=== PATIENT | female | born 1945 | race Caucasian/White ===

== ENCOUNTER 2017-08-18 11:35 | Day surgery (SDC) | payer MEDICARE, SELFPAY ==
[2017-08-18] VITALS (7 sets, daily range): BP systolic 95–132; BP diastolic 62–74; PULSE 60–73; RESP 16; TEMP 36–36.5; O2SAT 96–100; BMI 28.7
--- NOTE | 2017-08-18 14:13 | COLBX_PTH ---
PATIENT: QUINCY KRAUSE LOC: EN U#:[id number] AGE/SX: 72/F ROOM: RE08/18/[address]: Dr. Tarah Campbell MD : [id number] BED: DIS: 08/18/2017 SPEC #: [id number] RECD: 08/18/17 15:38 STATUS: PRAMOD REAna #: [id number] DAVID: 08/18/17 14:[address]: Tarah Campbell DEPT: SURGICAL PATHOLOGY RECD BY: Pedro Phelan ENTERED: 08/19/17 08:50 SP TYPE: COLON BX OTHR DR: Dr. Radha Chang MD Tissues: A - Cecum, NOS B - SPLENIC FLEXURE C - Sigmoid colon biopsy D - Rectum, NOS Procedures: Surgery Specimen Level IV HEADER OPERATION: Colonoscopy PRE-OP DIAGNOSIS: Screen TISSUE SUBMITTED: A ? Cecal polyp biopsy, B ? Splenic flexure polyp biopsy, C ? Sigmoid polyp biopsy, D ? Rectal polyp biopsy MICROSCOPIC DIAGNOSIS A. Cecal polyp, biopsy: Fragments of tubular adenoma. Melanosis coli. B. Colonic polyp at splenic flexure, biopsy: Fragments of tubular adenoma. Melanosis coli. C. Sigmoid colon polyp, biopsy: Tubular adenoma. Melanosis coli. D. Rectal polyp, biopsy: Colonic mucosa with focal hyperplastic change. Melanosis coli. AM:didi 08/20/17 MICROSCOPIC DESCRIPTION Slides are reviewed. GROSS DESCRIPTION A - Received in fixative is one container labeled with the patient's name and designated cecal polyp. The specimen consists of multiple irregular fragments of light jordan soft tissue that in aggregate measure 1?x 0.5 x 0.1 cm. The specimen is totally submitted in one cassette. B - Received in fixative is one container labeled with the patient's name and designated splenic flexure polyp. The specimen consists of multiple irregular fragments of light jordan soft tissue that in aggregate measure 1 x 0.2 x 0.1 cm. The specimen is totally submitted in one cassette. C - Received in fixative is one container labeled with the patient's name and designated sigmoid polyp. The specimen consists of one irregular fragment of light jordan soft tissue that measures 0.3 x 0.1 x 0.1 cm. The specimen is totally submitted in one cassette. D - Received in fixative is one container labeled with the patient's name and designated rectal polyp. The specimen consists of one irregular fragment of light jordan soft tissue that measures 0.2 x 0.2 x 0.1 cm. The specimen is totally submitted in one cassette. / AM:didi 08/19/17 TC:5 CPT: 14926 x4
--- NOTE | 2017-08-18 14:42 | PCM.DC.GS ---
Discharge Diet: No Restrictions Discharge Activity: Return to Normal Activity, May Not Drive - for today only Additional Dressing/Incision Instructions:: avoid OTC laxatives such as senna and cascara sagrada. drink plenty of fluids. avoid caffeinated beverages as it depletes your body water. eat plenty of fiber for bowel movements. can try metamucil and lactulose Allergies/Adverse Reactions: Allergies codeine Adverse Reaction (Verified 08/11/17 09:52) Nausea fluoxetine HCl [From Prozac] Adverse Reaction (Verified 08/11/17 09:52) shivers morphine Adverse Reaction (Verified 08/11/17 09:52) Nausea Medications to take at Discharge Aromatic Cascara Fluid Extract [Cascara Sagrada] 1,350 mg PO QHS 07/07/15 Atenolol [Atenolol] 25 mg PO BID 07/07/15 Biotin [Florian Biotin] 1,000 mcg PO DAILY 07/07/15 Calcium Carbonate/Vitamin D3 [Calcium 600 + Vit D3 800 Tab] 1 each PO DAILY 07/07/15 Cholecalciferol (Vitamin D3) [Vitamin D3] 5,000 unit PO DAILY 07/07/15 Estradiol [Estrace (G)] 1 mg PO DAILY 07/07/15 Flavoring Agent [Cinnamon] 500 g PO DAILY 07/07/15 Flaxseed Oil/Garfield 3,6,9 [Sv Flaxseed Oil 1,300 mg Sftgl] 1 each PO BID 07/07/15 Folic Acid 0.4 mg PO DAILY@0800 07/07/15 Glucosam/Chondr-MSM#6/Manganes [Glucosamine-Chondroitin Sftgl] 1 each PO DAILY 07/07/15 Lunarich 2 tab PO BID 07/07/15 Magnesium 250 mg PO DAILY 07/07/15 Niacin 100 mg PO DAILY 07/07/15 Nortriptyline HCl [Nortriptyline HCl] 150 mg PO QHS 07/07/15 Now 1 tab PO DAILY 07/07/15 Potassium Gluconate 500 mg PO DAILY 07/07/15 Red Yeast Rice 600 mg PO QHS 07/07/15 Tumeric 4 tab PO DAILY 07/07/15 Vitamin A 10,000 unit PO DAILY 07/07/15 Vitamin E 1,000 unit PO DAILY 07/07/15 Nerve Renew 1 capsule PO DAILY 08/11/17 Omeprazole [Prilosec] 20 mg PO DAILY 08/11/17 Primary Care Physician: Radha Chang MD [Primary Care Provider] -
--- NOTE | 2017-08-18 14:45 | DCINST_ITS ---
Discharge Diet: No Restrictions Discharge Activity: Return to Normal Activity, May Not Drive - for today only Additional Dressing/Incision Instructions:: avoid OTC laxatives such as senna and cascara sagrada. drink plenty of fluids. avoid caffeinated beverages as it depletes your body water. eat plenty of fiber for bowel movements. can try metamucil and lactulose Allergies/Adverse Reactions: Allergies codeine Adverse Reaction (Verified 08/11/17 09:52) Nausea fluoxetine HCl [From Prozac] Adverse Reaction (Verified 08/11/17 09:52) shivers morphine Adverse Reaction (Verified 08/11/17 09:52) Nausea Medications to take at Discharge Aromatic Cascara Fluid Extract [Cascara Sagrada] 1,350 mg PO QHS 07/07/15 Atenolol [Atenolol] 25 mg PO BID 07/07/15 Biotin [Florian Biotin] 1,000 mcg PO DAILY 07/07/15 Calcium Carbonate/Vitamin D3 [Calcium 600 + Vit D3 800 Tab] 1 each PO DAILY 03/13 Cholecalciferol (Vitamin D3) [Vitamin D3] 5,000 unit PO DAILY 07/07/15 Estradiol [Estrace (G)] 1 mg PO DAILY 07/07/15 Flavoring Agent [Cinnamon] 500 g PO DAILY 07/07/15 Flaxseed Oil/Deposit 3,6,9 [Sv Flaxseed Oil 1,300 mg Sftgl] 1 each PO BID Folic Acid 0.4 mg PO DAILY@0800 07/07/15 Glucosam/Chondr-MSM#6/Manganes [Glucosamine-Chondroitin Sftgl] 1 each PO DAILY 07/07/15 Lunarich 2 tab PO BID 07/07/15 Magnesium 250 mg PO DAILY 07/07/15 Niacin 100 mg PO DAILY 07/07/15 Nortriptyline HCl [Nortriptyline HCl] 150 mg PO QHS 07/07/15 Now 1 tab PO DAILY 07/07/15 Potassium Gluconate 500 mg PO DAILY 07/07/15 Red Yeast Rice 600 mg PO QHS 07/07/15 Tumeric 4 tab PO DAILY 07/07/15 Vitamin A 10,000 unit PO DAILY 07/07/15 Vitamin E 1,000 unit PO DAILY 07/07/15 Nerve Renew 1 capsule PO DAILY 08/11/17 Omeprazole [Prilosec] 20 mg PO DAILY 08/11/17 Primary Care Physician: Radha Chang MD [Primary Care Provider] -
--- NOTE | 2017-08-18 15:53 | OP.PCM_ITS ---
Report of Operation Date of Procedure: 08/18/17 Pre-Operative Diagnosis: screening for colon cancer, patient last had colonoscopy in 2007 Post-Operative Diagnosis: multiple colon polyps, melanosis coli, hemorrhoidal disease Surgery/Procedure Performed:: colonoscopy with polypectomies with cold grasper forceps Description of Surgical Findings:: melanosis coli noted throughout colon, colon cleansing preparation poor - required increased time to lavage and aspirate fecal material, multiple colon polyps noted of cecum, splenic flexure x 2, sigmoid colon and rectum, hemorrhoidal disease Type of Anesthesia:: MAC Anesthesiologist: Leonid Thomas Specimen's removed: colon polyps of cecum, splenic flexure (2), sigmoid colon, and rectum Estimated Blood Loss (mL): < 1 Fluids Replaced: see anesthesia note Description of Procedure: After informed consent was given, the patient was brought to the endoscopy suite and placed in the supine position. Appropriate time out protocol was followed. Appropriate cardiac, blood pressure, and pulse oximetry monitoring was placed. After stable vital signs were noted, the patient was given intravenous conscious sedation by the anesthesia provider. The patient was then placed in the left lateral decubitis position. The colonoscope was lubricated and carefully inserted into the patient?s anus. It was then advanced into the rectum, then into the sigmoid colon, then into the left descending colon, past the splenic flexure, into the transverse colon, past the hepatic flexure, then down into the right descending colon and into the cecum. The cecum was identified by: transillumination, confluence of the tenae coli, identification of the ileocecal valve and appendiceal orifice, and external pressure with indentation. The patient was noted to have melanosis coli throughout the colon. Also, she had a poor colon cleansing preparation, requiring time to lavage and aspirate out the fecal contents. However, the colon gómez were adequately visualized. In the cecum, there was a 1 cm polypoid lesion, removed completely using cold grasper forceps. At the splenic flexure, there were two small polyps - hyperplastic appearing, < 1cm, removed completely using cold grasper forceps. In the sigmoid colon, there was a small hyperplastic appearing polyp, < 1 cm, removed completely using cold grasper forceps. In the rectum, there was a < 1 cm polyp, that was hyperplastic appearing. It was removed completely using cold grasper forceps. No evidence of cancer was noted throughout the colon. There was no evidence of extrinsic compression and no inflammatory changes were noted. No intraluminal obstructing lesions, no strictures, and no ulcers were noted. Retroflex view in the rectum revealed no lesions in the rectal vault except for hemorrhoids. The colonoscope was removed intact. Patient tolerated procedure well. RECOMMENDATIONS: follow up surveillance colonoscopy will be determine upon review of pathology results. - Complications none noted
--- NOTE | 2017-08-18 15:54 | SUR.PHASEII ---
Per orders, clarification of homegoing instructions written on discharge homegoing sheet: ~Dr Campbell's office will call with biopsy results ~the results will determine when next colonscopy will be. ~Polyps were removed; when the office calls, they will inform pt from what part of the colon the polyps came.
== END 2017-08-18 15:56 | disposition home or self-care (01) ==
LOC: EN 11:36 → AC 11:39
PROVIDERS: Family Provider Internal Medicine; PCP Internal Medicine; Visit Provider Surgery
PROC: 0DJD8ZZ Inspection of Lower Intestinal Tract, Via Natural or Artificial Opening Endoscopic (ICD-10-PCS; CPT 45378; principal; 2017-08-18 12:55)
DX: Z12.11 Encounter for screening for malignant neoplasm of colon (principal); D12.0 Benign neoplasm of cecum; D12.3 Benign neoplasm of transverse colon; D12.5 Benign neoplasm of sigmoid colon; K63.89 Other specified diseases of intestine; K62.1 Rectal polyp; K64.9 Unspecified hemorrhoids; I10 Essential (primary) hypertension; M81.0 Age-related osteoporosis without current pathological fracture; K21.9 Gastro-esophageal reflux disease without esophagitis; H40.20X0 Unspecified primary angle-closure glaucoma, stage unspecified; G43.909 Migraine, unspecified, not intractable, without status migrainosus; Z87.19 Personal history of other diseases of the digestive system; Z85.828 Personal history of other malignant neoplasm of skin; Z79.899 Other long term (current) drug therapy
CPT/HCPCS: 45380; 88305; J7120

== ENCOUNTER 2018-05-26 12:49 | Observation (INO) | payer MEDICARE, SELFPAY ==
[2018-05-26] VITALS (11 sets, daily range): BP systolic 104–155; BP diastolic 60–96; PULSE 71–78; RESP 10–23; TEMP 36.4–37.1; O2SAT 95–100; BMI 31.6; BMI 28.5
--- NOTE | 2018-05-26 13:07 | RAD_ITS ---
STUDY: X-RAY - RIGHT ANKLE REASON FOR EXAM: Female, 73 years old. Fracture dislocation secondary to a fall. TECHNIQUE: AP and lateral view(s) of the ankle. COMPARISON: None. FINDINGS: There is evidence of posterior lateral dislocation of the tibiotalar joint with displaced oblique fracture of the distal fibula. I also suspect a possible fracture of the posterior malleolus of the distal tibia. Normal visualized talus and calcaneus. The visualized subtalar, talonavicular, calcaneocuboid and tarsal articulations are normal. Soft tissue swelling. RAD/Ankle 2 Views IMPRESSION: Fracture dislocation of the ankle joint involving the distal fibula and possibly the posterior aspect of the distal tibia. Soft tissue swelling. Electronically Signed: Khanh Huston MD at 13:59 EST , Service support ,
[2018-05-26] MEDS: fentaNYL 100 MCG/2 ML Ampul 50 MCG IV (13:56)
--- NOTE | 2018-05-26 14:21 | RAD_ITS ---
STUDY: X-RAY - RIGHT ANKLE REASON FOR EXAM: Female, 73 years old. Post reduction examination. TECHNIQUE: 3 view(s) of the ankle. COMPARISON: Comparison is made with prior examination done earlier today. FINDINGS: There is satisfactory reduction of the distal fibular fracture as well as the fracture involving the posterior aspect of the distal tibia. There is asymmetry of the ankle mortise. Normal visualized talus and calcaneus. The visualized subtalar, talonavicular, calcaneocuboid and tarsal articulations are normal. Soft tissue swelling. RAD/Ankle min 3 Views IMPRESSION: Satisfactory alignment. Residual asymmetry of the ankle mortise. Electronically Signed: Khanh Huston MD at 15:02 EST , Service support ,
[2018-05-26] MEDS: Propofol 200 MG/20 ML Vial IV BOLUS (14:29)
--- NOTE | 2018-05-26 16:07 | ED.VISSUMM ---
- ER Visit Summary Date of Service: 05/26/18 Chief Complaint: Ankle injury History of Present Illness: The patient is a 73 F who slipped and fell on the ice today resulting in to the right ankle. She denies any other injuries. Her left foot is in a postop shoe and Torsten wrap having had prior hallux varus surgery by Dr. Arias. Physical Examination: Afebrile vital signs stable Gen: Well-nourished well-developed Head: Normocephalic atraumatic Eyes: Perrl EOMI ENT: TMs clear no rhinorrhea moist mucous membranes Neck: Supple no lymphadenopathy no JVD nontender CVS: Regular rate rhythm no murmurs normal S1-S2 Respiratory: No distress clear to auscultation bilaterally chest nontender Abdomen: Soft nontender nondistended normal bowel sounds no masses Back: Nontender Extremity: There is obvious deformity fracture dislocation to the right ankle. There is a superficial abrasion to the medial ankle. There is tenting of the skin by the bone. There is excellent capillary refill however and sensation. Skin: Normal color no rash Neuro: alert orientated ?3 CN II-XII intact normal strength sensation reflexes gait cerebellar Psych: Normal affect normal mood Test Results: X-rays revealed a comminuted distal fibular fracture and posterior malleolus fracture of the tibia. With fracture dislocation. Emergency Department Course and Treatment: Patient provided informed and written consent for the use of procedural sedation for closed reduction of the dislocation and fracture. Patient received 50 mg of fentanyl followed a few minutes later by 0.5 mg/kg bolus of propofol until adequate sedation was achieved. She then received 0.25 mg/kg aliquots to maintain sedation throughout procedure. The fracture dislocation was re-created and easily reduced. It was noted that the joint is unstable and would continue to dislocate. She was placed in a posterior and stirrup Ortho-Glass splint. She was allowed to recover. She had no hypotension or apnea episodes. Post reduction films showed good reduction. Case was discussed with Dr. Anne. Patient's family is concerned that she cannot go home due to being a fall risk. They do not feel that she can safely use crutches. I will have the social worker aide speak with her about placement in rehab facility. Social work notes the patient not able to go directly to the rehab facility tonight. I will contact hospitalist for admission for observational stay. Impression: 1. Right closed fracture dislocation of ankle 2. Procedural sedation by physician 3. Reduction by physician 4. Splint by physician This note was generated with [employer] dictation software. It may contain incorrect words, spelling, and punctuation that were not noted in review of the chart prior to signing ED Disposition - Plan for ED Patient: Chief Complaint: Lower Extremity Injury Referrals: Radha Chang MD [Primary Care Provider] -
--- NOTE | 2018-05-26 16:22 | ED.DCSUM_ITS ---
- ER Visit Summary Date of Service: 05/26/18 Chief Complaint: Ankle injury History of Present Illness: The patient is a 73 F who slipped and fell on the ice today resulting in to the right ankle. She denies any other injuries. Her left foot is in a postop shoe and Torsten wrap having had prior hallux varus surgery by Dr. Arias. Physical Examination: Afebrile vital signs stable Gen: Well-nourished well-developed Head: Normocephalic atraumatic Eyes: Perrl EOMI ENT: TMs clear no rhinorrhea moist mucous membranes Neck: Supple no lymphadenopathy no JVD nontender CVS: Regular rate rhythm no murmurs normal S1-S2 Respiratory: No distress clear to auscultation bilaterally chest nontender Abdomen: Soft nontender nondistended normal bowel sounds no masses Back: Nontender Extremity: There is obvious deformity fracture dislocation to the right ankle. There is a superficial abrasion to the medial ankle. There is tenting of the skin by the bone. There is excellent capillary refill however and sensation. Skin: Normal color no rash Neuro: alert orientated ?3 CN II-XII intact normal strength sensation reflexes gait cerebellar Psych: Normal affect normal mood Test Results: X-rays revealed a comminuted distal fibular fracture and posterior malleolus fracture of the tibia. With fracture dislocation. Emergency Department Course and Treatment: Patient provided informed and written consent for the use of procedural sedation for closed reduction of the dislocation and fracture. Patient received 50 mg of fentanyl followed a few minutes later by 0.5 mg/kg bolus of propofol until adequate sedation was achieved. She then received 0.25 mg/kg aliquots to maintain sedation throughout procedure. The fracture dislocation was re-created and easily reduced. It was noted that the joint is unstable and would continue to dislocate. She was placed in a posterior and stirrup Ortho-Glass splint. She was allowed to recover. She had no hypotension or apnea episodes. Post reduction films showed good reduction. Case was discussed with Dr. Anne. Patient's family is concerned that she cannot go home due to being a fall risk. They do not feel that she can safely use crutches. I will have the executive secretary social welfare speak with her about placement in rehab facility. Social work notes the patient not able to go directly to the rehab facility tonight. I will contact hospitalist for admission for observational stay. Impression: 1. Right closed fracture dislocation of ankle 2. Procedural sedation by physician 3. Reduction by physician 4. Splint by physician This note was generated with [employer] dictation software. It may contain incorrect words, spelling, and punctuation that were not noted in review of the chart prior to signing ED Disposition - Plan for ED Patient: Chief Complaint: Lower Extremity Injury Referrals: Radha Chang MD [Primary Care Provider] -
--- NOTE | 2018-05-26 17:00 | CM.ED ---
Social Work Assessment Referral Date: 05/26/18 Date of Assessment: 05/26/18 Informant: DR. LÓPEZ Reason for Consult: D/C PLANNING/ASSISTED Information obtained from: PATIENT AND DAUGHTER'S JERROD ISAAC ([phone]) AND JULIO SARGENT ([phone]) Living Arrangements: PATIENT LIVES ALONE IN A 1 STORY HOME WITH 4 STEPS TO ENTER. Supports: PATIENT HAS GOOD SUPPORT FROM FAMILY AND FRIENDS. Social/Family Stressors: PATIENT FELL ON THE ICE THIS DAY AND FRACTURED HER R ANKLE. PATIENT WITH POST OP SHOE ON L FOOT. FAMILY STATES PATIENT UNABLE TO RETURN HOME SAFELY SHE IS NON WB TO R ANKLE. FAMILY WANTING ASSISTED PLACEMENT. PATIENT RESISTANT, BUT UNDERSTANDS DAUGHTERS CONCERNS. Mental Health History: PATIENT ADMITS TO HX OF ANXIETY AND DEPRESSION AND STATES IS TREATED WITH MEDICATION PRESCRIBED BY PCP DR. COOPER. Substance Abuse History: PATIENT DENIES ANY HX OF SUBSTANCE ABUSE. Interventions: DISCUSSED REFERRAL TO SNF'S AND NEED TO OBTAIN INSURANCE AUTH PRIOR TO D/C. EDUCATION PROVIDED ON PROCESS. PATIENT AND FAMILY STATE UNABLE TO PRIVATE PAY TO ASSISTED. PATIENT REQUESTING REFERRAL TO [facility]. ATTEMPTED TO CALL [facility] TO DISCUSS REFERRAL AND INQUIRE ON BED AVAILABILITY. WORKER STATES ADMISSIONS WORKER HAS LEFT FOR THE DAY. Assessment: PATIENT IS A 73 Y/O FEMALE WHO PRESENTS TO THE ED AFTER A FALL ON THE ICE. PATIENT WITH R ANKLE FX AND POST OP SHOE ON L FOOT. PATIENT LIVES HOME ALONE IN A 1 STORY HOME WITH 4 STEPS TO ENTER. PATIENT STATES PRIOR TO FALL WAS INDEPENDENT WITH ALL ADLS AND TRANSPORTATION. PATIENT ADMITS TO HX OF ANXIETY AND DEPRESSION AND STATES IS TREATED WITH MEDICATION. FAMILY FEEL PATIENT WOULD BENEFIT FROM ASSISTED PLACEMENT PATIENT IS HIGH RISK FOR FALLS. PATIENT RESISTANT, BUT UNDERSTANDS DAUGHTERS CONCERNS AND AGREES TO SHORT STAY. DISCUSSED PROCESS OF REFERRAL AND PRECERT. ALL QUESTIONS ANSWERED AT THIS TIME. ANTICIPATE ADMISSION. PLAN: ADMIT
--- NOTE | 2018-05-26 18:05 | PCM.HP.STD ---
Problem List (1) Closed right ankle fracture Status: Acute Qualifiers: Encounter type: initial encounter Qualified Code(s): S82.891A - Other fracture of right lower leg, initial encounter for closed fracture (2) HTN (hypertension) Status: Chronic Qualifiers: Hypertension type: essential hypertension Qualified Code(s): I10 - Essential (primary) hypertension (3) Anxiety and depression Status: Chronic (4) HLD (hyperlipidemia) Status: Chronic Qualifiers: Hyperlipidemia type: unspecified Qualified Code(s): E78.5 - Hyperlipidemia, unspecified (5) Chronic constipation Status: Chronic (6) Osteoarthritis Status: Chronic Qualifiers: Osteoarthritis location: unspecified site Osteoarthritis type: unspecified Qualified Code(s): M19.90 - Unspecified osteoarthritis, unspecified site (7) GERD (gastroesophageal reflux disease) Status: Chronic Qualifiers: Esophagitis presence: esophagitis presence not specified Qualified Code(s): K21.9 - Gastro-esophageal reflux disease without esophagitis (8) Brain aneurysm Status: Chronic History of Present Illness Date of Admission: 05/26/18 Chief Complaint: R Ankle pain The patient is a 73 y/o F w/ PMHx: HTN, HLD, GERD, OA, Anxiety and Depression who presents to the [facility] ED on 05/26/18 with history of slipping on the ice while walking, aggressively twisting her right ankle with notable debility, pain and edema following complicated by left post-op shoe in place with JEANNIE wrap secondary to prior hallux varus surgery by Dr. Arias in addition to recent left third toe small distal phalanx surgery with suture in place approximate 5 weeks prior who presents to the [facility] ED on 05/26/18 secondary to slipping on the ice with R ankle deformity, debility and pain following. In the ED workup included T 98.7, heart rate 77, BP 140/86, respiratory rate 18, 97% on room air, no labs were obtained, plain film with comminuted distal fibular fracture and posterior malleolus fracture of the tibia with dislocation therefore ED consent obtained for procedural sedation for closed reduction of the dislocation and the fracture with administration of fentanyl as well as propofol bolus with the reduction noted and splint placed per ED, Ortho-Glass with postreduction films demonstrating appropriate decent reduction. Following intervention attempts for discharge to home versus care home facility secondary to debility however patient's family concerned about returning to home and patient having difficulty with usage of crutches. ED discussed case with Dr. 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 Arias with planned possible surgical intervention on 05/28/18. Past Medical History Past Medical History (Chronic Problems): Chronic Problems HTN (hypertension) (Chronic) Anxiety and depression (Chronic) HLD (hyperlipidemia) (Chronic) Chronic constipation (Chronic) Osteoarthritis (Chronic) GERD (gastroesophageal reflux disease) (Chronic) Brain aneurysm (Chronic) Allergies codeine Adverse Reaction (Verified 05/26/18 12:55) Nausea fluoxetine HCl [From Prozac] Adverse Reaction (Verified 05/26/18 12:55) shivers morphine Adverse Reaction (Verified 05/26/18 12:55) Nausea Home Medications: Ambulatory Orders Medication Instructions Recorded Aromatic Cascara Fluid Extract 1,350 mg PO QHS 07/07/15 [Cascara [place]] Cholecalciferol (Vitamin D3) 5,000 unit PO DAILY 07/07/15 [Vitamin D3] Estradiol [Estrace (G)] 1 mg PO DAILY 07/07/15 Flaxseed Oil/Loving 3,6,9 [Sv 1 each PO BID 07/07/15 Flaxseed Oil 1,300 mg Sftgl] Folic Acid 0.4 mg PO DAILY@0800 07/07/15 Glucosam/Chondr-Msm6/Manganese 1 each PO DAILY 07/07/15 [Glucosamine-Chondroitin Sftgl] Lunarich 2 tab PO BID 07/07/15 Magnesium 250 mg PO DAILY 07/07/15 Niacin 100 mg PO DAILY 07/07/15 Red Yeast Rice 600 mg PO QHS 07/07/15 Tumeric 4 tab PO DAILY 07/07/15 Vitamin A 10,000 unit PO DAILY 07/07/15 Vitamin E 1,000 unit PO DAILY 07/07/15 Omeprazole [Prilosec] 20 mg PO DAILY 08/11/17 Lactulose 10 gm PO BID PRN #1 bottle 08/18/17 Atenolol 25 mg PO BID 05/26/18 Biotin 1 mg PO DAILY 05/26/18 Nortriptyline HCl 75 mg PO BID 05/26/18 Reliv 1 tab PO 4X/DAY 05/26/18 Zolpidem Tartrate 10 mg PO QHS 05/26/18 Surgical History: - - 06/2015 first metatarsal osteotomy bunionectomy, second metatarsal osteotomy, repair second metatarsal phalangeal joint plantar plate, second toe arthrodesis, flexortenotomy of third and fourth toes, recent left third toe in office debridement approximate 5 weeks prior, tonsillectomy, history of tubal with left salpingo-oophorectomy and appendectomy, follow-up hysterectomy and right salpingo-oophorectomy, tummy tuck, bilateral vein stripping lower extremities, brain aneurysm History of Brain Aneurysm x 4 (s/p coiling, clipping x 2, wrapping). 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 Denies: Chills, Fever, Weight Change HEENT: Denies: Head Aches, Sinus Congestion, Sinus Drainage Cardiovascular: Denies: Chest Pain, Palpitations Respiratory: Denies: Cough, Shortness of breath at rest, Sputum production Gastrointestinal: Denies: Abdominal Pain, Nausea, Vomiting Genitourinary: Denies: Dysuria Musculoskeletal: Reports: Foot Pain, Joint Pain, Joint stiffness, Joint swelling, Joint Tenderness, Muscle pain Skin: Reports: Skin Changes. Denies: Rash, Wounds Neurological: Reports: Numbness - Chronic neuropathy.. Denies: Focal weakness, Tingling Psychiatric: Reports: Anxiety, Depression. Denies: Homicidal Ideations, Suicidal Ideations Hematologic/ Lymphatic: Denies: Easy Bruising, Easy Bleeding VTE Information - Inpt Only VTE Present on Admission: No VTE Mechan Device Prophylaxis: SCD's VTE Pharm Prophylaxis ordered?: Yes Patient Problems: Active and Suspected Problems Closed right ankle fracture (Acute) Subjective: Patient seated upright in the bed, notes pain currently controlled although does have notable severe bilateral lower extremity neuropathy with chronic numbness. Objective: Physical Examination: General: awake, alert, oriented x 3 and cooperative, seated upright in bed in no apparent distress. Skin: normal color, turgor, no icterus, cyanosis, right lower extremity with Ortho-Glass cast in place with notably edematous toes, able to move some, left lower extremity status post remote surgical interventions with most recently approximately 5 weeks prior left distal third toe debridement with suture still in place, left ankle edematous otherwise well-appearing. HEENT: AT/NC, EOMI, PERRLA, MMM, no carotid bruits or JVD noted. Lungs: CTA bilaterally, moderate effort, mild decrease BL bases, no rales, ronchi or wheezing. Heart: rRgular rate and rhythm; no gallop, rub audible. Abdomen: soft, NTTP, ND, normal BS, no HSM. Extremities: no cyanosis, clubbing, see skin. Neurological: patient awake, alert, oriented x 3; cognitive function intact; pupils equally reactive to light and accomodation; cranial nerves II-XII grossly normal, moving all 4 extremities although limited right lower extremity given recent fracture with splinting complicated by left foot debility, strength accordingly severely globally decreased. Psychiatric: affect appears normal, no acute evidence of depressive or anxiety feelings. - Physical Exam Vital Signs Temp Pulse Resp BP Pulse Ox 97.5 F L 73 16 149/74 H 100 05/26/18 18:02 05/26/18 18:02 05/26/18 18:02 05/26/18 18:02 05/26/18 18:02 Oxygen Flow Rate (L/min) [1 ( 4 Initial Baseline)] Oxygen Flow Rate (L/min) 4 Oxygen Delivery Method [2] Nasal Cannula Oxygen Delivery Method [1 ( Nasal Cannula Initial Baseline)] Oxygen Delivery Method Room Air Weight: 161 lb Body Mass Index (BMI) 28.5 Assessment/Plan All Active Problems Closed right ankle fracture (Acute) The patient is a 73 y/o F w/ PMHx: HTN, HLD, GERD, OA, Anxiety and Depression who presents to the [facility] ED on 05/26/18 with history of slipping on the ice while walking, aggressively twisting her right ankle with notable debility, pain and edema following complicated by left post-op shoe in place with JEANNIE wrap secondary to prior hallux varus surgery by Dr. Arias in addition to recent left third toe small distal phalanx surgery with suture in place approximate 5 weeks prior who presents to the [facility] ED on 05/26/18 secondary to slipping on the ice with R ankle deformity, debility and pain following. (1) General debility, R Ankle, RLE pain s/p mechanical fall w/ comminuted distal fibular and posterior malleolar tibial fracture: Plain film noting comminuted distal fibular fracture and posterior malleolus fracture of the tibia with dislocation with ED procedural sedation and reduction with Ortho-Glass splint placement and post reduction films demonstrating appropriate reduction. Podiatry contacted per ED, not immediately available to see patient and discussed admission per Hospitalist service. Will admit to [facility], given no current OR date, will allow diet, gentle IVFs, obtain vitamin D level, leary placement if needed however, should be able to ambulate with assist to bedside commode, NWB to RLS, continue L boot per Dr. Arias discretion, offloading ankle RLE, elevation RLE, monitor I/Os, frequent positioning, fall precautions, pain, anti-emetic regimen. PT/OT, CM consulted for discharge planning as likely will not be able to return home. Per [facility] Perioperative Cardiac Risk Index given > 4 METS, age 73, Cr from prior most recent normal, current BMP requested, ASA 2 for orthopedic intervention, estimated risk of perioperative myocardial infarction or cardiac arrest low. Will obtain EKG prior to transition to operative intervention. (2) Prior Remote L Foot Surgery w/ Recent 3rd Toe Distal Surgery: Podiatry consulted, noted 06/2015 first metatarsal osteotomy bunionectomy, second metatarsal osteotomy, repair second metatarsal phalangeal joint plantar plate, second toe arthrodesis, flexortenotomy of third and fourth toes with recent ~ 5 weeks prior in office treatment distal left third toe with sutures in place, continue boot parameters, dry dressing daily to the region, wound consult requested, complicates presentation, PT/OT, CM consulted for discharge planning as likely will not be able to return home. (3) Hypertension: Continue home regimen including atenolol, PRN hydralazine. (4) Hyperlipidemia: Will hold patient home niacin and red yeast rice. (5) Chronic constipation: Continue home lactulose regimen as needed. (6) Anxiety and Depression: Continue home nortriptyline regimen. (7) History of Brain Aneurysm: Aneurysm x4, s/p coiling x 1, clipping x 2, wrapping x 1, notes ALL MRI compatible, follows annually with her neurosurgeon with imaging. (8) GERD: PPI. (9) DVT Prophylaxis: SCDs, lovenox pending admission BMP, although most recent meditech renal function normal. Code Visit OBSV E&M: 62172 Initial observation care L3
--- NOTE | 2018-05-26 18:10 | HP.PCM_ITS ---
Problem List (1) Closed right ankle fracture Status: Acute Qualifiers: Encounter type: initial encounter Qualified Code(s): S82.891A - Other fracture of right lower leg, initial encounter for closed fracture (2) HTN (hypertension) Status: Chronic Qualifiers: Hypertension type: essential hypertension Qualified Code(s): I10 - Essential (primary) hypertension (3) Anxiety and depression Status: Chronic (4) HLD (hyperlipidemia) Status: Chronic Qualifiers: Hyperlipidemia type: unspecified Qualified Code(s): E78.5 - Hyperlipidemia, unspecified (5) Chronic constipation Status: Chronic (6) Osteoarthritis Status: Chronic Qualifiers: Osteoarthritis location: unspecified site Osteoarthritis type: unspecified Qualified Code(s): M19.90 - Unspecified osteoarthritis, unspecified site (7) GERD (gastroesophageal reflux disease) Status: Chronic Qualifiers: Esophagitis presence: esophagitis presence not specified Qualified Code(s): K21.9 - Gastro-esophageal reflux disease without esophagitis (8) Brain aneurysm Status: Chronic History of Present Illness Date of Admission: 05/26/18 Chief Complaint: R Ankle pain The patient is a 73 y/o F w/ PMHx: HTN, HLD, GERD, OA, Anxiety and Depression who presents to the [facility] ED on 05/26/18 with history of slipping on the ice while walking, aggressively twisting her right ankle with notable debility, pain and edema following complicated by left post-op shoe in place with JEANNIE wrap secondary to prior hallux varus surgery by Dr. Arias in addition to recent left third toe small distal phalanx surgery with suture in place approximate 5 weeks prior who presents to the [facility] ED on 05/26/18 secondary to slipping on the ice with R ankle deformity, debility and pain following. In the ED workup included T 98.7, heart rate 77, BP 140/86, respiratory rate 18, 97% on room air, no labs were obtained, plain film with comminuted distal fibular fracture and posterior malleolus fracture of the tibia with dislocation therefore ED consent obtained for procedural sedation for closed reduction of the dislocation and the fracture with administration of fentanyl as well as propofol bolus with the reduction noted and splint placed per ED, Ortho-Glass with postreduction films demonstrating appropriate decent reduction. Following intervention attempts for discharge to home versus intermediate facility secondary to debility however patient's family concerned about returning to home and patient having difficulty with usage of crutches. ED discussed case with Dr. Anne who discussed presentation with patient's supervisor microbiology technologists, Dr. Arias with planned possible surgical intervention on 05/28/18. Past Medical History Past Medical History (Chronic Problems): Chronic Problems HTN (hypertension) (Chronic) Anxiety and depression (Chronic) HLD (hyperlipidemia) (Chronic) Chronic constipation (Chronic) Osteoarthritis (Chronic) GERD (gastroesophageal reflux disease) (Chronic) Brain aneurysm (Chronic) Allergies codeine Adverse Reaction (Verified 05/26/18 12:55) Nausea fluoxetine HCl [From Prozac] Adverse Reaction (Verified 05/26/18 12:55) shivers morphine Adverse Reaction (Verified 05/26/18 12:55) Nausea Home Medications: Ambulatory Orders Medication Instructions Recorded Aromatic Cascara Fluid Extract 1,350 mg PO QHS 07/07/15 [Cascara Sagr[place]] Cholecalciferol (Vitamin D3) 5,000 unit PO DAILY 07/07/15 [Vitamin D3] Estradiol [Estrace (G)] 1 mg PO DAILY 07/07/15 Flaxseed Oil/Isabella 3,6,9 [Sv 1 each PO BID 07/07/15 Flaxseed Oil 1,300 mg Sftgl] Folic Acid 0.4 mg PO DAILY@0800 07/07/15 Glucosam/Chondr-Msm6/Manganese 1 each PO DAILY 07/07/15 [Glucosamine-Chondroitin Sftgl] Lunarich 2 tab PO BID 07/07/15 Magnesium 250 mg PO DAILY 07/07/15 Niacin 100 mg PO DAILY 07/07/15 Red Yeast Rice 600 mg PO QHS 07/07/15 Tumeric 4 tab PO DAILY 07/07/15 Vitamin A 10,000 unit PO DAILY 07/07/15 Vitamin E 1,000 unit PO DAILY 07/07/15 Omeprazole [Prilosec] 20 mg PO DAILY 08/11/17 Lactulose 10 gm PO BID PRN #1 bottle 08/18/17 Atenolol 25 mg PO BID 05/26/18 Biotin 1 mg PO DAILY 05/26/18 Nortriptyline HCl 75 mg PO BID 05/26/18 Reliv 1 tab PO 4X/DAY 05/26/18 Zolpidem Tartrate 10 mg PO QHS 05/26/18 Surgical History: - - 06/2015 first metatarsal osteotomy bunionectomy, second metatarsal osteotomy, repair second metatarsal phalangeal joint plantar plate, second toe arthrodesis, flexortenotomy of third and fourth toes, recent left third toe in office debridement approximate 5 weeks prior, tonsillectomy, history of tubal with left salpingo-oophorectomy and appendectomy, follow-up hysterectomy and right salpingo-oophorectomy, tummy tuck, bilateral vein stripping lower extremities, brain aneurysm History of Brain Aneurysm x 4 (s/p coiling, clipping x 2, wrapping). 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 Denies: Chills, Fever, Weight Change HEENT: Denies: Head Aches, Sinus Congestion, Sinus Drainage Cardiovascular: Denies: Chest Pain, Palpitations Respiratory: Denies: Cough, Shortness of breath at rest, Sputum production Gastrointestinal: Denies: Abdominal Pain, Nausea, Vomiting Genitourinary: Denies: Dysuria Musculoskeletal: Reports: Foot Pain, Joint Pain, Joint stiffness, Joint swelling, Joint Tenderness, Muscle pain Skin: Reports: Skin Changes. Denies: Rash, Wounds Neurological: Reports: Numbness - Chronic neuropathy.. Denies: Focal weakness, Tingling Psychiatric: Reports: Anxiety, Depression. Denies: Homicidal Ideations, Suicidal Ideations Hematologic/ Lymphatic: Denies: Easy Bruising, Easy Bleeding VTE Information - Inpt Only VTE Present on Admission: No VTE Mechan Device Prophylaxis: SCD's VTE Pharm Prophylaxis ordered?: Yes Patient Problems: Active and Suspected Problems Closed right ankle fracture (Acute) Subjective: Patient seated upright in the bed, notes pain currently controlled although does have notable severe bilateral lower extremity neuropathy with chronic numbness. Objective: Physical Examination: General: awake, alert, oriented x 3 and cooperative, seated upright in bed in no apparent distress. Skin: normal color, turgor, no icterus, cyanosis, right lower extremity with Ortho-Glass cast in place with notably edematous toes, able to move some, left lower extremity status post remote surgical interventions with most recently approximately 5 weeks prior left distal third toe debridement with suture still in place, left ankle edematous otherwise well-appearing. HEENT: AT/NC, EOMI, PERRLA, MMM, no carotid bruits or JVD noted. Lungs: CTA bilaterally, moderate effort, mild decrease BL bases, no rales, ronchi or wheezing. Heart: rRgular rate and rhythm; no gallop, rub audible. Abdomen: soft, NTTP, ND, normal BS, no HSM. Extremities: no cyanosis, clubbing, see skin. Neurological: patient awake, alert, oriented x 3; cognitive function intact; pupils equally reactive to light and accomodation; cranial nerves II-XII grossly normal, moving all 4 extremities although limited right lower extremity given recent fracture with splinting complicated by left foot debility, strength accordingly severely globally decreased. Psychiatric: affect appears normal, no acute evidence of depressive or anxiety feelings. - Physical Exam Vital Signs Temp Pulse Resp BP Pulse Ox 97.5 F L 73 16 149/74 H 100 05/26/18 18:02 05/26/18 18:02 05/26/18 18:02 05/26/18 18:02 05/26/18 18:02 Oxygen Flow Rate (L/min) [1 ( 4 Initial Baseline)] Oxygen Flow Rate (L/min) 4 Oxygen Delivery Method [2] Nasal Cannula Oxygen Delivery Method [1 ( Nasal Cannula Initial Baseline)] Oxygen Delivery Method Room Air Weight: 161 lb Body Mass Index (BMI) 28.5 Assessment/Plan All Active Problems Closed right ankle fracture (Acute) The patient is a 73 y/o F w/ PMHx: HTN, HLD, GERD, OA, Anxiety and Depression who presents to the [facility] ED on 05/26/18 with history of slipping on the ice while walking, aggressively twisting her right ankle with notable debility, pain and edema following complicated by left post-op shoe in place with JEANNIE wrap secondary to prior hallux varus surgery by Dr. Arias in addition to recent left third toe small distal phalanx surgery with suture in place approximate 5 weeks prior who presents to the [facility] ED on 05/26/18 secondary to slipping on the ice with R ankle deformity, debility and pain following. (1) General debility, R Ankle, RLE pain s/p mechanical fall w/ comminuted distal fibular and posterior malleolar tibial fracture: Plain film noting comminuted distal fibular fracture and posterior malleolus fracture of the tibia with dislocation with ED procedural sedation and reduction with Ortho-Glass splint placement and post reduction films demonstrating appropriate reduction. Podiatry contacted per ED, not immediately available to see patient and discussed admission per Hospitalist service. Will admit to [facility], given no current OR date, will allow diet, gentle IVFs, obtain vitamin D level, leary placement if needed however, should be able to ambulate with assist to bedside commode, NWB to RLS, continue L boot per Dr. Arias discretion, offloading ankle RLE, elevation RLE, monitor I/Os, frequent positioning, fall precautions, pain, anti-emetic regimen. PT/OT, CM consulted for discharge planning as likely will not be able to return home. Per [facility] Perioperative Cardiac Risk Index given > 4 METS, age 73, Cr from prior most recent normal, current BMP requested, ASA 2 for orthopedic intervention, estimated risk of perioperative myocardial infarction or cardiac arrest low. Will obtain EKG prior to transition to operative intervention. (2) Prior Remote L Foot Surgery w/ Recent 3rd Toe Distal Surgery: Podiatry consulted, noted 06/2015 first metatarsal osteotomy bunionectomy, second metatarsal osteotomy, repair second metatarsal phalangeal joint plantar plate, second toe arthrodesis, flexortenotomy of third and fourth toes with recent ~ 5 weeks prior in office treatment distal left third toe with sutures in place, continue boot parameters, dry dressing daily to the region, wound consult requested, complicates presentation, PT/OT, CM consulted for discharge planning as likely will not be able to return home. (3) Hypertension: Continue home regimen including atenolol, PRN hydralazine. (4) Hyperlipidemia: Will hold patient home niacin and red yeast rice. (5) Chronic constipation: Continue home lactulose regimen as needed. (6) Anxiety and Depression: Continue home nortriptyline regimen. (7) History of Brain Aneurysm: Aneurysm x4, s/p coiling x 1, clipping x 2, wrapping x 1, notes ALL MRI compatible, follows annually with her neurosurgeon with imaging. (8) GERD: PPI. (9) DVT Prophylaxis: SCDs, lovenox pending admission BMP, although most recent meditech renal function normal. Code Visit OBSV E&M: 63434 Initial observation care L3
--- NOTE | 2018-05-26 18:48 | EKG12_ITS ---
Test Reason : HTN Blood Pressure : / mmHG Vent. Rate : 071 BPM Atrial Rate : 071 BPM P-R Int : 166 ms QRS Dur : 090 ms QT Int : 382 ms P-R-T Axes : 021 023 036 degrees QTc Int : 415 ms Normal sinus rhythm Normal ECG When compared with ECG of 20-JAN-2013 14:57, No significant change was found Confirmed by RAFAEL TAVERA, GOLDY ([id number]), acquisition editor BELLA RUGGIERO ([id number] on 05/29/2018 3:47:31 PM Referred By: Erlinda Palacios Confirmed By:GOLDY HALL MD
[2018-05-26 19:14] LABS: Absolute Lymphocyte Count 2.01 X10^3/ul (0.83-4.51); Absolute Neutrophil Count 5.9 X10^3/uL (2.0-7.7); Basophil# 0.02 X10^3/uL; Basophil% 0.2 % (0-1); Eosinophil# 0.16 X10^3/uL; Eosinophils% 1.8 % (0-5); Hematocrit 41.8 % (37-47); Hemoglobin 13.4 g/dl (12.0-15.0); Lymphocyte # 2.01 X10^3/ul (4.0); Lymphocyte % 22.9 % (19-41); Mean Corp Hgb Conc 32.1 g/gl (32-36); Mean Corpuscular Hgb 30.3 pg (27.0-32.0); Mean Corpuscular Volume 94.6 fL (81-99); Mean Platelet Vol. 8.5 fl (6.2-12.0); Monocyte# 0.63 X10^3/uL; Monocyte% 7.2 % (0-10); Neutrophil # 5.93 X10^3/uL (2.7-7.7); Neutrophil % 67.7 % (47-70); POSITIVE COUNT NO; POSITIVE DIFFERENTIAL NO; POSITIVE MORPHOLOGY NO; Platelet Count 276 K/mm3 (150-450); RBC Distribution Width CV 12.4 % (11.6-14.6); RBC Distribution Width SD 42.4 fl (35.1-43.9); Red Blood Count 4.42 M/mm3 (4.2-5.4); White Blood Count 8.8 K/mm3 (4.4-11.0)
[2018-05-26 19:17] LABS: International Normalized Ratio 0.9; Prothrombin Time (Protime)PT. 12.6 SECONDS (11.7-14.9)
[2018-05-26 19:18] LABS: Partial Thromboplast Time 26.9 Seconds (24.1-36.2)
[2018-05-26] MEDS: 0.9% Normal Saline 1,000 ML 100 ML IV (19:20)
[2018-05-26 19:25] LABS: ALB/GLOB Ratio 0.8 RATIO (0.9-2.4); AST(SGOT) 21 U/L (15-37); Alanine Aminotransfer ALT/SGPT 28 U/L (13-56); Albumin, Serum 3.2 g/dL (3.2-5.0); Alkaline Phosphatase 62 U/L (45-117); Anion Gap 8 (5-15); BUN 15 mg/dL (7-18); BUN/Creat Ratio 16.6 RATIO (10-20); Calcium,Total 8.2 mg/dL (8.5-10.1); Chloride 105 mmol/L (98-107); EST Glomerular Filtration Rate 65 mL/min (>60); Est Glom Filt Rate - Afr Amer 79 mL/min (>60); Estimated Creatinine Clearance 46.74 ml/min; Globulin 3.9 g/dL (2.2-4.2); Glucose 146 mg/dL (74-106); Potassium 3.9 mmol/L (3.5-5.1); Protein, Total 7.1 g/dL (6.4-8.2); Sodium Level 140 mmol/L (136-145)
[2018-05-26] MEDS: Atenolol 25 MG Tablet PO (21:56)
[2018-05-26] MEDS: Nortriptyline 25 MG Capsule 75 MG PO (21:56)
[2018-05-27] MEDS: Zolpidem Tartrate 5 MG Tablet PO ×2 (00:15→20:56)
[2018-05-27 04:23] VITALS: BP 130/70; PULSE 73; RESP 16; TEMP 36.7; O2SAT 98
[2018-05-27 05:47] LABS: Absolute Lymphocyte Count 1.79 X10^3/ul (0.83-4.51); Absolute Neutrophil Count 4.9 X10^3/uL (2.0-7.7); Basophil# 0.02 X10^3/uL; Basophil% 0.3 % (0-1); Eosinophil# 0.22 X10^3/uL; Eosinophils% 2.9 % (0-5); Hematocrit 39.3 % (37-47); Hemoglobin 12.7 g/dl (12.0-15.0); Lymphocyte # 1.79 X10^3/ul (4.0); Lymphocyte % 23.6 % (19-41); Mean Corp Hgb Conc 32.3 g/gl (32-36); Mean Corpuscular Hgb 30.4 pg (27.0-32.0); Mean Platelet Vol. 8.6 fl (6.2-12.0); Monocyte# 0.67 X10^3/uL; Monocyte% 8.8 % (0-10); Neutrophil # 4.87 X10^3/uL (2.7-7.7); Neutrophil % 64.3 % (47-70); Platelet Count 288 K/mm3 (150-450); RBC Distribution Width CV 12.2 % (11.6-14.6); RBC Distribution Width SD 41.1 fl (35.1-43.9); Red Blood Count 4.18 M/mm3 (4.2-5.4); White Blood Count 7.6 K/mm3 (4.4-11.0)
[2018-05-27 05:51] LABS: POSITIVE COUNT NO; POSITIVE DIFFERENTIAL NO; POSITIVE MORPHOLOGY NO
[2018-05-27 06:03] LABS: Anion Gap 10 (5-15); BUN 13 mg/dL (7-18); BUN/Creat Ratio 16.1 RATIO (10-20); Calcium,Total 8.1 mg/dL (8.5-10.1); Chloride 106 mmol/L (98-107); Creatinine, Serum 0.81 mg/dL (0.55-1.02); EST Glomerular Filtration Rate 74 mL/min (>60); Est Glom Filt Rate - Afr Amer 90 mL/min (>60); Estimated Creatinine Clearance 51.93 ml/min; Glucose 121 mg/dL (74-106); Potassium 4.2 mmol/L (3.5-5.1); Sodium Level 140 mmol/L (136-145)
--- NOTE | 2018-05-27 06:57 | PCM.CONS.GEN ---
Reason for Consult Date of Consultation: 05/27/18 Reason for Consultation: Right ankle fracture History of Present Illness: The patient is a 73 year old diabetic F that was consulted to podiatry after being admitted yesterday evening through the ER for right bimalleolar ankle fracture. Patient has a history of neuropathy as well as other comorbidities. She says she was walking down her stairs outside of her house when she slipped on the ice and felt her ankle twist under her. She says when she looked she could see her skin slightly bulging out. Patient underwent closed reduction with application of posterior splint in the ER. She continues to deny any pain due to her neuropathy. She currently denies any feelings of nausea, vomiting, fever, or chills. Dr. Arias is planning to take this patient to surgery. This patient is also known to Dr. Arias as he has previously performed left HAV surgery and treating her distal left third toe. Past Medical History Past Medical History (Chronic Problems): Chronic Problems HTN (hypertension) (Chronic) Anxiety and depression (Chronic) HLD (hyperlipidemia) (Chronic) Chronic constipation (Chronic) Osteoarthritis (Chronic) GERD (gastroesophageal reflux disease) (Chronic) Brain aneurysm (Chronic) Allergies codeine Adverse Reaction (Verified 05/26/18 12:55) Nausea fluoxetine HCl [From Prozac] Adverse Reaction (Verified 05/26/18 12:55) shivers morphine Adverse Reaction (Verified 05/26/18 12:55) Nausea Home Medications: Ambulatory Orders Medication Instructions Recorded Aromatic Cascara Fluid Extract 1,350 mg PO QHS 07/07/15 [Cascara [place]] Cholecalciferol (Vitamin D3) 5,000 unit PO DAILY 07/07/15 [Vitamin D3] Estradiol [Estrace (G)] 1 mg PO DAILY 07/07/15 Flaxseed Oil/[place] 3,6,9 [Sv 1 each PO BID 07/07/15 Flaxseed Oil 1,300 mg Sftgl] Folic Acid 0.4 mg PO DAILY@0800 07/07/15 Glucosam/Chondr-Msm6/Manganese 1 each PO DAILY 07/07/15 [Glucosamine-Chondroitin Sftgl] [place]ar[place] 2 tab PO BID 07/07/15 Magnesium 250 mg PO DAILY 07/07/15 Niacin 100 mg PO DAILY 07/07/15 Red Yeast Rice 600 mg PO QHS 07/07/15 Tumeric 1 tab PO BID 07/07/15 Vitamin A 10,000 unit PO DAILY 07/07/15 Vitamin E 1,000 unit PO DAILY 07/07/15 Omeprazole [Prilosec] 20 mg PO DAILY 08/11/17 Lactulose 10 gm PO BID PRN #1 bottle 08/18/17 Atenolol 25 mg PO BID 05/26/18 Biotin 1 mg PO DAILY 05/26/18 Nortriptyline HCl 75 mg PO BID 05/26/18 Reliv 1 tab PO 4X/DAY 05/26/18 Zolpidem Tartrate 10 mg PO QHS 05/26/18 Surgical History: - - 06/2015 first metatarsal osteotomy bunionectomy, second metatarsal osteotomy, repair second metatarsal phalangeal joint plantar plate, second toe arthrodesis, flexortenotomy of third and fourth toes, recent left third toe in office debridement approximate 5 weeks prior, tonsillectomy, history of tubal with left salpingo-oophorectomy and appendectomy, follow-up hysterectomy and right salpingo-oophorectomy, tummy tuck, bilateral vein stripping lower extremities, brain aneurysm History of Brain Aneurysm x 4 (s/p coiling, clipping x 2, wrapping). 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 , endometriosis Lives: Alone Smoking Status: Never smoker Tobacco Use: Non-smoker Alcohol: None Drugs: None - *Family History Maternal History Items: Hypertension Paternal History Items: Hypertension Review of Systems Constitutional: Denies: Chills, Fever, Weight Change Respiratory: Denies: Cough, Shortness of Breath Gastrointestinal: Denies: Abdominal Pain, Nausea, Vomiting Patient Problems: Active and Suspected Problems Closed right ankle fracture (Acute) - Physical Exam General: Alert, Oriented x3, Cooperative Extremities: No cyanosis - to toes of right foot, Capillary Refill Less than 3 Seconds - to all distal digits of right foot, No Calf Tenderness, - - pulses were not palpated due to posterior splint being in place Skin: - - Ankle not examined today as posterior splint was left in place Musculoskeletal: - - Patient denies any tenderness to her right ankle Neurological: - - epicritic sensation grossly absent to lower extremity Psych/Mental Status: Normal Affect, Appropriate Vital Signs Temp Pulse Resp BP Pulse Ox 98.1 F 73 16 130/70 H 98 05/27/18 04:23 05/27/18 04:23 05/27/18 04:23 05/27/18 04:23 05/27/18 04:23 Oxygen Flow Rate (L/min) [1 ( 4 Initial Baseline)] Oxygen Flow Rate (L/min) 4 Oxygen Delivery Method [2] Nasal Cannula Oxygen Delivery Method [1 ( Nasal Cannula Initial Baseline)] Oxygen Delivery Method Room Air Weight: 73.028 kg Body Mass Index (BMI) 28.5 Intake and Output for Last 24 Hours 05/25/18 05/26/18 05/27/18 23:59 23:59 23:59 Intake Total 1093 / 1093 Output Total 700 / 700 Balance 393 / 393 Laboratory Tests Past 24 Hrs 05/26/18 05/26/18 05/26/18 19:00 19:00 19:00 WBC 8.8 RBC 4.42 Hgb 13.4 Hct 41.8 MCV 94.6 MCH 30.3 MCHC 32.1 RDW 12.4 RDW Differential 42.4 Plt Count 276 MPV 8.5 Immature Gran % (Auto) 0.200 Neut % (Auto) 67.7 Lymph % (Auto) 22.9 [place] % (Auto) 7.2 Eos % (Auto) 1.8 Baso % (Auto) 0.2 Absolute Neuts (auto) 5.9 Absolute Lymphs (auto) 2.01 Total Counted Not Reportable PT 12.6 INR 0.9 APTT 26.9 Sodium 140 Potassium 3.9 Chloride 105 Carbon Dioxide 27.0 Anion Gap 8 BUN 15 Creatinine 0.90 Estim Creat Clear Calc 46.74 Est GFR (MDRD) Af Amer 79 Est GFR (MDRD) Non-Af 65 BUN/Creatinine Ratio 16.6 Glucose 146 H Calcium 8.2 L Magnesium 2.0 Total Bilirubin 0.30 AST 21 ALT 28 Alkaline Phosphatase 62 Total Protein 7.1 Albumin 3.2 Globulin 3.9 Albumin/Globulin Ratio 0.8 L Vit D 1,25-Dihydroxy 05/26/18 05/27/18 05/27/18 19:00 04:54 04:54 WBC 7.6 RBC 4.18 L Hgb 12.7 Hct 39.3 MCV 94.0 MCH 30.4 MCHC 32.3 RDW 12.2 RDW Differential 41.1 Plt Count 288 MPV 8.6 Immature Gran % (Auto) 0.100 Neut % (Auto) 64.3 Lymph % (Auto) 23.6 [place] % (Auto) 8.8 Eos % (Auto) 2.9 Baso % (Auto) 0.3 Absolute Neuts (auto) 4.9 Absolute Lymphs (auto) 1.79 Total Counted Not Reportable PT INR APTT Sodium 140 Potassium 4.2 Chloride 106 Carbon Dioxide 24.0 Anion Gap 10 BUN 13 Creatinine 0.81 Estim Creat Clear Calc 51.93 Est GFR (MDRD) Af Amer 90 Est GFR (MDRD) Non-Af 74 BUN/Creatinine Ratio 16.1 Glucose 121 H Calcium 8.1 L Magnesium Total Bilirubin AST ALT Alkaline Phosphatase Total Protein Albumin Globulin Albumin/Globulin Ratio Vit D 1,25-Dihydroxy Pending Assessment/Plan All Active Problems Closed right ankle fracture (Acute) Ankle fracture right, closed neuropathy Other comorbidities This patient was carefully examined and evaluated bedside this morning. Vital signs are currently stable and patient is not having any pain. Vit D level was ordered and result is pending. Patient resting comfortably in bed. Two more layers of cast padding followed by another JEANNIE were applied over the already existing posterior splint for added compression. Patient is to keep her heels offloaded and floated over the ends of pillows at all times while in bed. Orders already placed for this. Patient is to continue to be non weight bearing to the right foot/ankle. Pre-reduction x rays reviewed that showed fracture of the distal fibula and posterior tibia with lateral dislocation. Post-reduction x rays reveal sufficient reduction. Patient will be consented for open reduction and internal fixation of the right ankle. Procedure was discussed with the patient along with risks, benefits, and alternative options. Patient agrees to go ahead with surgery as planned. Procedure will be performed by Dr. Arias either or Friday of this week. Order for consent was placed for this procedure. Patients bandage to left 3rd toe left intact at this time. Podiatry will continue to follow this patient. Please contact if there are any questions.
--- NOTE | 2018-05-27 06:58 | PCM.PN.HOSP ---
Patient Problems: Active and Suspected Problems Closed right ankle fracture (Acute) Subjective: Patient with no acute events overnight per self and per nursing report. She has been aggressively elevating her right lower extremity and notes that the mild edema has not improved. She notes pain has been controlled. Discussed possibility of operative intervention on however to recent note placed per podiatry operating room only available on Friday05/29/18. Patient denies fevers, chills, nausea, emesis, abdominal pain, chest pain or dyspnea. Objective: Physical Examination: General: awake, alert, oriented x 3 and cooperative, seated upright in bed in no apparent distress. Skin: normal color, turgor, no icterus, cyanosis, right lower extremity with Ortho-Glass cast in place, decreased edema to the toes, able to move, recent LLE 3rd toe debridement with suturing in place and as well as postsurgical changes, edematous ankle mildly improved. HEENT: AT/NC, EOMI, PERRLA, MMM. Lungs: CTA bilaterally, moderate effort, mild decrease BL bases, no rales, ronchi or wheezing. Heart: Regular rate and rhythm; no gallop, rub audible. Abdomen: soft, NTTP, ND, normal BS. Extremities: no cyanosis, clubbing, see skin. Neurological: patient awake, alert, oriented x 3; cognitive function intact; pupils equally reactive to light and accomodation; cranial nerves II-XII grossly normal, moving all 4 extremities although limited right lower extremity given recent fracture with splinting complicated by left foot debility, strength accordingly moderately to severely globally decreased. Psychiatric: affect appears normal, no acute evidence of depressive or anxiety feelings. Vitals/I&O's: Vital Signs Temp Pulse Resp BP Pulse Ox 98.1 F 73 16 130/70 H 98 05/27/18 04:23 05/27/18 04:23 05/27/18 04:23 05/27/18 04:23 05/27/18 04:23 Oxygen Flow Rate (L/min) [1 ( 4 Initial Baseline)] Oxygen Flow Rate (L/min) 4 Oxygen Delivery Method [2] Nasal Cannula Oxygen Delivery Method [1 ( Nasal Cannula Initial Baseline)] Oxygen Delivery Method Room Air Weight: 161 lb Body Mass Index (BMI) 28.5 Intake and Output for Last 24 Hours 05/25/18 05/26/1805/27/19 23:59 23:59 23:59 Intake Total 1093 / 1093 Output Total 700 / 700 Balance 393 / 393 Laboratory Results 05/26/18 19:00: WBC 8.8, RBC 4.42, Hgb 13.4, Hct 41.8, MCV 94.6, MCH 30.3, MCHC 32.1, RDW 12.4, RDW Differential 42.4, Plt Count 276, MPV 8.5, Immature Gran % (Auto) 0.200, Neut % (Auto) 67.7, Lymph % (Auto) 22.9, [place] % (Auto) 7.2, Eos % (Auto) 1.8, Baso % (Auto) 0.2, Absolute Neuts (auto) 5.9, Absolute Lymphs (auto) 2.01, Total Counted Not Reportable 05/26/18 19:00: PT 12.6, INR 0.9, APTT 26.9 05/26/18 19:00: Sodium 140, Potassium 3.9, Chloride 105, Carbon Dioxide 27.0, Anion Gap 8, BUN 15, Creatinine 0.90, Estim Creat Clear Calc 46.74, Est GFR (MDRD) Af Amer 79, Est GFR (MDRD) Non-Af 65, BUN/Creatinine Ratio 16.6, Glucose 146 H, Calcium 8.2 L, Magnesium 2.0, Total Bilirubin 0.30, AST 21, ALT 28, Alkaline Phosphatase 62, Total Protein 7.1, Albumin 3.2, Globulin 3.9, Albumin/Globulin Ratio 0.8 L 05/26/18 19:00: Vit D 1,25-Dihydroxy Pending 05/27/18 04:54: WBC 7.6, RBC 4.18 L, Hgb 12.7, Hct 39.3, MCV 94.0, MCH 30.4, MCHC 32.3, RDW 12.2, RDW Differential 41.1, Plt Count 288, MPV 8.6, Immature Gran % (Auto) 0.100, Neut % (Auto) 64.3, Lymph % (Auto) 23.6, [place] % (Auto) 8.8, Eos % (Auto) 2.9, Baso % (Auto) 0.3, Absolute Neuts (auto) 4.9, Absolute Lymphs (auto) 1.79, Total Counted Not Reportable 05/27/18 04:54: Sodium 140, Potassium 4.2, Chloride 106, Carbon Dioxide 24.0, Anion Gap 10, BUN 13, Creatinine 0.81, Estim Creat Clear Calc 51.93, Est GFR (MDRD) Af Amer 90, Est GFR (MDRD) Non-Af 74, BUN/Creatinine Ratio 16.1, Glucose 121 H, Calcium 8.1 L Current Medications Acetaminophen (Tylenol) 650 mg PO Q6H PRN PRN PRN Reason: Non-cardiac pain (mod-severe) Hydrocodone Bitart/Acetaminophen (Turner 5mg-325mg) 1 - 2 tablet PO Q6H PRN PRN PRN Reason: Moderate-severe pain Al Hydroxide/Mg Hydroxide (Mylanta Ii) 30 ml PO Q6H PRN PRN PRN Reason: Gastric burning Atenolol (Tenormin (Beta King)) 25 mg PO BID [facility] Last Admin: 05/26/18 21:56 Dose: 25 mg Enoxaparin Sodium (Lovenox) 40 mg SC DAILY@1000 [facility] Estradiol (Estrace (G)) 1 mg PO DAILY@0800 [facility] Fentanyl Citrate (Sublimaze (100mcg Ampule)) 25 mcg IV Q3H PRN PRN PRN Reason: moderate to severe pain Hydralazine HCl (Apresoline Iv) 10 mg IV Q4H PRN PRN PRN Reason: SBP > 160 Lactulose (Chronulac, Cephulac) 10 gm PO BID PRN PRN Reason: Constipation Magnesium Hydroxide (Milk Of Magnesia) 30 ml PO DAILY PRN PRN PRN Reason: Constipation Nortriptyline HCl (Pamelor) 75 mg PO BID [facility] Last Admin: 05/26/18 21:56 Dose: 75 mg Ondansetron HCl (Zofran) 4 mg IV Q8H PRN PRN PRN Reason: NAUSEA/VOMITING Pantoprazole Sodium (Protonix) 20 mg PO DAILY [facility] Promethazine HCl (Phenergan) 6.25 mg IV Q4H PRN PRN PRN Reason: NAUSEA/VOMITING Sodium Chloride () 5 - 15 ml IV UD PRN PRN Reason: SALINE FLUSH Zolpidem Tartrate (Ambien (Generic)) 5 mg PO QHS [facility] Last Admin: 05/27/18 00:15 Dose: 5 mg Medical Necessity - Tobacco Use Smoking Status: Never smoker Tobacco Use: Non-smoker Assessment/Plan All Active Problems Closed right ankle fracture (Acute) The patient is a 73 y/o F w/ PMHx: HTN, HLD, GERD, OA, Anxiety and Depression who presents to the [facility] ED on 05/26/18 with history of slipping on the ice while walking, aggressively twisting her right ankle with notable debility, pain and edema following complicated by left post-op shoe in place with JEANNIE wrap secondary to prior hallux varus surgery by Dr. Arias in addition to recent left third toe small distal phalanx surgery with suture in place approximate 5 weeks prior who presents to the [facility] ED on 05/26/18 secondary to slipping on the ice with R ankle deformity, debility and pain following. (1) General debility, R Ankle, RLE pain s/p mechanical fall w/ comminuted distal fibular and posterior malleolar tibial fracture: Plain film noting comminuted distal fibular fracture and posterior malleolus fracture of the tibia with dislocation with ED procedural sedation and reduction with Ortho-Glass splint placement and post reduction films demonstrating appropriate reduction. Patient admitted to [facility], pending vitamin D level, NWB to RLS, continue L boot per Dr. Arias discretion, offloading ankle RLE, elevation RLE, monitor I/Os, frequent positioning, fall precautions, pain, anti-emetic regimen. PT/OT, CM consulted for discharge planning as likely will not be able to return home and patient notes amenable to SNF. Podiatry evaluation today, planned OR 05/29/18 secondary to OR availability. (2) Prior Remote L Foot Surgery w/ Recent 3rd Toe Distal Surgery: Podiatry consulted, noted 06/2015 first metatarsal osteotomy bunionectomy, second metatarsal osteotomy, repair second metatarsal phalangeal joint plantar plate, second toe arthrodesis, flexortenotomy of third and fourth toes with recent ~ 5 weeks prior in office treatment distal left third toe with sutures in place, continue boot parameters, dry dressing daily to the region, wound consulted, complicates presentation, PT/OT, CM consulted for discharge planning as likely will not be able to return home, amenable to SNF placement. (3) Hypertension: Continue home regimen including atenolol, PRN hydralazine. (4) Hyperlipidemia: Will hold patient home niacin and red yeast rice. (5) Chronic constipation: Continue home lactulose regimen as needed. (6) Anxiety and Depression: Continue home nortriptyline regimen. (7) History of Brain Aneurysm: Aneurysm x4, s/p coiling x 1, clipping x 2, wrapping x 1, notes ALL MRI compatible, follows annually with her neurosurgeon with imaging. (8) GERD: PPI. (9) DVT Prophylaxis: SCDs, lovenox w/ hold for OR per podiatry discretion. Code Visit Inpatient E&M: 08070 Subs Hosp L2
--- NOTE | 2018-05-27 07:52 | CT_ITS ---
STUDY: CT RIGHT ANKLE WITHOUT CONTRAST REASON FOR EXAM: Female, 73 years old. Right ankle fracture. 3-D reconstruction. RADIATION DOSAGE (If Supplied By Facility): CTDIvol = ( 15.35 ) mGy, DLP = ( 399.82 ) mGycm TECHNIQUE: Thin section transaxial imaging of the ankle was obtained, with sagittal and coronal reconstructed images. Individualized dose optimization techniques were used for this CT. COMPARISON: Comparison is made with prior radiograph of the right ankle dated May 26, 2018. FINDINGS: There is evidence of an oblique fracture of the distal fibula with extension into the lateral malleolus. There is minimal posterior displacement of the fracture fragment. There is also evidence of a nondisplaced avulsion type fracture along the posterior malleolus of the distal tibia. There is asymmetry of the ankle mortise with lateral displacement. Normal talus, calcaneus, navicular and cuboid tarsal bones. Normal subtalar, talonavicular and calcaneocuboid articulations. Normal navicular-cuneiform, cuneiform tarsal bones and intercuneiform articulations. Normal tarsometatarsal articulations and visualized metatarsi. Diffuse soft tissue swelling. CT/Extremity Lower without Contra IMPRESSION: Oblique fracture of the distal fibula with extension to the lateral malleolus with mild posterior displacement of the fracture fragment. Nondisplaced avulsion type fracture of the posterior malleolus of the distal tibia. Soft tissue swelling. Electronically Signed: Khanh Huston MD at 9:21 EST , Service support ,
[2018-05-27] MEDS: Estradiol 1 MG Tablet PO (07:57)
--- NOTE | 2018-05-27 07:58 | CT_ITS ---
STUDY: CT RIGHT ANKLE WITHOUT CONTRAST REASON FOR EXAM: Female, 73 years old. Right ankle fracture. 3-D reconstruction. RADIATION DOSAGE (If Supplied By Facility): CTDIvol = ( 15.35 ) mGy, DLP = ( 399.82 ) mGycm TECHNIQUE: Thin section transaxial imaging of the ankle was obtained, with sagittal and coronal reconstructed images. Individualized dose optimization techniques were used for this CT. COMPARISON: Comparison is made with prior radiograph of the right ankle dated May 26, 2018. FINDINGS: There is evidence of an oblique fracture of the distal fibula with extension into the lateral malleolus. There is minimal posterior displacement of the fracture fragment. There is also evidence of a nondisplaced avulsion type fracture along the posterior malleolus of the distal tibia. There is asymmetry of the ankle mortise with lateral displacement. Normal talus, calcaneus, navicular and cuboid tarsal bones. Normal subtalar, talonavicular and calcaneocuboid articulations. Normal navicular-cuneiform, cuneiform tarsal bones and intercuneiform articulations. Normal tarsometatarsal articulations and visualized metatarsi. Diffuse soft tissue swelling. CT/Coronals Sag Multi Obl 3-D Rec IMPRESSION: Oblique fracture of the distal fibula with extension to the lateral malleolus with mild posterior displacement of the fracture fragment. Nondisplaced avulsion type fracture of the posterior malleolus of the distal tibia. Soft tissue swelling. Electronically Signed: Khanh Huston MD at 9:21 EST , Service support ,
[2018-05-27 08:25] VITALS: O2SAT 97
--- NOTE | 2018-05-27 08:30 | NURSING ---
to ct scan and returned
[2018-05-27 08:31] VITALS: PULSE 80
[2018-05-27 09:27] LABS: Vitamin D,25 Hydroxy 47.4 ng/mL (29.95-100.01)
[2018-05-27 10:20] VITALS: BP 143/80; PULSE 79; RESP 18; TEMP 36.9; O2SAT 97
--- NOTE | 2018-05-27 10:51 | CASEMGMT ---
Addendum entered by Marylu Corey 05/27/18 11:02: SW placed a call to Evelyn in TCU and provided referral Original Note: Social Work Note Per Raymond CORNELIUS, pt was interested in referral being sent to [facility]. Physician states that pt is not scheduled to have surgery until tomorrow. SW met with pt to confirm discharge plans. SW introduced self and role at [facility]. Pt is alert and orientated. Pt states that she was told that her surgery is tomorrow or Friday. Pt states that she would like to go to [facility] TCU at discharge. SW informed pt that right now [facility] doesn't have any beds and that as of yesterday there was a waitlist. SW explained that this worker can put pt on list for TCU but doesn't know when a bed will become available. SW explained referral process and that pre-cert will need to be obtained. SW explained that this worker will meet with pt again after pt has surgery and once pt works with PT/OT to determine appropriate plan. SW explained that if pt does well with PT/OT after surgery, SNF may not be appropriate. Pt states that if [facility] unable to accept then her second choice would be [facility]. SW will continue to follow along to assist with appropriate discharge. Plan: Likely SNF pending acceptance and pre-cert Marylu Corey LEAD BUSINESS ANALYST, [employer]
[2018-05-27] MEDS: Enoxaparin 40 MG/0.4 ML Syringe SC (10:55)
[2018-05-27] MEDS: Atenolol 25 MG Tablet PO ×2 (10:56→20:57)
[2018-05-27] MEDS: Pantoprazole Sodium 20 MG Tablet PO (10:56)
--- NOTE | 2018-05-27 11:39 | NURSING ---
wound photo: Left 3rd Toe
--- NOTE | 2018-05-27 15:03 | CASEMGMT ---
LAURITA ZULUAGA NOTE: Reviewed FREEMAN form with pt. Pt provided with [facility] Are you a Hospital Inpatient or Outpatient information handout. Pt denies having questions. Form signed by patient, copy made and placed on chart, and original given to pt. Shannon BARROW RN CM
[2018-05-27 15:05] VITALS: BP 127/74; PULSE 78; RESP 18; TEMP 36.9; O2SAT 99
[2018-05-27] MEDS: Nortriptyline 25 MG Capsule 150 MG PO (20:56)
[2018-05-27 20:59] VITALS: BP 140/80; PULSE 80; RESP 16; TEMP 37.3; O2SAT 97
[2018-05-28] VITALS (7 sets, daily range): BP systolic 99–122; BP diastolic 58–72; PULSE 71–80; RESP 16–17; TEMP 36.5–37.1; O2SAT 94–99
--- NOTE | 2018-05-28 07:07 | PCM.PN.HOSP ---
Patient Problems: Active and Suspected Problems Closed right ankle fracture (Acute) Subjective: Patient with no acute events overnight per self and per nursing report. Patient has been very diligent about elevating her right lower extremity and the edema at least of her toes which are visualized in the Ortho-Glass splint have had reduced edema with pain controlled. Discussed plan for operative intervention ON 05/29/18 secondary to OR availability times and patient is amenable. Patient denies fevers, chills, nausea, emesis, abdominal pain, chest pain or dyspnea. Objective: Physical Examination: General: awake, alert, oriented x 3 and cooperative, seated upright in bed in no apparent distress. Skin: normal color, turgor, no icterus, cyanosis, right lower extremity with Ortho-Glass cast in place, decreased edema to the toes, able to move, recent LLE 3rd toe debridement with suturing in place and as well as postsurgical changes, edematous ankle improving. HEENT: AT/NC, EOMI, PERRLA, MMM. Lungs: CTA bilaterally, moderate effort, mild decrease BL bases, no rales, ronchi or wheezing. Heart: Regular rate and rhythm; no gallop, rub audible. Abdomen: soft, NTTP, ND, normal BS. Extremities: no cyanosis, clubbing, see skin. Neurological: patient awake, alert, oriented x 3; cognitive function intact; pupils equally reactive to light and accomodation; cranial nerves II-XII grossly normal, moving all 4 extremities although limited right lower extremity given recent fracture with splinting complicated by left foot debility, strength accordingly moderately to severely globally decreased. Psychiatric: affect appears normal, no acute evidence of depressive or anxiety feelings. Vitals/I&O's: Vital Signs Temp Pulse Resp BP Pulse Ox 98.4 F 73 17 122/72 H 95 05/28/18 03:12 05/28/18 03:12 05/28/18 03:12 05/28/18 03:12 05/28/18 03:12 Oxygen Flow Rate (L/min) [1 ( 4 Initial Baseline)] Oxygen Flow Rate (L/min) 4 Oxygen Delivery Method [2] Nasal Cannula Oxygen Delivery Method [1 ( Nasal Cannula Initial Baseline)] Oxygen Delivery Method Room Air Weight: 161 lb Body Mass Index (BMI) 28.5 Intake and Output for Last 24 Hours 0105/27/18 05/28/18 23:59 23:59 23:59 Intake Total 1093 / 1093 Output Total 700 / 700 Balance 393 / 393 Laboratory Results 05/26/18 19:00: Vit D 1,25-Dihydroxy Cancelled 05/26/18 19:00: Vitamin D 25-Hydroxy 47.4 Current Medications Acetaminophen (Tylenol) 650 mg PO Q6H PRN PRN PRN Reason: Non-cardiac pain (mod-severe) Hydrocodone Bitart/Acetaminophen ([place] 5mg-325mg) 1 - 2 tablet PO Q6H PRN PRN PRN Reason: Moderate-severe pain Al Hydroxide/Mg Hydroxide (Mylanta Ii) 30 ml PO Q6H PRN PRN PRN Reason: Gastric burning Atenolol (Tenormin (Beta King)) 25 mg PO BID [facility] Last Admin: 05/27/18 20:57 Dose: 25 mg Enoxaparin Sodium (Lovenox) 40 mg SC DAILY@1000 [facility] Last Admin: 05/27/18 10:55 Dose: 40 mg Estradiol (Estrace (G)) 1 mg PO DAILY@0800 [facility] Last Admin: 05/27/18 07:57 Dose: 1 mg Fentanyl Citrate (Sublimaze (100mcg Ampule)) 25 mcg IV Q3H PRN PRN PRN Reason: moderate to severe pain Hydralazine HCl (Apresoline Iv) 10 mg IV Q4H PRN PRN PRN Reason: SBP > 160 Lactulose (Chronulac, Cephulac) 10 gm PO BID PRN PRN Reason: Constipation Magnesium Hydroxide (Milk Of Magnesia) 30 ml PO DAILY PRN PRN PRN Reason: Constipation Nortriptyline HCl (Pamelor) 150 mg PO QHS [facility] Last Admin: 05/27/18 20:56 Dose: 150 mg Ondansetron HCl (Zofran) 4 mg IV Q8H PRN PRN PRN Reason: NAUSEA/VOMITING Pantoprazole Sodium (Protonix) 20 mg PO DAILY [facility] Last Admin: 05/27/18 10:56 Dose: 20 mg Promethazine HCl (Phenergan) 6.25 mg IV Q4H PRN PRN PRN Reason: NAUSEA/VOMITING Sodium Chloride () 5 - 15 ml IV UD PRN PRN Reason: SALINE FLUSH Zolpidem Tartrate (Ambien (Generic)) 5 mg PO QHS [facility] Last Admin: 05/27/18 20:56 Dose: 5 mg Medical Necessity - Tobacco Use Smoking Status: Never smoker Tobacco Use: Non-smoker Assessment/Plan All Active Problems Closed right ankle fracture (Acute) The patient is a 73 y/o F w/ PMHx: HTN, HLD, GERD, OA, Anxiety and Depression who presents to the [facility] ED on 05/26/18 with history of slipping on the ice while walking, aggressively twisting her right ankle with notable debility, pain and edema following complicated by left post-op shoe in place with JEANNIE wrap secondary to prior hallux varus surgery by Dr. Arias in addition to recent left third toe small distal phalanx surgery with suture in place approximate 5 weeks prior who presents to the [facility] ED on 05/26/18 secondary to slipping on the ice with R ankle deformity, debility and pain following. (1) General debility, R Ankle, RLE pain s/p mechanical fall w/ comminuted distal fibular and posterior malleolar tibial fracture: Plain film noting comminuted distal fibular fracture and posterior malleolus fracture of the tibia with dislocation with ED procedural sedation and reduction with Ortho-Glass splint placement and post reduction films demonstrating appropriate reduction. Patient admitted to MS, pending vitamin D level, NWB to RLS, continue L boot per Dr. Arias discretion, offloading ankle RLE, elevation RLE, monitor I/Os, frequent positioning, fall precautions, pain, anti-emetic regimen. PT/OT, CM consulted for discharge planning as likely will not be able to return home and patient notes amenable to SNF. Planned OR 05/29/18 secondary to OR availability. Patient with pain controlled, continue aggressive elevation which she has been doing with notable improvement of edema. Plan NPO after midnight, add gentle IVFs once NPO, hold AM 05/29/18 lovenox. (2) Prior Remote L Foot Surgery w/ Recent 3rd Toe Distal Surgery: Podiatry consulted, noted 06/2015 first metatarsal osteotomy bunionectomy, second metatarsal osteotomy, repair second metatarsal phalangeal joint plantar plate, second toe arthrodesis, flexortenotomy of third and fourth toes with recent ~ 5 weeks prior in office treatment distal left third toe with sutures in place, continue boot parameters, dry dressing daily to the region, wound consulted, complicates presentation, PT/OT, CM consulted for discharge planning as likely will not be able to return home, amenable to SNF placement. (3) Hypertension: Continue home regimen including atenolol, PRN hydralazine. (4) Hyperlipidemia: Will hold patient home niacin and red yeast rice. (5) Chronic constipation: Continue home lactulose regimen as needed. (6) Anxiety and Depression: Continue home nortriptyline regimen. (7) History of Brain Aneurysm: Aneurysm x4, s/p coiling x 1, clipping x 2, wrapping x 1, notes ALL MRI compatible, follows annually with her neurosurgeon with imaging. (8) GERD: PPI. (9) DVT Prophylaxis: SCDs, lovenox w/ hold for OR per podiatry discretion. Code Visit Inpatient E&M: 13257 Subs Hosp L2
[2018-05-28] MEDS: Estradiol 1 MG Tablet PO (08:02)
[2018-05-28] MEDS: Atenolol 25 MG Tablet PO ×2 (08:02→21:35)
[2018-05-28] MEDS: Pantoprazole Sodium 20 MG Tablet PO (08:02)
[2018-05-28] MEDS: Enoxaparin 40 MG/0.4 ML Syringe SC (08:02)
--- NOTE | 2018-05-28 09:51 | CASEMGMT ---
Social Work Note Pt is still on [facility] TCU waiting list. Per previous conversation with pt, pt's second choice if TCU is unable to accept pt's second choice is [facility]. ADRYAN placed a call to Amanda at [facility] and informed her that pt is not scheduled to have surgery until tomorrow (Friday) but asked if pre-cert could be started before pt's surgery so pt is not at [facility] over the weekend. ADRYAN faxed referral to [facility]. ADRYAN waiting to hear back from Amanda at [facility]. Plan: W pending acceptance. ADRYAN waiting to hear from Amanda at [facility] if pre-cert can be submitted before surgery or if it has to be submitted after surgery. Marylu Corey AIR PUMPER, RESTAURANT HOST/HOSTESS
--- NOTE | 2018-05-28 14:26 | CASEMGMT ---
Addendum entered by Marylu Corey 05/28/18 15:51: ADRYAN faxed PT note to [facility] Original Note: Social Work Note ADRYAN received message from Amanda at [facility] stating she is able to accept pt and questioned whether she should start pre-cert today or pre-cert tomorrow. Amanda states she is hesitant to start pre-cert today because [employer] may only approve for pt to go to [facility] Friday or Friday. ADRYAN discussed case with Zaid Calix, social sciences department chair, who states Amanda should be able to start pre-cert today and hopefully it would be good for the weekend or pt may be ready for discharge Friday. ADRYAN placed a call back to Amanda at [facility] and left her a message asking if she would be able to submit for pre-cert today before she leaves in hopes that she receives pre-cert tomorrow and it is good for the weekend. ADRYAN informed Amanda that pt could medically be ready for discharge Friday. ADRYAN received call back from Amanda who states she is able to submit for pre-cert and would like PT/OT notes from today. ADRYAN reviewed patient reports. OT and Wound Nurse notes are available from today but not PT. ADRYAN faxed updated OT and Wound Nurse notes from today and informed Amanda this worker will fax updated PT notes from today when available. ADRYAN placed a call to Mary Ellen with [facility]. Mary Ellen states pt is third on waitlist and there are currently no beds on TCU. ADRYAN in to update pt of this. ADRYAN informed pt that this worker did send a referral to [facility] as this was pt's second choice and they are able to accept pending pre-cert. Pt states understanding and agreeable to [facility]. Plan: [facility] pending pre-cert Marylu Corey ALL TERRAIN VEHICLE RACER, BURR MACHINE OPERATOR
[2018-05-28] MEDS: Nortriptyline 25 MG Capsule 150 MG PO (21:34)
[2018-05-28] MEDS: Zolpidem Tartrate 5 MG Tablet PO (21:34)
--- NOTE | 2018-05-28 22:44 | PN_ITS ---
Patient Problems: Active and Suspected Problems Closed right ankle fracture (Acute) Subjective: Patient scheduled for ORIF right ankle fracture 05/29/18. Patient has splint to right lower extremity. Vitamin D has been checked and is within normal limits. - Physical Exam Vital Signs Temp Pulse Resp BP Pulse Ox 98.1 F 71 16 114/65 97 05/28/18 14:42 05/28/18 14:42 05/28/18 14:42 05/28/18 14:42 05/28/18 14:42 Oxygen Flow Rate (L/min) [1 ( 4 Initial Baseline)] Oxygen Flow Rate (L/min) 4 Oxygen Delivery Method [2] Nasal Cannula Oxygen Delivery Method [1 ( Nasal Cannula Initial Baseline)] Oxygen Delivery Method Room Air Weight: 73.028 kg Body Mass Index (BMI) 28.5 Intake and Output for Last 24 Hours 05/26/18 05/27/18 05/28/18 23:59 23:59 23:59 Intake Total 1093 / 1093 Output Total 700 / 700 Balance 393 / 393 Medical Necessity - Tobacco Use Smoking Status: Never smoker Tobacco Use: Non-smoker Assessment/Plan All Active Problems Closed right ankle fracture (Acute) Right ankle trimalleolus ankle fracture Left 3rd toe ulceration Peripheral neuropathy lower extremity bilateral Patient scheduled for ORIF right ankle fracture on 05/29/18. Reviewed with jamie schmitt, reviewed procedure, rationale of procedure, possible benefits vs risks, goals, expectations and typical healing time. This was discussed with her and she agreed with plan. All of her questions were answered. Plan is for patient to recover at nursing facility post operatively. NPO after midnight. No weightbearing right foot, keep right foot elevated, and heel offloaded. Left 3rd toe ulceration - sutures well coapted. Continue with local wound care - adaptic and gauze dressing - change daily.
[2018-05-29] VITALS (12 sets, daily range): BP systolic 101–146; BP diastolic 62–102; PULSE 67–90; RESP 16–18; TEMP 36.4–37.7; O2SAT 92–99; BMI 28.5
[2018-05-29] MEDS: 0.9% Normal Saline 1,000 ML 100 ML IV ×2 (00:08→08:42)
[2018-05-29 05:59] LABS: Absolute Lymphocyte Count 1.95 X10^3/ul (0.83-4.51); Absolute Neutrophil Count 4.1 X10^3/uL (2.0-7.7); Basophil# 0.01 X10^3/uL; Basophil% 0.1 % (0-1); Eosinophil# 0.28 X10^3/uL; Hematocrit 38.1 % (37-47); Hemoglobin 12.4 g/dl (12.0-15.0); Lymphocyte # 1.95 X10^3/ul (4.0); Lymphocyte % 27.8 % (19-41); Mean Corp Hgb Conc 32.5 g/gl (32-36); Mean Corpuscular Hgb 30.6 pg (27.0-32.0); Mean Corpuscular Volume 94.1 fL (81-99); Mean Platelet Vol. 8.6 fl (6.2-12.0); Monocyte# 0.69 X10^3/uL; Monocyte% 9.8 % (0-10); Neutrophil # 4.06 X10^3/uL (2.7-7.7); Neutrophil % 57.9 % (47-70); Platelet Count 278 K/mm3 (150-450); RBC Distribution Width CV 12.4 % (11.6-14.6); RBC Distribution Width SD 41.7 fl (35.1-43.9); Red Blood Count 4.05 M/mm3 (4.2-5.4)
[2018-05-29 06:02] LABS: Anion Gap 11 (5-15); BUN 17 mg/dL (7-18); BUN/Creat Ratio 21.7 RATIO (10-20); Calcium,Total 8.2 mg/dL (8.5-10.1); Chloride 106 mmol/L (98-107); Creatinine, Serum 0.78 mg/dL (0.55-1.02); EST Glomerular Filtration Rate 77 mL/min (>60); Est Glom Filt Rate - Afr Amer 93 mL/min (>60); Estimated Creatinine Clearance 42.07 ml/min; Glucose 118 mg/dL (74-106); Sodium Level 141 mmol/L (136-145)
[2018-05-29 06:03] LABS: POSITIVE COUNT NO; POSITIVE DIFFERENTIAL NO; POSITIVE MORPHOLOGY NO
--- NOTE | 2018-05-29 06:48 | PN_ITS ---
Patient Problems: Active and Suspected Problems Closed right ankle fracture (Acute) Subjective: Patient with no acute events overnight per self and per nursing report. Plan to transition to the operative room shortly for operative intervention this morning at approximately 11 AM. Patient remains amenable to transition to fdc facility the day following which has been arranged and set up. Did discuss these plans with podiatry and they are amenable to this transition as long as there are no perioperative complications. Patient denies fevers, chills, nausea, emesis, abdominal pain, chest pain or dyspnea. Objective: Physical Examination: General: awake, alert, oriented x 3 and cooperative, seated upright in bed in no apparent distress. Skin: normal color, turgor, no icterus, cyanosis, right lower extremity with Ortho-Glass cast in place, decreased edema to the toes, able to move, recent LLE 3rd toe debridement with suturing in place and as well as postsurgical changes, edematous ankle improving. HEENT: AT/NC, EOMI, PERRLA, MMM. Lungs: CTA bilaterally, moderate effort, mild decrease BL bases, no rales, ronchi or wheezing. Heart: Regular rate and rhythm; no gallop, rub audible. Abdomen: soft, NTTP, ND, normal BS. Extremities: no cyanosis, clubbing, see skin. Neurological: patient awake, alert, oriented x 3; cognitive function intact; pupils equally reactive to light and accomodation; cranial nerves II-XII grossly normal, moving all 4 extremities although limited right lower extremity given recent fracture with splinting complicated by left foot debility, strength accordingly moderately to severely globally decreased. Psychiatric: affect appears normal, no acute evidence of depressive or anxiety feelings. Vitals/I&O's: Vital Signs Temp Pulse Resp BP Pulse Ox 98.2 F 67 16 114/65 96 05/29/18 03:00 05/29/18 03:00 05/29/18 03:00 05/29/18 03:00 05/29/18 03:00 Oxygen Flow Rate (L/min) [1 ( 4 Initial Baseline)] Oxygen Flow Rate (L/min) 4 Oxygen Delivery Method [2] Nasal Cannula Oxygen Delivery Method [1 ( Nasal Cannula Initial Baseline)] Oxygen Delivery Method Room Air Weight: 161 lb Body Mass Index (BMI) 28.5 Intake and Output for Last 24 Hours 01/05/28/18 05/29/18 23:59 23:59 23:59 Intake Total 1093 / 1093 Output Total 700 / 700 Balance 393 / 393 Laboratory Results 05/29/18 05:14: WBC 7.0, RBC 4.05 L, Hgb 12.4, Hct 38.1, MCV 94.1, MCH 30.6, MCHC 32.5, RDW 12.4, RDW Differential 41.7, Plt Count 278, MPV 8.6, Immature Gran % (Auto) 0.400, Neut % (Auto) 57.9, Lymph % (Auto) 27.8, Lander % (Auto) 9.8, Eos % (Auto) 4.0, Baso % (Auto) 0.1, Absolute Neuts (auto) 4.1, Absolute Lymphs (auto) 1.95, Total Counted Not Reportable 05/29/18 05:14: Sodium 141, Potassium 4.0, Chloride 106, Carbon Dioxide 24.0, Anion Gap 11, BUN 17, Creatinine 0.78, Estim Creat Clear Calc 42.07, Est GFR (MDRD) Af Amer 93, Est GFR (MDRD) Non-Af 77, BUN/Creatinine Ratio 21.7 H, Glucose 118 H, Calcium 8.2 L Current Medications Acetaminophen (Tylenol) 650 mg PO Q6H PRN PRN PRN Reason: Non-cardiac pain (mod-severe) Hydrocodone Bitart/Acetaminophen ([place] 5mg-325mg) 1 - 2 tablet PO Q6H PRN PRN PRN Reason: Moderate-severe pain Al Hydroxide/Mg Hydroxide (Mylanta Ii) 30 ml PO Q6H PRN PRN PRN Reason: Gastric burning Atenolol (Tenormin (Beta King)) 25 mg PO BID [facility] Last Admin: 05/28/18 21:35 Dose: 25 mg Enoxaparin Sodium (Lovenox) 40 mg SC DAILY@1000 [facility] Last Admin: 05/28/18 12:26 Dose: Not Given Estradiol (Estrace (G)) 1 mg PO DAILY@0800 [facility] Last Admin: 05/28/18 08:02 Dose: 1 mg Fentanyl Citrate (Sublimaze (100mcg Ampule)) 25 mcg IV Q3H PRN PRN PRN Reason: moderate to severe pain Hydralazine HCl (Apresoline Iv) 10 mg IV Q4H PRN PRN PRN Reason: SBP > 160 Sodium Chloride () 1,000 mls @ 100 mls/hr IV .Q10H [facility] Last Admin: 05/29/18 00:08 Dose: 100 mls/hr Lactulose (Chronulac, Cephulac) 10 gm PO BID PRN PRN Reason: Constipation Magnesium Hydroxide (Milk Of Magnesia) 30 ml PO DAILY PRN PRN PRN Reason: Constipation Nortriptyline HCl (Pamelor) 150 mg PO QHS [facility] Last Admin: 05/28/18 21:34 Dose: 150 mg Ondansetron HCl (Zofran) 4 mg IV Q8H PRN PRN PRN Reason: NAUSEA/VOMITING Pantoprazole Sodium (Protonix) 20 mg PO DAILY [facility] Last Admin: 05/28/18 08:02 Dose: 20 mg Promethazine HCl (Phenergan) 6.25 mg IV Q4H PRN PRN PRN Reason: NAUSEA/VOMITING Sodium Chloride () 5 - 15 ml IV UD PRN PRN Reason: SALINE FLUSH Zolpidem Tartrate (Ambien (Generic)) 5 mg PO QHS [facility] Last Admin: 05/28/18 21:34 Dose: 5 mg Medical Necessity - Tobacco Use Smoking Status: Never smoker Tobacco Use: Non-smoker Assessment/Plan All Active Problems Closed right ankle fracture (Acute) The patient is a 73 y/o F w/ PMHx: HTN, HLD, GERD, OA, Anxiety and Depression who presents to the [facility] ED on 05/26/18 with history of slipping on the ice while walking, aggressively twisting her right ankle with notable debility, pain and edema following complicated by left post-op shoe in place with JEANNIE wrap secondary to prior hallux varus surgery by Dr. Arias in addition to recent left third toe small distal phalanx surgery with suture in place approximate 5 weeks prior who presents to the [facility] ED on 05/26/18 secondary to slipping on the ice with R ankle deformity, debility and pain following. (1) General debility, R Ankle, RLE pain s/p mechanical fall w/ comminuted distal fibular and posterior malleolar tibial fracture: Plain film noting comminuted distal fibular fracture and posterior malleolus fracture of the tibia with dislocation with ED procedural sedation and reduction with Ortho-Glass splint placement and post reduction films demonstrating appropriate reduction. Patient admitted to MS, pending vitamin D level, NWB to RLS, continue L boot per Dr. Arias discretion, offloading ankle RLE, elevation RLE, monitor I/Os, frequent positioning, fall precautions, pain, anti-emetic regimen. PT/OT, CM consulted for discharge planning. OR 05/29/18 secondary to OR availability. Patient with pain controlled, continue aggressive elevation which she has been doing with notable improvement of edema. Following OR if no negrita-operative events, discussed SNF transition w/ Podiatry and amenable to transition 05/30/18 with co ntinuation of nonweightbearing to the right lower extremity, elevation of right lower extremity, plan follow-up with podiatry within 1 week, dressing to remain clean and dry and intact to be removed at follow-up only with podiatry as well as continuation of DVT prophylaxis until discontinuation per podiatry. (2) Prior Remote L Foot Surgery w/ Recent 3rd Toe Distal Surgery: Podiatry consulted, noted 06/2015 first metatarsal osteotomy bunionectomy, second metatarsal osteotomy, repair second metatarsal phalangeal joint plantar plate, second toe arthrodesis, flexortenotomy of third and fourth toes with recent ~ 5 weeks prior in office treatment distal left third toe with sutures in place, continue boot parameters, dry dressing daily to the region, wound consulted, PT/OT, CM consulted for discharge planning w/ planned 05/30/18 SNF placement. (3) Hypertension: Continue home regimen including atenolol, PRN hydralazine. (4) Hyperlipidemia: Will hold patient home niacin and red yeast rice. (5) Chronic constipation: Continue home lactulose regimen as needed. (6) Anxiety and Depression: Continue home nortriptyline regimen. (7) History of Brain Aneurysm: Aneurysm x4, s/p coiling x 1, clipping x 2, wrapping x 1, notes ALL MRI compatible, follows annually with her neurosurgeon with imaging. (8) GERD: PPI. (9) DVT Prophylaxis: SCDs, lovenox to be restarted 05/30/18. Code Visit Inpatient E&M: 14259 Subs Hosp L2
[2018-05-29] MEDS: Atenolol 25 MG Tablet PO ×2 (08:35→20:51)
--- NOTE | 2018-05-29 09:34 | CASEMGMT ---
Social Work Note SW received message from Amanda at [facility] stating she received authorization for pt and authorization is only good until Friday. Pt it scheduled to have surgery today. Plan: Discharge to [facility] today or Friday Marylu SEQUIVEL, CHRISTIAN EDUCATION DIRECTOR
--- NOTE | 2018-05-29 09:46 | PCM.TXEXTCAR ---
- Diet 05/28/18 23:55 Diet: Cardiac diet Is pt able to select menu?: Yes - Routine Orders/Code Status Enema Type: Fleetz Enema Frequency: Daily PRN Suppository Type: Dulcolax 10mg Suppository Frequency: Daily PRN Keep PO Greater than or Equal to (%): 92 Routine Lab Work: - - Repeat CBC, BMP within 1 week. Code Status: Full Code - Wound(s) left knee Wound Type: scratches from fall prior to admit left foot 3rd toe Wound Type: Surgical Incision Dressing Change: adaptic Right ankle Wound Type: Surgical Incision Dressing Change: Keep surgical dressing and splint in place. Will be taken down at Podiatry follow-up. Keep clean and dry. - Suggestions for Active Care Change Position every (hours): 2 Hours to sit in a chair: 6 Times a day to sit in chair: 3 - Therapies Weight Bearing: Non weight bearing - Non-weight bearing to the RLE. May weight bear on the LLE with podiatric boot in place. Extremity Affected:: Right Lower Physical Therapy: Eval and Treat Occupational Therapy: Eval and Treat - Problem/Diagnosis (1) Closed right ankle fracture Status: Acute Current Visit: Yes (2) HTN (hypertension) Status: Chronic Current Visit: Yes (3) Anxiety and depression Status: Chronic Current Visit: Yes (4) HLD (hyperlipidemia) Status: Chronic Current Visit: Yes (5) Chronic constipation Status: Chronic Current Visit: Yes (6) Osteoarthritis Status: Chronic Current Visit: Yes (7) GERD (gastroesophageal reflux disease) Status: Chronic Current Visit: Yes (8) Brain aneurysm Status: Chronic Current Visit: Yes - Allergies/Procedures Done in Hospital Allergies/Adverse Reactions: Allergies codeine Adverse Reaction (Verified 05/26/18 12:55) Nausea fluoxetine HCl [From Prozac] Adverse Reaction (Verified 05/26/18 12:55) shivers morphine Adverse Reaction (Verified 05/26/18 12:55) Nausea Procedures: - - 05/29/18 Repair comminuted distal fibular and posterior malleolar tibial fracture per Dr. Arias. - Type of Care/Length of Stay Estimated LOS: Convalescent Care Less Than 30 days Type of Care Needed: Skilled Rehab Potential: Good Prognosis: Good - Additional Orders/Day of Discharge Additional Orders: (1) Fall precautions. (2) Maintain the weight bearing parameters as noted with only LLE weight bearing with podiatric boot in place w/ assistive devices as needed. (3) Strict RLE elevation when in bed and seated as noted. (4) Continue the DVT lovenox prophylaxis until discontinued per Podiatry. (5) Keep RLE dressing, splint clean and dry, in place until evaluation per Podiatry at follow-up. H&P will serve as current which was dated: 05/26/18 Day of Discharge: 05/30/18 - Follow Up Care Primary Care Physician: Radha Chang MD [Primary Care Provider] - Please follow up with your Primary Care Physician in: Follow-up within 3-5 days hosp d/c and within 1-2 days SNF d/c. Please Follow Up With: Ruiz Arias DPM When: Follow-up 1 week. Earlier if concerns. Call with questions.
--- NOTE | 2018-05-29 10:07 | NURSING ---
pt left for surgery. family at bedside.
--- NOTE | 2018-05-29 10:15 | CASEMGMT ---
Social Work Note RN CM updated this worker that per physician podiatry is ok with pt discharging tomorrow to SNF. SW placed a call to Amanda at [facility] and left her a message informing her of this. Amaris SALDAÑA completed PAS/RR in [facility]. Original placed on pt's chart with transportation form. Green sheet on chart. Plan: Pt to discharge to [facility] tomorrow skilled Marylu Corey VOLUNTEER SERVICES COORDINATOR, OSHA INSPECTOR
--- NOTE | 2018-05-29 11:21 | RAD_ITS ---
STUDY: X-RAY - RIGHT ANKLE REASON FOR EXAM: Female, 73 years old. ORIF right ankle. TECHNIQUE: 6 view(s) of the ankle. COMPARISON: None. FINDINGS: 6 images were obtained intraoperatively during internal fixation. Lateral plate and screws are identified. Tibia and fibula are in anatomic alignment. RAD/Ankle min 3 Views IMPRESSION: Images obtained for hardware localization. Electronically Signed: Birgit Crawford MD at 23:09 EST Tel , Service support ,
[2018-05-29] MEDS: Cefazolin 2 GM in 0.9% Normal Saline 100 ML IV (11:46)
--- NOTE | 2018-05-29 12:46 | PCA ---
PT OFF FLOOR
--- NOTE | 2018-05-29 14:34 | PCA ---
PT OFF FLOOR
[2018-05-29] MEDS: Bupivacaine Mpf 0.5% 30 ML VIAL (14:55)
--- NOTE | 2018-05-29 15:37 | RAD_ITS ---
STUDY: X-RAY - RIGHT ANKLE REASON FOR EXAM: Female, 73 years old. Postoperative. TECHNIQUE: 3 view(s) of the ankle. COMPARISON: None. FINDINGS: Patient is status post ORIF of the right ankle. Lateral plate and screws fix the fibula and distal tibia. Alignment is anatomic. Posterior tibial fracture fragment is identified in anatomic alignment. RAD/Ankle min 3 Views IMPRESSION: Anatomic alignment status post ORIF of the right ankle. Electronically Signed: Birgit Crawford MD at 23:48 EST Tel , Service support ,
--- NOTE | 2018-05-29 19:22 | PCM.OPRPT ---
Report of Operation Date of Procedure: 05/29/18 Pre-Operative Diagnosis: Trimalleolus Equivalent Ankle Fracture, Right Post-Operative Diagnosis: Same Surgery/Procedure Performed:: Open Reduction Internal Fixation of Trimalleolus Equivalent Ankle Fracture. attendant child activity: yes - Dr. Edward Huston Type of Anesthesia:: General Specimen's removed: None Estimated Blood Loss (mL): 50mL Description of Procedure: Indications: This is a 73 year old female who sustained a right trimalleolus equivalent ankle fracture this week, she slipped on the ice. He was seen in the ER, and was closed reduced. A splint was applied. She was admitted due to fall risk as she lives alone. Due to the severity of the ankle fracture she elected to proceed forward with open reduction internal fixation. This was discussed with her in great detail. The rationale of the procedure was reviewed with her. The goals and the expectations were discussed and reviewed with her. The possible benefits vs risks and all potential complications were discussed and reviewed with the patient. The patient expressed understanding and agreement, and elected to proceed forward with the procedure. All of her questions were answered. The consent forms were reviewed with her and he freely signed them. No guarantees were given nor implied. Operative Procedure: The patient was brought back to the operating room and was placed on the operating room table in the supine position. She was carefully secured to the operating room table with a safety belt around her waist. The patient received 2 grams of IV cefazolin for antibiotic prophylaxis. The patient received general anesthesia per the anesthesia team. A well padded pneumatic tourniquet was applied around her right thigh. The right lower extremity was scrubbed, prepped, and draped in the usual aseptic fashion. The right foot/ankle was elevated for 3 minutes and the right thigh pneumatic tourniquet was inflated to 350mmHg. The ankle was noted to be very unstable. There were no fracture blisters, but the skin to the medial anterior ankle was slightly dusky due to pressure from the ankle fracture. Using a 15 blade, a skin incision was made overlying the lateral malleolus. Careful blunt dissection was completed down to the periosteum of the lateral malleolus and distal fibula, which was incised and partially reflected exposing the lateral malleolus fracture. The fibula was brought out to length and was rotated back to normal position, it was stabilized with a bone clamp. The fracture was fixated using an Arthrex a titanium distal fibular locking plate which was was applied across the fracture site using a total of four 3.0mm locking screws and 1 3.0mm low profile cancellous screw distally and five 3.5mm locking screws, one 3.5mm cortical screw, and two 3.5mm cortical syndesmotic screws proximally through the plate using rigid open reduction internal fixation technique. The clamp was removed. There fracture was reduced and in good position. The ankle was put through range of motion and there was noted to be significant medial instability consistent with deltoid ligament rupture insufficiency. Attention was directed to the medial malleolus. A skin incision was made overlying the medial malleolus using a 15 scalpel blade. Careful blunt dissection was completed down to the medial malleolus where the deltoid ligament was noted to be completely ruptured. The deltoid ligament (deep and superficial) were reconstructed using an Arthrex Internal Brace. The sustentaculum hussain was identified. A drill hole was placed through the medial malleolus and also through both the sustentaculum hussain and medial aspect of the neck of the talus. A Swivelock was placed into the medial malleolus drill hole. One arm of the FiberTape was directed deep to the posterior tibial tendon and flexor digitorum longus tendon. A second Swivelock was placed to the sustentaculum hussain drill hole with the FiberTape was proper tension. Of note there was not the best purchase of this first Swivelock into the sustentaculum hussain so it was switched out for a larger one. Next a thrid Swivelock was placed into the medial neck of talus drill hole with the other arm of the FiberTape was proper tension - this reconstructed both the superficial and deep deltoid ligament. There fracture was reduced and in good position. This was confirmed using intra operative fluoroscopy. The distal syndesmosis was stressed with a bone hook as well as with dorsiflexion external rotation stress test, and it was very stable with no gapping present. The medial ankle was now stable as well. There was noted to be excellent stability to the ankle joint, range of motion was smooth and gliding normally. There was no popping, clicking, or crepitus present. Intraoperative fluoroscopy was used to check the site and it was noted fibular length and tib fib overlap was normal, ankel mortise with medial and lateral gutters in normal position/alignment in good position with good positioning of the plate and screws. There was good bone to bone alignment of the fracture site. The posterior malleolus fracture was not fixated as it was a small avulsion fracture and was reduced in proper position. There was excellent stability to the ankle / fracture site. The ankle was stressed under fluoroscopy and negative anterior drawer, normal talar tilt, no medial gutter gapping with external stress test, and no gapping or instability with Cotton test as noted above. The surgical sites were flushed out with copious amounts of normal saline solution. The periosteum was reapproximated using 2-0 Vicryl, the subcutaneous tissue was reapproximated using 3-0 Vicryl, and the skin was 3-0 Monocryl. 19mL of 0.5% Marcaine plain was given as an ankle block to aid post operative pain control. The incision site and margins were painted with Cavilon and steri strips were applied across the sutured skin incision sites. A dressing was applied which consisted of betadine soaked adaptic, 4x4 gauze, kerlix, webril, jorge bandages, and well padded below knee posterior splint. Prior to closure the tight pneumatic tourniquet was deflated and it was noted all hemostasis was achieved. There was immediate return of vascular flow to the foot/ankle, CFT < 2 seconds, and normal temperature present. Total tourniquet time was 120 minutes. Also of note, all vital structures, including all vital neurovascular and tendon structures were properly identified, protected and retracted as necessary. The patient tolerated the above procedure well and anesthesia well with no complications. The patient was transported to the recovery room in good condition and vital signs stable. Post op orders were placed, no weightbearing right foot, keep right foot elevated. She will be sent back to the floor with plan to be discharged to a nursing facility in the future for recovery Post op ankle xrays were obtained in the recovery room as well which again confirmed open reduction of the ankle fracture with the ankle in good alignment. Fibular length and tib fib overlap was normal, medial and lateral gutters intact, and alignment in good position with good positioning of the plate and screws. There was good bone to bone alignment of the fracture site in good position. There was excellent stability to the ankle / fracture site. Grafts/Implants Used: 1 Arthrex Distal Fibular plate and screws, Internal Brace right ankle - Complications None
[2018-05-29] MEDS: Cefazolin 1 GM/50 ML BAG IV (20:51)
[2018-05-29] MEDS: Nortriptyline 25 MG Capsule 150 MG PO (20:51)
[2018-05-29] MEDS: Zolpidem Tartrate 5 MG Tablet PO (20:52)
--- NOTE | 2018-05-29 20:54 | NURSING ---
Pt requesting PM meds now
[2018-05-30] VITALS (11 sets, daily range): BP systolic 96–119; BP diastolic 49–62; PULSE 72–94; RESP 14–18; TEMP 37.3–38.3; O2SAT 94–100; BMI 28.5
--- NOTE | 2018-05-30 01:33 | NURSING ---
Ayad CLEANING called me to pt's room because she said pt was weaker than before. When I entered the room, I noticed pt sitting on the side of the bed & she wanted to get up to BSC. When I started talking to her, her speech was slurred and the pt told me that she was seeing two of me. Pt's left eye was a little droopy. I told Ayad not to get pt up & I quickly had Jocelyn (who was pt's primary RN) come to the room to see if this was different than pt's baseline. Jocelyn indicated that she was definitely acting different, so the decision was made to call a stroke alert.
--- NOTE | 2018-05-30 01:57 | CT_ITS ---
STUDY: CT BRAIN WITHOUT CONTRAST REASON FOR EXAM: Female, 73 years old. Double vision. Slurred speech. RADIATION DOSAGE (If Supplied By Facility): CTDIvol = ( 44.99 ) mGy, DLP = ( 796.11 ) mGycm TECHNIQUE: Transaxial CT imaging of the brain was performed without administration of intravenous contrast material. Individualized dose optimization techniques were used for this CT. COMPARISON: None. FINDINGS: There is a left-sided pterional craniotomy with the presence of aneurysmal clips in the suprasellar region and in the left sylvian fissure. There is also a coil in the suprasellar region. There is no acute hemorrhage or acute infarction. The ventricles are normal.. CT/Brain/Head without Contrast IMPRESSION: No acute findings in the brain. A left pterional craniotomy with presence of aneurysmal clips (suprasellar region and in the left sylvian fissure) and a coil in place (suprasellar region) N.B. : The above information has been verbally conveyed by Suleiman Cardenas MD to Tammie Guillory RN, on 05/30/2018 02:20:03 (ET). Electronically Signed: Suleiman Cardenas MD at 2:21 EST Tel , Service support ,
--- NOTE | 2018-05-30 01:58 | NURSING ---
Called to room @ 0130 by PURSE SEINER d/t patient acting different and complaining of double vision. This RN and supervisor propellant charge loading performed neuro assessments. Patient is noted to have garbled speech, left pupil delayed in reaction and larger than right. At 0135 Stroke team was called via autoclave operator. Crash cart to room at this time and vitals obtained. Demetra from ICU arrived shortly after and began NIH. Dr. Palacios to bedside @ 0140. CPS and used car sales supervisor RN also responded. At 0145 Dr. Palacios gave verbal order for Stat CT w/o contrast and this was called down. Patient blood sugar obtained and placed on heart monitor prior to transport. Dr. Palacios would like patient transferred to PCU from CT and have an EKG performed once to PCU. Tiara from CPS notified of EKG.
--- NOTE | 2018-05-30 02:25 | EKG12_ITS ---
Test Reason : Blood Pressure : / mmHG Vent. Rate : 089 BPM Atrial Rate : 089 BPM P-R Int : 174 ms QRS Dur : 092 ms QT Int : 366 ms P-R-T Axes : 022 035 044 degrees QTc Int : 445 ms Normal sinus rhythm Normal ECG When compared with ECG of 26-MAY-2018 19:04, No significant change was found Confirmed by RAFAEL TAVERA, GOLDY ([id number]), photographic editor BELLA RUGGIERO ([id number]) on 06/03/2018 2:23:15 PM Referred By: Erlinda Palacios Confirmed By:GOLDY HALL MD
[2018-05-30 02:30] LABS: Bedside Glucose 138 mg/dL (70-110)
--- NOTE | 2018-05-30 02:40 | PCM.PN.BLA ---
Progress Note Stroke team alert called at 1:35 AM because patient acted differently, complaint of double vision and nursing staff reported that she has slurred speech. On examination, patient was alert and oriented. Her left eye is partially closed compared to the right eye and pupils are almost equal and reactive to light. She has no focal deficit. No drift, patient was able to hold both upper extremities for 10 seconds and both lower extremities for 5 seconds. She has no focal deficit on physical exam. 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 And also she went for surgery for distal fibular and tibial fracture.. Her vital signs are stable. CT scan brain done stat and showed no acute infarction or hemorrhage. Plan: Transfer to PCU, NIH stroke scale, MRI brain tomorrow morning.
[2018-05-30] MEDS: 0.9% Normal Saline 1,000 ML 100 ML IV ×2 (03:04→13:24)
[2018-05-30] MEDS: 0.9% NaCl Peripheral Flush Adult/Peds IV (03:04)
[2018-05-30] MEDS: Acetaminophen 325 MG Tablet 650 MG PO (03:04)
[2018-05-30] MEDS: Cefazolin 1 GM/50 ML BAG IV ×2 (05:00→13:22)
[2018-05-30 06:30] LABS: Absolute Lymphocyte Count 1.46 X10^3/ul (0.83-4.51); Absolute Neutrophil Count 8.6 X10^3/uL (2.0-7.7); Basophil# 0.01 X10^3/uL; Basophil% 0.1 % (0-1); Eosinophil# 0.04 X10^3/uL; Eosinophils% 0.3 % (0-5); Hematocrit 34.1 % (37-47); Hemoglobin 11.2 g/dl (12.0-15.0); Lymphocyte # 1.46 X10^3/ul (4.0); Lymphocyte % 12.7 % (19-41); Mean Corp Hgb Conc 32.8 g/gl (32-36); Mean Corpuscular Hgb 30.6 pg (27.0-32.0); Mean Corpuscular Volume 93.2 fL (81-99); Mean Platelet Vol. 8.3 fl (6.2-12.0); Monocyte# 1.36 X10^3/uL; Monocyte% 11.9 % (0-10); Neutrophil # 8.58 X10^3/uL (2.7-7.7); Neutrophil % 74.8 % (47-70); Platelet Count 259 K/mm3 (150-450); RBC Distribution Width CV 12.4 % (11.6-14.6); RBC Distribution Width SD 42.4 fl (35.1-43.9); Red Blood Count 3.66 M/mm3 (4.2-5.4); White Blood Count 11.5 K/mm3 (4.4-11.0)
[2018-05-30 06:31] LABS: POSITIVE COUNT NO; POSITIVE DIFFERENTIAL NO; POSITIVE MORPHOLOGY NO
--- NOTE | 2018-05-30 06:31 | MRI_ITS ---
STUDY: MRI BRAIN WITHOUT CONTRAST REASON FOR EXAM: Female, 73 years old. CVA. Left facial droop. Slurred speech. History of brain coils and clips. TECHNIQUE: Standardized multiplanar fat and water weighted pulse sequences were obtained. COMPARISON: Prior MRI scans are not available for comparison. FINDINGS: No restricted diffusion to suspect acute or subacute ischemic infarct. Signal distortion artifacts in the left MCA and in the left suprasellar cistern due to previous surgical clipping and coiling therapy. Normal size of the ventricles and extra-axial spaces for the patient's age. Normal white matter tracts of the supratentorial brain. Normal bilateral basal ganglia. Normal thalami. There is no extra-axial fluid accumulation. Normal flow voids within the major intracranial circulation suggesting patency by spin echo criteria. Normal sella turcica, pituitary gland, infundibular stalk, optic chiasm and hypothalamus. Normal tectal plate and pineal gland. Normal midbrain, renato and medulla. Normal cerebellum. Normal basal cisterns. Normal bilateral temporal bones. Normal bilateral internal auditory canals. No demonstrated orbital abnormality, within the constraints of a routine brain study. Normal visualized paranasal sinuses. Normal calvarium and skull base. Normal visualized soft tissue structures. Normal visualized upper cervical spine. MRI/Brain without Contrast IMPRESSION: 1. Signal distortion artifacts in the left sylvian fissure and suprasellar area from aneurysm clipping and endovascular coil therapy. 2. No MRI evidence of suspicious acute or subacute ischemic infarct outside the metallic artifacts. Electronically Signed: Sarbjit Patel MD at 14:08 EST , Service support ,
--- NOTE | 2018-05-30 06:32 | MRI_ITS ---
STUDY: MRA NECK WITHOUT CONTRAST REASON FOR EXAM: Female, 73 years old. CVA. Left facial droop. Slurred speech. TECHNIQUE: Source images were obtained, MIPs were performed. The study was performed unenhanced. COMPARISON: None. FINDINGS: RIGHT CAROTID ARTERIES: Normal right common carotid artery (CCA). Normal right internal carotid bulb. Normal origin of the right internal carotid (ICA) artery without a hemodynamically significant stenosis. Normal visualized cervical portion of the right internal carotid artery. Normal origin of the right external carotid artery (ECA). LEFT CAROTID ARTERIES: Normal left common carotid artery (CCA). Normal left internal carotid bulb. Normal origin of the left internal carotid (ICA) artery without a hemodynamically significant stenosis. Normal visualized cervical portion of the left internal carotid artery. Normal origin of the left external carotid artery (ECA). VERTEBRAL ARTERIES: Normal antegrade flow within the bilateral vertebral artery without a hemodynamically significant stenosis. The left this more dominant. MRI/MRA Neck without Contrast IMPRESSION: Normal bilateral cervical carotid and vertebral arteries. Electronically Signed: Sarbjit Patel MD at 14:09 EST , Service support ,
--- NOTE | 2018-05-30 06:32 | MRI_ITS ---
STUDY: MRA OF THE HEAD WITHOUT CONTRAST REASON FOR EXAM: Female, 73 years old. Left facial droop and slurred speech. TECHNIQUE: 3-D [id number] (TOF) imaging was performed with MIPs. The study was performed unenhanced. COMPARISON: None. FINDINGS: Normal bilateral petrous carotid arteries. Normal right cavernous carotid artery with a normal supraclinoid bifurcation. Signal dropout in the left cavernous internal carotid artery and left supraclinoid internal artery, the left distal M1 segment and the left M1 bifurcation from endovascular coil therapy and/or aneurysm clipping surgery. Normal right A1 segment of the anterior cerebral artery. Signal obliteration of the left A1 segment of the anterior cerebral artery. Normal intact anterior communicating artery (ACOM). Signal obliteration of the anterior bilateral A2 segments of the anterior cerebral arteries. Normal right M1 and M2 segments of the middle cerebral arteries, with a normal M1 bifurcation. Signal obliteration of the left M1 and M2 segments of the middle cerebral arteries, and the M1 bifurcation. No visible right posterior communicating artery (PCOM). No visible left posterior communicating artery (PCOM). Normal bilateral vertebral arteries. Normal basilar artery with a normal basilar bifurcation. The visualized bilateral superior cerebellar (SCA) arteries are normal. Normal bilateral P1, P2 and visualized P3 segments of the posterior cerebral arteries. There is no demonstrated aneurysm of the [place]. There is no major vessel occlusion or hemodynamically significant stenosis. There is no demonstrated abnormality of the visualized brain. MRI/MRA Head ONLY without Contrast IMPRESSION: 1. Limited MRA due to signal obliteration of the left cavernous internal carotid artery, left supraclinoid ICA, left M1 segment, left A1 segment and the anterior pericallosal arteries. 2. The visualized intracranial vessels show no suspicious aneurysm or vaso-occlusive disease. Electronically Signed: Sarbjit Patel MD at 14:20 EST , Service support ,
--- NOTE | 2018-05-30 07:09 | PN_ITS ---
Patient Problems: Active and Suspected Problems Closed right ankle fracture (Acute) Subjective: Patient overnight at approximately 1:30 in the morning she was awoken and staff it felt like her speech was mildly garbled and there was concern that she had mild eyelid droop however patient does have chronic mild left eyelid drooping from prior brain surgery and this is unchanged in this morning following water intake speech completely normal and at baseline. She says she has felt markedly fatigued and more sluggish secondary to postoperative narcotics and anesthetics. Patient also evaluated by podiatry this morning and feel that she is her baseline as well. Discussed case with neurology and will obtain MRI brain to be cautious with pending card clearance given history of clipping, coiling, wrapping for brain aneurysms although she has stated that these are MRI compatible. Patient notes currently pain controlled and besides being fatigued and sluggish secondary to narcotics doing well. Patient denies fevers, chills, nausea, emesis, abdominal pain, chest pain or dyspnea. Objective: Physical Examination: General: awake, alert, oriented x 3 and cooperative, seated upright in bed in no apparent distress, more sluggish and fatigued than normal, initially resting however awake and easily but speech mildly garbled until she took a swallow of water and noted that her mouth has been more dry otherwise appears completely baseline. Skin: normal color, turgor, no icterus, cyanosis, right lower extremity status post operative intervention with casting in place, mildly increased edema from day prior to the toes, able to move, recent LLE 3rd toe debridement with suturing in place and as well as postsurgical changes, edematous ankle improving. HEENT: AT/NC, EOMI, PERRLA, MMM, patient bilateral eyelids the same is presentation to the hospital, chronic mild minimal left eyelid alteration secondary to prior brain surgery. Lungs: CTA bilaterally, moderate effort, mild decrease BL bases, no rales, ronchi or wheezing. Heart: Regular rate and rhythm; no gallop, rub audible. Abdomen: soft, NTTP, ND, normal BS. Extremities: no cyanosis, clubbing, see skin. Neurological: patient awake, alert, oriented x 3; cognitive function intact; pupils equally reactive to light and accomodation; cranial nerves II-XII grossly normal, moving all 4 extremities although limited right lower extremity given recent fracture with splinting complicated by left foot debility, strength accordingly moderately to severely globally decreased, patient bilateral eyelids the same is presentation to the hospital, chronic mild minimal left eyelid alteration secondary to prior brain surgery, speech normal following more awake and following sip water, notes sensitive to narcotics, more sluggish otherwise no evidence of any deficit. Psychiatric: affect appears more fatigued, no acute evidence of depressive or a nxiety feelings. Vitals/I&O's: Vital Signs Temp Pulse Resp BP Pulse Ox 99.4 F H 82 18 96/49 L 96 05/30/18 05:08 05/30/18 05:08 05/30/18 05:08 05/30/18 05:08 05/30/18 05:08 Oxygen Flow Rate (L/min) [1 ( 4 Initial Baseline)] Oxygen Flow Rate (L/min) 4 Oxygen Delivery Method [2] Nasal Cannula Oxygen Delivery Method [1 ( Nasal Cannula Initial Baseline)] Oxygen Delivery Method Room Air Weight: 161 lb Body Mass Index (BMI) 28.5 Finger Stick Blood Glucose 138 Intake and Output for Last 24 Hours 05/28/18 05/29/18 05/30/18 23:59 23:59 23:59 Intake Total 2596 / 2596 1871 / 1871 Output Total 650 / 650 200 / 200 Balance 194 / 1945 1671 / 1671 Laboratory Results 05/30/18 01:52: POC Glucose 138 H 05/30/18 06:07: WBC 11.5 H, RBC 3.66 L, Hgb 11.2 L, Hct 34.1 L, MCV 93.2, MCH 30.6, MCHC 32.8, RDW 12.4, RDW Differential 42.4, Plt Count 259, MPV 8.3, Immature Gran % (Auto) 0.200, Neut % (Auto) 74.8 H, Lymph % (Auto) 12.7 L, [place] % (Auto) 11.9 H, Eos % (Auto) 0.3, Baso % (Auto) 0.1, Absolute Neuts (auto) 8.6 H, Absolute Lymphs (auto) 1.46, Total Counted Not Reportable 05/30/18 06:07: Sodium Pending, Potassium Pending, Chloride Pending, Carbon Dioxide Pending, Anion Gap Pending, BUN Pending, Creatinine Pending, Est GFR (MDRD) Af Amer Pending, Est GFR (MDRD) Non-Af Pending, BUN/Creatinine Ratio Pending, Glucose Pending, Calcium Pending Current Medications Acetaminophen (Tylenol) 650 mg PO Q6H PRN PRN PRN Reason: Non-cardiac pain (mod-severe) Last Admin: 05/30/18 03:04 Dose: 650 mg Hydrocodone Bitart/Acetaminophen ([place] 5mg-325mg) 1 - 2 tablet PO Q6H PRN PRN PRN Reason: Moderate-severe pain Al Hydroxide/Mg Hydroxide (Mylanta Ii) 30 ml PO Q6H PRN PRN PRN Reason: Gastric burning Atenolol (Tenormin ([place])) 25 mg PO BID [facility] Last Admin: 05/29/18 20:51 Dose: 25 mg Enoxaparin Sodium (Lovenox) 40 mg SC DAILY@1000 [facility] Last Admin: 05/28/18 12:26 Dose: Not Given Estradiol (Estrace (G)) 1 mg PO DAILY@0800 [facility] Last Admin: 05/29/18 09:32 Dose: Not Given Fentanyl Citrate (Sublimaze (100mcg Ampule)) 25 mcg IV Q3H PRN PRN PRN Reason: moderate to severe pain Hydralazine HCl (Apresoline Iv) 10 mg IV Q4H PRN PRN PRN Reason: SBP > 160 Sodium Chloride () 1,000 mls @ 100 mls/hr IV .Q10H [facility] Last Admin: 05/30/18 03:04 Dose: 100 mls/hr Cefazolin Sodium () 1 gm in 50 mls @ 100 mls/hr IV Q8 [facility] Stop: 05/30/18 14:29 Last Admin: 05/30/18 05:00 Dose: 100 mls/hr Lactulose (Chronulac, Cephulac) 10 gm PO BID PRN PRN Reason: Constipation Magnesium Hydroxide (Milk Of Magnesia) 30 ml PO DAILY PRN PRN PRN Reason: Constipation Nortriptyline HCl (Pamelor) 150 mg PO QHS [facility] Last Admin: 05/29/18 20:51 Dose: 150 mg Ondansetron HCl (Zofran) 4 mg IV Q8H PRN PRN PRN Reason: NAUSEA/VOMITING Pantoprazole Sodium (Protonix) 20 mg PO DAILY [facility] Last Admin: 05/29/18 09:32 Dose: Not Given Promethazine HCl (Phenergan) 6.25 mg IV Q4H PRN PRN PRN Reason: NAUSEA/VOMITING Sodium Chloride () 5 - 15 ml IV UD PRN PRN Reason: SALINE FLUSH Last Admin: 05/30/18 03:04 Dose: 10 ml Sodium Chloride () 5 - 15 ml IV UD PRN PRN Reason: SALINE FLUSH Zolpidem Tartrate (Ambien (Generic)) 5 mg PO QHS [facility] Last Admin: 05/29/18 20:52 Dose: 5 mg Medical Necessity - Tobacco Use Smoking Status: Never smoker Tobacco Use: Non-smoker Assessment/Plan All Active Problems Closed right ankle fracture (Acute) The patient is a 73 y/o F w/ PMHx: HTN, HLD, GERD, OA, Anxiety and Depression who presents to the [facility] ED on 05/26/18 with history of slipping on the ice while walking, aggressively twisting her right ankle with notable debility, pain and edema following complicated by left post-op shoe in place with JEANNIE wrap secondary to prior hallux varus surgery by Dr. Arias in addition to recent left third toe small distal phalanx surgery with suture in place approximate 5 weeks prior who presents to the [facility] ED on 05/26/18 secondary to slipping on the ice with R ankle deformity, debility and pain following. (1) General debility, R Ankle, RLE pain s/p mechanical fall w/ comminuted distal fibular and posterior malleolar tibial fracture: Plain film noting comminuted distal fibular fracture and posterior malleolus fracture of the tibia with dislocation with ED procedural sedation and reduction with Ortho-Glass splint placement and post reduction films demonstrating appropriate reduction. Patient admitted to [facility], pending vitamin D level, NWB to RLS, continue L boot per Dr. Arias discretion, offloading ankle RLE, elevation RLE, monitor I/Os, frequent positioning, fall precautions, pain, anti-emetic regimen. PT/OT, CM consulted fo r discharge planning. OR 05/29/18 secondary to OR availability. Patient with pain controlled, continue aggressive elevation which she has been doing with notable improvement of edema. If #2 evaluation unremarkable, suspect will be the case, suspect likely slurred speech and sluggish secondary to narcotics post- operatively and anesthetics; then 05/30/18 would continue with plan for SNF transition which was amenable per Neurology. Would plan prior noted operative discharge plans including nonweightbearing to the right lower extremity, elevation of right lower extremity, plan follow-up with podiatry within 1 week, dressing to remain clean and dry and intact to be removed at follow-up only with podiatry as well as continuation of DVT prophylaxis until discontinuation per podiatry. (2) ? Slurred Speech, Vision Changes, Initial Concern for Eyelid Mild droop: CT head obtained and no acute findings with initial concern for CVA 05/30/18 1:30 AM approximately, of note patient bilateral eyelids the same is presentation to the hospital, chronic mild minimal left eyelid alteration secondary to prior brain surgery. Awaiting MRI card clearance although patient has routine MRI w/ her neurosurgeon w/ history noted #7, will obtain MRI brain/MRA head and neck in case concerning findings does not delay evaluation. If these images are unremarkable per discussion with Neurology, likely secondary to sedative regimen, Neurology given history notes low suspicion for CVA event. Maintain on baby ASA in interim. (3) Prior Remote L Foot Surgery w/ Recent 3rd Toe Distal Surgery: Podiatry consulted, noted 06/2015 first metatarsal osteotomy bunionectomy, second metatarsal osteotomy, repair second metatarsal phalangeal joint plantar plate, second toe arthrodesis, flexortenotomy of third and fourth toes with recent ~ 5 weeks prior in office treatment distal left third toe with sutures in place, continue boot parameters, dry dressing daily to the region, wound consulted, PT/OT, CM consulted for discharge planning, as noted if #2 unremarkable work-up would plan 05/30/18 SNF placement. (3) Hypertension: Continue home regimen including atenolol, PRN hydralazine. (4) Hyperlipidemia: Will hold patient home niacin and red yeast rice. (5) Chronic constipation: Continue home lactulose regimen as needed. (6) Anxiety and Depression: Continue home nortriptyline regimen. (7) History of Brain Aneurysm: Aneurysm x4, s/p coiling x 1, clipping x 2, wrapping x 1, notes ALL MRI compatible, follows annually with her neurosurgeon with imaging. As noted, #2, awaiting card clearance noting okay for MRI, requested patient in the future keep this on her at all times to avoid delay in evaluations. (8) GERD: PPI. (9) DVT Prophylaxis: SCDs, lovenox restarted 05/30/18. Code Visit Inpatient E&M: 06028 Subs Hosp L3
[2018-05-30 07:17] LABS: Anion Gap 10 (5-15); BUN 12 mg/dL (7-18); BUN/Creat Ratio 13.2 RATIO (10-20); Calcium,Total 7.6 mg/dL (8.5-10.1); Chloride 105 mmol/L (98-107); Creatinine, Serum 0.91 mg/dL (0.55-1.02); EST Glomerular Filtration Rate 65 mL/min (>60); Est Glom Filt Rate - Afr Amer 78 mL/min (>60); Estimated Creatinine Clearance 46.23 ml/min; Glucose 132 mg/dL (74-106); Potassium 3.9 mmol/L (3.5-5.1); Sodium Level 140 mmol/L (136-145)
--- NOTE | 2018-05-30 07:31 | PN_ITS ---
Patient Problems: Active and Suspected Problems Closed right ankle fracture (Acute) Subjective: Patient s/p ORIF ankle fracture 05/29/18, patient was transferred to PACU overnight due to garbled speech and concern for stroke. Brain CT with no acute hemorrhage or acute infarction. Patient is waiting to get MRI this morning. Otherwise patient relates she slept well, and has no complaints, she was resting comfortably in bed and having normal conversation with me this morning. She denies pain to the right foot or ankle. No complaints of fever, chills, nausea, vomiting, shortness of breath, chest pain or calf pain. - Physical Exam General: Alert, Cooperative, No apparent distress Extremities: Capillary Refill Less than 3 Seconds, No Calf Tenderness, - - Splint/dressing to the right foot/ankle is clean, dry and intact, patient able to dorsiflex and plantarflex toes on the right foot, CFT < 2 seconds to the toes with normal temperature. Left foot muscle strength at baseline. Left 3rd toe wound with intact sutures and healed at this time with no evidence of infection or complication. Musculoskeletal: No Tenderness to Palpation of Joints or Extremities - to the foot or ankle, right Vital Signs Temp Pulse Resp BP Pulse Ox 99.4 F H 82 18 96/49 L 96 05/30/18 05:08 05/30/18 05:08 05/30/18 05:08 05/30/18 05:08 05/30/18 05:08 Oxygen Flow Rate (L/min) [1 ( 4 Initial Baseline)] Oxygen Flow Rate (L/min) 4 Oxygen Delivery Method [2] Nasal Cannula Oxygen Delivery Method [1 ( Nasal Cannula Initial Baseline)] Oxygen Delivery Method Room Air Weight: 73.028 kg Body Mass Index (BMI) 28.5 Finger Stick Blood Glucose 138 Intake and Output for Last 24 Hours 05/28/18 05/29/18 05/30/18 23:59 23:59 23:59 Intake Total 2596 / 2596 1871 / 1871 Output Total 650 / 650 200 / 200 Balance 1946 / 1946 1671 / 1671 Laboratory Tests Past 24 Hrs 05/30/18 05/30/18 06:07 06:07 WBC 11.5 H RBC 3.66 L Hgb 11.2 L Hct 34.1 L MCV 93.2 MCH 30.6 MCHC 32.8 RDW 12.4 RDW Differential 42.4 Plt Count 259 MPV 8.3 Immature Gran % (Auto) 0.200 Neut % (Auto) 74.8 H Lymph % (Auto) 12.7 L [place] % (Auto) 11.9 H Eos % (Auto) 0.3 Baso % (Auto) 0.1 Absolute Neuts (auto) 8.6 H Absolute Lymphs (auto) 1.46 Total Counted Not Reportable Sodium 140 Potassium 3.9 Chloride 105 Carbon Dioxide 25.0 Anion Gap 10 BUN 12 Creatinine 0.91 Estim Creat Clear Calc 46.23 Est GFR (MDRD) Af Amer 78 Est GFR (MDRD) Non-Af 65 BUN/Creatinine Ratio 13.2 Glucose 132 H Calcium 7.6 L POC Glucose 05/30/18 01:52 POC Glucose 138 H Medical Necessity - Tobacco Use Smoking Status: Never smoker Tobacco Use: Non-smoker Assessment/Plan All Active Problems Closed right ankle fracture (Acute) Trimalleolar Equivalent Ankle Fracture Right, s/p ORIF on 05/29/18 Healed ulcer left 3rd toe Peripheral Neuropathy bilateral lower extremity - chronic Below knee splint/dressing to the right foot/ankle clean, dry and intact - heel is offloaded. Keep clean, dry and intact. Keep right foot elevated with pillows and keep heel offloaded. No weightbearing right foot. [place] is ordered to aid pain control, but patient has not needed as she has no pain. Lovenox for DVT prophylaxis. Left 3rd toe: ulcer site doing well. Sutures intact, no evidence of infection or complication. Change dressing daily using normal saline solution to cleanse site, apply adaptic an overlying 4x4 gauze. D/C Planning: Brain MRI is pending. Otherwise from foot/ankle standpoint ok to go to correction. Discussed with Dr. Michelle.
--- NOTE | 2018-05-30 07:40 | PCM.DC.POD ---
Discharge Activity: May Not Drive Weight Bearing Status: No weight bearing - Strict nonweightbearing right foot/ankle Keep extremity elevated above heart level: Right Leg - Keep right foot/ankle elevated at least 50 minutes of every hour using pillows, keep heels offloaded Call your doctor if your incision/area has: Continuous Slow Oozing, Sudden Increased Bleeding, Foul Smelling Discharge Call your doctor if you observe: Fever of 101 or Higher, Coldness, Increased Pain, Shortness of breath, Chest pain, Calf discomfort, Uncontrolled pain Cleanse incision/area with: Do not get Incision Wet, Keep Dressing Clean & Dry - Keep below knee splint and dressing right lower extremity clean, dry and intact. Left foot 3rd toe: Change dressing daily. Cleanse with normal saline solution and apply overlying adaptic with gauze dressing. Allergies/Adverse Reactions: Allergies codeine Adverse Reaction (Verified 05/26/18 12:55) Nausea fluoxetine HCl [From Prozac] Adverse Reaction (Verified 05/26/18 12:55) shivers morphine Adverse Reaction (Verified 05/26/18 12:55) Nausea Medications to take at Discharge Aromatic [place] Fluid Extract [Cascara [place]] 1,350 mg PO QHS 07/07/15 Cholecalciferol (Vitamin D3) [Vitamin D3] 5,000 unit PO DAILY 07/07/15 Estradiol [Estrace (G)] 1 mg PO DAILY 07/07/15 Flaxseed Oil/[place] 3,6,9 [Sv Flaxseed Oil 1,300 mg Sftgl] 1 each PO BID 07/07/15 Folic Acid 0.4 mg PO DAILY@0800 07/07/15 Glucosam/Chondr-Msm6/Manganese [Glucosamine-Chondroitin Sftgl] 1 each PO DAILY 07/07/15 Lun[place] 2 tab PO BID 07/07/15 Magnesium 250 mg PO DAILY 07/07/15 Niacin 100 mg PO DAILY 07/07/15 Red Yeast Rice 600 mg PO QHS 07/07/15 Tumeric 1 tab PO BID 07/07/15 Vitamin A 10,000 unit PO DAILY 07/07/15 Vitamin E 1,000 unit PO DAILY 07/07/15 Omeprazole [Prilosec] 20 mg PO DAILY 08/11/17 Lactulose 10 gm PO BID PRN #1 bottle 08/18/17 Atenolol 25 mg PO BID 05/26/18 Biotin 1 mg PO DAILY 05/26/18 Reliv 1 tab PO 4X/DAY 05/26/18 Zolpidem Tartrate 10 mg PO QHS 05/26/18 Nortriptyline HCl 150 mg PO QHS 05/27/18 Acetaminophen [Tylenol Tablet] 650 mg PO Q6H PRN PRN tablet 05/29/18 Enoxaparin [Lovenox] 40 mg SC DAILY@1000 syringe 05/29/18 Hydrocodone Bitart/Apap 5-325 [[place] 5/325] 1 - 2 tab PO Q4H PRN PRN 2 Days #20 tab 05/29/18 Mag Hydrox/Al Hydrox/Simeth [Mylanta II] 30 ml PO Q6H PRN PRN udc 05/29/18 Magnesium Hydroxide [Milk Of Magnesia] 30 ml PO DAILY PRN PRN udc 05/29/18 Ondansetron [Zofran] 8 mg PO Q8H PRN PRN #20 tablet 05/29/18 The following prescriptions were given: Hydrocodone Bitart/Apap 5-325 [[place] 5/325] 1 - 2 tab PO Q4H PRN PRN 2 Days #20 tab PRN Reason: Moderate-severe pain Ondansetron [Zofran] 8 mg PO Q8H PRN PRN #20 tablet PRN Reason: nausea, emesis Primary Care Physician: Radha Chang MD [Primary Care Provider] - Please follow up with your Primary Care Physician in: Follow-up within 3-5 days hosp d/c and within 1-2 days SNF d/c. Test Results: Test results from this visit will be discussed in further detail at your follow-up appointment, if applicable. Please Follow Up With: Ruiz Arias DPM When: Follow-up 1 week. Earlier if concerns. Call with questions.
--- NOTE | 2018-05-30 07:43 | DCINST_ITS ---
Discharge Activity: May Not Drive Weight Bearing Status: No weight bearing - Strict nonweightbearing right foot/ankle Keep extremity elevated above heart level: Right Leg - Keep right foot/ankle elevated at least 50 minutes of every hour using pillows, keep heels offloaded Call your doctor if your incision/area has: Continuous Slow Oozing, Sudden Increased Bleeding, Foul Smelling Discharge Call your doctor if you observe: Fever of 101 or Higher, Coldness, Increased Pain, Shortness of breath, Chest pain, Calf discomfort, Uncontrolled pain Cleanse incision/area with: Do not get Incision Wet, Keep Dressing Clean & Dry - Keep below knee splint and dressing right lower extremity clean, dry and intact. Left foot 3rd toe: Change dressing daily. Cleanse with normal saline solution and apply overlying adaptic with gauze dressing. Allergies/Adverse Reactions: Allergies codeine Adverse Reaction (Verified 05/26/18 12:55) Nausea fluoxetine HCl [From Prozac] Adverse Reaction (Verified 05/26/18 12:55) shivers morphine Adverse Reaction (Verified 05/26/18 12:55) Nausea Medications to take at Discharge Aromatic Cascara Fluid Extract [Cascara [place]] 1,350 mg PO QHS 07/07/15 Cholecalciferol (Vitamin D3) [Vitamin D3] 5,000 unit PO DAILY 07/07/15 Estradiol [Estrace (G)] 1 mg PO DAILY 07/07/15 Flaxseed Oil/[place] 3,6,9 [Sv Flaxseed Oil 1,300 mg Sftgl] 1 each PO BID 07/07/15 Folic Acid 0.4 mg PO DAILY@0800 07/07/15 Glucosam/Chondr-Msm6/Manganese [Glucosamine-Chondroitin Sftgl] 1 each PO DAILY 07/07/15 [place] 2 tab PO BID 07/07/15 Magnesium 250 mg PO DAILY 07/07/15 Niacin 100 mg PO DAILY 07/07/15 Red Yeast Rice 600 mg PO QHS 07/07/15 Tumeric 1 tab PO BID 07/07/15 Vitamin A 10,000 unit PO DAILY 07/07/15 Vitamin E 1,000 unit PO DAILY 07/07/15 Omeprazole [Prilosec] 20 mg PO DAILY 08/11/17 Lactulose 10 gm PO BID PRN #1 bottle 08/18/17 Atenolol 25 mg PO BID 05/26/18 Biotin 1 mg PO DAILY 05/26/18 Reliv 1 tab PO 4X/DAY 05/26/18 Zolpidem Tartrate 10 mg PO QHS 05/26/18 Nortriptyline HCl 150 mg PO QHS 05/27/18 Acetaminophen [Tylenol Tablet] 650 mg PO Q6H PRN PRN tablet 05/29/18 Enoxaparin [Lovenox] 40 mg SC DAILY@1000 syringe 05/29/18 Hydrocodone Bitart/Apap 5-325 [[place] 5/325] 1 - 2 tab PO Q4H PRN PRN 2 Days #20 tab 05/29/18 Mag Hydrox/Al Hydrox/Simeth [Mylanta II] 30 ml PO Q6H PRN PRN udc 05/29/18 Magnesium Hydroxide [Milk Of Magnesia] 30 ml PO DAILY PRN PRN udc 05/29/18 Ondansetron [Zofran] 8 mg PO Q8H PRN PRN #20 tablet 05/29/18 The following prescriptions were given: Hydrocodone Bitart/Apap 5-325 [[place] 5/325] 1 - 2 tab PO Q4H PRN PRN 2 Days #20 tab PRN Reason: Moderate-severe pain Ondansetron [Zofran] 8 mg PO Q8H PRN PRN #20 tablet PRN Reason: nausea, emesis Primary Care Physician: Radha Chang MD [Primary Care Provider] - Please follow up with your Primary Care Physician in: Follow-up within 3-5 days hosp d/c and within 1-2 days SNF d/c. Test Results: Test results from this visit will be discussed in further detail at your follow- up appointment, if applicable. Please Follow Up With: Ruiz Arias DPM When: Follow-up 1 week. Earlier if concerns. Call with questions.
[2018-05-30] MEDS: Estradiol 1 MG Tablet PO (10:07)
[2018-05-30] MEDS: Pantoprazole Sodium 20 MG Tablet PO (10:07)
--- NOTE | 2018-05-30 14:26 | PCM.DC.SUM ---
Discharge Date and Diagnosis - Problem List Patient Problems: Active and Suspected Problems Closed right ankle fracture (Acute) Date of Admission: 05/26/18 Date of Discharge: 05/30/18 - Primary Discharge Diagnosis Active and Suspected Problems (1) General debility, R Ankle, RLE pain s/p mechanical fall w/ comminuted distal fibular and posterior malleolar tibial fracture (2) ? Slurred Speech, Vision Changes, Initial Concern for Eyelid Mild droop; HOWEVER, ruled out, baseline Eyelid changes and Likely secondary to aggressive narcotic regimen and recent anesthetics, resolved (3) Prior Remote L Foot Surgery w/ Recent 3rd Toe Distal Surgery (3) Hypertension (4) Hyperlipidemia (5) Chronic constipation (6) Anxiety and Depression (7) History of Brain Aneurysm s/p coiling x 1, clipping x 2, wrapping x 1, notes ALL MRI compatible (CONFIRMED on 05/30/18) (8) GERD - Secondary Discharge Diagnosis Chronic Problems HTN (hypertension) (Chronic) Anxiety and depression (Chronic) HLD (hyperlipidemia) (Chronic) Chronic constipation (Chronic) Osteoarthritis (Chronic) GERD (gastroesophageal reflux disease) (Chronic) Brain aneurysm (Chronic) Hospital Course and Treatment Imaging Results: 05/30/18 06:31 Brain without Contrast [MRI] Stat 05/30/18 06:32 MRA Head ONLY without Contrast [MRI] Stat MRA Neck without Contrast [MRI] Stat Consultations 05/26/18 18:47 Consult: Onc/Wound/generation manager Routine Comment: Podiatry Dr. Arias/Dr. Skinner/Dr. Anne Neurology Discussed case with Dr. Oden, the patient MRI was unremarkable with no evidence acute CVA, felt presentation likely secondary to narcotic regimen and Neurology noted low suspicion upon discussion therefore patient cleared for SNF discharge prior to their evaluation. Operations: - - 05/29/18 Open Reduction Internal Fixation of Right Trimalleolus Equivalent Ankle Fracture Procedures: EKG Summary of Care Provided: The patient is a 73 y/o F w/ PMHx: HTN, HLD, GERD, OA, Anxiety and Depression who presented to the [facility] ED on 05/26/18 with history of slipping on the ice while walking, aggressively twisting her right ankle with notable debility, pain and edema following complicated by left post-op shoe in place with JEANNIE wrap secondary to prior hallux varus surgery by Dr. Arias in addition to recent left third toe small distal phalanx surgery with suture in place approximate 5 weeks prior who presents to the [facility] ED on 05/26/18 secondary to slipping on the ice with R ankle deformity, debility and pain following. Plain film noting comminuted distal fibular fracture and posterior malleolus fracture of the tibia with dislocation with ED procedural sedation and reduction with Ortho-Glass splint placement and post reduction films demonstrating appropriate reduction. Patient admitted to [facility], pending vitamin D level, NWB to RLS, continue L boot per Dr. Arias discretion, offloading ankle RLE, elevation RLE, monitor I/Os, frequent positioning, fall precautions, pain, anti-emetic regimen. PT/OT, CM consulted for discharge planning. 05/29/18 OR Open Reduction Internal Fixation of Right Trimalleolus Equivalent Ankle Fracture. Patient with pain controlled, continued aggressive elevation with treatment with pain regimen. 05/30/18 early 1:30 am with noted slurred speech, concern for mental status change and grogginess with concern for possible CVA, initial concern secondary to mild L eyelid droop; however, this is chronic and was unchanged but not known that time per evaluating physician therefore to be cautious, patient transitioned to PCU. CT head obtained and no acute findings obtained, discussed case with Neurology, recommended baby asa addition in interim but felt likely not CVA, obtained MRI brain/MRA head and neck with no acute evidence of stroke with as expected signal distortion artifact in the left sylvian fissure and suprasellar region secondary to clipping and endovascular coiling, MRA head with limited signal obliteration of the cavernous left internal carotid artery, left supraclinoid ICA, left M1 segment, left A1 segment and anterior pericalyceal arteries otherwise visualized intercranial vessels with no suspicious aneurysm or vaso-occlusive disease, MRA of the head with normal bilateral cervical carotid and vertebral arteries. Given normal MRI and MRA head and neck unremarkable per discussion with neurology was cleared for transition to [facility] facility as felt likely secondary to narcotic and recent anesthetic regimen. Patient clinically completely resolved and improved with no further concerning findings neurologically. Upon discharge to [facility] facility per discussion with podiatry continued recommendation of nonweightbearing to the right lower extremity, elevation of right lower extremity, plan follow-up with podiatry within 1 week, dressing to remain clean and dry and intact to be removed at follow-up only with podiatry as well as continuation of DVT prophylaxis until discontinuation per podiatry. Patient discharged to [facility] in stable improved condition with follow-up with podiatry and her primary care physician. Patient Problems: Active and Suspected Problems Closed right ankle fracture (Acute) - Physical Exam Vital Signs Temp Pulse Resp BP Pulse Ox 99.1 F 78 16 119/62 100 05/30/18 13:15 05/30/18 13:15 05/30/18 13:15 05/30/18 13:15 05/30/18 13:15 Oxygen Flow Rate (L/min) [1 ( 4 Initial Baseline)] Oxygen Flow Rate (L/min) 4 Oxygen Delivery Method [2] Nasal Cannula Oxygen Delivery Method [1 ( Nasal Cannula Initial Baseline)] Oxygen Delivery Method Room Air Weight: 161 lb Body Mass Index (BMI) 28.5 Finger Stick Blood Glucose 138 Intake and Output for Last 24 Hours 05/28/18 05/29/18 05/30/18 23:59 23:59 23:59 Intake Total 2596 / 2596 2521 / 2521 Output Total 650 / 650 700 / 700 Balance 1946 / 1946 1821 / 1821 Laboratory Tests Past 24 Hrs 05/30/18 05/30/18 06:07 06:07 WBC 11.5 H RBC 3.66 L Hgb 11.2 L Hct 34.1 L MCV 93.2 MCH 30.6 MCHC 32.8 RDW 12.4 RDW Differential 42.4 Plt Count 259 MPV 8.3 Immature Gran % (Auto) 0.200 Neut % (Auto) 74.8 H Lymph % (Auto) 12.7 L Ray % (Auto) 11.9 H Eos % (Auto) 0.3 Baso % (Auto) 0.1 Absolute Neuts (auto) 8.6 H Absolute Lymphs (auto) 1.46 Total Counted Not Reportable Sodium 140 Potassium 3.9 Chloride 105 Carbon Dioxide 25.0 Anion Gap 10 BUN 12 Creatinine 0.91 Estim Creat Clear Calc 46.23 Est GFR (MDRD) Af Amer 78 Est GFR (MDRD) Non-Af 65 BUN/Creatinine Ratio 13.2 Glucose 132 H Calcium 7.6 L POC Glucose 05/30/18 01:52 POC Glucose 138 H Home Medications: Medications to take at Discharge Aromatic Cascara Fluid Extract [Cascara [place]] 1,350 mg PO QHS 07/07/15 Cholecalciferol (Vitamin D3) [Vitamin D3] 5,000 unit PO DAILY 07/07/15 Estradiol [Estrace (G)] 1 mg PO DAILY 07/07/15 Flaxseed Oil/[place] 3,6,9 [Sv Flaxseed Oil 1,300 mg Sftgl] 1 each PO BID 07/07/15 Folic Acid 0.4 mg PO DAILY@0800 07/07/15 Glucosam/Chondr-Msm6/Manganese [Glucosamine-Chondroitin Sftgl] 1 each PO DAILY 07/07/15 Lunarich 2 tab PO BID 07/07/15 Magnesium 250 mg PO DAILY 07/07/15 Niacin 100 mg PO DAILY 07/07/15 Red Yeast Rice 600 mg PO QHS 07/07/15 Tumeric 1 tab PO BID 07/07/15 Vitamin A 10,000 unit PO DAILY 07/07/15 Vitamin E 1,000 unit PO DAILY 07/07/15 Omeprazole [Prilosec] 20 mg PO DAILY 08/11/17 Lactulose 10 gm PO BID PRN #1 bottle 08/18/17 Atenolol 25 mg PO BID 05/26/18 Biotin 1 mg PO DAILY 05/26/18 Reliv 1 tab PO 4X/DAY 05/26/18 Zolpidem Tartrate 10 mg PO QHS 05/26/18 Nortriptyline HCl 150 mg PO QHS 05/27/18 Acetaminophen [Tylenol Tablet] 650 mg PO Q6H PRN PRN tablet 05/29/18 Enoxaparin [Lovenox] 40 mg SC DAILY@1000 syringe 05/29/18 Hydrocodone Bitart/Apap 5-325 [[place] 5/325] 1 - 2 tab PO Q4H PRN PRN 2 Days #20 tab 05/29/18 Mag Hydrox/Al Hydrox/Simeth [Mylanta II] 30 ml PO Q6H PRN PRN udc 05/29/18 Magnesium Hydroxide [Milk Of Magnesia] 30 ml PO DAILY PRN PRN udc 05/29/18 Ondansetron [Zofran] 8 mg PO Q8H PRN PRN #20 tablet 05/29/18 Following Prescrptions Were Given to Patient: Hydrocodone Bitart/Apap 5-325 [[place] 5/325] 1 - 2 tab PO Q4H PRN PRN 2 Days #20 tab PRN Reason: Moderate-severe pain Ondansetron [Zofran] 8 mg PO Q8H PRN PRN #20 tablet PRN Reason: nausea, emesis Primary Care Physician: Radha Chang MD [Primary Care Provider] - Please follow up with your Primary Care Physician in: Follow-up within 3-5 days hosp d/c and within 1-2 days SNF d/c. Please Follow Up With: Ruiz Arias DPM When: Follow-up 1 week. Earlier if concerns. Call with questions. Disposition: [facility] facility Minutes spent on discharge:: 35 Patient Condition:: Fair Medical Necessity - Tobacco Use Smoking Status: Never smoker Tobacco Use: Non-smoker Meaningful Use Info Meaningful Use Diagnoses (Choose all that apply): None applicable Code Visit Inpatient E&M: 33892 Disch Hosp
--- NOTE | 2018-05-30 14:30 | DS.PCM_ITS ---
Discharge Date and Diagnosis - Problem List Patient Problems: Active and Suspected Problems Closed right ankle fracture (Acute) Date of Admission: 05/26/18 Date of Discharge: 05/30/18 - Primary Discharge Diagnosis Active and Suspected Problems (1) General debility, R Ankle, RLE pain s/p mechanical fall w/ comminuted distal fibular and posterior malleolar tibial fracture (2) ? Slurred Speech, Vision Changes, Initial Concern for Eyelid Mild droop; HOWEVER, ruled out, baseline Eyelid changes and Likely secondary to aggressive narcotic regimen and recent anesthetics, resolved (3) Prior Remote L Foot Surgery w/ Recent 3rd Toe Distal Surgery (3) Hypertension (4) Hyperlipidemia (5) Chronic constipation (6) Anxiety and Depression (7) History of Brain Aneurysm s/p coiling x 1, clipping x 2, wrapping x 1, notes ALL MRI compatible (CONFIRMED on 05/30/18) (8) GERD - Secondary Discharge Diagnosis Chronic Problems HTN (hypertension) (Chronic) Anxiety and depression (Chronic) HLD (hyperlipidemia) (Chronic) Chronic constipation (Chronic) Osteoarthritis (Chronic) GERD (gastroesophageal reflux disease) (Chronic) Brain aneurysm (Chronic) Hospital Course and Treatment Imaging Results: 05/30/18 06:31 Brain without Contrast [MRI] Stat 05/30/18 06:32 MRA Head ONLY without Contrast [MRI] Stat MRA Neck without Contrast [MRI] Stat Consultations 05/26/18 18:47 Consult: Onc/Wound/graphic illustrator Routine Comment: Podiatry Dr. Arias/Dr. Skinner/Dr. Anne Neurology Discussed case with Dr. Oden, the patient MRI was unremarkable with no evidence acute CVA, felt presentation likely secondary to narcotic regimen and Neurology noted low suspicion upon discussion therefore patient cleared for SNF discharge prior to their evaluation. Operations: - - 05/29/18 Open Reduction Internal Fixation of Right Trimalleolus Equivalent Ankle Fracture Procedures: EKG Summary of Care Provided: The patient is a 73 y/o F w/ PMHx: HTN, HLD, GERD, OA, Anxiety and Depression who presented to the [facility] ED on 05/26/18 with history of slipping on the ice while walking, aggressively twisting her right ankle with notable debility, pain and edema following complicated by left post-op shoe in place with JEANNIE wrap secondary to prior hallux varus surgery by Dr. Arias in addition to recent left third toe small distal phalanx surgery with suture in place approximate 5 weeks prior who presents to the [facility] ED on 05/26/18 secondary to slipping on the ice with R ankle deformity, debility and pain following. Plain film noting comminuted distal fibular fracture and posterior malleolus fracture of the tibia with dislocation with ED procedural sedation and reduction with Ortho-Glass splint placement and post reduction films demonstrating appropriate reduction. Patient admitted to MS, pending vitamin D level, NWB to RLS, continue L boot per Dr. Arias discretion, offloading ankle RLE, elevation RLE, monitor I/Os, frequent positioning, fall precautions, pain, anti-emetic regimen. PT/OT, CM consulted for discharge planning. 05/29/18 OR Open Reduction Internal Fixation of Right Trimalleolus Equivalent Ankle Fracture. Patient with pain controlled, continued aggressive elevation with treatment with pain regimen. 05/30/18 early 1:30 am with noted slurred speech, concern for mental status change and grogginess with concern for possible CVA, initial concern secondary to mild L eyelid droop; however, this is chronic and was unchanged but not known that time per evaluating physician therefore to be cautious, patient transitioned to PCU. CT head obtained and no acute findings obtained, discussed case with Neurology, recommended baby asa addition in interim but felt likely not CVA, obtained MRI brain/MRA head and neck with no acute evidence of stroke with as expected signal distortion artifact in the left sylvian fissure and suprasellar region seconda ry to clipping and endovascular coiling, MRA head with limited signal obliteration of the cavernous left internal carotid artery, left supraclinoid ICA, left M1 segment, left A1 segment and anterior pericalyceal arteries otherwise visualized intercranial vessels with no suspicious aneurysm or vaso- occlusive disease, MRA of the head with normal bilateral cervical carotid and vertebral arteries. Given normal MRI and MRA head and neck unremarkable per discussion with neurology was cleared for transition to [facility] facility as felt likely secondary to narcotic and recent anesthetic regimen. Patient clinically completely resolved and improved with no further concerning findings neurologically. Upon discharge to [facility] facility per discussion with podiatry continued recommendation of nonweightbearing to the right lower extremity, elevation of right lower extremity, plan follow-up with podiatry within 1 week, dressing to remain clean and dry and intact to be removed at fol low-up only with podiatry as well as continuation of DVT prophylaxis until discontinuation per podiatry. Patient discharged to [facility] in stable improved condition with follow-up with podiatry and her primary care physician. Patient Problems: Active and Suspected Problems Closed right ankle fracture (Acute) - Physical Exam Vital Signs Temp Pulse Resp BP Pulse Ox 99.1 F 78 16 119/62 100 05/30/18 13:15 05/30/18 13:15 05/30/18 13:15 05/30/18 13:15 05/30/18 13:15 Oxygen Flow Rate (L/min) [1 ( 4 Initial Baseline)] Oxygen Flow Rate (L/min) 4 Oxygen Delivery Method [2] Nasal Cannula Oxygen Delivery Method [1 ( Nasal Cannula Initial Baseline)] Oxygen Delivery Method Room Air Weight: 161 lb Body Mass Index (BMI) 28.5 Finger Stick Blood Glucose 138 Intake and Output for Last 24 Hours 05/28/18 05/29/18 05/30/18 23:59 23:59 23:59 Intake Total 2596 / 2596 2521 / 2521 Output Total 650 / 650 700 / 700 Balance 1946 / 1946 1821 / 1821 Laboratory Tests Past 24 Hrs 05/30/18 05/30/18 06:07 06:07 WBC 11.5 H RBC 3.66 L Hgb 11.2 L Hct 34.1 L MCV 93.2 MCH 30.6 MCHC 32.8 RDW 12.4 RDW Differential 42.4 Plt Count 259 MPV 8.3 Immature Gran % (Auto) 0.200 Neut % (Auto) 74.8 H Lymph % (Auto) 12.7 L Cook % (Auto) 11.9 H Eos % (Auto) 0.3 Baso % (Auto) 0.1 Absolute Neuts (auto) 8.6 H Absolute Lymphs (auto) 1.46 Total Counted Not Reportable Sodium 140 Potassium 3.9 Chloride 105 Carbon Dioxide 25.0 Anion Gap 10 BUN 12 Creatinine 0.91 Estim Creat Clear Calc 46.23 Est GFR (MDRD) Af Amer 78 Est GFR (MDRD) Non-Af 65 BUN/Creatinine Ratio 13.2 Glucose 132 H Calcium 7.6 L POC Glucose 05/30/18 01:52 POC Glucose 138 H Home Medications: Medications to take at Discharge Aromatic Cascara Fluid Extract [Cascara [place]] 1,350 mg PO QHS 07/07/15 Cholecalciferol (Vitamin D3) [Vitamin D3] 5,000 unit PO DAILY 07/07/15 Estradiol [Estrace (G)] 1 mg PO DAILY 07/07/15 Flaxseed Oil/[place] 3,6,9 [Sv Flaxseed Oil 1,300 mg Sftgl] 1 each PO BID 07/07/15 Folic Acid 0.4 mg PO DAILY@0800 07/07/15 Glucosam/Chondr-Msm6/Manganese [Glucosamine-Chondroitin Sftgl] 1 each PO DAILY 07/07/15 Lunarich 2 tab PO BID 07/07/15 Magnesium 250 mg PO DAILY 07/07/15 Niacin 100 mg PO DAILY 07/07/15 Red Yeast Rice 600 mg PO QHS 07/07/15 Tumeric 1 tab PO BID 07/07/15 Vitamin A 10,000 unit PO DAILY 07/07/15 Vitamin E 1,000 unit PO DAILY 07/07/15 Omeprazole [Prilosec] 20 mg PO DAILY 08/11/17 Lactulose 10 gm PO BID PRN #1 bottle 08/18/17 Atenolol 25 mg PO BID 05/26/18 Biotin 1 mg PO DAILY 05/26/18 Reliv 1 tab PO 4X/DAY 05/26/18 Zolpidem Tartrate 10 mg PO QHS 05/26/18 Nortriptyline HCl 150 mg PO QHS 05/27/18 Acetaminophen [Tylenol Tablet] 650 mg PO Q6H PRN PRN tablet 05/29/18 Enoxaparin [Lovenox] 40 mg SC DAILY@1000 syringe 05/29/18 Hydrocodone Bitart/Apap 5-325 [[place] 5/325] 1 - 2 tab PO Q4H PRN PRN 2 Days #20 tab 05/29/18 Mag Hydrox/Al Hydrox/Simeth [Mylanta II] 30 ml PO Q6H PRN PRN udc 05/29/18 Magnesium Hydroxide [Milk Of Magnesia] 30 ml PO DAILY PRN PRN udc 05/29/18 Ondansetron [Zofran] 8 mg PO Q8H PRN PRN #20 tablet 05/29/18 Following Prescrptions Were Given to Patient: Hydrocodone Bitart/Apap 5-325 [[place] 5/325] 1 - 2 tab PO Q4H PRN PRN 2 Days #20 tab PRN Reason: Moderate-severe pain Ondansetron [Zofran] 8 mg PO Q8H PRN PRN #20 tablet PRN Reason: nausea, emesis Primary Care Physician: Radha Chang MD [Primary Care Provider] - Please follow up with your Primary Care Physician in: Follow-up within 3-5 days hosp d/c and within 1-2 days SNF d/c. Please Follow Up With: Ruiz Arias DPM When: Follow-up 1 week. Earlier if concerns. Call with questions. Disposition: Longterm facility Minutes spent on discharge:: 35 Patient Condition:: Fair Medical Necessity - Tobacco Use Smoking Status: Never smoker Tobacco Use: Non-smoker Meaningful Use Info Meaningful Use Diagnoses (Choose all that apply): None applicable Code Visit Inpatient E&M: 61944 Disch Hosp
--- NOTE | 2018-05-30 15:42 | PCA ---
Spoke with pt son Tushar on the phone and notified him of D/C and pickup time, daughter is in the room so she is aware as well. Faxed D/C instructions to [facility].
--- NOTE | 2018-05-30 16:31 | NURSING ---
Daughter requesting to speak with physician regarding MRI results. Daughter had been made aware by nursing that results were negative, but she insists she speak with a physician. This nurse informed patient's primary nurse of same. Per primary nurse, please speak with primer charger to see if Dr. Michelle would come speak with daughter. This nurse spoke with primer charger informing her that although daughter was informed that the MRI results were negative, she would still like to speak with the physician. director of health education states she will try to contact Dr. Michelle. Daughter made aware of same.
== END 2018-05-30 09:21 | disposition skilled nursing facility (03) ==
LOC: ED 13:58 → MS3 17:08 → PCU 05-30 02:01
PROVIDERS: Podiatrist; Admitting Provider Hospitalist; Emergency Provider Emergency Medicine; Family Provider Internal Medicine; PCP Internal Medicine; Referring Provider Hospitalist; Visit Provider Family Medicine
PROC: (CPT 27822; principal; 2018-05-29 10:45)
DX: S82.851A Displaced trimalleolar fracture of right lower leg, initial encounter for closed fracture (principal); W00.0XXA Fall on same level due to ice and snow, initial encounter; Y93.01 Activity, walking, marching and hiking; Y92.9 Unspecified place or not applicable; R47.81 Slurred speech; E78.5 Hyperlipidemia, unspecified; K59.09 Other constipation; F32.9 Major depressive disorder, single episode, unspecified; F41.9 Anxiety disorder, unspecified; K21.9 Gastro-esophageal reflux disease without esophagitis; Z79.899 Other long term (current) drug therapy; I10 Essential (primary) hypertension; M19.90 Unspecified osteoarthritis, unspecified site; G62.9 Polyneuropathy, unspecified; L97.529 Non-pressure chronic ulcer of other part of left foot with unspecified severity; H02.402 Unspecified ptosis of left eyelid; Z86.79 Personal history of other diseases of the circulatory system
CPT/HCPCS: 27788; 27822; 29515; 36415; 70450; 70544; 70547; 70551; 73600; 73610; 73700; 76000; 76377; 80048; 80053; 82306; 82652; 82962; 83735; 85025; 85610; 85730; 93005; 96361; 96365; 96366; 96372; 96375; 97162; 97165; 97530; 99152; 99218; 99285; C1713; J7030; A4216; G0378; J2405

== ENCOUNTER 2019-01-12 11:06 | Outpatient (RCR) | payer MEDICARE, SELFPAY ==
[2018-05-30 15:24] VITALS: BMI 28.5
--- NOTE | 2019-01-12 15:01 | HP.OTEVAL_ITS ---
Patient's Visit Information QUINCY KRAUSE is a 73 year old F, referred to Occupational Therapy by Asif Awan MD, with a diagnosis of right Dupuytrens. Date of Evaluation: 01/12/19 Occupational Therapist: LUCIANO Thompson/Alex, CHT - Subjective Subjective: This 73 year old female was seen for OT eval with dx of right Dupuytren's contracture s/p 1 week s/p fascieotomy. pt states she has had difficulty with right LF Dupuytrens for years. pt arrives with soft sx dressing on- states no real pain but some discomfort at times when she is trying to get dressed or do her other daily living tasks. - ADLs Dressing: Bra, Pants, Socks, Shoes Fasteners: Buttons, Zippers, [place] Kitchen: Peel fruits & vegetables, Lift gallon of milk - Pain right hand 0 Pain Intensity Range: 0, 3 - ROM Wrist: right 75/70 left 75/70 MP: right LF -5/95 left LF 0/95 PIP: right LF -20/90 left LF 0/90 DIP: right LF +20/30 left LF 0/85 ROM Comments: pt demo with hyper-extensoin at DIP and PIP at slight flex at rest demonstrating a slight boutonniere deformity. ( pt indicates this has been present position for a long time) - Strength Pattern Attendant: right NT left 35# Lateral Pinch: right NT left 6# Tripod Pinch: right NT left 6# - Sensation Thumb: right 4.93 left 4.17 Index: right 4.93 left 4.17 Middle: right 4.93 left 4.17 Ring: right 4.93 left 4.17 Little: right 3.84 left 4.17 Sensation Comments: pt demo sensation deficits but inticates this was prior to sx. both hand demo with sensation limitations. - Goals Goal:100% adherence to protocol: Yes Comment: Dr. lindsay open fascieotomy protocol Goal:Daily scar massage when approriate: Yes Goal:ROM equal to unaffected hand: Yes Comment: to return to PLOF with ADLs and IADLS. Goal:Pattern Attendant/Pinch strength at least 75% of unaffected hand: Yes Comment: to perform daily home mtg and meal tasks. Goal:No pain with affected hand use: Yes Goal:Full use of affected hand in daily activities including: Yes Goal:Improvement in sensation documented by [place]riel: Yes - Rehabilitation General Assessment: pt 1 week s/p fascieotomy-Pt demo limited ROM and healing incision. Pt is unable to peform her ADLs and IADLs at a PLOF. pt demo need for skilled OT services 1x week for 4 weeks to loan. custom orthosis for night and while pt is recovering from her fascieotomy. Today therapist loan. night orthosis placing finger in slight flex at MP to straighten PIP and DIP- pt to return in one week to adj orthosis to gain more MP ext. keeping PIP and DIP in good alignment. Therapist will follow protocol by Dr. Lindsay following a open fascieotomy. Therapist ed. pt on Tendon glide ex, use of orthosis and to return of orthosis is irritating skin for adj. pt demo understanding and agree to POC. Rehabilitation Potential: Excellent - Anticipated Interventions Anticipated Interventions: A/AAROM/PROM, Strengthening, Edema Control, Scar Care, Desensitization, Sensory Retraining, Wound Care, Modalities, Orthoses, Ergonomic Education, Home Program - Visit Plan Frequency: 1x/Week Duration: 4 Weeks TEXT: Thank you for the opportunity to evaluate your patient. For Medicare and Medicare HMO plans, please review the plan of care and approve it. It will need to be FAXED BACK to us at [phone] for Medicare purposes. Please let me know if there are questions or concerns regarding this plan of care. Physician Signature: Date:
--- NOTE | 2019-05-12 10:24 | HP.OT.NRP ---
HP - Discharge Summary - Patient Information QUINCY KRAUSE was seen in my office for initial evaluation on 01/12/19. The following Plan of Care was established for this patient: Initial Frequency: 1x/Week Initial Duration: 4 Weeks - Anticipated Interventions Anticipated Interventions: A/AAROM/PROM, Strengthening, Edema Control, Scar Care, Desensitization, Sensory Retraining, Wound Care, Modalities, Orthoses, Ergonomic Education, Home Program This patient was last seen in our office 01/12/19. Pertinent comments regarding their Occupational therapy will appear below: PT was seen for orthosis loan. only- no further tx was needed. Pt d/c. At this point I will be discontinuing this patient from occupational therapy. I would be happy to see this patient again in the future if found appropriate by the physician. Thank you! Vielka Goss, OTR/L, CHT
== END 2019-01-12 19:00 | disposition home or self-care (01) ==
LOC: OT 11:06
PROVIDERS: Family Provider Internal Medicine; PCP Internal Medicine; Referring Provider Orthopaedic Surgery; Visit Provider Orthopaedic Surgery
DX: M72.0 Palmar fascial fibromatosis [Dupuytren] (principal)
CPT/HCPCS: 97166; 97760

== ENCOUNTER 2019-01-25 19:39 | Emergency (ER) | payer MEDICARE, SELFPAY ==
[2018-05-30 15:24] VITALS: BMI 28.5
[2019-01-25 19:40] VITALS: BP 160/64; PULSE 94; RESP 20; TEMP 36.6; O2SAT 100; BMI 28.0
--- NOTE | 2019-01-25 20:08 | ED.VISSUMM ---
- ER Visit Summary Date of Service: 01/25/19 Chief Complaint: Dizziness History of Present Illness: The patient is a 74 F with dizziness that started around 11 AM this morning. It feels like vertigo. Worse when turning her head and riding in the car. She tried taking meclizine, but vomited it up. She denies any new symptoms like hearing changes. Denies vision changes, speech changes, facial droop, weakness, numbness. Denies any recent illness. Denies any trauma. Denies any change in her medications. Patient has a history of aneurysms. She had an MRA in October of this year which showed no significant change. Patient is denying pain or any other symptoms. Physical Examination: Afebrile and vital signs unremarkable. HEENT exam unremarkable. Cranial nerves grossly intact. Good strength and sensation. No nystagmus is noted. Otherwise exam unremarkable. Test Results: None performed. I reviewed her most recent imaging. Emergency Department Course and Treatment: I suspect this is peripheral vertigo. The patient has a history of this. Although she has a history of brain aneurysms, she had a recent MRA which was unchanged. I do not believe further imaging would be useful. She is not having pain. No trauma. No focal neurologic findings. Nothing to suggest central vertigo. Patient was treated with IV fluids, Zofran, and Ativan. Will reassess. On reevaluation, patient is much improved. No further vertigo. No further vomiting. Patient will be discharged. She can continue meclizine as needed at home. Prescription for Zofran. Follow-up with her doctor. Return for any new or worsening issues. Treatment Plan: As above Disposition: Discharge Impression: 1. Vertigo This note was generated with [employer] dictation software. It may contain incorrect words, spelling, and punctuation that were not noted in review of the chart prior to signing ED Disposition - Plan for ED Patient: Referrals: Radha Chang MD [Primary Care Provider] -
[2019-01-25] MEDS: Ondansetron 4 MG/2 ML Vial IV (20:25)
[2019-01-25] MEDS: LORazepam 2 MG/ML Syringe 1 MG IV (20:25)
[2019-01-25] MEDS: 0.9% Normal Saline 1,000 ML 999 ML IV (20:25)
--- NOTE | 2019-01-25 21:24 | ED.DEP ---
ED Disposition - Plan for ED Patient: Instructions: VERTIGO, Unspecified Prescriptions: Meclizine HCl [Antivert] 25 mg PO TID PRN PRN #20 tab PRN Reason: Nausea Prescription Printed Ondansetron [Zofran Odt] 4 mg PO Q8H PRN PRN #10 tab PRN Reason: Nausea Prescription Printed Referrals: Radha Chang MD [Primary Care Provider] -
[2019-01-25 21:42] VITALS: BP 145/76; PULSE 71; RESP 16; O2SAT 98
== END 2019-01-25 21:43 | disposition home or self-care (01) ==
LOC: ED 20:12
PROVIDERS: Emergency Provider Emergency Medicine; Family Provider Internal Medicine; PCP Internal Medicine
DX: R42 Dizziness and giddiness (principal); I67.1 Cerebral aneurysm, nonruptured; K21.9 Gastro-esophageal reflux disease without esophagitis; I10 Essential (primary) hypertension; E78.00 Pure hypercholesterolemia, unspecified; F41.9 Anxiety disorder, unspecified; F32.9 Major depressive disorder, single episode, unspecified; Z79.899 Other long term (current) drug therapy
CPT/HCPCS: 96361; 96374; 96375; 99283; J7030; A4216; J2405

== ENCOUNTER → 2019-04-14 15:35 | Outpatient (CLI) | payer MEDICARE, SELFPAY ==
--- NOTE | 2019-04-14 15:46 | MRI_ITS ---
STUDY: MRI RIGHT ANKLE WITHOUT CONTRAST REASON FOR EXAM: Female, 74 years old. Posterior tibial tendon dysfunction. Fracture April 2018. TECHNIQUE: Standardized fat and water weighted pulse sequences were obtained in all 3 orthogonal planes. COMPARISON: X-ray May 29, 2018. FINDINGS: There is postoperative change in the soft tissues. There is susceptibility artifact associated with fixation plate and screws in the distal fibula and traversing across the tibiofibular syndesmosis. There are healed distal fibula and tibia fractures. There is nonunited fragment inferior to the medial malleolus. There is curvilinear diminished signal with bone infarct of the distal tibia. There is postoperative change of the medial calcaneus and the inferior talus. There is accessory navicular incorporated into the distal tibialis posterior tendon. There is tendinosis with partial tearing and lateral subluxation of the tibialis posterior at the level of the medial malleolus, series 3 images through . There is tendinosis of the flexor digitorum longus tendon. Normal flexor hallucis longus tendon. Normal peroneus longus and brevis tendons. Normal tibialis anterior tendon. Normal extensor hallucis longus tendon. Normal extensor digitorum longus tendons. Normal Achilles tendon and teno-osseous insertion. Normal plantar fascia. Normal plantar calcaneal tubercles. Normal intrinsic muscles of the rearfoot. Artifact partially obscures medial and lateral ligamentous structures. Small effusion and mild spurring at the tibiotalar articulation. Normal talar dome. Joint space narrowing with subchondral cyst at the subtalar articulations. Normal talonavicular articulation. Normal calcaneocuboid articulation. Normal navicular-cuneiform articulations. MRI/Lower Ext Joint Only (Routine) IMPRESSION: Postoperative changes including status post ORIF tibia and fibula fractures. Nonunited component inferior to the medial malleolus. Mild spurring. Tendinosis with tearing and lateral subluxation of the tibialis posterior. Electronically Signed: sAif Hernandez MD at 21:44 EST , Service support ,
== END ==
PROVIDERS: Family Provider Internal Medicine; PCP Internal Medicine; Referring Provider Podiatrist; Visit Provider Podiatrist
DX: M67.971 Unspecified disorder of synovium and tendon, right ankle and foot (principal)
CPT/HCPCS: 73721

== ENCOUNTER 2019-05-14 18:45 | Inpatient (IN) | payer MEDICARE, SELFPAY ==
[2019-05-14] VITALS (10 sets, daily range): BP systolic 114–145; BP diastolic 50–105; PULSE 66–85; RESP 15–16; TEMP 36.4–37; O2SAT 92–100; BMI 28.3; BMI 28.8
--- NOTE | 2019-05-14 | TESH_PTH ---
PATIENT: QUINCY KRAUSE LOC: [facility] U#:[id number] AGE/SX: 74/F ROOM: YDE609 RE05/14/[address]: Dr. Erlinda Palacios MD : [id number] BED: 1 DIS: 05/18/2019 SPEC #: [id number] RECD: 05/17/19 09:20 STATUS: PRAMOD REAna #: [id number] DAVID: 05/14/19 00:[address]: Ruiz Arias DEPT: SURGICAL PATHOLOGY RECD BY: Chandu Gerber ENTERED: 05/17/19 13:21 SP TYPE: TENDON OTHR DR: MD Dr. Ruiz Penny, DPM MD Dr. Allyson Morales MD Tissues: Tendon and tendon sheath, NOS Procedures: Surgery Specimen Level III Comments: @ Ordering doctor for SUIII edited from to @ by DAVID at 05/17/19 1528 @ Submitting doctor edited from to @ by FAYEOD at 05/17/19 1528 HEADER OPERATION: Debride/repair posterior tibial tendon with flexor digitorum PRE-OP DIAGNOSIS: Tear and dysfunction of posterior tibial tendon; pes planus foot deformity; third digit hammertoe TISSUE SUBMITTED: Posterior tibial tendon MICROSCOPIC DIAGNOSIS Posterior tibial tendon: Fragments of dense fibroconnective tissue with reactive changes. [place]:didi 05/18/19 MICROSCOPIC DESCRIPTION Slides are reviewed. GROSS DESCRIPTION Received in fixative is one container labeled with the patient's name and designated posterior tibial tendon. The specimen consists of multiple irregular fragments of light to dark jordan, indurated soft tissue ranging in size from 2 to 4.5 cm. Range Examiner sections are submitted in one cassette. / [place]:didi 05/17/19 TC:5 CPT: 44984
[2019-05-14] MEDS: Lactated Ringers 1,000 ML 100 ML IV ×4 (12:38→23:13)
--- NOTE | 2019-05-14 13:45 | RAD_ITS ---
STUDY: X-RAY - RIGHT TIBIA AND FIBULA REASON FOR EXAM: Female, 74 years old. REPAIR OF TIBIAL RT TIBIAL TENDON, 7 IMAGES, 2.35 mGy, 116.4 sec TECHNIQUE: 7 view(s) of the tibia and fibula were obtained. COMPARISON: None. FINDINGS: Multiple images were obtained intraoperatively for hardware localization. RAD/Tibia & Fibula 2 Views IMPRESSION: Images for hardware localization. Electronically Signed: Birgit Crawford MD at 20:36 EST Tel , Service support ,
[2019-05-14] MEDS: Cefazolin 2 GM in 0.9% Normal Saline 100 ML IV (13:51)
[2019-05-14] MEDS: Bupivacaine Mpf 0.5% 30 ML VIAL (18:36)
--- NOTE | 2019-05-14 18:50 | OP.PCM_ITS ---
Report of Operation Date of Procedure: 05/14/19 Pre-Operative Diagnosis: Posterior tibial tendon dysfunction with posterior tibial tendon tear, right. Pes planus foot deformity, right. 3rd digit hammer toe, right foot Post-Operative Diagnosis: Same, along with flexor digitorum longus tendon tear, right Surgery/Procedure Performed:: Debride/repair of posterior tibial tendon and flexor digitorum longus tendon, and repair of spring ligament, right. Flexor hallucis longus tendon transfer, right. Medial displacing calcaneal osteotomy, right. 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 Nia Coy and Dr. Jack Cárdenas Type of Anesthesia:: General Specimen's removed: Debrided posterior tibial and flexor digitorum longus tendons, right sent to pathology together Estimated Blood Loss (mL): 100mL Description of Procedure: Indications: This is a 74 year old female has symptomatic difficulty with gait/ambulation and pes planus foot deformity due to posterior tibial tendopathy/dysfunction. She has history of flatfoot, also had severe dislocated trimalleolar ankle fracture last year s/p ORIF. Ankle is doing well, but she has difficulty with gait/ambulation as noted above. Pre operative MRI showed tear of the posterior tibial tendon. She also has hammer toes and would like the 3rd digit hammer toe corrected. She has requested and elected to undergo surgical intervention as noted above. The procedures were reviewed with her, reviewed the rationale of the procedures as well as the possible benefits, risks, goals, expectations, alternative options, and typical healing/post operative recovery course. This was discussed with her in detail, she expressed understanding and agreement, she elected to proceed forward. All of her questions were answered. The consent forms were reviewed with her, and she freely signed them. No guarantees were given nor implied. Operative Procedure: The patient was brought back into the operating room. The patient was placed on the operating table in the supine position. Patient was carefully secured to the operating room table with a safety belt around her wais t. The patient received general anesthesia per the anesthesia team. A time out was performed and the patient was properly identified and the surgical plan was confirmed. The patient received 2 grams of intervenous Cefazolin for antibiotic prophylaxis. A well padded pneumatic tourniquet was applied around the patient's right thigh. The right lower extremity was scrubbed, prepped, and draped in the usual aseptic fashion. Attention was directed to the right foot, there was noted to be Stage 2 flexible pes planovalgus present. The right foot was elevated for 3 minutes and the right thigh pneumatic tourniquet was inflated to 300mmHg. Calcaneal osteotomy: Attention was directed to the hindfoot. An oblique linear skin incision was made to the lateral aspect of the heel overlying the calcaneal wall. Careful direction was completed down to the lateral calcaneal wall being sure to avoid the sural nerve and peroneal tendons. A calcaneal osteotomy was planned, and was made using a powered sagittal saw, going through the body of the calcaneus from lateral to medial and from posterior proximal to anterior distal. The osteotomy was finished with an osteotome through the medial wall of the calcaneus being sure to avoid the medial tendons and neurovascular bundle. The posterior calcaneus was gently freed up and translated medially. Clinically it was displaced medially. It was fixated using two cannulated 5.0mm Arthrex screw. A small skin incision was made to the posterior heel with careful dissection completed down to the cortex of the calcaneus. These were placed using standard rigid open reduction internal fixation technique. The osteotomy was very stable with good fixation, there was good bone to bone compression. Proper placement of the screws were confirmed using intra operative fluoroscopy. The ledge of bone on the lateral calcaneal wall at the level of the osteotomy was gently smoothed down. The sites was flushed out with copious amounts of normal saline solution. The subcutaneous tissue was reapproximated using 3-0 Vicryl. The skin was reapproximated using 3-0 Nylon. Posterior tibial tendon debridement/repair: Attention was directed to the medial foot and ankle. A curvilinear skin incision was made along the course of the posterior tibial tendon from the medial ankle to just distal to the navicular tuberosity. Careful dissection was completed through the subcutaneous tissue to the flexor retinaculum which was noted to be attenuated and torn. The posterior tibial tendon sheath was visible and severely scarred with significant adhesions. It was opened with a dissection scissor. The posterior tibial tendon was visualized, there was severe tendinosis with significant hypertrophy. It was also noted the tendon was displaced and not sitting in the medial malleolar groove. There was noted to be significant tearing and fraying of the tendon. The tendon was attenuated as well, and there was a segment at the level of the medial malleolus tip that it was torn transversely with very minimal fibers attaching end to end. It was intact at it's insertion point on the navicular tuberosity. The posterior tibial tendon was debrided of unhealthy tissue with a 15 scalpel blade, and the debrided tissue was sent to pathology. The frayed edges were debrided using a 15 blade. The tearing of the posterior tibial tendon was thoroughly repaired, and the tendon was properly tensioned and tubularized using 2 Fiberwire. Flexor digitorum longus tendon debridement/repair: Attention was directed to the flexor digitorum longus tendon. The flexor digitorum longus tendon sheath was visualized and incised/opened using a dissecting scissor. There was noted to be significant adhesion and scar tissue. The tendon was also noted to be completely ruptured and frayed at the level of the medial malleolus. There was tendinosis to the flexor digitorum longus tendon. The tendon was attenuated as well. The tendon was debrided of unhealthy tissue with a 15 scalpel blade, and the debrided tissue was sent to pathology with the debrided posterior tibial tendon. The frayed edges were debrided using a 15 blade. The tearing of the tendon was thoroughly repaired, and the tendon was properly tensioned and tubularized using 2 Fiberwire. The posterior tibial tendon and the flexor digitorum longus tendons were tenodesed together. The groove of the medial malleolus was deepened using a bone bur. The tenodesis posterior tibial tendon and flexor digitorum longus tendons were placed into the deepened medial malleolus groove. The flexor hallucis longus tendon transfer was completed as noted below, however prior to closure, the flexor retinaculum was recreated and repaired using two Arthrex suturetaks. The suturetaks were placed into the medial malleolus and the suture was passed through available remaining flexor retinaculum tissue and was brought up to secure the tenodesed posterior tibial and flexor digitorum longus tendons in the deepened medial malleolar groove, and securing the flexor hallucis longus tendon in the tarsal tunnel. Flexor hallucis longus tendon transfer: Attention was directed to the flexor hallucis longus tendon sheath, the sheath was incised. The tendon was healthy, viable and intact. The tendon was freed up and related at the level of the plantar arch of the foot. It was also noted there was spring ligament insufficiency, it was overall intact but insufficient due to chronic pes planus/posterior tibial tendon dysfunction. The spring ligament was tightened and augmented/repaired using an Arthrex internal brace, in which the 3.5 Swivelock anchor was placed into the sustentaculum hussain. A guide wire was placed and then a 5mm drill hole was placed through the navicular starting from plantar medial and exited dorsal and more lateral. Proper placement of the drill hole was confirmed using intra operative fluoroscopy. A whip stitch was placed to the flexor hallucis longus tendon using FiberWire. The flexor hallucis longus tendon (routed from plantar to dorsal) as well as the two arms of the FiberTape Internal brace suture (in which the FiberTape was routed to create the hammock effect augmenting the spring ligament with the Fibertape) was routed through the drill hole in the navicular and pulled to the appropriate tension with good plantarflexed and inverted, and a 4.75mm Arthrex tenodesis screw was placed holding the flexor digitorum longus tendon in/to the navicular for the transfer, as well as holding the two arms of the FiberTape. The two arms of the Fibertape were placed deep to the posterior tibial and flexor digitorum longus tendons. It was holding very well and in good position. The foot was in good position. The site was flushed out with copious amounts of normal saline solution. The tendon sheaths were reapproximated using 3-0 Vicryl. The subcutaneous tissue was reapproximated using 3-0 Vicryl. The skin was reapproximated using 3-0 Nylon. The foot was loaded, and it was noted the foot was in good alignment with proper correction. There was good and normal talar head coverage with gnosticist of the medial longitudinal arch. There was smooth normal range of motion of the foot and ankle, with no popping, clicking or crepitus noted. Gastrocsoleus equinus was not present as there was good smooth and normal range of motion to the ankle. There was no instability to the foot or ankle at this time. There was negative anterior drawer and normal talar tilt to the ankle, normal inversion and eversion of the hindfoot with excellent stability present. Alignment was very good. Due to this a Cotton/1st cuneiform osteotomy and placement of bone graft was not performed. Right 3rd digit hammer toe: Attention was directed to the 3rd toe on the right foot. The toe was a claw toe, contracted at both the distal and proximal interphalangeal joints. A dorsal linear longitudinal incision was made over the distal interphalangeal joint (DIPJ) and proximal interphalangeal joint (PIPJ) of the toe. An incision was made longitudinally to the extensor digitorum longus tendon and split down the middle, leaving the ends intact, this was done with a 15 blade. The interphalangeal joint capsule was incised with a 15 blade. The cartilage from the interphalangeal joints were prepped, removing the cartilage using power sagittal saw as well as a bone cutting rongeur. The head of the proximal phalanx was removed as well. The site was flushed out with copious amounts of normal saline solution. An Arthrex FT compression screw was placed through the distal and middle phalanges of the toe holding the toe in rectus position. This was confirmed with intra operative fluoroscopy. The extensor tendon was attenuated, it was properly tensioned using 3-0 Vicryl. The site was again flushed out with copious amounts of normal saline solution. The toe was now in a rectus position. A total of 20mL of 0.5% Bupivacaine plain was given as a local block around the surgical sites to help with pain control. A dressing was applied which consisted of Betadine soaked adaptic, 4x4 gauze, Kerlix, jorge bandage and a well padded below knee posterior splint secured with jorge bandages. Also of note prior to closure and bandage/splint placement the right thigh pneumatic tourniquet was deflated and there was immediate return of warmth to the foot and ankle. The tourniquet was inflated for 120 minutes, let down for 6 minutes, reinflated for 35 minutes and was deflated again and left deflated the rest of the case. At end of the operative procedure there was normal color and temperature to the foot and ankle, CFT < 2 seconds to all toes. Hemostasis was achieved and bleeding was controlled. The patient tolerated the above operative procedure well and the anesthesia well with no complications. The patient was transported from the operative room to the recovery room with vital sign stable and in good condition. Post operative orders were placed. Post operative instructions were reviewed with patient and her daughter who was with her today. The patient will be admitted for post op pain control, observation and nursing facility placement. Keep feet elevated for at least 50 minutes of every hour, keep dressings clean, dry, and intact. No weightbearing right foot. Post operative xrays were obtained the the recovery room, 3 view foot. These images were reviewed which confirmed calcaneal osteotomy with screw fixation intact, proper placement of the screw and good bone to bone contact. There is noted drill hole through the navicular for the tendon transfer. There is correction of 3rd digit hammer toe with intact screw. No evidence of complications. Grafts/Implants Used: 2 x Arthrex 5.0 calcaneal screws,internal brace, tenodesis screw,suturetaks - Complications None
--- NOTE | 2019-05-14 18:55 | PCM.PN.HOSP ---
Objective: Patient is a 74-year-old who was admitted to the podiatry service on 05/14/2019 for debridement and repair of right posterior tibial tendon. Hospitalist service was consulted for medical management. Patient was seen in PACU. Patient was alert but would barely answer when asked questions. She was just staring into space with her mouth open. She would hear when called but would not really be answering questions. According to nurses, they did not see her before her surgery and so they did cannot tell whether that was her baseline. Unable to do review of systems o/a of patient not responding to questions. Per podiatry, she has a history of brain aneurysm s/p surgery, and follows with neurosurgery, and also has hypertension. Per discussion with podiatry, during her previous surgery and generally 2018, she had a similar reaction after surgery and there was concern for slurred speech and altered mental status. CT of the head was obtained at that time and was negative and MRI of the brain was negative for stroke as well. As symptoms then were thought to be due to narcotics and anesthesia. She subsequently clinically improved. On review in PACU, vitals were significant for temperature of 97.5 Fahrenheit with blood pressure 118/50 and pulse rate of 78 as well as respiratory rate of 16. Hospitalist service has been consulted for medical management. Vitals/I&O's: Vital Signs Temp Pulse Resp BP Pulse Ox 97.6 F L 71 15 132/64 H 100 05/14/19 12:19 05/14/19 12:19 05/14/19 12:19 05/14/19 12:19 05/14/19 12:19 Oxygen Delivery Method Room Air Weight: 162 lb 7.691 oz Body Mass Index (BMI) 28.3 Finger Stick Blood Glucose 138 General: Alert, Confused, Lethargic, - - patient just staring out with her eyes wide open and mouth open, able to close mouth when told to, and mumbles when her name is mentioned HEENT: Atraumatic, PERRLA, EOMI, Normocephalic Oral: Dry Mucosa Neck: Supple, No JVD, Negative Carotid Bruits Lungs: Clear to auscultation, Normal air movement, No rhonchi, No wheeze, No rales Cardiovascular: Regular rate, Regular Rhythm, Normal S1, Normal S2, No murmurs Abdomen: Bowel Sounds Present, Soft, Non Tender, Non-Distended, No Hepato-splenomegaly Extremities: No clubbing, No cyanosis, No edema, Capillary Refill Less than 3 Seconds Skin: No rashes, No breakdown Musculoskeletal: - - RLE in cast, and bandaged Neurological: Cranial nerves II-XII grossly intact, - - patient alert, moves upper limbs spontaneously, no mouth droop or facial paralysis; not verbally responsive and only mumbles when her name is mentioned. Psych/Mental Status: Flat Affect Current Medications Lactated Ringer's () 1,000 mls @ 100 mls/hr IV .Q10H [facility] Last Admin: 05/14/19 12:38 Dose: 100 mls/hr Documented by: Cefazolin Sodium () 1 gm in 50 mls @ 100 mls/hr IV Q8 [facility] Stop: 05/15/19 14:29 Medical Necessity - Tobacco Use Smoking Status: Never smoker Tobacco Use: Non-smoker Assessment/Plan All Active Problems Closed right ankle fracture (Acute) 74 y/o admitted for right debridement and repair of posterior tibialis tendon 1. Debridement and repair of right posterior tibialis tendon admit to PCU today is POD 0 management as per podiatry to limit narcotics in light of patient's altered mental status, which is similar to what happened the last time she had foot surgery in April 2018,a nd was thought to be due to effect of narcotics and anesthectic meds. PT/OT consult. 2. Acute metabolic encephalopathy likely due to anesthesia and pain meds patient is alert but is just lying down staring out to him mouth wide open. She is able to close her mouth on her own and is blinking spontaneously and is moving her upper extremities spontaneously. When her name is mentioned, she turns in the direction of voice and mumbles and nods when asked if she can hear us. There is no facial droop. EMR was reviewed and she had a similar reaction in April 2018 when she had foot surgery. At that time CT of the brain was negative for stroke and MRI and MRA of the brain done were negative for stroke. Neurology was consulted then and felt that his symptoms were likely due to anesthesia and narcotics effect. Recommended to primary service podiatry that patient should be transferred to PCU for closer monitoring overnight due to her current metabolic encephalopathy. Limit narcotics as possible. If patient's metabolic encephalopathy worsens, will recommend to get a stat CT of the brain. 3. History of cerebral aneurysm s/p surgery stable. Follows with neurology and neurosurgery 4. Hypertension: on atenolol. BP was 119/50 at time of review DVT prophylaxis: defer to primary service- podiatry Disposition: Will likely need placement. To consult PT OT. Thank you for the courtesy of the consult. We will continue to follow with you. Do not hesitate to reach out to hospitalist team if you have any questions. Code Visit Inpatient E&M: 39371 Subs Hosp L3
--- NOTE | 2019-05-14 19:10 | RAD_ITS ---
STUDY: X-RAY - RIGHT FOOT CLINICAL: Female, 74 years old. POST OP TECHNIQUE: 3 view(s) of the foot. COMPARISON: Intraoperative study 05/14/2019. FINDINGS: Status post surgery with lateral fibular plate and screws, transverse screws in the tibia. Calcaneal osteotomy and screw fixation, and arthrodesis of the third middle and distal phalanges. There is no acute fracture. Lucent defect in the navicular bone consistent with prior internal fixation or bone harvest. Joint spaces are well-maintained. Alignment is anatomic. Soft tissues and bony structures are otherwise unremarkable. RAD/Foot min 3 Views IMPRESSION: Anatomic alignment status post multiple orthopedic procedures. Electronically Signed: Birgit Crawford MD at 23:54 EST Tel , Service support ,
--- NOTE | 2019-05-14 19:42 | PCM.HP.STD ---
History of Present Illness Date of Admission: 05/14/19 Chief Complaint: Post op right foot surgery The patient is a 74 year old female admitted for post op Debride/repair of posterior tibial tendon and flexor digitorum longus tendon, and repair of spring ligament, right. Flexor hallucis longus tendon transfer, right. Medial displacing calcaneal osteotomy, right. Right 3rd toe arthrodesis/correction of hammer toe deformity. Patient has been admitted for post op management, also will need nursing placement. Surgery went well. Patient in recovery. I did speak and reviewed with Dr. White, hospitalist to help with medical management. Past Medical History Past Medical History (Chronic Problems): Chronic Problems HTN (hypertension) (Chronic) Anxiety and depression (Chronic) HLD (hyperlipidemia) (Chronic) Chronic constipation (Chronic) Osteoarthritis (Chronic) GERD (gastroesophageal reflux disease) (Chronic) Brain aneurysm (Chronic) Allergies codeine Adverse Reaction (Verified 05/14/19 12:18) Nausea fluoxetine HCl [From Prozac] Adverse Reaction (Verified 05/14/19 12:18) shivers morphine Adverse Reaction (Verified 05/14/19 12:18) Nausea Home Medications: Ambulatory Orders Medication Instructions Recorded Cholecalciferol (Vitamin D3) 5,000 unit PO DAILY 07/07/15 [Vitamin D3] Estradiol [Estrace (G)] 1 mg PO DAILY 07/07/15 Flaxseed Oil/Forsan 3,6,9 [Sv 1 each PO BID 07/07/15 Flaxseed Oil 1,300 mg Sftgl] Folic Acid 0.4 mg PO DAILY@0800 07/07/15 Glucosam/Chondr-Msm6/Manganese 1 each PO DAILY 07/07/15 [Glucosamine-Chondroitin Sftgl] Lunarich 2 tab PO BID 07/07/15 Magnesium 250 mg PO DAILY 07/07/15 Niacin 100 mg PO DAILY 07/07/15 Red Yeast Rice 600 mg PO QHS 07/07/15 Tumeric 1 tab PO BID 07/07/15 Vitamin A 10,000 unit PO DAILY 07/07/15 Vitamin E 1,000 unit PO DAILY 07/07/15 Omeprazole [Prilosec] 20 mg PO DAILY 08/11/17 Atenolol 25 mg PO BID 05/26/18 Biotin 1 mg PO DAILY 05/26/18 Zolpidem Tartrate 10 mg PO QHS PRN 05/26/18 Nortriptyline HCl 150 mg PO QHS 05/27/18 Acetaminophen [Tylenol Tablet] 650 mg PO Q6H PRN PRN tablet 05/29/18 Meclizine HCl 25 mg PO Q6H PRN PRN 01/25/19 Relive Now 1 pkt PO DAILY 05/07/19 Surgical History: - - 06/2015 first metatarsal osteotomy bunionectomy, second metatarsal osteotomy, repair second metatarsal phalangeal joint plantar plate, second toe arthrodesis, flexortenotomy of third and fourth toes, recent left third toe in office debridement approximate 5 weeks prior, tonsillectomy, history of tubal with left salpingo-oophorectomy and appendectomy, follow-up hysterectomy and right salpingo-oophorectomy, tummy tuck, bilateral vein stripping lower extremities, brain aneurysm History of Brain Aneurysm x 4 (s/p coiling, clipping x 2, wrapping). 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, Depression [employer] History: ectopic , endometriosis Smoking Status: Never smoker Tobacco Use: Non-smoker - *Family History Maternal History Items: Hypertension Paternal History Items: Hypertension VTE Information - Inpt Only VTE Present on Admission: No VTE Pharm Prophylaxis ordered?: Yes - Physical Exam Vitals/I&O's: Vital Signs Temp Pulse Resp BP Pulse Ox 97.5 F L 74 16 119/75 92 05/14/19 18:57 05/14/19 19:30 05/14/19 19:30 05/14/19 19:30 05/14/19 19:30 Oxygen Delivery Method Room Air Weight: 73.7 kg Body Mass Index (BMI) 28.3 Finger Stick Blood Glucose 138 Intake and Output for Last 24 Hours 05/12/19 05/13/19 05/14/19 23:59 23:59 23:59 Intake Total 1000 / 1000 Balance 1000 / 1000 Current Medications Acetaminophen (Tylenol) 650 mg PO Q6H PRN PRN PRN Reason: Pain Score 1-10/10 Enoxaparin Sodium (Lovenox) 40 mg SC DAILY@0600 [facility] Hydromorphone HCl (Dilaudid Inj) 1 mg IV Q3H PRN PRN PRN Reason: Pain Score 6-10/10 Lactated Ringer's () 1,000 mls @ 100 mls/hr IV .Q10H [facility] Last Admin: 05/14/19 19:10 Dose: 100 mls/hr Documented by: Cefazolin Sodium () 1 gm in 50 mls @ 100 mls/hr IV Q8 [facility] Stop: 05/15/19 14:29 Ondansetron HCl (Zofran) 4 mg IV Q8H PRN PRN PRN Reason: Nausea Oxycodone HCl (Oxyir) 5 mg PO Q4H PRN PRN PRN Reason: Pain Score 3-10/10 Senna/Docusate Sodium (Senokot-S, Lynne-Colace) 1 tablet PO DAILY PRN PRN Reason: CONSTIPATION Assessment/Plan All Active Problems Closed right ankle fracture (Acute) Posterior tibial tendon dysfunction with posterior tibial tendon tear, pes planus and 3rd digit hammer toe all right foot s/p Debride/repair of posterior tibial tendon and flexor digitorum longus tendon, and repair of spring ligament, right. Flexor hallucis longus tendon transfer, right. Medial displacing calcaneal osteotomy, right. Right 3rd toe arthrodesis/correction of hammer toe deformity on 05/14/2019 Nonweightbearing right foot, keep foot elevated at all times and heel offloaded. Keep dressing clean, dry and intact. Pain management: Acetaminophen, Oxyir, and Dilaudid. Antibiotic prophylaxis: Cefazolin 1g q 8 hrs for 3 doses post op to help prevent infection. DVT prophylaxis: Lovenox 40mg once daily, starting on 05/14/19. Hospitalist/medicine team consulted to help with medical management. Greatly appreciate assistance.
[2019-05-14] MEDS: Nortriptyline 25 MG Capsule 150 MG PO (23:05)
[2019-05-14] MEDS: Atenolol 25 MG Tablet PO (23:05)
[2019-05-14] MEDS: Cefazolin 1 GM/50 ML BAG IV (23:08)
[2019-05-15] VITALS (11 sets, daily range): BP systolic 91–116; BP diastolic 46–58; PULSE 78–87; RESP 14–18; TEMP 36.4–37.1; O2SAT 95–97; BMI 28.8
[2019-05-15] MEDS: Enoxaparin 40 MG/0.4 ML Syringe SC (06:04)
[2019-05-15] MEDS: Cefazolin 1 GM/50 ML BAG IV ×2 (06:04→13:10)
--- NOTE | 2019-05-15 07:35 | PCM.PROGNOTE ---
Patient Problems: Active and Suspected Problems Posterior tibial tendinitis of right lower extremity (Acute) Tibialis posterior tendinopathy (Acute) Subjective: Patient was seen this morning for follow up on right foot surgery. She is resting comfortably in bed. Did well overnight. She relates she has no pain. No complaints of fever, chills, nausea, vomiting or any other complaints at this time. Objective: Dressing/splint clean, dry and intact right foot/ankle/leg, patient able to wiggle toes on right foot, there is no pain. No suspicion for infection or DVT at this time. - Physical Exam Vitals/I&O's: Vital Signs Temp Pulse Resp BP Pulse Ox 98.5 F 86 14 104/50 L 96 05/15/19 04:30 05/15/19 04:30 05/15/19 04:30 05/15/19 04:30 05/15/19 04:30 Oxygen Delivery Method Room Air Weight: 73.7 kg Body Mass Index (BMI) 28.8 Finger Stick Blood Glucose 138 Intake and Output for Last 24 Hours 05/13/19 05/14/19 05/15/19 23:59 23:59 23:59 Intake Total 2500 / 2740 935 / 935 Output Total 1950 / 1950 Balance 2500 / 1440 -1015 / -1015 General: Alert, Oriented x3, Cooperative, No apparent distress Extremities: Capillary Refill Less than 3 Seconds - Dressing/splint clean, dry and intact right foot/ankle/leg, No Calf Tenderness, - Current Medications Acetaminophen (Tylenol) 650 mg PO Q6H PRN PRN PRN Reason: Pain Score 1-10/10 Atenolol (Tenormin (Beta King)) 25 mg PO BID [facility] Last Admin: 05/14/19 23:05 Dose: 25 mg Documented by: Enoxaparin Sodium (Lovenox) 40 mg SC DAILY@0600 [facility] Last Admin: 05/15/19 06:04 Dose: 40 mg Documented by: Estradiol (Estrace (G)) 1 mg PO DAILY [facility] Hydromorphone HCl (Dilaudid Inj) 1 mg IV Q3H PRN PRN PRN Reason: Pain Score 6-10/10 Lactated Ringer's () 1,000 mls @ 100 mls/hr IV .Q10H [facility] Last Infusion: 05/15/19 06:34 Dose: 100 mls/hr Documented by: Cefazolin Sodium () 1 gm in 50 mls @ 100 mls/hr IV Q8 [facility] Stop: 05/15/19 14:29 Last Infusion: 05/15/19 06:34 Dose: Infused Documented by: Sodium Chloride () 250 mls @ 15 mls/hr IV .[id number] PRN PRN Reason: Saline Flush Sodium Chloride () 250 mls @ 15 mls/hr IV .[id number] PRN PRN Reason: Additional IVPB Infusion Nortriptyline HCl (Pamelor) 150 mg PO QHS [facility] Last Admin: 05/14/19 23:05 Dose: 150 mg Documented by: Ondansetron HCl (Zofran) 4 mg IV Q8H PRN PRN PRN Reason: Nausea Oxycodone HCl (Oxyir) 5 mg PO Q4H PRN PRN PRN Reason: Pain Score 3-10/10 Pantoprazole Sodium (Protonix) 20 mg PO DAILY [facility] Senna/Docusate Sodium (Senokot-S, Lynne-Colace) 1 tablet PO DAILY PRN PRN Reason: CONSTIPATION Sodium Chloride () 10 - 40 ml IV UD PRN PRN Reason: SALINE FLUSH Medical Necessity - Tobacco Use Smoking Status: Never smoker Tobacco Use: Non-smoker Assessment/Plan All Active Problems Closed right ankle fracture (Acute) Posterior tibial tendinitis of right lower extremity (Acute) Tibialis posterior tendinopathy (Acute) Posterior tibial tendon dysfunction with posterior tibial tendon tear, pes planus and 3rd digit hammer toe all right foot s/p Debride/repair of posterior tibial tendon and flexor digitorum longus tendon, and repair of spring ligament, right. Flexor hallucis longus tendon transfer, right. Medial displacing calcaneal osteotomy, right. Right 3rd toe arthrodesis/correction of hammer toe deformity on 05/14/2019 Nonweightbearing right foot, PT/OT consulted. Keep foot elevated at all times and heel offloaded. Keep dressing clean, dry and intact. Pain management: Pain well controlled. Acetaminophen, Oxyir, and Dilaudid. Antibiotic prophylaxis: Cefazolin 1g q 8 hrs for 3 doses post op to help prevent infection. DVT prophylaxis: Lovenox 40mg once daily, starting on 1/17/20. Needs nursing facility placement post op. Hospitalist/medicine team consulted to help with medical management. Greatly appreciate assistance.
[2019-05-15 08:35] LABS: Absolute Lymphocyte Count 1.18 X10^3/uL (0.83-4.51); Absolute Neutrophil Count 13.2 X10^3/uL (2.0-7.7); Basophil# 0.02 X10^3/uL; Basophil% 0.1 % (0-1); Hematocrit 35.5 % (37-47); Hemoglobin 11.3 g/dL (12.0-15.0); Lymphocyte # 1.18 X10^3/ul (4.0); Lymphocyte % 7.8 % (19-41); Mean Corp Hgb Conc 31.8 g/dL (32-36); Mean Corpuscular Hgb 30.8 pg (27.0-32.0); Mean Corpuscular Volume 96.7 fL (81-99); Mean Platelet Vol. 9.1 fl (6.2-12.0); Monocyte# 0.72 X10^3/uL; Monocyte% 4.7 % (0-10); NRBC Flagged by Analyzer 0 % (0-5); Neutrophil # 13.21 X10^3/uL (2.7-7.7); Neutrophil % 86.8 % (47-70); Platelet Count 251 K/mm3 (150-450); RBC Distribution Width CV 12.3 % (11.6-14.6); RBC Distribution Width SD 43.7 fl (35.1-43.9); Red Blood Count 3.67 M/mm3 (4.2-5.4); White Blood Count 15.2 K/mm3 (4.4-11.0)
[2019-05-15 08:55] LABS: Anion Gap 7 (5-15); BUN 11 mg/dL (7-18); BUN/Creat Ratio 12.3 RATIO (10-20); Calcium,Total 8.1 mg/dL (8.5-10.1); Chloride 110 mmol/L (98-107); EST Glomerular Filtration Rate 66 mL/min (>60); Est Glom Filt Rate - Afr Amer 79 mL/min (>60); Estimated Creatinine Clearance 46.05 ml/min; Glucose 164 mg/dL (74-106); Potassium 4.5 mmol/L (3.5-5.1); Sodium Level 137 mmol/L (136-145)
[2019-05-15] MEDS: Pantoprazole Sodium 20 MG Tablet PO (08:55)
[2019-05-15] MEDS: Estradiol 1 MG Tablet PO (08:55)
[2019-05-15] MEDS: Lactated Ringers 1,000 ML 100 ML IV (08:59)
--- NOTE | 2019-05-15 11:24 | NURSING ---
pt requesting IVF be put on hold for now.
--- NOTE | 2019-05-15 11:53 | CASEMGMT ---
Social Work Consult: Custodial Placement Informant: Dr. Vázquez Met with patient in room. Introduced self as well as social media intern role. Patient agreeable to meet with this social media intern. Patient lives in a 1-story home with 1 step to enter. Patient lives with a friend that is not able to assist with patient. Patient stating to have a history of staying at [facility] in the past but that first option for [place] [facility] would be [facility]. Patient educated that unsure of bed status on TCU and will put patient on list. Social work to follow up on referral on Friday. Patient stating to have health care power of associate attorney and patient sonTushar is patient health care power of associate attorney and documents are noted to be on chart. Telephone call to TCU referral line, voicemail left. Milton ESQUIVEL, BRODIE
--- NOTE | 2019-05-15 12:31 | PCM.PROGNOTE ---
Patient Problems: Active and Suspected Problems Posterior tibial tendinitis of right lower extremity (Acute) Tibialis posterior tendinopathy (Acute) Subjective: Patient seen and examined. Resting comfortably in chair. Denies pain. Denies fever, chills. Plan for SNF pending acceptance. - Physical Exam Vitals/I&O's: Vital Signs Temp Pulse Resp BP Pulse Ox 97.5 F L 80 16 98/51 L 96 05/15/19 08:30 05/15/19 11:01 05/15/19 08:30 05/15/19 11:01 05/15/19 08:30 Oxygen Delivery Method Room Air Weight: 162 lb 7.691 oz Body Mass Index (BMI) 28.8 Finger Stick Blood Glucose 138 Intake and Output for Last 24 Hours 05/13/19 05/14/19 05/15/19 23:59 23:59 23:59 Intake Total 2500 / 2740 1418.34 / 1418.34 Output Total 1950 / 1950 Balance 2500 / 1440 -531.66 / -531.66 General: Alert, Oriented x3, Cooperative HEENT: Atraumatic, PERRLA, EOMI, Normocephalic Neck: Supple, No JVD, Negative Carotid Bruits Lungs: Clear to auscultation, Normal air movement Cardiovascular: Regular rate, Regular Rhythm, Normal S1, Normal S2, No murmurs Abdomen: Bowel Sounds Present, Soft, Non Tender, Non-Distended Extremities: No clubbing, No cyanosis, No edema, Capillary Refill Less than 3 Seconds Skin: No rashes, No breakdown, - - Right foot postop dressing clean dry and intact. Musculoskeletal: No Tenderness to Palpation of Joints or Extremities Neurological: Cranial nerves II-XII grossly intact, Neuro grossly intact Psych/Mental Status: Normal Affect, Appropriate Laboratory Results 05/15/19 08:08: WBC 15.2 H, RBC 3.67 L, Hgb 11.3 L, Hct 35.5 L, MCV 96.7, MCH 30.8, MCHC 31.8 L, RDW Std Deviation 43.7, RDW Coeff of Meño 12.3, Plt Count 251, MPV 9.1, Immature Gran % (Auto) 0.600, Neut % (Auto) 86.8 H, Lymph % (Auto) 7.8 L, [place] % (Auto) 4.7, Eos % (Auto) 0.0, Baso % (Auto) 0.1, Absolute Neuts (auto) 13.2 H, Absolute Lymphs (auto) 1.18, Nucleated RBC % 0 05/15/19 08:08: Sodium 137, Potassium 4.5, Chloride 110 H, Carbon Dioxide 20.0 L, Anion Gap 7, BUN 11, Creatinine 0.90, Estim Creat Clear Calc 46.05, Est GFR (MDRD) Af Amer 79, Est GFR (MDRD) Non-Af 66, BUN/Creatinine Ratio 12.3, Glucose 164 H, Calcium 8.1 L Current Medications Acetaminophen (Tylenol) 650 mg PO Q6H PRN PRN PRN Reason: Pain Score 1-10/10 Atenolol (Tenormin (Beta King)) 25 mg PO BID [facility] Last Admin: 05/15/19 11:00 Dose: Not Given Documented by: Enoxaparin Sodium (Lovenox) 40 mg SC DAILY@0600 [facility] Last Admin: 05/15/19 06:04 Dose: 40 mg Documented by: Estradiol (Estrace (G)) 1 mg PO DAILY [facility] Last Admin: 05/15/19 08:55 Dose: 1 mg Documented by: Hydromorphone HCl (Dilaudid Inj) 1 mg IV Q3H PRN PRN PRN Reason: Pain Score 6-10/10 Lactated Ringer's () 1,000 mls @ 100 mls/hr IV .Q10H [facility] Last Infusion: 05/15/19 11:24 Dose: 0 mls/hr Documented by: Cefazolin Sodium () 1 gm in 50 mls @ 100 mls/hr IV Q8 [facility] Stop: 05/15/19 14:29 Last Infusion: 05/15/19 06:34 Dose: Infused Documented by: Sodium Chloride () 250 mls @ 15 mls/hr IV .[id number] PRN PRN Reason: Saline Flush Sodium Chloride () 250 mls @ 15 mls/hr IV .[id number] PRN PRN Reason: Additional IVPB Infusion Nortriptyline HCl (Pamelor) 150 mg PO QHS [facility] Last Admin: 05/14/19 23:05 Dose: 150 mg Documented by: Ondansetron HCl (Zofran) 4 mg IV Q8H PRN PRN PRN Reason: Nausea Oxycodone HCl (Oxyir) 5 mg PO Q4H PRN PRN PRN Reason: Pain Score 3-10/10 Pantoprazole Sodium (Protonix) 20 mg PO DAILY [facility] Last Admin: 05/15/19 08:55 Dose: 20 mg Documented by: Senna/Docusate Sodium (Senokot-S, Lynne-Colace) 1 tablet PO DAILY PRN PRN Reason: CONSTIPATION Sodium Chloride () 10 - 40 ml IV UD PRN PRN Reason: SALINE FLUSH Medical Necessity - Tobacco Use Smoking Status: Never smoker Tobacco Use: Non-smoker Assessment/Plan All Active Problems Closed right ankle fracture (Acute) Posterior tibial tendinitis of right lower extremity (Acute) Tibialis posterior tendinopathy (Acute) 1. Acute metabolic encephalopathy postoperatively following anesthesia and narcotic regimen-resolved. Patient has had similar symptoms with prior anesthesia as well. No further confusion during admission. 2. Debility status post repair of posterior tibial tendon and flexor digitorum longus tendon, repair of spring ligament, flexor hallux is longus tendon transfer, medial displacing calcaneal osteotomy and right third toe arthrodesis correction of hammertoe deformity 05/14/2019 by podiatry, Dr. Arias. Patient denies any pain. Further management per podiatry. Awaiting SNF acceptance. PT/OT. NWB RLE. 3. History of cerebral aneurysm status post surgery-follows with neurosurgery and neurology as outpatient. 4. Hypertension-stable, continue atenolol regimen. DVT prophylaxis- Lovenox ct This patient was seen by JUAREZ Sanchez under the supervision of Dr. Vázquez.
[2019-05-15] MEDS: Nortriptyline 25 MG Capsule 150 MG PO (21:40)
[2019-05-15] MEDS: Atenolol 25 MG Tablet PO (21:41)
[2019-05-16] VITALS (10 sets, daily range): BP systolic 111–116; BP diastolic 48–70; PULSE 75–89; RESP 16–17; TEMP 36.7–36.8; O2SAT 94–97
[2019-05-16] MEDS: 0.9% Saline Lock 10 ML Syringe IV (06:58)
[2019-05-16] MEDS: Enoxaparin 40 MG/0.4 ML Syringe SC (06:58)
[2019-05-16] MEDS: Pantoprazole Sodium 20 MG Tablet PO (09:04)
[2019-05-16] MEDS: Estradiol 1 MG Tablet PO (09:04)
[2019-05-16] MEDS: Atenolol 25 MG Tablet PO ×2 (09:04→22:16)
--- NOTE | 2019-05-16 09:13 | PCM.PROGNOTE ---
Patient Problems: Active and Suspected Problems Posterior tibial tendinitis of right lower extremity (Acute) Tibialis posterior tendinopathy (Acute) Subjective: Patient seen and examined. No acute events overnight. Denies complaints. Awaiting SNF acceptance. - Physical Exam Vitals/I&O's: Vital Signs Temp Pulse Resp BP Pulse Ox 98.2 F 78 17 111/48 L 94 05/16/19 09:01 05/16/19 09:01 05/16/19 09:01 05/16/19 09:01 05/16/19 09:01 Oxygen Delivery Method Room Air Weight: 162 lb 7.691 oz Body Mass Index (BMI) 28.8 Finger Stick Blood Glucose 138 Intake and Output for Last 24 Hours 05/14/19 05/15/19 05/16/19 23:59 23:59 23:59 Intake Total 2500 / 2740 3038.34 / 3038.34 100 / 100 Output Total 2775 / 2775 500 / 500 Balance 2500 / 1440 263.34 / 263.34 -400 / -400 General: Alert, Oriented x3, Cooperative HEENT: Atraumatic, PERRLA, EOMI, Normocephalic Neck: Supple, No JVD, Negative Carotid Bruits Lungs: Clear to auscultation, Normal air movement Cardiovascular: Regular rate, Regular Rhythm, Normal S1, Normal S2, No murmurs Abdomen: Bowel Sounds Present, Soft, Non Tender, Non-Distended Extremities: No clubbing, No cyanosis, No edema, Capillary Refill Less than 3 Seconds Skin: No rashes, No breakdown, - - Right foot postop dressing clean dry and intact. Musculoskeletal: No Tenderness to Palpation of Joints or Extremities Neurological: Cranial nerves II-XII grossly intact, Neuro grossly intact Psych/Mental Status: Normal Affect, Appropriate Current Medications Acetaminophen (Tylenol) 650 mg PO Q6H PRN PRN PRN Reason: Pain Score 1-10/10 Atenolol (Tenormin (Beta King)) 25 mg PO BID [facility] Last Admin: 05/16/19 09:04 Dose: 25 mg Documented by: Enoxaparin Sodium (Lovenox) 40 mg SC DAILY@0600 [facility] Last Admin: 05/16/19 06:58 Dose: 40 mg Documented by: Estradiol (Estrace (G)) 1 mg PO DAILY [facility] Last Admin: 05/16/19 09:04 Dose: 1 mg Documented by: Hydromorphone HCl (Dilaudid Inj) 1 mg IV Q3H PRN PRN PRN Reason: Pain Score 6-10/10 Nortriptyline HCl (Pamelor) 150 mg PO QHS [facility] Last Admin: 05/15/19 21:40 Dose: 150 mg Documented by: Ondansetron HCl (Zofran) 4 mg IV Q8H PRN PRN PRN Reason: Nausea Oxycodone HCl (Oxyir) 5 mg PO Q4H PRN PRN PRN Reason: Pain Score 3-10/10 Pantoprazole Sodium (Protonix) 20 mg PO DAILY [facility] Last Admin: 05/16/19 09:04 Dose: 20 mg Documented by: Senna/Docusate Sodium (Senokot-S, Lynne-Colace) 1 tablet PO DAILY PRN PRN Reason: CONSTIPATION Sodium Chloride () 10 - 40 ml IV UD PRN PRN Reason: SALINE FLUSH Last Admin: 05/16/19 06:58 Dose: 10 ml Documented by: Medical Necessity - Tobacco Use Smoking Status: Never smoker Tobacco Use: Non-smoker Assessment/Plan All Active Problems Closed right ankle fracture (Acute) Posterior tibial tendinitis of right lower extremity (Acute) Tibialis posterior tendinopathy (Acute) 1. Acute metabolic encephalopathy postoperatively following anesthesia and narcotic regimen-resolved. Patient has had similar symptoms with prior anesthesia as well. No further confusion during admission. 2. Debility status post repair of posterior tibial tendon and flexor digitorum longus tendon, repair of spring ligament, flexor hallux is longus tendon transfer, medial displacing calcaneal osteotomy and right third toe arthrodesis correction of hammertoe deformity 05/14/2019 by podiatry, Dr. Arias. Patient denies any pain. Further management per podiatry. Awaiting SNF acceptance. PT/OT. NWB RLE. 3. History of cerebral aneurysm status post surgery-follows with neurosurgery and neurology as outpatient. 4. Hypertension-stable, continue atenolol regimen. DVT prophylaxis- Lovenox sc This patient was seen by JUAREZ Sanchez under the supervision of Dr. Vázquez.
--- NOTE | 2019-05-16 09:55 | PCM.PROGNOTE ---
Patient Problems: Active and Suspected Problems Posterior tibial tendinitis of right lower extremity (Acute) Tibialis posterior tendinopathy (Acute) Subjective: Patient was seen this morning for follow up on right foot surgery. She is resting comfortably in bed. She denies right foot pain, calf pain, shortness of breath, chest pain, fever, chill, nausea, vomiting, or loss of appetite. She has been using a walker for assistance. - Physical Exam Vitals/I&O's: Vital Signs Temp Pulse Resp BP Pulse Ox 98.2 F 78 17 111/48 L 94 05/16/19 09:01 05/16/19 09:01 05/16/19 09:01 05/16/19 09:01 05/16/19 09:01 Oxygen Delivery Method Room Air Weight: 73.7 kg Body Mass Index (BMI) 28.8 Finger Stick Blood Glucose 138 Intake and Output for Last 24 Hours 05/14/19 05/15/19 05/16/19 23:59 23:59 23:59 Intake Total 2500 / 2740 3038.34 / 3038.34 100 / 100 Output Total 2775 / 2775 500 / 500 Balance 2500 / 1440 263.34 / 263.34 -400 / -400 General: Alert, Oriented x3, Cooperative HEENT: Atraumatic Lungs: Clear to auscultation, Normal air movement Cardiovascular: Regular rate, Regular Rhythm Extremities: Capillary Refill Less than 3 Seconds - Right foot digits 1, 2, 3, No Calf Tenderness Skin: - - The dressing and splints are clean, dry, and intact without strikethrough or odor or extending redness Musculoskeletal: No Tenderness to Palpation of Joints or Extremities, - - Rectus right lower extremity. Active range of motion digits right foot Neurological: - - Lack of normal sensation light touch to digits right Psych/Mental Status: Normal Affect, Appropriate Current Medications Acetaminophen (Tylenol) 650 mg PO Q6H PRN PRN PRN Reason: Pain Score 1-10/10 Atenolol (Tenormin (Beta King)) 25 mg PO BID [facility] Last Admin: 05/16/19 09:04 Dose: 25 mg Documented by: Enoxaparin Sodium (Lovenox) 40 mg SC DAILY@0600 [facility] Last Admin: 05/16/19 06:58 Dose: 40 mg Documented by: Estradiol (Estrace (G)) 1 mg PO DAILY [facility] Last Admin: 05/16/19 09:04 Dose: 1 mg Documented by: Hydromorphone HCl (Dilaudid Inj) 1 mg IV Q3H PRN PRN PRN Reason: Pain Score 6-10/10 Nortriptyline HCl (Pamelor) 150 mg PO QHS [facility] Last Admin: 05/15/19 21:40 Dose: 150 mg Documented by: Ondansetron HCl (Zofran) 4 mg IV Q8H PRN PRN PRN Reason: Nausea Oxycodone HCl (Oxyir) 5 mg PO Q4H PRN PRN PRN Reason: Pain Score 3-10/10 Pantoprazole Sodium (Protonix) 20 mg PO DAILY [facility] Last Admin: 05/16/19 09:04 Dose: 20 mg Documented by: Senna/Docusate Sodium (Senokot-S, Lynne-Colace) 1 tablet PO DAILY PRN PRN Reason: CONSTIPATION Sodium Chloride () 10 - 40 ml IV UD PRN PRN Reason: SALINE FLUSH Last Admin: 05/16/19 06:58 Dose: 10 ml Documented by: Medical Necessity - Tobacco Use Smoking Status: Never smoker Tobacco Use: Non-smoker Assessment/Plan All Active Problems Closed right ankle fracture (Acute) Posterior tibial tendinitis of right lower extremity (Acute) Tibialis posterior tendinopathy (Acute) Posterior tibial tendon dysfunction with posterior tibial tendon tear, pes planus and 3rd digit hammer toe all right foot s/p Debride/repair of posterior tibial tendon and flexor digitorum longus tendon, and repair of spring ligament, right. Flexor hallucis longus tendon transfer, right. Medial displacing calcaneal osteotomy, right. Right 3rd toe arthrodesis/correction of hammer toe deformity on 05/14/2019 Nonweightbearing right foot, PT/OT consulted. To use walker as assistive device. Keep foot elevated at all times and heel offloaded. Keep dressing clean, dry and intact. Pain management: Pain well controlled. DVT prophylaxis: Lovenox 40mg once daily, starting on 05/14/19. To continue incentive spirometer while awake. Needs nursing facility placement post op. This is pending for transitional care unit placement. Hospitalist/medicine team consulted to help with medical management. Greatly appreciate assistance. Please not hesitate to call if you have any questions. Sena Skinner DPM, [facility] [phone]
[2019-05-16] MEDS: Nortriptyline 25 MG Capsule 150 MG PO (22:37)
[2019-05-17] VITALS (10 sets, daily range): BP systolic 129–131; BP diastolic 52–79; PULSE 68–85; RESP 16–20; TEMP 36.8–37.1; O2SAT 96–98
[2019-05-17] MEDS: Enoxaparin 40 MG/0.4 ML Syringe SC (06:05)
[2019-05-17 06:34] LABS: Absolute Lymphocyte Count 2.45 X10^3/uL (0.83-4.51); Absolute Neutrophil Count 6.1 X10^3/uL (2.0-7.7); Basophil# 0.03 X10^3/uL; Basophil% 0.3 % (0-1); Eosinophil# 0.27 X10^3/uL; Eosinophils% 2.7 % (0-5); Hematocrit 35.1 % (37-47); Hemoglobin 11.2 g/dL (12.0-15.0); Lymphocyte # 2.45 X10^3/ul (4.0); Lymphocyte % 24.8 % (19-41); Mean Corp Hgb Conc 31.9 g/dL (32-36); Mean Corpuscular Hgb 30.4 pg (27.0-32.0); Mean Corpuscular Volume 95.1 fL (81-99); Mean Platelet Vol. 8.3 fl (6.2-12.0); Monocyte# 0.93 X10^3/uL; Monocyte% 9.4 % (0-10); NRBC Flagged by Analyzer 0 % (0-5); Neutrophil % 61.7 % (47-70); Platelet Count 275 K/mm3 (150-450); RBC Distribution Width CV 12.4 % (11.6-14.6); RBC Distribution Width SD 43.1 fl (35.1-43.9); Red Blood Count 3.69 M/mm3 (4.2-5.4); White Blood Count 9.9 K/mm3 (4.4-11.0)
[2019-05-17 07:01] LABS: Anion Gap 4 (5-15); BUN 10 mg/dL (7-18); BUN/Creat Ratio 11.7 RATIO (10-20); Calcium,Total 8.5 mg/dL (8.5-10.1); Chloride 101 mmol/L (98-107); Creatinine, Serum 0.86 mg/dL (0.55-1.02); EST Glomerular Filtration Rate 69 mL/min (>60); Est Glom Filt Rate - Afr Amer 83 mL/min (>60); Estimated Creatinine Clearance 48.19 ml/min; Glucose 120 mg/dL (74-106); Potassium 4.1 mmol/L (3.5-5.1); Sodium Level 137 mmol/L (136-145)
[2019-05-17] MEDS: Pantoprazole Sodium 20 MG Tablet PO (09:27)
[2019-05-17] MEDS: Estradiol 1 MG Tablet PO (09:27)
[2019-05-17] MEDS: Atenolol 25 MG Tablet PO ×2 (09:27→21:41)
--- NOTE | 2019-05-17 11:45 | PN_ITS ---
<Charleen Hernandez - Last Filed: 05/17/19 11:47> Patient Problems: Active and Suspected Problems Walking difficulty due to ankle and foot (Acute) Hammer toe of right foot (Acute) Posterior tibial tendinitis of right lower extremity (Acute) Tibialis posterior tendinopathy (Acute) Subjective: Patient seen and examined. Denies current complaints. Awaiting SNF acceptance. Denies pain, fever, chills. Denies GI/ complaints. - Physical Exam Vitals/I&O's: Vital Signs Temp Pulse Resp BP Pulse Ox 98.7 F 79 16 131/79 H 97 05/17/19 09:50 05/17/19 09:50 05/17/19 09:50 05/17/19 09:50 05/17/19 09:50 Oxygen Delivery Method Room Air Weight: 162 lb 7.691 oz Body Mass Index (BMI) 28.8 Finger Stick Blood Glucose 138 Intake and Output for Last 24 Hours 05/15/19 05/16/19 05/17/19 23:59 23:59 23:59 Intake Total 3038.34 / 3038.34 5 / 5 240 / 240 Output Total 2775 / 2775 800 / 800 Balance 263.34 / 263.34 1255 / 1255 240 / 240 General: Alert, Oriented x3, Cooperative HEENT: Atraumatic, PERRLA, EOMI, Normocephalic Neck: Supple, No JVD, Negative Carotid Bruits Lungs: Clear to auscultation, Normal air movement Cardiovascular: Regular rate, Regular Rhythm, Normal S1, Normal S2, No murmurs Abdomen: Bowel Sounds Present, Soft, Non Tender, Non-Distended Extremities: No clubbing, No cyanosis, No edema, Capillary Refill Less than 3 Seconds Skin: No rashes, No breakdown, - - Right foot postop dressing clean dry and intact. Musculoskeletal: No Tenderness to Palpation of Joints or Extremities Neurological: Cranial nerves II-XII grossly intact, Neuro grossly intact Psych/Mental Status: Normal Affect, Appropriate Laboratory Results 05/17/19 06:05: WBC 9.9, RBC 3.69 L, Hgb 11.2 L, Hct 35.1 L, MCV 95.1, MCH 30.4, MCHC 31.9 L, RDW Std Deviation 43.1, RDW Coeff of Meño 12.4, Plt Count 275, MPV 8.3, Immature Gran % (Auto) 1.100 H, Neut % (Auto) 61.7, Lymph % (Auto) 24.8, [place] % (Auto) 9.4, Eos % (Auto) 2.7, Baso % (Auto) 0.3, Absolute Neuts (auto) 6.1, Absolute Lymphs (auto) 2.45, Nucleated RBC % 0 05/17/19 06:05: Sodium 137, Potassium 4.1, Chloride 101, Carbon Dioxide 32.0, Anion Gap 4 L, BUN 10, Creatinine 0.86, Estim Creat Clear Calc 48.19, Est GFR (MDRD) Af Amer 83, Est GFR (MDRD) Non-Af 69, BUN/Creatinine Ratio 11.7, Glucose 120 H, Calcium 8.5 Current Medications Acetaminophen (Tylenol) 650 mg PO Q6H PRN PRN PRN Reason: Pain Score 1-10/10 Atenolol (Tenormin (Beta King)) 25 mg PO BID [facility] Last Admin: 05/17/19 09:27 Dose: 25 mg Documented by: Enoxaparin Sodium (Lovenox) 40 mg SC DAILY@0600 [facility] Last Admin: 05/17/19 06:05 Dose: 40 mg Documented by: Estradiol (Estrace (G)) 1 mg PO DAILY [facility] Last Admin: 05/17/19 09:27 Dose: 1 mg Documented by: Hydromorphone HCl (Dilaudid Inj) 1 mg IV Q3H PRN PRN PRN Reason: Pain Score 6-10/10 Nortriptyline HCl (Pamelor) 150 mg PO QHS [facility] Last Admin: 05/16/19 22:37 Dose: 150 mg Documented by: Ondansetron HCl (Zofran) 4 mg IV Q8H PRN PRN PRN Reason: Nausea Oxycodone HCl (Oxyir) 5 mg PO Q4H PRN PRN PRN Reason: Pain Score 3-10/10 Pantoprazole Sodium (Protonix) 20 mg PO DAILY [facility] Last Admin: 05/17/19 09:27 Dose: 20 mg Documented by: Senna/Docusate Sodium (Senokot-S, Lynne-Colace) 1 tablet PO DAILY PRN PRN Reason: CONSTIPATION Sodium Chloride () 10 - 40 ml IV UD PRN PRN Reason: SALINE FLUSH Last Admin: 05/16/19 06:58 Dose: 10 ml Documented by: Medical Necessity - Tobacco Use Smoking Status: Never smoker Tobacco Use: Non-smoker Assessment/Plan All Active Problems Walking difficulty due to ankle and foot (Acute) Hammer toe of right foot (Acute) Closed right ankle fracture (Acute) Posterior tibial tendinitis of right lower extremity (Acute) Tibialis posterior tendinopathy (Acute) 1. Acute metabolic encephalopathy postoperatively following anesthesia and narcotic regimen-resolved. Patient has had similar symptoms with prior anesthesia as well. No further confusion during admission. 2. Debility status post repair of posterior tibial tendon and flexor digitorum longus tendon, repair of spring ligament, flexor hallux is longus tendon transfer, medial displacing calcaneal osteotomy and right third toe arthrodesis correction of hammertoe deformity 05/14/2019 by podiatry, Dr. Arias. Patient denies any pain. Further management per podiatry. Awaiting SNF acceptance. PT/OT. NWB RLE. 3. History of cerebral aneurysm status post surgery-follows with neurosurgery and neurology as outpatient. 4. Hypertension-stable, continue atenolol regimen. DVT prophylaxis- Lovenox sc This patient was seen by JUAREZ Sanchez under the supervision of Dr. Palacios. <Erlinda Palacios - Last Filed: 05/17/19 12:32> - Physical Exam Vitals/I&O's: Vital Signs Temp Pulse Resp BP Pulse Ox 98.7 F 79 16 131/79 H 97 05/17/19 09:50 05/17/19 09:50 05/17/19 09:50 05/17/19 09:50 05/17/19 09:50 Oxygen Delivery Method Room Air Weight: 162 lb 7.691 oz Body Mass Index (BMI) 28.8 Finger Stick Blood Glucose 138 Intake and Output for Last 24 Hours 05/15/19 05/16/19 05/17/19 23:59 23:59 23:59 Intake Total 3038.34 / 3038.34 5 / 5 720 / 720 Output Total 2775 / 2775 800 / 800 Balance 263.34 / 263.34 1255 / 1255 720 / 720 Laboratory Results 05/17/19 06:05: WBC 9.9, RBC 3.69 L, Hgb 11.2 L, Hct 35.1 L, MCV 95.1, MCH 30.4, MCHC 31.9 L, RDW Std Deviation 43.1, RDW Coeff of Meño 12.4, Plt Count 275, MPV 8.3, Immature Gran % (Auto) 1.100 H, Neut % (Auto) 61.7, Lymph % (Auto) 24.8, [place] % (Auto) 9.4, Eos % (Auto) 2.7, Baso % (Auto) 0.3, Absolute Neuts (auto) 6.1, Absolute Lymphs (auto) 2.45, Nucleated RBC % 0 05/17/19 06:05: Sodium 137, Potassium 4.1, Chloride 101, Carbon Dioxide 32.0, Anion Gap 4 L, BUN 10, Creatinine 0.86, Estim Creat Clear Calc 48.19, Est GFR (MDRD) Af Amer 83, Est GFR (MDRD) Non-Af 69, BUN/Creatinine Ratio 11.7, Glucose 120 H, Calcium 8.5 Current Medications Acetaminophen (Tylenol) 650 mg PO Q6H PRN PRN PRN Reason: Pain Score 1-10/10 Atenolol (Tenormin (Beta King)) 25 mg PO BID [facility] Last Admin: 05/17/19 09:27 Dose: 25 mg Documented by: Enoxaparin Sodium (Lovenox) 40 mg SC DAILY@0600 [facility] Last Admin: 05/17/19 06:05 Dose: 40 mg Documented by: Estradiol (Estrace (G)) 1 mg PO DAILY [facility] Last Admin: 05/17/19 09:27 Dose: 1 mg Documented by: Hydromorphone HCl (Dilaudid Inj) 1 mg IV Q3H PRN PRN PRN Reason: Pain Score 6-10/10 Nortriptyline HCl (Pamelor) 150 mg PO QHS [facility] Last Admin: 05/16/19 22:37 Dose: 150 mg Documented by: Ondansetron HCl (Zofran) 4 mg IV Q8H PRN PRN PRN Reason: Nausea Oxycodone HCl (Oxyir) 5 mg PO Q4H PRN PRN PRN Reason: Pain Score 3-10/10 Pantoprazole Sodium (Protonix) 20 mg PO DAILY [facility] Last Admin: 05/17/19 09:27 Dose: 20 mg Documented by: Senna/Docusate Sodium (Senokot-S, Lynne-Colace) 1 tablet PO DAILY PRN PRN Reason: CONSTIPATION Sodium Chloride () 10 - 40 ml IV UD PRN PRN Reason: SALINE FLUSH Last Admin: 05/16/19 06:58 Dose: 10 ml Documented by: Assessment/Plan Hospitalist note: I am seeing this patient in conjunction with Charleen Hernandez. I independently seen and examined the patient. Progress note above and laboratory data reviewed and I concur with above treatment plan. Patient denied any complaints. This morning, she ambulated with physical therapy but she was tired afterwards. She denied any other complaints. Her vital signs are stable. - Physical Exam General: Alert, Oriented x3, Cooperative, No apparent distress. HEENT: Atraumatic, PERRLA, EOMI. Neck: Supple, No JVD, Negative Carotid Bruits, Trachea Midline, Thyroid Normal. Lungs: Clear to auscultation, Normal air movement, No rhonchi, No wheeze, No rales. Cardiovascular: Regular rate, Regular Rhythm, Normal S1, Normal S2, PMI Normal. Abdomen: Bowel Sounds Present, Soft, Non Tender, Non-Distended, No Hepato- splenomegaly. Extremities: No clubbing, No cyanosis, No edema Skin: No rashes, No breakdown Neurological: Cranial nerves are intact, neuro grossly intact Vital Signs are stable. Assessment and plan: #1 postoperative acute metabolic encephalopathy: Attributed to anesthesia and narcotics. Resolved. Today, patient is alert and noted x3, no complaints. Her vital signs are stable. Routine blood work reviewed, unremarkable. Reportedly, patient had similar symptoms with prior anesthesia in the past. She has no more confusion. For medical standpoint, patient is stable and can be discharged to SNF. No new medication added to her home medication list. #2 status post repair of posterior tibial tendon, flexor digitorum longus tendon and repair of spring ligament as well as repair of flexor hallux longus tendon: Postoperative day 3. She denied any right foot complaint. She started ambulating. She is on OxyIR PRN for pain, pain is well managed. Podiatry medicine is on the case. #3 other chronic medical problems: Stable, continue current medication as above. This note was generated with Dragon dictation software. It may contain incorrect words, spelling, and punctuation that were not noted in checking the note before signing. Code Visit Inpatient E&M: 86483 Subs Hosp L2
--- NOTE | 2019-05-17 12:51 | CASEMGMT ---
ADRYAN spoke with [facility] and there will not be any beds in [facility]. ADRYAN spoke with patient letting her know TCU does not have any beds and confirmed her second choice was [facility]. ADRYAN called [facility] with referral and also faxed information. Received a return call a short time later and they can accept patient. Amanda will start the pre-cert request. ADRYAN notified patient that [facility] can accept her and we will need to wait on insurance to give us an answer. Plan: [facility] pending insurance approval. Valerie CALLOWAY MSW
--- NOTE | 2019-05-17 15:32 | CASEMGMT ---
Patient has a Healthcare Power of Saxophone [employer]er and a Healthcare Living Will on file at [facility]. Her son Tushar Pittman is her HCPOA. Valerie CALLOWAY MSW
--- NOTE | 2019-05-17 18:46 | PN_ITS ---
Patient Problems: Active and Suspected Problems Walking difficulty due to ankle and foot (Acute) Hammer toe of right foot (Acute) Posterior tibial tendinitis of right lower extremity (Acute) Tibialis posterior tendinopathy (Acute) Subjective: Patient was seen this evening for follow-up following patient's extensive right foot surgery. She is currently resting comfortably in bed. She currently denies any pain due to her neuropathy. Patient denies any feelings of nausea, vomiting, fever, chills, shortness of breath. - Physical Exam Vitals/I&O's: Vital Signs Temp Pulse Resp BP Pulse Ox 98.5 F 84 16 129/74 H 97 05/17/19 15:39 05/17/19 15:39 05/17/19 15:39 05/17/19 15:39 05/17/19 15:39 Oxygen Delivery Method Room Air Weight: 73.7 kg Body Mass Index (BMI) 28.8 Finger Stick Blood Glucose 138 Intake and Output for Last 24 Hours 05/15/19 05/16/19 05/17/19 23:59 23:59 23:59 Intake Total 3038.34 / 3038.34 2054 / 2054 1200 / 1200 Output Total 2775 / 2775 800 / 800 Balance 263.34 / 263.34 1255 / 1255 1200 / 1200 General: Alert, Oriented x3, Cooperative HEENT: Atraumatic Cardiovascular: Regular rate, Regular Rhythm Extremities: Capillary Refill Less than 3 Seconds, No Calf Tenderness Skin: - - The dressing and splints are clean, dry, and intact without strikethrough or odor or extending redness Musculoskeletal: No Tenderness to Palpation of Joints or Extremities, - - Active range of motion digits right foot Neurological: - - Lack of normal epicritic sensation to digits on the right Psych/Mental Status: Normal Affect, Appropriate Laboratory Results 05/17/19 06:05: WBC 9.9, RBC 3.69 L, Hgb 11.2 L, Hct 35.1 L, MCV 95.1, MCH 30.4, MCHC 31.9 L, RDW Std Deviation 43.1, RDW Coeff of Meño 12.4, Plt Count 275, MPV 8.3, Immature Gran % (Auto) 1.100 H, Neut % (Auto) 61.7, Lymph % (Auto) 24.8, [place] % (Auto) 9.4, Eos % (Auto) 2.7, Baso % (Auto) 0.3, Absolute Neuts (auto) 6.1, Absolute Lymphs (auto) 2.45, Nucleated RBC % 0 05/17/19 06:05: Sodium 137, Potassium 4.1, Chloride 101, Carbon Dioxide 32.0, Anion Gap 4 L, BUN 10, Creatinine 0.86, Estim Creat Clear Calc 48.19, Est GFR (MDRD) Af Amer 83, Est GFR (MDRD) Non-Af 69, BUN/Creatinine Ratio 11.7, Glucose 120 H, Calcium 8.5 Current Medications Acetaminophen (Tylenol) 650 mg PO Q6H PRN PRN PRN Reason: Pain Score 1-10/10 Atenolol (Tenormin (Beta King)) 25 mg PO BID [facility] Last Admin: 05/17/19 09:27 Dose: 25 mg Documented by: Enoxaparin Sodium (Lovenox) 40 mg SC DAILY@0600 [facility] Last Admin: 05/17/19 06:05 Dose: 40 mg Documented by: Estradiol (Estrace (G)) 1 mg PO DAILY [facility] Last Admin: 05/17/19 09:27 Dose: 1 mg Documented by: Hydromorphone HCl (Dilaudid Inj) 1 mg IV Q3H PRN PRN PRN Reason: Pain Score 6-10/10 Nortriptyline HCl (Pamelor) 150 mg PO QHS [facility] Last Admin: 05/16/19 22:37 Dose: 150 mg Documented by: Ondansetron HCl (Zofran) 4 mg IV Q8H PRN PRN PRN Reason: Nausea Oxycodone HCl (Oxyir) 5 mg PO Q4H PRN PRN PRN Reason: Pain Score 3-10/10 Pantoprazole Sodium (Protonix) 20 mg PO DAILY [facility] Last Admin: 05/17/19 09:27 Dose: 20 mg Documented by: Senna/Docusate Sodium (Senokot-S, Lynne-Colace) 1 tablet PO DAILY PRN PRN Reason: CONSTIPATION Sodium Chloride () 10 - 40 ml IV UD PRN PRN Reason: SALINE FLUSH Last Admin: 05/16/19 06:58 Dose: 10 ml Documented by: Medical Necessity - Tobacco Use Smoking Status: Never smoker Tobacco Use: Non-smoker Assessment/Plan All Active Problems Walking difficulty due to ankle and foot (Acute) Hammer toe of right foot (Acute) Closed right ankle fracture (Acute) Posterior tibial tendinitis of right lower extremity (Acute) Tibialis posterior tendinopathy (Acute) Posterior tibial tendon dysfunction with posterior tibial tendon tear, pes planus and 3rd digit hammer toe all right foot s/p Debride/repair of posterior tibial tendon and flexor digitorum longus tendon, and repair of spring ligament, right. Flexor hallucis longus tendon transfer, right. Medial displacing calcaneal osteotomy, right. Right 3rd toe arthrodesis/correction of hammer toe deformity on 05/14/[address] Arias. Continue to be nonweightbearing right foot. To use walker as assistive device. Keep foot elevated at all times and heel offloaded. Keep dressing clean, dry and intact. Pain management: Pain well controlled. DVT prophylaxis: Lovenox 40mg once daily, starting on 05/14/19. To continue incentive spirometer while awake. Patient will most likely be discharged to [facility] Hospitalist/medicine team consulted to help with medical management. Greatly appreciate continued assistance. Please do not hesitate to call if you have any questions.
[2019-05-17] MEDS: Nortriptyline 25 MG Capsule 150 MG PO (21:40)
[2019-05-18 03:01] VITALS: PULSE 73
[2019-05-18 03:44] VITALS: BP 118/58; PULSE 70; RESP 16; TEMP 36.6; O2SAT 97
[2019-05-18] MEDS: Enoxaparin 40 MG/0.4 ML Syringe SC (06:20)
[2019-05-18] MEDS: Pantoprazole Sodium 20 MG Tablet PO (09:04)
[2019-05-18] MEDS: Estradiol 1 MG Tablet PO (09:04)
[2019-05-18] MEDS: Atenolol 25 MG Tablet PO (09:05)
[2019-05-18 09:40] VITALS: BP 136/69; PULSE 87; RESP 16; TEMP 36.9; O2SAT 97
--- NOTE | 2019-05-18 09:47 | CASEMGMT ---
Patient was approved for [facility]. ADRYAN spoke with patient and asked if she had anyone that could transport her. She wanted the hospital to take her. ADRYAN told her the hospital only has a van and they cannot assist her in or out of the van. She said she would rather the hospital arrange transport. ADRYAN called [facility] and arranged for patient to get picked up at 3p via [facility]. Patient also has 2 suitcases and a couple bags with her. [facility] will not transport all of those belongings. ADRYAN spoke with patient let her know the hospital van is not an option. She thought the hospital also had cars and SW told her we do not. ADRYAN told her SW arranged transport with [facility] via [facility] van and it would cost around $60. She said she would have her friend transport her. ADRYAN told her not to arrange for transport yet as we do not have d/c orders from the physician yet. She thanked ADRYAN. ADRYAN will cancel transport once ADRYAN is positive she has a ride. Valerie CALLOWAY LUMBER CARRIER OPERATOR
--- NOTE | 2019-05-18 10:29 | PCM.EXTCARCO ---
- Diet 05/14/19 19:53 Diet: Regular Diet - Routine Orders/Code Status Enema Type: Fleetz Enema Frequency: Daily PRN Suppository Type: Dulcolax 10mg Suppository Frequency: Daily PRN Code Status: Full Code - Wound(s) right foot Wound Type: Surgical Incision - Suggestions for Active Care Change Position every (hours): 2 Times a day to sit in chair: 3 - Therapies Weight Bearing: Non weight bearing Extremity Affected:: Right Lower Physical Therapy: Eval and Treat Occupational Therapy: Eval and Treat - Problem/Diagnosis (1) Walking difficulty due to ankle and foot Status: Acute Current Visit: Yes (2) Hammer toe of right foot Status: Acute Current Visit: Yes (3) Closed right ankle fracture Status: Resolved Current Visit: No (4) HTN (hypertension) Status: Chronic Current Visit: No (5) Anxiety and depression Status: Chronic Current Visit: No (6) HLD (hyperlipidemia) Status: Chronic Current Visit: No (7) Chronic constipation Status: Chronic Current Visit: No (8) Osteoarthritis Status: Chronic Current Visit: No (9) GERD (gastroesophageal reflux disease) Status: Chronic Current Visit: No (10) Brain aneurysm Status: Chronic Current Visit: No - Allergies/Procedures Done in Hospital Allergies/Adverse Reactions: Allergies codeine Adverse Reaction (Verified 05/14/19 12:18) Nausea fluoxetine HCl [From Prozac] Adverse Reaction (Verified 05/14/19 12:18) shivers morphine Adverse Reaction (Verified 05/14/19 12:18) Nausea Procedures: - - repair of posterior tibial tendon and flexor digitorum longus tendon, repair of spring ligament, flexor hallux is longus tendon transfer, medial displacing calcaneal osteotomy and right third toe arthrodesis correction of hammertoe deformity 05/14/2019 by podiatry, Dr. Arias. - Type of Care/Length of Stay Estimated LOS: Convalescent Care Less Than 30 days Type of Care Needed: Skilled Rehab Potential: Good Prognosis: Good - Additional Orders/Day of Discharge Additional Orders: Keep right foot elevated at all times. Non weight bearing right lower extremity. Keep dressing clean, dry and intact. H&P will serve as current which was dated: 05/14/19 Day of Discharge: 05/18/19 - Follow Up Care Primary Care Physician: Radha Chang MD [Primary Care Provider] - Please follow up with your Primary Care Physician in: 1-2 Weeks Please Follow Up With: Ruiz Arias DPM When: In office 05/21/2019
--- NOTE | 2019-05-18 10:34 | PCM.PROGNOTE ---
<Charleen Hernandez - Last Filed: 05/18/19 10:39> Patient Problems: Active and Suspected Problems Walking difficulty due to ankle and foot (Acute) Hammer toe of right foot (Acute) Subjective: Patient seen and examined. Received acceptance to SNF. Patient denies complaints. - Physical Exam Vitals/I&O's: Vital Signs Temp Pulse Resp BP Pulse Ox 98.5 F 87 16 136/69 H 97 05/18/19 09:40 05/18/19 09:40 05/18/19 09:40 05/18/19 09:40 05/18/19 09:40 Oxygen Delivery Method Room Air Weight: 162 lb 7.691 oz Body Mass Index (BMI) 28.8 Finger Stick Blood Glucose 138 Intake and Output for Last 24 Hours 05/16/19 05/17/19 05/18/19 23:59 23:59 23:59 Intake Total 2055 / 2055 1460 / 1460 30 / 30 Output Total 800 / 800 Balance 1255 / 1255 1460 / 1460 30 / 30 General: Alert, Oriented x3, Cooperative HEENT: Atraumatic, PERRLA, EOMI, Normocephalic Neck: Supple, No JVD, Negative Carotid Bruits Lungs: Clear to auscultation, Normal air movement Cardiovascular: Regular rate, Regular Rhythm, Normal S1, Normal S2, No murmurs Abdomen: Bowel Sounds Present, Soft, Non Tender, Non-Distended Extremities: No clubbing, No cyanosis, No edema, Capillary Refill Less than 3 Seconds Skin: No rashes, No breakdown, - - Right foot post-op dressing clean, dry and intact. Musculoskeletal: No Tenderness to Palpation of Joints or Extremities Neurological: Cranial nerves II-XII grossly intact, Neuro grossly intact Psych/Mental Status: Normal Affect, Appropriate Current Medications Acetaminophen (Tylenol) 650 mg PO Q6H PRN PRN PRN Reason: Pain Score 1-10/10 Atenolol (Tenormin (Beta King)) 25 mg PO BID [facility] Last Admin: 05/18/19 09:05 Dose: 25 mg Documented by: Enoxaparin Sodium (Lovenox) 40 mg SC DAILY@0600 [facility] Last Admin: 05/18/19 06:20 Dose: 40 mg Documented by: Estradiol (Estrace (G)) 1 mg PO DAILY [facility] Last Admin: 05/18/19 09:04 Dose: 1 mg Documented by: Hydromorphone HCl (Dilaudid Inj) 1 mg IV Q3H PRN PRN PRN Reason: Pain Score 6-10/10 Nortriptyline HCl (Pamelor) 150 mg PO QHS [facility] Last Admin: 05/17/19 21:40 Dose: 150 mg Documented by: Ondansetron HCl (Zofran) 4 mg IV Q8H PRN PRN PRN Reason: Nausea Oxycodone HCl (Oxyir) 5 mg PO Q4H PRN PRN PRN Reason: Pain Score 3-10/10 Pantoprazole Sodium (Protonix) 20 mg PO DAILY [facility] Last Admin: 05/18/19 09:04 Dose: 20 mg Documented by: Senna/Docusate Sodium (Senokot-S, Lynne-Colace) 1 tablet PO DAILY PRN PRN Reason: CONSTIPATION Sodium Chloride () 10 - 40 ml IV UD PRN PRN Reason: SALINE FLUSH Last Admin: 05/16/19 06:58 Dose: 10 ml Documented by: Medical Necessity - Tobacco Use Smoking Status: Never smoker Tobacco Use: Non-smoker Assessment/Plan All Active Problems Walking difficulty due to ankle and foot (Acute) Hammer toe of right foot (Acute) Posterior tibial tendinitis of right lower extremity (Acute) Tibialis posterior tendinopathy (Acute) Closed right ankle fracture (Resolved) 1. Acute metabolic encephalopathy postoperatively following anesthesia and narcotic regimen-resolved. Patient has had similar symptoms with prior anesthesia as well. No further confusion during admission. 2. Debility status post repair of posterior tibial tendon and flexor digitorum longus tendon, repair of spring ligament, flexor hallux is longus tendon transfer, medial displacing calcaneal osteotomy and right third toe arthrodesis correction of hammertoe deformity 05/14/2019 by podiatry, Dr. Arias. Patient denies any pain. Further management per podiatry. SNF at discharge. NWB RLE. 3. History of cerebral aneurysm status post surgery-follows with neurosurgery and neurology as outpatient. 4. Hypertension-stable, continue atenolol regimen. DVT prophylaxis- Lovenox sc This patient was seen by JUAREZ Sanchez under the supervision of Dr. Palacios. <Erlinda Palacios E - Last Filed: 05/18/19 11:47> - Physical Exam Vitals/I&O's: Vital Signs Temp Pulse Resp BP Pulse Ox 98.5 F 87 16 136/69 H 97 05/18/19 09:40 05/18/19 09:40 05/18/19 09:40 05/18/19 09:40 05/18/19 09:40 Oxygen Delivery Method Room Air Weight: 162 lb 7.691 oz Body Mass Index (BMI) 28.8 Finger Stick Blood Glucose 138 Intake and Output for Last 24 Hours 05/16/19 05/17/19 05/18/19 23:59 23:59 23:59 Intake Total 2055 / 2055 1460 / 1460 30 / 30 Output Total 800 / 800 Balance 1255 / 1255 1460 / 1460 30 / 30 Current Medications Acetaminophen (Tylenol) 650 mg PO Q6H PRN PRN PRN Reason: Pain Score 1-10/10 Atenolol (Tenormin (Beta King)) 25 mg PO BID [facility] Last Admin: 05/18/19 09:05 Dose: 25 mg Documented by: Enoxaparin Sodium (Lovenox) 40 mg SC DAILY@0600 [facility] Last Admin: 05/18/19 06:20 Dose: 40 mg Documented by: Estradiol (Estrace (G)) 1 mg PO DAILY [facility] Last Admin: 05/18/19 09:04 Dose: 1 mg Documented by: Hydromorphone HCl (Dilaudid Inj) 1 mg IV Q3H PRN PRN PRN Reason: Pain Score 6-10/10 Nortriptyline HCl (Pamelor) 150 mg PO QHS [facility] Last Admin: 05/17/19 21:40 Dose: 150 mg Documented by: Ondansetron HCl (Zofran) 4 mg IV Q8H PRN PRN PRN Reason: Nausea Oxycodone HCl (Oxyir) 5 mg PO Q4H PRN PRN PRN Reason: Pain Score 3-10/10 Pantoprazole Sodium (Protonix) 20 mg PO DAILY [facility] Last Admin: 05/18/19 09:04 Dose: 20 mg Documented by: Senna/Docusate Sodium (Senokot-S, Lynne-Colace) 1 tablet PO DAILY PRN PRN Reason: CONSTIPATION Sodium Chloride () 10 - 40 ml IV UD PRN PRN Reason: SALINE FLUSH Last Admin: 05/16/19 06:58 Dose: 10 ml Documented by: Assessment/Plan Hospitalist note: I am seeing this patient in conjunction with Charleen Hernandez. Progress note above including physical examination and laboratory data reviewed and I concur with above treatment plan. Assessment and plan: #1 postoperative acute metabolic encephalopathy: Attributed to anesthesia and narcotics. Resolved. Again, patient is alert and noted x3, no complaints. Her vital signs are stable. Routine blood work reviewed, unremarkable. Reportedly, patient had similar symptoms with prior anesthesia in the past. She has no more confusion. For medical standpoint, patient is stable and can be discharged to SNF. No new medication added to her home medication list. #2 status post repair of posterior tibial tendon, flexor digitorum longus tendon and repair of spring ligament as well as repair of flexor hallux longus tendon: Postoperative day 3. She denied any right foot complaint. She started ambulating. She is on OxyIR PRN for pain, pain is well managed. Podiatry medicine is on the case. #3 other chronic medical problems: Stable, continue current medication as above. This note was generated with [employer] dictation software. It may contain incorrect words, spelling, and punctuation that were not noted in checking the note before signing. Code Visit Inpatient E&M: 62375 Subs Hosp L2
--- NOTE | 2019-05-18 10:45 | PHA.DC.MR ---
Pharmacy Service has performed discharge medication reconciliation for this patient upon transfer to [facility]. The patient's discharge medication list was reviewed for discrepancies and discrepancies were resolved. Home Medications Cholecalciferol (Vitamin D3) [Vitamin D3] 5,000 unit PO DAILY 07/07/15 Estradiol [Estrace (G)] 1 mg PO DAILY 07/07/15 Flaxseed Oil/[place] 3,6,9 [Sv Flaxseed Oil 1,300 mg Sftgl] 1 each PO BID 07/07/15 Folic Acid 0.4 mg PO DAILY@0800 07/07/15 Glucosam/Chondr-Msm6/Manganese [Glucosamine-Chondroitin Sftgl] 1 each PO DAILY 07/07/15 Lunarich 2 tab PO BID 07/07/15 Magnesium 250 mg PO DAILY 07/07/15 Niacin 100 mg PO DAILY 07/07/15 Red Yeast Rice 600 mg PO QHS 07/07/15 Tumeric 1 tab PO BID 07/07/15 Vitamin A 10,000 unit PO DAILY 07/07/15 Vitamin E 1,000 unit PO DAILY 07/07/15 Omeprazole [Prilosec] 20 mg PO DAILY 08/11/17 Atenolol 25 mg PO BID 05/26/18 Biotin 1 mg PO DAILY 05/26/18 Zolpidem Tartrate 10 mg PO QHS PRN 05/26/18 Nortriptyline HCl 150 mg PO QHS 05/27/18 Acetaminophen [Tylenol Tablet] 650 mg PO Q6H PRN PRN tablet 05/29/18 Meclizine HCl 25 mg PO Q6H PRN PRN 01/25/19 Relive Now 1 pkt PO DAILY 05/07/19 Enoxaparin [Lovenox] 40 mg SUBCUT DAILY@0600 syringe 05/18/19
--- NOTE | 2019-05-18 10:51 | CASEMGMT ---
ADRYAN faxed orders to [facility]. After Dr Anne sees patient she can go to [facility]. Plan: d/c to [facility] under skilled level of care on a convalescent stay. Patient's friend transported her via private vehicle. Valerie CALLOWAY SWIMMING POOL SALESPERSON
--- NOTE | 2019-05-18 11:08 | DCINST_ITS ---
Discharge Diet: No Restrictions Discharge Activity: - - stay completely non weight bearing to lower extremity Weight Bearing Status: No weight bearing - to right lower extremity Keep extremity elevated above heart level: Right Leg - lower extremity Call your doctor if your incision/area has: Continuous Slow Oozing, Sudden Increased Bleeding, Increased Pain/ Swelling, Increased Redness, Foul Smelling Discharge, Swelling at the incision site Call your doctor if you observe: Fever of 101 or Higher Cleanse incision/area with: Keep Dressing Clean & Dry, - - keep splint intact Allergies/Adverse Reactions: Allergies codeine Adverse Reaction (Verified 05/14/19 12:18) Nausea fluoxetine HCl [From Prozac] Adverse Reaction (Verified 05/14/19 12:18) shivers morphine Adverse Reaction (Verified 05/14/19 12:18) Nausea Medications to take at Discharge Cholecalciferol (Vitamin D3) [Vitamin D3] 5,000 unit PO DAILY 07/07/15 Estradiol [Estrace (G)] 1 mg PO DAILY 07/07/15 Flaxseed Oil/[place] 3,6,9 [Sv Flaxseed Oil 1,300 mg Sftgl] 1 each PO BID 07/07/15 Folic Acid 0.4 mg PO DAILY@0800 07/07/15 Glucosam/Chondr-Msm6/Manganese [Glucosamine-Chondroitin Sftgl] 1 each PO DAILY 07/07/15 Lunarich 2 tab PO BID 07/07/15 Magnesium 250 mg PO DAILY 07/07/15 Niacin 100 mg PO DAILY 07/07/15 Red Yeast Rice 600 mg PO QHS 07/07/15 Tumeric 1 tab PO BID 07/07/15 Vitamin A 10,000 unit PO DAILY 07/07/15 Vitamin E 1,000 unit PO DAILY 07/07/15 Omeprazole [Prilosec] 20 mg PO DAILY 08/11/17 Atenolol 25 mg PO BID 05/26/18 Biotin 1 mg PO DAILY 05/26/18 Zolpidem Tartrate 10 mg PO QHS PRN 05/26/18 Nortriptyline HCl 150 mg PO QHS 05/27/18 Acetaminophen [Tylenol Tablet] 650 mg PO Q6H PRN PRN tablet 05/29/18 Meclizine HCl 25 mg PO Q6H PRN PRN 01/25/19 Relive Now 1 pkt PO DAILY 05/07/19 Enoxaparin [Lovenox] 40 mg SUBCUT DAILY@0600 syringe 05/18/19 Primary Care Physician: Radha Chang MD [Primary Care Provider] - Please follow up with your Primary Care Physician in: 1-2 Weeks Test Results: Test results from this visit will be discussed in further detail at your follow-up appointment, if applicable. Please Follow Up With: Ruiz Arias DPM When: In office 05/21/2019 Proposed Discharge Date: 05/18/19
--- NOTE | 2019-05-18 11:15 | PCM.DC.SUM ---
Discharge Date and Diagnosis - Problem List Patient Problems: Active and Suspected Problems Walking difficulty due to ankle and foot (Acute) Hammer toe of right foot (Acute) Date of Admission: 05/14/19 Date of Discharge: 05/18/19 - Primary Discharge Diagnosis Active and Suspected Problems Walking difficulty due to ankle and foot (Acute) Hammer toe of right foot (Acute) - Secondary Discharge Diagnosis Chronic Problems HTN (hypertension) (Chronic) Anxiety and depression (Chronic) HLD (hyperlipidemia) (Chronic) Chronic constipation (Chronic) Osteoarthritis (Chronic) GERD (gastroesophageal reflux disease) (Chronic) Brain aneurysm (Chronic) Hospital Course and Treatment Imaging Results: Post-op x-rays: IMPRESSION: Anatomic alignment status post multiple orthopedic procedures. medicine OT PT Operations: - - 05/29/18 Open Reduction Internal Fixation of Right Trimalleolus Equivalent Ankle Fracture Summary of Care Provided: Per Dr. Arias's surgical indications, the patient is a 74 year old F that had symptomatic difficulty with gait/ambulation and pes planus foot deformity due to posterior tibial tendopathy/dysfunction. She has history of flatfoot, also had severe dislocated trimalleolar ankle fracture last year s/p ORIF. Ankle is doing well, but she has difficulty with gait/ambulation as noted above. Pre operative MRI showed tear of the posterior tibial tendon. She also has hammer toes and would like the 3rd digit hammer toe corrected. She has requested and elected to undergo surgical intervention. Procedure undergone was debridement/repair of posterior tibial tendon and flexor digitorum longus tendon, and repair of spring ligament, right. Flexor hallucis longus tendon transfer, right. Medial displacing calcaneal osteotomy, right. Right 3rd toe arthrodesis/correction of hammer toe deformity. This was performed May 14, 2019. The patient was admitted for post op pain control, observation and nursing facility placement. She Was Discharged Home and [facility] Friday with Dr. Arias. Condition at Discharge Is Stable.[] Patient Problems: Active and Suspected Problems Walking difficulty due to ankle and foot (Acute) Hammer toe of right foot (Acute) - Physical Exam Vitals/I&O's: Vital Signs Temp Pulse Resp BP Pulse Ox 98.5 F 87 16 136/69 H 97 05/18/19 09:40 05/18/19 09:40 05/18/19 09:40 05/18/19 09:40 05/18/19 09:40 Oxygen Delivery Method Room Air Weight: 73.7 kg Body Mass Index (BMI) 28.8 Finger Stick Blood Glucose 138 Intake and Output for Last 24 Hours 05/16/19 05/17/19 05/18/19 23:59 23:59 23:59 Intake Total 2055 / 2055 1460 / 1460 30 / 30 Output Total 800 / 800 Balance 1255 / 1255 1460 / 1460 30 30 General: Alert, Oriented x3, Cooperative, No apparent distress HEENT: Atraumatic Oral: Moist Mucosa Cardiovascular: Regular rate, Regular Rhythm Abdomen: Non Tender Extremities: No cyanosis, Capillary Refill Less than 3 Seconds, No Calf Tenderness, - - Pulses not tested as dressing was left intact Skin: - - The dressing and splints are clean, dry, and intact without strikethrough or odor or extending redness Musculoskeletal: No Tenderness to Palpation of Joints or Extremities, - - Active range of motion digits right foot Neurological: - - Lack of normal epicritic sensation to digits on right Psych/Mental Status: Normal Affect, Appropriate Current Medications Acetaminophen (Tylenol) 650 mg PO Q6H PRN PRN PRN Reason: Pain Score 1-10/10 Atenolol (Tenormin (Beta King)) 25 mg PO BID [facility] Last Admin: 05/18/19 09:05 Dose: 25 mg Documented by: Enoxaparin Sodium (Lovenox) 40 mg SC DAILY@0600 [facility] Last Admin: 05/18/19 06:20 Dose: 40 mg Documented by: Estradiol (Estrace (G)) 1 mg PO DAILY [facility] Last Admin: 05/18/19 09:04 Dose: 1 mg Documented by: Hydromorphone HCl (Dilaudid Inj) 1 mg IV Q3H PRN PRN PRN Reason: Pain Score 6-10/10 Nortriptyline HCl (Pamelor) 150 mg PO QHS [facility] Last Admin: 05/17/19 21:40 Dose: 150 mg Documented by: Ondansetron HCl (Zofran) 4 mg IV Q8H PRN PRN PRN Reason: Nausea Oxycodone HCl (Oxyir) 5 mg PO Q4H PRN PRN PRN Reason: Pain Score 3-10/10 Pantoprazole Sodium (Protonix) 20 mg PO DAILY [facility] Last Admin: 05/18/19 09:04 Dose: 20 mg Documented by: Senna/Docusate Sodium (Senokot-S, Lynne-Colace) 1 tablet PO DAILY PRN PRN Reason: CONSTIPATION Sodium Chloride () 10 - 40 ml IV UD PRN PRN Reason: SALINE FLUSH Last Admin: 05/16/19 06:58 Dose: 10 ml Documented by: Discharge Diet: No Restrictions Discharge Activity: - - stay completely non weight bearing to lower extremity Weight Bearing Status: No weight bearing - to right lower extremity Keep extremity elevated above heart level: Right Leg - lower extremity Call your doctor if your incision/area has: Continuous Slow Oozing, Sudden Increased Bleeding, Increased Pain/ Swelling, Increased Redness, Foul Smelling Discharge, Swelling at the incision site Call your doctor if you observe: Fever of 101 or Higher Cleanse incision/area with: Keep Dressing Clean & Dry, - - keep splint intact Home Medications: Medications to take at Discharge Cholecalciferol (Vitamin D3) [Vitamin D3] 5,000 unit PO DAILY 07/07/15 Estradiol [Estrace (G)] 1 mg PO DAILY 07/07/15 Flaxseed Oil/[place] 3,6,9 [Sv Flaxseed Oil 1,300 mg Sftgl] 1 each PO BID 07/07/15 Folic Acid 0.4 mg PO DAILY@0800 07/07/15 Glucosam/Chondr-Msm6/Manganese [Glucosamine-Chondroitin Sftgl] 1 each PO DAILY 07/07/15 Lunarich 2 tab PO BID 07/07/15 Magnesium 250 mg PO DAILY 07/07/15 Niacin 100 mg PO DAILY 07/07/15 Red Yeast Rice 600 mg PO QHS 07/07/15 Tumeric 1 tab PO BID 07/07/15 Vitamin A 10,000 unit PO DAILY 07/07/15 Vitamin E 1,000 unit PO DAILY 07/07/15 Omeprazole [Prilosec] 20 mg PO DAILY 08/11/17 Atenolol 25 mg PO BID 05/26/18 Biotin 1 mg PO DAILY 05/26/18 Zolpidem Tartrate 10 mg PO QHS PRN 05/26/18 Nortriptyline HCl 150 mg PO QHS 05/27/18 Acetaminophen [Tylenol Tablet] 650 mg PO Q6H PRN PRN tablet 05/29/18 Meclizine HCl 25 mg PO Q6H PRN PRN 01/25/19 Relive Now 1 pkt PO DAILY 05/07/19 Enoxaparin [Lovenox] 40 mg SUBCUT DAILY@0600 syringe 05/18/19 Primary Care Physician: Radha Chang MD [Primary Care Provider] - Please follow up with your Primary Care Physician in: 1-2 Weeks Please Follow Up With: Ruiz Arias DPM When: In office 05/21/2019 Disposition: [facility] facility Patient Condition:: Stable Medical Necessity - Tobacco Use Smoking Status: Never smoker Tobacco Use: Non-smoker Meaningful Use Info Meaningful Use Diagnoses (Choose all that apply): None applicable
--- NOTE | 2019-05-18 13:23 | CASEMGMT ---
Patient did get her friend to transport her to [place]. SW called [facility] and canceled transport for 3p. Valerie CALLOWAY BOAT RIGGER
== END 2019-05-18 13:12 | disposition skilled nursing facility (03) | DRG 500 ==
LOC: SDC 19:38 → MS3 19:38 → PCU 19:42
PROVIDERS: Family Medicine; Admitting Provider Podiatrist; Family Provider Internal Medicine; PCP Internal Medicine; Referring Provider Podiatrist; Visit Provider Hospitalist
PROC: 0QSL04Z Reposition Right Tarsal with Internal Fixation Device, Open Approach (ICD-10-PCS; CPT 28300; principal; 2019-05-14 13:15)
DX: M67.961 Unspecified disorder of synovium and tendon, right lower leg (principal); G92 Toxic encephalopathy; S86.111A Strain of other muscle(s) and tendon(s) of posterior muscle group at lower leg level, right leg, initial encounter; M20.41 Other hammer toe(s) (acquired), right foot; M21.41 Flat foot [pes planus] (acquired), right foot; I10 Essential (primary) hypertension; F32.9 Major depressive disorder, single episode, unspecified; F41.9 Anxiety disorder, unspecified; E78.5 Hyperlipidemia, unspecified; K21.9 Gastro-esophageal reflux disease without esophagitis; K59.09 Other constipation; M19.90 Unspecified osteoarthritis, unspecified site; I67.1 Cerebral aneurysm, nonruptured; T41.1X5A Adverse effect of intravenous anesthetics, initial encounter; T40.605A Adverse effect of unspecified narcotics, initial encounter
CPT/HCPCS: 36415; 73590; 73630; 76000; 80048; 85025; 88304; 97110; 97116; 97162; 97166; 97535; C1713; J7120; A4216; J2405

== ENCOUNTER 2019-10-13 16:00 | Outpatient (RCR) | payer MEDICARE, SELFPAY ==
[2019-05-14 20:58] VITALS: BMI 28.8
--- NOTE | 2019-08-02 16:19 | HP.PTEVAL_ITS ---
Patient's Visit Information QUINCY KRAUSE is a 74 year old F referred to Physical Therapy by Ruiz Arias DPM with a diagnosis of S/P POSTERIOR TIBIAL FHL TENDON TEAR ,FDL FHL TENDON TRANSFER ,CALNEAL OSTE. Date of Evaluation: 08/02/19 Physical Therapist: Jaime Ferguson, PT, Cert MDT, OCS - Visit Plan Frequency: 2x /Week Duration: 4 Weeks Plan: PT INTERVENTIONS ROM ANKLE ,FLEXABLITY CALF,STRENGTHENING ANKLE ,HIP/KNEE STRENGTHENING ,PROPRIOCEPTION - Subjective Subjective: This 74 y/o female presents to physical therapy with posterior tibial tendon dysfunction with posterior tendon tear repair FHL tendon transfer,calcaneal osteotomy. Patient had surgery on 05/14/[address] Arias . Patient had soft cast with NWB RLE with fww. [place] [facility] [place] then d/c . Patient d/c to home with NWB RLE then eventually WBAT with cam boot eventually able to start walking with regular shoe with WBAT ~2WKS ago when patient seen Dr Arias. Patient did also ghave Right ORIF ankle last year 06/16/18. Patient has knee pain and mild ankle pain but has edema. Patient has impairments with extensded walking and standing . Difficulty with stairs. Patient c/o paratghesia/tingling foot right side.Patient sleeping okay at night. Patient symptoms affects QOL and function ADL'S ,housework and function. Patient surgery affects QOL .Patient use ankle brace. SOCIAL: single. VOCATION: retired - Objective POSTURE: pes planus,calcaneal valgus. GAIT: antalgic right ankle with decrease stance heel strike toe off. NEURO: c/o parathesia/tingling,light touch diminished right lower leg. EDEMA: trimalloelor joint line 65 cm. AROM: dorsiflexion -10 degrees,planterflexion 35 degrees,eversion 0 dgrees,inversion 5 degrees. MMT: ankle dorsiflexion 4-/5,peroneus/posterior tbials 4-/5 , gastrosoleus 2+/5. PROPRIOCETION: poor - Goals Goal 1:: Independant with HEP Goal Time Frame: 4-6 Weeks Goal 2:: Patient to normalize gait Goal Time Frame: 4-6 Weeks Goal 3:: Patient to improve AROM ankle right by 5 degrees or> to improve gait. Goal Time Frame: 4-6 Weeks Goal 4:: Patient to increase strength ankle by 4/5 except G-S 3+/5 to improve gait. Goal Time Frame: 4-6 Weeks Goal 5:: Patient improve proprioception by 30sec to improve gait. Goal Time Frame: 4-6 Weeks Goal 6:: Patient to improve LFES score by 5-10 points to improve QOL. Goal Time Frame: 4-6 Weeks - Rehabilitation Potential Physical Therapy Diagnosis: Patient underwent s/p debride/ repair of posterior digitorum longus ,and repair of spring ligament, FHL tendon transfer ,medial displacing clcaneal osteotomy right ,right 3rd toe arthrodesis,correction of hammer toe on 05/14/19 with decrease ROM ,strength ,proprioception impairs gait and function Rehabilitation Potential: Good - Anticipated Interventions Patient/Client Instruction: Educate patient on: Condition, Plan of Care For the Purpose of:: To decrease pain, To increase ROM, To improve muscle performance and motor function, To improve ability to perform ADL's, To increase tolerance to activity/condition/position, To improve performance and independence with ADL's, To improve ability of physical actions for home/com munity/work/leisure, To improve gait and locomotor functions, To improve health of tissue, To decrease soft tissue restriction, To increase flexibility/ROM, To improve balance, To improve safety with gait, To improve ability to perform tasks related to life management Therapeutic Exercise to Include: Strength training, Balance training, Flexibilty training, Gait and locomotor training, Passive ROM, Active ROM Comment: ANKLE KNEE/HIP For the Purpose of:: To decrease pain, To increase ROM, To improve muscle performance and motor function, To improve ability to perform ADL's, To increase tolerance to activity/condition/position, To improve ability of physical actions for home/community/work/leisure, To improve health of tissue, To decrease soft tissue restriction, To increase flexibility/ROM, To improve endurance, To improve balance, To improve ability to perform tasks related to life management Thank you for the opportunity to evaluate your patient. For Medicare and Medicare HMO plans, please review the plan of care and approve it. It will need to be FAXED BACK to us at [phone] for Medicare purposes. For Medicare only, by signing this I certify the plan of care. Please let me know if there are questions or concerns regarding this plan of care. Physician Signature: Date:
--- NOTE | 2019-09-29 16:57 | HP.PTREVAL_ITS ---
Dr. Ruiz Arias, DPM, It has been my pleasure to treat QUINCY KRAUSE over the last 10 visits for S/P POSTERIOR TIBIAL FHL TENDON TEAR ,FDL FHL TENDON TRANSFER ,CALNEAL OSTE. Please see the progress note below for an update on the physical therapy plan of care! Subjective: Knee is hurting Objective/Function: POSTURE: calacaneal valgus ,ER leg,valgus knee. GAIT: antalgic gait right leg ,valgus knee. AROM: DF 5 degrees,PF 60 degrees,inversion 20 degrees,EV 5 degrees. MMT: ankle anterior tib 4- /5,peroneous ,posterior tib 4-/5 ,G-S 3+/5 Plan Plan: CONT WITH POC 2X/4 WEEKS PT INTERVENTIONS ROM ANKLE ,FLEXABLITY CALF,STRENGTHENING ANKLE ,HIP/KNEE STRENGTHENING ,PROPRIOCEPTION Goals Goal 1:: Independant with HEP Goal Time Frame: 4-6 Weeks Goal 2:: Patient to normalize gait Goal Time Frame: 4-6 Weeks Goal 3:: Patient to improve AROM ankle right by 5 degrees or> to improve gait. Goal Time Frame: 4-6 Weeks Goal 4:: Patient to increase strength ankle by 4/5 except G-S 3+/5 to improve gait. Goal Time Frame: 4-6 Weeks Goal 5:: Patient improve proprioception by 30sec to improve gait. Goal Time Frame: 4-6 Weeks Goal 6:: Patient to improve LFES score by 5-10 points to improve QOL. Goal Time Frame: 4-6 Weeks Anticipated Interventions Patient/Client Instruction: Educate patient on: Condition, Plan of Care For the Purpose of:: To decrease pain, To increase ROM, To improve muscle performance and motor function, To improve ability to perform ADL's, To increase tolerance to activity/condition/position, To improve performance and independence with ADL's, To improve ability of physical actions for home/community/work/leisure, To improve gait and locomotor functions, To improve health of tissue, To decrease soft tissue restriction, To increase flexibility/ROM, To improve balance, To improve safety with gait, To improve ability to perform tasks related to life management Therapeutic Exercise to Include: Strength training, Balance training, Flexibilty training, Gait and locomotor training, Passive ROM, Active ROM Comment: ANKLE KNEE/HIP For the Purpose of:: To decrease pain, To increase ROM, To improve muscle performance and motor function, To improve ability to perform ADL's, To increase tolerance to activity/condition/position, To improve ability of physical actions for home/community/work/leisure, To improve health of tissue, To decrease soft tissue restriction, To increase flexibility/ROM, To improve endurance, To improve balance, To improve ability to perform tasks related to life management Please do not hesitate to contact me at [phone] by phone or if you have questions or concerns regarding this new plan of care! Sincerely, Jaime Ferguson, PT, Cert MDT, OCS
--- NOTE | 2020-01-13 10:27 | HP.PT.NRP ---
QUINCY KRAUSE was seen in my office for initial evaluation on 08/02/19. The following Plan of Care was established for this patient: Initial Frequency: 2x /Week Initial Duration: 4 Weeks Patient/Client Instruction: Educate patient on: Condition, Plan of Care For the Purpose of:: To decrease pain, To increase ROM, To improve muscle performance and motor function, To improve ability to perform ADL's, To increase tolerance to activity/condition/position, To improve performance and independence with ADL's, To improve ability of physical actions for home/community/work/leisure, To improve gait and locomotor functions, To improve health of tissue, To decrease soft tissue restriction, To increase flexibility/ROM, To improve balance, To improve safety with gait, To improve ability to perform tasks related to life management Therapeutic Exercise to Include: Strength training, Balance training, Flexibilty training, Gait and locomotor training, Passive ROM, Active ROM For the Purpose of:: To decrease pain, To increase ROM, To improve muscle performance and motor function, To improve ability to perform ADL's, To increase tolerance to activity/condition/position, To improve ability of physical actions for home/community/work/leisure, To improve health of tissue, To decrease soft tissue restriction, To increase flexibility/ROM, To improve endurance, To improve balance, To improve ability to perform tasks related to life management This patient was last seen in our office . Pertinent comments regarding their Physical therapy will appear below: Patient seen for PT for posterior tendon repair,THL transfer. PT focus on ROM ,strengthning,gait and balance training. Patient progressing well towars goals thus d/c At this point I will be discontinuing this patient from physical therapy. I would be happy to see this patient again in the future if found appropriate by the physician. Thank you! Jaime Ferguson, PT, Cert MDT, OCS
== END 2019-10-13 19:00 | disposition home or self-care (01) ==
LOC: PT 16:00
PROVIDERS: PCP Internal Medicine; Referring Provider Podiatrist; Visit Provider Podiatrist
DX: Z98.890 Other specified postprocedural states (principal)
CPT/HCPCS: 97110; 97162

== ENCOUNTER 2021-02-02 13:16 | Inpatient (IN) | payer MEDICARE, SELFPAY ==
[2021-02-02 13:24] VITALS: BP 152/58; PULSE 70; RESP 18; TEMP 36.7; O2SAT 95; BMI 28.7
[2021-02-02 19:15] VITALS: O2SAT 98
[2021-02-02 19:38] VITALS: BP 153/82; PULSE 71; RESP 18; TEMP 36.8; O2SAT 94
--- NOTE | 2021-02-02 21:26 | NURSING ---
STRAIGHT CATHED FORF 825 ML OF CLOUDY YELLOW URINE WITH #15 BULGARIAN RED RUBBER CATHETER. PT TOLERATES PROCEDURE WELL.
[2021-02-02] MEDS: QUEtiapine 25 MG Tablet PO (23:23)
[2021-02-02] MEDS: Senna/Docusate Sodium 1 Tablet 2 TABLET PO (23:23)
[2021-02-02] MEDS: Acetaminophen 325 MG Tablet 650 MG PO (23:35)
[2021-02-02] MEDS: ALPRAZolam 0.5 MG Tablet PO (23:35)
[2021-02-03] MEDS: Heparin Injection (Vial) 5,000 UNIT/ML VIAL 5000 UNIT SC ×3 (00:14→21:01)
--- NOTE | 2021-02-03 06:17 | NURSING ---
PT STRAIGHT CATHED WITH #15 MALAY RED RUBBER CATHETER FOR 750ML OF CLEAR YELLOW URINE, NO ODOR. PT TOLERATE PROCEDURE WELL.
[2021-02-03] MEDS: Sodium Chloride 1 GM Tablet 3 GM PO ×3 (06:22→21:01)
[2021-02-03 07:03] VITALS: O2SAT 96
[2021-02-03 07:37] VITALS: BP 152/68; PULSE 66; RESP 16; TEMP 36.6; O2SAT 98
[2021-02-03] MEDS: Senna/Docusate Sodium 1 Tablet 2 TABLET PO ×2 (08:10→21:01)
[2021-02-03] MEDS: Vitamin E 400 UNITS Capsule 800 UNITS PO (08:10)
[2021-02-03] MEDS: Atenolol 25 MG Tablet PO ×2 (08:10→21:01)
[2021-02-03] MEDS: Acetaminophen 325 MG Tablet 650 MG PO ×2 (08:15→17:41)
--- NOTE | 2021-02-03 09:35 | EX.PCM.HP.RE ---
HPI - General General Date of Admission: 02/02/21 HPI Narrative QUINCY KRAUSE, is a 76 YO F with a PMH of multiple recurring cerebral aneurysms (has had coiling in the past), anxiety/depression, DM II, history of narrow angle glaucoma, infiltrating ductal L Breast CA (S/P lumpectomy), HTN, OA, obesity and GERD who was scheduled for ELECTIVE cerebral angiogram with web embolization of a KNOWN left SCA aneurysm. The procedure was complicated by extravasation of contrast during the procedure. She was admitted to the neuro ICU for SAH/IVH post embolization. She developed hydrocephalus and had an EVD placed. The drain was removed on 01/30/21. While in the hospital she developed a UTI related to Jose placement for urine retention and was treated with 3 days of Bactrim. She also had hyponatremia and was started on NACL tabs 3 GM TID. She was given a 3% saline bolus and started on a continuous 2% Saline infusion. NACL supplementation was decreased to 2 GM TID 1 day prior to transfer to acute inpt rehab on 02/02/21. When the drain was removed she was started on Heparin 5,000 units Q 12H for DVT prophylaxis. Prior to that she had SCD's and RADHA hose. She has been delirious and was placed on Seroquel at while at [facility]. She was seen by PT/OT/ST and transfer to a acute rehab unit was recommended. She arrived at the inpt acute rehab unit at [facility] on 02/02/21 and will have 3 hours of therapy daily to restore independence/function at or near her level of function prior to the SAH. [facility] Medical History (Updated 02/05/21 @ 12:[address] Brooke Albarran DO) Brain aneurysm Diabetes mellitus type 2 in nonobese HTN (hypertension) Hyponatremia Infiltrating ductal carcinoma of left breast IVH (intraventricular hemorrhage) Normochromic normocytic anemia Obstructive hydrocephalus SAH (subarachnoid hemorrhage) Home Medications Tumeric 1 tab PO BID 07/07/15 [History Last Taken 05/26/18] estradiol 1 mg PO DAILY 07/07/15 [History Last Taken 05/26/18] vitamin E 1,000 unit PO DAILY 07/07/15 [History Last Taken 05/26/18] atenolol 25 mg PO BID 05/26/18 [History Last Taken 05/14/19 08:30] zolpidem 10 mg PO QHS PRN 05/26/18 [History Last Taken 05/19/18] meclizine 25 mg PO Q6H PRN PRN 01/25/19 [History Last Taken Unknown] acetaminophen [Tylenol] 650 mg PO Q4H PRN PRN 02/02/21 [History Last Taken Unknown] alprazolam [Xanax] 0.5 mg PO BID PRN 02/02/21 [History Last Taken Unknown] alum-mag hydroxide-simeth [Mylanta] 30 ml PO Q6H PRN PRN 02/02/21 [History Last Taken Unknown] anastrozole [Arimidex] 1 mg PO DAILY 02/02/21 [History Last Taken Unknown] ascorbic acid (vitamin C) 500 mg PO DAILY 02/02/21 [History Last Taken Unknown] aspirin 81 mg PO DAILY 02/02/21 [History Last Taken Unknown] folic acid 0.4 mg PO DAILY 02/02/21 [History Last Taken Unknown] [id number]-st [Glucosamine Chondroitin PLUS] 1 cap PO DAILY 02/02/21 [History Last Taken Unknown] heparin (porcine) 5,000 unit SUBCUT Q12H 02/02/21 [History Last Taken Unknown] lidocaine [Lidoderm] 1 patch TOPICAL DAILY 02/02/21 [History Last Taken Unknown] lisinopril 20 mg PO DAILY 02/02/21 [History Last Taken Unknown] niacin 250 mg PO DAILY 02/02/21 [History Last Taken Unknown] nortriptyline [Pamelor] 150 mg PO QHS 02/02/21 [History Last Taken Unknown] polyethylene glycol 3350 [Miralax] 17 g PO DAILY 02/02/21 [History Last Taken Unknown] quetiapine [Seroquel] 25 mg PO QHS 02/02/21 [History Last Taken Unknown] sodium chloride 3,000 mg PO TID 02/02/21 [History Last Taken Unknown] Allergy/AdvReac Type Severity Reaction Status Date / Time codeine AdvReac Nausea Verified 05/14/19 12:18 fluoxetine HCl [From Prozac] AdvReac shivers Verified 05/14/19 12:18 morphine AdvReac Nausea Verified 05/14/19 12:18 Family History (Updated 02/03/21 @ 10:[address] Brooke Albarran DO) Mother Breast cancer Hypertension Alzheimers disease Aunt Breast cancer Father CAD (coronary artery disease) Sister Alzheimers disease Other Bleeding disorder Family History unable to obtain Surgical History (Updated 02/05/21 @ 12:[address] Brooke Albarran DO) Cataract extraction status H/O laser iridotomy History of hysterectomy History of total knee arthroplasty Hx of craniotomy S/P breast lumpectomy S/P coil embolization of cerebral aneurysm Surgical History unable to obtain Social History Smoking Status: Never smoker ROS Constitutional Constitutional: Reports fatigue and weakness; Denies anorexia, change in weight, chills, fever(s) or night sweats Eyes Eyes: Denies blurry vision, eye pain, irritation or loss of vision ENT HEENT: Denies dysphagia, headache(s), hearing loss, nasal congestion or sore throat Cardiovascular Cardiovascular: Denies chest pain, dyspnea on exertion, edema, lightheadedness or palpitations Respiratory/Chest Respiratory/Chest: Denies cough, dyspnea, shortness of breath at rest or wheezing Gastrointestinal Gastrointestinal: Denies abdominal pain, constipation, diarrhea, dyspepsia, hematemesis, hematochezia, nausea or vomiting Genitourinary Genitourinary: Reports other Details: urine retention ; Denies dysuria Musculoskeletal Musculoskeletal: Denies back pain, joint pain, joint swelling or neck pain Neurologic Neurologic: Reports confusion and weakness; Denies disequilibrium, headache(s), paresthesias, seizures or tremor(s) Psychiatric Psychiatric: Reports anxiety and depression; Denies homicidal ideation or suicidal ideation Endocrine Endocrinology: Denies change in body appearance Hematologic/Lymphatic Hematologic/Lymphatic: Denies easy bleeding, easy bruising or lymphadenopathy Allergic/Immunologic Allergic/Immunologic: Denies rhinitis, eczemia or asthma Vital Signs Vital Signs Vital Signs: 02/02/21 13:24 02/02/21 15:53 02/02/21 19:15 Temperature 98.1 F Temperature Source Oral Pulse Rate 70 Pulse Strength Normal (2+) Respiratory Rate 18 Respiratory Depth Respiratory Pattern Blood Pressure 152/58 H Blood Pressure Mean 89 Blood Pressure Source Monitor Blood Pressure Position Semi-Fowlers Blood Pressure Location Right Forearm Pulse Ox 95 98 Oxygen Delivery Method Room Air Room Air 02/02/21 19:38 02/02/21 22:00 02/03/21 07:03 Temperature 98.2 F Temperature Source Oral Pulse Rate 71 Pulse Strength Respiratory Rate 18 Respiratory Depth Normal Respiratory Pattern Normal Blood Pressure 153/82 H Blood Pressure Mean 105 Blood Pressure Source Monitor Blood Pressure Position Sitting Blood Pressure Location Right Arm Pulse Ox 94 96 Oxygen Delivery Method Room Air Room Air 02/03/21 07:37 Temperature 97.9 F Temperature Source Oral Pulse Rate 66 Pulse Strength Respiratory Rate 16 Respiratory Depth Respiratory Pattern Blood Pressure 152/68 H Blood Pressure Mean 96 Blood Pressure Source Monitor Blood Pressure Position Semi-Fowlers Blood Pressure Location Right Arm Pulse Ox 98 Oxygen Delivery Method Room Air Weight Weight: 164 lb 14.492 oz Body Mass Index (BMI) 28.7 Indicators for Scoring Admitted with or Primary Diagnosis of CVA/Stroke: No Hx of CVA/Stroke: No Physical Exam Narrative She is alert and answering my questions. She know that she is in [place] and thinks she is in the hospital. She can tell me her name, but she does not know her age or the year. She did tell me it is January. Const no apparent distress and well nourished General Appearance: cooperative HEENT normocephalic HEENT Narrative: there is a cicatrix on the scalp from a previous craniectomy. Mouth: dry mucous membranes Eyes PERRL and EOMs intact bilaterally Neck No nuchal rigidity, supple and no carotid bruits Lymph Lymphatic: no lymphadenopathy noted Resp normal respiratory effort and clear to auscultation bilaterally Effort and Inspection: Negative for tachypneic, respiratory distress, labored or uses accessory muscles Auscultation: Negative for rales, rhonchi or wheezes Cardio regular rate, regular rhythm, S1 normal heart sound, S2 normal heart sound, no murmurs, no rub and no gallops GI normal to inspection, nondistended, normoactive bowel sounds, soft to palpation and non-tender GI Narrative: No guarding with palpation Extremity no clubbing, cyanosis or edema Skin Rashes: no rashes Neuro CN's II-XII intact bilaterally Neuro Narrative: lose her balance to the R and is leaning to the R when ambulating Motor Exam: general weakness Psych cooperative Results Lab / Micro Data Result Diagrams: 02/03/21 09:16 02/05/21 05:49 Assessment & Plan Assessment/Plan (1) Physical debility: (2) Brain aneurysm: (3) S/P coil embolization of cerebral aneurysm: (4) IVH (intraventricular hemorrhage): (5) SAH (subarachnoid hemorrhage): (6) Encephalopathy acute: (7) Hyponatremia: (8) HTN (hypertension): QUALIFIERS: Hypertension type: essential hypertension Qualified Code(s): I10 - Essential (primary) hypertension (9) Anxiety and depression: (10) HLD (hyperlipidemia): QUALIFIERS: Hyperlipidemia type: unspecified Qualified Code(s): E78.5 - Hyperlipidemia, unspecified (11) Chronic constipation: (12) Osteoarthritis: QUALIFIERS: Osteoarthritis location: unspecified site Osteoarthritis type: unspecified Qualified Code(s): M19.90 - Unspecified osteoarthritis, unspecified site (13) GERD (gastroesophageal reflux disease): QUALIFIERS: Esophagitis presence: esophagitis presence not specified Qualified Code(s): K21.9 - Gastro-esophageal reflux disease without esophagitis (14) Diabetes mellitus type 2 in nonobese: (15) Obstructive hydrocephalus: (16) Infiltrating ductal carcinoma of left breast: (17) Normochromic normocytic anemia: PLAN: PLAN PT for gait stability OT for ADL's ST for evaluation Analgesics as needed Bowel protocol Fall precautions Assess for Anxiety/Depression GI prophylaxis with Protonix DVT prophylaxis with RADHA hose and heparin 5000 units subcu every 12 hours. Follow up with PCP, neurosurgery following DC from IP Rehab Continue the Seroquel for now. BP is running a little high......will adjust meds as needed to keep the systolic <135 and the diastolic < 80 Charges/Coding Visit Charges Inpatient E&M: 23222 Init Hosp L3
[2021-02-03 09:49] LABS: Absolute Lymphocyte Count 1.15 X10^3/uL (0.83-4.51); Absolute Neutrophil Count 8.7 X10^3/uL (2.0-7.7); Basophil# 0.08 X10^3/uL; Basophil% 0.7 % (0-1); Eosinophils% 2.7 % (0-5); Hematocrit 32.9 % (37-47); Hemoglobin 10.8 g/dL (12.0-15.0); Lymphocyte # 1.15 X10^3/ul (0.83-4.51); Lymphocyte % 10.3 % (19-41); Mean Corp Hgb Conc 32.8 g/dL (32-36); Mean Corpuscular Hgb 30.9 pg (27.0-32.0); Mean Corpuscular Volume 94.3 fL (81-99); Mean Platelet Vol. 8.5 fl (6.2-12.0); Monocyte# 0.74 X10^3/uL; Monocyte% 6.7 % (0-10); NRBC Flagged by Analyzer 0 % (0-5); Neutrophil % 78.3 % (47-70); Platelet Count 379 K/mm3 (150-450); RBC Distribution Width CV 13.9 % (11.6-14.6); RBC Distribution Width SD 47.7 fl (35.1-43.9); Red Blood Count 3.49 M/mm3 (4.2-5.4); White Blood Count 11.1 K/mm3 (4.4-11.0)
[2021-02-03 10:14] LABS: ALB/GLOB Ratio 0.7 RATIO (0.9-2.4); AST(SGOT) 23 U/L (15-37); Alanine Aminotransfer ALT/SGPT 34 U/L (13-56); Albumin, Serum 2.7 g/dL (3.2-5.0); Alkaline Phosphatase 52 U/L (45-117); Anion Gap 5 (5-15); BUN 24 mg/dL (7-18); BUN/Creat Ratio 37.4 RATIO (10-20); Calcium,Total 8.5 mg/dL (8.5-10.1); Chloride 101 mmol/L (98-107); Creatinine, Serum 0.64 mg/dL (0.55-1.02); EST Glomerular Filtration Rate 96 mL/min (>60); Est Glom Filt Rate - Afr Amer 116 mL/min (>60); Estimated Creatinine Clearance 40.21 ml/min; Globulin 3.9 g/dL (2.2-4.2); Glucose 164 mg/dL (74-106); Magnesium 2.3 mg/dL (1.6-2.6); Potassium 4.4 mmol/L (3.5-5.1); Protein, Total 6.6 g/dL (6.4-8.2); Sodium Level 133 mmol/L (136-145)
--- NOTE | 2021-02-03 10:18 | PCM.RU.PYE ---
Admission Information Primary Diagnosis:: Debility due to SAH/IVH complicated by obstructive hydrocephalus, delirium and hyponatremia Actual Problem List:: Falls, Pain, ALteration in Cmfrt, Cognitve Impr/Memory Loss, Depression, Bowel, Constipation, Alteration in Sleep, Mobility Impaired, Self Care Deficit, Diabetes, Hyperglycemia, BP, Hypertension, Fluid Change-Dehydration and Alteration-Leisure Activ. Potential Problem List:: DVT, Bleeding, Infection, UTI, Aspiration, Falls, Skin Integrity and Depression Risk of Complications DVT: RADHA Hose and - (Heparin 5000 units subcutaneously every 12 hours) Bleeding: Monitor Lab Values, Nursing to Teach Precautions for anti-coagulation therapy., Wound, if applicable, to be assessed every shift. and Stroke patients assessed for lethargy or change in status. Infection: Clinical Staff to Monitor for S/S of infection: and S/S of infection include fever, redness, warmth, etc. Urinary Tract Infection: Monitor for frequency, burning, discomfort, or incontinence. and Nursing will obtain urine sample for urinalysis and C&S when ordered. Aspiration: Clinical staff will monitor for coughing, drooling, congestion., Speech will evaluate swallowing and dsyphasia. and Nursing will monitor patient swallowing during meals. Falls: Patient will be evaluated for Fall Precautions and Patient will be placed on Fall Precautions as indicated per protocol. Skin Breakdown: Nursing will assess skin daily using assessment tool. and Nursing will place on Skin Breakdown Precautions as indicated. Pain: Clinical staff will assess patient's pain level per protocol., Medications will be given, if needed, and the pain level reassessed. and Other methods: Massage, distraction, decrease stimulus, etc. used PRN. Plan of Care Patient requires physician specializing in physical medicine and rehab oversight to provide close medical supervision of rehab issues including: Pain Management, Sleep Problems, Bowel and Bladder, Medical and co-morbidity Management, DVT prophylaxis, Rehabilitation Leadership and Coordination of treatment team Patient needs Physical Therapy: For a minimum of 1 hour and At least 5 out of 7 days Patient needs Physical Therapy to improve:: Mobility, Strengthening, Transfers, Stretching, ROM, Endurance, Stairs, Gait and Balance Patient needs Occupational Therapy: For a minimum of 1 hour and At least 5 out of 7 days Patient needs Occupational Therapy to improve ADL's incl.: Eating, Grooming, Bathing, Dressing, Toileting, Toilet transfers, Community Reintegration, Higher functioning activities, Household tasks, Adaptive Equipment, Splinting and Other activities as determined Patient requires speech therapy: For a minimum of 1 hour and At least 5 out of 7 days Patient requires speech therapy for: Swallowing, Cognition, Language Skills and Compensatory Strategies Patient requires 24/7 Rehabilitation Nursing for: Pain Issues, Identifying and preventing risk factors, Monitoring and reporting current medical conditions, Assisting with ambulation, transfer, and all ADL's, Teaching patients about disease process and medications, Family teaching, Providing safe environment, Bowel and Bladder Issues, Skin integrity and Medication Management Patient needs Manufacturing Cost Estimator/ Case Management for: Discharge Planning, Arranging Home Equipment or Services and Family Interventions Patient needs Dietary and Nutrition Services for: Adequate Nutrition, Nutritional Supplements and Nutritional Education Goals Patient will remain: free from falls and or injury at time of discharge. Patient will perform bed mobility at: MOD I level of assist. Patient will complete transfers from bed to chair at: MOD I level of assist. Patient will ambulate: - (300 feet with least restrictive device at standby assist on various surfaces) Patient will complete upper body dressing at: MOD I level of assist. Patient will complete lower body dressing at: MOD I level of assist. Patient will complete toileting at: MOD I level of assist. Patient will perform bathing at: MOD I level of assist. Patient will complete grooming at: MOD I level of assist. Patient will complete home management skills at: MOD I level of assist. Patient will achieve: - (1 curb step) Patient will have pain level of: of 3 or less Patient's skin will: remain intact Patient will receive: adequate nutrition. Discharge Planning Pt Prognosis for Sig. Practical Improv. w/in Reasonable Time: Good Estimated Length of stay (days): 21 Anticipated D/C Destination: TBD Was Preadmission Assessment Accurate?: Yes
[2021-02-03] MEDS: Ascorbic Acid 500 MG Tablet PO (10:24)
[2021-02-03] MEDS: Anastrozole 1 MG TABLET PO (10:24)
[2021-02-03] MEDS: Folic Acid 1 MG Tablet 0.5 MG PO (10:25)
[2021-02-03] MEDS: Aspirin E.C. 81 MG Tablet PO (10:25)
[2021-02-03] MEDS: Lisinopril 20 MG Tablet PO (10:26)
[2021-02-03] MEDS: Lidocaine 5% Patch 1 PATCH TOPICAL (10:45)
[2021-02-03 11:42] LABS: Hemoglobin A1c 6.4 % (3.8-5.6)
[2021-02-03] MEDS: QUEtiapine 25 MG Tablet PO (21:00)
[2021-02-03] MEDS: Nortriptyline 25 MG Capsule 150 MG PO (21:01)
[2021-02-03] MEDS: ALPRAZolam 0.5 MG Tablet PO (21:06)
--- NOTE | 2021-02-03 21:15 | NURSING ---
Administered patient's HS meds whole in applesauce. Patient able to take medications without difficulty. Approximately 10 minutes later, while charting patient's assessment, patient had large pink colored emesis. Patient was in upright sitting position at this time. Patient washed up and changed. Lung sounds CTA. Patient denies any other needs.
[2021-02-03 21:16] VITALS: BP 178/79; PULSE 70; RESP 16; TEMP 36.5; O2SAT 98
--- NOTE | 2021-02-04 01:42 | NURSING ---
Addendum entered by Rachel Calabrese 02/04/21 02:54: Urine clear and normal odor. 16 [place] Ag placed. Original Note: pt up to bsc with urgency but unable to void more than 50cc. Bladder scanned for 978. AG placed and 975 output emptied from AG. PT tolerated well.
[2021-02-04] MEDS: Sodium Chloride 1 GM Tablet 3 GM PO ×3 (05:33→22:49)
[2021-02-04 06:50] VITALS: O2SAT 95
[2021-02-04 07:20] VITALS: BP 174/78; PULSE 72; RESP 16; TEMP 36.7; O2SAT 98
[2021-02-04] MEDS: ALPRAZolam 0.5 MG Tablet PO (07:58)
[2021-02-04] MEDS: Lidocaine 5% Patch 1 PATCH TOPICAL (07:58)
[2021-02-04] MEDS: Anastrozole 1 MG TABLET PO (07:58)
[2021-02-04] MEDS: Senna/Docusate Sodium 1 Tablet 2 TABLET PO ×2 (07:59→22:49)
[2021-02-04] MEDS: Vitamin E 400 UNITS Capsule 800 UNITS PO (07:59)
[2021-02-04] MEDS: Atenolol 25 MG Tablet PO ×2 (07:59→22:10)
[2021-02-04] MEDS: Folic Acid 1 MG Tablet 0.5 MG PO (08:00)
[2021-02-04] MEDS: Aspirin E.C. 81 MG Tablet PO (08:00)
[2021-02-04] MEDS: Polyethylene Glycol 3350 17 GM PACKET PO (08:01)
[2021-02-04] MEDS: Lisinopril 20 MG Tablet PO ×2 (08:02→22:13)
[2021-02-04] MEDS: Ascorbic Acid 500 MG Tablet PO (08:02)
[2021-02-04] MEDS: Heparin Injection (Vial) 5,000 UNIT/ML VIAL 5000 UNIT SC ×2 (08:03→22:09)
[2021-02-04] MEDS: Acetaminophen 325 MG Tablet 650 MG PO (08:05)
--- NOTE | 2021-02-04 14:38 | PCM.PN.BLA ---
Progress Note Afebrile VSS-the blood pressure is consistently above goal since admission to rehab and today the blood pressure is 174/78. Heart rate is within normal limits. Maintaining appropriate oxygen saturation on RA Oral intake is poor Discussed with nursing - no problems that need addressed Reviewed the PT/OT/ST notes - she is working with the therapists but is not able to retain instructions given to her for more than a few minutes Medication list reviewed. Physical Exam Const no apparent distress and average body habitus Constitutional Narrative: she is drowsy today General Appearance: cooperative Eyes PERRL, EOMs intact bilaterally, conjunctivae normal and no scleral icterus Resp normal respiratory effort and clear to auscultation bilaterally Effort and Inspection: able to speak in complete sentences Cardio regular rate, regular rhythm, S1 normal heart sound, S2 normal heart sound and no gallops GI normal to inspection, nondistended, normoactive bowel sounds, soft to palpation, non-tender and non-distended Extremity no calf tenderness Extremity Narrative: mild ankle edema controlled by the RADHA hose Skin General Skin Exam: no breakdown Rashes: no rashes Neuro Neuro Narrative: She is oriented only to person today. She is drowsy while I am talking with her. she can move all extremities but she does not initiate activity, like eating. Assessment & Plan Assessment/Plan (1) HTN (hypertension): QUALIFIERS: Hypertension type: essential hypertension Qualified Code(s): I10 - Essential (primary) hypertension (2) Diabetes: (3) Hyponatremia: (4) IVH (intraventricular hemorrhage): (5) SAH (subarachnoid hemorrhage): (6) S/P coil embolization of cerebral aneurysm: PLAN: 1. Add carb control to the present diet and check accuchecks AC and HS for the next 48H. With recent SAH/IVH would like all BS's to be less than 180 2. Increase the Lisinopril to 20 mg BID to get the systolic < 135 and the diastolic less than 80. 3. Recheck a BMP in the AM 4. NS at 100 cc/hr x 2 liters. Visit Charges Inpatient E&M: 67358 Subs Hosp L2
[2021-02-04 16:31] LABS: Bedside Glucose 157 mg/dL (70-110)
[2021-02-04] MEDS: 0.9% Normal Saline 1,000 ML 100 ML IV (17:21)
[2021-02-04] MEDS: Ondansetron ODT 4 MG Tablet PO (20:39)
[2021-02-04 20:45] VITALS: PULSE 87; O2SAT 98
[2021-02-04 20:52] VITALS: BP 189/94; PULSE 87; RESP 16; TEMP 37.2; O2SAT 98
[2021-02-04] MEDS: QUEtiapine 25 MG Tablet PO (22:10)
[2021-02-04 22:20] LABS: Bedside Glucose 158 mg/dL (70-110)
[2021-02-04] MEDS: Nortriptyline 25 MG Capsule 150 MG PO (22:47)
[2021-02-05 02:07] VITALS: BP 166/83; PULSE 71
--- NOTE | 2021-02-05 02:46 | NURSING ---
Reviewed and agree with TELECOMMUNICATIONS LINESWORKER documentation and assessment charting.
[2021-02-05] MEDS: 0.9% Normal Saline 1,000 ML 100 ML IV (04:10)
[2021-02-05] MEDS: Sodium Chloride 1 GM Tablet 3 GM PO ×3 (05:16→21:55)
[2021-02-05] MEDS: 0.9% Saline Lock 10 ML Syringe IV (05:45)
[2021-02-05 06:26] LABS: Anion Gap 8 (5-15); BUN 17 mg/dL (7-18); BUN/Creat Ratio 27.6 RATIO (10-20); Calcium,Total 8.2 mg/dL (8.5-10.1); Chloride 101 mmol/L (98-107); Creatinine, Serum 0.62 mg/dL (0.55-1.02); EST Glomerular Filtration Rate 100 mL/min (>60); Est Glom Filt Rate - Afr Amer 121 mL/min (>60); Estimated Creatinine Clearance 40.21 ml/min; Glucose 133 mg/dL (74-106); Potassium 3.6 mmol/L (3.5-5.1); Sodium Level 134 mmol/L (136-145)
[2021-02-05 06:41] LABS: Bedside Glucose 130 mg/dL (70-110)
[2021-02-05 07:19] VITALS: BP 170/84; PULSE 72; RESP 16; TEMP 36.9; O2SAT 97
[2021-02-05] MEDS: Lidocaine 5% Patch 1 PATCH TOPICAL (08:37)
[2021-02-05] MEDS: Atenolol 25 MG Tablet PO ×2 (08:39→21:39)
[2021-02-05] MEDS: Pantoprazole Sodium 20 MG Tablet PO (08:39)
[2021-02-05] MEDS: Heparin Injection (Vial) 5,000 UNIT/ML VIAL 5000 UNIT SC ×2 (08:39→21:49)
[2021-02-05] MEDS: Senna/Docusate Sodium 1 Tablet 2 TABLET PO ×2 (08:39→21:44)
[2021-02-05] MEDS: Lisinopril 20 MG Tablet PO ×2 (08:39→21:42)
[2021-02-05] MEDS: Folic Acid 1 MG Tablet 0.5 MG PO (08:39)
[2021-02-05] MEDS: Anastrozole 1 MG TABLET PO (08:39)
[2021-02-05] MEDS: Vitamin E 400 UNITS Capsule 800 UNITS PO (08:39)
[2021-02-05] MEDS: Aspirin E.C. 81 MG Tablet PO (08:39)
[2021-02-05] MEDS: Ascorbic Acid 500 MG Tablet PO (08:40)
[2021-02-05] MEDS: Polyethylene Glycol 3350 17 GM PACKET PO (08:51)
[2021-02-05 11:45] LABS: Bedside Glucose 117 mg/dL (70-110)
--- NOTE | 2021-02-05 14:57 | CASEMGMT ---
Social Work Completed BIMS with pt - 05/12. Pt unable to answer assessment questions. Left message with son. Tammie Devin, INSURANCE ADVISER SPECIALTY SALES CONSULTANT
[2021-02-05 18:40] LABS: Bedside Glucose 117 mg/dL (70-110)
[2021-02-05 19:32] VITALS: BP 166/85; PULSE 79; RESP 16; TEMP 36.4; O2SAT 98
[2021-02-05 21:00] VITALS: PULSE 79; RESP 16; O2SAT 98
[2021-02-05] MEDS: Nortriptyline 25 MG Capsule 150 MG PO (21:35)
[2021-02-05] MEDS: QUEtiapine 25 MG Tablet PO (21:39)
[2021-02-05 23:01] LABS: Bedside Glucose 165 mg/dL (70-110)
--- NOTE | 2021-02-06 02:03 | NURSING ---
Reviewed and agree with PROVIDER RELATIONS SPECIALIST documentation and assessment charting.
[2021-02-06] MEDS: Sodium Chloride 1 GM Tablet 3 GM PO ×3 (05:37→19:49)
[2021-02-06 06:46] LABS: Bedside Glucose 136 mg/dL (70-110)
[2021-02-06] MEDS: Heparin Injection (Vial) 5,000 UNIT/ML VIAL 5000 UNIT SC ×2 (07:45→19:50)
[2021-02-06] MEDS: Lidocaine 5% Patch 1 PATCH TOPICAL (07:45)
[2021-02-06] MEDS: Polyethylene Glycol 3350 17 GM PACKET PO (07:46)
[2021-02-06] MEDS: Folic Acid 1 MG Tablet 0.5 MG PO (07:46)
[2021-02-06] MEDS: Aspirin E.C. 81 MG Tablet PO (07:46)
[2021-02-06] MEDS: Senna/Docusate Sodium 1 Tablet 2 TABLET PO ×2 (07:46→19:49)
[2021-02-06] MEDS: Anastrozole 1 MG TABLET PO (07:46)
[2021-02-06] MEDS: Vitamin E 400 UNITS Capsule 800 UNITS PO (07:46)
[2021-02-06] MEDS: Lisinopril 20 MG Tablet PO ×2 (07:47→19:48)
[2021-02-06] MEDS: Atenolol 25 MG Tablet PO ×2 (07:47→19:48)
[2021-02-06] MEDS: Pantoprazole Sodium 20 MG Tablet PO (07:47)
[2021-02-06] MEDS: Ascorbic Acid 500 MG Tablet PO (07:47)
[2021-02-06 08:47] VITALS: BP 124/85; PULSE 69; RESP 18; TEMP 36.4; O2SAT 98
[2021-02-06 12:11] LABS: Bedside Glucose 121 mg/dL (70-110)
--- NOTE | 2021-02-06 15:30 | CASEMGMT ---
Addendum entered by Amaris Singletary 02/06/21 16:29: Please note, residential lists are in pt's preferred geographic area and have quality and resource use data included. PIPER Santana Original Note: Social Work SW spoke w/son as pt is not able to participate in assessment due to cognition at this time. SW explained to son the next review date with insurance will be 02/07. It is anticipated pt will be approved for more time, SW explained that when [employer] does stop covering for inpt rehab, we can look into pt going to a fpc facility from here. Son does think pt will need this. SW explained will bring a list to pt's room with facilities that take [employer], son states that his aunt will likely be in the room and to give the list to her. SW did go to the room, however pt's sister is not there, SW left the residential lists on the windowsill. SW spoke w/pt briefly, she is pleasant, answered SW questions. Son had informed SW he is POA, on the POA forms on file, [facility] is listed first and [facility] is listed second. SW let son know, he states the papers have been updated, SW asked him to bring them in. SW also let son know that the residential lists are in the room on the window sill. Son states understanding. SW will continue to follow for appropriate discharge plans and support to family. PIPER Santana
[2021-02-06 17:16] LABS: Bedside Glucose 104 mg/dL (70-110)
[2021-02-06 19:06] VITALS: BP 148/67; PULSE 83; RESP 16; TEMP 35.8; O2SAT 93
[2021-02-06 19:30] VITALS: PULSE 83; RESP 16
[2021-02-06] MEDS: Nortriptyline 25 MG Capsule 150 MG PO (19:49)
[2021-02-06] MEDS: QUEtiapine 25 MG Tablet PO (19:49)
[2021-02-06] MEDS: 0.9% Saline Lock 10 ML Syringe IV (19:57)
[2021-02-06 20:16] LABS: Bedside Glucose 183 mg/dL (70-110)
--- NOTE | 2021-02-06 22:21 | NURSING ---
Reviewed and agree with [employer] documentation.
[2021-02-07] MEDS: Sodium Chloride 1 GM Tablet 3 GM PO ×3 (05:12→20:01)
[2021-02-07 07:30] VITALS: BP 163/79; PULSE 64; RESP 16; TEMP 36.3; O2SAT 97
[2021-02-07] MEDS: Folic Acid 1 MG Tablet 0.5 MG PO (07:43)
[2021-02-07] MEDS: Senna/Docusate Sodium 1 Tablet 2 TABLET PO ×2 (07:45→20:01)
[2021-02-07] MEDS: Lisinopril 20 MG Tablet PO (07:45)
[2021-02-07] MEDS: Aspirin E.C. 81 MG Tablet PO (07:45)
[2021-02-07] MEDS: Atenolol 25 MG Tablet PO (07:45)
[2021-02-07] MEDS: Anastrozole 1 MG TABLET PO (07:45)
[2021-02-07] MEDS: Vitamin E 400 UNITS Capsule 800 UNITS PO (07:45)
[2021-02-07] MEDS: Polyethylene Glycol 3350 17 GM PACKET PO (07:46)
[2021-02-07] MEDS: Lidocaine 5% Patch 1 PATCH TOPICAL (07:46)
[2021-02-07] MEDS: Pantoprazole Sodium 20 MG Tablet PO (07:46)
[2021-02-07] MEDS: Ascorbic Acid 500 MG Tablet PO (07:54)
[2021-02-07] MEDS: Heparin Injection (Vial) 5,000 UNIT/ML VIAL 5000 UNIT SC ×2 (10:40→20:02)
--- NOTE | 2021-02-07 11:19 | PCM.PN.BLA ---
Progress Note Afebrile VSS-the blood pressure is erratic but mostly above goal. Blood pressure this a.m. is 163/79. Maintaining appropriate oxygen saturation on RA Oral intake is poor and generate less than 1 L daily. We have had to give intravenous fluids to prevent significant dehydration. She has been losing weight. I talked to her during lunch and she barely ate anything on the tray. She drank a little of the Ensure. Discussed with nursing - no problems that need addressed. Reviewed the PT/OT/ST notes Medication list reviewed. She denies chest pain, shortness of breath, nausea, vomiting, abdominal pain, dysuria. She tells me she has a little cough but I have never heard her cough. Physical Exam Const alert Constitutional Narrative: She could tell me her name today and that she is in [place] but, she also thinks she is at home. She can not recall the name of the sister she lives with. She can not tell me her age. She instead tells me that she is old enough. She can still not recall why she is in rehab. General Appearance: cooperative Eyes conjunctivae normal and no scleral icterus Chest Chest: symmetrical chest wall rise Resp normal respiratory effort and clear to auscultation bilaterally Resp Narrative: She initially had a few coarse crackles in the bases but, after a few deep breaths she is CTA. She is not tachypneic at rest and has no accessory muscle use. Respirations are easy and nonlabored. Effort and Inspection: able to speak in complete sentences Cardio regular rate, regular rhythm and no gallops GI normal to inspection, nondistended, normoactive bowel sounds, soft to palpation and non-tender Extremity no calf tenderness Extremity Narrative: She has mild pitting edema of the ankles bilaterally but her legs have been dependent every time I see her. Skin General Skin Exam: no breakdown Rashes: no rashes Psych Psych Narrative: Not making good eye contact and she is confabulating. Assessment & Plan Assessment/Plan (1) Physical debility: (2) S/P coil embolization of cerebral aneurysm: (3) Infiltrating ductal carcinoma of left breast: (4) Obstructive hydrocephalus: (5) Encephalopathy acute: (6) Hyponatremia: (7) IVH (intraventricular hemorrhage): (8) SAH (subarachnoid hemorrhage): (9) Anxiety and depression: PLAN: 1. She is not eating and I do not believe she remembers to drink fluids. She is having a hard time initiating any activity but, she is able to follow commands. I am wondering if there were memory deficits prior to the recent SAH/IVH? Will try and get in touch with family. 2. Increase the Atenolol to 75 mg daily. Go back to 20 mg daily of the Lisinopril since increasing the dose to 40 mg has made no significant change in the BP. Monitor the HR closely with the increase in the beta saadia. 3. DC the Xanax - she has not had any since 02/04 and this can increase confusion. She does not appear anxious at this time. 4. Decrease the Pamelor to 100 mg nightly and wean down every 5-7 days. Start Sertraline 25 mg daily which will be effective for anxiety and depression. The TCA may be contributing to the drowsiness and lack of motivation. 5. Recheck the Lab on Friday. 6. Have the nurses give her fluids throughout the day. I truly think she needs supervision with eating and maybe needs to be fed because I do not think she is remembering what to do when the tray is put in front of her. 7. Continue therapy. Visit Charges Inpatient E&M: 06866 Subs Hosp L2
[2021-02-07 19:47] VITALS: BP 162/64; PULSE 75; RESP 16; TEMP 35.8; O2SAT 96
[2021-02-07] MEDS: QUEtiapine 25 MG Tablet PO (20:01)
[2021-02-07] MEDS: Nortriptyline 25 MG Capsule 100 MG PO (20:02)
[2021-02-07] MEDS: 0.9% Saline Lock 10 ML Syringe IV (20:18)
[2021-02-08] MEDS: Sodium Chloride 1 GM Tablet 3 GM PO ×2 (06:49→20:59)
[2021-02-08 08:31] VITALS: BP 158/78; PULSE 70; RESP 16; TEMP 36.7; O2SAT 98
[2021-02-08] MEDS: Lisinopril 20 MG Tablet PO (08:33)
[2021-02-08] MEDS: Polyethylene Glycol 3350 17 GM PACKET PO (08:33)
[2021-02-08] MEDS: Pantoprazole Sodium 20 MG Tablet PO (08:33)
[2021-02-08] MEDS: Ascorbic Acid 500 MG Tablet PO (08:33)
[2021-02-08] MEDS: Aspirin E.C. 81 MG Tablet PO (08:33)
[2021-02-08] MEDS: Sertraline 50 MG Tablet 25 MG PO (08:34)
[2021-02-08] MEDS: Atenolol 25 MG Tablet 75 MG PO (08:34)
[2021-02-08] MEDS: Senna/Docusate Sodium 1 Tablet 2 TABLET PO ×2 (08:34→21:00)
[2021-02-08] MEDS: Folic Acid 1 MG Tablet 0.5 MG PO (08:36)
[2021-02-08] MEDS: Anastrozole 1 MG TABLET PO (08:37)
[2021-02-08] MEDS: Vitamin E 400 UNITS Capsule 800 UNITS PO (08:37)
[2021-02-08] MEDS: Heparin Injection (Vial) 5,000 UNIT/ML VIAL 5000 UNIT SC ×2 (08:45→21:00)
[2021-02-08] MEDS: Lidocaine 5% Patch 1 PATCH TOPICAL (08:47)
[2021-02-08] MEDS: Acetaminophen 325 MG Tablet 650 MG PO (09:57)
--- NOTE | 2021-02-08 10:22 | PCM.PN.BLA ---
Progress Note Afebrile VSS-blood pressure today is 158/78 and the heart rate is 70. She received the first dose of Atenolol 75 mg this AM and will continue to monitor the BP and HR. Maintaining appropriate oxygen saturation on RA Oral intake is poor. Total intake yesterday was 630 cc and today she has only had 100 cc. Discussed with nursing -nursing reports that she is constipated and she is going to get a Dulcolax suppository today. Reviewed the PT/OT/ST notes Medication list reviewed. PT reports that she is c/o a LUA today and she has photo and phono phobic. She tells me that the LUA is resolving and she was working with ST when I entered the room. She also admitted to having had migraines in the past and she usually takes Aspirin. She remains very confused. Told me today she is 89 and she is in [place]. I spoke with her son Tushar on the phone and he tells me that she was living alone until recently and her sister came to help her after the scheduled coil embolization. She managed her own finances, did all her own ADL's and was driving. He tells me that he has never noticed any trouble with her memory. She was prescribed Alprazolam in the past but her last RX was [address] Chang. Her last dose in rehab was 02/04 and it has been discontinued. She denies CP, SOB, N/V. she is constipated and I suspect this is because of the poor oral intake. She is currently taking MiraLAX 17 g daily and senna/docusate sodium 2 tablets twice daily. Physical Exam Const Constitutional Narrative: She seems more alert today and she is making better eye contact with me when I talk to her. She has more facial expression today. She is oriented only to person. She did not want to participate with PT today and she walked only 9 ft and said she was done. HEENT HEENT Narrative: MM are very dry Eyes PERRL, EOMs intact bilaterally, conjunctivae normal and no scleral icterus Neck No nuchal rigidity General: normal visual inspection and trachea midline Resp normal respiratory effort, no use of accessory muscles and clear to auscultation bilaterally Effort and Inspection: able to speak in complete sentences Cardio regular rate, regular rhythm, no murmurs and no gallops GI normal to inspection, nondistended, normoactive bowel sounds, soft to palpation and non-tender Extremity no calf tenderness Extremity Narrative: mild ankle edema Skin Rashes: no rashes Neuro CN's II-XII intact bilaterally, moves all extremities and no focal motor deficits Neuro Narrative: oriented X 1 only Assessment & Plan Assessment/Plan (1) Physical debility: PLAN: Continue therapy (2) Normochromic normocytic anemia: PLAN: recheck a CBC in the AM - anemia may be due to acute blood loss from the SAH and IVH (3) S/P coil embolization of cerebral aneurysm: PLAN: C/B extravasation leading to SHA and IVH (4) Encephalopathy acute: PLAN: I do not think the confusion is all due to the SAH/IVH. She is on a very high dose of Pamelor and I think the acute bleed + the anticholinergic effects of high dose TCA's are what is causing the acute confusion. We are weaning the Pamelor down. Will need to avoid starting another anti-depressant now due to the potential for serotonin syndrome with any additional meds that have serotonin activity....this includes SSRI's, Cymbalta and Effexor and Remeron. She was not taking benzo's as an OP and has not had a RX for Alprazolam since Jan. This rules out abrupt withdrawal of benzo's as a contributing factor in the acute encephalopathy. Will obtain a NC CTB today to make sure she has not had additional bleeding - jaspal with the c/o LUA today which she has not been c/o the past few days. (5) Hyponatremia: PLAN: Suspect this is due to TCA's? can cause SIADH + the poor oral intake. (6) IVH (intraventricular hemorrhage): (7) SAH (subarachnoid hemorrhage): (8) HTN (hypertension): QUALIFIERS: Hypertension type: essential hypertension Qualified Code(s): I10 - Essential (primary) hypertension PLAN: Continue to monitor the BP and HR with the changes made in the antihypertensives that started this morning (9) Anxiety and depression: PLAN: check a Pamelor level today (10) Chronic constipation: PLAN: Likely due to the anticholinergic effects of high dose TCA. Visit Charges Inpatient E&M: 79192 Subs Hosp L3
--- NOTE | 2021-02-08 10:37 | CT_ITS ---
STUDY: CT BRAIN WITHOUT CONTRAST REASON FOR EXAM: Female, 76 years old. Subarachnoid hemorrhage -- recent aneurysm rupture with SAH/IVH.Severe LUA now RADIATION DOSAGE (If Supplied By Facility): CTDIvol = ( 44.99 ) mGy, DLP = ( 796.11 ) mGycm TECHNIQUE: Transaxial CT imaging of the brain was performed without administration of intravenous contrast material. Individualized dose optimization techniques were used for this CT. COMPARISON: Comparison is made with prior examination dated 05/30/2018. FINDINGS: Normal soft tissue structures. The patient is status post left frontal craniotomy. Aneurysmal clip is seen in the left side of the cheesh-na [place] as well as in the left temporal lobe. These cause beam hardening artifacts limiting the evaluation. There is mild cerebral atrophy with widening of the extra-axial spaces and ventricular dilatation. There is evidence of focal encephalomalacia in the left frontal lobe most likely secondary to the prior intracerebral hemorrhage. There are areas of decreased attenuation within the white matter tracts of the supratentorial brain, consistent with microvascular disease changes. Normal basal ganglia and thalami. Normal brainstem. Normal cerebellum. There is no intracranial hemorrhage. There are no findings of an acute ischemic infarction. Normal visualized paranasal sinuses. CT/Brain/Head without Contrast IMPRESSION: Chronic involutional changes of the brain. No acute abnormality is seen. Status post aneurysmal clips in the left temporal lobe and the left side of the cheesh-na of [place]. Electronically Signed: Khanh Huston MD at 11:55 EDT , Service support ,
[2021-02-08] MEDS: Bisacodyl 10 MG Suppository RC (11:05)
[2021-02-08 13:00] VITALS: BP 114/72; BP 141/72; BP 146/75; PULSE 68; PULSE 70
--- NOTE | 2021-02-08 14:15 | CASEMGMT ---
Social Work Team meeting held with pt and her sister Shazia present. Pt is receiving PT/OT/ST and making progress. ADRYAN explained that insurance update was submitted 02/07 and continue stay determination is pending. ADRYAN informed pt and sister that continued stay is not guaranteed. If pt is discharged prior to her ability to return home, she will likely need short term SNF for continued rehab. Shazia made aware of this and conversation regarding SNF was had with son earlier in the week. Pt son does have SNF list. Shazia does live with pt and is hopeful pt will be able to return home. Pt is benefiting from 3 hours of therapy at this time. Treatment plan to continue and will reteam next week. THEA Kaye
[2021-02-08] MEDS: Alteplase 2 MG/2 ML Vial IV (16:08)
--- NOTE | 2021-02-08 17:00 | NURSING ---
Patient given cathflo through midline right arm due to no blood return but midline flushes with ease. no blood return after cathflo given. Dr. Albarran made aware.
[2021-02-08] MEDS: 0.9% Normal Saline 1,000 ML 75 ML IV (18:11)
[2021-02-08 19:10] VITALS: BP 159/93; PULSE 71; RESP 18; TEMP 36.6; O2SAT 93
[2021-02-08] MEDS: Nortriptyline 25 MG Capsule 75 MG PO (21:00)
[2021-02-08] MEDS: QUEtiapine 25 MG Tablet PO (21:00)
[2021-02-08 22:40] VITALS: BP 150/81; PULSE 74
[2021-02-09] MEDS: Sodium Chloride 1 GM Tablet 3 GM PO ×2 (05:25→20:35)
[2021-02-09 07:09] VITALS: BP 174/89; PULSE 65; RESP 12; TEMP 36.5; O2SAT 98
[2021-02-09] MEDS: Acetaminophen 325 MG Tablet 650 MG PO ×2 (07:27→20:39)
[2021-02-09] MEDS: Folic Acid 1 MG Tablet 0.5 MG PO (07:27)
[2021-02-09] MEDS: Anastrozole 1 MG TABLET PO (07:27)
[2021-02-09] MEDS: Aspirin E.C. 81 MG Tablet PO (07:28)
[2021-02-09] MEDS: Atenolol 25 MG Tablet 75 MG PO (07:28)
[2021-02-09] MEDS: Heparin Injection (Vial) 5,000 UNIT/ML VIAL 5000 UNIT SC ×2 (07:30→20:35)
[2021-02-09] MEDS: Lidocaine 5% Patch 1 PATCH TOPICAL (07:35)
[2021-02-09] MEDS: 0.9% Normal Saline 1,000 ML 75 ML IV ×2 (07:37→20:54)
[2021-02-09 08:37] LABS: Hematocrit 32.8 % (37-47); Mean Corp Hgb Conc 33.5 g/dL (32-36); Mean Corpuscular Hgb 30.9 pg (27.0-32.0); Mean Corpuscular Volume 92.1 fL (81-99); Mean Platelet Vol. 8.2 fl (6.2-12.0); Platelet Count 435 K/mm3 (150-450); RBC Distribution Width CV 13.2 % (11.6-14.6); Red Blood Count 3.56 M/mm3 (4.2-5.4); White Blood Count 7.5 K/mm3 (4.4-11.0)
[2021-02-09 09:15] LABS: Anion Gap 4 (5-15); BUN 12 mg/dL (7-18); BUN/Creat Ratio 20.1 RATIO (10-20); Calcium,Total 8.3 mg/dL (8.5-10.1); Chloride 105 mmol/L (98-107); EST Glomerular Filtration Rate 104 mL/min (>60); Est Glom Filt Rate - Afr Amer 126 mL/min (>60); Estimated Creatinine Clearance 40.21 ml/min; Glucose 169 mg/dL (74-106); Potassium 3.5 mmol/L (3.5-5.1); Sodium Level 134 mmol/L (136-145)
--- NOTE | 2021-02-09 09:39 | PN_ITS ---
Progress Note Afebrile VSS-systolic blood pressure is always higher in the morning. No bradycardia yesterday with the increase in atenolol to 75 mg daily. Blood pressure this morning is 174/89. Orthostatics were positive yesterday. Maintaining appropriate oxygen saturation on RA Oral intake is improving. She was able to take 1060 [address] She was [address] arted on intravenous fluids for orthostatic hypotension. Discussed with nursing - no problems that need addressed Reviewed the PT/OT/ST notes Medication list reviewed. The naval designer has diagnosed Judi with severe protein/calorie malnutrition. The nutritional supplements have been increased. Most meals she eats less than 50% and often less than that. All lab was personally reviewed. White blood cell count is now normal at 7.5. Hemoglobin is stable at 11 and the platelets are within normal limits. Sodium is still mildly decreased at 134 but is stable. Potassium is 3.5. FBS is 169 today. The BUN is down to 12 and the creatinine is stable now at 0.6. The BUN/creatinine ratio is elevated at 20.1. Calcium corrected for hypoalbuminemia is within normal limits. Nortriptyline level is pending. Physical Exam Narrative She is alert and answering my questions. She know that she is in [place] and thinks she is in the hospital. She can tell me her name, but she does not know her age or the year. She did tell me it is January. Const alert, no apparent distress, average body habitus and well nourished Constitutional Narrative: orientation waxes and wanes General Appearance: cooperative, well kempt and well developed Chest Chest: symmetrical chest wall rise Resp normal respiratory effort, no use of accessory muscles and clear to auscultation bilaterally Resp Narrative: She initially had a few coarse crackles in the bases but, after a few deep breaths she is CTA. She is not tachypneic at rest and has no accessory muscle use. Respirations are easy and nonlabored. She is not able to retain how to use the IS. Effort and Inspection: able to speak in complete sentences; Negative for tachypneic, respiratory distress, labored or uses accessory muscles Auscultation: Negative for rales, rhonchi or wheezes Cardio regular rate, regular rhythm, no murmurs and no gallops GI normal to inspection, nondistended, normoactive bowel sounds, soft to palpation, non-tender and non-distended GI Narrative: No guarding with palpation Extremity no clubbing, cyanosis or edema and no calf tenderness Extremity Narrative: mild ankle edema controlled by the RADHA hose. She is sitting in the recliner with her legs dependent and tells the nurses she has pain in her legs when the feet are elevated while sitting in the chair Skin General Skin Exam: no breakdown Rashes: no rashes Neuro CN's II-XII intact bilaterally, moves all extremities and no focal motor deficits Neuro Narrative: She can not initiate activities. She is able to respond to directions when given. Motor Exam: general weakness Psych cooperative Assessment & Plan Assessment/Plan (1) Physical debility: (2) S/P coil embolization of cerebral aneurysm: (3) Encephalopathy acute: (4) IVH (intraventricular hemorrhage): (5) SAH (subarachnoid hemorrhage): (6) HTN (hypertension): QUALIFIERS: Hypertension type: essential hypertension Qualified Code(s): I10 - Essential (primary) hypertension (7) Anxiety and depression: (8) Adverse reaction to drug: PLAN: 1. I suspect the High dose Pamelor is contributing to encephalopathy in this pt with recent SAH and IVH. She is doing better since the dose has been weaned but, she is still confused. She is much more alert. Will decrease the dose to 75 mg Q HS and then wean by 25 mg weekly to avoid acute withdrawal sx. 2. Continue therapy 3. Nortriptyline level drawn today Visit Charges Inpatient E&M: 55371 Subs Hosp L2
[2021-02-09] MEDS: Pantoprazole Sodium 20 MG Tablet PO (10:30)
[2021-02-09] MEDS: Potassium Chloride Oral Tablet 20 MEQ PO (10:30)
[2021-02-09] MEDS: Lisinopril 20 MG Tablet PO (10:32)
[2021-02-09] MEDS: Polyethylene Glycol 3350 17 GM PACKET PO (10:59)
[2021-02-09 11:00] VITALS: BP 122/72; BP 143/68; BP 160/70; PULSE 63; PULSE 69
[2021-02-09] MEDS: Senna/Docusate Sodium 1 Tablet 2 TABLET PO ×2 (12:59→20:12)
[2021-02-09 19:17] VITALS: BP 172/91; PULSE 66; RESP 16; TEMP 36.8; O2SAT 96
[2021-02-09] MEDS: Nortriptyline 25 MG Capsule 75 MG PO (20:13)
[2021-02-09 20:26] VITALS: PULSE 66; RESP 16; O2SAT 96
[2021-02-09] MEDS: QUEtiapine 25 MG Tablet PO (20:35)
[2021-02-10] MEDS: Sodium Chloride 1 GM Tablet 3 GM PO ×3 (05:42→19:57)
[2021-02-10] MEDS: Polyethylene Glycol 3350 17 GM PACKET PO (07:50)
[2021-02-10] MEDS: Acetaminophen 325 MG Tablet 650 MG PO (07:51)
[2021-02-10] MEDS: Folic Acid 1 MG Tablet 0.5 MG PO (07:51)
[2021-02-10] MEDS: Senna/Docusate Sodium 1 Tablet 2 TABLET PO ×2 (07:53→19:56)
[2021-02-10] MEDS: Anastrozole 1 MG TABLET PO (07:53)
[2021-02-10] MEDS: Atenolol 25 MG Tablet 75 MG PO (07:53)
[2021-02-10] MEDS: Pantoprazole Sodium 20 MG Tablet PO (07:53)
[2021-02-10] MEDS: Potassium Chloride Oral Tablet 20 MEQ PO (07:54)
[2021-02-10] MEDS: Lisinopril 20 MG Tablet PO (08:01)
[2021-02-10] MEDS: Aspirin E.C. 81 MG Tablet PO (08:01)
[2021-02-10] MEDS: Lidocaine 5% Patch 1 PATCH TOPICAL (09:25)
[2021-02-10] MEDS: Heparin Injection (Vial) 5,000 UNIT/ML VIAL 5000 UNIT SC ×2 (09:25→19:55)
[2021-02-10] MEDS: 0.9% Normal Saline 1,000 ML 75 ML IV ×2 (09:27→22:47)
[2021-02-10 09:30] VITALS: BP 176/72; PULSE 66; RESP 16; TEMP 36.5; O2SAT 97
[2021-02-10 19:30] VITALS: BP 143/84; PULSE 71; RESP 16; TEMP 36.6; O2SAT 100
[2021-02-10] MEDS: Nortriptyline 25 MG Capsule 75 MG PO (19:55)
[2021-02-10] MEDS: QUEtiapine 25 MG Tablet PO (19:56)
[2021-02-11] MEDS: Sodium Chloride 1 GM Tablet 3 GM PO ×3 (05:55→21:53)
[2021-02-11 07:07] VITALS: BP 163/85; PULSE 70; RESP 18; TEMP 36.9; O2SAT 96
[2021-02-11] MEDS: Lidocaine 5% Patch 1 PATCH TOPICAL (09:45)
[2021-02-11] MEDS: Polyethylene Glycol 3350 17 GM PACKET PO (09:45)
[2021-02-11] MEDS: Potassium Chloride Oral Tablet 20 MEQ PO (09:46)
[2021-02-11] MEDS: Heparin Injection (Vial) 5,000 UNIT/ML VIAL 5000 UNIT SC ×2 (09:46→21:52)
[2021-02-11] MEDS: Atenolol 25 MG Tablet 75 MG PO (09:46)
[2021-02-11] MEDS: Pantoprazole Sodium 20 MG Tablet PO (09:48)
[2021-02-11] MEDS: Folic Acid 1 MG Tablet 0.5 MG PO (09:48)
[2021-02-11] MEDS: Lisinopril 20 MG Tablet PO (09:48)
[2021-02-11] MEDS: Aspirin E.C. 81 MG Tablet PO (09:48)
[2021-02-11] MEDS: Anastrozole 1 MG TABLET PO (09:49)
[2021-02-11] MEDS: Acetaminophen 325 MG Tablet 650 MG PO (10:42)
[2021-02-11 11:00] VITALS: BP 148/72; BP 164/70; BP 168/72; PULSE 76; PULSE 80; PULSE 82
[2021-02-11] MEDS: 0.9% Normal Saline 1,000 ML 75 ML IV (11:16)
[2021-02-11 19:15] VITALS: BP 168/72; PULSE 73; RESP 14; TEMP 36.6; O2SAT 94
[2021-02-11] MEDS: Nortriptyline 25 MG Capsule 75 MG PO (21:52)
[2021-02-11] MEDS: QUEtiapine 25 MG Tablet PO (21:53)
[2021-02-12] MEDS: 0.9% Normal Saline 1,000 ML 75 ML IV (00:32)
[2021-02-12] MEDS: Sodium Chloride 1 GM Tablet 3 GM PO ×3 (05:25→20:44)
[2021-02-12 07:30] VITALS: BP 154/87; PULSE 71; RESP 18; TEMP 37; O2SAT 99
[2021-02-12] MEDS: Heparin Injection (Vial) 5,000 UNIT/ML VIAL 5000 UNIT SC ×2 (07:51→20:37)
[2021-02-12] MEDS: Lidocaine 5% Patch 1 PATCH TOPICAL (07:51)
[2021-02-12] MEDS: Acetaminophen 325 MG Tablet 650 MG PO ×2 (07:57→20:45)
[2021-02-12] MEDS: Potassium Chloride Oral Tablet 20 MEQ PO (07:58)
[2021-02-12] MEDS: Lisinopril 20 MG Tablet PO (07:58)
[2021-02-12] MEDS: Pantoprazole Sodium 20 MG Tablet PO (07:58)
[2021-02-12] MEDS: Anastrozole 1 MG TABLET PO (08:01)
[2021-02-12] MEDS: Aspirin E.C. 81 MG Tablet PO (08:02)
[2021-02-12] MEDS: Atenolol 25 MG Tablet 75 MG PO (08:02)
[2021-02-12 09:29] VITALS: BP 154/74; BP 155/85; BP 168/80; PULSE 72; PULSE 80
--- NOTE | 2021-02-12 10:50 | PCM.PN.BLA ---
Progress Note Afebrile VSS-the systolic blood pressure remains frequently greater than 135 despite adjustments in the antihypertensives. Heart rate is within normal limits. Maintaining appropriate oxygen saturation on RA Oral intake is variable. She does better when her sister comes to feed her at mealtime. Judi does not initiate eating on her own. I spoke with her sister on Friday and she told me Judi's intake is improving and she is now taking about 50% of her diet. Oral intake since Friday has ranged from 900-16 70. Discussed with nursing - no problems that need addressed Reviewed the PT/OT/ST notes -still requiring maximum assistance with grooming and bathing. She needs moderate assist with upper body dressing and total assist with lower body dressing. She did not want to cooperate with therapy on Friday and ambulated only 3 feet with the [facility] at [facility]. Medication list reviewed. The nortriptyline level is still pending. It is a send out test. Physical Exam Narrative Drowsy due to Haldol. Const no apparent distress, average body habitus and well nourished Constitutional Narrative: General Appearance: well kempt and well developed HEENT normocephalic Eyes PERRL, EOMs intact bilaterally, conjunctivae normal and no scleral icterus Neck No nuchal rigidity, supple and no carotid bruits General: normal visual inspection and trachea midline Resp normal respiratory effort, normal air movement, no use of accessory muscles and clear to auscultation bilaterally Resp Narrative: Effort and Inspection: able to speak in complete sentences; Negative for tachypneic, respiratory distress, labored or uses accessory muscles Auscultation: Negative for rales, rhonchi or wheezes Cardio regular rate, regular rhythm, no murmurs and no gallops GI normal to inspection, nondistended, normoactive bowel sounds, soft to palpation, non-tender and non-distended GI Narrative: No guarding with palpation Extremity no clubbing, cyanosis or edema and no calf tenderness Extremity Narrative: Skin General Skin Exam: no breakdown Rashes: no rashes Neuro CN's II-XII intact bilaterally, moves all extremities and no focal motor deficits Motor Exam: general weakness Psych cooperative Psych Narrative: She is making better eye contact when she is talking however, behavior is erratic. Sometimes agitated. spitting her pills out at times Assessment & Plan Assessment/Plan (1) Physical debility: (2) S/P coil embolization of cerebral aneurysm: (3) Encephalopathy acute: (4) IVH (intraventricular hemorrhage): (5) SAH (subarachnoid hemorrhage): (6) HTN (hypertension): QUALIFIERS: Hypertension type: essential hypertension Qualified Code(s): I10 - Essential (primary) hypertension (7) Anxiety and depression: PLAN: 1. Continue therapy 2. Shazia will come in and feed her meals to hopefully improve oral intake. 3. Taper the Pamelor slowly 4. The behavior and the lack of initiation of activity is a problem. Could she have pseudobulbar affect? Will continue to observe. Visit Charges Inpatient E&M: 75547 Subs Hosp L2
[2021-02-12] MEDS: Folic Acid 1 MG Tablet 0.5 MG PO (11:06)
--- NOTE | 2021-02-12 13:23 | CASEMGMT ---
Social Work Met with patient and sister and conference called son. Discussed insurance and DC plans. Explained insurance initially approved [facility] 18 days, NRD 02/15 and continued stay is not guaranteed. Family prefers TCU at OR. Explained [employer] typically does not cover SNF stay after IRU stay, but still could submit for precert, if they chose. Explained SW can assist with seeing it pt would qualify for Medicaid, but TCU is not in network with [facility]. Family does not want pt at another SNF, if possible. Sister knows pt's finances - pt isn't over income, but does have about $8,000 in savings, no life insurance policy. Explained pt would need to pay privately 30 days at a SNF before qualifying for [facility]. Family does not want pt to spend down - they would take her home. Explained skilled C coverage - would order PT/OT/ST/SN/LUA/SW. Sister could stay with pt but also similar age and is petite, thus it would not be safe for her to assist more than minimal assistance. Son works flight crew time clerk as an Orthopedic Dr. at [employer] and two daughters live out of state. There is no other assistance. Pt has a new cath, currently on IV fluids because pt is not eating/drinking well. Family would like pt to be stable, hydrated and urinating on own before DC to prevent risk of readmission. IDT agreeable. IDT recommending continued stay in IRU until pt is safe to return home closer to PLOF with sister's assistance. Pt has all DME at home from prior knee surgery. SW to continue to follow for discharge planning. Family appreciative of SW assistance. Tammie Beltran, [facility]
[2021-02-12 19:29] VITALS: BP 157/80; PULSE 58; RESP 16; TEMP 36.7; O2SAT 96
[2021-02-12] MEDS: 0.9% Saline Lock 10 ML Syringe IV (20:29)
[2021-02-12] MEDS: QUEtiapine 25 MG Tablet PO (20:44)
[2021-02-12] MEDS: Nortriptyline 25 MG Capsule 75 MG PO (21:00)
[2021-02-13] MEDS: Sodium Chloride 1 GM Tablet 3 GM PO ×3 (05:06→21:15)
[2021-02-13 07:03] VITALS: BP 160/86; PULSE 63; RESP 16; TEMP 36.4; O2SAT 95
[2021-02-13] MEDS: Aspirin E.C. 81 MG Tablet PO (07:36)
[2021-02-13] MEDS: Potassium Chloride Oral Tablet 20 MEQ PO (07:36)
[2021-02-13] MEDS: Lisinopril 20 MG Tablet PO (07:36)
[2021-02-13] MEDS: Atenolol 25 MG Tablet 75 MG PO (07:36)
[2021-02-13] MEDS: Folic Acid 1 MG Tablet 0.5 MG PO (07:36)
[2021-02-13] MEDS: Anastrozole 1 MG TABLET PO (07:37)
[2021-02-13] MEDS: Heparin Injection (Vial) 5,000 UNIT/ML VIAL 5000 UNIT SC ×2 (07:37→21:14)
[2021-02-13] MEDS: Vitamin E 400 UNITS Capsule 800 UNITS PO (07:37)
[2021-02-13] MEDS: Ascorbic Acid 500 MG Tablet PO (07:37)
[2021-02-13] MEDS: Pantoprazole Sodium 20 MG Tablet PO (07:37)
[2021-02-13] MEDS: Polyethylene Glycol 3350 17 GM PACKET PO (07:49)
[2021-02-13] MEDS: Senna/Docusate Sodium 1 Tablet 2 TABLET PO ×2 (07:49→21:15)
[2021-02-13 08:06] LABS: Nortriptyline Level 145 ng/mL (50-150)
[2021-02-13 10:32] LABS: Anion Gap 11 (5-15); BUN 12 mg/dL (7-18); BUN/Creat Ratio 16.2 RATIO (10-20); Calcium,Total 9.1 mg/dL (8.5-10.1); Chloride 105 mmol/L (98-107); Creatinine, Serum 0.74 mg/dL (0.55-1.02); EST Glomerular Filtration Rate 81 mL/min (>60); Est Glom Filt Rate - Afr Amer 98 mL/min (>60); Estimated Creatinine Clearance 40.21 ml/min; Glucose 190 mg/dL (74-106); Sodium Level 137 mmol/L (136-145)
[2021-02-13 11:00] VITALS: BP 117/90; BP 131/76; BP 132/69; PULSE 62; PULSE 65; PULSE 76
[2021-02-13] MEDS: COVID-19 VACC, MRNA(PFIZER)/PF 30 MCG/0.3 ML SYRINGE IM (17:24)
--- NOTE | 2021-02-13 18:15 | NURSING ---
Covid 19 vaccine (Pfizer) in Rt Deltoid. pt tolerated well.
[2021-02-13 18:55] VITALS: BP 146/81; PULSE 64; RESP 16; TEMP 36.3; O2SAT 100
[2021-02-13] MEDS: QUEtiapine 25 MG Tablet PO (21:15)
[2021-02-13] MEDS: Nortriptyline 25 MG Capsule 75 MG PO (21:15)
[2021-02-13] MEDS: Acetaminophen 325 MG Tablet 650 MG PO (21:21)
[2021-02-13] MEDS: 0.9% Saline Lock 10 ML Syringe IV (21:30)
--- NOTE | 2021-02-13 21:49 | NURSING ---
pt restless this hs and has set off alarms a few times stating she has to get up and see What those people are doing. Pt may have overheard the alarm system alerting [facility]. Pt reoriented and reassured. Will continue to monitor.
[2021-02-13 22:00] VITALS: PULSE 64; RESP 16; O2SAT 100
[2021-02-14] MEDS: Sodium Chloride 1 GM Tablet 3 GM PO ×2 (06:35→20:30)
[2021-02-14] MEDS: Polyethylene Glycol 3350 17 GM PACKET PO (07:28)
[2021-02-14] MEDS: Lidocaine 5% Patch 1 PATCH TOPICAL (07:28)
[2021-02-14] MEDS: Potassium Chloride Oral Tablet 20 MEQ PO (07:28)
[2021-02-14] MEDS: Ascorbic Acid 500 MG Tablet PO (07:29)
[2021-02-14] MEDS: Pantoprazole Sodium 20 MG Tablet PO (07:29)
[2021-02-14] MEDS: Aspirin E.C. 81 MG Tablet PO (07:29)
[2021-02-14] MEDS: Senna/Docusate Sodium 1 Tablet 2 TABLET PO ×2 (07:29→20:39)
[2021-02-14] MEDS: Folic Acid 1 MG Tablet 0.5 MG PO (07:29)
[2021-02-14] MEDS: Atenolol 25 MG Tablet 75 MG PO (07:29)
[2021-02-14] MEDS: Anastrozole 1 MG TABLET PO (07:30)
[2021-02-14] MEDS: Lisinopril 20 MG Tablet PO (07:30)
[2021-02-14] MEDS: Heparin Injection (Vial) 5,000 UNIT/ML VIAL 5000 UNIT SC ×2 (07:40→20:39)
[2021-02-14 08:14] VITALS: BP 126/72; PULSE 71; RESP 16; TEMP 36; O2SAT 96
--- NOTE | 2021-02-14 09:00 | PCM.PN.BLA ---
Progress Note Afebrile VSS - she was still mildly orthostatic yesterday but she is asymptomatic. Maintaining appropriate oxygen saturation on RA Oral intake is still poor. Yesterday she took only 540 cc p.o. and put out 1500. Today she has had 340 cc so far. She continues to lose weight.....her sister has been feeding her and she eats about 50% of her meals. She has lost about 9 lbs since admission to the rehab unit Discussed with nursing - She has been spitting out some of her medications. Reviewed the PT/OT/ST notes - has been making progress with ambulating. Can do some tasks but, needs directions and voice cues to initiate the activities. Still disoriented and confused. Medication list reviewed. All lab was personally reviewed. Sodium is WNL now. The potassium is 4.0. The BUN was 12 with a creatinine of 0.74. RBS was 190. HGBA1C was 6.4 this admission. Accuchecks earlier in the admission were all less than 200. The nortriptyline level is 145 and that was after we started decreasing the dose. Normal ranges 50-1 50. Judi has been very emotional the past couple days. She is crying. She is c/o pain in the MCP's and her back. She tells us that she has been through so much. When I asked her if she has ever seen a psychiatrist she started crying harder and she can not tell me why. Physical Exam Const alert Constitutional Narrative: Oriented to person and knows she is in [place]. She is tearful and it gets worse when I ask her questions. She is cooperative with her therapy and doing much better with PT and OT. Eyes conjunctivae normal and no scleral icterus Resp normal respiratory effort, normal air movement and clear to auscultation bilaterally Cardio regular rate, regular rhythm and no gallops GI normal to inspection, nondistended, normoactive bowel sounds, soft to palpation and non-tender Extremity Extremity Narrative: She has ulnar deviation of the fingers and pain with palpation of the MCP's. There is no redness and no significant swelling. Assessment & Plan Assessment/Plan (1) Physical debility: (2) S/P coil embolization of cerebral aneurysm: (3) Encephalopathy acute: (4) Hyponatremia: (5) IVH (intraventricular hemorrhage): (6) SAH (subarachnoid hemorrhage): (7) HTN (hypertension): QUALIFIERS: Hypertension type: essential hypertension Qualified Code(s): I10 - Essential (primary) hypertension (8) Anxiety and depression: (9) Chronic constipation: (10) Urine retention: PLAN: 1. I am suspicious there is more to her psychiatric hx than depression and anxiety. She is definitely more alert and better able to do therapy now however, she is much more emotional. Could this be pseudobulbar affect? Could she be bipolar? Does she need a mood stabilizer? She is not having hallucinations. Will need to get in touch with her sister or her son Tushar to talk about any psychiatric hx. 2. Anastrozole can causes anxiety,depression, confusion, arthralgia - how long has she been on this medication? She has ulnar deviation of the fingers......RA? Will check an RA and ESR/CRP. 3. I do not want to use a benzo to calm her down.....will try Buspar. 4. the urine is cloudy today. Will check a UA 5. Rather than start a NSAID orally will try the compounded arthritis cream because it will have less systemic side effects. Visit Charges Inpatient E&M: 06923 Subs Hosp L2
[2021-02-14] MEDS: Acetaminophen 325 MG Tablet 650 MG PO (10:29)
[2021-02-14 11:00] VITALS: BP 106/70; BP 134/86; BP 138/96; PULSE 75; PULSE 78; PULSE 89
--- NOTE | 2021-02-14 11:32 | RAD_ITS ---
HISTORY: PAIN. TECHNIQUE: XR Hand Min 3 Views. # of images incl. paperwork: 3. COMPARISON: None. FINDINGS: BONES: No acute fracture identified. Mineralization unremarkable. JOINTS: No dislocation. Degenerative changes. RAD/Hand Min 3 Views IMPRESSION: No acute fracture or dislocation identified. Degenerative changes in the left hand. at 1238 Reported and signed by: Ana María Galaviz MD Electronically Signed: Ana María Galaviz MD at 12:37 EDT Tel , Service support ,
--- NOTE | 2021-02-14 12:05 | RAD_ITS ---
STUDY: X-RAY - RIGHT HAND REASON FOR EXAM: Female, 76 years old. Pain TECHNIQUE: 3 view(s) of the hand. COMPARISON: None. FINDINGS: Normal radiocarpal articulation. Normal distal radioulnar joint. Normal visualized carpal bones. Normal carpal articulations Normal carpometacarpal articulation of the thumb. Normal second through fifth carpometacarpal joints. Normal metacarpi. Normal metacarpophalangeal joint of the thumb. Mild interphalangeal joint narrowing. Normal proximal and distal phalanges of the thumb. Normal metacarpophalangeal joints of the second through fifth fingers. Mild PIP and DIP joint arthrosis. Normal phalanges of the second through fifth fingers. The soft tissue structures are unremarkable. RAD/Hand Min 3 Views IMPRESSION: Age consistent degenerative changes, no acute findings. Electronically Signed: Maykel Weir MD at 16:50 EDT , Service support ,
[2021-02-14 12:07] LABS: Erythrocyte Sedimentation Rate 19 mm/hr (0-30)
[2021-02-14 12:13] LABS: Rheumatoid Factor < 10.0 IU/mL (<15); Thyroid Stim Hormone (TSH) 1.84 uIU/mL (0.358-3.74)
[2021-02-14] MEDS: busPIRone 5 MG Tablet PO ×2 (12:24→20:27)
--- NOTE | 2021-02-14 14:51 | CASEMGMT ---
Addendum entered by Tammie Beltran 02/14/21 15:54: Spoke with [facility] and their cost is $12,400 before therapy. Spoke with son and unable to pay. Offered to contact SNFs in [place] for pricing. [facility] does not have beds available, but [facility] does. Their pricing is $190/day. Referral made. Will continue to follow. Original Note: Social Work Received call from son. Answered questions. Reexplained insurance coverage, SNF stay, etc., from previous conversation. Explained pt would need to spend down before applying for EDUARDO which would be paid to the SNF - the 30 days up front. Son would like referral to [facility]. Still unsure if pt will DC home or to SNF if cut from insurance. Referral made. Will continue to follow. Tammie Beltran, [facility]
[2021-02-14] MEDS: Arthritis Pain Compound 60 CLICK TUBE TOPICAL ×2 (16:18→20:39)
[2021-02-14 16:25] LABS: Mucous, Urine 0 SEEN /hpf (<or=2+); Squamous Epithelial Cells - UA 0 SEEN /hpf (5-10)
[2021-02-14 16:27] LABS: Color, Urine Amber (Yellow); Glucose, Dipstick Normal (Normal); Ketone-Dipstick 5 mg/dl (Negative); Leukocyte Esterase-Dipstick 500 /ul (Negative); Nitrite-Dipstick Positive (Negative); Occult Blood-Urine 250 /ul (Negative); Protein-Dipstick 30 mg/dl (Negative); Specific Gravity, Urine 1.025 (1.002-1.030); Urine Bilirubin Dipstick Negative (Negative); Urine Clarity Cloudy (Clear); Urine Urobilinogen 4 mg/dl (Normal)
[2021-02-14 16:39] LABS: Bacteria 1+ /hpf (None Seen); Red Blood Cells-Urine 25-50 SEEN /hpf (0-5); White Blood Cells >100 SEEN /hpf (0-5)
[2021-02-14] MEDS: Ceftriaxone 1 GM/50 ML BAG IV (17:35)
[2021-02-14] MEDS: 0.9% Saline Lock 10 ML Syringe IV (17:35)
[2021-02-14 18:53] VITALS: BP 122/86; PULSE 74; RESP 16; TEMP 36.8; O2SAT 97
[2021-02-14 19:53] VITALS: PULSE 74; RESP 16; O2SAT 97
[2021-02-14] MEDS: Nortriptyline 25 MG Capsule 75 MG PO (20:28)
[2021-02-14] MEDS: QUEtiapine 25 MG Tablet PO (20:30)
--- NOTE | 2021-02-14 20:45 | NURSING ---
Pt struggled to get encouraged fluids in. Sister unable to get pt to take fluids as well, while visiting. When fluids are encouraged, pt pushed water bottle away which sister stated was her favorite bottle. Pt resistant to care this hs.
[2021-02-15] MEDS: 0.9% Saline Lock 10 ML Syringe IV ×2 (00:07→10:58)
[2021-02-15] MEDS: Acetaminophen 325 MG Tablet 650 MG PO (06:40)
[2021-02-15] MEDS: Arthritis Pain Compound 60 CLICK TUBE TOPICAL ×2 (06:47→19:55)
--- NOTE | 2021-02-15 06:54 | NURSING ---
upon entering pt room this a.m. Pt was found biting on hand and pulling the skin with teeth. When confronted with this action, pt responded, I am? A red zafar was visible to left hand. Pt tearful while staff was in room but could not identify what was upsetting pt. Staff attempted to comfort pt to no avail. Pt sitting in wheelchair in MP room.
[2021-02-15 07:09] VITALS: BP 142/79; PULSE 89; RESP 20; TEMP 36.4; O2SAT 95
[2021-02-15] MEDS: Atenolol 25 MG Tablet 75 MG PO (07:33)
[2021-02-15] MEDS: Lidocaine 5% Patch 1 PATCH TOPICAL (07:33)
[2021-02-15] MEDS: busPIRone 5 MG Tablet PO ×2 (07:33→19:56)
[2021-02-15] MEDS: Aspirin E.C. 81 MG Tablet PO (07:33)
[2021-02-15] MEDS: Anastrozole 1 MG TABLET PO (07:33)
[2021-02-15] MEDS: Heparin Injection (Vial) 5,000 UNIT/ML VIAL 5000 UNIT SC ×2 (07:34→19:56)
--- NOTE | 2021-02-15 08:57 | PN_ITS ---
Progress Note Judi was seen on team rounds today. Day #2 Rocephin Afebrile VSS-blood pressure is well controlled. Maintaining appropriate oxygen saturation on RA Oral intake on 02/14/2021 was 771. Urine output was 650 cc. She had no bowel movements yesterday but she had a bowel movement this morning. Discussed with nursing - She was biting herself on the left hand yesterday and crying frequently. Can not tell staff why she was biting herself and in fact when asked why she was biting her hand she was unaware that she was. Unable to communicate to staff why she is crying. Reviewed the PT/OT/ST notes Medication list reviewed. All lab from yesterday was personally reviewed. The ESR was within normal limits at 19 but the C-reactive protein was significantly elevated at 57.7. This may be due to urinary tract infection. UA was consistent with infection. Urine culture is pending. She was started on Rocephin yesterday. I talked to Chema's son Tushar and her dtr Sade. Judi has no significant psych history other than depression and some anxiety. There is no FH of BPD. She denies cephalgia. She is not having hallucinations. Physical Exam Const alert Constitutional Narrative: She is much more alert since the Pamelor has been tapered. She is able to follow simple commands but, she needs to be give voice cues for each step of an activity. She willingly participates in therapy daily. Recall is poor. Behavior changes seem to wax and wane. She does not appear to be in any distress. General Appearance: cooperative, well developed and anxious Eyes EOMs intact bilaterally, conjunctivae normal and no scleral icterus Neck No nuchal rigidity, no lymphadenopathy and supple Resp normal respiratory effort, normal air movement and clear to auscultation bilaterally Resp Narrative: No Rales, wheezes or rhonchi. She is not tachypneic at rest or with exertion. There is no accessory muscle use. She has no conversational dyspnea. Cardio regular rate, regular rhythm, S1 normal heart sound, S2 normal heart sound, no rub and no gallops GI normal to inspection, nondistended, normoactive bowel sounds, soft to palpation and non-tender Extremity no calf tenderness and no pedal edema Skin General Skin Exam: no breakdown Rashes: no rashes Neuro CN's II-XII intact bilaterally, moves all extremities, no focal motor deficits and no sensory deficits noted Neuro Narrative: Oriented to person only. No focal motor seizures noted. No tonic-clonic seizures. Our biggest challenge to date has been mentation/delirium. Assessment & Plan Assessment/Plan (1) Physical debility: PLAN: Making good progress with PT and OT. Confusion continues to be a problem. Poor recall, needing multiple voice cues to complete an activity. (2) S/P coil embolization of cerebral aneurysm: (3) Obstructive hydrocephalus: PLAN: Status post EVD with resolution of hydrocephalus. Rare c/o LUA. I do not think that recurrent hydrocephalus is the etiology of the cognitive dysfunction and bizarre behavior issues. (4) IVH (intraventricular hemorrhage): (5) SAH (subarachnoid hemorrhage): (6) UTI (urinary tract infection) due to urinary indwelling Jose catheter: PLAN: She was started on Rocephin yesterday and results of the urine culture are still pending. We will continue Rocephin and wait for the results. (7) Urine retention: PLAN: This is most likely secondary to very high-dose Pamelor. Following treatment for UTI will attempt to discontinue the Jose catheter and check postvoid residuals (8) Adverse reaction to drug: PLAN: drowsiness and confusion with Pamelor in the face of acute SAH and IVH. Continue to taper the Pamelor 25 mg weekly to avoid withdrawal. (9) Normochromic normocytic anemia: PLAN: Stable (10) Anxiety and depression: PLAN: Continue to monitor. (11) Chronic constipation: PLAN: Most likely secondary to high-dose Pamelor. We will continue stool softeners. She has been having regular bowel movements now. (12) HTN (hypertension): QUALIFIERS: Hypertension type: essential hypertension Qualified Code(s): I10 - Essential (primary) hypertension PLAN: Goal blood pressure is less than 130/80. We will continue to adjust antihypertensives to achieve this goal. (13) Delirium: PLAN: This is likely multifactorial. Contributing factors include in traventricular hemorrhage/subarachnoid hemorrhage, medications, recent hydrocephalus, toxic/metabolic encephalopathy. I am still puzzled by some of her behavior including biting herself, spitting out her pills, needing someone to feed her......... will obtain an EEG to rule out nonconvulsive seizures as etiology of confusion and bizarre behavior. Visit Charges Inpatient E&M: 57139 Subs Hosp L3
[2021-02-15] MEDS: Ceftriaxone 1 GM/50 ML BAG IV (10:58)
[2021-02-15] MEDS: 0.9% Normal Saline 1,000 ML 75 ML IV (11:48)
--- NOTE | 2021-02-15 13:12 | TELEMED_ITS ---
SOC Telemed has confirmed receipt of a request for visit. This document confirms receipt of the order initiating the consult. To find the results of the consultation, please view the patient's reports for the scanned Telemed Consult.
--- NOTE | 2021-02-15 14:42 | CASEMGMT ---
Social Work Team meeting held with pt, pt's sister Shazia and pts son Tushar present and pt dgt Sade on conference call. Pt is currently receiving PT/OT/ST. Pt behaviors improved over yesterday and pt is calmer and able to participate better. SW explained that insurance update is today and continued stay is not guaranteed. SW stressed need for back up plan should pt be discharged from Rehab unit. Tammie CORNELIUS had spoke with Tushar Villegas [facility] and referral had been faxed. SW spoke with [facility] prior to the meeting and they are able to accept pt, will apply for precert but if denied pt would go private pay. Family updated on this as well as pricing for [facility]. Tushar requesting that all SW communication now go through his sister Sade [phone]. Family non committal to back up plan at this time. SW will continue to follow. THEA Kaye
[2021-02-15] MEDS: Nortriptyline 25 MG Capsule 75 MG PO (19:56)
[2021-02-15 19:57] VITALS: BP 149/68; PULSE 66; RESP 17; TEMP 36.8; O2SAT 98
[2021-02-15] MEDS: QUEtiapine 25 MG Tablet PO (19:57)
[2021-02-15] MEDS: Sodium Chloride 1 GM Tablet 3 GM PO (22:23)
[2021-02-16] MEDS: 0.9% Normal Saline 1,000 ML 75 ML IV ×2 (01:39→17:29)
[2021-02-16] MEDS: Atenolol 25 MG Tablet 75 MG PO (07:31)
[2021-02-16] MEDS: Lidocaine 5% Patch 1 PATCH TOPICAL (07:31)
[2021-02-16] MEDS: Polyethylene Glycol 3350 17 GM PACKET PO (07:31)
[2021-02-16] MEDS: Aspirin E.C. 81 MG Tablet PO (07:32)
[2021-02-16] MEDS: Anastrozole 1 MG TABLET PO (07:32)
[2021-02-16] MEDS: busPIRone 5 MG Tablet PO ×3 (07:32→21:41)
[2021-02-16] MEDS: Lisinopril 20 MG Tablet PO (07:32)
[2021-02-16 07:44] VITALS: BP 132/87; PULSE 75; RESP 18; TEMP 36.4; O2SAT 98
[2021-02-16] MEDS: Heparin Injection (Vial) 5,000 UNIT/ML VIAL 5000 UNIT SC ×2 (09:22→21:41)
[2021-02-16] MEDS: Ceftriaxone 1 GM/50 ML BAG IV (11:11)
[2021-02-16] MEDS: 0.9% Saline Lock 10 ML Syringe IV (11:11)
[2021-02-16] MEDS: Arthritis Pain Compound 60 CLICK TUBE TOPICAL ×2 (14:11→21:41)
--- NOTE | 2021-02-16 17:11 | CASEMGMT ---
Social Work SW received call from pt son Tushar inquiring about private pay cost for TCU. SW provided information. SW received call from pt dgt Dillon Parkinson inquiring about home health services. SW explained the difference between skill home care and private duty care and what each could provide for pt. SW emailed Dillon list of Private duty companies. SW informed Dillon that a discharge plan needs to be determined by family as pt will likly not stay in Rehab beyond this week. Dillon acknowledges understanding and is aware SW is available for further questions. THEA Kaye
[2021-02-16] MEDS: Acetaminophen 325 MG Tablet 650 MG PO (18:21)
[2021-02-16 19:30] VITALS: BP 138/66; PULSE 64; RESP 18; TEMP 36.8; O2SAT 96
[2021-02-16] MEDS: QUEtiapine 25 MG Tablet PO (21:42)
[2021-02-16] MEDS: Nortriptyline 25 MG Capsule 75 MG PO (21:42)
[2021-02-16] MEDS: Sodium Chloride 1 GM Tablet 3 GM PO (21:43)
[2021-02-17] MEDS: busPIRone 5 MG Tablet PO ×3 (05:22→20:38)
[2021-02-17] MEDS: Arthritis Pain Compound 60 CLICK TUBE TOPICAL ×3 (05:23→20:36)
[2021-02-17 07:30] VITALS: BP 151/81; PULSE 83; RESP 16; TEMP 37.2; O2SAT 95
[2021-02-17] MEDS: 0.9% Normal Saline 1,000 ML 75 ML IV ×2 (07:45→23:36)
[2021-02-17] MEDS: Polyethylene Glycol 3350 17 GM PACKET PO (08:58)
[2021-02-17] MEDS: Ceftriaxone 1 GM/50 ML BAG IV (09:11)
--- NOTE | 2021-02-17 09:22 | NURSING ---
Patient refused AM meds x 3 attempts, reapproached and 1:1 provided with no effect. Left alone to validate feelings, will retry.
[2021-02-17] MEDS: Haloperidol Lactate 5 MG/ML Vial 1 MG IV ×2 (10:02→20:07)
--- NOTE | 2021-02-17 10:46 | PCM.PN.BLA ---
Progress Note Afebrile VSS-blood pressure is more often than not outside of goal. Maintaining appropriate oxygen saturation on RA Oral intake is improving. Discussed with nursing - Nursing reported to me that Judi fed herself today. Reviewed the PT/OT/ST notes Medication list reviewed. She had back pain yesterday which is chronic and it improved with Tylenol. She denies CP, SOB, cough, sore throat, N/V, abd pain. The back pain may be due to the UTI also. Physical Exam Const alert Constitutional Narrative: Oriented to person only. She knows she is in [place] but she cannot recall where in [place] and why she is here. General Appearance: cooperative Eyes conjunctivae normal and no scleral icterus General Eye: normal appearance of both eyes Neck full ROM, No nuchal rigidity and no lymphadenopathy General: trachea midline Resp normal respiratory effort, normal air movement and clear to auscultation bilaterally Cardio regular rate, regular rhythm, S1 normal heart sound, S2 normal heart sound and no gallops GI normal to inspection, nondistended, normoactive bowel sounds, soft to palpation and non-tender Extremity Extremity Narrative: No edema. RADHA hose are in place bilaterally. Negative Jimenez and negative Homans signs Skin General Skin Exam: no breakdown Rashes: no rashes Assessment & Plan Assessment/Plan (1) S/P coil embolization of cerebral aneurysm: (2) Delirium: (3) Physical debility: (4) UTI (urinary tract infection) due to urinary indwelling Jose catheter: (5) Hyponatremia: (6) HTN (hypertension): QUALIFIERS: Hypertension type: essential hypertension Qualified Code(s): I10 - Essential (primary) hypertension PLAN: 1. Decrease the Atenolol and add Norvasc 5 mg daily starting today. Continue the Lisinopril. Beta blockers are not the first choice as antihypertensive in the elderly and can contribute to confusion. She does not have a hx of CAD or AF. she likely needs dual therapy. Will try to control with an JEANNIE inhibitor and a dihydropyridine calcium channel saadia. Diuretics are contraindicated in this patient secondary to very poor oral intake and requirement for IV fluids periodically. 2. Waiting for the report on the EEG. No seizure activity observed. Seems to be calming down with the addition of the Buspar to the drug regimen and tx of the UTI. 3. Continue therapy 4. Recheck lab on Friday since the NACL tabs have weaned. If the sodium is > 134 will wean again. Visit Charges Inpatient E&M: 25460 Subs Hosp L2
[2021-02-17] MEDS: Anastrozole 1 MG TABLET PO (11:16)
[2021-02-17] MEDS: Lisinopril 20 MG Tablet PO (11:16)
[2021-02-17] MEDS: Sodium Chloride 1 GM Tablet 3 GM PO ×2 (11:16→20:41)
[2021-02-17] MEDS: amLODIPine 5 MG Tablet PO (13:37)
[2021-02-17 19:24] VITALS: BP 142/80; PULSE 74; RESP 18; TEMP 36.1; O2SAT 100
--- NOTE | 2021-02-17 20:14 | NURSING ---
pt set off bed alarm and when staff responded, pt was found trying to get out of bed with sister at bedside. Pt was abrupt and mcginnis with sister telling her to Get Out! When staff attempted to get pt repositioned in bed, pt stated she would when her sister leaves. Pt was uncooperative with staff and trying to pull at midline. Haldol prn was administered. Pt repositioned in bed and staff attempted to redirect conversation.
[2021-02-17] MEDS: Heparin Injection (Vial) 5,000 UNIT/ML VIAL 5000 UNIT SC (20:38)
[2021-02-17] MEDS: Nortriptyline 25 MG Capsule 50 MG PO (20:39)
[2021-02-17] MEDS: QUEtiapine 25 MG Tablet PO (20:40)
[2021-02-17 22:00] VITALS: PULSE 76; RESP 17; O2SAT 96
[2021-02-18] MEDS: Haloperidol Lactate 5 MG/ML Vial 1 MG IV (03:59)
--- NOTE | 2021-02-18 04:06 | NURSING ---
pt impulsive, agitated, pulling at JEANNIE wrap around midline and legs thrown over side of bed. Haldol prn given.
[2021-02-18] MEDS: busPIRone 5 MG Tablet PO ×3 (05:00→20:38)
[2021-02-18] MEDS: Arthritis Pain Compound 60 CLICK TUBE TOPICAL ×2 (05:01→20:39)
[2021-02-18 08:02] VITALS: BP 152/80; PULSE 79; RESP 17; TEMP 36.6; O2SAT 98
[2021-02-18] MEDS: Polyethylene Glycol 3350 17 GM PACKET PO (08:11)
[2021-02-18] MEDS: Acetaminophen 325 MG Tablet 650 MG PO (08:12)
[2021-02-18] MEDS: Folic Acid 1 MG Tablet 0.5 MG PO (08:17)
[2021-02-18] MEDS: Aspirin E.C. 81 MG Tablet PO (08:17)
[2021-02-18] MEDS: Atenolol 25 MG Tablet PO (08:18)
[2021-02-18] MEDS: Sodium Chloride 1 GM Tablet 3 GM PO ×2 (08:18→20:37)
[2021-02-18] MEDS: Anastrozole 1 MG TABLET PO (08:18)
[2021-02-18] MEDS: Lisinopril 20 MG Tablet PO (08:18)
[2021-02-18] MEDS: Potassium Chloride Oral Tablet 20 MEQ PO (08:18)
--- NOTE | 2021-02-18 09:51 | PCM.PN.BLA ---
Progress Note Day #2 Unasyn for enterococcal UTI. Afebrile VSS - systolic BP is still above goal. HR is WNL. Maintaining appropriate oxygen saturation on RA Oral intake is erratic. Yesterday her oral intake was 920. A total intake was 3194 and she had 2700 cc out for a fluid balance of +494. Discussed with nursing - Did not sleep well last night and was restless. She had Haldol twice yesterday and this seems to calm her down for a while. she fed herself yesterday morning for nursing. The Pamelor dose was tapered to 50 mg 2 days ago. Intermittently agitated during the day. Reviewed the PT/OT/ST notes Medication list reviewed. Judi is drowsy for me this morning due to the Haldol given earlier for agitation. The urine in the Jose bag is now pale yellow and clear. She denies LUA, SOB, CP, N/V, back pain, cough, sore throat. She is nodding off to sleep as I am talking wth her. Physical Exam Const Constitutional Narrative: Sleepy today and wanting to stay in bed. She was a little agitated with nursing today and spit her pills out. Eyes conjunctivae normal and no scleral icterus Neck no lymphadenopathy and supple Resp normal respiratory effort and clear to auscultation bilaterally Resp Narrative: BS's are diminished today......she is not cooperating with taking a deep breath or breathing through her mouth today. Cardio regular rate and regular rhythm Extremity no calf tenderness and no pedal edema Skin Rashes: no rashes Assessment & Plan Assessment/Plan (1) Physical debility: (2) Delirium: (3) UTI (urinary tract infection) due to urinary indwelling Jose catheter: (4) Insomnia: (5) Indwelling Jose catheter present: PLAN: 1. Increase the Seroquel to 37.5 mg at HS and give 12.5 mg during the day. The Pamelor was likely helping her to sleep at night and now that we are weaning the Pamelor the insomnia has recurred. 2. Increase the Amlodipine to 10 mg daily. Keep the Lisinopril at 20 mg daily and continue the Atenolol 25 mg. After she has been on the Amlodipine 4-5 days will DC the Atenolol and attempt to control the BP with 2 antihypertensives only. Will increase the Lisinopril to BID if the BP is still above goal. 3. Continue Unasyn for a total of 7 days. 4. Lab is ordered for tomorrow. Visit Charges Inpatient E&M: 20094 Subs Hosp L2
[2021-02-18] MEDS: 0.9% Normal Saline 1,000 ML 75 ML IV (10:01)
[2021-02-18] MEDS: QUEtiapine 25 MG Tablet 12.5 MG PO (10:40)
[2021-02-18] MEDS: Senna/Docusate Sodium 1 Tablet 2 TABLET PO ×2 (10:43→20:37)
[2021-02-18] MEDS: amLODIPine 10 MG Tablet PO (11:28)
[2021-02-18] MEDS: 0.9% Saline Lock 10 ML Syringe IV (14:22)
[2021-02-18 20:19] VITALS: BP 134/76; PULSE 83; RESP 16; TEMP 36.1; O2SAT 99
[2021-02-18] MEDS: Nortriptyline 25 MG Capsule 50 MG PO (20:37)
[2021-02-18] MEDS: Heparin Injection (Vial) 5,000 UNIT/ML VIAL 5000 UNIT SC (20:38)
[2021-02-18] MEDS: QUEtiapine 25 MG Tablet 37.5 MG PO (20:38)
[2021-02-19] MEDS: 0.9% Normal Saline 1,000 ML 75 ML IV (00:15)
[2021-02-19] MEDS: Arthritis Pain Compound 60 CLICK TUBE TOPICAL ×3 (05:09→20:39)
[2021-02-19] MEDS: busPIRone 5 MG Tablet PO ×3 (05:09→20:39)
[2021-02-19 07:06] LABS: Absolute Lymphocyte Count 0.64 X10^3/uL (0.83-4.51); Absolute Neutrophil Count 3.7 X10^3/uL (2.0-7.7); Basophil# 0.02 X10^3/uL; Basophil% 0.4 % (0-1); Eosinophil# 0.27 X10^3/uL; Eosinophils% 5.4 % (0-5); Hemoglobin 12.1 g/dL (12.0-15.0); Lymphocyte # 0.64 X10^3/ul (0.83-4.51); Lymphocyte % 12.8 % (19-41); Mean Corp Hgb Conc 31.8 g/dL (32-36); Mean Corpuscular Hgb 30.9 pg (27.0-32.0); Mean Corpuscular Volume 96.9 fL (81-99); Mean Platelet Vol. 8.6 fl (6.2-12.0); Monocyte# 0.31 X10^3/uL; Monocyte% 6.2 % (0-10); NRBC Flagged by Analyzer 0 % (0-5); Neutrophil # 3.73 X10^3/uL (2.7-7.7); Neutrophil % 74.8 % (47-70); Platelet Count 306 K/mm3 (150-450); RBC Distribution Width CV 13.2 % (11.6-14.6); RBC Distribution Width SD 47.5 fl (35.1-43.9); Red Blood Count 3.92 M/mm3 (4.2-5.4)
[2021-02-19 07:32] LABS: Anion Gap 7 (5-15); BUN 8 mg/dL (7-18); BUN/Creat Ratio 11.7 RATIO (10-20); Calcium,Total 8.8 mg/dL (8.5-10.1); Chloride 107 mmol/L (98-107); Creatinine, Serum 0.68 mg/dL (0.55-1.02); EST Glomerular Filtration Rate 90 mL/min (>60); Est Glom Filt Rate - Afr Amer 108 mL/min (>60); Estimated Creatinine Clearance 40.21 ml/min; Glucose 135 mg/dL (74-106); Magnesium 2.3 mg/dL (1.6-2.6); Potassium 4.2 mmol/L (3.5-5.1); Sodium Level 141 mmol/L (136-145)
[2021-02-19] MEDS: Lidocaine 5% Patch 1 PATCH TOPICAL (07:50)
[2021-02-19] MEDS: Polyethylene Glycol 3350 17 GM PACKET PO (07:50)
[2021-02-19] MEDS: Folic Acid 1 MG Tablet 0.5 MG PO (07:50)
[2021-02-19] MEDS: amLODIPine 10 MG Tablet PO (07:51)
[2021-02-19] MEDS: Potassium Chloride Oral Tablet 20 MEQ PO (07:51)
[2021-02-19] MEDS: Aspirin E.C. 81 MG Tablet PO (07:51)
[2021-02-19] MEDS: Sodium Chloride 1 GM Tablet 3 GM PO (07:51)
[2021-02-19] MEDS: Pantoprazole Sodium 20 MG Tablet PO (07:52)
[2021-02-19] MEDS: Atenolol 25 MG Tablet PO (07:52)
[2021-02-19] MEDS: Lisinopril 20 MG Tablet PO (07:52)
[2021-02-19] MEDS: Senna/Docusate Sodium 1 Tablet 2 TABLET PO ×2 (07:52→20:41)
[2021-02-19] MEDS: QUEtiapine 25 MG Tablet 12.5 MG PO (07:52)
[2021-02-19] MEDS: Anastrozole 1 MG TABLET PO (07:53)
[2021-02-19 08:11] VITALS: BP 140/77; PULSE 83; RESP 20; TEMP 36.5; O2SAT 97
[2021-02-19] MEDS: Heparin Injection (Vial) 5,000 UNIT/ML VIAL 5000 UNIT SC ×2 (09:47→20:40)
--- NOTE | 2021-02-19 11:57 | PN_ITS ---
Progress Note Afebrile VSS Maintaining appropriate oxygen saturation on RA Oral intake is much better. She ate the majority of her breakfast and fed herself this morning. She has water at her bedside and she is drinking it while I am in her room. Discussed with nursing -she slept well last night. Reviewed the PT/OT/ST notes and talked with the therapists. She did much better with PT and OT today. She was able to fold all the pillowcases today without voice cues. She was told she had a doctors appt on Feb 22 and she was able to locate the date on the calendar and told the therapist what day of the week it was without prompting. Medication list reviewed. Judi is very alert today and answering all my questions when asked. She denies CP, cough, sore throat, SOB, N/V/abd pain, back pain, cephalgia. She was able to tell me that she is 76 years old. The EEG G showed abundant overriding low amplitude 0.5 Hz delta slowing of the background with frequent periods of posterior dominant alpha frequencies that are reactive. Photostimulation did not elicit a clear change of the background. Neurology felt these findings are consistent with a diffuse severe cerebral dysfunction that is nonspecific for etiology and may be due to multiple causes including structural, vascular abnormalities toxic/metabolic conditions, sedative medications, hydrocephalus or post ictal conditions. There were no clear epileptiform discharges or seizures during the recording. Physical Exam Const alert, oriented x3 and no apparent distress Constitutional Narrative: talkative, making good eye contact. Staying on topic. General Appearance: cooperative, comfortable and well kempt; Negative for in distress or combative Resp normal respiratory effort, normal air movement and clear to auscultation bilaterally Effort and Inspection: able to speak in complete sentences Cardio regular rate, regular rhythm, S1 normal heart sound, S2 normal heart sound and no gallops GI normal to inspection, nondistended, normoactive bowel sounds, soft to palpation and non-tender Extremity no calf tenderness and no pedal edema Skin General Skin Exam: no breakdown Rashes: no rashes Neuro oriented x3, CN's II-XII intact bilaterally, moves all extremities and no sensory deficits noted Neuro Narrative: I do not believe she is delirious. She is oriented today and able to follow directions. She made a shopping trip with OT and got 100% of the items in the basket. Speech: speech normal Psych cooperative Psych Narrative: Not crying and very upbeat today. Assessment & Plan Assessment/Plan (1) Insomnia: (2) Physical debility: (3) Normochromic normocytic anemia: (4) S/P coil embolization of cerebral aneurysm: (5) Obstructive hydrocephalus: (6) IVH (intraventricular hemorrhage): (7) SAH (subarachnoid hemorrhage): (8) HTN (hypertension): QUALIFIERS: Hypertension type: essential hypertension Qualified C ode(s): I10 - Essential (primary) hypertension (9) Anxiety and depression: PLAN: 1. I feel there must be some underlying psychiatric diagnosis other than anxiety/depression. She is oriented now and able to follow directions. There has been a marked improvement with treating the UTI. There may have been delirium due to infection but she is delusional and this persists after the infection has resolved. Family insists she was fine before BUT, there has to be a reason she was on such high dose Pamelor. It was making her very drowsy and she is alert and able to do therapy now. She did very well today with therapy. Judi tells me she has seen a psychiatrist in the past but, can not tell me her diagnosis or who the doctor was or when she saw the doctor. Will continue therapy. There has been such and improvement now that she was transitioned to a drug that covers the Enterococcus I do not think she is having non-convulsive seizures. I also do not think she has hydrocephalus either. Family called the neurosurgeon and discussed the case. The PA/POULTRY CUTTER called me and we discussed how she is doing. She told me that Dr. Crawford would consider transferring her and placing a Lumbar drain to see if that helped with the delusions. Judi denies headache, she is not ataxic and she is not confused today.......she is in fact much better today. In my opinion the risk of a drain benefit at this point. Transferring her again may make confusion worse and we would put her at risk for infection in the CSF. Dr. Crawford will call me back after they talk to Sade again if they will be transferring Judi. I strongly feel that Judi needs to be evaluated by a psychiatrist and a definitive diagnosis made so we know what we are treating. Perhaps a neuropsychiatrist would be best. She slept better with the increase in the Seroquel to 37.5. Visit Charges Inpatient E&M: 35734 Subs Hosp L2
[2021-02-19] MEDS: Amox/Clav 400mg/5ml Susp 800 MG PO (17:10)
[2021-02-19 19:39] VITALS: BP 128/83; PULSE 76; RESP 16; TEMP 36.6; O2SAT 100
[2021-02-19] MEDS: QUEtiapine 25 MG Tablet 37.5 MG PO (20:38)
[2021-02-19] MEDS: Nortriptyline 25 MG Capsule 50 MG PO (20:40)
[2021-02-19 22:00] VITALS: PULSE 76; RESP 16; O2SAT 96
[2021-02-20] MEDS: Arthritis Pain Compound 60 CLICK TUBE TOPICAL ×3 (05:25→22:41)
[2021-02-20] MEDS: busPIRone 5 MG Tablet PO ×3 (05:33→22:40)
[2021-02-20] MEDS: Potassium Chloride Oral Tablet 20 MEQ PO (07:37)
[2021-02-20] MEDS: Lidocaine 5% Patch 1 PATCH TOPICAL (07:37)
[2021-02-20] MEDS: Atenolol 25 MG Tablet PO (07:38)
[2021-02-20] MEDS: Lisinopril 20 MG Tablet PO (07:38)
[2021-02-20] MEDS: amLODIPine 10 MG Tablet PO (07:38)
[2021-02-20] MEDS: QUEtiapine 25 MG Tablet 12.5 MG PO (07:38)
[2021-02-20] MEDS: Ascorbic Acid 500 MG Tablet PO (07:38)
[2021-02-20] MEDS: Anastrozole 1 MG TABLET PO (07:38)
[2021-02-20] MEDS: Folic Acid 1 MG Tablet 0.5 MG PO (07:38)
[2021-02-20] MEDS: Pantoprazole Sodium 20 MG Tablet PO (07:38)
[2021-02-20] MEDS: Aspirin E.C. 81 MG Tablet PO (07:38)
[2021-02-20] MEDS: Amox/Clav 400mg/5ml Susp 800 MG PO ×2 (07:47→17:33)
[2021-02-20] MEDS: Heparin Injection (Vial) 5,000 UNIT/ML VIAL 5000 UNIT SC ×2 (07:47→22:40)
[2021-02-20 08:27] VITALS: BP 146/73; PULSE 95; RESP 16; TEMP 36.8; O2SAT 97
[2021-02-20] MEDS: Acetaminophen 325 MG Tablet 650 MG PO (17:33)
[2021-02-20 19:47] VITALS: BP 134/88; PULSE 93; RESP 16; TEMP 36.7; O2SAT 99
[2021-02-20] MEDS: Senna/Docusate Sodium 1 Tablet 2 TABLET PO (22:39)
[2021-02-20] MEDS: Nortriptyline 25 MG Capsule 50 MG PO (22:40)
[2021-02-20] MEDS: QUEtiapine 25 MG Tablet 37.5 MG PO (22:41)
[2021-02-21] MEDS: busPIRone 5 MG Tablet PO ×3 (05:35→21:28)
[2021-02-21] MEDS: Arthritis Pain Compound 60 CLICK TUBE TOPICAL ×3 (05:36→21:25)
[2021-02-21] MEDS: Acetaminophen 325 MG Tablet 650 MG PO (06:44)
[2021-02-21 07:35] VITALS: BP 107/72; PULSE 91; RESP 16; TEMP 36.7; O2SAT 16
[2021-02-21] MEDS: Anastrozole 1 MG TABLET PO (07:49)
[2021-02-21] MEDS: amLODIPine 10 MG Tablet PO (07:49)
[2021-02-21] MEDS: Ascorbic Acid 500 MG Tablet PO (07:49)
[2021-02-21] MEDS: Atenolol 25 MG Tablet PO (07:49)
[2021-02-21] MEDS: Folic Acid 1 MG Tablet 0.5 MG PO (07:49)
[2021-02-21] MEDS: Pantoprazole Sodium 20 MG Tablet PO (07:49)
[2021-02-21] MEDS: Vitamin E 400 UNITS Capsule 800 UNITS PO (07:49)
[2021-02-21] MEDS: Aspirin E.C. 81 MG Tablet PO (07:49)
[2021-02-21] MEDS: Lisinopril 20 MG Tablet PO (07:49)
[2021-02-21] MEDS: Potassium Chloride Oral Tablet 20 MEQ PO (07:50)
[2021-02-21] MEDS: Lidocaine 5% Patch 1 PATCH TOPICAL (07:50)
[2021-02-21] MEDS: Polyethylene Glycol 3350 17 GM PACKET PO (07:50)
[2021-02-21] MEDS: Amox/Clav 400mg/5ml Susp 800 MG PO ×2 (07:53→17:21)
[2021-02-21] MEDS: Heparin Injection (Vial) 5,000 UNIT/ML VIAL 5000 UNIT SC ×2 (09:04→21:26)
[2021-02-21] MEDS: QUEtiapine 25 MG Tablet 12.5 MG PO (10:30)
--- NOTE | 2021-02-21 11:27 | PCM.PN.BLA ---
Progress Note Antibiotics to cover Enterococcus day # 6/7. Afebrile VSS - BP is controlled Maintaining appropriate oxygen saturation on RA Oral intake is improved. Oral intake yesterday was 1060 cc. She is feeding herself now. Discussed with nursing - She got out of bed and went to the BR today without ringing the call button. 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 The Jose has been out for 2 days and she has no significant post void residuals. She is sleeping well at night and is not drowsy from the small dose of Seroquel given in the AM. Not anxious and not agitated. Taking her pills without spitting them out. Reviewed the PT/OT/ST notes Medication list reviewed.
[2021-02-21 21:00] VITALS: BP 110/67; PULSE 79; RESP 14; TEMP 36.5; O2SAT 96
[2021-02-21] MEDS: QUEtiapine 25 MG Tablet 37.5 MG PO (21:26)
[2021-02-21] MEDS: Nortriptyline 25 MG Capsule 50 MG PO (21:26)
--- NOTE | 2021-02-22 01:36 | NURSING ---
Reviewed and agree with PAI GOW MANAGER assessment and note.
[2021-02-22] MEDS: Arthritis Pain Compound 60 CLICK TUBE TOPICAL ×3 (05:18→21:14)
[2021-02-22] MEDS: busPIRone 5 MG Tablet PO ×3 (05:18→21:14)
[2021-02-22] MEDS: Potassium Chloride Oral Tablet 20 MEQ PO (08:20)
[2021-02-22] MEDS: Polyethylene Glycol 3350 17 GM PACKET PO (08:21)
[2021-02-22] MEDS: Atenolol 25 MG Tablet PO (08:22)
[2021-02-22] MEDS: Ascorbic Acid 500 MG Tablet PO (08:22)
[2021-02-22] MEDS: Senna/Docusate Sodium 1 Tablet 2 TABLET PO (08:23)
[2021-02-22] MEDS: Vitamin E 400 UNITS Capsule 800 UNITS PO (08:23)
[2021-02-22] MEDS: Lisinopril 20 MG Tablet PO (08:24)
[2021-02-22] MEDS: Anastrozole 1 MG TABLET PO (08:24)
[2021-02-22] MEDS: amLODIPine 10 MG Tablet PO (08:24)
[2021-02-22] MEDS: Pantoprazole Sodium 20 MG Tablet PO (08:25)
[2021-02-22] MEDS: Aspirin E.C. 81 MG Tablet PO (08:25)
[2021-02-22] MEDS: Folic Acid 1 MG Tablet 0.5 MG PO (08:25)
[2021-02-22] MEDS: Lidocaine 5% Patch 1 PATCH TOPICAL (08:26)
[2021-02-22] MEDS: QUEtiapine 25 MG Tablet 12.5 MG PO (08:27)
[2021-02-22] MEDS: Amox/Clav 400mg/5ml Susp 800 MG PO ×2 (08:29→17:17)
[2021-02-22] MEDS: Acetaminophen 325 MG Tablet 650 MG PO (08:29)
[2021-02-22 10:00] VITALS: BP 97/66; PULSE 91; RESP 16; TEMP 36.7; O2SAT 99
[2021-02-22] MEDS: Heparin Injection (Vial) 5,000 UNIT/ML VIAL 5000 UNIT SC ×2 (10:14→21:14)
--- NOTE | 2021-02-22 14:50 | CASEMGMT ---
Social Work IDT met with patient, sister, and two dtrs via conference call for Team meeting. Discussed patient's progress in therapy and nursing. Pt making good progress from last week. adjusting medications to assist with psychosocial issues. Explained [facility] insurance with [employer]D 02/22 and continued stay is not guaranteed. However, explained/cautioned to family that insurance continued stay approval is not a guarantee of payment for RU. [facility] historically relies on the facility to issue a discharge when pt is no longer appropriate for this level of care. If insurance continues to approve stay at the time but once pt DCs and the case is reviewed from insurance and they deemed services not covered d/t not meeting criteria, the pt is responsible for that bill - explained RU is about $1,500/day. Explained goal is to transfer pt to SNF soon. Answered family questions. Inquired if [facility] is still the plan - family to discuss and confirm with SW. Offered to refer to other facilities. Explained SNF will submit for precert, but unlikely SNF will be approved, thus pt would admit private pay room and board and receive part B therapies. Pt is not COVID vaccinated and explained current 14-quarantine policy and each facility has different policies on visitation. But confirmed pt will still receive therapies while in quarantine. Family expressed understanding. Spoke with [facility] - they requested updated clinicals, but still able to accept pt. Explained recommending psychologist consult at [facility] - confirmed pt could receive those services. Will continue to follow. Tammie Beltran, [facility]
[2021-02-22 19:33] VITALS: BP 114/73; PULSE 84; RESP 14; TEMP 36.6; O2SAT 96
[2021-02-22] MEDS: Nortriptyline 25 MG Capsule 50 MG PO (21:14)
[2021-02-22] MEDS: QUEtiapine 25 MG Tablet 37.5 MG PO (21:15)
[2021-02-23] MEDS: busPIRone 5 MG Tablet PO ×3 (05:32→20:56)
[2021-02-23] MEDS: Arthritis Pain Compound 60 CLICK TUBE TOPICAL ×3 (05:32→20:55)
[2021-02-23] MEDS: Pantoprazole Sodium 20 MG Tablet PO (08:05)
[2021-02-23] MEDS: Vitamin E 400 UNITS Capsule 800 UNITS PO (08:05)
[2021-02-23] MEDS: Aspirin E.C. 81 MG Tablet PO (08:05)
[2021-02-23] MEDS: Anastrozole 1 MG TABLET PO (08:05)
[2021-02-23] MEDS: Potassium Chloride Oral Tablet 20 MEQ PO (08:05)
[2021-02-23] MEDS: amLODIPine 10 MG Tablet PO (08:06)
[2021-02-23] MEDS: Lisinopril 20 MG Tablet PO (08:06)
[2021-02-23] MEDS: Acetaminophen 325 MG Tablet 650 MG PO (08:14)
[2021-02-23] MEDS: Folic Acid 1 MG Tablet 0.5 MG PO (08:14)
[2021-02-23] MEDS: Amox/Clav 400mg/5ml Susp 800 MG PO (08:15)
[2021-02-23] MEDS: Ascorbic Acid 500 MG Tablet PO (08:22)
[2021-02-23] MEDS: Heparin Injection (Vial) 5,000 UNIT/ML VIAL 5000 UNIT SC ×2 (08:23→20:58)
[2021-02-23 08:28] VITALS: BP 108/66; PULSE 92; RESP 18; TEMP 36.7; O2SAT 97
--- NOTE | 2021-02-23 10:24 | CASEMGMT ---
Addendum entered by Tammie Beltran 02/23/21 15:29: Received return phone call from Sade. Answered questions. Reexplained [employer] coverage in RU and SNF. Encouraged to have sister bradley Bakari and other SNFs and agreed to have Sade call this worker on Friday with outcome. Will continue to follow. Original Note: Social Work Left message with dtr, Sade, to follow up on DC plans. Will continue to follow. SIERRA VillaseñorW
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
[2021-02-23] MEDS: QUEtiapine 25 MG Tablet 12.5 MG PO (13:29)
[2021-02-23 20:03] VITALS: BP 111/73; PULSE 87; RESP 16; TEMP 36.4; O2SAT 100
[2021-02-23] MEDS: Nortriptyline 25 MG Capsule PO (20:58)
[2021-02-23] MEDS: QUEtiapine 25 MG Tablet 37.5 MG PO (20:59)
--- NOTE | 2021-02-24 02:31 | NURSING ---
Reviewed and agree with EDGE BANDER HAND assessment.
[2021-02-24] MEDS: busPIRone 5 MG Tablet PO ×3 (05:11→20:09)
[2021-02-24] MEDS: Arthritis Pain Compound 60 CLICK TUBE TOPICAL ×2 (05:11→14:39)
[2021-02-24 08:02] LABS: Hematocrit 42.5 % (37-47)
[2021-02-24 08:21] VITALS: BP 111/69; PULSE 90; RESP 16; TEMP 36.2; O2SAT 100
[2021-02-24 08:36] LABS: Anion Gap 9 (5-15); BUN 17 mg/dL (7-18); BUN/Creat Ratio 17.7 RATIO (10-20); Calcium,Total 9.7 mg/dL (8.5-10.1); Chloride 102 mmol/L (98-107); Creatinine, Serum 0.96 mg/dL (0.55-1.02); EST Glomerular Filtration Rate 60 mL/min (>60); Est Glom Filt Rate - Afr Amer 73 mL/min (>60); Estimated Creatinine Clearance 41.89 ml/min; Glucose 222 mg/dL (74-106); Potassium 5.4 mmol/L (3.5-5.1); Sodium Level 137 mmol/L (136-145)
[2021-02-24] MEDS: Heparin Injection (Vial) 5,000 UNIT/ML VIAL 5000 UNIT SC ×2 (09:05→20:08)
[2021-02-24] MEDS: Pantoprazole Sodium 20 MG Tablet PO (09:05)
[2021-02-24] MEDS: Vitamin E 400 UNITS Capsule 800 UNITS PO (09:05)
[2021-02-24] MEDS: Anastrozole 1 MG TABLET PO (09:06)
[2021-02-24] MEDS: Aspirin E.C. 81 MG Tablet PO (09:06)
[2021-02-24] MEDS: Folic Acid 1 MG Tablet 0.5 MG PO (09:06)
[2021-02-24] MEDS: Lisinopril 20 MG Tablet PO (09:06)
[2021-02-24] MEDS: Acetaminophen 325 MG Tablet 650 MG PO (09:06)
[2021-02-24] MEDS: Polyethylene Glycol 3350 17 GM PACKET PO (09:08)
[2021-02-24] MEDS: QUEtiapine 25 MG Tablet 12.5 MG PO (09:08)
[2021-02-24] MEDS: amLODIPine 10 MG Tablet PO (09:12)
[2021-02-24] MEDS: Ascorbic Acid 500 MG Tablet PO (09:12)
[2021-02-24 19:17] VITALS: BP 109/67; PULSE 110; RESP 16; TEMP 36.6; O2SAT 99
[2021-02-24] MEDS: Nortriptyline 25 MG Capsule PO (20:09)
[2021-02-24] MEDS: QUEtiapine 25 MG Tablet 37.5 MG PO (21:46)
[2021-02-25] MEDS: busPIRone 5 MG Tablet PO ×3 (05:23→22:29)
[2021-02-25] MEDS: Arthritis Pain Compound 60 CLICK TUBE TOPICAL ×3 (05:26→22:29)
[2021-02-25 05:29] VITALS: BP 114/75; PULSE 106; RESP 16; TEMP 36.7; O2SAT 100
[2021-02-25 07:16] VITALS: BP 112/70; PULSE 100; RESP 17; TEMP 36.7; O2SAT 100
[2021-02-25] MEDS: Heparin Injection (Vial) 5,000 UNIT/ML VIAL 5000 UNIT SC ×2 (09:59→22:29)
[2021-02-25] MEDS: Vitamin E 400 UNITS Capsule 800 UNITS PO (10:00)
[2021-02-25] MEDS: Pantoprazole Sodium 20 MG Tablet PO (10:00)
[2021-02-25] MEDS: Aspirin E.C. 81 MG Tablet PO (10:00)
[2021-02-25] MEDS: QUEtiapine 25 MG Tablet 12.5 MG PO (10:00)
[2021-02-25] MEDS: Senna/Docusate Sodium 1 Tablet 2 TABLET PO ×2 (10:01→22:29)
[2021-02-25] MEDS: Polyethylene Glycol 3350 17 GM PACKET PO (10:01)
[2021-02-25] MEDS: Folic Acid 1 MG Tablet 0.5 MG PO (10:01)
[2021-02-25] MEDS: amLODIPine 10 MG Tablet PO (10:03)
[2021-02-25] MEDS: Ascorbic Acid 500 MG Tablet PO (10:03)
[2021-02-25] MEDS: Lisinopril 20 MG Tablet PO (10:03)
[2021-02-25] MEDS: Anastrozole 1 MG TABLET PO (10:03)
[2021-02-25] MEDS: Acetaminophen 325 MG Tablet 650 MG PO (10:05)
[2021-02-25 20:36] VITALS: BP 120/76; PULSE 110; RESP 16; TEMP 36.7; O2SAT 95
[2021-02-25] MEDS: QUEtiapine 25 MG Tablet 37.5 MG PO (22:28)
[2021-02-25] MEDS: Nortriptyline 25 MG Capsule PO (22:29)
[2021-02-26] MEDS: busPIRone 5 MG Tablet PO ×3 (05:36→21:04)
[2021-02-26] MEDS: Arthritis Pain Compound 60 CLICK TUBE TOPICAL ×3 (05:40→21:05)
[2021-02-26 07:16] LABS: Potassium 4.1 mmol/L (3.5-5.1)
[2021-02-26 07:34] VITALS: BP 103/60; PULSE 103; RESP 16; TEMP 36.8; O2SAT 100
--- NOTE | 2021-02-26 08:00 | EKG12_ITS ---
Test Reason : MED CLEARANCE Blood Pressure : / mmHG Vent. Rate : 110 BPM Atrial Rate : 110 BPM P-R Int : 162 ms QRS Dur : 072 ms QT Int : 324 ms P-R-T Axes : 058 001 056 degrees QTc Int : 438 ms Sinus tachycardia Low voltage QRS (Limb Leads) Confirmed by MARNIE TAVERA, LIS ([id number]), material expeditor APURVA CAMEJO ([id number]) on 03/06/2021 8:58:01 AM Referred By: Brooke Albarran Confirmed By:LIS DYE MD
[2021-02-26] MEDS: Anastrozole 1 MG TABLET PO (08:51)
[2021-02-26] MEDS: Aspirin E.C. 81 MG Tablet PO (08:52)
[2021-02-26] MEDS: amLODIPine 10 MG Tablet PO (08:52)
[2021-02-26] MEDS: Pantoprazole Sodium 20 MG Tablet PO (08:52)
[2021-02-26] MEDS: Ascorbic Acid 500 MG Tablet PO (08:53)
[2021-02-26] MEDS: Lisinopril 20 MG Tablet PO (08:53)
[2021-02-26] MEDS: Vitamin E 400 UNITS Capsule 800 UNITS PO (08:53)
[2021-02-26] MEDS: Folic Acid 1 MG Tablet 0.5 MG PO (08:53)
--- NOTE | 2021-02-26 08:54 | PCM.PN.BLA ---
Progress Note Afebrile VSS - HR is increased.......she is in the low 100-110 range. Blood pressure is well controlled, Occasionally mildly decreased but, the MAP is WNL and she denies lightheadedness. Maintaining appropriate oxygen saturation on RA Oral intake is much improved BM's are regular Sleeping well, even with the decrease in the Pamelor Friday. Discussed with nursing - no problems that need addressed. Still having delusions but no other psychotic features. No behavior issues over the weekend. Reviewed the PT/OT/ST notes Medication list reviewed. Has been refusing the Lidocaine patch so will DC. EKG today shows NSR with increased resting HR but, no increase in the QTI....it is WNL. There are nonspecific ST and T wave changes with no ST elevation or significant ST depression. All lab from over the weekend was personally reviewed. K was high on Friday but I suspect the sample was hemolyzed. K today is 4.1. Hemoglobin is up to 14. Sodium is within normal limits off sodium chloride tablets supplementation. The FBS on 02/24 was 222. She has been getting Ensure 4 OZ TID and ensure pudding BID because she was not eating. Eating is much better now so likely do not need as many supplements. Will change the supplements to Glucerna and D/W the palliative medicine physician. Family decided they do not want Judi to go to [facility] and they would like [facility] to [facility]. SW is on it. Judi denies cephalgia, chest pain, shortness of breath, calf pain, nausea, abdominal pain, lightheadedness. Physical Exam Const alert, oriented x3 and no apparent distress Constitutional Narrative: pleasant and talkative. Appropriate. General Appearance: cooperative, comfortable and well kempt Resp clear to auscultation bilaterally Cardio regular rhythm Cardio Narrative: mildly tachycardic......TSH recently normal. GI normal to inspection, nondistended, normoactive bowel sounds, soft to palpation and non-tender GI Narrative: eating well. Has gained a few pounds since she is eating and drinking better Extremity Extremity Narrative: trace ankle edema - better since the dose of the amlodipine was decreased. Skin Rashes: no rashes Psych mental status grossly normal and cooperative Appearance: appropriate and well kempt Attitude: calm and No aggressive Activity / Motor Behavior: appropriate eye contact; Negative for psychomotor agitation, psychomotor slowing or restless Assessment & Plan Assessment/Plan (1) Physical debility: (2) IVH (intraventricular hemorrhage): (3) SAH (subarachnoid hemorrhage): (4) Orthostatic hypotension: (5) Delusional disorder: (6) Insomnia: (7) HTN (hypertension): QUALIFIERS: Hypertension type: essential hypertension Qualified Code(s): I10 - Essential (primary) hypertension PLAN: 1. Her MM are moist today. She is orthostatic. Will discontinue the Amlodipine and continue to monitor the BP's 2. check a BMP in the AM and a T4. TSH was recently normal but the HR is always high when nursing checks. 3. the delusions and the tachycardia could be adverse effects from the Arimidex.........will have her discuss with her oncologist at her next appt. She is clearly less delusional with Seroquel. 4. Recheck the orthostatics in the AM. Visit Charges Inpatient E&M: 62987 Subs Hosp L2
[2021-02-26] MEDS: QUEtiapine 25 MG Tablet 12.5 MG PO (08:58)
--- NOTE | 2021-02-26 09:30 | CASEMGMT ---
Addendum entered by Tammie Beltran 02/27/21 14:50: Spoke with Sade and she is agreeable to [facility]. Requesting DC 03/01. IDT agreeable. [facility] agreeable. Will schedule transport. Plan: [facility], skilled 03/01 Addendum entered by Tammie Beltran 02/27/21 10:38: [facility] not have current bed availability. Updated Sade- she requested referral to [facility]. Referral made. [facility] able to accept pt. Left message with Sade. Will continue to follow. Original Note: Social Work Received voicemail from Sade rosenberg, that family toured [place] this weekend and they do not want pt to admit there. Family requesting referral to [facility]. Referral made - inquired about bed availability, in network with [facility], and private pay cost. Updated physician. Insurance approved with [employer] 03/01. Will continue to follow. SIERRA Villaseñor
[2021-02-26] MEDS: Heparin Injection (Vial) 5,000 UNIT/ML VIAL 5000 UNIT SC ×2 (11:00→21:06)
[2021-02-26 16:10] LABS: Bedside Glucose 152 mg/dL (70-110)
[2021-02-26 20:01] VITALS: BP 113/64; PULSE 67; RESP 14; TEMP 36.7; O2SAT 97
[2021-02-26] MEDS: QUEtiapine 25 MG Tablet 37.5 MG PO (21:03)
[2021-02-26] MEDS: Nortriptyline 25 MG Capsule PO (21:05)
[2021-02-27] MEDS: Arthritis Pain Compound 60 CLICK TUBE TOPICAL ×3 (05:22→21:12)
[2021-02-27] MEDS: busPIRone 5 MG Tablet PO ×3 (05:22→21:14)
[2021-02-27 06:15] LABS: Bedside Glucose 172 mg/dL (70-110)
[2021-02-27 07:30] VITALS: BP 114/70; PULSE 99; RESP 18; TEMP 36.4; O2SAT 97
[2021-02-27] MEDS: Pantoprazole Sodium 20 MG Tablet PO (08:17)
[2021-02-27] MEDS: amLODIPine 5 MG Tablet PO (08:17)
[2021-02-27] MEDS: Anastrozole 1 MG TABLET PO (08:17)
[2021-02-27] MEDS: Folic Acid 1 MG Tablet 0.5 MG PO (08:17)
[2021-02-27] MEDS: Aspirin E.C. 81 MG Tablet PO (08:17)
[2021-02-27] MEDS: Lisinopril 20 MG Tablet PO (08:18)
[2021-02-27] MEDS: Vitamin E 400 UNITS Capsule 800 UNITS PO (08:18)
[2021-02-27] MEDS: QUEtiapine 25 MG Tablet 12.5 MG PO (08:18)
[2021-02-27] MEDS: Ascorbic Acid 500 MG Tablet PO (08:18)
[2021-02-27 10:50] VITALS: BP 104/71; PULSE 120
[2021-02-27] MEDS: Heparin Injection (Vial) 5,000 UNIT/ML VIAL 5000 UNIT SC (11:03)
[2021-02-27 11:09] VITALS: BP 110/64; BP 112/69; BP 90/59; PULSE 109; PULSE 115; PULSE 121
--- NOTE | 2021-02-27 15:34 | PCM.TXEXTCAR ---
Diet 02/26/21 09:48 Diet: Carbohydrate Controlled Food consistency:: Regular Liquid Consistency:: Regular/Thin Type of Dietary Supplement:: Glucerna Shake Is pt able to select menu?: Yes Diet Comments: 240ml Vanilla Glucerna shake w/ breakfast only; Built up utensils Tube Feed: N/A Routine Orders/Code Status Enema Type: Fleetz Enema Frequency: Daily PRN Suppository Type: Dulcolax 10mg Suppository Frequency: Daily PRN O2 Liters per Minute: 1-2 O2 Frequency: PRN Keep PO Greater than or Equal to (%): 90 Code Status: Full Code Wound(s) L WELCH: Wound Type: Abrasion R BICEP AREA: Wound Type: Puncture Top of scalp: Wound Type: Scabbed area Suggestions for Active Care Positions to Avoid: Please get her out of bed and in the chair for meals. Hours to sit in a chair: 1 Times a day to sit in chair: 3 Therapies Weight Bearing: Full weight bearing Physical Therapy: Eval and Treat Occupational Therapy: Eval and Treat Speech Therapy: Eval and Treat Problem/Diagnosis (1) Physical debility: Status: Acute Comment: due to rupture of cerebral aneurysm during a coil embolization (2) S/P coil embolization of cerebral aneurysm: Status: Inactive Comment: Dec 2020. The aneurysm ruptured during the procedure causing SAH, IVH and obstructive hydrocephalus (3) IVH (intraventricular hemorrhage): Status: Acute (4) SAH (subarachnoid hemorrhage): Status: Acute (5) Hyponatremia: Status: Resolved (6) Normochromic normocytic anemia: Status: Resolved (7) Chronic constipation: Status: Resolved Comment: likely due to very high dose Pamelor (8) Delusional disorder: Status: Suspected (9) Anxiety and depression: Status: Chronic Allergies/Procedures Done in Hospital Allergies codeine Adverse Reaction (Verified 05/14/19 12:18) Nausea fluoxetine HCl [From Prozac] Adverse Reaction (Verified 05/14/19 12:18) shivers morphine Adverse Reaction (Verified 05/14/19 12:18) Nausea Type of Care/Length of Stay Estimated LOS: Convalescent Care Less Than 30 days Type of Care Needed: Skilled Rehab Potential: Good Prognosis: Good Additional Orders/Day of Discharge Additional Orders: Judi really likes men, jaspal famous good looking men and she has delusions about these men coming to see her. She has not had any aggressive behavior and is not agitated. She always is cooperative and very pleasant. She should be seen by a Psychiatrist or Psychologist for delusional disorder. H&P will serve as current which was dated: 02/03/21 Day of Discharge: 03/01/21 Dietary and Speech Recommendations Dietitian Recommendations/Changes: Will continue liberalized carbohydrate-controlled w/ consistency as per POWER TOOL REPAIR TECHNICIAN---currently upgraded today to regular solids w/ thin liquids. Will adjust ONS to only 240ml vanilla glucerna shake 1 time per day w/ breakfast meal. Follow Up Care Please follow up with your Primary Care Physician in: following DC from SNF Please Follow Up With: [facility] neurologist Discharge Plan Admission Admit Date/Time: 02/02/21 13:16 Primary Reason for Your Visit: debility due to SAH/IVH during coil embolization of cerebral aneurysm Attending Provider: Brooke Albarran Primary Care Provider: Radha Chang Discharge Orders/Prescriptions Prescriptions: New Arthritis Pain Compound 0 click topical TID Qty: 0 RF: 0 nortriptyline 25 mg Capsule 25 mg PO QHS Qty: 0 RF: 0 buspirone 5 mg Tablet 5 mg PO TID Qty: 0 RF: 0 magnesium hydroxide 400 mg/5 mL Suspension 30 ml PO .PRN X 1 PRN (Reason: Constipation) Qty: 0 RF: 0 bisacodyl 10 mg Suppository 10 mg ID .PRN X 1 PRN (Reason: Constipation) Qty: 0 RF: 0 quetiapine 25 mg Tablet 12.5 mg PO QAM Qty: 0 RF: 0 pantoprazole 20 mg Tablet,Delayed Release (Dr/Ec) 20 mg PO DAILY Qty: 0 RF: 0 quetiapine 25 mg Tablet 50 mg PO QHS Qty: 0 RF: 0 Continued vitamin E 1,000 UNIT capsule 1,000 unit PO DAILY RF: 0 Tumeric 1 tab PO BID RF: 0 meclizine 25 MG tablet,chewable 25 mg PO Q6H PRN PRN (Reason: Vertigo) RF: 0 anastrozole [Arimidex] 1 mg Tablet 1 mg PO DAILY RF: 0 polyethylene glycol 3350 [Miralax] 17 gram Powder In Packet 17 g PO DAILY RF: 0 lisinopril 20 mg Tablet 20 mg PO DAILY RF: 0 folic acid 400 mcg Tablet 0.4 mg PO DAILY RF: 0 ascorbic acid (vitamin C) 500 mg Tablet 500 mg PO DAILY RF: 0 aspirin 81 mg Tablet 81 mg PO DAILY RF: 0 alum-mag hydroxide-simeth 200-200-20 mg/5 mL Suspension 30 ml PO Q6H PRN PRN (Reason: Indigestion) RF: 0 niacin 250 mg Tablet 250 mg PO DAILY RF: 0 Glucosamine Chondroitin PLUS [phone] mg Capsule 1 cap PO DAILY RF: 0 acetaminophen [Tylenol] 325 MG tablet 650 mg PO Q4H PRN PRN (Reason: Pain) RF: 0 Discontinued estradiol 1 MG tablet 1 mg PO DAILY RF: 0 atenolol 25 MG tablet 25 mg PO BID RF: 0 zolpidem 10 MG tablet 10 mg PO QHS PRN (Reason: Insomnia) RF: 0 quetiapine [Seroquel] 25 mg Tablet 25 mg PO QHS RF: 0 alprazolam [Xanax] 0.5 mg Tablet 0.5 mg PO BID PRN (Reason: Anxiety) RF: 0 nortriptyline [Pamelor] 75 mg Capsule 150 mg PO QHS RF: 0 lidocaine [Lidoderm] 5 % Adhesive Patch,Medicated 1 patch topical DAILY RF: 0 heparin (porcine) 5,000 unit/mL Syringe 5,000 unit SUBCUT Q12H RF: 0 sodium chloride 1,000 mg Tablet,Soluble 3,000 mg PO TID RF: 0 Referrals / Follow Up: Radha Chang MD [Primary Care Provider] - Disposition Disposition (needs filled in before D/C Order can be placed): Residential Facility
--- NOTE | 2021-02-27 16:15 | PCM.DC.SUM ---
Providers Date of Admission: 02/02/21 Primary Care Physician: Dr. Radha Chang MD Reason For Visit: SAH/IVH due to ruptured cerebral aneurysm during a Diagnosis Discharge Diagnosis (1) Physical debility: Status: Acute Code(s): R53.81 - Other malaise (2) S/P coil embolization of cerebral aneurysm: Status: Inactive Code(s): Z98.890 - Other specified postprocedural states (3) IVH (intraventricular hemorrhage): Status: Acute Code(s): I61.5 - Nontraumatic intracerebral hemorrhage, intraventricular (4) SAH (subarachnoid hemorrhage): Status: Acute Code(s): I60.9 - Nontraumatic subarachnoid hemorrhage, unspecified (5) Hyponatremia: Status: Resolved Code(s): E87.1 - Hypo-osmolality and hyponatremia (6) Normochromic normocytic anemia: Status: Resolved Code(s): D64.9 - Anemia, unspecified (7) Chronic constipation: Status: Resolved Code(s): K59.09 - Other constipation (8) Delusional disorder: Status: Suspected Code(s): F22 - Delusional disorders (9) Anxiety and depression: Status: Chronic Code(s): F41.9 - Anxiety disorder, unspecified; F32.9 - Major depressive disorder, single episode, unspecified (10) Indwelling Jose catheter present: Status: Resolved Code(s): Z97.8 - Presence of other specified devices (11) Insomnia: Status: Resolved Code(s): G47.00 - Insomnia, unspecified (12) UTI (urinary tract infection) due to urinary indwelling Jose catheter: Status: Resolved Code(s): T83.511A - Infection and inflammatory reaction due to indwelling urethral catheter, initial encounter; N39.0 - Urinary tract infection, site not specified (13) Urine retention: Status: Resolved Code(s): R33.9 - Retention of urine, unspecified (14) Adverse reaction to drug: Status: Suspected Code(s): T50.905A - Adverse effect of unspecified drugs, medicaments and biological substances, initial encounter (15) HTN (hypertension): Status: Chronic Code(s): I10 - Essential (primary) hypertension Qualifiers: Hypertension type: essential hypertension Qualified Code(s): I10 - Essential (primary) hypertension (16) HLD (hyperlipidemia): Status: Chronic Code(s): E78.5 - Hyperlipidemia, unspecified Qualifiers: Hyperlipidemia type: unspecified Qualified Code(s): E78.5 - Hyperlipidemia, unspecified (17) Osteoarthritis: Status: Chronic Code(s): M19.90 - Unspecified osteoarthritis, unspecified site Qualifiers: Osteoarthritis location: unspecified site Osteoarthritis type: unspecified Qualified Code(s): M19.90 - Unspecified osteoarthritis, unspecified site (18) GERD (gastroesophageal reflux disease): Status: Chronic Code(s): K21.9 - Gastro-esophageal reflux disease without esophagitis Qualifiers: Esophagitis presence: esophagitis presence not specified Qualified Code(s): K21.9 - Gastro-esophageal reflux disease without esophagitis (19) Brain aneurysm: Status: Chronic Code(s): I67.1 - Cerebral aneurysm, nonruptured (20) Orthostatic hypotension: Status: Acute Code(s): I95.1 - Orthostatic hypotension (21) Dehydration: Status: Resolved Code(s): E86.0 - Dehydration Plan: DC to [facility] for additional therapy. Medications at Discharge Home Medications Tumeric 1 tab PO BID 07/07/15 vitamin E 1,000 unit PO DAILY 07/07/15 meclizine 25 mg PO Q6H PRN PRN 01/25/19 Glucosamine Chondroitin PLUS 1 cap PO DAILY 02/02/21 acetaminophen [Tylenol] 650 mg PO Q4H PRN PRN 02/02/21 alum-mag hydroxide-simeth 30 ml PO Q6H PRN PRN 02/02/21 anastrozole [Arimidex] 1 mg PO DAILY 02/02/21 ascorbic acid (vitamin C) 500 mg PO DAILY 02/02/21 aspirin 81 mg PO DAILY 02/02/21 folic acid 0.4 mg PO DAILY 02/02/21 niacin 250 mg PO DAILY 02/02/21 polyethylene glycol 3350 [Miralax] 17 g PO DAILY 02/02/21 Arthritis Pain Compound 0 click TOPICAL TID #0 02/27/21 bisacodyl 10 mg MS .PRN X 1 PRN #0 ea 02/27/21 magnesium hydroxide 30 ml PO .PRN X 1 PRN #0 ml 02/27/21 nortriptyline 25 mg PO QHS #0 cap 02/27/21 pantoprazole 20 mg PO DAILY #0 tab 02/27/21 quetiapine 12.5 mg PO QAM #0 tab 02/27/21 quetiapine 50 mg PO QHS #0 tab 02/28/21 buspirone See Rx Instructions .ROUTE .COMPLEX #1 tab 03/01/21 lisinopril 10 mg PO DAILY #0 tab 03/01/21 Hospital Course Operations None Procedures None Summary of Care Provided Minutes Spent on Discharge: 50 Hospital Course: PARRISH KRAUSE, is a 76 YO F with a PMH of multiple recurring cerebral aneurysms (has had coiling in the past), anxiety/depression, DM II, history of narrow angle glaucoma, infiltrating ductal L Breast CA (S/P lumpectomy and now on Arimidex), HTN, OA, obesity and GERD who was scheduled for ELECTIVE cerebral angiogram with web embolization of a KNOWN left SCA aneurysm. The procedure was complicated by extravasation of contrast during the procedure. She was admitted to the neuro ICU for SAH/IVH post embolization. She developed hydrocephalus and had an EVD (external ventricular drain) placed. The drain was removed on 01/30/21. While in the hospital she developed a UTI related to Jose placement for urine retention and was treated with 3 days of Bactrim. She also had hyponatremia and was started on NACL tabs 3 GM TID. She was given a 3% saline bolus and started on a continuous 2% Saline infusion. When the drain was removed she was started on Heparin 5,000 units Q 12H for DVT prophylaxis. Prior to that she had SCD's and RADHA hose. She has been delirious and was placed on Seroquel at while at [facility]. She was seen by PT/OT/ST and transfer to a acute rehab unit was recommended. She arrived at the in acute rehab unit at [facility] on 02/02/21 and will have 3 hours of therapy daily to restore independence/function at or near her level of function prior to the SAH. When Parrish first came to rehab she was very somnolent and was not motivated to do therapy. She was quite confused and oriented only to person. She did not recall what happened to her. she could not follow instructions and short term memory was very poor. She had a Jose catheter for urine retention and she was very constipated. She has been taking a high dose of Pamelor (150mg) for many years and I suspect this was responsible for the drowsiness, confusion, urine retention and constipation. We initiated a taper of the Pamelor and it was tapered by 25 mg weekly. She would not eat or drink and was followed by the director cardiology who ordered supplements to keep her nourished. She gradually became more alert and able to participate with therapy and retain information. Unfortunately she developed a UTI due to Citrobacter youngae and she had increased confusion. CT scan of the brain showed no acute findings. She was treated with 5 days of Levaquin and on Monday 02/19 she seemed to turn a corner. She was alert and oriented X 3 and she was doing much better with recall and naming objects and ambulating. She has delusions. Her family denies that she has had these in the past and they really were not aware of any psychiatric disorders. Parrish admits to having seen a psychiatrist in the past but, she can not tell me her diagnosis. She does not hallucinate and she has had no aggressive behavior or any other sx of psychosis. I suspect she has delusional disorder. The dose of Seroquel at HS was adjusted up and a smaller dose in the AM was ordered. She is now sleeping well and doing very well with therapy. She is feeding her self now and eating and drinking well. She is cooperative and motivated to get better so she can return home at some point. The Jose catheter has been removed and she is no longer retaining urine. Constipation has resolved and she is now only taking Miralax. Parrish's sister Shazia has been living with her and she is afraid she will not be able to care for Parrish. The decision was made by the family to have Parrish get additional therapy in a SNF prior to returning home. Shazia and Parrish have always fought per the family. Parrish gets agitated at times with Shazia because Shazia is always pointing out what parrish does wrong and when Shazia is around Parrish will not eat or drink. Parrish looks forward to seeing Shazia at other times. As the confusion resolved the BP and HR started to come down and adjustments were made in the antihypertensive regimen. On 02/27/21 Parrish complained of lightheadedness and orthostatics were +. Her MM were moist. Amlodipine was discontinued and she was kept on lisinopril 20 mg p.o. daily. She is off NaCl tabs now and the sodium is WNL and stable. The last HGB was WNL. She is a diet controlled diabetic and the HGBA1C was 6.4 on no meds. Parrish has paresthesias in her hands and feet and neither Parrish or her family knows why she has this. It may be due to the Arimidex. Paresthesias is one of the side effects. Depression/anxiety/mood disorders are also possible adverse reactions. As Parrish became more oriented the BP started to come down and we have been decreasing the doses of the antihypertensives because of orthostatic hypotension. She has had tachycardia, some of which is due to orthostasis but, I also think she is anxious. This improved with Buspar and we have been adjusting the dose. Parrish has really improved in the past 10 days. She is ambulating 680 feet with a FWW at SBA without stopping and she is able to turn her head and walk without issue. She can ascend and descend a curb step W/WW@CGA and is also able to a send/descend 5 steps with 2 handrails at contact-guard assist. She is supervision only for eating and grooming. She is standby assist for bathing, supervision for upper body dressing and requires minimal assistance only with lower body dressing. She is contact-guard assist for toileting, toilet transfer. She has improving attention but is still easily distracted and requires redirection. She is able to attend and follow multistep directions with minimal to no cues/repetition. She is currently on a regular texture/thin liquid diet and doing well. Speech therapy estimates that she is 65% better than at admission to the rehab unit. The delusions have decreased with Seroquel. She is pleasant, cooperative and is eating and drinking well without assist. She is alert and oriented X 3. I would like to see Parrish be evaluated by a psychiatrist. She has not shown sx of depression with tapering of the Pamelor from 150 mg daily to 25 mg but she has been more anxious. Parrish was discharged to [facility] on 03/01/21 for additional therapy prior to returning home. Parrish has follow up appts scheduled with Monae Garcia (endovascular Neurology) and Caro Perdomo (hematology/oncology). she will also follow up with Dr. Chang following DC from [facility]. Physical Exam Const alert, oriented x3, no apparent distress, average body habitus and well nourished Constitutional Narrative: She has her make up on today and her hair fixed. She is dressed in street clothes. She is appropriate and pleasant General Appearance: cooperative, comfortable, well kempt and well developed; Negative for in distress, anxious, combative or lethargic HEENT normocephalic and head/scalp atraumatic HEENT Narrative: Mucous membranes are moist and there are no lesions in the mouth. Eyes PERRL, EOMs intact bilaterally, conjunctivae normal and no scleral icterus Eyes Narrative: No visual field cuts. No conjunctival abnormality. No scleral icterus. General Eye: normal appearance of both eyes Neck full ROM, No nuchal rigidity, no lymphadenopathy, supple, thyroid normal and no carotid bruits General: normal visual inspection and trachea midline Lymph Lymphatic: no lymphadenopathy noted Chest Chest: symmetrical chest wall rise Resp normal respiratory effort, normal air movement, no use of accessory muscles and clear to auscultation bilaterally Effort and Inspection: able to speak in complete sentences; Negative for tachypneic, respiratory distress, labored or uses accessory muscles Auscultation: Negative for rales, rhonchi or wheezes Cardio regular rhythm, S1 normal heart sound, S2 normal heart sound, no murmurs, no rub and no gallops Cardio Narrative: HR is in the 90's at rest when I am examining her. The HR increases with activity and with the orthostatic VS's. Lisinopril dose was decreased and we are always encouraging her to increase her fluid intake. Rate: tachycardic GI normal to inspection, nondistended, normoactive bowel sounds, soft to palpation, non-tender and non-distended GI Narrative: Normal bowel sounds, regular bowel movements. Narrative: Denies dysuria and has not had urinary incontinence. She is no longer retaining urine since the Pamelor dose was decreased significantly and the Jose has been out for a few days now. Extremity no clubbing, cyanosis or edema, no calf tenderness and no pedal edema Extremity Narrative: No ankle edema today. It has improved with discontinuation of the Amlodipine. Skin General Skin Exam: no breakdown Rashes: no rashes Neuro oriented x3, CN's II-XII intact bilaterally, moves all extremities, no focal motor deficits and no sensory deficits noted Neuro Narrative: Cognition has improved significantly and she is now able to carry on a conversation without confabulating and she is also able to follow 3 step commands. Speech: speech normal Motor Exam: general weakness Psych mental status grossly normal and cooperative Psych Narrative: No auditory or visual hallucinations. Thought process is much more normal. She is delusional but no other psychotic features present. She is now oriented X 3 and appropriate other than the delusions. No bizarre behavior. Appearance: appropriate and well kempt Attitude: calm and No aggressive Activity / Motor Behavior: appropriate eye contact; Negative for psychomotor agitation, psychomotor slowing or restless Medical Records Data Medical Nutrition Assessment Dietitian: Malnutrition Criteria Met Start: 02/07/21 09:20 Freq: Status: Active Protocol: Document 02/23/21 11:16 RMA (Rec: 02/23/21 11:16 RMA [id number]) Nutrition Malnutrition Evidence of Malnutrition Exists Yes Malnutrition (severe): Acute Illness/Injury Evidenced By Suboptimal Energy Intake ( Severe),Weight Loss (Severe) Intake Problem Inadequate Oral Intake Etiology related to decreased appetite and chewing impairment Signs/Symptoms as evidenced by average intake less than or equal to 50% meals and need for mechanically altered food Status Active Problem Clinical Problem Acute Disease or Injury Related Malnutrition Etiology Severe pro/isha malnutrition in the context of acute illness related to inadequate oral intake Signs/Symptoms as evidenced by 10% wt loss x 3 weeks, intake at meals less 50% and inadequate to meet estimate nutrition needs Status Active Problem Recommendation Dietitian Recommendations/Changes Will continue liberalized carbohydrate-controlled w/ consistency as per [employer]--- currently soft/bite-sized w/ thin liquids. Will continue 120ml ensure enlive (vanilla) TID w/meals and ensure pudding BID w/ lunch and dinner. Liberalize diet to regular if PO remains inadequate and weight continues to decline. Weight / BMI Weight Weight: 147 lb 4.301 oz Body Mass Index (BMI) 28.7 ABG / Lab / Microbiology Data Result Diagrams: 02/24/21 07:55 02/28/21 05:35 Laboratory: Laboratory Results - last 24 hr 02/27/21 05:54: POC Glucose 172 H Microbiology: Microbiology 02/14/21 16:20 Urine, Catheterized Urine Culture - Final Escherichia coli Enterococcus faecalis D/C Instructions Please Follow Up With: [facility] neurologist Meaningful Use Info Meaningful Use Diagnoses (Choose all that apply): Hemorrhagic CVA CVA Therapy Assessed for PT,OT and/or ST?: Yes Ischemic Stroke Antithrombotic order at d/c?: Yes Dx of Atrial fib/flutter?: No Anticoagulant at discharge?: No Reason anticoagulant not ordered: Treatment not Indicated Statins at discharge?: No Reason Statin not ordered: Treatment not Indicated (she was not on a statin when she came to rehab and she will follow up with neurology who will evaulate her for a statin) Primary Dx Acute Ischemic CVA?: No IV tPA ordered during stay?: No Reason IV t-PA not ordered: Treatment not Indicated (she had a hemorrhagic stroke. ) Discharge Plan Admission Admit Date/Time: 02/02/21 13:16 Primary Reason for Your Visit: debility due to SAH/IVH during coil embolization of cerebral aneurysm Attending Provider: Brooke Albarran Primary Care Provider: Radha Chang Discharge Orders/Prescriptions Prescriptions: New Arthritis Pain Compound 0 click topical TID Qty: 0 RF: 0 nortriptyline 25 mg Capsule 25 mg PO QHS Qty: 0 RF: 0 magnesium hydroxide 400 mg/5 mL Suspension 30 ml PO .PRN X 1 PRN (Reason: Constipation) Qty: 0 RF: 0 bisacodyl 10 mg Suppository 10 mg MS .PRN X 1 PRN (Reason: Constipation) Qty: 0 RF: 0 quetiapine 25 mg Tablet 12.5 mg PO QAM Qty: 0 RF: 0 pantoprazole 20 mg Tablet,Delayed Release (Dr/Ec) 20 mg PO DAILY Qty: 0 RF: 0 quetiapine 25 mg Tablet 50 mg PO QHS Qty: 0 RF: 0 buspirone 5 mg Tablet See Rx Instructions .ROUTE .COMPLEX Qty: 1 RF: 0 lisinopril 10 mg Tablet 10 mg PO DAILY Qty: 0 RF: 0 Continued vitamin E 1,000 UNIT capsule 1,000 unit PO DAILY RF: 0 Tumeric 1 tab PO BID RF: 0 meclizine 25 MG tablet,chewable 25 mg PO Q6H PRN PRN (Reason: Vertigo) RF: 0 anastrozole [Arimidex] 1 mg Tablet 1 mg PO DAILY RF: 0 polyethylene glycol 3350 [Miralax] 17 gram Powder In Packet 17 g PO DAILY RF: 0 folic acid 400 mcg Tablet 0.4 mg PO DAILY RF: 0 ascorbic acid (vitamin C) 500 mg Tablet 500 mg PO DAILY RF: 0 aspirin 81 mg Tablet 81 mg PO DAILY RF: 0 alum-mag hydroxide-simeth 200-200-20 mg/5 mL Suspension 30 ml PO Q6H PRN PRN (Reason: Indigestion) RF: 0 niacin 250 mg Tablet 250 mg PO DAILY RF: 0 Glucosamine Chondroitin PLUS [id number] mg Capsule 1 cap PO DAILY RF: 0 acetaminophen [Tylenol] 325 MG tablet 650 mg PO Q4H PRN PRN (Reason: Pain) RF: 0 Discontinued estradiol 1 MG tablet 1 mg PO DAILY RF: 0 atenolol 25 MG tablet 25 mg PO BID RF: 0 zolpidem 10 MG tablet 10 mg PO QHS PRN (Reason: Insomnia) RF: 0 quetiapine [Seroquel] 25 mg Tablet 25 mg PO QHS RF: 0 lisinopril 20 mg Tablet 20 mg PO DAILY RF: 0 alprazolam [Xanax] 0.5 mg Tablet 0.5 mg PO BID PRN (Reason: Anxiety) RF: 0 nortriptyline [Pamelor] 75 mg Capsule 150 mg PO QHS RF: 0 lidocaine [Lidoderm] 5 % Adhesive Patch,Medicated 1 patch topical DAILY RF: 0 heparin (porcine) 5,000 unit/mL Syringe 5,000 unit SUBCUT Q12H RF: 0 sodium chloride 1,000 mg Tablet,Soluble 3,000 mg PO TID RF: 0 Referrals / Follow Up: Radha Chang MD [Primary Care Provider] - Disposition Disposition (needs filled in before D/C Order can be placed): Alf Facility Charges/Coding Visit Charges Inpatient E&M: 27166 Disch Hosp
[2021-02-27 17:05] LABS: Bedside Glucose 190 mg/dL (70-110)
[2021-02-27] MEDS: Nortriptyline 25 MG Capsule PO (21:13)
[2021-02-27] MEDS: QUEtiapine 25 MG Tablet 37.5 MG PO (21:13)
[2021-02-27 21:40] VITALS: BP 106/75; PULSE 108; RESP 18; TEMP 35.9; O2SAT 97
[2021-02-28] MEDS: Arthritis Pain Compound 60 CLICK TUBE TOPICAL ×3 (05:19→22:12)
[2021-02-28] MEDS: busPIRone 5 MG Tablet PO ×3 (05:19→22:15)
[2021-02-28 05:41] LABS: Bedside Glucose 162 mg/dL (70-110)
[2021-02-28 06:02] LABS: Anion Gap 10 (5-15); BUN 17 mg/dL (7-18); BUN/Creat Ratio 18.4 RATIO (10-20); Calcium,Total 9.5 mg/dL (8.5-10.1); Chloride 104 mmol/L (98-107); Creatinine, Serum 0.92 mg/dL (0.55-1.02); EST Glomerular Filtration Rate 63 mL/min (>60); Est Glom Filt Rate - Afr Amer 76 mL/min (>60); Estimated Creatinine Clearance 43.71 ml/min; Glucose 175 mg/dL (74-106); Potassium 4.7 mmol/L (3.5-5.1); Sodium Level 137 mmol/L (136-145)
[2021-02-28 07:28] VITALS: BP 121/72; PULSE 107; RESP 16; TEMP 36.5; O2SAT 94
[2021-02-28] MEDS: Vitamin E 400 UNITS Capsule 800 UNITS PO (08:39)
[2021-02-28] MEDS: Folic Acid 1 MG Tablet 0.5 MG PO (08:40)
[2021-02-28] MEDS: Pantoprazole Sodium 20 MG Tablet PO (08:40)
[2021-02-28] MEDS: Ascorbic Acid 500 MG Tablet PO (08:40)
[2021-02-28] MEDS: Anastrozole 1 MG TABLET PO (08:40)
[2021-02-28] MEDS: Aspirin E.C. 81 MG Tablet PO (08:40)
[2021-02-28] MEDS: QUEtiapine 25 MG Tablet 12.5 MG PO (08:40)
[2021-02-28] MEDS: Senna/Docusate Sodium 1 Tablet 2 TABLET PO ×2 (08:41→22:15)
[2021-02-28] MEDS: Lisinopril 20 MG Tablet PO (08:41)
[2021-02-28] MEDS: Acetaminophen 325 MG Tablet 650 MG PO (08:47)
--- NOTE | 2021-02-28 09:45 | PN_ITS ---
Progress Note Afebrile Blood pressure today is 121/72. The pulse this morning was 107. She is maintaining appropriate oxygen saturation on room air. Having regular bowel movements with MiraLAX. Occasional urinary incontinence. the FBS is 175 today. She is on a carb controlled diet and no medication. she tells me that she could be sleeping better but, she admits she is sleeping better than before. She denies dysuria, chest pain, nausea/vomiting/abdominal pain, lightheadedness. she feels a little SOB at times, usually when she gets up to go to the BR at night. Denies KIDD. Physical Exam Const alert, oriented x3 and no apparent distress Constitutional Narrative: She has her make up on today and her hair fixed. She is dressed in street clothes. She is appropriate and pleasant HEENT HEENT Narrative: Mucous membranes are moist. No lesions in the mouth or on the buccal mucosa. Coat is not coated Eyes EOMs intact bilaterally, conjunctivae normal and no scleral icterus Neck no lymphadenopathy and no carotid bruits Resp normal respiratory effort, normal air movement, no use of accessory muscles and clear to auscultation bilaterally Effort and Inspection: able to speak in complete sentences Cardio regular rhythm Cardio Narrative: HR is in the 90's at rest when I am examining her. GI normal to inspection, nondistended, normoactive bowel sounds, soft to palpation and non-tender GI Narrative: Normal bowel sounds, regular bowel movements. Extremity no calf tenderness and no pedal edema Skin General Skin Exam: no breakdown Rashes: no rashes Assessment & Plan Assessment/Plan (1) Orthostatic hypotension: (2) Delusional disorder: (3) Insomnia: (4) Physical debility: (5) IVH (intraventricular hemorrhage): (6) SAH (subarachnoid hemorrhage): (7) Anxiety and depression: (8) Diabetes mellitus type 2 in nonobese: PLAN: 1. Continue carb controlled diet. Start Glucophage 500 mg p.o. twice daily and continue to monitor blood sugars twice daily. 2. Hyponatremia has resolved. She has no longer on sodium chloride tablets. Anemia has resolved. TSH is normal but in light of the increased heart rate will check a T4. If the T4 is negative consider increasing the BuSpar to control anxiety. Will check a heart rate before and after ambulation and repeat orthostatics today and in the a.m. 3. Plan discharge to [facility] tomorrow. Will recommend that she is seen by psychiatry at [facility]. Visit Charges Inpatient E&M: 76614 Subs Hosp L2
[2021-02-28 10:10] LABS: T4 Free Direct 1.01 ng/dL (0.76-1.46)
[2021-02-28 11:05] VITALS: BP 106/61; BP 110/65; BP 112/83; PULSE 112; PULSE 113; PULSE 115
[2021-02-28 16:16] LABS: Bedside Glucose 142 mg/dL (70-110)
[2021-02-28] MEDS: metFORMIN HCl 500 MG Tablet PO (16:51)
[2021-02-28 19:30] VITALS: BP 103/68; PULSE 106; RESP 17; TEMP 36.3; O2SAT 98
[2021-02-28 22:15] VITALS: PULSE 106
[2021-02-28] MEDS: Nortriptyline 25 MG Capsule PO (22:15)
[2021-02-28] MEDS: QUEtiapine 25 MG Tablet 50 MG PO (22:15)
[2021-02-28 23:45] LABS: Bedside Glucose 131 mg/dL (70-110)
[2021-03-01] MEDS: Acetaminophen 325 MG Tablet 650 MG PO (04:08)
[2021-03-01 05:02] VITALS: BP 103/75; BP 116/72; BP 95/52; PULSE 105; PULSE 116
[2021-03-01] MEDS: busPIRone 5 MG Tablet PO (05:10)
[2021-03-01] MEDS: Arthritis Pain Compound 60 CLICK TUBE TOPICAL (05:10)
[2021-03-01 06:20] LABS: Bedside Glucose 160 mg/dL (70-110)
[2021-03-01 07:39] VITALS: BP 103/75; PULSE 116; RESP 18; TEMP 36.2; O2SAT 99
[2021-03-01] MEDS: metFORMIN HCl 500 MG Tablet PO (08:08)
[2021-03-01] MEDS: Ascorbic Acid 500 MG Tablet PO (08:09)
[2021-03-01] MEDS: Pantoprazole Sodium 20 MG Tablet PO (08:09)
[2021-03-01] MEDS: Lisinopril 20 MG Tablet PO (08:09)
[2021-03-01] MEDS: Anastrozole 1 MG TABLET PO (08:09)
[2021-03-01] MEDS: Folic Acid 1 MG Tablet 0.5 MG PO (08:09)
[2021-03-01] MEDS: Senna/Docusate Sodium 1 Tablet 2 TABLET PO (08:09)
[2021-03-01] MEDS: Vitamin E 400 UNITS Capsule 800 UNITS PO (08:10)
[2021-03-01] MEDS: Aspirin E.C. 81 MG Tablet PO (08:16)
[2021-03-01] MEDS: QUEtiapine 25 MG Tablet 12.5 MG PO (09:07)
[2021-03-01 13:16] VITALS: BP 103/75; PULSE 116; RESP 18; TEMP 36.2; O2SAT 99
--- NOTE | 2021-03-01 13:18 | NURSING ---
Discharged to [facility]. Report called to [facility]
== END 2021-03-01 13:19 | DRG 64 ==
PROVIDERS: Admitting Provider Internal Medicine; PCP Internal Medicine; Referring Provider Internal Medicine; Visit Provider Internal Medicine
DX: I60.7 Nontraumatic subarachnoid hemorrhage from unspecified intracranial artery (principal); G92.8 Other toxic encephalopathy; T83.511A Infection and inflammatory reaction due to indwelling urethral catheter, initial encounter; N39.0 Urinary tract infection, site not specified; E87.1 Hypo-osmolality and hyponatremia; G91.1 Obstructive hydrocephalus; I61.5 Nontraumatic intracerebral hemorrhage, intraventricular; Z23 Encounter for immunization; E11.9 Type 2 diabetes mellitus without complications; E78.5 Hyperlipidemia, unspecified; G30.9 Alzheimer's disease, unspecified; F02.80 Dementia in other diseases classified elsewhere, unspecified severity, without behavioral disturbance, psychotic disturbance, mood disturbance, and anxiety; K59.09 Other constipation; B95.2 Enterococcus as the cause of diseases classified elsewhere; I95.1 Orthostatic hypotension; T45.1X5A Adverse effect of antineoplastic and immunosuppressive drugs, initial encounter; B96.20 Unspecified Escherichia coli [E. coli] as the cause of diseases classified elsewhere; Y84.6 Urinary catheterization as the cause of abnormal reaction of the patient, or of later complication, without mention of misadventure at the time of the procedure; F32.A Depression, unspecified; F41.9 Anxiety disorder, unspecified; K21.9 Gastro-esophageal reflux disease without esophagitis; I10 Essential (primary) hypertension; M19.90 Unspecified osteoarthritis, unspecified site; Z79.899 Other long term (current) drug therapy; Z79.82 Long term (current) use of aspirin
CPT/HCPCS: 0001A; 36415; 70450; 73130; 80048; 80053; 80335; 81001; 82962; 83036; 83735; 84100; 84132; 84439; 84443; 85014; 85018; 85025; 85027; 85652; 86140; 86431; 87077; 87086; 87088; 87186; 87426; 91300; 92507; 92523; 92526; 92610; 93005; 95819; 97110; 97112; 97116; 97129; 97130; 97162; 97166; 97530; 97535; 97802; 97803; J2997; J7030; J7050; A4216; J0295

== ENCOUNTER → 2021-03-02 05:00 | Outpatient (REF) | payer MEDICARE, SELFPAY ==
[2021-03-02 07:22] LABS: Hematocrit 41.9 % (37-47); Hemoglobin 13.8 g/dL (12.0-15.0); Mean Corp Hgb Conc 32.9 g/dL (32-36); Mean Corpuscular Hgb 31.1 pg (27.0-32.0); Mean Corpuscular Volume 94.4 fL (81-99); Mean Platelet Vol. 8.9 fl (6.2-12.0); Platelet Count 449 K/mm3 (150-450); RBC Distribution Width SD 44.8 fl (35.1-43.9); Red Blood Count 4.44 M/mm3 (4.2-5.4); White Blood Count 7.2 K/mm3 (4.4-11.0)
[2021-03-02 07:40] LABS: Anion Gap 6 (5-15); BUN 20 mg/dL (7-18); BUN/Creat Ratio 21.2 RATIO (10-20); Calcium,Total 9.5 mg/dL (8.5-10.1); Chloride 104 mmol/L (98-107); Creatinine, Serum 0.94 mg/dL (0.55-1.02); EST Glomerular Filtration Rate 61 mL/min (>60); Est Glom Filt Rate - Afr Amer 74 mL/min (>60); Glucose 151 mg/dL (74-106); Potassium 4.9 mmol/L (3.5-5.1); Sodium Level 135 mmol/L (136-145)
[2021-03-02 08:11] LABS: Hemoglobin A1c 6.3 % (3.8-5.6)
== END ==
LOC: OLS.SW1020 05:00
PROVIDERS: PCP Internal Medicine; Visit Provider Family Medicine
DX: D64.9 Anemia, unspecified (principal); E11.9 Type 2 diabetes mellitus without complications; I10 Essential (primary) hypertension; E78.5 Hyperlipidemia, unspecified; I48.91 Unspecified atrial fibrillation; Z79.899 Other long term (current) drug therapy
CPT/HCPCS: 36415; 80048; 83036; 85027; 85610

== ENCOUNTER → 2021-03-05 05:00 | Outpatient (REF) | payer MEDICARE, SELFPAY ==
[2021-03-05 07:26] LABS: Prothrombin Time (Protime)PT. 12.7 SECONDS (11.7-14.9)
[2021-03-05 07:27] LABS: Hematocrit 39.6 % (37-47); Mean Corp Hgb Conc 32.8 g/dL (32-36); Mean Corpuscular Hgb 31.4 pg (27.0-32.0); Mean Corpuscular Volume 95.7 fL (81-99); Mean Platelet Vol. 9.1 fl (6.2-12.0); Platelet Count 337 K/mm3 (150-450); RBC Distribution Width SD 46.2 fl (35.1-43.9); Red Blood Count 4.14 M/mm3 (4.2-5.4)
[2021-03-05 07:46] LABS: Anion Gap 7 (5-15); BUN 19 mg/dL (7-18); BUN/Creat Ratio 23.1 RATIO (10-20); Calcium,Total 9.1 mg/dL (8.5-10.1); Chloride 106 mmol/L (98-107); Creatinine, Serum 0.82 mg/dL (0.55-1.02); EST Glomerular Filtration Rate 72 mL/min (>60); Est Glom Filt Rate - Afr Amer 87 mL/min (>60); Glucose 157 mg/dL (74-106); Potassium 4.2 mmol/L (3.5-5.1); Sodium Level 138 mmol/L (136-145); Thyroid Stim Hormone (TSH) 1.33 uIU/mL (0.358-3.74)
[2021-03-05 09:01] LABS: Vitamin B12 609 pg/mL (211-911); Vitamin D,25 Hydroxy 34.5 ng/mL
[2021-03-05 09:53] LABS: Hemoglobin A1c 6.2 % (3.8-5.6)
== END ==
LOC: OLS.SW1020 05:00
PROVIDERS: PCP Internal Medicine; Visit Provider Internal Medicine
DX: I67.1 Cerebral aneurysm, nonruptured (principal); I10 Essential (primary) hypertension; E78.5 Hyperlipidemia, unspecified; E55.9 Vitamin D deficiency, unspecified; E11.9 Type 2 diabetes mellitus without complications; Z79.01 Long term (current) use of anticoagulants
CPT/HCPCS: 36415; 80048; 82306; 82607; 83036; 84443; 85027; 85610

== ENCOUNTER 2021-08-29 18:29 | Observation (INO) | payer MEDICARE, SELFPAY ==
[2021-08-29 18:29] VITALS: BP 173/81; PULSE 95; RESP 16; TEMP 36.6; O2SAT 100; BMI 26.1
[2021-08-29 18:33] VITALS: BP 173/81; PULSE 95; RESP 18; TEMP 36.6; O2SAT 100
--- NOTE | 2021-08-29 18:37 | CT_ITS ---
STUDY: CT ABDOMEN AND PELVIS WITHOUT CONTRAST ENHANCEMENT 1915 HOURS ON 08/29/2021 REASON FOR EXAM: 76-year-old female with flank pain. Evaluate for kidney stone. RADIATION DOSAGE (If Supplied By Facility): CTDIvol = ( 6.22 ) mGy, DLP = ( 279.59 ) mGycm TECHNIQUE: Transaxial images were obtained from the dome of the diaphragm to the symphysis pubis without oral contrast, and without intravenous contrast. Sagittal and coronal images were reconstructed. COMPARISON: None. FINDINGS: The visualized lung bases are unremarkable. The visualized portions of the heart are within normal limits. Normal liver. Normal gallbladder and extrahepatic biliary system; no cholecystitis or cholelithiasis.. Normal spleen. Normal pancreas; no pancreatitis or pancreatic mass lesions.. Normal bilateral adrenal glands. Normal right kidney without obstructive uropathy. There is a normal size left kidney with moderate hydronephrosis and a dilated proximal right ureter to a 3 mm in diameter calculus lying 2.3 cm distal to the left pelvoureteral junction. There is no evidence of other calcifications are calculi in either kidneys. There is no postrenal cystic or solid masses. Normal visualized stomach. Normal small intestine. Normal colon. No diverticulitis, colitis, intestinal obstruction. Mild constipation. The appendix is visualized and appears normal. Normal abdominal aorta. Normal inferior vena cava. Normal retroperitoneum. Normal partially empty urinary bladder. Normal abdominal wall. Normal osseous structures. CT/Abdomen/Pelvis without Cont IMPRESSION: 1. Presence of a 3 mm in diameter calculus in the proximal left ureter lying 2.3 cm distal to the left pelviureteral junction with a moderate left hydronephrosis. 2. Normal right kidney. 3. No evidence of other calcifications or calculi or cystic or solid mass lesions in either kidney. 4. Normal partially empty bladder. 5. No cholecystitis or pancreatitis. 6. No appendicitis, diverticulitis, colitis, or intestinal obstruction. 7. Mild constipation. Electronically Signed: Brando Pedroza MD at 19:48 EDT ,
[2021-08-29 18:57] LABS: Mucous, Urine 0 SEEN /hpf (<or=2+); Squamous Epithelial Cells - UA 0 SEEN /hpf (5-10); White Blood Cells 0 SEEN /hpf (0-5)
[2021-08-29 18:58] LABS: Color, Urine Yellow (Yellow); Glucose, Dipstick Normal (Normal); Ketone-Dipstick Negative (Negative); Leukocyte Esterase-Dipstick 25 /ul (Negative); Nitrite-Dipstick Negative (Negative); Occult Blood-Urine 250 /ul (Negative); Protein-Dipstick Negative (Negative); Specific Gravity, Urine 1.015 (1.002-1.030); Urine Bilirubin Dipstick Negative (Negative); Urine Clarity Cloudy (Clear); Urine Urobilinogen Normal (Normal)
[2021-08-29 19:04] LABS: Red Blood Cells-Urine 10-25 SEEN /hpf (0-5)
[2021-08-29] MEDS: Ondansetron 4 MG/2 ML Vial IV ×2 (19:04→21:45)
[2021-08-29] MEDS: HYDROmorphone 0.5 MG/0.5 ML SYRINGE IV ×2 (19:04→20:39)
[2021-08-29 19:05] LABS: Bacteria 1+ /hpf (None Seen)
[2021-08-29 19:14] LABS: Absolute Neutrophil Count 4.8 X10^3/uL (2.0-7.7); Basophil# 0.02 X10^3/uL; Basophil% 0.3 % (0-1); Eosinophils% 1.5 % (0-5); Hematocrit 39.8 % (37-47); Hemoglobin 13.9 g/dL (12.0-15.0); Lymphocyte % 16.6 % (19-41); Mean Corp Hgb Conc 34.9 g/dL (32-36); Mean Corpuscular Hgb 30.5 pg (27.0-32.0); Mean Corpuscular Volume 87.5 fL (81-99); Mean Platelet Vol. 8.5 fl (6.2-12.0); Monocyte# 0.57 X10^3/uL; Monocyte% 8.6 % (0-10); NRBC Flagged by Analyzer 0 % (0-5); Neutrophil # 4.83 X10^3/uL (2.7-7.7); Neutrophil % 72.7 % (47-70); Platelet Count 324 K/mm3 (150-450); RBC Distribution Width CV 12.7 % (11.6-14.6); RBC Distribution Width SD 40.8 fl (35.1-43.9); Red Blood Count 4.55 M/mm3 (4.2-5.4); White Blood Count 6.6 K/mm3 (4.4-11.0)
--- NOTE | 2021-08-29 19:29 | EX.ED.DYSGE1 ---
HPI History of Present Illness Chief Complaint: Flank Pain Detail of Chief Complaint: Abrupt left flank pain. Informant: patient Onset/Context/Timing Onset: Hours Context: Sudden Onset Timing: Continuous and Waxes and wanes Quality: Colicky pain Location: Left flank Current Severity: Moderate Maximum Severity: Severe Worsened by: Nothing Relieved by: Better if upright Associated Symptoms Associated Symptoms: Nausea Narrative Narrative: Patient is a 76-year-old woman with history of arthritis, vertigo and orthostatic hypotension who presents with abrupt onset of left flank pain associated with nausea. She denies history of renal ureterolithiasis. She denies dysuria, frequency, urgency or hematuria. She denies history of diverticulosis or diverticulitis. She denies shortness of breath. She denies pleuritic pain. She denies history of VTE. She has no risk factors for VTE. She denies leg pain, swelling discoloration. She denies history of trauma. She has not noted a rash. Prior similar symptoms: No Recent Illness/Hospitalization: No PFSH PFSH Medical History Anxiety and depression Brain aneurysm Brain aneurysm Diabetes mellitus type 2 in nonobese GERD (gastroesophageal reflux disease) Hammer toe of right foot HLD (hyperlipidemia) HTN (hypertension) HTN (hypertension) Hyponatremia Infiltrating ductal carcinoma of left breast IVH (intraventricular hemorrhage) Normochromic normocytic anemia Obstructive hydrocephalus Osteoarthritis Posterior tibial tendinitis of right lower extremity SAH (subarachnoid hemorrhage) Tibialis posterior tendinopathy Walking difficulty due to ankle and foot Home Medications Tumeric 1 tab PO BID 07/07/15 [History Last Taken 05/26/18] vitamin E 1,000 unit PO DAILY 07/07/15 [History Last Taken 05/26/18] meclizine 25 mg PO Q6H PRN PRN 01/25/19 [History Last Taken Unknown] Glucosamine Chondroitin PLUS 1 cap PO DAILY 02/02/21 [History Last Taken Unknown] acetaminophen [Tylenol] 650 mg PO Q4H PRN PRN 02/02/21 [History Last Taken Unknown] anastrozole [Arimidex] 1 mg PO DAILY 02/02/21 [History Last Taken Unknown] ascorbic acid (vitamin C) 500 mg PO DAILY 02/02/21 [History Last Taken Unknown] aspirin 81 mg PO DAILY 02/02/21 [History Last Taken Unknown] folic acid 0.4 mg PO DAILY 02/02/21 [History Last Taken Unknown] niacin 250 mg PO DAILY 02/02/21 [History Last Taken Unknown] Arthritis Pain Compound 0 click TOPICAL TID #0 02/27/21 [Rx Last Taken Unknown] bisacodyl 10 mg DE .PRN X 1 PRN #0 ea 02/27/21 [Rx Last Taken Unknown] magnesium hydroxide 30 ml PO .PRN X 1 PRN #0 ml 02/27/21 [Rx Last Taken Unknown] lisinopril 10 mg PO DAILY #0 tab 03/01/21 [Rx Last Taken Unknown] Allergy/AdvReac Type Severity Reaction Status Date / Time codeine AdvReac Nausea Verified 05/14/19 12:18 fluoxetine HCl [From Prozac] AdvReac shivers Verified 05/14/19 12:18 morphine AdvReac Nausea Verified 05/14/19 12:18 Family History Mother Breast cancer Hypertension Alzheimers disease Aunt Breast cancer Father CAD (coronary artery disease) Sister Alzheimers disease Other Bleeding disorder Surgical History Cataract extraction status H/O laser iridotomy History of hysterectomy History of total knee arthroplasty Hx of craniotomy S/P breast lumpectomy S/P coil embolization of cerebral aneurysm S/P coil embolization of cerebral aneurysm Social History (Updated 08/29/21 @ 19:[address] Olu Larson MD) household members: none Smoking Status: Never smoker substance use type: does not use ROS ROS ED Constitutional Constitutional ED: Denies chills, fever(s), subjective, sweats or weight loss Eyes Eyes: Denies blurry vision, change in vision or diplopia ENT ENT ED: Denies ear pain or rhinorrhea Cardiovascular Cardiovascular: Denies chest pain or palpitations Respiratory/Chest Respiratory/Chest: Denies cough, dyspnea or dyspnea on exertion Gastrointestinal Gastrointestinal: Reports abdominal pain and nausea; Denies constipation, diarrhea, melena or vomiting Genitourinary Genitourinary ED: Denies dysuria, hematuria or urinary frequency Musculoskeletal Musculoskeletal: Reports back pain; Denies arthralgias, myalgias or neck pain Integumentary Denies rash Neurologic Neurologic: Denies paresthesias or weakness EXAM Physical Exam Const Vital Signs: 08/29/21 18:29 08/29/21 18:33 Temperature 97.9 F 97.9 F Temperature Source Oral Oral Pulse Rate 95 95 Respiratory Rate 16 18 Blood Pressure 173/81 H 173/81 H Blood Pressure Mean 111 111 Pulse Ox 100 100 Oxygen Delivery Method Room Air Room Air Positive well nourished and well developed General Appearance ED: well developed and other Patient appears uncomfortable and cannot find a position of comfort. ; Negative for cyanotic, diaphoretic, NAD or pallor HEENT Reports TM's clear and moist mucous membranes Negative for trauma or tenderness Tympanic Membrane ED: Yes TM's clear Eyes PERRL and EOMs intact bilaterally General Eye ED: Negative for pale conjunctiva or scleral icterus Neck no lymphadenopathy, supple and no JVD Chest Wall inspection of chest normal and palpation of chest normal Resp normal respiratory effort and clear to auscultation bilaterally Cardio regular rate, regular rhythm, S1 normal heart sound, S2 normal heart sound and no murmurs GI normal to inspection, nondistended, normoactive bowel sounds, non-tender and non-distended Palpation: soft Back/Spine General Back: CVA tenderness left Cervical Spine: Negative for cervical spine tenderness Thoracic Spine / Upper Back: Negative for thoracic spinal tenderness or paraspinal muscle tenderness Extremity normal to inspection General Extremety ED: Negative for edema or tenderness General Extremity: Negative for edema Neuro oriented x3, CN's II-XII intact bilaterally and no sensory deficits noted Sensorium / Orientation: alert Motor Exam: strength 5/5 throughout Psych mental status grossly normal Skin no rashes or lesions noted and no wounds General Skin Exam: Negative for elasticity normal, jaundice or pallor MDM MDM MDM Narrative Medical decision making narrative: Patient presents with abrupt onset of left flank pain and mild CVA tenderness need to rule out pyelonephritis versus obstructing ureteral stone. CT was ordered as well as appropriate blood work to assess renal function, white count and urine to assess for infection. Patient was reassessed at 2030. She is grimacing in pain again. Additional dose of Dilaudid was ordered. We will contact Dr. Carson for admission for obstructing stone with bacteria. Her creatinine is slightly elevated compared to baseline with a GFR of 54. Lab Data Attestation: I reviewed the patient's lab results. Lab results narrative: CBC is unremarkable. Urine reveals hematuria and bacteria without pyuria. Will send urine culture and patient received a dose of Rocephin in the emergency department since she has no allergy to penicillin. Labs: Laboratory Results - last 24 hr 08/29/21 08/29/21 08/29/21 18:51 19:05 19:05 WBC 6.6 RBC 4.55 Hgb 13.9 Hct 39.8 MCV 87.5 MCH 30.5 MCHC 34.9 RDW Std Deviation 40.8 RDW Coeff of Meño 12.7 Plt Count 324 MPV 8.5 Immature Gran % (Auto) 0.300 Neut % (Auto) 72.7 H Lymph % (Auto) 16.6 L [place] % (Auto) 8.6 Eos % (Auto) 1.5 Baso % (Auto) 0.3 Absolute Neuts (auto) 4.8 Absolute Lymphs (auto) 1.10 Nucleated RBC % 0 Sodium 138 Potassium 4.8 Chloride 105 Carbon Dioxide 27.0 Anion Gap 6 BUN 16 Creatinine 1.05 H Estim Creat Clear Calc 38.29 Est GFR (MDRD) Af Amer 66 Est GFR (MDRD) Non-Af 54 L BUN/Creatinine Ratio 15.2 Glucose 145 H Calcium 9.8 Urine Color Yellow Urine Clarity Cloudy Urine pH 8.0 Ur Specific [place] 1.015 Urine Protein Negative Urine Glucose (UA) Normal Urine Ketones Negative Urine Occult Blood 250 H Urine Nitrite Negative Urine Bilirubin Negative Urine Urobilinogen Normal Ur Leukocyte Esterase 25 H Urine RBC 10-25 SEEN Urine WBC 0 SEEN Ur Squamous Epith Cells 0 SEEN Urine Bacteria 1+ Urine Mucus 0 SEEN Radiography Diagnostic Testing: Clinical Impression(s) from Imaging Studies Abdomen/Pelvis CT 08/29/21 18:37 IMPRESSION: 1. Presence of a 3 mm in diameter calculus in the proximal left ureter lying 2.3 cm distal to the left pelviureteral junction with a moderate left hydronephrosis. 2. Normal right kidney. 3. No evidence of other calcifications or calculi or cystic or solid mass lesions in either kidney. 4. Normal partially empty bladder. 5. No cholecystitis or pancreatitis. 6. No appendicitis, diverticulitis, colitis, or intestinal obstruction. 7. Mild constipation. Electronically Signed: Brando Pedroza MD at 19:48 EDT , CT reveals a proximal left ureteral stone with hydroureter hydronephrosis. Awaiting formal read by radiologist Discharge Plan Dx/Rx/DC Orders Clinical Impression: Hydronephrosis with urinary obstruction due to ureteral calculus, Creatinine elevation, Bacteria in urine Disposition Disposition: Acute Care Hospital [facility]
[2021-08-29] MEDS: 0.9% Normal Saline 1,000 ML 250 ML IV ×2 (19:44→23:39)
[2021-08-29] MEDS: Ceftriaxone 1 GM/50 ML BAG IV (19:58)
[2021-08-29 20:03] LABS: Anion Gap 6 (5-15); BUN 16 mg/dL (7-18); BUN/Creat Ratio 15.2 RATIO (10-20); Calcium,Total 9.8 mg/dL (8.5-10.1); Chloride 105 mmol/L (98-107); Creatinine, Serum 1.05 mg/dL (0.55-1.02); EST Glomerular Filtration Rate 54 mL/min (>60); Est Glom Filt Rate - Afr Amer 66 mL/min (>60); Estimated Creatinine Clearance 38.29 ml/min; Glucose 145 mg/dL (74-106); Potassium 4.8 mmol/L (3.5-5.1); Sodium Level 138 mmol/L (136-145)
[2021-08-29] MEDS: Metoclopramide 10 MG/2 ML Vial 5 MG IV (22:22)
[2021-08-29 22:26] VITALS: BP 168/72; PULSE 84; RESP 18; TEMP 36.4; O2SAT 100
[2021-08-29 22:31] VITALS: BMI 24.6
[2021-08-29 22:59] VITALS: BP 153/78; PULSE 77; RESP 16; TEMP 36.3; O2SAT 100
[2021-08-30] MEDS: 0.9% Normal Saline 1,000 ML 100 ML IV ×3 (00:14→18:02)
[2021-08-30] MEDS: proCHLORPERazine 10 MG/2 ML Vial IV (00:24)
[2021-08-30] MEDS: Ketorolac 15 MG/ML Vial IV (04:20)
[2021-08-30 04:23] VITALS: BP 155/74; PULSE 88; RESP 20; TEMP 36.3; O2SAT 98
--- NOTE | 2021-08-30 05:00 | RAD_ITS ---
EXAM: XR ABDOMEN, 1 VIEW CLINICAL INDICATION: kidney stone TECHNIQUE: Frontal supine view of the abdomen/pelvis. This report was created using [employer] report generation technology. COMPARISON: None. FINDINGS: LOWER THORAX: No acute pathology. GASTROINTESTINAL TRACT: Unremarkable. Non-obstructive. No bowel or stomach distention. ORGANS: No calcifications overlying the renal shadows. No organomegaly. BONES/JOINTS: No acute pathology. SOFT TISSUES: No acute pathology. VASCULATURE: Calcifications in the pelvis likely represent phleboliths. RAD/Abdomen Single View IMPRESSION: 1. Calcifications in the pelvis likely represent phleboliths. 2. No calcifications overlying the renal shadows. Electronically Signed: Mundo Cortez MD at 5:01 EDT ,
--- NOTE | 2021-08-30 07:34 | PCM.HP.STD ---
HPI - General General Date of Admission: 08/29/21 HPI Narrative QUINCY KRAUSE, is a 76 F who presents with a small left mid ureteral calculi severe pain has not passed stone, can see stone on KUB this am plan for lithotripsy tomorrow. NPO consent [facility] Medical History (Updated 08/29/21 @ 22:47 by Bettye Miller) Anxiety Anxiety and depression Brain aneurysm Brain aneurysm Depression Diabetes mellitus type 2 in nonobese GERD (gastroesophageal reflux disease) Hammer toe of right foot History of stress test HLD (hyperlipidemia) Hoarseness HTN (hypertension) HTN (hypertension) Hyponatremia Infiltrating ductal carcinoma of left breast IVH (intraventricular hemorrhage) Migraines Normochromic normocytic anemia Obstructive hydrocephalus Osteoarthritis Posterior tibial tendinitis of right lower extremity SAH (subarachnoid hemorrhage) Tibialis posterior tendinopathy Walking difficulty due to ankle and foot Home Medications Tumeric 1 tab PO DAILY 07/07/15 [History Last Taken 05/26/18] vitamin E 1,000 unit PO DAILY 07/07/15 [History Last Taken 05/26/18] meclizine 25 mg PO Q6H PRN PRN 01/25/19 [History Last Taken Unknown] Glucosamine Chondroitin PLUS 1 cap PO DAILY 02/02/21 [History Last Taken Unknown] acetaminophen [Tylenol] 650 mg PO Q4H PRN PRN 02/02/21 [History Last Taken Unknown] anastrozole [Arimidex] 1 mg PO DAILY 02/02/21 [History Last Taken Unknown] ascorbic acid (vitamin C) 500 mg PO DAILY 02/02/21 [History Last Taken Unknown] aspirin 81 mg PO DAILY 02/02/21 [History Last Taken Unknown] folic acid 0.4 mg PO DAILY 02/02/21 [History Last Taken Unknown] niacin 250 mg PO DAILY 02/02/21 [History Last Taken Unknown] Arthritis Pain Compound 0 click TOPICAL TID #0 02/27/21 [Rx Last Taken Unknown] lisinopril 10 mg PO DAILY #0 tab 03/01/21 [Rx Last Taken Unknown] magnesium 100 mg PO DAILY 08/29/21 [History Last Taken Unknown] nortriptyline 25 mg PO QHS 08/29/21 [History Last Taken Unknown] Allergy/AdvReac Type Severity Reaction Status Date / Time codeine AdvReac Nausea Verified 05/14/19 12:18 fluoxetine HCl [From Prozac] AdvReac shivers Verified 05/14/19 12:18 morphine AdvReac Nausea Verified 05/14/19 12:18 Family History Mother Breast cancer Hypertension Alzheimers disease Aunt Breast cancer Father CAD (coronary artery disease) Sister Alzheimers disease Other Bleeding disorder Surgical History (Updated 08/29/21 @ 22:47 by Bettey Miller) Cataract extraction status H/O laser iridotomy History of appendectomy History of hysterectomy History of total knee arthroplasty Hx of craniotomy S/P breast lumpectomy S/P coil embolization of cerebral aneurysm S/P coil embolization of cerebral aneurysm Social History (Updated 08/29/21 @ 19:[address] Olu Larson MD) household members: none Smoking Status: Never smoker substance use type: does not use Vital Signs Vital Signs Vital Signs: 08/29/21 18:29 08/29/21 18:33 08/29/21 22:26 Temperature 97.9 F 97.9 F 97.6 F L Temperature Source Oral Oral Temporal Pulse Rate 95 95 84 Respiratory Rate 16 18 18 Respiratory Effort Blood Pressure 173/81 H 173/81 H 168/72 H Blood Pressure Mean 111 111 104 Blood Pressure Source Blood Pressure Position Blood Pressure Location Pulse Ox 100 100 100 Oxygen Delivery Method Room Air Room Air Room Air 08/29/21 22:31 08/29/21 22:59 08/30/21 04:23 Temperature 97.4 F L 97.3 F L Temperature Source Oral Oral Pulse Rate 77 88 Respiratory Rate 16 20 H Respiratory Effort Normal Non-Labored Blood Pressure 153/78 H 155/74 H Blood Pressure Mean 103 101 Blood Pressure Source Monitor Monitor Blood Pressure Position Semi-Fowlers Semi-Fowlers Blood Pressure Location Left Arm Left Arm Pulse Ox 100 98 Oxygen Delivery Method Room Air Room Air Room Air Weight Weight: 63.9 kg Body Mass Index (BMI) 24.6 Results Lab / Micro Data Result Diagrams: 08/29/21 19:05 08/29/21 19:05 Labs: Laboratory Results - last 24 hr 08/29/21 18:51: Urine Color Yellow, Urine Clarity Cloudy, Urine pH 8.0, Ur Specific [place] 1.015, Urine Protein Negative, Urine Glucose (UA) Normal, Urine Ketones Negative, Urine Occult Blood 250 H, Urine Nitrite Negative, Urine Bilirubin Negative, Urine Urobilinogen Normal, Ur Leukocyte Esterase 25 H, Urine RBC 10-25 SEEN, Urine WBC 0 SEEN, Ur Squamous Epith Cells 0 SEEN, Urine Bacteria 1+, Urine Mucus 0 SEEN 08/29/21 19:05: WBC 6.6, RBC 4.55, Hgb 13.9, Hct 39.8, MCV 87.5, MCH 30.5, MCHC 34.9, RDW Std Deviation 40.8, RDW Coeff of Meño 12.7, Plt Count 324, MPV 8.5, Immature Gran % (Auto) 0.300, Neut % (Auto) 72.7 H, Lymph % (Auto) 16.6 L, [place] % (Auto) 8.6, Eos % (Auto) 1.5, Baso % (Auto) 0.3, Absolute Neuts (auto) 4.8, Absolute Lymphs (auto) 1.10, Nucleated RBC % 0 08/29/21 19:05: Sodium 138, Potassium 4.8, Chloride 105, Carbon Dioxide 27.0, Anion Gap 6, BUN 16, Creatinine 1.05 H, Estim Creat Clear Calc 38.29, Est GFR (MDRD) Af Amer 66, Est GFR (MDRD) Non-Af 54 L, BUN/Creatinine Ratio 15.2, Glucose 145 H, Calcium 9.8 Radiology Impression Abdomen/Pelvis CT 08/29/21 18:37 IMPRESSION: 1. Presence of a 3 mm in diameter calculus in the proximal left ureter lying 2.3 cm distal to the left pelviureteral junction with a moderate left hydronephrosis. 2. Normal right kidney. 3. No evidence of other calcifications or calculi or cystic or solid mass lesions in either kidney. 4. Normal partially empty bladder. 5. No cholecystitis or pancreatitis. 6. No appendicitis, diverticulitis, colitis, or intestinal obstruction. 7. Mild constipation. Electronically Signed: Brando Pedroza MD at 19:48 EDT , KUB X-Ray 08/30/21 05:00 IMPRESSION: 1. Calcifications in the pelvis likely represent phleboliths. 2. No calcifications overlying the renal shadows. Electronically Signed: Mundo Cortez MD at 5:01 EDT , Assessment & Plan Assessment/Plan (1) Hydronephrosis with urinary obstruction due to ureteral calculus:
[2021-08-30] MEDS: Lisinopril 10 MG Tablet PO (08:45)
[2021-08-30 09:53] VITALS: BP 150/82; PULSE 80; RESP 18; TEMP 36.9; O2SAT 100
[2021-08-30 16:00] VITALS: BP 121/88; PULSE 83; RESP 18; TEMP 37.1; O2SAT 100
[2021-08-30] MEDS: Nortriptyline 25 MG Capsule PO (22:56)
[2021-08-30 23:01] VITALS: BP 127/63; PULSE 76; RESP 18; TEMP 36.5; O2SAT 97
[2021-08-31] VITALS (10 sets, daily range): BP systolic 106–166; BP diastolic 61–93; PULSE 61–83; RESP 16–18; TEMP 36.2–36.7; O2SAT 96–99; BMI 24.8
--- NOTE | 2021-08-31 | CALC_PTH ---
PATIENT: QUINCY KRAUSE LOC: [facility]3 U#:[id number] AGE/SX: 76/F ROOM: [facility]312 RE08/29/[address]: Dr. Harpreet Carson MD : 1945 BED: 1 DIS: 08/31/2021 SPEC #: [id number] RECD: 08/31/21 08:06 STATUS: PRAMOD RAMIREZ #: [id number] DAVID: 08/31/21 00:[address]: Harpreet Carson DEPT: SURGICAL PATHOLOGY RECD BY: Tooite [place] ENTERED: 09/03/21 08:06 SP TYPE: Calculi OTHR DR: Dr. Radha Chang MD Tissues: CALCULI Procedures: Surgery Specimen Level I HEADER OPERATION: Cystoscopy, left ureteroscopy, balloon dilation of left ureter PRE-OP DIAGNOSIS: Left ureteral calculi with obstruction TISSUE SUBMITTED: Left ureteral calculi for analysis GROSS DIAGNOSIS A fragment of stone, clinically left ureteral calculus, submitted for analysis. [place]:didi 09/04/2021 COMMENT The calculus is submitted in its entirety for chemical stone analysis. The results from this study will be reported separately. GROSS DESCRIPTION Received without fixative labeled with the patient's name and designated left ureteral calculi. The specimen consists of a fragment of light brown stone measuring 0.2 x 0.2 x 0.1 cm. The entire specimen is submitted for stone analysis. / [place]:didi 09/03/2021 CPT: 69492
[2021-08-31] MEDS: Acetaminophen 325 MG Tablet 650 MG PO (00:49)
[2021-08-31] MEDS: 0.9% Normal Saline 1,000 ML 100 ML IV ×2 (03:26→12:23)
[2021-08-31] MEDS: HYDROmorphone 1 MG/ML Syringe IV (08:18)
--- NOTE | 2021-08-31 08:36 | CASEMGMT ---
LAURITA CM in to discuss FREEMAN form with patient. RN CM explained FREEMAN form, patient voiced understanding. Pt signed form and filed in chart. Pt provided with a copy of signed FREEMAN form. Patient had no further questions or concerns at this time.
[2021-08-31] MEDS: proCHLORPERazine 10 MG/2 ML Vial IV (10:02)
--- NOTE | 2021-08-31 15:02 | PN_ITS ---
Progress Note 76-year-old female has failed to pass her kidney stone plan for treatment today with shockwave lithotripsy Physical Exam Const alert and oriented x3 General Appearance: cooperative HEENT normocephalic and head/scalp atraumatic Eyes PERRL and EOMs intact bilaterally Neck supple, no JVD and no carotid bruits Resp normal respiratory effort, normal air movement and clear to auscultation bilaterally Cardio regular rate and no murmurs GI normal to inspection, nondistended, normoactive bowel sounds and soft to pal pation Extremity normal capillary refill General Extremity: no tenderness to palpation of joints or extremities; Negative for edema Skin no rashes or lesions noted and no wounds General Skin Exam: no breakdown Neuro CN's II-XII intact bilaterally Psych affect normal Appearance: appropriate
[2021-08-31] MEDS: Cefazolin 1 GM/50 ML BAG IV (15:10)
--- NOTE | 2021-08-31 15:28 | OP.PCM_ITS ---
Report of Operation Date of Procedure: 08/31/21 Pre-Operative Diagnosis: Ureteral calculi causing obstruction Post-Operative Diagnosis: Same Surgery/Procedure Performed:: Cystoscopy, balloon dilation of the Left ureter, Left ureteroscopy basket extraction of stone and LEFT stent placement. Description of Surgical Findings:: Indication this is a 76-year-old female presented to the hospital with severe renal colic on the Left side she has not been able to pass the stone spontaneously x-ray yesterday demonstrated the stone in the mid ureter so I plan to do shockwave lithotripsy. Today she was brought to the operating room she underwent general anesthesia we looked under fluoroscopy we could not identify the stone therefore I decided to proceed with ureteroscopy. She was positioned in dorsolithotomy position the urethra urethra and vaginal area prepped and draped in usual fashion within the bladder with a 21 [place] rigid cystourethroscope identified the left ureteral orifice it was quite stenotic, I then put a 0.038 wire up the ureter and immediately could feel stone causing resistance we looked under fluoroscopy there was a tiny fragment in the area so I advanced a balloon dilator was a 12 [place] centimeter balloon dilator over the wire we balloon dilated the distal ureter I then went in with a offset ureteroscope first I could not identify the stone but then as I worked my way back then I found the stone right in the distal ureter right and there ureterovesical junction area and then used a tipless basket and basketed the stone and extracted the stone. The stone was then sent off as a specimen since we have the dilate the ureter and since the stone was stuck in the distal ureter I decided place a stent to make sure that the ureter healed up nicely so over the wire then we placed a 6 [place] by 26 cm stent the stent was in good position I pulled the wire and the stent coiled in the kidney bladder good position the bladder was drained anesthetic was reversed and I went spoke to the family regarding the findings that we extracted the stone and put a stent in. Surgeon: gerson Type of Anesthesia: General Admit VTE Documentation VTE Present on Admission: No VTE Mechan Device Prophylaxis: SCD's VTE Pharm Prophylaxis ordered?: No
--- NOTE | 2021-08-31 15:41 | PCM.DC ---
Discharge Instructions Diet Discharge Diet: No restrictions Activity Discharge Activity: Return to Normal Activity and May Not Drive (while taking narcotic pain medications.) Dressing / Incision Call your doctor if you observe: Fever of 101 or Higher Follow Up Care Please Follow Up With: Harpreet Carson MD When: Call [phone] for an appointment Test Results: Test results from this visit will be discussed in further detail at your follow-up appointment, if applicable. Discharge Plan Admission Admit Date/Time: 08/29/21 21:30 Primary Reason for Your Visit: treatment of kidney stone Attending Provider: Harpreet Carson Primary Care Provider: Radha Chang Instructions Patient Instructions: Having a Ureteral Stent Discharge Orders/Prescriptions Prescriptions: New ciprofloxacin HCl [Cipro] 500 mg tablet 500 mg PO BID Qty: 6 RF: 0 oxycodone-acetaminophen 5-325 mg tablet 1 tab PO Q6H PRN (Reason: pain) 7 Days Qty: 14 RF: 0 Continued vitamin E 1,000 UNIT capsule 1,000 unit PO DAILY RF: 0 Tumeric 1 tab PO DAILY RF: 0 meclizine 25 MG tablet,chewable 25 mg PO Q6H PRN PRN (Reason: Vertigo) RF: 0 anastrozole [Arimidex] 1 mg Tablet 1 mg PO DAILY RF: 0 folic acid 400 mcg Tablet 0.4 mg PO DAILY RF: 0 ascorbic acid (vitamin C) 500 mg Tablet 500 mg PO DAILY RF: 0 aspirin 81 mg Tablet 81 mg PO DAILY RF: 0 niacin 250 mg Tablet 250 mg PO DAILY RF: 0 Glucosamine Chondroitin PLUS [id number] mg Capsule 1 cap PO DAILY RF: 0 acetaminophen [Tylenol] 325 MG tablet 650 mg PO Q4H PRN PRN (Reason: Pain) RF: 0 Arthritis Pain Compound 0 click topical TID Qty: 0 RF: 0 lisinopril 10 mg Tablet 10 mg PO DAILY Qty: 0 RF: 0 nortriptyline 25 mg capsule 25 mg PO QHS RF: 0 magnesium 100 mg Capsule 100 mg PO DAILY RF: 0 Referrals / Follow Up: Harpreet Carson MD [STAFF PHYSICIAN] - Radha Chang MD [Primary Care Provider] - Disposition Discharge Orders: Discharge Patient (Routine); Ordered 08/31/21 Ordered By: Dr. Harpreet Carson
[2021-08-31] MEDS: 0.9% Saline Lock 10 ML Syringe IV (16:44)
[2021-09-06 17:25] LABS: Source Left Ureter
== END 2021-08-31 19:00 | disposition home or self-care (01) ==
LOC: ED 20:42 → MS3 21:31
PROVIDERS: Admitting Provider Urology; Emergency Provider Emergency Medicine; PCP Internal Medicine; Visit Provider Urology
PROC: (CPT 50590; principal; 2021-08-31 14:50)
DX: N13.2 Hydronephrosis with renal and ureteral calculous obstruction (principal); E11.9 Type 2 diabetes mellitus without complications; I10 Essential (primary) hypertension; R79.89 Other specified abnormal findings of blood chemistry; K21.9 Gastro-esophageal reflux disease without esophagitis; E78.5 Hyperlipidemia, unspecified; M19.90 Unspecified osteoarthritis, unspecified site; Z79.899 Other long term (current) drug therapy; Z79.82 Long term (current) use of aspirin
CPT/HCPCS: 52320; 52332; 00918; 74018; 74176; 80048; 81001; 82360; 85025; 87086; 87426; 88300; 96361; 96365; 96375; 96376; 99218; 99285; J7030; A4216; C1769; C2617; G0378; J2405

== ENCOUNTER 2024-02-27 14:08 | Emergency (ER) | payer MEDICARE, SELFPAY ==
[2024-02-27 14:09] VITALS: BP 134/74; PULSE 93; RESP 20; TEMP 36.7; O2SAT 99; BMI 27.4
--- NOTE | 2024-02-27 14:23 | RAD_ITS ---
STUDY: X-RAY - CERVICAL SPINE REASON FOR EXAM: Female, 79 years old. Injury/Pain -- Pain to palpation spinous process C7 TECHNIQUE: 3 view(s) of the cervical spine were obtained. COMPARISON: None FINDINGS: Normal anterior atlantoaxial articulation. Normal odontoid process. There is an exaggerated cervical lordosis. Normal vertebral bodies and endplates. Mild degree of disc space narrowing at the C6-C7 level. Normal visualized intervertebral neuroforamina. The soft tissue structures are unremarkable. RAD/Cerv Spine 2 or 3 Views IMPRESSION: Exaggerated cervical lordosis. This space narrowing at the C6-C7 level. Electronically Signed: Khanh Huston MD at 14:55 EDT ,
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
[2024-02-27 15:01] VITALS: BP 140/84; PULSE 95; RESP 18; TEMP 36.4; O2SAT 96
== END 2024-02-27 15:01 | disposition home or self-care (01) ==
PROVIDERS: Emergency Provider Emergency Medicine; PCP Internal Medicine; Visit Provider Emergency Medicine
DX: S16.1XXA Strain of muscle, fascia and tendon at neck level, initial encounter (principal); E11.9 Type 2 diabetes mellitus without complications; S50.312A Abrasion of left elbow, initial encounter; V49.40XA Driver injured in collision with unspecified motor vehicles in traffic accident, initial encounter; I10 Essential (primary) hypertension; E78.5 Hyperlipidemia, unspecified; Z79.82 Long term (current) use of aspirin; Z79.899 Other long term (current) drug therapy
CPT/HCPCS: 72040; 99284

== ENCOUNTER 2024-08-25 19:34 | Inpatient (IN) | payer MEDICARE, SELFPAY ==
[2024-08-25] VITALS (15 sets, daily range): BP systolic 101–153; BP diastolic 65–114; PULSE 73–88; RESP 12–22; TEMP 36.9; O2SAT 95–99; BMI 26.6
--- NOTE | 2024-08-25 20:12 | CT_ITS ---
PROCEDURE: CT CHEST, ABD, PEL W/CONTRAST 08/25/2024 REASON FOR EXAM: FALL, AMS, BACK PAIN TECHNIQUE: Chest, abdomen and pelvis CT with intravenous contrast. Coronal and Sagittal reconstruction series were provided. One or more dose reduction techniques were used (e.g., Automated exposure control, adjustment of the mA and/or kV according to patient size, use of iterative reconstruction technique. PATIENT PREPARATION: Per protocol CONTRAST: Omnipaque 350 VOLUME: 100mL choose 1 gauge IV COMPARISON: CT abdomen and pelvis 08/29/2021 FINDINGS: CT CHEST: Hardware: None Lymph nodes: No suspicious adenopathy. Heart and Vasculature: No cardiomegaly. No significant coronary artery calcifications. No pericardial effusion. Atherosclerotic calcifications of the thoracic aorta. Pulmonary arteries are unremarkable. Lungs and Airways: Central airways are patent without endobronchial lesions. Patchy opacities in the lung base, compatible with atelectasis. No focal consolidation. No suspicious pulmonary nodules. No pneumothorax. Mild biapical scarring. Bones: No suspicious osseous lesions. CT ABDOMEN/PELVIS: Liver: Homogeneous attenuation. No focal lesion. Gallbladder: No ductal dilation. No cholelithiasis. Spleen: No splenomegaly. Pancreas: Normal size without evidence of mass surrounding inflammation or ductal dilation. Adrenals: Unremarkable. Kidneys: Normal renal sizes. No hydronephrosis. Subcentimeter low-attenuation lesions, too small to characterize and likely benign. Bladder: Urinary bladder is unremarkable Reproductive Organs: No pelvic mass. Bowel: Stomach is collapsed. No bowel dilation. Extensive colonic stool with fecal impaction. Colonic diverticulosis without evidence of diverticulitis. Mild descending and proximal sigmoid wall thickening and surrounding soft tissue stranding. Appendix: The appendix is not identified. There is no inflammatory process identified in the right lower quadrant to suggest appendicitis. Lymph nodes: Unremarkable. Vasculature: The abdominal aorta and IVC are normal. Diffuse atherosclerotic calcification of the abdominal aorta and iliac arteries. Peritoneum / Retroperitoneum: No pneumoperitoneum. No ascites. Bones: Degenerative changes of the spine. CT/CT Chest, Abd, Pel w/Contrast IMPRESSION: 1. No acute findings in the chest, abdomen and pelvis. 2. Mild descending and sigmoid colon wall thickening, suggestive of underlying infectious colitis. 3. Other findings as described above. Reading [facility]
--- NOTE | 2024-08-25 20:12 | EKG12_ITS ---
Test Reason : Blood Pressure : */* mmHG Vent. Rate : 77 BPM Atrial Rate : 77 BPM P-R Int : 224 ms QRS Dur : 94 ms QT Int : 404 ms P-R-T Axes : 49 -2 51 degrees QTcB Int : 457 ms Sinus rhythm with 1st degree A-V block Otherwise normal ECG Confirmed by RAFAEL TAVERA, GOLDY ([id number]), online content editor APURVA CAMEJO ([id number]) on 08/26/2024 1:29:01 PM Referred By: HEATH Confirmed By: GOLDY HALL MD
--- NOTE | 2024-08-25 20:12 | CT_ITS ---
PROCEDURE: SPINE CERVICAL WITHOUT CONTRAS 08/25/2024 REASON FOR EXAM: TRAUMA TECHNIQUE: Cervical spine CT without contrast. Coronal and Sagittal reconstruction series were provided. One or more dose reduction techniques were used (e.g., Automated exposure control, adjustment of the mA and/or kV according to patient size, use of iterative reconstruction technique FINDINGS: Alignment: Anatomic alignment with no subluxation. Vertebrae: No acute fracture. Soft Tissues: No prevertebral soft tissue swelling. Other: Facet hypertrophy throughout the cervical spine consistent with degenerative disc disease. CT/Spine Cervical without Contras IMPRESSION: NO ACUTE CERVICAL FRACTURE. DEGENERATIVE CHANGES. Reading Location: [id number]
--- NOTE | 2024-08-25 20:12 | CT_ITS ---
PROCEDURE: BRAIN/HEAD WITHOUT CONTRAST 08/25/2024 REASON FOR EXAM: TRAUMA TECHNIQUE: Head CT without intravenous contrast. Coronal and Sagittal reconstruction series were provided. One or more dose reduction techniques were used (e.g., Automated exposure control, adjustment of the mA and/or kV according to patient size, use of iterative reconstruction technique. COMPARISON: CT brain 02/08/2021 and MRI brain 05/30/2018 FINDINGS: Postoperative changes aneurysmal clipping in the left MCA and posterior communicating artery region. Extensive streak artifact, limits evaluation. No acute intracranial hemorrhage, mass, mass effect, midline shift or pathologic extra-axial fluid collection. Mild parenchymal atrophy with commensurate increase in CSF containing spaces. Left frontal lobe encephalomalacia, likely from prior insult. Ex vacuo dilatation frontal horn left lateral ventricle, from adjacent encephalomalacia. Patchy white matter hypodensities, patient demographics favor chronic microvascular ischemic changes. Paranasal sinuses and mastoid air cells are clear. Left frontal calvarial craniotomy defect. CT/Brain/Head without Contrast IMPRESSION: No acute intracranial abnormality. Postoperative changes as described above. Chronic microvascular ischemia and involutional changes. Reading Location: [facility]
[2024-08-25] MEDS: 0.9% Normal Saline (1000mL) 1,000 ML 999 ML IV (20:27)
[2024-08-25 20:48] LABS: Absolute Lymphocyte Count 2.25 X10^3/uL (0.83-4.51); Absolute Neutrophil Count 7.2 X10^3/uL (2.0-7.7); Basophil# 0.06 X10^3/uL; Basophil% 0.6 % (0-1); Eosinophil# 0.37 X10^3/uL; Eosinophils% 3.4 % (0-5); Hematocrit 39.4 % (37-47); Hemoglobin 13.3 g/dL (12.0-15.0); Lymphocyte # 2.25 X10^3/ul (0.83-4.51); Lymphocyte % 20.8 % (19-41); Mean Corp Hgb Conc 33.8 g/dL (32-36); Mean Corpuscular Hgb 30.8 pg (27.0-32.0); Mean Corpuscular Volume 91.2 fL (81-99); Mean Platelet Vol. 8.8 fl (6.2-12.0); Monocyte# 0.89 X10^3/uL; Monocyte% 8.2 % (0-10); NRBC Flagged by Analyzer 0 % (0-5); Neutrophil # 7.19 X10^3/uL (2.7-7.7); Neutrophil % 66.5 % (47-70); Platelet Count 341 K/mm3 (150-450); RBC Distribution Width CV 12.4 % (11.6-14.6); RBC Distribution Width SD 41.2 fl (35.1-43.9); Red Blood Count 4.32 M/mm3 (4.2-5.4); White Blood Count 10.8 K/mm3 (4.4-11.0)
[2024-08-25 21:20] LABS: Prothrombin Time (Protime)PT. 13.8 SECONDS (11.7-14.9)
[2024-08-25 21:21] LABS: Partial Thromboplast Time 25.4 Seconds (24.1-36.2)
[2024-08-25 21:21] LABS: AST(SGOT) 38 U/L (<=31); Alanine Aminotransfer ALT/SGPT 19 U/L (<=34); Albumin, Serum 3.9 g/dL (3.4-4.8); Alkaline Phosphatase 46 U/L (35-104); Anion Gap 14 (5-15); BUN 29 mg/dL (4-19); Bilirubin, Direct 0.13 mg/dL (0.00-0.30); Calcium,Total 9.9 mg/dL (7.6-11.0); Carbon Dioxide 23.5 mmol/L (21.0-32.0); Chloride 101 mmol/L (98-108); Creatinine, Serum 1.25 mg/dL (0.70-1.20); EST Glomerular Filtration Rate 44 (>60); Estimated Creatinine Clearance 34.38 ml/min (50-250); Glucose 89 mg/dL (70-99); Potassium 4.7 mmol/L (3.3-5.1); Protein, Total 6.9 g/dL (5.9-8.4); Sodium Level 138 mmol/L (133-145)
[2024-08-25 21:55] LABS: Mucous, Urine 0 SEEN /hpf (<or=2+)
[2024-08-25 22:00] LABS: Color, Urine Yellow (Yellow); Glucose, Dipstick Normal (Normal); Ketone-Dipstick 5 mg/dl (Negative); Leukocyte Esterase-Dipstick 500 /ul (Negative); Nitrite-Dipstick Negative (Negative); Occult Blood-Urine 25 /ul (Negative); Specific Gravity, Urine 1.005 (1.002-1.030); Urine Bilirubin Dipstick Negative (Negative); Urine Clarity Cloudy (Clear); Urine Urobilinogen Normal (Normal)
--- NOTE | 2024-08-25 22:10 | ED.RN ---
CALL JERROD ISAAC, DAUGHTER, WITH UPDATES AT [phone]
[2024-08-25 22:27] LABS: Red Blood Cells-Urine 0-5 SEEN /hpf (0-5); White Blood Cells 10-25 SEEN /hpf (0-5)
[2024-08-25 22:28] LABS: Bacteria RARE /hpf (None Seen); Squamous Epithelial Cells - UA 0-5 SEEN /hpf (5-10)
[2024-08-25] MEDS: Ceftriaxone 1 GM/50 ML BAG IV (22:49)
[2024-08-25 22:59] LABS: Protein, Urine (Random) 16.1 mg/dL (0.0-12.0)
--- NOTE | 2024-08-25 23:34 | EX.ED.DYSGE1 ---
HPI History of Present Illness Chief Complaint: Fall Narrative Narrative: Patient is a 71-year-old female with past medical anxiety, depression, migraine, type 2 diabetes, previous anterior ventricular hemorrhage status post surgery, GERD, hypertension who presented to the emergency department with a chief complaint of fall, confusion. According to the patient earlier today she fell and states that she just does not feel right. She could not further really elaborate on this. Per EMS she fell on Friday as well and refused transport to the hospital at that point in time. They state that she lives alone and they have been called out multiple times. PFSH PFS Medical History Hoarseness History of stress test Anxiety Depression Migraines Normochromic normocytic anemia Diabetes mellitus type 2 in nonobese Hyponatremia Obstructive hydrocephalus IVH (intraventricular hemorrhage) Infiltrating ductal carcinoma of left breast HTN (hypertension) Brain aneurysm SAH (subarachnoid hemorrhage) Walking difficulty due to ankle and foot Hammer toe of right foot Tibialis posterior tendinopathy Posterior tibial tendinitis of right lower extremity Brain aneurysm GERD (gastroesophageal reflux disease) Osteoarthritis HLD (hyperlipidemia) Anxiety and depression HTN (hypertension) Home Medications ?Medication ?Instructions ?Recorded ?Last Taken ?Type aspirin 81 mg tablet 81 mg PO DAILY heart health 02/02/21 Unknown History letrozole 2.5 mg tablet 2.5 mg PO DAILY 08/25/24 Unknown History losartan 50 mg tablet 50 mg PO DAILY 08/25/24 Unknown History metformin 500 mg tablet 500 mg PO DAILY diabetes mellitus 08/25/24 Unknown History nortriptyline 50 mg capsule 100 - 150 mg PO QHS 08/25/24 Unknown History Allergy/AdvReac Type Severity Reaction Status Date / Time codeine AdvReac Nausea Verified 08/25/24 19:38 fluoxetine HCl (From Prozac) AdvReac shivers Verified 08/25/24 19:38 morphine AdvReac Nausea Verified 08/25/24 19:38 Family History Mother Breast cancer Hypertension Alzheimers disease Aunt Breast cancer Father CAD (coronary artery disease) Sister Alzheimers disease Other Bleeding disorder Surgical History History of appendectomy S/P coil embolization of cerebral aneurysm History of total knee arthroplasty Hx of craniotomy Cataract extraction status H/O laser iridotomy History of hysterectomy S/P breast lumpectomy S/P coil embolization of cerebral aneurysm Social History household members: none Smoking Status: Never smoker substance use type: does not use ROS ROS ED ROS Narrative Constitutional: Denies fever, chills, headaches, dizziness Eyes: Denies double vision blurry vision Cardiovascular: Denies chest pain Respiratory: Denies shortness of breath, cough Abdomen: Denies abdominal pain nausea vomit diarrhea : Denies urinary symptoms Neurological: Denies numbness, weakness, tingling Musculoskeletal: Complains of back pain Skin: Denies rashes or lesions EXAM Physical Exam Narrative Exam Narrative: General: Patient is lying in bed rest comfortably not appear to be in acute distress Head: Atraumatic, normocephalic Eyes: PERRL bilaterally, EOMI bilaterally, no conjunctival injection noted Neck: Soft, supple, trachea midline Cardiovascular: Regular rate and rhythm Respiratory: Clear to auscultation bilaterally Abdomen: Soft, nondistended, nontender to palpation Musculoskeletal: All bony prominence palpated joints taken full range of motion no pain elicited Extremities: +4/5 strength noted in the bilateral upper and lower extremities, radial pulses +2/4 in the bilateral extremities Neurological: Patient was able to tell me that she was at the hospital and that we were in spring. She knew that it was 2024 Skin: Warm, dry, intact no rashes lesions noted Const Vital Signs: 08/25/24 19:35 08/25/24 20:34 08/25/24 21:00 Temperature 98.4 F Temperature Source Oral Pulse Rate 88 82 77 Respiratory Rate 16 20 H 13 Blood Pressure 145/73 H 153/82 H 152/77 H Blood Pressure Mean 97 105 102 Pulse Ox 99 97 95 Oxygen Delivery Method 08/25/24 22:00 08/25/24 23:22 08/25/24 23:41 Temperature 98.4 F Temperature Source Pulse Rate 78 74 76 Respiratory Rate 22 H 16 16 Blood Pressure 145/70 H 147/69 H 141/65 H Blood Pressure Mean 95 95 90 Pulse Ox 96 97 98 Oxygen Delivery Method Room Air Room Air MDM MDM MDM Narrative Medical decision making narrative: Patient is a 79-year-old female who presented to the emergency department chief complaint of fall and confusion. On the differential diagnosis includes but not limited to intracranial hemorrhage, ACS, pneumonia, pneumothorax, thoracic/lumbar spine fracture, electrolyte abnormality, generalized weakness. Once workup is obtained reviewed she will be reevaluated. Patient CBC was reviewed and showed a white blood count of 10, hemoglobin stable 13.3, platelet count was 341. Patient INR normal at 1, PT of 13.8. Patient sodium was 138, potassium was 4.7, creatinine was 1.25. Patient's glucose was normal at 89. Patient's AST and ALT were 38 and 19 respectively. Patient's urinalysis showed 500 leukocyte esterase 10-25 white cells with rare bacteria noted she was given a gram Rocephin this was sent for culture. Patient's CT brain was reviewed and showed no acute intracranial abnormality noted. Postoperative changes noted as described. Chronic microvascular ischemia with involutional changes noted. Patient CT cervical spine showed no acute fracture degenerative changes. Patient CT chest abdomen pelvis with IV contrast was reviewed and showed no acute findings she had mild descending and sigmoid colon wall thickening suggestive of Infectious colitis. Called the patient's daughter who is a power of medical radiation tech and she states that she currently lives alone in the last few weeks she has had at least 7 falls if not more and EMS has had to go out to her house to help her. She states that she has waxing and waning confusion. States that 2 weeks ago she was diagnosed with a urinary tract infection had antibiotics and the repeat urine seemed to not show any evidence of infection. She states that herself and her sister both live out of state and she has no support and feels that she needs placement as she cannot live alone anymore. Will discuss the case with hospitalist for admission for placement. Discussed case with hospitalist who accept patient for admission. Patient was notified as well as her daughter on the phone power of medical radiation tech who is agreeable to plan all question concerns answered. Lab Data Labs: Laboratory Results - last 24 hr 08/25/24 08/25/24 08/25/24 19:50 20:53 21:51 WBC 10.8 RBC 4.32 Hgb 13.3 Hct 39.4 MCV 91.2 MCH 30.8 MCHC 33.8 RDW Std Deviation 41.2 RDW Coeff of Meño 12.4 Plt Count 341 MPV 8.8 Immature Gran % (Auto) 0.500 Neut % (Auto) 66.5 Lymph % (Auto) 20.8 [place] % (Auto) 8.2 Eos % (Auto) 3.4 Baso % (Auto) 0.6 Absolute Neuts (auto) 7.2 Absolute Lymphs (auto) 2.25 Nucleated RBC % 0 PT 13.8 INR 1.0 APTT 25.4 Sodium 138 Potassium 4.7 Chloride 101 Carbon Dioxide 23.5 Anion Gap 14 BUN 29 H Creatinine 1.25 H Estim Creat Clear Calc 34.38 L Est GFR (MDRD) Non-Af 44 L BUN/Creatinine Ratio 23.0 H Glucose 89 Calcium 9.9 Total Bilirubin 0.50 Direct Bilirubin 0.13 AST 38 H ALT 19 Alkaline Phosphatase 46 Total Protein 6.9 Albumin 3.9 Globulin 3.0 Urine Color Yellow Urine Clarity Cloudy Urine pH 7.0 Ur Specific [place] 1.005 Urine Protein TNP Urine Glucose (UA) Normal Urine Ketones 5 H Urine Occult Blood 25 H Urine Nitrite Negative Urine Bilirubin Negative Urine Urobilinogen Normal Ur Leukocyte Esterase 500 H Urine RBC 0-5 SEEN Urine WBC 10-25 SEEN Ur Squamous Epith Cells 0-5 SEEN Urine Bacteria RARE Urine Mucus 0 SEEN U Random Total Protein 16.1 H Radiography Diagnostic Testing: Clinical Impression(s) from Imaging Studies Brain CT 08/25/24 20:12 IMPRESSION: No acute intracranial abnormality. Postoperative changes as described above. Chronic microvascular ischemia and involutional changes. Reading Location: [facility] Cervical Spine CT 08/25/24 20:12 IMPRESSION: NO ACUTE CERVICAL FRACTURE. DEGENERATIVE CHANGES. Reading Location: [id number] Chest/Abdomen/Pelvis CT 08/25/24 20:12 IMPRESSION: 1. No acute findings in the chest, abdomen and pelvis. 2. Mild descending and sigmoid colon wall thickening, suggestive of underlying infectious colitis. 3. Other findings as described above. Reading Location: [facility] Discharge Plan Triage Chief Complaint: Fall ED Provider: Hermes Salas Dx/Rx/DC Orders Clinical Impression: Multiple falls, Adult failure to thrive Prescriptions: No Action aspirin 81 mg Tablet 81 mg PO DAILY losartan 50 mg tablet 50 mg PO DAILY metformin 500 mg tablet 500 mg PO DAILY letrozole 2.5 mg tablet 2.5 mg PO DAILY nortriptyline 50 mg capsule 100 - 150 mg PO QHS Primary Care Provider: Radha Chang Referrals: Radha Chang MD [Primary Care Provider] - Print Language: Marshallese Disposition Disposition: Acute Care Hospital [facility]
--- NOTE | 2024-08-25 23:43 | ED.RN ---
DAUGHTER INFORMED OF ADMISSION, PROVIDED WITH HOSPITAL PHONE NUMBER AND ENCOURAGED TO CALL FOR UPDATES
--- NOTE | 2024-08-25 23:50 | HP.PCM.HOS_ITS ---
HPI - General General Date of Admission: 08/25/24 Date of Service: 08/25/24 Chief Complaint: Serial mechanical falls, unable to care for self, adult failure to thrive HPI Narrative The patient is a 79 y/o F w/ PMHx: CKD stage III unclear subtype per GFR trending, HTN, Diabetes mellitus type II, History of cerebral aneurysm with spontaneous rupture with intraventricular hemorrhage, subarachnoid hemorrhage s/p coiling and craniotomy, Hx infiltrating ductal carcinoma of the left breast, Anxiety and Depression, GERD who presents to [facility] ED on 08/25/2024 with history of significant fall history with at least 7 falls over the last 1 and half weeks with chart documented history of delusional disorder with family reporting intermittent increased confusion with recent fall on day of presentation prompting her to eventually be able to call her daughter noting to her specifically that she was having some difficulty getting herself up and requested assistance prompting her daughter to call EMS to transition her to the ED for evaluation. Workup in the ED included T98.4, heart rate 88, BP 145/73, respiratory rate 16, 99% on room air with most recent repeat vitals T97.8, heart rate 76, BP 150/73, respiratory rate 16, 98% room air, CBC with WBC 10.8, he 1 13.3, platelet 341 without marked shift, unremarkable coags, CMP with BUN/creatinine 29/1.25, GFR 44, AST 38 otherwise hepatic profile unremarkable, urinalysis with no obvious evidence of UTI, CT brain with no acute cranial finding with postop changes with chronic microvascular ischemia and involutional changes, CT cervical spine with no acute cervical fracture, degenerative changes noted, CT chest/abdomen/pelvis with with no acute findings, mild descending and sigmoid colon wall thickening. In the ED patient administered 1 L normal saline, initial concerns for possible UTI therefore patient administered Rocephin 1 g x 1. [facility] Medical History Hoarseness History of stress test Anxiety Depression Migraines Normochromic normocytic anemia Diabetes mellitus type 2 in nonobese Hyponatremia Obstructive hydrocephalus IVH (intraventricular hemorrhage) Infiltrating ductal carcinoma of left breast HTN (hypertension) Brain aneurysm SAH (subarachnoid hemorrhage) Walking difficulty due to ankle and foot Hammer toe of right foot Tibialis posterior tendinopathy Posterior tibial tendinitis of right lower extremity Brain aneurysm GERD (gastroesophageal reflux disease) Osteoarthritis HLD (hyperlipidemia) Anxiety and depression HTN (hypertension) Home Medications ?Medication ?Instructions ?Recorded ?Last Taken ?Type aspirin 81 mg tablet 81 mg PO DAILY heart health 02/02/21 Unknown History letrozole 2.5 mg tablet 2.5 mg PO DAILY 08/25/24 Unk nown History losartan 50 mg tablet 50 mg PO DAILY 08/25/24 Unkn own History metformin 500 mg tablet 500 mg PO DAILY diabetes joy litus 08/25/24 Unknown History nortriptyline 50 mg capsule 100 - 150 mg PO QHS Unknown History Allergy/AdvReac Type Severity Reaction Status Date / Time codeine AdvReac Nausea Verified 08/25/24 19:38 fluoxetine HCl (From Prozac) AdvReac shivers Verified 08/25/24 19:38 morphine AdvReac Nausea Verified 08/25/24 19:38 Family History Mother Breast cancer Hypertension Alzheimers disease Aunt Breast cancer Father CAD (coronary artery disease) Sister Alzheimers disease Other Bleeding disorder Surgical History History of appendectomy S/P coil embolization of cerebral aneurysm History of total knee arthroplasty Hx of craniotomy Cataract extraction status H/O laser iridotomy History of hysterectomy S/P breast lumpectomy S/P coil embolization of cerebral aneurysm Social History household members: none Smoking Status: Never smoker alcohol intake: never substance use type: does not use ROS ROS Narrative Admission Review of Systems: CONSTITUTIONAL: No weight loss, fever, chills, + weakness or fatigue. HEENT: Eyes: No visual loss, blurred vision, double vision or yellow sclerae. Ears, Nose, Throat: No hearing loss, sneezing, congestion, runny nose or sore throat. SKIN: No rash or itching, lesions, wounds except + occasional stage ecchymoses, abrasions especially with recent fall history. CARDIOVASCULAR: No chest pain, chest pressure or chest discomfort, palpitations, edema, orthopnea, syncopal events. RESPIRATORY: No shortness of breath, cough or sputum, wheezing, hemoptysis. GASTROINTESTINAL: No anorexia, nausea, vomiting or diarrhea, abdominal pain, melena, BRBPR. GENITOURINARY: No dysuria, frequency, urgency or retention. NEUROLOGICAL: + Gait debility, frequent falls. No headache, dizziness, syncope, paralysis, ataxia, numbness or tingling in the extremities, focal weakness, change in bowel or bladder control, seizure. MUSCULOSKELETAL: + muscle, back pain, joint pain or stiffness. HEMATOLOGIC: No anemia. + Easy bleeding/bruising. LYMPHATICS: No enlarged nodes. No history of splenectomy. PSYCHIATRIC: + History of anxiety and depression. ENDOCRINOLOGIC: No reports of sweating, cold or heat intolerance. No polyuria or polydipsia. ALLERGIES: No history of asthma, hives, eczema or rhinitis. Vital Signs Vital Signs Vital Signs: 08/25/24 19:35 08/25/24 20:34 08/25/24 21:00 Temperature 98.4 F Temperature Source Oral Pulse Rate 88 82 77 Respiratory Rate 16 20 H 13 Blood Pressure 145/73 H 153/82 H 152/77 H Blood Pressure Mean 97 105 102 Pulse Ox 99 97 95 Oxygen Delivery Method 08/25/24 22:00 08/25/24 23:22 08/25/24 23:41 Temperature 98.4 F Temperature Source Pulse Rate 78 74 76 Respiratory Rate 22 H 16 16 Blood Pressure 145/70 H 147/69 H 141/65 H Blood Pressure Mean 95 95 90 Pulse Ox 96 97 98 Oxygen Delivery Method Room Air Room Air Weight Weight: 150 lb 5.684 oz Body Mass Index (BMI) 26.6 Physical Exam Narrative Physical Examination: General: Awake, alert, oriented to self, place and recent events, remains cooperative, seated upright in ED bed, does admit to recent frequent falls, potentially not using her assistive device in the home all the time per discussions. Skin: Normal color, normal turgor, no icterus, no cyanosis Except occasional stage ecchymoses, abrasion. HEENT: AT/NC, EOMI, PERRLA, mildly dry MM, no carotid bruits or JVD noted. Lungs: Mildly diminished, greater bases, appropriate effort, no evidence of distress, no rales, ronchi or wheezing. Heart: Regular rate and rhythm; no gallop, rub audible. Abdomen: Soft, NTTP, ND, mildly hyperactive BS, no appreciated HSM. Extremities: No cyanosis, no clubbing, no marked peripheral edema noted. Neurological: Patient awake, alert, oriented as noted, cognitive function suspect near baseline intact but from records does have delusional disorder listed in her chart history, pupils equally reactive to light and accommodation, cranial nerves grossly normal, moving all 4 extremities, no focal deficits, strength moderately to severely globally decreased. Psychiatric: Affect appears mildly fatigued otherwise no distress, no acute evidence of depressive or anxiety feelings but does have underlying history. Results Lab / Micro Data 08/25/24 19:50 08/25/24 19:50 Labs: Laboratory Results - last 24 hr 08/25/24 19:50: WBC 10.8, RBC 4.32, Hgb 13.3, Hct 39.4, MCV 91.2, MCH 30.8, MCHC 33.8, RDW Std Deviation 41.2, RDW Coeff of Meño 12.4, Plt Count 341, MPV 8.8, Immature Gran % (Auto) 0.500, Neut % (Auto) 66.5, Lymph % (Auto) 20.8, [place] % (Auto) 8.2, Eos % (Auto) 3.4, Baso % (Auto) 0.6, Absolute Neuts (auto) 7.2, Absolute Lymphs (auto) 2.25, Nucleated RBC % 0, Sodium 138, Potassium 4.7, Chloride 101, Carbon Dioxide 23.5, Anion Gap 14, BUN 29 H, Creatinine 1.25 H, E stim Creat Clear Calc 34.38 L, Est GFR (MDRD) Non-Af 44 L, BUN/Creatinine Ratio 23.0 H, Glucose 89, Calcium 9.9, Total Bilirubin 0.50, Direct Bilirubin 0.13, A ST 38 H, ALT 19, Alkaline Phosphatase 46, Total Protein 6.9, Albumin 3.9, Globulin 3.0 08/25/24 20:53: PT 13.8, INR 1.0, APTT 25.4 08/25/24 21:51: Urine Color Yellow, Urine Clarity Cloudy, Urine pH 7.0, Ur Specific [place] 1.005, Urine Protein TNP, Urine Glucose (UA) Normal, Urine Ketones 5 H, Urine Occult Blood 25 H, Urine Nitrite Negative, Urine Bilirubin Negative, Urine Urobilinogen Normal, Ur Leukocyte Esterase 500 H, Urine RBC 0-5 SEEN, Urine WBC 10-25 SEEN, Ur Squamous Epith Cells 0-5 SEEN, Urine Bacteria RARE, Urine Mucus 0 SEEN, U Random Total Protein 16.1 H Imaging Radiology Impression Brain CT 08/25/24 20:12 IMPRESSION: No acute intracranial abnormality. Postoperative changes as described above. Chronic microvascular ischemia and involutional changes. [facility] CT 08/25/24 20:12 IMPRESSION: NO ACUTE CERVICAL FRACTURE. DEGENERATIVE CHANGES. Reading Location: [id number] Chest/Abdomen/Pelvis CT 08/25/24 20:12 IMPRESSION: 1. No acute findings in the chest, abdomen and pelvis. 2. Mild descending and sigmoid colon wall thickening, suggestive of underlying infectious colitis. 3. Other findings as described above. Reading [facility] Assessment & Plan Assessment/Plan (1) Adult failure to thrive: (2) Multiple falls: PLAN: Plan The patient is a 79 y/o F w/ PMHx: CKD stage III unclear subtype per GFR trending, HTN, Diabetes mellitus type II, History of cerebral aneurysm with spontaneous rupture with intraventricular hemorrhage, subarachnoid hemorrhage s/p coiling and craniotomy, Hx infiltrating ductal carcinoma of the left breast, Anxiety and Depression, GERD who presents to [facility] ED on 08/25/2024 with history of significant fall history with at least 7 falls over the last 1 and half weeks with chart documented history of delusional disorder with family reporting intermittent increased confusion with recent fall on day of presentation prompting her to eventually be able to call her daughter noting to her specifically that she was having some difficulty getting herself up and requested assistance prompting her daughter to call EMS to transition her to the ED for evaluation. #1. Frequent mechanical falls, unsafe to return to home given high risk of injury, adult failure to thrive: Will admit to medical surgical floor, maintain on fall precautions, total creatinine kinase has been requested given unclear downtime with her serial falls over the last 2 weeks, will judiciously hydrate as needed, PT/OT/case management consult for discharge planning, likely will need skilled facility but from discussion suspect patient may be resistance but certainly is high risk to return to home and family is eager for her to be placed. #2. History of cerebral aneurysm with spontaneous rupture with intraventricular hemorrhage, subarachnoid hemorrhage: Status post previous coiling of her cerebral aneurysm, noted also craniotomy, currently on baby aspirin only, encourage continued outpatient follow-up with neurology as previously arranged. #3. Chronic Kidney Disease Stage III, unclear subtype per GFR trending: Admission BUN/Cr 29/1.25, GFR 44, baseline renal function 1.05 most recently however this was in 2021 thus suspect some progression, repeat BMP in AM to further elucidate chronicity. #4. Chart reported history of obstructive hydrocephalus: CT head with no acute intracranial findings with postoperative changes, chronic microvascular ischemia and involutional changes, encourage continued outpatient follow-up with neurology as previously arranged, unfortunately could certainly contribute to increased falls. #5. Diabetes mellitus type II: Hold oral home regimen, hold oral regimen, maintain on ADA diet, accu checks w/ ISS. #6. Hypertension: Continue home regimen including losartan with hold parameters as needed, PRN hydralazine. #7. History of breast cancer: Patient with previous history of infiltrating ductal carcinoma of the left breast status postlumpectomy, currently considered remission, continue home letrozole regimen, encouraged follow-up outpatient as previously arranged. #8. Anxiety and depression, delusional disorder: Will continue nightly nortriptyline regimen. Delusional disorder noted in chart history but unclear exact extent and previous workup. #9. GERD: Not on the regimen per current list, will have as needed Mylanta. #10. DVT prophylaxis: SCDs, defer chemoprophylaxis given spontaneous aneurysmal previous rupture and intravascular hemorrhage. #11. CODE status: Patient CELSO is her eldest daughter Sade and living will is she believes in place. Discussed CODE status at length including difference between FULL code, DNR-CCA and DNR-CC status. Following discussions about the differences in these status, requested Full Code status. Advanced Care Planning Face to Face Time: 16 minutes. Charges/Coding Visit Charges Inpatient E&M: 33048 Init Hosp L2 Procedures Hospitalists Procedures: 24746 Advncd Care Plan 30 Min
[2024-08-26] VITALS (9 sets, daily range): BP systolic 113–150; BP diastolic 73–90; PULSE 72–96; RESP 16–18; TEMP 36.1–37.2; O2SAT 95–100; BMI 26.2
[2024-08-26 00:57] LABS: CPK Total, Creatine Kinase 150 U/L (24-195)
[2024-08-26] MEDS: 0.9% Normal Saline (1000mL) 1,000 ML 100 ML IV (01:27)
[2024-08-26] MEDS: 0.9% Saline Lock 10 ML Syringe IV (01:27)
[2024-08-26 06:46] LABS: Bedside Glucose 126 mg/dL (74-106)
[2024-08-26 07:01] LABS: Absolute Lymphocyte Count 1.46 X10^3/uL (0.83-4.51); Absolute Neutrophil Count 3.6 X10^3/uL (2.0-7.7); Basophil# 0.05 X10^3/uL; Basophil% 0.8 % (0-1); Eosinophil# 0.43 X10^3/uL; Hematocrit 34.6 % (37-47); Hemoglobin 11.6 g/dL (12.0-15.0); Lymphocyte # 1.46 X10^3/ul (0.83-4.51); Lymphocyte % 23.8 % (19-41); Mean Corp Hgb Conc 33.5 g/dL (32-36); Mean Corpuscular Hgb 30.6 pg (27.0-32.0); Mean Corpuscular Volume 91.3 fL (81-99); Mean Platelet Vol. 8.1 fl (6.2-12.0); Monocyte# 0.57 X10^3/uL; Monocyte% 9.3 % (0-10); NRBC Flagged by Analyzer 0 % (0-5); Neutrophil % 58.6 % (47-70); Platelet Count 279 K/mm3 (150-450); RBC Distribution Width CV 12.5 % (11.6-14.6); RBC Distribution Width SD 41.5 fl (35.1-43.9); Red Blood Count 3.79 M/mm3 (4.2-5.4); White Blood Count 6.1 K/mm3 (4.4-11.0)
[2024-08-26 07:52] LABS: ALB/GLOB Ratio 1.3 RATIO (0.9-2.4); AST(SGOT) 27 U/L (<=31); Alanine Aminotransfer ALT/SGPT 16 U/L (<=34); Albumin, Serum 3.2 g/dL (3.4-4.8); Alkaline Phosphatase 38 U/L (35-104); Anion Gap 10 (5-15); BUN 24 mg/dL (4-19); BUN/Creat Ratio 24.4 RATIO (10-20); Calcium,Total 8.4 mg/dL (7.6-11.0); Carbon Dioxide 20.8 mmol/L (21.0-32.0); Chloride 106 mmol/L (98-108); EST Glomerular Filtration Rate 58 (>60); Estimated Creatinine Clearance 42.72 ml/min (50-250); Globulin 2.4 g/dL (2.2-4.2); Glucose 116 mg/dL (70-99); Potassium 3.9 mmol/L (3.3-5.1); Protein, Total 5.6 g/dL (5.9-8.4); Sodium Level 137 mmol/L (133-145); Total Bilirubin 0.34 mg/dL (0.00-1.30)
[2024-08-26] MEDS: Losartan Potassium 50 MG Tablet PO (08:55)
[2024-08-26] MEDS: Aspirin E.C. 81 MG Tablet PO (08:55)
[2024-08-26] MEDS: Menthol/Lanolin/Calamine/Znox 113 GM Tube 1 APPLIC TOPICAL (08:56)
--- NOTE | 2024-08-26 10:24 | PCM.PN.HOSP ---
Reason for Visit Reason for Visit: Diagnoses Repeated falls (08/25/24) Adult failure to thrive (08/25/24) Subjective Subjective Saw patient at bedside this morning. Patient was sitting up comfortably in bed, conversing normally and in no acute distress. She appeared to have good energy levels morning. Stated that she does feel improved from an energy standpoint today compared to yesterday. Has not worked with therapy yet today and has not got out of bed. She denies any acute pain or discomfort currently. No other acute concerns this morning. Objective Data Objective Data Vital Signs: Vital Signs Temp Pulse Resp BP Pulse Ox O2 Del Method 98.6 F 83 18 135/76 H 95 Room Air 08/26/24 08:47 08/26/24 08:47 08/26/24 08:47 08/26/24 08:47 08/26/24 08:47 08/26/24 08:47 Oxygen Delivery Method Room Air Weight: 67.3 kg Body Mass Index (BMI) 26.2 Intake & Output: Intake and Output for Last 24 Hours 08/24/24 08/25/24 08/26/24 23:59 23:59 23:59 Intake Total 1050 / 1050 Balance 1050 / 1050 Lab / Micro Data 08/26/24 06:53 08/26/24 06:53 Labs: Laboratory Results - last 24 hr 08/25/24 19:50: WBC 10.8, RBC 4.32, Hgb 13.3, Hct 39.4, MCV 91.2, MCH 30.8, MCHC 33.8, RDW Std Deviation 41.2, RDW Coeff of Meño 12.4, Plt Count 341, MPV 8.8, Immature Gran % (Auto) 0.500, Neut % (Auto) 66.5, Lymph % (Auto) 20.8, [place] % (Auto) 8.2, Eos % (Auto) 3.4, Baso % (Auto) 0.6, Absolute Neuts (auto) 7.2, Absolute Lymphs (auto) 2.25, Nucleated RBC % 0, Sodium 138, Potassium 4.7, Chloride 101, Carbon Dioxide 23.5, Anion Gap 14, BUN 29 H, Creatinine 1.25 H, Estim Creat Clear Calc 34.38 L, Est GFR (MDRD) Non-Af 44 L, BUN/Creatinine Ratio 23.0 H, Glucose 89, Calcium 9.9, Total Bilirubin 0.50, Direct Bilirubin 0.13, AST 38 H, ALT 19, Alkaline Phosphatase 46, Total Creatine Kinase 150, Total Protein 6.9, Albumin 3.9, Globulin 3.0 08/25/24 20:53: PT 13.8, INR 1.0, APTT 25.4 08/25/24 21:51: Urine Color Yellow, Urine Clarity Cloudy, Urine pH 7.0, Ur Specific [place] 1.005, Urine Protein TNP, Urine Glucose (UA) Normal, Urine Ketones 5 H, Urine Occult Blood 25 H, Urine Nitrite Negative, Urine Bilirubin Negative, Urine Urobilinogen Normal, Ur Leukocyte Esterase 500 H, Urine RBC 0-5 SEEN, Urine WBC 10-25 SEEN, Ur Squamous Epith Cells 0-5 SEEN, Urine Bacteria RARE, Urine Mucus 0 SEEN, U Random Total Protein 16.1 H 08/26/24 06:04: POC Glucose 126 H 08/26/24 06:53: WBC 6.1, RBC 3.79 L, Hgb 11.6 L, Hct 34.6 L, MCV 91.3, MCH 30.6, MCHC 33.5, RDW Std Deviation 41.5, RDW Coeff of Meño 12.5, Plt Count 279, MPV 8.1, Immature Gran % (Auto) 0.500, Neut % (Auto) 58.6, Lymph % (Auto) 23.8, [place] % (Auto) 9.3, Eos % (Auto) 7.0 H, Baso % (Auto) 0.8, Absolute Neuts (auto) 3.6, Absolute Lymphs (auto) 1.46, Nucleated RBC % 0, Sodium 137, Potassium 3.9, Chloride 106, Carbon Dioxide 20.8 L, Anion Gap 10, BUN 24 H, Creatinine 1.00, Estim Creat Clear Calc 42.72 L, Est GFR (MDRD) Non-Af 58 L, BUN/Creatinine Ratio 24.4 H, Glucose 116 H, Calcium 8.4, Total Bilirubin 0.34, AST 27, ALT 16, Alkaline Phosphatase 38, Total Protein 5.6 L, Albumin 3.2 L, Globulin 2.4, Albumin/Globulin Ratio 1.3 Radiography Diagnostic Testing: Radiology Impression Brain CT 08/25/24 20:12 IMPRESSION: No acute intracranial abnormality. Postoperative changes as described above. Chronic microvascular ischemia and involutional changes. [facility] Sp[facility] CT 08/25/24 20:12 IMPRESSION: NO ACUTE CERVICAL FRACTURE. DEGENERATIVE CHANGES. Reading Location: [id number] Chest/Abdomen/Pelvis CT 08/25/24 20:12 IMPRESSION: 1. No acute findings in the chest, abdomen and pelvis. 2. Mild descending and sigmoid colon wall thickening, suggestive of underlying infectious colitis. 3. Other findings as described above. Reading [facility] Physical Exam Const alert, oriented x3, no apparent distress and average body habitus Constitutional Narrative: Elderly female, sitting up comfortably in bed, conversing normally, in no acute distress. General Appearance: cooperative and comfortable HEENT normocephalic, head/scalp atraumatic, hearing grossly normal bilaterally, nasal mucous membranes and turbinates normal and moist oral mucous membranes Eyes PERRL, EOMs intact bilaterally and conjunctivae normal Neck full ROM Chest inspection of chest normal Resp normal respiratory effort, normal air movement, no use of accessory muscles and clear to auscultation bilaterally Cardio regular rate, regular rhythm, no murmurs and peripheral pulses 2+ throughout GI normal to inspection, nondistended, normoactive bowel sounds, soft to palpation, non-tender and non-distended Back/Spine normal ROM Extremity normal to inspection, full ROM and no pedal edema Skin no rashes or lesions noted Neuro oriented x3, moves all extremities and no focal motor deficits Neuro Narrative: Generalized weakness noted. Speech: speech normal Psych mental status grossly normal Assessment & Plan Assessment/Plan (1) Physical debility: (2) Multiple falls: PLAN: Plan Patient is a 79-year-old female who presented to [facility] ED on 08/25/2024 with several recent falls at home and worsening weakness. 1. Acute on chronic debility with frequent mechanical falls ? PT/OT/case management following. Has reportedly had at least 7 mechanical falls at home over the past 1 to 2 weeks. Lives at home alone. CT brain and C-spine unremarkable. CT chest abdomen pelvis with IV contrast with mild descending and sigmoid wall thickening concerning for underlying infectious colitis, though patient denied any diarrhea recently. Patient feeling improved from energy standpoint on hospital day 2 after IV fluid resuscitation. Awaiting therapy recommendations; suspect patient will need SNF placement on discharge. 2. Mild creatinine elevation ? Creatinine 1.25 on admit, baseline around 1.0. Improved back to baseline on hospital day 2 with IV fluid resuscitation. Chronic medical conditions: ? Hypertension: Continue home losartan. ? Anxiety/depression/delusional disorder: Continue home nortriptyline at night. ? Type 2 diabetes mellitus: Hold home metformin. Treating with sliding scale insulin with meals while inpatient, adjust as needed. ? History of breast cancer: History of infiltrating ductal carcinoma of left breast s/p lumpectomy. Continue home letrozole. ? History of cerebral aneurysm with spontaneous rupture and IVH s/p coiling and prior craniotomy DVT prophylaxis: Lovenox CODE STATUS: Full code, verified Expected disposition: Likely SNF, medically ready for discharge on 08/26, awaiting placement Total clinical time spent by myself addressing the patient's medical issues, reviewing all the data, and collaborating with patient's care team: 35 minutes. Charges/Coding Visit Charges Inpatient E&M: 76563 Subs Hosp L2
--- NOTE | 2024-08-26 11:23 | NURSING ---
Called returned to taylor Carranza. This nurse provided update on current status and POC.
[2024-08-26 12:16] LABS: Bedside Glucose 145 mg/dL (74-106)
--- NOTE | 2024-08-26 13:19 | CASEMGMT ---
Discharge Planning A list of?SNF providers including quality and resource use data and consistent with the patient's preferred geographic region, medical needs, and insurance network was created in [employer] Guide.? This list was provided to the SW. Sujata Toth Discharge Planning Asst.
[2024-08-26] MEDS: CLARIFY ORDER 1 EACH NOTE (13:54)
--- NOTE | 2024-08-26 14:10 | CASEMGMT ---
Social Work- SW met with pt to discuss discharge planning. SW introduced self and role; pt agreeable to meeting. SW reviewed pt therapy; pt reports that she has had LOB balance for awhile. Pt reports that her daughter brought her to the hospital last night, but was uncertain why. Pt reports that her dtr brought her to the back room at the back of the hospital. Pt reports that her dtr Sade is having surgery here at the hospital today for her throat; pt reported it is the 4th surgery on her dtr throat and her dtr has been very stressed about the surgery. SW asked where pt children lives. Pt reported [place], [place], and [place]. Pt reports son, Gagan, is in [place] currently on vacation. Pt reports that she and dtr previously went to therapy referencing counseling. SW again explained physical and occupational therapy. Pt again returned to speaking about counseling therapy and asked if pt dtr would need to come to therapy with her. SW explained that it would be physical therapy for just pt. Pt continued to express confusion and flight of ideas. SW attempted to call pt dtr Sade, voicemail full. SW will continue to follow. THEA Mott
--- NOTE | 2024-08-26 14:35 | CASEMGMT ---
LAURITA ZULUAGA notified by SW that pt has confusion. Pt dtr vm full. SW attempting to reach dtr, when she is able to be reached, LAURITA ZULUAGA to complete assessment.
--- NOTE | 2024-08-26 15:43 | CASEMGMT ---
Social Work- SW called Sade, pt dtr and POA. SW again received a message that voicemail is full. SW called pt dtr Dillon to confirm correct contact information for Sade. Dillon confirmed correct contact information. Dillon reports that Sade did have a dental procedure then a meeting for work following and would be unavailable today; Dillon will update Sade that SW will follow up tomorrow. Dillon reports that she and Sade have been working on terminal makeup operator care plans for pt and looking at [facility] and [facility]. Dillon reports that they would like SNF referrals to both facilities. SW will follow up with Sade tomorrow when she is available. SW notified [facility] of referral request. THEA Mott
[2024-08-26 16:48] LABS: Bedside Glucose 116 mg/dL (74-106)
[2024-08-26] MEDS: MELATONIN 3 MG TABLET PO (20:55)
[2024-08-26] MEDS: Acetaminophen 325 MG Tablet 650 MG PO (20:55)
[2024-08-26] MEDS: Nortriptyline 25 MG Capsule 100 MG PO (21:03)
[2024-08-26 21:25] LABS: Bedside Glucose 167 mg/dL (74-106)
--- NOTE | 2024-08-26 22:05 | NURSING ---
Pt confused and climbing out of bed, bed alarm activated. Pt restless, uncooperative, c/o nausea but refusing interventions. BP 113/79 RR 24. Shaking and unsteady. Last BG 167: Pt refused SSI 1 unit. Assistance provided to sitting in Leslie Chair in nurses station. Not able to easily redirect and reorient. Appears to be in an acute panic state. Support and education provided with little to no positive results noted. Currently seated in Leslie Chair at nurses station, with continuous complaints, yet refusing all interventions.
[2024-08-26] MEDS: Ondansetron 4 MG/2 ML Vial IV (22:18)
--- NOTE | 2024-08-26 23:33 | NURSING ---
Pt has calmed. Remains seated in Leslie-Chair at nurses station. Continues to deny Chest pain, SOB. Nausea appears to have subsided, no longer having dry heaves. Denies desire to return to room, or to go to bed. Support and education provided. No additional needs or concerns verbalized or identified.
[2024-08-27 01:38] VITALS: BMI 26.2
[2024-08-27 06:37] LABS: Bedside Glucose 125 mg/dL (74-106)
[2024-08-27 07:39] VITALS: O2SAT 95
[2024-08-27] MEDS: Aspirin E.C. 81 MG Tablet PO (08:01)
[2024-08-27] MEDS: Losartan Potassium 50 MG Tablet PO (08:01)
[2024-08-27 08:39] VITALS: BP 135/81; PULSE 81; RESP 16; TEMP 36.8; O2SAT 97
--- NOTE | 2024-08-27 10:03 | CASEMGMT ---
Addendum entered by Sujata Toth 08/27/24 11:45: [facility] has accepted. SW updated. FOC is [facility] and they will submit for precert. Requested wknd phone/fax. Sujaat Toth DC Planning Asst. Addendum entered by Sujata Toth 08/27/24 10:46: [facility] has accepted. SW updated. Sujata Toth DC Planning Asst. Original Note: Discharge Planning Referral sent to [facility] and [facility]. Sujata Toth DC Planning Asst.
--- NOTE | 2024-08-27 10:42 | PN.HOSP_ITS ---
Reason for Visit Reason for Visit: Diagnoses Repeated falls (08/25/24) Other malaise (08/25/24) Adult failure to thrive (08/25/24) Subjective Subjective Saw patient at bedside this morning. Patient was laying back comfortably in bed and in no acute distress. Patient was alert and oriented x 3 but on further conversation, she did not give much information on her falls at home and did not appear to be sure as to why she is in the hospital. Suspect patient may have some degree of dementia at baseline contributing to her overall condition. Otherwise no new concerns this morning. Objective Data Objective Data Vital Signs: Vital Signs Temp Pulse Resp BP Pulse Ox O2 Del Method 98.2 F 81 16 135/81 H 97 Room Air 08/27/24 08:39 08/27/24 08:39 08/27/24 08:39 08/27/24 08:39 08/27/24 08:39 08/27/24 08:39 Oxygen Delivery Method Room Air Weight: 67.3 kg Body Mass Index (BMI) 26.2 Intake & Output: Intake and Output for Last 24 Hours 08/25/24 08/26/24 08/27/24 23:59 23:59 23:59 Intake Total 1050 / 1050 1520 / 1520 50 / 50 Balance 1050 / 1050 1520 / 1520 50 / 50 Lab / Micro Data 08/26/24 06:53 08/26/24 06:53 Labs: Laboratory Results - last 24 hr 08/26/24 11:59: POC Glucose 145 H 08/26/24 16:27: POC Glucose 116 H 08/26/24 21:03: POC Glucose 167 H 08/27/24 06:20: POC Glucose 125 H Physical Exam Const alert, oriented x3, no apparent distress and average body habitus Constitutional Narrative: Elderly female, sitting up comfortably in bed, conversing normally, in no acute distress. General Appearance: cooperative and comfortable HEENT normocephalic, head/scalp atraumatic, hearing grossly normal bilaterally, nasal mucous membranes and turbinates normal and moist oral mucous membranes Eyes PERRL, EOMs intact bilaterally and conjunctivae normal Neck full ROM Chest inspection of chest normal Resp normal respiratory effort, normal air movement, no use of accessory muscles and clear to auscultation bilaterally Cardio regular rate, regular rhythm, no murmurs and peripheral pulses 2+ throughout GI normal to inspection, nondistended, normoactive bowel sounds, soft to palpation, non-tender and non-distended Back/Spine normal ROM Extremity normal to inspection, full ROM and no pedal edema Skin no rashes or lesions noted Neuro oriented x3, moves all extremities and no focal motor deficits Neuro Narrative: Generalized weakness noted. Speech: speech normal Psych mental status grossly normal Assessment & Plan Assessment/Plan (1) Physical debility: (2) Multiple falls: PLAN: Plan Patient is a 79-year-old female who presented to [facility] ED on 08/25/2024 with several recent falls at home and worsening weakness. 1. Acute on chronic debility with frequent mechanical falls ? PT/OT/case management following. Has reportedly had at least 7 mechanical falls at home over the past 1 to 2 weeks. Lives at home alone. CT brain and C- spine unremarkable. CT chest abdomen pelvis with IV contrast with mild descending and sigmoid wall thickening concerning for underlying infectious colitis, though patient denied any diarrhea recently. Patient feeling improved from energy standpoint on hospital day 2 after IV fluid resuscitation. Therapy scores borderline and plan is for discharge to SNF. Medically ready for discharge on 08/26, awaiting placement. 2. Mild creatinine elevation ? Creatinine 1.25 on admit, baseline around 1.0. Improved back to baseline on hospital day 2 with IV fluid resuscitation. 3. Suspected cognitive impairment ? Patient has been alert and oriented x 3 since admission but is a poor historian with regards to her recent history and has poor insight into her medical condition. Recommend close outpatient follow-up for further evaluation. Chronic medical conditions: ? Hypertension: Continue home losartan. ? Anxiety/depression/delusional disorder: Continue home nortriptyline at night. ? Type 2 diabetes mellitus: Hold home metformin. Treating with sliding scale insulin with meals while inpatient, adjust as needed. ? History of breast cancer: History of infiltrating ductal carcinoma of left breast s/p lumpectomy. Continue home letrozole. ? 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 Charges/Coding Visit Charges Inpatient E&M: 70641 Subs Hosp L2
[2024-08-27 11:21] LABS: Bedside Glucose 138 mg/dL (74-106)
[2024-08-27 11:34] VITALS: BP 133/82; PULSE 86; RESP 16; TEMP 36.3; O2SAT 92
--- NOTE | 2024-08-27 11:39 | CASEMGMT ---
Social Work- ADRYAN received notice that [facility] accepted referral. [facility] would like to do an onsite visit. ADRYAN called pt dtr Sade to discuss referral status. ADRYAN introduced self and role and provided education on referral process and pt therapy progress. Sade reports that she would like [facility] as FOC and agreeable to discharge plans to [facility] pending precert. Sade requesting medical updates and to speak with hospitalist. ADRYAN messaged hospitalist who reports that he will reach out. ADRYAN notified [facility] of referral acceptance. ADRYAN remains available to follow. Plan: [facility]; pend precert THEA Mott
--- NOTE | 2024-08-27 12:19 | CASEMGMT ---
Pt lives in a single story home alone. SW working with dtr who is POA for SNF placement.
--- NOTE | 2024-08-27 14:38 | CASEMGMT ---
Social Work- Discharge to [facility], under skilled level of care. ?In case of possible weekend discharge, green sheet and transport on chart for nursing to follow for final discharge arrangements/notifications to SNF, patient/family.?HENS?[id number] started; will need completed.? THEA Mott
[2024-08-27 15:25] VITALS: BP 136/73; PULSE 94; RESP 16; TEMP 36.4; O2SAT 93
[2024-08-27 15:38] LABS: Bedside Glucose 168 mg/dL (74-106)
[2024-08-27 20:10] VITALS: BP 163/83; PULSE 63; RESP 16; TEMP 36.5; O2SAT 94
[2024-08-27] MEDS: Nortriptyline 25 MG Capsule 100 MG PO (21:03)
[2024-08-27 21:25] LABS: Bedside Glucose 119 mg/dL (74-106)
[2024-08-28 02:10] VITALS: BP 132/74; PULSE 78; RESP 16; TEMP 36.6; O2SAT 94
[2024-08-28 05:47] VITALS: BMI 26.1
[2024-08-28 06:28] LABS: Bedside Glucose 121 mg/dL (74-106)
[2024-08-28 07:20] LABS: Hematocrit 37.9 % (37-47); Hemoglobin 12.6 g/dL (12.0-15.0); Mean Corp Hgb Conc 33.2 g/dL (32-36); Mean Corpuscular Hgb 30.7 pg (27.0-32.0); Mean Corpuscular Volume 92.4 fL (81-99); Mean Platelet Vol. 8.2 fl (6.2-12.0); Platelet Count 274 K/mm3 (150-450); RBC Distribution Width CV 12.5 % (11.6-14.6); RBC Distribution Width SD 42.5 fl (35.1-43.9); White Blood Count 5.8 K/mm3 (4.4-11.0)
[2024-08-28 07:38] VITALS: O2SAT 93
[2024-08-28 08:15] LABS: Anion Gap 8 (5-15); BUN 15 mg/dL (4-19); BUN/Creat Ratio 17.3 RATIO (10-20); Calcium,Total 8.7 mg/dL (7.6-11.0); Carbon Dioxide 23.2 mmol/L (21.0-32.0); Chloride 109 mmol/L (98-108); Creatinine, Serum 0.87 mg/dL (0.70-1.20); EST Glomerular Filtration Rate 68 (>60); Estimated Creatinine Clearance 48.93 ml/min (50-250); Glucose 138 mg/dL (70-99); Potassium 4.8 mmol/L (3.3-5.1); Sodium Level 140 mmol/L (133-145)
[2024-08-28 10:00] VITALS: BP 129/64; PULSE 82; RESP 18; TEMP 36.6; O2SAT 97
[2024-08-28] MEDS: Menthol/Lanolin/Calamine/Znox 113 GM Tube 1 APPLIC TOPICAL ×3 (10:06→16:26)
[2024-08-28] MEDS: Aspirin E.C. 81 MG Tablet PO (10:06)
[2024-08-28] MEDS: Losartan Potassium 50 MG Tablet PO (10:06)
--- NOTE | 2024-08-28 10:41 | PCM.PN.HOSP ---
Reason for Visit Reason for Visit: Diagnoses Repeated falls (08/25/24) Other malaise (08/25/24) Adult failure to thrive (08/25/24) Subjective Subjective Saw patient at bedside this morning. Patient notably was sitting in the hallway by the nurses station in bedside chair. She was alert and appeared similar today to previous days. She continues to show signs of cognitive impairment with answers to several questions. No other new concerns today. Objective Data Objective Data Vital Signs: Vital Signs Temp Pulse Resp BP Pulse Ox O2 Del Method 98 F 82 18 129/64 H 97 Room Air 08/28/24 10:00 08/28/24 10:00 08/28/24 10:00 08/28/24 10:00 08/28/24 10:00 08/28/24 10:00 Oxygen Delivery Method Room Air Weight: 66.8 kg Body Mass Index (BMI) 26.1 Intake & Output: Intake and Output for Last 24 Hours 08/26/24 08/27/24 08/28/24 23:59 23:59 23:59 Intake Total 1520 / 1520 700 / 700 Balance 1520 / 1520 700 / 700 Lab / Micro Data 08/28/24 07:08 08/28/24 07:08 Labs: Laboratory Results - last 24 hr 08/27/24 11:01: POC Glucose 138 H 08/27/24 15:19: POC Glucose 168 H 08/27/24 21:02: POC Glucose 119 H 08/28/24 06:11: POC Glucose 121 H 08/28/24 07:08: WBC 5.8, RBC 4.10 L, Hgb 12.6, Hct 37.9, MCV 92.4, MCH 30.7, MCHC 33.2, RDW Std Deviation 42.5, RDW Coeff of Meño 12.5, Plt Count 274, MPV 8.2, Sodium 140, Potassium 4.8, Chloride 109 H, Carbon Dioxide 23.2, Anion Gap 8, BUN 15, Creatinine 0.87, Estim Creat Clear Calc 48.93 L, Est GFR (MDRD) Non-Af 68, BUN/Creatinine Ratio 17.3, Glucose 138 H, Calcium 8.7 Micro: Microbiology 08/25/24 22:45 Urine, Clean Catch Urine Culture - Preliminary Gram negative reba Physical Exam Const alert, oriented x3, no apparent distress and average body habitus Constitutional Narrative: Elderly female, A&Ox3 but with poor insight into medical condition concerning for cognitive impairment, otherwise sitting up comfortably in bedside chair, conversing normally, in no acute distress. General Appearance: cooperative and comfortable HEENT normocephalic, head/scalp atraumatic, hearing grossly normal bilaterally, nasal mucous membranes and turbinates normal and moist oral mucous membranes Eyes PERRL, EOMs intact bilaterally and conjunctivae normal Neck full ROM Chest inspection of chest normal Resp normal respiratory effort, normal air movement, no use of accessory muscles and clear to auscultation bilaterally Cardio regular rate, regular rhythm, no murmurs and peripheral pulses 2+ throughout GI normal to inspection, nondistended, normoactive bowel sounds, soft to palpation, non-tender and non-distended Back/Spine normal ROM Extremity normal to inspection, full ROM and no pedal edema Skin no rashes or lesions noted Neuro oriented x3, moves all extremities and no focal motor deficits Neuro Narrative: Generalized weakness noted. Speech: speech normal Psych mental status grossly normal Assessment & Plan Assessment/Plan (1) Physical debility: (2) Multiple falls: PLAN: Plan Patient is a 79-year-old female who presented to [facility] ED on 08/25/2024 with several recent falls at home and worsening weakness. 1. Acute on chronic debility with frequent mechanical falls ? PT/OT/case management following. Has reportedly had at least 7 mechanical falls at home over the past 1 to 2 weeks. Lives at home alone. CT brain and C-spine unremarkable. CT chest abdomen pelvis with IV contrast with mild descending and sigmoid wall thickening concerning for underlying infectious colitis, though patient denied any diarrhea recently. Patient feeling improved from energy standpoint on hospital day 2 after IV fluid resuscitation. Therapy scores borderline and plan is for discharge to SNF. Medically ready for discharge on 08/26 and accepted to [facility], awaiting pre-CERT. 2. Mild creatinine elevation ? Creatinine 1.25 on admit, baseline around 1.0. Improved back to baseline on hospital day 2 with IV fluid resuscitation. 3. Suspected cognitive impairment ? Patient has been alert and oriented x 3 since admission but is a poor historian with regards to her recent history and has poor insight into her medical condition. Recommend close outpatient follow-up for further evaluation. Chronic medical conditions: ? Hypertension: Continue home losartan. ? Anxiety/depression/delusional disorder: Continue home nortriptyline at night. ? Type 2 diabetes mellitus: Hold home metformin. Treating with sliding scale insulin with meals while inpatient, adjust as needed. ? History of breast cancer: History of infiltrating ductal carcinoma of left breast s/p lumpectomy. Continue home letrozole. ? 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 Charges/Coding Visit Charges Inpatient E&M: 55346 Subs Hosp L2
--- NOTE | 2024-08-28 11:40 | CASEMGMT ---
Social Work SW has checked [employer] twice, no precert yet attained for pt to go to SNF. PIPER Santana
[2024-08-28 12:19] LABS: Bedside Glucose 106 mg/dL (74-106)
[2024-08-28 14:49] VITALS: BP 132/76; PULSE 80; RESP 18; TEMP 36.3; O2SAT 98
[2024-08-28 16:35] LABS: Bedside Glucose 151 mg/dL (74-106)
[2024-08-28 20:47] VITALS: BP 147/82; PULSE 83; RESP 15; TEMP 36.8; O2SAT 100
[2024-08-28] MEDS: Nortriptyline 25 MG Capsule 100 MG PO (20:54)
[2024-08-28 22:32] LABS: Bedside Glucose 142 mg/dL (74-106)
--- NOTE | 2024-08-29 00:01 | PCM.HOSP.N ---
Hospitalist Note Patient with agitation, attempting to call the police. Does have underlying delusions baseline. Will administer low dose seroquel x 1.
[2024-08-29] MEDS: Haloperidol Lactate 5 MG/ML Vial 1 MG IV (00:26)
--- NOTE | 2024-08-29 00:47 | NURSING ---
0000: bed exit alarming. went into assist patient. patient was combative and agitated resisting any assistance to go back to bed or the bathroom. obtained order for seroquel po from dr. cohen. pt would not take it. obtained order from dr cohen for iv haldol 1 mg. medication given and pt assisted to bathroom per request and then back to bed. will continue monitor. sercurity at bedside
[2024-08-29 04:31] VITALS: BP 169/70; PULSE 84; RESP 15; TEMP 36.6; O2SAT 97
[2024-08-29 06:00] VITALS: BMI 26.4
[2024-08-29 07:26] LABS: Bedside Glucose 120 mg/dL (74-106)
[2024-08-29 08:50] VITALS: BP 125/81; PULSE 90; RESP 16; TEMP 37.1; O2SAT 98
--- NOTE | 2024-08-29 09:35 | PCM.PN.HOSP ---
Reason for Visit Reason for Visit: Diagnoses Repeated falls (08/25/24) Other malaise (08/25/24) Adult failure to thrive (08/25/24) Subjective Subjective Saw patient this morning. Patient was sitting up comfortably in bedside chair. She appeared somewhat agitated this morning and was stating that she was tired of being in the hospital and wanted to leave as soon as she was able to. Per nursing staff, patient was quite agitated overnight and required a dose of IM Haldol for this. Is suspected that patient has underlying dementia with behavioral disturbances and will be started on Seroquel today. No other new concerns today. Objective Data Objective Data Vital Signs: Vital Signs Temp Pulse Resp BP Pulse Ox O2 Del Method 98.7 F 90 16 125/81 H 98 Room Air 08/29/24 08:50 08/29/24 08:50 08/29/24 08:50 08/29/24 08:50 08/29/24 08:50 08/29/24 08:51 Oxygen Delivery Method Room Air Weight: 67.755 kg Body Mass Index (BMI) 26.4 Intake & Output: Intake and Output for Last 24 Hours 08/27/24 08/28/24 08/29/24 23:59 23:59 23:59 Intake Total 700 / 700 850 / 850 Balance 700 / 700 850 / 850 Lab / Micro Data 08/28/24 07:08 08/28/24 07:08 Labs: Laboratory Results - last 24 hr 08/28/24 12:01: POC Glucose 106 08/28/24 16:16: POC Glucose 151 H 08/28/24 22:11: POC Glucose 142 H 08/29/24 06:39: POC Glucose 120 H Micro: Microbiology 08/25/24 22:45 Urine, Clean Catch Urine Culture - Final Proteus mirabilis Physical Exam Const alert, oriented x3, no apparent distress and average body habitus Constitutional Narrative: Elderly female, A&Ox3 but with poor insight into medical condition concerning for cognitive impairment, somewhat more agitated this morning than previous days, otherwise sitting up comfortably in bedside chair and answering questions appropriately. General Appearance: cooperative and comfortable HEENT normocephalic, head/scalp atraumatic, hearing grossly normal bilaterally, nasal mucous membranes and turbinates normal and moist oral mucous membranes Eyes PERRL, EOMs intact bilaterally and conjunctivae normal Neck full ROM Chest inspection of chest normal Resp normal respiratory effort, normal air movement, no use of accessory muscles and clear to auscultation bilaterally Cardio regular rate, regular rhythm, no murmurs and peripheral pulses 2+ throughout GI normal to inspection, nondistended, normoactive bowel sounds, soft to palpation, non-tender and non-distended Back/Spine normal ROM Extremity normal to inspection, full ROM and no pedal edema Skin no rashes or lesions noted Neuro oriented x3, moves all extremities and no focal motor deficits Neuro Narrative: Generalized weakness noted. Speech: speech normal Assessment & Plan Assessment/Plan (1) Physical debility: (2) Multiple falls: PLAN: Plan Patient is a 79-year-old female who presented to [facility] ED on 08/25/2024 with several recent falls at home and worsening weakness. 1. Acute on chronic debility with frequent mechanical falls ? PT/OT/case management following. Has reportedly had at least 7 mechanical falls at home over the past 1 to 2 weeks. Lives at home alone. CT brain and C-spine unremarkable. CT chest abdomen pelvis with IV contrast with mild descending and sigmoid wall thickening concerning for underlying infectious colitis, though patient denied any diarrhea recently. Patient feeling improved from energy standpoint on hospital day 2 after IV fluid resuscitation. Therapy scores borderline and plan is for discharge to SNF. Medically ready for discharge on 08/26 and accepted to [facility], awaiting pre-CERT. 2. Mild creatinine elevation ? Creatinine 1.25 on admit, baseline around 1.0. Improved back to baseline on hospital day 2 with IV fluid resuscitation. 3. Suspected dementia with behavioral disturbances ? Patient has been alert and oriented x 3 since admission but is a poor historian with regards to her recent history and has poor insight into her medical condition. She became agitated on the evening of 08/28 and required a dose of IM Haldol for this. Remains somewhat agitated on the morning of 08/29. Will start Seroquel 25 mg twice daily and monitor response. Recommend close outpatient follow-up with PCP or geriatric medicine for further evaluation. Chronic medical conditions: ? Hypertension: Continue home losartan. ? Anxiety/depression/delusional disorder: Continue home nortriptyline at night. ? Type 2 diabetes mellitus: Hold home metformin. Treating with sliding scale insulin with meals while inpatient, adjust as needed. ? History of breast cancer: History of infiltrating ductal carcinoma of left breast s/p lumpectomy. Continue home letrozole. ? 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 Charges/Coding Visit Charges Inpatient E&M: 91396 Subs Hosp L2
[2024-08-29] MEDS: Aspirin E.C. 81 MG Tablet PO (10:17)
[2024-08-29] MEDS: QUEtiapine 25 MG Tablet PO (10:17)
[2024-08-29] MEDS: Losartan Potassium 50 MG Tablet PO (10:18)
[2024-08-29 12:22] LABS: Bedside Glucose 131 mg/dL (74-106)
[2024-08-29 16:00] VITALS: BP 136/84; PULSE 80; RESP 16; TEMP 36.9; O2SAT 98
[2024-08-29 17:02] LABS: Bedside Glucose 132 mg/dL (74-106)
[2024-08-29 20:14] VITALS: BP 142/86; PULSE 90; RESP 15; TEMP 36.8; O2SAT 98
--- NOTE | 2024-08-29 23:39 | NURSING ---
2030: pt sitting in recliner. denies c/o. vs obtained. pt refusing scheduled hs meds. will attempt later. no s/s of distress noted.
--- NOTE | 2024-08-29 23:40 | NURSING ---
2200: pt refused accu check and scheduled hs meds at this time. emotional support offered. will continue to monitor
[2024-08-30 06:00] VITALS: BMI 26.4
--- NOTE | 2024-08-30 07:40 | NURSING ---
pt refused nursing care tonight and this am. pt currently sitting in the recliner with no s/s of distress noted. pt denies needs at this time. chair alarm on.
[2024-08-30 08:02] LABS: Hematocrit 41.9 % (37-47); Hemoglobin 13.8 g/dL (12.0-15.0); Mean Corp Hgb Conc 32.9 g/dL (32-36); Mean Corpuscular Hgb 30.3 pg (27.0-32.0); Mean Corpuscular Volume 91.9 fL (81-99); Mean Platelet Vol. 8.2 fl (6.2-12.0); Platelet Count 325 K/mm3 (150-450); RBC Distribution Width CV 12.6 % (11.6-14.6); RBC Distribution Width SD 42.5 fl (35.1-43.9); Red Blood Count 4.56 M/mm3 (4.2-5.4); White Blood Count 6.6 K/mm3 (4.4-11.0)
[2024-08-30] MEDS: Losartan Potassium 50 MG Tablet PO (08:14)
[2024-08-30] MEDS: Aspirin E.C. 81 MG Tablet PO (08:14)
[2024-08-30] MEDS: QUEtiapine 25 MG Tablet PO (08:15)
--- NOTE | 2024-08-30 08:28 | PCM.PN.HOSP ---
Reason for Visit Reason for Visit: Diagnoses Repeated falls (08/25/24) Other malaise (08/25/24) Adult failure to thrive (08/25/24) Subjective Subjective Still with agitation. Objective Data Objective Data Vital Signs: Vital Signs Temp Pulse Resp BP Pulse Ox O2 Del Method 36.8 C 90 15 142/86 H 98 Room Air 08/29/24 20:14 08/29/24 20:14 08/29/24 20:14 08/29/24 20:14 08/29/24 20:14 08/29/24 20:30 Oxygen Delivery Method Room Air Weight: 67.5 kg Body Mass Index (BMI) 26.4 Intake & Output: Intake and Output for Last 24 Hours 08/28/24 08/29/24 08/30/24 23:59 23:59 23:59 Intake Total 850 / 850 1500 / 1500 Balance 850 / 850 1500 / 1500 Lab / Micro Data 08/30/24 07:39 08/30/24 07:39 Labs: Laboratory Results - last 24 hr 08/29/24 12:03: POC Glucose 131 H 08/29/24 16:44: POC Glucose 132 H 08/30/24 07:39: WBC 6.6, RBC 4.56, Hgb 13.8, Hct 41.9, MCV 91.9, MCH 30.3, MCHC 32.9, RDW Std Deviation 42.5, RDW Coeff of Meño 12.6, Plt Count 325, MPV 8.2 Micro: Microbiology 08/25/24 22:45 Urine, Clean Catch Urine Culture - Final Proteus mirabilis Physical Exam Const alert and no apparent distress HEENT head/scalp atraumatic and moist oral mucous membranes Resp normal respiratory effort, no retractions, no use of accessory muscles and clear to auscultation bilaterally Cardio regular rate, regular rhythm, S1 normal heart sound and S2 normal heart sound GI normal to inspection, nondistended, normoactive bowel sounds, soft to palpation, non-tender and non-distended Neuro Sensorium / Orientation: awake, alert, oriented to person, oriented to place and oriented to time Assessment & Plan Assessment/Plan (1) Adult failure to thrive: PLAN: Walks too well and therefore deemed not a candidate for SNF Pt to be discharged home. PLAN: Plan Dementia: with behavioral disturbances. required quetiapine
[2024-08-30 09:12] LABS: Anion Gap 12 (5-15); BUN 22 mg/dL (4-19); BUN/Creat Ratio 25.5 RATIO (10-20); Calcium,Total 8.9 mg/dL (7.6-11.0); Carbon Dioxide 19.7 mmol/L (21.0-32.0); Chloride 107 mmol/L (98-108); Creatinine, Serum 0.87 mg/dL (0.70-1.20); EST Glomerular Filtration Rate 68 (>60); Estimated Creatinine Clearance 49.17 ml/min (50-250); Glucose 132 mg/dL (70-99); Potassium 4.2 mmol/L (3.3-5.1); Sodium Level 138 mmol/L (133-145)
[2024-08-30 09:30] VITALS: BP 134/82; PULSE 95; RESP 17; TEMP 36.6; O2SAT 97
--- NOTE | 2024-08-30 10:21 | CASEMGMT ---
Discharge Planning Updated sent to [facility]. Sujata Toth DC Planning Astt.
--- NOTE | 2024-08-30 10:35 | CASEMGMT ---
Discharge Planning Call rec'd from [facility] with notice of intent to deny. MS3 fax and SW name requested and given to fax [id number] information to. SW updated. Sujata Toth DC Planning Asst.
--- NOTE | 2024-08-30 11:07 | NURSING ---
pt refusing to have blood sugar checked by this nurse
--- NOTE | 2024-08-30 14:04 | CASEMGMT ---
Social Work- SW met with pt, as bedside nurse reports pt to be uncooperative; pt would not stay seated, was up rummaging through her bags, reporting that she is leaving and stating that she changed her name and was going on a cruise. SW introduced self and role; pt agreeable to meet. Pt agitated with rigid body language and short speech. SW guided pt through conversation regarding pt agitation, actively and empathetically listening and providing support. SW discussed discharge planning and concerns regarding pt return home. Pt reports that she is agreeable to allowing SW continue to make plans with pt dtr. ADRYAN called pt dtr Sade to update that insurance has denied skilled stay at [facility]. SW provided extensive education on pt therapy progress, parameters that often warrant a denial for skilled stay, and alternatives of LTC [facility] or private pay vs [facility] or HHC. Sade will call sister and discuss plan moving forward. ADRYAN coordinated with physician, inquiring if pt is willing to complete cognitive assessment to determine capacity. SW provided history and highlighted documented confusion and behaviors while admitted. Physician feels pt is able to act on own accord. SW was once again called to pt room, as pt was calling a friend to leave AMA. SW again spoke with pt, listening and providing support. Pt reporting that she has not been getting her medications, expressing paranoia regarding staff and stay. Pt expressing illogical thought flow. Pt is re-directable, although remaining mildly agitated. Pt agreeable to stay until dr completes discharge. ADRYAN met with pt neighbor and friend Francis [phone]. Francis agreeable to assisting pt home once discharge is complete. Francis agreeable to leaving until that time so as to not escalate pt behavior. ADRYAN called pt dtr to provide private pay rates and continue discharge planning discussions. Sade reports they are unable to private pay at this time and would like pt to discharge with HHC and medical alert. ADRYAN called Miracle @ medical alert to discuss installation. Miracle reports the earliest to install is Friday. ADRYAN updated pt dtr. ADRYAN met with pt to discuss discharge planning. Pt is not agreeable to HHC. Pt reports that she will do her exercises and is concerned about her home being messy. SW provided education and reassurances. Pt remains steadfast that she will not accept HHC at this time. SW offered that pt can follow up with PCP if desired after discharge. Pt expressed understanding and thanked ADRYAN for the time and assistance provided. ADRYAN followed up with pt dtr; providing update that pt refusing hhc, however, services can be arranged via PCP if desired post discharge. SW updated dtr that it is recommended on discharge that pt not drive and to follow up for driving assessment. SW provided crisis hotline number and provided education on calling for in-home assessment for changes in mentation or behaviors. SW provided information on [facility]. ADRYAN called pt neighbor, Francis, to transport pt at discharge. Francis agreeable. Bedside nurse updated. ADRYAN called [facility] to complete referral. THEA Mott
--- NOTE | 2024-08-30 14:05 | CASEMGMT ---
LAURITA ZULUAGA Assessment: Face to Face with pt for initial transition planning/care coordination assessment. RN ZAN introduced self and role at [facility], pt voices understanding and consents to assessment. Pt is A&O x3 and answers all questions appropriately at this time. Pt sitting up in chair, dressed ready to be dc'd. Care providers, pharmacy, and demographics verified/updated. Admitting Dx: serial falls, adult FTT Strata Score: 3 PCP:Bernardo Specialists:Denies Preferred Pharmacy:[facility] Insurance: [facility] Prescription Benefit: yes LNOK: Tushar Pittman, son; Sade Pittman, dtr Living Arrangements: Pt lives alone in a single story home with a small step to enter. Pt reports she is I in ADL/IADLs and denies concerns at home. Pt states she has someone that comes in to help her. When asked what help this person provides she states whatever I want. Pt did not name the person. Transportation: Pt drives self and denies concerns with transportation. DME:shower chair, walker, BGM with sufficient supply of strips and lancets HHC/SNF: Pt denies hx of HHC but states she has been to SNF, she believes it to be [facility]. Noted pt was in [facility] and [facility] in the past. Pt states no concerns with going home at time of dc.Pt declines any HHC or outpt therapy. Pt states I won't overdue it. Pt denies any needs at this time. Pt is aware that should she get home and change her mind, she can notify Dr. Mcwilliams. Pt verbalized understanding. Pt states no further concerns/needs. CM to follow. Advised pt to ask CM if any further questions/concerns/needs arise, voices understanding. Pt Goal: Home Plan: Home Stephanie SHAY CM
--- NOTE | 2024-08-30 14:06 | PCM.DC.SUM ---
Providers Date of Admission: 08/25/24 Primary Care Physician: Dr. Radha Chang MD Reason For Visit: SERIAL FALLS ADULT FTT Diagnosis Discharge Diagnosis (1) Adult failure to thrive: Status: Acute Code(s): R62.7 - Adult failure to thrive Plan: Walks too well and therefore deemed not a candidate for SNF Pt to be discharged home. Plan Dementia: with behavioral disturbances. required quetiapine Medications at Discharge Home Medications aspirin 81 mg tablet 81 mg PO DAILY heart health 02/02/21 letrozole 2.5 mg tablet 2.5 mg PO DAILY 08/25/24 losartan 50 mg tablet 50 mg PO DAILY 08/25/24 metformin 500 mg tablet 500 mg PO DAILY diabetes mellitus 08/25/24 nortriptyline 50 mg capsule 100 - 150 mg PO QHS 08/25/24 quetiapine 25 mg tablet 25 mg PO QHS #30 tabs 08/30/24 Hospital Course Operations None Procedures None Summary of Care Provided Minutes Spent on Discharge: 32 Hospital Course: Patient presents with falls at home. Unable to care for herself. Plan is for the patient go to group home facility but during the course of her hospitalizations patient was able to walk very effectively and safely but did have issues in regards to confusion and hallucinations. This presently, when I evaluated her on the fifth she was alert and oriented x 3. Though she could not give me specific details about why she was here she is rather vague about that but was able to say that therapy did nothing for her. The patient's son who resides in [place] was out of the country and so social work to speak with the patient's daughters and since she was walking around she well she would not qualify to go to a group home facility so the plan is for her to go home. Weight / BMI Weight Weight: 67.5 kg Body Mass Index (BMI) 26.4 ABG / Lab / Microbiology Data 08/30/24 07:39 08/30/24 07:39 Laboratory: Laboratory Results - last 24 hr 08/29/24 16:44: POC Glucose 132 H 08/30/24 07:39: WBC 6.6, RBC 4.56, Hgb 13.8, Hct 41.9, MCV 91.9, MCH 30.3, MCHC 32.9, RDW Std Deviation 42.5, RDW Coeff of Meño 12.6, Plt Count 325, MPV 8.2, Sodium 138, Potassium 4.2, Chloride 107, Carbon Dioxide 19.7 L, Anion Gap 12, BUN 22 H, Creatinine 0.87, Estim Creat Clear Calc 49.17 L, Est GFR (MDRD) Non-Af 68, BUN/Creatinine Ratio 25.5 H, Glucose 132 H, Calcium 8.9 Microbiology: Microbiology 08/25/24 22:45 Urine, Clean Catch Urine Culture - Final Proteus mirabilis D/C Instructions DC O2, CPAP, BIPAP Needs Home O2 Discharge instructions: No Meaningful Use Info Meaningful Use Meaningful Use Diagnoses (Choose all that apply): None applicable Ischemic Stroke Statin Dosing Therapy Reference: STATIN DOSE THERAPY REFERENCE: * Patients > 75 years receive moderate or high dose statin therapy. * Patients 75 years or YOUNGER should receive HIGH intensity statin dose unless contraindicated. You will be required to document reason for non-treatment if statin daily dose does not meet guidelines. HIGH DOSE STATIN THERAPY DAILY Atorvastatin > than or = to 40 mg Rosuvastatin > than or = to 20 mg Amlodipine + Atorvastatin > than or = to 2.5/40 mg Ezetimibe + Simvastatin 10/80 mg Simvastatin 80mg Discharge Plan Admission Admit Date/Time: 08/25/24 23:50 Primary Reason for Your Visit: Debility Attending Provider: Jose Mariee Primary Care Provider: Radha Chang Consulting Providers: Isabel Michelle; Veto Lynne Instructions Additional Instructions / Restrictions: No driving. If you wish to drive, I recommend that you follow-up with geriatrics for a driving assessment. Discharge Orders/Prescriptions Prescriptions: New quetiapine 25 mg Tablet 25 mg PO QHS Qty: 30 0RF Continued aspirin 81 mg Tablet 81 mg PO DAILY losartan 50 mg tablet 50 mg PO DAILY metformin 500 mg tablet 500 mg PO DAILY letrozole 2.5 mg tablet 2.5 mg PO DAILY nortriptyline 50 mg capsule 100 - 150 mg PO QHS Referrals / Follow Up: Radha Chang MD [Primary Care Provider] - Within 2 Weeks Disposition Disposition (needs filled in before D/C Order can be placed): Home, Self Care Charges/Coding Visit Charges Inpatient E&M: 61736 Disch Hosp >30min
--- NOTE | 2024-08-30 15:29 | PHA.DC.MR.R ---
Pharmacy IN Med Reconciliation Pharmacy Service has performed discharge medication reconciliation for this patient. Medication education papers prepared, patient discharged when counseling was attempted. Medications reviewed. The patient's discharge medication list was reviewed for discrepancies and discrepancies were resolved. Medications at Discharge Home Medications aspirin 81 mg tablet 81 mg PO DAILY heart health 02/02/21 letrozole 2.5 mg tablet 2.5 mg PO DAILY 08/25/24 losartan 50 mg tablet 50 mg PO DAILY 08/25/24 metformin 500 mg tablet 500 mg PO DAILY diabetes mellitus 08/25/24 nortriptyline 50 mg capsule 100 - 150 mg PO QHS 08/25/24 quetiapine 25 mg tablet 25 mg PO QHS #30 tabs 08/30/24
== END 2024-08-30 15:12 | disposition home or self-care (01) | DRG 884 ==
LOC: ED 23:48 → MS3 23:58
PROVIDERS: Hospitalist; Admitting Provider Family Medicine; Emergency Provider Emergency Medicine; PCP Internal Medicine
DX: F03.911 Unspecified dementia, unspecified severity, with agitation (principal); R62.7 Adult failure to thrive; C50.912 Malignant neoplasm of unspecified site of left female breast; E11.22 Type 2 diabetes mellitus with diabetic chronic kidney disease; N18.30 Chronic kidney disease, stage 3 unspecified; F03.93 Unspecified dementia, unspecified severity, with mood disturbance; I12.9 Hypertensive chronic kidney disease with stage 1 through stage 4 chronic kidney disease, or unspecified chronic kidney disease; F32.A Depression, unspecified; F41.9 Anxiety disorder, unspecified; E78.5 Hyperlipidemia, unspecified; K21.9 Gastro-esophageal reflux disease without esophagitis; Z68.26 Body mass index [BMI] 26.0-26.9, adult; R79.89 Other specified abnormal findings of blood chemistry; R53.81 Other malaise; R29.6 Repeated falls; Z79.82 Long term (current) use of aspirin; Z79.84 Long term (current) use of oral hypoglycemic drugs; Z79.811 Long term (current) use of aromatase inhibitors; Z79.899 Other long term (current) drug therapy
CPT/HCPCS: 36415; 70450; 71260; 72125; 74177; 80048; 80053; 80076; 81001; 82550; 82962; 84156; 85025; 85027; 85610; 85730; 87077; 87086; 87088; 87186; 92526; 92610; 93005; 94668; 97116; 97162; 97166; 97530; 97535; 99285; Q9967; A4216; J2405

== ENCOUNTER 2024-09-08 22:10 | Emergency (ER) | payer MEDICARE, SELFPAY ==
[2024-09-08 22:11] VITALS: BP 120/79; PULSE 86; RESP 22; TEMP 36.6; O2SAT 99; BMI 26.4
--- NOTE | 2024-09-08 23:22 | EDS_ITS ---
HPI History of Present Illness Chief Complaint: Dizziness Informant: patient Onset/Context/Timing Onset: Today Context: Gradual Onset Current Severity: Mild Maximum Severity: Mild Narrative Narrative: 79-year-old female history of intracranial bleed. Diabetes. Prior aneurysm that has been ablated. Patient a recent admission due to falls and failure to thrive. She lives alone at home. Said she felt dizzy today worse with her head movement. She does have a history of vertigo. Denies any headache or recent head trauma. Recent CT was negative. Prior similar symptoms: Yes Recent Illness/Hospitalization: Yes PFSH PFSH Medical History Orthostatic hypotension Hoarseness History of stress test Anxiety Depression Migraines Normochromic normocytic anemia Diabetes mellitus type 2 in nonobese Hyponatremia Obstructive hydrocephalus IVH (intraventricular hemorrhage) Infiltrating ductal carcinoma of left breast HTN (hypertension) Brain aneurysm SAH (subarachnoid hemorrhage) Walking difficulty due to ankle and foot Hammer toe of right foot Tibialis posterior tendinopathy Posterior tibial tendinitis of right lower extremity Brain aneurysm GERD (gastroesophageal reflux disease) Osteoarthritis HLD (hyperlipidemia) Anxiety and depression HTN (hypertension) Home Medications ?Medication ?Instructions ?Recorded ?Last Taken ?Type aspirin 81 mg tablet 81 mg PO DAILY heart health 02/02/21 Unknown History letrozole 2.5 mg tablet 2.5 mg PO DAILY 08/25/24 Unk nown History losartan 50 mg tablet 50 mg PO DAILY 08/25/24 Unkn own History metformin 500 mg tablet 500 mg PO DAILY diabetes joy litus 08/25/24 Unknown History nortriptyline 50 mg capsule 100 - 150 mg PO QHS Unknown History quetiapine 25 mg tablet 25 mg PO QHS #30 tabs Unknown Rx meclizine 25 mg chewable tablet 25 mg PO TID PRN dizzi ness #10 tabs 09/09/24 Unknown Rx (Antivert) Allergy/AdvReac Type Severity Reaction Status Date / Time codeine AdvReac Nausea Verified 09/08/24 22:11 fluoxetine HCl (From Prozac) AdvReac shivers Verified 09/08/24 22:11 morphine AdvReac Nausea Verified 09/08/24 22:11 Family History Mother Breast cancer Hypertension Alzheimers disease Aunt Breast cancer Father CAD (coronary artery disease) Sister Alzheimers disease Other Bleeding disorder Surgical History History of appendectomy S/P coil embolization of cerebral aneurysm History of total knee arthroplasty Hx of craniotomy Cataract extraction status H/O laser iridotomy History of hysterectomy S/P breast lumpectomy S/P coil embolization of cerebral aneurysm Social History household members: none Smoking Status: Never smoker alcohol intake: never substance use type: does not use ROS ROS ED ROS Narrative Denies recent illness and some mild nausea tonight. No vomiting or diarrhea. No melena. No headache or chest pain. No abdominal pain. Constitutional Constitutional ED: Denies chills or fever(s) Eyes Eyes: Denies blurry vision ENT ENT ED: Denies ear pain Cardiovascular Cardiovascular: Denies chest pain Respiratory/Chest Respiratory/Chest: Denies cough Gastrointestinal Gastrointestinal: Reports nausea; Denies abdominal pain, diarrhea or vomiting Genitourinary Genitourinary ED: Denies dysuria or hematuria Musculoskeletal Musculoskeletal: Denies arthralgias Integumentary Denies abscess Neurologic Neurologic: Denies headache(s) Psychiatric Psychiatric: Denies anxiety Endocrine Endocrinology: Denies cold intolerance Hematologic/Lymphatic Hematologic/Lymphatic: Reports none Allergic/Immunologic Allergic/Immunologic ED: Denies mouth swelling, tongue swelling or urticaria EXAM Physical Exam Narrative Exam Narrative: 79-year-old female sitting upright in bed. Vital signs are stable afebrile. She does not look septic toxic. No acute distress. Currently no family or friends present in the room. From a prior dictation I believe her daughters live out of town. H EENT exam pupils round react to light. Motions are intact. No facial droop. Normal speech. No trauma to her face or scalp. Nontender. No bruising. TMs are unremarkable canals are not obstructed with wax. Moist mucous membranes. Neck nontender. No lymphadenopathy. Lungs clear to auscultation bilaterally. Heart regular rhythm rate about 85. Normal sinus rhythm on the monitor. Chest wall ribs nontender. Abdomen soft nontender. Back nontender. Moving all 4 extremities. 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 Dorsi plantarflexion intact. No drift. Neurologic exam she is awake alert. NIH is 0. Hilaria shows mild increase in symptoms with movement of her head. But is not impressive. Const Vital Signs: 09/08/24 22:11 09/09/24 00:15 Temperature 97.9 F Temperature Source Oral Pulse Rate 86 Pulse Rate [Lying] 75 Pulse Rate [Sitting (for 1 minute prior to obtaining)] 76 Pulse Rate [Standing (for 1 minute prior to obtaining)] 89 Respiratory Rate 22 H Blood Pressure 120/79 Blood Pressure [Lying] 137/74 H Blood Pressure [Sitting (for 1 minute prior to obtaining)] 139/80 H Blood Pressure [Standing (for 1 minute prior to obtaining)] 117/70 Blood Pressure Mean 92 Blood Pressure Mean [Lying] 95 Blood Pressure Mean [Sitting (for 1 minute prior to obtaining)] 99 Blood Pressure Mean [Standing (for 1 minute prior to obtaining)] 85 Pulse Ox 99 Oxygen Delivery Method Room Air Positive well nourished and well developed; Negative for cachectic, contractures or unkempt General Appearance ED: well developed and NAD; Negative for unkempt, cachectic, contractures or pallor Nutritional Appearance: Negative for cachectic HEENT Reports moist mucous membranes Eyes PERRL and EOMs intact bilaterally Neck no lymphadenopathy, supple and no JVD Chest Wall inspection of chest normal and palpation of chest normal Resp normal respiratory effort and clear to auscultation bilaterally Cardio regular rate, regular rhythm, S1 normal heart sound, S2 normal heart sound and no murmurs GI normal to inspection, nondistended, normoactive bowel sounds, non-tender, non- distended and no masses Palpation: soft; Negative for tender, guarding or rebound tenderness present Back/Spine no CVA tenderness General Back: Negative for CVA tenderness Cervical Spine: Negative for cervical spine tenderness Thoracic Spine / Upper Back: Negative for thoracic spinal tenderness or paraspinal muscle tenderness Lumbar Spine / Lower Back: Negative for lumbar spinal tenderness Extremity normal to inspection General Extremety ED: Negative for edema or tenderness General Extremity: Negative for edema Neuro oriented x3 and CN's II-XII intact bilaterally Sensorium / Orientation: alert; Negative for orientation impaired or lethargic Motor Exam: strength 5/5 throughout Psych mental status grossly normal Appearance: Negative for unkempt Mood & Affect: Negative for depressed, anxious or tearful Skin no wounds General Skin Exam: Negative for jaundice or pallor Lesions: No lesion noted Rashes: No rashes noted Trauma: Negative for abrasion MDM MDM MDM Narrative Medical decision making narrative: 79-year-old female from home with dizziness worse with head movement. May or may not be vertigo. Is not impressive exam at this time. Her neurologic exam is normal. I do not think she needs brain imaging she just had that done. This does not impress me as a stroke. Screening labs to be obtained. She will be am bulated. She be given a dose of Antivert. Repeat exam at 12:38 AM patient doing well. Clinically feels well. Says her dizziness resolved. Exam normal. Repeat neurologic exam normal and unchanged. Nurses told me patient did ambulate and ambulated well in the hallway. She feels comfortable being discharged home. I will send a prescription in for Antivert for her. She is comfortable being discharged home. History & Record Review Discussion w/independent historian: Patient Additional record(s) reviewed:: Prior inpatient record, Prior outpatient record, Prior ED visit and Prior labs Lab Data Attestation: I reviewed the patient's lab results. Lab results narrative: CBC normal. White count 6. H&H 13 and 39. Platelets 347. Electrolytes show gap 13. BUN 20 creatinine 0.8. Glucose 119. Labs: Laboratory Results - last 24 hr 09/08/24 23:20 WBC 6.4 RBC 4.29 Hgb 13.0 Hct 39.3 MCV 91.6 MCH 30.3 MCHC 33.1 RDW Std Deviation 41.1 RDW Coeff of Meño 12.4 Plt Count 347 MPV 8.8 Immature Gran % (Auto) 0.300 Neut % (Auto) 56.0 Lymph % (Auto) 29.8 [place] % (Auto) 7.8 Eos % (Auto) 5.0 Baso % (Auto) 1.1 H Absolute Neuts (auto) 3.6 Absolute Lymphs (auto) 1.90 Nucleated RBC % 0 Sodium 138 Potassium 4.6 Chloride 105 Carbon Dioxide 20.0 L Anion Gap 13 BUN 20 H Creatinine 0.88 Estim Creat Clear Calc 48.64 L Est GFR (MDRD) Non-Af 67 BUN/Creatinine Ratio 22.1 H Glucose 119 H Calcium 9.4 Discharge Plan Triage Chief Complaint: Dizziness ED Provider: Yossi Heredia Dx/Rx/DC Orders Clinical Impression: Dizziness, Vertigo Instructions: ED Dizziness, Uncertain Cause, ED Vertigo, Unspecified Prescriptions: New meclizine [Antivert] 25 mg tablet,chewable 25 mg PO TID PRN (Reason: dizziness) Qty: 10 0RF Rx Instructions: Use if having dizziness. No Action aspirin 81 mg Tablet 81 mg PO DAILY losartan 50 mg tablet 50 mg PO DAILY metformin 500 mg tablet 500 mg PO DAILY letrozole 2.5 mg tablet 2.5 mg PO DAILY nortriptyline 50 mg capsule 100 - 150 mg PO QHS quetiapine 25 mg Tablet 25 mg PO QHS Qty: 30 0RF Primary Care Provider: Radha Chang Referrals: Radha Chang MD [Primary Care Provider] - 3-5 Days if not improving Activity Restrictions/Additional Instructions: Follow-up with your doctor to ensure you are improving. Antivert for dizziness. Return if feeling worse. Print Language: [place] Disposition Disposition: Home, Self Care
[2024-09-08] MEDS: Meclizine HCl 25 MG Tablet PO (23:24)
[2024-09-08 23:27] LABS: Absolute Neutrophil Count 3.6 X10^3/uL (2.0-7.7); Basophil# 0.07 X10^3/uL; Basophil% 1.1 % (0-1); Eosinophil# 0.32 X10^3/uL; Hematocrit 39.3 % (37-47); Lymphocyte % 29.8 % (19-41); Mean Corp Hgb Conc 33.1 g/dL (32-36); Mean Corpuscular Hgb 30.3 pg (27.0-32.0); Mean Corpuscular Volume 91.6 fL (81-99); Mean Platelet Vol. 8.8 fl (6.2-12.0); Monocyte% 7.8 % (0-10); NRBC Flagged by Analyzer 0 % (0-5); Neutrophil # 3.56 X10^3/uL (2.7-7.7); Platelet Count 347 K/mm3 (150-450); RBC Distribution Width CV 12.4 % (11.6-14.6); RBC Distribution Width SD 41.1 fl (35.1-43.9); Red Blood Count 4.29 M/mm3 (4.2-5.4); White Blood Count 6.4 K/mm3 (4.4-11.0)
[2024-09-08 23:55] LABS: Anion Gap 13 (5-15); BUN 20 mg/dL (4-19); BUN/Creat Ratio 22.1 RATIO (10-20); Calcium,Total 9.4 mg/dL (7.6-11.0); Chloride 105 mmol/L (98-108); Creatinine, Serum 0.88 mg/dL (0.70-1.20); EST Glomerular Filtration Rate 67 (>60); Estimated Creatinine Clearance 48.64 ml/min (50-250); Glucose 119 mg/dL (70-99); Potassium 4.6 mmol/L (3.3-5.1); Sodium Level 138 mmol/L (133-145)
[2024-09-09 00:15] VITALS: BP 117/70; BP 137/74; BP 139/80; PULSE 75; PULSE 76; PULSE 89
[2024-09-09 00:58] VITALS: BP 117/70; PULSE 78; RESP 20; TEMP 36.6; O2SAT 99
== END 2024-09-09 01:00 | disposition home or self-care (01) ==
PROVIDERS: Emergency Provider Emergency Medicine; PCP Internal Medicine; Visit Provider Emergency Medicine
DX: R42 Dizziness and giddiness (principal); E11.9 Type 2 diabetes mellitus without complications; R62.7 Adult failure to thrive; E78.5 Hyperlipidemia, unspecified; I10 Essential (primary) hypertension; K21.9 Gastro-esophageal reflux disease without esophagitis; Z91.81 History of falling
CPT/HCPCS: 80048; 85025; 99285

== ENCOUNTER 2024-10-10 14:01 | Inpatient (IN) | payer MEDICARE, SELFPAY ==
[2024-10-10 14:03] VITALS: BP 117/76; PULSE 96; RESP 21; TEMP 37.2; O2SAT 97; BMI 26.9
--- NOTE | 2024-10-10 14:14 | EX.ED.DYSGE1 ---
HPI History of Present Illness Chief Complaint: Confusion Informant: patient and EMS Onset/Context/Timing Onset: Today Timing: Continuous Quality: Confusion Location: Generalized Worsened by: Nothing Relieved by: Nothing Narrative Narrative: The patient presents with confusion that was noticed today. Patient was talking on the phone with her daughter today and her daughter called EMS because she felt the patient was confused. Daughter states patient was not answering questions appropriately and was not making sense when she talk to her. Patient states she talked to her daughter yesterday on the phone. Patient states that she was not confused yesterday. Patient denies any fevers or chills. Patient states she feels off balance when he walks. Patient denies falling or hitting her head. Patient knows that there is September and Friday. Patient thinks it is 1974. [facility] Medical History Orthostatic hypotension Hoarseness History of stress test Anxiety Depression Migraines Normochromic normocytic anemia Diabetes mellitus type 2 in nonobese Hyponatremia Obstructive hydrocephalus IVH (intraventricular hemorrhage) Infiltrating ductal carcinoma of left breast HTN (hypertension) Brain aneurysm SAH (subarachnoid hemorrhage) Walking difficulty due to ankle and foot Hammer toe of right foot Tibialis posterior tendinopathy Posterior tibial tendinitis of right lower extremity Brain aneurysm GERD (gastroesophageal reflux disease) Osteoarthritis HLD (hyperlipidemia) Anxiety and depression HTN (hypertension) Home Medications ?Medication ?Instructions ?Recorded ?Last Taken ?Type aspirin 81 mg tablet 81 mg PO DAILY heart health 02/02/21 10/09/24 History letrozole 2.5 mg tablet 2.5 mg PO DAILY 08/25/24 10/10/24 History metformin 500 mg tablet 500 mg PO DAILY diabetes mellitus 08/25/24 Unknown History nortriptyline 50 mg capsule 150 mg PO QHS 08/25/24 10/09/24 History quetiapine 25 mg tablet 25 mg PO QHS #30 tabs 08/30/24 Unknown Rx meclizine 25 mg chewable tablet 25 mg PO TID PRN dizziness #10 tabs 09/09/24 Unknown Rx (Antivert) losartan 25 mg tablet 25 mg PO DAILY 10/10/24 10/10/24 History Allergy/AdvReac Type Severity Reaction Status Date / Time codeine AdvReac Nausea Verified 09/08/24 22:11 fluoxetine HCl (From Prozac) AdvReac shivers Verified 09/08/24 22:11 morphine AdvReac Nausea Verified 09/08/24 22:11 Family History Mother Breast cancer Hypertension Alzheimers disease Aunt Breast cancer Father CAD (coronary artery disease) Sister Alzheimers disease Other Bleeding disorder Surgical History History of appendectomy S/P coil embolization of cerebral aneurysm History of total knee arthroplasty Hx of craniotomy Cataract extraction status H/O laser iridotomy History of hysterectomy S/P breast lumpectomy S/P coil embolization of cerebral aneurysm Social History household members: none Smoking Status: Never smoker alcohol intake: never substance use type: does not use ROS ROS ED Constitutional Constitutional ED: Denies chills or fever(s) Eyes Eyes: Denies blurry vision or change in vision ENT ENT ED: Denies rhinorrhea or sore throat Cardiovascular Cardiovascular: Denies chest pain or palpitations Respiratory/Chest Respiratory/Chest: Denies cough or dyspnea Gastrointestinal Gastrointestinal: Denies nausea or vomiting Genitourinary Genitourinary ED: Denies dysuria or hematuria Musculoskeletal Musculoskeletal: Denies back pain or neck pain Integumentary Denies abscess or rash Neurologic Neurologic: Denies headache(s) or weakness Allergic/Immunologic Allergic/Immunologic ED: Denies mouth swelling or urticaria EXAM Physical Exam Const Vital Signs: 10/10/24 14:03 10/10/24 15:34 10/10/24 16:00 Temperature 98.9 F 98.6 F 98.6 F Temperature Source Oral Oral Oral Pulse Rate 96 89 84 Respiratory Rate 21 H 17 17 Blood Pressure 117/76 134/83 H 118/80 Blood Pressure Mean 89 100 92 Pulse Ox 97 99 96 Oxygen Delivery Method Room Air Room Air Room Air Positive well nourished and well developed General Appearance ED: well developed and NAD HEENT Reports moist mucous membranes Negative for trauma Neck supple and no JVD Resp normal respiratory effort and clear to auscultation bilaterally Cardio regular rate and regular rhythm GI non-tender and non-distended Palpation: soft Neuro CN's II-XII intact bilaterally and no sensory deficits noted Sensorium / Orientation: alert and orientation impaired Motor Exam: strength 5/5 throughout Psych mental status grossly normal MDM MDM MDM Narrative Medical decision making narrative: Differential diagnosis includes intracranial bleeding, stroke, electrolyte abnormality, urinary tract infection, pneumonia, bronchitis, viral illness, cardiac dysrhythmia, cardiac ischemia, and anxiety. CT scan of the brain will be obtained to assess for intracranial bleeding and stroke. EKG will be obtained to assess for cardiac dysrhythmia and cardiac ischemia. Chest x-ray will be obtained to assess for pneumonia or bronchitis. CBC will be obtained to assess for leukocytosis and anemia. Basic metabolic profile will be obtained to assess for electrolyte abnormality and renal function. High-sensitivity troponin will be obtained to assess for cardiac ischemia. 2-hour repeat high-sensitivity troponin will be obtained to assess for ongoing cardiac ischemia. Urinalysis will be obtained to assess for urinary tract infection. Serum lactate will be obtained to assess for sepsis. COVID-19, influenza, and RSV PCR will be obtained to assess for viral illness. History & Record Review Additional record(s) reviewed:: Prior ED visit and Prior labs Lab Data Attestation: I reviewed the patient's lab results. Lab results narrative: CBC was reviewed and was within normal limits. Basic metabolic profile was reviewed. Glucose was mildly elevated at 194. Serum lactate was reviewed and was elevated at 2.6. A high-sensitivity troponin was reviewed and was slightly elevated at 15. Urinalysis was reviewed. Leukocyte Estrace was 100 with 5-10 white blood cells. There is 4+ bacteria. COVID-19 PCR was reviewed and was negative. Influenza PCR was reviewed and was negative for influenza A and influenza B. RSV PCR was reviewed and was negative. Labs: Laboratory Results - last 24 hr 10/10/24 10/10/24 14:22 15:30 WBC 6.3 RBC 4.33 Hgb 13.2 Hct 39.8 MCV 91.9 MCH 30.5 MCHC 33.2 RDW Std Deviation 40.5 RDW Coeff of Meño 12.0 Plt Count 323 MPV 8.3 Immature Gran % (Auto) 0.300 Neut % (Auto) 62.3 Lymph % (Auto) 23.5 [place] % (Auto) 9.3 Eos % (Auto) 3.8 Baso % (Auto) 0.8 Absolute Neuts (auto) 3.9 Absolute Lymphs (auto) 1.47 Nucleated RBC % 0 Sodium 136 Potassium 4.3 Chloride 103 Carbon Dioxide 22.2 Anion Gap 11 BUN 17 Creatinine 0.85 Estim Creat Clear Calc 50.87 Est GFR (MDRD) Non-Af 70 BUN/Creatinine Ratio 19.9 Glucose 194 H Lactic Acid 2.6 H* Calcium 9.1 Troponin T High Sens 15 H Urine Color Yellow Urine Clarity Cloudy Urine pH 7.0 Ur Specific [place] 1.015 Urine Protein 15 H Urine Glucose (UA) Normal Urine Ketones Negative Urine Occult Blood Negative Urine Nitrite Positive H Urine Bilirubin Negative Urine Urobilinogen Normal Ur Leukocyte Esterase 100 H Urine RBC 0 SEEN Urine WBC 5-10 SEEN Ur Squamous Epith Cells 0-5 SEEN Amorphous Sediment 3+ Urine Bacteria 4+ Coarse Granular Casts 0-5 SEEN Urine Mucus 0 SEEN Radiography Chest X-Ray - ED: 2 View, Read by ED Physician, Read by Radiologist and No Acute Disease Diagnostic Testing: Clinical Impression(s) from Imaging Studies Brain CT 10/10/24 14:21 IMPRESSION: No acute intracranial finding. Stable postoperative changes as described. Reading Location: [facility] Chest X-Ray 10/10/24 15:05 IMPRESSION: NO ACUTE FINDINGS. Reading Location: [facility] CT scan of the brain was obtained. There is no acute intracranial abnormality. There are chronic changes noted. This was interpreted by the radiologist and was also independently reviewed by myself. PA and lateral chest x-ray was obtained. There are 2 views. On my independent interpretation, lung singh are clear. There is normal cardiac silhouette. Bony thorax is normal. There is no acute process noted. Radiologist also interpreted the x-ray and agrees. EKG Initial EKG: Attestation: I personally reviewed and interpreted this EKG as follows: Interpretation: Sinus Rhythm (92) and No Acute Injury Pattern Comments: EKG was obtained. On my independent interpretation, it showed a normal sinus rhythm with a rate of 92. OK interval, QRS interval, and QTc intervals were all normal. There is left axis deviation at -29. There are no acute ST or T wave changes. Prior EKG tracings: available for review Prior: Unchanged (08/25/2024) Treatment and Re-Evaluation :: Blood cultures and urine culture were obtained. Patient was started on Rocephin. Case was discussed with the hospitalist. He will admit the patient to his service. Patient understood and was agreeable with the plan. All questions were answered. Discharge Plan Triage Chief Complaint: Confusion ED Provider: Jose Dodd Dx/Rx/DC Orders Clinical Impression: Urinary tract infection, Confusion, Lactic acidosis Prescriptions: No Action aspirin 81 mg Tablet 81 mg PO DAILY metformin 500 mg tablet 500 mg PO DAILY letrozole 2.5 mg tablet 2.5 mg PO DAILY nortriptyline 50 mg capsule 150 mg PO QHS quetiapine 25 mg Tablet 25 mg PO QHS Qty: 30 0RF Patient Comments: PT UNSURE IF SHE TAKES. meclizine [Antivert] 25 mg tablet,chewable 25 mg PO TID PRN (Reason: dizziness) Qty: 10 0RF Patient Comments: PT UNSURE IF SHE TAKES. Rx Instructions: Use if having dizziness. losartan 25 mg tablet 25 mg PO DAILY Primary Care Provider: Radha Chang Referrals: Radha Chang MD [Primary Care Provider] - Print Language: German Disposition Disposition: Acute Care Hospital [facility]
--- NOTE | 2024-10-10 14:21 | CT_ITS ---
EXAM: BRAIN/HEAD WITHOUT CONTRAST CLINICAL HISTORY: 79 y/o F with CONFUSION. COMPARISON: CT head 08/25/2024. TECHNIQUE: Routine CT imaging of the head without IV contrast. Additional multiplanar reformats were obtained. Dose reduction techniques were used including intermediate exposure control (AEC),iterative reconstruction technique, and/or mA and/or KV dose adjustments based on patient's size. FINDINGS: Visualization is limited by metallic streak artifact. Prior left frontal craniotomy. Probable julio cesar hole defect within the right frontal calvarium with linear gliosis extending to the right 3rd ventricle, compatible with prior shunt placement. Mild generalized cerebral volume loss with concordant prominence of the ventricles and subarachnoid spaces. No acute intracranial hemorrhage or herniation. 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 Moderate patchy supratentorial white matter hypodensities. Prior ocular lens replacements. Mild mucosal thickening of the right maxillary sinus. The visualized paranasal sinuses and mastoids are otherwise unremarkable. No acute calvarial fracture or scalp hematoma. CT/Brain/Head without Contrast IMPRESSION: No acute intracranial finding. Stable postoperative changes as described. Reading Location: [id number]
--- NOTE | 2024-10-10 14:21 | EKG12_ITS ---
Test Reason : CONFUSION Blood Pressure : */* mmHG Vent. Rate : 92 BPM Atrial Rate : 92 BPM P-R Int : 184 ms QRS Dur : 84 ms QT Int : 336 ms P-R-T Axes : 49 -29 54 degrees QTcB Int : 415 ms Normal sinus rhythm Normal ECG Confirmed by RAFAEL TAVERA, GOLDY ([id number]), editor school photograph APURVA CAMEJO ([id number]) on 10/12/2024 7:45:26 AM Referred By: Confirmed By: GOLDY HALL MD
--- OUTSIDE RECORDS SUMMARY | 2024-10-10 14:23 | XMS RPT_ITS | CCD ---
Author Organization [facility] Care Team Providers Care Audit Lead Name Role Phone Ruddy Cooper MD Primary Care Provider Emeterio TAVERA MD, Sid Unavailable Vlad Velasquez MD Unavailable Unavailable Grater FILM AND VIDEO EDITOR.MANUAL LATHE OPERATOR, Rigoberto Unavailable Marco Antonio KELSEY, Jaimee Unavailable Ruddy Cooper MD Primary Care Provider Emeterio TAVERA MD, Sid Unavailable Vlad Velasquez MD Unavailable Unavailable Grater FILM AND VIDEO EDITOR.MANUAL LATHE OPERATOR, Rigoberto Unavailable Marco Antonio PT, Jaimee Unavailable Emeterio TAVERA, Sid Unavailable Ruddy Cooper MD Primary Care Provider Love FILM AND VIDEO EDITOR.DEFLECTOR OPERATOR, Bradford Unavailable Shila FILM AND VIDEO EDITOR.MANUAL LATHE OPERATOR, Elma Unavailable Shila FILM AND VIDEO EDITOR.MANUAL LATHE OPERATOR, Elma Geno Unavailable Shila FILM AND VIDEO EDITOR.MANUAL LATHE OPERATOR, Elma Unavailable Shila FILM AND VIDEO EDITOR.MANUAL LATHE OPERATOR, Elma Unavailable Shila FILM AND VIDEO EDITOR.MANUAL LATHE OPERATOR, Elma Unavailable Moises RN, Lamar Unavailable Allison TAVERA, Dr. Ruddy Bess Primary Care Provider Dr. Hermes Salas DO Emergency Provider Dr. Isabel Michelle MD Admit Provider [phone] Viviana TAVERA, Dr. Isabel Johnson Other Provider Dr. Jose Mariee DO Attending Provider Dr. Veto Lynne DO Other Provider Dr. Veto Lynne DO Attending Provider Dr. Jose Mariee DO Other Provider Yan TAVERA, Dr. Sy Emergency Provider [phone] Talampas, Ruddy D Primary Care Unavailable Veto Lynne Attending Unavailable White, Isabel L Consulting Unavailable Isabel Michelle L Admitting Unavailable Veto Lynne Consulting Unavailable Jose Mariee Attending Unavailable Jose Mariee Consulting Unavailable Isabel Michelle Attending Unavailable Yossi Heredia Attending Unavailable Talampas, Ruddy D Primary Care Unavailable Talampas, Ruddy D Primary Care Unavailable Olu Larson Attending Unavailable Talampas, Ruddy D Primary Care Unavailable Jose Mariee Attending Unavailable Isabel Michelle L Consulting Unavailable Viviana, Isabel L Admitting Unavailable Veto Lynne Consulting Unavailable Love FILM AND VIDEO EDITOR.DEFLECTOR OPERATOR, Bradford Unavailable [phone] LOVE, BRADFORD Referring Unavailable TALAMPAS, RUDDY D Primary Care Unavailable LOVE, BRADFORD Referring Unavailable TALAMPAS, RUDDY D Primary Care Unavailable O'CASPER, CHARLEEN Attending Unavailable LOVE, BRADFORD Referring Unavailable TALAMPAS, RUDDY D Primary Care Unavailable O'CASPER, CHARLEEN Attending Unavailable LOVE, BRADFORD Referring Unavailable TALAMPAS, RUDDY D Primary Care Unavailable O'CASPER, CHARLEEN Attending Unavailable LOVE, BRADFORD Referring Unavailable TALAMPAS, RUDDY D Primary Care Unavailable O'CASPER, CHARLEEN Attending Unavailable LOVE, BRADFORD Referring Unavailable TALAMPAS, RUDDY D Primary Care Unavailable LOVE, BRADFORD Referring Unavailable TALAMPAS, RUDDY D Primary Care Unavailable O'CASPER, CHARLEEN Attending Unavailable O'CASPER, CHARLEEN Attending Unavailable LOVE, BRADFORD Referring Unavailable TALAMPAS, RUDDY D Primary Care Unavailable O'CASPER, CHARLEEN Attending Unavailable LOVE, BRADFORD Referring Unavailable TALAMPAS, RUDDY D Primary Care Unavailable O'CASPER, CHARLEEN Attending Unavailable LOVE, BRADFORD Referring Unavailable TALAMPAS, RUDDY D Primary Care Unavailable O'CASPER, CHARLEEN Attending Unavailable LOVE, BRADFORD Referring Unavailable TALAMPAS, RUDDY D Primary Care Unavailable LOVE, BRADFORD Attending Unavailable LOVE, BRADFORD Referring Unavailable TALAMPAS, RUDDY D Primary Care Unavailable PERDOMO, RAPHAEL Attending Unavailable PERDOMO, RAPHAEL Referring Unavailable TALAMPAS, RUDDY D Primary Care Unavailable TALAMPAS, RUDDY D Attending Unavailable TALAMPAS, RUDDY D Primary Care Unavailable O'CASPER, CHARLEEN Attending Unavailable LOVE, BRADFORD Referring Unavailable TALAMPAS, RUDDY D Primary Care Unavailable O'CASPER, CHARLEEN Attending Unavailable LOVE, BRADFORD Referring Unavailable TALAMPAS, RUDDY D Primary Care Unavailable O'CASPER, CHARLEEN Attending Unavailable LOVE, BRADFORD Referring Unavailable TALAMPAS, RUDDY D Primary Care Unavailable LOVE, BRADFORD Attending Unavailable TALAMPAS, RUDDY D Primary Care Unavailable BETTE, RAPHAEL Attending Unavailable TALAMPAS, RUDDY D Primary Care Unavailable O'CASPER, CHARLEEN Attending Unavailable LOVE, BRADFORD Referring Unavailable TALAMPAS, RUDDY D Primary Care Unavailable O'CASPER, CHARLENE Attending Unavailable LOVE, BRADFORD Referring Unavailable TALAMPAS, RUDDY D Primary Care Unavailable O'CASPER, CHARLEEN Attending Unavailable LOVE, BRADFORD Referring Unavailable TALAMPAS, RUDDY D Primary Care Unavailable O'CASPER, CHARLEEN Attending Unavailable LOVE, BRADFORD Referring Unavailable TALAMPAS, RUDDY D Primary Care Unavailable O'CASPER, CHARLEEN Attending Unavailable LOVE, BRADFORD Referring Unavailable TALAMPAS, RUDDY D Primary Care Unavailable TALAMPAS, RUDDY D Referring Unavailable TALAMPAS, RUDDY D Primary Care Unavailable TALAMPAS, RUDDY D Attending Unavailable TALAMPAS, RUDDY D Primary Care Unavailable TALAMPAS, RUDDY D Primary Care Unavailable KHRIS SALINAS Attending Unavailable MELANI ZUNIGA Referring Unavailable TALAMPAS, RUDDY D Primary Care Unavailable LOVE, BRADFORD Referring Unavailable TALAMPAS, RUDDY D Primary Care Unavailable TALAMPAS, RUDDY D Primary Care Unavailable TALAMPAS, RUDDY D Referring Unavailable TALAMPAS, RUDDY D Primary Care Unavailable LOVE, BRADFORD Referring Unavailable TALAMPAS, RUDDY D Primary Care Unavailable OLVE, BRADFORD Referring Unavailable TALAMPAS, RUDDY D Primary Care Unavailable BRADFORD LOVE Referring Unavailable EDWIN COOPERA Maria Alejandra Primary Care Unavailable BRADFORD LOVE Attending Unavailable EDWIN COOPERA Maria Alejandra Primary Care Unavailable ALLISON RUDDY D Primary Care Unavailable RUIZ SERRATO Referring Unavailable ALLISON RUDDY Maria Alejandra Primary Care Unavailable Allergies Allergy Classification Reported Allergen(s) Allergy Type Date of Onset Reaction(s) Facility Opioid Agonists (4 sources) Codeine Drug Allergy 06-06-2004 GI Upset [facility] Serotonin Reuptake Inhibitors (SSRIs) (2 sources) FLUoxetine Drug Allergy 12-26-2004 Intolerance [facility] (20 sources) Codeine; Translations: [CODEINE] Drug Allergy 06-06-2004 GI Upset [facility] (20 sources) FLUoxetine; Translations: [FLUOXETINE] Drug Allergy 12-26-2004 Intolerance [facility] Work Phone: (20 sources) Morphine; Translations: [MORPHINE] Drug Allergy 06-06-2004 GI Upset [facility] (3 sources) FLUoxetine; Translations: [fluoxetine HCl] Drug Allergy 05-14-2019 [facility] (1 source) Codeine Drug Allergy 09-08-2024 [facility] (1 source) Morphine Drug Allergy 09-08-2024 [facility] Repository Medications Current Medications Medication Drug Class(es) Dates Sig (Normalized) Sig (Original) acetaminophen 325 mg / oxyCODONE hydrochloride 5 mg oral tablet (2 sources) Opioid Agonist Start: 08-31-2021 take 1 tablet by mouth every six hours Oxycodone-Acetami nophen Active 1 TABLET PO EVERY 6 HOURS 14 7 August 31, 2021 3:39pm Start: 08-31-2021 End: 02-27-2024 Oxycodone-Acetaminophen 5-32 5 mg tablet Discontinued 1 {tbl} PO EVERY 6 HOURS as needed for pain 14 August 31, 2021 February 27, 2024 2:17pm Arthritis Pain Compound (2 sources) Start: 02-27-2021 Arthritis Pain Compound Active 0 CLICK topical THREE TIMES A DAY 0 February 27, 2021 4:02pm Start: 02-27-2021 End: 08-25-2024 Arthritis Pain Compound Disc ontinued 0 NMA topical THREE TIMES A DAY 0 February 27, 2021 12:00am August 25, 2024 11:40pm ascorbic acid 500 mg oral tablet (20 sources) Vitamin C Start: 02-02-2021 End: 08-25-2024 take 500 mg by mouth once daily Ascorbic Acid (Vitamin C) Active 500 MG PO DAILY February 02, 2021 1:29pm Comment on above: Take 500 mg by mouth once daily. aspirin 81 mg delayed release oral tablet (20 sources) Platelet Aggregation Inhibitor, Nonsteroidal Anti-inflammatory Drug Start: 02-02-2021 take 1 tablet by mouth once daily aspirin, enteric coated (ASPIRIN, ENTERIC COATED) 81 mg EC tablet Take 81 mg by mouth once daily. 02/02/2021 Active Start: 02-02-2021 take 81 mg by mouth once daily Aspirin Active 81 MG PO DAILY February 02, 2021 1:29pm Start: 01-01-2021 End: 02-02-2021 take 1 tablet by mouth once daily aspirin 325 mg tablet Indications: Intracranial aneurysm Take 1 tablet by mouth once daily. 90 tablet 3 01/01/2021 02/02/2021 Discontinued End: 01-08-2021 take 1 tablet by mouth once daily aspirin, enteric coated (ASPIRIN, ENTERIC COATED) 81 mg EC tablet Take 81 mg by mouth once daily. 01/08/2021 Discontinued (Duplicate Entry) Comment on above: Take by mouth. Take 81 mg by mouth once daily. ciprofloxacin 500 mg oral tablet (2 sources) Quinolone Antimicrobial Start: 09-01-19 End: 02-27-20 take 1 tablet by mouth twice daily Ciprofloxacin Hcl (Cipro) 500 mg tablet Active 500 MG PO TWICE A DAY August 31, 2021 3:39pm folic acid 0.4 mg oral tablet (20 sources) Start: 02-03-20 take 0.4 mg by mouth once daily Folic Acid Active 0.4 MG PO DAILY February 02, 2021 1:29pm Start: 02-02-2021 End: 08-25-2024 take 0.4 mg by mouth once daily Folic Acid 400 mcg Tab let Discontinued 0.4 mg PO DAILY February 02, 2021 12:00am August 25, 2024 11:40pm Start: 07-19-2005 End: 11-01-2020 FOLIC ACID 1 MG TAB Take one (1) tablet daily 0 0 07/19/2005 11/01/2020 Discontinued End: 12-19-2023 take 1 tablet by mouth once daily folic acid 400 mcg tablet Take 400 mcg by mouth once daily. 12/19/2023 Discontinued Comment on above: Take 400 mcg by mout h once daily. Qjcf-Venzy-Mn3-Dha-Ep a-Fish-St (Glucosamine Chondroitin Plus) [id number] mg Capsule (2 sources) Start: 02-02-2021 take 1 capsule by mouth once daily Yzsb-Mgfse-Sm7-Dha-Ep a-Fish-St (Glucosamine Chondroitin Plus) [id number] mg Capsule Active 1 CAP PO DAILY February 02, 2021 1:29pm Start: 02-02-2021 End: 08-25-2024 Txvd-Xxtrp-Jk5-Uvc-Xoe-Alol- St (Glucosamine Chondroitin Plus) [id number] mg Capsule Discontinued 1 NMA PO DAILY February 02, 2021 12:00am August 25, 2024 11:41pm iv contrast (will be provided with radiology test) (20 sources) Start: 06-23-2024 End: 06-24-2024 inject 1 dose intravenously once iv contrast (will be provided with radiology test) CTA Head W IVCON No IV access, insert saline lock prior to the sedation, infusion, injection for imaging exam. Discontinue saline lock post exam. If Pt. has a central line or IVAD, may access for administration according to line specific nursing protocol. Once exam is complete flush line and de-access according to line specific nursing protocol in the CT contrast administration guidelines link. 1 Each 06/23/2024 06/24/2024 Active Start: 06-22-2024 End: 06-23-2024 iv contrast (will be provide d with radiology test) Indications: Intracranial aneurysm MRA Brain Inject, intravenously, once for 1 dose. No IV access, insert saline lock prior to the beginning of sedation, infusion, injection of imaging exam. Discontinue saline lock post exam. If Pt. has a central line or IVAD, may access for administration according to line specific nursing protocol. Once exam is complete flush line and de-access according to line specific nursing protocol in the MR contrast administration guidelines link. 1 Each 06/22/2024 06/23/2024 Discontinued (Course of therapy completed) Start: 06-22-2024 iv contrast (w ill be provided with radiology test) Indications: Intracranial aneurysm MRA Brain Inject, intravenously, once for 1 dose. No IV access, insert saline lock prior to the beginning of sedation, infusion, injection of imaging exam. Discontinue saline lock post exam. If Pt. has a central line or IVAD, may access for administration according to line specific nursing protocol. Once exam is complete flush line and de-access according to line specific nursing protocol in the MR contrast administration guidelines link. 1 Each 06/22/2024 Active Start: 03-01-2022 End: 09-08-2023 iv contrast (will be provide d with radiology test) Indications: Intracranial aneurysm MRA Brain Inject, intravenously, once for 1 dose. No IV access, insert saline lock prior to the beginning of sedation, infusion, injection of imaging exam. Discontinue saline lock post exam. If Pt. has a central line or IVAD, may access for administration according to line specific nursing protocol. Once exam is complete flush line and de-access according to line specific nursing protocol in the MR contrast administration guidelines link. 1 Each 03/01/2022 09/08/2023 Discontinued Start: 03-01-2022 End: 09-08-2023 iv contrast (will be provide d with radiology test) Indications: Intracranial aneurysm MRA Brain Inject, intravenously, once for 1 dose. No IV access, insert saline lock prior to the beginning of sedation, infusion, injection of imaging exam. Discontinue saline lock post exam. If Pt. has a central line or IVAD, may access for administration according to line specific nursing protocol. Once exam is complete flush line and de-access according to line specific nursing protocol in the MR contrast administration guidelines link. 1 Each 0 03/01/2022 09/08/2023 Discontinued Start: 03-01-2022 iv contrast (w ill be provided with radiology test) Indications: Intracranial aneurysm MRA Brain Inject, intravenously, once for 1 dose. No IV access, insert saline lock prior to the beginning of sedation, infusion, injection of imaging exam. Discontinue saline lock post exam. If Pt. has a central line or IVAD, may access for administration according to line specific nursing protocol. Once exam is complete flush line and de-access according to line specific nursing protocol in the MR contrast administration guidelines link. 1 Each 0 03/01/2022 Active Comment on above: MRA Brain Inject, in travenously, once for 1 dose. No IV access, insert saline lock prior to the beginning of sedation, infusion, injection of imaging exam. Discontinue saline lock post exam. If Pt. has a central line or IVAD, may access for administration according to line specific nursing protocol. Once exam is complete flush line and de-access according to line specific nursing protocol in the MR contrast administration guidelines link. letrozole 2.5 mg oral tablet (20 sources) Aromatase Inhibitor Start: take 1 tablet by mouth once daily letrozole (FEMARA) 2.5 mg tablet Take 1 tablet by mouth once daily. 90 tablet 3 01/08/2024 Active Start: 10-11-2022 End: 12-05-2022 take 1 tablet by mouth once daily letrozole (FEMARA) 2.5 mg tablet Take 1 tablet by mouth once daily. 90 tablet 3 10/11/2022 12/05/2022 Discontinued Comment on above: Take 1 tablet by guido th once daily. losartan potassium 25 mg oral tablet (20 sources) Angiotensin 2 Receptor King Start: 09-07-2024 take 1 tablet by mouth once daily losartan (COZAAR) 25 mg tablet Indications: Dementia with other behavioral disturbance, unspecified dementia severity, unspecified dementia type (HCC) , Frequent falls , Failure to thrive in adult Take 1 tablet by mouth once daily. 90 tablet 3 09/07/2024 Active Start: 10-18-2022 End: 09-07-2024 take 1 tablet by mouth once daily Losartan 50 mg table t Active 50 mg PO DAILY August 25, 2024 12:00am Comment on above: Take 1 tablet by guido th once daily. Magnesium (2 sources) Start: 08-29-2021 take 100 mg by mouth once daily Magnesium Active 100 MG PO DAILY August 29, 2021 10:48pm Start: 08-29-2021 End: 08-25-2024 take 1 capsule by mouth once daily Magnesium 100 mg Capsule Discontinued 100 mg PO DAILY August 29, 2021 12:00am August 25, 2024 11:41pm meclizine hydrochloride 25 mg chewable tablet (5 sources) Antiemetic Start: 09-09-2024 take 1 tablet by mouth three times daily as needed for dizziness Meclizine (Antivert) 25 mg tablet,chewable Active 25 mg PO THREE TIMES A DAY as needed for dizziness September 09, 2024 12:47am Use if having dizziness. Start: 08-05-2019 End: 02-02-2021 take 1 tablet by mouth every six hours as needed for dizziness meclizine (ANTIVERT) 25 mg tab Indications: Vertigo Take 1 tablet by mouth every 6 hours as needed (dizziness). 20 tablet 08/05/2019 02/02/2021 Discontinued Start: 01-25-2019 End: 02-27-2024 take 25 mg by mouth every six hours as needed Meclizine Active 25 MG PO EVERY 6 HOURS NEEDED January 25, 2019 7:42pm metFORMIN hydrochloride 500 mg oral tablet (20 sources) Biguanide Start: 09-08-2023 End: 08-17-2024 take 1 tablet by mouth once daily at breakfast metFORMIN (GLUCOPHAGE) 500 mg tablet Indications: Type 2 diabetes mellitus with diabetic neuropathy, without long-term current use of insulin (HCC) Take 1 tablet by mouth daily with breakfast. For blood sugar. Do not take this medicine if you are not eating. 90 tablet 3 08/18/2024 Active niacin 250 mg oral tablet (4 sources) Nicotinic Acid Start: 02-02-2021 End: 02-27-2024 take 250 mg by mouth once daily Niacin Active 250 MG PO DAILY February 02, 2021 1:29pm nortriptyline 50 mg oral capsule (20 sources) Tricyclic Antidepressant Start: 02-17-2024 End: 09-07-2024 take 100-150 mg by mouth at bedtime Nortriptyline 50 mg capsule Active 100 - 150 mg PO AT BEDTIME August 25, 2024 12:00am Start: 11-25-2023 End: 03-06-2025 take 2 capsules by mouth once daily at bedtime nortriptyline (PAMELOR) 50 mg capsule Indications: Type 2 diabetes mellitus with diabetic neuropathy, without long-term current use of insulin (HCC) , 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) Take 2 capsules by mouth daily at bedtime. 270 capsule 1 09/07/2024 03/06/2025 Active Start: 09-08-2023 End: 09-07-2024 take 1 capsule by mouth once daily at bedtime nortriptyline (PAMELOR) 75 mg capsule Indications: Type 2 diabetes mellitus with diabetic neuropathy, without long-term current use of insulin (HCC) , 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) Take 1 capsule by mouth daily at bedtime. 90 capsule 3 09/08/2023 11/25/2023 Discontinued Start: 03-28-2022 End: 09-08-2023 take 1 capsule by mouth once daily at bedtime nortriptyline (PAMELOR) 50 mg capsule Take 1 capsule by mouth daily at bedtime. 90 capsule 3 04/24/2022 02/24/2023 Discontinued Start: 03-19-2021 End: 08-25-2024 take 1 capsule by mouth at bedtime Nortriptyline 25 mg capsule Discontinued 25 mg PO AT BEDTIME August 29, 2021 12:00am August 25, 2024 11:40pm Start: 02-02-2021 End: 02-27-2021 take 1 capsule by mouth at bedtime Nortriptyline (Pamelor) 75 mg Capsule Discontinued 150 MG PO AT BEDTIME February 02, 2021 1:29pm February 27, 2021 4:05pm Start: 08-05-2019 End: 07-17-2020 take 2 capsules by mouth once daily at bedtime nortriptyline (PAMELOR) 75 mg capsule Indications: Psychophysiological insomnia Take 2 capsules by mouth daily at bedtime. 180 capsule 3 08/05/2019 07/17/2020 Discontinued Comment on above: Take 1 capsule by mo [facility] daily at bedtime. Tumeric (2 sources) Start: 07-07-2015 take 1 tablet by mouth once daily Tumeric Active 1 TABLET PO DAILY July 07, 2015 10:19am Start: 07-07-2015 End: 08-25-2024 Tumeric Discontinued 1 {tbl} PO DAILY July 07, 2015 1:00am August 25, 2024 11:41pm zolpidem tartrate 10 mg oral tablet (20 sources) gamma-Aminobutyric Acid-ergic Agonist Start: 10-17-2021 End: 09-22-2023 take 0.5-1 tablets by mouth at bedtime as needed zolpidem (AMBIEN) 10 mg Indications: Insomnia, unspecified type Take 0.5-1 tablets by mouth at bedtime as needed (insomnia) for up to 14 days. 14 tablet 09/08/2023 Active Start: 06-26-2021 End: 10-17-2021 take 0.5 tablet by mouth at bedtime as needed zolpidem (AMBIEN) 5 mg tablet Indications: Insomnia, unspecified type Take 0.5 tablets by mouth at bedtime as needed for sedation (for insomnia) for up to 14 days. 7 tablet 0 06/26/2021 10/17/2021 Discontinued Start: 05-26-2018 End: 02-27-2021 take 10 mg by mouth at bedtime Zolpidem Discontinued 1 0 MG PO AT BEDTIME May 26, 2018 6:54pm February 27, 2021 3:58pm Comment on above: Take 0.5 tablets by mouth at bedtime as needed for sedation (for insomnia) for up to 14 days. Take 0.5-1 tablets b y mouth at bedtime as needed (insomnia) for up to 14 days. Completed/Discontinued Medications Medication Drug Class(es) Dates Sig (Normalized) Sig (Original) acetaminophen 325 mg oral tablet (9 sources) Start: 02-02-2021 End: 08-25-2024 take 2 tablets by mouth every four hours as needed for pain Acetaminophen (Tylenol) 325 MG tablet Discontinued 650 mg PO EVERY 4 HOURS NEEDED as needed for Pain February 02, 2021 1:59pm August 25, 2024 11:40pm Start: 05-29-2018 End: 02-02-2021 take 2 tablets by mouth every six hours as needed Acetaminophen (Tylenol) 325 MG tablet Discontinued 650 MG PO EVERY 6 HOURS NEEDED May 29, 2018 10:43am February 02, 2021 2:01pm Comment on above: 2 tablets by ORAL/FE EDING TUBE route every 4 hours as needed for pain. acetaminophen 325 mg / HYDROcodone bitartrate 5 mg oral tablet (2 sources) Opioid Agonist Start: 05-29-2018 End: 05-31-2018 Hydrocodone-Acetaminoph en 1 TABLET tablet Discontinued 1 - 2 {tbl} PO EVERY 4 HOURS NEEDED as needed for Moderate-severe pain 20 2 May 29, 2018 10:43am May 30, 2018 1:00am May 31, 2018 1:09am Start: 05-29-2018 End: 05-31-2018 take 1 tablet by mouth every four hours as needed Hydrocodone-Acetaminophen Discontinued 1 - 2 TABLET PO EVERY 4 HOURS NEEDED 20 2 May 29, 2018 10:43am May 31, 2018 1:09am ALPRAZolam 0.25 mg oral tablet (8 sources) Benzodiazepine Start: 02-24-2023 End: 03-03-2023 take 0.25-0.5 mg by mouth every twenty-four hours as needed for anxiety and anxiety ALPRAZolam (XANAX) 0.25 mg tablet Indications: Anxiety Take 1-2 tablets by mouth at bedtime as needed for anxiety for up to 7 days. 7 tablet 0 02/24/2023 03/03/2023 Start: 10-17-2021 End: 10-24-2021 take 0.25-0.5 mg by mouth every twenty-four hours as needed for anxiety and anxiety ALPRAZolam (XANAX) 0.25 mg tablet Indications: Anxiety Take 1-2 tablets by mouth at bedtime as needed for anxiety for up to 7 days. 7 tablet 0 10/17/2021 10/24/2021 Start: 02-08-2019 End: 03-29-2021 take 1 tablet by mouth twice daily as needed for anxiety Alprazolam (Xanax) 0.5 mg Tablet Discontinued 0.5 mg PO TWICE A DAY as needed for Anxiety February 02, 2021 12:00am February 27, 2021 3:52pm Comment on above: Take 1-2 tablets by mouth at bedtime as needed for anxiety for up to 7 days. anastrozole 1 mg oral tablet (20 sources) Aromatase Inhibitor Start: 05-10-19 End: 08-26-19 take 1 tablet by mouth once daily Anastrozole (Arimidex) 1 mg Tablet Discontinued 1 mg PO DAILY February 02, 2021 12:00am August 25, 2024 11:40pm Comment on above: Take 1 tablet by guido th once daily. Take 1 mg by mouth o nce daily. atenolol 25 mg oral tablet (4 sources) beta-Adrenergic King Start: 05-26-19 End: 03-06-20 take 1 tablet by mouth twice daily atenolol (TENORMIN) 25 mg tablet Indications: Essential hypertension Take 1 tablet by mouth twice daily. 180 tablet 3 01/11/2020 03/06/2021 Discontinued biotin 1 mg oral capsule (1 source) Start: 07-07-19 16 End: 02-03-20 biotin 1 mg cap Take 1,000 mcg by mouth once daily. 07/07/2015 02/02/2021 Discontinued cephalexin 500 mg oral capsule (3 sources) Cephalosporin Antibacterial Start: 08-10-19 25 End: 08-17-19 25 take 1 capsule by mouth four times daily cephALEXin (KEFLEX) 500 mg capsule Indications: Acute UTI Take 1 capsule by mouth four times daily for 7 days. 28 capsule 08/09/2024 08/16/2024 cholecalciferol 0.125 mg oral capsule (20 sources) Vitamin D Start: 07-07-19 16 Cholecalciferol, Vitamin D3, 125 mcg (5,000 unit) cap 5,000 Units. 0 07/07/2015 Active Start: 04-10-2015 End: 12-23-2023 take 1 capsule by mouth once daily Cholecalciferol, Vitamin D3, 5,000 unit cap Take 1 capsule by mouth once daily. 04/10/2015 02/02/2021 Discontinued Comment on above: 5,000 Units. Take 5,000 Units by mouth once daily. clopidogrel 75 mg oral tablet (1 source) [id number] Platelet Inhibitor Start: 1 End: 1 take 1 tablet by mouth once daily clopidogrel (PLAVIX) 75 mg tablet Indications: Intracranial aneurysm Take 1 tablet by mouth once daily. 90 tablet 1 01/01/2021 02/02/2021 Discontinued COMPOUNDED PRESCRIPTION (1 source) End: 1 COMPOUNDED PRESCRIPTION Turmeric 1/2 tsp daily 0 11/01/2020 Discontinued ELDERBERRY FRUIT (20 sources) End: 3 elderberry fruit (ELDERBERRY ORAL) Take by mouth. 0 05/24/2022 Discontinued elderberry fruit (ELDERBERRY ORAL) Take by mouth. 0 Active Comment on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 Resolved: 10-21-2014 10-21-2014 Episodic Other gastrointestinal disorders (20 sources) Feces contents abnormal; Translations: [Other fecal abnormalities] Onset: 08-12-2007 Resolved: 10-21-2014 10-21-2014 Episodic Other injuries and conditions due to external causes (20 sources) Open wound; Translations: [Other injury of unspecified body region, initial encounter] Onset: 07-04-2008 Resolved: 10-21-2014 10-21-2014 Episodic Other lower respiratory disease (20 sources) Respiratory insufficiency; Translations: [Other abnormalities of breathing] Onset: 01-22-2021 Resolved: 01-24-2021 01-24-2021 Episodic Other nervous system disorders (20 sources) Obstructive hydrocephalus; Translations: [Obstructive hydrocephalus] Onset: 01-22-2021 Resolved: 10-15-2021 01-30-2021 Chronic Comment on above: She had an EVD while at the preceding hospital and it was removed prior to transfer to acute rehab Other nervous system disorders (20 sources) Abnormal gait; Translations: [Unspecified abnormalities of gait and mobility] Onset: 04-09-2021 Resolved: 07-19-2021 09-08-2023 Episodic Other nervous system disorders (1 source) Unspecified abnormalities of gait and mobility; Translations: [Gait difficulty] Onset: 09-29-2023 Episodic Other non-traumatic joint disorders (1 source) Pain in left ankle and joints of left foot; Translations: [Acute left ankle pain] Onset: 10-14-2023 Episodic Other nutritional; endocrine; and metabolic disorders (20 sources) Obese class I; Translations: [Obesity, unspecified] Onset: 01-23-2021 Resolved: 10-15-2021 01-23-2021 Chronic Other screening for suspected conditions (not mental disorders or infectious disease) (20 sources) Abnormal vaginal Papanicolaou smear; Translations: [Unspecified abnormal cytological findings in specimens from vagina] Onset: 10-21-2014 Resolved: 01-25-2021 04-23-2021 Episodic Other skin disorders (20 sources) Degenerative skin disorder; Translations: [Other specified disorders of the skin and subcutaneous tissue] Onset: 05-13-2008 Resolved: 10-21-2014 10-21-2014 Episodic Other skin disorders (20 sources) Disorder of skin pigmentation; Translations: [Disorder of pigmentation, unspecified] Onset: 05-13-2008 Resolved: 10-21-2014 10-21-2014 Episodic Other skin disorders (20 sources) Disorder of skin and/or subcutaneous tissue; Translations: [Other specified disorders of the skin and subcutaneous tissue] Onset: 05-13-2008 Resolved: 10-21-2014 10-21-2014 Episodic Other skin disorders (20 sources) Seborrheic keratosis; Translations: [Other seborrheic keratosis] Onset: 05-13-2008 Resolved: 10-21-2014 10-21-2014 Episodic Other skin disorders (20 sources) Eruption; Translations: [Rash and other nonspecific skin eruption] Onset: 06-22-2008 Resolved: 10-21-2014 10-21-2014 Episodic Other skin disorders (20 sources) Mass of skin; Translations: [Localized swelling, mass and lump, unspecified] Onset: 06-22-2008 Resolved: 10-21-2014 10-21-2014 Episodic Other skin disorders (20 sources) Lichen myxedematosus; Translations: [Mucinosis of the skin] Onset: 08-14-2009 Resolved: 10-21-2014 10-21-2014 Episodic Other skin disorders (20 sources) Idiopathic guttate hypomelanosis; Translations: [Other specified disorders of pigmentation] Onset: 08-14-2009 Resolved: 10-21-2014 10-21-2014 Episodic Other skin disorders (20 sources) Solar lentigo; Translations: [Other melanin hyperpigmentation] Onset: 08-14-2009 Resolved: 10-21-2014 10-21-2014 Episodic Other skin disorders (20 sources) Scar conditions and fibrosis of skin; Translations: [Scar conditions and fibrosis of skin] Onset: 08-27-2013 Resolved: 10-21-2014 10-21-2014 Episodic Otitis media and related conditions (20 sources) Dysfunction of eustachian tube; Translations: [Unspecified Eustachian tube disorder, unspecified ear] Resolved: 10-21-2014 10-21-2014 Episodic Residual codes; unclassified (20 sources) Bilateral lower limb edema; Translations: [Localized edema] Onset: 10-10-2015 01-30-2021 Episodic Residual codes; unclassified (20 sources) Delirium; Translations: [Disorientation, unspecified] Onset: 01-24-2021 Resolved: 10-15-2021 01-24-2021 Episodic Residual codes; unclassified (20 sources) Insomnia; Translations: [Insomnia, unspecified] Onset: 05-02-2021 05-02-2021 Episodic Spondylosis; intervertebral disc disorders; other back problems (20 sources) Degeneration of intervertebral disc; Translations: [Degeneration of intervertebral disc, site unspecified] Resolved: 10-21-2014 10-21-2014 Chronic Spondylosis; intervertebral disc disorders; other back problems (20 sources) Low back pain; Translations: [Lumbago] Resolved: 10-21-2014 10-21-2014 Episodic Syncope (2 sources) Syncope; Translations: [Syncope and collapse] Onset: 01-02-2024 12-19-2023 Episodic Unclassified (1 source) Abrasion of left elbow, initial encounter 03-06-2024 Urinary tract infections (20 sources) Urinary tract infectious disease; Translations: [Urinary tract infection, site not specified] Onset: 01-31-2021 Resolved: 10-15-2021 01-31-2021 Episodic Varicose veins of lower extremity (20 sources) Venous varices; Translations: [Varicose veins of other sites] Resolved: 10-21-2014 10-21-2014 Episodic Results Test Name Value Interpretation Reference Range Facility Absolute lymphocyte countOrd ered By: Yossi Heredia on 09-08-2024 Lymphocytes Auto (Unsp spec) [#/Vol] 1.90 10*3/uL 0.83-4.51 [facility] Absolute neutrophil countOrd ered By: Yossi Heredia on 09-08-2024 Neutrophils (Bld) [#/Vol] 3.6 10*3/uL 2.0-7.7 [facility] Anion gap in Serum or Plasma Ordered By: Yosis Heredia on 09-08-2024 Anion gap [Moles/Vol] 13 mmol/L 5- [facility] Automated lymphocyte count a s percentage of total leukocytesOrdered By: Yossi Heredia on 09-08-2024 Lymphocytes/100 WBC Auto (Unsp spec) 29.8 % [facility] BUN/creatinine ratioOrdered By: Yossi Heredia on 09-08-2024 Urea nitrogen/Creatinine [Mass ratio] 22.1 mg/mg High 02-14 [facility] Basic Metabolic Profile (BMP )on 09-08-2024 BUN/CRE 22.1 RATIO High 02-14 [facility] Comment on above: Performed By: #### L 500.2500, L100.0100 ####[facility] [address] [place], [address] Calcium [Mass/Vol] 9.4 mg/dL Normal 7.6-11.0 [facility] Comment on above: Performed By: #### L 500.2500, L100.0100 ####[facility] [address] [place], [address] Chloride [Moles/Vol] 105 mmol/L Normal 98-108 [facility] Comment on above: Performed By: #### L 500.2500, L100.0100 ####[facility] [address] [place], [address] CO2 [Moles/Vol] 20.0 mmol/L Low 21.0-32.0 [facility] Comment on above: Performed By: #### L 500.2500, L100.0100 ####[facility] [address] [place], [address] Creatinine [Mass/Vol] 0.88 mg/dL Normal 0.70-1.20 [facility] Comment on above: Performed By: #### L 500.2500, L100.0100 ####[facility] [address] [place], [address] ECRCL 48.64 ml/min Low 50-250 [facility] Comment on above: Performed By: #### L 500.2500, L100.0100 ####[facility] [address] [place], [address] GAP 13 Normal 5-15 [facility] Comment on above: Performed By: #### L 500.2500, L100.0100 ####[facility] [address] [place], [address] GFR/1.73 sq M.predicted among non-blacks MDRD (S/P/Bld) [Vol rate/Area] 67 mL/min/{1.73_m2} Normal >60 [facility] Comment on above: Result Comment: mL/m in/1.73m2 CKD-EPI Creatinine Equation (2020) Performed By: #### L 500.2500, L100.0100 ####[facility] [address] [place], [address] Glucose [Mass/Vol] 119 mg/dL High 70-99 [facility] Comment on above: Performed By: #### L 500.2500, L100.0100 ####[facility] [address] [place], [address] Potassium [Moles/Vol] 4.6 mmol/L Normal 3.3-5.1 [facility] Comment on above: Result Comment: Hemo lysis present, Results??could be affected. ?? Performed By: #### L 500.2500, L100.0100 ####[facility] [address] [place], [address] Sodium [Moles/Vol] 138 mmol/L Normal 133-145 [facility] Comment on above: Performed By: #### L 500.2500, L100.0100 ####[facility] [address] [place], [address] Urea nitrogen [Mass/Vol] 20 mg/dL High 4-19 [facility] Comment on above: Performed By: #### L 500.2500, L100.0100 ####[facility] [address] [place], [address] Basophil percentageOrdered B y: Yossi Heredia on 09-08-2024 Basophils/100 WBC (Bld) 1.1 % High 0-1 [facility] CBC W/Diff, Automatedon 08-26 Absolute Lymph 1.90 X10 3/uL Normal 0.83-4.51 [facility] Comment on above: Performed By: #### L 500.2500, L100.0100 ####[facility] [address] [place], [address] Absolute Neut 3.6 X10 3/uL Normal 2.0-7.7 [facility] Comment on above: Performed By: #### L 500.2500, L100.0100 ####[facility] [address] [place], [address] Basophils/100 WBC (Bld) 1.1 % High 0-1 [facility] Comment on above: Performed By: #### L 500.2500, L100.0100 ####[facility] [address] [place], [address] Eosinophils/100 WBC (Bld) 5.0 % Normal 0-5 [facility] Comment on above: Performed By: #### L 500.2500, L100.0100 ####[facility] [address] [place], [address] Erythrocyte distribution width (RBC) [Ratio] 12.4 % Normal 11.6-14.6 [facility] Comment on above: Performed By: #### L 500.2500, L100.0100 ####[facility] [address] [place], [address] Hematocrit (Bld) [Volume fraction] 39.3 % Normal 37-47 [facility] Comment on above: Performed By: #### L 500.2500, L100.0100 ####[facility] [address] [place], [address] Hemoglobin (Bld) [Mass/Vol] 13.0 g/dL Normal 12.0-15.0 [facility] Comment on above: Performed By: #### L 500.2500, L100.0100 ####[facility] [address] [place], [address] IG% 0.300 Normal 0.0-0.9 [facility] Comment on above: Result Comment: IG% - Immature Granulocytes (promyelocytes, myelocytes and metamyelocytes) > 1% indicates that a LEFT SHIFT is Present. Performed By: #### L 500.2500, L100.0100 ####[facility] [address] [place], [address] Lymphocytes/100 WBC (Bld) 29.8 % Normal 19-41 [facility] Comment on above: Performed By: #### L 500.2500, L100.0100 ####[facility] [address] [place], [address] MCH (RBC) [Entitic mass] 30.3 pg Normal 27.0-32.0 [facility] Comment on above: Performed By: #### L 500.2500, L100.0100 ####[facility] [address] [place], [address] MCHC (RBC) [Mass/Vol] 33.1 g/dL Normal 32-36 [facility] Comment on above: Performed By: #### L 500.2500, L100.0100 ####[facility] [address] [place], [address] MCV (RBC) [Entitic vol] 91.6 fL Normal 81-99 [facility] Comment on above: Performed By: #### L 500.2500, L100.0100 ####[facility] [address] [place], [address] Monocytes/100 WBC (Bld) 7.8 % Normal 0-10 [facility] Comment on above: Performed By: #### L 500.2500, L100.0100 ####[facility] [address] [place], [address] Neutrophils/100 WBC (Bld) 56.0 % Normal 47-70 [facility] Comment on above: Performed By: #### L 500.2500, L100.0100 ####[facility] [address] [place], [address] Nucleated RBC (Bld) [#/Vol] 0 10*3/uL Normal 0-5 [facility] Comment on above: Performed By: #### L 500.2500, L100.0100 ####[facility] [address] [place], [address] Platelet mean volume (Bld) [Entitic vol] 8.8 fL Normal 6.2-12.0 [facility] Comment on above: Performed By: #### L 500.2500, L100.0100 ####[facility] [address] [place], [address] Platelets (Bld) [#/Vol] 347 10*3/uL Normal 150-450 [facility] Comment on above: Performed By: #### L 500.2500, L100.0100 ####[facility] [address] [place], [address] RBC (Bld) [#/Vol] 4.29 10*6/uL Normal 4.2-5.4 [facility] Comment on above: Performed By: #### L 500.2500, L100.0100 ####[facility] [address] [place], [address] RDW SD 41.1 fl Normal 35.1-43.9 [facility] Comment on above: Performed By: #### L 500.2500, L100.0100 ####[facility] [address] [place], [address] WBC (Bld) [#/Vol] 6.4 10*3/uL Normal 4.4-11.0 [facility] Comment on above: Performed By: #### L 500.2500, L100.0100 ####[facility] [address] [place], [address] Carbon dioxide, total [Moles /volume] in Central venous bloodOrdered By: Yossi Heredia on 09-08-2024 CO2 [Moles/Vol] 20.0 mmol/L Low 21.0-32.0 [facility] Chloride assayOrdered By: Elder Heredia on 09-08-2024 Chloride [Moles/Vol] 105 mmol/L 98-108 [facility] Emergency Department Summary on 09-08-2024 Emergency Department Summary [facility] [place] [facility] Medical Records Department [address] [place] [address] Emergency Department Summary 09/08/24 MR#: [id number] Acct: [id number] Name: JUDI KRAUSE Rep #: [id number] : 1945 79 From: Yossi Heredia MD PCP: Dr. Ruddy Cooper MD Status:REG ER Location: ED HPI History of Present Illness Chief Complaint: Dizziness Informant: patient Onset/Context/Timing Onset: Today Context: Gradual Onset Current Severity: Mild Maximum Severity: Mild Narrative Narrative: 79-year-old female history of intracranial bleed. Diabetes. Prior aneurysm that has been ablated. Patient a recent admission due to falls and failure to thrive. She lives alone at home. Said she felt dizzy today worse with her head movement. She does have a history of vertigo. Denies any headache or recent head trauma. Recent CT was negative. Prior similar symptoms: Yes Recent Illness/Hospitalizatio n: Yes [facility] Medical History Orthostatic hypotension Hoarseness History of stress test Anxiety Depression Migraines Normochromic normocytic anemia Diabetes mellitus type 2 in nonobese Hyponatremia Obstructive hydrocephalus IVH (intraventricular hemorrhage) Infiltrating ductal carcinoma of left breast HTN (hypertension) Brain aneurysm SAH (subarachnoid hemorrhage) Walking difficulty due to ankle and foot Hammer toe of right foot Tibialis posterior tendinopathy Posterior tibial tendinitis of right lower extremity Brain aneurysm GERD (gastroesophageal reflux disease) Osteoarthritis HLD (hyperlipidemia) Anxiety and depression HTN (hypertension) Home Medications ???Medication ???Instructions ???Recorded ???Last Taken ???Type aspirin 81 mg tablet 81 mg PO DAILY heart health Unknown History letrozole 2.5 mg tablet 2.5 mg PO DAILY 08/25/24 Unknown H istory losartan 50 mg tablet 50 mg PO DAILY 08/25/24 Unknown Hi story metformin 500 mg tablet 500 mg PO DAILY diabetes mellitus 08/25/24 Unknown History nortriptyline 50 mg capsule 100 - 150 mg PO QHS 08/25/24 Unkno wn History quetiapine 25 mg tablet 25 mg PO QHS #30 tabs 08/30/24 Unk nown Rx meclizine 25 mg chewable tablet 25 mg PO TID PRN dizziness #10 tab s 09/09/24 Unknown Rx (Antivert) Allergy/AdvReac Type Severity Reaction Status Date / Time codeine AdvReac Nausea Verified 09/08/24 22:11 fluoxetine HCl (From Prozac) AdvReac shivers Verified 09/08/24 22:11 morphine AdvReac Nausea Verified 09/08/24 22:11 Family History Mother Breast cancer Hypertension Alzheimers disease Aunt Breast cancer Father CAD (coronary artery disease) Sister Alzheimers disease Other Bleeding disorder Surgical History History of appendectomy S/P coil embolization of cerebral aneurysm History of total knee arthroplasty Hx of craniotomy Cataract extraction status H/O laser iridotomy History of hysterectomy S/P breast lumpectomy S/P coil embolization of cerebral aneurysm Social History household members: none Smoking Status: Never smoker alcohol intake: never substance use type: does not use ROS ROS ED ROS Narrative Denies recent illness and some mild nausea tonight. No vomiting or diarrhea. No melena. No headache or chest pain. No abdominal pain. Constitutional Constitutional ED: Denies chills or fever(s) Eyes Eyes: Denies blurry vision ENT ENT ED: Denies ear pain Cardiovascular Cardiovascular: Denies chest pain Respiratory/Chest Respiratory/Chest: Denies cough Gastrointestinal Gastrointestinal: Reports nausea; Denies abdominal pain, diarrhea or vomiting Genitourinary Genitourinary ED: Denies dysuria or hematuria Musculoskeletal Musculoskeletal: Denies arthralgias Integumentary Denies abscess Neurologic Neurologic: Denies headache(s) Psychiatric Psychiatric: Denies anxiety Endocrine Endocrinology: Denies cold intolerance Hematologic/Lymphatic Hematologic/Lymphatic: Reports none Allergic/Immunologic Allergic/Immunologic ED: Denies mouth swelling, tongue swelling or urticaria EXAM Physical Exam Narrative Exam Narrative: 79-year-old female sitting upright in bed. Vital signs are stable afebrile. She does not look septic toxic. No acute distress. Currently no family or friends present in the room. From a prior dictation I believe her daughters live out of town. H EENT exam pupils round react to light. Motions are intact. No facial droop. Normal speech. No trauma to her face or scalp. Nontender. No bruising. TMs are unremarkable canals are not obstructed with wax. Moist mucous membranes. Neck nontender. No lymphadenopathy. Lungs (more content not included)... Normal [facility] Eosinophil percentageOrdered By: Yossi Heredia on 09-08-2024 Eosinophils/100 WBC (Bld) 5.0 % 0-5 [facility] Erythrocyte distribution wid th ratioOrdered By: Yossi Heredia on 09-08-2024 Erythrocyte distribution width (RBC) [Ratio] 12.4 % 11.6-14.6 [facility] Erythrocyte distribution wid th standard deviationOrdered By: Yossi Heredia on 09-08-2024 Erythrocyte distribution width (RBC) [Ratio] 41.1 fl 35.1-43.9 [facility] Glomerular filtration rate ( GFR) estimation/1.73 sq m using serum, plasma, or whole bOrdered By: Yossi Heredia on 09-08-2024 GFR/1.73 sq M.predicted among non-blacks MDRD (S/P/Bld) [Vol rate/Area] 67 mL/min/{1.73_m2} >60 [facility] Comment on above: mL/min/1.73m2 CKD-EP I Creatinine Equation (2020) Hematocrit Auto (Bld) [Volum e fraction]Ordered By: Yossi Heredia on 09-08-2024 Hematocrit (Bld) [Volume fraction] 39.3 % 37-47 [facility] Hemoglobin measurementOrdere d By: Yossi Heredia on 09-08-2024 Hemoglobin (Bld) [Mass/Vol] 13.0 g/dL 12.0-15.0 [facility] Immature granulocytes/100 WB C Auto (Bld)Ordered By: Yossi Heredia on 09-08-2024 Immature granulocytes/100 WBC (Bld) 0.300 % 0.0-0.9 [facility] Comment on above: IG% - Immature Granu locytes (promyelocytes, myelocytes and metamyelocytes) > 1% indicates that a LEFT SHIFT is Present. MCV (mean corpuscular volume ) determinationOrdered By: Yossi Heredia on 09-08-2024 MCV (RBC) [Entitic vol] 91.6 fL 81-99 [facility] Mean corpuscular hemoglobin (MCH) determinationOrdered By: Yossi Heredia on 09-08-2024 MCH (RBC) [Entitic mass] 30.3 pg 27.0-32.0 [facility] Mean corpuscular hemoglobin concentration (MCHC) determinationOrdered By: Yossi Heredia on 09-08-2024 MCHC (RBC) [Mass/Vol] 33.1 g/dL 32-36 [facility] Mean platelet volume determi nationOrdered By: Yossi Heredia on 09-08-2024 Platelet mean volume (Bld) [Entitic vol] 8.8 fL 6.2-12.0 [facility] Monocyte percentageOrdered B y: Yossi Heredia on 09-08-2024 Monocytes/100 WBC (Bld) 7.8 % 0-10 [facility] Neutrophil percentageOrdered By: Yossi Heredia on 09-08-2024 Neutrophils/100 WBC (Bld) 56.0 % 47-70 [facility] Nucleated red blood cell per centageOrdered By: Yossi Heredia on 09-08-2024 Nucleated RBC/100 WBC (Bld) [Ratio] 0 % 0-5 [facility] Platelet countOrdered By: Elder Heredia on 09-08-2024 Platelets (Bld) [#/Vol] 347 10*3/uL 150-450 [facility] Potassium measurement (mass/ volume)Ordered By: Yossi Heredia on 09-08-2024 Potassium (Unsp spec) [Mass/Vol] 4.6 mmol/L 3.3-5.1 [facility] Comment on above: Hemolysis present, R esults could be affected. RBC Auto (Bld) [#/Vol]Ordere d By: Yossi Heredia on 09-08-2024 RBC (Bld) [#/Vol] 4.29 10*6/uL 4.2-5.4 [facility] Serum creatinine measurement (mass/volume)Ordered By: Yossi Heredia on 09-08-2024 Creatinine [Mass/Vol] 0.88 mg/dL 0.70-1.20 [facility] Serum glucose measurement (m ass/volume)Ordered By: Yossi Heredia on 09-08-2024 Glucose [Mass/Vol] 119 mg/dL High 70-99 [facility] Serum or plasma calcium rodríguez urement (mass/volume)Ordered By: Yossi Heredia on 09-08-2024 Calcium [Mass/Vol] 9.4 mg/dL 7.6-11.0 [facility] Serum or plasma urea nitroge n measurement (mass/volume)Ordered By: Yossi Heredia on 09-08-2024 Urea nitrogen [Mass/Vol] 20 mg/dL High - [facility] Sodium levelOrdered By: Yossi Heredia on 09-08-2024 Sodium [Moles/Vol] 138 mmol/L 133-145 [facility] White blood cell (WBC) count Ordered By: Yossi Heredia on 09-08-2024 WBC (Bld) [#/Vol] 6.4 10*3/uL 4.4-11.0 [facility] Anion gap in Serum or Plasma Ordered By: Veto Lynne on 08-30-2024 Anion gap [Moles/Vol] 12 mmol/L - [facility] BUN/creatinine ratioOrdered By: Veto Lynne on 08-30-2024 Urea nitrogen/Creatinine [Mass ratio] 25.5 mg/mg High 02-14 [facility] Basic Metabolic Profile (BMP )on 08-30-2024 BUN/CRE 25.5 RATIO High 10-20 [facility] Comment on above: Performed By: #### L 501.080 #### [facility] [address] [place], [address] Calcium [Mass/Vol] 8.9 mg/dL Normal 7.6-11.0 [facility] Comment on above: Performed By: #### L 501.080 #### [facility] [address] [place], [address] Chloride [Moles/Vol] 107 mmol/L Normal 98-108 [facility] Comment on above: Performed By: #### L 501.080 #### [facility] [address] [place], [address] CO2 [Moles/Vol] 19.7 mmol/L Low 21.0-32.0 [facility] Comment on above: Performed By: #### L 501.080 #### [facility] [address] [place], [address] Creatinine [Mass/Vol] 0.87 mg/dL Normal 0.70-1.20 [facility] Comment on above: Performed By: #### L 501.080 #### [facility] [address] [place], [address] ECRCL 49.17 ml/min Low 50-250 [facility] Comment on above: Performed By: #### L 501.080 #### [facility] [address] [place], [address] GAP 12 Normal 5-15 [facility] Comment on above: Performed By: #### L 501.080 #### [facility] [address] [place], [address] GFR/1.73 sq M.predicted among non-blacks MDRD (S/P/Bld) [Vol rate/Area] 68 mL/min/{1.73_m2} Normal >60 [facility] Comment on above: Result Comment: mL/m in/1.73m2 CKD-EPI Creatinine Equation (2020) Performed By: #### L 501.080 #### [facility] [address] [place], [address] Glucose [Mass/Vol] 132 mg/dL High 70-99 [facility] Comment on above: Performed By: #### L 501.080 #### [facility] [address] [place], [address] Potassium [Moles/Vol] 4.2 mmol/L Normal 3.3-5.1 [facility] Comment on above: Performed By: #### L 501.080 #### [facility] [address] [place], [address] Sodium [Moles/Vol] 138 mmol/L Normal 133-145 [facility] Comment on above: Performed By: #### L 501.080 #### [facility] [address] [place], [address] Urea nitrogen [Mass/Vol] 22 mg/dL High 4-19 [facility] Comment on above: Performed By: #### L 501.080 #### [facility] [address] [place], [address] CBC-Complete Blood Cnt No Di ffon 08-30-2024 Erythrocyte distribution width (RBC) [Ratio] 12.6 % Normal 11.6-14.6 [facility] Comment on above: Performed By: #### L 501.080 #### [facility] [address] [place], [address] Hematocrit (Bld) [Volume fraction] 41.9 % Normal 37-47 [facility] Comment on above: Performed By: #### L 501.080 #### [facility] [address] [place], [address] Hemoglobin (Bld) [Mass/Vol] 13.8 g/dL Normal 12.0-15.0 [facility] Comment on above: Performed By: #### L 501.080 #### [facility] [address] [place], [address] MCH (RBC) [Entitic mass] 30.3 pg Normal 27.0-32.0 [facility] Comment on above: Performed By: #### L 501.080 #### [facility] [address] [place], [address] MCHC (RBC) [Mass/Vol] 32.9 g/dL Normal 32-36 [facility] Comment on above: Performed By: #### L 501.080 #### [facility] [address] [place], [address] MCV (RBC) [Entitic vol] 91.9 fL Normal 81-99 [facility] Comment on above: Performed By: #### L 501.080 #### [facility] [address] [place], [address] Platelet mean volume (Bld) [Entitic vol] 8.2 fL Normal 6.2-12.0 [facility] Comment on above: Performed By: #### L 501.080 #### [facility] [address] [place], [address] Platelets (Bld) [#/Vol] 325 10*3/uL Normal 150-450 [facility] Comment on above: Performed By: #### L 501.080 #### [facility] [address] [place], [address] RBC (Bld) [#/Vol] 4.56 10*6/uL Normal 4.2-5.4 [facility] Comment on above: Performed By: #### L 501.080 #### [facility] [address] [place], [address] RDW SD 42.5 fl Normal 35.1-43.9 [facility] Comment on above: Performed By: #### L 501.080 #### [facility] [address] [place], [place], [id number] WBC (Bld) [#/Vol] 6.6 10*3/uL Normal 4.4-11.0 [facility] Comment on above: Performed By: #### L 501.080 #### [facility] [address] [place], [place], [id number] Carbon dioxide, total [Moles /volume] in Central venous bloodOrdered By: Veto Lynne on 08-30-2024 CO2 [Moles/Vol] 19.7 mmol/L Low 21.0-32.0 [facility] Chloride assayOrdered By: Damion Lynne on 08-30-2024 Chloride [Moles/Vol] 107 mmol/L 98-108 [facility] Erythrocyte distribution wid th ratioOrdered By: Veto Lynne on 08-30-2024 Erythrocyte distribution width (RBC) [Ratio] 12.6 % 11.6-14.6 [facility] Erythrocyte distribution wid th standard deviationOrdered By: Veto Lynne on 08-30-2024 Erythrocyte distribution width (RBC) [Ratio] 42.5 fl 35.1-43.9 [facility] Glomerular filtration rate ( GFR) estimation/1.73 sq m using serum, plasma, or whole bOrdered By: Veto Lynne on 08-30-2024 GFR/1.73 sq M.predicted among non-blacks MDRD (S/P/Bld) [Vol rate/Area] 68 mL/min/{1.73_m2} >60 [facility] Comment on above: mL/min/1.73m2 CKD-EP I Creatinine Equation (2020) Hematocrit Auto (Bld) [Volum e fraction]Ordered By: Veto Lynne on 08-30-2024 Hematocrit (Bld) [Volume fraction] 41.9 % 37-47 [facility] Hemoglobin measurementOrdere d By: Veto Lynne on 08-30-2024 Hemoglobin (Bld) [Mass/Vol] 13.8 g/dL 12.0-15.0 [facility] MCV (mean corpuscular volume ) determinationOrdered By: Veto Lynne on 08-30-2024 MCV (RBC) [Entitic vol] 91.9 fL 81-99 [facility] Mean corpuscular hemoglobin (MCH) determinationOrdered By: Veto Lynne on 08-30-2024 MCH (RBC) [Entitic mass] 30.3 pg 27.0-32.0 [facility] Mean corpuscular hemoglobin concentration (MCHC) determinationOrdered By: Veto Lynne on 08-30-2024 MCHC (RBC) [Mass/Vol] 32.9 g/dL 32-36 [facility] Mean platelet volume determi nationOrdered By: Veto Lynne on 08-30-2024 Platelet mean volume (Bld) [Entitic vol] 8.2 fL 6.2-12.0 [facility] Platelet countOrdered By: Damion Lynne on 08-30-2024 Platelets (Bld) [#/Vol] 325 10*3/uL 150-450 [facility] Potassium measurement (mass/ volume)Ordered By: Veto Lynne on 08-30-2024 Potassium (Unsp spec) [Mass/Vol] 4.2 mmol/L 3.3-5.1 [facility] RBC Auto (Bld) [#/Vol]Ordere d By: Veto Lynne on 08-30-2024 RBC (Bld) [#/Vol] 4.56 10*6/uL 4.2-5.4 [facility] Serum creatinine measurement (mass/volume)Ordered By: Veto Lynne on 08-30-2024 Creatinine [Mass/Vol] 0.87 mg/dL 0.70-1.20 [facility] Serum glucose measurement (m ass/volume)Ordered By: Veto Lynne on 08-30-2024 Glucose [Mass/Vol] 132 mg/dL High 70-99 [facility] Serum or plasma calcium rodríguez urement (mass/volume)Ordered By: Veto Lynne on 08-30-2024 Calcium [Mass/Vol] 8.9 mg/dL 7.6-11.0 [facility] Serum or plasma urea nitroge n measurement (mass/volume)Ordered By: Veto Lynne on 08-30-2024 Urea nitrogen [Mass/Vol] 22 mg/dL High - [facility] Sodium levelOrdered By: Sarbjit Lynne on 08-30-2024 Sodium [Moles/Vol] 138 mmol/L 133-145 [facility] White blood cell (WBC) count Ordered By: Veto Lynne on 08-30-2024 WBC (Bld) [#/Vol] 6.6 10*3/uL 4.4-11.0 [facility] Basic Metabolic Profile (BMP )on 08-29-2024 BUN Normal 4-19 [facility] Comment on above: Result Comment: Canshruti elled via OM: MD Ordered Performed By: #### L 500.2500 ####[facility] [address] [place], [address] BUN/CRE Normal 10-20 [facility] Comment on above: Result Comment: Canshruti elled via OM: MD Ordered Performed By: #### L 500.2500 ####[facility] [address] [place], [address] Calcium Normal 7.6-11.0 [facility] Comment on above: Result Comment: Canshruti elled via OM: MD Ordered Performed By: #### L 500.2500 ####[facility] [address] [place], [address] CL Normal 98-108 [facility] Comment on above: Result Comment: Canshruti elled via OM: MD Ordered Performed By: #### L 500.2500 ####[facility] [address] [place], [address] CO2 Normal 21.0-32.0 [facility] Comment on above: Result Comment: Kalia elled via OM: MD Ordered Performed By: #### L 500.2500 ####[facility] [address] [place], [address] CREAT,SERUM Normal 0.70-1.20 [facility] Comment on above: Result Comment: Canc elled via OM: MD Ordered Performed By: #### L 500.2500 ####[facility] [address] [place], [address] eGFR Normal >60 [facility] Comment on above: Result Comment: Canc elled via OM: MD Ordered Performed By: #### L 500.2500 ####[facility] [address] [place], [address] GAP Normal 5-15 [facility] Comment on above: Result Comment: Canc elled via OM: MD Ordered Performed By: #### L 500.2500 ####[facility] [address] [place], [address] GLU Normal 70-99 [facility] Comment on above: Result Comment: Canc elled via OM: MD Ordered Performed By: #### L 500.2500 ####[facility] [address] [place], [address] Potassium Normal 3.3-5.1 [facility] Comment on above: Result Comment: Canc elled via OM: MD Ordered Performed By: #### L 500.2500 ####[facility] [address] [place], [address] Basic Metabolic Profile (BMP) Normal 133-145 [facility] Comment on above: Result Comment: Canc elled via OM: MD Ordered Performed By: #### L 500.2500 ####[facility] [address] [place], [address] Bedside Glucoseon 08-29-2024 FINGERSTICK GLU 132 mg/dL High 74-106 [facility] Comment on above: Result Comment: SAMANTA CHEEMA OF PATIENT CARE PER NURSING PROTOCOL Performed By: #### L 501.080 ####[facility] [address] [place], [address] FINGERSTICK GLU 131 mg/dL High 74-106 [facility] Comment on above: Result Comment: SAMANTA GEMENT OF PATIENT CARE PER NURSING PROTOCOL Performed By: #### L 501.1930 #### [facility] [address] [place], [address] FINGERSTICK GLU 120 mg/dL High 74-106 [facility] Comment on above: Result Comment: SAMANTA GEMENT OF PATIENT CARE PER NURSING PROTOCOL Performed By: #### L 501.080 #### [facility] [address] [place], [address] CBC-Complete Blood Cnt No Di ffon 08-29-2024 HCT Normal 37-47 [facility] Comment on above: Result Comment: Canc elled via OM: MD Ordered Performed By: #### L 501.080 #### [facility] [address] [place], [address] HGB Normal 12.0-15.0 [facility] Comment on above: Result Comment: Canc elled via OM: MD Ordered Performed By: #### L 501.080 #### [facility] [address] [place], [address] MCH Normal 27.0-32.0 [facility] Comment on above: Result Comment: Canc elled via OM: MD Ordered Performed By: #### L 501.080 #### [facility] [address] [place], [address] MCHC Normal 32-36 [facility] Comment on above: Result Comment: Canc elled via OM: MD Ordered Performed By: #### L 501.080 #### [facility] [address] [place], [address] MCV Normal 81-99 [facility] Comment on above: Result Comment: Canc elled via OM: MD Ordered Performed By: #### L 501.080 #### [facility] [address] [place], [address] PLT Normal 150-450 [facility] Comment on above: Result Comment: Canc elled via OM: MD Ordered Performed By: #### L 501.080 #### [facility] [address] [place], [address] RBC Normal 4.2-5.4 [facility] Comment on above: Result Comment: Canc elled via OM: MD Ordered Performed By: #### L 501.080 #### [facility] [address] [place], [address] RDW CV Normal 11.6-14.6 [facility] Comment on above: Result Comment: Canc elled via OM: MD Ordered Performed By: #### L 501.080 #### [facility] [address] [place], [address] RDW SD Normal 35.1-43.9 [facility] Comment on above: Result Comment: Canc elled via OM: MD Ordered Performed By: #### L 501.080 #### [facility] [address] [place], [address] WBC Normal 4.4-11.0 [facility] Comment on above: Result Comment: Canc elled via OM: MD Ordered Performed By: #### L 501.080 #### [facility] [address] [place], [address] [facility] de[facility]dered By: Veto Lynne on 08-29-2024 Glucose [Mass/Vol] 132 mg/dL High 74-106 [facility] Comment on above: MANAGEMENT OF PATIEN T CARE PER NURSING PROTOCOL Basic Metabolic Profile (BMP )on 08-28-2024 BUN/CRE 17.3 RATIO Normal 10-20 [facility] Comment on above: Performed By: #### L 501.080 #### [facility] [address] [place], [address] Calcium [Mass/Vol] 8.7 mg/dL Normal 7.6-11.0 [facility] Comment on above: Performed By: #### L 501.080 #### [facility] [address] [place], [address] Chloride [Moles/Vol] 109 mmol/L High 98-108 [facility] Comment on above: Performed By: #### L 501.080 #### [facility] [address] [place], [address] CO2 [Moles/Vol] 23.2 mmol/L Normal 21.0-32.0 [facility] Comment on above: Performed By: #### L 501.080 #### [facility] [address] [place], [address] Creatinine [Mass/Vol] 0.87 mg/dL Normal 0.70-1.20 [facility] Comment on above: Performed By: #### L 501.080 #### [facility] [address] [place], [address] ECRCL 48.93 ml/min Low 50-250 [facility] Comment on above: Performed By: #### L 501.080 #### [facility] [address] [place], [address] GAP 8 Normal 5-15 [facility] Comment on above: Performed By: #### L 501.080 #### [facility] [address] [place], [address] GFR/1.73 sq M.predicted among non-blacks MDRD (S/P/Bld) [Vol rate/Area] 68 mL/min/{1.73_m2} Normal >60 [facility] Comment on above: Result Comment: mL/m in/1.73m2 CKD-EPI Creatinine Equation (2020) Performed By: #### L 501.080 #### [facility] [address] [place], [address] Glucose [Mass/Vol] 138 mg/dL High 70-99 [facility] Comment on above: Performed By: #### L 501.080 #### [facility] [address] [place], [address] Potassium [Moles/Vol] 4.8 mmol/L Normal 3.3-5.1 [facility] Comment on above: Performed By: #### L 501.080 #### [facility] [address] [place], [address] Sodium [Moles/Vol] 140 mmol/L Normal 133-145 [facility] Comment on above: Performed By: #### L 501.080 #### [facility] [address] [place], [address] Urea nitrogen [Mass/Vol] 15 mg/dL Normal 4-19 [facility] Comment on above: Performed By: #### L 501.080 #### [facility] [address] [place], [address] Bedside Glucoseon 08-28-2024 FINGERSTICK GLU 142 mg/dL High 74-106 [facility] Comment on above: Result Comment: SAMANTA GEMENT OF PATIENT CARE PER NURSING PROTOCOL Performed By: #### L 501.080 #### [facility] [address] [place], [address] FINGERSTICK GLU 151 mg/dL High 74-106 [facility] Comment on above: Result Comment: SAMANTA GEMENT OF PATIENT CARE PER NURSING PROTOCOL Performed By: #### L 501.080 #### [facility] [address] [place], [address] FINGERSTICK GLU 106 mg/dL Normal 74-106 [facility] Comment on above: Result Comment: SAMANTA GEMENT OF PATIENT CARE PER NURSING PROTOCOL Performed By: #### L 501.080 #### [facility] [address] [place], [address] FINGERSTICK GLU 121 mg/dL High 74-106 [facility] Comment on above: Result Comment: SAMANTA CHEEMA OF PATIENT CARE PER NURSING PROTOCOL Performed By: #### L 501.080 #### [facility] [address] [place], [address] CBC-Complete Blood Cnt No Di ffon 08-28-2024 Erythrocyte distribution width (RBC) [Ratio] 12.5 % Normal 11.6-14.6 [facility] Comment on above: Performed By: #### L 100.0500 ####[facility] [address] [place], [address] Hematocrit (Bld) [Volume fraction] 37.9 % Normal 37-47 [facility] Comment on above: Performed By: #### L 100.0500 ####[facility] [address] [place], [address] Hemoglobin (Bld) [Mass/Vol] 12.6 g/dL Normal 12.0-15.0 [facility] Comment on above: Performed By: #### L 100.0500 ####[facility] [address] [place], [address] MCH (RBC) [Entitic mass] 30.7 pg Normal 27.0-32.0 [facility] Comment on above: Performed By: #### L 100.0500 ####[facility] [address] [place], [address] MCHC (RBC) [Mass/Vol] 33.2 g/dL Normal 32-36 [facility] Comment on above: Performed By: #### L 100.0500 ####[facility] [address] [place], [address] MCV (RBC) [Entitic vol] 92.4 fL Normal 81-99 [facility] Comment on above: Performed By: #### L 100.0500 ####[facility] [address] [place], [address] Platelet mean volume (Bld) [Entitic vol] 8.2 fL Normal 6.2-12.0 [facility] Comment on above: Performed By: #### L 100.0500 ####[facility] [address] [place], [address] Platelets (Bld) [#/Vol] 274 10*3/uL Normal 150-450 [facility] Comment on above: Performed By: #### L 100.0500 ####[facility] [address] [place], [address] RBC (Bld) [#/Vol] 4.10 10*6/uL Low 4.2-5.4 [facility] Comment on above: Performed By: #### L 100.0500 ####[facility] [address] [place], [address] RDW SD 42.5 fl Normal 35.1-43.9 [facility] Comment on above: Performed By: #### L 100.0500 ####[facility] [address] [place], [address] WBC (Bld) [#/Vol] 5.8 10*3/uL Normal 4.4-11.0 [facility] Comment on above: Performed By: #### L 100.0500 ####[facility] [address] [place], [address] Urine Cultureon 08-28-2024 URC Proteus mirabilis [place] Count 25,000-50,000 Proteus mirabilis: REACTION Ampicillin Islt [place] <=2 Ampicillin+Sulbac [place] <=2 S Cefepime [place] <=0.12 S cefTRIAXone [place] <=0.25 S Ciprofloxacin [place] <=0.06 S Gentamicin [place] <=1 S levoFLOXacin [place] <=0.12 S Meropenem [place] 0.5 S Nitrofurantoin [place] R Pip+Tazo Is[place] <=4 S TMP SMX Islt [place] <=20 S Normal [facility] Comment on above: Performed By: #### M 100.2200 ####[facility] [address] [place], [address] Basic Metabolic Profile (BMP )on 08-27-2024 BUN Normal 4-19 [facility] Comment on above: Result Comment: Canc elled via OM: MD Ordered Performed By: #### L 501.080 #### [facility] [address] [place], [address] BUN/CRE Normal 10-20 [facility] Comment on above: Result Comment: Canc elled via OM: MD Ordered Performed By: #### L 501.080 #### [facility] [address] [place], [address] Calcium Normal 7.6-11.0 [facility] Comment on above: Result Comment: Canc elled via OM: MD Ordered Performed By: #### L 501.080 #### [facility] [address] [place], [address] CL Normal 98-108 [facility] Comment on above: Result Comment: Canc elled via OM: MD Ordered Performed By: #### L 501.080 #### [facility] [address] [place], [address] CO2 Normal 21.0-32.0 [facility] Comment on above: Result Comment: Canc elled via OM: MD Ordered Performed By: #### L 501.080 #### [facility] [address] [place], [address] CREAT,SERUM Normal 0.70-1.20 [facility] Comment on above: Result Comment: Canc elled via OM: MD Ordered Performed By: #### L 501.080 #### [facility] [address] [place], [address] eGFR Normal >60 [facility] Comment on above: Result Comment: Canc elled via OM: MD Ordered Performed By: #### L 501.080 #### [facility] [address] [place], [address] GAP Normal 5-15 [facility] Comment on above: Result Comment: Canc elled via OM: MD Ordered Performed By: #### L 501.080 #### [facility] [address] [place], [address] GLU Normal 70-99 [facility] Comment on above: Result Comment: Canc elled via OM: MD Ordered Performed By: #### L 501.080 #### [facility] [address] [place], [address] Potassium Normal 3.3-5.1 [facility] Comment on above: Result Comment: Canc elled via OM: MD Ordered Performed By: #### L 501.080 #### [facility] [address] [place], [address] Basic Metabolic Profile (BMP) Normal 133-145 [facility] Comment on above: Result Comment: Canc elled via OM: MD Ordered Performed By: #### L 501.080 #### [facility] [address] [place], [address] Bedside Glucoseon 08-27-2024 FINGERSTICK GLU 119 mg/dL High 74-106 [facility] Comment on above: Result Comment: SAMANTA GEMENT OF PATIENT CARE PER NURSING PROTOCOL Performed By: #### L 501.080 ####[facility] [address] [place], [address] FINGERSTICK GLU 168 mg/dL High 74-106 [facility] Comment on above: Result Comment: SAMANTA GEMENT OF PATIENT CARE PER NURSING PROTOCOL Performed By: #### L 501.080 ####[facility] [address] [place], [address] FINGERSTICK GLU 138 mg/dL High 74-106 [facility] Comment on above: Result Comment: SAMANTA GEMENT OF PATIENT CARE PER NURSING PROTOCOL Performed By: #### L 501.080 #### [facility] [address] [place], [address] FINGERSTICK GLU 125 mg/dL High 74-106 [facility] Comment on above: Result Comment: SAMANTA GEMENT OF PATIENT CARE PER NURSING PROTOCOL Performed By: #### L 501.080 ####[facility] [address] [place], [address] CBC-Complete Blood Cnt No Di ffon 08-27-2024 HCT Normal 37-47 [facility] Comment on above: Result Comment: Canc elled via OM: MD Ordered Performed By: #### L 100.0500 ####[facility] [address] [place], [address] HGB Normal 12.0-15.0 [facility] Comment on above: Result Comment: Canc elled via OM: MD Ordered Performed By: #### L 100.0500 ####[facility] [address] [place], [address] MCH Normal 27.0-32.0 [facility] Comment on above: Result Comment: Canc elled via OM: MD Ordered Performed By: #### L 100.0500 ####[facility] [address] [place], [address] MCHC Normal 32-36 [facility] Comment on above: Result Comment: Canc elled via OM: MD Ordered Performed By: #### L 100.0500 ####[facility] [address] [place], [address] MCV Normal 81-99 [facility] Comment on above: Result Comment: Canc elled via OM: MD Ordered Performed By: #### L 100.0500 ####[facility] [address] [place], [address] PLT Normal 150-450 [facility] Comment on above: Result Comment: Canc elled via OM: MD Ordered Performed By: #### L 100.0500 ####[facility] [address] [place], [address] RBC Normal 4.2-5.4 [facility] Comment on above: Result Comment: Canc elled via OM: MD Ordered Performed By: #### L 100.0500 ####[facility] [address] [place], [address] RDW CV Normal 11.6-14.6 [facility] [facility] Comment on above: Result Comment: Canc elled via OM: MD Ordered Performed By: #### L 100.0500 ####[facility] [address] [place], [address] RDW SD Normal 35.1-43.9 [facility] Comment on above: Result Comment: Canc elled via OM: MD Ordered Performed By: #### L 100.0500 ####[facility] [address] [place], [address] WBC Normal 4.4-11.0 [facility] Comment on above: Result Comment: Canc elled via OM: MD Ordered Performed By: #### L 100.0500 ####[facility] [address] [place], [address] Absolute lymphocyte countOrd ered By: Isabel Michelle on 08-26-2024 Lymphocytes Auto (Unsp spec) [#/Vol] 1.46 10*3/uL 0.83-4.51 [facility] Absolute neutrophil countOrd ered By: Isabel Michelle on 08-26-2024 Neutrophils (Bld) [#/Vol] 3.6 10*3/uL 2.0-7.7 [facility] Automated lymphocyte count a s percentage of total leukocytesOrdered By: White on 08-26-2024 Lymphocytes/100 WBC Auto (Unsp spec) 23.8 % 19-41 [facility] Basophil percentageOrdered B y: White on 08-26-2024 Basophils/100 WBC (Bld) 0.8 % 0-1 [facility] Bedside Glucoseon 08-26-2024 FINGERSTICK GLU 167 mg/dL High 74-106 [facility] Comment on above: Result Comment: SAMANTA GEMENT OF PATIENT CARE PER NURSING PROTOCOL Performed By: #### L 501.080 #### [facility] [address] [place], [address] FINGERSTICK GLU 116 mg/dL High [facility]106 [facility] Comment on above: Result Comment: SAMANTA GEMENT OF PATIENT CARE PER NURSING PROTOCOL Performed By: #### L 501.080 #### [facility] [address] [place], [address] FINGERSTICK GLU 145 mg/dL High [address] [place] [address] Comment on above: Result Comment: SAMANTA GEMENT OF PATIENT CARE PER NURSING PROTOCOL Performed By: #### L 501.080 #### [facility] [address] [place], [address] FINGERSTICK GLU 126 mg/dL High [address] [place] [address] Comment on above: Result Comment: SAMANTA GEMENT OF PATIENT CARE PER NURSING PROTOCOL Performed By: #### L 501.080 #### [facility] [address] [place], [address] Bilirubin, totalOrdered By: Isabel Viviana on 08-26-2024 Bilirubin [Mass/Vol] 0.34 mg/dL 0.00-1.30 [facility] CBC W/Diff, Automatedon Absolute Lymph 1.46 X10 3/uL Normal 0.83-4.51 [facility] Comment on above: Performed By: #### L 100.0100, L500.4050 ####[facility] [address] [place], [address] Absolute Neut 3.6 X10 3/uL Normal 2.0-7.7 [facility] Comment on above: Performed By: #### L 100.0100, L500.4050 ####[facility] [address] [place], [address] Basophils/100 WBC (Bld) 0.8 % Normal 0-1 [facility] Comment on above: Performed By: #### L 100.0100, L500.4050 ####[facility] [address] [place], [address] Eosinophils/100 WBC (Bld) 7.0 % High 0-5 [facility] Comment on above: Performed By: #### L 100.0100, L500.4050 ####[facility] [address] [place], [address] Erythrocyte distribution width (RBC) [Ratio] 12.5 % Normal 11.6-14.6 [facility] Comment on above: Performed By: #### L 100.0100, L500.4050 ####[facility] [address] [place], [address] Hematocrit (Bld) [Volume fraction] 34.6 % Low 37-47 [facility] Comment on above: Performed By: #### L 100.0100, L500.4050 ####[facility] [address] [place], [address] Hemoglobin (Bld) [Mass/Vol] 11.6 g/dL Low 12.0-15.0 [facility] Comment on above: Performed By: #### L 100.0100, L500.4050 ####[facility] [address] [place], [address] IG% 0.500 Normal 0.0-0.9 [facility] Comment on above: Result Comment: IG% - Immature Granulocytes (promyelocytes, myelocytes and metamyelocytes) > 1% indicates that a LEFT SHIFT is Present. Performed By: #### L 100.0100, L500.4050 ####[facility] [address] [place], [address] Lymphocytes/100 WBC (Bld) 23.8 % Normal 19-41 [facility] Comment on above: Performed By: #### L 100.0100, L500.4050 ####[facility] [address] [place], [address] MCH (RBC) [Entitic mass] 30.6 pg Normal 27.0-32.0 [facility] Comment on above: Performed By: #### L 100.0100, L500.4050 ####[facility] [address] [place], [address] MCHC (RBC) [Mass/Vol] 33.5 g/dL Normal 32-36 [facility] Comment on above: Performed By: #### L 100.0100, L500.4050 ####[facility] [address] [place], [address] MCV (RBC) [Entitic vol] 91.3 fL Normal 81-99 [facility] Comment on above: Performed By: #### L 100.0100, L500.4050 ####[facility] [address] [place], [address] Monocytes/100 WBC (Bld) 9.3 % Normal 0-10 [facility] Comment on above: Performed By: #### L 100.0100, L500.4050 ####[facility] [address] [place], [address] Neutrophils/100 WBC (Bld) 58.6 % Normal 47-70 [facility] Comment on above: Performed By: #### L 100.0100, L500.4050 ####[facility] [address] [place], [address] Nucleated RBC (Bld) [#/Vol] 0 10*3/uL Normal 0-5 [facility] Comment on above: Performed By: #### L 100.0100, L500.4050 ####[facility] [address] [place], [address] Platelet mean volume (Bld) [Entitic vol] 8.1 fL Normal 6.2-12.0 [facility] Comment on above: Performed By: #### L 100.0100, L500.4050 ####[facility] [address] [place], [address] Platelets (Bld) [#/Vol] 279 10*3/uL Normal 150-450 [facility] Comment on above: Performed By: #### L 100.0100, L500.4050 ####[facility] [address] [place], [address] RBC (Bld) [#/Vol] 3.79 10*6/uL Low 4.2-5.4 [facility] Comment on above: Performed By: #### L 100.0100, L500.4050 ####[facility] [address] [place], [address] RDW SD 41.5 fl Normal 35.1-43.9 [facility] Comment on above: Performed By: #### L 100.0100, L500.4050 ####[facility] [address] [place], [address] WBC (Bld) [#/Vol] 6.1 10*3/uL Normal 4.4-11.0 [facility] Comment on above: Performed By: #### L 100.0100, L500.4050 ####[facility] [address] [place], [address] CPK Total, Creatine Kinaseon 08-26-2024 CPK TOTAL 150 U/L Normal 24-195 [facility] Comment on above: Order Comment: *ADD ON- WG6/6/M N O* Performed By: #### L 501.080 #### [facility] [address] [place], [address] Comprehensive Metabolic Prof ilon 08-26-2024 Albumin [Mass/Vol] 3.2 g/dL Low 3.4-4.8 [facility] Comment on above: Performed By: #### L 100.0100, L500.4050 ####[facility] [address] [place], [address] Albumin/Globulin [Mass ratio] 1.3 {ratio} Normal 0.9-2.4 [facility] Comment on above: Performed By: #### L 100.0100, L500.4050 ####[facility] [address] [place], [address] ALK PHOS 38 U/L Normal 35-104 [facility] Comment on above: Performed By: #### L 100.0100, L500.4050 ####[facility] [address] [place], [address] ALT [Catalytic activity/Vol] 16 U/L Normal <=34 [facility] Comment on above: Performed By: #### L 100.0100, L500.4050 ####[facility] [address] [place], [address] AST [Catalytic activity/Vol] 27 U/L Normal <=31 [facility] Comment on above: Performed By: #### L 100.0100, L500.4050 ####[facility] [address] [place], [address] Bilirubin [Mass/Vol] 0.34 mg/dL Normal 0.00-1.30 [facility] Comment on above: Performed By: #### L 100.0100, L500.4050 ####[facility] [address] [place], [address] BUN/CRE 24.4 RATIO High 10-20 [facility] Comment on above: Performed By: #### L 100.0100, L500.4050 ####[facility] [address] [place], [address] Calcium [Mass/Vol] 8.4 mg/dL Normal 7.6-11.0 [facility] Comment on above: Performed By: #### L 100.0100, L500.4050 ####[facility] [address] [place], [address] Chloride [Moles/Vol] 106 mmol/L Normal 98-108 [facility] Comment on above: Performed By: #### L 100.0100, L500.4050 ####[facility] [address] [place], [address] CO2 [Moles/Vol] 20.8 mmol/L Low 21.0-32.0 [facility] Comment on above: Performed By: #### L 100.0100, L500.4050 ####[facility] [address] [place], [address] Creatinine [Mass/Vol] 1.00 mg/dL Normal 0.70-1.20 [facility] Comment on above: Performed By: #### L 100.0100, L500.4050 ####[facility] [address] [place], [address] ECRCL 42.72 ml/min Low 50-250 [facility] Comment on above: Performed By: #### L 100.0100, L500.4050 ####[facility] [address] [place], [address] GAP 10 Normal 5-15 [facility] Comment on above: Performed By: #### L 100.0100, L500.4050 ####[facility] [address] [place], [address] GFR/1.73 sq M.predicted among non-blacks MDRD (S/P/Bld) [Vol rate/Area] 58 mL/min/{1.73_m2} Low >60 [facility] Comment on above: Result Comment: mL/m in/1.73m2 CKD-EPI Creatinine Equation (2020) Performed By: #### L 100.0100, L500.4050 ####[facility] [address] [place], [address] Globulin (S) [Mass/Vol] 2.4 g/dL Normal 2.2-4.2 [facility] Comment on above: Performed By: #### L 100.0100, L500.4050 ####[facility] [address] [place], [address] Glucose [Mass/Vol] 116 mg/dL High 70-99 [facility] Comment on above: Performed By: #### L 100.0100, L500.4050 ####[facility] [address] [place], [address] Potassium [Moles/Vol] 3.9 mmol/L Normal 3.3-5.1 [facility] Comment on above: Performed By: #### L 100.0100, L500.4050 ####[facility] [address] [place], [address] Sodium [Moles/Vol] 137 mmol/L Normal 133-145 [facility] Comment on above: Performed By: #### L 100.0100, L500.4050 ####[facility] [address] [place], [address] T PROT 5.6 g/dL Low 5.9-8.4 [facility] Comment on above: Performed By: #### L 100.0100, L500.4050 ####[facility] [address] [place], [place], [address] Urea nitrogen [Mass/Vol] 24 mg/dL High 4-19 [facility] Comment on above: Performed By: #### L 100.0100, L500.4050 ####[facility] [address] [place], [place], [address] Eosinophil percentageOrdered By: Isabel Viviana on 08-26-2024 Eosinophils/100 WBC (Bld) 7.0 % High 0-5 [facility] Immature granulocytes/100 WB C Auto (Bld)Ordered By: on 08-26-2024 Immature granulocytes/100 WBC (Bld) 0.500 % 0.0-0.9 [facility] Comment on above: IG% - Immature Granu locytes (promyelocytes, myelocytes and metamyelocytes) > 1% indicates that a LEFT SHIFT is Present. Laboratory - Chemistry and C hemistry - challengeOrdered By: Isabel Viviana on 08-26-2024 AST [Catalytic activity/Vol] 27 U/L <32 [facility] Monocyte percentageOrdered B y: on 08-26-2024 Monocytes/100 WBC (Bld) 9.3 % 0-10 [facility] Neutrophil percentageOrdered By: 08-26-2024 Neutrophils/100 WBC (Bld) 58.6 % 47-70 [facility] Nucleated red blood cell per centageOrdered By: on 08-26-2024 Nucleated RBC/100 WBC (Bld) [Ratio] 0 % 0-5 [facility] Serum globulin measurementOr dered By: Viviana 08-26-2024 Globulin (S) [Mass/Vol] 2.4 g/dL 2.2-4.2 [facility] Serum or plasma alanine sanders otransferase (ALT) measurementOrdered By: Viviana 08-26-2024 ALT [Catalytic activity/Vol] 16 U/L <35 [facility] Serum or plasma albumin rodríguez urement (mass/volume)Ordered By: Isabel Viviana on 08-26-2024 Albumin [Mass/Vol] 3.2 g/dL Low 3.4-4.8 [facility] Serum or plasma albumin/glob ulin mass ratioOrdered By: Isabel Viviana on 08-26-2024 Albumin/Globulin [Mass ratio] 1.3 {ratio} 0.9-2.4 [facility] Serum or plasma alkaline justin sphatase measurementOrdered By: Isabel Viviana on 08-26-2024 ALP [Catalytic activity/Vol] 38 U/L 35-104 [facility] Total proteinOrdered By: Aut troy Michelle on 08-26-2024 Protein [Mass/Vol] 5.6 g/dL Low 5.9-8.4 [facility] 12 Lead EKGon 08-25-2024 12 Lead EKG [facility] Cardiovascular Services [address] [place] [address] 12 Lead EKG 08/25/24 2117 MR#: [id number] Acct: [id number] Name: JUDI KRAUSE Rep #: [id number] : 1945 79 From: Jone Fishman MD Attending Dr: Dr. Veto Lynne DO Status : ADM IN Ordering Dr: Hermes Salas DO Date: 08/25/24 [place] [facility] [place] Sex: F C Admitted: 08/25/24 Test Reason : Blood Pressure : */* mmHG Vent. Rate : 77 BPM Atrial Rate : 77 BPM P-R Int : 224 ms QRS Dur : 94 ms QT Int : 404 ms P-R-T Axes : 49 -2 51 degrees QTcB Int : 457 ms Sinus rhythm with 1st degree A-V block Otherwise normal ECG Confirmed by JONE FISHMAN MD ([id number]), dictionary editor APURVA CAMEJO ([id number]) on 08/26/2024 1:29:01 PM Referred By: ES Confirmed By: JONE FISHMAN MD 08/26/24 1329 Date Jone Fishman MD CC: Dr. Veto Lynne DO; Dr. Ruddy Cooper MD; Dr. Hermes Salas DO Signed Normal [facility] Activated partial thrombopla stin time (aPTT) in platelet poor plasma by coagulation aOrdered By: Hermes Salas on 08-25-2024 aPTT Coag (PPP) [Time] 25.4 s 24.1-36.2 [facility] Basic Metabolic Profile (BMP )on 08-25-2024 BUN/CRE 23.0 RATIO High 10-20 [facility] Comment on above: Performed By: #### L 501.193 #### [facility] [address] [place], [address] Calcium [Mass/Vol] 9.9 mg/dL Normal 7.6-11.0 [facility] Comment on above: Performed By: #### L 501.1929 #### [facility] [address] [place], [address] Chloride [Moles/Vol] 101 mmol/L Normal 98-108 [facility] Comment on above: Performed By: #### L 501.1929 #### [facility] [address] [place], [address] CO2 [Moles/Vol] 23.5 mmol/L Normal 21.0-32.0 [facility] Comment on above: Performed By: #### L 501.1929 #### [facility] [address] [place], [address] Creatinine [Mass/Vol] 1.25 mg/dL High 0.70-1.20 [facility] Comment on above: Performed By: #### L 501.193 #### [facility] [address] [place], [address] ECRCL 34.38 ml/min Low 50-250 [facility] Comment on above: Performed By: #### L 501.193 #### [facility] [address] [place], [address] GAP 14 Normal 5-15 [facility] Comment on above: Performed By: #### L 501.1930 #### [facility] [address] [place], [address] GFR/1.73 sq M.predicted among non-blacks MDRD (S/P/Bld) [Vol rate/Area] 44 mL/min/{1.73_m2} Low >60 [facility] Comment on above: Result Comment: mL/m in/1.73m2 CKD-EPI Creatinine Equation (2020) Performed By: #### L 501.1930 #### [facility] [address] [place], [address] Glucose [Mass/Vol] 89 mg/dL Normal 70-99 [facility] Comment on above: Performed By: #### L 501.1930 #### [facility] [address] [place], [address] Potassium [Moles/Vol] 4.7 mmol/L Normal 3.3-5.1 [facility] Comment on above: Result Comment: Hemo lysis present, Results??could be affected. ?? Performed By: #### L 501.1930 #### [facility] [address] [place], [address] Sodium [Moles/Vol] 138 mmol/L Normal 133-145 [facility] Comment on above: Performed By: #### L 501.1930 #### [facility] [address] [place], [address] Urea nitrogen [Mass/Vol] 29 mg/dL High 4-19 [facility] Comment on above: Performed By: #### L 501.1930 #### [facility] [address] [place], [address] Bilirubin Test strip Ql (U)O rdered By: Hermes Salas on 08-25-2024 Bilirubin Ql (U) Negative Negative [facility] Bilirubin directOrdered By: Hermes Salas on 08-25-2024 Bilirubin.direct [Mass/Vol] 0.13 mg/dL 0.00-0.30 [facility] Comment on above: Hemolysis present, R esults could be affected. Brain/Head without Contrasto n 08-25-2024 Brain/Head without Contrast [facility] Imaging Services [address] [place] [address] Brain/Head without Contrast MR#: [id number] Acct: [id number] Name: JUDI KRAUSE Rep #: [id number] : 1945 F 79 From: Kush calderón MD PCP: Dr. Ruddy Cooper MD Status: PRE ER Study: Brain/Head without Contrast Date of Exam: 07/29 Exam# [id number] Ordering Dr: Hermes Salas DO PROCEDURE: BRAIN/HEAD WITHOUT CONTRAST 08/25/2024 REASON FOR EXAM: TRAUMA TECHNIQUE: Head CT without intravenous contrast. Coronal and Sagittal reconstruction series were provided. One or more dose reduction techniques were used (e.g., Automated exposure control, adjustment of the mA and/or kV according to patient size, use of iterative reconstruction technique. COMPARISON: CT brain 02/08/2021 and MRI brain 05/30/2018 FINDINGS: Postoperative changes aneurysmal clipping in the left MCA and posterior communicating artery region. Extensive streak artifact, limits evaluation. No acute intracranial hemorrhage, mass, mass effect, midline shift or pathologic extra-axial fluid collection. Mild parenchymal atrophy with commensurate increase in CSF containing spaces. Left frontal lobe encephalomalacia, likely from prior insult. Ex vacuo dilatation frontal horn left lateral ventricle, from adjacent encephalomalacia. Patchy white matter hypodensities, patient demographics favor chronic microvascular ischemic changes. Paranasal sinuses and mastoid air cells are clear. Left frontal calvarial craniotomy defect. CT/Brain/Head without Contrast IMPRESSION: No acute intracranial abnormality. Postoperative changes as described above. Chronic microvascular ischemia and involutional changes. Reading Location: [facility] CC: Dr. Ruddy Cooper MD; Dr. Hermes Salas DO Director Of Strategic Marketing: Signed Normal [facility] CBC W/Diff, Automatedon 04-3 0-2024 Absolute Lymph 2.25 X10 3/uL Normal 0.83-4.51 [facility] Comment on above: Performed By: #### L 501.1929 #### [facility] [address] [place], [address] Absolute Neut 7.2 X10 3/uL Normal 2.0-7.7 [facility] Comment on above: Performed By: #### L .1929 #### [facility] [address] [place], [address] Basophils/100 WBC (Bld) 0.6 % Normal 0-1 [facility] Comment on above: Performed By: #### L .1929 #### [facility] [address] [place], [address] Eosinophils/100 WBC (Bld) 3.4 % Normal 0-5 [facility] Comment on above: Performed By: #### L 501.1929 #### [facility] [address] [place], [address] Erythrocyte distribution width (RBC) [Ratio] 12.4 % Normal 11.6-14.6 [facility] Comment on above: Performed By: #### L 501.1929 #### [facility] [address] [place], [address] Hematocrit (Bld) [Volume fraction] 39.4 % Normal 37-47 [facility] Comment on above: Performed By: #### L 501.1929 #### [facility] [address] [place], [address] Hemoglobin (Bld) [Mass/Vol] 13.3 g/dL Normal 12.0-15.0 [facility] Comment on above: Performed By: #### L .1929 #### [facility] [address] [place], [address] IG% 0.500 Normal 0.0-0.9 [facility] Comment on above: Result Comment: IG% - Immature Granulocytes (promyelocytes, myelocytes and metamyelocytes) > 1% indicates that a LEFT SHIFT is Present. Performed By: #### L .1929 #### [facility] [address] [place], [address] Lymphocytes/100 WBC (Bld) 20.8 % Normal 19-41 [facility] Comment on above: Performed By: #### L 501.1929 #### [facility] [address] [place], [address] MCH (RBC) [Entitic mass] 30.8 pg Normal 27.0-32.0 [facility] Comment on above: Performed By: #### L .1929 #### [facility] [address] [place], [address] MCHC (RBC) [Mass/Vol] 33.8 g/dL Normal 32-36 [facility] Comment on above: Performed By: #### L 501.1929 #### [facility] [address] [place], [address] MCV (RBC) [Entitic vol] 91.2 fL Normal 81-99 [facility] Comment on above: Performed By: #### L 501.1929 #### [facility] [address] [place], [address] Monocytes/100 WBC (Bld) 8.2 % Normal 0-10 [facility] Comment on above: Performed By: #### L 501 #### [facility] [address] [place], [address] Neutrophils/100 WBC (Bld) 66.5 % Normal 47-70 [facility] Comment on above: Performed By: #### L #### [facility] [address] [place], [address] Nucleated RBC (Bld) [#/Vol] 0 10*3/uL Normal 0-5 [facility] Comment on above: Performed By: #### L 501.1929 #### [facility] [address] [place], [address] Platelet mean volume (Bld) [Entitic vol] 8.8 fL Normal 6.2-12.0 [facility] Comment on above: Performed By: #### L 501.1929 #### [facility] [address] [place], [address] Platelets (Bld) [#/Vol] 341 10*3/uL Normal 150-450 [facility] Comment on above: Performed By: #### L 501.1929 #### [facility] [address] [place], [address] RBC (Bld) [#/Vol] 4.32 10*6/uL Normal 4.2-5.4 [facility] Comment on above: Performed By: #### L 501.1929 #### [facility] [address] [place], [address] RDW SD 41.2 fl Normal 35.1-43.9 [facility] Comment on above: Performed By: #### L 501.1929 #### [facility] [address] [place], [address] WBC (Bld) [#/Vol] 10.8 10*3/uL Normal 4.4-11.0 [facility] Comment on above: Performed By: #### L 501.1929 #### [facility] [address] [place], [address] CT Chest, Abd, Pel w/Contras ton 08-25-2024 CT Chest, Abd, Pel w/Contrast [facility] Imaging Services [address] [place] [address] CT Chest, Abd, Pel w/Contrast MR#: [id number] Acct: [id number] Name: JUDI KRAUSE Rep #: [id number] : 1945 F 79 From: Kush calderón MD PCP: Dr. Ruddy Cooper MD Status: REG ER Study: CT Chest, Abd, Pel w/Contrast Date of Exam: Exam# [id number] Ordering Dr: Hermes Salas DO PROCEDURE: CT CHEST, ABD, PEL W/CONTRAST 08/25/2024 REASON FOR EXAM: FALL, AMS, BACK PAIN TECHNIQUE: Chest, abdomen and pelvis CT with intravenous contrast. Coronal and Sagittal reconstruction series were provided. One or more dose reduction techniques were used (e.g., Automated exposure control, adjustment of the mA and/or kV according to patient size, use of iterative reconstruction technique. PATIENT PREPARATION: Per protocol CONTRAST: Omnipaque 350 VOLUME: 100mL choose 1 gauge IV COMPARISON: CT abdomen and pelvis 08/29/2021 FINDINGS: CT CHEST: Hardware: None Lymph nodes: No suspicious adenopathy. Heart and Vasculature: No cardiomegaly. No significant coronary artery calcifications. No pericardial effusion. Atherosclerotic calcifications of the thoracic aorta. Pulmonary arteries are unremarkable. Lungs and Airways: Central airways are patent without endobronchial lesions. Patchy opacities in the lung base, compatible with atelectasis. No focal consolidation. No suspicious pulmonary nodules. No pneumothorax. Mild biapical scarring. Bones: No suspicious osseous lesions. CT ABDOMEN/PELVIS: Liver: Homogeneous attenuation. No focal lesion. Gallbladder: No ductal dilation. No cholelithiasis. Spleen: No splenomegaly. Pancreas: Normal size without evidence of mass surrounding inflammation or ductal dilation. Adrenals: Unremarkable. Kidneys: Normal renal sizes. No hydronephrosis. Subcentimeter low-attenuation lesions, too small to characterize and likely benign. Bladder: Urinary bladder is unremarkable Reproductive Organs: No pelvic mass. Bowel: Stomach is collapsed. No bowel dilation. Extensive colonic stool with fecal impaction. Colonic diverticulosis without evidence of diverticulitis. Mild descending and proximal sigmoid wall thickening and surrounding soft tissue stranding. Appendix: The appendix is not identified. There is no inflammatory process identified in the right lower quadrant to suggest appendicitis. Lymph nodes: Unremarkable. Vasculature: The abdominal aorta and IVC are normal. Diffuse atherosclerotic calcification of the abdominal aorta and iliac arteries. Peritoneum / Retroperitoneum: No pneumoperitoneum. No ascites. Bones: Degenerative changes of the spine. CT/CT Chest, Abd, Pel w/Contrast IMPRESSION: 1. No acute findings in the chest, abdomen and pelvis. 2. Mild descending and sigmoid colon wall thickening, suggestive of underlying infectious colitis. 3. Other findings as described above. Reading [facility] CC: Dr. Ruddy Cooper MD; Dr. Hermes Salas DO Director Of Strategic Marketing: Signed Normal [facility] Emergency Department Summary on 08-25-2024 Emergency Department Summary [facility] Medical Records Department [address] [place] [id number] Emergency Department Summary 08/25/24 MR#: [id number] Acct: [id number] Name: JUDI KRAUSE Rep #: [id number] : 1945 79 From: Hermes Salas DO PCP: Dr. Ruddy Cooper MD Status:REG ER Location: ED HPI History of Present Illness Chief Complaint: Fall Narrative Narrative: Patient is a 71-year-old female with past medical anxiety, depression, migraine, type 2 diabetes, previous anterior ventricular hemorrhage status post surgery, GERD, hypertension who presented to the emergency department with a chief complaint of fall, confusion. According to the patient earlier today she fell and states that she just does not feel right. She could not further really elaborate on this. Per EMS she fell on Friday as well and refused transport to the hospital at that point in time. They state that she lives alone and they have been called out multiple times. [facility] Medical History Hoarseness History of stress test Anxiety Depression Migraines Normochromic normocytic anemia Diabetes mellitus type 2 in nonobese Hyponatremia Obstructive hydrocephalus IVH (intraventricular hemorrhage) Infiltrating ductal carcinoma of left breast HTN (hypertension) Brain aneurysm SAH (subarachnoid hemorrhage) Walking difficulty due to ankle and foot Hammer toe of right foot Tibialis posterior tendinopathy Posterior tibial tendinitis of right lower extremity Brain aneurysm GERD (gastroesophageal reflux disease) Osteoarthritis HLD (hyperlipidemia) Anxiety and depression HTN (hypertension) Home Medications ???Medication ???Instructions ???Recorded ???Last Taken ???Type aspirin 81 mg tablet 81 mg PO DAILY heart health Unknown History letrozole 2.5 mg tablet 2.5 mg PO DAILY 08/25/24 Unknown H istory losartan 50 mg tablet 50 mg PO DAILY 08/25/24 Unknown Hi story metformin 500 mg tablet 500 mg PO DAILY diabetes mellitus 08/25/24 Unknown History nortriptyline 50 mg capsule 100 - 150 mg PO QHS 08/25/24 Unkno wn History Allergy/AdvReac Type Severity Reaction Status Date / Time codeine AdvReac Nausea Verified 08/25/24 19:38 fluoxetine HCl (From Prozac) AdvReac shivers Verified 08/25/24 19:38 morphine AdvReac Nausea Verified 08/25/24 19:38 Family History Mother Breast cancer Hypertension Alzheimers disease Aunt Breast cancer Father CAD (coronary artery disease) Sister Alzheimers disease Other Bleeding disorder Surgical History History of appendectomy S/P coil embolization of cerebral aneurysm History of total knee arthroplasty Hx of craniotomy Cataract extraction status H/O laser iridotomy History of hysterectomy S/P breast lumpectomy S/P coil embolization of cerebral aneurysm Social History household members: none Smoking Status: Never smoker substance use type: does not use ROS ROS ED ROS Narrative Constitutional: Denies fever, chills, headaches, dizziness Eyes: Denies double vision blurry vision Cardiovascular: Denies chest pain Respiratory: Denies shortness of breath, cough Abdomen: Denies abdominal pain nausea vomit diarrhea : Denies urinary symptoms Neurological: Denies numbness, weakness, tingling Musculoskeletal: Complains of back pain Skin: Denies rashes or lesions EXAM Physical Exam Narrative Exam Narrative: General: Patient is lying in bed rest comfortably not appear to be in acute distress Head: Atraumatic, normocephalic Eyes: PERRL bilaterally, EOMI bilaterally, no conjunctival injection noted Neck: Soft, supple, trachea midline Cardiovascular: Regular rate and rhythm Respiratory: Clear to auscultation bilaterally Abdomen: Soft, nondistended, nontender to palpation Musculoskeletal: All bony prominence palpated joints taken full range of motion no pain elicited Extremities: +4/5 strength noted in the bilateral upper and lower extremities, radial pulses +2/4 in the bilateral extremities Neurological: Patient was able to tell me that she was at the hospital and that we were in spring. She knew that it was 2024 Skin: Warm, dry, intact no rashes lesions noted Const Vital Signs: 08/25/24 19:35 08/25/24 20:34 08/25/24 21:00 Temperature 98.4 F Temperature Source Oral Pulse Rate 88 82 77 Respiratory Rate 16 20 H 13 Blood Pressure 145/73 H 153/82 H 152/77 H Blood Pressure Mean 97 105 102 Pulse Ox 99 97 95 Oxygen Delivery Method 08/25/24 22:00 08/25/24 23:22 08/25/24 23:41 Temperature 98.4 F Temperature Source Pulse Rate 78 74 76 Respirator (more content not included)... Normal [facility] H AND P Exam - Hospitaliston 08-25-2024 H&P Exam - Hospitalist [facility] Medical Records Department [address] [place] [address] H P Exam - Hospitalist 08/25/24 2350 MR#: [id number] Acct: [id number] Name: JUDI KRAUSE Rep #: [id number] : 1945 79 From: Isabel Michelle MD PCP: Dr. Ruddy Cooper MD Status:ADM IN [place] [facility] [place] HPI - General General Date of Admission: 08/25/24 Date of Service: 08/25/24 Chief Complaint: Serial mechanical falls, unable to care for self, adult failure to thrive HPI Narrative The patient is a 79 y/o F w/ PMHx: CKD stage III unclear subtype per GFR trending, HTN, Diabetes mellitus type II, History of cerebral aneurysm with spontaneous rupture with intraventricular hemorrhage, subarachnoid hemorrhage s/p coiling and craniotomy, Hx infiltrating ductal carcinoma of the left breast, Anxiety and Depression, GERD who presents to [facility] ED on 08/25/2024 with history of significant fall history with at least 7 falls over the last 1 and half weeks with chart documented history of delusional disorder with family reporting intermittent increased confusion with recent fall on day of presentation prompting her to eventually be able to call her daughter noting to her specifically that she was having some difficulty getting herself up and requested assistance prompting her daughter to call EMS to transition her to the ED for evaluation. Workup in the ED included T98.4, heart rate 88, BP 145/73, respiratory rate 16, 99% on room air with most recent repeat vitals T97.8, heart rate 76, BP 150/73, respiratory rate 16, 98% room air, CBC with WBC 10.8, he 1 13.3, platelet 341 without marked shift, unremarkable coags, CMP with BUN/creatinine 29/1.25, GFR 44, AST 38 otherwise hepatic profile unremarkable, urinalysis with no obvious evidence of UTI, CT brain with no acute cranial finding with postop changes with chronic microvascular ischemia and involutional changes, CT cervical spine with no acute cervical fracture, degenerative changes noted, CT chest/abdomen/pelvis with with no acute findings, mild descending and sigmoid colon wall thickening. In the ED patient administered 1 L normal saline, initial concerns for possible UTI therefore patient administered Rocephin 1 g x 1. [facility] Medical History Hoarseness History of stress test Anxiety Depression Migraines Normochromic normocytic anemia Diabetes mellitus type 2 in nonobese Hyponatremia Obstructive hydrocephalus IVH (intraventricular hemorrhage) Infiltrating ductal carcinoma of left breast HTN (hypertension) Brain aneurysm SAH (subarachnoid hemorrhage) Walking difficulty due to ankle and foot Hammer toe of right foot Tibialis posterior tendinopathy Posterior tibial tendinitis of right lower extremity Brain aneurysm GERD (gastroesophageal reflux disease) Osteoarthritis HLD (hyperlipidemia) Anxiety and depression HTN (hypertension) Home Medications ???Medication ???Instructions ???Recorded ???Last Taken ???Type aspirin 81 mg tablet 81 mg PO DAILY heart health Unknown History letrozole 2.5 mg tablet 2.5 mg PO DAILY 08/25/24 Unknown H istory losartan 50 mg tablet 50 mg PO DAILY 08/25/24 Unknown Hi story metformin 500 mg tablet 500 mg PO DAILY diabetes mellitus 08/25/24 Unknown History nortriptyline 50 mg capsule 100 - 150 mg PO QHS 08/25/24 Unkno wn History Allergy/AdvReac Type Severity Reaction Status Date / Time codeine AdvReac Nausea Verified 08/25/24 19:38 fluoxetine HCl (From Prozac) AdvReac shivers Verified 08/25/24 19:38 morphine AdvReac Nausea Verified 08/25/24 19:38 Family History Mother Breast cancer Hypertension Alzheimers disease Aunt Breast cancer Father CAD (coronary artery disease) Sister Alzheimers disease Other Bleeding disorder Surgical History History of appendectomy S/P coil embolization of cerebral aneurysm History of total knee arthroplasty Hx of craniotomy Cataract extraction status H/O laser iridotomy History of hysterectomy S/P breast lumpectomy S/P coil embolization of cerebral aneurysm Social History household members: none Smoking Status: Never smoker alcohol intake: never substance use type: does not use ROS ROS Narrative Admission Review of Systems: CONSTITUTIONAL: No weight loss, fever, chills, + weakness or fatigue. HEENT: Eyes: No visual loss, blurred vision, double vision or yellow sclerae. Ears, Nose, Throat: No hearing loss, sneezing, congestion, runny nose or sore throat. SKIN: No rash or itching, lesions, wounds except + occasional stage ecchymoses, abrasions especially with recent fall history. CARDIOVASCULAR: No laurence (more content not included)... Normal [facility] International normalized rat io (INR) calculationOrdered By: Hermes Salas on 08-25-2024 INR Coag (Bld) [Relative time] 1.0 {INR} [facility] Ketones Test strip Ql (U)Ord ered By: Hermes Salas on 08-25-2024 Ketones Ql (U) 5 mg/dl High Negative [facility] Liver Profileon 08-25-2024 Albumin [Mass/Vol] 3.9 g/dL Normal 3.4-4.8 [facility] Comment on above: Performed By: #### L .1929 #### [facility] [address] [place], [address] ALK PHOS 46 U/L Normal 35-104 [facility] Comment on above: Performed By: #### L .1929 #### [facility] [address] [place], [address] ALT [Catalytic activity/Vol] 19 U/L Normal <=34 [facility] Comment on above: Performed By: #### L .1929 #### [facility] [address] [place], [address] AST [Catalytic activity/Vol] 38 U/L High <=31 [facility] Comment on above: Result Comment: Hemo lysis present, Results??could be affected. ?? Performed By: #### L 501.1929 #### [facility] [address] [place], [address] Bilirubin [Mass/Vol] 0.50 mg/dL Normal 0.00-1.30 [facility] Comment on above: Performed By: #### L .1929 #### [facility] [address] [place], [address] Bilirubin.direct [Mass/Vol] 0.13 mg/dL Normal 0.00-0.30 [facility] Comment on above: Result Comment: Hemo lysis present, Results??could be affected. ?? Performed By: #### L 501.1929 #### [facility] [address] [place], [address] Globulin (S) [Mass/Vol] 3.0 g/dL Normal 2.2-4.2 [facility] Comment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 Date/Time: Jan 06 2024 12:53P Dictated by: MONICA SAUNDERS MD This examination was interpreted and the report reviewed and electronically signed by: MONICA SAUNDERS MD on Jan 07 2024 9:09PM EST [facility] DBT Breast - bilateral scree Swetardered By: Cchermelinda Provider on 01-07-2024 [facility] DBT Breast - bilateral scree suzy 01-06-2024 Radiology Study observation (narrative) Aline bess [facility] THERAPY NTon 06-24-2024 THERAPY NT HNO ID: [id number] Author: CHARLEEN ROCHA PT Service: ? Author Type: Physical Therapist Type: Therapy (PT/OT/Speech/Resp) Filed: 10/20/2023 15:54 Note Text: Program_ID:[id number] Access Code: [email or web address] URL: [email or web address] Internet Services/ Date: 10-20-2023 Prepared By: Charleen Rocha Program Notes Exercises - Seated Transversus Abdominis Bracing with PLB - 1 x daily - 7 x weekly - 4 sets - 10 reps Normal [facility] CNOVon 10-14-2023 CNOV Office Visit (UCWSTR ) JUDI KRAUSE ([id number]) 1945 F NFR Date Time Provider Department 10/14/23 12:15 PM RUIZ SERRATO [facility] During your visit today, we recorded the following information about you: Temperature Pulse Respiration Blood pressure 97.6 degrees 105/minute 18/minute 117/79 Weight 68 kg Ruiz Serrato APRN.MANUAL LATHE OPERATOR 10/14/2023 1:36 PM Signed Subjective HPI Nontoxic-appearing female presents urgent care chief complaint left foot and ankle swelling. Duration of symptoms 2 days. Associated symptoms swelling and bruising to left foot and ankle. Patient states inverted her ankle going down the stairs. Did not experience any pain. States has neuropathy. Presents today due to persistent swelling and bruising. No other injuries. No knee hip or back pain. No head pain. Did not fall. Patient states history of hammertoe surgery to this foot. No ankle surgeries. Past medical history prescription medications allergies reviewed. 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, unspecified Dysfunction of eustachian tube Essential hypertension, benign Generalized anxiety disorder Anxiety, Generalized Internal hemorrhoids without mention of complication Lumbago Nonspecific abnormal finding in stool contents Ocular migraine Osteoporosis, unspecified Type 2 diabetes mellitus without complication, without long-term current use of insulin (HCC) Unspecified constipation Unspecified essential hypertension Varicose veins of other sites PAST SURGICAL HISTORY Procedure Laterality Date ABDOMINAL SURGERY HX 2004 tummy tuck ANESTHESIA HERNIA REPAIR LOWER ABDOMEN NOS ANKLE SURGERY HX Right 04/2019 Tendon repair BREAST LUMPECTOMY HX Left 01/2020 BREAST LUMPECTOMY HX Bilateral 01/2020 re-excision of margins COIL, EMBOLIZATION 2005 aneurysm COLONOSCOPY W/BIOPSY SINGLE/MULTIPLE 08/12/2007 FASCT PALM W/WO Z-PLASTY TISSUE REARGMT/SKN GRFT Right 01/05/2019 Right 5th finger palmar fasciectomy HAMMERTOE REVISION, ONE TOE Left 2015 HYSTERECTOMY HX 12/03/1988 IRIDOTOMY/IRIDECTOMY BY LASER Right OPEN TREATMENT,TRIMALLEOLAR ANKLE FRACTURE Right 05/29/2018 [facility] PICC LINE INSERT/CONSULT 01/23/2021 PICC LINE INSERT/CONSULT 01/29/2021 REMV CATARACT EXTRACAP,INSERT LENS Bilateral SHX CRANIOTOMY Left 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 Bahena ALLERGIES Codeine, Morphine, and Prozac [Fluoxetine] MEDICATIONS losartan (COZAAR) 50 mg tablet Take 1 tablet by mouth once daily. metFORMIN (GLUCOPHAGE) 500 mg tablet Take 1 tablet by mouth daily with breakfast. For blood sugar. Do not take this medicine if you are not eating. nortriptyline (PAMELOR) 75 mg capsule Take 1 capsule by mouth daily at bedtime. zolpidem (AMBIEN) 10 mg Take 0.5-1 tablets by mouth at bedtime as needed (insomnia) for up to 14 days. Flaxseed Oil oil 1 capsule once daily. exemestane (AROMASIN) 25 mg tablet Take 1 tablet by mouth once daily. TAKE AFTER A MEAL. flaxseed-omega3,6,9-fa tty acid 1,300-670-155 mg cap Take 1 capsule by mouth two times a day. aspirin, enteric coated (ASPIRIN, ENTERIC COATED) 81 mg EC tablet Take 81 mg by mouth once daily. ftwt-nufmi-dj0-dha-epa -fish-st (GLUCOSAMINE CHONDROITIN PLUS) 088-792-64-54 mg cap Take 1 capsule by mouth once daily. folic acid 400 mcg tablet Take 400 mcg by mouth once daily. ascorbic acid, vitamin C, (VITAMIN C) 500 mg tablet Take 500 mg by mouth once daily. Cholecalciferol, Vitamin D3, 125 mcg (5,000 unit) cap Take 5,000 Units by mouth once daily. (Patient not taking: Reported on 09/05/2023) cyanocobalamin (VITAMIN B-12) 100 mcg tab Take 100 mcg by mouth once daily. (Patient not taking: Reported on 09/05/2023) FAMILY HISTORY Problem Relation Age of Onset Breast Cancer Mother 72 Hypertension Mother Alzheimer's Disease Mother Coronary Artery Disease Father Alzheimer's Disease Sister Breast Cancer Maternal Aunt No Ocular Disease Other Social History Tobacco Use Smoking status: Never Smokeless tobacco: Never Vaping Use Vaping Use: Never used Substance Use Topics Alcohol use: No Drug use: Never BP 117/79 Pulse 105 Temp 36.4 ?C (97.6 ?F) Resp 18 Wt 68 kg (149 lb 14.6 oz) SpO2 100% BMI 26.56 kg/m? Review of Systems Constitutional: Negative for chills, fever and malaise/fatigue. HENT: N (more content not included)... Normal [facility] No Panel Informationon 10-13 IMPRESSION: NO EVIDENCE OF ACUTE FRACTURE INVOLVING THE LEFT ANKLE OR FOOT. SIGNIFICANT SOFT TISSUE SWELLING. STABLE POSTOPERATIVE HARDWARE DESCRIBED. INCREASE IN EROSIVE FINDINGS INVOLVING THE PROXIMAL INTERPHALANGEAL JOINT OF THE SECOND AND THIRD DIGITS. DEGENERATIVE CHANGES ELSEWHERE, INVOLVING MULTIPLE INTERPHALANGEAL JOINTS, HAVE MILDLY PROGRESSED. FINDINGS MAY BE SECONDARY TO EROSIVE ARTHRITIS. INFECTION IS NOT EXCLUDED.. Director Of Strategic Marketing: JOHNY Transcribe Date/Time: Oct 14 2023 1:15P Dictated by : ANTHONY NYE MD This examination was interpreted and the report reviewed and electronically signed by: ANTHONY NYE MD on Oct 14 2023 1:20PM [facility] DIVISION OF RADIOLOGY Radiology Study observation (narrative) [facility] No Panel InformationOrdered By: [facility] Provider on 10-14-2023 [facility] XR ANKLE 3V AP/LAT/OBL LTon 10-14-2023 XR ANKLE 3V AP/LAT/OBL LT * * *Final Report* * * DATE OF EXAM: Oct 14 2023 12:31PM WOX [id number] - XR ANKLE 3V AP/LAT/OBL LT / PROCEDURE REASON: multiple diagnoses * * * * Physician Interpretation * * * * Examination: XR FOOT 3V AP/LAT/OBL LT, XR ANKLE 3V AP/LAT/OBL LT History: Acute left ankle pain Foot pain, left Technique: XR FOOT 3V AP/LAT/OBL LT, XR ANKLE 3V AP/LAT/OBL LT Comparison: 10/08/2021 and 06/11/2021 RESULT: Prior osteotomy of the distal first metatarsal and proximal first phalanx. Plate and screw device overlying this region. This appears intact. No evidence of fracture or loosening. 2 screws transfixing osteotomy of the distal second metatarsal. Also intact without fracture or loosening. Erosive changes involving the proximal interphalangeal joint of the second and third digits. Some progression from the prior study. No acute fracture. Views of the left ankle reveal significant soft tissue swelling. Ankle mortise is maintained. No evidence of acute fracture. IMPRESSION: NO EVIDENCE OF ACUTE FRACTURE INVOLVING THE LEFT ANKLE OR FOOT. SIGNIFICANT SOFT TISSUE SWELLING. STABLE POSTOPERATIVE HARDWARE DESCRIBED. INCREASE IN EROSIVE FINDINGS INVOLVING THE PROXIMAL INTERPHALANGEAL JOINT OF THE SECOND AND THIRD DIGITS. DEGENERATIVE CHANGES ELSEWHERE, INVOLVING MULTIPLE INTERPHALANGEAL JOINTS, HAVE MILDLY PROGRESSED. FINDINGS MAY BE SECONDARY TO EROSIVE ARTHRITIS. INFECTION IS NOT EXCLUDED.. Director Of Strategic Marketing: PSCElizabeth Transcribe Date/Time: Oct 14 2023 1:15P Dictated by : ANTHONY NYE MD This examination was interpreted and the report reviewed and electronically signed by: ANTHONY NYE MD on Oct 14 2023 1:20PM EST [id number] Normal [facility] XR Ankle - left AP and Later al and obliqueon 10-14-2023 * * *Final Report* * * DATE OF EXAM: Oct 14 2023 12:31PM WOX 5298 - XR ANKLE 3V AP/LAT/OBL LT / PROCEDURE REASON: multiple diagnoses * * * * Physician Interpretation * * * * Examination: XR FOOT 3V AP/LAT/OBL LT, XR ANKLE 3V AP/LAT/OBL LT History: Acute left ankle pain Foot pain, left Technique: XR FOOT 3V AP/LAT/OBL LT, XR ANKLE 3V AP/LAT/OBL LT Comparison: 10/08/2021 and 06/11/2021 RESULT: Prior osteotomy of the distal first metatarsal and proximal first phalanx. Plate and screw device overlying this region. This appears intact. No evidence of fracture or loosening. 2 screws transfixing osteotomy of the distal second metatarsal. Also intact without fracture or loosening. Erosive changes involving the proximal interphalangeal joint of the second and third digits. Some progression from the prior study. No acute fracture. Views of the left ankle reveal significant soft tissue swelling. Ankle mortise is maintained. No evidence of acute fracture. DIVISION OF RADIOLOGY Provider, [facility] - 10/14/2023 * * *Final Report* * * DATE OF EXAM: Oct 14 2023 12:31PM WOX 5298 - XR ANKLE 3V AP/LAT/OBL LT / PROCEDURE REASON: multiple diagnoses * * * * Physician Interpretation * * * * Examination: XR FOOT 3V AP/LAT/OBL LT, XR ANKLE 3V AP/LAT/OBL LT History: Acute left ankle pain Foot pain, left Technique: XR FOOT 3V AP/LAT/OBL LT, XR ANKLE 3V AP/LAT/OBL LT Comparison: 10/08/2021 and 06/11/2021 RESULT: Prior osteotomy of the distal first metatarsal and proximal first phalanx. Plate and screw device overlying this region. This appears intact. No evidence of fracture or loosening. 2 screws transfixing osteotomy of the distal second metatarsal. Also intact without fracture or loosening. Erosive changes involving the proximal interphalangeal joint of the second and third digits. Some progression from the prior study. No acute fracture. Views of the left ankle reveal significant soft tissue swelling. Ankle mortise is maintained. No evidence of acute fracture. IMPRESSION IMPRESSION: NO EVIDENCE OF ACUTE FRACTURE INVOLVING THE LEFT ANKLE OR FOOT. SIGNIFICANT SOFT TISSUE SWELLING. STABLE POSTOPERATIVE HARDWARE DESCRIBED. INCREASE IN EROSIVE FINDINGS INVOLVING THE PROXIMAL INTERPHALANGEAL JOINT OF THE SECOND AND THIRD DIGITS. DEGENERATIVE CHANGES ELSEWHERE, INVOLVING MULTIPLE INTERPHALANGEAL JOINTS, HAVE MILDLY PROGRESSED. FINDINGS MAY BE SECONDARY TO EROSIVE ARTHRITIS. INFECTION IS NOT EXCLUDED.. Director Of Strategic Marketing: JOHNY Transcribe Date/Time: Oct 14 2023 1:15P Dictated by : ANTHONY NYE MD This examination was interpreted and the report reviewed and electronically signed by: ANTHONY NYE MD on Oct 14 2023 1:20PM EST [facility] XR FOOT 3V AP/LAT/OBL LTon 0 10-14-2023 XR FOOT 3V AP/LAT/OBL LT * * *Final Report* * * DATE OF EXAM: Oct 14 2023 12:31PM WOX 5336 - XR FOOT 3V AP/LAT/OBL LT / PROCEDURE REASON: multiple diagnoses * * * * Physician Interpretation * * * * Examination: XR FOOT 3V AP/LAT/OBL LT, XR ANKLE 3V AP/LAT/OBL LT History: Acute left ankle pain Foot pain, left Technique: XR FOOT 3V AP/LAT/OBL LT, XR ANKLE 3V AP/LAT/OBL LT Comparison: 10/08/2021 and 06/11/2021 RESULT: Prior osteotomy of the distal first metatarsal and proximal first phalanx. Plate and screw device overlying this region. This appears intact. No evidence of fracture or loosening. 2 screws transfixing osteotomy of the distal second metatarsal. Also intact without fracture or loosening. Erosive changes involving the proximal interphalangeal joint of the second and third digits. Some progression from the prior study. No acute fracture. Views of the left ankle reveal significant soft tissue swelling. Ankle mortise is maintained. No evidence of acute fracture. IMPRESSION: NO EVIDENCE OF ACUTE FRACTURE INVOLVING THE LEFT ANKLE OR FOOT. SIGNIFICANT SOFT TISSUE SWELLING. STABLE POSTOPERATIVE HARDWARE DESCRIBED. INCREASE IN EROSIVE FINDINGS INVOLVING THE PROXIMAL INTERPHALANGEAL JOINT OF THE SECOND AND THIRD DIGITS. DEGENERATIVE CHANGES ELSEWHERE, INVOLVING MULTIPLE INTERPHALANGEAL JOINTS, HAVE MILDLY PROGRESSED. FINDINGS MAY BE SECONDARY TO EROSIVE ARTHRITIS. INFECTION IS NOT EXCLUDED.. Director Of Strategic Marketing: JOHNY Transcribe Date/Time: Oct 14 2023 1:15P Dictated by : ANTHONY NYE MD This examination was interpreted and the report reviewed and electronically signed by: ANTHONY NYE MD on Oct 14 2023 1:20PM EST [id number] Normal [facility] XR Foot - left AP and Latera l and obliqueon 10-14-2023 * * *Final Report* * * DATE OF EXAM: Oct 14 2023 12:31PM WOX 5336 - XR FOOT 3V AP/LAT/OBL LT / PROCEDURE REASON: multiple diagnoses * * * * Physician Interpretation * * * * Examination: XR FOOT 3V AP/LAT/OBL LT, XR ANKLE 3V AP/LAT/OBL LT History: Acute left ankle pain Foot pain, left Technique: XR FOOT 3V AP/LAT/OBL LT, XR ANKLE 3V AP/LAT/OBL LT Comparison: 10/08/2021 and 06/11/2021 RESULT: Prior osteotomy of the distal first metatarsal and proximal first phalanx. Plate and screw device overlying this region. This appears intact. No evidence of fracture or loosening. 2 screws transfixing osteotomy of the distal second metatarsal. Also intact without fracture or loosening. Erosive changes involving the proximal interphalangeal joint of the second and third digits. Some progression from the prior study. No acute fracture. Views of the left ankle reveal significant soft tissue swelling. Ankle mortise is maintained. No evidence of acute fracture. DIVISION OF RADIOLOGY Provider, [facility] - 10/14/2023 * * *Final Report* * * DATE OF EXAM: Oct 14 2023 12:31PM WOX 5336 - XR FOOT 3V AP/LAT/OBL LT / PROCEDURE REASON: multiple diagnoses * * * * Physician Interpretation * * * * Examination: XR FOOT 3V AP/LAT/OBL LT, XR ANKLE 3V AP/LAT/OBL LT History: Acute left ankle pain Foot pain, left Technique: XR FOOT 3V AP/LAT/OBL LT, XR ANKLE 3V AP/LAT/OBL LT Comparison: 10/08/2021 and 06/11/2021 RESULT: Prior osteotomy of the distal first metatarsal and proximal first phalanx. Plate and screw device overlying this region. This appears intact. No evidence of fracture or loosening. 2 screws transfixing osteotomy of the distal second metatarsal. Also intact without fracture or loosening. Erosive changes involving the proximal interphalangeal joint of the second and third digits. Some progression from the prior study. No acute fracture. Views of the left ankle reveal significant soft tissue swelling. Ankle mortise is maintained. No evidence of acute fracture. IMPRESSION IMPRESSION: NO EVIDENCE OF ACUTE FRACTURE INVOLVING THE LEFT ANKLE OR FOOT. SIGNIFICANT SOFT TISSUE SWELLING. STABLE POSTOPERATIVE HARDWARE DESCRIBED. INCREASE IN EROSIVE FINDINGS INVOLVING THE PROXIMAL INTERPHALANGEAL JOINT OF THE SECOND AND THIRD DIGITS. DEGENERATIVE CHANGES ELSEWHERE, INVOLVING MULTIPLE INTERPHALANGEAL JOINTS, HAVE MILDLY PROGRESSED. FINDINGS MAY BE SECONDARY TO EROSIVE ARTHRITIS. INFECTION IS NOT EXCLUDED.. Director Of Strategic Marketing: PSCB Transcribe Date/Time: Oct 14 2023 1:15P Dictated by : ANTHONY NYE MD This examination was interpreted and the report reviewed and electronically signed by: ANTHONY NYE MD on Oct 14 2023 1:20PM EST [facility] [id number] 09-29-2023 [id number] HNO ID: [id number] Author: CHARLEEN ROCHA PT Service: ? Author Type: Physical Therapist Type: [id number] Filed: 09/29/2023 15:16 Note Text: [facility] Physical Therapy Plan of Care Certification Patient Name: Judi Krause : 1945 CC #: [id number] Date: 09/29/2023 To: Bradford Love APRN.DEFLECTOR OPERATOR From Therapist: Charleen Rocha PT RE: Patient Certification/ Recertification Your review, approval and electronic signature are required in order to comply with Payor: [employer] MEDICARE / Plan: [employer] MEDICARE PPO / Product Type: PPO / regulations. The identified Physical Therapy PLAN OF CARE for the patient is as follows: R26.9 Gait difficulty (primary encounter diagnosis) R29.898 Complaints of leg weakness PLAN OF CARE: Assessment: Judi Krause presents with diagnosis of gait difficulty and leg weakness that interferes with stair negotiation, walking, bending, walking in the community, walking in the house, rising from a chair, standing (balance,) . She presents with impairments in ADL's, balance, gait, independence in exercise, joint mobility, overall function, patient reported outcome measures, range of motion, sensation, strength, and symptom management. PROMIS? (Patient-Reported Outcomes Measurement Information System) scores were reviewed and identified as a rehabilitation concern. Prognosis for therapy is Fair due to: clinical presentation, multiple co- morbidities, chronic nature of impairments . She will benefit from skilled therapy services to meet the goals established for this plan of care as noted below. Goals for Episode of Care: created on 09/29/23 through 11/10/23 Patient will report no falls. Improve score on Timed Up and Go Test to 10 or less seconds using AD to reflect decreased fall risk. Improve score on 30 Second Chair Stand to 10 or more repetitions to reflect decreased fall risk. [place] in home exercise program including cardiovascular exercise. Patient will demonstrate independent and proper use of assisstive device to allow for improved walking quality and safety therefore reducing the risk of falls. Patient Goals: amb in her neighborhood or at the [facility] with AD for 10-15 minutes Planned Interventions, Frequency, and Duration: Current Frequency: 2x/week Duration: 6 weeks Total Number of Visits Planned: 12 Planned Treatment Interventions: Gait Training (63457), Self-fdc management (32532), Therapeutic activities (23799), Manual therapy (46680), Neuromuscular re-education (32103), Therapeutic exercise (51988) PLAN FOR NEXT VISIT: DGI and step ups Patient demonstrates good understanding of plan of care and treatment. The above goals and plan of care were discussed and agreed upon by patient/family. For further details regarding this patient refer to the Physical Therapy electronically documented visit dated 09/29/2023. Provider Attestation I have reviewed the treatment plan for Judi Krause, [facility]# [id number] for the period of 09/29/23 -- 11/03/23, established on 09/29/2023. Signature certifies the need for therapy services. Normal [facility] CNTHERAPYon 09-29-2023 CNTHERAPY OT/PT/Speech Visit (PTWS) JUDI KRAUSE ([id number]) 1945 F NFR Date Time Provider Department 09/29/23 2:00 PM CHARLEEN ROCHA PTWS Date Time Provider Department Center 09/29/2023 2:00 PM [id number] ROCHA PTWS Lesly Urias Reason for Visit: PT Nolan [[id number]] Primary Visit Diagnosis:Gait difficulty [R26.9] Other Visit Diagnosis:Complaints of leg weakness [R29.898] Allergies As of Date: 09/29/2023 Noted Allergy Reaction CODEINE 06/06/2004 8 - GI Upset MORPHINE 06/06/2004 8 - GI Upset PROZAC (FLUOXETINE) 12/26/2004 5 - Intolerance Comments: nervousness Date Reviewed: 09/25/2023 Reviewed by: Nelly Pacheco, RT(R) - Fully Assessed Prescriptions as of 09/29/2023 - losartan (COZAAR) 50 mg tablet Take 1 tablet by mouth once daily. - metFORMIN (GLUCOPHAGE) 500 mg tablet Take 1 tablet by mouth daily with breakfast. For blood sugar. Do not take this medicine if you are not eating. - nortriptyline (PAMELOR) 75 mg capsule Take 1 capsule by mouth daily at bedtime. - zolpidem (AMBIEN) 10 mg Take 0.5-1 tablets by mouth at bedtime as needed (insomnia) for up to 14 days. - Flaxseed Oil oil 1 capsule once daily. - exemestane (AROMASIN) 25 mg tablet Take 1 tablet by mouth once daily. TAKE AFTER A MEAL. - Cholecalciferol, Vitamin D3, 125 mcg (5,000 unit) cap Take 5,000 Units by mouth once daily. - flaxseed-omega3,6,9-fa tty acid 1,300-670-155 mg cap Take 1 capsule by mouth two times a day. - aspirin, enteric coated (ASPIRIN, ENTERIC COATED) 81 mg EC tablet Take 81 mg by mouth once daily. - cyanocobalamin (VITAMIN B-12) 100 mcg tab Take 100 mcg by mouth once daily. - unkr-ceglz-df6-dha-epa -fish-st (GLUCOSAMINE CHONDROITIN PLUS) 165-726-74-54 mg cap Take 1 capsule by mouth once daily. - folic acid 400 mcg tablet Take 400 mcg by mouth once daily. - ascorbic acid, vitamin C, (VITAMIN C) 500 mg tablet Take 500 mg by mouth once daily. Meds Comments as of 12/14/2016: pt only took one dose of gabapentin and felt it was too strong, felt unsteady on her feet. Elliot Banks RN December 14, 2016 1:12 PM Wheel Buffer: Therapy (PT/OT/Speech/Resp) ID: [id number] 09/29/2023 2:19 PM Author: CHARLEEN ROCHA Signed by CHARLEEN ROCHA PT on 09/29/2023 at 2:19 PM Document text: Program_ID:[id number] Access Code: [email or web address] URL: [email or web address] [employer]/ Date: 09-29-2023 Prepared By: Charleen Rocha Program Notes Exercises - Seated Heel Toe Raises - 2-3 x daily - 7 x weekly - 4 sets - 10 reps - Proper Sit to Stand Technique - 2-3 x daily - 7 x weekly - 3 sets - 5 reps - Seated Long Arc Quad - 2-3 x daily - 7 x weekly - 4 sets - 10 reps -- Normal [facility] THERAPY NTon 09-29-2023 THERAPY NT HNO ID: [id number] Author: CHARLEEN ROCHA PT Service: ? Author Type: Physical Therapist Type: Therapy (PT/OT/Speech/Resp) Filed: 09/29/2023 14:19 Note Text: Program_ID:[id number] Access Code: [email or web address] URL: [email or web address] Date: 09-29-2023 Prepared By: Charleen Rocha Program Notes Exercises - Seated Heel Toe Raises - 2-3 x daily - 7 x weekly - 4 sets - 10 reps - Proper Sit to Stand Technique - 2-3 x daily - 7 x weekly - 3 sets - 5 reps - Seated Long Arc Quad - 2-3 x daily - 7 x weekly - 4 sets - 10 reps Normal [facility] MRA BRAIN WO/W IVCONon 02-27 [facility] DBT Breast - bilateral diagn ostic for implanton 01-03-2023 * * *Final Report* * * DATE OF EXAM: Jan 03 2023 1:17PM SSW 0627 - [facility] DIAG W AVNI CHRISTOPHER / PROCEDURE REASON: multiple diagnoses * * * * Physician Interpretation * * * * RESULT: #[id number] - [facility] BREAST LTD RT #[id number] - [facility] DIAG W AVNI CHRISTOPHER BILATERAL DIGITAL DIAGNOSTIC MAMMOGRAM TOMOSYNTHESIS WITH CAD: 01/03/2023 HISTORY: Multiple Diagnoses /Palpable lump: Right breast Per clinic note dated 12/24/22: on the right there is a new 3cm horizontal area of firm tissue at 6 o'clock 2.5cmfn. Patient also reports pain in the lateral right breast. Multiple Diagnoses. RESULT: TECHNIQUE: The study was acquired using full field digital technology and interpreted from soft copy. Digital Breast Tomosynthesis (DBT) images were obtained and used to assist in the interpretation of this examination. Current study was also evaluated with a Computer Aided Detection (CAD). Comparison is made to exams dated: 07/24/2022 mammogram - [facility], 11/29/2021 [facility] - [facility], and [facility] There are scattered fibroglandular elements in both breasts. There is a post-surgical scar in the right breast at 6 o'clock middle depth. This is in the area of the reported palpable thickening at the 6:00 position. No other significant masses, calcifications, or other findings are seen in either breast. DIVISION OF RADIOLOGY Provider, [facility] - 01/03/2023 * * *Final Report* * * DATE OF EXAM: Jan 03 2023 1:17PM SSW 0627 - [facility] / PROCEDURE REASON: multiple diagnoses * * * * Physician Interpretation * * * * RESULT: #[id number] - [facility] US BREAST LTD RT #[id number] - [facility] GOL[place] CHRISTOPHER BILATERAL DIGITAL DIAGNOSTIC MAMMOGRAM TOMOSYNTHESIS WITH CAD: 01/03/2023 HISTORY: Multiple Diagnoses /Palpable lump: Right breast Per clinic note dated 12/24/22: on the right there is a new 3cm horizontal area of firm tissue at 6 o'clock 2.5cmfn. Patient also reports pain in the lateral right breast. Multiple Diagnoses. RESULT: TECHNIQUE: The study was acquired using full field digital technology and interpreted from soft copy. Digital Breast Tomosynthesis (DBT) images were obtained and used to assist in the interpretation of this examination. Current study was also evaluated with a Computer Aided Detection (CAD). Comparison is made to exams dated: 07/24/2022 mammogram - [facility], 11/29[facility]2021 [facility], and 11/28/2020 mammogram - [facility]. There are scattered fibroglandular elements in both breasts. There is a post-surgical scar in the right breast at 6 o'clock middle depth. This is in the area of the reported palpable thickening at the 6:00 position. No other significant masses, calcifications, or other findings are seen in either breast. IMPRESSION IMPRESSION: INCOMPLETE: NEEDS ADDITIONAL IMAGING EVALUATION The post-surgical scar in the right breast is indeterminate. An ultrasound is recommended. There is no abnormality seen in the right breast to correspond with the pain in the outer aspect, however, ultrasound is recommended. The area of pain is not entirely included on these mammogram images. LIMITED ULTRASOUND OF RIGHT BREAST: 01/03/2023 RESULT: Comparison is made to exams dated: 07/24/2022 mammogram - [facility], 11/29/2021 mamm[facility] - [facility], and 11/28/2020 mammogram - [facility]. Real-time ultrasound of the right breast was performed. Targeted ultrasound of the 6:00 position, 2 cm from the nipple demonstrates a 3.4 x 1.8 x 2.4 cm mixed echogenic mass. This has the appearance of an oil cyst/postsurgical change and correlates with the mammogram. Targeted ultrasound of the upper outer quadrant at the site of the patient's reported pain demonstrates no suspicious sonographic abnormality. There is a 0.5 x 0.3 x 0.6 cm intramammary lymph node at the 10:00 position, 10 cm from the nipple. Although this is in the area, the patient's area of pain is much larger than this suggesting this may be an incidental finding. IMPRESSION: BENIGN FINDING Oil cyst/postsurgical change in the 6:00 position. Benign intramammary lymph node. There is no sonographic evidence of malignancy. A 1 year screening mammogram is recommended. Enrike melgoza/nate:01/03/2023 14:33:05 Multiple national specialty organizations have released breast cancer screening guidelines for women at average risk for developing breast cancer - guidelines that are based on both evidence and opinion, yet differ on when to start and how often to screen for breast cancer. With representation from Breast Imaging, Internal Medicine, Women's Health, Family Medicine, and Medical/Surgical Oncology, the [facility] has carefully reviewed the data and reached the following consensus: 1) All women should engage in shared decision-making with their providers to decide when to start and how often to screen; 2) All women should have the opportunity to start screening mammography at age 40; 3) For women ages 45-55, we recommend annual screening mammograms; 4) For women ages 55 and over, we support both the transition from an annual to a biennial interval if this aligns more with patient's values and preferences, or continuation with annual screening; 5) All women should discuss with their providers when to stop screening mammograms. Spike Driver(s): RT Tania(R)(M), [facility]; RT Miriam(R)(M), [facility] OVERALL STUDY BIRADS: 2 Benign finding Director Of Strategic Marketing: Nate Transcribe Date/Time: Jan 03 2023 12:19P Dictated by: ENRIKE BETTS MD This examination was interpreted and the report reviewed and electronically signed by: ENRIKE BETTS MD on Jan 03 2023 2:33PM EST [facility] No Panel InformationOrdered By: [facility] Provider on 01-03-2023 [facility] No Panel Informationon 01-03 Radiology Study observation (narrative) [facility] US Breast - right limitedon 01-03-2023 * * *Final Report* * * DATE OF EXAM: Jan 03 2023 1:48PM [facility] 0[facility] - [facility] US BREAST LTD RT / PROCEDURE REASON: multiple diagnoses * * * * Physician Interpretation * * * * RESULT: #[id number] - [facility] US BREAST LTD RT #[id number] - [facility] DIAG W AVNI CHRISTOPHER BILATERAL DIGITAL DIAGNOSTIC MAMMOGRAM TOMOSYNTHESIS WITH CAD: 01/03/2023 HISTORY: Multiple Diagnoses /Palpable lump: Right breast Per clinic note dated 12/24/22: on the right there is a new 3cm horizontal area of firm tissue at 6 o'clock 2.5cmfn. Patient also reports pain in the lateral right breast. Multiple Diagnoses. RESULT: TECHNIQUE: The study was acquired using full field digital technology and interpreted from soft copy. Digital Breast Tomosynthesis (DBT) images were obtained and used to assist in the interpretation of this examination. Current study was also evaluated with a Computer Aided Detection (CAD). Comparison is made to exams dated: 07/24/2022 mammogram - [facility], [facility], and [facility] There are scattered fibroglandular elements in both breasts. There is a post-surgical scar in the right breast at 6 o'clock middle depth. This is in the area of the reported palpable thickening at the 6:00 position. No other significant masses, calcifications, or other findings are seen in either breast. DIVISION OF RADIOLOGY Provider, Joel Villagran - 01/03/2023 * * *Final Report* * * DATE OF EXAM: Jan 03 2023 1:48PM [facility] 0[facility] - [facility] US BREAST LTD RT / PROCEDURE REASON: multiple diagnoses * * * * Physician Interpretation * * * * RESULT: #[id number] - [facility] US BREAST [facility] RT #[id number] - [facility] [place] W AVNI CHRISTOPHER BILATERAL DIGITAL DIAGNOSTIC MAMMOGRAM TOMOSYNTHESIS WITH CAD: 01/03/2023 HISTORY: Multiple Diagnoses /Palpable lump: Right breast Per clinic note dated 12/24/22: on the right there is a new 3cm horizontal area of firm tissue at 6 o'clock 2.5cmfn. Patient also reports pain in the lateral right breast. Multiple Diagnoses. RESULT: TECHNIQUE: The study was acquired using full field digital technology and interpreted from soft copy. Digital Breast Tomosynthesis (DBT) images were obtained and used to assist in the interpretation of this examination. Current study was also evaluated with a Computer Aided Detection (CAD). Comparison is made to exams dated: 07/24/2022 mammogram - [facility], 11/29/2021 mammogram - [facility] [place], and 11/28/2020 mammogram - [facility]. There are scattered fibroglandular elements in both breasts. There is a post-surgical scar in the right breast at 6 o'clock middle depth. This is in the area of the reported palpable thickening at the 6:00 position. No other significant masses, calcifications, or other findings are seen in either breast. IMPRESSION IMPRESSION: INCOMPLETE: NEEDS ADDITIONAL IMAGING EVALUATION The post-surgical scar in the right breast is indeterminate. An ultrasound is recommended. There is no abnormality seen in the right breast to correspond with the pain in the outer aspect, however, ultrasound is recommended. The area of pain is not entirely included on these mammogram images. LIMITED ULTRASOUND OF RIGHT BREAST: 01/03/2023 RESULT: Comparison is made to exams dated: 07/24/2022 mammogram - [facility], 11/29/2021 mammogram - [facility] [place], and 11/28/2020 mammogram - [facility]. Real-time ultrasound of the right breast was performed. Targeted ultrasound of the 6:00 position, 2 cm from the nipple demonstrates a 3.4 x 1.8 x 2.4 cm mixed echogenic mass. This has the appearance of an oil cyst/postsurgical change and correlates with the mammogram. Targeted ultrasound of the upper outer quadrant at the site of the patient's reported pain demonstrates no suspicious sonographic abnormality. There is a 0.5 x 0.3 x 0.6 cm intramammary lymph node at the 10:00 position, 10 cm from the nipple. Although this is in the area, the patient's area of pain is much larger than this suggesting this may be an incidental finding. IMPRESSION: BENIGN FINDING Oil cyst/postsurgical change in the 6:00 position. Benign intramammary lymph node. There is no sonographic evidence of malignancy. A 1 year screening mammogram is recommended. Enrike melgoza/nate:01/03/2023 14:33:05 Multiple national specialty organizations have released breast cancer screening guidelines for women at average risk for developing breast cancer - guidelines that are based on both evidence and opinion, yet differ on when to start and how often to screen for breast cancer. With representation from Breast Imaging, Internal Medicine, Women's Health, Family Medicine, and Medical/Surgical Oncology, the [facility] has carefully reviewed the data and reached the following consensus: 1) All women should engage in shared decision-making with their providers to decide when to start and how often to screen; 2) All women should have the opportunity to start screening mammography at age 40; 3) For women ages 45-55, we recommend annual screening mammograms; 4) For women ages 55 and over, we support both the transition from an annual to a biennial interval if this aligns more with patient's values and preferences, or continuation with annual screening; 5) All women should discuss with their providers when to stop screening mammograms. Spike Driver(s): Samaria Sierra RT(R)(M), [facility]; Apurva Kelley RT(R)(M), [facility] OVERALL STUDY BIRADS: 2 Benign finding Director Of Strategic Marketing: Nate Transcribe Date/Time: Jan 03 2023 12:19P Dictated by: ENRIKE BETTS MD This examination was interpreted and the report reviewed and electronically signed by: ENRIKE BETTS MD on Jan 03 2023 2:33PM EST [facility] WILLIE DIAG W AVNI LEFTon 07-24 [facility] MRA BRAIN WO/W IVCONon 02-18 [facility] WILLIE SCREENING W TOMOon 11-29 [facility] CBC panel Auto (Bld)on 10-17 Erythrocyte distribution width (RBC) [Ratio] 12.8 % 11.5 - 15.0 % [facility] Hematocrit (Bld) [Volume fraction] 43.9 % 36.0 - 46.0 % [facility] Hemoglobin (Bld) [Mass/Vol] 14.2 g/dL 11.5 - 15.5 g/dL [facility] MCH (RBC) [Entitic mass] 30.2 pg 26.0 - 34.0 pg [facility] MCHC (RBC) [Mass/Vol] 32.3 g/dL 30.5 - 36.0 g/dL [facility] MCV (RBC) [Entitic vol] 93.4 fL 80.0 - 100.0 fL [facility] Nucleated RBC (Bld) [#/Vol] <0.01 k/uL [facility] Platelet mean volume (Bld) [Entitic vol] 8.7 fL Low 9.0 - 12.7 fL [facility] Platelets (Bld) [#/Vol] 313 10*3/uL 150 - 400 k/uL [facility] RBC (Bld) [#/Vol] 4.70 10*6/uL 3.90 - 5.2 0 m/uL [facility] WBC (Bld) [#/Vol] 7.03 10*3/uL 3.70 - 11. 00 k/uL [facility] Comprehensive metabolic 2000 panelon 10-17-2021 Albumin [Mass/Vol] 4.2 g/dL 3.9 - 4.9 g/dL [facility] ALP [Catalytic activity/Vol] 51 U/L 34 - 123 U/L [facility] ALT [Catalytic activity/Vol] 20 U/L 7 - 38 U/L [facility] Anion gap [Moles/Vol] 15 mmol/L 9 - 18 mmol/L [facility] AST [Catalytic activity/Vol] 28 U/L 13 - 35 U/L [facility] Bilirubin [Mass/Vol] 0.4 mg/dL 0.2 - 1 .3 mg/dL [facility] Calcium [Mass/Vol] 10.3 mg/dL High 8.5 - 10. 2 mg/dL [facility] Chloride [Moles/Vol] 102 mmol/L 97 - 10 5 mmol/L [facility] CO2 [Moles/Vol] 22 mmol/L 22 - 30 mmol/L [facility] Creatinine [Mass/Vol] 0.83 mg/dL 0.58 - 0.96 mg/dL [facility] Estimated Glomerular Filtration Rate 74 mL/min/1.73m >=60 mL/min/1.73m [facility] Glucose [Mass/Vol] 151 mg/dL High 74 - 99 mg/dL [facility] Potassium [Moles/Vol] 5.0 mmol/L 3.7 - 5.1 mmol/L [facility] Protein [Mass/Vol] 7.1 g/dL 6.3 - 8.0 g/dL [facility] Sodium [Moles/Vol] 139 mmol/L 136 - 144 mmol/L [facility] Urea nitrogen [Mass/Vol] 19 mg/dL 7 - 21 mg/dL [facility] HbA1c (Bld)on 10-17-2021 Average glucose Estimated from glycated hemoglobin (Bld) [Mass/Vol] 140 mg/dL [facility] HbA1c (Bld) [Mass fraction] 6.5 % High 4.3 - 5.6 % [facility] LIPID PANEL, NONFASTINGon Cholesterol [Mass/Vol] 240 mg/dL High <200 mg/dL [facility] HDL Cholesterol, Nonfasting 39 mg/dL Low >39 mg/dL [facility] LDL Cholesterol, Nonfasting 148 mg/dL High <100 mg/dL [facility] LDL/HDL Ratio, Nonfasting 3.79 mg/dL High <2.54 mg/dL [facility] Non HDL Cholesterol, Nonfasting 201 mg/dL High <130 mg/dL [facility] Total Chol/HDL Ratio, Nonfasting 6.15 mg/dL High <5.10 mg/dL [facility] Triglycerides, Nonfasting 266 mg/dL High <150 mg/dL [facility] VLDL Cholesterol, Nonfasting 53 mg/dL High <30 mg/dL [facility] VITAMIN D 25 HYDROXYon 10-17 25-hydroxyvitamin D3 [Mass/Vol] 42.7 ng/mL 31.0 - 80.0 ng/mL [facility] XR ANKLE GENERAL 3V AP/LAT/O BL RIGHTon 10-08-2021 [facility] XR Ankle - right AP and Late ral and obliqueon 10-08-2021 IMPRESSION: 1. Postsurgical and remote posttraumatic changes, as described. 2.Inferior long screw transfixing the syndesmosis is fractured. Director Of Strategic Marketing: PSCB Transcribe Date/Time: Oct 08 2021 12:38P Dictated by : VETO BENAVIDES MD This examination was interpreted and the report reviewed and electronically signed by: VETO BENAVIDES MD on Oct 08 2021 12:41PM EST [email or web address] _DIVISION OF RADIOLOGY * * *Final Report* * * DATE OF EXAM: Oct 08 2021 12:30PM WOX [id number] - XR ANKLE 3V AP/LAT/OBL RT / PROCEDURE REASON: Acute right ankle pain * * * * Physician Interpretation * * * * CLINICAL INDICATION: Pain TECHNIQUE: 3 view radiographic study of the right ankle COMPARISON: Correlation made to right foot radiograph dated October [id number] FINDINGS: Lateral plate and multiple screw device transfixes the distal fibula including 2 long screws transfixing the syndesmosis. The inferior long screw transfixing the syndesmosis is fractured. There is posttraumatic deformity of the distal fibula and tibia with cortical thickening. No acute fracture or dislocation identified. 2 screws also seen transfixing the calcaneus without radiographic evidence of hardware complications. Miniscule dorsal calcaneal enthesophyte. Mild tarsal degenerative changes with dorsal hypertrophic spurring. [email or web address] _DIVISION OF RADIOLOGY Provider, [facility] * * *Final Report* * * DATE OF EXAM: Oct 08 2021 12:30PM WOX [id number] - XR ANKLE 3V AP/LAT/OBL RT / PROCEDURE REASON: Acute right ankle pain * * * * Physician Interpretation * * * * CLINICAL INDICATION: Pain TECHNIQUE: 3 view radiographic study of the right ankle COMPARISON: Correlation made to right foot radiograph dated October [id number] FINDINGS: Lateral plate and multiple screw device transfixes the distal fibula including 2 long screws transfixing the syndesmosis. The inferior long screw transfixing the syndesmosis is fractured. There is posttraumatic deformity of the distal fibula and tibia with cortical thickening. No acute fracture or dislocation identified. 2 screws also seen transfixing the calcaneus without radiographic evidence of hardware complications. Miniscule dorsal calcaneal enthesophyte. Mild tarsal degenerative changes with dorsal hypertrophic spurring. IMPRESSION IMPRESSION: 1. Postsurgical and remote posttraumatic changes, as described. 2.Inferior long screw transfixing the syndesmosis is fractured. Director Of Strategic Marketing: JOHNY Transcribe Date/Time: Oct 08 2021 12:38P Dictated by : VETO BENAVIDES MD This examination was interpreted and the report reviewed and electronically signed by: VETO BENAVIDES MD on Oct 08 2021 12:41PM EST [facility] Radiology Study observation (narrative) [facility] XR Ankle - right AP and Late ral and obliqueOrdered By: [facility] Provider on 10-08-2021 [facility] Absolute lymphocyte counton 08-29-2021 Lymphocytes Auto (Unsp spec) [#/Vol] 1.10 10*3/uL 0.83-4.51 [facility] Work Phone: Basophil percentageon 2021 Basophils/100 WBC (Bld) 0.3 % 0-1 [facility] Work Phone: Chloride [Moles/Vol] 105 mmol/L 98-107 [facility] Work Phone: Eosinophils/100 WBC (Bld) 1.5 % 0-5 [facility] Work Phone: Glucose [Mass/Vol] 145 mg/dL 74-106 [facility] Work Phone: Comment on above: Fasting Glucose resu lt greater than or equal to 126 mg/dL suggests DIABETES MELLITUS per A.D.A. criteria. Neutrophils (Bld) [#/Vol] 4.8 10*3/uL 2.0-7.7 [facility] Work Phone: Neutrophils/100 WBC (Bld) 72.7 % 47-70 [facility] Work Phone: Potassium [Moles/Vol] 4.8 mmol/L 3.5-5.1 [facility] Work Phone: Comment on above: Moderate Hemolysis, Result may be falsely increased. Sodium [Moles/Vol] 138 mmol/L 136-145 [facility] Work Phone: WBC (Bld) [#/Vol] 6.6 10*3/uL 4.4-11.0 [facility] Work [facility]: Basophil percentage 0 SEEN /hpf [facility] Work Phone: Bilirubin Test strip Ql (U)o n 08-29-2021 Bilirubin Ql (U) Negative Negative [facility] Work Phone: [phone] Blood erythrocytes count (nu mber/volume)on 08-29-2021 RBC (Bld) [#/Vol] 4.55 10*6/uL 4.2-5.4 [facility]: Blood hemoglobin measurement (mass/volume)on 08-29-2021 Hemoglobin (Bld) [Mass/Vol] 13.9 g/dL 12.0-15.0 [facility] Work Phone: Blood lymphocytes/100 leukoc yteson 08-29-2021 Lymphocytes/100 WBC (Bld) 16.6 % 19-41 [facility] Work Phone: Blood monocytes/100 leukocyt eson 08-29-2021 Monocytes/100 WBC (Bld) 8.6 % 0-10 [facility] Work Phone: [phone] Blood platelet mean volumeon 08-29-2021 Platelet mean volume (Bld) [Entitic vol] 8.5 fL 6.2-12.0 [facility] Work Phone: Determination of erythrocyte mean corpuscular volume (MCV)on 08-29-2021 MCV (RBC) [Entitic vol] 87.5 fL 81-99 [facility] Work Phone: Hematocrit Auto (Bld) [Volum e fraction]on 08-29-2021 Hematocrit (Bld) [Volume fraction] 39.8 % 37-47 [facility] Work Phone: Ketones Test strip Ql (U)on 08-29-2021 Ketones Ql (U) Negative Negative [facility] Work Phone: Laboratory - Chemistry and C hemistry - challengeon 08-29-2021 CO2 [Moles/Vol] 27.0 mmol/L 21.0-32.0 [facility] Work Phone: [phone] Urea nitrogen/Creatinine [Mass ratio] 15.2 mg/mg 10-20 [facility] Work Phone: [phone] Laboratory - Hematology and Cell countson 08-29-2021 Erythrocyte distribution width (RBC) [Entitic vol] 40.8 fL 35.1-43.9 [facility] Work Phone: [phone] Erythrocyte distribution width (RBC) [Ratio] 12.7 % 11.6-14.6 [facility] Work Phone: [phone] Immature granulocytes/100 WBC (Bld) 0.300 % 0.0-0.9 [facility] Work Phone: [phone] Comment on above: IG% - Immature Granu locytes (promyelocytes, myelocytes and metamyelocytes) > 1% indicates that a LEFT SHIFT is Present. MCH (RBC) [Entitic mass] 30.5 pg 27.0-32.0 [facility] Work Phone: [phone] Nucleated RBC/100 WBC (Bld) [Ratio] 0 % 0-5 [facility] Work Phone: [phone] MCHC Auto (RBC) [Mass/Vol]on 08-29-2021 MCHC (RBC) [Mass/Vol] 34.9 g/dL 32-36 [facility] Work Phone: [phone] Mucus LM Ql (Urine sed)on Mucus Ql (Urine sed) 0 SEEN /hpf [facility] Work Phone: [phone] Nitrite Test strip Ql (U)on 08-29-2021 Nitrite Ql (U) Negative Negative [facility] Work Phone: [phone] No Panel Informationon 08-29 Estimated Creatinine Clearance Calc 38.29 ml/min [facility] Work Phone: [phone] Estimated GFR (MDRD) Amer 66 mL/min >60 [facility] Work Phone: [phone] Comment on above: GFR Calc Estimated GFR (MDRD) Non-Af Amer 54 mL/min >60 [facility] Work Phone: Comment on above: Non- GFR Calc Platelets bldon 08-29-2021 Platelets (Bld) [#/Vol] 324 10*3/uL 150-450 [facility] Work Phone: Protein Test strip Ql (U)on 08-29-2021 Protein Ql (U) Negative Negative [facility] Work Phone: Serum or plasma calcium rodríguez urement (mass/volume)on 08-29-2021 Calcium [Mass/Vol] 9.8 mg/dL 8.5-10.1 [facility] Work Phone: Serum or plasma creatinine m easurement (mass/volume)on 08-29-2021 Creatinine [Mass/Vol] 1.05 mg/dL 0.55-1.02 [facility] Work Phone: Comment on above: The validity of the calculated GFR & GFRAA in patients over 70 years has not been determined. Clinical correlation is essential. Serum or plasma urea nitroge n measurement (mass/volume)on 08-29-2021 Urea nitrogen [Mass/Vol] 16 mg/dL 7-18 [facility] Work Phone: Squamous epithelial cells de tection in urine sediment by light microscopyon 08-29-2021 Epithelial cells.squamous LM Ql (Urine sed) 0 SEEN /hpf [facility] Work Phone: Thin prep Papanicolaou smear with manual screeningon 08-29-2021 Thin prep Papanicolaou smear with manual screening 6 5-15 [facility] Work Phone: Urine blood detectionon 05- RBC Ql (U) 250 /ul Negative [facility] Work Phone: [phone] RBC Ql (U) 10-25 SEEN /hpf [facility] Work Phone: Urine clarityon 08-29-2021 Clarity (U) Cloudy Clear [facility] Work Phone: [phone] Urine color determinationon 08-29-2021 Color (U) Yellow Yellow [facility] Work Phone: Urine glucose detectionon Glucose Ql (U) Normal mg/dl Normal [facility] Work Phone: Urine leukocyte esterase det ection by dipstickon 08-29-2021 Leukocyte esterase Test strip Ql (U) 25 /ul Negative [facility] Work Phone: Urine pHon 08-29-2021 pH (U) 8.0 [pH] [facility] Work Phone: Urine sediment bacteria coun t by microscopy (number/high power field)on 08-29-2021 Bacteria LM.HPF (Urine sed) [#/Area] 1 /[HPF] None Seen [facility] Work Phone: Urine specific gravity measu rementon 08-29-2021 Specific gravity (U) [Rel density] 1.015 [facility] Work Phone: Urobilinogen Auto test strip Ql (U)on 08-29-2021 Urobilinogen Ql (U) Normal mg/dl Normal [facility] Work Phone: XR KNEE 3V AP/LAT/MERCHANT R Ton 08-07-2021 XR KNEE 3V AP/LAT/MERCHANT RT * * *Final Report* * * DATE OF EXAM: Aug 07 2021 1:09PM BRADLY 5209 - XR KNEE 3V AP/LAT/MERCHANT RT / PROCEDURE REASON: M25.561-Right knee pain, unspecified chronicity * * * * Physician Interpretation * * * * XR KNEE 3V AP/LAT/MERCHANT RT EXAM DATE/TIME: 08/07/2021 1:09 PM HISTORY: 76 years old Clinical information: Right knee pain, unspecified chronicity RIGHT KNEE POST-OP AP bilateral wt bearing TECHNIQUE: Images: XR KNEE 3V AP/LAT/MERCHANT RT Comparison: 09/05/2020 RESULT: Findings: Right :No fractures or dislocations are seen. The components of the RIGHT total knee arthroplasty are in good alignment with the respective bones and each other. There is no evidence of loosening of the components. Left :No fractures or dislocations are seen. Moderate narrowing medial compartment IMPRESSION: Stable TKA Director Of Strategic Marketing: JOHNY Transcribe Date/Time: Aug 07 2021 1:41P Dictated by : MAR LOPEZ DO This examination was interpreted and the report reviewed and electronically signed by: MAR LOPEZ DO on Aug 07 2021 1:42PM EST [id number] Normal [facility] XR KNEE POST OP 3V AP/LAT/ME RCHANT RIGHTon 08-07-2021 [facility] MRA BRAIN WO/W IVCONon 07-03 MRA BRAIN WO/W IVCON * * *Final Report* * * DATE OF EXAM: Jul 03 2021 11:20AM [facility] 0273 - MRA BRAIN WO/W IVCON / 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 Nonruptured cerebral aneurysm. TECHNIQUE: Intracranial 3D reyp-ya-xoietd MRA and post contrast T1 SPGR images through the proximal intracranial vasculature. 3D maximum intensity projection images were created, reviewed and archived . Additional diffusion weighted images of the brain were also obtained. MQ: [id number]_4 Contrast: IV 12 ml of Dotarem COMPARISON: 08/01/2020 and 11/18/2018 MRA exams and multiple prior noncontrast head CT examinations, 07/10/2015 brain MRI without and with contrast RESULT: Within the constraints of susceptibility artifact from the aneurysm clips, there is no apparent restricted diffusion to suggest an acute cranial process. Right frontal approach catheter tract from remote right frontal ventricular catheter placement. Remote lacunar insult in the right posterior frontal hanson radiata. Left pterional craniotomy with encephalomalacia in the left orbital frontal region. 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 Anterior Circulation: The partially imaged portions of the distal most extracranial ICAs appear patent. Patent intracranial right ICA, although portions of the clinoid segments are partially obscured by streak artifact from the adjacent aneurysm clip. The intracranial left ICA is shown to be patent to the level of the mid cavernous segment, with the distal portions completely obscured by susceptibility artifact from the adjacent aneurysm clip. Unremarkable appearance of the right MCA. Near complete obscuration of the proximal left MCA secondary to adjacent streak artifact with only subtle trace proximal flow signal (series 4, image 39), but otherwise no demonstrable flow within the left MCA vasculature until the distal most portions of the M2 branch vessels within the sylvian fissure which is substantially less than that seen on the contralateral side. Postcontrast images show robust enhancement in the left carotid terminus and extending into the proximal left MCA with otherwise normal postcontrast enhancement of the M2 and M3 branch vessels on the left which appears symmetric with the right. Markedly diminutive caliber of the right A1 segment. No clearly visualized left A1 segment. There appears to be proximal high-grade stenosis involving the proximal portions of the incompletely visualized 80 segment of the left JOSSELIN with diminutive caliber of the partially imaged portions of the vessel otherwise. The incompletely visualized portions of the right A2 and A3 segments appear patent. Postcontrast images show dominant appearance of the left A1 segment and slightly smaller caliber right A1 segment with the JOSSELIN completely obscured in the proximal A2 segments partially obscured, but otherwise appearing patent and symmetric appearance of the A2 and A3 segments and remainder of the pericallosal and callosal marginal branches. Posterior Circulation: Patent partially imaged intracranial vertebral arteries. Patent basilar artery and proximal bilateral anterior inferior cerebellar arteries. Aneurysmal outpouching along the junction of the distal basilar artery and contiguous with portions of the bilateral P1 segments as well as giving rise to the right superior cerebellar artery with the adjacent susceptibility artifact within the coil mass obscuring portions of the proximal left superior subarticular artery. The posterior cerebral arteries appear patent bilaterally, however there is mild luminal irregularity and narrowing of the P2 and P3 segments bilaterally, more pronounced on the right. Relative to the 08/01/2020 exam, there is substantially diminished flow signal within the aneurysm with the residual measuring only approximately 7 x 5 x 6 mm, previously approximately 8 x 5 x 10 mm when measured in a similar manner. Postcontrast images show residual enhancement of the aneurysm neck which appears to give rise to the bilateral proximal P1 segments as well as the left superior cerebellar artery. Stable tiny infundibular prominence at the left P1/P2 junction suspected to relate to an otherwise poorly visualized posterior commuting indicating artery. IMPRESSION: Reduced overall size of the flow signal within the aneurysm at the distal basilar at the junction of the civil engineering project manager and left SCA. The residual portions of the aneurysm neck give rise to the bilateral P1 segments of the left SCA. Suboptimal evaluation of the left greater than right distal ICAs and the gabe (more content not included)... Normal [facility] CBC and Differentialon 03-14 Abs Baso 0.03 k/uL Normal <0.11 [facility] Comment on above: Performed By: #### C BCDIF MG1, CMP ####[facility] [id number] [place] [address] Abs Thayer 0.68 k/uL Normal <0.87 [facility] Comment on above: Performed By: #### C BCDIHermelinda MG1, CMP ####[facility] [id number] [place] [address] Abs Neut 4.92 k/uL Normal 1.45-7.50 [facility] Comment on above: Performed By: #### Shruti BCVIKTOR MG1, CMP ####[place] [address] Absolute nRBC <0.01 Normal <0.01 [facility] Comment on above: Performed By: #### Shruti BCMARTHAF MG1, CMP ####[place] [address] Basophils/100 WBC (Bld) 0.4 % Normal [facility] Comment on above: Performed By: #### Shruti BCDIF MG1, CMP ####[place] [address] DTYPE Auto Diff Normal [facility] Comment on above: Performed By: #### Shruti BCDIF, MG1, CMP ####[place] [address] Eosinophils (Bld) [#/Vol] 0.15 10*3/uL Normal <0.46 [facility] Comment on above: Performed By: #### Shruti BCDIF, MG1, CMP ####[facility] [id number] [place] [address] Eosinophils/100 WBC (Bld) 2.1 % Normal [facility] Comment on above: Performed By: #### Shruti BCDIF MG1, CMP ####[facility] [id number] [place] [address] Erythrocyte distribution width (RBC) [Ratio] 12.4 % Normal 11.5-15.0 [facility] Comment on above: Performed By: #### C BCDIF, MG1, CMP ####[facility] [id number] [place] [address] Hematocrit (Bld) [Volume fraction] 42.2 % Normal 36.0-46.0 [facility] [facility] Comment on above: Performed By: #### C BCDIF, MG1, CMP ####[facility] [address] [place] [address] Hemoglobin (Bld) [Mass/Vol] 13.9 g/dL Normal 11.5-15.5 [facility] Comment on above: Performed By: #### C BCDIF, MG1, CMP ####[place] [address] Lymphocytes (Bld) [#/Vol] 1.41 10*3/uL Normal 1.00-4.00 [facility] Comment on above: Performed By: #### C BCDIF, MG1, CMP ####[facility] [address] [place] [address] Lymphocytes/100 WBC (Bld) 19.6 % Normal [facility] Comment on above: Performed By: #### C BCDIF, MG1, CMP ####[facility] [address] [place] [address] MCH 31.2 pG Normal 26.0-34.0 [facility] Comment on above: Performed By: #### C BCDIF, MG1, CMP ####[facility] [address] [place] [address] MCHC (RBC) [Mass/Vol] 32.9 g/dL Normal 30.5-36.0 [facility] Comment on above: Performed By: #### C BCDIF, MG1, CMP ####[facility] [address] [place] [address] MCV (RBC) [Entitic vol] 94.6 fL Normal 80.0-100.0 [facility] Comment on above: Performed By: #### C DEREK MG1, CMP ####[facility] Ywmavbbfar3764 [address] Monocytes/100 WBC (Bld) 9.4 % Normal [facility] Comment on above: Performed By: #### Shruti REED MG1, CMP ####[facility] Nbrsfgzbzx1673 [address] Neutrophils/100 WBC (Bld) 68.5 % Normal [facility] Comment on above: Performed By: #### C DEREK MG1, CMP ####[facility] [address] [place] [address] NRBCs 0.0 /100 WBC Normal 0 [facility] Comment on above: Performed By: #### Shruti REED MG1, CMP ####[facility] [address] [place], [place] [id number] Platelet mean volume (Bld) [Entitic vol] 8.6 fL Low 9.0-12.7 [facility] Comment on above: Performed By: #### Shruti REED MG1, CMP ####[facility] [address] [place] [address] Platelets (Bld) [#/Vol] 349 10*3/uL Normal 150-400 [facility] Comment on above: Performed By: #### Shruti REED MG1, CMP ####[facility] [address] [place], [place] [id number] RBC (Bld) [#/Vol] 4.46 10*6/uL Normal 3.90-5.20 [facility] Comment on above: Performed By: #### Shruti REED, MG1, CMP ####[facility] [address] [place], [place] [phone] WBC (Bld) [#/Vol] 7.21 10*3/uL Normal 3.70-11.00 [facility] Comment on above: Performed By: #### Shruti SMILEYF, MG1, CMP ####[facility] [address] [place] [address] CT ABD/PEL WO IVCONon 2020 CT ABD/PEL WO IVCON * * *Final Report* * * DATE OF EXAM: Mar 14 2021 4:19PM [facility] [place], [place] 0531 - CT ABD/PEL WO IVCON / PROCEDURE REASON: Infection, abdomen-pelvis * * * * Physician Interpretation * * * * EXAMINATION: CT ABDOMEN AND PELVIS WITHOUT IV CONTRAST CLINICAL HISTORY: Infection, abdomen-pelvis POST PE STUDY ONE HR AGO TECHNIQUE: Non-IV contrast imaging of the abdomen and pelvis was performed using standard technique, scanning from just above the dome of the diaphragm to the symphysis pubis. Unenhanced imaging is limited for the evaluation of some intra-abdominal and pelvic pathology. MQ: CTAPWO_3 Contrast: IV: None : ml of CT Radiation dose: Integrated Dose-length product (DLP) for this visit = 375 mGy*cm. CT Dose Reduction Employed: Automated exposure control(AEC) and iterative recon COMPARISON: None. RESULT: Abdomen / Pelvis: Liver: Unremarkable. Biliary: The gallbladder is unremarkable. No biliary ductal dilatation is identified. Spleen: No splenomegaly. Pancreas: Unremarkable. Adrenals: No mass. Kidneys: No hydronephrosis is identified. There is contrast noted in the renal collecting systems from the patient's prior CT of the chest. GI Tract: No evidence of bowel obstruction. Scattered colonic diverticula are noted. No CT evidence of diverticulitis. The appendix is not identified. A moderate amount of stool is noted in the colon. Lymph Nodes: No lymphadenopathy. Mesentery/peritoneum: No ascites. Retroperitoneum: No mass. Vasculature: Arterial atherosclerotic disease without aneurysm. Pelvis: No mass or ascites. Bones/Soft Tissues: No acute abnormality. Small bilateral inguinal hernias are noted containing fat. Post surgical changes are noted in the right breast. Lower thorax: Minimal linear densities are noted in the right lower lobe suggestive of atelectasis. Blending Plant Operator (topogram) images: IMPRESSION: 1. No acute intra-abdominal/pelvic abnormalities are identified. 2. Diverticulosis. Director Of Strategic Marketing: PSCB Transcribe Date/Time: Mar 14 2021 4:21P Dictated by : NORRIS HERNÁNDEZ MD This examination was interpreted and the report reviewed and electronically signed by: NORRIS HERNÁNDEZ MD on Mar 14 2021 4:33PM EST [id number] [facility] CT CHEST W IVCON PEon 2020 CT CHEST W IVCON PE * * *Final Report* * * DATE OF EXAM: Mar 14 2021 3:01PM [facility] [place] [place] 0540 - CT CHEST W IVCON PE / PROCEDURE REASON: PE suspected, high pretest prob * * * * Physician Interpretation * * * * EXAMINATION: CHEST CT WITH CONTRAST (PULMONARY EMBOLISM PROTOCOL) CLINICAL HISTORY: PE suspected, high pretest prob Technique: Spiral CT acquisition of the chest from the thoracic inlet to the upper abdomen following IV contrast. Axial 1 and 3 mm thick slices plus coronal and sagittal reformatted images. MQ: CTCP_5 Contrast: 80 mL Omnipaque [address] Radiation dose: Integrated Dose-length product (DLP) for this visit = 267 mGy*cm CT Dose Reduction Employed: Automated exposure control(AEC) and iterative recon Comparison: No relevant prior studies available. RESULT: Limitations: None. Evaluation for thromboembolic disease: - Right heart chambers: No thromboembolic disease. - Main pulmonary arteries: No thromboembolic disease. - Lobar pulmonary arteries: No thromboembolic disease. - Segmental pulmonary arteries: No thromboembolic disease. - Subsegmental pulmonary arteries: No thromboembolic disease. - Additional pulmonary artery findings: The main pulmonary artery is normal in caliber. Lines, tubes, and devices: None. Lung parenchyma and airways: No consolidation. No suspicious pulmonary nodule. The central airways are patent. Pleural space: No pleural effusion. No pleural thickening. Lower neck, lymph nodes, and mediastinum: The imaged thyroid gland is normal. No lymphadenopathy in the supraclavicular, axillary, mediastinal, or hilar regions. Heart, pericardium, and thoracic vessels: The thoracic aorta is normal in caliber. There are a few atherosclerotic calcifications of the thoracic aorta. The cardiac chambers are normal in size. No coronary artery atherosclerotic calcifications are noted, although the study is not optimized for coronary assessment. No pericardial effusion or thickening. Bones and soft tissues: No destructive bone lesion. Kyphosis and degenerative disease of the thoracic spine. Chest wall is unremarkable. Upper abdomen: No abnormality in the imaged upper abdomen. Blending Plant Operator (topogram) images: No additional findings. IMPRESSION: No CT evidence of pulmonary embolism. No acute chest pathology. Director Of Strategic Marketing: JOHNY Transcribe Date/Time: Mar 14 2021 3:23P Dictated by : CANDE WEAVER MD This examination was interpreted and the report reviewed and electronically signed by: CANDE WEAVER MD on Mar 14 2021 3:30PM EST [id number] Normal [facility] Cepheid Bill only (EXCFR)on 03-14-2021 Cepheid Bill only (EXCFR) Billed for services performed Normal [facility] Comment on above: Performed By: #### C FRCEP, EXCFR ####[facility] [address] [place] [address] Comp Metabolic Panelon 03-14 Albumin [Mass/Vol] 4.4 g/dL Normal 3.9-4.9 [facility] Comment on above: Performed By: #### C BCDIF, MG1, CMP ####[facility] [address] [place] [address] ALP [Catalytic activity/Vol] 52 U/L Normal 34-123 [facility] Comment on above: Performed By: #### C BCDIF, MG1, CMP ####[facility] [address] [place] [address] ALT [Catalytic activity/Vol] 27 U/L Normal 7-38 [facility] Comment on above: Performed By: #### C BCDIF, MG1, CMP ####[facility] [address] [place] [address] Anion gap [Moles/Vol] 15 mmol/L Normal 9-18 [facility] Comment on above: Performed By: #### C BCDIF, MG1, CMP ####[facility] [address] [place] [address] AST [Catalytic activity/Vol] 27 U/L Normal 13-35 [facility] Comment on above: Performed By: #### C BCDIF, MG1, CMP ####[facility] Nvstaiimcb9959 [address] Bilirubin [Mass/Vol] 0.4 mg/dL Normal 0.2-1.3 [facility] Comment on above: Performed By: #### C BCDIF, MG1, CMP ####[facility] Fpoupsdibi0117 [address] Calcium [Mass/Vol] 10.0 mg/dL Normal 8.5-10.2 [facility] Comment on above: Performed By: #### C BCDIF, MG1, CMP ####[facility] [address] [place] [address] Chloride [Moles/Vol] 100 mmol/L Normal 97-105 [facility] Comment on above: Performed By: #### C DEREK MG1, CMP ####[facility] [address] [place] [id number] CO2 [Moles/Vol] 23 mmol/L Normal 22-30 [facility] Comment on above: Performed By: #### C DEREK MG1, CMP ####[facility] [address] [place] [address] Creatinine [Mass/Vol] 0.73 mg/dL Normal 0.58-0.96 [facility] Comment on above: Performed By: #### C DEREK MG1, CMP ####[facility] [address] [place] [address] eGFR- Amer. >60 Normal [facility] Comment on above: Performed By: #### C DEREK MG1, CMP ####[facility] [address] [place] [address] eGFR-All Other Races >60 Normal [facility] Comment on above: Result Comment: eGFR (Estimated GFR) Units of measure: mL/min/1.73 meters squared eGFR is derived from the reexpressed MDRD Study equation using the following parameters: serum creatinine, age, gender and race. The creatinine assay has been calibrated to be traceable to IDMS. An eGFR <60 mL/min/1.73m2 for >3 months is consistent with chronic kidney disease. Refer to KDOQI guidelines for clinical interpretation. In patients with unstable renal function, e.g. those with acute kidney injury, the eGFR may not accurately reflect actual GFR. Performed By: #### C BCDIF MG1, CMP ####[facility] [address] [place] [id number] Glucose [Mass/Vol] 128 mg/dL High 74-99 [facility] Comment on above: Result Comment: The [place] Diabetes Association (ADA) provides guidance for cutoff values for fasting glucose and random glucose. The ADA defines fasting as no caloric intake for at least 8 hours. Fasting plasma glucose results between 100 to 125 mg/dL indicate increased risk for diabetes (prediabetes). Fasting plasma glucose results greater than or equal to 126 mg/dL meet the criteria for diagnosis of diabetes. In the absence of unequivocal hyperglycemia, results should be confirmed by repeat testing. In a patient with classic symptoms of hyperglycemia or hyperglycemic crisis, random plasma glucose results greater than or equal to 200 mg/dL meet the criteria for diagnosis of diabetes. Reference: Standards of Medical Care in Diabetes 2016, [place] Diabetes Association. Diabetes Care. 2016.39(Suppl 1). Performed By: #### C BCDIF, MG1, CMP ####[facility] [address] [place] [address] Potassium [Moles/Vol] 4.3 mmol/L Normal 3.7-5.1 [facility] Comment on above: Performed By: #### C BCDIF MG1, CMP ####[facility] [address] [place] [address] Protein [Mass/Vol] 7.0 g/dL Normal 6.3-8.0 [facility] Comment on above: Performed By: #### C BCDIF, MG1, CMP ####[facility] [address] [place] [address] Sodium [Moles/Vol] 138 mmol/L Normal 136-144 [facility] Comment on above: Performed By: #### C BCDIF, MG1, CMP ####[facility] [address] [place] [address] Urea nitrogen [Mass/Vol] 18 mg/dL Normal 7-21 [facility] Comment on above: Performed By: #### C BCDIF, MG1, CMP ####[facility] [address] [place] [address] ED NOTEon 03-14-2021 ED NOTE HNO ID: [id number] Author: Luis M Ward RN Service: ? Author Type: Registered Nurse Type: ED Notes Filed: 03/14/2021 5:12 PM Note Text: Pt given discharge instructions, pt verbalized understanding and importance of follow up care, pt ambulatory at bedside, pt discharged without incident. Normal [facility] ED NOTE HNO ID: [id number] Author: Corinne Conway RN Service: ? Author Type: Registered Nurse Type: ED Notes Filed: 03/14/2021 12:48 PM Note Text: Pt to ED with SOB for the last 6 days and elevated HR. Went to [facility] and sent to ED for evaluation. Denies pain. Normal [facility] ED PROV NOTEon 03-14-2021 ED PROV NOTE HNO ID: [id number] Author: Ilia Montgomery MD Service: ? Author Type: Physician Type: ED Provider Notes Filed: 03/14/2021 10:33 PM Note Text: ED Continuation of Care Note March 14, 2021 3:41 PM Judi Krause was endorsed to me by Dr. Saenz . The patient initially presented to the ED for Ms. Krause is a 76 yo F presenting today with recent aneurysm repair by Dr. Jones because an aneurysm she had had coiled initially in 2014 was growing, actually had some rupture during the procedure, then spent about a week in the ICU, now presenting because she had for 5 days of worsening breathing issues and tachycardia while trying to get therapy at home after she left rehab 2 weeks ago. She notes some abdominal discomfort as well on my initial assessment, though she denied nausea or vomiting. Signout note reviewed Diagnostics were reviewed. Santizo findings: CT no PE, CBC and CMP ok, trop/bnp/lipase/CT abd/pelvis pending New Physical Exam findings: no distress Clinical Course: UA ok, covid-19 negative, CMP ok, CBC ok, Plan: reassuring w/u, home /w close f/u. ED Course as of 03/14/21 1652 Ilia Montgomery's Documentation Wed Mar 14, 2021 1515 ECG sinus tachycardia @ 105 bpm 1st degree block no STEMI Others' Documentation FriMar 14, 2021 1256 EKG ED EKG INTERPRETATION: Sinus tachycardia at 105 beats per minute Left axis deviation 1st degree AV block Nonspecific ST-T changes. No acute injury pattern. Interpretation by ED physician Changed from prior EKG which showed sinus rhythm with PVC. First-degree AV block is new. [BT] ED Course User Index [BT] Florin Barksdale DO Clinical Impressions as of 03/14/21 1652 Dyspnea, unspecified type Tachycardia Ilia Montgomery MD March 14, 2021 3:41 PM Ilia Montgomery MD 03/14/21 2233 Normal [facility] ED PROV NOTE HNO ID: [id number] Author: Vielka Saenz DO Service: Emergency Medicine Author Type: Physician Type: ED Provider Notes Filed: 03/19/2021 11:32 AM Note Text: ED Provider Note Patient Name: Judi Krause SERVICE DATE: 03/14/21 History Patient presents with: Shortness of Breath Tachycardia: HR 12 Ms. Steward is a 76-year-old female with a past medical history of essential hypertension, brain aneurysm, type 2 diabetes who presents to the ED with chief complaint of SOB, and tachycardia x6 days. She is accompanied by her son. She states that she was recently hospitalized for web embolization Of brain aneurism on 01/22/2021 complicated by intra procedural contrast extravasation. Her hospital stay was for 11 days. She was then in rehab for about 40 days and was recently discharged back home within the past 2 weeks. She states that 6 days ago she began having shortness of breath that is worse with exertion and relieved with rest. She states she has not been able to do her normal activities at home due to the shortness of breath. She has not taken any upvb-zew-kwgmlxi medications for symptoms. Her son took her to urgent care just prior to arrival where they noticed she was tachycardic at triage. They sent her here to the ED. She denies any other complaints at this time. She denies fever, chills, nausea, vomiting, diarrhea, headache, dizziness, weakness, cough, nasal congestion, abdominal pain, chest pain, chest palpitations, increased urinary urgency, urinary frequency, hematuria, dysuria,diziness History provided by: Medical records, relative and patient chute tapper used: No PAST MEDICAL HISTORY Diagnosis Date - Anatomical narrow angle glaucoma - Aneurysm (HCC) 4 ruptured - BCC (basal cell carcinoma), trunk chest; Dr. To Zuleta (derm) treated 07/25/16 biopsy followed by cryo - Benign neoplasm of colon - Degeneration of intervertebral disc, site unspecified - Depressive disorder, not elsewhere classified Depression (non-psychotic) - Disorder of bone and cartilage, unspecified - Dysfunction of eustachian tube - Essential hypertension, benign - Generalized anxiety disorder Anxiety, Generalized - Internal hemorrhoids without mention of complication - Lumbago - Nonspecific abnormal finding in stool contents - Ocular migraine - Osteoporosis, unspecified - Type 2 diabetes mellitus without complication, without long-term current use of insulin (HCC) - Unspecified constipation - Unspecified essential hypertension - Varicose veins of other sites PAST SURGICAL HISTORY Procedure Laterality Date - ABDOMINAL SURGERY HX 2004 tummy tuck - ANKLE SURGERY HX Right 04/2019 Tendon repair - BREAST LUMPECTOMY HX Left 01/2020 - BREAST LUMPECTOMY HX Bilateral 01/2020 re-excision of margins - COIL, EMBOLIZATION 2004 aneurysm - COLONOSCOPY W/BX 08/12/2007 - HAMMERTOE REVISION, ONE TOE Left 2015 - HYSTERECTOMY HX 12/03/1988 - IRIDOTOMY/IRIDECTOMY BY LASER Right - OPEN TREATMENT,TRIMALLEOLAR ANKLE FRACTURE Right 05/29/2018 [facility] [place] FASCIECTOMY Right 01/05/2019 Right 5th finger palmar fasciectomy - PICC LINE INSERT/CONSULT 01/23/2021 - PICC LINE INSERT/CONSULT 01/29/2021 - NM ANESTH,REPAIR LO ABD HERNIA NOS - REMV CATARACT EXTRACAP,INSERT LENS Bilateral - SHX CRANIOTOMY Left 2005 aneurysm - TOTAL KNEE REPLACEMENT Right 07/2020 - VEIN SURGERY (SPECIFY LOCATION) HX [address] Dr. Bahena FAMILY HISTORY Problem Relation Age of Onset - Breast Cancer Mother 72 - Hypertension Mother - Alzheimer's Disease Mother - Coronary Artery Disease Father - Alzheimer's Disease Sister - Breast Cancer Maternal Aunt - No Ocular Disease Other Social History Tobacco Use - Smoking status: Never Smoker - Smokeless tobacco: Never Used Vaping Use - Vaping Use: Never used Substance and Sexual Activity - Alcohol use: No - Drug use: Never - Sexual activity: Not Currently Partners: Male control/protection: Surgical ALLERGIES Allergen Reactions - Codeine GI Upset - Morphine GI Upset - Prozac [Fluoxetine] Intolerance nervousness Review of Systems Constitutional: Positive for activity change. Negative for chills and fever. HENT: Negative for congestion, rhinorrhea, sore throat and voice change. Eyes: Negative for redness and visual disturbance. Respiratory: Positive for shortness of breath. Negative for cough and wheezing. Cardiovascular: Negative for chest pain, palpitations and leg swelling. Gastrointestinal: Negative for abdominal distention, abdominal pain, blood in stool, constipation, diarrhea, nausea and vomiting. Genitourinary: Negative for dysuria, frequency, hematuria and urgency. Musculoskeletal: Negative for arthralgias, back pain and myalgias. Skin: Negative for rash and wound. Neurological: Negative for dizziness, weakness, light-headedness, numbness and headaches. Physical (more content not included)... Normal [facility] EXCOVD, Flu A/B, RSV (On int erfaces 1102,1120)on 03-14-2021 Influenza A PCR Negative Normal [facility] Comment on above: Performed By: #### C FRCEP, EXCFR ####[facility] [address] [place] [address] Influenza B PCR Negative [facility] Comment on above: Performed By: #### C FRCEP, EXCFR ####[place] [address] RSV PCR Negative [facility] Comment on above: Result Comment: This test has been authorized by [facility] under an Emergency Use Authorization (EUA). Performed By: #### C FRCEP, EXCFR ####[place] [address] SARS-CoV-2 (COVID-19) RNA DUSTIN+probe Ql (Unsp spec) UPPER RESPIRATORY TRACT SWAB Normal [facility] Comment on above: Performed By: #### C FRCEP, EXCFR ####[place] [address] SARS-CoV-2 (COVID-19) RNA DUSTIN+probe Ql (Unsp spec) Negative for COVID19 (SARS CoV2) by RT-PCR or equivalent method. Normal Negative for COVID19 (SARS CoV2) by RT-PCR or equivalent method. [facility] Comment on above: Result Comment: This test has been authorized by [facility] under an Emergency Use Authorization (EUA). Performed By: #### C FRCEP, EXCFR ####[facility] [address] [place], [place] [phone] Lipaseon 03-14-2021 Lipase [Catalytic activity/Vol] 54 U/L Normal 16-61 [facility] Comment on above: Performed By: #### L IPA ####[address] Magnesiumon 03-14-2021 Magnesium [Mass/Vol] 2.1 mg/dL Normal 1.7-2.3 [facility] Comment on above: Performed By: #### C BCDIF, MG1, CMP ####[facility] [address] [place] [address] NT Pro BNPon 03-14-2021 PRO B Natr Peptide <50 Normal <450 [facility] Comment on above: Performed By: #### N TBNP ####[facility] [address] [place] [address] Troponin Ton 03-14-2021 Troponin T <0.010 Normal 0.000-0.029 [facility] Comment on above: Performed By: #### T NT ####[facility] [address] [place] [address] Urinalysison 03-14-2021 Bilirubin, Urine Negative Normal Negative [facility] Comment on above: Performed By: #### U A ####[place] [address] Clarity (U) Clear Normal Clear [facility] Comment on above: Performed By: #### U A ####[place] [address] Color (U) Yellow Normal Yellow [facility] Comment on above: Performed By: #### U A ####[facility] [address] [place] [address] Comments SEE COMMENT Normal [facility] Comment on above: Result Comment: Best practice alert: to ensure optimal and accurate results, transfer urine specimens to an appropriate urine preservative tube. Performed By: #### U A ####[facility] [address] [place] [address] Glucose Ql (U) Negative Normal Negative [facility] Comment on above: Performed By: #### U A ####[facility] [address] [place] [address] Hemoglobin/Blood,Ur Negative Normal Negative [facility] Comment on above: Performed By: #### U A ####[place] [address] Ketones Ql (U) Negative Normal Negative [facility] Comment on above: Performed By: #### U A ####[facility] [address] [place] [address] Leukest Negative Normal Negative [facility] Comment on above: Performed By: #### U A ####[facility] [address] [place] [address] Nitrite Ql (U) Negative Normal Negative [facility] Comment on above: Performed By: #### U A ####[facility] [address] [place] [address] pH (U) 6.0 [pH] Normal 5.0-8.0 [facility] Comment on above: Performed By: #### U A ####[facility] [address] [place] [address] Protein, Urine Negative Normal Negative [facility] Comment on above: Performed By: #### U A ####[facility] [address] [place] [address] Specific [place], Ur <=1.005 Normal 1.005-1.030 [facility] Comment on above: Performed By: #### U A ####[place] [address] Urobilinogen Qn (U) 0.2 {Cuco'U}/dL Normal 0.2-1.0 [facility] Comment on above: Performed By: #### U A ####[facility] [address] [place] [address] APTTon 01-08-2021 aPTT Coag (Bld) [Time] 23.6 s Normal 23.0-32.4 [facility] Comment on above: Result Comment: Unfr actionated Heparin Therapeutic Ranges: Standard Heparin Nomogram: 53 to 78 seconds (anti-Xa level of 0.3 to 0.7 U/ml) Low Dose/ACS Nomogram: 49 to 67 seconds (anti-Xa level of 0.2 to 0.5 U/ml) Stroke Treatment Nomogram: 49 to 67 seconds (anti-Xa level of 0.2 to 0.5 U/ml) Note: The APTT therapeutic range has been determined for the current lot of laboratory APTT reagent in use throughout the [facility]. Performed By: #### C BC, PT, PTT, BMP ####[facility] [address] [place] [address] ASP/NATIVIDAD Resist Panelon 01-08 ADP Max Aggreg 17 % Max Low 65-93 [facility] Comment on above: Performed By: #### A SPCLP ####[facility] [address] [place], [place] [phone] Arach Max Aggreg 11 % Max Low 75-100 [facility] Comment on above: Performed By: #### A SPCLP ####[facility] [place], [place] [phone] Interpretation (NOTE) Normal [facility] Comment on above: Result Comment: Perf orming Pathologist: Katharine Owens Interpretation: Abnormal - see comment below. The platelet aggregation study is abnormal and suggests combined therapy with aspirin and clopidogrel. If the patient is on aspirin therapy, the degree of platelet inhibition indicates aspirin responsiveness because the arachidonic acid aggregation is <20 percent and the ADP aggregation is <70 percent. These parameters were developed at the [facility] utilizing the assay and reagents performed on this patient's platelets. Ana M VELA. Trace Alberts. Manda VELA. Viviana UMAÑA. A prospective, blinded determination of the natural history of aspirin resistance among stable patients with cardiovascular disease. Journal of the [place] College [employer]. 41(6):961-5, 2003. There is a decrease in ADP-induced platelet aggregation. Guidelines for optimal platelet inhibition during clopidogrel therapy have not been well-established. However, if the patient is currently receiving clopidogrel therapy, the results suggest clopidogrel response. No prior aspirin/clopidogrel results are available for comparison with the current study. The medication record indicates therapy with aspirin at 325 mg/day plus clopidogrel at 75 mg/day. Please correlate these laboratory results with clinical findings and medication history. Performed By: #### A SPCLP ####[facility] [address] [place], [place] [phone] Basic Metabolic Panlon 01-08 Anion gap [Moles/Vol] 9 mmol/L Normal 9-18 [facility] Comment on above: Performed By: #### C BC, PT, PTT, BMP ####[facility] [address] [place], [place] [phone] Calcium [Mass/Vol] 9.4 mg/dL Normal 8.5-10.2 [facility] Comment on above: Performed By: #### C BC, PT, PTT, BMP ####[facility] [address] [place] [address] Chloride [Moles/Vol] 100 mmol/L Normal 97-105 [facility] Comment on above: Performed By: #### C BC, PT, PTT, BMP ####[facility] [address] [place] [phone] CO2 [Moles/Vol] 28 mmol/L Normal 22-30 [facility] Comment on above: Performed By: #### C BC, PT, PTT, BMP ####[facility] [address] [place] [address] Creatinine [Mass/Vol] 0.77 mg/dL Normal 0.58-0.96 [facility] Comment on above: Performed By: #### C BC, PT, PTT, BMP ####[facility] [address] [place] [address] eGFR- Amer. >60 Normal [facility] Comment on above: Performed By: #### C BC, PT, PTT, BMP ####[facility] [address] [place] [address] eGFR-All Other Races >60 Normal [facility] Comment on above: Result Comment: eGFR (Estimated GFR) Units of measure: mL/min/1.73 meters squared eGFR is derived from the reexpressed MDRD Study equation using the following parameters: serum creatinine, age, gender and race. The creatinine assay has been calibrated to be traceable to IDMS. An eGFR <60 mL/min/1.73m2 for >3 months is consistent with chronic kidney disease. Refer to KDOQI guidelines for clinical interpretation. In patients with unstable renal function, e.g. those with acute kidney injury, the eGFR may not accurately reflect actual GFR. Performed By: #### C BC, PT, PTT, BMP ####[facility] [address] [place] [phone] Glucose [Mass/Vol] 134 mg/dL High 74-99 [facility] Comment on above: Result Comment: The [place] Diabetes Association (ADA) provides guidance for cutoff values for fasting glucose and random glucose. The ADA defines fasting as no caloric intake for at least 8 hours. Fasting plasma glucose results between 100 to 125 mg/dL indicate increased risk for diabetes (prediabetes). Fasting plasma glucose results greater than or equal to 126 mg/dL meet the criteria for diagnosis of diabetes. In the absence of unequivocal hyperglycemia, results should be confirmed by repeat testing. In a patient with classic symptoms of hyperglycemia or hyperglycemic crisis, random plasma glucose results greater than or equal to 200 mg/dL meet the criteria for diagnosis of diabetes. Reference: Standards of Medical Care in Diabetes 2016, [place] Diabetes Association. Diabetes Care. 2016.39(Suppl 1). Performed By: #### C BC, PT, PTT, BMP ####[place] [address] Potassium [Moles/Vol] 4.9 mmol/L Normal 3.7-5.1 [facility] Comment on above: Performed By: #### C BC, PT, PTT, BMP ####[place] [address] Sodium [Moles/Vol] 137 mmol/L Normal 136-144 [facility] Comment on above: Performed By: #### C BC, PT, PTT, BMP ####[place] [address] Urea nitrogen [Mass/Vol] 21 mg/dL Normal 7-21 [facility] Comment on above: Performed By: #### C BC, PT, PTT, BMP ####[place] [address] CBCon 01-08-2021 Absolute nRBC <0.01 Normal <0.01 [facility] Comment on above: Performed By: #### C BC, PT, PTT, BMP ####[place] [address] Erythrocyte distribution width (RBC) [Ratio] 13.2 % Normal 11.5-15.0 [facility] Comment on above: Performed By: #### C BC, PT, PTT, BMP ####[place] [address] Hematocrit (Bld) [Volume fraction] 40.0 % Normal 36.0-46.0 [facility] Comment on above: Performed By: #### C BC, PT, PTT, BMP ####[place] [address] Hemoglobin (Bld) [Mass/Vol] 12.8 g/dL Normal 11.5-15.5 [facility] Comment on above: Performed By: #### C BC, PT, PTT, BMP ####[facility] [address] [place] [address] MCH 30.5 pG Normal 26.0-34.0 [facility] Comment on above: Performed By: #### C BC, PT, PTT, BMP ####[facility] [address] [place] [address] MCHC (RBC) [Mass/Vol] 32.0 g/dL Normal 30.5-36.0 [facility] Comment on above: Performed By: #### C BC, PT, PTT, BMP ####[facility] [address] [place] [address] MCV (RBC) [Entitic vol] 95.5 fL Normal 80.0-100.0 [facility] Comment on above: Performed By: #### C BC, PT, PTT, BMP ####[place] [address] Platelet mean volume (Bld) [Entitic vol] 8.4 fL Low 9.0-12.7 [facility] Comment on above: Performed By: #### C BC, PT, PTT, BMP ####[place] [address] Platelets (Bld) [#/Vol] 297 10*3/uL Normal 150-400 [facility] Comment on above: Performed By: #### C BC, PT, PTT, BMP ####[facility] [address] [place] [address] RBC (Bld) [#/Vol] 4.19 10*6/uL Normal 3.90-5.20 [facility] Comment on above: Performed By: #### C BC, PT, PTT, BMP ####[place] [address] WBC (Bld) [#/Vol] 5.23 10*3/uL Normal 3.70-11.00 [facility] Comment on above: Performed By: #### C BC, PT, PTT, BMP ####[facility] [address] [place], [place] [phone] HISTORY PHYSICALon HISTORY PHYSICAL HNO ID: [id number] Author: Gladis Bates APRN.DESIRAE Service: ? Author Type: Nurse Practitioner Type: HANDP Filed: 01/08/2021 12:02 PM Note Text: HISTORY AND PHYSICAL EXAMINATION SERVICE DATE: 01/08/2021 SERVICE TIME: 10:57 AM PRIMARY CARE PHYSICIAN: Ruddy Cooper MD REASON FOR VISIT: Judi Krause is a 75 year old female who is scheduled for PERCUTANEOUS TRANSCATHETER PERMANENT OCCLUSION OR EMBOLIZATION ANY METHOD CENTRAL NERVOUS SYSTEM at the request of Dr. Zafar Jones for consultation. My final recommendation will be communicated back to the requesting physician by way of shared medical record or letter. COVID VACCINATION STATUS Not vaccinated Subjective The patient has the following: ACTIVE PROBLEM LIST Cerebral Aneurysm, Nonruptured Reactive Depression Generalized Anxiety Disorder Essential Hypertension Osteoporosis, Unspecified Diffuse Cystic Mastopathy Ocular migraine Mixed Hyperlipidemia Vitamin D Deficiency Abnormal Pap Smear of Vagina Edema of Both Legs Venous Insufficiency (Chronic) (Peripheral) Gerd (Gastroesophageal Reflux Disease) Dupuytren's Contracture Infiltrating Ductal Carcinoma of Left Breast (Hcc) Prediabetes Primary Osteoarthritis of Right Knee Status Post Right Knee Replacement Type 2 Diabetes Mellitus Without Complication, Without Long-Term Current Use of Insulin (Hcc) CHIEF COMPLAINT: Pre-Op Exam HPI: 75 year old female presents with cerebral aneurysm. Patient had aneurysm repair in 2004 and 2005. She had follow up imaging recently for surgical clearance which noted recurrence and enlargement of aneurysm. She had cerebral angiogram done at the beginning of November and then further intervention was recommended. She denies current headaches, lightheaded or dizziness. She does have some double vision if looking over to the side but this has been chronic for quite some time. REVIEW OF SYSTEMS: General: No weight loss, malaise or fevers. Neurological: SEE HPI Positive for: impaired sensorium (Present in hands and feet). Negative for: headaches, multiple sclerosis, Parkinson's disease, seizures, TIA and strokes. Respiratory: No history of current cough or dyspnea, or pneumonia in the past 6 weeks. No history of respiratory/pulmonary symptoms or problems. Cardiovascular: Positive for: hyperlipidemia (No current Rx) and hypertension (on Rx) Negative for: arrhythmia, atrial fibrillation, CAD, chest pain, CHF, DVT/PE, recent ME and murmur/valvular heart disease. GI: Positive for: GERD (Occasional heartburn, Prilosec PRN) Negative for: abdominal pain, difficulty swallowing, diverticulitis, GI bleed <30 days, hepatitis, irritable bowel syndrome, inflammatory bowel disease, liver disease, nausea and vomiting. : Positive for: nocturia >1 time per night. Negative for: dysuria, frequent urination, hematuria, nephrolithiasis, renal failure, urgency and urinary tract infection. STATUE CARVER: Negative for abnormal vaginal bleeding, abnormal vaginal discharge. Endocrine: Positive for: diabetes mellitus (No current Rx). Negative for: hyperthyroidism and hypothyroidism. Hematology: Positive for: chronic anti-coagulation/plate let meds (ASA, Plavix). Negative for: anemia, bruises/bleeds easily, factor V Leiden, thrombocytopenia and von Willebrand disease. Oncology: (+) H/O L breast cancer s/p lumpectomy and radiation (01/2020). Taking Arimidex. Psych: No history of psychiatric symptoms or problems. Musculoskeletal: Positive for: joint pain (Knee pain) and swelling (Ankles). Skin: Negative for lesions, rash and itching. PAST MEDICAL HISTORY Diagnosis Date - Anatomical narrow angle glaucoma - Aneurysm (HCC) 4 ruptured - BCC (basal cell carcinoma), trunk chest; Dr. To Zuleta (derm) treated 07/25/16 biopsy followed by cryo - Benign neoplasm of colon - Degeneration of intervertebral disc, site unspecified - Depressive disorder, not elsewhere classified Depression (non-psychotic) - Disorder of bone and cartilage, unspecified - Dysfunction of eustachian tube - Essential hypertension, benign - Generalized anxiety disorder Anxiety, Generalized - Internal hemorrhoids without mention of complication - Lumbago - Nonspecific abnormal finding in stool contents - Ocular migraine - Osteoporosis, unspecified - Type 2 diabetes mellitus without complication, without long-term current use of insulin (HCC) - Unspecified constipation - Unspecified essential hypertension - Varicose veins of other sites PAST SURGICAL HISTORY Procedure Laterality Date - ABDOMINAL SURGERY HX 2004 tummy tuck - ANKLE SURGERY HX Right 04/2019 Tendon repair - BREAST LUMPECTOMY HX Left 01/2020 - BREAST LUMPECTOMY HX Bilateral 01/2020 re-excision of margins - COIL, EMBOLIZATION 2004 aneurysm - COLONOSCOPY W/BX 08/12/2007 - HAMMERTOE REVISION, ONE TOE Left 2016 - HYSTERECTOMY HX 12/03/1988 - IRIDOTOMY/IRIDECTOMY BY UZAIR (more content not included)... Normal [facility] Protimeon 01-08-2021 PT INR 1.0 Normal 0.9-1.3 [facility] Comment on above: Result Comment: Analilia min K Antagonist (VKA) Therapeutic Range: INR 2 to 3 (Target INR of 2.5) Note: For patients treated with VKA drugs, such as warfarin, the [place] [employer] 2012 Guideline recommends a therapeutic INR range of 2 to 3 (target INR of 2.5). This recommendation includes high-risk patients with antiphospholipid syndrome with previous arterial or venous thromboembolism, current-generation mechanical or bioprosthetic aortic heart valve replacement. Note: Patients with mechanical aortic valve replacement and additional risk factors for thromboembolic events (atrial fibrillation, previous thromboembolism, LV dysfunction, hypercoagulable conditions) or an older generation mechanical AVR (i.e., ball in-Cage) or any mechanical MVR should have a INR therapeutic range of 2.5 to 3.5 (target INR of 3). Ofelia GH, et al. Chest 2012, 141:7S-47S Hawk RA, et al. [facility] 2017, 70: 252-289 Performed By: #### C BC, PT, PTT, BMP ####[facility] [address] PT Sec 10.2 sec Normal 9.7-13.0 [facility] Comment on above: Performed By: #### C BC, PT, PTT, BMP ####[facility] [address] [place] [phone] XR Chest PA and Lateralon IMPRESSION: No acute radiographic abnormality. Director Of Strategic Marketing: PSCElizabeth Transcribe Date/Time: Dec 25 2020 1:18P Dictated by : ANTHONY NYE MD This examination was interpreted and the report reviewed and electronically signed by: ANTHONY NYE MD on Dec 25 2020 1:19PM [facility] DIVISION OF RADIOLOGY * * *Final Report* * * DATE OF EXAM: Dec 25 2020 1:14PM WOX 5291 - XR CHEST 2V FRONTAL/LAT / PROCEDURE REASON: Cough * * * * Physician Interpretation * * * * EXAMINATION: CHEST RADIOGRAPH (2 VIEW FRONTAL & LATERAL) CLINICAL HISTORY: Cough MQ: XC2_6 EXAM DATE/TIME: 12/25/2020 1:14 PM COMPARISON: No relevant prior studies available. RESULT: Lines, tubes, and devices: None. Lungs and pleura: No consolidation. No lung mass. No pleural effusion. No pneumothorax. Cardiomediastinal silhouette: Normal cardiomediastinal silhouette. Bones and soft tissues: Unremarkable. DIVISION OF RADIOLOGY Provider, Joel Hermosillo [facility] - 12/25/2020 * * *Final Report* * * DATE OF EXAM: Dec 25 2020 1:14PM WOX 5291 - XR CHEST 2V FRONTAL/LAT / PROCEDURE REASON: Cough * * * * Physician Interpretation * * * * EXAMINATION: CHEST RADIOGRAPH (2 VIEW FRONTAL & LATERAL) CLINICAL HISTORY: Cough MQ: XC2_6 EXAM DATE/TIME: 12/25/2020 1:14 PM COMPARISON: No relevant prior studies available. RESULT: Lines, tubes, and devices: None. Lungs and pleura: No consolidation. No lung mass. No pleural effusion. No pneumothorax. Cardiomediastinal silhouette: Normal cardiomediastinal silhouette. Bones and soft tissues: Unremarkable. IMPRESSION IMPRESSION: No acute radiographic abnormality. Director Of Strategic Marketing: PSCB Transcribe Date/Time: Dec 25 2020 1:18P Dictated by : ANTHONY NYE MD This examination was interpreted and the report reviewed and electronically signed by: ANTHONY NYE MD on Dec 25 2020 1:19PM EST [facility] Radiology Study observation (narrative) [facility]ine b[facility] XR Chest PA and LateralOrder ed By: [facility]cf Provider on 12-25-2020 [facility] Tahir 12-14-2020 CNPN Telephone (AGHOSP) JUDI KRAUSE ([id number]) 1945 F NFR Date Time Provider Department 12/14/20 CHERRY, DIANNE AGHOSP During your visit today, we recorded the following information about you: Apurva Heredia 12/14/2020 11:59 AM Signed Spoke to Judi on 12/14 everything is good she is just waiting on further instructions from DR cherry -AW Allergies As of Date: 12/14/2020 Noted Allergy Reaction CODEINE 06/06/2004 8 - GI Upset MORPHINE 06/06/2004 8 - GI Upset PROZAC (FLUOXETINE) 12/26/2004 5 - Intolerance Comments: nervousness Date Reviewed: 12/06/2020 Reviewed by: Marylu Cordero RN - Fully Assessed Reason for Visit: Candle Wicker - Other [3602] Prescriptions as of 12/14/2020 - biotin 1 mg cap 1,000 mcg. - Vitamin E, dl, acetate, 1,000 unit capsule Take by mouth. - TURMERIC ORAL Take by mouth. - FLAXSEED OIL-OMEGA 3,6,9 ORAL Take by mouth. - folic acid 400 mcg tablet Take 400 mcg by mouth once daily. - aspirin, enteric coated (ASPIRIN, ENTERIC COATED) 81 mg EC tablet Take 81 mg by mouth once daily. - anastrozole (ARIMIDEX) 1 mg tablet Take 1 tablet by mouth once daily. - atenolol (TENORMIN) 25 mg tablet Take 1 tablet by mouth twice daily. - meclizine (ANTIVERT) 25 mg tab Take 1 tablet by mouth every 6 hours as needed (dizziness). - ALPRAZolam (XANAX) 0.5 mg tablet Take 1 tablet by mouth twice daily as needed. - Niacin 250 mg tablet Take 250 mg by mouth daily with breakfast. - GLUC/CHND/OM3/DHA/EPA/ FISH/STR (GLUCOSAMINE CHONDROITIN PLUS ORAL) Take 1 capsule by mouth once daily. - ascorbic acid, vitamin C, (VITAMIN C) 500 mg tablet Take 500 mg by mouth once daily. - Cholecalciferol, Vitamin D3, 5,000 unit cap Take 1 capsule by mouth once daily. - MEDICATION, NON-DATABASE relive nutritional products Meds Comments as of 12/14/2016: pt only took one dose of gabapentin and felt it was too strong, felt unsteady on her feet. Elliot Banks RN December 14, 2016 1:12 PM Problem List As Of Date 12/14/2020 Noted Resolved NONRUPTURED CEREBRAL ANEURYSM [I67.1] 06/14/2004 Varicose veins of other sites [456] 10/21/2014 Reactive depression [F32.9] GENERALIZED ANXIETY DIS [F41.1] Lumbago [M54.5] 10/21/2014 Degeneration of intervertebral disc, site unspe* 10/21/2014 Essential hypertension [I10] Dysfunction of eustachian tube [H69.80] 10/21/2014 OSTEOPOROSIS NOS [M81.0] DIFFUS CYSTIC MASTOPATHY [N60.19] 12/27/2004 Ocular migraine [346.8] Mixed hyperlipidemia [E78.2] 05/05/2007 Benign neoplasm of colon [D12.6] 08/12/2007 10/21/2014 Unspecified constipation [K59.00] 08/12/2007 10/21/2014 Nonspecific abnormal finding in stool contents *08/12/2007 10/21/2014 Internal hemorrhoids without mention of complic*08/12/2007 10/21/2014 Degenerative skin disorder [L98.8] 05/13/2008 10/21/2014 DERMATOSES NOS///DYSCHROMIA OTHER [L81.9] 05/13/2008 10/21/2014 Other specified dermatoses [L98.8] 05/13/2008 10/21/2014 Neoplasm of uncertain behavior of skin [D48.5] 05/13/2008 10/21/2014 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*05/13/2008 10/21/2014 Other seborrheic keratosis [L82.1] 05/13/2008 10/21/2014 ANGIOMA///NEVUS, NON-NEOPLASTIC [I78.1] 05/13/2008 10/21/2014 NEVUS////BENIGN MAAME SKIN TRUNK [D23.5] 05/13/2008 10/21/2014 Rash and other nonspecific skin eruption [R21] 06/22/2008 10/21/2014 Unspecified disorder of skin and subcutaneous t*06/22/2008 10/21/2014 Localized superficial swelling, mass, or lump [*06/22/2008 10/21/2014 Open wound(s) (multiple) of unspecified site(s)*07/04/2008 10/21/2014 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] 08/14/2009 10/21/2014 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] 08/14/2009 10/21/2014 Actinic Damage///Sun-Damaged Skin [L57.8] 08/14/2009 10/21/2014 Solar lentigo [L81.4] 08/14/2009 10/21/2014 Actinic skin damage [L57.8] 08/27/2013 10/21/2014 Scar condition and fibrosis of skin [L90.5] 08/27/2013 10/21/2014 Toe fracture, right [S92.911A] 11/04/2013 10/21/2014 Vitamin D deficiency [E55.9] 09/02/2014 Abnormal Pap smear of vagina [R87.629] 10/21/2014 Edema of both legs [R60.0] 10/10/2015 Venous insufficiency (chronic) (peripheral) [I8*10/10/2015 GERD (gastroesophageal reflux disease) [K21.9] 12/31/2018 Dupuytren's contracture [M72.0] 12/31/2018 Infiltrating ductal carcinoma of left breast (H*01/28/2020 Prediabetes [R73.03] 07/31/2020 Primary osteoarthritis of right knee [M17.11] 07/31/2020 Status post right knee replacement [Z96.651] 09/04/2020 Encounter Status:Closed by APURVA HEREDIA on 12/14/20 [facility] BRIEF OP NOTon 12-06-2020 BRIEF OP NOT HNO ID: [id number] Author: Dianne Cherry MD Service: Neurosurgery Author Type: Physician Type: Brief Op Note Filed: 12/06/2020 12:54 PM Note Text: BRIEF OP/PROCEDURE NOTE NEURO INTERVENTIONAL PROCEDURE DATE: December 06, 2020 LOG ID: [id number] Surgery/Procedure Date: 12/06/2020 Incision/Procedure Start Time: 11:20 AM Incision Close/Procedure End Time: 12:22 PM Anesthesia: Procedural Sedation PRIMARY PROCEDURALIST: Dianne Cherry M.D. BASTING MARKER(S): Anant Horton MD PROCEDURE: Diagnostic CervicoCerebral Angiography Indications: follow up aneurysms Access Site: right femoral artery, [place] PRE-PROCEDURE DIAGNOSIS: cerebral aneurysms POST-PROCEDURE DIAGNOSIS: cerebral aneurysms FINDINGS: Right ICA aneurysm measuring 3.1mmx2.5x2.4mm with a 2.7mm neck between the likely origin of the PCOM and the superior hypophyseal artery. Right ICA posterior wall small outpouching in the cavenous/opthalmic segment measuring 1.78mmx2.1mm best seen on the rotational reconstruction which could be associated with the superior ophthalmic artery. 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 Recurrence of left SCA aneurysm measurin.6mmx4.1mm Small residual ACOM aneurysm 1.7mm neck previously clipped. No recurrence of left anterior temporal aneurysm previously clipped. Preliminary report. Formal report to follow. ESTIMATED BLOOD LOSS: None COMPLICATIONS: None RADIATION DOSE: Exceeded 5 Gy - No SPECIMENS: Not Applicable SIGNATURE: Dianne Cherry MD PATIENT NAME: Judi Krause DATE: December 06, 2020 TIME: 12:35 PM [id number] Normal [facility] NIL CAROTID CEREBRAL UNILATE [facility] 12-06-2020 NIL CAROTID CEREBRAL UNILATERAL * * *Final Report* * * DATE OF EXAM: Dec 06 2020 3:10PM A6A 9657 - NIL CAROTID CEREBRAL UNILATERAL - LEFT / PROCEDURE REASON: DCA * * * * Physician Interpretation * * * * Diagnostic Cerebral Angiogram Report CLINICAL HISTORY: This patient is a 75 years -old Female who presents for follow up of her left SCA aneurysm and additional intracranial aneurysms. A diagnostic cerebral angiogram was requested to evaluate the cerebral vasculature. PROCEDURE: Diagnostic cerebral angiogram. TIME OUT TIME: 11:20AM PROCEDURE START TIME: 11:20AM PROCEDURE END TIME: 12:22P{M ATTENDING: Dianne Cherry MD, BASTING MARKER (FELLOW): Anant Horton MD The procedure was performed by the the warehouse assistant, and the attending personally supervised the entire procedure. The attending performed the following procedural activities: Diagnostic cerebral angiogram. ANGIOGRAPHY MATERIALS: Diagnostic catheter: 5 Erit[place]an Vert Catheter Guidewire: 0.035 inch angled tapered Glidewire. Fluoroscopic Radiation Summary: Plane A, Air Kerma: 2521.0 mGy Plane B, Air Kerma: 436.0 mGy Dose Area Product (DAP): Fluoro time: 27:48 min:sec arterial: 211 ml of OMNIPAQUE 300 ANESTHESIA: Conscious sedation with 50 mcg fentanyl and 1 mg Versed were administered by IV with continuous monitoring by a dedicated nurse. Pulsed oximetry, cardiopulmonary monitoring and electrocardiography was performed throughout the procedure. My intra-service time was 60 minutes. TECHNIQUE: After dennis discussion of the risks and benefits of diagnostic cerebral angiography, informed consent was obtained. The patient was brought to the angiography suite and placed in supine position. After hemodynamic monitoring was established, conscious sedation was administered by our nursing staff. The right groin was prepped and draped in the usual standard fashion, 1% lidocaine was used for local anesthetic. After fluoroscopic localization of the right femoral head, vascular access was obtained in the right common femoral artery utilizing a 4 E[place]rean micropuncture set. A 5 [place]ritrean sheath was inserted and connected to heparinized saline flush. A standard diagnostic catheter and wire were then fluoroscopically advanced for selective catheterization of the following vessels: Brachiocephalic vascular family: Right common carotid artery, cervical views. Right internal carotid artery, intracranial views. Standard AP, lateral and oblique views. Right external carotid artery, cranial views. Right subclavian artery, intracranial views. Standard AP, lateral views. Left carotid vascular family: Left common carotid artery, cervical views. Left internal carotid artery, intracranial views. Standard AP, lateral and oblique views. Left external carotid artery, cranial views. Left subclavian vascular family: Left vertebral artery, intracranial views. Standard AP, lateral and Angel's views. Right femoral artery Angiographic imaging was performed at each selected vessel with views as described above.3D rotational angiography was obtained with the catheter placed in the [left vertebral artery, right ICA and left ICA]. Images were reconstructed on a separate work station. After no further views and images were determined to be necessary, the procedure was terminated. All catheters and wires were removed from the patient. Hemostasis at the right groin was obtained by [employer]. The patient was transferred to recovery in stable condition without immediate complication. FINDINGS: RIGHT COMMON CAROTID ARTERY INJECTION (cervical): DSA images of the right anterior cervical circulation demonstrate normal course and caliber of the distal common carotid artery. The bifurcation is at C3. There is no significant atherosclerosis at the bifurcation by NASCET criteria.The cervical ICA has normal course and caliber. The proximal ECA and its branches demonstrate a normal course and caliber. There is no evidence of dissection or dural AV fistula. RIGHT INTERNAL CAROTID ARTERY INJECTION (cranial): DSA images of the right anterior intracranial circulation demonstrate normal course and caliber of the petrous, cavernous segments of the internal carotid artery. 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 Additionally there is a posterior wall small outpouching in the cavernous/opthalmic segment measuring 1.78mmx2.1mm best seen on the rotational reconstruction which could be associated with the superior opthalmic artery. The ophthalmic artery origin, course and caliber are normal. There is no visualized posterior communicating artery. The anterior choroidal artery is normal. M1 and A1 segments are normal. MCA and JOSSELIN distributions are normal. There is no filling across the anterior communicating artery to the contralateral JOSSELIN. Capill (more content not included)... 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 A diagnostic cerebral angiogram was requested to evaluate the cerebral vasculature. PROCEDURE: Diagnostic cerebral angiogram. TIME OUT TIME: 11:20AM PROCEDURE START TIME: 11:20AM PROCEDURE END TIME: 12:22P{M ATTENDING: Dianne Cherry MD, BASTING MARKER (FELLOW): Anant Horton MD The procedure was performed by the the warehouse assistant, and the attending personally supervised the entire procedure. The attending performed the following procedural activities: Diagnostic cerebral angiogram. ANGIOGRAPHY MATERIALS: Diagnostic catheter: 5 E[place]an Vert Catheter Guidewire: 0.035 inch angled tapered Glidewire. Fluoroscopic Radiation Summary: Plane A, Air Kerma: 2521.0 mGy Plane B, Air Kerma: 436.0 mGy Dose Area Product (DAP): Fluoro time: 27:48 min:sec arterial: 211 ml of OMNIPAQUE 300 ANESTHESIA: Conscious sedation with 50 mcg fentanyl and 1 mg Versed were administered by IV with continuous monitoring by a dedicated nurse. Pulsed oximetry, cardiopulmonary monitoring and electrocardiography was performed throughout the procedure. My intra-service time was 60 minutes. TECHNIQUE: After dennis discussion of the risks and benefits of diagnostic cerebral angiography, informed consent was obtained. The patient was brought to the angiography suite and placed in supine position. After hemodynamic monitoring was established, conscious sedation was administered by our nursing staff. The right groin was prepped and draped in the usual standard fashion, 1% lidocaine was used for local anesthetic. After fluoroscopic localization of the right femoral head, vascular access was obtained in the right common femoral artery utilizing a 4 [place]an micropuncture set. A 5 [place]rean sheath was inserted and connected to heparinized saline flush. A standard diagnostic catheter and wire were then fluoroscopically advanced for selective catheterization of the following vessels: Brachiocephalic vascular family: Right common carotid artery, cervical views. Right internal carotid artery, intracranial views. Standard AP, lateral and oblique views. Right external carotid artery, cranial views. Right subclavian artery, intracranial views. Standard AP, lateral views. Left carotid vascular family: Left common carotid artery, cervical views. Left internal carotid artery, intracranial views. Standard AP, lateral and oblique views. Left external carotid artery, cranial views. Left subclavian vascular family: Left vertebral artery, intracranial views. Standard AP, lateral and Angel's views. Right femoral artery Angiographic imaging was performed at each selected vessel with views as described above.3D rotational angiography was obtained with the catheter placed in the [left vertebral artery, right ICA and left ICA]. Images were reconstructed on a separate work station. After no further views and images were determined to be necessary, the procedure was terminated. All catheters and wires were removed from the patient. Hemostasis at the right groin was obtained by [employer]. The patient was transferred to recovery in stable condition without immediate complication. FINDINGS: RIGHT COMMON CAROTID ARTERY INJECTION (cervical): DSA images of the right anterior cervical circulation demonstrate normal course and caliber of the distal common carotid artery. The bifurcation is at C3. There is no significant atherosclerosis at the bifurcation by NASCET criteria.The cervical ICA has normal course and caliber. The proximal ECA and its branches demonstrate a normal course and caliber. There is no evidence of dissection or dural AV fistula. RIGHT INTERNAL CAROTID ARTERY INJECTION (cranial): DSA images of the right anterior intracranial circulation demonstrate normal course and caliber of the petrous, cavernous segments of the internal carotid artery. 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 Additionally there is a posterior wall small outpouching in the cavernous/opthalmic segment measuring 1.78mmx2.1mm best seen on the rotational reconstruction which could be associated with the superior opthalmic artery. The ophthalmic artery origin, course and caliber are normal. There is no visualized posterior communicating artery. The anterior choroidal artery is normal. M1 and A1 segments are normal. MCA and JOSSELIN distributions are normal. There is no filling across the anterior communicating artery to the contralateral JOSSELIN. Capillary and (more content not included)... 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 A diagnostic cerebral angiogram was requested to evaluate the cerebral vasculature. PROCEDURE: Diagnostic cerebral angiogram. TIME OUT TIME: 11:20AM PROCEDURE START TIME: 11:20AM PROCEDURE END TIME: 12:22P{M ATTENDING: Dianne Cherry MD, BASTING MARKER (FELLOW): Anant Horton MD The procedure was performed by the the warehouse assistant, and the attending personally supervised the entire procedure. The attending performed the following procedural activities: Diagnostic cerebral angiogram. ANGIOGRAPHY MATERIALS: Diagnostic catheter: 5 [place]an Vert Catheter Guidewire: 0.035 inch angled tapered Glidewire. Fluoroscopic Radiation Summary: Plane A, Air Kerma: 2521.0 mGy Plane B, Air Kerma: 436.0 mGy Dose Area Product (DAP): Fluoro time: 27:48 min:sec arterial: 211 ml of OMNIPAQUE 300 ANESTHESIA: Conscious sedation with 50 mcg fentanyl and 1 mg Versed were administered by IV with continuous monitoring by a dedicated nurse. Pulsed oximetry, cardiopulmonary monitoring and electrocardiography was performed throughout the procedure. My intra-service time was 60 minutes. TECHNIQUE: After dennis discussion of the risks and benefits of diagnostic cerebral angiography, informed consent was obtained. The patient was brought to the angiography suite and placed in supine position. After hemodynamic monitoring was established, conscious sedation was administered by our nursing staff. The right groin was prepped and draped in the usual standard fashion, 1% lidocaine was used for local anesthetic. After fluoroscopic localization of the right femoral head, vascular access was obtained in the right common femoral artery utilizing a 4 [place]rean micropuncture set. A 5 E[place]rean sheath was inserted and connected to heparinized saline flush. A standard diagnostic catheter and wire were then fluoroscopically advanced for selective catheterization of the following vessels: Brachiocephalic vascular family: Right common carotid artery, cervical views. Right internal carotid artery, intracranial views. Standard AP, lateral and oblique views. Right external carotid artery, cranial views. Right subclavian artery, intracranial views. Standard AP, lateral views. Left carotid vascular family: Left common carotid artery, cervical views. Left internal carotid artery, intracranial views. Standard AP, lateral and oblique views. Left external carotid artery, cranial views. Left subclavian vascular family: Left vertebral artery, intracranial views. Standard AP, lateral and Angel's views. Right femoral artery Angiographic imaging was performed at each selected vessel with views as described above.3D rotational angiography was obtained with the catheter placed in the [left vertebral artery, right ICA and left ICA]. Images were reconstructed on a separate work station. After no further views and images were determined to be necessary, the procedure was terminated. All catheters and wires were removed from the patient. Hemostasis at the right groin was obtained by [employer]. The patient was transferred to recovery in stable condition without immediate complication. FINDINGS: RIGHT COMMON CAROTID ARTERY INJECTION (cervical): DSA images of the right anterior cervical circulation demonstrate normal course and caliber of the distal common carotid artery. The bifurcation is at C3. There is no significant atherosclerosis at the bifurcation by NASCET criteria.The cervical ICA has normal course and caliber. The proximal ECA and its branches demonstrate a normal course and caliber. There is no evidence of dissection or dural AV fistula. RIGHT INTERNAL CAROTID ARTERY INJECTION (cranial): DSA images of the right anterior intracranial circulation demonstrate normal course and caliber of the petrous, cavernous segments of the internal carotid artery. 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 Additionally there is a posterior wall small outpouching in the cavernous/opthalmic segment measuring 1.78mmx2.1mm best seen on the rotational reconstruction which could be associated with the superior opthalmic artery. The ophthalmic artery origin, course and caliber are normal. There is no visualized posterior communicating artery. The anterior choroidal artery is normal. M1 and A1 segments are normal. MCA and JOSSELIN distributions are normal. There is no filling across the anterior communicating artery to the contralateral JOSSELIN. Capillary (more content not included)... 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 A diagnostic cerebral angiogram was requested to evaluate the cerebral vasculature. PROCEDURE: Diagnostic cerebral angiogram. TIME OUT TIME: 11:20AM PROCEDURE START TIME: 11:20AM PROCEDURE END TIME: 12:22P{M ATTENDING: Dianne Cherry MD, BASTING MARKER (FELLOW): Anant Horton MD The procedure was performed by the the warehouse assistant, and the attending personally supervised the entire procedure. The attending performed the following procedural activities: Diagnostic cerebral angiogram. ANGIOGRAPHY MATERIALS: Diagnostic catheter: 5 [place]an Vert Catheter Guidewire: 0.035 inch angled tapered Glidewire. Fluoroscopic Radiation Summary: Plane A, Air Kerma: 2521.0 mGy Plane B, Air Kerma: 436.0 mGy Dose Area Product (DAP): Fluoro time: 27:48 min:sec arterial: 211 ml of OMNIPAQUE 300 ANESTHESIA: Conscious sedation with 50 mcg fentanyl and 1 mg Versed were administered by IV with continuous monitoring by a dedicated nurse. Pulsed oximetry, cardiopulmonary monitoring and electrocardiography was performed throughout the procedure. My intra-service time was 60 minutes. TECHNIQUE: After dennis discussion of the risks and benefits of diagnostic cerebral angiography, informed consent was obtained. The patient was brought to the angiography suite and placed in supine position. After hemodynamic monitoring was established, conscious sedation was administered by our nursing staff. The right groin was prepped and draped in the usual standard fashion, 1% lidocaine was used for local anesthetic. After fluoroscopic localization of the right femoral head, vascular access was obtained in the right common femoral artery utilizing a 4 [place]rean micropuncture set. A 5 [place]ritrean sheath was inserted and connected to heparinized saline flush. A standard diagnostic catheter and wire were then fluoroscopically advanced for selective catheterization of the following vessels: Brachiocephalic vascular family: Right common carotid artery, cervical views. Right internal carotid artery, intracranial views. Standard AP, lateral and oblique views. Right external carotid artery, cranial views. Right subclavian artery, intracranial views. Standard AP, lateral views. Left carotid vascular family: Left common carotid artery, cervical views. Left internal carotid artery, intracranial views. Standard AP, lateral and oblique views. Left external carotid artery, cranial views. Left subclavian vascular family: Left vertebral artery, intracranial views. Standard AP, lateral and Angel's views. Right femoral artery Angiographic imaging was performed at each selected vessel with views as described above.3D rotational angiography was obtained with the catheter placed in the [left vertebral artery, right ICA and left ICA]. Images were reconstructed on a separate work station. After no further views and images were determined to be necessary, the procedure was terminated. All catheters and wires were removed from the patient. Hemostasis at the right groin was obtained by [employer]. The patient was transferred to recovery in stable condition without immediate complication. FINDINGS: RIGHT COMMON CAROTID ARTERY INJECTION (cervical): DSA images of the right anterior cervical circulation demonstrate normal course and caliber of the distal common carotid artery. The bifurcation is at C3. There is no significant atherosclerosis at the bifurcation by NASCET criteria.The cervical ICA has normal course and caliber. The proximal ECA and its branches demonstrate a normal course and caliber. There is no evidence of dissection or dural AV fistula. RIGHT INTERNAL CAROTID ARTERY INJECTION (cranial): DSA images of the right anterior intracranial circulation demonstrate normal course and caliber of the petrous, cavernous segments of the internal carotid artery. 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 Additionally there is a posterior wall small outpouching in the cavernous/opthalmic segment measuring 1.78mmx2.1mm best seen on the rotational reconstruction which could be associated with the superior opthalmic artery. The ophthalmic artery origin, course and caliber are normal. There is no visualized posterior communicating artery. The anterior choroidal artery is normal. M1 and A1 segments are normal. MCA and JOSSELIN distributions are normal. There is no filling across the anterior communicating artery to the contralateral JOSSELIN. Capillary (more content not included)... 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 A diagnostic cerebral angiogram was requested to evaluate the cerebral vasculature. PROCEDURE: Diagnostic cerebral angiogram. TIME OUT TIME: 11:20AM PROCEDURE START TIME: 11:20AM PROCEDURE END TIME: 12:22P{M ATTENDING: Dianne Cherry MD, BASTING MARKER (FELLOW): Anant Horton MD The procedure was performed by the the warehouse assistant, and the attending personally supervised the entire procedure. The attending performed the following procedural activities: Diagnostic cerebral angiogram. ANGIOGRAPHY MATERIALS: Diagnostic catheter: 5 [place]an Vert Catheter Guidewire: 0.035 inch angled tapered Glidewire. Fluoroscopic Radiation Summary: Plane A, Air Kerma: 2521.0 mGy Plane B, Air Kerma: 436.0 mGy Dose Area Product (DAP): Fluoro time: 27:48 min:sec arterial: 211 ml of OMNIPAQUE 300 ANESTHESIA: Conscious sedation with 50 mcg fentanyl and 1 mg Versed were administered by IV with continuous monitoring by a dedicated nurse. Pulsed oximetry, cardiopulmonary monitoring and electrocardiography was performed throughout the procedure. My intra-service time was 60 minutes. TECHNIQUE: After dennis discussion of the risks and benefits of diagnostic cerebral angiography, informed consent was obtained. The patient was brought to the angiography suite and placed in supine position. After hemodynamic monitoring was established, conscious sedation was administered by our nursing staff. The right groin was prepped and draped in the usual standard fashion, 1% lidocaine was used for local anesthetic. After fluoroscopic localization of the right femoral head, vascular access was obtained in the right common femoral artery utilizing a 4 E[place]rean micropuncture set. A 5 [place]ritrean sheath was inserted and connected to heparinized saline flush. A standard diagnostic catheter and wire were then fluoroscopically advanced for selective catheterization of the following vessels: Brachiocephalic vascular family: Right common carotid artery, cervical views. Right internal carotid artery, intracranial views. Standard AP, lateral and oblique views. Right external carotid artery, cranial views. Right subclavian artery, intracranial views. Standard AP, lateral views. Left carotid vascular family: Left common carotid artery, cervical views. Left internal carotid artery, intracranial views. Standard AP, lateral and oblique views. Left external carotid artery, cranial views. Left subclavian vascular family: Left vertebral artery, intracranial views. Standard AP, lateral and Angel's views. Right femoral artery Angiographic imaging was performed at each selected vessel with views as described above.3D rotational angiography was obtained with the catheter placed in the [left vertebral artery, right ICA and left ICA]. Images were reconstructed on a separate work station. After no further views and images were determined to be necessary, the procedure was terminated. All catheters and wires were removed from the patient. Hemostasis at the right groin was obtained by [employer]. The patient was transferred to recovery in stable condition without immediate complication. FINDINGS: RIGHT COMMON CAROTID ARTERY INJECTION (cervical): DSA images of the right anterior cervical circulation demonstrate normal course and caliber of the distal common carotid artery. The bifurcation is at C3. There is no significant atherosclerosis at the bifurcation by NASCET criteria.The cervical ICA has normal course and caliber. The proximal ECA and its branches demonstrate a normal course and caliber. There is no evidence of dissection or dural AV fistula. RIGHT INTERNAL CAROTID ARTERY INJECTION (cranial): DSA images of the right anterior intracranial circulation demonstrate normal course and caliber of the petrous, cavernous segments of the internal carotid artery. 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 Additionally there is a posterior wall small outpouching in the cavernous/opthalmic segment measuring 1.78mmx2.1mm best seen on the rotational reconstruction which could be associated with the superior opthalmic artery. The ophthalmic artery origin, course and caliber are normal. There is no visualized posterior communicating artery. The anterior choroidal artery is normal. M1 and A1 segments are normal. MCA and JOSSELIN distributions are normal. There is no filling across the anterior communicating artery to the contralateral JOSSELIN. Capillary and venous phases (more content not included)... Normal [facility] XR KNEE 3V AP/LAT/MERCHANT R Ton 09-05-2020 XR KNEE 3V AP/LAT/MERCHANT RT * * *Final Report* * * DATE OF EXAM: Sep 05 2020 12:08PM BRADLY [id number] - XR KNEE 3V AP/LAT/MERCHANT RT / PROCEDURE REASON: M25.561-Right knee pain, unspecified chronicity * * * * Physician Interpretation * * * * EXAMINATION: XR KNEE 3V AP/LAT/MERCHANT RT PATIENT/TECHNOLOGIST PROVIDED HISTORY: 1ST POST OP CLINICAL INFORMATION: 75 years old Female with Right knee pain, unspecified chronicity TECHNIQUE: XR KNEE 3V AP/LAT/MERCHANT RT Laterality: RIGHT Number of different views (projections): 3 COMPARISON: Radiographs 05/25/2020 RESULT: New RIGHT total knee arthroplasty with metal-backed patellar button in satisfactory alignment and position. No periprosthetic lucency, fracture or dislocation. Expected postoperative soft tissue swelling. IMPRESSION: New RIGHT total knee arthroplasty without complication. 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 TECHNIQUE: Intracranial 3D [id number]-[id number] MRA. 3D maximum intensity projection images were created, reviewed and archived . MQ: [id number] COMPARISON: 11/18/2018. 09/01/2017. 07/31/2016. RESULT: Posterior circulation: No appreciable change in size of 10 x 9 mm aneurysm in the region of left posterior cerebral artery/left superior cerebellar artery origin when compared to 11/18/2018. This is increased in size when compared to 09/01/2017. This aneurysm is partially obscured secondary to susceptibility signal from adjacent adjacent coil mass. Unchanged minimal outpouching measuring 2 mm at junction of the left P1 and P2 segment of posterior cerebral artery. The visualized distal vertebral artery, the basilar artery, and visualized portion of the posterior cerebral arteries are patent. Anterior circulation: The visualized segments of the internal carotid arteries are patent. Cavernous segment and the more distal intracranial segment of the left internal carotid artery obscured secondary to susceptibility signal. Large susceptibility signal in the region of the intracranial left internal carotid artery, and left posterior cerebral artery obscures evaluation of this vessels. The right middle cerebral artery is grossly patent. The visualized segments of the anterior cerebral arteries are patent. The A1 segments and proximal A2 segments of the anterior cerebral arteries are not well imaged due to susceptibility signal. IMPRESSION: 1. No appreciable change in size of 10 x 9 mm aneurysm in the region of left posterior cerebral artery/left superior cerebellar artery origin when compared to 11/18/2018. However, this is increased in size when compared to 09/01/2017. This aneurysm is partially obscured secondary to susceptibility signal from adjacent adjacent coil mass. Follow-up conventional angiogram may be obtained, as clinically warranted. 2. Unchanged minimal outpouching measuring 2 mm at junction of the left P1 and P2 segment of posterior cerebral artery. This may represent additional tiny aneurysm. 3. Evaluation of left internal carotid artery, left middle cerebral artery, and proximal anterior cerebral arteries is obscured secondary to susceptibility signal from coil mass. Recurrent or residual aneurysm in these regions are not evaluated. 4. No high-grade stenosis or focal occlusion is suspected within the visualized intracranial vasculature. Director Of Strategic Marketing: JOHNY Transcribe Date/Time: Aug 02 2020 8:44A Dictated by : ADAM ROSE MD This examination was interpreted and the report reviewed and electronically signed by: ADAM ROSE MD on Aug 02 2020 9:02AM EST [id number] Normal [facility] XR Ankle - left AP and Later al and obliqueon 05-06-2020 IMPRESSION: Soft tissue swelling. No evidence of acute fracture. Director Of Strategic Marketing: JOHNY Transcribe Date/Time: May 06 2020 11:28A Dictated by : REINA COLLIER MD This examination was interpreted and the report reviewed and electronically signed by: REINA COLLIER MD on May 06 2020 11:29AM [facility] DIVISION OF RADIOLOGY * * *Final Report* * * DATE OF EXAM: May 06 2020 11:24AM WOX [id number] - XR ANKLE 3V AP/LAT/OBL LT / PROCEDURE REASON: Acute left ankle pain * * * * Physician Interpretation * * * * HISTORY: Left ankle swelling after a rolling injury last night. Pt states she has bilateral leg numbness so doesn't feel specific pain.. Acute left ankle pain . TECHNIQUE: XR ANKLE 3V AP/LAT/OBL LT Laterality: LEFT Number of different views (projections): 3 COMPARISON: None RESULT: There is no evidence of fracture or dislocation. Ankle mortise alignment appears preserved. There is soft tissue swelling especially near the lateral malleolus and dorsally. There is partially visualized postsurgical change with screws and metatarsal and partially visualized in the second metatarsal where there is abundant callus suggesting remote healed fracture. - DIVISION OF RADIOLOGY Provider, [facility] - 05/06/2020 * * *Final Report* * * DATE OF EXAM: May 06 2020 11:24AM WOX [id number] - XR ANKLE 3V AP/LAT/OBL LT / PROCEDURE REASON: Acute left ankle pain * * * * Physician Interpretation * * * * HISTORY: Left ankle swelling after a rolling injury last night. Pt states she has bilateral leg numbness so doesn't feel specific pain.. Acute left ankle pain . TECHNIQUE: XR ANKLE 3V AP/LAT/OBL LT Laterality: LEFT Number of different views (projections): 3 COMPARISON: None RESULT: There is no evidence of fracture or dislocation. Ankle mortise alignment appears preserved. There is soft tissue swelling especially near the lateral malleolus and dorsally. There is partially visualized postsurgical change with screws and metatarsal and partially visualized in the second metatarsal where there is abundant callus suggesting remote healed fracture. - IMPRESSION IMPRESSION: Soft tissue swelling. No evidence of acute fracture. Director Of Strategic Marketing: PSCB Transcribe Date/Time: May 06 2020 11:28A Dictated by : REINA COLLIER MD This examination was interpreted and the report reviewed and electronically signed by: REINA COLLIER MD on May 06 2020 11:29AM EST [facility] Radiology Study observation (narrative) [facility] XR Ankle - left AP and Later al and obliqueOrdered By: [facility] Provider on 05-06-2020 [facility] Vital Signs Date Time Vital Sign Value Performing Clinician Facility 09-09-2024 00:58-0400 Body temperature 98 [degF] Dr. Ruddy Cooper MD Work Phone: 0(810)[phone] [place] [address] 09-09-2024 00:58-0400 Diastolic blood pressure 70 mm[Hg] Dr. Ruddy Cooper MD Work Phone: 0(281)[phone] [place] [address] 09-09-2024 00:58-0400 Heart rate 78 /min Dr. Ruddy Cooper MD Work Phone: 3(822)[phone] [place] [address] 09-09-2024 00:58-0400 Respiratory rate 20 /min Dr. Ruddy Cooper MD Work Phone: 5(946)[phone] [place] [address] 09-09-2024 00:58-0400 SaO2% (BldA) [Mass fraction] 99 % Dr. Ruddy Cooper MD Work Phone: 1(925)[phone] [place] [address] 09-09-2024 00:58-0400 Systolic blood pressure 117 mm[Hg] Dr. Ruddy Cooper MD Work Phone: 2(050)[phone] [place] [address] 09-08-2024 22:11-0400 Body height 160.[address] Ruddy Cooper MD Work Phone: 5(753)[phone] [place] [address] 09-08-2024 22:11-0400 Body mass index (BMI) [Ratio] 26.4 kg/m2 Dr. Ruddy Cooper MD Work Phone: 9(847)[phone] [place] [address] 09-08-2024 22:11-0400 Body weight 67.[address] Ruddy Cooper MD Work Phone: [facility] 09-07-2024 13:42-0400 Diastolic blood pressure 65 mm[Hg] Bradford Love FILM AND VIDEO EDITOR.DEFLECTOR OPERATOR Work Phone: [facility] 09-07-2024 13:42-0400 Heart rate 91 /min Bradford Love FILM AND VIDEO EDITOR.DEFLECTOR OPERATOR Work Phone: [facility] 09-07-2024 13:42-0400 Systolic blood pressure 99 mm[Hg] Bradford Love FILM AND VIDEO EDITOR.DEFLECTOR OPERATOR Work Phone: [facility] 09-07-2024 13:39-0400 Body mass index (BMI) [Ratio] 26.13 kg/m2 Bradford Love FILM AND VIDEO EDITOR.DEFLECTOR OPERATOR Work Phone: [facility] 09-07-2024 13:39-0400 Body weight 66.9 kg Bradford Love FILM AND VIDEO EDITOR.DEFLECTOR OPERATOR Work Phone: [facility] 09-07-2024 13:39-0400 Respiratory rate 16 /min Bradford Love FILM AND VIDEO EDITOR.DEFLECTOR OPERATOR Work Phone: [facility] 08-30-2024 09:30-0400 Body temperature 97.9 [degF] Dr. Ruddy Cooper MD Work Phone: [facility] 08-30-2024 09:30-0400 Diastolic blood pressure 82 mm[Hg] Dr. Ruddy Cooper MD Work Phone: [facility] 08-30-2024 09:30-0400 Heart rate 95 /min Dr. Ruddy Cooper MD Work Phone: [facility] 08-30-2024 09:30-0400 Respiratory rate 17 /min Dr. Ruddy Cooper MD Work Phone: [facility] 08-30-2024 09:30-0400 SaO2% (BldA) [Mass fraction] 97 % Dr. Ruddy Cooper MD Work Phone: [facility] 08-30-2024 09:30-0400 Systolic blood pressure 134 mm[Hg] Dr. Ruddy Cooper MD Work Phone: [facility] 08-30-2024 06:00-0400 Body mass index (BMI) [Ratio] 26.4 kg/m2 Dr. Ruddy Cooper MD Work Phone: [facility] 08-30-2024 06:00-0400 Body weight 67.[address] Ruddy Cooper MD Work Phone: [facility] 08-16-2024 12:31-0400 Body mass index (BMI) [Ratio] 26.75 kg/m2 Khris Salinas MD Work Phone: [facility] 08-16-2024 12:31-0400 Body weight 68.49 kg Khris Salinas MD Work Phone: [facility] 08-16-2024 12:31-0400 Diastolic blood pressure 72 mm[Hg] Khris Salinas MD Work Phone: [facility] 08-16-2024 12:31-0400 Heart rate 97 /min Khris Salinas MD Work Phone: [facility] 08-16-2024 12:31-0400 Systolic blood pressure 113 mm[Hg] Khris Salinas MD Work Phone: [facility] 08-09-2024 13:00-0400 Body mass index (BMI) [Ratio] 26.87 kg/m2 Zafar Clutter PA-C Work Phone: [facility] 08-09-2024 13:00-0400 Body temperature 98.49 [degF] Zafar Clutter PA-C Work Phone: [facility] 08-09-2024 13:00-0400 Body weight 68.8 kg Zafar Clutter PA-C Work Phone: [facility] 08-09-2024 13:00-0400 Diastolic blood pressure 80 mm[Hg] Zafar Clutter PA-C Work Phone: [facility] 08-09-2024 13:00-0400 Heart rate 72 /min Zafar Clutter PA-C Work Phone: [facility] 08-09-2024 13:00-0400 Respiratory rate 18 /min Zafar Clutter PA-C Work Phone: [facility] 08-09-2024 13:00-0400 Systolic blood pressure 126 mm[Hg] Zafar Clutter PA-C Work Phone: [facility] 06-21-2024 10:54-0500 Body mass index (BMI) [Ratio] 26.56 kg/m2 Bradford Love FILM AND VIDEO EDITOR.DEFLECTOR OPERATOR Work Phone: [facility] 06-21-2024 10:54-0500 Body weight 68 kg Bradford Love FILM AND VIDEO EDITOR.DEFLECTOR OPERATOR Work Phone: [facility] 06-21-2024 10:54-0500 Diastolic blood pressure 73 mm[Hg] Bradford Love FILM AND VIDEO EDITOR.DEFLECTOR OPERATOR Work Phone: [facility] 06-21-2024 10:54-0500 Heart rate 101 /min Bradford Love FILM AND VIDEO EDITOR.DEFLECTOR OPERATOR Work Phone: [facility] 06-21-2024 10:54-0500 Respiratory rate 16 /min Bradford Love FILM AND VIDEO EDITOR.DEFLECTOR OPERATOR Work Phone: [facility] 06-21-2024 10:54-0500 Systolic blood pressure 109 mm[Hg] Bradford Love FILM AND VIDEO EDITOR.DEFLECTOR OPERATOR Work Phone: [facility] 02-26-2024 12:39-0400 Body mass index (BMI) [Ratio] 26.4 kg/m2 Ruddy Cooper MD Work Phone: [facility] 02-26-2024 12:39-0400 Body weight 67.6 kg Ruddy Cooper MD Work Phone: [facility] 02-26-2024 12:39-0400 Diastolic blood pressure 78 mm[Hg] Ruddy Cooper MD Work Phone: [facility] 02-26-2024 12:39-0400 Heart rate 87 /min Ruddy Cooper MD Work Phone: [facility] 02-26-2024 12:39-0400 SaO2% (BldA) [Mass fraction] 97 % Ruddy Cooper MD Work Phone: [facility] 02-26-2024 12:39-0400 Systolic blood pressure 110 mm[Hg] Ruddy Cooper MD Work Phone: [facility] 02-25-2024 12:48-0400 Body mass index (BMI) [Ratio] 26.48 kg/m2 Raphael Perdomo FILM AND VIDEO EDITOR.MANUAL LATHE OPERATOR Work Phone: [facility] 02-25-2024 12:48-0400 Body temperature 97.3 [degF] Raphael Perdomo FILM AND VIDEO EDITOR.MANUAL LATHE OPERATOR Work Phone: [facility] 02-25-2024 12:48-0400 Body weight 67.8 kg Raphael Perdomo FILM AND VIDEO EDITOR.MANUAL LATHE OPERATOR Work Phone: [facility] 02-25-2024 12:48-0400 Diastolic blood pressure 80 mm[Hg] Raphael Riddleenter FILM AND VIDEO EDITOR.MANUAL LATHE OPERATOR Work Phone: [facility] 02-25-2024 12:48-0400 Heart rate 99 /min Raphael Perdomo FILM AND VIDEO EDITOR.MANUAL LATHE OPERATOR Work Phone: [facility] 02-25-2024 12:48-0400 SaO2% (BldA) [Mass fraction] 96 % Raphael Perdomo FILM AND VIDEO EDITOR.MANUAL LATHE OPERATOR Work Phone: [facility] 02-25-2024 12:48-0400 Systolic blood pressure 120 mm[Hg] Raphael Perdomo FILM AND VIDEO EDITOR.MANUAL LATHE OPERATOR Work Phone: [facility] 12-19-2023 11:05-0400 Body mass index (BMI) [Ratio] 26.44 kg/m2 Bradford Love FILM AND VIDEO EDITOR.DEFLECTOR OPERATOR Work Phone: [facility] 12-19-2023 11:05-0400 Body weight 67.7 kg Bradford Love FILM AND VIDEO EDITOR.DEFLECTOR OPERATOR Work Phone: [facility] 12-19-2023 11:05-0400 Diastolic blood pressure 71 mm[Hg] Bradford Love FILM AND VIDEO EDITOR.DEFLECTOR OPERATOR Work Phone: [facility] 12-19-2023 11:05-0400 Heart rate 87 /min Bradford Love FILM AND VIDEO EDITOR.DEFLECTOR OPERATOR Work Phone: [facility] 12-19-2023 11:05-0400 Respiratory rate 16 /min Bradford Love FILM AND VIDEO EDITOR.DEFLECTOR OPERATOR Work Phone: [facility] 12-19-2023 11:05-0400 Systolic blood pressure 118 mm[Hg] Bradford Love FILM AND VIDEO EDITOR.DEFLECTOR OPERATOR Work Phone: [facility] 12-10-2023 14:46-0400 Body mass index (BMI) [Ratio] 26.48 kg/m2 Ruddy Cooper MD Work Phone: [facility] 12-10-2023 14:46-0400 Body temperature 97.3 [degF] Ruddy Cooper MD Work Phone: [facility] 12-10-2023 14:46-0400 Body weight 67.8 kg Ruddy Cooper MD Work Phone: [facility] 12-10-2023 14:46-0400 Diastolic blood pressure 82 mm[Hg] Ruddy Cooper MD Work Phone: [facility] 12-10-2023 14:46-0400 Heart rate 72 /min Ruddy Cooper MD Work Phone: [facility] 12-10-2023 14:46-0400 Respiratory rate 16 /min Ruddy Cooper MD Work Phone: [facility] 12-10-2023 14:46-0400 SaO2% (BldA) [Mass fraction] 96 % Ruddy Cooper MD Work Phone: [facility] 12-10-2023 14:46-0400 Systolic blood pressure 126 mm[Hg] Ruddy Cooper MD Work Phone: [facility] 10-22-2023 12:00-0400 Heart rate 100 /min Charleen Rocha PT [facility] Comment on above: after walking 10-22-2023 12:00-0400 SaO2% (BldA) [Mass fraction] 99 % Charleen Rocha PT [facility] 10-20-2023 15:00-0400 SaO2% (BldA) [Mass fraction] 98 % Charleen Rocha PT [facility] 10-14-2023 12:00-0400 Body mass index (BMI) [Ratio] 26.56 kg/m2 Ruiz Serrato FILM AND VIDEO EDITOR.MANUAL LATHE OPERATOR Work Phone: [facility] 10-14-2023 12:00-0400 Body temperature 97.59 [degF] Ruiz Serrato FILM AND VIDEO EDITOR.MANUAL LATHE OPERATOR Work Phone: [facility] 10-14-2023 12:00-0400 Body weight 68 kg Ruiz Serrato FILM AND VIDEO EDITOR.MANUAL LATHE OPERATOR Work Phone: [facility] 10-14-2023 12:00-0400 Diastolic blood pressure 79 mm[Hg] Ruiz Serrato FILM AND VIDEO EDITOR.MANUAL LATHE OPERATOR Work Phone: [facility] 10-14-2023 12:00-0400 Heart rate 105 /min Ruiz Serrato FILM AND VIDEO EDITOR.MANUAL LATHE OPERATOR Work Phone: [facility] 10-14-2023 12:00-0400 Respiratory rate 18 /min Ruiz Serrato FILM AND VIDEO EDITOR.MANUAL LATHE OPERATOR Work Phone: [facility] 10-14-2023 12:00-0400 SaO2% (BldA) [Mass fraction] 100 % Ruiz Serrato FILM AND VIDEO EDITOR.MANUAL LATHE OPERATOR Work Phone: [facility] 10-14-2023 12:00-0400 Systolic blood pressure 117 mm[Hg] Ruiz Serrato FILM AND VIDEO EDITOR.MANUAL LATHE OPERATOR Work Phone: [facility] 09-10-2023 13:20-0400 Body mass index (BMI) [Ratio] 26.75 kg/m2 Raphael Perdomo FILM AND VIDEO EDITOR.MANUAL LATHE OPERATOR Work Phone: [facility] 09-10-2023 13:20-0400 Body temperature 97.7 [degF] Raphael Perdomo FILM AND VIDEO EDITOR.MANUAL LATHE OPERATOR Work Phone: [facility] 09-10-2023 13:20-0400 Body weight 68.49 kg Raphael Perdomo FILM AND VIDEO EDITOR.MANUAL LATHE OPERATOR Work Phone: [facility] 09-10-2023 13:20-0400 Diastolic blood pressure 87 mm[Hg] [place] Perdomo FILM AND VIDEO EDITOR.MANUAL LATHE OPERATOR Work Phone: [facility] 09-10-2023 13:20-0400 Heart rate 100 /min Raphael Perdomo FILM AND VIDEO EDITOR.MANUAL LATHE OPERATOR Work Phone: [facility] 09-10-2023 13:20-0400 SaO2% (BldA) [Mass fraction] 96 % Raphael Perdomo FILM AND VIDEO EDITOR.MANUAL LATHE OPERATOR Work Phone: [facility] 09-10-2023 13:20-0400 Systolic blood pressure 125 mm[Hg] [place] Perdomo FILM AND VIDEO EDITOR.MANUAL LATHE OPERATOR Work Phone: [facility] 09-08-2023 13:19-0400 Body mass index (BMI) [Ratio] 26.75 kg/m2 Bradford Love FILM AND VIDEO EDITOR.DEFLECTOR OPERATOR Work Phone: [facility] 09-08-2023 13:19-0400 Body weight 68.49 kg Bradford Love FILM AND VIDEO EDITOR.DEFLECTOR OPERATOR Work Phone: [facility] 09-08-2023 13:19-0400 Diastolic blood pressure 85 mm[Hg] Bradford Love FILM AND VIDEO EDITOR.DEFLECTOR OPERATOR Work Phone: [facility] 09-08-2023 13:19-0400 Heart rate 108 /min Bradford Love FILM AND VIDEO EDITOR.DEFLECTOR OPERATOR Work Phone: [facility] 09-08-2023 13:19-0400 Respiratory rate 16 /min Bradford Love FILM AND VIDEO EDITOR.DEFLECTOR OPERATOR Work Phone: [facility] 09-08-2023 13:19-0400 Systolic blood pressure 132 mm[Hg] Bradford Love FILM AND VIDEO EDITOR.DEFLECTOR OPERATOR Work Phone: [facility] 09-05-2023 16:38-0400 Body mass index (BMI) [Ratio] 26.75 kg/m2 Ruddy Cooper MD Work Phone: [facility] 09-05-2023 16:38-0400 Body temperature 97.9 [degF] Ruddy Cooper MD Work Phone: [facility] 09-05-2023 16:38-0400 Body weight 68.49 kg Ruddy Cooper MD Work Phone: [facility] 09-05-2023 16:38-0400 Diastolic blood pressure 72 mm[Hg] Ruddy Cooper MD Work Phone: [facility] 09-05-2023 16:38-0400 Heart rate 103 /min Ruddy Cooper MD Work Phone: [facility] 09-05-2023 16:38-0400 Respiratory rate 18 /min Rdudy Cooper MD Work Phone: [facility] 09-05-2023 16:38-0400 SaO2% (BldA) [Mass fraction] 99 % Ruddy Cooper MD Work Phone: [facility] 09-05-2023 16:38-0400 Systolic blood pressure 124 mm[Hg] Ruddy Cooper MD Work Phone: [facility] 05-26-2023 15:39-0500 Body weight 69.4 kg Ruddy Cooper MD Work Phone: [facility] 05-26-2023 15:39-0500 Diastolic blood pressure 80 mm[Hg] Ruddy Cooper MD Work Phone: [facility] 05-26-2023 15:39-0500 Heart rate 74 /min Ruddy Cooper MD Work Phone: [facility] 05-26-2023 15:39-0500 Respiratory rate 16 /min Ruddy Cooper MD Work Phone: [facility] 05-26-2023 15:39-0500 Systolic blood pressure 122 mm[Hg] Ruddy Cooper MD Work Phone: [facility] 04-03-2023 14:02-0500 Body temperature 97.39 [degF] Raphael Perdomo FILM AND VIDEO EDITOR.MANUAL LATHE OPERATOR Work Phone: [facility] 04-03-2023 14:02-0500 Body weight 68.95 kg Raphael Perdomo FILM AND VIDEO EDITOR.MANUAL LATHE OPERATOR Work Phone: [facility] 04-03-2023 14:02-0500 Diastolic blood pressure 76 mm[Hg] [place] Perdomo FILM AND VIDEO EDITOR.MANUAL LATHE OPERATOR Work Phone: [facility] 04-03-2023 14:02-0500 Heart rate 77 /min [place] Perdomo FILM AND VIDEO EDITOR.MANUAL LATHE OPERATOR Work Phone: [facility] 04-03-2023 14:02-0500 Systolic blood pressure 123 mm[Hg] [place] Perdomo FILM AND VIDEO EDITOR.MANUAL LATHE OPERATOR Work Phone: [facility] 12-24-2022 09:18-0400 Body height 160 cm Sheela VELA-C Work Phone: [facility] 12-24-2022 09:18-0400 Body weight 66.68 kg Sheela Celeste PA-C Work Phone: [facility] 10-18-2022 13:22-0400 Body weight 68.95 kg Bradford Love FILM AND VIDEO EDITOR.DEFLECTOR OPERATOR Work Phone: [facility] 10-18-2022 13:22-0400 Diastolic blood pressure 70 mm[Hg] Bradford Love FILM AND VIDEO EDITOR.DEFLECTOR OPERATOR Work Phone: [facility] 10-18-2022 13:22-0400 Heart rate 96 /min Bradford Love FILM AND VIDEO EDITOR.DEFLECTOR OPERATOR Work Phone: [facility] 10-18-2022 13:22-0400 Respiratory rate 16 /min Bradford Love FILM AND VIDEO EDITOR.DEFLECTOR OPERATOR Work Phone: [facility] 10-18-2022 13:22-0400 Systolic blood pressure 114 mm[Hg] Bradford Love FILM AND VIDEO EDITOR.DEFLECTOR OPERATOR Work Phone: [facility] 06-27-2022 11:17-0500 Body weight 66.22 kg Bradford Love FILM AND VIDEO EDITOR.DEFLECTOR OPERATOR Work Phone: [facility] 06-27-2022 11:17-0500 Diastolic blood pressure 70 mm[Hg] Bradford Love FILM AND VIDEO EDITOR.DEFLECTOR OPERATOR Work Phone: [facility] 06-27-2022 11:17-0500 Heart rate 97 /min Bradford Love FILM AND VIDEO EDITOR.DEFLECTOR OPERATOR Work Phone: [facility] 06-27-2022 11:17-0500 Respiratory rate 16 /min Bradford Love FILM AND VIDEO EDITOR.DEFLECTOR OPERATOR Work Phone: [facility] 06-27-2022 11:17-0500 SaO2% (BldA) [Mass fraction] 97 % Bradford Love FILM AND VIDEO EDITOR.DEFLECTOR OPERATOR Work Phone: [facility] 06-27-2022 11:17-0500 Systolic blood pressure 110 mm[Hg] Bradford Love FILM AND VIDEO EDITOR.DEFLECTOR OPERATOR Work Phone: [facility] 05-24-2022 12:38-0500 Body height 160.7 cm [place] Perdomo FILM AND VIDEO EDITOR.MANUAL LATHE OPERATOR Work Phone: [facility] 05-24-2022 12:38-0500 Body temperature 97 [degF] Raphael Perdomo FILM AND VIDEO EDITOR.MANUAL LATHE OPERATOR Work Phone: [facility] 05-24-2022 12:38-0500 Body weight 65.32 kg Raphael Perdomo FILM AND VIDEO EDITOR.MANUAL LATHE OPERATOR Work Phone: [facility] 05-24-2022 12:38-0500 Diastolic blood pressure 71 mm[Hg] Raphael Perdomo FILM AND VIDEO EDITOR.MANUAL LATHE OPERATOR Work Phone: [facility] 05-24-2022 12:38-0500 Heart rate 106 /min [place] Perdomo FILM AND VIDEO EDITOR.MANUAL LATHE OPERATOR Work Phone: [facility] 05-24-2022 12:38-0500 Systolic blood pressure 104 mm[Hg] [place] Perdomo FILM AND VIDEO EDITOR.MANUAL LATHE OPERATOR Work Phone: [facility] 04-18-2022 11:00-0500 Body temperature 97.11 [degF] Treatment Wstr Work Phone: [facility] 04-18-2022 11:00-0500 Diastolic blood pressure 69 mm[Hg] Treatment Wstr Work Phone: [facility] 04-18-2022 11:00-0500 Heart rate 100 /min Treatment Wstr Work Phone: [facility] 04-18-2022 11:00-0500 Systolic blood pressure 118 mm[Hg] Treatment Wstr Work Phone: [facility] 03-28-2022 13:50-0500 Body weight 63.5 kg Bradford Love FILM AND VIDEO EDITOR.DEFLECTOR OPERATOR Work Phone: [facility] 03-28-2022 13:50-0500 Diastolic blood pressure 68 mm[Hg] Bradford Love FILM AND VIDEO EDITOR.DEFLECTOR OPERATOR Work Phone: [facility] 03-28-2022 13:50-0500 Heart rate 106 /min Bradford Love FILM AND VIDEO EDITOR.DEFLECTOR OPERATOR Work Phone: [facility] 03-28-2022 13:50-0500 Respiratory rate 16 /min Bradford Love FILM AND VIDEO EDITOR.DEFLECTOR OPERATOR Work Phone: [facility] 03-28-2022 13:50-0500 SaO2% (BldA) [Mass fraction] 100 % Bradford Love FILM AND VIDEO EDITOR.DEFLECTOR OPERATOR Work Phone: [facility] 03-28-2022 13:50-0500 Systolic blood pressure 104 mm[Hg] Bradford Love FILM AND VIDEO EDITOR.DEFLECTOR OPERATOR Work Phone: [facility] 11-29-2021 09:35-0400 Body height 161.3 cm Sheela VELA-C Work Phone: [facility] 11-29-2021 09:35-0400 Body weight 63.5 kg Sheela Celeste PA-C Work Phone: [facility] 11-21-2021 13:25-0400 Body height 162 cm Raphael Perdomo FILM AND VIDEO EDITOR.MANUAL LATHE OPERATOR Work Phone: [facility] 11-21-2021 13:25-0400 Body temperature 97.81 [degF] Raphael Riddleenter FILM AND VIDEO EDITOR.MANUAL LATHE OPERATOR Work Phone: [facility] 11-21-2021 13:25-0400 Body weight 63.5 kg Raphael Perdomo FILM AND VIDEO EDITOR.MANUAL LATHE OPERATOR Work Phone: [facility] 11-21-2021 13:25-0400 Diastolic blood pressure 81 mm[Hg] Raphael Perdomo FILM AND VIDEO EDITOR.MANUAL LATHE OPERATOR Work Phone: [facility] 11-21-2021 13:25-0400 Heart rate 106 /min Raphael Perdomo FILM AND VIDEO EDITOR.MANUAL LATHE OPERATOR Work Phone: [facility] 11-21-2021 13:25-0400 SaO2% (BldA) [Mass fraction] 96 % Raphael Riddleenter FILM AND VIDEO EDITOR.MANUAL LATHE OPERATOR Work Phone: [facility] 11-21-2021 13:25-0400 Systolic blood pressure 121 mm[Hg] Raphael Riddleenter FILM AND VIDEO EDITOR.MANUAL LATHE OPERATOR Work Phone: [facility] 10-23-2021 11:00-0400 Body temperature 97 [degF] Treatment Wstr Work Phone: [facility] 10-23-2021 11:00-0400 Diastolic blood pressure 66 mm[Hg] Treatment Wstr Work Phone: [facility] 10-23-2021 11:00-0400 Heart rate 94 /min Treatment Wstr Work Phone: [facility] 10-23-2021 11:00-0400 Respiratory rate 16 /min Treatment Wstr Work Phone: [facility] 10-23-2021 11:00-0400 SaO2% (BldA) [Mass fraction] 99 % Treatment Wstr Work Phone: [facility] 10-23-2021 11:00-0400 Systolic blood pressure 116 mm[Hg] Treatment Wstr Work Phone: [facility] 10-17-2021 09:14-0400 Body weight 63.05 kg Ruddy Cooper MD Work Phone: [facility] 10-17-2021 09:14-0400 Diastolic blood pressure 64 mm[Hg] Ruddy Cooper MD Work Phone: [facility] 10-17-2021 09:14-0400 Heart rate 90 /min Ruddy Cooper MD Work Phone: [facility] 10-17-2021 09:14-0400 SaO2% (BldA) [Mass fraction] 100 % Ruddy Cooper MD Work Phone: [facility] 10-17-2021 09:14-0400 Systolic blood pressure 122 mm[Hg] Ruddy Cooper MD Work Phone: [facility] 10-08-2021 12:10-0400 Body temperature 97.3 [degF] [facility] FILM AND VIDEO EDITOR.MANUAL LATHE OPERATOR Work Phone: [facility] 10-08-2021 12:10-0400 Body weight 63.78 kg [facility] FILM AND VIDEO EDITOR.MANUAL LATHE OPERATOR Work Phone: [facility] 10-08-2021 12:10-0400 Diastolic blood pressure 70 mm[Hg] [facility] FILM AND VIDEO EDITOR.MANUAL LATHE OPERATOR Work Phone: [facility] 10-08-2021 12:10-0400 Heart rate 103 /min [facility] FILM AND VIDEO EDITOR.MANUAL LATHE OPERATOR Work Phone: [facility] 10-08-2021 12:10-0400 Respiratory rate 20 /min [facility] FILM AND VIDEO EDITOR.MANUAL LATHE OPERATOR Work Phone: [facility] 10-08-2021 12:10-0400 SaO2% (BldA) [Mass fraction] 99 % [facility] FILM AND VIDEO EDITOR.MANUAL LATHE OPERATOR Work Phone: [facility] 10-08-2021 12:10-0400 Systolic blood pressure 96 mm[Hg] [facility] FILM AND VIDEO EDITOR.MANUAL LATHE OPERATOR Work Phone: [facility] 08-31-2021 16:38-0400 Body temperature 97.7 [degF] [facility] Work Phone: 08-31-2021 16:38-0400 Diastolic blood pressure 81 mm[Hg] [facility] Work Phone: 08-31-2021 16:38-0400 Heart rate 83 /min [facility] Work Phone: 08-31-2021 16:38-0400 Respiratory rate 18 /min [facility] Work Phone: 08-31-2021 16:38-0400 SaO2% (BldA) [Mass fraction] 98 % [facility] Work Phone: 08-31-2021 16:38-0400 Systolic blood pressure 106 mm[Hg] [facility] Work Phone: 08-31-2021 13:17-0400 Body height 161.01 cm [facility] Work Phone: 08-31-2021 13:17-0400 Body mass index (BMI) [Ratio] 24.8 kg/m2 [facility] Work Phone: 08-31-2021 13:17-0400 Body weight 64.35 kg [facility] Work Phone: Encounters Encounter Date Encounter Type Care Provider Facility Start: 10-02-2024 End: 10-05-2024 ambulatory Bradford Love APRN.DEFLECTOR OPERATOR Work Phone: [facility] [place] Comment on above: Judi Wright [birth year] 3 visit Start: 09-22-2024 End: 09-22-2024 [facility] [place] Start: 09-22-2024 End: 09-22-2024 Patient encounter [facility] [place] Comment on above: Population Health Na vigation Outreach ([facility] ) Start: 09-14-2024 End: 09-14-2024 ambulatory [facility] Facility:[facility] Start: 09-08-2024 End: 09-09-2024 Emergency department patient visit Dr. Ruddy Cooper MD Work Phone: -Emergency Department Work Phone: Start: 09-08-2024 End: 09-08-2024 Telephone encounter Salome ESQUIVEL Navigation Start: 09-07-2024 End: 09-07-2024 Office outpatient visit 25 minutes Bradford Love SHAHID.DEFLECTOR OPERATOR Work Phone: [facility] [place] Comment on above: Frequent falls (Prim gilberto Dx); Failure to thrive in adult; Dementia with other behavioral disturbance, unspecified dementia severity, unspecified dementia type (HCC); Primary hypertension; Urinary tract infection without hematuria, site unspecified; Type 2 diabetes mellitus with diabetic neuropathy, without long-term current use of insulin (HCC); 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) Start: 09-07-2024 End: 09-07-2024 ambulatory BRADFORD LOVE Facility:[facility] Start: 09-05-2024 End: 09-07-2024 ambulatory Ruddy Cooper MD Work Phone: [facility] [place] Comment on above: Judi's current ment al state Start: 09-01-2024 End: 09-01-2024 Patient Outreach Lamar De Leon RN Work Phone: Plant Clerk Management Comment on above: Transition Of Care I nitial phone contact for Transitional Care Management Started Weekly phone contact (Recurring) for Transitional Care Management Start: 08-30-2024 Non-patient / Non-visit Dr. Jose rees [facility] Work Phone: Start: 08-29-2024 Non-patient / Non-visit Dr. Liu CAPPS [facility] Work Phone: Start: 08-28-2024 Non-patient / Non-visit Dr. Liu [facility] Work Phone: Start: 08-27-2024 Non-patient / Non-visit Dr. Liu Kemp [facility] Work Phone: Start: 08-26-2024 End: 08-26-2024 Telephone encounter Raphael Perdomo APRN.MANUAL LATHE OPERATOR Work Phone: Hematology/Oncology Comment on above: Patient Update Start: 08-26-2024 Non-patient / Non-visit Dr. Hatfield DO -[place] [facility] Work Phone: Start: 08-25-2024 ambulatory Ruddy Sue y:BMS Start: 08-25-2024 End: 08-30-2024 Evaluation and management of inpatient Dr. Jose Mariee DO -Medical Surgical 3 Work Phone: Start: 08-24-2024 End: 08-24-2024 ambulatory Khris Salinas MD Work Phone: Neurology Comment on above: Status of Judi's te st results Start: 08-19-2024 End: 08-24-2024 ambulatory Ruddy Cooper MD Work Phone: [facility] [place] Comment on above: Urine test Start: 08-17-2024 End: 08-18-2024 Telephone encounter Ruddy Cooper MD Work Phone: [facility] [place] Comment on above: Refill Request Start: 08-17-2024 End: 08-18-2024 ambulatory Khris Salinas MD Work Phone: Neurology Comment on above: Authorization Releas e Form Start: 08-16-2024 End: 08-16-2024 Patient encounter procedure Khris Salinas MD Work Phone: Neurology Comment on above: DM type 2 with diabe tic peripheral neuropathy (HCC) (Primary Dx); Disease related peripheral neuropathy; Cerebral aneurysm (HCC); Lesions of both ulnar nerves Start: 08-16-2024 End: 08-16-2024 ambulatory KHRIS SALINAS Facility:[facility] Start: 08-11-2024 End: 08-11-2024 ambulatory Ruddy Cooper MD Work Phone: [facility] [place] Comment on above: Preventative UTI Barb trum Dose Start: 08-09-2024 End: 08-09-2024 ambulatory Raphael Perdomo FILM AND VIDEO EDITOR.MANUAL LATHE OPERATOR Work Phone: Hematology/Oncology Comment on above: Judi Krause appt. M ay 1 Start: 08-09-2024 End: 08-09-2024 Office outpatient new 30 minutes Zafar Brown PA-C [facility] Comment on above: Urinary frequency (P rimary Dx); Acute UTI Start: 08-08-2024 End: 08-09-2024 ambulatory Raphael Perdomo FILM AND VIDEO EDITOR.MANUAL LATHE OPERATOR Work Phone: Hematology/Oncology Comment on above: Judi Krause 08/26/24 appt. Start: 08-03-2024 End: 08-03-2024 Telephone encounter Salome Perez MSW Navigation Start: 07-21-2024 End: 07-21-2024 Telephone encounter Zafar Jones MD Work Phone: [facility] Comment on above: Patient Question Start: 06-29-2024 End: 08-29-2024 Follow-up encounter Bradford Love APRN.DEFLECTOR OPERATOR Work Phone: [facility] [place] Start: 06-25-2024 End: 06-28-2024 Telephone encounter Salome Perez CLAY PLANT TREATER Navigation Start: 06-22-2024 End: 06-22-2024 ambulatory RUDDY COOPER Facility:[facility] Start: 06-22-2024 End: 06-22-2024 Nursing evaluation of patient and report Norris Young RN Work Phone: Endocrinology Comment on above: Type 2 diabetes lona itus with diabetic neuropathy, without long-term current use of insulin (HCC) (Primary Dx) Start: 06-21-2024 End: 06-23-2024 Telephone encounter Bradford Love APRN.DEFLECTOR OPERATOR Work Phone: Diabetic Education [facility] Comment on above: Orders Future Appointment ( Reestablish Care JUAN Jones) Start: 06-21-2024 End: 06-22-2024 ambulatory Bradford Love APRN.DEFLECTOR OPERATOR Work Phone: [facility] [place] Comment on above: Question about my mo ther Judi Toya Start: 06-21-2024 End: 06-21-2024 Office outpatient visit 25 minutes Bradford Love APRN.DEFLECTOR OPERATOR Work Phone: [facility] [place] Comment on above: Primary hypertension (Primary Dx); Type 2 diabetes mellitus with diabetic neuropathy, without long-term current use of insulin (HCC); Arthritis of hand; Vitamin D deficiency; Encounter for screening mammogram for breast cancer Start: 06-18-2024 End: 06-18-2024 ambulatory BRADFORD LOVE Facility:[facility] Start: 03-15-2024 End: 03-15-2024 [facility] Start: 03-02-2024 End: 03-02-2024 ambulatory Monae Ch RN Work Phone: Plant Clerk Management Start: 03-02-2024 End: 03-02-2024 Patient encounter procedure Monae Ch RN Work Phone: Plant Clerk Management Comment on above: JENNIFER MEMBRENO RN ( ED Utilization Review per request of payor/) Start: 02-27-2024 End: 02-27-2024 Emergency department patient visit Ruddy Maria Alejandra Cooper Facility:[facility] Start: 02-26-2024 End: 02-26-2024 ambulatory RUDDY Maria Alejandra [facility] Facility:[facility] Start: 02-26-2024 End: 02-26-2024 [facility] Work [facility]: [facility] Comment on above: Arthritis of hand [M 19.049] Start: 02-26-2024 End: 02-26-2024 ambulatory [facility] Facility:[facility] Start: 02-26-2024 End: 02-26-2024 Office outpatient visit 25 minutes Ruddy Cooper MD Work Phone: [facility] [place] Comment on above: Arthritis of hand (P rimary Dx); Type 2 diabetes mellitus with diabetic neuropathy, without long-term current use of insulin (HCC); Dupuytren's contracture; Vitamin D deficiency; Encounter for long-term current use of medication Start: 02-25-2024 End: 02-25-2024 ambulatory Raphael Perdomo APRN.CNP Work Phone: Hematology/Oncology Comment on above: Invasive ductal carc inoma of breast, left (HCC) (Primary Dx); Ductal carcinoma in situ (DCIS) of right breast Start: 02-25-2024 End: 02-25-2024 Patient encounter procedure Raphael Perdomo APRN.CNP Work Phone: Hematology/Oncology Start: 02-11-2024 End: 02-17-2024 Telephone encounter Ruddy Cooper MD Work Phone: [facility] [place] Comment on above: Patient Question Start: 01-27-2024 End: 01-27-2024 ambulatory Charleen O'Casper PT [facility] Comment on above: Complaints of leg we akness (Primary Dx); Gait difficulty Start: 01-20-2024 End: 01-20-2024 ambulatory Charleen O'Casper PT [facility] Comment on above: Complaints of leg we akness (Primary Dx); Gait difficulty Start: 01-13-2024 End: 01-13-2024 ambulatory Charleen O'Casper PT [facility] Comment on above: Complaints of leg we akness (Primary Dx); Gait difficulty Start: 01-07-2024 End: 01-08-2024 Documentation procedure Mammography Coordinator [facility] Department Start: 01-07-2024 End: 01-08-2024 Letter encounter Mammography Coordinator [facility] Department Start: 01-07-2024 End: 01-08-2024 Telephone encounter Raphael Perdomo APRN.CNP Work Phone: Hematology/Oncology Comment on above: Patient Update Start: 01-06-2024 End: 01-06-2024 ambulatory Charleen O'Casper [facility] Comment on above: Complaints of leg we akness (Primary Dx); Gait difficulty Start: 01-06-2024 End: 01-06-2024 Subsequent hospital visit by physician Screen Mammo [facility] M[facility] Comment on above: Screening mammogram for breast cancer [Z12.31] Start: 01-02-2024 End: 01-02-2024 ambulatory [facility] Facility:[facility] Start: 01-01-2024 End: 01-01-2024 Telephone encounter Wesly Sepulveda APRN.CNP Work Phone: [facility] Comment on above: Appointment Orders Start: 12-22-2023 End: 12-24-2023 Telephone encounter Ruddy Cooper MD Work Phone: Family Medicine [place] Comment on above: requesting med alert rx Medication Problem Start: 12-19-2023 End: 12-19-2023 Telephone encounter Ruddy Cooper MD Work Phone: Internal Medicine [place] Comment on above: Patient Update Start: 12-19-2023 End: 12-19-2023 ambulatory [facility] Facility:[facility] Start: 12-19-2023 End: 12-19-2023 Office outpatient visit 25 minutes Bradford Love APRN.DEFLECTOR OPERATOR Work Phone: Internal Medicine [place] Comment on above: Hypertension (Primar y Dx); Syncope, unspecified syncope type; Type 2 diabetes mellitus with diabetic neuropathy, without long-term current use of insulin ([facility]); Screening for diabetic retinopathy; Encounter for immunization; Tinnitus of both ears; 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); Complaints of leg weakness Start: 12-16-2023 End: 12-16-2023 ambulatory Charleen O'Casper PT [facility] Comment on above: Complaints of leg we akness (Primary Dx); Gait difficulty Start: 12-10-2023 End: 12-10-2023 Patient encounter procedure Ruddy Cooper MD Work Phone: Internal Medicine [place] Comment on above: Patient left without being seen (Primary Dx) Start: 12-10-2023 End: 12-10-2023 ambulatory RUDDY COOPER Facility:[facility] Start: 12-09-2023 End: 12-09-2023 ambulatory [facility] Facility:[facility] Start: 12-08-2023 End: 12-08-2023 ambulatory Charleen O'Casper PT [place] [facility] Comment on above: Complaints of leg we akness (Primary Dx); Gait difficulty Start: 11-26-2023 End: 11-26-2023 ambulatory Charleen O'Casper PT [facility] Comment on above: Complaints of leg we akness (Primary Dx); Gait difficulty Start: 11-25-2023 Refill Polo Abdullahi Work Phone: Hematology/Oncology Comment on above: Refill Request Start: 11-25-2023 Telephone encounter Bradford Vishal walker APRN.DEFLECTOR OPERATOR Work Phone: [facility] Comment on above: Medication Question Start: 11-24-2023 End: 11-24-2023 ambulatory Charleen O'Casper PT [facility] Comment on above: Complaints of leg we akness (Primary Dx); Gait difficulty Start: 11-19-2023 End: 11-19-2023 ambulatory Charleen O'Casper PT [facility] Comment on above: Complaints of leg we akness (Primary Dx); Gait difficulty Start: 11-17-2023 End: 11-17-2023 ambulatory Charleen O'Casper PT [facility] Comment on above: Complaints of leg we akness (Primary Dx); Gait difficulty Start: 11-10-2023 End: 11-10-2023 ambulatory Marissa Lobato ROLL SLICING MACHINE TENDER Work Phone: [facility] Comment on above: Complaints of leg we akness (Primary Dx); Gait difficulty Start: 11-06-2023 End: 11-06-2023 ambulatory Charleen O'Casper PT [facility] Comment on above: Complaints of leg we akness (Primary Dx); Gait difficulty Start: 11-03-2023 End: 11-03-2023 ambulatory Charleen O'Casper PT [facility] Comment on above: Complaints of leg we akness (Primary Dx); Gait difficulty Start: 10-29-2023 End: 10-29-2023 ambulatory Charleen O'Casper PT [facility] Comment on above: Complaints of leg we akness (Primary Dx); Gait difficulty Start: 10-27-2023 End: 10-27-2023 ambulatory Charleen O'Casper PT [facility] Comment on above: Complaints of leg we akness (Primary Dx); Gait difficulty Start: 10-22-2023 Telephone encounter Ruddy almeida MD Work Phone: [facility] Comment on above: Concerned for pt-see note; Vomiting; Shortness of Breath Start: 10-22-2023 End: 10-22-2023 ambulatory Charleen O'Casper PT [facility] Comment on above: Complaints of leg we akness (Primary Dx); Gait difficulty Start: 10-20-2023 End: 10-20-2023 ambulatory Charleen O'Casper PT [facility] Comment on above: Complaints of leg we akness (Primary Dx); Gait difficulty Start: 10-14-2023 End: 10-14-2023 Subsequent hospital visit by physician Xr [facility] Work Phone: Radiology Comment on above: Acute left ankle jose luis n [M25.572] Start: 10-14-2023 End: 10-14-2023 ambulatory RUDDY COOPER Facility:[facility] Start: 10-14-2023 End: 10-14-2023 Office outpatient visit 15 minutes Ruiz Serrato APRN.MANUAL LATHE OPERATOR Work Phone: [place] [facility] Comment on above: Acute left ankle jose luis n (Primary Dx); Foot pain, left Start: 10-02-2023 Telephone encounter Ruddy almeida MD Work Phone: Internal Medicine [place] Comment on above: Results Start: 09-29-2023 End: 09-29-2023 ambulatory Charleen O'Casper PT [facility] Comment on above: Gait difficulty (Monica tosha Dx); Complaints of leg weakness Start: 09-26-2023 End: 09-26-2023 Subsequent hospital visit by physician [facility] (I-Stat) Work Phone: Cat Scan Comment on above: History of abdominal surgery [Z98.890] Start: 09-15-2023 Refill Bradford Love APRN.CNS Work Phone: Internal Medicine [place] Comment on above: Refill Request Start: 09-10-2023 End: 09-10-2023 ambulatory Treatment Rm [address] [facility] Work Phone: Hematology/Oncology Comment on above: Osteoporosis, unspec ified (Primary Dx) Invasive ductal carc inoma of breast, left (HCC) (Primary Dx); Ductal carcinoma in situ (DCIS) of right breast Start: 09-10-2023 End: 09-10-2023 Patient encounter procedure Raphael Perdomo FILM AND VIDEO EDITOR.MANUAL LATHE OPERATOR Work Phone: Hematology/Oncology Start: 09-08-2023 End: 09-08-2023 Office outpatient visit 25 minutes Bradford Love APRN.DEFLECTOR OPERATOR Work Phone: Internal Medicine [place] Comment on above: Screening for diabet ic retinopathy (Primary Dx); Encounter for immunization; Type 2 diabetes mellitus with diabetic neuropathy, without long-term current use of insulin (HCC); Insomnia, unspecified type; History of abdominal surgery; Abdominal pain, chronic, generalized; 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); Gait difficulty; Complaints of leg weakness Start: 09-05-2023 End: 09-05-2023 Patient encounter procedure Ruddy Cooper MD Work Phone: Internal Medicine [place] Comment on above: Patient left without being seen (Primary Dx) Start: 06-11-2023 Telephone encounter Ruddy almeida MD Work Phone: Internal Medicine [place] Comment on above: results Start: 05-26-2023 End: 05-26-2023 Office outpatient visit 40 minutes Ruddy Cooper MD Work Phone: Internal Medicine [place] Comment on above: Peripheral arterial disease (HCC) (Primary Dx); Primary hypertension; Type 2 diabetes mellitus with diabetic neuropathy, without long-term current use of insulin (HCC); Tinnitus of both ears; Vitamin D deficiency; Mixed hyperlipidemia; Muscle cramping Start: 04-03-2023 End: 04-03-2023 ambulatory Raphael Perdomo FILM AND VIDEO EDITOR.MANUAL LATHE OPERATOR Work Phone: Hematology/Oncology Comment on above: Invasive ductal carc inoma of breast, left (HCC) (Primary Dx); Ductal carcinoma in situ (DCIS) of right breast Start: 04-03-2023 End: 04-03-2023 Patient encounter procedure Raphael Perdomo APRN.MANUAL LATHE OPERATOR Work Phone: [place] [facility] Start: 03-11-2023 Telephone encounter Zafar simmons MD Work Phone: [facility] Comment on above: Results Start: 02-27-2023 End: 02-27-2023 Subsequent hospital visit by physician Mri [employer] [facility] (I-Stat/1.5t) Work Phone: Radiology Comment on above: Intracranial aneurys m [I67.1] Start: 02-26-2023 Telephone encounter Ruddy almeida MD Work Phone: Internal Medicine [place] Comment on above: Appointment Start: 01-03-2023 End: 01-03-2023 Subsequent hospital visit by physician Diagnostic Mammo [facility]amm[facility] Comment on above: Bilateral fibrocysti c breast changes [N60.11, N60.12] Start: 12-24-2022 End: 12-24-2022 Patient encounter procedure Sheela Celeste PA-C Work Phone: [facility] Comment on above: Bilateral fibrocysti c breast changes (Primary Dx); Personal history of breast cancer; S/P bilateral breast lumpectomy; Use of anastrozole; Encounter for screening mammogram for malignant neoplasm of breast; Mass of lower outer quadrant of right breast Start: 12-24-2022 End: 12-24-2022 Subsequent hospital visit by physician Clinic [facility] Mammo Main Mammography Comment on above: Canceled (CC cx: Equ ipment, Prep, Appropriateness) Start: 12-23-2022 Orders Only Sheela Celeste PA-C Work Phone: [facility] Comment on above: Screening breast exa mination (Primary Dx) Start: 11-29-2022 E-mail encounter fro m caregiver [facility] Provider [facility] Start: 11-29-2022 Follow-up encounter [facility] Provider End [facility] Comment on above: Follow up Start: 11-27-2022 Telephone encounter Raphael draper FILM AND VIDEO EDITOR.MANUAL LATHE OPERATOR Work Phone: Hematology/Oncology Comment on above: Medication Problem Start: 11-22-2022 Telephone encounter Bradford walker FILM AND VIDEO EDITOR.DEFLECTOR OPERATOR Work Phone: Internal Medicine [place] Comment on above: Results Start: 10-18-2022 End: 10-18-2022 Office outpatient visit 15 minutes Bradford Love APRN.DEFLECTOR OPERATOR Work Phone: Internal Medicine [place] Comment on above: Primary hypertension (Primary Dx); Encounter for immunization; Need for shingles vaccine; History of extraction of renal calculus; History of hydronephrosis Start: 10-10-2022 Telephone encounter Raphael draper APRN.MANUAL LATHE OPERATOR Work Phone: Hematology/Oncology Comment on above: Patient Update Start: 09-30-2022 Telephone encounter Ruddy almeida MD Work Phone: Internal Medicine [place] Comment on above: Patient Question Start: 09-04-2022 Refill Ruddy brothers MD Work Phone: Family Medicine [place] Comment on above: Refill Request Start: 08-28-2022 Refill Ruddy brothers MD Work Phone: Family Medicine [place] Start: 08-06-2022 Refill Ruddy brothers MD Work Phone: Internal Medicine [place] Comment on above: Refill Request Start: 07-24-2022 Documentation procedure Mammog estela Coordinator [facility] Start: 07-24-2022 Letter encounter Mammography Coordinator [facility] Department Start: 07-24-2022 End: 07-24-2022 Subsequent hospital visit by physician Diagnostic Mammo [facility] Mammogram Start: 06-27-2022 End: 06-27-2022 Office outpatient visit 25 minutes Bradford Love APRN.DEFLECTOR OPERATOR Work Phone: Internal Medicine [place] Comment on above: Type 2 diabetes lona itus with diabetic neuropathy, without long-term current use of insulin (HCC) (Primary Dx); Vitamin D deficiency; Insomnia, unspecified type Start: 05-24-2022 End: 05-24-2022 ambulatory Raphael Perdomo APRN.MANUAL LATHE OPERATOR Work Phone: Hematology/Oncology Comment on above: Invasive ductal carc inoma of breast, left (HCC) (Primary Dx); Ductal carcinoma in situ (DCIS) of right breast Start: 05-24-2022 End: 05-24-2022 Patient encounter procedure Raphael Perdomo FILM AND VIDEO EDITOR.MANUAL LATHE OPERATOR Work Phone: [place] [facility] Start: 04-24-2022 Refill Ruddy brothers MD Work Phone: Internal Medicine [place] Comment on above: Refill Request Start: 04-18-2022 End: 04-18-2022 ambulatory Treatment Rm 11 [place] [facility] Work Phone: Hematology/Oncology Comment on above: Osteoporosis, unspec ified (Primary Dx) Start: 03-29-2022 Telephone encounter Raphael draper FILM AND VIDEO EDITOR.MANUAL LATHE OPERATOR Work Phone: Hematology/Oncology Comment on above: Appointment Start: 03-28-2022 End: 03-28-2022 Office outpatient visit 25 minutes Bradford Love APRN.DEFLECTOR OPERATOR Work Phone: Internal Medicine [place] Comment on above: Preop exam for inter nal medicine (Primary Dx); Type 2 diabetes mellitus with diabetic neuropathy, without long-term current use of insulin (HCC); Need for shingles vaccine; Encounter for immunization; Screening for diabetic retinopathy; Vitamin D deficiency Start: 03-28-2022 End: 03-28-2022 Patient encounter status Bradford Love APRN.DEFLECTOR OPERATOR Work Phone: Internal Medicine [place] Start: 03-01-2022 Orders Only Zafar Jones MD Work Phone: Endovascular Center Comment on above: Intracranial aneurys m (Primary Dx); Nonruptured cerebral aneurysm Start: 02-18-2022 End: 02-18-2022 Subsequent hospital visit by physician Mri [facility] (I-Stat/1.5t) Work Phone: Radiology Comment on above: 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] Start: 01-14-2022 Telephone encounter Monae Muhammad (R n) RN Breast Center Comment on above: Candle Wicker - O ther (Sending records to [facility]) Start: 01-07-2022 Telephone encounter Michael collins MD Work Phone: Plastic Surgery Comment on above: Patient Question (Horacio dupree called and had question about inplants after radiation.) Start: 12-19-2021 End: 12-19-2021 ambulatory Julianne Saab PT Work Phone: [facility] Comment on above: 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) Start: 12-17-2021 End: 12-17-2021 ambulatory Julianne Saab PT Work Phone: [facility] Comment on above: 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) Start: 12-16-2021 Orders Only Ruddy brohters MD Work Phone: Internal Medicine [place] Comment on above: Vitamin D deficiency (Primary Dx); Type 2 diabetes mellitus with diabetic neuropathy, without long-term current use of insulin (HCC); Generalized anxiety disorder; Mixed hyperlipidemia Start: 12-13-2021 Telephone encounter Zafar simmons MD Work Phone: [facility] Comment on above: Patient Question Start: 12-12-2021 End: 12-12-2021 ambulatory Julianne Saab PT Work Phone: [facility] Comment on above: 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) Start: 12-10-2021 End: 12-10-2021 ambulatory Julianne Saab PT Work Phone: [facility] Comment on above: 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) Start: 12-05-2021 End: 12-05-2021 ambulatory Nunu Luz ROLL SLICING MACHINE TENDER Work Phone: [facility] Comment on above: 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) Start: 12-05-2021 Telephone encounter Zafar simmons MD Work Phone: [facility] Comment on above: Medical Clearance (R eceived fax request for surgical clearance from [facility] - scanned into [facility]) Start: 12-04-2021 Refill Raphael cuevas APRN.MANUAL LATHE OPERATOR Work Phone: Hematology/Oncology Comment on above: Refill Request Start: 12-03-2021 End: 12-03-2021 ambulatory Nunu Luz ROLL SLICING MACHINE TENDER Work Phone: [facility] Comment on above: 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) Start: 12-03-2021 E-mail encounter fro m caregiver [facility] Start: 11-29-2021 Documentation procedure [facility]ammog estela [facility] Start: 11-29-2021 Letter encounter Mammography Coordinator [facility] Department Start: 11-29-2021 End: 11-29-2021 Subsequent hospital visit by physician Screen Mammo Main Mammography Start: 11-29-2021 End: 11-29-2021 Patient encounter procedure Sheela Celeste PA-C Work Phone: [facility] Comment on above: Bilateral fibrocysti c breast changes (Primary Dx); Personal history of breast cancer; S/P bilateral breast lumpectomy; Use of anastrozole; Encounter for screening mammogram for malignant neoplasm of breast Start: 11-28-2021 End: 11-28-2021 ambulatory Julianne Saab PT Work Phone: [facility] Comment on above: 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) Start: 11-26-2021 End: 11-26-2021 ambulatory Julianne Saab PT Work Phone: [facility] Comment on above: 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) Start: 11-22-2021 End: 11-22-2021 ambulatory Julianne Saab PT Work Phone: [facility] Comment on above: 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) Start: 11-21-2021 End: 11-21-2021 ambulatory Raphael Perdomo FILM AND VIDEO EDITOR.MANUAL LATHE OPERATOR Work Phone: Hematology/Oncology Comment on above: Invasive ductal carc inoma of breast, left (HCC) (Primary Dx); Ductal carcinoma in situ (DCIS) of right breast Start: 11-21-2021 End: 11-21-2021 Patient encounter procedure Raphael Perdomo FILM AND VIDEO EDITOR.MANUAL LATHE OPERATOR Work Phone: [facility] Start: 11-19-2021 End: 11-19-2021 ambulatory Julianne Saab PT Work Phone: [facility] Comment on above: 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) Start: 11-15-2021 End: 11-15-2021 ambulatory Julianne Saab PT Work Phone: [facility] Comment on above: 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) Start: 11-13-2021 End: 11-13-2021 ambulatory Julianne Saab PT Work Phone: [facility] Comment on above: 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) Start: 10-31-2021 End: 10-31-2021 ambulatory Julianne Saab PT Work Phone: [facility] Comment on above: 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) Start: 10-23-2021 End: 10-23-2021 ambulatory Treatment Rm 12 [place] [facility] Work Phone: Hematology/Oncology Comment on above: Osteoporosis, unspec ified (Primary Dx) Start: 10-17-2021 End: 10-17-2021 Office outpatient visit 25 minutes Ruddy Cooper MD Work Phone: Internal Medicine [place] Comment on above: Insomnia, unspecifie d type (Primary Dx); Anxiety; Vitamin D deficiency; Type 2 diabetes mellitus with diabetic neuropathy, without long-term current use of insulin (HCC); Encounter for long-term current use of medication; Malignant neoplasm of nipple of left breast in female, unspecified estrogen receptor status (HCC) Start: 10-08-2021 End: 10-08-2021 Subsequent hospital visit by physician Xr [facility] [place] Work Phone: Radiology Comment on above: Acute right ankle pa in [M25.571] Start: 10-08-2021 End: 10-08-2021 Patient encounter procedure Ruiz Serrato APRN.CNP Work Phone: [place] [facility] Comment on above: Acute right ankle pa in (Primary Dx) Start: 09-05-2021 Refill Ruddy brothers MD Work Phone: Internal Medicine [place] Comment on above: Refill Request Start: 08-29-2021 End: 08-31-2021 Evaluation and management of inpatient [facility] 3 Start: 08-07-2021 End: 08-07-2021 Subsequent hospital visit by physician Radio General Lurdes Macias Work Phone: Radiology Comment on above: Right knee pain, uns pecified chronicity [M25.561] Start: 08-06-2021 Telephone encounter Candelario woodward MD Work Phone: Orthopaedics Comment on above: Appointment (constru ction ) Start: 12-25-2020 End: 12-25-2020 Subsequent hospital visit by physician [facility] Work Phone: Radiology Comment on above: Cough [R05] Start: 05-06-2020 End: 05-06-2020 Subsequent hospital visit by physician [facility] Work Phone: Radiology Comment on above: Acute left ankle jose luis n [M25.572] Procedures Date Procedure Procedure Detail Performing Clinician Start: 09-08-[address] Ruddy Cooper MD Work Phone: Start: 08-30-[address] Ruddy Cooper MD Work Phone: Start: 08-25-2024 Urnls dip stick/tabl et reagent auto microscopy Dr. Ruddy Cooper MD Work Phone: Start: 08-25-2024 CT cervical spine wi thout contrast Dr. Ruddy Cooper MD Work Phone: Start: 08-25-2024 CT of head without contrast Dr. Ruddy Cooper MD Work Phone: Start: 08-25-2024 CT of thorax, abdome n and pelvis with contrast Dr. Ruddy Cooper MD Work Phone: Start: 08-25-[address] Ruddy Cooper MD Work Phone: Start: 08-09-2024 Urnls dip stick/tabl et rgnt auto w/o microscopy Charleen Alejandre FILM AND VIDEO EDITOR.MANUAL LATHE OPERATOR Work Phone: Start: 01-06-2024 Screening digital br east tomosynthesis bi Bradford Love FILM AND VIDEO EDITOR.DEFLECTOR OPERATOR Work Phone: Start: 10-14-2023 Radex ankle complete minimum 3 views Ruiz Bakerlondon FILM AND VIDEO EDITOR.MANUAL LATHE OPERATOR Work Phone: Start: 02-27-2023 Mra head w/o & w/con trast material Adeline Mares FILM AND VIDEO EDITOR.MANUAL LATHE OPERATOR Work Phone: Start: 01-03-2023 Us breast uni real t jordana with image limited Sheelatiffanie Celeste PA-C Work Phone: Start: 01-03-2023 Digital breast tomosynthesis bilateral Sheelatiffanie Celeste PA-C Work Phone: Start: 07-24-2022 Digital breast tomosynthesis unilateral [facility] Provider Start: 02-18-2022 Mra head w/o & w/con trast material Gamaliel Reardon FILM AND VIDEO EDITOR.MANUAL LATHE OPERATOR Work Phone: Start: 11-29-2021 WILLIE SCREENING W AVNI Er tiffaine Celeste PA-C Work Phone: Start: 10-08-2021 Radex ankle complete minimum 3 views Ruiz Bakerlondon FILM AND VIDEO EDITOR.MANUAL LATHE OPERATOR Work Phone: Start: 08-31-2021 Extracorporeal shock wave lithotripsy Start: 08-30-2021 End: 08-30-2021 Viral antigen assay Start: 08-30-2021 Diagnostic radiograp hy of abdomen Start: 08-29-2021 CT of abdomen and pe lvis without contrast Start: 08-07-2021 Radiologic examinati on knee 3 views Rigoberto Chase FILM AND VIDEO EDITOR.MANUAL LATHE OPERATOR Work Phone: Start: 12-25-2020 Radiologic exam ches t 2 views Vivi Pedroza FILM AND VIDEO EDITOR.MANUAL LATHE OPERATOR Work Phone: Start: 05-06-2020 Radex ankle complete minimum 3 views Marbin Burgess MD Work Phone: Start: 08-18-2017 Colonoscopy Candelario woodward MD Work Phone: Start: 08-13-2017 Colonoscopy Julianne Gayle son PT Work Phone: H/O: surgery History of extra ction of renal calculus Bradford Love FILM AND VIDEO EDITOR.DEFLECTOR OPERATOR Work Phone: H/O: surgery History of abdom inal surgery Bradford Love FILM AND VIDEO EDITOR.DEFLECTOR OPERATOR Work Phone: H/O: surgery History of abdom inal surgery Ct (I-Stat) Work Phone: H/O: surgery History of abdom inal surgery Ruddy Cooper MD Work Phone: H/O: surgery S/P coil emboliz ation of cerebral aneurysm Dr. Ruddy Cooper MD Work Phone: Comment on above: 2004 History of bilateral mastectomy S/P bilateral breast lumpectomy Sheela Celeste PA-C Work Phone: History of mastectomy S/P bilate ral breast lumpectomy Sheela Celeste PA-C Work Phone: Plan of Treatment Date Care Activity Detail Author Start: 09-14-2025 BP Controlled (<130/80) BP Controlled (<130/80) [facility] Start: 09-07-2025 BP Controlled (<130/80) BP Controlled (<130/80) [facility] Start: 08-17-2025 Hepatitis B screening Urine Albumin:Creatinine Ratio [facility] Start: 08-17-2025 Hepatitis B surface antibody level LDL Cholesterol [facility] Start: 08-16-2025 BP Controlled (<130/80) BP Controlled (<130/80) [facility] Start: 06-21-2025 BP Controlled (<130/80) BP Controlled (<130/80) [facility] Start: 03-16-2025 End: 03-16-2025 ambulatory 03/16/2025 1:00 PM EST Visit (SP) Office Hematology/Oncology [address] [place] [address] Raphael Perdomo APRN.MANUAL LATHE OPERATOR [address] [place] [address] 6 MTH OV* Hematology/Oncology Comment on above: 6 MTH OV* Start: 03-08-2025 End: 03-08-2025 Patient encounter procedure 03/08/2025 1:00 PM EST Office Visit NEUROLOGY [address] [place] [address] Melani Zuniga FILM AND VIDEO EDITOR.MANUAL LATHE OPERATOR [address] [place] [address] Residual Aneurysm NEUROLOGY Comment on above: Residual Aneurysm Start: 03-01-2025 End: 03-01-2025 Patient encounter procedure 03/01/2025 1:00 PM EST Appointment Cat Scan [address] [place], [place] [address] Dx: 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] Cat Scan Comment on above: Dx: 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 ] Start: 02-25-2025 Annual PCP Team Chronic Disease Visit Annual PCP Team Chronic Disease Visit [facility] Start: 02-25-2025 BP Controlled (<130/80) BP Controlled (<130/80) [facility] Start: 01-06-2025 End: 01-06-2025 Patient encounter procedure 01/06/2025 11:30 AM EDT Appointment Mammogram [address] [place], [place] [id number] Encounter for screening mammogram for breast cancer [Z12.31] Mammogram Comment on above: Encounter for screening mammogram for br east cancer [Z12.31] Start: 12-27-2024 Influenza vaccination Influenza Vaccine (Season Ended) [facility] Start: 12-18-2024 BP Controlled (<130/80) BP Controlled (<130/80) [facility] Start: 12-16-2024 Hemoglobin A1c measurement HbA1C [facility] Start: 12-11-2024 Glaucoma screening Dilated Retinal Exam [facility] Start: 12-09-2024 Annual PCP Team Chronic Disease Visit Annual PCP Team Chronic Disease Visit [facility] Start: 12-06-2024 End: 12-06-2024 Patient encounter procedure 12/06/2024 1:00 PM EDT Office Visit Internal Medicine [place] [address] [place] [address] Bradford Love APRN.DEFLECTOR OPERATOR [address] [place] [address] 2024 Medicare Wellness Z00.00/HCC Gap Closure Internal Medicine [place] Comment on above: 2024 Medicare Wellness Z00.00/HCC Gap Cl osure Start: 11-22-2024 End: 11-22-2024 Patient encounter procedure 11/22/2024 12:30 PM EDT Appointment Radiology [address] [place] [id number] BONE DENSITY Radiology Comment on above: BONE DENSITY Start: 11-04-2024 Screening for osteoporosis Bone Density Screening [facility] Start: 10-25-2024 Influenza [facility] Comment on above: Postponed from 12/28/2023 (Declined at t his time) Start: 10-13-2024 BP Controlled (<130/80) BP Controlled (<130/80) [facility] Start: 09-14-2024 End: 09-14-2024 ambulatory 09/14/2024 1:00 PM EDT Visit (SP) Office Hematology/Oncology [address] [place] [address] Raphael Perdomo APRN.MANUAL LATHE OPERATOR [address] [place] [address] 6 MO OV Hematology/Oncology Comment on above: 6 MO OV Start: 09-13-2024 End: 09-13-2024 Patient encounter procedure Internal Medicine [place] Comment on above: 3mo follow up Start: 09-09-2024 [facility] Start: 09-07-2024 End: 12-07-2024 Urinalysis complete panel - Urine URINALYSIS (WITH MICROSCOPIC) WITH CULTURE IF INDICATED Lab Routine Urinary tract infection without hematuria, site unspecified Expected: 09/07/2024, Expires: 12/07/2024 [facility] Comment on above: Expected: 09/07/2024, Expires: Start: 09-06-2024 End: 09-06-2024 Patient encounter procedure 09/06/2024 2:20 PM EDT Office Visit Internal Medicine [place] [address] [place] [address] Ruddy Cooper MD [address] [place] [address] Hospital Follow Up/TCM eligible through 09/13/2024- HCC Gap Closure Internal Medicine [place] Comment on above: Hospital Follow Up/TCM eligible through 09/13/2024- HCC Gap Closure Start: 09-04-2024 Annual PCP Team Chronic Disease Visit Annual PCP Team Chronic Disease Visit [facility] Start: 08-30-2024 Patient discharge [facility] Start: 08-30-2024 [facility] Start: 08-27-2024 [facility] Start: 08-26-2024 End: 08-26-2024 ambulatory 08/26/2024 11:30 AM EDT Visit (SP) Office Hematology/Oncology [address] [place] [address] Raphael Perdomo APRN.MANUAL LATHE OPERATOR [address] [place] [address] 6 MO OV Hematology/Oncology Comment on above: 6 MO OV Start: 08-26-2024 Speech therapy assessment [facility] Start: 08-26-2024 Application of intermittent pneumatic compression device [facility] Start: 08-26-2024 Assessment of risk of venous thromboembolism [facility] Start: 08-26-2024 Care regimes management [facility] Start: 08-26-2024 Fall prevention [facility] Start: 08-26-2024 Insertion of catheter into peripheral vein [facility] Start: 08-26-2024 Introduction of urinary catheter [facility] Start: 08-26-2024 Measuring intake and output [facility] Start: 08-26-2024 Notification of physician [facility] Start: 08-26-2024 Providing care according to standard [facility] Start: 08-26-2024 Provision of activity privileges [facility] Start: 08-26-2024 Referral to occupational therapist [facility] Start: 08-26-2024 Referral to service [facility] Start: 08-26-2024 End: 08-26-2024 [facility] Start: 08-26-2024 Following clinical pathway protocol [facility] Start: 08-25-2024 Admission procedure [facility] Start: 08-25-2024 End: 08-25-2024 Patient encounter procedure 08/25/2024 1:30 PM EDT Office Visit Geriatrics [address] [place] [address] Zabrnia Meyer MD [address] [place] [address] Cognitive impairment [R41.89] Geriatrics Comment on above: Cognitive impairment [R41.89] Start: 08-16-2024 End: 11-15-2024 IMMUNOFIXATION SCREEN, SERUM IMMUNOFIXATION SCREEN, SERUM Lab Routine DM type 2 with diabetic peripheral neuropathy (HCC) Expected: 08/16/2024, Expires: 11/15/2024 [facility] Comment on above: Expected: 08/16/2024, Expires: Start: 08-16-2024 End: 11-15-2024 Methylmalonate [Moles/volume] in Serum or Plasma METHYLMALONIC ACID Lab Routine DM type 2 with diabetic peripheral neuropathy (HCC) Expected: 08/16/2024, Expires: 11/15/2024 [facility] Comment on above: Expected: 08/16/2024, Expires: Start: 08-16-2024 End: 11-15-2024 Pyridoxine [Mass/volume] in Serum or Plasma VITAMIN B6/PYRIDOXIN Lab Routine DM type 2 with diabetic peripheral neuropathy (HCC) Expected: 08/16/2024, Expires: 11/15/2024 [facility] Work Phone: Comment on above: Expected: 08/16/2024, Expires: Start: 08-16-2024 End: 08-16-2024 Patient encounter procedure 08/16/2024 1:00 PM EDT Office Visit Neurology [address] [place], [place] [id number] Khris Salinas MD [address] [place], [place] [id number] Severe neuropathy in bilateral upper and lower extremities Neurology Comment on above: Severe neuropathy in bilateral upper and lower extremities Start: 08-13-2024 End: 08-13-2024 Patient encounter procedure 08/13/2024 12:00 PM EDT Office Visit Neurology [address] [place] [address] Tone Guzman MD [address] [facility] [place] [address] [id number] Severe neuropathy in bilateral upper and lower extremities Neurology Comment on above: Severe neuropathy in bilateral upper and lower extremities Start: 06-25-2024 Hepatitis B screening Urine Albumin:Creatinine Ratio [facility] Start: 06-25-2024 Hepatitis B surface antibody level LDL Cholesterol [facility] Start: 06-23-2024 End: 09-22-2024 CREATININE BLD CREATININE BLD Lab Routine Screening for nephropathy Expected: 06/23/2024, Expires: 09/22/2024 [facility] Comment on above: Expected: 06/23/2024, Expires: Start: 06-22-2024 End: 06-22-2024 Nursing evaluation of patient and report 06/22/2024 11:00 AM EST Nurse Visit Endocrinology [address] [place] [address] Norris Young, LAURITA [address] [id number] Type 2 diabetes mellitus with diabetic neuropathy, without long-term current use of insulin Endocrinology Comment on above: Type 2 diabetes mellitus with diabetic n europathy, without long-term current use of insulin Start: 06-21-2024 End: 09-20-2024 Lipid 1996 panel - Serum or Plasma LIPID PANEL BASIC Lab Routine Type 2 diabetes mellitus with diabetic neuropathy, without long-term current use of insulin (HCC) Expected: 06/21/2024, Expires: 09/20/2024 [facility] Comment on above: Expected: 06/21/2024, Expires: Start: 06-21-2024 End: 09-20-2024 Microalbumin/Creatinine [Mass Ratio] in Urine ALBUMIN/CREATININE RATIO, URINE Lab Routine Type 2 diabetes mellitus with diabetic neuropathy, without long-term current use of insulin (HCC) Expected: 06/21/2024, Expires: 09/20/2024 [facility] Work Phone: Comment on above: Expected: 06/21/2024, Expires: Start: 06-20-2024 End: 09-19-2024 Hemoglobin A1c in Blood HEMOGLOBIN A1C Lab Routine Type 2 diabetes mellitus with diabetic neuropathy, without long-term current use of insulin (HCC) Expected: 06/20/2024 (Approximate), Expires: 09/19/2024 [facility] Comment on above: Expected: 06/20/2024 (Approximate), Expi res: 09/19/2024 Start: 06-14-2024 End: 06-14-2024 Patient encounter procedure 06/14/2024 11:00 AM EST Office Visit [facility] [place] [address] [place] [address] Bradford Love APRN.CNS [address] [place] [address] 3 month follow up [facility] [place] Comment on above: 3 month follow up Start: 06-10-2024 Hemoglobin A1c measurement HbA1C [facility] Start: 05-26-2024 Annual PCP Team Chronic Disease Visit Annual PCP Team Chronic Disease Visit [facility] Start: 04-03-2024 BP Controlled (<130/80) BP Controlled (<130/80) [facility] Start: 03-12-2024 End: 03-12-2024 Patient encounter procedure 03/12/2024 3:00 PM EST Office Visit [facility] Medicine [place] [address] [place] [address] Ruddy Cooper MD [address] [place] [address] 3 mo follow up [facility] [place] Comment on above: 3 mo follow up Start: 02-26-2024 End: 05-27-2024 25-hydroxyvitamin D3 [Mass/volume] in Serum or Plasma VITAMIN D 25 HYDROXY Lab Routine Vitamin D deficiency Expected: 02/26/2024, Expires: 05/27/2024 [facility] Comment on above: Expected: 02/26/2024, Expires: Start: 02-26-2024 End: 05-27-2024 EDGARDO BY IFA SCREEN EDGARDO BY IFA SCREEN Lab Routine Arthritis of hand Expected: 02/26/2024, Expires: 05/27/2024 [facility] Comment on above: Expected: 02/26/2024, Expires: Start: 02-26-2024 End: 05-27-2024 C reactive protein [Mass/volume] in Serum or Plasma C-REACTIVE PROTEIN Lab Routine Arthritis of hand Expected: 02/26/2024, Expires: 05/27/2024 [facility] Comment on above: Expected: 02/26/2024, Expires: Start: 02-26-2024 End: 05-27-2024 CBC W Auto Differential panel - Blood COMPLETE BLOOD COUNT AND DIFFERENTIAL Lab Routine Arthritis of hand Type 2 diabetes mellitus with diabetic neuropathy, without long-term current use of insulin (HCC) Encounter for long-term current use of medication Expected: 02/26/2024, Expires: 05/27/2024 [facility] Comment on above: Expected: 02/26/2024, Expires: Start: 02-26-2024 End: 05-27-2024 Comprehensive metabolic 2000 panel - Serum or Plasma COMPREHENSIVE METABOLIC PANEL Lab Routine Vitamin D deficiency Encounter for long-term current use of medication Expected: 02/26/2024, Expires: 05/27/2024 [facility] Comment on above: Expected: 02/26/2024, Expires: Start: 02-26-2024 End: 05-27-2024 Erythrocyte sedimentation rate SEDIMENTATION RATE, WESTERGREN Lab Routine Arthritis of hand Expected: 02/26/2024, Expires: 05/27/2024 [facility] Comment on above: Expected: 02/26/2024, Expires: Start: 02-26-2024 End: 05-27-2024 Hemoglobin A1c in Blood HEMOGLOBIN A1C Lab Routine Type 2 diabetes mellitus with diabetic neuropathy, without long-term current use of insulin (HCC) Expected: 02/26/2024, Expires: 05/27/2024 [facility] Comment on above: Expected: 02/26/2024, Expires: Start: 02-26-2024 End: 05-27-2024 Rheumatoid factor [Units/volume] in Serum or Plasma RHEUMATOID FACTOR Lab Routine Arthritis of hand Expected: 02/26/2024, Expires: 05/27/2024 [facility] Comment on above: Expected: 02/26/2024, Expires: Start: 02-26-2024 End: 02-26-2024 Patient encounter procedure 02/26/2024 12:20 PM EDT Office Visit Internal [facility] [place] [address] [place] [address] Ruddy Cooper MD [address] [place] [address] 3 mo follow up [facility] [place] Comment on above: 3 mo follow up Start: 02-25-2024 Annual PCP Team Chronic Disease Visit Annual PCP Team Chronic Disease Visit [facility] Start: 02-25-2024 BP Controlled (<130/80) BP Controlled (<130/80) [facility] Start: 02-25-2024 End: 02-25-2024 ambulatory [place] [facility] Comment on above: lab 6 MO OV/LAB&ZOMETA T MARRY* Q6MO ZOMETA/LAB&OV E ARISTIDES/AUTH EXP 08/24/24* no later than 230 w/lab 6 MO OV* Start: 01-27-2024 End: 01-27-2024 ambulatory 01/27/2024 1:30 PM EDT OT/PT/Speech Visit [facility] [address] [place] [address] O'Casper, Charleen, PT Gait difficulty [R26.9] Complaints of leg weakness [R29.898] [facility] Comment on above: Gait difficulty [R26.9] Complaints of le g weakness [R29.898] Start: 01-20-2024 End: 01-20-2024 ambulatory 01/20/2024 1:30 PM EDT OT/PT/Speech Visit [facility] [address] [place] [address] O'CasperCharleen, PT Gait difficulty [R26.9] Complaints of leg weakness [R29.898] [facility] Comment on above: Gait difficulty [R26.9] Complaints of le g weakness [R29.898] Start: 01-13-2024 End: 01-13-2024 ambulatory 01/13/2024 11:15 AM EDT OT/PT/Speech Visit [facility] [address] [place] [address] O'CasperAlizaCharleen, PT Gait difficulty [R26.9] Complaints of leg weakness [R29.898] [facility] Comment on above: Gait difficulty [R26.9] Complaints of le g weakness [R29.898] Start: 01-06-2024 End: 01-06-2024 ambulatory 01/06/2024 1:30 PM EDT OT/PT/Speech Visit [facility] [address] [place] [address] O'CasperCharleen, PT Gait difficulty [R26.9] Complaints of leg weakness [R29.898] [facility] Comment on above: Gait difficulty [R26.9] Complaints of le g weakness [R29.898] Start: 01-06-2024 End: 01-06-2024 Patient encounter procedure 01/06/2024 12:50 PM EDT Appointment Mammogram [address] [place] [address] [facility] Comment on above: [facility] Start: 01-05-2024 End: 01-05-2024 Patient encounter procedure [facility] Comment on above: yearly follow up Start: 01-02-2024 End: 01-02-2024 Patient encounter procedure 01/02/2024 11:20 AM EDT Office Visit Cardiology [address] [place] [address] Hypertension [I10] Cardiology Comment on above: Hypertension [I10] Start: 12-28-2023 Covid-19 Vaccine () Covid-19 Vaccine () [facility] Start: 12-28-2023 Covid-19 Vaccine () Covid-19 Vaccine () [facility] Start: 12-28-2023 Influenza vaccination [facility] Start: 12-15-2023 End: 12-15-2023 ambulatory 12/15/2023 2:45 PM EDT OT/PT/Speech Visit [facility] [address] [place] [address] Charelen Rocha, PT Gait difficulty [R26.9] Complaints of leg weakness [R29.898] [facility] Comment on above: Gait difficulty [R26.9] Complaints of le g weakness [R29.898] Start: 12-10-2023 End: 12-10-2023 Patient encounter procedure 12/10/2023 2:00 PM EDT Office Visit [facility] [place] [address] [place] [address] Ruddy Cooper MD [address] [place] [address] 3 mo follow up [facility] [place] Comment on above: 3 mo follow up Start: 12-09-2023 End: 03-09-2024 Hemoglobin A1c in Blood HEMOGLOBIN A1C Lab Routine Type 2 diabetes mellitus with diabetic neuropathy, without long-term current use of insulin (HCC) Expected: 12/09/2023 (Approximate), Expires: 03/09/2024 [facility] Comment on above: Expected: 12/09/2023 (Approximate), Expi res: 03/09/2024 Start: 11-26-2023 End: 11-26-2023 ambulatory 11/26/2023 12:00 PM EDT OT/PT/Speech Visit [facility] [address] [place] [address] O'CasperCharleen, PT Gait difficulty [R26.9] Complaints of leg weakness [R29.898] [facility] Comment on above: Gait difficulty [R26.9] Complaints of le g weakness [R29.898] Start: 11-24-2023 End: 11-24-2023 ambulatory 11/24/2023 12:30 PM EDT OT/PT/Speech Visit [facility] [address] [place] [address] O'Casper, Charleen, PT Gait difficulty [R26.9] Complaints of leg weakness [R29.898] [facility] Comment on above: Gait difficulty [R26.9] Complaints of le g weakness [R29.898] Start: 11-19-2023 End: 11-19-2023 ambulatory 11/19/2023 12:45 PM EDT OT/PT/Speech Visit [facility] [address] [place] [address] O'Casper, Charleen, PT Gait difficulty [R26.9] Complaints of leg weakness [R29.898] [facility] Comment on above: Gait difficulty [R26.9] Complaints of le g weakness [R29.898] Start: 11-17-2023 End: 11-17-2023 ambulatory 11/17/2023 12:30 PM EDT OT/PT/Speech Visit [facility] [address] [place] [address] O'CasperCharleen, PT Gait difficulty [R26.9] Complaints of leg weakness [R29.898] [facility] Comment on above: Gait difficulty [R26.9] Complaints of le g weakness [R29.898] Start: 11-12-2023 End: 11-12-2023 ambulatory 11/12/2023 12:45 PM EDT OT/PT/Speech Visit [facility] [address] [place] [address] O'CasperAlizaCharleen, PT Gait difficulty [R26.9] Complaints of leg weakness [R29.898] [facility] Comment on above: Gait difficulty [R26.9] Complaints of le g weakness [R29.898] Start: 11-10-2023 End: 11-10-2023 ambulatory 11/10/2023 12:30 PM EDT OT/PT/Speech Visit [facility] [address] [place] [address] Marissa Lobato, [facility] [address] [place] [address] Gait difficulty [R26.9] Complaints of leg weakness [R29.898] [facility] Comment on above: Gait difficulty [R26.9] Complaints of le g weakness [R29.898] Start: 11-06-2023 End: 11-06-2023 ambulatory 11/06/2023 11:00 AM EDT OT/PT/Speech Visit [facility] [address] [place] [address] O'Casper, Charleen, PT Gait difficulty [R26.9] Complaints of leg weakness [R29.898] [facility] Comment on above: Gait difficulty [R26.9] Complaints of le g weakness [R29.898] Start: 11-03-2023 End: 11-03-2023 ambulatory 11/03/2023 12:30 PM EDT OT/PT/Speech Visit [facility] [address] [place] [address] O'Casper, Charleen, PT Gait difficulty [R26.9] Complaints of leg weakness [R29.898] [facility] Comment on above: Gait difficulty [R26.9] Complaints of le g weakness [R29.898] Start: 10-29-2023 End: 10-29-2023 ambulatory 10/29/2023 1:30 PM EDT OT/PT/Speech Visit [facility] [address] [place] [address] O'Casper, Charleen, PT Gait difficulty [R26.9] Complaints of leg weakness [R29.898] [facility] Comment on above: Gait difficulty [R26.9] Complaints of le g weakness [R29.898] Start: 10-27-2023 End: 10-27-2023 ambulatory 10/27/2023 1:15 PM EDT OT/PT/Speech Visit [facility] [address] [place] [address] O'Casper, Charleen, PT Gait difficulty [R26.9] Complaints of leg weakness [R29.898] [facility] Comment on above: Gait difficulty [R26.9] Complaints of le g weakness [R29.898] Start: 10-26-2023 Influenza vaccination Influenza Vaccine (#1) [facility] Comment on above: Postponed from 12/27/2022 (Declined at t his time) Start: 10-22-2023 End: 10-22-2023 ambulatory 10/22/2023 12:45 PM EDT OT/PT/Speech Visit [facility] [address] [place] [address] O'Casper, Charleen, PT Gait difficulty [R26.9] Complaints of leg weakness [R29.898] [facility] Comment on above: Gait difficulty [R26.9] Complaints of le g weakness [R29.898] Start: 10-20-2023 End: 10-20-2023 ambulatory 10/20/2023 3:30 PM EDT OT/PT/Speech Visit [facility] [address] [place] [address] O'Casper, Charleen, PT Gait difficulty [R26.9] Complaints of leg weakness [R29.898] [facility] Comment on above: Gait difficulty [R26.9] Complaints of le g weakness [R29.898] Start: 10-19-2023 ANNUAL PCP TEAM CHRONIC DISEASE VISIT ANNUAL PCP TEAM CHRONIC DISEASE VISIT [facility] Start: 10-19-2023 BP CONTROLLED (<130/80) BP CONTROLLED (<130/80) [facility] in Start: 09-29-2023 End: 09-29-2023 ambulatory 09/29/2023 2:00 PM EDT OT/PT/Speech Visit [facility] [address] [place] [address] Charleen Rocha, PT Gait difficulty [R26.9] [facility] Comment on above: Gait difficulty [R26.9] Start: 09-26-2023 End: 09-26-2023 Patient encounter procedure Cat Scan Comment on above: History of abdominal surgery [Z98.890] Start: 09-23-2023 Hemoglobin A1c measurement HbA1C [facility] Start: 09-23-2023 End: 09-23-2023 Patient encounter procedure Cat Scan Comment on above: History of abdominal surgery [Z98.890] Start: 09-22-2023 Hemoglobin A1c measurement HbA1C [facility] Start: 09-22-2023 Hemoglobin A1c/Hemoglobin.total in Blood HbA1C [facility] Start: 09-10-2023 End: 09-10-2023 ambulatory [facility] Comment on above: lab 6 MO OV/LAB&ZOMETA T MARRY* Q6MO ZOMETA/LAB&OV E ARISTIDES/AUTH EXP 08/24/24* Start: 06-28-2023 BP CONTROLLED (<130/80) BP CONTROLLED (<130/80) [facility] in Start: 06-25-2023 End: 09-24-2023 25-hydroxyvitamin D3 [Mass/volume] in Serum or Plasma VITAMIN D 25 HYDROXY Lab Routine Vitamin D deficiency Expected: 06/25/2023 (Approximate), Expires: 09/24/2023 [facility] Work Phone: Comment on above: Expected: 06/25/2023 (Approximate), Expi res: 09/24/2023 Start: 06-25-2023 End: 09-24-2023 ALBUMIN/CREAT RATIO RND UR ALBUMIN/CREAT RATIO RND UR Lab Routine Type 2 diabetes mellitus with diabetic neuropathy, without long-term current use of insulin (HCC) Expected: 06/25/2023 (Approximate), Expires: 09/24/2023 [facility] Work Phone: Comment on above: Expected: 06/25/2023 (Approximate), Expi res: 09/24/2023 Start: 06-25-2023 End: 09-24-2023 CBC panel - Blood by Automated count CBC Lab Routine Primary hypertension Expected: 06/25/2023 (Approximate), Expires: 09/24/2023 [facility] Work Phone: Comment on above: Expected: 06/25/2023 (Approximate), Expi res: 09/24/2023 Start: 06-25-2023 End: 09-24-2023 Comprehensive metabolic 2000 panel - Serum or Plasma COMP METABOLIC PANEL Lab Routine Primary hypertension Type 2 diabetes mellitus with diabetic neuropathy, without long-term current use of insulin (HCC) Expected: 06/25/2023 (Approximate), Expires: 09/24/2023 [facility] Work Phone: Comment on above: Expected: 06/25/2023 (Approximate), Expi res: 09/24/2023 Start: 06-25-2023 End: 09-24-2023 Hemoglobin A1c in Blood HGB A1C Lab Routine Type 2 diabetes mellitus with diabetic neuropathy, without long-term current use of insulin (HCC) Expected: 06/25/2023 (Approximate), Expires: 09/24/2023 [facility] Work Phone: Comment on above: Expected: 06/25/2023 (Approximate), Expi res: 09/24/2023 Start: 06-25-2023 End: 09-24-2023 Lipid 1996 panel - Serum or Plasma LIPID PANEL BASIC Lab Routine Mixed hyperlipidemia Expected: 06/25/2023 (Approximate), Expires: 09/24/2023 [facility] Work Phone: Comment on above: Expected: 06/25/2023 (Approximate), Expi res: 09/24/2023 Start: 05-24-2023 BP CONTROLLED (<130/80) BP CONTROLLED (<130/80) [facility] Start: 05-21-2023 Hemoglobin A1c/Hemoglobin.total in Blood HBA1C [facility] Start: 04-28-2023 Advance Directive Discussion Advance Directive Discussion [facility] Start: 03-29-2023 Hepatitis B screening URINE ALBUMIN:CREATININE RATIO [facility] Start: 03-28-2023 BP CONTROLLED (<130/80) BP CONTROLLED (<130/80) [facility] Start: 03-28-2023 COVID-19 VACCINE (4 - Booster for Pfizer series) COVID-19 VACCINE (4 - Booster for Pfizer series) [facility] Comment on above: Postponed from 01/10/2022 (Declined at t his time) Start: 03-28-2023 COVID-19 VACCINE (4 - Pfizer series) COVID-19 VACCINE (4 - Pfizer series) [facility] Comment on above: Postponed from 01/10/2022 (Declined at t his time) Start: 03-28-2023 Hepatitis B surface antibody level LDL CHOLESTEROL [facility] Start: 03-28-2023 Pneumococcal Vaccine: 65+ (2 - PCV) Pneumococcal Vaccine: 65+ (2 - PCV) [facility] Comment on above: Postponed from 05/04/2015 (Declined at t his time) Start: 03-28-2023 PNEUMOCOCCAL: 65+ (2 - PCV) PNEUMOCOCCAL: 65+ (2 - PCV) [facility] Comment on above: Postponed from 05/04/2015 (Declined at t his time) Start: 02-26-2023 End: 03-31-2023 Mra head w/o & w/contrast material MRA BRAIN WO/W IVCON Radiology Routine Intracranial aneurysm Expected: 02/26/2023 (Approximate), Expires: 03/31/2023 [facility] Work Phone: Comment on above: Expected: 02/26/2023 (Approximate), Expi res: 03/31/2023 Start: 12-27-2022 Covid-19 Vaccine () Covid-19 Vaccine () [facility] Start: 12-27-2022 Influenza vaccination [facility] Start: 10-26-2022 End: 06-27-2023 25-hydroxyvitamin D3 [Mass/volume] in Serum or Plasma VITAMIN D 25 HYDROXY Lab Routine Vitamin D deficiency Expected: 10/26/2022 (Approximate), Expires: 06/27/2023 [facility] Work Phone: Comment on above: Expected: 10/26/2022 (Approximate), Expi res: 06/27/2023 Start: 10-26-2022 End: 06-27-2023 CBC W Auto Differential panel - Blood CBC + DIFF Lab Routine Type 2 diabetes mellitus with diabetic neuropathy, without long-term current use of insulin (HCC) Insomnia, unspecified type Expected: 10/26/2022 (Approximate), Expires: 06/27/2023 [facility] Work Phone: Comment on above: Expected: 10/26/2022 (Approximate), Expi res: 06/27/2023 Start: 10-26-2022 End: 06-27-2023 Comprehensive metabolic 2000 panel - Serum or Plasma COMP METABOLIC PANEL Lab Routine Type 2 diabetes mellitus with diabetic neuropathy, without long-term current use of insulin (HCC) Insomnia, unspecified type Expected: 10/26/2022 (Approximate), Expires: 06/27/2023 [facility] Work Phone: Comment on above: Expected: 10/26/2022 (Approximate), Expi res: 06/27/2023 Start: 10-26-2022 End: 06-27-2023 Hemoglobin A1c in Blood HGB A1C Lab Routine Type 2 diabetes mellitus with diabetic neuropathy, without long-term current use of insulin (HCC) Expected: 10/26/2022 (Approximate), Expires: 06/27/2023 [facility] Work Phone: Comment on above: Expected: 10/26/2022 (Approximate), Expi res: 06/27/2023 Start: 10-25-2022 Influenza vaccination INFLUENZA (#1) [facility] Comment on above: Postponed from 12/27/2021 (Declined at t his time) Start: 10-17-2022 ANNUAL PCP TEAM CHRONIC DISEASE VISIT ANNUAL PCP TEAM CHRONIC DISEASE VISIT [facility] Start: 10-17-2022 BP CONTROLLED (<130/80) BP CONTROLLED (<130/80) [facility] Start: 10-17-2022 Hepatitis B surface antibody level LDL CHOLESTEROL [facility] Start: 10-08-2022 BP CONTROLLED (<130/80) BP CONTROLLED (<130/80) [facility] Start: 09-26-2022 Hemoglobin A1c/Hemoglobin.total in Blood HBA1C [facility] Start: 06-05-2022 BP CONTROLLED (<130/80) BP CONTROLLED (<130/80) [facility] Start: 04-29-2022 SHINGRIX VACCINE (1 of 2) SHINGRIX VACCINE (1 of 2) [facility] Comment on above: Postponed from 01/16/1996 (Insurance Cov erage) Start: 04-29-2022 Urine microalbumin profile DTAP,TDAP,TD (1 - Tdap) [facility] Comment on above: Postponed from 1965 (Insurance Cov erage) Start: 04-28-2022 ADVANCE DIRECTIVE DISCUSSION ADVANCE DIRECTIVE DISCUSSION [facility] Start: 04-18-2022 Hemoglobin A1c/Hemoglobin.total in Blood HBA1C [facility] Start: 04-10-2022 End: 06-10-2022 25-hydroxyvitamin D3 [Mass/volume] in Serum or Plasma VITAMIN D 25 HYDROXY Lab Routine Vitamin D deficiency Expected: 04/10/2022 (Approximate), Expires: 06/10/2022 [facility] Work Phone: Comment on above: Expected: 04/10/2022 (Approximate), Expi res: 06/10/2022 Start: 04-10-2022 End: 06-10-2022 Hemoglobin A1c in Blood HGB A1C Lab Routine Type 2 diabetes mellitus with diabetic neuropathy, without long-term current use of insulin (HCC) Expected: 04/10/2022 (Approximate), Expires: 06/10/2022 [facility] Work Phone: Comment on above: Expected: 04/10/2022 (Approximate), Expi res: 06/10/2022 Start: 04-10-2022 End: 06-10-2022 Lipid 1996 panel - Serum or Plasma LIPID PANEL BASIC Lab Routine Mixed hyperlipidemia Expected: 04/10/2022 (Approximate), Expires: 06/10/2022 [facility] Work Phone: Comment on above: Expected: 04/10/2022 (Approximate), Expi res: 06/10/2022 Start: 04-10-2022 End: 06-10-2022 LIPID PANEL, NONFASTING LIPID PANEL, NONFASTING Lab Routine Mixed hyperlipidemia Expected: 04/10/2022 (Approximate), Expires: 06/10/2022 [facility] Work Phone: Comment on above: Expected: 04/10/2022 (Approximate), Expi res: 06/10/2022 Start: 03-29-2022 ANNUAL PCP TEAM CHRONIC DISEASE VISIT ANNUAL PCP TEAM CHRONIC DISEASE VISIT [facility] Start: 03-28-2022 End: 05-28-2022 25-hydroxyvitamin D3 [Mass/volume] in Serum or Plasma [facility] Work Phone: Comment on above: Expected: 03/28/2022, Expires: 3 Start: 03-28-2022 End: 05-28-2022 ALBUMIN/CREAT RATIO RND UR ALBUMIN/CREAT RATIO RND UR Lab Routine Type 2 diabetes mellitus with diabetic neuropathy, without long-term current use of insulin (HCC) Expected: 03/28/2022, Expires: 05/28/2022 [facility] Work Phone: Comment on above: Expected: 03/28/2022, Expires: 3 Start: 03-28-2022 End: 05-28-2022 CBC W Auto Differential panel - Blood [facility] Work Phone: Comment on above: Expected: 03/28/2022, Expires: 3 Start: 03-28-2022 End: 05-28-2022 Comprehensive metabolic 2000 panel - Serum or Plasma [facility] Work Phone: Comment on above: Expected: 03/28/2022, Expires: 3 Start: 03-28-2022 End: 05-28-2022 Hemoglobin A1c in Blood [facility] Work Phone: Comment on above: Expected: 03/28/2022, Expires: 3 Start: 03-28-2022 End: 05-28-2022 LIPID PANEL, NONFASTING [facility] Work Phone: Comment on above: Expected: 03/28/2022, Expires: 3 Start: 03-18-2022 COVID-19 VACCINE (4 - Booster for Pfizer series) COVID-19 VACCINE (4 - Booster for Pfizer series) [facility] Start: 02-15-2022 COVID-19 VACCINE (4 - Booster for Pfizer series) COVID-19 VACCINE (4 - Booster for Pfizer series) [facility] Start: 02-07-2022 COVID-19 VACCINE (4 - Booster for Pfizer series) COVID-19 VACCINE (4 - Booster for Pfizer series) [facility] Start: 01-25-2022 Hepatitis B screening URINE ALBUMIN:CREATININE RATIO [facility] Start: 01-17-2022 End: 03-19-2022 Basic metabolic 2000 panel - Serum or Plasma BASIC METABOLIC PNL Lab Routine Cerebral aneurysm Expected: 01/17/2022 (Approximate), Expires: 03/19/2022 [facility] Work Phone: Comment on above: Expected: 01/17/2022 (Approximate), Expi res: 03/19/2022 Start: 01-17-2022 End: 03-19-2022 CBC panel - Blood by Automated count CBC Lab Routine Cerebral aneurysm Expected: 01/17/2022 (Approximate), Expires: 03/19/2022 [facility] Work Phone: Comment on above: Expected: 01/17/2022 (Approximate), Expi res: 03/19/2022 Start: 01-10-2022 COVID-19 VACCINE (4 - Booster for Pfizer series) COVID-19 VACCINE (4 - Booster for Pfizer series) [facility] Start: 12-27-2021 Influenza vaccination INFLUENZA (#1) [facility] Start: 08-30-2021 Bacteria identified in Urine by Culture Urine Culture [facility] Work Phone: Start: 07-08-2021 Hemoglobin A1c/Hemoglobin.total in Blood HBA1C [facility] Start: 04-28-2021 ADVANCE DIRECTIVE DISCUSSION ADVANCE DIRECTIVE DISCUSSION [facility] Start: 04-06-2021 COVID-19 VACCINE (3 - Pfizer risk series) COVID-19 VACCINE (3 - Pfizer risk series) [facility] Start: 2021 RSV Vaccine (1 - 1-dose 75+ series) RSV Vaccine (1 - 1-dose 75+ series) [facility] Start: 08-18-2020 Colonoscopy COLONOSCOPY [facility] Start: 08-18-2020 COLORECTAL CANCER SCREENING COLORECTAL CANCER SCREENING [facility] Start: 08-13-2020 Colonoscopy COLONOSCOPY [facility] Start: 08-13-2020 COLORECTAL CANCER SCREENING COLORECTAL CANCER SCREENING [facility] Start: 11-12-2019 ANNUAL PCP TEAM CHRONIC DISEASE VISIT ANNUAL PCP TEAM CHRONIC DISEASE VISIT [facility] Start: 11-06-2019 Hepatitis B surface antibody level LDL CHOLESTEROL [facility] Start: 05-07-2018 FECAL OCCULT BLOOD FECAL OCCULT BLOOD [facility] Start: 05-04-2015 Pneumococcal Vaccine: 50+ (2 of 2 - PCV) Pneumococcal Vaccine: 50+ (2 of 2 - PCV) [facility] Start: 05-04-2015 Pneumococcal Vaccine: 65+ (2 - PCV) Pneumococcal Vaccine: 65+ (2 - PCV) [facility] Start: 05-04-2015 Pneumococcal Vaccine: 65+ (2 of 2 - PCV) Pneumococcal Vaccine: 65+ (2 of 2 - PCV) [facility] Start: 05-04-2015 PNEUMOCOCCAL: 65+ (2 - PCV) PNEUMOCOCCAL: 65+ (2 - PCV) [facility] Start: 2006 Hepatitis B Vaccine (1 of 3 - Risk 3-dose series) Hepatitis B Vaccine (1 of 3 - Risk 3-dose series) [facility] Start: 2006 RSV Vaccine (1 - 1-dose 60+ series) RSV Vaccine (1 - 1-dose 60+ series) [facility] Start: 01-16-1996 SHINGRIX VACCINE (1 of 2) SHINGRIX VACCINE (1 of 2) [facility] Start: 1991 COLOGUARD (FIT-DNA) COLOGUARD (FIT-DNA) [facility] Start: [address] COLONOGRAPHY [facility] Start: 1991 SIGMOIDOSCOPY SIGMOIDOSCOPY [facility] Start: 1965 SHINGRIX VACCINE (1 of 2) SHINGRIX VACCINE (1 of 2) [facility] Start: 1965 Urine microalbumin profile [facility] Start: 01-16-1964 BP CONTROLLED (<130/80) BP CONTROLLED (<130/80) [facility] Start: 01-16-1956 3 comp foot exam completed DIABETIC FOOT EXAM [facility] Start: 01-16-1956 Diabetic foot examination Diabetic Foot Exam [facility] Start: 01-16-1956 Glaucoma screening Dilated Retinal Exam [facility] Start: 01-16-1956 Hepatitis C antibody, confirmatory test DILATED RETINAL EXAM [facility] Bacteria identified in Urine by Culture BACTERIAL CULTURE, URINE Microbiology Routine Acute UTI Ordered: 08/09/2024 [facility] Work Phone: Comment on above: Ordered: 08/09/2024 End: 10-07-2024 CT Abdomen and Pelvis WO contrast CT ABD/PEL WO IVCON Radiology Routine History of abdominal surgery Abdominal pain, chronic, generalized 1 Occurrences starting 09/08/2023 until 10/07/2024 [facility] Comment on above: 1 Occurrences starting 09/08/2023 until 10/07/2024 CT Abdomen and Pelvi s WO contrast CT ABD/PEL WO IVCON Radiology Routine History of abdominal surgery Abdominal pain, chronic, generalized 09/26/2023 11:51 AM EDT [facility] Work Phone: End: 07-23-2025 CTA Head Arteries W contrast IV CTA HEAD W IVCON Radiology Routine Nonruptured cerebral aneurysm 1 Occurrences starting 06/23/2024 until 07/23/2025 [facility] Work Phone: Comment on above: 1 Occurrences starting 06/23/2024 until 07/23/2025 End: 01-30-2025 DBT Breast - bilateral screening WILLIE SCREENING W AVNI Radiology Routine Screening mammogram for breast cancer 1 Occurrences starting 01/01/2024 until 01/30/2025 [facility] Work Phone: Comment on above: 1 Occurrences starting 01/01/2024 until 01/30/2025 End: 07-21-2025 DBT Breast - bilateral screening WILLIE SCREENING W AVNI Radiology Routine Encounter for screening mammogram for breast cancer 1 Occurrences starting 06/21/2024 until 07/21/2025 [facility] Comment on above: 1 Occurrences starting 06/21/2024 until 07/21/2025 End: 12-18-2024 Echocardiography ECHO Cardiology Routine Hypertension Syncope, unspecified syncope type 1 Occurrences starting 12/19/2023 until 12/18/2024 [facility] Work Phone: Comment on above: 1 Occurrences starting 12/19/2023 until 12/18/2024 IMMUNOFIXATION SCREE N, SERUM IMMUNOFIXATION SCREEN, SERUM Lab Routine DM type 2 with diabetic peripheral neuropathy (HCC) 08/17/2024 11:41 AM EDT [facility] IR CEREBRAL ARCH & T HREE VESSEL IR CEREBRAL ARCH & THREE VESSEL Radiology Routine Cerebral aneurysm Ordered: 12/03/2021 [facility] Work Phone: Comment on above: Ordered: 12/03/2021 End: 01-23-2024 WILLIE DIAGNOSTIC BILATERAL WILLIE DIAGNOSTIC BILATERAL Radiology Routine Bilateral fibrocystic breast changes Personal history of breast cancer S/P bilateral breast lumpectomy Mass of lower outer quadrant of right breast 1 Occurrences starting 12/24/2022 until 01/23/2024 [facility] Work Phone: Comment on above: 1 Occurrences starting 12/24/2022 until 01/23/2024 End: 01-22-2024 WILLIE SCREENING WILLIE SCREENING Radiology Routine Screening breast examination 1 Occurrences starting 12/23/2022 until 01/22/2024 [facility] Work Phone: Comment on above: 1 Occurrences starting 12/23/2022 until 01/22/2024 Methylmalonate [Moles/volume] in Serum or Plasma METHYLMALONIC ACID Lab Routine DM type 2 with diabetic peripheral neuropathy (HCC) 08/17/2024 11:41 AM EDT [facility] Patient Education [facility] Work Phone: Patient referral [facility] Work Phone: PFIZER-BIONTachvr COVI D-19 VACCINE ( SEASON) AGE 12+ YR PFIZER-BIONTECH COVID-19 VACCINE ( SEASON) AGE 12+ YR Immunization/Injection Routine Encounter for immunization 1 Occurrences starting 09/08/2023 [facility] Comment on above: 1 Occurrences starting 09/08/2023 Pneumococcal vaccination PNEUMOC OCCAL VACCINE, 20 VALENT (PREVNAR 20) Immunization/Injection Routine Encounter for immunization 1 Occurrences starting 09/08/2023 [facility] Work Phone: Comment on above: 1 Occurrences starting 09/08/2023 Pyridoxine [Mass/vol ume] in Serum or Plasma VITAMIN B6/PYRIDOXIN Lab Routine DM type 2 with diabetic peripheral neuropathy (HCC) 08/17/2024 11:41 AM EDT [facility] Tdap vaccine 7 yrs/> im TDAP VAC CINE, AGE 7+ YR (ADACEL, BOOSTRIX) Immunization/Injection Routine Encounter for immunization 1 Occurrences starting 10/18/2022 [facility] Work Phone: Comment on above: 1 Occurrences starting 10/18/2022 UA DIP, URINE (POC) UA DIP, URIN E (POC) Lab Routine Dementia with other behavioral disturbance, unspecified dementia severity, unspecified dementia type (HCC) Ordered: 09/07/2024 [facility] Work Phone: Comment on above: Ordered: 09/07/2024 End: 01-23-2024 US BREAST LTD RIGHT US BREAST LTD RIGHT Radiology Routine Bilateral fibrocystic breast changes Personal history of breast cancer S/P bilateral breast lumpectomy Mass of lower outer quadrant of right breast 1 Occurrences starting 12/24/2022 until 01/23/2024 [facility] Work Phone: Comment on above: 1 Occurrences starting 12/24/2022 until 01/23/2024 End: 03-27-2025 XR Hand - bilateral PA and Lateral and Oblique XR HAND GENERAL 3V PA/LAT/OBL BILATERAL Radiology Routine Arthritis of hand 1 Occurrences starting 02/26/2024 until 03/27/2025 [facility] Work Phone: Comment on above: 1 Occurrences starting 02/26/2024 until 03/27/2025 XR Hand - bilateral PA and Lateral and Oblique XR HAND GENERAL 3V PA/LAT/OBL BILATERAL Radiology Routine Arthritis of hand 02/26/2024 1:51 PM EDT [facility] Immunizations Immunization Date Immunization Notes Care Provider [facility] 11-15-2021 COVID-19 original vaccine, age 12+ yr, monovalent (PFIZER-BIONTECH - BALDERAS TOP) Ruddy Cooper MD Work Phone: [facility] 03-09-2021 COVID-19 vaccine, ag e 12+ yr (PFIZER-BIONTECH - PURPLE TOP) Candelario Douglas MD Work Phone: [facility] Work Phone: 02-13-2021 Covid (Pfizer) [facility] 01-30-2021 influenza, high-dose , quadrivalent vaccine (FLUZONE HIGH DOSE QUADRIVALENT) Candelario Douglas MD Work Phone: [facility] Work Phone: 01-30-2021 influenza virus vacc ine, unspecified formulation Ruddy Cooper MD Work Phone: [facility] 01-13-2019 influenza, high dose seasonal, preservative-free Candelario Douglas MD Work Phone: [facility] Work Phone: 02-12-2018 Seasonal trivalent influenza vaccine, adjuvanted, preservative free Candelario Douglas MD Work Phone: [facility] Work Phone: 05-04-2014 pneumococcal polysaccharide vaccine, 23 valent Ruddy Cooper MD Work Phone: [facility] Work Phone: 02-04-2014 influenza, seasonal, injectable, preservative free Candelario Douglas MD Work Phone: [facility] Work Phone: Payers Date Payer Category Payer Self-pay [id number] 2019 Medicare HUMANA MEDICARE HUMANA MEDICARE PPO [id number] 2019-Present [phone] [address] [place] [address] PPO [id number] 2019 Medicare HUMANA MEDICARE HUMANA MEDICARE PPO [id number] 2019-Present [phone] [address] [place] [address] PPO [id number] 2019 Medicare (Managed Care) HUMANA M EDICARE [id number] 2019 Medicare [id number] Unknown [id number] Unknown [id number] Unknown [id number] Unknown [id number] Unknown [id number] Unknown [id number] Unknown [id number] Unknown [id number] Unknown [id number] Social History Date Type Detail Facility Start: 11-04-2013 End: 03-28-2022 Tobacco smoking status NHIS Never smoked tobacco [facility] Start: 06-11-2021 End: 09-14-2024 Alcohol intake Current non-drinker of alcohol (finding) [facility] Start: 1945 Sex Assigned At Not on file [facility] Start: 04-06-2020 End: 03-28-2022 Exposure to SARS-CoV-2 (event) Not sure [facility] Start: 08-29-2021 Tobacco smoking stat us ARIS Unknown if ever smoked [facility] Work Phone: Start: 05-27-2018 None [facility] Start: 05-27-2018 Alone [facility] Start: 05-14-2019 Non-smoker [facility] Start: 1945 Sex Assigned At Female [facility] Start: 11-04-2013 End: 03-28-2022 Tobacco use and exposure Smokeless tobacco non-user [facility] Start: 10-03-2022 End: 10-18-2022 History of Social function [facility] Start: 10-03-2022 End: 10-18-2022 Tobacco use panel [facility] Adult Depression Screening Assessment 0 [facility] Medical Equipment Procedure Code Equipment Code Equipment Origin al Text Equipment Identifier Dates Osteotomy, calcaneus 5.0mm Compression FT Screw FDA Start: 05-14-2019 Osteotomy, calcaneus 5.0mm Compression FT Screw FDA Start: 05-14-2019 Osteotomy, calcaneus ANCHOR,FIBERTAK DX FDA Start: 05-14-2019 Osteotomy, calcaneus ANCHOR,FIBERTAK DX FDA Start: 05-14-2019 Osteotomy, calcaneus FDL Implant System FDA Start: 05-14-2019 Osteotomy, calcaneus INTERNALBRACE 2.0 FDA Start: 05-14-2019 Osteotomy, calcaneus 5.0mm Compression FT Screw FDA Start: 05-14-2019 Osteotomy, calcaneus 5.0mm Compression FT Screw FDA Start: 05-14-2019 Osteotomy, calcaneus ANCHOR,FIBERTAK DX FDA Start: 05-14-2019 Osteotomy, calcaneus ANCHOR,FIBERTAK DX FDA Start: 05-14-2019 Osteotomy, calcaneus FDL Implant System FDA Start: 05-14-2019 Osteotomy, calcaneus INTERNALBRACE 2.0 FDA Start: 05-14-2019 ORIF, ankle 3MM LOW PROFILE SCREW FDA St art: 05-29-2018 ORIF, ankle 12mm Low Profile Screw 3.5mm FDA Start: 05-29-2018 ORIF, ankle 16mm Variable An gle Locking Sc FDA Start: 05-29-2018 ORIF, ankle Low Profile Scre w 3.5mm FDA Start: 05-29-2018 ORIF, ankle Low Profile Scre w 3.5mm 56mm FDA Start: 05-29-2018 ORIF, ankle Right Fibula Loc kamini Plate FDA Start: 05-29-2018 ORIF, ankle SWIVELOCK,4.75 D OUBLE LOCK FDA Start: 05-29-2018 ORIF, ankle SWIVELOCK,4.75 D OUBLE LOCK FDA Start: 05-29-2018 ORIF, ankle 3.5mm Low Profil e Screw 12mm FDA Start: 05-29-2018 ORIF, ankle 10mm Variable lo cking screw FDA Start: 05-29-2018 ORIF, ankle 10mm Variable lo cking screw FDA Start: 05-29-2018 ORIF, ankle 10mm Variable lo cking screw FDA Start: 05-29-2018 ORIF, ankle 12mm Low Profile Screw 3.5mm FDA Start: 05-29-2018 ORIF, ankle 12mm Low Profile Screw 3.5mm FDA Start: 05-29-2018 ORIF, ankle 12mm Low Profile Screw 3.5mm FDA Start: 05-29-2018 ORIF, ankle 12mm Low Profile Screw 3.5mm FDA Start: 05-29-2018 ORIF, ankle 10mm Variable lo cking screw FDA Start: 05-29-2018 ORIF, ankle 3.5mm Low Profil e Screw 12mm FDA Start: 05-29-2018 ORIF, ankle 3MM LOW PROFILE SCREW FDA St art: 05-29-2018 ORIF, ankle Low Profile Scre w 3.5mm FDA Start: 05-29-2018 ORIF, ankle Low Profile Scre w 3.5mm 56mm FDA Start: 05-29-2018 ORIF, ankle Right Fibula Loc kamini Plate FDA Start: 05-29-2018 ORIF, ankle SWIVELOCK,4.75 D OUBLE LOCK FDA Start: 05-29-2018 ORIF, ankle SWIVELOCK,4.75 D OUBLE LOCK FDA Start: 05-29-2018 ORIF, ankle 10mm Variable lo cking screw FDA Start: 05-29-2018 ORIF, ankle 10mm Variable lo cking screw FDA Start: 05-29-2018 ORIF, ankle 12mm Low Profile Screw 3.5mm FDA Start: 05-29-2018 ORIF, ankle 12mm Low Profile Screw 3.5mm FDA Start: 05-29-2018 ORIF, ankle 12mm Low Profile Screw 3.5mm FDA Start: 05-29-2018 ORIF, ankle 12mm Low Profile Screw 3.5mm FDA Start: 05-29-2018 ORIF, ankle 12mm Low Profile Screw 3.5mm FDA Start: 05-29-2018 ORIF, ankle 16mm Variable An gle Locking Sc FDA Start: 05-29-2018 Lithotripsy, ESWL STENT,URETERAL PIGTAIL [id number] FDA Start: 08-31-2021 Web Sl 9mm X 4mm [id number] Start: 01-22-2021 Insert Triathlon 3 11mm Tibial Bearing Cruciate Retain Sterile Knee [id number] Start: 08-07-2020 Component Tritan ium 29mm Metal 9mm Patellar Asymmetric Knee - [id number] Start: 08-07-2020 Component Triath cedric 2 Pa Femoral Cruciate Retain Bead Knee Right - [id number] Start: 08-07-2020 Baseplate Triath fatimah 3 Tritanium 44mm 67mm Tibial Sterile Latex Free - [id number] Start: 08-07-2020 BRAIN ANEURYSM C OILS VARIOUS SIZES GDC 360 FDA Start: 06-20-2004 BRAIN ANEURYSM C OILS VARIOUS SIZES GDC 360 FDA Start: 06-20-2004 BRAIN ANEURYSM C OILS VARIOUS SIZES GDC 360 FDA Start: 06-20-2004 BRAIN ANEURYSM C OILS VARIOUS SIZES GDC 360 FDA Start: 06-20-2004 BRAIN ANEURYSM C OILS VARIOUS SIZES GDC 360 FDA Start: 06-20-2004 YASARGIL-AESCULA P PHYNOX ANEURYSM CLIP X2 FDA Start: 08-01-2005 YASARGIL-AESCULA P PHYNOX ANEURYSM CLIP X2 FDA Start: 08-01-2005 BRAIN ANEURYSM C OILS VARIOUS SIZES GDC 360 FDA Start: 06-20-2004 BRAIN ANEURYSM C OILS VARIOUS SIZES GDC 360 FDA Start: 06-20-2004 BRAIN ANEURYSM C OILS VARIOUS SIZES GDC 360 FDA Start: 06-20-2004 BRAIN ANEURYSM C OILS VARIOUS SIZES GDC 360 FDA Start: 06-20-2004 BRAIN ANEURYSM C OILS VARIOUS SIZES GDC 360 FDA Start: 06-20-2004 YASARGIL-AESCULA P PHYNOX ANEURYSM CLIP X2 FDA Start: 08-01-2005 YASARGIL-AESCULA P PHYNOX ANEURYSM CLIP X2 FDA Start: 08-01-2005 Goals Date Patient Goal Desired Activity /State Functional Status Date Assessment Result Facility 08-30-2024 Functional status Chair [facility] Work Phone: 08-31-2021 Functional status Ambulates;Bath room Privilege [facility] Work Phone: 02-02-2021 Are you deaf, or do you have serious difficulty hearing No 02/02/2021 11:09 AM Corinne La, LAURITA No [facility] 02-02-2021 Are you blind, or do you have serious difficulty seeing, even when wearing glasses No 02/02/2021 11:09 AM Corinne La RN No [facility] 02-02-2021 Do you have serious difficulty walking or climbing stairs Yes 02/02/2021 11:09 AM Corinne La, LAURITA Yes [facility] 02-02-2021 Do you have difficul ty dressing or bathing Yes 02/02/2021 11:09 AM Corinne La, LAURITA Yes [facility] 02-02-2021 Because of a physica l, mental, or emotional condition, do you have difficulty doing errands alone such as visiting a physician's office or shopping Yes 02/02/2021 11:09 AM KAVYAT Corinne Del Castillo, LAURITA Yes [facility] Mental Status Date Assessment Result Facility 09-08-2024 Cognitive function Voice/Name [facility] Work Phone: 08-30-2024 Cognitive function Voice/Name [facility] Work Phone: 08-31-2021 Cognitive function Voice/Name [facility] Work Phone: 02-02-2021 Because of a physica l, mental, or emotional condition, do you have serious difficulty concentrating, remembering, or making decisions Yes 02/02/2021 11:09 AM EDT Corinne Del Castillo RN Yes [facility] Clinical Notes 05-06-2020 to 10-05-2024 Telephone Encounter - Brigette Casanova MA - 10/05/2024 8:35 AM EDTTelephone Encounter - Brigette Casanova MA - 10/05/2024 8:35 AM Mary Ann Reaves MA - 09/22/2024 2:30 PM EDT Note Date & Type Note Facility 10-05-2024 Telephone encounter Note Form atting of this note might be different from the original. Called daughter and went over SW note on 09/08 where she gave info for CC assessment. Advised if info taken misplaced can call [facility] and they can provide information on that since we do not order these Brigette Casanova MA [facility] 10-05-2024 Miscellaneous Notes Formattin g of this note might be different from the original. Called daughter and went over SW note on 09/08 where she gave info for CC assessment. Advised if info taken misplaced can call [facility] and they can provide information on that since we do not order these Brigette Casanova MA documented in this encounter [facility] 09-22-2024 History of Presen t illness Narrative POPULATION HEALTH NAVIGATION OUTREACH Action/FYI Patient calling in asking to speak with Bradford Love DESIRAE or for her cell number to call her directly. Advised patient I do not have direct contact information for MANUAL LATHE OPERATOR but can get a message over to her. Asked patient if there was something I could help with. Patient with questions about recent medication dose change. States received new Rx at last OV for Losartan 25 mg. Asking if she is supposed to take both the 50 mg and 25 mg together or just one of them. Upon chart review MANUAL LATHE OPERATOR decreased Losartan as BP readings have been running low. Advised patient of above. No further questions or concerns at this time Reason for Outreach Healthy at Home Care Gaps due: N/A Call received from: Patient Patient Contacted: Spoke to patient/parent/or legal guardian Patient identified by name and date of Yes [facility] at Home actions taken: No action required Navigation Signature: Mary Ann Gustafson MA September 22, 2024 2:30 PM documented in this encounter [facility] 09-09-2024 Discharge summary [facility] 09-08-2024 Discharge summary Note Date/Time September 09, 2024 12:48am [facility] Medical Records Department [address] [place] [id number] Emergency Department Summary 09/08/24 MR#: [id number] Acct: [id number] Name: JUDI KRAUSE Rep #:[id number] : 1945 79 From: Yossi Heredia MD PCP: Dr. Ruddy Cooper MD Status:RE G ER Location: ED HPI History of Present Illness Chief Complaint: Dizziness Informant: patient Onset/Context/Timing Onset: Today Context: Gradual Onset Current Severity: Mild Maximum Severity: Mild Narrative Narrative: 79-year-old female history of intracranial bleed. Diabetes. Prior aneurysm that has been ablated. Patient a recent admission due to falls and failure to thrive. She lives alone at home. Said she felt dizzy today worse with her headmovement. She does have a history of vertigo. Denies any headache or recent head trauma. Recent CT was negative. Prior similar symptoms: Yes Recent Illness/Hospitalization: Yes PFSH PFS Medical History Orthostatic hypotension Hoarseness History of stress test Anxiety Depression Migraines Normochromic normocytic anemia Diabetes mellitus type 2 in nonobese Hyponatremia Obstructive hydrocephalus IVH (intraventricular hemorrhage) Infiltrating ductal carcinoma of left breast HTN (hypertension) Brain aneurysm SAH (subarachnoid hemorrhage) Walking difficulty due to ankle and foot Hammer toe of right foot Tibialis posterior tendinopathy Posterior tibial tendinitis of right lower extremity Brain aneurysm GERD (gastroesophageal reflux disease) Osteoarthritis HLD (hyperlipidemia) Anxiety and depression HTN (hypertension) Home Medications ?Medication ?Instructions ?Recorded ?Last Taken ?Type aspirin 81 mg tablet 81 mg PO DAILY [facility] 02/02/21 Unknown History letrozole 2.5 mg tablet 2.5 mg PO DAILY 08/25/24 Unk nown History losartan 50 mg tablet 50 mg PO DAILY 08/25/24 Unkn own History metformin 500 mg tablet 500 mg PO DAILY diabetes joy litus 08/25/24 Unknown History nortriptyline 50 mg capsule 100 - 150 mg PO QHS Unknown History quetiapine 25 mg tablet 25 mg PO QHS #30 tabs Unknown Rx meclizine 25 mg chewable tablet 25 mg PO TID PRN dizzi ness #10 tabs 09/09/24 Unknown Rx (Antivert) Allergy/AdvReac Type Severity Reaction Status Date / Time codeine AdvReac Nausea Verified 09/08/24 22:11 fluoxetine HCl (From Prozac) AdvReac shivers Verified 09/08/24 22:11 morphine AdvReac Nausea Verified 09/08/24 22:11 Family History Mother Breast cancer Hypertension Alzheimers disease Aunt Breast cancer Father CAD (coronary artery disease) Sister Alzheimers disease Other Bleeding disorder Surgical History History of appendectomy S/P coil embolization of cerebral aneurysm History of total knee arthroplasty Hx of craniotomy Cataract extraction status H/O laser iridotomy History of hysterectomy S/P breast lumpectomy S/P coil embolization of cerebral aneurysm Social History household members: none Smoking Status: Never smoker alcohol intake: never substance use type: does not use ROS ROS ED ROS Narrative Denies recent illness and some mild nausea tonight. No vomiting or diarrhea. No melena. No headache or chest pain. No abdominal pain. Constitutional Constitutional ED: Denies chills or fever(s) Eyes Eyes: Denies blurry vision ENT ENT ED: Denies ear pain Cardiovascular Cardiovascular: Denies chest pain Respiratory/Chest Respiratory/Chest: Denies cough Gastrointestinal Gastrointestinal: Reports nausea; Denies abdominal pain, diarrhea or vomiting Genitourinary Genitourinary ED: Denies dysuria or hematuria Musculoskeletal Musculoskeletal: Denies arthralgias Integumentary Denies abscess Neurologic Neurologic: Denies headache(s) Psychiatric Psychiatric: Denies anxiety Endocrine Endocrinology: Denies cold intolerance Hematologic/Lymphatic Hematologic/Lymphatic: Reports none Allergic/Immunologic Allergic/Immunologic ED: Denies mouth swelling, tongue swelling or urticaria EXAM Physical Exam Narrative Exam Narrative: 79-year-old female sitting upright in bed. Vital signs are stable afebrile. She does not look septic toxic. No acute distress. Currently no family or friends present in the room. From a prior dictation I believe her daughters live out of town. H EENT exam pupils round react to light. Motions are intact. No facial droop. Normal speech. No trauma to her face or scalp. Nontender. No bruising. TMs are unremarkable canals are not obstructed with wax. Moist mucous membranes. Neck nontender. No lymphadenopathy. Lungs clear to auscultation bilaterally. Heart regular rhythm rate about 85. Normal sinus rhythm on the monitor. Chest wall ribs nontender. Abdomen soft nontender. Back nontender. Moving all 4 extremities. 5 out of 5 lead loader strength. Dorsi plantarflexion intact. No drift. Neurologic exam she is awake alert. NIH is 0. Hallpike shows mild increase in symptoms with movement of her head. But is not impressive. Const Vital Signs: 09/08/24 22:11 09/09/24 00:15 Temperature 97.9 F Temperature Source Oral Pulse Rate 86 Pulse Rate [Lying] 75 Pulse Rate [Sitting (for 1 minute prior to obtaining)] 76 Pulse Rate [Standing (for 1 minute prior to obtaining)] 89 Respiratory Rate 22 H Blood Pressure 120/79 Blood Pressure [Lying] 137/74 H Blood Pressure [Sitting (for 1 minute prior to obtaining)] 139/80 H Blood Pressure [Standing (for 1 minute prior to obtaining)] 117/70 Blood Pressure Mean 92 Blood Pressure Mean [Lying] 95 Blood Pressure Mean [Sitting (for 1 minute prior to obtaining)] 99 Blood Pressure Mean [Standing (for 1 minute prior to obtaining)] 85 Pulse Ox 99 Oxygen Delivery Method Room Air Positive well nourished and well developed; Negative for cachectic, contracturesor unkempt General Appearance ED: well developed and NAD; Negative for unkempt, cachectic, contractures or pallor Nutritional Appearance: Negative for cachectic HEENT Reports moist mucous membranes Eyes PERRL and EOMs intact bilaterally Neck no lymphadenopathy, supple and no JVD Chest Wall inspection of chest normal and palpation of chest normal Resp normal respiratory effort and clear to auscultation bilaterally Cardio regular rate, regular rhythm, S1 normal heart sound, S2 normal heart sound and no murmurs GI normal to inspection, nondistended, normoactive bowel sounds, non-tender, non-distended and no masses Palpation: soft; Negative for tender, guarding or rebound tenderness present Back/Spine no CVA tenderness General Back: Negative for CVA tenderness Cervical Spine: Negative for cervical spine tenderness Thoracic Spine / Upper Back: Negative for thoracic spinal tenderness or paraspinal muscle tenderness Lumbar Spine / Lower Back: Negative for lumbar spinal tenderness Extremity normal to inspection General Extremety ED: Negative for edema or tenderness General Extremity: Negative for edema Neuro oriented x3 and CN's II-XII intact bilaterally Sensorium / Orientation: alert; Negative for orientation impaired or lethargic Motor Exam: strength 5/5 throughout Psych mental status grossly normal Appearance: Negative for unkempt Mood & Affect: Negative for depressed, anxious or tearful Skin no wounds General Skin Exam: Negative for jaundice or pallor Lesions: No lesion noted Rashes: No rashes noted Trauma: Negative for abrasion MDM MDM MDM Narrative Medical decision making narrative: 79-year-old female from home with dizziness worse with head movement. May or may not be vertigo. Is not impressive exam at this time. Her neurologic exam is normal. I do not think she needs brain imaging she just had that done. Thisdoes not impress me as a stroke. Screening labs to be obtained. She will be ambulated. She be given a dose of Antivert. Repeat exam at 12:38 AM patient doing well. Clinically feels well. Says her dizziness resolved. Exam normal. Repeat neurologic exam normal and unchanged. Nurses told me patient did ambulate and ambulated well in the hallway. She feels comfortable being discharged home. I will send a prescription in for Antivert for her. She is comfortable being discharged home. History & Record Review Discussion w/independent historian: Patient Additional record(s) reviewed:: Prior inpatient record, Prior outpatient record,Prior ED visit and Prior labs Lab Data Attestation: I reviewed the patient's lab results. Lab results narrative: CBC normal. White count 6. H&H 13 and 39. Platelets 347. Electrolytes show gap 13. BUN 20 creatinine 0.8. Glucose 119. Labs: Laboratory Results - last 24 hr 09/08/24 23:20 WBC 6.4 RBC 4.29 Hgb 13.0 Hct 39.3 MCV 91.6 MCH 30.3 MCHC 33.1 RDW Std Deviation 41.1 RDW Coeff of Meño 12.4 Plt Count 347 MPV 8.8 Immature Gran % (Auto) 0.300 Neut % (Auto) 56.0 Lymph % (Auto) 29.8 Thayer % (Auto) 7.8 Eos % (Auto) 5.0 Baso % (Auto) 1.1 H Absolute Neuts (auto) 3.6 Absolute Lymphs (auto) 1.90 Nucleated RBC % 0 Sodium 138 Potassium 4.6 Chloride 105 Carbon Dioxide 20.0 L Anion Gap 13 BUN 20 H Creatinine 0.88 Estim Creat Clear Calc 48.64 L Est GFR (MDRD) Non-Af 67 BUN/Creatinine Ratio 22.1 H Glucose 119 H Calcium 9.4 Discharge Plan Triage Chief Complaint: Dizziness ED Provider: Yossi Heredia Dx/Rx/DC Orders Clinical Impression: Dizziness, Vertigo Instructions: ED Dizziness, Uncertain Cause, ED Vertigo, Unspecified Prescriptions: New meclizine [Antivert] 25 mg tablet,chewable 25 mg PO TID PRN (Reason: dizziness) Qty: 10 0RF Rx Instructions: Use if having dizziness. No Action aspirin 81 mg Tablet 81 mg PO DAILY losartan 50 mg tablet 50 mg PO DAILY metformin 500 mg tablet 500 mg PO DAILY letrozole 2.5 mg tablet 2.5 mg PO DAILY nortriptyline 50 mg capsule 100 - 150 mg PO QHS quetiapine 25 mg Tablet 25 mg PO QHS Qty: 30 0RF Primary Care Provider: Ruddy Cooper Referrals: Ruddy Cooper MD [Primary Care Provider] - 3-5 Days if not improving Activity Restrictions/Additional Instructions: Follow-up with your doctor to ensure you are improving. Antivert for dizziness. Return if feeling worse. Print Language: Finnish Disposition Disposition: Home, Self Care What to do if you have Problems For any increased pain, shortness of breath, bleeding, nausea or vomiting, chestpain, or any unexpected problems, contact your Primary Care Provider. Call [facility] ([phone]) or report to the closest Emergency Room. Call 911 if necessary. 09/09/24 0048 <Electronically signed by Yossi Heredia MD> Cosigner Signature (if applicable): CC: Dr. Ruddy Cooper MD ~ Signed [facility] Work Phone: [phone] Telephone encounter Note* Telephone Encounter - NehemiasglendySalome streeter, [employer] TREATER - 09/08/2024 11:03 AM EDT Sw left patient message to call Sw back. Sw also reached out to patient daughter Sade. Sade notes that when patient was last in the hospital insurance would not cover for patient to go to rehab. Sade also notes that patient has not been open to going to [facility] care center. Discussed [facility] as an option for patient to reach out to in regards to home care, memory care, meterman care planning. Sade and RACHID also discussed [facility] and [facility] as options for home carein the area. Sade reports that [facility] also came out to the home for assessment, but patient does not meet Medicaid guidelines, so not eligible for their assistance. Sade also noted that it was mentioned drivers assessment. This Sw provided Sade with phone number for CC Drivers Assessment and noted the locations for assessment. Sade thanked this Sw for information and will reach out to Jonathon Rudolph to discuss care options. [facility]05-14-2025 Miscellaneous Notes* Telephone Encounter - Salome Perez MSW - 09/08/2024 11:03 AM EDT Sw left patient message to call Sw back. Sw also reached out to patient daughter Sade. Sade notes that when patient was last in the hospital insurance would not cover for patient to go to rehab. Sade also notes that patient has not been open to going to alf care center. Discussed [facility] as an option for patient to reach out to in regards to home care, memory care, meterman care planning. Sade and RACHID also discussed [facility] and [facility] as options for home carein the area. Sade reports that [facility] also came out to the home for assessment, but patient does not meet Medicaid guidelines, so not eligible for their assistance. Sade also noted that it was mentioned drivers assessment. This Sw provided Sade with phone number for CC Drivers Assessment and noted the locations for assessment. Sade thanked this Sw for information and will reach out to Jonathon Rudolph to discuss care options. documented in [facility] encounterWilson [facility] Telephone encounter Note * Telephone Encounter - Ruddy Cooper MD - 09/07/2024 3:15 PM EDT Appointment Friday was canceled and rescheduled with Bradford today--patient seen. [facility]05-13-2025 Miscellaneous Notes* Telephone Encounter - Ruddy Cooper MD - 09/07/2024 3:15 PM EDT Appointment Friday was canceled and rescheduled with Bradford today--patient seen. * Telephone Encounter - Jeanne Iverson MA - 09/06/2024 7:52 AM EDT See pt's Daughter, Sade's update regarding pt. Pt has Hospital f/u appt scheduled today with you. Jeanne Iverson MA documented in this encounterWilson Memorial Hospital05-13-2025 Instructions* Patient Instructions* Bradford Love APRN.CNS - 09/07/2024 2:31 PM EDT I recommend staying with someone for a while for now due to your frequent falls and possible memoryproblems. A new prescription has been sent to [facility] for your blood pressure medication. Stop taking losartan 50 mg and start taking losartan 25 mg daily. Do not start or resume taking the quetiapine (the Q medication) until you have been evaluated by a slots manager per your preference. A driving evaluation has been ordered to assess your ability to drive safely; please follow up to schedule this evaluation. Do not drive until you have completed this evaluation. Please set up an appointment with Dr. Meyer for neuropsychiatric testing and a review of your medications to address memory concerns. Consider discussing with social work possible support options to help prevent falls and ensure yoursafety at home. documented in this encounterWilson Memorial Hospital05-13-[facility]25 History of Present illness Narrative* Bradford Love APRN.CNS - 09/07/2024 1:47 PM EDT SUBJECTIVE: Diabetic Foot Exam Never done DTaP,Tdap,Td Vaccine(1 - Tdap) Never done Shingrix Vaccine(1 of 2) Never done Pneumococcal Vaccine: 50+(2 of 2 - PCV) due on 05/04/2015 RSV Vaccine(1 - 1-dose 75+ series) Never done HPI Judi Krause is a 79 year old female. PMH significant for ACTIVE PROBLEM LIST Reactive Depression Generalized Anxiety Disorder Osteoporosis, Unspecified Diffuse Cystic Mastopathy Ocular migraine Mixed Hyperlipidemia Vitamin D Deficiency Abnormal Pap Smear of Vagina Edema of Both Legs Venous Insufficiency (Chronic) (Peripheral) Gerd (Gastroesophageal Reflux Disease) Dupuytren's Contracture Infiltrating Ductal Carcinoma of Left Breast (Hcc) Primary Osteoarthritis of Right Knee Status Post Right Knee Replacement Type 2 Diabetes Mellitus With Diabetic Neuropathy, Without Long-Term Current Use of Insulin ([facility]) History of Cva (Cerebrovascular Accident) Dyspepsia Closed Fracture of Ankle Disorder of Tendon of Posterior Tibial Muscle Hammer Toe Insomnia Normochromic Normocytic Anemia Orthostatic Hypotension Posterior Tibial Tendinitis of Right Lower Extremity Primary Generalized Hypertrophic Osteoarthrosis Retention of Urine Walking Difficulty Due to Ankle and Foot Hypertension Physical Debility Complaints of Leg Weakness Gait Difficulty Presents for hospital discharge follow-up visit. She was seen at [facility] August 25 through August 30, 2024 for serial falls, adult failure to thrive and dementia with behavioral disturbances. Quetiapine was ordered. She presented to the emergency department on August 25, 2024 with report of a fall and confusion. She reported falling earlier in the day and did not feel right. She was brought in by EMS, who reported that she had fell previously, EMS was called and she refused transport to the hospital at that time. They reported that she was living alone and has been called out multiple times to her home. Lab work in ER was unremarkable overall. Urinalysis completed, possible UTI. Received Rocephin in the ER. CT of the brain was completed and showed no acute intercranial abnormality. Chronic microvascular ischemia with involutional changes were noted. CT cervical spine showed no acute fracture or, there were degenerative changes. CT chest and abdomen and pelvis with IV contrast showed no acute findings. She had mild descending and sigmoid colon wall thickening suggestive of infectious colitis. Acall was placed to the patient's daughter who is power of trade mark attorney to review her current status. Daughter notes that she has had waxing and waning confusion. She reported 2 weeks ago diagnosis with UTI and follow-up urinalysis did not show infection. Daughter noted that she felt her mother cannot live alone anymore. She was seen by PT during admission. Noted ambulating well during hospitalization. Notes indicate due to this she was not deemed a candidate for SNF placement. She was discharged home. She was advised not to drive. She was seen by social work, notes indicate that placement was being considered by her daughter, medical POA. She declined home health care at discharge. Presents today noting that she drove to her appointment today. Wanted her daughter Pierce to listen in on phone for visit which was done. Living situation: reports living at home alone Assistance: states son comes over whenever she needs him, lives in [place]. She also has a friendwith a time piece repairer job that cn come over to help at times Falls: report none since discharge Tushar Krause is local son. [place] . No complaints of UTI symptoms, states can not give a smple today for recheck. - Recent hospitalization due to multiple falls at home. - Reports 7 falls over the past 2-3 months. - No falls since discharge, but had a near-fall incident today when stepping into the garage. - Drove to the appointment today; was advised to undergo a driving evaluation at discharge. - Living alone; son lives in [place], but Judi prefers to stay at her own home. - Has a friend, Desiree Solitario, who helps with household tasks as needed. - Awaiting delivery of a life alert system. - Not taking quetiapine prescribed at discharge; family advised against it due to concerns about its use for bipolar and schizophrenia. - Treated for a UTI during hospitalization; believes UTI caused her confusion. - Experiences fatigue easily. Review of Systems Constitutional: Negative. Objective BP 99/65 Pulse 91 Resp 16 Wt 66.9 kg (147 lb 7.8 oz) BMI 26.13 kg/m Physical Exam Vitals and nursing note reviewed. Constitutional: Appearance: Normal appearance. HENT: Head: Normocephalic and atraumatic. Eyes: Conjunctiva/sclera: Conjunctivae normal. Neck: Thyroid: No thyroid mass or thyromegaly. Cardiovascular: Rate and Rhythm: Normal rate and regular rhythm. Pulses: Carotid pulses are 2+ on the right side and 2+ on the left side. Radial pulses are 2+ on the right side and 2+ on the left side. Heart sounds: Normal heart sounds. Pulmonary: Effort: Pulmonary effort is normal. Breath sounds: Normal breath sounds. Abdominal: General: Bowel sounds are normal. Palpations: Abdomen is soft. Musculoskeletal: Right lower leg: No edema. Left lower leg: Scant ankle swelling Arthritic changes both hands. Skin: General: Skin is warm and dry. Neurological: Mental Status: She is alert. Mental status is at baseline. Psych: agitated, angry during visit ALLERGIES Allergen Reactions Codeine GI Upset Morphine GI Upset Prozac [Fluoxetine] Intolerance nervousness Medications metFORMIN (GLUCOPHAGE) 500 mg tablet Take 1 tablet by mouth daily with breakfast. For blood sugar. Do not take this medicine if you are not eating. letrozole (FEMARA) 2.5 mg tablet Take 1 tablet by mouth once daily. aspirin, enteric coated (ASPIRIN, ENTERIC COATED) 81 mg EC tablet Take 81 mg by mouth once daily. losartan (COZAAR) 25 mg tablet Take 1 tablet by mouth once daily. nortriptyline (PAMELOR) 50 mg capsule Take 2 capsules by mouth daily at bedtime. zolpidem (AMBIEN) 10 mg Take 0.5-1 tablets by mouth at bedtime as needed (insomnia) for up to 14 days. 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, unspecified Dysfunction of eustachian tube Essential hypertension, benign Generalized anxiety disorder Anxiety, Generalized Internal hemorrhoids without mention of complication Lumbago Nonspecific abnormal finding in stool contents Ocular migraine Osteoporosis, unspecified Type 2 diabetes mellitus without complication, without long-term current use of insulin (HCC) Unspecified constipation Unspecified essential hypertension Varicose veins of other sites Social History Tobacco Use Smoking status: Never Smokeless tobacco: Never Vaping Use Vaping status: Never Used Substance Use Topics Alcohol use: No Drug use: Never The 10-year ASCVD risk score (Natividad CHAVIRA, et al., 2019) is: 30.8% Values used to calculate the score: Age: 79 years Sex: Female Is Non- : No Diabetic: Yes Tobacco smoker: No Systolic Blood Pressure: 99 mmHg Is BP treated: Yes HDL Cholesterol: 43 mg/dL Total Cholesterol: 232 mg/dL Latest Ref Rng 09/10/2023 12/09/2023 03/15/2024 06/18/2024 WBC 3.70 - 11.00 k/uL 8.29 RBC 3.90 - 5.20 m/uL 4.77 Hemoglobin 11.5 - 15.5 g/dL 14.4 Hematocrit 36.0 - 46.0 % 43.9 MCV 80.0 - 100.0 fL 92.0 MCH 26.0 - 34.0 pg 30.2 MCHC 30.5 - 36.0 g/dL 32.8 RDW-CV 11.5 - 15.0 % 12.5 Platelet Count 150 - 400 k/uL 364 MPV 9.0 - 12.7 fL 8.8 (L) Neut% % 59.0 Abs Neut (ANC) 1.45 - 7.50 k/uL 4.90 Lymph% % 28.2 Abs Lymph 1.00 - 4.00 k/uL 2.34 Thayer% % 8.6 Abs Thayer <0.87 k/uL 0.71 Eosin% % 3.3 Abs Eosin <0.46 k/uL 0.27 Baso% % 0.5 Abs Baso <0.11 k/uL 0.04 Immature Gran % % 0.4 IMMATURE GRANS (ABS) <0.10 k/uL 0.03 NRBC /100 WBC 0.0 Absolute nRBC <0.01 k/uL <0.01 DTYPE Auto Protein, Total 6.3 - 8.0 g/dL 7.0 Albumin 3.9 - 4.9 g/dL 4.1 Calcium 8.5 - 10.2 mg/dL 9.6 9.9 Bilirubin, Total 0.2 - 1.3 mg/dL 0.2 Alkaline Phosphatase 34 - 123 U/L 52 AST 13 - 35 U/L 23 ALT 7 - 38 U/L 21 Glucose 74 - 99 mg/dL 473 (H) 100 (H) BUN 7 - 21 mg/dL 21 24 (H) Creatinine 0.58 - 0.96 mg/dL 0.76 0.91 Sodium 136 - 144 mmol/L 134 (L) 139 Potassium 3.7 - 5.1 mmol/L 4.4 4.8 Chloride 98 - 107 mmol/L 97 102 CO2 22 - 30 mmol/L 27 24 Anion Gap 8 - 15 mmol/L 10 13 eGFR >=60 mL/min/1.73m 81 65 EDGARDO Negative Positive ! EDGARDO Titer 1:160 EDGARDO Pattern Nuclear fine speckled Hemoglobin A1C 4.3 - 5.6 % 7.3 (H) 7.1 (H) 6.5 (H) Estimated Average Glucose mg/dL 163 157 140 WSR 0 - 20 mm/hr 8 CRP <0.9 mg/dL 0.4 Rheumatoid Factor <16 IU/mL <10 Vitamin D 25 Hydroxy 31.0 - 80.0 ng/mL 23.5 (L) TTE 01/02/2024 CONCLUSIONS: - Technically difficult exam due to body habitus. - Exam indication: Syncope - The left ventricle is normal in size. Left ventricular systolic function is normal. EF = 55 5% (2D biplane) Grade I left ventricular diastolic dysfunction. - The right ventricle is normal in size. Right ventricular systolic function is normal. - There are no significant valvular abnormalities. - The visualized aorta is borderline dilated with a maximal dimension of 3.8 cm. - Exam was compared with the prior echocardiographic exam performed on 01/25/2021, no significant change. 1. Frequent falls (R29.6) 2. Dementia with other behavioral disturbance, unspecified dementia severity, unspecified dementia type (HCC) (F03.918) - Recent hospitalization due to multiple falls and confustion; has fallen approximately seven timesin the past few months. - Discharge instructions included a recommendation for a driving evaluation, which has not been completed; is currently driving against medical advice. Declined to schedule driving evaluation, will call back later to schedule. - She is living alone, with occasional assistance from a friend. Recommend she stay with family or friend for a period of time so she can be monitored for falls, medication management, memory, dietary intake. Declines at this time, unclear if family will be available for this. - Quetiapine was prescribed at discharge for behavioral disturbances but has not been taken; familyexpressed concerns about the medication.Judi Krause prefers to not take at this time - Referred to Dr. Meyer, a slots manager, for further evaluation and management of dementia and behavioral disturbances. Declined to schedule at this time. - Discussed the importance of having someone stay with the patient temporarily to monitor for fallsand ensure safety. - Recommended holding off on quetiapine until evaluation by slots manager. - Advised family to consider assisted living or home care services to ensure patient safety. Judi Krause declined [facility] at this time 3. Failure to thrive in adult (R62.7) - reports fatigue and decreased energy levels. - Discussed the importance of adequate nutrition and hydration. - Referred to social work for assistance with home care, assisted living or other housing options. 4. Primary hypertension (I10) - Blood pressure readings are low in office today. - Decreased losartan dosage by half; new prescription sent to [facility] pharmacy.. 5. Urinary tract infection without hematuria, site unspecified (N39.0) - Recent UTI treated during hospitalization. - Ordered urinalysis to reassess for any ongoing infection. - declined to provide a urine sample today; advised to visit the lab tomorrow for testing. 6. Type 2 diabetes mellitus with diabetic neuropathy, without long-term current use of insulin (HCC) (E11.40) - No specific concerns addressed during this visit. - Continue current management. 7. 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) (C50.912) - No specific concerns addressed during this visit. - Continue current management. With her frequent falls and apparent difficulty with memory she has at risk for injury and medication management problems. Have recommended that she stay with someone and avoid driving at this time for her safety. Declinesall appointments and home health care as well at this time. Daughter Pierce was on the phone throughout the visit and aware of the recommendations as noted above. Medical Decision Making: Problems: Moderate: 1+ chronic illnesses with change Data: Unique source(s) for external note(s) reviewed: 1 Unique test result(s) reviewed: 3+ Unique test(s) ordered: 1 Risk: Moderate: Drug management Medical Decision Making Level: 4 - Moderate documented in this encounterWilson Memorial Hospital05-12-2025 Telephone encounter Note * Telephone Encounter - Jeanne Iverson MA - 09/06/2024 7:52 AM EDT See pt's Daughter, Sade's update regarding pt. Pt has Hospital f/u appt scheduled today with you. Jeanne Iverson MA [facility]05-07-2025 History of Present illness Narrative* Lamar De Leon RN - 09/01/2024 2:17 PM EDT PRIMARY CARE COORDINATION QUICK NOTE Provider Action/FYI Patient identified by name and date . Spoke to pt and let her know that pharmacy will not be calling because medication question would beout of scope for the TCM pharmacy team as it is an out of network discharge - Recommended once she picks up meds at pharmacy if any questions to contact PCP. Pt agreed. Hosp f/u 09/06/24 with PCP --END CALL documented in this encounterWilson Memorial Hospital05-07-2025 History of Present illness Narrative* Jocelyn Hudson MA - 09/01/2024 9:38 AM EDT POPULATION HEALTH NAVIGATION OUTREACH Action/FYI Community Monitoring Navigation Pool/TCM TCM eligible through 09/13/2024 Pt discharged from [facility] on 08/30/2024 Admitted for: Fall, Failure to thrive Highest Readmission Risk Score: N/A Discuss/Due for: Hospital Follow Up/HCC Gap Closure HM Due: Medicare Wellness, Dilated Retinal Exam Navigation Team Update / Actionable Items Readmission Risk = n/a Out of Network Schedule within 14 days TCM eligible through 09/13 Pt has appt with PCP 09/13, not sure if PCP would agree to use for hospital f/u Outcome: 1st attempt - Spoke to patient Scheduled Hospital Follow Up Scheduled Medicare Wellness Scheduled Hematology Patient reports going to outside [facility] for Dilated Retinal Exam Reason for Outreach Community Monitoring/Network Navigator Pools & Phone Line: CM Pool Care Gaps due: Medicare Annual Wellness Visit Follow-up Appointment Diabetic Eye Exam Patient Contacted: Spoke to patient/parent/or legal guardian Patient identified by name and : Yes Community Monitoring/Network Navigator Pools & Phone Line actions taken: Patient scheduled / pended orders: Medicare Annual Wellness Visit Hospital Follow-up: Medium risk 10-14% Specialty Scheduling 09/06/2024 in [facility] with RUDDY COOPER - Hospital Follow Up/TCM eligible through 09/13/2024- HCC Gap Closure , Pt discharged from [facility] on 08/30/2024, Admitted for: Fall, Failure tothrive , Highest Readmission Risk Score: N/A 09/14/2024 in [facility] with RAPHAEL PERDOMO - 6 MO OV 12/06/2024 in [facility] with BRADFORD LOVE - 2024 Medicare Wellness Z00.00/HCC Gap Closure 01/06/2025 in [facility]IO [facility] with SCREEN MAMMO [facility] - Encounter for screening mammogram for breast cancer [Z12.31] 03/01/[address] [facility] with CT [facility] (I-STAT) - Dx: 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], Comment: 1. 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 Zaragoza, recurrence s/p Web 01/22/2021 with recovery c/b intraop rupture w/Dr. Jones, 2. ACOM s/p clipping 07/[address] Rodas, 3. Left MCA/termporal aneurysm s/p clipping 07/[address] Rodas, 4. Left ophthalmic aneurysms/p wrapping 07/[address] Rodas, 5. Right PCOM 3mm, 6. Right ICA, cavernous outpouching 03/08/2025 in [facility] with MELANI ZUNIGA - Residual Aneurysm, New Consult In Person Navigation Signature: Jocelyn Hudson MA September 01, 2024 9:38 AM * Lamar De Leon RN - 09/01/2024 9:01 AM EDT Transition Care Management (TCM) Initial Outreach PCP Update / Actionable Items Pharmacy Update / Actionable Items [facility] for falls and failure to thrive Pt has questions about new medications prescribed at discharge. Pt would benefit from medication reconciliation Thank you Navigation Team Update / Actionable Items Readmission Risk = n/a Out of Network Schedule within 14 days TCM eligible through 09/13 Pt has appt with PCP 09/13, not sure if PCP would agree to use for hospital f/u Please confirm Thank you HRTIC TCM Home Visit Referral Source of Stratification: [facility] Hospital Admission Status: Discharged Readmission Risk Score: na Patient's zip code: Is zip code within program service area: Patient meets program referral criteria: No Patient does not qualify for High Risk TCM Home Visit program due to: Readmission Risk Score does not meet criteria Disposition: Patient does not qualify for HRTIC, will provide TCM outreach follow-up for 30-days Patient Source: [id number] ([facility]) Discharge Outreach Summary: Feels much better at home. [place] she did not get quality care at [facility] Offered emotional support Pt lives alone and daughters are out of state. Denies falls, dizziness, light headedness, CP, SOB Pt has a toe deformity and it catches on things and she feels that is why she has falls Recommended wearing shoes while ambulating and remove throw rugs Eating and drinking. Per pt she was not discharged with C. Pt unsure of medications since discharge. Agreed to pharm Routed Recommended if any new or worsening symptoms contact PCP or H@H Patient discharged from [place] [facility] Discharge date: 08/30/24 Admitted for: Fall, Failure to thrive Readmission Risk: n/a Value-Based Contract: Moriah OLIVERA Contact: Contact made with patient: Yes Hi, my name is Lamar De Leon RN and I am calling from the [facility] on behalf of your Primary Care Provider, Ruddy Cooper MD. I understand you were recently in the hospital, so I am calling to check in with you to ensure you are feeling well now that you are home. May I ask you a few questions related to your hospital stay and well-being? Yes Spoke to: Patient Validation: Validated the person spoken to is actively involved in the patient's care. The patient was identified by Name and Date of . Symptoms: Are you feeling about the same, better or worse since leaving the hospital? Better Medications: Do you have any questions about taking your medications, including which medications you should be on, or do you need refills on your medications? Yes The patient has questions about medications. Informed patient the pharmacy team will be in contact to discuss further. Routed to RX 4C Medication Question ([id number]) and indicate in Pharmacy Box Medication Review: Declined at this time per patient preference Pt confused about medication prescribed at [facility] hospital discharge Pt agreed to speak with pharmacist Discharge Instructions: Your Discharge Instructions / After Visit Summary (AVS) are important in guiding you through the recovery process. Do you have any questions related to your discharge instructions? No Home Care: Were you discharged with home care? No Equipment: Do you have all the necessary equipment and supplies needed at your home? No Reviewed equipment and supplies needed Facilitated any orders and/or provider updates on behalf of the patient as needed Social: Your mental health is as important to us as your physical health. Would you mind answering a few questions on this topic? No, patient declines. Follow-Up Appointment: [Appointment / TCM Follow-up within 14 days] I would like to help you schedule a hospital follow-up virtual or telephone visit with your PCP. This is a great way for you to connect with your provider to ensure you have safely transitioned home.If you are agreeable, I will send your request to a graining press operator who will contact and assist you with that appointment. This will give you an opportunity to ask any questions or address any concerns youmay have with your PCP. Inform the patient that if they have any questions or concerns prior to that appointment, to call their PCP's office right away. Appointment Action: No action required; patient already has appointment scheduled. Education details: Patient and family educated on issues/questions related to reason for admission,transition of care topics, and follow-up needed upon discharge. Lamar De Leon RN September 01, 2024 9:03 AM documented in this encounterWilson [facility] Hospital05-[facility]25 [facility] Medical Records Department [address] [place] [id number] Discharge Summary 08/30/24 1406 MR#: [id number] Acct: [id number] Name: JUDI KRAUSE Rep #: [id number] : 1945 79 From: Jose Mariee DO PCP: Dr. Ruddy Cooper MD Status:ADM IN [place] [facility] [place] [facility] Providers Date of Admission: 08/25/24 Primary Care Physician: Dr. Ruddy Cooper MD Reason For Visit: SERIAL FALLS ADULT FTT Diagnosis Discharge Diagnosis (1) Adult failure to thrive: Status: Acute Code(s): R62.7 - Adult failure to thrive Plan: Walks too well and therefore deemed not a candidate for SNF Pt to be discharged home. Plan Dementia: with behavioral disturbances. required quetiapine Medications at Discharge Home Medications aspirin 81 mg tablet 81 mg PO DAILY heart health 02/02/21 letrozole 2.5 mg tablet 2.5 mg PO DAILY 08/25/24 losartan 50 mg tablet 50 mg PO DAILY 08/25/24 metformin 500 mg tablet 500 mg PO DAILY diabetes mellitus 08/25/24 nortriptyline 50 mg capsule 100 - 150 mg PO QHS 08/25/24 quetiapine 25 mg tablet 25 mg PO QHS #30 tabs 08/30/24 Hospital Course Operations None Procedures None Summary of Care Provided Minutes Spent on Discharge: 32 Hospital Course: Patient presents with falls at home. Unable to care for herself. Plan is for the patient go to usp facility but during the course of her hospitalizations patient was able to walk very effectively and safely but did have issues in regards to confusion and hallucinations. This presently, when I evaluated her on the fifth she was alert and oriented x 3. Though she could not give me specific details about why she was here she is rather vague about that but was able to say that therapy did nothing for her. The patient's son who resides in [place] was out of the country and so social work to speak with the patient's daughters and since she was walking around she well she would not qualify to go to a usp facility so the plan is for her to go home. Weight / BMI Weight Weight: 67.5 kg Body Mass Index (BMI) 26.4 ABG / Lab / Microbiology Data 08/30/24 07:39 08/30/24 07:39 Laboratory: Laboratory Results - last 24 hr 08/29/24 16:44: POC Glucose 132 H 08/30/24 07:39: WBC 6.6, RBC 4.56, Hgb 13.8, Hct 41.9, MCV 91.9, MCH 30.3, MCHC 32.9, RDW Std Deviation 42.5, RDW Coeff of Meño 12.6, Plt Count 325, MPV 8.2, Sodium 138, Potassium 4.2, Chloride 107, Carbon Dioxide 19.7 L, Anion Gap 12, BUN 22 H, Creatinine 0.87, Estim Creat Clear Calc 49.17 L, Est GFR (MDRD) Non-Af 68, BUN/Creatinine Ratio 25.5 H, Glucose 132 H, Calcium 8.9 Microbiology: Microbiology 08/25/24 22:45 Urine, Clean Catch Urine Culture - Final Proteus mirabilis D/C Instructions DC O2, CPAP, BIPAP Needs Home O2 Discharge instructions: No Meaningful Use Info Meaningful Use Meaningful Use Diagnoses (Choose all that apply): None applicable Ischemic Stroke Statin Dosing Therapy Reference: STATIN DOSE THERAPY REFERENCE: * Patients > 75 years receive moderate or high dose statin therapy. * Patients 75 years or YOUNGER should receive HIGH intensity statin dose unless contraindicated. You will be required to document reason for non-treatment if statin daily dose does not meet guidelines. HIGH DOSE STATIN THERAPY DAILY Atorvastatin > than or = to 40 mg Rosuvastatin > than or = to 20 mg Amlodipine + Atorvastatin > than or = to 2.5/40 mg Ezetimibe + Simvastatin 10/80 mg Simvastatin 80mg Discharge Plan Admission Admit Date/Time: 08/25/24 23:50 Primary Reason for Your Visit: Debility Attending Provider: Jose Mariee Primary Care Provider: Ruddy Cooper Consulting Providers: Isabel Michelle; Veto Lynne Instructions Additional Instructions / Restrictions: No driving. If you wish to drive, I recommend that you follow-up with geriatrics for a driving assessment. Discharge Orders/Prescriptions Prescriptions: New quetiapine 25 mg Tablet 25 mg PO QHS Qty: 30 0RF Continued aspirin 81 mg Tablet 81 mg PO DAILY losartan 50 mg tablet 50 mg PO DAILY metformin 500 mg tablet 500 mg PO DAILY letrozole 2.5 mg tablet 2.5 mg PO DAILY nortriptyline 50 mg capsule 100 - 150 mg PO QHS Referrals / Follow Up: Ruddy Cooper MD [Primary Care Provider] - Within 2 Weeks Disposition Disposition (needs filled in before D/C Order can be placed): Home, Self Care Charges/Coding Visit Charges Inpatient E M: 84768 Disch Hosp >30min 08/30/24 1412 Cosigner Signature (if applicable): CC: Dr. Jose Mariee DO; Dr. Ruddy Cooper [facility] Telephone encounter Note* Telephone Encounter - Raphael Perdomo APRN.MANUAL LATHE OPERATOR - 08/26/2024 8:22 AM EDT Noted. Sorry to hear that. Raphael Perdomo APRN.CNP [facility]05-01-2025 Miscellaneous Notes* Telephone Encounter - Raphael Perdomo APRN.CNP - 08/26/2024 8:22 AM EDT Noted. Sorry to hear that. Raphael Perdomo APRN.DESIRAE * Telephone Encounter - Isha Kaur - 08/26/2024 8:12 AM EDT Patient's daughter called to cancel 08/26 appointment with Raphael due to falling last night. [facility]. Isha Kaur documented in this encounterWilson [facility] Hospital05-[facility]-2025 Telephone encounter Note * Telephone Encounter - Isha Kaur - 08/26/2024 8:12 AM EDT Patient's daughter called to cancel 08/26 appointment with Raphael due to falling last night. [facility] the [facility]. Isha Kaur [facility]05-01-2025 Evaluation note* Diagnosis Onset Date Resolution Status Admit Date Adult failure to thrive resolved A pril 2024 11:50pm Multiple falls resolved July 11:50pm Physical debility resolved July 292024 11:50pm [facility] Work Phone: [phone]) 623-716204-29-2025 Telephone encounter Note* Telephone Encounter - Sarah Bain RN - 08/24/2024 12:58 PM EDT Daughter inquiring about lab results. Lipid panel with multiple elevated values. Have you received any outside charts for her. I have not seen anything, but someone else could have put on your desk without putting in an encounter. [facility]04-29-2025 Miscellaneous Notes* Telephone Encounter - Sarah Bain RN - 08/24/2024 12:58 PM EDT Daughter inquiring about lab results. Lipid panel with multiple elevated values. Have you received any outside charts for her. I have not seen anything, but someone else could have put on your desk without putting in an encounter. documented in this encounterWilson Memorial Hospital04-29-2025 Telephone encounter Note * Telephone Encounter - Elma Fuchs APRN.CNP - 08/24/2024 7:29 AM EDT See results message [facility]04-29-2025 Miscellaneous Notes* Telephone Encounter - Elma Fuchs APRN.CNP - 08/24/2024 7:29 AM EDT See results message documented in this encounterWilson Memorial Hospital04-22-2025 Telephone encounter Note * Telephone Encounter - Lamar Trevino - 08/17/2024 4:46 PM EDT Prescription Refill Information The patient has been identified by name and date of : Yes Caregiver verified no other encounters exist for this prescription request: Yes Caregiver confirmed with patient/requestor that no other refills are due, in the near future, with this provider at this time: Yes The last office visit in the department: 06-21-24 Does the patient have a future office visit with this provider/department: Yes Requested Prescriptions Pending Prescriptions Disp Refills losartan (COZAAR) 50 mg tablet 90 tablet 3 Sig: Take 1 tablet by mouth once daily. metFORMIN (GLUCOPHAGE) 500 mg tablet 90 tablet 3 Sig: Take 1 tablet by mouth daily with breakfast. For blood sugar. Do not take this medicine if youare not eating. Lamar Sierra August 17, 2024 4:47 PM [facility]04-22-2025 Miscellaneous Notes* Telephone Encounter - Lamar Trevino - 08/17/2024 4:46 PM EDT Prescription Refill Information The patient has been identified by name and date of : Yes Caregiver verified no other encounters exist for this prescription request: Yes Caregiver confirmed with patient/requestor that no other refills are due, in the near future, with this provider at this time: Yes The last office visit in the department: 06-21-24 Does the patient have a future office visit with this provider/department: Yes Requested Prescriptions Pending Prescriptions Disp Refills losartan (COZAAR) 50 mg tablet 90 tablet 3 Sig: Take 1 tablet by mouth once daily. metFORMIN (GLUCOPHAGE) 500 mg tablet 90 tablet 3 Sig: Take 1 tablet by mouth daily with breakfast. For blood sugar. Do not take this medicine if youare not eating. Lamar Sierra August 17, 2024 4:47 PM documented in this encounterWilson Memorial Hospital04-22-2025 Telephone encounter Note * Telephone Encounter - Bradford Love APRN.CNS - 08/17/2024 11:22 AM EDT ok [facility]04-22-2025 Miscellaneous Notes* Telephone Encounter - Bradford Love APRN.CNS - 08/17/2024 11:22 AM EDT ok * Telephone Encounter - Joanna Templeton LPN - 08/17/2024 11:17 AM EDT [place] lab calling, patient is there for blood work. Requesting a urine test, she had one done a week ago for UTI, is requesting a repeat lab to see if it has cleared up. Please review and advise. documented in this encounterWilson Memorial Hospital04-22-2025 Telephone encounter Note * Telephone Encounter - Joanna Templeton LPN - 08/17/2024 11:17 AM EDT [place] lab calling, patient is there for blood work. Requesting a urine test, she had one done a week ago for UTI, is requesting a repeat lab to see if it has cleared up. Please review and advise. [facility]04-21-2025 Instructions* Patient Instructions* Khris Salinas MD - 08/16/2024 1:28 PM EDT Complete a fasting blood test tomorrow morning at a local [facility] facility in [place] (plan for an 8-10 hour fast before the test) to help assess potential contributors to your neuropathy. Sign the release form provided by our team so we can obtain your recent EMG report from Dr. Mcguire at [facility] (from July 20) for review. Try to avoid leaning on your elbows--especially when sitting in your recliner--to reduce pressure on your ulnar nerve and help lessen hand weakness. Consider purchasing slip-on sneakers (such as those from [employer] or [employer]) that are designed for easier entry and better support to improve mobility. documented in this encounterWilson Memorial Hospital04-21-2025 History of Present illness Narrative* Khris Salinas MD - 08/16/2024 12:46 PM EDT [facility] New Patient Evaluation Consulting Provider: Melani Zuniga [address] [facility] [address] Individuals who were included in, or assisted with the encounter were: Judi Krause Khris Salinas MD Chief Complaint/Issues: Judi Krause is a 79 year old female seen in the [facility] for: Neuropathy HPI: Judi is a 79-year-old female with a history of peripheral neuropathy, diabetes, and multiple aneurysms, presenting for evaluation of worsening numbness and pain in the hands and legs. She is accompanied by her daughter, who provides additional history. Judi reports a 20-year history of numbness and pain in her legs and feet, which has progressively worsened. She describes her feet as completely numb, stating that during foot surgery, she felt no pain and did not require anesthesia or pain medication. She also experiences intermittent pain in her legs, though less frequently recently. She notes that her feet are numb from the knees down. Numbness and pain in her hands began approximately five years ago and have significantly worsened over the past year. She describes difficulty approximating her fingers and reports pain that can radiate up her arms. She sometimes shakes her hands to alleviate discomfort. She does not take regular pa in medication but uses [id number] pain relievers as needed, particularly at night to aid sleep. 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 She retired about five to six years ago. She does not endorse significantneck pain, reporting it occurs about once a month. She was recently evaluated by Dr. Mcguire at the [facility], who performed an EMG and diagnosed her with extreme neuropathy, referring her to neurology. She also had an EMG in 2014, which reportedly showed severe, length-dependent peripheral neuropathy in her legs. She reports some urinary incontinence, describing leakage when getting up from a chair or with certain movements. She also experiences dyspnea with minimal exertion, such as walking around her house.She does not endorse dysphagia, chest pain, or skin rashes. She has significant mobility issues, requiring her hands for balance and experiencing difficulty with movement. She has had multiple falls recently, including five in the past month, two of which occurred within the last few days. She reports falling out of bed and scraping her ankle, which she didnot initially feel due to numbness. She also describes an incident where she fell and it took her four to five hours to reach her phone and call for help. [place] [facility] [place] but has neighbors nearby. Her medical history is significant for diabetes, diagnosed a few months ago, with an A1c of 6.8% to4372. She also has a history of four aneurysms, the first of which was coiled in 2003 at the [facility]. She underwent additional procedures in 2004 and 2005, and two years ago, an aneurysm reportedly ruptured during surgery. She also has a history of breast cancer, treated with radiation therapy. She has a history of a knee replacement and a broken ankle in 2019, which affects her gait. She does not endorse a history of smoking or alcohol use, stating that she has not consumed alcohol in over20 years. Past Diagnostic, Results: - (07/20/2022) EMG: Severe neuropathy. - (2013) EMG: Severe, length-dependent peripheral neuropathy in lower extremities. General Examination: BP 113/72 Pulse 97 Wt 68.5 kg (151 lb) BMI 26.75 kg/m She is accompanied by her child. General: Awake, alert, interactive, no acute distress, good nutritional status, normal development,well-kept Neurological Exam Mental Status Alert, fully oriented, attentive, with normal cognition, memory, speech and affect. Cranial Nerves Visual singh intact. Fundi with normal discs and vasculature. Pupils reactive. Extraocular movements conjugate and full. No ptosis. No nystagmus. Facial sensation intact. Face symmetric and strong. Palate and tongue normal. XI normal. Motor Examination and Coordination Neuromuscular Examination Extremity Muscles Upper Extremity Right Left Shoulder abduction 5- 5- Elbow flexion 5 5 Elbow extension 5 5 Wrist extension 5 5 Finger flexion/lead loader 5 5 Finger pollicis longus 4+ Flexor digitorum profundus 4+ Finger extension 5- 5 First dorsal interosseous 3+ 3+ Abductor digiti minimi 4- 4- Abductor pollicis brevis 4- 4- Lower Extremity Right Left Hip flexion 5- 5- Knee flexion 5 5 Knee extension 5 5 Ankle plantarflexion 3 3 Ankle dorsiflexion 3 3 Extensor hallucis longus 2 2 Flexor digitorum longus 2 2 Tremor: None Coordination: Commensurate with weakness Reflexes Deep tendon reflexes graded by MRC Deep Tendon Reflexes Right Left Biceps 1 1 Triceps Tr Tr Brachioradialis Tr Tr Patellar 0 0 Achilles 0 0 Sensation Pinprick: diminished to knees, diminished to wrists Proprioception: Cannot reliably distinguish movment at the ankls. Gait Comes: in wheelchair Assessment & Plan 1. 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 Disease related peripheral neuropathy (G62.89) - Long-standing peripheral neuropathy with onset at least as early as 2013, confirmed by EMG showing severe, length-dependent neuropathy in lower extremities. - Recent EMG performed on 07/20 at [facility]; will obtain records for review. - Diabetes mellitus type 2 is a known contributing factor; A1c has improved over time. - Ordered comprehensive fasting blood work to evaluate for additional causes of neuropathy, including vitamin deficiencies and autoimmune processes. - Advised patient to present to any [facility] facility for blood draw after an 8-10 hour fast. - Follow-up appointment to discuss results and further management. 3. Cerebral aneurysm (HCC) (I67.1) - History of multiple cerebral aneurysms, with the most recent intervention a few years ago. - No acute issues reported; continue current management. 4. Lesions of both ulnar nerves (G56.23) - Significant weakness in hand muscles innervated by the ulnar nerve, including first dorsal interosseous muscle. - Advised patient to avoid leaning on elbows to prevent further compression of the ulnar nerve. - Awaiting results of recent EMG to assess for ulnar nerve lesions. - Referral to Dr. Zapata in [place] or [place] for further evaluation and management if needed. Recording using [employer] software for draft documentation of the visit was discussed with the patient/authorized telecommunications sales representative; all questions welcomed and answered. Patient/authorized telecommunications sales representative agreed to proceed Data Review Objective Current Outpatient Medications Medication Sig cephALEXin (KEFLEX) 500 mg capsule Take 1 capsule by mouth four times daily for 7 days. nortriptyline (PAMELOR) 50 mg capsule Take 2-3 capsules by mouth daily at bedtime. letrozole (FEMARA) 2.5 mg tablet Take 1 tablet by mouth once daily. losartan (COZAAR) 50 mg tablet Take 1 tablet by mouth once daily. metFORMIN (GLUCOPHAGE) 500 mg tablet Take 1 tablet by mouth daily with breakfast. For blood sugar. Do not take this medicine if you are not eating. zolpidem (AMBIEN) 10 mg Take 0.5-1 tablets by mouth at bedtime as needed (insomnia) for up to 14 days. aspirin, enteric coated (ASPIRIN, ENTERIC COATED) 81 mg EC tablet Take 81 mg by mouth once daily. No current facility-administered medications for this visit. ACTIVE PROBLEM LIST Reactive Depression Generalized Anxiety Disorder Osteoporosis, Unspecified Diffuse Cystic Mastopathy Ocular migraine Mixed Hyperlipidemia Vitamin D Deficiency Abnormal Pap Smear of Vagina Edema of Both Legs Venous Insufficiency (Chronic) (Peripheral) Gerd (Gastroesophageal Reflux Disease) Dupuytren's Contracture Infiltrating Ductal Carcinoma of Left Breast (Hcc) Primary Osteoarthritis of Right Knee Status Post Right Knee Replacement Type 2 Diabetes Mellitus With Diabetic Neuropathy, Without Long-Term Current Use of Insulin ([facility]) History of Cva (Cerebrovascular Accident) Dyspepsia Closed Fracture of Ankle Disorder of Tendon of Posterior Tibial Muscle Hammer Toe Insomnia Normochromic Normocytic Anemia Orthostatic Hypotension Posterior Tibial Tendinitis of Right Lower Extremity Primary Generalized Hypertrophic Osteoarthrosis Retention of Urine Walking Difficulty Due to Ankle and Foot Hypertension Physical Debility Complaints of Leg Weakness Gait Difficulty PAST MEDICAL HISTORY Diagnosis Date Anatomical narrow angle glaucoma Aneurysm 4 ruptured BCC (basal cell carcinoma), trunk chest; Dr. 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, unspecified Dysfunction of eustachian tube Essential hypertension, benign Generalized anxiety disorder Anxiety, Generalized Internal hemorrhoids without mention of complication Lumbago Nonspecific abnormal finding in stool contents Ocular migraine Osteoporosis, unspecified Type 2 diabetes mellitus without complication, without long-term current use of insulin ([facility]) Unspecified constipation Unspecified essential hypertension Varicose veins of other sites PAST SURGICAL HISTORY Procedure Laterality Date ABDOMINAL SURGERY HX 2004 tummy tuck ANESTHESIA HERNIA REPAIR LOWER ABDOMEN NOS ANKLE SURGERY HX Right 04/2019 Tendon repair BREAST LUMPECTOMY HX Left 01/2020 BREAST LUMPECTOMY HX Bilateral 01/2020 re-excision of margins COIL, EMBOLIZATION 2005 aneurysm COLONOSCOPY W/BIOPSY SINGLE/MULTIPLE 08/12/2007 FASCT PALM W/WO Z-PLASTY TISSUE REARGMT/SKN GRFT Right 01/05/2019 Right 5th finger palmar fasciectomy HAMMERTOE REVISION, ONE TOE Left 2016 HYSTERECTOMY HX 12/03/1988 IRIDOTOMY/IRIDECTOMY BY LASER Right OPEN TREATMENT,TRIMALLEOLAR ANKLE FRACTURE Right 05/29/2018 [facility] PICC LINE INSERT/CONSULT 01/23/2021 PICC LINE INSERT/CONSULT 01/29/2021 REMV CATARACT EXTRACAP,INSERT LENS Bilateral SHX CRANIOTOMY Left 2005 aneurysm TOTAL KNEE REPLACEMENT Right 07/2020 VEIN SURGERY (SPECIFY LOCATION) HX [address] Dr. Bahena Social History Tobacco Use Smoking status: Never Smokeless tobacco: Never Vaping Use Vaping status: Never Used Substance Use Topics Alcohol use: No Drug use: Never FAMILY HISTORY Problem Relation Age of Onset Breast Cancer Mother 72 Hypertension Mother Alzheimer's Disease Mother Coronary Artery Disease Father Alzheimer's Disease Sister Breast Cancer Maternal Aunt No Ocular Disease Other Review of Systems Lab and Test Review: Office Visit on 08/09/2024 Component Date Value Ref Range Status GLUCOSE UA (POCT) 08/09/2024 Negative Negative mg/dL Final BILIRUBIN UA (POCT) 08/09/2024 Negative Negative Final KETONE UA (POCT) 08/09/2024 Negative Negative mg/dL Final SPECIFIC GRAVITY UA (POCT) 08/09/2024 <=1.005 (A) 1.005 - 1.030 Final HEMOGLOBIN/BLOOD UA (POCT) 08/09/2024 Negative Negative Final PH UA (POCT) 08/09/2024 6.0 4.5 - 8.0 Final PROTEIN UA (POCT) 08/09/2024 Negative Negative mg/dL Final UROBILINOGEN UA (POCT) 08/09/2024 0.2 Normal E.U./dL Final NITRITE UA (POCT) 08/09/2024 Positive (A) Negative Final LEUKOCYTES UA (POCT) 08/09/2024 Trace (A) Negative Final COLOR UA (POCT) 08/09/2024 Yellow Final CLARITY UA (POCT) 08/09/2024 Cloudy Final Culture, Urine 08/09/2024 >=100,000 CFU/ml Escherichia coli (A) Final Appointment on 06/18/2024 Component Date Value Ref Range Status Hemoglobin A1C 06/18/2024 6.5 (H) 4.3 - 5.6 % Final [employer] Diabetes Association guidelines indicate that patients with HgbA1c in the range 5.7-6.4% are at increased risk for development of diabetes, and intervention by lifestyle modification may be beneficial. HgbA1c greater or equal to 6.5% is considered diagnostic of diabetes. Estimated Average Glucose 06/18/2024 140 mg/dL Final eAG: (Estimated average glucose) is a calculated value from HgbA1c and is telecommunications sales representative of the average blood glucose level in the last 2-3 month period. Outside Data/Labs: I spent a total of 60 minutes on the date of the service which included preparing to see the patient, [id number] patient care, completing clinical documentation, obtaining and/or reviewing separately obtained history, performing a medically appropriate examination, counseling and educating the pat ient/family/caregiver, and ordering medications, tests, or procedures. Khris Salinas MD * Khris Salinas MD - 08/16/2024 12:41 PM EDT [facility] New Patient Evaluation Consulting Provider: Melani Zuniga [address] [facility] [id number] Individuals who were included in, or assisted with the encounter were: Judi Salinas MD Chief Complaint/Issues: Judi Krause is a 79 year old female seen in the [facility] for: Neuropathy HPI: Judi is a 79-year-old female with a history of peripheral neuropathy, diabetes, and multiple aneurysms, presenting for evaluation of worsening numbness and pain in the hands and legs. She is accompanied by her daughter, who provides additional history. Judi reports a 20-year history of numbness and pain in her legs and feet, which has progressively worsened. She describes her feet as completely numb, stating that during foot surgery, she felt no pain and did not require anesthesia or pain medication. She also experiences intermittent pain in her legs, though less frequently recently. She notes that her feet are numb from the knees down. Numbness and pain in her hands began approximately five years ago and have significantly worsened over the past year. She describes difficulty approximating her fingers and reports pain that can radiate up her arms. She sometimes shakes her hands to alleviate discomfort. She does not take regular pa in medication but uses [id number] pain relievers as needed, particularly at night to aid sleep. 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 She retired about five to six years ago. She does not endorse significantneck pain, reporting it occurs about once a month. She was recently evaluated by Dr. Mcguire at the [facility], who performed an EMG and diagnosed her with extreme neuropathy, referring her to neurology. She also had an EMG in 2013, which reportedly showed severe, length-dependent peripheral neuropathy in her legs. She reports some urinary incontinence, describing leakage when getting up from a chair or with certain movements. She also experiences dyspnea with minimal exertion, such as walking around her house.She does not endorse dysphagia, chest pain, or skin rashes. She has significant mobility issues, requiring her hands for balance and experiencing difficulty with movement. She has had multiple falls recently, including five in the past month, two of which occurred within the last few days. She reports falling out of bed and scraping her ankle, which she didnot initially feel due to numbness. She also describes an incident where she fell and it took her four to five hours to reach her phone and call for help. [place] [facility] [place] but has neighbors nearby. Her medical history is significant for diabetes, diagnosed a few months ago, with an A1c of 6.8% [id number]. She also has a history of four aneurysms, the first of which was coiled in 2003 at the [facility]. She underwent additional procedures in 2004 and 2005, and two years ago, an aneurysm reportedly ruptured during surgery. She also has a history of breast cancer, treated with radiation therapy. She has a history of a knee replacement and a broken ankle in 2019, which affects her gait. She does not endorse a history of smoking or alcohol use, stating that she has not consumed alcohol in over20 years. Past Diagnostic, Results: - (07/20/2022) EMG: Severe neuropathy. - (2013) EMG: Severe, length-dependent peripheral neuropathy in lower extremities. General Examination: BP 113/72 Pulse 97 Wt 68.5 kg (151 lb) BMI 26.75 kg/m General Exam Neurological Exam Assessment & Plan 1. 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 Disease related peripheral neuropathy (G62.89) - Long-standing peripheral neuropathy with onset at least as early as 2013, confirmed by EMG showing severe, length-dependent neuropathy in lower extremities. - Recent EMG performed on 07/20 at [facility]; will obtain records for review. - Diabetes mellitus type 2 is a known contributing factor; A1c has improved over time. - Ordered comprehensive fasting blood work to evaluate for additional causes of neuropathy, including vitamin deficiencies and autoimmune processes. - Advised patient to present to any [facility] facility for blood draw after an 8-10 hour fast. - Follow-up appointment to discuss results and further management. 3. Cerebral aneurysm (HCC) (I67.1) - History of multiple cerebral aneurysms, with the most recent intervention a few years ago. - No acute issues reported; continue current management. 4. Lesions of both ulnar nerves (G56.23) - Significant weakness in hand muscles innervated by the ulnar nerve, including first dorsal interosseous muscle. - Advised patient to avoid leaning on elbows to prevent further compression of the ulnar nerve. - Awaiting results of recent EMG to assess for ulnar nerve lesions. - Referral to Dr. Zapata in [place] or [place] for further evaluation and management if needed. Recording using [employer] software for draft documentation of the visit was discussed with the patient/authorized telecommunications sales representative; all questions welcomed and answered. Patient/authorized telecommunications sales representative agreed to proceed Data Review Objective Current Outpatient Medications Medication Sig cephALEXin (KEFLEX) 500 mg capsule Take 1 capsule by mouth four times daily for 7 days. nortriptyline (PAMELOR) 50 mg capsule Take 2-3 capsules by mouth daily at bedtime. letrozole (FEMARA) 2.5 mg tablet Take 1 tablet by mouth once daily. losartan (COZAAR) 50 mg tablet Take 1 tablet by mouth once daily. metFORMIN (GLUCOPHAGE) 500 mg tablet Take 1 tablet by mouth daily with breakfast. For blood sugar. Do not take this medicine if you are not eating. zolpidem (AMBIEN) 10 mg Take 0.5-1 tablets by mouth at bedtime as needed (insomnia) for up to 14 days. aspirin, enteric coated (ASPIRIN, ENTERIC COATED) 81 mg EC tablet Take 81 mg by mouth once daily. No current facility-administered medications for this visit. ACTIVE PROBLEM LIST Reactive Depression Generalized Anxiety Disorder Osteoporosis, Unspecified Diffuse Cystic Mastopathy Ocular migraine Mixed Hyperlipidemia Vitamin D Deficiency Abnormal Pap Smear of Vagina Edema of Both Legs Venous Insufficiency (Chronic) (Peripheral) Gerd (Gastroesophageal Reflux Disease) Dupuytren's Contracture Infiltrating Ductal Carcinoma of Left Breast ([facility]) Primary Osteoarthritis of Right Knee Status Post Right Knee Replacement Type 2 Diabetes Mellitus With Diabetic Neuropathy, Without Long-Term Current Use of Insulin ([facility]) History of Cva (Cerebrovascular Accident) Dyspepsia Closed Fracture of Ankle Disorder of Tendon of Posterior Tibial Muscle Hammer Toe Insomnia Normochromic Normocytic Anemia Orthostatic Hypotension Posterior Tibial Tendinitis of Right Lower Extremity Primary Generalized Hypertrophic Osteoarthrosis Retention of Urine Walking Difficulty Due to Ankle and Foot Hypertension Physical Debility Complaints of Leg Weakness Gait Difficulty PAST MEDICAL HISTORY Diagnosis Date Anatomical narrow angle glaucoma Aneurysm 4 ruptured BCC (basal cell carcinoma), trunk chest; Dr. 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, unspecified Dysfunction of eustachian tube Essential hypertension, benign Generalized anxiety disorder Anxiety, Generalized Internal hemorrhoids without mention of complication Lumbago Nonspecific abnormal finding in stool contents Ocular migraine Osteoporosis, unspecified Type 2 diabetes mellitus without complication, without long-term current use of insulin (HCC) Unspecified constipation Unspecified essential hypertension Varicose veins of other sites PAST SURGICAL HISTORY Procedure Laterality Date ABDOMINAL SURGERY HX 2004 tummy tuck ANESTHESIA HERNIA REPAIR LOWER ABDOMEN NOS ANKLE SURGERY HX Right 04/2019 Tendon repair BREAST LUMPECTOMY HX Left 01/2020 BREAST LUMPECTOMY HX Bilateral 01/2020 re-excision of margins COIL, EMBOLIZATION 2005 aneurysm COLONOSCOPY W/BIOPSY SINGLE/MULTIPLE 08/12/2007 FASCT PALM W/WO Z-PLASTY TISSUE REARGMT/SKN GRFT Right 01/05/2019 Right 5th finger palmar fasciectomy HAMMERTOE REVISION, ONE TOE Left 2016 HYSTERECTOMY HX 12/03/1988 IRIDOTOMY/IRIDECTOMY BY LASER Right OPEN TREATMENT,TRIMALLEOLAR ANKLE FRACTURE Right 05/29/2018 [facility] PICC LINE INSERT/CONSULT 01/23/2021 PICC LINE INSERT/CONSULT 01/29/2021 REMV CATARACT EXTRACAP,INSERT LENS Bilateral SHX CRANIOTOMY Left 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 Bahena Social History Tobacco Use Smoking status: Never Smokeless tobacco: Never Vaping Use Vaping status: Never Used Substance Use Topics Alcohol use: No Drug use: Never FAMILY HISTORY Problem Relation Age of Onset Breast Cancer Mother 72 Hypertension Mother Alzheimer's Disease Mother Coronary Artery Disease Father Alzheimer's Disease Sister Breast Cancer Maternal Aunt No Ocular Disease Other Review of Systems Lab and Test Review: Office Visit on 08/09/2024 Component Date Value Ref Range Status GLUCOSE UA (POCT) 08/09/2024 Negative Negative mg/dL Final BILIRUBIN UA (POCT) 08/09/2024 Negative Negative Final KETONE UA (POCT) 08/09/2024 Negative Negative mg/dL Final SPECIFIC GRAVITY UA (POCT) 08/09/2024 <=1.005 (A) 1.005 - 1.030 Final HEMOGLOBIN/BLOOD UA (POCT) 08/09/2024 Negative Negative Final PH UA (POCT) 08/09/2024 6.0 4.5 - 8.0 Final PROTEIN UA (POCT) 08/09/2024 Negative Negative mg/dL Final UROBILINOGEN UA (POCT) 08/09/2024 0.2 Normal E.U./dL Final NITRITE UA (POCT) 08/09/2024 Positive (A) Negative Final LEUKOCYTES UA (POCT) 08/09/2024 Trace (A) Negative Final COLOR UA (POCT) 08/09/2024 Yellow Final CLARITY UA (POCT) 08/09/2024 Cloudy Final Culture, Urine 08/09/2024 >=100,000 CFU/ml Escherichia coli (A) Final Appointment on 06/18/2024 Component Date Value Ref Range Status Hemoglobin A1C 06/18/2024 6.5 (H) 4.3 - 5.6 % Final [employer] Diabetes Association guidelines indicate that patients with HgbA1c in the range 5.7-6.4% are at increased risk for development of diabetes, and intervention by lifestyle modification may be beneficial. HgbA1c greater or equal to 6.5% is considered diagnostic of diabetes. Estimated Average Glucose 06/18/2024 140 mg/dL Final eAG: (Estimated average glucose) is a calculated value from HgbA1c and is telecommunications sales representative of the average blood glucose level in the last 2-3 month period. Outside Data/Labs: I spent a total of 60 minutes on the date of the service which included preparing to see the patient, [id number] patient care, completing clinical documentation, obtaining and/or reviewing separately obtained history, performing a medically appropriate examination, counseling and educating the pat ient/family/caregiver, and ordering medications, tests, or procedures. Khris Salinas MD documented in this encounterCleveland [id number] History of Present illness Narrative* Zafar Brown PA-C - 08/09/2024 1:08 PM EDT This note was created using Skulptriter. Subjective Judi Krause is a 79 year old female. Patient is a 79-year-old female who complains of urinary frequency and incontinence that she has been experiencing for the past 2 days. Patient denies fever, chills, dysuria, hematuria, flank pain, nausea or other symptoms. Patient reports that she has no history of urinary incontinence or urinary tract infection. Review of Systems Genitourinary: Positive for urgency. Urinary Incontinence All other systems reviewed and are negative. Objective BP 126/80 Pulse 72 Temp 36.9 C (98.5 F) (Tympanic) Resp 18 Wt 68.8 kg (151 lb 10.8 oz) BMI 26.87 kg/m Physical Exam Vitals and nursing note reviewed. Constitutional: Appearance: Normal appearance. She is normal weight. HENT: Head: Normocephalic and atraumatic. Right Ear: External ear normal. Left Ear: External ear normal. Nose: Nose normal. Mouth/Throat: Mouth: Mucous membranes are moist. Pharynx: Oropharynx is clear. Eyes: Extraocular Movements: Extraocular movements intact. Conjunctiva/sclera: Conjunctivae normal. Pupils: Pupils are equal, round, and reactive to light. Cardiovascular: Rate and Rhythm: Normal rate. Pulses: Normal pulses. Heart sounds: Normal heart sounds. Pulmonary: Effort: Pulmonary effort is normal. Breath sounds: Normal breath sounds. Abdominal: General: Abdomen is flat. Palpations: Abdomen is soft. Musculoskeletal: Cervical back: Normal range of motion and neck supple. Skin: General: Skin is warm and dry. Capillary Refill: Capillary refill takes less than 2 seconds. Neurological: General: No focal deficit present. Mental Status: She is alert and oriented to person, place, and time. Psychiatric: Mood and Affect: Mood normal. Behavior: Behavior normal. Thought Content: Thought content normal. Judgment: Judgment normal. Assessment and Plan Physical exam findings as noted above. Urinalysis shows leukocyte esterase with nitrite and urine culture was ordered. Patient was provided with a prescription for Keflex 500 mg and advised that results of the urine culture will be available in 2 days. Patient was informed that she will be contacted if there is a need to change her medication based on the sensitivity report. Patient verbalizes clear understanding the above instructions. CLINICAL IMPRESSION: Acute UTI ASSESSMENT/PLAN: 1. Urinary frequency - ICD9: 788.41, ICD10: R35.0 (primary diagnosis) - UA DIP, URINE (POC) 2. Acute UTI - ICD9: 599.0, ICD10: N39.0 - BACTERIAL CULTURE, URINE - CEPHALEXIN 500 MG CAPSULE MDM Amount and/or Complexity of Data Reviewed Clinical lab tests: ordered and reviewed Risk of Complications, Morbidity, and/or Mortality Presenting problems: low Diagnostic procedures: low Management options: gregg Brown PA-C documented in this encounterWilson [facility] Telephone encounter Note * Telephone Encounter - Salome Perez MSW - 08/03/2024 1:50 PM EDT Patient daughter Sade called and asked about local social service support agencies for older adults. Sw noted [employer] Older Adult resource guide. Discussed [employer] for in home assessmentto see what needs someone has and if they qualify for Passport/Caregiver Support program. Sw also noted [facility], [facility], and [facility] [facility]. Sade thanked this Sw for information and noted that she would review local [employer] for older adult service agency information. [facility]04-08-2025 Miscellaneous Notes* Telephone Encounter - Salome Perez MSW - 08/03/2024 1:50 PM EDT Patient daughter Sade called and asked about local social service support agencies for older adults. Sw noted [employer] Older Adult resource guide. Discussed [employer] for in home assessmentto see what needs someone has and if they qualify for Passport/Caregiver Support program. Rachid also noted [facility], [facility], and [facility] [facility]. Sade thanked this Rachid for information and noted that she would review local [employer] guide for older adult service agency information. documented in this encounterWilson [facility] Hospital03-26-2025 Telephone encounter Note * Telephone Encounter - Winnie Khanna RN - 07/21/2024 4:31 PM EDT Returned Sade, patient's daughter phone call. Informed that a consult was placed with general neurology. Patient appreciated phone call and the assistance. LAURITA Zhou [facility]03-26-2025 Miscellaneous Notes* Telephone Encounter - Winnie Khanna RN - 07/21/2024 4:31 PM EDT Returned Sade, patient's daughter phone call. Informed that a consult was placed with general neurology. Patient appreciated phone call and the assistance. LAURITA Zhou * Telephone Encounter - Saurabh Nam - 07/21/2024 1:35 PM EDT CV PHONE Name of caller : Sade Relationship to patient : Son/Daughter If not self Will need patient permission to release results or disclose health information with called documented in i. Patient identified by Name and Date of . ( Judi Krause, 1945). 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 Asking for a call back at [phone] Thank you calling [facility] [place]. You will receive a return call within 48hours ( or 2 business days if close to the weekend). If you feel that this is an urgent issue and needs immediate attention, it is recommended that you contact your primary care provider office or proceed to your nearest Urgent Care Center of Emergency Room ED for evaluation/treatment. documented in this encounterWilson Memorial Hospital03-26-2025 Telephone encounter Note * Telephone Encounter - Saurabh Nam - 07/21/2024 1:35 PM EDT CV PHONE Name of caller : Sade Relationship to patient : Son/Daughter If not self Will need patient permission to release results or disclose health information with called documented in fyi. Patient identified by Name and Date of . ( Judi Reece Toya, 1945). 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 Asking for a call back at [phone] Thank you calling [facility] [place]. You will receive a return call within 48hours ( or 2 business days if close to the weekend). If you feel that this is an urgent issue and needs immediate attention, it is recommended that you contact your primary care provider office or proceed to your nearest Urgent Care Center [facility] Emergency Room ED for evaluation/treatment. [facility]03-04-2025 Progress note* Result Encounter Note - Bradford Love APRN.CNS - 06/29/2024 9:24 AM EST A1c improved [facility]03-04-2025 Miscellaneous Notes* Result Encounter Note - Bradford Love APRN.CNS - 06/29/2024 9:24 AM EST A1c improved documented in this encounterWilson Memorial Hospital02-28-2025 Telephone encounter Note * Telephone Encounter - Salome Perez MSW - 06/25/2024 9:28 AM EST Sw spoke with patient in regards to social work referral for group home manager options. Sw noted that she has [facility] Older Adult resource guide that has information such as group home manager, home delivered meals, assisted living information. Sw also has flyers for [facility], [facility] that Sw can mail to patient home as well. Patient noted would be helpful to have information and know what services are available in the community. [facility]02-28-2025 Miscellaneous Notes* Telephone Encounter - Salome Perez MSW - 06/25/2024 9:28 AM EST Sw spoke with patient in regards to social work referral for group home manager options. Sw noted that she has [facility] resource guide that has information such as group home manager, home delivered meals, assisted living information. Sw also has flyers for [facility], [facility] that Sw can mail to patient home as well. Patient noted would be helpful to have information and know what services are available in the community. [facility] in [facility] Telephone encounter Note * Telephone Encounter - Shirin Jay RN - 06/23/2024 3:47 PM EST Called Sade back. Advised her that after reviewing chart and discussing with nurse practitioner Melani Zuniga it will be a CTA in Nov prior to a follow-up with Dr. Jones(not an MRA). She states her mom does not like to go to [place] and would prefer [place] or [place]. Advised she can have imaginganywhere close to her and then per Melani if they prefer staying closer instead of follow-up with Dr. Jones in [place] they can follow up with [facility] in [place]. Sade states she would prefer that. Advised we will be in touch closer to Nov. Also advised that this nurse spoke to appt center and was told that since there are no notations in the chart, either pt or a family member probably called for appt after discussing the next nsgy f/up at the office visit with medical provider on 06/21. She states she wasn't at appt, but it is not on AVS. I agreed but informed her they did talk about it as per office notes. She understands that could be what happened. We will follow-up closer to Nov to assistgetting pt scheduled.Sade appreciated the f/up and information. Shirin Jay RN [facility]02-26-[facility]25 Miscellaneous Notes* Telephone Encounter - Shirin Jay RN - 06/23/2024 3:47 PM EST Called Sade back. Advised her that after reviewing chart and discussing with nurse practitioner Melani Zuniga it will be a CTA in Nov prior to a follow-up with Dr. Jones(not an MRA). She states her mom does not like to go to [place] and would prefer [place] or [place]. Advised she can have imaginganywhere close to her and then per Melani if they prefer staying closer instead of follow-up with Dr. Jones in [place] they can follow up with [facility] in [place]. Sade states she would prefer that. Advised we will be in touch closer to Nov. Also advised that this nurse spoke to appt center and was told that since there are no notations in the chart, either pt or a family member probably called for appt after discussing the next nsgy f/up at the office visit with medical provider on 06/21. She states she wasn't at appt, but it is not on AVS. I agreed but informed her they did talk about it as per office notes. She understands that could be what happened. We will follow-up closer to Nov to assistgetting pt scheduled.Sade appreciated the f/up and information. Shirin Jay RN * Telephone Encounter - Shirin Jay RN - 06/23/2024 11:13 AM EST Called daughter back. Sade wants to know who requested this appt and if they do f/up what would they be looking for and what would the outcome be. She states pt is hesitant about f/up due to all she has been through with ruptured aneurysms etc. Advised that we would be looking for stability and that if something changed Dr. Jones would discuss treatment at that point. She would like to discuss with her mom if she wants to continue with the imaging this year. Advised her that the call center called our dept to get pt scheduled, but not sure from looking through chart who called call center. Will try to dig a little deeper to find out for her. Pt had a PCP visit same day. Also reread last notes from Dr. Jones's nurse in 02/2023: He further recommends 2 year follow-up CTA (to avoid significant artifact from previous clips). Will clarify f/up (MRA vs. CTA) and call Sade back when questions can be better answered. She appreciated the information. Shirin Jay RN * Telephone Encounter - Bekah Julian - 06/23/2024 8:31 AM EST Daughter Sade and patient gave call back after receiving yesterday's voicemail to schedule imaging and follow up. Sade requests a call back at [phone] wanting to know why the re-establishingof imaging and a follow up is requested. Sade states due to the patient's age, they do not wish to consider any future procedures or surgeries regarding the patient's aneurysm, so they seek clarityon why this is being requested. In the meantime, Sade was provided the contact phone numbers for scheduling but will await a call back before proceeding. * Telephone Encounter - Devon Nance - 06/21/2024 2:30 PM EST ENDOVASCULAR INTAKE Patient name: Judi Krause When was triage completed? June 21 What diagnosis are you looking to be seen for within our center? (ex: aneurysm, angioma, arteriovenous malformation, brain bleed or brain hemorrhage, cavernous malformation, carotid stenosis, fistula, Moyamoya, Vein of Raphael, IIH or pseudotumor, etc.) Residual Aneurysm Is there a specific provider who is requesting you see our center? (referring provider) No Has your referring provider recommended a specific provider in our department? Dr. Jones (pt prefersto see him) Is this a second opinion? Have you been recommended for surgery or procedure for this condition? Reestablish Care. Not recommended for surgery/procedure. If yes, have you scheduled this procedure at another facility? If yes, when is the procedure scheduled? Where have you had any imaging for this diagnosis in the past year? These include images such as ultrasounds, MRIs, CTs, or angiograms of the head, brain, neck, carotids, or spine. 2022, [facility] in Chart is most recent imaging Have you had any surgeries or procedures for this condition? Yes If yes, where was it done and when? Who performed the surgery or procedure? Optic Nerve Surgery 2004 Dr. Zaragoza, Dr. Jones also performed surgery, took part of aneurysm out of brain, 2020, both at [facility] Does any of the following pertain to you? Family history of brain aneurysm? No Polycystic kidney disease or other genetic kidney disease? Not applicable if chronic kidney disease. No Connective tissue disease such as fibromuscular dysplasia or Nette-Danlos Syndrome? No Do you prefer in-person or virtual appointment? Out of state residents must be in [place] at the time of their virtual visit. In Person Specific day of the week or time of day? Any Time after 12PM/1PM Do you prefer to be notified of your appointment by phone or MyChart message? Phone Call Thank you for speaking with me today. Your information will now be forwarded to our endovascular advance practice provider team to review and provide scheduling recommendations. Please allow 3 business days to hear back from us. If you do not, feel free to call back [phone] for an update. * Telephone Encounter - Maxim JeevanKaitlynnly - 06/21/2024 12:06 PM EST Name of Caller & Phone Number: Angélica from the call center What diagnosis do you need seen for:residual aneurysm 3. Have you been recommended for surgery/procedure for this diagnosis: No 4. Have you had imaging for this diagnosis in the past year?: No Please call patient for a new patient appointment. Diann 2020 Thank you for the information, your chart will be forwarded to our Intake team. A coordinator will reach out to you within the next 24 hours to go through our triage questionnairewith you. If you don't receive a call from them within the next 3 business days, please call [phone] to follow up. documented in this encounterWilson [facility] Hospital02-26-2025 Telephone encounter Note * Telephone Encounter - Shirin Jay RN - 06/23/2024 11:13 AM EST Called daughter back. Sade wants to know who requested this appt and if they do f/up what would they be looking for and what would the outcome be. She states pt is hesitant about f/up due to all she has been through with ruptured aneurysms etc. Advised that we would be looking for stability and that if something changed Dr. Jones would discuss treatment at that point. She would like to discuss with her mom if she wants to continue with the imaging this year. Advised her that the call center called our dept to get pt scheduled, but not sure from looking through chart who called call center. Will try to dig a little deeper to find out for her. Pt had a PCP visit same day. Also reread last notes from Dr. Jones's nurse in 02/2023: He further recommends 2 year follow-up CTA (to avoid significant artifact from previous clips). Will clarify f/up (MRA vs. CTA) and call Sade back when questions can be better answered. She appreciated the information. Shirin Jay, LAURITA [facility]02-26-[facility] Telephone encounter Note* Telephone Encounter - Bekah Julian - 06/23/2024 8:31 AM EST Daughter Sade and patient gave call back after receiving yesterday's voicemail to schedule imaging and follow up. Sade requests a call back at [phone] wanting to know why the re-establishingof imaging and a follow up is requested. Sade states due to the patient's age, they do not wish to consider any future procedures or surgeries regarding the patient's aneurysm, so they seek clarityon why this is being requested. In the meantime, Sade was provided the contact phone numbers for scheduling but will await a call back before proceeding. [facility] Work Phone: [phone]) 238-437602-25-2025 History of Present illness Narrative* Norris Young RN - 06/22/2024 10:00 AM EST DIABETES CARE AND EDUCATION VISIT Location: [place] Type of visit: In person individual PATIENT'S MAIN CONCERN TODAY: Relatively new diagnosis of diabetes Support person present for education today: none Cognitive ability: Alert and oriented Motivation to learn: Interested Learning barriers identified by educator: none Method of instruction: written, verbal, and demonstration DIABETES FINDINGS: Monitoring: Checking every few months via A1c, not monitoring daily Meal Planning: reviewed foods with carbs Medications: pt states they are currently taking metformin, with no side effects, once per day Physical Activity: benefits reviewed, pt has had knee replacement and reportss balance issues sincehaving an aneurysm clipped Reducing Risks: benefits of controlling blood sugars to avoid complications progressing HANDOUTS: Healthy You: Survival Skills and Healthy You: Planning Healthy Meals LEARNING RESPONSE: Healthy eating: Demonstrated understanding/competency today or at previous visit Taking medications: Demonstrated understanding/competency today or at previous visit POSSIBLE FUTURE TOPICS: 1. DIABETES CARE AND EDUCATION PLAN: Education completed and annual diabetes education follow-up visit recommended Time Spent (Minutes): 45 This visit note will be communicated to the healthcare provider via access to shared medical record. SIGNATURE: Norris Young RN PATIENT NAME: Judi Krause DATE: June 22, 2024 TIME: 10:00 AM documented in this encounterWilson [facility] Hospital02-24-2025 Telephone encounter Note * Telephone Encounter - Bradford Love APRN.CNS - 06/21/2024 4:21 PM EST ok [facility]02-24-[facility] Miscellaneous Notes* Telephone Encounter - Bradford Love APRN.CNS - 06/21/2024 4:21 PM EST ok * Telephone Encounter - Norris Young RN - 06/21/2024 3:18 PM EST Consult to Diabetes Education order entered in correctly. documented in this encounterWilson [facility] Hospital02-24-2025 Telephone encounter Note * Telephone Encounter - Norris Young RN - 06/21/2024 3:18 PM EST Consult to Diabetes Education order entered in correctly. [facility]02-[facility] Telephone encounter Note* Telephone Encounter - Devon Nance - 06/21/2024 2:30 PM EST ENDOVASCULAR INTAKE Patient name: Judi Krause When was triage completed? June 21 What diagnosis are you looking to be seen for within our center? (ex: aneurysm, angioma, arteriovenous malformation, brain bleed or brain hemorrhage, cavernous malformation, carotid stenosis, fistula, Moyamoya, Vein of Raphael, IIH or pseudotumor, etc.) Residual Aneurysm Is there a specific provider who is requesting you see our center? (referring provider) No Has your referring provider recommended a specific provider in our department? Dr. Jones (pt prefersto see him) Is this a second opinion? Have you been recommended for surgery or procedure for this condition? Reestablish Care. Not recommended for surgery/procedure. If yes, have you scheduled this procedure at another facility? If yes, when is the procedure scheduled? Where have you had any imaging for this diagnosis in the past year? These include images such as ultrasounds, MRIs, CTs, or angiograms of the head, brain, neck, carotids, or spine. [facility] in Chart is most recent imaging Have you had any surgeries or procedures for this condition? Yes If yes, where was it done and when? Who performed the surgery or procedure? Optic Nerve Surgery 2004 Dr. Zaragoza, Dr. Jones also performed surgery, took part of aneurysm out of brain, 2020, both at [facility] Does any of the following pertain to you? Family history of brain aneurysm? No Polycystic kidney disease or other genetic kidney disease? Not applicable if chronic kidney disease. No Connective tissue disease such as fibromuscular dysplasia or Nette-Danlos Syndrome? No Do you prefer in-person or virtual appointment? Out of state residents must be in [place] at the time of their virtual visit. In Person Specific day of the week or time of day? Any Time after 12PM/1PM Do you prefer to be notified of your appointment by phone or MyChart message? Phone Call Thank you for speaking with me today. Your information will now be forwarded to our endovascular advance practice provider team to review and provide scheduling recommendations. Please allow 3 business days to hear back from us. If you do not, feel free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 low risk range. I do not recommend adjuvant chemotherapy. She will return in 6 weeks or so, after completion of radiation therapy, for re-evaluation and to start anastrozole. RADIATION:03/29/20 to 04/27/20 (Done in [place]/Dr. Storm) Bilateral breasts/left SC and axilla. Previous therapy:Arimidex Began 2020 Femara Began September 2022 Stopped d/t fatigue. Current therapy:Aromasin Began 11/2022 No new concerns today. Appetite:I eat. Wt. stable. Energy level:I get tired with the new pill. Denies fevers or recent illness. Resp:denies cough or sob Cardiac:denies chest pain/palpitations GI:denies abd pain, n/v, moving bowel regularly :denies dysuria/hematuria Extrem:b/l hand pain prior to AI, occ. 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 Past medical history, appointments, medications, allergies reviewed. No changes. EXAM: BP 120/80 Pulse 99 Temp 36.3 C (97.3 F) Wt 67.8 kg (149 lb 7.6 oz) SpO2 96% BMI 26.48 kg/m APPEARANCE Well appearing, alert, in no acute distress, well-hydrated, well nourished. HEART RRR with normal S1 and S2, no murmurs LUNG clear to auscultation BREAST FEMALE no mass/nodule b/l, L nipple/AC surgically absent/radiation changes, R lower surgicaldefect LYMPH NODES No cervical lymphadenopathy, No supraclavicular lymphadenopathy, and No axillary lymphadenopathy. ABDOMEN bowel sounds normoactive, soft, non-tender, non-distended EXTREMITIES No edema NEURO Awake, alert and oriented x 3, Normal gait, and No involuntary motions. SKIN Skin color, texture, turgor normal, no suspicious rashes or lesions RADIOLOGY: Mammogram 01/06/24: IMPRESSION: BENIGN There is no mammographic evidence of malignancy. A 1 year screening mammogram is recommended. ASSESSMENT/PLAN: 1. Invasive ductal carcinoma of breast, left (HCC) - ICD9: 174.9, ICD10: C50.912 (primary diagnosis) 2. Ductal carcinoma in situ (DCIS) of right breast - ICD9: 233.0, ICD10: D05.11 Stage IB, T2N1, grade 2 invasive carcinoma with mixed ductal and lobular features of the left breast s/p lumpectomy and sentinel node biopsy and then re- excision. It's ER positive (99%, strong), NM positive (99%, strong) and Her2/maria a 0. 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 - No concerning findings on exam. - Did not tolerate arimidex d/t fatigue. - Tolerating femara fairly well-taking it at hs. - Reviewed mammogram with pt. - Continue femara. - Bone density due October 2024. - Mammogram due December 2024. - Follow up in 6 months. - Pt. aware to call office with any questions/concerns. The sensitive examination was discussed with the Patient or Patient's Authorized Group Therapist. Asapplicable, any other physician, advance practice provider, medical student, or other health professional student that will be observing or involved in the sensitive examination for educational or training purposes was discussed with the Patient or Authorized Group Therapist. The Patient or Authorized Group Therapist has agreed to proceed with the sensitive examination. (Sensitive examination includes inspection and/or palpation of the breasts, pelvis, prostate and anorectal regions) The patient indicates understanding of these issues and agrees with the plan. All documentation from previous visit of 09/10/23-Dr. Osman/myself was copied and pasted, documentation has been reviewed and edited as necessary for today's visit. Raphael Perdomo APRN.CNP documented in this encounterWilson Memorial Hospital10-22-2024 Telephone encounter Note * Telephone Encounter - Poornima Zavala RN - 02/17/2024 11:44 AM EDT Call placed to patient and provider message reviewed. Patient verbalizes understanding. Poornima Zavala RN [facility]10-[facility] Miscellaneous Notes* Telephone Encounter - Poornima Zavala RN - 02/17/2024 11:44 AM EDT Call placed to patient and provider message reviewed. Patient verbalizes understanding. Poornima Zavala RN * Telephone Encounter - Elma Fuchs APRN.CNP - 02/17/2024 9:54 AM EDT Please return call and let her know I changed the prescription to be taken as 2 or 3 capsules (so 100 or 150 mg) at bedtime. Elma Fuchs APRN.CNP * Telephone Encounter - Poornima Zavala RN - 02/11/2024 11:59 AM EDT Patient calls to ask if she can go back on the nortriptyline 150 mg at bedtime. Patient reports that she has been having the abnormal sensations in both hands and nerve pain in the fingers again. She reports she didn't experience symptoms on the higher dose and at first when shestarted taking the 100 mg dose it improved from the lower dose that the hospital had put her on previously. Patient would need a new prescription sent to [facility] if provider agreeable to change. Poornima Zavala RN documented in this encounterWilson Memorial Hospital10-22-2024 Telephone encounter Note * Telephone Encounter - Elma Fuchs APRN.CNP - 02/17/2024 9:54 AM EDT Please return call and let her know I changed the prescription to be taken as 2 or 3 capsules (so 100 or 150 mg) at bedtime. Elma Fuchs APRN.CNP [facility] Telephone encounter Note* Telephone Encounter - Poornima Zavala RN - 02/11/2024 11:59 AM EDT Patient calls to ask if she can go back on the nortriptyline 150 mg at bedtime. Patient reports that she has been having the abnormal sensations in both hands and nerve pain in the fingers again. She reports she didn't experience symptoms on the higher dose and at first when shestarted taking the 100 mg dose it improved from the lower dose that the hospital had put her on previously. Patient would need a new prescription sent to [facility] if provider agreeable to change. Poornima Zavala RN [facility] History of Present illness Narrative* Ruddy Cooper MD - 01/27/2024 11:06 PM EDT Left without being seen documented in this encounterWilson Memorial Hospital10-01-2024 History of Present illness Narrative* Charleen Rocha, PT - 01/27/2024 1:39 PM EDT Program_ID:[id number] Access Code: [email or web address] URL: [email or web address] Date: 01-27-2024 Prepared By: Charleen Rocha Program Notes Exercises - Seated Heel Toe Raises - 2 x daily - 7 x weekly - 3-4 sets - 15 reps * Charleen Rocha, PT - 01/27/2024 1:28 PM EDT Images from the original note were not included. Episode Visit Count: 18 Therapist That Will Accept/Oversee The Plan Of Care: Charleen Rocha Start of Care Date: 09/29/23 Onset Date: 01/22/21 Plan of Care Certification Date: 12/16/23 Next Certification Due Date: 01/27/24 [facility] PHYSICAL THERAPY DISCONTINUANCE OF CARE PLAN OF CARE UPDATE: Assessment: Judi Krause is discontinued from Physical Therapy services due to goal achievement and maximal benefit.. Patient was seen for 18 visits from Start of Care Date: 09/29/23 to 01/27/2024 and treatment included: Therapeutic exercise, Neuromuscular re-education, Self-fdc management, and Gait training. Goals for Episode of Care: created on 09/29/23 through 11/10/23 Goals updated on 11/03/2023 through 12/14/23 Goals updated on 11/26/2023 through 12/14/13 Goals updated on 12/16/2023 through 01/27/24 Goals updated on 01/27/2024. Patient will report no falls. -- MET Improve score on Timed Up and Go Test to 10 or less seconds using AD to reflect decreased fall risk. -- PARTIALLY MET Improve score on 30 Second Chair Stand to 10 or more repetitions to reflect decreased fall risk. -- MET, 11 reps [place] in home exercise program including cardiovascular exercise. Patient will demonstrate independent and proper use of assisstive device to allow for improved walking quality and safety therefore reducing the risk of falls. -- MET Patient Goals: amb in her neighborhood or at the rec center with AD for 10-15 minutes -- MET NEW GOAL 11/03/23 score --PARTIALLY MET SUBJECTIVE: Denies falls since last visit. Pt. is ready for dc.. Pain: Pain Pain Level: 0 Post Treatment Pain Post Treatment Pain Level: 0 PROMIS Scales 01/27/2024 01/06/2024 12/16/2023 Higher is Better Phys Func - Score 35 (moderate dysfunction) 33 (moderate dysfunction) Phys Func - Percentile 7 4 Self-Eff Symptom - Score 49 (Average) Self-Eff Symptom - Percentile 46 T-scores: mean of general population = 50. 5 points is clinically meaningfully difference Percentiles provide an indication of how the patient's score ranks in relation to the general population. Higher percentile rankings indicate better function/quality of life. 50th percentile is the average of the general population and indicates half of respondents had a worse score. OBJECTIVE MEASURES WITH LEVEL OF FUNCTION: LE AROM L Ankle Dorsiflexion: 8 Degrees Functional Performance Test Results Timed Up and Go (sec): 21 sec Timed Up and Go - Condition 2 (sec) : 16 (with chair with arm rests) Dynamic Gait Index Gait level surface : 2 - Mild impairment- walks 20' uses assist device, slower speed, mild gait deviation Change in gait speed: 2 - Mild impairment- is able to change speed but demonstrates mild gait deviations or no gait deviations but unable to achieve a significant change in velocity, or uses an assistive device Gait and horizontal head turns: 2 - Mild impairment- performs R/L head turns smoothly with slight change in gait velocity, minor disruption to smooth gait path or uses assistive device Gait and vertical head turns: 2 - Mild impairment- performs up/ down head turns smoothly with slight change in gait velocity, minor disruption to smooth gait path or uses assistive device Gait and pivot: 2 - Mild impairment- pivot turns safely in >3 sec, stops, no loss of balance Step over obstacle: 2 - Mild impairment- is able to step over box, but must slow down and adjust steps to clear box Step around obstacle: 2 - Mild impairment- able to step around both cones, must slow down and adjust steps to clear cones Steps: 1 - Moderate impairment- 2 feet to a stair, must use rail Dynamic Gait Index Total: 15 TREATMENT: Therapeutic Exercise: 1: seated scifit nustep seat 16, level 2, 5 min 1:1 throughout, subjective collected 2: *Access Code: [email or web address] URL: [email or web address] Date: 01/27/2024 Prepared by: Charleen Santos Exercises - Seated Heel Toe Raises - 2 x daily - 7 x weekly - 3-4 sets - 15 reps Skilled Intervention: Patient was educated in proper exercise technique and purpose for exercises. Skilled judgment was used in selection of appropriate interventions. Provided written instruction for home exercise program to facilitate proper performance and compliance. Correct performance of therapeutic exercises was facilitated with verbal, visual, and tactile cuing. Educated patient on rationale for performing exercises in regards to decreasing fatigue , includingbalance, increase ease of ADL, and ROM and function . Patient education as noted. Neuromuscular Re-Education: 1: DGI with SC 2: TUG 3 sets, with SC Skilled Intervention: Skilled judgment used to assess appropriate program for balance and coordination activity. Education in proprioceptive/kinesthetic awareness during dynamic activities. Ensured patient safety with use of gait belt and SC Reviewed and educated patient on additions/changes for home program as noted above with an (*). Patient education as noted. Self-Skilled Nursing Management: 1: discused that pt. demonstrates improvement 2: encouraged pt. pick chairs that have an arm rests 3: discussed That pt .may return to therapy if she begins to notice decline in her balance/stamina Skilled Intervention: Skilled judgment in the selection of proper modification for activity of daily living/home management based on clinical presentation, deficits, and needs. Provided written instruction for activities of daily living techniques to facilitate proper performance and compliance. Reviewed patient specific diagnosis in relation to activities of daily living/home management. Activity progression based on professional judgement. Moderate verbal cues for maintaining neutral spine alignment. Provided written instruction for home program to facilitate proper performance and compliance. Correct performance of home program was facilitated with verbal, visual, and tactile cueing. Billing Therapeutic Exercise Treatment Minutes: 5 Neuromuscular Re-Education Treatment Minutes: 25 Self-Care/Home Management Treatment Minutes: 10 Skilled Treatment Time Minutes (timed and untimed codes): 40 Total Session Time (minutes): 40 Session Start Time : 1326 Session Stop Time : 1406 Charleen Rocha PT documented in this encounterWilson [facility]09-24-[facility] History of Present illness Narrative* Charleen Rocha, PT - 01/20/2024 1:23 PM EDT Episode Visit Count: 17 Therapist That Will Accept/Oversee The Plan Of Care: Charleen Rocha Start of Care Date: 09/29/23 Onset Date: 01/22/21 Plan of Care Certification Date: 12/16/23 Next Certification Due Date: 01/27/24 REHABILITATION AND SPORTS THERAPY PHYSICAL THERAPY TREATMENT NOTE ASSESSMENT: Judi Krause tolerated the session with no issues. She demonstrated difficulty with reverse stepping over 6 karla, but was able to complete without UE support in addition to SC.. The patient will continue to benefit from ongoing skilled physical therapy to progress toward set goals. PLAN FOR NEXT VISIT: DC SUBJECTIVE: Denies falls and reports no pain. Pain: Pain Pain Level: 0 Post Treatment Pain Post Treatment Pain Level: 0 OBJECTIVE MEASURES WITH LEVEL OF FUNCTION: TREATMENT: Therapeutic Exercise: 1: seated scifit nustep seat 16, level 2, 5 min 1:1 throughout, subjective collected Skilled Intervention: Patient was educated in proper exercise technique and purpose for exercises. Skilled judgment was used in selection of appropriate interventions. Correct performance of therapeutic exercises was facilitated with verbal, visual, and tactile cuing. Educated patient on rationale for performing exercises in regards to decreasing fatigue , includingbalance, increase ease of ADL, and ROM and function . Patient education as noted. Neuromuscular Re-Education: 1: fwd amb in // bars over foam curb tandem stepping 20' B UE support 2x 2: fwd amb in // bars over foam curb tandem stepping 20' x1 UE support 8x 3: lateral stepping in // bars over foam curb tandem stepping 20' x1 UE support 8x 4: amb with with #5 KB LUE and using SC in R hand, 40' 6x - emphasis on avoiding R trunk lean 5: 4 karla stepping 2x CW and 2x CCW - removed reverse stepping karla despite pt. able to complete 1x 6: stepping over foam curb 2x10 with SC Skilled Intervention: Skilled judgment used to assess appropriate program for balance and coordination activity. Education in proprioceptive/kinesthetic awareness during dynamic activities. Ensured patient safety with use of // bars and SC. Reviewed and educated patient on additions/changes for home program as noted above with an (*). Patient education as noted. Billing Therapeutic Exercise Treatment Minutes: 5 Neuromuscular Re-Education Treatment Minutes: 35 Skilled Treatment Time Minutes (timed and untimed codes): 40 Total Session Time (minutes): 40 Session Start Time : 1323 Session Stop Time : 1403 Charleen Rocha PT documented in this encounterWilson [facility] Hospital09-17-2024 History of Present illness Narrative* Charleen Rocha, PT - 01/13/2024 11:16 AM EDT Episode Visit Count: 16 Therapist That Will Accept/Oversee The Plan Of Care: Charleen Rocha Start of Care Date: 09/29/23 Onset Date: 01/22/21 Plan of Care Certification Date: 12/16/23 Next Certification Due Date: 01/27/24 REHABILITATION AND SPORTS THERAPY PHYSICAL THERAPY TREATMENT NOTE ASSESSMENT: Judi Krause tolerated the session with decreased symptoms. She demonstrated difficulty with tandem stepping but able to complete walking within 12 width path with BUE support within bars.. The patient will continue to benefit from ongoing skilled physical therapy to progress toward set goals. PLAN FOR NEXT VISIT: foam curb tandem stepping in // bars SUBJECTIVE: Denies falls. She has a birthday this Friday. Patient Goals: improve confidence with stair negociation using x1 HR and SC with or without reciprocal pattern. Functional Limitations: stair negotiation (balance,) Pain: Pain Pain Level: 0 Post Treatment Pain Post Treatment Pain Level: 0 OBJECTIVE MEASURES WITH LEVEL OF FUNCTION: TREATMENT: Therapeutic Exercise: 1: seated scifit nustep seat 16, level 2, 5 min 1:1 throughout, subjective collected Skilled Intervention: Patient was educated in proper exercise technique and purpose for exercises. Reviewed and educated patient on additions/changes for home exercise program as above (*). Skilled judgment was used in selection of appropriate interventions. Provided written instruction for home exercise program to facilitate proper performance and compliance. Correct performance of therapeutic exercises was facilitated with verbal, visual, and tactile cuing. Educated patient on rationale for performing exercises in regards to decreasing fatigue , includingbalance, increase ease of ADL, and ROM and function . Patient education as noted. Neuromuscular Re-Education: 1: amb in // bars with turns every 20' (10x) 200' no UE support 2: tandem amb in // barsx 2 UE support 6x 3: walking in // bars 20' 8x, EC x 1 UE support, EO on for turning 4: stepping over hurles fwd 6x6 4 sets 5: stepping over hurdles lat 6x6 4 sets 6: marches on foam 3x30 sec alt x1 UE support (observed reduced sway as sets were repeated) 7: mini squats on foam in // bars x2 UE support 30 sec 2 sets Skilled Intervention: Skilled judgment used to assess appropriate program for balance and coordination activity. Education in proprioceptive/kinesthetic awareness during standing and dynamic activities. Ensured patient safety with use of // bars and gait belt. Reviewed and educated patient on additions/changes for home program as noted above with an (*). Correct performance of home program was facilitated with verbal, visual, and tactile cueing. Patient education as noted. Billing Therapeutic Exercise Treatment Minutes: 5 Neuromuscular Re-Education Treatment Minutes: 35 Skilled Treatment Time Minutes (timed and untimed codes): 40 Total Session Time (minutes): 40 Session Start Time : 1111 Session Stop Time : 1151 Charleen Rocha PT documented in this encounterWilson [facility] Hospital09-12-2024 Telephone encounter Note * Telephone Encounter - Malu Calhoun RN - 01/08/2024 2:39 PM EDT Patient informed of prescription. Malu Calhoun RN [facility]09-12-2024 Miscellaneous Notes* Telephone Encounter - Malu Calhoun RN - 01/08/2024 2:39 PM EDT Patient informed of prescription. Malu Calhoun RN * Telephone Encounter - Raphael Perdomo APRN.CNP - 01/08/2024 1:47 PM EDT The following approved medication requests have been transmitted electronically. Requested Prescriptions Signed Prescriptions Disp Refills letrozole (FEMARA) 2.5 mg tablet 90 tablet 3 Sig: Take 1 tablet by mouth once daily. Authorizing Provider: RAPHAEL PERDOMO APRN.CNP * Telephone Encounter - Malu Calhoun RN - 01/08/2024 9:19 AM EDT Patient called stated she would like to retry Femara instead of anastrozole. Patient aware this nurse will discuss with Raphael and call her back with further instructions. Malu Calhoun RN * Telephone Encounter - Malu Calhoun RN - 01/07/2024 2:41 PM EDT [facility] Care Coordination FOLLOW-UP NOTE Patient identified by name and date of . YES Spoke to patient Summary: (Reason for follow-up) Patient stated she has not had any episodes of emesis or falling since stopping the exemestane. Patient stated she is willing to retry anastrozole or Femara to see if she has as much fatigue or is asking if there is another option. If tamoxifen is an option, she did not seem interested due to the possible risk of blood clots. Care Coordination Plan: Will follow up after speak to Raphael. Malu Calhoun RN January 07, 2024 * Telephone Encounter - Liliane Alcantara - 01/07/2024 12:32 PM EDT Patient called stating she is doing really well since she stopped taking Aromasin. documented in this encounterWilson Memorial Hospital09-12-2024 Telephone encounter Note * Telephone Encounter - Raphael Perdomo APRN.CNP - 01/08/2024 1:47 PM EDT The following approved medication requests have been transmitted electronically. Requested Prescriptions Signed Prescriptions Disp Refills letrozole (FEMARA) 2.5 mg tablet 90 tablet 3 Sig: Take 1 tablet by mouth once daily. Authorizing Provider: RAPHAEL PERDOMO APRN.CNP [facility]09-12-2024 Telephone encounter Note* Telephone Encounter - Malu Calhoun RN - 01/08/2024 9:19 AM EDT Patient called stated she would like to retry Femara instead of anastrozole. Patient aware this nurse will discuss with Raphael and call her back with further instructions. Malu Calhoun RN [facility]09-11-2024 Note* Letter - [facility] - 01/07/2024 9:09 PM EDT January 08, 2024 PID: [id number] Judi Krause [address] [place] [address] Dear Ms. Krause, We are pleased to inform you that the results of your recent breast imaging exam on 01/06/2024 are normal. Breast tissue can be either dense or not dense. Dense tissue makes it harder to find breast cancer on a mammogram and also raises the risk of developing breast cancer. Your breast tissue is not dense. Talk to your healthcare provider about breast density, risks for breast cancer, and your individual situation. Early detection of cancer is very important. We also understand recommendations regarding breast cancer screening are controversial. Please discuss with your primary care provider which strategy is best for you and whether a mammogram is right for you. Your imaging studies and report will be kept on file at [facility] as part of your permanent medical record and are available for your continuing care. Thank you for allowing us to help in meeting your health care needs. Sincerely, Dr. Saunders Interpreting Radiologist [facility] (Normal over 40) [facility]09-11-2024 Miscellaneous Notes* Letter - Coordinator Mammography - 01/07/2024 9:09 PM EDT January 08, 2024 PID: [id number] Judi Krause [address] [place] [address] Dear Ms. Krause, We are pleased to inform you that the results of your recent breast imaging exam on 01/06/2024 are normal. Breast tissue can be either dense or not dense. Dense tissue makes it harder to find breast cancer on a mammogram and also raises the risk of developing breast cancer. Your breast tissue is not dense. Talk to your healthcare provider about breast density, risks for breast cancer, and your individual situation. Early detection of cancer is very important. We also understand recommendations regarding breast cancer screening are controversial. Please discuss with your primary care provider which strategy is best for you and whether a mammogram is right for you. Your imaging studies and report will be [facility] at [facility] as part of your permanent medical record and are available for your continuing care. Thank you for allowing us to help in meeting your health care needs. Sincerely, Dr. Saunders Interpreting Radiologist [facility] (Normal over 40) documented in this encounterWilson Memorial Hospital09-11-2024 Telephone encounter Note * Telephone Encounter - Malu Clahoun RN - 01/07/2024 2:41 PM EDT De Care Coordination FOLLOW-UP NOTE Patient identified by name and date of . YES Spoke to patient Summary: (Reason for follow-up) Patient stated she has not had any episodes of emesis or falling since stopping the exemestane. Patient stated she is willing to retry anastrozole or Femara to see if she has as much fatigue or is asking if there is another option. If tamoxifen is an option, she did not seem interested due to the possible risk of blood clots. Care Coordination Plan: Will follow up after speak to Raphael. Malu Calhoun RN January 07, 2024 [facility] Telephone encounter Note* Telephone Encounter - Liliane Alcantara - 01/07/2024 12:32 PM EDT Patient called stating she is doing really well since she stopped taking Aromasin. [facility] Work Phone: 1(664) 330-268709-10-2024 History of Present illness Narrative* Charleen Rocha, PT - 01/06/2024 1:16 PM EDT Episode Visit Count: 15 Therapist That Will Accept/Oversee The Plan Of Care: Charleen O'Casper Start of Care Date: 09/29/23 Onset Date: 01/22/21 Plan of Care Certification Date: 12/16/23 Next Certification Due Date: 01/27/24 REHABILITATION AND SPORTS THERAPY PHYSICAL THERAPY TREATMENT NOTE ASSESSMENT: Judi Krause tolerated the session with decreased symptoms. She demonstrated improvements in amb without AD in // bars, requiring no UE support with the exception of turning. The patient will continue to benefit from ongoing skilled physical therapy to progress toward set goals. PLAN FOR NEXT VISIT: turns without UE support in // bars SUBJECTIVE: Pt. reports that she has not had chest pain. Patient Goals: improve confidence with stair negociation using x1 HR and SC with or without reciprocal pattern. Functional Limitations: stair negotiation (balance,) Pain: Pain Pain Level: 0 Post Treatment Pain Post Treatment Pain Level: 0 Post Treatment Symptoms: SOB resolves with seated rest, pt. denies pain. OBJECTIVE MEASURES WITH LEVEL OF FUNCTION: TREATMENT: Therapeutic Exercise: 1: seated scifit nustep seat 16, level 2, 5 min 1:1 throughout, subjective collected 2: step ups 6 x1 UE support 2x15 each LE lead (seated rest and water between each set about 30-60 sec) Skilled Intervention: Patient was educated in proper exercise technique and purpose for exercises. Reviewed and educated patient on additions/changes for home exercise program as above (*). Skilled judgment was used in selection of appropriate interventions. Provided written instruction for home exercise program to facilitate proper performance and compliance. Correct performance of therapeutic exercises was facilitated with verbal, visual, and tactile cuing. Patient education as noted. Neuromuscular Re-Education: 1: BOSU ball step ups with BUE support at // bars 2x10 each LE lead (requires seated rest between each set) Skilled Intervention: Skilled judgment used to assess appropriate program for balance and coordination activity. Education in proprioceptive/kinesthetic awareness during standing and dynamic activities. Reviewed and educated patient on additions/changes for home program as noted above with an (*). Correct performance of home program was facilitated with verbal, visual, and tactile cueing. Patient education as noted. Gait Training: Pre gait training: // bars 240' amb without AD, uses x1 UE at // bars to turn every 20' 20' 4x out side of // bars without UE support and PT CGAx1 6x turning 3x each direction every 20' = 80' Distance (feet): 240 Assistive Device: none Assist Level: SBA in // bars without UE support Skilled Intervention: Patient was provided stand by assist during pre-gait/gait training to preventfalls and insure safety. Facilitated proper gait cycle with the use of verbal, visual, and tactile cues for correction of gait deviations identified in the objective section above. Skilled judgment used to assess selection, proper sizing, and proper use of assistive device. Reviewed and educated patient on additions/changes for home program as noted above with an (*). Correct performance of home program was facilitated with verbal, visual, and tactile cueing. Billing Therapeutic Exercise Treatment Minutes: 20 Neuromuscular Re-Education Treatment Minutes: 10 Gait Training Treatment Minutes: 10 Skilled Treatment Time Minutes (timed and untimed codes): 40 Total Session Time (minutes): 40 Session Start Time : 1315 Session Stop Time : 1355 Charleen Rocha PT documented in this encounterWilson [facility] Hospital09-10-2024 History of Present illness Narrative* Lul Sapp Mammo Tech - 01/06/2024 12:50 PM EDT Radiology Service Progress Note PATIENT NAME: Judi Krause DATE OF SERVICE: January 06, 2024 TIME: 1:56 PM PATIENT IDENTITY VERIFICATION COMPLETED USING TWO (2) IDENTIFIERS: Name and Date of confirmedby patient verbally. FALL SCREENING: Has the patient had 2 falls in the last year or 1 fall with injury or currently using an Ambulatory Assistive Device (Walker, Cane, Wheelchair, Crutches, etc.)? No PATIENT GENDER DATA: Female. status: : No status: NO. PATIENT RELEVANT IMPLANT DATA REVIEWED: Not Applicable PATIENT PRESENTS WITH AN IMPLANTABLE OR ATTACHED SPRAYER HAND: No RADIOLOGY DEPARTMENT: Mammography PERIPHERAL IV DATA: Not applicable SIGNED BY: Jose Ribera January 06, 2024 1:56 PM documented in this encounterWilson Memorial Hospital09-05-2024 Telephone encounter Note * Telephone Encounter - Bradford Love APRN.DEFLECTOR OPERATOR - 01/01/2024 12:12 PM EDT ok, schedule please [facility]09-05-2024 Miscellaneous Notes* Telephone Encounter - Bradford Love APRN.CNS - 01/01/2024 12:12 PM EDT ok, schedule please * Telephone Encounter - Birgit Gonzalez LPN - 01/01/2024 11:48 AM EDT Pt called back to check status if this has been signed yet. Routing to [facility] for approval. Birgit Gonzalez LPN * Telephone Encounter - Tosha Lima LPN - 01/01/2024 9:21 AM EDT Patient calling asking for her yearly mamm order, she does 3 D mamm. Pending order to file. Please advise documented in this encounterWilson Memorial Hospital09-05-2024 Telephone encounter Note * Telephone Encounter - Birgit Gonzalez LPN - 01/01/2024 11:48 AM EDT Pt called back to check status if this has been signed yet. Routing to [facility] for approval. Birgit Gonzalez LPN [facility]09-05-2024 Telephone encounter Note* Telephone Encounter - Tosha Lima LPN - 01/01/2024 9:21 AM EDT Patient calling asking for her yearly mamm order, she does 3 D mamm. Pending order to file. Please advise [facility]09-05-20[facility] Telephone encounter Note* Telephone Encounter - Chasity Zuleta MA - 01/01/2024 9:16 AM EDT I called and spoke with Judi regarding her appointment 01/[address] Sepulveda in the breast center. I explained to the patient that her appointment was scheduled incorrectly and needs to be rescheduled. She was last seen by Mrs. Celeste 12/2022. I offered to rescheduled her appointment for tomorrow at the [place] office. Patient declined due to another appointment in [place]. I looked at other locations for her and nothing was available with same day imaging. I offered to place her on thewait list and I would call once something became available. In the meantime, I explained to her that she can get her mammogram order from her PCP so that she can stays on schedule. I will reach out to her once an appointment becomes available. Patient agreed with plan and was appreciative for the call and information. Chasity Zuleta MA [facility]09-05-2024 Miscellaneous Notes* Telephone Encounter - Chasity Zuleta MA - 01/01/2024 9:16 AM EDT I called and spoke with Judi regarding her appointment 01/[address] Sepulveda in the breast center. I explained to the patient that her appointment was scheduled incorrectly and needs to be rescheduled. She was last seen by Mrs. Celeste 12/2022. I offered to rescheduled her appointment for tomorrow at the [place] office. Patient declined due to another appointment in [place]. I looked at other locations for her and nothing was available with same day imaging. I offered to place her on thewait list and I would call once something became available. In the meantime, I explained to her that she can get her mammogram order from her PCP so that she can stays on schedule. I will reach out to her once an appointment becomes available. Patient agreed with plan and was appreciative for the call and information. Chasity Zuleta MA documented in this encounterWilson Memorial Hospital08-28-2024 Telephone encounter Note * Telephone Encounter - Malu Calhoun RN - 12/24/2023 9:00 AM EDT Patient notified of Raphael's response, stated understanding. Malu Calhoun RN [facility]08-28-2024 Miscellaneous Notes* Telephone Encounter - Malu Calhoun RN - 12/24/2023 9:00 AM EDT Patient notified of Raphael's response, stated understanding. Malu Calhoun RN * Telephone Encounter - Angélica Chaney - 12/23/2023 4:59 PM EDT Patient returned call, but Candle Wicker was not available. Please return call to patient. Angélica Chaney * Telephone Encounter - Malu Calhoun RN - 12/23/2023 3:10 PM EDT De Care Coordination FOLLOW-UP NOTE Called patient, no answer, left a VM requesting a call back from patient. Care Coordination Plan: see above Malu Calhoun RN December 23, 2023 * Telephone Encounter - Raphael Perdomo APRN.CNP - 12/23/2023 3:04 PM EDT Noted. Please advise pt. to hold aromasin for next 2 weeks and call pt. for an update on her symptoms. Pt. needs to continue follow up with her PCP. When pt. was last seen in August her blood sugar was high-473 and she had not started metformin yet. 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 On Aromasin, started 12/16/22. Assessment: 12/08/23, 3 episodes emesis 12/11/23 was outside sweeping and fell into her [place]. 11/1623- Fell while walking into the eye center. 12/13/23 had multiple episode of emesis. 12/15/23 cancelled her rehab appointment because she felt sick but never threw up. 12/14/23 or 12/15/23 patient discontinued Aromasin and stated she has not had any falls or emesis andshe feels better since discontinuing the medication. Patient stated there were 3 other episodes where she felt odd or lightheaded and felt like she needed to sit down. These episodes occurred within the last 4 months. Patient stated her BP has been good however she does not check it at home. Patient drinks 4-5+ cups of water daily. Denies vertigo/spinning, dizziness, or headaches, Visual changes: Patient stated she saw black spots with silver the other day. Patient had her eyes examined on 12/11 and everything was normal. Heartburn: yes depends on what I eat, maybe twice a week. Takes Pepto Bismol with relief. Gait: balance has been bad, ever since they did that one thing with my aneurysm three years ago, stated her balance has improved but is still not back to normal. Per patient she used to walk like I was drunk Diabetes: does not check blood sugar at home. Denies recent illnesses, URI, colds, ear pain, etc. Medication list updated. Patient stated she did not take the Aromasin consistently each day, just when she would be rememberto take it during the day. Patient stated she never took Aromasin on an empty stomach. Recommendations: Per RNCC, will speak to [place]. Patient is asking if she should resume the medication or continue holding. Malu Calhoun RN December 23, 2023 9:53 AM * Telephone Encounter - Caryn Hernandez LPN - 12/22/2023 1:34 PM EDT Patient has been on Aromasin since 12/16/2022. Vomiting began 12/08/2023, 3 episodes. Vomited again 12/13/2023 several times. Also c/o falling twice that week. Patient gets heartburn about twice a week and takes Pepto Bismol. Also c/o some fatigue but that is improving. Denies dizziness or headaches. Patient stopped taking Aromasin on 12/15/2023. No vomiting or falling since. Denies starting any new medications. Caryn Hernandez LPN * Telephone Encounter - Liliane Alcantara - 12/22/2023 12:45 PM EDT Patient called stating that she quit taking Aromasin 8 days ago due to vomiting. She read that she is to take the medication the same time every day and states she was not. She is asking if this is possibly what was making her sick. [facility] Telephone encounter Note * Telephone Encounter - Angélica Chaney - 12/23/2023 4:59 PM EDT Patient returned call, but Candle Wicker was not available. Please return call to patient. Angélica Chaney [facility]08-[facility] Telephone encounter Note* Telephone Encounter - Malu Calhoun RN - 12/23/2023 3:10 PM EDT [place] Care Coordination FOLLOW-UP NOTE Called patient, no answer, left a VM requesting a call back from patient. Care Coordination Plan: see above Malu Calhoun RN December 23, 2023 [facility] Telephone encounter Note* Telephone Encounter - Raphael Perdomo APRN.CNP - 12/23/2023 3:04 PM EDT Noted. Please advise pt. to hold aromasin for next 2 weeks and call pt. for an update on her symptoms. Pt. needs to continue follow up with her PCP. When pt. was last seen in August her blood sugar was high-473 and she had not started metformin yet. Raphael Perdomo APRN.CNP [facility]08-[facility] Telephone encounter Note* Telephone Encounter - Bradford Love APRN.CNS - 12/23/2023 2:13 PM EDT Noted. [facility]08-27-2024 Miscellaneous Notes* Telephone Encounter - Bradford Love APRN.CNS - 12/23/2023 2:13 PM EDT Noted. * Telephone Encounter - Salome Perez MSW - 12/23/2023 1:56 PM EDT Rachid called and spoke with patient daughter Sade. Rachid noted that she has not found Medicare to pay for medical alert button. Medicaid often times will if someone is on Passport/Medicaid Waiver program. Rachid noted [facility] has listing of medical alert button options. Rachid provided daughter with [facility] [employer] number [phone] to call and see about medical alert button listing. Sade thanked Rachid for the call and notes that she will reach out to [facility] [employer]. * Telephone Encounter - Birgit Gonzalez LPN - 12/23/2023 9:50 AM EDT Daughter notified and routing this to RACHID Mcmahon to call daughter to give help on how to order and where to go for this. Birgit Gonzalez LPN * Telephone Encounter - Bradford Love APRN.DEFLECTOR OPERATOR - 12/22/2023 12:26 PM EDT Do not think these are covered but she can try. Order in. * Telephone Encounter - Birgit Gonzalez LPN - 12/22/2023 11:56 AM EDT Daughter Sade called to request for pt a Med Alert RX. Pt was just seen in the office on 12/19/23 and was to mention this but forgot. Daughter not sure who this should go to but trying to get Insurance to cover this. Please advise daughter. Birgit Gonzalez LPN documented in this encounterWilson [facility] Hospital08-27-[facility] Telephone encounter Note * Telephone Encounter - Salome Perez MSW - 12/23/2023 1:56 PM EDT Rachid called and spoke with patient daughter Sade. Rachid noted that she has not found Medicare to pay for medical alert button. Medicaid often times will if someone is on Passport/Medicaid Waiver program. Rachid noted [facility] AAA has listing of medical alert button options. Rachid provided daughter with [facility] AAA number [phone] to call and see about medical alert button listing. Sade thanked Rachid for the call and notes that she will reach out to [facility] [employer]. 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 On Aromasin, started 12/16/22. Assessment: 12/08/23, 3 episodes emesis 12/11/23 was outside sweeping and fell into her dumont. 11/1623- Fell while walking into the eye center. 12/13/23 had multiple episode of emesis. 12/15/23 cancelled her rehab appointment because she felt sick but never threw up. 12/14/23 or 12/15/23 patient discontinued Aromasin and stated she has not had any falls or emesis andshe feels better since discontinuing the medication. Patient stated there were 3 other episodes where she felt odd or lightheaded and felt like she needed to sit down. These episodes occurred within the last 4 months. Patient stated her BP has been good however she does not check it at home. Patient drinks 4-5+ cups of water daily. Denies vertigo/spinning, dizziness, or headaches, Visual changes: Patient stated she saw black spots with silver the other day. Patient had her eyes examined on 12/11 and everything was normal. Heartburn: yes depends on what I eat, maybe twice a week. Takes Pepto Bismol with relief. Gait: balance has been bad, ever since they did that one thing with my aneurysm three years ago, stated her balance has improved but is still not back to normal. Per patient she used to walk like I was drunk Diabetes: does not check blood sugar at home. Denies recent illnesses, URI, colds, ear pain, etc. Medication list updated. Patient stated she did not take the Aromasin consistently each day, just when she would be rememberto take it during the day. Patient stated she never took Aromasin on an empty stomach. Recommendations: Per RNCC, will speak to [place]. Patient is asking if she should resume the medication or continue holding. Malu Calhoun RN December 23, 2023 9:53 AM [facility]08-[facility] Telephone encounter Note* Telephone Encounter - Birgit Gonzalez LPN - 12/23/2023 9:50 AM EDT Daughter notified and routing this to RACHID Mcmahon to call daughter to give help on how to order and where to go for this. Birgit Gonzalez LPN T [facility]08-26-2024 Telephone encounter Note* Telephone Encounter - Caryn Hernandez LPN - 12/22/2023 1:34 PM EDT Patient has been on Aromasin since 12/16/2022. Vomiting began 12/08/2023, 3 episodes. Vomited again 12/13/2023 several times. Also c/o falling twice that week. Patient gets heartburn about twice a week and takes Pepto Bismol. Also c/o some fatigue but that is improving. Denies dizziness or headaches. Patient stopped taking Aromasin on 12/15/2023. No vomiting or falling since. Denies starting any new medications. Caryn Hernandez LPN [facility]08-[facility] Telephone encounter Note* Telephone Encounter - Liliane Alcantara - 12/22/2023 12:45 PM EDT Patient called stating that she quit taking Aromasin 8 days ago due to vomiting. She read that she is to take the medication the same time every day and states she was not. She is asking if this is possibly what was making her sick. [facility] Work Phone: [phone] Telephone encounter Note* Telephone Encounter - Bradford Love APRN.CNS - 12/22/2023 12:26 PM EDT Do not think these are covered but she can try. Order in. [facility]08[facility] Telephone encounter Note* Telephone Encounter - Birgit Gonzalez LPN - 12/22/2023 11:56 AM EDT Daughter Sade called to request for pt a Med Alert RX. Pt was just seen in the office on 12/19/23 and was to mention this but forgot. Daughter not sure who this should go to but trying to get Insurance to cover this. Please advise daughter. Birgit Gonzalez LPN [facility]08-[facility] Telephone encounter Note* Telephone Encounter - Bradford Love APRN.CNS - 12/19/2023 11:03 AM EDT note below. [facility]08-[facility] Miscellaneous Notes* Telephone Encounter - Bradford Love APRN.CNS - 12/19/2023 11:03 AM EDT note below. * Telephone Encounter - Angélica Parkinson RN - 12/19/2023 8:46 AM EDT Patient's Daughter Sade calls and states that she does not think that patient knows what diabetesshe has or about Hbg A1C meaning. Patient takes a cancer medicine that she is supposed to take at acertain time of day. Patient does not always take medication right. Sade asking if there is someone that can go over all of her medications with the patient? Sade states that patient has been passing out when walking. Patient has been feeling nausea as well as had issues with vomiting. Daughter asking about life alert. Daughter asking if there are resources to help her mom get this? Daughter is not wanting patient to know that she called. Patient has appointment with provider today. Please review and advise, Angélica Parkinson RN documented in this encounterWilson [facility] Hospital08-23-2024 History of Present illness Narrative* Bradford Love, FILM AND VIDEO EDITOR.DEFLECTOR OPERATOR - 12/19/2023 11:00 AM EDT SUBJECTIVE: Diabetic Foot Exam Never done DTaP,Tdap,Td Vaccine(1 - Tdap) Never done Shingrix Vaccine(1 of 2) Never done RSV Vaccine(1 - 1-dose 60+ series) Never done Pneumococcal Vaccine: 65+(2 of 2 - PCV) due on 05/04/2015 Covid-19 Vaccine(2022- season) due on 12/27/2022 HPI Judi Krause is a 78 year old female. PMH significant for ACTIVE PROBLEM LIST Reactive Depression Generalized Anxiety Disorder Osteoporosis, Unspecified Diffuse Cystic Mastopathy Ocular migraine Mixed Hyperlipidemia Vitamin D Deficiency Abnormal Pap Smear of Vagina Edema of Both Legs Venous Insufficiency (Chronic) (Peripheral) Gerd (Gastroesophageal Reflux Disease) Dupuytren's Contracture Infiltrating Ductal Carcinoma of Left Breast ([facility]) Primary Osteoarthritis of Right Knee Status Post Right Knee Replacement Type 2 Diabetes Mellitus With Diabetic Neuropathy, Without Long-Term Current Use of Insulin ([facility]) History of Cva (Cerebrovascular Accident) Dyspepsia Closed Fracture of Ankle Disorder of Tendon of Posterior Tibial Muscle Hammer Toe Insomnia Normochromic Normocytic Anemia Orthostatic Hypotension Posterior Tibial Tendinitis of Right Lower Extremity Primary Generalized Hypertrophic Osteoarthrosis Retention of Urine Walking Difficulty Due to Ankle and Foot Hypertension Physical Debility Complaints of Leg Weakness Gait Difficulty Presents today for a routine follow-up visit. See telephone call earlier today from daughter about falls/passing out and concerns regarding medication management and a possible life alert. Judi Krause relates 2 falls in the recent past. She reports recently falling into a dumont. Does not know if she lost consciousness. Relates no prodrome. Does not recall stumbling or tripping. She just noticed that she was in the dumont. No injury. She subsequently reports a fall when she was going to a doctor's appointment. She reports falling forward. She reports did not lose consciousness with this. She reports no amaurosis fugax. No change in vision or darkening of vision prior to these episodes.No chest pain, palpitations, dizziness, lightheadedness, presyncope. Mild chronic left ankle edema.She notes shortness of breath on exertion otherwise no shortness of breath. She notes nausea and vomiting x 2 since last seen. Thinks it may be Aromasin so she stopped taking it. She has not yet let hematology oncology providers know. She is followed by Raphael Perdomo hematology oncology for breast cancer. Has been seen by Dr. Jones neurosurgery regarding known residual aneurysm. MRA was completed 2022. He recommended an MRA, this was completed. Follow up CTA at 2 years recommended to avoid significant artifact. She notes abnormal sensation in her fingers and hands has been helped significantly with the increased dose of nortriptyline. No longer bothersome at all. She notes ringing in her years. May have some decreased hearing. No headache. No prior hearing check is reported. HTN: Without report of headache, chest pain, palpitations, dyspnea, peripheral edema, orthopnea, fatigue, and PND. Last 14 Encounter BP Readings: Date: BP: 09/05/2023 124/72 05/26/2023 122/80 04/03/2023 123/76 03/24/2023 137/83 02/24/2023 121/78 10/18/2022 114/70 10/03/2022 102/80 06/27/2022 110/70 05/24/2022 104/71 04/18/2022 118/69 03/28/2022 104/68 11/21/2021 121/81 10/23/2021 116/66 10/17/2021 122/64 DIABETES MELLITUS: Without report of excessive thirst or increased frequency of urination, chest pain or dyspnea , numbness, tingling or pain in extremities, new or unusual visual symptoms, low sugar/hypoglycemic reactions, weight loss/gain, lightheadedness/dizziness, and bowel changes/loose stools. . Patient's last HgA1C was Hemoglobin A1C (%) Date Value 12/09/2023 7.3 06/25/2023 8.2 01/08/2021 6.8 08/01/2020 6.8 ) She notes bilateral leg weakness. Some trouble going up stairs. She thinks physical therapy may be helping somewhat. She reports independence in daily activities. She reports she did not know she needed to take medications at the same time every day. States no interest in pill pack or similar medication management system at this time. Notes independent in her daily activities. Gets some help with housework otherwise independent in IADLs. Review of Systems Constitutional: Negative. Objective BP 118/71 Pulse 87 Resp 16 Wt 67.7 kg (149 lb 4 oz) BMI 26.44 kg/m Physical Exam Vitals and nursing note reviewed. Constitutional: Appearance: Normal appearance. HENT: Head: Normocephalic and atraumatic. Eyes: Conjunctiva/sclera: Conjunctivae normal. Neck: Thyroid: No thyroid mass or thyromegaly. Cardiovascular: Rate and Rhythm: Normal rate and regular rhythm. Pulses: Carotid pulses are 2+ on the right side and 2+ on the left side. Radial pulses are 2+ on the right side and 2+ on the left side. Heart sounds: Normal heart sounds. Pulmonary: Effort: Pulmonary effort is normal. Breath sounds: Normal breath sounds. Abdominal: General: Bowel sounds are normal. Palpations: Abdomen is soft. Musculoskeletal: Right lower leg: No edema. Left lower leg: No edema. Skin: General: Skin is warm and dry. Neurological: Mental Status: She is alert. Mental status is at baseline. ALLERGIES Allergen Reactions Codeine GI Upset Morphine GI Upset Prozac [Fluoxetine] Intolerance nervousness Medications exemestane (AROMASIN) 25 mg tablet TAKE 1 TABLET BY MOUTH EVERY DAY AFTER a MEAL nortriptyline (PAMELOR) 50 mg capsule Take 2 capsules by mouth daily at bedtime. losartan (COZAAR) 50 mg tablet Take 1 tablet by mouth once daily. metFORMIN (GLUCOPHAGE) 500 mg tablet Take 1 tablet by mouth daily with breakfast. For blood sugar. Do not take this medicine if you are not eating. zolpidem (AMBIEN) 10 mg Take 0.5-1 tablets by mouth at bedtime as needed (insomnia) for up to 14 days. aspirin, enteric coated (ASPIRIN, ENTERIC COATED) 81 mg EC tablet Take 81 mg by mouth once daily. Cholecalciferol, Vitamin D3, 125 mcg (5,000 unit) cap Take 5,000 Units by mouth once daily. (Patient not taking: Reported on 09/05/2023) cyanocobalamin (VITAMIN B-12) 100 mcg tab Take 100 mcg by mouth once daily. (Patient not taking: Reported on 09/05/2023) [id number] (GLUCOSAMINE CHONDROITIN PLUS) [id number] mg cap Take 1 capsule by mouth once daily. (Patient not taking: Reported on 12/10/2023) PAST MEDICAL HISTORY No date: Anatomical narrow angle glaucoma No date: Aneurysm (HCC) Comment: 4 ruptured No date: BCC (basal cell carcinoma), trunk Comment: chest; Dr. To Zuleta (derm) treated 07/25/16 biopsy followed by cryo No date: Benign neoplasm of colon No date: Degeneration of intervertebral disc, site unspecified No date: Depressive disorder, not elsewhere classified Comment: Depression (non-psychotic) No date: Disorder of bone and cartilage, unspecified No date: Dysfunction of eustachian tube No date: Essential hypertension, benign No date: Generalized anxiety disorder Comment: Anxiety, Generalized No date: Internal hemorrhoids without mention of complication No date: Lumbago No date: Nonspecific abnormal finding in stool contents No date: Ocular migraine No date: Osteoporosis, unspecified No date: Type 2 diabetes mellitus without complication, without long- term current use of insulin (HCC) No date: Unspecified constipation No date: Unspecified essential hypertension No date: Varicose veins of other sites Social History Tobacco Use Smoking status: Never Smokeless tobacco: Never Vaping Use Vaping status: Never Used Substance Use Topics Alcohol use: No Drug use: Never The 10-year ASCVD risk score (Natividad DK, et al., 2019) is: 36.9% Values used to calculate the score: Age: 78 years Sex: Female Is Non- : No Diabetic: Yes Tobacco smoker: No Systolic Blood Pressure: 118 mmHg Is BP treated: Yes HDL Cholesterol: 32 mg/dL Total Cholesterol: 180 mg/dL Latest Ref Rng 11/18/2022 03/24/2023 06/25/2023 09/10/2023 12/09/2023 WBC 3.70 - 11.00 k/uL 7.62 7.29 RBC 3.90 - 5.20 m/uL 4.93 4.93 Hemoglobin 11.5 - 15.5 g/dL 15.0 15.0 Hematocrit 36.0 - 46.0 % 46.0 44.7 MCV 80.0 - 100.0 fL 93.3 90.7 MCH 26.0 - 34.0 pg 30.4 30.4 MCHC 30.5 - 36.0 g/dL 32.6 33.6 RDW-CV 11.5 - 15.0 % 12.7 12.8 Platelet Count 150 - 400 k/uL 361 350 MPV 9.0 - 12.7 fL 8.9 (L) 8.5 (L) Neut% % 67.1 Abs Neut (ANC) 1.45 - 7.50 k/uL 5.12 Lymph% % 21.0 Abs Lymph 1.00 - 4.00 k/uL 1.60 Thayer% % 8.3 Abs Thayer <0.87 k/uL 0.63 Eosin% % 2.8 Abs Eosin <0.46 k/uL 0.21 Baso% % 0.4 Abs Baso <0.11 k/uL 0.03 Immature Gran % % 0.4 IMMATURE GRANS (ABS) <0.10 k/uL 0.03 NRBC /100 WBC 0.0 Absolute nRBC <0.01 k/uL <0.01 <0.01 DTYPE Auto Protein, Total 6.3 - 8.0 g/dL 7.1 7.2 Albumin 3.9 - 4.9 g/dL 4.2 4.2 Calcium 8.5 - 10.2 mg/dL 10.3 (H) 10.2 9.8 9.6 Bilirubin, Total 0.2 - 1.3 mg/dL 0.3 0.4 Alkaline Phosphatase 34 - 123 U/L 49 46 AST 13 - 35 U/L 27 24 ALT 7 - 38 U/L 19 21 Glucose 74 - 99 mg/dL 136 (H) 152 (H) 179 (H) 473 (H) BUN 7 - 21 mg/dL 13 19 20 21 Creatinine 0.58 - 0.96 mg/dL 0.86 0.83 0.87 0.76 Sodium 136 - 144 mmol/L 139 137 136 134 (L) Potassium 3.7 - 5.1 mmol/L 4.3 4.1 4.7 4.4 Chloride 97 - 105 mmol/L 100 100 99 97 CO2 22 - 30 mmol/L 24 29 25 27 Anion Gap 9 - 18 mmol/L 15 8 (L) 12 10 eGFR >=60 mL/min/1.73m 70 73 69 81 Cholesterol, Total <200 mg/dL 180 Triglyceride <150 mg/dL 226 (H) HDL Cholesterol >39 mg/dL 32 (L) Non HDL Cholesterol <130 mg/dL 148 (H) Fasting Time hrs 13 VLDL Cholesterol <30 mg/dL 45 (H) TC:HDL Ratio <5.10 5.63 (H) LDL Cholesterol <100 mg/dL 103 (H) LDL:HDL Ratio <2.54 3.22 (H) Creatinine, Ur Random (UCRR) 20.0 - 300.0 mg/dL 88.4 Albumin, Urine Random mg/L 23.4 Albumin/Creat Ratio <30 mg/g 26 Hemoglobin A1C 4.3 - 5.6 % 6.8 (H) 7.2 (H) 8.2 (H) 7.3 (H) Estimated Average Glucose mg/dL 148 160 189 163 Vitamin D 25 Hydroxy 31.0 - 80.0 ng/mL 43.4 34.5 ASSESSMENT/PLAN: 1. Hypertension - ICD9: 401.9, ICD10: I10 (primary diagnosis) Currently well controlled Continues on losartan. - Continue current medications - Encouraged sodium restriction, DASH or Mediterranean diet - Recommend regular aerobic exercise - ECHO - PERFLUTREN LIPID MICROSPHERES 1.1 MG/ML INJECTION IN NS 10 ML - SODIUM CHLORIDE 0.9 % (FLUSH) INJECTION SYRINGE 2. Syncope, unspecified syncope type - ICD9: 780.2, ICD10: R55 She reports 2 falls in the recent past. Thinks she may have passed out for 1 of these episodes. No loss of bowel or bladder. No prodrome is noted. She is without chest pain. Shortness of breath only with exertion. No palpitations. Notes eating and drinking normally. Recommend echocardiogram for further evaluation at this time. - ECHO 3. Type 2 diabetes mellitus with diabetic neuropathy, without long-term current use of insulin (HCC) - ICD9: 250.60, 357.2, ICD10: E11.40 Improved control on metformin. Continue with once daily dosing, take with breakfast. - Continue current medications - Counseled on healthy diet and regular exercise - HEMOGLOBIN A1C 4. 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 5. Encounter for immunization - ICD9: V03.89, ICD10: Z23 - [employer] PRINTED PHARMACY INSTRUCTIONS - [employer]INTED [employer]ARM[employer]Y INSTRUCTIONS 6. Tinnitus of both ears - ICD9: 388.30, ICD10: H93.13 She notes tinnitus, some decrease in hearing. No prior hearing evaluation. Concern for possible drug effect as well. Recommend evaluation to begin with. Make additional changes as appropriate. Declines changes in amitriptyline today. - CONSULT TO ENT 7. 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) - ICD9: 174.9, ICD10: C50.912 By hematology oncology. Reports stopping Aromasin due to concern for nausea. Has not yet advised prescribing providers. 8. Complaints of leg weakness - ICD9: 729.89, ICD10: R29.898 She notes 2 falls of late. Has been going to physical therapy. Endorse continued PT and HEP continue to monitor. Not interested in pill pack at this time. She will let us know if she changes her mind in the future. Daughter noted interest in life alert or similar. Message sent via [employer]. Keep appointment with PCP in February. Will route chart to hematology oncology so they are aware not currently taking Aromasin. Bradford Love APRN.DEFLECTOR OPERATOR Medical Decision Making: Problems: Moderate: New problem with uncertain prognosis and 2+ stable chronic illnesses Data: Unique test result(s) reviewed: 3+ Unique test(s) ordered: 1 Risk: Moderate: Drug management Medical Decision Making Level: 4 - Moderate documented in this encounterWilson [facility]08-[facility] Telephone encounter Note * Telephone Encounter - Angélica Parkinson RN - 12/19/2023 8:46 AM EDT Patient's Daughter Sade calls and states that she does not think that patient knows what diabetesshe has or about Hbg A1C meaning. Patient takes a cancer medicine that she is supposed to take at acertain time of day. Patient does not always take medication right. Sade asking if there is someone that can go over all of her medications with the patient? Sade states that patient has been passing out when walking. Patient has been feeling nausea as well as had issues with vomiting. Daughter asking about life alert. Daughter asking if there are resources to help her mom get this? Daughter is not wanting patient to know that she called. Patient has appointment with provider today. Please review and advise, Angélica Parkinson RN [facility]08-20-[facility] History of Present illness Narrative* Charleen Rocha, PT - 12/16/2023 5:49 PM EDT Images from the original note were not included. Episode Visit Count: 14 Therapist That Will Accept/Oversee The Plan Of Care: Charleen Rocha Start of Care Date: 09/29/23 Onset Date: 01/22/21 Plan of Care Certification Date: 12/16/23 Next Certification Due Date: 01/27/24 REHABILITATION AND SPORTS THERAPY PHYSICAL THERAPY PROGRESS REPORT PLAN OF CARE UPDATE: Assessment: Judi Krause demonstrates improvements in stair negotiation. She has progressed toward goals. Patient continues to present with impairments in ADL's, balance, flexibility, gait, independence in exercise, joint mobility, overall function, patient reported outcome measures, strength, and symptom management that interfere with stair negotiation (balance,) . Current prognosis is Good due to: positive past response to therapy . She will benefit from continued skilled therapy services to meet the updated goals for this plan of care as noted below. Goals for Episode of Care: created on 09/29/23 through 11/10/23 Goals updated on 11/03/2023 through 12/14/23 Goals updated on 11/26/2023 through 12/14/13 Goals updated on 12/16/2023 through 01/27/24 Patient will report no falls. -- MET Improve score on Timed Up and Go Test to 10 or less seconds using AD to reflect decreased fall risk. -- PROGRESSING, 12 sec with SC Improve score on 30 Second Chair Stand to 10 or more repetitions to reflect decreased fall risk. -- MET, 11 reps [place] in home exercise program including cardiovascular exercise. Patient will demonstrate independent and proper use of assisstive device to allow for improved walking quality and safety therefore reducing the risk of falls. -- MET Patient Goals: amb in her neighborhood or at the rec center with AD for 10-15 minutes -- MET NEW GOAL 11/03/23 score -- PARTIALLY MET Patient Goals: improve confidence with stair negociation using x1 HR and SC with or without reciprocal pattern. Planned Interventions, Frequency, and Duration: 1x/week, 6 weeks Total Number of Visits Planned: 6 Patient to be seen for Gait Training (56361), Self-fdc management (74953), Therapeutic activities (82107), Manual therapy (74596), Neuromuscular re- education (47059), Therapeutic exercise (12799) PLAN FOR NEXT VISIT: amb in // bars without AD SUBJECTIVE: 2 falls since last visit. She attributes this to her meds. required assistance to standafter each incident outdoors entering a building.. Patient Goals: improve confidence with stair negociation using x1 HR and SC with or without reciprocal pattern. Functional Limitations: stair negotiation (balance,) Pain: Post Treatment Pain Post Treatment Pain Level: 0 PROMIS Scales 12/16/2023 11/19/2023 10/29/2023 Higher is Better Phys Func - Score 33 (moderate dysfunction) 33 (moderate dysfunction) Phys Func - Percentile 4 4 Self-Eff Symptom - Score 45 (Average) Self-Eff Symptom - Percentile 31 T-scores: mean of general population = 50. 5 points is clinically meaningfully difference Percentiles provide an indication of how the patient's score ranks in relation to the general population. Higher percentile rankings indicate better function/quality of life. 50th percentile is the average of the general population and indicates half of respondents had a worse score. OBJECTIVE MEASURES WITH LEVEL OF FUNCTION: Functional Performance Test Results Timed Up and Go (sec): 13 sec Timed Up and Go - Condition 2 (sec) : 13 Dynamic Gait Index Gait level surface : 2 - Mild impairment- walks 20' uses assist device, slower speed, mild gait deviation Change in gait speed: 2 - Mild impairment- is able to change speed but demonstrates mild gait deviations or no gait deviations but unable to achieve a significant change in velocity, or uses an assistive device Gait and horizontal head turns: 2 - Mild impairment- performs R/L head turns smoothly with slight change in gait velocity, minor disruption to smooth gait path or uses assistive device Gait and vertical head turns: 2 - Mild impairment- performs up/ down head turns smoothly with slight change in gait velocity, minor disruption to smooth gait path or uses assistive device Gait and pivot: 2 - Mild impairment- pivot turns safely in >3 sec, stops, no loss of balance Step over obstacle: 2 - Mild impairment- is able to step over box, but must slow down and adjust steps to clear box Step around obstacle: 2 - Mild impairment- able to step around both cones, must slow down and adjust steps to clear cones Steps: 1 - Moderate impairment- 2 feet to a stair, must use rail Dynamic Gait Index Total: 15 TREATMENT: Therapeutic Exercise: 1: seated scifit nustep seat 16, level 2, 5 min 1:1 throughout, subjective collected 2: hip ext BUE support 2x15 each side 3: hip ext BUE support 2x15 each side Skilled Intervention: Patient was educated in proper exercise technique and purpose for exercises. Reviewed and educated patient on additions/changes for home exercise program as above (*). Skilled judgment was used in selection of appropriate interventions. Provided written instruction for home exercise program to facilitate proper performance and compliance. Correct performance of therapeutic exercises was facilitated with verbal, visual, and tactile cuing. Educated patient on rationale for performing exercises in regards to decreasing fatigue , includingbalance, increase ease of ADL, and ROM and function . Patient education as noted. Neuromuscular Re-Education: 1: DGI 2: TUG test 2x with SC 13 sec each trial Skilled Intervention: Skilled judgment used to assess appropriate program for balance and coordination activity. Education in proprioceptive/kinesthetic awareness during standing and dynamic activities. Ensured patient safety with use of // bars and SC. Reviewed and educated patient on additions/changes for home program as noted above with an (*). Correct performance of home program was facilitated with verbal, visual, and tactile cueing. Patient education as noted. Billing Therapeutic Exercise Treatment Minutes: 15 Neuromuscular Re-Education Treatment Minutes: 25 Skilled Treatment Time Minutes (timed and untimed codes): 40 Total Session Time (minutes): 40 Session Start Time : 1748 Session Stop Time : 1828 Charleen Rocha PT [place] [id number] History of Present illness Narrative* Charleen Rocha, PT - 12/08/2023 12:29 PM EDT Episode Visit Count: 13 Therapist That Will Accept/Oversee The Plan Of Care: Charleen Lizette Start of Care Date: 09/29/23 Onset Date: 01/22/21 Plan of Care Certification Date: 11/26/23 Next Certification Due Date: 12/15/23 REHABILITATION AND SPORTS THERAPY PHYSICAL THERAPY TREATMENT NOTE ASSESSMENT: Judi Krause tolerated the session with decreased symptoms. She demonstrated difficulty with stepping fwd over 6 karla resulting in LOB due to tipping karla, but recovered without fall with PT assist [id number] . The patient will continue to benefit from ongoing skilled physical therapy to progress toward set goals. PLAN FOR NEXT VISIT: core stabilization strengthening seated and progressing to standing as balance allows SUBJECTIVE: denies falls. Would like to work on core strengthening. Functional Limitations: stair negotiation (balance,) Pain: Pain Pain Level: 0 OBJECTIVE MEASURES WITH LEVEL OF FUNCTION: TREATMENT: Therapeutic Exercise: 1: seated [employer] nustep seat 16, level 2, 5 min 1:1 throughout, subjective collected Skilled Intervention: Patient was educated in proper exercise technique and purpose for exercises. Skilled judgment was used in selection of appropriate interventions. Correct performance of therapeutic exercises was facilitated with verbal, visual, and tactile cuing. Educated patient on rationale for performing exercises in regards to decreasing fatigue , includingbalance, increase ease of ADL, and ROM and function . Patient education as noted. Neuromuscular Re-Education: 1: lateral stepping over single 6 karla 2x20 2: fwd stepping over single 6 karla 10x R and 10x L (LOB 1x and required PT max assist recovery without fall) 3: BOSU ball tapping with alt LE's using SC 2x20 4: airex pad, romberg 30 sec EO 5: airex pad, romberg 30 sec EC, 2 sets (no LOB, just anxious and reaches forward often) Skilled Intervention: Skilled judgment used to assess appropriate program for balance and coordination activity. Education in proprioceptive/kinesthetic awareness during standing. Ensured patient safety with use of // bars and SC Reviewed and educated patient on additions/changes for home program as noted above with an (*). Patient education as noted. Billing Therapeutic Exercise Treatment Minutes: 5 Neuromuscular Re-Education Treatment Minutes: 33 Skilled Treatment Time Minutes (timed and untimed codes): 38 Total Session Time (minutes): 38 Session Start Time : 1222 Session Stop Time : 1300 Charleen Rocha PT documented in this encounterWilson [facility] History of Present illness Narrative* Charleen Rocha PT - 11/26/2023 11:47 AM EDT Images from the original note were not included. Episode Visit Count: 12 Therapist That Will Accept/Oversee The Plan Of Care: Charleen Rocha Start of Care Date: 09/29/23 Onset Date: 01/22/21 Plan of Care Certification Date: 11/26/23 Next Certification Due Date: 12/15/23 REHABILITATION AND SPORTS THERAPY PHYSICAL THERAPY PROGRESS REPORT PLAN OF CARE UPDATE: Assessment: Judi Krause demonstrates improvements in rising from a chair, walking in the community, and stair negotiation. She has progressed toward goals. Patient continues to present with impairments in ADL's, balance, gait, independence in exercise, overall function, and patient reported outcome measuresthat interfere with stair negotiation (balance,) . Current prognosis is Good due to: positive past response to therapy . She will benefit from continued skilled therapy services to meet the updated goals for this plan of care as noted below. Goals for Episode of Care: created on 09/29/23 through 11/10/23 Goals updated on 11/03/2023 through 12/14/23 Goals updated on 11/26/2023 through Patient will report no falls. -- MET Improve score on Timed Up and Go Test to 10 or less seconds using AD to reflect decreased fall risk. -- PROGRESSING, 13 sec with SC Improve score on 30 Second Chair Stand to 10 or more repetitions to reflect decreased fall risk. -- MET, 11 reps [place] in home exercise program including cardiovascular exercise. Patient will demonstrate independent and proper use of assisstive device to allow for improved walking quality and safety therefore reducing the risk of falls. -- MET Patient Goals: amb in her neighborhood or at the [facility] with AD for 10-15 minutes -- MET NEW GOAL 11/03/23 score -- PROGRESSING Patient Goals: improve confidence with stair negociation using x1 HR and SC with or without reciprocal pattern. Planned Interventions, Frequency, and Duration: 2x/week, 3 weeks Total Number of Visits Planned: 6 Patient to be seen for Gait Training (63886), Self-fdc management (07804), Therapeutic activities (75440), Manual therapy (72315), Neuromuscular re- education (57136), Therapeutic exercise (87179) PLAN FOR NEXT VISIT: Pt. requests to only schedule for 2 additional visits, 2x/wk SUBJECTIVE: denies falls. Pt. wants to schedule x2 more visits. Does not notice substantial change in balance, continues to have difficulty wtih stairs.. Patient Goals: improve confidence with stair negociation using x1 HR and SC with or without reciprocal pattern. Functional Limitations: stair negotiation (balance,) Pain: Pain Pain Level: 0 PROMIS Scales 11/19/2023 10/29/2023 09/29/2023 Higher is Better Phys Func - Score 33 (moderate dysfunction) 36 (moderate dysfunction) Phys Func - Percentile 4 8 Self-Eff Symptom - Score 45 (Average) 44 (Average) Self-Eff Symptom - Percentile 31 27 T-scores: mean of general population = 50. 5 points is clinically meaningfully difference Percentiles provide an indication of how the patient's score ranks in relation to the general population. Higher percentile rankings indicate better function/quality of life. 50th percentile is the average of the general population and indicates half of respondents had a worse score. OBJECTIVE MEASURES WITH LEVEL OF FUNCTION: Functional Performance Test Results 30 Second Chair Stand Test: 11 reps Timed Up and Go (sec): 13 sec Timed Up and Go - Condition 2 (sec) : 13 Dynamic Gait Index Gait level surface : 2 - Mild impairment- walks 20' uses assist device, slower speed, mild gait deviation Change in gait speed: 2 - Mild impairment- is able to change speed but demonstrates mild gait deviations or no gait deviations but unable to achieve a significant change in velocity, or uses an assistive device Gait and horizontal head turns: 2 - Mild impairment- performs R/L head turns smoothly with slight change in gait velocity, minor disruption to smooth gait path or uses assistive device Gait and vertical head turns: 2 - Mild impairment- performs up/ down head turns smoothly with slight change in gait velocity, minor disruption to smooth gait path or uses assistive device Gait and pivot: 2 - Mild impairment- pivot turns safely in >3 sec, stops, no loss of balance Step over obstacle: 1 - Moderate impairment- is able to step over box, but must stop then step over, may require verbal cueing Step around obstacle: 2 - Mild impairment- able to step around both cones, must slow down and adjust steps to clear cones Steps: 1 - Moderate impairment- 2 feet to a stair, must use rail Dynamic Gait Index Total: 14 TREATMENT: Therapeutic Exercise: 1: seated scifit 5 min, 1:1 throughout, subjective collected, level 2, seat 14 2: 30 sec sit <> stand, x11 reps Skilled Intervention: Patient was educated in proper exercise technique and purpose for exercises. Skilled judgment was used in selection of appropriate interventions. Correct performance of therapeutic exercises was facilitated with verbal, visual, and tactile cuing. Educated patient on rationale for performing exercises in regards to decreasing fatigue , includingbalance, increase ease of ADL, and ROM and function . Patient education as noted. Neuromuscular Re-Education: 1: DGI with SC, 2: TUG test 2x with SC, 13 sec each Skilled Intervention: Skilled judgment used to assess appropriate program for balance and coordination activity. Education in proprioceptive/kinesthetic awareness during standing and dynamic activities. Ensured patient safety with use of SC and gait belt. Reviewed and educated patient on additions/changes for home program as noted above with an (*). Patient education as noted. Gait Training: Pre gait training: toe push off demo Distance (feet): 160 Gait Cues: toe push off Assistive Device: SC Assist Level: supervision to SBA verbal cues Stair Training: ascending and descending x4, 6 steps with SC and x1 HR, step to pattern Skilled Intervention: Patient was provided stand by assist, supervision during pre-gait/gait training to prevent falls and insure safety. Facilitated proper gait cycle with the use of verbal, visual, and tactile cues for correction of gait deviations identified in the objective section above. Gait belt utilized during session for safety. Education provided to patient regarding the proper sequence for stair and obstacle negotiation. Correct performance of home program was facilitated with verbal, visual, and tactile cueing. Billing Therapeutic Exercise Treatment Minutes: 15 Neuromuscular Re-Education Treatment Minutes: 15 Gait Training Treatment Minutes: 10 Skilled Treatment Time Minutes (timed and untimed codes): 40 Total Session Time (minutes): 40 Session Start Time : 1144 Session Stop Time : 1224 Charleen Rocha PT documented in this encounterWilson [facility]07-[facility] Telephone encounter Note * Telephone Encounter - Christa Sandoval RN - 11/25/2023 4:05 PM EDT Patient returned call and given provider's message below. Patient states she will try the nortriptyline 100 gm at bedtime. Zaid Sandoval RN [facility]07-30-20[facility] Miscellaneous Notes* Telephone Encounter - Christa Sandoval RN - 11/25/2023 4:05 PM EDT Patient returned call and given provider's message below. Patient states she will try the nortriptyline 100 gm at bedtime. Zaid Sandoval RN * Telephone Encounter - Joanna Templeton LPN - 11/25/2023 12:09 PM EDT Left message for patient to return call * Telephone Encounter - Bradford Love APRN.CNS - 11/25/2023 11:46 AM EDT If she is feeling well with the nortriptyline 75 mg we can try increasing to 100 mg at bedtime. Sheshould let us know if she does not feel well with the change and return back to 75 mg dosing. * Telephone Encounter - Marylin Camacho LPN - 11/25/2023 10:16 AM EDT Last OV: 09/08/23 Pt reports provider increased nortriptyline to 75 mg and that has helped her hands some. Pt is asking if medication can be increased to 100 mg to see if that would help more. Please review and advise. Marylin Camacho LPN documented in this encounterWilson [facility]07-30-2024 Telephone encounter Note * Telephone Encounter - Joanna Templeton LPN - 11/25/2023 12:09 PM EDT Left message for patient to return call [facility] Telephone encounter Note* Telephone Encounter - Bradford Love APRN.DEFLECTOR OPERATOR - 11/25/2023 11:46 AM EDT If she is feeling well with the nortriptyline 75 mg we can try increasing to 100 mg at bedtime. Sheshould let us know if she does not feel well with the change and return back to 75 mg dosing. [facility]07-[facility] Telephone encounter Note* Telephone Encounter - Marylin Camacho LPN - 11/25/2023 10:16 AM EDT Last OV: 09/08/23 Pt reports provider increased nortriptyline to 75 mg and that has helped her hands some. Pt is asking if medication can be increased to 100 mg to see if that would help more. Please review and advise. Marylin Camacho LPN [facility]07-29-[facility] History of Present illness Narrative* Charleen Rocha, PT - 11/24/2023 12:17 PM EDT Episode Visit Count: 11 Therapist That Will Accept/Oversee The Plan Of Care: Charleen Rocha Start of Care Date: 09/29/23 Onset Date: 01/22/21 Plan of Care Certification Date: 11/03/23 Next Certification Due Date: 12/15/23 REHABILITATION AND SPORTS THERAPY PHYSICAL THERAPY TREATMENT NOTE ASSESSMENT: Judi Krause tolerated the session with decreased symptoms. She demonstrated difficulty with LE BOSU ball taps with x1 UE support using SC. She had no trouble and reported this exercisefeeling easy with the // bar support. The patient will continue to benefit from ongoing skilled physical therapy to progress toward set goals. PLAN FOR NEXT VISIT: continue balance training - hurdles lateral and forward stepping, consider obstacle course SUBJECTIVE: Denies falls. Denies pain. Presents with SC Patient Goals: amb in her neighborhood or at the [facility] with AD for 10-15 minutes Functional Limitations: stair negotiation, walking in the community, walking in the house (balance,) Pain: OBJECTIVE MEASURES WITH LEVEL OF FUNCTION: TREATMENT: Therapeutic Exercise: 1: seated scifit 5 min, 1:1 throughout, subjective collected, level 2, seat 14 2: lateral step down 4' step 3x8 each side, x 1 UE on // bars 3: seated heel raises 2x20 4: seated toe raises 2x20 5: seated TA activation 1x10 Skilled Intervention: Patient was educated in proper exercise technique and purpose for exercises. Skilled judgment was used in selection of appropriate interventions. Correct performance of therapeutic exercises was facilitated with verbal, visual, and tactile cuing. Educated patient on rationale for performing exercises in regards to decreasing fatigue , includingbalance, increase ease of ADL, and ROM and function . Patient education as noted. Neuromuscular Re-Education: 1: BOSU ball alt LE taps 1x20 with BUE support at // bars 2: BOSU ball alt LE taps 1x20 with x 1 UE support at // bars 3: BOSU ball alt LE taps 1x20 with x 1 UE support at // bars 4: BOSU ball alt LE taps 2x20 with x 1 UE support at SC 5: lateral BOSU lateral LE taps 2x15 each side, x1 UE at SC with intermittent tapping of hand at //bars, jaspal with LLE static standing 6: seated alt heel/toe raises opposite LE's 2x20 Skilled Intervention: Skilled judgment used to assess appropriate program for balance and coordination activity. Education in proprioceptive/kinesthetic awareness during standing and dynamic activities. Ensured patient safety with use of // bars and SC. Patient education as noted. Billing Therapeutic Exercise Treatment Minutes: 15 Neuromuscular Re-Education Treatment Minutes: 25 Skilled Treatment Time Minutes (timed and untimed codes): 40 Total Session Time (minutes): 40 Session Start Time : 1213 Session Stop Time : 1253 Charleen Rocha PT documented in this encounterWilson [facility]07-24-2024 History of Present illness Narrative* Charleen Rocha PT - 11/19/2023 12:43 PM EDT Episode Visit Count: 10 Therapist That Will Accept/Oversee The Plan Of Care: Charleen Rocha Start of Care Date: 09/29/23 Onset Date: 01/22/21 Plan of Care Certification Date: 11/03/23 Next Certification Due Date: 12/15/23 REHABILITATION AND SPORTS THERAPY PHYSICAL THERAPY TREATMENT NOTE ASSESSMENT: Judi Krause tolerated the session with fatigue and decreased symptoms. She demonstrated improvements in balance, demonstrating no LOB with BOSU step ups fwd when using BUE support in // bars. The patient will continue to benefit from ongoing skilled physical therapy to progress toward set goals. PLAN FOR NEXT VISIT: lateral step downs SUBJECTIVE: Pt. denies falls, says shes doing well. Pain: OBJECTIVE MEASURES WITH LEVEL OF FUNCTION: TREATMENT: Therapeutic Exercise: 1: seated Scifit, level 2, 5 min 1:1 throughout, subjective collected Skilled Intervention: Patient was educated in proper exercise technique and purpose for exercises. Skilled judgment was used in selection of appropriate interventions. Provided written instruction for home exercise program to facilitate proper performance and compliance. Correct performance of therapeutic exercises was facilitated with verbal, visual, and tactile cuing. Educated patient on rationale for performing exercises in regards to decreasing fatigue , includingbalance, increase ease of ADL, and ROM and function . Patient education as noted. Neuromuscular Re-Education: 1: standing in // bars rocker board forward and back tilts x2 UE support x 60 sec 2 sets 2: standing in // bars rocker board side to side tilts x2 UE support x 60 sec, 2nd set x 1 UE support 3: standing in // bars EC forwad and back tilts x 60 sec BUE support 2 sets 4: standing in // bars EC side to side x 60 sec BUE support, x1 UE support, 2 sets 5: BOSU ball fwd step ups 1x 10 each side, x 1 UE support (very SOB between each set) 6: reverse amb with SC level surface 20' 2x Skilled Intervention: Skilled judgment used to assess appropriate program for balance and coordination activity. Education in proprioceptive/kinesthetic awareness during standing and dynamic activities. Ensured patient safety with use of // bars and gait belt. Patient education as noted. Billing Therapeutic Exercise Treatment Minutes: 5 Neuromuscular Re-Education Treatment Minutes: 35 Skilled Treatment Time Minutes (timed and untimed codes): 40 Total Session Time (minutes): 40 Session Start Time : 1240 Session Stop Time : 1320 Charleen Rocha, PT documented in this encounterWilson [facility] Hospital07-22-2024 History of Present illness Narrative* Charleen Rocha, PT - 11/17/2023 12:16 PM EDT Episode Visit Count: 9 Therapist That Will Accept/Oversee The Plan Of Care: Charleen Rocha Start of Care Date: 09/29/23 Onset Date: 01/22/21 Plan of Care Certification Date: 11/03/23 Next Certification Due Date: 12/15/23 REHABILITATION AND SPORTS THERAPY PHYSICAL THERAPY TREATMENT NOTE ASSESSMENT: Judi Krause tolerated the session with no issues. She demonstrated difficulty with lateral step ups requiring 1-2 minutes of seated rests between each set. The patient will continue tobenefit from ongoing skilled physical therapy to progress toward set goals. PLAN FOR NEXT VISIT: begin SLS balance with x1-2 UE support on // bars. side stepping with SC on level ground SUBJECTIVE: Pt. reports eating too much sugar and this caused her to get dizzy. She did not go to the hospital but did feel better eventually the next day. She says she has no way of checking her sugar at home. Denies falls. Patient Goals: amb in her neighborhood or at the [facility] with AD for 10-15 minutes Functional Limitations: stair negotiation, walking in the community, walking in the house (balance,) Pain: Pain Pain Level: 0 OBJECTIVE MEASURES WITH LEVEL OF FUNCTION: TREATMENT: Therapeutic Exercise: 1: seated Scifit, level 2, 5 min 1:1 throughout, subjective collected 2: lateral step ups 4 2x15 each side x 1 UE support Skilled Intervention: Patient was educated in proper exercise technique and purpose for exercises. Skilled judgment was used in selection of appropriate interventions. Correct performance of therapeutic exercises was facilitated with verbal, visual, and tactile cuing. Educated patient on rationale for performing exercises in regards to decreasing fatigue , includingbalance, increase ease of ADL, and ROM and function . Patient education as noted. Neuromuscular Re-Education: 1: romberg on foam, EC x 2 BUE at // bars 2: romberg on foam EC x 1 UE support at // bar 2x 30 sec hold 3: romberg on foam EC x 1-2 finger tip contact at // bars 2x30 sec 4: semi tandem on foam EC x 1-2 fingertips at // bars 1x30 sec each LE forward. Skilled Intervention: Skilled judgment used to assess appropriate program for balance and coordination activity. Education in proprioceptive/kinesthetic awareness during standing and dynamic activities. Ensured patient safety with use of // bars and gait belt. Correct performance of home program was facilitated with verbal, visual, and tactile cueing. Patient education as noted. Self-Skilled Nursing Management: 1: discussed that fear of falling incrases fall risk Skilled Intervention: Skilled judgment in the selection of proper modification for activity of daily living/home management based on clinical presentation, deficits, and needs. Educated the patient regarding recommendations and provided written instruction to facilitate compliance. Activity progression based on professional judgement. Provided written instruction for home program to facilitate proper performance and compliance. Correct performance of home program was facilitated with verbal, visual, and tactile cueing. Billing Therapeutic Exercise Treatment Minutes: 15 Neuromuscular Re-Education Treatment Minutes: 20 Self-Care/Home Management Treatment Minutes: 5 Skilled Treatment Time Minutes (timed and untimed codes): 40 Total Session Time (minutes): 40 Session Start Time : 1220 Session Stop Time : 1300 Charleen Rocha PT documented in [facility] History of Present illness Narrative* Jin Arellano, PT - 11/10/2023 12:31 PM EDT Episode Visit Count: 8 Therapist That Will Accept/Oversee The Plan Of Care: Charleen Rocha Start of Care Date: 09/29/23 Onset Date: 01/22/21 Plan of Care Certification Date: 11/03/23 Next Certification Due Date: 12/15/23 Patient Identified by Name and Date of : Yes REHABILITATION AND SPORTS THERAPY PHYSICAL THERAPY TREATMENT NOTE ASSESSMENT: Judi Krause tolerated the session with fatigue and expected muscle soreness. She demonstrated improvements with SLS balance without UE support and only occasional taps on // bars. The patient will continue to benefit from ongoing skilled physical therapy to progress toward set goals. PLAN FOR NEXT VISIT: dynamic balance in // bars - consider tandem walking or walking on foam curb, lateral step ups 4 SUBJECTIVE: Pt denies any pain to start todays session. Pain: Pain Pain Level: 0 Post Treatment Pain Post Treatment Pain Level: 0 OBJECTIVE MEASURES WITH LEVEL OF FUNCTION: Pt had tendency to start breathing at increased rate when performing balancing exercises, deep breathing instructions given. TREATMENT: Therapeutic Exercise: 1: seated SciFit stepper level 2, 5 min, 1:1 throughout, subjective collected 2: STS 2x10 Skilled Intervention: Patient was educated in proper exercise technique and purpose for exercises. Skilled judgment was used in selection of appropriate interventions. Correct performance of therapeutic exercises was facilitated with verbal and visual cuing. Neuromuscular Re-Education: 1: Step ups on foam x10 with BUE assist. 2: Step ups on foam with 1 UE assist x10 B 3: standing on foam, romberg stance,EO 60 sec 4: static SL standing on firm ground, x1 UE support EO 1x30 sec (occasional tap on // bars) 5: Alt taps on BOSU 2x10 B with 1 UE assist Skilled Intervention: Skilled judgment used to assess appropriate program for balance and coordination activity. Ensured patient safety with use of gait belt. Billing Therapeutic Exercise Treatment Minutes: 10 Neuromuscular Re-Education Treatment Minutes: 31 Total Session Time (minutes): 41 Session Start Time : 1230 Session Stop Time : 1311 Marissa ARA Lobato, PT, DPT. documented in this encounterWilson [facility]07-[facility] History of Present illness Narrative* Charleen Rocha, PT - 11/06/2023 10:58 AM EDT Episode Visit Count: 7 Therapist That Will Accept/Oversee The Plan Of Care: Charleen Rocha Start of Care Date: 09/29/23 Onset Date: 01/22/21 Plan of Care Certification Date: 11/03/23 Next Certification Due Date: 12/15/23 REHABILITATION AND SPORTS THERAPY PHYSICAL THERAPY TREATMENT NOTE ASSESSMENT: Judi Krause tolerated the session with fatigue. She demonstrated difficulty with step ups due to SOB but demonstrates the strength and balance to complete with x1 UE support. The patient will continue to benefit from ongoing skilled physical therapy to progress toward set goals. PLAN FOR NEXT VISIT: dynamic balance in // bars - consider tandem walking or walking on foam curb, lateral step ups 4 SUBJECTIVE: Pt. denies upper abdominal pain for over a week Functional Limitations: stair negotiation, walking in the community, walking in the house (balance,) Pain: Pain Pain Level: 0 Post Treatment Pain Post Treatment Pain Level: 0 OBJECTIVE MEASURES WITH LEVEL OF FUNCTION: TREATMENT: Therapeutic Exercise: 1: seated SciFit stepper level 2, 5 min, 1:1 throughout, subjective collected 2: step ups 6 step x1 UE support 2x10 each side (more weakness R as compared to L. SOB both sides - cues to complete slowly, cues for exhale with step up, inhale with step down) Skilled Intervention: Patient was educated in proper exercise technique and purpose for exercises. Skilled judgment was used in selection of appropriate interventions. Correct performance of therapeutic exercises was facilitated with verbal, visual, and tactile cuing. Educated patient on rationale for performing exercises in regards to decreasing fatigue , includingbalance, increase ease of ADL, and ROM and function . Patient education as noted. Neuromuscular Re-Education: 1: standing on foam, regular stance, no UE support 60 sec 2: standing on foam, romberg stance, 60 sec 3: standing on foam, reg stance, x1 UE support EC 60 sec 4: standing on foam, romberg stance, x1 UE support EC 60 sec 5: static SL standing on firm ground, x1 UE support EO 3x30 sec 6: tandem stance static hold x1 UE support on // bars 3x30 sec each foot fwd Skilled Intervention: Skilled judgment used to assess appropriate program for balance and coordination activity. Education in proprioceptive/kinesthetic awareness during standing and dynamic activities. Ensured patient safety with use of // bars and gait belt. Patient education as noted. Billing Therapeutic Exercise Treatment Minutes: 15 Neuromuscular Re-Education Treatment Minutes: 25 Skilled Treatment Time Minutes (timed and untimed codes): 40 Total Session Time (minutes): 40 Session Start Time : 1100 Session Stop Time : 1140 Charleen Rocha PT documented in this encounterWilson [facility]07-[facility] History of Present illness Narrative* Charleen Rocha PT - 11/03/2023 12:35 PM EDT Images from the original note were not included. Episode Visit Count: 6 Therapist That Will Accept/Oversee The Plan Of Care: Charleen Rocha Start of Care Date: 09/29/23 Onset Date: 01/22/21 Plan of Care Certification Date: 11/03/23 Next Certification Due Date: 12/15/23 REHABILITATION AND SPORTS THERAPY PHYSICAL THERAPY PROGRESS REPORT PLAN OF CARE UPDATE: Assessment: Judi Krause demonstrates improvements in rising from a chair, standing, walking, and bending. She has progressed toward goals. Patient continues to present with impairments in ADL's, balance, gait, independence in exercise, joint mobility, overall function, patient reported outcome measures, posture, strength, and symptom management that interfere with stair negotiation, walking in the community, walking in the house (balance,) . Current prognosis is Fair due to: clinical presentation, multiple co- morbidities, chronic nature of impairments . She will benefit from continued skilled therapyservices to meet the updated goals for this plan of care as noted below. Goals for Episode of Care: created on 09/29/23 through 11/10/23 Goals updated on 11/03/2023 through 12/14/23 Patient will report no falls. -- MET Improve score on Timed Up and Go Test to 10 or less seconds using AD to reflect decreased fall risk. -- PROGRESSING, 14 sec with SC Improve score on 30 Second Chair Stand to 10 or more repetitions to reflect decreased fall risk. -- PROGRESSING, 9 reps [place] in home exercise program including cardiovascular exercise. Patient will demonstrate independent and proper use of assisstive device to allow for improved walking quality and safety therefore reducing the risk of falls. -- PROGRESSING Patient Goals: amb in her neighborhood or at the rec center with AD for 10-15 minutes -- MET NEW GOAL 11/03/23 score Patient Goals: amb in her neighborhood or at the rec center with AD for 10-15 minutes Planned Interventions, Frequency, and Duration: 1x/week, 6 weeks Total Number of Visits Planned: 6 Patient to be seen for Gait Training (14459), Self-fdc management (68683), Therapeutic activities (45886), Manual therapy (70501), Neuromuscular re- education (63745), Therapeutic exercise (48299) PLAN FOR NEXT VISIT: continue stepping over obstacles with x1 UE support with SC, work on stabilization strengthening/ balance of LLE SUBJECTIVE: Pt. presents again with SC. She tolerates more than 10-15 min of community distance ambwhen shopping or walking into stores. She does not walk outside for exercsie recently due to hot weather. Denies falls. Patient Goals: amb in her neighborhood or at the rec center with AD for 10-15 minutes Functional Limitations: stair negotiation, walking in the community, walking in the house (balance,) Pain: Pain Pain Level: 0 PROMIS Scales 10/29/2023 09/29/2023 Higher is Better Phys Func - Score 33 (moderate dysfunction) 36 (moderate dysfunction) Phys Func - Percentile 4 8 Self-Eff Symptom - Score 44 (Average) Self-Eff Symptom - Percentile 27 T-scores: mean of general population = 50. 5 points is clinically meaningfully difference Percentiles provide an indication of how the patient's score ranks in relation to the general population. Higher percentile rankings indicate better function/quality of life. 50th percentile is the average of the general population and indicates half of respondents had a worse score. OBJECTIVE MEASURES WITH LEVEL OF FUNCTION: Gait Gait Distance (feet): 100 Gait Device: Cane Gait Deviations: General Deviations General Deviations/Observations: Flexed trunk posture, Arm swing decreased, Step length decreased, Trunk Control Decreased, Wide base of support, Difficulty changing direction/turning, Chel decreased Stairs: reciprocal pattern with BUE HR, non-reciprocal pattern descending with B HR Functional Performance Test Results Assistive Device: Cane 30 Second Chair Stand Test: 9 reps Timed Up and Go (sec): 16 sec Timed Up and Go - Condition 2 (sec) : 14 Dynamic Gait Index Gait level surface : 2 - Mild impairment- walks 20' uses assist device, slower speed, mild gait deviation Change in gait speed: 2 - Mild impairment- is able to change speed but demonstrates mild gait deviations or no gait deviations but unable to achieve a significant change in velocity, or uses an assistive device Gait and horizontal head turns: 2 - Mild impairment- performs R/L head turns smoothly with slight change in gait velocity, minor disruption to smooth gait path or uses assistive device Gait and vertical head turns: 2 - Mild impairment- performs up/ down head turns smoothly with slight change in gait velocity, minor disruption to smooth gait path or uses assistive device Gait and pivot: 1 - Moderate impairment- turns slowly, requires verbal cueing, requires several small steps following turn and stop Step over obstacle: 2 - Mild impairment- is able to step over box, but must slow down and adjust steps to clear box Step around obstacle: 2 - Mild impairment- able to step around both cones, must slow down and adjust steps to clear cones Steps: 1 - Moderate impairment- 2 feet to a stair, must use rail Dynamic Gait Index Total: 14 TREATMENT: Therapeutic Exercise: 1: seated SciFit stepper level 2, 5 min, 1:1 throughout, subjective collected 2: 30 sec sit <> stand test with arm rests Skilled Intervention: Patient was educated in proper exercise technique and purpose for exercises. Skilled judgment was used in selection of appropriate interventions. Provided written instruction for home exercise program to facilitate proper performance and compliance. Correct performance of therapeutic exercises was facilitated with verbal, visual, and tactile cuing. Educated patient on rationale for performing exercises in regards to decreasing fatigue , includingbalance, increase ease of ADL, and ROM and function . Patient education as noted. Neuromuscular Re-Education: 1: TUG test 2x with SC 2: DGI with SC Skilled Intervention: Education in proprioceptive/kinesthetic awareness during dynamic activities. Ensured patient safety with use of gait belt and SC. Billing Therapeutic Exercise Treatment Minutes: 8 Neuromuscular Re-Education Treatment Minutes: 30 Skilled Treatment Time Minutes (timed and untimed codes): 38 Total Session Time (minutes): 38 Session Start Time : 1230 Session Stop Time : 1308 Charleen Rocha PT documented in this encounterWilson [facility]07-[facility] History of Present illness Narrative* Charleen Rocha PT - 10/29/2023 1:30 PM EDT Episode Visit Count: 5 Therapist That Will Accept/Oversee The Plan Of Care: Charleen Rocha Start of Care Date: 09/29/23 Onset Date: 01/22/21 Plan of Care Certification Date: 09/29/23 Next Certification Due Date: 11/03/23 REHABILITATION AND SPORTS THERAPY PHYSICAL THERAPY TREATMENT NOTE ASSESSMENT: Judi Krause tolerated the session with fatigue. She demonstrated difficulty with foam curb side stepping with SC -- unable to step onto curb and this was modified to use of // bars . The patient will continue to benefit from ongoing skilled physical therapy to progress toward set goals. PLAN FOR NEXT VISIT: PN and DGI SUBJECTIVE: Denies falls. Feels much better using a cane to amb. Patient Goals: amb in her neighborhood or at the [facility] with AD for 10-15 minutes Functional Limitations: stair negotiation, walking, bending, walking in the community, walking in the house, rising from a chair, standing (balance,) Pain: Pain Pain Level: 0 Post Treatment Pain Post Treatment Pain Level: No Change OBJECTIVE MEASURES WITH LEVEL OF FUNCTION: TREATMENT: Therapeutic Exercise: 1: seated SciFit stepper x 5 min, 1:1 throughout, subjective collected, level 2 ,seat 15 2: standing HS curls at // bars 1x15 each side Skilled Intervention: Patient was educated in proper exercise technique and purpose for exercises. Skilled judgment was used in selection of appropriate interventions. Provided written instruction for home exercise program to facilitate proper performance and compliance. Correct performance of therapeutic exercises was facilitated with verbal, visual, and tactile cuing. Educated patient on rationale for performing exercises in regards to decreasing fatigue , includingbalance, increase ease of ADL, and ROM and function . Patient education as noted. Neuromuscular Re-Education: 1: foam curb side stepping with SC -- unable to step onto curb and this was modified to use of // bars 2: tandem stepping with SC and // bars 20' 6x 3: negociating 6x6 obstacles with SC 6x 20' with SURGICAL TRAINING SPECIALIST and SC (attempted with just SC and pt. trips x1 obstacle requiring PT assist to avoid LOB) 4: tandem stepping with xingle UE support at // bars 20' 6x 5: side stepping over single 6 karla 2x10, 1st set with x2 UE support, 2nd set with x1 UE support Skilled Intervention: Skilled judgment used to assess appropriate program for balance and coordination activity. Education in proprioceptive/kinesthetic awareness during standing and dynamic activities. Ensured patient safety with use of // bars and gait belt. Reviewed and educated patient on additions/changes for home program as noted above with an (*). Patient education as noted. Billing Therapeutic Exercise Treatment Minutes: 8 Neuromuscular Re-Education Treatment Minutes: 30 Skilled Treatment Time Minutes (timed and untimed codes): 38 Total Session Time (minutes): 38 Session Start Time : 1322 Session Stop Time : 1400 Charleen Rocha PT documented in this encounterWilson [facility]07-01-[facility]24 History of Present illness Narrative* Charleen Rocha, PT - 10/27/2023 1:13 PM EDT Episode Visit Count: 4 Therapist That Will Accept/Oversee The Plan Of Care: Charleen Rocha Start of Care Date: 09/29/23 Onset Date: 01/22/21 Plan of Care Certification Date: 09/29/23 Next Certification Due Date: 11/03/23 REHABILITATION AND SPORTS THERAPY PHYSICAL THERAPY TREATMENT NOTE ASSESSMENT: Judi Karuse tolerated the session with fatigue. She demonstrated improvements in activity tolerance. She also brought a SC. The patient will continue to benefit from ongoing skilled physical therapy to progress toward set goals. PLAN FOR NEXT VISIT: SUBJECTIVE: Pt. feeling better since last visit. She reports vomiting 2x more after going home. Sheis not sure what caused it, suspects possible the flu. Presents with SC and denies pain. Pain: Pain Pain Level: 0 Post Treatment Pain Post Treatment Pain Level: No Change OBJECTIVE MEASURES WITH LEVEL OF FUNCTION: TREATMENT: Therapeutic Exercise: 1: seated SciFit stepper x 5 min, 1:1 throughout, subjective collected, level 2 ,seat 15 2: step ups fwd 4 3x8 each side (2 hands 1st set , x1 UE support 2nd and 3rd set becoming more SOBand requring more rest between sets) 3: step ups lateral 4 3x8 each side Skilled Intervention: Patient was educated in proper exercise technique and purpose for exercises. Skilled judgment was used in selection of appropriate interventions. Educated patient on rationale for performing exercises in regards to decreasing fatigue , includingbalance, increase ease of ADL, and ROM and function . Patient education as noted. Neuromuscular Re-Education: 1: standard stance on foam 2x60 sec hold without UE support 2: romberg stance on foam 2x60 sec no UE support Skilled Intervention: Skilled judgment used to assess appropriate program for balance and coordination activity. Education in proprioceptive/kinesthetic awareness during standing and dynamic activities. Ensured patient safety with use of SC. Reviewed and educated patient on additions/changes for home program as noted above with an (*). Patient education as noted. Gait Training: Pre gait training: correct use of SC Distance (feet): 160 2x Gait Cues: toe push off Assistive Device: SC Assist Level: SBA Skilled Intervention: Patient was provided stand by assist during pre-gait/gait training to preventfalls and insure safety. Skilled judgment used to assess selection and proper use of assistive device. Billing Therapeutic Exercise Treatment Minutes: 15 Neuromuscular Re-Education Treatment Minutes: 15 Gait Training Treatment Minutes: 8 Skilled Treatment Time Minutes (timed and untimed codes): 38 Total Session Time (minutes): 38 Session Start Time : 1313 Session Stop Time : 1351 Charleen Rocha PT documented in this encounterWilson [facility]06-27-[facility]24 Telephone encounter Note * Telephone Encounter - Paty Jason RN - 10/23/2023 2:20 PM EDT Patient returned call. No note in EPIC at time of call. She offered update stating They're probably calling to ask how I feel today. She states when she left the office yesterday she vomited two more times at home with no other symptoms. She says she laid down and took a nap. Woke up with no further nausea or vomiting. Denies abdominal pain. Denies SOB. She says since yesterday after nap I've been fine. Paty Jason RN [facility]06-[facility] Miscellaneous Notes* Telephone Encounter - Paty Jason RN - 10/23/2023 2:20 PM EDT Patient returned call. No note in EPIC at time of call. She offered update stating They're probably calling to ask how I feel today. She states when she left the office yesterday she vomited two more times at home with no other symptoms. She says she laid down and took a nap. Woke up with no further nausea or vomiting. Denies abdominal pain. Denies SOB. She says since yesterday after nap I've been fine. Paty Jason RN * Telephone Encounter - Kathryn Leavitt RN - 10/23/2023 2:17 PM EDT Attempted x 2 to call pt to check on her and see how she is feeling. No answer. Left voicemail. Permission to speak with 2 daughters and a son. Called daughter Sade who states she spoke to her mother last evening and her mother told her she had an episode of vomiting at PT. States her mother toldher that she vomited all over herself again when she got home. She has not spoken to her mother toda y. Explained that it was documented that her mother was SOB. Daughter states she is always SOB. Dhecan hardly make it from her care to the store without extreme shortness of breath. Pt was last seenon 09/08/23. Let daughter know that pt did not answer the phone when attempted to call and check on pt. Sade states she lives in [place] but her brother lives in [place]. Sade will continue to try and call her mother and contact her brother. She will call us back or have the pt call us. Explained to daughter that we can have the police go do a welfare check on her. She states she will get back to us. * Telephone Encounter - Christie Deleon LPN - 10/22/2023 2:06 PM EDT Patient present to office today, 10/22/2023 for PT appointment with charleen Rocha due to SOB patient appointment was cancelled. Patient was in lobby when she vomited. This nurse provided resources toclean up patient. Offered to call patients family member to take her home. Patient states that she has absolutely know one close. Patient assisted into W/C and brought into exam room. Patient denies feeling dizzy. Patient states that she is fine. 12:46 This nurse insisted on getting vital signs on patient. Patient agreed at Bp 104/70, Pulse 44,SPO2 88%-96% on RA. 12:[address] Irvin Acosta. He advised have patient rest for 5 min and if patient feels ok and vitals are ok she could proceed home and contact PCP for further evaluation. 12:54 Patient states she id ready to leave. She feels fine. Patient SPO2 was 94%. Reiterated to patient that she would not drive if she is not feeling well. Patient reiterated that she has know one and there is know one to come get her. Patient states she would to leave right now and be wheeled to front door. Patient was wheeled to front door and offered assistive devices patient declined. Patient walk to car. Christie Deleon LPN documented in this encounterWilson [facility] Hospital06-27-2024 Telephone encounter Note * Telephone Encounter - Kathryn Leavitt RN - 10/23/2023 2:17 PM EDT Attempted x 2 to call pt to check on her and see how she is feeling. No answer. Left voicemail. Permission to speak with 2 daughters and a son. Called daughter Sade who states she spoke to her mother last evening and her mother told her she had an episode of vomiting at PT. States her mother toldher that she vomited all over herself again when she got home. She has not spoken to her mother todrew y. Explained that it was documented that her mother was SOB. Daughter states she is always SOB. Leo hardly make it from her care to the store without extreme shortness of breath. Pt was last seenon 09/08/23. Let daughter know that pt did not answer the phone when attempted to call and check on pt. Sade states she lives in [place] but her brother lives in [place]. Sade will continue to try and call her mother and contact her brother. She will call us back or have the pt call us. Explained to daughter that we can have the police go do a welfare check on her. She states she will get back to us. [facility]06-26-2024 Telephone encounter Note* Telephone Encounter - Christie Deleon LPN - 10/22/2023 2:06 PM EDT Patient present to office today, 10/22/2023 for PT appointment with charleen Rocha due to SOB patient appointment was cancelled. Patient was in lobby when she vomited. This nurse provided resources toclean up patient. Offered to call patients family member to take her home. Patient states that she has absolutely know one close. Patient assisted into W/C and brought into exam room. Patient denies feeling dizzy. Patient states that she is fine. 12:46 This nurse insisted on getting vital signs on patient. Patient agreed at Bp 104/70, Pulse 44,SPO2 88%-96% on RA. 12:[address] Irvin Acosta. He advised have patient rest for 5 min and if patient feels ok and vitals are ok she could proceed home and contact PCP for further evaluation. 12:54 Patient states she id ready to leave. She feels fine. Patient SPO2 was 94%. Reiterated to patient that she would not drive if she is not feeling well. Patient reiterated that she has know one and there is know one to come get her. Patient states she would to leave right now and be wheeled to front door. Patient was wheeled to front door and offered assistive devices patient declined. Patient walk to car. Christie Deleon LPN [facility] Work Phone: [phone]) 357-173606-26-2024 History of Present illness Narrative* Charleen Rocha, PT - 10/22/2023 12:24 PM EDT Pt. reports she feels very SOB upon entering clinic. Presents without SC. Carries a heavy bag. [id number] and instructed to take a seated rest. Despite SOB resolving and 99% SpO2 reports that sheis unable to exercise requests to be walked out to lobby. Refuses for PT to call someone to pick her up and refuses EMS services. PT offers 3x, and pt.refuses each time. Offered water, and pt. drinksher own water bottle she brought with her. Upon sitting in the lobby, pt. throws up and continues to refuse for PT or [employer] to call for assistance or medical attention. PT explains the concern with pt.Driving herself home and the possibility that she would have difficulty getting into her house safely. [employer] and PT assist pt. to w/c. Charleen Rocha, PT, DPT documented in this encounter[facility] History of Present illness Narrative* Charleen Rocha, PT - 10/20/2023 3:54 PM EDT Program_ID:[id number] Access Code: [email or web address] URL: [email or web address] Date: 10-20-2023 Prepared By: Charleen Rocha Program Notes Exercises - Seated Transversus Abdominis Bracing with PLB - 1 x daily - 7 x weekly - 4 sets - 10 reps * Charleen Rocha PT - 10/20/2023 3:16 PM EDT Episode Visit Count: 2 Therapist That Will Accept/Oversee The Plan Of Care: Charleen Rocha Start of Care Date: 09/29/23 Onset Date: 01/22/21 Plan of Care Certification Date: 09/29/23 Next Certification Due Date: 11/03/23 REHABILITATION AND SPORTS THERAPY PHYSICAL THERAPY TREATMENT NOTE ASSESSMENT: Judi Krause tolerated the session with fatigue. She demonstrated difficulty with ambulation into the clinic due to SOB and without use of AD. The patient will continue to benefit from ongoing skilled physical therapy to progress toward set goals. PLAN FOR NEXT VISIT: SUBJECTIVE: Pt. had a fall last week. Presents without an AD. SOB upon entry into PT clinic. Patient Goals: amb in her neighborhood or at the [facility] with AD for 10-15 minutes Pain: OBJECTIVE MEASURES WITH LEVEL OF FUNCTION: Dynamic Gait Index Gait level surface : 2 - Mild impairment- walks 20' uses assist device, slower speed, mild gait deviation Change in gait speed: 2 - Mild impairment- is able to change speed but demonstrates mild gait deviations or no gait deviations but unable to achieve a significant change in velocity, or uses an assistive device Gait and horizontal head turns: 0 - Severe impairment- performs task with severe disruption of gait, staggers outside 15 path, loses balance, stops, reaches for wall Gait and vertical head turns: 0 - Severe impairment- performs task with severe disruption of gait, staggers outside 15 path, loses balance, stops, reaches for wall Gait and pivot: 1 - Moderate impairment- turns slowly, requires verbal cueing, requires several small steps following turn and stop Step over obstacle: 0 - Severe impairment- cannot perform without assistance Step around obstacle: 0 - Severe impairment- unable to clear cones, walks into 1 or both cones, or requires physical assistance Steps: 0 - Severe impairment- cannot do safely Dynamic Gait Index Total: 5 Vitals SpO2: 98 % TREATMENT: Therapeutic Exercise: 1: *Access Code: [email or web address] URL: [email or web address] Date: 10/20/2023 Prepared by: Charleen Santos Exercises - Seated Transversus Abdominis Bracing with PLB - 1 x daily - 7 x weekly - 4 sets - 10 reps - 1 hold Skilled Intervention: Patient was educated in proper exercise technique and purpose for exercises. Skilled judgment was used in selection of appropriate interventions. Provided written instruction for home exercise program to facilitate proper performance and compliance. Correct performance of therapeutic exercises was facilitated with verbal, visual, and tactile cuing. Educated patient on rationale for performing exercises in regards to decreasing fatigue , includingbalance, increase ease of ADL, and ROM and function . Patient education as noted. Neuromuscular Re-Education: 1: DGI with SC, 09/18 and substantial time required to complete due to SOB. Skilled Intervention: Skilled judgment used to assess appropriate program for balance and coordination activity. Education in proprioceptive/kinesthetic awareness during dynamic activities. Ensured patient safety with use of gait belt and SC. Patient education as noted. Self-Skilled Nursing Management: 1: discussed at length the importance of using a SC 2: discussed the risk of a head injury as a result of increased fall risk without using and AD 3: discussed that a cane would improve her acivity tolerance Skilled Intervention: Skilled judgment in the selection of proper modification for activity of daily living/home management based on clinical presentation, deficits, and needs. Reviewed patient specific diagnosis in relation to activities of daily living/home management. Activity progression based on professional judgement. Reviewed and educated patient on additions/changes for home program as noted above with an (*). Billing Therapeutic Exercise Treatment Minutes: 5 Neuromuscular Re-Education Treatment Minutes: 15 Self-Care/Home Management Treatment Minutes: 20 Skilled Treatment Time Minutes (timed and untimed codes): 40 Total Session Time (minutes): 40 Session Start Time : 1516 Session Stop Time : 1556 Charleen Rocha PT documented in this encounterWilson [facility]06-[facility]24 NoteHNO ID: [id number] Author: CHARLEEN ROCHA PT Service: ? Author Type: Physical Therapist Type: Progress Notes Filed: 10/20/2023 15:57 Note Text: Episode Visit Count: 2 Therapist That Will Accept/Oversee The Plan Of Care: Charleen Rocha Start of Care Date: 09/29/23 Onset Date: 01/22/21 Plan of Care Certification Date: 09/29/23 Next Certification Due Date: 11/03/23 REHABILITATION AND SPORTS THERAPY PHYSICAL THERAPY TREATMENT NOTE ASSESSMENT: Judi Krause tolerated the session with fatigue. She demonstrated difficulty with ambulation into the clinic due to SOB and without use of AD. The patient will continue to benefit from ongoing skilled physical therapy to progress toward set goals. PLAN FOR NEXT VISIT: SUBJECTIVE: Pt. had a fall last week. Presents without an AD. SOB upon entry into PT clinic. Patient Goals: amb in her neighborhood or at the [facility] with AD for 10-15 minutes Pain: OBJECTIVE MEASURES WITH LEVEL OF FUNCTION: Dynamic Gait Index Gait level surface : 2 - Mild impairment- walks 20' uses assist device, slower speed, mild gait deviation Change in gait speed: 2 - Mild impairment- is able to change speed but demonstrates mild gait deviations or no gait deviations but unable to achieve a significant change in velocity, or uses an assistive device Gait and horizontal head turns: 0 - Severe impairment- performs task with severe disruption of gait, staggers outside 15 path, loses balance, stops, reaches for wall Gait and vertical head turns: 0 - Severe impairment- performs task with severe disruption of gait, staggers outside 15 path, loses balance, stops, reaches for wall Gait and pivot: 1 - Moderate impairment- turns slowly, requires verbal cueing, requires several small steps following turn and stop Step over obstacle: 0 - Severe impairment- cannot perform without assistance Step around obstacle: 0 - Severe impairment- unable to clear cones, walks into 1 or both cones, or requires physical assistance Steps: 0 - Severe impairment- cannot do safely Dynamic Gait Index Total: 5 Vitals SpO2: 98 % TREATMENT: Therapeutic Exercise: 1: *Access Code: [email or web address] URL: [email or web address] Date: 10/20/2023 Prepared by: Charleen Rocha Exercises - Seated Transversus Abdominis Bracing with PLB - 1 x daily - 7 x weekly - 4 sets - 10 reps - 1 hold Skilled Intervention: Patient was educated in proper exercise technique and purpose for exercises. Skilled judgment was used in selection of appropriate interventions. Provided written instruction for home exercise program to facilitate proper performance and compliance. Correct performance of therapeutic exercises was facilitated with verbal, visual, and tactile cuing. Educated patient on rationale for performing exercises in regards to decreasing fatigue , including balance, increase ease of ADL, and ROM and function . Patient education as noted. Neuromuscular Re-Education: 1: DGI with SC, 09/18 and substantial time required to complete due to SOB. Skilled Intervention: Skilled judgment used to assess appropriate program for balance and coordination activity. Education in proprioceptive/kinesthetic awareness during dynamic activities. Ensured patient safety with use of gait belt and SC. Patient education as noted. Self-Skilled Nursing Management: 1: discussed at length the importance of using a SC 2: discussed the risk of a head injury as a result of increased fall risk without using and AD 3: discussed that a cane would improve her acivity tolerance Skilled Intervention: Skilled judgment in the selection of proper modification for activity of daily living/home management based on clinical presentation, deficits, and needs. Reviewed patient specific diagnosis in relation to activities of daily living/home management. Activity progression based on professional judgement. Reviewed and educated patient on additions/changes for home program as noted above with an (*). Billing Therapeutic Exercise Treatment Minutes: 5 Neuromuscular Re-Education Treatment Minutes: 15 Self-Care/Home Management Treatment Minutes: 20 Skilled Treatment Time Minutes (timed and untimed codes): 40 Total Session Time (minutes): 40 Session Start Time : 1516 Session Stop Time : 1556 Charleen Rocha, [facility]06-18-2024 History of Present illness Narrative* Roslyn Murray RT(R) - 10/14/2023 12:30 PM EDT Radiology Service Progress Note PATIENT NAME: Judi Krause DATE OF SERVICE: October 14, 2023 TIME: 12:15 PM PATIENT IDENTITY VERIFICATION COMPLETED USING TWO (2) IDENTIFIERS: Name and Date of confirmedby patient verbally. FALL SCREENING: Has the patient had 2 falls in the last year or 1 fall with injury or currently using an Ambulatory Assistive Device (Walker, Cane, Wheelchair, Crutches, etc.)? No PATIENT GENDER DATA: Female. status: : No status: NO. PATIENT RELEVANT IMPLANT DATA REVIEWED: Yes PATIENT PRESENTS WITH AN IMPLANTABLE OR ATTACHED SPRAYER HAND: No RADIOLOGY DEPARTMENT: General X-ray: Exam(s) Completed: Lower Extremity X- Ray(s): Ankle, Left and Foot, Left PERIPHERAL IV DATA: Not applicable SIGNED BY: RT Marco(R) October 14, 2023 12:15 PM documented in this encounterWilson Memorial Hospital06-18-2024 NoteHNO ID: [id number] Author: ROSLYN MURRAY RT(R) Service: Radiology Author Type: Technologist Type: Progress Notes Filed: 10/14/2023 12:32 Note Text: Radiology Service Progress Note PATIENT NAME: Judi Krause DATE OF SERVICE: October 14, 2023 TIME: 12:15 PM PATIENT IDENTITY VERIFICATION COMPLETED USING TWO (2) IDENTIFIERS: Name and Date of confirmed by patient verbally. FALL SCREENING: Has the patient had 2 falls in the last year or 1 fall with injury or currently using an Ambulatory Assistive Device (Walker, Cane, Wheelchair, Crutches, etc.)? No PATIENT GENDER DATA: Female. status: : No status: NO. PATIENT RELEVANT IMPLANT DATA REVIEWED: Yes PATIENT PRESENTS WITH AN IMPLANTABLE OR ATTACHED SPRAYER HAND: No RADIOLOGY DEPARTMENT: General X-ray: Exam(s) Completed: Lower Extremity X-Ray(s): Ankle, Left and Foot, Left PERIPHERAL IV DATA: Not applicable SIGNED BY: GAMALIEL Lara) October 14, 2023 12:15 [facility]06-18-2024 NoteHNO ID: [id number] Author: RUIZ SERRATO APRN.MANUAL LATHE OPERATOR Service: ? Author Type: Nurse Practitioner Type: Progress Notes Filed: 10/14/2023 13:36 Note Text: Subjective HPI Nontoxic-appearing female presents urgent care chief complaint left foot and ankle swelling. Duration of symptoms 2 days. Associated symptoms swelling and bruising to left foot and ankle. Patient states inverted her ankle going down the stairs. Did not experience any pain. States has neuropathy. Presents today due to persistent swelling and bruising. No other injuries. No knee hip or back pain. No head pain. Did not fall. Patient states history of hammertoe surgery to this foot. No ankle surgeries. Past medical history prescription medications allergies reviewed. 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, unspecified Dysfunction of eustachian tube Essential hypertension, benign Generalized anxiety disorder Anxiety, Generalized Internal hemorrhoids without mention of complication Lumbago Nonspecific abnormal finding in stool contents Ocular migraine Osteoporosis, unspecified Type 2 diabetes mellitus without complication, without long-term current use of insulin (HCC) Unspecified constipation Unspecified essential hypertension Varicose veins of other sites PAST SURGICAL HISTORY Procedure Laterality Date ABDOMINAL SURGERY HX 2004 tummy tuck ANESTHESIA HERNIA REPAIR LOWER ABDOMEN NOS ANKLE SURGERY HX Right 04/2019 Tendon repair BREAST LUMPECTOMY HX Left 01/2020 BREAST LUMPECTOMY HX Bilateral 01/2020 re-excision of margins COIL, EMBOLIZATION 2005 aneurysm COLONOSCOPY W/BIOPSY SINGLE/MULTIPLE 08/12/2007 FASCT PALM W/WO Z-PLASTY TISSUE REARGMT/SKN GRFT Right 01/05/2019 Right 5th finger palmar fasciectomy HAMMERTOE REVISION, ONE TOE Left 2016 HYSTERECTOMY HX 12/03/1988 IRIDOTOMY/IRIDECTOMY BY LASER Right OPEN TREATMENT,TRIMALLEOLAR ANKLE FRACTURE Right 05/29/2018 [facility] PICC LINE INSERT/CONSULT 01/23/2021 PICC LINE INSERT/CONSULT 01/29/2021 REMV CATARACT EXTRACAP,INSERT LENS Bilateral SHX CRANIOTOMY Left 2005 aneurysm TOTAL KNEE REPLACEMENT Right 07/2020 VEIN SURGERY (SPECIFY LOCATION) HX 2009 Dr. Bahena ALLERGIES Codeine, Morphine, and Prozac [Fluoxetine] MEDICATIONS losartan (COZAAR) 50 mg tablet Take 1 tablet by mouth once daily. metFORMIN (GLUCOPHAGE) 500 mg tablet Take 1 tablet by mouth daily with breakfast. For blood sugar. Do not take this medicine if you are not eating. nortriptyline (PAMELOR) 75 mg capsule Take 1 capsule by mouth daily at bedtime. zolpidem (AMBIEN) 10 mg Take 0.5-1 tablets by mouth at bedtime as needed (insomnia) for up to 14 days. Flaxseed Oil oil 1 capsule once daily. exemestane (AROMASIN) 25 mg tablet Take 1 tablet by mouth once daily. TAKE AFTER A MEAL. flaxseed-omega3,6,9-fatty acid 1,300-670-155 mg cap Take 1 capsule by mouth two times a day. aspirin, enteric coated (ASPIRIN, ENTERIC COATED) 81 mg EC tablet Take 81 mg by mouth once daily. [id number]-[id number]-st (GLUCOSAMINE CHONDROITIN PLUS) [id number] mg cap Take 1 capsule by mouth once daily. folic acid 400 mcg tablet Take 400 mcg by mouth once daily. ascorbic acid, vitamin C, (VITAMIN C) 500 mg tablet Take 500 mg by mouth once daily. Cholecalciferol, Vitamin D3, 125 mcg (5,000 unit) cap Take 5,000 Units by mouth once daily. (Patient not taking: Reported on 09/05/2023) cyanocobalamin (VITAMIN B-12) 100 mcg tab Take 100 mcg by mouth once daily. (Patient not taking: Reported on 09/05/2023) FAMILY HISTORY Problem Relation Age of Onset Breast Cancer Mother 72 Hypertension Mother Alzheimer's Disease Mother Coronary Artery Disease Father Alzheimer's Disease Sister Breast Cancer Maternal Aunt No Ocular Disease Other Social History Tobacco Use Smoking status: Never Smokeless tobacco: Never Vaping Use Vaping Use: Never used Substance Use Topics Alcohol use: No Drug use: Never BP 117/79 Pulse 105 Temp 36.4 ?C (97.6 ?F) Resp 18 Wt 68 kg (149 lb 14.6 oz) SpO2 100% BMI 26.56 kg/m? Review of Systems Constitutional: Negative for chills, fever and malaise/fatigue. HENT: Negative for congestion, ear discharge, ear pain, sinus pain and sore throat. Eyes: Negative for blurred vision, pain, discharge and redness. Respiratory: Negative for cough, hemoptysis, sputum production, shortness of breath, wheezing and stridor. Cardiovascular: Negative for chest pain. (more content not included)...[facility]06-18-2024 History of Present illness Narrative* Ruiz Serrato APRN.MANUAL LATHE OPERATOR - 10/14/2023 12:05 PM EDT Subjective HPI Nontoxic-appearing female presents urgent care chief complaint left foot and ankle swelling. Duration of symptoms 2 days. Associated symptoms swelling and bruising to left foot and ankle. Patient states inverted her ankle going down the stairs. Did not experience any pain. States has neuropathy. Presents today due to persistent swelling and bruising. No other injuries. No knee hip or back pain. No head pain. Did not fall. Patient states history of hammertoe surgery to this foot. No ankle surgeries. Past medical history prescription medications allergies reviewed. 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, unspecified Dysfunction of eustachian tube Essential hypertension, benign Generalized anxiety disorder Anxiety, Generalized Internal hemorrhoids without mention of complication Lumbago Nonspecific abnormal finding in stool contents Ocular migraine Osteoporosis, unspecified Type 2 diabetes mellitus without complication, without long-term current use of insulin (HCC) Unspecified constipation Unspecified essential hypertension Varicose veins of other sites PAST SURGICAL HISTORY Procedure Laterality Date ABDOMINAL SURGERY HX 2004 tummy tuck ANESTHESIA HERNIA REPAIR LOWER ABDOMEN NOS ANKLE SURGERY HX Right 04/2019 Tendon repair BREAST LUMPECTOMY HX Left 01/2020 BREAST LUMPECTOMY HX Bilateral 01/2020 re-excision of margins COIL, EMBOLIZATION 2005 aneurysm COLONOSCOPY W/BIOPSY SINGLE/MULTIPLE 08/12/2007 FASCT PALM W/WO Z-PLASTY TISSUE REARGMT/SKN GRFT Right 01/05/2019 Right 5th finger palmar fasciectomy HAMMERTOE REVISION, ONE TOE Left 2016 HYSTERECTOMY HX 12/03/1988 IRIDOTOMY/IRIDECTOMY BY LASER Right OPEN TREATMENT,TRIMALLEOLAR ANKLE FRACTURE Right 05/29/2018 [facility] PICC LINE INSERT/CONSULT 01/23/2021 PICC LINE INSERT/CONSULT 01/29/2021 REMV CATARACT EXTRACAP,INSERT LENS Bilateral SHX CRANIOTOMY Left 2005 aneurysm TOTAL KNEE REPLACEMENT Right 07/2020 VEIN SURGERY (SPECIFY LOCATION) HX 2009 Dr. Bahena ALLERGIES Codeine, Morphine, and Prozac [Fluoxetine] MEDICATIONS losartan (COZAAR) 50 mg tablet Take 1 tablet by mouth once daily. metFORMIN (GLUCOPHAGE) 500 mg tablet Take 1 tablet by mouth daily with breakfast. For blood sugar. Do not take this medicine if you are not eating. nortriptyline (PAMELOR) 75 mg capsule Take 1 capsule by mouth daily at bedtime. zolpidem (AMBIEN) 10 mg Take 0.5-1 tablets by mouth at bedtime as needed (insomnia) for up to 14 days. Flaxseed Oil oil 1 capsule once daily. exemestane (AROMASIN) 25 mg tablet Take 1 tablet by mouth once daily. TAKE AFTER A MEAL. flaxseed-omega3,6,9-fatty acid 1,300-670-155 mg cap Take 1 capsule by mouth two times a day. aspirin, enteric coated (ASPIRIN, ENTERIC COATED) 81 mg EC tablet Take 81 mg by mouth once daily. yjnz-tycxz-wt5-ulk-jdq-hrje-st (GLUCOSAMINE CHONDROITIN PLUS) [id number] mg cap Take 1 capsule by mouth once daily. folic acid 400 mcg tablet Take 400 mcg by mouth once daily. ascorbic acid, vitamin C, (VITAMIN C) 500 mg tablet Take 500 mg by mouth once daily. Cholecalciferol, Vitamin D3, 125 mcg (5,000 unit) cap Take 5,000 Units by mouth once daily. (Patient not taking: Reported on 09/05/2023) cyanocobalamin (VITAMIN B-12) 100 mcg tab Take 100 mcg by mouth once daily. (Patient not taking: Reported on 09/05/2023) FAMILY HISTORY Problem Relation Age of Onset Breast Cancer Mother 72 Hypertension Mother Alzheimer's Disease Mother Coronary Artery Disease Father Alzheimer's Disease Sister Breast Cancer Maternal Aunt No Ocular Disease Other Social History Tobacco Use Smoking status: Never Smokeless tobacco: Never Vaping Use Vaping Use: Never used Substance Use Topics Alcohol use: No Drug use: Never BP 117/79 Pulse 105 Temp 36.4 C (97.6 F) Resp 18 Wt 68 kg (149 lb 14.6 oz) SpO2 100% BMI 26.56 kg/m Review of Systems Constitutional: Negative for chills, fever and malaise/fatigue. HENT: Negative for congestion, ear discharge, ear pain, sinus pain and sore throat. Eyes: Negative for blurred vision, pain, discharge and redness. Respiratory: Negative for cough, hemoptysis, sputum production, shortness of breath, wheezing and stridor. Cardiovascular: Negative for chest pain. Gastrointestinal: Negative for abdominal pain, diarrhea, nausea and vomiting. Musculoskeletal: Positive for falls and joint pain. Negative for back pain, myalgias and neck pain. Skin: Negative for itching and rash. Neurological: Negative for dizziness and headaches. Objective Physical Exam Constitutional: General: She is not in acute distress. Appearance: She is not toxic-appearing. HENT: Head: Normocephalic. Nose: Nose normal. Eyes: Pupils: Pupils are equal, round, and reactive to light. Cardiovascular: Rate and Rhythm: Normal rate. Pulmonary: Effort: Pulmonary effort is normal. No respiratory distress. Musculoskeletal: Cervical back: Normal range of motion. Left lower leg: Normal. Left ankle: Swelling and ecchymosis present. No deformity. Normal range of motion. Left Achilles Tendon: No defects. Left foot: Normal range of motion and normal capillary refill. Swelling present. No deformity. Comments: No breaks in skin noted. No deformities noted. Brisk capillary refill. No evidence of bacterial infection. Skin: General: Skin is warm and dry. Neurological: General: No focal deficit present. Mental Status: She is alert. ASSESSMENT/PLAN: 1. Acute left ankle pain - ICD9: 719.47, ICD10: M25.572 (primary diagnosis) - XR ANKLE GENERAL 3V AP/LAT/OBL LEFT - XR FOOT GENERAL 3V AP/LAT/OBL LEFT - CONSULT TO PODIATRY 2. Foot pain, left - ICD9: 729.5, ICD10: M79.672 - XR ANKLE GENERAL 3V AP/LAT/OBL LEFT - XR FOOT GENERAL 3V AP/LAT/OBL LEFT - CONSULT TO PODIATRY IMPRESSION: NO EVIDENCE OF ACUTE FRACTURE INVOLVING THE LEFT ANKLE OR FOOT. SIGNIFICANT SOFT TISSUE SWELLING. No fractures noted on x-ray. Degenerative changes noted. Referred to podiatry. Treat as contusion/sprain. Patient was educated on supportive therapies. Patient will follow up with primary care provider as needed. Patient was instructed to immediately proceed to emergency room for any new, worsening, or symptoms lasting longer than anticipated. The patient's clinical presentation is otherwise unremarkable at this time. Based on exam and clinical finding, the patient is stable for discharge. Plan of care was discussed with patient. Patient verbalizes understanding and agrees to plan of care. This note was generated using [employer] software. It may contain errors in wording, punctuation, or spelling. Ruiz Serrato APRN.MANUAL LATHE OPERATOR documented in this encounterWilson [facility]06-[facility] Telephone encounter Note * Telephone Encounter - Paola Duff LPN - 10/14/2023 7:26 AM EDT Encounter routed to PSS to assist patient in scheduling. [facility]06-18[facility] Miscellaneous Notes* Telephone Encounter - Paola Duff LPN - 10/14/2023 7:26 AM EDT Encounter routed to PSS to assist patient in scheduling. * Telephone Encounter - Ruddy Cooper MD - 10/13/2023 4:56 PM EDT Filed order for PT * Telephone Encounter - Birgit Gonzalez LPN - 10/10/2023 9:31 AM EDT No orders showing for the PSRs to schedule pt. Please send in new orders to [facility]. Birgit Gonzalez LPN * Telephone Encounter - Ruddy Cooper MD - 10/09/2023 5:14 PM EDT Patient already has a PT order according to [facility]. Does she need another order? * Telephone Encounter - Paola Duff LPN - 10/03/2023 11:15 AM EDT Patient notified of providers message and verbalized understanding. Patient would like to pursue PT. Please place order * Telephone Encounter - Ruddy Cooper MD - 10/02/2023 5:46 PM EDT No acute or concerning findings on CT of abdomen and pelvis that Bradford ordered when patient seen 09/07. She does have diverticulosis but no signs of inflammation that would be seen in diverticulitis. Diverticulosis was seen on prior CT of abdomen 03/14/21. Since CT negative for intra-abdominal cause, sounds like musculoskeletal cause for pain associated with change in position and coughing. Consider Physical therapy for evaluation and treatment. * Telephone Encounter - Genia Ackerman RN - 10/02/2023 4:28 PM EDT Patient asking pcp to review and advise on CT abd/pel results. documented in this encounterWilson [facility] Hospital06-17-[facility] Telephone encounter Note * Telephone Encounter - Ruddy Cooper MD - 10/13/2023 4:56 PM EDT Filed order for PT [facility]06[facility] Telephone encounter Note* Telephone Encounter - Birgit Gonzalez LPN - 10/10/2023 9:31 AM EDT No orders showing for the PSRs to schedule pt. Please send in new orders to [facility]. Birgit Gonzalez LPN [facility]06-[facility] Telephone encounter Note* Telephone Encounter - Ruddy Cooper MD - 10/09/2023 5:14 PM EDT Patient already has a PT order according to [facility]. Does she need another order? [facility] Telephone encounter Note* Telephone Encounter - Paola Duff LPN - 10/03/2023 11:15 AM EDT Patient notified of providers message and verbalized understanding. Patient would like to pursue PT. Please place order [facility] Telephone encounter Note* Telephone Encounter - Ruddy Cooper MD - 10/02/2023 5:46 PM EDT No acute or concerning findings on CT of abdomen and pelvis that Bradford ordered when patient seen 09/07. She does have diverticulosis but no signs of inflammation that would be seen in diverticulitis. Diverticulosis was seen on prior CT of abdomen 03/14/21. Since CT negative for intra-abdominal cause, sounds like musculoskeletal cause for pain associated with change in position and coughing. Consider Physical therapy for evaluation and treatment. [facility] Telephone encounter Note* Telephone Encounter - Genia Ackerman, RN - 10/02/2023 4:28 PM EDT Patient asking pcp to review and advise on CT abd/pel results. [facility]06[facility] History of Present illness Narrative* Charleen Rocha, PT - 09/29/2023 2:19 PM EDT Program_ID:[id number] Access Code: [email or web address] URL: [email or web address] Date: 09-29-2023 Prepared By: Charleen Rocha Program Notes Exercises - Seated Heel Toe Raises - 2-3 x daily - 7 x weekly - 4 sets - 10 reps - Proper Sit to Stand Technique - 2-3 x daily - 7 x weekly - 3 sets - 5 reps - Seated Long Arc Quad - 2-3 x daily - 7 x weekly - 4 sets - 10 reps * Charleen Rocha, PT - 09/29/2023 1:53 PM EDT Episode Visit Count: 1 Therapist That Will Accept/Oversee The Plan Of Care: Charleen Rocha Start of Care Date: 09/29/23 Onset Date: 01/22/21 Plan of Care Certification Date: 09/29/23 Next Certification Due Date: 11/03/23 Patient Identified by Name and Date of : Yes REHABILITATION AND SPORTS THERAPY PHYSICAL THERAPY EVALUATION PLAN OF CARE: Assessment: Judi Krause presents with diagnosis of gait difficulty and leg weakness that interferes with stair negotiation, walking, bending, walking in the community, walking in the house, risingfrom a chair, standing (balance,) . She presents with impairments in ADL's, balance, gait, independence in exercise, joint mobility, overall function, patient reported outcome measures, range of motion, sensation, strength, and symptom management. PROMIS (Patient-Reported Outcomes Measurement Information System) scores were reviewed and identified as a rehabilitation concern. Prognosis for therapy is Fair due to: clinical presentation, multiple co- morbidities, chronic nature of impairments . She will benefit from skilled therapy services to meet the goals established for this plan of care asnoted below. Goals for Episode of Care: created on 09/29/23 through 11/10/23 Patient will report no falls. Improve score on Timed Up and Go Test to 10 or less seconds using AD to reflect decreased fall risk. Improve score on 30 Second Chair Stand to 10 or more repetitions to reflect decreased fall risk. [place] in home exercise program including cardiovascular exercise. Patient will demonstrate independent and proper use of assisstive device to allow for improved walking quality and safety therefore reducing the risk of falls. Patient Goals: amb in her neighborhood or at the rec center with AD for 10-15 minutes Planned Interventions, Frequency, and Duration: Current Frequency: 2x/week Duration: 6 weeks Total Number of Visits Planned: 12 Planned Treatment Interventions: Gait Training (88665), Self-fdc management (69516), Therapeutic activities (87056), Manual therapy (27596), Neuromuscular re-education (83786), Therapeutic exercise (79796) PLAN FOR NEXT VISIT: DGI and step ups Patient demonstrates good understanding of plan of care and treatment. The above goals and plan of care were discussed and agreed upon by patient/family. SUBJECTIVE: for imbalance following a surgery for intracranial anueurysm and of December 2020. Pt. reports shehad PT and OT come in the home and difficulty with amb. since. She has dc using a cane due to fear of becoming dependent upon it, however she is fearful of falling. She has much difficulty with stair negociation. Patient Goals: amb in her neighborhood or at the rec center with AD for 10-15 minutes Functional Limitations: stair negotiation, walking, bending, walking in the community, walking in the house, rising from a chair, standing (balance,) Prior Level of Function: Independent without limitations Relevant History Past Relevant Medical Conditions: Diabetes, Cancer Home Environment Equipment Owned: Cane (doesn't use) Intake Information: Prescription present Falls Interview: Fall without injury in the last year Falls Intervention: More thorough falls assessment to be performed, Instructed patient on safety and use of assistive device and awareness in regards to falls prevention. Falls History # of falls in past year: 1 # of falls resulting in an injury in past year: 0 Pain: Post Treatment Pain Post Treatment Pain Level: 0 PROMIS Scales 09/29/2023 Higher is Better Phys Func - Score 36 (moderate dysfunction) Phys Func - Percentile 8 Self-Eff Symptom - Score 44 (Average) Self-Eff Symptom - Percentile 27 T-scores: mean of general population = 50. 5 points is clinically meaningfully difference Percentiles provide an indication of how the patient's score ranks in relation to the general population. Higher percentile rankings indicate better function/quality of life. 50th percentile is the average of the general population and indicates half of respondents had a worse score. OBJECTIVE MEASURES WITH LEVEL OF FUNCTION: Sensory Sensory Deficits: (numbness BLE knee to B feet) Mobility Sit To Stand: Modified Independent Stand To Sit: Modified Independent Gait Gait: Stand By Assistance Gait Distance (feet): 50 Gait Device: Cane Gait Deviations: General Deviations General Deviations/Observations: Flexed trunk posture, Chel decreased, Arm swing decreased, Shuffling Gait, Step length decreased, Trunk Control Decreased, Wide base of support Functional Performance Test Results Assistive Device: None 30 Second Chair Stand Test: 5 reps Timed Up and Go (sec): 18 sec Timed Up and Go - Condition 2 (sec) : 18 (with SC) Education: Education Learning Preferences: Demonstration, Explanation, Printed Materials, Performance Barriers: None Learning/educational needs: Gait Training, Plan of Care, Home exercise program, Safety Education Provided: Yes, see treatment interventions for education provided Education Provided To: Patient Education Mode/Type: Demonstration, Explanation/Discussion, Literature/Printed Materials, Performance Response to Education/Teach Back: States/Identifies, Return Demonstration TREATMENT: PT Treatment Interventions: Therapeutic Exercise, Self-Skilled Nursing Management Evaluation Therapeutic Exercise: 1: *Access Code: [email or web address] URL: [email or web address] Date: 09/29/2023 Prepared by: Charleen Santos Exercises - Seated Heel Toe Raises - 2-3 x daily - 7 x weekly - 4 sets - 10 reps - Proper Sit to Stand Technique - 2-3 x daily - 7 x weekly - 3 sets - 5 reps - Seated Long Arc Quad - 2-3 x daily - 7 x weekly - 4 sets - 10 reps Skilled Intervention: Patient was educated in proper exercise technique and purpose for exercises. Skilled judgment was used in selection of appropriate interventions. Provided written instruction for home exercise program to facilitate proper performance and compliance. Correct performance of therapeutic exercises was facilitated with verbal, visual, and tactile cuing. Educated patient on rationale for performing exercises in regards to decreasing fatigue , increase ease of ADL, and ROM and function . Patient education as noted. Self-Skilled Nursing Management: 1: suggestd use of cane 2: discussed TUG scores and fall risk 3: encouraged use of walker outdoors-- this will allow longer distances and buidl stamina 4: how to use cane, and correct adjustment Skilled Intervention: Skilled judgment in the selection of proper modification for activity of daily living/home management based on clinical presentation, deficits, and needs. Provided written instruction for activities of daily living techniques to facilitate proper performance and compliance. Reviewed patient specific diagnosis in relation to activities of daily living/home management. Activity progression based on professional judgement. Provided written instruction for home program to facilitate proper performance and compliance. Correct performance of home program was facilitated with verbal, visual, and tactile cueing. Billing * Evaluation Low Complexity: 1 Unit Therapeutic Exercise Treatment Minutes: 15 Self-Care/Home Management Treatment Minutes: 10 Skilled Treatment Time Minutes (timed and untimed codes): 45 Total Session Time (minutes): 45 Session Start Time : 1348 Session Stop Time : 1433 Charleen Rocha PT documented in this encounterWilson [facility] Hospital06-03-2024 NoteHNO ID: [id number] Author: CHARLEEN ROCHA PT Service: ? Author Type: Physical Therapist Type: Progress Notes Filed: 09/29/2023 15:16 Note Text: Episode Visit Count: 1 Therapist That Will Accept/Oversee The Plan Of Care: Charleen Rocha Start of Care Date: 09/29/23 Onset Date: 01/22/21 Plan of Care Certification Date: 09/29/23 Next Certification Due Date: 11/03/23 Patient Identified by Name and Date of : Yes REHABILITATION AND SPORTS THERAPY PHYSICAL THERAPY EVALUATION PLAN OF CARE: Assessment: Judi Krause presents with diagnosis of gait difficulty and leg weakness that interferes with stair negotiation, walking, bending, walking in the community, walking in the house, rising from a chair, standing (balance,) . She presents with impairments in ADL's, balance, gait, independence in exercise, joint mobility, overall function, patient reported outcome measures, range of motion, sensation, strength, and symptom management. PROMIS? (Patient-Reported Outcomes Measurement Information System) scores were reviewed and identified as a rehabilitation concern. Prognosis for therapy is Fair due to: clinical presentation, multiple co- morbidities, chronic nature of impairments . She will benefit from skilled therapy services to meet the goals established for this plan of care as noted below. Goals for Episode of Care: created on 09/29/23 through 11/10/23 Patient will report no falls. Improve score on Timed Up and Go Test to 10 or less seconds using AD to reflect decreased fall risk. Improve score on 30 Second Chair Stand to 10 or more repetitions to reflect decreased fall risk. [place] in home exercise program including cardiovascular exercise. Patient will demonstrate independent and proper use of assisstive device to allow for improved walking quality and safety therefore reducing the risk of falls. Patient Goals: amb in her neighborhood or at the rec center with AD for 10-15 minutes Planned Interventions, Frequency, and Duration: Current Frequency: 2x/week Duration: 6 weeks Total Number of Visits Planned: 12 Planned Treatment Interventions: Gait Training (58855), Self-fdc management (07881), Therapeutic activities (98139), Manual therapy (47918), Neuromuscular re-education (34063), Therapeutic exercise (32005) PLAN FOR NEXT VISIT: DGI and step ups Patient demonstrates good understanding of plan of care and treatment. The above goals and plan of care were discussed and agreed upon by patient/family. SUBJECTIVE: for imbalance following a surgery for intracranial anueurysm and of December 2020. Pt. reports she had PT and OT come in the home and difficulty with amb. since. She has dc using a cane due to fear of becoming dependent upon it, however she is fearful of falling. She has much difficulty with stair negociation. Patient Goals: amb in her neighborhood or at the rec center with AD for 10-15 minutes Functional Limitations: stair negotiation, walking, bending, walking in the community, walking in the house, rising from a chair, standing (balance,) Prior Level of Function: Independent without limitations Relevant History Past Relevant Medical Conditions: Diabetes, Cancer Home Environment Equipment Owned: Cane (doesn't use) Intake Information: Prescription present Falls Interview: Fall without injury in the last year Falls Intervention: More thorough falls assessment to be performed, Instructed patient on safety and use of assistive device and awareness in regards to falls prevention. Falls History # of falls in past year: 1 # of falls resulting in an injury in past year: 0 Pain: Post Treatment Pain Post Treatment Pain Level: 0 PROMIS Scales 09/29/2023 Higher is Better Phys Func - Score 36 (moderate dysfunction) Phys Func - Percentile 8 Self-Eff Symptom - Score 44 (Average) Self-Eff Symptom - Percentile 27 T-scores: mean of general population = 50. 5 points is clinically meaningfully difference Percentiles provide an indication of how the patient's score ranks in relation to the general population. Higher percentile rankings indicate better function/quality of life. 50th percentile is the average of the general population and indicates half of respondents had a worse score. OBJECTIVE MEASURES WITH LEVEL OF FUNCTION: Sensory Sensory Deficits: (numbness BLE knee to B feet) Mobility Sit To Stand: Modified Independent Stand To Sit: Modified Independent Gait Gait: Stand By Assistance Gait Distance (feet): 50 Gait Device: Cane Gait Deviations: General Deviations General Deviations/Observations: Flexed trunk posture, Chel decreased, Arm swing decreased, Shuffling Gait, Step length decreased, Trunk Control Decreased, Wide base of support Functional Performance Test Results Assistive Device: None 30 Second Chair Stand Test: 5 reps Timed Up and Go (sec): 18 sec Timed Up and Go - Condition 2 (sec) : 1 (more content not included)...[facility]05-31-2024 History of Present illness Narrative* Nelly Pacheco RT(Huy) - 09/26/2023 11:20 AM EDT Radiology Service Progress Note PATIENT NAME: Judi Krause DATE OF SERVICE: September 26, 2023 TIME: 4:16 PM PATIENT IDENTITY VERIFICATION COMPLETED USING TWO (2) IDENTIFIERS: Name and Date of confirmedby patient verbally. FALL SCREENING: Has the patient had 2 falls in the last year or 1 fall with injury or currently using an Ambulatory Assistive Device (Walker, Cane, Wheelchair, Crutches, etc.)? No PATIENT GENDER DATA: Female. status: : No status: NO. PATIENT RELEVANT IMPLANT DATA REVIEWED: Yes PATIENT PRESENTS WITH AN IMPLANTABLE OR ATTACHED SPRAYER HAND: No RADIOLOGY DEPARTMENT: CT; Exam(s) Completed: Abdomen/Pelvis PERIPHERAL IV DATA: Not applicable SIGNED BY: RT Julianna(Huy) September 26, 2023 4:16 PM documented in this encounterWilson Memorial Hospital05-20-2024 Miscellaneous Notes* Telephone Encounter - Bradford Love APRN.DEFLECTOR OPERATOR - 09/15/2023 2:45 PM EDT ok * Telephone Encounter - Paola Duff LPN - 09/15/2023 1:21 PM EDT Patient stopped into the office stating wrong blood pressure medication was called into the pharmacy. She states that Lisinopril was called in and she states she can't take it because it causes kidney stones. She needs Losartan called. Prescription pending if appropriate and please remove lisinopril from her list. documented in this encounterWilson [facility] Hospital05-20-[facility]24 Telephone encounter Note * Telephone Encounter - Bradford Love APRN.CNS - 09/15/2023 2:45 PM EDT ok [facility] Telephone encounter Note* Telephone Encounter - Paola Duff LPN - 09/15/2023 1:21 PM EDT Patient stopped into the office stating wrong blood pressure medication was called into the pharmacy. She states that Lisinopril was called in and she states she can't take it because it causes kidney stones. She needs Losartan called. Prescription pending if appropriate and please remove lisinopril from her list. [facility]05[facility] History of Present illness Narrative* Raphael Perdomo APRN.CNP - 09/10/2023 1:26 PM EDT Chief Complaint Patient presents with: Established Patient HPI: Judi Krause is a 78 year old female who presents here today for follow up breast cancer. Per Dr. Osman's previous note: H/o was seen seen by Dr. Campbell after presenting with LEFT nipple retraction and abnormal calcifications in the RIGHT breast seen on mammograms performed 11/23/19. 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 The cancer cells were strongly ER+ in 99% of cells, strongly NM+ in 99% of cells, and HER2-negative (0 by IHC). Stereotactic biopsy of the right breast with clip placement performed 12/29/19 showed rare atypical intraductal epithelial cells. She was taking estrogen as Estrace. (Stopped November 2019). On 01/28/20 Ms. Krause underwent excision of the right breast lesion as well as left breast central resection and left axillary sentinel node biopsy. Pathology from this procedure showed: Right breast: DCIS with a positive medial margin. Left breast: One (1) of 2 sentinel nodes was involved, with 4 mm of extranodal extension noted. In the left breast resection was a 25 mm Grade 2 invasive ductal carcinoma with lymphovascular invasionpresent. DCIS was present as well. The final medial margin was involved. S/p 1. RIGHT breast re-excision of margins 2. LEFT breast re-excision of margins on 02/11/[address] Aaron Schaeffer Path: FINAL DIAGNOSIS 1. Left breast additional medial margin, resection (A) - Ductal carcinoma in situ, cribriform type, intermediate grade. - The ductal carcinoma in situ is close (0.1 mm) to multiple inked new margins. 2. Right breast additional deep margin, resection (B) - Extensive healing biopsy site changes. No malignancy is identified. 3. Right breast additional medial margin, resection (C) - - Ductal carcinoma in situ solid type, low grade. - The ductal carcinoma in situ is present 1 mm from the new inked margin. - Small intraductal papilloma with associated microcalcifications. - Healing biopsy site changes. Comment: Immunohistochemical stain for ecadherin is performed on part C and is positive in the DCIS confirming ductal origin. Oncotype Dx assay returned a Recurrence Score of 9, in the low risk range. I do not recommend adjuvant chemotherapy. She will return in 6 weeks or so, after completion of radiation therapy, for re-evaluation and to start anastrozole. RADIATION:03/29/20 to 04/27/20 (Done in [place]/Dr. Storm) Bilateral breasts/left SC and axilla. Previous therapy:Arimidex Began 2020 Femara Began September 2022 Stopped d/t fatigue. Current therapy:Aromasin Began 11/2022 No new concerns today. Pt. was prescribed metformin on 09/08/23-she has not started this yet. Her BS today is [id number]. Appetite:Eh. Wt. stable. Energy level:Fair. Denies fevers or recent illness. Resp:denies cough or sob Cardiac:denies chest pain/palpitations GI:denies abd pain occ. pain from mesh s/p abdominoplasty, denies n/v, moving bowel regularly :denies dysuria/hematuria Extrem:b/l hand pain prior to AI, occ. 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 Past medical history, appointments, medications, allergies reviewed. No changes. EXAM: BP 125/87 Pulse 100 Temp 36.5 C (97.7 F) (Temporal) Wt 68.5 kg (151 lb) SpO2 96% BMI 26.75 kg/m APPEARANCE Well appearing, alert, in no acute distress, well-hydrated, well nourished. HEART RRR with normal S1 and S2, no murmurs LUNG clear to auscultation BREAST FEMALE no mass/nodule b/l, L nipple/AC surgically absent/radiation changes, R lower surgicaldefect LYMPH NODES No cervical lymphadenopathy, No supraclavicular lymphadenopathy, and No axillary lymphadenopathy. ABDOMEN bowel sounds normoactive, soft, non-tender EXTREMITIES No edema NEURO Awake, alert and oriented x 3, Normal gait, and No involuntary motions. SKIN Skin color, texture, turgor normal, no suspicious rashes or lesions LABS: Latest Ref Rng 10/03/2022 03/24/2023 09/10/2023 Glucose 74 - 99 mg/dL 181 (H) 152 (H) 473 (H) BUN 7 - 21 mg/dL 23 (H) 19 21 Creatinine 0.58 - 0.96 mg/dL 0.83 0.83 0.76 Sodium 136 - 144 mmol/L 137 137 134 (L) Potassium 3.7 - 5.1 mmol/L 4.1 4.1 4.4 Chloride 97 - 105 mmol/L 99 100 97 CO2 22 - 30 mmol/L 26 29 27 Anion Gap 9 - 18 mmol/L 12 8 (L) 10 Calcium 8.5 - 10.2 mg/dL 9.7 10.2 9.6 eGFR >=60 mL/min/1.73m 73 73 81 ASSESSMENT/PLAN: 1. Invasive ductal carcinoma of breast, left (HCC) - ICD9: 174.9, ICD10: C50.912 (primary diagnosis) 2. Ductal carcinoma in situ (DCIS) of right breast - ICD9: 233.0, ICD10: D05.11 Stage IB, T2N1, grade 2 invasive carcinoma with mixed ductal and lobular features of the left breast s/p lumpectomy and sentinel node biopsy and then re- excision. It's ER positive (99%, strong), NM positive (99%, strong) and Her2/maria a 0. 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 - No concerning findings on exam. - Did not tolerate arimidex or femara d/t fatigue. - Tolerating aromasin fairly well. - Continue aromasin. - Mammogram as scheduled 2023. - Follow up with breast center as scheduled. - Zometa every 6 months x 6 doses total. Today will be dose #6-cancel future zometa infusion. - Follow up as scheduled-cancel labs/zometa. - Pt. aware to call office with any questions/concerns. The patient indicates understanding of these issues and agrees with the plan. All documentation from previous visit of 04/03/23-Dr. Osman/myself was copied and pasted, documentation has been reviewed and edited as necessary for today's visit. Raphael Perdomo APRN.CNP documented in this encounterWilson [facility] Hospital05-13-2024 Instructions* Patient Instructions* Bradford Love APRN.CNS - 09/08/2023 1:45 PM EDT Make 1 medication change at a time. Increase nortriptyline from 50 mg daily to 75 mg daily. Let us know if this is not helping with the sensations in your hands or if any problems with the increased dose. In about 1 week start taking metformin to help control blood sugar. Take this in the morning with breakfast. Let us know if any nausea vomiting or diarrhea with this medication. documented in this encounterWilson [facility] Hospital05-13-[facility]24 History of Present illness Narrative* Bradford Love APRN.CNS - 09/08/2023 1:20 PM EDT SUBJECTIVE: Dilated Retinal Exam Never done Diabetic Foot Exam Never done DTaP,Tdap,Td Vaccine(1 - Tdap) Never done Shingrix Vaccine(1 of 2) Never done RSV Vaccine(1 - 1-dose 60+ series) Never done Pneumococcal Vaccine: 65+(2 of 2 - PCV) due on 05/04/2015 Covid-19 Vaccine(2022- season) due on 12/27/2022 Advance Directive Discussion due on 04/28/2023 HPI Judi Krause is a 78 year old female. PMH significant for ACTIVE PROBLEM LIST Cerebral Aneurysm, Nonruptured Reactive Depression Generalized Anxiety Disorder Osteoporosis, Unspecified Diffuse Cystic Mastopathy Ocular migraine Mixed Hyperlipidemia Vitamin D Deficiency Abnormal Pap Smear of Vagina Edema of Both Legs Venous Insufficiency (Chronic) (Peripheral) Gerd (Gastroesophageal Reflux Disease) Dupuytren's Contracture Infiltrating Ductal Carcinoma of Left Breast (Hcc) Primary Osteoarthritis of Right Knee Status Post Right Knee Replacement Type 2 Diabetes Mellitus With Diabetic Neuropathy, Without Long-Term Current Use of Insulin ([facility]) History of Cva (Cerebrovascular Accident) Dyspepsia Closed Fracture of Ankle Disorder of Tendon of Posterior Tibial Muscle Hammer Toe Insomnia Normochromic Normocytic Anemia Orthostatic Hypotension Posterior Tibial Tendinitis of Right Lower Extremity Primary Generalized Hypertrophic Osteoarthrosis Retention of Urine Walking Difficulty Due to Ankle and Foot Hypertension Physical Debility Presents today for a routine follow-up visit. She reports chronic abdominal pain present for 2-1/2 years. She notes this initially started when she was violently ill 2-2 and half years ago. She was vomiting. Noted subsequently abdominal pain in the area that is worse with movement such as bending over or coughing. She has not felt a mass in her abdomen. She notes the pain can be severe and sharp and worse with twisting type motions or bending at the waist. She reports prior abdominal pain. Pain is present across the entire abdomen anteriorportion. She reports prior surgery was a tummy tuck completed at [facility] in [place]. She is followed by [facility] hematology oncology for breast cancer, last seen April 03, 2023. Has been seen by Dr. Jones neurosurgery regarding known residual aneurysm. MRA was completed 2022. He recommended an MRA, this was completed. Follow up CTA at 2 years recommended to avoid significant artifact. She notes abnormal sensation in her fingers and hands has been helped somewhat with increased dose of nortriptyline but would like to increase it again. Notes she was previously on 100 mg daily. HTN: Withot report of headache, chest pain, palpitations, dyspnea, peripheral edema, orthopnea, fatigue, and PND. Last 14 Encounter BP Readings: Date: BP: 09/05/2023 124/72 05/26/2023 122/80 04/03/2023 123/76 03/24/2023 137/83 02/24/2023 121/78 10/18/2022 114/70 10/03/2022 102/80 06/27/2022 110/70 05/24/2022 104/71 04/18/2022 118/69 03/28/2022 104/68 11/21/2021 121/81 10/23/2021 116/66 10/17/2021 122/64 DIABETES MELLITUS: Reports no prior treatment for DM. Without report of excessive thirst or increased frequency of urination, chest pain or dyspnea , numbness, tingling or pain in extremities, new orunusual visual symptoms, low sugar/hypoglycemic reactions, weight loss/gain, lightheadedness/dizziness, and bowel changes/loose stools. . Patient's last HgA1C was Hemoglobin A1C (%) Date Value 06/25/2023 8.2 03/24/2023 7.2 01/08/2021 6.8 08/01/2020 6.8 ) She notes bilateral leg weakness. Some trouble going up stairs. Review of Systems Constitutional: Negative. Objective BP 132/85 Pulse 108 Resp 16 Wt 68.5 kg (151 lb) BMI 26.75 kg/m Physical Exam Vitals and nursing note reviewed. Constitutional: Appearance: Normal appearance. HENT: Head: Normocephalic and atraumatic. Eyes: Conjunctiva/sclera: Conjunctivae normal. Neck: Thyroid: No thyroid mass or thyromegaly. Cardiovascular: Rate and Rhythm: Normal rate and regular rhythm. Pulses: Carotid pulses are 2+ on the right side and 2+ on the left side. Radial pulses are 2+ on the right side and 2+ on the left side. Heart sounds: Normal heart sounds. Pulmonary: Effort: Pulmonary effort is normal. Breath sounds: Normal breath sounds. Abdominal: General: Bowel sounds are normal. Palpations: Abdomen is soft. Musculoskeletal: Right lower leg: No edema. Left lower leg: No edema. Skin: General: Skin is warm and dry. Neurological: Mental Status: She is alert. Mental status is at baseline. ALLERGIES Allergen Reactions Codeine GI Upset Morphine GI Upset Prozac [Fluoxetine] Intolerance nervousness Medications Flaxseed Oil oil 1 capsule once daily. exemestane (AROMASIN) 25 mg tablet Take 1 tablet by mouth once daily. TAKE AFTER A MEAL. losartan (COZAAR) 50 mg tablet Take 1 tablet by mouth once daily. lisinopril (ZESTRIL) 10 mg tablet Take 1 tablet by mouth once daily. aspirin, enteric coated (ASPIRIN, ENTERIC COATED) 81 mg EC tablet Take 81 mg by mouth once daily. ltpy-khkii-fm4-myh-npa-vdle-st (GLUCOSAMINE CHONDROITIN PLUS) 045-432-47-54 mg cap Take 1 capsule by mouth once daily. ascorbic acid, vitamin C, (VITAMIN C) 500 mg tablet Take 500 mg by mouth once daily. metFORMIN (GLUCOPHAGE) 500 mg tablet Take 1 tablet by mouth daily with breakfast. For blood sugar. Do not take this medicine if you are not eating. nortriptyline (PAMELOR) 75 mg capsule Take 1 capsule by mouth daily at bedtime. zolpidem (AMBIEN) 10 mg Take 0.5-1 tablets by mouth at bedtime as needed (insomnia) for up to 14 days. enteric contrast (will be provided with radiology test) Take 1 Each by mouth one time only for [address] ABD/PEL WO Routine order Administer, As Directed One Time Only, via Oral, Rectal, both Oral and Rectal, Enteric Tube, Stoma or Indwelling Catheter, Enteric Contrast as designated per enteric contrast guidelines Cholecalciferol, Vitamin D3, 125 mcg (5,000 unit) cap Take 5,000 Units by mouth once daily. (Patient not taking: Reported on 09/05/2023) flaxseed-omega3,6,9-fatty acid 1,300-670-155 mg cap Take 1 capsule by mouth twice daily. (Patient not taking: Reported on 09/05/2023) cyanocobalamin (VITAMIN B-12) 100 mcg tab Take 100 mcg by mouth once daily. (Patient not taking: Reported on 09/05/2023) folic acid 400 mcg tablet Take 400 mcg by mouth once daily. (Patient not taking: Reported on 09/05/2023) PAST MEDICAL HISTORY Diagnosis Date Anatomical narrow angle glaucoma Aneurysm (HCC) 4 ruptured BCC (basal cell carcinoma), trunk chest; Dr. 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, unspecified Dysfunction of eustachian tube Essential hypertension, benign Generalized anxiety disorder Anxiety, Generalized Internal hemorrhoids without mention of complication Lumbago Nonspecific abnormal finding in stool contents Ocular migraine Osteoporosis, unspecified Type 2 diabetes mellitus without complication, without long-term current use of insulin (HCC) Unspecified constipation Unspecified essential hypertension Varicose veins of other sites Social History Tobacco Use Smoking status: Never Smokeless tobacco: Never Vaping Use Vaping Use: Never used Substance Use Topics Alcohol use: No Drug use: Never The 10-year ASCVD risk score (Natividad CHAVIRA, et al., 2019) is: 43.9% Values used to calculate the score: Age: 78 years Sex: Female Is Non- : No Diabetic: Yes Tobacco smoker: No Systolic Blood Pressure: 132 mmHg Is BP treated: Yes HDL Cholesterol: 32 mg/dL Total Cholesterol: 180 mg/dL Latest Ref Rng 03/24/2023 06/25/2023 Protein, Total 6.3 - 8.0 g/dL 7.2 Albumin 3.9 - 4.9 g/dL 4.2 Calcium 8.5 - 10.2 mg/dL 10.2 9.8 Bilirubin, Total 0.2 - 1.3 mg/dL 0.4 Alkaline Phosphatase 34 - 123 U/L 46 AST 13 - 35 U/L 24 ALT 7 - 38 U/L 21 Glucose 74 - 99 mg/dL 152 (H) 179 (H) BUN 7 - 21 mg/dL 19 20 Creatinine 0.58 - 0.96 mg/dL 0.83 0.87 Sodium 136 - 144 mmol/L 137 136 Potassium 3.7 - 5.1 mmol/L 4.1 4.7 Chloride 97 - 105 mmol/L 100 99 CO2 22 - 30 mmol/L 29 25 Anion Gap 9 - 18 mmol/L 8 (L) 12 eGFR >=60 mL/min/1.73m 73 69 WBC 3.70 - 11.00 k/uL 7.29 RBC 3.90 - 5.20 m/uL 4.93 Hemoglobin 11.5 - 15.5 g/dL 15.0 Hematocrit 36.0 - 46.0 % 44.7 MCV 80.0 - 100.0 fL 90.7 MCH 26.0 - 34.0 pg 30.4 MCHC 30.5 - 36.0 g/dL 33.6 RDW-CV 11.5 - 15.0 % 12.8 Platelet Count 150 - 400 k/uL 350 MPV 9.0 - 12.7 fL 8.5 (L) Absolute nRBC <0.01 k/uL <0.01 Cholesterol, Total <200 mg/dL 180 Triglyceride <150 mg/dL 226 (H) HDL Cholesterol >39 mg/dL 32 (L) Non HDL Cholesterol <130 mg/dL 148 (H) Fasting Time hrs 13 VLDL Cholesterol <30 mg/dL 45 (H) TC:HDL Ratio <5.10 5.63 (H) LDL Cholesterol <100 mg/dL 103 (H) LDL:HDL Ratio <2.54 3.22 (H) Creatinine, Ur Random (UCRR) 20.0 - 300.0 mg/dL 88.4 Albumin, Urine Random mg/L 23.4 Albumin/Creat Ratio <30 mg/g 26 Hemoglobin A1C 4.3 - 5.6 % 7.2 (H) 8.2 (H) Estimated Average Glucose mg/dL 160 189 Vitamin D 25 Hydroxy 31.0 - 80.0 ng/mL 34.5 ASSESSMENT/PLAN: 1. Primary hypertension - ICD9: 401.9, ICD10: I10 (primary diagnosis) Currently well controlled Continues on losartan. ASSESSMENT/PLAN: 1. Screening for diabetic retinopathy - ICD9: V80.2, ICD10: Z13.5 - CONSULT TO OPHTHALMOLOGY 2. Encounter for immunization - ICD9: V03.89, ICD10: Z23 - RSV PRINTED PHARMACY INSTRUCTIONS - PNEUMOCOCCAL VACCINE, 20 VALENT (PREVNAR 20) - [employer] COVID-19 VACCINE (2022- SEASON) AGE 12+ YR 3. Type 2 diabetes mellitus with diabetic neuropathy, without long-term current use of insulin (HCC) - ICD9: 250.60, 357.2, ICD10: E11.40(primary diagnosis) No prior treatment for diabetes. Recommend metformin once daily take with breakfast. Check A1c in 3months and return for visit. Provided with written information regarding diet and self-care with DM. - METFORMIN 500 MG TABLET - HEMOGLOBIN A1C - NORTRIPTYLINE 75 MG CAPSULE 4. Insomnia, unspecified type - ICD9: 780.52, ICD10: G47.00 Stable, currently controlled, continue to monitor. - ZOLPIDEM 10 MG TABLET 5. History of abdominal surgery - ICD9: V45.89, ICD10: Z98.890 - CT ABD/PEL WO IVCON - ENTERIC CONTRAST (RADIOLOGY PROCEDURE) 6. Abdominal pain, chronic, generalized - ICD9: 789.07, 338.29, ICD10: R10.84, G89.29 She reports generalized abdominal pain present for 2 and half years following illness where she hadsevere nausea and vomiting. Now present with movement such as twisting or bending over, sharp pain moderately severe the last 30 to 60 seconds. No mass noted per patient or palpated on exam. It is possible there is a hernia that is not palpable present in her abdomen. Endorse CT for further evaluation - CT ABD/PEL WO IVCON - ENTERIC CONTRAST (RADIOLOGY PROCEDURE) 7. 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) - ICD9: 174.9, ICD10: C50.912 She is followed by oncology. - NORTRIPTYLINE 75 MG CAPSULE 8. Gait difficulty - ICD9: 781.2, ICD10: R26.9 9. Complaints of leg weakness - ICD9: 729.89, ICD10: R29.898 - CONSULT TO PHYSICAL THERAPY Make 1 medication change at a time. Increase nortriptyline from 50 mg daily to 75 mg daily. Let us know if this is not helping with the sensations in your hands or if any problems with the increased dose. In about 1 week start taking metformin to help control blood sugar. Take this in the morning with breakfast. Let us know if any nausea vomiting or diarrhea with this medication. Bradford Love APRN.DEFLECTOR OPERATOR Medical Decision Making: Problems: Moderate: New problem with uncertain prognosis and 2+ stable chronic illnesses Data: Unique test(s) ordered: 1 Risk: Moderate: Drug management Medical Decision Making Level: 4 - Moderate documented in this encounterWilson [facility] Hospital02-16-2024 Miscellaneous Notes* Telephone Encounter - Genia Ackerman RN - 06/13/2023 8:55 AM EST Phoned pt and given provider's message below with verbalized understanding. Pt states she will givethis some thought and let pcp know. Reports her toes are always cold- but everyone in her family has cold toes. Reports the top of her left leg, front and sides, dull pain, hurt when she gets into a car, but feels better once she is seated. * Telephone Encounter - Ruddy Cooper MD - 06/12/2023 11:29 PM EST Added result note. In case patient cannot see it: Study was compared to one done 06/19/2021 and Remains normal bilaterally. Test mentioned mildly dampened at toes, but impression was normal. If has pain with activity that seems to be from issues with circulation, can refer for testing withactivity or refer to vascular to discuss further testing. So the above test does not confirm severe PAD that the screening test that she had done showed. * Telephone Encounter - Birgit Gonzalez LPN - 06/11/2023 1:59 PM EST Pt calling for results on testing done in vas lab on 06-04-23. Please advise pt. Birgit Gonzalez LPN documented in this encounterWilson [facility] Hospital01-29-2024 Instructions* Patient Instructions* Ruddy Cooper MD - 05/26/2023 4:55 PM EST Topical magnesium and oral magnesium can help with muscle cramping. Theraworx is one of the brands. Avoid bending from the back--bend from hips so not shortening the abdominal muscles. Do stretching exercises for abdominal muscles. documented in this encounterWilson [facility] Hospital01-29-2024 History of Present illness Narrative* Ruddy Cooper MD - 05/26/2023 4:06 PM EST This note was created using [employer]. Subjective Judi Krause is a 78 year old female. Patient presents with: 3 mo follow up SUBJECTIVE: Judi Krause is a 78 year old year old lady here today for 3 month follow up appointment for review of medical conditions. Reviewed that had signify health PAD screening and checked normal but numbers for Right 1.12 and left 0.27. Noted pain upper leg in thigh on left with trying to lift leg like trying to get in car. Noted skin lesion that healed with what looks like crust that does not resolve. Had bled when firstnoted and wiped over area with a towel while showering. Not very active so has not noted claudication with walking that does do. Reviewed had evaluation of carotids, etc when had carotid studies when had cerebral angiogram in 2020. Had acupuncture to treat tinnitus. Had helped her symptoms so not so loud and is okay now though still present. Can sleep okay. Noted since had issues from aneurysm and dry heaving in 2020, gets like a muscles along the lower abdomen, sides and upper abdomen with change of position like getting out of a chair. Makes it worse to touch abdomen. Happens almost every everyday. Only thing can do is try to relax till pain resolves. Happens when leans forward to get out of bed. Had prior tummy tuck so wonders if from that. This was done 20 years ago. 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, unspecified Dysfunction of eustachian tube Essential hypertension, benign Generalized anxiety disorder Anxiety, Generalized Internal hemorrhoids without mention of complication Lumbago Nonspecific abnormal finding in stool contents Ocular migraine Osteoporosis, unspecified Type 2 diabetes mellitus without complication, without long-term current use of insulin (HCC) Unspecified constipation Unspecified essential hypertension Varicose veins of other sites Current Outpatient Medications Medication Sig nortriptyline (PAMELOR) 50 mg capsule Take 1 capsule by mouth daily at bedtime. exemestane (AROMASIN) 25 mg tablet Take 1 tablet by mouth once daily. TAKE AFTER A MEAL. losartan (COZAAR) 50 mg tablet Take 1 tablet by mouth once daily. vitamin A (AQUASOL A) 10,000 unit capsule Take 10,000 Units by mouth once daily. vitamin b complex capsule Take 1 capsule by mouth once daily. TURMERIC ORAL Take 1 tablet by mouth once daily. zolpidem (AMBIEN) 10 mg Take 0.5-1 tablets by mouth at bedtime as needed (insomnia) for up to 14 days. lisinopril (ZESTRIL) 10 mg tablet Take 1 tablet by mouth once daily. iv contrast (will be provided with radiology test) MRA Brain Inject, intravenously, once for 1 dose. No IV access, insert saline lock prior to the beginning of sedation, infusion, injection of imaging exam. Discontinue saline lock post exam. If Pt. has a central line or IVAD, may access for administration according to line specific nursing protocol. Once exam is complete flush line and de-access according to line specific nursing protocol in the MR contrast administration guidelines link. (Patient not taking: Reported on 12/24/2022) Cholecalciferol, Vitamin D3, 125 mcg (5,000 unit) cap Take 5,000 Units by mouth once daily. flaxseed-omega3,6,9-fatty acid 1,300-670-155 mg cap Take 1 capsule by mouth twice daily. aspirin, enteric coated (ASPIRIN, ENTERIC COATED) 81 mg EC tablet Take 81 mg by mouth once daily. cyanocobalamin (VITAMIN B-12) 100 mcg tab Take 100 mcg by mouth once daily. kayd-sfrpl-wy1-bkc-tmr-ousf-st (GLUCOSAMINE CHONDROITIN PLUS) 869-275-81-54 mg cap Take 1 capsule by mouth once daily. folic acid 400 mcg tablet Take 400 mcg by mouth once daily. ascorbic acid, vitamin C, (VITAMIN C) 500 mg tablet Take 500 mg by mouth once daily. No current facility-administered medications for this visit. Review of Systems Objective BP 122/80 Pulse 74 Resp 16 Wt 69.4 kg (153 lb) BMI 27.10 kg/m Last 5 Encounter Wt Readings: Date: Wt: 05/26/2023 69.4 kg (153 lb) 04/03/2023 68.9 kg (152 lb) 02/24/2023 69.8 kg (153 lb 14.4 oz) 12/24/2022 66.7 kg (147 lb) 10/18/2022 68.9 kg (152 lb) No waist measurement recorded Estimated body mass index is 27.1 kg/m as calculated from the following: Height as of 12/24/22: 160 cm (5' 3). Weight as of this encounter: 69.4 kg (153 lb). Last 5 Encounter BP Readings: Date: BP: 05/26/2023 122/80 04/03/2023 123/76 03/24/2023 137/83 02/24/2023 121/78 10/18/2022 114/70 Physical Exam Constitutional: Appearance: Normal appearance. HENT: Head: Normocephalic. Eyes: Conjunctiva/sclera: Conjunctivae normal. Cardiovascular: Rate and Rhythm: Normal rate and regular rhythm. Heart sounds: Normal heart sounds. Pulmonary: Effort: Pulmonary effort is normal. Breath sounds: Normal breath sounds. Skin: General: Skin is warm and dry. Neurological: General: No focal deficit present. Mental Status: She is alert and oriented to person, place, and time. Psychiatric: Mood and Affect: Mood normal. Behavior: Behavior normal. Thought Content: Thought content normal. Judgment: Judgment normal. Assessment and Plan Encounter Diagnosis ICD-10-CM 1. Peripheral arterial disease (HCC) I73.9 CANCELED: [facility] Abnormal screening test done through insurance. Left severe 0.,27; right normal 1.12 but confirmingthis study to verify right normal. 2. Primary hypertension I10 COMP METABOLIC PANEL CBC Well controlled. Continue management 3. Type 2 diabetes mellitus with diabetic neuropathy, without long-term current use of insulin (HCC) E11.40 HGB A1C COMP METABOLIC PANEL ALBUMIN/CREAT RATIO RND UR Controlled. Continue present management 4. Tinnitus of both ears H93.13 Acpuncture appears to be helping. 5. Vitamin D deficiency E55.9 VITAMIN D 25 HYDROXY Continue to adjust dose as needed based on labs 6. Mixed hyperlipidemia E78.2 LIPID PANEL BASIC Check labs. Further eval and tx as needed 7. Muscle cramping R25.2 Abdominal cramping since had dry heaves before.Discussed could be related to tummy tuck surgery had, Refer to general surgeon as needed Above issues addressed with patient. Patient involved in shared decision making for management of medical issues. History and medications reviewed. Epic updated as needed Refills and/or prescriptions taken care of and meds adjusted as indicated after reviewed history, exam and labs. Health Maintenance reviewed. Updated record and/or ordered tests as recorded. Encouraged on efforts at healthy diet and regular exercise and adequate sleep. I spent a total of at least 42 minutes on the date of the service which included [id number] patient care, completing clinical documentation, obtaining and/or reviewing separately obtained history, performing a medically appropriate examination, counseling and educating the patient/family/caregiver, ordering medications, tests, or procedures, independently interpreting results (not separately reported), and communicating results to the patient/family/caregiver. Ruddy Cooper MD documented in this encounterWilson Memorial Hospital12-07-2023 History of Present illness Narrative* Sarah Lloyd LPN - 04/03/2023 2:04 PM EST Est. Pt. Discuss recent labs 6 month F/U Sarah Lloyd LPN * Raphael Perdomo, SHAHID.MANUAL LATHE OPERATOR - 04/03/2023 1:45 PM EST Chief Complaint Patient presents with: Established Patient HPI: Judi Krause is a 78 year old female who presents here today for follow up breast cancer. Per Dr. Osman's previous note: H/o was seen seen by Dr. Campbell after presenting with LEFT nipple retraction and abnormal calcifications in the RIGHT breast seen on mammograms performed 11/23/19. 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 The cancer cells were strongly ER+ in 99% of cells, strongly NM+ in 99% of cells, and HER2-negative (0 by IHC). Stereotactic biopsy of the right breast with clip placement performed 12/29/19 showed rare atypical intraductal epithelial cells. She was taking estrogen as Estrace. (Stopped November 2019). On 01/28/20 Ms. Krause underwent excision of the right breast lesion as well as left breast central resection and left axillary sentinel node biopsy. Pathology from this procedure showed: Right breast: DCIS with a positive medial margin. Left breast: One (1) of 2 sentinel nodes was involved, with 4 mm of extranodal extension noted. In the left breast resection was a 25 mm Grade 2 invasive ductal carcinoma with lymphovascular invasionpresent. DCIS was present as well. The final medial margin was involved. S/p 1. RIGHT breast re-excision of margins 2. LEFT breast re-excision of margins on 02/11/[address] Aaron Schaeffer Path: FINAL DIAGNOSIS 1. Left breast additional medial margin, resection (A) - Ductal carcinoma in situ, cribriform type, intermediate grade. - The ductal carcinoma in situ is close (0.1 mm) to multiple inked new margins. 2. Right breast additional deep margin, resection (B) - Extensive healing biopsy site changes. No malignancy is identified. 3. Right breast additional medial margin, resection (C) - - Ductal carcinoma in situ solid type, low grade. - The ductal carcinoma in situ is present 1 mm from the new inked margin. - Small intraductal papilloma with associated microcalcifications. - Healing biopsy site changes. Comment: Immunohistochemical stain for ecadherin is performed on part C and is positive in the DCIS confirming ductal origin. Oncotype Dx assay returned a Recurrence Score of 9, in the low risk range. I do not recommend adjuvant chemotherapy. She will return in 6 weeks or so, after completion of radiation therapy, for re-evaluation and to start anastrozole. RADIATION:03/29/20 to 04/27/20 (Done in [place]/Dr. Storm) Bilateral breasts/left SC and axilla. Previous therapy:Arimidex Began 2020 Femara Began September 2022 Stopped d/t fatigue. Current therapy:Aromasin Began 11/2022 No new concerns today. Appetite:Ok. Energy level:Fair. Denies fevers or recent illness. Resp:denies cough or sob Cardiac:denies chest pain/palpitations GI:denies abd pain occ. pain from mesh s/p abdominoplasty, denies n/v, moving bowel regularly :denies dysuria/hematuria Extrem:b/l hand pain prior to AI, occ. 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 Past medical history, appointments, medications, allergies reviewed. No changes. EXAM: BP 123/76 Pulse 77 Temp 36.3 C (97.4 F) Wt 68.9 kg (152 lb) BMI 26.93 kg/m APPEARANCE Well appearing, alert, in no acute distress, well-hydrated, well nourished. HEART RRR with normal S1 and S2, no murmurs LUNG clear to auscultation BREAST FEMALE no mass/nodule b/l, L nipple/AC surgically absent/radiation changes, R lower surgicaldefect LYMPH NODES No cervical lymphadenopathy, No supraclavicular lymphadenopathy, and No axillary lymphadenopathy. ABDOMEN bowel sounds normoactive, soft, non-tender EXTREMITIES No edema NEURO Awake, alert and oriented x 3, Normal gait, and No involuntary motions. SKIN Skin color, texture, turgor normal, no suspicious rashes or lesions ASSESSMENT/PLAN: 1. Invasive ductal carcinoma of breast, left (HCC) - ICD9: 174.9, ICD10: C50.912 (primary diagnosis) 2. Ductal carcinoma in situ (DCIS) of right breast - ICD9: 233.0, ICD10: D05.11 Stage IB, T2N1, grade 2 invasive carcinoma with mixed ductal and lobular features of the left breast s/p lumpectomy and sentinel node biopsy and then re- excision. It's ER positive (99%, strong), NM positive (99%, strong) and Her2/maria a 0. 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 - No concerning findings on exam. - Did not tolerate arimidex or femara d/t fatigue. - Continue aromasin. - Mammogram as scheduled 2023. - Imaging per surgeon at main. Follow up as scheduled. - Zometa every 6 months x 6 doses total. Has had 5 doses so far. - Follow up as scheduled. - Pt. aware to call office with any questions/concerns. The patient indicates understanding of these issues and agrees with the plan. All documentation from previous visit of 10/03/22-Dr. Osman/myself was copied and pasted, documentation has been reviewed and edited as necessary for today's visit. Raphael Perdomo APRN.DESIRAE documented in this encounterWilson [facility] Hospital11-14-2023 Miscellaneous Notes* Telephone Encounter - Melani Zuniga RN - 03/11/2023 9:59 AM EST Called patient regarding recently completed MRA that Dr. Jones reviewed and visualized stability of treated and untreated aneurysms. He further recommends 2 year follow-up CTA (to avoid significant artifact from previous clips). Patient agrees. Discussed f/up scheduled with Graeme WEST on 03/27. Patient states she was not going to attend but have her daughter do it for her. Discussed that we do need the patient available at the time of the appointment. She states that she would prefer to cancel and opt for appointment at the next interval. Encouraged to call with any questions prior to next follow-up point. Melani Zuniga RN documented in this encounterWilson Memorial Hospital11-02-2023 History of Present illness Narrative* Julianne Longoria RT(Huy) - 02/27/2023 11:20 AM EDT Radiology Service Progress Note DATE OF SERVICE: February 27, 2023 TIME: 12:12 PM PATIENT IDENTITY VERIFICATION COMPLETED USING TWO (2) STANDARD IDENTIFIERS: Name and Date of confirmed by patient verbally. FALL SCREENING: Has the patient had 2 falls in the last year or 1 fall with injury or currently using an Ambulatory Assistive Device (Walker, Cane, Wheelchair, Crutches, etc.)? No PATIENT GENDER DATA: Female. status: : No status: NO. PATIENT RELEVANT IMPLANT DATA REVIEWED: Yes ALLERGIES: Reviewed and unchanged CONTRAST ALLERGY: NO. EXAM: MRI - CONTRAST TYPE: GROUP II PERIPHERAL IV DATA: Ambulatory: A peripheral IV was started in the Right forearm with a Angio cath:22 gauge. RADIOLOGY DEPARTMENT: MR; Exam(s) Completed: Head: [place] MRA SIGNATURE: RT Bridget(Huy) PATIENT NAME: Judi Krause DATE: February 27, 2023 TIME: 12:12 PM documented in this encounterWilson Memorial Hospital11-01-2023 Miscellaneous Notes* Telephone Encounter - Beronica Navarro - 02/26/2023 10:29 AM EDT Patient scheduled. Closing encounter. * Telephone Encounter - Kiana Mcpherson LPN - 02/26/2023 10:18 AM EDT Detailed message left for patient to call office need to scheduled the next two 3 month follow up appointments with Dr. Cooper. documented in this encounterWilson Memorial Hospital09-08-2023 NoteIMPRESSION: INCOMPLETE: NEEDS ADDITIONAL IMAGING EVALUATION The post-surgical scar in the right breast is indeterminate. An ultrasound is recommended. There is no abnormality seen in the right breast to correspond with the pain in the outer aspect, however, ultrasound is recommended. The area of pain is not entirely included on these mammogram images. LIMITED ULTRASOUND OF RIGHT BREAST: 01/03/2023 RESULT: Comparison is made to exams dated: 07/24/2022 mammogram - [facility], [facility], and [facility]28[facility] - [facility]. Real-time ultrasound of the right breast was performed. Targeted ultrasound of the 6:00 position, 2 cm from the nipple demonstrates a 3.4 x 1.8 x 2.4 cm mixed echogenic mass. This has the appearance of an oil cyst/postsurgical change and correlates with the mammogram. Targeted ultrasound of the upper outer quadrant at the site of the patient's reported pain demonstrates no suspicious sonographic abnormality. There is a 0.5 x 0.3 x 0.6 cm intramammary lymph node at the 10:00 position, 10 cm from the nipple. Although this is in the area, the patient's area of pain is much larger than this suggesting this may be an incidental finding. IMPRESSION: BENIGN FINDING Oil cyst/postsurgical change in the 6:00 position. Benign intramammary lymph node. There is no sonographic evidence of malignancy. A 1 year screening mammogram is recommended. Enrike melgoza/nate:01/03/2023 14:33:05 Multiple national specialty organizations have released breast cancer screening guidelines for women at average risk for developing breast cancer - guidelines that are based on both evidence and opinion, yet differ on when to start and how often to screen for breast cancer. With representation from Breast Imaging, Internal Medicine, Women's Health, Family Medicine, and Medical/Surgical Oncology, the [facility] has carefully reviewed the data and reached the following consensus: 1) All women should engage in shared decision-making with their providers to decide when to start and how often to screen; 2) All women should have the opportunity to start screening mammography at age 40; 3) For women ages 45-55, we recommend annual screening mammograms; 4) For women ages 55 and over, we support both the transition from an annual to a biennial interval if this aligns more with patient's values and preferences, or continuation with annual screening; 5) All women should discuss with their providers when to stop screening mammograms. Spike Driver(s): Samaria Sierra RT(R)(M), [facility]; Apurva Kelley RT(R)(M), [facility] OVERALL STUDY BIRADS: 2 Benign finding Director Of Strategic Marketing: Nate Transcribe Date/Time: Jan 03 2023 12:19P Dictated by: ENRIKE BETTS MD This examination was interpreted and the report reviewed and electronically signed by: ENRIKE BETTS MD on Jan 03 2023 2:33PM [facility] DIVISION OF [id number] NoteIMPRESSION: INCOMPLETE: NEEDS ADDITIONAL IMAGING EVALUATION The post-surgical scar in the right breast is indeterminate. An ultrasound is recommended. There is no abnormality seen in the right breast to correspond with the pain in the outer aspect, however, ultrasound is recommended. The area of pain is not entirely included on these mammogram images. LIMITED ULTRASOUND OF RIGHT BREAST: 01/03/2023 RESULT: Comparison is made to exams dated: 07/24/2022 mammogram - [facility], [facility], and [facility] Real-time ultrasound of the right breast was performed. Targeted ultrasound of the 6:00 position, 2 cm from the nipple demonstrates a 3.4 x 1.8 x 2.4 cm mixed echogenic mass. This has the appearance of an oil cyst/postsurgical change and correlates with the mammogram. Targeted ultrasound of the upper outer quadrant at the site of the patient's reported pain demonstrates no suspicious sonographic abnormality. There is a 0.5 x 0.3 x 0.6 cm intramammary lymph node at the 10:00 position, 10 cm from the nipple. Although this is in the area, the patient's area of pain is much larger than this suggesting this may be an incidental finding. IMPRESSION: BENIGN FINDING Oil cyst/postsurgical change in the 6:00 position. Benign intramammary lymph node. There is no sonographic evidence of malignancy. A 1 year screening mammogram is recommended. Enrike melgoza/nate:01/03/2023 14:33:05 Multiple national specialty organizations have released breast cancer screening guidelines for women at average risk for developing breast cancer - guidelines that are based on both evidence and opinion, yet differ on when to start and how often to screen for breast cancer. With representation from Breast Imaging, Internal Medicine, Women's Health, Family Medicine, and Medical/Surgical Oncology, the [facility] has carefully reviewed the data and reached the following consensus: 1) All women should engage in shared decision-making with their providers to decide when to start and how often to screen; 2) All women should have the opportunity to start screening mammography at age 40; 3) For women ages 45-55, we recommend annual screening mammograms; 4) For women ages 55 and over, we support both the transition from an annual to a biennial interval if this aligns more with patient's values and preferences, or continuation with annual screening; 5) All women should discuss with their providers when to stop screening mammograms. Spike Driver(s): RT Tania(R)(M), [facility]; RT Miriam(R)(M), [facility] OVERALL STUDY BIRADS: 2 Benign finding Director Of Strategic Marketing: Ntae Transcribe Date/Time: Jan 03 2023 12:19P Dictated by: ENRIKE BETTS MD This examination was interpreted and the report reviewed and electronically signed by: ENRIKE BETTS MD on Jan 03 2023 2:33PM [facility] DIVISION OF [id number] History of Present illness Narrative* Apurva Kelley Tech - 01/03/2023 1:00 PM EDT Radiology Service Progress Note PATIENT NAME: Judi Krause DATE OF SERVICE: January 03, 2023 TIME: 1:18 PM PATIENT IDENTITY VERIFICATION COMPLETED USING TWO (2) IDENTIFIERS: Name and Date of confirmedby patient verbally. FALL SCREENING: Has the patient had 2 falls in the last year or 1 fall with injury or currently using an Ambulatory Assistive Device (Walker, Cane, Wheelchair, Crutches, etc.)? No PATIENT GENDER DATA: Female. status: : No status: NO. PATIENT RELEVANT IMPLANT DATA REVIEWED: Yes RADIOLOGY DEPARTMENT: Mammography PERIPHERAL IV DATA: Not applicable SIGNED BY: Mindi Pineda January 03, 2023 1:18 PM documented in this encounterWilson Memorial Hospital08-29-2023 History of Present illness Narrative* Sheela Celeste PA-C - 12/24/2022 9:30 AM EDT MEDICAL BREAST PATIENT NAME: Judi Krause HISTORY of PRESENT ILLNESS: Judi Krause is a 77 year old year old postmenopausal female who presents to the [facility] [place] today for follow up. The patient denies any breast masses, pain, skin changes or nipple discharge. She is reportedly planning fat grafting through an outside facility 01/13/2023. She has a history of BILATERAL (left Stage IB T2N1; right Stage 0 Tis) breast cancer in 2019. BREAST CANCER HISTORY: 11/23/2019 she presented with a self discovered lump in the LEFT breast and had bilateral diagnosticimaging with left ultrasound showing a 0.8 cm simple cyst at 1:00 and a 0.5 cm simple cyst at 12:00; at the time patient also reported concern for redness and left nipple inversion and therefore a surgical consult was recommended. However, there were also new clustered pleomorphic calcifications onthe RIGHT which were recommended for stereotactic biopsy. 12/03/2019 she had a LEFT nipple skin excision showing grade 2 IDC which was ER+(99%)/NM+( 99%)/HER2-. 12/29/2019 she went on to a RIGHT stereotactic core biopsy which showed rare atypical intraductal epithelial cells with thin sclerosed ducts with focal mucin. 01/26/2020 she had a preop breast MRI showing the lesion in the right breast at 6:00(site of biopsy-proven atypia) which was suspicious of malignancy and surgical consult was recommended; the mass within the left breast in the retroareolar region was consistent with the biopsy-proven malignancy. 01/28/2020 she subsequently had a left lumpectomy with SLNB and right excisional biopsyper Dr. Lim. Pathology on the LEFT showed 2.5 cm grade 2 invasive mammary carcinoma with mixedductal and lobular features 1/2 SLN were involved by macrometastasis (9mm largest deposit; 4mm JULIANNA). The medial margin was positive for DCIS. LVI was present. Pathology on the RIGHT showed 5 cm grade3 DCIS with a positive posterior margin (1mm). 02/11/2020 she went back for reexcision of margins bilaterally. Further discussion with Dr. Lim resulted in no further surgical excision, however she did receive adjuvant XRT bilaterally. Her OncotypeDX score was 9, corresponding to a 12% risk of distant recurrence at 10 years, therefore she did not receive adjuvant chemotherapy. 03/01/2020: Judi Krause's Common Hereditary Cancers Panel through [employer] was negative for a deleterious mutation. 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 Pre-operative MRI: 01/26/2020 she had a preop breast MRI showing the lesion in the right breast at 6:00 (site of biopsy-proven atypia) which was suspicious of malignancy and surgical consult was recommended; the mass within the left breast in the retroareolar region was consistent with the biopsy-proven malignancy. Has Patient had Genetic Testing? Yes; negative gene-panel testing as above Neoadjuvant Chemotherapy: none Radiation Therapy: Whole breast irradiation Adjuvant Chemotherapy: none. Adjuvant Hormonal Therapy: Started Anastrozole in 04/2020; switched to Letrozole 09/2022 due to intolerance; subsequently then switched to Aromasin 11/2022 (tolerating well) and is planned for 5-10 years. Oncotype recurrence score: 9 corresponding to a 12% risk of distant recurrence at 10 years. History pertaining to prior breast biopsies, genetic reports, pathology reports, treatment summaries, personal, social and family history has been extracted from my note dated 11/29/2021. Her vitamin D level was Vitamin D 25 Hydroxy (ng/mL) Date Value 11/18/2022 43.4 06/11/2021 25.7 She takes vitamin D 50,000 units. BMD: Yes, Date in Epic: 05/04/2018; lowest T Score - normal; she is receiving adjuvant Zometa Q6 months x 6 doses. 11/04/2022 BMD lowest T score - 1.1 (osteopenia) PERSONAL BREAST HISTORY: Past breast history (prior to this encounter) is as follows: Breast biopsy: Yes, 12/03/2019 left nipple skin excision for cancer diagnosis as above. 12/29/2019 right stereotactic biopsy showing rare atypical intraductal epithelial cells with sclerosed ducts with focal mucin (excised). Breast cysts: No Breast surgery: Yes, 01/28/2020 left lumpectomy with SLNB and right excisional biopsy. 02/11/2020 reexcision of margins bilaterally. Breast cancer: Yes, left Stage IB T2N1; right Stage 0 Tis, treated as above CANCER SURVEILLANCE: Mammograms: Yes, Date in [facility]: 11/29/2021; [facility] results - negative Breast MRI: Yes, Date in [facility]: 01/26/2020; results - as above Colonoscopy: Yes, Date in [facility]: 08/19/2017; results - multiple polyps; pathology reports not available to review RISK FACTORS FOR BREAST CANCER: Age at the onset of menses: 13 years of age. P: 3 Age at the of first child: 21 years of age. She breast fed. Age at menopause: Not stated. Post-menopausal hormone therapy: Yes, Estrace (unknown amount of time; stopped 11/2019) She is S/P total hysterectomy (per her report; reason not stated) History of Mantle Radiation prior to the age of 31: No Obesity: No, Body mass index is 26.04 kg/m . Current Weight: 147 lbs Mammographic density: There are scattered fibroglandular densities Personal History of Benign Atypical Breast Biopsy: No Alcohol use: Never PAST MEDICAL HISTORY: PAST MEDICAL HISTORY Diagnosis Date Anatomical narrow angle glaucoma Aneurysm (HCC) 4 ruptured BCC (basal cell carcinoma), trunk chest; Dr. 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, unspecified Dysfunction of eustachian tube Essential hypertension, benign Generalized anxiety disorder Anxiety, Generalized Internal hemorrhoids without mention of complication Lumbago Nonspecific abnormal finding in stool contents Ocular migraine Osteoporosis, unspecified Type 2 diabetes mellitus without complication, without long-term current use of insulin (HCC) Unspecified constipation Unspecified essential hypertension Varicose veins of other sites Patient specifically denies history of: DVT, PE, migraine headaches WITH AURA, migraine headaches without aura, abnormal uterine bleeding, abnormal uterine biopsies. She does have osteopenia. PAST SURGICAL HISTORY: PAST SURGICAL HISTORY Procedure Laterality Date ABDOMINAL SURGERY HX 2004 tummy tuck ANESTHESIA HERNIA REPAIR LOWER ABDOMEN NOS ANKLE SURGERY HX Right 04/2019 Tendon repair BREAST LUMPECTOMY HX Left 01/2020 BREAST LUMPECTOMY HX Bilateral 01/2020 re-excision of margins COIL, EMBOLIZATION 2005 aneurysm COLONOSCOPY W/BIOPSY SINGLE/MULTIPLE 08/12/2007 FASCT PALM W/WO Z-PLASTY TISSUE REARGMT/SKN GRFT Right 01/05/2019 Right 5th finger palmar fasciectomy HAMMERTOE REVISION, ONE TOE Left 2016 HYSTERECTOMY HX 12/03/1988 IRIDOTOMY/IRIDECTOMY BY LASER Right OPEN TREATMENT,TRIMALLEOLAR ANKLE FRACTURE Right 05/29/2018 [facility] PICC LINE INSERT/CONSULT 01/23/2021 PICC LINE INSERT/CONSULT 01/29/2021 REMV CATARACT EXTRACAP,INSERT LENS Bilateral SHX CRANIOTOMY Left 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 Bahena SOCIAL HISTORY: Social History Tobacco Use Smoking status: Never Smokeless tobacco: Never Vaping Use Vaping Use: Never used Substance Use Topics Alcohol use: No Drug use: Never Caffeine intake: Never Exercise: Physically active but no regular exercise program. FAMILY HISTORY: Family history of breast cancer: Mother (age not stated) Family history of ovarian cancer: None Number of sisters: 4 Number of maternal aunts: 6 Number of paternal aunts: 0 Ashkenazi Ancestry: No Has Patient had Genetic Testing? Yes; negative gene-panel testing as above Other Cancer: None There is no family history of prostate, colon, uterine, pancreatic, gastric, brain, renal cell or thyroid cancer. There is no family history of melanoma, sarcoma or leukemia. Osteoporosis: None Stroke: None Blood Clot: None Heart attack: None Thyroid Nodule or Goiter: None Autism: None FAMILY HISTORY Problem Relation Age of Onset Breast Cancer Mother 72 Hypertension Mother Alzheimer's Disease Mother Coronary Artery Disease Father Alzheimer's Disease Sister Breast Cancer Maternal Aunt No Ocular Disease Other MEDICATIONS: exemestane (AROMASIN) 25 mg tablet Take 1 tablet by mouth once daily. TAKE AFTER A MEAL. losartan (COZAAR) 50 mg tablet Take 1 tablet by mouth once daily. lisinopril (ZESTRIL) 10 mg tablet Take 1 tablet by mouth once daily. zolpidem (AMBIEN) 10 mg Take 0.5-1 tablets by mouth at bedtime as needed (insomnia) for up to 14 days. nortriptyline (PAMELOR) 50 mg capsule Take 1 capsule by mouth daily at bedtime. iv contrast (will be provided with radiology test) MRA Brain Inject, intravenously, once for 1 dose. No IV access, insert saline lock prior to the beginning of sedation, infusion, injection of imaging exam. Discontinue saline lock post exam. If Pt. has a central line or IVAD, may access for administration according to line specific nursing protocol. Once exam is complete flush line and de-access according to line specific nursing protocol in the MR contrast administration guidelines link. vitamin A (AQUASOL A) 10,000 unit capsule Take 10,000 Units by mouth once daily. Cholecalciferol, Vitamin D3, 125 mcg (5,000 unit) cap Take 5,000 Units by mouth once daily. flaxseed-omega3,6,9-fatty acid 1,300-670-155 mg cap Take 1 capsule by mouth twice daily. aspirin, enteric coated (ASPIRIN, ENTERIC COATED) 81 mg EC tablet Take 81 mg by mouth once daily. cyanocobalamin (VITAMIN B-12) 100 mcg tab Take 100 mcg by mouth once daily. vitamin b complex capsule Take 1 capsule by mouth once daily. gwqw-cxxtz-aq9-ggq-rvg-pbro-st (GLUCOSAMINE CHONDROITIN PLUS) 838-204-93-54 mg cap Take 1 capsule by mouth once daily. TURMERIC ORAL Take 1 tablet by mouth once daily. folic acid 400 mcg tablet Take 400 mcg by mouth once daily. ascorbic acid, vitamin C, (VITAMIN C) 500 mg tablet Take 500 mg by mouth once daily. ALLERGIES: ALLERGIES Allergen Reactions Codeine GI Upset Morphine GI Upset Prozac [Fluoxetine] Intolerance nervousness REVIEW OF SYSTEMS: She denies chest pain, shortness of breath, persistent cough, severe headaches, unusual bony pains,abdominal pain or unintentional weight loss. PHYSICAL EXAM: Ht 160 cm (5' 3) Wt 66.7 kg (147 lb) BMI 26.04 kg/m General: well-nourished, healthy, female, alert and oriented x 3, calm Skin: warm, dry, skin color, texture, turgor normal Head/Eyes: normocephalic, atraumatic and anicteric Breasts and Regional Lymph Nodes: The patient was examined in the upright and supine positions. There is no concerning supraclavicular, infraclavicular or axillary lymphadenopathy. The breasts are symmetrical in appearance without visible skin or nipple changes. She is s/p left lumpectomy with SLNB; the left nipple is surgically absent. There is no evidence of local recurrence on the left. She iss/p right lumpectomy; on the right there is a new 3cm horizontal area of firm tissue at 6 o'clock 2.5cmfn. There are no dominant breast masses or nipple discharge on the right. The breasts were mildly tender bilaterally (non- focal). There was mild to moderate fibrocystic change throughout. Chest - clear Cor - rrr, no m/r/g IMAGING: Bilateral diagnostic imaging with right ultrasound was ordered today to evaluate the clinical area noted above. I do not have the ability to add patients on for same day imaging at [facility] today and therefore her imaging will be scheduled at the soonest available appointment. There are scattered fibroglandular densities. Assessment IMPRESSION/PLAN: Judi Krause is a 77 year old year old female with bilateral fibrocystic change, use of Exemestane, and personal history of BILATERAL breast cancer (left Stage IB T2N1; right Stage 0 Tis) s/p bilateral lumpectomy. She will return for bilateral diagnostic imaging with right ultrasound at the first available appointment. If her imaging is negative/benign, she will continue to be followed annually in the [facility] for clinical evaluation and annual screening mammograms, alternating with her Medical Oncologyteam. Genetics referral made: No: Reason: Negative gene panel testing as above Chemoprevention discussion: She is taking adjuvant anastrozole (began 05/17/2020) which is managed by her medical oncologist. The patient is advised to exercise regularly, achieve/maintain ideal body weight, and to limit alcohol consumption to less than 7 drinks weekly for breast cancer risk reduction and overall health. Due to location preference, she will be scheduled in [place] for first available diagnostic imaging appointment. If imaging is negative/benign, she will follow up with Raphael Perdomo 02/2023 asscheduled. She will then be seen by Wesly Sepulveda (at [facility]) in one year for her annual exam. She will call me in the interim should she have any questions or concerns. I spent a total of 35 minutes on the date of the service which included preparing to see the patient, [id number] patient care, completing clinical documentation, performing a medically appropriate examination, counseling and educating the patient/family/caregiver, and ordering medications, tests,or procedures. Sheela Celeste PA-C Medical Breast Specialist CC: Ruddy Cooper [address] [place] [address] documented in this encounterWilson Memorial Hospital08-29-2023 Instructions* Patient Instructions* Lisbet Landry LPN - 12/24/2022 9:18 AM EDT BREAST CANCER SCREENING If you have remaining breast tissue, an annual screening mammogram and clinical breast exam by yourbreast provider is recommended. Option for mammography include digital mammograms and digital breast tomosynthesis. Single view mammograms are recommended if you have had a mastectomy with tissue flap reconstruction. Mammograms are not necessary if you have had a mastectomy with implant reconstruction. Breast MRI is NOT ROUTINELY recommended for screening following a cancer diagnosis and is NOT recommended for women who have undergone bilateral mastectomy procedures unless otherwise clinically indicated. MRI is recommended for breast cancer survivors with remaining breast tissue who: Have a history if chest irradiation under the age of 30. Carry genetic mutations conferring increased cancer risk (BRCA1, BRCA2, PTEN, TP53, CDH1, STK11, PALB2, CHEK2, BRAIN) Per [facility] High Risk Care Path recommendations, screening breast MRI may be considered for women under the age of 65 with remaining breast tissue in the following situations: Patients who were under the age of 50 at the time of their breast cancer diagnosis Patients with mammographically dense tissue (BI-RADS category 3 or 4) Patients with a history of invasive lobular breast cancer GENETIC TESTING Approximately 10% of all breast cancers in the [place] are due to inherited genetic mutations. BRCA 1 and BRCA 2 are the most common genes associated with hereditary breast and ovarian cancer risk, but other genes known to increase breast cancer risk have also been identified. A certified genetic counselor can help decide if you are a candidate for testing, especially if your breast cancer was diagnosed prior to the age of 50 you had triple negative breast cancer you have a personal or family history of ovarian cancer you have a family member with a known genetic mutation you have a person or family history of male breast cancer you are of Ashkenazi Bahai descent HEALTHY LIFESTYLE MANAGEMENT (per NCCN Guidelines Version 1.2017 for Survivorship) All survivors should be encouraged to achieve and maintain a healthy lifestyle with attention to weight management, physical activity, and healthy dietary habits. Healthy Lifestyle habits have been associated with overall health and quality of life. For some cancers, a healthy lifestyle has been associated with a reduced risk of recurrence and . For a healthy lifestyle, all survivors should be encouraged to: Achieve and maintain a healthy body weight throughout life. Strive for at least 150 minutes of moderate or 75 minutes of vigorous activity per week. Maintain a healthy diet high in fruits, vegetables, and whole grains and low in red and processed meats, sugars, and fat in order to promote weight control and avoid obesity. Limit alcohol intake to less than one drink per day. Avoid tobacco products. Practice sun safety. Obtain 6-7 hours of sleep per night. Follow up with primary care physician regularly. WHEN TO CALL Tests may become necessary in some point of time. We encourage you to call with any new questions or concerns, particularly if your symptoms are worsening or have lasted longer than two weeks. Specifically, please report: breast or chest wall lumps, skin changes, swelling, or nipple discharge unexplained nausea or vomiting unexplained localized bone pain unexplained cough or shortness of breath unexplained swelling in your arm(s) unexplained and persistent headaches Breast Cancer Support and Resources Many resources are available in the community and offer an array of programs including support groups and community education programs. All of them have web sites you can access for additional information. These include but are not limited to: The [facility] Comprehensive Breast Cancer Program - my.[email or web address]/services/iwpztp-jfmxvy-luzpjxe [facility] - komenneneio.org Swiss Cancer Society - cancer.org SONI Breast Cancer Foundations - jdbcfoundation.org FORCE - facingourrisk.org [place] - brightpink.org Young Survival Coalition - youngsurvival.org 4th Lul - 4thangel.org [facility] [place] - touchedbycancer.org ([place] [employer] [place]) The [facility] - thevictorycenter.org ([place] area) [place] [facility] - yellowbrickplace.org ([place] area) [facility] - [facility].org ([place] area) If you would like to compliment one of our caregivers you encountered today, you may do so at [email or web address]. Thank you ! documented in this encounterWilson Memorial Hospital08-29-2023 Nurse Note* Lisbet Landry LPN - 12/24/2022 9:17 AM EDT Last mammogram on: 11/29/2021 Results: See Report Is the patient active on Gojihart Yes Electronically Signed By: Lisbet Landry LPN In Department: BREAST CENTER REVIEW OF PATIENT HISTORY: OB History T0 L3 SAB0 IAB0 Ectopic1 Multiple0 Live Births0 Comment: All 3 vaginal deliveries. 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, unspecified Dysfunction of eustachian tube Essential hypertension, benign Generalized anxiety disorder Anxiety, Generalized Internal hemorrhoids without mention of complication Lumbago Nonspecific abnormal finding in stool contents Ocular migraine Osteoporosis, unspecified Type 2 diabetes mellitus without complication, without long-term current use of insulin (HCC) Unspecified constipation Unspecified essential hypertension Varicose veins of other sites PAST SURGICAL HISTORY Procedure Laterality Date ABDOMINAL SURGERY HX 2004 tummy tuck ANESTHESIA HERNIA REPAIR LOWER ABDOMEN NOS ANKLE SURGERY HX Right 04/2019 Tendon repair BREAST LUMPECTOMY HX Left 01/2020 BREAST LUMPECTOMY HX Bilateral 01/2020 re-excision of margins COIL, EMBOLIZATION 2005 aneurysm COLONOSCOPY W/BIOPSY SINGLE/MULTIPLE 08/12/2007 FASCT PALM W/WO Z-PLASTY TISSUE REARGMT/SKN GRFT Right 01/05/2019 Right 5th finger palmar fasciectomy HAMMERTOE REVISION, ONE TOE Left 2016 HYSTERECTOMY HX 12/03/1988 IRIDOTOMY/IRIDECTOMY BY LASER Right OPEN TREATMENT,TRIMALLEOLAR ANKLE FRACTURE Right 05/29/2018 [facility] PICC LINE INSERT/CONSULT 01/23/2021 PICC LINE INSERT/CONSULT 01/29/2021 REMV CATARACT EXTRACAP,INSERT LENS Bilateral SHX CRANIOTOMY Left 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 Bahena Social History Tobacco Use Smoking status: Never Smokeless tobacco: Never Vaping Use Vaping Use: Never used Substance Use Topics Alcohol use: No Drug use: Never documented in this encounterWilson Memorial Hospital08-28-2023 Miscellaneous Notes* Telephone Encounter - Melani Zuniga RN - 12/23/2022 9:53 AM EDT Mychart unread. Will send letter. Melani Zuniga RN documented in this encounterWilson Memorial Hospital08-10-2023 Miscellaneous Notes* Telephone Encounter - Kay Madden RN - 12/05/2022 4:06 PM EDT Spoke with patient, she is aware of Rx. Questions answered. She will pick and shovel man and start and will call us with any update. Lori Madden RN Disposition: per Dr. Clayton, patient directed to: Manage at home. Provided instructions and will call back. Kay Madden RN * Telephone Encounter - Polo Clayton DO - 12/05/2022 2:27 PM EDT She can try examestane. Chemically, it is a little different than anastrozole and letrozole. Hopefully she will tolerate it better. Polo Clayton DO * Telephone Encounter - Kay Madden RN - 12/03/2022 3:37 PM EDT Patient returned call. States the same side effects as note below. She states she took a break from Letrozole for about 4 days and started feeling better, no fatigue,no feeling out of breath. States back to feeling perfect She states this pill is giving her the same side effects as the last one but not as bad. She is wondering if there are other options. Lori Madden RN * Telephone Encounter - Malu Calhoun RN - 11/27/2022 2:01 PM EDT Called patient, no answer, left a VM requesting a call back from patient. Malu Calhoun RN * Telephone Encounter - Liliane Alcantara - 11/27/2022 12:10 PM EDT Patient states she is currently taking letrozole with side effects of fatigue, tire easily, sometimes she has to sit down to catch her breath when she is working around the house. She is asking for adrug that does not have side effects. documented in this encounterWilson Memorial Hospital08-01-2023 Miscellaneous Notes* Telephone Encounter - Marylin Camacho LPN - 11/26/2022 9:24 AM EDT Pt notified of results and provider message. Pt voiced understanding. Marylin Camacho LPN * Telephone Encounter - Paty Jason RN - 11/25/2022 4:00 PM EDT Spoke with patient's daughter, Sade. Given message from provider's office. She verbalizes understanding but prefers patient receives lab results directly. Attempted to contact patient. No answer. Left message to call back for results. Paty Jason RN * Telephone Encounter - Susie Panchal OCCA - 11/25/2022 2:07 PM EDT Per phone notes, TC to patients primary contact for medical information, her daughter Sade. No answer, left VM to return call to office regarding patients lab results. JOSE Macdonald * Telephone Encounter - Kiana Mcpherson LPN - 11/22/2022 4:36 PM EDT LEFT MESSAGE FOR PATIENT TO CALL OFFICE. * Telephone Encounter - Bradford Love APRN.CNS - 11/22/2022 3:59 PM EDT Please let her know that CBC is in acceptable range. Metabolic panel overall in acceptable range with some slight elevation of glucose and calcium. Vitamin D is within normal range. Hemoglobin A1c has increased a bit. For now would recommend avoiding sugar in her diet, limit portion sizes of bread potatoes rice and pasta and exercise such as walking as able daily to help keep this in control. Component Latest Ref Rng & Units 03/28/2022 03/29/2022 04/18/2022 10/03/2022 11/18/2022 WBC 3.70 - 11.00 k/uL 9.72 7.62 RBC 3.90 - 5.20 m/uL 4.89 4.93 Hemoglobin 11.5 - 15.5 g/dL 14.7 15.0 Hematocrit 36.0 - 46.0 % 46.0 46.0 MCV 80.0 - 100.0 fL 94.1 93.3 MCH 26.0 - 34.0 pg 30.1 30.4 MCHC 30.5 - 36.0 g/dL 32.0 32.6 RDW-CV 11.5 - 15.0 % 12.7 12.7 Platelet Count 150 - 400 k/uL 405 (H) 361 MPV 9.0 - 12.7 fL 8.8 (L) 8.9 (L) Neut% % 69.8 67.1 Abs Neut (ANC) 1.45 - 7.50 k/uL 6.78 5.12 Lymph% % 18.2 21.0 Abs Lymph 1.00 - 4.00 k/uL 1.77 1.60 Thayer% % 8.8 8.3 Abs Thayer <0.87 k/uL 0.86 0.63 Eosin% % 2.0 2.8 Abs Eosin <0.46 k/uL 0.19 0.21 Baso% % 0.6 0.4 Abs Baso <0.11 k/uL 0.06 0.03 Immature Gran % % 0.6 0.4 IMMATURE GRANS (ABS) <0.10 k/uL 0.06 0.03 NRBC /100 WBC 0.0 0.0 Absolute nRBC <0.01 k/uL <0.01 <0.01 DTYPE Auto Auto Protein, Total 6.3 - 8.0 g/dL 7.7 7.1 Albumin 3.9 - 4.9 g/dL 4.3 4.2 Calcium 8.5 - 10.2 mg/dL 10.4 (H) 10.0 9.7 10.3 (H) Bilirubin, Total 0.2 - 1.3 mg/dL 0.3 0.3 Alkaline Phosphatase 34 - 123 U/L 52 49 AST 13 - 35 U/L 32 27 ALT 7 - 38 U/L 20 19 Glucose 74 - 99 mg/dL 106 (H) 191 (H) 181 (H) 136 (H) BUN 7 - 21 mg/dL 27 (H) 20 23 (H) 13 Creatinine 0.58 - 0.96 mg/dL 1.02 (H) 0.74 0.83 0.86 Sodium 136 - 144 mmol/L 138 137 137 139 Potassium 3.7 - 5.1 mmol/L 4.6 4.2 4.1 4.3 Chloride 97 - 105 mmol/L 98 98 99 100 CO2 22 - 30 mmol/L 23 26 26 24 Anion Gap 9 - 18 mmol/L 17 13 12 15 eGFR >=60 mL/min/1.73m 57 (L) 84 73 70 Total Cholesterol, Nonfasting <200 mg/dL 262 (H) Triglycerides, Nonfasting <150 mg/dL 344 (H) HDL Cholesterol, Nonfasting >39 mg/dL 38 (L) LDL Cholesterol, Nonfasting <100 mg/dL 155 (H) Non HDL Cholesterol, Nonfasting <130 mg/dL 224 (H) VLDL Cholesterol, Nonfasting <30 mg/dL 69 (H) Total Chol/HDL Ratio, Nonfasting <5.10 mg/dL 6.89 (H) LDL/HDL Ratio, Nonfasting <2.54 mg/dL 4.08 (H) Creatinine, Ur Random (UCRR) 20.0 - 300.0 mg/dL 136.9 Albumin, Urine Random mg/L <12.0 Albumin/Creat Ratio <30 mg/g <9 Hemoglobin A1C 4.3 - 5.6 % 6.3 (H) 6.8 (H) Estimated Average Glucose mg/dL 134 148 Vitamin D 25 Hydroxy 31.0 - 80.0 ng/mL 28.2 (L) 43.4 documented in this encounterWilson Memorial Hospital06-23-2023 History of Present illness Narrative* Bradford Love APRN.DEFLECTOR OPERATOR - 10/18/2022 1:20 PM EDT SUBJECTIVE: DILATED RETINAL EXAM Never done DIABETIC FOOT EXAM Never done DTAP,TDAP,TD(1 - Tdap) Never done SHINGRIX VACCINE(1 of 2) Never done ADVANCE DIRECTIVE DISCUSSION due on 04/28/2022 HBA1C due on 09/26/2022 HPI Judi Krause is a 77 year old female. PMH significant for ACTIVE PROBLEM LIST Cerebral Aneurysm, Nonruptured Reactive Depression Generalized Anxiety Disorder Osteoporosis, Unspecified Diffuse Cystic Mastopathy Ocular migraine Mixed Hyperlipidemia Vitamin D Deficiency Abnormal Pap Smear of Vagina Edema of Both Legs Venous Insufficiency (Chronic) (Peripheral) Gerd (Gastroesophageal Reflux Disease) Dupuytren's Contracture Infiltrating Ductal Carcinoma of Left Breast (Hcc) Primary Osteoarthritis of Right Knee Status Post Right Knee Replacement Type 2 Diabetes Mellitus With Diabetic Neuropathy, Without Long-Term Current Use of Insulin ([facility]) History of Cva (Cerebrovascular Accident) Dyspepsia Closed Fracture of Ankle Disorder of Tendon of Posterior Tibial Muscle Hammer Toe Insomnia Normochromic Normocytic Anemia Orthostatic Hypotension Posterior Tibial Tendinitis of Right Lower Extremity Primary Generalized Hypertrophic Osteoarthrosis Retention of Urine Walking Difficulty Due to Ankle and Foot Hypertension Physical Debility Presents today for a routine follow-up visit. HPI excerpted from previous visits: She was admitted to [facility] neurosurgery service for recurrent left SCA aneurysm, subarachnoid hemorrhage January 22 through February 02, 2021. She was admitted to [facility] February 02 through February 27, 2021. Past medical history significant for multiple recurring and cerebral aneurysms with previous coiling, anxiety depression type 2 diabetes narrow angle glaucoma infiltrating ductal left breast cancer status post lumpectomy and now on Arimidex hypertension osteoarthritis obesity and GERD who was scheduled for an elective cerebral angiogram with web embolization of a known left SCA aneurysm. Procedure was complicatedby extravasation of contrast during the procedure. She was admitted to the neuro ICU for SAH/IVH post embolization. She developed hydrocephalus and had an external ventricular drain placed. The drain was removed on January 30, 2021. While in the hospital she developed UTI related to Jose placement,this was treated with Bactrim. She also had hyponatremia and was started on sodium chloride tablets3 g 3 times daily. She had delirium and was placed on Seroquel at at bedtime. Seen by PT OT and ST and transfer to acute rehab unit was recommended. She arrived at the inpatient acute rehab unit at [facility] on February 02, 2021. On arrival she was somnolent not motivated for therapy as well as confused. Had little recall of what it happened to her. She had a Jose catheter maintained for urine retention and was noted to be constipated. It was determined that her high dose of Pamelor may have been contributing to this and this was tapered by 25 mg weekly. Please see extensive discharge summary from acute rehab. She was noted to be significantly improved and discharged to home with scheduled appointments with Monae Dennis endovascular neurology and [facility] hematology oncology.She was also advised to follow-up with Dr. Cooper following discharge from [facility]. Seen in [facility] emergency department yesterday for abdominal discomfort and tachycardia, worsening breathing issues. CT completed of chest and abdomen negative for PE no acute process in abdomen CBC and CMPwere in acceptable range. Urinalysis negative. COVID-19 testing negative. She was discharged home with reassurance and advised close follow-up. Presents today with her son and significant other. [facility]. She does have home health care coming out. This is going well. Notes that she would like to stop taking some of her current medications. Some of these were started during the hospital and feelsthese are no longer needed. Without complaint regarding abdominal pain. Notes sleeping about 6 hours a night, falling asleep around 8:00 p.m. and waking early though. Eating and drinking normally. No report of urinary retentionconstipation or other GI complaints today. No noted confusion or delirium symptoms currently. Feelsshe is improving but not yet back to baseline. Today reports she is in her usual state of health. Weight is stable. No neurological complaints. Surgery: Bilateral breast reconstruction. Diagnosis: Bilateral breast cancer diagnosed 2019. 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 Status post partial mastectomy and Austni to left breast irradiation. 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 Surgeon: Dr. Erik Courtney Location: [facility] orthopedic [facility] Anesthesia: General Pre-op visit or labs: Outpatient. No lab work, states no anesthesia visit. CP: no SOB: no Functional capacity: stable, able to take 2 flight of stair and walk a flat surface without chest pain or shortness of breath on exertion. 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 Has been seen by Dr. Jones neurosurgery regarding known residual aneurysm. MRA was completed 2021. He recommended an MRA in 1 year. Presents today with concern regarding lisinopril as possible because of prior kidney stone. No current flank or back pain. She was seen by Dr. Maki at [facility] August 2021 for hydronephrosis with renal and ureteral calculus.Cystoscopy, balloon dilation of the Left ureter, Left ureteroscopy basket extraction of stone and LEFT stent placement. She had resolution at that time and norecurrence. Review of notes indicates she was taking lisinopril at that time. She relates speaking with someone in the lobby while getting her car fixed and advised her lisinopril had caused a kidneystone for her. She states an insurance company employee also told her this. She would like to try an alternate medication for blood pressure due to concerns regarding lisinopril. Patient's last HgA1C was Hemoglobin A1C (%) Date Value 03/28/2022 6.3 10/17/2021 6.5 01/08/2021 6.8 08/01/2020 6.8 ) Review of Systems Constitutional: Negative. Objective BP 114/70 Pulse 96 Resp 16 Wt 68.9 kg (152 lb) BMI 25.95 kg/m Physical Exam Vitals and nursing note reviewed. Constitutional: Appearance: Normal appearance. HENT: Head: Normocephalic and atraumatic. Eyes: Conjunctiva/sclera: Conjunctivae normal. Neck: Thyroid: No thyroid mass or thyromegaly. Cardiovascular: Rate and Rhythm: Normal rate and regular rhythm. Pulses: Carotid pulses are 2+ on the right side and 2+ on the left side. Radial pulses are 2+ on the right side and 2+ on the left side. Heart sounds: Normal heart sounds. Pulmonary: Effort: Pulmonary effort is normal. Breath sounds: Normal breath sounds. Abdominal: General: Bowel sounds are normal. Palpations: Abdomen is soft. Musculoskeletal: Right lower leg: No edema. Left lower leg: No edema. Skin: General: Skin is warm and dry. Neurological: Mental Status: She is alert. Mental status is at baseline. ALLERGIES Allergen Reactions Codeine GI Upset Morphine GI Upset Prozac [Fluoxetine] Intolerance nervousness Medications losartan (COZAAR) 50 mg tablet Take 1 tablet by mouth once daily. letrozole (FEMARA) 2.5 mg tablet Take 1 tablet by mouth once daily. lisinopril (ZESTRIL) 10 mg tablet Take 1 tablet by mouth once daily. zolpidem (AMBIEN) 10 mg Take 0.5-1 tablets by mouth at bedtime as needed (insomnia) for up to 14 days. nortriptyline (PAMELOR) 50 mg capsule Take 1 capsule by mouth daily at bedtime. iv contrast (will be provided with radiology test) MRA Brain Inject, intravenously, once for 1 dose. No IV access, insert saline lock prior to the beginning of sedation, infusion, injection of imaging exam. Discontinue saline lock post exam. If Pt. has a central line or IVAD, may access for administration according to line specific nursing protocol. Once exam is complete flush line and de-access according to line specific nursing protocol in the MR contrast administration guidelines link. vitamin A (AQUASOL A) 10,000 unit capsule Take 10,000 Units by mouth once daily. Cholecalciferol, Vitamin D3, 125 mcg (5,000 unit) cap Take 5,000 Units by mouth once daily. flaxseed-omega3,6,9-fatty acid 1,300-670-155 mg cap Take 1 capsule by mouth twice daily. aspirin, enteric coated (ASPIRIN, ENTERIC COATED) 81 mg EC tablet Take 81 mg by mouth once daily. cyanocobalamin (VITAMIN B-12) 100 mcg tab Take 100 mcg by mouth once daily. vitamin b complex capsule Take 1 capsule by mouth once daily. risg-[id number]-[id number]-vkdx-st (GLUCOSAMINE CHONDROITIN PLUS) 756-962-66-54 mg cap Take 1 capsule by mouth once daily. TURMERIC ORAL Take 1 tablet by mouth once daily. folic acid 400 mcg tablet Take 400 mcg by mouth once daily. ascorbic acid, vitamin C, (VITAMIN C) 500 mg tablet Take 500 mg by mouth once daily. 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, unspecified Dysfunction of eustachian tube Essential hypertension, benign Generalized anxiety disorder Anxiety, Generalized Internal hemorrhoids without mention of complication Lumbago Nonspecific abnormal finding in stool contents Ocular migraine Osteoporosis, unspecified Type 2 diabetes mellitus without complication, without long-term current use of insulin (HCC) Unspecified constipation Unspecified essential hypertension Varicose veins of other sites Social History Tobacco Use Smoking status: Never Smokeless tobacco: Never Vaping Use Vaping Use: Never used Substance Use Topics Alcohol use: No Drug use: Never The ASCVD Risk score (Natividad DK, et al., 2019) failed to calculate for the following reasons: The patient has a prior ME or stroke diagnosis Component Latest Ref Rng & Units 10/17/2021 10/23/2021 03/28/2022 03/29/2022 04/18/2022 WBC 3.70 - 11.00 k/uL 7.03 9.72 RBC 3.90 - 5.20 m/uL 4.70 4.89 Hemoglobin 11.5 - 15.5 g/dL 14.2 14.7 Hematocrit 36.0 - 46.0 % 43.9 46.0 MCV 80.0 - 100.0 fL 93.4 94.1 MCH 26.0 - 34.0 pg 30.2 30.1 MCHC 30.5 - 36.0 g/dL 32.3 32.0 RDW-CV 11.5 - 15.0 % 12.8 12.7 Platelet Count 150 - 400 k/uL 313 405 (H) MPV 9.0 - 12.7 fL 8.7 (L) 8.8 (L) Neut% % 69.8 Abs Neut (ANC) 1.45 - 7.50 k/uL 6.78 Lymph% % 18.2 Abs Lymph 1.00 - 4.00 k/uL 1.77 Thayer% % 8.8 Abs Thayer <0.87 k/uL 0.86 Eosin% % 2.0 Abs Eosin <0.46 k/uL 0.19 Baso% % 0.6 Abs Baso <0.11 k/uL 0.06 Immature Gran % % 0.6 IMMATURE GRANS (ABS) <0.10 k/uL 0.06 NRBC /100 WBC 0.0 Absolute nRBC <0.01 k/uL <0.01 <0.01 DTYPE Auto Protein, Total 6.3 - 8.0 g/dL 7.1 7.7 Albumin 3.9 - 4.9 g/dL 4.2 4.3 Calcium 8.5 - 10.2 mg/dL 10.3 (H) 9.2 10.4 (H) 10.0 Bilirubin, Total 0.2 - 1.3 mg/dL 0.4 0.3 Alkaline Phosphatase 34 - 123 U/L 51 52 AST 13 - 35 U/L 28 32 ALT 7 - 38 U/L 20 20 Glucose 74 - 99 mg/dL 151 (H) 179 (H) 106 (H) 191 (H) BUN 7 - 21 mg/dL 19 16 27 (H) 20 Creatinine 0.58 - 0.96 mg/dL 0.83 0.76 1.02 (H) 0.74 Sodium 136 - 144 mmol/L 139 138 138 137 Potassium 3.7 - 5.1 mmol/L 5.0 4.1 4.6 4.2 Chloride 97 - 105 mmol/L 102 102 98 98 CO2 22 - 30 mmol/L 22 23 23 26 Anion Gap 9 - 18 mmol/L 15 13 17 13 eGFR >=60 mL/min/1.73m 74 82 57 (L) 84 Total Cholesterol, Nonfasting <200 mg/dL 240 (H) 262 (H) Triglycerides, Nonfasting <150 mg/dL 266 (H) 344 (H) HDL Cholesterol, Nonfasting >39 mg/dL 39 (L) 38 (L) LDL Cholesterol, Nonfasting <100 mg/dL 148 (H) 155 (H) Non HDL Cholesterol, Nonfasting <130 mg/dL 201 (H) 224 (H) VLDL Cholesterol, Nonfasting <30 mg/dL 53 (H) 69 (H) Total Chol/HDL Ratio, Nonfasting <5.10 mg/dL 6.15 (H) 6.89 (H) LDL/HDL Ratio, Nonfasting <2.54 mg/dL 3.79 (H) 4.08 (H) Creatinine, Ur Random (UCRR) 20.0 - 300.0 mg/dL 136.9 Albumin, Urine Random mg/L <12.0 Albumin/Creat Ratio <30 mg/g <9 Hemoglobin A1C 4.3 - 5.6 % 6.5 (H) 6.3 (H) Estimated Average Glucose mg/dL 140 134 Vitamin D 25 Hydroxy 31.0 - 80.0 ng/mL 42.7 28.2 (L) Hemoglobin A1C (%) Date Value 03/28/2022 6.3 01/08/2021 6.8 ASSESSMENT/PLAN: 1. Primary hypertension - ICD9: 401.9, ICD10: I10 (primary diagnosis) Currently well controlled We reviewed that lisinopril unlikely to have contributed to kidney stone. Literature review does not support at this, see below. She was taking lisinopril at the time she saw the urologist and he did not stop the medication. She would like to change medication regardless. We will switch from lisinopril to losartan per her preference. She has an appointment next month with Ruddy Cooper MD, can recheck blood pressure at her next visit 2. Encounter for immunization - ICD9: V03.89, ICD10: Z23 - TDAP VACCINE, AGE 7+ YR (ADACEL, BOOSTRIX)-deferred 3. Need for shingles vaccine - ICD9: V04.89, ICD10: Z23 - SHINGRIX PRINTED PHARMACY INSTRUCTIONS -deferred 4. History of extraction of renal calculus - ICD9: V45.89, V13.01, ICD10: Z98.890, Z87.442 5. History of hydronephrosis - ICD9: V13.09, ICD10: Z87.448 08/2021, no recurrence Declined 24 hour urine test. Endorse adequate fluid intake. Reviewed UptoDate and PubMed. Medications listed as possibly contributing to kidney stones did not include lisinopril. Abstracted on pub med retrospective review did not support this either. Excerpted below: Hypertens Res. 2017 Dec;40(9):837-842. doi: 10.1038/hr.2017.42. Epub 2016Jul 18. Abstract Antihypertensives are widely prescribed and could influence kidney stone risk by altering urinary calcium excretion. However, the impact of different classes of antihypertensives on kidney stone riskis unknown. To assess this impact, we conducted a retrospective, population-based cohort study using linked health administrative databases. Individuals aged >65 years who initiated one of the four antihypertensive classes (that is, angiotensin-converting enzyme inhibitors (ACEis)/angiotensin receptor blockers (ARBs), beta-blockers, calcium channel blockers or thiazide diuretics) were included. The participants were followed for the occurrence of a kidney stone event while maintaining continuous usage on their drug class. The association between antihypertensive class and outcome was estimated by Marshall regression. Of the [id number] people included, we observed 4533 kidney stone events (0.83%)over a median follow-up of 368 days (365-729). Compared with beta-blockers, thiazides were associated with a lower risk of kidney stones (hazard ratio (HR) 0.76; 95% confidence interval (CI) 0.68-0.84), ACEis/ARBs with a borderline decreased risk (HR 0.90; 95% CI 0.83-0.98) and calcium channel blockers with a comparable risk (HR 1.02; 95% CI 0.92-1.13). When the risk of requiring an intervention for a kidney stone was examined, the results were consistent with the primary analysis; however, theprotective effect of ACEis/ARBs was eliminated (HR 0.96; 95% CI 0.87-1.06). In conclusion, relativeto beta-blockers, thiazide diuretics were associated with a decreased risk of kidney stone formation in adults aged >65 years, whereas ACEis/ARBs and calcium channel blockers had a comparable riskof presenting with a kidney stone. Follow up Ruddy Cooper MD with labs prior Bradford Love APRN.DEFLECTOR OPERATOR Medical Decision Making: Problems: Low: Stable chronic illness Risk: Moderate: Drug management Medical Decision Making Level: 3 - Low documented in this encounterWilson [facility] Hospital06-22-2023 Miscellaneous Notes* Telephone Encounter - Paty Jason RN - 10/17/2022 1:45 PM EDT Patient called re: status of request. She is also complaining of flank pain. Advised appointment. Scheduled with Bradford. Paty Jason RN * Telephone Encounter - Kiana Mcpherson LPN - 10/08/2022 3:42 PM EDT Checked Meditech and did not find a urine calcium spot or 24 hour. * Telephone Encounter - Ruddy Cooper MD - 10/08/2022 1:25 PM EDT [facility] Check Meditech to see if a urine calcium (spot or 24 hour) was done. * Telephone Encounter - Poornima Zavala RN - 10/07/2022 11:45 AM EDT Patient calls to check on status of request for change in blood pressure medication d/t lisinopril possibly causing kidney stones per a friend. Offered to schedule appointment with another provider to discuss. Patient declines. Poornima Zavala, RN * Telephone Encounter - Paola Main LPN - 09/30/2022 2:57 PM EDT Patient stopped into the office asking to change her Lisinopril 10 mg to a different blood pressuremedications. Patient states that she has had a couple kidney stones that she never had before and afriend told her that her kidney stones were coming from her blood pressure medication. Attempted togive patient benefits and risks but she just wants lisinopril changed to another bp medication. Please advise. [facility] documented in this encounterWilson [facility] Hospital06-16-2023 Miscellaneous Notes* Telephone Encounter - Maryam Gonzalez LPN - 10/11/2022 1:58 PM EDT Pt notified. Maryam Gonzalez LPN * Telephone Encounter - Raphael Perdomo APRN.CNP - 10/11/2022 12:56 PM EDT The following approved medication requests have been transmitted electronically. Requested Prescriptions Signed Prescriptions Disp Refills letrozole (FEMARA) 2.5 mg tablet 90 tablet 3 Sig: Take 1 tablet by mouth once daily. Authorizing Provider: RAPHAEL PERDOMO APRN.CNP * Telephone Encounter - Liliane Sierra - 10/11/2022 11:35 AM EDT Patient calling on status of medication * Telephone Encounter - Sarah Samuel LPN - 10/10/2022 1:40 PM EDT Pt. Said she would be willing to try a new med. And wants sent to [facility] pharmacy. Sarah Samuel LPN * Telephone Encounter - Raphael Perdomo APRN.CNP - 10/10/2022 12:33 PM EDT Would she be willing to try a different medication? Raphael Perdomo APRN.DESIRAE * Telephone Encounter - Cheryl Winchester RN - 10/10/2022 8:56 AM EDT Pt called and reported that she missed her dose of Anastrozole on Friday and be that evening noted less fatigue and shortness of breath with minimal exertion. These symptoms have bothered her for a couple years. Pt reports that she decided to keep holding medication to see if symptoms continue to improve. Pt reports that she is feeling completely normal now and does not want to resume this medication. documented in this encounterWilson Memorial Hospital05-10-2023 Miscellaneous Notes* Telephone Encounter - Nicole Nieves MA - 09/04/2022 2:41 PM EDT Last RX was lost when attempting to discard other old medication. Patient is out and requesting refill today. Nicole Nieves MA * Telephone Encounter - Denisse Murray - 09/04/2022 2:36 PM EDT Patient has been identified by name and date of : Yes, Provider Allison Date 09/04/22 Time 2:37 Patient phones for refill(s): Requested Prescriptions No prescriptions requested or ordered in this encounter Date of last office visit in primary care: 06/27/22 Last 2 Encounter Wt Readings: Date: Wt: 06/27/2022 66.2 kg (146 lb) 05/24/2022 65.3 kg (144 lb) Previous labs/tests for medication: Not applicable Please advise. Thank you. Denisse Murray documented in this encounterWilson Memorial Hospital05-03-2023 Miscellaneous Notes* Telephone Encounter - Jhoana Tian LPN - 08/28/2022 11:54 AM EDT Patient is going to call [facility], she has refils on Lisinopril & Anastrozole. Will callif any problems filling. Jhoana Tian LPN * Telephone Encounter - Denisse Murray - 08/28/2022 11:10 AM EDT Patient came in and stated that she was unable to find two of her medications (Lisinopril and Arimidex). She thinks that her son may have inadvertently included them in the bag of old medication he was helping her to put together and dispose of. She has only 2-3 pills left of each medication and would like a refill of each called in to her pharmacy today, if possible. Patient has been identified by name and date of : Yes, Provider Allison Date 08/28/22 Time 11:19 am Patient phones for refill(s): Requested Prescriptions No prescriptions requested or ordered in this encounter Date of last office visit in primary care: 06/27/22 Last 2 Encounter Wt Readings: Date: Wt: 06/27/2022 66.2 kg (146 lb) 05/24/2022 65.3 kg (144 lb) Previous labs/tests for medication: Not applicable Please advise. Thank you. Denisse Murray documented in this encounterWilson Memorial Hospital04-11-2023 Miscellaneous Notes* Telephone Encounter - Angélica Parkinson RN - 08/06/2022 11:54 AM EDT Last Office Visit: 06/27/2022 Future Office Visit: 11/22/2022 Requested Prescriptions Pending Prescriptions Disp Refills lisinopril (ZESTRIL) 10 mg tablet 90 tablet 3 Sig: Take 1 tablet by mouth once daily. Date of Last Labs: 03/28/2022 documented in this encounterWilson Memorial Hospital03-29-2023 Miscellaneous Notes* Letter - Mammography Coordinator - 07/24/2022 11:39 AM EDT July 25, 2022 PID: [id number] Judi Krause [id number] [facility] [address] [place] [address] Dear Ms. Krause, We are pleased to inform you that the results of your recent breast imaging exam on 07/24/2022 are normal. However, because you and/or your physician described a possible abnormality you should consult your physician or other health care provider for further evaluation if necessary. Early detection of cancer is very important. We also understand recommendations regarding breast cancer screening are controversial. Please discuss with your primary care provider which strategy is best for you and whether a mammogram is right for you. Your imaging studies and report will be kept on file at [facility] as part of your permanent medical record and are available for your continuing care. Thank you for allowing us to help in meeting your health care needs. Sincerely, Dr. Godinez Interpreting Radiologist [facility] (Normal-Clinical Evaluation) documented in this encounterWilson Memorial Hospital03-29-2023 History of Present illness Narrative* Paola Peng RT(R) - 07/24/2022 11:30 AM EDT Radiology Service Progress Note PATIENT NAME: Judi Krause DATE OF SERVICE: July 24, 2022 TIME: 11:14 AM PATIENT IDENTITY VERIFICATION COMPLETED USING TWO (2) IDENTIFIERS: Name and Date of confirmedby patient verbally. FALL SCREENING: Has the patient had 2 falls in the last year or 1 fall with injury or currently using an Ambulatory Assistive Device (Walker, Cane, Wheelchair, Crutches, etc.)? No PATIENT GENDER DATA: Female. status: : No status: NO. PATIENT RELEVANT IMPLANT DATA REVIEWED: Not Applicable RADIOLOGY DEPARTMENT: Mammography PERIPHERAL IV DATA: Not applicable SIGNED BY: RT Delta(R) July 24, 2022 11:14 AM documented in this encounterWilson Memorial Hospital03-02-2023 History of Present illness Narrative* Bradford Love APRN.DEFLECTOR OPERATOR - 06/27/2022 11:39 AM EST SUBJECTIVE: DILATED RETINAL EXAM Never done DIABETIC FOOT EXAM Never done DTAP,TDAP,TD(1 - Tdap) Never done SHINGRIX VACCINE(1 of 2) Never done ADVANCE DIRECTIVE DISCUSSION due on 04/28/2022 HPI Judi Krause is a 77 year old female. PMH significant for ACTIVE PROBLEM LIST Cerebral Aneurysm, Nonruptured Reactive Depression Generalized Anxiety Disorder Osteoporosis, Unspecified Diffuse Cystic Mastopathy Ocular migraine Mixed Hyperlipidemia Vitamin D Deficiency Abnormal Pap Smear of Vagina Edema of Both Legs Venous Insufficiency (Chronic) (Peripheral) Gerd (Gastroesophageal Reflux Disease) Dupuytren's Contracture Infiltrating Ductal Carcinoma of Left Breast (Hcc) Primary Osteoarthritis of Right Knee Status Post Right Knee Replacement Type 2 Diabetes Mellitus With Diabetic Neuropathy, Without Long-Term Current Use of Insulin (Hcc) History of Cva (Cerebrovascular Accident) Dyspepsia Closed Fracture of Ankle Disorder of Tendon of Posterior Tibial Muscle Hammer Toe Insomnia Normochromic Normocytic Anemia Orthostatic Hypotension Posterior Tibial Tendinitis of Right Lower Extremity Primary Generalized Hypertrophic Osteoarthrosis Retention of Urine Walking Difficulty Due to Ankle and Foot Hypertension Physical Debility Presents today for a routine follow-up visit. HPI excerpted from previous visits: She was admitted to [facility] neurosurgery service for recurrent left SCA aneurysm, subarachnoid hemorrhage January 22 through February 02, 2021. She was admitted to [facility] February 02 through February 27, 2021. Past medical history significant for multiple recurring and cerebral aneurysms with previous coiling, anxiety depression type 2 diabetes narrow angle glaucoma infiltrating ductal left breast cancer status post lumpectomy and now on Arimidex hypertension osteoarthritis obesity and GERD who was scheduled for an elective cerebral angiogram with web embolization of a known left SCA aneurysm. Procedure was complicatedby extravasation of contrast during the procedure. She was admitted to the neuro ICU for SAH/IVH post embolization. She developed hydrocephalus and had an external ventricular drain placed. The drain was removed on January 30, 2021. While in the hospital she developed UTI related to Jose placement,this was treated with Bactrim. She also had hyponatremia and was started on sodium chloride tablets3 g 3 times daily. She had delirium and was placed on Seroquel at at bedtime. Seen by PT OT and ST and transfer to acute rehab unit was recommended. She arrived at the inpatient acute rehab unit at [facility] on February 02, 2021. On arrival she was somnolent not motivated for therapy as well as confused. Had little recall of what it happened to her. She had a Jose catheter maintained for urine retention and was noted to be constipated. It was determined that her high dose of Pamelor may have been contributing to this and this was tapered by 25 mg weekly. Please see extensive discharge summary from acute rehab. She was noted to be significantly improved and discharged to home with scheduled appointments with Monae Dennis endovascular neurology and Raphael Perdomo hematology oncology.She was also advised to follow-up with Dr. Cooper following discharge from [facility]. Seen in [facility] emergency department yesterday for abdominal discomfort and tachycardia, worsening breathing issues. CT completed of chest and abdomen negative for PE no acute process in abdomen CBC and CMPwere in acceptable range. Urinalysis negative. COVID-19 testing negative. She was discharged home with reassurance and advised close follow-up. Presents today with her son and significant other. [facility]. She does have home health care coming out. This is going well. Notes that she would like to stop taking some of her current medications. Some of these were started during the hospital and feelsthese are no longer needed. Without complaint regarding abdominal pain. Notes sleeping about 6 hours a night, falling asleep around 8:00 p.m. and waking early though. Eating and drinking normally. No report of urinary retentionconstipation or other GI complaints today. No noted confusion or delirium symptoms currently. Feelsshe is improving but not yet back to baseline. Today reports she is in her usual state of health. Weight is stable. No neurological complaints. Surgery: Bilateral breast reconstruction. Diagnosis: Bilateral breast cancer diagnosed 2019. 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 Status post partial mastectomy and [place] to left breast irradiation. 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 Surgeon: Dr. Erik Courtney Location: [facility] orthopedic [facility] Anesthesia: General Pre-op visit or labs: Outpatient. No lab work, states no anesthesia visit. CP: no SOB: no Functional capacity: stable, able to take 2 [address] of [address] and walk a flat surface without chest pain or shortness of breath on exertion. 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 Has been seen by Dr. Jones neurosurgery regarding known residual aneurysm. MRA was completed 2021. He recommended an MRA in 1 year. Patient's last HgA1C was Hemoglobin A1C (%) Date Value 03/28/2022 6.3 10/17/2021 6.5 01/08/2021 6.8 08/01/2020 6.8 ) Depression: none She reports resuming nortriptyline now with tingling in her hands, would like to resume. Review of Systems Constitutional: Negative. Objective BP 110/70 Pulse 97 Resp 16 Wt 66.2 kg (146 lb) SpO2 97% BMI 25.66 kg/m Physical Exam Vitals and nursing note reviewed. Constitutional: Appearance: Normal appearance. HENT: Head: Normocephalic and atraumatic. Eyes: Conjunctiva/sclera: Conjunctivae normal. Neck: Thyroid: No thyroid mass or thyromegaly. Cardiovascular: Rate and Rhythm: Normal rate and regular rhythm. Pulses: Carotid pulses are 2+ on the right side and 2+ on the left side. Radial pulses are 2+ on the right side and 2+ on the left side. Heart sounds: Normal heart sounds. Pulmonary: Effort: Pulmonary effort is normal. Breath sounds: Normal breath sounds. Abdominal: General: Bowel sounds are normal. Palpations: Abdomen is soft. Musculoskeletal: Right lower leg: No edema. Left lower leg: No edema. Skin: General: Skin is warm and dry. Neurological: Mental Status: She is alert. Mental status is at baseline. ALLERGIES Allergen Reactions Codeine GI Upset Morphine GI Upset Prozac [Fluoxetine] Intolerance nervousness Medications nortriptyline (PAMELOR) 50 mg capsule Take 1 capsule by mouth daily at bedtime. anastrozole (ARIMIDEX) 1 mg tablet Take 1 tablet by mouth once daily. lisinopril (ZESTRIL, PRINIVIL) 10 mg tablet Take 1 tablet by mouth once daily. vitamin A (AQUASOL A) 10,000 unit capsule Take 10,000 Units by mouth once daily. Cholecalciferol, Vitamin D3, 125 mcg (5,000 unit) cap Take 5,000 Units by mouth once daily. flaxseed-omega3,6,9-fatty acid 1,300-670-155 mg cap Take 1 capsule by mouth twice daily. aspirin, enteric coated (ASPIRIN, ENTERIC COATED) 81 mg EC tablet Take 81 mg by mouth once daily. cyanocobalamin (VITAMIN B-12) 100 mcg tab Take 100 mcg by mouth once daily. vitamin b complex capsule Take 1 capsule by mouth once daily. [id number]-[id number]-toq-[id number]-vnkc-st (GLUCOSAMINE CHONDROITIN PLUS) 376-294-40-54 mg cap Take 1 capsule by mouth once daily. TURMERIC ORAL Take 1 tablet by mouth once daily. folic acid 400 mcg tablet Take 400 mcg by mouth once daily. ascorbic acid, vitamin C, (VITAMIN C) 500 mg tablet Take 500 mg by mouth once daily. iv contrast (will be provided with radiology test) MRA Brain Inject, intravenously, once for 1 dose. No IV access, insert saline lock prior to the beginning of sedation, infusion, injection of imaging exam. Discontinue saline lock post exam. If Pt. has a central line or IVAD, may access for administration according to line specific nursing protocol. Once exam is complete flush line and de-access according to line specific nursing protocol in the MR contrast administration guidelines link. zolpidem (AMBIEN) 10 mg Take 0.5-1 tablets by mouth at bedtime as needed (insomnia) for up to 14 days. 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, unspecified Dysfunction of eustachian tube Essential hypertension, benign Generalized anxiety disorder Anxiety, Generalized Internal hemorrhoids without mention of complication Lumbago Nonspecific abnormal finding in stool contents Ocular migraine Osteoporosis, unspecified Type 2 diabetes mellitus without complication, without long-term current use of insulin (HCC) Unspecified constipation Unspecified essential hypertension Varicose veins of other sites Social History Tobacco Use Smoking status: Never Smokeless tobacco: Never Vaping Use Vaping Use: Never used Substance Use Topics Alcohol use: No Drug use: Never The ASCVD Risk score (Natividad CHAVIRA, et al., 2019) failed to calculate for the following reasons: The patient has a prior ME or stroke diagnosis Component Latest Ref Rng & Units 10/17/2021 10/23/2021 03/28/2022 03/29/2022 04/18/2022 WBC 3.70 - 11.00 k/uL 7.03 9.72 RBC 3.90 - 5.20 m/uL 4.70 4.89 Hemoglobin 11.5 - 15.5 g/dL 14.2 14.7 Hematocrit 36.0 - 46.0 % 43.9 46.0 MCV 80.0 - 100.0 fL 93.4 94.1 MCH 26.0 - 34.0 pg 30.2 30.1 MCHC 30.5 - 36.0 g/dL 32.3 32.0 RDW-CV 11.5 - 15.0 % 12.8 12.7 Platelet Count 150 - 400 k/uL 313 405 (H) MPV 9.0 - 12.7 fL 8.7 (L) 8.8 (L) Neut% % 69.8 Abs Neut (ANC) 1.45 - 7.50 k/uL 6.78 Lymph% % 18.2 Abs Lymph 1.00 - 4.00 k/uL 1.77 Thayer% % 8.8 Abs Thayer <0.87 k/uL 0.86 Eosin% % 2.0 Abs Eosin <0.46 k/uL 0.19 Baso% % 0.6 Abs Baso <0.11 k/uL 0.06 Immature Gran % % 0.6 IMMATURE GRANS (ABS) <0.10 k/uL 0.06 NRBC /100 WBC 0.0 Absolute nRBC <0.01 k/uL <0.01 <0.01 DTYPE Auto Protein, Total 6.3 - 8.0 g/dL 7.1 7.7 Albumin 3.9 - 4.9 g/dL 4.2 4.3 Calcium 8.5 - 10.2 mg/dL 10.3 (H) 9.2 10.4 (H) 10.0 Bilirubin, Total 0.2 - 1.3 mg/dL 0.4 0.3 Alkaline Phosphatase 34 - 123 U/L 51 52 AST 13 - 35 U/L 28 32 ALT 7 - 38 U/L 20 20 Glucose 74 - 99 mg/dL 151 (H) 179 (H) 106 (H) 191 (H) BUN 7 - 21 mg/dL 19 16 27 (H) 20 Creatinine 0.58 - 0.96 mg/dL 0.83 0.76 1.02 (H) 0.74 Sodium 136 - 144 mmol/L 139 138 138 137 Potassium 3.7 - 5.1 mmol/L 5.0 4.1 4.6 4.2 Chloride 97 - 105 mmol/L 102 102 98 98 CO2 22 - 30 mmol/L 22 23 23 26 Anion Gap 9 - 18 mmol/L 15 13 17 13 eGFR >=60 mL/min/1.73m 74 82 57 (L) 84 Total Cholesterol, Nonfasting <200 mg/dL 240 (H) 262 (H) Triglycerides, Nonfasting <150 mg/dL 266 (H) 344 (H) HDL Cholesterol, Nonfasting >39 mg/dL 39 (L) 38 (L) LDL Cholesterol, Nonfasting <100 mg/dL 148 (H) 155 (H) Non HDL Cholesterol, Nonfasting <130 mg/dL 201 (H) 224 (H) VLDL Cholesterol, Nonfasting <30 mg/dL 53 (H) 69 (H) Total Chol/HDL Ratio, Nonfasting <5.10 mg/dL 6.15 (H) 6.89 (H) LDL/HDL Ratio, Nonfasting <2.54 mg/dL 3.79 (H) 4.08 (H) Creatinine, Ur Random (UCRR) 20.0 - 300.0 mg/dL 136.9 Albumin, Urine Random mg/L <12.0 Albumin/Creat Ratio <30 mg/g <9 Hemoglobin A1C 4.3 - 5.6 % 6.5 (H) 6.3 (H) Estimated Average Glucose mg/dL 140 134 Vitamin D 25 Hydroxy 31.0 - 80.0 ng/mL 42.7 28.2 (L) ASSESSMENT/PLAN: 1. Type 2 diabetes mellitus with diabetic neuropathy, without long-term current use of insulin (HCC) - ICD9: 250.60, 357.2, ICD10: E11.40 (primary diagnosis) Stable, currently controlled, continue to monitor. 2. Vitamin D deficiency - ICD9: 268.9, ICD10: E55.9 Continue taking supplemental vitamin D 3. Insomnia, unspecified type - ICD9: 780.52, ICD10: G47.00 - ZOLPIDEM 10 MG TABLET I67.1 Stable, followed by neurosurgeon. Continue current treatments unchanged. 6 mo follow up Ruddy Cooper MD with labs prior Bradford Love APRN.CNS Medical Decision Making: Problems: Moderate: 2+ stable chronic illnesses Data: Unique test(s) ordered: 3+ Risk: Moderate: Drug management Medical Decision Making Level: 4 - Moderate documented in this encounterWilson Memorial Hospital01-27-2023 History of Present illness Narrative* Raphael Perdomo APRN.MANUAL LATHE OPERATOR - 05/24/2022 12:54 PM EST Chief Complaint Patient presents with: Established Patient HPI: Judi Krause is a 77 year old female who presents here today for follow up breast cancer. Per Dr. Osman's previous note: H/o was seen seen by Dr. Campbell after presenting with LEFT nipple retraction and abnormal calcifications in the RIGHT breast seen on mammograms performed 11/23/19. 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 The cancer cells were strongly ER+ in 99% of cells, strongly NM+ in 99% of cells, and HER2-negative (0 by IHC). Stereotactic biopsy of the right breast with clip placement performed 12/29/19 showed rare atypical intraductal epithelial cells. She was taking estrogen as Estrace. (Stopped November 2019). On 01/28/20 Ms. Krause underwent excision of the right breast lesion as well as left breast central resection and left axillary sentinel node biopsy. Pathology from this procedure showed: Right breast: DCIS with a positive medial margin. Left breast: One (1) of 2 sentinel nodes was involved, with 4 mm of extranodal extension noted. In the left breast resection was a 25 mm Grade 2 invasive ductal carcinoma with lymphovascular invasionpresent. DCIS was present as well. The final medial margin was involved. S/p 1. RIGHT breast re-excision of margins 2. LEFT breast re-excision of margins on 02/11/[address] Aaron Schaeffer Path: FINAL DIAGNOSIS 1. Left breast additional medial margin, resection (A) - Ductal carcinoma in situ, cribriform type, intermediate grade. - The ductal carcinoma in situ is close (0.1 mm) to multiple inked new margins. 2. Right breast additional deep margin, resection (B) - Extensive healing biopsy site changes. No malignancy is identified. 3. Right breast additional medial margin, resection (C) - - Ductal carcinoma in situ solid type, low grade. - The ductal carcinoma in situ is present 1 mm from the new inked margin. - Small intraductal papilloma with associated microcalcifications. - Healing biopsy site changes. Comment: Immunohistochemical stain for ecadherin is performed on part C and is positive in the DCIS confirming ductal origin. Oncotype Dx assay returned a Recurrence Score of 9, in the low risk range. I do not recommend adjuvant chemotherapy. She will return in 6 weeks or so, after completion of radiation therapy, for re-evaluation and to start anastrozole. RADIATION:03/29/20 to 04/27/20 (Done in [place]/Dr. Storm) Bilateral breasts/left SC and axilla. Current therapy:Arimidex Began 2020 No new concerns today. Appetite:Good. Energy level:Maybe a 5 or 6. Denies fevers or recent illness. Resp:denies cough or sob Cardiac:denies chest pain/palpitations GI:denies abd pain, n/v, moving bowel regularly :denies dysuria/hematuria Extrem:b/l hand pain prior to AI, occ. 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 Past medical history, appointments, medications, allergies reviewed. No changes. EXAM: BP 104/71 Pulse 106 Temp 36.1 C (97 F) (Temporal) Ht 160.7 cm (5' 3.25) Wt 65.3 kg (144 lb) BMI 25.31 kg/m APPEARANCE Well appearing, alert, in no acute distress, well-hydrated, well nourished. HEART RRR with normal S1 and S2, no murmurs LUNG clear to auscultation BREAST FEMALE no mass/nodule b/l, L nipple/AC surgically absent/radiation changes, R lower surgicaldefect LYMPH NODES No cervical lymphadenopathy, No supraclavicular lymphadenopathy, and No axillary lymphadenopathy. ABDOMEN bowel sounds normoactive, soft, non-tender EXTREMITIES No edema NEURO Awake, alert and oriented x 3, Normal gait, and No involuntary motions. SKIN Skin color, texture, turgor normal, no suspicious rashes or lesions ASSESSMENT/PLAN: 1. Invasive ductal carcinoma of breast, left (HCC) - ICD9: 174.9, ICD10: C50.912 (primary diagnosis) 2. Ductal carcinoma in situ (DCIS) of right breast - ICD9: 233.0, ICD10: D05.11 Stage IB, T2N1, grade 2 invasive carcinoma with mixed ductal and lobular features of the left breast s/p lumpectomy and sentinel node biopsy and then re- excision. It's ER positive (99%, strong), NM positive (99%, strong) and Her2/maria a 0. 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 - No concerning findings on exam. - Tolerating arimidex well. - Continue arimidex. - Mammogram due in November. - Imaging per surgeon at main. Follow up as scheduled in November. - Zometa every 6 months x 6 doses total. As scheduled in September (#4). - Follow up in 6 months. - Pt. aware to call office with any questions/concerns. The patient indicates understanding of these issues and agrees with the plan. All documentation from previous visit of 11/21/21-Dr. Osman/myself was copied and pasted, documentation has been reviewed and edited as necessary for today's visit. Raphael Perdomo APRN.DESIRAE documented in this encounterWilson Memorial Hospital12-29-2022 Miscellaneous Notes* Telephone Encounter - Birgit Gonzalez LPN - 04/25/2022 9:49 AM EST Spoke with pt and information listed below given. Pt verbalizes understanding. Birgit Gonzalez LPN * Telephone Encounter - Ruddy Cooper MD - 04/24/2022 6:20 PM EST The following approved medication requests have been transmitted electronically. Requested Prescriptions Signed Prescriptions Disp Refills nortriptyline (PAMELOR) 50 mg capsule 90 capsule 3 Sig: Take 1 capsule by mouth daily at bedtime. Authorizing Provider: RUDDY COOPER MD Okay 90 day suppply * Telephone Encounter - Genia Ackerman RN - 04/24/2022 1:10 PM EST Patient reports provider wrote the pended Rx for 30 day supply. Asking provider to please write it for a 90 day supply so she doesn't have to go to the pharmacy every month. Reports all of her Rx's are written for a 90 day supply. Please let patient know. documented in this encounterWilson Memorial Hospital12-05-2022 Miscellaneous Notes* Telephone Encounter - Lnoi Ding Pss - 04/01/2022 11:07 AM EST Spoke with patient and rescheduled date per her request. * Telephone Encounter - Raphael Perdomo APRN.CNP - 04/01/2022 9:51 AM EST Please move it out once she has recovered. Thank you. Raphael Perdomo APRN.MANUAL LATHE OPERATOR * Telephone Encounter - Loni Ding Pss - 04/01/2022 8:45 AM EST Scheduled for zometa on 04/10. Please advise. * Telephone Encounter - Christa Elizabeth Pss - 03/29/2022 3:17 PM EST Patient is having surgery on her breast 04/08 and she does not think she would be able to make it this soon after surgery she is requesting the week before or the week after. Please advise the patient. documented in this encounterWilson Memorial Hospital12-01-2022 Instructions* Patient Instructions* Bradford Love APRN.DEFLECTOR OPERATOR - 03/28/2022 2:36 PM EST Check preop lab work today. Follow your surgeons instructions regarding surgery. Increase nortriptyline from 25 mg to 50 mg daily Take two 25 mg daily at bedtime until gone Then take one 50 mg tablet at bedtime documented in this encounterWilson Memorial Hospital12-01-2022 History of Present illness Narrative* Bradford Love APRN.CNS - 03/28/2022 2:00 PM EST SUBJECTIVE: DILATED RETINAL EXAM Never done DIABETIC FOOT EXAM Never done BP CONTROLLED (<130/80) Never done DTAP,TDAP,TD(1 - Tdap) Never done SHINGRIX VACCINE(1 of 2) Never done PNEUMOCOCCAL: 65+(2 - PCV) due on 05/04/2015 ADVANCE DIRECTIVE DISCUSSION Never done INFLUENZA(1) due on 12/27/2021 COVID-19 VACCINE(4 - Booster for Pfizer series) due on 01/10/2022 URINE ALBUMIN:CREATININE RATIO due on 01/25/2022 HPI Judi Krause is a 77 year old female. PMH significant for ACTIVE PROBLEM LIST Cerebral Aneurysm, Nonruptured Reactive Depression Generalized Anxiety Disorder Osteoporosis, Unspecified Diffuse Cystic Mastopathy Ocular migraine Mixed Hyperlipidemia Vitamin D Deficiency Abnormal Pap Smear of Vagina Edema of Both Legs Venous Insufficiency (Chronic) (Peripheral) Gerd (Gastroesophageal Reflux Disease) Dupuytren's Contracture Infiltrating Ductal Carcinoma of Left Breast (Hcc) Primary Osteoarthritis of Right Knee Status Post Right Knee Replacement Type 2 Diabetes Mellitus With Diabetic Neuropathy, Without Long-Term Current Use of Insulin ([facility]) History of Cva (Cerebrovascular Accident) Dyspepsia Closed Fracture of Ankle Disorder of Tendon of Posterior Tibial Muscle Hammer Toe Insomnia Normochromic Normocytic Anemia Orthostatic Hypotension Posterior Tibial Tendinitis of Right Lower Extremity Primary Generalized Hypertrophic Osteoarthrosis Retention of Urine Walking Difficulty Due to Ankle and Foot Hypertension Physical Debility Presents today for preoperative exam and internal medicine. HPI excerpted from previous visit: She was admitted to [facility] neurosurgery service for recurrent left SCA aneurysm, subarachnoid hemorrhage January 22 through February 02, 2021. She was admitted to [facility] February 02 through February 27, 2021. Past medical history significant for multiple recurring and cerebral aneurysms with previous coiling, anxiety depression type 2 diabetes narrow angle glaucoma infiltrating ductal left breast cancer status post lumpectomy and now on Arimidex hypertension osteoarthritis obesity and GERD who was scheduled for an elective cerebral angiogram with web embolization of a known left SCA aneurysm. Procedure was complicatedby extravasation of contrast during the procedure. She was admitted to the neuro ICU for SAH/IVH post embolization. She developed hydrocephalus and had an external ventricular drain placed. The drain was removed on January 30, 2021. While in the hospital she developed UTI related to Jose placement,this was treated with Bactrim. She also had hyponatremia and was started on sodium chloride tablets3 g 3 times daily. She had delirium and was placed on Seroquel at at bedtime. Seen by PT OT and ST and transfer to acute rehab unit was recommended. She arrived at the inpatient acute rehab unit at [facility] on February 02, 2021. On arrival she was somnolent not motivated for therapy as well as confused. Had little recall of what it happened to her. She had a Jose catheter maintained for urine retention and was noted to be constipated. It was determined that her high dose of Pamelor may have been contributing to this and this was tapered by 25 mg weekly. Please see extensive discharge summary from acute rehab. She was noted to be significantly improved and discharged to home with scheduled appointments with Monae Dennis endovascular neurology and Raphael Lansford hematology oncology.She was also advised to follow-up with Dr. Cooper following discharge from [facility]. Seen in [facility] emergency department yesterday for abdominal discomfort and tachycardia, worsening breathing issues. CT completed of chest and abdomen negative for PE no acute process in abdomen CBC and CMPwere in acceptable range. Urinalysis negative. COVID-19 testing negative. She was discharged home with reassurance and advised close follow-up. Presents today with her son and significant other. [facility] and [facility]. She does have home health care coming out. This is going well. Notes that she would like to stop taking some of her current medications. Some of these were started during the hospital and feelsthese are no longer needed. Without complaint regarding abdominal pain. Notes sleeping about 6 hours a night, falling asleep around 8:00 p.m. and waking early though. Eating and drinking normally. No report of urinary retentionconstipation or other GI complaints today. No noted confusion or delirium symptoms currently. Feelsshe is improving but not yet back to baseline. Today reports she is in her usual state of health. Weight is stable. No neurological complaints. Surgery: Bilateral breast reconstruction. Diagnosis: Bilateral breast cancer diagnosed 2019. 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 Status post partial mastectomy and [place] to left breast irradiation. 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 Surgeon: Dr. Erik Courtney Location: [facility] orthopedic [facility] Anesthesia: General Pre-op visit or labs: Outpatient. No lab work, states no anesthesia visit. CP: no SOB: no Functional capacity: stable, able to take 2 flight of stair and walk a flat surface without chest pain or shortness of breath on exertion. 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 Age Group: 75 - 84 years 2. Sex: female 3. Functional Status: Independent 4. Emergency Case: No 5. ASA Class: Mild systemic disease 6. Steroid use for chronic condition: No 7. Ascites within 30 days prior to surgery: No 8. Systemic Sepsis within 48 hours prior to surgery: None 9. Ventilator Dependent: No 10. Disseminated Cancer: No 11. Diabetes: diet controlled 12. Hypertension requiring medication: Yes 13. Congestive Heart Failure in 30 days prior to surgery: No 14. Dyspnea: No 15. Current Smoker within 1 Year: No 16. History of COPD: No 17. Dialysis: No 18. Acute Renal Failure: No 19. BMI Class Calculation: Normal Hemoglobin A1C (%) Date Value 10/17/2021 6.5 01/08/2021 6.8 Creatinine Date Value Ref Range Status 10/23/2021 0.76 0.58 - 0.96 mg/dL Final 10/17/2021 0.83 0.58 - 0.96 mg/dL Final 05/09/2021 0.71 0.58 - 0.96 mg/dL Final 03/14/2021 0.73 0.58 - 0.96 mg/dL Final She reports self discontinuation of nortriptyline now with tingling in her hands, would like to resume. Review of Systems Constitutional: Negative. Objective BP 104/68 Pulse 106 Resp 16 Wt 63.5 kg (140 lb) SpO2 100% BMI 24.41 kg/m Physical Exam Vitals and nursing note reviewed. Constitutional: Appearance: Normal appearance. HENT: Head: Normocephalic and atraumatic. Eyes: Conjunctiva/sclera: Conjunctivae normal. Neck: Thyroid: No thyroid mass or thyromegaly. Cardiovascular: Rate and Rhythm: Normal rate and regular rhythm. Pulses: Carotid pulses are 2+ on the right side and 2+ on the left side. Radial pulses are 2+ on the right side and 2+ on the left side. Heart sounds: Normal heart sounds. Pulmonary: Effort: Pulmonary effort is normal. Breath sounds: Normal breath sounds. Abdominal: General: Bowel sounds are normal. Palpations: Abdomen is soft. Musculoskeletal: Right lower leg: No edema. Left lower leg: No edema. Skin: General: Skin is warm and dry. Neurological: Mental Status: She is alert. Mental status is at baseline. ALLERGIES Allergen Reactions Codeine GI Upset Morphine GI Upset Prozac [Fluoxetine] Intolerance nervousness Medications anastrozole (ARIMIDEX) 1 mg tablet Take 1 tablet by mouth once daily. zolpidem (AMBIEN) 10 mg Take 0.5-1 tablets by mouth at bedtime as needed (insomnia) for up to 14 days. lisinopril (ZESTRIL, PRINIVIL) 10 mg tablet Take 1 tablet by mouth once daily. Vitamin E, dl, acetate, 1,000 unit capsule 1,000 Units. vitamin A (AQUASOL A) 10,000 unit capsule Take by mouth. Cholecalciferol, Vitamin D3, 125 mcg (5,000 unit) cap 5,000 Units. flaxseed-omega3,6,9-fatty acid 1,300-670-155 mg cap TWICE A DAY aspirin, enteric coated (ASPIRIN, ENTERIC COATED) 81 mg EC tablet Take by mouth. cyanocobalamin (VITAMIN B-12) 100 mcg tab Take 100 mcg by mouth once daily. vitamin b complex capsule Take 1 capsule by mouth once daily. vitamins A and D (VITAMINS A & D ORAL) Take by mouth. mjcy-ubgbo-[id number]-mau-cld-fald-st (GLUCOSAMINE CHONDROITIN PLUS) 867-281-38-54 mg cap Take 1 capsule by mouth once daily. TURMERIC ORAL Take by mouth. On hold folic acid 400 mcg tablet Take 400 mcg by mouth once daily. ascorbic acid, vitamin C, (VITAMIN C) 500 mg tablet Take 500 mg by mouth once daily. nortriptyline (PAMELOR) 25 mg capsule Take 1 capsule by mouth daily at bedtime. iv contrast (will be provided with radiology test) MRA Brain Inject, intravenously, once for 1 dose. No IV access, insert saline lock prior to the beginning of sedation, infusion, injection of imaging exam. Discontinue saline lock post exam. If Pt. has a central line or IVAD, may access for administration according to line specific nursing protocol. Once exam is complete flush line and de-access according to line specific nursing protocol in the MR contrast administration guidelines link. anastrozole (ARIMIDEX) 1 mg tablet Take 1 mg by mouth once daily. (Patient not taking: Reported on 03/28/2022) elderberry fruit (ELDERBERRY ORAL) Take by mouth. (Patient not taking: Reported on 03/28/2022) fluticasone (FLONASE) 50 mcg/actuation nasal spray Use 2 Sprays in each nostril once daily. For nasal drainage and congestion rinse mouth after use. 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, unspecified Dysfunction of eustachian tube Essential hypertension, benign Generalized anxiety disorder Anxiety, Generalized Internal hemorrhoids without mention of complication Lumbago Nonspecific abnormal finding in stool contents Ocular migraine Osteoporosis, unspecified Type 2 diabetes mellitus without complication, without long-term current use of insulin (HCC) Unspecified constipation Unspecified essential hypertension Varicose veins of other sites Social History Tobacco Use Smoking status: Never Smokeless tobacco: Never Vaping Use Vaping Use: Never used Substance Use Topics Alcohol use: No Drug use: Never ASSESSMENT/PLAN: 1. Preop exam for internal medicine - ICD9: V72.83, ICD10: Z01.818 (primary diagnosis) Independent in daily activities. No history of heart disease or stroke. No change in functional capacity, able to take 2 flight of stairs and walk flat surface without limitations of chest pain or shortness of breath. Risk of serious complication 4.4%, any complication 4.7%. To check CBC CMP today. No additional testing needed prior to surgery. - CBC + DIFF - COMP METABOLIC PANEL 2. Type 2 diabetes mellitus with diabetic neuropathy, without long-term current use of insulin (HCC) - ICD9: 250.60, 357.2, ICD10: E11.40 Controlled by diet only. Routine labs today - ALBUMIN/CREAT RATIO RND UR 3. Need for shingles vaccine - ICD9: V04.89, ICD10: Z23 Deferred 4. Encounter for immunization - ICD9: V03.89, ICD10: Z23 Deferred Advised: Check preop lab work today. Follow your surgeons instructions regarding surgery. Increase nortriptyline from 25 mg to 50 mg daily Take two 25 mg daily at bedtime until gone Then take one 50 mg tablet at bedtime 3 mo follow up Bradford Love APRN.DEFLECTOR OPERATOR 6 mo follow up MD Bradford Quiroz APRN.DEFLECTOR OPERATOR Medical Decision Making: Problems: Moderate: 2+ stable chronic illnesses Data: Unique test(s) ordered: 3+ Risk: Moderate: Drug management and Decision on elective major surgery w/o risk factors Medical Decision Making Level: 4 - Moderate documented in this encounterWilson Memorial Hospital10-24-2022 History of Present illness Narrative* Julianne Longoria RT(R) - 02/18/2022 11:20 AM EDT Radiology Service Progress Note DATE OF SERVICE: February 18, 2022 TIME: 12:21 PM PATIENT IDENTITY VERIFICATION COMPLETED USING TWO (2) STANDARD IDENTIFIERS: Name and Date of confirmed by patient verbally. FALL SCREENING: Has the patient had 2 falls in the last year or 1 fall with injury or currently using an Ambulatory Assistive Device (Walker, Cane, Wheelchair, Crutches, etc.)? No PATIENT GENDER DATA: Female. status: : No status: NO. PATIENT RELEVANT IMPLANT DATA REVIEWED: Yes ALLERGIES: Reviewed and unchanged CONTRAST ALLERGY: NO. EXAM: MRI - CONTRAST TYPE: GROUP II PERIPHERAL IV DATA: Ambulatory: A peripheral IV was started in the Right hand with a Angio cath: 24gauge. RADIOLOGY DEPARTMENT: MR; Exam(s) Completed: Head: [place] MRA SIGNATURE: RT Bridget(Huy) PATIENT NAME: Judi Krause DATE: February 18, 2022 TIME: 12:21 PM documented in this encounterWilson Memorial Hospital09-19-2022 Miscellaneous Notes* Telephone Encounter - Monae Muhammad RN - 01/14/2022 1:00 PM EDT [facility] informed me that they had not received everything. In fact, they have nothing. I have printed the last few years plus the imaging reports for the past 10 years. I am going to fax them to [facility]. [phone] * Telephone Encounter - Monae Muhammad RN - 01/14/2022 10:42 AM EDT Spoke with patient who has concerns about getting imaging and reports from us to [facility]. She is going there for a 2nd opinion. I called [facility], Dr. Courtney, to see if they had received everything. However, I had to leave a voicemail. I told them to follow up with me if they did not receive. documented in this encounterWilson [facility] Miscellaneous Notes* Telephone Encounter - Abiola Deleon - 01/07/2022 8:41 AM EDT Patient called and asked if she had radiation for breast cancer could she still have inplants put in? She would like a call back to further discuss. documented in this encounterWilson [facility] Hospital08-25-2022 History of Present illness Narrative* Julianne Saab, PT - 12/20/2021 8:00 AM EDT Episode Visit Count: 13 Therapist That Will Oversee The Plan Of Care: Julianne Saab Start of Care Date: 10/31/21 Onset Date: 09/26/21 Plan of Care Certification Date: 10/31/21 Next Certification Due Date: 01/09/22 Patient Identified by Name and Date of : Yes REHABILITATION AND SPORTS THERAPY PHYSICAL THERAPY DISCONTINUANCE OF CARE PLAN OF CARE UPDATE: Assessment: Judi Krause is discontinued from Physical Therapy services due to maximal benefit.. Patient was seen for 13 visits from Start of Care Date: 10/31/21 to 12/20/2021 and treatment included: Therapeutic exercise, Neuromuscular re-education, Self-fdc management, and Patient/Family/Car egiver Education. Goals for Episode of Care: created on 10/31/21 through 01/09/22 updated 12/19/21 Improve right LE alignment for gait pattern / partially achieved [place] in home exercise program.. achieved Patient will increase active ROM of right ankle by 3-5 degrees to allow pt to to improve gait mechanics / gait pattern / achieved . Patient will demonstrate increase in right LE strength of right foot and ankle to 4/5 throughout in order to improve function for prior functional tasks./ partially achieved Patient Goals: Pt wants to walk without foot turning out as much and not tripping as much./ partially achieved SUBJECTIVE: Patient Reason for Visit: Pt reports that overall she feels she is doing better but foot still turns out. Reports that she plans to continue to do the exs.. Pain: Pain Pain Level: 0 Post Treatment Pain Post Treatment Pain Level: No Change PROMIS Scales T-scores: mean of general population = 50. 5 points is clinically meaningfully difference Percentiles provide an indication of how the patient's score ranks in relation to the general population. Higher percentile rankings indicate better function/quality of life. 50th percentile is the average of the general population and indicates half of respondents had a worse score. T-scores: mean of general population = 50. 5 points is clinically meaningfully difference Percentiles provide an indication of how the patient's score ranks in relation to the general population. Higher percentile rankings indicate better function/quality of life. 50th percentile is the average of the general population and indicates half of respondents had a worse score. OBJECTIVE MEASURES WITH LEVEL OF FUNCTION: Ankle Observations R Foot Observations: decfreased sensation throughout lower leg/ foot ankle Sensation - Lower Extremity LE Light Touch Sensation: Impaired LE AROM R Ankle Dorsiflexion: -5 Degrees R Ankle Inversion: 12 R Ankle Eversion: 15 LE PROM R Ankle Dorsiflexion: 0 Degrees LE Flexibility R Gastrocnemius Flexibility: 0 LE Strength R Ankle Dorsiflexion (L4): 4-/5 R Ankle Plantar Flexion: 4/5 R Ankle Inversion: 2+/5 R Ankle Eversion: 4-/5 Gait General Deviations/Observations: (improved LE alignment with effort, foot to neutral with improved hip ER) TREATMENT: Therapeutic Exercise: 1: seated LAQ with efforts to maintain neutral foot position 2x12 (good form today!) 2: seated with proper knee flexion and hip at neutral, heel slides with knee flexion and extension 2x12 3: seated arch lift with some activiation of mm but difficult 2x15 4: ankle circles CW and CCW 3x10 5: active DF 2x15 6: AAROM for inversion 2x15 7: passive gastroc stretch gentle 30 sec x3 8: manual resisted DF and eversion while long sitting 2x15 9: orange rep band hip abduction right with neutral foot postiion 2x10 Skilled Intervention: Skilled judgment was provided in selection of appropriate interventions. Correct performance of therapeutic exercises was facilitated with verbal and visual cuing. Neuromuscular Re-Education: 1: gait in parallel bars with mirror to assist and cues for neutral foot and hip rotation position 2: heel slide right with emphasis on right hip abduction ER and foot inversion 2x10 iwth mild assist 2x15 3: focus on item 20 feet away with forward walking with emphasis on proper foot alignment during gait. mirror also used for feedback Skilled Intervention: Education in proprioceptive/kinesthetic awareness during dynamic activities. Billing Therapeutic Exercise Treatment Minutes: 25 Neuromuscular Re-Education Treatment Minutes: 15 Total Treatment Time Minutes (timed/untimed): 40 Julianne Saab PT documented in this encounterWilson Memorial Hospital08-22-2022 History of Present illness Narrative* Julianne Saab PT - 12/17/2021 2:19 PM EDT Episode Visit Count: 12 Therapist That Will Oversee The Plan Of Care: Julianne Saab Start of Care Date: 10/31/21 Onset Date: 09/26/21 Plan of Care Certification Date: 10/31/21 Next Certification Due Date: 01/09/22 Patient Identified by Name and Date of : Yes REHABILITATION AND SPORTS THERAPY PHYSICAL THERAPY TREATMENT NOTE ASSESSMENT: Judi Krause tolerated the session with no issues. She demonstrated improvements in AROM of right ankle for inversion and arch lift. . The patient will continue to benefit from ongoing skilled physical therapy to progress toward set goals. PLAN FOR NEXT VISIT: POC with discharge SUBJECTIVE: Patient Reason for Visit: Pt reports that she feels she is moving better than she did when she first came Pain: Pain Pain Level: 0 Post Treatment Pain Post Treatment Pain Level: 0 OBJECTIVE MEASURES WITH LEVEL OF FUNCTION: TREATMENT: Therapeutic Exercise: 1: seated LAQ with efforts to maintain neutral foot position 2x12 (good form today!) 2: seated with proper knee flexion and hip at neutral, heel slides with knee flexion and extension 2x12 3: seated arch lift with some activiation of mm but difficult 2x15 4: ankle circles CW and CCW 3x10 5: active DF 2x15 6: AAROM for inversion 2x15 7: passive gastroc stretch gentle 30 sec x3 8: manual resisted DF and eversion while long sitting 2x15 9: orange rep band hip abduction right with neutral foot postiion 2x10 Skilled Intervention: Skilled judgment was provided in selection of appropriate interventions. Correct performance of therapeutic exercises was facilitated with verbal and visual cuing. Neuromuscular Re-Education: 1: gait in parallel bars with mirror to assist and cues for neutral foot and hip rotation position 2: heel slide right with emphasis on right hip abduction ER and foot inversion 2x10 iwth mild assist 2x15 3: focus on item 20 feet away with forward walking with emphasis on proper foot alignment during gait. mirror also used for feedback Skilled Intervention: Education in proprioceptive/kinesthetic awareness during dynamic activities. Education and demonstration for posture and positioning for tone management. Billing Therapeutic Exercise Treatment Minutes: 25 Neuromuscular Re-Education Treatment Minutes: 15 Total Treatment Time Minutes (timed/untimed): 40 Julianne Saab PT documented in this encounterWilson Memorial Hospital08-19-2022 Miscellaneous Notes* Telephone Encounter - Melani Zuniga RN - 12/14/2021 10:42 AM EDT Returned call to patient. Verified with patient that protocol has changed and she is no longer indicated for angiogram but MRA instead. Will cancel angio. Will send request to schedulers as she wantsassistance. Also discussed surgery clearance. She is recommended to remain on baby asa around time of procedureif at all possible per Dr. Jones. Patient verifies understanding. Melani Zuniga RN * Telephone Encounter - Charleen Enoc - 12/13/2021 4:16 PM EDT CV PHONE Name of caller : Judi Relationship to patient : Self If not self Will need patient permission to release results or disclose health information with called documented in fyi. Patient identified by Name and Date of . ( Judi Krause, 1945). Yes Number to return call Reason for Call : Patient is calling regarding her Angiogram. She is inquiring about whether the pins in her foot once she has her surgery will be a issue for the test. Patient also is wondering if it is necessary for her to get Angio. Thank you calling [facility] [place]. You will receive a return call within 48hours ( or 2 business days if close to the weekend). If you feel that this is an urgent issue and needs immediate attention, it is recommended that you contact your primary care provider office or proceed to your nearest Urgent Care Center of Emergency Room ED for evaluation/treatment. documented in this encounterWilson Memorial Hospital08-18-2022 Miscellaneous Notes* Telephone Encounter - Melani Zuniga RN - 12/13/2021 1:52 PM EDT Faxed. Melani Zuniga RN * Telephone Encounter - Melani Zuniga RN - 12/05/2021 3:39 PM EDT Forwarded to Dr. Jones for signature. Melani Zuniga RN documented in this encounterWilson Memorial Hospital08-17-2022 History of Present illness Narrative* Julianne Saab, PT - 12/12/2021 2:40 PM EDT Episode Visit Count: 11 Therapist That Will Oversee The Plan Of Care: Julianne Saab Start of Care Date: 10/31/21 Onset Date: 09/26/21 Plan of Care Certification Date: 10/31/21 Next Certification Due Date: 01/09/22 Patient Identified by Name and Date of : Yes REHABILITATION AND SPORTS THERAPY PHYSICAL THERAPY TREATMENT NOTE ASSESSMENT: Judi Krause tolerated the session with no issues. She demonstrated improvements in AROM of right ankle overall . The patient will continue to benefit from ongoing skilled physical therapy to progress toward set goals. PLAN FOR NEXT VISIT: continue to provide manual stabilation for hip and knee during ankle exs SUBJECTIVE: Patient Reason for Visit: Pt notes that she still has trouble with right foot turning out but feels it is better than it was. Pain: Pain Pain Level: 0 OBJECTIVE MEASURES WITH LEVEL OF FUNCTION: Pt with increased IR/ adduction tone in right hip with ankle ROM exs. TREATMENT: Therapeutic Exercise: 1: seated LAQ with efforts to maintain neutral foot position 2x12 (good form today!) 2: seated with proper knee flexion and hip at neutral, heel slides with knee flexion and extension 2x12 3: seated arch lift with some activiation of mm but difficult 2x15 4: ankle circles CW and CCW 3x10 5: active DF 2x15 6: AAROM for inversion 2x15 7: passive gastroc stretch gentle 30 sec x3 8: manual resisted DF and eversion while long sitting 2x15 9: orange rep band hip abduction right with neutral foot postiion 2x10 Skilled Intervention: Skilled judgment was provided in selection of appropriate interventions. Correct performance of therapeutic exercises was facilitated with verbal and visual cuing. Neuromuscular Re-Education: 1: gait in parallel bars with mirror to assist and cues for neutral foot and hip rotation position 3: focus on item 20 feet away with forward walking with emphasis on proper foot alignment during gait. mirror also used for feedback Skilled Intervention: Skilled judgment used to assess appropriate program for balance and coordination activity. Education in proprioceptive/kinesthetic awareness during dynamic activities. Billing Therapeutic Exercise Treatment Minutes: 25 Neuromuscular Re-Education Treatment Minutes: 12 Total Treatment Time Minutes (timed/untimed): 37 Julianne Saab PT documented in this encounterWilson Memorial Hospital08-15-2022 History of Present illness Narrative* Julianne Saab PT - 12/10/2021 5:10 PM EDT Episode Visit Count: 10 Therapist That Will Oversee The Plan Of Care: Julianne Saab Start of Care Date: 10/31/21 Onset Date: 09/26/21 Plan of Care Certification Date: 10/31/21 Next Certification Due Date: 01/09/22 Patient Identified by Name and Date of : Yes REHABILITATION AND SPORTS THERAPY PHYSICAL THERAPY TREATMENT NOTE ASSESSMENT: Judi Krause tolerated the session with no issues. She demonstrated improvements in gait pattern with use of mirror. . The patient will continue to benefit from ongoing skilled physicaltherapy to progress toward set goals. PLAN FOR NEXT VISIT: continue per POC SUBJECTIVE: Patient Reason for Visit: Pt reports that she is getting ready for her upcoming left foot surgery. Has people now to help her afterwards. Feels that it is still difficult to control her foot and ankle on the right. No pain there d/t lack of sensation Pain: Pain Pain Level: 0 Post Treatment Pain Post Treatment Pain Level: No Change OBJECTIVE MEASURES WITH LEVEL OF FUNCTION: TREATMENT: Therapeutic Exercise: 1: seated LAQ with efforts to maintain neutral foot position 2x12 (good form today!) 2: seated with proper knee flexion and hip at neutral, heel slides with knee flexion and extension 2x12 3: seated arch lift with some activiation of mm but difficult 2x15 4: ankle circles CW and CCW 3x10 5: active DF 2x15 6: AAROM for inversion 2x15 7: passive gastroc stretch gentle 30 sec x3 8: manual resisted DF and eversion while long sitting 2x15 9: orange rep band hip abduction right with neutral foot postiion 2x10 Skilled Intervention: Skilled judgment was provided in selection of appropriate interventions. Correct performance of therapeutic exercises was facilitated with verbal and visual cuing. Neuromuscular Re-Education: 1: gait in parallel bars with mirror to assist and cues for neutral foot and hip rotation position 3: focus on item 20 feet away with forward walking with emphasis on proper foot alignment during gait. thsi was repeated x 3.25 Skilled Intervention: Education in proprioceptive/kinesthetic awareness during dynamic activities. Billing Therapeutic Exercise Treatment Minutes: 25 Neuromuscular Re-Education Treatment Minutes: 10 Total Treatment Time Minutes (timed/untimed): 35 Julianne Saab PT documented in this encounterWilson Memorial Hospital08-10-2022 History of Present illness Narrative* Charleen Rocha, PT - 12/05/2021 2:55 PM EDT Episode Visit Count: 9 Therapist That Will Oversee The Plan Of Care: Julianne Saab Start of Care Date: 10/31/21 Onset Date: 09/26/21 Plan of Care Certification Date: 10/31/21 Next Certification Due Date: 01/09/22 Patient Identified by Name and Date of : Yes REHABILITATION AND SPORTS THERAPY PHYSICAL THERAPY TREATMENT NOTE ASSESSMENT: Judi Krause tolerated the session with fatigue. She demonstrated improvements in right foot alignment during gait and difficulty with foot alignment as she fatigues.. The patient will continue to benefit from ongoing skilled physical therapy to progress toward set goals. PLAN FOR NEXT VISIT: Continue to progress gait and right ankle strength SUBJECTIVE: Patient Reason for Visit: Patient reports no pain right ankle. She reports not sure howshe is doing with walking. She jules falls or near falls. Pain: Pain Pain Level: 0 Post Treatment Pain Post Treatment Pain Level: No Change Post Treatment Symptoms: fatigue noted in legs OBJECTIVE MEASURES WITH LEVEL OF FUNCTION: More consistent right foot alignment during gait today.. TREATMENT: Therapeutic Exercise: 1: seated LAQ with efforts to maintain neutral foot position 2x12 (good form today!) 2: seated with proper knee flexion and hip at neutral, heel slides with knee flexion and extension 2x12 3: seated arch lift with some activiation of mm but difficult 2x15 4: ankle circles CW and CCW 3x10 5: active DF 2x15 6: AAROM for inversion 2x15 7: passive gastroc stretch gentle 30 sec x3 8: manual resisted DF and eversion while long sitting 2x15 9: orange rep band hip abduction right with neutral foot postiion 2x10 Skilled Intervention: Patient was educated in proper exercise technique and purpose for exercises. Skilled judgment was provided in selection of appropriate interventions. Correct performance of therapeutic exercises was facilitated with verbal and visual cuing. Neuromuscular Re-Education: 1: gait in parallel bars with mirror to assist and cues for neutral foot and hip rotation position 2: Marching on level using mirror for visual feed back back and forth from bike to // bars x 3 3: focus on item 20 feet away with forward walking with emphasis on proper foot alignment during gait. thsi was repeated x 3.25 Skilled Intervention: Skilled judgment used to assess appropriate program for balance and coordination activity. Insured patient safety with use of gait belt and contact guard assist. Billing Therapeutic Exercise Treatment Minutes: 23 Neuromuscular Re-Education Treatment Minutes: 12 Total Treatment Time Minutes (timed/untimed): 35 ARA Frazier, PT documented in this encounterWilson Memorial Hospital08-09-2022 Miscellaneous Notes* Telephone Encounter - Jake Torres MD - 12/04/2021 12:57 PM EDT Patient's request for medication is as follows Requested Prescriptions Signed Prescriptions Disp Refills anastrozole (ARIMIDEX) 1 mg tablet 90 tablet 3 Sig: Take 1 tablet by mouth once daily. Authorizing Provider: JAKE TORRES Order entered - please phone pharmacy and notify patient. Jake Torres MD * Telephone Encounter - Christa Elizabeth Pss - 12/04/2021 12:37 PM EDT Patient has been identified by name and date of : Yes Last office visit in this department: Visit date not found RX INSTRUCTIONS: Patient aware RX will be sent to pharmacy. No need to notify patient. Patient phones requesting refills as follows: Requested Prescriptions Pending Prescriptions Disp Refills anastrozole (ARIMIDEX) 1 mg tablet 90 tablet 3 Sig: Take 1 tablet by mouth once daily. Please review and advise. Christa Elizabeth Pss documented in this encounterWilson Memorial Hospital08-08-2022 Miscellaneous Notes* Telephone Encounter - Monae Mccormack RN - 12/03/2021 2:22 PM EDT Images from the original note were not included. Patient Angiogram Instructions Diagnostic Angiogram Instructions for your procedure on 01/25/22 Prior to Procedure Complete Labs as ordered-- may do at local facility - If labs not completed at a [facility] Facility please fax to: [phone] - You do not need to fast before your labs Set-up a reliable parts delivery driver to bring you and take you home after your procedure. Day Before Procedure If you have not received a phone call with your arrival time by the day before your procedure, please call [phone]. Night Before procedure No eating any solid food after midnight - This includes gum, mints, or smoking Morning of Procedure Do not wear any jewelry, fake nails, or makeup If you have inhalers for a respiratory condition, please bring them with you to your appointment Avoid applying any hair products What you should bring to the hospital - ID, Insurance Card You may drink up to 12oz or 1 cups of water up to 2 hours prior to your scheduled arrival time. Medications You may take your usual morning medications including aspirin Diabetic Medications: - DO NOT take metformin day of and one day after your procedure. - If you take rapid-acting (short acting) insulin DO NOT take it day of procedure - If you take LONG ACTING (Lantus) take 1/2 usual dose - PLEASE NOTIFY THE RADIOLOGY NURSE IF YOU ARE DIABETIC ON DAY OF PROCEDURE Procedure will be completed at [address] Angiogram Details What is an angiogram? Angiography is a way to produce x-ray pictures of the insides of blood vessels. When blood vessels are blocked, narrowed, damaged, or abnormal in any way, problems including stroke may occur. During the test You will be asked to change into a hospital gown. The test itself will take approximately 1-2 hours. Moderate sedation will be given. During the angiogram, a long slender tube called a catheter is inserted through a small incision slowly and carefully threaded through the artery (either the femoral artery located at the top of yourthigh or the radial artery located at the wrist) until its tip reaches the segment of vessel to be examined by angiography. A small amount of IV contrast is injected into the blood vessel segment through the catheter and x-rays are taken. The contrast agent enables the blood vessels to appear on the x-ray pictures. After the test Your neurological status and procedure site will be monitored for 2 to 6 hours in the post procedure area. If your femoral artery was used, it will be important for you to lay flat and keep your leg straight to reduce the risk of bleeding. If this was a diagnostic procedure you will discharged home and your doctor will call you with your results within two weeks. If you do not hear from your physician s office, please call. Discharge Instructions following Endovascular Procedures Diet Resume your usual diet Activity Refrain from strenuous or moderate exertion such as weight lifting, jogging, or running for 3-4 days No heavy lifting >10lbs for 3 days You may resume other normal activity, we encourage moderate activity. Driving You may drive after the day of your procedure. However, if you are taking a narcotic or strong pain medication you should not drive until pain is well controlled by over the counter medications alone. Incision Care Inspect your groin or wrist daily for five days for any change in the following: color, swelling, decreased sensation, increased drainage or bruising. If noticeable change, please contact your providers office. It is normal to have some redness/bruising and swelling in the area where the catheter was placed. These symptoms should resolve in several days. If you wish, you may use a warm compress over the area for 10-15 minutes for several times per day. If you have questions: Normal business hours, please call your physician s office. Nights and weekends, you can call [phone] or and ask for the neurosurgery resident administrative professional for more urgent questions. If you have any signs of stroke please proceed to the closest emergency department, you may choose to notify our office afterwards. (weakness/numbness or tingling isolated to one side of body, difficulty speaking or understanding, facial droop, visual loss or double vision in one or both eyes, loss of consciousness, severe headache) Pain Control Headache and incision discomfort are normal. In most cases, the use of over the counter medications, Tylenol, is often sufficient to control this pain. Within the first few days after your procedure we advise limiting Aleve/ibuprofen as it may increase bleeding risk. Bathing There are no restrictions against taking a shower. However, we advise against taking baths for one week if the femoral or groin site is used. Patchy hair loss is not expected but can occur. This is normal as a result of the x-ray necessary during the procedure. This is not a permanent complication. Return to Work In most cases, you may return to work 1-2 days after a diagnostic procedure or 1 week for an intervention. There are usually no work-related restrictions. Please call or mychart your physicians's office with any questions regarding the above recommendations. Sincerely, Your Cerebrovascular Team documented in this encounterWilson Memorial Hospital08-08-2022 History of Present illness Narrative* Monae Mccormack RN - 12/03/2021 1:34 PM EDT Schedule 1 yr f/u cerebral angiogram w/Dr Zaragoza or covering physician -- see orders and surgical request. documented in this encounterWilson Memorial Hospital08-08-2022 History of Present illness Narrative* Charleen Rocha, PT - 12/03/2021 1:26 PM EDT Episode Visit Count: 8 Therapist That Will Oversee The Plan Of Care: Julianne Saab Start of Care Date: 10/31/21 Onset Date: 09/26/21 Plan of Care Certification Date: 10/31/21 Next Certification Due Date: 01/09/22 Patient Identified by Name and Date of : Yes REHABILITATION AND SPORTS THERAPY PHYSICAL THERAPY TREATMENT NOTE ASSESSMENT: Judi Krause tolerated the session with no issues. She demonstrated difficulty with decrease ankle strength and keeping foot in proper alignment and improvements in gait with verbal cues and mirror for visual feedback.. The patient will continue to benefit from ongoing skilled physical therapy to progress toward set goals. PLAN FOR NEXT VISIT: [place] to progress ankle strength and proper foot alignment with gait. SUBJECTIVE: Patient Reason for Visit: Patient reports the right ankle has no pain. She reports feelingabout the same. She reports she has to concentrate to walk normal. Pain: Pain Pain Level: 0 OBJECTIVE MEASURES WITH LEVEL OF FUNCTION: Improvement with gait with verbal and visual feedback on level surface. TREATMENT: Therapeutic Exercise: 1: seated LAQ with efforts to maintain neutral foot position 2x10 2: seated with proper knee flexion and hip at neutral, heel slides with knee flexion and extension 2x12 3: seated arch lift with some activiation of mm but difficult 2x15 4: ankle circles CW and CCW 3x10 5: active DF 2x15 6: AAROM for inversion 2x15 7: passive gastroc stretch gentle 30 sec x3 8: manual resisted DF and eversion while long sitting 2x15 9: orange rep band hip abduction right with neutral foot postiion 2x10 Skilled Intervention: Patient was educated in proper exercise technique and purpose for exercises. Skilled judgment was provided in selection of appropriate interventions. Correct performance of therapeutic exercises was facilitated with verbal and visual cuing. Neuromuscular Re-Education: 1: gait in parallel bars with mirror to assist and cues for neutral foot and hip rotation position 2: hip flexion to blue and green step wtih cues and assistance for alignment right 2x10 3: focus on item 20 feet awat with forward walking with emphasis on proper foot alignment during gait. thsi was repeated x 3.25 Skilled Intervention: Skilled judgment used to assess appropriate program for balance and coordination activity. Billing Therapeutic Exercise Treatment Minutes: 23 Neuromuscular Re-Education Treatment Minutes: 17 Total Treatment Time Minutes (timed/untimed): 40 ARA Frazier PT documented in this encounterWilson Memorial Hospital08-04-2022 Miscellaneous Notes* Letter - Mammography Coordinator - 11/29/2021 4:34 PM EDT November 29, 2021 PID: [id number] Judi Krause [id number] [facility] [address] [place] [address] Dear Ms. Krause, We are pleased to inform you that the results of your recent breast imaging exam on 11/29/2021 are normal. Early detection of cancer is very important. We also understand recommendations regarding breast cancer screening are controversial. Please discuss with your primary care provider which strategy is best for you and whether a mammogram is right for you. Your imaging studies and report will be kept on file at [facility] as part of your permanent medical record and are available for your continuing care. Thank you for allowing us to help in meeting your health care needs. Sincerely, Dr. Parker Interpreting Radiologist [facility] (Normal over 40) documented in this encounterWilson Memorial Hospital08-04-2022 History of Present illness Narrative* Mindi Lieberman - 11/29/2021 10:10 AM EDT Radiology Service Progress Note PATIENT NAME: Judi Krause DATE OF SERVICE: November 29, 2021 TIME: 10:59 AM PATIENT IDENTITY VERIFICATION COMPLETED USING TWO (2) IDENTIFIERS: Name and Date of confirmedby patient verbally. FALL SCREENING: Has the patient had 2 falls in the last year or 1 fall with injury or currently using an Ambulatory Assistive Device (Walker, Cane, Wheelchair, Crutches, etc.)? No PATIENT GENDER DATA: Female. status: : No status: NO. PATIENT RELEVANT IMPLANT DATA REVIEWED: Not Applicable RADIOLOGY DEPARTMENT: Mammography PERIPHERAL IV DATA: Not applicable SIGNED BY: Mindi Lieberman November 29, 2021 10:59 AM documented in this encounterWilson Memorial Hospital08-04-2022 Instructions* Patient Instructions* Monae Muhammad RN - 11/29/2021 9:33 AM EDT General Breast Health Recommendations A healthy body helps promote healthy breasts. If you smoke, please consider a smoking cessation program. If you do not exercise, please consider starting an exercise program if you are able to, even if it is just walking in your neighborhood. Research shows that obesity, especially post-menopausal obesity, is a risk factor for breast cancer. Obtaining calcium in your diet or taking a calcium supplement that contains vitamin D is good for your bones. There is evolving evidence that Vitamin D supplementation may also help to decrease breast cancer risk. If you are post-menopausal and are bothered by hot flashes and still have a uterus, combined estrogen-progesterone preparations can increase your risk of breast cancer if taken for longer than five years. Alcohol is also an under-recognized risk factor. Every drink you have daily increases your breast cancer risk by 10%. Mammograms save lives. Have an annual mammogram annually beginning at age 40. Continue annual mammograms as long as you remain in good health. Breast self-exam, performed on day 7 of your menstrual cycle, can also be very helpful. Know your breasts and report changes to your health care provider or breast specialist. Clinical breast exams by your primary care provider or breast specialist are recommended annually every 1-3 years for women over the age of 20 and annually after the age of 40. Increased frequency ofthe clinical exam may be recommended for women at increased risk of breast cancer. Risk factors for breast cancer: Being a woman Family history of breast cancer Early menarche (onset of menses) prior to age 14 Nulliparity (never had children) First child after age 31 Late menopause (stopping of periods) after age 56 History of breast biopsy that showed atypical cells (ADH, ALH, LCIS, FEA) Presence of a genetic mutation (BRCA1, BRCA2, PTEN, P53, CDH1) History of chest wall irradiation (such as with Hodgkin's Lymphoma) prior to age 30 Personal history of breast cancer Post-menopausal Obesity Combined hormone therapy (estrogen and progesterone) for greater than 5 years Alcohol consumption of greater than 7 alcohol-containing drinks per week Breast density If you have a family history of breast or ovarian cancer, review this with your primary care provider or breast specialist to see if a referral for genetic counseling is recommended. 5-10% of breast cancers and up to 15% of ovarian cancers are linked to a genetic mutation. Signs of hereditary breast cancer syndrome include breast cancer that occurs under the age of 50, ovarian cancer at any age, male breast cancer, multiple family members affected with breast cancer, and a history of Ashkenazi Bahai ancestry. Breast pain is very common and usually is not a sign of cancer, but should be evaluated by a breastspecialist. For comfort, simply reducing caffeine (coffee, tea, chocolate, energy drinks, sodas) inyour diet can provide relief. A properly fitted bra can also be helpful in reducing breast pain. Ifthose two measures do not provide relief, taking Evening Lisbon Oil 1000mg capsules twice a day for a short period of time (three to four months) may be helpful. Many women wonder about their breast density. Dense breast tissue is, in and of itself, a relatively common condition which could hide abnormalities in a screening mammogram. This information is not provided to cause undue concern; rather, it is to raise your awareness and promote discussion with your health care provider regarding the presence of dense breast tissue in addition to other risk factors. If you would like to compliment one of our caregivers you encountered today, you may do so at [email or web address]. Thank you ! documented in this encounterWilson Memorial Hospital08-04-2022 Nurse Note* Monae Muhammad RN - 11/29/2021 9:32 AM EDT Last mammogram on: 11/28/20 Results: normal Is the patient active on MyChart Yes Electronically Signed By: Monae Muhammad RN In Department: BREAST CENTER REVIEW OF PATIENT HISTORY: OB History T0 L3 SAB0 IAB0 Ectopic1 Multiple0 Live Births0 Comment: All 3 vaginal deliveries. 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, unspecified Dysfunction of eustachian tube Essential hypertension, benign Generalized anxiety disorder Anxiety, Generalized Internal hemorrhoids without mention of complication Lumbago Nonspecific abnormal finding in stool contents Ocular migraine Osteoporosis, unspecified Type 2 diabetes mellitus without complication, without long-term current use of insulin (HCC) Unspecified constipation Unspecified essential hypertension Varicose veins of other sites PAST SURGICAL HISTORY Procedure Laterality Date ABDOMINAL SURGERY HX 2004 tummy tuck ANESTHESIA HERNIA REPAIR LOWER ABDOMEN NOS ANKLE SURGERY HX Right 04/2019 Tendon repair BREAST LUMPECTOMY HX Left 01/2020 BREAST LUMPECTOMY HX Bilateral 01/2020 re-excision of margins COIL, EMBOLIZATION 2005 aneurysm COLONOSCOPY W/BIOPSY SINGLE/MULTIPLE 08/12/2007 FASCT PALM W/WO Z-PLASTY TISSUE REARGMT/SKN GRFT Right 01/05/2019 Right 5th finger palmar fasciectomy HAMMERTOE REVISION, ONE TOE Left 2016 HYSTERECTOMY HX 12/03/1988 IRIDOTOMY/IRIDECTOMY BY LASER Right OPEN TREATMENT,TRIMALLEOLAR ANKLE FRACTURE Right 05/29/2018 [facility] PICC LINE INSERT/CONSULT 01/23/2021 PICC LINE INSERT/CONSULT 01/29/2021 REMV CATARACT EXTRACAP,INSERT LENS Bilateral SHX CRANIOTOMY Left 2005 aneurysm TOTAL KNEE REPLACEMENT Right 07/2020 VEIN SURGERY (SPECIFY LOCATION) HX 2009 Dr. Bahena Social History Tobacco Use Smoking status: Never Smoker Smokeless tobacco: Never Used Vaping Use Vaping Use: Never used Substance Use Topics Alcohol use: No Drug use: Never documented in this encounterWilson Memorial Hospital08-04-2022 History of Present illness Narrative* Sheela Celeste PA-C - 11/29/2021 9:00 AM EDT MEDICAL BREAST PATIENT NAME: Judi Krause REFERRAL: She is referred by Dr. Tasha Lmi for an opinion regarding survivorship care. My final recommendations will be communicated back to the requesting physician by the way of the shared medical record, fax, or via US Mail. HISTORY of PRESENT ILLNESS: Judi Krause is a 76 year old year old postmenopausal female who presents to the [facility] [place] today to establish care. The patient denies any breast masses, pain, skin changes, or nipple discharge. She has a history of BILATERAL (left Stage IB T2N1; right Stage 0 Tis) breast cancer in 2019. BREAST CANCER HISTORY: 11/23/2019 she presented with a self discovered lump in the LEFT breast and had bilateral diagnosticimaging with left ultrasound showing a 0.8 cm simple cyst at 1:00 and a 0.5 cm simple cyst at 12:00; at the time patient also reported concern for redness and left nipple inversion and therefore a surgical consult was recommended. However, there were also new clustered pleomorphic calcifications onthe RIGHT which were recommended for stereotactic biopsy. 12/03/2019 she had a LEFT nipple skin excision showing grade 2 IDC which was ER+(99%)/NM+( 99%)/HER2-. 12/29/2019 she went on to a RIGHT stereotactic core biopsy which showed rare atypical intraductal epithelial cells with thin sclerosed ducts with focal mucin. 01/26/2020 she had a preop breast MRI showing the lesion in the right breast at 6:00(site of biopsy-proven atypia) which was suspicious of malignancy and surgical consult was recommended; the mass within the left breast in the retroareolar region was consistent with the biopsy-proven malignancy. 01/28/2020 she subsequently had a left lumpectomy with SLNB and right excisional biopsyper Dr. Lim. Pathology on the LEFT showed 2.5 cm grade 2 invasive mammary carcinoma with mixedductal and lobular features 1/2 SLN were involved by macrometastasis (9mm largest deposit; 4mm JULIANNA). The medial margin was positive for DCIS. LVI was present. Pathology on the RIGHT showed 5 cm grade3 DCIS with a positive posterior margin (1mm). 02/11/2020 she went back for reexcision of margins bilaterally. Further discussion with Dr. Lim resulted in no further surgical excision, however she did receive adjuvant XRT bilaterally. Her OncotypeDX score was 9, corresponding to a 12% risk of distant recurrence at 10 years, therefore she did not receive adjuvant chemotherapy. She started taking adjuvant anastrozole 05/17/2020 which is planned for 5-10 years. 03/01/2020: Judi Krause's Common Hereditary Cancers Panel through [employer] was negative for a deleterious mutation. 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 Pre-operative MRI: 01/26/2020 she had a preop breast MRI showing the lesion in the right breast at 6:00 (site of biopsy-proven atypia) which was suspicious of malignancy and surgical consult was recommended; the mass within the left breast in the retroareolar region was consistent with the biopsy-proven malignancy. Has Patient had Genetic Testing? Yes; negative gene-panel testing as above Neoadjuvant Chemotherapy: none Radiation Therapy: Whole breast irradiation Adjuvant Chemotherapy: none. Adjuvant Hormonal Therapy: Began Anastrozole in 04/2020 and planned for 5-10 years. Oncotype recurrence score: 9 corresponding to a 12% risk of distant recurrence at 10 years. Her vitamin D level was Vitamin D 25 Hydroxy (ng/mL) Date Value 10/17/2021 42.7 06/11/2021 25.7 She takes vitamin D 50,000 units. BMD: Yes, Date in Epic: 05/04/2018; lowest T Score - normal; she is receiving adjuvant Zometa Q6 months x 6 doses. PERSONAL BREAST HISTORY: Past breast history (prior to this encounter) is as follows: Breast biopsy: Yes, 12/03/2019 left nipple skin excision for cancer diagnosis as above. 12/29/2019 right stereotactic biopsy showing rare atypical intraductal epithelial cells with sclerosed ducts with focal mucin (excised). Breast cysts: No Breast surgery: Yes, 01/28/2020 left lumpectomy with SLNB and right excisional biopsy. 02/11/2020 reexcision of margins bilaterally. Breast cancer: Yes, left Stage IB T2N1; right Stage 0 Tis, treated as above CANCER SURVEILLANCE: Mammograms: Yes, Date in [facility]: 11/28/2020; results - negative Breast MRI: Yes, Date in Epic: 01/26/2020; results - as above Colonoscopy: Yes, Date in [facility]: 08/19/2017; results - multiple polyps; pathology reports not available to review RISK FACTORS FOR BREAST CANCER: Age at the onset of menses: 13 years of age. P: 3 Age at the of first child: 21 years of age. She breast fed. Age at menopause: Not stated. Post-menopausal hormone therapy: Yes, Estrace (unknown amount of time; stopped 11/2019) She is S/P total hysterectomy (per her report; reason not stated) History of Mantle Radiation prior to the age of 31: No Obesity: No, Body mass index is 24.41 kg/m . 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, unspecified Dysfunction of eustachian tube Essential hypertension, benign Generalized anxiety disorder Anxiety, Generalized Internal hemorrhoids without mention of complication Lumbago Nonspecific abnormal finding in stool contents Ocular migraine Osteoporosis, unspecified Type 2 diabetes mellitus without complication, without long-term current use of insulin (HCC) Unspecified constipation Unspecified essential hypertension Varicose veins of other sites Patient specifically denies history of: DVT, PE, migraine headaches WITH AURA, migraine headaches without aura, abnormal uterine bleeding, abnormal uterine biopsies, osteopenia and osteoporosis. PAST SURGICAL HISTORY: PAST SURGICAL HISTORY Procedure Laterality Date ABDOMINAL SURGERY HX 2004 tummy tuck ANESTHESIA HERNIA REPAIR LOWER ABDOMEN NOS ANKLE SURGERY HX Right 04/2019 Tendon repair BREAST LUMPECTOMY HX Left 01/2020 BREAST LUMPECTOMY HX Bilateral 01/2020 re-excision of margins COIL, EMBOLIZATION 2005 aneurysm COLONOSCOPY W/BIOPSY SINGLE/MULTIPLE 08/12/2007 FASCT PALM W/WO Z-PLASTY TISSUE REARGMT/SKN GRFT Right 01/05/2019 Right 5th finger palmar fasciectomy HAMMERTOE REVISION, ONE TOE Left 2016 HYSTERECTOMY HX 12/03/1988 IRIDOTOMY/IRIDECTOMY BY LASER Right OPEN TREATMENT,TRIMALLEOLAR ANKLE FRACTURE Right 05/29/2018 [facility] PICC LINE INSERT/CONSULT 01/23/2021 PICC LINE INSERT/CONSULT 01/29/2021 REMV CATARACT EXTRACAP,INSERT LENS Bilateral SHX CRANIOTOMY Left 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 Bahena SOCIAL HISTORY: Social History Tobacco Use Smoking status: Never Smoker Smokeless tobacco: Never Used Vaping Use Vaping Use: Never used Substance Use Topics Alcohol use: No Drug use: Never Caffeine intake: Never Exercise: Physically active but no regular exercise program. FAMILY HISTORY: Family history of breast cancer: Mother (age not stated) Family history of ovarian cancer: None Number of sisters: 4 Number of maternal aunts: 6 Number of paternal aunts: 0 Ashkenazi Ancestry: No Has Patient had Genetic Testing? Yes; negative gene-panel testing as above Other Cancer: None - There is no family history of prostate, colon, uterine, pancreatic, gastric, brain, renal cell orthyroid cancer. - There is no family history of melanoma, sarcoma or leukemia. Osteoporosis: None Stroke: None Blood Clot: None Heart attack: None Thyroid Nodule or Goiter: None Autism: None FAMILY HISTORY Problem Relation Age of Onset Breast Cancer Mother 72 Hypertension Mother Alzheimer's Disease Mother Coronary Artery Disease Father Alzheimer's Disease Sister Breast Cancer Maternal Aunt No Ocular Disease Other MEDICATIONS: zolpidem (AMBIEN) 10 mg Take 0.5-1 tablets by mouth at bedtime as needed (insomnia) for up to 14 days. lisinopril (ZESTRIL, PRINIVIL) 10 mg tablet Take 1 tablet by mouth once daily. anastrozole (ARIMIDEX) 1 mg tablet Take 1 mg by mouth once daily. Vitamin E, dl, acetate, 1,000 unit capsule 1,000 Units. vitamin A (AQUASOL A) 10,000 unit capsule Take by mouth. traMADol (ULTRAM) 50 mg tablet Cholecalciferol, Vitamin D3, 125 mcg (5,000 unit) cap 5,000 Units. flaxseed-omega3,6,9-fatty acid 1,300-670-155 mg cap TWICE A DAY aspirin, enteric coated (ASPIRIN, ENTERIC COATED) 81 mg EC tablet Take by mouth. cyanocobalamin (VITAMIN B-12) 100 mcg tab Take 100 mcg by mouth once daily. vitamin b complex capsule Take 1 capsule by mouth once daily. elderberry fruit (ELDERBERRY ORAL) Take by mouth. vitamins A and D (VITAMINS A & D ORAL) Take by mouth. fluticasone (FLONASE) 50 mcg/actuation nasal spray Use 2 Sprays in each nostril once daily. For nasal drainage and congestion rinse mouth after use. Disp: one bottle nortriptyline (PAMELOR) 25 mg capsule Take 1 capsule by mouth daily at bedtime. anastrozole (ARIMIDEX) 1 mg tablet Take 1 tablet by mouth once daily. trfs-ooknq-tv1-oai-gsw-vdmt-st (GLUCOSAMINE CHONDROITIN PLUS) 332-246-33-54 mg cap Take 1 capsule by mouth once daily. TURMERIC ORAL Take by mouth. On hold folic acid 400 mcg tablet Take 400 mcg by mouth once daily. ascorbic acid, vitamin C, (VITAMIN C) 500 mg tablet Take 500 mg by mouth once daily. ALLERGIES: ALLERGIES Allergen Reactions Codeine GI Upset Morphine GI Upset Prozac [Fluoxetine] Intolerance nervousness REVIEW OF SYSTEMS: The patient specifically denies unintentional weight loss, insomnia, hot flashes, night sweats, abnormal swelling in the arms or legs, chest pain, shortness of breath, persistant cough, heartburn, urinary incontinence, vaginal dryness, decreased libido, unusual bony pains or severe headaches. PHYSICAL EXAM: Ht 161.3 cm (5' 3.5) Wt 63.5 kg (140 lb) BMI 24.41 kg/m General: well-nourished, healthy, female, alert and oriented x 3, calm Skin: warm, dry, skin color, texture, turgor normal Head/Eyes: normocephalic, atraumatic and anicteric Breasts and Regional Lymph Nodes: The patient was examined in the upright and supine positions. There is no concerning supraclavicular, infraclavicular or axillary lymphadenopathy. The breasts are symmetrical in appearance without visible skin or nipple changes. She is s/p left lumpectomy with SLNB; the left nipple is surgically absent. There is no evidence of local recurrence on the left. She iss/p right lumpectomy; there is no evidence of local recurrence on the right. There are no dominant breast masses or nipple discharge on the right. The breasts were mildly tender bilaterally (non-focal). There was mild to moderate fibrocystic change throughout. Chest - clear Cor - rrr, no m/r/g IMAGING: Bilateral screening mammograms were performed today in the Breast Center and she will be notified of the results. There are scattered fibroglandular densities. Assessment IMPRESSION/PLAN: Judi Krause is a 76 year old year old female with bilateral fibrocystic change, use of Anastrozole, and personal history of BILATERAL breast cancer (left Stage IB T2N1; right Stage 0 Tis) s/p bilateral lumpectomy. There is no evidence of malignancy. The patient was reassured as to the benign nature of her clinical findings. She will be followed annually in the Breast Center for clinical evaluation and annual screening mammograms, alternating with her Medical Oncology team. Genetics referral made: No: Reason: Negative gene panel testing as above Chemoprevention discussion: She is taking adjuvant anastrozole (began 05/17/2020) which is managed by her medical oncologist. The patient is advised to exercise regularly, achieve/maintain ideal body weight, and to limit alcohol consumption to less than 7 drinks weekly for breast cancer risk reduction and overall health. She will follow up with Raphael Perdomo CNP (Medical Oncology) 05/24/2022 as scheduled. She will then return in one year for her annual clinical evaluation and bilateral screening mammogram. She will call me in the interim should she have any questions or concerns. My final recommendations will be communicated back to the requesting physician by way of shared medical record or letter via US mail. I spent a total of 40 minutes minutes on the date of the service which included preparing to see the patient, [id number] patient care, completing clinical documentation, performing a medically appropriate examination, counseling and educating the patient/family/caregiver and ordering medications,tests, or procedures. Sheela Celeste PA-C Medical Breast Specialist CC: Tasha Schaeffer [phone] [facility] [address] [address] [place] [address] documented in this encounterWilson Memorial Hospital08-03-2022 History of Present illness Narrative* Julianne Saab, PT - 11/28/2021 3:42 PM EDT Episode Visit Count: 7 Therapist That Will Oversee The Plan Of Care: Julianne Saab Start of Care Date: 10/31/21 Onset Date: 09/26/21 Plan of Care Certification Date: 10/31/21 Next Certification Due Date: 01/09/22 Patient Identified by Name and Date of : Yes REHABILITATION AND SPORTS THERAPY PHYSICAL THERAPY TREATMENT NOTE ASSESSMENT: Judi Krause tolerated the session with no issues. She demonstrated improvements in active arch lift but overall no change of gait pattern with LE ER . The patient will continue to benefit from ongoing skilled physical therapy to progress toward set goals. PLAN FOR NEXT VISIT: Continue to use mirror and line on floor for feeback with gait activities SUBJECTIVE: Patient Reason for Visit: Pt notes that she can not tell if she is walking better. Pain: Pain Pain Level: 0 Post Treatment Pain Post Treatment Pain Level: No Change OBJECTIVE MEASURES WITH LEVEL OF FUNCTION: increased AROM for FDF and inversion right ankle TREATMENT: Therapeutic Exercise: 1: seated LAQ with efforts to maintain neutral foot position 2x10 2: seated with proper knee flexion and hip at neutral, heel slides with knee flexion and extension 2x10 3: seated arch lift with some activiation of mm but difficult 2x15 4: ankle circles CW and CCW 3x10 5: active DF 2x10 6: AAROM for inversion 2x15 7: passive gastroc stretch gentle 30 sec x3 8: manual resisted DF and eversion while long sitting 2x15 9: orange rep band hip abduction right with neutral foot postiion Skilled Intervention: Patient was educated in proper exercise technique and purpose for exercises. Skilled judgment was provided in selection of appropriate interventions. Correct performance of therapeutic exercises was facilitated with verbal and visual cuing. Neuromuscular Re-Education: 1: gait in parallel bars with mirror to assist and cues for neutral foot and hip rotation position 2: hip flexion to blue and green step wtih cues and assistance for alignment 3: utilized line on floor for feedback with gait. B hand hold for pt balance Skilled Intervention: Education in proprioceptive/kinesthetic awareness during dynamic activities. Insured patient safety with use of parallel bars, hand hold assist Billing Therapeutic Exercise Treatment Minutes: 15 Neuromuscular Re-Education Treatment Minutes: 20 Total Treatment Time Minutes (timed/untimed): 35 Julianne Saab PT documented in [facility] History of Present illness Narrative* Julianne Saab PT - 11/26/2021 3:41 PM EDT Episode Visit Count: 6 Therapist That Will Oversee The Plan Of Care: Julianne Saab Start of Care Date: 10/31/21 Onset Date: 09/26/21 Plan of Care Certification Date: 10/31/21 Next Certification Due Date: 01/09/22 Patient Identified by Name and Date of : Yes REHABILITATION AND SPORTS THERAPY PHYSICAL THERAPY TREATMENT NOTE ASSESSMENT: Judi Krause tolerated the session with no issues. She demonstrated improvements in gait with use of mirror . The patient will continue to benefit from ongoing skilled physical therapy to progress toward set goals. PLAN FOR NEXT VISIT: increase reps of exs SUBJECTIVE: Patient Reason for Visit: Pt notes that she continues to work on how she is walking. States that exs are about the same Pain: Pain Pain Level: 0 Post Treatment Pain Post Treatment Pain Level: No Change OBJECTIVE MEASURES WITH LEVEL OF FUNCTION: flexion of toes no visible active contraction TREATMENT: Therapeutic Exercise: 1: seated LAQ with efforts to maintain neutral foot position 2x10 2: seated with proper knee flexion and hip at neutral, heel slides with knee flexion and extension 2x10 3: seated arch lift with some activiation of mm but difficult 2x10 4: ankle circles CW and CCW 3x10 5: active DF 2x10 6: AAROM for inversion 2x10 7: passive gastroc stretch gentle 30 sec x3 8: manual resisted DF and eversion while long sitting 2x10 9: orange rep band hip abduction right with neutral foot postiion Skilled Intervention: Patient was educated in proper exercise technique and purpose for exercises. Skilled judgment was provided in selection of appropriate interventions. Correct performance of therapeutic exercises was facilitated with verbal and visual cuing. Neuromuscular Re-Education: 1: gait in parallel bars with mirror to assist and cues for neutral foot and hip rotation position 2: hip flexion to blue and green step wtih cues and assistance for alignment Skilled Intervention: Skilled judgment used to assess appropriate program for balance and coordination activity. Education in proprioceptive/kinesthetic awareness during dynamic activities. Insured patient safety with use of parallel bars Billing Therapeutic Exercise Treatment Minutes: 23 Neuromuscular Re-Education Treatment Minutes: 8 Total Treatment Time Minutes (timed/untimed): 31 Julianne Saab PT documented in this encounterWilson [facility]07-28-[facility]22 History of Present illness Narrative* Julianne Saab PT - 11/22/2021 3:29 PM EDT Episode Visit Count: 5 Therapist That Will Oversee The Plan Of Care: Julianne Saab Start of Care Date: 10/31/21 Onset Date: 09/26/21 Plan of Care Certification Date: 10/31/21 Next Certification Due Date: 01/09/22 Patient Identified by Name and Date of : Yes REHABILITATION AND SPORTS THERAPY PHYSICAL THERAPY TREATMENT NOTE ASSESSMENT: Judi Krause tolerated the session with continued trouble with foot and hip alignmentwith gait. Pt with increased tone throughout which plays a part. Pt encouraged to get appt with neurology with [facility] as she wants to stay in this system . She demonstrated improvements in AROM overall with exs . The patient will continue to benefit from ongoing skilled physical therapy to progress toward set goals. PLAN FOR NEXT VISIT: continue to practice gait with mirror SUBJECTIVE: Patient Reason for Visit: Pt reports no overall changes , continues to work on exs. Pt states that she cancelled her neurology appt. d/t concerns of cost to her. She states that she is willing to see [facility] Pain: OBJECTIVE MEASURES WITH LEVEL OF FUNCTION: Pt with tone in foot , flexion of toes with most movements TREATMENT: Therapeutic Exercise: 1: seated attempts at toe curls with poor flexion activiation of toes 2x10 2: seated with proper knee flexion and hip at neutral, heel slides with knee flexion and extension 2x10 3: seated arch lift with some activiation of mm but difficult 2x10 4: ankle circles CW and CCW 3x10 5: active DF 2x10 6: AAROM for inversion 2x10 7: passive gastroc stretch gentle 30 sec x3 8: manual resisted DF and eversion while long sitting 2x10 Skilled Intervention: Patient was educated in proper exercise technique and purpose for exercises. Skilled judgment was provided in selection of appropriate interventions. Correct performance of therapeutic exercises was facilitated with verbal, visual and tactile cuing. Neuromuscular Re-Education: 1: gait in parallel bars with mirror to assist and cues for neutral foot and hip rotation position 2: hip flexion to blue and green step wtih cues and assistance for alignment Skilled Intervention: Skilled judgment used to assess appropriate program for balance and coordination activity. Education in proprioceptive/kinesthetic awareness during dynamic activities. Insured patient safety with use of parallel bars Billing Therapeutic Exercise Treatment Minutes: 30 Total Treatment Time Minutes (timed/untimed): 30 Julianne Saab PT documented in this encounterWilson [facility] Hospital07-27-[facility]22 History of Present illness Narrative* Raphael Perdomo APRN.MANUAL LATHE OPERATOR - 11/21/2021 1:21 PM EDT Chief Complaint Patient presents with: Established Patient HPI: Judi Krause is a 76 year old female who presents here today for follow up breast cancer. Per Dr. Osman's previous note: H/o was seen seen by Dr. Campbell after presenting with LEFT nipple retraction and abnormal calcifications in the RIGHT breast seen on mammograms performed 11/23/19. 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 The cancer cells were strongly ER+ in 99% of cells, strongly NM+ in 99% of cells, and HER2-negative (0 by IHC). Stereotactic biopsy of the right breast with clip placement performed 12/29/19 showed rare atypical intraductal epithelial cells. She was taking estrogen as Estrace. (Stopped November 2019). On 01/28/20 Ms. Krause underwent excision of the right breast lesion as well as left breast central resection and left axillary sentinel node biopsy. Pathology from this procedure showed: Right breast: DCIS with a positive medial margin. Left breast: One (1) of 2 sentinel nodes was involved, with 4 mm of extranodal extension noted. In the left breast resection was a 25 mm Grade 2 invasive ductal carcinoma with lymphovascular invasionpresent. DCIS was present as well. The final medial margin was involved. S/p 1. RIGHT breast re-excision of margins 2. LEFT breast re-excision of margins on 02/11/[address] Aaron Schaeffer Path: FINAL DIAGNOSIS 1. Left breast additional medial margin, resection (A) - Ductal carcinoma in situ, cribriform type, intermediate grade. - The ductal carcinoma in situ is close (0.1 mm) to multiple inked new margins. 2. Right breast additional deep margin, resection (B) - Extensive healing biopsy site changes. No malignancy is identified. 3. Right breast additional medial margin, resection (C) - - Ductal carcinoma in situ solid type, low grade. - The ductal carcinoma in situ is present 1 mm from the new inked margin. - Small intraductal papilloma with associated microcalcifications. - Healing biopsy site changes. Comment: Immunohistochemical stain for ecadherin is performed on part C and is positive in the DCIS confirming ductal origin. Oncotype Dx assay returned a Recurrence Score of 9, in the low risk range. I do not recommend adjuvant chemotherapy. She will return in 6 weeks or so, after completion of radiation therapy, for re-evaluation and to start anastrozole. RADIATION:03/29/20 to 04/27/20 (Done in [place]/Dr. Storm) Bilateral breasts/left SC and axilla. Current therapy:Arimidex Began 2020 No new concerns today. Appetite:Ok. Energy level:It don't have much. Denies fevers or recent illness. Resp:denies cough or sob Cardiac:denies chest pain/palpitations GI:denies abd pain, n/v, moving bowel regularly :denies dysuria/hematuria Extrem:b/l hand pain prior to AI, occ. 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 Past medical history, appointments, medications, allergies reviewed. No changes. EXAM: BP 121/81 Pulse 106 Temp 36.6 C (97.8 F) Ht 162 cm (5' 3.78) Wt 63.5 kg (140 lb) SpO2 96% BMI 24.20 kg/m APPEARANCE Well appearing, alert, in no acute distress, well-hydrated, well nourished. HEART RRR with normal S1 and S2, no murmurs LUNG clear to auscultation BREAST FEMALE no mass/nodule b/l, L nipple/AC surgically absent/radiation changes, R lower surgicaldefect LYMPH NODES No cervical lymphadenopathy, No supraclavicular lymphadenopathy and No axillary lymphadenopathy. ABDOMEN bowel sounds normoactive, soft, non-tender, non-distended, without organomegaly or palpablemasses EXTREMITIES No edema NEURO Awake, alert and oriented x 3, Normal gait and No involuntary motions. SKIN Skin color, texture, turgor normal, no suspicious rashes or lesions ASSESSMENT/PLAN: 1. Invasive ductal carcinoma of breast, left (HCC) - ICD9: 174.9, ICD10: C50.912 (primary diagnosis) 2. Ductal carcinoma in situ (DCIS) of right breast - ICD9: 233.0, ICD10: D05.11 Stage IB, T2N1, grade 2 invasive carcinoma with mixed ductal and lobular features of the left breast s/p lumpectomy and sentinel node biopsy and then re- excision. It's ER positive (99%, strong), NM positive (99%, strong) and Her2/maria a 0. 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 - No concerning findings on exam. - Tolerating arimidex well. - Continue arimidex. - Imaging per surgeon at main. Follow up as scheduled in November. - Zometa every 6 months x 6 doses total. As scheduled in Mar. - Follow up in 6 months. - Pt. aware to call office with any questions/concerns. The patient indicates understanding of these issues and agrees with the plan. All documentation from previous visit of 06/05/21-Dr. Osman/myself was copied and pasted, documentation has been reviewed and edited as necessary for today's visit. Raphael Perdomo APRN.CNP documented in this encounterWilson [facility] Hospital07-26-2022 History of Present illness Narrative* Julianne Saab PT - 11/20/2021 6:59 AM EDT Episode Visit Count: 4 Therapist That Will Oversee The Plan Of Care: Julianne Saab Start of Care Date: 10/31/21 Onset Date: 09/26/21 Plan of Care Certification Date: 10/31/21 Next Certification Due Date: 01/09/22 Patient Identified by Name and Date of : Yes REHABILITATION AND SPORTS THERAPY PHYSICAL THERAPY TREATMENT NOTE ASSESSMENT: Judi Krause tolerated the session with no issues. She demonstrated improvements in Active ROM. The patient will continue to benefit from ongoing skilled physical therapy to progress toward set goals. PLAN FOR NEXT VISIT: continue with manual resistance as able for right ankle SUBJECTIVE: Patient Reason for Visit: Pt notes that she works on AROM of ankle every chance she gets. Is not sure when she is going to have surgery for left foot. Pain: Pain Pain Level: 0 Post Treatment Pain Post Treatment Pain Level: No Change OBJECTIVE MEASURES WITH LEVEL OF FUNCTION: improved arch lift and active inversion TREATMENT: Therapeutic Exercise: 1: seated attempts at toe curls with poor flexion activiation of toes 2x10 2: seated with proper knee flexion and hip at neutral, heel slides with knee flexion and extension 2x10 3: seated arch lift with some activiation of mm but difficult 2x10 4: ankle circles CW and CCW 3x10 5: active DF 2x10 6: AAROM for inversion 2x10 7: passive gastroc stretch gentle 30 sec x3 8: manual resisted DF and eversion while long sitting 2x10 Skilled Intervention: Skilled judgment was provided in selection of appropriate interventions. Correct performance of therapeutic exercises was facilitated with verbal and visual cuing. Billing Therapeutic Exercise Treatment Minutes: 30 Total Treatment Time Minutes (timed/untimed): 30 Julianne Saab PT documented in this encounterWilson [facility]07-21-2022 History of Present illness Narrative* Julianne Saab PT - 11/15/2021 6:25 PM EDT Episode Visit Count: 3 Therapist That Will Oversee The Plan Of Care: Julianne Saab Start of Care Date: 10/31/21 Onset Date: 09/26/21 Plan of Care Certification Date: 10/31/21 Next Certification Due Date: 01/09/22 Patient Identified by Name and Date of : Yes REHABILITATION AND SPORTS THERAPY PHYSICAL THERAPY TREATMENT NOTE ASSESSMENT: Judi Krause tolerated the session with no issues. She demonstrated improvements in active inversion activation at end of session . The patient will continue to benefit from ongoing skilled physical therapy to progress toward set goals. PLAN FOR NEXT VISIT: increase reps of exs. SUBJECTIVE: Patient Reason for Visit: Pt states that she has been working hard to get the ankle moving better. Pain: Pain Pain Level: 0 Post Treatment Pain Post Treatment Pain Level: 0 OBJECTIVE MEASURES WITH LEVEL OF FUNCTION: better activation but short ROM for inversion TREATMENT: Therapeutic Exercise: 1: seated attempts at toe curls with poor flexion activiation of toes 2x10 2: seated with proper knee flexion and hip at neutral, heel slides with knee flexion and extension 2x10 3: seated arch lift with some activiation of mm but difficult 2x10 4: ankle circles CW and CCW 3x10 5: active DF 2x10 6: AAROM for inversion 2x10 7: passive gastroc stretch gentle 30 sec x3 8: manual resisted DF and eversion while long sitting 2x10 Skilled Intervention: Patient was educated in proper exercise technique and purpose for exercises. Skilled judgment was provided in selection of appropriate interventions. Correct performance of therapeutic exercises was facilitated with verbal and visual cuing. Billing Therapeutic Exercise Treatment Minutes: 30 Total Treatment Time Minutes (timed/untimed): 30 Julianne Saab PT documented in this encounterWilson [facility] Hospital07-19-2022 History of Present illness Narrative* Julianne Saab PT - 11/13/2021 4:46 PM EDT Episode Visit Count: 2 Therapist That Will Oversee The Plan Of Care: Julianne Saab Start of Care Date: 10/31/21 Onset Date: 09/26/21 Plan of Care Certification Date: 10/31/21 Next Certification Due Date: 01/09/22 Patient Identified by Name and Date of : Yes REHABILITATION AND SPORTS THERAPY PHYSICAL THERAPY TREATMENT NOTE ASSESSMENT: Judi Krause tolerated the session with no issues. She demonstrated difficulty with active control right ankle and foot but improved with some assist by end of session . The patient will continue to benefit from ongoing skilled physical therapy to progress toward set goals. PLAN FOR NEXT VISIT: will continue to work on promoting active control for right ankle SUBJECTIVE: Patient Reason for Visit: Pt notes that she had nerve conduction study which showed alot of neuropathy and she is going to be scheduled with a neurologist . Notes that she has had a difficult time with exs d/t limited active control of foot toes ankle Pain: Pain Pain Level: 0 Post Treatment Pain Post Treatment Pain Level: 0 OBJECTIVE MEASURES WITH LEVEL OF FUNCTION: better active eversion than inversion TREATMENT: Therapeutic Exercise: 1: seated attempts at toe curls with poor flexion activiation of toes 2x10 2: seated with proper knee flexion and hip at nuetral rotations, active eversion / inversion of ankle 2x10 3: seated arch lift with some activiation of mm but difficult 2x10 4: ankle circles CW and CCW 2x10 5: active DF 2x10 6: AAROM for inversion 2x10 7: passive gastroc stretch gentle 30 sec x3 Skilled Intervention: Patient was educated in proper exercise technique and purpose for exercises. Reviewed and educated patient on additions/changes for home exercise program . Skilled judgment was provided in selection of appropriate interventions. Correct performance of therapeutic exercises was facilitated with verbal and visual cuing. Neuromuscular Re-Education: 1: gait in parallel bars with attempts to keep LE in neutral alignment 2: hip flexion to 6 step with emphasis on neutral alignment 3: heel slides with emphasis on neutral foot alignment Skilled Intervention: Education in proprioceptive/kinesthetic awareness during sitting, standing and dynamic activities. Insured patient safety with use of parallel bars Home Exercise Program Assigned: 1: ankle circles Billing Therapeutic Exercise Treatment Minutes: 25 Neuromuscular Re-Education Treatment Minutes: 15 Total Treatment Time Minutes (timed/untimed): 40 Julianne Saab PT documented in this encounterWilson [facility]07-[facility] History of Present illness Narrative* Julianne Saab PT - 10/31/2021 2:09 PM EDT Episode Visit Count: 1 Therapist That Will Oversee The Plan Of Care: Julianne Saab Start of Care Date: 10/31/21 Onset Date: 09/26/21 Plan of Care Certification Date: 10/31/21 Next Certification Due Date: 01/09/22 Patient Identified by Name and Date of : Yes REHABILITATION AND SPORTS THERAPY PHYSICAL THERAPY EVALUATION PLAN OF CARE: Assessment: Judi Krause presents with diagnosis of right post. tibialias insuffiency that interferes with rising from a chair;stair negotiation;physical activities . She presents with impairments in ADL's, balance, coordination, gait, independence in exercise, joint mobility, overall function, range of motion, sensation and strength . . Prognosis for therapy is Fair due to: chronic nature of impairments;clinical presentation . Pt with neuropathy of Bilateral lower legs from knee down numbness and very poor proprioception. She also notes numbness in hands and difficulty with coordination ofuse of fingers / hands which has been present for some time Concern for other neurological issue pre sent affecting upper and lower extremities. She will benefit from skilled therapy services to meet the goals established for this plan of care as noted below. Goals for Episode of Care: created on 10/31/21 through 01/09/22 Improve right LE alignment for gait pattern [place] in home exercise program. Patient will increase active ROM of right ankle by 3-5 degrees to allow pt to to improve gait mechanics / gait pattern . Patient will demonstrate increase in right LE strength of right foot and ankle to 4/5 throughout inorder to improve function for prior functional tasks. Patient Goals: Pt wants to walk without foot turning out as much and not tripping as much. Planned Interventions, Frequency, and Duration: Current Frequency: 2x/week Duration: 6 weeks Total Number of Visits Planned: 12 Planned Treatment Interventions: Therapeutic exercise (18795);Neuromuscular re- education (90496);Self-fdc management (80262);Patient/Family/Caregiver Education;Gait Training (22106);Therapeuticactivities (67483);Manual therapy (66868) PLAN FOR NEXT VISIT: Will add ankle circles , gait in parallel bars to improve hip and knee control Patient demonstrates good understanding of plan of care and treatment. The above goals and plan of care were discussed and agreed upon by patient/family. SUBJECTIVE: Judi Krause is a 76 year old female seen today for Pt notes that she has occassionalpain in right ankle on top of big toe or top of foot , She was worried about her foot turning out as a tripping hazard, wants to get it fixed Patient Goals: Pt wants to walk without foot turning out as much and not tripping as much. Functional Limitations: rising from a chair;stair negotiation;physical activities Prior Level of Function: Independent with restrictions Independent with the following restrictions: trouble with stairs and getting out of chairs following brain aneurysm (has neuropathy) Relevant History Preferred Language: Finnish Employment: Retired Recreation / Current Exercise: none Home Environment Patient Lives With: Self/Alone Home Type: [place] Entry To Home: (1/2 step to get into house) Intake Information: Prescription present Previous Treatment: (arch supports) Falls Interview: No positive findings with falls interview Pain: Pain Pain Level: 0 (has numbness foot up to knee) Pain Location: Ankle - Right Description: Numbness Frequency: Continuous Post Treatment Pain Post Treatment Pain Level: 0 PROMIS Scales T-scores: mean of general population = 50. 5 points is clinically meaningfully difference Percentiles provide an indication of how the patient's score ranks in relation to the general population. Higher percentile rankings indicate better function/quality of life. 50th percentile is the average of the general population and indicates half of respondents had a worse score. T-scores: mean of general population = 50. 5 points is clinically meaningfully difference Percentiles provide an indication of how the patient's score ranks in relation to the general population. Higher percentile rankings indicate better function/quality of life. 50th percentile is the average of the general population and indicates half of respondents had a worse score. OBJECTIVE MEASURES WITH LEVEL OF FUNCTION: Posture / Alignment R LE Anatomical Alignment Weight-Bearing: R Pes planus L LE Anatomical Alignment Weight-Bearing: L Pes planus Ankle Observations R Ankle Presents with: Ecchymosis Ecchymosis: dorsum of foot by 2nd toe R Ankle Palpation Tenderness: No tenderness noted (decreased sensation to light touch and proprioception) LE AROM R Ankle Dorsiflexion: -13 Degrees (improved with knee flexed, past neutral) R Ankle Plantar Flexion: 40 Degrees R Ankle Inversion: 6 R Ankle Eversion: 7 L Ankle Dorsiflexion: -12 Degrees (improved with knee flexed) L Ankle Plantar Flexion: 40 Degrees L Ankle Inversion: 18 L Ankle Eversion: 10 LE Flexibility Flexibility: Gastrocnemius Flexibility R Gastrocnemius Flexibility: poor passive to -7 LE Strength R Knee Extension (L3): 4+/5 R Ankle Dorsiflexion (L4): 3-/5 R Ankle Plantar Flexion: 3+/5 R Ankle Inversion: 2/5 R Ankle Eversion: 3+/5 Functional Strength Functional Strength: Poor for active control of foot and ankle and LE alignment Gait Weight Bearing Status: FWB Gait: Independent Gait Device: None Gait Deviations: Right Lower Extremity;General Deviations Gait Deviations Right Lower Extremity: Push off during terminal stance decreased;Foot clearance decreased;Heel strike during initial stance decreased General Deviations/Observations: Wide base of support (right LE with ER from hip as well as tibial rotation) Balance Dynamic Standing Balance: Comments (decreased stability for walking and challenged balance) Education: Education Learning Preferences: Demonstration;Explanation;Performance;Printed Materials Barriers: None Learning/educational needs: Home exercise program;Plan of Care Education Provided: Yes, see treatment interventions for education provided Education Provided To: Patient Education Mode/Type: Demonstration;Explanation/Discussion;Literature/Printed Materials;Performance Response to Education/Teach Back: States/Identifies;Return Demonstration TREATMENT: PT Treatment Interventions: Therapeutic Exercise Evaluation Therapeutic Exercise: 1: seated attempts at toe curls with poor flexion activiation of toes 2x10 2: seated with proper knee flexion and hip at nuetral rotations, active eversion / inversion of ankle 2x10 3: seated arch lift with some activiation of mm but difficult 2x10 4: discussed sitting wtih LE hip and knee / foot in neutral Skilled Intervention: Patient was educated in proper exercise technique and purpose for exercises. Skilled judgment was provided in selection of appropriate interventions. Provided written instruction for home exercise program to facilitate proper performance and compliance. Correct performance of therapeutic exercises was facilitated with verbal and visual cuing. Educated patient on rationale for performing exercises in regards to ROM and function . Patient education as noted. Home Exercise Program Assigned: 1: as outlined above Billing * Evaluation Moderate Complexity: 1 Unit Therapeutic Exercise Treatment Minutes: 25 Total Treatment Time Minutes (timed/untimed): 45 [facility] Saab [facility] of Past illness Narrative* Problem Noted Date Resolved Date Insufficiency of right posterior tibial tendon 0 10/31/2021 12/20/2021 Dehydration 05/02/2021 10/15/2021 Urinary tract infection asso ciated with catheterization of urinary tract 05/02/2021 10/15/2021 Gait difficulty 04/09/2021 07/19/2021 General weakness 04/09/2021 07/19/2021 Melena 01/31/2021 02/01/2021 Last Assessment & Plan: 1 BM with some blood on 01/31, was impacted, otherwise normal. H/H stable, HDS Daily CBC, trend UTI (urinary tract infection) 01/31/2021 Last Assessment & Plan: UA and UC positive Bactrim for 3 days- last dose today WBC improving Hyponatremia 01/29/2021 10/15/2021 Last Assessment & Plan: Stabilizing. Na tab decreased to 2g TID Trend BMP daily Delirium 01/24/2021 10/15/2021 Last Assessment & Plan: Seroquel 12.5mg HS Nursing delirium protocol Normalize sleep/wake cycle. Continue melatonin 3mg/HS Leukocytosis 01/23/2021 01/25/2021 Last Assessment & Plan: Likely reactive, WBC: 14.9, afebrile, likely reactive to aneurysm rupture Procal normal, CXR without clear infiltrate -monitor off ABX -trend WBC/temp curve, downtredning Obesity, Class I, BMI 30-34.9 01/23/2021 Last Assessment & Plan: Evaluating and treating per NT recs Elevated lactic acid level 01/23/202101/25 Last Assessment & Plan: Post procedure vs. 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 Continue nimodipine until DC Keep normovolemic. Ambulate in unit. PT/OT/PMR: AR Respiratory insufficiency 01/22/20212020 Last Assessment & Plan: Extubated by anaesthesia prior to arrival Currently tolerating 8L simple mask -supplemental oxygen as needed to maintain SpO2>94%, wean to [place] today -PT/OT/OOB as tolerated Obstructive hydrocephalus 01/22/20212021 Last Assessment & Plan: 01/30 EVD removed Repeat CTH this AM stable. 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 Actinic Damage///Sun-Damaged Skin 08/14/2009 10/21/2014 Solar lentigo 08/14/2009 10/21/2014 Open wound(s) (multiple) of unspecified site(s), without mention of complication 07/04/2008 10/21/2014 Rash and other nonspecific skin eruption 009 10/21/2014 Unspecified disorder of skin and subcutaneous ti ssue 06/22/2008 10/21/2014 Localized superficial swelling, mass, or lump 10/21/2014 Degenerative skin disorder 05/13/200810/21 DERMATOSES NOS///DYSCHROMIA OTHER 05/13/2008 10/21/2014 Other specified dermatoses 05/13/200810/21 Neoplasm of uncertain behavior of skin 9 10/21/2014 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 05/13/2008 10/21/2014 Other seborrheic keratosis 05/13/200810/21 ANGIOMA///NEVUS, NON-NEOPLASTIC 05/13/2008 10/21/2014 NEVUS////BENIGN MAAME SKIN TRUNK 05/13/2008 0 10/21/2014 Benign neoplasm of colon 08/12/2007 015 Unspecified constipation 08/12/2007 015 Nonspecific abnormal finding in stool contents 0 08/12/2007 10/21/2014 Internal hemorrhoids without mention of complica tion 08/12/2007 10/21/2014 Varicose veins of other sites Lumbago 10/21/2014 Degeneration of intervertebral disc, site unspec ified 10/21/2014 Essential hypertension Last Assessment & Plan: SBP <160 M>65 Continue home Atenolol 50 mg daily Lisinopril increased to 20mg daily prn hydralazine/labetalol Dysfunction of eustachian tube 0 10/21/2014 documented as of this encounter (statuses as of 12/20/2021) [facility] History of Past illness Narrative* Problem Noted Date Resolved Date Insufficiency of right posterior tibial tendon 0 10/31/2021 12/20/2021 Dehydration 05/02/2021 10/15/2021 Urinary tract infection asso ciated with catheterization of urinary tract 05/02/2021 10/15/2021 Gait difficulty 04/09/2021 07/19/2021 General weakness 04/09/2021 07/19/2021 Melena 01/31/2021 02/01/2021 Last Assessment & Plan: 1 BM with some blood on 01/31, was impacted, otherwise normal. H/H stable, HDS Daily CBC, trend UTI (urinary tract infection) 01/31/2021 Last Assessment & Plan: UA and UC positive Bactrim for 3 days- last dose today WBC improving Hyponatremia 01/29/2021 10/15/2021 Last Assessment & Plan: Stabilizing. Na tab decreased to 2g TID Trend BMP daily Delirium 01/24/2021 10/15/2021 Last Assessment & Plan: Seroquel 12.5mg HS Nursing delirium protocol Normalize sleep/wake cycle. Continue melatonin 3mg/HS Leukocytosis 01/23/2021 01/25/2021 Last Assessment & Plan: Likely reactive, WBC: 14.9, afebrile, likely reactive to aneurysm rupture Procal normal, CXR without clear infiltrate -monitor off ABX -trend WBC/temp curve, downtredning Obesity, Class I, BMI 30-34.9 01/23/2021 Last Assessment & Plan: Evaluating and treating per NT recs Elevated lactic acid level 01/23/202101/25 Last Assessment & Plan: Post procedure vs. 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 Continue nimodipine until DC Keep normovolemic. Ambulate in unit. PT/OT/PMR: AR Respiratory insufficiency 01/22/20212020 Last Assessment & Plan: Extubated by anaesthesia prior to arrival Currently tolerating 8L simple mask -supplemental oxygen as needed to maintain SpO2>94%, wean to [place] today -PT/OT/OOB as tolerated Obstructive hydrocephalus 01/22/20212021 Last Assessment & Plan: 01/30 EVD removed Repeat CTH this AM stable. 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 Actinic Damage///Sun-Damaged Skin 08/14/2009 10/21/2014 Solar lentigo 08/14/2009 10/21/2014 Open wound(s) (multiple) of unspecified site(s), without mention of complication 07/04/2008 10/21/2014 Rash and other nonspecific skin eruption 009 10/21/2014 Unspecified disorder of skin and subcutaneous ti ssue 06/22/2008 10/21/2014 Localized superficial swelling, mass, or lump 10/21/2014 Degenerative skin disorder 05/13/200810/21 DERMATOSES NOS///DYSCHROMIA OTHER 05/13/2008 10/21/2014 Other specified dermatoses 05/13/200810/21 Neoplasm of uncertain behavior of skin 9 10/21/2014 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 05/13/2008 10/21/2014 Other seborrheic keratosis 05/13/200810/21 ANGIOMA///NEVUS, NON-NEOPLASTIC 05/13/2008 10/21/2014 NEVUS////BENIGN MAAME SKIN TRUNK 05/13/2008 0 10/21/2014 Benign neoplasm of colon 08/12/2007 015 Unspecified constipation 08/12/2007 015 Nonspecific abnormal finding in stool contents 0 08/12/2007 10/21/2014 Internal hemorrhoids without mention of complica tion 08/12/2007 10/21/2014 Varicose veins of other sites Lumbago 10/21/2014 Degeneration of intervertebral disc, site unspec ified 10/21/2014 Essential hypertension 2 Last Assessment & Plan: SBP <160 M>65 Continue home Atenolol 50 mg daily Lisinopril increased to 20mg daily prn hydralazine/labetalol Dysfunction of eustachian tube 0 10/21/2014 documented as of this encounter (statuses as of 12/22/2021) [facility] History of Past illness Narrative* Problem Noted Date Resolved Date Insufficiency of right posterior tibial tendon 0 10/31/2021 12/20/2021 Dehydration 05/02/2021 10/15/2021 Urinary tract infection asso ciated with catheterization of urinary tract 05/02/2021 10/15/2021 Gait difficulty 04/09/2021 07/19/2021 General weakness 04/09/2021 07/19/2021 Melena 01/31/2021 02/01/2021 Last Assessment & Plan: 1 BM with some blood on 01/31, was impacted, otherwise normal. H/H stable, HDS Daily CBC, trend UTI (urinary tract infection) 01/31/2021 Last Assessment & Plan: UA and UC positive Bactrim for 3 days- last dose today WBC improving Hyponatremia 01/29/2021 10/15/2021 Last Assessment & Plan: Stabilizing. Na tab decreased to 2g TID Trend BMP daily Delirium 01/24/2021 10/15/2021 Last Assessment & Plan: Seroquel 12.5mg HS Nursing delirium protocol Normalize sleep/wake cycle. Continue melatonin 3mg/HS Leukocytosis 01/23/2021 01/25/2021 Last Assessment & Plan: Likely reactive, WBC: 14.9, afebrile, likely reactive to aneurysm rupture Procal normal, CXR without clear infiltrate -monitor off ABX -trend WBC/temp curve, downtredning Obesity, Class I, BMI 30-34.9 01/23/2021 Last Assessment & Plan: Evaluating and treating per NT recs Elevated lactic acid level 01/23/202101/25 Last Assessment & Plan: Post procedure vs. 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 Continue nimodipine until DC Keep normovolemic. Ambulate in unit. PT/OT/PMR: AR Respiratory insufficiency 01/22/20212020 Last Assessment & Plan: Extubated by anaesthesia prior to arrival Currently tolerating 8L simple mask -supplemental oxygen as needed to maintain SpO2>94%, wean to [place] today -PT/OT/OOB as tolerated Obstructive hydrocephalus 01/22/20212021 Last Assessment & Plan: 01/30 EVD removed Repeat CTH this AM stable. 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 Actinic Damage///Sun-Damaged Skin 08/14/2009 10/21/2014 Solar lentigo 08/14/2009 10/21/2014 Open wound(s) (multiple) of unspecified site(s), without mention of complication 07/04/2008 10/21/2014 Rash and other nonspecific skin eruption 009 10/21/2014 Unspecified disorder of skin and subcutaneous ti ssue 06/22/2008 10/21/2014 Localized superficial swelling, mass, or lump 10/21/2014 Degenerative skin disorder 05/13/200810/21 DERMATOSES NOS///DYSCHROMIA OTHER 05/13/2008 10/21/2014 Other specified dermatoses 05/13/200810/21 Neoplasm of uncertain behavior of skin 9 10/21/2014 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 05/13/2008 10/21/2014 Other seborrheic keratosis 05/13/200810/21 ANGIOMA///NEVUS, NON-NEOPLASTIC 05/13/2008 10/21/2014 NEVUS////BENIGN MAAME SKIN TRUNK 05/13/2008 0 10/21/2014 Benign neoplasm of colon 08/12/2007 015 Unspecified constipation 08/12/2007 015 Nonspecific abnormal finding in stool contents 0 08/12/2007 10/21/2014 Internal hemorrhoids without mention of complica tion 08/12/2007 10/21/2014 Varicose veins of other sites Lumbago 10/21/2014 Degeneration of intervertebral disc, site unspec ified 10/21/2014 Essential hypertension Last Assessment & Plan: SBP <160 M>65 Continue home Atenolol 50 mg daily Lisinopril increased to 20mg daily prn hydralazine/labetalol Dysfunction of eustachian tube 0 10/21/2014 documented as of this encounter (statuses as of 01/07/2022) [facility] History of Past illness Narrative* Problem Noted Date Resolved Date Insufficiency of right posterior tibial tendon 0 10/31/2021 12/20/2021 Dehydration 05/02/2021 10/15/2021 Urinary tract infection asso ciated with catheterization of urinary tract 05/02/2021 10/15/2021 Gait difficulty 04/09/2021 07/19/2021 General weakness 04/09/2021 07/19/2021 Melena 01/31/2021 02/01/2021 Last Assessment & Plan: 1 BM with some blood on 01/31, was impacted, otherwise normal. H/H stable, HDS Daily CBC, trend UTI (urinary tract infection) 01/31/2021 Last Assessment & Plan: UA and UC positive Bactrim for 3 days- last dose today WBC improving Hyponatremia 01/29/2021 10/15/2021 Last Assessment & Plan: Stabilizing. Na tab decreased to 2g TID Trend BMP daily Delirium 01/24/2021 10/15/2021 Last Assessment & Plan: Seroquel 12.5mg HS Nursing delirium protocol Normalize sleep/wake cycle. Continue melatonin 3mg/HS Leukocytosis 01/23/2021 01/25/2021 Last Assessment & Plan: Likely reactive, WBC: 14.9, afebrile, likely reactive to aneurysm rupture Procal normal, CXR without clear infiltrate -monitor off ABX -trend WBC/temp curve, downtredning Obesity, Class I, BMI 30-34.9 01/23/2021 Last Assessment & Plan: Evaluating and treating per NT recs Elevated lactic acid level 01/23/202101/25 Last Assessment & Plan: Post procedure vs. 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 Continue nimodipine until DC Keep normovolemic. Ambulate in unit. PT/OT/PMR: AR Respiratory insufficiency 01/22/20212020 Last Assessment & Plan: Extubated by anaesthesia prior to arrival Currently tolerating 8L simple mask -supplemental oxygen as needed to maintain SpO2>94%, wean to [place] today -PT/OT/OOB as tolerated Obstructive hydrocephalus 01/22/20212021 Last Assessment & Plan: 01/30 EVD removed Repeat CTH this AM stable. 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 Actinic Damage///Sun-Damaged Skin 08/14/2009 10/21/2014 Solar lentigo 08/14/2009 10/21/2014 Open wound(s) (multiple) of unspecified site(s), without mention of complication 07/04/2008 10/21/2014 Rash and other nonspecific skin eruption 009 10/21/2014 Unspecified disorder of skin and subcutaneous ti ssue 06/22/2008 10/21/2014 Localized superficial swelling, mass, or lump 10/21/2014 Degenerative skin disorder 05/13/200810/21 DERMATOSES NOS///DYSCHROMIA OTHER 05/13/2008 10/21/2014 Other specified dermatoses 05/13/200810/21 Neoplasm of uncertain behavior of skin 9 10/21/2014 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 05/13/2008 10/21/2014 Other seborrheic keratosis 05/13/200810/21 ANGIOMA///NEVUS, NON-NEOPLASTIC 05/13/2008 10/21/2014 NEVUS////BENIGN MAAME SKIN TRUNK 05/13/2008 0 10/21/2014 Benign neoplasm of colon 08/12/2007 015 Unspecified constipation 08/12/2007 015 Nonspecific abnormal finding in stool contents 0 08/12/2007 10/21/2014 Internal hemorrhoids without mention of complica tion 08/12/2007 10/21/2014 Varicose veins of other sites Lumbago 10/21/2014 Degeneration of intervertebral disc, site unspec ified 10/21/2014 Essential hypertension 2 Last Assessment & Plan: SBP <160 M>65 Continue home Atenolol 50 mg daily Lisinopril increased to 20mg daily prn hydralazine/labetalol Dysfunction of eustachian tube 0 10/21/2014 documented as of this encounter (statuses as of 01/14/2022) [facility] History of Past illness Narrative* Problem Noted Date Resolved Date Insufficiency of right posterior tibial tendon 0 10/31/2021 12/20/2021 Dehydration 05/02/2021 10/15/2021 Urinary tract infection asso ciated with catheterization of urinary tract 05/02/2021 10/15/2021 Gait difficulty 04/09/2021 07/19/2021 General weakness 04/09/2021 07/19/2021 Melena 01/31/2021 02/01/2021 Last Assessment & Plan: 1 BM with some blood on 01/31, was impacted, otherwise normal. H/H stable, HDS Daily CBC, trend UTI (urinary tract infection) 01/31/2021 Last Assessment & Plan: UA and UC positive Bactrim for 3 days- last dose today WBC improving Hyponatremia 01/29/2021 10/15/2021 Last Assessment & Plan: Stabilizing. Na tab decreased to 2g TID Trend BMP daily Delirium 01/24/2021 10/15/2021 Last Assessment & Plan: Seroquel 12.5mg HS Nursing delirium protocol Normalize sleep/wake cycle. Continue melatonin 3mg/HS Leukocytosis 01/23/2021 01/25/2021 Last Assessment & Plan: Likely reactive, WBC: 14.9, afebrile, likely reactive to aneurysm rupture Procal normal, CXR without clear infiltrate -monitor off ABX -trend WBC/temp curve, downtredning Obesity, Class I, BMI 30-34.9 01/23/2021 Last Assessment & Plan: Evaluating and treating per NT recs Elevated lactic acid level 01/23/202101/25 Last Assessment & Plan: Post procedure vs. 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 Continue nimodipine until DC Keep normovolemic. Ambulate in unit. PT/OT/PMR: AR Respiratory insufficiency 01/22/20212020 Last Assessment & Plan: Extubated by anaesthesia prior to arrival Currently tolerating 8L simple mask -supplemental oxygen as needed to maintain SpO2>94%, wean to [place] today -PT/OT/OOB as tolerated Obstructive hydrocephalus 01/22/20212021 Last Assessment & Plan: 01/30 EVD removed Repeat CTH this AM stable. 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 Actinic Damage///Sun-Damaged Skin 08/14/2009 10/21/2014 Solar lentigo 08/14/2009 10/21/2014 Open wound(s) (multiple) of unspecified site(s), without mention of complication 07/04/2008 10/21/2014 Rash and other nonspecific skin eruption 009 10/21/2014 Unspecified disorder of skin and subcutaneous ti ssue 06/22/2008 10/21/2014 Localized superficial swelling, mass, or lump 10/21/2014 Degenerative skin disorder 05/13/200810/21 DERMATOSES NOS///DYSCHROMIA OTHER 05/13/2008 10/21/2014 Other specified dermatoses 05/13/200810/21 Neoplasm of uncertain behavior of skin 9 10/21/2014 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 05/13/2008 10/21/2014 Other seborrheic keratosis 05/13/200810/21 ANGIOMA///NEVUS, NON-NEOPLASTIC 05/13/2008 10/21/2014 NEVUS////BENIGN MAAME SKIN TRUNK 05/13/2008 0 10/21/2014 Benign neoplasm of colon 08/12/2007 015 Unspecified constipation 08/12/2007 015 Nonspecific abnormal finding in stool contents 0 08/12/2007 10/21/2014 Internal hemorrhoids without mention of complica tion 08/12/2007 10/21/2014 Varicose veins of other sites Lumbago 10/21/2014 Degeneration of intervertebral disc, site unspec ified 10/21/2014 Essential hypertension Last Assessment & Plan: SBP <160 M>65 Continue home Atenolol 50 mg daily Lisinopril increased to 20mg daily prn hydralazine/labetalol Dysfunction of eustachian tube 0 10/21/2014 documented as of this encounter (statuses as of 03/01/2022) [facility]07[facility] History of Past illness Narrative* Problem Noted Date Resolved Date Insufficiency of right posterior tibial tendon 0 10/31/2021 12/20/2021 Dehydration 05/02/2021 10/15/2021 Urinary tract infection asso ciated with catheterization of urinary tract 05/02/2021 10/15/2021 Gait difficulty 04/09/2021 07/19/2021 General weakness 04/09/2021 07/19/2021 Melena 01/31/2021 02/01/2021 Last Assessment & Plan: 1 BM with some blood on 01/31, was impacted, otherwise normal. H/H stable, HDS Daily CBC, trend UTI (urinary tract infection) 01/31/2021 Last Assessment & Plan: UA and UC positive Bactrim for 3 days- last dose today WBC improving Hyponatremia 01/29/2021 10/15/2021 Last Assessment & Plan: Stabilizing. Na tab decreased to 2g TID Trend BMP daily Delirium 01/24/2021 10/15/2021 Last Assessment & Plan: Seroquel 12.5mg HS Nursing delirium protocol Normalize sleep/wake cycle. Continue melatonin 3mg/HS Leukocytosis 01/23/2021 01/25/2021 Last Assessment & Plan: Likely reactive, WBC: 14.9, afebrile, likely reactive to aneurysm rupture Procal normal, CXR without clear infiltrate -monitor off ABX -trend WBC/temp curve, downtredning Obesity, Class I, BMI 30-34.9 01/23/2021 Last Assessment & Plan: Evaluating and treating per NT recs Elevated lactic acid level 01/23/202101/25 Last Assessment & Plan: Post procedure vs. 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 Continue nimodipine until DC Keep normovolemic. Ambulate in unit. PT/OT/PMR: AR Respiratory insufficiency 01/22/20212020 Last Assessment & Plan: Extubated by anaesthesia prior to arrival Currently tolerating 8L simple mask -supplemental oxygen as needed to maintain SpO2>94%, wean to [place] today -PT/OT/OOB as tolerated Obstructive hydrocephalus 01/22/20212021 Last Assessment & Plan: 01/30 EVD removed Repeat CTH this AM stable. 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 Actinic Damage///Sun-Damaged Skin 08/14/2009 10/21/2014 Solar lentigo 08/14/2009 10/21/2014 Open wound(s) (multiple) of unspecified site(s), without mention of complication 07/04/2008 10/21/2014 Rash and other nonspecific skin eruption 009 10/21/2014 Unspecified disorder of skin and subcutaneous ti ssue 06/22/2008 10/21/2014 Localized superficial swelling, mass, or lump 10/21/2014 Degenerative skin disorder 05/13/200810/21 DERMATOSES NOS///DYSCHROMIA OTHER 05/13/2008 10/21/2014 Other specified dermatoses 05/13/200810/21 Neoplasm of uncertain behavior of skin 9 10/21/2014 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 05/13/2008 10/21/2014 Other seborrheic keratosis 05/13/200810/21 ANGIOMA///NEVUS, NON-NEOPLASTIC 05/13/2008 10/21/2014 NEVUS////BENIGN MAAME SKIN TRUNK 05/13/2008 0 10/21/2014 Benign neoplasm of colon 08/12/2007 015 Unspecified constipation 08/12/2007 015 Nonspecific abnormal finding in stool contents 0 08/12/2007 10/21/2014 Internal hemorrhoids without mention of complica tion 08/12/2007 10/21/2014 Varicose veins of other sites Lumbago 10/21/2014 Degeneration of intervertebral disc, site unspec ified 10/21/2014 Essential hypertension 2 Last Assessment & Plan: SBP <160 M>65 Continue home Atenolol 50 mg daily Lisinopril increased to 20mg daily prn hydralazine/labetalol Dysfunction of eustachian tube 0 10/21/2014 documented as of this encounter (statuses as of 03/03/2022) [facility]07[facility] History of Past illness Narrative* Problem Noted Date Resolved Date Insufficiency of right posterior tibial tendon 0 10/31/2021 12/20/2021 Dehydration 05/02/2021 10/15/2021 Urinary tract infection asso ciated with catheterization of urinary tract 05/02/2021 10/15/2021 Gait difficulty 04/09/2021 07/19/2021 General weakness 04/09/2021 07/19/2021 Melena 01/31/2021 02/01/2021 Last Assessment & Plan: 1 BM with some blood on 01/31, was impacted, otherwise normal. H/H stable, HDS Daily CBC, trend UTI (urinary tract infection) 01/31/2021 Last Assessment & Plan: UA and UC positive Bactrim for 3 days- last dose today WBC improving Hyponatremia 01/29/2021 10/15/2021 Last Assessment & Plan: Stabilizing. Na tab decreased to 2g TID Trend BMP daily Delirium 01/24/2021 10/15/2021 Last Assessment & Plan: Seroquel 12.5mg HS Nursing delirium protocol Normalize sleep/wake cycle. Continue melatonin 3mg/HS Leukocytosis 01/23/2021 01/25/2021 Last Assessment & Plan: Likely reactive, WBC: 14.9, afebrile, likely reactive to aneurysm rupture Procal normal, CXR without clear infiltrate -monitor off ABX -trend WBC/temp curve, downtredning Obesity, Class I, BMI 30-34.9 01/23/2021 Last Assessment & Plan: Evaluating and treating per NT recs Elevated lactic acid level 01/23/202101/25 Last Assessment & Plan: Post procedure vs. 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 Continue nimodipine until DC Keep normovolemic. Ambulate in unit. PT/OT/PMR: AR Respiratory insufficiency 01/22/20212020 Last Assessment & Plan: Extubated by anaesthesia prior to arrival Currently tolerating 8L simple mask -supplemental oxygen as needed to maintain SpO2>94%, wean to [place] today -PT/OT/OOB as tolerated Obstructive hydrocephalus 01/22/20212021 Last Assessment & Plan: 01/30 EVD removed Repeat CTH this AM stable. 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 Actinic Damage///Sun-Damaged Skin 08/14/2009 10/21/2014 Solar lentigo 08/14/2009 10/21/2014 Open wound(s) (multiple) of unspecified site(s), without mention of complication 07/04/2008 10/21/2014 Rash and other nonspecific skin eruption 009 10/21/2014 Unspecified disorder of skin and subcutaneous ti ssue 06/22/2008 10/21/2014 Localized superficial swelling, mass, or lump 10/21/2014 Degenerative skin disorder 05/13/200810/21 DERMATOSES NOS///DYSCHROMIA OTHER 05/13/2008 10/21/2014 Other specified dermatoses 05/13/200810/21 Neoplasm of uncertain behavior of skin 9 10/21/2014 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 05/13/2008 10/21/2014 Other seborrheic keratosis 05/13/200810/21 ANGIOMA///NEVUS, NON-NEOPLASTIC 05/13/2008 10/21/2014 NEVUS////BENIGN MAAME SKIN TRUNK 05/13/2008 0 10/21/2014 Benign neoplasm of colon 08/12/2007 015 Unspecified constipation 08/12/2007 015 Nonspecific abnormal finding in stool contents 0 08/12/2007 10/21/2014 Internal hemorrhoids without mention of complica tion 08/12/2007 10/21/2014 Varicose veins of other sites Lumbago 10/21/2014 Degeneration of intervertebral disc, site unspec ified 10/21/2014 Essential hypertension Last Assessment & Plan: SBP <160 M>65 Continue home Atenolol 50 mg daily Lisinopril increased to 20mg daily prn hydralazine/labetalol Dysfunction of eustachian tube 0 10/21/2014 documented as of this encounter (statuses as of 03/28/2022) [facility]07-06-2022 History of Past illness Narrative* Problem Noted Date Resolved Date Insufficiency of right posterior tibial tendon 0 10/31/2021 12/20/2021 Dehydration 05/02/2021 10/15/2021 Urinary tract infection asso ciated with catheterization of urinary tract 05/02/2021 10/15/2021 Gait difficulty 04/09/2021 07/19/2021 General weakness 04/09/2021 07/19/2021 Melena 01/31/2021 02/01/2021 Last Assessment & Plan: 1 BM with some blood on 01/31, was impacted, otherwise normal. H/H stable, HDS Daily CBC, trend UTI (urinary tract infection) 01/31/2021 Last Assessment & Plan: UA and UC positive Bactrim for 3 days- last dose today WBC improving Hyponatremia 01/29/2021 10/15/2021 Last Assessment & Plan: Stabilizing. Na tab decreased to 2g TID Trend BMP daily Delirium 01/24/2021 10/15/2021 Last Assessment & Plan: Seroquel 12.5mg HS Nursing delirium protocol Normalize sleep/wake cycle. Continue melatonin 3mg/HS Leukocytosis 01/23/2021 01/25/2021 Last Assessment & Plan: Likely reactive, WBC: 14.9, afebrile, likely reactive to aneurysm rupture Procal normal, CXR without clear infiltrate -monitor off ABX -trend WBC/temp curve, downtredning Obesity, Class I, BMI 30-34.9 01/23/2021 Last Assessment & Plan: Evaluating and treating per NT recs Elevated lactic acid level 01/23/202101/25 Last Assessment & Plan: Post procedure vs. 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 Continue nimodipine until DC Keep normovolemic. Ambulate in unit. PT/OT/PMR: AR Respiratory insufficiency 01/22/20212020 Last Assessment & Plan: Extubated by anaesthesia prior to arrival Currently tolerating 8L simple mask -supplemental oxygen as needed to maintain SpO2>94%, wean to [place] today -PT/OT/OOB as tolerated Obstructive hydrocephalus 01/22/20212021 Last Assessment & Plan: 01/30 EVD removed Repeat CTH this AM stable. 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 Actinic Damage///Sun-Damaged Skin 08/14/2009 10/21/2014 Solar lentigo 08/14/2009 10/21/2014 Open wound(s) (multiple) of unspecified site(s), without mention of complication 07/04/2008 10/21/2014 Rash and other nonspecific skin eruption 009 10/21/2014 Unspecified disorder of skin and subcutaneous ti ssue 06/22/2008 10/21/2014 Localized superficial swelling, mass, or lump 10/21/2014 Degenerative skin disorder 05/13/200810/21 DERMATOSES NOS///DYSCHROMIA OTHER 05/13/2008 10/21/2014 Other specified dermatoses 05/13/200810/21 Neoplasm of uncertain behavior of skin 9 10/21/2014 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 05/13/2008 10/21/2014 Other seborrheic keratosis 05/13/200810/21 ANGIOMA///NEVUS, NON-NEOPLASTIC 05/13/2008 10/21/2014 NEVUS////BENIGN MAAME SKIN TRUNK 05/13/2008 0 10/21/2014 Benign neoplasm of colon 08/12/2007 015 Unspecified constipation 08/12/2007 015 Nonspecific abnormal finding in stool contents 0 08/12/2007 10/21/2014 Internal hemorrhoids without mention of complica tion 08/12/2007 10/21/2014 Varicose veins of other sites Lumbago 10/21/2014 Degeneration of intervertebral disc, site unspec ified 10/21/2014 Essential hypertension 2 Last Assessment & Plan: SBP <160 M>65 Continue home Atenolol 50 mg daily Lisinopril increased to 20mg daily prn hydralazine/labetalol Dysfunction of eustachian tube 0 10/21/2014 documented as of this encounter (statuses as of 04/01/2022) [facility]07-06-2022 History of Past illness Narrative* Problem Noted Date Resolved Date Insufficiency of right posterior tibial tendon 0 10/31/2021 12/20/2021 Dehydration 05/02/2021 10/15/2021 Urinary tract infection asso ciated with catheterization of urinary tract 05/02/2021 10/15/2021 Gait difficulty 04/09/2021 07/19/2021 General weakness 04/09/2021 07/19/2021 Melena 01/31/2021 02/01/2021 Last Assessment & Plan: 1 BM with some blood on 01/31, was impacted, otherwise normal. H/H stable, HDS Daily CBC, trend UTI (urinary tract infection) 01/31/2021 Last Assessment & Plan: UA and UC positive Bactrim for 3 days- last dose today WBC improving Hyponatremia 01/29/2021 10/15/2021 Last Assessment & Plan: Stabilizing. Na tab decreased to 2g TID Trend BMP daily Delirium 01/24/2021 10/15/2021 Last Assessment & Plan: Seroquel 12.5mg HS Nursing delirium protocol Normalize sleep/wake cycle. Continue melatonin 3mg/HS Leukocytosis 01/23/2021 01/25/2021 Last Assessment & Plan: Likely reactive, WBC: 14.9, afebrile, likely reactive to aneurysm rupture Procal normal, CXR without clear infiltrate -monitor off ABX -trend WBC/temp curve, downtredning Obesity, Class I, BMI 30-34.9 01/23/2021 Last Assessment & Plan: Evaluating and treating per NT recs Elevated lactic acid level 01/23/202101/25 Last Assessment & Plan: Post procedure vs. 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 Continue nimodipine until DC Keep normovolemic. Ambulate in unit. PT/OT/PMR: AR Respiratory insufficiency 01/22/20212020 Last Assessment & Plan: Extubated by anaesthesia prior to arrival Currently tolerating 8L simple mask -supplemental oxygen as needed to maintain SpO2>94%, wean to [place] today -PT/OT/OOB as tolerated Obstructive hydrocephalus 01/22/20212021 Last Assessment & Plan: 01/30 EVD removed Repeat CTH this AM stable. 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 Actinic Damage///Sun-Damaged Skin 08/14/2009 10/21/2014 Solar lentigo 08/14/2009 10/21/2014 Open wound(s) (multiple) of unspecified site(s), without mention of complication 07/04/2008 10/21/2014 Rash and other nonspecific skin eruption 009 10/21/2014 Unspecified disorder of skin and subcutaneous ti ssue 06/22/2008 10/21/2014 Localized superficial swelling, mass, or lump 10/21/2014 Degenerative skin disorder 05/13/200810/21 DERMATOSES NOS///DYSCHROMIA OTHER 05/13/2008 10/21/2014 Other specified dermatoses 05/13/200810/21 Neoplasm of uncertain behavior of skin 9 10/21/2014 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 05/13/2008 10/21/2014 Other seborrheic keratosis 05/13/200810/21 ANGIOMA///NEVUS, NON-NEOPLASTIC 05/13/2008 10/21/2014 NEVUS////BENIGN MAAME SKIN TRUNK 05/13/2008 0 10/21/2014 Benign neoplasm of colon 08/12/2007 015 Unspecified constipation 08/12/2007 015 Nonspecific abnormal finding in stool contents 0 08/12/2007 10/21/2014 Internal hemorrhoids without mention of complica tion 08/12/2007 10/21/2014 Varicose veins of other sites Lumbago 10/21/2014 Degeneration of intervertebral disc, site unspec ified 10/21/2014 Essential hypertension Last Assessment & Plan: SBP <160 M>65 Continue home Atenolol 50 mg daily Lisinopril increased to 20mg daily prn hydralazine/labetalol Dysfunction of eustachian tube 0 10/21/2014 documented as of this encounter (statuses as of 04/19/2022) [facility]07-06-2022 History of Past illness Narrative* Problem Noted Date Resolved Date Insufficiency of right posterior tibial tendon 0 10/31/2021 12/20/2021 Dehydration 05/02/2021 10/15/2021 Urinary tract infection asso ciated with catheterization of urinary tract 05/02/2021 10/15/2021 Gait difficulty 04/09/2021 07/19/2021 General weakness 04/09/2021 07/19/2021 Melena 01/31/2021 02/01/2021 Last Assessment & Plan: 1 BM with some blood on 01/31, was impacted, otherwise normal. H/H stable, HDS Daily CBC, trend UTI (urinary tract infection) 01/31/2021 Last Assessment & Plan: UA and UC positive Bactrim for 3 days- last dose today WBC improving Hyponatremia 01/29/2021 10/15/2021 Last Assessment & Plan: Stabilizing. Na tab decreased to 2g TID Trend BMP daily Delirium 01/24/2021 10/15/2021 Last Assessment & Plan: Seroquel 12.5mg HS Nursing delirium protocol Normalize sleep/wake cycle. Continue melatonin 3mg/HS Leukocytosis 01/23/2021 01/25/2021 Last Assessment & Plan: Likely reactive, WBC: 14.9, afebrile, likely reactive to aneurysm rupture Procal normal, CXR without clear infiltrate -monitor off ABX -trend WBC/temp curve, downtredning Obesity, Class I, BMI 30-34.9 01/23/2021 Last Assessment & Plan: Evaluating and treating per NT recs Elevated lactic acid level 01/23/202101/25 Last Assessment & Plan: Post procedure vs. 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 Continue nimodipine until DC Keep normovolemic. Ambulate in unit. PT/OT/PMR: AR Respiratory insufficiency 01/22/20212020 Last Assessment & Plan: Extubated by anaesthesia prior to arrival Currently tolerating 8L simple mask -supplemental oxygen as needed to maintain SpO2>94%, wean to [place] today -PT/OT/OOB as tolerated Obstructive hydrocephalus 01/22/20212021 Last Assessment & Plan: 01/30 EVD removed Repeat CTH this AM stable. 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 Actinic Damage///Sun-Damaged Skin 08/14/2009 10/21/2014 Solar lentigo 08/14/2009 10/21/2014 Open wound(s) (multiple) of unspecified site(s), without mention of complication 07/04/2008 10/21/2014 Rash and other nonspecific skin eruption 009 10/21/2014 Unspecified disorder of skin and subcutaneous ti ssue 06/22/2008 10/21/2014 Localized superficial swelling, mass, or lump 10/21/2014 Degenerative skin disorder 05/13/200810/21 DERMATOSES NOS///DYSCHROMIA OTHER 05/13/2008 10/21/2014 Other specified dermatoses 05/13/200810/21 Neoplasm of uncertain behavior of skin 9 10/21/2014 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 05/13/2008 10/21/2014 Other seborrheic keratosis 05/13/200810/21 ANGIOMA///NEVUS, NON-NEOPLASTIC 05/13/2008 10/21/2014 NEVUS////BENIGN MAAME SKIN TRUNK 05/13/2008 0 10/21/2014 Benign neoplasm of colon 08/12/2007 015 Unspecified constipation 08/12/2007 015 Nonspecific abnormal finding in stool contents 0 08/12/2007 10/21/2014 Internal hemorrhoids without mention of complica tion 08/12/2007 10/21/2014 Varicose veins of other sites Lumbago 10/21/2014 Degeneration of intervertebral disc, site unspec ified 10/21/2014 Essential hypertension 2 Last Assessment & Plan: SBP <160 M>65 Continue home Atenolol 50 mg daily Lisinopril increased to 20mg daily prn hydralazine/labetalol Dysfunction of eustachian tube 0 10/21/2014 documented as of this encounter (statuses as of 05/01/2022) [facility]07-06-2022 History of Past illness Narrative* Problem Noted Date Resolved Date Insufficiency of right posterior tibial tendon 0 10/31/2021 12/20/2021 Dehydration 05/02/2021 10/15/2021 Urinary tract infection asso ciated with catheterization of urinary tract 05/02/2021 10/15/2021 Gait difficulty 04/09/2021 07/19/2021 General weakness 04/09/2021 07/19/2021 Melena 01/31/2021 02/01/2021 Last Assessment & Plan: 1 BM with some blood on 01/31, was impacted, otherwise normal. H/H stable, HDS Daily CBC, trend UTI (urinary tract infection) 01/31/2021 Last Assessment & Plan: UA and UC positive Bactrim for 3 days- last dose today WBC improving Hyponatremia 01/29/2021 10/15/2021 Last Assessment & Plan: Stabilizing. Na tab decreased to 2g TID Trend BMP daily Delirium 01/24/2021 10/15/2021 Last Assessment & Plan: Seroquel 12.5mg HS Nursing delirium protocol Normalize sleep/wake cycle. Continue melatonin 3mg/HS Leukocytosis 01/23/2021 01/25/2021 Last Assessment & Plan: Likely reactive, WBC: 14.9, afebrile, likely reactive to aneurysm rupture Procal normal, CXR without clear infiltrate -monitor off ABX -trend WBC/temp curve, downtredning Obesity, Class I, BMI 30-34.9 01/23/2021 Last Assessment & Plan: Evaluating and treating per NT recs Elevated lactic acid level 01/23/202101/25 Last Assessment & Plan: Post procedure vs. 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 Continue nimodipine until DC Keep normovolemic. Ambulate in unit. PT/OT/PMR: AR Respiratory insufficiency 01/22/20212020 Last Assessment & Plan: Extubated by anaesthesia prior to arrival Currently tolerating 8L simple mask -supplemental oxygen as needed to maintain SpO2>94%, wean to [place] today -PT/OT/OOB as tolerated Obstructive hydrocephalus 01/22/20212021 Last Assessment & Plan: 01/30 EVD removed Repeat CTH this AM stable. 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 Actinic Damage///Sun-Damaged Skin 08/14/2009 10/21/2014 Solar lentigo 08/14/2009 10/21/2014 Open wound(s) (multiple) of unspecified site(s), without mention of complication 07/04/2008 10/21/2014 Rash and other nonspecific skin eruption 009 10/21/2014 Unspecified disorder of skin and subcutaneous ti ssue 06/22/2008 10/21/2014 Localized superficial swelling, mass, or lump 10/21/2014 Degenerative skin disorder 05/13/200810/21 DERMATOSES NOS///DYSCHROMIA OTHER 05/13/2008 10/21/2014 Other specified dermatoses 05/13/200810/21 Neoplasm of uncertain behavior of skin 9 10/21/2014 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 05/13/2008 10/21/2014 Other seborrheic keratosis 05/13/200810/21 ANGIOMA///NEVUS, NON-NEOPLASTIC 05/13/2008 10/21/2014 NEVUS////BENIGN MAAME SKIN TRUNK 05/13/2008 0 10/21/2014 Benign neoplasm of colon 08/12/2007 015 Unspecified constipation 08/12/2007 015 Nonspecific abnormal finding in stool contents 0 08/12/2007 10/21/2014 Internal hemorrhoids without mention of complica tion 08/12/2007 10/21/2014 Varicose veins of other sites Lumbago 10/21/2014 Degeneration of intervertebral disc, site unspec ified 10/21/2014 Essential hypertension Last Assessment & Plan: SBP <160 M>65 Continue home Atenolol 50 mg daily Lisinopril increased to 20mg daily prn hydralazine/labetalol Dysfunction of eustachian tube 0 10/21/2014 documented as of this encounter (statuses as of 05/24/2022) [facility]07-[facility]-2022 History of Past illness Narrative* Problem Noted Date Resolved Date Insufficiency of right posterior tibial tendon 0 10/31/2021 12/20/2021 Dehydration 05/02/2021 10/15/2021 Urinary tract infection asso ciated with catheterization of urinary tract 05/02/2021 10/15/2021 Gait difficulty 04/09/2021 07/19/2021 General weakness 04/09/2021 07/19/2021 Melena 01/31/2021 02/01/2021 Last Assessment & Plan: 1 BM with some blood on 01/31, was impacted, otherwise normal. H/H stable, HDS Daily CBC, trend UTI (urinary tract infection) 01/31/2021 Last Assessment & Plan: UA and UC positive Bactrim for 3 days- last dose today WBC improving Hyponatremia 01/29/2021 10/15/2021 Last Assessment & Plan: Stabilizing. Na tab decreased to 2g TID Trend BMP daily Delirium 01/24/2021 10/15/2021 Last Assessment & Plan: Seroquel 12.5mg HS Nursing delirium protocol Normalize sleep/wake cycle. Continue melatonin 3mg/HS Leukocytosis 01/23/2021 01/25/2021 Last Assessment & Plan: Likely reactive, WBC: 14.9, afebrile, likely reactive to aneurysm rupture Procal normal, CXR without clear infiltrate -monitor off ABX -trend WBC/temp curve, downtredning Obesity, Class I, BMI 30-34.9 01/23/2021 Last Assessment & Plan: Evaluating and treating per NT recs Elevated lactic acid level 01/23/202101/25 Last Assessment & Plan: Post procedure vs. 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 Continue nimodipine until DC Keep normovolemic. Ambulate in unit. PT/OT/PMR: AR Respiratory insufficiency 01/22/20212020 Last Assessment & Plan: Extubated by anaesthesia prior to arrival Currently tolerating 8L simple mask -supplemental oxygen as needed to maintain SpO2>94%, wean to [place] today -PT/OT/OOB as tolerated Obstructive hydrocephalus 01/22/20212021 Last Assessment & Plan: 01/30 EVD removed Repeat CTH this AM stable. 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 Actinic Damage///Sun-Damaged Skin 08/14/2009 10/21/2014 Solar lentigo 08/14/2009 10/21/2014 Open wound(s) (multiple) of unspecified site(s), without mention of complication 07/04/2008 10/21/2014 Rash and other nonspecific skin eruption 009 10/21/2014 Unspecified disorder of skin and subcutaneous ti ssue 06/22/2008 10/21/2014 Localized superficial swelling, mass, or lump 10/21/2014 Degenerative skin disorder 05/13/200810/21 DERMATOSES NOS///DYSCHROMIA OTHER 05/13/2008 10/21/2014 Other specified dermatoses 05/13/200810/21 Neoplasm of uncertain behavior of skin 9 10/21/2014 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 05/13/2008 10/21/2014 Other seborrheic keratosis 05/13/200810/21 ANGIOMA///NEVUS, NON-NEOPLASTIC 05/13/2008 10/21/2014 NEVUS////BENIGN MAAME SKIN TRUNK 05/13/2008 0 10/21/2014 Benign neoplasm of colon 08/12/2007 015 Unspecified constipation 08/12/2007 015 Nonspecific abnormal finding in stool contents 0 08/12/2007 10/21/2014 Internal hemorrhoids without mention of complica tion 08/12/2007 10/21/2014 Varicose veins of other sites Lumbago 10/21/2014 Degeneration of intervertebral disc, site unspec ified 10/21/2014 Essential hypertension 2 Last Assessment & Plan: SBP <160 M>65 Continue home Atenolol 50 mg daily Lisinopril increased to 20mg daily prn hydralazine/labetalol Dysfunction of eustachian tube 0 10/21/2014 documented as of this encounter (statuses as of 06/28/2022) [facility]07-[facility]-2022 History of Past illness Narrative* Problem Noted Date Resolved Date Insufficiency of right posterior tibial tendon 0 10/31/2021 12/20/2021 Dehydration 05/02/2021 10/15/2021 Urinary tract infection asso ciated with catheterization of urinary tract 05/02/2021 10/15/2021 Gait difficulty 04/09/2021 07/19/2021 General weakness 04/09/2021 07/19/2021 Melena 01/31/2021 02/01/2021 Last Assessment & Plan: 1 BM with some blood on 01/31, was impacted, otherwise normal. H/H stable, HDS Daily CBC, trend UTI (urinary tract infection) 01/31/2021 Last Assessment & Plan: UA and UC positive Bactrim for 3 days- last dose today WBC improving Hyponatremia 01/29/2021 10/15/2021 Last Assessment & Plan: Stabilizing. Na tab decreased to 2g TID Trend BMP daily Delirium 01/24/2021 10/15/2021 Last Assessment & Plan: Seroquel 12.5mg HS Nursing delirium protocol Normalize sleep/wake cycle. Continue melatonin 3mg/HS Leukocytosis 01/23/2021 01/25/2021 Last Assessment & Plan: Likely reactive, WBC: 14.9, afebrile, likely reactive to aneurysm rupture Procal normal, CXR without clear infiltrate -monitor off ABX -trend WBC/temp curve, downtredning Obesity, Class I, BMI 30-34.9 01/23/2021 Last Assessment & Plan: Evaluating and treating per NT recs Elevated lactic acid level 01/23/202101/251 Last Assessment & Plan: Post procedure vs. 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 Continue nimodipine until DC Keep normovolemic. Ambulate in unit. PT/OT/PMR: AR Respiratory insufficiency 01/22/20212020 Last Assessment & Plan: Extubated by anaesthesia prior to arrival Currently tolerating 8L simple mask -supplemental oxygen as needed to maintain SpO2>94%, wean to [place] today -PT/OT/OOB as tolerated Obstructive hydrocephalus 01/22/20212021 Last Assessment & Plan: 01/30 EVD removed Repeat CTH this AM stable. 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 Actinic Damage///Sun-Damaged Skin 08/14/2009 10/21/2014 Solar lentigo 08/14/2009 10/21/2014 Open wound(s) (multiple) of unspecified site(s), without mention of complication 07/04/2008 10/21/2014 Rash and other nonspecific skin eruption 009 10/21/2014 Unspecified disorder of skin and subcutaneous ti ssue 06/22/2008 10/21/2014 Localized superficial swelling, mass, or lump 10/21/2014 Degenerative skin disorder 05/13/200810/21 DERMATOSES NOS///DYSCHROMIA OTHER 05/13/2008 10/21/2014 Other specified dermatoses 05/13/200810/21 Neoplasm of uncertain behavior of skin 9 10/21/2014 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 05/13/2008 10/21/2014 Other seborrheic keratosis 05/13/200810/21 ANGIOMA///NEVUS, NON-NEOPLASTIC 05/13/2008 10/21/2014 NEVUS////BENIGN MAAME SKIN TRUNK 05/13/2008 0 10/21/2014 Benign neoplasm of colon 08/12/2007 015 Unspecified constipation 08/12/2007 015 Nonspecific abnormal finding in stool contents 0 08/12/2007 10/21/2014 Internal hemorrhoids without mention of complica tion 08/12/2007 10/21/2014 Varicose veins of other sites Lumbago 10/21/2014 Degeneration of intervertebral disc, site unspec ified 10/21/2014 Essential hypertension Last Assessment & Plan: SBP <160 M>65 Continue home Atenolol 50 mg daily Lisinopril increased to 20mg daily prn hydralazine/labetalol Dysfunction of eustachian tube 0 10/21/2014 documented as of this encounter (statuses as of 07/26/2022) [facility]07-06-2022 History of Past illness Narrative* Problem Noted Date Resolved Date Insufficiency of right posterior tibial tendon 0 10/31/2021 12/20/2021 Dehydration 05/02/2021 10/15/2021 Urinary tract infection asso ciated with catheterization of urinary tract 05/02/2021 10/15/2021 Gait difficulty 04/09/2021 07/19/2021 General weakness 04/09/2021 07/19/2021 Melena 01/31/2021 02/01/2021 Last Assessment & Plan: 1 BM with some blood on 01/31, was impacted, otherwise normal. H/H stable, HDS Daily CBC, trend UTI (urinary tract infection) 01/31/2021 Last Assessment & Plan: UA and UC positive Bactrim for 3 days- last dose today WBC improving Hyponatremia 01/29/2021 10/15/2021 Last Assessment & Plan: Stabilizing. Na tab decreased to 2g TID Trend BMP daily Delirium 01/24/2021 10/15/2021 Last Assessment & Plan: Seroquel 12.5mg HS Nursing delirium protocol Normalize sleep/wake cycle. Continue melatonin 3mg/HS Leukocytosis 01/23/2021 01/25/2021 Last Assessment & Plan: Likely reactive, WBC: 14.9, afebrile, likely reactive to aneurysm rupture Procal normal, CXR without clear infiltrate -monitor off ABX -trend WBC/temp curve, downtredning Obesity, Class I, BMI 30-34.9 01/23/2021 Last Assessment & Plan: Evaluating and treating per NT recs Elevated lactic acid level 01/23/202101/25 Last Assessment & Plan: Post procedure vs. 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 Continue nimodipine until DC Keep normovolemic. Ambulate in unit. PT/OT/PMR: AR Respiratory insufficiency 01/22/20212020 Last Assessment & Plan: Extubated by anaesthesia prior to arrival Currently tolerating 8L simple mask -supplemental oxygen as needed to maintain SpO2>94%, wean to [place] today -PT/OT/OOB as tolerated Obstructive hydrocephalus 01/22/20212021 Last Assessment & Plan: 01/30 EVD removed Repeat CTH this AM stable. 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 Actinic Damage///Sun-Damaged Skin 08/14/2009 10/21/2014 Solar lentigo 08/14/2009 10/21/2014 Open wound(s) (multiple) of unspecified site(s), without mention of complication 07/04/2008 10/21/2014 Rash and other nonspecific skin eruption 009 10/21/2014 Unspecified disorder of skin and subcutaneous ti ssue 06/22/2008 10/21/2014 Localized superficial swelling, mass, or lump 10/21/2014 Degenerative skin disorder 05/13/200810/21 DERMATOSES NOS///DYSCHROMIA OTHER 05/13/2008 10/21/2014 Other specified dermatoses 05/13/200810/21 Neoplasm of uncertain behavior of skin 9 10/21/2014 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 05/13/2008 10/21/2014 Other seborrheic keratosis 05/13/200810/21 ANGIOMA///NEVUS, NON-NEOPLASTIC 05/13/2008 10/21/2014 NEVUS////BENIGN MAAME SKIN TRUNK 05/13/2008 0 10/21/2014 Benign neoplasm of colon 08/12/2007 015 Unspecified constipation 08/12/2007 015 Nonspecific abnormal finding in stool contents 0 08/12/2007 10/21/2014 Internal hemorrhoids without mention of complica tion 08/12/2007 10/21/2014 Varicose veins of other sites Lumbago 10/21/2014 Degeneration of intervertebral disc, site unspec ified 10/21/2014 Essential hypertension Last Assessment & Plan: SBP <160 M>65 Continue home Atenolol 50 mg daily Lisinopril increased to 20mg daily prn hydralazine/labetalol Dysfunction of eustachian tube 0 10/21/2014 documented as of this encounter (statuses as of 08/06/2022) [facility]07-06-2022 History of Past illness Narrative* Problem Noted Date Resolved Date Insufficiency of right posterior tibial tendon 0 10/31/2021 12/20/2021 Dehydration 05/02/2021 10/15/2021 Urinary tract infection asso ciated with catheterization of urinary tract 05/02/2021 10/15/2021 Gait difficulty 04/09/2021 07/19/2021 General weakness 04/09/2021 07/19/2021 Melena 01/31/2021 02/01/2021 Last Assessment & Plan: 1 BM with some blood on 01/31, was impacted, otherwise normal. H/H stable, HDS Daily CBC, trend UTI (urinary tract infection) 01/31/2021 Last Assessment & Plan: UA and UC positive Bactrim for 3 days- last dose today WBC improving Hyponatremia 01/29/2021 10/15/2021 Last Assessment & Plan: Stabilizing. Na tab decreased to 2g TID Trend BMP daily Delirium 01/24/2021 10/15/2021 Last Assessment & Plan: Seroquel 12.5mg HS Nursing delirium protocol Normalize sleep/wake cycle. Continue melatonin 3mg/HS Leukocytosis 01/23/2021 01/25/2021 Last Assessment & Plan: Likely reactive, WBC: 14.9, afebrile, likely reactive to aneurysm rupture Procal normal, CXR without clear infiltrate -monitor off ABX -trend WBC/temp curve, downtredning Obesity, Class I, BMI 30-34.9 01/23/2021 Last Assessment & Plan: Evaluating and treating per NT recs Elevated lactic acid level 01/23/202101/25 Last Assessment & Plan: Post procedure vs. 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 Continue nimodipine until DC Keep normovolemic. Ambulate in unit. PT/OT/PMR: AR Respiratory insufficiency 01/22/20212020 Last Assessment & Plan: Extubated by anaesthesia prior to arrival Currently tolerating 8L simple mask -supplemental oxygen as needed to maintain SpO2>94%, wean to [place] today -PT/OT/OOB as tolerated Obstructive hydrocephalus 01/22/20212021 Last Assessment & Plan: 01/30 EVD removed Repeat CTH this AM stable. 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 Actinic Damage///Sun-Damaged Skin 08/14/2009 10/21/2014 Solar lentigo 08/14/2009 10/21/2014 Open wound(s) (multiple) of unspecified site(s), without mention of complication 07/04/2008 10/21/2014 Rash and other nonspecific skin eruption 009 10/21/2014 Unspecified disorder of skin and subcutaneous ti ssue 06/22/2008 10/21/2014 Localized superficial swelling, mass, or lump 10/21/2014 Degenerative skin disorder 05/13/200810/21 DERMATOSES NOS///DYSCHROMIA OTHER 05/13/2008 10/21/2014 Other specified dermatoses 05/13/200810/21 Neoplasm of uncertain behavior of skin 9 10/21/2014 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 05/13/2008 10/21/2014 Other seborrheic keratosis 05/13/200810/21 ANGIOMA///NEVUS, NON-NEOPLASTIC 05/13/2008 10/21/2014 NEVUS////BENIGN MAAME SKIN TRUNK 05/13/2008 0 10/21/2014 Benign neoplasm of colon 08/12/2007 015 Unspecified constipation 08/12/2007 015 Nonspecific abnormal finding in stool contents 0 08/12/2007 10/21/2014 Internal hemorrhoids without mention of complica tion 08/12/2007 10/21/2014 Varicose veins of other sites Lumbago 10/21/2014 Degeneration of intervertebral disc, site unspec ified 10/21/2014 Essential hypertension Last Assessment & Plan: SBP <160 M>65 Continue home Atenolol 50 mg daily Lisinopril increased to 20mg daily prn hydralazine/labetalol Dysfunction of eustachian tube 0 10/21/2014 documented as of this encounter (statuses as of 08/28/2022) [facility]07-06-2022 History of Past illness Narrative* Problem Noted Date Resolved Date Insufficiency of right posterior tibial tendon 0 10/31/2021 12/20/2021 Dehydration 05/02/2021 10/15/2021 Urinary tract infection asso ciated with catheterization of urinary tract 05/02/2021 10/15/2021 Gait difficulty 04/09/2021 07/19/2021 General weakness 04/09/2021 07/19/2021 Melena 01/31/2021 02/01/2021 Last Assessment & Plan: 1 BM with some blood on 01/31, was impacted, otherwise normal. H/H stable, HDS Daily CBC, trend UTI (urinary tract infection) 01/31/2021 Last Assessment & Plan: UA and UC positive Bactrim for 3 days- last dose today WBC improving Hyponatremia 01/29/2021 10/15/2021 Last Assessment & Plan: Stabilizing. Na tab decreased to 2g TID Trend BMP daily Delirium 01/24/2021 10/15/2021 Last Assessment & Plan: Seroquel 12.5mg HS Nursing delirium protocol Normalize sleep/wake cycle. Continue melatonin 3mg/HS Leukocytosis 01/23/2021 01/25/2021 Last Assessment & Plan: Likely reactive, WBC: 14.9, afebrile, likely reactive to aneurysm rupture Procal normal, CXR without clear infiltrate -monitor off ABX -trend WBC/temp curve, downtredning Obesity, Class I, BMI 30-34.9 01/23/2021 Last Assessment & Plan: Evaluating and treating per NT recs Elevated lactic acid level 01/23/202101/25 Last Assessment & Plan: Post procedure vs. 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 Continue nimodipine until DC Keep normovolemic. Ambulate in unit. PT/OT/PMR: AR Respiratory insufficiency 01/22/20212020 Last Assessment & Plan: Extubated by anaesthesia prior to arrival Currently tolerating 8L simple mask -supplemental oxygen as needed to maintain SpO2>94%, wean to [place] today -PT/OT/OOB as tolerated Obstructive hydrocephalus 01/22/20212021 Last Assessment & Plan: 01/30 EVD removed Repeat CTH this AM stable. 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 Actinic Damage///Sun-Damaged Skin 08/14/2009 10/21/2014 Solar lentigo 08/14/2009 10/21/2014 Open wound(s) (multiple) of unspecified site(s), without mention of complication 07/04/2008 10/21/2014 Rash and other nonspecific skin eruption 009 10/21/2014 Unspecified disorder of skin and subcutaneous ti ssue 06/22/2008 10/21/2014 Localized superficial swelling, mass, or lump 10/21/2014 Degenerative skin disorder 05/13/200810/21 DERMATOSES NOS///DYSCHROMIA OTHER 05/13/2008 10/21/2014 Other specified dermatoses 05/13/200810/21 Neoplasm of uncertain behavior of skin 9 10/21/2014 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 05/13/2008 10/21/2014 Other seborrheic keratosis 05/13/200810/21 ANGIOMA///NEVUS, NON-NEOPLASTIC 05/13/2008 10/21/2014 NEVUS////BENIGN MAAME SKIN TRUNK 05/13/2008 0 10/21/2014 Benign neoplasm of colon 08/12/2007 015 Unspecified constipation 08/12/2007 015 Nonspecific abnormal finding in stool contents 0 08/12/2007 10/21/2014 Internal hemorrhoids without mention of complica tion 08/12/2007 10/21/2014 Varicose veins of other sites Lumbago 10/21/2014 Degeneration of intervertebral disc, site unspec ified 10/21/2014 Essential hypertension 06/20/202 2 Last Assessment & Plan: SBP <160 M>65 Continue home Atenolol 50 mg daily Lisinopril increased to 20mg daily prn hydralazine/labetalol Dysfunction of eustachian tube 0 10/21/2014 documented as of this encounter (statuses as of 09/05/2022) [facility]07-06-2022 History of Past illness Narrative* Problem Noted Date Resolved Date Insufficiency of right posterior tibial tendon 0 10/31/2021 12/20/2021 Dehydration 05/02/2021 10/15/2021 Urinary tract infection asso ciated with catheterization of urinary tract 05/02/2021 10/15/2021 Gait difficulty 04/09/2021 07/19/2021 General weakness 04/09/2021 07/19/2021 Melena 01/31/2021 02/01/2021 Last Assessment & Plan: 1 BM with some blood on 01/31, was impacted, otherwise normal. H/H stable, HDS Daily CBC, trend UTI (urinary tract infection) 01/31/2021 Last Assessment & Plan: UA and UC positive Bactrim for 3 days- last dose today WBC improving Hyponatremia 01/29/2021 10/15/2021 Last Assessment & Plan: Stabilizing. Na tab decreased to 2g TID Trend BMP daily Delirium 01/24/2021 10/15/2021 Last Assessment & Plan: Seroquel 12.5mg HS Nursing delirium protocol Normalize sleep/wake cycle. Continue melatonin 3mg/HS Leukocytosis 01/23/2021 01/25/2021 Last Assessment & Plan: Likely reactive, WBC: 14.9, afebrile, likely reactive to aneurysm rupture Procal normal, CXR without clear infiltrate -monitor off ABX -trend WBC/temp curve, downtredning Obesity, Class I, BMI 30-34.9 01/23/2021 Last Assessment & Plan: Evaluating and treating per NT recs Elevated lactic acid level 01/23/202101/25 Last Assessment & Plan: Post procedure vs. 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 Continue nimodipine until DC Keep normovolemic. Ambulate in unit. PT/OT/PMR: AR Respiratory insufficiency 01/22/20212020 Last Assessment & Plan: Extubated by anaesthesia prior to arrival Currently tolerating 8L simple mask -supplemental oxygen as needed to maintain SpO2>94%, wean to [place] today -PT/OT/OOB as tolerated Obstructive hydrocephalus 01/22/20212021 Last Assessment & Plan: 01/30 EVD removed Repeat CTH this AM stable. 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 Actinic Damage///Sun-Damaged Skin 08/14/2009 10/21/2014 Solar lentigo 08/14/2009 10/21/2014 Open wound(s) (multiple) of unspecified site(s), without mention of complication 07/04/2008 10/21/2014 Rash and other nonspecific skin eruption 009 10/21/2014 Unspecified disorder of skin and subcutaneous ti ssue 06/22/2008 10/21/2014 Localized superficial swelling, mass, or lump 10/21/2014 Degenerative skin disorder 05/13/200810/21 DERMATOSES NOS///DYSCHROMIA OTHER 05/13/2008 10/21/2014 Other specified dermatoses 05/13/200810/21 Neoplasm of uncertain behavior of skin 9 10/21/2014 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 05/13/2008 10/21/2014 Other seborrheic keratosis 05/13/200810/21 ANGIOMA///NEVUS, NON-NEOPLASTIC 05/13/2008 10/21/2014 NEVUS////BENIGN MAAME SKIN TRUNK 05/13/2008 0 10/21/2014 Benign neoplasm of colon 08/12/2007 015 Unspecified constipation 08/12/2007 015 Nonspecific abnormal finding in stool contents 0 08/12/2007 10/21/2014 Internal hemorrhoids without mention of complica tion 08/12/2007 10/21/2014 Varicose veins of other sites Lumbago 10/21/2014 Degeneration of intervertebral disc, site unspec ified 10/21/2014 Essential hypertension Last Assessment & Plan: SBP <160 M>65 Continue home Atenolol 50 mg daily Lisinopril increased to 20mg daily prn hydralazine/labetalol Dysfunction of eustachian tube 0 10/21/2014 documented as of this encounter (statuses as of 10/11/2022) [facility]07-[facility]-2022 History of Past illness Narrative* Problem Noted Date Resolved Date Insufficiency of right posterior tibial tendon 0 10/31/2021 12/20/2021 Dehydration 05/02/2021 10/15/2021 Urinary tract infection asso ciated with catheterization of urinary tract 05/02/2021 10/15/2021 Gait difficulty 04/09/2021 07/19/2021 General weakness 04/09/2021 07/19/2021 Melena 01/31/2021 02/01/2021 Last Assessment & Plan: 1 BM with some blood on 01/31, was impacted, otherwise normal. H/H stable, HDS Daily CBC, trend UTI (urinary tract infection) 01/31/2021 Last Assessment & Plan: UA and UC positive Bactrim for 3 days- last dose today WBC improving Hyponatremia 01/29/2021 10/15/2021 Last Assessment & Plan: Stabilizing. Na tab decreased to 2g TID Trend BMP daily Delirium 01/24/2021 10/15/2021 Last Assessment & Plan: Seroquel 12.5mg HS Nursing delirium protocol Normalize sleep/wake cycle. Continue melatonin 3mg/HS Leukocytosis 01/23/2021 01/25/2021 Last Assessment & Plan: Likely reactive, WBC: 14.9, afebrile, likely reactive to aneurysm rupture Procal normal, CXR without clear infiltrate -monitor off ABX -trend WBC/temp curve, downtredning Obesity, Class I, BMI 30-34.9 01/23/2021 Last Assessment & Plan: Evaluating and treating per NT recs Elevated lactic acid level 01/23/202101/25 Last Assessment & Plan: Post procedure vs. 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 Continue nimodipine until DC Keep normovolemic. Ambulate in unit. PT/OT/PMR: AR Respiratory insufficiency 01/22/20212020 Last Assessment & Plan: Extubated by anaesthesia prior to arrival Currently tolerating 8L simple mask -supplemental oxygen as needed to maintain SpO2>94%, wean to [place] today -PT/OT/OOB as tolerated Obstructive hydrocephalus 01/22/20212021 Last Assessment & Plan: 10/5 EVD removed Repeat CTH this AM stable. 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 Actinic Damage///Sun-Damaged Skin 08/14/2009 10/21/2014 Solar lentigo 08/14/2009 10/21/2014 Open wound(s) (multiple) of unspecified site(s), without mention of complication 07/04/2008 10/21/2014 Rash and other nonspecific skin eruption 009 10/21/2014 Unspecified disorder of skin and subcutaneous ti ssue 06/22/2008 10/21/2014 Localized superficial swelling, mass, or lump 10/21/2014 Degenerative skin disorder 05/13/200810/21 DERMATOSES NOS///DYSCHROMIA OTHER 05/13/2008 10/21/2014 Other specified dermatoses 05/13/200810/21 Neoplasm of uncertain behavior of skin 9 10/21/2014 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 05/13/2008 10/21/2014 Other seborrheic keratosis 05/13/200810/21 ANGIOMA///NEVUS, NON-NEOPLASTIC 05/13/2008 10/21/2014 NEVUS////BENIGN MAAME SKIN TRUNK 05/13/2008 0 10/21/2014 Benign neoplasm of colon 08/12/2007 015 Unspecified constipation 08/12/2007 015 Nonspecific abnormal finding in stool contents 0 08/12/2007 10/21/2014 Internal hemorrhoids without mention of complica tion 08/12/2007 10/21/2014 Varicose veins of other sites Lumbago 10/21/2014 Degeneration of intervertebral disc, site unspec ified 10/21/2014 Essential hypertension Last Assessment & Plan: SBP <160 M>65 Continue home Atenolol 50 mg daily Lisinopril increased to 20mg daily prn hydralazine/labetalol Dysfunction of eustachian tube 0 10/21/2014 documented as of this encounter (statuses as of 10/17/2022) [facility]22 History of Past illness Narrative* Problem Noted Date Resolved Date Insufficiency of right posterior tibial tendon 0 10/31/2021 12/20/2021 Dehydration 05/02/2021 10/15/2021 Urinary tract infection asso ciated with catheterization of urinary tract 05/02/2021 10/15/2021 Gait difficulty 04/09/2021 07/19/2021 General weakness 04/09/2021 07/19/2021 Melena 01/31/2021 02/01/2021 Last Assessment & Plan: 1 BM with some blood on 01/31, was impacted, otherwise normal. H/H stable, HDS Daily CBC, trend UTI (urinary tract infection) 01/31/2021 Last Assessment & Plan: UA and UC positive Bactrim for 3 days- last dose today WBC improving Hyponatremia 01/29/2021 10/15/2021 Last Assessment & Plan: Stabilizing. Na tab decreased to 2g TID Trend BMP daily Delirium 01/24/2021 10/15/2021 Last Assessment & Plan: Seroquel 12.5mg HS Nursing delirium protocol Normalize sleep/wake cycle. Continue melatonin 3mg/HS Leukocytosis 01/23/2021 01/25/2021 Last Assessment & Plan: Likely reactive, WBC: 14.9, afebrile, likely reactive to aneurysm rupture Procal normal, CXR without clear infiltrate -monitor off ABX -trend WBC/temp curve, downtredning Obesity, Class I, BMI 30-34.9 01/23/2021 Last Assessment & Plan: Evaluating and treating per NT recs Elevated lactic acid level 01/23/202101/25 Last Assessment & Plan: Post procedure vs. 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 Continue nimodipine until DC Keep normovolemic. Ambulate in unit. PT/OT/PMR: AR Respiratory insufficiency 01/22/20212020 Last Assessment & Plan: Extubated by anaesthesia prior to arrival Currently tolerating 8L simple mask -supplemental oxygen as needed to maintain SpO2>94%, wean to [place] today -PT/OT/OOB as tolerated Obstructive hydrocephalus 01/22/20212021 Last Assessment & Plan: 01/30 EVD removed Repeat CTH this AM stable. 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 Actinic Damage///Sun-Damaged Skin 08/14/2009 10/21/2014 Solar lentigo 08/14/2009 10/21/2014 Open wound(s) (multiple) of unspecified site(s), without mention of complication 07/04/2008 10/21/2014 Rash and other nonspecific skin eruption 009 10/21/2014 Unspecified disorder of skin and subcutaneous ti ssue 06/22/2008 10/21/2014 Localized superficial swelling, mass, or lump 10/21/2014 Degenerative skin disorder 05/13/200810/21 DERMATOSES NOS///DYSCHROMIA OTHER 05/13/2008 10/21/2014 Other specified dermatoses 05/13/200810/21 Neoplasm of uncertain behavior of skin 9 10/21/2014 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 05/13/2008 10/21/2014 Other seborrheic keratosis 05/13/200810/21 ANGIOMA///NEVUS, NON-NEOPLASTIC 05/13/2008 10/21/2014 NEVUS////BENIGN MAAME SKIN TRUNK 05/13/2008 0 10/21/2014 Benign neoplasm of colon 08/12/2007 015 Unspecified constipation 08/12/2007 015 Nonspecific abnormal finding in stool contents 0 08/12/2007 10/21/2014 Internal hemorrhoids without mention of complica tion 08/12/2007 10/21/2014 Varicose veins of other sites Lumbago 10/21/2014 Degeneration of intervertebral disc, site unspec ified 10/21/2014 Essential hypertension Last Assessment & Plan: SBP <160 M>65 Continue home Atenolol 50 mg daily Lisinopril increased to 20mg daily prn hydralazine/labetalol Dysfunction of eustachian tube 0 10/21/2014 documented as of this encounter (statuses as of 10/18/2022) [facility]07-06-2022 History of Past illness Narrative* Problem Noted Date Diagnosed Date Resolved Date 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 H/H stable, HDS Daily CBC, trend UTI (urinary tract infection) 01/31/2021 10/15/2021 Last Assessment & Plan: UA and UC positive Bactrim for 3 days- last dose today WBC improving Hyponatremia 01/29/2021 10/15/2021 Last Assessment & Plan: Stabilizing. Na tab decreased to 2g TID Trend BMP daily Delirium 01/24/2021 10/15/2021 Last Assessment & Plan: Seroquel 12.5mg HS Nursing delirium protocol Normalize sleep/wake cycle. Continue melatonin 3mg/HS Leukocytosis 01/23/2021 01/25/2021 Last Assessment & Plan: Likely reactive, WBC: 14.9, afebrile, likely reactive to aneurysm rupture Procal normal, CXR without clear infiltrate -monitor off ABX -trend WBC/temp curve, downtredning Obesity, Class I, BMI 30-34.9 01/23/2021 10/15/2021 Last Assessment & Plan: Evaluating and treating per NT recs Elevated lactic acid level 01/23/2021 0 01/25/2021 Last Assessment & Plan: Post procedure vs. 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 Continue nimodipine until DC Keep normovolemic. Ambulate in unit. PT/OT/PMR: AR Respiratory insufficiency 01/22/2021 Last Assessment & Plan: Extubated by anaesthesia prior to arrival Currently tolerating 8L simple mask -supplemental oxygen as needed to maintain SpO2>94%, wean to NC today -PT/OT/OOB as tolerated Obstructive hydrocephalus 01/22/2021 Last Assessment & Plan: 01/30 EVD removed Repeat CTH this AM stable. 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 Actinic Damage///Sun-Damaged Skin 08/14/2009 10/21/2014 Solar lentigo 08/14/2009 10/21/2014 Open wound(s) (multiple) of unspecified site(s), without mention of complication 07/04/2008 10/21/2014 Rash and other nonspecific skin eruption 06/22/2008 10/21/2014 Unspecified disorder of skin and subcutaneous tissue 06/22/2008 10/21/2014 Localized superficial swelling, mass, or lump 06/22/19 09 10/21/2014 Degenerative skin disorder 05/13/2008 0 10/21/2014 DERMATOSES NOS///DYSCHROMIA OTHER 05/13/2008 10/21/2014 Other specified dermatoses 05/13/2008 0 10/21/2014 Neoplasm of uncertain behavior of skin 05/13/2008 10/21/2014 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 05/13/2008 10/21/2014 Other seborrheic keratosis 05/13/2008 0 10/21/2014 ANGIOMA///NEVUS, NON-NEOPLASTIC 05/13/2008 10/21/2014 NEVUS////BENIGN MAAME SKIN TRUNK 05/13/2008 10/21/2014 Benign neoplasm of colon 08/12/2007 Unspecified constipation 08/12/2007 Nonspecific abnormal finding in stool contents 08/12/2007 10/21/2014 Internal hemorrhoids without mention of complication 08/12/2007 10/21/2014 Varicose veins of other sites 10/21/2014 Lumbago 10/21/2014 Degeneration of intervertebr al disc, site unspecified 10/21/2014 Essential hypertension 10/15 Last Assessment & Plan: SBP <160 M>65 Continue home Atenolol 50 mg daily Lisinopril increased to 20mg daily prn hydralazine/labetalol Dysfunction of eustachian tube 10/21/2014 documented as of this encounter (statuses as of 11/26/2022) [facility]07-06-2022 History of Past illness Narrative* Problem Noted Date Diagnosed Date Resolved Date 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 H/H stable, HDS Daily CBC, trend UTI (urinary tract infection) 01/31/2021 10/15/2021 Last Assessment & Plan: UA and UC positive Bactrim for 3 days- last dose today WBC improving Hyponatremia 01/29/2021 10/15/2021 Last Assessment & Plan: Stabilizing. Na tab decreased to 2g TID Trend BMP daily Delirium 01/24/2021 10/15/2021 Last Assessment & Plan: Seroquel 12.5mg HS Nursing delirium protocol Normalize sleep/wake cycle. Continue melatonin 3mg/HS Leukocytosis 01/23/2021 01/25/2021 Last Assessment & Plan: Likely reactive, WBC: 14.9, afebrile, likely reactive to aneurysm rupture Procal normal, CXR without clear infiltrate -monitor off ABX -trend WBC/temp curve, downtredning Obesity, Class I, BMI 30-34.9 01/23/2021 10/15/2021 Last Assessment & Plan: Evaluating and treating per NT recs Elevated lactic acid level 01/23/2021 0 01/25/2021 Last Assessment & Plan: Post procedure vs. 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 Continue nimodipine until DC Keep normovolemic. Ambulate in unit. PT/OT/PMR: AR Respiratory insufficiency 01/22/2021 Last Assessment & Plan: Extubated by anaesthesia prior to arrival Currently tolerating 8L simple mask -supplemental oxygen as needed to maintain SpO2>94%, wean to NC today -PT/OT/OOB as tolerated Obstructive hydrocephalus 01/22/2021 Last Assessment & Plan: 01/30 EVD removed Repeat CTH this AM stable. 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 Actinic Damage///Sun-Damaged Skin 08/14/2009 10/21/2014 Solar lentigo 08/14/2009 10/21/2014 Open wound(s) (multiple) of unspecified site(s), without mention of complication 07/04/2008 10/21/2014 Rash and other nonspecific skin eruption 06/22/2008 10/21/2014 Unspecified disorder of skin and subcutaneous tissue 06/22/2008 10/21/2014 Localized superficial swelling, mass, or lump 06/22/19 09 10/21/2014 Degenerative skin disorder 05/13/2008 0 10/21/2014 DERMATOSES NOS///DYSCHROMIA OTHER 05/13/2008 10/21/2014 Other specified dermatoses 05/13/2008 0 10/21/2014 Neoplasm of uncertain behavior of skin 05/13/2008 10/21/2014 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 05/13/2008 10/21/2014 Other seborrheic keratosis 05/13/2008 0 10/21/2014 ANGIOMA///NEVUS, NON-NEOPLASTIC 05/13/2008 10/21/2014 NEVUS////BENIGN MAAME SKIN TRUNK 05/13/2008 10/21/2014 Benign neoplasm of colon 08/12/2007 Unspecified constipation 08/12/2007 Nonspecific abnormal finding in stool contents 08/12/2007 10/21/2014 Internal hemorrhoids without mention of complication 08/12/2007 10/21/2014 Varicose veins of other sites 10/21/2014 Lumbago 10/21/2014 Degeneration of intervertebr al disc, site unspecified 10/21/2014 Essential hypertension 10/15 Last Assessment & Plan: SBP <160 M>65 Continue home Atenolol 50 mg daily Lisinopril increased to 20mg daily prn hydralazine/labetalol Dysfunction of eustachian tube 10/21/2014 documented as of this encounter (statuses as of 12/06/2022) [facility]07-[facility]-2022 History of Past illness Narrative* Problem Noted Date Diagnosed Date Resolved Date 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 H/H stable, HDS Daily CBC, trend UTI (urinary tract infection) 01/31/2021 10/15/2021 Last Assessment & Plan: UA and UC positive Bactrim for 3 days- last dose today WBC improving Hyponatremia 01/29/2021 10/15/2021 Last Assessment & Plan: Stabilizing. Na tab decreased to 2g TID Trend BMP daily Delirium 01/24/2021 10/15/2021 Last Assessment & Plan: Seroquel 12.5mg HS Nursing delirium protocol Normalize sleep/wake cycle. Continue melatonin 3mg/HS Leukocytosis 01/23/2021 01/25/2021 Last Assessment & Plan: Likely reactive, WBC: 14.9, afebrile, likely reactive to aneurysm rupture Procal normal, CXR without clear infiltrate -monitor off ABX -trend WBC/temp curve, downtredning Obesity, Class I, BMI 30-34.9 01/23/2021 10/15/2021 Last Assessment & Plan: Evaluating and treating per NT recs Elevated lactic acid level 01/23/2021 0 01/25/2021 Last Assessment & Plan: Post procedure vs. 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 Continue nimodipine until DC Keep normovolemic. Ambulate in unit. PT/OT/PMR: AR Respiratory insufficiency 01/22/2021 Last Assessment & Plan: Extubated by anaesthesia prior to arrival Currently tolerating 8L simple mask -supplemental oxygen as needed to maintain SpO2>94%, wean to [place] today -PT/OT/OOB as tolerated Obstructive hydrocephalus 01/22/2021 Last Assessment & Plan: 01/30 EVD removed Repeat CTH this AM stable. 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 Actinic Damage///Sun-Damaged Skin 08/14/2009 10/21/2014 Solar lentigo 08/14/2009 10/21/2014 Open wound(s) (multiple) of unspecified site(s), without mention of complication 07/04/2008 10/21/2014 Rash and other nonspecific skin eruption 06/22/2008 10/21/2014 Unspecified disorder of skin and subcutaneous tissue 06/22/2008 10/21/2014 Localized superficial swelling, mass, or lump 06/22/19 09 10/21/2014 Degenerative skin disorder 05/13/2008 0 10/21/2014 DERMATOSES NOS///DYSCHROMIA OTHER 05/13/2008 10/21/2014 Other specified dermatoses 05/13/2008 0 10/21/2014 Neoplasm of uncertain behavior of skin 05/13/2008 10/21/2014 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 05/13/2008 10/21/2014 Other seborrheic keratosis 05/13/2008 0 10/21/2014 ANGIOMA///NEVUS, NON-NEOPLASTIC 05/13/2008 10/21/2014 NEVUS////BENIGN MAAME SKIN TRUNK 05/13/2008 10/21/2014 Benign neoplasm of colon 08/12/2007 Unspecified constipation 08/12/2007 Nonspecific abnormal finding in stool contents 08/12/2007 10/21/2014 Internal hemorrhoids without mention of complication 08/12/2007 10/21/2014 Varicose veins of other sites 10/21/2014 Lumbago 10/21/2014 Degeneration of intervertebr al disc, site unspecified 10/21/2014 Essential hypertension 10/15 Last Assessment & Plan: SBP <160 M>65 Continue home Atenolol 50 mg daily Lisinopril increased to 20mg daily prn hydralazine/labetalol Dysfunction of eustachian tube 10/21/2014 documented as of this encounter (statuses as of 12/23/2022) [facility]07-[facility]-2022 History of Past illness Narrative* Problem Noted Date Diagnosed Date Resolved Date 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 H/H stable, HDS Daily CBC, trend UTI (urinary tract infection) 01/31/2021 10/15/2021 Last Assessment & Plan: UA and UC positive Bactrim for 3 days- last dose today WBC improving Hyponatremia 01/29/2021 10/15/2021 Last Assessment & Plan: Stabilizing. Na tab decreased to 2g TID Trend BMP daily Delirium 01/24/2021 10/15/2021 Last Assessment & Plan: Seroquel 12.5mg HS Nursing delirium protocol Normalize sleep/wake cycle. Continue melatonin 3mg/HS Leukocytosis 01/23/2021 01/25/2021 Last Assessment & Plan: Likely reactive, WBC: 14.9, afebrile, likely reactive to aneurysm rupture Procal normal, CXR without clear infiltrate -monitor off ABX -trend WBC/temp curve, downtredning Obesity, Class I, BMI 30-34.9 01/23/2021 10/15/2021 Last Assessment & Plan: Evaluating and treating per NT recs Elevated lactic acid level 01/23/2021 0 01/25/2021 Last Assessment & Plan: Post procedure vs. 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 Continue nimodipine until DC Keep normovolemic. Ambulate in unit. PT/OT/PMR: AR Respiratory insufficiency 01/22/2021 Last Assessment & Plan: Extubated by anaesthesia prior to arrival Currently tolerating 8L simple mask -supplemental oxygen as needed to maintain SpO2>94%, wean to [place] today -PT/OT/OOB as tolerated Obstructive hydrocephalus 01/22/2021 Last Assessment & Plan: 01/30 EVD removed Repeat CTH this AM stable. 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 Actinic Damage///Sun-Damaged Skin 08/14/2009 10/21/2014 Solar lentigo 08/14/2009 10/21/2014 Open wound(s) (multiple) of unspecified site(s), without mention of complication 07/04/2008 10/21/2014 Rash and other nonspecific skin eruption 06/22/2008 10/21/2014 Unspecified disorder of skin and subcutaneous tissue 06/22/2008 10/21/2014 Localized superficial swelling, mass, or lump 06/22/19 09 10/21/2014 Degenerative skin disorder 05/13/2008 0 10/21/2014 DERMATOSES NOS///DYSCHROMIA OTHER 05/13/2008 10/21/2014 Other specified dermatoses 05/13/2008 0 10/21/2014 Neoplasm of uncertain behavior of skin 05/13/2008 10/21/2014 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 05/13/2008 10/21/2014 Other seborrheic keratosis 05/13/2008 0 10/21/2014 ANGIOMA///NEVUS, NON-NEOPLASTIC 05/13/2008 10/21/2014 NEVUS////BENIGN MAAME SKIN TRUNK 05/13/2008 10/21/2014 Benign neoplasm of colon 08/12/2007 Unspecified constipation 08/12/2007 Nonspecific abnormal finding in stool contents 08/12/2007 10/21/2014 Internal hemorrhoids without mention of complication 08/12/2007 10/21/2014 Varicose veins of other sites 10/21/2014 Lumbago 10/21/2014 Degeneration of intervertebr al disc, site unspecified 10/21/2014 Essential hypertension 10/15 Last Assessment & Plan: SBP <160 M>65 Continue home Atenolol 50 mg daily Lisinopril increased to 20mg daily prn hydralazine/labetalol Dysfunction of eustachian tube 10/21/2014 documented as of this encounter (statuses as of 12/23/2022) [facility]07-[facility]2022 History of Past illness Narrative* Problem Noted Date Diagnosed Date Resolved Date 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 H/H stable, HDS Daily CBC, trend UTI (urinary tract infection) 01/31/2021 10/15/2021 Last Assessment & Plan: UA and UC positive Bactrim for 3 days- last dose today WBC improving Hyponatremia 01/29/2021 10/15/2021 Last Assessment & Plan: Stabilizing. Na tab decreased to 2g TID Trend BMP daily Delirium 01/24/2021 10/15/2021 Last Assessment & Plan: Seroquel 12.5mg HS Nursing delirium protocol Normalize sleep/wake cycle. Continue melatonin 3mg/HS Leukocytosis 01/23/2021 01/25/2021 Last Assessment & Plan: Likely reactive, WBC: 14.9, afebrile, likely reactive to aneurysm rupture Procal normal, CXR without clear infiltrate -monitor off ABX -trend WBC/temp curve, downtredning Obesity, Class I, BMI 30-34.9 01/23/2021 10/15/2021 Last Assessment & Plan: Evaluating and treating per NT recs Elevated lactic acid level 01/23/2021 0 01/25/2021 Last Assessment & Plan: Post procedure vs. 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 Continue nimodipine until DC Keep normovolemic. Ambulate in unit. PT/OT/PMR: AR Respiratory insufficiency 01/22/2021 Last Assessment & Plan: Extubated by anaesthesia prior to arrival Currently tolerating 8L simple mask -supplemental oxygen as needed to maintain SpO2>94%, wean to [place] today -PT/OT/OOB as tolerated Obstructive hydrocephalus 01/22/2021 Last Assessment & Plan: 01/30 EVD removed Repeat CTH this AM stable. 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 Actinic Damage///Sun-Damaged Skin 08/14/2009 10/21/2014 Solar lentigo 08/14/2009 10/21/2014 Open wound(s) (multiple) of unspecified site(s), without mention of complication 07/04/2008 10/21/2014 Rash and other nonspecific skin eruption 06/22/2008 10/21/2014 Unspecified disorder of skin and subcutaneous tissue 06/22/2008 10/21/2014 Localized superficial swelling, mass, or lump 06/22/19 09 10/21/2014 Degenerative skin disorder 05/13/2008 0 10/21/2014 DERMATOSES NOS///DYSCHROMIA OTHER 05/13/2008 10/21/2014 Other specified dermatoses 05/13/2008 0 10/21/2014 Neoplasm of uncertain behavior of skin 05/13/2008 10/21/2014 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 05/13/2008 10/21/2014 Other seborrheic keratosis 05/13/2008 0 10/21/2014 ANGIOMA///NEVUS, NON-NEOPLASTIC 05/13/2008 10/21/2014 NEVUS////BENIGN MAAME SKIN TRUNK 05/13/2008 10/21/2014 Benign neoplasm of colon 08/12/2007 Unspecified constipation 08/12/2007 Nonspecific abnormal finding in stool contents 08/12/2007 10/21/2014 Internal hemorrhoids without mention of complication 08/12/2007 10/21/2014 Varicose veins of other sites 10/21/2014 Lumbago 10/21/2014 Degeneration of intervertebr al disc, site unspecified 10/21/2014 Essential hypertension 10/15 Last Assessment & Plan: SBP <160 M>65 Continue home Atenolol 50 mg daily Lisinopril increased to 20mg daily prn hydralazine/labetalol Dysfunction of eustachian tube 10/21/2014 documented as of this encounter (statuses as of 12/24/2022) [facility] History of Past illness Narrative* Problem Noted Date Diagnosed Date Resolved Date 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 H/H stable, HDS Daily CBC, trend UTI (urinary tract infection) 01/31/2021 10/15/2021 Last Assessment & Plan: UA and UC positive Bactrim for 3 days- last dose today WBC improving Hyponatremia 01/29/2021 10/15/2021 Last Assessment & Plan: Stabilizing. Na tab decreased to 2g TID Trend BMP daily Delirium 01/24/2021 10/15/2021 Last Assessment & Plan: Seroquel 12.5mg HS Nursing delirium protocol Normalize sleep/wake cycle. Continue melatonin 3mg/HS Leukocytosis 01/23/2021 01/25/2021 Last Assessment & Plan: Likely reactive, WBC: 14.9, afebrile, likely reactive to aneurysm rupture Procal normal, CXR without clear infiltrate -monitor off ABX -trend WBC/temp curve, downtredning Obesity, Class I, BMI 30-34.9 01/23/2021 10/15/2021 Last Assessment & Plan: Evaluating and treating per NT recs Elevated lactic acid level 01/23/2021 0 01/25/2021 Last Assessment & Plan: Post procedure vs. 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 Continue nimodipine until DC Keep normovolemic. Ambulate in unit. PT/OT/PMR: AR Respiratory insufficiency 01/22/2021 Last Assessment & Plan: Extubated by anaesthesia prior to arrival Currently tolerating 8L simple mask -supplemental oxygen as needed to maintain SpO2>94%, wean to [place] today -PT/OT/OOB as tolerated Obstructive hydrocephalus 01/22/2021 Last Assessment & Plan: 01/30 EVD removed Repeat CTH this AM stable. 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 Actinic Damage///Sun-Damaged Skin 08/14/2009 10/21/2014 Solar lentigo 08/14/2009 10/21/2014 Open wound(s) (multiple) of unspecified site(s), without mention of complication 07/04/2008 10/21/2014 Rash and other nonspecific skin eruption 06/22/2008 10/21/2014 Unspecified disorder of skin and subcutaneous tissue 06/22/2008 10/21/2014 Localized superficial swelling, mass, or lump 06/22/19 09 10/21/2014 Degenerative skin disorder 05/13/2008 0 10/21/2014 DERMATOSES NOS///DYSCHROMIA OTHER 05/13/2008 10/21/2014 Other specified dermatoses 05/13/2008 0 10/21/2014 Neoplasm of uncertain behavior of skin 05/13/2008 10/21/2014 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 05/13/2008 10/21/2014 Other seborrheic keratosis 05/13/2008 0 10/21/2014 ANGIOMA///NEVUS, NON-NEOPLASTIC 05/13/2008 10/21/2014 NEVUS////BENIGN MAAME SKIN TRUNK 05/13/2008 10/21/2014 Benign neoplasm of colon 08/12/2007 Unspecified constipation 08/12/2007 Nonspecific abnormal finding in stool contents 08/12/2007 10/21/2014 Internal hemorrhoids without mention of complication 08/12/2007 10/21/2014 Varicose veins of other sites 10/21/2014 Lumbago 10/21/2014 Degeneration of intervertebr al disc, site unspecified 10/21/2014 Essential hypertension 10/15 Last Assessment & Plan: SBP <160 M>65 Continue home Atenolol 50 mg daily Lisinopril increased to 20mg daily prn hydralazine/labetalol Dysfunction of eustachian tube 10/21/2014 documented as of this encounter (statuses as of 12/25/2022) [facility] History of Past illness Narrative* Problem Noted Date Diagnosed Date Resolved Date 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 H/H stable, HDS Daily CBC, trend UTI (urinary tract infection) 01/31/2021 10/15/2021 Last Assessment & Plan: UA and UC positive Bactrim for 3 days- last dose today WBC improving Hyponatremia 01/29/2021 10/15/2021 Last Assessment & Plan: Stabilizing. Na tab decreased to 2g TID Trend BMP daily Delirium 01/24/2021 10/15/2021 Last Assessment & Plan: Seroquel 12.5mg HS Nursing delirium protocol Normalize sleep/wake cycle. Continue melatonin 3mg/HS Leukocytosis 01/23/2021 01/25/2021 Last Assessment & Plan: Likely reactive, WBC: 14.9, afebrile, likely reactive to aneurysm rupture Procal normal, CXR without clear infiltrate -monitor off ABX -trend WBC/temp curve, downtredning Obesity, Class I, BMI 30-34.9 01/23/2021 10/15/2021 Last Assessment & Plan: Evaluating and treating per NT recs Elevated lactic acid level 01/23/2021 0 01/25/2021 Last Assessment & Plan: Post procedure vs. 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 Continue nimodipine until DC Keep normovolemic. Ambulate in unit. PT/OT/PMR: AR Respiratory insufficiency 01/22/2021 Last Assessment & Plan: Extubated by anaesthesia prior to arrival Currently tolerating 8L simple mask -supplemental oxygen as needed to maintain SpO2>94%, wean to NC today -PT/OT/OOB as tolerated Obstructive hydrocephalus 01/22/2021 Last Assessment & Plan: 01/30 EVD removed Repeat CTH this AM stable. 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 Actinic Damage///Sun-Damaged Skin 08/14/2009 10/21/2014 Solar lentigo 08/14/2009 10/21/2014 Open wound(s) (multiple) of unspecified site(s), without mention of complication 07/04/2008 10/21/2014 Rash and other nonspecific skin eruption 06/22/2008 10/21/2014 Unspecified disorder of skin and subcutaneous tissue 06/22/2008 10/21/2014 Localized superficial swelling, mass, or lump 06/22/19 09 10/21/2014 Degenerative skin disorder 05/13/2008 0 10/21/2014 DERMATOSES NOS///DYSCHROMIA OTHER 05/13/2008 10/21/2014 Other specified dermatoses 05/13/2008 0 10/21/2014 Neoplasm of uncertain behavior of skin 05/13/2008 10/21/2014 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 05/13/2008 10/21/2014 Other seborrheic keratosis 05/13/2008 0 10/21/2014 ANGIOMA///NEVUS, NON-NEOPLASTIC 05/13/2008 10/21/2014 NEVUS////BENIGN MAAME SKIN TRUNK 05/13/2008 10/21/2014 Benign neoplasm of colon 08/12/2007 Unspecified constipation 08/12/2007 Nonspecific abnormal finding in stool contents 08/12/2007 10/21/2014 Internal hemorrhoids without mention of complication 08/12/2007 10/21/2014 Varicose veins of other sites 10/21/2014 Lumbago 10/21/2014 Degeneration of intervertebr al disc, site unspecified 10/21/2014 Essential hypertension 10/15 Last Assessment & Plan: SBP <160 M>65 Continue home Atenolol 50 mg daily Lisinopril increased to 20mg daily prn hydralazine/labetalol Dysfunction of eustachian tube 10/21/2014 documented as of this encounter (statuses as of 02/26/2023) [facility]07-06-2022 History of Past illness Narrative* Problem Noted Date Diagnosed Date Resolved Date 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 H/H stable, HDS Daily CBC, trend UTI (urinary tract infection) 01/31/2021 10/15/2021 Last Assessment & Plan: UA and UC positive Bactrim for 3 days- last dose today WBC improving Hyponatremia 01/29/2021 10/15/2021 Last Assessment & Plan: Stabilizing. Na tab decreased to 2g TID Trend BMP daily Delirium 01/24/2021 10/15/2021 Last Assessment & Plan: Seroquel 12.5mg HS Nursing delirium protocol Normalize sleep/wake cycle. Continue melatonin 3mg/HS Leukocytosis 01/23/2021 01/25/2021 Last Assessment & Plan: Likely reactive, WBC: 14.9, afebrile, likely reactive to aneurysm rupture Procal normal, CXR without clear infiltrate -monitor off ABX -trend WBC/temp curve, downtredning Obesity, Class I, BMI 30-34.9 01/23/2021 10/15/2021 Last Assessment & Plan: Evaluating and treating per NT recs Elevated lactic acid level 01/23/2021 0 01/25/2021 Last Assessment & Plan: Post procedure vs. 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 Continue nimodipine until DC Keep normovolemic. Ambulate in unit. PT/OT/PMR: AR Respiratory insufficiency 01/22/2021 Last Assessment & Plan: Extubated by anaesthesia prior to arrival Currently tolerating 8L simple mask -supplemental oxygen as needed to maintain SpO2>94%, wean to [place] today -PT/OT/OOB as tolerated Obstructive hydrocephalus 01/22/2021 Last Assessment & Plan: 01/30 EVD removed Repeat CTH this AM stable. 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 Actinic Damage///Sun-Damaged Skin 08/14/2009 10/21/2014 Solar lentigo 08/14/2009 10/21/2014 Open wound(s) (multiple) of unspecified site(s), without mention of complication 07/04/2008 10/21/2014 Rash and other nonspecific skin eruption 06/22/2008 10/21/2014 Unspecified disorder of skin and subcutaneous tissue 06/22/2008 10/21/2014 Localized superficial swelling, mass, or lump 06/22/19 09 10/21/2014 Degenerative skin disorder 05/13/2008 0 10/21/2014 DERMATOSES NOS///DYSCHROMIA OTHER 05/13/2008 10/21/2014 Other specified dermatoses 05/13/2008 0 10/21/2014 Neoplasm of uncertain behavior of skin 05/13/2008 10/21/2014 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 05/13/2008 10/21/2014 Other seborrheic keratosis 05/13/2008 0 10/21/2014 ANGIOMA///NEVUS, NON-NEOPLASTIC 05/13/2008 10/21/2014 NEVUS////BENIGN MAAME SKIN TRUNK 05/13/2008 10/21/2014 Benign neoplasm of colon 08/12/2007 Unspecified constipation 08/12/2007 Nonspecific abnormal finding in stool contents 08/12/2007 10/21/2014 Internal hemorrhoids without mention of complication 08/12/2007 10/21/2014 Varicose veins of other sites 10/21/2014 Lumbago 10/21/2014 Degeneration of intervertebr al disc, site unspecified 10/21/2014 Essential hypertension 10/15 Last Assessment & Plan: SBP <160 M>65 Continue home Atenolol 50 mg daily Lisinopril increased to 20mg daily prn hydralazine/labetalol Dysfunction of eustachian tube 10/21/2014 documented as of this encounter (statuses as of 03/02/2023) [facility]07-06-2022 History of Past illness Narrative* Problem Noted Date Diagnosed Date Resolved Date 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 H/H stable, HDS Daily CBC, trend UTI (urinary tract infection) 01/31/2021 10/15/2021 Last Assessment & Plan: UA and UC positive Bactrim for 3 days- last dose today WBC improving Hyponatremia 01/29/2021 10/15/2021 Last Assessment & Plan: Stabilizing. Na tab decreased to 2g TID Trend BMP daily Delirium 01/24/2021 10/15/2021 Last Assessment & Plan: Seroquel 12.5mg HS Nursing delirium protocol Normalize sleep/wake cycle. Continue melatonin 3mg/HS Leukocytosis 01/23/2021 01/25/2021 Last Assessment & Plan: Likely reactive, WBC: 14.9, afebrile, likely reactive to aneurysm rupture Procal normal, CXR without clear infiltrate -monitor off ABX -trend WBC/temp curve, downtredning Obesity, Class I, BMI 30-34.9 01/23/2021 10/15/2021 Last Assessment & Plan: Evaluating and treating per NT recs Elevated lactic acid level 01/23/2021 0 01/25/2021 Last Assessment & Plan: Post procedure vs. 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 Continue nimodipine until DC Keep normovolemic. Ambulate in unit. PT/OT/PMR: AR Respiratory insufficiency 01/22/2021 Last Assessment & Plan: Extubated by anaesthesia prior to arrival Currently tolerating 8L simple mask -supplemental oxygen as needed to maintain SpO2>94%, wean to [place] today -PT/OT/OOB as tolerated Obstructive hydrocephalus 01/22/2021 Last Assessment & Plan: 01/30 EVD removed Repeat CTH this AM stable. 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 Actinic Damage///Sun-Damaged Skin 08/14/2009 10/21/2014 Solar lentigo 08/14/2009 10/21/2014 Open wound(s) (multiple) of unspecified site(s), without mention of complication 07/04/2008 10/21/2014 Rash and other nonspecific skin eruption 06/22/2008 10/21/2014 Unspecified disorder of skin and subcutaneous tissue 06/22/2008 10/21/2014 Localized superficial swelling, mass, or lump 06/22/19 09 10/21/2014 Degenerative skin disorder 05/13/2008 0 10/21/2014 DERMATOSES NOS///DYSCHROMIA OTHER 05/13/2008 10/21/2014 Other specified dermatoses 05/13/2008 0 10/21/2014 Neoplasm of uncertain behavior of skin 05/13/2008 10/21/2014 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 05/13/2008 10/21/2014 Other seborrheic keratosis 05/13/2008 0 10/21/2014 ANGIOMA///NEVUS, NON-NEOPLASTIC 05/13/2008 10/21/2014 NEVUS////BENIGN MAAME SKIN TRUNK 05/13/2008 10/21/2014 Benign neoplasm of colon 08/12/2007 Unspecified constipation 08/12/2007 Nonspecific abnormal finding in stool contents 08/12/2007 10/21/2014 Internal hemorrhoids without mention of complication 08/12/2007 10/21/2014 Varicose veins of other sites 10/21/2014 Lumbago 10/21/2014 Degeneration of intervertebr al disc, site unspecified 10/21/2014 Essential hypertension 10/15 Last Assessment & Plan: SBP <160 M>65 Continue home Atenolol 50 mg daily Lisinopril increased to 20mg daily prn hydralazine/labetalol Dysfunction of eustachian tube 10/21/2014 documented as of this encounter (statuses as of 03/02/2023) [facility]07-[facility]-2022 History of Past illness Narrative* Problem Noted Date Diagnosed Date Resolved Date 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 H/H stable, HDS Daily CBC, trend UTI (urinary tract infection) 01/31/2021 10/15/2021 Last Assessment & Plan: UA and UC positive Bactrim for 3 days- last dose today WBC improving Hyponatremia 01/29/2021 10/15/2021 Last Assessment & Plan: Stabilizing. Na tab decreased to 2g TID Trend BMP daily Delirium 01/24/2021 10/15/2021 Last Assessment & Plan: Seroquel 12.5mg HS Nursing delirium protocol Normalize sleep/wake cycle. Continue melatonin 3mg/HS Leukocytosis 01/23/2021 01/25/2021 Last Assessment & Plan: Likely reactive, WBC: 14.9, afebrile, likely reactive to aneurysm rupture Procal normal, CXR without clear infiltrate -monitor off ABX -trend WBC/temp curve, downtredning Obesity, Class I, BMI 30-34.9 01/23/2021 10/15/2021 Last Assessment & Plan: Evaluating and treating per NT recs Elevated lactic acid level 01/23/2021 0 01/25/2021 Last Assessment & Plan: Post procedure vs. 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 Continue nimodipine until DC Keep normovolemic. Ambulate in unit. PT/OT/PMR: AR Respiratory insufficiency 01/22/2021 Last Assessment & Plan: Extubated by anaesthesia prior to arrival Currently tolerating 8L simple mask -supplemental oxygen as needed to maintain SpO2>94%, wean to [place] today -PT/OT/OOB as tolerated Obstructive hydrocephalus 01/22/2021 Last Assessment & Plan: 01/30 EVD removed Repeat CTH this AM stable. 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 Actinic Damage///Sun-Damaged Skin 08/14/2009 10/21/2014 Solar lentigo 08/14/2009 10/21/2014 Open wound(s) (multiple) of unspecified site(s), without mention of complication 07/04/2008 10/21/2014 Rash and other nonspecific skin eruption 06/22/2008 10/21/2014 Unspecified disorder of skin and subcutaneous tissue 06/22/2008 10/21/2014 Localized superficial swelling, mass, or lump 06/22/19 09 10/21/2014 Degenerative skin disorder 05/13/2008 0 10/21/2014 DERMATOSES NOS///DYSCHROMIA OTHER 05/13/2008 10/21/2014 Other specified dermatoses 05/13/2008 0 10/21/2014 Neoplasm of uncertain behavior of skin 05/13/2008 10/21/2014 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 05/13/2008 10/21/2014 Other seborrheic keratosis 05/13/2008 0 10/21/2014 ANGIOMA///NEVUS, NON-NEOPLASTIC 05/13/2008 10/21/2014 NEVUS////BENIGN MAAME SKIN TRUNK 05/13/2008 10/21/2014 Benign neoplasm of colon 08/12/2007 Unspecified constipation 08/12/2007 Nonspecific abnormal finding in stool contents 08/12/2007 10/21/2014 Internal hemorrhoids without mention of complication 08/12/2007 10/21/2014 Varicose veins of other sites 10/21/2014 Lumbago 10/21/2014 Degeneration of intervertebr al disc, site unspecified 10/21/2014 Essential hypertension 10/15 Last Assessment & Plan: SBP <160 M>65 Continue home Atenolol 50 mg daily Lisinopril increased to 20mg daily prn hydralazine/labetalol Dysfunction of eustachian tube 10/21/2014 documented as of this encounter (statuses as of 03/04/2023) [facility]07-[facility]-2022 History of Past illness Narrative* Problem Noted Date Diagnosed Date Resolved Date 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 H/H stable, HDS Daily CBC, trend UTI (urinary tract infection) 01/31/2021 10/15/2021 Last Assessment & Plan: UA and UC positive Bactrim for 3 days- last dose today WBC improving Hyponatremia 01/29/2021 10/15/2021 Last Assessment & Plan: Stabilizing. Na tab decreased to 2g TID Trend BMP daily Delirium 01/24/2021 10/15/2021 Last Assessment & Plan: Seroquel 12.5mg HS Nursing delirium protocol Normalize sleep/wake cycle. Continue melatonin 3mg/HS Leukocytosis 01/23/2021 01/25/2021 Last Assessment & Plan: Likely reactive, WBC: 14.9, afebrile, likely reactive to aneurysm rupture Procal normal, CXR without clear infiltrate -monitor off ABX -trend WBC/temp curve, downtredning Obesity, Class I, BMI 30-34.9 01/23/2021 10/15/2021 Last Assessment & Plan: Evaluating and treating per NT recs Elevated lactic acid level 01/23/2021 0 01/25/2021 Last Assessment & Plan: Post procedure vs. 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 Continue nimodipine until DC Keep normovolemic. Ambulate in unit. PT/OT/PMR: AR Respiratory insufficiency 01/22/2021 Last Assessment & Plan: Extubated by anaesthesia prior to arrival Currently tolerating 8L simple mask -supplemental oxygen as needed to maintain SpO2>94%, wean to [place] today -PT/OT/OOB as tolerated Obstructive hydrocephalus 01/22/2021 Last Assessment & Plan: 01/30 EVD removed Repeat CTH this AM stable. 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 Actinic Damage///Sun-Damaged Skin 08/14/2009 10/21/2014 Solar lentigo 08/14/2009 10/21/2014 Open wound(s) (multiple) of unspecified site(s), without mention of complication 07/04/2008 10/21/2014 Rash and other nonspecific skin eruption 06/22/2008 10/21/2014 Unspecified disorder of skin and subcutaneous tissue 06/22/2008 10/21/2014 Localized superficial swelling, mass, or lump 06/22/19 09 10/21/2014 Degenerative skin disorder 05/13/2008 0 10/21/2014 DERMATOSES NOS///DYSCHROMIA OTHER 05/13/2008 10/21/2014 Other specified dermatoses 05/13/2008 0 10/21/2014 Neoplasm of uncertain behavior of skin 05/13/2008 10/21/2014 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 05/13/2008 10/21/2014 Other seborrheic keratosis 05/13/2008 0 10/21/2014 ANGIOMA///NEVUS, NON-NEOPLASTIC 05/13/2008 10/21/2014 NEVUS////BENIGN MAAME SKIN TRUNK 05/13/2008 10/21/2014 Benign neoplasm of colon 08/12/2007 Unspecified constipation 08/12/2007 Nonspecific abnormal finding in stool contents 08/12/2007 10/21/2014 Internal hemorrhoids without mention of complication 08/12/2007 10/21/2014 Varicose veins of other sites 10/21/2014 Lumbago 10/21/2014 Degeneration of intervertebr al disc, site unspecified 10/21/2014 Essential hypertension 10/15 Last Assessment & Plan: SBP <160 M>65 Continue home Atenolol 50 mg daily Lisinopril increased to 20mg daily prn hydralazine/labetalol Dysfunction of eustachian tube 10/21/2014 documented as of this encounter (statuses as of 03/11/2023) [facility] History of Past illness Narrative* Problem Noted Date Diagnosed Date Resolved Date 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 H/H stable, HDS Daily CBC, trend UTI (urinary tract infection) 01/31/2021 10/15/2021 Last Assessment & Plan: UA and UC positive Bactrim for 3 days- last dose today WBC improving Hyponatremia 01/29/2021 10/15/2021 Last Assessment & Plan: Stabilizing. Na tab decreased to 2g TID Trend BMP daily Delirium 01/24/2021 10/15/2021 Last Assessment & Plan: Seroquel 12.5mg HS Nursing delirium protocol Normalize sleep/wake cycle. Continue melatonin 3mg/HS Leukocytosis 01/23/2021 01/25/2021 Last Assessment & Plan: Likely reactive, WBC: 14.9, afebrile, likely reactive to aneurysm rupture Procal normal, CXR without clear infiltrate -monitor off ABX -trend WBC/temp curve, downtredning Obesity, Class I, BMI 30-34.9 01/23/2021 10/15/2021 Last Assessment & Plan: Evaluating and treating per NT recs Elevated lactic acid level 01/23/2021 0 01/25/2021 Last Assessment & Plan: Post procedure vs. 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 Continue nimodipine until DC Keep normovolemic. Ambulate in unit. PT/OT/PMR: AR Respiratory insufficiency 01/22/2021 Last Assessment & Plan: Extubated by anaesthesia prior to arrival Currently tolerating 8L simple mask -supplemental oxygen as needed to maintain SpO2>94%, wean to [place] today -PT/OT/OOB as tolerated Obstructive hydrocephalus 01/22/2021 Last Assessment & Plan: 01/30 EVD removed Repeat CTH this AM stable. 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 Actinic Damage///Sun-Damaged Skin 08/14/2009 10/21/2014 Solar lentigo 08/14/2009 10/21/2014 Open wound(s) (multiple) of unspecified site(s), without mention of complication 07/04/2008 10/21/2014 Rash and other nonspecific skin eruption 06/22/2008 10/21/2014 Unspecified disorder of skin and subcutaneous tissue 06/22/2008 10/21/2014 Localized superficial swelling, mass, or lump 06/22/19 09 10/21/2014 Degenerative skin disorder 05/13/2008 0 10/21/2014 DERMATOSES NOS///DYSCHROMIA OTHER 05/13/2008 10/21/2014 Other specified dermatoses 05/13/2008 0 10/21/2014 Neoplasm of uncertain behavior of skin 05/13/2008 10/21/2014 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 05/13/2008 10/21/2014 Other seborrheic keratosis 05/13/2008 0 10/21/2014 ANGIOMA///NEVUS, NON-NEOPLASTIC 05/13/2008 10/21/2014 NEVUS////BENIGN MAAME SKIN TRUNK 05/13/2008 10/21/2014 Benign neoplasm of colon 08/12/2007 Unspecified constipation 08/12/2007 Nonspecific abnormal finding in stool contents 08/12/2007 10/21/2014 Internal hemorrhoids without mention of complication 08/12/2007 10/21/2014 Varicose veins of other sites 10/21/2014 Lumbago 10/21/2014 Degeneration of intervertebr al disc, site unspecified 10/21/2014 Essential hypertension 10/15 Last Assessment & Plan: SBP <160 M>65 Continue home Atenolol 50 mg daily Lisinopril increased to 20mg daily prn hydralazine/labetalol Dysfunction of eustachian tube 10/21/2014 documented as of this encounter (statuses as of 04/04/2023) [facility] History of Past illness Narrative* Problem Noted Date Diagnosed Date Resolved Date 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 H/H stable, HDS Daily CBC, trend UTI (urinary tract infection) 01/31/2021 10/15/2021 Last Assessment & Plan: UA and UC positive Bactrim for 3 days- last dose today WBC improving Hyponatremia 01/29/2021 10/15/2021 Last Assessment & Plan: Stabilizing. Na tab decreased to 2g TID Trend BMP daily Delirium 01/24/2021 10/15/2021 Last Assessment & Plan: Seroquel 12.5mg HS Nursing delirium protocol Normalize sleep/wake cycle. Continue melatonin 3mg/HS Leukocytosis 01/23/2021 01/25/2021 Last Assessment & Plan: Likely reactive, WBC: 14.9, afebrile, likely reactive to aneurysm rupture Procal normal, CXR without clear infiltrate -monitor off ABX -trend WBC/temp curve, downtredning Obesity, Class I, BMI 30-34.9 01/23/2021 10/15/2021 Last Assessment & Plan: Evaluating and treating per NT recs Elevated lactic acid level 01/23/2021 0 01/25/2021 Last Assessment & Plan: Post procedure vs. 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 Continue nimodipine until DC Keep normovolemic. Ambulate in unit. PT/OT/PMR: AR Respiratory insufficiency 01/22/2021 Last Assessment & Plan: Extubated by anaesthesia prior to arrival Currently tolerating 8L simple mask -supplemental oxygen as needed to maintain SpO2>94%, wean to NC today -PT/OT/OOB as tolerated Obstructive hydrocephalus 01/22/2021 Last Assessment & Plan: 01/30 EVD removed Repeat CTH this AM stable. 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 Actinic Damage///Sun-Damaged Skin 08/14/2009 10/21/2014 Solar lentigo 08/14/2009 10/21/2014 Open wound(s) (multiple) of unspecified site(s), without mention of complication 07/04/2008 10/21/2014 Rash and other nonspecific skin eruption 06/22/2008 10/21/2014 Unspecified disorder of skin and subcutaneous tissue 06/22/2008 10/21/2014 Localized superficial swelling, mass, or lump 06/22/19 09 10/21/2014 Degenerative skin disorder 05/13/2008 0 10/21/2014 DERMATOSES NOS///DYSCHROMIA OTHER 05/13/2008 10/21/2014 Other specified dermatoses 05/13/2008 0 10/21/2014 Neoplasm of uncertain behavior of skin 05/13/2008 10/21/2014 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 05/13/2008 10/21/2014 Other seborrheic keratosis 05/13/2008 0 10/21/2014 ANGIOMA///NEVUS, NON-NEOPLASTIC 05/13/2008 10/21/2014 NEVUS////BENIGN MAAME SKIN TRUNK 05/13/2008 10/21/2014 Benign neoplasm of colon 08/12/2007 Unspecified constipation 08/12/2007 Nonspecific abnormal finding in stool contents 08/12/2007 10/21/2014 Internal hemorrhoids without mention of complication 08/12/2007 10/21/2014 Varicose veins of other sites 10/21/2014 Lumbago 10/21/2014 Degeneration of intervertebr al disc, site unspecified 10/21/2014 Essential hypertension 10/15 Last Assessment & Plan: SBP <160 M>65 Continue home Atenolol 50 mg daily Lisinopril increased to 20mg daily prn hydralazine/labetalol Dysfunction of eustachian tube 10/21/2014 documented as of this encounter (statuses as of 06/13/2023) [facility] History of Past illness Narrative* Problem Noted Date Diagnosed Date Resolved Date 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 H/H stable, HDS Daily CBC, trend UTI (urinary tract infection) 01/31/2021 10/15/2021 Last Assessment & Plan: UA and UC positive Bactrim for 3 days- last dose today WBC improving Hyponatremia 01/29/2021 10/15/2021 Last Assessment & Plan: Stabilizing. Na tab decreased to 2g TID Trend BMP daily Delirium 01/24/2021 10/15/2021 Last Assessment & Plan: Seroquel 12.5mg HS Nursing delirium protocol Normalize sleep/wake cycle. Continue melatonin 3mg/HS Leukocytosis 01/23/2021 01/25/2021 Last Assessment & Plan: Likely reactive, WBC: 14.9, afebrile, likely reactive to aneurysm rupture Procal normal, CXR without clear infiltrate -monitor off ABX -trend WBC/temp curve, downtredning Obesity, Class I, BMI 30-34.9 01/23/2021 10/15/2021 Last Assessment & Plan: Evaluating and treating per NT recs Elevated lactic acid level 01/23/2021 0 01/25/2021 Last Assessment & Plan: Post procedure vs. 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 Continue nimodipine until DC Keep normovolemic. Ambulate in unit. PT/OT/PMR: AR Respiratory insufficiency 01/22/2021 Last Assessment & Plan: Extubated by anaesthesia prior to arrival Currently tolerating 8L simple mask -supplemental oxygen as needed to maintain SpO2>94%, wean to NC today -PT/OT/OOB as tolerated Obstructive hydrocephalus 01/22/2021 Last Assessment & Plan: 01/30 EVD removed Repeat CTH this AM stable. 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 Actinic Damage///Sun-Damaged Skin 08/14/2009 10/21/2014 Solar lentigo 08/14/2009 10/21/2014 Open wound(s) (multiple) of unspecified site(s), without mention of complication 07/04/2008 10/21/2014 Rash and other nonspecific skin eruption 06/22/2008 10/21/2014 Unspecified disorder of skin and subcutaneous tissue 06/22/2008 10/21/2014 Localized superficial swelling, mass, or lump 06/22/19 09 10/21/2014 Degenerative skin disorder 05/13/2008 0 10/21/2014 DERMATOSES NOS///DYSCHROMIA OTHER 05/13/2008 10/21/2014 Other specified dermatoses 05/13/2008 0 10/21/2014 Neoplasm of uncertain behavior of skin 05/13/2008 10/21/2014 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 05/13/2008 10/21/2014 Other seborrheic keratosis 05/13/2008 0 10/21/2014 ANGIOMA///NEVUS, NON-NEOPLASTIC 05/13/2008 10/21/2014 NEVUS////BENIGN MAAME SKIN TRUNK 05/13/2008 10/21/2014 Benign neoplasm of colon 08/12/2007 Unspecified constipation 08/12/2007 Nonspecific abnormal finding in stool contents 08/12/2007 10/21/2014 Internal hemorrhoids without mention of complication 08/12/2007 10/21/2014 Varicose veins of other sites 10/21/2014 Lumbago 10/21/2014 Degeneration of intervertebr al disc, site unspecified 10/21/2014 Essential hypertension 10/15 Last Assessment & Plan: SBP <160 M>65 Continue home Atenolol 50 mg daily Lisinopril increased to 20mg daily prn hydralazine/labetalol Dysfunction of eustachian tube 10/21/2014 documented as of this encounter (statuses as of 06/13/2023) [facility] History of Present illness Narrative* Ruddy Cooper MD - 10/17/2021 9:00 AM EDT This note was created using Skulptriter. Subjective Judi Krause is a 76 year old female. Patient presents with: F/U 6 months SUBJECTIVE: Judi Krause is a 76 year old year old lady here today for 6 month follow up appointment for review of medical conditions. Going to [facility] for her right ankle after issues with failed hardware (broken screws). Alsowill need left foot addressed for problems after surgery for hammertoe. Will see for first appointment next Friday. Decided to go to [facility] for breast cancer treatment. Discussed bad experience had with breast biopsy in [place]. Noted severe dry heaving when had the cerebral aneurysm problem. Abdominal muscles still gets pain in abdominal muscles if coughs or sneezes hard since then. Prevents constipation, takes cascara. 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 To Zuelta (derm) treated 07/25/16 biopsy followed by cryo Benign neoplasm of colon Degeneration of intervertebral disc, site unspecified Depressive disorder, not elsewhere classified Depression (non-psychotic) Disorder of bone and cartilage, unspecified Dysfunction of eustachian tube Essential hypertension, benign Generalized anxiety disorder Anxiety, Generalized Internal hemorrhoids without mention of complication Lumbago Nonspecific abnormal finding in stool contents Ocular migraine Osteoporosis, unspecified Type 2 diabetes mellitus without complication, without long-term current use of insulin (HCC) Unspecified constipation Unspecified essential hypertension Varicose veins of other sites Current Outpatient Medications Medication Sig lisinopril (ZESTRIL, PRINIVIL) 10 mg tablet Take 1 tablet by mouth once daily. anastrozole (ARIMIDEX) 1 mg tablet Take 1 mg by mouth once daily. Vitamin E, dl, acetate, 1,000 unit capsule 1,000 Units. vitamin A (AQUASOL A) 10,000 unit capsule Take by mouth. Cholecalciferol, Vitamin D3, 125 mcg (5,000 unit) cap 5,000 Units. flaxseed-omega3,6,9-fatty acid 1,300-670-155 mg cap TWICE A DAY aspirin, enteric coated (ASPIRIN, ENTERIC COATED) 81 mg EC tablet Take by mouth. cyanocobalamin (VITAMIN B-12) 100 mcg tab Take 100 mcg by mouth once daily. vitamin b complex capsule Take 1 capsule by mouth once daily. elderberry fruit (ELDERBERRY ORAL) Take by mouth. vitamins A and D (VITAMINS A & D ORAL) Take by mouth. fluticasone (FLONASE) 50 mcg/actuation nasal spray Use 2 Sprays in each nostril once daily. For nasal drainage and congestion rinse mouth after use. Disp: one bottle nortriptyline (PAMELOR) 25 mg capsule Take 1 capsule by mouth daily at bedtime. anastrozole (ARIMIDEX) 1 mg tablet Take 1 tablet by mouth once daily. yejx-zctfv-gd4-kgj-gfp-rhil-st (GLUCOSAMINE CHONDROITIN PLUS) 209-570-60-54 mg cap Take 1 capsule by mouth once daily. TURMERIC ORAL Take by mouth. On hold folic acid 400 mcg tablet Take 400 mcg by mouth once daily. ascorbic acid, vitamin C, (VITAMIN C) 500 mg tablet Take 500 mg by mouth once daily. traMADol (ULTRAM) 50 mg tablet (Patient not taking: Reported on 08/07/2021) No current facility-administered medications for this visit. Review of Systems Objective There were no vitals taken for this visit. Physical Exam Component Latest Ref Rng & Units 03/14/2021 05/09/2021 06/11/2021 WBC 3.70 - 11.00 k/uL 7.21 RBC 3.90 - 5.20 m/uL 4.46 Hemoglobin 11.5 - 15.5 g/dL 13.9 Hematocrit 36.0 - 46.0 % 42.2 MCV 80.0 - 100.0 fL 94.6 MCH 26.0 - 34.0 pG 31.2 MCHC 30.5 - 36.0 g/dL 32.9 RDW-CV 11.5 - 15.0 % 12.4 Platelet Count 150 - 400 k/uL 349 MPV 9.0 - 12.7 fL 8.6 (L) Neut% % 68.5 Abs Neut (ANC) 1.45 - 7.50 k/uL 4.92 Lymph% % 19.6 Abs Lymph 1.00 - 4.00 k/uL 1.41 Thayer% % 9.4 Abs Thayer <0.87 k/uL 0.68 Eosin% % 2.1 Abs Eosin <0.46 k/uL 0.15 Baso% % 0.4 Abs Baso <0.11 k/uL 0.03 Nucleated Reds 0 /100 WBC 0.0 Absolute nRBC <0.01 k/uL <0.01 Diff Type Auto Diff Protein, Total 6.3 - 8.0 g/dL 7.0 Albumin 3.9 - 4.9 g/dL 4.4 Calcium 8.5 - 10.2 mg/dL 10.0 10.1 Bilirubin, Total 0.2 - 1.3 mg/dL 0.4 Alkaline Phosphatase 34 - 123 U/L 52 AST 13 - 35 U/L 27 Glucose 74 - 99 mg/dL 128 (H) 158 (H) BUN 7 - 21 mg/dL 18 15 Creatinine 0.58 - 0.96 mg/dL 0.73 0.71 Sodium 136 - 144 mmol/L 138 138 Potassium 3.7 - 5.1 mmol/L 4.3 4.7 Chloride 97 - 105 mmol/L 100 100 CO2 22 - 30 mmol/L 23 23 Anion Gap 9 - 18 mmol/L 15 15 ALT 7 - 38 U/L 27 eGFR- >60 >60 eGFR-All Other Races . >60 >60 Magnesium 1.7 - 2.3 mg/dL 2.1 Vitamin D 25 Hydroxy 31.0 - 80.0 ng/mL 25.7 (L) Hemoglobin A1C (%) Date Value 01/08/2021 6.8 08/01/2020 6.8 05/08/2018 6.3 10/05/2016 6.1 05/06/2014 5.9 Assessment and Plan ASSESSMENT/PLAN: 1. Insomnia, unspecified type - ICD9: 780.52, ICD10: G47.00 (primary diagnosis) Stable with current management . Uses just as needed; not needing nightly - ZOLPIDEM 10 MG TABLET 2. Anxiety - ICD9: 300.00, ICD10: F41.9 Just needs prn - ALPRAZOLAM 0.25 MG TABLET 3. Vitamin D deficiency - ICD9: 268.9, ICD10: E55.9 Adjust dose as needed - VITAMIN D 25 HYDROXY 4. Type 2 diabetes mellitus with diabetic neuropathy, without long-term current use of insulin (HCC) - ICD9: 250.60, 357.2, ICD10: E11.40 Continue present management. - HGB A1C - COMP METABOLIC PANEL - CBC - LIPID PANEL, NONFASTING 5. Encounter for long-term current use of medication - ICD9: V58.69, ICD10: Z79.899 - COMP METABOLIC PANEL - CBC 6. Breast cancer--following at [facility], Ruddy Cooper MD documented in this encounterWilson [facility] History of Present illness Narrative* Ruiz Serrato APRN.MANUAL LATHE OPERATOR - 10/08/2021 12:11 PM EDT Images from the original note were not included. Subjective HPI Nontoxic-appearing female presents urgent care chief complaint right ankle deformity. Patient states about a week and a half ago she noticed what appears to be hardware moving into her lateral aspectof right ankle. Patient states 3 years ago she fractured her ankle had rods and screws placed. Has previously had one of the screws break off. This happened approximately a couple weeks after initial surgery. Surgery was performed at [facility]. Presents today due to concerns thather hardware is moving in her ankle. States she does not have any pain. States she does have neuropathy and cannot feel her feet or ankles. Has been present for 4 to 5 years. No new injuries. No redness or breaks in skin. Past medical history prescription medication use allergies reviewed. 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, unspecified Dysfunction of eustachian tube Essential hypertension, benign Generalized anxiety disorder Anxiety, Generalized Internal hemorrhoids without mention of complication Lumbago Nonspecific abnormal finding in stool contents Ocular migraine Osteoporosis, unspecified Type 2 diabetes mellitus without complication, without long-term current use of insulin (HCC) Unspecified constipation Unspecified essential hypertension Varicose veins of other sites PAST SURGICAL HISTORY Procedure Laterality Date ABDOMINAL SURGERY HX 2004 tummy tuck ANESTHESIA HERNIA REPAIR LOWER ABDOMEN NOS ANKLE SURGERY HX Right 04/2019 Tendon repair BREAST LUMPECTOMY HX Left 01/2020 BREAST LUMPECTOMY HX Bilateral 01/2020 re-excision of margins COIL, EMBOLIZATION 2005 aneurysm COLONOSCOPY W/BIOPSY SINGLE/MULTIPLE 08/12/2007 FASCT PALM W/WO Z-PLASTY TISSUE REARGMT/SKN GRFT Right 01/05/2019 Right 5th finger palmar fasciectomy HAMMERTOE REVISION, ONE TOE Left 2016 HYSTERECTOMY HX 12/03/1988 IRIDOTOMY/IRIDECTOMY BY LASER Right OPEN TREATMENT,TRIMALLEOLAR ANKLE FRACTURE Right 05/29/2018 [facility] PICC LINE INSERT/CONSULT 01/23/2021 PICC LINE INSERT/CONSULT 01/29/2021 REMV CATARACT EXTRACAP,INSERT LENS Bilateral SHX CRANIOTOMY Left 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 Bahena ALLERGIES Codeine, Morphine, and Prozac [Fluoxetine] MEDICATIONS lisinopril (ZESTRIL, PRINIVIL) 10 mg tablet Take 1 tablet by mouth once daily. zolpidem (AMBIEN) 5 mg tablet Take 0.5 tablets by mouth at bedtime as needed for sedation (for insomnia) for up to 14 days. anastrozole (ARIMIDEX) 1 mg tablet Take 1 mg by mouth once daily. Vitamin E, dl, acetate, 1,000 unit capsule 1,000 Units. vitamin A (AQUASOL A) 10,000 unit capsule Take by mouth. traMADol (ULTRAM) 50 mg tablet Cholecalciferol, Vitamin D3, 125 mcg (5,000 unit) cap 5,000 Units. flaxseed-omega3,6,9-fatty acid 1,300-670-155 mg cap TWICE A DAY aspirin, enteric coated (ASPIRIN, ENTERIC COATED) 81 mg EC tablet Take by mouth. cyanocobalamin (VITAMIN B-12) 100 mcg tab Take 100 mcg by mouth once daily. vitamin b complex capsule Take 1 capsule by mouth once daily. elderberry fruit (ELDERBERRY ORAL) Take by mouth. vitamins A and D (VITAMINS A & D ORAL) Take by mouth. fluticasone (FLONASE) 50 mcg/actuation nasal spray Use 2 Sprays in each nostril once daily. For nasal drainage and congestion rinse mouth after use. Disp: one bottle nortriptyline (PAMELOR) 25 mg capsule Take 1 capsule by mouth daily at bedtime. anastrozole (ARIMIDEX) 1 mg tablet Take 1 tablet by mouth once daily. lyaj-oerzx-ml6-nrg-eye-lgyn-st (GLUCOSAMINE CHONDROITIN PLUS) 232-898-74-54 mg cap Take 1 capsule by mouth once daily. acetaminophen (TYLENOL) 325 mg tablet 2 tablets by ORAL/FEEDING TUBE route every 4 hours as needed for pain. TURMERIC ORAL Take by mouth. On hold folic acid 400 mcg tablet Take 400 mcg by mouth once daily. ascorbic acid, vitamin C, (VITAMIN C) 500 mg tablet Take 500 mg by mouth once daily. FAMILY HISTORY Problem Relation Age of Onset Breast Cancer Mother 72 Hypertension Mother Alzheimer's Disease Mother Coronary Artery Disease Father Alzheimer's Disease Sister Breast Cancer Maternal Aunt No Ocular Disease Other Social History Tobacco Use Smoking status: Never Smoker Smokeless tobacco: Never Used Vaping Use Vaping Use: Never used Substance Use Topics Alcohol use: No Drug use: Never BP 96/70 Pulse 103 Temp 36.3 C (97.3 F) Resp 20 Wt 63.8 kg (140 lb 9.6 oz) SpO2 99% BMI24.51 kg/m Review of Systems Constitutional: Negative for chills, fever and malaise/fatigue. HENT: Negative for congestion, ear discharge, ear pain, sinus pain and sore throat. Eyes: Negative for blurred vision, pain, discharge and redness. Respiratory: Negative for cough, hemoptysis, sputum production, shortness of breath, wheezing and stridor. Cardiovascular: Negative for chest pain. Gastrointestinal: Negative for abdominal pain, diarrhea, nausea and vomiting. Musculoskeletal: Negative for falls, joint pain and myalgias. Skin: Negative for itching and rash. Neurological: Negative for dizziness and headaches. Objective Physical Exam Constitutional: General: She is not in acute distress. Appearance: She is not diaphoretic. HENT: Head: Normocephalic. Mouth/Throat: Mouth: Mucous membranes are moist. Pharynx: Oropharynx is clear. No oropharyngeal exudate or posterior oropharyngeal erythema. Eyes: Conjunctiva/sclera: Conjunctivae normal. Pupils: Pupils are equal, round, and reactive to light. Cardiovascular: Rate and Rhythm: Normal rate and regular rhythm. Heart sounds: Normal heart sounds. Pulmonary: Effort: Pulmonary effort is normal. No tachypnea, accessory muscle usage or respiratory distress. Breath sounds: Normal breath sounds. No stridor. Abdominal: Palpations: Abdomen is soft. Tenderness: There is no abdominal tenderness. Musculoskeletal: Cervical back: Normal range of motion and neck supple. No rigidity or tenderness. Right ankle: No swelling, deformity, ecchymosis or lacerations. No tenderness. Legs: Comments: Surgical scar noted lateral aspect of right ankle. No breaks in skin. No redness. Good pedal pulses noted. Brisk cap refill. No evidence of infection. Lymphadenopathy: Cervical: No cervical adenopathy. Skin: General: Skin is warm and dry. Neurological: Mental Status: She is alert and oriented to person, place, and time. ASSESSMENT/PLAN: 1. Acute right ankle pain - ICD9: 719.47, 338.19, ICD10: M25.571 IMPRESSION: 1. Postsurgical and remote posttraumatic changes, as described. 2.Inferior long screw transfixing the syndesmosis is fractured. X-ray results reviewed with patient. Patient states she does not want to see surgeon performed initial surgery. Patient will be scheduled with [facility] foot [facility] ankle. Appointment scheduled. We will follow-up with orthopedic doctor as scheduled. Follow-up with PCP did discuss ongoing neuropathy. Red flags for prompt reevaluation discussed. Supportive therapies discussed. Patient verbalized understanding agrees with plan of care. Ruiz Serrato APRN.DESIRAE documented in this encounterWilson Memorial Hospital05-11-2022 Miscellaneous Notes* Telephone Encounter - Carolina Don LPN - 09/05/2021 3:56 PM EDT Patient has been identified by name and date of : Yes Patient phones for refill(s): Pending Prescriptions Disp Refills LISINOPRIL 10 MG TABLET 90 tablet 3 Sig: Take 1 tablet by mouth once daily. ZELALEM: No Date of last office visit in primary care: 03/29/2021 Last 2 Encounter Wt Readings: Date: Wt: 06/05/2021 65.3 kg (144 lb) 03/29/2021 66.7 kg (147 lb) Previous labs/tests for medication: Blood Pressure: BUN (mg/dL) Date Value 05/09/2021 15 Sodium (mmol/L) Date Value 05/09/2021 138 Last 1 Encounter BP Readings: Date: BP: 06/05/2021 123/62 Please advise. Thank you. Carolina Don LPN documented in this encounterWilson Memorial Hospital04-12-2022 NoteHNO ID: [id number] Author: RT Estephania(R) Service: Radiology Author Type: Technologist Type: Progress Notes Filed: 08/07/2021 1:09 PM Note Text: Radiology Service Progress Note PATIENT NAME: Judi Krause DATE OF SERVICE: August 07, 2021 TIME: 1:09 PM PATIENT IDENTITY VERIFICATION COMPLETED USING TWO (2) IDENTIFIERS: Name and Date of confirmed by patient verbally. FALL SCREENING: Has the patient had 2 falls in the last year or 1 fall with injury or currently using an Ambulatory Assistive Device (Walker, Cane, Wheelchair, Crutches, etc.)? No PATIENT GENDER DATA: Female. status: : No status: N/A PATIENT RELEVANT IMPLANT DATA REVIEWED: Not Applicable RADIOLOGY DEPARTMENT: General X-ray: Exam(s) Completed: Lower Extremity X-Ray(s): Knee, AP / Lat / Merchant Right PERIPHERAL IV DATA: Not applicable SIGNED BY: RT Estephania(R) August 07, 2021 1:09 PMSelect [facility] [id number] History of Present illness Narrative* RT Estephania(R) - 08/07/2021 1:55 PM EDT Radiology Service Progress Note PATIENT NAME: Judi Krause DATE OF SERVICE: August 07, 2021 TIME: 1:09 PM PATIENT IDENTITY VERIFICATION COMPLETED USING TWO (2) IDENTIFIERS: Name and Date of confirmedby patient verbally. FALL SCREENING: Has the patient had 2 falls in the last year or 1 fall with injury or currently using an Ambulatory Assistive Device (Walker, Cane, Wheelchair, Crutches, etc.)? No PATIENT GENDER DATA: Female. status: : No status: N/A PATIENT RELEVANT IMPLANT DATA REVIEWED: Not Applicable RADIOLOGY DEPARTMENT: General X-ray: Exam(s) Completed: Lower Extremity X- Ray(s): Knee, AP / Lat / Merchant Right PERIPHERAL IV DATA: Not applicable SIGNED BY: RT Estephania(R) August 07, 2021 1:09 PM documented in this encounterWilson Memorial Hospital04-11-2022 Miscellaneous Notes* Telephone Encounter - Jocelyn Zhou - 08/06/2021 1:17 PM EDT Left VM to leave early due to construction on RT 18 documented in this encounterWilson Memorial Hospital03-08-2022 NoteHNO ID: [id number] Author: RT Andrea(Huy) Service: Radiology Author Type: Technologist Type: Progress Notes Filed: 07/03/2021 10:47 AM Note Text: Radiology Service Progress Note DATE OF SERVICE: July 03, 2021 TIME: 10:45 AM PATIENT IDENTITY VERIFICATION COMPLETED USING TWO (2) STANDARD IDENTIFIERS: Name and Date of confirmed by patient verbally and Name and Date of confirmed by identification band. FALL SCREENING: Has the patient had 2 falls in the last year or 1 fall with injury or currently using an Ambulatory Assistive Device (Walker, Cane, Wheelchair, Crutches, etc.)? No PATIENT GENDER DATA: Female. status: : No status: NO. PATIENT RELEVANT IMPLANT DATA REVIEWED: Yes see scanned doc for implants. MRA not recommended due to artifact. OK to proceed with test per Dr Samuels ALLERGIES: Reviewed and unchanged CONTRAST ALLERGY: NO. EXAM: MRI - CONTRAST TYPE: GROUP II PERIPHERAL IV DATA: IV with US by malathi Mccrary RADIOLOGY DEPARTMENT: MR; Exam(s) Completed: Head: Post Coil SIGNATURE: RT Andrea(R) PATIENT NAME: Judi Krause DATE: July 03, 2021 TIME: 10:45 AMSelect Medical Specialty Hospital - [id number] History of Past illness Narrative* Problem Noted Date Resolved Date Dehydration 05/02/2021 10/15/2021 Urinary tract infection asso ciated with catheterization of urinary tract 05/02/2021 10/15/2021 Gait difficulty 04/09/2021 07/19/2021 General weakness 04/09/2021 07/19/2021 Melena 01/31/2021 02/01/2021 Last Assessment & Plan: 1 BM with some blood on 01/31, was impacted, otherwise normal. H/H stable, HDS Daily CBC, trend UTI (urinary tract infection) 01/31/2021 Last Assessment & Plan: UA and UC positive Bactrim for 3 days- last dose today WBC improving Hyponatremia 01/29/2021 10/15/2021 Last Assessment & Plan: Stabilizing. Na tab decreased to 2g TID Trend BMP daily Delirium 01/24/2021 10/15/2021 Last Assessment & Plan: Seroquel 12.5mg HS Nursing delirium protocol Normalize sleep/wake cycle. Continue melatonin 3mg/HS Leukocytosis 01/23/2021 01/25/2021 Last Assessment & Plan: Likely reactive, WBC: 14.9, afebrile, likely reactive to aneurysm rupture Procal normal, CXR without clear infiltrate -monitor off ABX -trend WBC/temp curve, downtredning Obesity, Class I, BMI 30-34.9 01/23/2021 Last Assessment & Plan: Evaluating and treating per NT recs Elevated lactic acid level 01/23/202101/25 Last Assessment & Plan: Post procedure vs. 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 Continue nimodipine until DC Keep normovolemic. Ambulate in unit. PT/OT/PMR: AR Respiratory insufficiency 01/22/20212020 Last Assessment & Plan: Extubated by anaesthesia prior to arrival Currently tolerating 8L simple mask -supplemental oxygen as needed to maintain SpO2>94%, wean to [place] today -PT/OT/OOB as tolerated Obstructive hydrocephalus 01/22/20212021 Last Assessment & Plan: 01/30 EVD removed Repeat CTH this AM stable. 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 Actinic Damage///Sun-Damaged Skin 08/14/2009 10/21/2014 Solar lentigo 08/14/2009 10/21/2014 Open wound(s) (multiple) of unspecified site(s), without mention of complication 07/04/2008 10/21/2014 Rash and other nonspecific skin eruption 009 10/21/2014 Unspecified disorder of skin and subcutaneous ti ssue 06/22/2008 10/21/2014 Localized superficial swelling, mass, or lump 10/21/2014 Degenerative skin disorder 05/13/200810/21 DERMATOSES NOS///DYSCHROMIA OTHER 05/13/2008 10/21/2014 Other specified dermatoses 05/13/200810/21 Neoplasm of uncertain behavior of skin 9 10/21/2014 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 05/13/2008 10/21/2014 Other seborrheic keratosis 05/13/200810/21 ANGIOMA///NEVUS, NON-NEOPLASTIC 05/13/2008 10/21/2014 NEVUS////BENIGN MAAME SKIN TRUNK 05/13/2008 0 10/21/2014 Benign neoplasm of colon 08/12/2007 015 Unspecified constipation 08/12/2007 015 Nonspecific abnormal finding in stool contents 0 08/12/2007 10/21/2014 Internal hemorrhoids without mention of complica tion 08/12/2007 10/21/2014 Varicose veins of other sites Lumbago 10/21/2014 Degeneration of intervertebral disc, site unspec ified 10/21/2014 Essential hypertension Last Assessment & Plan: SBP <160 M>65 Continue home Atenolol 50 mg daily Lisinopril increased to 20mg daily prn hydralazine/labetalol Dysfunction of eustachian tube 0 10/21/2014 documented as of this encounter (statuses as of 10/23/2021) [facility]01-05-2022 History of Past illness Narrative* Problem Noted Date Resolved Date Dehydration 05/02/2021 10/15/2021 Urinary tract infection asso ciated with catheterization of urinary tract 05/02/2021 10/15/2021 Gait difficulty 04/09/2021 07/19/2021 General weakness 04/09/2021 07/19/2021 Melena 01/31/2021 02/01/2021 Last Assessment & Plan: 1 BM with some blood on 01/31, was impacted, otherwise normal. H/H stable, HDS Daily CBC, trend UTI (urinary tract infection) 01/31/2021 Last Assessment & Plan: UA and UC positive Bactrim for 3 days- last dose today WBC improving Hyponatremia 01/29/2021 10/15/2021 Last Assessment & Plan: Stabilizing. Na tab decreased to 2g TID Trend BMP daily Delirium 01/24/2021 10/15/2021 Last Assessment & Plan: Seroquel 12.5mg HS Nursing delirium protocol Normalize sleep/wake cycle. Continue melatonin 3mg/HS Leukocytosis 01/23/2021 01/25/2021 Last Assessment & Plan: Likely reactive, WBC: 14.9, afebrile, likely reactive to aneurysm rupture Procal normal, CXR without clear infiltrate -monitor off ABX -trend WBC/temp curve, downtredning Obesity, Class I, BMI 30-34.9 01/23/2021 Last Assessment & Plan: Evaluating and treating per NT recs Elevated lactic acid level 01/23/202101/25 Last Assessment & Plan: Post procedure vs. 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 Continue nimodipine until DC Keep normovolemic. Ambulate in unit. PT/OT/PMR: AR Respiratory insufficiency 01/22/20212020 Last Assessment & Plan: Extubated by anaesthesia prior to arrival Currently tolerating 8L simple mask -supplemental oxygen as needed to maintain SpO2>94%, wean to [place] today -PT/OT/OOB as tolerated Obstructive hydrocephalus 01/22/20212021 Last Assessment & Plan: 01/30 EVD removed Repeat CTH this AM stable. 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 Actinic Damage///Sun-Damaged Skin 08/14/2009 10/21/2014 Solar lentigo 08/14/2009 10/21/2014 Open wound(s) (multiple) of unspecified site(s), without mention of complication 07/04/2008 10/21/2014 Rash and other nonspecific skin eruption 009 10/21/2014 Unspecified disorder of skin and subcutaneous ti ssue 06/22/2008 10/21/2014 Localized superficial swelling, mass, or lump 10/21/2014 Degenerative skin disorder 05/13/200810/21 DERMATOSES NOS///DYSCHROMIA OTHER 05/13/2008 10/21/2014 Other specified dermatoses 05/13/200810/21 Neoplasm of uncertain behavior of skin 9 10/21/2014 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 05/13/2008 10/21/2014 Other seborrheic keratosis 05/13/200810/21 ANGIOMA///NEVUS, NON-NEOPLASTIC 05/13/2008 10/21/2014 NEVUS////BENIGN MAAME SKIN TRUNK 05/13/2008 0 10/21/2014 Benign neoplasm of colon 08/12/2007 015 Unspecified constipation 08/12/2007 015 Nonspecific abnormal finding in stool contents 0 08/12/2007 10/21/2014 Internal hemorrhoids without mention of complica tion 08/12/2007 10/21/2014 Varicose veins of other sites Lumbago 10/21/2014 Degeneration of intervertebral disc, site unspec ified 10/21/2014 Essential hypertension Last Assessment & Plan: SBP <160 M>65 Continue home Atenolol 50 mg daily Lisinopril increased to 20mg daily prn hydralazine/labetalol Dysfunction of eustachian tube 0 10/21/2014 documented as of this encounter (statuses as of 10/31/2021) [facility]01-05-2022 History of Past illness Narrative* Problem Noted Date Resolved Date Dehydration 05/02/2021 10/15/2021 Urinary tract infection asso ciated with catheterization of urinary tract 05/02/2021 10/15/2021 Gait difficulty 04/09/2021 07/19/2021 General weakness 04/09/2021 07/19/2021 Melena 01/31/2021 02/01/2021 Last Assessment & Plan: 1 BM with some blood on 01/31, was impacted, otherwise normal. H/H stable, HDS Daily CBC, trend UTI (urinary tract infection) 01/31/2021 Last Assessment & Plan: UA and UC positive Bactrim for 3 days- last dose today WBC improving Hyponatremia 01/29/2021 10/15/2021 Last Assessment & Plan: Stabilizing. Na tab decreased to 2g TID Trend BMP daily Delirium 01/24/2021 10/15/2021 Last Assessment & Plan: Seroquel 12.5mg HS Nursing delirium protocol Normalize sleep/wake cycle. Continue melatonin 3mg/HS Leukocytosis 01/23/2021 01/25/2021 Last Assessment & Plan: Likely reactive, WBC: 14.9, afebrile, likely reactive to aneurysm rupture Procal normal, CXR without clear infiltrate -monitor off ABX -trend WBC/temp curve, downtredning Obesity, Class I, BMI 30-34.9 01/23/2021 Last Assessment & Plan: Evaluating and treating per NT recs Elevated lactic acid level 01/23/202101/25 Last Assessment & Plan: Post procedure vs. 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 Continue nimodipine until DC Keep normovolemic. Ambulate in unit. PT/OT/PMR: AR Respiratory insufficiency 01/22/20212020 Last Assessment & Plan: Extubated by anaesthesia prior to arrival Currently tolerating 8L simple mask -supplemental oxygen as needed to maintain SpO2>94%, wean to [place] today -PT/OT/OOB as tolerated Obstructive hydrocephalus 01/22/20212021 Last Assessment & Plan: 01/30 EVD removed Repeat CTH this AM stable. 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 Actinic Damage///Sun-Damaged Skin 08/14/2009 10/21/2014 Solar lentigo 08/14/2009 10/21/2014 Open wound(s) (multiple) of unspecified site(s), without mention of complication 07/04/2008 10/21/2014 Rash and other nonspecific skin eruption 009 10/21/2014 Unspecified disorder of skin and subcutaneous ti ssue 06/22/2008 10/21/2014 Localized superficial swelling, mass, or lump 10/21/2014 Degenerative skin disorder 05/13/200810/21 DERMATOSES NOS///DYSCHROMIA OTHER 05/13/2008 10/21/2014 Other specified dermatoses 05/13/200810/21 Neoplasm of uncertain behavior of skin 9 10/21/2014 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 05/13/2008 10/21/2014 Other seborrheic keratosis 05/13/200810/21 ANGIOMA///NEVUS, NON-NEOPLASTIC 05/13/2008 10/21/2014 NEVUS////BENIGN MAAME SKIN TRUNK 05/13/2008 0 10/21/2014 Benign neoplasm of colon 08/12/2007 015 Unspecified constipation 08/12/2007 015 Nonspecific abnormal finding in stool contents 0 08/12/2007 10/21/2014 Internal hemorrhoids without mention of complica tion 08/12/2007 10/21/2014 Varicose veins of other sites Lumbago 10/21/2014 Degeneration of intervertebral disc, site unspec ified 10/21/2014 Essential hypertension Last Assessment & Plan: SBP <160 M>65 Continue home Atenolol 50 mg daily Lisinopril increased to 20mg daily prn hydralazine/labetalol Dysfunction of eustachian tube 0 10/21/2014 documented as of this encounter (statuses as of 11/13/2021) [facility]01-05-2022 History of Past illness Narrative* Problem Noted Date Resolved Date Dehydration 05/02/2021 10/15/2021 Urinary tract infection asso ciated with catheterization of urinary tract 05/02/2021 10/15/2021 Gait difficulty 04/09/2021 07/19/2021 General weakness 04/09/2021 07/19/2021 Melena 01/31/2021 02/01/2021 Last Assessment & Plan: 1 BM with some blood on 01/31, was impacted, otherwise normal. H/H stable, HDS Daily CBC, trend UTI (urinary tract infection) 01/31/2021 Last Assessment & Plan: UA and UC positive Bactrim for 3 days- last dose today WBC improving Hyponatremia 01/29/2021 10/15/2021 Last Assessment & Plan: Stabilizing. Na tab decreased to 2g TID Trend BMP daily Delirium 01/24/2021 10/15/2021 Last Assessment & Plan: Seroquel 12.5mg HS Nursing delirium protocol Normalize sleep/wake cycle. Continue melatonin 3mg/HS Leukocytosis 01/23/2021 01/25/2021 Last Assessment & Plan: Likely reactive, WBC: 14.9, afebrile, likely reactive to aneurysm rupture Procal normal, CXR without clear infiltrate -monitor off ABX -trend WBC/temp curve, downtredning Obesity, Class I, BMI 30-34.9 01/23/2021 Last Assessment & Plan: Evaluating and treating per NT recs Elevated lactic acid level 01/23/202101/25 Last Assessment & Plan: Post procedure vs. 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 Continue nimodipine until DC Keep normovolemic. Ambulate in unit. PT/OT/PMR: AR Respiratory insufficiency 01/22/20212020 Last Assessment & Plan: Extubated by anaesthesia prior to arrival Currently tolerating 8L simple mask -supplemental oxygen as needed to maintain SpO2>94%, wean to [place] today -PT/OT/OOB as tolerated Obstructive hydrocephalus 01/22/20212021 Last Assessment & Plan: 01/30 EVD removed Repeat CTH this AM stable. 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 Actinic Damage///Sun-Damaged Skin 08/14/2009 10/21/2014 Solar lentigo 08/14/2009 10/21/2014 Open wound(s) (multiple) of unspecified site(s), without mention of complication 07/04/2008 10/21/2014 Rash and other nonspecific skin eruption 009 10/21/2014 Unspecified disorder of skin and subcutaneous ti ssue 06/22/2008 10/21/2014 Localized superficial swelling, mass, or lump 10/21/2014 Degenerative skin disorder 05/13/200810/21 DERMATOSES NOS///DYSCHROMIA OTHER 05/13/2008 10/21/2014 Other specified dermatoses 05/13/200810/21 Neoplasm of uncertain behavior of skin 9 10/21/2014 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 05/13/2008 10/21/2014 Other seborrheic keratosis 05/13/200810/21 ANGIOMA///NEVUS, NON-NEOPLASTIC 05/13/2008 10/21/2014 NEVUS////BENIGN MAAME SKIN TRUNK 05/13/2008 0 10/21/2014 Benign neoplasm of colon 08/12/2007 015 Unspecified constipation 08/12/2007 015 Nonspecific abnormal finding in stool contents 0 08/12/2007 10/21/2014 Internal hemorrhoids without mention of complica tion 08/12/2007 10/21/2014 Varicose veins of other sites Lumbago 10/21/2014 Degeneration of intervertebral disc, site unspec ified 10/21/2014 Essential hypertension Last Assessment & Plan: SBP <160 M>65 Continue home Atenolol 50 mg daily Lisinopril increased to 20mg daily prn hydralazine/labetalol Dysfunction of eustachian tube 0 10/21/2014 documented as of this encounter (statuses as of 11/15/2021) [facility]01-05-2022 History of Past illness Narrative* Problem Noted Date Resolved Date Dehydration 05/02/2021 10/15/2021 Urinary tract infection asso ciated with catheterization of urinary tract 05/02/2021 10/15/2021 Gait difficulty 04/09/2021 07/19/2021 General weakness 04/09/2021 07/19/2021 Melena 01/31/2021 02/01/2021 Last Assessment & Plan: 1 BM with some blood on 01/31, was impacted, otherwise normal. H/H stable, HDS Daily CBC, trend UTI (urinary tract infection) 01/31/2021 Last Assessment & Plan: UA and UC positive Bactrim for 3 days- last dose today WBC improving Hyponatremia 01/29/2021 10/15/2021 Last Assessment & Plan: Stabilizing. Na tab decreased to 2g TID Trend BMP daily Delirium 01/24/2021 10/15/2021 Last Assessment & Plan: Seroquel 12.5mg HS Nursing delirium protocol Normalize sleep/wake cycle. Continue melatonin 3mg/HS Leukocytosis 01/23/2021 01/25/2021 Last Assessment & Plan: Likely reactive, WBC: 14.9, afebrile, likely reactive to aneurysm rupture Procal normal, CXR without clear infiltrate -monitor off ABX -trend WBC/temp curve, downtredning Obesity, Class I, BMI 30-34.9 01/23/2021 Last Assessment & Plan: Evaluating and treating per NT recs Elevated lactic acid level 01/23/202101/25 Last Assessment & Plan: Post procedure vs. 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 Continue nimodipine until DC Keep normovolemic. Ambulate in unit. PT/OT/PMR: AR Respiratory insufficiency 01/22/20212020 Last Assessment & Plan: Extubated by anaesthesia prior to arrival Currently tolerating 8L simple mask -supplemental oxygen as needed to maintain SpO2>94%, wean to [place] today -PT/OT/OOB as tolerated Obstructive hydrocephalus 01/22/20212021 Last Assessment & Plan: 01/30 EVD removed Repeat CTH this AM stable. 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 Actinic Damage///Sun-Damaged Skin 08/14/2009 10/21/2014 Solar lentigo 08/14/2009 10/21/2014 Open wound(s) (multiple) of unspecified site(s), without mention of complication 07/04/2008 10/21/2014 Rash and other nonspecific skin eruption 009 10/21/2014 Unspecified disorder of skin and subcutaneous ti ssue 06/22/2008 10/21/2014 Localized superficial swelling, mass, or lump 10/21/2014 Degenerative skin disorder 05/13/200810/21 DERMATOSES NOS///DYSCHROMIA OTHER 05/13/2008 10/21/2014 Other specified dermatoses 05/13/200810/21 Neoplasm of uncertain behavior of skin 9 10/21/2014 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 05/13/2008 10/21/2014 Other seborrheic keratosis 05/13/200810/21 ANGIOMA///NEVUS, NON-NEOPLASTIC 05/13/2008 10/21/2014 NEVUS////BENIGN MAAME SKIN TRUNK 05/13/2008 0 10/21/2014 Benign neoplasm of colon 08/12/2007 015 Unspecified constipation 08/12/2007 015 Nonspecific abnormal finding in stool contents 0 08/12/2007 10/21/2014 Internal hemorrhoids without mention of complica tion 08/12/2007 10/21/2014 Varicose veins of other sites Lumbago 10/21/2014 Degeneration of intervertebral disc, site unspec ified 10/21/2014 Essential hypertension Last Assessment & Plan: SBP <160 M>65 Continue home Atenolol 50 mg daily Lisinopril increased to 20mg daily prn hydralazine/labetalol Dysfunction of eustachian tube 0 10/21/2014 documented as of this encounter (statuses as of 11/20/2021) [facility]01-05-2022 History of Past illness Narrative* Problem Noted Date Resolved Date Dehydration 05/02/2021 10/15/2021 Urinary tract infection asso ciated with catheterization of urinary tract 05/02/2021 10/15/2021 Gait difficulty 04/09/2021 07/19/2021 General weakness 04/09/2021 07/19/2021 Melena 01/31/2021 02/01/2021 Last Assessment & Plan: 1 BM with some blood on 01/31, was impacted, otherwise normal. H/H stable, HDS Daily CBC, trend UTI (urinary tract infection) 01/31/2021 Last Assessment & Plan: UA and UC positive Bactrim for 3 days- last dose today WBC improving Hyponatremia 01/29/2021 10/15/2021 Last Assessment & Plan: Stabilizing. Na tab decreased to 2g TID Trend BMP daily Delirium 01/24/2021 10/15/2021 Last Assessment & Plan: Seroquel 12.5mg HS Nursing delirium protocol Normalize sleep/wake cycle. Continue melatonin 3mg/HS Leukocytosis 01/23/2021 01/25/2021 Last Assessment & Plan: Likely reactive, WBC: 14.9, afebrile, likely reactive to aneurysm rupture Procal normal, CXR without clear infiltrate -monitor off ABX -trend WBC/temp curve, downtredning Obesity, Class I, BMI 30-34.9 01/23/2021 Last Assessment & Plan: Evaluating and treating per NT recs Elevated lactic acid level 01/23/202101/25 Last Assessment & Plan: Post procedure vs. 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 Continue nimodipine until DC Keep normovolemic. Ambulate in unit. PT/OT/PMR: AR Respiratory insufficiency 01/22/20212020 Last Assessment & Plan: Extubated by anaesthesia prior to arrival Currently tolerating 8L simple mask -supplemental oxygen as needed to maintain SpO2>94%, wean to [place] today -PT/OT/OOB as tolerated Obstructive hydrocephalus 01/22/20212021 Last Assessment & Plan: 01/30 EVD removed Repeat CTH this AM stable. 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 Actinic Damage///Sun-Damaged Skin 08/14/2009 10/21/2014 Solar lentigo 08/14/2009 10/21/2014 Open wound(s) (multiple) of unspecified site(s), without mention of complication 07/04/2008 10/21/2014 Rash and other nonspecific skin eruption 009 10/21/2014 Unspecified disorder of skin and subcutaneous ti ssue 06/22/2008 10/21/2014 Localized superficial swelling, mass, or lump 10/21/2014 Degenerative skin disorder 05/13/200810/21 DERMATOSES NOS///DYSCHROMIA OTHER 05/13/2008 10/21/2014 Other specified dermatoses 05/13/200810/21 Neoplasm of uncertain behavior of skin 9 10/21/2014 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 05/13/2008 10/21/2014 Other seborrheic keratosis 05/13/200810/21 ANGIOMA///NEVUS, NON-NEOPLASTIC 05/13/2008 10/21/2014 NEVUS////BENIGN MAAME SKIN TRUNK 05/13/2008 0 10/21/2014 Benign neoplasm of colon 08/12/2007 015 Unspecified constipation 08/12/2007 015 Nonspecific abnormal finding in stool contents 0 08/12/2007 10/21/2014 Internal hemorrhoids without mention of complica tion 08/12/2007 10/21/2014 Varicose veins of other sites Lumbago 10/21/2014 Degeneration of intervertebral disc, site unspec ified 10/21/2014 Essential hypertension Last Assessment & Plan: SBP <160 M>65 Continue home Atenolol 50 mg daily Lisinopril increased to 20mg daily prn hydralazine/labetalol Dysfunction of eustachian tube 0 10/21/2014 documented as of this encounter (statuses as of 11/22/2021) [facility]01-05-2022 History of Past illness Narrative* Problem Noted Date Resolved Date Dehydration 05/02/2021 10/15/2021 Urinary tract infection asso ciated with catheterization of urinary tract 05/02/2021 10/15/2021 Gait difficulty 04/09/2021 07/19/2021 General weakness 04/09/2021 07/19/2021 Melena 01/31/2021 02/01/2021 Last Assessment & Plan: 1 BM with some blood on 01/31, was impacted, otherwise normal. H/H stable, HDS Daily CBC, trend UTI (urinary tract infection) 01/31/2021 Last Assessment & Plan: UA and UC positive Bactrim for 3 days- last dose today WBC improving Hyponatremia 01/29/2021 10/15/2021 Last Assessment & Plan: Stabilizing. Na tab decreased to 2g TID Trend BMP daily Delirium 01/24/2021 10/15/2021 Last Assessment & Plan: Seroquel 12.5mg HS Nursing delirium protocol Normalize sleep/wake cycle. Continue melatonin 3mg/HS Leukocytosis 01/23/2021 01/25/2021 Last Assessment & Plan: Likely reactive, WBC: 14.9, afebrile, likely reactive to aneurysm rupture Procal normal, CXR without clear infiltrate -monitor off ABX -trend WBC/temp curve, downtredning Obesity, Class I, BMI 30-34.9 01/23/2021 Last Assessment & Plan: Evaluating and treating per NT recs Elevated lactic acid level 01/23/202101/25 Last Assessment & Plan: Post procedure vs. 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 Continue nimodipine until DC Keep normovolemic. Ambulate in unit. PT/OT/PMR: AR Respiratory insufficiency 01/22/20212020 Last Assessment & Plan: Extubated by anaesthesia prior to arrival Currently tolerating 8L simple mask -supplemental oxygen as needed to maintain SpO2>94%, wean to [place] today -PT/OT/OOB as tolerated Obstructive hydrocephalus 01/22/20212021 Last Assessment & Plan: 01/30 EVD removed Repeat CTH this AM stable. 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 Actinic Damage///Sun-Damaged Skin 08/14/2009 10/21/2014 Solar lentigo 08/14/2009 10/21/2014 Open wound(s) (multiple) of unspecified site(s), without mention of complication 07/04/2008 10/21/2014 Rash and other nonspecific skin eruption 009 10/21/2014 Unspecified disorder of skin and subcutaneous ti ssue 06/22/2008 10/21/2014 Localized superficial swelling, mass, or lump 10/21/2014 Degenerative skin disorder 05/13/200810/21 DERMATOSES NOS///DYSCHROMIA OTHER 05/13/2008 10/21/2014 Other specified dermatoses 05/13/200810/21 Neoplasm of uncertain behavior of skin 9 10/21/2014 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 05/13/2008 10/21/2014 Other seborrheic keratosis 05/13/200810/21 ANGIOMA///NEVUS, NON-NEOPLASTIC 05/13/2008 10/21/2014 NEVUS////BENIGN MAAME SKIN TRUNK 05/13/2008 0 10/21/2014 Benign neoplasm of colon 08/12/2007 015 Unspecified constipation 08/12/2007 015 Nonspecific abnormal finding in stool contents 0 08/12/2007 10/21/2014 Internal hemorrhoids without mention of complica tion 08/12/2007 10/21/2014 Varicose veins of other sites Lumbago 10/21/2014 Degeneration of intervertebral disc, site unspec ified 10/21/2014 Essential hypertension Last Assessment & Plan: SBP <160 M>65 Continue home Atenolol 50 mg daily Lisinopril increased to 20mg daily prn hydralazine/labetalol Dysfunction of eustachian tube 0 10/21/2014 documented as of this encounter (statuses as of 11/23/2021) [facility]01-05-2022 History of Past illness Narrative* Problem Noted Date Resolved Date Dehydration 05/02/2021 10/15/2021 Urinary tract infection asso ciated with catheterization of urinary tract 05/02/2021 10/15/2021 Gait difficulty 04/09/2021 07/19/2021 General weakness 04/09/2021 07/19/2021 Melena 01/31/2021 02/01/2021 Last Assessment & Plan: 1 BM with some blood on 01/31, was impacted, otherwise normal. H/H stable, HDS Daily CBC, trend UTI (urinary tract infection) 01/31/2021 Last Assessment & Plan: UA and UC positive Bactrim for 3 days- last dose today WBC improving Hyponatremia 01/29/2021 10/15/2021 Last Assessment & Plan: Stabilizing. Na tab decreased to 2g TID Trend BMP daily Delirium 01/24/2021 10/15/2021 Last Assessment & Plan: Seroquel 12.5mg HS Nursing delirium protocol Normalize sleep/wake cycle. Continue melatonin 3mg/HS Leukocytosis 01/23/2021 01/25/2021 Last Assessment & Plan: Likely reactive, WBC: 14.9, afebrile, likely reactive to aneurysm rupture Procal normal, CXR without clear infiltrate -monitor off ABX -trend WBC/temp curve, downtredning Obesity, Class I, BMI 30-34.9 01/23/2021 Last Assessment & Plan: Evaluating and treating per NT recs Elevated lactic acid level 01/23/202101/25 Last Assessment & Plan: Post procedure vs. 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 Continue nimodipine until DC Keep normovolemic. Ambulate in unit. PT/OT/PMR: AR Respiratory insufficiency 01/22/20212020 Last Assessment & Plan: Extubated by anaesthesia prior to arrival Currently tolerating 8L simple mask -supplemental oxygen as needed to maintain SpO2>94%, wean to [place] today -PT/OT/OOB as tolerated Obstructive hydrocephalus 01/22/20212021 Last Assessment & Plan: 01/30 EVD removed Repeat CTH this AM stable. 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 Actinic Damage///Sun-Damaged Skin 08/14/2009 10/21/2014 Solar lentigo 08/14/2009 10/21/2014 Open wound(s) (multiple) of unspecified site(s), without mention of complication 07/04/2008 10/21/2014 Rash and other nonspecific skin eruption 009 10/21/2014 Unspecified disorder of skin and subcutaneous ti ssue 06/22/2008 10/21/2014 Localized superficial swelling, mass, or lump 10/21/2014 Degenerative skin disorder 05/13/200810/21 DERMATOSES NOS///DYSCHROMIA OTHER 05/13/2008 10/21/2014 Other specified dermatoses 05/13/200810/21 Neoplasm of uncertain behavior of skin 9 10/21/2014 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 05/13/2008 10/21/2014 Other seborrheic keratosis 05/13/200810/21 ANGIOMA///NEVUS, NON-NEOPLASTIC 05/13/2008 10/21/2014 NEVUS////BENIGN MAAME SKIN TRUNK 05/13/2008 0 10/21/2014 Benign neoplasm of colon 08/12/2007 015 Unspecified constipation 08/12/2007 015 Nonspecific abnormal finding in stool contents 0 08/12/2007 10/21/2014 Internal hemorrhoids without mention of complica tion 08/12/2007 10/21/2014 Varicose veins of other sites Lumbago 10/21/2014 Degeneration of intervertebral disc, site unspec ified 10/21/2014 Essential hypertension Last Assessment & Plan: SBP <160 M>65 Continue home Atenolol 50 mg daily Lisinopril increased to 20mg daily prn hydralazine/labetalol Dysfunction of eustachian tube 0 10/21/2014 documented as of this encounter (statuses as of 11/26/2021) [facility]01-05-2022 History of Past illness Narrative* Problem Noted Date Resolved Date Dehydration 05/02/2021 10/15/2021 Urinary tract infection asso ciated with catheterization of urinary tract 05/02/2021 10/15/2021 Gait difficulty 04/09/2021 07/19/2021 General weakness 04/09/2021 07/19/2021 Melena 01/31/2021 02/01/2021 Last Assessment & Plan: 1 BM with some blood on 01/31, was impacted, otherwise normal. H/H stable, HDS Daily CBC, trend UTI (urinary tract infection) 01/31/2021 Last Assessment & Plan: UA and UC positive Bactrim for 3 days- last dose today WBC improving Hyponatremia 01/29/2021 10/15/2021 Last Assessment & Plan: Stabilizing. Na tab decreased to 2g TID Trend BMP daily Delirium 01/24/2021 10/15/2021 Last Assessment & Plan: Seroquel 12.5mg HS Nursing delirium protocol Normalize sleep/wake cycle. Continue melatonin 3mg/HS Leukocytosis 01/23/2021 01/25/2021 Last Assessment & Plan: Likely reactive, WBC: 14.9, afebrile, likely reactive to aneurysm rupture Procal normal, CXR without clear infiltrate -monitor off ABX -trend WBC/temp curve, downtredning Obesity, Class I, BMI 30-34.9 01/23/2021 Last Assessment & Plan: Evaluating and treating per NT recs Elevated lactic acid level 01/23/202101/25 Last Assessment & Plan: Post procedure vs. 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 Continue nimodipine until DC Keep normovolemic. Ambulate in unit. PT/OT/PMR: AR Respiratory insufficiency 01/22/20212020 Last Assessment & Plan: Extubated by anaesthesia prior to arrival Currently tolerating 8L simple mask -supplemental oxygen as needed to maintain SpO2>94%, wean to [place] today -PT/OT/OOB as tolerated Obstructive hydrocephalus 01/22/20212021 Last Assessment & Plan: 01/30 EVD removed Repeat CTH this AM stable. 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 Actinic Damage///Sun-Damaged Skin 08/14/2009 10/21/2014 Solar lentigo 08/14/2009 10/21/2014 Open wound(s) (multiple) of unspecified site(s), without mention of complication 07/04/2008 10/21/2014 Rash and other nonspecific skin eruption 009 10/21/2014 Unspecified disorder of skin and subcutaneous ti ssue 06/22/2008 10/21/2014 Localized superficial swelling, mass, or lump 10/21/2014 Degenerative skin disorder 05/13/200810/21 DERMATOSES NOS///DYSCHROMIA OTHER 05/13/2008 10/21/2014 Other specified dermatoses 05/13/200810/21 Neoplasm of uncertain behavior of skin 9 10/21/2014 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 05/13/2008 10/21/2014 Other seborrheic keratosis 05/13/200810/21 ANGIOMA///NEVUS, NON-NEOPLASTIC 05/13/2008 10/21/2014 NEVUS////BENIGN MAAME SKIN TRUNK 05/13/2008 0 10/21/2014 Benign neoplasm of colon 08/12/2007 015 Unspecified constipation 08/12/2007 015 Nonspecific abnormal finding in stool contents 0 08/12/2007 10/21/2014 Internal hemorrhoids without mention of complica tion 08/12/2007 10/21/2014 Varicose veins of other sites Lumbago 10/21/2014 Degeneration of intervertebral disc, site unspec ified 10/21/2014 Essential hypertension Last Assessment & Plan: SBP <160 M>65 Continue home Atenolol 50 mg daily Lisinopril increased to 20mg daily prn hydralazine/labetalol Dysfunction of eustachian tube 0 10/21/2014 documented as of this encounter (statuses as of 11/28/2021) [facility]01-05-2022 History of Past illness Narrative* Problem Noted Date Resolved Date Dehydration 05/02/2021 10/15/2021 Urinary tract infection asso ciated with catheterization of urinary tract 05/02/2021 10/15/2021 Gait difficulty 04/09/2021 07/19/2021 General weakness 04/09/2021 07/19/2021 Melena 01/31/2021 02/01/2021 Last Assessment & Plan: 1 BM with some blood on 01/31, was impacted, otherwise normal. H/H stable, HDS Daily CBC, trend UTI (urinary tract infection) 01/31/2021 Last Assessment & Plan: UA and UC positive Bactrim for 3 days- last dose today WBC improving Hyponatremia 01/29/2021 10/15/2021 Last Assessment & Plan: Stabilizing. Na tab decreased to 2g TID Trend BMP daily Delirium 01/24/2021 10/15/2021 Last Assessment & Plan: Seroquel 12.5mg HS Nursing delirium protocol Normalize sleep/wake cycle. Continue melatonin 3mg/HS Leukocytosis 01/23/2021 01/25/2021 Last Assessment & Plan: Likely reactive, WBC: 14.9, afebrile, likely reactive to aneurysm rupture Procal normal, CXR without clear infiltrate -monitor off ABX -trend WBC/temp curve, downtredning Obesity, Class I, BMI 30-34.9 01/23/2021 Last Assessment & Plan: Evaluating and treating per NT recs Elevated lactic acid level 01/23/202101/25 Last Assessment & Plan: Post procedure vs. 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 Continue nimodipine until DC Keep normovolemic. Ambulate in unit. PT/OT/PMR: AR Respiratory insufficiency 01/22/20212020 Last Assessment & Plan: Extubated by anaesthesia prior to arrival Currently tolerating 8L simple mask -supplemental oxygen as needed to maintain SpO2>94%, wean to [place] today -PT/OT/OOB as tolerated Obstructive hydrocephalus 01/22/20212021 Last Assessment & Plan: 01/30 EVD removed Repeat CTH this AM stable. 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 Actinic Damage///Sun-Damaged Skin 08/14/2009 10/21/2014 Solar lentigo 08/14/2009 10/21/2014 Open wound(s) (multiple) of unspecified site(s), without mention of complication 07/04/2008 10/21/2014 Rash and other nonspecific skin eruption 009 10/21/2014 Unspecified disorder of skin and subcutaneous ti ssue 06/22/2008 10/21/2014 Localized superficial swelling, mass, or lump 10/21/2014 Degenerative skin disorder 05/13/200810/21 DERMATOSES NOS///DYSCHROMIA OTHER 05/13/2008 10/21/2014 Other specified dermatoses 05/13/200810/21 Neoplasm of uncertain behavior of skin 9 10/21/2014 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 05/13/2008 10/21/2014 Other seborrheic keratosis 05/13/200810/21 ANGIOMA///NEVUS, NON-NEOPLASTIC 05/13/2008 10/21/2014 NEVUS////BENIGN MAAME SKIN TRUNK 05/13/2008 0 10/21/2014 Benign neoplasm of colon 08/12/2007 015 Unspecified constipation 08/12/2007 015 Nonspecific abnormal finding in stool contents 0 08/12/2007 10/21/2014 Internal hemorrhoids without mention of complica tion 08/12/2007 10/21/2014 Varicose veins of other sites Lumbago 10/21/2014 Degeneration of intervertebral disc, site unspec ified 10/21/2014 Essential hypertension Last Assessment & Plan: SBP <160 M>65 Continue home Atenolol 50 mg daily Lisinopril increased to 20mg daily prn hydralazine/labetalol Dysfunction of eustachian tube 0 10/21/2014 documented as of this encounter (statuses as of 11/29/2021) [facility]01-05-2022 History of Past illness Narrative* Problem Noted Date Resolved Date Dehydration 05/02/2021 10/15/2021 Urinary tract infection asso ciated with catheterization of urinary tract 05/02/2021 10/15/2021 Gait difficulty 04/09/2021 07/19/2021 General weakness 04/09/2021 07/19/2021 Melena 01/31/2021 02/01/2021 Last Assessment & Plan: 1 BM with some blood on 01/31, was impacted, otherwise normal. H/H stable, HDS Daily CBC, trend UTI (urinary tract infection) 01/31/2021 Last Assessment & Plan: UA and UC positive Bactrim for 3 days- last dose today WBC improving Hyponatremia 01/29/2021 10/15/2021 Last Assessment & Plan: Stabilizing. Na tab decreased to 2g TID Trend BMP daily Delirium 01/24/2021 10/15/2021 Last Assessment & Plan: Seroquel 12.5mg HS Nursing delirium protocol Normalize sleep/wake cycle. Continue melatonin 3mg/HS Leukocytosis 01/23/2021 01/25/2021 Last Assessment & Plan: Likely reactive, WBC: 14.9, afebrile, likely reactive to aneurysm rupture Procal normal, CXR without clear infiltrate -monitor off ABX -trend WBC/temp curve, downtredning Obesity, Class I, BMI 30-34.9 01/23/2021 Last Assessment & Plan: Evaluating and treating per NT recs Elevated lactic acid level 01/23/202101/25 Last Assessment & Plan: Post procedure vs. 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 Continue nimodipine until DC Keep normovolemic. Ambulate in unit. PT/OT/PMR: AR Respiratory insufficiency 01/22/20212020 Last Assessment & Plan: Extubated by anaesthesia prior to arrival Currently tolerating 8L simple mask -supplemental oxygen as needed to maintain SpO2>94%, wean to [place] today -PT/OT/OOB as tolerated Obstructive hydrocephalus 01/22/20212021 Last Assessment & Plan: 01/30 EVD removed Repeat CTH this AM stable. 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 Actinic Damage///Sun-Damaged Skin 08/14/2009 10/21/2014 Solar lentigo 08/14/2009 10/21/2014 Open wound(s) (multiple) of unspecified site(s), without mention of complication 07/04/2008 10/21/2014 Rash and other nonspecific skin eruption 009 10/21/2014 Unspecified disorder of skin and subcutaneous ti ssue 06/22/2008 10/21/2014 Localized superficial swelling, mass, or lump 10/21/2014 Degenerative skin disorder 05/13/200810/21 DERMATOSES NOS///DYSCHROMIA OTHER 05/13/2008 10/21/2014 Other specified dermatoses 05/13/200810/21 Neoplasm of uncertain behavior of skin 9 10/21/2014 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 05/13/2008 10/21/2014 Other seborrheic keratosis 05/13/200810/21 ANGIOMA///NEVUS, NON-NEOPLASTIC 05/13/2008 10/21/2014 NEVUS////BENIGN MAAME SKIN TRUNK 05/13/2008 0 10/21/2014 Benign neoplasm of colon 08/12/2007 015 Unspecified constipation 08/12/2007 015 Nonspecific abnormal finding in stool contents 0 08/12/2007 10/21/2014 Internal hemorrhoids without mention of complica tion 08/12/2007 10/21/2014 Varicose veins of other sites Lumbago 10/21/2014 Degeneration of intervertebral disc, site unspec ified 10/21/2014 Essential hypertension 2 Last Assessment & Plan: SBP <160 M>65 Continue home Atenolol 50 mg daily Lisinopril increased to 20mg daily prn hydralazine/labetalol Dysfunction of eustachian tube 0 10/21/2014 documented as of this encounter (statuses as of 11/30/2021) [facility]01-05-2022 History of Past illness Narrative* Problem Noted Date Resolved Date Dehydration 05/02/2021 10/15/2021 Urinary tract infection asso ciated with catheterization of urinary tract 05/02/2021 10/15/2021 Gait difficulty 04/09/2021 07/19/2021 General weakness 04/09/2021 07/19/2021 Melena 01/31/2021 02/01/2021 Last Assessment & Plan: 1 BM with some blood on 01/31, was impacted, otherwise normal. H/H stable, HDS Daily CBC, trend UTI (urinary tract infection) 01/31/2021 Last Assessment & Plan: UA and UC positive Bactrim for 3 days- last dose today WBC improving Hyponatremia 01/29/2021 10/15/2021 Last Assessment & Plan: Stabilizing. Na tab decreased to 2g TID Trend BMP daily Delirium 01/24/2021 10/15/2021 Last Assessment & Plan: Seroquel 12.5mg HS Nursing delirium protocol Normalize sleep/wake cycle. Continue melatonin 3mg/HS Leukocytosis 01/23/2021 01/25/2021 Last Assessment & Plan: Likely reactive, WBC: 14.9, afebrile, likely reactive to aneurysm rupture Procal normal, CXR without clear infiltrate -monitor off ABX -trend WBC/temp curve, downtredning Obesity, Class I, BMI 30-34.9 01/23/2021 Last Assessment & Plan: Evaluating and treating per NT recs Elevated lactic acid level 01/23/202101/25 Last Assessment & Plan: Post procedure vs. 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 Continue nimodipine until DC Keep normovolemic. Ambulate in unit. PT/OT/PMR: AR Respiratory insufficiency 01/22/20212020 Last Assessment & Plan: Extubated by anaesthesia prior to arrival Currently tolerating 8L simple mask -supplemental oxygen as needed to maintain SpO2>94%, wean to [place] today -PT/OT/OOB as tolerated Obstructive hydrocephalus 01/22/20212021 Last Assessment & Plan: 01/30 EVD removed Repeat CTH this AM stable. 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 Actinic Damage///Sun-Damaged Skin 08/14/2009 10/21/2014 Solar lentigo 08/14/2009 10/21/2014 Open wound(s) (multiple) of unspecified site(s), without mention of complication 07/04/2008 10/21/2014 Rash and other nonspecific skin eruption 009 10/21/2014 Unspecified disorder of skin and subcutaneous ti ssue 06/22/2008 10/21/2014 Localized superficial swelling, mass, or lump 10/21/2014 Degenerative skin disorder 05/13/200810/21 DERMATOSES NOS///DYSCHROMIA OTHER 05/13/2008 10/21/2014 Other specified dermatoses 05/13/200810/21 Neoplasm of uncertain behavior of skin 9 10/21/2014 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 05/13/2008 10/21/2014 Other seborrheic keratosis 05/13/200810/21 ANGIOMA///NEVUS, NON-NEOPLASTIC 05/13/2008 10/21/2014 NEVUS////BENIGN MAAME SKIN TRUNK 05/13/2008 0 10/21/2014 Benign neoplasm of colon 08/12/2007 015 Unspecified constipation 08/12/2007 015 Nonspecific abnormal finding in stool contents 0 08/12/2007 10/21/2014 Internal hemorrhoids without mention of complica tion 08/12/2007 10/21/2014 Varicose veins of other sites Lumbago 10/21/2014 Degeneration of intervertebral disc, site unspec ified 10/21/2014 Essential hypertension Last Assessment & Plan: SBP <160 M>65 Continue home Atenolol 50 mg daily Lisinopril increased to 20mg daily prn hydralazine/labetalol Dysfunction of eustachian tube 0 10/21/2014 documented as of this encounter (statuses as of 12/01/2021) [facility]01-[facility]-2022 History of Past illness Narrative* Problem Noted Date Resolved Date Dehydration 05/02/2021 10/15/2021 Urinary tract infection asso ciated with catheterization of urinary tract 05/02/2021 10/15/2021 Gait difficulty 04/09/2021 07/19/2021 General weakness 04/09/2021 07/19/2021 Melena 01/31/2021 02/01/2021 Last Assessment & Plan: 1 BM with some blood on 01/31, was impacted, otherwise normal. H/H stable, HDS Daily CBC, trend UTI (urinary tract infection) 01/31/2021 Last Assessment & Plan: UA and UC positive Bactrim for 3 days- last dose today WBC improving Hyponatremia 01/29/2021 10/15/2021 Last Assessment & Plan: Stabilizing. Na tab decreased to 2g TID Trend BMP daily Delirium 01/24/2021 10/15/2021 Last Assessment & Plan: Seroquel 12.5mg HS Nursing delirium protocol Normalize sleep/wake cycle. Continue melatonin 3mg/HS Leukocytosis 01/23/2021 01/25/2021 Last Assessment & Plan: Likely reactive, WBC: 14.9, afebrile, likely reactive to aneurysm rupture Procal normal, CXR without clear infiltrate -monitor off ABX -trend WBC/temp curve, downtredning Obesity, Class I, BMI 30-34.9 01/23/2021 Last Assessment & Plan: Evaluating and treating per NT recs Elevated lactic acid level 01/23/202101/25 Last Assessment & Plan: Post procedure vs. 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 Continue nimodipine until DC Keep normovolemic. Ambulate in unit. PT/OT/PMR: AR Respiratory insufficiency 01/22/20212020 Last Assessment & Plan: Extubated by anaesthesia prior to arrival Currently tolerating 8L simple mask -supplemental oxygen as needed to maintain SpO2>94%, wean to [place] today -PT/OT/OOB as tolerated Obstructive hydrocephalus 01/22/20212021 Last Assessment & Plan: 01/30 EVD removed Repeat CTH this AM stable. 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 Actinic Damage///Sun-Damaged Skin 08/14/2009 10/21/2014 Solar lentigo 08/14/2009 10/21/2014 Open wound(s) (multiple) of unspecified site(s), without mention of complication 07/04/2008 10/21/2014 Rash and other nonspecific skin eruption 009 10/21/2014 Unspecified disorder of skin and subcutaneous ti ssue 06/22/2008 10/21/2014 Localized superficial swelling, mass, or lump 10/21/2014 Degenerative skin disorder 05/13/200810/21 DERMATOSES NOS///DYSCHROMIA OTHER 05/13/2008 10/21/2014 Other specified dermatoses 05/13/200810/21 Neoplasm of uncertain behavior of skin 9 10/21/2014 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 05/13/2008 10/21/2014 Other seborrheic keratosis 05/13/200810/21 ANGIOMA///NEVUS, NON-NEOPLASTIC 05/13/2008 10/21/2014 NEVUS////BENIGN MAAME SKIN TRUNK 05/13/2008 0 10/21/2014 Benign neoplasm of colon 08/12/2007 015 Unspecified constipation 08/12/2007 015 Nonspecific abnormal finding in stool contents 0 08/12/2007 10/21/2014 Internal hemorrhoids without mention of complica tion 08/12/2007 10/21/2014 Varicose veins of other sites Lumbago 10/21/2014 Degeneration of intervertebral disc, site unspec ified 10/21/2014 Essential hypertension 2 Last Assessment & Plan: SBP <160 M>65 Continue home Atenolol 50 mg daily Lisinopril increased to 20mg daily prn hydralazine/labetalol Dysfunction of eustachian tube 0 10/21/2014 documented as of this encounter (statuses as of 12/03/2021) [facility]01-[facility]-2022 History of Past illness Narrative* Problem Noted Date Resolved Date Dehydration 05/02/2021 10/15/2021 Urinary tract infection asso ciated with catheterization of urinary tract 05/02/2021 10/15/2021 Gait difficulty 04/09/2021 07/19/2021 General weakness 04/09/2021 07/19/2021 Melena 01/31/2021 02/01/2021 Last Assessment & Plan: 1 BM with some blood on 01/31, was impacted, otherwise normal. H/H stable, HDS Daily CBC, trend UTI (urinary tract infection) 01/31/2021 Last Assessment & Plan: UA and UC positive Bactrim for 3 days- last dose today WBC improving Hyponatremia 01/29/2021 10/15/2021 Last Assessment & Plan: Stabilizing. Na tab decreased to 2g TID Trend BMP daily Delirium 01/24/2021 10/15/2021 Last Assessment & Plan: Seroquel 12.5mg HS Nursing delirium protocol Normalize sleep/wake cycle. Continue melatonin 3mg/HS Leukocytosis 01/23/2021 01/25/2021 Last Assessment & Plan: Likely reactive, WBC: 14.9, afebrile, likely reactive to aneurysm rupture Procal normal, CXR without clear infiltrate -monitor off ABX -trend WBC/temp curve, downtredning Obesity, Class I, BMI 30-34.9 01/23/2021 Last Assessment & Plan: Evaluating and treating per NT recs Elevated lactic acid level 01/23/202101/25 Last Assessment & Plan: Post procedure vs. 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 Continue nimodipine until DC Keep normovolemic. Ambulate in unit. PT/OT/PMR: AR Respiratory insufficiency 01/22/20212020 Last Assessment & Plan: Extubated by anaesthesia prior to arrival Currently tolerating 8L simple mask -supplemental oxygen as needed to maintain SpO2>94%, wean to [place] today -PT/OT/OOB as tolerated Obstructive hydrocephalus 01/22/20212021 Last Assessment & Plan: 01/30 EVD removed Repeat CTH this AM stable. 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 Actinic Damage///Sun-Damaged Skin 08/14/2009 10/21/2014 Solar lentigo 08/14/2009 10/21/2014 Open wound(s) (multiple) of unspecified site(s), without mention of complication 07/04/2008 10/21/2014 Rash and other nonspecific skin eruption 009 10/21/2014 Unspecified disorder of skin and subcutaneous ti ssue 06/22/2008 10/21/2014 Localized superficial swelling, mass, or lump 10/21/2014 Degenerative skin disorder 05/13/200810/21 DERMATOSES NOS///DYSCHROMIA OTHER 05/13/2008 10/21/2014 Other specified dermatoses 05/13/200810/21 Neoplasm of uncertain behavior of skin 9 10/21/2014 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 05/13/2008 10/21/2014 Other seborrheic keratosis 05/13/200810/21 ANGIOMA///NEVUS, NON-NEOPLASTIC 05/13/2008 10/21/2014 NEVUS////BENIGN MAAME SKIN TRUNK 05/13/2008 0 10/21/2014 Benign neoplasm of colon 08/12/2007 015 Unspecified constipation 08/12/2007 015 Nonspecific abnormal finding in stool contents 0 08/12/2007 10/21/2014 Internal hemorrhoids without mention of complica tion 08/12/2007 10/21/2014 Varicose veins of other sites Lumbago 10/21/2014 Degeneration of intervertebral disc, site unspec ified 10/21/2014 Essential hypertension Last Assessment & Plan: SBP <160 M>65 Continue home Atenolol 50 mg daily Lisinopril increased to 20mg daily prn hydralazine/labetalol Dysfunction of eustachian tube 0 10/21/2014 documented as of this encounter (statuses as of 12/03/2021) [facility]01-05-2022 History of Past illness Narrative* Problem Noted Date Resolved Date Dehydration 05/02/2021 10/15/2021 Urinary tract infection asso ciated with catheterization of urinary tract 05/02/2021 10/15/2021 Gait difficulty 04/09/2021 07/19/2021 General weakness 04/09/2021 07/19/2021 Melena 01/31/2021 02/01/2021 Last Assessment & Plan: 1 BM with some blood on 01/31, was impacted, otherwise normal. H/H stable, HDS Daily CBC, trend UTI (urinary tract infection) 01/31/2021 Last Assessment & Plan: UA and UC positive Bactrim for 3 days- last dose today WBC improving Hyponatremia 01/29/2021 10/15/2021 Last Assessment & Plan: Stabilizing. Na tab decreased to 2g TID Trend BMP daily Delirium 01/24/2021 10/15/2021 Last Assessment & Plan: Seroquel 12.5mg HS Nursing delirium protocol Normalize sleep/wake cycle. Continue melatonin 3mg/HS Leukocytosis 01/23/2021 01/25/2021 Last Assessment & Plan: Likely reactive, WBC: 14.9, afebrile, likely reactive to aneurysm rupture Procal normal, CXR without clear infiltrate -monitor off ABX -trend WBC/temp curve, downtredning Obesity, Class I, BMI 30-34.9 01/23/2021 Last Assessment & Plan: Evaluating and treating per NT recs Elevated lactic acid level 01/23/202101/25 Last Assessment & Plan: Post procedure vs. 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 Continue nimodipine until DC Keep normovolemic. Ambulate in unit. PT/OT/PMR: AR Respiratory insufficiency 01/22/20212020 Last Assessment & Plan: Extubated by anaesthesia prior to arrival Currently tolerating 8L simple mask -supplemental oxygen as needed to maintain SpO2>94%, wean to [place] today -PT/OT/OOB as tolerated Obstructive hydrocephalus 01/22/20212021 Last Assessment & Plan: 01/30 EVD removed Repeat CTH this AM stable. 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 Actinic Damage///Sun-Damaged Skin 08/14/2009 10/21/2014 Solar lentigo 08/14/2009 10/21/2014 Open wound(s) (multiple) of unspecified site(s), without mention of complication 07/04/2008 10/21/2014 Rash and other nonspecific skin eruption 009 10/21/2014 Unspecified disorder of skin and subcutaneous ti ssue 06/22/2008 10/21/2014 Localized superficial swelling, mass, or lump 10/21/2014 Degenerative skin disorder 05/13/200810/21 DERMATOSES NOS///DYSCHROMIA OTHER 05/13/2008 10/21/2014 Other specified dermatoses 05/13/200810/21 Neoplasm of uncertain behavior of skin 9 10/21/2014 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 05/13/2008 10/21/2014 Other seborrheic keratosis 05/13/200810/21 ANGIOMA///NEVUS, NON-NEOPLASTIC 05/13/2008 10/21/2014 NEVUS////BENIGN MAAME SKIN TRUNK 05/13/2008 0 10/21/2014 Benign neoplasm of colon 08/12/2007 015 Unspecified constipation 08/12/2007 015 Nonspecific abnormal finding in stool contents 0 08/12/2007 10/21/2014 Internal hemorrhoids without mention of complica tion 08/12/2007 10/21/2014 Varicose veins of other sites Lumbago 10/21/2014 Degeneration of intervertebral disc, site unspec ified 10/21/2014 Essential hypertension Last Assessment & Plan: SBP <160 M>65 Continue home Atenolol 50 mg daily Lisinopril increased to 20mg daily prn hydralazine/labetalol Dysfunction of eustachian tube 0 10/21/2014 documented as of this encounter (statuses as of 12/03/2021) [facility]01-05-2022 History of Past illness Narrative* Problem Noted Date Resolved Date Dehydration 05/02/2021 10/15/2021 Urinary tract infection asso ciated with catheterization of urinary tract 05/02/2021 10/15/2021 Gait difficulty 04/09/2021 07/19/2021 General weakness 04/09/2021 07/19/2021 Melena 01/31/2021 02/01/2021 Last Assessment & Plan: 1 BM with some blood on 01/31, was impacted, otherwise normal. H/H stable, HDS Daily CBC, trend UTI (urinary tract infection) 01/31/2021 Last Assessment & Plan: UA and UC positive Bactrim for 3 days- last dose today WBC improving Hyponatremia 01/29/2021 10/15/2021 Last Assessment & Plan: Stabilizing. Na tab decreased to 2g TID Trend BMP daily Delirium 01/24/2021 10/15/2021 Last Assessment & Plan: Seroquel 12.5mg HS Nursing delirium protocol Normalize sleep/wake cycle. Continue melatonin 3mg/HS Leukocytosis 01/23/2021 01/25/2021 Last Assessment & Plan: Likely reactive, WBC: 14.9, afebrile, likely reactive to aneurysm rupture Procal normal, CXR without clear infiltrate -monitor off ABX -trend WBC/temp curve, downtredning Obesity, Class I, BMI 30-34.9 01/23/2021 Last Assessment & Plan: Evaluating and treating per NT recs Elevated lactic acid level 01/23/202101/25 Last Assessment & Plan: Post procedure vs. 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 Continue nimodipine until DC Keep normovolemic. Ambulate in unit. PT/OT/PMR: AR Respiratory insufficiency 01/22/20212020 Last Assessment & Plan: Extubated by anaesthesia prior to arrival Currently tolerating 8L simple mask -supplemental oxygen as needed to maintain SpO2>94%, wean to [place] today -PT/OT/OOB as tolerated Obstructive hydrocephalus 01/22/20212021 Last Assessment & Plan: 01/30 EVD removed Repeat CTH this AM stable. 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 Actinic Damage///Sun-Damaged Skin 08/14/2009 10/21/2014 Solar lentigo 08/14/2009 10/21/2014 Open wound(s) (multiple) of unspecified site(s), without mention of complication 07/04/2008 10/21/2014 Rash and other nonspecific skin eruption 009 10/21/2014 Unspecified disorder of skin and subcutaneous ti ssue 06/22/2008 10/21/2014 Localized superficial swelling, mass, or lump 10/21/2014 Degenerative skin disorder 05/13/200810/21 DERMATOSES NOS///DYSCHROMIA OTHER 05/13/2008 10/21/2014 Other specified dermatoses 05/13/200810/21 Neoplasm of uncertain behavior of skin 9 10/21/2014 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 05/13/2008 10/21/2014 Other seborrheic keratosis 05/13/200810/21 ANGIOMA///NEVUS, NON-NEOPLASTIC 05/13/2008 10/21/2014 NEVUS////BENIGN MAAME SKIN TRUNK 05/13/2008 0 10/21/2014 Benign neoplasm of colon 08/12/2007 015 Unspecified constipation 08/12/2007 015 Nonspecific abnormal finding in stool contents 0 08/12/2007 10/21/2014 Internal hemorrhoids without mention of complica tion 08/12/2007 10/21/2014 Varicose veins of other sites Lumbago 10/21/2014 Degeneration of intervertebral disc, site unspec ified 10/21/2014 Essential hypertension Last Assessment & Plan: SBP <160 M>65 Continue home Atenolol 50 mg daily Lisinopril increased to 20mg daily prn hydralazine/labetalol Dysfunction of eustachian tube 0 10/21/2014 documented as of this encounter (statuses as of 12/05/2021) [facility]01-05-2022 History of Past illness Narrative* Problem Noted Date Resolved Date Dehydration 05/02/2021 10/15/2021 Urinary tract infection asso ciated with catheterization of urinary tract 05/02/2021 10/15/2021 Gait difficulty 04/09/2021 07/19/2021 General weakness 04/09/2021 07/19/2021 Melena 01/31/2021 02/01/2021 Last Assessment & Plan: 1 BM with some blood on 01/31, was impacted, otherwise normal. H/H stable, HDS Daily CBC, trend UTI (urinary tract infection) 01/31/2021 Last Assessment & Plan: UA and UC positive Bactrim for 3 days- last dose today WBC improving Hyponatremia 01/29/2021 10/15/2021 Last Assessment & Plan: Stabilizing. Na tab decreased to 2g TID Trend BMP daily Delirium 01/24/2021 10/15/2021 Last Assessment & Plan: Seroquel 12.5mg HS Nursing delirium protocol Normalize sleep/wake cycle. Continue melatonin 3mg/HS Leukocytosis 01/23/2021 01/25/2021 Last Assessment & Plan: Likely reactive, WBC: 14.9, afebrile, likely reactive to aneurysm rupture Procal normal, CXR without clear infiltrate -monitor off ABX -trend WBC/temp curve, downtredning Obesity, Class I, BMI 30-34.9 01/23/2021 Last Assessment & Plan: Evaluating and treating per NT recs Elevated lactic acid level 01/23/202101/25 Last Assessment & Plan: Post procedure vs. 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 Continue nimodipine until DC Keep normovolemic. Ambulate in unit. PT/OT/PMR: AR Respiratory insufficiency 01/22/20212020 Last Assessment & Plan: Extubated by anaesthesia prior to arrival Currently tolerating 8L simple mask -supplemental oxygen as needed to maintain SpO2>94%, wean to [place] today -PT/OT/OOB as tolerated Obstructive hydrocephalus 01/22/20212021 Last Assessment & Plan: 01/30 EVD removed Repeat CTH this AM stable. 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 Actinic Damage///Sun-Damaged Skin 08/14/2009 10/21/2014 Solar lentigo 08/14/2009 10/21/2014 Open wound(s) (multiple) of unspecified site(s), without mention of complication 07/04/2008 10/21/2014 Rash and other nonspecific skin eruption 009 10/21/2014 Unspecified disorder of skin and subcutaneous ti ssue 06/22/2008 10/21/2014 Localized superficial swelling, mass, or lump 10/21/2014 Degenerative skin disorder 05/13/200810/21 DERMATOSES NOS///DYSCHROMIA OTHER 05/13/2008 10/21/2014 Other specified dermatoses 05/13/200810/21 Neoplasm of uncertain behavior of skin 9 10/21/2014 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 05/13/2008 10/21/2014 Other seborrheic keratosis 05/13/200810/21 ANGIOMA///NEVUS, NON-NEOPLASTIC 05/13/2008 10/21/2014 NEVUS////BENIGN MAAME SKIN TRUNK 05/13/2008 0 10/21/2014 Benign neoplasm of colon 08/12/2007 015 Unspecified constipation 08/12/2007 015 Nonspecific abnormal finding in stool contents 0 08/12/2007 10/21/2014 Internal hemorrhoids without mention of complica tion 08/12/2007 10/21/2014 Varicose veins of other sites Lumbago 10/21/2014 Degeneration of intervertebral disc, site unspec ified 10/21/2014 Essential hypertension Last Assessment & Plan: SBP <160 M>65 Continue home Atenolol 50 mg daily Lisinopril increased to 20mg daily prn hydralazine/labetalol Dysfunction of eustachian tube 0 10/21/2014 documented as of this encounter (statuses as of 12/10/2021) [facility]01-05-2022 History of Past illness Narrative* Problem Noted Date Resolved Date Dehydration 05/02/2021 10/15/2021 Urinary tract infection asso ciated with catheterization of urinary tract 05/02/2021 10/15/2021 Gait difficulty 04/09/2021 07/19/2021 General weakness 04/09/2021 07/19/2021 Melena 01/31/2021 02/01/2021 Last Assessment & Plan: 1 BM with some blood on 01/31, was impacted, otherwise normal. H/H stable, HDS Daily CBC, trend UTI (urinary tract infection) 01/31/2021 Last Assessment & Plan: UA and UC positive Bactrim for 3 days- last dose today WBC improving Hyponatremia 01/29/2021 10/15/2021 Last Assessment & Plan: Stabilizing. Na tab decreased to 2g TID Trend BMP daily Delirium 01/24/2021 10/15/2021 Last Assessment & Plan: Seroquel 12.5mg HS Nursing delirium protocol Normalize sleep/wake cycle. Continue melatonin 3mg/HS Leukocytosis 01/23/2021 01/25/2021 Last Assessment & Plan: Likely reactive, WBC: 14.9, afebrile, likely reactive to aneurysm rupture Procal normal, CXR without clear infiltrate -monitor off ABX -trend WBC/temp curve, downtredning Obesity, Class I, BMI 30-34.9 01/23/2021 Last Assessment & Plan: Evaluating and treating per NT recs Elevated lactic acid level 01/23/202101/25 Last Assessment & Plan: Post procedure vs. 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 Continue nimodipine until DC Keep normovolemic. Ambulate in unit. PT/OT/PMR: AR Respiratory insufficiency 01/22/20212020 Last Assessment & Plan: Extubated by anaesthesia prior to arrival Currently tolerating 8L simple mask -supplemental oxygen as needed to maintain SpO2>94%, wean to [place] today -PT/OT/OOB as tolerated Obstructive hydrocephalus 01/22/20212021 Last Assessment & Plan: 01/30 EVD removed Repeat CTH this AM stable. 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 Actinic Damage///Sun-Damaged Skin 08/14/2009 10/21/2014 Solar lentigo 08/14/2009 10/21/2014 Open wound(s) (multiple) of unspecified site(s), without mention of complication 07/04/2008 10/21/2014 Rash and other nonspecific skin eruption 009 10/21/2014 Unspecified disorder of skin and subcutaneous ti ssue 06/22/2008 10/21/2014 Localized superficial swelling, mass, or lump 10/21/2014 Degenerative skin disorder 05/13/200810/21 DERMATOSES NOS///DYSCHROMIA OTHER 05/13/2008 10/21/2014 Other specified dermatoses 05/13/200810/21 Neoplasm of uncertain behavior of skin 9 10/21/2014 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 05/13/2008 10/21/2014 Other seborrheic keratosis 05/13/200810/21 ANGIOMA///NEVUS, NON-NEOPLASTIC 05/13/2008 10/21/2014 NEVUS////BENIGN MAAME SKIN TRUNK 05/13/2008 0 10/21/2014 Benign neoplasm of colon 08/12/2007 015 Unspecified constipation 08/12/2007 015 Nonspecific abnormal finding in stool contents 0 08/12/2007 10/21/2014 Internal hemorrhoids without mention of complica tion 08/12/2007 10/21/2014 Varicose veins of other sites Lumbago 10/21/2014 Degeneration of intervertebral disc, site unspec ified 10/21/2014 Essential hypertension Last Assessment & Plan: SBP <160 M>65 Continue home Atenolol 50 mg daily Lisinopril increased to 20mg daily prn hydralazine/labetalol Dysfunction of eustachian tube 0 10/21/2014 documented as of this encounter (statuses as of 12/12/2021) [facility]01-05-2022 History of Past illness Narrative* Problem Noted Date Resolved Date Dehydration 05/02/2021 10/15/2021 Urinary tract infection asso ciated with catheterization of urinary tract 05/02/2021 10/15/2021 Gait difficulty 04/09/2021 07/19/2021 General weakness 04/09/2021 07/19/2021 Melena 01/31/2021 02/01/2021 Last Assessment & Plan: 1 BM with some blood on 01/31, was impacted, otherwise normal. H/H stable, HDS Daily CBC, trend UTI (urinary tract infection) 01/31/2021 Last Assessment & Plan: UA and UC positive Bactrim for 3 days- last dose today WBC improving Hyponatremia 01/29/2021 10/15/2021 Last Assessment & Plan: Stabilizing. Na tab decreased to 2g TID Trend BMP daily Delirium 01/24/2021 10/15/2021 Last Assessment & Plan: Seroquel 12.5mg HS Nursing delirium protocol Normalize sleep/wake cycle. Continue melatonin 3mg/HS Leukocytosis 01/23/2021 01/25/2021 Last Assessment & Plan: Likely reactive, WBC: 14.9, afebrile, likely reactive to aneurysm rupture Procal normal, CXR without clear infiltrate -monitor off ABX -trend WBC/temp curve, downtredning Obesity, Class I, BMI 30-34.9 01/23/2021 Last Assessment & Plan: Evaluating and treating per NT recs Elevated lactic acid level 01/23/202101/25 Last Assessment & Plan: Post procedure vs. 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 Continue nimodipine until DC Keep normovolemic. Ambulate in unit. PT/OT/PMR: AR Respiratory insufficiency 01/22/20212020 Last Assessment & Plan: Extubated by anaesthesia prior to arrival Currently tolerating 8L simple mask -supplemental oxygen as needed to maintain SpO2>94%, wean to [place] today -PT/OT/OOB as tolerated Obstructive hydrocephalus 01/22/20212021 Last Assessment & Plan: 01/30 EVD removed Repeat CTH this AM stable. 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 Actinic Damage///Sun-Damaged Skin 08/14/2009 10/21/2014 Solar lentigo 08/14/2009 10/21/2014 Open wound(s) (multiple) of unspecified site(s), without mention of complication 07/04/2008 10/21/2014 Rash and other nonspecific skin eruption 009 10/21/2014 Unspecified disorder of skin and subcutaneous ti ssue 06/22/2008 10/21/2014 Localized superficial swelling, mass, or lump 10/21/2014 Degenerative skin disorder 05/13/200810/21 DERMATOSES NOS///DYSCHROMIA OTHER 05/13/2008 10/21/2014 Other specified dermatoses 05/13/200810/21 Neoplasm of uncertain behavior of skin 9 10/21/2014 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 05/13/2008 10/21/2014 Other seborrheic keratosis 05/13/200810/21 ANGIOMA///NEVUS, NON-NEOPLASTIC 05/13/2008 10/21/2014 NEVUS////BENIGN MAAME SKIN TRUNK 05/13/2008 0 10/21/2014 Benign neoplasm of colon 08/12/2007 015 Unspecified constipation 08/12/2007 015 Nonspecific abnormal finding in stool contents 0 08/12/2007 10/21/2014 Internal hemorrhoids without mention of complica tion 08/12/2007 10/21/2014 Varicose veins of other sites Lumbago 10/21/2014 Degeneration of intervertebral disc, site unspec ified 10/21/2014 Essential hypertension Last Assessment & Plan: SBP <160 M>65 Continue home Atenolol 50 mg daily Lisinopril increased to 20mg daily prn hydralazine/labetalol Dysfunction of eustachian tube 0 10/21/2014 documented as of this encounter (statuses as of 12/13/2021) [facility]01-05-2022 History of Past illness Narrative* Problem Noted Date Resolved Date Dehydration 05/02/2021 10/15/2021 Urinary tract infection asso ciated with catheterization of urinary tract 05/02/2021 10/15/2021 Gait difficulty 04/09/2021 07/19/2021 General weakness 04/09/2021 07/19/2021 Melena 01/31/2021 02/01/2021 Last Assessment & Plan: 1 BM with some blood on 01/31, was impacted, otherwise normal. H/H stable, HDS Daily CBC, trend UTI (urinary tract infection) 01/31/2021 Last Assessment & Plan: UA and UC positive Bactrim for 3 days- last dose today WBC improving Hyponatremia 01/29/2021 10/15/2021 Last Assessment & Plan: Stabilizing. Na tab decreased to 2g TID Trend BMP daily Delirium 01/24/2021 10/15/2021 Last Assessment & Plan: Seroquel 12.5mg HS Nursing delirium protocol Normalize sleep/wake cycle. Continue melatonin 3mg/HS Leukocytosis 01/23/2021 01/25/2021 Last Assessment & Plan: Likely reactive, WBC: 14.9, afebrile, likely reactive to aneurysm rupture Procal normal, CXR without clear infiltrate -monitor off ABX -trend WBC/temp curve, downtredning Obesity, Class I, BMI 30-34.9 01/23/2021 Last Assessment & Plan: Evaluating and treating per NT recs Elevated lactic acid level 01/23/202101/25 Last Assessment & Plan: Post procedure vs. 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 Continue nimodipine until DC Keep normovolemic. Ambulate in unit. PT/OT/PMR: AR Respiratory insufficiency 01/22/20212020 Last Assessment & Plan: Extubated by anaesthesia prior to arrival Currently tolerating 8L simple mask -supplemental oxygen as needed to maintain SpO2>94%, wean to [place] today -PT/OT/OOB as tolerated Obstructive hydrocephalus 01/22/20212021 Last Assessment & Plan: 01/30 EVD removed Repeat CTH this AM stable. 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 Actinic Damage///Sun-Damaged Skin 08/14/2009 10/21/2014 Solar lentigo 08/14/2009 10/21/2014 Open wound(s) (multiple) of unspecified site(s), without mention of complication 07/04/2008 10/21/2014 Rash and other nonspecific skin eruption 009 10/21/2014 Unspecified disorder of skin and subcutaneous ti ssue 06/22/2008 10/21/2014 Localized superficial swelling, mass, or lump 10/21/2014 Degenerative skin disorder 05/13/200810/21 DERMATOSES NOS///DYSCHROMIA OTHER 05/13/2008 10/21/2014 Other specified dermatoses 05/13/200810/21 Neoplasm of uncertain behavior of skin 9 10/21/2014 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 05/13/2008 10/21/2014 Other seborrheic keratosis 05/13/200810/21 ANGIOMA///NEVUS, NON-NEOPLASTIC 05/13/2008 10/21/2014 NEVUS////BENIGN MAAME SKIN TRUNK 05/13/2008 0 10/21/2014 Benign neoplasm of colon 08/12/2007 015 Unspecified constipation 08/12/2007 015 Nonspecific abnormal finding in stool contents 0 08/12/2007 10/21/2014 Internal hemorrhoids without mention of complica tion 08/12/2007 10/21/2014 Varicose veins of other sites Lumbago 10/21/2014 Degeneration of intervertebral disc, site unspec ified 10/21/2014 Essential hypertension Last Assessment & Plan: SBP <160 M>65 Continue home Atenolol 50 mg daily Lisinopril increased to 20mg daily prn hydralazine/labetalol Dysfunction of eustachian tube 0 10/21/2014 documented as of this encounter (statuses as of 12/14/2021) [facility]01-05-2022 History of Past illness Narrative* Problem Noted Date Resolved Date Dehydration 05/02/2021 10/15/2021 Urinary tract infection asso ciated with catheterization of urinary tract 05/02/2021 10/15/2021 Gait difficulty 04/09/2021 07/19/2021 General weakness 04/09/2021 07/19/2021 Melena 01/31/2021 02/01/2021 Last Assessment & Plan: 1 BM with some blood on 01/31, was impacted, otherwise normal. H/H stable, HDS Daily CBC, trend UTI (urinary tract infection) 01/31/2021 Last Assessment & Plan: UA and UC positive Bactrim for 3 days- last dose today WBC improving Hyponatremia 01/29/2021 10/15/2021 Last Assessment & Plan: Stabilizing. Na tab decreased to 2g TID Trend BMP daily Delirium 01/24/2021 10/15/2021 Last Assessment & Plan: Seroquel 12.5mg HS Nursing delirium protocol Normalize sleep/wake cycle. Continue melatonin 3mg/HS Leukocytosis 01/23/2021 01/25/2021 Last Assessment & Plan: Likely reactive, WBC: 14.9, afebrile, likely reactive to aneurysm rupture Procal normal, CXR without clear infiltrate -monitor off ABX -trend WBC/temp curve, downtredning Obesity, Class I, BMI 30-34.9 01/23/2021 Last Assessment & Plan: Evaluating and treating per NT recs Elevated lactic acid level 01/23/202101/25 Last Assessment & Plan: Post procedure vs. 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 Continue nimodipine until DC Keep normovolemic. Ambulate in unit. PT/OT/PMR: AR Respiratory insufficiency 01/22/20212020 Last Assessment & Plan: Extubated by anaesthesia prior to arrival Currently tolerating 8L simple mask -supplemental oxygen as needed to maintain SpO2>94%, wean to [place] today -PT/OT/OOB as tolerated Obstructive hydrocephalus 01/22/20212021 Last Assessment & Plan: 01/30 EVD removed Repeat CTH this AM stable. 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 Actinic Damage///Sun-Damaged Skin 08/14/2009 10/21/2014 Solar lentigo 08/14/2009 10/21/2014 Open wound(s) (multiple) of unspecified site(s), without mention of complication 07/04/2008 10/21/2014 Rash and other nonspecific skin eruption 009 10/21/2014 Unspecified disorder of skin and subcutaneous ti ssue 06/22/2008 10/21/2014 Localized superficial swelling, mass, or lump 10/21/2014 Degenerative skin disorder 05/13/200810/21 DERMATOSES NOS///DYSCHROMIA OTHER 05/13/2008 10/21/2014 Other specified dermatoses 05/13/200810/21 Neoplasm of uncertain behavior of skin 9 10/21/2014 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 05/13/2008 10/21/2014 Other seborrheic keratosis 05/13/200810/21 ANGIOMA///NEVUS, NON-NEOPLASTIC 05/13/2008 10/21/2014 NEVUS////BENIGN MAAME SKIN TRUNK 05/13/2008 0 10/21/2014 Benign neoplasm of colon 08/12/2007 015 Unspecified constipation 08/12/2007 015 Nonspecific abnormal finding in stool contents 0 08/12/2007 10/21/2014 Internal hemorrhoids without mention of complica tion 08/12/2007 10/21/2014 Varicose veins of other sites Lumbago 10/21/2014 Degeneration of intervertebral disc, site unspec ified 10/21/2014 Essential hypertension Last Assessment & Plan: SBP <160 M>65 Continue home Atenolol 50 mg daily Lisinopril increased to 20mg daily prn hydralazine/labetalol Dysfunction of eustachian tube 0 10/21/2014 documented as of this encounter (statuses as of 12/17/2021) [facility]12[facility] History of Past illness Narrative* Problem Noted Date Resolved Date Gait difficulty 04/09/2021 07/19/2021 General weakness 04/09/2021 07/19/2021 Melena 01/31/2021 02/01/2021 Last Assessment & Plan: 1 BM with some blood on 01/31, was impacted, otherwise normal. H/H stable, HDS Daily CBC, trend Leukocytosis 01/23/2021 01/25/2021 Last Assessment & Plan: Likely reactive, WBC: 14.9, afebrile, likely reactive to aneurysm rupture Procal normal, CXR without clear infiltrate -monitor off ABX -trend WBC/temp curve, downtredning Elevated lactic acid level 01/23/202101/25 Last Assessment & Plan: Post procedure vs. 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 Actinic Damage///Sun-Damaged Skin 08/14/2009 10/21/2014 Solar lentigo 08/14/2009 10/21/2014 Open wound(s) (multiple) of unspecified site(s), without mention of complication 07/04/2008 10/21/2014 Rash and other nonspecific skin eruption 009 10/21/2014 Unspecified disorder of skin and subcutaneous ti ssue 06/22/2008 10/21/2014 Localized superficial swelling, mass, or lump 10/21/2014 Degenerative skin disorder 05/13/200810/21 DERMATOSES NOS///DYSCHROMIA OTHER 05/13/2008 10/21/2014 Other specified dermatoses 05/13/200810/21 Neoplasm of uncertain behavior of skin 9 10/21/2014 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 05/13/2008 10/21/2014 Other seborrheic keratosis 05/13/200810/21 ANGIOMA///NEVUS, NON-NEOPLASTIC 05/13/2008 10/21/2014 NEVUS////BENIGN MAAME SKIN TRUNK 05/13/2008 0 10/21/2014 Benign neoplasm of colon 08/12/2007 015 Unspecified constipation 08/12/2007 015 Nonspecific abnormal finding in stool contents 0 08/12/2007 10/21/2014 Internal hemorrhoids without mention of complica tion 08/12/2007 10/21/2014 Varicose veins of other sites Lumbago 10/21/2014 Degeneration of intervertebral disc, site unspec ified 10/21/2014 Dysfunction of eustachian tube 0 10/21/2014 documented as of this encounter (statuses as of 08/06/2021) [facility]12[facility] History of Past illness Narrative* Problem Noted Date Resolved Date Gait difficulty 04/09/2021 07/19/2021 General weakness 04/09/2021 07/19/2021 Melena 01/31/2021 02/01/2021 Last Assessment & Plan: 1 BM with some blood on 01/31, was impacted, otherwise normal. H/H stable, HDS Daily CBC, trend Leukocytosis 01/23/2021 01/25/2021 Last Assessment & Plan: Likely reactive, WBC: 14.9, afebrile, likely reactive to aneurysm rupture Procal normal, CXR without clear infiltrate -monitor off ABX -trend WBC/temp curve, downtredning Elevated lactic acid level 01/23/202101/25 Last Assessment & Plan: Post procedure vs. 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 Actinic Damage///Sun-Damaged Skin 08/14/2009 10/21/2014 Solar lentigo 08/14/2009 10/21/2014 Open wound(s) (multiple) of unspecified site(s), without mention of complication 07/04/2008 10/21/2014 Rash and other nonspecific skin eruption 009 10/21/2014 Unspecified disorder of skin and subcutaneous ti ssue 06/22/2008 10/21/2014 Localized superficial swelling, mass, or lump 10/21/2014 Degenerative skin disorder 05/13/200810/21 DERMATOSES NOS///DYSCHROMIA OTHER 05/13/2008 10/21/2014 Other specified dermatoses 05/13/200810/21 Neoplasm of uncertain behavior of skin 9 10/21/2014 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 05/13/2008 10/21/2014 Other seborrheic keratosis 05/13/200810/21 ANGIOMA///NEVUS, NON-NEOPLASTIC 05/13/2008 10/21/2014 NEVUS////BENIGN MAAME SKIN TRUNK 05/13/2008 0 10/21/2014 Benign neoplasm of colon 08/12/2007 015 Unspecified constipation 08/12/2007 015 Nonspecific abnormal finding in stool contents 0 08/12/2007 10/21/2014 Internal hemorrhoids without mention of complica tion 08/12/2007 10/21/2014 Varicose veins of other sites Lumbago 10/21/2014 Degeneration of intervertebral disc, site unspec ified 10/21/2014 Dysfunction of eustachian tube 0 10/21/2014 documented as of this encounter (statuses as of 08/08/2021) [facility]12[facility] History of Past illness Narrative* Problem Noted Date Resolved Date Gait difficulty 04/09/2021 07/19/2021 General weakness 04/09/2021 07/19/2021 Melena 01/31/2021 02/01/2021 Last Assessment & Plan: 1 BM with some blood on 01/31, was impacted, otherwise normal. H/H stable, HDS Daily CBC, trend Leukocytosis 01/23/2021 01/25/2021 Last Assessment & Plan: Likely reactive, WBC: 14.9, afebrile, likely reactive to aneurysm rupture Procal normal, CXR without clear infiltrate -monitor off ABX -trend WBC/temp curve, downtredning Elevated lactic acid level 01/23/202101/25 Last Assessment & Plan: Post procedure vs. 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 Actinic Damage///Sun-Damaged Skin 08/14/2009 10/21/2014 Solar lentigo 08/14/2009 10/21/2014 Open wound(s) (multiple) of unspecified site(s), without mention of complication 07/04/2008 10/21/2014 Rash and other nonspecific skin eruption 009 10/21/2014 Unspecified disorder of skin and subcutaneous ti ssue 06/22/2008 10/21/2014 Localized superficial swelling, mass, or lump 10/21/2014 Degenerative skin disorder 05/13/200810/21 DERMATOSES NOS///DYSCHROMIA OTHER 05/13/2008 10/21/2014 Other specified dermatoses 05/13/200810/21 Neoplasm of uncertain behavior of skin 9 10/21/2014 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 05/13/2008 10/21/2014 Other seborrheic keratosis 05/13/200810/21 ANGIOMA///NEVUS, NON-NEOPLASTIC 05/13/2008 10/21/2014 NEVUS////BENIGN MAAME SKIN TRUNK 05/13/2008 0 10/21/2014 Benign neoplasm of colon 08/12/2007 015 Unspecified constipation 08/12/2007 015 Nonspecific abnormal finding in stool contents 0 08/12/2007 10/21/2014 Internal hemorrhoids without mention of complica tion 08/12/2007 10/21/2014 Varicose veins of other sites Lumbago 10/21/2014 Degeneration of intervertebral disc, site unspec ified 10/21/2014 Dysfunction of eustachian tube 0 10/21/2014 documented as of this encounter (statuses as of 09/06/2021) [facility]12[facility] History of Past illness Narrative* Problem Noted Date Resolved Date Gait difficulty 04/09/2021 07/19/2021 General weakness 04/09/2021 07/19/2021 Melena 01/31/2021 02/01/2021 Last Assessment & Plan: 1 BM with some blood on 01/31, was impacted, otherwise normal. H/H stable, HDS Daily CBC, trend Leukocytosis 01/23/2021 01/25/2021 Last Assessment & Plan: Likely reactive, WBC: 14.9, afebrile, likely reactive to aneurysm rupture Procal normal, CXR without clear infiltrate -monitor off ABX -trend WBC/temp curve, downtredning Elevated lactic acid level 01/23/202101/25 Last Assessment & Plan: Post procedure vs. 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 Actinic Damage///Sun-Damaged Skin 08/14/2009 10/21/2014 Solar lentigo 08/14/2009 10/21/2014 Open wound(s) (multiple) of unspecified site(s), without mention of complication 07/04/2008 10/21/2014 Rash and other nonspecific skin eruption 009 10/21/2014 Unspecified disorder of skin and subcutaneous ti ssue 06/22/2008 10/21/2014 Localized superficial swelling, mass, or lump 10/21/2014 Degenerative skin disorder 05/13/200810/21 DERMATOSES NOS///DYSCHROMIA OTHER 05/13/2008 10/21/2014 Other specified dermatoses 05/13/200810/21 Neoplasm of uncertain behavior of skin 9 10/21/2014 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 05/13/2008 10/21/2014 Other seborrheic keratosis 05/13/200810/21 ANGIOMA///NEVUS, NON-NEOPLASTIC 05/13/2008 10/21/2014 NEVUS////BENIGN MAAME SKIN TRUNK 05/13/2008 0 10/21/2014 Benign neoplasm of colon 08/12/2007 015 Unspecified constipation 08/12/2007 015 Nonspecific abnormal finding in stool contents 0 08/12/2007 10/21/2014 Internal hemorrhoids without mention of complica tion 08/12/2007 10/21/2014 Varicose veins of other sites Lumbago 10/21/2014 Degeneration of intervertebral disc, site unspec ified 10/21/2014 Dysfunction of eustachian tube 0 10/21/2014 documented as of this encounter (statuses as of 10/08/2021) [facility]08-30-[facility]21 History of Present illness Narrative* Denisse Cuevas, RT(R) - 12/25/2020 1:10 PM EDT Radiology Service Progress Note PATIENT NAME: Judi Krause DATE OF SERVICE: December 25, 2020 TIME: 1:03 PM PATIENT IDENTITY VERIFICATION COMPLETED USING TWO (2) IDENTIFIERS: Name and Date of confirmedby patient verbally. FALL SCREENING: Has the patient had 2 falls in the last year or 1 fall with injury or currently using an Ambulatory Assistive Device (Walker, Cane, Wheelchair, Crutches, etc.)? No PATIENT GENDER DATA: Female. status: : No status: NO. PATIENT RELEVANT IMPLANT DATA REVIEWED: Not Applicable RADIOLOGY DEPARTMENT: General X-ray: Exam(s) Completed: Chest X-Ray PERIPHERAL IV DATA: Not applicable SIGNED BY: RT Linus(Huy) December 25, 2020 1:03 PM [facility] NoteHNO ID: [id number] Author: RT Frieda(Huy) Service: ? Author Type: Tax Investigator Type: Progress Notes Filed: 09/05/2020 12:14 PM Note Text: Radiology Service Progress Note PATIENT NAME: Judi Krause DATE OF SERVICE: September 05, 2020 TIME: 12:12 PM PATIENT IDENTITY VERIFICATION COMPLETED USING TWO (2) IDENTIFIERS: Name and Date of confirmed by patient verbally. FALL SCREENING: Has the patient had 2 falls in the last year or 1 fall with injury or currently using an Ambulatory Assistive Device (Walker, Cane, Wheelchair, Crutches, etc.)? Yes, Patient High Risk for Falls What interventions were put in place to prevent falls during this visit? Instructed Patient to Remain Seated (Not on Exam Table) Until Exam PATIENT GENDER DATA: Female. status: : No status: NO. PATIENT RELEVANT IMPLANT DATA REVIEWED: Not Applicable RADIOLOGY DEPARTMENT: General X-ray: Exam(s) Completed: Lower Extremity X-Ray(s): Knee, AP / Lat / Merchant Right PERIPHERAL IV DATA: Not applicable SIGNED BY: RT Frieda(R) September 05, 2020 12:12 PM[id number] NoteHNO ID: [id number] Author: Mindi Pereira (Rt) Service: Radiology Author Type: Tax Investigator Type: Progress Notes Filed: 08/01/2020 3:12 PM Note Text: Radiology Service Progress Note PATIENT NAME: Judi Krause DATE OF SERVICE: August 01, 2020 TIME: 3:12 PM PATIENT IDENTITY VERIFICATION COMPLETED USING TWO (2) IDENTIFIERS: Name and Date of confirmed by patient verbally and Name and Date of confirmed by identification band. FALL SCREENING: Has the patient had 2 falls in the last year or 1 fall with injury or currently using an Ambulatory Assistive Device (Walker, Cane, Wheelchair, Crutches, etc.)? No PATIENT GENDER DATA: Female. status: : No status: NO. PATIENT RELEVANT IMPLANT DATA REVIEWED: Yes RADIOLOGY DEPARTMENT: MR; Exam(s) Completed: Head: [place] MRA PERIPHERAL IV DATA: Not applicable SIGNED BY: RT ISRRAEL August 01, 2020 3:12 [facility]01-09-2021 History of Present illness Narrative* Roslyn Murray Tech (Rt) - 05/06/2020 11:20 AM EST Radiology Service Progress Note PATIENT NAME: Judi Krause DATE OF SERVICE: May 06, 2020 TIME: 11:13 AM PATIENT IDENTITY VERIFICATION COMPLETED USING TWO (2) IDENTIFIERS: Name and Date of confirmedby patient verbally. FALL SCREENING: Has the patient had 2 falls in the last year or 1 fall with injury or currently using an Ambulatory Assistive Device (Walker, Cane, Wheelchair, Crutches, etc.)? Yes, Patient High Riskfor Falls What interventions were put in place to prevent falls during this visit? Instructed Patient to Callfor Help if Needed, Offered Assistance with Transfers/Clothing and Increased Observations by Caregivers PATIENT GENDER DATA: Female. status: : No status: NO. PATIENT RELEVANT IMPLANT DATA REVIEWED: Yes RADIOLOGY DEPARTMENT: General X-ray: Exam(s) Completed: Lower Extremity X- Ray(s): Ankle, Left: PERIPHERAL IV DATA: Not applicable SIGNED BY: RT Marco May 06, 2020 11:13 AM documented in [facility] encounterWilson [facility] HospitalEvaluation [facility]* Diagnosis Right knee pain, unspecified chronicity [facility] Diagnosis Onset Date Resolution Status Bacteria in urine acute Creatinine elevation acute Hydronephrosis with urinary obstruction due to ureteral calculus acute [facility] Work Phone: Evaluation note* Diagnosis Acute right ankle pain- Primary [facility] Diagnosis Osteoporosis, unspecified- Primary [facility]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 [facility]* Diagnosis Invasive ductal carcinoma of breast, 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 [facility] Diagnosis Bilateral fibrocystic breast changes- Primary Personal history of breast cancer Personal history of malignant neoplasm of breast S/P bilateral breast lumpectomy Other postprocedural status Use of anastrozole Use of aromatase inhibitors Encounter for screening mammogram for malignant neoplasm of breast Other screening mammogram [facility] Diagnosis Encounter for screening mammogram for breast cancer Bilateral fibrocystic breast changes Personal history of breast cancer Personal history of malignant neoplasm of breast S/P bilateral breast lumpectomy Other postprocedural status Encounter for screening mammogram for malignant neoplasm of breast Other screening mammogram [facility]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 [facility] Diagnosis Cerebral aneurysm- Primary Cerebral aneurysm, nonruptured [facility]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 [facility]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 Diagnosis Vitamin D deficiency- Primary Unspecified vitamin D deficiency Type 2 diabetes mellitus with diabetic neuropathy, without long-term current use of insulin (HCC) Generalized anxiety disorder Mixed hyperlipidemia [facility] this 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*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 [facility] Diagnosis Insomnia, unspecified type- Primary Anxiety Anxiety state, unspecified Vitamin D deficiency Unspecified vitamin D deficiency Type 2 diabetes mellitus with diabetic neuropathy, without long-term current use of insulin ([facility]) Encounter for long-term current use of medication Malignant neoplasm of nipple of left breast in female, unspecified estrogen receptor status ([facility]) [facility]* Diagnosis Intracranial aneurysm- Primary Cerebral aneurysm, nonruptured Nonruptured cerebral aneurysm Cerebral aneurysm, nonruptured [facility]* Diagnosis Preop exam for internal medicine- Primary Other specified pre-operative examination Type 2 diabetes mellitus with diabetic neuropathy, without long-term current use of insulin ([facility]) Need for shingles vaccine Need for prophylactic vaccination and inoculation against other viral diseases Encounter for immunization Need for other specified prophylactic vaccination against single bacterial disease Screening for diabetic retinopathy Screening for other eye conditions Vitamin D deficiency Unspecified vitamin D deficiency 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 [facility]* Diagnosis Type 2 diabetes mellitus with diabetic neuropathy, without long-term current use of insulin (HCC)- Primary Vitamin D deficiency Unspecified vitamin D deficiency Insomnia, unspecified type [facility] Diagnosis Primary hypertension- Primary Unspecified essential hypertension Encounter for immunization Need for other specified prophylactic vaccination against single bacterial disease Need for shingles vaccine Need for prophylactic vaccination and inoculation against other viral diseases History of extraction of renal calculus Other postprocedural status History of hydronephrosis Personal history of other disorder of urinary system [facility] Diagnosis Screening breast examination- Primary Breast screening, unspecified [facility] Diagnosis Bilateral fibrocystic breast changes- Primary Personal history of breast cancer Personal history of malignant neoplasm of breast S/P bilateral breast lumpectomy Other postprocedural status Use of anastrozole Use of aromatase inhibitors Encounter for screening mammogram for malignant neoplasm of breast Other screening mammogram Mass of lower outer quadrant of right breast [facility] Diagnosis Screening breast examination Breast screening, unspecified [facility] Diagnosis Nonruptured cerebral aneurysm Cerebral aneurysm, nonruptured [facility]* Diagnosis Intracranial aneurysm Cerebral aneurysm, nonruptured [facility] Diagnosis Invasive ductal carcinoma of breast, 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 [facility] Diagnosis Peripheral arterial disease (HCC)- Primary Peripheral vascular disease, unspecified Primary hypertension Unspecified essential hypertension Type 2 diabetes mellitus with diabetic neuropathy, without long-term current use of insulin (HCC) Tinnitus of both ears Unspecified tinnitus Vitamin D deficiency Unspecified vitamin D deficiency Mixed hyperlipidemia Muscle cramping Cramp of limb [facility] Diagnosis Screening for diabetic retinopathy- Primary Screening for other eye conditions Encounter for immunization Need for other specified prophylactic vaccination against single bacterial disease Type 2 diabetes mellitus with diabetic neuropathy, without long-term current use of insulin (HCC) Insomnia, unspecified type History of abdominal surgery Other postprocedural status Abdominal pain, chronic, generalized Abdominal pain, generalized 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) Gait difficulty Abnormality of gait Complaints of leg weakness Other musculoskeletal symptoms referable to limbs [facility] Diagnosis Osteoporosis, unspecified- Primary [facility]* Diagnosis History of abdominal surgery Other postprocedural status Abdominal pain, chronic, generalized Abdominal pain, generalized [facility]* Diagnosis Gait difficulty- Primary Abnormality of gait Complaints of leg weakness Other musculoskeletal symptoms referable to limbs [facility] Diagnosis Patient left without being seen- Primary Surgical or other procedure not carried out because of patient's decision [facility] Diagnosis Acute left ankle pain- Primary Foot pain, left Pain in limb Acute left ankle pain Foot pain, left Pain in limb [facility] Diagnosis Complaints of leg weakness- Primary Other musculoskeletal symptoms referable to limbs Gait difficulty Abnormality of gait [facility] Diagnosis Complaints of leg weakness- Primary Other musculoskeletal symptoms referable to limbs Gait difficulty Abnormality of gait [facility] Diagnosis Complaints of leg weakness- Primary Other musculoskeletal symptoms referable to limbs Gait difficulty Abnormality of gait [facility] Diagnosis Complaints of leg weakness- Primary Other musculoskeletal symptoms referable to limbs Gait difficulty Abnormality of gait [facility] Diagnosis Complaints of leg weakness- Primary Other musculoskeletal symptoms referable to limbs Gait difficulty Abnormality of gait [facility] Diagnosis Complaints of leg weakness- Primary Other musculoskeletal symptoms referable to limbs Gait difficulty Abnormality of gait [facility] Diagnosis Complaints of leg weakness- Primary Other musculoskeletal symptoms referable to limbs Gait difficulty Abnormality of gait [facility] Diagnosis Complaints of leg weakness- Primary Other musculoskeletal symptoms referable to limbs Gait difficulty Abnormality of gait [facility] Diagnosis Complaints of leg weakness- Primary Other musculoskeletal symptoms referable to limbs Gait difficulty Abnormality of gait [facility] Diagnosis Generalized abdominal pain- Primary Abdominal pain, generalized History of abdominal surgery Other postprocedural status [facility] Diagnosis Complaints of leg weakness- Primary Other musculoskeletal symptoms referable to limbs Gait difficulty Abnormality of gait [facility] Diagnosis Type 2 diabetes mellitus with diabetic neuropathy, without long-term current use of insulin (HCC) 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 Diagnosis Pre-operative examination- Primary Preoperative examination, unspecified Dupuytren's contracture Contracture of palmar fascia Cerebral aneurysm, nonruptured Essential hypertension Unspecified essential hypertension Mixed hyperlipidemia Gastroesophageal reflux disease, esophagitis presence not specified Generalized anxiety disorder Pre-operative examination- Primary Preoperative examination, unspecified Primary osteoarthritis of right knee Primary localized osteoarthrosis, lower leg Cerebral aneurysm, nonruptured Essential hypertension Unspecified essential hypertension Mixed hyperlipidemia Gastroesophageal reflux disease, unspecified whether esophagitis present 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) Osteoporosis, unspecified Reactive depression Dysthymic disorder Generalized anxiety disorder Venous insufficiency (chronic) (peripheral) Unspecified venous (peripheral) insufficiency Prediabetes Other abnormal glucose SAH (subarachnoid hemorrhage) ([facility])- Primary Subarachnoid hemorrhage Dysphagia, oropharyngeal Dysphagia, oropharyngeal phase Generalized anxiety disorder Respiratory insufficiency Other dyspnea and respiratory abnormality 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) Leukocytosis Leukocytosis, unspecified Elevated lactic acid level Acidosis Dyspepsia Dyspepsia and other specified disorders of function of stomach Edema of both legs Edema Melena Blood in stool Preoperative examination- Primary Preoperative examination, unspecified Cerebral aneurysm, nonruptured Mixed hyperlipidemia Essential hypertension Unspecified essential hypertension Gastroesophageal reflux disease, unspecified whether esophagitis present Type 2 diabetes mellitus without complication, without long-term current use of insulin (HCC) 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) Generalized anxiety disorder Complaints of leg weakness- Primary Other musculoskeletal symptoms referable to limbs Gait difficulty Abnormality of gait [facility] Diagnosis Pre-operative examination- Primary Preoperative examination, unspecified Dupuytren's contracture Contracture of palmar fascia Cerebral aneurysm, nonruptured Essential hypertension Unspecified essential hypertension Mixed hyperlipidemia Gastroesophageal reflux disease, esophagitis presence not specified Generalized anxiety disorder Pre-operative examination- Primary Preoperative examination, unspecified Primary osteoarthritis of right knee Primary localized osteoarthrosis, lower leg Cerebral aneurysm, nonruptured Essential hypertension Unspecified essential hypertension Mixed hyperlipidemia Gastroesophageal reflux disease, unspecified whether esophagitis present 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) Osteoporosis, unspecified Reactive depression Dysthymic disorder Generalized anxiety disorder Venous insufficiency (chronic) (peripheral) Unspecified venous (peripheral) insufficiency Prediabetes Other abnormal glucose SAH (subarachnoid hemorrhage) ([facility])- Primary Subarachnoid hemorrhage Dysphagia, oropharyngeal Dysphagia, oropharyngeal phase Generalized anxiety disorder Respiratory insufficiency Other dyspnea and respiratory abnormality 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) Leukocytosis Leukocytosis, unspecified Elevated lactic acid level Acidosis Dyspepsia Dyspepsia and other specified disorders of function of stomach Edema of both legs Edema Melena Blood in stool Preoperative examination- Primary Preoperative examination, unspecified Cerebral aneurysm, nonruptured Mixed hyperlipidemia Essential hypertension Unspecified essential hypertension Gastroesophageal reflux disease, unspecified whether esophagitis present Type 2 diabetes mellitus without complication, without long-term current use of insulin (HCC) 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) Generalized anxiety disorder Hypertension- Primary Unspecified essential hypertension Syncope, unspecified syncope type Type 2 diabetes mellitus with diabetic neuropathy, without long-term current use of insulin ([facility]) Screening for diabetic retinopathy Screening for other eye conditions Encounter for immunization Need for other specified prophylactic vaccination against single bacterial disease Tinnitus of both ears Unspecified tinnitus 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) Complaints of leg weakness Other musculoskeletal symptoms referable to limbs [facility] Diagnosis Pre-operative examination- Primary Preoperative examination, unspecified Dupuytren's contracture Contracture of palmar fascia Cerebral aneurysm, nonruptured Essential hypertension Unspecified essential hypertension Mixed hyperlipidemia Gastroesophageal reflux disease, esophagitis presence not specified Generalized anxiety disorder Pre-operative examination- Primary Preoperative examination, unspecified Primary osteoarthritis of right knee Primary localized osteoarthrosis, lower leg Cerebral aneurysm, nonruptured Essential hypertension Unspecified essential hypertension Mixed hyperlipidemia Gastroesophageal reflux disease, unspecified whether esophagitis present 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) Osteoporosis, unspecified Reactive depression Dysthymic disorder Generalized anxiety disorder Venous insufficiency (chronic) (peripheral) Unspecified venous (peripheral) insufficiency Prediabetes Other abnormal glucose SAH (subarachnoid hemorrhage) ([facility])- Primary Subarachnoid hemorrhage Dysphagia, oropharyngeal Dysphagia, oropharyngeal phase Generalized anxiety disorder Respiratory insufficiency Other dyspnea and respiratory abnormality 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) Leukocytosis Leukocytosis, unspecified Elevated lactic acid level Acidosis Dyspepsia Dyspepsia and other specified disorders of function of stomach Edema of both legs Edema Melena Blood in stool Preoperative examination- Primary Preoperative examination, unspecified Cerebral aneurysm, nonruptured Mixed hyperlipidemia Essential hypertension Unspecified essential hypertension Gastroesophageal reflux disease, unspecified whether esophagitis present Type 2 diabetes mellitus without complication, without long-term current use of insulin (HCC) 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 note* Diagnosis Pre-operative examination- Primary Preoperative examination, unspecified Dupuytren's contracture Contracture of palmar fascia Cerebral aneurysm, nonruptured Essential hypertension Unspecified essential hypertension Mixed hyperlipidemia Gastroesophageal reflux disease, esophagitis presence not specified Generalized anxiety disorder Pre-operative examination- Primary Preoperative examination, unspecified Primary osteoarthritis of right knee Primary localized osteoarthrosis, lower leg Cerebral aneurysm, nonruptured Essential hypertension Unspecified essential hypertension Mixed hyperlipidemia Gastroesophageal reflux disease, unspecified whether esophagitis present 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) Osteoporosis, unspecified Reactive depression Dysthymic disorder Generalized anxiety disorder Venous insufficiency (chronic) (peripheral) Unspecified venous (peripheral) insufficiency Prediabetes Other abnormal glucose SAH (subarachnoid hemorrhage) ([facility])- Primary Subarachnoid hemorrhage Dysphagia, oropharyngeal Dysphagia, oropharyngeal phase Generalized anxiety disorder Respiratory insufficiency Other dyspnea and respiratory abnormality 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) Leukocytosis Leukocytosis, unspecified Elevated lactic acid level Acidosis Dyspepsia Dyspepsia and other specified disorders of function of stomach Edema of both legs Edema Melena Blood in stool Preoperative examination- Primary Preoperative examination, unspecified Cerebral aneurysm, nonruptured Mixed hyperlipidemia Essential hypertension Unspecified essential hypertension Gastroesophageal reflux disease, unspecified whether esophagitis present Type 2 diabetes mellitus without complication, without long-term current use of insulin (HCC) 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 note* Diagnosis Pre-operative examination- Primary Preoperative examination, unspecified Dupuytren's contracture Contracture of palmar fascia Cerebral aneurysm, nonruptured Essential hypertension Unspecified essential hypertension Mixed hyperlipidemia Gastroesophageal reflux disease, esophagitis presence not specified Generalized anxiety disorder Pre-operative examination- Primary Preoperative examination, unspecified Primary osteoarthritis of right knee Primary localized osteoarthrosis, lower leg Cerebral aneurysm, nonruptured Essential hypertension Unspecified essential hypertension Mixed hyperlipidemia Gastroesophageal reflux disease, unspecified whether esophagitis present 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) Osteoporosis, unspecified Reactive depression Dysthymic disorder Generalized anxiety disorder Venous insufficiency (chronic) (peripheral) Unspecified venous (peripheral) insufficiency Prediabetes Other abnormal glucose SAH (subarachnoid hemorrhage) ([facility])- Primary Subarachnoid hemorrhage Dysphagia, oropharyngeal Dysphagia, oropharyngeal phase Generalized anxiety disorder Respiratory insufficiency Other dyspnea and respiratory abnormality 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) Leukocytosis Leukocytosis, unspecified Elevated lactic acid level Acidosis Dyspepsia Dyspepsia and other specified disorders of function of stomach Edema of both legs Edema Melena Blood in stool Preoperative examination- Primary Preoperative examination, unspecified Cerebral aneurysm, nonruptured Mixed hyperlipidemia Essential hypertension Unspecified essential hypertension Gastroesophageal reflux disease, unspecified whether esophagitis present Type 2 diabetes mellitus without complication, without long-term current use of insulin (HCC) 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 Diagnosis Pre-operative examination- Primary Preoperative examination, unspecified Dupuytren's contracture Contracture of palmar fascia Cerebral aneurysm, nonruptured Essential hypertension Unspecified essential hypertension Mixed hyperlipidemia Gastroesophageal reflux disease, esophagitis presence not specified Generalized anxiety disorder Pre-operative examination- Primary Preoperative examination, unspecified Primary osteoarthritis of right knee Primary localized osteoarthrosis, lower leg Cerebral aneurysm, nonruptured Essential hypertension Unspecified essential hypertension Mixed hyperlipidemia Gastroesophageal reflux disease, unspecified whether esophagitis present 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) Osteoporosis, unspecified Reactive depression Dysthymic disorder Generalized anxiety disorder Venous insufficiency (chronic) (peripheral) Unspecified venous (peripheral) insufficiency Prediabetes Other abnormal glucose SAH (subarachnoid hemorrhage) (HCC)- Primary Subarachnoid hemorrhage Dysphagia, oropharyngeal Dysphagia, oropharyngeal phase Generalized anxiety disorder Respiratory insufficiency Other dyspnea and respiratory abnormality 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) Leukocytosis Leukocytosis, unspecified Elevated lactic acid level Acidosis Dyspepsia Dyspepsia and other specified disorders of function of stomach Edema of both legs Edema Melena Blood in stool Preoperative examination- Primary Preoperative examination, unspecified Cerebral aneurysm, nonruptured Mixed hyperlipidemia Essential hypertension Unspecified essential hypertension Gastroesophageal reflux disease, unspecified whether esophagitis present Type 2 diabetes mellitus without complication, without long-term current use of insulin (HCC) 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) Generalized anxiety disorder Complaints of leg weakness- Primary Other musculoskeletal symptoms referable to limbs Gait difficulty Abnormality of gait [facility] Diagnosis Pre-operative examination- Primary Preoperative examination, unspecified Dupuytren's contracture Contracture of palmar fascia Cerebral aneurysm, nonruptured Essential hypertension Unspecified essential hypertension Mixed hyperlipidemia Gastroesophageal reflux disease, esophagitis presence not specified Generalized anxiety disorder Pre-operative examination- Primary Preoperative examination, unspecified Primary osteoarthritis of right knee Primary localized osteoarthrosis, lower leg Cerebral aneurysm, nonruptured Essential hypertension Unspecified essential hypertension Mixed hyperlipidemia Gastroesophageal reflux disease, unspecified whether esophagitis present 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) Osteoporosis, unspecified Reactive depression Dysthymic disorder Generalized anxiety disorder Venous insufficiency (chronic) (peripheral) Unspecified venous (peripheral) insufficiency Prediabetes Other abnormal glucose SAH (subarachnoid hemorrhage) ([facility])- Primary Subarachnoid hemorrhage Dysphagia, oropharyngeal Dysphagia, oropharyngeal phase Generalized anxiety disorder Respiratory insufficiency Other dyspnea and respiratory abnormality 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) Leukocytosis Leukocytosis, unspecified Elevated lactic acid level Acidosis Dyspepsia Dyspepsia and other specified disorders of function of stomach Edema of both legs Edema Melena Blood in stool Preoperative examination- Primary Preoperative examination, unspecified Cerebral aneurysm, nonruptured Mixed hyperlipidemia Essential hypertension Unspecified essential hypertension Gastroesophageal reflux disease, unspecified whether esophagitis present Type 2 diabetes mellitus without complication, without long-term current use of insulin (HCC) 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) Generalized anxiety disorder Screening mammogram for breast cancer [facility] Diagnosis Pre-operative examination- Primary Preoperative examination, unspecified Dupuytren's contracture Contracture of palmar fascia Cerebral aneurysm, nonruptured Essential hypertension Unspecified essential hypertension Mixed hyperlipidemia Gastroesophageal reflux disease, esophagitis presence not specified Generalized anxiety disorder Pre-operative examination- Primary Preoperative examination, unspecified Primary osteoarthritis of right knee Primary localized osteoarthrosis, lower leg Cerebral aneurysm, nonruptured Essential hypertension Unspecified essential hypertension Mixed hyperlipidemia Gastroesophageal reflux disease, unspecified whether esophagitis present 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) Osteoporosis, unspecified Reactive depression Dysthymic disorder Generalized anxiety disorder Venous insufficiency (chronic) (peripheral) Unspecified venous (peripheral) insufficiency Prediabetes Other abnormal glucose SAH (subarachnoid hemorrhage) ([facility])- Primary Subarachnoid hemorrhage Dysphagia, oropharyngeal Dysphagia, oropharyngeal phase Generalized anxiety disorder Respiratory insufficiency Other dyspnea and respiratory abnormality 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) Leukocytosis Leukocytosis, unspecified Elevated lactic acid level Acidosis Dyspepsia Dyspepsia and other specified disorders of function of stomach Edema of both legs Edema Melena Blood in stool Preoperative examination- Primary Preoperative examination, unspecified Cerebral aneurysm, nonruptured Mixed hyperlipidemia Essential hypertension Unspecified essential hypertension Gastroesophageal reflux disease, unspecified whether esophagitis present Type 2 diabetes mellitus without complication, without long-term current use of insulin (HCC) 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) Generalized anxiety disorder Complaints of leg weakness- Primary Other musculoskeletal symptoms referable to limbs Gait difficulty Abnormality of gait [facility] Diagnosis Pre-operative examination- Primary Preoperative examination, unspecified Dupuytren's contracture Contracture of palmar fascia Cerebral aneurysm, nonruptured Essential hypertension Unspecified essential hypertension Mixed hyperlipidemia Gastroesophageal reflux disease, esophagitis presence not specified Generalized anxiety disorder Pre-operative examination- Primary Preoperative examination, unspecified Primary osteoarthritis of right knee Primary localized osteoarthrosis, lower leg Cerebral aneurysm, nonruptured Essential hypertension Unspecified essential hypertension Mixed hyperlipidemia Gastroesophageal reflux disease, unspecified whether esophagitis present 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) Osteoporosis, unspecified Reactive depression Dysthymic disorder Generalized anxiety disorder Venous insufficiency (chronic) (peripheral) Unspecified venous (peripheral) insufficiency Prediabetes Other abnormal glucose SAH (subarachnoid hemorrhage) ([facility])- Primary Subarachnoid hemorrhage Dysphagia, oropharyngeal Dysphagia, oropharyngeal phase Generalized anxiety disorder Respiratory insufficiency Other dyspnea and respiratory abnormality Infiltrating ductal carcinoma of left breast ([facility]) Leukocytosis Leukocytosis, unspecified Elevated lactic acid level Acidosis Dyspepsia Dyspepsia and other specified disorders of function of stomach Edema of both legs Edema Melena Blood in stool Preoperative examination- Primary Preoperative examination, unspecified Cerebral aneurysm, nonruptured Mixed hyperlipidemia Essential hypertension Unspecified essential hypertension Gastroesophageal reflux disease, unspecified whether esophagitis present Type 2 diabetes mellitus without complication, without long-term current use of insulin (HCC) 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) Generalized anxiety disorder Bilateral fibrocystic breast changes Personal history of breast cancer Personal history of malignant neoplasm of breast S/P bilateral breast lumpectomy Other postprocedural status Mass of lower outer quadrant of right [facility] Diagnosis Pre-operative examination- Primary Preoperative examination, unspecified Dupuytren's contracture Contracture of palmar fascia Cerebral aneurysm, nonruptured Essential hypertension Unspecified essential hypertension Mixed hyperlipidemia Gastroesophageal reflux disease, esophagitis presence not specified Generalized anxiety disorder Pre-operative examination- Primary Preoperative examination, unspecified Primary osteoarthritis of right knee Primary localized osteoarthrosis, lower leg Cerebral aneurysm, nonruptured Essential hypertension Unspecified essential hypertension Mixed hyperlipidemia Gastroesophageal reflux disease, unspecified whether esophagitis present 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) Osteoporosis, unspecified Reactive depression Dysthymic disorder Generalized anxiety disorder Venous insufficiency (chronic) (peripheral) Unspecified venous (peripheral) insufficiency Prediabetes Other abnormal glucose SAH (subarachnoid hemorrhage) (HCC)- Primary Subarachnoid hemorrhage Dysphagia, oropharyngeal Dysphagia, oropharyngeal phase Generalized anxiety disorder Respiratory insufficiency Other dyspnea and respiratory abnormality 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) Leukocytosis Leukocytosis, unspecified Elevated lactic acid level Acidosis Dyspepsia Dyspepsia and other specified disorders of function of stomach Edema of both legs Edema Melena Blood in stool Preoperative examination- Primary Preoperative examination, unspecified Cerebral aneurysm, nonruptured Mixed hyperlipidemia Essential hypertension Unspecified essential hypertension Gastroesophageal reflux disease, unspecified whether esophagitis present Type 2 diabetes mellitus without complication, without long-term current use of insulin (HCC) 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) Generalized anxiety disorder Complaints of leg weakness- Primary Other musculoskeletal symptoms referable to limbs Gait difficulty Abnormality of gait [facility] Pre-operative examination- Primary Preoperative examination, unspecified Dupuytren's contracture Contracture of palmar fascia Cerebral aneurysm, nonruptured Essential hypertension Unspecified essential hypertension Mixed hyperlipidemia Gastroesophageal reflux disease, esophagitis presence not specified Generalized anxiety disorder Pre-operative examination- Primary Preoperative examination, unspecified Primary osteoarthritis of right knee Primary localized osteoarthrosis, lower leg Cerebral aneurysm, nonruptured Essential hypertension Unspecified essential hypertension Mixed hyperlipidemia Gastroesophageal reflux disease, unspecified whether esophagitis present 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) Osteoporosis, unspecified Reactive depression Dysthymic disorder Generalized anxiety disorder Venous insufficiency (chronic) (peripheral) Unspecified venous (peripheral) insufficiency Prediabetes Other abnormal glucose SAH (subarachnoid hemorrhage) (HCC)- Primary Subarachnoid hemorrhage SAH (subarachnoid hemorrhage) ([facility]) Subarachnoid hemorrhage Dysphagia, oropharyngeal Dysphagia, oropharyngeal phase Generalized anxiety disorder Essential hypertension Unspecified essential hypertension Respiratory insufficiency Other dyspnea and respiratory abnormality Type 2 diabetes mellitus without complication, without long-term current use of insulin (HCC) 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) IVH (intraventricular hemorrhage) (HCC) Intracerebral hemorrhage Obstructive hydrocephalus (HCC) Obstructive hydrocephalus Leukocytosis Leukocytosis, unspecified Obesity, Class I, BMI 30-34.9 Obesity, unspecified Elevated lactic acid level Acidosis Delirium Other alteration of consciousness Dyspepsia Dyspepsia and other specified disorders of function of stomach Edema of both legs Edema Hyponatremia Hyposmolality and/or hyponatremia Melena Blood in stool UTI (urinary tract infection) Urinary tract infection, site not specified Preoperative examination- Primary Preoperative examination, unspecified Cerebral aneurysm, nonruptured Mixed hyperlipidemia Essential hypertension Unspecified essential hypertension Gastroesophageal reflux disease, unspecified whether esophagitis present Type 2 diabetes mellitus without complication, without long-term current use of insulin (HCC) 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) Generalized anxiety disorder Acute right ankle pain documented in this encounter [facility] note* Diagnosis Pre-operative examination- Primary Preoperative examination, unspecified Dupuytren's contracture Contracture of palmar fascia Cerebral aneurysm, nonruptured Essential hypertension Unspecified essential hypertension Mixed hyperlipidemia Gastroesophageal reflux disease, esophagitis presence not specified Generalized anxiety disorder Pre-operative examination- Primary Preoperative examination, unspecified Primary osteoarthritis of right knee Primary localized osteoarthrosis, lower leg Cerebral aneurysm, nonruptured Essential hypertension Unspecified essential hypertension Mixed hyperlipidemia Gastroesophageal reflux disease, unspecified whether esophagitis present 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) Osteoporosis, unspecified Reactive depression Dysthymic disorder Generalized anxiety disorder Venous insufficiency (chronic) (peripheral) Unspecified venous (peripheral) insufficiency Prediabetes Other abnormal glucose SAH (subarachnoid hemorrhage) (HCC)- Primary Subarachnoid hemorrhage Dysphagia, oropharyngeal Dysphagia, oropharyngeal phase Generalized anxiety disorder Respiratory insufficiency Other dyspnea and respiratory abnormality 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) Leukocytosis Leukocytosis, unspecified Elevated lactic acid level Acidosis Dyspepsia Dyspepsia and other specified disorders of function of stomach Edema of both legs Edema Melena Blood in stool Preoperative examination- Primary Preoperative examination, unspecified Cerebral aneurysm, nonruptured Mixed hyperlipidemia Essential hypertension Unspecified essential hypertension Gastroesophageal reflux disease, unspecified whether esophagitis present Type 2 diabetes mellitus without complication, without long-term current use of insulin (HCC) 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) Generalized anxiety disorder Patient left without being seen- Primary Surgical or other procedure not carried out because of patient's decision [facility] Diagnosis Pre-operative examination- Primary Preoperative examination, unspecified Dupuytren's contracture Contracture of palmar fascia Cerebral aneurysm, nonruptured Essential hypertension Unspecified essential hypertension Mixed hyperlipidemia Gastroesophageal reflux disease, esophagitis presence not specified Generalized anxiety disorder Pre-operative examination- Primary Preoperative examination, unspecified Primary osteoarthritis of right knee Primary localized osteoarthrosis, lower leg Cerebral aneurysm, nonruptured Essential hypertension Unspecified essential hypertension Mixed hyperlipidemia Gastroesophageal reflux disease, unspecified whether esophagitis present 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) Osteoporosis, unspecified Reactive depression Dysthymic disorder Generalized anxiety disorder Venous insufficiency (chronic) (peripheral) Unspecified venous (peripheral) insufficiency Prediabetes Other abnormal glucose SAH (subarachnoid hemorrhage) (HCC)- Primary Subarachnoid hemorrhage Dysphagia, oropharyngeal Dysphagia, oropharyngeal phase Cough Preoperative examination- Primary Preoperative examination, unspecified Cerebral aneurysm, nonruptured Mixed hyperlipidemia Essential hypertension Unspecified essential hypertension Gastroesophageal reflux disease, unspecified whether esophagitis present Type 2 diabetes mellitus without complication, without long-term current use of insulin (HCC) 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) Generalized anxiety disorder [facility] Diagnosis Pre-operative examination- Primary Preoperative examination, unspecified Dupuytren's contracture Contracture of palmar fascia Cerebral aneurysm, nonruptured Essential hypertension Unspecified essential hypertension Mixed hyperlipidemia Gastroesophageal reflux disease, esophagitis presence not specified Generalized anxiety disorder Acute left ankle pain Pre-operative examination- Primary Preoperative examination, unspecified Primary osteoarthritis of right knee Primary localized osteoarthrosis, lower leg Cerebral aneurysm, nonruptured Essential hypertension Unspecified essential hypertension Mixed hyperlipidemia Gastroesophageal reflux disease, unspecified whether esophagitis present 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) Osteoporosis, unspecified Reactive depression Dysthymic disorder Generalized anxiety disorder Venous insufficiency (chronic) (peripheral) Unspecified venous (peripheral) insufficiency Prediabetes Other abnormal glucose SAH (subarachnoid hemorrhage) (HCC)- Primary Subarachnoid hemorrhage Dysphagia, oropharyngeal Dysphagia, oropharyngeal phase Preoperative examination- Primary Preoperative examination, unspecified Cerebral aneurysm, nonruptured Mixed hyperlipidemia Essential hypertension Unspecified essential hypertension Gastroesophageal reflux disease, unspecified whether esophagitis present Type 2 diabetes mellitus without complication, without long-term current use of insulin (HCC) 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) Generalized anxiety disorder [facility] Diagnosis Pre-operative examination- Primary Preoperative examination, unspecified Dupuytren's contracture Contracture of palmar fascia Cerebral aneurysm, nonruptured Essential hypertension Unspecified essential hypertension Mixed hyperlipidemia Gastroesophageal reflux disease, esophagitis presence not specified Generalized anxiety disorder Pre-operative examination- Primary Preoperative examination, unspecified Primary osteoarthritis of right knee Primary localized osteoarthrosis, lower leg Cerebral aneurysm, nonruptured Essential hypertension Unspecified essential hypertension Mixed hyperlipidemia Gastroesophageal reflux disease, unspecified whether esophagitis present 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) Osteoporosis, unspecified Reactive depression Dysthymic disorder Generalized anxiety disorder Venous insufficiency (chronic) (peripheral) Unspecified venous (peripheral) insufficiency Prediabetes Other abnormal glucose SAH (subarachnoid hemorrhage) (HCC)- Primary Subarachnoid hemorrhage Dysphagia, oropharyngeal Dysphagia, oropharyngeal phase Generalized anxiety disorder Respiratory insufficiency Other dyspnea and respiratory abnormality 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) Leukocytosis Leukocytosis, unspecified Elevated lactic acid level Acidosis Dyspepsia Dyspepsia and other specified disorders of function of stomach Edema of both legs Edema Melena Blood in stool Preoperative examination- Primary Preoperative examination, unspecified Cerebral aneurysm, nonruptured Mixed hyperlipidemia Essential hypertension Unspecified essential hypertension Gastroesophageal reflux disease, unspecified whether esophagitis present Type 2 diabetes mellitus without complication, without long-term current use of insulin (HCC) 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) Generalized anxiety disorder Type 2 diabetes mellitus with diabetic neuropathy, without long-term current use of insulin (HCC) 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) [facility] Diagnosis Pre-operative examination- Primary Preoperative examination, unspecified Dupuytren's contracture Contracture of palmar fascia Cerebral aneurysm, nonruptured Essential hypertension Unspecified essential hypertension Mixed hyperlipidemia Gastroesophageal reflux disease, esophagitis presence not specified Generalized anxiety disorder Pre-operative examination- Primary Preoperative examination, unspecified Primary osteoarthritis of right knee Primary localized osteoarthrosis, lower leg Cerebral aneurysm, nonruptured Essential hypertension Unspecified essential hypertension Mixed hyperlipidemia Gastroesophageal reflux disease, unspecified whether esophagitis present 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) Osteoporosis, unspecified Reactive depression Dysthymic disorder Generalized anxiety disorder Venous insufficiency (chronic) (peripheral) Unspecified venous (peripheral) insufficiency Prediabetes Other abnormal glucose SAH (subarachnoid hemorrhage) (HCC)- Primary Subarachnoid hemorrhage Dysphagia, oropharyngeal Dysphagia, oropharyngeal phase Generalized anxiety disorder Respiratory insufficiency Other dyspnea and respiratory abnormality 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) Leukocytosis Leukocytosis, unspecified Elevated lactic acid level Acidosis Dyspepsia Dyspepsia and other specified disorders of function of stomach Edema of both legs Edema Melena Blood in stool Preoperative examination- Primary Preoperative examination, unspecified Cerebral aneurysm, nonruptured Mixed hyperlipidemia Essential hypertension Unspecified essential hypertension Gastroesophageal reflux disease, unspecified whether esophagitis present Type 2 diabetes mellitus without complication, without long-term current use of insulin (HCC) 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) Generalized anxiety disorder Invasive ductal carcinoma of breast, 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 [facility] Diagnosis Pre-operative examination- Primary Preoperative examination, unspecified Dupuytren's contracture Contracture of palmar fascia Cerebral aneurysm, nonruptured Essential hypertension Unspecified essential hypertension Mixed hyperlipidemia Gastroesophageal reflux disease, esophagitis presence not specified Generalized anxiety disorder Pre-operative examination- Primary Preoperative examination, unspecified Primary osteoarthritis of right knee Primary localized osteoarthrosis, lower leg Cerebral aneurysm, nonruptured Essential hypertension Unspecified essential hypertension Mixed hyperlipidemia Gastroesophageal reflux disease, unspecified whether esophagitis present 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) Osteoporosis, unspecified Reactive depression Dysthymic disorder Generalized anxiety disorder Venous insufficiency (chronic) (peripheral) Unspecified venous (peripheral) insufficiency Prediabetes Other abnormal glucose SAH (subarachnoid hemorrhage) ([facility])- Primary Subarachnoid hemorrhage Dysphagia, oropharyngeal Dysphagia, oropharyngeal phase Generalized anxiety disorder Respiratory insufficiency Other dyspnea and respiratory abnormality 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) Leukocytosis Leukocytosis, unspecified Elevated lactic acid level Acidosis Dyspepsia Dyspepsia and other specified disorders of function of stomach Edema of both legs Edema Melena Blood in stool Preoperative examination- Primary Preoperative examination, unspecified Cerebral aneurysm, nonruptured Mixed hyperlipidemia Essential hypertension Unspecified essential hypertension Gastroesophageal reflux disease, unspecified whether esophagitis present Type 2 diabetes mellitus without complication, without long-term current use of insulin (HCC) 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) Generalized anxiety disorder Arthritis of hand- Primary Unspecified arthropathy, hand Type 2 diabetes mellitus with diabetic neuropathy, without long-term current use of insulin (HCC) Dupuytren's contracture Contracture of palmar fascia Vitamin D deficiency Unspecified vitamin D deficiency Encounter for long-term current use of medication [facility] Diagnosis Pre-operative examination- Primary Preoperative examination, unspecified Dupuytren's contracture Contracture of palmar fascia Cerebral aneurysm, nonruptured Essential hypertension Unspecified essential hypertension Mixed hyperlipidemia Gastroesophageal reflux disease, esophagitis presence not specified Generalized anxiety disorder Pre-operative examination- Primary Preoperative examination, unspecified Primary osteoarthritis of right knee Primary localized osteoarthrosis, lower leg Cerebral aneurysm, nonruptured Essential hypertension Unspecified essential hypertension Mixed hyperlipidemia Gastroesophageal reflux disease, unspecified whether esophagitis present 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) Osteoporosis, unspecified Reactive depression Dysthymic disorder Generalized anxiety disorder Venous insufficiency (chronic) (peripheral) Unspecified venous (peripheral) insufficiency Prediabetes Other abnormal glucose SAH (subarachnoid hemorrhage) ([facility])- Primary Subarachnoid hemorrhage Dysphagia, oropharyngeal Dysphagia, oropharyngeal phase Generalized anxiety disorder Respiratory insufficiency Other dyspnea and respiratory abnormality 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) Leukocytosis Leukocytosis, unspecified Elevated lactic acid level Acidosis Dyspepsia Dyspepsia and other specified disorders of function of stomach Edema of both legs Edema Melena Blood in stool Preoperative examination- Primary Preoperative examination, unspecified Cerebral aneurysm, nonruptured Mixed hyperlipidemia Essential hypertension Unspecified essential hypertension Gastroesophageal reflux disease, unspecified whether esophagitis present Type 2 diabetes mellitus without complication, without long-term current use of insulin (HCC) 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) Generalized anxiety disorder Arthritis of hand Unspecified arthropathy, hand documented in this encounter [facility] note* Diagnosis Pre-operative examination- Primary Preoperative examination, unspecified Dupuytren's contracture Contracture of palmar fascia Cerebral aneurysm, nonruptured Essential hypertension Unspecified essential hypertension Mixed hyperlipidemia Gastroesophageal reflux disease, esophagitis presence not specified Generalized anxiety disorder Pre-operative examination- Primary Preoperative examination, unspecified Primary osteoarthritis of right knee Primary localized osteoarthrosis, lower leg Cerebral aneurysm, nonruptured Essential hypertension Unspecified essential hypertension Mixed hyperlipidemia Gastroesophageal reflux disease, unspecified whether esophagitis present 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) Osteoporosis, unspecified Reactive depression Dysthymic disorder Generalized anxiety disorder Venous insufficiency (chronic) (peripheral) Unspecified venous (peripheral) insufficiency Prediabetes Other abnormal glucose SAH (subarachnoid hemorrhage) (HCC)- Primary Subarachnoid hemorrhage Dysphagia, oropharyngeal Dysphagia, oropharyngeal phase Generalized anxiety disorder Respiratory insufficiency Other dyspnea and respiratory abnormality 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) Leukocytosis Leukocytosis, unspecified Elevated lactic acid level Acidosis Dyspepsia Dyspepsia and other specified disorders of function of stomach Edema of both legs Edema Melena Blood in stool Preoperative examination- Primary Preoperative examination, unspecified Cerebral aneurysm, nonruptured Mixed hyperlipidemia Essential hypertension Unspecified essential hypertension Gastroesophageal reflux disease, unspecified whether esophagitis present Type 2 diabetes mellitus without complication, without long-term current use of insulin (HCC) 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) Generalized anxiety disorder Primary hypertension- Primary Unspecified essential hypertension Type 2 diabetes mellitus with diabetic neuropathy, without long-term current use of insulin (HCC) Arthritis of hand Unspecified arthropathy, hand Vitamin D deficiency Unspecified vitamin D deficiency Encounter for screening mammogram for breast cancer documented in this encounter [facility] note* Diagnosis Pre-operative examination- Primary Preoperative examination, unspecified Dupuytren's contracture Contracture of palmar fascia Cerebral aneurysm, nonruptured Essential hypertension Unspecified essential hypertension Mixed hyperlipidemia Gastroesophageal reflux disease, esophagitis presence not specified Generalized anxiety disorder Pre-operative examination- Primary Preoperative examination, unspecified Primary osteoarthritis of right knee Primary localized osteoarthrosis, lower leg Cerebral aneurysm, nonruptured Essential hypertension Unspecified essential hypertension Mixed hyperlipidemia Gastroesophageal reflux disease, unspecified whether esophagitis present 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) Osteoporosis, unspecified Reactive depression Dysthymic disorder Generalized anxiety disorder Venous insufficiency (chronic) (peripheral) Unspecified venous (peripheral) insufficiency Prediabetes Other abnormal glucose SAH (subarachnoid hemorrhage) ([facility])- Primary Subarachnoid hemorrhage Dysphagia, oropharyngeal Dysphagia, oropharyngeal phase Generalized anxiety disorder Respiratory insufficiency Other dyspnea and respiratory abnormality 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) Leukocytosis Leukocytosis, unspecified Elevated lactic acid level Acidosis Dyspepsia Dyspepsia and other specified disorders of function of stomach Edema of both legs Edema Melena Blood in stool Preoperative examination- Primary Preoperative examination, unspecified Cerebral aneurysm, nonruptured Mixed hyperlipidemia Essential hypertension Unspecified essential hypertension Gastroesophageal reflux disease, unspecified whether esophagitis present Type 2 diabetes mellitus without complication, without long-term current use of insulin (HCC) 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) Generalized anxiety disorder Type 2 diabetes mellitus without complication, without long-term current use of insulin (HCC)- Primary [facility] Diagnosis Pre-operative examination- Primary Preoperative examination, unspecified Dupuytren's contracture Contracture of palmar fascia Cerebral aneurysm, nonruptured Essential hypertension Unspecified essential hypertension Mixed hyperlipidemia Gastroesophageal reflux disease, esophagitis presence not specified Generalized anxiety disorder Pre-operative examination- Primary Preoperative examination, unspecified Primary osteoarthritis of right knee Primary localized osteoarthrosis, lower leg Cerebral aneurysm, nonruptured Essential hypertension Unspecified essential hypertension Mixed hyperlipidemia Gastroesophageal reflux disease, unspecified whether esophagitis present 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) Osteoporosis, unspecified Reactive depression Dysthymic disorder Generalized anxiety disorder Venous insufficiency (chronic) (peripheral) Unspecified venous (peripheral) insufficiency Prediabetes Other abnormal glucose SAH (subarachnoid hemorrhage) ([facility])- Primary Subarachnoid hemorrhage Dysphagia, oropharyngeal Dysphagia, oropharyngeal phase Generalized anxiety disorder Respiratory insufficiency Other dyspnea and respiratory abnormality 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) Leukocytosis Leukocytosis, unspecified Elevated lactic acid level Acidosis Dyspepsia Dyspepsia and other specified disorders of function of stomach Edema of both legs Edema Melena Blood in stool Preoperative examination- Primary Preoperative examination, unspecified Cerebral aneurysm, nonruptured Mixed hyperlipidemia Essential hypertension Unspecified essential hypertension Gastroesophageal reflux disease, unspecified whether esophagitis present Type 2 diabetes mellitus without complication, without long-term current use of insulin (HCC) 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) Generalized anxiety disorder Type 2 diabetes mellitus with diabetic neuropathy, without long-term current use of insulin (HCC)- [facility] Diagnosis Pre-operative examination- Primary Preoperative examination, unspecified Dupuytren's contracture Contracture of palmar fascia Cerebral aneurysm, nonruptured Essential hypertension Unspecified essential hypertension Mixed hyperlipidemia Gastroesophageal reflux disease, esophagitis presence not specified Generalized anxiety disorder Pre-operative examination- Primary Preoperative examination, unspecified Primary osteoarthritis of right knee Primary localized osteoarthrosis, lower leg Cerebral aneurysm, nonruptured Essential hypertension Unspecified essential hypertension Mixed hyperlipidemia Gastroesophageal reflux disease, unspecified whether esophagitis present 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) Osteoporosis, unspecified Reactive depression Dysthymic disorder Generalized anxiety disorder Venous insufficiency (chronic) (peripheral) Unspecified venous (peripheral) insufficiency Prediabetes Other abnormal glucose SAH (subarachnoid hemorrhage) ([facility])- Primary Subarachnoid hemorrhage Dysphagia, oropharyngeal Dysphagia, oropharyngeal phase Generalized anxiety disorder Respiratory insufficiency Other dyspnea and respiratory abnormality 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) Leukocytosis Leukocytosis, unspecified Elevated lactic acid level Acidosis Dyspepsia Dyspepsia and other specified disorders of function of stomach Edema of both legs Edema Melena Blood in stool Preoperative examination- Primary Preoperative examination, unspecified Cerebral aneurysm, nonruptured Mixed hyperlipidemia Essential hypertension Unspecified essential hypertension Gastroesophageal reflux disease, unspecified whether esophagitis present Type 2 diabetes mellitus without complication, without long-term current use of insulin (HCC) 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) Generalized anxiety disorder Intracranial aneurysm- Primary Cerebral aneurysm, nonruptured Nonruptured cerebral aneurysm Cerebral aneurysm, nonruptured Screening for nephropathy [facility] Diagnosis Pre-operative examination- Primary Preoperative examination, unspecified Dupuytren's contracture Contracture of palmar fascia Cerebral aneurysm, nonruptured (HCC) Cerebral aneurysm, nonruptured Essential hypertension Unspecified essential hypertension Mixed hyperlipidemia Gastroesophageal reflux disease, esophagitis presence not specified Generalized anxiety disorder Pre-operative examination- Primary Preoperative examination, unspecified Primary osteoarthritis of right knee Primary localized osteoarthrosis, lower leg Cerebral aneurysm, nonruptured (HCC) Cerebral aneurysm, nonruptured Essential hypertension Unspecified essential hypertension Mixed hyperlipidemia Gastroesophageal reflux disease, unspecified whether esophagitis present 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) Osteoporosis, unspecified Reactive depression Dysthymic disorder Generalized anxiety disorder Venous insufficiency (chronic) (peripheral) Unspecified venous (peripheral) insufficiency Prediabetes Other abnormal glucose SAH (subarachnoid hemorrhage) ([facility])- Primary Subarachnoid hemorrhage Dysphagia, oropharyngeal Dysphagia, oropharyngeal phase Generalized anxiety disorder Respiratory insufficiency Other dyspnea and respiratory abnormality 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) Leukocytosis Leukocytosis, unspecified Elevated lactic acid level Acidosis Dyspepsia Dyspepsia and other specified disorders of function of stomach Edema of both legs Edema Melena Blood in stool Preoperative examination- Primary Preoperative examination, unspecified Cerebral aneurysm, nonruptured (HCC) Cerebral aneurysm, nonruptured Mixed hyperlipidemia Essential hypertension Unspecified essential hypertension Gastroesophageal reflux disease, unspecified whether esophagitis present Type 2 diabetes mellitus without complication, without long-term current use of insulin (HCC) 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) Generalized anxiety disorder Urinary frequency- Primary Acute UTI Urinary tract infection, site not specified [facility] Diagnosis Pre-operative examination- Primary Preoperative examination, unspecified Dupuytren's contracture Contracture of palmar fascia Cerebral aneurysm, nonruptured (HCC) Cerebral aneurysm, nonruptured Essential hypertension Unspecified essential hypertension Mixed hyperlipidemia Gastroesophageal reflux disease, esophagitis presence not specified Generalized anxiety disorder Pre-operative examination- Primary Preoperative examination, unspecified Primary osteoarthritis of right knee Primary localized osteoarthrosis, lower leg Cerebral aneurysm, nonruptured (HCC) Cerebral aneurysm, nonruptured Essential hypertension Unspecified essential hypertension Mixed hyperlipidemia Gastroesophageal reflux disease, unspecified whether esophagitis present 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) Osteoporosis, unspecified Reactive depression Dysthymic disorder Generalized anxiety disorder Venous insufficiency (chronic) (peripheral) Unspecified venous (peripheral) insufficiency Prediabetes Other abnormal glucose SAH (subarachnoid hemorrhage) ([facility])- Primary Subarachnoid hemorrhage Dysphagia, oropharyngeal Dysphagia, oropharyngeal phase Generalized anxiety disorder Respiratory insufficiency Other dyspnea and respiratory abnormality 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) Leukocytosis Leukocytosis, unspecified Elevated lactic acid level Acidosis Dyspepsia Dyspepsia and other specified disorders of function of stomach Edema of both legs Edema Melena Blood in stool Preoperative examination- Primary Preoperative examination, unspecified Cerebral aneurysm, nonruptured (HCC) Cerebral aneurysm, nonruptured Mixed hyperlipidemia Essential hypertension Unspecified essential hypertension Gastroesophageal reflux disease, unspecified whether esophagitis present Type 2 diabetes mellitus without complication, without long-term current use of insulin (HCC) 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) Generalized anxiety disorder DM type 2 with diabetic peripheral neuropathy (HCC)- Primary Type II or unspecified type diabetes mellitus with neurological manifestations, not stated as uncontrolled Disease related peripheral neuropathy Other specified idiopathic peripheral neuropathy Cerebral aneurysm (HCC) Cerebral aneurysm, nonruptured Lesions of both ulnar nerves [facility] Diagnosis Pre-operative examination- Primary Preoperative examination, unspecified Dupuytren's contracture Contracture of palmar fascia Cerebral aneurysm, nonruptured (HCC) Cerebral aneurysm, nonruptured Essential hypertension Unspecified essential hypertension Mixed hyperlipidemia Gastroesophageal reflux disease, esophagitis presence not specified Generalized anxiety disorder Pre-operative examination- Primary Preoperative examination, unspecified Primary osteoarthritis of right knee Primary localized osteoarthrosis, lower leg Cerebral aneurysm, nonruptured (HCC) Cerebral aneurysm, nonruptured Essential hypertension Unspecified essential hypertension Mixed hyperlipidemia Gastroesophageal reflux disease, unspecified whether esophagitis present 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) Osteoporosis, unspecified Reactive depression Dysthymic disorder Generalized anxiety disorder Venous insufficiency (chronic) (peripheral) Unspecified venous (peripheral) insufficiency Prediabetes Other abnormal glucose SAH (subarachnoid hemorrhage) (HCC)- Primary Subarachnoid hemorrhage Dysphagia, oropharyngeal Dysphagia, oropharyngeal phase Generalized anxiety disorder Respiratory insufficiency Other dyspnea and respiratory abnormality 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) Leukocytosis Leukocytosis, unspecified Elevated lactic acid level Acidosis Dyspepsia Dyspepsia and other specified disorders of function of stomach Edema of both legs Edema Melena Blood in stool Preoperative examination- Primary Preoperative examination, unspecified Cerebral aneurysm, nonruptured (HCC) Cerebral aneurysm, nonruptured Mixed hyperlipidemia Essential hypertension Unspecified essential hypertension Gastroesophageal reflux disease, unspecified whether esophagitis present Type 2 diabetes mellitus without complication, without long-term current use of insulin (HCC) 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) Generalized anxiety disorder Urinary tract infection without hematuria, site unspecified- Primary documented in this encounter [facility] note* Diagnosis Pre-operative examination- Primary Preoperative examination, unspecified Dupuytren's contracture Contracture of palmar fascia Cerebral aneurysm, nonruptured (HCC) Cerebral aneurysm, nonruptured Essential hypertension Unspecified essential hypertension Mixed hyperlipidemia Gastroesophageal reflux disease, esophagitis presence not specified Generalized anxiety disorder Pre-operative examination- Primary Preoperative examination, unspecified Primary osteoarthritis of right knee Primary localized osteoarthrosis, lower leg Cerebral aneurysm, nonruptured (HCC) Cerebral aneurysm, nonruptured Essential hypertension Unspecified essential hypertension Mixed hyperlipidemia Gastroesophageal reflux disease, unspecified whether esophagitis present 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) Osteoporosis, unspecified Reactive depression Dysthymic disorder Generalized anxiety disorder Venous insufficiency (chronic) (peripheral) Unspecified venous (peripheral) insufficiency Prediabetes Other abnormal glucose SAH (subarachnoid hemorrhage) ([facility])- Primary Subarachnoid hemorrhage Dysphagia, oropharyngeal Dysphagia, oropharyngeal phase Generalized anxiety disorder Respiratory insufficiency Other dyspnea and respiratory abnormality 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) Leukocytosis Leukocytosis, unspecified Elevated lactic acid level Acidosis Dyspepsia Dyspepsia and other specified disorders of function of stomach Edema of both legs Edema Melena Blood in stool Preoperative examination- Primary Preoperative examination, unspecified Cerebral aneurysm, nonruptured (HCC) Cerebral aneurysm, nonruptured Mixed hyperlipidemia Essential hypertension Unspecified essential hypertension Gastroesophageal reflux disease, unspecified whether esophagitis present Type 2 diabetes mellitus without complication, without long-term current use of insulin (HCC) 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) Generalized anxiety disorder Type 2 diabetes mellitus with diabetic neuropathy, without long-term current use of insulin (HCC) [facility] Diagnosis Pre-operative examination- Primary Preoperative examination, unspecified Dupuytren's contracture Contracture of palmar fascia Cerebral aneurysm, nonruptured (HCC) Cerebral aneurysm, nonruptured Essential hypertension Unspecified essential hypertension Mixed hyperlipidemia Gastroesophageal reflux disease, esophagitis presence not specified Generalized anxiety disorder Pre-operative examination- Primary Preoperative examination, unspecified Primary osteoarthritis of right knee Primary localized osteoarthrosis, lower leg Cerebral aneurysm, nonruptured (HCC) Cerebral aneurysm, nonruptured Essential hypertension Unspecified essential hypertension Mixed hyperlipidemia Gastroesophageal reflux disease, unspecified whether esophagitis present 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) Osteoporosis, unspecified Reactive depression Dysthymic disorder Generalized anxiety disorder Venous insufficiency (chronic) (peripheral) Unspecified venous (peripheral) insufficiency Prediabetes Other abnormal glucose SAH (subarachnoid hemorrhage) ([facility])- Primary Subarachnoid hemorrhage Dysphagia, oropharyngeal Dysphagia, oropharyngeal phase Generalized anxiety disorder Respiratory insufficiency Other dyspnea and respiratory abnormality 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) Leukocytosis Leukocytosis, unspecified Elevated lactic acid level Acidosis Dyspepsia Dyspepsia and other specified disorders of function of stomach Edema of both legs Edema Melena Blood in stool Preoperative examination- Primary Preoperative examination, unspecified Cerebral aneurysm, nonruptured (HCC) Cerebral aneurysm, nonruptured Mixed hyperlipidemia Essential hypertension Unspecified essential hypertension Gastroesophageal reflux disease, unspecified whether esophagitis present Type 2 diabetes mellitus without complication, without long-term current use of insulin (HCC) 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) Generalized anxiety disorder Frequent falls- Primary Personal history of fall Failure to thrive in adult Adult failure to thrive Dementia with other behavioral disturbance, unspecified dementia severity, unspecified dementia type (HCC) Primary hypertension Unspecified essential hypertension Urinary tract infection without hematuria, site unspecified Type 2 diabetes mellitus with diabetic neuropathy, without long-term current use of insulin (HCC) 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) documented in this encounter [facility] Discharge instructions Additional Instructions Follow-up with your doctor to ensure you are improving. Antivert for dizziness. Return if feeling worse.[facility] Work Phone: Reason for referral (narrative)* Diagnostic Procedure Only (Routine) - Closed Specialty Diagnoses / Procedures Referred By George mckeon Referred To Contact XR IMAGING Diagnoses Right knee pain, unspecified chronicity Procedures XR KNEE POST OP 3V AP/LAT/MERCHANT RIGHT RADIOLOGIC EXAMINATION KNEE 3 VIEWS Rigoberto Chase APRN.CNP [address] [address] Xr Imaging Referral ID Status Reason Start Date Expiration Date V isits Requested Visits Authorized [id number] Closed Auto-Generate d Referral 07/18/2021 08/16/2022 1 1 [facility] for referral (narrative)* Diagnostic Procedure Only (Urgent) - Closed Specialty Diagnoses / Procedures Referred By Contac mike Referred To Contact XR IMAGING Diagnoses Acute right ankle pain Procedures XR ANKLE GENERAL 3V AP/LAT/OBL RIGHT RADEX ANKLE COMPLETE MINIMUM 3 VIEWS Ruiz Serrato APRN.CNP [address] [place] [address] Xr Imaging Referral ID Status Reason Start Date Expiration Date V isits Requested Visits Authorized [id number] Closed Auto-Generate d Referral 10/08/2021 11/07/2022 1 1 [facility] for referral (narrative)* Diagnostic Procedure Only (Routine) - Authorized Specialty Diagnoses / Procedures Referred By Contac t Referred To Contact BR IMAGING Diagnoses Screening breast examination Procedures WILLIE SCREENING SCREENING MAMMOGRAPHY BI 2-VIEW BREAST INC CAD Sheela Celeste PA-C [address] [employer] [place] [address] Br Imaging [address] [place] [address] Referral ID Status Reason Start Date Expiration Date Visits Requested Visits Authorized [id number] Authorized Auto-Generat ed Referral 12/23/2022 01/22/2024 1 1 [facility] for referral (narrative)* Diagnostic Procedure Only (Routine) - Pending Review Specialty Diagnoses / Procedures Referred By George t Referred To Contact BR IMAGING Diagnoses Bilateral fibrocystic breast changes Personal history of breast cancer S/P bilateral breast lumpectomy Mass of lower outer quadrant of right breast Procedures US BREAST LTD RIGHT US BREAST UNI REAL TIME WITH IMAGE LIMITED Sheela Celeste PA-C [address] [employer] [address] [address] Br Imaging [address] [employer] [address] [address] Referral ID Status Reason Start Date Expiration Date Visits Requested Visits Authorized [id number] Pending Review Auto-Generat ed Referral 12/24/2022 01/23/2024 1 1 * Diagnostic Procedure Only (Routine) - Authorized Specialty Diagnoses / Procedures Referred By Contmeredith t Referred To Contact BR IMAGING Diagnoses Bilateral fibrocystic breast changes Personal history of breast cancer S/P bilateral breast lumpectomy Mass of lower outer quadrant of right breast Procedures WILLIE DIAGNOSTIC BILATERAL DIAGNOSTIC MAMMOGRAPHY COMPUTER-AIDED DETCJ BI Sheela Celeste PA-C [address] [place] [address] Br [address] [place] [phone] Referral ID Status Reason Start Date Expiration Date Visits Requested Visits Authorized [id number] Authorized Auto-Generat ed Referral 12/24/2022 01/23/2024 1 1 [facility] for referral (narrative)* Diagnostic Procedure Only (Routine) - Closed Specialty Diagnoses / Procedures Referred By Contac t Referred To Contact MR IMAGING Diagnoses Intracranial aneurysm Procedures MRA BRAIN WO/W IVCON MRA; HEAD W & WO CONTRAST Adeline Mares, MANUAL LATHE OPERATOR [address] [place] [address] Mr Imaging [facility] Referral ID Status Reason Start Date Expiration Date Visits Re quested Visits Authorized [id number] Closed 02/27/2023 03/29/2023 1 1 [facility] for referral (narrative)* Diagnostic Procedure Only (Routine) - Authorized Specialty Diagnoses / Procedures Referred By Contac t Referred To Contact BR IMAGING Diagnoses Screening mammogram for breast cancer Procedures WILLIE SCREENING W AVNI SCREENING DIGITAL BREAST TOMOSYNTHESIS BI SCREENING MAMMOGRAPHY BI 2-VIEW BREAST INC Bradford Walters APRN.DEFLECTOR OPERATOR [address] [place] [address] Br Imaging [address] [place] [phone] Referral ID Status Reason Start Date Expiration Date Visits Requested Visits Authorized [id number] Authorized Auto-Generat ed Referral 01/01/2024 01/30/2025 1 1 [facility] for referral (narrative)* Diagnostic Procedure Only (Urgent) - Closed Specialty Diagnoses / Procedures Referred By Contac t Referred To Contact XR IMAGING Diagnoses Acute left ankle pain Foot pain, left Procedures XR FOOT GENERAL 3V AP/LAT/OBL LEFT RADEX FOOT COMPLETE MINIMUM 3 VIEWS Ruiz Serrato APRN.MANUAL LATHE OPERATOR [address] [place] [address] [place] [address] Referral ID Status Reason Start Date Expiration Date V isits Requested Visits Authorized [id number] Closed Auto-Generate d Referral 10/14/2023 11/12/2024 1 1 * Diagnostic Procedure Only (Urgent) - Closed Specialty Diagnoses / Procedures Referred By Contac t Referred To Contact XR IMAGING Diagnoses Acute left ankle pain Foot pain, left Procedures XR ANKLE GENERAL 3V AP/LAT/OBL LEFT RADEX ANKLE COMPLETE MINIMUM 3 VIEWS Ruiz Serrato APRN.MANUAL LATHE OPERATOR [address] [place] [address] [place] [address] Referral ID Status Reason Start Date Expiration Date V isits Requested Visits Authorized [id number] Closed Auto-Generate d Referral 10/14/2023 11/12/2024 1 1 [facility] for referral (narrative)* Diagnostic Procedure Only (Routine) - Closed Specialty Diagnoses / Procedures Referred By Contac t Referred To Contact BR IMAGING Diagnoses Screening mammogram for breast cancer Procedures WILLIE SCREENING W AVNI SCREENING DIGITAL BREAST TOMOSYNTHESIS BI SCREENING MAMMOGRAPHY BI 2-VIEW BREAST INC Bradford Walters APRN.DEFLECTOR OPERATOR [address] [place] [address] Br Imaging [address] [place] [address] Referral ID Status Reason Start Date Expiration Date V isits Requested Visits Authorized [id number] Closed Auto-Generate d Referral 01/01/2024 01/30/2025 1 1 [facility] for referral (narrative)* Diagnostic Procedure Only (Routine) - Closed Specialty Diagnoses / Procedures Referred By Contac t Referred To Contact BR IMAGING Diagnoses Bilateral fibrocystic breast changes Personal history of breast cancer S/P bilateral breast lumpectomy Mass of lower outer quadrant of right breast Procedures US BREAST LTD RIGHT US BREAST UNI REAL TIME WITH IMAGE LIMITED Sheela Celeste PA-C [address] [place] [address] Br Imaging [address] [place] [address] Referral ID Status Reason Start Date Expiration Date V isits Requested Visits Authorized [id number] Closed Auto-Generate d Referral 12/24/2022 01/23/2024 1 1 [facility] for referral (narrative)* Diagnostic Procedure Only (Urgent) - Closed Specialty Diagnoses / Procedures Referred By Contac t Referred To Contact XR IMAGING Diagnoses Acute right ankle pain Procedures XR ANKLE GENERAL 3V AP/LAT/OBL RIGHT RADEX ANKLE COMPLETE MINIMUM 3 VIEWS Ruiz Serrato, FILM AND VIDEO EDITOR.MANUAL LATHE OPERATOR [address] [facility] [place] [address] Xr Imaging [facility] Referral ID Status Reason Start Date Expiration Date V isits Requested Visits Authorized [id number] Closed Auto-Generate d Referral 10/08/2021 11/07/2022 1 1 [facility] for referral (narrative)* Diagnostic Procedure Only (Routine) - Closed Specialty Diagnoses / Procedures Referred By Contac t Referred To Contact XR IMAGING Diagnoses Arthritis of hand Procedures XR HAND GENERAL 3V PA/LAT/OBL BILATERAL RADEX HAND MINIMUM 3 VIEWS Ruddy Cooper MD [address] [place] [address] [place] [address] Referral ID Status Reason Start Date Expiration Date V isits Requested Visits Authorized [id number] Closed Auto-Generate d Referral 02/26/2024 03/27/2025 1 1 [facility] for referral (narrative)No reason for referral information availableWC[facility] Work Phone: Reason for visit Narrative* Diagnostic Procedure Only (Routine) - Authorized Specialty Diagnoses / Procedures [facility] Diagnoses Screening breast examination Procedures WILLIE SCREENING SCREENING MAMMOGRAPHY BI 2-VIEW BREAST INC CAD Sheela Celeste PA-C [address] [place] [address] Br Imaging [address] [place] [address] Referral ID Status Reason Start Date Expiration Date Visits Requested Visits Authorized [id number] Authorized Auto-Generat ed Referral 12/23/2022 01/22/2024 1 1 [facility] for visit Narrative* Diagnostic Procedure Only (Routine) - Closed Specialty Diagnoses / Procedures [facility] To Contact MR IMAGING Diagnoses Intracranial aneurysm Procedures MRA BRAIN WO/W IVCON MRA; HEAD W & WO CONTRAST Adeline Mares, FILM AND VIDEO EDITOR.MANUAL LATHE OPERATOR [address] [place] [address] Mr Imaging [facility] Referral ID Status Reason Start Date Expiration Date Visits Re quested Visits Authorized [id number] Closed 02/27/2023 03/29/2023 1 1 [facility] for visit Narrative* Diagnostic Procedure Only (Routine) - Closed Specialty Diagnoses / Procedures [facility] Ref[facility] To Contact CT IMAGING Diagnoses History of abdominal surgery Abdominal pain, chronic, generalized Procedures CT ABD/PEL WO IVCON CT ABD & PELVIS W/O CONTRAST Bradford Love, FILM AND VIDEO EDITOR.DEFLECTOR OPERATOR [address] [place] [address] Ct Imaging [facility] Referral ID Status Reason Start Date Expiration Date V isits Requested Visits Authorized [id number] Closed Auto-Generate d Referral 09/23/2023 10/23/2023 2 1 [facility] for visit Narrative* Diagnostic Procedure Only (Urgent) - Closed Specialty Diagnoses / Procedures [facility] Referred To Contact XR IMAGING Diagnoses Acute left ankle pain Foot pain, left Procedures XR FOOT GENERAL 3V AP/LAT/OBL LEFT RADEX FOOT COMPLETE MINIMUM 3 VIEWS Ruiz Serrato, FILM AND VIDEO EDITOR.MANUAL LATHE OPERATOR [address] [place] [address] [place] [address] Referral ID Status Reason Start Date Expiration Date V isits Requested Visits Authorized [id number] Closed Auto-Generate d Referral 10/14/2023 11/12/2024 1 1 [facility] for visit Narrative* Diagnostic Procedure Only (Routine) - Closed Specialty Diagnoses / Procedures Referred By Contac t Referred To Contact BR IMAGING Diagnoses Screening mammogram for breast cancer Procedures WILLIE SCREENING W AVNI SCREENING DIGITAL BREAST TOMOSYNTHESIS BI SCREENING MAMMOGRAPHY BI 2-VIEW BREAST INC Bradford Walters, FILM AND VIDEO EDITOR.DEFLECTOR OPERATOR [address] [place] [address] Br Imaging [address] [place] [address] Referral ID Status Reason Start Date Expiration Date V isits Requested Visits Authorized [id number] Closed Auto-Generate d Referral 01/01/2024 01/30/2025 1 1 [facility] for visit Narrative* Diagnostic Procedure Only (Urgent) - Closed Specialty Diagnoses / Procedures Referred By Contac t Referred To Contact XR IMAGING Diagnoses Acute right ankle pain Procedures XR ANKLE GENERAL 3V AP/LAT/OBL RIGHT RADEX ANKLE COMPLETE MINIMUM 3 VIEWS Ruiz Serrato, FILM AND VIDEO EDITOR.MANUAL LATHE OPERATOR [address] [place] [address] [place] [address] Referral ID Status Reason Start Date Expiration Date V isits Requested Visits Authorized [id number] Closed Auto-Generate d Referral 10/08/2021 11/07/2022 1 1 [facility] for visit Narrative* Diagnostic Procedure Only (Routine) - Closed Specialty Diagnoses / Procedures Referred By Contac t Referred To Contact XR IMAGING Diagnoses Arthritis of hand Procedures XR HAND GENERAL 3V PA/LAT/OBL BILATERAL RADEX HAND MINIMUM 3 VIEWS Ruddy Cooper MD [address] [place] [address] [place] [address] Referral ID Status Reason Start Date Expiration Date V isits Requested Visits Authorized [id number] Closed Auto-Generate d Referral 02/26/2024 03/27/2025 1 1 [facility] Summary Purpose Family History Relationship Condition Age at Onset Recorded Date/T jordana Not Specified Hemorrhagic disorder Unknown mother Malignant neoplasm of breast Unknown Hypertension Unknown Alzheimer's disease Unknown aunt Malignant neoplasm of breast Unknown father Coronary artery disease Unknown sister Alzheimer's disease Unknown Advance Directives Documents on File Type Date Recorded Patient Group Therapist Expl anation Advance Directive(s) 03/14/2021 1:43 PM Advance Directive(s) 01/22/2021 7:56 PM Advance Directive(s) 12/06/2020 8:39 AM Advance Directive(s) 08/07/2020 9:18 AM Advance Directive(s) 07/21/2020 1:08 PM Advance Directive(s) 02/12/2020 6:59 PM Advance Directive(s) 02/09/2020 10:46 AM Advance Directive(s) 01/26/2020 1:54 PM Advance Directive(s) 01/18/2020 2:38 PM Advance Directive(s) 01/05/2019 7:04 AM Latest Code Status on File Code Status Date Activated Date Inactivated Comments Full Code 01/23/2021 8:11 AM 02/02/2021 2:45 PM Full Code Order Discussed With: Patient Full Code 08/09/2020 8:12 PM 12/06/2020 8:36 AM Documents on File Type Date Recorded Patient Group Therapist Expl anation Advance Directive(s) 03/14/2021 1:43 PM Advance Directive(s) 01/22/2021 7:56 PM Advance Directive(s) 12/06/2020 8:39 AM Advance Directive(s) 08/07/2020 9:18 AM Advance Directive(s) 07/21/2020 1:08 PM Advance Directive(s) 02/12/2020 6:59 PM Advance Directive(s) 02/09/2020 10:46 AM Advance Directive(s) 01/26/2020 1:54 PM Advance Directive(s) 01/18/2020 2:38 PM Advance Directive(s) 01/05/2019 7:04 AM Latest Code Status on File Code Status Date Activated Date Inactivated Comments Full Code 01/23/2021 8:11 AM 02/02/2021 2:45 PM Full Code 08/09/2020 8:12 PM 12/06/2020 8:36 AM Advance Directive Response Recorded Date/ Time Advance Directives Yes July 06 016 10:32am Living Will Yes August 29, 2021 10 :31pm Power of Carton Folder Yes August 29, 2021 10:31pm Latest Code Status on File Code Status Date Activated Date Inactivated Comments Full Code 01/23/2021 8:11 AM 02/02/2021 2:45 PM Question Answer Comments Full Code Order Discussed With: Patient Code Status History Code Status Date Activated Date Inactivated Comments Full Code 08/09/2020 8:12 PM 12/06/2020 8:36 AM Latest Code Status on File Code Status Date Activated Date Inactivated Comments Full Code 01/23/2021 8:11 AM 02/02/2021 2:45 PM Question Answer Comments Full Code Order Discussed With: Patient Code Status History Code Status Date Activated Date Inactivated Comments Full Code 08/09/2020 8:12 PM 12/06/2020 8:36 AM Latest Code Status on File Code Status Date Activated Date Inactivated Comments Full Code 01/23/2021 8:11 AM 02/02/2021 2:45 PM Question Answer Comments Full Code Order Discussed With: Patient Date Activated Date Inactivated Comments 01/23/2021 8:11 AM 02/02/2021 2:45 PM Question Answer Comments Full Code Order Discussed With: Patient Date Activated Date Inactivated Comments 08/09/2020 8:12 PM 12/06/2020 8:36 AM Date Activated Date Inactivated Comments 01/23/2021 8:11 AM 02/02/2021 2:45 PM Question Answer Comments Full Code Order Discussed With: Patient Date Activated Date Inactivated Comments 08/09/2020 8:12 PM 12/06/2020 8:36 AM Advance Directive Response Recorded Date/ Time Do you have a Healthcare Power of Carton Folder? Yes August 26, 2024 12:16am Do you have a Healthcare Power of Carton Folder? Yes September 08, 2024 10:13pm Advance Directives Yes July 06 016 10:32am Chief Complaint and Reason for Visit Chief Complaint PAIN CONTROL Reason for Visit Bacteria in urine Creatinine elevation Hydronephrosis with urinary obstruction due to ureteral calculus Chief Complaint Admit Date SERIAL FALLS ADULT FTT August 25, 2024 11:50pm SERIAL FALLS ADULT FTT August 26, 2024 10: 24am SERIAL FALLS ADULT FTT August 27, 2024 10: 42am SERIAL FALLS ADULT FTT August 28, 2024 10: 41am SERIAL FALLS ADULT FTT August 29, 2024 12: 01am SERIAL FALLS ADULT FTT August 30, 2024 8:2 8am weakness, dizziness September 08, 2024 10:10 pm Reason for Visit Admit Date Adult failure to thrive August 25, 2024 11:50pm Multiple falls August 25, 2024 11: 50pm Physical debility August 25, 2024 11: 50pm Medications Administered Section Inactive Administered Medications - up to 3 most recent administrations Medication Order MAR Action Action Date Dose Rate Site zoledronic acid 3.5 mg in NaCl 0.9% 100 mL (ZOMETA) 3.5 mg, INTRAVENOUS, Administer over 15 Minutes, ONCE, 1 dose, On Fri10/23/21 at 1130, Hazardous Potential Reproductive Risk Drug: Use appropriate PPE. Refrigerate. New Bag/Syringe/Bottle 10/23/2021 11:32 AM EDT 3.5 mg Inactive Administered Medications - up to 3 most recent administrations Medication Order MAR Action Action Date Dose Rate Site zoledronic acid 3.5 mg in NaCl 0.9% 100 mL (ZOMETA) 3.5 mg, INTRAVENOUS, Administer over 15 Minutes, ONCE, 1 dose, On Safia 04/18/22 at 1200, Hazardous Potential Reproductive Risk Drug: Use appropriate PPE. Refrigerate. New Bag/Syringe/Bottle 04/18/2022 11:46 AM EST 3.5 mg Reason for Referral Specialty Diagnoses / Procedures Referred By George mckeon Referred To Contact [facility] Diagnoses Insufficiency of right posterior tibial tendon Procedures PT REHAB FOLLOW UP ORDER THERAPEUTIC EXERCISES RE, EA 15 MIN. Pt [facility] [address] [place] [address] [facility] [address] [place] [address] Referral ID Status Reason Start Date Expiration Date Visits Requested Visits Authorized [id number] Pending Review PCP Requested Referral Auto-Generate d Referral 10/31/2021 01/29/2022 1 1 Specialty Diagnoses / Procedures Referred By George mckeon Referred To Contact MR IMAGING Diagnoses Intracranial aneurysm Procedures MRA BRAIN WO/W IVCON MRA; HEAD W & WO CONTRAST Adeline Mares, FILM AND VIDEO EDITOR.MANUAL LATHE OPERATOR [address] [place] [address] Mr Imaging Referral ID Status Reason Start Date Expiration Date Visits Requested Visits Authorized [id number] Pending Review Auto-Generat ed Referral 02/26/2023 03/31/2023 1 1 Specialty Diagnoses / Procedures Referred By Contac t Referred To Contact MR IMAGING Diagnoses Nonruptured cerebral aneurysm Procedures MRA BRAIN WO/W IVCON MRA; HEAD W & WO CONTRAST Gamaliel Reardon, FILM AND VIDEO EDITOR.MANUAL LATHE OPERATOR [address] [place] [address] [place] [address] Referral ID Status Reason Start Date Expiration Date V isits Requested Visits Authorized [id number] Closed Auto-Generate d Referral 02/18/2022 03/20/2022 1 1 Specialty Diagnoses / Procedures Referred By Contac t Referred To Contact [facility] Diagnoses Gait difficulty Complaints of leg weakness Procedures CONSULT TO PHYSICAL THERAPY PHYSICAL THERAPY EVALUATION HIGH COMPLEX 45 MINS Bradford Love, FILM AND VIDEO EDITOR.DEFLECTOR OPERATOR [address] [place] [address] [facility] [place] [address] Referral ID Status Reason Start Date Expiration Date Visits Requested Visits Authorized [id number] Pending Review Auto-Generat ed Referral 09/08/2023 09/07/2024 1 1 Specialty Diagnoses / Procedures Referred By Contac t Referred To Contact CT IMAGING Diagnoses History of abdominal surgery Abdominal pain, chronic, generalized Procedures CT ABD/PEL WO IVCON CT ABD & PELVIS W/O CONTRAST Bradford Love, FILM AND VIDEO EDITOR.DEFLECTOR OPERATOR [address] [place] [address] [place] [address] Referral ID Status Reason Start Date Expiration Date Visits Requested Visits Authorized [id number] Pending Review Auto-Generat ed Referral 09/08/2023 10/07/2024 1 1 Specialty Diagnoses / Procedures Referred By Contac t Referred To Contact Ophthalmology Diagnoses Screening for diabetic retinopathy Procedures CONSULT TO OPHTHALMOLOGY OFFICE/OUTPATIENT [facility] 60 MINUTES Bradford Love, FILM AND VIDEO EDITOR.DEFLECTOR OPERATOR [address] [place] [address] Referral ID Status Reason Start Date Expiration Date Visits Requested Visits Authorized [id number] Authorized PCP Requested Referral 09/08/2023 09/07/2024 1 1 Specialty Diagnoses / Procedures Referred By Contac t Referred To Contact [facility] Diagnoses Gait difficulty Complaints of leg weakness Procedures PT REHAB FOLLOW UP ORDER THERAPEUTIC EXERCISES RE, EA 15 MIN. Charleen Rocha, PT [facility] [address] [place] [address] Referral ID Status Reason Start Date Expiration Date Visits Requested Visits Authorized [id number] Pending Review PCP Requested Referral Auto-Generate d Referral 09/29/2023 12/28/2023 1 1 Specialty Diagnoses / Procedures Referred By Contac t Referred To Contact Podiatry Diagnoses Acute left ankle pain Foot pain, left Procedures CONSULT TO PODIATRY OFFICE/OUTPATIENT [facility] 60 MINUTES Ruiz Serrato, FILM AND VIDEO EDITOR.MANUAL LATHE OPERATOR [address] [place] [address] Referral ID Status Reason Start Date Expiration Date Visits Requested Visits Authorized [id number] Authorized PCP Requested Referral 10/14/2023 10/13/2024 1 1 Specialty Diagnoses / Procedures Referred By Contac t Referred To Contact XR IMAGING Diagnoses Acute left ankle pain Foot pain, left Procedures XR FOOT GENERAL 3V AP/LAT/OBL LEFT RADEX FOOT COMPLETE MINIMUM 3 VIEWS Ruiz Serrato, FILM AND VIDEO EDITOR.MANUAL LATHE OPERATOR [address] [place] [address] [place] [address] Referral ID Status Reason Start Date Expiration Date V isits Requested Visits Authorized [id number] Closed Auto-Generate d Referral 10/14/2023 11/12/2024 1 1 Specialty Diagnoses / Procedures Referred By Contac t Referred To Contact XR IMAGING Diagnoses Acute left ankle pain Foot pain, left Procedures XR ANKLE GENERAL 3V AP/LAT/OBL LEFT RADEX ANKLE COMPLETE MINIMUM 3 VIEWS Ruiz Serrato, SHAHID.MANUAL LATHE OPERATOR [address] [place] [address] [place] [address] Referral ID Status Reason Start Date Expiration Date V isits Requested Visits Authorized [id number] Closed Auto-Generate d Referral 10/14/2023 11/12/2024 1 1 Specialty Diagnoses / Procedures Referred By Contac t Referred To Contact [facility] Diagnoses Generalized abdominal pain History of abdominal surgery Procedures CONSULT TO PHYSICAL THERAPY PHYSICAL THERAPY EVALUATION HIGH COMPLEX 45 MINS Ruddy Cooper MD [address] [place] [address] [facility] [place] [address] [place], [place] [id number] Referral ID Status Reason Start Date Expiration Date Visits Requested Visits Authorized [id number] Pending Review Auto-Generat ed Referral 10/13/2023 10/12/2024 1 1 Specialty Diagnoses / Procedures Referred By Contac t Referred To Contact [facility] Diagnoses Complaints of leg weakness Gait difficulty Procedures PT REHAB FOLLOW UP ORDER THERAPEUTIC EXERCISES RE, EA 15 MIN. Charleen Rocha, PT [facility] [place] [address] [place], [place] [address] Referral ID Status Reason Start Date Expiration Date Visits Requested Visits Authorized [id number] New Request PCP Requested Referral Auto-Generate d Referral 11/26/2023 02/24/2024 1 1 Referral ID Status Reason Start Date Expiration Date Visits Requested Visits Authorized [id number] New Request PCP Requested Referral Auto-Generate d Referral 12/16/2023 03/15/2024 1 1 Specialty Diagnoses / Procedures Referred By Contac t Referred To Contact Ent - Otolaryngology Diagnoses Tinnitus of both ears Procedures CONSULT TO ENT OFFICE/OUTPATIENT [facility] 60 MINUTES Bradford Love, FILM AND VIDEO EDITOR.DEFLECTOR OPERATOR [address] [place] [address] Referral ID Status Reason Start Date Expiration Date Visits Requested Visits Authorized [id number] Authorized PCP Requested Referral 12/19/2023 12/18/2024 1 1 Specialty Diagnoses / Procedures Referred By Cont[facility] t Referred To Contact [facility] Diagnoses Hypertension Syncope, unspecified syncope type Procedures ECHO ECHO TTHRC R-T 2D W/WOM-MODE COMPL SPEC&COLR D Bradford Love, FILM AND VIDEO EDITOR.DEFLECTOR OPERATOR [address] [place] [address] [facility] [address] [place] [address] Referral ID Status Reason Start Date Expiration Date Visits Requested Visits Authorized [id number] Pending Review Auto-Generat ed Referral 12/19/2023 12/18/2024 1 1 Additional Source Comments INFORMATION SOURCE (unrecogn ized section and content) DATE CREATED AUTHOR 12/16/2020 [facility] DATE CREATED AUTHOR AUTHOR'S ORGANIZ ATION 08/08/2021 [facility] DATE CREATED AUTHOR AUTHOR'S ORGANIZ ATION 09/16/2024 [facility] DATE CREATED AUTHOR AUTHOR'S ORGANIZ ATION 09/25/2024 [facility] Source Comments (unrecognize d section and content) In the event this informatio n is protected by the Federal Confidentiality of Alcohol and Drug Abuse Patient Records regulations: The Federal rules restrict any use of the information to criminally investigate or prosecute any alcohol or drug abuse patient.[facility] the event this information is protected by the Federal Confidentiality of Alcohol and Drug Abuse Patient Records regulations: The Federal rules restrict any use of the information to criminally investigate or prosecute any alcohol or drug abuse patient.[facility] HospitalIn the event this information is protected by the Federal Confidentiality of Alcohol and Drug Abuse Patient Records regulations: The Federal rules restrict any use of the information to criminally investigate or prosecute any alcohol or drug abuse patient.[facility] the event this information is protected by the Federal Confidentiality of Alcohol and Drug Abuse Patient Records regulations: The Federal rules restrict any use of the information to criminally investigate or prosecute any alcohol or drug abuse patient.[facility] HospitalIn the event this information is protected by the Federal Confidentiality of Alcohol and Drug Abuse Patient Records regulations: The Federal rules restrict any use of the information to criminally investigate or prosecute any alcohol or drug abuse patient.[facility] HospitalIn the event this information is protected by the Federal Confidentiality of Alcohol and Drug Abuse Patient Records regulations: The Federal rules restrict any use of the information to criminally investigate or prosecute any alcohol or drug abuse patient.[facility] HospitalIn the event this information is protected by the Federal Confidentiality of Alcohol and Drug Abuse Patient Records regulations: The Federal rules restrict any use of the information to criminally investigate or prosecute any alcohol or drug abuse patient.[facility] HospitalIn the event this information is protected by the Federal Confidentiality of Alcohol and Drug Abuse Patient Records regulations: The Federal rules restrict any use of the information to criminally investigate or prosecute any alcohol or drug abuse patient.[facility] HospitalIn the event this information is protected by the Federal Confidentiality of Alcohol and Drug Abuse Patient Records regulations: The Federal rules restrict any use of the information to criminally investigate or prosecute any alcohol or drug abuse patient.[facility] HospitalIn the event this information is protected by the Federal Confidentiality of Alcohol and Drug Abuse Patient Records regulations: The Federal rules restrict any use of the information to criminally investigate or prosecute any alcohol or drug abuse patient.[facility] HospitalIn the event this information is protected by the Federal Confidentiality of Alcohol and Drug Abuse Patient Records regulations: The Federal rules restrict any use of the information to criminally investigate or prosecute any alcohol or drug abuse patient.[facility] HospitalIn the event this information is protected by the Federal Confidentiality of Alcohol and Drug Abuse Patient Records regulations: The Federal rules restrict any use of the information to criminally investigate or prosecute any alcohol or drug abuse patient.[facility] HospitalIn the event this information is protected by the Federal Confidentiality of Alcohol and Drug Abuse Patient Records regulations: The Federal rules restrict any use of the information to criminally investigate or prosecute any alcohol or drug abuse patient.[facility] HospitalIn the event this information is protected by the Federal Confidentiality of Alcohol and Drug Abuse Patient Records regulations: The Federal rules restrict any use of the information to criminally investigate or prosecute any alcohol or drug abuse patient.[facility] HospitalIn the event this information is protected by the Federal Confidentiality of Alcohol and Drug Abuse Patient Records regulations: The Federal rules restrict any use of the information to criminally investigate or prosecute any alcohol or drug abuse patient.[facility] HospitalIn the event this information is protected by the Federal Confidentiality of Alcohol and Drug Abuse Patient Records regulations: The Federal rules restrict any use of the information to criminally investigate or prosecute any alcohol or drug abuse patient.[facility] HospitalIn the event this information is protected by the Federal Confidentiality of Alcohol and Drug Abuse Patient Records regulations: The Federal rules restrict any use of the information to criminally investigate or prosecute any alcohol or drug abuse patient.[facility] HospitalIn the event this information is protected by the Federal Confidentiality of Alcohol and Drug Abuse Patient Records regulations: The Federal rules restrict any use of the information to criminally investigate or prosecute any alcohol or drug abuse patient.[facility] HospitalIn the event this information is protected by the Federal Confidentiality of Alcohol and Drug Abuse Patient Records regulations: The Federal rules restrict any use of the information to criminally investigate or prosecute any alcohol or drug abuse patient.[facility] HospitalIn the event this information is protected by the Federal Confidentiality of Alcohol and Drug Abuse Patient Records regulations: The Federal rules restrict any use of the information to criminally investigate or prosecute any alcohol or drug abuse patient.[facility] HospitalIn the event this information is protected by the Federal Confidentiality of Alcohol and Drug Abuse Patient Records regulations: The Federal rules restrict any use of the information to criminally investigate or prosecute any alcohol or drug abuse patient.[facility] HospitalIn the event this information is protected by the Federal Confidentiality of Alcohol and Drug Abuse Patient Records regulations: The Federal rules restrict any use of the information to criminally investigate or prosecute any alcohol or drug abuse patient.[facility] HospitalIn the event this information is protected by the Federal Confidentiality of Alcohol and Drug Abuse Patient Records regulations: The Federal rules restrict any use of the information to criminally investigate or prosecute any alcohol or drug abuse patient.[facility] HospitalIn the event this information is protected by the Federal Confidentiality of Alcohol and Drug Abuse Patient Records regulations: The Federal rules restrict any use of the information to criminally investigate or prosecute any alcohol or drug abuse patient.[facility] HospitalIn the event this information is protected by the Federal Confidentiality of Alcohol and Drug Abuse Patient Records regulations: The Federal rules restrict any use of the information to criminally investigate or prosecute any alcohol or drug abuse patient.[facility] HospitalIn the event this information is protected by the Federal Confidentiality of Alcohol and Drug Abuse Patient Records regulations: The Federal rules restrict any use of the information to criminally investigate or prosecute any alcohol or drug abuse patient.[facility] HospitalIn the event this information is protected by the Federal Confidentiality of Alcohol and Drug Abuse Patient Records regulations: The Federal rules restrict any use of the information to criminally investigate or prosecute any alcohol or drug abuse patient.[facility] HospitalIn the event this information is protected by the Federal Confidentiality of Alcohol and Drug Abuse Patient Records regulations: The Federal rules restrict any use of the information to criminally investigate or prosecute any alcohol or drug abuse patient.[facility] HospitalIn the event this information is protected by the Federal Confidentiality of Alcohol and Drug Abuse Patient Records regulations: The Federal rules restrict any use of the information to criminally investigate or prosecute any alcohol or drug abuse patient.[facility] [facility]In the event this information is protected by the Federal Confidentiality of Alcohol and Drug Abuse Patient Records regulations: The Federal rules restrict any use of the information to criminally investigate or prosecute any alcohol or drug abuse patient.[facility]In the event this information is protected by the Federal Confidentiality of Alcohol and Drug Abuse Patient Records regulations: The Federal rules restrict any use of the information to criminally investigate or prosecute any alcohol or drug abuse patient.[facility] HospitalIn the event this information is protected by the Federal Confidentiality of Alcohol and Drug Abuse Patient Records regulations: The Federal rules restrict any use of the information to criminally investigate or prosecute any alcohol or drug abuse patient.[facility] HospitalIn the event this information is protected by the Federal Confidentiality of Alcohol and Drug Abuse Patient Records regulations: The Federal rules restrict any use of the information to criminally investigate or prosecute any alcohol or drug abuse patient.[facility] HospitalIn the event this information is protected by the Federal Confidentiality of Alcohol and Drug Abuse Patient Records regulations: The Federal rules restrict any use of the information to criminally investigate or prosecute any alcohol or drug abuse patient.[facility] HospitalIn the event this information is protected by the Federal Confidentiality of Alcohol and Drug Abuse Patient Records regulations: The Federal rules restrict any use of the information to criminally investigate or prosecute any alcohol or drug abuse patient.[facility] HospitalIn the event this information is protected by the Federal Confidentiality of Alcohol and Drug Abuse Patient Records regulations: The Federal rules restrict any use of the information to criminally investigate or prosecute any alcohol or drug abuse patient.[facility] HospitalIn the event this information is protected by the Federal Confidentiality of Alcohol and Drug Abuse Patient Records regulations: The Federal rules restrict any use of the information to criminally investigate or prosecute any alcohol or drug abuse patient.[facility] HospitalIn the event this information is protected by the Federal Confidentiality of Alcohol and Drug Abuse Patient Records regulations: The Federal rules restrict any use of the information to criminally investigate or prosecute any alcohol or drug abuse patient.[facility] HospitalIn the event this information is protected by the Federal Confidentiality of Alcohol and Drug Abuse Patient Records regulations: The Federal rules restrict any use of the information to criminally investigate or prosecute any alcohol or drug abuse patient.[facility] HospitalIn the event this information is protected by the Federal Confidentiality of Alcohol and Drug Abuse Patient Records regulations: The Federal rules restrict any use of the information to criminally investigate or prosecute any alcohol or drug abuse patient.[facility] HospitalIn the event this information is protected by the Federal Confidentiality of Alcohol and Drug Abuse Patient Records regulations: The Federal rules restrict any use of the information to criminally investigate or prosecute any alcohol or drug abuse patient.[facility] HospitalIn the event this information is protected by the Federal Confidentiality of Alcohol and Drug Abuse Patient Records regulations: The Federal rules restrict any use of the information to criminally investigate or prosecute any alcohol or drug abuse patient.[facility] HospitalIn the event this information is protected by the Federal Confidentiality of Alcohol and Drug Abuse Patient Records regulations: The Federal rules restrict any use of the information to criminally investigate or prosecute any alcohol or drug abuse patient.[facility] HospitalIn the event this information is protected by the Federal Confidentiality of Alcohol and Drug Abuse Patient Records regulations: The Federal rules restrict any use of the information to criminally investigate or prosecute any alcohol or drug abuse patient.[facility] HospitalIn the event this information is protected by the Federal Confidentiality of Alcohol and Drug Abuse Patient Records regulations: The Federal rules restrict any use of the information to criminally investigate or prosecute any alcohol or drug abuse patient.[facility] HospitalIn the event this information is protected by the Federal Confidentiality of Alcohol and Drug Abuse Patient Records regulations: The Federal rules restrict any use of the information to criminally investigate or prosecute any alcohol or drug abuse patient.[facility] HospitalIn the event this information is protected by the Federal Confidentiality of Alcohol and Drug Abuse Patient Records regulations: The Federal rules restrict any use of the information to criminally investigate or prosecute any alcohol or drug abuse patient.[facility] HospitalIn the event this information is protected by the Federal Confidentiality of Alcohol and Drug Abuse Patient Records regulations: The Federal rules restrict any use of the information to criminally investigate or prosecute any alcohol or drug abuse patient.[facility] HospitalIn the event this information is protected by the Federal Confidentiality of Alcohol and Drug Abuse Patient Records regulations: The Federal rules restrict any use of the information to criminally investigate or prosecute any alcohol or drug abuse patient.[facility] HospitalIn the event this information is protected by the Federal Confidentiality of Alcohol and Drug Abuse Patient Records regulations: The Federal rules restrict any use of the information to criminally investigate or prosecute any alcohol or drug abuse patient.[facility] HospitalIn the event this information is protected by the Federal Confidentiality of Alcohol and Drug Abuse Patient Records regulations: The Federal rules restrict any use of the information to criminally investigate or prosecute any alcohol or drug abuse patient.[facility] HospitalIn the event this information is protected by the Federal Confidentiality of Alcohol and Drug Abuse Patient Records regulations: The Federal rules restrict any use of the information to criminally investigate or prosecute any alcohol or drug abuse patient.[facility] HospitalIn the event this information is protected by the Federal Confidentiality of Alcohol and Drug Abuse Patient Records regulations: The Federal rules restrict any use of the information to criminally investigate or prosecute any alcohol or drug abuse patient.[facility] HospitalIn the event this information is protected by the Federal Confidentiality of Alcohol and Drug Abuse Patient Records regulations: The Federal rules restrict any use of the information to criminally investigate or prosecute any alcohol or drug abuse patient.[facility] HospitalIn the event this information is protected by the Federal Confidentiality of Alcohol and Drug Abuse Patient Records regulations: The Federal rules restrict any use of the information to criminally investigate or prosecute any alcohol or drug abuse patient.[facility] HospitalIn the event this information is protected by the Federal Confidentiality of Alcohol and Drug Abuse Patient Records regulations: The Federal rules restrict any use of the information to criminally investigate or prosecute any alcohol or drug abuse patient.[facility] HospitalIn the event this information is protected by the Federal Confidentiality of Alcohol and Drug Abuse Patient Records regulations: The Federal rules restrict any use of the information to criminally investigate or prosecute any alcohol or drug abuse patient.[facility] HospitalIn the event this information is protected by the Federal Confidentiality of Alcohol and Drug Abuse Patient Records regulations: The Federal rules restrict any use of the information to criminally investigate or prosecute any alcohol or drug abuse patient.[facility] HospitalIn the event this information is protected by the Federal Confidentiality of Alcohol and Drug Abuse Patient Records regulations: The Federal rules restrict any use of the information to criminally investigate or prosecute any alcohol or drug abuse patient.[facility] HospitalIn the event this information is protected by the Federal Confidentiality of Alcohol and Drug Abuse Patient Records regulations: The Federal rules restrict any use of the information to criminally investigate or prosecute any alcohol or drug abuse patient.[facility] HospitalIn the event this information is protected by the Federal Confidentiality of Alcohol and Drug Abuse Patient Records regulations: The Federal rules restrict any use of the information to criminally investigate or prosecute any alcohol or drug abuse patient.[facility] HospitalIn the event this information is protected by the Federal Confidentiality of Alcohol and Drug Abuse Patient Records regulations: The Federal rules restrict any use of the information to criminally investigate or prosecute any alcohol or drug abuse patient.[facility] HospitalIn the event this information is protected by the Federal Confidentiality of Alcohol and Drug Abuse Patient Records regulations: The Federal rules restrict any use of the information to criminally investigate or prosecute any alcohol or drug abuse patient.[facility] HospitalIn the event this information is protected by the Federal Confidentiality of Alcohol and Drug Abuse Patient Records regulations: The Federal rules restrict any use of the information to criminally investigate or prosecute any alcohol or drug abuse patient.[facility] HospitalIn the event this information is protected by the Federal Confidentiality of Alcohol and Drug Abuse Patient Records regulations: The Federal rules restrict any use of the information to criminally investigate or prosecute any alcohol or drug abuse patient.[facility] HospitalIn the event this information is protected by the Federal Confidentiality of Alcohol and Drug Abuse Patient Records regulations: The Federal rules restrict any use of the information to criminally investigate or prosecute any alcohol or drug abuse patient.[facility] HospitalIn the event this information is protected by the Federal Confidentiality of Alcohol and Drug Abuse Patient Records regulations: The Federal rules restrict any use of the information to criminally investigate or prosecute any alcohol or drug abuse patient.[facility] HospitalIn the event this information is protected by the Federal Confidentiality of Alcohol and Drug Abuse Patient Records regulations: The Federal rules restrict any use of the information to criminally investigate or prosecute any alcohol or drug abuse patient.[facility] HospitalIn the event this information is protected by the Federal Confidentiality of Alcohol and Drug Abuse Patient Records regulations: The Federal rules restrict any use of the information to criminally investigate or prosecute any alcohol or drug abuse patient.[facility] HospitalIn the event this information is protected by the Federal Confidentiality of Alcohol and Drug Abuse Patient Records regulations: The Federal rules restrict any use of the information to criminally investigate or prosecute any alcohol or drug abuse patient.[facility] HospitalIn the event this information is protected by the Federal Confidentiality of Alcohol and Drug Abuse Patient Records regulations: The Federal rules restrict any use of the information to criminally investigate or prosecute any alcohol or drug abuse patient.[facility] HospitalIn the event this information is protected by the Federal Confidentiality of Alcohol and Drug Abuse Patient Records regulations: The Federal rules restrict any use of the information to criminally investigate or prosecute any alcohol or drug abuse patient.[facility] HospitalIn the event this information is protected by the Federal Confidentiality of Alcohol and Drug Abuse Patient Records regulations: The Federal rules restrict any use of the information to criminally investigate or prosecute any alcohol or drug abuse patient.[facility] HospitalIn the event this information is protected by the Federal Confidentiality of Alcohol and Drug Abuse Patient Records regulations: The Federal rules restrict any use of the information to criminally investigate or prosecute any alcohol or drug abuse patient.[facility] HospitalIn the event this information is protected by the Federal Confidentiality of Alcohol and Drug Abuse Patient Records regulations: The Federal rules restrict any use of the information to criminally investigate or prosecute any alcohol or drug abuse patient.[facility] HospitalIn the event this information is protected by the Federal Confidentiality of Alcohol and Drug Abuse Patient Records regulations: The Federal rules restrict any use of the information to criminally investigate or prosecute any alcohol or drug abuse patient.[facility] HospitalIn the event this information is protected by the Federal Confidentiality of Alcohol and Drug Abuse Patient Records regulations: The Federal rules restrict any use of the information to criminally investigate or prosecute any alcohol or drug abuse patient.[facility] HospitalIn the event this information is protected by the Federal Confidentiality of Alcohol and Drug Abuse Patient Records regulations: The Federal rules restrict any use of the information to criminally investigate or prosecute any alcohol or drug abuse patient.[facility] HospitalIn the event this information is protected by the Federal Confidentiality of Alcohol and Drug Abuse Patient Records regulations: The Federal rules restrict any use of the information to criminally investigate or prosecute any alcohol or drug abuse patient.[facility] HospitalIn the event this information is protected by the Federal Confidentiality of Alcohol and Drug Abuse Patient Records regulations: The Federal rules restrict any use of the information to criminally investigate or prosecute any alcohol or drug abuse patient.[facility] HospitalIn the event this information is protected by the Federal Confidentiality of Alcohol and Drug Abuse Patient Records regulations: The Federal rules restrict any use of the information to criminally investigate or prosecute any alcohol or drug abuse patient.[facility] HospitalIn the event this information is protected by the Federal Confidentiality of Alcohol and Drug Abuse Patient Records regulations: The Federal rules restrict any use of the information to criminally investigate or prosecute any alcohol or drug abuse patient.[facility] HospitalIn the event this information is protected by the Federal Confidentiality of Alcohol and Drug Abuse Patient Records regulations: The Federal rules restrict any use of the information to criminally investigate or prosecute any alcohol or drug abuse patient.[facility] HospitalIn the event this information is protected by the Federal Confidentiality of Alcohol and Drug Abuse Patient Records regulations: The Federal rules restrict any use of the information to criminally investigate or prosecute any alcohol or drug abuse patient.[facility] HospitalIn the event this information is protected by the Federal Confidentiality of Alcohol and Drug Abuse Patient Records regulations: The Federal rules restrict any use of the information to criminally investigate or prosecute any alcohol or drug abuse patient.[facility] HospitalIn the event this information is protected by the Federal Confidentiality of Alcohol and Drug Abuse Patient Records regulations: The Federal rules restrict any use of the information to criminally investigate or prosecute any alcohol or drug abuse patient.[facility] HospitalIn the event this information is protected by the Federal Confidentiality of Alcohol and Drug Abuse Patient Records regulations: The Federal rules restrict any use of the information to criminally investigate or prosecute any alcohol or drug abuse patient.[facility] HospitalIn the event this information is protected by the Federal Confidentiality of Alcohol and Drug Abuse Patient Records regulations: The Federal rules restrict any use of the information to criminally investigate or prosecute any alcohol or drug abuse patient.[facility] HospitalIn the event this information is protected by the Federal Confidentiality of Alcohol and Drug Abuse Patient Records regulations: The Federal rules restrict any use of the information to criminally investigate or prosecute any alcohol or drug abuse patient.[facility]In the event this information is protected by the Federal Confidentiality of Alcohol and Drug Abuse Patient Records regulations: The Federal rules restrict any use of the information to criminally investigate or prosecute any alcohol or drug abuse patient.[facility] HospitalIn the event this information is protected by the Federal Confidentiality of Alcohol and Drug Abuse Patient Records regulations: The Federal rules restrict any use of the information to criminally investigate or prosecute any alcohol or drug abuse patient.[facility] HospitalIn the event this information is protected by the Federal Confidentiality of Alcohol and Drug Abuse Patient Records regulations: The Federal rules restrict any use of the information to criminally investigate or prosecute any alcohol or drug abuse patient.[facility] HospitalIn the event this information is protected by the Federal Confidentiality of Alcohol and Drug Abuse Patient Records regulations: The Federal rules restrict any use of the information to criminally investigate or prosecute any alcohol or drug abuse patient.[facility] HospitalIn the event this information is protected by the Federal Confidentiality of Alcohol and Drug Abuse Patient Records regulations: The Federal rules restrict any use of the information to criminally investigate or prosecute any alcohol or drug abuse patient.[facility] HospitalIn the event this information is protected by the Federal Confidentiality of Alcohol and Drug Abuse Patient Records regulations: The Federal rules restrict any use of the information to criminally investigate or prosecute any alcohol or drug abuse patient.[facility]In the event this information is protected by the Federal Confidentiality of Alcohol and Drug Abuse Patient Records regulations: The Federal rules restrict any use of the information to criminally investigate or prosecute any alcohol or drug abuse patient.[facility] HospitalIn the event this information is protected by the Federal Confidentiality of Alcohol and Drug Abuse Patient Records regulations: The Federal rules restrict any use of the information to criminally investigate or prosecute any alcohol or drug abuse patient.[facility]In the event this information is protected by the Federal Confidentiality of Alcohol and Drug Abuse Patient Records regulations: The Federal rules restrict any use of the information to criminally investigate or prosecute any alcohol or drug abuse patient.[facility] HospitalIn the event this information is protected by the Federal Confidentiality of Alcohol and Drug Abuse Patient Records regulations: The Federal rules restrict any use of the information to criminally investigate or prosecute any alcohol or drug abuse patient.[facility] HospitalIn the event this information is protected by the Federal Confidentiality of Alcohol and Drug Abuse Patient Records regulations: The Federal rules restrict any use of the information to criminally investigate or prosecute any alcohol or drug abuse patient.[facility]In the event this information is protected by the Federal Confidentiality of Alcohol and Drug Abuse Patient Records regulations: The Federal rules restrict any use of the information to criminally investigate or prosecute any alcohol or drug abuse patient.[facility] HospitalIn the event this information is protected by the Federal Confidentiality of Alcohol and Drug Abuse Patient Records regulations: The Federal rules restrict any use of the information to criminally investigate or prosecute any alcohol or drug abuse patient.[facility]In the event this information is protected by the Federal Confidentiality of Alcohol and Drug Abuse Patient Records regulations: The Federal rules restrict any use of the information to criminally investigate or prosecute any alcohol or drug abuse patient.[facility]In the event this information is protected by the Federal Confidentiality of Alcohol and Drug Abuse Patient Records regulations: The Federal rules restrict any use of the information to criminally investigate or prosecute any alcohol or drug abuse patient.[facility]In the event this information is protected by the Federal Confidentiality of Alcohol and Drug Abuse Patient Records regulations: The Federal rules restrict any use of the information to criminally investigate or prosecute any alcohol or drug abuse patient.[facility]In the event this information is protected by the Federal Confidentiality of Alcohol and Drug Abuse Patient Records regulations: The Federal rules restrict any use of the information to criminally investigate or prosecute any alcohol or drug abuse patient.[facility]In the event this information is protected by the Federal Confidentiality of Alcohol and Drug Abuse Patient Records regulations: The Federal rules restrict any use of the information to criminally investigate or prosecute any alcohol or drug abuse patient.[facility]In the event this information is protected by the Federal Confidentiality of Alcohol and Drug Abuse Patient Records regulations: The Federal rules restrict any use of the information to criminally investigate or prosecute any alcohol or drug abuse patient.[facility]In the event this information is protected by the Federal Confidentiality of Alcohol and Drug Abuse Patient Records regulations: The Federal rules restrict any use of the information to criminally investigate or prosecute any alcohol or drug abuse patient.[facility]In the event this information is protected by the Federal Confidentiality of Alcohol and Drug Abuse Patient Records regulations: The Federal rules restrict any use of the information to criminally investigate or prosecute any alcohol or drug abuse patient.[facility]In the event this information is protected by the Federal Confidentiality of Alcohol and Drug Abuse Patient Records regulations: The Federal rules restrict any use of the information to criminally investigate or prosecute any alcohol or drug abuse patient.[facility]In the event this information is protected by the Federal Confidentiality of Alcohol and Drug Abuse Patient Records regulations: The Federal rules restrict any use of the information to criminally investigate or prosecute any alcohol or drug abuse patient.[facility]In the event this information is protected by the Federal Confidentiality of Alcohol and Drug Abuse Patient Records regulations: The Federal rules restrict any use of the information to criminally investigate or prosecute any alcohol or drug abuse patient.[facility]In the event this information is protected by the Federal Confidentiality of Alcohol and Drug Abuse Patient Records regulations: The Federal rules restrict any use of the information to criminally investigate or prosecute any alcohol or drug abuse patient.[facility] HospitalIn the event this information is protected by the Federal Confidentiality of Alcohol and Drug Abuse Patient Records regulations: The Federal rules restrict any use of the information to criminally investigate or prosecute any alcohol or drug abuse patient.[facility] HospitalIn the event this information is protected by the Federal Confidentiality of Alcohol and Drug Abuse Patient Records regulations: The Federal rules restrict any use of the information to criminally investigate or prosecute any alcohol or drug abuse patient.[facility] HospitalIn the event this information is protected by the Federal Confidentiality of Alcohol and Drug Abuse Patient Records regulations: The Federal rules restrict any use of the information to criminally investigate or prosecute any alcohol or drug abuse patient.[facility] HospitalIn the event this information is protected by the Federal Confidentiality of Alcohol and Drug Abuse Patient Records regulations: The Federal rules restrict any use of the information to criminally investigate or prosecute any alcohol or drug abuse patient.[facility] HospitalIn the event this information is protected by the Federal Confidentiality of Alcohol and Drug Abuse Patient Records regulations: The Federal rules restrict any use of the information to criminally investigate or prosecute any alcohol or drug abuse patient.[facility] HospitalIn the event this information is protected by the Federal Confidentiality of Alcohol and Drug Abuse Patient Records regulations: The Federal rules restrict any use of the information to criminally investigate or prosecute any alcohol or drug abuse patient.[facility] HospitalIn the event this information is protected by the Federal Confidentiality of Alcohol and Drug Abuse Patient Records regulations: The Federal rules restrict any use of the information to criminally investigate or prosecute any alcohol or drug abuse patient.[facility] HospitalIn the event this information is protected by the Federal Confidentiality of Alcohol and Drug Abuse Patient Records regulations: The Federal rules restrict any use of the information to criminally investigate or prosecute any alcohol or drug abuse patient.[facility] HospitalIn the event this information is protected by the Federal Confidentiality of Alcohol and Drug Abuse Patient Records regulations: The Federal rules restrict any use of the information to criminally investigate or prosecute any alcohol or drug abuse patient.[facility] HospitalIn the event this information is protected by the Federal Confidentiality of Alcohol and Drug Abuse Patient Records regulations: The Federal rules restrict any use of the information to criminally investigate or prosecute any alcohol or drug abuse patient.[facility] HospitalIn the event this information is protected by the Federal Confidentiality of Alcohol and Drug Abuse Patient Records regulations: The Federal rules restrict any use of the information to criminally investigate or prosecute any alcohol or drug abuse patient.[facility] HospitalIn the event this information is protected by the Federal Confidentiality of Alcohol and Drug Abuse Patient Records regulations: The Federal rules restrict any use of the information to criminally investigate or prosecute any alcohol or drug abuse patient.[facility] HospitalIn the event this information is protected by the Federal Confidentiality of Alcohol and Drug Abuse Patient Records regulations: The Federal rules restrict any use of the information to criminally investigate or prosecute any alcohol or drug abuse patient.[facility] HospitalIn the event this information is protected by the Federal Confidentiality of Alcohol and Drug Abuse Patient Records regulations: The Federal rules restrict any use of the information to criminally investigate or prosecute any alcohol or drug abuse patient.[facility] HospitalIn the event this information is protected by the Federal Confidentiality of Alcohol and Drug Abuse Patient Records regulations: The Federal rules restrict any use of the information to criminally investigate or prosecute any alcohol or drug abuse patient.[facility] HospitalIn the event this information is protected by the Federal Confidentiality of Alcohol and Drug Abuse Patient Records regulations: The Federal rules restrict any use of the information to criminally investigate or prosecute any alcohol or drug abuse patient.[facility] HospitalIn the event this information is protected by the Federal Confidentiality of Alcohol and Drug Abuse Patient Records regulations: The Federal rules restrict any use of the information to criminally investigate or prosecute any alcohol or drug abuse patient.[facility] HospitalIn the event this information is protected by the Federal Confidentiality of Alcohol and Drug Abuse Patient Records regulations: The Federal rules restrict any use of the information to criminally investigate or prosecute any alcohol or drug abuse patient.[facility] HospitalIn the event this information is protected by the Federal Confidentiality of Alcohol and Drug Abuse Patient Records regulations: The Federal rules restrict any use of the information to criminally investigate or prosecute any alcohol or drug abuse patient.[facility] HospitalIn the event this information is protected by the Federal Confidentiality of Alcohol and Drug Abuse Patient Records regulations: The Federal rules restrict any use of the information to criminally investigate or prosecute any alcohol or drug abuse patient.[facility] HospitalIn the event this information is protected by the Federal Confidentiality of Alcohol and Drug Abuse Patient Records regulations: The Federal rules restrict any use of the information to criminally investigate or prosecute any alcohol or drug abuse patient.[facility] HospitalIn the event this information is protected by the Federal Confidentiality of Alcohol and Drug Abuse Patient Records regulations: The Federal rules restrict any use of the information to criminally investigate or prosecute any alcohol or drug abuse patient.[facility] Reason for Visit (unrecogniz ed section and content) Reason Comments Physical Therapy Specialty Diagnoses / Procedures Referred By Contac t Referred To Contact [facility] Diagnoses Gait difficulty Complaints of leg weakness Procedures PT REHAB FOLLOW UP ORDER THERAPEUTIC EXERCISES RE, EA 15 MIN. Bradford Love, FILM AND VIDEO EDITOR.DEFLECTOR OPERATOR [address] [place] [address] [facility] [address] [place] [address] Referral ID Status Reason Start Date Expiration Date Visits Requested Visits Authorized [id number] Authorized PCP Requested Referral Auto-Generate d Referral 10/01/2023 01/26/2024 8 8 Reason Comments PT Progress Note Reason Comments Patient Left Without Being Seen Reason Comments PT Discharge Specialty Diagnoses / Procedures Referred By Contac t Referred To Contact [facility] Diagnoses Insufficiency of right posterior tibial tendon Procedures PT REHAB FOLLOW UP ORDER THERAPEUTIC EXERCISES RE, EA 15 MIN. 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 Reason Comments Right Knee Pain Knee Replacement Specialty Diagnoses / Procedures Referred By Contac t Referred To Contact XR IMAGING Diagnoses Right knee pain, unspecified chronicity Procedures XR KNEE POST OP 3V AP/LAT/MERCHANT RIGHT RADIOLOGIC EXAMINATION KNEE 3 VIEWS Rigoberto Chase, FILM AND VIDEO EDITOR.MANUAL LATHE OPERATOR [address] [facility], [address] [place] [address] Xr Imaging Referral ID Status Reason Start Date Expiration Date V isits Requested Visits Authorized [id number] Closed Auto-Generate d Referral 07/18/2021 08/16/2022 1 1 Reason Onset Date Comments Refill Request 09/05/2021 Reason Comments Ankle Injury previous ankle injur y, worried about hardware in R ankle x1.5 weeks Reason Comments Non-Chemotherapy Treatment Specialty Diagnoses / Procedures Referred By Contac t Referred To Contact Diagnoses Osteoporosis, unspecified Malignant neoplasm of unspecified site of left female breast Procedures INJECTION, ZOLEDRONIC ACID, 1 MG Raphael Perdomo, FILM AND VIDEO EDITOR.MANUAL LATHE OPERATOR [address] [place] [address] [facility] [address] [place] [address] Referral ID Status Reason Start Date Expiration Date V isits Requested Visits Authorized [id number] Authorized 11/17/2020 05/17/2022 3 3 Reason Comments PT Eval Patient Education Specialty Diagnoses / Procedures Referred By George t Referred To Contact Physical Therapy / PHYSICAL THERAPY Diagnoses Posterior tibial tendinitis, right leg INSUFFICIENCY OF RIGHT POSTERIOR TIBIAL TENDON (m76.821) Procedures PHYSICAL THERAPY EVALUATION HIGH COMPLEX 45 MINS NEW RS PT ORTH Salome Guerrier MD [address] [place] [address] Julianne Saab, PT [address] [place] [address] Referral ID Status Reason Start Date Expiration Date Visits Re quested Visits Authorized [id number] Closed 10/22/2021 04/27/2022 1 1 Specialty Diagnoses / Procedures Referred By George t Referred To Contact Physical Therapy / PHYSICAL THERAPY Diagnoses Posterior tibial tendinitis, right leg INSUFFICIENCY OF RIGHT POSTERIOR TIBIAL TENDON (m76.821) Procedures PHYSICAL THERAPY EVALUATION HIGH COMPLEX 45 MINS NEW RS PT ORTH Salome Guerrier MD [address] [place] [address] Julianne Saab, PT [address] [place] [address] Reason Comments Established Patient Reason Comments Yearly Exam With Mammogram Reason Comments Radiology Mammogram Specialty Diagnoses / Procedures Referred By George mckeon Referred To Contact BR IMAGING Diagnoses Bilateral fibrocystic breast changes Personal history of breast cancer S/P bilateral breast lumpectomy Encounter for screening mammogram for malignant neoplasm of breast Procedures WILLIE SCREENING SCREENING MAMMOGRAPHY BI 2-VIEW BREAST INC Sheela Tejada PA-C [address] [place] [address] [facility] [address] [place] [address] Referral ID Status Reason Start Date Expiration Date V isits Requested Visits Authorized [id number] Closed Auto-Generate d Referral 11/29/2021 12/29/2022 1 1 Reason Comments Medical Clearance Received fax request for surgical clearance from [facility] - scanned into [facility] Reason Comments Patient Question Reason Comments F/U 6 months Reason Comments Patient Question Patient called and h ad question about inplants after radiation. Reason Comments Candle Wicker - Other Sending records to [facility] Reason Onset Date Comments Refill Request 12/04/2021 Reason Comments Pre-Op Exam Reason Comments Appointment Specialty Diagnoses / Procedures Referred By Contac t Referred To Contact Diagnoses Osteoporosis, unspecified Malignant neoplasm of unspecified site of left female breast Procedures INJECTION, ZOLEDRONIC ACID, 1 MG Raphael Perdomo, SHAHID.MANUAL LATHE OPERATOR [address] [place] [address] [facility] [address] [place] [address] Referral ID Status Reason Start Date Expiration Date V isits Requested Visits Authorized [id number] Authorized 11/17/2020 05/17/2022 4 4 Reason Onset Date Comments Refill Request 04/24/2022 Reason Comments F/U 6 Month Reason Onset Date Comments Refill Request 08/06/2022 Reason Onset Date Comments Refill Request 09/04/2022 Reason Comments Patient Update Reason Comments Medication Follow-up Reason Comments Results Reason Comments Medication Problem Reason Comments Yearly Exam With Mammogram H/o bilateral breast cancer dx in 2019 denies any breast pain Reports no new breasts concerns Specialty Diagnoses / Procedures Referred By Contac t Referred To Contact MR IMAGING Diagnoses Nonruptured cerebral aneurysm Procedures MRA BRAIN WO/W IVCON MRA; HEAD W & WO CONTRAST Gamaliel Reardon, SHAHID.MANUAL LATHE OPERATOR [address] [place] [address] [place] [address] Referral ID Status Reason Start Date Expiration Date V isits Requested Visits Authorized [id number] Closed Auto-Generate d Referral 02/18/2022 03/20/2022 1 1 Reason Comments 3 mo follow up Reason Comments results Reason Comments F/U 3 Month Referral ID Status Reason Start Date Expiration Date V isits Requested Visits Authorized [id number] Authorized 11/17/2020 08/24/2024 10 10 Reason Comments Refill Request Reason Comments Radiology CT Specialty Diagnoses / Procedures Referred By Contac t Referred To Contact CT IMAGING Diagnoses History of abdominal surgery Abdominal pain, chronic, generalized Procedures CT ABD/PEL WO IVCON CT ABD & PELVIS W/O CONTRAST Bradford Love, SHAHID.DEFLECTOR OPERATOR [address] [place] [address] [place] [address] Referral ID Status Reason Start Date Expiration Date V isits Requested Visits Authorized [id number] Closed Auto-Generate d Referral 09/23/2023 10/23/2023 2 1 Reason Comments PT Eval Specialty Diagnoses / Procedures Referred By Contac t Referred To Contact [facility] Diagnoses Gait difficulty Complaints of leg weakness Procedures CONSULT TO PHYSICAL THERAPY PHYSICAL THERAPY EVALUATION HIGH COMPLEX 45 MINS Bradford Love, SHAHDI.DEFLECTOR OPERATOR [address] [place] [address] [facility] [address] [address] Referral ID Status Reason Start Date Expiration Date V isits Requested Visits Authorized [id number] Closed Auto-Generate d Referral 04/28/2023 04/27/2024 1 1 Reason Comments F/U 3 Month Reason Comments Fall Has swelling in Left ankle, foot, bruising down leg, d/t hx pt has no feeling knee down Reason Comments Concerned for pt-see note Vomiting Shortness of Breath Referral ID Status Reason Start Date Expiration Date V isits Requested Visits Authorized [id number] Closed PCP Requested Referral Auto-Generated Referral 10/01/2023 01/26/2024 8 8 Reason Comments Results Reason Comments Medication Question Reason Comments PT Progress Note Specialty Diagnoses / Procedures Referred By Contac t Referred To Contact [facility] Diagnoses Gait difficulty Complaints of leg weakness Procedures PT REHAB FOLLOW UP ORDER THERAPEUTIC EXERCISES RE, EA 15 MIN. Bradford Love, FILM AND VIDEO EDITOR.DEFLECTOR OPERATOR [address] [place] [address] [facility] [address] [address] Specialty Diagnoses / Procedures Referred By Contac t Referred To Contact [facility] Diagnoses Complaints of leg weakness Gait difficulty Procedures PT REHAB FOLLOW UP ORDER THERAPEUTIC EXERCISES RE, EA 15 MIN. Bradford Love, FILM AND VIDEO EDITOR.DEFLECTOR OPERATOR [address] [place] [address] [address] Referral ID Status Reason Start Date Expiration Date Visits Requested Visits Authorized [id number] Authorized PCP Requested Referral Auto-Generate d Referral 11/27/2023 02/27/2024 8 8 Specialty Diagnoses / Procedures Referred By Contac t Referred To Contact [facility] Diagnoses Complaints of leg weakness Gait difficulty Procedures PT REHAB FOLLOW UP ORDER THERAPEUTIC EXERCISES RE, EA 15 MIN. Bradford Love, FILM AND VIDEO EDITOR.DEFLECTOR OPERATOR [address] [place] [address] [address] Reason Comments Medicare Wellness Exam Reason Comments requesting med alert rx Reason Comments Orders Reason Comments Radiology Mammogram Specialty Diagnoses / Procedures Referred By Contac t Referred To Contact BR [facility] Diagnoses Bilateral fibrocystic breast changes Personal history of breast cancer S/P bilateral breast lumpectomy Mass of lower outer quadrant of right breast Procedures WILLIE DIAGNOSTIC BILATERAL DIAGNOSTIC MAMMOGRAPHY COMPUTER-AIDED DETCJ BI Sheela Celeste PA-C [address] [place] [address] [facility] [address] [place] [phone] Referral ID Status Reason Start Date Expiration Date V isits Requested Visits Authorized [id number] Closed Auto-Generate d Referral 12/24/2022 01/23/2024 1 1 Reason Comments Recheck 3 month follow up, i ssue with hands off and on Reason Onset Date Comments ACM TEMI RN 03/02/2024 ED Utilizatio n Review per request of payor Reason Comments F/U 3 Month Reason Comments Future Appointment [facility] [place] Reason Comments Urinary Frequency Frequency and incont inence x 2 days Reason Comments Neuropathy Specialty Diagnoses / Procedures Referred By Contac t Referred To Contact Neurology Diagnoses Cerebral aneurysm (HCC) Procedures CONSULT TO NEUROLOGY OFFICE/OUTPATIENT NEW HIGH MDM 60 MINUTES Melani Zuniga, FILM AND VIDEO EDITOR.MANUAL LATHE OPERATOR [address] [place] [address] Phone: tel: fax: Referral ID Status Reason Start Date Expiration Date V isits Requested Visits Authorized [id number] Closed PCP Requested Referral 07/22/2024 07/21/2025 1 1 Reason Onset Date Comments Refill Request 08/17/2024 Reason Onset Date Comments Transition Of Care 09/01/2024 Reason Comments Hospital Follow Up Reason Onset Date Comments Population Health Navigation Outreach 09/22/2024 Healthy at Home [facility] Care Teams (unrecognized sec tion and content) Audit Lead Relationship Specialty Start Date End Date Ruddy Cooper MD [address] [place], [place] [id number] PCP - General 02/16/02 Sid Storm MD, [address] [place], [place] [id number] Physician Radiation Oncology 02/21/20 Vlad Velasquez MD [address] [place] [address] Home Care Physician Orthopedics 08/08/20 Rigoberto Chase APRN.MANUAL LATHE OPERATOR [address] [place] [id number] Referring Orthopedics 08/08/20 Jaimee Bernard, PT [address] [place], [place] [id number] Cabinet Mounter Post Acute Care 08/08/20 Audit Lead Relationship Specialty Start Date End Date Ruddy Cooper MD [address] [place], [place] [id number] PCP - General 02/16/02 Sid Storm MD, [address] [place], [place] [id number] Physician Radiation Oncology 02/21/20 Vlad Velasquez MD [address] [place] [address] Home Care Physician Orthopedics 08/08/20 Rigoberto Chase APRN.MANUAL LATHE OPERATOR [address] [place] [address] Referring Orthopedics 08/08/20 Jaimee Bernard, PT [address] [place] [address] Cabinet Mounter Post Acute Care 08/08/20 Audit Lead Relationship Specialty Start Date End Date Ruddy Cooper MD [address] [place] [address] PCP - General 02/16/02 Sid Storm MD, [address] [place] [address] Physician Radiation Oncology 02/21/20 Vlad Velasquez MD [address] [place] [address] Home Care Physician Orthopedics 08/08/20 Rigoberto Chase, SHAHID.MANUAL LATHE OPERATOR [address] [place] [address] Referring Orthopedics 08/08/20 Jaimee Bernard, PT [address] [place] [address] Cabinet Mounter Post Acute Care 08/08/20 Audit Lead Relationship Specialty Start Date End Date Ruddy Cooper MD [address] [place] [address] PCP - General 02/16/02 Sid Storm MD, [address] [place] [address] Physician Radiation Oncology 02/21/20 Vlad Velasquez MD [address] [place] [address] Home Care Physician Orthopedics 08/08/20 Rigoberto Chase APRN.MANUAL LATHE OPERATOR [address] [place] [address] Referring Orthopedics 08/08/20 Jaimee Bernard, PT [address] [place] [address] Cabinet Mounter Post Acute Care 08/08/20 Audit Lead Relationship Specialty Start Date End Date Ruddy Cooper MD [address] [place] [address] PCP - General 02/16/02 Sid Storm MD, [address] [place] [address] Physician Radiation Oncology 02/21/20 Vlad Velasquez MD [address] [place] [address] Home Care Physician Orthopedics 08/08/20 Rigoberto Chase APRN.[address] [address] Referring Orthopedics 08/08/20 Jaimee Bernard, PT [address] [place] [address] Cabinet Mounter Post Acute Care 08/08/20 Audit Lead Relationship Specialty Start Date End Date Ruddy Cooper MD [address] [place] [address] PCP - General 02/16/02 Sid Storm MD, [address] [place] [address] Physician Radiation Oncology 02/21/20 Vlad Velasquez MD [address] [place] [address] Home Care Physician Orthopedics 08/08/20 Rigoberto Chase APRN.[address] [address] Referring Orthopedics 08/08/20 Jaimee Bernard, PT [address] [place] [address] Cabinet Mounter Post Acute Care 08/08/20 Audit Lead Relationship Specialty Start Date End Date Ruddy Cooper MD [address] [place] [address] PCP - General 02/16/02 Sid Storm MD, [address] [place] [address] Physician Radiation Oncology 02/21/20 Vlad Velasquez MD [address] [place] [address] Home Care Physician Orthopedics 08/08/20 Rigoberto Chase, FILM AND VIDEO EDITOR.[address] [address] Referring Orthopedics 08/08/20 Jaimee Bernard, PT [address] [place] [address] Cabinet Mounter Post Acute Care 08/08/20 Audit Lead Relationship Specialty Start Date End Date Ruddy Cooper MD [address] [place] [address] PCP - General 02/16/02 Sid Storm MD, [address] [place] [address] Physician Radiation Oncology 02/21/20 Vlad Velasquez MD [address] [facility] [place] [address] Home Care Physician Orthopedics 08/08/20 Rigoberto Chase, FILM AND VIDEO EDITOR.MANUAL LATHE OPERATOR [address] [place] [address] Referring Orthopedics 08/08/20 Jaimee Bernard, PT [address] [place] [address] Cabinet Mounter Post Acute Care 08/08/20 Audit Lead Relationship Specialty Start Date End Date Ruddy Cooper MD [address] [place] [address] PCP - General 02/16/02 Sid Storm MD, [address] [place] [address] Physician Radiation Oncology 02/21/20 Vlad Velasquez MD [address] [place] [address] Home Care Physician Orthopedics 08/08/20 Rigoberto Chase, SHAHID.MANUAL LATHE OPERATOR [address] [place] [address] Referring Orthopedics 08/08/20 Jaimee Bernard, PT [address] [place] [address] Cabinet Mounter Post Acute Care 08/08/20 Audit Lead Relationship Specialty Start Date End Date Ruddy Cooper MD [address] [place] [address] PCP - General 02/16/02 Sid Storm MD, [address] [place] [address] Physician Radiation Oncology 02/21/20 Vlad Velasquez MD [address] [place] [address] Home Care Physician Orthopedics 08/08/20 Rigoberto Chase, FILM AND VIDEO EDITOR.MANUAL LATHE OPERATOR [address] [place] [address] Referring Orthopedics 08/08/20 Jaimee Bernard, PT [address] [place] [address] Cabinet Mounter Post Acute Care 08/08/20 Audit Lead Relationship Specialty Start Date End Date Ruddy Cooper MD [address] [place] [address] PCP - General 02/16/02 Sid Storm MD, [address] [facility] [place] [address] Physician Radiation Oncology 02/21/20 Vlad Velasquez MD [address] [place] [address] Home Care Physician Orthopedics 08/08/20 Rigoberto Chase, FILM AND VIDEO EDITOR.[address] [address] Referring Orthopedics 08/08/20 Jaimee Bernard, PT [address] [place] [address] Cabinet Mounter Post Acute Care 08/08/20 Audit Lead Relationship Specialty Start Date End Date Ruddy Cooper MD [address] [place] [address] PCP - General 02/16/02 Sid Storm MD, [address] [facility] [place] [place] [address] Physician Radiation Oncology 02/21/20 Vlad Velasquez MD [address] [place] [address] Home Care Physician Orthopedics 08/08/20 Rigoberto Chase, FILM AND VIDEO EDITOR.[address] [address] Referring Orthopedics 08/08/20 Jaimee Bernard, PT [address] [place] [address] Cabinet Mounter Post Acute Care 08/08/20 Audit Lead Relationship Specialty Start Date End Date Ruddy Cooper MD [address] [place] [address] PCP - General 02/16/02 Sid Storm MD, [address] [place] [address] Physician Radiation Oncology 02/21/20 Vlad Velasquez MD [address] [facility] [place] [place] [address] Home Care Physician Orthopedics 08/08/20 Rigoberto Chase APRN.[address] [address] Referring Orthopedics 08/08/20 Jaimee Bernard, PT [address] [place] [address] Cabinet Mounter Post Acute Care 08/08/20 Audit Lead Relationship Specialty Start Date End Date Ruddy Cooper MD [address] [place] [address] PCP - General 02/16/02 Sid Storm MD, [address] [place] [address] Physician Radiation Oncology 02/21/20 Vlad Velasquez MD [address] [facility] [place] [address] Home Care Physician Orthopedics 08/08/20 Rigoberto Chase, SHAHID.[address] [address] Referring Orthopedics 08/08/20 Jaimee Bernard, PT [address] [place] [address] Cabinet Mounter Post Acute Care 08/08/20 Audit Lead Relationship Specialty Start Date End Date Ruddy Cooper MD [address] [place] [address] PCP - General 02/16/02 Sid Storm MD, [address] [place] [address] Physician Radiation Oncology 02/21/20 Vlad Velasquez MD [address] [facility] [place] [address] Home Care Physician Orthopedics 08/08/20 Rigoberto Chase, SHAHID.[address] [address] Referring Orthopedics 08/08/20 Jaimee Bernard, PT [address] [place] [address] Cabinet Mounter Post Acute Care 08/08/20 Audit Lead Relationship Specialty Start Date End Date Ruddy Cooper MD [address] [place] [address] PCP - General 02/16/02 Sid Storm MD, [address] [place] [address] Physician Radiation Oncology 02/21/20 Vlad Velasquez MD [address] [place] [address] Home Care Physician Orthopedics 08/08/20 Rigoberto Chase, SHAHID.[address] [address] Referring Orthopedics 08/08/20 Jaimee Bernard, PT [address] [place] [address] Cabinet Mounter Post Acute Care 08/08/20 Audit Lead Relationship Specialty Start Date End Date Ruddy Cooper MD [address] [place] [address] PCP - General 02/16/02 Sid Storm MD, [address] [place] [address] Physician Radiation Oncology 02/21/20 Vlad Velasquez MD [address] [facility] [place] [address] Home Care Physician Orthopedics 08/08/20 Rigoberto Chase, SHAHID.MANUAL LATHE OPERATOR [address] [place] [address] Referring Orthopedics 08/08/20 Jaimee Bernard, PT [address] [place] [address] Cabinet Mounter Post Acute Care 08/08/20 Audit Lead Relationship Specialty Start Date End Date Ruddy Cooper MD [address] [place] [address] PCP - General 02/16/02 Sid Storm MD, [address] [place] [address] Physician Radiation Oncology 02/21/20 Vlad Velasquez MD [address] [facility] [place] [address] Home Care Provider Orthopedics 08/08/20 Rigoberto Chase, FILM AND VIDEO EDITOR.MANUAL LATHE OPERATOR [address] [place] [address] Referring Orthopedics 08/08/20 Jaimee Bernard, PT [address] [place] [address] Cabinet Mounter Post Acute Care 08/08/20 Audit Lead Relationship Specialty Start Date End Date Ruddy Cooper MD [address] [place] [address] PCP - General 02/16/02 Sid Storm MD, [address] [place] [address] Physician Radiation Oncology 02/21/20 Vlad Velasquez MD [address] [place] [address] Home Care Provider Orthopedics 08/08/20 Rigoberto Chase APRN.MANUAL LATHE OPERATOR [address] [place] [address] Referring Orthopedics 08/08/20 Jaimee Bernard, PT [address] [place] [address] Cabinet Mounter Post Acute Care 08/08/20 Audit Lead Relationship Specialty Start Date End Date Ruddy Cooper MD [address] [place] [address] PCP - General 02/16/02 Sid Storm MD, [address] [place] [address] Physician Radiation Oncology 02/21/20 Vlad Velasquez MD [address] [facility] [place] [address] Home Care Provider Orthopedics 08/08/20 Rigoberto Chase, FILM AND VIDEO EDITOR.MANUAL LATHE OPERATOR [address] [place] [address] Referring Orthopedics 08/08/20 Jaimee Bernard, PT [address] [place] [address] Cabinet Mounter Post Acute Care 08/08/20 Audit Lead Relationship Specialty Start Date End Date Ruddy Cooper MD [address] [place] [address] PCP - General 02/16/02 Sid Storm MD, [address] [place] [address] Physician Radiation Oncology 02/21/20 Vlad Velasquez MD [address] [place] [address] Home Care Provider Orthopedics 08/08/20 Rigoberto Chase, FILM AND VIDEO EDITOR.MANUAL LATHE OPERATOR [address] [place] [address] Referring Orthopedics 08/08/20 Jaimee Bernard, PT [address] [place], [place] [address]25531 Cabinet Mounter Post Acute Care 08/08/20 Audit Lead Relationship Specialty Start Date End Date Ruddy Cooper MD [address] [place] [address] PCP - General 02/16/02 Sid Storm MD, [address] [place] [address] Physician Radiation Oncology 02/21/20 Vlad Velasquez MD [address] [place] [address] Home Care Provider Orthopedics 08/08/20 Rigoberto Chase APRN.[address] [address] Referring Orthopedics 08/08/20 Jaimee Bernard, PT [address] [place] [address] Cabinet Mounter Post Acute Care 08/08/20 Audit Lead Relationship Specialty Start Date End Date Ruddy Cooper MD [address] [place] [address] PCP - General 02/16/02 Sid Storm MD, [address] [place] [address] Physician Radiation Oncology 02/21/20 Vlad Velasquez MD [address] [place] [address] Home Care Provider Orthopedics 08/08/20 Rigoberto Chase, SHAHID.[address] [address] Referring Orthopedics 08/08/20 Jaimee Bernard, PT [address] [place], [place] 8754331 Cabinet Mounter Post Acute Care 08/08/20 Audit Lead Relationship Specialty Start Date End Date Ruddy Cooper MD [address] [place] [address] PCP - General 02/16/02 Sid Storm MD, [address] [place] [address] Physician Radiation Oncology 02/21/20 Vlad Velasquez MD [address] [place] [address] Home Care Provider Orthopedics 08/08/20 Rigoberto Chase, FILM AND VIDEO EDITOR.MANUAL LATHE OPERATOR [address] [place] [address] Referring Orthopedics 08/08/20 Jaimee Bernard, PT [address] [place] [address] Cabinet Mounter Post Acute Care 08/08/20 Audit Lead Relationship Specialty Start Date End Date Ruddy Cooper MD [address] [place] [address] PCP - General 02/16/02 Sid Storm MD, [address] [place] [address] Physician Radiation Oncology 02/21/20 Vlad Velasquez MD [address] [place] [address] Home Care Provider Orthopedics 08/08/20 Rigoberto Chase, FILM AND VIDEO EDITOR.MANUAL LATHE OPERATOR [address] [place] [address] Referring Orthopedics 08/08/20 Jaimee Bernard, PT [address] [place] [address] Cabinet Mounter Post Acute Care 08/08/20 Audit Lead Relationship Specialty Start Date End Date Ruddy Cooper MD [address] [place] [address] PCP - General 02/16/02 Sid Storm MD, [address] [facility] [place] [address] Physician Radiation Oncology 02/21/20 Vlad Velasquez MD [address] [place] [address] Home Care Provider Orthopedics 08/08/20 Rigoberto Chase APRN.MANUAL LATHE OPERATOR [address] [place] [address] Referring Orthopedics 08/08/20 Jaimee Bernard, PT [address] [place] [address] Cabinet Mounter Post Acute Care 08/08/20 Audit Lead Relationship Specialty Start Date End Date Ruddy Cooper MD [address] [place] [address] PCP - General 02/16/02 Sid Storm MD, [address] [place] [address] Physician Radiation Oncology 02/21/20 Vlad Velasquez MD [address] [place] [address] Home Care Provider Orthopedics 08/08/20 Rigoberto Chase APRN.[address] [address] Referring Orthopedics 08/08/20 Jaimee Bernard, PT [address] [place] [address] Cabinet Mounter Post Acute Care 08/08/20 Audit Lead Relationship Specialty Start Date End Date Ruddy Cooper MD [address] [place] [address] PCP - General 02/16/02 Sid Storm MD, [address] [facility] [place] [place] [address] Physician Radiation Oncology 02/21/20 Vlad Velasquez MD [address] [facility] [place] [address] Home Care Provider Orthopedics 08/08/20 Rigoberto Chase, FILM AND VIDEO EDITOR.[address] [address] Referring Orthopedics 08/08/20 Jaimee Bernard, PT [address] [place] [address] Cabinet Mounter Post Acute Care 08/08/20 Audit Lead Relationship Specialty Start Date End Date Ruddy Cooper MD [address] [place] [address] PCP - General 02/16/02 Sid Storm MD, [address] [place] [address] Physician Radiation Oncology 02/21/20 Vlad Velasquez MD [address] [facility] [place] [address] Home Care Provider Orthopedics 08/08/20 Rigoberto Chase, FILM AND VIDEO EDITOR.[address] [address] Referring Orthopedics 08/08/20 Jaimee Bernard, PT [address] [place] [address] Cabinet Mounter Post Acute Care 08/08/20 Audit Lead Relationship Specialty Start Date End Date Ruddy Cooper MD [address] [place] [address] PCP - General 02/16/02 Sid Storm MD, [address] [place] [address] Physician Radiation Oncology 02/21/20 Vlad Velasquez MD [address] [facility] [place] [address] Home Care Provider Orthopedics 08/08/20 Rigoberto Chase APRN.MANUAL LATHE OPERATOR [address] [place] [address] Referring Orthopedics 08/08/20 Jaimee Bernard, PT [address] [place] [address] Cabinet Mounter Post Acute Care 08/08/20 Audit Lead Relationship Specialty Start Date End Date Ruddy Cooper MD [address] [place] [address] PCP - General 02/16/02 Sid Storm MD, [address] [place] [address] Physician Radiation Oncology 02/21/20 Vald Velasquez MD [address] [facility] [place] [address] Home Care Provider Orthopedics 08/08/20 Rigoberto Chase APRN.[facility] [address] [place] [address] Referring Orthopedics 08/08/20 Jaimee Bernard, PT [address] [place] [address] Cabinet Mounter Post Acute Care 08/08/20 Audit Lead Relationship Specialty Start Date End Date Ruddy Cooper MD [address] [place] [address] PCP - General 02/16/02 Sid Storm MD, [address] [place] [address] Physician Radiation Oncology 02/21/20 Vlad Velasquez MD [address] [place] [address] Home Care Provider Orthopedics 08/08/20 Rigoberto Chase APRN.MANUAL LATHE OPERATOR [address] [place] [address] Referring Orthopedics 08/08/20 Audit Lead Relationship Specialty Start Date End Date Ruddy Cooper MD [facility] [place] [address] PCP - General 02/16/02 Sid Storm MD, [address] [place] [address] Physician Radiation Oncology 02/21/20 Vlad Velasquez MD [address] [facility] [place] [address] Home Care Provider Orthopedics 08/08/20 Rigoberto Chase APRN.MANUAL LATHE OPERATOR [address] [place] [address] Referring Orthopedics 08/08/20 Audit Lead Relationship Specialty Start Date End Date Ruddy Cooper MD [address] [place] [address] PCP - General 02/16/02 Sid Storm MD, MD [address] [place] [address] Physician Radiation Oncology 02/21/20 Vlad Velasquez MD [address] [facility] [place] [address] Home Care Provider Orthopedics 08/08/20 Rigoberto Chase APRN.MANUAL LATHE OPERATOR [address] [place] [address] Referring Orthopedics 08/08/20 Audit Lead Relationship Specialty Start Date End Date Ruddy Cooper MD [address] [place], [place] 713281 PCP - General 02/16/02 Sid Storm MD, [address] [place], [place] 754131 Physician Radiation Oncology 02/21/20 Vlad Velasquez MD [address] IG[address] Alejandra [place] [id number] Home Care Provider Orthopedics 08/08/20 Rigoberto Chase FILM AND VIDEO EDITOR.MANUAL LATHE OPERATOR [address] [place] [address] Referring Orthopedics 08/08/20 Audit Lead Relationship Specialty Start Date End Date Ruddy Cooper MD [address] [place], [place] 415341 PCP - General 02/16/02 Sid Storm MD, [address] [place], [place] 929431 [phone] Physician Radiation Oncology 02/21/20 Vlad Velasquez MD [address] [place] [address] Home Care Provider Orthopedics 08/08/20 Rigoberto Chase APRN.MANUAL LATHE OPERATOR [address] [place] [address] Referring Orthopedics 08/08/20 Audit Lead Relationship Specialty Start Date End Date Ruddy Cooper MD [address] [place] [address] PCP - General 02/16/02 Sid Storm MD, [address] [place] [address] Physician Radiation Oncology 02/21/20 Vlad Velasquez MD [address] [place] [address] Home Care Provider Orthopedics 08/08/20 Rigoberto Chase APRN.MANUAL LATHE OPERATOR [address] [place] [address] Referring Orthopedics 08/08/20 Audit Lead Relationship Specialty Start Date End Date Ruddy Cooper MD [address] [place] [address] PCP - General 02/16/02 Sid Storm MD, [address] [place] [address] Physician Radiation Oncology 02/21/20 Vlad Velasquez MD [address] [place] [address] Home Care Provider Orthopedics 08/08/20 Rigoberto Chase APRN.MANUAL LATHE OPERATOR [address] [place] [address] [phone] Referring Orthopedics 08/08/20 Jaimee Bernard, PT [address] [place] [address] Cabinet Mounter Post Acute Care 08/08/20 11/25/22 Audit Lead Relationship Specialty Start Date End Date Ruddy Cooper MD [address] [place] [address] PCP - General 02/16/02 Sid Storm MD, [address] [place] [address] Physician Radiation Oncology 02/21/20 Vlad Velasquez MD [address] [facility] [place] [address] Home Care Provider Orthopedics 08/08/20 Rigoberto Chase APRN.MANUAL LATHE OPERATOR [address] [place] [address] Referring Orthopedics 08/08/20 Jaimee Bernard, PT [address] [place] [address] Cabinet Mounter Post Acute Care 08/08/20 11/25/22 Audit Lead Relationship Specialty Start Date End Date Ruddy Cooper MD [address] [place] [address] PCP - General 02/16/02 Sid Storm MD, [address] [place] [address] Physician Radiation Oncology 02/21/20 Vlad Velasquez MD [address] [address] Home Care Provider Orthopedics 08/08/20 Rigoberto Chase APRN.MANUAL LATHE OPERATOR [address] [place] [address]406 Referring Orthopedics 08/08/20 Audit Lead Relationship Specialty Start Date End Date Ruddy Cooper MD [address] [place] [address] PCP - General 02/16/02 Sid Storm MD, [address] [place] [address] Physician Radiation Oncology 02/21/20 Vlad Velasquez MD [address] [place] [address] Home Care Provider Orthopedics 08/08/20 Rigoberto Chase APRN.MANUAL LATHE OPERATOR [address] [place] [address] Referring Orthopedics 08/08/20 Audit Lead Relationship Specialty Start Date End Date Ruddy Cooper MD [address] [place] [address] PCP - General 02/16/02 Sid Storm MD, [address] [place] [address] Physician Radiation Oncology 02/21/20 Vlad Velasquez MD [address] [place] [address] Home Care Provider Orthopedics 08/08/20 Rigoberto Chase APRN.MANUAL LATHE OPERATOR [address] [place] [address] [phone] Referring Orthopedics 08/08/20 Audit Lead Relationship Specialty Start Date End Date Ruddy Cooper MD [address] [place], [place] 489371 PCP - General 02/16/02 Sid Storm MD [address] [facility] [place] [address] Physician Radiation Oncology 02/21/20 Vlad Velasquez MD [address] [place] [address] Home Care Provider Orthopedics 08/08/20 Rigoberto Chase, FILM AND VIDEO EDITOR.MANUAL LATHE OPERATOR [address] [place] [address]978 Referring Orthopedics 08/08/20 Audit Lead Relationship Specialty Start Date End Date Ruddy Cooper MD [address] [place] [address] PCP - General 02/16/02 Sid Storm MD [address] [place] [address] Physician Radiation Oncology 02/21/20 Vlad Velasquez MD [address] [place] [address] Home Care Provider Orthopedics 08/08/20 Rigoberto Chase, FILM AND VIDEO EDITOR.MANUAL LATHE OPERATOR [address] [place] [address] 94267 Referring Orthopedics 08/08/20 Audit Lead Relationship Specialty Start Date End Date Ruddy Cooper MD [address] [place] [address] PCP - General 02/16/02 Sid Storm MD [address] [facility] [place] [address] Physician Radiation Oncology 02/21/20 Vlad Velasquez MD [address] [facility] [place] [address] Home Care Provider Orthopedics 08/08/20 Rigoberto Chase APRN.MANUAL LATHE OPERATOR [address] [place] [address] Referring Orthopedics 08/08/20 Audit Lead Relationship Specialty Start Date End Date Ruddy Cooper MD [address] [place] [address] PCP - General 02/16/02 Sid Storm MD [address] [place] [address] Physician Radiation Oncology 02/21/20 Vlad Velasquez MD [address] [place] [address] Home Care Provider Orthopedics 08/08/20 Rigoberto Chase FILM AND VIDEO EDITOR.MANUAL LATHE OPERATOR [address] [place] [address] Referring Orthopedics 08/08/20 Audit Lead Relationship Specialty Start Date End Date Ruddy Cooper MD [facility] [place] [address] PCP - General 02/16/02 Sid Storm MD [address] [place] [address] Physician Radiation Oncology 02/21/20 Vlad Velasquez MD [address] [place] [address] Home Care Provider Orthopedics 08/08/20 Rigoberto Chase APRN.MANUAL LATHE OPERATOR [address] [place] [address] 16245 Referring Orthopedics 08/08/20 Audit Lead Relationship Specialty Start Date End Date Ruddy Cooper MD [address] [place] [address] PCP - General 02/16/02 Sid Storm MD [address] [place] [address] Physician Radiation Oncology 02/21/20 Vlad Velasquez MD [address] [place] [address] Home Care Provider Orthopedics 08/08/20 Rigoberto Chase APRN.MANUAL LATHE OPERATOR [address] [place] [address]12 Referring Orthopedics 08/08/20 Audit Lead Relationship Specialty Start Date End Date Ruddy Cooper MD [address] [place] [address] PCP - General 02/16/02 Sid Storm MD [address] [place] [address] Physician Radiation Oncology 02/21/20 Vlad Velasquez MD [address] [place] [address] Home Care Provider Orthopedics 08/08/20 Rigoberto Chase APRN.MANUAL LATHE OPERATOR [address] [place] [address]46 Referring Orthopedics 08/08/20 Audit Lead Relationship Specialty Start Date End Date Ruddy Cooper MD [address] [place] [address] PCP - General 02/16/02 Sid Storm MD [address] [place] [address] Physician Radiation Oncology 02/21/20 Vlad Velasquez MD [address] [place] [address] Home Care Provider Orthopedics 08/08/20 Rigoberto Chase, FILM AND VIDEO EDITOR.MANUAL LATHE OPERATOR [address] [place] [address] Referring Orthopedics 08/08/20 Audit Lead Relationship Specialty Start Date End Date Ruddy Cooper MD [address] [place] [address] PCP - General 02/16/02 Sid Storm MD [address] [place] [address] Physician Radiation Oncology 02/21/20 Vlad Velasquez MD [address] [place] [address] Home Care Provider Orthopedics 08/08/20 Rigoberto Chase, FILM AND VIDEO EDITOR.MANUAL LATHE OPERATOR [address] [place] [address] Referring Orthopedics 08/08/20 Audit Lead Relationship Specialty Start Date End Date Ruddy Cooper MD [address] [place] [address] PCP - General 02/16/02 Sid Storm MD [address] [place] [address] Physician Radiation Oncology 02/21/20 Vlad Velasquez MD [address] [place] [address] Home Care Provider Orthopedics 08/08/20 Rigoberto Chase, FILM AND VIDEO EDITOR.MANUAL LATHE OPERATOR [address] [place] [address] Referring Orthopedics 08/08/20 Audit Lead Relationship Specialty Start Date End Date Ruddy Cooper MD [address] [place] [address] PCP - General 02/16/02 Sid Storm MD [address] [place] [address] Physician Radiation Oncology 02/21/20 Vlad Velasquez MD [address] [place] [address] Home Care Provider Orthopedics 08/08/20 Rigoberto Chase, FILM AND VIDEO EDITOR.MANUAL LATHE OPERATOR [address] [place] [address] 78906 Referring Orthopedics 08/08/20 Audit Lead Relationship Specialty Start Date End Date Ruddy Cooper MD [address] [place] [address] PCP - General 02/16/02 Sid Storm MD [address] [place] [address] Physician Radiation Oncology 02/21/20 Vlad Velasquez MD [address] [place] [address] Home Care Provider Orthopedics 08/08/20 Rigoberto Chase APRN.MANUAL LATHE OPERATOR [address] [place] [address] 7[address]24 Referring Orthopedics 08/08/20 Audit Lead Relationship Specialty Start Date End Date Ruddy Cooper MD [address] [place] [address] PCP - General 02/16/02 Sid Storm MD [address] [place], [place] 025491 Physician Radiation Oncology 02/21/20 Vlad Velasquez MD [address] [place] [address] Home Care Provider Orthopedics 08/08/20 Rigoberto Chase, FILM AND VIDEO EDITOR.MANUAL LATHE OPERATOR [address] [place] [address] 21573 Referring Orthopedics 08/08/20 Audit Lead Relationship Specialty Start Date End Date Ruddy Cooper MD [address] [place] [address] PCP - General 02/16/02 Sid Storm MD [address] [place] [address] Physician Radiation Oncology 02/21/20 Vlad Velasquez MD [address] [place] [address] Home Care Provider Orthopedics 08/08/20 Rigoberto Chase, FILM AND VIDEO EDITOR.MANUAL LATHE OPERATOR [address] [place] [address]09 Referring Orthopedics 08/08/20 Audit Lead Relationship Specialty Start Date End Date Ruddy Cooper MD [address] [place] [address] PCP - General 02/16/02 Sid Storm MD [address] [place] [address] Physician Radiation Oncology 02/21/20 Vlad Velasquez MD [address] [place] [address] Home Care Provider Orthopedics 08/08/20 Rigoberto Chase, FILM AND VIDEO EDITOR.MANUAL LATHE OPERATOR [address] [place] [address] 32258 Referring Orthopedics 08/08/20 Audit Lead Relationship Specialty Start Date End Date Ruddy Cooper MD [address] [place] [address] PCP - General 02/16/02 Sid Storm MD [address] [place] [address] Physician Radiation Oncology 02/21/20 Vlad Velasquez MD [address] [place] [address] Home Care Provider Orthopedics 08/08/20 Rigoberto Chase FILM AND VIDEO EDITOR.MANUAL LATHE OPERATOR [address] [place] [address] 07672 Referring Orthopedics 08/08/20 Audit Lead Relationship Specialty Start Date End Date Ruddy Cooper MD [address] [place], [place] 553531 PCP - General 02/16/02 Sid Storm MD [address] [place] [address] Physician Radiation Oncology 02/21/20 Vlad Velasquez MD [address] [place] [address] Home Care Provider Orthopedics 08/08/20 Rigoberto Chase, FILM AND VIDEO EDITOR.MANUAL LATHE OPERATOR [address] [place] [address] 26641 Referring Orthopedics 08/08/20 Audit Lead Relationship Specialty Start Date End Date Ruddy Cooper MD [address] [place] [address] PCP - General 02/16/02 Sid Storm MD [address] [place], [place] 0[address] [phone] Physician Radiation Oncology 02/21/20 Vlad Velasquez MD [address] [place] [address] Home Care Provider Orthopedics 08/08/20 Rigoberto Chase, FILM AND VIDEO EDITOR.MANUAL LATHE OPERATOR [address] [place] [address] 77684 Referring Orthopedics 08/08/20 Audit Lead Relationship Specialty Start Date End Date Ruddy Cooper MD [address] [place] [address] PCP - General 02/16/02 Sid Storm MD [address] [place] [address] Physician Radiation Oncology 02/21/20 Vlad Velasquez MD [address] [place] [address] Home Care Provider Orthopedics 08/08/20 Rigoberto Chase, SHAHID.MANUAL LATHE OPERATOR [address] [place] [address] 29440 Referring Orthopedics 08/08/20 Audit Lead Relationship Specialty Start Date End Date Ruddy Cooper MD [address] [place] [address] PCP - General 02/16/02 Sid Storm MD [address] [place] [address] Physician Radiation Oncology 02/21/20 Vlad Velasquez MD [address] [place] [address] Home Care Provider Orthopedics 08/08/20 Rigoberto Chase, FILM AND VIDEO EDITOR.MANUAL LATHE OPERATOR [address] [place] [address] 38392 Referring Orthopedics 08/08/20 Audit Lead Relationship Specialty Start Date End Date Ruddy Cooper MD [address] [place] [address] PCP - General 02/16/02 Sid Storm MD [address] [place] [address] Physician Radiation Oncology 02/21/20 Vlad Velasquez MD [address] [place] [address] Home Care Provider Orthopedics 08/08/20 Rigoberto Chase APRN.MANUAL LATHE OPERATOR [address] [place] [address] 35455 Referring Orthopedics 08/08/20 Audit Lead Relationship Specialty Start Date End Date Ruddy Cooper MD [address] [place], [place] 760991 PCP - General 02/16/02 Sid Storm MD [address] [place], [place] 327513 [phone] Physician Radiation Oncology 02/21/20 Vlad Velasquez MD [address] [place] [address] Home Care Provider Orthopedics 08/08/20 Rigoberto Chase APRN.MANUAL LATHE OPERATOR [address] [place] [address] 34519 Referring Orthopedics 08/08/20 Audit Lead Relationship Specialty Start Date End Date Ruddy Cooper MD [address] [place] [address] PCP - General 02/16/02 Sid Storm MD [address] [place] [address] Physician Radiation Oncology 02/21/20 Vlad Velasquez MD [address] [facility] [place] [address] Home Care Provider Orthopedics 08/08/20 Rigoberto Chase APRN.MANUAL LATHE OPERATOR [address] [place] [address] 20912 Referring Orthopedics 08/08/20 Audit Lead Relationship Specialty Start Date End Date Ruddy Cooper MD [address] [place] [address] PCP - General 02/16/02 Sid Storm MD [address] [place] [address] Physician Radiation Oncology 02/21/20 Vlad Velasquez MD [address] [place] [address] Home Care Provider Orthopedics 08/08/20 Rigoberto Chase APRN.MANUAL LATHE OPERATOR [address] [place] [address] 20677 Referring Orthopedics 08/08/20 Audit Lead Relationship Specialty Start Date End Date Ruddy Coopre MD [address] [place] [address] PCP - General 02/16/02 Sid Storm MD [address] [place] [address] Physician Radiation Oncology 02/21/20 Vlad Velasquez MD [address] [address] Home Care Provider Orthopedics 08/08/20 Rigoberto Chase APRN.MANUAL LATHE OPERATOR [address] [place] [address] 16608 Referring Orthopedics 08/08/20 Audit Lead Relationship Specialty Start Date End Date Ruddy Cooper MD [address] [place] [address] PCP - General 02/16/02 Sid Storm MD [address] [facility] [place] [place] [address] Physician Radiation Oncology 02/21/20 Vlad Velasquez MD [address] [place] [address] Home Care Provider Orthopedics 08/08/20 Rigoberto Chase, FILM AND VIDEO EDITOR.MANUAL LATHE OPERATOR [address] [place] [address] Referring Orthopedics 08/08/20 Audit Lead Relationship Specialty Start Date End Date Ruddy Cooper MD [address] [place] [address] PCP - General 02/16/02 Sid Storm MD [address] [place] [address] Physician Radiation Oncology 02/21/20 Vlad Velasquez MD [address] [place] [address] Home Care Provider Orthopedics 08/08/20 Rigoberto Chase, FILM AND VIDEO EDITOR.MANUAL LATHE OPERATOR [address] [place] [address] Referring Orthopedics 08/08/20 Audit Lead Relationship Specialty Start Date End Date Ruddy Cooper MD [address] [place] [address] PCP - General 02/16/02 Sid Storm MD [address] [facility] [place] [address] Physician Radiation Oncology 02/21/20 Vlad Velasquez MD [address] [facility] [place] [address] Home Care Provider Orthopedics 08/08/20 Rigoberto Chase APRN.MANUAL LATHE OPERATOR [address] [place] [phone] Referring Orthopedics 08/08/20 Audit Lead Relationship Specialty Start Date End Date Ruddy Cooper MD [address] [place] [address] PCP - General 02/16/02 Sid Storm MD [address] [place] [address] Physician Radiation Oncology 02/21/20 Vlad Velasquez MD [address] [place] [address] Home Care Provider Orthopedics 08/08/20 Rigoberto Chase FILM AND VIDEO EDITOR.MANUAL LATHE OPERATOR [address] [place] [address] Referring Orthopedics 08/08/20 Audit Lead Relationship Specialty Start Date End Date Ruddy Cooper MD [facility] [place] [address] PCP - General 02/16/02 Sid Storm MD [address] [place] [address] Physician Radiation Oncology 02/21/20 Vlad Velasquez MD [address] [place] [address] Home Care Provider Orthopedics 08/08/20 Rigoberto Chase APRN.MANUAL LATHE OPERATOR [address] [place] [address] Referring Orthopedics 08/08/20 Audit Lead Relationship Specialty Start Date End Date Ruddy Cooper MD [address] [place] [address] PCP - General 02/16/02 Sid Storm MD [address] [place] [address] Physician Radiation Oncology 02/21/20 Vlad Velasquez MD [address] [place] [address] Home Care Provider Orthopedics 08/08/20 Rigoberto Chase APRN.MANUAL LATHE OPERATOR [address] [place] [address] Referring Orthopedics 08/08/20 Audit Lead Relationship Specialty Start Date End Date Ruddy Cooper MD [address] [place] [address] PCP - General 02/16/02 Sid Storm MD [address] [place] [address] Physician Radiation Oncology 02/21/20 Vlad Velasquez MD [address] [place] [address] Home Care Provider Orthopedics 08/08/20 Rigoberto Chase APRN.MANUAL LATHE OPERATOR [address] [place] [address] Referring Orthopedics 08/08/20 Audit Lead Relationship Specialty Start Date End Date Ruddy Cooper MD [address] [place] [address] PCP - General 02/16/02 Sid Storm MD [address] [place] [address] Physician Radiation Oncology 02/21/20 Vlad Velasquez MD [address] [place] [address] Home Care Provider Orthopedics 08/08/20 Rigoberto Chase, FILM AND VIDEO EDITOR.MANUAL LATHE OPERATOR [address] [place] [address]10 Referring Orthopedics 08/08/20 Audit Lead Relationship Specialty Start Date End Date Ruddy Cooper MD [address] [place] [address] PCP - General 02/16/02 Sid Storm MD [address] [place] [address] Physician Radiation Oncology 02/21/20 Vlad Velasquez MD [address] [place] [address] Home Care Provider Orthopedics 08/08/20 Rigoberto Chase, FILM AND VIDEO EDITOR.MANUAL LATHE OPERATOR [address] [place] [address] Referring Orthopedics 08/08/20 Audit Lead Relationship Specialty Start Date End Date Ruddy Cooper MD [address] [place] [address] PCP - General 02/16/02 Sid Storm MD [address] [place] [address] Physician Radiation Oncology 02/21/20 Vlad Velasquez MD [address] [place] [address] Home Care Provider Orthopedics 08/08/20 Rigoberto Chase APRN.MANUAL LATHE OPERATOR [address] [place] [address] Referring Orthopedics 08/08/20 Jaimee Bernard, PT [address] [place] [address] Cabinet Mounter Post Acute Care 08/08/20 11/25/22 Audit Lead Relationship Specialty Start Date End Date Ruddy Cooper MD [address] [place] [address] PCP - General 02/16/02 Sid Storm MD [address] [place], [place] 245911 Physician Radiation Oncology 02/21/20 Vlad Velasquez MD [address] [place] [address] Home Care Provider Orthopedics 08/08/20 Rigoberto Chase APRN.MANUAL LATHE OPERATOR [address] [place] [address] Referring Orthopedics 08/08/20 Jaimee Bernard, PT [address] [place], [place] [id number] Cabinet Mounter Post Acute Care 08/08/20 11/25/22 Audit Lead Relationship Specialty Start Date End Date Ruddy Cooper MD [address] [place], [place] 114061 PCP - General 02/16/02 Sid Storm MD [address] [place] [address] Physician Radiation Oncology 02/21/20 Audit Lead Relationship Specialty Start Date End Date Ruddy Cooper MD [address] [place] [address] PCP - General 02/16/02 Sid Storm MD [address] [place] [address] Physician Radiation Oncology 02/21/20 Vlad Velasquez MD [address] [facility] [place] [address] Home Care Provider Orthopedics 08/08/20 Rigoberto Chase, FILM AND VIDEO EDITOR.MANUAL LATHE OPERATOR [address] [place] [address]36 Referring Orthopedics 08/08/20 Audit Lead Relationship Specialty Start Date End Date Ruddy Cooper MD [address] [place] [address] PCP - General 02/16/02 Sid Sotrm MD [address] [place] [address] Physician Radiation Oncology 02/21/20 Vlad Velasquez MD [address] [place] [address] Home Care Provider Orthopedics 08/08/20 Rigoberto Cahse APRN.MANUAL LATHE OPERATOR [address] [place] [address] 20130 Referring Orthopedics 08/08/20 Audit Lead Relationship Specialty Start Date End Date Ruddy Cooper MD [address] [place] [address] PCP - General 02/16/02 Sid Storm MD [address] [place] [address] Physician Radiation Oncology 02/21/20 Vlad Velasquez MD [address] [place] [address] Home Care Provider Orthopedics 08/08/20 Rigoberto Chase APRN.MANUAL LATHE OPERATOR [address] [place] [address] 26444 Referring Orthopedics 08/08/20 Audit Lead Relationship Specialty Start Date End Date Ruddy Cooper MD [address] [place] [address] PCP - General 02/16/02 Sid Storm MD [address] [place] [address] Physician Radiation Oncology 02/21/20 Vlad Velasquez MD [address] [place] [address] Home Care Provider Orthopedics 08/08/20 Rigoberto Chase APRN.MANUAL LATHE OPERATOR [address] [place] [address] 27190 Referring Orthopedics 08/08/20 Audit Lead Relationship Specialty Start Date End Date Ruddy Cooper MD [address] [place], [place] 022581 PCP - General 02/16/02 Sid Storm MD [address] [place], [place] 468041 Physician Radiation Oncology 02/21/20 Vlad Velasquez MD [address] [place] [address] Home Care Provider Orthopedics 08/08/20 Rigoberto Chase, FILM AND VIDEO EDITOR.MANUAL LATHE OPERATOR [address] [place] [address] [phone] Referring Orthopedics 08/08/20 Bradford Love FILM AND VIDEO EDITOR.DEFLECTOR OPERATOR [address] [place], [place] 864801 Home Designer Internal Medicine 04/05/24 Elma Fuchs FILM AND VIDEO EDITOR.MANUAL LATHE OPERATOR [address] [place] [address] Home Designer Internal Medicine 04/05/24 Audit Lead Relationship Specialty Start Date End Date Ruddy Cooper MD [address] [place] [address] PCP - General 02/16/02 Sid Storm MD [address] [place] [address] Physician Radiation Oncology 02/21/20 Vlad Velasquez MD [address] [place] [address] Home Care Provider Orthopedics 08/08/20 Rigoberto Chase, FILM AND VIDEO EDITOR.MANUAL LATHE OPERATOR [address] [place] [address], [address] [place] [address] [phone] Referring Orthopedics 08/08/20 Bradford Love FILM AND VIDEO EDITOR.DEFLECTOR OPERATOR [address] [place] [address] Home Designer Internal Medicine 04/05/24 Elma Fuchs FILM AND VIDEO EDITOR.MANUAL LATHE OPERATOR [address] [place], [place] 001241 Home Designer Internal Medicine 04/05/24 Audit Lead Relationship Specialty Start Date End Date Ruddy Cooper MD [address] [place], [place] 738421 PCP - General 02/16/02 Sid Storm MD [address] [place], [place] 773001 Physician Radiation Oncology 02/21/20 Vlad Velasquez MD [address] [place] [address] Home Care Provider Orthopedics 08/08/20 Rigoberto Chase APRN.MANUAL LATHE OPERATOR [address] [address] Referring Orthopedics 08/08/20 Bradford Love APRN.DEFLECTOR OPERATOR [address] [place] [address] Home Designer Internal Medicine 04/05/24 Elma Fuchs FILM AND VIDEO EDITOR.MANUAL LATHE OPERATOR [address] [place], [place] 456141 Home Designer Internal Medicine 04/05/24 Audit Lead Relationship Specialty Start Date End Date Ruddy Cooper MD [address] [place] [address] PCP - General 02/16/02 Sid Storm MD [address] [place] [address] Physician Radiation Oncology 02/21/20 Vlad Velasquez MD [address] [place] [address] Home Care Provider Orthopedics 08/08/20 Rigoberto Chase FILM AND VIDEO EDITOR.MANUAL LATHE OPERATOR [address] [place] [address] [phone] Referring Orthopedics 08/08/20 Bradford Love FILM AND VIDEO EDITOR.DEFLECTOR OPERATOR [address] [place] [address] Home Designer Internal Medicine 04/05/24 Elma Fuchs FILM AND VIDEO EDITOR.MANUAL LATHE OPERATOR [address] [place] [address] Home Designer Internal Medicine 04/05/24 Audit Lead Relationship Specialty Start Date End Date Ruddy Cooper MD [address] [place] [address] PCP - General 02/16/02 Sid Storm MD [address] [place] [address] Physician Radiation Oncology 02/21/20 Vlad Velasquez MD [address] [place] [address] Home Care Provider Orthopedics 08/08/20 Rigoberto Chase, FILM AND VIDEO EDITOR.MANUAL LATHE OPERATOR [address] [place] [address], [address] [place] [address] [phone] Referring Orthopedics 08/08/20 Bradford Love FILM AND VIDEO EDITOR.DEFLECTOR OPERATOR [address] [place] [address] Home Designer Internal Medicine 04/05/24 Elma Fuchs FILM AND VIDEO EDITOR.MANUAL LATHE OPERATOR [address] [place] [address] Home Designer Internal Medicine 04/05/24 Audit Lead Relationship Specialty Start Date End Date Ruddy Cooper MD [address] [place] [address] PCP - General 02/16/02 Sid Storm MD [address] [place] [address] Physician Radiation Oncology 02/21/20 Vlad Velasquez MD [address] [place] [address] Home Care Provider Orthopedics 08/08/20 Rigoberto Chase FILM AND VIDEO EDITOR.MANUAL LATHE OPERATOR [address] [address] Referring Orthopedics 08/08/20 Bradford Love FILM AND VIDEO EDITOR.DEFLECTOR OPERATOR [address] [place] [address] Home Designer Internal Medicine 04/05/24 Elma Fuchs FILM AND VIDEO EDITOR.MANUAL LATHE OPERATOR [address] [place] [address] Home Designer Internal Medicine 04/05/24 Audit Lead Relationship Specialty Start Date End Date Ruddy Cooper MD [address] [place] [address] PCP - General 02/16/02 Sid Storm MD [address] [place] [address] Physician Radiation Oncology 02/21/20 Vlad Velasquez MD [address] [address] Home Care Provider Orthopedics 08/08/20 Rigoberto Chase FILM AND VIDEO EDITOR.MANUAL LATHE OPERATOR [address] [place] [address] [phone] Referring Orthopedics 08/08/20 Bradford Love FILM AND VIDEO EDITOR.DEFLECTOR OPERATOR [address] [place] [address] Home Designer Internal Medicine 04/05/24 Elma Fuchs FILM AND VIDEO EDITOR.MANUAL LATHE OPERATOR [address] [place] [address] Home Designer Internal Medicine 07/20/24 Audit Lead Relationship Specialty Start Date End Date Ruddy Cooper MD [address] [place] [address] PCP - General 02/16/02 Sid Storm MD [address] [place] [address] Physician Radiation Oncology 02/21/20 Vlad Velasquez MD [address] [place] [address] Home Care Provider Orthopedics 08/08/20 Rigoberto Chase, FILM AND VIDEO EDITOR.MANUAL LATHE OPERATOR [address] [place] [address] Referring Orthopedics 08/08/20 Bradford Love FILM AND VIDEO EDITOR.DEFLECTOR OPERATOR [address] [place] [address] Home Designer Internal Medicine 04/05/24 Elma Fuchs FILM AND VIDEO EDITOR.MANUAL LATHE OPERATOR [address] [place] [address] Home Designer Internal Medicine 07/20/24 Audit Lead Relationship Specialty Start Date End Date Ruddy Cooper MD [address] [place] [address] PCP - General 02/16/02 Sid Storm MD [address] [place] [address] Physician Radiation Oncology 02/21/20 Vlad Velasquez MD [address] [place] [address] Home Care Provider Orthopedics 08/08/20 Rigoberto Chase FILM AND VIDEO EDITOR.MANUAL LATHE OPERATOR [address] [place] [address], [address] [place] [address] Referring Orthopedics 08/08/20 Bradford Love FILM AND VIDEO EDITOR.DEFLECTOR OPERATOR [address] [place] [address] Home Designer Internal Medicine 04/05/24 Elma Fuchs FILM AND VIDEO EDITOR.MANUAL LATHE OPERATOR [address] [place] [address] Home Designer Internal Medicine 07/20/24 Audit Lead Relationship Specialty Start Date End Date Ruddy Cooper MD [address] [place] [address] PCP - General 02/16/02 Sid Storm MD [address] [place] [address] Physician Radiation Oncology 02/21/20 Vlad Velasquez MD [address] [place] [address] Home Care Provider Orthopedics 08/08/20 Rigoberto Chase, FILM AND VIDEO EDITOR.MANUAL LATHE OPERATOR [address] [place] [address] [phone] Referring Orthopedics 08/08/20 Bradford Love FILM AND VIDEO EDITOR.DEFLECTOR OPERATOR [address] [place] [address] Home Designer Internal Medicine 04/05/24 Elma Fuchs FILM AND VIDEO EDITOR.MANUAL LATHE OPERATOR [address] [place] [address] Home Designer Internal Medicine 07/20/24 Audit Lead Relationship Specialty Start Date End Date Ruddy Cooper MD [address] [place] [address] PCP - General 02/16/02 Sid Storm MD [address] [place] [address] Physician Radiation Oncology 02/21/20 Vlad Velasquez MD [address] [place] [address] Home Care Provider Orthopedics 08/08/20 Rigoberto Chase, FILM AND VIDEO EDITOR.MANUAL LATHE OPERATOR [address] [place] [address]60 Referring Orthopedics 08/08/20 Bradford Love FILM AND VIDEO EDITOR.DEFLECTOR OPERATOR [address] [place] [address] Home Designer Internal Medicine 04/05/24 Elma Fuchs FILM AND VIDEO EDITOR.MANUAL LATHE OPERATOR [address] [place] [address] Home Designer Internal Medicine 07/20/24 Audit Lead Relationship Specialty Start Date End Date Ruddy Cooper MD [address] [place] [address] PCP - General 02/16/02 Sid Storm MD [address] [place] [address] Physician Radiation Oncology 02/21/20 Vlad Velasquez MD [address] [place] [address] Home Care Provider Orthopedics 08/08/20 Rigoberto Chase FILM AND VIDEO EDITOR.MANUAL LATHE OPERATOR [address] [facility], [address] [place] [address] Referring Orthopedics 08/08/20 Bradford Love FILM AND VIDEO EDITOR.DEFLECTOR OPERATOR [address] [place] [address] Home Designer Internal Medicine 04/05/24 Elma Fuchs APRN.MANUAL LATHE OPERATOR [address] [place] [address] Home Designer Internal Medicine 07/20/24 Audit Lead Relationship Specialty Start Date End Date Ruddy Cooper MD [address] [place] [address] PCP - General 02/16/02 Sid Storm MD [address] [address] Physician Radiation Oncology 02/21/20 Vlad Velasquez MD [address] [place] [address] Home Care Provider Orthopedics 08/08/20 Rigoberto Chase FILM AND VIDEO EDITOR.MANUAL LATHE OPERATOR [address] [place] [address] [phone] Referring Orthopedics 08/08/20 Bradford Love FILM AND VIDEO EDITOR.DEFLECTOR OPERATOR [address] [place] [address] Home Designer Internal Medicine 04/05/24 Elma Fuchs FILM AND VIDEO EDITOR.MANUAL LATHE OPERATOR [address] [place] [address] Home Designer Internal Medicine 07/20/24 Audit Lead Relationship Specialty Start Date End Date Ruddy Cooper MD [address] [place] [address] PCP - General 02/16/02 Sid Storm MD [address] [place] [address] Physician Radiation Oncology 02/21/20 Vlad Velasquez MD [address] [place] [address] Home Care Provider Orthopedics 08/08/20 Rigoberto Chase FILM AND VIDEO EDITOR.MANUAL LATHE OPERATOR [address] [place] [address] Referring Orthopedics 08/08/20 Bradford Love, FILM AND VIDEO EDITOR.DEFLECTOR OPERATOR [address] [place] [address] Home Designer Internal Medicine 04/05/24 Elma Fuchs FILM AND VIDEO EDITOR.MANUAL LATHE OPERATOR [address] [place] [address] Home Designer Internal Medicine 07/20/24 Audit Lead Relationship Specialty Start Date End Date Ruddy Cooper MD [address] [place] [address] PCP - General 02/16/02 Sid Storm MD [address] [place] [address] Physician Radiation Oncology 02/21/20 Vlad Velasquez MD [address] [place] [address] Home Care Provider Orthopedics 08/08/20 Rigoberto Chase FILM AND VIDEO EDITOR.MANUAL LATHE OPERATOR [address] [address] Referring Orthopedics 08/08/20 Bradford Love, FILM AND VIDEO EDITOR.DEFLECTOR OPERATOR [address] [place] [address] Home Designer Internal Medicine 04/05/24 Elma Fuchs FILM AND VIDEO EDITOR.MANUAL LATHE OPERATOR [address] [place] [address] Home Designer Internal Medicine 07/20/24 Audit Lead Relationship Specialty Start Date End Date Ruddy Cooper MD [address] [place] [address] PCP - General 02/16/02 Sid Storm MD [address] [facility] [place] [address] Physician Radiation Oncology 02/21/20 Vlad Velasquez MD [address] [place] [address] Home Care Provider Orthopedics 08/08/20 Rigoberto Chase FILM AND VIDEO EDITOR.MANUAL LATHE OPERATOR [address] [place] [address] [phone] Referring Orthopedics 08/08/20 Bradford Love FILM AND VIDEO EDITOR.DEFLECTOR OPERATOR [address] [place] [address] Home Designer Internal Medicine 04/05/24 Elma Fuchs FILM AND VIDEO EDITOR.MANUAL LATHE OPERATOR [address] [place] [address] Home Designer Internal Medicine 07/20/24 Audit Lead Relationship Specialty Start Date End Date Ruddy Cooper MD [address] [place] [address] PCP - General 02/16/02 Sid Storm MD [address] [place] [address] Physician Radiation Oncology 02/21/20 Vlad Velasquez MD [address] [facility] [place] [address] Home Care Provider Orthopedics 08/08/20 Rigoberto Chase FILM AND VIDEO EDITOR.MANUAL LATHE OPERATOR [address] [place] [address] Referring Orthopedics 08/08/20 Bradford Love APRN.DEFLECTOR OPERATOR [address] [place] [address] Home Designer Internal Medicine 04/05/24 Elma Fuchs APRN.MANUAL LATHE OPERATOR [address] [place] [address] Home Designer Internal Medicine 04/05/24 07/16/24 Elma Fuchs APRN.MANUAL LATHE OPERATOR [address] [place] [address] [facility] Internal Medicine 07/20/24 Audit Lead Relationship Specialty Start Date End Date Ruddy Cooper MD [address] [place] [address] PCP - General 02/16/02 Sid Storm MD [address] [place] [address] Physician Radiation Oncology 02/21/20 Vlad Velasquez MD [address] [place] [address] Home Care Provider Orthopedics 08/08/20 Rigoberto Chase APRN.MANUAL LATHE OPERATOR [address] [place] [address] Referring Orthopedics 08/08/20 Bradford Love APRN.DEFLECTOR OPERATOR [address] [place] [address] Home Designer Internal Medicine 04/05/24 Elma Fuchs APRN.MANUAL LATHE OPERATOR [address] [place] [address] Home Designer Internal Medicine 07/20/24 Lamar De Leon RN [address] [place], [place] [id number] Primary Care [facility]aker Internal Medicine 09/01/24 Audit Lead Relationship Specialty Start Date End Date Ruddy Cooper MD [address] [place] [address] PCP - General 02/16/02 Sid Storm MD [address] [place], [place] 956361 Physician Radiation Oncology 02/21/20 Vlad Velasquez MD [address] [place] [address] Home Care Provider Orthopedics 08/08/20 Rigoberto Chase, FILM AND VIDEO EDITOR.MANUAL LATHE OPERATOR [address] [phone] Referring Orthopedics 08/08/20 Bradford Love FILM AND VIDEO EDITOR.DEFLECTOR OPERATOR [address] [place] [address] Home Designer Internal Medicine 04/05/24 Elma Fuchs, FILM AND VIDEO EDITOR.MANUAL LATHE OPERATOR [address] [place] [address] Home Designer Internal Medicine 07/20/24 Lamar De Leon RN [address] [place] [address] Primary Care Debeaker Internal Medicine 09/01/24 Audit Lead Relationship Specialty Start Date End Date Ruddy Copoer MD [address] [place] [address] PCP - General 02/16/02 Sid Storm MD [address] [place], [place] 395571 Physician Radiation Oncology 02/21/20 Vlda Velasquez MD [address] [place] [address] Home Care Provider Orthopedics 08/08/20 Rigoberto Chase, FILM AND VIDEO EDITOR.MANUAL LATHE OPERATOR [address] [place] [address] Referring Orthopedics 08/08/20 Bradford Love FILM AND VIDEO EDITOR.DEFLECTOR OPERATOR [address] [place], [place] 470321 Home Designer Internal Medicine 04/05/24 Elma Fuchs, FILM AND VIDEO EDITOR.MANUAL LATHE OPERATOR [address] [place] [address] Home Designer Internal Medicine 07/20/24 Lamar De Leon, RN [address] [place] [address] Primary Care Debeaker Internal Medicine 09/01/24 Audit Lead Relationship Specialty Start Date End Date Ruddy Cooper MD [address] [place] [address] PCP - General 02/16/02 Sid Storm MD [address] [place] [address] Physician Radiation Oncology 02/21/20 Vlad Velasquez MD [address] [place] [address] Home Care Provider Orthopedics 08/08/20 Rigoberto Chase FILM AND VIDEO EDITOR.MANUAL LATHE OPERATOR [address] [place] [address] Referring Orthopedics 08/08/20 Bradford oLve, SHAHID.DEFLECTOR OPERATOR [address] [place] [address] Home Designer Internal Medicine 04/05/24 Elma Fuchs FILM AND VIDEO EDITOR.MANUAL LATHE OPERATOR [address] [place] [address] Home Designer Internal Medicine 07/20/24 Lamar De Leon, RN [address] [place] [address] Primary Care Debeaker Internal Medicine 09/01/24 Audit Lead Relationship Specialty Start Date End Date Ruddy Cooper MD [address] [place] [address] PCP - General 02/16/02 Sid Storm MD [address] [place] [address] Physician Radiation Oncology 02/21/20 Vlad Velasquez MD [address] [place] [address] Home Care Provider Orthopedics 08/08/20 Rigoberto Chase, SHAHID.MANUAL LATHE OPERATOR [address] [place] [address] Referring Orthopedics 08/08/20 Bradford Love, SHAHID.DEFLECTOR OPERATOR [address] [place] [address] Home Designer Internal Medicine 04/05/24 Elma Fuchs APRN.MANUAL LATHE OPERATOR [address] [place] [address] Home Designer Internal Medicine 07/20/24 Lamar De Leon, RN [address] [place] [address] Primary Care Debeaker Internal Medicine 09/01/24 Team Status: Active Member Role Status Dates Dr. Ruddy Cooper MD Primary Care Provider Active Team Status: Inactive Member Role Status Dates Dr. Ruddy Cooper MD Primary Care Provider Active Start: August 25, 2024 End: August 30, 2024 Dr. Hermes Salas DO Emergency Provider Active Start: August 25, 2024 End: August 30, 2024 Dr. Isabel Michelle MD Admit Provider Active St art: August 25, 2024 End: August 30, 2024 Dr. Isabel Michelle MD Other Provider Active St art: August 25, 2024 End: August 30, 2024 Dr. Jose Mariee DO Attending Provider Active Start: August 25, 2024 End: August 30, 2024 Dr. Veto Lynne DO Other Provider Active Start: August 25, 2024 End: August 30, 2024 Team Status: Active Member Role Status Dates Dr. Ruddy Cooper MD Primary Care Provider Active Start: August 26, 2024 Dr. Hermes Salas DO Emergency Provider Active Start: August 26, 2024 Dr. Isabel Michelle MD Admit Provider Active St art: August 26, 2024 Dr. Isabel Michelle MD Other Provider Active St art: August 26, 2024 Dr. Veto Lynne DO Attending Provider Active Start: August 26, 2024 Dr. Veto Lynne DO Other Provider Active Start: August 26, 2024 Team Status: Active Member Role Status Dates Dr. Ruddy Cooper MD Primary Care Provider Active Start: August 27, 2024 Dr. Hermes Salas DO Emergency Provider Active Start: August 27, 2024 Dr. Isabel Michelle MD Admit Provider Active St art: August 27, 2024 Dr. Isabel Michelle MD Other Provider Active St art: August 27, 2024 Dr. Veto Lynne DO Attending Provider Active Start: August 27, 2024 Dr. Veto Mosteller , DO Other Provider Active Start: August 27, 2024 Team Status: Active Member Role Status Dates Dr. Ruddy Cooper MD Primary Care Provider Active Start: August 28, 2024 Dr. Hermes Salas , DO Emergency Provider Active Start: August 28, 2024 Dr. Isabel Michelle MD Admit Provider Active St art: August 28, 2024 Dr. Isabel Michelle MD Other Provider Active St art: August 28, 2024 Dr. Veto Lynne , Attending Provider Active Start: August 28, 2024 Dr. Veto Lynne , DO Other Provider Active Start: August 28, 2024 Team Status: Active Member Role Status Dates Dr. Ruddy Cooper MD Primary Care Provider Active Start: August 29, 2024 Dr. Hermes Salas , Emergency Provider Active Start: August 29, 2024 Dr. Isabel Michelle MD Admit Provider Active St art: August 29, 2024 Dr. Isabel Michelle MD Other Provider Active St art: August 29, 2024 Dr. Veto Lynne DO Attending Provider Active Start: August 29, 2024 Dr. Veto Lynne , DO Other Provider Active Start: August 29, 2024 Team Status: Active Member Role Status Dates Dr. Ruddy Cooper MD Primary Care Provider Active Start: August 30, 2024 Dr. Hermes Salas , Emergency Provider Active Start: August 30, 2024 Dr. Isabel Michelle MD Admit Provider Active St art: August 30, 2024 Dr. Isabel Michelle MD Other Provider Active St art: August 30, 2024 Dr. Jose Mariee , Attending Provider Active Start: August 30, 2024 Dr. Jose Mariee , DO Other Provider Active Star t: August 30, 2024 Dr. Veto Lynne DO Other Provider Active Start: August 30, 2024 Team Status: Inactive Member Role Status Dates Dr. Ruddy Cooper MD Primary Care Provider Active Start: September 08, 2024 End: September 09, 2024 Dr. Yossi Heredia MD Emergency Provider Active S tart: September 08, 2024 End: September 09, 2024 Audit Lead Relationship Specialty Start Date End Date Ruddy Cooper MD [address] [place] [address] PCP - General 02/16/02 Sid Storm MD [address] [place], [place] [id number] Physician Radiation Oncology 02/21/20 Vlad Velasquez MD [address] [place] [address] Home Care Provider Orthopedics 08/08/20 Rigoberto Chase, FILM AND VIDEO EDITOR.MANUAL LATHE OPERATOR [address] [facility], [address] [place] [id number] Referring Orthopedics 08/08/20 Elma Fuchs FILM AND VIDEO EDITOR.MANUAL LATHE OPERATOR [address] [place] [address] Home Designer Internal Medicine 07/20/24 Lamar De Leon, LAURITA [address] [place] [address] Primary Care Debeaker Internal Medicine 09/01/24 Bradford Love FILM AND VIDEO EDITOR.DEFLECTOR OPERATOR [address] [place] [address] Home Designer Internal Medicine 09/15/24 Audit Lead Relationship Specialty Start Date End Date Ruddy Cooper MD [address] [place] [address] PCP - General 02/16/02 Sid Storm MD [address] [place] [address] Physician Radiation Oncology 02/21/20 Vlad Velasquez MD [address] [facility] [place] [address] Home Care Provider Orthopedics 08/08/20 Rigoberto Chase, FILM AND VIDEO EDITOR.MANUAL LATHE OPERATOR [address] [facility], [address] [place] [id number] Referring Orthopedics 08/08/20 Elma Fuchs APRN.MANUAL LATHE OPERATOR [address] [place], [place] [address] Home Designer Internal Medicine 07/20/24 Bradford Love APRN.DEFLECTOR OPERATOR [address] [place], [place] [id number] Home Designer Internal Medicine 09/15/24 Goals (unrecognized section and content) Goals may be documented in a n alternate section FOR RECORDS PERTAINING TO PATIENTS WHO ARE OR HAVE BEEN ENROLLED IN A CHEMICAL DEPENDENCY/SUBSTANCEABUSE PROGRAM, SOME INFORMATION MAY BE OMITTED. This clinical summary was aggregated from multiple sources. Caution should be exercised in using it in the provision of clinical care. This summary normalizes information from multiple sources, and as a consequence, information in this document may materially change the coding, format and clinical context of patient data. In addition, data may be omitted in some cases. CLINICAL DECISIONS SHOULD BE BASED ON THE PRIMARY CLINICAL RECORDS. [employer] provides no warranty or guarantee of the accuracy or completeness of information in this document.
[2024-10-10 15:04] LABS: Anion Gap 11 (5-15); BUN 17 mg/dL (4-19); BUN/Creat Ratio 19.9 RATIO (10-20); Calcium,Total 9.1 mg/dL (7.6-11.0); Carbon Dioxide 22.2 mmol/L (21.0-32.0); Chloride 103 mmol/L (98-108); Creatinine, Serum 0.85 mg/dL (0.70-1.20); EST Glomerular Filtration Rate 70 (>60); Estimated Creatinine Clearance 50.87 ml/min (50-250); Glucose 194 mg/dL (70-99); Potassium 4.3 mmol/L (3.3-5.1); Sodium Level 136 mmol/L (133-145)
--- NOTE | 2024-10-10 15:05 | RAD_ITS ---
PROCEDURE: CHEST PA AND LATERAL 10/10/2024 REASON FOR EXAM: CONFUSION TECHNIQUE: CHEST PA AND LATERAL COMPARISON: CT chest, abdomen and pelvis 08/25/2024. FINDINGS: Hardware: None. Heart: The heart size is normal. Mediastinum: The mediastinal contour is stable. Lungs: No focal consolidation, pleural effusion or pneumothorax. Bones: Degenerative changes are identified within the thoracic spine. RAD/Chest PA and Lateral IMPRESSION: NO ACUTE FINDINGS. Reading Location: [id number]
[2024-10-10 15:18] LABS: Troponin T High Sensitivity 15 ng/L (<=14)
[2024-10-10 15:25] LABS: Lactic Acid 2.6 mmol/L (0.0-2.0)
[2024-10-10 15:34] VITALS: BP 134/83; PULSE 89; RESP 17; TEMP 37; O2SAT 99
[2024-10-10 15:38] LABS: Mucous, Urine 0 SEEN /hpf (<or=2+); Red Blood Cells-Urine 0 SEEN /hpf (0-5)
[2024-10-10 15:39] LABS: Color, Urine Yellow (Yellow); Glucose, Dipstick Normal (Normal); Ketone-Dipstick Negative (Negative); Leukocyte Esterase-Dipstick 100 /ul (Negative); Nitrite-Dipstick Positive (Negative); Occult Blood-Urine Negative /ul (Negative); Protein-Dipstick 15 mg/dl (Negative); Specific Gravity, Urine 1.015 (1.002-1.030); Urine Bilirubin Dipstick Negative (Negative); Urine Clarity Cloudy (Clear); Urine Urobilinogen Normal (Normal)
[2024-10-10 15:55] LABS: Amorphous Sediment 3+; Bacteria 4+ /hpf (None Seen); Coarse Granular Cast 0-5 SEEN /lpf (0-5 /lpf); Squamous Epithelial Cells - UA 0-5 SEEN /hpf (5-10); White Blood Cells 5-10 SEEN /hpf (0-5)
[2024-10-10 16:00] VITALS: BP 118/80; PULSE 84; RESP 17; TEMP 37; O2SAT 96
[2024-10-10 16:02] LABS: Absolute Lymphocyte Count 1.47 X10^3/uL (0.83-4.51); Absolute Neutrophil Count 3.9 X10^3/uL (2.0-7.7); Basophil# 0.05 X10^3/uL; Basophil% 0.8 % (0-1); Eosinophil# 0.24 X10^3/uL; Eosinophils% 3.8 % (0-5); Hematocrit 39.8 % (37-47); Hemoglobin 13.2 g/dL (12.0-15.0); Lymphocyte # 1.47 X10^3/ul (0.83-4.51); Lymphocyte % 23.5 % (19-41); Mean Corp Hgb Conc 33.2 g/dL (32-36); Mean Corpuscular Hgb 30.5 pg (27.0-32.0); Mean Corpuscular Volume 91.9 fL (81-99); Mean Platelet Vol. 8.3 fl (6.2-12.0); Monocyte# 0.58 X10^3/uL; Monocyte% 9.3 % (0-10); NRBC Flagged by Analyzer 0 % (0-5); Neutrophil # 3.89 X10^3/uL (2.7-7.7); Neutrophil % 62.3 % (47-70); Platelet Count 323 K/mm3 (150-450); RBC Distribution Width SD 40.5 fl (35.1-43.9); Red Blood Count 4.33 M/mm3 (4.2-5.4); White Blood Count 6.3 K/mm3 (4.4-11.0)
[2024-10-10] MEDS: 0.9% Normal Saline (1000mL) 1,000 ML 1000 ML IV (16:24)
[2024-10-10] MEDS: Ceftriaxone 2 GM in 0.9% Normal Saline (50mL MB+) 50 ML IV (16:37)
--- NOTE | 2024-10-10 16:40 | PCM.HP.STD ---
HPI - General General Date of Admission: 10/10/24 HPI Narrative QUINCY KRAUSE, is a 79 F who presents to the hospital with confusion. Her daughter called the ambulance because she was talking to her on the phone and felt she was giving inappropriate responses and seemed confused. She states that she spoke to her daughter yesterday not today. She is not a great historian because she thinks is 1924 and she cannot give the duration of her symptoms however she says that she has been feeling off for a little bit and in the ER was found to have normal vital signs and fairly normal lab work, her lactic acid was elevated 2.6 but she does not have a leukocytosis, and she remains afebrile, brain CT and chest x-ray are unremarkable. Urine analysis demonstrates positive nitrites with leukocyte esterase of 104+ urine bacteria. Her previous culture in July grew a pansensitive Proteus and she was given a dose of Rocephin in the emergency room. [facility] Medical History Orthostatic hypotension Hoarseness History of stress test Anxiety Depression Migraines Normochromic normocytic anemia Diabetes mellitus type 2 in nonobese Hyponatremia Obstructive hydrocephalus IVH (intraventricular hemorrhage) Infiltrating ductal carcinoma of left breast HTN (hypertension) Brain aneurysm SAH (subarachnoid hemorrhage) Walking difficulty due to ankle and foot Hammer toe of right foot Tibialis posterior tendinopathy Posterior tibial tendinitis of right lower extremity Brain aneurysm GERD (gastroesophageal reflux disease) Osteoarthritis HLD (hyperlipidemia) Anxiety and depression HTN (hypertension) Home Medications ?Medication ?Instructions ?Recorded ?Last Taken ?Type aspirin 81 mg tablet 81 mg PO DAILY heart health 02/02/21 10/09/24 History letrozole 2.5 mg tablet 2.5 mg PO DAILY 08/25/24 10/10/24 History metformin 500 mg tablet 500 mg PO DAILY diabetes mellitus 08/25/24 Unknown History nortriptyline 50 mg capsule 150 mg PO QHS 08/25/24 10/09/24 History quetiapine 25 mg tablet 25 mg PO QHS #30 tabs 08/30/24 Unknown Rx meclizine 25 mg chewable tablet 25 mg PO TID PRN dizziness #10 tabs 09/09/24 Unknown Rx (Antivert) losartan 25 mg tablet 25 mg PO DAILY 10/10/24 10/10/24 History Allergy/AdvReac Type Severity Reaction Status Date / Time codeine AdvReac Nausea Verified 09/08/24 22:11 fluoxetine HCl (From Prozac) AdvReac shivers Verified 09/08/24 22:11 morphine AdvReac Nausea Verified 09/08/24 22:11 Family History Mother Breast cancer Hypertension Alzheimers disease Aunt Breast cancer Father CAD (coronary artery disease) Sister Alzheimers disease Other Bleeding disorder Surgical History History of appendectomy S/P coil embolization of cerebral aneurysm History of total knee arthroplasty Hx of craniotomy Cataract extraction status H/O laser iridotomy History of hysterectomy S/P breast lumpectomy S/P coil embolization of cerebral aneurysm Social History household members: none Smoking Status: Never smoker alcohol intake: never substance use type: does not use ROS Constitutional Constitutional: Denies chills, fatigue, fever(s) or malaise Eyes Eyes: Denies blurry vision ENT HEENT: Denies headache(s) or nasal discharge Cardiovascular Cardiovascular: Denies chest pain, dyspnea on exertion or syncope Respiratory/Chest Respiratory/Chest: Denies cough, shortness of breath at rest or shortness of breath with exertion Gastrointestinal Gastrointestinal: Denies constipation, diarrhea, nausea or vomiting Genitourinary Genitourinary: Denies dysuria Neurologic Neurologic: Reports confusion; Denies focal weakness, numbness or tremor(s) Psychiatric Psychiatric: Denies anxiety or depression Vital Signs Vital Signs Vital Signs: 10/10/24 14:03 10/10/24 15:34 10/10/24 16:00 Temperature 98.9 F 98.6 F 98.6 F Temperature Source Oral Oral Oral Pulse Rate 96 89 84 Respiratory Rate 21 H 17 17 Blood Pressure 117/76 134/83 H 118/80 Blood Pressure Mean 89 100 92 Pulse Ox 97 99 96 Oxygen Delivery Method Room Air Room Air Room Air Weight Weight: 152 lb 5.431 oz Body Mass Index (BMI) 26.9 Physical Exam Narrative General: Alert, Oriented x2, Cooperative, No apparent distress HEENT: Atraumatic, PERRLA, EOMI, Normocephalic Oral: Moist Mucosa Neck: Supple, No JVD Lungs: Diminished, Normal air movement, No rhonchi, No wheeze, No rales Cardiovascular: Regular rate, Regular Rhythm, Normal S1, Normal S2, No murmurs Abdomen: Soft, Non Tender, Non-Distended, No Hepato-splenomegaly Extremities: Nonpitting edema, Capillary Refill Less than 3 Seconds Skin: No rashes, No breakdown Musculoskeletal: No Tenderness to Palpation of Joints or Extremities Neurological: No focal neurological deficits, moves all extremities, sensation intact Psych/Mental Status: Normal Affect, Appropriate Results Lab / Micro Data 10/10/24 14:22 10/10/24 14:22 Labs: Laboratory Results - last 24 hr 10/10/24 14:22: WBC 6.3, RBC 4.33, Hgb 13.2, Hct 39.8, MCV 91.9, MCH 30.5, MCHC 33.2, RDW Std Deviation 40.5, RDW Coeff of Meño 12.0, Plt Count 323, MPV 8.3, Immature Gran % (Auto) 0.300, Neut % (Auto) 62.3, Lymph % (Auto) 23.5, Hidalgo % (Auto) 9.3, Eos % (Auto) 3.8, Baso % (Auto) 0.8, Absolute Neuts (auto) 3.9, Absolute Lymphs (auto) 1.47, Nucleated RBC % 0, Sodium 136, Potassium 4.3, Chloride 103, Carbon Dioxide 22.2, Anion Gap 11, BUN 17, Creatinine 0.85, Estim Creat Clear Calc 50.87, Est GFR (MDRD) Non-Af 70, BUN/Creatinine Ratio 19.9, Glucose 194 H, Lactic Acid 2.6 H*, Calcium 9.1, Troponin T High Sens 15 H 10/10/24 15:30: Urine Color Yellow, Urine Clarity Cloudy, Urine pH 7.0, Ur Specific Hammond 1.015, Urine Protein 15 H, Urine Glucose (UA) Normal, Urine Ketones Negative, Urine Occult Blood Negative, Urine Nitrite Positive H, Urine Bilirubin Negative, Urine Urobilinogen Normal, Ur Leukocyte Esterase 100 H, Urine RBC 0 SEEN, Urine WBC 5-10 SEEN, Ur Squamous Epith Cells 0-5 SEEN, Amorphous Sediment 3+, Urine Bacteria 4+, Coarse Granular Casts 0-5 SEEN, Urine Mucus 0 SEEN Micro: Microbiology 10/10/24 15:20 Mucosa - Nose SARS-CoV-2, Influenza & RSV (PCR) - Final Imaging Radiology Impression Brain CT 10/10/24 14:21 IMPRESSION: No acute intracranial finding. Stable postoperative changes as described. Reading Location: [facility] Chest X-Ray 10/10/24 15:05 IMPRESSION: NO ACUTE FINDINGS. Reading Location: [facility] Assessment & Plan Assessment/Plan (1) Urinary tract infection: PLAN: Plan 1. Metabolic encephalopathy secondary to UTI ? Continue with Rocephin as her previous cultures were Proteus and are sensitive ? Continue with gentle IV fluids ? Urine culture is pending ? She is not septic 2. Essential HTN ? Blood pressures are stable ? Can resume her home losartan ? Will monitor make adjustments as necessary 3. DM2 ? Will hold her home medications ? Will monitor and make adjustments as necessary ? Sliding-scale insulin ? Accu-Cheks ACHS 4. She is on nortriptyline and possibly Seroquel unclear why at the moment 5. 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 can resume if family brings in as it is nonformulary DVT: Lovenox 75 minutes was spent on direct patient care, including documentation as well as chart review and collaboration with colleagues Charges/Coding Visit Charges Inpatient E&M: 40529 Init Hosp L3
[2024-10-10 16:45] LABS: Troponin T High Sens 2 HR 15 ng/L (<=14)
[2024-10-10 17:00] VITALS: BP 122/71; PULSE 87; RESP 19; TEMP 37; O2SAT 96
--- OUTSIDE RECORDS SUMMARY | 2024-10-10 17:30 | XMS RPT_ITS | CCD ---
Author Organization [facility] Care Team Providers Care Plodding Operator Name Role Phone Ruddy Cooper MD Primary Care Provider Emeterio TAVERA MD, Sid Unavailable Vlad Velasquez MD Unavailable Unavailable Grater APRON WORKER.FRENCH TRANSLATOR, Rigoberto Unavailable Marco Antonio KELSEY, Jaimee Unavailable Ruddy Cooper MD Primary Care Provider Emeterio TAVERA MD, Sid Unavailable Vlad Velasquez MD Unavailable Unavailable Grater APRON WORKER.FRENCH TRANSLATOR, Rigoberto Unavailable Marco Antonio PT, Jaimee Unavailable Emeterio TAVERA, Sid Unavailable Ruddy Cooper MD Primary Care Provider Love APRON WORKER.EDGE CUTTING MACHINE OPERATOR, Bradford Unavailable Shila APRON WORKER.FRENCH TRANSLATOR, Elma Unavailable Shila APRON WORKER.FRENCH TRANSLATOR, Elma Geno Unavailable Shila APRON WORKER.FRENCH TRANSLATOR, Elma Unavailable Shila APRON WORKER.FRENCH TRANSLATOR, Elma Unavailable Shila APRON WORKER.FRENCH TRANSLATOR, Elma Unavailable Moises RN, Lamar Unavailable Allison TAVERA, Dr. Ruddy Bess Primary Care Provider Dr. Hermes Salas DO Emergency Provider Dr. Isabel Michelle MD Admit Provider Viviana TAVERA, Dr. Isabel Johnson Other Provider Dr. Jose Mariee DO Attending Provider Dr. Veto Lynne DO Other Provider Dr. Veto Lynne DO Attending Provider Dr. Jose Mariee DO Other Provider Yan TAVERA, Dr. Sy Emergency Provider Talampas, Ruddy D Primary Care Unavailable Veto [...] Admitting Unavailable Veto Lynne Consulting Unavailable Love APRON WORKER.EDGE CUTTING MACHINE OPERATOR, Bradford Unavailable [phone] LOVE, BRADFORD Referring Unavailable TALAMPAS, RUDDY D Primary Care Unavailable LOVE, BRADFORD Referring Unavailable TALAMPAS, RUDDY D Primary Care Unavailable O'CASPER, CHARLEEN Attending Unavailable LOVE, BRADFORD Referring Unavailable TALAMPAS, RUDDY D Primary Care Unavailable O'CASPER, CHARLEEN Attending Unavailable LOVE, BRADFORD Referring Unavailable TALAMPAS, RUDDY D Primary Care Unavailable O'CASPER, CHARLEEN Attending Unavailable LOVE, BARDFORD Referring Unavailable TALAMPAS, RUDDY D Primary Care Unavailable O'CASPER, CHARLEEN Attending Unavailable LOVE, BRADFORD Referring Unavailable TALAMPAS, RUDDY D Primary Care Unavailable LOVE, BRADFORD Referring Unavailable TALAMPAS, RUDDY D Primary Care Unavailable O'CASPER, CHARLEEN Attending Unavailable O'CASPER, CHARLEEN Attending Unavailable LOVE, BRADFORD Referring Unavailable TALAMPAS, RUDDY D Primary Care Unavailable O'CASPER, CAHRLEEN Attending Unavailable LOVE, BRADFORD Referring Unavailable TALAMPAS, [...] sources) Codeine Drug Allergy 06-06-2004 GI Upset [facility] Serotonin Reuptake Inhibitors (SSRIs) (2 sources) FLUoxetine Drug Allergy 12-26-2004 Intolerance [facility] (20 sources) Codeine; Translations: [CODEINE] Drug Allergy 06-06-2004 GI Upset [facility] (20 sources) FLUoxetine; Translations: [FLUOXETINE] Drug Allergy 12-26-2004 Intolerance [facility] Work Phone: (20 sources) Morphine; Translations: [MORPHINE] Drug Allergy 06-06-2004 GI Upset [facility] (3 sources) FLUoxetine; Translations: [fluoxetine HCl] Drug Allergy 05-14-2019 [facility] (1 source) Codeine Drug Allergy 09-08-2024 [facility] (1 source) Morphine Drug Allergy 09-08-2024 [facility] Medications Current Medications Medication Drug [...] 400 mcg by mout h once daily. Lncq-Tumkn-Tq1-Dha-Ep a-Fish-St (Glucosamine Chondroitin Plus) 695-516-36-54 mg Capsule (2 sources) Start: 02-02-2021 take 1 capsule by mouth once daily Srpz-Owjji-Aa6-Dha-Ep a-Fish-St (Glucosamine Chondroitin Plus) 482-924-27-54 mg Capsule Active 1 CAP PO DAILY February 02, 2021 1:29pm Start: 02-02-2021 End: 08-25-2024 Odrf-Pazej-Ne8-Maz-Wyv-Eofw- St (Glucosamine Chondroitin Plus) 033-408-42-54 mg Capsule Discontinued 1 NMA PO DAILY [...] on above: Take [address] [facility] daily at bedtime. Tumeric (2 sources) Start: [...] rinse mouth after use. Disp: one bottle ibxq-wjbap-pc4-dha-e pa-fish-st (GLUCOSAMINE CHONDROITIN PLUS) 202-260-84-54 mg cap (20 sources) Start: 02-14-20 End: 12-23-19 24 take 1 capsule by mouth once daily oulo-ojasq-ra8-dha-e pa-fish-st (GLUCOSAMINE CHONDROITIN PLUS) 103-915-14-54 mg cap Take 1 capsule by mouth once daily. 02/13/2021 12/23/2023 Discontinued (Course of therapy completed) Start: 02-13-2021 take 1 capsule by mouth once daily zdst-yxsbj-ey3-hse-xdg-yubh-st (GLUCOSAM INE CHONDROITIN PLUS) 183-640-89-54 mg cap Take 1 capsule by mouth once daily. 02/13/2021 Active Start: 02-13-2021 take 1 capsule by mouth once daily lmdj-ruinr-uo0-rvu-poi-ncuc-st (GLUCOSAM INE CHONDROITIN PLUS) 982-821-10-54 mg cap Take 1 capsule by mouth once daily. 0 02/13/2021 Active Comment on above: Take [address] [facility] once daily. GLUC/CHND/OM3/DHA/E PA/FISH/STR (GLUCOSAMINE CHONDROITIN PLUS [...] Comment on above: [facility]. MEDICATION, NON-DATABASE (2 sources) [...] Take by mouth. 11/01/2020 Discontinued vitamin a 43735 unt oral capsule (20 sources) Vitamin A [...] 09/08/2023 Discontinued take [address] [facility] once daily vitamin b complex capsule Take [...] Other aftercare (2 sources) Prevention status; Translations: [pressing machine tender (current) use of aromatase inhibitors] Episodic Other aftercare (5 sources) Patient encounter status; Translations: [Other chair (current) drug therapy] Episodic Other aftercare (1 source) Long-term current use of drug therapy; Translations: [Other chair (current) drug therapy] 02-26-2024 Episodic Other aftercare (1 source) shelter (current) use of aromatase inhibitors; Translations: [shelter (current) use of aromatase inhibitors] Onset: 5 [...] 10-21-2014 Episodic Other aftercare (1 source) Other chair (current) drug therapy; Translations: [Encounter for long-term [...] Auto (Unsp spec) [#/Vol] 1.90 10*3/uL 0.83-4.51 [facility] Absolute neutrophil countOrd ered By: Yossi Heredia on 09-08-2024 Neutrophils (Bld) [#/Vol] 3.6 10*3/uL 2.0-7.7 [facility] Anion gap in Serum or Plasma Ordered By: Yossi Heredia on 09-08-2024 Anion gap [Moles/Vol] 13 mmol/L 5- [facility] Automated lymphocyte count a s percentage of total leukocytesOrdered By: Yossi Heredia on 09-08-2024 Lymphocytes/100 WBC Auto (Unsp spec) 29.8 % [facility] BUN/creatinine ratioOrdered By: Yossi Heredia on 09-08-2024 Urea nitrogen/Creatinine [Mass ratio] 22.1 mg/mg High 02-14 [facility] Basic Metabolic Profile (BMP )on 09-08-2024 BUN/CRE 22.1 RATIO High 02-14 [facility] Comment on above: Performed By: #### L 500.2500, L100.0100 ####[facility] [address] [place], [address] Calcium [Mass/Vol] 9.4 mg/dL Normal 7.6-11.0 [facility] Comment on above: Performed By: #### L 500.2500, L100.0100 ####[facility] [address] [place], [address] Chloride [Moles/Vol] 105 mmol/L Normal 98-108 [facility] Comment on above: Performed By: #### L 500.2500, L100.0100 ####[facility] [address] [place], [address] CO2 [Moles/Vol] 20.0 mmol/L Low 21.0-32.0 [facility] Comment on above: Performed By: #### L 500.2500, L100.0100 ####[facility] [address] [place], [address] Creatinine [Mass/Vol] 0.88 mg/dL Normal 0.70-1.20 [facility] Comment on above: Performed By: #### L 500.2500, L100.0100 ####[facility] [address] [place], [address] ECRCL 48.64 ml/min Low 50-250 [facility] Comment on above: Performed By: #### L 500.2500, L100.0100 ####[facility] [address] [place], [address] GAP 13 Normal 5-15 [facility] Comment on above: Performed By: #### L 500.2500, L100.0100 ####[facility] [address] [place], [address] GFR/1.73 sq M.predicted among non-blacks MDRD (S/P/Bld) [Vol rate/Area] 67 mL/min/{1.73_m2} Normal >60 [facility] Comment on above: Result Comment: mL/m in/1.73m2 CKD-EPI Creatinine Equation (2020) Performed By: #### L 500.2500, L100.0100 ####[facility] [address] [place], [address] Glucose [Mass/Vol] 119 mg/dL High 70-99 [facility] Comment on above: Performed By: #### L 500.2500, L100.0100 ####[facility] [address] [place], [address] Potassium [Moles/Vol] 4.6 mmol/L Normal 3.3-5.1 [facility] Comment on above: Result Comment: Hemo lysis present, Results??could be affected. ?? Performed By: #### L 500.2500, L100.0100 ####[facility] [address] [place], [address] Sodium [Moles/Vol] 138 mmol/L Normal 133-145 [facility] Comment on above: Performed By: #### L 500.2500, L100.0100 ####[facility] [address] [place], [address] Urea nitrogen [Mass/Vol] 20 mg/dL High 4-19 [facility] Comment on above: Performed By: #### L 500.2500, L100.0100 ####[facility] [address] [place], [address] Basophil percentageOrdered B y: Yossi Heredia on 09-08-2024 Basophils/100 WBC (Bld) 1.1 % High 0-1 [facility] CBC W/Diff, Automatedon 08-26 Absolute Lymph 1.90 X10 3/uL Normal 0.83-4.51 [facility] Comment on above: Performed By: #### L 500.2500, L100.0100 ####[facility] [address] [place], [address] Absolute Neut 3.6 X10 3/uL Normal 2.0-7.7 [facility] Comment on above: Performed By: #### L 500.2500, L100.0100 ####[facility] [address] [place], [address] Basophils/100 WBC (Bld) 1.1 % High 0-1 [facility] Comment on above: Performed By: #### L 500.2500, L100.0100 ####[facility] [address] [place], [address] Eosinophils/100 WBC (Bld) 5.0 % Normal 0-5 [facility] Comment on above: Performed By: #### L 500.2500, L100.0100 ####[facility] [address] [place], [address] Erythrocyte distribution width (RBC) [Ratio] 12.4 % Normal 11.6-14.6 [facility] Comment on above: Performed By: #### L 500.2500, L100.0100 ####[facility] [address] [place], [address] Hematocrit (Bld) [Volume fraction] 39.3 % Normal 37-47 [facility] Comment on above: Performed By: #### L 500.2500, L100.0100 ####[facility] [address] [place], [address] Hemoglobin (Bld) [Mass/Vol] 13.0 g/dL Normal 12.0-15.0 [facility] Comment on above: Performed By: #### L 500.2500, L100.0100 ####[facility] [address] [place], [address] IG% 0.300 Normal 0.0-0.9 [facility] Comment on above: Result Comment: IG% - Immature Granulocytes (promyelocytes, myelocytes and metamyelocytes) > 1% indicates that a LEFT SHIFT is Present. Performed By: #### L 500.2500, L100.0100 ####[facility] [address] [place], [address] Lymphocytes/100 WBC (Bld) 29.8 % Normal 19-41 [facility] Comment on above: Performed By: #### L 500.2500, L100.0100 ####[facility] [address] [place], [address] MCH (RBC) [Entitic mass] 30.3 pg Normal 27.0-32.0 [facility] Comment on above: Performed By: #### L 500.2500, L100.0100 ####[facility] [address] [place], [address] MCHC (RBC) [Mass/Vol] 33.1 g/dL Normal 32-36 [facility] Comment on above: Performed By: #### L 500.2500, L100.0100 ####[facility] [address] [place], [address] MCV (RBC) [Entitic vol] 91.6 fL Normal 81-99 [facility] Comment on above: Performed By: #### L 500.2500, L100.0100 ####[facility] [address] [place], [address] Monocytes/100 WBC (Bld) 7.8 % Normal 0-10 [facility] Comment on above: Performed By: #### L 500.2500, L100.0100 ####[facility] [address] [place], [address] Neutrophils/100 WBC (Bld) 56.0 % Normal 47-70 [facility] Comment on above: Performed By: #### L 500.2500, L100.0100 ####[facility] [address] [place], [address] Nucleated RBC (Bld) [#/Vol] 0 10*3/uL Normal 0-5 [facility] Comment on above: Performed By: #### L 500.2500, L100.0100 ####[facility] [address] [place], [address] Platelet mean volume (Bld) [Entitic vol] 8.8 fL Normal 6.2-12.0 [facility] Comment on above: Performed By: #### L 500.2500, L100.0100 ####[facility] [address] [place], [address] Platelets (Bld) [#/Vol] 347 10*3/uL Normal 150-450 [facility] Comment on above: Performed By: #### L 500.2500, L100.0100 ####[facility] [address] [place], [address] RBC (Bld) [#/Vol] 4.29 10*6/uL Normal 4.2-5.4 [facility] Comment on above: Performed By: #### L 500.2500, L100.0100 ####[facility] [address] [place], [address] RDW SD 41.1 fl Normal 35.1-43.9 [facility] Comment on above: Performed By: #### L 500.2500, L100.0100 ####[facility] [address] [place], [address] WBC (Bld) [#/Vol] 6.4 10*3/uL Normal 4.4-11.0 [facility] Comment on above: Performed By: #### L 500.2500, L100.0100 ####[facility] [address] [place], [address] Carbon dioxide, total [Moles /volume] in Central venous bloodOrdered By: Yossi Heredia on 09-08-2024 CO2 [Moles/Vol] 20.0 mmol/L Low 21.0-32.0 [facility] Chloride assayOrdered By: Elder Heredia on 09-08-2024 Chloride [Moles/Vol] 105 mmol/L 98-108 [facility] Emergency Department Summary on 09-08-2024 Emergency Department Summary [facility] Medical Records Department [address] [place] [address] Emergency Department Summary 09/08/24 MR#: [id number] Acct: [id number] Name: JUDI KRAUSE Rep #: [id number] : 1945 79 From: Yossi Heredia MD [...] symptoms: Yes Recent Illness/Hospitalizatio n: Yes PFSH [facility] Medical History Orthostatic hypotension Hoarseness History [...] lymphadenopathy. Lungs (more content not included)... Normal [facility] Eosinophil percentageOrdered By: Yossi Heredia on 09-08-2024 Eosinophils/100 WBC (Bld) 5.0 % 0-5 [facility] Erythrocyte distribution wid th ratioOrdered By: Yossi Heredia on 09-08-2024 Erythrocyte distribution width (RBC) [Ratio] 12.4 % 11.6-14.6 [facility] Erythrocyte distribution wid th standard deviationOrdered By: Yossi Heredia on 09-08-2024 Erythrocyte distribution width (RBC) [Ratio] 41.1 fl 35.1-43.9 [facility] Glomerular filtration rate ( GFR) estimation/1.73 sq m using serum, plasma, or whole bOrdered By: Yossi Heredia on 09-08-2024 GFR/1.73 sq M.predicted among non-blacks MDRD (S/P/Bld) [Vol rate/Area] 67 mL/min/{1.73_m2} >60 [facility] Comment on above: mL/min/1.73m2 CKD-EP I Creatinine Equation (2020) Hematocrit Auto (Bld) [Volum e fraction]Ordered By: Yossi Heredia on 09-08-2024 Hematocrit (Bld) [Volume fraction] 39.3 % 37-47 [facility] Hemoglobin measurementOrdere d By: Yossi Heredia on 09-08-2024 Hemoglobin (Bld) [Mass/Vol] 13.0 g/dL 12.0-15.0 [facility] Immature granulocytes/100 WB C Auto (Bld)Ordered By: Yossi Heredia on 09-08-2024 Immature granulocytes/100 WBC (Bld) 0.300 % 0.0-0.9 [facility] Comment on above: IG% - Immature Granu locytes (promyelocytes, myelocytes and metamyelocytes) > 1% indicates that a LEFT SHIFT is Present. MCV (mean corpuscular volume ) determinationOrdered By: Yossi Heredia on 09-08-2024 MCV (RBC) [Entitic vol] 91.6 fL 81-99 [facility] Mean corpuscular hemoglobin (MCH) determinationOrdered By: Yossi Heredia on 09-08-2024 MCH (RBC) [Entitic mass] 30.3 pg 27.0-32.0 [facility] Mean corpuscular hemoglobin concentration (MCHC) determinationOrdered By: Yossi Heredia on 09-08-2024 MCHC (RBC) [Mass/Vol] 33.1 g/dL 32-36 [facility] Mean platelet volume determi nationOrdered By: Yossi Heredia on 09-08-2024 Platelet mean volume (Bld) [Entitic vol] 8.8 fL 6.2-12.0 [facility] Monocyte percentageOrdered B y: Yossi Heredia on 09-08-2024 Monocytes/100 WBC (Bld) 7.8 % 0-10 [facility] Neutrophil percentageOrdered By: Yossi Heredia on 09-08-2024 Neutrophils/100 WBC (Bld) 56.0 % 47-70 [facility] Nucleated red blood cell per centageOrdered By: Yossi Heredia on 09-08-2024 Nucleated RBC/100 WBC (Bld) [Ratio] 0 % 0-5 [facility] Platelet countOrdered By: Elder Heredia on 09-08-2024 Platelets (Bld) [#/Vol] 347 10*3/uL 150-450 [facility] Potassium measurement (mass/ volume)Ordered By: Yossi Heredia on 09-08-2024 Potassium (Unsp spec) [Mass/Vol] 4.6 mmol/L 3.3-5.1 [facility] Comment on above: Hemolysis present, R esults could be affected. RBC Auto (Bld) [#/Vol]Ordere d By: Yossi Heredia on 09-08-2024 RBC (Bld) [#/Vol] 4.29 10*6/uL 4.2-5.4 [facility] Serum creatinine measurement (mass/volume)Ordered By: Yossi Heredia on 09-08-2024 Creatinine [Mass/Vol] 0.88 mg/dL 0.70-1.20 [facility] Serum glucose measurement (m ass/volume)Ordered By: Yossi Heredia on 09-08-2024 Glucose [Mass/Vol] 119 mg/dL High 70-99 [facility] Serum or plasma calcium rodríguez urement (mass/volume)Ordered By: Yossi Heredia on 09-08-2024 Calcium [Mass/Vol] 9.4 mg/dL 7.6-11.0 [facility] Serum or plasma urea nitroge n measurement (mass/volume)Ordered By: Yossi Heredia on 09-08-2024 Urea nitrogen [Mass/Vol] 20 mg/dL High - [facility] Sodium levelOrdered By: Yossi Heredia on 09-08-2024 Sodium [Moles/Vol] 138 mmol/L 133-145 [facility] White blood cell (WBC) count Ordered By: Yossi Heredia on 09-08-2024 WBC (Bld) [#/Vol] 6.4 10*3/uL 4.4-11.0 [facility] Anion gap in Serum or Plasma Ordered By: Veto Lynne on 08-30-2024 Anion gap [Moles/Vol] 12 mmol/L - [facility] BUN/creatinine ratioOrdered By: Veto Lynne on 08-30-2024 Urea nitrogen/Creatinine [Mass ratio] 25.5 mg/mg High 02-14 [facility] Basic Metabolic Profile (BMP )on 08-30-2024 BUN/CRE 25.5 RATIO High 10-20 [facility] Comment on above: Performed By: #### L 501.080 #### [facility] [address] [place], [address] Calcium [Mass/Vol] 8.9 mg/dL Normal 7.6-11.0 [facility] Comment on above: Performed By: #### L 501.080 #### [facility] [address] [place], [address] Chloride [Moles/Vol] 107 mmol/L Normal 98-108 [facility] Comment on above: Performed By: #### L 501.080 #### [facility] [address] [place], [address] CO2 [Moles/Vol] 19.7 mmol/L Low 21.0-32.0 [facility] Comment on above: Performed By: #### L 501.080 #### [facility] [address] [place], [address] Creatinine [Mass/Vol] 0.87 mg/dL Normal 0.70-1.20 [facility] Comment on above: Performed By: #### L 501.080 #### [facility] [address] [place], [address] ECRCL 49.17 ml/min Low 50-250 [facility] Comment on above: Performed By: #### L 501.080 #### [facility] [address] [place], [address] GAP 12 Normal 5-15 [facility] Comment on above: Performed By: #### L 501.080 #### [facility] [address] [place], [address] GFR/1.73 sq M.predicted among non-blacks MDRD (S/P/Bld) [Vol rate/Area] 68 mL/min/{1.73_m2} Normal >60 [facility] Comment on above: Result Comment: mL/m in/1.73m2 CKD-EPI Creatinine Equation (2020) Performed By: #### L 501.080 #### [facility] [address] [place], [address] Glucose [Mass/Vol] 132 mg/dL High 70-99 [facility] Comment on above: Performed By: #### L 501.080 #### [facility] [address] [place], [address] Potassium [Moles/Vol] 4.2 mmol/L Normal 3.3-5.1 [facility] Comment on above: Performed By: #### L 501.080 #### [facility] [address] [place], [address] Sodium [Moles/Vol] 138 mmol/L Normal 133-145 [facility] Comment on above: Performed By: #### L 501.080 #### [facility] [address] [place], [address] Urea nitrogen [Mass/Vol] 22 mg/dL High 4-19 [facility] Comment on above: Performed By: #### L 501.080 #### [facility] [address] [place], [address] CBC-Complete Blood Cnt No Di ffon 08-30-2024 Erythrocyte distribution width (RBC) [Ratio] 12.6 % Normal 11.6-14.6 [facility] Comment on above: Performed By: #### L 501.080 #### [facility] [address] [place], [address] Hematocrit (Bld) [Volume fraction] 41.9 % Normal 37-47 [facility] Comment on above: Performed By: #### L 501.080 #### [facility] [address] [place], [address] Hemoglobin (Bld) [Mass/Vol] 13.8 g/dL Normal 12.0-15.0 [facility] Comment on above: Performed By: #### L 501.080 #### [facility] [address] [place], [address] MCH (RBC) [Entitic mass] 30.3 pg Normal 27.0-32.0 [facility] Comment on above: Performed By: #### L 501.080 #### [facility] [address] [place], [address] MCHC (RBC) [Mass/Vol] 32.9 g/dL Normal 32-36 [facility] Comment on above: Performed By: #### L 501.080 #### [facility] [address] [place], [address] MCV (RBC) [Entitic vol] 91.9 fL Normal 81-99 [facility] Comment on above: Performed By: #### L 501.080 #### [facility] [address] [place], [address] Platelet mean volume (Bld) [Entitic vol] 8.2 fL Normal 6.2-12.0 [facility] Comment on above: Performed By: #### L 501.080 #### [facility] [address] [place], [address] Platelets (Bld) [#/Vol] 325 10*3/uL Normal 150-450 [facility] Comment on above: Performed By: #### L 501.080 #### [facility] [address] [place], [address] RBC (Bld) [#/Vol] 4.56 10*6/uL Normal 4.2-5.4 [facility] Comment on above: Performed By: #### L 501.080 #### [facility] [address] [place], [address] RDW SD 42.5 fl Normal 35.1-43.9 [facility] Comment on above: Performed By: #### L 501.080 #### [facility] [address] [place], [place], [address] WBC (Bld) [#/Vol] 6.6 10*3/uL Normal 4.4-11.0 [facility] Comment on above: Performed By: #### L 501.080 #### [facility] [address] [place], [place], [address] Carbon dioxide, total [Moles /volume] in Central venous bloodOrdered By: Veto Lynne on 08-30-2024 CO2 [Moles/Vol] 19.7 mmol/L Low 21.0-32.0 [facility] Chloride assayOrdered By: Damion Lynne on 08-30-2024 Chloride [Moles/Vol] 107 mmol/L 98-108 [facility] Erythrocyte distribution wid th ratioOrdered By: Veto Lynne on 08-30-2024 Erythrocyte distribution width (RBC) [Ratio] 12.6 % 11.6-14.6 [facility] Erythrocyte distribution wid th standard deviationOrdered By: Veto Lynne on 08-30-2024 Erythrocyte distribution width (RBC) [Ratio] 42.5 fl 35.1-43.9 [facility] Glomerular filtration rate ( GFR) estimation/1.73 sq m using serum, plasma, or whole bOrdered By: Veto Lynne on 08-30-2024 GFR/1.73 sq M.predicted among non-blacks MDRD (S/P/Bld) [Vol rate/Area] 68 mL/min/{1.73_m2} >60 [facility] Comment on above: mL/min/1.73m2 CKD-EP I Creatinine Equation (2020) Hematocrit Auto (Bld) [Volum e fraction]Ordered By: Veto Lynne on 08-30-2024 Hematocrit (Bld) [Volume fraction] 41.9 % 37-47 [facility] Hemoglobin measurementOrdere d By: Veto Lynne on 08-30-2024 Hemoglobin (Bld) [Mass/Vol] 13.8 g/dL 12.0-15.0 [facility] MCV (mean corpuscular volume ) determinationOrdered By: Veto Lynne on 08-30-2024 MCV (RBC) [Entitic vol] 91.9 fL 81-99 [facility] Mean corpuscular hemoglobin (MCH) determinationOrdered By: Veto Lynne on 08-30-2024 MCH (RBC) [Entitic mass] 30.3 pg 27.0-32.0 [facility] Mean corpuscular hemoglobin concentration (MCHC) determinationOrdered By: Veto Lynne on 08-30-2024 MCHC (RBC) [Mass/Vol] 32.9 g/dL 32-36 [facility] Mean platelet volume determi nationOrdered By: Veto Lynne on 08-30-2024 Platelet mean volume (Bld) [Entitic vol] 8.2 fL 6.2-12.0 [facility] Platelet countOrdered By: Damion Lynne on 08-30-2024 Platelets (Bld) [#/Vol] 325 10*3/uL 150-450 [facility] Potassium measurement (mass/ volume)Ordered By: Veto Lynne on 08-30-2024 Potassium (Unsp spec) [Mass/Vol] 4.2 mmol/L 3.3-5.1 [facility] RBC Auto (Bld) [#/Vol]Ordere d By: Veto Lynne on 08-30-2024 RBC (Bld) [#/Vol] 4.56 10*6/uL 4.2-5.4 [facility] Serum creatinine measurement (mass/volume)Ordered By: Veto Lynne on 08-30-2024 Creatinine [Mass/Vol] 0.87 mg/dL 0.70-1.20 [facility] Serum glucose measurement (m ass/volume)Ordered By: Veto Lynne on 08-30-2024 Glucose [Mass/Vol] 132 mg/dL High 70-99 [facility] Serum or plasma calcium rodríguez urement (mass/volume)Ordered By: Veto Lynne on 08-30-2024 Calcium [Mass/Vol] 8.9 mg/dL 7.6-11.0 [facility] Serum or plasma urea nitroge n measurement (mass/volume)Ordered By: Veto Lynne on 08-30-2024 Urea nitrogen [Mass/Vol] 22 mg/dL High - [facility] Sodium levelOrdered By: Sarbjit Lynne on 08-30-2024 Sodium [Moles/Vol] 138 mmol/L 133-145 [facility] White blood cell (WBC) count Ordered By: Veto Lynne on 08-30-2024 WBC (Bld) [#/Vol] 6.6 10*3/uL 4.4-11.0 [facility] Basic Metabolic Profile (BMP )on 08-29-2024 BUN Normal 4-19 [facility] Comment on above: Result Comment: Canshruti elled via OM: MD Ordered Performed By: #### L 500.2500 ####[facility] [address] [place], [address] BUN/CRE Normal 10-20 [facility] Comment on above: Result Comment: Canshruti elled via OM: MD Ordered Performed By: #### L 500.2500 ####[facility] [address] [place], [address] Calcium Normal 7.6-11.0 [facility] Comment on above: Result Comment: Canshruti elled via OM: MD Ordered Performed By: #### L 500.2500 ####[facility] [address] [place], [address] CL Normal 98-108 [facility] Comment on above: Result Comment: Canshruti elled via OM: MD Ordered Performed By: #### L 500.2500 ####[facility] [address] [place], [address] CO2 Normal 21.0-32.0 [facility] Comment on above: Result Comment: Kalia elled via OM: MD Ordered Performed By: #### L 500.2500 ####[facility] [address] [place], [address] CREAT,SERUM Normal 0.70-1.20 [facility] Comment on above: Result Comment: Canc elled via OM: MD Ordered Performed By: #### L 500.2500 ####[facility] [address] [place], [address] eGFR Normal >60 [facility] Comment on above: Result Comment: Canc elled via OM: MD Ordered Performed By: #### L 500.2500 ####[facility] [address] [place], [address] GAP Normal 5-15 [facility] Comment on above: Result Comment: Canc elled via OM: MD Ordered Performed By: #### L 500.2500 ####[facility] [address] [place], [address] GLU Normal 70-99 [facility] Comment on above: Result Comment: Canc elled via OM: MD Ordered Performed By: #### L 500.2500 ####[facility] [address] [place], [address] Potassium Normal 3.3-5.1 [facility] Comment on above: Result Comment: Canc elled via OM: MD Ordered Performed By: #### L 500.2500 ####[facility] [address] [place], [address] Basic Metabolic Profile (BMP) Normal 133-145 [facility] Comment on above: Result Comment: Canc elled via OM: MD Ordered Performed By: #### L 500.2500 ####[facility] [address] [place], [address] Bedside Glucoseon 08-29-2024 FINGERSTICK GLU 132 mg/dL High 74-106 [facility] Comment on above: Result Comment: SAMANTA CHEEMA OF PATIENT CARE PER NURSING PROTOCOL Performed By: #### L 501.080 ####[facility] [address] [place], [address] FINGERSTICK GLU 131 mg/dL High 74-106 [facility] Comment on above: Result Comment: SAMANTA GEMENT OF PATIENT CARE PER NURSING PROTOCOL Performed By: #### L 501.1930 #### [facility] [address] [place], [address] FINGERSTICK GLU 120 mg/dL High 74-106 [facility] Comment on above: Result Comment: SAMANTA GEMENT OF PATIENT CARE PER NURSING PROTOCOL Performed By: #### L 501.080 #### [facility] [address] [place], [address] CBC-Complete Blood Cnt No Di ffon 08-29-2024 HCT Normal 37-47 [facility] Comment on above: Result Comment: Canc elled via OM: MD Ordered Performed By: #### L 501.080 #### [facility] [address] [place], [address] HGB Normal 12.0-15.0 [facility] Comment on above: Result Comment: Canc elled via OM: MD Ordered Performed By: #### L 501.080 #### [facility] [address] [place], [address] MCH Normal 27.0-32.0 [facility] Comment on above: Result Comment: Canc elled via OM: MD Ordered Performed By: #### L 501.080 #### [facility] [address] [place], [address] MCHC Normal 32-36 [facility] Comment on above: Result Comment: Canc elled via OM: MD Ordered Performed By: #### L 501.080 #### [facility] [address] [place], [address] MCV Normal 81-99 [facility] Comment on above: Result Comment: Canc elled via OM: MD Ordered Performed By: #### L 501.080 #### [facility] [address] [place], [address] PLT Normal 150-450 [facility] Comment on above: Result Comment: Canc elled via OM: MD Ordered Performed By: #### L 501.080 #### [facility] [address] [place], [address] RBC Normal 4.2-5.4 [facility] Comment on above: Result Comment: Canc elled via OM: MD Ordered Performed By: #### L 501.080 #### [facility] [address] [place], [address] RDW CV Normal 11.6-14.6 [facility] Comment on above: Result Comment: Canc elled via OM: MD Ordered Performed By: #### L 501.080 #### [facility] [address] [place], [address] RDW SD Normal 35.1-43.9 [facility] Comment on above: Result Comment: Canc elled via OM: MD Ordered Performed By: #### L 501.080 #### [facility] [address] [place], [address] WBC Normal 4.4-11.0 [facility] Comment on above: Result Comment: Canc elled via OM: MD Ordered Performed By: #### L 501.080 #### [facility] [address] [place], [address] [facility] deOrdered By: Veto Lynne on 08-29-2024 Glucose [Mass/Vol] 132 mg/dL High 74-106 [facility] Comment on above: MANAGEMENT OF PATIEN T CARE PER NURSING PROTOCOL Basic Metabolic Profile (BMP )on 08-28-2024 BUN/CRE 17.3 RATIO Normal 10-20 [facility] Comment on above: Performed By: #### L 501.080 #### [facility] [address] [place], [address] Calcium [Mass/Vol] 8.7 mg/dL Normal 7.6-11.0 [facility] Comment on above: Performed By: #### L 501.080 #### [facility] [address] [place], [address] Chloride [Moles/Vol] 109 mmol/L High 98-108 [facility] Comment on above: Performed By: #### L 501.080 #### [facility] [address] [place], [address] CO2 [Moles/Vol] 23.2 mmol/L Normal 21.0-32.0 [facility] Comment on above: Performed By: #### L 501.080 #### [facility] [address] [place], [address] Creatinine [Mass/Vol] 0.87 mg/dL Normal 0.70-1.20 [facility] Comment on above: Performed By: #### L 501.080 #### [facility] [address] [place], [address] ECRCL 48.93 ml/min Low 50-250 [facility] Comment on above: Performed By: #### L 501.080 #### [facility] [address] [place], [address] GAP 8 Normal 5-15 [facility] Comment on above: Performed By: #### L 501.080 #### [facility] [address] [place], [address] GFR/1.73 sq M.predicted among non-blacks MDRD (S/P/Bld) [Vol rate/Area] 68 mL/min/{1.73_m2} Normal >60 [facility] Comment on above: Result Comment: mL/m in/1.73m2 CKD-EPI Creatinine Equation (2020) Performed By: #### L 501.080 #### [facility] [address] [place], [address] Glucose [Mass/Vol] 138 mg/dL High 70-99 [facility] Comment on above: Performed By: #### L 501.080 #### [facility] [address] [place], [address] Potassium [Moles/Vol] 4.8 mmol/L Normal 3.3-5.1 [facility] Comment on above: Performed By: #### L 501.080 #### [facility] [address] [place], [address] Sodium [Moles/Vol] 140 mmol/L Normal 133-145 [facility] Comment on above: Performed By: #### L 501.080 #### [facility] [address] [place], [address] Urea nitrogen [Mass/Vol] 15 mg/dL Normal 4-19 [facility] Comment on above: Performed By: #### L 501.080 #### [facility] [address] [place], [address] Bedside Glucoseon 08-28-2024 FINGERSTICK GLU 142 mg/dL High 74-106 [facility] Comment on above: Result Comment: SAMANTA GEMENT OF PATIENT CARE PER NURSING PROTOCOL Performed By: #### L 501.080 #### [facility] [address] [place], [address] FINGERSTICK GLU 151 mg/dL High 74-106 [facility] Comment on above: Result Comment: SAMANTA GEMENT OF PATIENT CARE PER NURSING PROTOCOL Performed By: #### L 501.080 #### [facility] [address] [place], [address] FINGERSTICK GLU 106 mg/dL Normal 74-106 [facility] Comment on above: Result Comment: SAMANTA GEMENT OF PATIENT CARE PER NURSING PROTOCOL Performed By: #### L 501.080 #### [facility] [address] [place], [address] FINGERSTICK GLU 121 mg/dL High 74-106 [facility] Comment on above: Result Comment: SAMANTA CHEEMA OF PATIENT CARE PER NURSING PROTOCOL Performed By: #### L 501.080 #### [facility] [address] [place], [address] CBC-Complete Blood Cnt No Di ffon 08-28-2024 Erythrocyte distribution width (RBC) [Ratio] 12.5 % Normal 11.6-14.6 [facility] Comment on above: Performed By: #### L 100.0500 ####[facility] [address] [place], [address] Hematocrit (Bld) [Volume fraction] 37.9 % Normal 37-47 [facility] Comment on above: Performed By: #### L 100.0500 ####[facility] [address] [place], [address] Hemoglobin (Bld) [Mass/Vol] 12.6 g/dL Normal 12.0-15.0 [facility] Comment on above: Performed By: #### L 100.0500 ####[facility] [address] [place], [address] MCH (RBC) [Entitic mass] 30.7 pg Normal 27.0-32.0 [facility] Comment on above: Performed By: #### L 100.0500 ####[facility] [address] [place], [address] MCHC (RBC) [Mass/Vol] 33.2 g/dL Normal 32-36 [facility] Comment on above: Performed By: #### L 100.0500 ####[facility] [address] [place], [address] MCV (RBC) [Entitic vol] 92.4 fL Normal 81-99 [facility] Comment on above: Performed By: #### L 100.0500 ####[facility] [address] [place], [address] Platelet mean volume (Bld) [Entitic vol] 8.2 fL Normal 6.2-12.0 [facility] Comment on above: Performed By: #### L 100.0500 ####[facility] [address] [place], [address] Platelets (Bld) [#/Vol] 274 10*3/uL Normal 150-450 [facility] Comment on above: Performed By: #### L 100.0500 ####[facility] [address] [place], [address] RBC (Bld) [#/Vol] 4.10 10*6/uL Low 4.2-5.4 [facility] Comment on above: Performed By: #### L 100.0500 ####[facility] [address] [place], [address] RDW SD 42.5 fl Normal 35.1-43.9 [facility] Comment on above: Performed By: #### L 100.0500 ####[facility] [address] [place], [address] WBC (Bld) [#/Vol] 5.8 10*3/uL Normal 4.4-11.0 [facility] Comment on above: Performed By: #### L 100.0500 ####[facility] [address] [place], [address] Urine Cultureon 08-28-2024 URC Proteus mirabilis [place] Count 25,000-50,000 Proteus mirabilis: REACTION Ampicillin Islt [place] <=2 Ampicillin+Sulbac [place]lt [place] <=2 S Cefepime [place] <=0.12 S cefTRIAXone [place] <=0.25 S Ciprofloxacin [place] <=0.06 S Gentamicin [place] <=1 S levoFLOXacin [place] <=0.12 S Meropenem Is[place] 0.5 S Nitrofurantoin [place] R Pip+Tazo [place] <=4 S TMP SMX Islt [place] <=20 S Normal [facility] Comment on above: Performed By: #### M 100.2200 ####[facility] [address] [place], [address] Basic Metabolic Profile (BMP )on 08-27-2024 BUN Normal 4-19 [facility] Comment on above: Result Comment: Canc elled via OM: MD Ordered Performed By: #### L 501.080 #### [facility] [address] [place], [address] BUN/CRE Normal 10-20 [facility] Comment on above: Result Comment: Canc elled via OM: MD Ordered Performed By: #### L 501.080 #### [facility] [address] [place], [address] Calcium Normal 7.6-11.0 [facility] Comment on above: Result Comment: Canc elled via OM: MD Ordered Performed By: #### L 501.080 #### [facility] [address] [place], [address] CL Normal 98-108 [facility] Comment on above: Result Comment: Canc elled via OM: MD Ordered Performed By: #### L 501.080 #### [facility] [address] [place], [address] CO2 Normal 21.0-32.0 [facility] Comment on above: Result Comment: Canc elled via OM: MD Ordered Performed By: #### L 501.080 #### [facility] [address] [place], [address] CREAT,SERUM Normal 0.70-1.20 [facility] Comment on above: Result Comment: Canc elled via OM: MD Ordered Performed By: #### L 501.080 #### [facility] [address] [place], [address] eGFR Normal >60 [facility] Comment on above: Result Comment: Canc elled via OM: MD Ordered Performed By: #### L 501.080 #### [facility] [address] [place], [address] GAP Normal 5-15 [facility] Comment on above: Result Comment: Canc elled via OM: MD Ordered Performed By: #### L 501.080 #### [facility] [address] [place], [address] GLU Normal 70-99 [facility] Comment on above: Result Comment: Canc elled via OM: MD Ordered Performed By: #### L 501.080 #### [facility] [address] [place], [address] Potassium Normal 3.3-5.1 [facility] Comment on above: Result Comment: Canc elled via OM: MD Ordered Performed By: #### L 501.080 #### [facility] [address] [place], [address] Basic Metabolic Profile (BMP) Normal 133-145 [facility] Comment on above: Result Comment: Canc elled via OM: MD Ordered Performed By: #### L 501.080 #### [facility] [address] [place], [address] Bedside Glucoseon 08-27-2024 FINGERSTICK GLU 119 mg/dL High 74-106 [facility] Comment on above: Result Comment: SAMANTA GEMENT OF PATIENT CARE PER NURSING PROTOCOL Performed By: #### L 501.080 ####[facility] [address] [place], [address] FINGERSTICK GLU 168 mg/dL High 74-106 [facility] Comment on above: Result Comment: SAMANTA GEMENT OF PATIENT CARE PER NURSING PROTOCOL Performed By: #### L 501.080 ####[facility] [address] [place], [address] FINGERSTICK GLU 138 mg/dL High 74-106 [facility] Comment on above: Result Comment: SAMANTA GEMENT OF PATIENT CARE PER NURSING PROTOCOL Performed By: #### L 501.080 #### [facility] [address] [place], [address] FINGERSTICK GLU 125 mg/dL High 74-106 [facility] Comment on above: Result Comment: SAMANTA GEMENT OF PATIENT CARE PER NURSING PROTOCOL Performed By: #### L 501.080 ####[facility] [address] [place], [address] CBC-Complete Blood Cnt No Di ffon 08-27-2024 HCT Normal 37-47 [facility] Comment on above: Result Comment: Canc elled via OM: MD Ordered Performed By: #### L 100.0500 ####[facility] [address] [place], [address] HGB Normal 12.0-15.0 [facility] Comment on above: Result Comment: Canc elled via OM: MD Ordered Performed By: #### L 100.0500 ####[facility] [address] [place], [address] MCH Normal 27.0-32.0 [facility] Comment on above: Result Comment: Canc elled via OM: MD Ordered Performed By: #### L 100.0500 ####[facility] [address] [place], [address] MCHC Normal 32-36 [facility] Comment on above: Result Comment: Canc elled via OM: MD Ordered Performed By: #### L 100.0500 ####[facility] [address] [place], [address] MCV Normal 81-99 [facility] Comment on above: Result Comment: Canc elled via OM: MD Ordered Performed By: #### L 100.0500 ####[facility] [address] [place], [address] PLT Normal 150-450 [facility] Comment on above: Result Comment: Canc elled via OM: MD Ordered Performed By: #### L 100.0500 ####[facility] [address] [place], [address] RBC Normal 4.2-5.4 [facility] Comment on above: Result Comment: Canc elled via OM: MD Ordered Performed By: #### L 100.0500 ####[facility] [address] [place], [address] RDW CV Normal 11.6-14.6 [facility] Comment on above: Result Comment: Canc elled via OM: MD Ordered Performed By: #### L 100.0500 ####[facility] [address] [place], [address] RDW SD Normal 35.1-43.9 [facility] Comment on above: Result Comment: Canc elled via OM: MD Ordered Performed By: #### L 100.0500 ####[facility] [address] [place], [address] WBC Normal 4.4-11.0 [facility] Comment on above: Result Comment: Canc elled via OM: MD Ordered Performed By: #### L 100.0500 ####[facility] [address] [place], [address] Absolute lymphocyte countOrd ered By: Isabel Michelle on 08-26-2024 Lymphocytes Auto (Unsp spec) [#/Vol] 1.46 10*3/uL 0.83-4.51 [facility] Absolute neutrophil countOrd ered By: Isabel Michelle on 08-26-2024 Neutrophils (Bld) [#/Vol] 3.6 10*3/uL 2.0-7.7 [facility] Automated lymphocyte count a s percentage of total leukocytesOrdered By: White on 08-26-2024 Lymphocytes/100 WBC Auto (Unsp spec) 23.8 % 19-41 [facility] Basophil percentageOrdered B y: White on 08-26-2024 Basophils/100 WBC (Bld) 0.8 % 0-1 [facility] Bedside Glucoseon 08-26-2024 FINGERSTICK GLU 167 mg/dL High 74-106 [facility] Comment on above: Result Comment: SAMANTA GEMENT OF PATIENT CARE PER NURSING PROTOCOL Performed By: #### L 501.080 #### [facility] [address] [place], [address] FINGERSTICK GLU 116 mg/dL High [facility]106 [facility] Comment on above: Result Comment: SAMANTA GEMENT OF PATIENT CARE PER NURSING PROTOCOL Performed By: #### L 501.080 #### [facility] [address] [place], [address] FINGERSTICK GLU 145 mg/dL High [address] [place] [address] Comment on above: Result Comment: SAMANTA GEMENT OF PATIENT CARE PER NURSING PROTOCOL Performed By: #### L 501.080 #### [facility] [address] [place], [address] FINGERSTICK GLU 126 mg/dL High [address] [place] [address] Comment on above: Result Comment: SAMANTA GEMENT OF PATIENT CARE PER NURSING PROTOCOL Performed By: #### L 501.080 #### [facility] [address] [place], [address] Bilirubin, totalOrdered By: Isabel Viviana on 08-26-2024 Bilirubin [Mass/Vol] 0.34 mg/dL 0.00-1.30 [facility] CBC W/Diff, Automatedon Absolute Lymph 1.46 X10 3/uL Normal 0.83-4.51 [facility] Comment on above: Performed By: #### L 100.0100, L500.4050 ####[facility] [address] [place], [address] Absolute Neut 3.6 X10 3/uL Normal 2.0-7.7 [facility] Comment on above: Performed By: #### L 100.0100, L500.4050 ####[facility] [address] [place], [address] Basophils/100 WBC (Bld) 0.8 % Normal 0-1 [facility] Comment on above: Performed By: #### L 100.0100, L500.4050 ####[facility] [address] [place], [address] Eosinophils/100 WBC (Bld) 7.0 % High 0-5 [facility] Comment on above: Performed By: #### L 100.0100, L500.4050 ####[facility] [address] [place], [address] Erythrocyte distribution width (RBC) [Ratio] 12.5 % Normal 11.6-14.6 [facility] Comment on above: Performed By: #### L 100.0100, L500.4050 ####[facility] [address] [place], [address] Hematocrit (Bld) [Volume fraction] 34.6 % Low 37-47 [facility] Comment on above: Performed By: #### L 100.0100, L500.4050 ####[facility] [address] [place], [address] Hemoglobin (Bld) [Mass/Vol] 11.6 g/dL Low 12.0-15.0 [facility] Comment on above: Performed By: #### L 100.0100, L500.4050 ####[facility] [address] [place], [address] IG% 0.500 Normal 0.0-0.9 [facility] Comment on above: Result Comment: IG% - Immature Granulocytes (promyelocytes, myelocytes and metamyelocytes) > 1% indicates that a LEFT SHIFT is Present. Performed By: #### L 100.0100, L500.4050 ####[facility] [address] [place], [address] Lymphocytes/100 WBC (Bld) 23.8 % Normal 19-41 [facility] Comment on above: Performed By: #### L 100.0100, L500.4050 ####[facility] [address] [place], [address] MCH (RBC) [Entitic mass] 30.6 pg Normal 27.0-32.0 [facility] Comment on above: Performed By: #### L 100.0100, L500.4050 ####[facility] [address] [place], [address] MCHC (RBC) [Mass/Vol] 33.5 g/dL Normal 32-36 [facility] Comment on above: Performed By: #### L 100.0100, L500.4050 ####[facility] [address] [place], [address] MCV (RBC) [Entitic vol] 91.3 fL Normal 81-99 [facility] Comment on above: Performed By: #### L 100.0100, L500.4050 ####[facility] [address] [place], [address] Monocytes/100 WBC (Bld) 9.3 % Normal 0-10 [facility] Comment on above: Performed By: #### L 100.0100, L500.4050 ####[facility] [address] [place], [address] Neutrophils/100 WBC (Bld) 58.6 % Normal 47-70 [facility] Comment on above: Performed By: #### L 100.0100, L500.4050 ####[facility] [address] [place], [address] Nucleated RBC (Bld) [#/Vol] 0 10*3/uL Normal 0-5 [facility] Comment on above: Performed By: #### L 100.0100, L500.4050 ####[facility] [address] [place], [address] Platelet mean volume (Bld) [Entitic vol] 8.1 fL Normal 6.2-12.0 [facility] Comment on above: Performed By: #### L 100.0100, L500.4050 ####[facility] [address] [place], [address] Platelets (Bld) [#/Vol] 279 10*3/uL Normal 150-450 [facility] Comment on above: Performed By: #### L 100.0100, L500.4050 ####[facility] [address] [place], [address] RBC (Bld) [#/Vol] 3.79 10*6/uL Low 4.2-5.4 [facility] Comment on above: Performed By: #### L 100.0100, L500.4050 ####[facility] [address] [place], [address] RDW SD 41.5 fl Normal 35.1-43.9 [facility] Comment on above: Performed By: #### L 100.0100, L500.4050 ####[facility] [address] [place], [address] WBC (Bld) [#/Vol] 6.1 10*3/uL Normal 4.4-11.0 [facility] Comment on above: Performed By: #### L 100.0100, L500.4050 ####[facility] [address] [place], [address] CPK Total, Creatine Kinaseon 08-26-2024 CPK TOTAL 150 U/L Normal 24-195 [facility] Comment on above: Order Comment: *ADD ON- WG6/6/M N O* Performed By: #### L 501.080 #### [facility] [address] [place], [address] Comprehensive Metabolic Prof ilon 08-26-2024 Albumin [Mass/Vol] 3.2 g/dL Low 3.4-4.8 [facility] Comment on above: Performed By: #### L 100.0100, L500.4050 ####[facility] [address] [place], [address] Albumin/Globulin [Mass ratio] 1.3 {ratio} Normal 0.9-2.4 [facility] Comment on above: Performed By: #### L 100.0100, L500.4050 ####[facility] [address] [place], [address] ALK PHOS 38 U/L Normal 35-104 [facility] Comment on above: Performed By: #### L 100.0100, L500.4050 ####[facility] [address] [place], [address] ALT [Catalytic activity/Vol] 16 U/L Normal <=34 [facility] Comment on above: Performed By: #### L 100.0100, L500.4050 ####[facility] [address] [place], [address] AST [Catalytic activity/Vol] 27 U/L Normal <=31 [facility] Comment on above: Performed By: #### L 100.0100, L500.4050 ####[facility] [address] [place], [address] Bilirubin [Mass/Vol] 0.34 mg/dL Normal 0.00-1.30 [facility] Comment on above: Performed By: #### L 100.0100, L500.4050 ####[facility] [address] [place], [address] BUN/CRE 24.4 RATIO High 10-20 [facility] Comment on above: Performed By: #### L 100.0100, L500.4050 ####[facility] [address] [place], [address] Calcium [Mass/Vol] 8.4 mg/dL Normal 7.6-11.0 [facility] Comment on above: Performed By: #### L 100.0100, L500.4050 ####[facility] [address] [place], [address] Chloride [Moles/Vol] 106 mmol/L Normal 98-108 [facility] Comment on above: Performed By: #### L 100.0100, L500.4050 ####[facility] [address] [place], [address] CO2 [Moles/Vol] 20.8 mmol/L Low 21.0-32.0 [facility] Comment on above: Performed By: #### L 100.0100, L500.4050 ####[facility] [address] [place], [address] Creatinine [Mass/Vol] 1.00 mg/dL Normal 0.70-1.20 [facility] Comment on above: Performed By: #### L 100.0100, L500.4050 ####[facility] [address] [place], [address] ECRCL 42.72 ml/min Low 50-250 [facility] Comment on above: Performed By: #### L 100.0100, L500.4050 ####[facility] [address] [place], [address] GAP 10 Normal 5-15 [facility] Comment on above: Performed By: #### L 100.0100, L500.4050 ####[facility] [address] [place], [address] GFR/1.73 sq M.predicted among non-blacks MDRD (S/P/Bld) [Vol rate/Area] 58 mL/min/{1.73_m2} Low >60 [facility] Comment on above: Result Comment: mL/m in/1.73m2 CKD-EPI Creatinine Equation (2020) Performed By: #### L 100.0100, L500.4050 ####[facility] [address] [place], [address] Globulin (S) [Mass/Vol] 2.4 g/dL Normal 2.2-4.2 [facility] Comment on above: Performed By: #### L 100.0100, L500.4050 ####[facility] [address] [place], [address] Glucose [Mass/Vol] 116 mg/dL High 70-99 [facility] Comment on above: Performed By: #### L 100.0100, L500.4050 ####[facility] [address] [place], [address] Potassium [Moles/Vol] 3.9 mmol/L Normal 3.3-5.1 [facility] Comment on above: Performed By: #### L 100.0100, L500.4050 ####[facility] [address] [place], [address] Sodium [Moles/Vol] 137 mmol/L Normal 133-145 [facility] Comment on above: Performed By: #### L 100.0100, L500.4050 ####[facility] [address] [place], [address] T PROT 5.6 g/dL Low 5.9-8.4 [facility] Comment on above: Performed By: #### L 100.0100, L500.4050 ####[facility] [address] [place], [place], [address] Urea nitrogen [Mass/Vol] 24 mg/dL High 4-19 [facility] Comment on above: Performed By: #### L 100.0100, L500.4050 ####[facility] [address] [place], [place], [address] Eosinophil percentageOrdered By: Isabel Viviana on 08-26-2024 Eosinophils/100 WBC (Bld) 7.0 % High 0-5 [facility] Immature granulocytes/100 WB C Auto (Bld)Ordered By: on 08-26-2024 Immature granulocytes/100 WBC (Bld) 0.500 % 0.0-0.9 [facility] Comment on above: IG% - Immature Granu locytes (promyelocytes, myelocytes and metamyelocytes) > 1% indicates that a LEFT SHIFT is Present. Laboratory - Chemistry and C hemistry - challengeOrdered By: Isabel Viviana on 08-26-2024 AST [Catalytic activity/Vol] 27 U/L <32 [facility] Monocyte percentageOrdered B y: on 08-26-2024 Monocytes/100 WBC (Bld) 9.3 % 0-10 [facility] Neutrophil percentageOrdered By: 08-26-2024 Neutrophils/100 WBC (Bld) 58.6 % 47-70 [facility] Nucleated red blood cell per centageOrdered By: on 08-26-2024 Nucleated RBC/100 WBC (Bld) [Ratio] 0 % 0-5 [facility] Serum globulin measurementOr dered By: Viviana 08-26-2024 Globulin (S) [Mass/Vol] 2.4 g/dL 2.2-4.2 [facility] Serum or plasma alanine sanders otransferase (ALT) measurementOrdered By: Viviana 08-26-2024 ALT [Catalytic activity/Vol] 16 U/L <35 [facility] Serum or plasma albumin rodríguez urement (mass/volume)Ordered By: Isabel Viviana on 08-26-2024 Albumin [Mass/Vol] 3.2 g/dL Low 3.4-4.8 [facility] Serum or plasma albumin/glob ulin mass ratioOrdered By: Isabel Viviana on 08-26-2024 Albumin/Globulin [Mass ratio] 1.3 {ratio} 0.9-2.4 [facility] Serum or plasma alkaline justin sphatase measurementOrdered By: Isabel Viviana on 08-26-2024 ALP [Catalytic activity/Vol] 38 U/L 35-104 [facility] Total proteinOrdered By: Aut troy Michelle on 08-26-2024 Protein [Mass/Vol] 5.6 g/dL Low 5.9-8.4 [facility] 12 Lead EKGon 08-25-2024 12 Lead EKG [facility] Cardiovascular Services [address] [place] [address] 12 Lead EKG 08/25/24 2117 MR#: [id number] Acct: [id number] Name: JUDI KRAUSE Rep #: [id number] : 1945 79 From: Jone Fishman MD Attending Dr: Dr. Veto Lynne DO Status : ADM IN Ordering Dr: Hermes Salas DO Date: 08/25/24 Location: [facility] [place] Sex: F C Admitted: 08/25/24 Test Reason [...] normal ECG Confirmed by JONE FISHMAN MD ([id number]), manager editorial APURVA CAMEJO ([id number]) on 08/26/2024 1:29:01 PM Referred By: ES Confirmed By: JONE FISHMAN MD 08/26/24 1329 Date Jone Fishman MD CC: Dr. Veto Lynne DO; Dr. Ruddy Cooper MD; Dr. Hermes Salas DO Signed Normal [facility] Activated partial thrombopla stin time (aPTT) in platelet poor plasma by coagulation aOrdered By: Hermes Salas on 08-25-2024 aPTT Coag (PPP) [Time] 25.4 s 24.1-36.2 [facility] Basic Metabolic Profile (BMP )on 08-25-2024 BUN/CRE 23.0 RATIO High 10-20 [facility] Comment on above: Performed By: #### L 501.193 #### [facility] [address] [place], [address] Calcium [Mass/Vol] 9.9 mg/dL Normal 7.6-11.0 [facility] Comment on above: Performed By: #### L 501.1929 #### [facility] [address] [place], [address] Chloride [Moles/Vol] 101 mmol/L Normal 98-108 [facility] Comment on above: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 scree Swetardered By: Cchermelinda Provider on 01-07-2024 [facility] DBT Breast - bilateral scree suzy 01-06-2024 Radiology Study observation (narrative) [facility] THERAPY NTon 06-24-2024 THERAPY NT HNO ID: [id number] Author: CHARLEEN ROCHA PT Service: ? Author Type: Physical Therapist Type: Therapy (PT/OT/Speech/Resp) Filed: 10/20/2023 15:54 Note Text: Program_ID:[id number] Access Code: [email or web address] URL: [email or web address]/ Date: 10-20-2023 Prepared By: Charleen Rocha Program Notes Exercises - Seated Transversus Abdominis Bracing with PLB - 1 x daily - 7 x weekly - 4 sets - 10 reps Normal [facility] CNOVon 10-14-2023 CNOV Office Visit (UCWSTR ) JUDI KRAUSE ([id number]) 1945 F NFR Date Time Provider Department 10/14/23 12:15 PM [facility] During your visit today, we recorded the following information about you: Temperature Pulse Respiration Blood pressure 97.6 degrees 105/minute 18/minute 117/79 Weight 68 kg Ruiz Serrato APRN.FRENCH TRANSLATOR 10/14/2023 1:36 PM Signed Subjective HPI Nontoxic-appearing [...] Right OPEN TREATMENT,TRIMALLEOLAR ANKLE FRACTURE Right 05/29/2018 [facility] PICC LINE INSERT/CONSULT 01/23/2021 PICC [...] Take 81 mg by mouth once daily. ibed-crmtg-cm3-dha-epa -fish-st (GLUCOSAMINE CHONDROITIN PLUS) 536-017-19-54 mg cap Take 1 capsule by mouth [...] HENT: N (more content not included)... Normal [facility] No Panel Informationon 10-13 IMPRESSION: NO EVIDENCE OF ACUTE FRACTURE INVOLVING THE LEFT ANKLE OR FOOT. SIGNIFICANT SOFT TISSUE SWELLING. STABLE POSTOPERATIVE HARDWARE DESCRIBED. INCREASE IN EROSIVE FINDINGS INVOLVING THE PROXIMAL INTERPHALANGEAL JOINT OF THE SECOND AND THIRD DIGITS. DEGENERATIVE CHANGES ELSEWHERE, INVOLVING MULTIPLE INTERPHALANGEAL JOINTS, HAVE MILDLY PROGRESSED. FINDINGS MAY BE SECONDARY TO EROSIVE ARTHRITIS. INFECTION IS NOT EXCLUDED.. Radiology Special Procedure Tech: JOHNY Transcribe Date/Time: Oct 14 2023 1:15P Dictated by : ANTHONY NYE MD This examination was interpreted and the report reviewed and electronically signed by: ANTHONY NYE MD on Oct 14 2023 1:20PM [facility] DIVISION OF RADIOLOGY Radiology Study observation (narrative) [facility] No Panel InformationOrdered By: Ccf Provider on 10-14-2023 [facility] XR ANKLE 3V AP/LAT/OBL LTon 10-14-2023 [...] TO EROSIVE ARTHRITIS. INFECTION IS NOT EXCLUDED.. Radiology Special Procedure Tech: PSCElizabeth Transcribe Date/Time: Oct 14 2023 1:15P Dictated by : ANTHONY NYE MD This examination was interpreted and the report reviewed and electronically signed by: ANTHONY NYE MD on Oct 14 2023 1:20PM EST [id number] Normal [facility] XR Ankle - left AP and [...] of acute fracture. DIVISION OF RADIOLOGY Provider, [facility] - 10/14/2023 * * *Final Report* * [...] TO EROSIVE ARTHRITIS. INFECTION IS NOT EXCLUDED.. Radiology Special Procedure Tech: JOHNY Transcribe Date/Time: Oct 14 2023 1:15P Dictated by : ANTHONY NYE MD This examination was interpreted and the report reviewed and electronically signed by: ANTHONY NYE MD on Oct 14 2023 1:20PM EST [facility] XR FOOT 3V AP/LAT/OBL LTon 0 [...] TO EROSIVE ARTHRITIS. INFECTION IS NOT EXCLUDED.. Radiology Special Procedure Tech: JOHNY Transcribe Date/Time: Oct 14 2023 1:15P Dictated by : ANTHONY NYE MD This examination was interpreted and the report reviewed and electronically signed by: ANTHONY NYE MD on Oct 14 2023 1:20PM EST [id number] Normal [facility] XR Foot - left AP and Latera [...] of acute fracture. DIVISION OF RADIOLOGY Provider, [facility] - 10/14/2023 * * *Final Report* * [...] TO EROSIVE ARTHRITIS. INFECTION IS NOT EXCLUDED.. Radiology Special Procedure Tech: PSCB Transcribe Date/Time: Oct 14 2023 1:15P Dictated by : ANTHONY NYE MD This examination was interpreted and the report reviewed and electronically signed by: ANTHONY NYE MD on Oct 14 2023 1:20PM EST [facility] [id number] 09-29-2023 [id number] HNO ID: [id number] Author: CHARLEEN ROCHA PT Service: ? Author Type: Physical Therapist Type: [id number] Filed: 09/29/2023 15:16 Note Text: [facility] Physical Therapy Plan of Care Certification Patient Name: Judi Krause : 1945 CC #: [id number] Date: 09/29/2023 To: Bradford Love APRN.EDGE CUTTING MACHINE OPERATOR From Therapist: Charleen Rocha PT RE: [...] more repetitions to reflect decreased fall risk. [place] in home exercise program including cardiovascular exercise. Patient will demonstrate independent and proper use of assisstive device to allow for improved walking quality and safety therefore reducing the risk of falls. Patient Goals: amb in her neighborhood or at the [facility] with AD for 10-15 minutes Planned Interventions, Frequency, and Duration: Current Frequency: 2x/week Duration: 6 weeks Total Number of Visits Planned: 12 Planned Treatment Interventions: Gait Training (67330), Self-snf management (43389), Therapeutic activities (68694), Manual therapy (59167), Neuromuscular re-education (15348), Therapeutic exercise (76280) PLAN FOR NEXT VISIT: DGI and step ups Patient demonstrates good understanding of plan of care and treatment. The above goals and plan of care were discussed and agreed upon by patient/family. For further details regarding this patient refer to the Physical Therapy electronically documented visit dated 09/29/2023. Provider Attestation I have reviewed the treatment plan for Judi Krause, [facility]# [id number] for the period of 09/29/23 -- 11/03/23, established on 09/29/2023. Signature certifies the need for therapy services. Normal [facility] CNTHERAPYon 09-29-2023 CNTHERAPY OT/PT/Speech Visit (PTWS) JDUI KRAUSE ([id number]) 1945 F NFR Date Time Provider Department 09/29/23 2:00 PM CHARLEEN ROCHA PTWS Date Time Provider Department Center 09/29/2023 2:00 PM [id number]-ACHARLEEN ROCHA PTWS Lesly Urias Reason for Visit: PT Nolan [[id number]] Primary Visit Diagnosis:Gait difficulty [R26.9] Other Visit [...] 100 mcg by mouth once daily. - yxnu-dmwur-uo8-dha-epa -fish-st (GLUCOSAMINE CHONDROITIN PLUS) [id number] mg cap Take 1 capsule by mouth [...] Banks RN December 14, 2016 1:12 PM Tailor Apprentice: Therapy (PT/OT/Speech/Resp) ID: [id number] 09/29/2023 2:19 PM Author: CHARLEEN ROCHA Signed by CHARLEEN ROCHA PT on 09/29/2023 at 2:19 PM Document text: Program_ID:[id number] Access Code: [email or web address] URL: [email or web address] [employer]/ Date: 09-29-2023 Prepared By: Charleen Rocha Program [...] 4 sets - 10 reps -- Normal [facility] THERAPY NTon 09-29-2023 THERAPY NT HNO ID: [id number] Author: CHARLEEN ROCHA PT Service: ? Author Type: Physical Therapist Type: Therapy (PT/OT/Speech/Resp) Filed: 09/29/2023 14:19 Note Text: Program_ID:[id number] Access Code: [email or web address] URL: [email or web address] Date: 09-29-2023 Prepared By: Charleen Rocha Program [...] - 4 sets - 10 reps Normal [facility] MRA BRAIN WO/W IVCONon 02-27 [facility] DBT Breast - bilateral diagn ostic for implanton 01-03-2023 * * *Final Report* * * DATE OF EXAM: Jan 03 2023 1:17PM [facility] 0627 - [facility] DIAG W AVNI CHRISTOPHER / PROCEDURE REASON: multiple diagnoses * * * * Physician Interpretation * * * * RESULT: #[id number] - [facility] BREAST LTD RT #[id number] - [facility] DIAG W AVNI CHRISTOPHER BILATERAL DIGITAL DIAGNOSTIC [...] made to exams dated: 07/24/2022 mammogram - [facility], 11/29/2021 [facility] [...] in either breast. DIVISION OF RADIOLOGY Provider, [facility] - 01/03/2023 * * *Final Report* * * DATE OF EXAM: Jan 03 2023 1:17PM SSW 0627 - [facility] [place] WHITE / PROCEDURE REASON: multiple diagnoses * * * * Physician Interpretation * * * * RESULT: #[id number] - [facility] US BREAST LTD RT #[id number] - [facility] GOLDBERG CHRISTOPHER BILATERAL DIGITAL DIAGNOSTIC MAMMOGRAM [...] made to exams dated: 07/24/2022 mammogram - [facility], 11/[facility]21 [facility] and [facility] - [facility]. There are scattered fibroglandular elements in [...] made to exams dated: 07/24/2022 mammogram - [facility], 11/29/2021 [facility], and 11/28/2020 mammogram - [facility]. Real-time ultrasound of the right breast [...] Health, Family Medicine, and Medical/Surgical Oncology, the [facility] has carefully reviewed the data and [...] their providers when to stop screening mammograms. Tinsmith Apprentice(s): RT Tania(R)(M), [facility]; RT Miriam(R)(M), [facility] OVERALL STUDY BIRADS: 2 Benign finding Radiology Special Procedure Tech: Nate Transcribe Date/Time: Jan 03 2023 12:19P Dictated by: ENRIKE BETTS MD This examination was interpreted and the report reviewed and electronically signed by: ENRIKE BETTS MD on Jan 03 2023 2:33PM EST [facility] No Panel InformationOrdered By: Ccf Provider on 01-03-2023 [facility] No Panel Informationon 01-03 Radiology Study observation (narrative) [facility] US Breast - right limitedon 01-03-2023 * * *Final Report* * * DATE OF EXAM: Jan 03 2023 1:48PM [facility] 0594 - [facility] US BREAST LTD RT / PROCEDURE REASON: multiple diagnoses * * * * Physician Interpretation * * * * RESULT: #[id number] - [facility] US BREAST LTD RT #[id number] - [facility] DIAG W AVNI CHRISTOPHER BILATERAL DIGITAL DIAGNOSTIC [...] made to exams dated: 07/24/2022 mammogram - [facility], 11/[facility]2021 [facility], and [facility] [...] OF EXAM: Jan 03 2023 1:48PM [facility] 0594 - WILLIE US BREAST LTD RT / PROCEDURE REASON: multiple diagnoses * * * * Physician Interpretation * * * * RESULT: #[id number] - [place] US BREAST [facility] RT #[id number] - [facility] W AVNI CHRISTOPHER BILATERAL DIGITAL DIAGNOSTIC [...] made to exams dated: 07/24/2022 mammogram - [facility], 11/29/2021 mammogram - [facility] & Breast [place], and 11/28/2020 mammogram - [facility]. There are scattered fibroglandular elements in [...] made to exams dated: 07/24/2022 mammogram - [facility], 11/29/2021 mammogram - [facility] Breast [place], and 11/28/2020 mammogram - [facility]. Real-time ultrasound of the right breast [...] Health, Family Medicine, and Medical/Surgical Oncology, the [facility] has carefully reviewed the data and [...] their providers when to stop screening mammograms. Tinsmith Apprentice(s): Samaria Sierra RT(R)(M), [facility]; Apurva Kelley RT(R)(M), [facility] OVERALL STUDY BIRADS: 2 Benign finding Radiology Special Procedure Tech: Nate Transcribe Date/Time: Jan 03 2023 12:19P Dictated by: ENRIKE BETTS MD This examination was interpreted and the report reviewed and electronically signed by: ENRIKE BETTS MD on Jan 03 2023 2:33PM EST [facility] WILLIE DIAG W AVNI LEFTon 07-24 [facility] MRA BRAIN WO/W IVCONon 02-18 [facility] WILLIE SCREENING W TOMOon 11-29 [facility] CBC panel Auto (Bld)on 10-17 Erythrocyte distribution width (RBC) [Ratio] 12.8 % 11.5 - 15.0 % [facility] Hematocrit (Bld) [Volume fraction] 43.9 % 36.0 - 46.0 % [facility] Hemoglobin (Bld) [Mass/Vol] 14.2 g/dL 11.5 - 15.5 g/dL [facility] MCH (RBC) [Entitic mass] 30.2 pg 26.0 - 34.0 pg [facility] MCHC (RBC) [Mass/Vol] 32.3 g/dL 30.5 - 36.0 g/dL [facility] MCV (RBC) [Entitic vol] 93.4 fL 80.0 - 100.0 fL [facility] Nucleated RBC (Bld) [#/Vol] <0.01 k/uL [facility] Platelet mean volume (Bld) [Entitic vol] 8.7 fL Low 9.0 - 12.7 fL [facility] Platelets (Bld) [#/Vol] 313 10*3/uL 150 - 400 k/uL [facility] RBC (Bld) [#/Vol] 4.70 10*6/uL 3.90 - 5.2 0 m/uL [facility] WBC (Bld) [#/Vol] 7.03 10*3/uL 3.70 - 11. 00 k/uL [facility] Comprehensive metabolic 2000 panelon 10-17-2021 Albumin [Mass/Vol] 4.2 g/dL 3.9 - 4.9 g/dL [facility] ALP [Catalytic activity/Vol] 51 U/L 34 - 123 U/L [facility] ALT [Catalytic activity/Vol] 20 U/L 7 - 38 U/L [facility] Anion gap [Moles/Vol] 15 mmol/L 9 - 18 mmol/L [facility] AST [Catalytic activity/Vol] 28 U/L 13 - 35 U/L [facility] Bilirubin [Mass/Vol] 0.4 mg/dL 0.2 - 1 .3 mg/dL [facility] Calcium [Mass/Vol] 10.3 mg/dL High 8.5 - 10. 2 mg/dL [facility] Chloride [Moles/Vol] 102 mmol/L 97 - 10 5 mmol/L [facility] CO2 [Moles/Vol] 22 mmol/L 22 - 30 mmol/L [facility] Creatinine [Mass/Vol] 0.83 mg/dL 0.58 - 0.96 mg/dL [facility] Estimated Glomerular Filtration Rate 74 mL/min/1.73m >=60 mL/min/1.73m [facility] Glucose [Mass/Vol] 151 mg/dL High 74 - 99 mg/dL [facility] Potassium [Moles/Vol] 5.0 mmol/L 3.7 - 5.1 mmol/L [facility] Protein [Mass/Vol] 7.1 g/dL 6.3 - 8.0 g/dL [facility] Sodium [Moles/Vol] 139 mmol/L 136 - 144 mmol/L [facility] Urea nitrogen [Mass/Vol] 19 mg/dL 7 - 21 mg/dL [facility] HbA1c (Bld)on 10-17-2021 Average glucose Estimated from glycated hemoglobin (Bld) [Mass/Vol] 140 mg/dL [facility] HbA1c (Bld) [Mass fraction] 6.5 % High 4.3 - 5.6 % [facility] LIPID PANEL, NONFASTINGon Cholesterol [Mass/Vol] 240 mg/dL High <200 mg/dL [facility] HDL Cholesterol, Nonfasting 39 mg/dL Low >39 mg/dL [facility] LDL Cholesterol, Nonfasting 148 mg/dL High <100 mg/dL [facility] LDL/HDL Ratio, Nonfasting 3.79 mg/dL High <2.54 mg/dL [facility] Non HDL Cholesterol, Nonfasting 201 mg/dL High <130 mg/dL [facility] Total Chol/HDL Ratio, Nonfasting 6.15 mg/dL High <5.10 mg/dL [facility] Triglycerides, Nonfasting 266 mg/dL High <150 mg/dL [facility] VLDL Cholesterol, Nonfasting 53 mg/dL High <30 mg/dL [facility] VITAMIN D 25 HYDROXYon 10-17 25-hydroxyvitamin D3 [Mass/Vol] 42.7 ng/mL 31.0 - 80.0 ng/mL [facility] XR ANKLE GENERAL 3V AP/LAT/O BL RIGHTon 10-08-2021 [facility] XR Ankle - right AP and Late ral and obliqueon 10-08-2021 IMPRESSION: 1. Postsurgical and remote posttraumatic changes, as described. 2.Inferior long screw transfixing the syndesmosis is fractured. Radiology Special Procedure Tech: PSCB Transcribe Date/Time: Oct 08 2021 12:38P [...] hypertrophic spurring. [id number] _DIVISION OF RADIOLOGY Provider, [facility] * * *Final Report* [...] long screw transfixing the syndesmosis is fractured. Radiology Special Procedure Tech: JOHNY Transcribe Date/Time: Oct 08 2021 12:38P Dictated by : VETO BENAVIDES MD This examination was interpreted and the report reviewed and electronically signed by: VETO BENAVIDES MD on Oct 08 2021 12:41PM EST [facility] Radiology Study observation (narrative) Aline b[facility] XR Ankle - right AP and Late ral and obliqueOrdered By: Ccf Provider on 10-08-2021 [facility] Absolute lymphocyte counton 08-29-2021 Lymphocytes Auto (Unsp spec) [#/Vol] 1.10 10*3/uL 0.83-4.51 [facility] Work Phone: Basophil percentageon 2021 Basophils/100 WBC (Bld) 0.3 % 0-1 [facility] Work Phone: Chloride [Moles/Vol] 105 mmol/L 98-107 [facility] Work Phone: Eosinophils/100 WBC (Bld) 1.5 % 0-5 [facility] Work Phone: Glucose [Mass/Vol] 145 mg/dL 74-106 [facility] Work Phone: Comment on above: Fasting Glucose resu lt greater than or equal to 126 mg/dL suggests DIABETES MELLITUS per A.D.A. criteria. Neutrophils (Bld) [#/Vol] 4.8 10*3/uL 2.0-7.7 [facility] Work Phone: Neutrophils/100 WBC (Bld) 72.7 % 47-70 [facility] Work Phone: Potassium [Moles/Vol] 4.8 mmol/L 3.5-5.1 [facility] Work Phone: Comment on above: Moderate Hemolysis, Result may be falsely increased. Sodium [Moles/Vol] 138 mmol/L 136-145 [facility] Work Phone: WBC (Bld) [#/Vol] 6.6 10*3/uL 4.4-11.0 [facility] Work [facility]: Basophil percentage 0 SEEN /hpf [facility] Work Phone: Bilirubin Test strip Ql (U)o n 08-29-2021 Bilirubin Ql (U) Negative Negative [facility] Work Phone: [phone] Blood erythrocytes count (nu mber/volume)on 08-29-2021 RBC (Bld) [#/Vol] 4.55 10*6/uL 4.2-5.4 [facility]: Blood hemoglobin measurement (mass/volume)on 08-29-2021 Hemoglobin (Bld) [Mass/Vol] 13.9 g/dL 12.0-15.0 [facility] Work Phone: Blood lymphocytes/100 leukoc yteson 08-29-2021 Lymphocytes/100 WBC (Bld) 16.6 % 19-41 [facility] Work Phone: Blood monocytes/100 leukocyt eson 08-29-2021 Monocytes/100 WBC (Bld) 8.6 % 0-10 [facility] Work Phone: [phone] Blood platelet mean volumeon 08-29-2021 Platelet mean volume (Bld) [Entitic vol] 8.5 fL 6.2-12.0 [facility] Work Phone: Determination of erythrocyte mean corpuscular volume (MCV)on 08-29-2021 MCV (RBC) [Entitic vol] 87.5 fL 81-99 [facility] Work Phone: Hematocrit Auto (Bld) [Volum e fraction]on 08-29-2021 Hematocrit (Bld) [Volume fraction] 39.8 % 37-47 [facility] Work Phone: Ketones Test strip Ql (U)on 08-29-2021 Ketones Ql (U) Negative Negative [facility] Work Phone: Laboratory - Chemistry and C hemistry - challengeon 08-29-2021 CO2 [Moles/Vol] 27.0 mmol/L 21.0-32.0 [facility] Work Phone: [phone] Urea nitrogen/Creatinine [Mass ratio] 15.2 mg/mg 10-20 [facility] Work Phone: [phone] Laboratory - Hematology and Cell countson 08-29-2021 Erythrocyte distribution width (RBC) [Entitic vol] 40.8 fL 35.1-43.9 [facility] Work Phone: [phone] Erythrocyte distribution width (RBC) [Ratio] 12.7 % 11.6-14.6 [facility] Work Phone: [phone] Immature granulocytes/100 WBC (Bld) 0.300 % 0.0-0.9 [facility] Work Phone: [phone] Comment on above: IG% - Immature Granu locytes (promyelocytes, myelocytes and metamyelocytes) > 1% indicates that a LEFT SHIFT is Present. MCH (RBC) [Entitic mass] 30.5 pg 27.0-32.0 [facility] Work Phone: [phone] Nucleated RBC/100 WBC (Bld) [Ratio] 0 % 0-5 [facility] Work Phone: [phone] MCHC Auto (RBC) [Mass/Vol]on 08-29-2021 MCHC (RBC) [Mass/Vol] 34.9 g/dL 32-36 [facility] Work Phone: [phone] Mucus LM Ql (Urine sed)on Mucus Ql (Urine sed) 0 SEEN /hpf [facility] Work Phone: [phone] Nitrite Test strip Ql (U)on 08-29-2021 Nitrite Ql (U) Negative Negative [facility] Work Phone: [phone] No Panel Informationon 08-29 Estimated Creatinine Clearance Calc 38.29 ml/min [facility] Work Phone: [phone] Estimated GFR (MDRD) Amer 66 mL/min >60 [facility] Work Phone: [phone] Comment on above: GFR Calc Estimated GFR (MDRD) Non-Af Amer 54 mL/min >60 [facility] Work Phone: Comment on above: Non- GFR Calc Platelets bldon 08-29-2021 Platelets (Bld) [#/Vol] 324 10*3/uL 150-450 [facility] Work Phone: Protein Test strip Ql (U)on 08-29-2021 Protein Ql (U) Negative Negative [facility] Work Phone: Serum or plasma calcium rodríguez urement (mass/volume)on 08-29-2021 Calcium [Mass/Vol] 9.8 mg/dL 8.5-10.1 [facility] Work Phone: Serum or plasma creatinine m easurement (mass/volume)on 08-29-2021 Creatinine [Mass/Vol] 1.05 mg/dL 0.55-1.02 [facility] Work Phone: Comment on above: The validity of the calculated GFR & GFRAA in patients over 70 years has not been determined. Clinical correlation is essential. Serum or plasma urea nitroge n measurement (mass/volume)on 08-29-2021 Urea nitrogen [Mass/Vol] 16 mg/dL 7-18 [facility] Work Phone: Squamous epithelial cells de tection in urine sediment by light microscopyon 08-29-2021 Epithelial cells.squamous LM Ql (Urine sed) 0 SEEN /hpf [facility] Work Phone: Thin prep Papanicolaou smear with manual screeningon 08-29-2021 Thin prep Papanicolaou smear with manual screening 6 5-15 [facility] Work Phone: Urine blood detectionon 05- RBC Ql (U) 250 /ul Negative [facility] Work Phone: [phone] RBC Ql (U) 10-25 SEEN /hpf [facility] Work Phone: Urine clarityon 08-29-2021 Clarity (U) Cloudy Clear [facility] Work Phone: [phone] Urine color determinationon 08-29-2021 Color (U) Yellow Yellow [facility] Work Phone: Urine glucose detectionon Glucose Ql (U) Normal mg/dl Normal [facility] Work Phone: Urine leukocyte esterase det ection by dipstickon 08-29-2021 Leukocyte esterase Test strip Ql (U) 25 /ul Negative [facility] Work Phone: Urine pHon 08-29-2021 pH (U) 8.0 [pH] [facility] Work Phone: Urine sediment bacteria coun t by microscopy (number/high power field)on 08-29-2021 Bacteria LM.HPF (Urine sed) [#/Area] 1 /[HPF] None Seen [facility] Work Phone: Urine specific gravity measu rementon 08-29-2021 Specific gravity (U) [Rel density] 1.015 [facility] Work Phone: Urobilinogen Auto test strip Ql (U)on 08-29-2021 Urobilinogen Ql (U) Normal mg/dl Normal [facility] Work Phone: XR KNEE 3V AP/LAT/MERCHANT R [...] Moderate narrowing medial compartment IMPRESSION: Stable TKA Radiology Special Procedure Tech: JOHNY Transcribe Date/Time: Aug 07 2021 1:41P Dictated by : MAR LOPEZ DO This examination was interpreted and the report reviewed and electronically signed by: MAR LOPEZ DO on Aug 07 2021 1:42PM EST [id number] Normal [facility] XR KNEE POST OP 3V AP/LAT/ME RCHANT RIGHTon 08-07-2021 [facility] MRA BRAIN WO/W IVCONon 07-03 MRA BRAIN WO/W IVCON * * *Final Report* * * DATE OF EXAM: Jul 03 2021 11:20AM [facility] 0273 - MRA BRAIN WO/W IVCON / 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 Nonruptured cerebral aneurysm. TECHNIQUE: Intracranial 3D rlzg-lq-gqpaym MRA and post contrast T1 SPGR images [...] distal basilar at the junction of the director of retail and left SCA. The residual portions of the aneurysm neck give rise to the bilateral P1 segments of the left SCA. Suboptimal evaluation of the left greater than right distal ICAs and the gabe (more content not included)... Normal [facility] CBC and Differentialon 03-14 Abs Baso 0.03 k/uL Normal <0.11 [facility] Comment on above: Performed By: #### C BCDIF MG1, CMP ####[facility] [address] [place] [address] Abs [place] 0.68 k/uL Normal <0.87 [facility] Comment on above: Performed By: #### C BCDIHermelinda MG1, CMP ####[facility] [address] [place] [address] Abs Neut 4.92 k/uL Normal 1.45-7.50 [facility] Comment on above: Performed By: #### Shruti BCVIKTOR MG1, CMP ####[place] [address] Absolute nRBC <0.01 Normal <0.01 [facility] Comment on above: Performed By: #### Shruti BCMARTHAF MG1, CMP ####[place] [address] Basophils/100 WBC (Bld) 0.4 % Normal [facility] Comment on above: Performed By: #### Shruti BCDIF MG1, CMP ####[place] [address] DTYPE Auto Diff Normal [facility] Comment on above: Performed By: #### Shruti BCDIF, MG1, CMP ####[place] [address] Eosinophils (Bld) [#/Vol] 0.15 10*3/uL Normal <0.46 [facility] Comment on above: Performed By: #### Shruti BCDIF, MG1, CMP ####[facility] [address] [place] [address] Eosinophils/100 WBC (Bld) 2.1 % Normal [facility] Comment on above: Performed By: #### Shruti BCDIF MG1, CMP ####[facility] [address] [place] [address] Erythrocyte distribution width (RBC) [Ratio] 12.4 % Normal 11.5-15.0 [facility] Comment on above: Performed By: #### C BCDIF, MG1, CMP ####[facility] [address] [place] [address] Hematocrit (Bld) [Volume fraction] 42.2 % Normal 36.0-46.0 [facility] Comment on above: Performed By: #### C BCDIF, MG1, CMP ####[facility] [address] [place] [address] Hemoglobin (Bld) [Mass/Vol] 13.9 g/dL Normal 11.5-15.5 [facility] Comment on above: Performed By: #### C BCDIF, MG1, CMP ####[place] [address] Lymphocytes (Bld) [#/Vol] 1.41 10*3/uL Normal 1.00-4.00 [facility] Comment on above: Performed By: #### C BCDIF, MG1, CMP ####[facility] [address] [place] [address] Lymphocytes/100 WBC (Bld) 19.6 % Normal [facility] Comment on above: Performed By: #### C BCDIF, MG1, CMP ####[facility] [address] [place] [address] MCH 31.2 pG Normal 26.0-34.0 [facility] Comment on above: Performed By: #### C BCDIF, MG1, CMP ####[facility] [address] [place] [address] MCHC (RBC) [Mass/Vol] 32.9 g/dL Normal 30.5-36.0 [facility] Comment on above: Performed By: #### C BCDIF, MG1, CMP ####[facility] [address] [place] [address] MCV (RBC) [Entitic vol] 94.6 fL Normal 80.0-100.0 [facility] Comment on above: Performed By: #### C DEREK MG1, CMP ####[facility] [address] Monocytes/100 WBC (Bld) 9.4 % Normal [facility] Comment on above: Performed By: #### Shruti REED MG1, CMP ####[facility] [address]3686 [address] Neutrophils/100 WBC (Bld) 68.5 % Normal [facility] Comment on above: Performed By: #### C DEREK MG1, CMP ####[facility] [address] [place] [address] NRBCs 0.0 /100 WBC Normal 0 [facility] Comment on above: Performed By: #### Shruti REED MG1, CMP ####[facility] [address] [place], [place] [id number] Platelet mean volume (Bld) [Entitic vol] 8.6 fL Low 9.0-12.7 [facility] Comment on above: Performed By: #### Shruti REED MG1, CMP ####[facility] [address] [place] [address] Platelets (Bld) [#/Vol] 349 10*3/uL Normal 150-400 [facility] Comment on above: Performed By: #### Shruti REED MG1, CMP ####[facility] [address] [place], [place] [id number] RBC (Bld) [#/Vol] 4.46 10*6/uL Normal 3.90-5.20 [facility] Comment on above: Performed By: #### Shruti REED, MG1, CMP ####[facility] [address] [place], [place] [id number] WBC (Bld) [#/Vol] 7.21 10*3/uL Normal 3.70-11.00 [facility] Comment on above: Performed By: #### Shruti SMILEYF, MG1, CMP ####[facility] [address] [place] [id number] CT ABD/PEL WO IVCONon 2020 CT ABD/PEL WO IVCON * * *Final Report* * * DATE OF EXAM: Mar 14 2021 4:19PM [facility] 0531 - CT ABD/PEL WO IVCON / [...] the right lower lobe suggestive of atelectasis. Swahili Teacher (topogram) images: IMPRESSION: 1. No acute intra-abdominal/pelvic abnormalities are identified. 2. Diverticulosis. Radiology Special Procedure Tech: PSCB Transcribe Date/Time: Mar 14 2021 4:21P Dictated by : NRORIS HERNÁNDEZ MD This examination was interpreted and the report reviewed and electronically signed by: NORRIS HERNÁNDEZ MD on Mar 14 2021 4:33PM EST [id number] [facility] CT CHEST W IVCON PEon 2020 CT CHEST W IVCON PE * * *Final Report* * * DATE OF EXAM: Mar 14 2021 3:01PM [facility] 0540 - CT CHEST W IVCON PE [...] No abnormality in the imaged upper abdomen. Swahili Teacher (topogram) images: No additional findings. IMPRESSION: No CT evidence of pulmonary embolism. No acute chest pathology. Radiology Special Procedure Tech: JOHNY Transcribe Date/Time: Mar 14 2021 3:23P Dictated by : CANDE WEAVER MD This examination was interpreted and the report reviewed and electronically signed by: CANDE WEAVER MD on Mar 14 2021 3:30PM EST [id number] Normal [facility] Cepheid Bill only (EXCFR)on 03-14-2021 Cepheid Bill only (EXCFR) Billed for services performed Normal [facility] Comment on above: Performed By: #### C FRCEP, EXCFR ####[facility] [address] [place] [address] Comp Metabolic Panelon 03-14 Albumin [Mass/Vol] 4.4 g/dL Normal 3.9-4.9 [facility] Comment on above: Performed By: #### C BCDIF, MG1, CMP ####[facility] [address] [place] [address] ALP [Catalytic activity/Vol] 52 U/L Normal 34-123 [facility] Comment on above: Performed By: #### C BCDIF, MG1, CMP ####[facility] [address] [place] [address] ALT [Catalytic activity/Vol] 27 U/L Normal 7-38 [facility] Comment on above: Performed By: #### C BCDIF, MG1, CMP ####[facility] [address] [place] [address] Anion gap [Moles/Vol] 15 mmol/L Normal 9-18 [facility] Comment on above: Performed By: #### C BCDIF, MG1, CMP ####[facility] [address] [place] [address] AST [Catalytic activity/Vol] 27 U/L Normal 13-35 [facility] Comment on above: Performed By: #### C BCDIF, MG1, CMP ####[facility] I[address]a2350 [address] Bilirubin [Mass/Vol] 0.4 mg/dL Normal 0.2-1.3 [facility] Comment on above: Performed By: #### C BCDIF, MG1, CMP ####[facility] R[address]q3954 [address] Calcium [Mass/Vol] 10.0 mg/dL Normal 8.5-10.2 [facility] Comment on above: Performed By: #### C BCDIF, MG1, CMP ####[facility] [address] [place] [address] Chloride [Moles/Vol] 100 mmol/L Normal 97-105 [facility] Comment on above: Performed By: #### C DEREK MG1, CMP ####[facility] [address] [place] [id number] CO2 [Moles/Vol] 23 mmol/L Normal 22-30 [facility] Comment on above: Performed By: #### C DEREK MG1, CMP ####[facility] [address] [place] [address] Creatinine [Mass/Vol] 0.73 mg/dL Normal 0.58-0.96 [facility] Comment on above: Performed By: #### C DEREK MG1, CMP ####[facility] [address] [place] [address] eGFR- Amer. >60 Normal [facility] Comment on above: Performed By: #### C DEREK MG1, CMP ####[facility] [address] [place] [address] eGFR-All Other Races >60 Normal [facility] Comment on above: Result Comment: eGFR (Estimated [...] Performed By: #### C BCDIF MG1, CMP ####[facility] [address] [place] [id number] Glucose [Mass/Vol] 128 mg/dL High 74-99 [facility] Comment on above: Result Comment: The [place] [employer] (ADA) provides guidance for cutoff [...] Standards of Medical Care in Diabetes 2016, [place] [employer]. Diabetes Care. 2016.39(Suppl 1). Performed By: #### C BCDIF, MG1, CMP ####[facility] [address] [place] [address] Potassium [Moles/Vol] 4.3 mmol/L Normal 3.7-5.1 [facility] Comment on above: Performed By: #### C BCDIF MG1, CMP ####[facility] [address] [place] [address] Protein [Mass/Vol] 7.0 g/dL Normal 6.3-8.0 [facility] Comment on above: Performed By: #### C BCDIF, MG1, CMP ####[facility] [address] [place] [address] Sodium [Moles/Vol] 138 mmol/L Normal 136-144 [facility] Comment on above: Performed By: #### C BCDIF, MG1, CMP ####[facility] [address] [place] [address] Urea nitrogen [Mass/Vol] 18 mg/dL Normal 7-21 [facility] Comment on above: Performed By: #### C BCDIF, MG1, CMP ####[facility] [address] [place] [address] ED NOTEon 03-14-2021 ED NOTE HNO ID: [id number] Author: Luis M Ward RN Service: ? Author Type: Registered Nurse Type: ED Notes Filed: 03/14/2021 5:12 PM Note Text: Pt given discharge instructions, pt verbalized understanding and importance of follow up care, pt ambulatory at bedside, pt discharged without incident. Normal [facility] ED NOTE HNO ID: [id number] Author: Corinne Conway RN Service: ? Author Type: Registered Nurse Type: ED Notes Filed: 03/14/2021 12:48 PM Note Text: Pt to ED with SOB for the last 6 days and elevated HR. Went to [facility] and sent to ED for evaluation. Denies pain. Normal [facility] ED PROV NOTEon 03-14-2021 ED PROV NOTE HNO ID: [id number] Author: Ilia Montgomery MD Service: ? Author [...] PM Ilia Montgomery MD 03/14/21 2233 Normal [facility] ED PROV NOTE HNO ID: [id number] Author: Vielka Saenz DO Service: Emergency Medicine [...] of breath. She has not taken any ppba-sfh-wyewpwz medications for symptoms. Her son took her [...] provided by: Medical records, relative and patient clinical cytogenetics director used: No PAST MEDICAL HISTORY Diagnosis Date [...] - OPEN TREATMENT,TRIMALLEOLAR ANKLE FRACTURE Right 05/29/2018 [facility] [place] FASCIECTOMY Right 01/05/2019 Right 5th finger palmar fasciectomy - PICC LINE INSERT/CONSULT 01/23/2021 - PICC LINE INSERT/CONSULT 01/29/2021 - AR ANESTH,REPAIR LO ABD HERNIA NOS - REMV [...] headaches. Physical (more content not included)... Normal [facility] EXCOVD, Flu A/B, RSV (On int erfaces 1102,1120)on 03-14-2021 Influenza A PCR Negative Normal [facility] Comment on above: Performed By: #### C FRCEP, EXCFR ####[facility] [address] [place] [address] Influenza B PCR Negative [facility] Comment on above: Performed By: #### C FRCEP, EXCFR ####[place] [address] [facility] Comment on above: Result Comment: This test has been authorized by [facility] under an Emergency Use Authorization (EUA). Performed By: #### C FRCEP, EXCFR ####[place] [address] SARS-CoV-2 (COVID-19) RNA DUSTIN+probe Ql (Unsp spec) UPPER RESPIRATORY TRACT SWAB Normal [facility] Comment on above: Performed By: #### C FRCEP, EXCFR ####[place] [address] SARS-CoV-2 (COVID-19) RNA DUSTIN+probe Ql (Unsp spec) Negative for COVID19 (SARS CoV2) by RT-PCR or equivalent method. Normal Negative for COVID19 (SARS CoV2) by RT-PCR or equivalent method. [facility] Comment on above: Result Comment: This test has been authorized by [facility] under an Emergency Use Authorization (EUA). Performed By: #### C FRCEP, EXCFR ####[facility] [address] [place], [place] [phone] Lipaseon 03-14-2021 Lipase [Catalytic activity/Vol] 54 U/L Normal 16-61 [facility] [facility] Comment on above: Performed By: #### L IPA ####[address] Magnesiumon 03-14-2021 Magnesium [Mass/Vol] 2.1 mg/dL Normal 1.7-2.3 [facility] Comment on above: Performed By: #### C BCDIF, MG1, CMP ####[facility] [address] [place] [address] NT Pro BNPon 03-14-2021 PRO B Natr Peptide <50 Normal <450 [facility] Comment on above: Performed By: #### N TBNP ####[facility] [address] [place] [address] Troponin Ton 03-14-2021 Troponin T <0.010 Normal 0.000-0.029 [facility] Comment on above: Performed By: #### T NT ####[facility] [address] [place] [address] Urinalysison 03-14-2021 Bilirubin, Urine Negative Normal Negative [facility] Comment on above: Performed By: #### U A ####[place] [address] Clarity (U) Clear Normal Clear [facility] Comment on above: Performed By: #### U A ####[place] [address] Color (U) Yellow Normal Yellow [facility] Comment on above: Performed By: #### U A ####[facility] [address] [place] [address] Comments SEE COMMENT Normal [facility] Comment on above: Result Comment: Best practice alert: to ensure optimal and accurate results, transfer urine specimens to an appropriate urine preservative tube. Performed By: #### U A ####[facility] [address] [place] [address] Glucose Ql (U) Negative Normal Negative [facility] Comment on above: Performed By: #### U A ####[facility] [address] [place] [address] Hemoglobin/Blood,Ur Negative Normal Negative [facility] Comment on above: Performed By: #### U A ####[place] [address] Ketones Ql (U) Negative Normal Negative [facility] Comment on above: Performed By: #### U A ####[facility] [address] [place] [address] Leukest Negative Normal Negative [facility] Comment on above: Performed By: #### U A ####[facility] [address] [place] [address] Nitrite Ql (U) Negative Normal Negative [facility] Comment on above: Performed By: #### U A ####[facility] [address] [place] [address] pH (U) 6.0 [pH] Normal 5.0-8.0 [facility] Comment on above: Performed By: #### U A ####[facility] [address] [place] [address] Protein, Urine Negative Normal Negative [facility] Comment on above: Performed By: #### U A ####[facility] [address] [place] [address] Specific [place], Ur <=1.005 Normal 1.005-1.030 [facility] Comment on above: Performed By: #### U A ####[place] [address] Urobilinogen Qn (U) 0.2 {Cuco'U}/dL Normal 0.2-1.0 [facility] Comment on above: Performed By: #### U A ####[facility] [address] [place] [address] APTTon 01-08-2021 aPTT Coag (Bld) [Time] 23.6 s Normal 23.0-32.4 [facility] Comment on above: Result Comment: Unfr [...] laboratory APTT reagent in use throughout the [facility]. Performed By: #### C BC, PT, PTT, BMP ####[facility] [address] [place] [address] ASP/NATIVIDAD Resist Panelon 01-08 ADP Max Aggreg 17 % Max Low 65-93 [facility] Comment on above: Performed By: #### A SPCLP ####[facility] [address] [place], [place] [phone] Arach Max Aggreg 11 % Max Low 75-100 [facility] Comment on above: Performed By: #### A SPCLP ####[facility] [place], [place] [phone] Interpretation (NOTE) Normal [facility] Comment on above: Result Comment: Perf orming [...] percent. These parameters were developed at the [facility] utilizing the assay and reagents performed on this patient's platelets. Ana M VELA. Trace Alberts. Manda VELA. Viviana UMAÑA. A prospective, blinded determination of the natural history of aspirin resistance among stable patients with cardiovascular disease. Journal of the [place] [employer]. 41(6):961-5, 2003. There is [...] medication history. Performed By: #### A SPCLP ####[facility] [address] [place], [place] [phone] Basic Metabolic Panlon 01-08 Anion gap [Moles/Vol] 9 mmol/L Normal 9-18 [facility] Comment on above: Performed By: #### C BC, PT, PTT, BMP ####[facility] [address] [place], [place] [phone] Calcium [Mass/Vol] 9.4 mg/dL Normal 8.5-10.2 [facility] Comment on above: Performed By: #### C BC, PT, PTT, BMP ####[facility] [address] [place] [address] Chloride [Moles/Vol] 100 mmol/L Normal 97-105 [facility] Comment on above: Performed By: #### C BC, PT, PTT, BMP ####[facility] [address] [place] [phone] CO2 [Moles/Vol] 28 mmol/L Normal 22-30 [facility] Comment on above: Performed By: #### C BC, PT, PTT, BMP ####[facility] [address] [place] [address] Creatinine [Mass/Vol] 0.77 mg/dL Normal 0.58-0.96 [facility] Comment on above: Performed By: #### C BC, PT, PTT, BMP ####[facility] [address] [place] [address] eGFR- Amer. >60 Normal [facility] Comment on above: Performed By: #### C BC, PT, PTT, BMP ####[facility] [address] [place] [address] eGFR-All Other Races >60 Normal [facility] Comment on above: Result Comment: eGFR (Estimated [...] By: #### C BC, PT, PTT, BMP ####[facility] [address] [place] [phone] Glucose [Mass/Vol] 134 mg/dL High 74-99 [facility] Comment on above: Result Comment: The [place] Diabetes Association (ADA) provides guidance for cutoff [...] Standards of Medical Care in Diabetes 2016, [place] [employer]. Diabetes Care. 2016.39(Suppl 1). Performed By: #### C BC, PT, PTT, BMP ####[place] [address] Potassium [Moles/Vol] 4.9 mmol/L Normal 3.7-5.1 [facility] Comment on above: Performed By: #### C BC, PT, PTT, BMP ####[place] [address] Sodium [Moles/Vol] 137 mmol/L Normal 136-144 [facility] Comment on above: Performed By: #### C BC, PT, PTT, BMP ####[place] [address] Urea nitrogen [Mass/Vol] 21 mg/dL Normal 7-21 [facility] Comment on above: Performed By: #### C BC, PT, PTT, BMP ####[place] [address] CBCon 01-08-2021 Absolute nRBC <0.01 Normal <0.01 [facility] Comment on above: Performed By: #### C BC, PT, PTT, BMP ####[place] [address] Erythrocyte distribution width (RBC) [Ratio] 13.2 % Normal 11.5-15.0 [facility] Comment on above: Performed By: #### C BC, PT, PTT, BMP ####[place] [address] Hematocrit (Bld) [Volume fraction] 40.0 % Normal 36.0-46.0 [facility] Comment on above: Performed By: #### C BC, PT, PTT, BMP ####[place] [address] Hemoglobin (Bld) [Mass/Vol] 12.8 g/dL Normal 11.5-15.5 [facility] Comment on above: Performed By: #### C BC, PT, PTT, BMP ####[facility] [address] [place] [address] MCH 30.5 pG Normal 26.0-34.0 [facility] Comment on above: Performed By: #### C BC, PT, PTT, BMP ####[facility] [address] [place] [address] MCHC (RBC) [Mass/Vol] 32.0 g/dL Normal 30.5-36.0 [facility] Comment on above: Performed By: #### C BC, PT, PTT, BMP ####[facility] [address] [place] [address] MCV (RBC) [Entitic vol] 95.5 fL Normal 80.0-100.0 [facility] Comment on above: Performed By: #### C BC, PT, PTT, BMP ####[place] [address] Platelet mean volume (Bld) [Entitic vol] 8.4 fL Low 9.0-12.7 [facility] Comment on above: Performed By: #### C BC, PT, PTT, BMP ####[place] [address] Platelets (Bld) [#/Vol] 297 10*3/uL Normal 150-400 [facility] Comment on above: Performed By: #### C BC, PT, PTT, BMP ####[facility] [address] [place] [address] RBC (Bld) [#/Vol] 4.19 10*6/uL Normal 3.90-5.20 [facility] Comment on above: Performed By: #### C BC, PT, PTT, BMP ####[place] [address] WBC (Bld) [#/Vol] 5.23 10*3/uL Normal 3.70-11.00 [facility] Comment on above: Performed By: #### C BC, PT, PTT, BMP ####[facility] [address] [place], [place] [phone] HISTORY PHYSICALon HISTORY PHYSICAL HNO ID: [id number] Author: Gladis Bates APRN.DESIRAE Service: ? Author [...] SYSTEM at the request of Dr. Zafar Joens for consultation. My final recommendation will be [...] fibrillation, CAD, chest pain, CHF, DVT/PE, recent HI and murmur/valvular heart disease. GI: Positive for: GERD (Occasional heartburn, Prilosec PRN) Negative for: abdominal pain, difficulty swallowing, diverticulitis, GI bleed <30 days, hepatitis, irritable bowel syndrome, inflammatory bowel disease, liver disease, nausea and vomiting. : Positive for: nocturia >1 time per night. Negative for: dysuria, frequent urination, hematuria, nephrolithiasis, renal failure, urgency and urinary tract infection. CLINICAL LAW PROFESSOR: Negative for abnormal vaginal bleeding, abnormal vaginal [...] BY UZAIR (more content not included)... Normal [facility] Protimeon 01-08-2021 PT INR 1.0 Normal 0.9-1.3 [facility] Comment on above: Result Comment: Analilia min K Antagonist (VKA) Therapeutic Range: INR 2 to 3 (Target INR of 2.5) Note: For patients treated with VKA drugs, such as warfarin, the [place] [employer] 2012 Guideline recommends [...] Chest 2012, 141:7S-47S Hawk RA, et al. [facility] 2017, 70: 252-289 Performed By: #### C BC, PT, PTT, BMP ####[facility] [address] PT Sec 10.2 sec Normal 9.7-13.0 [facility] Comment on above: Performed By: #### C BC, PT, PTT, BMP ####[facility] [address] [place] [phone] XR Chest PA and Lateralon IMPRESSION: No acute radiographic abnormality. Radiology Special Procedure Tech: PSCElizabeth Transcribe Date/Time: Dec 25 2020 1:18P Dictated by : ANTHONY NYE MD This examination was interpreted and the report reviewed and electronically signed by: ANTHONY NYE MD on Dec 25 2020 1:19PM [facility] DIVISION OF RADIOLOGY * * *Final [...] Unremarkable. DIVISION OF RADIOLOGY Provider, Joel Hermosillo [facility] - 12/25/2020 * * *Final Report* * [...] Unremarkable. IMPRESSION IMPRESSION: No acute radiographic abnormality. 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 ARCHITECTURAL COATING FINISHER(S): Anant Horton MD PROCEDURE: Diagnostic CervicoCerebral Angiography [...] DATE: December 06, 2020 TIME: 12:35 PM [id number] Normal [facility] NIL CAROTID CEREBRAL UNILATE [facility] 12-06-2020 NIL CAROTID CEREBRAL UNILATERAL * * [...] END TIME: 12:22P{M ATTENDING: Dianne Cherry MD, ARCHITECTURAL COATING FINISHER (FELLOW): Anant Horton MD The procedure was performed by the the expanded function dental assistant, and the attending personally supervised the entire procedure. The attending performed the following procedural activities: Diagnostic cerebral angiogram. ANGIOGRAPHY MATERIALS: Diagnostic catheter: 5 Canadian Vert Catheter Guidewire: 0.035 inch angled tapered [...] right common femoral artery utilizing a 4 Canadian micropuncture set. A 5 Canadian sheath was inserted and connected to heparinized [...] JOSSELIN. Capill (more content not included)... Normal [facility] NIL INTERNAL/CEREBRAL UNIon 12-06-2020 NIL INTERNAL/CEREBRAL UNI [...] END TIME: 12:22P{M ATTENDING: Dianne Cherry MD, ARCHITECTURAL COATING FINISHER (FELLOW): Anant Horton MD The procedure was performed by the the expanded function dental assistant, and the attending personally supervised the entire procedure. The attending performed the following procedural activities: Diagnostic cerebral angiogram. ANGIOGRAPHY MATERIALS: Diagnostic catheter: 5 Canadian Vert Catheter Guidewire: 0.035 inch angled tapered [...] right common femoral artery utilizing a 4 Canadian micropuncture set. A 5 Canadian sheath was inserted and connected to heparinized [...] Capillary and (more content not included)... Normal [facility] NIL THOMPSON UNI EXT CAROTID H/No n 12-06-2020 NIL [...] END TIME: 12:22P{M ATTENDING: Dianne Cherry MD, ARCHITECTURAL COATING FINISHER (FELLOW): Anant Horton MD The procedure was performed by the the expanded function dental assistant, and the attending personally supervised the entire procedure. The attending performed the following procedural activities: Diagnostic cerebral angiogram. ANGIOGRAPHY MATERIALS: Diagnostic catheter: 5 Canadian Vert Catheter Guidewire: 0.035 inch angled tapered [...] intra-service time was 60 minutes. TECHNIQUE: After dnenis discussion of the risks and benefits of [...] right common femoral artery utilizing a 4 Canadian micropuncture set. A 5 Canadian sheath was inserted and connected to heparinized [...] JOSSELIN. Capillary (more content not included)... Normal [facility] NIL UNI VERT-SC/INOM INJECTo n 12-06-2020 NIL [...] END TIME: 12:22P{M ATTENDING: Dianne Cherry MD, ARCHITECTURAL COATING FINISHER (FELLOW): Anant Horton MD The procedure was performed by the the expanded function dental assistant, and the attending personally supervised the entire procedure. The attending performed the following procedural activities: Diagnostic cerebral angiogram. ANGIOGRAPHY MATERIALS: Diagnostic catheter: 5 Canadian Vert Catheter Guidewire: 0.035 inch angled tapered [...] right common femoral artery utilizing a 4 Canadian micropuncture set. A 5 Canadian sheath was inserted and connected to heparinized [...] JOSSELIN. Capillary (more content not included)... Normal [facility] NIL VERT UNIon 12-06-2020 NIL VERT UNI [...] END TIME: 12:22P{M ATTENDING: Dianne Cherry MD, ARCHITECTURAL COATING FINISHER (FELLOW): Anant Horton MD The procedure was performed by the the expanded function dental assistant, and the attending personally supervised the entire procedure. The attending performed the following procedural activities: Diagnostic cerebral angiogram. ANGIOGRAPHY MATERIALS: Diagnostic catheter: 5 Canadian Vert Catheter Guidewire: 0.035 inch angled tapered [...] right common femoral artery utilizing a 4 Canadian micropuncture set. A 5 Canadian sheath was inserted and connected to heparinized [...] venous phases (more content not included)... Normal [facility] XR KNEE 3V AP/LAT/MERCHANT R Ton 09-05-2020 [...] New RIGHT total knee arthroplasty without complication. Radiology Special Procedure Tech: JOHNY Transcribe Date/Time: Sep 05 2020 12:12P Dictated by : OSBALDO ARANA DO This examination was interpreted and the report reviewed and electronically signed by: OSBALDO ARANA DO on Sep 05 2020 12:14PM EST [id number] 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 TECHNIQUE: Intracranial 3D [id number] MRA. 3D maximum intensity projection images were [...] is suspected within the visualized intracranial vasculature. Radiology Special Procedure Tech: JOHNY Transcribe Date/Time: Aug 02 2020 8:44A Dictated by : ADAM ROSE MD This examination was interpreted and the report reviewed and electronically signed by: ADAM ROSE MD on Aug 02 2020 9:02AM EST [id number] Normal [facility] XR Ankle - left AP and Later al and obliqueon 05-06-2020 IMPRESSION: Soft tissue swelling. No evidence of acute fracture. Radiology Special Procedure Tech: JOHNY Transcribe Date/Time: May 06 2020 11:28A Dictated by : REINA COLLIER MD This examination was interpreted and the report reviewed and electronically signed by: REINA COLLIER MD on May 06 2020 11:29AM [facility] DIVISION OF RADIOLOGY * * *Final [...] healed fracture. - DIVISION OF RADIOLOGY Provider, [facility] - 05/06/2020 * * *Final Report* * [...] tissue swelling. No evidence of acute fracture. Radiology Special Procedure Tech: PSCB Transcribe Date/Time: May 06 2020 11:28A Dictated by : REINA COLLIER MD This examination was interpreted and the report reviewed and electronically signed by: REINA COLLIER MD on May 06 2020 11:29AM EST [facility] Radiology Study observation (narrative) [facility] XR Ankle - left AP and Later al and obliqueOrdered By: Ccf Provider on 05-06-2020 [facility] Vital Signs Date Time Vital Sign Value Performing Clinician Facility 09-09-2024 00:58-0400 Body temperature 98 [degF] Dr. Ruddy Cooper MD Work Phone: 1(623)927-888422 [place] [address] 09-09-2024 00:58-0400 Diastolic blood pressure 70 mm[Hg] Dr. Ruddy Cooper MD Work Phone: 8(930)928-515822 [place] [address] 09-09-2024 00:58-0400 Heart rate 78 /min Dr. Ruddy Cooper MD Work Phone: 2(132)978-240622 [place] [address] 09-09-2024 00:58-0400 Respiratory rate 20 /min Dr. Ruddy Cooper MD Work Phone: 4(247)792-404822 [place] [address] 09-09-2024 00:58-0400 SaO2% (BldA) [Mass fraction] 99 % Dr. Ruddy Cooper MD Work Phone: 6(791)401-875122 [place] [address] 09-09-2024 00:58-0400 Systolic blood pressure 117 mm[Hg] Dr. Ruddy Cooper MD Work Phone: 9(795)271-711722 [place] [address] 09-08-2024 22:11-0400 Body height 160.[address] Ruddy Cooper MD Work Phone: 2(633)212-822322 [place] [address] 09-08-2024 22:11-0400 Body mass index (BMI) [Ratio] 26.4 kg/m2 Dr. Ruddy Cooper MD Work Phone: 6(924)070-954222 [place] [address] 09-08-2024 22:11-0400 Body weight 67.[address] Ruddy Cooper MD Work Phone: [facility] 09-07-2024 13:42-0400 Diastolic blood pressure 65 mm[Hg] Bradford Love APRON WORKER.EDGE CUTTING MACHINE OPERATOR Work Phone: [facility] 09-07-2024 13:42-0400 Heart rate 91 /min Bradford Love APRON WORKER.EDGE CUTTING MACHINE OPERATOR Work Phone: [facility] 09-07-2024 13:42-0400 Systolic blood pressure 99 mm[Hg] Bradford Love APRON WORKER.EDGE CUTTING MACHINE OPERATOR Work Phone: [facility] 09-07-2024 13:39-0400 Body mass index (BMI) [Ratio] 26.13 kg/m2 Bradford Love APRON WORKER.EDGE CUTTING MACHINE OPERATOR Work Phone: [facility] 09-07-2024 13:39-0400 Body weight 66.9 kg Bradford Love APRON WORKER.EDGE CUTTING MACHINE OPERATOR Work Phone: [facility] 09-07-2024 13:39-0400 Respiratory rate 16 /min Bradford Love APRON WORKER.EDGE CUTTING MACHINE OPERATOR Work Phone: [facility] 08-30-2024 09:30-0400 Body temperature 97.9 [degF] Dr. Ruddy Cooper MD Work Phone: [facility] 08-30-2024 09:30-0400 Diastolic blood pressure 82 mm[Hg] Dr. Ruddy Cooper MD Work Phone: [facility] 08-30-2024 09:30-0400 Heart rate 95 /min Dr. Ruddy Cooper MD Work Phone: [facility] 08-30-2024 09:30-0400 Respiratory rate 17 /min Dr. Ruddy Cooper MD Work Phone: [facility] 08-30-2024 09:30-0400 SaO2% (BldA) [Mass fraction] 97 % Dr. Ruddy Cooper MD Work Phone: [facility] 08-30-2024 09:30-0400 Systolic blood pressure 134 mm[Hg] Dr. Ruddy Cooper MD Work Phone: [facility] 08-30-2024 06:00-0400 Body mass index (BMI) [Ratio] 26.4 kg/m2 Dr. Ruddy Cooper MD Work Phone: [facility] 08-30-2024 06:00-0400 Body weight 67.[address] Ruddy Cooper MD Work Phone: [facility] 08-16-2024 12:31-0400 Body mass index (BMI) [Ratio] 26.75 kg/m2 Khris Salinas MD Work Phone: [facility] 08-16-2024 12:31-0400 Body weight 68.49 kg Khris Salinas MD Work Phone: [facility] 08-16-2024 12:31-0400 Diastolic blood pressure 72 mm[Hg] Khris Salinas MD Work Phone: [facility] 08-16-2024 12:31-0400 Heart rate 97 /min Khris Salinas MD Work Phone: [facility] 08-16-2024 12:31-0400 Systolic blood pressure 113 mm[Hg] Khris Salinas MD Work Phone: [facility] 08-09-2024 13:00-0400 Body mass index (BMI) [Ratio] 26.87 kg/m2 Zafar Clutter PA-C Work Phone: [facility] 08-09-2024 13:00-0400 Body temperature 98.49 [degF] Zafar Clutter PA-C Work Phone: [facility] 08-09-2024 13:00-0400 Body weight 68.8 kg Zafar Clutter PA-C Work Phone: [facility] 08-09-2024 13:00-0400 Diastolic blood pressure 80 mm[Hg] Zafar Clutter PA-C Work Phone: [facility] 08-09-2024 13:00-0400 Heart rate 72 /min Zafar Clutter PA-C Work Phone: [facility] 08-09-2024 13:00-0400 Respiratory rate 18 /min Zafar Clutter PA-C Work Phone: [facility] 08-09-2024 13:00-0400 Systolic blood pressure 126 mm[Hg] Zafar Clutter PA-C Work Phone: [facility] 06-21-2024 10:54-0500 Body mass index (BMI) [Ratio] 26.56 kg/m2 Bradford Love APRON WORKER.EDGE CUTTING MACHINE OPERATOR Work Phone: [facility] 06-21-2024 10:54-0500 Body weight 68 kg Bradford Love APRON WORKER.EDGE CUTTING MACHINE OPERATOR Work Phone: [facility] 06-21-2024 10:54-0500 Diastolic blood pressure 73 mm[Hg] Bradford Love APRON WORKER.EDGE CUTTING MACHINE OPERATOR Work Phone: [facility] 06-21-2024 10:54-0500 Heart rate 101 /min Bradford Love APRON WORKER.EDGE CUTTING MACHINE OPERATOR Work Phone: [facility] 06-21-2024 10:54-0500 Respiratory rate 16 /min Bradford Love APRON WORKER.EDGE CUTTING MACHINE OPERATOR Work Phone: [facility] 06-21-2024 10:54-0500 Systolic blood pressure 109 mm[Hg] Bradford Love APRON WORKER.EDGE CUTTING MACHINE OPERATOR Work Phone: [facility] 02-26-2024 12:39-0400 Body mass index (BMI) [Ratio] 26.4 kg/m2 Ruddy Cooper MD Work Phone: [facility] 02-26-2024 12:39-0400 Body weight 67.6 kg Ruddy Cooper MD Work Phone: [facility] 02-26-2024 12:39-0400 Diastolic blood pressure 78 mm[Hg] Ruddy Cooper MD Work Phone: [facility] 02-26-2024 12:39-0400 Heart rate 87 /min Ruddy Cooper MD Work Phone: [facility] 02-26-2024 12:39-0400 SaO2% (BldA) [Mass fraction] 97 % Ruddy Cooper MD Work Phone: [facility] 02-26-2024 12:39-0400 Systolic blood pressure 110 mm[Hg] Ruddy Cooper MD Work Phone: [facility] 02-25-2024 12:48-0400 Body mass index (BMI) [Ratio] 26.48 kg/m2 Raphael Perdomo APRON WORKER.FRENCH TRANSLATOR Work Phone: [facility] 02-25-2024 12:48-0400 Body temperature 97.3 [degF] Raphael Perdomo APRON WORKER.FRENCH TRANSLATOR Work Phone: [facility] 02-25-2024 12:48-0400 Body weight 67.8 kg Raphael Perdomo APRON WORKER.FRENCH TRANSLATOR Work Phone: [facility] 02-25-2024 12:48-0400 Diastolic blood pressure 80 mm[Hg] Raphael Riddleenter APRON WORKER.FRENCH TRANSLATOR Work Phone: [facility] 02-25-2024 12:48-0400 Heart rate 99 /min Raphael Perdomo APRON WORKER.FRENCH TRANSLATOR Work Phone: [facility] 02-25-2024 12:48-0400 SaO2% (BldA) [Mass fraction] 96 % Raphael Perdomo APRON WORKER.FRENCH TRANSLATOR Work Phone: [facility] 02-25-2024 12:48-0400 Systolic blood pressure 120 mm[Hg] Raphael Predomo APRON WORKER.FRENCH TRANSLATOR Work Phone: [facility] 12-19-2023 11:05-0400 Body mass index (BMI) [Ratio] 26.44 kg/m2 Bradford Love APRON WORKER.EDGE CUTTING MACHINE OPERATOR Work Phone: [facility] 12-19-2023 11:05-0400 Body weight 67.7 kg Bradford Love APRON WORKER.EDGE CUTTING MACHINE OPERATOR Work Phone: [facility] 12-19-2023 11:05-0400 Diastolic blood pressure 71 mm[Hg] Bradford Love APRON WORKER.EDGE CUTTING MACHINE OPERATOR Work Phone: [facility] 12-19-2023 11:05-0400 Heart rate 87 /min Bradford Love APRON WORKER.EDGE CUTTING MACHINE OPERATOR Work Phone: [facility] 12-19-2023 11:05-0400 Respiratory rate 16 /min Bradford Love APRON WORKER.EDGE CUTTING MACHINE OPERATOR Work Phone: [facility] 12-19-2023 11:05-0400 Systolic blood pressure 118 mm[Hg] Bradford Love APRON WORKER.EDGE CUTTING MACHINE OPERATOR Work Phone: [facility] 12-10-2023 14:46-0400 Body mass index (BMI) [Ratio] 26.48 kg/m2 Ruddy Cooper MD Work Phone: [facility] 12-10-2023 14:46-0400 Body temperature 97.3 [degF] Ruddy Cooper MD Work Phone: [facility] 12-10-2023 14:46-0400 Body weight 67.8 kg Ruddy Cooper MD Work Phone: [facility] 12-10-2023 14:46-0400 Diastolic blood pressure 82 mm[Hg] Ruddy Cooper MD Work Phone: [facility] 12-10-2023 14:46-0400 Heart rate 72 /min Ruddy Cooper MD Work Phone: [facility] 12-10-2023 14:46-0400 Respiratory rate 16 /min Ruddy Cooper MD Work Phone: [facility] 12-10-2023 14:46-0400 SaO2% (BldA) [Mass fraction] 96 % Ruddy Cooper MD Work Phone: [facility] 12-10-2023 14:46-0400 Systolic blood pressure 126 mm[Hg] Ruddy Cooper MD Work Phone: [facility] 10-22-2023 12:00-0400 Heart rate 100 /min Charleen Rocha PT [facility] Comment on above: after walking 10-22-2023 12:00-0400 SaO2% (BldA) [Mass fraction] 99 % Charleen Rocha PT [facility] 10-20-2023 15:00-0400 SaO2% (BldA) [Mass fraction] 98 % Charleen Rocha PT [facility] 10-14-2023 12:00-0400 Body mass index (BMI) [Ratio] 26.56 kg/m2 Ruiz Serrato APRON WORKER.FRENCH TRANSLATOR Work Phone: [facility] 10-14-2023 12:00-0400 Body temperature 97.59 [degF] Ruiz Serrato APRON WORKER.FRENCH TRANSLATOR Work Phone: [facility] 10-14-2023 12:00-0400 Body weight 68 kg Ruiz Serrato APRON WORKER.FRENCH TRANSLATOR Work Phone: [facility] 10-14-2023 12:00-0400 Diastolic blood pressure 79 mm[Hg] Ruiz Serrato APRON WORKER.FRENCH TRANSLATOR Work Phone: [facility] 10-14-2023 12:00-0400 Heart rate 105 /min Ruiz Serrato APRON WORKER.FRENCH TRANSLATOR Work Phone: [facility] 10-14-2023 12:00-0400 Respiratory rate 18 /min Ruiz Serrato APRON WORKER.FRENCH TRANSLATOR Work Phone: [facility] 10-14-2023 12:00-0400 SaO2% (BldA) [Mass fraction] 100 % Ruiz Serrato APRON WORKER.FRENCH TRANSLATOR Work Phone: [facility] 10-14-2023 12:00-0400 Systolic blood pressure 117 mm[Hg] Ruiz Serrato APRON WORKER.FRENCH TRANSLATOR Work Phone: [facility] 09-10-2023 13:20-0400 Body mass index (BMI) [Ratio] 26.75 kg/m2 Raphael Perdomo APRON WORKER.FRENCH TRANSLATOR Work Phone: [facility] 09-10-2023 13:20-0400 Body temperature 97.7 [degF] Raphael Perdomo APRON WORKER.FRENCH TRANSLATOR Work Phone: [facility] 09-10-2023 13:20-0400 Body weight 68.49 kg Raphael Perdomo APRON WORKER.FRENCH TRANSLATOR Work Phone: [facility] 09-10-2023 13:20-0400 Diastolic blood pressure 87 mm[Hg] [place] Perdomo APRON WORKER.FRENCH TRANSLATOR Work Phone: [facility] 09-10-2023 13:20-0400 Heart rate 100 /min Raphael Perdomo APRON WORKER.FRENCH TRANSLATOR Work Phone: [facility] 09-10-2023 13:20-0400 SaO2% (BldA) [Mass fraction] 96 % Raphael Perdomo APRON WORKER.FRENCH TRANSLATOR Work Phone: [facility] 09-10-2023 13:20-0400 Systolic blood pressure 125 mm[Hg] [place] Perdomo APRON WORKER.FRENCH TRANSLATOR Work Phone: [facility] 09-08-2023 13:19-0400 Body mass index (BMI) [Ratio] 26.75 kg/m2 Bradford Love APRON WORKER.EDGE CUTTING MACHINE OPERATOR Work Phone: [facility] 09-08-2023 13:19-0400 Body weight 68.49 kg Bradford Love APRON WORKER.EDGE CUTTING MACHINE OPERATOR Work Phone: [facility] 09-08-2023 13:19-0400 Diastolic blood pressure 85 mm[Hg] Bradford Love APRON WORKER.EDGE CUTTING MACHINE OPERATOR Work Phone: [facility] 09-08-2023 13:19-0400 Heart rate 108 /min Bradford Love APRON WORKER.EDGE CUTTING MACHINE OPERATOR Work Phone: [facility] 09-08-2023 13:19-0400 Respiratory rate 16 /min Bradford Love APRON WORKER.EDGE CUTTING MACHINE OPERATOR Work Phone: [facility] 09-08-2023 13:19-0400 Systolic blood pressure 132 mm[Hg] Bradford Love APRON WORKER.EDGE CUTTING MACHINE OPERATOR Work Phone: [facility] 09-05-2023 16:38-0400 Body mass index (BMI) [Ratio] 26.75 kg/m2 Ruddy Cooper MD Work Phone: [facility] 09-05-2023 16:38-0400 Body temperature 97.9 [degF] Ruddy Cooper MD Work Phone: [facility] 09-05-2023 16:38-0400 Body weight 68.49 kg Ruddy Cooper MD Work Phone: [facility] 09-05-2023 16:38-0400 Diastolic blood pressure 72 mm[Hg] Ruddy Cooper MD Work Phone: [facility] 09-05-2023 16:38-0400 Heart rate 103 /min Ruddy Cooper MD Work Phone: [facility] 09-05-2023 16:38-0400 Respiratory rate 18 /min Ruddy Cooper MD Work Phone: [facility] 09-05-2023 16:38-0400 SaO2% (BldA) [Mass fraction] 99 % Ruddy Cooper MD Work Phone: [facility] 09-05-2023 16:38-0400 Systolic blood pressure 124 mm[Hg] Ruddy Cooper MD Work Phone: [facility] 05-26-2023 15:39-0500 Body weight 69.4 kg Ruddy Cooper MD Work Phone: [facility] 05-26-2023 15:39-0500 Diastolic blood pressure 80 mm[Hg] Ruddy Cooper MD Work Phone: [facility] 05-26-2023 15:39-0500 Heart rate 74 /min Ruddy Cooper MD Work Phone: [facility] 05-26-2023 15:39-0500 Respiratory rate 16 /min Ruddy Cooper MD Work Phone: [facility] 05-26-2023 15:39-0500 Systolic blood pressure 122 mm[Hg] Ruddy Cooper MD Work Phone: [facility] 04-03-2023 14:02-0500 Body temperature 97.39 [degF] Raphael Perdomo APRON WORKER.FRENCH TRANSLATOR Work Phone: [facility] 04-03-2023 14:02-0500 Body weight 68.95 kg Raphael Perdomo APRON WORKER.FRENCH TRANSLATOR Work Phone: [facility] 04-03-2023 14:02-0500 Diastolic blood pressure 76 mm[Hg] [place] Perdomo APRON WORKER.FRENCH TRANSLATOR Work Phone: [facility] 04-03-2023 14:02-0500 Heart rate 77 /min [place] Perdomo APRON WORKER.FRENCH TRANSLATOR Work Phone: [facility] 04-03-2023 14:02-0500 Systolic blood pressure 123 mm[Hg] [place] Perdomo APRON WORKER.FRENCH TRANSLATOR Work Phone: [facility] 12-24-2022 09:18-0400 Body height 160 cm Sheela VELA-C Work Phone: [facility] 12-24-2022 09:18-0400 Body weight 66.68 kg Sheela Celeste PA-C Work Phone: [facility] 10-18-2022 13:22-0400 Body weight 68.95 kg Bradford Love APRON WORKER.EDGE CUTTING MACHINE OPERATOR Work Phone: [facility] 10-18-2022 13:22-0400 Diastolic blood pressure 70 mm[Hg] Bradford Love APRON WORKER.EDGE CUTTING MACHINE OPERATOR Work Phone: [facility] 10-18-2022 13:22-0400 Heart rate 96 /min Bradford Love APRON WORKER.EDGE CUTTING MACHINE OPERATOR Work Phone: [facility] 10-18-2022 13:22-0400 Respiratory rate 16 /min Bradford Love APRON WORKER.EDGE CUTTING MACHINE OPERATOR Work Phone: [facility] 10-18-2022 13:22-0400 Systolic blood pressure 114 mm[Hg] Bradford Love APRON WORKER.EDGE CUTTING MACHINE OPERATOR Work Phone: [facility] 06-27-2022 11:17-0500 Body weight 66.22 kg Bradford Love APRON WORKER.EDGE CUTTING MACHINE OPERATOR Work Phone: [facility] 06-27-2022 11:17-0500 Diastolic blood pressure 70 mm[Hg] Bradford Love APRON WORKER.EDGE CUTTING MACHINE OPERATOR Work Phone: [facility] 06-27-2022 11:17-0500 Heart rate 97 /min Bradford Love APRON WORKER.EDGE CUTTING MACHINE OPERATOR Work Phone: [facility] 06-27-2022 11:17-0500 Respiratory rate 16 /min Bradford Love APRON WORKER.EDGE CUTTING MACHINE OPERATOR Work Phone: [facility] 06-27-2022 11:17-0500 SaO2% (BldA) [Mass fraction] 97 % Bradford Love APRON WORKER.EDGE CUTTING MACHINE OPERATOR Work Phone: [facility] 06-27-2022 11:17-0500 Systolic blood pressure 110 mm[Hg] Bradford Love APRON WORKER.EDGE CUTTING MACHINE OPERATOR Work Phone: [facility] 05-24-2022 12:38-0500 Body height 160.7 cm [place] Perdomo APRON WORKER.FRENCH TRANSLATOR Work Phone: [facility] 05-24-2022 12:38-0500 Body temperature 97 [degF] Raphael Perdomo APRON WORKER.FRENCH TRANSLATOR Work Phone: [facility] 05-24-2022 12:38-0500 Body weight 65.32 kg Raphael Perdomo APRON WORKER.FRENCH TRANSLATOR Work Phone: [facility] 05-24-2022 12:38-0500 Diastolic blood pressure 71 mm[Hg] Raphael Perdomo APRON WORKER.FRENCH TRANSLATOR Work Phone: [facility] 05-24-2022 12:38-0500 Heart rate 106 /min [place] Perdomo APRON WORKER.FRENCH TRANSLATOR Work Phone: [facility] 05-24-2022 12:38-0500 Systolic blood pressure 104 mm[Hg] [place] Perdomo APRON WORKER.FRENCH TRANSLATOR Work Phone: [facility] 04-18-2022 11:00-0500 Body temperature 97.11 [degF] Treatment Wstr Work Phone: [facility] 04-18-2022 11:00-0500 Diastolic blood pressure 69 mm[Hg] Treatment Wstr Work Phone: [facility] 04-18-2022 11:00-0500 Heart rate 100 /min Treatment Wstr Work Phone: [facility] 04-18-2022 11:00-0500 Systolic blood pressure 118 mm[Hg] Treatment Wstr Work Phone: [facility] 03-28-2022 13:50-0500 Body weight 63.5 kg Bradford Love APRON WORKER.EDGE CUTTING MACHINE OPERATOR Work Phone: [facility] 03-28-2022 13:50-0500 Diastolic blood pressure 68 mm[Hg] Bradford Love APRON WORKER.EDGE CUTTING MACHINE OPERATOR Work Phone: [facility] 03-28-2022 13:50-0500 Heart rate 106 /min Bradford Love APRON WORKER.EDGE CUTTING MACHINE OPERATOR Work Phone: [facility] 03-28-2022 13:50-0500 Respiratory rate 16 /min Bradford Love APRON WORKER.EDGE CUTTING MACHINE OPERATOR Work Phone: [facility] 03-28-2022 13:50-0500 SaO2% (BldA) [Mass fraction] 100 % Bradford Love APRON WORKER.EDGE CUTTING MACHINE OPERATOR Work Phone: [facility] 03-28-2022 13:50-0500 Systolic blood pressure 104 mm[Hg] Bradford Love APRON WORKER.EDGE CUTTING MACHINE OPERATOR Work Phone: [facility] 11-29-2021 09:35-0400 Body height 161.3 cm Sheela VELA-C Work Phone: [facility] 11-29-2021 09:35-0400 Body weight 63.5 kg Sheela Celeste PA-C Work Phone: [facility] 11-21-2021 13:25-0400 Body height 162 cm Raphael Perdomo APRON WORKER.FRENCH TRANSLATOR Work Phone: [facility] 11-21-2021 13:25-0400 Body temperature 97.81 [degF] Raphael Riddleenter APRON WORKER.FRENCH TRANSLATOR Work Phone: [facility] 11-21-2021 13:25-0400 Body weight 63.5 kg Raphael Perdomo APRON WORKER.FRENCH TRANSLATOR Work Phone: [facility] 11-21-2021 13:25-0400 Diastolic blood pressure 81 mm[Hg] Raphael Perdomo APRON WORKER.FRENCH TRANSLATOR Work Phone: [facility] 11-21-2021 13:25-0400 Heart rate 106 /min Raphael Perdomo APRON WORKER.FRENCH TRANSLATOR Work Phone: [facility] 11-21-2021 13:25-0400 SaO2% (BldA) [Mass fraction] 96 % Raphael Riddleenter APRON WORKER.FRENCH TRANSLATOR Work Phone: [facility] 11-21-2021 13:25-0400 Systolic blood pressure 121 mm[Hg] Raphael Riddleenter APRON WORKER.FRENCH TRANSLATOR Work Phone: [facility] 10-23-2021 11:00-0400 Body temperature 97 [degF] Treatment Wstr Work Phone: [facility] 10-23-2021 11:00-0400 Diastolic blood pressure 66 mm[Hg] Treatment Wstr Work Phone: [facility] 10-23-2021 11:00-0400 Heart rate 94 /min Treatment Wstr Work Phone: [facility] 10-23-2021 11:00-0400 Respiratory rate 16 /min Treatment Wstr Work Phone: [facility] 10-23-2021 11:00-0400 SaO2% (BldA) [Mass fraction] 99 % Treatment Wstr Work Phone: [facility] 10-23-2021 11:00-0400 Systolic blood pressure 116 mm[Hg] Treatment Wstr Work Phone: [facility] 10-17-2021 09:14-0400 Body weight 63.05 kg Ruddy Cooper MD Work Phone: [facility] 10-17-2021 09:14-0400 Diastolic blood pressure 64 mm[Hg] Ruddy Cooper MD Work Phone: [facility] 10-17-2021 09:14-0400 Heart rate 90 /min Ruddy Cooper MD Work Phone: [facility] 10-17-2021 09:14-0400 SaO2% (BldA) [Mass fraction] 100 % Ruddy Cooper MD Work Phone: [facility] 10-17-2021 09:14-0400 Systolic blood pressure 122 mm[Hg] Ruddy Cooper MD Work Phone: [facility] 10-08-2021 12:10-0400 Body temperature 97.3 [degF] [facility] APRON WORKER.FRENCH TRANSLATOR Work Phone: [facility] 10-08-2021 12:10-0400 Body weight 63.78 kg [facility] APRON WORKER.FRENCH TRANSLATOR Work Phone: [facility] 10-08-2021 12:10-0400 Diastolic blood pressure 70 mm[Hg] [facility] APRON WORKER.FRENCH TRANSLATOR Work Phone: [facility] 10-08-2021 12:10-0400 Heart rate 103 /min [facility] APRON WORKER.FRENCH TRANSLATOR Work Phone: [facility] 10-08-2021 12:10-0400 Respiratory rate 20 /min [facility] APRON WORKER.FRENCH TRANSLATOR Work Phone: [facility] 10-08-2021 12:10-0400 SaO2% (BldA) [Mass fraction] 99 % [facility] APRON WORKER.FRENCH TRANSLATOR Work Phone: [facility] 10-08-2021 12:10-0400 Systolic blood pressure 96 mm[Hg] [facility] APRON WORKER.FRENCH TRANSLATOR Work Phone: [facility] 08-31-2021 16:38-0400 Body temperature 97.7 [degF] [facility] Work Phone: 08-31-2021 16:38-0400 Diastolic blood pressure 81 mm[Hg] [facility] Work Phone: 08-31-2021 16:38-0400 Heart rate 83 /min [facility] Work Phone: 08-31-2021 16:38-0400 Respiratory rate 18 /min [facility] Work Phone: 08-31-2021 16:38-0400 SaO2% (BldA) [Mass fraction] 98 % [facility] Work Phone: 08-31-2021 16:38-0400 Systolic blood pressure 106 mm[Hg] [facility] Work Phone: 08-31-2021 13:17-0400 Body height 161.01 cm [facility] Work Phone: 08-31-2021 13:17-0400 Body mass index (BMI) [Ratio] 24.8 kg/m2 [facility] Work Phone: 08-31-2021 13:17-0400 Body weight 64.35 kg [facility] Work Phone: Encounters Encounter Date Encounter Type Care Provider Facility Start: 10-02-2024 End: 10-05-2024 ambulatory Bradford Love APRN.EDGE CUTTING MACHINE OPERATOR Work Phone: [facility] [place] Comment on above: Judi Wright [birth year] 4 visit Start: 09-22-2024 End: 09-22-2024 [facility] [place] Start: 09-22-2024 End: 09-22-2024 [facility] encounter [facility] [place] Comment on above: Population Health Na vigation Outreach ([facility] - [facility] ) Start: 09-14-2024 End: 09-14-2024 ambulatory [facility] Facility:[facility] Start: 09-08-2024 End: 09-09-2024 Emergency department patient visit Dr. Ruddy Cooper MD Work Phone: -Emergency Department Work Phone: Start: 09-08-2024 End: 09-08-2024 Telephone encounter Salome ESQUIVEL Navigation Start: 09-07-2024 End: 09-07-2024 Office outpatient visit 25 minutes Bradford Love SHAHID.EDGE CUTTING MACHINE OPERATOR Work Phone: [facility] [place] Comment on above: Frequent falls (Prim gilberto Dx); Failure to thrive in adult; Dementia with other behavioral disturbance, unspecified dementia severity, unspecified dementia type (HCC); Primary hypertension; Urinary tract infection without hematuria, site unspecified; Type 2 diabetes mellitus with diabetic neuropathy, without long-term current use of insulin (HCC); 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) Start: 09-07-2024 End: 09-07-2024 ambulatory BRADFORD LOVE Facility:[facility] Start: 09-05-2024 End: 09-07-2024 ambulatory Ruddy Cooper MD Work Phone: [facility] [place] Comment on above: Judi's current ment al state Start: 09-01-2024 End: 09-01-2024 Patient Outreach Lamar De Leon RN Work Phone: [facility] Comment on above: Transition Of Care I nitial phone contact for Transitional Care Management Started Weekly phone contact (Recurring) for Transitional Care Management Start: 08-30-2024 Non-patient / Non-visit Dr. Jose rees [facility] Work Phone: Start: 08-29-2024 Non-patient / Non-visit Dr. Liu CAPPS [facility] Work Phone: Start: 08-28-2024 Non-patient / Non-visit Dr. Liu [facility] Work Phone: Start: 08-27-2024 Non-patient / Non-visit Dr. Liu [facility] Work Phone: Start: 08-26-2024 End: 08-26-2024 Telephone encounter Raphael Perdomo APRN.FRENCH TRANSLATOR Work Phone: Hematology/Oncology Comment on above: Patient [...] Ruddy Cooper MD Work Phone: [facility] [place] Comment on above: Urine test Start: 08-17-2024 [...] Start: 08-16-2024 End: 08-16-2024 ambulatory KHRIS SALINAS Facility:[facility] Start: 08-11-2024 End: 08-11-2024 ambulatory Ruddy Cooper MD Work Phone: [facility] [place] Comment on above: Preventative UTI Barb trum Dose Start: 08-09-2024 End: 08-09-2024 ambulatory Raphael Perdomo APRON WORKER.FRENCH TRANSLATOR Work Phone: Hematology/Oncology Comment on above: Judi Krause appt. M ay 1 Start: 08-09-2024 End: 08-09-2024 Office outpatient new 30 minutes Zafar Brown PA-C [facility] Comment on above: Urinary frequency (P rimary Dx); Acute UTI Start: 08-08-2024 End: 08-09-2024 ambulatory Raphael Perodmo APRON WORKER.FRENCH TRANSLATOR Work Phone: Hematology/Oncology Comment on above: Judi Krause 08/26/24 appt. Start: 08-03-2024 End: 08-03-2024 Telephone encounter Salome Perez MSW Navigation Start: 07-21-2024 End: 07-21-2024 Telephone encounter Zafar Jones MD Work Phone: [facility] Comment on above: Patient Question Start: 06-29-2024 End: 08-29-2024 Follow-up encounter Bradford Love APRN.EDGE CUTTING MACHINE OPERATOR Work Phone: [facility] [place] Start: 06-25-2024 End: 06-28-2024 Telephone encounter Salome Perez LIMNOLOGIST Navigation Start: 06-22-2024 End: 06-22-2024 ambulatory RUDDY COOPER Facility:[facility] Start: 06-22-2024 End: 06-22-2024 Nursing evaluation of patient and report Norris Young RN Work Phone: Endocrinology Comment on above: Type 2 diabetes lona itus with diabetic neuropathy, without long-term current use of insulin (HCC) (Primary Dx) Start: 06-21-2024 End: 06-23-2024 Telephone encounter Bradford Love APRN.EDGE CUTTING MACHINE OPERATOR Work Phone: Diabetic Education [facility] Comment on above: Orders Future Appointment ( Reestablish Care JUAN Jones) Start: 06-21-2024 End: 06-22-2024 ambulatory Bradford Love APRN.EDGE CUTTING MACHINE OPERATOR Work Phone: [facility] [place] Comment on above: Question about my mo ther Judi Toya Start: 06-21-2024 End: 06-21-2024 Office outpatient visit 25 minutes Bradford Love APRN.EDGE CUTTING MACHINE OPERATOR Work Phone: [facility] [place] Comment on above: Primary hypertension (Primary Dx); Type 2 diabetes mellitus with diabetic neuropathy, without long-term current use of insulin (HCC); Arthritis of hand; Vitamin D deficiency; Encounter for screening mammogram for breast cancer Start: 06-18-2024 End: 06-18-2024 ambulatory BRADFORD LOVE Facility:[facility] Start: 03-15-2024 End: 03-15-2024 [facility] Start: 03-02-2024 End: 03-02-2024 ambulatory Monae Ch RN Work Phone: [facility] Start: 03-02-2024 End: 03-02-2024 Patient encounter procedure Monae Ch RN Work Phone: [facility] Comment on above: JENNIFER MEMBRENO RN ( ED Utilization Review per request of payor/) Start: 02-27-2024 End: 02-27-2024 Emergency department patient visit Ruddy Maria Alejandra Cooper Facility:[facility] Start: 02-26-2024 End: 02-26-2024 ambulatory RUDDY Maria Alejandra [facility] Facility:[facility] Start: 02-26-2024 End: 02-26-2024 [facility] Comment on above: Arthritis of hand [M 19.049] Start: 02-26-2024 End: 02-26-2024 ambulatory [facility] Facility:[facility] Start: 02-26-2024 End: 02-26-2024 Office [...] Ruddy Cooper MD Work Phone: [facility] [place] Comment on above: Patient Question Start: 01-27-2024 End: 01-27-2024 ambulatory Charleen O'Casper PT [facility] Comment on above: Complaints of leg we akness (Primary Dx); Gait difficulty Start: 01-20-2024 End: 01-20-2024 ambulatory Charleen O'Casper PT [facility] Comment on above: Complaints of leg we akness (Primary Dx); Gait difficulty Start: 01-13-2024 End: 01-13-2024 ambulatory Charleen O'Casper PT [facility] Comment on above: Complaints of leg we akness (Primary Dx); Gait difficulty Start: 01-07-2024 End: 01-08-2024 Documentation procedure Mammography Coordinator [facility] Department Start: 01-07-2024 End: 01-08-2024 Letter encounter Mammography Coordinator [facility] Department Start: 01-07-2024 End: 01-08-2024 Telephone encounter Raphael Perdomo APRN.CNP Work Phone: Hematology/Oncology Comment on above: Patient Update Start: 01-06-2024 End: 01-06-2024 ambulatory Charleen O'Casper [facility] Comment on above: Complaints of leg we akness (Primary Dx); Gait difficulty Start: 01-06-2024 End: 01-06-2024 Subsequent hospital visit by physician Screen Mammo [facility] Mammogram Comment on above: Screening mammogram for breast cancer [Z12.31] Start: 01-02-2024 End: 01-02-2024 ambulatory [facility] Facility:[facility] Start: 01-01-2024 End: 01-01-2024 Telephone encounter Wesly Sepulveda APRN.CNP Work Phone: [facility] Comment on above: Appointment Orders Start: 12-22-2023 End: 12-24-2023 Telephone encounter Ruddy Cooper MD Work Phone: [facility] [place] Comment on above: requesting med alert rx Medication Problem Start: 12-19-2023 End: 12-19-2023 Telephone encounter Ruddy Cooper MD Work Phone: Internal Medicine [place] Comment on above: Patient Update Start: 12-19-2023 End: 12-19-2023 ambulatory [facility] Facility:[facility] Start: 12-19-2023 End: 12-19-2023 Office outpatient visit 25 minutes Bradford Love APRN.EDGE CUTTING MACHINE OPERATOR Work Phone: Internal Medicine [place] Comment on above: Hypertension (Primar y Dx); Syncope, unspecified syncope type; Type 2 diabetes mellitus with diabetic neuropathy, without long-term current use of insulin ([facility]); Screening for diabetic retinopathy; Encounter for immunization; Tinnitus of both ears; 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); Complaints of leg weakness Start: 12-16-2023 End: 12-16-2023 ambulatory Charleen O'Casper PT [facility] Comment on above: Complaints of leg we akness (Primary Dx); Gait difficulty Start: 12-10-2023 End: 12-10-2023 Patient encounter procedure Ruddy Cooper MD Work Phone: Internal Medicine [place] Comment on above: Patient left without being seen (Primary Dx) Start: 12-10-2023 End: 12-10-2023 ambulatory RUDDY COOPER Facility:[facility] Start: 12-09-2023 End: 12-09-2023 ambulatory [facility] Facility:[facility] Start: 12-08-2023 End: 12-08-2023 ambulatory Charleen O'Casper PT [place] [facility] Comment on above: Complaints of leg we akness (Primary Dx); Gait difficulty Start: 11-26-2023 End: 11-26-2023 ambulatory Charleen O'Casper PT [facility] Comment on above: Complaints of leg we akness (Primary Dx); Gait difficulty Start: 11-25-2023 Refill Polo Abdullahi Work Phone: Hematology/Oncology Comment on above: Refill Request Start: 11-25-2023 Telephone encounter Bradford Vishal walker APRN.EDGE CUTTING MACHINE OPERATOR Work Phone: [facility] Comment on above: Medication Question Start: 11-24-2023 End: 11-24-2023 ambulatory Charleen O'Casper PT [facility] Comment on above: Complaints of leg we akness (Primary Dx); Gait difficulty Start: 11-19-2023 End: 11-19-2023 ambulatory Charleen O'Casper PT [facility] Comment on above: Complaints of leg we akness (Primary Dx); Gait difficulty Start: 11-17-2023 End: 11-17-2023 ambulatory Charleen O'Casper PT [facility] Comment on above: Complaints of leg we akness (Primary Dx); Gait difficulty Start: 11-10-2023 End: 11-10-2023 ambulatory Marissa Lobato DIRECTOR UNIVERSITY Work Phone: [facility] Comment on above: Complaints of leg we akness (Primary Dx); Gait difficulty Start: 11-06-2023 End: 11-06-2023 ambulatory Charleen O'Casper PT [facility] Comment on above: Complaints of leg we akness (Primary Dx); Gait difficulty Start: 11-03-2023 End: 11-03-2023 ambulatory Charleen O'Casper PT [facility] Comment on above: Complaints of leg we akness (Primary Dx); Gait difficulty Start: 10-29-2023 End: 10-29-2023 ambulatory Charleen O'Casper PT [facility] Comment on above: Complaints of leg we akness (Primary Dx); Gait difficulty Start: 10-27-2023 End: 10-27-2023 ambulatory Charleen O'Casper PT [facility] Comment on above: Complaints of leg we akness (Primary Dx); Gait difficulty Start: 10-22-2023 Telephone encounter Ruddy almeida MD Work Phone: [facility] Comment on above: Concerned for pt-see note; Vomiting; Shortness of Breath Start: 10-22-2023 End: 10-22-2023 ambulatory Charleen O'Casper PT [facility] Comment on above: Complaints of leg we akness (Primary Dx); Gait difficulty Start: 10-20-2023 End: 10-20-2023 ambulatory Charleen O'Casper PT [facility] Comment on above: Complaints of leg we akness (Primary Dx); Gait difficulty Start: 10-14-2023 End: 10-14-2023 Subsequent hospital visit by physician Xr [facility] Work Phone: Radiology Comment on above: Acute left ankle jose luis n [M25.572] Start: 10-14-2023 End: 10-14-2023 ambulatory RUDDY COOPER Facility:[facility] Start: 10-14-2023 End: 10-14-2023 Office outpatient visit 15 minutes Ruiz Serrato APRN.FRENCH TRANSLATOR Work Phone: [facility] Comment on above: Acute left ankle jose luis n (Primary Dx); Foot pain, left Start: 10-02-2023 Telephone encounter Ruddy almeida MD Work Phone: Internal Medicine [place] Comment on above: Results Start: 09-29-2023 End: 09-29-2023 ambulatory Charleen O'Casper PT [facility] Comment on above: Gait difficulty (Monica tosha Dx); Complaints of leg weakness Start: 09-26-2023 End: 09-26-2023 Subsequent hospital visit by physician [facility] (I-Stat) Work Phone: Cat Scan Comment on above: History of abdominal surgery [Z98.890] Start: 09-15-2023 Refill Bradford Love APRN.CNS Work Phone: Internal Medicine [place] Comment on above: Refill Request Start: 09-10-2023 End: 09-10-2023 ambulatory Treatment Rm 13 [place] [facility] Work Phone: Hematology/Oncology Comment on above: Osteoporosis, unspec ified (Primary Dx) Invasive ductal carc inoma of breast, left (HCC) (Primary Dx); Ductal carcinoma in situ (DCIS) of right breast Start: 09-10-2023 End: 09-10-2023 Patient encounter procedure Raphael Perdomo APRON WORKER.FRENCH TRANSLATOR Work Phone: Hematology/Oncology Start: 09-08-2023 End: 09-08-2023 Office outpatient visit 25 minutes Bradford Love APRN.EDGE CUTTING MACHINE OPERATOR Work Phone: Internal Medicine [place] Comment on above: Screening for diabet ic [...] Ruddy almeida MD Work Phone: Internal Medicine [place] Comment on above: results Start: 05-26-2023 End: [...] Start: 04-03-2023 End: 04-03-2023 ambulatory Raphael Perdomo APRON WORKER.FRENCH TRANSLATOR Work Phone: Hematology/Oncology Comment on above: Invasive ductal carc inoma of breast, left (HCC) (Primary Dx); Ductal carcinoma in situ (DCIS) of right breast Start: 04-03-2023 End: 04-03-2023 Patient encounter procedure Raphael Perdomo APRN.FRENCH TRANSLATOR Work Phone: [place] [facility] Start: 03-11-2023 Telephone encounter Zafar simmons MD Work Phone: [facility] Comment on above: Results Start: 02-27-2023 End: 02-27-2023 Subsequent hospital visit by physician Mri Radio [facility] (I-Stat/1.5t) Work Phone: Radiology Comment on above: Intracranial aneurys m [I67.1] Start: 02-26-2023 Telephone encounter Ruddy almeida MD Work Phone: [facility] [place] Comment on above: Appointment Start: 01-03-2023 End: 01-03-2023 Subsequent hospital visit by physician Diagnostic Mammo [facility] Stro Mammography Comment on above: Bilateral fibrocysti c breast changes [N60.11, N60.12] Start: 12-24-2022 End: 12-24-2022 Patient encounter procedure Sheela Celeste PA-C Work Phone: [facility] Comment on above: Bilateral fibrocysti c [...] Orders Only Sheela Celeste PA-C Work Phone: [facility] Comment on above: Screening breast exa mination (Primary Dx) Start: 11-29-2022 E-mail encounter fro m caregiver [facility] Provider [facility] Start: 11-29-2022 Follow-up encounter [facility] Provider End [facility] Comment on above: Follow up Start: 11-27-2022 Telephone encounter Raphael draper APRON WORKER.FRENCH TRANSLATOR Work Phone: Hematology/Oncology Comment on above: Medication Problem Start: 11-22-2022 Telephone encounter Bradford walker APRON WORKER.EDGE CUTTING MACHINE OPERATOR Work Phone: [facility] [place] Comment on above: Results Start: 10-18-2022 End: 10-18-2022 Office outpatient visit 15 minutes Bradford Love APRN.EDGE CUTTING MACHINE OPERATOR Work Phone: Internal Medicine [place] Comment on above: Primary hypertension (Primary Dx); Encounter for immunization; Need for shingles vaccine; History of extraction of renal calculus; History of hydronephrosis Start: 10-10-2022 Telephone encounter Raphael draper APRN.FRENCH TRANSLATOR Work Phone: Hematology/Oncology Comment on above: Patient Update Start: 09-30-2022 Telephone encounter Ruddy almeida MD Work Phone: Internal Medicine [place] Comment on above: Patient Question Start: 09-04-2022 Refill Ruddy brothers MD Work Phone: Family Medicine [place] Comment on above: Refill Request Start: 08-28-2022 Refill Ruddy brothers MD Work Phone: [facility] [place] Start: 08-06-2022 Refill Ruddy brothers MD Work Phone: Internal Medicine [place] Comment on above: Refill Request Start: 07-24-2022 Documentation procedure Mammog estela Coordinator [facility] Start: 07-24-2022 Letter encounter Mammography Coordinator [facility] Department Start: 07-24-2022 End: 07-24-2022 Subsequent hospital visit by physician Diagnostic Mammo [facility] Mammogram Start: 06-27-2022 End: 06-27-2022 Office outpatient visit 25 minutes Bradford Love APRN.EDGE CUTTING MACHINE OPERATOR Work Phone: [facility] [place] Comment on above: Type 2 diabetes lona itus with diabetic neuropathy, without long-term current use of insulin (HCC) (Primary Dx); Vitamin D deficiency; Insomnia, unspecified type Start: 05-24-2022 End: 05-24-2022 ambulatory Raphael Perdomo APRN.FRENCH TRANSLATOR Work Phone: Hematology/Oncology Comment on above: Invasive ductal carc inoma of breast, left (HCC) (Primary Dx); Ductal carcinoma in situ (DCIS) of right breast Start: 05-24-2022 End: 05-24-2022 Patient encounter procedure Raphael Perdomo APRON WORKER.FRENCH TRANSLATOR Work Phone: [facility] [facility] Start: 04-24-2022 Refill Ruddy brothers MD Work Phone: Internal Medicine [place] Comment on above: Refill Request Start: 04-18-2022 End: 04-18-2022 ambulatory Treatment Rm 11 [place] [facility] Work Phone: Hematology/Oncology Comment on above: Osteoporosis, unspec ified (Primary Dx) Start: 03-29-2022 Telephone encounter Raphael draper APRON WORKER.FRENCH TRANSLATOR Work Phone: Hematology/Oncology Comment on above: Appointment Start: 03-28-2022 End: 03-28-2022 Office outpatient visit 25 minutes Bradford Love APRN.EDGE CUTTING MACHINE OPERATOR Work Phone: Internal Medicine [place] Comment on above: Preop exam for inter nal medicine (Primary Dx); Type 2 diabetes mellitus with diabetic neuropathy, without long-term current use of insulin (HCC); Need for shingles vaccine; Encounter for immunization; Screening for diabetic retinopathy; Vitamin D deficiency Start: 03-28-2022 End: 03-28-2022 Patient encounter status Bradford Love APRN.EDGE CUTTING MACHINE OPERATOR Work Phone: [facility] [place] Start: 03-01-2022 Orders Only Zafar Jones MD Work Phone: [facility] Comment on above: Intracranial aneurys m (Primary Dx); Nonruptured cerebral aneurysm Start: 02-18-2022 End: 02-18-2022 Subsequent hospital visit by physician Mri Radio 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] Start: 01-14-2022 Telephone encounter Monae Muhammad (R n) RN Breast Center Comment on above: After School Program Assistant - O ther (Sending records to [facility]) Start: 01-07-2022 Telephone encounter Michael collins MD Work Phone: Plastic Surgery Comment on above: Patient Question (Horacio dupree called and had question about inplants after radiation.) Start: 12-19-2021 End: 12-19-2021 ambulatory Julianne Saab PT Work Phone: [facility] Comment on above: 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) Start: 12-17-2021 End: 12-17-2021 ambulatory Julianne Saab PT Work Phone: [facility] Comment on above: 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) Start: 12-16-2021 Orders Only Ruddy brothers MD Work Phone: Internal Medicine [place] Comment on above: Vitamin D deficiency (Primary Dx); Type 2 diabetes mellitus with diabetic neuropathy, without long-term current use of insulin (HCC); Generalized anxiety disorder; Mixed hyperlipidemia Start: 12-13-2021 Telephone encounter Zafar simmons MD Work Phone: Cerebrovascular Center Comment on above: Patient Question Start: 12-12-2021 End: 12-12-2021 ambulatory Julianne Saab PT Work Phone: [facility] Comment on above: 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) Start: 12-10-2021 End: 12-10-2021 ambulatory Julianne Saab PT Work Phone: [facility] Comment on above: 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) Start: 12-05-2021 End: 12-05-2021 ambulatory Nunu Luz DIRECTOR UNIVERSITY Work Phone: [facility] Comment on above: 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) Start: 12-05-2021 Telephone encounter Zafar simmons MD Work Phone: C[facility] Comment on above: Medical Clearance (R eceived fax request for surgical clearance from [facility] - scanned into [facility]) Start: 12-04-2021 Refill Raphael cuevas APRN.FRENCH TRANSLATOR Work Phone: Hematology/Oncology Comment on above: Refill Request Start: 12-03-2021 End: 12-03-2021 ambulatory Nunu Luz DIRECTOR UNIVERSITY Work Phone: [facility] Comment on above: 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) Start: 12-03-2021 E-mail encounter fro m caregiver [facility]orm[facility] Start: 11-29-2021 Documentation procedure Mammog estela [facility]inator [facility] Start: 11-29-2021 Letter encounter Mammography Coordinator [facility] Department Start: 11-29-2021 End: 11-29-2021 Subsequent hospital visit by physician Screen Mammo [facility] Mammography Start: 11-29-2021 End: 11-29-2021 Patient encounter procedure Sheela Celeste PA-C Work Phone: [facility] Comment on above: Bilateral fibrocysti c breast changes (Primary Dx); Personal history of breast cancer; S/P bilateral breast lumpectomy; Use of anastrozole; Encounter for screening mammogram for malignant neoplasm of breast Start: 11-28-2021 End: 11-28-2021 ambulatory Julianne Saab PT Work Phone: [facility] Comment on above: 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) Start: 11-26-2021 End: 11-26-2021 ambulatory Julianne Saab PT Work Phone: [facility] Comment on above: 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) Start: 10-31-2021 End: 10-31-2021 ambulatory Julianne Saab PT Work Phone: [facility] Comment on above: 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) Start: 10-23-2021 End: 10-23-2021 ambulatory Treatment Rm 12 [place] [facility] Work Phone: Hematology/Oncology Comment on above: Osteoporosis, unspec ified (Primary Dx) Start: 10-17-2021 End: 10-17-2021 Office outpatient visit 25 minutes Ruddy Cooper MD Work Phone: Internal Medicine [place] Comment on above: Insomnia, unspecifie d type (Primary Dx); Anxiety; Vitamin D deficiency; Type 2 diabetes mellitus with diabetic neuropathy, without long-term current use of insulin (HCC); Encounter for long-term current use of medication; Malignant neoplasm of nipple of left breast in female, unspecified estrogen receptor status (HCC) Start: 10-08-2021 End: 10-08-2021 Subsequent hospital visit by physician Xr [facility] [place] Work Phone: Radiology Comment on above: Acute right ankle pa in [M25.571] Start: 10-08-2021 End: 10-08-2021 Patient encounter procedure Ruiz Serrato APRN.CNP Work Phone: [facility] Comment on above: Acute right ankle pa in (Primary Dx) Start: 09-05-2021 Refill Ruddy brothers MD Work Phone: Internal Medicine [place] Comment on above: Refill Request Start: 08-29-2021 End: 08-31-2021 Evaluation and management of inpatient [facility] 3 Start: 08-07-2021 End: 08-07-2021 Subsequent hospital visit by physician Radio General Lurdes Macias Work Phone: Radiology Comment on above: Right knee pain, uns pecified chronicity [M25.561] Start: 08-06-2021 Telephone encounter Candelario woodward MD Work Phone: Orthopaedics Comment on above: Appointment (constru ction ) Start: 12-25-2020 End: 12-25-2020 Subsequent hospital visit by physician Patricia [facility] Work Phone: Radiology Comment on above: Cough [R05] Start: 05-06-2020 End: 05-06-2020 Subsequent hospital visit by physician Patricia [facility] Work Phone: Radiology Comment on above: [...] et rgnt auto w/o microscopy Charleen Alejandre APRON WORKER.FRENCH TRANSLATOR Work Phone: Start: 01-06-2024 Screening digital br east tomosynthesis bi Bradford Love APRON WORKER.EDGE CUTTING MACHINE OPERATOR Work Phone: Start: 10-14-2023 Radex ankle complete minimum 3 views Ruiz Bakerlondon APRON WORKER.FRENCH TRANSLATOR Work Phone: Start: 02-27-2023 Mra head w/o & w/con trast material Adeline Mares APRON WORKER.FRENCH TRANSLATOR Work Phone: Start: 01-03-2023 Us breast uni real t jordana with image limited Sheelatiffanie Celeste PA-C Work Phone: Start: 01-03-2023 Digital breast tomosynthesis bilateral Sheelatiffanie Celeste PA-C Work Phone: Start: 07-24-2022 Digital breast tomosynthesis unilateral [facility] Provider Start: 02-18-2022 Mra head w/o & w/con trast material Gamaliel Reardon APRON WORKER.FRENCH TRANSLATOR Work Phone: Start: 11-29-2021 WILLIE SCREENING W AVNI Er tiffanie Celeste PA-C Work Phone: Start: 10-08-2021 Radex ankle complete minimum 3 views Ruiz Bakerlondon APRON WORKER.FRENCH TRANSLATOR Work Phone: Start: 08-31-2021 Extracorporeal shock wave lithotripsy Start: 08-30-2021 End: 08-30-2021 Viral antigen assay Start: 08-30-2021 Diagnostic radiograp hy of abdomen Start: 08-29-2021 CT of abdomen and pe lvis without contrast Start: 08-07-2021 Radiologic examinati on knee 3 views Rigoberto Chase APRON WORKER.FRENCH TRANSLATOR Work Phone: Start: 12-25-2020 Radiologic exam ches t 2 views Vivi Pedroza APRON WORKER.FRENCH TRANSLATOR Work Phone: Start: 05-06-2020 Radex ankle complete minimum 3 views Marbin Burgess MD Work Phone: Start: 08-18-2017 Colonoscopy Candelario woodward MD Work Phone: Start: 08-13-2017 Colonoscopy Julianne Gayle son PT Work Phone: H/O: surgery History of extra ction of renal calculus Bradford Love APRON WORKER.EDGE CUTTING MACHINE OPERATOR Work Phone: H/O: surgery History of abdom inal surgery Bradford Love APRON WORKER.EDGE CUTTING MACHINE OPERATOR Work Phone: H/O: surgery History of [...] BP Controlled (<130/80) BP Controlled (<130/80) [facility] Start: 09-07-2025 BP Controlled (<130/80) BP Controlled (<130/80) [facility] Start: 08-17-2025 Hepatitis B screening Urine Albumin:Creatinine Ratio [facility] Start: 08-17-2025 Hepatitis B surface antibody level LDL Cholesterol [facility] Start: 08-16-2025 BP Controlled (<130/80) BP Controlled (<130/80) [facility] Start: 06-21-2025 BP Controlled (<130/80) BP Controlled (<130/80) [facility] Start: 03-16-2025 End: 03-16-2025 ambulatory 03/16/2025 1:00 PM EST Visit (SP) Office Hematology/Oncology [address] [place] [address] Raphael Perdomo APRN.FRENCH TRANSLATOR [address] [place] [address] 6 MTH OV* Hematology/Oncology Comment on above: 6 MTH OV* Start: 03-08-2025 End: 03-08-2025 Patient encounter procedure 03/08/2025 1:00 PM EST Office Visit NEUROLOGY [address] [place] [address] Melani Zuniga APRON WORKER.FRENCH TRANSLATOR [address] [place] [address] Residual Aneurysm NEUROLOGY Comment on above: Residual Aneurysm Start: 03-01-2025 End: 03-01-2025 Patient encounter procedure 03/01/2025 1:00 PM EST Appointment Cat Scan [address] [place], [place] [id number] Dx: 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] Cat Scan Comment on above: Dx: 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 ] Start: 02-25-2025 Annual PCP Team Chronic Disease Visit Annual PCP Team Chronic Disease Visit [facility] Start: 02-25-2025 BP Controlled (<130/80) BP Controlled (<130/80) [facility] Start: 01-06-2025 End: 01-06-2025 Patient encounter procedure 01/06/2025 11:30 AM EDT Appointment Mammogram [address] [place], [place] [id number] Encounter for screening mammogram for breast cancer [Z12.31] Mammogram Comment on above: Encounter for screening mammogram for br east cancer [Z12.31] Start: 12-27-2024 Influenza vaccination Influenza Vaccine (Season Ended) [facility] Start: 12-18-2024 BP Controlled (<130/80) BP Controlled (<130/80) [facility] Start: 12-16-2024 Hemoglobin A1c measurement HbA1C [facility] Start: 12-11-2024 Glaucoma screening Dilated Retinal Exam [facility] Start: 12-09-2024 Annual PCP Team Chronic Disease Visit Annual PCP Team Chronic Disease Visit [facility] Start: 12-06-2024 End: 12-06-2024 Patient encounter procedure 12/06/2024 1:00 PM EDT Office Visit [facility] [place] [address] [place] [address] Bradford Love APRN.EDGE CUTTING MACHINE OPERATOR [address] [place] [address] 2024 Medicare Wellness Z00.00/HCC Gap Closure [facility] [place] Comment on above: 2024 Medicare Wellness Z00.00/HCC Gap Cl osure Start: 11-22-2024 End: 11-22-2024 Patient encounter procedure 11/22/2024 12:30 PM EDT Appointment Radiology [address] [place] [id number] BONE DENSITY Radiology Comment on above: BONE DENSITY Start: 11-04-2024 Screening for osteoporosis Bone Density Screening [facility] Start: 10-25-2024 [facility] on above: Postponed from 12/28/2023 (Declined at t his time) Start: 10-13-2024 BP Controlled (<130/80) BP Controlled (<130/80) [facility] Start: 09-14-2024 End: 09-14-2024 ambulatory 09/14/2024 1:00 PM EDT Visit (SP) Office Hematology/Oncology [address] [place] [address] Raphael Perdomo APRN.FRENCH TRANSLATOR [address] [place] [address] 6 MO OV Hematology/Oncology Comment on above: 6 MO OV Start: 09-13-2024 End: 09-13-2024 Patient encounter procedure [facility] [place] Comment on above: 3mo follow up Start: 09-09-2024 [facility] Start: 09-07-2024 End: 12-07-2024 Urinalysis complete panel - Urine URINALYSIS (WITH MICROSCOPIC) WITH CULTURE IF INDICATED Lab Routine Urinary tract infection without hematuria, site unspecified Expected: 09/07/2024, Expires: 12/07/2024 [facility] Comment on above: Expected: 09/07/2024, Expires: Start: 09-06-2024 End: 09-06-2024 Patient encounter procedure 09/06/2024 2:20 PM EDT Office Visit [facility] [place] [address] [place] [address] Ruddy Cooper MD [address] [place] [address] Hospital Follow Up/TCM eligible through 09/13/2024- HCC Gap Closure [facility] [place] Comment on above: Hospital Follow Up/TCM eligible through 09/13/2024- HCC Gap Closure Start: 09-04-2024 Annual PCP Team Chronic Disease Visit Annual PCP Team Chronic Disease Visit [facility] Start: 08-30-2024 Patient discharge [facility] Start: 08-30-2024 [facility] Start: 08-27-2024 [facility] Start: 08-26-2024 End: 08-26-2024 ambulatory 08/26/2024 11:30 AM EDT Visit (SP) Office Hematology/Oncology [address] [place] [address] Raphael Perdomo APRN.FRENCH TRANSLATOR [address] [place] [address] 6 MO OV Hematology/Oncology Comment on above: 6 MO OV Start: 08-26-2024 Speech therapy assessment [facility] Start: 08-26-2024 Application of intermittent pneumatic compression device [facility] Start: 08-26-2024 Assessment of risk of venous thromboembolism [facility] Start: 08-26-2024 Care regimes management [facility] Start: 08-26-2024 Fall prevention [facility] Start: 08-26-2024 Insertion of catheter into peripheral vein [facility] Start: 08-26-2024 Introduction of urinary catheter [facility] Start: 08-26-2024 Measuring intake and output [facility] Start: 08-26-2024 Notification of physician [facility] Start: 08-26-2024 Providing care according to standard [facility] Start: 08-26-2024 Provision of activity privileges [facility] Start: 08-26-2024 Referral to occupational therapist [facility] Start: 08-26-2024 Referral to service [facility] Start: 08-26-2024 End: 08-26-2024 [facility] Start: 08-26-2024 Following clinical pathway protocol [facility] Start: 08-25-2024 Admission procedure [facility] Start: 08-25-2024 End: 08-25-2024 Patient encounter procedure 08/25/2024 1:30 PM EDT Office Visit Geriatrics [address] [place] [address] Zabrina Meyer MD [address] [place] [address] Cognitive impairment [R41.89] Geriatrics Comment on above: Cognitive impairment [R41.89] Start: 08-16-2024 End: 11-15-2024 IMMUNOFIXATION SCREEN, SERUM IMMUNOFIXATION SCREEN, SERUM Lab Routine DM type 2 with diabetic peripheral neuropathy (HCC) Expected: 08/16/2024, Expires: 11/15/2024 [facility] Comment on above: Expected: 08/16/2024, Expires: Start: 08-16-2024 End: 11-15-2024 Methylmalonate [Moles/volume] in Serum or Plasma METHYLMALONIC ACID Lab Routine DM type 2 with diabetic peripheral neuropathy (HCC) Expected: 08/16/2024, Expires: 11/15/2024 [facility] Comment on above: Expected: 08/16/2024, Expires: Start: 08-16-2024 End: 11-15-2024 Pyridoxine [Mass/volume] in Serum or Plasma VITAMIN B6/PYRIDOXIN Lab Routine DM type 2 with diabetic peripheral neuropathy (HCC) Expected: 08/16/2024, Expires: 11/15/2024 [facility] Work Phone: Comment on above: Expected: 08/16/2024, Expires: Start: 08-16-2024 End: 08-16-2024 Patient encounter procedure 08/16/2024 1:00 PM EDT Office Visit Neurology [address] [place], [place] [id number] Khris Salinas MD [address] [place], [place] [id number] Severe neuropathy in bilateral upper and lower extremities Neurology Comment on above: Severe neuropathy in bilateral upper and lower extremities Start: 08-13-2024 End: 08-13-2024 Patient encounter procedure 08/13/2024 12:00 PM EDT Office Visit Neurology [address] [place] [address] Tone Guzman MD [address] [facility] [place] [id number] Severe neuropathy in bilateral upper and lower extremities Neurology Comment on above: Severe neuropathy in bilateral upper and lower extremities Start: 06-25-2024 Hepatitis B screening Urine Albumin:Creatinine Ratio [facility] Start: 06-25-2024 Hepatitis B surface antibody level LDL Cholesterol [facility] Start: 06-23-2024 End: 09-22-2024 CREATININE BLD CREATININE BLD Lab Routine Screening for nephropathy Expected: 06/23/2024, Expires: 09/22/2024 [facility] Comment on above: Expected: 06/23/2024, Expires: Start: 06-22-2024 End: 06-22-2024 Nursing evaluation of patient and report 06/22/2024 11:00 AM EST Nurse Visit Endocrinology [address] [place] [address] Norris Young, LAURITA [address] [id number] Type 2 diabetes mellitus with diabetic neuropathy, [...] of insulin (HCC) Expected: 06/21/2024, Expires: 09/20/2024 [facility] Comment on above: Expected: 06/21/2024, Expires: Start: 06-21-2024 End: 09-20-2024 Microalbumin/Creatinine [Mass Ratio] in Urine ALBUMIN/CREATININE RATIO, URINE Lab Routine Type 2 diabetes mellitus with diabetic neuropathy, without long-term current use of insulin (HCC) Expected: 06/21/2024, Expires: 09/20/2024 [facility] Work Phone: Comment on above: Expected: 06/21/2024, Expires: Start: 06-20-2024 End: 09-19-2024 Hemoglobin A1c in Blood HEMOGLOBIN A1C Lab Routine Type 2 diabetes mellitus with diabetic neuropathy, without long-term current use of insulin (HCC) Expected: 06/20/2024 (Approximate), Expires: 09/19/2024 [facility] Comment on above: Expected: 06/20/2024 (Approximate), Expi res: 09/19/2024 Start: 06-14-2024 End: 06-14-2024 Patient encounter procedure 06/14/2024 11:00 AM EST Office Visit Internal Medicine [place] [address] [place] [address] Bradford Love APRN.CNS [address] [place] [address] 3 month follow up [facility] [place] Comment on above: 3 month follow up Start: 06-10-2024 Hemoglobin A1c measurement HbA1C [facility] Start: 05-26-2024 Annual PCP Team Chronic Disease Visit Annual PCP Team Chronic Disease Visit [facility] Start: 04-03-2024 BP Controlled (<130/80) BP Controlled (<130/80) [facility] Start: 03-12-2024 End: 03-12-2024 Patient encounter procedure 03/12/2024 3:00 PM EST Office Visit Internal Medicine [place] [address] [place] [address] Ruddy Cooper MD [address] [place] [address] 3 mo follow up [facility] [place] Comment on above: 3 mo follow up Start: 02-26-2024 End: 05-27-2024 25-hydroxyvitamin D3 [Mass/volume] in Serum or Plasma VITAMIN D 25 HYDROXY Lab Routine Vitamin D deficiency Expected: 02/26/2024, Expires: 05/27/2024 [facility] Comment on above: Expected: 02/26/2024, Expires: Start: 02-26-2024 End: 05-27-2024 EDGARDO BY IFA SCREEN EDGARDO BY IFA SCREEN Lab Routine Arthritis of hand Expected: 02/26/2024, Expires: 05/27/2024 [facility] Comment on above: Expected: 02/26/2024, Expires: Start: 02-26-2024 End: 05-27-2024 C reactive protein [Mass/volume] in Serum or Plasma C-REACTIVE PROTEIN Lab Routine Arthritis of hand Expected: 02/26/2024, Expires: 05/27/2024 [facility] Comment on above: Expected: 02/26/2024, Expires: Start: 02-26-2024 End: 05-27-2024 CBC W Auto Differential panel - Blood COMPLETE BLOOD COUNT AND DIFFERENTIAL Lab Routine Arthritis of hand Type 2 diabetes mellitus with diabetic neuropathy, without long-term current use of insulin (HCC) Encounter for long-term current use of medication Expected: 02/26/2024, Expires: 05/27/2024 [facility] Comment on above: Expected: 02/26/2024, Expires: Start: 02-26-2024 End: 05-27-2024 Comprehensive metabolic 2000 panel - Serum or Plasma COMPREHENSIVE METABOLIC PANEL Lab Routine Vitamin D deficiency Encounter for long-term current use of medication Expected: 02/26/2024, Expires: 05/27/2024 [facility] Comment on above: Expected: 02/26/2024, Expires: Start: 02-26-2024 End: 05-27-2024 Erythrocyte sedimentation rate SEDIMENTATION RATE, WESTERGREN Lab Routine Arthritis of hand Expected: 02/26/2024, Expires: 05/27/2024 [facility] Comment on above: Expected: 02/26/2024, Expires: Start: 02-26-2024 End: 05-27-2024 Hemoglobin A1c in Blood HEMOGLOBIN A1C Lab Routine Type 2 diabetes mellitus with diabetic neuropathy, without long-term current use of insulin (HCC) Expected: 02/26/2024, Expires: 05/27/2024 [facility] Comment on above: Expected: 02/26/2024, Expires: Start: 02-26-2024 End: 05-27-2024 Rheumatoid factor [Units/volume] in Serum or Plasma RHEUMATOID FACTOR Lab Routine Arthritis of hand Expected: 02/26/2024, Expires: 05/27/2024 [facility] Comment on above: Expected: 02/26/2024, Expires: Start: 02-26-2024 End: 02-26-2024 Patient encounter procedure 02/26/2024 12:20 PM EDT Office Visit [facility] Medicine [place] [address] [place] [address] Ruddy Cooper MD [address] [place] [address] 3 mo follow up [facility] [place] Comment on above: 3 mo follow up Start: 02-25-2024 Annual PCP Team Chronic Disease Visit Annual PCP Team Chronic Disease Visit [facility] Start: 02-25-2024 BP Controlled (<130/80) BP Controlled (<130/80) [facility] Start: 02-25-2024 End: 02-25-2024 ambulatory [facility] Comment on above: lab 6 MO OV/LAB&ZOMETA T MARRY* Q6MO ZOMETA/LAB&OV E ARISTIDES/AUTH EXP 08/24/24* no later than 230 w/lab 6 MO OV* Start: 01-27-2024 End: 01-27-2024 ambulatory 01/27/2024 1:30 PM EDT OT/PT/Speech Visit [facility] [address] [place] [address] O'Casper, Charleen, PT Gait difficulty [R26.9] Complaints of leg weakness [R29.898] [facility] Comment on above: Gait difficulty [R26.9] Complaints of le g weakness [R29.898] Start: 01-20-2024 End: 01-20-2024 ambulatory 01/20/2024 1:30 PM EDT OT/PT/Speech Visit [facility] [address] [place] [address] O'CasperCharleen, PT Gait difficulty [R26.9] Complaints of leg weakness [R29.898] [facility] Comment on above: Gait difficulty [R26.9] Complaints of le g weakness [R29.898] Start: 01-13-2024 End: 01-13-2024 ambulatory 01/13/2024 11:15 AM EDT OT/PT/Speech Visit [facility] [address] [place] [address] O'CasperAlizaCharleen, PT Gait difficulty [R26.9] Complaints of leg weakness [R29.898] [facility] Comment on above: Gait difficulty [R26.9] Complaints of le g weakness [R29.898] Start: 01-06-2024 End: 01-06-2024 ambulatory 01/06/2024 1:30 PM EDT OT/PT/Speech Visit [facility] [address] [place] [address] O'CasperCharleen, PT Gait difficulty [R26.9] Complaints of leg weakness [R29.898] [facility] Comment on above: Gait difficulty [R26.9] Complaints of le g weakness [R29.898] Start: 01-06-2024 End: 01-06-2024 Patient encounter procedure 01/06/2024 12:50 PM EDT Appointment Mammogram [address] [place] [address] av[facility] mammography Mammogram Comment on above: [facility] mammography Start: 01-05-2024 End: 01-05-2024 Patient encounter procedure [facility] Comment on above: yearly follow up Start: 01-02-2024 End: 01-02-2024 Patient encounter procedure 01/02/2024 11:20 AM EDT Office Visit Cardiology [address] [place] [address] Hypertension [I10] Cardiology Comment on above: Hypertension [I10] Start: 12-28-2023 Covid-19 Vaccine () Covid-19 Vaccine () [facility] Start: 12-28-2023 Covid-19 Vaccine () Covid-19 Vaccine () [facility] Start: 12-28-2023 Influenza vaccination [facility] Start: 12-15-2023 End: 12-15-2023 ambulatory 12/15/2023 2:45 PM EDT OT/PT/Speech Visit [facility] [address] [place] [address] Charleen Rocha, PT Gait difficulty [R26.9] Complaints of leg weakness [R29.898] [facility] Comment on above: Gait difficulty [R26.9] Complaints of le g weakness [R29.898] Start: 12-10-2023 End: 12-10-2023 Patient encounter procedure 12/10/2023 2:00 PM EDT Office Visit [facility] [place] [address] [place] [address] Ruddy Cooper MD [address] [place] [address] 3 mo follow up [facility] [place] Comment on above: 3 mo follow up Start: 12-09-2023 End: 03-09-2024 Hemoglobin A1c in Blood HEMOGLOBIN A1C Lab Routine Type 2 diabetes mellitus with diabetic neuropathy, without long-term current use of insulin (HCC) Expected: 12/09/2023 (Approximate), Expires: 03/09/2024 [facility] Comment on above: Expected: 12/09/2023 (Approximate), Expi res: 03/09/2024 Start: 11-26-2023 End: 11-26-2023 ambulatory 11/26/2023 12:00 PM EDT OT/PT/Speech Visit [facility] [address] [place] [address] O'CasperCharleen, PT Gait difficulty [R26.9] Complaints of leg weakness [R29.898] [facility] Comment on above: Gait difficulty [R26.9] Complaints of le g weakness [R29.898] Start: 11-24-2023 End: 11-24-2023 ambulatory 11/24/2023 12:30 PM EDT OT/PT/Speech Visit [facility] [address] [place] [address] O'Casper, Charleen, PT Gait difficulty [R26.9] Complaints of leg weakness [R29.898] [facility] Comment on above: Gait difficulty [R26.9] Complaints of le g weakness [R29.898] Start: 11-19-2023 End: 11-19-2023 ambulatory 11/19/2023 12:45 PM EDT OT/PT/Speech Visit [facility] [address] [place] [address] O'Casper, Charleen, PT Gait difficulty [R26.9] Complaints of leg weakness [R29.898] [facility] Comment on above: Gait difficulty [R26.9] Complaints of le g weakness [R29.898] Start: 11-17-2023 End: 11-17-2023 ambulatory 11/17/2023 12:30 PM EDT OT/PT/Speech Visit [facility] [address] [place] [address] O'CasperCharleen, PT Gait difficulty [R26.9] Complaints of leg weakness [R29.898] [facility] Comment on above: Gait difficulty [R26.9] Complaints of le g weakness [R29.898] Start: 11-12-2023 End: 11-12-2023 ambulatory 11/12/2023 12:45 PM EDT OT/PT/Speech Visit [facility] [address] [place] [address] O'CasperAlizaCharleen, PT Gait difficulty [R26.9] Complaints of leg weakness [R29.898] [facility] Comment on above: Gait difficulty [R26.9] Complaints of le g weakness [R29.898] Start: 11-10-2023 End: 11-10-2023 ambulatory 11/10/2023 12:30 PM EDT OT/PT/Speech Visit [facility] [address] [place] [address] Marissa Lobato, [facility] [address] [place] [address] Gait difficulty [R26.9] Complaints of leg weakness [R29.898] [facility] Comment on above: Gait difficulty [R26.9] Complaints of le g weakness [R29.898] Start: 11-06-2023 End: 11-06-2023 ambulatory 11/06/2023 11:00 AM EDT OT/PT/Speech Visit [facility] [address] [place] [address] O'Casper, Charleen, PT Gait difficulty [R26.9] Complaints of leg weakness [R29.898] [facility] Comment on above: Gait difficulty [R26.9] Complaints of le g weakness [R29.898] Start: 11-03-2023 End: 11-03-2023 ambulatory 11/03/2023 12:30 PM EDT OT/PT/Speech Visit [facility] [address] [place] [address] O'Casper, Charleen, PT Gait difficulty [R26.9] Complaints of leg weakness [R29.898] [facility] Comment on above: Gait difficulty [R26.9] Complaints of le g weakness [R29.898] Start: 10-29-2023 End: 10-29-2023 ambulatory 10/29/2023 1:30 PM EDT OT/PT/Speech Visit [facility] [address] [place] [address] O'Casper, Charleen, PT Gait difficulty [R26.9] Complaints of leg weakness [R29.898] [facility] Comment on above: Gait difficulty [R26.9] Complaints of le g weakness [R29.898] Start: 10-27-2023 End: 10-27-2023 ambulatory 10/27/2023 1:15 PM EDT OT/PT/Speech Visit [facility] [address] [place] [address] O'Casper, Charleen, PT Gait difficulty [R26.9] Complaints of leg weakness [R29.898] [facility] Comment on above: Gait difficulty [R26.9] Complaints of le g weakness [R29.898] Start: 10-26-2023 Influenza vaccination Influenza Vaccine (#1) [facility] Comment on above: Postponed from 12/27/2022 (Declined at t his time) Start: 10-22-2023 End: 10-22-2023 ambulatory 10/22/2023 12:45 PM EDT OT/PT/Speech Visit [facility] [address] [place] [address] O'Casper, Charleen, PT Gait difficulty [R26.9] Complaints of leg weakness [R29.898] [facility] Comment on above: Gait difficulty [R26.9] Complaints of le g weakness [R29.898] Start: 10-20-2023 End: 10-20-2023 ambulatory 10/20/2023 3:30 PM EDT OT/PT/Speech Visit [facility] [address] [place] [address] O'Casper, Charleen, PT Gait difficulty [R26.9] Complaints of leg weakness [R29.898] [facility] Comment on above: Gait difficulty [R26.9] Complaints of le g weakness [R29.898] Start: 10-19-2023 ANNUAL PCP TEAM CHRONIC DISEASE VISIT ANNUAL PCP TEAM CHRONIC DISEASE VISIT [facility] Start: 10-19-2023 BP CONTROLLED (<130/80) BP CONTROLLED (<130/80) [facility] Start: 09-29-2023 End: 09-29-2023 ambulatory 09/29/2023 2:00 PM EDT OT/PT/Speech Visit [facility] [address] [place] [address] Charleen Rocha, PT Gait difficulty [R26.9] [facility] Comment on above: Gait difficulty [R26.9] Start: 09-26-2023 End: 09-26-2023 Patient encounter procedure Cat Scan Comment on above: History of abdominal surgery [Z98.890] Start: 09-23-2023 Hemoglobin A1c measurement HbA1C [facility] Start: 09-23-2023 End: 09-23-2023 Patient encounter procedure Cat Scan Comment on above: History of abdominal surgery [Z98.890] Start: 09-22-2023 Hemoglobin A1c measurement HbA1C [facility] Start: 09-22-2023 Hemoglobin A1c/Hemoglobin.total in Blood HbA1C [facility] Start: 09-10-2023 End: 09-10-2023 ambulatory [facility] Comment on above: lab 6 MO OV/LAB&ZOMETA T MARRY* Q6MO ZOMETA/LAB&OV E ARISTIDES/AUTH EXP 08/24/24* Start: 06-28-2023 BP CONTROLLED (<130/80) BP CONTROLLED (<130/80) [facility] Start: 06-25-2023 End: 09-24-2023 25-hydroxyvitamin D3 [Mass/volume] in Serum or Plasma VITAMIN D 25 HYDROXY Lab Routine Vitamin D deficiency Expected: 06/25/2023 (Approximate), Expires: 09/24/2023 [facility] Work Phone: Comment on above: Expected: 06/25/2023 (Approximate), Expi res: 09/24/2023 Start: 06-25-2023 End: 09-24-2023 ALBUMIN/CREAT RATIO RND UR ALBUMIN/CREAT RATIO RND UR Lab Routine Type 2 diabetes mellitus with diabetic neuropathy, without long-term current use of insulin (HCC) Expected: 06/25/2023 (Approximate), Expires: 09/24/2023 [facility] Work Phone: Comment on above: Expected: 06/25/2023 (Approximate), Expi res: 09/24/2023 Start: 06-25-2023 End: 09-24-2023 CBC panel - Blood by Automated count CBC Lab Routine Primary hypertension Expected: 06/25/2023 (Approximate), Expires: 09/24/2023 [facility] Work Phone: Comment on above: Expected: 06/25/2023 (Approximate), Expi res: 09/24/2023 Start: 06-25-2023 End: 09-24-2023 Comprehensive metabolic 2000 panel - Serum or Plasma COMP METABOLIC PANEL Lab Routine Primary hypertension Type 2 diabetes mellitus with diabetic neuropathy, without long-term current use of insulin (HCC) Expected: 06/25/2023 (Approximate), Expires: 09/24/2023 [facility] Work Phone: Comment on above: Expected: 06/25/2023 (Approximate), Expi res: 09/24/2023 Start: 06-25-2023 End: 09-24-2023 Hemoglobin A1c in Blood HGB A1C Lab Routine Type 2 diabetes mellitus with diabetic neuropathy, without long-term current use of insulin (HCC) Expected: 06/25/2023 (Approximate), Expires: 09/24/2023 [facility] Work Phone: Comment on above: Expected: 06/25/2023 (Approximate), Expi res: 09/24/2023 Start: 06-25-2023 End: 09-24-2023 Lipid 1996 panel - Serum or Plasma LIPID PANEL BASIC Lab Routine Mixed hyperlipidemia Expected: 06/25/2023 (Approximate), Expires: 09/24/2023 [facility] Work Phone: Comment on above: Expected: 06/25/2023 (Approximate), Expi res: 09/24/2023 Start: 05-24-2023 BP CONTROLLED (<130/80) BP CONTROLLED (<130/80) [facility] Start: 05-21-2023 Hemoglobin A1c/Hemoglobin.total in Blood HBA1C [facility] Start: 04-28-2023 Advance Directive Discussion Advance Directive Discussion [facility] Start: 03-29-2023 Hepatitis B screening URINE ALBUMIN:CREATININE RATIO [facility] Start: 03-28-2023 BP CONTROLLED (<130/80) BP CONTROLLED (<130/80) [facility] Start: 03-28-2023 COVID-19 VACCINE (4 - Booster for Pfizer series) COVID-19 VACCINE (4 - Booster for Pfizer series) [facility] Comment on above: Postponed from 01/10/2022 (Declined at t his time) Start: 03-28-2023 COVID-19 VACCINE (4 - Pfizer series) COVID-19 VACCINE (4 - Pfizer series) [facility] Comment on above: Postponed from 01/10/2022 (Declined at t his time) Start: 03-28-2023 Hepatitis B surface antibody level LDL CHOLESTEROL [facility] Start: 03-28-2023 Pneumococcal Vaccine: 65+ (2 - PCV) Pneumococcal Vaccine: 65+ (2 - PCV) [facility] Comment on above: Postponed from 05/04/2015 (Declined at t his time) Start: 03-28-2023 PNEUMOCOCCAL: 65+ (2 - PCV) PNEUMOCOCCAL: 65+ (2 - PCV) [facility] Comment on above: Postponed from 05/04/2015 (Declined at t his time) Start: 02-26-2023 End: 03-31-2023 Mra head w/o & w/contrast material MRA BRAIN WO/W IVCON Radiology Routine Intracranial aneurysm Expected: 02/26/2023 (Approximate), Expires: 03/31/2023 [facility] Work Phone: Comment on above: Expected: 02/26/2023 (Approximate), Expi res: 03/31/2023 Start: 12-27-2022 Covid-19 Vaccine () Covid-19 Vaccine () [facility] Start: 12-27-2022 Influenza vaccination [facility] Start: 10-26-2022 End: 06-27-2023 25-hydroxyvitamin D3 [Mass/volume] in Serum or Plasma VITAMIN D 25 HYDROXY Lab Routine Vitamin D deficiency Expected: 10/26/2022 (Approximate), Expires: 06/27/2023 [facility] Work Phone: Comment on above: Expected: 10/26/2022 (Approximate), Expi res: 06/27/2023 Start: 10-26-2022 End: 06-27-2023 CBC W Auto Differential panel - Blood CBC + DIFF Lab Routine Type 2 diabetes mellitus with diabetic neuropathy, without long-term current use of insulin (HCC) Insomnia, unspecified type Expected: 10/26/2022 (Approximate), Expires: 06/27/2023 [facility] Work Phone: Comment on above: Expected: 10/26/2022 (Approximate), Expi res: 06/27/2023 Start: 10-26-2022 End: 06-27-2023 Comprehensive metabolic 2000 panel - Serum or Plasma COMP METABOLIC PANEL Lab Routine Type 2 diabetes mellitus with diabetic neuropathy, without long-term current use of insulin (HCC) Insomnia, unspecified type Expected: 10/26/2022 (Approximate), Expires: 06/27/2023 [facility] Work Phone: Comment on above: Expected: 10/26/2022 (Approximate), Expi res: 06/27/2023 Start: 10-26-2022 End: 06-27-2023 Hemoglobin A1c in Blood HGB A1C Lab Routine Type 2 diabetes mellitus with diabetic neuropathy, without long-term current use of insulin (HCC) Expected: 10/26/2022 (Approximate), Expires: 06/27/2023 [facility] Work Phone: Comment on above: Expected: 10/26/2022 (Approximate), Expi res: 06/27/2023 Start: 10-25-2022 Influenza vaccination INFLUENZA (#1) [facility] Comment on above: Postponed from 12/27/2021 (Declined at t his time) Start: 10-17-2022 ANNUAL PCP TEAM CHRONIC DISEASE VISIT ANNUAL PCP TEAM CHRONIC DISEASE VISIT [facility] Start: 10-17-2022 BP CONTROLLED (<130/80) BP CONTROLLED (<130/80) [facility] Start: 10-17-2022 Hepatitis B surface antibody level LDL CHOLESTEROL [facility] Start: 10-08-2022 BP CONTROLLED (<130/80) BP CONTROLLED (<130/80) [facility] Start: 09-26-2022 Hemoglobin A1c/Hemoglobin.total in Blood HBA1C [facility] Start: 06-05-2022 BP CONTROLLED (<130/80) BP CONTROLLED (<130/80) [facility] Start: 04-29-2022 SHINGRIX VACCINE (1 of 2) SHINGRIX VACCINE (1 of 2) [facility] Comment on above: Postponed from 01/16/1996 (Insurance Cov erage) Start: 04-29-2022 Urine microalbumin profile DTAP,TDAP,TD (1 - Tdap) [facility] Comment on above: Postponed from 1965 (Insurance Cov erage) Start: 04-28-2022 ADVANCE DIRECTIVE DISCUSSION ADVANCE DIRECTIVE DISCUSSION [facility] Start: 04-18-2022 Hemoglobin A1c/Hemoglobin.total in Blood HBA1C [facility] Start: 04-10-2022 End: 06-10-2022 25-hydroxyvitamin D3 [Mass/volume] in Serum or Plasma VITAMIN D 25 HYDROXY Lab Routine Vitamin D deficiency Expected: 04/10/2022 (Approximate), Expires: 06/10/2022 [facility] Work Phone: Comment on above: Expected: 04/10/2022 (Approximate), Expi res: 06/10/2022 Start: 04-10-2022 End: 06-10-2022 Hemoglobin A1c in Blood HGB A1C Lab Routine Type 2 diabetes mellitus with diabetic neuropathy, without long-term current use of insulin (HCC) Expected: 04/10/2022 (Approximate), Expires: 06/10/2022 [facility] Work Phone: Comment on above: Expected: 04/10/2022 (Approximate), Expi res: 06/10/2022 Start: 04-10-2022 End: 06-10-2022 Lipid 1996 panel - Serum or Plasma LIPID PANEL BASIC Lab Routine Mixed hyperlipidemia Expected: 04/10/2022 (Approximate), Expires: 06/10/2022 [facility] Work Phone: Comment on above: Expected: 04/10/2022 (Approximate), Expi res: 06/10/2022 Start: 04-10-2022 End: 06-10-2022 LIPID PANEL, NONFASTING LIPID PANEL, NONFASTING Lab Routine Mixed hyperlipidemia Expected: 04/10/2022 (Approximate), Expires: 06/10/2022 [facility] Work Phone: Comment on above: Expected: 04/10/2022 (Approximate), Expi res: 06/10/2022 Start: 03-29-2022 ANNUAL PCP TEAM CHRONIC DISEASE VISIT ANNUAL PCP TEAM CHRONIC DISEASE VISIT [facility] Start: 03-28-2022 End: 05-28-2022 25-hydroxyvitamin D3 [Mass/volume] in Serum or Plasma [facility] Work Phone: Comment on above: Expected: 03/28/2022, Expires: 3 Start: 03-28-2022 End: 05-28-2022 ALBUMIN/CREAT RATIO RND UR ALBUMIN/CREAT RATIO RND UR Lab Routine Type 2 diabetes mellitus with diabetic neuropathy, without long-term current use of insulin (HCC) Expected: 03/28/2022, Expires: 05/28/2022 [facility] Work Phone: Comment on above: Expected: 03/28/2022, Expires: 3 Start: 03-28-2022 End: 05-28-2022 CBC W Auto Differential panel - Blood [facility] Work Phone: Comment on above: Expected: 03/28/2022, Expires: 3 Start: 03-28-2022 End: 05-28-2022 Comprehensive metabolic 2000 panel - Serum or Plasma [facility] Work Phone: Comment on above: Expected: 03/28/2022, Expires: 3 Start: 03-28-2022 End: 05-28-2022 Hemoglobin A1c in Blood [facility] Work Phone: Comment on above: Expected: 03/28/2022, Expires: 3 Start: 03-28-2022 End: 05-28-2022 LIPID PANEL, NONFASTING [facility] Work Phone: Comment on above: Expected: 03/28/2022, Expires: 3 Start: 03-18-2022 COVID-19 VACCINE (4 - Booster for Pfizer series) COVID-19 VACCINE (4 - Booster for Pfizer series) [facility] Start: 02-15-2022 COVID-19 VACCINE (4 - Booster for Pfizer series) COVID-19 VACCINE (4 - Booster for Pfizer series) [facility] Start: 02-07-2022 COVID-19 VACCINE (4 - Booster for Pfizer series) COVID-19 VACCINE (4 - Booster for Pfizer series) [facility] Start: 01-25-2022 Hepatitis B screening URINE ALBUMIN:CREATININE RATIO [facility] Start: 01-17-2022 End: 03-19-2022 Basic metabolic 2000 panel - Serum or Plasma BASIC METABOLIC PNL Lab Routine Cerebral aneurysm Expected: 01/17/2022 (Approximate), Expires: 03/19/2022 [facility] Work Phone: Comment on above: Expected: 01/17/2022 (Approximate), Expi res: 03/19/2022 Start: 01-17-2022 End: 03-19-2022 CBC panel - Blood by Automated count CBC Lab Routine Cerebral aneurysm Expected: 01/17/2022 (Approximate), Expires: 03/19/2022 [facility] Work Phone: Comment on above: Expected: 01/17/2022 (Approximate), Expi res: 03/19/2022 Start: 01-10-2022 COVID-19 VACCINE (4 - Booster for Pfizer series) COVID-19 VACCINE (4 - Booster for Pfizer series) [facility] Start: 12-27-2021 Influenza vaccination INFLUENZA (#1) [facility] Start: 08-30-2021 Bacteria identified in Urine by Culture Urine Culture [facility] Work Phone: Start: 07-08-2021 Hemoglobin A1c/Hemoglobin.total in Blood HBA1C [facility] Start: 04-28-2021 ADVANCE DIRECTIVE DISCUSSION ADVANCE DIRECTIVE DISCUSSION [facility] Start: 04-06-2021 COVID-19 VACCINE (3 - Pfizer risk series) COVID-19 VACCINE (3 - Pfizer risk series) [facility] Start: 2021 RSV Vaccine (1 - 1-dose 75+ series) RSV Vaccine (1 - 1-dose 75+ series) [facility] Start: 08-18-2020 Colonoscopy COLONOSCOPY [facility] Start: 08-18-2020 COLORECTAL CANCER SCREENING COLORECTAL CANCER SCREENING [facility] Start: 08-13-2020 Colonoscopy COLONOSCOPY [facility] Start: 08-13-2020 COLORECTAL CANCER SCREENING COLORECTAL CANCER SCREENING [facility] Start: 11-12-2019 ANNUAL PCP TEAM CHRONIC DISEASE VISIT ANNUAL PCP TEAM CHRONIC DISEASE VISIT [facility] Start: 11-06-2019 Hepatitis B surface antibody level LDL CHOLESTEROL [facility] Start: 05-07-2018 FECAL OCCULT BLOOD FECAL OCCULT BLOOD [facility] Start: 05-04-2015 Pneumococcal Vaccine: 50+ (2 of 2 - PCV) Pneumococcal Vaccine: 50+ (2 of 2 - PCV) [facility] Start: 05-04-2015 Pneumococcal Vaccine: 65+ (2 - PCV) Pneumococcal Vaccine: 65+ (2 - PCV) [facility] Start: 05-04-2015 Pneumococcal Vaccine: 65+ (2 of 2 - PCV) Pneumococcal Vaccine: 65+ (2 of 2 - PCV) [facility] Start: 05-04-2015 PNEUMOCOCCAL: 65+ (2 - PCV) PNEUMOCOCCAL: 65+ (2 - PCV) [facility] Start: 2006 Hepatitis B Vaccine (1 of 3 - Risk 3-dose series) Hepatitis B Vaccine (1 of 3 - Risk 3-dose series) [facility] Start: 2006 RSV Vaccine (1 - 1-dose 60+ series) RSV Vaccine (1 - 1-dose 60+ series) [facility] Start: 01-16-1996 SHINGRIX VACCINE (1 of 2) SHINGRIX VACCINE (1 of 2) [facility] Start: 1991 COLOGUARD (FIT-DNA) COLOGUARD (FIT-DNA) [facility] Start: [address] COLONOGRAPHY [facility] Start: 1991 SIGMOIDOSCOPY SIGMOIDOSCOPY [facility] Start: 1965 SHINGRIX VACCINE (1 of 2) SHINGRIX VACCINE (1 of 2) [facility] Start: 1965 Urine microalbumin profile [facility] Start: 01-16-1964 BP CONTROLLED (<130/80) BP CONTROLLED (<130/80) [facility] Start: 01-16-1956 3 comp foot exam completed DIABETIC FOOT EXAM [facility] Start: 01-16-1956 Diabetic foot examination Diabetic Foot Exam [facility] Start: 01-16-1956 Glaucoma screening Dilated Retinal Exam [facility] Start: 01-16-1956 Hepatitis C antibody, confirmatory test DILATED RETINAL EXAM [facility] Bacteria identified in Urine by Culture BACTERIAL CULTURE, URINE Microbiology Routine Acute UTI Ordered: 08/09/2024 [facility] Work Phone: Comment on above: Ordered: 08/09/2024 End: 10-07-2024 CT Abdomen and Pelvis WO contrast CT ABD/PEL WO IVCON Radiology Routine History of abdominal surgery Abdominal pain, chronic, generalized 1 Occurrences starting 09/08/2023 until 10/07/2024 [facility] Comment on above: 1 Occurrences starting 09/08/2023 until 10/07/2024 CT Abdomen and Pelvi s WO contrast CT ABD/PEL WO IVCON Radiology Routine History of abdominal surgery Abdominal pain, chronic, generalized 09/26/2023 11:51 AM EDT [facility] Work Phone: End: 07-23-2025 CTA Head Arteries W contrast IV CTA HEAD W IVCON Radiology Routine Nonruptured cerebral aneurysm 1 Occurrences starting 06/23/2024 until 07/23/2025 [facility] Work Phone: Comment on above: 1 Occurrences starting 06/23/2024 until 07/23/2025 End: 01-30-2025 DBT Breast - bilateral screening WILLIE SCREENING W AVNI Radiology Routine Screening mammogram for breast cancer 1 Occurrences starting 01/01/2024 until 01/30/2025 [facility] Work Phone: Comment on above: 1 Occurrences starting 01/01/2024 until 01/30/2025 End: 07-21-2025 DBT Breast - bilateral screening WILLIE SCREENING W AVNI Radiology Routine Encounter for screening mammogram for breast cancer 1 Occurrences starting 06/21/2024 until 07/21/2025 [facility] Comment on above: 1 Occurrences starting 06/21/2024 until 07/21/2025 End: 12-18-2024 Echocardiography ECHO Cardiology Routine Hypertension Syncope, unspecified syncope type 1 Occurrences starting 12/19/2023 until 12/18/2024 [facility] Work Phone: Comment on above: 1 Occurrences starting 12/19/2023 until 12/18/2024 IMMUNOFIXATION SCREE N, SERUM IMMUNOFIXATION SCREEN, SERUM Lab Routine DM type 2 with diabetic peripheral neuropathy (HCC) 08/17/2024 11:41 AM EDT [facility] IR CEREBRAL ARCH & T HREE VESSEL IR CEREBRAL ARCH & THREE VESSEL Radiology Routine Cerebral aneurysm Ordered: 12/03/2021 [facility] Work Phone: Comment on above: Ordered: 12/03/2021 End: 01-23-2024 WILLIE DIAGNOSTIC BILATERAL WILLIE DIAGNOSTIC BILATERAL Radiology Routine Bilateral fibrocystic breast changes Personal history of breast cancer S/P bilateral breast lumpectomy Mass of lower outer quadrant of right breast 1 Occurrences starting 12/24/2022 until 01/23/2024 [facility] Work Phone: Comment on above: 1 Occurrences starting 12/24/2022 until 01/23/2024 End: 01-22-2024 WILLIE SCREENING WILLIE SCREENING Radiology Routine Screening breast examination 1 Occurrences starting 12/23/2022 until 01/22/2024 [facility] Work Phone: Comment on above: 1 Occurrences starting 12/23/2022 until 01/22/2024 Methylmalonate [Moles/volume] in Serum or Plasma METHYLMALONIC ACID Lab Routine DM type 2 with diabetic peripheral neuropathy (HCC) 08/17/2024 11:41 AM EDT [facility] Patient Education [facility] Work Phone: Patient referral [facility] Work Phone: PFIZER-BIONTTerascore COVI D-19 VACCINE ( SEASON) AGE 12+ YR PFIZER-BIONTECH COVID-19 VACCINE ( SEASON) AGE 12+ YR Immunization/Injection Routine Encounter for immunization 1 Occurrences starting 09/08/2023 [facility] Comment on above: 1 Occurrences starting 09/08/2023 Pneumococcal vaccination PNEUMOC OCCAL VACCINE, 20 VALENT (PREVNAR 20) Immunization/Injection Routine Encounter for immunization 1 Occurrences starting 09/08/2023 [facility] Work Phone: Comment on above: 1 Occurrences starting 09/08/2023 Pyridoxine [Mass/vol ume] in Serum or Plasma VITAMIN B6/PYRIDOXIN Lab Routine DM type 2 with diabetic peripheral neuropathy (HCC) 08/17/2024 11:41 AM EDT [facility] Tdap vaccine 7 yrs/> im TDAP VAC CINE, AGE 7+ YR (ADACEL, BOOSTRIX) Immunization/Injection Routine Encounter for immunization 1 Occurrences starting 10/18/2022 [facility] Work Phone: Comment on above: 1 Occurrences starting 10/18/2022 UA DIP, URINE (POC) UA DIP, URIN E (POC) Lab Routine Dementia with other behavioral disturbance, unspecified dementia severity, unspecified dementia type (HCC) Ordered: 09/07/2024 [facility] Work Phone: Comment on above: Ordered: 09/07/2024 End: 01-23-2024 US BREAST LTD RIGHT US BREAST LTD RIGHT Radiology Routine Bilateral fibrocystic breast changes Personal history of breast cancer S/P bilateral breast lumpectomy Mass of lower outer quadrant of right breast 1 Occurrences starting 12/24/2022 until 01/23/2024 [facility] Work Phone: Comment on above: 1 Occurrences starting 12/24/2022 until 01/23/2024 End: 03-27-2025 XR Hand - bilateral PA and Lateral and Oblique XR HAND GENERAL 3V PA/LAT/OBL BILATERAL Radiology Routine Arthritis of hand 1 Occurrences starting 02/26/2024 until 03/27/2025 [facility] Work Phone: Comment on above: 1 Occurrences starting 02/26/2024 until 03/27/2025 XR Hand - bilateral PA and Lateral and Oblique XR HAND GENERAL 3V PA/LAT/OBL BILATERAL Radiology Routine Arthritis of hand 02/26/2024 1:51 PM EDT [facility] Immunizations Immunization Date Immunization Notes Care Provider [facility] 11-15-2021 COVID-19 original vaccine, age 12+ yr, monovalent (PFIZER-BIONTECH - BALDERAS TOP) Ruddy Cooper MD Work Phone: [facility] 03-09-2021 COVID-19 vaccine, ag e 12+ yr (PFIZER-BIONTECH - PURPLE TOP) Candelario Douglas MD Work Phone: [facility] Work Phone: 02-13-2021 Covid (Pfizer) [facility] 01-30-2021 influenza, high-dose , quadrivalent vaccine (FLUZONE HIGH DOSE QUADRIVALENT) Candelario Douglas MD Work Phone: [facility] Work Phone: 01-30-2021 influenza virus vacc ine, unspecified formulation Ruddy Cooper MD Work Phone: [facility] 01-13-2019 influenza, high dose seasonal, preservative-free Candelario Douglas MD Work Phone: [facility] Work Phone: 02-12-2018 Seasonal trivalent influenza vaccine, adjuvanted, preservative free Candelario Douglas MD Work Phone: [facility] Work Phone: 05-04-2014 pneumococcal polysaccharide vaccine, 23 valent Ruddy Cooper MD Work Phone: [facility] Work Phone: 02-04-2014 influenza, seasonal, injectable, preservative free Candelario Douglas MD Work Phone: [facility] Work Phone: Payers Date Payer Category Payer Self-pay [id number] 2019 Medicare HUMANA MEDICARE HUMANA MEDICARE PPO [id number] 2019-Present [phone] [address] [place] [address] PPO [id number] 2019 Medicare HUMANA MEDICARE HUMANA MEDICARE PPO [id number] 2019-Present [phone] [address] [place] [address] PPO [id number] 2019 Medicare (Managed Care) HUMANA M EDICARE [id number] 2019 Medicare [id number] Unknown [id number] Unknown [id number] Unknown [id number] Unknown [id number] Unknown [id number] Unknown [id number] Unknown [id number] Unknown [id number] Unknown [id number] Social History Date Type Detail Facility Start: 11-04-2013 End: 03-28-2022 Tobacco smoking status NHIS Never smoked tobacco [facility] Start: 06-11-2021 End: 09-14-2024 Alcohol intake Current non-drinker of alcohol (finding) [facility] Start: 1945 Sex Assigned At Not on file [facility] Start: 04-06-2020 End: 03-28-2022 Exposure to SARS-CoV-2 (event) Not sure [facility] Start: 08-29-2021 Tobacco smoking stat us IAIS Unknown if ever smoked [facility] Work Phone: Start: 05-27-2018 None [facility] Start: 05-27-2018 Alone [facility] Start: 05-14-2019 Non-smoker [facility] Start: 1945 Sex Assigned At Female W [facility] Start: 11-04-2013 End: 03-28-2022 Tobacco use and exposure Smokeless tobacco non-user [facility] Start: 10-03-2022 End: 10-18-2022 History of Social function [facility] Start: 10-03-2022 End: 10-18-2022 Tobacco use panel [facility] Adult Depression Screening Assessment 0 [facility] Medical Equipment Procedure Code Equipment Code [...] 29mm Metal 9mm Patellar Asymmetric Knee - [id number] Start: 08-07-2020 Component Triath cedric 2 Pa Femoral Cruciate Retain Bead Knee Right - [id number] Start: 08-07-2020 Baseplate Triath fatimah 3 Tritanium 44mm 67mm Tibial Sterile Latex Free - [id number] Start: 08-07-2020 BRAIN ANEURYSM C OILS [...] Assessment Result Facility 08-30-2024 Functional status Chair [facility] Work Phone: 08-31-2021 Functional status Ambulates;Bath room Privilege [facility] Work Phone: 02-02-2021 Are you deaf, or do you have serious difficulty hearing No 02/02/2021 11:09 AM Corinne La, LAURITA No [facility] 02-02-2021 Are you blind, or do you have serious difficulty seeing, even when wearing glasses No 02/02/2021 11:09 AM Corinne La RN No [facility] 02-02-2021 Do you have serious difficulty walking or climbing stairs Yes 02/02/2021 11:09 AM Corinne La, LAURITA Yes [facility] 02-02-2021 Do you have difficul ty dressing or bathing Yes 02/02/2021 11:09 AM Corinne La, LAURITA Yes [facility] 02-02-2021 Because of a physica l, mental, or emotional condition, do you have difficulty doing errands alone such as visiting a physician's office or shopping Yes 02/02/2021 11:09 AM KAVYAT Corinne Del Castillo, LAURITA Yes [facility] Mental Status Date Assessment Result Facility 09-08-2024 Cognitive function Voice/Name [facility] Work Phone: 08-30-2024 Cognitive function Voice/Name [facility] Work Phone: 08-31-2021 Cognitive function Voice/Name [facility] Work Phone: 02-02-2021 Because of a physica l, mental, or emotional condition, do you have serious difficulty concentrating, remembering, or making decisions Yes 02/02/2021 11:09 AM EDT Corinne Del Castillo RN Yes [facility] Clinical Notes 05-06-2020 to 10-05-2024 Telephone [...] do not order these Brigette Casanova MA [facility] 10-05-2024 Miscellaneous Notes Formattin g of this note might be different from the original. Called daughter and went over SW note on 09/08 where she gave info for CC assessment. Advised if info taken misplaced can call [facility] and they can provide information on that since we do not order these Brigette Casanova MA documented in this encounter [facility] 09-22-2024 History of Presen t illness Narrative [facility]IGATION [facility]REACH Action/FYI Patient calling in asking to speak with Bradford Love DESIRAE or for her cell number to call her directly. Advised patient I do not have direct contact information for FRENCH TRANSLATOR but can get a message over to her. Asked patient if there was something I could help with. Patient with questions about recent medication dose change. States received new Rx at last OV for Losartan 25 mg. Asking if she is supposed to take both the 50 mg and 25 mg together or just one of them. Upon chart review [employer]ENCH TRANSLATOR decreased Losartan as BP readings have been [...] 2024 2:30 PM documented in this encounter [facility] 09-09-2024 Discharge summary [facility] 09-08-2024 Discharge summary Note Date/Time September 09, 2024 12:48am [facility] Medical Records Department [address] [place] [id number] Emergency Department Summary 09/08/24 MR#: [id number] Acct: [id number] Name: JUDI KRAUSE Rep #:[id number] : 1945 79 From: Yossi Heredia MD [...] all 4 extremities. 5 out of 5 business development recruiter strength. Dorsi plantarflexion intact. No drift. Neurologic [...] % (Auto) 56.0 Lymph % (Auto) 29.8 [place] % (Auto) 7.8 Eos % (Auto) 5.0 [...] dizziness. Return if feeling worse. Print Language: Fijian Disposition Disposition: Home, Self Care What to do if you have Problems For any increased pain, shortness of breath, bleeding, nausea or vomiting, chestpain, or any unexpected problems, contact your Primary Care Provider. Call [facility] ([phone]) or report to the closest Emergency Room. Call 911 if necessary. 09/09/24 0048 <Electronically signed by Yossi Heredia MD> Cosigner Signature (if applicable): CC: Dr. Ruddy Cooper MD ~ Signed [facility] Work Phone: [phone] 196-463205-14-2025 Telephone encounter Note* Telephone Encounter - NehemiasglendySalome streeter, LIMNOLOGIST - 09/08/2024 11:03 AM EDT Sw left patient message to call Sw back. Sw also reached out to patient daughter Sade. Sade notes that when patient was last in the hospital insurance would not cover for patient to go to rehab. Sade also notes that patient has not been open to going to chair care center. Discussed [facility] as an option for patient to reach out to in regards to home care, memory care, chair care planning. Sade and RACHID also discussed [facility] as options for [...] to Jonathon Rudolph to discuss care options. [facility]05-14-2025 Miscellaneous Notes* Telephone Encounter - Salome Perez MSW - 09/08/2024 11:03 AM EDT Sw left patient message to call Sw back. Sw also reached out to patient daughter Sade. Sade notes that when patient was last in the hospital insurance would not cover for patient to go to rehab. Sade also notes that patient has not been open to going to [facility] care center. Discussed [facility] as an option for patient to reach out to in regards to home care, memory care, chair care planning. Sade and RACHID also discussed [facility] as options for [...] to discuss care options. [facility] Telephone encounter Note * Telephone Encounter - Ruddy Cooper MD - 09/07/2024 3:15 PM EDT Appointment Friday was canceled and rescheduled with Bradford today--patient seen. [facility]05-13-2025 Miscellaneous Notes* Telephone Encounter - Ruddy Cooper MD - 09/07/2024 3:15 PM EDT Appointment Friday was canceled and rescheduled with Bradford today--patient seen. * Telephone Encounter - Jeanne Iverson MA - 09/06/2024 7:52 AM EDT See pt's Daughter, Sade's update regarding pt. Pt has Hospital f/u appt scheduled today with you. Jeanne Iverson MA [facility] [facility] Instructions* Patient Instructions* Bradford Love APRN.CNS - 09/07/2024 2:31 PM EDT I recommend staying with someone for a while for now due to your frequent falls and possible memoryproblems. A new prescription has been sent to [facility] for your blood pressure medication. Stop taking losartan 50 mg and start taking losartan 25 mg daily. Do not start or resume taking the quetiapine (the Q medication) until you have been evaluated by a real estate clerk per your preference. A driving evaluation has [...] ensure yoursafety at home. documented in this encounterWestern Reserve Hospital05-13-2025 History of Present illness Narrative* Bradford [...] Neuropathy, Without Long-Term Current Use of Insulin (Formerly [facility]) History of Cva (Cerebrovascular Accident) Dyspepsia Closed [...] discharge follow-up visit. She was seen at [facility] August 25 through August 30, 2024 [...] the patient's daughter who is power of city attorney to review her current status. Daughter [...] over whenever she needs him, lives in [place]. She also has a friendwith a full time staff interpreter job that cn come over to help at times Falls: report none since discharge Tushar Krause is local son. [place]. . No complaints of UTI symptoms, states [...] discharge. - Living alone; son lives in [place], but Judi prefers to stay at her [...] Abs Lymph 1.00 - 4.00 k/uL 2.34 [place]% % 8.6 Abs [place] <0.87 k/uL 0.71 [place]% % 3.3 Abs [...] time - Referred to Dr. Meyer, a real estate clerk, for further evaluation and management of dementia and behavioral disturbances. Declined to schedule at this time. - Discussed the importance of having someone stay with the patient temporarily to monitor for fallsand ensure safety. - Recommended holding off on quetiapine until evaluation by real estate clerk. - Advised family to consider assisted living or home care services to ensure patient safety. Judi Krause declined [facility] at this time 3. Failure to [...] dosage by half; [facility].. 5. Urinary tract infection without hematuria, [...] Level: 4 - Moderate documented in this encounterWestern Reserve Hospital05-12-2025 Telephone encounter Note * Telephone Encounter - Jeanne Iverson MA - 09/06/2024 7:52 AM EDT See pt's Daughter, Sade's update regarding pt. Pt has Hospital f/u appt scheduled today with you. Jeanne Iverson MA [facility]05-07-[facility] History of Present illness Narrative* Lamar [...] with PCP --END CALL documented in this encounterWestern Reserve Hospital05-07-2025 History of Present illness Narrative* Jocelyn Hudson MA - 09/01/2024 9:38 AM EDT POPULATION HEALTH NAVIGATION OUTREACH Action/FYI Community Monitoring Navigation Pool/TCM TCM eligible through 09/13/2024 Pt discharged from [facility] on 08/30/2024 Admitted for: Fall, Failure [...] Scheduled Hematology Patient reports going to outside [facility] for Dilated Retinal Exam Reason for Outreach [...] risk 10-14% Specialty Scheduling 09/06/2024 in [facility] with RUDDY COOPER - Hospital Follow Up/TCM eligible through 09/13/2024- HCC Gap Closure , Pt discharged from [facility] on 08/30/2024, Admitted for: Fall, Failure tothrive , Highest Readmission Risk Score: N/A 09/14/2024 in [facility] with RAPHAEL PERDOMO - 6 MO OV 12/06/2024 in [facility] with BRADFORD LOVE - 2024 Medicare Wellness Z00.00/HCC Gap Closure 01/06/2025 in [facility] with SCREEN MAMMO [facility] - Encounter for screening mammogram for breast cancer [Z12.31] 03/01/[address] [facility]AN [facility] with CT [facility] (I-STAT) - Dx: Nonruptured cerebral aneurysm [...] [facility] Admitted for falls and failure to thrive [...] TCM Home Visit Referral Source of Stratification: [facility] Hospital Admission Status: Discharged Readmission Risk Score: na Patient's zip code: Is zip code within program service area: Patient meets program referral criteria: No Patient does not qualify for High Risk TCM Home Visit program due to: Readmission Risk Score does not meet criteria Disposition: Patient does not qualify for HRTIC, will provide TCM outreach follow-up for 30-days Patient Source: [facility] (OON) Discharge Outreach Summary: Feels much better at home. [place] she did not get quality care at [facility] Offered emotional support Pt lives alone [...] contact PCP or H@H Patient discharged from [place] [facility] Discharge date: 08/30/24 Admitted for: Fall, Failure to thrive Readmission Risk: n/a Value-Based Contract: Moriah OLIVERA Contact: Contact made with patient: Yes Hi, my name is Lamar De Leon RN and I am calling from the [facility] on behalf of your Primary Care [...] further. Routed to RX 4C Medication Question ([id number]) and indicate in Pharmacy Box Medication Review: [...] I will send your request to a planner scheduler who will contact and assist you with [...] 01, 2024 9:03 AM documented in this encounterWestern Reserve Hospital05-05-2025 [facility] Medical Records Department [address] [place] [id number] Discharge Summary 08/30/24 1406 MR#: [id number] Acct: [id number] Name: JUDI KRAUSE Rep #: [id number] : 1945 79 From: Jose Mariee DO PCP: Dr. Ruddy Cooper MD Status:ADM IN Location: [facility] [id number] Providers Date of Admission: 08/25/24 Primary Care [...] Plan is for the patient go to alf facility but during the course of her [...] her. The patient's son who resides in [place] was out of the country and so social work to speak with the patient's daughters and since she was walking around she well she would not qualify to go to a alf facility so the plan is for her [...] Care Charges/Coding Visit Charges Inpatient E M: 99981 Disch Hosp >30min 08/30/24 1412 Cosigner Signature (if applicable): CC: Dr. Jose Mariee DO; Dr. Ruddy Cooper MD [facility] Telephone encounter Note* Telephone Encounter - Raphael Perdomo APRN.FRENCH TRANSLATOR - 08/26/2024 8:22 AM EDT Noted. Sorry to hear that. Raphael Perdomo APRN.CNP [facility]05-01-2025 Miscellaneous Notes* Telephone Encounter - Raphael Perdomo APRN.CNP - 08/26/2024 8:22 AM EDT Noted. Sorry to hear that. Raphael Perdomo APRN.DESIRAE * Telephone Encounter - Isha Kaur - 08/26/2024 8:12 AM EDT Patient's daughter called to cancel 08/26 appointment with Raphael due to falling last night. [facility]. Isha Kaur documented in this encounterWestern Reserve Hospital05-01-2025 Telephone encounter Note * Telephone Encounter - Isha Kaur - 08/26/2024 8:12 AM EDT Patient's daughter called to cancel 08/26 appointment with Raphael due to falling last night. [facility]. Isha Kaur [facility]05-01-[facility] Evaluation note* Diagnosis Onset Date Resolution Status Admit Date Adult failure to thrive resolved A pril 2024 11:50pm Multiple falls resolved July 11:50pm Physical debility resolved July 292024 11:50pm [facility] Work Phone: 1(569) 912-228404-29-2025 Telephone encounter Note* Telephone Encounter - Sarah Bain RN - 08/24/2024 12:58 PM EDT Daughter inquiring about lab results. Lipid panel with multiple elevated values. Have you received any outside charts for her. I have not seen anything, but someone else could have put on your desk without putting in an encounter. [facility]04-29-[facility]25 Miscellaneous Notes* Telephone Encounter - Sarah Bain RN - 08/24/2024 12:58 PM EDT Daughter inquiring about lab results. Lipid panel with multiple elevated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 - [...] would need a new prescription sent to [facility] if provider agreeable to change. Poornima Zavala RN [facility]10-01-2024 History of Present illness Narrative* Ruddy Cooper MD - 01/27/2024 11:06 PM EDT Left without being seen documented in this encounterWestern Reserve Hospital10-01-2024 History of Present illness Narrative* Charleen Rocha, PT - 01/27/2024 1:39 PM EDT Program_ID:[id number] Access Code: [email or web address] URL: [email or web address] Date: 01-27-2024 Prepared By: Charleen Rocha Program [...] and treatment included: Therapeutic exercise, Neuromuscular re-education, Self-snf management, and Gait training. Goals for Episode [...] decreased fall risk. -- MET, 11 reps [place] in home exercise program including cardiovascular exercise. [...] 1:1 throughout, subjective collected 2: *Access Code: [email or web address] URL: [email or web address] Date: 01/27/2024 Prepared by: Charleen Santos Exercises [...] with an (*). Patient education as noted. Self-[facility] Management: 1: discused that pt. demonstrates improvement [...] 1406 Charleen Rocha PT documented in this encounterWestern Reserve Hospital09-24-2024 History of Present illness Narrative* Charleen [...] 1403 Charleen Rocha PT documented in this encounterWestern Reserve Hospital09-17-2024 History of Present illness Narrative* Charleen [...] 1151 Charleen Rocha PT documented in this encounterWestern Reserve Hospital09-12-2024 Telephone encounter Note * Telephone Encounter - Malu Calhoun RN - 01/08/2024 2:39 PM EDT Patient informed of prescription. Malu Calhoun RN [facility]09-12-2024 Miscellaneous Notes* Telephone Encounter - Malu [...] Calhoun RN - 01/07/2024 2:41 PM EDT [facility] Care Coordination FOLLOW-UP NOTE Patient identified by [...] she stopped taking Aromasin. documented in this encounterWestern Reserve Hospital09-12-2024 Telephone encounter Note * Telephone Encounter - Raphael Perdomo APRN.CNP - 01/08/2024 1:47 PM EDT The following approved medication requests have been transmitted electronically. Requested Prescriptions Signed Prescriptions Disp Refills letrozole (FEMARA) 2.5 mg tablet 90 tablet 3 Sig: Take 1 tablet by mouth once daily. Authorizing Provider: RAPHAEL PERDOMO APRN.CNP [facility]09-12-2024 Telephone encounter Note* Telephone Encounter - Malu Calhoun RN - 01/08/2024 9:19 AM EDT Patient called stated she would like to retry Femara instead of anastrozole. Patient aware this nurse will discuss with Raphael and call her back with further instructions. Malu Calhoun RN [facility]09-11-[facility]24 Note* Letter - [facility]amm[facility] - 01/07/2024 9:09 PM EDT January 08, 2024 PID: [id number] Judi Krause [address] [place] [address] Dear Ms. Krause, We are pleased to [...] report will be kept on file at [facility] as part of your permanent medical record and are available for your continuing care. Thank you for allowing us to help in meeting your health care needs. Sincerely, Dr. Saunders Interpreting Radiologist [facility] (Normal over 40) [facility]09-11-2024 Miscellaneous Notes* Letter - Coordinator Mammography - 01/07/2024 9:09 PM EDT January 08, 2024 PID: [id number] Judi Krause [address] [place] [address] Dear Ms. Krause, We are pleased to [...] report will be kept on file at [facility] as part of your permanent medical record and are available for your continuing care. Thank you for allowing us to help in meeting your health care needs. Sincerely, Dr. Saunders Interpreting Radiologist [facility] (Normal over 40) documented in this encounterWestern Reserve Hospital09-11-2024 Telephone encounter Note * Telephone Encounter - Malu Calhoun RN - 01/07/2024 2:41 PM EDT De [...] Raphael. Malu Calhoun RN January 07, 2024 [facility]09-11-[facility] Telephone encounter Note* Telephone Encounter - Liliane Alcantara - 01/07/2024 12:32 PM EDT Patient called stating she is doing really well since she stopped taking Aromasin. [facility] Work Phone: 1(751) 224-791509-10-2024 History of Present illness Narrative* Charleen Rocha, [...] 1355 Charleen Rocha PT documented in this encounterWestern Reserve Hospital09-10-2024 History of Present illness Narrative* Lul [...] PATIENT PRESENTS WITH AN IMPLANTABLE OR ATTACHED GUNCOTTON PACKER: No RADIOLOGY DEPARTMENT: Mammography PERIPHERAL IV DATA: Not applicable SIGNED BY: Jose Ribera January 06, 2024 1:56 PM documented in this encounterWestern Reserve Hospital09-05-2024 Telephone encounter Note * Telephone Encounter - Bradford Love APRN.EDGE CUTTING MACHINE OPERATOR - 01/01/2024 12:12 PM EDT ok, schedule please [facility]09-05-2024 Miscellaneous Notes* Telephone Encounter - Bradford Love APRN.CNS - 01/01/2024 12:12 PM EDT ok, schedule please * Telephone Encounter - Birgit Gonzalez LPN - 01/01/2024 11:48 AM EDT Pt called back to check status if this has been signed yet. Routing to [facility] for approval. Birgit Gonzalez LPN * Telephone Encounter - Tosha Lima LPN - 01/01/2024 9:21 AM EDT Patient calling asking for her yearly mamm order, she does 3 D mamm. Pending order to file. Please advise documented in this encounterWestern Reserve Hospital09-05-2024 Telephone encounter Note * Telephone Encounter - Birgit Gonzalez LPN - 01/01/2024 11:48 AM EDT Pt called back to check status if this has been signed yet. Routing to [facility] for approval. Birgit Gonzalez LPN [facility]09-05-2024 Telephone encounter Note* Telephone Encounter - Tosha Lima LPN - 01/01/2024 9:21 AM EDT Patient calling asking for her yearly mamm order, she does 3 D mamm. Pending order to file. Please advise [facility] Telephone encounter Note* Telephone Encounter - [...] rescheduled her appointment for tomorrow at the [place] office. Patient declined due to another appointment in [place]. I looked at other locations for her [...] the call and information. Chasity Zuleta MA [facility]09-05-2024 Miscellaneous Notes* Telephone Encounter - Chasity [...] rescheduled her appointment for tomorrow at the [place] office. Patient declined due to another appointment in [place]. I looked at other locations for her [...] information. Chasity Zuleta MA documented in this encounterWestern Reserve Hospital08-28-2024 Telephone encounter Note * Telephone Encounter - Malu Calhoun RN - 12/24/2023 9:00 AM EDT Patient notified of Raphael's response, stated understanding. Malu Calhoun RN [facility]08-28-2024 Miscellaneous Notes* Telephone Encounter - Malu Calhoun RN - 12/24/2023 9:00 AM EDT Patient notified of Raphael's response, stated understanding. Malu Calhoun RN * Telephone Encounter - Angélica Chaney - 12/23/2023 4:59 PM EDT Patient returned call, but After School Program Assistant was not available. Please return call to [...] had not started metformin yet. Raphael Perdomo APRN.FRENCH TRANSLATOR * Telephone Encounter - Malu Calhoun RN - 12/23/2023 9:53 AM EDT Care Coordination Triage Note [facility] Situation: Patient reports Other emesis, falls, lightheadedness [...] stomach. Recommendations: Per RNCC, will speak to [place]. Patient is asking if she should resume [...] was making her sick. documented in this encounterWestern Reserve Hospital08-27-2024 Telephone encounter Note * Telephone Encounter - Angélica Chaney - 12/23/2023 4:59 PM EDT Patient returned call, but After School Program Assistant was not available. Please return call to patient. Angélica Chaney [facility]08-27-2024 Telephone encounter Note* Telephone Encounter - Malu Calhoun RN - 12/23/2023 3:10 PM EDT [place] Care Coordination FOLLOW-UP NOTE Called patient, no answer, left a VM requesting a call back from patient. Care Coordination Plan: see above Malu Calhoun RN December 23, 2023 [facility] Telephone encounter Note* Telephone Encounter - [...] not started metformin yet. Raphael Perdomo APRN.CNP [facility]08-27-2024 Telephone encounter Note* Telephone Encounter - Bradford Love APRN.CNS - 12/23/2023 2:13 PM EDT Noted. [facility]-27-[facility] Miscellaneous Notes* Telephone Encounter - Bradford Love APRN.CNS - 12/23/2023 2:13 PM EDT Noted. * Telephone Encounter - Salome Perez MSW - 12/23/2023 1:56 PM EDT Rachid called and spoke with patient daughter Sade. Rachid noted that she has not found Medicare to pay for medical alert button. Medicaid often times will if someone is on Passport/Medicaid Waiver program. Rachid noted [facility] has listing of medical alert button options. Rachid provided daughter with [facility] [employer] number [phone] to call and see about medical alert button listing. Sade thanked Rachid for the call and notes that she will reach out to [facility] [employer]. * Telephone Encounter - Birgit Gonzalez LPN - 12/23/2023 9:50 AM EDT Daughter notified and routing this to RACHID Mcmahon to call daughter to give help on how to order and where to go for this. Birgit Gonzalez LPN * Telephone Encounter - Bradford Love APRN.EDGE CUTTING MACHINE OPERATOR - 12/22/2023 12:26 PM EDT Do [...] daughter. Birgit Gonzalez LPN documented in this encounterWestern Reserve Hospital08-27-2024 Telephone encounter Note * Telephone Encounter - Salome Perez MSW - 12/23/2023 1:56 PM EDT Rachid called and spoke with patient daughter Sade. Rachid noted that she has not found Medicare to pay for medical alert button. Medicaid often times will if someone is on Passport/Medicaid Waiver program. Rachid noted [facility] [employer] has listing of medical alert button options. Rachid provided daughter with [facility] [employer] number [phone] to call and see about medical alert button listing. Sade thanked Rachid for the call and notes that she will reach out to [facility] [employer]. [facility]-27-[facility] Telephone encounter Note* Telephone Encounter - Malu Calhoun RN - 12/23/2023 9:53 AM EDT Care Coordination Triage Note [facility] Situation: Patient reports Other emesis, falls, lightheadedness [...] stomach. Recommendations: Per RNCC, will speak to [place]. Patient is asking if she should resume the medication or continue holding. Malu Calhoun RN December 23, 2023 9:53 AM [facility] Telephone encounter Note* Telephone Encounter - Birgit Gonzalez LPN - 12/23/2023 9:50 AM EDT Daughter notified and routing this to RACHID Mcmahon to call daughter to give help on how to order and where to go for this. Birgit Gonzalez LPN T [facility]08-26-2024 Telephone encounter Note* Telephone Encounter - [...] starting any new medications. Caryn Hernandez LPN [facility]08-26-2024 Telephone encounter Note* Telephone Encounter - Liliane Alcantara - 12/22/2023 12:45 PM EDT Patient called stating that she quit taking Aromasin 8 days ago due to vomiting. She read that she is to take the medication the same time every day and states she was not. She is asking if this is possibly what was making her sick. [facility] Work Phone: 1(742) 139-432108-26-2024 Telephone encounter Note* Telephone Encounter - Bradford Love APRN.CNS - 12/22/2023 12:26 PM EDT Do not think these are covered but she can try. Order in. [facility]08-26-2024 Telephone encounter Note* Telephone Encounter - [...] this. Please advise daughter. Birgit Gonzalez LPN [facility]08-23-2024 Telephone encounter Note* Telephone Encounter - Bradford Love APRN.CNS - 12/19/2023 11:03 AM EDT note below. 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 (Patient not taking: Reported on 09/05/2023) [id number] (GLUCOSAMINE CHONDROITIN PLUS) [id number] mg cap Take 1 capsule by mouth [...] Abs Lymph 1.00 - 4.00 k/uL 1.60 [place]% % 8.3 Abs [place] <0.87 k/uL 0.63 Eosin% % 2.8 Abs [...] V80.2, ICD10: Z13.5 She is followed by account manager trainee. 5. Encounter for immunization - ICD9: V03.89, [...] life alert or similar. Message sent via [employer]. Keep appointment with PCP in February. Will route chart to hematology oncology so they are aware not currently taking Aromasin. Bradford Love APRN.EDGE CUTTING MACHINE OPERATOR Medical Decision Making: Problems: Moderate: New problem with uncertain prognosis and 2+ stable chronic illnesses Data: Unique test result(s) reviewed: 3+ Unique test(s) ordered: 1 Risk: Moderate: Drug management Medical Decision Making Level: 4 - Moderate documented in this encounterWestern Reserve Hospital08-23-2024 Telephone encounter Note * Telephone Encounter [...] Please review and advise, Angélica Parkinson RN [facility]08-20-2024 History of Present illness Narrative* Charleen [...] decreased fall risk. -- MET, 11 reps [place] in home exercise program including cardiovascular exercise. [...] Patient to be seen for Gait Training (81111), Self-snf management (17770), Therapeutic activities (97142), Manual therapy (28248), Neuromuscular re- education (86258), Therapeutic exercise (70146) PLAN FOR NEXT VISIT: amb in // [...] 1828 Charleen Rocha PT documented in [place] encounterJames [place]ille [address]-12-2024 History of Present illness Narrative* Charleen Rocha, [...] OF FUNCTION: TREATMENT: Therapeutic Exercise: 1: seated [employer] nustep seat 16, level 2, 5 min [...] 1300 Charleen Rocha PT documented in this encounterWestern Reserve Hospital07-31-2024 History of Present illness Narrative* Charleen [...] decreased fall risk. -- MET, 11 reps [place] in home exercise program including cardiovascular exercise. Patient will demonstrate independent and proper use of assisstive device to allow for improved walking quality and safety therefore reducing the risk of falls. -- MET Patient Goals: amb in her neighborhood or at [facility] with AD for 10-15 minutes -- MET NEW GOAL 11/03/23 score -- PROGRESSING Patient Goals: improve confidence with stair negociation using x1 HR and SC with or without reciprocal pattern. Planned Interventions, Frequency, and Duration: 2x/week, 3 weeks Total Number of Visits Planned: 6 Patient to be seen for Gait Training (27384), Self-snf management (17144), Therapeutic activities (88180), Manual therapy (13729), Neuromuscular re- education (92793), Therapeutic exercise (67337) PLAN FOR NEXT VISIT: Pt. requests to [...] 1224 Charleen Rocha PT documented in this encounterWestern [facility]07-30-[facility] Telephone encounter Note * Telephone Encounter - Christa Sandoval RN - 11/25/2023 4:05 PM EDT Patient returned call and given provider's message below. Patient states she will try the nortriptyline 100 gm at bedtime. Zaid Sandoval RN [facility]07-30-2024 Miscellaneous Notes* Telephone Encounter - Christa [...] advise. Marylin Camacho LPN documented in this encounterWestern Reserve Hospital07-30-2024 Telephone encounter Note * Telephone Encounter - Joanna Templeton LPN - 11/25/2023 12:09 PM EDT Left message for patient to return call [facility]07-30-[facility] Telephone encounter Note* Telephone Encounter - Bradford Love APRN.EDGE CUTTING MACHINE OPERATOR - 11/25/2023 11:46 AM EDT If she is feeling well with the nortriptyline 75 mg we can try increasing to 100 mg at bedtime. Sheshould let us know if she does not feel well with the change and return back to 75 mg dosing. [facility]07-30-[facility] Telephone encounter Note* Telephone Encounter - Marylin Camacho LPN - 11/25/2023 10:16 AM EDT Last OV: 09/08/23 Pt reports provider increased nortriptyline to 75 mg and that has helped her hands some. Pt is asking if medication can be increased to 100 mg to see if that would help more. Please review and advise. Marylin Camacho LPN [facility]07-29-[facility]24 History of Present illness Narrative* Charleen [...] amb in her neighborhood or at [facility] with AD for 10-15 minutes Functional [...] 1253 Charleen Rocha PT documented in this encounterWestern Reserve Hospital07-24-2024 History of Present illness Narrative* Charleen [...] 1320 Charleen Rocha, PT documented in this encounterWestern Reserve Hospital07-22-2024 History of Present illness Narrative* Charleen [...] amb in her neighborhood or at the [facility] with AD for 10-15 minutes Functional [...] and tactile cueing. Patient education as noted. [facility] Management: 1: discussed that fear of falling [...] 1300 Charleen Rocha PT documented in this encounterWestern Reserve Hospital07-15-2024 History of Present illness Narrative* Jin [...] ARA Lobato, PT, DPT. documented in this encounterWestern Reserve Hospital07-11-2024 History of Present illness Narrative* Charleen [...] 1140 Charleen Rocha PT documented in this encounterWestern Reserve Hospital07-08-2024 History of Present illness Narrative* Charleen [...] decreased fall risk. -- PROGRESSING, 9 reps [place] in home exercise program including cardiovascular exercise. [...] Patient to be seen for Gait Training (81641), Self-snf management (60937), Therapeutic activities (17644), Manual therapy (96544), Neuromuscular re- education (53137), Therapeutic exercise (09191) PLAN FOR NEXT VISIT: continue stepping over [...] 1308 Charleen Rocha PT documented in this encounterWestern Reserve Hospital07-03-2024 History of Present illness Narrative* Charleen [...] amb in her neighborhood or at [facility] with AD for 10-15 minutes Functional [...] 6x6 obstacles with SC 6x 20' with TUMBLER PLATER and SC (attempted with just SC and [...] 1400 Charleen Rocha PT documented in this encounterWestern Reserve Hospital07-01-2024 History of Present illness Narrative* Charleen [...] 1351 Charleen Rocha PT documented in this encounterWestern Reserve Hospital06-27-2024 Telephone encounter Note * Telephone Encounter [...] nap I've been fine. Paty Jason RN [facility]06-27-2024 Miscellaneous Notes* Telephone Encounter - Paty [...] on pt. Sade states she lives in [place] but her brother lives in [place]. Sade will continue to try and call [...] car. Christie Deleon LPN documented in this encounterWestern Reserve Hospital06-27-2024 Telephone encounter Note * Telephone Encounter [...] on pt. Sade states she lives in [place] but her brother lives in [place]. Sade will continue to try and call her mother and contact her brother. She will call us back or have the pt call us. Explained to daughter that we can have the police go do a welfare check on her. She states she will get back to us. [facility]06-26-[facility] Telephone encounter Note* Telephone Encounter - [...] Patient walk to car. Christie Deleon LPN [facility] Work Phone: 1(676) 262-130806-26-2024 History of Present illness Narrative* Charleen Rocha, PT - 10/22/2023 12:24 PM EDT Pt. reports she feels very SOB upon entering clinic. Presents without SC. Carries a heavy bag. [id number] and instructed to take a seated rest. [...] and continues to refuse for PT or ASSOCIATE MATERIAL HANDLER to call for assistance or medical attention. PT explains the concern with pt.Driving herself home and the possibility that she would have difficulty getting into her house safely. ASSOCIATE MATERIAL HANDLER and PT assist pt. to w/c. Charleen Rocha, PT, DPT documented in this encounterWestern Reserve Hospital06-24-2024 History of Present illness Narrative* Charleen Rocha, PT - 10/20/2023 3:54 PM EDT Program_ID:[id number] Access Code: [email or web address] URL: [email or web address] Date: 10-20-2023 Prepared By: Charleen Rocha Program [...] amb in her neighborhood or at the [facility] with AD for 10-15 minutes Pain: [...] % TREATMENT: Therapeutic Exercise: 1: *Access Code: [email or web address] URL: [email or web address] Date: 10/20/2023 Prepared by: Charleen Santos Exercises [...] belt and SC. Patient education as noted. [facility] Management: 1: discussed at length the importance [...] 1556 Charleen Rocha PT documented in this encounterWestern Reserve Hospital06-24-2024 NoteHNO ID: [id number] Author: CHARLEEN ROCHA PT Service: ? Author [...] amb in her neighborhood or at the [facility] with AD for 10-15 minutes Pain: [...] % TREATMENT: Therapeutic Exercise: 1: *Access Code: [email or web address] URL: [email or web address] Date: 10/20/2023 Prepared by: Charleen Rcoha Exercises - Seated Transversus Abdominis Bracing with [...] belt and SC. Patient education as noted. [facility] Management: 1: discussed at length the importance [...] Session Stop Time : 1556 Charleen Rocha, [facility]06-18-2024 History of Present illness Narrative* Roslyn Murray [...] PATIENT PRESENTS WITH AN IMPLANTABLE OR ATTACHED GUNCOTTON PACKER: No RADIOLOGY DEPARTMENT: General X-ray: Exam(s) Completed: Lower Extremity X- Ray(s): Ankle, Left and Foot, Left PERIPHERAL IV DATA: Not applicable SIGNED BY: RT Marco(R) October 14, 2023 12:15 PM documented in this encounterWestern Reserve Hospital06-18-2024 NoteHNO ID: [id number] Author: ROSLYN MURRAY RT(R) Service: Radiology Author [...] PATIENT PRESENTS WITH AN IMPLANTABLE OR ATTACHED GUNCOTTON PACKER: No RADIOLOGY DEPARTMENT: General X-ray: Exam(s) Completed: Lower Extremity X-Ray(s): Ankle, Left and Foot, Left PERIPHERAL IV DATA: Not applicable SIGNED BY: GAMALIEL Lara) October 14, 2023 12:15 [facility]06-18-2024 NoteHNO ID: [id number] Author: RUIZ SERRATO APRN.FRENCH TRANSLATOR Service: ? Author Type: Nurse Practitioner Type: [...] Right OPEN TREATMENT,TRIMALLEOLAR ANKLE FRACTURE Right 05/29/2018 [facility] PICC LINE INSERT/CONSULT 01/23/2021 PICC [...] Take 81 mg by mouth once daily. ypeh-ermta-rh8-yxw-pmc-ommc-st (GLUCOSAMINE CHONDROITIN PLUS) [id number] mg cap Take 1 capsule by mouth [...] Negative for chest pain. (more content not included)...[facility]06-18-2024 History of Present illness Narrative* Ruiz Serrato APRN.FRENCH TRANSLATOR - 10/14/2023 12:05 PM EDT Subjective HPI [...] Right OPEN TREATMENT,TRIMALLEOLAR ANKLE FRACTURE Right 05/29/2018 [facility] PICC LINE INSERT/CONSULT 01/23/2021 PICC [...] Take 81 mg by mouth once daily. xlkt-fmbzn-nh4-jwf-rbt-qvaa-st (GLUCOSAMINE CHONDROITIN PLUS) 118-267-49-54 mg cap Take 1 capsule by mouth [...] of care. This note was generated using [employer] software. It may contain errors in wording, punctuation, or spelling. Ruiz Serrato APRN.FRENCH TRANSLATOR documented in this encounterWestern Reserve Hospital06-18-2024 Telephone encounter Note * Telephone Encounter - Paola Duff LPN - 10/14/2023 7:26 AM EDT Encounter routed to PSS to assist patient in scheduling. [facility]06-18-[facility] Miscellaneous Notes* Telephone Encounter - Paola [...] pt. Please send in new orders to [facility]. Birgit Gonzalez LPN * Telephone Encounter - Ruddy Cooper MD - 10/09/2023 5:14 PM EDT Patient already has a PT order according to [facility]. Does she need another order? * Telephone [...] on CT abd/pel results. documented in this encounterWestern Reserve Hospital06-17-2024 Telephone encounter Note * Telephone Encounter - Ruddy Cooper MD - 10/13/2023 4:56 PM EDT Filed order for PT [facility]06-14-2024 Telephone encounter Note* Telephone Encounter - Birgit Gonzalez LPN - 10/10/2023 9:31 AM EDT No orders showing for the PSRs to schedule pt. Please send in new orders to [facility]. Birgit Gonzaelz LPN [facility]06-13-2024 Telephone encounter Note* Telephone Encounter - Ruddy Cooper MD - 10/09/2023 5:14 PM EDT Patient already has a PT order according to [facility]. Does she need another order? [facility]06-07-20[facility] Telephone encounter Note* Telephone Encounter - Paola Duff LPN - 10/03/2023 11:15 AM EDT Patient notified of providers message and verbalized understanding. Patient would like to pursue PT. Please place order [facility]06-06-2024 Telephone encounter Note* Telephone Encounter - [...] Consider Physical therapy for evaluation and treatment. [facility]06-06-2024 Telephone encounter Note* Telephone Encounter - Genia Ackerman, RN - 10/02/2023 4:28 PM EDT Patient asking pcp to review and advise on CT abd/pel results. [facility]06-03-2024 History of Present illness Narrative* Charleen Rocha, PT - 09/29/2023 2:19 PM EDT Program_ID:[id number] Access Code: [email or web address] URL: [email or web address] Date: 09-29-2023 Prepared By: Charleen Rocha Program [...] more repetitions to reflect decreased fall risk. [place] in home exercise program including cardiovascular exercise. [...] Planned: 12 Planned Treatment Interventions: Gait Training (86177), Self-snf management (51283), Therapeutic activities (06141), Manual therapy (92156), Neuromuscular re-education (39422), Therapeutic exercise (79984) PLAN FOR NEXT VISIT: DGI and step [...] Demonstration TREATMENT: PT Treatment Interventions: Therapeutic Exercise, [facility] Evaluation Therapeutic Exercise: 1: *Access Code: [email or web address] URL: [email or web address] Date: 09/29/2023 Prepared by: Charleen Santos Exercises [...] and function . Patient education as noted. [facility] Management: 1: suggestd use of cane 2: [...] 1433 Charleen Rocha PT documented in this encounterWestern Reserve Hospital06-03-2024 NoteHNO ID: [id number] Author: CHARLEEN ROCHA PT Service: ? Author [...] more repetitions to reflect decreased fall risk. [place] in home exercise program including cardiovascular exercise. [...] Planned: 12 Planned Treatment Interventions: Gait Training (73696), Self-snf management (60654), Therapeutic activities (21813), Manual therapy (82091), Neuromuscular re-education (70361), Therapeutic exercise (71482) PLAN FOR NEXT VISIT: DGI and step [...] 2 (sec) : 1 (more content not included)...[facility]05-31-2024 History of Present illness Narrative* Nelly Pacheco [...] PATIENT PRESENTS WITH AN IMPLANTABLE OR ATTACHED GUNCOTTON PACKER: No RADIOLOGY DEPARTMENT: CT; Exam(s) Completed: Abdomen/Pelvis PERIPHERAL IV DATA: Not applicable SIGNED BY: RT Julianna(Huy) September 26, 2023 4:16 PM documented in this encounterWestern Reserve Hospital05-20-2024 Miscellaneous Notes* Telephone Encounter - Bradford Love APRN.EDGE CUTTING MACHINE OPERATOR - 09/15/2023 2:45 PM EDT ok [...] lisinopril from her list. documented in this encounterWestern Reserve Hospital05-20-2024 Telephone encounter Note * Telephone Encounter - Bradford Love APRN.CNS - 09/15/2023 2:45 PM EDT ok [facility]05-20-[facility] Telephone encounter Note* Telephone Encounter - [...] and please remove lisinopril from her list. [facility]05-15-20[facility] History of Present illness Narrative* Raphael [...] strongly ER+ in 99% of cells, strongly AR+ in 99% of cells, and HER2-negative (0 [...] started this yet. Her BS today is [id number]. Appetite:Eh. Wt. stable. Energy level:Fair. Denies fevers [...] re- excision. It's ER positive (99%, strong), AR positive (99%, strong) and Her2/maria a 0. [...] visit. Raphael Perdomo APRN.CNP documented in this encounterWestern Reserve Hospital05-13-2024 Instructions* Patient Instructions* Bradford Love APRN.CNS [...] diarrhea with this medication. documented in this encounterWestern Reserve Hospital05-13-2024 History of Present illness Narrative* Bradford [...] Neuropathy, Without Long-Term Current Use of Insulin ([facility]) History of Cva (Cerebrovascular Accident) Dyspepsia Closed [...] surgery was a tummy tuck completed at [facility] in [place]. She is followed by [facility] hematology oncology for breast cancer, last seen [...] Take 81 mg by mouth once daily. mzee-xmsnq-uz1-dxy-ams-yxuw-st (GLUCOSAMINE CHONDROITIN PLUS) [id number] mg cap Take 1 capsule by mouth [...] use: Never The 10-year ASCVD risk score (Naitvidad CHAVIRA, et al., 2019) is: 43.9% Values [...] PNEUMOCOCCAL VACCINE, 20 VALENT (PREVNAR 20) - [employer] [facility] COVID-19 VACCINE (2022- [place]) AGE 12+ YR [...] or diarrhea with this medication. Bradford Love APRN.EDGE CUTTING MACHINE OPERATOR Medical Decision Making: Problems: Moderate: New problem with uncertain prognosis and 2+ stable chronic illnesses Data: Unique test(s) ordered: 1 Risk: Moderate: Drug management Medical Decision Making Level: 4 - Moderate documented in this encounterWestern Reserve Hospital02-16-2024 Miscellaneous Notes* Telephone Encounter - Genia [...] pt. Birgit Gonzalez LPN documented in this encounterWestern Reserve Hospital01-29-2024 Instructions* Patient Instructions* Ruddy Cooper MD - 05/26/2023 4:55 PM EST Topical magnesium and oral magnesium can help with muscle cramping. Theraworx is one of the brands. Avoid bending from the back--bend from hips so not shortening the abdominal muscles. Do stretching exercises for abdominal muscles. documented in this encounterWestern Reserve Hospital01-29-2024 History of Present illness Narrative* Ruddy Cooper MD - 05/26/2023 4:06 PM EST This note was created using [employer]. Subjective Judi Krause is a 78 year [...] Take 100 mcg by mouth once daily. herd-aondq-bu1-lss-oky-bujq-st (GLUCOSAMINE CHONDROITIN PLUS) [id number] mg cap Take 1 capsule by mouth [...] the date of the service which included mvuh-pm-fpey patient care, completing clinical documentation, obtaining and/or reviewing separately obtained history, performing a medically appropriate examination, counseling and educating the patient/family/caregiver, ordering medications, tests, or procedures, independently interpreting results (not separately reported), and communicating results to the patient/family/caregiver. Ruddy Cooper MD documented in this encounterWestern Reserve Hospital12-07-2023 History of Present illness Narrative* Sarah Lloyd LPN - 04/03/2023 2:04 PM EST Est. Pt. Discuss recent labs 6 month F/U Sarah Lloyd LPN * Raphael Perdomo, SHAHID.FRENCH TRANSLATOR - 04/03/2023 1:45 PM EST Chief Complaint [...] strongly ER+ in 99% of cells, strongly AR+ in 99% of cells, and HER2-negative (0 [...] re- excision. It's ER positive (99%, strong), AR positive (99%, strong) and Her2/maria a 0. [...] visit. Raphael Perdomo APRN.DESIRAE documented in this encounterWestern Reserve Hospital11-14-2023 Miscellaneous Notes* Telephone Encounter - Melani Zuniga RN - 03/11/2023 9:59 AM EST Called patient regarding recently completed MRA that Dr. Joens reviewed and visualized stability of treated and [...] point. Melani Zuniga RN documented in this encounterWestern Reserve Hospital11-02-2023 History of Present illness Narrative* Julianne [...] gauge. RADIOLOGY DEPARTMENT: MR; Exam(s) Completed: Head: [place] MRA SIGNATURE: RT Bridget(Huy) PATIENT NAME: Judi Krause DATE: February 27, 2023 TIME: 12:12 PM documented in this encounterWestern Reserve Hospital11-01-2023 Miscellaneous Notes* Telephone Encounter - Beronica Navarro - 02/26/2023 10:29 AM EDT Patient scheduled. Closing encounter. * Telephone Encounter - Kiana Mcpherson LPN - 02/26/2023 10:18 AM EDT Detailed message left for patient to call office need to scheduled the next two 3 month follow up appointments with Dr. Cooper. documented in this encounterWestern Reserve Hospital09-08-2023 NoteIMPRESSION: INCOMPLETE: NEEDS ADDITIONAL IMAGING EVALUATION [...] made to exams dated: 07/24/2022 [facility] - [facility], [facility], and [facility] - [facility]. Real-time ultrasound of the right breast [...] Health, Family Medicine, and Medical/Surgical Oncology, the [facility] has carefully reviewed the data and [...] their providers when to stop screening mammograms. Tinsmith Apprentice(s): Samaria Sierra RT(R)(M), [facility]; Apurva Kelley RT(R)(M), [facility] OVERALL STUDY BIRADS: 2 Benign finding Radiology Special Procedure Tech: Nate Transcribe Date/Time: Jan 03 2023 12:19P Dictated by: ENRIKE BETTS MD This examination was interpreted and the report reviewed and electronically signed by: ENRIKE BETTS MD on Jan 03 2023 2:33PM [facility] OF [id number] NoteIMPRESSION: INCOMPLETE: NEEDS ADDITIONAL IMAGING EVALUATION The [...] made to exams dated: 07/24/2022 mammogram - [facility], 11[facility]20[facility], and [facility] [...] Health, Family Medicine, and Medical/Surgical Oncology, the [facility] has carefully reviewed the data and [...] their providers when to stop screening mammograms. Tinsmith Apprentice(s): RT Tania(R)(M), [facility]; RT Miriam(R)(M), [facility] OVERALL STUDY BIRADS: 2 Benign finding Radiology Special Procedure Tech: Nate Transcribe Date/Time: Jan 03 2023 12:19P Dictated by: ENRIKE BETTS MD This examination was interpreted and the report reviewed and electronically signed by: ENRIKE BETTS MD on Jan 03 2023 2:33PM [facility] OF [id number] History of Present illness Narrative* Apurva Kelley [...] 03, 2023 1:18 PM documented in this encounterWestern Reserve Hospital08-29-2023 History of Present illness Narrative* Sheela Celeste PA-C - 12/24/2022 9:30 AM EDT MEDICAL BREAST PATIENT NAME: Judi Krause HISTORY of PRESENT ILLNESS: Judi Krause is a 77 year old year old postmenopausal female who [facility] [place] today for follow up. 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 12/29/2019 she went on to a [...] Judi Krause's Common Hereditary Cancers Panel through [employer] was negative for a deleterious mutation. A [...] above CANCER SURVEILLANCE: Mammograms: Yes, Date in [facility]: 11/29/2021; Avni results - negative Breast MRI: Yes, Date in [facility]: 01/26/2020; results - as above Colonoscopy: Yes, Date in [facility]: 08/19/2017; results - multiple polyps; pathology reports [...] Right OPEN TREATMENT,TRIMALLEOLAR ANKLE FRACTURE Right 05/29/2018 [facility] PICC LINE INSERT/CONSULT 01/23/2021 PICC [...] Take 1 capsule by mouth once daily. chfc-avoip-jz8-vvh-umm-rhej-st (GLUCOSAMINE CHONDROITIN PLUS) [id number] mg cap Take 1 capsule by mouth [...] on for same day imaging at [facility] [place] today and therefore her imaging will be [...] location preference, she will be scheduled in [place] for first available diagnostic imaging appointment. If imaging is negative/benign, she will follow up with Raphael Perdomo 02/2023 asscheduled. She will then be seen by Wesly Sepulveda (at [facility]) in one year for her annual exam. She will call me in the interim should she have any questions or concerns. I spent a total of 35 minutes on the date of the service which included preparing to see the patient, yrih-db-ezwl patient care, completing clinical documentation, performing a medically appropriate examination, counseling and educating the patient/family/caregiver, and ordering medications, tests,or procedures. Sheela Celeste PA-C Medical Breast Specialist CC: Ruddy Cooper [address] [place] [address] documented in this encounterWestern Reserve Hospital08-29-2023 Instructions* Patient Instructions* Lisbet Landry LPN [...] TP53, CDH1, STK11, PALB2, CHEK2, BRAIN) Per [facility] High Risk Care Path recommendations, screening [...] male breast cancer you are of Ashkenazi Islam descent HEALTHY LIFESTYLE MANAGEMENT (per NCCN Guidelines [...] include but are not limited to: The [facility] Comprehensive Breast Cancer Program - my.[facility] medical [email or web address]/services/spycic-njfnyx-meigagy KoAsc[facility] - komennenhio.org Somali Cancer Society - cancer.org SONI Breast Cancer Foundations - jdbcfoundation.org FORCE - facingourrisk.org [place] - brightpink.org Young Survival Coalition - youngsurvival.org 4th Lul - 4thangel.org [address] [place] - touchedbycancer.org ([place]) The [facility] - thevictorycenter.org ([place] area) [place] - yellowbrickplace.org ([place] area) [facility] - [facility].org ([place] area) If you would like to compliment one of our caregivers you encountered today, you may do so at [email or web address]. Thank you ! documented in this encounterWestern Reserve Hospital08-29-2023 Nurse Note* Lisbet Landry LPN - 12/24/2022 9:17 AM EDT Last mammogram on: 11/29/2021 Results: See Report Is the patient active on [employer]hart Yes Electronically Signed By: Lisbet Landry LPN [...] Right OPEN TREATMENT,TRIMALLEOLAR ANKLE FRACTURE Right 05/29/2018 [facility] PICC LINE INSERT/CONSULT 01/23/2021 PICC LINE INSERT/CONSULT 01/29/2021 REMV CATARACT EXTRACAP,INSERT LENS Bilateral SHX CRANIOTOMY Left 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 Bahena Social History Tobacco Use Smoking status: Never Smokeless tobacco: Never Vaping Use Vaping Use: Never used Substance Use Topics Alcohol use: No Drug use: Never documented in this encounterWestern Reserve Hospital08-28-2023 Miscellaneous Notes* Telephone Encounter - Melani Zuniga RN - 12/23/2022 9:53 AM EDT Mychart unread. Will send letter. Melani Zuniga RN documented in this encounterWestern Reserve Hospital08-10-2023 Miscellaneous Notes* Telephone Encounter - Kay Madden RN - 12/05/2022 4:06 PM EDT Spoke with patient, she is aware of Rx. Questions answered. She will strip picker and start and will call us with [...] not have side effects. documented in this encounterWestern Reserve Hospital08-01-2023 Miscellaneous Notes* Telephone Encounter - Marylin [...] Lymph 1.00 - 4.00 k/uL 1.77 1.60 [place]% % 8.8 8.3 Abs [place] <0.87 k/uL 0.86 0.63 Eosin% % 2.0 [...] ng/mL 28.2 (L) 43.4 documented in this encounterWestern Reserve Hospital06-23-2023 History of Present illness Narrative* Bradford Love APRN.EDGE CUTTING MACHINE OPERATOR - 10/18/2022 1:20 PM EDT SUBJECTIVE: [...] Neuropathy, Without Long-Term Current Use of Insulin (Formerly [facility]) History of Cva (Cerebrovascular Accident) Dyspepsia Closed [...] from previous visits: She was admitted to [facility] neurosurgery service for recurrent left SCA aneurysm, subarachnoid hemorrhage January 22 through February 02, 2021. She was admitted to [facility] February 02 through February 27, 2021. [...] at the inpatient acute rehab unit at [facility] on February 02, 2021. On arrival she [...] appointments with Monae Dennis endovascular neurology and [facility] hematology oncology.She was also advised to follow-up with Dr. Cooper following discharge from [facility]. Seen in [facility] emergency department yesterday for abdominal discomfort and tachycardia, worsening breathing issues. CT completed of chest and abdomen negative for PE no acute process in abdomen CBC and CMPwere in acceptable range. Urinalysis negative. COVID-19 testing negative. She was discharged home with reassurance and advised close follow-up. Presents today with her son and significant other. Was at alf for about 5 days and discharge. 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 Status post partial mastectomy and Austin to left breast irradiation. 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 Surgeon: Dr. Erik Courtney Location: [facility] orthopedic [facility] Anesthesia: General Pre-op visit or labs: Outpatient. No lab work, states no anesthesia visit. CP: no SOB: no Functional capacity: stable, able to take [address] and walk a flat surface without chest pain or shortness of breath on exertion. History of heart disease/site leasing agent: no HI: no CVA: no Recent hospital admission or illness: November 2021 foot surgery She is followed by [facility] hematology oncology, last seen May 24, 2022. Has been seen by Dr. Jones neurosurgery regarding known residual aneurysm. MRA was completed 2021. He recommended an MRA in 1 year. Presents today with concern regarding lisinopril as possible because of prior kidney stone. No current flank or back pain. She was seen by Dr. Maki at [facility] August 2021 for hydronephrosis with renal [...] Take 1 capsule by mouth once daily. [id number]-[id number]-oi0-kma-cji-rkiq-st (GLUCOSAMINE CHONDROITIN PLUS) [id number] mg cap Take 1 capsule by mouth [...] following reasons: The patient has a prior HI or stroke diagnosis Component Latest Ref Rng [...] Abs Lymph 1.00 - 4.00 k/uL 1.77 [place]% % 8.8 Abs [place] <0.87 k/uL 0.86 Eosin% % 2.0 Abs [...] Cooper MD with labs prior Bradford Love APRN.EDGE CUTTING MACHINE OPERATOR Medical Decision Making: Problems: Low: Stable chronic illness Risk: Moderate: Drug management Medical Decision Making Level: 3 - Low documented in this encounterWestern Reserve Hospital06-22-2023 Miscellaneous Notes* Telephone Encounter - Paty [...] EDT Looks like [facility] to see [...] Patient uses [facility] documented in this encounterWestern Reserve Hospital06-16-2023 Miscellaneous Notes* Telephone Encounter - Maryam [...] a new med. And wants sent to [facility] pharmacy. Sarah Samuel LPN * Telephone Encounter [...] to resume this medication. documented in this encounterWestern Reserve Hospital05-10-2023 Miscellaneous Notes* Telephone Encounter - Nicole [...] Thank you. Denisse Murray documented in this encounterWestern Reserve Hospital05-03-2023 Miscellaneous Notes* Telephone Encounter - Jhoana [...] Thank you. Denisse Murray documented in this encounterWestern Reserve Hospital04-11-2023 Miscellaneous Notes* Telephone Encounter - Angélica Parkinson RN - 08/06/2022 11:54 AM EDT Last Office Visit: 06/27/2022 Future Office Visit: 11/22/2022 Requested Prescriptions Pending Prescriptions Disp Refills lisinopril (ZESTRIL) 10 mg tablet 90 tablet 3 Sig: Take 1 tablet by mouth once daily. Date of Last Labs: 03/28/2022 documented in this encounterWestern Reserve Hospital03-29-2023 Miscellaneous Notes* Letter - Mammography Coordinator - 07/24/2022 11:39 AM EDT July 25, 2022 PID: [id number] Judi Krause [address] [place] [address] Dear Ms. Krause, We are pleased to [...] report will be [facility] as part of your permanent medical record and are available for your continuing care. Thank you for allowing us to help in meeting your health care needs. Sincerely, Dr. Godinez Interpreting Radiologist [facility] (Normal-Clinical Evaluation) documented in this encounterWestern Reserve Hospital03-29-2023 History of Present illness Narrative* Paola [...] 24, 2022 11:14 AM documented in this encounterWestern Reserve Hospital03-02-2023 History of Present illness Narrative* Bradford Love APRN.EDGE CUTTING MACHINE OPERATOR - 06/27/2022 11:39 AM EST SUBJECTIVE: [...] from previous visits: She was admitted to [facility] neurosurgery service for recurrent left SCA aneurysm, subarachnoid hemorrhage January 22 through February 02, 2021. She was admitted to [facility] February 02 through February 27, 2021. [...] at the inpatient acute rehab unit at [facility] on February 02, 2021. On arrival she [...] follow-up with Dr. Cooper following discharge from [facility]. Seen in [facility] emergency department yesterday for abdominal discomfort and tachycardia, worsening breathing issues. CT completed of chest and abdomen negative for PE no acute process in abdomen CBC and CMPwere in acceptable range. Urinalysis negative. COVID-19 testing negative. She was discharged home with reassurance and advised close follow-up. Presents today with her son and significant other. Was at alf for about 5 days and discharge. 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 Status post partial mastectomy and Austin to left breast irradiation. 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 Surgeon: Dr. Erik Courtney Location: [facility] orthopedic [facility] Anesthesia: General Pre-op visit or labs: Outpatient. No lab work, states no anesthesia visit. CP: no SOB: no Functional capacity: stable, able to take [address] and walk a flat surface without chest pain or shortness of breath on exertion. History of heart disease/site leasing agent: no HI: no CVA: no Recent hospital admission or illness: November 2021 foot surgery She is followed by [facility] hematology oncology, last seen May 24, 2022. [...] Take 1 capsule by mouth once daily. qclo-[id number]-vh4-ioi-wbs-qbhv-st (GLUCOSAMINE CHONDROITIN PLUS) [id number] mg cap Take 1 capsule by mouth [...] following reasons: The patient has a prior HI or stroke diagnosis Component Latest Ref Rng [...] Abs Lymph 1.00 - 4.00 k/uL 1.77 [place]% % 8.8 Abs [place] <0.87 k/uL 0.86 Eosin% % 2.0 Abs [...] Level: 4 - Moderate documented in this encounterWestern Reserve Hospital01-27-2023 History of Present illness Narrative* Raphael Perdomo APRN.FRENCH TRANSLATOR - 05/24/2022 12:54 PM EST Chief Complaint [...] strongly ER+ in 99% of cells, strongly AR+ in 99% of cells, and HER2-negative (0 by IHC). Stereotactic biopsy of the right breast with clip placement performed 12/29/19 showed rare atypical intraductal epithelial cells. She was taking estrogen as Estrace. (Stopped November 2019). On 01/28/20 Ms. Kraues underwent excision of the right breast lesion [...] re- excision. It's ER positive (99%, strong), AR positive (99%, strong) and Her2/maria a 0. [...] visit. Raphael Perdomo APRN.DESIRAE documented in this encounterWestern Reserve Hospital12-29-2022 Miscellaneous Notes* Telephone Encounter - Birgit [...] Please let patient know. documented in this encounterWestern Reserve Hospital12-05-2022 Miscellaneous Notes* Telephone Encounter - Loni Ding Pss - 04/01/2022 11:07 AM EST Spoke with patient and rescheduled date per her request. * Telephone Encounter - Raphael Perdomo APRN.CNP - 04/01/2022 9:51 AM EST Please move it out once she has recovered. Thank you. Raphael Perdomo APRN.FRENCH TRANSLATOR * Telephone Encounter - Loni Ding Pss [...] Please advise the patient. documented in this encounterWestern Reserve Hospital12-01-2022 Instructions* Patient Instructions* Bradford Love APRN.EDGE CUTTING MACHINE OPERATOR - 03/28/2022 2:36 PM EST Check preop lab work today. Follow your surgeons instructions regarding surgery. Increase nortriptyline from 25 mg to 50 mg daily Take two 25 mg daily at bedtime until gone Then take one 50 mg tablet at bedtime documented in this encounterWestern Reserve Hospital12-01-2022 History of Present illness Narrative* Bradford [...] Neuropathy, Without Long-Term Current Use of Insulin ([facility]ly [facility]) History of Cva (Cerebrovascular Accident) Dyspepsia Closed [...] from previous visit: She was admitted to [facility] neurosurgery service for recurrent left SCA aneurysm, subarachnoid hemorrhage January 22 through February 02, 2021. She was admitted to [facility] February 02 through February 27, 2021. [...] at the inpatient acute rehab unit at [facility] on February 02, 2021. On arrival she [...] with Monae Dennis endovascular neurology and [facility] hematology oncology.She was also advised to follow-up with Dr. Cooper following discharge from [facility]. Seen in [facility] emergency department yesterday for abdominal discomfort and tachycardia, worsening breathing issues. CT completed of chest and abdomen negative for PE no acute process in abdomen CBC and CMPwere in acceptable range. Urinalysis negative. COVID-19 testing negative. She was discharged home with reassurance and advised close follow-up. Presents today with her son and significant other. Was at alf for about 5 days and discharge. 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 Status post partial mastectomy and Austin to left breast irradiation. 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 Surgeon: Dr. Erik Courtney Location[facility] Anesthesia: General Pre-op visit or labs: Outpatient. No lab work, states no anesthesia visit. CP: no SOB: no Functional capacity: stable, able to take [address] and walk a flat surface without chest pain or shortness of breath on exertion. History of heart disease/site leasing agent: no HI: no CVA: no Recent hospital admission or [...] A & D ORAL) Take by mouth. fhge-gqktz-dk5-ejh-lsg-ohho-st (GLUCOSAMINE CHONDROITIN PLUS) [id number] mg cap Take 1 capsule by mouth [...] bedtime 3 mo follow up Bradford Love APRN.EDGE CUTTING MACHINE OPERATOR 6 mo follow up MD Bradford Quiroz APRN.EDGE CUTTING MACHINE OPERATOR Medical Decision Making: Problems: Moderate: 2+ stable chronic illnesses Data: Unique test(s) ordered: 3+ Risk: Moderate: Drug management and Decision on elective major surgery w/o risk factors Medical Decision Making Level: 4 - Moderate documented in this encounterWestern Reserve Hospital10-24-2022 History of Present illness Narrative* Julianne [...] 24gauge. RADIOLOGY DEPARTMENT: MR; Exam(s) Completed: Head: [place] [employer] [place] MRA SIGNATURE: RT Bridget(Huy) PATIENT NAME: Judi Krause DATE: February 18, 2022 TIME: 12:21 PM documented in this encounterWestern Reserve Hospital09-19-2022 Miscellaneous Notes* Telephone Encounter - Monae Muhammad RN - 01/14/2022 1:00 PM EDT [facility] informed me that they had not received everything. In fact, they have nothing. I have printed the last few years plus the imaging reports for the past 10 years. I am going to fax them to [facility]. [phone] * Telephone Encounter - Monae Muhammad RN - 01/14/2022 10:42 AM EDT Spoke with patient who has concerns about getting imaging and reports from us to [facility]. She is going there for a 2nd opinion. I called [facility], Dr. Courtney, to see if they had received everything. However, I had to leave a voicemail. I told them to follow up with me if they did not receive. documented in this encounterWestern Reserve Hospital09-12-2022 Miscellaneous Notes* Telephone Encounter - Abiola Deleon - 01/07/2022 8:41 AM EDT Patient called and asked if she had radiation for breast cancer could she still have inplants put in? She would like a call back to further discuss. documented in this encounterWestern Reserve Hospital08-25-2022 History of Present illness Narrative* Julianne [...] and treatment included: Therapeutic exercise, Neuromuscular re-education, Self-snf management, and Patient/Family/Car egiver Education. Goals for Episode of Care: created on 10/31/21 through 01/09/22 updated 12/19/21 Improve right LE alignment for gait pattern / partially achieved [place] in home exercise program.. achieved Patient will [...] 41 Julianne Saab PT documented in this encounterWestern Reserve Hospital08-22-2022 History of Present illness Narrative* Julianne [...] 40 Julianne Saab PT documented in this encounterWestern Reserve Hospital08-19-2022 Miscellaneous Notes* Telephone Encounter - Melani [...] her to get Angio. Thank you calling [facility] [place]. You will receive a return call within 48hours ( or 2 business days if close to the weekend). If you feel that this is an urgent issue and needs immediate attention, it is recommended that you contact your primary care provider office or proceed to your nearest Urgent Care Center of Emergency Room ED for evaluation/treatment. documented in this encounterWestern Reserve Hospital08-18-2022 Miscellaneous Notes* Telephone Encounter - Melani Zuniga RN - 12/13/2021 1:52 PM EDT Faxed. Melani Zuniga RN * Telephone Encounter - Melani Zuniga RN - 12/05/2021 3:39 PM EDT Forwarded to Dr. Jones for signature. Melani Zuniga RN documented in this encounterWestern Reserve Hospital08-17-2022 History of Present illness Narrative* Julianne [...] 38 Julianne Saab PT documented in this encounterWestern Reserve Hospital08-15-2022 History of Present illness Narrative* Julianne [...] 35 Julianne Saab PT documented in this encounterWestern Reserve Hospital08-10-2022 History of Present illness Narrative* Charleen [...] 35 ARA Frazier, PT documented in this encounterWestern Reserve Hospital08-09-2022 Miscellaneous Notes* Telephone Encounter - Jake [...] advise. Christa Elizabeth Pss documented in this encounterWestern Reserve Hospital08-08-2022 Miscellaneous Notes* Telephone Encounter - Monae Mccormack RN - 12/03/2021 2:22 PM EDT Images from the original note were not included. Patient Angiogram Instructions Diagnostic Angiogram Instructions for your procedure on 01/25/22 Prior to Procedure Complete Labs as ordered-- may do at local facility - If labs not completed at a [facility] Facility please fax to: [phone] - You do not need to fast before your labs Set-up a reliable driver guard to bring you and take you home after your procedure. Day Before Procedure If you have not received a phone call with your arrival time by the day before your procedure, please call [phone]. Night Before procedure No eating any solid [...] OF PROCEDURE Procedure will be completed at [address] Angiogram Details What is an angiogram? [...] office. Nights and weekends, you can call [phone] or and ask for the neurosurgery resident correctional officer captain for more urgent questions. If you have [...] Sincerely, Your Cerebrovascular Team documented in this encounterWestern Reserve Hospital08-08-2022 History of Present illness Narrative* Monae Mccormack RN - 12/03/2021 1:34 PM EDT Schedule 1 yr f/u cerebral angiogram w/Dr Zaragoza or covering physician -- see orders and surgical request. documented in this encounterWestern Reserve Hospital08-08-2022 History of Present illness Narrative* Charleen [...] 40 ARA Frazier PT documented in this encounterWestern Reserve Hospital08-04-2022 Miscellaneous Notes* Letter - Mammography Coordinator - 11/29/2021 4:34 PM EDT November 29, 2021 PID: [id number] Judi Krause [address] [place] [address] Dear Ms. Krause, We are pleased to [...] report will be [facility] as part of your permanent medical record and are available for your continuing care. Thank you for allowing us to help in meeting your health care needs. Sincerely, Dr. Parker Interpreting Radiologist [facility] (Normal over 40) documented in this encounterWestern Reserve Hospital08-04-2022 History of Present illness Narrative* Mindi [...] 29, 2021 10:59 AM documented in this encounterWestern Reserve Hospital08-04-2022 Instructions* Patient Instructions* Monae Muhammad RN [...] breast cancer, and a history of Ashkenazi Islam ancestry. Breast pain is very common and usually is not a sign of cancer, but should be evaluated by a breastspecialist. For comfort, simply reducing caffeine (coffee, tea, chocolate, energy drinks, sodas) inyour diet can provide relief. A properly fitted bra can also be helpful in reducing breast pain. Ifthose two measures do not provide relief, taking Evening [place] Oil 1000mg capsules twice a day for [...] [email or web address]. Thank you ! documented in this encounterWestern Reserve Hospital08-04-2022 Nurse Note* Monae Muhammad RN - [...] Right OPEN TREATMENT,TRIMALLEOLAR ANKLE FRACTURE Right 05/29/2018 [facility] PICC LINE INSERT/CONSULT 01/23/2021 PICC LINE INSERT/CONSULT 01/29/2021 REMV CATARACT EXTRACAP,INSERT LENS Bilateral SHX CRANIOTOMY Left 2005 aneurysm TOTAL KNEE REPLACEMENT Right 07/2020 VEIN SURGERY (SPECIFY LOCATION) HX 2009 Dr. Bahena Social History Tobacco Use Smoking status: Never Smoker Smokeless tobacco: Never Used Vaping Use Vaping Use: Never used Substance Use Topics Alcohol use: No Drug use: Never documented in this encounterWestern Reserve Hospital08-04-2022 History of Present illness Narrative* Sheela Celeste PA-C - 11/29/2021 9:00 AM EDT MEDICAL BREAST PATIENT NAME: Judi Krause REFERRAL: She is referred by Dr. Tasha Lim for an opinion regarding survivorship care. My final recommendations will be communicated back to the requesting physician by the way of the shared medical record, fax, or via US Mail. HISTORY of PRESENT ILLNESS: Judi Krause is a 76 year old year old postmenopausal female who [facility] [place] today to establish care. 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 12/29/2019 she went on to a [...] Judi Krause's Common Hereditary Cancers Panel through [employer] was negative for a deleterious mutation. A [...] above CANCER SURVEILLANCE: Mammograms: Yes, Date in [facility]: 11/28/2020; results - negative Breast MRI: Yes, Date in Epic: 01/26/2020; results - as above Colonoscopy: Yes, Date in [facility]: 08/19/2017; results - multiple polyps; pathology reports [...] Right OPEN TREATMENT,TRIMALLEOLAR ANKLE FRACTURE Right 05/29/2018 [facility] PICC LINE INSERT/CONSULT 01/23/2021 PICC [...] Take 1 tablet by mouth once daily. [id number]-[id number]-xpi-wrg-dkwg-st (GLUCOSAMINE CHONDROITIN PLUS) [id number] mg cap Take 1 capsule by mouth [...] which included preparing to see the patient, [id number] patient care, completing clinical documentation, performing a medically appropriate examination, counseling and educating the patient/family/caregiver and ordering medications,tests, or procedures. Sheela Celeste PA-C Medical Breast Specialist CC: Tasha Schaeffer [address] [facility] [id number] [address] [place] [address] documented in this encounterWestern Reserve Hospital08-03-2022 History of Present illness Narrative* Julianne [...] 35 Julianne Saab PT documented in this encounterWestern Reserve Hospital08-01-2022 History of Present illness Narrative* Julianne [...] 31 Julianne Saab PT documented in this encounterWestern Reserve Hospital07-28-2022 History of Present illness Narrative* Julianne [...] encouraged to get appt with neurology with [facility] as she wants to stay in this [...] is willing to see neurologist with the [facility] Pain: OBJECTIVE MEASURES WITH LEVEL OF [...] 30 Julianne Saab PT documented in this encounterWestern Reserve Hospital07-27-2022 History of Present illness Narrative* Raphael Perdomo APRN.FRENCH TRANSLATOR - 11/21/2021 1:21 PM EDT Chief Complaint [...] strongly ER+ in 99% of cells, strongly AR+ in 99% of cells, and HER2-negative (0 [...] re- excision. It's ER positive (99%, strong), AR positive (99%, strong) and Her2/maria a 0. [...] visit. Raphael Perdomo APRN.CNP documented in this encounterWestern Reserve Hospital07-26-2022 History of Present illness Narrative* Julianne [...] 30 Julianne Saab PT documented in this encounterWestern Reserve Hospital07-21-2022 History of Present illness Narrative* Julianne [...] 30 Julianne Saab PT documented in this encounterWestern Reserve Hospital07-19-2022 History of Present illness Narrative* Julianne [...] 40 Julianne Saab PT documented in this encounterWestern Reserve Hospital07-06-2022 History of Present illness Narrative* Julianne [...] Improve right LE alignment for gait pattern [place] in home exercise program. Patient will increase [...] Planned: 12 Planned Treatment Interventions: Therapeutic exercise (88893);Neuromuscular re- education (20060);Self-snf management (02976);Patient/Family/Caregiver Education;Gait Training (65967);Therapeuticactivities (74443);Manual therapy (76982) PLAN FOR NEXT VISIT: Will add ankle [...] aneurysm (has neuropathy) Relevant History Preferred Language: Fijian Employment: Retired Recreation / Current Exercise: none [...] 45 Julianne Saab PT documented in this encounterWestern Reserve Hospital07-06-2022 History of Past illness Narrative* Problem [...] of this encounter (statuses as of 12/20/2021) [facility] of Past illness Narrative* Problem [...] of this encounter (statuses as of 12/22/2021) [facility] of Past illness Narrative* Problem [...] of this encounter (statuses as of 01/07/2022) [facility] of Past illness Narrative* Problem [...] of this encounter (statuses as of 01/14/2022) [facility] of Past illness Narrative* Problem [...] of this encounter (statuses as of 03/01/2022) [facility] of Past illness Narrative* Problem [...] of this encounter (statuses as of 03/03/2022) [facility] of Past illness Narrative* Problem [...] of this encounter (statuses as of 03/28/2022) [facility] [facility] Narrative* Problem [...] of this encounter (statuses as of 04/01/2022) [facility] Narrative* Problem [...] of this encounter (statuses as of 04/19/2022) [facility] Narrative* Problem [...] of this encounter (statuses as of 05/01/2022) [facility] Narrative* Problem [...] of this encounter (statuses as of 05/24/2022) [facility] N[facility]ative* Problem [...] of this encounter (statuses as of 06/28/2022) [facility]* Problem [...] of this encounter (statuses as of 07/26/2022) [facility] N[facility]* Problem [...] of this encounter (statuses as of 08/06/2022) [facility] N[facility]* Problem [...] of this encounter (statuses as of 08/28/2022) [facility] N[facility]ative* Problem [...] of this encounter (statuses as of 09/05/2022) [facility]* Problem [...] of this encounter (statuses as of 10/11/2022) [facility]* Problem [...] of this encounter (statuses as of 10/17/2022) [facility] N[facility]ative* Problem [...] of this encounter (statuses as of 10/18/2022) [facility] N[facility]ative* Problem [...] of this encounter (statuses as of 11/26/2022) [facility] N[facility]* Problem [...] of this encounter (statuses as of 12/06/2022) [facility] N[facility]* Problem [...] of this encounter (statuses as of 12/23/2022) [facility] N[facility]ative* Problem [...] of this encounter (statuses as of 12/23/2022) [facility] N[facility]* Problem [...] of this encounter (statuses as of 12/24/2022) [facility] N[facility]* Problem [...] of this encounter (statuses as of 12/25/2022) [facility] N[facility]* Problem [...] of this encounter (statuses as of 02/26/2023) [facility]* Problem [...] of this encounter (statuses as of 03/02/2023) [facility]* Problem [...] of this encounter (statuses as of 03/02/2023) [facility]* Problem [...] of this encounter (statuses as of 03/04/2023) [facility]* Problem [...] of this encounter (statuses as of 03/11/2023) [facility]* Problem [...] of this encounter (statuses as of 04/04/2023) [facility] N[facility]* Problem [...] of this encounter (statuses as of 06/13/2023) [facility] N[facility]* Problem [...] of this encounter (statuses as of 06/13/2023) [facility] Narrative* Ruddy Cooper MD - 10/17/2021 9:00 AM EDT This note was created using [employer]. Subjective Judi Krause is a 76 year old female. Patient presents with: F/U 6 months SUBJECTIVE: Judi Krause is a 76 year old year old lady here today for 6 month follow up appointment for review of medical conditions. Going to [facility] for her right ankle after issues with failed hardware (broken screws). [place] need left foot addressed for problems after surgery for hammertoe. Will see for first appointment next Friday. Decided to go to [facility] for breast cancer treatment. Discussed bad experience had with breast biopsy in [place]. Noted severe dry heaving when had the [...] Take 1 tablet by mouth once daily. [id number]-[id number]-dby-qxy-urnt-st (GLUCOSAMINE CHONDROITIN PLUS) [id number] mg cap Take 1 capsule by mouth [...] Abs Lymph 1.00 - 4.00 k/uL 1.41 [place]% % 9.4 Abs [place] <0.87 k/uL 0.68 Eosin% % 2.1 Abs [...] PANEL - CBC 6. Breast cancer--following at [facility], Ruddy Cooper MD [facility] of Present illness Narrative* Ruiz Serrato APRN.FRENCH TRANSLATOR - 10/08/2021 12:11 PM EDT Images from [...] after initial surgery. Surgery was performed at [facility]. Presents today due to concerns thather [...] Right OPEN TREATMENT,TRIMALLEOLAR ANKLE FRACTURE Right 05/29/2018 [facility] PICC LINE INSERT/CONSULT 01/23/2021 PICC [...] Take 1 tablet by mouth once daily. [id number]-[id number]-yql-ixbh-st (GLUCOSAMINE CHONDROITIN PLUS) [id number] mg cap Take 1 capsule by mouth [...] initial surgery. Patient will be scheduled with [facility] foot [facility] ankle. Appointment scheduled. We will follow-up with orthopedic doctor as scheduled. Follow-up with PCP did discuss ongoing neuropathy. Red flags for prompt reevaluation discussed. Supportive therapies discussed. Patient verbalized understanding agrees with plan of care. Ruiz Serrato APRN.DESIRAE [facility] Miscellaneous Notes* Telephone Encounter - Carolina [...] you. Carolina Don LPN documented in [facility] NoteHNO ID: [id number] Author: RT Estephania(R) Service: Radiology Author Type: [...] BY: RT Estephania(R) August 07, 2021 1:09 PMLakehealth Tripoint Medical [id number] History of Present illness Narrative* RT Estephania(R) [...] 07, 2021 1:09 PM documented in [facility] Miscellaneous Notes* Telephone Encounter - Jocelyn Zhou - 08/06/2021 1:17 PM EDT Left VM to leave early due to construction on [address] [facility] NoteHNO ID: [id number] Author: RT Andrea(Huy) Service: Radiology Author Type: [...] Krause DATE: July 03, 2021 TIME: 10:45 AMLakehealth Tripoint Medical [id number] History of Past illness Narrative* Problem Noted [...] of this encounter (statuses as of 10/23/2021) [facility] Narrative* Problem [...] of this encounter (statuses as of 10/31/2021) [facility] Narrative* Problem [...] of this encounter (statuses as of 11/13/2021) [facility] Narrative* Problem [...] of this encounter (statuses as of 11/15/2021) [facility] Narrative* Problem [...] of this encounter (statuses as of 11/20/2021) [facility] Narrative* Problem [...] of this encounter (statuses as of 11/22/2021) [facility] Narrative* Problem [...] of this encounter (statuses as of 11/23/2021) [facility] Narrative* Problem [...] of this encounter (statuses as of 11/26/2021) [facility] Narrative* Problem [...] of this encounter (statuses as of 11/28/2021) [facility] Narrative* Problem [...] of this encounter (statuses as of 11/29/2021) [facility] Narrative* Problem [...] of this encounter (statuses as of 11/30/2021) [facility] Narrative* Problem [...] of this encounter (statuses as of 12/01/2021) [facility] Narrative* Problem [...] of this encounter (statuses as of 12/03/2021) [facility] Narrative* Problem [...] of this encounter (statuses as of 12/03/2021) [facility] Narrative* Problem [...] of this encounter (statuses as of 12/03/2021) [facility] Narrative* Problem [...] of this encounter (statuses as of 12/05/2021) [facility] Narrative* Problem [...] of this encounter (statuses as of 12/10/2021) [facility] Narrative* Problem [...] of this encounter (statuses as of 12/12/2021) [facility] Narrative* Problem [...] of this encounter (statuses as of 12/13/2021) [facility] Narrative* Problem [...] of this encounter (statuses as of 12/14/2021) [facility] Narrative* Problem [...] of this encounter (statuses as of 12/17/2021) [facility] N[facility]ative* Problem [...] of this encounter (statuses as of 08/06/2021) [facility] Narrative* Problem [...] of this encounter (statuses as of 08/08/2021) [facility] Narrative* Problem [...] of this encounter (statuses as of 09/06/2021) [facility] Narrative* Problem [...] of this encounter (statuses as of 10/08/2021) [facility] of Present [facility] Narrative* Denisse [...] 25, 2020 1:03 PM documented in this encounterWestern [facility]05-[facility]21 NoteHNO ID: [id number] Author: RT Frieda(Huy) Service: ? Author Type: Working Supervisor Type: Progress Notes Filed: 09/05/2020 12:14 PM [...] BY: RT Frieda(R) September 05, 2020 12:12 PMLakehealth Tripoint Medical [id number] NoteHNO ID: [id number] Author: Mindi Pereira (Rt) Service: Radiology Author Type: Working Supervisor Type: Progress Notes Filed: 08/01/2020 3:12 PM [...] Yes RADIOLOGY DEPARTMENT: MR; Exam(s) Completed: Head: [place] MRA PERIPHERAL IV DATA: Not applicable SIGNED BY: RT ISRRAEL August 01, 2020 3:12 [facility]01-09-2021 History of Present illness Narrative* Roslyn [...] 06, 2020 11:13 AM documented in this encounterWestern [facility] HospitalEvaluation note* Diagnosis Right knee pain, unspecified chronicity [facility]* Diagnosis Onset Date Resolution Status Bacteria in urine acute Creatinine elevation acute Hydronephrosis with urinary obstruction due to ureteral calculus acute [facility] Work Phone: Evaluation note* Diagnosis Acute right ankle pain- Primary [facility]* Diagnosis Osteoporosis, unspecified- Primary [facility]*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 [facility]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 [facility]*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 [facility]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 [facility]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 [facility]* Diagnosis Invasive ductal carcinoma of breast, 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 [facility] Diagnosis Bilateral fibrocystic breast changes- Primary Personal history of breast cancer Personal history of malignant neoplasm of breast S/P bilateral breast lumpectomy Other postprocedural status Use of anastrozole Use of aromatase inhibitors Encounter for screening mammogram for malignant neoplasm of breast Other screening mammogram [facility] Diagnosis Encounter for screening mammogram for breast cancer Bilateral fibrocystic breast changes Personal history of breast cancer Personal history of malignant neoplasm of breast S/P bilateral breast lumpectomy Other postprocedural status Encounter for screening mammogram for malignant neoplasm of breast Other screening mammogram [facility]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 [facility] Diagnosis Cerebral aneurysm- Primary Cerebral aneurysm, nonruptured [facility]*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 [facility]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 [facility]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 Cerebral aneurysm Cerebral aneurysm, nonruptured [facility]* Diagnosis Vitamin D deficiency- Primary Unspecified vitamin D deficiency Type 2 diabetes mellitus with diabetic neuropathy, without long-term current use of insulin (HCC) Generalized anxiety disorder Mixed hyperlipidemia [facility]*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 [facility]*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 [facility]* Diagnosis Insomnia, unspecified type- Primary Anxiety Anxiety state, unspecified Vitamin D deficiency Unspecified vitamin D deficiency Type 2 diabetes mellitus with diabetic neuropathy, without long-term current use of insulin ([facility]) Encounter for long-term current use of medication Malignant neoplasm of nipple of left breast in female, unspecified estrogen receptor status ([facility]) [facility]* Diagnosis Intracranial aneurysm- Primary Cerebral aneurysm, nonruptured Nonruptured cerebral aneurysm Cerebral aneurysm, nonruptured [facility]* Diagnosis Preop exam for internal medicine- Primary Other specified pre-operative examination Type 2 diabetes mellitus with diabetic neuropathy, without long-term current use of insulin ([facility]) Need for shingles vaccine Need for prophylactic vaccination and inoculation against other viral diseases Encounter for immunization Need for other specified prophylactic vaccination against single bacterial disease Screening for diabetic retinopathy Screening for other eye conditions Vitamin D deficiency Unspecified vitamin D deficiency [facility]* Diagnosis Osteoporosis, unspecified- Primary [facility]* Diagnosis Invasive ductal carcinoma of breast, 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 [facility]* Diagnosis Type 2 diabetes mellitus with diabetic neuropathy, without long-term current use of insulin (HCC)- Primary Vitamin D deficiency Unspecified vitamin D deficiency Insomnia, unspecified type [facility]* Diagnosis Primary hypertension- Primary Unspecified [...] Breast screening, unspecified [facility] Diagnosis Bilateral fibrocystic breast changes- [...] Cerebral aneurysm, nonruptured [facility]* Diagnosis Intracranial aneurysm Cerebral aneurysm, nonruptured [facility]* Diagnosis Invasive ductal carcinoma of breast, 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 [facility]* Diagnosis Peripheral arterial disease (HCC)- Primary Peripheral vascular disease, unspecified Primary hypertension Unspecified essential hypertension Type 2 diabetes mellitus with diabetic neuropathy, without long-term current use of insulin (HCC) Tinnitus of both ears Unspecified tinnitus Vitamin D deficiency Unspecified vitamin D deficiency Mixed hyperlipidemia Muscle cramping Cramp of limb [facility]* Diagnosis Screening for diabetic retinopathy- [...] Osteoporosis, unspecified- Primary [facility]* Diagnosis History of abdominal surgery Other postprocedural status Abdominal pain, chronic, generalized Abdominal pain, generalized [facility]* Diagnosis Gait difficulty- Primary Abnormality of gait Complaints of leg weakness Other musculoskeletal symptoms referable to limbs [facility]* Diagnosis Patient left without being seen- Primary Surgical or other procedure not carried out because of patient's decision [facility] Diagnosis Acute left ankle pain- Primary Foot pain, left Pain in limb Acute left ankle pain Foot pain, left Pain in limb [facility]* Diagnosis Complaints of leg weakness- Primary Other musculoskeletal symptoms referable to limbs Gait difficulty Abnormality of gait [facility]* Diagnosis Complaints of leg weakness- Primary Other musculoskeletal symptoms referable to limbs Gait difficulty Abnormality of gait [facility]* Diagnosis Complaints of leg weakness- Primary Other musculoskeletal symptoms referable to limbs Gait difficulty Abnormality of gait [facility] Diagnosis Complaints of leg weakness- Primary Other musculoskeletal symptoms referable to limbs Gait difficulty Abnormality of gait [facility] Diagnosis Complaints of leg weakness- Primary Other musculoskeletal symptoms referable to limbs Gait difficulty Abnormality of gait [facility] Diagnosis Complaints of leg weakness- Primary Other musculoskeletal symptoms referable to limbs Gait difficulty Abnormality of gait [facility] Diagnosis Complaints of leg weakness- Primary Other musculoskeletal symptoms referable to limbs Gait difficulty Abnormality of gait [facility] Diagnosis Complaints of leg weakness- Primary Other musculoskeletal symptoms referable to limbs Gait difficulty Abnormality of gait [facility] Diagnosis Complaints of leg weakness- Primary Other musculoskeletal symptoms referable to limbs Gait difficulty Abnormality of gait [facility]* Diagnosis Generalized abdominal pain- Primary Abdominal pain, generalized History of abdominal surgery Other postprocedural status [facility]* Diagnosis Complaints of leg weakness- Primary Other musculoskeletal symptoms referable to limbs Gait difficulty Abnormality of gait [facility]* Diagnosis Type 2 diabetes mellitus with diabetic neuropathy, without long-term current use of insulin (HCC) 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) [facility]* Diagnosis Invasive ductal carcinoma of breast, left (HCC) [facility]* Diagnosis Complaints of leg weakness- Primary Other musculoskeletal symptoms referable to limbs Gait difficulty Abnormality of gait [facility] Diagnosis Pre-operative examination- Primary Preoperative examination, [...] Prediabetes Other abnormal glucose SAH (subarachnoid hemorrhage) ([facility])- Primary Subarachnoid hemorrhage Dysphagia, oropharyngeal Dysphagia, oropharyngeal [...] Abnormality of gait [facility] Diagnosis Pre-operative examination- Primary Preoperative [...] Prediabetes Other abnormal glucose SAH (subarachnoid hemorrhage) ([facility])- Primary Subarachnoid hemorrhage Dysphagia, oropharyngeal Dysphagia, oropharyngeal [...] neuropathy, without long-term current use of insulin ([facility]) Screening for diabetic retinopathy Screening for other eye conditions Encounter for immunization Need for other specified prophylactic vaccination against single bacterial disease Tinnitus of both ears Unspecified tinnitus 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) Complaints of leg weakness Other musculoskeletal symptoms referable to limbs [facility] Diagnosis Pre-operative examination- Primary Preoperative [...] Prediabetes Other abnormal glucose SAH (subarachnoid hemorrhage) ([facility])- Primary Subarachnoid hemorrhage Dysphagia, oropharyngeal Dysphagia, oropharyngeal [...] Abnormality of gait documented in this encounter [facility] note* Diagnosis Pre-operative examination- Primary Preoperative examination, [...] Prediabetes Other abnormal glucose SAH (subarachnoid hemorrhage) ([facility])- Primary Subarachnoid hemorrhage Dysphagia, oropharyngeal Dysphagia, oropharyngeal [...] breast cancer- Primary documented in this encounter [facility] note* Diagnosis Pre-operative examination- Primary Preoperative examination, [...] Prediabetes Other abnormal glucose SAH (subarachnoid hemorrhage) ([facility])- Primary Subarachnoid hemorrhage Dysphagia, oropharyngeal Dysphagia, oropharyngeal [...] Pain in limb [facility]* Diagnosis Pre-operative examination- Primary Preoperative [...] Abnormality of gait [facility] Diagnosis Pre-operative examination- Primary Preoperative [...] Prediabetes Other abnormal glucose SAH (subarachnoid hemorrhage) ([facility])- Primary Subarachnoid hemorrhage Dysphagia, oropharyngeal Dysphagia, oropharyngeal [...] for breast cancer [facility] Diagnosis Pre-operative examination- Primary Preoperative [...] Prediabetes Other abnormal glucose SAH (subarachnoid hemorrhage) ([facility])- Primary Subarachnoid hemorrhage Dysphagia, oropharyngeal Dysphagia, oropharyngeal [...] Abnormality of gait [facility] Diagnosis Pre-operative examination- Primary Preoperative [...] Prediabetes Other abnormal glucose SAH (subarachnoid hemorrhage) ([facility])- Primary Subarachnoid hemorrhage Dysphagia, oropharyngeal Dysphagia, oropharyngeal phase Generalized anxiety disorder Respiratory insufficiency Other dyspnea and respiratory abnormality Infiltrating ductal carcinoma of left breast ([facility]) Leukocytosis Leukocytosis, unspecified Elevated lactic acid level [...] of right breast [facility] Diagnosis Pre-operative examination- Primary Preoperative [...] Abnormality of gait [facility] Pre-operative examination- Primary Preoperative [...] (HCC)- Primary Subarachnoid hemorrhage SAH (subarachnoid hemorrhage) ([facility]) Subarachnoid hemorrhage Dysphagia, oropharyngeal Dysphagia, oropharyngeal phase [...] right ankle pain documented in this encounter [facility] note* Diagnosis Pre-operative examination- Primary Preoperative examination, [...] of patient's decision [facility] Diagnosis Pre-operative examination- Primary Preoperative [...] Generalized anxiety disorder [facility] Diagnosis Pre-operative examination- Primary Preoperative [...] Generalized anxiety disorder [facility] Diagnosis Pre-operative examination- Primary Preoperative [...] left breast (HCC) [facility] Diagnosis Pre-operative examination- Primary Preoperative [...] of right breast [facility] Diagnosis Pre-operative examination- Primary Preoperative [...] Prediabetes Other abnormal glucose SAH (subarachnoid hemorrhage) ([facility])- Primary Subarachnoid hemorrhage Dysphagia, oropharyngeal Dysphagia, oropharyngeal [...] use of medication [facility] Pre-operative examination- Primary Preoperative [...] Prediabetes Other abnormal glucose SAH (subarachnoid hemorrhage) ([facility])- Primary Subarachnoid hemorrhage Dysphagia, oropharyngeal Dysphagia, oropharyngeal [...] Unspecified arthropathy, hand documented in this encounter [facility] note* Diagnosis Pre-operative examination- Primary Preoperative examination, [...] for breast cancer documented in this encounter [facility] note* Diagnosis Pre-operative examination- Primary Preoperative examination, [...] Prediabetes Other abnormal glucose SAH (subarachnoid hemorrhage) ([facility])- Primary Subarachnoid hemorrhage Dysphagia, oropharyngeal Dysphagia, oropharyngeal [...] insulin (HCC)- Primary [facility] Diagnosis Pre-operative examination- Primary Preoperative [...] Prediabetes Other abnormal glucose SAH (subarachnoid hemorrhage) ([facility])- Primary Subarachnoid hemorrhage Dysphagia, oropharyngeal Dysphagia, oropharyngeal [...] insulin (HCC)- Primary [facility] Diagnosis Pre-operative examination- Primary Preoperative [...] Prediabetes Other abnormal glucose SAH (subarachnoid hemorrhage) ([facility])- Primary Subarachnoid hemorrhage Dysphagia, oropharyngeal Dysphagia, oropharyngeal [...] Screening for nephropathy [facility] Diagnosis Pre-operative examination- Primary Preoperative [...] Prediabetes Other abnormal glucose SAH (subarachnoid hemorrhage) ([facility])- Primary Subarachnoid hemorrhage Dysphagia, oropharyngeal Dysphagia, oropharyngeal [...] site not specified [facility] Diagnosis Pre-operative examination- Primary Preoperative [...] Prediabetes Other abnormal glucose SAH (subarachnoid hemorrhage) ([facility])- Primary Subarachnoid hemorrhage Dysphagia, oropharyngeal Dysphagia, oropharyngeal [...] both ulnar nerves [facility] Diagnosis Pre-operative examination- Primary Preoperative [...] site unspecified- Primary documented in this encounter [facility] note* Diagnosis Pre-operative examination- Primary Preoperative examination, [...] Prediabetes Other abnormal glucose SAH (subarachnoid hemorrhage) ([facility])- Primary Subarachnoid hemorrhage Dysphagia, oropharyngeal Dysphagia, oropharyngeal [...] of insulin (HCC) [facility] Diagnosis Pre-operative examination- Primary Preoperative [...] Prediabetes Other abnormal glucose SAH (subarachnoid hemorrhage) ([facility])- Primary Subarachnoid hemorrhage Dysphagia, oropharyngeal Dysphagia, oropharyngeal [...] left breast (HCC) documented in this encounter [facility] Discharge instructions Additional Instructions Follow-up with your doctor to ensure you are improving. Antivert for dizziness. Return if feeling worse.[facility] Work Phone: Reason for referral (narrative)* Diagnostic Procedure Only (Routine) - Closed Specialty Diagnoses / Procedures Referred By George mckeon Referred To Contact XR IMAGING Diagnoses Right knee pain, unspecified chronicity Procedures XR KNEE POST OP 3V AP/LAT/MERCHANT RIGHT RADIOLOGIC EXAMINATION KNEE 3 VIEWS Rigoberto Chase APRN.CNP [address] [address] Xr Imaging Referral ID Status Reason Start Date Expiration Date V isits Requested Visits Authorized [id number] Closed Auto-Generate d Referral 07/18/2021 08/16/2022 1 1 [facility] for referral (narrative)* Diagnostic Procedure Only (Urgent) - Closed Specialty Diagnoses / Procedures Referred By Contac mike Referred To Contact XR IMAGING Diagnoses Acute right ankle pain Procedures XR ANKLE GENERAL 3V AP/LAT/OBL RIGHT RADEX ANKLE COMPLETE MINIMUM 3 VIEWS Ruiz Serrato APRN.CNP [address] [place] [address] Xr Imaging Referral ID Status Reason Start Date Expiration Date V isits Requested Visits Authorized [id number] Closed Auto-Generate d Referral 10/08/2021 11/07/2022 1 1 [facility] for referral (narrative)* Diagnostic Procedure Only (Routine) - Authorized Specialty Diagnoses / Procedures Referred By Contac t Referred To Contact BR IMAGING Diagnoses Screening breast examination Procedures WILLIE SCREENING SCREENING MAMMOGRAPHY BI 2-VIEW BREAST INC CAD Sheela Celeste PA-C [address] [place] [address] Br Imaging [address] [place] [address] Referral ID Status Reason Start Date Expiration Date Visits Requested Visits Authorized [id number] Authorized Auto-Generat ed Referral 12/23/2022 01/22/2024 1 1 [facility] for referral (narrative)* Diagnostic Procedure Only (Routine) - Pending Review Specialty Diagnoses / Procedures Referred By George t Referred To Contact BR IMAGING Diagnoses Bilateral fibrocystic breast changes Personal history of breast cancer S/P bilateral breast lumpectomy Mass of lower outer quadrant of right breast Procedures US BREAST LTD RIGHT US BREAST UNI REAL TIME WITH IMAGE LIMITED Sheela Celeste PA-C [address] [place] [address] Br Imaging [address] [place] [address] Referral ID Status Reason Start Date Expiration Date Visits Requested Visits Authorized [id number] Pending Review Auto-Generat ed Referral 12/24/2022 01/23/2024 [...] COMPUTER-AIDED DETCJ BI Sheela Celeste PA-C [address] [place] [address] Br Imaging [address] [place] [phone] Referral ID Status Reason Start Date Expiration Date Visits Requested Visits Authorized [id number] Authorized Auto-Generat ed Referral 12/24/2022 01/23/2024 1 1 [facility] for referral (narrative)* Diagnostic Procedure Only (Routine) - Closed Specialty Diagnoses / Procedures Referred By Contac t Referred To Contact MR IMAGING Diagnoses Intracranial aneurysm Procedures MRA BRAIN WO/W IVCON MRA; HEAD W & WO CONTRAST Adeline Mares, FRENCH TRANSLATOR [address] [place] [address] Mr Imaging [facility] Referral ID Status Reason Start Date Expiration Date Visits Re quested Visits Authorized [id number] Closed 02/27/2023 03/29/2023 1 1 [facility] for referral (narrative)* Diagnostic Procedure Only (Routine) - Authorized Specialty Diagnoses / Procedures Referred By Contac t Referred To Contact BR IMAGING Diagnoses Screening mammogram for breast cancer Procedures WILLIE SCREENING W AVNI SCREENING DIGITAL BREAST TOMOSYNTHESIS BI SCREENING MAMMOGRAPHY BI 2-VIEW BREAST INC Bradford Walters APRN.EDGE CUTTING MACHINE OPERATOR [address] [place] [address] Br Imaging [address] [place] [phone] Referral ID Status Reason Start Date Expiration Date Visits Requested Visits Authorized [id number] Authorized Auto-Generat ed Referral 01/01/2024 01/30/2025 1 1 [facility] for referral (narrative)* Diagnostic Procedure Only (Urgent) - Closed Specialty Diagnoses / Procedures Referred By Contac t Referred To Contact XR IMAGING Diagnoses Acute left ankle pain Foot pain, left Procedures XR FOOT GENERAL 3V AP/LAT/OBL LEFT RADEX FOOT COMPLETE MINIMUM 3 VIEWS Ruiz Serrato APRN.FRENCH TRANSLATOR [address] [place] [address] [place] [address] Referral ID Status Reason Start Date Expiration Date V isits Requested Visits Authorized [id number] Closed Auto-Generate d Referral 10/14/2023 11/12/2024 1 1 * Diagnostic Procedure Only (Urgent) - Closed Specialty Diagnoses / Procedures Referred By Contac t Referred To Contact XR IMAGING Diagnoses Acute left ankle pain Foot pain, left Procedures XR ANKLE GENERAL 3V AP/LAT/OBL LEFT RADEX ANKLE COMPLETE MINIMUM 3 VIEWS Ruiz Serrato APRN.FRENCH TRANSLATOR [address] [place] [address] [place] [address] Referral ID Status Reason Start Date Expiration Date V isits Requested Visits Authorized [id number] Closed Auto-Generate d Referral 10/14/2023 11/12/2024 1 1 [facility] for referral (narrative)* Diagnostic Procedure Only (Routine) - Closed Specialty Diagnoses / Procedures Referred By Contac t Referred To Contact BR IMAGING Diagnoses Screening mammogram for breast cancer Procedures WILLIE SCREENING W AVNI SCREENING DIGITAL BREAST TOMOSYNTHESIS BI SCREENING MAMMOGRAPHY BI 2-VIEW BREAST INC Bradford Walters APRN.EDGE CUTTING MACHINE OPERATOR [address] [place] [address] Br Imaging [address] [place] [address] Referral ID Status Reason Start Date Expiration Date V isits Requested Visits Authorized [id number] Closed Auto-Generate d Referral 01/01/2024 01/30/2025 1 1 [facility] for referral (narrative)* Diagnostic Procedure Only (Routine) - Closed Specialty Diagnoses / Procedures Referred By Contac t Referred To Contact BR IMAGING Diagnoses Bilateral fibrocystic breast changes Personal history of breast cancer S/P bilateral breast lumpectomy Mass of lower outer quadrant of right breast Procedures US BREAST LTD RIGHT US BREAST UNI REAL TIME WITH IMAGE LIMITED Sheela Celeste PA-C [address] [place] [address] Br Imaging [address] [place] [address] Referral ID Status Reason Start Date Expiration Date V isits Requested Visits Authorized [id number] Closed Auto-Generate d Referral 12/24/2022 01/23/2024 1 1 [facility] for referral (narrative)* Diagnostic Procedure Only (Urgent) - Closed Specialty Diagnoses / Procedures Referred By Contac t Referred To Contact XR IMAGING Diagnoses Acute right ankle pain Procedures XR ANKLE GENERAL 3V AP/LAT/OBL RIGHT RADEX ANKLE COMPLETE MINIMUM 3 VIEWS Ruiz Serrato, APRON WORKER.FRENCH TRANSLATOR [address] [facility] [place] [address] Xr Imaging [facility]95 Referral ID Status Reason Start Date Expiration Date V isits Requested Visits Authorized [id number] Closed Auto-Generate d Referral 10/08/2021 11/07/2022 1 1 [facility] for referral (narrative)* Diagnostic Procedure Only (Routine) - Closed Specialty Diagnoses / Procedures Referred By Contac t Referred To Contact XR IMAGING Diagnoses Arthritis of hand Procedures XR HAND GENERAL 3V PA/LAT/OBL BILATERAL RADEX HAND MINIMUM 3 VIEWS Ruddy Cooper MD [address] [place] [address] [place] [address] Referral ID Status Reason Start Date Expiration Date V isits Requested Visits Authorized [id number] Closed Auto-Generate d Referral 02/26/2024 03/27/2025 1 1 [facility] for referral (narrative)No reason for referral information availableWS[facility] Work Phone: Reason for visit Narrative* Diagnostic Procedure Only (Routine) - Authorized Specialty Diagnoses / Procedures [facility] To Contact BR IMAG[facility] Diagnoses Screening breast examination Procedures WILLIE SCREENING SCREENING MAMMOGRAPHY BI 2-VIEW BREAST INC CAD Sheela Celeste PA-C [address] [place] [address] Br Imaging [address] [place] [address] Referral ID Status Reason Start Date Expiration Date Visits Requested Visits Authorized [id number] Authorized Auto-Generat ed Referral 12/23/2022 01/22/2024 1 1 [facility] for visit Narrative* Diagnostic Procedure Only (Routine) - Closed Specialty Diagnoses / Procedures [facility] Referred To Contact MR IMAGING Diagnoses Intracranial aneurysm Procedures MRA BRAIN WO/W IVCON MRA; HEAD W & WO CONTRAST Adeline Mares, APRON WORKER.FRENCH TRANSLATOR [address] [place] [address] Mr Imaging [facility]95 Referral ID Status Reason Start Date Expiration Date Visits Re quested Visits Authorized [id number] Closed 02/27/2023 03/29/2023 1 1 [facility] for visit Narrative* Diagnostic Procedure Only (Routine) - Closed Specialty Diagnoses / Procedures [facility] Ref[facility] To Contact CT IMAGING Diagnoses History of abdominal surgery Abdominal pain, chronic, generalized Procedures CT ABD/PEL WO IVCON CT ABD & PELVIS W/O CONTRAST Bradford Love, APRON WORKER.EDGE CUTTING MACHINE OPERATOR [address] [place] [address] Ct Imaging [facility]95 Referral ID Status Reason Start Date Expiration Date V isits Requested Visits Authorized [id number] Closed Auto-Generate d Referral 09/23/2023 10/23/2023 2 1 [facility] for visit Narrative* Diagnostic Procedure Only (Urgent) - Closed Specialty Diagnoses / Procedures [facility] Referred To Contact XR IMAGING Diagnoses Acute left ankle pain Foot pain, left Procedures XR FOOT GENERAL 3V AP/LAT/OBL LEFT RADEX FOOT COMPLETE MINIMUM 3 VIEWS Ruiz Serrato, APRON WORKER.FRENCH TRANSLATOR [address] [place] [address] [place] [address] Referral ID Status Reason Start Date Expiration Date V isits Requested Visits Authorized [id number] Closed Auto-Generate d Referral 10/14/2023 11/12/2024 1 1 [facility] for visit Narrative* Diagnostic Procedure Only (Routine) - Closed Specialty Diagnoses / Procedures Referred By Contac t Referred To Contact BR IMAGING Diagnoses Screening mammogram for breast cancer Procedures WILLIE SCREENING W AVNI SCREENING DIGITAL BREAST TOMOSYNTHESIS BI SCREENING MAMMOGRAPHY BI 2-VIEW BREAST INC Bradford Walters, APRON WORKER.EDGE CUTTING MACHINE OPERATOR [address] [place] [address] Br Imaging [address] [place] [address] Referral ID Status Reason Start Date Expiration Date V isits Requested Visits Authorized [id number] Closed Auto-Generate d Referral 01/01/2024 01/30/2025 1 1 [facility] for visit Narrative* Diagnostic Procedure Only (Urgent) - Closed Specialty Diagnoses / Procedures Referred By Contac t Referred To Contact XR IMAGING Diagnoses Acute right ankle pain Procedures XR ANKLE GENERAL 3V AP/LAT/OBL RIGHT RADEX ANKLE COMPLETE MINIMUM 3 VIEWS Ruiz Serrato, APRON WORKER.FRENCH TRANSLATOR [address] [place] [address] [place] [address] Referral ID Status Reason Start Date Expiration Date V isits Requested Visits Authorized [id number] Closed Auto-Generate d Referral 10/08/2021 11/07/2022 1 1 [facility] for visit Narrative* Diagnostic Procedure Only (Routine) - Closed Specialty Diagnoses / Procedures Referred By Contac t Referred To Contact XR IMAGING Diagnoses Arthritis of hand Procedures XR HAND GENERAL 3V PA/LAT/OBL BILATERAL RADEX HAND MINIMUM 3 VIEWS Ruddy Cooper MD [address] [place] [address] [place] [address] Referral ID Status Reason Start Date Expiration Date V isits Requested Visits Authorized [id number] Closed Auto-Generate d Referral 02/26/2024 03/27/2025 1 1 [facility] Summary Purpose Family History Relationship Condition Age at Onset Recorded Date/T jordana Not Specified Hemorrhagic disorder Unknown mother Malignant neoplasm of breast Unknown Hypertension Unknown Alzheimer's disease Unknown aunt Malignant neoplasm of breast Unknown father Coronary artery disease Unknown sister Alzheimer's disease Unknown Advance Directives Documents on File Type Date Recorded Patient Trip Follower Expl anation Advance Directive(s) 03/14/2021 1:43 PM [...] Documents on File Type Date Recorded Patient Trip Follower Expl anation Advance Directive(s) 03/14/2021 1:43 PM [...] August 29, 2021 10 :31pm Power of Fine Chemicals Operator Yes August 29, 2021 10:31pm Latest Code [...] Do you have a Healthcare Power of Fine Chemicals Operator? Yes August 26, 2024 12:16am Do you have a Healthcare Power of Fine Chemicals Operator? Yes September 08, 2024 10:13pm Advance Directives [...] THERAPEUTIC EXERCISES RE, EA 15 MIN. Pt [facility] [address] [place] [address] [facility] [address] [place] [address] Referral ID Status Reason Start Date Expiration Date Visits Requested Visits Authorized [id number] Pending Review PCP Requested Referral Auto-Generate d Referral 10/31/2021 01/29/2022 1 1 Specialty Diagnoses / Procedures Referred By George mckeon Referred To Contact MR IMAGING Diagnoses Intracranial aneurysm Procedures MRA BRAIN WO/W IVCON MRA; HEAD W & WO CONTRAST Adeline Mares, APRON WORKER.FRENCH TRANSLATOR [address] [place] [address] Mr Imaging Referral ID Status Reason Start Date Expiration Date Visits Requested Visits Authorized [id number] Pending Review Auto-Generat ed Referral 02/26/2023 03/31/2023 1 1 Specialty Diagnoses / Procedures Referred By Contac t Referred To Contact MR IMAGING Diagnoses Nonruptured cerebral aneurysm Procedures MRA BRAIN WO/W IVCON MRA; HEAD W & WO CONTRAST Gamaliel Reardon, APRON WORKER.FRENCH TRANSLATOR [address] [place] [address] [place] [id number] Referral ID Status Reason Start Date Expiration Date V isits Requested Visits Authorized [id number] Closed Auto-Generate d Referral 02/18/2022 03/20/2022 1 1 Specialty Diagnoses / Procedures Referred By Contac t Referred To Contact [facility] Diagnoses Gait difficulty Complaints of leg weakness Procedures CONSULT TO PHYSICAL THERAPY PHYSICAL THERAPY EVALUATION HIGH COMPLEX 45 MINS Bradford Love, APRON WORKER.EDGE CUTTING MACHINE OPERATOR [address] [place] [address] [facility] [place] [address] [place] [address] Referral ID Status Reason Start Date Expiration Date Visits Requested Visits Authorized [id number] Pending Review Auto-Generat ed Referral 09/08/2023 09/07/2024 1 1 Specialty Diagnoses / Procedures Referred By Contac t Referred To Contact CT IMAGING Diagnoses History of abdominal surgery Abdominal pain, chronic, generalized Procedures CT ABD/PEL WO IVCON CT ABD & PELVIS W/O CONTRAST Bradford Love, APRON WORKER.EDGE CUTTING MACHINE OPERATOR [address] [place] [address] [place] [address] Referral ID Status Reason Start Date Expiration Date Visits Requested Visits Authorized [id number] Pending Review Auto-Generat ed Referral 09/08/2023 10/07/2024 1 1 Specialty Diagnoses / Procedures Referred By Contac t Referred To Contact Ophthalmology Diagnoses Screening for diabetic retinopathy Procedures CONSULT TO OPHTHALMOLOGY OFFICE/OUTPATIENT [facility] 60 MINUTES Bradford Love, APRON WORKER.EDGE CUTTING MACHINE OPERATOR [address] [place] [address] Referral ID Status Reason Start Date Expiration Date Visits Requested Visits Authorized [id number] Authorized PCP Requested Referral 09/08/2023 09/07/2024 1 1 Specialty Diagnoses / Procedures Referred By Contac t Referred To Contact [facility] Diagnoses Gait difficulty Complaints of leg weakness Procedures PT REHAB FOLLOW UP ORDER THERAPEUTIC EXERCISES RE, EA 15 MIN. Charleen Rocha, PT [facility] [place] [address] [place] [address] Referral ID Status Reason Start Date Expiration Date Visits Requested Visits Authorized [id number] Pending Review PCP Requested Referral Auto-Generate d Referral 09/29/2023 12/28/2023 1 1 Specialty Diagnoses / Procedures Referred By Contac t Referred To Contact Podiatry Diagnoses Acute left ankle pain Foot pain, left Procedures CONSULT TO PODIATRY OFFICE/OUTPATIENT [facility] 60 MINUTES Ruiz Serrato, APRON WORKER.FRENCH TRANSLATOR [address] [place] [address] Referral ID Status Reason Start Date Expiration Date Visits Requested Visits Authorized [id number] Authorized PCP Requested Referral 10/14/2023 10/13/2024 1 1 Specialty Diagnoses / Procedures Referred By Contac t Referred To Contact XR IMAGING Diagnoses Acute left ankle pain Foot pain, left Procedures XR FOOT GENERAL 3V AP/LAT/OBL LEFT RADEX FOOT COMPLETE MINIMUM 3 VIEWS Ruiz Serrato, APRON WORKER.FRENCH TRANSLATOR [address] [place] [address] [place] [address] Referral ID Status Reason Start Date Expiration Date V isits Requested Visits Authorized [id number] Closed Auto-Generate d Referral 10/14/2023 11/12/2024 1 1 Specialty Diagnoses / Procedures Referred By Contac t Referred To Contact XR IMAGING Diagnoses Acute left ankle pain Foot pain, left Procedures XR ANKLE GENERAL 3V AP/LAT/OBL LEFT RADEX ANKLE COMPLETE MINIMUM 3 VIEWS Ruiz Serrato, SHAHID.FRENCH TRANSLATOR [address] [place] [address] [place] [id number] Referral ID Status Reason Start Date Expiration Date V isits Requested Visits Authorized [id number] Closed Auto-Generate d Referral 10/14/2023 11/12/2024 1 1 Specialty Diagnoses / Procedures Referred By Contac t Referred To Contact [facility] Diagnoses Generalized abdominal pain History of abdominal surgery Procedures CONSULT TO PHYSICAL THERAPY PHYSICAL THERAPY EVALUATION HIGH COMPLEX 45 MINS Ruddy Cooper MD [address] [place] [address] [facility] [place] [address] [place], [place] [address] Referral ID Status Reason Start Date Expiration Date Visits Requested Visits Authorized [id number] Pending Review Auto-Generat ed Referral 10/13/2023 10/12/2024 1 1 Specialty Diagnoses / Procedures Referred By Contac t Referred To Contact [facility] Diagnoses Complaints of leg weakness Gait difficulty Procedures PT REHAB FOLLOW UP ORDER THERAPEUTIC EXERCISES RE, EA 15 MIN. Charleen Rocha, PT [facility] [place] [address] [place], [place] [address] Referral ID Status Reason Start Date Expiration Date Visits Requested Visits Authorized [id number] New Request PCP Requested Referral Auto-Generate d Referral 11/26/2023 02/24/2024 1 1 Referral ID Status Reason Start Date Expiration Date Visits Requested Visits Authorized [id number] New Request PCP Requested Referral Auto-Generate d Referral 12/16/2023 03/15/2024 1 1 Specialty Diagnoses / Procedures Referred By Contac t Referred To Contact Ent - Otolaryngology Diagnoses Tinnitus of both ears Procedures CONSULT TO ENT OFFICE/OUTPATIENT [facility] MDM 60 MINUTES Bradford Love, APRON WORKER.EDGE CUTTING MACHINE OPERATOR [address] [place] [address] Referral ID Status Reason Start Date Expiration Date Visits Requested Visits Authorized [id number] Authorized PCP Requested Referral 12/19/2023 12/18/2024 1 1 Specialty Diagnoses / Procedures Referred By Contac t Referred To [facility] Diagnoses Hypertension Syncope, unspecified syncope type Procedures ECHO ECHO TTHRC R-T 2D W/WOM-MODE COMPL SPEC&COLR D Bradford Love, APRON WORKER.EDGE CUTTING MACHINE OPERATOR [address] [place] [address] [facility] [address] [place] [address] Referral ID Status Reason Start Date Expiration Date Visits Requested Visits Authorized [id number] Pending Review Auto-Generat ed Referral 12/19/2023 12/18/2024 1 1 Additional Source Comments INFORMATION SOURCE (unrecogn ized section and content) DATE CREATED AUTHOR 12/16/2020 [facility] DATE CREATED AUTHOR AUTHOR'S ORGANIZ ATION 08/08/2021 [facility] DATE CREATED AUTHOR AUTHOR'S ORGANIZ ATION 09/16/2024 [facility] DATE CREATED AUTHOR AUTHOR'S ORGANIZ ATION 09/25/2024 [facility] Source Comments (unrecognize d section and content) In the event this informatio n is protected by the Federal Confidentiality of Alcohol and Drug Abuse Patient Records regulations: The Federal rules restrict any use of the information to criminally investigate or prosecute any alcohol or drug abuse patient.[facility] the event this information is protected by the Federal Confidentiality of Alcohol and Drug Abuse Patient Records regulations: The Federal rules restrict any use of the information to criminally investigate or prosecute any alcohol or drug abuse patient.[facility] HospitalIn the event this information is protected by the Federal Confidentiality of Alcohol and Drug Abuse Patient Records regulations: The Federal rules restrict any use of the information to criminally investigate or prosecute any alcohol or drug abuse patient.[facility] HospitalIn the event this information is protected by the Federal Confidentiality of Alcohol and Drug Abuse Patient Records regulations: The Federal rules restrict any use of the information to criminally investigate or prosecute any alcohol or drug abuse patient.[facility] HospitalIn the event this information is protected by the Federal Confidentiality of Alcohol and Drug Abuse Patient Records regulations: The Federal rules restrict any use of the information to criminally investigate or prosecute any alcohol or drug abuse patient.[facility] HospitalIn the event this information is protected by the Federal Confidentiality of Alcohol and Drug Abuse Patient Records regulations: The Federal rules restrict any use of the information to criminally investigate or prosecute any alcohol or drug abuse patient.[facility] HospitalIn the event this information is protected by the Federal Confidentiality of Alcohol and Drug Abuse Patient Records regulations: The Federal rules restrict any use of the information to criminally investigate or prosecute any alcohol or drug abuse patient.[facility] HospitalIn the event this information is protected by the Federal Confidentiality of Alcohol and Drug Abuse Patient Records regulations: The Federal rules restrict any use of the information to criminally investigate or prosecute any alcohol or drug abuse patient.[facility] HospitalIn the event this information is protected by the Federal Confidentiality of Alcohol and Drug Abuse Patient Records regulations: The Federal rules restrict any use of the information to criminally investigate or prosecute any alcohol or drug abuse patient.[facility] HospitalIn the event this information is protected by the Federal Confidentiality of Alcohol and Drug Abuse Patient Records regulations: The Federal rules restrict any use of the information to criminally investigate or prosecute any alcohol or drug abuse patient.[facility] HospitalIn the event this information is protected by the Federal Confidentiality of Alcohol and Drug Abuse Patient Records regulations: The Federal rules restrict any use of the information to criminally investigate or prosecute any alcohol or drug abuse patient.[facility] HospitalIn the event this information is protected by the Federal Confidentiality of Alcohol and Drug Abuse Patient Records regulations: The Federal rules restrict any use of the information to criminally investigate or prosecute any alcohol or drug abuse patient.[facility] HospitalIn the event this information is protected by the Federal Confidentiality of Alcohol and Drug Abuse Patient Records regulations: The Federal rules restrict any use of the information to criminally investigate or prosecute any alcohol or drug abuse patient.[facility] HospitalIn the event this information is protected by the Federal Confidentiality of Alcohol and Drug Abuse Patient Records regulations: The Federal rules restrict any use of the information to criminally investigate or prosecute any alcohol or drug abuse patient.[facility] HospitalIn the event this information is protected by the Federal Confidentiality of Alcohol and Drug Abuse Patient Records regulations: The Federal rules restrict any use of the information to criminally investigate or prosecute any alcohol or drug abuse patient.[facility] HospitalIn the event this information is protected by the Federal Confidentiality of Alcohol and Drug Abuse Patient Records regulations: The Federal rules restrict any use of the information to criminally investigate or prosecute any alcohol or drug abuse patient.[facility] HospitalIn the event this information is protected by the Federal Confidentiality of Alcohol and Drug Abuse Patient Records regulations: The Federal rules restrict any use of the information to criminally investigate or prosecute any alcohol or drug abuse patient.[facility] HospitalIn the event this information is protected by the Federal Confidentiality of Alcohol and Drug Abuse Patient Records regulations: The Federal rules restrict any use of the information to criminally investigate or prosecute any alcohol or drug abuse patient.[facility] HospitalIn the event this information is protected by the Federal Confidentiality of Alcohol and Drug Abuse Patient Records regulations: The Federal rules restrict any use of the information to criminally investigate or prosecute any alcohol or drug abuse patient.[facility] HospitalIn the event this information is protected by the Federal Confidentiality of Alcohol and Drug Abuse Patient Records regulations: The Federal rules restrict any use of the information to criminally investigate or prosecute any alcohol or drug abuse patient.[facility] HospitalIn the event this information is protected by the Federal Confidentiality of Alcohol and Drug Abuse Patient Records regulations: The Federal rules restrict any use of the information to criminally investigate or prosecute any alcohol or drug abuse patient.[facility] HospitalIn the event this information is protected by the Federal Confidentiality of Alcohol and Drug Abuse Patient Records regulations: The Federal rules restrict any use of the information to criminally investigate or prosecute any alcohol or drug abuse patient.[facility] HospitalIn the event this information is protected by the Federal Confidentiality of Alcohol and Drug Abuse Patient Records regulations: The Federal rules restrict any use of the information to criminally investigate or prosecute any alcohol or drug abuse patient.[facility] HospitalIn the event this information is protected by the Federal Confidentiality of Alcohol and Drug Abuse Patient Records regulations: The Federal rules restrict any use of the information to criminally investigate or prosecute any alcohol or drug abuse patient.[facility] HospitalIn the event this information is protected by the Federal Confidentiality of Alcohol and Drug Abuse Patient Records regulations: The Federal rules restrict any use of the information to criminally investigate or prosecute any alcohol or drug abuse patient.[facility] HospitalIn the event this information is protected by the Federal Confidentiality of Alcohol and Drug Abuse Patient Records regulations: The Federal rules restrict any use of the information to criminally investigate or prosecute any alcohol or drug abuse patient.[facility] HospitalIn the event this information is protected by the Federal Confidentiality of Alcohol and Drug Abuse Patient Records regulations: The Federal rules restrict any use of the information to criminally investigate or prosecute any alcohol or drug abuse patient.[facility] HospitalIn the event this information is protected by the Federal Confidentiality of Alcohol and Drug Abuse Patient Records regulations: The Federal rules restrict any use of the information to criminally investigate or prosecute any alcohol or drug abuse patient.[facility] HospitalIn the event this information is protected by the Federal Confidentiality of Alcohol and Drug Abuse Patient Records regulations: The Federal rules restrict any use of the information to criminally investigate or prosecute any alcohol or drug abuse patient.[facility] HospitalIn the event this information is protected by the Federal Confidentiality of Alcohol and Drug Abuse Patient Records regulations: The Federal rules restrict any use of the information to criminally investigate or prosecute any alcohol or drug abuse patient.[facility] HospitalIn the event this information is protected by the Federal Confidentiality of Alcohol and Drug Abuse Patient Records regulations: The Federal rules restrict any use of the information to criminally investigate or prosecute any alcohol or drug abuse patient.[facility] HospitalIn the event this information is protected by the Federal Confidentiality of Alcohol and Drug Abuse Patient Records regulations: The Federal rules restrict any use of the information to criminally investigate or prosecute any alcohol or drug abuse patient.[facility] HospitalIn the event this information is protected by the Federal Confidentiality of Alcohol and Drug Abuse Patient Records regulations: The Federal rules restrict any use of the information to criminally investigate or prosecute any alcohol or drug abuse patient.[facility] HospitalIn the event this information is protected by the Federal Confidentiality of Alcohol and Drug Abuse Patient Records regulations: The Federal rules restrict any use of the information to criminally investigate or prosecute any alcohol or drug abuse patient.[facility] HospitalIn the event this information is protected by the Federal Confidentiality of Alcohol and Drug Abuse Patient Records regulations: The Federal rules restrict any use of the information to criminally investigate or prosecute any alcohol or drug abuse patient.[facility] HospitalIn the event this information is protected by the Federal Confidentiality of Alcohol and Drug Abuse Patient Records regulations: The Federal rules restrict any use of the information to criminally investigate or prosecute any alcohol or drug abuse patient.[facility] HospitalIn the event this information is protected by the Federal Confidentiality of Alcohol and Drug Abuse Patient Records regulations: The Federal rules restrict any use of the information to criminally investigate or prosecute any alcohol or drug abuse patient.[facility] HospitalIn the event this information is protected by the Federal Confidentiality of Alcohol and Drug Abuse Patient Records regulations: The Federal rules restrict any use of the information to criminally investigate or prosecute any alcohol or drug abuse patient.[facility] HospitalIn the event this information is protected by the Federal Confidentiality of Alcohol and Drug Abuse Patient Records regulations: The Federal rules restrict any use of the information to criminally investigate or prosecute any alcohol or drug abuse patient.[facility] HospitalIn the event this information is protected by the Federal Confidentiality of Alcohol and Drug Abuse Patient Records regulations: The Federal rules restrict any use of the information to criminally investigate or prosecute any alcohol or drug abuse patient.[facility] HospitalIn the event this information is protected by the Federal Confidentiality of Alcohol and Drug Abuse Patient Records regulations: The Federal rules restrict any use of the information to criminally investigate or prosecute any alcohol or drug abuse patient.[facility] HospitalIn the event this information is protected by the Federal Confidentiality of Alcohol and Drug Abuse Patient Records regulations: The Federal rules restrict any use of the information to criminally investigate or prosecute any alcohol or drug abuse patient.[facility] HospitalIn the event this information is protected by the Federal Confidentiality of Alcohol and Drug Abuse Patient Records regulations: The Federal rules restrict any use of the information to criminally investigate or prosecute any alcohol or drug abuse patient.[facility] HospitalIn the event this information is protected by the Federal Confidentiality of Alcohol and Drug Abuse Patient Records regulations: The Federal rules restrict any use of the information to criminally investigate or prosecute any alcohol or drug abuse patient.[facility] HospitalIn the event this information is protected by the Federal Confidentiality of Alcohol and Drug Abuse Patient Records regulations: The Federal rules restrict any use of the information to criminally investigate or prosecute any alcohol or drug abuse patient.[facility] HospitalIn the event this information is protected by the Federal Confidentiality of Alcohol and Drug Abuse Patient Records regulations: The Federal rules restrict any use of the information to criminally investigate or prosecute any alcohol or drug abuse patient.[facility] HospitalIn the event this information is protected by the Federal Confidentiality of Alcohol and Drug Abuse Patient Records regulations: The Federal rules restrict any use of the information to criminally investigate or prosecute any alcohol or drug abuse patient.[facility] HospitalIn the event this information is protected by the Federal Confidentiality of Alcohol and Drug Abuse Patient Records regulations: The Federal rules restrict any use of the information to criminally investigate or prosecute any alcohol or drug abuse patient.[facility] HospitalIn the event this information is protected by the Federal Confidentiality of Alcohol and Drug Abuse Patient Records regulations: The Federal rules restrict any use of the information to criminally investigate or prosecute any alcohol or drug abuse patient.[facility] HospitalIn the event this information is protected by the Federal Confidentiality of Alcohol and Drug Abuse Patient Records regulations: The Federal rules restrict any use of the information to criminally investigate or prosecute any alcohol or drug abuse patient.[facility] HospitalIn the event this information is protected by the Federal Confidentiality of Alcohol and Drug Abuse Patient Records regulations: The Federal rules restrict any use of the information to criminally investigate or prosecute any alcohol or drug abuse patient.[facility] HospitalIn the event this information is protected by the Federal Confidentiality of Alcohol and Drug Abuse Patient Records regulations: The Federal rules restrict any use of the information to criminally investigate or prosecute any alcohol or drug abuse patient.[facility] HospitalIn the event this information is protected by the Federal Confidentiality of Alcohol and Drug Abuse Patient Records regulations: The Federal rules restrict any use of the information to criminally investigate or prosecute any alcohol or drug abuse patient.[facility] HospitalIn the event this information is protected by the Federal Confidentiality of Alcohol and Drug Abuse Patient Records regulations: The Federal rules restrict any use of the information to criminally investigate or prosecute any alcohol or drug abuse patient.[facility] HospitalIn the event this information is protected by the Federal Confidentiality of Alcohol and Drug Abuse Patient Records regulations: The Federal rules restrict any use of the information to criminally investigate or prosecute any alcohol or drug abuse patient.[facility] HospitalIn the event this information is protected by the Federal Confidentiality of Alcohol and Drug Abuse Patient Records regulations: The Federal rules restrict any use of the information to criminally investigate or prosecute any alcohol or drug abuse patient.[facility] HospitalIn the event this information is protected by the Federal Confidentiality of Alcohol and Drug Abuse Patient Records regulations: The Federal rules restrict any use of the information to criminally investigate or prosecute any alcohol or drug abuse patient.[facility] HospitalIn the event this information is protected by the Federal Confidentiality of Alcohol and Drug Abuse Patient Records regulations: The Federal rules restrict any use of the information to criminally investigate or prosecute any alcohol or drug abuse patient.[facility] HospitalIn the event this information is protected by the Federal Confidentiality of Alcohol and Drug Abuse Patient Records regulations: The Federal rules restrict any use of the information to criminally investigate or prosecute any alcohol or drug abuse patient.[facility] HospitalIn the event this information is protected by the Federal Confidentiality of Alcohol and Drug Abuse Patient Records regulations: The Federal rules restrict any use of the information to criminally investigate or prosecute any alcohol or drug abuse patient.[facility] HospitalIn the event this information is protected by the Federal Confidentiality of Alcohol and Drug Abuse Patient Records regulations: The Federal rules restrict any use of the information to criminally investigate or prosecute any alcohol or drug abuse patient.[facility] HospitalIn the event this information is protected by the Federal Confidentiality of Alcohol and Drug Abuse Patient Records regulations: The Federal rules restrict any use of the information to criminally investigate or prosecute any alcohol or drug abuse patient.[facility] HospitalIn the event this information is protected by the Federal Confidentiality of Alcohol and Drug Abuse Patient Records regulations: The Federal rules restrict any use of the information to criminally investigate or prosecute any alcohol or drug abuse patient.[facility] HospitalIn the event this information is protected by the Federal Confidentiality of Alcohol and Drug Abuse Patient Records regulations: The Federal rules restrict any use of the information to criminally investigate or prosecute any alcohol or drug abuse patient.[facility] HospitalIn the event this information is protected by the Federal Confidentiality of Alcohol and Drug Abuse Patient Records regulations: The Federal rules restrict any use of the information to criminally investigate or prosecute any alcohol or drug abuse patient.[facility] HospitalIn the event this information is protected by the Federal Confidentiality of Alcohol and Drug Abuse Patient Records regulations: The Federal rules restrict any use of the information to criminally investigate or prosecute any alcohol or drug abuse patient.[facility] HospitalIn the event this information is protected by the Federal Confidentiality of Alcohol and Drug Abuse Patient Records regulations: The Federal rules restrict any use of the information to criminally investigate or prosecute any alcohol or drug abuse patient.[facility] HospitalIn the event this information is protected by the Federal Confidentiality of Alcohol and Drug Abuse Patient Records regulations: The Federal rules restrict any use of the information to criminally investigate or prosecute any alcohol or drug abuse patient.[facility] HospitalIn the event this information is protected by the Federal Confidentiality of Alcohol and Drug Abuse Patient Records regulations: The Federal rules restrict any use of the information to criminally investigate or prosecute any alcohol or drug abuse patient.[facility] HospitalIn the event this information is protected by the Federal Confidentiality of Alcohol and Drug Abuse Patient Records regulations: The Federal rules restrict any use of the information to criminally investigate or prosecute any alcohol or drug abuse patient.[facility] HospitalIn the event this information is protected by the Federal Confidentiality of Alcohol and Drug Abuse Patient Records regulations: The Federal rules restrict any use of the information to criminally investigate or prosecute any alcohol or drug abuse patient.[facility] HospitalIn the event this information is protected by the Federal Confidentiality of Alcohol and Drug Abuse Patient Records regulations: The Federal rules restrict any use of the information to criminally investigate or prosecute any alcohol or drug abuse patient.[facility] HospitalIn the event this information is protected by the Federal Confidentiality of Alcohol and Drug Abuse Patient Records regulations: The Federal rules restrict any use of the information to criminally investigate or prosecute any alcohol or drug abuse patient.[facility] HospitalIn the event this information is protected by the Federal Confidentiality of Alcohol and Drug Abuse Patient Records regulations: The Federal rules restrict any use of the information to criminally investigate or prosecute any alcohol or drug abuse patient.[facility] HospitalIn the event this information is protected by the Federal Confidentiality of Alcohol and Drug Abuse Patient Records regulations: The Federal rules restrict any use of the information to criminally investigate or prosecute any alcohol or drug abuse patient.[facility] HospitalIn the event this information is protected by the Federal Confidentiality of Alcohol and Drug Abuse Patient Records regulations: The Federal rules restrict any use of the information to criminally investigate or prosecute any alcohol or drug abuse patient.[facility] HospitalIn the event this information is protected by the Federal Confidentiality of Alcohol and Drug Abuse Patient Records regulations: The Federal rules restrict any use of the information to criminally investigate or prosecute any alcohol or drug abuse patient.[facility] HospitalIn the event this information is protected by the Federal Confidentiality of Alcohol and Drug Abuse Patient Records regulations: The Federal rules restrict any use of the information to criminally investigate or prosecute any alcohol or drug abuse patient.[facility] HospitalIn the event this information is protected by the Federal Confidentiality of Alcohol and Drug Abuse Patient Records regulations: The Federal rules restrict any use of the information to criminally investigate or prosecute any alcohol or drug abuse patient.[facility] HospitalIn the event this information is protected by the Federal Confidentiality of Alcohol and Drug Abuse Patient Records regulations: The Federal rules restrict any use of the information to criminally investigate or prosecute any alcohol or drug abuse patient.[facility] HospitalIn the event this information is protected by the Federal Confidentiality of Alcohol and Drug Abuse Patient Records regulations: The Federal rules restrict any use of the information to criminally investigate or prosecute any alcohol or drug abuse patient.[facility] HospitalIn the event this information is protected by the Federal Confidentiality of Alcohol and Drug Abuse Patient Records regulations: The Federal rules restrict any use of the information to criminally investigate or prosecute any alcohol or drug abuse patient.[facility] HospitalIn the event this information is protected by the Federal Confidentiality of Alcohol and Drug Abuse Patient Records regulations: The Federal rules restrict any use of the information to criminally investigate or prosecute any alcohol or drug abuse patient.[facility] HospitalIn the event this information is protected by the Federal Confidentiality of Alcohol and Drug Abuse Patient Records regulations: The Federal rules restrict any use of the information to criminally investigate or prosecute any alcohol or drug abuse patient.[facility] HospitalIn the event this information is protected by the Federal Confidentiality of Alcohol and Drug Abuse Patient Records regulations: The Federal rules restrict any use of the information to criminally investigate or prosecute any alcohol or drug abuse patient.[facility] HospitalIn the event this information is protected by the Federal Confidentiality of Alcohol and Drug Abuse Patient Records regulations: The Federal rules restrict any use of the information to criminally investigate or prosecute any alcohol or drug abuse patient.[facility] HospitalIn the event this information is protected by the Federal Confidentiality of Alcohol and Drug Abuse Patient Records regulations: The Federal rules restrict any use of the information to criminally investigate or prosecute any alcohol or drug abuse patient.[facility] HospitalIn the event this information is protected by the Federal Confidentiality of Alcohol and Drug Abuse Patient Records regulations: The Federal rules restrict any use of the information to criminally investigate or prosecute any alcohol or drug abuse patient.[facility] HospitalIn the event this information is protected by the Federal Confidentiality of Alcohol and Drug Abuse Patient Records regulations: The Federal rules restrict any use of the information to criminally investigate or prosecute any alcohol or drug abuse patient.[facility] HospitalIn the event this information is protected by the Federal Confidentiality of Alcohol and Drug Abuse Patient Records regulations: The Federal rules restrict any use of the information to criminally investigate or prosecute any alcohol or drug abuse patient.[facility] HospitalIn the event this information is protected by the Federal Confidentiality of Alcohol and Drug Abuse Patient Records regulations: The Federal rules restrict any use of the information to criminally investigate or prosecute any alcohol or drug abuse patient.[facility] HospitalIn the event this information is protected by the Federal Confidentiality of Alcohol and Drug Abuse Patient Records regulations: The Federal rules restrict any use of the information to criminally investigate or prosecute any alcohol or drug abuse patient.[facility] HospitalIn the event this information is protected by the Federal Confidentiality of Alcohol and Drug Abuse Patient Records regulations: The Federal rules restrict any use of the information to criminally investigate or prosecute any alcohol or drug abuse patient.[facility] HospitalIn the event this information is protected by the Federal Confidentiality of Alcohol and Drug Abuse Patient Records regulations: The Federal rules restrict any use of the information to criminally investigate or prosecute any alcohol or drug abuse patient.[facility] HospitalIn the event this information is protected by the Federal Confidentiality of Alcohol and Drug Abuse Patient Records regulations: The Federal rules restrict any use of the information to criminally investigate or prosecute any alcohol or drug abuse patient.[facility] HospitalIn the event this information is protected by the Federal Confidentiality of Alcohol and Drug Abuse Patient Records regulations: The Federal rules restrict any use of the information to criminally investigate or prosecute any alcohol or drug abuse patient.[facility] HospitalIn the event this information is protected by the Federal Confidentiality of Alcohol and Drug Abuse Patient Records regulations: The Federal rules restrict any use of the information to criminally investigate or prosecute any alcohol or drug abuse patient.[facility] HospitalIn the event this information is protected by the Federal Confidentiality of Alcohol and Drug Abuse Patient Records regulations: The Federal rules restrict any use of the information to criminally investigate or prosecute any alcohol or drug abuse patient.[facility] HospitalIn the event this information is protected by the Federal Confidentiality of Alcohol and Drug Abuse Patient Records regulations: The Federal rules restrict any use of the information to criminally investigate or prosecute any alcohol or drug abuse patient.[facility] HospitalIn the event this information is protected by the Federal Confidentiality of Alcohol and Drug Abuse Patient Records regulations: The Federal rules restrict any use of the information to criminally investigate or prosecute any alcohol or drug abuse patient.[facility] HospitalIn the event this information is protected by the Federal Confidentiality of Alcohol and Drug Abuse Patient Records regulations: The Federal rules restrict any use of the information to criminally investigate or prosecute any alcohol or drug abuse patient.[facility] HospitalIn the event this information is protected by the Federal Confidentiality of Alcohol and Drug Abuse Patient Records regulations: The Federal rules restrict any use of the information to criminally investigate or prosecute any alcohol or drug abuse patient.[facility] HospitalIn the event this information is protected by the Federal Confidentiality of Alcohol and Drug Abuse Patient Records regulations: The Federal rules restrict any use of the information to criminally investigate or prosecute any alcohol or drug abuse patient.[facility] HospitalIn the event this information is protected by the Federal Confidentiality of Alcohol and Drug Abuse Patient Records regulations: The Federal rules restrict any use of the information to criminally investigate or prosecute any alcohol or drug abuse patient.[facility] HospitalIn the event this information is protected by the Federal Confidentiality of Alcohol and Drug Abuse Patient Records regulations: The Federal rules restrict any use of the information to criminally investigate or prosecute any alcohol or drug abuse patient.[facility] HospitalIn the event this information is protected by the Federal Confidentiality of Alcohol and Drug Abuse Patient Records regulations: The Federal rules restrict any use of the information to criminally investigate or prosecute any alcohol or drug abuse patient.[facility] HospitalIn the event this information is protected by the Federal Confidentiality of Alcohol and Drug Abuse Patient Records regulations: The Federal rules restrict any use of the information to criminally investigate or prosecute any alcohol or drug abuse patient.[facility] HospitalIn the event this information is protected by the Federal Confidentiality of Alcohol and Drug Abuse Patient Records regulations: The Federal rules restrict any use of the information to criminally investigate or prosecute any alcohol or drug abuse patient.[facility] HospitalIn the event this information is protected by the Federal Confidentiality of Alcohol and Drug Abuse Patient Records regulations: The Federal rules restrict any use of the information to criminally investigate or prosecute any alcohol or drug abuse patient.[facility] HospitalIn the event this information is protected by the Federal Confidentiality of Alcohol and Drug Abuse Patient Records regulations: The Federal rules restrict any use of the information to criminally investigate or prosecute any alcohol or drug abuse patient.[facility] HospitalIn the event this information is protected by the Federal Confidentiality of Alcohol and Drug Abuse Patient Records regulations: The Federal rules restrict any use of the information to criminally investigate or prosecute any alcohol or drug abuse patient.[facility] HospitalIn the event this information is protected by the Federal Confidentiality of Alcohol and Drug Abuse Patient Records regulations: The Federal rules restrict any use of the information to criminally investigate or prosecute any alcohol or drug abuse patient.[facility] HospitalIn the event this information is protected by the Federal Confidentiality of Alcohol and Drug Abuse Patient Records regulations: The Federal rules restrict any use of the information to criminally investigate or prosecute any alcohol or drug abuse patient.[facility] HospitalIn the event this information is protected by the Federal Confidentiality of Alcohol and Drug Abuse Patient Records regulations: The Federal rules restrict any use of the information to criminally investigate or prosecute any alcohol or drug abuse patient.[facility] HospitalIn the event this information is protected by the Federal Confidentiality of Alcohol and Drug Abuse Patient Records regulations: The Federal rules restrict any use of the information to criminally investigate or prosecute any alcohol or drug abuse patient.[facility] HospitalIn the event this information is protected by the Federal Confidentiality of Alcohol and Drug Abuse Patient Records regulations: The Federal rules restrict any use of the information to criminally investigate or prosecute any alcohol or drug abuse patient.[facility] HospitalIn the event this information is protected by the Federal Confidentiality of Alcohol and Drug Abuse Patient Records regulations: The Federal rules restrict any use of the information to criminally investigate or prosecute any alcohol or drug abuse patient.[facility] HospitalIn the event this information is protected by the Federal Confidentiality of Alcohol and Drug Abuse Patient Records regulations: The Federal rules restrict any use of the information to criminally investigate or prosecute any alcohol or drug abuse patient.[facility] HospitalIn the event this information is protected by the Federal Confidentiality of Alcohol and Drug Abuse Patient Records regulations: The Federal rules restrict any use of the information to criminally investigate or prosecute any alcohol or drug abuse patient.[facility] HospitalIn the event this information is protected by the Federal Confidentiality of Alcohol and Drug Abuse Patient Records regulations: The Federal rules restrict any use of the information to criminally investigate or prosecute any alcohol or drug abuse patient.[facility] HospitalIn the event this information is protected by the Federal Confidentiality of Alcohol and Drug Abuse Patient Records regulations: The Federal rules restrict any use of the information to criminally investigate or prosecute any alcohol or drug abuse patient.[facility] HospitalIn the event this information is protected by the Federal Confidentiality of Alcohol and Drug Abuse Patient Records regulations: The Federal rules restrict any use of the information to criminally investigate or prosecute any alcohol or drug abuse patient.[facility] HospitalIn the event this information is protected by the Federal Confidentiality of Alcohol and Drug Abuse Patient Records regulations: The Federal rules restrict any use of the information to criminally investigate or prosecute any alcohol or drug abuse patient.[facility] HospitalIn the event this information is protected by the Federal Confidentiality of Alcohol and Drug Abuse Patient Records regulations: The Federal rules restrict any use of the information to criminally investigate or prosecute any alcohol or drug abuse patient.[facility] HospitalIn the event this information is protected by the Federal Confidentiality of Alcohol and Drug Abuse Patient Records regulations: The Federal rules restrict any use of the information to criminally investigate or prosecute any alcohol or drug abuse patient.[facility] HospitalIn the event this information is protected by the Federal Confidentiality of Alcohol and Drug Abuse Patient Records regulations: The Federal rules restrict any use of the information to criminally investigate or prosecute any alcohol or drug abuse patient.[facility] HospitalIn the event this information is protected by the Federal Confidentiality of Alcohol and Drug Abuse Patient Records regulations: The Federal rules restrict any use of the information to criminally investigate or prosecute any alcohol or drug abuse patient.[facility] HospitalIn the event this information is protected by the Federal Confidentiality of Alcohol and Drug Abuse Patient Records regulations: The Federal rules restrict any use of the information to criminally investigate or prosecute any alcohol or drug abuse patient.[facility] HospitalIn the event this information is protected by the Federal Confidentiality of Alcohol and Drug Abuse Patient Records regulations: The Federal rules restrict any use of the information to criminally investigate or prosecute any alcohol or drug abuse patient.[facility] HospitalIn the event this information is protected by the Federal Confidentiality of Alcohol and Drug Abuse Patient Records regulations: The Federal rules restrict any use of the information to criminally investigate or prosecute any alcohol or drug abuse patient.[facility] HospitalIn the event this information is protected by the Federal Confidentiality of Alcohol and Drug Abuse Patient Records regulations: The Federal rules restrict any use of the information to criminally investigate or prosecute any alcohol or drug abuse patient.[facility] HospitalIn the event this information is protected by the Federal Confidentiality of Alcohol and Drug Abuse Patient Records regulations: The Federal rules restrict any use of the information to criminally investigate or prosecute any alcohol or drug abuse patient.[facility] HospitalIn the event this information is protected by the Federal Confidentiality of Alcohol and Drug Abuse Patient Records regulations: The Federal rules restrict any use of the information to criminally investigate or prosecute any alcohol or drug abuse patient.[facility] HospitalIn the event this information is protected by the Federal Confidentiality of Alcohol and Drug Abuse Patient Records regulations: The Federal rules restrict any use of the information to criminally investigate or prosecute any alcohol or drug abuse patient.[facility] HospitalIn the event this information is protected by the Federal Confidentiality of Alcohol and Drug Abuse Patient Records regulations: The Federal rules restrict any use of the information to criminally investigate or prosecute any alcohol or drug abuse patient.[facility] HospitalIn the event this information is protected by the Federal Confidentiality of Alcohol and Drug Abuse Patient Records regulations: The Federal rules restrict any use of the information to criminally investigate or prosecute any alcohol or drug abuse patient.[facility] Reason for Visit (unrecogniz ed section and content) Reason Comments Physical Therapy Specialty Diagnoses / Procedures Referred By Contac t Referred To Contact [facility] Diagnoses Gait difficulty Complaints of leg weakness Procedures PT REHAB FOLLOW UP ORDER THERAPEUTIC EXERCISES RE, EA 15 MIN. Bradford Love, APRON WORKER.EDGE CUTTING MACHINE OPERATOR [address] [place] [address] [facility] [place] [address] [place] [address] Referral ID Status Reason Start Date Expiration Date Visits Requested Visits Authorized [id number] Authorized PCP Requested Referral Auto-Generate d Referral [...] EA 15 MIN. 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 Reason Comments Right Knee Pain Knee Replacement Specialty Diagnoses / Procedures Referred By Contac t Referred To Contact XR IMAGING Diagnoses Right knee pain, unspecified chronicity Procedures XR KNEE POST OP 3V AP/LAT/MERCHANT RIGHT RADIOLOGIC EXAMINATION KNEE 3 VIEWS Rigoberto Chase, APRON WORKER.FRENCH TRANSLATOR [address] [facility], [address] [place] [id number] Xr Imaging Referral ID Status Reason Start Date Expiration Date V isits Requested Visits Authorized [id number] Closed Auto-Generate d Referral 07/18/2021 08/16/2022 1 [...] INJECTION, ZOLEDRONIC ACID, 1 MG Raphael Perdomo, APRON WORKER.FRENCH TRANSLATOR [address] [place] [address] [facility] [address] [place] [address] Referral ID Status Reason Start Date Expiration Date V isits Requested Visits Authorized [id number] Authorized 11/17/2020 05/17/2022 3 3 Reason Comments PT Eval Patient Education Specialty Diagnoses / Procedures Referred By George t Referred To Contact Physical Therapy / PHYSICAL THERAPY Diagnoses Posterior tibial tendinitis, right leg INSUFFICIENCY OF RIGHT POSTERIOR TIBIAL TENDON (m76.821) Procedures PHYSICAL THERAPY EVALUATION HIGH COMPLEX 45 MINS NEW RS PT ORTH Salome Guerrier MD [address] [place] [address] Julianne Saab, PT [address] [place] [address] Referral ID Status Reason Start Date Expiration Date Visits Re quested Visits Authorized [id number] Closed 10/22/2021 04/27/2022 1 1 Specialty Diagnoses / Procedures Referred By George t Referred To Contact Physical Therapy / PHYSICAL THERAPY Diagnoses Posterior tibial tendinitis, right leg INSUFFICIENCY OF RIGHT POSTERIOR TIBIAL TENDON (m76.821) Procedures PHYSICAL THERAPY EVALUATION HIGH COMPLEX 45 MINS NEW RS PT ORTH Salome Guerrier MD [address] [place] [address] Julianne Saab, PT [address] [place] [address] Reason Comments Established Patient Reason Comments Yearly Exam With Mammogram Reason Comments Radiology Mammogram Specialty Diagnoses / Procedures Referred By George mckeon Referred To Contact BR IM[facility] Diagnoses Bilateral fibrocystic breast changes Personal history of breast cancer S/P bilateral breast lumpectomy Encounter for screening mammogram for malignant neoplasm of breast Procedures WILLIE SCREENING SCREENING MAMMOGRAPHY BI 2-VIEW BREAST INC Sheela Tejada PA-C [address] [place] [address] [facility] [address] [place] [address] Referral ID Status Reason Start Date Expiration Date V isits Requested Visits Authorized [id number] Closed Auto-Generate d Referral 11/29/2021 12/29/2022 1 1 Reason Comments Medical Clearance Received fax request for surgical clearance from [facility] - scanned into [facility] Reason Comments Patient Question Reason Comments F/U 6 months Reason Comments Patient Question Patient called and h ad question about inplants after radiation. 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 [facility] Reason Onset Date Comments Refill Request 12/04/2021 Reason Comments Pre-Op Exam Reason Comments Appointment Specialty Diagnoses / Procedures Referred By Contac t Referred To Contact Diagnoses Osteoporosis, unspecified Malignant neoplasm of unspecified site of left female breast Procedures INJECTION, ZOLEDRONIC ACID, 1 MG Raphael Perdomo, SHAHID.FRENCH TRANSLATOR [address] [place] [address] [facility] [address] [place] [address] Referral ID Status Reason Start Date Expiration Date V isits Requested Visits Authorized [id number] Authorized 11/17/2020 05/17/2022 4 4 Reason Onset [...] HEAD W & WO CONTRAST Gamaliel Reardon, SHAHID.FRENCH TRANSLATOR [address] [place] [address] [place] [address] Referral ID Status Reason Start Date Expiration Date V isits Requested Visits Authorized [id number] Closed Auto-Generate d Referral 02/18/2022 03/20/2022 1 1 Reason Comments 3 mo follow up Reason Comments results Reason Comments F/U 3 Month Referral ID Status Reason Start Date Expiration Date V isits Requested Visits Authorized [id number] Authorized 11/17/2020 08/24/2024 10 10 Reason Comments Refill Request Reason Comments Radiology CT Specialty Diagnoses / Procedures Referred By Contac t Referred To Contact CT IMAGING Diagnoses History of abdominal surgery Abdominal pain, chronic, generalized Procedures CT ABD/PEL WO IVCON CT ABD & PELVIS W/O CONTRAST Bradford Love, SHAHID.EDGE CUTTING MACHINE OPERATOR [address] [place] [address] [place] [id number] Referral ID Status Reason Start Date Expiration Date V isits Requested Visits Authorized [id number] Closed Auto-Generate d Referral 09/23/2023 10/23/2023 2 1 Reason Comments PT Eval Specialty Diagnoses / Procedures Referred By Contac t Referred To Contact [facility] Diagnoses Gait difficulty Complaints of leg weakness Procedures CONSULT TO PHYSICAL THERAPY PHYSICAL THERAPY EVALUATION HIGH COMPLEX 45 MINS Bradford Love, SHAHID.EDGE CUTTING MACHINE OPERATOR [address] [place] [address] [facility] [address] [address] Referral ID Status Reason Start Date Expiration Date V isits Requested Visits Authorized [id number] Closed Auto-Generate d Referral 04/28/2023 04/27/2024 1 1 Reason Comments F/U 3 Month Reason Comments Fall Has swelling in Left ankle, foot, bruising down leg, d/t hx pt has no feeling knee down Reason Comments Concerned for pt-see note Vomiting Shortness of Breath Referral ID Status Reason Start Date Expiration Date V isits Requested Visits Authorized [id number] Closed PCP Requested Referral Auto-Generated Referral 10/01/2023 01/26/2024 8 8 Reason Comments Results Reason Comments Medication Question Reason Comments PT Progress Note Specialty Diagnoses / Procedures Referred By Contac t Referred To Contact [facility] Diagnoses Gait difficulty Complaints of leg weakness Procedures PT REHAB FOLLOW UP ORDER THERAPEUTIC EXERCISES RE, EA 15 MIN. Bradford Love, APRON WORKER.EDGE CUTTING MACHINE OPERATOR [address] [place] [address] [facility] [address] [address] Specialty Diagnoses / Procedures Referred By Contac t Referred To Contact [facility] Diagnoses Complaints of leg weakness Gait difficulty Procedures PT REHAB FOLLOW UP ORDER THERAPEUTIC EXERCISES RE, EA 15 MIN. Bradford Love, APRON WORKER.EDGE CUTTING MACHINE OPERATOR [address] [place] [address] [address] Referral ID Status Reason Start Date Expiration Date Visits Requested Visits Authorized [id number] Authorized PCP Requested Referral Auto-Generate d Referral 11/27/2023 02/27/2024 8 8 Specialty Diagnoses / Procedures Referred By Contac t Referred To Contact [facility] Diagnoses Complaints of leg weakness Gait difficulty Procedures PT REHAB FOLLOW UP ORDER THERAPEUTIC EXERCISES RE, EA 15 MIN. Bradford Love, APRON WORKER.EDGE CUTTING MACHINE OPERATOR [address] [place] [address] [address] Reason Comments Medicare Wellness Exam Reason Comments [...] MAMMOGRAPHY COMPUTER-AIDED DETCJ BI Sheela Celeste PA-C [address] [place] [address] [facility] [address] [place] [phone] Referral ID Status Reason Start Date Expiration Date V isits Requested Visits Authorized [id number] Closed Auto-Generate d Referral 12/24/2022 01/23/2024 1 [...] NEW HIGH MDM 60 MINUTES Melani Zuniga, APRON WORKER.FRENCH TRANSLATOR [address] [place] [address] Phone: tel: fax: Referral ID Status Reason Start Date Expiration Date V isits Requested Visits Authorized [id number] Closed PCP Requested Referral 07/22/2024 07/21/2025 1 1 Reason Onset Date Comments Refill Request 08/17/2024 Reason Onset Date Comments Transition Of Care 09/01/2024 Reason Comments Hospital Follow Up Reason Onset Date Comments Population Health Navigation Outreach 09/22/2024 Healthy at Home [facility] Care Teams (unrecognized sec tion and content) Plodding Operator Relationship Specialty Start Date End Date Ruddy Cooper MD [address] [place], [place] [id number] PCP - General 02/16/02 Sid Storm MD, [address], [place] [id number] Physician Radiation Oncology 02/21/20 Vlad Velasquez MD [address] [place] [address] Home Care Physician Orthopedics 08/08/20 Rigoberto Chase APRN.FRENCH TRANSLATOR [address] [place] [address] [phone] Referring Orthopedics 08/08/20 Jaimee Bernard, PT [address] [place], [place] [id number] Disc Jockey Post Acute Care 08/08/20 Plodding Operator Relationship Specialty Start Date End Date Ruddy Cooper MD [address] [place], [place] [id number] PCP - General 02/16/02 Sid Storm MD, [address], [place] [id number] Physician Radiation Oncology 02/21/20 Vlad Velasquez MD [address] [place] [address] Home Care Physician Orthopedics 08/08/20 Rigoberto Chase APRN.FRENCH TRANSLATOR [address] [place] [address]31 Referring Orthopedics 08/08/20 Jaimee Bernard, PT [address] [place] [address] Disc Jockey Post Acute Care 08/08/20 Plodding Operator Relationship Specialty Start Date End Date Ruddy Cooper MD [address] [place] [address] PCP - General 02/16/02 Sid Storm MD, [address] [place] [address] Physician Radiation Oncology 02/21/20 Vlad Velasquez MD [address] [place] [address] Home Care Physician Orthopedics 08/08/20 Rigoberto Chase, SHAHID.FRENCH TRANSLATOR [address] [place] [address]02 Referring Orthopedics 08/08/20 Jaimee Bernard, PT [address] [place] [address] Disc Jockey Post Acute Care 08/08/20 Plodding Operator Relationship Specialty Start Date End Date Ruddy Cooper MD [address] [place] [address] PCP - General 02/16/02 Sid Storm MD, [address] [place] [address] Physician Radiation Oncology 02/21/20 Vlad Velasquez MD [address] [place] [address] Home Care Physician Orthopedics 08/08/20 Rigoberto Chase APRN.FRENCH TRANSLATOR [address] [place] [address] 10593 Referring Orthopedics 08/08/20 Jaimee Bernard, PT [address] [place] [address] Disc Jockey Post Acute Care 08/08/20 Plodding Operator Relationship Specialty Start Date End Date Ruddy Cooper MD [address] [place] [address] PCP - General 02/16/02 Sid Storm MD, [address] [place] [address] Physician Radiation Oncology 02/21/20 Vlad Velasquez MD [address] [place] [address] Home Care Physician Orthopedics 08/08/20 Rigoberto Chase APRN.[address] [address] Referring Orthopedics 08/08/20 Jaimee Bernard, PT [address] [place] [address] Disc Jockey Post Acute Care 08/08/20 Plodding Operator Relationship Specialty Start Date End Date Ruddy Cooper MD [address] [place] [address] PCP - General 02/16/02 Sid Storm MD, [address] [place] [address] Physician Radiation Oncology 02/21/20 Vlad Velasquez MD [address] [place] [address] Home Care Physician Orthopedics 08/08/20 Rigoberto Chase APRN.[address] [address] Referring Orthopedics 08/08/20 Jaimee Bernard, PT [address] [place] [address] Disc Jockey Post Acute Care 08/08/20 Plodding Operator Relationship Specialty Start Date End Date Ruddy Cooper MD [address] [place] [address] PCP - General 02/16/02 Sid Storm MD, [address] [place] [address] Physician Radiation Oncology 02/21/20 Vlad Velasquez MD [address] [place] [address] Home Care Physician Orthopedics 08/08/20 Rigoberto Chase, APRON WORKER.[address] [address] Referring Orthopedics 08/08/20 Jaimee Bernard, PT [address] [place] [address] Disc Jockey Post Acute Care 08/08/20 Plodding Operator Relationship Specialty Start Date End Date Ruddy Cooper MD [address] [place] [address] PCP - General 02/16/02 Sid Storm MD, [address] [place] [address] Physician Radiation Oncology 02/21/20 Vlad Velasquez MD [address] [facility] [place] [address] Home Care Physician Orthopedics 08/08/20 Rigoberto Chase, APRON WORKER.FRENCH TRANSLATOR [address] [place] [address] 27976 Referring Orthopedics 08/08/20 Jaimee Bernard, PT [address] [place] [address] Disc Jockey Post Acute Care 08/08/20 Plodding Operator Relationship Specialty Start Date End Date Ruddy Cooper MD [address] [place] [address] PCP - General 02/16/02 Sid Storm MD, [address] [place] [address] Physician Radiation Oncology 02/21/20 Vlad Velasquez MD [address] [place] [address] Home Care Physician Orthopedics 08/08/20 Rigoberto Chase, SHAHID.FRENCH TRANSLATOR [address] [place] [address] Referring Orthopedics 08/08/20 Jaimee Bernard, PT [address] [place] [address] Disc Jockey Post Acute Care 08/08/20 Plodding Operator Relationship Specialty Start Date End Date Ruddy Cooper MD [address] [place] [address] PCP - General 02/16/02 Sid Storm MD, [address] [place] [address] Physician Radiation Oncology 02/21/20 Vlad Velasquez MD [address] [place] [address] Home Care Physician Orthopedics 08/08/20 Rigoberto Chase, APRON WORKER.FRENCH TRANSLATOR [address] [place] [address] 98969 Referring Orthopedics 08/08/20 Jaimee Bernard, PT [address] [place] [address] Disc Jockey Post Acute Care 08/08/20 Plodding Operator Relationship Specialty Start Date End Date Ruddy Cooper MD [address] [place] [address] PCP - General 02/16/02 Sid Storm MD, [address] [facility] [place] [address] Physician Radiation Oncology 02/21/20 Vlad Velasquez MD [address] [place] [address] Home Care Physician Orthopedics 08/08/20 Rigoberto Chase, APRON WORKER.[address] [address] Referring Orthopedics 08/08/20 Jaimee Bernard, PT [address] [place] [address] Disc Jockey Post Acute Care 08/08/20 Plodding Operator Relationship Specialty Start Date End Date Ruddy Cooper MD [address] [place] [address] PCP - General 02/16/02 Sid Storm MD, [address] [facility] [place] [place] [address] Physician Radiation Oncology 02/21/20 Vlad Velasquez MD [address] [place] [address] Home Care Physician Orthopedics 08/08/20 Rigoberto Chase, APRON WORKER.[address] [address] Referring Orthopedics 08/08/20 Jaimee Bernard, PT [address] [place] [address] Disc Jockey Post Acute Care 08/08/20 Plodding Operator Relationship Specialty Start Date End Date Ruddy Cooper MD [address] [place] [address] PCP - General 02/16/02 Sid Storm MD, [address] [place] [address] Physician Radiation Oncology 02/21/20 Vlad Velasquez MD [address] [facility] [place] [address] Home Care Physician Orthopedics 08/08/20 Rigoberto Chsae APRN.[address] [address] Referring Orthopedics 08/08/20 Jaimee Bernard, PT [address] [place] [address] Disc Jockey Post Acute Care 08/08/20 Plodding Operator Relationship Specialty Start Date End Date Ruddy Cooper MD [address] [place] [address] PCP - General 02/16/02 Sid Storm MD, [address] [place] [address] Physician Radiation Oncology 02/21/20 Vlad Velasquez MD [address] [facility] [place] [address] Home Care Physician Orthopedics 08/08/20 Rigoberto Chase, SHAHID.[address] [address] Referring Orthopedics 08/08/20 Jaimee Bernard, PT [address] [place] [address] Disc Jockey Post Acute Care 08/08/20 Plodding Operator Relationship Specialty Start Date End Date Ruddy Cooper MD [address] [place] [address] PCP - General 02/16/02 Sid Storm MD, [address] [place] [address] Physician Radiation Oncology 02/21/20 Vlad Velasquez MD [address] [facility] [place] [address] Home Care Physician Orthopedics 08/08/20 Rigoberto Chase, SHAHID.[address] [address] Referring Orthopedics 08/08/20 Jaimee Bernard, PT [address] [place] [address] Disc Jockey Post Acute Care 08/08/20 Plodding Operator Relationship Specialty Start Date End Date Rudyd Cooper MD [address] [place] [address] PCP - General 02/16/02 Sid Storm MD, [address] [place] [address] Physician Radiation Oncology 02/21/20 Vlad Velasquez MD [address] [place] [address] Home Care Physician Orthopedics 08/08/20 Rigoberto Chase, SHAHID.[address] [address] Referring Orthopedics 08/08/20 Jaimee Bernard, PT [address] [place] [address] Disc Jockey Post Acute Care 08/08/20 Plodding Operator Relationship Specialty Start Date End Date Ruddy Cooper MD [address] [place] [address] PCP - General 02/16/02 Sid Storm MD, [address] [place] [address] Physician Radiation Oncology 02/21/20 Vlad Velasquez MD [address] [facility] [place] [address] Home Care Physician Orthopedics 08/08/20 Rigoberto Chase, SHAHID.FRENCH TRANSLATOR [address] [place] [address] Referring Orthopedics 08/08/20 Jaimee Bernard, PT [address] [place] [address] Disc Jockey Post Acute Care 08/08/20 Plodding Operator Relationship Specialty Start Date End Date Ruddy Cooper MD [address] [place] [address] PCP - General 02/16/02 Sid Storm MD, [address] [place] [address] Physician Radiation Oncology 02/21/20 Vlad Velasquez MD [address] [facility] [place] [address] Home Care Provider Orthopedics 08/08/20 Rigoberto Chase, APRON WORKER.FRENCH TRANSLATOR [address] [place] [address]345 Referring Orthopedics 08/08/20 Jaimee Bernard, PT [address] [place] [address] Disc Jockey Post Acute Care 08/08/20 Plodding Operator Relationship Specialty Start Date End Date Ruddy Cooper MD [address] [place] [address] PCP - General 02/16/02 Sid Storm MD, [address] [place] [address] Physician Radiation Oncology 02/21/20 Vlad Velasquez MD [address] [place] [address] Home Care Provider Orthopedics 08/08/20 Rigoberto Chase APRN.FRENCH TRANSLATOR [address] [place] [address] Referring Orthopedics 08/08/20 Jaimee Bernard, PT [address] [place] [address] Disc Jockey Post Acute Care 08/08/20 Plodding Operator Relationship Specialty Start Date End Date Ruddy Cooper MD [address] [place] [address] PCP - General 02/16/02 Sid Storm MD, [address] [place] [address] Physician Radiation Oncology 02/21/20 Vlad Velasquez MD [address] [facility] [place] [address] Home Care Provider Orthopedics 08/08/20 Rigoberto Chase, APRON WORKER.FRENCH TRANSLATOR [address] [place] [address] 6[address]11 Referring Orthopedics 08/08/20 Jaimee Bernard, PT [address] [place] [address] Disc Jockey Post Acute Care 08/08/20 Plodding Operator Relationship Specialty Start Date End Date Ruddy Cooper MD [address] [place] [address] PCP - General 02/16/02 Sid Storm MD, [address] [place] [address] Physician Radiation Oncology 02/21/20 Vlad Velasquez MD [address] [place] [address] Home Care Provider Orthopedics 08/08/20 Rigoberto Chase, APRON WORKER.FRENCH TRANSLATOR [address] [place] [address]309 Referring Orthopedics 08/08/20 Jaimee Bernard, PT [address] [place], [place] 7692431 Disc Jockey Post Acute Care 08/08/20 Plodding Operator Relationship Specialty Start Date End Date Ruddy Cooper MD [address] [place] [address] PCP - General 02/16/02 Sid Storm MD, [address] [place] [address] Physician Radiation Oncology 02/21/20 Vlad Velasquez MD [address] [place] [address] Home Care Provider Orthopedics 08/08/20 Rigoberto Chase APRN.[address] [address] Referring Orthopedics 08/08/20 Jaimee Bernard, PT [address] [place] [address] Disc Jockey Post Acute Care 08/08/20 Plodding Operator Relationship Specialty Start Date End Date Ruddy Cooper MD [address] [place] [address] PCP - General 02/16/02 Sid Storm MD, [address] [place] [address] Physician Radiation Oncology 02/21/20 Vlad Velasquez MD [address] [place] [address] Home Care Provider Orthopedics 08/08/20 Rigoberto Chase, SHAHID.[address] [address] Referring Orthopedics 08/08/20 Jaimee Bernard, PT [address] [place], [place] [id number] Disc Jockey Post Acute Care 08/08/20 Plodding Operator Relationship Specialty Start Date End Date Ruddy Cooper MD [address] [place] [address] PCP - General 02/16/02 Sid Storm MD, [address] [place] [address] Physician Radiation Oncology 02/21/20 Vlad Velasquez MD [address] [place] [address] Home Care Provider Orthopedics 08/08/20 Rigoberto Chase, APRON WORKER.FRENCH TRANSLATOR [address] [place] [address]77 Referring Orthopedics 08/08/20 Jaimee Bernard, PT [address] [place] [address] Disc Jockey Post Acute Care 08/08/20 Plodding Operator Relationship Specialty Start Date End Date Ruddy Cooper MD [address] [place] [address] PCP - General 02/16/02 Sid Storm MD, [address] [place] [address] Physician Radiation Oncology 02/21/20 Vlad Velasquez MD [address] [place] [address] Home Care Provider Orthopedics 08/08/20 Rigoberto Chase, APRON WORKER.FRENCH TRANSLATOR [address] [place] [address] 20522 Referring Orthopedics 08/08/20 Jaimee Bernard, PT [address] [place] [address] Disc Jockey Post Acute Care 08/08/20 Plodding Operator Relationship Specialty Start Date End Date Ruddy Cooper MD [address] [place] [address] PCP - General 02/16/02 Sid Storm MD, [address] [facility] [place] [address] Physician Radiation Oncology 02/21/20 Vlad Velasquez MD [address] [place] [address] Home Care Provider Orthopedics 08/08/20 Rigoberto Chase APRN.FRENCH TRANSLATOR [address] [place] [address] 27181 Referring Orthopedics 08/08/20 Jaimee Bernard, PT [address] [place] [address] Disc Jockey Post Acute Care 08/08/20 Plodding Operator Relationship Specialty Start Date End Date Ruddy Cooper MD [address] [place] [address] PCP - General 02/16/02 Sid Storm MD, [address] [place] [address] Physician Radiation Oncology 02/21/20 Vlad Velasquez MD [address] [place] [address] Home Care Provider Orthopedics 08/08/20 Rigoberto Chase APRN.[address] [address] Referring Orthopedics 08/08/20 Jaimee Bernard, PT [address] [place] [address] Disc Jockey Post Acute Care 08/08/20 Plodding Operator Relationship Specialty Start Date End Date Ruddy Cooper MD [address] [place] [address] PCP - General 02/16/02 Sid Storm MD, [address] [facility] [place] [address] Physician Radiation Oncology 02/21/20 Vlad Velasquez MD [address] [facility] [place] [address] Home Care Provider Orthopedics 08/08/20 Rigoberto Chase, APRON WORKER.[address] [address] Referring Orthopedics 08/08/20 Jaimee Bernard, PT [address] [place] [address] Disc Jockey Post Acute Care 08/08/20 Plodding Operator Relationship Specialty Start Date End Date Ruddy Cooper MD [address] [place] [address] PCP - General 02/16/02 Sid Storm MD, [address] [place] [address] Physician Radiation Oncology 02/21/20 Vlad Velasquez MD [address] [facility] [place] [address] Home Care Provider Orthopedics 08/08/20 Rigoberto Chase, APRON WORKER.[address] [address] Referring Orthopedics 08/08/20 Jaimee Bernard, PT [address] [place] [address] Disc Jockey Post Acute Care 08/08/20 Plodding Operator Relationship Specialty Start Date End Date Ruddy Cooper MD [address] [place] [address] PCP - General 02/16/02 Sid Storm MD, [address] [place] [address] Physician Radiation Oncology 02/21/20 Vlad Velasquez MD [address] [place] [address] Home Care Provider Orthopedics 08/08/20 Rigoberto Chase APRN.FRENCH TRANSLATOR [address] [place] [address]60 Referring Orthopedics 08/08/20 Jaimee Bernard, PT [address] [place] [address] Disc Jockey Post Acute Care 08/08/20 Plodding Operator Relationship Specialty Start Date End Date Ruddy Cooper MD [address] [place] [address] PCP - General 02/16/02 Sid Storm MD, [address] [place] [address] Physician Radiation Oncology 02/21/20 Vlad Velasquez MD [address] [facility] [place] [address] Home Care Provider Orthopedics 08/08/20 Rigoberto Chase APRN.[facility] [address] [place] [address] 41591 Referring Orthopedics 08/08/20 Jaimee Bernard, PT [address] [place] [address] Disc Jockey Post Acute Care 08/08/20 Plodding Operator Relationship Specialty Start Date End Date Ruddy Cooper MD [address] [place] [address] PCP - General 02/16/02 Sid Storm MD, [address] [place] [address] Physician Radiation Oncology 02/21/20 Vlad Velasquez MD [address] [place] [address] Home Care Provider Orthopedics 08/08/20 Rigoberto Chase APRN.FRENCH TRANSLATOR [address] [place] [address]97 Referring Orthopedics 08/08/20 Plodding Operator Relationship Specialty Start Date End Date Ruddy Cooper MD [facility] [place] [address] PCP - General 02/16/02 Sid Storm MD, [address] [place] [address] Physician Radiation Oncology 02/21/20 Vlad Velasquez MD [address] [facility] [place] [address] Home Care Provider Orthopedics 08/08/20 Rigoberto Chase APRN.FRENCH TRANSLATOR [address] [place] [address] 9[address]54 Referring Orthopedics 08/08/20 Plodding Operator Relationship Specialty Start Date End Date Ruddy Cooper MD [address] [place] [address] PCP - General 02/16/02 Sid Storm MD, MD [address] [place] [address] Physician Radiation Oncology 02/21/20 Vlad Velasquez MD [address] [facility] [place] [address] Home Care Provider Orthopedics 08/08/20 Rigoberto Chase APRN.FRENCH TRANSLATOR [address] [place] [address] 38993 Referring Orthopedics 08/08/20 Plodding Operator Relationship Specialty Start Date End Date Ruddy Cooper MD [address] [place], [place] 287551 PCP - General 02/16/02 Sid Storm MD, [address] [place], [place] 977461 Physician Radiation Oncology 02/21/20 Vlad Velasquez MD [address] [place] [id number] Home Care Provider Orthopedics 08/08/20 Rigoberto Chase APRON WORKER.FRENCH TRANSLATOR [address] [place] [address] 17136 Referring Orthopedics 08/08/20 Plodding Operator Relationship Specialty Start Date End Date Ruddy Cooper MD [address] [place], [place] 041651 PCP - General 02/16/02 Sid Storm MD, [address] [place], [place] 036852 [phone] Physician Radiation Oncology 02/21/20 Vlad Velasquez MD [address] [place] [address] Home Care Provider Orthopedics 08/08/20 Rigoberto Chase APRN.FRENCH TRANSLATOR [address] [place] [address] 30819 Referring Orthopedics 08/08/20 Plodding Operator Relationship Specialty Start Date End Date Ruddy Cooper MD [address] [place] [address] PCP - General 02/16/02 Sid Storm MD, [address] [place] [address] Physician Radiation Oncology 02/21/20 Vlad Velasquez MD [address] [place] [address] Home Care Provider Orthopedics 08/08/20 Rigoberto Chase APRN.FRENCH TRANSLATOR [address] [place] [address] 46565 Referring Orthopedics 08/08/20 Plodding Operator Relationship Specialty Start Date End Date Ruddy Cooper MD [address] [place] [address] PCP - General 02/16/02 Sid Storm MD, [address] [place] [address] Physician Radiation Oncology 02/21/20 Vlad Velasquez MD [address] [place] [address] Home Care Provider Orthopedics 08/08/20 Rigoberto Chase APRN.FRENCH TRANSLATOR [address] [place] [address] [phone] Referring Orthopedics 08/08/20 Jaimee Bernard, PT [address] [place] [address] Disc Jockey Post Acute Care 08/08/20 11/25/22 Plodding Operator Relationship Specialty Start Date End Date Ruddy Cooper MD [address] [place] [address] PCP - General 02/16/02 Sid Storm MD, [address] [place] [address] Physician Radiation Oncology 02/21/20 Vlad Velasquez MD [address] [facility] [place] [address] Home Care Provider Orthopedics 08/08/20 Rigoberto Chase APRN.FRENCH TRANSLATOR [address] [place] [address]30 Referring Orthopedics 08/08/20 Jaimee Bernard, PT [address] [place] [address] Disc Jockey Post Acute Care 08/08/20 11/25/22 Plodding Operator Relationship Specialty Start Date End Date Ruddy Cooper MD [address] [place] [address] PCP - General 02/16/02 Sid Storm MD, [address] [place] [address] Physician Radiation Oncology 02/21/20 Vlad Velasquez MD [address] [place] [address] Home Care Provider Orthopedics 08/08/20 Rigoberto Chase APRN.FRENCH TRANSLATOR [address] [place] [address] 13117 Referring Orthopedics 08/08/20 Plodding Operator Relationship Specialty Start Date End Date Ruddy Cooper MD [address] [place] [address] PCP - General 02/16/02 Sid Storm MD, [address] [place] [address] Physician Radiation Oncology 02/21/20 Vlad Velasquez MD [address] [place] [address] Home Care Provider Orthopedics 08/08/20 Rigoberto Chase APRN.FRENCH TRANSLATOR [address] [place] [address] 42034 Referring Orthopedics 08/08/20 Plodding Operator Relationship Specialty Start Date End Date Ruddy Cooper MD [address] [place] [address] PCP - General 02/16/02 Sid Storm MD, [address] [place] [address] Physician Radiation Oncology 02/21/20 Vlad Velasquez MD [address] [place] [address] Home Care Provider Orthopedics 08/08/20 Rigoberto Chase APRN.FRENCH TRANSLATOR [address] [place] [address] [phone] Referring Orthopedics 08/08/20 Plodding Operator Relationship Specialty Start Date End Date Ruddy Cooper MD [address] [place], [place] 409781 PCP - General 02/16/02 Sid Storm MD [address] [facility] [place] [place] [address] Physician Radiation Oncology 02/21/20 Vlad Velasquez MD [address] [place] [address] Home Care Provider Orthopedics 08/08/20 Rigoberto Chase, APRON WORKER.FRENCH TRANSLATOR [address] [place] [address] 72486 Referring Orthopedics 08/08/20 Plodding Operator Relationship Specialty Start Date End Date Ruddy Cooper MD [address] [place] [address] PCP - General 02/16/02 Sid Storm MD [address] [place] [address] Physician Radiation Oncology 02/21/20 Vlad Velasquez MD [address] [place] [address] Home Care Provider Orthopedics 08/08/20 Rigoberto Chase, APRON WORKER.FRENCH TRANSLATOR [address] [place] [address] 81092 Referring Orthopedics 08/08/20 Plodding Operator Relationship Specialty Start Date End Date Ruddy Cooper MD [address] [place] [address] PCP - General 02/16/02 Sid Storm MD [address] [facility] [place] [address] Physician Radiation Oncology 02/21/20 Vlad Velasquez MD [address] [place] [address] Home Care Provider Orthopedics 08/08/20 Rigoberto Chase APRN.FRENCH TRANSLATOR [address] [place] [address] 30020 Referring Orthopedics 08/08/20 Plodding Operator Relationship Specialty Start Date End Date Ruddy Cooper MD [address] [place] [address] PCP - General 02/16/02 Sid Storm MD [address] [place] [address] Physician Radiation Oncology 02/21/20 Vlad Velasquez MD [address] [place] [address] Home Care Provider Orthopedics 08/08/20 Rigoberto Chase APRON WORKER.FRENCH TRANSLATOR [address] [place] [address] 10075 Referring Orthopedics 08/08/20 Plodding Operator Relationship Specialty Start Date End Date Ruddy Cooper MD [facility] [place] [address] PCP - General 02/16/02 Sid Storm MD [address] [place] [address] Physician Radiation Oncology 02/21/20 Vlad Velasquez MD [address] [place] [address] Home Care Provider Orthopedics 08/08/20 Rigoberto Chase APRN.FRENCH TRANSLATOR [address] [place] [address] 71834 Referring Orthopedics 08/08/20 Plodding Operator Relationship Specialty Start Date End Date Ruddy Cooper MD [address] [place] [address] PCP - General 02/16/02 Sid Storm MD [address] [place] [address] Physician Radiation Oncology 02/21/20 Vlad Velasquez MD [address] [place] [address] Home Care Provider Orthopedics 08/08/20 Rigoberto Chase APRN.FRENCH TRANSLATOR [address] [place] [address] 65693 Referring Orthopedics 08/08/20 Plodding Operator Relationship Specialty Start Date End Date Ruddy Cooper MD [address] [place] [address] PCP - General 02/16/02 Sid Storm MD [address] [place] [address] Physician Radiation Oncology 02/21/20 Vlad Velasquez MD [address] [place] [address] Home Care Provider Orthopedics 08/08/20 Rigoberto Chase APRN.FRENCH TRANSLATOR [address] [place] [address] 50689 Referring Orthopedics 08/08/20 Plodding Operator Relationship Specialty Start Date End Date Ruddy Cooper MD [address] [place] [address] PCP - General 02/16/02 Sid Storm MD [address] [place] [address] Physician Radiation Oncology 02/21/20 Vlad Velasquez MD [address] [place] [address] Home Care Provider Orthopedics 08/08/20 Rigoberto Chase, APRON WORKER.FRENCH TRANSLATOR [address] [place] [address] 86826 Referring Orthopedics 08/08/20 Plodding Operator Relationship Specialty Start Date End Date Ruddy Cooper MD [address] [place] [address] PCP - General 02/16/02 Sid Storm MD [address] [place] [address] Physician Radiation Oncology 02/21/20 Vlad Velasquez MD [address] [place] [address] Home Care Provider Orthopedics 08/08/20 Rigoberto Chase, APRON WORKER.FRENCH TRANSLATOR [address] [place] [address] 15121 Referring Orthopedics 08/08/20 Plodding Operator Relationship Specialty Start Date End Date Ruddy Cooper MD [address] [place] [address] PCP - General 02/16/02 Sid Storm MD [address] [place] [address] Physician Radiation Oncology 02/21/20 Vlad Velasquez MD [address] [place] [address] Home Care Provider Orthopedics 08/08/20 Rigoberto Chase, APRON WORKER.FRENCH TRANSLATOR [address] [place] [address] 87538 Referring Orthopedics 08/08/20 Plodding Operator Relationship Specialty Start Date End Date Ruddy Cooper MD [address] [place] [address] PCP - General 02/16/02 Sid Storm MD [address] [place] [address] Physician Radiation Oncology 02/21/20 Vlad Velasquez MD [address] [place] [address] Home Care Provider Orthopedics 08/08/20 Rigoberto Chase, APRON WORKER.FRENCH TRANSLATOR [address] [place] [address] 29121 Referring Orthopedics 08/08/20 Plodding Operator Relationship Specialty Start Date End Date Ruddy Cooper MD [address] [place] [address] PCP - General 02/16/02 Sid Storm MD [address] [place] [address] Physician Radiation Oncology 02/21/20 Vlad Velasquez MD [address] [place] [address] Home Care Provider Orthopedics 08/08/20 Rigoberto Chase APRN.FRENCH TRANSLATOR [address] [place] [address] 69555 Referring Orthopedics 08/08/20 Plodding Operator Relationship Specialty Start Date End Date Ruddy Cooper MD [address] [place] [address] PCP - General 02/16/02 Sid Storm MD [address] [place], [place] 509701 Physician Radiation Oncology 02/21/20 Vlad Velasquez MD [address] [place] [address] Home Care Provider Orthopedics 08/08/20 Rigoberto Chase, APRON WORKER.FRENCH TRANSLATOR [address] [place] [address] 22472 Referring Orthopedics 08/08/20 Plodding Operator Relationship Specialty Start Date End Date Ruddy Cooper MD [address] [place] [address] PCP - General 02/16/02 Sid Storm MD [address] [place] [address] Physician Radiation Oncology 02/21/20 Vlad Velasquez MD [address] [place] [address] Home Care Provider Orthopedics 08/08/20 Rigoberto Chase, APRON WORKER.FRENCH TRANSLATOR [address] [place] [address] 11689 Referring Orthopedics 08/08/20 Plodding Operator Relationship Specialty Start Date End Date Ruddy Cooper MD [address] [place] [address] PCP - General 02/16/02 Sid Storm MD [address] [place] [address] Physician Radiation Oncology 02/21/20 Vlad Velasquez MD [address] [place] [address] Home Care Provider Orthopedics 08/08/20 Rigoberto Chase, APRON WORKER.FRENCH TRANSLATOR [address] [place] [address] 00329 Referring Orthopedics 08/08/20 Plodding Operator Relationship Specialty Start Date End Date Ruddy Cooper MD [address] [place] [address] PCP - General 02/16/02 Sid Storm MD [address] [place] [address] Physician Radiation Oncology 02/21/20 Vlad Velasquez MD [address] [place] [address] Home Care Provider Orthopedics 08/08/20 Rigoberto Chase APRON WORKER.FRENCH TRANSLATOR [address] [place] [address] 84389 Referring Orthopedics 08/08/20 Plodding Operator Relationship Specialty Start Date End Date Ruddy Cooper MD [address] [place], [place] 026671 PCP - General 02/16/02 Sid Storm MD [address] [place] [address] Physician Radiation Oncology 02/21/20 Vlad Velasquez MD [address] [place] [address] Home Care Provider Orthopedics 08/08/20 Rigoberto Chase, APRON WORKER.FRENCH TRANSLATOR [address] [place] [address] 87019 Referring Orthopedics 08/08/20 Plodding Operator Relationship Specialty Start Date End Date Ruddy Cooper MD [address] [place] [address] PCP - General 02/16/02 Sid Storm MD [address] [place], [place] 862992 [phone] Physician Radiation Oncology 02/21/20 Vlad Velasquez MD [address] [place] [address] Home Care Provider Orthopedics 08/08/20 Rigoberto Chase, APRON WORKER.FRENCH TRANSLATOR [address] [place] [address] 19279 Referring Orthopedics 08/08/20 Plodding Operator Relationship Specialty Start Date End Date Ruddy Cooper MD [address] [place] [address] PCP - General 02/16/02 Sid Storm MD [address] [place] [address] Physician Radiation Oncology 02/21/20 Vlad Velasquez MD [address] [place] [address] Home Care Provider Orthopedics 08/08/20 Rigoberto Chase, SHAHID.FRENCH TRANSLATOR [address] [place] [address] 18534 Referring Orthopedics 08/08/20 Plodding Operator Relationship Specialty Start Date End Date Ruddy Cooper MD [address] [place] [address] PCP - General 02/16/02 Sid Storm MD [address] [place] [address] Physician Radiation Oncology 02/21/20 Vlad Velasquez MD [address] [place] [address] Home Care Provider Orthopedics 08/08/20 Rigoberto Chase, APRON WORKER.FRENCH TRANSLATOR [address] [place] [address] 88177 Referring Orthopedics 08/08/20 Plodding Operator Relationship Specialty Start Date End Date Ruddy Cooper MD [address] [place] [address] PCP - General 02/16/02 Sid Storm MD [address] [place] [address] Physician Radiation Oncology 02/21/20 Vlad Velasquez MD [address] [place] [address] Home Care Provider Orthopedics 08/08/20 Rigoberto Chase APRN.FRENCH TRANSLATOR [address] [place] [address] 76036 Referring Orthopedics 08/08/20 Plodding Operator Relationship Specialty Start Date End Date Ruddy Cooper MD [address] [place], [place] 936851 PCP - General 02/16/02 Sid Storm MD [address] [place], [place] 460346 [phone] Physician Radiation Oncology 02/21/20 Vlad Velasquez MD [address] [place] [address] Home Care Provider Orthopedics 08/08/20 Rigoberto Chase APRN.FRENCH TRANSLATOR [address] [place] [address] 26827 Referring Orthopedics 08/08/20 Plodding Operator Relationship Specialty Start Date End Date Ruddy Cooper MD [address] [place] [address] PCP - General 02/16/02 Sid Storm MD [address] [place] [address] Physician Radiation Oncology 02/21/20 Vlad Velasquez MD [address] [facility] [place] [place] [address] Home Care Provider Orthopedics 08/08/20 Rigoberto Chase APRN.FRENCH TRANSLATOR [address] [place] [address] 98099 Referring Orthopedics 08/08/20 Plodding Operator Relationship Specialty Start Date End Date Ruddy Cooper MD [address] [place] [address] PCP - General 02/16/02 Sid Storm MD [address] [place] [address] Physician Radiation Oncology 02/21/20 Vlad Velasquez MD [address] [place] [address] Home Care Provider Orthopedics 08/08/20 Rigoberto Chase APRN.FRENCH TRANSLATOR [address] [place] [address] 14693 Referring Orthopedics 08/08/20 Plodding Operator Relationship Specialty Start Date End Date Ruddy Cooper MD [address] [place] [address] PCP - General 02/16/02 Sid Storm MD [address] [place] [address] Physician Radiation Oncology 02/21/20 Vlad Velasquez MD [address] [place] [address] Home Care Provider Orthopedics 08/08/20 Rigoberto Chase APRN.FRENCH TRANSLATOR [address] [place] [address] 41349 Referring Orthopedics 08/08/20 Plodding Operator Relationship Specialty Start Date End Date Ruddy Cooper MD [address] [place] [address] PCP - General 02/16/02 Sid Storm MD [address] [facility] [place] [address] Physician Radiation Oncology 02/21/20 Vlad Velasquez MD [address] [place] [address] Home Care Provider Orthopedics 08/08/20 Rigoberto Chase, APRON WORKER.FRENCH TRANSLATOR [address] [place] [address] 87237 Referring Orthopedics 08/08/20 Plodding Operator Relationship Specialty Start Date End Date Ruddy Cooper MD [address] [place] [address] PCP - General 02/16/02 Sid Storm MD [address] [place] [address] Physician Radiation Oncology 02/21/20 Vlad Velasquez MD [address] [place] [address] Home Care Provider Orthopedics 08/08/20 Rigoberto Chase, APRON WORKER.FRENCH TRANSLATOR [address] [place] [address] 91711 Referring Orthopedics 08/08/20 Plodding Operator Relationship Specialty Start Date End Date Ruddy Cooper MD [address] [place] [address] PCP - General 02/16/02 Sid Storm MD [address] [facility] [place] [address] Physician Radiation Oncology 02/21/20 Vlad Velasquez MD [address] [place] [address] Home Care Provider Orthopedics 08/08/20 Rigoberto Chase APRN.FRENCH TRANSLATOR [address] [place] [address] 00129 Referring Orthopedics 08/08/20 Plodding Operator Relationship Specialty Start Date End Date Ruddy Cooper MD [address] [place] [address] PCP - General 02/16/02 Sid Storm MD [address] [place] [address] Physician Radiation Oncology 02/21/20 Vlad Velasquez MD [address] [place] [address] Home Care Provider Orthopedics 08/08/20 Rigoberto Chase APRON WORKER.FRENCH TRANSLATOR [address] [place] [address] 33040 Referring Orthopedics 08/08/20 Plodding Operator Relationship Specialty Start Date End Date Ruddy Cooper MD [facility] [place] [address] PCP - General 02/16/02 Sid Storm MD [address] [place] [address] Physician Radiation Oncology 02/21/20 Vlad Velasquez MD [address] [place] [address] Home Care Provider Orthopedics 08/08/20 Rigoberto Chase APRN.FRENCH TRANSLATOR [address] [place] [address] 34425 Referring Orthopedics 08/08/20 Plodding Operator Relationship Specialty Start Date End Date Ruddy Cooper MD [address] [place] [address] PCP - General 02/16/02 Sid Storm MD [address] [place] [address] Physician Radiation Oncology 02/21/20 Vlad Velasquez MD [address] [place] [address] Home Care Provider Orthopedics 08/08/20 Rigoberto Chase APRN.FRENCH TRANSLATOR [address] [place] [address] 43803 Referring Orthopedics 08/08/20 Plodding Operator Relationship Specialty Start Date End Date Ruddy Cooper MD [address] [place] [address] PCP - General 02/16/02 Sid Storm MD [address] [place] [address] Physician Radiation Oncology 02/21/20 Vlad Velasquez MD [address] [place] [address] Home Care Provider Orthopedics 08/08/20 Rigoberto Chase APRN.FRENCH TRANSLATOR [address] [place] [address] 89540 Referring Orthopedics 08/08/20 Plodding Operator Relationship Specialty Start Date End Date Ruddy Cooper MD [address] [place] [address] PCP - General 02/16/02 Sid Storm MD [address] [place] [address] Physician Radiation Oncology 02/21/20 Vlad Velasquez MD [address] [place] [address] Home Care Provider Orthopedics 08/08/20 Rigoberto Chase, APRON WORKER.FRENCH TRANSLATOR [address] [place] [address] 73756 Referring Orthopedics 08/08/20 Plodding Operator Relationship Specialty Start Date End Date Ruddy Cooper MD [address] [place] [address] PCP - General 02/16/02 Sid Storm MD [address] [place] [address] Physician Radiation Oncology 02/21/20 Vlad Velasquez MD [address] [place] [address] Home Care Provider Orthopedics 08/08/20 Rigoberto Chase, APRON WORKER.FRENCH TRANSLATOR [address] [place] [address] 21628 Referring Orthopedics 08/08/20 Plodding Operator Relationship Specialty Start Date End Date Ruddy Cooper MD [address] [place] [address] PCP - General 02/16/02 Sid Storm MD [address] [place] [address] Physician Radiation Oncology 02/21/20 Vlad Velasquez MD [address] [place] [address] Home Care Provider Orthopedics 08/08/20 Rigoberto Chase APRN.FRENCH TRANSLATOR [address] [place] [address] 78926 Referring Orthopedics 08/08/20 Jaimee Bernard, PT [address] [place] [address] Disc Jockey Post Acute Care 08/08/20 11/25/22 Plodding Operator Relationship Specialty Start Date End Date Ruddy Cooper MD [address] [place] [address] PCP - General 02/16/02 Sid Storm MD [address] [place], [place] 116241 Physician Radiation Oncology 02/21/20 Vlad Velasquez MD [address] [place] [address] Home Care Provider Orthopedics 08/08/20 Rigoberto Chase APRN.FRENCH TRANSLATOR [address] [place] [address] 35577 Referring Orthopedics 08/08/20 Jaimee Bernard, PT [address] [place], [place] [id number] Disc Jockey Post Acute Care 08/08/20 11/25/22 Plodding Operator Relationship Specialty Start Date End Date Ruddy Cooper MD [address] [place], [place] 136451 PCP - General 02/16/02 Sid Storm MD [address] [place] [address] Physician Radiation Oncology 02/21/20 Plodding Operator Relationship Specialty Start Date End Date Ruddy Cooper MD [address] [place] [address] PCP - General 02/16/02 Sid Storm MD [address] [place] [address] Physician Radiation Oncology 02/21/20 Vlad Velasquez MD [address] [facility] [place] [address] Home Care Provider Orthopedics 08/08/20 Rigoberto Chase, APRON WORKER.FRENCH TRANSLATOR [address] [place] [address] 18113 Referring Orthopedics 08/08/20 Plodding Operator Relationship Specialty Start Date End Date Ruddy Cooper MD [address] [place] [address] PCP - General 02/16/02 Sid Storm MD [address] [place] [address] Physician Radiation Oncology 02/21/20 Vlad Velasquez MD [address] [place] [address] Home Care Provider Orthopedics 08/08/20 Rigoberto Chase APRN.FRENCH TRANSLATOR [address] [place] [address] 13789 Referring Orthopedics 08/08/20 Plodding Operator Relationship Specialty Start Date End Date Ruddy Cooper MD [address] [place] [address] PCP - General 02/16/02 Sid Storm MD [address] [place] [address] Physician Radiation Oncology 02/21/20 Vlad Velasquez MD [address] [place] [address] Home Care Provider Orthopedics 08/08/20 Rigoberto Chase APRN.FRENCH TRANSLATOR [address] [place] [address] 72908 Referring Orthopedics 08/08/20 Plodding Operator Relationship Specialty Start Date End Date Ruddy Cooper MD [address] [place] [address] PCP - General 02/16/02 Sid Storm MD [address] [place] [address] Physician Radiation Oncology 02/21/20 Vlad Velasquez MD [address] [place] [address] Home Care Provider Orthopedics 08/08/20 Rigoberto Chase APRN.FRENCH TRANSLATOR [address] [place] [address] 93988 Referring Orthopedics 08/08/20 Plodding Operator Relationship Specialty Start Date End Date Ruddy Cooper MD [address] [place], [place] 012121 PCP - General 02/16/02 Sid Storm MD [address] [place], [place] 085981 Physician Radiation Oncology 02/21/20 Vlad Velasquez MD [address] [place] [address] Home Care Provider Orthopedics 08/08/20 Rigoberto Chaes, APRON WORKER.FRENCH TRANSLATOR [address] [place] [address] [phone] Referring Orthopedics 08/08/20 Bradford Love APRON WORKER.EDGE CUTTING MACHINE OPERATOR [address] [place], [place] 828101 International Marketing Coordinator Internal Medicine 04/05/24 Elma Fuchs APRON WORKER.FRENCH TRANSLATOR [address] [place] [address] International Marketing Coordinator Internal Medicine 04/05/24 Plodding Operator Relationship Specialty Start Date End Date Ruddy Cooper MD [address] [place] [address] PCP - General 02/16/02 Sid Storm MD [address] [place] [address] Physician Radiation Oncology 02/21/20 Vlad Velasquez MD [address] [place] [address] Home Care Provider Orthopedics 08/08/20 Rigoberto Chase, APRON WORKER.FRENCH TRANSLATOR [address] [place] [address], [address] [place] [address] [phone] Referring Orthopedics 08/08/20 Bradford Love APRON WORKER.EDGE CUTTING MACHINE OPERATOR [address] [place] [address] International Marketing Coordinator Internal Medicine 04/05/24 Elma Fuchs APRON WORKER.FRENCH TRANSLATOR [address] [place], [place] 401361 International Marketing Coordinator Internal Medicine 04/05/24 Plodding Operator Relationship Specialty Start Date End Date Ruddy Cooper MD [address] [place], [place] 331391 PCP - General 02/16/02 Sid Storm MD [address] [place], [place] 052191 Physician Radiation Oncology 02/21/20 Vlad Velasquez MD [address] [place] [address] Home Care Provider Orthopedics 08/08/20 Rigoberto Chase APRN.FRENCH TRANSLATOR [address] [address] Referring Orthopedics 08/08/20 Bradford Love APRN.EDGE CUTTING MACHINE OPERATOR [address] [place] [address] International Marketing Coordinator Internal Medicine 04/05/24 Elma Fuchs APRON WORKER.FRENCH TRANSLATOR [address] [place], [place] 486851 International Marketing Coordinator Internal Medicine 04/05/24 Plodding Operator Relationship Specialty Start Date End Date Ruddy Cooper MD [address] [place] [address] PCP - General 02/16/02 Sid Storm MD [address] [place] [address] Physician Radiation Oncology 02/21/20 Vlad Velasquez MD [address] [place] [address] Home Care Provider Orthopedics 08/08/20 Rigoberto Chase APRON WORKER.FRENCH TRANSLATOR [address] [place] [address] [phone] Referring Orthopedics 08/08/20 Bradford Love APRON WORKER.EDGE CUTTING MACHINE OPERATOR [address] [place] [phone] International Marketing Coordinator Internal Medicine 04/05/24 Elma Fuchs APRON WORKER.FRENCH TRANSLATOR [address] [place] [address] International Marketing Coordinator Internal Medicine 04/05/24 Plodding Operator Relationship Specialty Start Date End Date Ruddy Cooper MD [address] [place] [address] PCP - General 02/16/02 Sid Storm MD [address] [place] [address] Physician Radiation Oncology 02/21/20 Vlad Velasquez MD [address] [place] [address] Home Care Provider Orthopedics 08/08/20 Rigoberto Chase, APRON WORKER.FRENCH TRANSLATOR [address] [place] [address], [address] [place] [address] [phone] Referring Orthopedics 08/08/20 Bradford Love APRON WORKER.EDGE CUTTING MACHINE OPERATOR [address] [place] [address] International Marketing Coordinator Internal Medicine 04/05/24 Elma Fuchs APRON WORKER.FRENCH TRANSLATOR [address] [place] [address] International Marketing Coordinator Internal Medicine 04/05/24 Plodding Operator Relationship Specialty Start Date End Date Ruddy Cooper MD [address] [place] [address] PCP - General 02/16/02 Sid Storm MD [address] [place] [address] Physician Radiation Oncology 02/21/20 Vlad Velasquez MD [address] [place] [address] Home Care Provider Orthopedics 08/08/20 Rigoberto Chase APRON WORKER.FRENCH TRANSLATOR [address] [address] Referring Orthopedics 08/08/20 Bradford Love APRON WORKER.EDGE CUTTING MACHINE OPERATOR [address] [place] [address] International Marketing Coordinator Internal Medicine 04/05/24 Elma Fuchs APRON WORKER.FRENCH TRANSLATOR [address] [place] [address] International Marketing Coordinator Internal Medicine 04/05/24 Plodding Operator Relationship Specialty Start Date End Date Ruddy Cooper MD [address] [place] [address] PCP - General 02/16/02 Sid Storm MD [address] [place] [address] Physician Radiation Oncology 02/21/20 Vlad Velasquez MD [address] [place] [address] Home Care Provider Orthopedics 08/08/20 Rigoberto Chase APRON WORKER.FRENCH TRANSLATOR [address] [place] [address] [phone] Referring Orthopedics 08/08/20 Bradford Love APRON WORKER.EDGE CUTTING MACHINE OPERATOR [address] [place] [address] International Marketing Coordinator Internal Medicine 04/05/24 Elma Fuchs APRON WORKER.FRENCH TRANSLATOR [address] [place] [address] International Marketing Coordinator Internal Medicine 07/20/24 Plodding Operator Relationship Specialty Start Date End Date Ruddy Cooper MD [address] [place] [address] PCP - General 02/16/02 Sid Storm MD [address] [place] [address] Physician Radiation Oncology 02/21/20 Vlad Velasquez MD [address] [place] [address] Home Care Provider Orthopedics 08/08/20 Rigoberto Chase, APRON WORKER.FRENCH TRANSLATOR [address] [place] [address] 58460 Referring Orthopedics 08/08/20 Bradford Love APRON WORKER.EDGE CUTTING MACHINE OPERATOR [address] [place] [address] International Marketing Coordinator Internal Medicine 04/05/24 Elma Fuchs APRON WORKER.FRENCH TRANSLATOR [address] [place] [address] International Marketing Coordinator Internal Medicine 07/20/24 Plodding Operator Relationship Specialty Start Date End Date Ruddy Cooper MD [address] [place] [address] PCP - General 02/16/02 Sid Storm MD [address] [place] [address] Physician Radiation Oncology 02/21/20 Vlad Velasquez MD [address] [place] [address] Home Care Provider Orthopedics 08/08/20 Rigoberto Chase APRON WORKER.FRENCH TRANSLATOR [address] [place] [address], [address] [place] [address]9564 Referring Orthopedics 08/08/20 Bradford Love APRON WORKER.EDGE CUTTING MACHINE OPERATOR [address] [place] [address] International Marketing Coordinator Internal Medicine 04/05/24 Elma Fuchs APRON WORKER.FRENCH TRANSLATOR [address] [place] [address] International Marketing Coordinator Internal Medicine 07/20/24 Plodding Operator Relationship Specialty Start Date End Date Ruddy Cooper MD [address] [place] [address] PCP - General 02/16/02 Sid Storm MD [address] [address] Physician Radiation Oncology 02/21/20 Vlad Velasquez MD [address] [place] [address] Home Care Provider Orthopedics 08/08/20 Rigoberto Chase, APRON WORKER.FRENCH TRANSLATOR [address] [place] [address] [phone] Referring Orthopedics 08/08/20 Bradford Love APRON WORKER.EDGE CUTTING MACHINE OPERATOR [address] [place] [address] International Marketing Coordinator Internal Medicine 04/05/24 Elma Fuchs APRON WORKER.FRENCH TRANSLATOR [address] [place] [address] International Marketing Coordinator Internal Medicine 07/20/24 Plodding Operator Relationship Specialty Start Date End Date Ruddy Cooper MD [address] [place] [address] PCP - General 02/16/02 Sid Storm MD [address] [place] [address] Physician Radiation Oncology 02/21/20 Vlad Velasquez MD [address] [place] [address] Home Care Provider Orthopedics 08/08/20 Rigoberto Chase, APRON WORKER.FRENCH TRANSLATOR [address] [place] [address] 31068 Referring Orthopedics 08/08/20 Bradford Love APRON WORKER.EDGE CUTTING MACHINE OPERATOR [address] [place] [address] International Marketing Coordinator Internal Medicine 04/05/24 Elma Fuchs APRON WORKER.FRENCH TRANSLATOR [address] [place] [address] International Marketing Coordinator Internal Medicine 07/20/24 Plodding Operator Relationship Specialty Start Date End Date Ruddy Cooper MD [address] [place] [address] PCP - General 02/16/02 Sid Storm MD [address] [place] [address] Physician Radiation Oncology 02/21/20 Vlad Velasquez MD [address] [place] [address] Home Care Provider Orthopedics 08/08/20 Rigoberto Chase APRON WORKER.FRENCH TRANSLATOR [address] [facility], [address] [place] [address]10 Referring Orthopedics 08/08/20 Bradford Love APRON WORKER.EDGE CUTTING MACHINE OPERATOR [address] [place] [address] International Marketing Coordinator Internal Medicine 04/05/24 Elma Fuchs APRN.FRENCH TRANSLATOR [address] [place] [address] International Marketing Coordinator Internal Medicine 07/20/24 Plodding Operator Relationship Specialty Start Date End Date Ruddy Cooper MD [address] [place] [address] PCP - General 02/16/02 Sid Storm MD [address] [address] Physician Radiation Oncology 02/21/20 Vlad Velasquez MD [address] [place] [address] Home Care Provider Orthopedics 08/08/20 Rigoberto Chase APRON WORKER.FRENCH TRANSLATOR [address] [place] [address] [phone] Referring Orthopedics 08/08/20 Bradford Love APRON WORKER.EDGE CUTTING MACHINE OPERATOR [address] [place] [address] International Marketing Coordinator Internal Medicine 04/05/24 Elma Fuchs APRON WORKER.FRENCH TRANSLATOR [address] [place] [address] International Marketing Coordinator Internal Medicine 07/20/24 Plodding Operator Relationship Specialty Start Date End Date Ruddy Cooper MD [address] [place] [address] PCP - General 02/16/02 Sid Storm MD [address] [address] Physician Radiation Oncology 02/21/20 Vlad Velasquez MD [address] [place] [address] Home Care Provider Orthopedics 08/08/20 Rigoberto Chase APRON WORKER.FRENCH TRANSLATOR [address] [place] [address] 70067 Referring Orthopedics 08/08/20 Bradford Love, APRON WORKER.EDGE CUTTING MACHINE OPERATOR [address] [place] [address] International Marketing Coordinator Internal Medicine 04/05/24 Elma Fuchs APRON WORKER.FRENCH TRANSLATOR [address] [place] [address] International Marketing Coordinator Internal Medicine 07/20/24 Plodding Operator Relationship Specialty Start Date End Date Ruddy Cooper MD [address] [place] [address] PCP - General 02/16/02 Sid Storm MD [address] [place] [address] Physician Radiation Oncology 02/21/20 Vlad Velasquez MD [address] [place] [address] Home Care Provider Orthopedics 08/08/20 Rigoberto Chase APRON WORKER.FRENCH TRANSLATOR [address] [address] Referring Orthopedics 08/08/20 Bradford Love, APRON WORKER.EDGE CUTTING MACHINE OPERATOR [address] [place] [address] International Marketing Coordinator Internal Medicine 04/05/24 Elma Fuchs APRON WORKER.FRENCH TRANSLATOR [address] [place] [address] International Marketing Coordinator Internal Medicine 07/20/24 Plodding Operator Relationship Specialty Start Date End Date Ruddy Cooper MD [address] [place] [address] PCP - General 02/16/02 Sid Storm MD [address] [facility] [place] [address] Physician Radiation Oncology 02/21/20 Vlad Velasquez MD [address] [place] [address] Home Care Provider Orthopedics 08/08/20 Rigoberto Chase APRON WORKER.FRENCH TRANSLATOR [address] [place] [address] [phone] Referring Orthopedics 08/08/20 Bradford Love APRON WORKER.EDGE CUTTING MACHINE OPERATOR [address] [place] [address] International Marketing Coordinator Internal Medicine 04/05/24 Elma Fuchs APRON WORKER.FRENCH TRANSLATOR [address] [place] [address] International Marketing Coordinator Internal Medicine 07/20/24 Plodding Operator Relationship Specialty Start Date End Date Ruddy Cooper MD [address] [place] [address] PCP - General 02/16/02 Sid Storm MD [address] [address] Physician Radiation Oncology 02/21/20 Vlad Velasquez MD [address] [facility] [place] [address] Home Care Provider Orthopedics 08/08/20 Rigoberto Chase APRON WORKER.FRENCH TRANSLATOR [address] [place] [id number] Referring Orthopedics 08/08/20 Bradford Love APRN.EDGE CUTTING MACHINE OPERATOR [address] [place] [address] International Marketing Coordinator Internal Medicine 04/05/24 Elma Fuchs APRN.FRENCH TRANSLATOR [address] [place] [address] International Marketing Coordinator Internal Medicine 04/05/24 07/16/24 Elma Fuchs APRN.FRENCH TRANSLATOR [address] [place] [address] [facility] Internal Medicine 07/20/24 Plodding Operator Relationship Specialty Start Date End Date Ruddy Cooper MD [address] [place] [address] PCP - General 02/16/02 Sid Storm MD [address] [place] [address] Physician Radiation Oncology 02/21/20 Vlad Velasquez MD [address] [place] [address] Home Care Provider Orthopedics 08/08/20 Rigoberto Chase APRN.FRENCH TRANSLATOR [address] [place] [address] Referring Orthopedics 08/08/20 Bradford Love APRN.EDGE CUTTING MACHINE OPERATOR [address] [place] [address] International Marketing Coordinator Internal Medicine 04/05/24 Elma Fuchs APRN.FRENCH TRANSLATOR [address] [place] [address] International Marketing Coordinator Internal Medicine 07/20/24 Lamar De Leon RN [address] [place], [place] [id number] Primary Care Orthopaedic Nurse Internal Medicine 09/01/24 Plodding Operator Relationship Specialty Start Date End Date Ruddy Cooper MD [address] [place] [address] PCP - General 02/16/02 Sid Storm MD [address] [place], [place] [address]91 Physician Radiation Oncology 02/21/20 Vlad Velasquez MD [address] [place] [address] Home Care Provider Orthopedics 08/08/20 Rigoberto Chase, APRON WORKER.FRENCH TRANSLATOR [address] [phone] Referring Orthopedics 08/08/20 Bradford Love APRON WORKER.EDGE CUTTING MACHINE OPERATOR [address] [place] [address] International Marketing Coordinator Internal Medicine 04/05/24 Elma Fuchs, APRON WORKER.FRENCH TRANSLATOR [address] [place] [address] International Marketing Coordinator Internal Medicine 07/20/24 Lamar De Leon RN [address] [place] [address] Primary Care Orthopaedic Nurse Internal Medicine 09/01/24 Plodding Operator Relationship Specialty Start Date End Date Ruddy Cooper MD [address] [place] [address] PCP - General 02/16/02 Sid Storm MD [address] [place], [place] [address] Physician Radiation Oncology 02/21/20 Vlad Velasquez MD [address] [place] [address] Home Care Provider Orthopedics 08/08/20 Rigoberto Chase, APRON WORKER.FRENCH TRANSLATOR [address] [place] [address] Referring Orthopedics 08/08/20 Bradford Love APRON WORKER.EDGE CUTTING MACHINE OPERATOR [address] [place], [place] [address]19031 International Marketing Coordinator Internal Medicine 04/05/24 Elma Fuchs, APRON WORKER.FRENCH TRANSLATOR [address] [place] [address] International Marketing Coordinator Internal Medicine 07/20/24 Lamar De Leon, RN [address] [place] [address] Primary Care Orthopaedic Nurse Internal Medicine 09/01/24 Plodding Operator Relationship Specialty Start Date End Date Ruddy Cooper MD [address] [place] [address] PCP - General 02/16/02 Sid Storm MD [address] [place] [address] Physician Radiation Oncology 02/21/20 Vlad Velasquez MD [address] [place] [address] Home Care Provider Orthopedics 08/08/20 Rigoberto Chase APRON WORKER.FRENCH TRANSLATOR [address] [place] [address] Referring Orthopedics 08/08/20 Bradford Love, SHAHID.EDGE CUTTING MACHINE OPERATOR [address] [place] [address] International Marketing Coordinator Internal Medicine 04/05/24 Elma Fuchs APRON WORKER.FRENCH TRANSLATOR [address] [place] [address] International Marketing Coordinator Internal Medicine 07/20/24 Lamar De Leon, RN [address] [place] [address] Primary Care Orthopaedic Nurse Internal Medicine 09/01/24 Plodding Operator Relationship Specialty Start Date End Date Ruddy Cooper MD [address] [place] [address] PCP - General 02/16/02 Sid Storm MD [address] [place] [address] Physician Radiation Oncology 02/21/20 Vlad Velasquez MD [address] [place] [address] Home Care Provider Orthopedics 08/08/20 Rigoberto Chase, SHAHID.FRENCH TRANSLATOR [address] [place] [id number] Referring Orthopedics 08/08/20 Bradford Love, SHAHID.EDGE CUTTING MACHINE OPERATOR [address] [place] [address] International Marketing Coordinator Internal Medicine 04/05/24 Elma Fuchs APRN.FRENCH TRANSLATOR [address] [place] [address] International Marketing Coordinator Internal Medicine 07/20/24 Lamar De Leon, RN [address] [place] [address] Primary Care Orthopaedic Nurse Internal Medicine 09/01/24 Team Status: Active Member [...] September 08, 2024 End: September 09, 2024 Plodding Operator Relationship Specialty Start Date End Date Ruddy Cooper MD [address] [place] [address] PCP - General 02/16/02 Sid Storm MD [address] [place], [place] [address] Physician Radiation Oncology 02/21/20 Vlad Velasquez MD [address] [place] [address] Home Care Provider Orthopedics 08/08/20 Rigoberto Chase, APRON WORKER.FRENCH TRANSLATOR [address] [facility], [address] [place] [phone] Referring Orthopedics 08/08/20 Elma Fuchs APRON WORKER.FRENCH TRANSLATOR [address] [place] [address] International Marketing Coordinator Internal Medicine 07/20/24 Lamar De Leon, LAURITA [address] [place] [address] Primary Care Orthopaedic Nurse Internal Medicine 09/01/24 Bradford Love APRON WORKER.EDGE CUTTING MACHINE OPERATOR [address] [place] [address] International Marketing Coordinator Internal Medicine 09/15/24 Plodding Operator Relationship Specialty Start Date End Date Ruddy Cooper MD [address] [place] [address] PCP - General 02/16/02 Sid Storm MD [address] [place] [address] Physician Radiation Oncology 02/21/20 Vlad Velasquez MD [address] [facility] [place] [address] Home Care Provider Orthopedics 08/08/20 Rigoberto Chase, APRON WORKER.FRENCH TRANSLATOR [address] [facility], [address] [place] [address] Referring Orthopedics 08/08/20 Elma Fuchs APRN.FRENCH TRANSLATOR [address] [place], [place] [address]6551 International Marketing Coordinator Internal Medicine 07/20/24 Bradford Love APRN.EDGE CUTTING MACHINE OPERATOR [address] [place], [place] [id number] International Marketing Coordinator Internal Medicine 09/15/24 Goals (unrecognized section and [...] BE BASED ON THE PRIMARY CLINICAL RECORDS. [facility] provides no warranty or guarantee of the accuracy or completeness of information in this document.
[2024-10-10 18:37] LABS: Reflex Lactate? Y
[2024-10-10 18:43] LABS: Troponin T High Sens 4 HR 13 ng/L (<=14)
[2024-10-10 18:57] VITALS: BMI 25.6
[2024-10-10 19:00] VITALS: BP 129/67; PULSE 87; RESP 16; TEMP 36.3; O2SAT 94
[2024-10-10 19:34] LABS: Lactic Acid 1.5 mmol/L (0.0-2.0)
[2024-10-10] MEDS: 0.9% Normal Saline (1000mL) 1,000 ML 75 ML IV (20:25)
[2024-10-10 20:42] VITALS: BP 132/57; PULSE 78; RESP 16; TEMP 36.4; O2SAT 99
[2024-10-10] MEDS: Nortriptyline 25 MG Capsule 150 MG PO (21:34)
[2024-10-10 22:13] LABS: Bedside Glucose 159 mg/dL (74-106)
[2024-10-11 02:42] VITALS: BP 144/60; PULSE 80; RESP 16; TEMP 36.6; O2SAT 96
[2024-10-11 06:58] LABS: Bedside Glucose 113 mg/dL (74-106)
[2024-10-11 06:59] LABS: Absolute Lymphocyte Count 1.75 X10^3/uL (0.83-4.51); Absolute Neutrophil Count 3.6 X10^3/uL (2.0-7.7); Basophil# 0.03 X10^3/uL; Basophil% 0.5 % (0-1); Eosinophil# 0.32 X10^3/uL; Eosinophils% 5.2 % (0-5); Hematocrit 36.5 % (37-47); Hemoglobin 11.9 g/dL (12.0-15.0); Lymphocyte # 1.75 X10^3/ul (0.83-4.51); Lymphocyte % 28.2 % (19-41); Mean Corp Hgb Conc 32.6 g/dL (32-36); Mean Corpuscular Hgb 30.1 pg (27.0-32.0); Mean Corpuscular Volume 92.2 fL (81-99); Mean Platelet Vol. 8.3 fl (6.2-12.0); Monocyte# 0.53 X10^3/uL; Monocyte% 8.5 % (0-10); NRBC Flagged by Analyzer 0 % (0-5); Neutrophil # 3.56 X10^3/uL (2.7-7.7); Neutrophil % 57.4 % (47-70); Platelet Count 284 K/mm3 (150-450); RBC Distribution Width SD 40.9 fl (35.1-43.9); Red Blood Count 3.96 M/mm3 (4.2-5.4); White Blood Count 6.2 K/mm3 (4.4-11.0)
[2024-10-11] MEDS: Aspirin E.C. 81 MG Tablet PO (07:54)
[2024-10-11] MEDS: Enoxaparin 40 MG/0.4 ML Syringe SC (07:54)
[2024-10-11] MEDS: Losartan Potassium 25 MG Tablet PO (07:54)
[2024-10-11 08:00] VITALS: BP 140/70; PULSE 73; RESP 18; TEMP 37.1; O2SAT 98
[2024-10-11 08:04] LABS: Anion Gap 12 (5-15); BUN 16 mg/dL (4-19); BUN/Creat Ratio 20.1 RATIO (10-20); Calcium,Total 8.3 mg/dL (7.6-11.0); Carbon Dioxide 20.5 mmol/L (21.0-32.0); Chloride 107 mmol/L (98-108); Creatinine, Serum 0.81 mg/dL (0.70-1.20); EST Glomerular Filtration Rate 75 (>60); Estimated Creatinine Clearance 52.16 ml/min (50-250); Glucose 113 mg/dL (70-99); Potassium 4.3 mmol/L (3.3-5.1); Sodium Level 139 mmol/L (133-145)
--- NOTE | 2024-10-11 09:56 | PN.HOSP_ITS ---
Subjective Subjective Doing well today, seems little better than yesterday. She is A and O x 3 today Objective Data Objective Data Vital Signs: Vital Signs Temp Pulse Resp BP Pulse Ox O2 Del Method 97.9 F 80 16 144/60 H 96 Room Air 10/11/24 02:42 10/11/24 02:42 10/11/24 02:42 10/11/24 02:42 10/11/24 02:42 10/11/24 02:42 Oxygen Delivery Method Room Air Weight: 144 lb 13.499 oz Body Mass Index (BMI) 25.6 Intake & Output: Intake and Output for Last 24 Hours 10/10/24 10/11/24 10/12/24 03:59 03:59 03:59 Intake Total 1050 / 1050 Balance 1050 / 1050 Lab / Micro Data 10/11/24 06:41 10/11/24 06:41 Labs: Laboratory Results - last 24 hr 10/10/24 14:22: WBC 6.3, RBC 4.33, Hgb 13.2, Hct 39.8, MCV 91.9, MCH 30.5, MCHC 33.2, RDW Std Deviation 40.5, RDW Coeff of Meño 12.0, Plt Count 323, MPV 8.3, Immature Gran % (Auto) 0.300, Neut % (Auto) 62.3, Lymph % (Auto) 23.5, Bartholomew % (Auto) 9.3, Eos % (Auto) 3.8, Baso % (Auto) 0.8, Absolute Neuts (auto) 3.9, Absolute Lymphs (auto) 1.47, Nucleated RBC % 0, Sodium 136, Potassium 4.3, Chloride 103, Carbon Dioxide 22.2, Anion Gap 11, BUN 17, Creatinine 0.85, Estim Creat Clear Calc 50.87, Est GFR (MDRD) Non-Af 70, BUN/Creatinine Ratio 19.9, G lucose 194 H, Lactic Acid 2.6 H*, Calcium 9.1, Troponin T High Sens 15 H 10/10/24 15:30: Urine Color Yellow, Urine Clarity Cloudy, Urine pH 7.0, Ur Specific Morris 1.015, Urine Protein 15 H, Urine Glucose (UA) Normal, Urine Ketones Negative, Urine Occult Blood Negative, Urine Nitrite Positive H, Urine Bilirubin Negative, Urine Urobilinogen Normal, Ur Leukocyte Esterase 100 H, Urine RBC 0 SEEN, Urine WBC 5-10 SEEN, Ur Squamous Epith Cells 0-5 SEEN, Amorphous Sediment 3+, Urine Bacteria 4+, Coarse Granular Casts 0-5 SEEN, Urine Mucus 0 SEEN 10/10/24 16:20: Troponin T Hi Sens 2 Hr 15 H 10/10/24 18:16: Troponin T Hi Sens 4Hr 13 10/10/24 19:06: Lactic Acid 1.5 10/10/24 21:32: POC Glucose 159 H 10/11/24 06:41: WBC 6.2, RBC 3.96 L, Hgb 11.9 L, Hct 36.5 L, MCV 92.2, MCH 30.1, MCHC 32.6, RDW Std Deviation 40.9, RDW Coeff of Meño 12.0, Plt Count 284, MPV 8.3, Immature Gran % (Auto) 0.200, Neut % (Auto) 57.4, Lymph % (Auto) 28.2, Bartholomew % (Auto) 8.5, Eos % (Auto) 5.2 H, Baso % (Auto) 0.5, Absolute Neuts (auto) 3.6, Absolute Lymphs (auto) 1.75, Nucleated RBC % 0, Sodium 139, Potassium 4.3, Chloride 107, Carbon Dioxide 20.5 L, Anion Gap 12, BUN 16, Creatinine 0.81, Estim Creat Clear Calc 52.16, Est GFR (MDRD) Non-Af 75, BUN/Creatinine Ratio 20.1 H, Glucose 113 H, Calcium 8.3, POC Glucose 113 H Micro: Microbiology 10/10/24 15:30 Urine, Clean Catch Urine Culture - Preliminary GNR lactose hvac r tech 10/10/24 15:20 Mucosa - Nose SARS-CoV-2, Influenza & RSV (PCR) - Final Radiography Diagnostic Testing: Radiology Impression Brain CT 10/10/24 14:21 IMPRESSION: No acute intracranial finding. Stable postoperative changes as described. Reading Location: [facility] Chest X-Ray 10/10/24 15:05 IMPRESSION: NO ACUTE FINDINGS. Reading Location: [facility] Physical Exam Narrative General: Alert, Oriented x3, Cooperative, No apparent distress HEENT: Atraumatic, PERRLA, EOMI, Normocephalic Oral: Moist Mucosa Neck: Supple, No JVD Lungs: Diminished, Normal air movement, No rhonchi, No wheeze, No rales Cardiovascular: Regular rate, Regular Rhythm, Normal S1, Normal S2, No murmurs Abdomen: Soft, Non Tender, Non-Distended, No Hepato-splenomegaly Extremities: Nonpitting edema, Capillary Refill Less than 3 Seconds Skin: No rashes, No breakdown Musculoskeletal: No Tenderness to Palpation of Joints or Extremities Neurological: No focal neurological deficits, moves all extremities, sensation intact Psych/Mental Status: Normal Affect, Appropriate Assessment & Plan Assessment/Plan (1) Urinary tract infection: PLAN: Plan 1. Metabolic encephalopathy secondary to UTI ? Continue with Rocephin as her previous cultures were Proteus and are sensitive ? Continue with gentle IV fluids ? Urine culture is with greater than 100,000 CFU's of a gram-negative reba ? She is not septic, and encephalopathy has resolved 2. Essential HTN ? Blood pressures are stable ? Can resume her home losartan ? Will monitor make adjustments as necessary 3. DM2 ? Will hold her home medications ? Will monitor and make adjustments as necessary ? Sliding-scale insulin ? Accu-Cheks ACHS 4. She is on nortriptyline and possibly Seroquel unclear why at the moment 5. 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 can resume if family brings in as it is nonformulary DVT: Lovenox Charges/Coding Visit Charges Inpatient E&M: 14170 Subs Hosp L2
[2024-10-11] MEDS: 0.9% Normal Saline (1000mL) 1,000 ML 75 ML IV (10:52)
[2024-10-11] MEDS: Ceftriaxone 1 GM/50 ML BAG IV (10:53)
[2024-10-11] MEDS: Insulin Lispro 100 UNIT/ML INSULN.PEN SC ×2 (11:00→22:49)
--- NOTE | 2024-10-11 11:08 | CASEMGMT ---
LAURITA ZULUAGA Assessment: Face to Face with pt for initial transition planning/care coordination assessment. RN ZAN introduced self and role at [facility], pt voices understanding and consents to assessment. Pt is A&O x3 and answers all questions appropriately at this time. Pt takes a little bit of time for recall but is able to recall most information and is oriented. Care providers, pharmacy, and demographics verified/updated. Admitting Dx: AMS with UTI Strata Score: 3 PCP:Bernardo Specialists:oncologist in [place] but unable to recall name [facility] [place] Insurance: [place] Prescription Benefit: yes LNOK: Tushar Pittman, son; Sade Pittman, dtr Living Arrangements: Pt lives alone in a single story condo with no steps to enter. Pt reports she is I in ADL/IADLs and denies concerns at home. Transportation: Pt drives self and denies concerns with transportation. DME:cane, walker HHC/SNF: Pt states a nurse from her insurance comes 1x/yr but has not had formal HHC services. Pt has been to [facility] in the past. Pt states no concerns with going home at time of dc. Pt states no further concerns/needs. CM to follow. Advised pt to ask CM if any further questions/concerns/needs arise, voices understanding. Pt Goal: Home Plan: Home Stephanie SHAY CM
[2024-10-11 11:15] LABS: Bedside Glucose 205 mg/dL (74-106)
[2024-10-11 14:00] VITALS: BP 143/86; PULSE 88; RESP 18; TEMP 37; O2SAT 99
[2024-10-11 16:41] LABS: Bedside Glucose 100 mg/dL (74-106)
[2024-10-11 21:07] VITALS: BP 149/76; PULSE 82; RESP 16; TEMP 36.6; O2SAT 98
[2024-10-11] MEDS: Nortriptyline 25 MG Capsule 150 MG PO (22:50)
[2024-10-11 23:07] LABS: Bedside Glucose 158 mg/dL (74-106)
[2024-10-12] MEDS: 0.9% Normal Saline (1000mL) 1,000 ML 75 ML IV (00:17)
[2024-10-12 03:59] VITALS: BP 129/57; PULSE 86; RESP 16; TEMP 36.6; O2SAT 98
[2024-10-12 06:43] LABS: Bedside Glucose 115 mg/dL (74-106)
[2024-10-12] MEDS: Losartan Potassium 25 MG Tablet PO (08:42)
[2024-10-12] MEDS: Aspirin E.C. 81 MG Tablet PO (08:43)
[2024-10-12] MEDS: Enoxaparin 40 MG/0.4 ML Syringe SC (08:43)
[2024-10-12 09:00] VITALS: BP 132/62; PULSE 90; RESP 18; TEMP 36.7; O2SAT 98
[2024-10-12] MEDS: Ceftriaxone 1 GM/50 ML BAG IV (10:31)
--- NOTE | 2024-10-12 10:31 | CASEMGMT ---
Addendum entered by Vicky Lyles 10/12/24 14:05: ADRYAN spoke with Kristin, who reports that she will follow up with pt dtr. Kristin reports that she feels pt would benefit from work-up outpatient and additional support from family due to confusion. Kristin reports that she will complete APS referral for pt. Information on [facility] provided to pt. Pt refusing HHC. Pt has appointment tomorrow; family has set up transport. ADRYAN called pt dtr Sade and collaborated regarding d/c planning. Sade is going to call pt to discuss HHC with pt. Sade reports that appt tomorrow is with geriatric dr and she will request additional cognitive follow-up. Sade has called pt neighbor for transport. THEA Mott Original Note: Social Work- SW received notice from nurse that pt dtr and POASade, has pt dtr concerns about bizarre conversation with pt this morning. Bedside nurse also expressed concerns regarding safety of pt at discharge due to level of confusion. ADRYAN called pt dtr who reports that she does not feel pt is safe for d/c. Sade reports mom is discussing her baby daughter (who is age 50 years), juice coming from the ceiling, buying a house, and other disoriented thoughts that are not reality-based. ADRYAN discussed that pt does not have skilled needs, so insurance would not cover a SNF stay. SW encouraged that a dementia/cognitive work-up could be completed through PCP/referrals to neurology/other appropriate specialists. Pt dtr questioned how to keep pt safe in the interim, as pt is uncooperative due to confusion. ADRYAN provided information regarding referral for shar-psych assessment. Pt dtr would like to have pt evaluated for potential placement for stabilization. ADRYAN updated hospitalist on conversation with dtr. Hospitalist agreeable to eval, reporting that pt will d/c today irregardless. ADRYAN completed referral to [facility]. ADRYAN called [facility] to confirm fax receipt. ADYRAN remains available to follow. THEA Mott
[2024-10-12 11:44] LABS: Bedside Glucose 128 mg/dL (74-106)
--- NOTE | 2024-10-12 12:54 | DCINST_ITS ---
Discharge Instructions Diet Discharge Diet: No restrictions DC O2, CPAP, BIPAP needs Home O2 Discharge instructions: No Dressing / Incision Discharge Activity: Return to Normal Activity Dressing / Incision Call your doctor if you observe: Fever of 101 or Higher, Shortness of breath, Dizziness, Fainting spells, Swelling in the ankles, Chest pain and Increased palpitations (irregular heartbeat) Follow Up Care Test Results: Test results from this visit will be discussed in further detail at your follow- up appointment, if applicable. Discharge Plan Admission Admit Date/Time: 10/10/24 16:33 Attending Provider: Luis Baer Primary Care Provider: Radha Chang Discharge Orders/Prescriptions Prescriptions: New cefdinir 300 mg capsule 300 mg PO BID Qty: 6 0RF Continued aspirin 81 mg Tablet 81 mg PO DAILY metformin 500 mg tablet 500 mg PO DAILY letrozole 2.5 mg tablet 2.5 mg PO DAILY nortriptyline 50 mg capsule 150 mg PO QHS meclizine [Antivert] 25 mg tablet,chewable 25 mg PO TID PRN (Reason: dizziness) Qty: 10 0RF Patient Comments: Per daughter, takes as needed. Rx Instructions: Use if having dizziness. losartan 25 mg tablet 25 mg PO DAILY Referrals / Follow Up: Radha Chang MD [Primary Care Provider] - Within 1 Week Disposition Disposition (needs filled in before D/C Order can be placed): Home, Self Care
[2024-10-12 13:57] VITALS: BP 142/68; PULSE 82; RESP 16; TEMP 36.6; O2SAT 99
--- NOTE | 2024-10-12 13:57 | CASEMGMT ---
RN CM into pt room, pt lying in bed in no distress. Discussed HHC with pt for SN for education/prevention of UTI's, pt declines. Pt is ready to be dc'd. Denies further needs.
--- NOTE | 2024-10-12 13:59 | PCM.DC.SUM ---
Providers Date of Admission: 10/10/24 Primary Care Physician: Dr. Radha Chang MD Reason For Visit: AMS WITH UTI Diagnosis Discharge Diagnosis (1) Urinary tract infection: Status: Acute Code(s): N39.0 - Urinary tract infection, site not specified Medications at Discharge Home Medications aspirin 81 mg tablet 81 mg PO DAILY heart health 02/02/21 letrozole 2.5 mg tablet 2.5 mg PO DAILY 08/25/24 metformin 500 mg tablet 500 mg PO DAILY diabetes mellitus 08/25/24 nortriptyline 50 mg capsule 150 mg PO QHS 08/25/24 meclizine 25 mg chewable tablet (Antivert) 25 mg PO TID PRN dizziness #10 tabs 09/09/24 losartan 25 mg tablet 25 mg PO DAILY 10/10/24 cefdinir 300 mg capsule 300 mg PO BID #6 caps 10/12/24 Hospital Course Operations None Procedures None Summary of Care Provided Minutes Spent on Discharge: 34 Hospital Course: Per HPI: QUINCY KRAUSE, is a 79 F who presents to the hospital with confusion. Her daughter called the ambulance because she was talking to her on the phone and felt she was giving inappropriate responses and seemed confused. She states that she spoke to her daughter yesterday not today. She is not a great historian because she thinks is 1924 and she cannot give the duration of her symptoms however she says that she has been feeling off for a little bit and in the ER was found to have normal vital signs and fairly normal lab work, her lactic acid was elevated 2.6 but she does not have a leukocytosis, and she remains afebrile, brain CT and chest x-ray are unremarkable. Urine analysis demonstrates positive nitrites with leukocyte esterase of 104+ urine bacteria. Her previous culture in July grew a pansensitive Proteus and she was given a dose of Rocephin in the emergency room. Hospital Course: 1. Metabolic encephalopathy secondary to UTI in the presence of previous psychiatric illness and possible dementia?79-year-old female presents from home with confusion and altered mental status. She was on the phone with her daughter and she was nonsensical. This has been a chronic problem though it is unclear what steps been taken on the outpatient side to get her help for possible placement. Initially on admission she was confused, she thought it was 1925 but she knew who she was and where she was. Today she is much more alert with me and more appropriately interactive and is ANO x 3. Crisis was consulted for an evaluation however further workup will need to be deferred to the outpatient setting. Best case scenario would be for her to live with family however she has a pansensitive E. coli UTI that has been treated appropriately with Rocephin and she will continue with cefdinir for 3 more days to complete treatment. Plan will be for discharge home with outpatient follow-up with her PCP in 3 to 5 days. 2. Essential hypertension, type 2 diabetes, history of breast cancer on hormonal therapy all chronic medical conditions which complicate her care. Her home medications were continued where appropriate Physical Exam Narrative General: Alert, Oriented x3, Cooperative, No apparent distress HEENT: Atraumatic, PERRLA, EOMI, Normocephalic Oral: Moist Mucosa Neck: Supple, No JVD Lungs: Diminished, Normal air movement, No rhonchi, No wheeze, No rales Cardiovascular: Regular rate, Regular Rhythm, Normal S1, Normal S2, No murmurs Abdomen: Soft, Non Tender, Non-Distended, No Hepato-splenomegaly Extremities: Nonpitting edema, Capillary Refill Less than 3 Seconds Skin: No rashes, No breakdown Musculoskeletal: No Tenderness to Palpation of Joints or Extremities Neurological: No focal neurological deficits, moves all extremities, sensation intact Psych/Mental Status: Normal Affect, Appropriate Weight / BMI Weight Weight: 144 lb 13.499 oz Body Mass Index (BMI) 25.6 ABG / Lab / Microbiology Data 10/11/24 06:41 10/11/24 06:41 Laboratory: Laboratory Results - last 24 hr 10/11/24 16:23: POC Glucose 100 10/11/24 22:49: POC Glucose 158 H 10/12/24 06:17: POC Glucose 115 H 10/12/24 11:27: POC Glucose 128 H Microbiology: Microbiology 10/10/24 15:30 Urine, Clean Catch Urine Culture - Final Escherichia coli 10/10/24 15:20 Mucosa - Nose SARS-CoV-2, Influenza & RSV (PCR) - Final D/C Instructions Discharge Diet: No restrictions Call your doctor if you observe: Fever of 101 or Higher, Shortness of breath, Dizziness, Fainting spells, Swelling in the ankles, Chest pain and Increased palpitations (irregular heartbeat) DC O2, CPAP, BIPAP Needs Home O2 Discharge instructions: No Meaningful Use Info Meaningful Use Meaningful Use Diagnoses (Choose all that apply): None applicable Ischemic Stroke Statin Dosing Therapy Reference: STATIN DOSE THERAPY REFERENCE: * Patients > 75 years receive moderate or high dose statin therapy. * Patients 75 years or YOUNGER should receive HIGH intensity statin dose unless contraindicated. You will be required to document reason for non-treatment if statin daily dose does not meet guidelines. HIGH DOSE STATIN THERAPY DAILY Atorvastatin > than or = to 40 mg Rosuvastatin > than or = to 20 mg Amlodipine + Atorvastatin > than or = to 2.5/40 mg Ezetimibe + Simvastatin 10/80 mg Simvastatin 80mg Discharge Plan Admission Admit Date/Time: 10/10/24 16:33 Attending Provider: Luis Baer Primary Care Provider: Radha Chang Discharge Orders/Prescriptions Prescriptions: New cefdinir 300 mg capsule 300 mg PO BID Qty: 6 0RF Continued aspirin 81 mg Tablet 81 mg PO DAILY metformin 500 mg tablet 500 mg PO DAILY letrozole 2.5 mg tablet 2.5 mg PO DAILY nortriptyline 50 mg capsule 150 mg PO QHS meclizine [Antivert] 25 mg tablet,chewable 25 mg PO TID PRN (Reason: dizziness) Qty: 10 0RF Patient Comments: Per daughter, takes as needed. Rx Instructions: Use if having dizziness. losartan 25 mg tablet 25 mg PO DAILY Referrals / Follow Up: Radha Chang MD [Primary Care Provider] - 10/18/24 11:40 am (THIS APPOINTMENT WILL BE WITH PREMA JOHN ) Disposition Disposition (needs filled in before D/C Order can be placed): Home, Self Care Charges/Coding Visit Charges Inpatient E&M: 30768 Disch Hosp >30min
--- NOTE | 2024-10-12 14:14 | CASEMGMT ---
Addendum entered by Arely Benitez 10/12/24 14:51: Received tc back from Shelly at [facility], they can accept pt for SOC on . LAURITA CM into pt room, pt states she is aware she spoke with her dtr and she is agreeable to [facility]. She is aware that they will come to her home on and be calling to set up a time to come to her home. Pt denies further needs. Original Note: Per SW, pt dtr would like [facility] and pt is agreeable. She did not have preference of agency. TC to [facility], spoke with Shelly, referral made at this time for SN and [facility].
--- NOTE | 2024-10-12 14:56 | PHA.DC.MC.R ---
Pharmacy [facility] Counseling Pharmacy Service has performed discharge medication reconciliation and counseling for this patient. 1. CEFDINIR 300MG PO BID X 3 DAYS The patient's discharge medication list was reviewed for discrepancies and discrepancies were resolved. The patient was counseled on the following discharge medications and changes in medications for homegoing were reviewed. The Reason for Use, instructions for use, and potential side effects were reviewed for all new medications. The patient's questions regarding all of their medications were answered. The patient was able to verbally demonstrate an understanding of their discharge medications. Medications at Discharge Home Medications aspirin 81 mg tablet 81 mg PO DAILY heart health 02/02/21 letrozole 2.5 mg tablet 2.5 mg PO DAILY 08/25/24 metformin 500 mg tablet 500 mg PO DAILY diabetes mellitus 08/25/24 nortriptyline 50 mg capsule 150 mg PO QHS 08/25/24 meclizine 25 mg chewable tablet (Antivert) 25 mg PO TID PRN dizziness #10 tabs 09/09/24 losartan 25 mg tablet 25 mg PO DAILY 10/10/24 cefdinir 300 mg capsule 300 mg PO BID #6 caps 10/12/24
--- NOTE | 2024-10-13 14:50 | CASEMGMT ---
Social Work- SW received a phone call from pt dtr Sadelex Michelle reporting that pt cannot find medications and is not doing well. Sade reports that pt missed her appointment today because she did not feel well although dtr questioned the validity of that statement. Sade is questioning when HHC will start and what days they will come, as she is working to arrange other care for pt. SW directed Sade to call [facility] to discuss start of care. ADRYAN encouraged that if pt is not able to care for self and is a safety concern, additional immediate interventions should be sought through crisis or emergency services. ADRYAN called [facility]PS to follow up on referral completed yesterday and to update on pt reported confusion. THEA Mott
== END 2024-10-12 15:57 | disposition home health service (06) | DRG 689 ==
LOC: ED 16:43 → MS3 17:26
PROVIDERS: Admitting Provider Family Medicine; Emergency Provider Emergency Medicine; PCP Internal Medicine; Visit Provider Family Medicine
DX: N39.0 Urinary tract infection, site not specified (principal); G93.41 Metabolic encephalopathy; E87.20 Acidosis, unspecified; C50.912 Malignant neoplasm of unspecified site of left female breast; E11.9 Type 2 diabetes mellitus without complications; B96.20 Unspecified Escherichia coli [E. coli] as the cause of diseases classified elsewhere; F03.90 Unspecified dementia, unspecified severity, without behavioral disturbance, psychotic disturbance, mood disturbance, and anxiety; I10 Essential (primary) hypertension; E78.5 Hyperlipidemia, unspecified; Z79.811 Long term (current) use of aromatase inhibitors; Z79.82 Long term (current) use of aspirin; Z79.84 Long term (current) use of oral hypoglycemic drugs; Z79.899 Other long term (current) drug therapy; Z11.52 Encounter for screening for COVID-19
CPT/HCPCS: 36415; 70450; 71046; 80048; 81001; 82962; 83605; 84484; 85025; 87040; 87077; 87086; 87088; 87186; 87631; 93005; 99285; A4216; J0696

== ENCOUNTER 2024-10-19 12:18 | Observation (INO) | payer MEDICARE, SELFPAY ==
[2024-10-19] VITALS (12 sets, daily range): BP systolic 104–164; BP diastolic 50–125; PULSE 72–91; RESP 13–25; TEMP 36.6–37.1; O2SAT 98–100; BMI 25.7; BMI 27.8
--- NOTE | 2024-10-19 13:30 | RAD_ITS ---
PROCEDURE: CHEST PA AND LATERAL 10/19/2024 REASON FOR EXAM: WEAKNESS TECHNIQUE: CHEST PA AND LATERAL COMPARISON: Prior study dated October 10, 2024. FINDINGS: Hardware: EKG electrodes are seen. Heart: The heart is nonenlarged. Mediastinum: The mediastinal contour is unremarkable. Lungs: Calcified right pleural plaques. Stable examination. Bones: Degenerative changes are identified within the thoracic spine. RAD/Chest PA and Lateral IMPRESSION: No acute abnormality is seen. Calcified right-sided pleural plaques. Reading Location: [id number]
--- NOTE | 2024-10-19 13:30 | EKG12_ITS ---
Test Reason : CONFUSION Blood Pressure : */* mmHG Vent. Rate : 83 BPM Atrial Rate : 83 BPM P-R Int : 218 ms QRS Dur : 98 ms QT Int : 376 ms P-R-T Axes : 42 -8 59 degrees QTcB Int : 441 ms Sinus rhythm with 1st degree A-V block Otherwise normal ECG When compared with ECG of 10-Oct-2024 14:29, UT interval has increased Confirmed by RAFAEL TAVERA, GOLDY ([id number]), editor & co founder DONITA CARPENTER ([id number]) on 10/19/2024 1:56:09 PM Referred By: Confirmed By: GOLDY HALL MD
[2024-10-19] MEDS: 0.9% Normal Saline (500mL Bag) 500 ML 1000 ML IV (13:43)
[2024-10-19 13:48] LABS: Absolute Lymphocyte Count 1.76 X10^3/uL (0.83-4.51); Absolute Neutrophil Count 6.7 X10^3/uL (2.0-7.7); Basophil# 0.05 X10^3/uL; Basophil% 0.5 % (0-1); Eosinophil# 0.24 X10^3/uL; Eosinophils% 2.5 % (0-5); Hematocrit 40.6 % (37-47); Hemoglobin 13.3 g/dL (12.0-15.0); Lymphocyte # 1.76 X10^3/ul (0.83-4.51); Lymphocyte % 18.5 % (19-41); Mean Corp Hgb Conc 32.8 g/dL (32-36); Mean Corpuscular Volume 91.6 fL (81-99); Mean Platelet Vol. 8.4 fl (6.2-12.0); Monocyte# 0.77 X10^3/uL; Monocyte% 8.1 % (0-10); NRBC Flagged by Analyzer 0 % (0-5); Neutrophil # 6.68 X10^3/uL (2.7-7.7); Neutrophil % 70.1 % (47-70); Platelet Count 330 K/mm3 (150-450); RBC Distribution Width CV 12.2 % (11.6-14.6); RBC Distribution Width SD 41.1 fl (35.1-43.9); Red Blood Count 4.43 M/mm3 (4.2-5.4); White Blood Count 9.5 K/mm3 (4.4-11.0)
--- NOTE | 2024-10-19 13:50 | CT_ITS ---
PROCEDURE: BRAIN/HEAD WITHOUT CONTRAST 10/19/2024 REASON FOR EXAM: CONFUSION TECHNIQUE: BRAIN/HEAD WITHOUT CONTRAST Coronal and Sagittal reconstruction series were provided. One or more dose reduction techniques were used (e.g., Automated exposure control, adjustment of the mA and/or kV according to patient size, use of iterative reconstruction technique. RADIATION DOSE SUMMARY: CTDlvol: 47.06 mGy DLP: 925.62 mGycm COMPARISON: Prior study dated October 10, 2024. FINDINGS: Brain: Low density in the periventricular white matter suggests mild chronic small vessel ischemic changes. CSF Spaces: Mild generalized cerebral atrophy status post aneurysmal clipping in the region of the left [id number] in the left temporal lobe with evidence of encephalomalacia. Ipsilateral dilatation of the left frontal horn in keeping with atrophy. This is unchanged. Sinuses/Mastoids: Minimal mucosal thickening of the right maxillary sinus. Bones: Prior left craniotomy. CT/Brain/Head without Contrast IMPRESSION: NO SIGNIFICANT CHANGE SINCE THE PRIOR EXAM no acute abnormality is seen. Reading Location: [id number]
--- NOTE | 2024-10-19 14:04 | EX.ED.DYSGE1 ---
HPI <Dr. Mikel Bonilla DO - Last Filed: 10/21/24 07:20> History of Present Illness Chief Complaint: Fall Informant: patient and family Narrative Narrative: Patient brought in by EMS from home. Daughter, Sade called for a well check who is in [place]. She is currently on the phone during my evaluation. Patient lives alone intermittently ambulates with cane as a walker if needed. Daughters 1 in [place] 1 in the [facility]. Patient reports she was on the ground had a hard time getting up. She states she is only on the ground for an hour. Daughter reports she tried calling her since yesterday evening nobody picked up, she called EMS for well check. Reported she was found on the ground. Patient is more confused. Patient denies any pain. She denies cough vomiting diarrhea or urinary symptoms. However daughter reports that her recent similar event with confusion and found to have a UTI. When she was discharged unclear if she finished her antibiotics. She confirms she is not acting her normal self. During discussion patient discussing events with Dameon Hogue. Prior similar symptoms: Yes PFSH <Dr. Mikel Bonilla, - Last Filed: 10/21/24 07:20> [facility] Medical History Orthostatic hypotension Hoarseness History of stress test Anxiety Depression Migraines Normochromic normocytic anemia Diabetes mellitus type 2 in nonobese Hyponatremia Obstructive hydrocephalus IVH (intraventricular hemorrhage) Infiltrating ductal carcinoma of left breast HTN (hypertension) Brain aneurysm SAH (subarachnoid hemorrhage) Walking difficulty due to ankle and foot Hammer toe of right foot Tibialis posterior tendinopathy Posterior tibial tendinitis of right lower extremity Brain aneurysm GERD (gastroesophageal reflux disease) Osteoarthritis HLD (hyperlipidemia) Anxiety and depression HTN (hypertension) Home Medications ?Medication ?Instructions ?Recorded ?Last Taken ?Type aspirin 81 mg tablet 81 mg PO DAILY heart health 02/02/21 10/09/24 History letrozole 2.5 mg tablet 2.5 mg PO DAILY 08/25/24 10/10/24 History metformin 500 mg tablet 500 mg PO DAILY diabetes mellitus 08/25/24 Unknown History nortriptyline 50 mg capsule 150 mg PO QHS 08/25/24 10/09/24 History meclizine 25 mg chewable tablet 25 mg PO TID PRN dizziness #10 tabs 09/09/24 Unknown Rx (Antivert) losartan 25 mg tablet 25 mg PO DAILY 10/10/24 10/10/24 History cefdinir 300 mg capsule 300 mg PO BID #6 caps 10/12/24 Unknown Rx Allergy/AdvReac Type Severity Reaction Status Date / Time codeine AdvReac Nausea Verified 09/08/24 22:11 fluoxetine HCl (From Prozac) AdvReac shivers Verified 09/08/24 22:11 morphine AdvReac Nausea Verified 09/08/24 22:11 Family History Mother Breast cancer Hypertension Alzheimers disease Aunt Breast cancer Father CAD (coronary artery disease) Sister Alzheimers disease Other Bleeding disorder Surgical History History of appendectomy S/P coil embolization of cerebral aneurysm History of total knee arthroplasty Hx of craniotomy Cataract extraction status H/O laser iridotomy History of hysterectomy S/P breast lumpectomy S/P coil embolization of cerebral aneurysm Social History household members: none Smoking Status: Never smoker alcohol intake: never substance use type: does not use ROS <Dr. Mikel Bonilla DO - Last Filed: 10/21/24 07:20> ROS ED Constitutional Constitutional ED: Denies chills, fever(s) or sweats Cardiovascular Cardiovascular: Denies chest pain Respiratory/Chest Respiratory/Chest: Denies cough Gastrointestinal Gastrointestinal: Denies abdominal pain, diarrhea, nausea or vomiting Genitourinary Genitourinary ED: Denies dysuria, hematuria or urinary frequency Musculoskeletal Musculoskeletal: Denies back pain, extremity pain or neck pain Integumentary Denies rash or wounds Neurologic Neurologic: Reports weakness; Denies headache(s) or paresthesias EXAM <Dr. Mikel Bonilla DO - Last Filed: 10/21/24 07:20> Physical Exam Const Vital Signs: 10/19/24 12:20 10/19/24 12:28 10/19/24 13:19 Temperature 98.0 F Temperature Source Oral Pulse Rate 84 84 Respiratory Rate 16 Respiratory Effort Normal Blood Pressure 127/50 H 124/81 H Blood Pressure Mean 75 95 Pulse Ox 100 Oxygen Delivery Method Room Air 10/19/24 14:00 10/19/24 15:00 10/19/24 16:00 Temperature 98.2 F 97.8 F Temperature Source Oral Oral Pulse Rate 80 77 76 Respiratory Rate 17 14 13 Respiratory Effort Blood Pressure 135/76 H 157/81 H 164/84 H Blood Pressure Mean 95 106 110 Pulse Ox 100 98 100 Oxygen Delivery Method Room Air Room Air Room Air 10/19/24 17:00 10/19/24 18:00 10/19/24 19:00 Temperature 98.7 F 97.8 F Temperature Source Oral Oral Pulse Rate 79 88 91 Respiratory Rate 24 H 18 18 Respiratory Effort Blood Pressure 162/80 H 153/77 H 143/125 H Blood Pressure Mean 107 102 131 Pulse Ox 100 99 100 Oxygen Delivery Method Room Air Room Air Positive well nourished and well developed General Appearance ED: well developed and NAD HEENT Reports moist mucous membranes normocephalic and atraumatic Eyes General Eye ED: Yes normal appearance of both eyes Neck full ROM Chest Wall Chest: Negative for tenderness Resp normal respiratory effort and normal air movement Effort and Inspection: symmetric chest movement; Negative for respiratory distress Cardio regular rate, regular rhythm and no murmurs Peripheral Pulses: pulses 2+ throughout GI normal to inspection, nondistended, normoactive bowel sounds and non-tender Palpation: Negative for guarding or rebound tenderness present Extremity normal to inspection General Extremety ED: Negative for edema or tenderness General Extremity: Negative for edema Neuro oriented x3 and no sensory deficits noted Neuro Narrative: Patient was alert person place and year however she was slow to respond. Sensorium / Orientation: awake and alert Skin no rashes or lesions noted and no wounds <Dr. Rachele Brian, DO - Last Filed: 10/19/24 20:35> Physical Exam Const Vital Signs: 10/19/24 12:20 10/19/24 12:28 10/19/24 13:19 Temperature 98.0 F Temperature Source Oral Pulse Rate 84 84 Respiratory Rate 16 Respiratory Effort Normal Blood Pressure 127/50 H 124/81 H Blood Pressure Mean 75 95 Pulse Ox 100 Oxygen Delivery Method Room Air 10/19/24 14:00 10/19/24 15:00 10/19/24 16:00 Temperature 98.2 F 97.8 F Temperature Source Oral Oral Pulse Rate 80 77 76 Respiratory Rate 17 14 13 Respiratory Effort Blood Pressure 135/76 H 157/81 H 164/84 H Blood Pressure Mean 95 106 110 Pulse Ox 100 98 100 Oxygen Delivery Method Room Air Room Air Room Air 10/19/24 17:00 10/19/24 18:00 10/19/24 19:00 Temperature 98.7 F 97.8 F Temperature Source Oral Oral Pulse Rate 79 88 91 Respiratory Rate 24 H 18 18 Respiratory Effort Blood Pressure 162/80 H 153/77 H 143/125 H Blood Pressure Mean 107 102 131 Pulse Ox 100 99 100 Oxygen Delivery Method Room Air Room Air MDM <Dr. Mikel Bonilla, DO - Last Filed: 10/21/24 07:20> MDM MDM Narrative Medical decision making narrative: Interventions / MDM: Differential diagnosis: Encephalopathy, fall, weakness Diagnosis considered but do not suspect: Intracranial hemorrhage however CT negative. Pneumonia however x-ray negative. UTI however urine negative. My EKG interpretation: Sinus rhythm of 83, no ST changes. First-degree AV block. Imaging independently reviewed and interpreted by myself: CT brain: No acute process. Chest x-ray no acute process. External documents reviewed: Admission October 10 to for UTI encephalopathy. Test considered but not ordered:N/A ED course: Vital stable nontoxic no signs of injury. There seem to be confusion on exam with recent UTI. Laboratory studies chest x-ray CT brain and urine ordered for evaluation. Patient CT brain negative chest x-ray negative. Labs normal white count normal electrolytes. Urine macrocytic returned negative for leukocytes and nitrites, pending micro. CPK pending. Vitals remained stable. Patient signed out to oncoming physician for disposition plans. Re-evaluation: stable Disposition discussed with patient/family/significant other: Patient Case discussed with consulting clinician: N/A This note was generated with [employer] dictation software. It may contain incorrect words, spelling, and punctuation that were not noted in checking the note before signing. Lab Data Labs: Laboratory Results - last 24 hr 10/19/24 10/19/24 13:40 14:15 WBC 9.5 RBC 4.43 Hgb 13.3 Hct 40.6 MCV 91.6 MCH 30.0 MCHC 32.8 RDW Std Deviation 41.1 RDW Coeff of Meño 12.2 Plt Count 330 MPV 8.4 Immature Gran % (Auto) 0.300 Neut % (Auto) 70.1 H Lymph % (Auto) 18.5 L Whitman % (Auto) 8.1 Eos % (Auto) 2.5 Baso % (Auto) 0.5 Absolute Neuts (auto) 6.7 Absolute Lymphs (auto) 1.76 Nucleated RBC % 0 Sodium 140 Potassium 4.3 Chloride 105 Carbon Dioxide 23.7 Anion Gap 12 BUN 24 H Creatinine 0.97 Estim Creat Clear Calc 43.58 L Est GFR (MDRD) Non-Af 60 BUN/Creatinine Ratio 24.6 H Glucose 109 H Calcium 9.7 Total Creatine Kinase 91 Urine Color Yellow Urine Clarity Cloudy Urine pH 7.0 Ur Specific [place] 1.015 Urine Protein 15 H Urine Glucose (UA) Normal Urine Ketones 5 H Urine Occult Blood Negative Urine Nitrite Negative Urine Bilirubin Negative Urine Urobilinogen Normal Ur Leukocyte Esterase Negative Urine RBC 0-5 SEEN Urine WBC 0-5 SEEN Ur Squamous Epith Cells 0 SEEN Amorphous Sediment 2+ Urine Bacteria 0 SEEN Urine Mucus 0 SEEN Radiography Diagnostic Testing: Clinical Impression(s) from Imaging Studies Chest X-Ray 10/19/24 13:30 IMPRESSION: No acute abnormality is seen. Calcified right-sided pleural plaques. Reading Location: [id number] Brain CT 10/19/24 13:50 IMPRESSION: NO SIGNIFICANT CHANGE SINCE THE PRIOR EXAM no acute abnormality is seen. Reading Location: [id number] Treatment and Re-Evaluation :: Snehal?patient signed out to me pending CPK. This is normal. Urinalysis is not consistent with infection. Patient will be admitted for debility and fall. Case discussed with hospitalist, Dr. Awan. <Dr. Rachele Brian, DO - Last Filed: 10/19/24 20:35> [facility] Lab Data Labs: Laboratory Results - last 24 hr 10/19/24 10/19/24 13:40 14:15 WBC 9.5 RBC 4.43 Hgb 13.3 Hct 40.6 MCV 91.6 MCH 30.0 MCHC 32.8 RDW Std Deviation 41.1 RDW Coeff of Meño 12.2 Plt Count 330 MPV 8.4 Immature Gran % (Auto) 0.300 Neut % (Auto) 70.1 H Lymph % (Auto) 18.5 L Whitman % (Auto) 8.1 Eos % (Auto) 2.5 Baso % (Auto) 0.5 Absolute Neuts (auto) 6.7 Absolute Lymphs (auto) 1.76 Nucleated RBC % 0 Sodium 140 Potassium 4.3 Chloride 105 Carbon Dioxide 23.7 Anion Gap 12 BUN 24 H Creatinine 0.97 Estim Creat Clear Calc 43.58 L Est GFR (MDRD) Non-Af 60 BUN/Creatinine Ratio 24.6 H Glucose 109 H Calcium 9.7 Total Creatine Kinase 91 Urine Color Yellow Urine Clarity Cloudy Urine pH 7.0 Ur Specific [place] 1.015 Urine Protein 15 H Urine Glucose (UA) Normal Urine Ketones 5 H Urine Occult Blood Negative Urine Nitrite Negative Urine Bilirubin Negative Urine Urobilinogen Normal Ur Leukocyte Esterase Negative Urine RBC 0-5 SEEN Urine WBC 0-5 SEEN Ur Squamous Epith Cells 0 SEEN Amorphous Sediment 2+ Urine Bacteria 0 SEEN Urine Mucus 0 SEEN Radiography Diagnostic Testing: Clinical Impression(s) from Imaging Studies Chest X-Ray 10/19/24 13:30 IMPRESSION: No acute abnormality is seen. Calcified right-sided pleural plaques. Reading Location: [id number] Brain CT 10/19/24 13:50 IMPRESSION: NO SIGNIFICANT CHANGE SINCE THE PRIOR EXAM no acute abnormality is seen. Reading Location: [id number] Treatment and Re-Evaluation :: Willie?patient signed out to me pending CPK. This is normal. Urinalysis is not consistent with infection. Patient will be admitted for debility and fall. Case discussed with hospitalist, Dr. Awan. Discharge Plan Dx/Rx/DC Orders Clinical Impression: Generalized weakness, Confusion, Fall Disposition Disposition: Acute Care [facility] Discharge Date/Time: 10/19/24 20:36
[2024-10-19 14:25] LABS: Bacteria 0 SEEN /hpf (None Seen); Mucous, Urine 0 SEEN /hpf (<or=2+); Squamous Epithelial Cells - UA 0 SEEN /hpf (5-10)
[2024-10-19 14:45] LABS: Color, Urine Yellow (Yellow); Glucose, Dipstick Normal (Normal); Ketone-Dipstick 5 mg/dl (Negative); Leukocyte Esterase-Dipstick Negative /ul (Negative); Nitrite-Dipstick Negative (Negative); Occult Blood-Urine Negative /ul (Negative); Protein-Dipstick 15 mg/dl (Negative); Specific Gravity, Urine 1.015 (1.002-1.030); Urine Bilirubin Dipstick Negative (Negative); Urine Clarity Cloudy (Clear); Urine Urobilinogen Normal (Normal)
[2024-10-19 15:38] LABS: Amorphous Sediment 2+
[2024-10-19 15:39] LABS: Red Blood Cells-Urine 0-5 SEEN /hpf (0-5); White Blood Cells 0-5 SEEN /hpf (0-5)
[2024-10-19 16:05] LABS: Anion Gap 12 (5-15); BUN 24 mg/dL (4-19); BUN/Creat Ratio 24.6 RATIO (10-20); Calcium,Total 9.7 mg/dL (7.6-11.0); Carbon Dioxide 23.7 mmol/L (21.0-32.0); Chloride 105 mmol/L (98-108); Creatinine, Serum 0.97 mg/dL (0.70-1.20); EST Glomerular Filtration Rate 60 (>60); Estimated Creatinine Clearance 43.58 ml/min (50-250); Glucose 109 mg/dL (70-99); Potassium 4.3 mmol/L (3.3-5.1); Sodium Level 140 mmol/L (133-145)
[2024-10-19 16:18] LABS: CPK Total, Creatine Kinase 91 U/L (24-195)
--- NOTE | 2024-10-19 17:11 | CM.ED ---
Social Work Jolanta from [facility] called SW and left message regarding patient coming to the ED and asked to be updated on her disposition. Patient was admitted to acute floor after business hours, email sent to Jolanta with update. Apoorva Guzman MSW,[employer]
--- NOTE | 2024-10-19 18:41 | PCM.HP.STD ---
HPI - General General Date of Admission: 10/19/24 Date of Service: 10/19/24 Chief Complaint: Generalized weakness HPI Narrative QUINCY KRAUSE, is a 79-year-old female with history of diabetes, hypertension, anxiety presented [facility] ED 10/19/2024 due to weakness after a fall. Her daughter Sade called for a well check because she lives in [place] and was unable to get hold of her mother. Patient lives alone and ambulates with cane or walker if needed. Today she was on the ground and had a hard time getting up and notes she was on the ground for only about an hour however daughter reports that she has not been able to get a hold of her since yesterday. Patient is more confused compared to baseline. Patient did seem to be confused in the ED as well for ED physician. Patient afebrile, heart rate 84 with a blood pressure 127/58, pulse ox 100% on room air. UA not suggestive of UTI and CBC fairly unremarkable. Chest x-ray with no acute abnormality, head CT with no acute changes. UA did not appear infectious. BMP with a BUN of 24 and creatinine 0.97. CPK of 91. Workup fairly benign however given patient lives alone it was felt it was not safe for her to be discharged. Hospitalist contacted for admission. Patient evaluated at bedside, fairly poor historian but sounds as though she fell this morning was down for 1 or 2 hours per patient. It is unclear if this was mechanical or due to weakness as patient is very poor historian. Only reports she feels somewhat tired overall and feels irritated but she has not been able to eat yet. She reports that she has some dry eyes left greater than right and she has this chronic spot on her left hernandez that will come and go and sometimes itch. Reports that occasionally she will feel short of breath but nothing new, no chest pain. Reports yesterday she felt very hot outside and then felt tired but denies any other new or acute complaints [facility] Medical History Orthostatic hypotension Hoarseness History of stress test Anxiety Depression Migraines Normochromic normocytic anemia Diabetes mellitus type 2 in nonobese Hyponatremia Obstructive hydrocephalus IVH (intraventricular hemorrhage) Infiltrating ductal carcinoma of left breast HTN (hypertension) Brain aneurysm SAH (subarachnoid hemorrhage) Walking difficulty due to ankle and foot Hammer toe of right foot Tibialis posterior tendinopathy Posterior tibial tendinitis of right lower extremity Brain aneurysm GERD (gastroesophageal reflux disease) Osteoarthritis HLD (hyperlipidemia) Anxiety and depression HTN (hypertension) Home Medications ?Medication ?Instructions ?Recorded ?Last Taken ?Type aspirin 81 mg tablet 81 mg PO DAILY heart health 02/02/21 10/09/24 History letrozole 2.5 mg tablet 2.5 mg PO DAILY 08/25/24 10/10/24 History metformin 500 mg tablet 500 mg PO DAILY diabetes mellitus 08/25/24 Unknown History nortriptyline 50 mg capsule 150 mg PO QHS 08/25/24 10/09/24 History meclizine 25 mg chewable tablet 25 mg PO TID PRN dizziness #10 tabs 09/09/24 Unknown Rx (Antivert) losartan 25 mg tablet 25 mg PO DAILY 10/10/24 10/10/24 History cefdinir 300 mg capsule 300 mg PO BID #6 caps 10/12/24 Unknown Rx Allergy/AdvReac Type Severity Reaction Status Date / Time codeine AdvReac Nausea Verified 09/08/24 22:11 fluoxetine HCl (From Prozac) AdvReac shivers Verified 09/08/24 22:11 morphine AdvReac Nausea Verified 09/08/24 22:11 Family History Mother Breast cancer Hypertension Alzheimers disease Aunt Breast cancer Father CAD (coronary artery disease) Sister Alzheimers disease Other Bleeding disorder Surgical History History of appendectomy S/P coil embolization of cerebral aneurysm History of total knee arthroplasty Hx of craniotomy Cataract extraction status H/O laser iridotomy History of hysterectomy S/P breast lumpectomy S/P coil embolization of cerebral aneurysm Social History household members: none Smoking Status: Never smoker alcohol intake: never substance use type: does not use ROS ROS Narrative General: Denies fever/chills HENT: Denies headache, denies stuffy nose, denies sore throat EYES: Has some dry eyes Resp: Denies cough, denies shortness of breath Cardiac: Denies chest pain GI: Denies abdominal pain, denies changes in bowel, denies nausea/vomiting : Denies changes in urination Extremity: Denies swelling MSK: General Weakness Neuro: Denies any numbness/tingling Heme: Denies any new significant bleeding or bruising Skin: Little spot on anterior left hernandez which is not new Psychiatric: Irritated because she has not been able to eat yet Vital Signs Vital Signs Vital Signs: 10/19/24 12:20 10/19/24 12:28 10/19/24 13:19 Temperature 98.0 F Temperature Source Oral Pulse Rate 84 84 Respiratory Rate 16 Respiratory Effort Normal Blood Pressure 127/50 H 124/81 H Blood Pressure Mean 75 95 Pulse Ox 100 Oxygen Delivery Method Room Air 10/19/24 14:00 10/19/24 15:00 10/19/24 16:00 Temperature 98.2 F 97.8 F Temperature Source Oral Oral Pulse Rate 80 77 76 Respiratory Rate 17 14 13 Respiratory Effort Blood Pressure 135/76 H 157/81 H 164/84 H Blood Pressure Mean 95 106 110 Pulse Ox 100 98 100 Oxygen Delivery Method Room Air Room Air Room Air 10/19/24 17:00 Temperature Temperature Source Pulse Rate 79 Respiratory Rate 24 H Respiratory Effort Blood Pressure 162/80 H Blood Pressure Mean 107 Pulse Ox 100 Oxygen Delivery Method Weight Weight: 65.8 kg Body Mass Index (BMI) 25.7 Physical Exam Narrative General: Patient did answer orientation questions appropriately but was very poor historian and seemed and was little confused at times HEENT: Atraumatic, normocephalic Eyes: Anicteric, normal conjunctiva, extraocular movements grossly intact Neck: Supple Respiratory: Clear to auscultation bilaterally, normal respiratory effort Cardiovascular: Regular rate and rhythm GI: Soft, nontender, nondistended Extremities: No edema Musculoskeletal: Moving all extremities Neuro: No overt focal neurological deficits Skin: Small anterior scab on left hernandez, no bleeding Psych: Somewhat irritable but overall cooperative Results Lab / Micro Data 10/19/24 13:40 10/19/24 13:40 Labs: Laboratory Results - last 24 hr 10/19/24 13:40: WBC 9.5, RBC 4.43, Hgb 13.3, Hct 40.6, MCV 91.6, MCH 30.0, MCHC 32.8, RDW Std Deviation 41.1, RDW Coeff of Meño 12.2, Plt Count 330, MPV 8.4, Immature Gran % (Auto) 0.300, Neut % (Auto) 70.1 H, Lymph % (Auto) 18.5 L, [place] % (Auto) 8.1, Eos % (Auto) 2.5, Baso % (Auto) 0.5, Absolute Neuts (auto) 6.7, Absolute Lymphs (auto) 1.76, Nucleated RBC % 0, Sodium 140, Potassium 4.3, Chloride 105, Carbon Dioxide 23.7, Anion Gap 12, BUN 24 H, Creatinine 0.97, Estim Creat Clear Calc 43.58 L, Est GFR (MDRD) Non-Af 60, BUN/Creatinine Ratio 24.6 H, Glucose 109 H, Calcium 9.7, Total Creatine Kinase 91 10/19/24 14:15: Urine Color Yellow, Urine Clarity Cloudy, Urine pH 7.0, Ur Specific [place] 1.015, Urine Protein 15 H, Urine Glucose (UA) Normal, Urine Ketones 5 H, Urine Occult Blood Negative, Urine Nitrite Negative, Urine Bilirubin Negative, Urine Urobilinogen Normal, Ur Leukocyte Esterase Negative, Urine RBC 0-5 SEEN, Urine WBC 0-5 SEEN, Ur Squamous Epith Cells 0 SEEN, Amorphous Sediment 2+, Urine Bacteria 0 SEEN, Urine Mucus 0 SEEN Imaging Radiology Impression Chest X-Ray 10/19/24 13:30 IMPRESSION: No acute abnormality is seen. Calcified right-sided pleural plaques. Reading Location: [facility] Brain CT 10/19/24 13:50 IMPRESSION: NO SIGNIFICANT CHANGE SINCE THE PRIOR EXAM no acute abnormality is seen. Reading Location: [facility] Assessment & Plan Assessment/Plan (1) Generalized weakness: PLAN: Plan # Generalized weakness, ?confusion - Patient is able to answer orientation questions but does seem a little bit confused, is very poor historian - Hold nortriptyline - Unclear if patient may have taken any Antivert as it is on her medicine list and this could contribute to confusion and falls - Will check UDS - IV fluids - CT of the brain on presentation no acute process - Will check ammonia and B12 #Type 2 diabetes mellitus -Glucose checks and sliding scale insulin #Hypertension -given slight increase in BUN and creatinine (does not meet criteria for JUDSON) patient will be given IV fluids and will hold losartan at this time - Will add as needed in the interim #DVT ppx: SCDs Desiree Awan MD Charges/Coding Visit Charges Inpatient E&M: 64780 Init Hosp L2
[2024-10-19 20:43] LABS: Amphetamine Urine NEGATIVE (<1000 ng/mL); Barbiturate Urine NEGATIVE (< 200 ng/mL); Benzodiazepine Urine NEGATIVE (< 200 ng/mL); Buprenorphine Urine NEGATIVE (< 200 ng/mL); Cocaine Urine NEGATIVE (< 300 ng/mL); Fentanyl, Urine NEGATIVE; Methadone Urine NEGATIVE (< 300 ng/mL); Opiates Urine NEGATIVE (< 300 ng/mL); Oxycodone, Urine NEGATIVE (< 100 ng/mL); PCP Urine NEGATIVE (< 25 ng/mL); THC Urine NEGATIVE (< 50 ng/mL)
[2024-10-19 22:21] LABS: Vitamin B12 725 pg/mL (180-914)
--- OUTSIDE RECORDS SUMMARY | 2024-10-19 22:34 | XMS RPT_ITS | CCD ---
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 extremity (20 sources) Venous varices; Translations: [Varicose veins of other sites] Resolved: 10-21-2014 10-21-2014 Episodic Results Test Name Value Interpretation Reference Range Facility Absolute lymphocyte countOrd ered By: Mikel Bonilla on 10-19-2024 Lymphocytes Auto (Unsp spec) [#/Vol] 1.76 10*3/uL 0.83-4.51 [facility] Absolute neutrophil countOrd ered By: Mikel Bonilla on 10-19-2024 Neutrophils (Bld) [#/Vol] 6.7 10*3/uL 2.0-7.7 [facility] Amorphous sediment detection in urine sediment by light microscopyOrdered By: Mikel Bonilla on 10-19-2024 Amorphous sediment LM Ql (Urine sed) 2+ [facility] Anion gap in Serum or Plasma Ordered By: Mikel Bonilla on 10-19-2024 Anion gap [Moles/Vol] 12 mmol/L 5-15 [facility] Automated lymphocyte count a s percentage of total leukocytesOrdered By: Mikel Bonilla on 10-19-2024 Lymphocytes/100 WBC Auto (Unsp spec) 18.5 % Low 19-41 [facility] BUN/creatinine ratioOrdered By: Mikel Bonilla on 10-19-2024 Urea nitrogen/Creatinine [Mass ratio] 24.6 mg/mg High 10-20 [facility] Basophil percentageOrdered B y: Mikel Irene on 10-19-2024 Basophils/100 WBC (Bld) 0.5 % 0-[address] [facility] Bilirubin Test strip Ql (U)O rdered By: Mikel Irene on 10-19-2024 Bilirubin Ql (U) Negative Negative [facility] Carbon dioxide, total [Moles /volume] in Central venous bloodOrdered By: Mikel Le on 10-19-2024 CO2 [Moles/Vol] 23.7 mmol/L 21.0-32.0 [facility] Chloride assayOrdered By: Nando Bonilla on 10-19-2024 Chloride [Moles/Vol] 105 mmol/L 98-108 [facility] Electrocardiogram reportOrde red By: Jone Fishman on 10-19-2024 EKG study [facility] Cardiovascular Services [address] [place] [address] 12 Lead EKG 10/19/24 1345 MR#: [id number] Acct: [id number] Name: JUDI KRAUSE Rep #:[id number] : 1945 79 From: Jone Fishman MD Attending Dr: Status: REG E R Ordering Dr: Mikel Bonilla DO Date: 5 Location: ED Sex: F C Admitted: Test Reason : CONFUSION Blood Pressure : */* mmHG Vent. Rate : 83 BPM Atrial Rate : 83 BPM P-R Int : 218 ms QRS Dur : 98 ms QT Int : 376 ms P-R-T Axes : 42 -8 59 degrees QTcB Int : 441 ms Sinus rhythm with 1st degree A-V block Otherwise normal ECG When compared with ECG of 10-Oct-2024 14:29, [place] interval has increased Confirmed by JONE FISHMAN MD ([id number]), associate editor DONITA CARPENTER ([id number]) on 10/19/2024 1:56:09 PM Referred By: Confirmed By: JONE FISHMAN MD 10/19/24 8876 Date _ Jone Fishman MD CC: Dr. Ruddy Cooper MD; Dr. Mikel Bonilla, DO ~ Signed [facility] Other Phone: Eosinophil percentageOrdered By: Mikel Bonilla on 10-19-2024 Eosinophils/100 WBC (Bld) 2.5 % 0-5 [facility] Erythrocyte distribution wid th ratioOrdered By: Mikel Bonilla on 10-19-2024 Erythrocyte distribution width (RBC) [Ratio] 12.2 % 11.6-14.6 [facility] Erythrocyte distribution wid th standard deviationOrdered By: Mikel Bonilla on 10-19-2024 Erythrocyte distribution width (RBC) [Ratio] 41.1 fl 35.1-43.9 [facility] Glomerular filtration rate ( GFR) estimation/1.73 sq m using serum, plasma, or whole bOrdered By: Mikel Bonilla on 10-19-2024 GFR/1.73 sq M.predicted among non-blacks MDRD (S/P/Bld) [Vol rate/Area] 60 mL/min/{1.73_m2} >60 [facility] Comment on above: mL/min/1.73m2 CKD-EP I Creatinine Equation (2020) Hematocrit Auto (Bld) [Volum e fraction]Ordered By: Mikel Bonilla on 10-19-2024 Hematocrit (Bld) [Volume fraction] 40.6 % 37-47 [facility] Hemoglobin measurementOrdere d By: Mikel Bonilla on 10-19-2024 Hemoglobin (Bld) [Mass/Vol] 13.3 g/dL 12.0-15.0 [facility] Immature granulocytes/100 WB C Auto (Bld)Ordered By: Mikel Bonilla on 10-19-2024 Immature granulocytes/100 WBC (Bld) 0.300 % 0.0-0.9 [facility] Comment on above: IG% - Immature Granu locytes (promyelocytes, myelocytes and metamyelocytes) > 1% indicates that a LEFT SHIFT is Present. Ketones Test strip Ql (U)Ord ered By: Mikel Bonilla on 10-19-2024 Ketones Ql (U) 5 mg/dl High Negative [facility] MCV (mean corpuscular volume ) determinationOrdered By: Mikel Bonilla on 10-19-2024 MCV (RBC) [Entitic vol] 91.6 fL 81-99 [facility] Mean corpuscular hemoglobin (MCH) determinationOrdered By: Mikel Bonilla on 10-19-2024 MCH (RBC) [Entitic mass] 30.0 pg 27.0-32.0 [facility] Mean corpuscular hemoglobin concentration (MCHC) determinationOrdered By: Mikel Bonilla on 10-19-2024 MCHC (RBC) [Mass/Vol] 32.8 g/dL 32-36 [facility] Mean platelet volume determi nationOrdered By: Mikel Bonilla on 10-19-2024 Platelet mean volume (Bld) [Entitic vol] 8.4 fL 6.2-12.0 [facility] Microscopic analysis of urin e for red blood cells (RBC)Ordered By: Mikel Bonilla on 10-19-2024 Microscopic analysis of urine for red blood cells (RBC) 0-5 SEEN /hpf 0-5 [facility] Monocyte percentageOrdered B y: Mikel Bonilla on 10-19-2024 Monocytes/100 WBC (Bld) 8.1 % 0-[address] [facility] Mucus LM Ql (Urine sed)Order ed By: Mikel Bonilla on 10-19-2024 Mucus Ql (Urine sed) 0 SEEN /hpf [facility] Neutrophil percentageOrdered By: Mikel Bonilla on 10-19-2024 Neutrophils/100 WBC (Bld) 70.1 % High 47-70 [facility] Nitrite Test strip Ql (U)Ord ered By: Mikel Bonilla on 10-19-2024 Nitrite Ql (U) Negative Negative [facility] Nucleated red blood cell per centageOrdered By: Mikel Bonilla on 10-19-2024 Nucleated RBC/100 WBC (Bld) [Ratio] 0 % 0-5 [facility] Platelet countOrdered By: Nando Bonilla on 10-19-2024 Platelets (Bld) [#/Vol] 330 10*3/uL 150-450 [facility] Potassium measurement (mass/ volume)Ordered By: Mikel Bonilla on 10-19-2024 Potassium (Unsp spec) [Mass/Vol] 4.3 mmol/L 3.3-5.1 [facility] Comment on above: Hemolysis present, R esults could be affected. Protein Test strip Ql (U)Ord ered By: Mikel Bonilla on 10-19-2024 Protein Ql (U) 15 mg/dl High Negative [facility] RBC Auto (Bld) [#/Vol]Ordere d By: Mikel Bonilla on 10-19-2024 RBC (Bld) [#/Vol] 4.43 10*6/uL 4.2-5.4 [facility] Serum creatinine measurement (mass/volume)Ordered By: Mikel Bonilla on 10-19-2024 Creatinine [Mass/Vol] 0.97 mg/dL 0.70-1.20 [facility] Serum glucose measurement (m ass/volume)Ordered By: Mikel Bonilla on 10-19-2024 Glucose [Mass/Vol] 109 mg/dL High 70-99 [facility] Serum or plasma calcium rodríguez urement (mass/volume)Ordered By: Mikel Bonilla on 10-19-2024 Calcium [Mass/Vol] 9.7 mg/dL 7.6-11.0 [facility] Serum or plasma creatine kin ase activityOrdered By: Mikel Bonilla on 10-19-2024 CK [Catalytic activity/Vol] 91 U/L 24-195 [facility] Serum or plasma urea nitroge n measurement (mass/volume)Ordered By: Mikel Bonilla on 10-19-2024 Urea nitrogen [Mass/Vol] 24 mg/dL High 4-19 [facility] Sodium levelOrdered By: Mikel Bonlila on 10-19-2024 Sodium [Moles/Vol] 140 mmol/L 133-145 [facility] Squamous epithelial cells de tection in urine sediment by light microscopyOrdered By: Mikel Bonilla on 10-19-2024 Epithelial cells.squamous LM Ql (Urine sed) 0 SEEN /hpf 5-10 [facility] Urine clarityOrdered By: Giles Bonilla on 10-19-2024 Clarity (U) Cloudy Clear [facility] Urine color determinationOrd ered By: Mikel Bonilla on 10-19-2024 Color (U) Yellow Yellow [facility] Urine glucose detectionOrder ed By: Mikel Bonilla on 10-19-2024 Glucose Ql (U) Normal mg/dl Normal [facility] Urine leukocyte esterase det ection by dipstickOrdered By: Mikel Bonilla on 10-19-2024 Leukocyte esterase Test strip Ql (U) Negative Negative [facility] Urine pHOrdered By: Mikel Bonilla on 10-19-2024 pH (U) 7.0 [pH] 5.0 - 8.0 [facility] Urine sediment bacteria coun t by microscopy (number/high power field)Ordered By: Mikel Bonilla on 10-19-2024 Bacteria LM.HPF (Urine sed) [#/Area] 0 /[HPF] None Seen [facility] Urine specific gravity measu rementOrdered By: Mikel Bonilla on 10-19-2024 Specific gravity (U) [Rel density] 1.015 1.002-1.030 [facility] Urine urobilinogen measureme ntOrdered By: Mikel Bonilla on 10-19-2024 Urobilinogen Ql (U) Normal mg/dl Normal [facility] White blood cell (WBC) count Ordered By: Mikel Bonilla on 10-19-2024 WBC (Bld) [#/Vol] 9.5 10*3/uL 4.4-11.0 [facility] White blood cell countOrdere d By: Mikel Bonilla on 10-19-2024 White blood cell count 0-5 SEEN /hpf 0-5 [facility] Culture, Blood (WB)on 2024 CUB Blood cultures x2, from two different sites No growth in 5 days. Normal [facility] Comment on above: Performed By: #### L 501.080 #### [facility] Laboratory [address] [facility] [id number] Bedside Glucoseon 10-12-2024 FINGERSTICK GLU 128 mg/dL High 74-106 [facility] Comment on above: Result Comment: SAMANTA GEMENT OF PATIENT CARE PER NURSING PROTOCOL Performed By: #### L 100.0500 #### [facility] [address] [facility] [address] FINGERSTICK GLU 115 mg/dL High 74-106 [facility] Comment on above: Result Comment: SAMANTA GEMENT OF PATIENT CARE PER NURSING PROTOCOL Performed By: #### L 100.0500 #### [facility] Laboratory [address] [facility] [address] Discharge Instructionon 09-26 Discharge Instruction [facility] Medical Records Department [address] [address] Instructions for Home/Discharge Instructions 10/12/24 1254 MR#: [id number] Acct: [id number] Name: JUDI KRAUSE Rep #: [id number] : 1945 79 From: Luis Baer MD PCP: Dr. Ruddy Cooper MD Status:ADM IN Discharge Instructions Diet Discharge Diet: No restrictions DC O2, CPAP, BIPAP needs Home O2 Discharge instructions: No Dressing / Incision Discharge Activity: Return to Normal Activity Dressing / Incision Call your doctor if you observe: Fever of 101 or Higher, Shortness of breath, Dizziness, Fainting spells, Swelling in the ankles, Chest pain and Increased palpitations (irregular heartbeat) Follow Up Care Test Results: Test results from this visit will be discussed in further detail at your follow-up appointment, if applicable. Discharge Plan Admission Admit Date/Time: 10/10/24 16:33 Attending Provider: Luis Baer Primary Care Provider: Ruddy Cooper Discharge Orders/Prescriptions Prescriptions: New cefdinir 300 mg capsule 300 mg PO BID Qty: 6 0RF Continued aspirin 81 mg Tablet 81 mg PO DAILY metformin 500 mg tablet 500 mg PO DAILY letrozole 2.5 mg tablet 2.5 mg PO DAILY nortriptyline 50 mg capsule 150 mg PO QHS meclizine [Antivert] 25 mg tablet,chewable 25 mg PO TID PRN (Reason: dizziness) Qty: 10 0RF Patient Comments: Per daughter, takes as needed. Rx Instructions: Use if having dizziness. losartan 25 mg tablet 25 mg PO DAILY Referrals / Follow Up: Ruddy Cooper MD [Primary Care Provider] - Within 1 Week Disposition Disposition (needs filled in before D/C Order can be placed): Home, Self Care 10/12/24 1314 Luis Baer MD CC: Dr. Ruddy Cooper MD Signed Normal [facility] Electrocardiogram reportOrde red By: Jone Fishman on 10-12-2024 EKG study [facility] Cardiovascular Services [address] [place] [address] 12 Lead EKG 10/10/24 1429 MR#: [id number] Acct: [id number] Name: JUDI KRAUSE Rep #:[id number] : 1945 79 From: Jone Fishman MD Attending Dr: Dr. Luis Baer MD Status: ADM IN Ordering Dr: Jose Dodd DO Date: 0 10/10/24 Location: WA3 Sex: F C Admitted: 10/10/24 Test Reason : CONFUSION Blood Pressure : */* mmHG Vent. Rate : 92 BPM Atrial Rate : 92 BPM P-R Int : 184 ms QRS Dur : 84 ms QT Int : 336 ms P-R-T Axes : 49 -29 54 degrees QTcB Int : 415 ms Normal sinus rhythm Normal ECG Confirmed by RAFAEL TAVERA, JONE ([id number]), associate editor APURVA CAMEJO ([id number]) on 57:45:26 AM Referred By: Confirmed By: JONE FISHMAN MD 10/12/24 0745 Date _ Jone Fishman MD CC: Dr. Jose Dodd DO; Dr. Ruddy Cooper MD; Dr. Luis Baer MD~ Signed [facility] Other Phone: [facility] deOrdered By: Luis Baer on 10-12-2024 Glucose [Mass/Vol] 128 mg/dL High 74-106 [facility] Comment on above: MANAGEMENT OF PATIEN T CARE PER NURSING PROTOCOL Urine Cultureon 10-12-2024 URC Escherichia coli [place] Count >100,000 Escherichia coli: REACTION Ampicillin Islt [place] <=2 Ampicillin+Sulbac Islt [place] <=2 S Cefepime Islt [place] <=0.12 S cefTRIAXone Islt [place] <=0.25 S Ciprofloxacin Islt [place] <=0.06 S B-Lactamase Extended Susc Islt NEG Gentamicin Islt [place] <=1 S levoFLOXacin Islt [place] <=0.12 S Meropenem Islt [place] <=0.25 S Nitrofurantoin Islt [place] <=16 S Pip+Tazo Islt [place] <=4 S TMP SMX Islt [place] <=20 S Normal [facility] Comment on above: Performed By: #### L 100.0100, L500.2500 #### [facility] [address] [place], [address] Absolute lymphocyte countOrd ered By: Luis Baer on 10-11-2024 Lymphocytes Auto (Unsp spec) [#/Vol] 1.75 10*3/uL 0.83-4.51 [facility] Absolute neutrophil countOrd ered By: Luis Baer on 10-11-2024 Neutrophils (Bld) [#/Vol] 3.6 10*3/uL 2.0-7.7 [facility] Anion gap in Serum or Plasma Ordered By: Luis Baer on 10-11-2024 Anion gap [Moles/Vol] 12 mmol/L 5-15 [facility] Automated lymphocyte count a s percentage of total leukocytesOrdered By: Luis Baer on 10-11-2024 Lymphocytes/100 WBC Auto (Unsp spec) 28.2 % 19-41 [facility] BUN/creatinine ratioOrdered By: Luis Baer on 10-11-2024 Urea nitrogen/Creatinine [Mass ratio] 20.1 mg/mg High - [facility] Basic Metabolic Profile (BMP )on 10-11-2024 BUN/CRE 20.1 RATIO High 10- [facility] Comment on above: Performed By: #### L 501.080 #### [facility] [address] [place], [address] Calcium [Mass/Vol] 8.3 mg/dL Normal 7.6-11.0 [facility] Comment on above: Performed By: #### L 501.080 #### [facility] [address] [place], [address] Chloride [Moles/Vol] 107 mmol/L Normal 98-108 [facility] Comment on above: Performed By: #### L 501.080 #### [facility] [address] [place], [address] CO2 [Moles/Vol] 20.5 mmol/L Low 21.0-32.0 [facility] Comment on above: Performed By: #### L 501.080 #### [facility] [address] [place], [address] Creatinine [Mass/Vol] 0.81 mg/dL Normal 0.70-1.20 [facility] Comment on above: Performed By: #### L 501.080 #### [facility] [address] [place], [address] ECRCL 52.16 ml/min Normal 50-250 [facility] Comment on above: Performed By: #### L 501.080 #### [facility] [address] [place], [address] GAP 12 Normal 5-15 [facility] Comment on above: Performed By: #### L 501.080 #### [facility] [address] [place], [address] GFR/1.73 sq M.predicted among non-blacks MDRD (S/P/Bld) [Vol rate/Area] 75 mL/min/{1.73_m2} Normal >60 [facility] Comment on above: Result Comment: mL/m in/1.73m2 CKD-EPI Creatinine Equation (2020) Performed By: #### L 501.080 #### [facility] [address] [place], [address] Glucose [Mass/Vol] 113 mg/dL High 70-99 [facility] Comment on above: Performed By: #### L 501.080 #### [facility] [address] [place], [address] Potassium [Moles/Vol] 4.3 mmol/L Normal 3.3-5.1 [facility] Comment on above: Performed By: #### L 501.080 #### [facility] [address] [place], [address] Sodium [Moles/Vol] 139 mmol/L Normal 133-145 [facility] Comment on above: Performed By: #### L 501.080 #### [facility] [address] [place], [address] Urea nitrogen [Mass/Vol] 16 mg/dL Normal 4-19 [facility] Comment on above: Performed By: #### L 501.080 #### [facility] [address] [place], [address] Basophil percentageOrdered B y: Luis Baer on 10-11-2024 Basophils/100 WBC (Bld) 0.5 % 0-1 [facility] Bedside Glucoseon 10-11-2024 FINGERSTICK GLU 158 mg/dL High 74-106 [facility] Comment on above: Result Comment: SAMANTA GEMENT OF PATIENT CARE PER NURSING PROTOCOL Performed By: #### L 501.080 #### [facility] [address] [place], [address] FINGERSTICK GLU 100 mg/dL Normal 74-106 [facility] Comment on above: Result Comment: SAMANTA GEMENT OF PATIENT CARE PER NURSING PROTOCOL Performed By: #### L 501.080 #### [facility] [address] [place], [address] FINGERSTICK GLU 205 mg/dL High 74-106 [facility] Comment on above: Result Comment: SAMANTA GEMENT OF PATIENT CARE PER NURSING PROTOCOL Performed By: #### L 501.080 #### [facility] [address] [place], [address] FINGERSTICK GLU 113 mg/dL High 74-106 [facility] Comment on above: Result Comment: SAMANTA CHEEMA OF PATIENT CARE PER NURSING PROTOCOL Performed By: #### L 501.080 #### [facility] [address] [place], [address] CBC W/Diff, Automatedon - Absolute Lymph 1.75 X10 3/uL Normal 0.83-4.51 [facility] Comment on above: Performed By: #### L 501.080 #### [facility] [address] [place], [address] Absolute Neut 3.6 X10 3/uL Normal 2.0-7.7 [facility] Comment on above: Performed By: #### L 501.080 #### [facility] [address] [place], [address] Basophils/100 WBC (Bld) 0.5 % Normal 0-[address] [facility] Comment on above: Performed By: #### L 501.080 #### [facility] [address] [place], [address] Eosinophils/100 WBC (Bld) 5.2 % High 0-5 [facility] Comment on above: Performed By: #### L 501.080 #### [facility] [address] [place], [address] Erythrocyte distribution width (RBC) [Ratio] 12.0 % Normal 11.6-14.6 [facility] Comment on above: Performed By: #### L 501.080 #### [facility] [address] [place], [address] Hematocrit (Bld) [Volume fraction] 36.5 % Low 37-47 [facility] Comment on above: Performed By: #### L 501.080 #### [facility] [address] [place], [address] Hemoglobin (Bld) [Mass/Vol] 11.9 g/dL Low 12.0-15.0 [facility] Comment on above: Performed By: #### L 501.080 #### [facility] [address] [place], [address] IG% 0.200 Normal 0.0-0.9 [facility] Comment on above: Result Comment: IG% - Immature Granulocytes (promyelocytes, myelocytes and metamyelocytes) > 1% indicates that a LEFT SHIFT is Present. Performed By: #### L 501.080 #### [facility] [address] [place], [address] Lymphocytes/100 WBC (Bld) 28.2 % Normal 19-41 [facility] Comment on above: Performed By: #### L 501.080 #### [facility] [address] [place], [address] MCH (RBC) [Entitic mass] 30.1 pg Normal 27.0-32.0 [facility] Comment on above: Performed By: #### L 501.080 #### [facility] [address] [place], [address] MCHC (RBC) [Mass/Vol] 32.6 g/dL Normal 32-36 [facility] Comment on above: Performed By: #### L 501.080 #### [facility] [address] [place], [address] MCV (RBC) [Entitic vol] 92.2 fL Normal 81-[address] [facility] Comment on above: Performed By: #### L 501.080 #### [facility] [address] [place], [address] Monocytes/100 WBC (Bld) 8.5 % Normal 0-[address] [facility] Comment on above: Performed By: #### L 501.080 #### [facility] [address] [place], [address] Neutrophils/100 WBC (Bld) 57.4 % Normal 47-70 [facility] Comment on above: Performed By: #### L 501.080 #### [facility] [address] [place], [address] Nucleated RBC (Bld) [#/Vol] 0 10*3/uL Normal 0-5 [facility] Comment on above: Performed By: #### L 501.080 #### [facility] [address] [place], [address] Platelet mean volume (Bld) [Entitic vol] 8.3 fL Normal 6.2-12.0 [facility] Comment on above: Performed By: #### L 501.080 #### [facility] [address] [place], [address] Platelets (Bld) [#/Vol] 284 10*3/uL Normal 150-450 [facility] Comment on above: Performed By: #### L 501.080 #### [facility] [address] [place], [address] RBC (Bld) [#/Vol] 3.96 10*6/uL Low 4.2-5.4 [facility] Comment on above: Performed By: #### L 501.080 #### [facility] [address] [place], [address] RDW SD 40.9 fl Normal 35.1-43.9 [facility] Comment on above: Performed By: #### L 501.080 #### [facility] [address] [place], [address] WBC (Bld) [#/Vol] 6.2 10*3/uL Normal 4.4-11.0 [facility] Comment on above: Performed By: #### L 501.080 #### [facility] [address] [place], [address] Carbon dioxide, total [Moles /volume] in Central venous bloodOrdered By: Luis Baer on 10-11-2024 CO2 [Moles/Vol] 20.5 mmol/L Low 21.0-32.0 [facility] Chloride assayOrdered By: Haley Baer on 10-11-2024 Chloride [Moles/Vol] 107 mmol/L 98-108 [facility] Eosinophil percentageOrdered By: Luis Baer on 10-11-2024 Eosinophils/100 WBC (Bld) 5.2 % High 0-5 [facility] Erythrocyte distribution wid th ratioOrdered By: Luis Baer on 10-11-2024 Erythrocyte distribution width (RBC) [Ratio] 12.0 % 11.6-14.6 [facility] Erythrocyte distribution wid th standard deviationOrdered By: Luis Baer on 10-11-2024 Erythrocyte distribution width (RBC) [Ratio] 40.9 fl 35.1-43.9 [facility] Glomerular filtration rate ( GFR) estimation/1.73 sq m using serum, plasma, or whole bOrdered By: Luis Baer on 10-11-2024 GFR/1.73 sq M.predicted among non-blacks MDRD (S/P/Bld) [Vol rate/Area] 75 mL/min/{1.73_m2} >60 [facility] Comment on above: mL/min/1.73m2 CKD-EP I Creatinine Equation (2020) Hematocrit Auto (Bld) [Volum e fraction]Ordered By: Luis Baer on 10-11-2024 Hematocrit (Bld) [Volume fraction] 36.5 % Low 37-47 [facility] Hemoglobin measurementOrdere d By: uLis Baer on 10-11-2024 Hemoglobin (Bld) [Mass/Vol] 11.9 g/dL Low 12.0-15.0 [facility] Immature granulocytes/100 WB C Auto (Bld)Ordered By: Luis Baer on 10-11-2024 Immature granulocytes/100 WBC (Bld) 0.200 % 0.0-0.9 [facility] Comment on above: IG% - Immature Granu locytes (promyelocytes, myelocytes and metamyelocytes) > 1% indicates that a LEFT SHIFT is Present. MCV (mean corpuscular volume ) determinationOrdered By: Luis Baer on 10-11-2024 MCV (RBC) [Entitic vol] 92.2 fL 81-[address] [facility] Mean corpuscular hemoglobin (MCH) determinationOrdered By: Luis Baer on 10-11-2024 MCH (RBC) [Entitic mass] 30.1 pg 27.0-32.0 [facility] Mean corpuscular hemoglobin concentration (MCHC) determinationOrdered By: Luis Baer on 10-11-2024 MCHC (RBC) [Mass/Vol] 32.6 g/dL 32-36 [facility] Mean platelet volume determi nationOrdered By: Luis Baer on 10-11-2024 Platelet mean volume (Bld) [Entitic vol] 8.3 fL 6.2-12.0 [facility] Monocyte percentageOrdered B y: Luis Baer on 10-11-2024 Monocytes/100 WBC (Bld) 8.5 % 0-[address] [facility] Neutrophil percentageOrdered By: Luis Baer on 10-11-2024 Neutrophils/100 WBC (Bld) 57.4 % 47-70 [facility] Nucleated red blood cell per centageOrdered By: Luis Baer on 10-11-2024 Nucleated RBC/100 WBC (Bld) [Ratio] 0 % 0-5 [facility] Platelet countOrdered By: Haley Baer on 10-11-2024 Platelets (Bld) [#/Vol] 284 10*3/uL 150-450 [facility] Potassium measurement (mass/ volume)Ordered By: Luis Baer on 10-11-2024 Potassium (Unsp spec) [Mass/Vol] 4.3 mmol/L 3.3-5.1 [facility] RBC Auto (Bld) [#/Vol]Ordere d By: Luis Baer on 10-11-2024 RBC (Bld) [#/Vol] 3.96 10*6/uL Low 4.2-5.4 [facility] Serum creatinine measurement (mass/volume)Ordered By: Luis Baer on 10-11-2024 Creatinine [Mass/Vol] 0.81 mg/dL 0.70-1.20 [facility] Serum glucose measurement (m ass/volume)Ordered By: Luis Baer on 10-11-2024 Glucose [Mass/Vol] 113 mg/dL High 70-99 [facility] Serum or plasma calcium rodríguez urement (mass/volume)Ordered By: Luis Baer on 10-11-2024 Calcium [Mass/Vol] 8.3 mg/dL 7.6-11.0 [facility] Serum or plasma urea nitroge n measurement (mass/volume)Ordered By: Luis Baer on 10-11-2024 Urea nitrogen [Mass/Vol] 16 mg/dL 4-19 [facility] Sodium levelOrdered By: Oliver Baer on 10-11-2024 Sodium [Moles/Vol] 139 mmol/L 133-145 [facility] White blood cell (WBC) count Ordered By: Luis Baer on 10-11-2024 WBC (Bld) [#/Vol] 6.2 10*3/uL 4.4-11.0 [facility] 12 Lead EKGon 10-10-2024 12 Lead EKG [facility] Cardiovascular Services [address] [place] [address] 12 Lead EKG 10/10/24 1429 MR#: [id number] Acct: [id number] Name: JUDI KRAUSE Rep #: [id number] : 1945 79 From: Jone Fishman MD Attending Dr: Dr. Luis Baer MD Status : ADM IN Ordering Dr: Jose Dodd DO Date: 10/10/24 [place] [facility] [place]: F C Admitted: 10/10/24 Test Reason : CONFUSION Blood Pressure : */* mmHG Vent. Rate : 92 BPM Atrial Rate : 92 BPM P-R Int : 184 ms QRS Dur : 84 ms QT Int : 336 ms P-R-T Axes : 49 -29 54 degrees QTcB Int : 415 ms Normal sinus rhythm Normal ECG Confirmed by JONE FISHMAN MD ([id number]), associate editor APURVA CAMEJO ([id number]) on 10/12/2024 7:45:26 AM Referred By: Confirmed By: JONE FISHMAN MD 10/12/24 0745 Date Jone Fishman MD CC: Dr. Jose Dodd DO; Dr. Ruddy Cooper MD; Dr. Luis Baer MD Signed Normal [facility] Absolute lymphocyte countOrd ered By: Jose Dodd on 10-10-2024 Lymphocytes Auto (Unsp spec) [#/Vol] 1.47 10*3/uL 0.83-4.51 [facility] Absolute neutrophil countOrd ered By: Jose Dodd on 10-10-2024 Neutrophils (Bld) [#/Vol] 3.9 10*3/uL 2.0-7.7 [facility] Amorphous sediment detection in urine sediment by light microscopyOrdered By: Jose Dodd on 10-10-2024 Amorphous sediment LM Ql (Urine sed) 3+ [facility] Anion gap in Serum or Plasma Ordered By: Jose Dodd on 10-10-2024 Anion gap [Moles/Vol] 11 mmol/L 09-09 [facility] Automated lymphocyte count a s percentage of total leukocytesOrdered By: Jose Dodd on 10-10-2024 Lymphocytes/100 WBC Auto (Unsp spec) 23.5 % 19- [facility] BUN/creatinine ratioOrdered By: Jose Dodd on 10-10-2024 Urea nitrogen/Creatinine [Mass ratio] 19.9 mg/mg - [facility] Basic Metabolic Profile (BMP )on 10-10-2024 BUN/CRE 19.9 RATIO Normal - [facility] Comment on above: Performed By: #### L 100.0500 #### [facility] Laboratory [address] [place], [place] [address], [address] Calcium [Mass/Vol] 9.1 mg/dL Normal 7.6-11.0 [facility] Comment on above: Performed By: #### L 100.0500 #### [facility] [address] [place] [address] [place], [address] Chloride [Moles/Vol] 103 mmol/L Normal 98-108 [facility] Comment on above: Performed By: #### L 100.0500 #### [facility] [address] [place], [address] CO2 [Moles/Vol] 22.2 mmol/L Normal 21.0-32.0 [facility] Comment on above: Performed By: #### L 100.0500 #### [facility] [address] [place], [address] Creatinine [Mass/Vol] 0.85 mg/dL Normal 0.70-1.20 [facility] Comment on above: Performed By: #### L 100.0500 #### [facility] [address] [place], [address] ECRCL 50.87 ml/min Normal 50-250 [facility] Comment on above: Performed By: #### L 100.0500 #### [facility] [address] [place], [address] GAP 11 Normal 5-15 [facility] Comment on above: Performed By: #### L 100.0500 #### [facility] [address] [place], [address] GFR/1.73 sq M.predicted among non-blacks MDRD (S/P/Bld) [Vol rate/Area] 70 mL/min/{1.73_m2} Normal >60 [facility] Comment on above: Result Comment: mL/m in/1.73m2 CKD-EPI Creatinine Equation (2020) Performed By: #### L 100.0500 #### [facility] [address] [place], [address] Glucose [Mass/Vol] 194 mg/dL High 70-99 [facility] Comment on above: Performed By: #### L 100.0500 #### [facility] [address] [place], [address] Potassium [Moles/Vol] 4.3 mmol/L Normal 3.3-5.1 [facility] Comment on above: Performed By: #### L 100.0500 #### [facility] [address] [place], [address] Sodium [Moles/Vol] 136 mmol/L Normal 133-145 [facility] Comment on above: Performed By: #### L 100.0500 #### [facility] [address] [place], [address] Urea nitrogen [Mass/Vol] 17 mg/dL Normal 4-19 [facility] Comment on above: Performed By: #### L 100.0500 #### [facility] [address] [place], [address] Basophil percentageOrdered B y: Jose Dodd on 10-10-2024 Basophils/100 WBC (Bld) 0.8 % 0-[address] [facility] Bedside Glucoseon 10-10-2024 FINGERSTICK GLU 159 mg/dL High 74-106 [facility] Comment on above: Result Comment: SAMANTA CHEEMA OF PATIENT CARE PER NURSING PROTOCOL Performed By: #### L 100.0500 #### [facility] [address] [place], [address] Bilirubin Test strip Ql (U)O rdered By: Jose Dodd on 10-10-2024 Bilirubin Ql (U) Negative Negative [facility] Blood cultureOrdered By: Tati Dodd on 10-10-2024 Bacteria identified Cx Nom (Bld) No growth in 5 days. [facility] Bacteria identified Cx Nom (Bld) No growth in 5 days. [facility] Brain/Head without Contrasto n 10-10-2024 Brain/Head without Contrast [facility] Imaging Services [address] [place], [place] [address] Brain/Head without Contrast MR#: [id number] Acct: [id number] Name: JUDI KRAUSE Rep #: [id number] : 1945 F 79 From: Ivonne Harris nd, MD PCP: Dr. Ruddy Cooper MD Status: REG ER Study: Brain/Head without Contrast Date of Exam: 09/26 09/19 Exam# [id number] Ordering Dr: Jose Dodd DO EXAM: BRAIN/HEAD WITHOUT CONTRAST CLINICAL HISTORY: 79 y/o F with CONFUSION. COMPARISON: CT head 08/25/2024. TECHNIQUE: Routine CT imaging of the head without IV contrast. Additional multiplanar reformats were obtained. Dose reduction techniques were used including intermediate exposure control (AEC),iterative reconstruction technique, and/or mA and/or KV dose adjustments based on patient's size. FINDINGS: Visualization is limited by metallic streak artifact. Prior left frontal craniotomy. Probable julio cesar hole defect within the right frontal calvarium with linear gliosis extending to the right 3rd ventricle, compatible with prior shunt placement. Mild generalized cerebral volume loss with concordant prominence of the ventricles and subarachnoid spaces. No acute intracranial hemorrhage or herniation. 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 Moderate patchy supratentorial white matter hypodensities. Prior ocular lens replacements. Mild mucosal thickening of the right maxillary sinus. The visualized paranasal sinuses and mastoids are otherwise unremarkable. No acute calvarial fracture or scalp hematoma. CT/Brain/Head without Contrast IMPRESSION: No acute intracranial finding. Stable postoperative changes as described. Reading Location: [facility] CC: Dr. Jose Dodd DO; Dr. Ruddy Cooper MD Showroom Salesperson: Signed Normal [facility] CBC W/Diff, Automatedon 09-26 Absolute Lymph 1.47 X10 3/uL Normal 0.83-4.51 [facility] Comment on above: Performed By: #### L 100.0500 #### [facility] [address] [place], [address] Absolute Neut 3.9 X10 3/uL Normal 2.0-7.7 [facility] Comment on above: Performed By: #### L 100.0500 #### [facility] [address] [place], [address] Basophils/100 WBC (Bld) 0.8 % Normal 0-[address] [facility] Comment on above: Performed By: #### L 100.0500 #### [facility] [address] [place], [address] Eosinophils/100 WBC (Bld) 3.8 % Normal 0-5 [facility] Comment on above: Performed By: #### L 100.0500 #### [facility] [address] [place], [address] Erythrocyte distribution width (RBC) [Ratio] 12.0 % Normal 11.6-14.6 [facility] Comment on above: Performed By: #### L 100.0500 #### [facility] [address] [place], [address] Hematocrit (Bld) [Volume fraction] 39.8 % Normal 37-47 [facility] Comment on above: Performed By: #### L 100.0500 #### [facility] [address] [place], [address] Hemoglobin (Bld) [Mass/Vol] 13.2 g/dL Normal 12.0-15.0 [facility] Comment on above: Performed By: #### L 100.0500 #### [facility] [address] [place], [address] IG% 0.300 Normal 0.0-0.9 [facility] Comment on above: Result Comment: IG% - Immature Granulocytes (promyelocytes, myelocytes and metamyelocytes) > 1% indicates that a LEFT SHIFT is Present. Performed By: #### L 100.0500 #### [facility] [address] [place], [address] Lymphocytes/100 WBC (Bld) 23.5 % Normal 19-41 [facility] Comment on above: Performed By: #### L 100.0500 #### [facility] [address] [place], [address] MCH (RBC) [Entitic mass] 30.5 pg Normal 27.0-32.0 [facility] Comment on above: Performed By: #### L 100.0500 #### [facility] [address] [place], [address] MCHC (RBC) [Mass/Vol] 33.2 g/dL Normal 32-36 [facility] Comment on above: Performed By: #### L 100.0500 #### [facility] [address] [place], [address] MCV (RBC) [Entitic vol] 91.9 fL Normal 81-99 [facility] Comment on above: Performed By: #### L 100.0500 #### [facility] [address] [place], [address] Monocytes/100 WBC (Bld) 9.3 % Normal 0-10 [facility] Comment on above: Performed By: #### L 100.0500 #### [facility] [address] [place], [address] Neutrophils/100 WBC (Bld) 62.3 % Normal 47-70 [facility] Comment on above: Performed By: #### L 100.0500 #### [facility] [address] [place], [address] Nucleated RBC (Bld) [#/Vol] 0 10*3/uL Normal 0-5 [facility] Comment on above: Performed By: #### L 100.0500 #### [facility] [address] [place], [address] Platelet mean volume (Bld) [Entitic vol] 8.3 fL Normal 6.2-12.0 [facility] Comment on above: Performed By: #### L 100.0500 #### [facility] [address] [place], [address] Platelets (Bld) [#/Vol] 323 10*3/uL Normal 150-450 [facility] Comment on above: Performed By: #### L 100.0500 #### [facility] [address] [place], [address] RBC (Bld) [#/Vol] 4.33 10*6/uL Normal 4.2-5.4 [facility] Comment on above: Performed By: #### L 100.0500 #### [facility] [address] [place], [address] RDW SD 40.5 fl Normal 35.1-43.9 [facility] Comment on above: Performed By: #### L 100.0500 #### [facility] [address] [place], [address] WBC (Bld) [#/Vol] 6.3 10*3/uL Normal 4.4-11.0 [facility] Comment on above: Performed By: #### L 100.0500 #### [facility] [address] [place], [address] Carbon dioxide, total [Moles /volume] in Central venous bloodOrdered By: Jose Dodd on 10-10-2024 CO2 [Moles/Vol] 22.2 mmol/L 21.0-32.0 [facility] Chest PA and Lateralon 06-15 -2025 Chest PA and Lateral [facility] Imaging Services [address] [place] [address] Chest PA and Lateral MR#: [id number] Acct: [id number] Name: JUDI KRAUSE Rep #: [id number] : 1945 F 79 From: Ivonne Harris nd, MD PCP: Dr. Ruddy Cooper MD Status: REG ER Study: Chest PA and Lateral Date of Exam: 10/10/24 Exam# [id number] Ordering Dr: Jose Dodd DO PROCEDURE: CHEST PA AND LATERAL 10/10/2024 REASON FOR EXAM: CONFUSION TECHNIQUE: CHEST PA AND LATERAL COMPARISON: CT chest, abdomen and pelvis 08/25/2024. FINDINGS: Hardware: None. Heart: The heart size is normal. Mediastinum: The mediastinal contour is stable. Lungs: No focal consolidation, pleural effusion or pneumothorax. Bones: Degenerative changes are identified within the thoracic spine. RAD/Chest PA and Lateral IMPRESSION: NO ACUTE FINDINGS. Reading Location: [facility] CC: Dr. Jose Dodd DO; Dr. Ruddy Cooper MD Showroom Salesperson: Signed Normal [facility] Chloride assayOrdered By: Christopher Dodd on 10-10-2024 Chloride [Moles/Vol] 103 mmol/L 98-108 [facility] Emergency Department Summary on 10-10-2024 Emergency Department Summary [facility] Medical Records Department [address] [place] [address] Emergency Department Summary 10/10/24 MR#: [id number] Acct: [id number] Name: JUDI KRAUSE Rep #: [id number] : 1945 79 From: Jose Dodd DO PCP: Dr. Ruddy Cooper MD Status:ADM IN [facility] History of Present Illness Chief Complaint: Confusion Informant: patient and EMS Onset/Context/Timing Onset: Today Timing: Continuous Quality: Confusion Location: Generalized Worsened by: Nothing Relieved by: Nothing Narrative Narrative: The patient presents with confusion that was noticed today. Patient was talking on the phone with her daughter today and her daughter called EMS because she felt the patient was confused. Daughter states patient was not answering questions appropriately and was not making sense when she talk to her. Patient states she talked to her daughter yesterday on the phone. Patient states that she was not confused yesterday. Patient denies any fevers or chills. Patient states she feels off balance when he walks. Patient denies falling or hitting her head. Patient knows that there is September. Patient thinks it is 1974. [facility] Medical History Orthostatic hypotension Hoarseness History of [...] tablet 81 mg PO DAILY heart health 10/09/24 History letrozole 2.5 mg tablet 2.5 mg PO DAILY 08/25/24 10/10/24 History metformin 500 mg tablet 500 mg PO DAILY diabetes mellitus 08/25/24 Unknown History nortriptyline 50 mg capsule 150 mg PO QHS 08/25/24 10/09/24 Hi story quetiapine 25 mg tablet 25 mg PO QHS #30 tabs 08/30/24 Unk nown Rx meclizine 25 mg chewable tablet 25 mg PO TID PRN dizziness #10 tab s 09/09/24 Unknown Rx (Antivert) losartan 25 mg tablet 25 mg PO DAILY 10/10/24 10/10/24 H istory Allergy/AdvReac Type Severity Reaction Status Date / [...] ROS ROS ED Constitutional Constitutional ED: Denies chills or fever(s) Eyes Eyes: Denies blurry vision or change in vision ENT ENT ED: Denies rhinorrhea or sore throat Cardiovascular Cardiovascular: Denies chest pain or palpitations Respiratory/Chest Respiratory/Chest: Denies cough or dyspnea Gastrointestinal Gastrointestinal: Denies nausea or vomiting Genitourinary Genitourinary ED: Denies dysuria or hematuria Musculoskeletal Musculoskeletal: Denies back pain or neck pain Integumentary Denies abscess or rash Neurologic Neurologic: Denies headache(s) or weakness Allergic/Immunologic Allergic/Immunologic ED: Denies mouth swelling or urticaria EXAM Physical Exam Const Vital Signs: 10/10/24 14:03 10/10/24 15:34 10/10/24 16:00 Temperature 98.9 F 98.6 F 98.6 F Temperature Source Oral Oral Oral Pulse Rate 96 89 84 Respiratory Rate 21 H 17 17 Blood Pressure 117/76 134/83 H 118/80 Blood Pressure Mean 89 100 92 Pulse Ox 97 99 96 Oxygen Delivery Method Room Air Room Air Room Air Positive well nourished and well developed General Appearance ED: well developed and NAD HEENT Reports moist mucous membranes Negative for trauma Neck supple a (more content not included)... Normal [facility] Eosinophil percentageOrdered By: Jose Dodd on 10-10-2024 Eosinophils/100 WBC (Bld) 3.8 % 0-5 [facility] Erythrocyte distribution wid th ratioOrdered By: Jose Dodd on 10-10-2024 Erythrocyte distribution width (RBC) [Ratio] 12.0 % 11.6-14.6 [facility] Erythrocyte distribution wid th standard deviationOrdered By: Jose Dodd on 10-10-2024 Erythrocyte distribution width (RBC) [Ratio] 40.5 fl 35.1-43.9 [facility] Glomerular filtration rate ( GFR) estimation/1.73 sq m using serum, plasma, or whole bOrdered By: Jose Dodd on 10-10-2024 GFR/1.73 sq M.predicted among non-blacks MDRD (S/P/Bld) [Vol rate/Area] 70 mL/min/{1.73_m2} >60 [facility] Comment on above: mL/min/1.73m2 CKD-EP I Creatinine Equation (2020) H AND P Exam - [facility] 10-10-2024 H&P Exam - Hospitalist [facility] Medical Records Department [address] [place] [address] H P Exam - Hospitalist 10/10/24 1640 MR#: [id number] Acct: [id number] Name: JUDI KRAUSE Rep #: [id number] : 1945 79 From: Luis Baer MD PCP: Dr. Ruddy Cooper MD Status:ADM IN [place] [facility] HPI - General General Date of Admission: 10/10/24 HPI Narrative JUDI KRAUSE, is a 79 F who presents to the hospital with confusion. Her daughter called the ambulance because she was talking to her on the phone and felt she was giving inappropriate responses and seemed confused. She states that she spoke to her daughter yesterday not today. She is not a great historian because she thinks is 1925 and she cannot give the duration of her symptoms however she says that she has been feeling off for a little bit and in the ER was found to have normal vital signs and fairly normal lab work, her lactic acid was elevated 2.6 but she does not have a leukocytosis, and she remains afebrile, brain CT and chest x-ray are unremarkable. Urine analysis demonstrates positive nitrites with leukocyte esterase of 104+ urine bacteria. Her previous culture in July grew a pansensitive Proteus and she was given a dose of Rocephin in the emergency room. [facility] Medical History Orthostatic hypotension Hoarseness History of [...] tablet 81 mg PO DAILY heart health 10/09/24 History letrozole 2.5 mg tablet 2.5 mg PO DAILY 08/25/24 10/10/24 History metformin 500 mg tablet 500 mg PO DAILY diabetes mellitus 08/25/24 Unknown History nortriptyline 50 mg capsule 150 mg PO QHS 08/25/24 10/09/24 Hi story quetiapine 25 mg tablet 25 mg PO QHS #30 tabs 08/30/24 Unk nown Rx meclizine 25 mg chewable tablet 25 mg PO TID PRN dizziness #10 tab s 09/09/24 Unknown Rx (Antivert) losartan 25 mg tablet 25 mg PO DAILY 10/10/24 10/10/24 H istory Allergy/AdvReac Type Severity Reaction Status Date / [...] substance use type: does not use ROS Constitutional Constitutional: Denies chills, fatigue, fever(s) or malaise Eyes Eyes: Denies blurry vision ENT HEENT: Denies headache(s) or nasal discharge Cardiovascular Cardiovascular: Denies chest pain, dyspnea on exertion or syncope Respiratory/Chest Respiratory/Chest: Denies cough, shortness of breath at rest or shortness of breath with exertion Gastrointestinal Gastrointestinal: Denies constipation, diarrhea, nausea or vomiting Genitourinary Genitourinary: Denies dysuria Neurologic Neurologic: Reports confusion; Denies focal weakness, numbness or tremor(s) Psychiatric Psychiatric: Denies anxiety or depression Vital Signs Vital Signs Vital Signs: 10/10/24 14:03 10/10/24 15:34 10/10/24 16:00 Temperature 98.9 F 98.6 F 98.6 F Temperature Source Oral Oral Oral Pulse Rate 96 89 84 Respiratory Rate 21 H 17 17 Blood Pressure 117/76 134/83 H 118/80 Blood Pressure Mean 89 100 92 Pulse Ox 97 99 96 Oxygen Delivery Method Room Air Room Air Room Air Weight Weight: 152 lb 5.431 oz Body Mass Index (BMI) 26.9 Physical Exam Narrative General: Alert, Oriented x2, [place] (more content not included)... Normal [facility] Hematocrit Auto (Bld) [Volum e fraction]Ordered By: Jose Dodd on 10-10-2024 Hematocrit (Bld) [Volume fraction] 39.8 % 37-47 [facility] Hemoglobin measurementOrdere d By: Jose Dodd on 10-10-2024 Hemoglobin (Bld) [Mass/Vol] 13.2 g/dL 12.0-15.0 [facility] Immature granulocytes/100 WB C Auto (Bld)Ordered By: Jose Dodd on 10-10-2024 Immature granulocytes/100 WBC (Bld) 0.300 % 0.0-0.9 [facility] Comment on above: IG% - Immature Granu locytes (promyelocytes, myelocytes and metamyelocytes) > 1% indicates that a LEFT SHIFT is Present. Influenza virus A and B and SARS-CoV-2 (COVID-19) and Respiratory syncytial virus RNAOrdered By: Jose Dodd on 10-10-2024 SARS-CoV-2 (COVID-19) RNA DUSTIN+probe Ql (Unsp spec) [facility] Ketones Test strip Ql (U)Ord ered By: Jose Dodd on 10-10-2024 Ketones Ql (U) Negative Negative [facility] L499.0042on 10-10-2024 Trop T High Sen 15 ng/L High <=14 [facility] Comment on above: Performed By: #### L 501.080 #### [facility] [address] [place], [address] L499.0043on 10-10-2024 Trop T High Sen 13 ng/L Normal <=14 [facility] Comment on above: Performed By: #### L 501.080 #### [facility] [address] [place], [address] L501.4021on 10-10-2024 Trop T High Sen 15 ng/L High <=14 [facility] Comment on above: Performed By: #### L 501.080 #### [facility] [address] [place], [address] Lactic Acidon 10-10-2024 Lactate [Moles/Vol] 1.5 mmol/L Normal 0.0-2.0 [facility] Comment on above: Performed By: #### L 100.0500 #### [facility] [address] [place], [address] Lactate [Moles/Vol] 2.6 mmol/L Invalid Interpretation Code 0.0-2.0 [facility] Comment on above: Order Comment: Y Result Comment: Crit ical Result(s) Called at: 1525 by: TO [facility] TO [facility]??Results read back by same. Performed By: #### L 100.0500 #### [facility] [address] [place], [address] Lactic acid measurementOrder ed By: Jose Dodd on 10-10-2024 Lactate [Moles/Vol] 1.5 mmol/L 0.0-2.0 [facility] Lactate [Moles/Vol] 2.6 mmol/L High 0.0-2.0 [facility] Comment on above: Critical Result(s) C alled at: 1525 by: TO [facility] TO [facility] Results read back by same. M100.678on 10-10-2024 M100.678 Pending SARS-CoV-2 (COVID 19) Negative INFLUENZA A Negative INFLUENZA B Negative RSV PCR Negative Normal [facility] Comment on above: Performed By: #### L 501.080 #### [facility] [address] [place], [place], [address] MCV (mean corpuscular volume ) determinationOrdered By: Jose Dodd on 10-10-2024 MCV (RBC) [Entitic vol] 91.9 fL 81-[address] [facility] Mean corpuscular hemoglobin (MCH) determinationOrdered By: Jose Dodd on 10-10-2024 MCH (RBC) [Entitic mass] 30.5 pg 27.0-32.0 [facility] Mean corpuscular hemoglobin concentration (MCHC) determinationOrdered By: Jose Dodd on 10-10-2024 MCHC (RBC) [Mass/Vol] 33.2 g/dL 32-36 [facility] Mean platelet volume determi nationOrdered By: Jose Dodd on 10-10-2024 Platelet mean volume (Bld) [Entitic vol] 8.3 fL 6.2-12.0 [facility] Microscopic analysis of urin e for red blood cells (RBC)Ordered By: Jose Dodd on 10-10-2024 Microscopic analysis of urine for red blood cells (RBC) 0 SEEN /hpf 0-5 [facility] Monocyte percentageOrdered B y: Jose Dodd on 10-10-2024 Monocytes/100 WBC (Bld) 9.3 % 0-[address] [facility] Mucus LM Ql (Urine sed)Order ed By: Jose Dodd on 10-10-2024 Mucus Ql (Urine sed) 0 SEEN /hpf [facility] Neutrophil percentageOrdered By: Jose Dodd on 10-10-2024 Neutrophils/100 WBC (Bld) 62.3 % 47-70 [facility] Nitrite Test strip Ql (U)Ord ered By: Jose Dodd on 10-10-2024 Nitrite Ql (U) Positive High Negative [facility] Nucleated red blood cell per centageOrdered By: Jose Dodd on 10-10-2024 Nucleated RBC/100 WBC (Bld) [Ratio] 0 % 0-5 [facility] Platelet countOrdered By: Christopher Dodd on 10-10-2024 Platelets (Bld) [#/Vol] 323 10*3/uL 150-450 [facility] Potassium measurement (mass/ volume)Ordered By: Jose Dodd on 10-10-2024 Potassium (Unsp spec) [Mass/Vol] 4.3 mmol/L 3.3-5.1 [facility] Protein Test strip Ql (U)Ord ered By: Jose Dodd on 10-10-2024 Protein Ql (U) 15 mg/dl High Negative [facility] RBC Auto (Bld) [#/Vol]Ordere d By: Jose Dodd on 10-10-2024 RBC (Bld) [#/Vol] 4.33 10*6/uL 4.2-5.4 [facility] Serum creatinine measurement (mass/volume)Ordered By: Jose Dodd on 10-10-2024 Creatinine [Mass/Vol] 0.85 mg/dL 0.70-1.20 [facility] Serum glucose measurement (m ass/volume)Ordered By: Jose Dodd on 10-10-2024 Glucose [Mass/Vol] 194 mg/dL High 70-99 [facility] Serum or plasma calcium rodríguez urement (mass/volume)Ordered By: Jose Dodd on 10-10-2024 Calcium [Mass/Vol] 9.1 mg/dL 7.6-11.0 [facility] Serum or plasma urea nitroge n measurement (mass/volume)Ordered By: Jose Dodd on 10-10-2024 Urea nitrogen [Mass/Vol] 17 mg/dL 4-19 [facility] Sodium levelOrdered By: Jose Dodd on 10-10-2024 Sodium [Moles/Vol] 136 mmol/L 133-145 [facility] Squamous epithelial cells de tection in urine sediment by light microscopyOrdered By: Jose Dodd on 10-10-2024 Epithelial cells.squamous LM Ql (Urine sed) 0-5 SEEN /hpf 5-10 [facility] Troponin T.cardiac [Mass/vol ume] in Serum or Plasma by High sensitivity methodOrdered By: Jose Dodd on 10-10-2024 Troponin T.cardiac High sensitivity method [Mass/Vol] 13 ng/L <14 [facility] Troponin T.cardiac High sensitivity method [Mass/Vol] 15 ng/L High <14 [facility] Troponin T.cardiac High sensitivity method [Mass/Vol] 15 ng/L High <14 [facility] Urinalysis, Completeon 10-10 AMORPHOUS 3+ Normal [facility] Comment on above: Order Comment: CLEAN CATCH Performed By: #### L 501.080 #### [facility] [address] [place], [address] BACTERIA 4+ /hpf Normal None Seen [facility] Comment on above: Order Comment: CLEAN CATCH Performed By: #### L 501.080 #### [facility] [address] [place], [address] CAST,COARSE GR 0-5 SEEN Normal 0-5 /lpf [facility] Comment on above: Order Comment: CLEAN CATCH Performed By: #### L 501.080 #### [facility] [address] [place], [address] EPI,SQUAMOUS 0-5 SEEN Normal 5-10 [facility] Comment on above: Order Comment: CLEAN CATCH Performed By: #### L 501.080 #### [facility] [address] [place], [address] WBC 5-10 SEEN Normal 0-5 [facility] Comment on above: Order Comment: CLEAN CATCH Performed By: #### L 501.080 #### [facility] [address] [place], [address] Mucus Ql (Urine sed) 0 SEEN Normal [facility] Comment on above: Order Comment: CLEAN CATCH Performed By: #### L 501.080 #### [facility] [address] [place], [address] RBC 0 SEEN Normal 0-5 [facility] Comment on above: Order Comment: CLEAN CATCH Performed By: #### L 501.080 #### [facility] [address] [place], [address] Urine clarityOrdered By: Tati Dodd on 10-10-2024 Clarity (U) Cloudy Clear [facility] Urine coarse granular cast d etectionOrdered By: Jose Dodd on 10-10-2024 Coarse Granular Casts LM Ql (Urine sed) 0-5 SEEN /lpf 0-5 /lpf [facility] Urine color determinationOrd ered By: Jose Dodd on 10-10-2024 Color (U) Yellow Yellow [facility] Urine cultureOrdered By: Tati Dodd on 10-10-2024 Bacteria identified Cx Nom (U) Escherichia coli Abnormal [facility] Urine glucose detectionOrder ed By: Jose Dodd on 10-10-2024 Glucose Ql (U) Normal mg/dl Normal [facility] Urine leukocyte esterase det ection by dipstickOrdered By: Jose Dodd on 10-10-2024 Leukocyte esterase Test strip Ql (U) 100 /ul High Negative [facility] Urine pHOrdered By: Jose montes on 10-10-2024 pH (U) 7.0 [pH] 5.0 - 8.0 [facility] Urine sediment bacteria coun t by microscopy (number/high power field)Ordered By: Jose Dodd on 10-10-2024 Bacteria LM.HPF (Urine sed) [#/Area] 4 /[HPF] None Seen [facility] Urine specific gravity measu rementOrdered By: Jose Dodd on 10-10-2024 Specific gravity (U) [Rel density] 1.015 1.002-1.030 [facility] Urine urobilinogen measureme ntOrdered By: Jose Dodd on 10-10-2024 Urobilinogen Ql (U) Normal mg/dl Normal [facility] White blood cell (WBC) count Ordered By: Jose Dodd on 10-10-2024 WBC (Bld) [#/Vol] 6.3 10*3/uL 4.4-11.0 [facility] White blood cell countOrdere d By: Jose Dodd on 10-10-2024 White blood cell count 5-10 SEEN /hpf 0-5 [facility] Absolute lymphocyte countOrd ered By: Yossi Heredia on 09-08-2024 Lymphocytes Auto (Unsp spec) [#/Vol] 1.90 10*3/uL 0.83-4.51 [facility] Absolute neutrophil countOrd ered By: Yossi Heredia on 09-08-2024 Neutrophils (Bld) [#/Vol] 3.6 10*3/uL 2.0-7.7 [facility] Anion gap in Serum or Plasma Ordered By: Yossi Heredia on 09-08-2024 Anion gap [Moles/Vol] 13 mmol/L 09-09 [facility] Automated lymphocyte count a s percentage of total leukocytesOrdered By: Yossi Heredia on 09-08-2024 Lymphocytes/100 WBC Auto (Unsp spec) 29.8 % [facility] BUN/creatinine ratioOrdered By: Yossi Heredia on 09-08-2024 Urea nitrogen/Creatinine [Mass ratio] 22.1 mg/mg High 02-14 [facility] Basic Metabolic Profile (BMP )on 09-08-2024 BUN/CRE 22.1 RATIO High 02-14 [facility] Comment on above: Performed By: #### L 100.0100, L500.2500 #### [facility] [address] [place], [address] Calcium [Mass/Vol] 9.4 mg/dL Normal 7.6-11.0 [facility] Comment on above: Performed By: #### L 100.0100, L500.2500 #### [facility] [address] [place], [address] Chloride [Moles/Vol] 105 mmol/L Normal 98-108 [facility] Comment on above: Performed By: #### L 100.0100, L500.2500 #### [facility] [address] [place], [address] CO2 [Moles/Vol] 20.0 mmol/L Low 21.0-32.0 [facility] Comment on above: Performed By: #### L 100.0100, L500.2500 #### [facility] [address] [place], [address] Creatinine [Mass/Vol] 0.88 mg/dL Normal 0.70-1.20 [facility] Comment on above: Performed By: #### L 100.0100, L500.2500 #### [facility] [address] [place], [address] ECRCL 48.64 ml/min Low 50-250 [facility] Comment on above: Performed By: #### L 100.0100, L500.2500 #### [facility] [address] [place], [address] GAP 13 Normal 5-15 [facility] Comment on above: Performed By: #### L 100.0100, L500.2500 #### [facility] [address] [place], [address] GFR/1.73 sq M.predicted among non-blacks MDRD (S/P/Bld) [Vol rate/Area] 67 mL/min/{1.73_m2} Normal >60 [facility] Comment on above: Result Comment: mL/m in/1.73m2 CKD-EPI Creatinine Equation (2020) Performed By: #### L 100.0100, L500.2500 #### [facility] [address] [place], [address] Glucose [Mass/Vol] 119 mg/dL High 70-99 [facility] Comment on above: Performed By: #### L 100.0100, L500.2500 #### [facility] [address] [place], [address] Potassium [Moles/Vol] 4.6 mmol/L Normal 3.3-5.1 [facility] Comment on above: Result Comment: Hemo lysis present, Results??could be affected. ?? Performed By: #### L 100.0100, L500.2500 #### [facility] [address] [place], [address] Sodium [Moles/Vol] 138 mmol/L Normal 133-145 [facility] Comment on above: Performed By: #### L 100.0100, L500.2500 #### [facility] [address] [place], [address] Urea nitrogen [Mass/Vol] 20 mg/dL High - [facility] Comment on above: Performed By: #### L 100.0100, L500.2500 #### [facility] [address] [place], [address] Basophil percentageOrdered B y: Yossi Heredia on 09-08-2024 Basophils/100 WBC (Bld) 1.1 % High 0-[address] [facility] CBC W/Diff, Automatedon 08-26 Absolute Lymph 1.90 X10 3/uL Normal 0.83-4.51 [facility] Comment on above: Performed By: #### L 100.0100, L500.2500 #### [facility] [address] [place], [address] Absolute Neut 3.6 X10 3/uL Normal 2.0-7.7 [facility] Comment on above: Performed By: #### L 100.0100, L500.2500 #### [facility] [address] [place], [address] Basophils/100 WBC (Bld) 1.1 % High 0-[address] [facility] Comment on above: Performed By: #### L 100.0100, L500.2500 #### [facility] [address] [place], [address] Eosinophils/100 WBC (Bld) 5.0 % Normal 0-5 [facility] Comment on above: Performed By: #### L 100.0100, L500.2500 #### [facility] [address] [place], [address] Erythrocyte distribution width (RBC) [Ratio] 12.4 % Normal 11.6-14.6 [facility] Comment on above: Performed By: #### L 100.0100, L500.2500 #### [facility] [address] [place], [address] Hematocrit (Bld) [Volume fraction] 39.3 % Normal 37-47 [facility] Comment on above: Performed By: #### L 100.0100, L500.2500 #### [facility] [address] [place], [address] Hemoglobin (Bld) [Mass/Vol] 13.0 g/dL Normal 12.0-15.0 [facility] Comment on above: Performed By: #### L 100.0100, L500.2500 #### [facility] [address] [place], [address] IG% 0.300 Normal 0.0-0.9 [facility] Comment on above: Result Comment: IG% - Immature Granulocytes (promyelocytes, myelocytes and metamyelocytes) > 1% indicates that a LEFT SHIFT is Present. Performed By: #### L 100.0100, L500.2500 #### [facility] [address] [place], [address] Lymphocytes/100 WBC (Bld) 29.8 % Normal 19-41 [facility] Comment on above: Performed By: #### L 100.0100, L500.2500 #### [facility] [address] [place], [address] MCH (RBC) [Entitic mass] 30.3 pg Normal 27.0-32.0 [facility] Comment on above: Performed By: #### L 100.0100, L500.2500 #### [facility] [address] [place], [address] MCHC (RBC) [Mass/Vol] 33.1 g/dL Normal 32-36 [facility] Comment on above: Performed By: #### L 100.0100, L500.2500 #### [facility] [address] [place], [address] MCV (RBC) [Entitic vol] 91.6 fL Normal 81-[address] [facility] Comment on above: Performed By: #### L 100.0100, L500.2500 #### [facility] [address] [place], [address] Monocytes/100 WBC (Bld) 7.8 % Normal 0-10 [facility] Comment on above: Performed By: #### L 100.0100, L500.2500 #### [facility] [address] [place], [address] Neutrophils/100 WBC (Bld) 56.0 % Normal 47-70 [facility] Comment on above: Performed By: #### L 100.0100, L500.2500 #### [facility] [address] [place], [address] Nucleated RBC (Bld) [#/Vol] 0 10*3/uL Normal 0-5 [facility] Comment on above: Performed By: #### L 100.0100, L500.2500 #### [facility] [address] [place], [address] Platelet mean volume (Bld) [Entitic vol] 8.8 fL Normal 6.2-12.0 [facility] Comment on above: Performed By: #### L 100.0100, L500.2500 #### [facility] [address] [place], [address] Platelets (Bld) [#/Vol] 347 10*3/uL Normal 150-450 [facility] Comment on above: Performed By: #### L 100.0100, L500.2500 #### [facility] [address] [place], [address] RBC (Bld) [#/Vol] 4.29 10*6/uL Normal 4.2-5.4 [facility] Comment on above: Performed By: #### L 100.0100, L500.2500 #### [facility] [address] [place], [address] RDW SD 41.1 fl Normal 35.1-43.9 [facility] Comment on above: Performed By: #### L 100.0100, L500.2500 #### [facility] [address] [place], [address] WBC (Bld) [#/Vol] 6.4 10*3/uL Normal 4.4-11.0 [facility] Comment on above: Performed By: #### L 100.0100, L500.2500 #### [facility] [address] [place], [address] Carbon dioxide, total [Moles /volume] in Central venous bloodOrdered By: Yossi Heredia on 09-08-2024 CO2 [Moles/Vol] 20.0 mmol/L Low 21.0-32.0 [facility] Chloride assayOrdered By: Elder Heredia on 09-08-2024 Chloride [Moles/Vol] 105 mmol/L 98-108 [facility] Emergency Department Summary on 09-08-2024 Emergency Department Summary [facility] Medical Records Department [address] [place] [address] Emergency Department Summary 09/08/24 MR#: [id number] Acct: [id number] Name: JUDI KRAUSE Rep #: [id number] : 1945 79 From: Yossi Heredia MD [...] symptoms: Yes Recent Illness/Hospitalizatio n: Yes PFSH PFSH Medical History Orthostatic hypotension Hoarseness History of [...] lymphadenopathy. Lungs (more content not included)... Normal [facility] Eosinophil percentageOrdered By: Yossi Heredia on 09-08-2024 Eosinophils/100 WBC (Bld) 5.0 % 0-5 [facility] Erythrocyte distribution wid th ratioOrdered By: Yossi Heredia on 09-08-2024 Erythrocyte distribution width (RBC) [Ratio] 12.4 % 11.6-14.6 [facility] Erythrocyte distribution wid th standard deviationOrdered By: Yossi Heredia on 09-08-2024 Erythrocyte distribution width (RBC) [Ratio] 41.1 fl 35.1-43.9 [facility] Glomerular filtration rate ( GFR) estimation/1.73 sq m using serum, plasma, or whole bOrdered By: Yossi Heredia on 09-08-2024 GFR/1.73 sq M.predicted among non-blacks MDRD (S/P/Bld) [Vol rate/Area] 67 mL/min/{1.73_m2} >60 [facility] Comment on above: mL/min/1.73m2 CKD-EP I Creatinine Equation (2020) Hematocrit Auto (Bld) [Volum e fraction]Ordered By: Yossi Heredia on 09-08-2024 Hematocrit (Bld) [Volume fraction] 39.3 % 37-47 [facility] Hemoglobin measurementOrdere d By: Yossi Heredia on 09-08-2024 Hemoglobin (Bld) [Mass/Vol] 13.0 g/dL 12.0-15.0 [facility] Immature granulocytes/100 WB C Auto (Bld)Ordered By: Yossi Heredia on 09-08-2024 Immature granulocytes/100 WBC (Bld) 0.300 % 0.0-0.9 [facility] Comment on above: IG% - Immature Granu locytes (promyelocytes, myelocytes and metamyelocytes) > 1% indicates that a LEFT SHIFT is Present. MCV (mean corpuscular volume ) determinationOrdered By: Yossi Heredia on 09-08-2024 MCV (RBC) [Entitic vol] 91.6 fL 81-[address] [facility] Mean corpuscular hemoglobin (MCH) determinationOrdered By: Yossi Heredia on 09-08-2024 MCH (RBC) [Entitic mass] 30.3 pg 27.0-32.0 [facility] Mean corpuscular hemoglobin concentration (MCHC) determinationOrdered By: Yossi Heredia on 09-08-2024 MCHC (RBC) [Mass/Vol] 33.1 g/dL 32-36 [facility] Mean platelet volume determi nationOrdered By: Yossi Heredia on 09-08-2024 Platelet mean volume (Bld) [Entitic vol] 8.8 fL 6.2-12.0 [facility] Monocyte percentageOrdered B y: Yossi Heredia on 09-08-2024 Monocytes/100 WBC (Bld) 7.8 % 0-[address] [facility] Neutrophil percentageOrdered By: Yossi Heredia on 09-08-2024 Neutrophils/100 WBC (Bld) 56.0 % 47-70 [facility] Nucleated red blood cell per centageOrdered By: Yossi Heredia on 09-08-2024 Nucleated RBC/100 WBC (Bld) [Ratio] 0 % 0-5 [facility] Platelet countOrdered By: Elder Heredia on 09-08-2024 Platelets (Bld) [#/Vol] 347 10*3/uL 150-450 [facility] Potassium measurement (mass/ volume)Ordered By: Yossi Heredia on 09-08-2024 Potassium (Unsp spec) [Mass/Vol] 4.6 mmol/L 3.3-5.1 [facility] Comment on above: Hemolysis present, R esults could be affected. RBC Auto (Bld) [#/Vol]Ordere d By: Yossi Heredia on 09-08-2024 RBC (Bld) [#/Vol] 4.29 10*6/uL 4.2-5.4 [facility] Serum creatinine measurement (mass/volume)Ordered By: Yossi Heredia on 09-08-2024 Creatinine [Mass/Vol] 0.88 mg/dL 0.70-1.20 [facility] Serum glucose measurement (m ass/volume)Ordered By: Yossi Heredia on 09-08-2024 Glucose [Mass/Vol] 119 mg/dL High 70-99 [facility] Serum or plasma calcium rodríguez urement (mass/volume)Ordered By: Yossi Heredia on 09-08-2024 Calcium [Mass/Vol] 9.4 mg/dL 7.6-11.0 [facility] Serum or plasma urea nitroge n measurement (mass/volume)Ordered By: Yossi Heredia on 09-08-2024 Urea nitrogen [Mass/Vol] 20 mg/dL High 08-14 [facility] Sodium levelOrdered By: Yossi Heredia on 09-08-2024 Sodium [Moles/Vol] 138 mmol/L 133-145 [facility] White blood cell (WBC) count Ordered By: Yossi Heredia on 09-08-2024 WBC (Bld) [#/Vol] 6.4 10*3/uL 4.4-11.0 [facility] Anion gap in Serum or Plasma Ordered By: Veto Lynne on 08-30-2024 Anion gap [Moles/Vol] 12 mmol/L - [facility] BUN/creatinine ratioOrdered By: Veto Lynne on 08-30-2024 Urea nitrogen/Creatinine [Mass ratio] 25.5 mg/mg High 02-14 [facility] Basic Metabolic Profile (BMP )on 08-30-2024 BUN/CRE 25.5 RATIO High - [facility] Comment on above: Performed By: #### L 501.080 #### [facility] [address] [place], [address] Calcium [Mass/Vol] 8.9 mg/dL Normal 7.6-11.0 [facility] Comment on above: Performed By: #### L 501.080 #### [facility] [address] [place], [address] Chloride [Moles/Vol] 107 mmol/L Normal 98-108 [facility] Comment on above: Performed By: #### L 501.080 #### [facility] [address] [place], [address] CO2 [Moles/Vol] 19.7 mmol/L Low 21.0-32.0 [facility] Comment on above: Performed By: #### L 501.080 #### [facility] [address] [place], [address] Creatinine [Mass/Vol] 0.87 mg/dL Normal 0.70-1.20 [facility] Comment on above: Performed By: #### L 501.080 #### [facility] [address] [place], [address] ECRCL 49.17 ml/min Low 50-250 [facility] Comment on above: Performed By: #### L 501.080 #### [facility] [address] [place], [address] GAP 12 Normal 5-15 [facility] Comment on above: Performed By: #### L 501.080 #### [facility] [address] [place], [address] GFR/1.73 sq M.predicted among non-blacks MDRD (S/P/Bld) [Vol rate/Area] 68 mL/min/{1.73_m2} Normal >60 [facility] Comment on above: Result Comment: mL/m in/1.73m2 CKD-EPI Creatinine Equation (2020) Performed By: #### L 501.080 #### [facility] [address] [place], [address] Glucose [Mass/Vol] 132 mg/dL High 70-99 [facility] Comment on above: Performed By: #### L 501.080 #### [facility] [address] [place], [address] Potassium [Moles/Vol] 4.2 mmol/L Normal 3.3-5.1 [facility] Comment on above: Performed By: #### L 501.080 #### [facility] [address] [place], [address] Sodium [Moles/Vol] 138 mmol/L Normal 133-145 [facility] Comment on above: Performed By: #### L 501.080 #### [facility] [address] [place], [address] Urea nitrogen [Mass/Vol] 22 mg/dL High 4-19 [facility] Comment on above: Performed By: #### L 501.080 #### [facility] [address] [place], [address] CBC-Complete Blood Cnt No Di ffon 08-30-2024 Erythrocyte distribution width (RBC) [Ratio] 12.6 % Normal 11.6-14.6 [facility] Comment on above: Performed By: #### L 100.0500 #### [facility] [address] [place], [address] Hematocrit (Bld) [Volume fraction] 41.9 % Normal 37-47 [facility] Comment on above: Performed By: #### L 100.0500 #### [facility] [address] [place], [address] Hemoglobin (Bld) [Mass/Vol] 13.8 g/dL Normal 12.0-15.0 [facility] Comment on above: Performed By: #### L 100.0500 #### [facility] [address] [place], [address] MCH (RBC) [Entitic mass] 30.3 pg Normal 27.0-32.0 [facility] Comment on above: Performed By: #### L 100.0500 #### [facility] [address] [place], [address] MCHC (RBC) [Mass/Vol] 32.9 g/dL Normal 32-36 [facility] Comment on above: Performed By: #### L 100.0500 #### [facility] [address] [place], [address] MCV (RBC) [Entitic vol] 91.9 fL Normal 81-[address] [facility] Comment on above: Performed By: #### L 100.0500 #### [facility] [address] [place], [address] Platelet mean volume (Bld) [Entitic vol] 8.2 fL Normal 6.2-12.0 [facility] Comment on above: Performed By: #### L 100.0500 #### [facility] [address] [place], [address] Platelets (Bld) [#/Vol] 325 10*3/uL Normal 150-450 [facility] Comment on above: Performed By: #### L 100.0500 #### [facility] [address] [place], [address] RBC (Bld) [#/Vol] 4.56 10*6/uL Normal 4.2-5.4 [facility] Comment on above: Performed By: #### L 100.0500 #### [facility] [address] [place], [address] RDW SD 42.5 fl Normal 35.1-43.9 [facility] Comment on above: Performed By: #### L 100.0500 #### [facility] [address] [place], [address] WBC (Bld) [#/Vol] 6.6 10*3/uL Normal 4.4-11.0 [facility] Comment on above: Performed By: #### L 100.0500 #### [facility] [address] [place], [address] Carbon dioxide, total [Moles /volume] in Central venous bloodOrdered By: Veto Lynne on 08-30-2024 CO2 [Moles/Vol] 19.7 mmol/L Low 21.0-32.0 [facility] Chloride assayOrdered By: Damion Lynne on 08-30-2024 Chloride [Moles/Vol] 107 mmol/L 98-108 [facility] Erythrocyte distribution wid th ratioOrdered By: Veto Lynne on 08-30-2024 Erythrocyte distribution width (RBC) [Ratio] 12.6 % 11.6-14.6 [facility] Erythrocyte distribution wid th standard deviationOrdered By: Veto Lynne on 08-30-2024 Erythrocyte distribution width (RBC) [Ratio] 42.5 fl 35.1-43.9 [facility] Glomerular filtration rate ( GFR) estimation/1.73 sq m using serum, plasma, or whole bOrdered By: Veto Lynne on 08-30-2024 GFR/1.73 sq M.predicted among non-blacks MDRD (S/P/Bld) [Vol rate/Area] 68 mL/min/{1.73_m2} >60 [facility] Comment on above: mL/min/1.73m2 CKD-EP I Creatinine Equation (2020) Hematocrit Auto (Bld) [Volum e fraction]Ordered By: Veto Lynne on 08-30-2024 Hematocrit (Bld) [Volume fraction] 41.9 % 37-47 [facility] Hemoglobin measurementOrdere d By: Veto Lynne on 08-30-2024 Hemoglobin (Bld) [Mass/Vol] 13.8 g/dL 12.0-15.0 [facility] MCV (mean corpuscular volume ) determinationOrdered By: Veto Lynne on 08-30-2024 MCV (RBC) [Entitic vol] 91.9 fL 81-99 [facility] Mean corpuscular hemoglobin (MCH) determinationOrdered By: Veto Lynne on 08-30-2024 MCH (RBC) [Entitic mass] 30.3 pg 27.0-32.0 [facility] Mean corpuscular hemoglobin concentration (MCHC) determinationOrdered By: Veto Lynne on 08-30-2024 MCHC (RBC) [Mass/Vol] 32.9 g/dL 32-36 [facility] Mean platelet volume determi nationOrdered By: Veto Lynne on 08-30-2024 Platelet mean volume (Bld) [Entitic vol] 8.2 fL 6.2-12.0 [facility] Platelet countOrdered By: Damion Lynne on 08-30-2024 Platelets (Bld) [#/Vol] 325 10*3/uL 150-450 [facility] Potassium measurement (mass/ volume)Ordered By: Veto Lynne on 08-30-2024 Potassium (Unsp spec) [Mass/Vol] 4.2 mmol/L 3.3-5.1 [facility] RBC Auto (Bld) [#/Vol]Ordere d By: Veto Lynne on 08-30-2024 RBC (Bld) [#/Vol] 4.56 10*6/uL 4.2-5.4 [facility] Serum creatinine measurement (mass/volume)Ordered By: Veto Lynne on 08-30-2024 Creatinine [Mass/Vol] 0.87 mg/dL 0.70-1.20 [facility] Serum glucose measurement (m ass/volume)Ordered By: Veto Lynne on 08-30-2024 Glucose [Mass/Vol] 132 mg/dL High 70-99 [facility] Serum or plasma calcium rodríguez urement (mass/volume)Ordered By: Vteo Lynne on 08-30-2024 Calcium [Mass/Vol] 8.9 mg/dL 7.6-11.0 [facility] Serum or plasma urea nitroge n measurement (mass/volume)Ordered By: Veto Lynne on 08-30-2024 Urea nitrogen [Mass/Vol] 22 mg/dL High 4- [facility] Sodium levelOrdered By: Sarbjit Lynne on 08-30-2024 Sodium [Moles/Vol] 138 mmol/L 133-145 [facility] White blood cell (WBC) count Ordered By: Veto Lynne on 08-30-2024 WBC (Bld) [#/Vol] 6.6 10*3/uL 4.4-11.0 [facility] Basic Metabolic Profile (BMP )on 08-29-2024 BUN Normal 4- [facility] Comment on above: Result Comment: Kalia dumont via OM: Ordered Performed By: #### L 500.2500 #### [facility] [address] [place], [id number] BUN/CRE Normal 10- [facility] Comment on above: Result Comment: Kalia dumont via OM: Ordered Performed By: #### L 500.2500 #### [facility] [address] [place], [address] Calcium Normal 7.6-11.0 [facility] Comment on above: Result Comment: Canc elled via OM: MD Ordered Performed By: #### L 500.2500 #### [facility] [address] [place], [address] CL Normal 98-108 [facility] Comment on above: Result Comment: Canc elled via OM: MD Ordered Performed By: #### L 500.2500 #### [facility] [address] [place], [address] CO2 Normal 21.0-32.0 [facility] Comment on above: Result Comment: Canc elled via OM: MD Ordered Performed By: #### L 500.2500 #### [facility] [address] [place], [address] CREAT,SERUM Normal 0.70-1.20 [facility] Comment on above: Result Comment: Canc elled via OM: MD Ordered Performed By: #### L 500.2500 #### [facility] [address] [place], [address] eGFR Normal >60 [facility] Comment on above: Result Comment: Canc elled via OM: MD Ordered Performed By: #### L 500.2500 #### [facility] [address] [place], [address] GAP Normal 5-15 [facility] Comment on above: Result Comment: Canc elled via OM: MD Ordered Performed By: #### L 500.2500 #### [facility] [address] [place], [address] GLU Normal 70-99 [facility] Comment on above: Result Comment: Canc elled via OM: MD Ordered Performed By: #### L 500.2500 #### [facility] [address] [place], [address] Potassium Normal 3.3-5.1 [facility] Comment on above: Result Comment: Canc elled via OM: MD Ordered Performed By: #### L 500.2500 #### [facility] [address] [place], [address] Basic Metabolic Profile (BMP) Normal 133-145 [facility] Comment on above: Result Comment: Canc elled via OM: MD Ordered Performed By: #### L 500.2500 #### [facility] [address] [place], [address] Bedside Glucoseon 08-29-2024 FINGERSTICK GLU 132 mg/dL High 74-106 [facility] Comment on above: Result Comment: SAMANTA GEMENT OF PATIENT CARE PER NURSING PROTOCOL Performed By: #### L 501.080 #### [facility] [address] [place], [address] FINGERSTICK GLU 131 mg/dL High 74-106 [facility] Comment on above: Result Comment: SAMANTA GEMENT OF PATIENT CARE PER NURSING PROTOCOL Performed By: #### L 501.080 #### [facility] [address] [place], [address] FINGERSTICK GLU 120 mg/dL High 74-106 [facility] Comment on above: Result Comment: SAMANTA GEMENT OF PATIENT CARE PER NURSING PROTOCOL Performed By: #### L 501.080 #### [facility] [address] [place], [address] CBC-Complete Blood Cnt No Di ffon 08-29-2024 HCT Normal 37-47 [facility] Comment on above: Result Comment: Canc elled via OM: MD Ordered Performed By: #### L 501.080 #### [facility] [address] [place], [address] HGB Normal 12.0-15.0 [facility] Comment on above: Result Comment: Canc elled via OM: MD Ordered Performed By: #### L 501.080 #### [facility] [address] [place], [address] MCH Normal 27.0-32.0 [facility] Comment on above: Result Comment: Canc elled via OM: MD Ordered Performed By: #### L 501.080 #### [facility] [address] [place], [address] MCHC Normal 32-36 [facility] Comment on above: Result Comment: Canc elled via OM: MD Ordered Performed By: #### L 501.080 #### [facility] [address] [place], [address] MCV Normal 81-99 [facility] Comment on above: Result Comment: Canc elled via OM: MD Ordered Performed By: #### L 501.080 #### [facility] [address] [place], [address] PLT Normal 150-450 [facility] Comment on above: Result Comment: Canc elled via OM: MD Ordered Performed By: #### L 501.080 #### [facility] [address] [place], [address] RBC Normal 4.2-5.4 [facility] Comment on above: Result Comment: Canc elled via OM: MD Ordered Performed By: #### L 501.080 #### [facility] [address] [place], [address] RDW CV Normal 11.6-14.6 [facility] Comment on above: Result Comment: Canc elled via OM: MD Ordered Performed By: #### L 501.080 #### [facility] [address] [place], [address] RDW SD Normal 35.1-43.9 [facility] Comment on above: Result Comment: Canc elled via OM: MD Ordered Performed By: #### L 501.080 #### [facility] [address] [place], [address] WBC Normal 4.4-11.0 [facility] Comment on above: Result Comment: Kalia dumont via OM: Ordered Performed By: #### L 501.080 #### [facility] [address] [place], [address] Glucose measurement at [facility] deOrdered By: Veto Lynne on 08-29-2024 Glucose [Mass/Vol] 132 mg/dL High 74-106 [facility] Comment on above: MANAGEMENT OF PATIEN T CARE PER NURSING PROTOCOL Basic Metabolic Profile (BMP )on 08-28-2024 BUN/CRE 17.3 RATIO Normal 10-20 [facility] Comment on above: Performed By: #### L 100.0100, L500.2500 #### [facility] [address] [place], [address] Calcium [Mass/Vol] 8.7 mg/dL Normal 7.6-11.0 [facility] Comment on above: Performed By: #### L 100.0100, L500.2500 #### [facility] [address] [place], [address] Chloride [Moles/Vol] 109 mmol/L High 98-108 [facility] Comment on above: Performed By: #### L 100.0100, L500.2500 #### [facility] [address] [place], [address] CO2 [Moles/Vol] 23.2 mmol/L Normal 21.0-32.0 [facility] Comment on above: Performed By: #### L 100.0100, L500.2500 #### [facility] [address] [place], [address] Creatinine [Mass/Vol] 0.87 mg/dL Normal 0.70-1.20 [facility] Comment on above: Performed By: #### L 100.0100, L500.2500 #### [facility] [address] [place], [address] ECRCL 48.93 ml/min Low 50-250 [facility] Comment on above: Performed By: #### L 100.0100, L500.2500 #### [facility] [address] [place], [address] GAP 8 Normal 5-15 [facility] Comment on above: Performed By: #### L 100.0100, L500.2500 #### [facility] [address] [place], [address] GFR/1.73 sq M.predicted among non-blacks MDRD (S/P/Bld) [Vol rate/Area] 68 mL/min/{1.73_m2} Normal >60 [facility] Comment on above: Result Comment: mL/m in/1.73m2 CKD-EPI Creatinine Equation (2020) Performed By: #### L 100.0100, L500.2500 #### [facility] [address] [place], [address] Glucose [Mass/Vol] 138 mg/dL High 70-99 [facility] Comment on above: Performed By: #### L 100.0100, L500.2500 #### [facility] [address] [place], [address] Potassium [Moles/Vol] 4.8 mmol/L Normal 3.3-5.1 [facility] Comment on above: Performed By: #### L 100.0100, L500.2500 #### [facility] [address] [place], [address] Sodium [Moles/Vol] 140 mmol/L Normal 133-145 [facility] Comment on above: Performed By: #### L 100.0100, L500.2500 #### [facility] [address] [place], [address] Urea nitrogen [Mass/Vol] 15 mg/dL Normal 4-19 [facility] Comment on above: Performed By: #### L 100.0100, L500.2500 #### [facility] [address] [place], [address] Bedside Glucoseon 08-28-2024 FINGERSTICK GLU 142 mg/dL High 74-106 [facility] Comment on above: Result Comment: SAMANTA GEMENT OF PATIENT CARE PER NURSING PROTOCOL Performed By: #### L 501.080 #### [facility] [address] [place], [address] FINGERSTICK GLU 151 mg/dL High 74-106 [facility] Comment on above: Result Comment: SAMANTA GEMENT OF PATIENT CARE PER NURSING PROTOCOL Performed By: #### L 100.0100, L500.2500 #### [facility] [address] [place], [address] FINGERSTICK GLU 106 mg/dL Normal 74-106 [facility] Comment on above: Result Comment: SAMANTA GEMENT OF PATIENT CARE PER NURSING PROTOCOL Performed By: #### L 100.0100, L500.2500 #### [facility] [address] [place], [address] FINGERSTICK GLU 121 mg/dL High 74-106 [facility] Comment on above: Result Comment: SAMANTA GEMENT OF PATIENT CARE PER NURSING PROTOCOL Performed By: #### L 501.080 #### [facility] [address] [place], [address] CBC-Complete Blood Cnt No Di ffon 08-28-2024 Erythrocyte distribution width (RBC) [Ratio] 12.5 % Normal 11.6-14.6 [facility] Comment on above: Performed By: #### L 100.0100, L500.2500 #### [facility] [address] [place], [address] Hematocrit (Bld) [Volume fraction] 37.9 % Normal 37-47 [facility] Comment on above: Performed By: #### L 100.0100, L500.2500 #### [facility] [address] [place], [address] Hemoglobin (Bld) [Mass/Vol] 12.6 g/dL Normal 12.0-15.0 [facility] Comment on above: Performed By: #### L 100.0100, L500.2500 #### [facility] [address] [place], [address] MCH (RBC) [Entitic mass] 30.7 pg Normal 27.0-32.0 [facility] Comment on above: Performed By: #### L 100.0100, L500.2500 #### [facility] [address] [place], [address] MCHC (RBC) [Mass/Vol] 33.2 g/dL Normal 32-36 [facility] Comment on above: Performed By: #### L 100.0100, L500.2500 #### [facility] [address] [place], [address] MCV (RBC) [Entitic vol] 92.4 fL Normal 81-[address] [facility] Comment on above: Performed By: #### L 100.0100, L500.2500 #### [facility] [address] [place], [address] Platelet mean volume (Bld) [Entitic vol] 8.2 fL Normal 6.2-12.0 [facility] Comment on above: Performed By: #### L 100.0100, L500.2500 #### [facility] [address] [place], [address] Platelets (Bld) [#/Vol] 274 10*3/uL Normal 150-450 [facility] Comment on above: Performed By: #### L 100.0100, L500.2500 #### [facility] [address] [place], [address] RBC (Bld) [#/Vol] 4.10 10*6/uL Low 4.2-5.4 [facility] Comment on above: Performed By: #### L 100.0100, L500.2500 #### [facility] [address] [place], [address] RDW SD 42.5 fl Normal 35.1-43.9 [facility] Comment on above: Performed By: #### L 100.0100, L500.2500 #### [facility] [address] [place], [address] WBC (Bld) [#/Vol] 5.8 10*3/uL Normal 4.4-11.0 [facility] Comment on above: Performed By: #### L 100.0100, L500.2500 #### [facility] [address] [place], [address] Urine Cultureon 08-28-2024 [facility] Proteus mirabilis [place] Count 25,000-50,000 Proteus mirabilis: REACTION Ampicillin [place] <=2 Ampicillin+Sulbac [place] <=2 S Cefepime [place] <=0.12 S cefTRIAXone [place] <=0.25 S Ciprofloxacin [place] <=0.06 S Gentamicin [place] <=1 S levoFLOXacin [place] <=0.12 S Meropenem [place] 0.5 S Nitrofurantoin [place] R Pip+Tazo [place] <=4 S TMP SMX [place] <=20 S Normal [facility] Comment on above: Performed By: #### L 501.080 #### [facility] [facility] [address] [place], [address] Basic Metabolic Profile (BMP )on 08-27-2024 BUN Normal 4-19 [facility] Comment on above: Result Comment: Canc elled via OM: MD Ordered Performed By: #### L 501.080 #### [facility] [address] [place], [address] BUN/CRE Normal 10-20 [facility] Comment on above: Result Comment: Canc elled via OM: MD Ordered Performed By: #### L 501.080 #### [facility] [address] [place], [address] Calcium Normal 7.6-11.0 [facility] Comment on above: Result Comment: Canc elled via OM: MD Ordered Performed By: #### L 501.080 #### [facility] [address] [place], [address] CL Normal 98-108 [facility] Comment on above: Result Comment: Canc elled via OM: MD Ordered Performed By: #### L 501.080 #### [facility] [address] [place], [address] CO2 Normal 21.0-32.0 [facility] Comment on above: Result Comment: Canc elled via OM: MD Ordered Performed By: #### L 501.080 #### [facility] [address] [place], [address] CREAT,SERUM Normal 0.70-1.20 [facility] Comment on above: Result Comment: Canc elled via OM: MD Ordered Performed By: #### L 501.080 #### [facility] [address] [place], [address] eGFR Normal >60 [facility] Comment on above: Result Comment: Canc elled via OM: MD Ordered Performed By: #### L 501.080 #### [facility] [address] [place], [address] GAP Normal 5-15 [facility] Comment on above: Result Comment: Canc elled via OM: MD Ordered Performed By: #### L 501.080 #### [facility] [address] [place], [address] GLU Normal 70-99 [facility] Comment on above: Result Comment: Canc elled via OM: MD Ordered Performed By: #### L 501.080 #### [facility] [address] [place], [address] Potassium Normal 3.3-5.1 [facility] Comment on above: Result Comment: Canc elled via OM: MD Ordered Performed By: #### L 501.080 #### [facility] [address] [place], [address] Basic Metabolic Profile (BMP) Normal 133-145 [facility] Comment on above: Result Comment: Canc elled via OM: MD Ordered Performed By: #### L 501.080 #### [facility] [address] [place], [address] Bedside Glucoseon 08-27-2024 FINGERSTICK GLU 119 mg/dL High 74-106 [facility] Comment on above: Result Comment: SAMANTA GEMENT OF PATIENT CARE PER NURSING PROTOCOL Performed By: #### L 100.0100, L500.2500 #### [facility] [address] [place], [address] FINGERSTICK GLU 168 mg/dL High 74-106 [facility] Comment on above: Result Comment: SAMANTA GEMENT OF PATIENT CARE PER NURSING PROTOCOL Performed By: #### L 100.0100, L500.2500 #### [facility] [address] [place], [address] FINGERSTICK GLU 138 mg/dL High 74-106 [facility] Comment on above: Result Comment: SAMANTA GEMENT OF PATIENT CARE PER NURSING PROTOCOL Performed By: #### L 501.080 #### [facility] [address] [place], [address] FINGERSTICK GLU 125 mg/dL High 74-106 [facility] Comment on above: Result Comment: SAMANTA CHEEMA OF PATIENT CARE PER NURSING PROTOCOL Performed By: #### L 501.080 #### [facility] [address] [place], [address] CBC-Complete Blood Cnt No Di ffon 08-27-2024 HCT Normal 37-47 [facility] Comment on above: Result Comment: Canc elled via OM: MD Ordered Performed By: #### L 100.0500 #### [facility] [address] [place], [address] HGB Normal 12.0-15.0 [facility] Comment on above: Result Comment: Canc elled via OM: MD Ordered Performed By: #### L 100.0500 #### [facility] [address] [place], [address] MCH Normal 27.0-32.0 [facility] Comment on above: Result Comment: Canc elled via OM: MD Ordered Performed By: #### L 100.0500 #### [facility] [address] [place], [address] MCHC Normal 32-36 [facility] Comment on above: Result Comment: Canc elled via OM: MD Ordered Performed By: #### L 100.0500 #### [facility] [address] [place], [address] MCV Normal 81-99 [facility] Comment on above: Result Comment: Canc elled via OM: MD Ordered Performed By: #### L 100.0500 #### [facility] [address] [place], [address] PLT Normal 150-450 [facility] Comment on above: Result Comment: Canc elled via OM: MD Ordered Performed By: #### L 100.0500 #### [facility] [address] [place], [address] RBC Normal 4.2-5.4 [facility] Comment on above: Result Comment: Canc elled via OM: MD Ordered Performed By: #### L 100.0500 #### [facility] [address] [place], [address] RDW CV Normal 11.6-14.6 [facility] Comment on above: Result Comment: Canc elled via OM: MD Ordered Performed By: #### L 100.0500 #### [facility] [address] [place], [address] RDW SD Normal 35.1-43.9 [facility] Comment on above: Result Comment: Canc elled via OM: MD Ordered Performed By: #### L 100.0500 #### [facility] [address] [place], [address] WBC Normal 4.4-11.0 [facility] Comment on above: Result Comment: Canc elled via OM: MD Ordered Performed By: #### L 100.0500 #### [facility] [address] [place], [address] Absolute lymphocyte countOrd ered By: White on 08-26-2024 Lymphocytes Auto (Unsp spec) [#/Vol] 1.46 10*3/uL 0.83-4.51 [facility] Absolute neutrophil countOrd ered By: on 08-26-2024 Neutrophils (Bld) [#/Vol] 3.6 10*3/uL 2.0-7.7 [facility] Automated lymphocyte count a s percentage of total leukocytesOrdered By: on 08-26-2024 Lymphocytes/100 WBC Auto (Unsp spec) 23.8 % 19-41 [facility] Basophil percentageOrdered B y: on 08-26-2024 Basophils/100 WBC (Bld) 0.8 % 0-[address] [facility] Bedside Glucoseon 08-26-2024 FINGERSTICK GLU 167 mg/dL High 74-106 [facility] Comment on above: Result Comment: SAMANTA GEMENT OF PATIENT CARE PER NURSING PROTOCOL Performed By: #### L 501.080 #### [facility] [address] [place], [address] FINGERSTICK GLU 116 mg/dL High 74-106 [facility] Comment on above: Result Comment: SAMANTA GEMENT OF PATIENT CARE PER NURSING PROTOCOL Performed By: #### L 501.080 #### [facility] [address] [place], [address] FINGERSTICK GLU 145 mg/dL High 74-106 [facility] Comment on above: Result Comment: SAMANTA GEMENT OF PATIENT CARE PER NURSING PROTOCOL Performed By: #### L 100.0100, L500.2500 #### [facility] [address] [place], [address] FINGERSTICK GLU 126 mg/dL High 74-106 [facility] Comment on above: Result Comment: SAMANTA GEMENT OF PATIENT CARE PER NURSING PROTOCOL Performed By: #### L 100.0500 #### [facility] [address] [place], [address] Bilirubin, totalOrdered By: Isabel Michelle on 08-26-2024 Bilirubin [Mass/Vol] 0.34 mg/dL 0.00-1.30 [facility] CBC W/Diff, Automatedon 05-0 Absolute Lymph 1.46 X10 3/uL Normal 0.83-4.51 [facility] Comment on above: Performed By: #### L 501.080 #### [facility] [address] [place], [address] Absolute Neut 3.6 X10 3/uL Normal 2.0-7.7 [facility] Comment on above: Performed By: #### L 501.080 #### [facility] [address] [place], [address] Basophils/100 WBC (Bld) 0.8 % Normal 0-[address] [facility] Comment on above: Performed By: #### L 501.080 #### [facility] [address] [place], [address] Eosinophils/100 WBC (Bld) 7.0 % High 0-5 [facility] Comment on above: Performed By: #### L 501.080 #### [facility] [address] [place], [address] Erythrocyte distribution width (RBC) [Ratio] 12.5 % Normal 11.6-14.6 [facility] Comment on above: Performed By: #### L 501.080 #### [facility] [address] [place], [address] Hematocrit (Bld) [Volume fraction] 34.6 % Low 37-47 [facility] Comment on above: Performed By: #### L 501.080 #### [facility] [address] [place], [address] Hemoglobin (Bld) [Mass/Vol] 11.6 g/dL Low 12.0-15.0 [facility] Comment on above: Performed By: #### L 501.080 #### [facility] [address] [place], [address] IG% 0.500 Normal 0.0-0.9 [facility] Comment on above: Result Comment: IG% - Immature Granulocytes (promyelocytes, myelocytes and metamyelocytes) > 1% indicates that a LEFT SHIFT is Present. Performed By: #### L 501.080 #### [facility] [address] [place], [address] Lymphocytes/100 WBC (Bld) 23.8 % Normal 19-41 [facility] Comment on above: Performed By: #### L 501.080 #### [facility] [address] [place], [address] MCH (RBC) [Entitic mass] 30.6 pg Normal 27.0-32.0 [facility] Comment on above: Performed By: #### L 501.080 #### [facility] [address] [place], [address] MCHC (RBC) [Mass/Vol] 33.5 g/dL Normal 32-36 [facility] Comment on above: Performed By: #### L 501.080 #### [facility] [address] [place], [address] MCV (RBC) [Entitic vol] 91.3 fL Normal 81-99 [facility] Comment on above: Performed By: #### L 501.080 #### [facility] [address] [place], [address] Monocytes/100 WBC (Bld) 9.3 % Normal 0-10 [facility] Comment on above: Performed By: #### L 501.080 #### [facility] [address] [place], [address] Neutrophils/100 WBC (Bld) 58.6 % Normal 47-70 [facility] Comment on above: Performed By: #### L 501.080 #### [facility] [address] [place], [address] Nucleated RBC (Bld) [#/Vol] 0 10*3/uL Normal 0-5 [facility] Comment on above: Performed By: #### L 501.080 #### [facility] [address] [place], [address] Platelet mean volume (Bld) [Entitic vol] 8.1 fL Normal 6.2-12.0 [facility] Comment on above: Performed By: #### L 501.080 #### [facility] [address] [place], [address] Platelets (Bld) [#/Vol] 279 10*3/uL Normal 150-450 [facility] Comment on above: Performed By: #### L 501.080 #### [facility] [address] [place], [address] RBC (Bld) [#/Vol] 3.79 10*6/uL Low 4.2-5.4 [facility] Comment on above: Performed By: #### L 501.080 #### [facility] [address] [place], [address] RDW SD 41.5 fl Normal 35.1-43.9 [facility] Comment on above: Performed By: #### L 501.080 #### [facility] [address] [place], [address] WBC (Bld) [#/Vol] 6.1 10*3/uL Normal 4.4-11.0 [facility] Comment on above: Performed By: #### L 501.080 #### [facility] [address] [place], [address] CPK Total, Creatine Kinaseon 08-26-2024 CPK TOTAL 150 U/L Normal 24-195 [facility] Comment on above: Order Comment: *ADD ON- WG6/6/M N O* Performed By: #### L 100.0500 #### [facility] [address] [place], [address] Comprehensive Metabolic Prof ilon 08-26-2024 Albumin [Mass/Vol] 3.2 g/dL Low 3.4-4.8 [facility] Comment on above: Performed By: #### L 501.080 #### [facility] [address] [place], [address] Albumin/Globulin [Mass ratio] 1.3 {ratio} Normal 0.9-2.4 [facility] Comment on above: Performed By: #### L 501.080 #### [facility] [address] [place], [address] ALK PHOS 38 U/L Normal 35-104 [facility] Comment on above: Performed By: #### L 501.080 #### [facility] [address] [place], [address] ALT [Catalytic activity/Vol] 16 U/L Normal <=34 [facility] Comment on above: Performed By: #### L 501.080 #### [facility] [address] [place], [address] AST [Catalytic activity/Vol] 27 U/L Normal <=31 [facility] Comment on above: Performed By: #### L 501.080 #### [facility] [address] [place], [address] Bilirubin [Mass/Vol] 0.34 mg/dL Normal 0.00-1.30 [facility] Comment on above: Performed By: #### L 501.080 #### [facility] [address] [place], [address] BUN/CRE 24.4 RATIO High 10-20 [facility] Comment on above: Performed By: #### L 501.080 #### [facility] [address] [place], [address] Calcium [Mass/Vol] 8.4 mg/dL Normal 7.6-11.0 [facility] Comment on above: Performed By: #### L 501.080 #### [facility] [address] [place], [address] Chloride [Moles/Vol] 106 mmol/L Normal 98-108 [facility] Comment on above: Performed By: #### L 501.080 #### [facility] [address] [place], [address] CO2 [Moles/Vol] 20.8 mmol/L Low 21.0-32.0 [facility] Comment on above: Performed By: #### L 501.080 #### [facility] [address] [place], [address] Creatinine [Mass/Vol] 1.00 mg/dL Normal 0.70-1.20 [facility] Comment on above: Performed By: #### L 501.080 #### [facility] [address] [place], [address] ECRCL 42.72 ml/min Low 50-250 [facility] Comment on above: Performed By: #### L 501.080 #### [facility] [address] [place], [address] GAP 10 Normal 5-15 [facility] Comment on above: Performed By: #### L 501.080 #### [facility] [address] [place], [address] GFR/1.73 sq M.predicted among non-blacks MDRD (S/P/Bld) [Vol rate/Area] 58 mL/min/{1.73_m2} Low >60 [facility] Comment on above: Result Comment: mL/m in/1.73m2 CKD-EPI Creatinine Equation (2020) Performed By: #### L 501.080 #### [facility] [address] [place], [address] Globulin (S) [Mass/Vol] 2.4 g/dL Normal 2.2-4.2 [facility] Comment on above: Performed By: #### L 501.080 #### [facility] [address] [place], [address] Glucose [Mass/Vol] 116 mg/dL High 70-99 [facility] Comment on above: Performed By: #### L 501.080 #### [facility] [address] [place], [address] Potassium [Moles/Vol] 3.9 mmol/L Normal 3.3-5.1 [facility] Comment on above: Performed By: #### L 501.080 #### [facility] [address] [place], [address] Sodium [Moles/Vol] 137 mmol/L Normal 133-145 [facility] Comment on above: Performed By: #### L 501.080 #### [facility] [address] [place], [address] T PROT 5.6 g/dL Low 5.9-8.4 [facility] Comment on above: Performed By: #### L 501.080 #### [facility] [address] [place], [address] Urea nitrogen [Mass/Vol] 24 mg/dL High 4-19 [facility] Comment on above: Performed By: #### L 501.080 #### [facility] [address] [place], [address] Eosinophil percentageOrdered By: on 08-26-2024 Eosinophils/100 WBC (Bld) 7.0 % High 0-5 [facility] Immature granulocytes/100 WB C Auto (Bld)Ordered By: on 08-26-2024 Immature granulocytes/100 WBC (Bld) 0.500 % 0.0-0.9 [facility] Comment on above: IG% - Immature Granu locytes (promyelocytes, myelocytes and metamyelocytes) > 1% indicates that a LEFT SHIFT is Present. Laboratory - Chemistry and C hemistry - challengeOrdered By: on 08-26-2024 AST [Catalytic activity/Vol] 27 U/L <32 [facility] Monocyte percentageOrdered B y: on 08-26-2024 Monocytes/100 WBC (Bld) 9.3 % 0-[address] [facility] Neutrophil percentageOrdered By: on 08-26-2024 Neutrophils/100 WBC (Bld) 58.6 % 47-70 [facility] Nucleated red blood cell per centageOrdered By: Isabel Viviana on 08-26-2024 Nucleated RBC/100 WBC (Bld) [Ratio] 0 % 0-5 [facility] Serum globulin measurementOr dered By: Isabel Michelle on 08-26-2024 Globulin (S) [Mass/Vol] 2.4 g/dL 2.2-4.[address] [facility] Serum or plasma alanine sanders otransferase (ALT) measurementOrdered By: Isabel Michelle on 08-26-2024 ALT [Catalytic activity/Vol] 16 U/L <35 [facility] Serum or plasma albumin rodríguez urement (mass/volume)Ordered By: Isabel Viviana on 08-26-2024 Albumin [Mass/Vol] 3.2 g/dL Low 3.4-4.8 [facility] Serum or plasma albumin/glob ulin mass ratioOrdered By: Isabel Viviana 08-26-2024 Albumin/Globulin [Mass ratio] 1.3 {ratio} 0.9-2.4 [facility] Serum or plasma alkaline justin sphatase measurementOrdered By: Isabel Michelle on 08-26-2024 ALP [Catalytic activity/Vol] 38 U/L 35-104 [facility] Total proteinOrdered By: Corinna Michelle on 08-26-2024 Protein [Mass/Vol] 5.6 g/dL Low 5.9-8.4 [facility] 12 Lead EKGon 08-25-2024 12 Lead EKG [facility] [address] [place] [address] 12 Lead EKG 08/25/24 2117 MR#: [id number] Acct: [id number] Name: JUDI KRAUSE Rep #: [id number] : 1945 79 From: Jone Fishman MD Attending Dr: Dr. Veto Lynne, Status : ADM IN Ordering Dr: Hermes Salas DO Date: 08/25/24 [place] [facility] [place] F C Admitted: 08/25/24 Test Reason : Blood Pressure : */* mmHG Vent. Rate : 77 BPM Atrial Rate : 77 BPM P-R Int : 224 ms QRS Dur : 94 ms QT Int : 404 ms P-R-T Axes : 49 -2 51 degrees QTcB Int : 457 ms Sinus rhythm with 1st degree A-V block Otherwise normal ECG Confirmed by RAFAEL TAVERA, JONE ([id number]), associate editor APURVA CAMEJO ([id number]) on 08/26/2024 1:29:01 PM Referred By: ES Confirmed By: JONE FISHMAN MD 08/26/24 1329 Date Jone Fishman MD CC: Dr. Veto Lynne DO; Dr. Ruddy Cooper MD; Dr. Hermes Salas DO Signed Normal [facility] Activated partial thrombopla stin time (aPTT) in platelet poor plasma by coagulation aOrdered By: Hermes Salas on 08-25-2024 aPTT Coag (PPP) [Time] 25.4 s 24.1-36.2 [facility] Basic Metabolic Profile (BMP )on 08-25-2024 BUN/CRE 23.0 RATIO High 10-20 [facility] Comment on above: Performed By: #### L 501.080 #### [facility] [address] [place], [address] Calcium [Mass/Vol] 9.9 mg/dL Normal 7.6-11.0 [facility] Comment on above: Performed By: #### L 501.080 #### [facility] [address] [place], [address] Chloride [Moles/Vol] 101 mmol/L Normal 98-108 [facility] Comment on above: Performed By: #### L 501.080 #### [facility] [address] [place], [address] CO2 [Moles/Vol] 23.5 mmol/L Normal 21.0-32.0 [facility] Comment on above: Performed By: #### L 501.080 #### [facility] [address] [place], [address] Creatinine [Mass/Vol] 1.25 mg/dL High 0.70-1.20 [facility] Comment on above: Performed By: #### L 501.080 #### [facility] [address] [place], [address] ECRCL 34.38 ml/min Low 50-250 [facility] Comment on above: Performed By: #### L 501.080 #### [facility] [address] [place], [address] GAP 14 Normal 5-15 [facility] Comment on above: Performed By: #### L 501.080 #### [facility] [address] [place], [address] GFR/1.73 sq M.predicted among non-blacks MDRD (S/P/Bld) [Vol rate/Area] 44 mL/min/{1.73_m2} Low >60 [facility] Comment on above: Result Comment: mL/m in/1.73m2 CKD-EPI Creatinine Equation (2020) Performed By: #### L 501.080 #### [facility] [address] [place], [address] Glucose [Mass/Vol] 89 mg/dL Normal 70-99 [facility] Comment on above: Performed By: #### L 501.080 #### [facility] [address] [place], [address] Potassium [Moles/Vol] 4.7 mmol/L Normal 3.3-5.1 [facility] Comment on above: Result Comment: Hemo lysis present, Results??could be affected. ?? Performed By: #### L 501.080 #### [facility] [address] [place], [address] Sodium [Moles/Vol] 138 mmol/L Normal 133-145 [facility] Comment on above: Performed By: #### L 501.080 #### [facility] [facility] [address] [place], [address] Urea nitrogen [Mass/Vol] 29 mg/dL High - [facility] Comment on above: Performed By: #### L 501.080 #### [facility] [address] [place], [address] Bilirubin Test strip Ql (U)O rdered By: Hermes Salas on 08-25-2024 Bilirubin Ql (U) Negative Negative [facility] Bilirubin directOrdered By: Hermes Salas on 08-25-2024 Bilirubin.direct [Mass/Vol] 0.13 mg/dL 0.00-0.30 [facility] Comment on above: Hemolysis present, R esults could be affected. Brain/Head without Contrasto n 08-25-2024 Brain/Head without Contrast [facility] Imaging Services [address] [place], [place] [address] Brain/Head without Contrast MR#: [id number] Acct: [id number] Name: JUDI KRAUSE Rep #: [id number] : 1945 F 79 From: Kush calderón MD PCP: Dr. Ruddy Cooper MD Status: PRE ER Study: Brain/Head without Contrast Date of Exam: 07/29 Exam# [id number] Ordering Dr: Hermes Salas DO PROCEDURE: BRAIN/HEAD [...] Ruddy Cooper MD; Dr. Hermes Salas DO Showroom Salesperson: Signed Normal [facility] CBC W/Diff, Automatedon - 0-2024 Absolute Lymph 2.25 X10 3/uL Normal 0.83-4.51 [facility] Comment on above: Performed By: #### L 501.080 #### [facility] [address] [place], [address] Absolute Neut 7.2 X10 3/uL Normal 2.0-7.7 [facility] Comment on above: Performed By: #### L 501.080 #### [facility] [address] [place], [address] Basophils/100 WBC (Bld) 0.6 % Normal 0-[address] [facility] Comment on above: Performed By: #### L 501.080 #### [facility] [address] [place], [address] Eosinophils/100 WBC (Bld) 3.4 % Normal 0-5 [facility] Comment on above: Performed By: #### L 501.080 #### [facility] [address] [place], [address] Erythrocyte distribution width (RBC) [Ratio] 12.4 % Normal 11.6-14.6 [facility] Comment on above: Performed By: #### L 501.080 #### [facility] [address] [place], [address] Hematocrit (Bld) [Volume fraction] 39.4 % Normal 37-47 [facility] Comment on above: Performed By: #### L 501.080 #### [facility] [address] [place], [address] Hemoglobin (Bld) [Mass/Vol] 13.3 g/dL Normal 12.0-15.0 [facility] Comment on above: Performed By: #### L 501.080 #### [facility] [address] [place], [address] IG% 0.500 Normal 0.0-0.9 [facility] Comment on above: Result Comment: IG% - Immature Granulocytes (promyelocytes, myelocytes and metamyelocytes) > 1% indicates that a LEFT SHIFT is Present. Performed By: #### L 501.080 #### [facility] [address] [place], [address] Lymphocytes/100 WBC (Bld) 20.8 % Normal 19-41 [facility] Comment on above: Performed By: #### L 501.080 #### [facility] [address] [place], [address] MCH (RBC) [Entitic mass] 30.8 pg Normal 27.0-32.0 [facility] Comment on above: Performed By: #### L 501.080 #### [facility] [address] [place], [address] MCHC (RBC) [Mass/Vol] 33.8 g/dL Normal 32-36 [facility] Comment on above: Performed By: #### L 501.080 #### [facility] [address] [place], [address] MCV (RBC) [Entitic vol] 91.2 fL Normal 81-[address] [facility] Comment on above: Performed By: #### L 501.080 #### [facility] [address] [place], [address] Monocytes/100 WBC (Bld) 8.2 % Normal 0-[address] [facility] Comment on above: Performed By: #### L 501.080 #### [facility] [address] [place], [address] Neutrophils/100 WBC (Bld) 66.5 % Normal 47-70 [facility] Comment on above: Performed By: #### L 501.080 #### [facility] [address] [place], [address] Nucleated RBC (Bld) [#/Vol] 0 10*3/uL Normal 0-5 [facility] Comment on above: Performed By: #### L 501.080 #### [facility] [address] [place], [address] Platelet mean volume (Bld) [Entitic vol] 8.8 fL Normal 6.2-12.0 [facility] Comment on above: Performed By: #### L 501.080 #### [facility] [address] [place], [address] Platelets (Bld) [#/Vol] 341 10*3/uL Normal 150-450 [facility] Comment on above: Performed By: #### L 501.080 #### [facility] [address] [place], [address] RBC (Bld) [#/Vol] 4.32 10*6/uL Normal 4.2-5.4 [facility] Comment on above: Performed By: #### L 501.080 #### [facility] [address] [place], [address] RDW SD 41.2 fl Normal 35.1-43.9 [facility] Comment on above: Performed By: #### L 501.080 #### [facility] [address] [place], [place], [address] WBC (Bld) [#/Vol] 10.8 10*3/uL Normal 4.4-11.0 [facility] Comment on above: Performed By: #### L 501.080 #### [facility] [address] [place], [address] CT Chest, Abd, Pel w/Contras ton 08-25-2024 CT Chest, Abd, Pel w/Contrast [facility] Imaging Services [address] [facility] [place], [place] [address] CT Chest, Abd, Pel w/Contrast MR#: [id number] Acct: [id number] Name: JUDI KRAUSE Rep #: [id number] : 1945 F 79 From: Kush calderón MD PCP: Dr. Ruddy Cooper MD Status: [facility] Study: CT Chest, Abd, Pel w/Contrast Date of Exam: Exam# [id number] Ordering Dr: Hermes Salas DO PROCEDURE: CT [...] Other findings as described above. Reading Location: [facility] CC: Dr. Ruddy Cooper MD; Dr. Hermes Salas DO Showroom Salesperson: Signed Normal [facility] Emergency Department Summary on 08-25-2024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 [facility] has carefully reviewed the data and [...] their providers when to stop screening mammograms. Doormaker(s): RT Tania(R)(M), [facility]; Apurva Kelley RT(R)(M), [facility] OVERALL STUDY BIRADS: 2 Benign finding Showroom Salesperson: Nate Transcribe Date/Time: Jan 03 2023 12:19P Dictated by: ENRIKE BETTS MD This examination was interpreted and the report reviewed and electronically signed by: ENRIKE BETTS MD on Jan 03 2023 2:33PM EST [facility] WILLIE DIAG W AVNI LEFTon 07-24 [facility] MRA BRAIN WO/W IVCONon 02-18 [facility] WILLIE SCREENING W TOMOon 11-29 [facility] CBC panel Auto (Bld)on 10-17 Erythrocyte distribution width (RBC) [Ratio] 12.8 % 11.5 - 15.0 % [facility] Hematocrit (Bld) [Volume fraction] 43.9 % 36.0 - 46.0 % [facility] Hemoglobin (Bld) [Mass/Vol] 14.2 g/dL 11.5 - 15.5 g/dL [facility] MCH (RBC) [Entitic mass] 30.2 pg 26.0 - 34.0 pg [facility] MCHC (RBC) [Mass/Vol] 32.3 g/dL 30.5 - 36.0 g/dL [facility] MCV (RBC) [Entitic vol] 93.4 fL 80.0 - 100.0 fL [facility] Nucleated RBC (Bld) [#/Vol] <0.01 k/uL [facility] Platelet mean volume (Bld) [Entitic vol] 8.7 fL Low 9.0 - 12.7 fL [facility] Platelets (Bld) [#/Vol] 313 10*3/uL 150 - 400 k/uL [facility] RBC (Bld) [#/Vol] 4.70 10*6/uL 3.90 - 5.2 0 m/uL [facility] WBC (Bld) [#/Vol] 7.03 10*3/uL 3.70 - 11. 00 k/uL [facility] Comprehensive metabolic 2000 panelon 10-17-2021 Albumin [Mass/Vol] 4.2 g/dL 3.9 - 4.9 g/dL [facility] ALP [Catalytic activity/Vol] 51 U/L 34 - 123 U/L [facility] ALT [Catalytic activity/Vol] 20 U/L 7 - 38 U/L [facility] Anion gap [Moles/Vol] 15 mmol/L 9 - 18 mmol/L [facility] AST [Catalytic activity/Vol] 28 U/L 13 - 35 U/L [facility] Bilirubin [Mass/Vol] 0.4 mg/dL 0.2 - 1 .3 mg/dL [facility] Calcium [Mass/Vol] 10.3 mg/dL High 8.5 - 10. 2 mg/dL [facility] Chloride [Moles/Vol] 102 mmol/L 97 - 10 5 mmol/L [facility] CO2 [Moles/Vol] 22 mmol/L 22 - 30 mmol/L [facility] Creatinine [Mass/Vol] 0.83 mg/dL 0.58 - 0.96 mg/dL [facility] Estimated Glomerular Filtration Rate 74 mL/min/1.73m >=60 mL/min/1.73m [facility] Glucose [Mass/Vol] 151 mg/dL High 74 - 99 mg/dL [facility] Potassium [Moles/Vol] 5.0 mmol/L 3.7 - 5.1 mmol/L [facility] Protein [Mass/Vol] 7.1 g/dL 6.3 - 8.0 g/dL [facility] Sodium [Moles/Vol] 139 mmol/L 136 - 144 mmol/L [facility] Urea nitrogen [Mass/Vol] 19 mg/dL 7 - 21 mg/dL [facility] HbA1c (Bld)on 10-17-2021 Average glucose Estimated from glycated hemoglobin (Bld) [Mass/Vol] 140 mg/dL [facility] HbA1c (Bld) [Mass fraction] 6.5 % High 4.3 - 5.6 % [facility] LIPID PANEL, NONFASTINGon Cholesterol [Mass/Vol] 240 mg/dL High <200 mg/dL [facility] HDL Cholesterol, Nonfasting 39 mg/dL Low >39 mg/dL [facility] LDL Cholesterol, Nonfasting 148 mg/dL High <100 mg/dL [facility] LDL/HDL Ratio, Nonfasting 3.79 mg/dL High <2.54 mg/dL [facility] Non HDL Cholesterol, Nonfasting 201 mg/dL High <130 mg/dL [facility] Total Chol/HDL Ratio, Nonfasting 6.15 mg/dL High <5.10 mg/dL [facility] Triglycerides, Nonfasting 266 mg/dL High <150 mg/dL [facility] VLDL Cholesterol, Nonfasting 53 mg/dL High <30 mg/dL [facility] VITAMIN D 25 HYDROXYon 10-17 25-hydroxyvitamin D3 [Mass/Vol] 42.7 ng/mL 31.0 - 80.0 ng/mL [facility] XR ANKLE GENERAL 3V AP/LAT/O BL RIGHTon 10-08-2021 [facility] XR Ankle - right AP and Late ral and obliqueon 10-08-2021 IMPRESSION: 1. Postsurgical and remote posttraumatic changes, as described. 2.Inferior long screw transfixing the syndesmosis is fractured. Showroom Salesperson: JOHNY Transcribe Date/Time: Oct 08 2021 12:38P Dictated by : VETO BENAVIDES MD This examination was interpreted and the report reviewed and electronically signed by: VETO BENAVIDES MD on Oct 08 2021 12:41PM EST [facility]_DO_NOT_ USE_DIVISIO N OF RADIOLOGY * * *Final Report* * [...] tarsal degenerative changes with dorsal hypertrophic spurring. [facility]_DO_NOT_ USE_DIVISIO N OF RADIOLOGY Provider, Joel Hermosillo [facility] - 10/08/2021 * * *Final Report* [...] long screw transfixing the syndesmosis is fractured. Showroom Salesperson: [facility] Transcribe Date/Time: Oct 08 2021 12:38P Dictated by : VETO BENAVIDES MD This examination was interpreted and the report reviewed and electronically signed by: VETO BENAVIDES MD on Oct 08 2021 12:41PM EST [facility] Radiology [facility]narrative) [facility] XR Ankle - right AP and Late ral and obliqueOrdered By: Ccf Provider on 10-08-2021 [facility] Absolute lymphocyte counton 08-29-2021 Lymphocytes Auto (Unsp spec) [#/Vol] 1.10 10*3/uL 0.83-4.51 [facility] Work Phone: Basophil percentageon 2021 Basophils/100 WBC (Bld) 0.3 % 0-[address] [facility] Work Phone: Chloride [Moles/Vol] 105 mmol/L 98-107 [facility] Work Phone: Eosinophils/100 WBC (Bld) 1.5 % 0-5 [facility] Work Phone: Glucose [Mass/Vol] 145 mg/dL 74-106 [facility] Work Phone: Comment on above: Fasting Glucose resu lt greater than or equal to 126 mg/dL suggests DIABETES MELLITUS per A.D.A. criteria. Neutrophils (Bld) [#/Vol] 4.8 10*3/uL 2.0-7.7 [facility] Work Phone: Neutrophils/100 WBC (Bld) 72.7 % 47-70 [facility] Work Phone: Potassium [Moles/Vol] 4.8 mmol/L 3.5-5.1 [facility] Work Phone: Comment on above: Moderate Hemolysis, Result may be falsely increased. Sodium [Moles/Vol] 138 mmol/L 136-145 [facility] Work Phone: WBC (Bld) [#/Vol] 6.6 10*3/uL 4.4-11.0 [facility] Work Phone: Basophil percentage 0 SEEN /hpf [facility] Work Phone: Bilirubin Test strip Ql (U)o n 08-29-2021 Bilirubin Ql (U) Negative Negative [facility] Work Phone: Blood erythrocytes count (nu mber/volume)on 08-29-2021 RBC (Bld) [#/Vol] 4.55 10*6/uL 4.2-5.4 [facility] Work Phone: Blood hemoglobin measurement (mass/volume)on 08-29-2021 Hemoglobin (Bld) [Mass/Vol] 13.9 g/dL 12.0-15.0 [facility] Work Phone: Blood lymphocytes/100 leukoc yteson 08-29-2021 Lymphocytes/100 WBC (Bld) 16.6 % 19-41 [facility] Work Phone: Blood monocytes/100 leukocyt eson 08-29-2021 Monocytes/100 WBC (Bld) 8.6 % 0-[address] [facility] Work Phone: Blood platelet mean volumeon 08-29-2021 Platelet mean volume (Bld) [Entitic vol] 8.5 fL 6.2-12.0 [facility] Work Phone: Determination of erythrocyte mean corpuscular volume (MCV)on 08-29-2021 MCV (RBC) [Entitic vol] 87.5 fL 81-[address] [facility] Work Phone: Hematocrit Auto (Bld) [Volum e fraction]on 08-29-2021 Hematocrit (Bld) [Volume fraction] 39.8 % 37-47 [facility] Work Phone: Ketones Test strip Ql (U)on 08-29-2021 Ketones Ql (U) Negative Negative [facility] Work Phone: Laboratory - Chemistry and C hemistry - challengeon 08-29-2021 CO2 [Moles/Vol] 27.0 mmol/L 21.0-32.0 [facility] Work Phone: Urea nitrogen/Creatinine [Mass ratio] 15.2 mg/mg 10-20 [facility] Work Phone: Laboratory - Hematology and Cell countson 08-29-2021 Erythrocyte distribution width (RBC) [Entitic vol] 40.8 fL 35.1-43.9 [facility] Work Phone: Erythrocyte distribution width (RBC) [Ratio] 12.7 % 11.6-14.6 [facility] Work Phone: Immature granulocytes/100 WBC (Bld) 0.300 % 0.0-0.9 [facility] Work Phone: Comment on above: IG% - Immature Granu locytes (promyelocytes, myelocytes and metamyelocytes) > 1% indicates that a LEFT SHIFT is Present. MCH (RBC) [Entitic mass] 30.5 pg 27.0-32.0 [facility] Work Phone: Nucleated RBC/100 WBC (Bld) [Ratio] 0 % 0-5 [facility] Work Phone: MCHC Auto (RBC) [Mass/Vol]on 08-29-2021 MCHC (RBC) [Mass/Vol] 34.9 g/dL 32-36 [facility] Work Phone: Mucus LM Ql (Urine sed)on Mucus Ql (Urine sed) 0 SEEN /hpf [facility] Work Phone: Nitrite Test strip Ql (U)on 08-29-2021 Nitrite Ql (U) Negative Negative [facility] Work Phone: No Panel Informationon 08-29 Estimated Creatinine Clearance Calc 38.29 ml/min [facility] Work Phone: Estimated GFR (MDRD) Amer 66 mL/min >60 [facility] Work Phone: Comment on above: GFR Calc Estimated GFR (MDRD) Non-Af Amer 54 mL/min >60 [facility] Work Phone: Comment on above: Non- GFR Calc Platelets bldon 08-29-2021 Platelets (Bld) [#/Vol] 324 10*3/uL 150-450 [facility] Work Phone: Protein Test strip Ql (U)on 08-29-2021 Protein Ql (U) Negative Negative [facility] Work Phone: Serum or plasma calcium rodríguez urement (mass/volume)on 08-29-2021 Calcium [Mass/Vol] 9.8 mg/dL 8.5-10.1 [facility] Work Phone: Serum or plasma creatinine m easurement (mass/volume)on 08-29-2021 Creatinine [Mass/Vol] 1.05 mg/dL 0.55-1.02 [facility] Work Phone: Comment on above: The validity of the calculated GFR & GFRAA in patients over 70 years has not been determined. Clinical correlation is essential. Serum or plasma urea nitroge n measurement (mass/volume)on 08-29-2021 Urea nitrogen [Mass/Vol] 16 mg/dL 7-18 [facility] Work Phone: Squamous epithelial cells de tection in urine sediment by light microscopyon 08-29-2021 Epithelial cells.squamous LM Ql (Urine sed) 0 SEEN /hpf [facility] Work Phone: Thin prep Papanicolaou smear with manual screeningon 08-29-2021 Thin prep Papanicolaou smear with manual screening 6 5-15 [facility] Work Phone: Urine blood detectionon 05-0 RBC Ql (U) 250 /ul Negative [facility] Work Phone: RBC Ql (U) 10-25 SEEN /hpf [facility] Work Phone: Urine clarityon 08-29-2021 Clarity (U) Cloudy Clear [facility] Work Phone: Urine color determinationon 08-29-2021 Color (U) Yellow Yellow [facility] Work Phone: Urine glucose detectionon Glucose Ql (U) Normal mg/dl Normal [facility] Work Phone: Urine leukocyte esterase det ection by dipstickon 08-29-2021 Leukocyte esterase Test strip Ql (U) 25 /ul Negative [facility] Work Phone: Urine pHon 08-29-2021 pH (U) 8.0 [pH] [facility] Work Phone: Urine sediment bacteria coun t by microscopy (number/high power field)on 08-29-2021 Bacteria LM.HPF (Urine sed) [#/Area] 1 /[HPF] None Seen [facility] Work Phone: Urine specific gravity measu rementon 08-29-2021 Specific gravity (U) [Rel density] 1.015 [facility] Work Phone: Urobilinogen Auto test strip Ql (U)on 08-29-2021 Urobilinogen Ql (U) Normal mg/dl Normal [facility] Work Phone: XR KNEE 3V AP/LAT/MERCHANT R [...] Moderate narrowing medial compartment IMPRESSION: Stable TKA Showroom Salesperson: JOHNY Transcribe Date/Time: Aug 07 2021 1:41P Dictated by : MAR LOPEZ DO This examination was interpreted and the report reviewed and electronically signed by: MAR LOPEZ DO on Aug 07 2021 1:42PM EST [id number] 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 Nonruptured cerebral aneurysm. TECHNIQUE: Intracranial 3D [id number] MRA and post contrast T1 SPGR images [...] distal basilar at the junction of the music pastor and left SCA. The residual portions of the aneurysm neck give rise to the bilateral P1 segments of the left SCA. Suboptimal evaluation of the left greater than right distal ICAs and the gabe (more content not included)... Normal [facility] CBC and Differentialon 03-14 Abs Baso 0.03 k/uL Normal <0.11 [facility] Comment on above: Performed By: #### C BCDIF, MG1, CMP ####[facility] [address] [place] [address] Abs Edwards 0.68 k/uL Normal <0.87 [facility] Comment on above: Performed By: #### C BCDIF, MG1, CMP ####[facility] Endqpwhhzi[address] [place] [address] Abs Neut 4.92 k/uL Normal 1.45-7.50 [facility] Comment on above: Performed By: #### C BCDIF, MG1, CMP ####[facility] T[address]jlpfvjry47[address] [place] [address] Absolute nRBC <0.01 Normal <0.01 [facility] Comment on above: Performed By: #### C BCDIF, MG1, CMP ####[facility] [address]pmw[address] [place] [address] Basophils/100 WBC (Bld) 0.4 % Normal [facility] Comment on above: Performed By: #### C BCDIF, MG1, CMP ####[facility] [address] [place] [address] DTYPE Auto Diff Normal [facility] Comment on above: Performed By: #### C DEREK MG1, CMP ####[facility] [address] [place] [address] Eosinophils (Bld) [#/Vol] 0.15 10*3/uL Normal <0.46 [facility] Comment on above: Performed By: #### C BCVIKTOR MG1, CMP ####[facility] X[address] [place] [address] Eosinophils/100 WBC (Bld) 2.1 % Normal [facility] Comment on above: Performed By: #### C DEREK MG1, CMP ####[place] [address] Erythrocyte distribution width (RBC) [Ratio] 12.4 % Normal 11.5-15.0 [facility] Comment on above: Performed By: #### C DEREK MG1, CMP ####[facility] [address] [place] [address] Hematocrit (Bld) [Volume fraction] 42.2 % Normal 36.0-46.0 [facility] Comment on above: Performed By: #### C DEREK MG1, CMP ####[place] [address] Hemoglobin (Bld) [Mass/Vol] 13.9 g/dL Normal 11.5-15.5 [facility] Comment on above: Performed By: #### C BCVIKTOR MG1, CMP ####[facility] Ek[address] [place] [address] Lymphocytes (Bld) [#/Vol] 1.41 10*3/uL Normal 1.00-4.00 [facility] Comment on above: Performed By: #### C BCVIKTOR MG1, CMP ####[address] Lymphocytes/100 WBC (Bld) 19.6 % Normal [facility] Comment on above: Performed By: #### C BCVIKTOR MG1, CMP ####[facility] [address] [place] [address] MCH 31.2 pG Normal 26.0-34.0 [facility] Comment on above: Performed By: #### MG RICHIE1, CMP ####[facility] [address] [place] [address] MCHC (RBC) [Mass/Vol] 32.9 g/dL Normal 30.5-36.0 [facility] Comment on above: Performed By: #### C DEREK MG1, CMP ####[facility] [address] [place] [address] MCV (RBC) [Entitic vol] 94.6 fL Normal 80.0-100.0 [facility] Comment on above: Performed By: #### C DEREK MG1, CMP ####[place] [address] Monocytes/100 WBC (Bld) 9.4 % Normal [facility] Comment on above: Performed By: #### C DEREK MG1, CMP ####[facility] [address] [place] [address] Neutrophils/100 WBC (Bld) 68.5 % Normal [facility] Comment on above: Performed By: #### C DEREK MG1, CMP ####[place] [address] NRBCs 0.0 /100 WBC Normal 0 [facility] Comment on above: Performed By: #### Shruti REED MG1, CMP ####[place] [address] Platelet mean volume (Bld) [Entitic vol] 8.6 fL Low 9.0-12.7 [facility] Comment on above: Performed By: #### C DEREK MG1, CMP ####[place] [address] Platelets (Bld) [#/Vol] 349 10*3/uL Normal 150-400 [facility] Comment on above: Performed By: #### Shruti REED MG1, CMP ####[facility] [address] [place] [address] RBC (Bld) [#/Vol] 4.46 10*6/uL Normal 3.90-5.20 [facility] Comment on above: Performed By: #### C STEFANIA REED, CMP ####[facility] [address]16[address] [place] [phone] WBC (Bld) [#/Vol] 7.21 10*3/uL Normal 3.70-11.00 [facility] Comment on above: Performed By: #### C STEFANIA REED, CMP ####[facility] [address] [place] [phone] CT ABD/PEL WO IVCONon 2020 CT ABD/PEL WO IVCON * * *Final Report* * * DATE OF EXAM: Mar 14 2021 4:19PM [facility] [place] [facility] [place] ABD/PEL WO IVCON / [...] the right lower lobe suggestive of atelectasis. Oil Well Shooter (topogram) images: IMPRESSION: 1. No acute intra-abdominal/pelvic abnormalities are identified. 2. Diverticulosis. Showroom Salesperson: JOHNY Transcribe Date/Time: Mar 14 2021 4:21P Dictated by : NORRIS HERNÁNDEZ MD This examination was interpreted and the report reviewed and electronically signed by: NORRIS HERNÁNDEZ MD on Mar 14 2021 4:33PM EST [id number] Normal [facility] CT CHEST W IVCON PEon 2020 CT CHEST W IVCON PE * * *Final Report* * * DATE OF EXAM: Mar 14 2021 3:01PM [facility] [place] CT CHEST W IVCON PE [...] No abnormality in the imaged upper abdomen. Oil Well Shooter (topogram) images: No additional findings. IMPRESSION: No CT evidence of pulmonary embolism. No acute chest pathology. Showroom Salesperson: JOHNY Transcribe Date/Time: Mar 14 2021 3:23P Dictated by : CANDE WEAVER MD This examination was interpreted and the report reviewed and electronically signed by: CANDE WEAVER MD on Mar 14 2021 3:30PM EST [id number] Normal [facility] Cepheid Bill only (EXCFR)on 03-14-2021 Cepheid Bill only (EXCFR) Billed for services performed Normal [facility] Comment on above: Performed By: #### C FRCEP, EXCFR ####[facility] [address] [place] [address] Comp Metabolic Panelon 03-14 Albumin [Mass/Vol] 4.4 g/dL Normal 3.9-4.9 [facility] Comment on above: Performed By: #### C BCDIF, MG1, CMP ####[place] [address] ALP [Catalytic activity/Vol] 52 U/L Normal 34-123 [facility] Comment on above: Performed By: #### C BCDIF, MG1, CMP ####[facility] J[address] [place] [address] ALT [Catalytic activity/Vol] 27 U/L Normal 7-38 [facility] Comment on above: Performed By: #### C BCDIF, MG1, CMP ####[facility] [address] [place] [address] Anion gap [Moles/Vol] 15 mmol/L Normal 9-18 [facility] Comment on above: Performed By: #### C BCDIF, MG1, CMP ####[facility] Din[address] [place] [address] AST [Catalytic activity/Vol] 27 U/L Normal 13-35 [facility] Comment on above: Performed By: #### Shruti REED MG1, CMP ####[facility] [address]zrm[address] [place] [address] Bilirubin [Mass/Vol] 0.4 mg/dL Normal 0.2-1.3 [facility] Comment on above: Performed By: #### Shruti REED MG1, CMP ####[facility] Nlifypqddx9[address] [place] [address] Calcium [Mass/Vol] 10.0 mg/dL Normal 8.5-10.2 [facility] Comment on above: Performed By: #### Shruti REED MG1, CMP ####[facility] [address] [place] [address] Chloride [Moles/Vol] 100 mmol/L Normal 97-105 [facility] Comment on above: Performed By: #### Shruti REED MG1, CMP ####[facility] [address] [place] [address] CO2 [Moles/Vol] 23 mmol/L Normal 22-30 [facility] Comment on above: Performed By: #### Shruti REED MG1, CMP ####[facility] [address] [place] [address] Creatinine [Mass/Vol] 0.73 mg/dL Normal 0.58-0.96 [facility] Comment on above: Performed By: #### Shruti REED MG1, CMP ####[facility] R[address]ms46[address] [place] [address] eGFR- Amer. >60 Normal [facility] Comment on above: Performed By: #### Shruti REED MG1, CMP ####[facility] Zqgexfyahy0474 [place] [address] eGFR-All Other Races >60 Normal [facility] Comment on above: Result Comment: eGFR (Estimated [...] reflect actual GFR. Performed By: #### C BCDIF, MG1, CMP ####[facility] [address] [place] [address] Glucose [Mass/Vol] 128 mg/dL High 74-99 [facility] Comment on above: Result Comment: The [place] Diabetes Association (ADA) provides guidance for cutoff [...] Standards of Medical Care in Diabetes 2016, [place] [employer] Association. Diabetes Care. 2016.39(Suppl 1). Performed By: #### C BCDIF, MG1, CMP ####[facility] [address] [place] [address] Potassium [Moles/Vol] 4.3 mmol/L Normal 3.7-5.1 [facility] Comment on above: Performed By: #### C BCDIF, MG1, CMP ####[facility] Pyindxdhvp6343 [place] [address] Protein [Mass/Vol] 7.0 g/dL Normal 6.3-8.0 [facility] Comment on above: Performed By: #### C BCDIF, MG1, CMP ####[facility] [address] [place], [place] [address] Sodium [Moles/Vol] 138 mmol/L Normal 136-144 [facility] Comment on above: Performed By: #### C BCDIF, MG1, CMP ####[facility] [address]uy[address] [place] [address] Urea nitrogen [Mass/Vol] 18 mg/dL Normal 7-21 [facility] Comment on above: Performed By: #### C BCDIF, MG1, CMP ####[facility] [address]ro[address]hw2735 [place] [phone] ED NOTEon 03-14-2021 ED NOTE HNO ID: [id number] Author: Luis M Ward, LAURITA Service: ? Author Type: Registered Nurse Type: ED Notes Filed: 03/14/2021 5:12 PM Note Text: Pt given discharge instructions, pt verbalized understanding and importance of follow up care, pt ambulatory at bedside, pt discharged without incident. Normal [facility] ED NOTE HNO ID: [id number] Author: Corinne Conway, LAURITA Service: ? Author Type: Registered Nurse Type: ED Notes Filed: 03/14/2021 12:48 PM Note Text: Pt to ED with SOB for the last 6 days and elevated HR. Went to [facility] and sent to ED for evaluation. Denies pain. [facility] ED PROV NOTEon 03-14-2021 ED PROV NOTE HNO ID: [id number] Author: Ilia Montgomery MD Service: ? Author [...] as of 03/14/21 1652 Ilia Montgomery's Documentation FriMar 14, 2021 1515 ECG sinus tachycardia @ [...] PM Ilia Montgomery MD 03/14/21 2233 Normal [facility] ED PROV NOTE HNO ID: [id number] Author: Vielka Saenz DO Service: Emergency Medicine [...] of breath. She has not taken any gmff-wip-dubyabj medications for symptoms. 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 Physical (more content not included)... Normal [facility] EXCOVD, Flu A/B, RSV (On int erfaces 1102,1120)on 03-14-2021 Influenza A PCR Negative [facility] Comment on above: Performed By: #### C FRCEP, EXCFR ####[facility] [address] [place] [address] Influenza B PCR Negative [facility] Comment on above: Performed By: #### C FRCEP, EXCFR ####[facility] [address] [place] [address] RSV PCR Negative [facility] Comment on above: Result Comment: This test has been authorized by FDA under an Emergency Use Authorization (EUA). Performed By: #### C FRCEP, EXCFR ####[facility] [address] [place] [address] SARS-CoV-2 (COVID-19) RNA DUSTIN+probe Ql (Unsp spec) UPPER RESPIRATORY TRACT SWAB Normal [facility] Comment on above: Performed By: #### C FRCEP, EXCFR ####[facility] [address] [place] [address] SARS-CoV-2 (COVID-19) RNA DUSTIN+probe Ql (Unsp spec) Negative for COVID19 (SARS CoV2) by RT-PCR or equivalent method. Normal Negative for COVID19 (SARS CoV2) by RT-PCR or equivalent method. [facility] Comment on above: Result Comment: This test has been authorized by FDA under an Emergency Use Authorization (EUA). Performed By: #### C FRCEP, EXCFR ####[facility] [address] [place] [address] Lipaseon 03-14-2021 Lipase [Catalytic activity/Vol] 54 U/L Normal 16-61 [facility] Comment on above: Performed By: #### L IPA ####[facility] [address] [place] [address] Magnesiumon 03-14-2021 Magnesium [Mass/Vol] 2.1 mg/dL Normal 1.7-2.3 [facility] Comment on above: Performed By: #### C BCDIF, MG1, CMP ####[place] [address] NT Pro BNPon 03-14-2021 PRO B Natr Peptide <50 Normal <450 [facility] Comment on above: Performed By: #### N TBNP ####[facility] [address] [place] [address] Troponin Ton 03-14-2021 Troponin T <0.010 Normal 0.000-0.029 [facility] Comment on above: Performed By: #### T NT ####[place] [address] Urinalysison 03-14-2021 Bilirubin, Urine Negative Normal Negative [facility] Comment on above: Performed By: #### U A ####[place] [address] Clarity (U) Clear Normal Clear [facility] Comment on above: Performed By: #### U A ####[place] [address] Color (U) Yellow Normal Yellow [facility] Comment on above: Performed By: #### U A ####[place] [address] Comments SEE COMMENT Normal [facility] Comment on above: Result Comment: Best practice alert: to ensure optimal and accurate results, transfer urine specimens to an appropriate urine preservative tube. Performed By: #### U A ####[place] [phone] Glucose Ql (U) Negative Normal Negative [facility] Comment on above: Performed By: #### U A ####[facility] [address] [place] [address] Hemoglobin/Blood,Ur Negative Normal Negative [facility] Comment on above: Performed By: #### U A ####[facility] [address] [place] [address] Ketones Ql (U) Negative Normal Negative [facility] Comment on above: Performed By: #### U A ####[facility] [address] [place] [address] Leukest Negative Normal Negative [facility] Comment on above: Performed By: #### U A ####[facility] [address] [place] [address] Nitrite Ql (U) Negative Normal Negative [facility] Comment on above: Performed By: #### U A ####[place] [address] pH (U) 6.0 [pH] Normal 5.0-8.0 [facility] Comment on above: Performed By: #### U A ####[facility] [address] [place] [address] Protein, Urine Negative Normal Negative [facility] Comment on above: Performed By: #### U A ####[place] [address] Specific [place], Ur <=1.005 Normal 1.005-1.030 [facility] Comment on above: Performed By: #### U A ####[facility] [address] [place] [address] Urobilinogen Qn (U) 0.2 {Cuco'U}/dL Normal 0.2-1.0 [facility] Comment on above: Performed By: #### U A ####[facility] [address] [place] [address] APTTon 01-08-2021 aPTT Coag (Bld) [Time] 23.6 s Normal 23.0-32.4 [facility] Comment on above: Result Comment: Unfr actionated [...] laboratory APTT reagent in use throughout the [facility]. Performed By: #### C BC, PT, PTT, BMP ####[facility] [address]ks[address] [place] [phone] ASP/NATIVIDAD Resist Panelon 01-08 ADP Max Aggreg 17 % Max Low 65-93 [facility] Comment on above: Performed By: #### A SPCLP ####[facility] [place], [place] [phone] Arach Max Aggreg 11 % Max Low 75-100 [facility] Comment on above: Performed By: #### A SPCLP ####[facility] [place], [place] [phone] Interpretation (NOTE) Normal [facility] Comment on above: Result Comment: Perf orming [...] percent. These parameters were developed at the [facility] utilizing the assay and reagents performed on this patient's platelets. Ana M VELA. Trace Alberts. Manda VELA. Viviana UMAÑA. A prospective, blinded determination of the natural history of aspirin resistance among stable patients with cardiovascular disease. Journal of the [place] [employer]. 41(6):961-5, 2003. There is [...] medication history. Performed By: #### A SPCLP ####[facility] [address] [place], [place] [phone] Basic Metabolic Panlon 01-08 Anion gap [Moles/Vol] 9 mmol/L Normal 9-18 [facility] Comment on above: Performed By: #### C BC, PT, PTT, BMP ####[facility] [address] [place] [address] Calcium [Mass/Vol] 9.4 mg/dL Normal 8.5-10.2 [facility] Comment on above: Performed By: #### C BC, PT, PTT, BMP ####[facility] N[address]wrsnmme[address] [place] [address] Chloride [Moles/Vol] 100 mmol/L Normal 97-105 [facility] Comment on above: Performed By: #### C BC, PT, PTT, BMP ####[facility] Ucpjnhsfzy5559 [place] [address] CO2 [Moles/Vol] 28 mmol/L Normal 22-30 [facility] Comment on above: Performed By: #### C BC, PT, PTT, BMP ####[facility] Ffeyluwgtg7[address] [place] [address] Creatinine [Mass/Vol] 0.77 mg/dL Normal 0.58-0.96 [facility] Comment on above: Performed By: #### C BC, PT, PTT, BMP ####[facility] Tmpewdyyqp4931 [place] [address] eGFR- Amer. >60 Normal [facility] Comment on above: Performed By: #### C BC, PT, PTT, BMP ####[facility] Fiopyqivfo8392 [place] [address] eGFR-All Other Races >60 Normal [facility] Comment on above: Result Comment: eGFR (Estimated [...] By: #### C BC, PT, PTT, BMP ####[facility] J[address]zc[address]udu35[address] [place] [address] Glucose [Mass/Vol] 134 mg/dL High 74-99 [facility] Comment on above: Result Comment: The [place] Diabetes Association (ADA) provides guidance for cutoff [...] Standards of Medical Care in Diabetes 2016, [place] [employer]. Diabetes Care. 2016.39(Suppl 1). Performed By: #### C BC, PT, PTT, BMP ####[facility] [address] [place], [place] [phone] Potassium [Moles/Vol] 4.9 mmol/L Normal 3.7-5.1 [facility] Comment on above: Performed By: #### C BC, PT, PTT, BMP ####[facility] Lf[address]uiizff6[address] [place] [phone] Sodium [Moles/Vol] 137 mmol/L Normal 136-144 [facility] Comment on above: Performed By: #### C BC, PT, PTT, BMP ####[facility] Nwxkykybpf1361 [place] [phone] Urea nitrogen [Mass/Vol] 21 mg/dL Normal 7-21 [facility] Comment on above: Performed By: #### C BC, PT, PTT, BMP ####[facility] Rihouywikv7285 [address] CBCon 01-08-2021 Absolute nRBC <0.01 Normal <0.01 [facility] Comment on above: Performed By: #### C BC, PT, PTT, BMP ####[facility] Zvxsmxibcc8920 [address] Erythrocyte distribution width (RBC) [Ratio] 13.2 % Normal 11.5-15.0 [facility] Comment on above: Performed By: #### C BC, PT, PTT, BMP ####[facility] X[address]its[address]ame[address] [place] [address] Hematocrit (Bld) [Volume fraction] 40.0 % Normal 36.0-46.0 [facility] Comment on above: Performed By: #### C BC, PT, PTT, BMP ####[facility] Muvvopkglc0884 [place] [address] Hemoglobin (Bld) [Mass/Vol] 12.8 g/dL Normal 11.5-15.5 [facility] Comment on above: Performed By: #### C BC, PT, PTT, BMP ####[facility] Cinntgmhog4523 [place] [address] MCH 30.5 pG Normal 26.0-34.0 [facility] Comment on above: Performed By: #### C BC, PT, PTT, BMP ####[facility] [address]kl[address]mfaz4367 [place] [phone] MCHC (RBC) [Mass/Vol] 32.0 g/dL Normal 30.5-36.0 [facility] Comment on above: Performed By: #### C BC, PT, PTT, BMP ####[facility] Fjnwlcrvkf8533 [place] [phone] MCV (RBC) [Entitic vol] 95.5 fL Normal 80.0-100.0 [facility] Comment on above: Performed By: #### C BC, PT, PTT, BMP ####[facility] Uhrzraqmmi7595 [place] [phone] Platelet mean volume (Bld) [Entitic vol] 8.4 fL Low 9.0-12.7 [facility] Comment on above: Performed By: #### C BC, PT, PTT, BMP ####[facility] Satgtconzc9800 [phone] Platelets (Bld) [#/Vol] 297 10*3/uL Normal 150-400 [facility] Comment on above: Performed By: #### C BC, PT, PTT, BMP ####[facility] Xlaaazrywr5878 [address] RBC (Bld) [#/Vol] 4.19 10*6/uL Normal 3.90-5.20 [facility] Comment on above: Performed By: #### C BC, PT, PTT, BMP ####[facility] Eqdrevpaoj8149 [address] WBC (Bld) [#/Vol] 5.23 10*3/uL Normal 3.70-11.00 [facility] Comment on above: Performed By: #### C BC, PT, PTT, BMP ####[facility] Kwzimdalsv1642 [address] HISTORY PHYSICALon HISTORY PHYSICAL HNO ID: [id number] Author: Gladis Bates APRN.PHYSICIAN ANESTHESIOLOGIST Service: ? Author Type: Nurse Practitioner Type: [...] fibrillation, CAD, chest pain, CHF, DVT/PE, recent SD and murmur/valvular heart disease. GI: Positive for: GERD (Occasional heartburn, Prilosec PRN) Negative for: abdominal pain, difficulty swallowing, diverticulitis, GI bleed <30 days, hepatitis, irritable bowel syndrome, inflammatory bowel disease, liver disease, nausea and vomiting. : Positive for: nocturia >1 time per night. Negative for: dysuria, frequent urination, hematuria, nephrolithiasis, renal failure, urgency and urinary tract infection. OPHTHALMOLOGY TECHNICIAN: Negative for abnormal vaginal bleeding, abnormal vaginal [...] BY UZAIR (more content not included)... Normal [facility] Protimeon 01-08-2021 PT INR 1.0 Normal 0.9-1.3 [facility] Comment on above: Result Comment: Analilia min K Antagonist (VKA) Therapeutic Range: INR 2 to 3 (Target INR of 2.5) Note: For patients treated with VKA drugs, such as warfarin, the [place] [employer] 2012 Guideline recommends [...] Chest 2012, [id number] Hawk RA, et al. [facility] 2017, 70: [id number] Performed By: #### C BC, PT, PTT, BMP ####[facility] [id number] [place], [place] [phone] PT Sec 10.2 sec Normal 9.7-13.0 [facility] Comment on above: Performed By: #### C BC, PT, PTT, BMP ####[facility] [id number] [place], [place] [phone] XR Chest PA and Lateralon IMPRESSION: No acute radiographic abnormality. Showroom Salesperson: JOHNY Transcribe Date/Time: Dec 25 2020 1:18P Dictated by : ANTHONY NYE MD This examination was interpreted and the report reviewed and electronically signed by: ANTHONY NYE MD on Dec 25 2020 1:19PM [facility] DIVISION OF RADIOLOGY * * *Final Report* [...] soft tissues: Unremarkable. DIVISION OF RADIOLOGY Provider, [facility] - 12/25/2020 * * *Final Report* * [...] Unremarkable. IMPRESSION IMPRESSION: No acute radiographic abnormality. Showroom Salesperson: JOHNY Transcribe Date/Time: Dec 25 2020 1:18P Dictated by : ANTHONY NYE MD This examination was interpreted and the report reviewed and electronically signed by: ANTHONY NYE MD on Dec 25 2020 1:19PM [facility] Radiology Study observation (narrative) Aline bess [facility] XR Chest PA and LateralOrder ed By: Ccf Provider on 12-25-2020 [facility] Tahir 12-14-2020 [facility] JUDI KRAUSE ([id number]) 1945 F NFR Date Time Provider Department 12/14/20 DIANNE CHERRY VICKI During your visit today, we recorded the [...] RN - Fully Assessed Reason for Visit: Group Tester - Other [[id number]] Prescriptions as of 12/14/2020 - biotin 1 [...] Encounter Status:Closed by APURVA HEREDIA on 12/14/20 [facility] BRIEF OP NOTon 12-06-2020 BRIEF OP NOT HNO ID: [id number] Author: Dianne Cherry MD Service: Neurosurgery Author Type: Physician Type: Brief Op Note Filed: 12/06/2020 12:54 PM Note Text: BRIEF OP/PROCEDURE NOTE NEURO INTERVENTIONAL PROCEDURE DATE: December 06, 2020 LOG ID: [id number] Surgery/Procedure Date: 12/06/2020 Incision/Procedure Start Time: 11:20 AM Incision Close/Procedure End Time: 12:22 PM Anesthesia: Procedural Sedation PRIMARY PROCEDURALIST: Dianne Cherry M.D. LOZENGE MAKER HELPER(S): Anant Horton MD PROCEDURE: Diagnostic CervicoCerebral Angiography [...] DATE: December 06, 2020 TIME: 12:35 PM [id number] Normal [facility] NIL CAROTID CEREBRAL UNILATE [facility] 12-06-2020 NIL CAROTID CEREBRAL UNILATERAL * [...] END TIME: 12:22P{M ATTENDING: Dianne Cherry MD, LOZENGE MAKER HELPER (FELLOW): Anant Horton MD The procedure was performed by the the care team assistant, and the attending personally supervised the entire procedure. The attending performed the following procedural activities: Diagnostic cerebral angiogram. ANGIOGRAPHY MATERIALS: Diagnostic catheter: 5 Marshallese Vert Catheter Guidewire: 0.035 inch angled tapered [...] right common femoral artery utilizing a 4 Marshallese micropuncture set. A 5 Marshallese sheath was inserted and connected to heparinized [...] (more content not included)... Normal [facility] NIL INTERNAL/CEREBRAL UNIon 12-06-2020 NIL INTERNAL/CEREBRAL [...] END TIME: 12:22P{M ATTENDING: Dianne Cherry MD, LOZENGE MAKER HELPER (FELLOW): Anant Horton MD The procedure was performed by the the care team assistant, and the attending personally supervised the entire procedure. The attending performed the following procedural activities: Diagnostic cerebral angiogram. ANGIOGRAPHY MATERIALS: Diagnostic catheter: 5 Marshallese Vert Catheter Guidewire: 0.035 inch angled tapered [...] right common femoral artery utilizing a 4 Marshallese micropuncture set. A 5 Marshallese sheath was inserted and connected to heparinized [...] (more content not included)... Normal [facility] NIL THOMPSON UNI EXT CAROTID H/No n [...] END TIME: 12:22P{M ATTENDING: Dianne Cherry MD, LOZENGE MAKER HELPER (FELLOW): Anant Horton MD The procedure was performed by the the care team assistant, and the attending personally supervised the entire procedure. The attending performed the following procedural activities: Diagnostic cerebral angiogram. ANGIOGRAPHY MATERIALS: Diagnostic catheter: 5 Marshallese Vert Catheter Guidewire: 0.035 inch angled tapered [...] right common femoral artery utilizing a 4 Marshallese micropuncture set. A 5 Marshallese sheath was inserted and connected to heparinized [...] (more content not included)... Normal [facility] NIL UNI VERT-SC/INOM INJECTo n 12-06-2020 [...] END TIME: 12:22P{M ATTENDING: Dianne Cherry MD, LOZENGE MAKER HELPER (FELLOW): Anant Horton MD The procedure was performed by the the care team assistant, and the attending personally supervised the entire procedure. The attending performed the following procedural activities: Diagnostic cerebral angiogram. ANGIOGRAPHY MATERIALS: Diagnostic catheter: 5 Marshallese Vert Catheter Guidewire: 0.035 inch angled tapered [...] right common femoral artery utilizing a 4 Marshallese micropuncture set. A 5 Marshallese sheath was inserted and connected to heparinized [...] (more content not included)... Normal [facility] NIL VERT UNIon 12-06-2020 NIL VERT [...] END TIME: 12:22P{M ATTENDING: Dianne Cherry MD, LOZENGE MAKER HELPER (FELLOW): Anant Horton MD The procedure was performed by the the care team assistant, and the attending personally supervised the entire procedure. The attending performed the following procedural activities: Diagnostic cerebral angiogram. ANGIOGRAPHY MATERIALS: Diagnostic catheter: 5 Marshallese Vert Catheter Guidewire: 0.035 inch angled tapered [...] right common femoral artery utilizing a 4 Marshallese micropuncture set. A 5 Marshallese sheath was inserted and connected to heparinized [...] (more content not included)... Normal [facility] XR KNEE 3V AP/LAT/MERCHANT R Ton [...] New RIGHT total knee arthroplasty without complication. Showroom Salesperson: JOHNY Transcribe Date/Time: Sep 05 2020 12:12P Dictated by : OSBALDO ARANA DO This examination was interpreted and the report reviewed and electronically signed by: OSBALDO ARANA DO on Sep 05 2020 12:14PM EST [id number] 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 TECHNIQUE: Intracranial 3D [id number] MRA. 3D maximum intensity projection images were [...] is suspected within the visualized intracranial vasculature. Showroom Salesperson: [facility] Transcribe Date/Time: Aug 02 2020 8:44A Dictated by : ADAM ROSE MD This examination was interpreted and the report reviewed and electronically signed by: ADAM ROSE MD on Aug 02 2020 9:02AM EST [id number] Normal [facility] XR Ankle - left AP and Later al and obliqueon 05-06-2020 IMPRESSION: Soft tissue swelling. No evidence of acute fracture. Showroom Salesperson: [facility] Transcribe Date/Time: May 06 2020 11:28A Dictated by : REINA COLLIER MD This examination was interpreted and the report reviewed and electronically signed by: REINA COLLIER MD on May 06 2020 11:29AM EST DIVISION OF RADIOLOGY * * *Final Report* [...] healed fracture. - DIVISION OF RADIOLOGY Provider, [facility] - 05/06/2020 * * *Final Report* [...] tissue swelling. No evidence of acute fracture. Showroom Salesperson: JOHNY Transcribe Date/Time: May 06 2020 11:28A Dictated by : REINA COLLIER MD This examination was interpreted and the report reviewed and electronically signed by: REINA COLLIER MD on May 06 2020 11:29AM EST [facility] Radiology Study observation (narrative) [facility] XR Ankle - left AP and Later al and obliqueOrdered By: Ccf Provider on 05-06-2020 [facility] Vital Signs Date Time Vital Sign Value Performing Clinician Facility 10-19-2024 20:17-0400 Body temperature 98.2 [degF] Dr. Ruddy Cooper MD Work Phone: [facility] 10-19-2024 20:17-0400 Diastolic blood pressure 92 mm[Hg] Dr. Ruddy Cooper MD Work Phone: [facility] 10-19-2024 20:17-0400 Heart rate 77 /min Dr. Ruddy Cooper MD Work Phone: [facility] 10-19-2024 20:17-0400 Respiratory rate 25 /min Dr. Ruddy Cooper MD Work Phone: [facility] 10-19-2024 20:17-0400 SaO2% (BldA) [Mass fraction] 100 % Dr. Ruddy Cooper MD Work Phone: 0(271)969-288076 [place] [address] 10-19-2024 20:17-0400 Systolic blood pressure 104 mm[Hg] Dr. Ruddy Cooper MD Work Phone: 5(973)135-454876 [place] [address] 10-19-2024 12:20-0400 Body height 160.[address] Ruddy Cooper MD Work Phone: 3(555)024-697676 [place] [address] 10-19-2024 12:20-0400 Body mass index (BMI) [Ratio] 25.7 kg/m2 Dr. Ruddy Cooper MD Work Phone: 5(071)944-892676 [place] [address] 10-19-2024 12:20-0400 Body weight 65.[address] Ruddy Cooper MD Work Phone: 7(413)516-443176 [place] [address] 10-12-2024 13:57-0400 Body temperature 97.9 [degF] Dr. Ruddy Cooper MD Work Phone: 4(326)998-425976 [place] [address] 10-12-2024 13:57-0400 Diastolic blood pressure 68 mm[Hg] Dr. Ruddy Cooper MD Work Phone: 0(480)608-944076 [place] [address] 10-12-2024 13:57-0400 Heart rate 82 /min Dr. Ruddy Cooper MD Work Phone: 9(016)098-737176 [place] [address] 10-12-2024 13:57-0400 Respiratory rate 16 /min Dr. Ruddy Cooper MD Work Phone: 8(704)244-829176 [place] [address] 10-12-2024 13:57-0400 SaO2% (BldA) [Mass fraction] 99 % Dr. Ruddy Cooper MD Work Phone: 7(981)105-174776 [place] [address] 10-12-2024 13:57-0400 Systolic blood pressure 142 mm[Hg] Dr. Ruddy Cooper MD Work Phone: 1(371)641-414976 [place] [address] 10-10-2024 18:57-0400 Body height 160.[address] Ruddy Cooper MD Work Phone: 0(787)963-405576 [place] [address] 10-10-2024 18:57-0400 Body mass index (BMI) [Ratio] 25.6 kg/m2 Dr. Ruddy Cooper MD Work Phone: 6(673)325-480376 [place] [address] 10-10-2024 18:57-0400 Body weight 65.[address] Ruddy Cooper MD Work Phone: 0(399)078-438076 [place] [address] 10-10-2024 17:00-0400 Body temperature 98.6 [degF] Dr. Ruddy Cooper MD Work Phone: 5(394)964-954676 [place] [address] 10-10-2024 17:00-0400 Diastolic blood pressure 71 mm[Hg] Dr. Ruddy Cooper MD Work Phone: 9(176)226-148676 [place] [address] 10-10-2024 17:00-0400 Heart rate 87 /min Dr. Ruddy Cooper MD Work Phone: 8(215)959-317776 [place] [address] 10-10-2024 17:00-0400 Respiratory rate 19 /min Dr. Ruddy Cooper MD Work Phone: 9(414)968-804476 [place] [address] 10-10-2024 17:00-0400 SaO2% (BldA) [Mass fraction] 96 % Dr. Ruddy Cooper MD Work Phone: 6(511)926-951176 [place] [address] 10-10-2024 17:00-0400 Systolic blood pressure 122 mm[Hg] Dr. Ruddy Cooper MD Work Phone: 8(869)047-657176 [place] [address] 10-10-2024 14:03-0400 Body height 160.[address] Ruddy Cooper MD Work Phone: 9(905)331-387676 [place] [address] 10-10-2024 14:03-0400 Body mass index (BMI) [Ratio] 26.9 kg/m2 Dr. Ruddy Cooper MD Work Phone: 1(679)559-560976 [place] [address] 10-10-2024 14:03-0400 Body weight 69.[address] Ruddy Cooper MD Work Phone: 3(237)536-115076 [place] [address] 09-09-2024 00:58-0400 Body temperature 98 [degF] Dr. Ruddy Cooper MD Work Phone: 3(248)874-956756 [place] [address] 09-09-2024 00:58-0400 Diastolic blood pressure 70 mm[Hg] Dr. Ruddy Cooper MD Work Phone: 9(579)226-318476 [place] [address] 09-09-2024 00:58-0400 Heart rate 78 /min Dr. Ruddy Cooper MD Work Phone: 9(102)550-889276 [place] [address] 09-09-2024 00:58-0400 Respiratory rate 20 /min Dr. Ruddy Cooper MD Work Phone: 3(851)410-943676 [place] [address] 09-09-2024 00:58-0400 SaO2% (BldA) [Mass fraction] 99 % Dr. Ruddy Cooper MD Work Phone: 0(188)781-286976 [place] [address] 09-09-2024 00:58-0400 Systolic blood pressure 117 mm[Hg] Dr. Ruddy Cooper MD Work Phone: 6(980)989-767476 [place] [address] 09-08-2024 22:11-0400 Body height 160.[address] Ruddy Cooper MD Work Phone: 3(540)091-519776 [place] [address] 09-08-2024 22:11-0400 Body mass index (BMI) [Ratio] 26.4 kg/m2 Dr. Ruddy Cooper MD Work Phone: 2(087)936-573576 [place] [address] 09-08-2024 22:11-0400 Body weight 67.[address] Ruddy Cooper MD Work Phone: 6(653)852-805376 [place] [address] 09-07-2024 13:42-0400 Diastolic blood pressure 65 mm[Hg] Bradford Olve RECRUITING ASSISTANT.EXPLORATION DRILLER Work Phone: 9(043)775-286002 [place] [address] 09-07-2024 13:42-0400 Heart rate 91 /min Bradford Love RECRUITING ASSISTANT.EXPLORATION DRILLER Work Phone: 8(737)576-564455 [place] [address] 09-07-2024 13:42-0400 Systolic blood pressure 99 mm[Hg] Bradford Love RECRUITING ASSISTANT.EXPLORATION DRILLER Work Phone: 5(877)001-285755 [place] [address] 09-07-2024 13:39-0400 Body mass index (BMI) [Ratio] 26.13 kg/m2 [facility] RECRUITING ASSISTANT.EXPLORATION DRILLER Work Phone: [facility] 09-07-2024 13:39-0400 Body weight 66.[address] [facility] RECRUITING ASSISTANT.EXPLORATION DRILLER Work Phone: [facility] 09-07-2024 13:39-0400 Respiratory rate 16 /min [facility] RECRUITING ASSISTANT.EXPLORATION DRILLER Work Phone: [facility] 08-30-2024 09:30-0400 Body temperature 97.9 [degF] Dr. Ruddy Cooper MD Work Phone: [facility] 08-30-2024 09:30-0400 Diastolic blood pressure 82 mm[Hg] Dr. Ruddy Cooper MD Work Phone: [facility] 08-30-2024 09:30-0400 Heart rate 95 /min Dr. Ruddy Cooper MD Work Phone: [facility] 08-30-2024 09:30-0400 Respiratory rate 17 /min Dr. Ruddy Cooper MD Work Phone: [facility] 08-30-2024 09:30-0400 SaO2% (BldA) [Mass fraction] 97 % Dr. Ruddy Cooper MD Work Phone: [facility] 08-30-2024 09:30-0400 Systolic blood pressure 134 mm[Hg] Dr. Ruddy Cooper MD Work Phone: [facility] 08-30-2024 06:00-0400 Body mass index (BMI) [Ratio] 26.4 kg/m2 Dr. Ruddy Cooper MD Work Phone: [facility] 08-30-2024 06:00-0400 Body weight 67.[address] Ruddy Cooper MD Work Phone: [facility] 08-16-2024 12:31-0400 Body mass index (BMI) [Ratio] 26.75 kg/m2 Khris Salinas MD Work Phone: [facility] 08-16-2024 12:31-0400 Body weight 68.49 kg Khris Salinas MD Work Phone: [facility] 08-16-2024 12:31-0400 Diastolic blood pressure 72 mm[Hg] Khris Salinas MD Work Phone: [facility] 08-16-2024 12:31-0400 Heart rate 97 /min Khris Salinas MD Work Phone: [facility] 08-16-2024 12:31-0400 Systolic blood pressure 113 mm[Hg] Khris Salinas MD Work Phone: [facility] 08-09-2024 13:00-0400 Body mass index (BMI) [Ratio] 26.87 kg/m2 Zafar Clutter PA-C Work Phone: [facility] 08-09-2024 13:00-0400 Body temperature 98.49 [degF] Zafar Clutter PA-C Work Phone: [facility] 08-09-2024 13:00-0400 Body weight 68.8 kg Zafar Clutter PA-C Work Phone: [facility] 08-09-2024 13:00-0400 Diastolic blood pressure 80 mm[Hg] Zafar Clutter PA-C Work Phone: [facility] 08-09-2024 13:00-0400 Heart rate 72 /min Zafar Clutter PA-C Work Phone: [facility] 08-09-2024 13:00-0400 Respiratory rate 18 /min Azfar Clutter PA-C Work Phone: [facility] 08-09-2024 13:00-0400 Systolic blood pressure 126 mm[Hg] Zafar Clutter PA-C Work Phone: [facility] 06-21-2024 10:54-0500 Body mass index (BMI) [Ratio] 26.56 kg/m2 Bradford Love APRN.EXPLORATION DRILLER Work Phone: [facility] 06-21-2024 10:54-0500 Body weight 68 kg Bradford Love RECRUITING ASSISTANT.EXPLORATION DRILLER Work Phone: [facility] 06-21-2024 10:54-0500 Diastolic blood pressure 73 mm[Hg] Bradford Love RECRUITING ASSISTANT.EXPLORATION DRILLER Work Phone: [facility] 06-21-2024 10:54-0500 Heart rate 101 /min Bradford Love RECRUITING ASSISTANT.EXPLORATION DRILLER Work Phone: [facility] 06-21-2024 10:54-0500 Respiratory rate 16 /min Bradford Love RECRUITING ASSISTANT.EXPLORATION DRILLER Work Phone: [facility] 06-21-2024 10:54-0500 Systolic blood pressure 109 mm[Hg] Bradford Love RECRUITING ASSISTANT.EXPLORATION DRILLER Work Phone: [facility] 02-26-2024 12:39-0400 Body mass index (BMI) [Ratio] 26.4 kg/m2 Ruddy Cooper MD Work Phone: [facility] 02-26-2024 12:39-0400 Body weight 67.6 kg Ruddy Cooper MD Work Phone: [facility] 02-26-2024 12:39-0400 Diastolic blood pressure 78 mm[Hg] Ruddy Cooper MD Work Phone: [facility] 02-26-2024 12:39-0400 Heart rate 87 /min Ruddy Cooper MD Work Phone: [facility] 02-26-2024 12:39-0400 SaO2% (BldA) [Mass fraction] 97 % Ruddy Cooper MD Work Phone: [facility] 02-26-2024 12:39-0400 Systolic blood pressure 110 mm[Hg] Ruddy Cooper MD Work Phone: [facility] 02-25-2024 12:48-0400 Body mass index (BMI) [Ratio] 26.48 kg/m2 Raphael Perdomo APRN.PHYSICIAN ANESTHESIOLOGIST Work Phone: [facility] 02-25-2024 12:48-0400 Body temperature 97.3 [degF] [place] Perdomo RECRUITING ASSISTANT.PHYSICIAN ANESTHESIOLOGIST Work Phone: [facility] 02-25-2024 12:48-0400 Body weight 67.8 kg Raphael Perdomo RECRUITING ASSISTANT.PHYSICIAN ANESTHESIOLOGIST Work Phone: [facility] 02-25-2024 12:48-0400 Diastolic blood pressure 80 mm[Hg] Raphael Perdomo RECRUITING ASSISTANT.PHYSICIAN ANESTHESIOLOGIST Work Phone: [facility] 02-25-2024 12:48-0400 Heart rate 99 /min Raphael Perdomo RECRUITING ASSISTANT.PHYSICIAN ANESTHESIOLOGIST Work Phone: [facility] 02-25-2024 12:48-0400 SaO2% (BldA) [Mass fraction] 96 % Raphael Perdomo RECRUITING ASSISTANT.PHYSICIAN ANESTHESIOLOGIST Work Phone: [facility] 02-25-2024 12:48-0400 Systolic blood pressure 120 mm[Hg] [place] Perdomo RECRUITING ASSISTANT.PHYSICIAN ANESTHESIOLOGIST Work Phone: [facility] 12-19-2023 11:05-0400 Body mass index (BMI) [Ratio] 26.44 kg/m2 Bradford Love RECRUITING ASSISTANT.EXPLORATION DRILLER Work Phone: [facility] 12-19-2023 11:05-0400 Body weight 67.7 kg Bradfordcasey Alvarados RECRUITING ASSISTANT.EXPLORATION DRILLER Work Phone: [facility] 12-19-2023 11:05-0400 Diastolic blood pressure 71 mm[Hg] Bradford Love RECRUITING ASSISTANT.EXPLORATION DRILLER Work Phone: [facility] 12-19-2023 11:05-0400 Heart rate 87 /min Bradford Love RECRUITING ASSISTANT.EXPLORATION DRILLER Work Phone: [facility] 12-19-2023 11:05-0400 Respiratory rate 16 /min Bradford Love RECRUITING ASSISTANT.EXPLORATION DRILLER Work Phone: [facility] 12-19-2023 11:05-0400 Systolic blood pressure 118 mm[Hg] Bradford Love RECRUITING ASSISTANT.EXPLORATION DRILLER Work Phone: [facility] 12-10-2023 14:46-0400 Body mass index (BMI) [Ratio] 26.48 kg/m2 Ruddy Cooper MD Work Phone: [facility] 12-10-2023 14:46-0400 Body temperature 97.3 [degF] Ruddy Cooper MD Work Phone: [facility] 12-10-2023 14:46-0400 Body weight 67.8 kg Ruddy Cooper MD Work Phone: [facility] 12-10-2023 14:46-0400 Diastolic blood pressure 82 mm[Hg] Ruddy Cooper MD Work Phone: [facility] 12-10-2023 14:46-0400 Heart rate 72 /min Ruddy Cooper MD Work Phone: [facility] 12-10-2023 14:46-0400 Respiratory rate 16 /min Ruddy Cooper MD Work Phone: [facility] 12-10-2023 14:46-0400 SaO2% (BldA) [Mass fraction] 96 % Ruddy Cooper MD Work Phone: [facility] 12-10-2023 14:46-0400 Systolic blood pressure 126 mm[Hg] Ruddy Cooper MD Work Phone: [facility] 10-22-2023 12:00-0400 Heart rate 100 /min Charleen Rocha PT [facility] Comment on above: after walking 10-22-2023 12:00-0400 SaO2% (BldA) [Mass fraction] 99 % Charleen Rocha PT [facility] 10-20-2023 15:00-0400 SaO2% (BldA) [Mass fraction] 98 % Charleen Rocha PT [facility] 10-14-2023 12:00-0400 Body mass index (BMI) [Ratio] 26.56 kg/m2 Ruiz Serrato APRN.PHYSICIAN ANESTHESIOLOGIST Work Phone: [facility] 10-14-2023 12:00-0400 Body temperature 97.59 [degF] Ruiz Serrato APRN.PHYSICIAN ANESTHESIOLOGIST Work Phone: [facility] 10-14-2023 12:00-0400 Body weight 68 kg [facility] RECRUITING ASSISTANT.PHYSICIAN ANESTHESIOLOGIST Work Phone: [facility] 10-14-2023 12:00-0400 Diastolic blood pressure 79 mm[Hg] Ruiz Pendlebury RECRUITING ASSISTANT.PHYSICIAN ANESTHESIOLOGIST Work Phone: [facility] 10-14-2023 12:00-0400 Heart rate 105 /min Ruiz Pendlebury RECRUITING ASSISTANT.PHYSICIAN ANESTHESIOLOGIST Work Phone: [facility] 10-14-2023 12:00-0400 Respiratory rate 18 /min [facility] RECRUITING ASSISTANT.PHYSICIAN ANESTHESIOLOGIST Work Phone: [facility] 10-14-2023 12:00-0400 SaO2% (BldA) [Mass fraction] 100 % [facility] RECRUITING ASSISTANT.PHYSICIAN ANESTHESIOLOGIST Work Phone: [facility] 10-14-2023 12:00-0400 Systolic blood pressure 117 mm[Hg] Ruiz Pendlebury RECRUITING ASSISTANT.PHYSICIAN ANESTHESIOLOGIST Work Phone: [facility] 09-10-2023 13:20-0400 Body mass index (BMI) [Ratio] 26.75 kg/m2 [place] Perdomo RECRUITING ASSISTANT.PHYSICIAN ANESTHESIOLOGIST Work Phone: [facility] 09-10-2023 13:20-0400 Body temperature 97.7 [degF] [place] Perdomo RECRUITING ASSISTANT.PHYSICIAN ANESTHESIOLOGIST Work Phone: [facility] 09-10-2023 13:20-0400 Body weight 68.49 kg [place] Perdomo RECRUITING ASSISTANT.PHYSICIAN ANESTHESIOLOGIST Work Phone: [facility] 09-10-2023 13:20-0400 Diastolic blood pressure 87 mm[Hg] [place] Perdomo RECRUITING ASSISTANT.PHYSICIAN ANESTHESIOLOGIST Work Phone: [facility] 09-10-2023 13:20-0400 Heart rate 100 /min Raphael Perdomo RECRUITING ASSISTANT.PHYSICIAN ANESTHESIOLOGIST Work Phone: [facility] 09-10-2023 13:20-0400 SaO2% (BldA) [Mass fraction] 96 % Raphael Perdomo RECRUITING ASSISTANT.PHYSICIAN ANESTHESIOLOGIST Work Phone: [facility] 09-10-2023 13:20-0400 Systolic blood pressure 125 mm[Hg] Raphael Riddleenter RECRUITING ASSISTANT.PHYSICIAN ANESTHESIOLOGIST Work Phone: [facility] 09-08-2023 13:19-0400 Body mass index (BMI) [Ratio] 26.75 kg/m2 Bradford Love RECRUITING ASSISTANT.EXPLORATION DRILLER Work Phone: [facility] 09-08-2023 13:19-0400 Body weight 68.49 kg Bradford Love RECRUITING ASSISTANT.EXPLORATION DRILLER Work Phone: [facility] 09-08-2023 13:19-0400 Diastolic blood pressure 85 mm[Hg] Bradford Love RECRUITING ASSISTANT.EXPLORATION DRILLER Work Phone: [facility] [facility] 09-08-2023 13:19-0400 Heart rate 108 /min Bradford Love RECRUITING ASSISTANT.EXPLORATION DRILLER Work Phone: [facility] 09-08-2023 13:19-0400 Respiratory rate 16 /min Bradford Love RECRUITING ASSISTANT.EXPLORATION DRILLER Work Phone: [facility] 09-08-2023 13:19-0400 Systolic blood pressure 132 mm[Hg] Bradford Love RECRUITING ASSISTANT.EXPLORATION DRILLER Work Phone: [facility] 09-05-2023 16:38-0400 Body mass index (BMI) [Ratio] 26.75 kg/m2 Ruddy Cooper MD Work Phone: [facility] 09-05-2023 16:38-0400 Body temperature 97.9 [degF] Ruddy Cooper MD Work Phone: [facility] 09-05-2023 16:38-0400 Body weight 68.49 kg Ruddy Cooper MD Work Phone: [facility] 09-05-2023 16:38-0400 Diastolic blood pressure 72 mm[Hg] Ruddy Cooper MD Work Phone: [facility] 09-05-2023 16:38-0400 Heart rate 103 /min Ruddy Cooper MD Work Phone: [facility] 09-05-2023 16:38-0400 Respiratory rate 18 /min Ruddy Cooper MD Work Phone: [facility] 09-05-2023 16:38-0400 SaO2% (BldA) [Mass fraction] 99 % Ruddy Cooper MD Work Phone: [facility] 09-05-2023 16:38-0400 Systolic blood pressure 124 mm[Hg] Ruddy Cooper MD Work Phone: [facility] 05-26-2023 15:39-0500 Body weight 69.4 kg Ruddy Cooper MD Work Phone: [facility] 05-26-2023 15:39-0500 Diastolic blood pressure 80 mm[Hg] Ruddy Cooper MD Work Phone: [facility] 05-26-2023 15:39-0500 Heart rate 74 /min Ruddy Cooper MD Work Phone: [facility] 05-26-2023 15:39-0500 Respiratory rate 16 /min Ruddy Cooper MD Work Phone: [facility] 05-26-2023 15:39-0500 Systolic blood pressure 122 mm[Hg] Ruddy Cooper MD Work Phone: [facility] 04-03-2023 14:02-0500 Body temperature 97.39 [degF] Raphael Perdomo RECRUITING ASSISTANT.PHYSICIAN ANESTHESIOLOGIST Work Phone: [facility] 04-03-2023 14:02-0500 Body weight 68.95 kg [place] Perdomo RECRUITING ASSISTANT.PHYSICIAN ANESTHESIOLOGIST Work Phone: [facility] 04-03-2023 14:02-0500 Diastolic blood pressure 76 mm[Hg] [place] Perdomo RECRUITING ASSISTANT.PHYSICIAN ANESTHESIOLOGIST Work Phone: [facility] 04-03-2023 14:02-0500 Heart rate 77 /min Raphael Perdomo RECRUITING ASSISTANT.PHYSICIAN ANESTHESIOLOGIST Work Phone: [facility] 04-03-2023 14:02-0500 Systolic blood pressure 123 mm[Hg] Raphael Riddleenter RECRUITING ASSISTANT.PHYSICIAN ANESTHESIOLOGIST Work Phone: [facility] 12-24-2022 09:18-0400 Body height 160 cm Sheela Celeste PA-C Work Phone: [facility] 12-24-2022 09:18-0400 Body weight 66.68 kg Sheela Celeste PA-C Work Phone: [facility] 10-18-2022 13:22-0400 Body weight 68.95 kg Bradford Love RECRUITING ASSISTANT.EXPLORATION DRILLER Work Phone: [facility] 10-18-2022 13:22-0400 Diastolic blood pressure 70 mm[Hg] Bradford Love RECRUITING ASSISTANT.EXPLORATION DRILLER Work Phone: [facility] 10-18-2022 13:22-0400 Heart rate 96 /min Bradford Love RECRUITING ASSISTANT.EXPLORATION DRILLER Work Phone: [facility] 10-18-2022 13:22-0400 Respiratory rate 16 /min Bradford Love RECRUITING ASSISTANT.EXPLORATION DRILLER Work Phone: [facility] 10-18-2022 13:22-0400 Systolic blood pressure 114 mm[Hg] Bradford Love RECRUITING ASSISTANT.EXPLORATION DRILLER Work Phone: [facility] 06-27-2022 11:17-0500 Body weight 66.22 kg Bradford Love RECRUITING ASSISTANT.EXPLORATION DRILLER Work Phone: [facility] 06-27-2022 11:17-0500 Diastolic blood pressure 70 mm[Hg] Bradford Love RECRUITING ASSISTANT.EXPLORATION DRILLER Work Phone: [facility] 06-27-2022 11:17-0500 Heart rate 97 /min Bradford Love RECRUITING ASSISTANT.EXPLORATION DRILLER Work Phone: [facility] 06-27-2022 11:17-0500 Respiratory rate 16 /min Bradford Love RECRUITING ASSISTANT.EXPLORATION DRILLER Work Phone: [facility] 06-27-2022 11:17-0500 SaO2% (BldA) [Mass fraction] 97 % Bradford Love RECRUITING ASSISTANT.EXPLORATION DRILLER Work Phone: [facility] 06-27-2022 11:17-0500 Systolic blood pressure 110 mm[Hg] Bradford Love RECRUITING ASSISTANT.EXPLORATION DRILLER Work Phone: [facility] 05-24-2022 12:38-0500 Body height 160.7 cm [place] Perdomo RECRUITING ASSISTANT.PHYSICIAN ANESTHESIOLOGIST Work Phone: [facility] 05-24-2022 12:38-0500 Body temperature 97 [degF] Raphael Perdomo RECRUITING ASSISTANT.PHYSICIAN ANESTHESIOLOGIST Work Phone: [facility] 05-24-2022 12:38-0500 Body weight 65.32 kg Raphael Perdomo RECRUITING ASSISTANT.PHYSICIAN ANESTHESIOLOGIST Work Phone: [facility] 05-24-2022 12:38-0500 Diastolic blood pressure 71 mm[Hg] Raphael Perdomo RECRUITING ASSISTANT.PHYSICIAN ANESTHESIOLOGIST Work Phone: [facility] 05-24-2022 12:38-0500 Heart rate 106 /min [place] Perdomo RECRUITING ASSISTANT.PHYSICIAN ANESTHESIOLOGIST Work Phone: [facility] 05-24-2022 12:38-0500 Systolic blood pressure 104 mm[Hg] Raphael Perdomo RECRUITING ASSISTANT.PHYSICIAN ANESTHESIOLOGIST Work Phone: [facility] 04-18-2022 11:00-0500 Body temperature 97.11 [degF] Treatment Wstr Work Phone: [facility] 04-18-2022 11:00-0500 Diastolic blood pressure 69 mm[Hg] Treatment Wstr Work Phone: [facility] 04-18-2022 11:00-0500 Heart rate 100 /min Treatment Wstr Work Phone: [facility] 04-18-2022 11:00-0500 Systolic blood pressure 118 mm[Hg] Treatment Wstr Work Phone: [facility] 03-28-2022 13:50-0500 Body weight 63.5 kg Bradfordcasey Alvarados RECRUITING ASSISTANT.EXPLORATION DRILLER Work Phone: [facility] 03-28-2022 13:50-0500 Diastolic blood pressure 68 mm[Hg] Bradford Love RECRUITING ASSISTANT.EXPLORATION DRILLER Work Phone: [facility] 03-28-2022 13:50-0500 Heart rate 106 /min Bradford Love RECRUITING ASSISTANT.EXPLORATION DRILLER Work Phone: [facility] 03-28-2022 13:50-0500 Respiratory rate 16 /min Bradford Love RECRUITING ASSISTANT.EXPLORATION DRILLER Work Phone: [facility] 03-28-2022 13:50-0500 SaO2% (BldA) [Mass fraction] 100 % Bradford Love RECRUITING ASSISTANT.EXPLORATION DRILLER Work Phone: [facility] 03-28-2022 13:50-0500 Systolic blood pressure 104 mm[Hg] Bradford Olve RECRUITING ASSISTANT.EXPLORATION DRILLER Work Phone: [facility] 11-29-2021 09:35-0400 Body height 161.3 cm Sheela Celeste PA-C Work Phone: [facility] 11-29-2021 09:35-0400 Body weight 63.5 kg Sheela Celeste PA-C Work Phone: [facility] 11-21-2021 13:25-0400 Body height 162 cm Raphael Perdomo RECRUITING ASSISTANT.PHYSICIAN ANESTHESIOLOGIST Work Phone: [facility] 11-21-2021 13:25-0400 Body temperature 97.81 [degF] [place] Perdomo RECRUITING ASSISTANT.PHYSICIAN ANESTHESIOLOGIST Work Phone: [facility] 11-21-2021 13:25-0400 Body weight 63.5 kg [place] Perdomo RECRUITING ASSISTANT.PHYSICIAN ANESTHESIOLOGIST Work Phone: [facility] 11-21-2021 13:25-0400 Diastolic blood pressure 81 mm[Hg] [place] Perdomo RECRUITING ASSISTANT.PHYSICIAN ANESTHESIOLOGIST Work Phone: [facility] 11-21-2021 13:25-0400 Heart rate 106 /min [place] Perdomo RECRUITING ASSISTANT.PHYSICIAN ANESTHESIOLOGIST Work Phone: [facility] 11-21-2021 13:25-0400 SaO2% (BldA) [Mass fraction] 96 % Raphael Riddleenter RECRUITING ASSISTANT.PHYSICIAN ANESTHESIOLOGIST Work Phone: [facility] 11-21-2021 13:25-0400 Systolic blood pressure 121 mm[Hg] Raphael Riddleenter RECRUITING ASSISTANT.PHYSICIAN ANESTHESIOLOGIST Work Phone: [facility] 10-23-2021 11:00-0400 Body temperature 97 [degF] Treatment Wstr Work Phone: [facility] 10-23-2021 11:00-0400 Diastolic blood pressure 66 mm[Hg] Treatment Wstr Work Phone: [facility] 10-23-2021 11:00-0400 Heart rate 94 /min Treatment Wstr Work Phone: [facility] 10-23-2021 11:00-0400 Respiratory rate 16 /min Treatment Wstr Work Phone: [facility] 10-23-2021 11:00-0400 SaO2% (BldA) [Mass fraction] 99 % Treatment Wstr Work Phone: [facility] 10-23-2021 11:00-0400 Systolic blood pressure 116 mm[Hg] Treatment Wstr Work Phone: [facility] 10-17-2021 09:14-0400 Body weight 63.05 kg Ruddy Cooper MD Work Phone: [facility] 10-17-2021 09:14-0400 Diastolic blood pressure 64 mm[Hg] Ruddy Cooper MD Work Phone: [facility] 10-17-2021 09:14-0400 Heart rate 90 /min Ruddy Cooper MD Work Phone: [facility] 10-17-2021 09:14-0400 SaO2% (BldA) [Mass fraction] 100 % Ruddy Cooper MD Work Phone: [facility] 10-17-2021 09:14-0400 Systolic blood pressure 122 mm[Hg] Ruddy Cooper MD Work Phone: [facility] 10-08-2021 12:10-0400 Body temperature 97.3 [degF] [facility] RECRUITING ASSISTANT.PHYSICIAN ANESTHESIOLOGIST Work Phone: [facility] 10-08-2021 12:10-0400 Body weight 63.78 kg [facility] RECRUITING ASSISTANT.PHYSICIAN ANESTHESIOLOGIST Work Phone: [facility] 10-08-2021 12:10-0400 Diastolic blood pressure 70 mm[Hg] [facility] RECRUITING ASSISTANT.PHYSICIAN ANESTHESIOLOGIST Work Phone: [facility] 10-08-2021 12:10-0400 Heart rate 103 /min [facility] RECRUITING ASSISTANT.PHYSICIAN ANESTHESIOLOGIST Work Phone: [facility] 10-08-2021 12:10-0400 Respiratory rate 20 /min [facility] RECRUITING ASSISTANT.PHYSICIAN ANESTHESIOLOGIST Work Phone: [facility] 10-08-2021 12:10-0400 SaO2% (BldA) [Mass fraction] 99 % [facility] RECRUITING ASSISTANT.PHYSICIAN ANESTHESIOLOGIST Work Phone: [facility] 10-08-2021 12:10-0400 Systolic blood pressure 96 mm[Hg] [facility] RECRUITING ASSISTANT.PHYSICIAN ANESTHESIOLOGIST Work Phone: [facility] 08-31-2021 16:38-0400 Body temperature 97.7 [degF] [facility] Work Phone: 08-31-2021 16:38-0400 Diastolic blood pressure 81 mm[Hg] [facility] Work Phone: 08-31-2021 16:38-0400 Heart rate 83 /min [facility] Work Phone: 08-31-2021 16:38-0400 Respiratory rate 18 /min [facility] Work Phone: 08-31-2021 16:38-0400 SaO2% (BldA) [Mass fraction] 98 % [facility] Work Phone: 08-31-2021 16:38-0400 Systolic blood pressure 106 mm[Hg] [facility] Work Phone: 08-31-2021 13: Body height 161.01 cm [facility] Work Phone: 08-31-2021 13:040 Body mass index (BMI) [Ratio] 24.8 kg/m2 [facility] Work Phone: 08-31-2021 13: Body weight 64.35 kg [facility] Work Phone: Encounters Encounter Date Encounter Type Care Provider Facility Start: 10-19-2024 Evaluation and management of inpatient Dr. Desiree Awan MD -[facility] 3 Work Phone: Start: 10-19-[address] Ruddy Cooper MD Work Phone: [facility] Work Phone: Start: 10-19-2024 End: 10-19-2024 [facility] Comment on above: Needs assistance [facility] community resources (Primary Dx); Coordination of complex care Start: 10-18-2024 End: 10-19-2024 Patient Msg Dea [facility] Primary [facility] Social Work Comment on above: Social Work Food insecurity (Monica tosha Dx); Encounter for screening involving social determinants of health (SDoH) Judi's appt Fri Start: 10-14-2024 End: 10-18-2024 [facility] Comment on above: Food insecurity (Monica tosha Dx); Encounter for screening involving social determinants of health (SDoH) Start: 10-13-2024 End: 10-15-2024 Patient Outreach Mireya Thomas RN [employer] Comment on above: Transition Of Care ( TCM Initial Outreach//Discharged 10/12/24 [place]) Initial phone contact for Transitional Care Management Patient Update Transition Of Care ( Inbound call ) Transition Of Care ( TCM Outreach) Started Weekly phone contact (Recurring) for Transitional Care Management Home Health Orders Start: 10-12-2024 Non-patient / Non-visit Dr. Haley Baer MD -[place] Work Phone: Start: 10-11-2024 Non-patient / Non-visit Dr. Haley Baer MD -[facility] Work Phone: Start: 10-10-2024 Non-patient / Non-visit Dr. Haley Baer MD -[facility] Work Phone: Start: 10-10-2024 ambulatory Luis Baer Fac ility:[facility] Start: 10-10-2024 End: 10-12-2024 Evaluation and management of inpatient Dr. Luis Baer MD -[facility] 3 Work Phone: Start: 10-02-2024 End: 10-05-2024 ambulatory Bradford Love APRN.EXPLORATION DRILLER Work Phone: [facility] [place] Comment on above: Judi Krause'zev [birth year] 3 visit Start: 09-22-2024 End: 09-22-2024 ambulatory Mary Ann Gustafson MA [facility] Start: 09-22-2024 End: 09-22-2024 Patient encounter procedure Mary Ann Gustafson MA [facility] Comment on above: Population Health Na vigation Outreach ([facility] [place] [facility] [place] Start: 09-14-2024 End: 09-14-2024 ambulatory RUDDY COOPER Facility:[facility] Start: 09-08-2024 End: 09-09-2024 Emergency department patient visit Dr. Ruddy Cooper MD Work Phone: -Emergency Department Work Phone: Start: 09-08-2024 End: 09-08-2024 Telephone encounter Salome ESQUIVEL Navigation Start: 09-07-2024 End: 09-07-2024 Office outpatient visit 25 minutes Bradford Love APRN.EXPLORATION DRILLER Work Phone: [facility] [place] Comment on above: Frequent falls (Prim gilberto Dx); Failure to thrive in adult; Dementia with other behavioral disturbance, unspecified dementia severity, unspecified dementia type (HCC); Primary hypertension; Urinary tract infection without hematuria, site unspecified; Type 2 diabetes mellitus with diabetic neuropathy, without long-term current use of insulin (HCC); 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) Start: 09-07-2024 End: 09-07-2024 ambulatory [facility] Facility:[facility] Start: 09-05-2024 End: 09-07-2024 ambulatory Ruddy Cooper MD Work Phone: [facility] [place] Comment on above: Judi's current ment al state Start: 09-01-2024 End: 09-01-2024 Patient Outreach Lamar De Leon RN Work Phone: [employer] Comment on above: Transition Of Care I nitial phone contact for Transitional Care Management Started Weekly phone contact (Recurring) for Transitional Care Management Start: 08-30-2024 Non-patient / Non-visit Dr. Jose rees DO [facility] Work Phone: Start: 08-29-2024 Non-patient / Non-visit Dr. Hatfield [facility] Work Phone: Start: 08-28-2024 Non-patient / Non-visit Dr. Liu CAPPS [facility] Work Phone: Start: 08-27-2024 Non-patient / Non-visit Dr. Hatfield [facility] Work Phone: Start: 08-26-2024 End: 08-26-2024 Telephone encounter Raphael Perdomo APRN.PHYSICIAN ANESTHESIOLOGIST Work Phone: Hematology/Oncology Comment on above: Patient Update Start: 08-26-2024 Non-patient / Non-visit Dr. Liu CAPPS [facility] Work Phone: Start: 08-25-2024 ambulatory Ruddy Cooper Facilit y:[facility] Start: 08-25-2024 End: 08-30-2024 Evaluation and management of inpatient Dr. Jose Mariee DO -[facility] Surgical 3 Work Phone: Start: 08-24-2024 End: 08-24-2024 ambulatory Khris Salinas MD Work Phone: Neurology Comment on above: Status of Judi'zev te st results Start: 08-19-2024 End: 08-24-2024 ambulatory Ruddy Cooper MD Work Phone: [facility] [place] Comment on above: Urine test Start: 08-17-2024 [...] Start: 08-16-2024 End: 08-16-2024 ambulatory KHRIS SALINAS Facility:[facility] Start: 08-11-2024 End: 08-11-2024 ambulatory Ruddy Cooper MD Work Phone: [facility] [place] Comment on above: Preventative UTI Barb trum Dose Start: 08-11-2024 End: 10-11-2024 Follow-up encounter Althea VELA Work Phone: [facility] Start: 08-09-2024 End: 08-09-2024 ambulatory Raphael Perdomo APRN.PHYSICIAN ANESTHESIOLOGIST Work Phone: Hematology/Oncology Comment on above: Judi sotomayor. M ay 1 Start: 08-09-2024 End: 08-09-2024 Office outpatient new 30 minutes Zafar Brown PA-C Work Phone: [facility] Comment on above: Urinary frequency (P rimary Dx); Acute UTI Start: 08-08-2024 End: 08-09-2024 ambulatory Raphael Perdomo APRN.PHYSICIAN ANESTHESIOLOGIST Work Phone: Hematology/Oncology Comment on above: Judi Coronaer 08/26/24 appt. Start: 08-03-2024 End: 08-03-2024 Telephone encounter Salome ESQUIVEL Navigation Start: 07-21-2024 End: 07-21-2024 Telephone encounter Zafar Jones MD Work Phone: [facility] Comment on above: Patient Question Start: 06-29-2024 End: 08-29-2024 Follow-up encounter Bradford Love APRN.EXPLORATION DRILLER Work Phone: [facility] [place] Start: 06-25-2024 End: 06-28-2024 Telephone encounter Salome ESQUIVEL Navigation Start: 06-22-2024 End: 06-22-2024 ambulatory RUDDY COOPER Facility:[facility] Start: 06-22-2024 End: 06-22-2024 Nursing evaluation of patient and report Nroris Young RN Work Phone: Endocrinology Comment on above: Type 2 diabetes lona itus with diabetic neuropathy, without long-term current use of insulin (HCC) (Primary Dx) Start: 06-21-2024 End: 06-23-2024 Telephone encounter Bradford Love APRN.EXPLORATION DRILLER Work Phone: Diabetic Education [facility] Comment on above: Orders Future Appointment ( Reestablish Care JUAN Jones) Start: 06-21-2024 End: 06-22-2024 ambulatory Bradford Love APRN.EXPLORATION DRILLER Work Phone: [facility] [place] Comment on above: Question about my mo ther Judi Krause Start: 06-21-2024 End: 06-21-2024 Office outpatient visit 25 minutes Bradford Love APRN.EXPLORATION DRILLER Work Phone: [facility] [place] Comment on above: Primary hypertension (Primary Dx); Type 2 diabetes mellitus with diabetic neuropathy, without long-term current use of insulin (HCC); Arthritis of hand; Vitamin D deficiency; Encounter for screening mammogram for breast cancer Start: 06-18-2024 End: 06-18-2024 ambulatory BRADFORD LOVE Facility:[facility] Start: 03-15-2024 End: 03-15-2024 ambulatory RUDDY COOPER Facility:[facility] Start: 03-02-2024 End: 03-02-2024 ambulatory Monae Ch RN Work Phone: [employer] Start: 03-02-2024 End: 03-02-2024 Patient encounter procedure Monae Ch RN Work Phone: [employer] Comment on above: JENNIFER MEMBRENO RN ( ED Utilization Review per request of payor/) Start: 02-27-2024 End: 02-27-2024 Emergency department patient visit Ruddy Cooper Facility:[facility] Start: 02-26-2024 End: 02-26-2024 [facility] Start: 02-26-2024 End: 02-26-2024 Subsequent hospital visit by physician [facility] Work Phone: Radiology Comment on above: Arthritis of hand [M 19.049] Start: 02-26-2024 End: 02-26-2024 ambulatory RUDDY COOPER Facility:[facility] Start: 02-26-2024 End: 02-26-2024 Office outpatient visit 25 minutes Ruddy Cooper MD Work Phone: [facility] [place] Comment on above: Arthritis of hand (P rimary Dx); Type 2 diabetes mellitus with diabetic neuropathy, without long-term current use of insulin (HCC); Dupuytren's contracture; Vitamin D deficiency; Encounter for long-term current use of medication Start: 02-25-2024 End: 02-25-2024 ambulatory Raphael Perdomo APRN.PHYSICIAN ANESTHESIOLOGIST Work Phone: Hematology/Oncology Comment on above: Invasive ductal carc inoma of breast, left (HCC) (Primary Dx); Ductal carcinoma in situ (DCIS) of right breast Start: 02-25-2024 End: 02-25-2024 Patient encounter procedure Raphael Perdomo APRN.PHYSICIAN ANESTHESIOLOGIST Work Phone: Hematology/Oncology Start: 02-11-2024 End: 02-17-2024 Telephone encounter Ruddy Cooper MD Work Phone: Internal Medicine [place] Comment on above: Patient Question Start: 01-27-2024 End: 01-27-2024 ambulatory Charleen O'Casper PT [facility] Physical Therapy Comment on above: Complaints of leg we akness (Primary Dx); Gait difficulty Start: 01-20-2024 End: 01-20-2024 ambulatory Charleen O'Casper PT [place] [facility] Physical Therapy Comment on above: Complaints of leg we akness (Primary Dx); Gait difficulty Start: 01-13-2024 End: 01-13-2024 ambulatory Charleen O'Casper PT [facility] Physical Therapy Comment on above: Complaints of leg we akness (Primary Dx); Gait difficulty Start: 01-07-2024 End: 01-08-2024 Documentation procedure Mammography Coordinator [facility] Department Start: 01-07-2024 End: 01-08-2024 Letter encounter Mammography Coordinator [facility] Start: 01-07-2024 End: 01-08-2024 Telephone encounter Raphael Perdomo APRN.PHYSICIAN ANESTHESIOLOGIST Work Phone: Hematology/Oncology Comment on above: Patient Update Start: 01-06-2024 End: 01-06-2024 ambulatory Charleen O'Casper PT [facility] Physical Therapy Comment on above: Complaints of leg we akness (Primary Dx); Gait difficulty Start: 01-06-2024 End: 01-06-2024 Subsequent hospital visit by physician Screen Mammo [facility] Mammogram Comment on above: Screening mammogram for breast cancer [Z12.31] Start: 01-02-2024 End: 01-02-2024 ambulatory RUDDY COOPER Facility:[facility] Start: 01-01-2024 End: 01-01-2024 Telephone encounter Wesly Sepulveda APRN.PHYSICIAN ANESTHESIOLOGIST Work Phone: [facility] Comment on above: Appointment Orders Start: 12-22-2023 End: 12-24-2023 Telephone encounter Ruddy Cooper MD Work Phone: Family Medicine [place] Comment on above: requesting med alert rx Medication Problem Start: 12-19-2023 End: 12-19-2023 Telephone encounter Ruddy Cooper MD Work Phone: Internal Medicine [place] Comment on above: Patient Update Start: 12-19-2023 End: 12-19-2023 ambulatory RUDDY COOPER Facility:[facility] Start: 12-19-2023 End: 12-19-2023 Office outpatient visit 25 minutes Bradford Love APRN.EXPLORATION DRILLER Work Phone: [facility] [place] Comment on above: Hypertension (Primar y Dx); Syncope, unspecified syncope type; Type 2 diabetes mellitus with diabetic neuropathy, without long-term current use of insulin (HCC); Screening for diabetic retinopathy; Encounter for immunization; Tinnitus of both ears; 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); Complaints of leg weakness Start: 12-16-2023 End: 12-16-2023 ambulatory Charleen O'Casper PT [facility] Physical Therapy Comment on above: Complaints of leg we akness (Primary Dx); Gait difficulty Start: 12-10-2023 End: 12-10-2023 Patient encounter procedure Ruddy Cooper MD Work Phone: Internal Medicine [place] Comment on above: Patient left without being seen (Primary Dx) Start: 12-10-2023 End: 12-10-2023 ambulatory RUDDY COOPER Facility:[facility] Start: 12-09-2023 End: 12-09-2023 ambulatory RUDDY COOPER Facility:[facility] Start: 12-08-2023 End: 12-08-2023 ambulatory Charleen O'Casper PT [facility] Physical [facility] Comment on above: Complaints of leg we akness (Primary Dx); Gait difficulty Start: 11-26-2023 End: 11-26-2023 ambulatory Charleen O'Casper PT [place] [facility] Physical Therapy Comment on above: Complaints of leg we akness (Primary Dx); Gait difficulty Start: 11-25-2023 Refill Polo Abdullahi Work Phone: Hematology/Oncology Comment on above: Refill Request Start: 11-25-2023 Telephone encounter Bradford walker APRN.EXPLORATION DRILLER Work Phone: Family Medicine [place] Comment on above: Medication Question Start: 11-24-2023 End: 11-24-2023 ambulatory Charleen O'Casper PT [facility] Comment on above: Complaints of leg we akness (Primary Dx); Gait difficulty Start: 11-19-2023 End: 11-19-2023 ambulatory Charleen O'Casper PT [facility] Comment on above: Complaints of leg we akness (Primary Dx); Gait difficulty Start: 11-17-2023 End: 11-17-2023 ambulatory Charleen O'Casper PT [facility] Comment on above: Complaints of leg we akness (Primary Dx); Gait difficulty Start: 11-10-2023 End: 11-10-2023 ambulatory Marissa Lobato PAPER BAG MACHINE OPERATOR Work Phone: [facility] Comment on above: Complaints of leg we akness (Primary Dx); Gait difficulty Start: 11-06-2023 End: 11-06-2023 ambulatory Charleen O'Casper PT [facility] Comment on above: Complaints of leg we akness (Primary Dx); Gait difficulty Start: 11-03-2023 End: 11-03-2023 ambulatory Charlene O'Casper PT [facility] Comment on above: Complaints of leg we akness (Primary Dx); Gait difficulty Start: 10-29-2023 End: 10-29-2023 ambulatory Charleen O'Casper PT [facility] Comment on above: Complaints of leg we akness (Primary Dx); Gait difficulty Start: 10-27-2023 End: 10-27-2023 ambulatory Charleen O'Csaper PT [facility] Comment on above: Complaints of leg we akness (Primary Dx); Gait difficulty Start: 10-22-2023 Telephone encounter Ruddy almeida MD Work Phone: [facility] Comment on above: Concerned for pt-see note; Vomiting; Shortness of Breath Start: 10-22-2023 End: 10-22-2023 ambulatory Charleen O'Casper PT [facility] Comment on above: Complaints of leg we akness (Primary Dx); Gait difficulty Start: 10-20-2023 End: 10-20-2023 ambulatory Charleen O'Casper PT [facility] Comment on above: Complaints of leg we akness (Primary Dx); Gait difficulty Start: 10-14-2023 End: 10-14-2023 Subsequent hospital visit by physician Xr [facility] [place] Work Phone: Radiology Comment on above: Acute left ankle jose luis n [M25.572] Start: 10-14-2023 End: 10-14-2023 Office outpatient visit 15 minutes Ruiz Serrato APRN.PHYSICIAN ANESTHESIOLOGIST Work Phone: [facility] Comment on above: Acute left ankle jose luis n (Primary Dx); Foot pain, left Start: 10-02-2023 Telephone encounter Ruddy almeida MD Work Phone: Internal Medicine [place] Comment on above: Results Start: 09-29-2023 End: 09-29-2023 ambulatory Charleen O'Casper PT [facility] Physical [facility] Comment on above: Gait difficulty (Monica tosha Dx); Complaints of leg weakness Start: 09-26-2023 End: 09-26-2023 Subsequent hospital visit by physician Ct [facility] W[facility] (I-Stat) Work Phone: Cat Scan Comment on above: History of abdominal surgery [Z98.890] Start: 09-15-2023 Refill Bradford Love APRN.EXPLORATION DRILLER Work Phone: Internal Medicine [place] Comment on above: Refill Request Start: 09-10-2023 End: 09-10-2023 ambulatory Treatment Rm 13 [place] [facility] Work Phone: Hematology/Oncology Comment on above: Osteoporosis, unspec ified (Primary Dx) Invasive ductal carc inoma of breast, left (HCC) (Primary Dx); Ductal carcinoma in situ (DCIS) of right breast Start: 09-10-2023 End: 09-10-2023 Patient encounter procedure Raphael Perdomo APRN.PHYSICIAN ANESTHESIOLOGIST Work Phone: Hematology/Oncology Start: 09-08-2023 End: 09-08-2023 Office outpatient visit 25 minutes Bradford Love APRN.CNS Work Phone: Internal Medicine [place] Comment on above: Screening for diabet ic [...] Ruddy almeida MD Work Phone: [facility] [place] Comment on above: results Start: 05-26-2023 End: 05-26-2023 Office outpatient visit 40 minutes Ruddy Cooper MD Work Phone: Internal Medicine [place] Comment on above: Peripheral arterial disease (HCC) (Primary Dx); Primary hypertension; Type 2 diabetes mellitus with diabetic neuropathy, without long-term current use of insulin (HCC); Tinnitus of both ears; Vitamin D deficiency; Mixed hyperlipidemia; Muscle cramping Start: 04-03-2023 End: 04-03-2023 ambulatory Raphael Perdomo APRN.CNP Work Phone: Hematology/Oncology Comment on above: Invasive ductal carc inoma of breast, left (HCC) (Primary Dx); Ductal carcinoma in situ (DCIS) of right breast Start: 04-03-2023 End: 04-03-2023 Patient encounter procedure Raphael Perdomo APRN.CNP Work Phone: [place] [facility] Start: 03-11-2023 Telephone encounter Zafar simmons MD Work Phone: [facility] Comment on above: Results Start: 02-27-2023 End: 02-27-2023 Subsequent hospital visit by physician Mri Radio [facility] (I-Stat/1.5t) Work Phone: Radiology Comment on above: Intracranial aneurys m [I67.1] Start: 02-26-2023 Telephone encounter Ruddy almeida MD Work Phone: Internal Medicine [place] Comment on above: Appointment Start: 01-03-2023 End: 01-03-2023 Subsequent hospital visit by physician Diagnostic Mammo [facility] Mammography Comment on above: Bilateral fibrocysti c breast changes [N60.11, N60.12] Start: 12-24-2022 End: 12-24-2022 Patient encounter procedure Sheela Celeste PA-C Work Phone: [facility] Comment on above: Bilateral fibrocysti c [...] Orders Only Sheela Celeste PA-C Work Phone: [facility] Comment on above: Screening breast exa mination (Primary Dx) Start: 11-29-2022 E-mail encounter fro m caregiver [facility] Provider [facility] Start: 11-29-2022 Follow-up encounter [facility] Provider [facility] Comment on above: Follow up Start: 11-27-2022 Telephone encounter Raphael draper APRN.PHYSICIAN ANESTHESIOLOGIST Work Phone: Hematology/Oncology Comment on above: Medication Problem Start: 11-22-2022 Telephone encounter Bradford walker RECRUITING ASSISTANT.EXPLORATION DRILLER Work Phone: Internal Medicine [place] Comment on above: Results Start: 10-18-2022 End: 10-18-2022 Office outpatient visit 15 minutes Bradford Love RECRUITING ASSISTANT.EXPLORATION DRILLER Work Phone: Internal Medicine [place] Comment on above: Primary hypertension (Primary Dx); Encounter for immunization; Need for shingles vaccine; History of extraction of renal calculus; History of hydronephrosis Start: 10-10-2022 Telephone encounter Raphael draper RECRUITING ASSISTANT.PHYSICIAN ANESTHESIOLOGIST Work Phone: Hematology/Oncology Comment on above: Patient Update Start: 09-30-2022 Telephone encounter Ruddy almeida MD Work Phone: Internal Medicine [place] Comment on above: Patient Question Start: 09-04-2022 Refill Ruddy brothers MD Work Phone: Family [facility] [place] Comment on above: Refill Request Start: 08-28-2022 Refill Ruddy brothers MD Work Phone: Family [facility] [place] Start: 08-06-2022 Refill Ruddy brothers MD Work Phone: Internal Medicine [place] Comment on above: Refill Request Start: 07-24-2022 Documentation procedure Mammog estela Coordinator [facility] Start: 07-24-2022 Letter encounter Mammography Coordinator [facility] Department Start: 07-24-2022 End: 07-24-2022 Subsequent hospital visit by physician Diagnostic Mammo [facility] Mammogram Start: 06-27-2022 End: 06-27-2022 Office outpatient visit 25 minutes Bradford Love APRN.EXPLORATION DRILLER Work Phone: [facility] [place] Comment on above: Type 2 diabetes lona itus with diabetic neuropathy, without long-term current use of insulin (HCC) (Primary Dx); Vitamin D deficiency; Insomnia, unspecified type Start: 05-24-2022 End: 05-24-2022 ambulatory Raphael Perdomo RECRUITING ASSISTANT.PHYSICIAN ANESTHESIOLOGIST Work Phone: Hematology/Oncology Comment on above: Invasive ductal carc inoma of breast, left (HCC) (Primary Dx); Ductal carcinoma in situ (DCIS) of right breast Start: 05-24-2022 End: 05-24-2022 Patient encounter procedure Raphael Perdomo RECRUITING ASSISTANT.PHYSICIAN ANESTHESIOLOGIST Work Phone: [place] [facility] [place] Start: 04-24-2022 Refill Ruddy brothers MD Work Phone: Internal Medicine [place] Comment on above: Refill Request Start: 04-18-2022 End: 04-18-2022 ambulatory Treatment Rm 11 [place] [facility] Work Phone: Hematology/Oncology Comment on above: Osteoporosis, unspec ified (Primary Dx) Start: 03-29-2022 Telephone encounter Raphael draper RECRUITING ASSISTANT.PHYSICIAN ANESTHESIOLOGIST Work Phone: Hematology/Oncology Comment on above: Appointment Start: 03-28-2022 End: 03-28-2022 Office outpatient visit 25 minutes Bradford Love SHAHID.EXPLORATION DRILLER Work Phone: Internal Medicine [place] Comment on above: Preop exam for inter nal medicine (Primary Dx); Type 2 diabetes mellitus with diabetic neuropathy, without long-term current use of insulin (HCC); Need for shingles vaccine; Encounter for immunization; Screening for diabetic retinopathy; Vitamin D deficiency Start: 03-28-2022 End: 03-28-2022 Patient encounter status Bradford Love SHAHID.EXPLORATION DRILLER Work Phone: Internal Medicine [place] Start: 03-01-2022 Orders Only Zfaar Jones MD Work Phone: [facility] Comment on above: Intracranial aneurys m (Primary Dx); Nonruptured cerebral aneurysm Start: 02-18-2022 End: 02-18-2022 Subsequent hospital visit by physician Mri Radio [facility] (I-Stat/1.5t) Work Phone: Radiology Comment on above: 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] Start: 01-14-2022 Telephone encounter Monae Muhammad RN (R n) [facility] Comment on above: Group Tester - O ther (Sending records to [facility]) Start: 01-07-2022 Telephone encounter Michael collins MD Work Phone: Plastic Surgery Comment on above: Patient Question (Horacio dupree called and had question about inplants after radiation.) Start: 12-19-2021 End: 12-19-2021 ambulatory Julianne Saab PT Work Phone: [facility] Comment on above: 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) Start: 12-17-2021 End: 12-17-2021 ambulatory Julianne Saab PT Work Phone: [facility] Comment on above: 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) Start: 12-16-2021 Orders Only Ruddy brothers MD Work Phone: Internal Medicine [place] Comment on above: Vitamin D deficiency (Primary Dx); Type 2 diabetes mellitus with diabetic neuropathy, without long-term current use of insulin (HCC); Generalized anxiety disorder; Mixed hyperlipidemia Start: 12-13-2021 Telephone encounter Zafar simmons MD Work Phone: [facility] Comment on above: Patient Question Start: 12-12-2021 End: 12-12-2021 ambulatory Julianne Saab PT Work Phone: [facility] Comment on above: 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) Start: 12-10-2021 End: 12-10-2021 ambulatory Julianne Saab PT Work Phone: [facility] Comment on above: 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) Start: 12-05-2021 End: 12-05-2021 ambulatory Nunu Luz PAPER BAG MACHINE OPERATOR Work Phone: [facility] Comment on above: 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) Start: 12-05-2021 Telephone encounter Zafar simmons MD Work Phone: [facility] Comment on above: Medical Clearance (R eceived fax request for surgical clearance from [facility] - scanned into [employer]) Start: 12-04-2021 Refill Raphael cuevas APRN.PHYSICIAN ANESTHESIOLOGIST Work Phone: Hematology/Oncology Comment on above: Refill Request Start: 12-03-2021 End: 12-03-2021 ambulatory Nunu Luz PAPER BAG MACHINE OPERATOR Work Phone: [facility] Comment on above: 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) Start: 12-03-2021 E-mail encounter karen m caregiver Monae Mccormack RN [facility] Start: 11-29-2021 Documentation procedure [facility]ammog estela [facility] Start: 11-29-2021 Letter encounter Mammography Coordinator [facility] Department Start: 11-29-2021 End: 11-29-2021 Subsequent hospital visit by physician Screen Mammo [facility] Start: 11-29-2021 End: 11-29-2021 Patient encounter procedure Sheela Celeste PA-C Work Phone: [facility] Comment on above: Bilateral fibrocysti c breast changes (Primary Dx); Personal history of breast cancer; S/P bilateral breast lumpectomy; Use of anastrozole; Encounter for screening mammogram for malignant neoplasm of breast Start: 11-28-2021 End: 11-28-2021 ambulatory Julianne Saab PT Work Phone: [facility] Comment on above: 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) Start: 11-26-2021 End: 11-26-2021 ambulatory Julianne Saab PT Work Phone: [facility] Comment on above: 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) Start: 11-22-2021 End: 11-22-2021 ambulatory Julianne Saab PT Work Phone: [facility] Comment on above: 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) Start: 11-21-2021 End: 11-21-2021 ambulatory Raphael Perdomo APRN.PHYSICIAN ANESTHESIOLOGIST Work Phone: Hematology/Oncology Comment on above: Invasive ductal carc inoma of breast, left (HCC) (Primary Dx); Ductal carcinoma in situ (DCIS) of right breast Start: 11-21-2021 End: 11-21-2021 Patient encounter procedure Raphael Perdomo APRN.PHYSICIAN ANESTHESIOLOGIST Work Phone: [facility] [place] Start: 11-19-2021 End: 11-19-2021 ambulatory Julianne Saab PT Work Phone: [facility] Comment on above: 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) Start: 11-15-2021 End: 11-15-2021 ambulatory Julianne Saab PT Work Phone: [facility] Comment on above: 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) Start: 11-13-2021 End: 11-13-2021 ambulatory Julianne Saab PT Work Phone: [facility] Comment on above: 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) Start: 10-31-2021 End: 10-31-2021 ambulatory Julianne Saab PT Work Phone: [facility] Comment on above: 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) Start: 10-23-2021 End: 10-23-2021 ambulatory Treatment Rm 12 [place] [facility] Work Phone: Hematology/Oncology Comment on above: Osteoporosis, unspec ified (Primary Dx) Start: 10-17-2021 End: 10-17-2021 Office outpatient visit 25 minutes Ruddy Cooper MD Work Phone: Internal Medicine [place] Comment on above: Insomnia, unspecifie d type (Primary Dx); Anxiety; Vitamin D deficiency; Type 2 diabetes mellitus with diabetic neuropathy, without long-term current use of insulin (HCC); Encounter for long-term current use of medication; Malignant neoplasm of nipple of left breast in female, unspecified estrogen receptor status (HCC) Start: 10-08-2021 End: 10-08-2021 Subsequent hospital visit by physician Patricia [facility] Work Phone: Radiology Comment on above: Acute right ankle pa in [M25.571] Start: 10-08-2021 End: 10-08-2021 Patient encounter procedure Ruiz Serrato APRN.CNP Work Phone: [facility] Comment on above: Acute right ankle pa in (Primary Dx) Start: 09-05-2021 Refill Ruddy brothers MD Work Phone: Internal Medicine [place] Comment on above: Refill Request Start: 08-29-2021 End: 08-31-2021 Evaluation and management of inpatient [facility] 3 Start: 08-07-2021 End: 08-07-2021 Subsequent hospital visit by physician Radio General Lurdes Macias Work Phone: Radiology Comment on above: Right knee pain, uns pecified chronicity [M25.561] Start: 08-06-2021 Telephone encounter Candelario woodward MD Work Phone: Orthopaedics Comment on above: Appointment (constru ction ) Start: 12-25-2020 End: 12-25-2020 Subsequent hospital visit by physician Xr [facility] [place] Work Phone: Radiology Comment on above: Cough [R05] Start: 05-06-2020 End: 05-06-2020 Subsequent hospital visit by physician Xr [facility] [place] Work Phone: Radiology Comment on above: Acute left ankle jose luis n [M25.572] Procedures Date Procedure Procedure Detail Performing Clinician Start: 10-19-2024 Urnls dip stick/tabl et reagent auto microscopy Dr. Ruddy Cooper MD Work Phone: Start: 10-19-2024 CT of head without contrast Dr. Ruddy Cooper MD Work Phone: Start: 10-19-[address] Ruddy Cooper MD Work Phone: Start: 10-19-2024 X-ray of chest, PA a nd lateral views Dr. Ruddy Cooper MD Work Phone: Start: 10-11-[address] Ruddy Cooper MD Work Phone: Start: 10-10-2024 Urnls dip stick/tabl et reagent auto microscopy Dr. Ruddy Cooper MD Work Phone: Start: 10-10-2024 X-ray of chest, PA a nd lateral views Dr. Ruddy Cooper MD Work Phone: Start: 10-10-[address] Ruddy Cooper MD Work Phone: Start: 10-10-2024 CT of head without contrast Dr. Ruddy Cooper MD Work Phone: Start: 10-10-[address] Ruddy Cooper MD Work Phone: Start: 10-10-2024 SARS-CoV-2, Influenz a & RSV (PCR) Dr. Ruddy Cooper MD Work Phone: Start: 10-10-[address] Ruddy Cooper MD Work Phone: Start: 09-08-[address] Ruddy [...] et rgnt auto w/o microscopy Charleen Alejandre RECRUITING ASSISTANT.PHYSICIAN ANESTHESIOLOGIST Work Phone: Start: 01-06-2024 Screening digital br east tomosynthesis bi [facility] RECRUITING ASSISTANT.EXPLORATION DRILLER Work Phone: Start: 10-14-2023 Radex ankle complete minimum 3 views Ruiz Serrato RECRUITING ASSISTANT.PHYSICIAN ANESTHESIOLOGIST Work Phone: Start: 02-27-2023 Mra head w/o & w/con trast material Adeline Mares RECRUITING ASSISTANT.PHYSICIAN ANESTHESIOLOGIST Work Phone: Start: 01-03-2023 Us breast uni real t jordana with image limited Sheela Celeste PA-C Work Phone: Start: 01-03-2023 Digital breast tomosynthesis bilateral Sheela Celeste PA-C Work Phone: Start: 07-24-2022 Digital breast tomosynthesis unilateral [facility] Provider Start: 02-18-2022 Mra head w/o & w/con trast asia Mcdaniel RECRUITING ASSISTANT.PHYSICIAN ANESTHESIOLOGIST Work Phone: Start: 11-29-2021 WILLIE SCREENING W AVNI Er tiffanie Celeste PA-C Work Phone: Start: 10-08-2021 Radex ankle complete minimum 3 views Ruiz Serrato RECRUITING ASSISTANT.PHYSICIAN ANESTHESIOLOGIST Work Phone: Start: 08-31-2021 Extracorporeal shock wave lithotripsy Start: 08-30-2021 End: 08-30-2021 Viral antigen assay Start: 08-30-2021 Diagnostic radiograp hy of abdomen Start: 08-29-2021 CT of abdomen and pe lvis without contrast Start: 08-07-2021 Radiologic examinati on knee 3 views Rigoberto Chase RECRUITING ASSISTANT.PHYSICIAN ANESTHESIOLOGIST Work Phone: Start: 12-25-2020 Radiologic exam ches t 2 views Vivi Pedroza RECRUITING ASSISTANT.PHYSICIAN ANESTHESIOLOGIST Work Phone: Start: 05-06-2020 Radex ankle complete minimum 3 views Marbin Burgess MD Work Phone: Start: 08-18-2017 Colonoscopy Candelario woodward MD Work Phone: Start: 08-13-2017 Colonoscopy Julianne Gayle son PT Work Phone: H/O: surgery History of extra ction of renal calculus Bradford Love RECRUITING ASSISTANT.EXPLORATION DRILLER Work Phone: H/O: surgery History of abdom inal surgery Bradford Love RECRUITING ASSISTANT.EXPLORATION DRILLER Work Phone: H/O: surgery History of abdom [...] 09-14-2025 BP Controlled (<130/80) BP Controlled (<130/80) [facility] Start: 09-07-2025 BP Controlled (<130/80) BP Controlled (<130/80) [facility] Start: 08-17-2025 Hepatitis B screening Urine Albumin:Creatinine Ratio [facility] Start: 08-17-2025 Hepatitis B surface antibody level LDL Cholesterol [facility] Start: 08-16-2025 BP Controlled (<130/80) BP Controlled (<130/80) [facility] Start: 06-21-2025 BP Controlled (<130/80) BP Controlled (<130/80) [facility] Start: 03-16-2025 End: 03-16-2025 ambulatory 03/16/2025 1:00 PM EST Visit (SP) Office Hematology/Oncology [address] [place] [address] Raphael Perdomo APRN.PHYSICIAN ANESTHESIOLOGIST [address] [place] [address] 6 MTH OV* Hematology/Oncology Comment on above: 6 MTH OV* Start: 03-08-2025 End: 03-08-2025 Patient encounter procedure 03/08/2025 1:00 PM EST Office Visit NEUROLOGY [address] [place] [address] Melani Zuniga, RECRUITING ASSISTANT.PHYSICIAN ANESTHESIOLOGIST [address] [place] [address] Residual Aneurysm NEUROLOGY Comment on above: Residual Aneurysm Start: 03-01-2025 End: 03-01-2025 Patient encounter procedure 03/01/2025 1:00 PM EST Appointment Cat Scan [address] [place] [address] Dx: 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] Cat Scan Comment on above: Dx: 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 ] Start: 02-25-2025 Annual PCP Team Chronic Disease Visit Annual PCP Team Chronic Disease Visit [facility] Start: 02-25-2025 BP Controlled (<130/80) BP Controlled (<130/80) [facility] in Start: 01-06-2025 End: 01-06-2025 Patient encounter procedure 01/06/2025 11:30 AM EDT Appointment Mammogram [address] [place] [address] Encounter for screening mammogram for breast cancer [Z12.31] Mammogram Comment on above: Encounter for screening mammogram for br east cancer [Z12.31] Start: 12-27-2024 Influenza vaccination Influenza Vaccine (Season Ended) [facility] Start: 12-18-2024 BP Controlled (<130/80) BP Controlled (<130/80) [facility] Start: 12-16-2024 Hemoglobin A1c measurement HbA1C [facility] Start: 12-11-2024 Glaucoma screening Dilated Retinal Exam [facility] Start: 12-09-2024 Annual PCP Team Chronic Disease Visit Annual PCP Team Chronic Disease Visit [facility] Start: 12-06-2024 End: 12-06-2024 Patient encounter procedure 12/06/2024 1:00 PM EDT Office Visit Internal Medicine [place] [address] [place] [address] Bradford Love APRN.EXPLORATION DRILLER [address] [place] [address] 2024 Medicare Wellness Z00.00/HCC Gap Closure [facility] [place] Comment on above: 2024 Medicare Wellness Z00.00/HCC Gap Cl osure Start: 11-25-2024 End: 11-25-2024 Patient encounter procedure 11/25/2024 1:30 PM EDT Office Visit Geriatrics [address] [place] [address] Zabrina Meyer MD [address] [place] [address] Dementia with other behavioral disturbance, unspecified dementia severity, unspecified dementia type (HCC) [F03.918]; Frequent falls [R29.6]; Failure to thrive in adult [R62.7] Geriatrics Comment on above: Dementia with other behavioral disturban ce, unspecified dementia severity, unspecified dementia type (HCC) [F03.918]; Frequent falls [R29.6]; Failure to thrive in adult [R62.7] Start: 11-22-2024 End: 11-22-2024 Patient encounter procedure 11/22/2024 12:30 PM EDT Appointment Radiology [address] [place] [id number] BONE DENSITY Radiology Comment on above: BONE DENSITY Start: 11-10-2024 End: 11-10-2024 Patient encounter procedure 11/10/2024 1:15 PM EDT Office Visit Endocrinology [address] [place] [address] Naty Cho, RECRUITING ASSISTANT.PHYSICIAN ANESTHESIOLOGIST [address] [place] [address] diabetes Endocrinology Comment on above: diabetes Start: 11-04-2024 Screening for osteoporosis Bone Density Screening [facility] Start: 10-27-2024 End: 10-27-2024 Patient encounter procedure 10/27/2024 10:30 AM EDT Office Visit Geriatrics [address] [place], [place] [id number] Zabrina Meyer MD [address] [place] [address] Dementia with other behavioral disturbance, unspecified dementia severity, unspecified dementia type (HCC) [F03.918]; Frequent falls [R29.6]; Failure to thrive in adult [R62.7] Geriatrics Comment on above: Dementia with other behavioral disturban ce, unspecified dementia severity, unspecified dementia type (HCC) [F03.918]; Frequent falls [R29.6]; Failure to thrive in adult [R62.7] Start: 10-25-2024 Influenza vaccination Influenza Vaccine (#1) Edmond Aldo foster Comment on above: Postponed from 12/28/2023 (Declined at t his time) Start: 10-19-2024 Verification routine [facility] Start: 10-19-2024 Admission procedure [facility] Start: 10-19-2024 Hospital admission, emergency, from emergency room, medical nature [facility] Start: 10-19-2024 [facility] Start: 10-19-2024 End: 10-19-2024 Patient encounter procedure 10/19/2024 10:40 AM EDT Office Visit [facility] [place] [address] [place] [address] Bradford Love, RECRUITING ASSISTANT.EXPLORATION DRILLER [address] [place] [address] [facility] 10/10-10/12 UTI/confusion [facility] [place] Comment on above: [facility] 10/10-10/12 UTI/confusion Start: 10-18-2024 End: 10-18-2024 Patient encounter procedure 10/18/2024 11:40 AM EDT Office Visit [facility] [place] [address] [place] [address] Bradford Love, RECRUITING ASSISTANT.EXPLORATION DRILLER [address] [place] [address] [facility] 10/10-10/12 UTI/confusion [facility] [place] Comment on above: [facility] UTI/confusion Start: 10-14-2024 End: 10-14-2024 Patient encounter procedure 10/14/2024 1:30 PM EDT Office Visit Geriatrics [address] [place] [address] Zabrina Meyer MD [address] [place] [address] Dementia with other behavioral disturbance, unspecified dementia severity, unspecified dementia type (HCC) [F03.918]; Frequent falls [R29.6]; Failure to thrive in adult [R62.7] Geriatrics Comment on above: 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, unspecified dementia type (HCC) [F03.918]; Frequent falls [R29.6]; Failure to thrive in adult [R62.7] Start: 10-13-2024 BP Controlled (<130/80) BP Controlled (<130/80) [facility] in Start: 10-12-2024 Referral to service [facility] Start: 10-12-2024 Patient discharge [facility] Start: 10-11-2024 [facility] Start: 10-10-2024 Following clinical pathway protocol [facility] Start: 10-10-2024 Ambulation without limitation [facility] Start: 10-10-2024 Assessment of risk of venous thromboembolism [facility] Start: 10-10-2024 Care regimes management [facility] Start: 10-10-2024 Insertion of catheter into peripheral vein [facility] Start: 10-10-2024 Notification of physician [facility] Start: 10-10-2024 Providing care according to standard [facility] Start: 10-10-2024 End: 10-10-2024 [facility] Start: 10-10-2024 Hospital admission, emergency, from emergency room, medical nature [facility] Start: 10-10-2024 Verification routine [facility] Start: 10-10-2024 Admission procedure [facility] Start: 10-10-2024 End: 10-10-2024 [facility] Start: 10-10-2024 [facility] Start: 10-10-2024 Bacteria identified in Blood by Culture Blood Culture [facility] Start: 10-10-2024 Bacteria identified in Urine by Culture Urine Culture [facility] Start: 09-14-2024 End: 09-14-2024 ambulatory 09/14/2024 1:00 PM EDT Visit (SP) Office Hematology/Oncology [address] [place] [address] Raphael Perdomo APRN.PHYSICIAN ANESTHESIOLOGIST [address] [place] [address] 6 MO OV Hematology/Oncology Comment on above: 6 MO OV Start: 09-13-2024 End: 09-13-2024 Patient encounter procedure [facility] [place] Comment on above: 3mo follow up Start: 09-09-2024 [facility] Start: 09-07-2024 End: 12-07-2024 Urinalysis complete panel - Urine URINALYSIS (WITH MICROSCOPIC) WITH CULTURE IF INDICATED Lab Routine Urinary tract infection without hematuria, site unspecified Expected: 09/07/2024, Expires: 12/07/2024 [facility] Comment on above: Expected: 09/07/2024, Expires: Start: 09-06-2024 End: 09-06-2024 Patient encounter procedure 09/06/2024 2:20 PM EDT Office Visit [facility] [place] [address] [facility] [place] [address] Ruddy Cooper MD [address] [facility] [place] [address] Hospital Follow Up/TCM eligible through 09/13/2024- [facility] Gap Closure [facility] [place] Comment on above: Hospital Follow Up/TCM eligible through 09/13/2024- [facility] Gap Closure Start: 09-04-2024 Annual PCP Team Chronic Disease Visit Annual PCP Team Chronic Disease Visit [facility] Start: 08-30-2024 Patient discharge [facility] Start: 08-30-2024 [facility] Start: 08-27-2024 [facility] Start: 08-26-2024 End: 08-26-2024 ambulatory 08/26/2024 11:30 AM EDT Visit (SP) Office Hematology/Oncology [address] [place] [address] Raphael Perdomo APRN.PHYSICIAN ANESTHESIOLOGIST [address] [place] [address] 6 MO OV Hematology/Oncology Comment on above: 6 MO OV Start: 08-26-2024 Speech therapy assessment [facility] Start: 08-26-2024 Application of intermittent pneumatic compression device [facility] Start: 08-26-2024 Assessment of risk of venous thromboembolism [facility] Start: 08-26-2024 Care regimes management [facility] Start: 08-26-2024 Fall prevention [facility] Start: 08-26-2024 Insertion of catheter into peripheral vein [facility] Start: 08-26-2024 Introduction of urinary catheter [facility] Start: 08-26-2024 Measuring intake and output [facility] Start: 08-26-2024 Notification of physician [facility] Start: 08-26-2024 Providing care according to standard [facility] Start: 08-26-2024 Provision of activity privileges [facility] Start: 08-26-2024 Referral to occupational therapist [facility] Start: 08-26-2024 Referral to service [facility] Start: 08-26-2024 End: 08-26-2024 [facility] Start: 08-26-2024 Following clinical pathway protocol [facility] Start: 08-25-2024 Admission procedure [facility] Start: 08-25-2024 End: 08-25-2024 Patient encounter procedure 08/25/2024 1:30 PM EDT Office Visit Geriatrics [address] [place] [address] Zabrina Meyer MD [address] [place], [place] [address] Cognitive impairment [R41.89] Geriatrics Comment on above: Cognitive impairment [R41.89] Start: 08-16-2024 End: 11-15-2024 IMMUNOFIXATION SCREEN, SERUM IMMUNOFIXATION SCREEN, SERUM Lab Routine DM type 2 with diabetic peripheral neuropathy (HCC) Expected: 08/16/2024, Expires: 11/15/2024 [facility] Comment on above: Expected: 08/16/2024, Expires: Start: 08-16-2024 End: 11-15-2024 Methylmalonate [Moles/volume] in Serum or Plasma METHYLMALONIC ACID Lab Routine DM type 2 with diabetic peripheral neuropathy (HCC) Expected: 08/16/2024, Expires: 11/15/2024 [facility] Comment on above: Expected: 08/16/2024, Expires: Start: 08-16-2024 End: 11-15-2024 Pyridoxine [Mass/volume] in Serum or Plasma VITAMIN B6/PYRIDOXIN Lab Routine DM type 2 with diabetic peripheral neuropathy (HCC) Expected: 08/16/2024, Expires: 11/15/2024 [facility] Work Phone: Comment on above: Expected: 08/16/2024, Expires: Start: 08-16-2024 End: 08-16-2024 Patient encounter procedure 08/16/2024 1:00 PM EDT Office Visit Neurology [address] [place], [place] [id number] Khris Salinas MD [address] [place], [place] [id number] Severe neuropathy in bilateral upper and lower extremities Neurology Comment on above: Severe neuropathy in bilateral upper and lower extremities Start: 08-13-2024 End: 08-13-2024 Patient encounter procedure 08/13/2024 12:00 PM EDT Office Visit Neurology [address] [place] [address] Tone Guzman MD [address] [facility] [place], [place] [id number] Severe neuropathy in bilateral upper and lower extremities Neurology Comment on above: Severe neuropathy in bilateral upper and lower extremities Start: 06-25-2024 Hepatitis B screening Urine Albumin:Creatinine Ratio [facility] Start: 06-25-2024 Hepatitis B surface antibody level LDL Cholesterol [facility] Start: 06-23-2024 End: 09-22-2024 CREATININE BLD CREATININE BLD Lab Routine Screening for nephropathy Expected: 06/23/2024, Expires: 09/22/2024 [facility] Comment on above: Expected: 06/23/2024, Expires: Start: 06-22-2024 End: 06-22-2024 Nursing evaluation of patient and report 06/22/2024 11:00 AM EST Nurse Visit Endocrinology [address] [place], [place] [address] Norris Young, LAURITA [address] [address] Type 2 diabetes mellitus with diabetic neuropathy, [...] of insulin (HCC) Expected: 06/21/2024, Expires: 09/20/2024 [facility] Comment on above: Expected: 06/21/2024, Expires: Start: 06-21-2024 End: 09-20-2024 Microalbumin/Creatinine [Mass Ratio] in Urine ALBUMIN/CREATININE RATIO, URINE Lab Routine Type 2 diabetes mellitus with diabetic neuropathy, without long-term current use of insulin (HCC) Expected: 06/21/2024, Expires: 09/20/2024 [facility] Work Phone: Comment on above: Expected: 06/21/2024, Expires: Start: 06-20-2024 End: 09-19-2024 Hemoglobin A1c in Blood HEMOGLOBIN A1C Lab Routine Type 2 diabetes mellitus with diabetic neuropathy, without long-term current use of insulin (HCC) Expected: 06/20/2024 (Approximate), Expires: 09/19/2024 [facility] Comment on above: Expected: 06/20/2024 (Approximate), Expi res: 09/19/2024 Start: 06-14-2024 End: 06-14-2024 Patient encounter procedure 06/14/2024 11:00 AM EST Office Visit [facility] [place] [address] [place] [address] Bradford Love APRN.EXPLORATION DRILLER [address] [place], [place] [address] 3 month follow up [facility] Comment on above: 3 month follow up Start: 06-10-2024 Hemoglobin A1c measurement HbA1C [facility] Start: 05-26-2024 Annual PCP Team Chronic Disease Visit Annual PCP Team Chronic Disease Visit [facility] Start: 04-28-2024 Medicare Advantage Annual Wellness Visit Medicare Advantage Annual Wellness Visit [facility] Start: 04-03-2024 BP Controlled (<130/80) BP Controlled (<130/80) [facility] in Start: 03-12-2024 End: 03-12-2024 Patient encounter procedure 03/12/2024 3:00 PM EST Office Visit [facility] [place] [address] [place] [id number] Ruddy Cooper MD [address] [place] [address] 3 mo follow up [facility] [place] Comment on above: 3 mo follow up Start: 02-26-2024 End: 05-27-2024 25-hydroxyvitamin D3 [Mass/volume] in Serum or Plasma VITAMIN D 25 HYDROXY Lab Routine Vitamin D deficiency Expected: 02/26/2024, Expires: 05/27/2024 [facility] Comment on above: Expected: 02/26/2024, Expires: Start: 02-26-2024 End: 05-27-2024 EDGARDO BY IFA SCREEN EDGARDO BY IFA SCREEN Lab Routine Arthritis of hand Expected: 02/26/2024, Expires: 05/27/2024 [facility] Comment on above: Expected: 02/26/2024, Expires: Start: 02-26-2024 End: 05-27-2024 C reactive protein [Mass/volume] in Serum or Plasma C-REACTIVE PROTEIN Lab Routine Arthritis of hand Expected: 02/26/2024, Expires: 05/27/2024 [facility] Comment on above: Expected: 02/26/2024, Expires: Start: 02-26-2024 End: 05-27-2024 CBC W Auto Differential panel - Blood COMPLETE BLOOD COUNT AND DIFFERENTIAL Lab Routine Arthritis of hand Type 2 diabetes mellitus with diabetic neuropathy, without long-term current use of insulin (HCC) Encounter for long-term current use of medication Expected: 02/26/2024, Expires: 05/27/2024 [facility] Comment on above: Expected: 02/26/2024, Expires: Start: 02-26-2024 End: 05-27-2024 Comprehensive metabolic 2000 panel - Serum or Plasma COMPREHENSIVE METABOLIC PANEL Lab Routine Vitamin D deficiency Encounter for long-term current use of medication Expected: 02/26/2024, Expires: 05/27/2024 [facility] Comment on above: Expected: 02/26/2024, Expires: Start: 02-26-2024 End: 05-27-2024 Erythrocyte sedimentation rate SEDIMENTATION RATE, WESTERGREN Lab Routine Arthritis of hand Expected: 02/26/2024, Expires: 05/27/2024 [facility] Comment on above: Expected: 02/26/2024, Expires: Start: 02-26-2024 End: 05-27-2024 Hemoglobin A1c in Blood HEMOGLOBIN A1C Lab Routine Type 2 diabetes mellitus with diabetic neuropathy, without long-term current use of insulin (HCC) Expected: 02/26/2024, Expires: 05/27/2024 [facility] Comment on above: Expected: 02/26/2024, Expires: Start: 02-26-2024 End: 05-27-2024 Rheumatoid factor [Units/volume] in Serum or Plasma RHEUMATOID FACTOR Lab Routine Arthritis of hand Expected: 02/26/2024, Expires: 05/27/2024 [facility] Comment on above: Expected: 02/26/2024, Expires: Start: 02-26-2024 End: 02-26-2024 Patient encounter procedure 02/26/2024 12:20 PM EDT Office Visit [facility] [place] [address] [place] [address] Ruddy Cooper MD [address] [place] [address] 3 mo follow up [facility] [place] Comment on above: 3 mo follow up Start: 02-25-2024 Annual PCP Team Chronic Disease Visit Annual PCP Team Chronic Disease Visit [facility] Start: 02-25-2024 BP Controlled (<130/80) BP Controlled (<130/80) [facility] in Start: 02-25-2024 End: 02-25-2024 ambulatory [facility] Comment on above: lab 6 MO OV/LAB&ZOMETA T MARRY* Q6MO ZOMETA/LAB&OV E ARISTIDES/AUTH EXP 08/24/24* no later than 230 w/lab 6 MO OV* Start: 01-27-2024 End: 01-27-2024 ambulatory 01/27/2024 1:30 PM EDT OT/PT/Speech Visit [facility] Physical Therapy [address] [place] [address] O'Casper, Charleen, PT Gait difficulty [R26.9] Complaints of leg weakness [R29.898] [facility] Comment on above: Gait difficulty [R26.9] Complaints of le g weakness [R29.898] Start: 01-20-2024 End: 01-20-2024 ambulatory 01/20/2024 1:30 PM EDT OT/PT/Speech Visit [facility] [address] [place] [address] O'Casper, Charleen, PT Gait difficulty [R26.9] Complaints of leg weakness [R29.898] [facility] Comment on above: Gait difficulty [R26.9] Complaints of le g weakness [R29.898] Start: 01-13-2024 End: 01-13-2024 ambulatory 01/13/2024 11:15 AM EDT OT/PT/Speech Visit [facility] Physical Therapy [address] [place] [address] O'Casper, Charleen, PT Gait difficulty [R26.9] Complaints of leg weakness [R29.898] [facility] Therapy Comment on above: Gait difficulty [R26.9] Complaints of le g weakness [R29.898] Start: 01-06-2024 End: 01-06-2024 ambulatory 01/06/2024 1:30 PM EDT OT/PT/Speech Visit [facility] Therapy [address] [place] [address] O'Casper, Charleen, PT Gait difficulty [R26.9] Complaints of leg weakness [R29.898] [facility] Comment on above: Gait difficulty [R26.9] Complaints of le g weakness [R29.898] Start: 01-06-2024 End: 01-06-2024 Patient encounter procedure 01/06/2024 12:50 PM EDT Appointment Mammogram [address] [place] [address] [facility] mamm[facility] Mammogram Comment on above: [facility] mamm[facility] Start: 01-05-2024 End: 01-05-2024 Patient encounter procedure [facility] Comment on above: yearly follow up Start: 01-02-2024 End: 01-02-2024 Patient encounter procedure 01/02/2024 11:20 AM EDT Office Visit Cardiology [address] [place] [address] Hypertension [I10] Cardiology Comment on above: Hypertension [I10] Start: 12-28-2023 Covid-19 Vaccine ( season) Covid-19 Vaccine () [facility] Start: 12-28-2023 Covid-19 Vaccine ( season) Covid-19 Vaccine () [facility] Start: 12-28-2023 Influenza vaccination [facility] Start: 12-15-2023 End: 12-15-2023 ambulatory 12/15/2023 2:45 PM EDT OT/PT/Speech Visit [facility] [address] [place] [address] Charleen Rocha, PT Gait difficulty [R26.9] Complaints of leg weakness [R29.898] [facility] Comment on above: Gait difficulty [R26.9] Complaints of le g weakness [R29.898] Start: 12-10-2023 End: 12-10-2023 Patient encounter procedure 12/10/2023 2:00 PM EDT Office Visit [facility] [place] [address] [facility] [place] [address] Ruddy Cooper MD [address] [address] 3 mo follow up [facility] [place] Comment on above: 3 mo follow up Start: 12-09-2023 End: 03-09-2024 Hemoglobin A1c in Blood HEMOGLOBIN A1C Lab Routine Type 2 diabetes mellitus with diabetic neuropathy, without long-term current use of insulin (HCC) Expected: 12/09/2023 (Approximate), Expires: 03/09/2024 [facility] Comment on above: Expected: 12/09/2023 (Approximate), Expi res: 03/09/2024 Start: 11-26-2023 End: 11-26-2023 ambulatory 11/26/2023 12:00 PM EDT OT/PT/Speech Visit [facility] Physical Therapy [address] [place] [address] O'CasperCharleen sorensen, PT Gait difficulty [R26.9] Complaints of leg weakness [R29.898] [facility] Comment on above: Gait difficulty [R26.9] Complaints of le g weakness [R29.898] Start: 11-24-2023 End: 11-24-2023 ambulatory 11/24/2023 12:30 PM EDT OT/PT/Speech Visit [facility] [address] [place] [address] O'CasperCharleen, PT Gait difficulty [R26.9] Complaints of leg weakness [R29.898] [facility] Comment on above: Gait difficulty [R26.9] Complaints of le g weakness [R29.898] Start: 11-19-2023 End: 11-19-2023 ambulatory 11/19/2023 12:45 PM EDT OT/PT/Speech Visit [facility] [address] [place] [address] O'CasperCharleen, PT Gait difficulty [R26.9] Complaints of leg weakness [R29.898] [facility] Comment on above: Gait difficulty [R26.9] Complaints of le g weakness [R29.898] Start: 11-17-2023 End: 11-17-2023 ambulatory 11/17/2023 12:30 PM EDT OT/PT/Speech Visit [facility] [address] [place] [address] O'Casper, Charleen, PT Gait difficulty [R26.9] Complaints of leg weakness [R29.898] [facility] Comment on above: Gait difficulty [R26.9] Complaints of le g weakness [R29.898] Start: 11-12-2023 End: 11-12-2023 ambulatory 11/12/2023 12:45 PM EDT OT/PT/Speech Visit [facility] [address] [place] [address] O'CasperCharleen, PT Gait difficulty [R26.9] Complaints of leg weakness [R29.898] [facility] Comment on above: Gait difficulty [R26.9] Complaints of le g weakness [R29.898] Start: 11-10-2023 End: 11-10-2023 ambulatory 11/10/2023 12:30 PM EDT OT/PT/Speech Visit [facility] [address] [place] [address] KasMarissa whittington, PAPER BAG MACHINE OPERATOR [address] [place] [address] Gait difficulty [R26.9] Complaints of leg weakness [R29.898] [facility] Comment on above: Gait difficulty [R26.9] Complaints of le g weakness [R29.898] Start: 11-06-2023 End: 11-06-2023 ambulatory 11/06/2023 11:00 AM EDT OT/PT/Speech Visit [facility] [address] [place] [address] O'CasperAlizaCharleen, PT Gait difficulty [R26.9] Complaints of leg weakness [R29.898] [facility] Comment on above: Gait difficulty [R26.9] Complaints of le g weakness [R29.898] Start: 11-03-2023 End: 11-03-2023 ambulatory 11/03/2023 12:30 PM EDT OT/PT/Speech Visit [facility] [address] [address] O'Casper, Charleen, PT Gait difficulty [R26.9] Complaints of leg weakness [R29.898] [facility] Comment on above: Gait difficulty [R26.9] Complaints of le g weakness [R29.898] Start: 10-29-2023 End: 10-29-2023 ambulatory 10/29/2023 1:30 PM EDT OT/PT/Speech Visit [facility] [address] [place] [address] O'Casper, Charleen, PT Gait difficulty [R26.9] Complaints of leg weakness [R29.898] [facility] Comment on above: Gait difficulty [R26.9] Complaints of le g weakness [R29.898] Start: 10-27-2023 End: 10-27-2023 ambulatory 10/27/2023 1:15 PM EDT OT/PT/Speech Visit [facility] [address] [place] [address] O'Casper, Charleen, PT Gait difficulty [R26.9] Complaints of leg weakness [R29.898] [facility] Comment on above: Gait difficulty [R26.9] Complaints of le g weakness [R29.898] Start: 10-26-2023 Influenza vaccination Influenza Vaccine (#1) Re[facility] foster Comment on above: Postponed from 12/27/2022 (Declined at t his time) Start: 10-22-2023 End: 10-22-2023 ambulatory 10/22/2023 12:45 PM EDT OT/PT/Speech Visit [facility] [address] [place] [address] O'Casper, Charleen, PT Gait difficulty [R26.9] Complaints of leg weakness [R29.898] [facility] Comment on above: Gait difficulty [R26.9] Complaints of le g weakness [R29.898] Start: 10-20-2023 End: 10-20-2023 ambulatory 10/20/2023 3:30 PM EDT OT/PT/Speech Visit [facility] [address] [place] [address] O'Charleen Shirley, PT Gait difficulty [R26.9] Complaints of leg weakness [R29.898] [facility] Comment on above: Gait difficulty [R26.9] Complaints of le g weakness [R29.898] Start: 10-19-2023 ANNUAL PCP TEAM CHRONIC DISEASE VISIT ANNUAL PCP TEAM CHRONIC DISEASE VISIT [facility] Start: 10-19-2023 BP CONTROLLED (<130/80) BP CONTROLLED (<130/80) [facility] Start: 09-29-2023 End: 09-29-2023 ambulatory 09/29/2023 2:00 PM EDT OT/PT/Speech Visit [facility] [address] [place] [address] O'CasperCharleen sorensen, PT Gait difficulty [R26.9] [facility] Comment on above: Gait difficulty [R26.9] Start: 09-26-2023 End: 09-26-2023 Patient encounter procedure Cat Scan Comment on above: History of abdominal surgery [Z98.890] Start: 09-23-2023 Hemoglobin A1c measurement HbA1C [facility] Start: 09-23-2023 End: 09-23-2023 Patient encounter procedure Cat Scan Comment on above: History of abdominal surgery [Z98.890] Start: 09-22-2023 Hemoglobin A1c measurement HbA1C [facility] Start: 09-22-2023 Hemoglobin A1c/Hemoglobin.total in Blood HbA1C [facility] Start: 09-10-2023 End: 09-10-2023 ambulatory [facility] Comment on above: lab 6 MO OV/LAB&ZOMETA T MARRY* Q6MO ZOMETA/LAB&OV E ARISTIDES/AUTH EXP 08/24/24* Start: 06-28-2023 BP CONTROLLED (<130/80) BP CONTROLLED (<130/80) [facility] Start: 06-25-2023 End: 09-24-2023 25-hydroxyvitamin D3 [Mass/volume] in Serum or Plasma VITAMIN D 25 HYDROXY Lab Routine Vitamin D deficiency Expected: 06/25/2023 (Approximate), Expires: 09/24/2023 [facility] Work Phone: Comment on above: Expected: 06/25/2023 (Approximate), Expi res: 09/24/2023 Start: 06-25-2023 End: 09-24-2023 ALBUMIN/CREAT RATIO RND UR ALBUMIN/CREAT RATIO RND UR Lab Routine Type 2 diabetes mellitus with diabetic neuropathy, without long-term current use of insulin (HCC) Expected: 06/25/2023 (Approximate), Expires: 09/24/2023 [facility] Work Phone: Comment on above: Expected: 06/25/2023 (Approximate), Expi res: 09/24/2023 Start: 06-25-2023 End: 09-24-2023 CBC panel - Blood by Automated count CBC Lab Routine Primary hypertension Expected: 06/25/2023 (Approximate), Expires: 09/24/2023 [facility] Work Phone: Comment on above: Expected: 06/25/2023 (Approximate), Expi res: 09/24/2023 Start: 06-25-2023 End: 09-24-2023 Comprehensive metabolic 2000 panel - Serum or Plasma COMP METABOLIC PANEL Lab Routine Primary hypertension Type 2 diabetes mellitus with diabetic neuropathy, without long-term current use of insulin (HCC) Expected: 06/25/2023 (Approximate), Expires: 09/24/2023 [facility] Work Phone: Comment on above: Expected: 06/25/2023 (Approximate), Expi res: 09/24/2023 Start: 06-25-2023 End: 09-24-2023 Hemoglobin A1c in Blood HGB A1C Lab Routine Type 2 diabetes mellitus with diabetic neuropathy, without long-term current use of insulin (HCC) Expected: 06/25/2023 (Approximate), Expires: 09/24/2023 [facility] Work Phone: Comment on above: Expected: 06/25/2023 (Approximate), Expi res: 09/24/2023 Start: 06-25-2023 End: 09-24-2023 Lipid 1996 panel - Serum or Plasma LIPID PANEL BASIC Lab Routine Mixed hyperlipidemia Expected: 06/25/2023 (Approximate), Expires: 09/24/2023 [facility] Work Phone: Comment on above: Expected: 06/25/2023 (Approximate), Expi res: 09/24/2023 Start: 05-24-2023 BP CONTROLLED (<130/80) BP CONTROLLED (<130/80) [facility] Start: 05-21-2023 Hemoglobin A1c/Hemoglobin.total in Blood HBA1C [facility] Start: 04-28-2023 Advance Directive Discussion Advance Directive Discussion [facility] Start: 03-29-2023 Hepatitis B screening URINE ALBUMIN:CREATININE RATIO [facility] Start: 03-28-2023 BP CONTROLLED (<130/80) BP CONTROLLED (<130/80) [facility] Start: 03-28-2023 COVID-19 VACCINE (4 - Booster for Pfizer series) COVID-19 VACCINE (4 - Booster for Pfizer series) [facility] Comment on above: Postponed from 01/10/2022 (Declined at t his time) Start: 03-28-2023 COVID-19 VACCINE (4 - Pfizer series) COVID-19 VACCINE (4 - Pfizer series) [facility] Comment on above: Postponed from 01/10/2022 (Declined at t his time) Start: 03-28-2023 Hepatitis B surface antibody level LDL CHOLESTEROL [facility] Start: 03-28-2023 Pneumococcal Vaccine: 65+ (2 - PCV) Pneumococcal Vaccine: 65+ (2 - PCV) [facility] Comment on above: Postponed from 05/04/2015 (Declined at t his time) Start: 03-28-2023 PNEUMOCOCCAL: 65+ (2 - PCV) PNEUMOCOCCAL: 65+ (2 - PCV) [facility] Comment on above: Postponed from 05/04/2015 (Declined at t his time) Start: 02-26-2023 End: 03-31-2023 Mra head w/o & w/contrast material MRA BRAIN WO/W IVCON Radiology Routine Intracranial aneurysm Expected: 02/26/2023 (Approximate), Expires: 03/31/2023 [facility] Work Phone: Comment on above: Expected: 02/26/2023 (Approximate), Expi res: 03/31/2023 Start: 12-27-2022 Covid-19 Vaccine () Covid-19 Vaccine () [facility] Start: 12-27-2022 Influenza vaccination [facility] Start: 10-26-2022 End: 06-27-2023 25-hydroxyvitamin D3 [Mass/volume] in Serum or Plasma VITAMIN D 25 HYDROXY Lab Routine Vitamin D deficiency Expected: 10/26/2022 (Approximate), Expires: 06/27/2023 [facility] Work Phone: Comment on above: Expected: 10/26/2022 (Approximate), Expi res: 06/27/2023 Start: 10-26-2022 End: 06-27-2023 CBC W Auto Differential panel - Blood CBC + DIFF Lab Routine Type 2 diabetes mellitus with diabetic neuropathy, without long-term current use of insulin (HCC) Insomnia, unspecified type Expected: 10/26/2022 (Approximate), Expires: 06/27/2023 [facility] Work Phone: Comment on above: Expected: 10/26/2022 (Approximate), Expi res: 06/27/2023 Start: 10-26-2022 End: 06-27-2023 Comprehensive metabolic 2000 panel - Serum or Plasma COMP METABOLIC PANEL Lab Routine Type 2 diabetes mellitus with diabetic neuropathy, without long-term current use of insulin (HCC) Insomnia, unspecified type Expected: 10/26/2022 (Approximate), Expires: 06/27/2023 [facility] Work Phone: Comment on above: Expected: 10/26/2022 (Approximate), Expi res: 06/27/2023 Start: 10-26-2022 End: 06-27-2023 Hemoglobin A1c in Blood HGB A1C Lab Routine Type 2 diabetes mellitus with diabetic neuropathy, without long-term current use of insulin (HCC) Expected: 10/26/2022 (Approximate), Expires: 06/27/2023 [facility] Work Phone: Comment on above: Expected: 10/26/2022 (Approximate), Expi res: 06/27/2023 Start: 10-25-2022 Influenza vaccination INFLUENZA (#1) [facility] Comment on above: Postponed from 12/27/2021 (Declined at t his time) Start: 10-17-2022 ANNUAL PCP TEAM CHRONIC DISEASE VISIT ANNUAL PCP TEAM CHRONIC DISEASE VISIT [facility] Start: 10-17-2022 BP CONTROLLED (<130/80) BP CONTROLLED (<130/80) [facility] Start: 10-17-2022 Hepatitis B surface antibody level LDL CHOLESTEROL [facility] Start: 10-08-2022 BP CONTROLLED (<130/80) BP CONTROLLED (<130/80) [facility] Start: 09-26-2022 Hemoglobin A1c/Hemoglobin.total in Blood HBA1C [facility] Start: 06-05-2022 BP CONTROLLED (<130/80) BP CONTROLLED (<130/80) [facility] Start: 04-29-2022 SHINGRIX VACCINE (1 of 2) SHINGRIX VACCINE (1 of 2) [facility] Comment on above: Postponed from 01/16/1996 (Insurance Cov erage) Start: 04-29-2022 Urine microalbumin profile DTAP,TDAP,TD (1 - Tdap) [facility] Comment on above: Postponed from 1965 (Insurance Cov erage) Start: 04-28-2022 ADVANCE DIRECTIVE DISCUSSION ADVANCE DIRECTIVE DISCUSSION [facility] Start: 04-18-2022 Hemoglobin A1c/Hemoglobin.total in Blood HBA1C [facility] Start: 04-10-2022 End: 06-10-2022 25-hydroxyvitamin D3 [Mass/volume] in Serum or Plasma VITAMIN D 25 HYDROXY Lab Routine Vitamin D deficiency Expected: 04/10/2022 (Approximate), Expires: 06/10/2022 [facility] Work Phone: Comment on above: Expected: 04/10/2022 (Approximate), Expi res: 06/10/2022 Start: 04-10-2022 End: 06-10-2022 Hemoglobin A1c in Blood HGB A1C Lab Routine Type 2 diabetes mellitus with diabetic neuropathy, without long-term current use of insulin (HCC) Expected: 04/10/2022 (Approximate), Expires: 06/10/2022 [facility] Work Phone: Comment on above: Expected: 04/10/2022 (Approximate), Expi res: 06/10/2022 Start: 04-10-2022 End: 06-10-2022 Lipid 1996 panel - Serum or Plasma LIPID PANEL BASIC Lab Routine Mixed hyperlipidemia Expected: 04/10/2022 (Approximate), Expires: 06/10/2022 [facility] Work Phone: Comment on above: Expected: 04/10/2022 (Approximate), Expi res: 06/10/2022 Start: 04-10-2022 End: 06-10-2022 LIPID PANEL, NONFASTING LIPID PANEL, NONFASTING Lab Routine Mixed hyperlipidemia Expected: 04/10/2022 (Approximate), Expires: 06/10/2022 [facility] Work Phone: Comment on above: Expected: 04/10/2022 (Approximate), Expi res: 06/10/2022 Start: 03-29-2022 ANNUAL PCP TEAM CHRONIC DISEASE VISIT ANNUAL PCP TEAM CHRONIC DISEASE VISIT [facility] Start: 03-28-2022 End: 05-28-2022 25-hydroxyvitamin D3 [Mass/volume] in Serum or Plasma [facility] Work Phone: Comment on above: Expected: 03/28/2022, Expires: 3 Start: 03-28-2022 End: 05-28-2022 ALBUMIN/CREAT RATIO RND UR ALBUMIN/CREAT RATIO RND UR Lab Routine Type 2 diabetes mellitus with diabetic neuropathy, without long-term current use of insulin (HCC) Expected: 03/28/2022, Expires: 05/28/2022 [facility] Work Phone: Comment on above: Expected: 03/28/2022, Expires: 3 Start: 03-28-2022 End: 05-28-2022 CBC W Auto Differential panel - Blood [facility] Work Phone: Comment on above: Expected: 03/28/2022, Expires: 3 Start: 03-28-2022 End: 05-28-2022 Comprehensive metabolic 2000 panel - Serum or Plasma [facility] Work Phone: Comment on above: Expected: 03/28/2022, Expires: 3 Start: 03-28-2022 End: 05-28-2022 Hemoglobin A1c in Blood [facility] Work Phone: Comment on above: Expected: 03/28/2022, Expires: 3 Start: 03-28-2022 End: 05-28-2022 LIPID PANEL, NONFASTING [facility] Work Phone: Comment on above: Expected: 03/28/2022, Expires: 3 Start: 03-18-2022 COVID-19 VACCINE (4 - Booster for Pfizer series) COVID-19 VACCINE (4 - Booster for Pfizer series) [facility] Start: 02-15-2022 COVID-19 VACCINE (4 - Booster for Pfizer series) COVID-19 VACCINE (4 - Booster for Pfizer series) [facility] Start: 02-07-2022 COVID-19 VACCINE (4 - Booster for Pfizer series) COVID-19 VACCINE (4 - Booster for Pfizer series) [facility] Start: 01-25-2022 Hepatitis B screening URINE ALBUMIN:CREATININE RATIO [facility] Start: 01-17-2022 End: 03-19-2022 Basic metabolic 2000 panel - Serum or Plasma BASIC METABOLIC PNL Lab Routine Cerebral aneurysm Expected: 01/17/2022 (Approximate), Expires: 03/19/2022 [facility] Work Phone: Comment on above: Expected: 01/17/2022 (Approximate), Expi res: 03/19/2022 Start: 01-17-2022 End: 03-19-2022 CBC panel - Blood by Automated count CBC Lab Routine Cerebral aneurysm Expected: 01/17/2022 (Approximate), Expires: 03/19/2022 [facility] Work Phone: Comment on above: Expected: 01/17/2022 (Approximate), Expi res: 03/19/2022 Start: 01-10-2022 COVID-19 VACCINE (4 - Booster for Pfizer series) COVID-19 VACCINE (4 - Booster for Pfizer series) [facility] Start: 12-27-2021 Influenza vaccination INFLUENZA (#1) [facility] Start: 08-30-2021 Bacteria identified in Urine by Culture Urine Culture [facility] Work Phone: Start: 07-08-2021 Hemoglobin A1c/Hemoglobin.total in Blood HBA1C [facility] Start: 04-28-2021 ADVANCE DIRECTIVE DISCUSSION ADVANCE DIRECTIVE DISCUSSION [facility] Start: 04-06-2021 COVID-19 VACCINE (3 - Pfizer risk series) COVID-19 VACCINE (3 - Pfizer risk series) [facility] Start: 2021 RSV Vaccine (1 - 1-dose 75+ series) RSV Vaccine (1 - 1-dose 75+ series) [facility] Start: 08-18-2020 Colonoscopy COLONOSCOPY [facility] Start: 08-18-2020 COLORECTAL CANCER SCREENING COLORECTAL CANCER SCREENING [facility] Start: 08-13-2020 Colonoscopy COLONOSCOPY [facility] Start: 08-13-2020 COLORECTAL CANCER SCREENING COLORECTAL CANCER SCREENING [facility] Start: 11-12-2019 ANNUAL PCP TEAM CHRONIC DISEASE VISIT ANNUAL PCP TEAM CHRONIC DISEASE VISIT [facility] Start: 11-06-2019 Hepatitis B surface antibody level LDL CHOLESTEROL [facility] Start: 05-07-2018 FECAL OCCULT BLOOD FECAL OCCULT BLOOD [facility] Start: 05-04-2015 Pneumococcal Vaccine: 50+ (2 of 2 - PCV) Pneumococcal Vaccine: 50+ (2 of 2 - PCV) [facility] Start: 05-04-2015 Pneumococcal Vaccine: 65+ (2 - PCV) Pneumococcal Vaccine: 65+ (2 - PCV) [facility] Start: 05-04-2015 Pneumococcal Vaccine: 65+ (2 of 2 - PCV) Pneumococcal Vaccine: 65+ (2 of 2 - PCV) [facility] Start: 05-04-2015 PNEUMOCOCCAL: 65+ (2 - PCV) PNEUMOCOCCAL: 65+ (2 - PCV) [facility] Start: 2006 Hepatitis B Vaccine (1 of 3 - Risk 3-dose series) Hepatitis B Vaccine (1 of 3 - Risk 3-dose series) [facility] Start: 2006 RSV Vaccine (1 - 1-dose 60+ series) RSV Vaccine (1 - 1-dose 60+ series) [facility] Start: 01-16-1996 SHINGRIX VACCINE (1 of 2) SHINGRIX VACCINE (1 of 2) [facility] Start: 1991 COLOGUARD (FIT-DNA) COLOGUARD (FIT-DNA) [facility] Start: [address] COLONOGRAPHY [facility] Start: 1991 SIGMOIDOSCOPY SIGMOIDOSCOPY [facility] Start: 1965 SHINGRIX VACCINE (1 of 2) SHINGRIX VACCINE (1 of 2) [facility] Start: 1965 Urine microalbumin profile [facility] Start: 01-16-1964 BP CONTROLLED (<130/80) BP CONTROLLED (<130/80) [facility] in Start: 01-16-1956 3 comp foot exam completed DIABETIC FOOT EXAM [facility] Start: 01-16-1956 Diabetic foot examination Diabetic Foot Exam [facility] Start: 01-16-1956 Glaucoma screening Dilated Retinal Exam [facility] Start: 01-16-1956 Hepatitis C antibody, confirmatory test DILATED RETINAL EXAM [facility] Amphetamines [Presen ce] in Urine by Screen method >1000 ng/mL [facility] Bacteria identified in Urine by Culture BACTERIAL CULTURE, URINE Microbiology Routine Acute UTI Ordered: 08/09/2024 [facility] Work Phone: Comment on above: Ordered: 08/09/2024 Benzodiazepine measurement, urine [facility] Cocaine measurement, urine [facility] End: 10-07-2024 CT Abdomen and Pelvis WO contrast CT ABD/PEL WO IVCON Radiology Routine History of abdominal surgery Abdominal pain, chronic, generalized 1 Occurrences starting 09/08/2023 until 10/07/2024 [facility] Comment on above: 1 Occurrences starting 09/08/2023 until 10/07/2024 CT Abdomen and Pelvi s WO contrast CT ABD/PEL WO IVCON Radiology Routine History of abdominal surgery Abdominal pain, chronic, generalized 09/26/2023 11:51 AM EDT [facility] Work Phone: End: 07-23-2025 CTA Head Arteries W contrast IV CTA HEAD W IVCON Radiology Routine Nonruptured cerebral aneurysm 1 Occurrences starting 06/23/2024 until 07/23/2025 [facility] Work Phone: Comment on above: 1 Occurrences starting 06/23/2024 until 07/23/2025 End: 01-30-2025 DBT Breast - bilateral screening WILLIE SCREENING W AVNI Radiology Routine Screening mammogram for breast cancer 1 Occurrences starting 01/01/2024 until 01/30/2025 [facility] Work Phone: Comment on above: 1 Occurrences starting 01/01/2024 until 01/30/2025 End: 07-21-2025 DBT Breast - bilateral screening WILLIE SCREENING W AVNI Radiology Routine Encounter for screening mammogram for breast cancer 1 Occurrences starting 06/21/2024 until 07/21/2025 [facility] Comment on above: 1 Occurrences starting 06/21/2024 until 07/21/2025 End: 12-18-2024 Echocardiography ECHO Cardiology Routine Hypertension Syncope, unspecified syncope type 1 Occurrences starting 12/19/2023 until 12/18/2024 [facility] Work Phone: Comment on above: 1 Occurrences starting 12/19/2023 until 12/18/2024 fentaNYL [Presence] in Urine by Screen method [facility] IMMUNOFIXATION SCREE N, SERUM IMMUNOFIXATION SCREEN, SERUM Lab Routine DM type 2 with diabetic peripheral neuropathy (HCC) 08/17/2024 11:41 AM EDT [facility] IR CEREBRAL ARCH & T HREE VESSEL IR CEREBRAL ARCH & THREE VESSEL Radiology Routine Cerebral aneurysm Ordered: 12/03/2021 [facility] Work Phone: Comment on above: Ordered: 12/03/2021 End: 01-23-2024 WILLIE DIAGNOSTIC BILATERAL WILLIE DIAGNOSTIC BILATERAL Radiology Routine Bilateral fibrocystic breast changes Personal history of breast cancer S/P bilateral breast lumpectomy Mass of lower outer quadrant of right breast 1 Occurrences starting 12/24/2022 until 01/23/2024 [facility] Work Phone: Comment on above: 1 Occurrences starting 12/24/2022 until 01/23/2024 End: 01-22-2024 WILLIE SCREENING WILLIE SCREENING Radiology Routine Screening breast examination 1 Occurrences starting 12/23/2022 until 01/22/2024 [facility] Work Phone: Comment on above: 1 Occurrences starting 12/23/2022 until 01/22/2024 Methadone measuremen t, urine [facility] Methylmalonate [Moles/volume] in Serum or Plasma METHYLMALONIC ACID Lab Routine DM type 2 with diabetic peripheral neuropathy (HCC) 08/17/2024 11:41 AM EDT [facility] Patient Education [facility] Work Phone: Patient referral [facility] Work Phone: PFIZER-BIONTECH COVI D-19 VACCINE ( SEASON) AGE 12+ YR PFIZER-BIONTECH COVID-19 VACCINE ( SEASON) AGE 12+ YR Immunization/Injection Routine Encounter for immunization 1 Occurrences starting 09/08/2023 [facility] Comment on above: 1 Occurrences starting 09/08/2023 Phencyclidine [Prese nce] in Urine [facility] Pneumococcal vaccination PNEUMOC OCCAL VACCINE, 20 VALENT (PREVNAR 20) Immunization/Injection Routine Encounter for immunization 1 Occurrences starting 09/08/2023 [facility] Work Phone: Comment on above: 1 Occurrences starting 09/08/2023 Pyridoxine [Mass/vol ume] in Serum or Plasma VITAMIN B6/PYRIDOXIN Lab Routine DM type 2 with diabetic peripheral neuropathy (HCC) 08/17/2024 11:41 AM EDT [facility] Tdap vaccine 7 yrs/> im TDAP VAC CINE, AGE 7+ YR (ADACEL, BOOSTRIX) Immunization/Injection Routine Encounter for immunization 1 Occurrences starting 10/18/2022 [facility] Work Phone: Comment on above: 1 Occurrences starting 10/18/2022 Troponin T.cardiac [Mass/volume] in Serum or Plasma by High sensitivity method [facility] UA DIP, URINE (POC) UA DIP, URIN E (POC) Lab Routine Dementia with other behavioral disturbance, unspecified dementia severity, unspecified dementia type (HCC) Ordered: 09/07/2024 [facility] Work Phone: Comment on above: Ordered: 09/07/2024 Urine cannabinoid measurement [facility] Urine culture [facility] Urine opiate measurement [facility] End: 01-23-2024 US BREAST LTD RIGHT US BREAST LTD RIGHT Radiology Routine Bilateral fibrocystic breast changes Personal history of breast cancer S/P bilateral breast lumpectomy Mass of lower outer quadrant of right breast 1 Occurrences starting 12/24/2022 until 01/23/2024 [facility] Work Phone: Comment on above: 1 Occurrences starting 12/24/2022 until 01/23/2024 End: 03-27-2025 XR Hand - bilateral PA and Lateral and Oblique XR HAND GENERAL 3V PA/LAT/OBL BILATERAL Radiology Routine Arthritis of hand 1 Occurrences starting 02/26/2024 until 03/27/2025 [facility] Work Phone: Comment on above: 1 Occurrences starting 02/26/2024 until 03/27/2025 XR Hand - bilateral PA and Lateral and Oblique XR HAND GENERAL 3V PA/LAT/OBL BILATERAL Radiology Routine Arthritis of hand 02/26/2024 1:51 PM EDT [facility] Immunizations Immunization Date Immunization Notes Care Provider [facility] 11-15-2021 COVID-19 original vaccine, age 12+ yr, monovalent ([employer] - BALDERAS TOP) Ruddy Cooper MD Work Phone: [facility] 03-09-2021 COVID-19 vaccine, ag e 12+ yr ([employer] - PURPLE TOP) Candelario Douglas MD Work Phone: [facility] Work Phone: 02-13-2021 Covid (Pfizer) [facility] 01-30-2021 influenza, high-dose , quadrivalent vaccine (FLUZONE HIGH DOSE QUADRIVALENT) Candelario Douglas MD Work Phone: [facility] Work Phone: 01-30-2021 influenza virus vacc ine, unspecified formulation Ruddy Cooper MD Work Phone: [facility] 01-13-2019 influenza, high dose seasonal, preservative-free Candelario Douglas MD Work Phone: [facility] Work Phone: 02-12-2018 Seasonal trivalent influenza vaccine, adjuvanted, preservative free Candelario Douglas MD Work Phone: [facility] Work Phone: 05-04-2014 pneumococcal polysaccharide vaccine, 23 valent Ruddy Cooper MD Work Phone: [facility] Work Phone: 02-04-2014 influenza, seasonal, injectable, preservative free Candelario Douglas MD Work Phone: [facility] Work Phone: Payers Date Payer Category Payer Self-pay [id number] 2019 Medicare [employer] MEDICARE HU[employer] MEDICARE PPO [id number] 2019-Present [phone] [place] [address] PPO [id number] 2019 Medicare HU[employer]NA MEDICARE HU[employer] MEDICARE PPO [id number] 2019-Present [phone] [place] [address] PPO [id number] 2019 Medicare (Managed Care) MORIAH PEREYRA [id number] 2019 Medicare [id number] Unknown [id number] Unknown [id number] Unknown [id number] Unknown [id number] Unknown [id number] Unknown [id number] Unknown [id number] Unknown [id number] Unknown [id number] [id number] Unknown [id number] [id number] Unknown [id number] [id number] Unknown [id number] [id number] Unknown [id number] [id number] Social History Date Type Detail Facility Start: 11-04-2013 End: 03-28-2022 Tobacco smoking status NHIS Never smoked tobacco [facility] Start: 06-11-2021 End: 09-14-2024 Alcohol intake Current non-drinker of alcohol (finding) [facility] Start: 1945 Sex Assigned At Not on file [facility] Start: 04-06-2020 End: 03-28-2022 Exposure to SARS-CoV-2 (event) Not sure [facility] Start: 08-29-2021 Tobacco smoking stat us NHIS Unknown if ever smoked [facility] Work Phone: Start: 05-27-2018 None [facility] Start: 05-27-2018 Alone [facility] Start: 05-14-2019 Non-smoker [facility] Start: 1945 Sex Assigned At Female [facility] Start: 11-04-2013 End: 03-28-2022 Tobacco use and exposure Smokeless tobacco non-user [facility] Start: 10-03-2022 End: 10-18-2022 History of Social function [facility] Start: 10-03-2022 End: 10-18-2022 Tobacco use panel [facility] Adult Depression Screening Assessment 0 [facility] Has the [email or web address], [employer], [employer], or [employer] threatened to shut off services in your home in past 12Mo No [facility] Medical Equipment Procedure Code Equipment Code [...] Locking Sc FDA Start: 05-29-2018 ORIF, ankle 10mm Variable [...] Locking Sc FDA Start: 05-29-2018 ORIF, ankle 10mm Variable [...] Locking Sc FDA Start: 05-29-2018 ORIF, ankle 10mm Variable [...] ESWL STENT,URETERAL PIGTAIL 6FRx26 FDA Start: 08-31-2021 Lithotripsy, ESWL STENT,URETERAL PIGTAIL 6FRx26 FDA Start: 08-31-2021 Lithotripsy, ESWL STENT,URETERAL PIGTAIL 6FRx26 FDA Start: 08-31-2021 Lithotripsy, ESWL STENT,URETERAL PIGTAIL 6FRx26 FDA Start: 08-31-2021 Web Sl 9mm X 4mm [id number] Start: 01-22-2021 Insert Triathlon 3 11mm Tibial Bearing Cruciate Retain Sterile Knee [id number] Start: 08-07-2020 Component Tritan ium 29mm Metal 9mm Patellar Asymmetric Knee - [id number] Start: 08-07-2020 Component Triath cedric 2 Pa Femoral Cruciate Retain Bead Knee Right - [id number] Start: 08-07-2020 Baseplate Triath fatimah 3 Tritanium 44mm 67mm Tibial Sterile Latex Free - [id number] Start: 08-07-2020 BRAIN ANEURYSM C OILS [...] /State Functional Status Date Assessment Result Facility 10-12-2024 Functional status Ambulates [facility] Work Phone: 08-30-2024 Functional status Chair [facility] Work Phone: 08-31-2021 Functional status Ambulates;Bath room Privilege [facility] Work Phone: 02-02-2021 Are you deaf, or do you have serious difficulty hearing No 02/02/2021 11:09 AM Corinne La, LAURITA No [facility] 02-02-2021 Are you blind, or do you have serious difficulty seeing, even when wearing glasses No 02/02/2021 11:09 AM Corinne La, LAURITA No [facility] 02-02-2021 Do you have serious difficulty walking or climbing stairs Yes 02/02/2021 11:09 AM Corinne La, LAURITA Yes [facility] 02-02-2021 Do you have difficul ty dressing or bathing Yes 02/02/2021 11:09 AM Corinne La, LAURITA Yes [facility] 02-02-2021 Because of a physica l, mental, or emotional condition, do you have difficulty doing errands alone such as visiting a physician's office or shopping Yes 02/02/2021 11:09 AM Corinne La, LAURITA Yes [facility] Mental Status Date Assessment Result Facility 10-12-2024 Cognitive function Voice/Name [facility] Work Phone: 10-10-2024 Cognitive function Voice/Name [facility] Work Phone: 09-08-2024 Cognitive function Voice/Name [facility] Work Phone: 08-30-2024 Cognitive function Voice/Name [facility] Work Phone: 08-31-2021 Cognitive function Voice/Name [facility] Work Phone: 02-02-2021 Because of a physica l, mental, or emotional condition, do you have serious difficulty concentrating, remembering, or making decisions Yes 02/02/2021 11:09 AM Corinne La, LAURITA Yes [facility] Clinical Notes 05-06-2020 to 10-19-2024 Dea Dietz LSW - 10/19/2024 11:57 AM EDTTelephone Encounter - Brigette CasanovaJOSELIN - 10/19/2024 9:32 AM EDTTelephone Encounter - Brigette CasanovaJOSELIN - 10/19/2024 9:32 AM EDT Note Date & Type Note Facility 10-19-2024 History and physi isha note [facility] 10-19-2024 Radiology Diagnostic study note [facility] Imaging Services [address] [place] [address] Brain/Head without Contrast MR#: [id number] Acct: [id number] Name: JUDI KRAUSE Rep #: [id number] : 1945 F 79 From: Vladimir Huston MD PCP: Dr. Ruddy Cooper MD Status: RE G ER Study:Brain/Head without Contrast Date of Exa m: 10/19/24 Exam# [id number] Ordering Dr: Mikel Bonilla DO PROCEDURE: BRAIN/HEAD WITHOUT CONTRAST 10/19/2024 REASON FOR EXAM: CONFUSION TECHNIQUE: BRAIN/HEAD WITHOUT CONTRAST Coronal and Sagittal reconstruction series were provided. One or more dose reduction techniques were used (e.g., Automated exposure control, adjustment of the mA and/or kV according to patient size, use of iterative reconstruction technique. RADIATION DOSE SUMMARY: CTDlvol: 47.06 mGy DLP: 925.62 mGycm COMPARISON: Prior study dated October 10, 2024. FINDINGS: Brain: Low density in the periventricular white matter suggests mild chronic small vessel ischemic changes. CSF Spaces: Mild generalized cerebral atrophy status post aneurysmal clipping inthe region of the left nbqjee-[id number] in the left temporal lobe with evidence of encephalomalacia. Ipsilateral dilatation ofthe left frontal horn in keeping with atrophy. This is unchanged. Sinuses/Mastoids: Minimal mucosal thickening of the right maxillary sinus. Bones: Prior left craniotomy. CT/Brain/Head without Contrast IMPRESSION: NO SIGNIFICANT CHANGE SINCE THE PRIOR EXAM no acute abnormality is seen. Reading Location: [id number] CC: Dr. Ruddy Cooper MD; Dr. Mikel Bonilla DO ~ Showroom Salesperson: Signed [facility] 10-19-2024 Radiology Diagnostic study note [facility] Imaging Services [address] [place], [place] [address] Chest PA and Lateral MR#: [id number] Acct: [id number] Name: JUDI KRAUSE Rep #: [id number] : 1945 F 79 From: Vladimir Huston MD PCP: Dr. Ruddy Cooper MD Status: RE G ER Study:Chest PA and Lateral Date of Exam: 10/19/24 Exam# [id number] Ordering Dr: Mikel Bonilla DO PROCEDURE: CHEST PA AND LATERAL 10/19/2024 REASON FOR EXAM: WEAKNESS TECHNIQUE: CHEST PA AND LATERAL COMPARISON: Prior study dated October 10, 2024. FINDINGS: Hardware: EKG electrodes are seen. Heart: The heart is nonenlarged. Mediastinum: The mediastinal contour is unremarkable. Lungs: Calcified right pleural plaques. Stable examination. Bones: Degenerative changes are identified within the thoracic spine. RAD/Chest PA and Lateral IMPRESSION: No acute abnormality is seen. Calcified right-sided pleural plaques. Reading Location: [facility] CC: Dr. Ruddy Cooper MD; Dr. Mikel Bonilla DO ~ Showroom Salesperson: Signed [facility] 10-19-2024 History of Present illness Narrative Value Based Social Work Progress Note Provider Action / FYI PCP Action none Date of Service: 10/19/2024 Patient identified by name/: No and unable to reach daughter Message left for patient's daughter Referral Source: Referral Patient Outreach: Initial Mode of Outreach: Phone Call Response Time: Unable to reach (2nd Attempt) Left message by: Voicemail THEA Meier October 19, 2024 11:58 AM documented in this encounter [facility] 10-19-2024 Telephone encounter Note See phone note Brigette Merillat, MA [facility] 10-19-2024 Miscellaneous Notes See phone note Brigette Casanova MA documented in this encounter [facility] 10-18-2024 Telephone encounter Note Attmpted to reach patient via phone and My chart to discuss food insecurity. Will continue attempts to reach THEA Meier [facility] 10-18-2024 Miscellaneous Notes Attmpted to reach patient via phone and My chart to discuss food insecurity. Will continue attempts to reach THEA Meier documented in this encounter [facility] 10-18-2024 History of Present illness Narrative Value Based Social Work Progress Note Provider Action / FYI PCP Action none Date of Service: 10/18/2024 Patient identified by name/: Yes- via Telephone Referral Source: Pursue ([facility]) Referral Patient Outreach: Initial Mode of Outreach: Phone Call Response Time: Unable to reach (2nd Attempt) Left message by: unable to leave VM, Messages are full. Will attempt to reach via [email or web address] and call again tomorrow. THEA Meier October 18, 2024 11:29 AM documented in this encounter [facility] 10-15-2024 Telephone encounter Note Noted, OK [facility] 10-15-2024 Miscellaneous Notes Noted, OK To calling from [facility] to report plan of care for patient and longterm will visit patient 2 times a week for 2 weeks and 1 time a week for 1 week. Patient was put on Seroquel 25 mg daily at bedtime while in hospital in August. Patient also still has Alprazolam 0.25 mg as needed at bedtime that was prescribed by Bradford burnett while back in home. Please review and Advise, Angélica Parkinson RN documented in this encounter [facility] 10-15-2024 Telephone encounter Note No answer. Left providers message and ask to call with any questions or concerns [facility] 10-15-2024 Miscellaneous Notes No answer. 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 Dx of UTI. Shelly asking if provider will approve and follow patient for orders? Call Shelly at [phone] Christa Sandoval, RN documented in this encounter [facility] 10-14-2024 Telephone encounter Note OK [facility] 10-14-2024 Telephone encounter Note To calling from [facility] to report plan of care for patient and longterm will visit patient 2 times a week for 2 weeks and 1 time a week for 1 week. Patient was put on Seroquel 25 mg daily at bedtime while in hospital in August. Patient also still has Alprazolam 0.25 mg as needed at bedtime that was prescribed by Bradford burnett while back in home. Please review and Advise, Angélica Parkinson RN [facility] 10-14-2024 History of Present illness Narrative Value Based Social Work Progress Note Provider Action / FYI PCP Action none Date of Service: 10/14/2024 Patient identified by name/: Yes- via Telephone Referral Source: Pursue ([facility]) Referral Patient Outreach: Initial Mode of Outreach: Phone Call Response Time: Contact made Patient Needs: Food Insecurity-Resource eligibility limitations Community Resources Assessment: Payor Social supports Existing community support Action Taken: Action deferred, Home care nurse arrived at the home during our conversation. Arranged to speak tomorrow instead to continue the assessment Is Patient ready for discharge? No Follow-up Plan [next steps] Medium [15-30 days] Narrative: Referral received to assist this patient. Chart reviewed, patient/family called , identity confirmed by way of name and date of . Patient/family advised he/she is on a recorded line. Patient/family advised as to the nature of this call. Spoke directly with patient who reports she has enough food, but would like to know more about getting more every month. Minutes into the call, a home health nurse arrived at her home. Patient requested a call at a later time. Suggested I will reach out to patient tomorrow instead. Interventions: Advocacy Assessment No interventions at this time/ assessment deferred. 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 Dx of UTI. Shelly asking if provider will approve and follow patient for orders? Call Shelly at [phone] Christa Sandoval RN [facility] 10-13-2024 History of Present illness Narrative Transition Care Management (TCM) Initial Outreach Received call from pt dtr Sade Called Sade back to explain purpose of TCM outreach. Sade manages pt's appts Confirmed HHC coming today and that medications were given to pt at discharge but pt cannot find. Provided Sade w/ H@H number as well Encouraged use of triage line/return to ER for new/worsening symptoms documented in this encounter [facility] 10-13-2024 History of Present illness Narrative Value Based Care Management Inbound Call Provider Action / FYI: PCC - Please call patient's daughter Sade back. Patient was confused by call earlier and daughter would like call back to review discharge. Call Sade at [phone]. Thank you! Date of Call: 10/13/2024 Time of Call: 2:16 PM Caller Name: Sade Caller relationship to the patient: Family / Caregiver daughter Patient identified by Name and Date of : Yes Reason for Call / Main Concern Sade, patient's daughter, calling to go over hospital discharge with PCC. Patient confused with call and Sade would like to make sure everything is reviewed. Summary of Callers Concern See above. Action Taken / Plan Routed to Patient's Checking Department Supervisor Nyla Hobbs, RN October 13, 2024 2:16 PM documented in this encounter [facility] 10-13-2024 Telephone encounter Note Daughter returning a call for Mireya Thomas RN. Patient not present on phone, RN conferenced to Nyla career and technology education teacher to take message for Mireya. [facility] 10-13-2024 Miscellaneous Notes Daughter returning a call for Mireya Thomas RN. Patient not present on phone, RN conferenced to Nyla career and technology education teacher to take message for Mireya. documented in this encounter [facility] 10-13-2024 History of Present illness Narrative Transition Care Management (TCM) Initial Outreach Social Work Update / Actionable Items Pt interested in learning about food resources. Thank you, Haritha [facility] TCM Home Visit Referral Source of Stratification: [facility] Hospital Admission Status: Discharged Readmission Risk Score: N/A, OON Patient meets program referral criteria: No Patient does not qualify for High Risk TCM Home Visit program due to: Readmission Risk Score does not meet criteria Disposition: Patient does not qualify for HRTIC, will provide TCM outreach follow-up for 30-days Patient Source: [place] (OON) Discharge Outreach Summary: Doing pretty good, until this morning Woke up late, threw up twice this morning Believes she was nauseated in the hospital 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 Same Medications: Do you have any questions about taking your medications, including which medications you should be on, or do you need refills on your medications? No Medication Review: Declined at this time Discharge Instructions: Your Discharge Instructions / After Visit Summary (AVS) are important in guiding you through the recovery process. Do you have any questions related to your discharge instructions? No Home Care: Were you discharged with home care? No Equipment: Do you have all the necessary equipment and supplies needed at your home? Yes The patient verbalizes understanding the use of the equipment and supplies Has a walker Social: Your mental health is as important to us as your physical health. Would you mind answering a few questions on this topic? Yes On the Storyboard review: Food Insecurity, Transportation, Depression, Housing, and Financial Strain: Complete any SDOHs, listed above, if not addressed in the past 3 months. If all SDOHs, listed above, have been addressed within the last 3 months, confirm responses and update any SDOHs that have changed. Action Taken: Yes The patient would like to speak to a PCSW- Informed patient a PCSW will contact them to discuss further. Complete PCSW/BHSW box, confirmed value-based contract and routed to appropriate pool: Medicare ACM Social Work Pool [[id number]] - Moriah SOTO MA Follow-Up Appointment: [Appointment / TCM Follow-up within 14 days] I would like to help you schedule a hospital follow-up virtual or telephone visit with your PCP. This is a great way for you to connect with your provider to ensure you have safely transitioned home. If you are agreeable, I will send your request to a outpatient scheduler who will contact and assist you with that appointment. This will give you an opportunity to ask any questions or address any concerns you may have with your PCP. Inform the patient that if they have any questions or concerns prior to that appointment, to call their PCP's office right away. Appointment Action: No action required; patient already has appointment scheduled. Education details: Patient and family educated on issues/questions related to reason for admission, transition of care topics, and follow-up needed upon discharge. Mireya Thomas RN October 13, 2024 1:54 PM documented in this encounter [facility] 10-12-2024 Discharge summary Note Date/Time October 12, 2024 2:08pm [facility] Medical Records Department [address] [place] [address] Discharge Summary 10/12/24 1359 MR#: [id number] Acct: [id number] Name: JUDI KRAUSE Rep #:[id number] : 1945 79 From: Luis newton MD PCP: Dr. Ruddy Cooper MD Status:AD M IN [place] [id number] Providers Date of Admission: 10/10/24 Primary Care Physician: Dr. Ruddy Cooper MD Reason For Visit: AMS WITH UTI Diagnosis Discharge Diagnosis (1) Urinary tract infection: Status: Acute Code(s): N39.0 - Urinary tract infection, site not specified Medications at Discharge Home Medications aspirin 81 mg tablet 81 mg PO DAILY heart health 02/02/21 letrozole 2.5 mg tablet 2.5 mg PO DAILY 08/25/24 metformin 500 mg tablet 500 mg PO DAILY diabetes mellitus 08/25/24 nortriptyline 50 mg capsule 150 mg PO QHS 08/25/24 meclizine 25 mg chewable tablet (Antivert) 25 mg PO TID PRN dizziness #10 tabs 09/09/24 losartan 25 mg tablet 25 mg PO DAILY 10/10/24 cefdinir 300 mg capsule 300 mg PO BID #6 caps 10/12/24 Hospital Course Operations None Procedures None Summary of Care Provided Minutes Spent on Discharge: 34 Hospital Course: Per HPI: JUDI KRAUSE, is a 79 F who presents to the hospital with confusion. Her daughter called the ambulance because she was talking to her on the phone and felt she was giving inappropriate responses and seemed confused. She statesthat she spoke to her daughter yesterday not today. She is not a great historian because she thinks is 1924 and she cannot give the duration of her symptoms however she says that she has been feeling off for a little bit and in the ER was found to have normal vital signs and fairly normal lab work, her lactic acid was elevated 2.6 but she does not have a leukocytosis, and she remains afebrile, brain CT and chest x-ray are unremarkable. Urine analysis demonstrates positive nitrites with leukocyte esterase of 104+ urine bacteria. Her previous culture in July grew a pansensitive Proteus and she was given a dose of Rocephin in the emergency room. Hospital Course: 1. Metabolic encephalopathy secondary to UTI in the presence of previous psychiatric illness and possible dementia?79-year-old female presents from home with confusion and altered mental status. She was on the phone with her daughter and she was nonsensical. This has been a chronic problem though it is unclear what steps been taken on the outpatient side to get her help for possible placement. Initially on admission she was confused, she thought it [id number] but she knew who she was and where she was. Today she is much more alert with me and more appropriately interactive and is ANO x 3. Crisis was consultedfor an evaluation however further workup will need to be deferred to the outpatient setting. Best case scenario would be for her to live with family however she has a pansensitive E. coli UTI that has been treated appropriately with Rocephin and she will continue with cefdinir for 3 more days to complete treatment. Plan will be for discharge home with outpatient follow-up with her PCP in 3 to 5 days. 2. Essential hypertension, type 2 diabetes, history of breast cancer on hormonal therapy all chronic medical conditions which complicate her care. Her home medications were continued where appropriate Physical Exam Narrative General: Alert, Oriented x3, Cooperative, No apparent distress HEENT: Atraumatic, PERRLA, EOMI, Normocephalic Oral: Moist Mucosa Neck: Supple, No JVD Lungs: Diminished, Normal air movement, No rhonchi, No wheeze, No rales Cardiovascular: Regular rate, Regular Rhythm, Normal S1, Normal S2, No murmurs Abdomen: Soft, Non Tender, Non-Distended, No Hepato-splenomegaly Extremities: Nonpitting edema, Capillary Refill Less than 3 Seconds Skin: No rashes, No breakdown Musculoskeletal: No Tenderness to Palpation of Joints or Extremities Neurological: No focal neurological deficits, moves all extremities, sensation intact Psych/Mental Status: Normal Affect, Appropriate Weight / BMI Weight Weight: 144 lb 13.499 oz Body Mass Index (BMI) 25.6 ABG / Lab / Microbiology Data 10/11/24 06:41 10/11/24 06:41 Laboratory: Laboratory Results - last 24 hr 10/11/24 16:23: POC Glucose 100 10/11/24 22:49: POC Glucose 158 H 10/12/24 06:17: POC Glucose 115 H 10/12/24 11:27: POC Glucose 128 H Microbiology: Microbiology 10/10/24 15:30 Urine, Clean Catch Urine Culture - Final Escherichia coli 10/10/24 15:20 Mucosa - Nose SARS-CoV-2, Influenza & RSV (PCR) - Final D/C Instructions Discharge Diet: No restrictions Call your doctor if you observe: Fever of 101 or Higher, Shortness of breath, Dizziness, Fainting spells, Swelling in the ankles, Chest pain and Increased palpitations (irregular heartbeat) DC O2, CPAP, BIPAP Needs Home O2 [...] Simvastatin 80mg Discharge Plan Admission Admit Date/Time: 10/10/24 16:33 Attending Provider: Luis Baer Primary Care Provider: Ruddy Cooper Discharge Orders/Prescriptions Prescriptions: New cefdinir 300 mg capsule 300 mg PO BID Qty: 6 0RF Continued aspirin 81 mg Tablet 81 mg PO DAILY metformin 500 mg tablet 500 mg PO DAILY letrozole 2.5 mg tablet 2.5 mg PO DAILY nortriptyline 50 mg capsule 150 mg PO QHS meclizine [Antivert] 25 mg tablet,chewable 25 mg PO TID PRN (Reason: dizziness) Qty: 10 0RF Patient Comments: Per daughter, takes as needed. Rx Instructions: Use if having dizziness. losartan 25 mg tablet 25 mg PO DAILY Referrals / Follow Up: Ruddy Cooper MD [Primary Care Provider] - 10/18/24 11:40 am (THIS APPOINTMENT WILL BE WITH [facility] ) Disposition Disposition (needs filled in before D/C Order can be placed): Home, Self Care Charges/Coding Visit Charges Inpatient E&M: 15508 Disch Hosp >30min 10/12/24 1408 <Electronically signed by Luis Baer MD> Cosigner Signature (if applicable): CC: Dr. Ruddy Cooper MD; Dr. Luis Baer MD~ Signed [facility] Work Phone: [phone] 434-226606-17-2025 Consult note [facility] Medical Records Department [address] [place] [address] Counseling Note - Pharmacy 10/12/24 1450 MR#: [id number] Acct: [id number] Name: JUDI KRAUSE Rep #:[id number] : 1945 79 From: Kaya Thrasher PCP: Dr. Ruddy Cooper MD Status:AD M IN [place] [facility] [place] [place] [facility] Counseling Pharmacy Service has performed discharge medication reconciliation and counseling for this patient. 1. CEFDINIR 300MG PO BID X 3 DAYS The patient's discharge medication list was reviewed for discrepancies and discrepancies were resolved. The patient was counseled on the following discharge medications and changes in medications for homegoing were reviewed. The Reason for Use, instructions for use, and potential side effects were reviewed for all new medications. The patient's questions regarding all of their medications were answered. The patient was able to verbally demonstrate an understanding of their dischargemedications. Medications at Discharge Home Medications aspirin 81 mg tablet 81 mg PO DAILY heart health 02/02/21 letrozole 2.5 mg tablet 2.5 mg PO DAILY 08/25/24 metformin 500 mg tablet 500 mg PO DAILY diabetes mellitus 08/25/24 nortriptyline 50 mg capsule 150 mg PO QHS 08/25/24 meclizine 25 mg chewable tablet (Antivert) 25 mg PO TID PRN dizziness #10 tabs 09/09/24 losartan 25 mg tablet 25 mg PO DAILY 10/10/24 cefdinir 300 mg capsule 300 mg PO BID #6 caps 10/12/24 10/12/24 1456 Date _ Kaya Phillip Signature (if applicable): __ CC: ~ Signed [facility]06-17-2025 Discharge summary Author Luis Baer [facility] Note Date/Time October 12, 2024 1:14 pm [facility] Medical Records Department [address] [place] [address] Instructions for Home/Discharge Instructions 10/12/24 1254 MR#: [id number] Acct: [id number] Name: JUDI KRAUSE Rep #:[id number] : 1945 79 From: Luis newton MD PCP: Dr. Ruddy Cooper MD Status:AD M IN Discharge Instructions Diet Discharge Diet: No restrictions DC O2, CPAP, BIPAP needs Home O2 Discharge instructions: No Dressing / Incision Discharge Activity: Return to Normal Activity Dressing / Incision Call your doctor if you observe: Fever of 101 or Higher, Shortness of breath, Dizziness, Fainting spells, Swelling in the ankles, Chest pain and Increased palpitations (irregular heartbeat) Follow Up Care Test Results: Test results from this visit will be discussed in further detail at your follow- up appointment, if applicable. Discharge Plan Admission Admit Date/Time: 10/10/24 16:33 Attending Provider: Luis Baer Primary Care Provider: Ruddy Cooper Discharge Orders/Prescriptions Prescriptions: New cefdinir 300 mg capsule 300 mg PO BID Qty: 6 0RF Continued aspirin 81 mg Tablet 81 mg PO DAILY metformin 500 mg tablet 500 mg PO DAILY letrozole 2.5 mg tablet 2.5 mg PO DAILY nortriptyline 50 mg capsule 150 mg PO QHS meclizine [Antivert] 25 mg tablet,chewable 25 mg PO TID PRN (Reason: dizziness) Qty: 10 0RF Patient Comments: Per daughter, takes as needed. Rx Instructions: Use if having dizziness. losartan 25 mg tablet 25 mg PO DAILY Referrals / Follow Up: Ruddy Cooper MD [Primary Care Provider] - Within 1 Week Disposition Disposition (needs filled in before D/C Order can be placed): Home, Self Care 10/12/24 1314<Electronically signed by Luis Baer MD>Luis Baer MD CC: Dr. Ruddy Cooper MD ~ Signed [facility] Work Phone: [phone]) 243-814506-17-2025 Discharge summary [facility] Medical Records Department [address] [place] [address] Discharge Summary 10/12/24 1359 MR#: [id number] Acct: [id number] Name: JUDI KRAUSE Rep #:[id number] : 1945 79 From: Luis newton MD PCP: Dr. Ruddy Cooper MD Status:AD M IN [facility] Date of Admission: 10/10/24 Primary Care Physician: Dr. Ruddy Cooper MD Reason For Visit: AMS WITH UTI Diagnosis Discharge Diagnosis (1) Urinary tract infection: Status: Acute Code(s): N39.0 - Urinary tract infection, site not specified Medications at Discharge Home Medications aspirin 81 mg tablet 81 mg PO DAILY heart health 02/02/21 letrozole 2.5 mg tablet 2.5 mg PO DAILY 08/25/24 metformin 500 mg tablet 500 mg PO DAILY diabetes mellitus 08/25/24 nortriptyline 50 mg capsule 150 mg PO QHS 08/25/24 meclizine 25 mg chewable tablet (Antivert) 25 mg PO TID PRN dizziness #10 tabs 09/09/24 losartan 25 mg tablet 25 mg PO DAILY 10/10/24 cefdinir 300 mg capsule 300 mg PO BID #6 caps 10/12/24 Hospital Course Operations None Procedures None Summary of Care Provided Minutes Spent on Discharge: 34 Hospital Course: Per HPI: JUDI KRUASE, is a 79 F who presents to the hospital with confusion. Her daughter called the ambulance because she was talking to her on the phone and felt she was giving inappropriate responses and seemed confused. She statesthat she spoke to her daughter yesterday not today. She is not agreat historian because she thinks is 1924 and she cannot give the duration of her symptoms howevernilda says that she has been feeling off for a little bit and in the ER was found to have normal vital signs and fairly normal lab work, her lactic acid was elevated 2.6 but she does not have a leukocytosis, and she remains afebrile, brain CT and chest x-ray are unremarkable. Urine analysis demonstrates positive nitrites with leukocyte esterase of 104+ urine bacteria. Her previous culture in July grew a pansensitive Proteus and she was given a dose of Rocephin in the emergency room. Hospital Course: 1. Metabolic encephalopathy secondary to UTI in the presence of previous psychiatric illness and possible dementia?79-year-old female presents from home with confusion and altered mental status. She was on the phone with her daughter and she was nonsensical. This has been a chronic problem though it is unclear what steps been taken on the outpatient side to get her help for possible placement. Initially on admission she was confused, she thought it [id number] but she knew who she was and where shewas. Today she is much more alert with me and more appropriately interactive and is ANO x 3. Crisiswas consultedfor an evaluation however further workup will need to be deferred to the outpatient set ting. Best case scenario would be for her to live with family however she has a pansensitive E. coli UTI that has been treated appropriately with Rocephin and she will continue with cefdinir for 3 more days to complete treatment. Plan will be for discharge home with outpatient follow-up with her PCP in 3 to 5 days. 2. Essential hypertension, type 2 diabetes, history of breast cancer on hormonal therapy all chronic medical conditions which complicate her care. Her home medications were continued where appropriate Physical Exam Narrative General: Alert, Oriented x3, Cooperative, No apparent distress HEENT: Atraumatic, PERRLA, EOMI, Normocephalic Oral: Moist Mucosa Neck: Supple, No JVD Lungs: Diminished, Normal air movement, No rhonchi, No wheeze, No rales Cardiovascular: Regular rate, Regular Rhythm, Normal S1, Normal S2, No murmurs Abdomen: Soft, Non Tender, Non-Distended, No Hepato-splenomegaly Extremities: Nonpitting edema, Capillary Refill Less than 3 Seconds Skin: No rashes, No breakdown Musculoskeletal: No Tenderness to Palpation of Joints or Extremities Neurological: No focal neurological deficits, moves all extremities, sensation intact Psych/Mental Status: Normal Affect, Appropriate Weight / BMI Weight Weight: 144 lb 13.499 oz Body Mass Index (BMI) 25.6 ABG / Lab / Microbiology Data 10/11/24 06:41 10/11/24 06:41 Laboratory: Laboratory Results - last 24 hr 10/11/24 16:23: POC Glucose 100 10/11/24 22:49: POC Glucose 158 H 10/12/24 06:17: POC Glucose 115 H 10/12/24 11:27: POC Glucose 128 H Microbiology: Microbiology 10/10/24 15:30 Urine, Clean Catch Urine Culture - Final Escherichia coli 10/10/24 15:20 Mucosa - Nose SARS-CoV-2, Influenza & RSV (PCR) - Final D/C Instructions Discharge Diet: No restrictions Call your doctor if you observe: Fever of 101 or Higher, Shortness of breath, Dizziness, Fainting spells, Swelling in the ankles, Chest pain and Increased palpitations (irregular heartbeat) DC O2, CPAP, BIPAP Needs Home O2 [...] Simvastatin 80mg Discharge Plan Admission Admit Date/Time: 10/10/24 16:33 Attending Provider: Luis Baer Primary Care Provider: Ruddy Cooper Discharge Orders/Prescriptions Prescriptions: New cefdinir 300 mg capsule 300 mg PO BID Qty: 6 0RF Continued aspirin 81 mg Tablet 81 mg PO DAILY metformin 500 mg tablet 500 mg PO DAILY letrozole 2.5 mg tablet 2.5 mg PO DAILY nortriptyline 50 mg capsule 150 mg PO QHS meclizine [Antivert] 25 mg tablet,chewable 25 mg PO TID PRN (Reason: dizziness) Qty: 10 0RF Patient Comments: Per daughter, takes as needed. Rx Instructions: Use if having dizziness. losartan 25 mg tablet 25 mg PO DAILY Referrals / Follow Up: Ruddy Cooper MD [Primary Care Provider] - 10/18/24 11:40 am (THIS APPOINTMENT WILL BE WITH [facility] ) Disposition Disposition (needs filled in before D/C Order can be placed): Home, Self Care Charges/Coding Visit Charges Inpatient E&M: 03499 Disch Hosp >30min 10/12/24 1408 Cosigner Signature (if applicable): CC: Dr. Ruddy Cooper MD; Dr. Luis Baer MD~ Signed [facility]06-17-2025 [facility] Medical Records Department [address] [place] [address] Discharge Summary 10/12/24 1359 MR#: [id number] Acct: [id number] Name: JUDI KRAUSE Rep #: [id number] : 1945 79 From: Luis Baer MD PCP: Dr. Ruddy Cooper MD Status:ADM IN [facility] Prov[facility] Date of Admission: 10/10/24 Primary Care Physician: Dr. Ruddy Cooper MD Reason For Visit: AMS WITH UTI Diagnosis Discharge Diagnosis (1) Urinary tract infection: Status: Acute Code(s): N39.0 - Urinary tract infection, site not specified Medications at Discharge Home Medications aspirin 81 mg tablet 81 mg PO DAILY heart health 02/02/21 letrozole 2.5 mg tablet 2.5 mg PO DAILY 08/25/24 metformin 500 mg tablet 500 mg PO DAILY diabetes mellitus 08/25/24 nortriptyline 50 mg capsule 150 mg PO QHS 08/25/24 meclizine 25 mg chewable tablet (Antivert) 25 mg PO TID PRN dizziness #10 tabs 09/09/24 losartan 25 mg tablet 25 mg PO DAILY 10/10/24 cefdinir 300 mg capsule 300 mg PO BID #6 caps 10/12/24 Hospital Course Operations None Procedures None Summary of Care Provided Minutes Spent on Discharge: 34 Hospital Course: Per HPI: JUDI KRAUSE, is a 79 F who presents to the hospital with confusion. Her daughter called the ambulance because she was talking to her on the phone and felt she was giving inappropriate responses and seemed confused. She states that she spoke to her daughter yesterday not today. She is not a great historian because she thinks is 1924 and she cannot give the duration of her symptoms however she says that she has been feeling off for a little bit and in the ER was found to have normal vital signs and fairly normal lab work, her lactic acid was elevated 2.6 but she does not have a leukocytosis, and she remains afebrile, brain CT and chest x-ray are unremarkable. Urine analysis demonstrates positive nitrites with leukocyte esterase of 104+ urine bacteria. Her previous culture in July grew a pansensitive Proteus and she was given a dose of Rocephin in the emergency room. Hospital Course: 1. Metabolic encephalopathy secondary to UTI in the presence of previous psychiatric illness and possible dementia???79-year-old female presents from home with confusion and altered mental status. She was on the phone with her daughter and she was nonsensical. This has been a chronic problem though it is unclear what steps been taken on the outpatient side to get her help for possible placement. Initially on admission she was confused, she thought it was 1924 but she knew who she was and where she was. Today she is much more alert with me and more appropriately interactive and is ANO x 3. Crisis was consulted for an evaluation however further workup will need to be deferred to the outpatient setting. Best case scenario would be for her to live with family however she has a pansensitive E. coli UTI that has been treated appropriately with Rocephin and she will continue with cefdinir for 3 more days to complete treatment. Plan will be for discharge home with outpatient follow-up with her PCP in 3 to 5 days. 2. Essential hypertension, type 2 diabetes, history of breast cancer on hormonal therapy all chronic medical conditions which complicate her care. Her home medications were continued where appropriate Physical Exam Narrative General: Alert, Oriented x3, Cooperative, No apparent distress HEENT: Atraumatic, PERRLA, EOMI, Normocephalic Oral: Moist Mucosa Neck: Supple, No JVD Lungs: Diminished, Normal air movement, No rhonchi, No wheeze, No rales Cardiovascular: Regular rate, Regular Rhythm, Normal S1, Normal S2, No murmurs Abdomen: Soft, Non Tender, Non-Distended, No Hepato-splenomegaly Extremities: Nonpitting edema, Capillary Refill Less than 3 Seconds Skin: No rashes, No breakdown Musculoskeletal: No Tenderness to Palpation of Joints or Extremities Neurological: No focal neurological deficits, moves all extremities, sensation intact Psych/Mental Status: Normal Affect, Appropriate Weight / BMI Weight Weight: 144 lb 13.499 oz Body Mass Index (BMI) 25.6 ABG / Lab / Microbiology Data 10/11/24 06:41 10/11/24 06:41 Laboratory: Laboratory Results - last 24 hr 10/11/24 16:23: POC Glucose 100 10/11/24 22:49: POC Glucose 158 H 10/12/24 06:17: POC Glucose 115 H 10/12/24 11:27: POC Glucose 128 H Microbiology: Microbiology 10/10/24 15:30 Urine, Clean Catch Urine Culture - Final Escherichia coli 10/10/24 15:20 Mucosa - Nose SARS-CoV-2, Influenza RSV (PCR) - Final D/C Instructions Discharge Diet: No restrictions Call your doctor if you observe: Fever of 101 or Higher, Shortness of breath, Dizziness, Fainting spells, Swelling in the ankles, Chest pain and Increased palpitations (irregular heartbeat) DC O2, CPAP, BIPAP Needs Home (more content not included)...[facility]06-17-2025 Discharge summary [facility] Medical Records Department [address] [place] [address] Instructions for Home/Discharge Instructions 10/12/24 1254 MR#: [id number] Acct: [id number] Name: JUDI KRAUSE Rep #:[id number] : 1945 79 From: Luis newton MD PCP: Dr. Ruddy Cooper MD Status:AD M IN Discharge Instructions Diet Discharge Diet: No restrictions DC O2, CPAP, BIPAP needs Home O2 Discharge instructions: No Dressing / Incision Discharge Activity: Return to Normal Activity Dressing / Incision Call your doctor if you observe: Fever of 101 or Higher, Shortness of breath, Dizziness, Fainting spells, Swelling in the ankles, Chest pain and Increased palpitations (irregular heartbeat) Follow Up Care Test Results: Test results from this visit will be discussed in further detail at your follow- up appointment, if applicable. Discharge Plan Admission Admit Date/Time: 10/10/24 16:33 Attending Provider: Luis Baer Primary Care Provider: Ruddy Cooper Discharge Orders/Prescriptions Prescriptions: New cefdinir 300 mg capsule 300 mg PO BID Qty: 6 0RF Continued aspirin 81 mg Tablet 81 mg PO DAILY metformin 500 mg tablet 500 mg PO DAILY letrozole 2.5 mg tablet 2.5 mg PO DAILY nortriptyline 50 mg capsule 150 mg PO QHS meclizine [Antivert] 25 mg tablet,chewable 25 mg PO TID PRN (Reason: dizziness) Qty: 10 0RF Patient Comments: Per daughter, takes as needed. Rx Instructions: Use if having dizziness. losartan 25 mg tablet 25 mg PO DAILY Referrals / Follow Up: Ruddy Cooper MD [Primary Care Provider] - Within 1 Week Disposition Disposition (needs filled in before D/C Order can be placed): Home, Self Care 10/12/24 1314Luis Baer MD CC: Dr. Ruddy Cooper MD ~ Signed [facility]06-16-2025 Progress note Author Luis Baer [facility] Note Date/Time October 11, 2024 9:58 am [facility] Medical Records Department [address] [place] [address] Progress Note - Hospitalist 10/11/24 0956 MR#: [id number] Acct: [id number] Name: JUDI KRAUSE Rep #:[id number] : 1945 79 From: Luis newton MD PCP: Dr. Ruddy Cooper MD Status:AD M IN [place]: [facility] [place] Subjective Subjective Doing well today, seems little better than yesterday. She is A and O x 3 today Objective Data Objective Data Vital Signs: Vital Signs Temp Pulse Resp BP Pulse Ox O2 Del Method 97.9 F 80 16 144/60 H 96 Room Air 06/16/25 02:42 10/11/24 02:42 10/11/24 02:42 10/11/24 02:42 10/11/24 02:42 10/11/24 02:42 Oxygen Delivery Method Room Air Weight: 144 lb 13.499 oz Body Mass Index (BMI) 25.6 Intake & Output: Intake and Output for Last 24 Hours 10/10/24 10/11/24 10/12/24 03:59 03:59 03:59 Intake Total 1050 / 1050 Balance 1050 / 1050 Lab / Micro Data 10/11/24 06:41 10/11/24 06:41 Labs: Laboratory Results - last 24 hr 10/10/24 14:22: WBC 6.3, RBC 4.33, Hgb 13.2, Hct 39.8, MCV 91.9, MCH 30.5, MCHC 33.2, RDW Std Deviation 40.5, RDW Coeff of Meño 12.0, Plt Count 323, MPV 8.3, Immature Gran % (Auto) 0.300, Neut % (Auto) 62.3, Lymph % (Auto) 23.5, Edwards % (Auto) 9.3, Eos % (Auto) 3.8, Baso % (Auto) 0.8, Absolute Neuts (auto) 3.9, Absolute Lymphs (auto) 1.47, Nucleated RBC % 0, Sodium 136, Potassium 4.3, Chloride 103, Carbon Dioxide 22.2, Anion Gap 11, BUN 17, Creatinine 0.85, Estim Creat Clear Calc 50.87, Est GFR (MDRD) Non-Af 70, BUN/Creatinine Ratio 19.9, Glucose 194 H, Lactic Acid 2.6 H*, Calcium 9.1, Troponin T High Sens 15 H 10/10/24 15:30: Urine Color Yellow, Urine Clarity Cloudy, Urine pH 7.0, Ur Specific [place] 1.015, Urine Protein 15 H, Urine Glucose (UA) Normal, Urine Ketones Negative, Urine Occult Blood Negative, Urine Nitrite Positive H, Urine Bilirubin Negative, Urine Urobilinogen Normal, Ur Leukocyte Esterase 100 H, Urine RBC 0 SEEN, Urine WBC 5-10 SEEN, Ur Squamous Epith Cells 0-5 SEEN, Amorphous Sediment 3+, Urine Bacteria 4+, Coarse Granular Casts 0-5 SEEN, Urine Mucus 0 SEEN 06/15/25 16:20: Troponin T Hi Sens 2 Hr 15 H 10/10/24 18:16: Troponin T Hi Sens 4Hr 13 10/10/24 19:06: Lactic Acid 1.5 10/10/24 21:32: POC Glucose 159 H 10/11/24 06:41: WBC 6.2, RBC 3.96 L, Hgb 11.9 L, Hct 36.5 L, MCV 92.2, MCH 30.1,MCHC 32.6, RDW Std Deviation 40.9, RDW Coeff of Meño 12.0, Plt Count 284, MPV 8.3, Immature Gran % (Auto) 0.200, Neut % (Auto) 57.4, Lymph % (Auto) 28.2, Edwards% (Auto) 8.5, Eos % (Auto) 5.2 H, Baso % (Auto) 0.5, Absolute Neuts (auto) 3.6, Absolute Lymphs (auto) 1.75, Nucleated RBC % 0, Sodium 139, Potassium 4.3, Chloride 107, Carbon Dioxide 20.5 L, Anion Gap 12, BUN 16, Creatinine 0.81, Estim Creat Clear Calc 52.16, Est GFR (MDRD) Non-Af 75, BUN/Creatinine Ratio 20.1 H, Glucose 113 H, Calcium 8.3, POC Glucose 113 H Micro: Microbiology 10/10/24 15:30 Urine, Clean Catch Urine Culture - Preliminary GNR lactose professional bondsman 10/10/24 15:20 Mucosa - Nose SARS-CoV-2, Influenza & RSV (PCR) - Final Radiography Diagnostic Testing: Radiology Impression Brain CT 10/10/24 14:21 IMPRESSION: No acute intracranial finding. Stable postoperative changes as described. Reading Location: [facility] Chest X-Ray 10/10/24 15:05 IMPRESSION: NO ACUTE FINDINGS. Reading Location: [facility] Physical Exam Narrative General: Alert, Oriented x3, Cooperative, No apparent distress HEENT: Atraumatic, PERRLA, EOMI, Normocephalic Oral: Moist Mucosa Neck: Supple, No JVD Lungs: Diminished, Normal air movement, No rhonchi, No wheeze, No rales Cardiovascular: Regular rate, Regular Rhythm, Normal S1, Normal S2, No murmurs Abdomen: Soft, Non Tender, Non-Distended, No Hepato-splenomegaly Extremities: Nonpitting edema, Capillary Refill Less than 3 Seconds Skin: No rashes, No breakdown Musculoskeletal: No Tenderness to Palpation of Joints or Extremities Neurological: No focal neurological deficits, moves all extremities, sensation intact Psych/Mental Status: Normal Affect, Appropriate Assessment & Plan Assessment/Plan (1) Urinary tract infection: PLAN: Plan 1. Metabolic encephalopathy secondary to UTI ? Continue with Rocephin as her previous cultures were Proteus and are sensitive ? Continue with gentle IV fluids ? Urine culture is with greater than 100,000 CFU's of a gram-negative reba ? She is not septic, and encephalopathy has resolved 2. Essential HTN ? Blood pressures are stable ? Can resume her home losartan ? Will monitor make adjustments as necessary 3. DM2 ? Will hold her home medications ? Will monitor and make adjustments as necessary ? Sliding-scale insulin ? Accu-Cheks ACHS 4. She is on nortriptyline and possibly Seroquel unclear why at the moment 5. 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 Ruddy Cooper MD Status:AD M IN Location: [facility] BA270-5 Subjective Subjective Doing well today, seems little better than yesterday. She is A and O x 3 today Objective Data Objective Data Vital Signs: Vital Signs Temp Pulse Resp BP Pulse Ox O2 Del Method 97.9 F 80 16 144/60 H 96 Room Air 10/11/24 02:42 10/11/24 02:42 10/11/24 02:42 10/11/24 02:42 10/11/24 02:42 10/11/24 02:42 Oxygen Delivery Method Room Air Weight: 144 lb 13.499 oz Body Mass Index (BMI) 25.6 Intake & Output: Intake and Output for Last 24 Hours 10/10/24 10/11/24 10/12/24 03:59 03:59 03:59 Intake Total 1050 / 1050 Balance 1050 / 1050 Lab / Micro Data 10/11/24 06:41 10/11/24 06:41 Labs: Laboratory Results - last 24 hr 10/10/24 14:22: WBC 6.3, RBC 4.33, Hgb 13.2, Hct 39.8, MCV 91.9, MCH 30.5, MCHC 33.2, RDW Std Deviation 40.5, RDW Coeff of Meño 12.0, Plt Count 323, MPV 8.3, Immature Gran % (Auto) 0.300, Neut % (Auto) 62.3, Lymph % (Auto) 23.5, Edwards % (Auto) 9.3, Eos % (Auto) 3.8, Baso % (Auto) 0.8, Absolute Neuts (auto) 3.9, Absolute Lymphs (auto) 1.47, Nucleated RBC % 0, Sodium 136, Potassium 4.3, Chloride 103,Carbon Dioxide 22.2, Anion Gap 11, BUN 17, Creatinine 0.85, Estim Creat Clear Calc 50.87, Est GFR (MDRD) Non-Af 70, BUN/Creatinine Ratio 19.9, Glucose 194 H, Lactic Acid 2.6 H*, Calcium 9.1, TroponinT High Sens 15 H 10/10/24 15:30: Urine Color Yellow, Urine Clarity Cloudy, Urine pH 7.0, Ur Specific [place] 1.015, Urine Protein 15 H, Urine Glucose (UA) Normal, Urine Ketones Negative, Urine Occult Blood Negative, Urine Nitrite Positive H, Urine Bilirubin Negative, Urine Urobilinogen Normal, Ur Leukocyte [id number] H, Urine RBC 0 SEEN, Urine WBC 5-10 SEEN, Ur Squamous Epith Cells 0-5 SEEN, Amorphous Sediment 3+, Urine Bacteria 4+, Coarse Granular Casts 0-5 SEEN, Urine Mucus 0 SEEN 10/10/24 16:20: Troponin T Hi Sens 2 Hr 15 H 10/10/24 18:16: Troponin T Hi Sens 4Hr 13 10/10/24 19:06: Lactic Acid 1.5 10/10/24 21:32: POC Glucose 159 H 10/11/24 06:41: WBC 6.2, RBC 3.96 L, Hgb 11.9 L, Hct 36.5 L, MCV 92.2, MCH 30.1,MCHC 32.6, RDW Std Deviation 40.9, RDW Coeff of Meño 12.0, Plt Count 284, MPV 8.3, Immature Gran % (Auto) 0.200, Neut % (Auto) 57.4, Lymph % (Auto) 28.2, Edwards% (Auto) 8.5, Eos % (Auto) 5.2 H, Baso % (Auto) 0.5, Absolute Neuts (auto) 3.6, Absolute Lymphs (auto) 1.75, Nucleated RBC % 0, Sodium 139, Potassium 4.3, Chloride 107, Carbon Dioxide 20.5 L, Anion Gap 12, BUN 16, Creatinine 0.81, Estim Creat Clear Calc 52.16, Est GFR (MDRD) Non-Af 75, BUN/Creatinine Ratio 20.1 H, Glucose 113 H, Calcium 8.3, POC Glucose 113 H Micro: Microbiology 10/10/24 15:30 Urine, Clean Catch Urine Culture - Preliminary GNR lactose professional bondsman 10/10/24 15:20 Mucosa - Nose SARS-CoV-2, Influenza & RSV (PCR) - Final Radiography Diagnostic Testing: Radiology Impression Brain CT 10/10/24 14:21 IMPRESSION: No acute intracranial finding. Stable postoperative changes as described. Reading Location: [facility] Chest X-Ray 10/10/24 15:05 IMPRESSION: NO ACUTE FINDINGS. Reading Location: [facility] Physical Exam Narrative General: Alert, Oriented x3, Cooperative, No apparent distress HEENT: Atraumatic, PERRLA, EOMI, Normocephalic Oral: Moist Mucosa Neck: Supple, No JVD Lungs: Diminished, Normal air movement, No rhonchi, No wheeze, No rales Cardiovascular: Regular rate, Regular Rhythm, Normal S1, Normal S2, No murmurs Abdomen: Soft, Non Tender, Non-Distended, No Hepato-splenomegaly Extremities: Nonpitting edema, Capillary Refill Less than 3 Seconds Skin: No rashes, No breakdown Musculoskeletal: No Tenderness to Palpation of Joints or Extremities Neurological: No focal neurological deficits, moves all extremities, sensation intact Psych/Mental Status: Normal Affect, Appropriate Assessment & Plan Assessment/Plan (1) Urinary tract infection: PLAN: Plan 1. Metabolic encephalopathy secondary to UTI ? Continue with Rocephin as her previous cultures were Proteus and are sensitive ? Continue with gentle IV fluids ? Urine culture is with greater than 100,000 CFU's of a gram-negative reba ? She is not septic, and encephalopathy has resolved 2. Essential HTN ? Blood pressures are stable ? Can resume her home losartan ? Will monitor make adjustments as necessary 3. DM2 ? Will hold her home medications ? Will monitor and make adjustments as necessary ? Sliding-scale insulin ? Accu-Cheks ACHS 4. She is on nortriptyline and possibly Seroquel unclear why at the moment 5. 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 can resume if family brings in as it is nonformulary DVT: Lovenox Charges/Coding Visit Charges Inpatient E&M: 49647 Subs Hosp L2 10/11/24 0958 Cosigner Signature (if applicable): CC: ~ Signed [facility]06-16-2025 Discharge summary Author Jose Dodd [facility] Note Date/Time October 10, 2024 10:3 5pm [facility] Medical Records Department [address] [place] [address] Emergency Department Summary 10/10/24 MR#: [id number] Acct: [id number] Name: JUDI KRAUSE Rep #:[id number] : 1945 79 From: Jose Abdullahi PCP: Dr. Ruddy Cooper MD Status:AD M IN [place] [facility] [id number] H[place] History of Present Illness Chief Complaint: Confusion Informant: patient and EMS Onset/Context/Timing Onset: Today Timing: Continuous Quality: Confusion Location: Generalized Worsened by: Nothing Relieved by: Nothing Narrative Narrative: The patient presents with confusion that was noticed today. Patient was talkingon the phone with her daughter today and her daughter called EMS because she felt the patient was confused. Daughter states patient was not answering questions appropriately and was not making sense when she talk to her. Patient states she talked to her daughter yesterday on the phone. Patient states that she was not confused yesterday. Patient denies any fevers or chills. Patient states she feels off balance when he walks. Patient denies falling or hitting her head. Patient knows that there is September and Friday. Patient thinks it is 1974. [facility] Medical History Orthostatic hypotension Hoarseness History of [...] 81 mg PO DAILY heart health 02/02/21 10/09/24 History letrozole 2.5 mg tablet 2.5 mg PO DAILY 08/25/24 History metformin 500 mg tablet 500 mg PO DAILY diabetes joy litus 08/25/24 Unknown History nortriptyline 50 mg capsule 150 mg PO QHS 08/25/24 History quetiapine 25 mg tablet 25 mg PO QHS #30 tabs Unknown Rx meclizine 25 mg chewable tablet 25 mg PO TID PRN dizzi ness #10 tabs 09/09/24 Unknown Rx (Antivert) losartan 25 mg tablet 25 mg PO DAILY 10/10/2409/26 History Allergy/AdvReac Type Severity Reaction Status Date [...] ROS ROS ED Constitutional Constitutional ED: Denies chills or fever(s) Eyes Eyes: Denies blurry vision or change in vision ENT ENT ED: Denies rhinorrhea or sore throat Cardiovascular Cardiovascular: Denies chest pain or palpitations Respiratory/Chest Respiratory/Chest: Denies cough or dyspnea Gastrointestinal Gastrointestinal: Denies nausea or vomiting Genitourinary Genitourinary ED: Denies dysuria or hematuria Musculoskeletal Musculoskeletal: Denies back pain or neck pain Integumentary Denies abscess or rash Neurologic Neurologic: Denies headache(s) or weakness Allergic/Immunologic Allergic/Immunologic ED: Denies mouth swelling or urticaria EXAM Physical Exam Const Vital Signs: 10/10/24 14:03 10/10/24 15:34 10/10/24 16:00 Temperature 98.9 F 98.6 F 98.6 F Temperature Source Oral Oral Oral Pulse Rate 96 89 84 Respiratory Rate 21 H 17 17 Blood Pressure 117/76 134/83 H 118/80 Blood Pressure Mean 89 100 92 Pulse Ox 97 99 96 Oxygen Delivery Method Room Air Room Air Room Air Positive well nourished and well developed General Appearance ED: well developed and NAD HEENT Reports moist mucous membranes Negative for trauma Neck supple and no JVD Resp normal respiratory effort and clear to auscultation bilaterally Cardio regular rate and regular rhythm GI non-tender and non-distended Palpation: soft Neuro CN's II-XII intact bilaterally and no sensory deficits noted Sensorium / Orientation: alert and orientation impaired Motor Exam: strength 5/5 throughout Psych mental status grossly normal MDM MDM MDM Narrative Medical decision making narrative: Differential diagnosis includes intracranial bleeding, stroke, electrolyte abnormality, urinary tract infection, pneumonia, bronchitis, viral illness, cardiac dysrhythmia, cardiac ischemia, and anxiety. CT scan of the brain will be obtained to assess for intracranial bleeding and stroke. EKG will be obtained to assess for cardiac dysrhythmia and cardiac ischemia. Chest x-ray will be obtained to assess for pneumonia or bronchitis. CBC will be obtained toassess for leukocytosis and anemia. Basic metabolic profile will be obtained toassess for electrolyte abnormality and renal function. High-sensitivity troponin will be obtained to assess for cardiac ischemia. 2-hour repeat high-sensitivity troponin will be obtained to assess for ongoing cardiac ischemia. Urinalysis will be obtained to assess for urinary tract infection. Serum lactate will be obtained to assess for sepsis. COVID-19, influenza, and RSV PCRwill be obtained to assess for viral illness. History & Record Review Additional record(s) reviewed:: Prior ED visit and Prior labs Lab Data Attestation: I reviewed the patient's lab results. Lab results narrative: CBC was reviewed and was within normal limits. Basic metabolic profile was reviewed. Glucose was mildly elevated at 194. Serum lactate was reviewed and was elevated at 2.6. A high-sensitivity troponin was reviewed and was slightly elevated at 15. Urinalysis was reviewed. Leukocyte Estrace was 100 with 5-10 white blood cells. There is 4+ bacteria. COVID-19 PCR was reviewed and was negative. Influenza PCR was reviewed and was negative for influenza A and influenza B. RSV PCR was reviewed and was negative. Labs: Laboratory Results - last 24 hr 10/10/24 10/10/24 14:22 15:30 WBC 6.3 RBC 4.33 Hgb 13.2 Hct 39.8 MCV 91.9 MCH 30.5 MCHC 33.2 RDW Std Deviation 40.5 RDW Coeff of Meño 12.0 Plt Count 323 MPV 8.3 Immature Gran % (Auto) 0.300 Neut % (Auto) 62.3 Lymph % (Auto) 23.5 Edwards % (Auto) 9.3 Eos % (Auto) 3.8 Baso % (Auto) 0.8 Absolute Neuts (auto) 3.9 Absolute Lymphs (auto) 1.47 Nucleated RBC % 0 Sodium 136 Potassium 4.3 Chloride 103 Carbon Dioxide 22.2 Anion Gap 11 BUN 17 Creatinine 0.85 Estim Creat Clear Calc 50.87 Est GFR (MDRD) Non-Af 70 BUN/Creatinine Ratio 19.9 Glucose 194 H Lactic Acid 2.6 H* Calcium 9.1 Troponin T High Sens 15 H Urine Color Yellow Urine Clarity Cloudy Urine pH 7.0 Ur Specific [place] 1.015 Urine Protein 15 H Urine Glucose (UA) Normal Urine Ketones Negative Urine Occult Blood Negative Urine Nitrite Positive H Urine Bilirubin Negative Urine Urobilinogen Normal Ur Leukocyte Esterase 100 H Urine RBC 0 SEEN Urine WBC 5-10 SEEN Ur Squamous Epith Cells 0-5 SEEN Amorphous Sediment 3+ Urine Bacteria 4+ Coarse Granular Casts 0-5 SEEN Urine Mucus 0 SEEN Radiography Chest X-Ray - ED: 2 View, Read by ED Physician, Read by Radiologist and No AcuteDisease Diagnostic Testing: Clinical Impression(s) from Imaging Studies Brain CT 10/10/24 14:21 IMPRESSION: No acute intracranial finding. Stable postoperative changes as described. Reading Location: [facility] Chest X-Ray 10/10/24 15:05 IMPRESSION: NO ACUTE FINDINGS. Reading Location: [facility] CT scan of the brain was obtained. There is no acute intracranial abnormality. There are chronic changes noted. This was interpreted by the radiologist and was also independently reviewed by myself. PA and lateral chest x-ray was obtained. There are 2 views. On my independent interpretation, lung singh are clear. There is normal cardiac silhouette. Bony thorax is normal. There is no acute process noted. Radiologist also interpreted the x-ray and agrees. EKG Initial EKG: Attestation: I personally reviewed and interpreted this EKG as follows: Interpretation: Sinus Rhythm (92) and No Acute Injury Pattern Comments: EKG was obtained. On my independent interpretation, it showed anormal sinus rhythm with a rate of 92. OH interval, QRS interval, and QTc intervals were all normal. There is left axis deviation at -29. There are no acute ST or T wave changes. Prior EKG tracings: available for review Prior: Unchanged (08/25/2024) Treatment and Re-Evaluation :: Blood cultures and urine culture were obtained. Patient was started on Rocephin. Case was discussed with the hospitalist. He will admit the patient to his service. Patient understood and was agreeable with the plan. All questions were answered. Discharge Plan Triage Chief Complaint: Confusion ED Provider: Jose Dodd Dx/Rx/DC Orders Clinical Impression: Urinary tract infection, Confusion, Lactic acidosis Prescriptions: No Action aspirin 81 mg Tablet 81 mg PO DAILY metformin 500 mg tablet 500 mg PO DAILY letrozole 2.5 mg tablet 2.5 mg PO DAILY nortriptyline 50 mg capsule 150 mg PO QHS quetiapine 25 mg Tablet 25 mg PO QHS Qty: 30 0RF Patient Comments: PT UNSURE IF SHE TAKES. meclizine [Antivert] 25 mg tablet,chewable 25 mg PO TID PRN (Reason: dizziness) Qty: 10 0RF Patient Comments: PT UNSURE IF SHE TAKES. Rx Instructions: Use if having dizziness. losartan 25 mg tablet 25 mg PO DAILY Primary Care Provider: Ruddy Cooper Referrals: Ruddy Cooper MD [Primary Care Provider] - Print Language: Afghan Disposition Disposition: Acute Care Hospital [facility] What to do if you have Problems For any increased pain, shortness of breath, bleeding, nausea or vomiting, chestpain, or any unexpected problems, contact your Primary Care Provider. Call [facility] ([phone]) or report to the closest Emergency Room. Call 911 if necessary. 10/10/242234 <Electronically signed by Jose Dodd DO> Cosigner Signature (if applicable): CC: Dr. Ruddy Cooper MD ~ Signed [facility] Work Phone: [phone] Discharge summary [facility] Medical Records Department [address] [place] [address] Emergency Department Summary 10/10/24 MR#: [id number] Acct: [id number] Name: JUDI KRAUSE Rep #:[id number] : 1945 79 From: Jose Abdullahi PCP: Dr. Ruddy Cooper MD Status:AD M IN Location: MS3 [id number] HPI History of Present Illness Chief Complaint: Confusion Informant: patient and EMS Onset/Context/Timing Onset: Today Timing: Continuous Quality: Confusion Location: Generalized Worsened by: Nothing Relieved by: Nothing Narrative Narrative: The patient presents with confusion that was noticed today. Patient was talkingon the phone with her daughter today and her daughter called EMS because she felt the patient was confused. Daughter states patient was not answering questions appropriately and was not making sense when she talk to her.Patient states she talked to her daughter yesterday on the phone. Patient states that she was not confused yesterday. Patient denies any fevers or chills. Patient states she feels off balance when hewalks. Patient denies falling or hitting her head. Patient knows that there is September and Friday. Patient thinks it is 1974. [facility] Medical History Orthostatic hypotension Hoarseness History of [...] 81 mg PO DAILY heart health 02/02/21 10/09/24 History letrozole 2.5 mg tablet 2.5 mg PO DAILY 08/25/24 History metformin 500 mg tablet 500 mg PO DAILY diabetes joy litus 08/25/24 Unknown History nortriptyline 50 mg capsule 150 mg PO QHS 08/25/24 History quetiapine 25 mg tablet 25 mg PO QHS #30 tabs Unknown Rx meclizine 25 mg chewable tablet 25 mg PO TID PRN dizzi ness #10 tabs 09/09/24 Unknown Rx (Antivert) losartan 25 mg tablet 25 mg PO DAILY 10/10/2409/26 History Allergy/AdvReac Type Severity Reaction Status Date [...] ROS ROS ED Constitutional Constitutional ED: Denies chills or fever(s) Eyes Eyes: Denies blurry vision or change in vision ENT ENT ED: Denies rhinorrhea or sore throat Cardiovascular Cardiovascular: Denies chest pain or palpitations Respiratory/Chest Respiratory/Chest: Denies cough or dyspnea Gastrointestinal Gastrointestinal: Denies nausea or vomiting Genitourinary Genitourinary ED: Denies dysuria or hematuria Musculoskeletal Musculoskeletal: Denies back pain or neck pain Integumentary Denies abscess or rash Neurologic Neurologic: Denies headache(s) or weakness Allergic/Immunologic Allergic/Immunologic ED: Denies mouth swelling or urticaria EXAM Physical Exam Const Vital Signs: 10/10/24 14:03 10/10/24 15:34 10/10/24 16:00 Temperature 98.9 F 98.6 F 98.6 F Temperature Source Oral Oral Oral Pulse Rate 96 89 84 Respiratory Rate 21 H 17 17 Blood Pressure 117/76 134/83 H 118/80 Blood Pressure Mean 89 100 92 Pulse Ox 97 99 96 Oxygen Delivery Method Room Air Room Air Room Air Positive well nourished and well developed General Appearance ED: well developed and NAD HEENT Reports moist mucous membranes Negative for trauma Neck supple and no JVD Resp normal respiratory effort and clear to auscultation bilaterally Cardio regular rate and regular rhythm GI non-tender and non-distended Palpation: soft Neuro CN's II-XII intact bilaterally and no sensory deficits noted Sensorium / Orientation: alert and orientation impaired Motor Exam: strength 5/5 throughout Psych mental status grossly normal MDM MDM MDM Narrative Medical decision making narrative: Differential diagnosis includes intracranial bleeding, stroke, electrolyte abnormality, urinary tract infection, pneumonia, bronchitis, viral illness, cardiac dysrhythmia, cardiac ischemia, and anxiety. CT scan of the brain will be obtained to assess for intracranial bleeding and stroke. EKG will be obtained to assess for cardiac dysrhythmia and cardiac ischemia. Chest x-ray will be obtained to assess for pneumonia or bronchitis. CBC will be obtained toassess for leukocytosis and anemia. Basic metabolic profile will be obtained toassess for electrolyte abnormality and renal function. High-sensitivity troponin will be obtained to assess for cardiac ischemia. 2-hour repeat high-sensitivity tro ponin will be obtained to assess for ongoing cardiac ischemia. Urinalysis will be obtained to assess for urinary tract infection. Serum lactate will be obtained to assess for sepsis. COVID-19, influenza, and RSV PCRwill be obtained to assess for viral illness. History & Record Review Additional record(s) reviewed:: Prior ED visit and Prior labs Lab Data Attestation: I reviewed the patient's lab results. Lab results narrative: CBC was reviewed and was within normal limits. Basic metabolic profile was reviewed. Glucose was mildly elevated at 194. Serum lactate was reviewed and was elevated at 2.6. A high-sensitivity troponin was reviewed and was slightly elevated at 15. Urinalysis was reviewed. Leukocyte Estrace was 100 with 5-10 white blood cells. There is 4+ bacteria. COVID-19 PCR was reviewed and was negative. Influenza PCR was reviewed and was negative for influenza A and influenza B. RSV PCR was reviewed and was negative. Labs: Laboratory Results - last 24 hr 10/10/24 10/10/24 14:22 15:30 WBC 6.3 RBC 4.33 Hgb 13.2 Hct 39.8 MCV 91.9 MCH 30.5 MCHC 33.2 RDW Std Deviation 40.5 RDW Coeff of Meño 12.0 Plt Count 323 MPV 8.3 Immature Gran % (Auto) 0.300 Neut % (Auto) 62.3 Lymph % (Auto) 23.5 Edwards % (Auto) 9.3 Eos % (Auto) 3.8 Baso % (Auto) 0.8 Absolute Neuts (auto) 3.9 Absolute Lymphs (auto) 1.47 Nucleated RBC % 0 Sodium 136 Potassium 4.3 Chloride 103 Carbon Dioxide 22.2 Anion Gap 11 BUN 17 Creatinine 0.85 Estim Creat Clear Calc 50.87 Est GFR (MDRD) Non-Af 70 BUN/Creatinine Ratio 19.9 Glucose 194 H Lactic Acid 2.6 H* Calcium 9.1 Troponin T High Sens 15 H Urine Color Yellow Urine Clarity Cloudy Urine pH 7.0 Ur Specific [place] 1.015 Urine Protein 15 H Urine Glucose (UA) Normal Urine Ketones Negative Urine Occult Blood Negative Urine Nitrite Positive H Urine Bilirubin Negative Urine Urobilinogen Normal Ur Leukocyte Esterase 100 H Urine RBC 0 SEEN Urine WBC 5-10 SEEN Ur Squamous Epith Cells 0-5 SEEN Amorphous Sediment 3+ Urine Bacteria 4+ Coarse Granular Casts 0-5 SEEN Urine Mucus 0 SEEN Radiography Chest X-Ray - ED: 2 View, Read by ED Physician, Read by Radiologist and No AcuteDisease Diagnostic Testing: Clinical Impression(s) from Imaging Studies Brain CT 10/10/24 14:21 IMPRESSION: No acute intracranial finding. Stable postoperative changes as described. Reading Location: [facility] Chest X-Ray 10/10/24 15:05 IMPRESSION: NO ACUTE FINDINGS. Reading Location: [facility] CT scan of the brain was obtained. There is no acute intracranial abnormality. There are chronic changes noted. This was interpreted by the radiologist and was also independently reviewed by myself. PA and lateral chest x-ray was obtained. There are 2 views. On my independent interpretation, lung singh are clear. There is normal cardiac silhouette. Bony thorax is normal. There is no acute process noted. Radiologist also interpreted the x-ray and agrees. EKG Initial EKG: Attestation: I personally reviewed and interpreted this EKG as follows: Interpretation: Sinus Rhythm (92) and No Acute Injury Pattern Comments: EKG was obtained. On my independent interpretation, it showed anormal sinus rhythm with arate of 92. OH interval, QRS interval, and QTc intervals were all normal. There is left axis deviation at -29. There are no acute ST or T wave changes. Prior EKG tracings: available for review Prior: Unchanged (08/25/2024) Treatment and Re-Evaluation :: Blood cultures and urine culture were obtained. Patient was started on Rocephin. Case was discussedwith the hospitalist. He will admit the patient to his service. Patient understood and was agreeable with the plan. All questions were answered. Discharge Plan Triage Chief Complaint: Confusion ED Provider: Jose Dodd Dx/Rx/DC Orders Clinical Impression: Urinary tract infection, Confusion, Lactic acidosis Prescriptions: No Action aspirin 81 mg Tablet 81 mg PO DAILY metformin 500 mg tablet 500 mg PO DAILY letrozole 2.5 mg tablet 2.5 mg PO DAILY nortriptyline 50 mg capsule 150 mg PO QHS quetiapine 25 mg Tablet 25 mg PO QHS Qty: 30 0RF Patient Comments: PT UNSURE IF SHE TAKES. meclizine [Antivert] 25 mg tablet,chewable 25 mg PO TID PRN (Reason: dizziness) Qty: 10 0RF Patient Comments: PT UNSURE IF SHE TAKES. Rx Instructions: Use if having dizziness. losartan 25 mg tablet 25 mg PO DAILY Primary Care Provider: Ruddy Cooper Referrals: Ruddy Cooper MD [Primary Care Provider] - Print Language: Afghan Disposition Disposition: Acute Care Hospital [facility] What to do if you have Problems For any increased pain, shortness of breath, bleeding, nausea or vomiting, chestpain, or any unexpected problems, contact your Primary Care Provider. Call [facility] ([phone]) or report tothe closest Emergency Room. Call 911 if necessary. 10/10/242234 Cosigner Signature (if applicable): CC: Dr. Ruddy Cooper MD ~ Signed [facility]06-15-2025 History and physical note Author Luis Baer [facility] Note Date/Time October 10, 2024 6:42 pm [facility] Medical Records Department [address] [place] [address] H&P Exam - Hospitalist 10/10/24 1640 MR#: [id number] Acct: [id number] Name: KRAUSEJUDI Rep #:[id number] : 1945 79 From: Luis newton MD PCP: Dr. Ruddy Cooper MD Status:AD M IN Location: [facility] [id number] HPI - General General Date of Admission: 10/10/24 HPI Narrative JUDI KRAUSE, is a 79 F who presents to the hospital with confusion. Her daughter called the ambulance because she was talking to her on the phone and felt she was giving inappropriate responses and seemed confused. She states that she spoke to her daughter yesterday not today. She is not a great historian because she thinks is 192 and she cannot give the duration of her symptoms however she says that she has been feeling off for a little bit and in the ER was found to have normal vital signs and fairly normal lab work, her lactic acid was elevated 2.6 but she does not have a leukocytosis, and she remains afebrile, brain CT and chest x-ray are unremarkable. Urine analysis demonstrates positive nitrites with leukocyte esterase of 104+ urine bacteria. Her previous culture in July grew a pansensitive Proteus and she was given a dose of Rocephin in the emergency room. [facility] Medical History Orthostatic hypotension Hoarseness History of [...] 81 mg PO DAILY heart health 02/02/21 10/09/24 History letrozole 2.5 mg tablet 2.5 mg PO DAILY 08/25/24 History metformin 500 mg tablet 500 mg PO DAILY diabetes joy litus 08/25/24 Unknown History nortriptyline 50 mg capsule 150 mg PO QHS 08/25/24 History quetiapine 25 mg tablet 25 mg PO QHS #30 tabs Unknown Rx meclizine 25 mg chewable tablet 25 mg PO TID PRN dizzi ness #10 tabs 09/09/24 Unknown Rx (Antivert) losartan 25 mg tablet 25 mg PO DAILY 10/10/2409/26 History Allergy/AdvReac Type Severity Reaction Status Date [...] substance use type: does not use ROS Constitutional Constitutional: Denies chills, fatigue, fever(s) or malaise Eyes Eyes: Denies blurry vision ENT HEENT: Denies headache(s) or nasal discharge Cardiovascular Cardiovascular: Denies chest pain, dyspnea on exertion or syncope Respiratory/Chest Respiratory/Chest: Denies cough, shortness of breath at rest or shortness of breath with exertion Gastrointestinal Gastrointestinal: Denies constipation, diarrhea, nausea or vomiting Genitourinary Genitourinary: Denies dysuria Neurologic Neurologic: Reports confusion; Denies focal weakness, numbness or tremor(s) Psychiatric Psychiatric: Denies anxiety or depression Vital Signs Vital Signs Vital Signs: 10/10/24 14:03 10/10/24 15:34 10/10/24 16:00 Temperature 98.9 F 98.6 F 98.6 F Temperature Source Oral Oral Oral Pulse Rate 96 89 84 Respiratory Rate 21 H 17 17 Blood Pressure 117/76 134/83 H 118/80 Blood Pressure Mean 89 100 92 Pulse Ox 97 99 96 Oxygen Delivery Method Room Air Room Air Room Air Weight Weight: 152 lb 5.431 oz Body Mass Index (BMI) 26.9 Physical Exam Narrative General: Alert, Oriented x2, Cooperative, No apparent distress HEENT: Atraumatic, PERRLA, EOMI, Normocephalic Oral: Moist Mucosa Neck: Supple, No JVD Lungs: Diminished, Normal air movement, No rhonchi, No wheeze, No rales Cardiovascular: Regular rate, Regular Rhythm, Normal S1, Normal S2, No murmurs Abdomen: Soft, Non Tender, Non-Distended, No Hepato-splenomegaly Extremities: Nonpitting edema, Capillary Refill Less than 3 Seconds Skin: No rashes, No breakdown Musculoskeletal: No Tenderness to Palpation of Joints or Extremities Neurological: No focal neurological deficits, moves all extremities, sensation intact Psych/Mental Status: Normal Affect, Appropriate Results Lab / Micro Data 10/10/24 14:22 10/10/24 14:22 Labs: Laboratory Results - last 24 hr 10/10/24 14:22: WBC 6.3, RBC 4.33, Hgb 13.2, Hct 39.8, MCV 91.9, MCH 30.5, MCHC 33.2, RDW Std Deviation 40.5, RDW Coeff of Meño 12.0, Plt Count 323, MPV 8.3, Immature Gran % (Auto) 0.300, Neut % (Auto) 62.3, Lymph % (Auto) 23.5, Edwards % (Auto) 9.3, Eos % (Auto) 3.8, Baso % (Auto) 0.8, Absolute Neuts (auto) 3.9, Absolute Lymphs (auto) 1.47, Nucleated RBC % 0, Sodium 136, Potassium 4.3, Chloride 103, Carbon Dioxide 22.2, Anion Gap 11, BUN 17, Creatinine 0.85, Estim Creat Clear Calc 50.87, Est GFR (MDRD) Non-Af 70, BUN/Creatinine Ratio 19.9, Glucose 194 H, Lactic Acid 2.6 H*, Calcium 9.1, Troponin T High Sens 15 H 10/10/24 15:30: Urine Color Yellow, Urine Clarity Cloudy, Urine pH 7.0, Ur Specific [place] 1.015, Urine Protein 15 H, Urine Glucose (UA) Normal, Urine Ketones Negative, Urine Occult Blood Negative, Urine Nitrite Positive H, Urine Bilirubin Negative, Urine Urobilinogen Normal, Ur Leukocyte Esterase 100 H, Urine RBC 0 SEEN, Urine WBC 5-10 SEEN, Ur Squamous Epith Cells 0-5 SEEN, Amorphous Sediment 3+, Urine Bacteria 4+, Coarse Granular Casts 0-5 SEEN, Urine Mucus 0 SEEN Micro: Microbiology 10/10/24 15:20 Mucosa - Nose SARS-CoV-2, Influenza & RSV (PCR) - Final Imaging Radiology Impression Brain CT 10/10/24 14:21 IMPRESSION: No acute intracranial finding. Stable postoperative changes as described. Reading Location: [facility] Chest X-Ray 10/10/24 15:05 IMPRESSION: NO ACUTE FINDINGS. Reading Location: [facility] Assessment & Plan Assessment/Plan (1) Urinary tract infection: PLAN: Plan 1. Metabolic encephalopathy secondary to UTI ? Continue with Rocephin as her previous cultures were Proteus and are sensitive ? Continue with gentle IV fluids ? Urine culture is pending ? She is not septic 2. Essential HTN ? Blood pressures are stable ? Can resume her home losartan ? Will monitor make adjustments as necessary 3. DM2 ? Will hold her home medications ? Will monitor and make adjustments as necessary ? Sliding-scale insulin ? Accu-Cheks ACHS 4. She is on nortriptyline and possibly Seroquel unclear why at the moment 5. 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 Ruddy Cooper MD; Dr. Luis Baer MD~ Signed [facility] Work Phone: [phone]) 862-481406-15-2025 History and physical note [facility] Medical Records Department [address] [facility] [place] [address] H&P Exam - Hospitalist 10/10/24 1640 MR#: [id number] Acct: [id number] Name: JUDI KRAUSE Rep #:[id number] : 1945 79 From: Luis newton MD PCP: Dr. Ruddy Cooper MD Status:AD M IN Location: WA3 RD108-2 HPI - General General Date of Admission: 10/10/24 HPI Narrative JUDI KRAUSE, is a 79 F who presents to the hospital with confusion. Her daughter called the ambulance because she was talking to her on the phone and felt she was giving inappropriate responses and seemed confused. She states that she spoke to her daughter yesterday not today. She is not a great historian because she thinks is 1923 and she cannot give the duration of her symptoms however she says that she has been feeling off for a little bit and in the ER was found to have normal vital signs and fairly normal lab work, her lactic acid was elevated 2.6 but she does not have a leukocytosis, and she remains afebrile, brain CT and chest x-ray are unremarkable. Urine analysis demonstrates positive nitrites with leukocyte esterase of 104+ urine bacteria. Her previous culture in July grew a pansensitive Proteus and she was given a dose of Rocephin in the emergency room. [facility] Medical History Orthostatic hypotension Hoarseness History of [...] 81 mg PO DAILY heart health 02/02/21 10/09/24 History letrozole 2.5 mg tablet 2.5 mg PO DAILY 08/25/24 History metformin 500 mg tablet 500 mg PO DAILY diabetes joy litus 08/25/24 Unknown History nortriptyline 50 mg capsule 150 mg PO QHS 08/25/24 History quetiapine 25 mg tablet 25 mg PO QHS #30 tabs Unknown Rx meclizine 25 mg chewable tablet 25 mg PO TID PRN dizzi ness #10 tabs 09/09/24 Unknown Rx (Antivert) losartan 25 mg tablet 25 mg PO DAILY 10/10/2409/26 History Allergy/AdvReac Type Severity Reaction Status Date [...] substance use type: does not use ROS Constitutional Constitutional: Denies chills, fatigue, fever(s) or malaise Eyes Eyes: Denies blurry vision ENT HEENT: Denies headache(s) or nasal discharge Cardiovascular Cardiovascular: Denies chest pain, dyspnea on exertion or syncope Respiratory/Chest Respiratory/Chest: Denies cough, shortness of breath at rest or shortness of breath with exertion Gastrointestinal Gastrointestinal: Denies constipation, diarrhea, nausea or vomiting Genitourinary Genitourinary: Denies dysuria Neurologic Neurologic: Reports confusion; Denies focal weakness, numbness or tremor(s) Psychiatric Psychiatric: Denies anxiety or depression Vital Signs Vital Signs Vital Signs: 10/10/24 14:03 10/10/24 15:34 10/10/24 16:00 Temperature 98.9 F 98.6 F 98.6 F Temperature Source Oral Oral Oral Pulse Rate 96 89 84 Respiratory Rate 21 H 17 17 Blood Pressure 117/76 134/83 H 118/80 Blood Pressure Mean 89 100 92 Pulse Ox 97 99 96 Oxygen Delivery Method Room Air Room Air Room Air Weight Weight: 152 lb 5.431 oz Body Mass Index (BMI) 26.9 Physical Exam Narrative General: Alert, Oriented x2, Cooperative, No apparent distress HEENT: Atraumatic, PERRLA, EOMI, Normocephalic Oral: Moist Mucosa Neck: Supple, No JVD Lungs: Diminished, Normal air movement, No rhonchi, No wheeze, No rales Cardiovascular: Regular rate, Regular Rhythm, Normal S1, Normal S2, No murmurs Abdomen: Soft, Non Tender, Non-Distended, No Hepato-splenomegaly Extremities: Nonpitting edema, Capillary Refill Less than 3 Seconds Skin: No rashes, No breakdown Musculoskeletal: No Tenderness to Palpation of Joints or Extremities Neurological: No focal neurological deficits, moves all extremities, sensation intact Psych/Mental Status: Normal Affect, Appropriate Results Lab / Micro Data 10/10/24 14:22 10/10/24 14:22 Labs: Laboratory Results - last 24 hr 10/10/24 14:22: WBC 6.3, RBC 4.33, Hgb 13.2, Hct 39.8, MCV 91.9, MCH 30.5, MCHC 33.2, RDW Std Deviation 40.5, RDW Coeff of Meño 12.0, Plt Count 323, MPV 8.3, Immature Gran % (Auto) 0.300, Neut % (Auto) 62.3, Lymph % (Auto) 23.5, Edwards % (Auto) 9.3, Eos % (Auto) 3.8, Baso % (Auto) 0.8, Absolute Neuts (auto) 3.9, Absolute Lymphs (auto) 1.47, Nucleated RBC % 0, Sodium 136, Potassium 4.3, Chloride 103,Carbon Dioxide 22.2, Anion Gap 11, BUN 17, Creatinine 0.85, Estim Creat Clear Calc 50.87, Est GFR (MDRD) Non-Af 70, BUN/Creatinine Ratio 19.9, Glucose 194 H, Lactic Acid 2.6 H*, Calcium 9.1, TroponinT High Sens 15 H 10/10/24 15:30: Urine Color Yellow, Urine Clarity Cloudy, Urine pH 7.0, Ur Specific [place] 1.015, Urine Protein 15 H, Urine Glucose (UA) Normal, Urine Ketones Negative, Urine Occult Blood Negative, Urine Nitrite Positive H, Urine Bilirubin Negative, Urine Urobilinogen Normal, Ur Leukocyte [id number] H, Urine RBC 0 SEEN, Urine WBC 5-10 SEEN, Ur Squamous Epith Cells 0-5 SEEN, Amorphous Sediment 3+, Urine Bacteria 4+, Coarse Granular Casts 0-5 SEEN, Urine Mucus 0 SEEN Micro: Microbiology 10/10/24 15:20 Mucosa - Nose SARS-CoV-2, Influenza & RSV (PCR) - Final Imaging Radiology Impression Brain CT 10/10/24 14:21 IMPRESSION: No acute intracranial finding. Stable postoperative changes as described. Reading Location: [facility] Chest X-Ray 10/10/24 15:05 IMPRESSION: NO ACUTE FINDINGS. Reading Location: [facility] Assessment & Plan Assessment/Plan (1) Urinary tract infection: PLAN: Plan 1. Metabolic encephalopathy secondary to UTI ? Continue with Rocephin as her previous cultures were Proteus and are sensitive ? Continue with gentle IV fluids ? Urine culture is pending ? She is not septic 2. Essential HTN ? Blood pressures are stable ? Can resume her home losartan ? Will monitor make adjustments as necessary 3. DM2 ? Will hold her home medications ? Will monitor and make adjustments as necessary ? Sliding-scale insulin ? Accu-Cheks ACHS 4. She is on nortriptyline and possibly Seroquel unclear why at the moment 5. 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 Ruddy Cooper MD; Dr. Luis Baer MD~ Signed [facility]06-15-2025 Radiology Diagnostic study note [facility] Imaging Services [address] [place], [place] [address] Chest PA and Lateral MR#: [id number] Acct: [id number] Name: JUDI KRAUSE Rep #: [id number] : 1945 F 79 From: Tess Hoskins MD PCP: Dr. Ruddy Cooper MD Status: RE G ER Study:Chest PA and Lateral Date of Exam: 10/10/24 Exam# [id number] Ordering Dr: Jose Dodd DO PROCEDURE: CHEST PA AND LATERAL 10/10/2024 REASON FOR EXAM: CONFUSION TECHNIQUE: CHEST PA AND LATERAL COMPARISON: CT chest, abdomen and pelvis 08/25/2024. FINDINGS: Hardware: None. Heart: The heart size is normal. Mediastinum: The mediastinal contour is stable. Lungs: No focal consolidation, pleural effusion or pneumothorax. Bones: Degenerative changes are identified within the thoracic spine. RAD/Chest PA and Lateral IMPRESSION: NO ACUTE FINDINGS. Reading Location: [facility] CC: Dr. Jose Dodd DO; Dr. Ruddy Cooper MD ~ Showroom Salesperson: Signed [facility]06-15-2025 Radiology Diagnostic study note [facility] Imaging Services [address] [place] [address] Brain/Head without Contrast MR#: [id number] Acct: [id number] Name: JUDI KRAUSE Rep #: [id number] : 1945 F 79 From: Tess Hoskins MD PCP: Dr. Ruddy Cooper MD Status: RE G ER Study:Brain/Head without Contrast Date of Exa m: 10/10/24 Exam# [id number] Ordering Dr: Jose Dodd DO EXAM: BRAIN/HEAD WITHOUT CONTRAST CLINICAL HISTORY: 79 y/o F with CONFUSION. COMPARISON: CT head 08/25/2024. TECHNIQUE: Routine CT imaging of the head without IV contrast. Additional multiplanar reformats were obtained. Dose reduction techniques were used including intermediate exposure control (AEC),iterative reconstruction technique, and/or mA and/or KV dose adjustments based on patient's size. FINDINGS: Visualization is limited by metallic streak artifact. Prior left frontal craniotomy. Probable julio cesar hole defect within the right frontal calvarium with linear gliosis extending to the right 3rd ventricle, compatible with prior shunt placement. Mild generalized cerebral volume loss with concordant prominence of the ventricles and subarachnoid spaces. No acute intracranial hemorrhage or herniation. 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 Moderate patchy supratentorial white matter hypodensities. Prior ocular lens replacements. Mild mucosal thickening of the right maxillary sinus. The visualized paranasal sinuses and mastoids are otherwise unremarkable. No acute calvarial fracture or scalp hematoma. CT/Brain/Head without Contrast IMPRESSION: No acute intracranial finding. Stable postoperative changes as described. Reading Location: [id number] CC: Dr. Jose Dodd DO; Dr. Ruddy Cooper MD ~ Showroom Salesperson: Signed [facility]06-10-2025 Telephone encounter Note* Telephone Encounter - Brigette Casanova MA - 10/05/2024 8:35 AM EDT Called daughter and went over SW note on 09/08 where she gave info for CC assessment. Advised if info taken misplaced can call [facility] and they can provide information on that since we do not order these Brigette Casanova MA [facility]06-10-2025 Miscellaneous Notes* Telephone Encounter - Brigette Casanova MA - 10/05/2024 8:35 AM EDT Called daughter and went over SW note on 09/08 where she gave info for CC assessment. Advised if info taken misplaced can call [facility] and they can provide information on that since we do not order these Brigette Casanova MA documented in this encounterMer[facility]05-28-[facility] History of Present illness Narrative* Mary Ann Castellon MA - 09/22/2024 2:30 PM EDT POPULATION HEALTH NAVIGATION OUTREACH Action/FYI Patient calling in asking to speak with Bradford Love CNP or for her cell number to call her directly. Advised patient I do not have direct contact information for PHYSICIAN ANESTHESIOLOGIST but can get a message over to her.Asked patient if there was something I could help with. Patient with questions about recent medication dose change. States received new Rx at last OV for Losartan 25 mg. Asking if she is supposed to take both the 50 mg and 25 mg together or just one of them. Upon chart review PHYSICIAN ANESTHESIOLOGIST decreased Losartan as BP readings have been [...] 22, 2024 2:30 PM documented in this encounterMer[facility]05-[facility] Discharge summary [facility] Medical Records Department [address] [place] [id number] Emergency Department Summary 09/08/24 MR#: [id number] Acct: [id number] Name: JUDI KRAUSE Rep #:[id number] : 1945 79 From: Yossi Heredia MD [...] She lives alone at home. Said she feltdizzy today worse with her headmovement. She does have a history of vertigo. Denies any headache orrecent head trauma. Recent CT was negative. Prior similar symptoms: Yes Recent Illness/Hospitalization: Yes [facility] Medical History Orthostatic hypotension Hoarseness History of [...] No vomiting or diarrhea. No melena. No headacheor chest pain. No abdominal pain. Constitutional Constitutional [...] Heart regular rhythm rate about 85. Normal sinusrhythm on the monitor. Chest wall ribs nontender. Abdomen soft nontender. Back nontender. Moving all 4 extremities. 5 out of 5 hr specialist strength. Dorsi plantarflexion intact. No drift. Neurologic [...] to inspection, nondistended, normoactive bowel sounds, non-tender, non- distended and no masses Palpation: soft; Negative for [...] movement. May or may not be vertigo. Isnot impressive exam at this time. Her neurologic exam is normal. I do not think she needs brain imaging she just had that done. Thisdoes not impress me as a stroke. Screening labs to be obtained. Shewill be ambulated. She be given a dose of Antivert. Repeat exam at 12:38 AM patient doing well. Clinically feels well. Says her dizziness resolved. Exam normal. Repeat neurologic exam normal and unchanged. Nurses told me patient did ambulate and ambulated well in the hallway. She feels comfortable being discharged home. I will send a prescription infor Antivert for her. She is comfortable being [...] % (Auto) 56.0 Lymph % (Auto) 29.8 Edwards % (Auto) 7.8 Eos % (Auto) 5.0 [...] dizziness. Return if feeling worse. Print Language: Afghan Disposition Disposition: Home, Self Care What to do if you have Problems For any increased pain, shortness of breath, bleeding, nausea or vomiting, chestpain, or any unexpected problems, contact your Primary Care Provider. Call [facility] ([phone]) or report tothe closest Emergency Room. Call 911 if necessary. 09/09/24 004 Cosigner Signature (if applicable): CC: Dr. Ruddy Cooper MD ~ Signed [facility]05-14-2025 Discharge summary Author Yossi Heredia [facility] Note Date/Time September 09, 2024 12:48 am [facility] Medical Records Department [address] [place] [address] Emergency Department Summary 09/08/24 MR#: [id number] Acct: [id number] Name: JUDI KRAUSE Rep #:[id number] : 1945 79 From: Yossi Heredia MD [...] Prior similar symptoms: Yes Recent Illness/Hospitalization: Yes [facility] Medical History Orthostatic hypotension Hoarseness History of [...] all 4 extremities. 5 out of 5 hr specialist strength. Dorsi plantarflexion intact. No drift. Neurologic [...] % (Auto) 56.0 Lymph % (Auto) 29.8 Edwards % (Auto) 7.8 Eos % (Auto) 5.0 [...] dizziness. Return if feeling worse. Print Language: Afghan Disposition Disposition: Home, Self Care What to do if you have Problems For any increased pain, shortness of breath, bleeding, nausea or vomiting, chestpain, or any unexpected problems, contact your Primary Care Provider. Call [facility] ([phone]) or report to the closest Emergency Room. Call 911 if necessary. 09/09/24 0048 <Electronically signed by Yossi Heredia MD> Cosigner Signature (if applicable): CC: Dr. Ruddy Cooper MD ~ Signed [facility] Work Phone: 1(286) 568-816305-14-2025 Telephone encounter Note* Telephone Encounter - Salome Perez MSW - 09/08/2024 11:03 AM EDT Sw left patient message to call Sw back. Sw also reached out to patient daughter Sade. Sade notes that when patient was last in the hospital insurance would not cover for patient to go to rehab. Sade also notes that patient has not been open to going to long chain dyeing machine operator care center. Discussed Care [facility] Ad[facility] as an option for patient to reach out to in regards to home care, memory care, alf care planning. Sade and RACHID also discussed [facility] as options for [...] the locations for assessment. Sade thanked this Rachid for information and will reach out to Jonathon Rudolph to discuss care options. [facility]05-14-2025 Miscellaneous Notes* Telephone Encounter - Salome Perez MSW - 09/08/2024 11:03 AM EDT Sw left patient message to call Sw back. Sw also reached out to patient daughter Sade. Sade notes that when patient was last in the hospital insurance would not cover for patient to go to rehab. Sade also notes that patient has not been open to going to long chain dyeing machine operator care center. Discussed [facility]Shelly,[facility]ci Advisor as an option for patient to reach out to in regards to home care, memory care, alf care planning. Sade and RACHID also discussed [facility] and [facility] as options for [...] for information and will reach out to Shelly-Gabriella Rudolph to discuss care options. documented in this encounterMercy [facility]05-13-2025 Telephone encounter Note * Telephone Encounter - Ruddy Cooper MD - 09/07/2024 3:15 PM EDT Appointment Friday was canceled and rescheduled with Bradford today--patient seen. [facility]05-13-2025 Miscellaneous Notes* Telephone Encounter - Ruddy Cooper MD - 09/07/2024 3:15 PM EDT Appointment Friday was canceled and rescheduled with Bradford today--patient seen. * Telephone Encounter - Jeanne Iverson MA - 09/06/2024 7:52 AM EDT See pt's Daughter, Sade's update regarding pt. Pt has Hospital f/u appt scheduled today with you. Jeanne Iverson MA documented in this encounterMercy Health [facility]05-13-2025 Instructions* Patient Instructions* Bradford Love APRN.CNS - 09/07/2024 2:31 PM EDT I recommend staying with someone for a while for now due to your frequent falls and possible memoryproblems. [facility] pressure [facility]. Stop taking losartan 50 mg and start taking losartan 25 mg daily. Do not start or resume taking the quetiapine (the Q medication) until you have been evaluated by a box nailer per your preference. A driving evaluation has [...] ensure yoursafety at home. documented in this encounterMercy Health [facility]05-13-2025 History of Present illness Narrative* Bradford [...] Neuropathy, Without Long-Term Current Use of Insulin ([facility]) History of Cva (Cerebrovascular Accident) [...] discharge follow-up visit. She was seen at [facility] August 25 through August 30, 2024 [...] the patient's daughter who is power of claims attorney to review her current status. Daughter [...] placement was being considered by her daughter, jamil BELLO. She declined home health care at discharge. Presents today noting that she drove to her appointment today. Wanted her daughter Pierce to listen in on phone for visit which was done. Living situation: reports living at home alone Assistance: states son comes over whenever she needs him, lives in [place]. She also has a friendwith a multimedia production assistant job that cn come over to help at times Falls: report none since discharge Tushar Krause is local son. Eve. . No complaints of UTI symptoms, states [...] discharge. - Living alone; son lives in [place], but Judi prefers to stay at her [...] score (Natividad DK, et al., 2019) is: 30.8% Values used [...] Abs Lymph 1.00 - 4.00 k/uL 2.34 Edwards% % 8.6 Abs Edwards <0.87 k/uL 0.71 Eosin% % 3.3 Abs [...] time - Referred to Dr. Meyer, a box nailer, for further evaluation and management of dementia and behavioral disturbances. Declined to schedule at this time. - Discussed the importance of having someone stay with the patient temporarily to monitor for fallsand ensure safety. - Recommended holding off on quetiapine until evaluation by box nailer. - Advised family to consider assisted living or home care services to ensure patient safety. Judi Krause declined [facility] at this time 3. Failure to thrive [...] dosage by half; new prescription sent to [facility].. 5. Urinary tract infection without hematuria, [...] Level: 4 - Moderate documented in this encounterMercy Health [facility]05-12-2025 Telephone encounter Note * Telephone Encounter - Jeanne Iverson MA - 09/06/2024 7:52 AM EDT See pt's Daughter, Sade's update regarding pt. Pt has Hospital f/u appt scheduled today with you. Jeanne Iverson MA [facility]05-07-2025 History of Present illness Narrative* Lamar De Leon, LAURITA - 09/01/2024 2:17 PM EDT PRIMARY CARE [...] with PCP --END CALL documented in this encounterMercy Health [facility]05-07-2025 History of Present illness Narrative* Jocelyn Hudson MA - 09/01/2024 9:38 AM EDT POPULATION HEALTH NAVIGATION OUTREACH Action/FYI Community Monitoring Navigation Pool/TCM TCM eligible through 09/13/2024 Pt discharged from [facility] on 08/30/2024 Admitted for: Fall, Failure to [...] Scheduled Hematology Patient reports going to outside [facility] for Dilated Retinal Exam Reason for Outreach [...] Medium risk 10-14% Specialty Scheduling 09/06/2024 in [facility] with RUDDY COOPER - Hospital Follow Up/TCM eligible through 09/13/2024- HCC Gap Closure , Pt discharged from [facility] on 08/30/2024, Admitted for: Fall, Failure tothrive , Highest Readmission Risk Score: N/A 09/14/2024 in [facility] with RAPHAEL PERDOMO - 6 MO OV 12/06/2024 in [facility] with [place] [facility] - 2024 Medicare Wellness Z00.00/HCC Gap Closure 01/06/2025 in RADIO MAMMO [facility] with SCREEN MAMMO [facility] - Encounter for screening mammogram for breast cancer [Z12.31] 03/01/[address]AN [facility] with CT [facility] (I-STAT) - Dx: Nonruptured cerebral aneurysm [...] ICA, cavernous outpouching 03/08/2025 in [facility] with MELANI ZUNIGA - Residual Aneurysm, New Consult In Person Navigation Signature: Jocelyn Hudson MA September 01, 2024 9:38 AM * Lamar De Leon RN - 09/01/2024 9:01 AM EDT Transition Care Management (TCM) Initial Outreach PCP Update / Actionable Items Pharmacy Update / Actionable Items [facility] for falls and failure [...] TCM Home Visit Referral Source of Stratification: TCM HUB Hospital Admission Status: Discharged Readmission Risk Score: na Patient's zip code: Is zip code within program service area: Patient meets program referral criteria: No Patient does not qualify for High Risk TCM Home Visit program due to: Readmission Risk Score does not meet criteria Disposition: Patient does not qualify for HRTIC, will provide TCM outreach follow-up for 30-days Patient Source: [facility] ([facility]) Discharge Outreach Summary: Feels much better at home. [place] she did not get quality care at [...] contact PCP or H@H Patient discharged from [place] [facility] Discharge date: 08/30/24 Admitted for: Fall, Failure to thrive Readmission Risk: n/a Value-Based Contract: Moriah OLIVERA Contact: Contact made with patient: Yes Hi, my name is Lamar De Leon RN and I am calling from the [facility] on behalf of your Primary Care [...] further. Routed to RX 4C Medication Question ([id number]) and indicate in Pharmacy Box Medication Review: Declined at this time per patient preference Pt confused about medication prescribed at [facility] hospital discharge Pt agreed to speak with [...] I will send your request to a outpatient scheduler who will contact and assist you [...] 01, 2024 9:03 AM documented in this encounterMer[facility]05-[facility]-2025 [facility] Medical Records Department [address] [place] [address] Discharge Summary 08/30/24 1406 MR#: [id number] Acct: [id number] Name: JUDI KRAUSE Rep #: [id number] : 1945 79 From: Jose Mariee DO PCP: Dr. Ruddy Cooper MD Status:ADM IN Location: [place] [id number] Providers Date of Admission: 08/25/24 Primary Care [...] Plan is for the patient go to longterm facility but during the course of her [...] her. The patient's son who resides in [place] was out of the country and so social work to speak with the patient's daughters and since she was walking around she well she would not qualify to go to a longterm facility so the plan is for her [...] Care Charges/Coding Visit Charges Inpatient E M: 45129 Disch Hosp >30min 08/30/24 1412 Cosigner Signature (if applicable): CC: Dr. Jose Mariee DO; Dr. Ruddy Cooper MD [facility] Telephone encounter Note* Telephone Encounter - Raphael Perdomo APRN.CNP - 08/26/2024 8:22 AM EDT Noted. Sorry to hear that. Raphael Perdomo APRN.CNP [facility]05-01-2025 Miscellaneous Notes* Telephone Encounter - Raphael Perdomo APRN.CNP - 08/26/2024 8:22 AM EDT Noted. Sorry to hear that. Raphael Perdomo APRN.DESIRAE * Telephone Encounter - Isha Kaur - 08/26/2024 8:12 AM EDT Patient's daughter called to cancel 5 appointment with Raphael due to falling last night. Currentlyin [facility]. Isha Kaur documented in this encounterMercy [facility]05-01-2025 Telephone encounter Note * Telephone Encounter - Isha Kaur - 08/26/2024 8:12 AM EDT Patient's daughter called to cancel 5 appointment with Raphael due to falling last night. Currentlyin the [facility]. Isha Kaur [facility]05-01-2025 Evaluation note* Diagnosis Onset Date Resolution Status Admit Date Adult failure to thrive resolved A pril 2024 11:50pm Multiple falls resolved July 11:50pm Physical debility resolved July 292024 11:50pm [facility] Work Phone: 1(401) 729-729005-01-2025 Evaluation note* Diagnosis Onset Date Resolution Status Admit Date Adult failure to thrive resolved A pril 2024 11:50pm Multiple falls resolved July 11:50pm Physical debility resolved July 292024 11:50pm Confusion acute October 10 4:33pm Lactic acidosis acute September 4:33pm Urinary tract infection acute J une 2024 4:33pm [facility] Work Phone: 1(326) 810-579505-01-2025 Evaluation note* Diagnosis Onset Date Resolution Status Admit Date Adult failure to thrive resolved A pril 2024 11:50pm Multiple falls resolved July 11:50pm Physical debility resolved July 292024 11:50pm Confusion acute October 10 4:33pm Lactic acidosis acute September 4:33pm Urinary tract infection acute J 2024 4:33pm Generalized weakness acute October 19, 2024 7:08pm [facility] Work Phone: 1(655) 617-236704-29-2025 Telephone encounter Note* Telephone Encounter - Sarah Bain RN - 08/24/2024 12:58 PM EDT Daughter inquiring about lab results. Lipid panel with multiple elevated values. Have you received any outside charts for her. I have not seen anything, but someone else could have put on your desk without putting in an encounter. [facility]04-29-2025 Miscellaneous Notes* Telephone Encounter - Sarah Bain RN - 08/24/2024 12:58 PM EDT Daughter inquiring about lab results. Lipid panel with multiple elevated values. Have you received any outside charts for her. I have not seen anything, but someone else could have put on your desk without putting in an encounter. documented in this encounterMercy Health [facility]iance Hospital04-29-2025 Telephone encounter Note * Telephone Encounter - Elma Fuchs APRN.CNP - 08/24/2024 7:29 AM EDT See results message [facility]04-29-2025 Miscellaneous Notes* Telephone Encounter - Elma Fuchs APRN.CNP - 08/24/2024 7:29 AM EDT See results message documented in this encounterMercy Health Def[facility] Hospital04-22-2025 Telephone encounter Note * Telephone Encounter [...] Lamar Sierra August 17, 2024 4:47 PM [facility]04-22-2025 Miscellaneous Notes* Telephone Encounter - Lamar [...] 17, 2024 4:47 PM documented in this encounterMercy Health Def[facility] Hospital04-22-2025 Telephone encounter Note * Telephone Encounter - Bradford Love APRN.EXPLORATION DRILLER - 08/17/2024 11:22 AM EDT ok [facility]04-22-2025 Miscellaneous Notes* Telephone Encounter - Bradford Love APRN.CNS - 08/17/2024 11:22 AM EDT ok * Telephone Encounter - Joanna Templeton LPN - 08/17/2024 11:17 AM EDT [facility] calling, patient is there for blood work. Requesting a urine test, she had one done a week ago for UTI, is requesting a repeat lab to see if it has cleared up. Please review and advise. documented in this encounterMercy Health Defiance Hospital04-22-2025 Telephone encounter Note * Telephone Encounter - Joanna Templeton LPN - 08/17/2024 11:17 AM EDT [facility] calling, patient is there for blood work. Requesting a urine test, she had one done a week ago for UTI, is requesting a repeat lab to see if it has cleared up. Please review and advise. [facility]04-21-2025 Instructions* Patient Instructions* Khris Salinas MD - 08/16/2024 1:28 PM EDT Complete a fasting blood test tomorrow morning at a local [facility] facility in [place] (plan for an 8-10 hour fast before the test) to help assess potential contributors to your neuropathy. Sign the release form provided by our team so we can obtain your recent EMG report from Dr. Mcguire at [facility] (from July 20) for review. Try to avoid leaning on your elbows--especially when sitting in your recliner--to reduce pressure on your ulnar nerve and help lessen hand weakness. Consider purchasing slip-on sneakers (such as those from [employer] or [employer]) that are designed for easier entry and better support to improve mobility. documented in this encounterMercy Health Defiance Hospital04-21-2025 History of Present illness Narrative* Khris Salinas MD - 08/16/2024 12:46 PM EDT [facility] New Patient Evaluation Consulting Provider: Melani Zuniga [address] [facility] [id number] Individuals who were included in, or assisted with the encounter were: Judijai Salinas MD Chief Complaint/Issues: Judi Krause is a 79 year old female seen in the [facility] for: Neuropathy HPI: Judi is a [...] take regular pa in medication but uses bluf-feq-kqdafaa pain relievers as needed, particularly at night to aid sleep. 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 She retired about five to six years ago. She does not endorse significantneck pain, reporting it occurs about once a month. She was recently evaluated by Dr. Mcguire at the [facility], who performed an EMG and [...] help. She lives alone in a small condo but has neighbors nearby. Her medical history is significant for diabetes, diagnosed a few months ago, with an A1c of 6.8% [id number]. She also has a history of four aneurysms, the first of which was coiled in 2003 at the [facility]. She underwent additional procedures in 2004 [...] 5 5 Wrist extension 5 5 Finger flexion/hr specialist 5 5 Finger pollicis longus 4+ Flexor [...] - Recent EMG performed on 07/20 at [facility]; will obtain records for review. - Diabetes mellitus type 2 is a known contributing factor; A1c has improved over time. - Ordered comprehensive fasting blood work to evaluate for additional causes of neuropathy, including vitamin deficiencies and autoimmune processes. - Advised patient to present to any [facility] facility for blood draw after an [...] lesions. - Referral to Dr. Zapata in [place] or [place] for further evaluation and management if needed. Recording using [employer] software for draft documentation of the visit was discussed with the patient/authorized small business representative; all questions welcomed and answered. Patient/authorized small business representative agreed to proceed Data Review Objective [...] HISTORY Procedure Laterality Date ABDOMINAL SURGERY HX 2003 tummy tuck ANESTHESIA HERNIA REPAIR LOWER ABDOMEN [...] Right OPEN TREATMENT,TRIMALLEOLAR ANKLE FRACTURE Right 05/29/2018 [facility] PICC LINE INSERT/CONSULT 01/23/2021 PICC LINE [...] 6.5 (H) 4.3 - 5.6 % Final [place] Diabetes Association guidelines indicate that patients with HgbA1c in the range 5.7-6.4% are at increased risk for development of diabetes, and intervention by lifestyle modification may be beneficial. HgbA1c greater or equal to 6.5% is considered diagnostic of diabetes. Estimated Average Glucose 06/18/2024 140 mg/dL Final eAG: (Estimated average glucose) is a calculated value from HgbA1c and is small business representative of the average blood glucose level in the last 2-3 month period. Outside Data/Labs: I spent a total of 60 minutes on the date of the service which included preparing to see the patient, nckb-vd-cgtl patient care, completing clinical documentation, obtaining and/or reviewing separately obtained history, performing a medically appropriate examination, counseling and educating the pat ient/family/caregiver, and ordering medications, tests, or procedures. Khris Salinas MD * Khris Salinas MD - 08/16/2024 12:41 PM EDT [facility] New Patient Evaluation Consulting Provider: Melani Zuniga [facility] [facility] [id number] Individuals who were included in, or assisted with the encounter were: Judi Chevy Toya Salinas MD Chief Complaint/Issues: Judi Krause is a 79 year old female seen in the [facility] for: Neuropathy HPI: Judi is a [...] take regular pa in medication but uses teih-rvn-oznjgcz pain relievers as needed, particularly at night to aid sleep. 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 She retired about five to six years ago. She does not endorse significantneck pain, reporting it occurs about once a month. She was recently evaluated by Dr. Mcguire at the [facility], who performed an EMG and [...] help. She [place] alone in [place] but has neighbors nearby. Her medical history is significant for diabetes, diagnosed a few months ago, with an A1c of 6.8% [id number]. She also has a history of four aneurysms, the first of which was coiled in 2003 at the [facility]. She underwent additional procedures in 2004 [...] - Recent EMG performed on 07/20 at [facility]; will obtain records for review. - Diabetes mellitus type 2 is a known contributing factor; A1c has improved over time. - Ordered comprehensive fasting blood work to evaluate for additional causes of neuropathy, including vitamin deficiencies and autoimmune processes. - Advised patient to present to any [facility] facility for blood draw after an [...] lesions. - Referral to Dr. Zapata in [place] or [place] for further evaluation and management if needed. Recording using [employer] software for draft documentation of the visit was discussed with the patient/authorized small business representative; all questions welcomed and answered. Patient/authorized small business representative agreed to proceed Data Review Objective [...] Neuropathy, Without Long-Term Current Use of Insulin ([facility]) History of Cva (Cerebrovascular Accident) [...] complication, without long-term current use of insulin ([facility]) Unspecified constipation Unspecified essential hypertension Varicose veins [...] Right OPEN TREATMENT,TRIMALLEOLAR ANKLE FRACTURE Right 05/29/2018 [facility] PICC LINE INSERT/CONSULT 01/23/2021 PICC LINE [...] 6.5 (H) 4.3 - 5.6 % Final [place] Diabetes Association guidelines indicate that patients with HgbA1c in the range 5.7-6.4% are at increased risk for development of diabetes, and intervention by lifestyle modification may be beneficial. HgbA1c greater or equal to 6.5% is considered diagnostic of diabetes. Estimated Average Glucose 06/18/2024 140 mg/dL Final eAG: (Estimated average glucose) is a calculated value from HgbA1c and is small business representative of the average blood glucose level in the last 2-3 month period. Outside Data/Labs: I spent a total of 60 minutes on the date of the service which included preparing to see the patient, kawt-vz-[id number] patient care, completing clinical documentation, obtaining and/or reviewing separately obtained history, performing a medically appropriate examination, counseling and educating the pat ient/family/caregiver, and ordering medications, tests, or procedures. Khris Salinas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 Hospital08-27-2024 Telephone encounter Note * Telephone Encounter - Angélica Chaney - 12/23/2023 4:59 PM EDT Patient returned call, but Group Tester was not available. Please return call to patient. Angélica Chaney [facility]08-27-2024 Telephone encounter Note* Telephone Encounter - Malu Calhoun RN - 12/23/2023 3:10 PM EDT De Care Coordination FOLLOW-UP NOTE Called patient, no answer, left a VM requesting a call back from patient. Care Coordination Plan: see above Malu Calhoun RN December 23, 2023 [facility]08-27-2024 Telephone encounter Note* Telephone Encounter - [...] had not started metformin yet. Raphael Perdomo APRN.PHYSICIAN ANESTHESIOLOGIST [facility]08-27-2024 Telephone encounter Note* Telephone Encounter - Bradford Love APRN.CNS - 12/23/2023 2:13 PM EDT Noted. [facility]08-27-2024 Miscellaneous Notes* Telephone Encounter - Bradford Love APRN.CNS - 12/23/2023 2:13 PM EDT Noted. * Telephone Encounter - Salome Perez MSW - 12/23/2023 1:56 PM EDT Rachid called and spoke with patient daughter Sade. Rachid noted that she has not found Medicare to pay for medical alert button. Medicaid often times will if someone is on Passport/Medicaid Waiver program. Rachid noted [facility] [employer] has listing of medical alert button options. Rachid provided daughter with [facility] [employer] number [phone] to call and see about medical alert button listing. Sade thanked Rachid for the call and notes that she will reach out to [facility] [employer]. * Telephone Encounter - Birgit Gonzalez LPN - 12/23/2023 9:50 AM EDT Daughter notified and routing this to RACHID Mcmahon to call daughter to give help on how to order and where to go for this. Birgit Gonzalez LPN * Telephone Encounter - Bradford Love APRN.CNS [...] daughter. Birgit Gonzalez LPN documented in this encounterMercy Health Defiance Hospital08-27-2024 Telephone encounter Note * Telephone Encounter - Salome Perez MSW - 12/23/2023 1:56 PM EDT Rachid called and spoke with patient daughter Sade. Sw noted that she has not found Medicare to pay for medical alert button. Medicaid often times will if someone is on Passport/Medicaid Waiver program. Rachid noted [facility] [facility] [employer] has listing of medical alert button options. Sw provided daughter with [facility] [facility] [employer] number [phone] to call and see about medical alert button listing. Sade thanked Rachid for the call and notes that she will reach out to [employer] [place]. [facility]08-27-[facility] Telephone encounter Note* Telephone Encounter - Malu Calhoun RN - 12/23/2023 9:53 AM EDT Care Coordination Triage Note [facility] Situation: Patient reports Other emesis, falls, lightheadedness [...] stomach. Recommendations: Per RNCC, will speak to Raphael. Patient is asking if she should resume the medication or continue holding. Malu Calhoun RN December 23, 2023 9:53 AM [facility]08-27-2024 Telephone encounter Note* Telephone Encounter - Birgit Gonzalez LPN - 12/23/2023 9:50 AM EDT Daughter notified and routing this to RACHID Mcmahon to call daughter to give help on how to order and where to go for this. Birgit Gonzalez LPN [facility]08-26-2024 Telephone encounter Note* Telephone Encounter - [...] starting any new medications. Caryn Hernandez LPN [facility]08-26-2024 Telephone encounter Note* Telephone Encounter - Jolene SierraLiliane - 12/22/2023 12:45 PM EDT Patient called stating that she quit taking Aromasin 8 days ago due to vomiting. She read that she is to take the medication the same time every day and states she was not. She is asking if this is possibly what was making her sick. [facility] Work Phone: 1(246) 747-941108-26-2024 Telephone encounter Note* Telephone Encounter - Bradford Love APRN.CNS - 12/22/2023 12:26 PM EDT Do not think these are covered but she can try. Order in. [facility]08-26-2024 Telephone encounter Note* Telephone Encounter - [...] this. Please advise daughter. Birgit Gonzalez LPN [facility]08-23-2024 Telephone encounter Note* Telephone Encounter - Bradford Love APRN.CNS - 12/19/2023 11:03 AM EDT note below. [facility]08-23-2024 Miscellaneous Notes* Telephone Encounter - Bradford [...] advise, Angélica Parkinson RN documented in this encounterMercy Health Defiance Hospital08-23-2024 History of Present illness Narrative* Bradford Love APRN.CNS - 12/19/2023 11:00 AM EDT SUBJECTIVE: Diabetic Foot Exam Never done DTaP,Tdap,Td Vaccine(1 - Tdap) Never done Shingrix Vaccine(1 of 2) Never done RSV Vaccine(1 - 1-dose 60+ series) Never done Pneumococcal Vaccine: 65+(2 of 2 - PCV) due on 05/04/2015 Covid-19 Vaccine(2022- season) due on 12/27/2022 MIMI Krause is a 78 year old female. [...] oncology providers know. She is [facility] by [facility] hematology oncology for breast cancer. Has been [...] daily. (Patient not taking: Reported on 09/05/2023) gibg-ibyxx-qr5-lzm-eqr-mmon-st (GLUCOSAMINE CHONDROITIN PLUS) [id number] mg cap Take 1 capsule by mouth [...] score (Natividad CHAVIRA, et al., 2019) is: 36.9% Values used [...] Abs Lymph 1.00 - 4.00 k/uL 1.60 Edwards% % 8.3 Abs Edwards <0.87 k/uL 0.63 Eosin% % 2.8 Abs [...] V80.2, ICD10: Z13.5 She is followed by industrial [facility]. 5. Encounter for immunization - ICD9: V03.89, [...] life alert or similar. Message sent via [employer]. Keep appointment with PCP in February. Will route chart to hematology oncology so they are aware not currently taking Aromasin. Bradford Love APRN.EXPLORATION DRILLER Medical Decision Making: Problems: Moderate: New problem with uncertain prognosis and 2+ stable chronic illnesses Data: Unique test result(s) reviewed: 3+ Unique test(s) ordered: 1 Risk: Moderate: Drug management Medical Decision Making Level: 4 - Moderate documented in this encounterMercy Health [facility] Hospital08-23-2024 Telephone encounter Note * Telephone Encounter [...] Please review and advise, Angélica Parkinson RN [facility]08-20-2024 History of Present illness Narrative* Charleen [...] decreased fall risk. -- MET, 11 reps Williamson in home exercise program including cardiovascular exercise. [...] Patient to be seen for Gait Training (86570), Self-longterm management (01532), Therapeutic activities (65112), Manual therapy (92993), Neuromuscular re- education (65669), Therapeutic exercise (64547) PLAN FOR NEXT VISIT: amb in // [...] Total: 15 TREATMENT: Therapeutic Exercise: 1: seated EndoChoicefit nustep seat 16, level 2, 5 min [...] 1828 Charleen Rocha PT documented in this encounterMercy Health Defiance Hospital08-12-2024 History of Present illness Narrative* Charleen Rocha PT - 12/08/2023 12:29 PM EDT Episode [...] 1300 Charleen Rocha PT documented in this encounterMercy Health Defiance Hospital07-31-2024 History of Present illness Narrative* Charleen [...] decreased fall risk. -- MET, 11 reps Williamson in home exercise program including cardiovascular exercise. [...] Patient to be seen for Gait Training (68470), Self-longterm management (50512), Therapeutic activities (17998), Manual therapy (82519), Neuromuscular re- education (80211), Therapeutic exercise (83654) PLAN FOR NEXT VISIT: Pt. requests to [...] 1224 Charleen Rocha PT documented in this encounterMer[facility]07-30-2024 Telephone encounter Note * Telephone Encounter - Christa Sandoval RN - 11/25/2023 4:05 PM EDT Patient returned call and given provider's message below. Patient states she will try the nortriptyline 100 gm at bedtime. Zaid Sandoval RN [facility]07-30-[facility]24 Miscellaneous Notes* Telephone Encounter - Christa [...] advise. Marylin Camacho LPN documented in this encounterMercy Health Defiance Hospital07-30-2024 Telephone encounter Note * Telephone Encounter - Joanna Templeton LPN - 11/25/2023 12:09 PM EDT Left message for patient to return call [facility]07-30-[facility] Telephone encounter Note* Telephone Encounter - Bradford Love APRN.CNS - 11/25/2023 11:46 AM EDT If she is feeling well with the nortriptyline 75 mg we can try increasing to 100 mg at bedtime. Sheshould let us know if she does not feel well with the change and return back to 75 mg dosing. [facility]07-[facility] Telephone encounter Note* Telephone Encounter - Marylin Camacho LPN - 11/25/2023 10:16 AM EDT Last OV: 09/08/23 Pt reports provider increased nortriptyline to 75 mg and that has helped her hands some. Pt is asking if medication can be increased to 100 mg to see if that would help more. Please review and advise. Marylin Camacho LPN [facility]07-29-[facility]24 History of Present illness Narrative* Charleen [...] amb in her neighborhood or at the [facility] with AD for 10-15 minutes Functional [...] 1253 Charleen Rocha PT documented in this encounterMercy Health Defiance [facility]07-24-2024 History of Present illness Narrative* Charleen [...] 1240 Session Stop Time : 1320 Charleen Rocha PT documented in this encounterMercy Health Defiance Hospital07-22-2024 History of Present illness Narrative* Charleen Rocha PT - 11/17/2023 12:16 PM EDT Episode [...] amb in her neighborhood or at the [facility] with AD for 10-15 minutes Functional [...] and tactile cueing. Patient education as noted. Self-Prison Management: 1: discussed that fear of falling [...] 1300 Charleen Rocha PT documented in this encounterMercy Health Defiance Hospital07-15-2024 History of Present illness Narrative* Jin [...] : 1230 Session Stop Time : 1311 ARA Ba, PT, DPT. documented in this encounterMercy Health Defiance Hospital07-11-2024 History of Present illness Narrative* Charleen [...] 1140 Charleen Rocha PT documented in this encounterMercy Health Defiance Hospital07-08-2024 History of Present illness Narrative* Charleen Rocha, PT - 11/03/2023 12:35 PM EDT Images from the original note were not included. Episode Visit Count: 6 Therapist That Will Accept/Oversee The Plan Of Care: Charleen Rocha Start of Care Date: 09/29/23 Onset Date: 01/22/21 Plan of Care Certification Date: 11/03/23 Next Certification Due Date: 12/15/23 [facility]AB[facility] AND SPORTS THERAPY PHYSICAL THERAPY PROGRESS REPORT PLAN OF CARE UPDATE: Assessment: Judi J Krause demonstrates improvements in rising from a [...] decreased fall risk. -- PROGRESSING, 9 reps Williamson in home exercise program including cardiovascular exercise. [...] Patient to be seen for Gait Training (09225), Self-longterm management (91713), Therapeutic activities (00623), Manual therapy (77583), Neuromuscular re- education (15449), Therapeutic exercise (73545) PLAN FOR NEXT VISIT: continue stepping over [...] 1308 Charleen Rocha PT documented in this encounterMercy Health [facility] Hospital07-03-2024 History of Present illness Narrative* Charleen Rocha, PT - 10/29/2023 1:30 PM EDT Episode [...] amb in her neighborhood or at the [facility] with AD for 10-15 minutes Functional [...] 6x6 obstacles with SC 6x 20' with HOUSEKEEPER CAREGIVER and SC (attempted with just SC and [...] 1322 Session Stop Time : 1400 Charleen Rocah PT documented in this encounterMercy Health Defiance Hospital07-01-2024 History of Present illness Narrative* Charleen Rocha PT - 10/27/2023 1:13 PM EDT Episode [...] 1351 Charleen Rocha PT documented in this encounterMercy Health Defiance Hospital06-27-2024 Telephone encounter Note * Telephone Encounter [...] nap I've been fine. Paty Jason RN [facility]06-27-2024 Miscellaneous Notes* Telephone Encounter - Paty [...] has not spoken to her mother todrew streeter. Explained that it was documented that her mother was SOB. Daughter states she is always SOB. Dhecan hardly make it from her care to the store without extreme shortness of breath. Pt was last seenon 09/08/23. Let daughter know that pt did not answer the phone when attempted to call and check on pt. Sade states she lives in [place] but her brother lives in [place]. Sade will continue to try and call [...] car. Christie Deleon LPN documented in this encounterMercy Health Defiance Hospital06-27-2024 Telephone encounter Note * Telephone Encounter [...] on pt. Sade states she lives in [place] but her brother lives in [place]. Sade will continue to try and call her mother and contact her brother. She will call us back or have the pt call us. Explained to daughter that we can have the police go do a welfare check on her. She states she will get back to us. [facility] Telephone encounter Note* Telephone Encounter - [...] Patient walk to car. Christie Deleon LPN [facility] Work Phone: [phone] History of Present illness Narrative* Charleen Rocha PT - 10/22/2023 12:24 PM EDT Pt. reports she feels very SOB upon entering clinic. Presents without SC. Carries a heavy bag. [id number] and instructed to take a seated rest. [...] and continues to refuse for PT or MULE RIDER to call for assistance or medical attention. PT explains the concern with pt.Driving herself home and the possibility that she would have difficulty getting into her house safely. MULE RIDER and PT assist pt. to w/c. Charleen Rocha PT, DPT documented in this encounterMercy Health Defiance Hospital06-24-2024 History of Present illness Narrative* Charleen Rocha, PT - 10/20/2023 3:54 PM EDT Program_ID:[id number] Access Code: [email or web address] URL: [email or web address] Date: 10-20-2023 Prepared By: Charleen Rocha Program Notes Exercises - Seated Transversus Abdominis Bracing with PLB - 1 x daily - 7 x weekly - 4 sets - 10 reps * Charleen Rocha, PT - 10/20/2023 3:16 PM EDT Episode [...] amb in her neighborhood or at the [facility] with AD for 10-15 minutes Pain: [...] % TREATMENT: Therapeutic Exercise: 1: *Access Code: [email or web address] URL: [email or web address] Date: 10/20/2023 Prepared by: Charleen Maher'Casper Exercises - Seated Transversus Abdominis Bracing with [...] belt and SC. Patient education as noted. Self-Prison Management: 1: discussed at length the importance [...] Time (minutes): 40 Session Start Time : 1515 Session Stop Time : 1556 Charleen Rocha PT documented in this encounterMercy Health Defiance Hospital06-24-2024 NoteHNO ID: [id number] Author: CHARLEEN ROCHA PT Service: ? Author [...] amb in her neighborhood or at the [facility] with AD for 10-15 minutes Pain: [...] % TREATMENT: Therapeutic Exercise: 1: *Access Code: [email or web address] URL: [email or web address] Date: 10/20/2023 Prepared by: Charleen Rocha Exercises [...] belt and SC. Patient education as noted. Self-Prison Management: 1: discussed at length the importance [...] Time : 1516 Session Stop Time : 155 Charleen Rocha, [facility]06-18-2024 History of Present illness Narrative* Angella Murray RT(R) - 10/14/2023 12:30 PM EDT [...] PATIENT PRESENTS WITH AN IMPLANTABLE OR ATTACHED COURT CLERK: No RADIOLOGY DEPARTMENT: General X-ray: Exam(s) Completed: Lower Extremity X- Ray(s): Ankle, Left and Foot, Left PERIPHERAL IV DATA: Not applicable SIGNED BY: RT Marco(R) October 14, 2023 12:15 PM documented in this encounterMercy Health Defiance Hospital06-18-2024 History of Present illness Narrative* Ruiz Serrato APRN.PHYSICIAN ANESTHESIOLOGIST - 10/14/2023 12:05 PM EDT Subjective HPI [...] Bilateral 01/2020 re-excision of margins COIL, 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 kxne-vtbex-co3-itz-web-bobw-st (GLUCOSAMINE CHONDROITIN PLUS) [id number] mg cap Take 1 capsule by mouth [...] of care. This note was generated using Advitech software. It may contain errors in wording, punctuation, or spelling. Ruiz Serrato APRN.PHYSICIAN ANESTHESIOLOGIST documented in this encounterMercy Health Defiance Hospital06-18-2024 Telephone encounter Note * Telephone Encounter - Paola Duff LPN - 10/14/2023 7:26 AM EDT Encounter routed to [facility] to assist patient in scheduling. [facility]06-18-[facility]24 Miscellaneous Notes* Telephone Encounter - Paola [...] pt. Please send in new orders to [facility]. Birgit Gonzalez LPN * Telephone Encounter - Ruddy Cooper MD - 10/09/2023 5:14 PM EDT Patient already has a PT order according to [facility]. Does she need another order? * [...] on CT abd/pel results. documented in this encounterMercy Health Defiance Hospital06-17-2024 Telephone encounter Note * Telephone Encounter - Ruddy Cooper MD - 10/13/2023 4:56 PM EDT Filed order for PT [facility]06-14-2024 Telephone encounter Note* Telephone Encounter - Birgit Gonzalez LPN - 10/10/2023 9:31 AM EDT No orders showing for the PSRs to schedule pt. Please send in new orders to [facility]. Birgit Gonzalez LPN [facility]06-13-2024 Telephone encounter Note* Telephone Encounter - Ruddy Cooper MD - 10/09/2023 5:14 PM EDT Patient already has a PT order according to [facility]. Does she need another order? [facility]06-07-[facility] Telephone encounter Note* Telephone Encounter - Paola Duff LPN - 10/03/2023 11:15 AM EDT Patient notified of providers message and verbalized understanding. Patient would like to pursue PT. Please place order [facility]06-06-[facility] Telephone encounter Note* Telephone Encounter - [...] Consider Physical therapy for evaluation and treatment. [facility]06-06-[facility]24 Telephone encounter Note* Telephone Encounter - Genia Ackerman RN - 10/02/2023 4:28 PM EDT Patient asking pcp to review and advise on CT abd/pel results. [facility]06-03-[facility] History of Present illness Narrative* Charleen Rocha, PT - 09/29/2023 2:19 PM EDT Program_ID:[id number] Access Code: [email or web address] URL: [email or web address] Date: 09-29-2023 Prepared By: Charleen Rocha Program [...] 10 reps * Charleen Rocha PT - 09/29/2023 1:53 PM EDT Episode Visit Count: 1 Therapist That Will Accept/Oversee The Plan Of Care: Charleen BradlyMiguelCasper Start of Care Date: 09/29/23 Onset Date: [...] more repetitions to reflect decreased fall risk. Williamson in home exercise program including cardiovascular exercise. Patient will demonstrate independent and proper use of assisstive device to allow for improved walking quality and safety therefore reducing the risk of falls. Patient Goals: amb in her neighborhood or at the [facility] with AD for 10-15 minutes Planned Interventions, Frequency, and Duration: Current Frequency: 2x/week Duration: 6 weeks Total Number of Visits Planned: 12 Planned Treatment Interventions: Gait Training (06479), Self-longterm management (41911), Therapeutic activities (10764), Manual therapy (23600), Neuromuscular re-education (94986), Therapeutic exercise (51663) PLAN FOR NEXT VISIT: DGI and step [...] amb in her neighborhood or at the [facility] with AD for 10-15 minutes Functional [...] Demonstration TREATMENT: PT Treatment Interventions: Therapeutic Exercise, Self-Prison Management Evaluation Therapeutic Exercise: 1: *Access Code: [email or web address] URL: [email or web address] Date: 09/29/2023 Prepared by: Charleen Santos Exercises [...] and function . Patient education as noted. Self-Prison Management: 1: suggestd use of cane 2: [...] 1433 Charleen Rocha PT documented in this encounterMercy Health Defiance Hospital05-31-2024 History of Present illness Narrative* Nelly Pacheco RT(R) - 09/26/2023 11:20 AM EDT Radiology Service [...] PATIENT PRESENTS WITH AN IMPLANTABLE OR ATTACHED COURT CLERK: No RADIOLOGY DEPARTMENT: CT; Exam(s) Completed: Abdomen/Pelvis PERIPHERAL IV DATA: Not applicable SIGNED BY: RT Julianna(R) September 26, 2023 4:16 PM documented in this encounterMercy Health Defiance Hospital05-20-2024 Miscellaneous Notes* Telephone Encounter - Bradford Love APRN.CNS - 09/15/2023 2:45 PM EDT ok * [...] lisinopril from her list. documented in this encounterMercy Health Defiance Hospital05-20-2024 Telephone encounter Note * Telephone Encounter - Bradford Love APRN.CNS - 09/15/2023 2:45 PM EDT ok [facility]05-20-2024 Telephone encounter Note* Telephone Encounter - [...] and please remove lisinopril from her list. [facility]05-15-[facility] History of Present illness Narrative* Raphael Perdomo APRN.PHYSICIAN ANESTHESIOLOGIST - 09/10/2023 1:26 PM EDT Chief Complaint [...] strongly ER+ in 99% of cells, strongly OH+ in 99% of cells, and HER2-negative (0 [...] started this yet. Her BS today is [id number]. Appetite:Eh. Wt. stable. Energy level:Fair. Denies fevers [...] re- excision. It's ER positive (99%, strong), OH positive (99%, strong) and Her2/maria a 0. [...] visit. Raphael Perdomo APRN.DESIRAE documented in this encounterMercy Health Defiance Hospital05-13-2024 Instructions* Patient Instructions* Bradford Love APRN.CNS [...] diarrhea with this medication. documented in this encounterMercy Health Defiance Hospital05-13-2024 History of Present illness Narrative* Bradford Love APRN.CNS - 09/08/2023 1:20 PM EDT SUBJECTIVE: Dilated Retinal Exam Never done Diabetic Foot Exam Never done DTaP,Tdap,Td Vaccine(1 - Tdap) Never done Shingrix Vaccine(1 of 2) Never done RSV Vaccine(1 - 1-dose 60+ series) Never done Pneumococcal Vaccine: 65+(2 of 2 - PCV) due on 05/04/2015 Covid-19 Vaccine(2022-24 season) due on 12/27/2022 Advance Directive Discussion due on 04/28/2023 MIMI Krause is a 78 year old female. [...] Neuropathy, Without Long-Term Current Use of Insulin ([facility]) History of Cva (Cerebrovascular Accident) [...] surgery was a tummy tuck completed at [facility] in [place]. She is followed by [facility] hematology oncology for breast cancer, last seen [...] Take 81 mg by mouth once daily. swpn-fksac-ks9-flt-gxl-txrm-st (GLUCOSAMINE CHONDROITIN PLUS) [id number] mg cap Take 1 capsule by mouth [...] PNEUMOCOCCAL VACCINE, 20 VALENT (PREVNAR 20) - [employer] COVID-19 VACCINE (2022- SEASON) AGE 12+ YR [...] or diarrhea with this medication. Bradford Love APRN.VIOLETTE Medical Decision Making: Problems: Moderate: New problem with uncertain prognosis and 2+ stable chronic illnesses Data: Unique test(s) ordered: 1 Risk: Moderate: Drug management Medical Decision Making Level: 4 - Moderate documented in this encounterMercy Health Defiance Hospital02-16-2024 Miscellaneous Notes* Telephone Encounter - Genia [...] pt. Birgit Gonzalez LPN documented in this encounterMercy Health Defiance Hospital01-29-2024 Instructions* Patient Instructions* Ruddy Cooper MD - 05/26/2023 4:55 PM EST Topical magnesium and oral magnesium can help with muscle cramping. Theraworx is one of the brands. Avoid bending from the back--bend from hips so not shortening the abdominal muscles. Do stretching exercises for abdominal muscles. documented in this encounterMercy Health Defiance Hospital01-29-2024 History of Present illness Narrative* Ruddy Cooper MD - 05/26/2023 4:06 PM EST This note was created using Codesionriter. Subjective Judi Krause is a 78 year [...] Take 100 mcg by mouth once daily. utpl-dvypl-wo7-mgc-kob-awke-st (GLUCOSAMINE CHONDROITIN PLUS) [id number] mg cap Take 1 capsule by mouth [...] the date of the service which included laed-ge-zbsm patient care, completing clinical documentation, obtaining and/or reviewing separately obtained history, performing a medically appropriate examination, counseling and educating the patient/family/caregiver, ordering medications, tests, or procedures, independently interpreting results (not separately reported), and communicating results to the patient/family/caregiver. Ruddy Cooper MD documented in this encounterMercy Health Defiance Hospital12-07-2023 History of Present illness Narrative* Sarah Lloyd LPN - 04/03/2023 2:04 PM EST Est. Pt. Discuss recent labs 6 month F/U Sarah Lloyd LPN * Raphael Perdomo APRN.PHYSICIAN ANESTHESIOLOGIST - 04/03/2023 1:45 PM EST Chief Complaint [...] strongly ER+ in 99% of cells, strongly OH+ in 99% of cells, and HER2-negative (0 [...] re- excision. It's ER positive (99%, strong), OH positive (99%, strong) and Her2/maria a 0. [...] visit. Raphael Perdomo APRN.DESIRAE documented in this encounterMercy Health Defiance Hospital11-14-2023 Miscellaneous Notes* Telephone Encounter - Melani [...] point. Melani Zuniga RN documented in this encounterMercy Health Defiance Hospital11-02-2023 History of Present illness Narrative* Julianne Longoria, RT(R) - 02/27/2023 11:20 AM EDT Radiology Service [...] gauge. RADIOLOGY DEPARTMENT: MR; Exam(s) Completed: Head: [place] [facility] [place] MRA SIGNATURE: RT Bridget(R) PATIENT NAME: Judi Krause DATE: February 27, 2023 TIME: 12:12 PM documented in this encounterMercy Health Defiance Hospital11-01-2023 Miscellaneous Notes* Telephone Encounter - Beronica Navarro - 02/26/2023 10:29 AM EDT Patient scheduled. Closing encounter. * Telephone Encounter - Kiana Mcpherson LPN - 02/26/2023 10:18 AM EDT Detailed message left for patient to call office need to scheduled the next two 3 month follow up appointments with Dr. Cooper. documented in this encounterMercy Health Defiance Hospital09-08-2023 NoteIMPRESSION: INCOMPLETE: NEEDS ADDITIONAL IMAGING EVALUATION [...] made to exams dated: 07/24/2022 mammogram - [facility], 11/29/2021 [facility] [...] Health, Family Medicine, and Medical/Surgical Oncology, the [facility] has carefully reviewed the data and [...] their providers when to stop screening mammograms. Doormaker(s): Samaria Sierra, RT(R)(M), [facility]; Apurva Kelley, RT(R)(M), [facility] OVERALL STUDY BIRADS: 2 Benign finding Showroom Salesperson: Nate Transcribe Date/Time: Jan 03 2023 12:19P Dictated by: ENRIKE BETTS MD This examination was interpreted and the report reviewed and electronically signed by: ENRIKE BETTS MD on Jan 03 2023 2:33PM [facility] OF [id number] NoteIMPRESSION: INCOMPLETE: NEEDS ADDITIONAL IMAGING EVALUATION The [...] made to exams dated: 07/24/2022 mammogram - [facility], [facility], and 11/28/2020 [facility] - [facility]. Real-time ultrasound of the right breast [...] Health, Family Medicine, and Medical/Surgical Oncology, the [facility] has carefully reviewed the data and [...] their providers when to stop screening mammograms. Doormaker(s): RT Tania(R)(M), [facility]; Apurva Kelley RT(R)(M), [facility] OVERALL STUDY BIRADS: 2 Benign finding Showroom Salesperson: Ntae Transcribe Date/Time: Jan 03 2023 12:19P Dictated by: ENRIKE BETTS MD This examination was interpreted and the report reviewed and electronically signed by: ENRIKE BETTS MD on Jan 03 2023 2:33PM [facility] OF [id number] History of Present illness Narrative* Apurva Kelley [...] 03, 2023 1:18 PM documented in this encounterMercy Health Defiance Hospital08-29-2023 History of Present illness Narrative* Sheela Celeste PA-C - 12/24/2022 9:30 AM EDT MEDICAL BREAST PATIENT NAME: Judi Krause HISTORY of PRESENT ILLNESS: Judi Krause is a 77 year old year old postmenopausal female who [facility] [place] today for follow up. 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 12/29/2019 she went on to a [...] Judi Krause's Common Hereditary Cancers Panel through [facility] was negative for a deleterious mutation. A [...] D 50,000 units. BMD: Yes, Date in [facility]: 05/04/2018; lowest T Score - normal; she [...] above CANCER SURVEILLANCE: Mammograms: Yes, Date in Epic: 11/29/2021; Avni results - negative Breast MRI: Yes, Date in Epic: 01/26/2020; results - as above Colonoscopy: Yes, Date in [facility]: 08/19/2017; results - multiple polyps; pathology [...] Right OPEN TREATMENT,TRIMALLEOLAR ANKLE FRACTURE Right 05/29/2018 [facility] PICC LINE INSERT/CONSULT 01/23/2021 PICC LINE [...] Take 1 capsule by mouth once daily. qhkr-ylgls-xe2-wne-hin-fbnd-st (GLUCOSAMINE CHONDROITIN PLUS) [id number] mg cap Take 1 capsule by mouth [...] on for same day imaging at [place] today and therefore her imaging will be [...] location preference, she will be scheduled in [place] for first available diagnostic imaging appointment. If imaging is negative/benign, she will follow up with Raphael Perdomo 02/2023 asscheduled. She will then be seen by Wesly Sepulveda (at [facility]) in one year for her annual exam. She will call me in the interim should she have any questions or concerns. I spent a total of 35 minutes on the date of the service which included preparing to see the patient, xgcs-uh-birq patient care, completing clinical documentation, performing a medically appropriate examination, counseling and educating the patient/family/caregiver, and ordering medications, tests,or procedures. Sheela Celeste PA-C Medical Breast Specialist CC: Ruddy Cooper [address] [place] [id number] documented in this encounterMercy Health Defiance Hospital08-29-2023 Instructions* Patient Instructions* Lisbet Landry LPN [...] TP53, CDH1, STK11, PALB2, CHEK2, BRAIN) Per [facility] High Risk Care Path recommendations, screening [...] male breast cancer you are of Ashkenazi Mormonism descent HEALTHY LIFESTYLE MANAGEMENT (per NCCN Guidelines [...] include but are not limited to: The [facility] Comprehensive Breast Cancer Program - my.[email or web address]/[email or web address]-[email or web address] [facility] - [facility].org [employer] - cancer.org SONI Breast Cancer Foundations - jdbcfoundation.org FORCE - facingourrisk.org [place] - brightpink.org Young Survival Coalition - youngsurvival.org 4th Lul - 4thangel.org [facility] - touchedbycancer.org ([place]) [facility] - thevictorycenter.org ([place] area) [facility] - yellowbrickplace.org ([place] area) [facility] - stewartscaringplace.org ([place] area) If you would like to compliment one of our caregivers you encountered today, you may do so at [email or web address]. Thank you ! documented in this encounterMercy Health Defiance Hospital08-29-2023 Nurse Note* Lisbet Landry LPN - 12/24/2022 9:17 AM EDT Last mammogram on: 11/29/2021 Results: See Report Is the patient active on MyChart Yes Electronically Signed By: Lisbet Landry LPN [...] Right OPEN TREATMENT,TRIMALLEOLAR ANKLE FRACTURE Right 05/29/2018 [facility] PICC LINE INSERT/CONSULT 01/23/2021 PICC LINE INSERT/CONSULT 01/29/2021 REMV CATARACT EXTRACAP,INSERT LENS Bilateral SHX CRANIOTOMY Left 2005 aneurysm TOTAL KNEE REPLACEMENT Right 07/2020 VEIN SURGERY (SPECIFY LOCATION) HX [address] Dr. Bahena Social History Tobacco Use Smoking status: Never Smokeless tobacco: Never Vaping Use Vaping Use: Never used Substance Use Topics Alcohol use: No Drug use: Never documented in this encounterMercy Health Defiance Hospital08-28-2023 Miscellaneous Notes* Telephone Encounter - Melani Zuniga RN - 12/23/2022 9:53 AM EDT Mychart unread. Will send letter. Melani Zuniga RN documented in this encounterMercy Health Defiance Hospital08-10-2023 Miscellaneous Notes* Telephone Encounter - Kay Madden RN - 12/05/2022 4:06 PM EDT Spoke with patient, she is aware of Rx. Questions answered. She will continuous pickling line pickler and start and will call us with [...] not have side effects. documented in this encounterMercy Health Defiance Hospital08-01-2023 Miscellaneous Notes* Telephone Encounter - Marylin Camacho LPN - 11/26/2022 9:24 AM EDT Pt notified of results and provider message. Pt voiced understanding. Marylin Camacho LPN * Telephone Encounter - Paty Jason, RN - 11/25/2022 4:00 PM EDT Spoke [...] OFFICE. * Telephone Encounter - Bradford Love APRN.EXPLORATION DRILLER - 11/22/2022 3:59 PM EDT Please let [...] Lymph 1.00 - 4.00 k/uL 1.77 1.60 Edwards% % 8.8 8.3 Abs Edwards <0.87 k/uL 0.86 0.63 Eosin% % 2.0 [...] ng/mL 28.2 (L) 43.4 documented in this encounterMercy Health Defiance Hospital06-23-2023 History of Present illness Narrative* Bradford Love APRN.CNS - 10/18/2022 1:20 PM EDT SUBJECTIVE: DILATED [...] Neuropathy, Without Long-Term Current Use of Insulin ([facility]) History of Cva (Cerebrovascular Accident) [...] from previous visits: She was admitted to [facility] neurosurgery service for recurrent left SCA aneurysm, subarachnoid hemorrhage January 22 through February 02, 2021. She was admitted to [facility] February 02 through February 27, 2021. [...] at the inpatient acute rehab unit at [facility] on February 02, 2021. On arrival [...] home with scheduled appointments with Monae Dennis [facility] neurology and Raphael Perdomo hematology oncology.She was also advised to follow-up with Dr. Cooper following discharge from [facility]. Seen in [facility] emergency department yesterday for abdominal discomfort and tachycardia, worsening breathing issues. CT completed of chest and abdomen negative for PE no acute process in abdomen CBC and CMPwere in acceptable range. Urinalysis negative. COVID-19 testing negative. She was discharged home with reassurance and advised close follow-up. Presents today with her son and significant other. Was at longterm for about 5 days and discharge. 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 Status post partial mastectomy and Austin to left breast irradiation. 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 Surgeon: Dr. Erik Courtney Location: [facility] Anesthesia: General Pre-op visit or labs: Outpatient. No lab work, states no anesthesia visit. CP: no SOB: no Functional capacity: stable, able to take [address] of [address] and walk a flat surface without chest pain or shortness of breath on exertion. History of heart disease/bowl attendant: no SD: no CVA: no Recent hospital admission or illness: November 2021 foot surgery She is followed by [facility] hematology oncology, last seen May 24, 2022. Has been seen by Dr. Jones neurosurgery regarding known residual aneurysm. MRA was completed 2021. He recommended an MRA in 1 year. Presents today with concern regarding lisinopril as possible because of prior kidney stone. No current flank or back pain. She was seen by Dr. Maki at [facility] August 2021 for hydronephrosis with renal [...] Take 1 capsule by mouth once daily. tfts-ixfct-df6-cpi-gjf-bdpo-st (GLUCOSAMINE CHONDROITIN PLUS) [id number] mg cap Take 1 capsule by mouth [...] following reasons: The patient has a prior SD or stroke diagnosis Component Latest Ref Rng [...] Abs Lymph 1.00 - 4.00 k/uL 1.77 Edwards% % 8.8 Abs Edwards <0.87 k/uL 0.86 Eosin% % 2.0 Abs [...] Bradford Love APRN.CNS Medical Decision Making: Problems: Low: Stable chronic illness Risk: Moderate: Drug management Medical Decision Making Level: 3 - Low documented in this encounterMercy Health Defiance Hospital06-22-2023 Miscellaneous Notes* Telephone Encounter - Paty [...] EDT Looks like had calcium oxalate stones ([facility] stone analysis). Check [employer] to see if a urine calcium (spot or 24 hour) was done. * Telephone Encounter - Poornima Zavala RN - 10/07/2022 11:45 AM EDT Patient calls to check on status of request for change in blood pressure medication d/t lisinopril possibly causing kidney stones per a friend. Offered to schedule appointment with another provider to discuss. Patient declines. Poornima Zavala RN * Telephone Encounter - Paola Main [...] Patient uses [facility] documented in this encounterMercy Health Defiance Hospital06-16-2023 Miscellaneous Notes* Telephone Encounter - Maryam [...] mouth once daily. Authorizing Provider: RAPHAEL PERDOMO APRN.DESIRAE * Telephone Encounter - Liliane Sierra - 10/11/2022 11:35 AM EDT Patient calling on status of medication * Telephone Encounter - Sarah Samuel LPN - 10/10/2022 1:40 PM EDT Pt. Said she would be willing to try a new med. And wants sent to [facility] pharmacy. Sarah Samuel LPN * Telephone Encounter [...] to resume this medication. documented in this encounterMercy Health Defiance Hospital05-10-2023 Miscellaneous Notes* Telephone Encounter - Nicole Nieves MA - 09/04/2022 2:41 PM EDT Last RX was lost when attempting to discard other old medication. Patient is out and requesting refill today. Nicole Nieves MA * Telephone Encounter - Denisse Murray - 09/04/2022 2:36 PM EDT Patient has been identified by name and date of : Yes, Provider Bernardo Date 09/04/22 Time 2:37 Patient phones for refill(s): Requested Prescriptions No prescriptions requested or ordered in this encounter Date of last office visit in primary care: 06/27/22 Last 2 Encounter Wt Readings: Date: Wt: 06/27/2022 66.2 kg (146 lb) 05/24/2022 65.3 kg (144 lb) Previous labs/tests for medication: Not applicable Please advise. Thank you. Denisse Murray documented in this encounterMercy Health Defiance Hospital05-03-2023 Miscellaneous Notes* Telephone Encounter - Jhoana [...] name and date of : Yes, Provider Bernardo Date 08/28/22 Time 11:19 am Patient phones for refill(s): Requested Prescriptions No prescriptions requested or ordered in this encounter Date of last office visit in primary care: 06/27/22 Last 2 Encounter Wt Readings: Date: Wt: 06/27/2022 66.2 kg (146 lb) 05/24/2022 65.3 kg (144 lb) Previous labs/tests for medication: Not applicable Please advise. Thank you. Denisse Murray documented in this encounterMercy Health Defiance Hospital04-11-2023 Miscellaneous Notes* Telephone Encounter - Angélica Parkinson RN - 08/06/2022 11:54 AM EDT Last Office Visit: 06/27/2022 Future Office Visit: 11/22/2022 Requested Prescriptions Pending Prescriptions Disp Refills lisinopril (ZESTRIL) 10 mg tablet 90 tablet 3 Sig: Take 1 tablet by mouth once daily. Date of Last Labs: 03/28/2022 documented in this encounterMercy Health Defiance Hospital03-29-2023 Miscellaneous Notes* Letter - Mammography Coordinator - 07/24/2022 11:39 AM EDT July 25, 2022 PID: [id number] Judi Krause [address] [place] [address] Dear Ms. Krause, We are pleased to [...] report will be [facility] as part of your permanent medical record and are available for your continuing care. Thank you for allowing us to help in meeting your health care needs. Sincerely, Dr. Godinez Interpreting Radiologist [facility] (Normal-Clinical Evaluation) documented in this encounterMercy Health Defiance Hospital03-29-2023 History of Present illness Narrative* Paola [...] 24, 2022 11:14 AM documented in this encounterMercy Health Defiance Hospital03-02-2023 History of Present illness Narrative* Bradford Love APRN.EXPLORATION DRILLER - 06/27/2022 11:39 AM EST SUBJECTIVE: DILATED [...] Neuropathy, Without Long-Term Current Use of Insulin ([facility]) History of Cva (Cerebrovascular Accident) [...] from previous visits: She was admitted to [facility] neurosurgery service for recurrent left SCA aneurysm, subarachnoid hemorrhage January 22 through February 02, 2021. She was admitted to [facility] February 02 through February 27, 2021. [...] at the inpatient acute rehab unit at [facility] on February 02, 2021. On arrival [...] appointments with Monae Dennis endovascular neurology and [facility] hematology oncology.She was also advised to follow-up with Dr. Cooper following discharge from [facility]. Seen in [facility] emergency department yesterday for abdominal discomfort and tachycardia, worsening breathing issues. CT completed of chest and abdomen negative for PE no acute process in abdomen CBC and CMPwere in acceptable range. Urinalysis negative. COVID-19 testing negative. She was discharged home with reassurance and advised close follow-up. Presents today with her son and significant other. Was at longterm for about 5 days and discharge. 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 Status post partial mastectomy and Austin to left breast irradiation. 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 Surgeon: Dr. Erik Courtney Location: [facility] orthopedic [facility] Anesthesia: General Pre-op visit or labs: Outpatient. No lab work, states no anesthesia visit. CP: no SOB: no Functional capacity: stable, able to take [address] and walk a flat surface without chest pain or shortness of breath on exertion. History of heart disease/bowl attendant: no SD: no CVA: no Recent hospital admission or illness: November 2021 foot surgery She is followed by [facility] hematology oncology, last seen May 24, 2022. [...] Take 1 capsule by mouth once daily. xckx-ukjzp-kx5-cdi-rsd-jtjm-st (GLUCOSAMINE CHONDROITIN PLUS) [id number] mg cap Take 1 capsule by mouth [...] following reasons: The patient has a prior SD or stroke diagnosis Component Latest Ref Rng [...] Abs Lymph 1.00 - 4.00 k/uL 1.77 Edwards% % 8.8 Abs Edwards <0.87 k/uL 0.86 Eosin% % 2.0 Abs [...] Cooper MD with labs prior Bradford Love APRN.EXPLORATION DRILLER Medical Decision Making: Problems: Moderate: 2+ stable chronic illnesses Data: Unique test(s) ordered: 3+ Risk: Moderate: Drug management Medical Decision Making Level: 4 - Moderate documented in this encounterMercy Health Defiance Hospital01-27-2023 History of Present illness Narrative* Raphael Perdomo APRN.PHYSICIAN ANESTHESIOLOGIST - 05/24/2022 12:54 PM EST Chief Complaint [...] strongly ER+ in 99% of cells, strongly OH+ in 99% of cells, and HER2-negative (0 [...] re- excision. It's ER positive (99%, strong), OH positive (99%, strong) and Her2/maria a 0. [...] visit. Raphael Perdomo APRN.DESIRAE documented in this encounterMercy Health Defiance Hospital12-29-2022 Miscellaneous Notes* Telephone Encounter - Birgit [...] Please let patient know. documented in this encounterMercy Health Defiance Hospital12-05-2022 Miscellaneous Notes* Telephone Encounter - To Ding Pss - 04/01/2022 11:07 AM EST Spoke with patient and rescheduled date per her request. * Telephone Encounter - Raphael Perdomo APRN.CNP - 04/01/2022 9:51 AM EST Please move it out once she has recovered. Thank you. Raphael Perdomo APRN.PHYSICIAN ANESTHESIOLOGIST * Telephone Encounter - To Ding Pss - 04/01/2022 8:45 AM EST [...] Please advise the patient. documented in this encounterMercy Health Defiance Hospital12-01-2022 Instructions* Patient Instructions* Bradford Love APRN.EXPLORATION DRILLER - 03/28/2022 2:36 PM EST Check preop lab work today. Follow your surgeons instructions regarding surgery. Increase nortriptyline from 25 mg to 50 mg daily Take two 25 mg daily at bedtime until gone Then take one 50 mg tablet at bedtime documented in this encounterMercy Health Defiance Hospital12-01-2022 History of Present illness Narrative* Bradford Love APRN.EXPLORATION DRILLER - 03/28/2022 2:00 PM EST SUBJECTIVE: DILATED [...] from previous visit: She was admitted to [facility] neurosurgery service for recurrent left SCA aneurysm, subarachnoid hemorrhage January 22 through February 02, 2021. She was admitted to [facility] February 02 through February 27, 2021. [...] at the inpatient acute rehab unit at [facility] on February 02, 2021. On arrival [...] follow-up with Dr. Cooper following discharge from [facility]. Seen in [facility] emergency department yesterday for abdominal discomfort and tachycardia, worsening breathing issues. CT completed of chest and abdomen negative for PE no acute process in abdomen CBC and CMPwere in acceptable range. Urinalysis negative. COVID-19 testing negative. She was discharged home with reassurance and advised close follow-up. Presents today with her son and significant other. Was at longterm for about 5 days and discharge. 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 Status post partial mastectomy and Austin to left breast irradiation. 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 Surgeon: Dr. Erik Courtney Location: [facility] orthopedic [facility] Anesthesia: General Pre-op visit or labs: Outpatient. No lab work, states no anesthesia visit. CP: no SOB: no Functional capacity: stable, able to take [address] and walk a flat surface without chest pain or shortness of breath on exertion. History of heart disease/bowl attendant: no SD: no CVA: no Recent hospital admission or [...] A & D ORAL) Take by mouth. wcyp-jehpy-ja3-dpb-tra-yyif-st (GLUCOSAMINE CHONDROITIN PLUS) [id number] mg cap Take 1 capsule by mouth [...] bedtime 3 mo follow up Bradford Love APRN.EXPLORATION DRILLER 6 mo follow up MD Bradford Quiroz APRN.EXPLORATION DRILLER Medical Decision Making: Problems: Moderate: 2+ stable chronic illnesses Data: Unique test(s) ordered: 3+ Risk: Moderate: Drug management and Decision on elective major surgery w/o risk factors Medical Decision Making Level: 4 - Moderate documented in this encounterMercy Health Defiance Hospital10-24-2022 History of Present illness Narrative* Julianne [...] 24gauge. RADIOLOGY DEPARTMENT: MR; Exam(s) Completed: Head: [place] [facility] [place] MRA SIGNATURE: RT Bridget(R) PATIENT NAME: Judi Krause DATE: February 18, 2022 TIME: 12:21 PM documented in this encounterMercy Health Defiance Hospital09-19-2022 Miscellaneous Notes* Telephone Encounter - Monae Muhammad RN - 01/14/2022 1:00 PM EDT [facility] informed me that they had not received everything. In fact, they have nothing. I have printed the last few years plus the imaging reports for the past 10 years. I am going to fax them to [facility]. [phone] * Telephone Encounter - Monae Muhammad RN - 01/14/2022 10:42 AM EDT Spoke with patient who has concerns about getting imaging and reports from us to [facility]. She is going there for a 2nd opinion. I called [facility], Dr. Courtney, to see if they had received everything. However, I had to leave a voicemail. I told them to follow up with me if they did not receive. documented in this encounterMercy Health Defiance Hospital09-12-2022 Miscellaneous Notes* Telephone Encounter - Abiola Deleon - 01/07/2022 8:41 AM EDT Patient called and asked if she had radiation for breast cancer could she still have inplants put in? She would like a call back to further discuss. documented in this encounterMercy Health Defiance Hospital08-25-2022 History of Present illness Narrative* Julianne [...] and treatment included: Therapeutic exercise, Neuromuscular re-education, Self-longterm management, and Patient/Family/Car egiver Education. Goals for Episode of Care: created on 10/31/21 through 01/09/22 updated 12/19/21 Improve right LE alignment for gait pattern / partially achieved [place] in home exercise program.. achieved Patient will [...] 40 Julianne Saab PT documented in this encounterMercy Health Defiance Hospital08-22-2022 History of Present illness Narrative* Julianne [...] for posture and positioning for tone management. Nathanieling Therapeutic Exercise Treatment Minutes: 25 Neuromuscular Re-Education Treatment Minutes: 15 Total Treatment Time Minutes (timed/untimed): 40 Julianne Saab PT documented in this encounterMercy Health Defiance Hospital08-19-2022 Miscellaneous Notes* Telephone Encounter - Melani [...] Zuniga RN * Telephone Encounter - Charleen Stubbs - 12/13/2021 4:16 PM EDT CV PHONE Name of caller : Judi Relationship to patient : Self If not self Will need patient permission to release results or disclose health information with called documented in . Patient identified by Name and Date of [...] her to get Angio. Thank you calling [facility] [place]. You will receive a return call within 48hours ( or 2 business days if close to the weekend). If you feel that this is an urgent issue and needs immediate attention, it is recommended that you contact your primary care provider office or proceed to your nearest Urgent Care Center of Emergency Room ED for evaluation/treatment. documented in this encounterMercy Health Defiance Hospital08-18-2022 Miscellaneous Notes* Telephone Encounter - Melani Zuniga RN - 12/13/2021 1:52 PM EDT Faxed. Melani Zuniga RN * Telephone Encounter - Melani Zuniga RN - 12/05/2021 3:39 PM EDT Forwarded to Dr. Jones for signature. Melani Zuniga RN documented in this encounterMercy Health Defiance Hospital08-17-2022 History of Present illness Narrative* Julianne [...] 37 Julianne Saab PT documented in this encounterMercy Health Defiance Hospital08-15-2022 History of Present illness Narrative* Julianne [...] 35 Julianne Saab PT documented in this encounterMercy Health Defiance Hospital08-10-2022 History of Present illness Narrative* Charleen [...] Total Treatment Time Minutes (timed/untimed): 35 ARA Frazier PT documented in this encounterMercy Health Defiance Hospital08-09-2022 Miscellaneous Notes* Telephone Encounter - Jake [...] Torres MD * Telephone Encounter - Christa Wingtashi Sierra - 12/04/2021 12:37 PM EDT Patient has [...] once daily. Please review and advise. Christa Sierra documented in this encounterMercy Health Defiance Hospital08-08-2022 Miscellaneous Notes* Telephone Encounter - Monae Mccormack RN - 12/03/2021 2:22 PM EDT Images from the original note were not included. Patient Angiogram Instructions Diagnostic Angiogram Instructions for your procedure on 01/25/22 Prior to Procedure Complete Labs as ordered-- may do at local facility - If labs not completed at a [facility] please fax to: [phone] - You do not need to fast before your labs Set-up a reliable six horse hitch driver to bring you and take you home after your procedure. Day Before Procedure If you have not received a phone call with your arrival time by the day before your procedure, please call [phone]. Night Before procedure No eating any solid [...] OF PROCEDURE Procedure will be completed at desk [address] Angiogram Details What is an angiogram? [...] office. Nights and weekends, you can call [phone] or and ask for the neurosurgery resident sales representative education courses for more urgent questions. If you have [...] Sincerely, Your Cerebrovascular Team documented in this encounterMercy Health Defiance Hospital08-08-2022 History of Present illness Narrative* Monae Mccormack RN - 12/03/2021 1:34 PM EDT Schedule 1 yr f/u cerebral angiogram w/Dr Zaragoza or covering physician -- see orders and surgical request. documented in this encounterMercy Health Defiance Hospital08-08-2022 History of Present illness Narrative* Charleen [...] 40 ARA Frazier PT documented in this encounterMercy Health Defiance Hospital08-04-2022 Miscellaneous Notes* Letter - Mammography Coordinator - 11/29/2021 4:34 PM EDT November 29, 2021 PID: [id number] Judi Krause [address] [place] [address] Dear Ms. Krause, We are pleased to [...] report will be [facility] as part of your permanent medical record and are available for your continuing care. Thank you for allowing us to help in meeting your health care needs. Sincerely, Dr. Parker Interpreting Radiologist [facility] (Normal over 40) documented in this encounterMercy Health Defiance Hospital08-04-2022 History of Present illness Narrative* Mindi [...] 29, 2021 10:59 AM documented in this encounterMercy Health Defiance Hospital08-04-2022 Instructions* Patient Instructions* Monae Muhammad RN [...] breast cancer, and a history of Ashkenazi Mormonism ancestry. Breast pain is very common and usually is not a sign of cancer, but should be evaluated by a breastspecialist. For comfort, simply reducing caffeine (coffee, tea, chocolate, energy drinks, sodas) inyour diet can provide relief. A properly fitted bra can also be helpful in reducing breast pain. Ifthose two measures do not provide relief, taking Evening [place] Oil 1000mg capsules twice a day for [...] [email or web address]. Thank you ! documented in this encounterMercy Health Defiance Hospital08-04-2022 Nurse Note* Monae Muhammad RN - [...] Right OPEN TREATMENT,TRIMALLEOLAR ANKLE FRACTURE Right 05/29/2018 [facility] PICC LINE INSERT/CONSULT 01/23/2021 PICC LINE INSERT/CONSULT 01/29/2021 REMV CATARACT EXTRACAP,INSERT LENS Bilateral SHX CRANIOTOMY Left 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 Bahena Social History Tobacco Use Smoking status: Never Smoker Smokeless tobacco: Never Used Vaping Use Vaping Use: Never used Substance Use Topics Alcohol use: No Drug use: Never documented in this encounterMercy Health Defiance Hospital08-04-2022 History of Present illness Narrative* Sheela [...] old postmenopausal female who [facility] [place] today to establish care. 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 12/29/2019 she went on to a [...] Judi Krause's Common Hereditary Cancers Panel through [employer] was negative for a deleterious mutation. A [...] above CANCER SURVEILLANCE: Mammograms: Yes, Date in [facility]: 11/28/2020; results - negative Breast MRI: Yes, Date in Epic: 01/26/2020; results - as above Colonoscopy: Yes, Date in [facility]: 08/19/2017; results - multiple polyps; pathology [...] Right OPEN TREATMENT,TRIMALLEOLAR ANKLE FRACTURE Right 05/29/2018 [facility] PICC LINE INSERT/CONSULT 01/23/2021 PICC LINE [...] Take 1 tablet by mouth once daily. ldeq-ekzek-xf1-abp-yts-bkmo-st (GLUCOSAMINE CHONDROITIN PLUS) [id number] mg cap Take 1 capsule by mouth [...] which included preparing to see the patient, vkuh-[id number] patient care, completing clinical documentation, performing a medically appropriate examination, counseling and educating the patient/family/caregiver and ordering medications,tests, or procedures. Sheela Celeste PA-C Medical Breast Specialist CC: Tasha Schaeffer [id number] [facility] [id number] [address] [place] [address] documented in this encounterMer[facility]08-03-2022 History of Present illness Narrative* Julianne [...] 35 Julianne Saab PT documented in this encounterMercy Health [facility]08-01-2022 History of Present illness Narrative* Julianne [...] 31 Julianne Saab PT documented in this encounterMercy [facility]07-28-2022 History of Present illness Narrative* Julianne [...] encouraged to get appt with neurology with [facility] as she wants to stay in this [...] is willing to [facility] Pain: OBJECTIVE MEASURES WITH LEVEL OF [...] 30 Julianne Saab PT documented in this encounterMercy Health Defiance Hospital07-27-2022 History of Present illness Narrative* Raphael Perdomo APRN.PHYSICIAN ANESTHESIOLOGIST - 11/21/2021 1:21 PM EDT Chief Complaint [...] strongly ER+ in 99% of cells, strongly OH+ in 99% of cells, and HER2-negative (0 [...] re- excision. It's ER positive (99%, strong), OH positive (99%, strong) and Her2/maria a 0. [...] visit. Raphael Perdomo APRN.DESIRAE documented in this encounterMercy Health Defiance Hospital07-26-2022 History of Present illness Narrative* Julianne Saab, PT - 11/20/2021 6:59 AM EDT Episode [...] 30 Julianne Saab PT documented in this encounterMercy Health [facility] Hospital07-21-2022 History of Present illness Narrative* Julianne [...] 30 Julianne Saab PT documented in this encounterMercy [facility]07-19-2022 History of Present illness Narrative* Julianne [...] 40 Julianne Saab PT documented in this encounterMercy Health [facility] Hospital07-06-2022 History of Present illness Narrative* Julianne [...] Improve right LE alignment for gait pattern Williamson in home exercise program. Patient will increase [...] Planned: 12 Planned Treatment Interventions: Therapeutic exercise (43307);Neuromuscular re- education (62361);Self-longterm management (76063);Patient/Family/Caregiver Education;Gait Training (69492);Therapeuticactivities (79864);Manual therapy (69746) PLAN FOR NEXT VISIT: Will add ankle [...] aneurysm (has neuropathy) Relevant History Preferred Language: Afghan Employment: Retired Recreation / Current Exercise: none [...] 45 Julianne Saab PT documented in this encounterMercy Health [facility]07-06-2022 History of Past illness Narrative* Problem [...] of this encounter (statuses as of 12/20/2021) [facility] of Past illness Narrative* Problem [...] of this encounter (statuses as of 12/22/2021) [facility] of Past illness Narrative* Problem [...] of this encounter (statuses as of 01/07/2022) [facility] of Past illness Narrative* Problem [...] of this encounter (statuses as of 01/14/2022) [facility] of Past illness Narrative* Problem [...] of this encounter (statuses as of 03/01/2022) [facility] of Past illness Narrative* Problem [...] of this encounter (statuses as of 03/03/2022) [facility] of Past illness Narrative* Problem [...] of this encounter (statuses as of 03/28/2022) [facility] of Past illness Narrative* Problem [...] of this encounter (statuses as of 04/01/2022) [facility] of Past illness Narrative* Problem [...] of this encounter (statuses as of 04/19/2022) [facility] of Past illness Narrative* Problem [...] of this encounter (statuses as of 05/01/2022) [facility] of Past illness Narrative* Problem [...] of this encounter (statuses as of 05/24/2022) [facility] of Past illness Narrative* Problem [...] of this encounter (statuses as of 06/28/2022) [facility] of Past illness Narrative* Problem [...] of this encounter (statuses as of 07/26/2022) [facility] of Past illness Narrative* Problem [...] of this encounter (statuses as of 08/06/2022) [facility] of Past illness Narrative* Problem [...] of this encounter (statuses as of 08/28/2022) [facility] of Past illness Narrative* Problem [...] of this encounter (statuses as of 09/05/2022) [facility] of Past illness Narrative* Problem [...] of this encounter (statuses as of 10/11/2022) [facility] of Past illness Narrative* Problem [...] of this encounter (statuses as of 10/17/2022) [facility] of Past illness Narrative* Problem [...] of this encounter (statuses as of 10/18/2022) [facility] Past illness Narrative* Problem [...] of this encounter (statuses as of 11/26/2022) [facility] of Past illness Narrative* Problem [...] of this encounter (statuses as of 12/06/2022) [facility] Past illness Narrative* Problem [...] of this encounter (statuses as of 12/23/2022) [facility] Past illness Narrative* Problem [...] of this encounter (statuses as of 12/23/2022) [facility] of Past illness Narrative* Problem [...] of this encounter (statuses as of 12/24/2022) [facility] Past illness Narrative* Problem [...] of this encounter (statuses as of 12/25/2022) [facility] Past illness Narrative* Problem [...] of this encounter (statuses as of 02/26/2023) [facility] illness Narrative* Problem [...] of this encounter (statuses as of 03/02/2023) [facility] illness Narrative* Problem [...] of this encounter (statuses as of 03/02/2023) [facility] of Past illness Narrative* Problem [...] of this encounter (statuses as of 03/04/2023) [facility] of Past illness Narrative* Problem [...] of skin 08/27/2013 10/21/2014 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 Actinic [...] of this encounter (statuses as of 03/11/2023) [facility] of Past illness Narrative* Problem [...] of this encounter (statuses as of 04/04/2023) [facility] of Past illness Narrative* Problem [...] of this encounter (statuses as of 06/13/2023) [facility] of Past illness Narrative* Problem [...] of this encounter (statuses as of 06/13/2023) [facility] of Present illness Narrative* Ruddy Cooper MD - 10/17/2021 9:00 AM EDT This note was created using Codesionriter. Subjective Judi Krause is a 76 year old female. Patient presents with: F/U 6 months SUBJECTIVE: Judi Krause is a 76 year old year old lady here today for 6 month follow up appointment for review of medical conditions. Going to [facility] for her right ankle after issues with failed hardware (broken screws). [place] need left foot addressed for problems after surgery for hammertoe. Will see for first appointment next Friday. Decided to go to [facility] for breast cancer treatment. Discussed bad experience had with breast biopsy in [place]. Noted severe dry heaving when had the [...] Take 1 tablet by mouth once daily. dxwr-zvzvq-oq4-jku-vbl-ztdo-st (GLUCOSAMINE CHONDROITIN PLUS) [id number] mg cap Take 1 capsule by mouth [...] Abs Lymph 1.00 - 4.00 k/uL 1.41 Edwards% % 9.4 Abs Edwards <0.87 k/uL 0.68 Eosin% % 2.1 Abs [...] PANEL - CBC 6. Breast cancer--following at [facility], Ruddy Cooper MD documented in this encounterMercy Health [facility] Hospital06-13-2022 History of Present illness Narrative* Ruiz Serrato, SHAHID.PHYSICIAN ANESTHESIOLOGIST - 10/08/2021 12:11 PM EDT Images from [...] after initial surgery. Surgery was performed at [facility]. Presents today due to concerns thather [...] HISTORY Procedure Laterality Date ABDOMINAL SURGERY HX 2003 tummy tuck ANESTHESIA HERNIA REPAIR LOWER ABDOMEN [...] Right OPEN TREATMENT,TRIMALLEOLAR ANKLE FRACTURE Right 05/29/2018 [facility] PICC LINE INSERT/CONSULT 01/23/2021 PICC LINE [...] Take 1 tablet by mouth once daily. ejvk-jotay-dl5-ahs-nof-tmzi-st (GLUCOSAMINE CHONDROITIN PLUS) [id number] mg cap Take 1 capsule by mouth [...] initial surgery. Patient will be scheduled with [facility]. Appointment scheduled. We will follow-up with orthopedic doctor as scheduled. Follow-up with PCP did discuss ongoing neuropathy. Red flags for prompt reevaluation discussed. Supportive therapies discussed. Patient verbalized understanding agrees with plan of care. Ruiz Serrato APRN.DESIRAE documented in this encounterMercy Health Defiance Hospital05-11-2022 Miscellaneous Notes* Telephone Encounter - Carolina [...] you. Carolina Don LPN documented in this encounterMercy Health Defiance Hospital04-12-2022 NoteHNO ID: [id number] Author: RT Estephania(R) Service: Radiology Author Type: [...] BY: RT Estephania(R) August 07, 2021 1:09 PMAdena Health [id number] History of Present illness Narrative* RT Estephania(R) [...] 07, 2021 1:09 PM documented in this encounterMercy Health Defiance Hospital04-11-2022 Miscellaneous Notes* Telephone Encounter - Jocelyn Zhou - 08/06/2021 1:17 PM EDT Left VM to leave early due to construction on [address] documented in this encounterMercy Health Defiance Hospital03-08-2022 NoteHNO ID: [id number] Author: RT Andrea(R) Service: Radiology Author Type: Technologist Type: Progress [...] Krause DATE: July 03, 2021 TIME: 10:45 AMAdena Health [id number] History of Past illness Narrative* Problem Noted [...] of this encounter (statuses as of 10/23/2021) [facility] of Past illness Narrative* Problem [...] of this encounter (statuses as of 10/31/2021) [facility] of Past illness Narrative* Problem [...] of this encounter (statuses as of 11/13/2021) [facility] of Past illness Narrative* Problem [...] 0 10/21/2014 Benign neoplasm of colon 08/12/2007 06/26/2 015 Unspecified constipation 08/12/2007 015 Nonspecific abnormal [...] of this encounter (statuses as of 11/15/2021) [facility] of Past illness Narrative* Problem [...] of this encounter (statuses as of 11/20/2021) [facility] of Past illness Narrative* Problem [...] of this encounter (statuses as of 11/22/2021) [facility] of Past illness Narrative* Problem [...] of this encounter (statuses as of 11/23/2021) [facility] of Past illness Narrative* Problem [...] of this encounter (statuses as of 11/26/2021) [facility] of Past illness Narrative* Problem [...] of this encounter (statuses as of 11/28/2021) [facility] of Past illness Narrative* Problem [...] of this encounter (statuses as of 11/29/2021) [facility] of Past illness Narrative* Problem [...] of this encounter (statuses as of 11/30/2021) [facility] of Past illness Narrative* Problem [...] of this encounter (statuses as of 12/01/2021) [facility] of Past illness Narrative* Problem [...] of this encounter (statuses as of 12/03/2021) [facility] of Past illness Narrative* Problem [...] of this encounter (statuses as of 12/03/2021) [facility] of Past illness Narrative* Problem [...] of this encounter (statuses as of 12/03/2021) [facility] of Past illness Narrative* Problem [...] of this encounter (statuses as of 12/05/2021) [facility] of Past illness Narrative* Problem Noted Date Resolved Date Dehydration 05/02/2021 10/15/2021 Urinary tract infection assbradly ciated with catheterization of urinary tract 05/02/2021 [...] of this encounter (statuses as of 12/10/2021) [facility] of Past illness Narrative* Problem [...] of this encounter (statuses as of 12/12/2021) [facility] of Past illness Narrative* Problem [...] of this encounter (statuses as of 12/13/2021) [facility] of Past illness Narrative* Problem [...] of this encounter (statuses as of 12/14/2021) [facility] of Past illness Narrative* Problem [...] of this encounter (statuses as of 12/17/2021) [facility] of Past illness Narrative* Problem [...] of this encounter (statuses as of 08/06/2021) [facility] of Past illness Narrative* Problem [...] of this encounter (statuses as of 08/08/2021) [facility] of Past illness Narrative* Problem [...] of this encounter (statuses as of 09/06/2021) [facility] of Past illness Narrative* Problem [...] of this encounter (statuses as of 10/08/2021) [facility] History of Present illness Narrative* Denisse Cuevas RT(R) - 12/25/2020 1:10 PM EDT Radiology [...] IV DATA: Not applicable SIGNED BY: RT Linus(R) December 25, 2020 1:03 PM documented in this encounterMercy Health Defiance Hospital05-11-2021 NoteHNO ID: [id number] Author: RT Frieda(R) Service: ? Author Type: Manager Laboratory Type: Progress Notes Filed: 09/05/2020 12:14 PM [...] BY: RT Frieda(R) September 05, 2020 12:12 PMAdena Health [id number] NoteHNO ID: [id number] Author: Mindi Pereira (Rt) Service: Radiology Author Type: Manager Laboratory Type: Progress Notes Filed: 08/01/2020 3:12 PM [...] Yes RADIOLOGY DEPARTMENT: MR; Exam(s) Completed: Head: [place] [facility] [place] MRA PERIPHERAL IV DATA: Not applicable SIGNED BY: RT ISRRAEL August 01, 2020 3:12 [facility]01-09-2021 History of Present illness Narrative* Angella Murray (Rt)Mindi - 05/06/2020 11:20 AM EST Radiology Service [...] 06, 2020 11:13 AM documented in this encounterSumma Health Wadsworth [facility] Centerlt note Author Kaya Thrasher [facility] Note Date/Time October 12, 2024 3:57 pm [facility] Medical Records Department [address] [place] [id number] Counseling Note - Pharmacy 10/12/24 1456 MR#: [id number] Acct: [id number] Name: JUDI KRAUSE Rep #:[id number] : 1945 79 From: Kaya Thrasher PCP: Dr. uRddy Cooper MD Status:AD M IN [place] [facility] [id number] [place] PA Med [facility] Counseling Pharmacy Service has performed discharge medication reconciliation and counseling for this patient. 1. CEFDINIR 300MG PO BID X 3 DAYS The patient's discharge medication list was reviewed for discrepancies and discrepancies were resolved. The patient was counseled on the following discharge medications and changes in medications for homegoing were reviewed. The Reason for Use, instructions for use, and potential side effects were reviewed for all new medications. The patient's questions regarding all of their medications were answered. The patient was able to verbally demonstrate an understanding of their dischargemedications. Medications at Discharge Home Medications aspirin 81 mg tablet 81 mg PO DAILY heart health 02/02/21 letrozole 2.5 mg tablet 2.5 mg PO DAILY 08/25/24 metformin 500 mg tablet 500 mg PO DAILY diabetes mellitus 08/25/24 nortriptyline 50 mg capsule 150 mg PO QHS 08/25/24 meclizine 25 mg chewable tablet (Antivert) 25 mg PO TID PRN dizziness #10 tabs 09/09/24 losartan 25 mg tablet 25 mg PO DAILY 10/10/24 cefdinir 300 mg capsule 300 mg PO BID #6 caps 10/12/24 10/12/24 1456 <Electronically signed by Kaya Thrasher> Date _ Kaya Thrasher Cosigner Signature (if applicable): Date CC: ~ Signed [facility] Work Phone: Evaluation note* Diagnosis Right knee pain, unspecified chronicity documented in this encounter [facility] note* Diagnosis Onset Date Resolution Status Bacteria in urine acute Creatinine elevation acute Hydronephrosis with urinary obstruction due to ureteral calculus acute [facility] Work Phone: Evaluation note* Diagnosis Acute right ankle pain- Primary [facility]* Diagnosis Osteoporosis, unspecified- Primary [facility] this [facility]*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 documented in this encounter [facility] note*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 documented in this encounter [facility] note*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 documented in this encounter [facility]*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 [facility]* Diagnosis Invasive ductal carcinoma of breast, 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 [facility]*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 documented in this encounter [facility]* Diagnosis Bilateral fibrocystic breast changes- Primary Personal history of breast cancer Personal history of malignant neoplasm of breast S/P bilateral breast lumpectomy Other postprocedural status Use of anastrozole Use of aromatase inhibitors Encounter for screening mammogram for malignant neoplasm of breast Other screening mammogram [facility]* Diagnosis Encounter for screening mammogram for breast cancer Bilateral fibrocystic breast changes Personal history of breast cancer Personal history of malignant neoplasm of breast S/P bilateral breast lumpectomy Other postprocedural status Encounter for screening mammogram for malignant neoplasm of breast Other screening mammogram [facility]*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 [facility]* Diagnosis Cerebral aneurysm- Primary Cerebral aneurysm, nonruptured [facility]*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 [facility]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 [facility]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 Cerebral aneurysm Cerebral aneurysm, nonruptured [facility]* Diagnosis Vitamin D deficiency- Primary Unspecified vitamin D deficiency Type 2 diabetes mellitus with diabetic neuropathy, without long-term current use of insulin (HCC) Generalized anxiety disorder Mixed hyperlipidemia [facility]*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 [facility]*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 [facility]* Diagnosis Insomnia, unspecified type- Primary Anxiety Anxiety state, unspecified Vitamin D deficiency Unspecified vitamin D deficiency Type 2 diabetes mellitus with diabetic neuropathy, without long-term current use of insulin (HCC) Encounter for long-term current use of medication Malignant neoplasm of nipple of left breast in female, unspecified estrogen receptor status (HCC) [facility]* Diagnosis Intracranial aneurysm- Primary Cerebral aneurysm, nonruptured Nonruptured cerebral aneurysm Cerebral aneurysm, nonruptured [facility]* Diagnosis Preop exam for internal medicine- Primary Other specified pre-operative examination Type 2 diabetes mellitus with diabetic neuropathy, without long-term current use of insulin (HCC) Need for shingles vaccine Need for prophylactic vaccination and inoculation against other viral diseases Encounter for immunization Need for other specified prophylactic vaccination against single bacterial disease Screening for diabetic retinopathy Screening for other eye conditions Vitamin D deficiency Unspecified vitamin D deficiency [facility]* Diagnosis Osteoporosis, unspecified- Primary [facility]* Diagnosis Invasive ductal carcinoma of breast, 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 [facility]* Diagnosis Type 2 diabetes mellitus with diabetic neuropathy, without long-term current use of insulin (HCC)- Primary Vitamin D deficiency Unspecified vitamin D deficiency Insomnia, unspecified type [facility]* Diagnosis Primary hypertension- Primary Unspecified essential hypertension Encounter for immunization Need for other specified prophylactic vaccination against single bacterial disease Need for shingles vaccine Need for prophylactic vaccination and inoculation against other viral diseases History of extraction of renal calculus Other postprocedural status History of hydronephrosis Personal history of other disorder of urinary system [facility]* Diagnosis Screening breast examination- Primary Breast screening, unspecified [facility]* Diagnosis Bilateral fibrocystic breast changes- Primary Personal history of breast cancer Personal history of malignant neoplasm of breast S/P bilateral breast lumpectomy Other postprocedural status Use of anastrozole Use of aromatase inhibitors Encounter for screening mammogram for malignant neoplasm of breast Other screening mammogram Mass of lower outer quadrant of right breast [facility]* Diagnosis Screening breast examination Breast screening, unspecified [facility]* Diagnosis Nonruptured cerebral aneurysm Cerebral aneurysm, nonruptured [facility]* Diagnosis Intracranial aneurysm Cerebral aneurysm, nonruptured [facility] Diagnosis Invasive ductal carcinoma of breast, 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 [facility] Diagnosis Peripheral arterial disease (HCC)- Primary Peripheral vascular disease, unspecified Primary hypertension Unspecified essential hypertension Type 2 diabetes mellitus with diabetic neuropathy, without long-term current use of insulin (HCC) Tinnitus of both ears Unspecified tinnitus Vitamin D deficiency Unspecified vitamin D deficiency Mixed hyperlipidemia Muscle cramping Cramp of limb [facility] Diagnosis Screening for diabetic retinopathy- Primary [...] referable to limbs [facility] Diagnosis Osteoporosis, unspecified- Primary [facility] Diagnosis History of abdominal surgery Other postprocedural status Abdominal pain, chronic, generalized Abdominal pain, generalized [facility] Diagnosis Gait difficulty- Primary Abnormality of gait Complaints of leg weakness Other musculoskeletal symptoms referable to limbs [facility] Diagnosis Patient left without being seen- Primary Surgical or other procedure not carried out because of patient's decision [facility] Diagnosis Acute left ankle pain- Primary Foot pain, left Pain in limb Acute left ankle pain Foot pain, left Pain in limb [facility] Diagnosis Complaints of leg weakness- Primary Other musculoskeletal symptoms referable to limbs Gait difficulty Abnormality of gait [facility] Diagnosis Complaints of leg weakness- Primary Other musculoskeletal symptoms referable to limbs Gait difficulty Abnormality of gait [facility] Diagnosis Complaints of leg weakness- Primary Other musculoskeletal symptoms referable to limbs Gait difficulty Abnormality of gait [facility] Diagnosis Complaints of leg weakness- Primary Other musculoskeletal symptoms referable to limbs Gait difficulty Abnormality of gait [facility] Diagnosis Complaints of leg weakness- Primary Other musculoskeletal symptoms referable to limbs Gait difficulty Abnormality of gait [facility] Diagnosis Complaints of leg weakness- Primary Other musculoskeletal symptoms referable to limbs Gait difficulty Abnormality of gait documented [facility]* Diagnosis Complaints of leg weakness- Primary Other musculoskeletal symptoms referable to limbs Gait difficulty Abnormality of gait documented [facility]* Diagnosis Complaints of leg weakness- Primary Other musculoskeletal symptoms referable to limbs Gait difficulty Abnormality of gait documented in this encounter [facility] note* Diagnosis Complaints of leg weakness- Primary Other musculoskeletal symptoms referable to limbs Gait difficulty Abnormality of gait documented [facility]* Diagnosis Generalized abdominal pain- Primary Abdominal pain, generalized History of abdominal surgery Other postprocedural status documented in this encounter [facility]* Diagnosis Complaints of leg weakness- Primary Other musculoskeletal symptoms referable to limbs Gait difficulty Abnormality of gait documented in this encounter [facility] note* Diagnosis Type 2 diabetes mellitus with diabetic neuropathy, without long-term current use of insulin (HCC) 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) documented in this encounter [facility] note* Diagnosis Invasive ductal carcinoma of breast, left (HCC) documented [facility]* Diagnosis Complaints of leg weakness- Primary Other musculoskeletal symptoms referable to limbs Gait difficulty Abnormality of gait documented [facility]* Diagnosis Pre-operative examination- Primary Preoperative examination, [...] Abnormality of gait [facility] Diagnosis Pre-operative examination- Primary Preoperative [...] neuropathy, without long-term current use of insulin ([facility]) Screening for diabetic retinopathy Screening for other eye conditions Encounter for immunization Need for other specified prophylactic vaccination against single bacterial disease Tinnitus of both ears Unspecified tinnitus 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) Complaints of leg weakness Other musculoskeletal symptoms referable to limbs [facility] Diagnosis Pre-operative examination- Primary Preoperative [...] Prediabetes Other abnormal glucose SAH (subarachnoid hemorrhage) ([facility])- Primary Subarachnoid hemorrhage Dysphagia, oropharyngeal Dysphagia, oropharyngeal [...] Abnormality of gait [facility] Diagnosis Pre-operative examination- Primary Preoperative [...] Prediabetes Other abnormal glucose SAH (subarachnoid hemorrhage) ([facility])- Primary Subarachnoid hemorrhage Dysphagia, oropharyngeal Dysphagia, oropharyngeal [...] breast cancer- Primary [facility] Diagnosis Pre-operative examination- Primary Preoperative examination, [...] Pain in limb [facility] Diagnosis Pre-operative examination- Primary Preoperative examination, [...] Prediabetes Other abnormal glucose SAH (subarachnoid hemorrhage) ([facility])- Primary Subarachnoid hemorrhage Dysphagia, oropharyngeal Dysphagia, oropharyngeal [...] complication, without long-term current use of insulin ([facility]) 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) Generalized anxiety disorder Complaints of leg weakness- Primary Other musculoskeletal symptoms referable to limbs Gait difficulty Abnormality of gait [facility] Diagnosis Pre-operative examination- Primary Preoperative [...] Prediabetes Other abnormal glucose SAH (subarachnoid hemorrhage) ([facility])- Primary Subarachnoid hemorrhage Dysphagia, oropharyngeal Dysphagia, oropharyngeal [...] complication, without long-term current use of insulin ([facility]) 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) Generalized anxiety disorder Screening mammogram for breast cancer [facility] Diagnosis Pre-operative examination- Primary Preoperative examination, [...] Prediabetes Other abnormal glucose SAH (subarachnoid hemorrhage) ([facility])- Primary Subarachnoid hemorrhage Dysphagia, oropharyngeal Dysphagia, oropharyngeal [...] Abnormality of gait [facility] Diagnosis Pre-operative examination- Primary Preoperative examination, [...] Prediabetes Other abnormal glucose SAH (subarachnoid hemorrhage) ([facility])- Primary Subarachnoid hemorrhage Dysphagia, oropharyngeal Dysphagia, oropharyngeal [...] of right breast [facility] Diagnosis Pre-operative examination- Primary Preoperative [...] Abnormality of gait [facility] Diagnosis Pre-operative examination- Primary Preoperative examination, [...] (HCC)- Primary Subarachnoid hemorrhage SAH (subarachnoid hemorrhage) ([facility]) Subarachnoid hemorrhage Dysphagia, oropharyngeal Dysphagia, oropharyngeal phase Generalized anxiety disorder Essential hypertension Unspecified essential hypertension Respiratory insufficiency Other dyspnea and respiratory abnormality Type 2 diabetes mellitus without complication, without long-term current use of insulin (HCC) 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) IVH (intraventricular hemorrhage) ([facility]) Intracerebral hemorrhage Obstructive hydrocephalus (HCC) Obstructive hydrocephalus [...] right ankle pain [facility]* Diagnosis Pre-operative examination- Primary Preoperative examination, [...] of patient's decision [facility] Diagnosis Pre-operative examination- Primary Preoperative [...] Generalized anxiety disorder [facility] Diagnosis Pre-operative examination- Primary Preoperative [...] Generalized anxiety disorder documented in this encounter [facility] note* Diagnosis Pre-operative examination- Primary Preoperative examination, [...] left breast (HCC) documented in this encounter [facility] note* Diagnosis Pre-operative examination- Primary Preoperative examination, [...] Prediabetes Other abnormal glucose SAH (subarachnoid hemorrhage) ([facility])- Primary Subarachnoid hemorrhage Dysphagia, oropharyngeal Dysphagia, oropharyngeal [...] of right breast [facility] Diagnosis Pre-operative examination- Primary Preoperative [...] Prediabetes Other abnormal glucose SAH (subarachnoid hemorrhage) ([facility])- Primary Subarachnoid hemorrhage Dysphagia, oropharyngeal Dysphagia, oropharyngeal [...] use of medication [facility]* Diagnosis Pre-operative examination- Primary Preoperative examination, [...] Unspecified arthropathy, hand [facility] Diagnosis Pre-operative examination- Primary Preoperative examination, [...] for breast cancer [facility] Diagnosis Pre-operative examination- Primary Preoperative [...] Prediabetes Other abnormal glucose SAH (subarachnoid hemorrhage) ([facility])- Primary Subarachnoid hemorrhage Dysphagia, oropharyngeal Dysphagia, oropharyngeal [...] complication, without long-term current use of insulin ([facility])- Primary documented in this encounter [facility] note* Diagnosis Pre-operative examination- Primary Preoperative examination, [...] Prediabetes Other abnormal glucose SAH (subarachnoid hemorrhage) ([facility])- Primary Subarachnoid hemorrhage Dysphagia, oropharyngeal Dysphagia, oropharyngeal [...] neuropathy, without long-term current use of insulin ([facility])- Primary documented in this encounter [facility] note* Diagnosis Pre-operative examination- Primary Preoperative examination, [...] Screening for nephropathy [facility] Diagnosis Pre-operative examination- Primary Preoperative [...] Prediabetes Other abnormal glucose SAH (subarachnoid hemorrhage) ([facility])- Primary Subarachnoid hemorrhage Dysphagia, oropharyngeal Dysphagia, oropharyngeal [...] site not specified [facility]* Diagnosis Pre-operative examination- Primary Preoperative examination, [...] both ulnar nerves [facility]* Diagnosis Pre-operative examination- Primary Preoperative examination, [...] Prediabetes Other abnormal glucose SAH (subarachnoid hemorrhage) ([facility])- Primary Subarachnoid hemorrhage Dysphagia, oropharyngeal Dysphagia, oropharyngeal [...] site unspecified- Primary [facility] Diagnosis Pre-operative examination- Primary Preoperative [...] Prediabetes Other abnormal glucose SAH (subarachnoid hemorrhage) ([facility])- Primary Subarachnoid hemorrhage Dysphagia, oropharyngeal Dysphagia, oropharyngeal [...] of insulin (HCC) documented [facility]* Diagnosis Pre-operative examination- Primary Preoperative examination, [...] left breast (HCC) [facility] Diagnosis Pre-operative examination- Primary Preoperative examination, [...] of left breast (HCC) Generalized anxiety disorder Food insecurity- Primary Encounter for screening involving social determinants of health (SDoH) documented in this encounter [facility] note* Diagnosis Pre-operative examination- Primary Preoperative examination, [...] of left breast (HCC) Generalized anxiety disorder Food insecurity- Primary Encounter for screening involving social determinants of health (SDoH) [facility] Diagnosis Pre-operative examination- Primary Preoperative [...] of left breast (HCC) Generalized anxiety disorder Needs assistance with community resources- Primary Coordination of complex care [facility] Author Desiree Awan [facility] Note Date/Time October 19, 2024 7:23 pm [facility] Medical Records Department [address] [place] [address] H&P Exam - Hospitalist 10/19/24 1841 MR#: [id number] Acct: [id number] Name: JUDI KRAUSE Rep #:[id number] : 1945 79 From: Desiree Awan MD PCP: Dr. Ruddy Cooper MD Status:AD M NEVAEH [place]: [id number] HPI - General General Date of Admission: 10/19/24 Date of Service: 10/19/24 Chief Complaint: Generalized weakness HPI Narrative JUDI KRAUSE, is a 79-year-old female with history of diabetes, hypertension, anxiety presented [facility] ED 10/19/2024 due to weakness after a fall. Her daughter Sade called for a well check because she lives in [place] and was unable to get hold of her mother. Patient lives alone and ambulates with cane or walker if needed. Today she was on the ground and had a hard time getting up and notes she was on the ground for only about an hour however daughter reports that she has not been able to get a hold of her since yesterday. Patient is more confused compared to baseline. Patient did seem to be confused in the ED as well for ED physician. Patient afebrile, heart rate 84with a blood pressure 127/58, pulse ox 100% on room air. UA not suggestive of UTI and CBC fairly unremarkable. Chest x-ray with no acute abnormality, head CTwith no acute changes. UA did not appear infectious. BMP with a BUN of 24 and creatinine 0.97. CPK of 91. Workup fairly benign however given patient lives alone it was felt it was not safe for her to be discharged. Hospitalist contacted for admission. Patient evaluated at bedside, fairly poor historian butsounds as though she fell this morning was down for 1 or 2 hours per patient. It is unclear if this was mechanical or due to weakness as patient is very poor historian. Only reports she feels somewhat tired overall and feels irritated but she has not been able to eat yet. She reports that she has some dry eyes left greater than right and she has this chronic spot on her left hernandez that willcome and go and sometimes itch. Reports that occasionally she will feel short of breath but nothing new, no chest pain. Reports yesterday she felt very hot outside and then felt tired but denies any other new or acute complaints [facility] Medical History Orthostatic hypotension Hoarseness History of [...] 81 mg PO DAILY heart health 02/02/21 10/09/24 History letrozole 2.5 mg tablet 2.5 mg PO DAILY 08/25/24 History metformin 500 mg tablet 500 mg PO DAILY diabetes joy litus 08/25/24 Unknown History nortriptyline 50 mg capsule 150 mg PO QHS 08/25/24 History meclizine 25 mg chewable tablet 25 mg PO TID PRN dizzi ness #10 tabs 09/09/24 Unknown Rx (Antivert) losartan 25 mg tablet 25 mg PO DAILY 10/10/2409/26 History cefdinir 300 mg capsule 300 mg PO BID #6 caps Unknown Rx Allergy/AdvReac Type Severity Reaction Status Date / [...] type: does not use ROS ROS Narrative General: Denies fever/chills HENT: Denies headache, denies stuffy nose, denies sore throat EYES: Has some dry eyes Resp: Denies cough, denies shortness of breath Cardiac: Denies chest pain GI: Denies abdominal pain, denies changes in bowel, denies nausea/vomiting : Denies changes in urination Extremity: Denies swelling MSK: General Weakness Neuro: Denies any numbness/tingling Heme: Denies any new significant bleeding or bruising Skin: Little spot on anterior left hernandez which is not new Psychiatric: Irritated because she has not been able to eat yet Vital Signs Vital Signs Vital Signs: 10/19/24 12:20 10/19/24 12:28 10/19/24 13:19 Temperature 98.0 F Temperature Source Oral Pulse Rate 84 84 Respiratory Rate 16 Respiratory Effort Normal Blood Pressure 127/50 H 124/81 H Blood Pressure Mean 75 95 Pulse Ox 100 Oxygen Delivery Method Room Air 10/19/24 14:00 10/19/24 15:00 10/19/24 16:00 Temperature 98.2 F 97.8 F Temperature Source Oral Oral Pulse Rate 80 77 76 Respiratory Rate 17 14 13 Respiratory Effort Blood Pressure 135/76 H 157/81 H 164/84 H Blood Pressure Mean 95 106 110 Pulse Ox 100 98 100 Oxygen Delivery Method Room Air Room Air Room Air 10/19/24 17:00 Temperature Temperature Source Pulse Rate 79 Respiratory Rate 24 H Respiratory Effort Blood Pressure 162/80 H Blood Pressure Mean 107 Pulse Ox 100 Oxygen Delivery Method Weight Weight: 65.8 kg Body Mass Index (BMI) 25.7 Physical Exam Narrative General: Patient did answer orientation questions appropriately but was very poor historian and seemed and was little confused at times HEENT: Atraumatic, normocephalic Eyes: Anicteric, normal conjunctiva, extraocular movements grossly intact Neck: Supple Respiratory: Clear to auscultation bilaterally, normal respiratory effort Cardiovascular: Regular rate and rhythm GI: Soft, nontender, nondistended Extremities: No edema Musculoskeletal: Moving all extremities Neuro: No overt focal neurological deficits Skin: Small anterior scab on left hernandez, no bleeding Psych: Somewhat irritable but overall cooperative Results Lab / Micro Data 10/19/24 13:40 10/19/24 13:40 Labs: Laboratory Results - last 24 hr 10/19/24 13:40: WBC 9.5, RBC 4.43, Hgb 13.3, Hct 40.6, MCV 91.6, MCH 30.0, MCHC 32.8, RDW Std Deviation 41.1, RDW Coeff of Meño 12.2, Plt Count 330, MPV 8.4, Immature Gran % (Auto) 0.300, Neut % (Auto) 70.1 H, Lymph % (Auto) 18.5 L, Edwards % (Auto) 8.1, Eos % (Auto) 2.5, Baso % (Auto) 0.5, Absolute Neuts (auto) 6.7, Absolute Lymphs (auto) 1.76, Nucleated RBC % 0, Sodium 140, Potassium 4.3, Chloride 105, Carbon Dioxide 23.7, Anion Gap 12, BUN 24 H, Creatinine 0.97, Estim Creat Clear Calc 43.58 L, Est GFR (MDRD) Non-Af 60, BUN/Creatinine Ratio 24.6 H, Glucose 109 H, Calcium 9.7, Total Creatine Kinase 91 10/19/24 14:15: Urine Color Yellow, Urine Clarity Cloudy, Urine pH 7.0, Ur Specific [place] 1.015, Urine Protein 15 H, Urine Glucose (UA) Normal, Urine Ketones 5 H, Urine Occult Blood Negative, Urine Nitrite Negative, Urine Bilirubin Negative, Urine Urobilinogen Normal, Ur Leukocyte Esterase Negative, Urine RBC 0-5 SEEN, Urine WBC 0-5 SEEN, Ur Squamous Epith Cells 0 SEEN, Amorphous Sediment 2+, Urine Bacteria 0 SEEN, Urine Mucus 0 SEEN Imaging Radiology Impression Chest X-Ray 10/19/24 13:30 IMPRESSION: No acute abnormality is seen. Calcified right-sided pleural plaques. Reading Location: [id number] Brain CT 10/19/24 13:50 IMPRESSION: NO SIGNIFICANT CHANGE SINCE THE PRIOR EXAM no acute abnormality is seen. Reading Location: [id number] Assessment & Plan Assessment/Plan (1) Generalized weakness: PLAN: Plan # Generalized weakness, ?confusion - Patient is able to answer orientation questions but does seem a little bit confused, is very poor historian - Hold nortriptyline - Unclear if patient may have taken any Antivert as it is on her medicine list and this could contribute to confusion and falls - Will check UDS - IV fluids - CT of the brain on presentation no acute process - Will check ammonia and B12 #Type 2 diabetes mellitus -Glucose checks and sliding scale insulin #Hypertension -given slight increase in BUN and creatinine (does not meet criteria for JUDSON) patient will be given IV fluids and will hold losartan at this time - Will add as needed in the interim #DVT ppx: SCDs Desiree Awan MD Charges/Coding Visit Charges Inpatient E&M: 00475 Init Hosp L2 10/19/241922 <Electronically signed by Desiree Awan MD> Cosigner Signature (if applicable): CC: Dr. Ruddy Cooper MD; Dr. Desiree Awan MD~ Signed [facility] Work Phone: Hospital Discharge instructions Additional Instructions Follow-up with your doctor to ensure you are improving. Antivert for dizziness. Return if feeling worse.[facility] Work Phone: Reason for referral (narrative)* Diagnostic Procedure Only (Routine) - Closed Specialty Diagnoses / Procedures Referred By George mckeon Referred To Contact XR IMAGING Diagnoses Right knee pain, unspecified chronicity Procedures XR KNEE POST OP 3V AP/LAT/MERCHANT RIGHT RADIOLOGIC EXAMINATION KNEE 3 VIEWS Rigoberto Chase APRN.CNP [address] [place] [address] Xr Imaging Referral ID Status Reason Start Date Expiration Date V isits Requested Visits Authorized [id number] Closed Auto-Generate d Referral 07/18/2021 08/16/2022 1 1 [facility] for referral (narrative)* Diagnostic Procedure Only (Urgent) - Closed Specialty Diagnoses / Procedures Referred By Contac t Referred To Contact XR IMAGING Diagnoses Acute right ankle pain Procedures XR ANKLE GENERAL 3V AP/LAT/OBL RIGHT RADEX ANKLE COMPLETE MINIMUM 3 VIEWS Ruiz Serrato APRN.CNP [address] [place] [address] Xr Imaging Referral ID Status Reason Start Date Expiration Date V isits Requested Visits Authorized [id number] Closed Auto-Generate d Referral 10/08/2021 11/07/2022 1 1 [facility] for referral (narrative)* Diagnostic Procedure Only (Routine) - Authorized Specialty Diagnoses / Procedures [facility] To Contact BR IMAGING Diagnoses Screening breast examination Procedures WILLIE SCREENING SCREENING MAMMOGRAPHY BI 2-VIEW BREAST INC CAD Sheela Celeste PA-C [address] [place] [address] [facility] [address] [place] [address] Referral ID Status Reason Start Date Expiration Date Visits Requested Visits Authorized [id number] Authorized Auto-Generat ed Referral 12/23/2022 01/22/2024 1 1 [facility] for referral (narrative)* Diagnostic Procedure Only (Routine) - Pending Review Specialty Diagnoses / Procedures Referred By Contac t Referred To Contact BR IMAGING Diagnoses Bilateral fibrocystic breast changes Personal history of breast cancer S/P bilateral breast lumpectomy Mass of lower outer quadrant of right breast Procedures US BREAST LTD RIGHT US BREAST UNI REAL TIME WITH IMAGE LIMITED Sheela Celeste PA-C [address] [place] [address] Br Imaging [address] [place] [address] Referral ID Status Reason Start Date Expiration Date Visits Requested Visits Authorized [id number] Pending Review Auto-Generat ed Referral 12/24/2022 01/23/2024 1 1 * Diagnostic Procedure Only (Routine) - Authorized Specialty Diagnoses / Procedures Referred By George mckeon Referred To Contact BR IMAGING Diagnoses Bilateral fibrocystic breast changes Personal history of breast cancer S/P bilateral breast lumpectomy Mass of lower outer quadrant of right breast Procedures WILLIE DIAGNOSTIC BILATERAL DIAGNOSTIC MAMMOGRAPHY COMPUTER-AIDED DETCJ Sheela Celeste PA-C [address] [place] [address] Br Imaging [address] [place] [phone] Referral ID Status Reason Start Date Expiration Date Visits Requested Visits Authorized [id number] Authorized Auto-Generat ed Referral 12/24/2022 01/23/2024 1 1 [facility] for referral (narrative)* Diagnostic Procedure Only (Routine) - Closed Specialty Diagnoses / Procedures Referred By George mckeon Referred To Contact MR IMAGING Diagnoses Intracranial aneurysm Procedures MRA BRAIN WO/W IVCON MRA; HEAD W & WO CONTRAST Adeline Mares, PHYSICIAN ANESTHESIOLOGIST [address] [place] [address] [place] [address] Referral ID Status Reason Start Date Expiration Date Visits Re quested Visits Authorized [id number] Closed 02/27/2023 03/29/2023 1 1 [facility] for referral (narrative)* Diagnostic Procedure Only (Routine) - Authorized Specialty Diagnoses / Procedures Referred By George mckeon Referred To Contact BR IMAGING Diagnoses Screening mammogram for breast cancer Procedures WILLIE SCREENING W AVNI SCREENING DIGITAL BREAST TOMOSYNTHESIS BI SCREENING MAMMOGRAPHY BI 2-VIEW BREAST INC Bradford Walters, RECRUITING ASSISTANT.EXPLORATION DRILLER [address] [place] [address] [facility] Imaging [address] [place] [phone] Referral ID Status Reason Start Date Expiration Date Visits Requested Visits Authorized [id number] Authorized Auto-Generat ed Referral 01/01/2024 01/30/2025 1 1 [facility] for referral (narrative)* Diagnostic Procedure Only (Urgent) - Closed Specialty Diagnoses / Procedures Referred By Contac t Referred To Contact XR IMAGING Diagnoses Acute left ankle pain Foot pain, left Procedures XR FOOT GENERAL 3V AP/LAT/OBL LEFT RADEX FOOT COMPLETE MINIMUM 3 VIEWS Ruiz Serrato APRN.PHYSICIAN ANESTHESIOLOGIST [address] [place] [address] [place] [address] Referral ID Status Reason Start Date Expiration Date V isits Requested Visits Authorized [id number] Closed Auto-Generate d Referral 10/14/2023 11/12/2024 1 1 * Diagnostic Procedure Only (Urgent) - Closed Specialty Diagnoses / Procedures Referred By Contac t Referred To Contact XR IMAGING Diagnoses Acute left ankle pain Foot pain, left Procedures XR ANKLE GENERAL 3V AP/LAT/OBL LEFT RADEX ANKLE COMPLETE MINIMUM 3 VIEWS Ruiz Serrato APRN.PHYSICIAN ANESTHESIOLOGIST [address] [place] [address] [place] [address] Referral ID Status Reason Start Date Expiration Date V isits Requested Visits Authorized [id number] Closed Auto-Generate d Referral 10/14/2023 11/12/2024 1 1 [facility] for referral (narrative)* Diagnostic Procedure Only (Routine) - Closed Specialty Diagnoses / Procedures Referred By Contac t Referred To Contact BR IMAGING Diagnoses Screening mammogram for breast cancer Procedures WILLIE SCREENING W AVNI SCREENING DIGITAL BREAST TOMOSYNTHESIS BI SCREENING MAMMOGRAPHY BI 2-VIEW BREAST INC Bradford Walters APRN.EXPLORATION DRILLER [address] [place] [address] Br Imaging [address] [place] [address] Referral ID Status Reason Start Date Expiration Date V isits Requested Visits Authorized [id number] Closed Auto-Generate d Referral 01/01/2024 01/30/2025 1 1 [facility] for referral (narrative)* Diagnostic Procedure Only (Routine) - Closed Specialty Diagnoses / Procedures Referred By Contac t Referred To Contact BR IMAGING Diagnoses Bilateral fibrocystic breast changes Personal history of breast cancer S/P bilateral breast lumpectomy Mass of lower outer quadrant of right breast Procedures US BREAST LTD RIGHT US BREAST UNI REAL TIME WITH IMAGE LIMITED Sheela Celeste PA-C [address] [place] [address] Br Imaging [address] [place] [address] Referral ID Status Reason Start Date Expiration Date V isits Requested Visits Authorized [id number] Closed Auto-Generate d Referral 12/24/2022 01/23/2024 1 1 [facility] for referral (narrative)* Diagnostic Procedure Only (Urgent) - Closed Specialty Diagnoses / Procedures Referred By Contac t Referred To Contact XR IMAGING Diagnoses Acute right ankle pain Procedures XR ANKLE GENERAL 3V AP/LAT/OBL RIGHT RADEX ANKLE COMPLETE MINIMUM 3 VIEWS Ruiz Serrato APRN.PHYSICIAN ANESTHESIOLOGIST [address] [place] [address] [place] [address] Referral ID Status Reason Start Date Expiration Date V isits Requested Visits Authorized [id number] Closed Auto-Generate d Referral 10/08/2021 11/07/2022 1 1 [facility] for referral (narrative)* Diagnostic Procedure Only (Routine) - Closed Specialty Diagnoses / Procedures Referred By Contac t Referred To Contact XR IMAGING Diagnoses Arthritis of hand Procedures XR HAND GENERAL 3V PA/LAT/OBL BILATERAL RADEX HAND MINIMUM 3 VIEWS Talampas, Ruddy D, MD [address] [place] [address] Xr Imaging [id number] Referral ID Status Reason Start Date Expiration Date V isits Requested Visits Authorized [id number] Closed Auto-Generate d Referral 02/26/2024 03/27/2025 1 1 [facility] for referral (narrative)No reason for referral information availableWSt. [facility] Work Phone: Reason for visit Narrative* Diagnostic Procedure Only (Routine) - Authorized Specialty Diagnoses / Procedures Referred By George mckeon Referred To Contact BR IMAGING Diagnoses Screening breast examination Procedures WILLIE SCREENING SCREENING MAMMOGRAPHY BI 2-VIEW BREAST INC CAD Sheela Celeste PA-C [address] [place] [place] [id number] [facility] Imaging [address] [place] [address] Referral ID Status Reason Start Date Expiration Date Visits Requested Visits Authorized [id number] Authorized Auto-Generat ed Referral 12/23/2022 01/22/2024 1 1 [facility] for visit Narrative* Diagnostic Procedure Only (Routine) - Closed Specialty Diagnoses / Procedures Referred By George mckeon Referred To Contact MR IMAGING Diagnoses Intracranial aneurysm Procedures MRA BRAIN WO/W IVCON MRA; HEAD W & WO CONTRAST Adeline Mares, RECRUITING ASSISTANT.PHYSICIAN ANESTHESIOLOGIST [address] [id number] Mr Imaging [place] [address] Referral ID Status Reason Start Date Expiration Date Visits Re quested Visits Authorized [id number] Closed 02/27/2023 03/29/2023 1 1 [facility] for visit Narrative* Diagnostic Procedure Only (Routine) - Closed Specialty Diagnoses / Procedures Referred By George mckeon Referred To Contact CT IMAGING Diagnoses History of abdominal surgery Abdominal pain, chronic, generalized Procedures CT ABD/PEL WO IVCON CT ABD & PELVIS W/O CONTRAST Bradford Love, RECRUITING ASSISTANT.EXPLORATION DRILLER [address] [place] [address] [place] [address] Referral ID Status Reason Start Date Expiration Date V isits Requested Visits Authorized [id number] Closed Auto-Generate d Referral 09/23/2023 10/23/2023 2 1 [facility] for visit Narrative* Diagnostic Procedure Only (Urgent) - Closed Specialty Diagnoses / Procedures Referred By Contac t Referred To Contact XR IMAGING Diagnoses Acute left ankle pain Foot pain, left Procedures XR FOOT GENERAL 3V AP/LAT/OBL LEFT RADEX FOOT COMPLETE MINIMUM 3 VIEWS Ruiz Serrato, RECRUITING ASSISTANT.PHYSICIAN ANESTHESIOLOGIST [address] [place] [address] [place] [address] Referral ID Status Reason Start Date Expiration Date V isits Requested Visits Authorized [id number] Closed Auto-Generate d Referral 10/14/2023 11/12/2024 1 1 [facility] for visit Narrative* Diagnostic Procedure Only (Routine) - Closed Specialty Diagnoses / Procedures Referred By Contac t Referred To Contact BR IMAGING Diagnoses Screening mammogram for breast cancer Procedures WILLIE SCREENING W AVNI SCREENING DIGITAL BREAST TOMOSYNTHESIS BI SCREENING MAMMOGRAPHY BI 2-VIEW BREAST INC CAD Bradford Love, RECRUITING ASSISTANT.EXPLORATION DRILLER [address] [place] [address] Br Imaging [address] [place] [address] Referral ID Status Reason Start Date Expiration Date V isits Requested Visits Authorized [id number] Closed Auto-Generate d Referral 01/01/2024 01/30/2025 1 1 [facility] for visit Narrative* Diagnostic Procedure Only (Urgent) - Closed Specialty Diagnoses / Procedures Referred By Contac t Referred To Contact XR IMAGING Diagnoses Acute right ankle pain Procedures XR ANKLE GENERAL 3V AP/LAT/OBL RIGHT RADEX ANKLE COMPLETE MINIMUM 3 VIEWS Ruiz Serrato, RECRUITING ASSISTANT.PHYSICIAN ANESTHESIOLOGIST [address] [place] [address] [place] [address] Referral ID Status Reason Start Date Expiration Date V isits Requested Visits Authorized [id number] Closed Auto-Generate d Referral 10/08/2021 11/07/2022 1 [facility] Procedure Only (Routine) - Closed Specialty Diagnoses / Procedures Referred By Contac t Referred To Contact XR IMAGING Diagnoses Arthritis of hand Procedures XR HAND GENERAL 3V PA/LAT/OBL BILATERAL RADEX HAND MINIMUM 3 VIEWS Ruddy Cooper MD [address] [place] [place] [address] [place] [address] Referral ID Status Reason Start Date Expiration Date V isits Requested Visits Authorized [id number] Closed Auto-Generate d Referral 02/26/2024 03/27/2025 1 1 [facility] Summary Purpose Family History Relationship Condition Age at Onset Recorded Date/T jordana Not Specified Hemorrhagic disorder Unknown mother Malignant neoplasm of breast Unknown Hypertension Unknown Alzheimer's disease Unknown aunt Malignant neoplasm of breast Unknown father Coronary artery disease Unknown sister Alzheimer's disease Unknown Advance Directives Documents on File Type Date Recorded 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 Yes August 26, 2024 12:16am Do you have a Healthcare Power of Labor Delivery Rn? Yes September 08, 2024 10:13pm Advance Directives Yes July 06 10:32am Advance Directive Response Recorded Date/ Time Do you have a Healthcare Pow er of Labor Delivery Rn? Yes August 26, 2024 12:16am Do you have a Healthcare Pow er of Labor Delivery Rn? Yes September 08, 2024 10:13pm Do you have a Healthcare Pow er of Labor Delivery Rn? Yes October 10, 2024 2:08pm Name of Medical Power of Labor Delivery Rn Sade Michelle- Daughter October 10, 2024 2:08pm Advance Directives Yes July 06 10:32am Advance Directive Response Recorded Date/ Time Do you have a Healthcare Pow er of Labor Delivery Rn? Yes August 26, 2024 12:16am Do you have a Healthcare Pow er of Labor Delivery Rn? Yes September 08, 2024 10:13pm Do you have a Healthcare Pow er of Labor Delivery Rn? Yes October 10, 2024 6:57pm Name of Medical Power of Labor Delivery Rn Sade fuchs October 10, 2024 6:57pm Advance Directives Yes July 06 10:32am Advance Directive Response Recorded Date/ Time Do you have a Healthcare Pow er of Labor Delivery Rn? Yes October 19, 2024 12:24pm Name of Medical Power of Labor Delivery Rn Sade Michelle October 19, 2024 12:24pm Do you have a Healthcare Pow er of Labor Delivery Rn? Yes August 26, 2024 12:16am Do you have a Healthcare Pow er of Labor Delivery Rn? Yes September 08, 2024 10:13pm Do you have a Healthcare Pow er of Labor Delivery Rn? Yes October 10, 2024 6:57pm Name of Medical Power of Labor Delivery Rn Sade merinoe October 10, 2024 6:57pm Advance Directives Yes July 06 10:32am Chief Complaint and Reason for Visit [...] Physical debility August 25, 2024 11: 50pm Chief Complaint Admit Date SERIAL FALLS ADULT [...] weakness, dizziness September 08, 2024 10:10 pm AMS WITH UTI October 10, 2024 4:33 pm Reason for Visit Admit Date Adult failure to thrive August 25, 2024 11:50pm Multiple falls August 25, 2024 11: 50pm Physical debility August 25, 2024 11: 50pm Confusion October 10, 2024 4:33 pm Lactic acidosis October 10, 2024 4:33 pm Urinary tract infection October 10, 2024 4:33pm Chief Complaint Admit Date SERIAL FALLS ADULT [...] weakness, dizziness September 08, 2024 10:10 pm AMS WITH UTI October 10, 2024 4:33 pm AMS WITH UTI October 10, 2024 4:40 pm AMS WITH UTI October 11, 2024 9:56 am AMS WITH UTI October 12, 2024 1:59 pm Chief Complaint Admit Date SERIAL FALLS ADULT [...] weakness, dizziness September 08, 2024 10:10 pm AMS WITH UTI October 10, 2024 4:33 pm AMS WITH UTI October 10, 2024 4:40 pm AMS WITH UTI October 11, 2024 9:56 am AMS WITH UTI October 12, 2024 1:59 pm FALL GENERAL WEAKNESS October 19, 2024 7: 08pm Reason for Visit Admit Date Adult failure to thrive August 25, 2024 11:50pm Multiple falls August 25, 2024 11: 50pm Physical debility August 25, 2024 11: 50pm Confusion October 10, 2024 4:33 pm Lactic acidosis October 10, 2024 4:33 pm Urinary tract infection October 10, 2024 4:33pm Generalized weakness October 19, 2024 7:0 8pm Medications Administered Section Inactive Administered Medications - [...] over 15 Minutes, ONCE, 1 dose, On Fri04/18/22 at 1200, Hazardous Potential Reproductive Risk Drug: Use appropriate PPE. Refrigerate. New Bag/Syringe/Bottle 04/18/2022 11:46 AM EST 3.5 mg Reason for Referral Specialty Diagnoses / Procedures Referred By George t Referred To Contact [facility] Diagnoses Insufficiency of right posterior tibial tendon Procedures PT REHAB FOLLOW UP ORDER THERAPEUTIC EXERCISES RE, EA 15 MIN. Pt [facility] [address] [place] [address] [facility] [place] [address] [place] [address] Referral ID Status Reason Start Date Expiration Date Visits Requested Visits Authorized [id number] Pending Review PCP Requested Referral Auto-Generate d Referral 10/31/2021 01/29/2022 1 1 Specialty Diagnoses / Procedures Referred By Contac t Referred To Contact MR IMAGING Diagnoses Intracranial aneurysm Procedures MRA BRAIN WO/W IVCON MRA; HEAD W & WO CONTRAST Adeline Mares, RECRUITING ASSISTANT.PHYSICIAN ANESTHESIOLOGIST [address] [place] [address] Mr Imaging Referral ID Status Reason Start Date Expiration Date Visits Requested Visits Authorized [id number] Pending Review Auto-Generat ed Referral 02/26/2023 03/31/2023 1 1 Specialty Diagnoses / Procedures Referred By Contac t Referred To Contact MR IMAGING Diagnoses Nonruptured cerebral aneurysm Procedures MRA BRAIN WO/W IVCON MRA; HEAD W & WO CONTRAST Gamaliel Reardon, RECRUITING ASSISTANT.PHYSICIAN ANESTHESIOLOGIST [address] [place] [address] [place] [address] Referral ID Status Reason Start Date Expiration Date V isits Requested Visits Authorized [id number] Closed Auto-Generate d Referral 02/18/2022 03/20/2022 1 1 Specialty Diagnoses / Procedures Referred By Contac t Referred To Contact [facility] Diagnoses Gait difficulty Complaints of leg weakness Procedures CONSULT TO PHYSICAL THERAPY PHYSICAL THERAPY EVALUATION HIGH COMPLEX 45 MINS Bradford Love, RECRUITING ASSISTANT.EXPLORATION DRILLER [address] [place] [address] [facility] [place] [address] [place] [address] Referral ID Status Reason Start Date Expiration Date Visits Requested Visits Authorized [id number] Pending Review Auto-Generat ed Referral 09/08/2023 09/07/2024 1 1 Specialty Diagnoses / Procedures Referred By Contac t Referred To Contact CT IMAGING Diagnoses History of abdominal surgery Abdominal pain, chronic, generalized Procedures CT ABD/PEL WO IVCON CT ABD & PELVIS W/O CONTRAST Bradford Love, RECRUITING ASSISTANT.EXPLORATION DRILLER [address] [place] [address] [place] [address] Referral ID Status Reason Start Date Expiration Date Visits Requested Visits Authorized [id number] Pending Review Auto-Generat ed Referral 09/08/2023 10/07/2024 1 1 Specialty Diagnoses / Procedures Referred By Contac t Referred To Contact Ophthalmology Diagnoses Screening for diabetic retinopathy Procedures CONSULT TO OPHTHALMOLOGY OFFICE/OUTPATIENT [facility] 60 MINUTES Bradford Love, RECRUITING ASSISTANT.EXPLORATION DRILLER [address] [place] [address] Referral ID Status Reason Start Date Expiration Date Visits Requested Visits Authorized [id number] Authorized PCP Requested Referral 09/08/2023 09/07/2024 1 1 Specialty Diagnoses / Procedures Referred By Contac t Referred To Contact [facility] Diagnoses Gait difficulty Complaints of leg weakness Procedures PT REHAB FOLLOW UP ORDER THERAPEUTIC EXERCISES RE, EA 15 MIN. Charleen Rocha, PT [facility] [place] [address] [place] [address] Referral ID Status Reason Start Date Expiration Date Visits Requested Visits Authorized [id number] Pending Review PCP Requested Referral Auto-Generate d Referral 09/29/2023 12/28/2023 1 1 Specialty Diagnoses / Procedures Referred By Contac t Referred To Contact Podiatry Diagnoses Acute left ankle pain Foot pain, left Procedures CONSULT TO PODIATRY OFFICE/OUTPATIENT [facility] 60 MINUTES Ruiz Serrato, RECRUITING ASSISTANT.PHYSICIAN ANESTHESIOLOGIST [address] [place] [address] Referral ID Status Reason Start Date Expiration Date Visits Requested Visits Authorized [id number] Authorized PCP Requested Referral 10/14/2023 10/13/2024 1 1 Specialty Diagnoses / Procedures Referred By Contac t Referred To Contact XR IMAGING Diagnoses Acute left ankle pain Foot pain, left Procedures XR FOOT GENERAL 3V AP/LAT/OBL LEFT RADEX FOOT COMPLETE MINIMUM 3 VIEWS Ruiz Serrato, RECRUITING ASSISTANT.PHYSICIAN ANESTHESIOLOGIST [address] [place] [address] [place] [address] Referral ID Status Reason Start Date Expiration Date V isits Requested Visits Authorized [id number] Closed Auto-Generate d Referral 10/14/2023 11/12/2024 1 1 Specialty Diagnoses / Procedures Referred By Contac t Referred To Contact XR IMAGING Diagnoses Acute left ankle pain Foot pain, left Procedures XR ANKLE GENERAL 3V AP/LAT/OBL LEFT RADEX ANKLE COMPLETE MINIMUM 3 VIEWS Ruiz Serrato, RECRUITING ASSISTANT.PHYSICIAN ANESTHESIOLOGIST [address] [place] [address] [place] [address] Referral ID Status Reason Start Date Expiration Date V isits Requested Visits Authorized [id number] Closed Auto-Generate d Referral 10/14/2023 11/12/2024 1 1 Specialty Diagnoses / Procedures Referred By Contac t Referred To Contact [facility] Diagnoses Generalized abdominal pain History of abdominal surgery Procedures CONSULT TO PHYSICAL THERAPY PHYSICAL THERAPY EVALUATION HIGH COMPLEX 45 MINS Ruddy Cooper MD [address] [place] [id number] [facility] [place] [address] [place] [address] Referral ID Status Reason Start Date Expiration Date Visits Requested Visits Authorized [id number] Pending Review Auto-Generat ed Referral 10/13/2023 10/12/2024 1 1 Specialty Diagnoses / Procedures Referred By Contac t Referred To Contact [facility] Diagnoses Complaints of leg weakness Gait difficulty Procedures PT REHAB FOLLOW UP ORDER THERAPEUTIC EXERCISES RE, EA 15 MIN. Charleen Rocha, PT [facility] [address] [address] Referral ID Status Reason Start Date Expiration Date Visits Requested Visits Authorized [id number] New Request PCP Requested Referral Auto-Generate d Referral 11/26/2023 02/24/2024 1 1 Referral ID Status Reason Start Date Expiration Date Visits Requested Visits Authorized [id number] New Request PCP Requested Referral Auto-Generate d Referral 12/16/2023 03/15/2024 1 1 Specialty Diagnoses / Procedures Referred By Contac t Referred To Contact Ent - Otolaryngology Diagnoses Tinnitus of both ears Procedures CONSULT TO ENT OFFICE/OUTPATIENT [facility] MDM 60 MINUTES Bradford Love, RECRUITING ASSISTANT.EXPLORATION DRILLER [address] [place] [address] Referral ID Status Reason Start Date Expiration Date Visits Requested Visits Authorized [id number] Authorized PCP Requested Referral 12/19/2023 12/18/2024 1 1 Specialty Diagnoses / Procedures Referred By Contac t Referred To Contact [facility] Diagnoses Hypertension Syncope, unspecified syncope type Procedures ECHO ECHO TTHRC R-T 2D W/WOM-MODE COMPL SPEC&COLR D Bradford Love, RECRUITING ASSISTANT.EXPLORATION DRILLER [address] [place] [address] [facility] [place] [address] [place] [address] Referral ID Status Reason Start Date Expiration Date Visits Requested Visits Authorized [id number] Pending Review Auto-Generat ed Referral 12/19/2023 12/18/2024 1 1 Additional Source Comments INFORMATION SOURCE (unrecogn ized section and content) DATE CREATED AUTHOR 12/16/2020 [facility] DATE CREATED AUTHOR AUTHOR'S ORGANIZ ATION 08/08/2021 [facility] DATE CREATED AUTHOR AUTHOR'S ORGANIZ ATION 10/18/2024 [facility] DATE CREATED AUTHOR AUTHOR'S ORGANIZ ATION 10/19/2024 [facility] Source Comments (unrecognize d section and content) In the event this informatio n is protected by the Federal Confidentiality of Alcohol and Drug Abuse Patient Records regulations: The Federal rules restrict any use of the information to criminally investigate or prosecute any alcohol or drug abuse patient.[facility] the event this information is protected by the Federal Confidentiality of Alcohol and Drug Abuse Patient Records regulations: The Federal rules restrict any use of the information to criminally investigate or prosecute any alcohol or drug abuse patient.[facility] Hospital[facility] the event this information is protected by the Federal Confidentiality of Alcohol and Drug Abuse Patient Records regulations: The Federal rules restrict any use of the information to criminally investigate or prosecute any alcohol or drug abuse patient.[facility] Hospital[facility] the event this information is protected by the Federal Confidentiality of Alcohol and Drug Abuse Patient Records regulations: The Federal rules restrict any use of the information to criminally investigate or prosecute any alcohol or drug abuse patient.[facility] Hospital[facility] the event this information is protected by the Federal Confidentiality of Alcohol and Drug Abuse Patient Records regulations: The Federal rules restrict any use of the information to criminally investigate or prosecute any alcohol or drug abuse patient.[facility] Hospital[facility] the event this information is protected by the Federal Confidentiality of Alcohol and Drug Abuse Patient Records regulations: The Federal rules restrict any use of the information to criminally investigate or prosecute any alcohol or drug abuse patient.[facility] Hospital[facility] the event this information is protected by the Federal Confidentiality of Alcohol and Drug Abuse Patient Records regulations: The Federal rules restrict any use of the information to criminally investigate or prosecute any alcohol or drug abuse patient.[facility] HospitalIn the event this information is protected by the Federal Confidentiality of Alcohol and Drug Abuse Patient Records regulations: The Federal rules restrict any use of the information to criminally investigate or prosecute any alcohol or drug abuse patient.[facility] HospitalIn the event this information is protected by the Federal Confidentiality of Alcohol and Drug Abuse Patient Records regulations: The Federal rules restrict any use of the information to criminally investigate or prosecute any alcohol or drug abuse patient.[facility] HospitalIn the event this information is protected by the Federal Confidentiality of Alcohol and Drug Abuse Patient Records regulations: The Federal rules restrict any use of the information to criminally investigate or prosecute any alcohol or drug abuse patient.[facility] HospitalIn the event this information is protected by the Federal Confidentiality of Alcohol and Drug Abuse Patient Records regulations: The Federal rules restrict any use of the information to criminally investigate or prosecute any alcohol or drug abuse patient.[facility] HospitalIn the event this information is protected by the Federal Confidentiality of Alcohol and Drug Abuse Patient Records regulations: The Federal rules restrict any use of the information to criminally investigate or prosecute any alcohol or drug abuse patient.[facility] HospitalIn the event this information is protected by the Federal Confidentiality of Alcohol and Drug Abuse Patient Records regulations: The Federal rules restrict any use of the information to criminally investigate or prosecute any alcohol or drug abuse patient.[facility] HospitalIn the event this information is protected by the Federal Confidentiality of Alcohol and Drug Abuse Patient Records regulations: The Federal rules restrict any use of the information to criminally investigate or prosecute any alcohol or drug abuse patient.[facility] HospitalIn the event this information is protected by the Federal Confidentiality of Alcohol and Drug Abuse Patient Records regulations: The Federal rules restrict any use of the information to criminally investigate or prosecute any alcohol or drug abuse patient.[facility] HospitalIn the event this information is protected by the Federal Confidentiality of Alcohol and Drug Abuse Patient Records regulations: The Federal rules restrict any use of the information to criminally investigate or prosecute any alcohol or drug abuse patient.[facility] HospitalIn the event this information is protected by the Federal Confidentiality of Alcohol and Drug Abuse Patient Records regulations: The Federal rules restrict any use of the information to criminally investigate or prosecute any alcohol or drug abuse patient.[facility] HospitalIn the event this information is protected by the Federal Confidentiality of Alcohol and Drug Abuse Patient Records regulations: The Federal rules restrict any use of the information to criminally investigate or prosecute any alcohol or drug abuse patient.[facility] HospitalIn the event this information is protected by the Federal Confidentiality of Alcohol and Drug Abuse Patient Records regulations: The Federal rules restrict any use of the information to criminally investigate or prosecute any alcohol or drug abuse patient.[facility] HospitalIn the event this information is protected by the Federal Confidentiality of Alcohol and Drug Abuse Patient Records regulations: The Federal rules restrict any use of the information to criminally investigate or prosecute any alcohol or drug abuse patient.[facility] HospitalIn the event this information is protected by the Federal Confidentiality of Alcohol and Drug Abuse Patient Records regulations: The Federal rules restrict any use of the information to criminally investigate or prosecute any alcohol or drug abuse patient.[facility] HospitalIn the event this information is protected by the Federal Confidentiality of Alcohol and Drug Abuse Patient Records regulations: The Federal rules restrict any use of the information to criminally investigate or prosecute any alcohol or drug abuse patient.[facility] HospitalIn the event this information is protected by the Federal Confidentiality of Alcohol and Drug Abuse Patient Records regulations: The Federal rules restrict any use of the information to criminally investigate or prosecute any alcohol or drug abuse patient.[facility] HospitalIn the event this information is protected by the Federal Confidentiality of Alcohol and Drug Abuse Patient Records regulations: The Federal rules restrict any use of the information to criminally investigate or prosecute any alcohol or drug abuse patient.[facility] HospitalIn the event this information is protected by the Federal Confidentiality of Alcohol and Drug Abuse Patient Records regulations: The Federal rules restrict any use of the information to criminally investigate or prosecute any alcohol or drug abuse patient.[facility] HospitalIn the event this information is protected by the Federal Confidentiality of Alcohol and Drug Abuse Patient Records regulations: The Federal rules restrict any use of the information to criminally investigate or prosecute any alcohol or drug abuse patient.[facility] HospitalIn the event this information is protected by the Federal Confidentiality of Alcohol and Drug Abuse Patient Records regulations: The Federal rules restrict any use of the information to criminally investigate or prosecute any alcohol or drug abuse patient.[facility] HospitalIn the event this information is protected by the Federal Confidentiality of Alcohol and Drug Abuse Patient Records regulations: The Federal rules restrict any use of the information to criminally investigate or prosecute any alcohol or drug abuse patient.[facility] HospitalIn the event this information is protected by the Federal Confidentiality of Alcohol and Drug Abuse Patient Records regulations: The Federal rules restrict any use of the information to criminally investigate or prosecute any alcohol or drug abuse patient.[facility] HospitalIn the event this information is protected by the Federal Confidentiality of Alcohol and Drug Abuse Patient Records regulations: The Federal rules restrict any use of the information to criminally investigate or prosecute any alcohol or drug abuse patient.[facility] HospitalIn the event this information is protected by the Federal Confidentiality of Alcohol and Drug Abuse Patient Records regulations: The Federal rules restrict any use of the information to criminally investigate or prosecute any alcohol or drug abuse patient.[facility] HospitalIn the event this information is protected by the Federal Confidentiality of Alcohol and Drug Abuse Patient Records regulations: The Federal rules restrict any use of the information to criminally investigate or prosecute any alcohol or drug abuse patient.[facility] HospitalIn the event this information is protected by the Federal Confidentiality of Alcohol and Drug Abuse Patient Records regulations: The Federal rules restrict any use of the information to criminally investigate or prosecute any alcohol or drug abuse patient.[facility] HospitalIn the event this information is protected by the Federal Confidentiality of Alcohol and Drug Abuse Patient Records regulations: The Federal rules restrict any use of the information to criminally investigate or prosecute any alcohol or drug abuse patient.[facility] HospitalIn the event this information is protected by the Federal Confidentiality of Alcohol and Drug Abuse Patient Records regulations: The Federal rules restrict any use of the information to criminally investigate or prosecute any alcohol or drug abuse patient.[facility] HospitalIn the event this information is protected by the Federal Confidentiality of Alcohol and Drug Abuse Patient Records regulations: The Federal rules restrict any use of the information to criminally investigate or prosecute any alcohol or drug abuse patient.[facility] HospitalIn the event this information is protected by the Federal Confidentiality of Alcohol and Drug Abuse Patient Records regulations: The Federal rules restrict any use of the information to criminally investigate or prosecute any alcohol or drug abuse patient.[facility] HospitalIn the event this information is protected by the Federal Confidentiality of Alcohol and Drug Abuse Patient Records regulations: The Federal rules restrict any use of the information to criminally investigate or prosecute any alcohol or drug abuse patient.[facility] HospitalIn the event this information is protected by the Federal Confidentiality of Alcohol and Drug Abuse Patient Records regulations: The Federal rules restrict any use of the information to criminally investigate or prosecute any alcohol or drug abuse patient.[facility] HospitalIn the event this information is protected by the Federal Confidentiality of Alcohol and Drug Abuse Patient Records regulations: The Federal rules restrict any use of the information to criminally investigate or prosecute any alcohol or drug abuse patient.[facility] HospitalIn the event this information is protected by the Federal Confidentiality of Alcohol and Drug Abuse Patient Records regulations: The Federal rules restrict any use of the information to criminally investigate or prosecute any alcohol or drug abuse patient.[facility] HospitalIn the event this information is protected by the Federal Confidentiality of Alcohol and Drug Abuse Patient Records regulations: The Federal rules restrict any use of the information to criminally investigate or prosecute any alcohol or drug abuse patient.[facility] HospitalIn the event this information is protected by the Federal Confidentiality of Alcohol and Drug Abuse Patient Records regulations: The Federal rules restrict any use of the information to criminally investigate or prosecute any alcohol or drug abuse patient.[facility] HospitalIn the event this information is protected by the Federal Confidentiality of Alcohol and Drug Abuse Patient Records regulations: The Federal rules restrict any use of the information to criminally investigate or prosecute any alcohol or drug abuse patient.[facility] HospitalIn the event this information is protected by the Federal Confidentiality of Alcohol and Drug Abuse Patient Records regulations: The Federal rules restrict any use of the information to criminally investigate or prosecute any alcohol or drug abuse patient.[facility] HospitalIn the event this information is protected by the Federal Confidentiality of Alcohol and Drug Abuse Patient Records regulations: The Federal rules restrict any use of the information to criminally investigate or prosecute any alcohol or drug abuse patient.[facility] HospitalIn the event this information is protected by the Federal Confidentiality of Alcohol and Drug Abuse Patient Records regulations: The Federal rules restrict any use of the information to criminally investigate or prosecute any alcohol or drug abuse patient.[facility] HospitalIn the event this information is protected by the Federal Confidentiality of Alcohol and Drug Abuse Patient Records regulations: The Federal rules restrict any use of the information to criminally investigate or prosecute any alcohol or drug abuse patient.[facility] HospitalIn the event this information is protected by the Federal Confidentiality of Alcohol and Drug Abuse Patient Records regulations: The Federal rules restrict any use of the information to criminally investigate or prosecute any alcohol or drug abuse patient.[facility] HospitalIn the event this information is protected by the Federal Confidentiality of Alcohol and Drug Abuse Patient Records regulations: The Federal rules restrict any use of the information to criminally investigate or prosecute any alcohol or drug abuse patient.[facility] HospitalIn the event this information is protected by the Federal Confidentiality of Alcohol and Drug Abuse Patient Records regulations: The Federal rules restrict any use of the information to criminally investigate or prosecute any alcohol or drug abuse patient.[facility] HospitalIn the event this information is protected by the Federal Confidentiality of Alcohol and Drug Abuse Patient Records regulations: The Federal rules restrict any use of the information to criminally investigate or prosecute any alcohol or drug abuse patient.[facility] HospitalIn the event this information is protected by the Federal Confidentiality of Alcohol and Drug Abuse Patient Records regulations: The Federal rules restrict any use of the information to criminally investigate or prosecute any alcohol or drug abuse patient.[facility] HospitalIn the event this information is protected by the Federal Confidentiality of Alcohol and Drug Abuse Patient Records regulations: The Federal rules restrict any use of the information to criminally investigate or prosecute any alcohol or drug abuse patient.[facility] HospitalIn the event this information is protected by the Federal Confidentiality of Alcohol and Drug Abuse Patient Records regulations: The Federal rules restrict any use of the information to criminally investigate or prosecute any alcohol or drug abuse patient.[facility] HospitalIn the event this information is protected by the Federal Confidentiality of Alcohol and Drug Abuse Patient Records regulations: The Federal rules restrict any use of the information to criminally investigate or prosecute any alcohol or drug abuse patient.[facility] HospitalIn the event this information is protected by the Federal Confidentiality of Alcohol and Drug Abuse Patient Records regulations: The Federal rules restrict any use of the information to criminally investigate or prosecute any alcohol or drug abuse patient.[facility] HospitalIn the event this information is protected by the Federal Confidentiality of Alcohol and Drug Abuse Patient Records regulations: The Federal rules restrict any use of the information to criminally investigate or prosecute any alcohol or drug abuse patient.[facility] HospitalIn the event this information is protected by the Federal Confidentiality of Alcohol and Drug Abuse Patient Records regulations: The Federal rules restrict any use of the information to criminally investigate or prosecute any alcohol or drug abuse patient.[facility] HospitalIn the event this information is protected by the Federal Confidentiality of Alcohol and Drug Abuse Patient Records regulations: The Federal rules restrict any use of the information to criminally investigate or prosecute any alcohol or drug abuse patient.[facility] HospitalIn the event this information is protected by the Federal Confidentiality of Alcohol and Drug Abuse Patient Records regulations: The Federal rules restrict any use of the information to criminally investigate or prosecute any alcohol or drug abuse patient.[facility] HospitalIn the event this information is protected by the Federal Confidentiality of Alcohol and Drug Abuse Patient Records regulations: The Federal rules restrict any use of the information to criminally investigate or prosecute any alcohol or drug abuse patient.[facility] HospitalIn the event this information is protected by the Federal Confidentiality of Alcohol and Drug Abuse Patient Records regulations: The Federal rules restrict any use of the information to criminally investigate or prosecute any alcohol or drug abuse patient.[facility] HospitalIn the event this information is protected by the Federal Confidentiality of Alcohol and Drug Abuse Patient Records regulations: The Federal rules restrict any use of the information to criminally investigate or prosecute any alcohol or drug abuse patient.[facility] HospitalIn the event this information is protected by the Federal Confidentiality of Alcohol and Drug Abuse Patient Records regulations: The Federal rules restrict any use of the information to criminally investigate or prosecute any alcohol or drug abuse patient.[facility] HospitalIn the event this information is protected by the Federal Confidentiality of Alcohol and Drug Abuse Patient Records regulations: The Federal rules restrict any use of the information to criminally investigate or prosecute any alcohol or drug abuse patient.[facility] HospitalIn the event this information is protected by the Federal Confidentiality of Alcohol and Drug Abuse Patient Records regulations: The Federal rules restrict any use of the information to criminally investigate or prosecute any alcohol or drug abuse patient.[facility] HospitalIn the event this information is protected by the Federal Confidentiality of Alcohol and Drug Abuse Patient Records regulations: The Federal rules restrict any use of the information to criminally investigate or prosecute any alcohol or drug abuse patient.[facility] HospitalIn the event this information is protected by the Federal Confidentiality of Alcohol and Drug Abuse Patient Records regulations: The Federal rules restrict any use of the information to criminally investigate or prosecute any alcohol or drug abuse patient.[facility] HospitalIn the event this information is protected by the Federal Confidentiality of Alcohol and Drug Abuse Patient Records regulations: The Federal rules restrict any use of the information to criminally investigate or prosecute any alcohol or drug abuse patient.[facility] HospitalIn the event this information is protected by the Federal Confidentiality of Alcohol and Drug Abuse Patient Records regulations: The Federal rules restrict any use of the information to criminally investigate or prosecute any alcohol or drug abuse patient.[facility] HospitalIn the event this information is protected by the Federal Confidentiality of Alcohol and Drug Abuse Patient Records regulations: The Federal rules restrict any use of the information to criminally investigate or prosecute any alcohol or drug abuse patient.[facility] HospitalIn the event this information is protected by the Federal Confidentiality of Alcohol and Drug Abuse Patient Records regulations: The Federal rules restrict any use of the information to criminally investigate or prosecute any alcohol or drug abuse patient.[facility] HospitalIn the event this information is protected by the Federal Confidentiality of Alcohol and Drug Abuse Patient Records regulations: The Federal rules restrict any use of the information to criminally investigate or prosecute any alcohol or drug abuse patient.[facility] HospitalIn the event this information is protected by the Federal Confidentiality of Alcohol and Drug Abuse Patient Records regulations: The Federal rules restrict any use of the information to criminally investigate or prosecute any alcohol or drug abuse patient.[facility] HospitalIn the event this information is protected by the Federal Confidentiality of Alcohol and Drug Abuse Patient Records regulations: The Federal rules restrict any use of the information to criminally investigate or prosecute any alcohol or drug abuse patient.[facility] HospitalIn the event this information is protected by the Federal Confidentiality of Alcohol and Drug Abuse Patient Records regulations: The Federal rules restrict any use of the information to criminally investigate or prosecute any alcohol or drug abuse patient.[facility] HospitalIn the event this information is protected by the Federal Confidentiality of Alcohol and Drug Abuse Patient Records regulations: The Federal rules restrict any use of the information to criminally investigate or prosecute any alcohol or drug abuse patient.[facility] HospitalIn the event this information is protected by the Federal Confidentiality of Alcohol and Drug Abuse Patient Records regulations: The Federal rules restrict any use of the information to criminally investigate or prosecute any alcohol or drug abuse patient.[facility] HospitalIn the event this information is protected by the Federal Confidentiality of Alcohol and Drug Abuse Patient Records regulations: The Federal rules restrict any use of the information to criminally investigate or prosecute any alcohol or drug abuse patient.[facility] HospitalIn the event this information is protected by the Federal Confidentiality of Alcohol and Drug Abuse Patient Records regulations: The Federal rules restrict any use of the information to criminally investigate or prosecute any alcohol or drug abuse patient.[facility] HospitalIn the event this information is protected by the Federal Confidentiality of Alcohol and Drug Abuse Patient Records regulations: The Federal rules restrict any use of the information to criminally investigate or prosecute any alcohol or drug abuse patient.[facility] HospitalIn the event this information is protected by the Federal Confidentiality of Alcohol and Drug Abuse Patient Records regulations: The Federal rules restrict any use of the information to criminally investigate or prosecute any alcohol or drug abuse patient.[facility] HospitalIn the event this information is protected by the Federal Confidentiality of Alcohol and Drug Abuse Patient Records regulations: The Federal rules restrict any use of the information to criminally investigate or prosecute any alcohol or drug abuse patient.[facility] HospitalIn the event this information is protected by the Federal Confidentiality of Alcohol and Drug Abuse Patient Records regulations: The Federal rules restrict any use of the information to criminally investigate or prosecute any alcohol or drug abuse patient.[facility] HospitalIn the event this information is protected by the Federal Confidentiality of Alcohol and Drug Abuse Patient Records regulations: The Federal rules restrict any use of the information to criminally investigate or prosecute any alcohol or drug abuse patient.[facility] HospitalIn the event this information is protected by the Federal Confidentiality of Alcohol and Drug Abuse Patient Records regulations: The Federal rules restrict any use of the information to criminally investigate or prosecute any alcohol or drug abuse patient.[facility] HospitalIn the event this information is protected by the Federal Confidentiality of Alcohol and Drug Abuse Patient Records regulations: The Federal rules restrict any use of the information to criminally investigate or prosecute any alcohol or drug abuse patient.[facility] HospitalIn the event this information is protected by the Federal Confidentiality of Alcohol and Drug Abuse Patient Records regulations: The Federal rules restrict any use of the information to criminally investigate or prosecute any alcohol or drug abuse patient.[facility] HospitalIn the event this information is protected by the Federal Confidentiality of Alcohol and Drug Abuse Patient Records regulations: The Federal rules restrict any use of the information to criminally investigate or prosecute any alcohol or drug abuse patient.[facility] HospitalIn the event this information is protected by the Federal Confidentiality of Alcohol and Drug Abuse Patient Records regulations: The Federal rules restrict any use of the information to criminally investigate or prosecute any alcohol or drug abuse patient.[facility] HospitalIn the event this information is protected by the Federal Confidentiality of Alcohol and Drug Abuse Patient Records regulations: The Federal rules restrict any use of the information to criminally investigate or prosecute any alcohol or drug abuse patient.[facility] HospitalIn the event this information is protected by the Federal Confidentiality of Alcohol and Drug Abuse Patient Records regulations: The Federal rules restrict any use of the information to criminally investigate or prosecute any alcohol or drug abuse patient.[facility] HospitalIn the event this information is protected by the Federal Confidentiality of Alcohol and Drug Abuse Patient Records regulations: The Federal rules restrict any use of the information to criminally investigate or prosecute any alcohol or drug abuse patient.[facility] HospitalIn the event this information is protected by the Federal Confidentiality of Alcohol and Drug Abuse Patient Records regulations: The Federal rules restrict any use of the information to criminally investigate or prosecute any alcohol or drug abuse patient.[facility] HospitalIn the event this information is protected by the Federal Confidentiality of Alcohol and Drug Abuse Patient Records regulations: The Federal rules restrict any use of the information to criminally investigate or prosecute any alcohol or drug abuse patient.[facility] HospitalIn the event this information is protected by the Federal Confidentiality of Alcohol and Drug Abuse Patient Records regulations: The Federal rules restrict any use of the information to criminally investigate or prosecute any alcohol or drug abuse patient.[facility] HospitalIn the event this information is protected by the Federal Confidentiality of Alcohol and Drug Abuse Patient Records regulations: The Federal rules restrict any use of the information to criminally investigate or prosecute any alcohol or drug abuse patient.[facility] HospitalIn the event this information is protected by the Federal Confidentiality of Alcohol and Drug Abuse Patient Records regulations: The Federal rules restrict any use of the information to criminally investigate or prosecute any alcohol or drug abuse patient.[facility] HospitalIn the event this information is protected by the Federal Confidentiality of Alcohol and Drug Abuse Patient Records regulations: The Federal rules restrict any use of the information to criminally investigate or prosecute any alcohol or drug abuse patient.[facility] HospitalIn the event this information is protected by the Federal Confidentiality of Alcohol and Drug Abuse Patient Records regulations: The Federal rules restrict any use of the information to criminally investigate or prosecute any alcohol or drug abuse patient.[facility] HospitalIn the event this information is protected by the Federal Confidentiality of Alcohol and Drug Abuse Patient Records regulations: The Federal rules restrict any use of the information to criminally investigate or prosecute any alcohol or drug abuse patient.[facility] HospitalIn the event this information is protected by the Federal Confidentiality of Alcohol and Drug Abuse Patient Records regulations: The Federal rules restrict any use of the information to criminally investigate or prosecute any alcohol or drug abuse patient.[facility] HospitalIn the event this information is protected by the Federal Confidentiality of Alcohol and Drug Abuse Patient Records regulations: The Federal rules restrict any use of the information to criminally investigate or prosecute any alcohol or drug abuse patient.[facility] HospitalIn the event this information is protected by the Federal Confidentiality of Alcohol and Drug Abuse Patient Records regulations: The Federal rules restrict any use of the information to criminally investigate or prosecute any alcohol or drug abuse patient.[facility] HospitalIn the event this information is protected by the Federal Confidentiality of Alcohol and Drug Abuse Patient Records regulations: The Federal rules restrict any use of the information to criminally investigate or prosecute any alcohol or drug abuse patient.[facility] HospitalIn the event this information is protected by the Federal Confidentiality of Alcohol and Drug Abuse Patient Records regulations: The Federal rules restrict any use of the information to criminally investigate or prosecute any alcohol or drug abuse patient.[facility] HospitalIn the event this information is protected by the Federal Confidentiality of Alcohol and Drug Abuse Patient Records regulations: The Federal rules restrict any use of the information to criminally investigate or prosecute any alcohol or drug abuse patient.[facility] HospitalIn the event this information is protected by the Federal Confidentiality of Alcohol and Drug Abuse Patient Records regulations: The Federal rules restrict any use of the information to criminally investigate or prosecute any alcohol or drug abuse patient.[facility] HospitalIn the event this information is protected by the Federal Confidentiality of Alcohol and Drug Abuse Patient Records regulations: The Federal rules restrict any use of the information to criminally investigate or prosecute any alcohol or drug abuse patient.[facility] HospitalIn the event this information is protected by the Federal Confidentiality of Alcohol and Drug Abuse Patient Records regulations: The Federal rules restrict any use of the information to criminally investigate or prosecute any alcohol or drug abuse patient.[facility] HospitalIn the event this information is protected by the Federal Confidentiality of Alcohol and Drug Abuse Patient Records regulations: The Federal rules restrict any use of the information to criminally investigate or prosecute any alcohol or drug abuse patient.[facility] HospitalIn the event this information is protected by the Federal Confidentiality of Alcohol and Drug Abuse Patient Records regulations: The Federal rules restrict any use of the information to criminally investigate or prosecute any alcohol or drug abuse patient.[facility] HospitalIn the event this information is protected by the Federal Confidentiality of Alcohol and Drug Abuse Patient Records regulations: The Federal rules restrict any use of the information to criminally investigate or prosecute any alcohol or drug abuse patient.[facility] HospitalIn the event this information is protected by the Federal Confidentiality of Alcohol and Drug Abuse Patient Records regulations: The Federal rules restrict any use of the information to criminally investigate or prosecute any alcohol or drug abuse patient.[facility] HospitalIn the event this information is protected by the Federal Confidentiality of Alcohol and Drug Abuse Patient Records regulations: The Federal rules restrict any use of the information to criminally investigate or prosecute any alcohol or drug abuse patient.[facility] HospitalIn the event this information is protected by the Federal Confidentiality of Alcohol and Drug Abuse Patient Records regulations: The Federal rules restrict any use of the information to criminally investigate or prosecute any alcohol or drug abuse patient.[facility] HospitalIn the event this information is protected by the Federal Confidentiality of Alcohol and Drug Abuse Patient Records regulations: The Federal rules restrict any use of the information to criminally investigate or prosecute any alcohol or drug abuse patient.[facility] HospitalIn the event this information is protected by the Federal Confidentiality of Alcohol and Drug Abuse Patient Records regulations: The Federal rules restrict any use of the information to criminally investigate or prosecute any alcohol or drug abuse patient.[facility] HospitalIn the event this information is protected by the Federal Confidentiality of Alcohol and Drug Abuse Patient Records regulations: The Federal rules restrict any use of the information to criminally investigate or prosecute any alcohol or drug abuse patient.[facility] HospitalIn the event this information is protected by the Federal Confidentiality of Alcohol and Drug Abuse Patient Records regulations: The Federal rules restrict any use of the information to criminally investigate or prosecute any alcohol or drug abuse patient.[facility] HospitalIn the event this information is protected by the Federal Confidentiality of Alcohol and Drug Abuse Patient Records regulations: The Federal rules restrict any use of the information to criminally investigate or prosecute any alcohol or drug abuse patient.[facility] HospitalIn the event this information is protected by the Federal Confidentiality of Alcohol and Drug Abuse Patient Records regulations: The Federal rules restrict any use of the information to criminally investigate or prosecute any alcohol or drug abuse patient.[facility] HospitalIn the event this information is protected by the Federal Confidentiality of Alcohol and Drug Abuse Patient Records regulations: The Federal rules restrict any use of the information to criminally investigate or prosecute any alcohol or drug abuse patient.[facility] HospitalIn the event this information is protected by the Federal Confidentiality of Alcohol and Drug Abuse Patient Records regulations: The Federal rules restrict any use of the information to criminally investigate or prosecute any alcohol or drug abuse patient.[facility] HospitalIn the event this information is protected by the Federal Confidentiality of Alcohol and Drug Abuse Patient Records regulations: The Federal rules restrict any use of the information to criminally investigate or prosecute any alcohol or drug abuse patient.[facility] HospitalIn the event this information is protected by the Federal Confidentiality of Alcohol and Drug Abuse Patient Records regulations: The Federal rules restrict any use of the information to criminally investigate or prosecute any alcohol or drug abuse patient.[facility] HospitalIn the event this information is protected by the Federal Confidentiality of Alcohol and Drug Abuse Patient Records regulations: The Federal rules restrict any use of the information to criminally investigate or prosecute any alcohol or drug abuse patient.[facility] HospitalIn the event this information is protected by the Federal Confidentiality of Alcohol and Drug Abuse Patient Records regulations: The Federal rules restrict any use of the information to criminally investigate or prosecute any alcohol or drug abuse patient.[facility] HospitalIn the event this information is protected by the Federal Confidentiality of Alcohol and Drug Abuse Patient Records regulations: The Federal rules restrict any use of the information to criminally investigate or prosecute any alcohol or drug abuse patient.[facility] HospitalIn the event this information is protected by the Federal Confidentiality of Alcohol and Drug Abuse Patient Records regulations: The Federal rules restrict any use of the information to criminally investigate or prosecute any alcohol or drug abuse patient.[facility] HospitalIn the event this information is protected by the Federal Confidentiality of Alcohol and Drug Abuse Patient Records regulations: The Federal rules restrict any use of the information to criminally investigate or prosecute any alcohol or drug abuse patient.[facility] HospitalIn the event this information is protected by the Federal Confidentiality of Alcohol and Drug Abuse Patient Records regulations: The Federal rules restrict any use of the information to criminally investigate or prosecute any alcohol or drug abuse patient.[facility] HospitalIn the event this information is protected by the Federal Confidentiality of Alcohol and Drug Abuse Patient Records regulations: The Federal rules restrict any use of the information to criminally investigate or prosecute any alcohol or drug abuse patient.[facility] HospitalIn the event this information is protected by the Federal Confidentiality of Alcohol and Drug Abuse Patient Records regulations: The Federal rules restrict any use of the information to criminally investigate or prosecute any alcohol or drug abuse patient.[facility] HospitalIn the event this information is protected by the Federal Confidentiality of Alcohol and Drug Abuse Patient Records regulations: The Federal rules restrict any use of the information to criminally investigate or prosecute any alcohol or drug abuse patient.[facility] HospitalIn the event this information is protected by the Federal Confidentiality of Alcohol and Drug Abuse Patient Records regulations: The Federal rules restrict any use of the information to criminally investigate or prosecute any alcohol or drug abuse patient.[facility] HospitalIn the event this information is protected by the Federal Confidentiality of Alcohol and Drug Abuse Patient Records regulations: The Federal rules restrict any use of the information to criminally investigate or prosecute any alcohol or drug abuse patient.[facility] HospitalIn the event this information is protected by the Federal Confidentiality of Alcohol and Drug Abuse Patient Records regulations: The Federal rules restrict any use of the information to criminally investigate or prosecute any alcohol or drug abuse patient.[facility] HospitalIn the event this information is protected by the Federal Confidentiality of Alcohol and Drug Abuse Patient Records regulations: The Federal rules restrict any use of the information to criminally investigate or prosecute any alcohol or drug abuse patient.[facility] HospitalIn the event this information is protected by the Federal Confidentiality of Alcohol and Drug Abuse Patient Records regulations: The Federal rules restrict any use of the information to criminally investigate or prosecute any alcohol or drug abuse patient.[facility] HospitalIn the event this information is protected by the Federal Confidentiality of Alcohol and Drug Abuse Patient Records regulations: The Federal rules restrict any use of the information to criminally investigate or prosecute any alcohol or drug abuse patient.[facility] HospitalIn the event this information is protected by the Federal Confidentiality of Alcohol and Drug Abuse Patient Records regulations: The Federal rules restrict any use of the information to criminally investigate or prosecute any alcohol or drug abuse patient.[facility] HospitalIn the event this information is protected by the Federal Confidentiality of Alcohol and Drug Abuse Patient Records regulations: The Federal rules restrict any use of the information to criminally investigate or prosecute any alcohol or drug abuse patient.[facility] HospitalIn the event this information is protected by the Federal Confidentiality of Alcohol and Drug Abuse Patient Records regulations: The Federal rules restrict any use of the information to criminally investigate or prosecute any alcohol or drug abuse patient.[facility] HospitalIn the event this information is protected by the Federal Confidentiality of Alcohol and Drug Abuse Patient Records regulations: The Federal rules restrict any use of the information to criminally investigate or prosecute any alcohol or drug abuse patient.[facility] HospitalIn the event this information is protected by the Federal Confidentiality of Alcohol and Drug Abuse Patient Records regulations: The Federal rules restrict any use of the information to criminally investigate or prosecute any alcohol or drug abuse patient.[facility] HospitalIn the event this information is protected by the Federal Confidentiality of Alcohol and Drug Abuse Patient Records regulations: The Federal rules restrict any use of the information to criminally investigate or prosecute any alcohol or drug abuse patient.[facility] Reason for Visit (unrecogniz ed section and content) Reason Comments Physical Therapy Specialty Diagnoses / Procedures Referred By Contac t Referred To Contact [facility] Diagnoses Gait difficulty Complaints of leg weakness Procedures PT REHAB FOLLOW UP ORDER THERAPEUTIC EXERCISES RE, EA 15 MIN. Bradford Love APRN.[facility] [address] [place] [address] [facility] [place] [id number] Referral ID Status Reason Start Date Expiration Date Visits Requested Visits Authorized [id number] Authorized PCP Requested Referral Auto-Generate d Referral 10/01/2023 01/26/2024 8 8 Reason Comments PT Progress Note Reason Comments Patient Left Without Being Seen Reason Comments PT Discharge Specialty Diagnoses / Procedures [facility] Diagnoses Insufficiency of right posterior tibial tendon Procedures PT REHAB FOLLOW UP ORDER THERAPEUTIC EXERCISES RE, EA 15 MIN. 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 Reason Comments Right Knee Pain Knee Replacement Specialty Diagnoses / Procedures Referred By Contac t Referred To Contact XR IMAGING Diagnoses Right knee pain, unspecified chronicity Procedures XR KNEE POST OP 3V AP/LAT/MERCHANT RIGHT RADIOLOGIC EXAMINATION KNEE 3 VIEWS Rigoberto Chase APRN.[facility] [address] [address] Xr Imaging Referral ID Status Reason Start Date Expiration Date V isits Requested Visits Authorized [id number] Closed Auto-Generate d Referral 07/18/2021 08/16/2022 1 [...] Procedures INJECTION, ZOLEDRONIC ACID, 1 MG Raphael Perdomo APRN.PHYSICIAN ANESTHESIOLOGIST [address] [place] [address] [facility] [address] [place] [address] Referral ID Status Reason Start Date Expiration Date V isits Requested Visits Authorized [id number] Authorized 11/17/2020 05/17/2022 3 3 Reason Comments PT Eval Patient Education Specialty Diagnoses / Procedures Referred By Carolac t Referred To Contact Physical Therapy / PHYSICAL THERAPY Diagnoses Posterior tibial tendinitis, right leg INSUFFICIENCY OF RIGHT POSTERIOR TIBIAL TENDON (m76.821) Procedures PHYSICAL THERAPY EVALUATION HIGH COMPLEX 45 MINS NEW RS PT Salome Jack MD [address] [place] [address] Julianne Saab, PT [address] [place] [address] Referral ID Status Reason Start Date Expiration Date Visits Re quested Visits Authorized [id number] Closed 10/22/2021 04/27/2022 1 1 Specialty Diagnoses / Procedures [facility] To Contact Physical Therapy / PHYSICAL THERAPY Diagnoses Posterior tibial tendinitis, right leg INSUFFICIENCY OF RIGHT POSTERIOR TIBIAL TENDON (m76.821) Procedures PHYSICAL THERAPY EVALUATION HIGH COMPLEX 45 MINS NEW RS PT Salome Jack MD [address] [place] [address] Julianne Saab, PT [address] [place] [address] Reason Comments Established Patient Reason Comments Yearly [...] BREAST INC CAD Sheela Celeste PA-C [address] [place] [address] [facility] [address] [place] [address] Referral ID Status Reason Start Date Expiration Date V isits Requested Visits Authorized [id number] Closed Auto-Generate d Referral 11/29/2021 12/29/2022 1 1 Reason Comments Medical Clearance Received fax request for surgical clearance from [facility] - scanned into [employer] Reason Comments Patient Question Reason Comments F/U 6 months Reason Comments Patient Question Patient called and h ad question about inplants after radiation. Reason Comments Group Tester - Other Sending records to [facility] Reason Onset Date Comments Refill Request 12/04/2021 Reason Comments Pre-Op Exam Reason Comments Appointment Specialty Diagnoses / Procedures Referred By George mckeon Referred To Contact Diagnoses Osteoporosis, unspecified Malignant neoplasm of unspecified site of left female breast Procedures INJECTION, ZOLEDRONIC ACID, 1 MG Raphael Perdomo APRN.PHYSICIAN ANESTHESIOLOGIST [address] [place] [address] [facility] [address] [place] [address] Referral ID Status Reason Start Date Expiration Date V isits Requested Visits Authorized [id number] Authorized 11/17/2020 05/17/2022 4 4 Reason Onset [...] concerns Specialty Diagnoses / Procedures Referred By George mckeon Referred To Contact MR IMAGING Diagnoses Nonruptured cerebral aneurysm Procedures MRA BRAIN WO/W IVCON MRA; HEAD W & WO CONTRAST Gamaliel Reardon, RECRUITING ASSISTANT.PHYSICIAN ANESTHESIOLOGIST [address] [place] [address] [place] [address] Referral ID Status Reason Start Date Expiration Date V isits Requested Visits Authorized [id number] Closed Auto-Generate d Referral 02/18/2022 03/20/2022 1 1 Reason Comments 3 mo follow up Reason Comments results Reason Comments F/U 3 Month Referral ID Status Reason Start Date Expiration Date V isits Requested Visits Authorized [id number] Authorized 11/17/2020 08/24/2024 10 10 Reason Comments Refill Request Reason Comments Radiology CT Specialty Diagnoses / Procedures Referred By Contac t Referred To Contact CT IMAGING Diagnoses History of abdominal surgery Abdominal pain, chronic, generalized Procedures CT ABD/PEL WO IVCON CT ABD & PELVIS W/O CONTRAST Bradford Love, RECRUITING ASSISTANT.EXPLORATION DRILLER [address] [place] [address] Ct Imaging [id number] Referral ID Status Reason Start Date Expiration Date V isits Requested Visits Authorized [id number] Closed Auto-Generate d Referral 09/23/2023 10/23/2023 2 1 Reason Comments PT Eval Specialty Diagnoses / Procedures Referred By Contac t Referred To Contact [facility] Diagnoses Gait difficulty Complaints of leg weakness Procedures CONSULT TO PHYSICAL THERAPY PHYSICAL THERAPY EVALUATION HIGH COMPLEX 45 MINS Bradford Love, RECRUITING ASSISTANT.EXPLORATION DRILLER [address] [place] [address] [facility] [place] [address] [place] [address] Referral ID Status Reason Start Date Expiration Date V isits Requested Visits Authorized [id number] Closed Auto-Generate d Referral 04/28/2023 04/27/2024 1 1 Reason Comments F/U 3 Month Reason Comments Fall Has swelling in Left ankle, foot, bruising down leg, d/t hx pt has no feeling knee down Reason Comments Concerned for pt-see note Vomiting Shortness of Breath Referral ID Status Reason Start Date Expiration Date V isits Requested Visits Authorized [id number] Closed PCP Requested Referral Auto-Generated Referral 10/01/2023 01/26/2024 8 8 Reason Comments Results Reason Comments Medication Question Reason Comments PT Progress Note Specialty Diagnoses / Procedures Referred By Contac t Referred To Contact [facility] Diagnoses Gait difficulty Complaints of leg weakness Procedures PT REHAB FOLLOW UP ORDER THERAPEUTIC EXERCISES RE, EA 15 MIN. Bradford Love, RECRUITING ASSISTANT.[facility] [address] [place] [address] [facility] [address] [address] Specialty Diagnoses / Procedures Referred By Contac t Referred To Contact [facility] Diagnoses Complaints of leg weakness Gait difficulty Procedures PT REHAB FOLLOW UP ORDER THERAPEUTIC EXERCISES RE, EA 15 MIN. Bradford Love, RECRUITING ASSISTANT.EXPLORATION DRILLER [address] [place] [address] [address] Referral ID Status Reason Start Date Expiration Date Visits Requested Visits Authorized [id number] Authorized PCP Requested Referral Auto-Generate d Referral 11/27/2023 02/27/2024 8 8 Specialty Diagnoses / Procedures [facility] Diagnoses Complaints of leg weakness Gait difficulty Procedures PT REHAB FOLLOW UP ORDER THERAPEUTIC EXERCISES RE, EA 15 MIN. Bradford Love, RECRUITING ASSISTANT.EXPLORATION DRILLER [address] [place] [address] [address] Reason Comments Medicare Wellness Exam Reason Comments requesting med alert rx Reason Comments Orders Reason Comments Radiology Mammogram Specialty Diagnoses / Procedures Referred By Contac t Referred To Contact [facility] Diagnoses Bilateral fibrocystic breast changes Personal history of breast cancer S/P bilateral breast lumpectomy Mass of lower outer quadrant of right breast Procedures WILLIE DIAGNOSTIC BILATERAL DIAGNOSTIC MAMMOGRAPHY COMPUTER-AIDED DETCJ Sheela Tony PA-C [address] [place] [address] Br Imaging [address] [place] [phone] Referral ID Status Reason Start Date Expiration Date V isits Requested Visits Authorized [id number] Closed Auto-Generate d Referral 12/24/2022 01/23/2024 1 [...] aneurysm (HCC) Procedures CONSULT TO NEUROLOGY OFFICE/OUTPATIENT [facility] 60 MINUTES Melani Zuniga, RECRUITING ASSISTANT.PHYSICIAN ANESTHESIOLOGIST [address] [place] [address] Phone: tel: fax: Referral ID Status Reason Start Date Expiration Date V isits Requested Visits Authorized [id number] Closed PCP Requested Referral 07/22/2024 07/21/2025 1 1 Reason Onset Date Comments Refill Request 08/17/2024 Reason Onset Date Comments Transition Of Care 09/01/2024 Reason Comments Hospital Follow Up Reason Onset Date Comments Population Health Navigation Outreach 09/22/2024 Healthy at Home - [facility] Reason Onset Date Comments Transition Of Care 10/13/2024 TCM Initial O utreachDischarged 10/12/24 [place] Reason Onset Date Comments Transition Of Care 10/13/2024 Inbound call Reason Onset Date Comments Transition Of Care 10/13/2024 TCM Outreach Reason Comments Ambulatory Social Work Food resources Reason Comments Home Health Orders Reason Comments Ambulatory Social Work Food insecurity Reason Comments Ambulatory Social Work Care concerns Care Teams (unrecognized sec tion and content) Pattern Cleaner Relationship Specialty Start Date End Date Ruddy Cooper MD [address], [place] [id number] PCP - General 02/16/02 Sid Storm MD, [address] [place], [place] [id number] Physician Radiation Oncology 02/21/20 Vlad Velasquez MD [address] [place] [address] Home Care Physician Orthopedics 08/08/20 Rigoberto Chase, SHAHID.PHYSICIAN ANESTHESIOLOGIST [address] [place] [address] Referring Orthopedics 08/08/20 Jaimee Bernard, PT [address] [place] [address] Title I Coordinator Post Acute Care 08/08/20 Pattern Cleaner Relationship Specialty Start Date End Date Ruddy Cooper MD [address] [place] [address] PCP - General 02/16/02 Sid Storm MD, [address] [place] [address] Physician Radiation Oncology 02/21/20 Vlad Velasquez MD [address] [place] [address] Home Care Physician Orthopedics 08/08/20 Rigoberto Chase, RECRUITING ASSISTANT.PHYSICIAN ANESTHESIOLOGIST [address] [place] [address] Referring Orthopedics 08/08/20 Jaimee Bernard, PT [address] [place] [address] Title I Coordinator Post Acute Care 08/08/20 Pattern Cleaner Relationship Specialty Start Date End Date Ruddy Cooper MD [address] [place] [address] PCP - General 02/16/02 Sid Storm MD, [address] [place] [address] Physician Radiation Oncology 02/21/20 Vlad Velasquez MD [address] [place] [address] Home Care Physician Orthopedics 08/08/20 Rigoberto Chase APRN.PHYSICIAN ANESTHESIOLOGIST [address] [place] [address] Referring Orthopedics 08/08/20 Jaimee Bernard, PT [address] [place] [address] Title I Coordinator Post Acute Care 08/08/20 Pattern Cleaner Relationship Specialty Start Date End Date Ruddy Cooper MD [address] [place] [address] PCP - General 02/16/02 Sid Storm MD, [address] [place] [address] Physician Radiation Oncology 02/21/20 Vlad Velasquez MD [address] [place] [address] Home Care Physician Orthopedics 08/08/20 Rigoberto Chase, RECRUITING ASSISTANT.[address] [address] Referring Orthopedics 08/08/20 Jaimee Bernard, PT [address] [place] [address] Title I Coordinator Post Acute Care 08/08/20 Pattern Cleaner Relationship Specialty Start Date End Date Ruddy Cooper MD [address] [place] [address] PCP - General 02/16/02 Sid Storm MD, [address] [place] [address] Physician Radiation Oncology 02/21/20 Vlad Velasquez MD [address] [place] [address] Home Care Physician Orthopedics 08/08/20 Rigoberto Chase, RECRUITING ASSISTANT.[address] [address] Referring Orthopedics 08/08/20 Jaimee Bernard, PT [address] [place] [address] Title I Coordinator Post Acute Care 08/08/20 Pattern Cleaner Relationship Specialty Start Date End Date Ruddy Cooper MD [address] [place] [address] PCP - General 02/16/02 Sid Storm MD, [address] [place] [address] Physician Radiation Oncology 02/21/20 Vlad Velasquez MD [address] [place] [address] Home Care Physician Orthopedics 08/08/20 Rigoberto Chase, SHAHID.[address] [address] Referring Orthopedics 08/08/20 Jaimee Bernard, PT [address] [place] [address] Title I Coordinator Post Acute Care 08/08/20 Pattern Cleaner Relationship Specialty Start Date End Date Ruddy Cooper MD [address] [place] [address] PCP - General 02/16/02 Sid Storm MD, [address] [place] [address] Physician Radiation Oncology 02/21/20 Vlad Velasquez MD [address] [place] [address] Home Care Physician Orthopedics 08/08/20 Rigoberto Chase APRN.[address] [address] Referring Orthopedics 08/08/20 Jaimee Bernard, PT [address] [place] [address] Title I Coordinator Post Acute Care 08/08/20 Pattern Cleaner Relationship Specialty Start Date End Date Ruddy Cooper MD [address] [place] [address] PCP - General 02/16/02 Sid Storm MD, [address] [place] [address] Physician Radiation Oncology 02/21/20 Vlad Velasquez MD [address] [facility] [place] [address] Home Care Physician Orthopedics 08/08/20 Rigoberto Chase, RECRUITING ASSISTANT.PHYSICIAN ANESTHESIOLOGIST [address] [place] [address] Referring Orthopedics 08/08/20 Jaimee Bernard, PT [address] [place] [address] Title I Coordinator Post Acute Care 08/08/20 Pattern Cleaner Relationship Specialty Start Date End Date Ruddy Cooper MD [address] [place] [address] PCP - General 02/16/02 Sid Storm MD, [address] [place] [address] Physician Radiation Oncology 02/21/20 Vlad Velasquez MD [address] [place] [address] Home Care Physician Orthopedics 08/08/20 Rigoberto Chase, RECRUITING ASSISTANT.PHYSICIAN ANESTHESIOLOGIST [address] [place] [address] Referring Orthopedics 08/08/20 Jaimee Bernard, PT [address] [place] [address] Title I Coordinator Post Acute Care 08/08/20 Pattern Cleaner Relationship Specialty Start Date End Date Ruddy Cooper MD [address] [place] [address] PCP - General 02/16/02 Sid Storm MD, [address] [place] [address] Physician Radiation Oncology 02/21/20 Vlad Velasquez MD [address] [place] [address] Home Care Physician Orthopedics 08/08/20 Rigoberto Chase, RECRUITING ASSISTANT.PHYSICIAN ANESTHESIOLOGIST [address] [place] [address] Referring Orthopedics 08/08/20 Jaimee Bernard, PT [address] [place] [address] Title I Coordinator Post Acute Care 08/08/20 Pattern Cleaner Relationship Specialty Start Date End Date Ruddy Cooper MD [address] [place] [address] PCP - General 02/16/02 Sid Storm MD, [address] [place] [address] Physician Radiation Oncology 02/21/20 Vlad Velasquez MD [address] [place] [address] Home Care Physician Orthopedics 08/08/20 Rigoberto Chase, RECRUITING ASSISTANT.PHYSICIAN ANESTHESIOLOGIST [address] [place] [address] Referring Orthopedics 08/08/20 Jaimee Bernard, PT [address] [place] [address] Title I Coordinator Post Acute Care 08/08/20 Pattern Cleaner Relationship Specialty Start Date End Date Ruddy Cooper MD [address] [place] [address] PCP - General 02/16/02 Sid Storm MD, [address] [facility] [place] [address] Physician Radiation Oncology 02/21/20 Vlad Velasquez MD [address] [place] [address] Home Care Physician Orthopedics 08/08/20 Rigoberto Chase, RECRUITING ASSISTANT.[address] [address] Referring Orthopedics 08/08/20 Jaimee Bernard, PT [address] [place] [address] Title I Coordinator Post Acute Care 08/08/20 Pattern Cleaner Relationship Specialty Start Date End Date Ruddy Cooper MD [address] [place] [address] PCP - General 02/16/02 Sid Storm MD, [address] [place] [address] Physician Radiation Oncology 02/21/20 Vlad Velasquez MD [address] [place] [address] Home Care Physician Orthopedics 08/08/20 Rigoberto Chase, RECRUITING ASSISTANT.[address] [address] Referring Orthopedics 08/08/20 Jaimee Bernard, PT [address] [place] [address] Title I Coordinator Post Acute Care 08/08/20 Pattern Cleaner Relationship Specialty Start Date End Date Ruddy Cooper MD [address] [place] [address] PCP - General 02/16/02 Sid Storm MD, [address] [place] [address] Physician Radiation Oncology 02/21/20 Vlad Velasquez MD [address] [facility] [place] [address] Home Care Physician Orthopedics 08/08/20 Rigoberto Chase, SHAHID.[address] [address] Referring Orthopedics 08/08/20 Jaimee Bernard, PT [address] [place] [address] Title I Coordinator Post Acute Care 08/08/20 Pattern Cleaner Relationship Specialty Start Date End Date Ruddy Cooper MD [address] [place] [address] PCP - General 02/16/02 Sid tSorm MD, [address] [place] [address] Physician Radiation Oncology 02/21/20 Vlad Velasquez MD [address] [place] [address] Home Care Physician Orthopedics 08/08/20 Rigoberto Chase, SHAHID.[address] [address] Referring Orthopedics 08/08/20 Jaimee Bernard, PT [address] [place] [address] Title I Coordinator Post Acute Care 08/08/20 Pattern Cleaner Relationship Specialty Start Date End Date Ruddy Cooper MD [address] [place] [address] PCP - General 02/16/02 Sid Storm MD, [address] [place] [address] Physician Radiation Oncology 02/21/20 Vlad Velasquez MD [address] [place] [address] Home Care Physician Orthopedics 08/08/20 Rigoberto Chase, SHAHID.PHYSICIAN ANESTHESIOLOGIST [address] [place] [address] Referring Orthopedics 08/08/20 Jaimee Bernard, PT [address] [place] [address] Title I Coordinator Post Acute Care 08/08/20 Pattern Cleaner Relationship Specialty Start Date End Date Ruddy Cooper MD [address] [place] [address] PCP - General 02/16/02 Sid Storm MD, [address] [place] [address] Physician Radiation Oncology 02/21/20 Vlad Velasquez MD [address] [facility] [place] [address] Home Care Physician Orthopedics 08/08/20 Rigoberto Chase, RECRUITING ASSISTANT.PHYSICIAN ANESTHESIOLOGIST [address] [place] [address] Referring Orthopedics 08/08/20 Jaimee Bernard, PT [address] [place] [address] Title I Coordinator Post Acute Care 08/08/20 Pattern Cleaner Relationship Specialty Start Date End Date Ruddy Copoer MD [address] [place] [address] PCP - General 02/16/02 Sid Storm MD, [address] [place] [address] Physician Radiation Oncology 02/21/20 Vlad Velasquez MD [address] [facility] [place] [address] Home Care Provider Orthopedics 08/08/20 Rigoberto Chase APRN.PHYSICIAN ANESTHESIOLOGIST [address] [place] [address] Referring Orthopedics 08/08/20 Jaimee Bernard, PT [address] [place] [address] Title I Coordinator Post Acute Care 08/08/20 Pattern Cleaner Relationship Specialty Start Date End Date Ruddy Cooper MD [address] [place] [address] PCP - General 02/16/02 Sid Storm MD, [address], [place] [address] [phone] Physician Radiation Oncology 02/21/20 Vlad Velasquez MD [address] [place] [address] Home Care Provider Orthopedics 08/08/20 Rigoberto Chase, SHAHID.[address] [address] Referring Orthopedics 08/08/20 Jaimee Bernard, PT [address] [place] [address] Title I Coordinator Post Acute Care 08/08/20 Pattern Cleaner Relationship Specialty Start Date End Date Ruddy Cooper MD [address] [place] [address] PCP - General 02/16/02 Sid Storm MD, [address] [place] [address] Physician Radiation Oncology 02/21/20 Vlad Velasquez MD [address] [place] [address] Home Care Provider Orthopedics 08/08/20 Rigoberto Chase APRN.[address] [address] Referring Orthopedics 08/08/20 Jaimee Bernard, PT [address] [place] [address] Title I Coordinator Post Acute Care 08/08/20 Pattern Cleaner Relationship Specialty Start Date End Date Ruddy Cooper MD [address] [place] [address] PCP - General 02/16/02 Sid Storm MD, [address] [place] [address] Physician Radiation Oncology 02/21/20 Vlad Velasquez MD [address] [place] [address] Home Care Provider Orthopedics 08/08/20 Rigoberto Chase APRN.PHYSICIAN ANESTHESIOLOGIST [address] [place] [address] Referring Orthopedics 08/08/20 Jaimee Bernard, PT [address] [place] [address] Title I Coordinator Post Acute Care 08/08/20 Pattern Cleaner Relationship Specialty Start Date End Date Ruddy Cooper MD [address] [place] [address] PCP - General 02/16/02 Sid Storm MD, [address] [place] [address] Physician Radiation Oncology 02/21/20 Vlad Velasquez MD [address] [place] [address] Home Care Provider Orthopedics 08/08/20 Rigoberto Chase APRN.PHYSICIAN ANESTHESIOLOGIST [address] [place] [address] Referring Orthopedics 08/08/20 Jaimee Bernard, PT [address] [place] [address] Title I Coordinator Post Acute Care 08/08/20 Pattern Cleaner Relationship Specialty Start Date End Date Ruddy Cooper MD [address] [place] [address] PCP - General 02/16/02 Sid Storm MD, [address] [place] [address] Physician Radiation Oncology 02/21/20 Vlad Velasquez MD [address] [place] [address] Home Care Provider Orthopedics 08/08/20 Rigoberto Chase, RECRUITING ASSISTANT.[address] [address] Referring Orthopedics 08/08/20 Jaimee Bernard, PT [address] [place] [address] Title I Coordinator Post Acute Care 08/08/20 Pattern Cleaner Relationship Specialty Start Date End Date Ruddy Cooper MD [address] [place] [address] PCP - General 02/16/02 Sid Storm MD, [address] [place] [address] Physician Radiation Oncology 02/21/20 Vlad Velasquez MD [address] [place] [address] Home Care Provider Orthopedics 08/08/20 Rigoberto Chase, RECRUITING ASSISTANT.PHYSICIAN ANESTHESIOLOGIST [address] [place] [address] Referring Orthopedics 08/08/20 Jaimee Bernard, PT [address] [place] [address] Title I Coordinator Post Acute Care 08/08/20 Pattern Cleaner Relationship Specialty Start Date End Date Ruddy Cooper MD [address] [place] [address] PCP - General 02/16/02 Sid Storm MD, [address] [place] [address] Physician Radiation Oncology 02/21/20 Vlad Velasquez MD [address] [facility] [place] [address] Home Care Provider Orthopedics 08/08/20 Rigoberto Chase, RECRUITING ASSISTANT.PHYSICIAN ANESTHESIOLOGIST [address] [place] [address] Referring Orthopedics 08/08/20 Jaimee Bernard, PT [address] [place] [address] Title I Coordinator Post Acute Care 08/08/20 Pattern Cleaner Relationship Specialty Start Date End Date Ruddy Cooper MD [address] [place] [address] PCP - General 02/16/02 Sid Storm MD, [address] [place] [address] Physician Radiation Oncology 02/21/20 Vlad Velasquez MD [address] [place] [address] Home Care Provider Orthopedics 08/08/20 Rigoberto Chase, RECRUITING ASSISTANT.[address] [address] Referring Orthopedics 08/08/20 Jaimee Bernard, PT [address] [place] [address] Title I Coordinator Post Acute Care 08/08/20 Pattern Cleaner Relationship Specialty Start Date End Date Ruddy Cooper MD [address] [place] [address] PCP - General 02/16/02 Sid Storm MD, [address] [place] [facility] [place] [address] Physician Radiation Oncology 02/21/20 Vlad Velasquez MD [address] [place] [address] Home Care Provider Orthopedics 08/08/20 Rigoberto Chase, RECRUITING ASSISTANT.[address] [address] Referring Orthopedics 08/08/20 Jaimee Bernard, PT [address] [place] [address] Title I Coordinator Post Acute Care 08/08/20 Pattern Cleaner Relationship Specialty Start Date End Date Ruddy Cooper MD [address] [facility] [place] [address] PCP - General 02/16/02 Sid Storm MD, [address] [place] [facility] [place] [address] Physician Radiation Oncology 02/21/20 Vlad Velasquez MD [address] [place] [address] Home Care Provider Orthopedics 08/08/20 Rigoberto Chase, RECRUITING ASSISTANT.[address] [address] Referring Orthopedics 08/08/20 Jaimee Bernard, PT [address] [place] [address] Title I Coordinator Post Acute Care 08/08/20 Pattern Cleaner Relationship Specialty Start Date End Date Ruddy Cooper MD [address] [facility] [place] [address] PCP - General 02/16/02 Sid Storm MD, [address] [facility] [address] Physician Radiation Oncology 02/21/20 Vlad Velasquez MD [address] [facility] [place] [address] Home Care Provider Orthopedics 08/08/20 Rigoberto Chase APRN.[address] [address] Referring Orthopedics 08/08/20 Jaimee Bernard, PT [address] [place] [address] Title I Coordinator Post Acute Care 08/08/20 Pattern Cleaner Relationship Specialty Start Date End Date Ruddy Cooper MD [address] [place] [address] PCP - General 02/16/02 Sid Storm MD, [address] [place] [address] Physician Radiation Oncology 02/21/20 Vlad Velasquez MD [address] [facility] [place] [address] Home Care Provider Orthopedics 08/08/20 Rigoberto Chase APRN.[address] [address] Referring Orthopedics 08/08/20 Jaimee Bernard, PT [address] [place] [address] Title I Coordinator Post Acute Care 08/08/20 Pattern Cleaner Relationship Specialty Start Date End Date Ruddy Cooper MD [address] [place] [address] PCP - General 02/16/02 Sid Storm MD, [address] [facility] [place] [address] Physician Radiation Oncology 02/21/20 Vlad Velasquez MD [address] [place] [address] Home Care Provider Orthopedics 08/08/20 Rigoberto Chase APRN.PHYSICIAN ANESTHESIOLOGIST [address] [place] [address] Referring Orthopedics 08/08/20 Jaimee Bernard, PT [address] [place] [address] Title I Coordinator Post Acute Care 08/08/20 Pattern Cleaner Relationship Specialty Start Date End Date Ruddy Cooper MD [address] [place] [address] PCP - General 02/16/02 Sid Storm MD, [address] [place] [address] Physician Radiation Oncology 02/21/20 Vlad Velasquez MD [address] [place] [address] Home Care Provider Orthopedics 08/08/20 Rigoberto Chase APRN.PHYSICIAN ANESTHESIOLOGIST [address] [place] [address] Referring Orthopedics 08/08/20 Pattern Cleaner Relationship Specialty Start Date End Date Ruddy Cooper MD [address] [place] [address] PCP - General 02/16/02 Sid Storm MD, [address] [place] [address] Physician Radiation Oncology 02/21/20 Vlad Velasquez MD [address] [place] [address] Home Care Provider Orthopedics 08/08/20 Rigoberto Chase APRN.PHYSICIAN ANESTHESIOLOGIST [address] [place] [address] Referring Orthopedics 08/08/20 Pattern Cleaner Relationship Specialty Start Date End Date Ruddy Cooper MD [address] [place] [address] PCP - General 02/16/02 Sid Storm MD, [address] [place] [address] Physician Radiation Oncology 02/21/20 Vlad Velasquez MD [address] [place] [address] Home Care Provider Orthopedics 08/08/20 Rigoberto Chase RECRUITING ASSISTANT.PHYSICIAN ANESTHESIOLOGIST [address] [place] [address] Referring Orthopedics 08/08/20 Pattern Cleaner Relationship Specialty Start Date End Date Ruddy Cooper MD [address] [place] [address] PCP - General 02/16/02 Sid Storm MD, [address] [place] [address] Physician Radiation Oncology 02/21/20 Vlad Velasquez MD [address] [place] [address] Home Care Provider Orthopedics 08/08/20 Rigoberto Chase APRN.PHYSICIAN ANESTHESIOLOGIST [address] [place] [address] Referring Orthopedics 08/08/20 Pattern Cleaner Relationship Specialty Start Date End Date Ruddy Cooper MD [address] [place] [address] PCP - General 02/16/02 Sid Storm MD, [address] [place] [address] Physician Radiation Oncology 02/21/20 Vlad Velasquez MD [address] [facility] [place] [address] Home Care Provider Orthopedics 08/08/20 Rigoberto Chase APRN.PHYSICIAN ANESTHESIOLOGIST [address] [place] [address] Referring Orthopedics 08/08/20 Pattern Cleaner Relationship Specialty Start Date End Date Ruddy Cooper MD [address] [place] [address] PCP - General 02/16/02 Sid Storm MD, MD [address] [place] [address] Physician Radiation Oncology 02/21/20 Vlad Velasquez MD [address] [place] [address] Home Care Provider Orthopedics 08/08/20 Rigoberto Chase APRN.PHYSICIAN ANESTHESIOLOGIST [address] [place] [address] Referring Orthopedics 08/08/20 Pattern Cleaner Relationship Specialty Start Date End Date Ruddy Cooper MD [address] [place] [address] PCP - General 02/16/02 Sid Storm MD, [address] [place] [address] Physician Radiation Oncology 02/21/20 Vlad Velasquez MD [address] [place] [address] Home Care Provider Orthopedics 08/08/20 Rigoberto Chase APRN.PHYSICIAN ANESTHESIOLOGIST [address] [place] [address] Referring Orthopedics 08/08/20 Jaimee Bernard, PT [address] [place] [address] Title I Coordinator Post Acute Care 08/08/20 11/25/22 Pattern Cleaner Relationship Specialty Start Date End Date Ruddy Cooper MD [address] [place], [place] [address] PCP - General 02/16/02 Sid Storm MD, [address] [place] [address] Physician Radiation Oncology 02/21/20 Vlad Velasquez MD [address] [facility] [place] [address] Home Care Provider Orthopedics 08/08/20 Rigoberto Chase APRN.PHYSICIAN ANESTHESIOLOGIST [address] [place] [address]65 Referring Orthopedics 08/08/20 Jaimee Bernard, PT [address] [place], [place] 8[address]68 Title I Coordinator Post Acute Care 08/08/20 11/25/22 Pattern Cleaner Relationship Specialty Start Date End Date Ruddy Cooper MD [address] [place] [address] PCP - General 02/16/02 Sid Storm MD, [address] [place] [address] Physician Radiation Oncology 02/21/20 Vlad Velasquez MD [address] [place] [address] Home Care Provider Orthopedics 08/08/20 Rigoberto Chase APRN.PHYSICIAN ANESTHESIOLOGIST [address] [place] [address] Referring Orthopedics 08/08/20 Pattern Cleaner Relationship Specialty Start Date End Date Ruddy Cooper MD [address] [place] [address] PCP - General 02/16/02 Sid Storm MD, [address] [place] [address] Physician Radiation Oncology 02/21/20 Vlad Velasquez MD [address] [place] [address] Home Care Provider Orthopedics 08/08/20 Rigoberto Chase APRN.PHYSICIAN ANESTHESIOLOGIST [address] [place] [address] Referring Orthopedics 08/08/20 Pattern Cleaner Relationship Specialty Start Date End Date Ruddy Cooper MD [address] [place] [address] PCP - General 02/16/02 Sid Storm MD, [address] [place] [address] Physician Radiation Oncology 02/21/20 Vlad Velasquez MD [address] [place] [address] Home Care Provider Orthopedics 08/08/20 Rigoberto Chsae RECRUITING ASSISTANT.PHYSICIAN ANESTHESIOLOGIST [address] [place] [address] Referring Orthopedics 08/08/20 Pattern Cleaner Relationship Specialty Start Date End Date Ruddy Cooper MD [address] [place] [address] PCP - General 02/16/02 Sid Storm MD [address] [place] [address] Physician Radiation Oncology 02/21/20 Vlad Velasquez MD [address] [place] [address] Home Care Provider Orthopedics 08/08/20 Rigoberto Chase, RECRUITING ASSISTANT.PHYSICIAN ANESTHESIOLOGIST [address] [place] [address] Referring Orthopedics 08/08/20 Pattern Cleaner Relationship Specialty Start Date End Date Ruddy Cooper MD [address] [place] [address] PCP - General 02/16/02 Sid Storm MD [address] [place] [address] Physician Radiation Oncology 02/21/20 Vlad Velasquez MD [address] [place] [address] Home Care Provider Orthopedics 08/08/20 Rigoberto Chase APRN.PHYSICIAN ANESTHESIOLOGIST [address] [place] [address] Referring Orthopedics 08/08/20 Pattern Cleaner Relationship Specialty Start Date End Date Ruddy Cooper MD [address] [place] [address] PCP - General 02/16/02 Sid Storm MD [address] [place] [address] Physician Radiation Oncology 02/21/20 Vlad Velasquez MD [address] [place] [address] Home Care Provider Orthopedics 08/08/20 Rigoberto Chase APRN.PHYSICIAN ANESTHESIOLOGIST [address] [place] [address] Referring Orthopedics 08/08/20 Pattern Cleaner Relationship Specialty Start Date End Date Ruddy Cooper MD [address] [place] [address] PCP - General 02/16/02 Sid Storm MD [address] [place] [address] Physician Radiation Oncology 02/21/20 Vlad Velasquez MD [address] [place] [address] Home Care Provider Orthopedics 08/08/20 Rigoberto Chase APRN.PHYSICIAN ANESTHESIOLOGIST [address] [place] [address] 99194 Referring Orthopedics 08/08/20 Pattern Cleaner Relationship Specialty Start Date End Date Ruddy Cooper MD [address] [place] [address] PCP - General 02/16/02 Sid Storm MD [address] [place] [address] Physician Radiation Oncology 02/21/20 Vlad Velasquez MD [address] [place] [address] Home Care Provider Orthopedics 08/08/20 Rigoberto Chase APRN.PHYSICIAN ANESTHESIOLOGIST [address] [place] [address] 40620 Referring Orthopedics 08/08/20 Pattern Cleaner Relationship Specialty Start Date End Date Ruddy Cooper MD [address] [place] [address] PCP - General 02/16/02 Sid Storm MD [address] [place] [address] Physician Radiation Oncology 02/21/20 Vlad Velasquez MD [address] [place] [address] Home Care Provider Orthopedics 08/08/20 Rigoberto Chase APRN.PHYSICIAN ANESTHESIOLOGIST [address] [place] [address] 38459 Referring Orthopedics 08/08/20 Pattern Cleaner Relationship Specialty Start Date End Date Ruddy Cooper MD [address] [place] [address] PCP - General 02/16/02 Sid Storm MD [address] [place] [address] Physician Radiation Oncology 02/21/20 Vlad Velasquez MD [address] [place] [address] Home Care Provider Orthopedics 08/08/20 Rigoberto Chase APRN.PHYSICIAN ANESTHESIOLOGIST [address] [place] [address] 47654 Referring Orthopedics 08/08/20 Pattern Cleaner Relationship Specialty Start Date End Date Ruddy Cooper MD [address] [place] [address] PCP - General 02/16/02 Sid Storm MD [address] [place] [address] Physician Radiation Oncology 02/21/20 Vlad Velasquez MD [address] [place] [address] Home Care Provider Orthopedics 08/08/20 Rigoberto Chase RECRUITING ASSISTANT.PHYSICIAN ANESTHESIOLOGIST [address] [place] [address] 90325 Referring Orthopedics 08/08/20 Pattern Cleaner Relationship Specialty Start Date End Date Ruddy Cooper MD [address] [place], [place] 806841 PCP - General 02/16/02 Sid Storm MD [address] [place] [address] Physician Radiation Oncology 02/21/20 Vlad Velasquez MD [address] [place] [address] Home Care Provider Orthopedics 08/08/20 Rigoberto Chase, RECRUITING ASSISTANT.PHYSICIAN ANESTHESIOLOGIST [address] [place] [address] 25776 Referring Orthopedics 08/08/20 Pattern Cleaner Relationship Specialty Start Date End Date Ruddy Cooper MD [address] [place] [address] PCP - General 02/16/02 Sid Storm MD [address] [place], [place] 883410 [phone] Physician Radiation Oncology 02/21/20 Vlad Velasquez MD [address] [place] [address] Home Care Provider Orthopedics 08/08/20 Rigoberto Chase, RECRUITING ASSISTANT.PHYSICIAN ANESTHESIOLOGIST [address] [place] [address] 01064 Referring Orthopedics 08/08/20 Pattern Cleaner Relationship Specialty Start Date End Date Ruddy Cooper MD [address] [place] [address] PCP - General 02/16/02 Sid Storm MD [address] [facility] [place] [place] [address] Physician Radiation Oncology 02/21/20 Vlad Velasquez MD [address] [place] [address] Home Care Provider Orthopedics 08/08/20 Rigoberto Chase APRN.PHYSICIAN ANESTHESIOLOGIST [address] [place] [address] 06046 Referring Orthopedics 08/08/20 Pattern Cleaner Relationship Specialty Start Date End Date Ruddy Cooper MD [address] [facility] [place] [address] PCP - General 02/16/02 Sid Storm MD [address] [place] [address] Physician Radiation Oncology 02/21/20 Vlad Velasquez MD [address] [place] [address] Home Care Provider Orthopedics 08/08/20 Rigoberto Chase APRN.PHYSICIAN ANESTHESIOLOGIST [address] [place] [address] 95184 Referring Orthopedics 08/08/20 Pattern Cleaner Relationship Specialty Start Date End Date Ruddy Cooper MD [address] [facility] [place] [address] PCP - General 02/16/02 Sid Storm MD [address] [facility] [place] [address] Physician Radiation Oncology 02/21/20 Vlad Velasquez MD [address] [place] [address] Home Care Provider Orthopedics 08/08/20 Rigoberto Chase APRN.PHYSICIAN ANESTHESIOLOGIST [address] [place] [address] 86359 Referring Orthopedics 08/08/20 Pattern Cleaner Relationship Specialty Start Date End Date Ruddy Cooper MD [address] [facility] [place] [address] PCP - General 02/16/02 Sid Storm MD [address] [place] [address] Physician Radiation Oncology 02/21/20 Vlad Velasquez MD [address] [place] [address] Home Care Provider Orthopedics 08/08/20 Rigoberto Chase APRN.PHYSICIAN ANESTHESIOLOGIST [address] [place] [address] 10680 Referring Orthopedics 08/08/20 Pattern Cleaner Relationship Specialty Start Date End Date uRddy Cooper MD [address] [place] [address] PCP - General 02/16/02 Sid Storm MD [address] [place] [address] Physician Radiation Oncology 02/21/20 Vlad Velasquez MD [address] [place] [address] Home Care Provider Orthopedics 08/08/20 Rigoberto Chase APRN.PHYSICIAN ANESTHESIOLOGIST [address] [place] [address] 42034 Referring Orthopedics 08/08/20 Pattern Cleaner Relationship Specialty Start Date End Date Ruddy Cooper MD [address] [facility] [place] [address] PCP - General 02/16/02 Sid Storm MD [address] [place] [address] Physician Radiation Oncology 02/21/20 Vlad Velasquez MD [address] [facility] [address] Home Care Provider Orthopedics 08/08/20 Rigoberto Chase, RECRUITING ASSISTANT.PHYSICIAN ANESTHESIOLOGIST [address] [place] [address] 9[address]76 Referring Orthopedics 08/08/20 Pattern Cleaner Relationship Specialty Start Date End Date Ruddy Cooper MD [address] [place] [address] PCP - General 02/16/02 Sid Storm MD [address] [place] [address] Physician Radiation Oncology 02/21/20 Vlad Velasquez MD [address] [place] [address] Home Care Provider Orthopedics 08/08/20 Rigoberto Chase, RECRUITING ASSISTANT.PHYSICIAN ANESTHESIOLOGIST [address] [place] [address] [phone] Referring Orthopedics 08/08/20 Pattern Cleaner Relationship Specialty Start Date End Date Ruddy Coopre MD [address] [place] [address] PCP - General 02/16/02 Sid Storm MD [address] [place] [address] Physician Radiation Oncology 02/21/20 Vlad Velasquez MD [address] [place] [address] Home Care Provider Orthopedics 08/08/20 iRgoberto Chase RECRUITING ASSISTANT.PHYSICIAN ANESTHESIOLOGIST [address] [place] [address] 51154 Referring Orthopedics 08/08/20 Pattern Cleaner Relationship Specialty Start Date End Date Ruddy Cooper MD [address] [facility] [place] [address] PCP - General 02/16/02 Sid Storm MD [address] [facility] [place] [address] Physician Radiation Oncology 02/21/20 Vlad Velasquez MD [address] [place] [address] Home Care Provider Orthopedics 08/08/20 Rigoberto Chase, RECRUITING ASSISTANT.PHYSICIAN ANESTHESIOLOGIST [address] [place] [address] 38973 Referring Orthopedics 08/08/20 Pattern Cleaner Relationship Specialty Start Date End Date Ruddy Cooper MD [address] [facility] [place] [address] PCP - General 02/16/02 Sid Storm MD [address] [place] [address] Physician Radiation Oncology 02/21/20 Vlad Velasquez MD [address] [place] [address] Home Care Provider Orthopedics 08/08/20 Rigoberto Chase APRN.PHYSICIAN ANESTHESIOLOGIST [address] [place] [address] 58185 Referring Orthopedics 08/08/20 Pattern Cleaner Relationship Specialty Start Date End Date Ruddy Cooper MD [address] [facility] [place] [address] PCP - General 02/16/02 Sid Storm MD [address] [place] [address] Physician Radiation Oncology 02/21/20 Vlad Velasquez MD [address] [place] [address] Home Care Provider Orthopedics 08/08/20 Rigoberto Chase APRN.PHYSICIAN ANESTHESIOLOGIST [address] [place] [address] 98966 Referring Orthopedics 08/08/20 Pattern Cleaner Relationship Specialty Start Date End Date Ruddy Cooper MD [address] [place] [address] PCP - General 02/16/02 Sid Storm MD [address] [place] [address] Physician Radiation Oncology 02/21/20 Vlad Velasquez MD [address] [place] [address] Home Care Provider Orthopedics 08/08/20 Rigoberto Chase APRN.PHYSICIAN ANESTHESIOLOGIST [address] [place] [address] 46746 Referring Orthopedics 08/08/20 Pattern Cleaner Relationship Specialty Start Date End Date Ruddy Cooper MD [address] [place] [address] PCP - General 02/16/02 Sid Storm MD [address] [place] [address] Physician Radiation Oncology 02/21/20 Vlad Velasquez MD [address] [place] [address] Home Care Provider Orthopedics 08/08/20 Rigoberto Chase APRN.PHYSICIAN ANESTHESIOLOGIST [address] [place] [address] 08909 Referring Orthopedics 08/08/20 Pattern Cleaner Relationship Specialty Start Date End Date Ruddy Cooper MD [address] [place] [address] PCP - General 02/16/02 Sid Storm MD [address] [place] [address] Physician Radiation Oncology 02/21/20 Vlad Velasquez MD [address] [place] [address] Home Care Provider Orthopedics 08/08/20 Rigoberto Chase APRN.PHYSICIAN ANESTHESIOLOGIST [address] [place] [address] 34850 Referring Orthopedics 08/08/20 Pattern Cleaner Relationship Specialty Start Date End Date Ruddy Cooper MD [address] [place] [address] PCP - General 02/16/02 Sid Storm MD [address] [place] [address] Physician Radiation Oncology 02/21/20 Vlad Velasquez MD [address] [place] [address] Home Care Provider Orthopedics 08/08/20 Rigoberto Chase RECRUITING ASSISTANT.PHYSICIAN ANESTHESIOLOGIST [address] [place] [address] 09421 Referring Orthopedics 08/08/20 Pattern Cleaner Relationship Specialty Start Date End Date Ruddy Cooper MD [address] [place] [address] PCP - General 02/16/02 Sid Storm MD [address] [place] [address] Physician Radiation Oncology 02/21/20 Vlad Velasquez MD [address] [place] [address] Home Care Provider Orthopedics 08/08/20 Rigoberto Chase, RECRUITING ASSISTANT.PHYSICIAN ANESTHESIOLOGIST [address] [place] [address] 80647 Referring Orthopedics 08/08/20 Pattern Cleaner Relationship Specialty Start Date End Date Ruddy Cooper MD [address] [place] [address] PCP - General 02/16/02 Sid Storm MD [address] [place] [address] Physician Radiation Oncology 02/21/20 Vlad Velasquez MD [address] [place] [address] Home Care Provider Orthopedics 08/08/20 Rigoberto Chase APRN.PHYSICIAN ANESTHESIOLOGIST [address] [place] [address] 46308 Referring Orthopedics 08/08/20 Pattern Cleaner Relationship Specialty Start Date End Date Ruddy Cooper MD [address] [place] [address] PCP - General 02/16/02 Sid Storm MD [address] [place] [address] Physician Radiation Oncology 02/21/20 Vlad Velasquez MD [address] [place] [address] Home Care Provider Orthopedics 08/08/20 Rigoberto Chase APRN.PHYSICIAN ANESTHESIOLOGIST [address] [place] [address] 34007 Referring Orthopedics 08/08/20 Pattern Cleaner Relationship Specialty Start Date End Date Ruddy Cooper MD [address] [place] [address] PCP - General 02/16/02 Sid Storm MD [address] [place] [address] Physician Radiation Oncology 02/21/20 Vlad Velasquez MD [address] [place] [address] Home Care Provider Orthopedics 08/08/20 Rigoberto Chase APRN.PHYSICIAN ANESTHESIOLOGIST [address] [place] [address] 46327 Referring Orthopedics 08/08/20 Pattern Cleaner Relationship Specialty Start Date End Date Ruddy Cooper MD [address] [place] [address] PCP - General 02/16/02 Sid Storm MD [address] [place] [address] Physician Radiation Oncology 02/21/20 Vlad Velasquez MD [address] [place] [address] Home Care Provider Orthopedics 08/08/20 Rigoberto Chase APRN.PHYSICIAN ANESTHESIOLOGIST [address] [place] [address] 47329 Referring Orthopedics 08/08/20 Pattern Cleaner Relationship Specialty Start Date End Date Ruddy Cooper MD [address] [place] [address] PCP - General 02/16/02 Sid Storm MD [address] [place] [address] Physician Radiation Oncology 02/21/20 Vlad Velasquez MD [address] [place] [address] Home Care Provider Orthopedics 08/08/20 Rigoberto Chase APRN.PHYSICIAN ANESTHESIOLOGIST [address] [place] [address] 13526 Referring Orthopedics 08/08/20 Pattern Cleaner Relationship Specialty Start Date End Date Ruddy Cooper MD [address] [place] [address] PCP - General 02/16/02 Sid Storm MD [address] [place] [address] Physician Radiation Oncology 02/21/20 Vlad Velasquez MD [address] [place] [address] Home Care Provider Orthopedics 08/08/20 Rigoberto Chase APRN.PHYSICIAN ANESTHESIOLOGIST [address] [place] [address] 43938 Referring Orthopedics 08/08/20 Pattern Cleaner Relationship Specialty Start Date End Date Ruddy Cooper MD [address] [place] [address] PCP - General 02/16/02 Sid Storm MD [address] [place] [address] Physician Radiation Oncology 02/21/20 Vlad Velasquez MD [address] [place] [address] Home Care Provider Orthopedics 08/08/20 Rigoberto Chase RECRUITING ASSISTANT.PHYSICIAN ANESTHESIOLOGIST [address] [place] [address] 58584 Referring Orthopedics 08/08/20 Pattern Cleaner Relationship Specialty Start Date End Date Ruddy Cooper MD [address] [place], [place] 869761 PCP - General 02/16/02 Sid Storm MD [address] [place], [place] 410151 Physician Radiation Oncology 02/21/20 Vlad Velasquez MD [address] [facility] [place] [address] Home Care Provider Orthopedics 08/08/20 Rigoberto Chase, RECRUITING ASSISTANT.PHYSICIAN ANESTHESIOLOGIST [address] [place] [address] 39996 Referring Orthopedics 08/08/20 Pattern Cleaner Relationship Specialty Start Date End Date Ruddy Cooper MD [address] [place], [place] 808471 PCP - General 02/16/02 Sid Storm MD [address] [place], [place] 630601 Physician Radiation Oncology 02/21/20 Vlad Velasquez MD [address] [facility] [place] [address] Home Care Provider Orthopedics 08/08/20 Rigoberto Chase, RECRUITING ASSISTANT.PHYSICIAN ANESTHESIOLOGIST [address] [place] [address] 89430 Referring Orthopedics 08/08/20 Jaimee Bernard, PT [address] [place], [place] [id number] Title I Coordinator Post Acute Care 08/08/20 11/25/22 Pattern Cleaner Relationship Specialty Start Date End Date Ruddy Cooper MD [address] [place], [place] 943521 PCP - General 02/16/02 Sid Storm MD [address] [place] [address] Physician Radiation Oncology 02/21/20 Vlad Velasquez MD [address] [place] [address] Home Care Provider Orthopedics 08/08/20 Rigoberto Chase APRN.PHYSICIAN ANESTHESIOLOGIST [address] [address] Referring Orthopedics 08/08/20 Jaimee Bernard, PT [address] [place] [address] Title I Coordinator Post Acute Care 08/08/20 11/25/22 Pattern Cleaner Relationship Specialty Start Date End Date Ruddy Cooper MD [address] [place] [address] PCP - General 02/16/02 Sid Storm MD [address] [place] [address] Physician Radiation Oncology 02/21/20 Pattern Cleaner Relationship Specialty Start Date End Date Ruddy Cooper MD [address] [place] [address] PCP - General 02/16/02 Sid Storm MD [address] [place] [address] Physician Radiation Oncology 02/21/20 Vlad Velasquez MD [address] [place] [address] Home Care Provider Orthopedics 08/08/20 Rigoberto Chase APRN.PHYSICIAN ANESTHESIOLOGIST [address] [place] [address] 99463 Referring Orthopedics 08/08/20 Pattern Cleaner Relationship Specialty Start Date End Date Ruddy Cooper MD [address] [place] [address] PCP - General 02/16/02 Sid Storm MD [address] [place] [address] Physician Radiation Oncology 02/21/20 Vlad Velasquez MD [address] [place] [address] Home Care Provider Orthopedics 08/08/20 Rigoberto Chase APRN.PHYSICIAN ANESTHESIOLOGIST [address] [place] [address] 85294 Referring Orthopedics 08/08/20 Pattern Cleaner Relationship Specialty Start Date End Date Ruddy Cooper MD [address] [place] [address] PCP - General 02/16/02 Sid Storm MD [address] [place] [address] Physician Radiation Oncology 02/21/20 Vlad Velasquez MD [address] [place] [address] Home Care Provider Orthopedics 08/08/20 Rigoberto Chase APRN.PHYSICIAN ANESTHESIOLOGIST [address] [place] [address] 33886 Referring Orthopedics 08/08/20 Pattern Cleaner Relationship Specialty Start Date End Date Ruddy Cooper MD [address] [facility] [place] [address] PCP - General 02/16/02 Sid Storm MD [address] [facility] [place] [address] Physician Radiation Oncology 02/21/20 Vlad Velasquez MD [address] [place] [address] Home Care Provider Orthopedics 08/08/20 Rigoberto Chase RECRUITING ASSISTANT.PHYSICIAN ANESTHESIOLOGIST [address] [place] [address] [phone] Referring Orthopedics 08/08/20 Pattern Cleaner Relationship Specialty Start Date End Date Ruddy Cooper MD [address] [place] [address] PCP - General 02/16/02 Sid Storm MD [address] [place] [address] Physician Radiation Oncology 02/21/20 Vlad Velasquez MD [address] [place] [address] Home Care Provider Orthopedics 08/08/20 Rigoberto Chase RECRUITING ASSISTANT.PHYSICIAN ANESTHESIOLOGIST [address] [place] [address] 48855 Referring Orthopedics 08/08/20 Bradford Love RECRUITING ASSISTANT.EXPLORATION DRILLER [address] [place] [address] Building Equipment Inspector Internal Medicine 04/05/24 Elma Fuchs RECRUITING ASSISTANT.PHYSICIAN ANESTHESIOLOGIST [address] [place] [address] Building Equipment Inspector Internal Medicine 04/05/24 Pattern Cleaner Relationship Specialty Start Date End Date Ruddy Cooper MD [address] [place] [address] PCP - General 02/16/02 Sid Storm MD [address] [place] [address] Physician Radiation Oncology 02/21/20 Vlad Velasquez MD [address] [place] [address] Home Care Provider Orthopedics 08/08/20 Rigoberto Chase, RECRUITING ASSISTANT.PHYSICIAN ANESTHESIOLOGIST [address] [phone] Referring Orthopedics 08/08/20 Bradford Love RECRUITING ASSISTANT.EXPLORATION DRILLER [address] [place], [place] 970621 Building Equipment Inspector Internal Medicine 04/05/24 Elma Fuchs RECRUITING ASSISTANT.PHYSICIAN ANESTHESIOLOGIST [address] [place], [place] 283581 Building Equipment Inspector Internal Medicine 04/05/24 Pattern Cleaner Relationship Specialty Start Date End Date Ruddy Cooper MD [address] [place], [place] 344761 PCP - General 02/16/02 Sid Storm MD [address] [place], [place] 63412691 Physician Radiation Oncology 02/21/20 Vlad Velasquez MD [address] [place] [address] Home Care Provider Orthopedics 08/08/20 Rigoberto Chase APRN.PHYSICIAN ANESTHESIOLOGIST [address] [place] [address] 36050 Referring Orthopedics 08/08/20 Bradford Love APRN.EXPLORATION DRILLER [address] [place] [address]00 Building Equipment Inspector Internal Medicine 04/05/24 Elma Fuchs APRN.PHYSICIAN ANESTHESIOLOGIST [address] [place] [address] [facility] Internal Medicine 04/05/24 Pattern Cleaner Relationship Specialty Start Date End Date Ruddy Cooper MD [address] [place] [address] 28805 PCP - General 02/16/02 Sid Storm MD [address] [place] [address] Physician Radiation Oncology 02/21/20 Vlad Velasquez MD [address] [place] [address] Home Care Provider Orthopedics 08/08/20 Rigoberto Chase APRN.PHYSICIAN ANESTHESIOLOGIST [address] [place] [address] [phone] Referring Orthopedics 08/08/20 Bradford Love APRN.EXPLORATION DRILLER [address] [place] [address] 46264 Building Equipment Inspector Internal Medicine 04/05/24 Elma Fuchs APRN.PHYSICIAN ANESTHESIOLOGIST [address] [place] [address] Building Equipment Inspector Internal Medicine 04/05/24 Pattern Cleaner Relationship Specialty Start Date End Date Ruddy Cooper MD [address] [place] [address] PCP - General 02/16/02 Sid Storm MD [address] [place], [place] 525781 Physician Radiation Oncology 02/21/20 Vlad Velasquez MD [address] [place] [address] Home Care Provider Orthopedics 08/08/20 Rigoberto Chase RECRUITING ASSISTANT.PHYSICIAN ANESTHESIOLOGIST [address] [address] Referring Orthopedics 08/08/20 Bradford Love RECRUITING ASSISTANT.EXPLORATION DRILLER [address] [place], [place] 846191 Building Equipment Inspector Internal Medicine 04/05/24 Elma Fuchs, RECRUITING ASSISTANT.PHYSICIAN ANESTHESIOLOGIST [address] [place] [address] Building Equipment Inspector Internal Medicine 04/05/24 Pattern Cleaner Relationship Specialty Start Date End Date Ruddy Cooper MD [address] [place], [place] 274031 PCP - General 02/16/02 Sid Storm MD [address] [place], [place] 457591 Physician Radiation Oncology 02/21/20 Vlad Velasquez MD [address] [place] [address] Home Care Provider Orthopedics 08/08/20 Rigoberto Chase APRN.PHYSICIAN ANESTHESIOLOGIST [address] [place] [address] 31512 Referring Orthopedics 08/08/20 Bradford Love RECRUITING ASSISTANT.EXPLORATION DRILLER [address] [place] [address] Building Equipment Inspector Internal Medicine 04/05/24 Elma Fuchs APRN.PHYSICIAN ANESTHESIOLOGIST [address] [place] [address] Building Equipment Inspector Internal Medicine 04/05/24 Pattern Cleaner Relationship Specialty Start Date End Date Ruddy Cooper MD [address] [place] [address] PCP - General 02/16/02 Sid Storm MD [address] [place] [address] Physician Radiation Oncology 02/21/20 Vlad Velasquez MD [address] [facility] [place] [address] Home Care Provider Orthopedics 08/08/20 Rigoberto Chase APRN.PHYSICIAN ANESTHESIOLOGIST [address] [place] [address] 43288 Referring Orthopedics 08/08/20 Bradford Love, RECRUITING ASSISTANT.EXPLORATION DRILLER [address] [place] [address] Building Equipment Inspector Internal Medicine 04/05/24 Elma Fuchs APRN.PHYSICIAN ANESTHESIOLOGIST [address] [facility] [place] [address] Building Equipment Inspector Internal Medicine 07/20/24 Pattern Cleaner Relationship Specialty Start Date End Date Ruddy Cooper MD [address] [facility] [place] [address] PCP - General 02/16/02 Sid Storm MD [address] [facility] [place] [address] Physician Radiation Oncology 02/21/20 Vlad Velasquez MD [address] [place] [address] Home Care Provider Orthopedics 08/08/20 Rigoberto Chase RECRUITING ASSISTANT.PHYSICIAN ANESTHESIOLOGIST [address] [place] [address] 91364 Referring Orthopedics 08/08/20 Bradford Love RECRUITING ASSISTANT.EXPLORATION DRILLER [address] [place] [address] Building Equipment Inspector Internal Medicine 04/05/24 Elma Fuchs RECRUITING ASSISTANT.PHYSICIAN ANESTHESIOLOGIST [address] [place] [address] Building Equipment Inspector Internal Medicine 07/20/24 Pattern Cleaner Relationship Specialty Start Date End Date Ruddy Cooper MD [address] [place] [address] PCP - General 02/16/02 Sid Storm MD [address] [place] [address] Physician Radiation Oncology 02/21/20 Vlad Velasquez MD [address] [place] [address] Home Care Provider Orthopedics 08/08/20 Rigoberto Chase RECRUITING ASSISTANT.PHYSICIAN ANESTHESIOLOGIST [address] [place] [address] 33322 Referring Orthopedics 08/08/20 Bradford Love RECRUITING ASSISTANT.EXPLORATION DRILLER [address] [place] [address] Building Equipment Inspector Internal Medicine 04/05/24 Elma Fuchs RECRUITING ASSISTANT.PHYSICIAN ANESTHESIOLOGIST [address] [place] [address] Building Equipment Inspector Internal Medicine 07/20/24 Pattern Cleaner Relationship Specialty Start Date End Date Ruddy Cooper MD [address] [place] [address] PCP - General 02/16/02 Sid Storm MD [address] [place] [address] Physician Radiation Oncology 02/21/20 Vlad Velasquez MD [address] [place] [address] Home Care Provider Orthopedics 08/08/20 Rigoberto Chase RECRUITING ASSISTANT.PHYSICIAN ANESTHESIOLOGIST [address] [place] [address] 27760 Referring Orthopedics 08/08/20 Bradford Love RECRUITING ASSISTANT.EXPLORATION DRILLER [address] [place] [address] Building Equipment Inspector Internal Medicine 04/05/24 Elma Fuchs, RECRUITING ASSISTANT.PHYSICIAN ANESTHESIOLOGIST [address] [facility] [place] [address] Building Equipment Inspector Internal Medicine 07/20/24 Pattern Cleaner Relationship Specialty Start Date End Date Ruddy Cooper MD [address] [place] [address] PCP - General 02/16/02 Sid Storm MD [address] [place] [address] Physician Radiation Oncology 02/21/20 Vlad Velasquez MD [address] [place] [address] Home Care Provider Orthopedics 08/08/20 Rigoberto Chase RECRUITING ASSISTANT.PHYSICIAN ANESTHESIOLOGIST [address] [address] Referring Orthopedics 08/08/20 Bradford Love RECRUITING ASSISTANT.EXPLORATION DRILLER [address] [place] [address] Building Equipment Inspector Internal Medicine 04/05/24 Elma Fuchs RECRUITING ASSISTANT.PHYSICIAN ANESTHESIOLOGIST [address] [place] [address] Building Equipment Inspector Internal Medicine 07/20/24 Pattern Cleaner Relationship Specialty Start Date End Date Ruddy Cooper MD [address] [place] [address] PCP - General 02/16/02 Sid Storm MD [address] [place] [address] Physician Radiation Oncology 02/21/20 Vlad Velasquez MD [address] [place] [address] Home Care Provider Orthopedics 08/08/20 Rigoberto Chase, RECRUITING ASSISTANT.PHYSICIAN ANESTHESIOLOGIST [address] [place] [address] Referring Orthopedics 08/08/20 Bradford Love, RECRUITING ASSISTANT.EXPLORATION DRILLER [address] [place] [address] Building Equipment Inspector Internal Medicine 04/05/24 Elma Fuchs RECRUITING ASSISTANT.PHYSICIAN ANESTHESIOLOGIST [address] [place] [address] Building Equipment Inspector Internal Medicine 07/20/24 Pattern Cleaner Relationship Specialty Start Date End Date Ruddy Cooper MD [address] [place] [address] PCP - General 02/16/02 Sid Storm MD [address] [place] [address] Physician Radiation Oncology 02/21/20 Vlad Velasquez MD [address] [place] [address] Home Care Provider Orthopedics 08/08/20 Rigoberto Chase, RECRUITING ASSISTANT.PHYSICIAN ANESTHESIOLOGIST [address] [place] [address] Referring Orthopedics 08/08/20 Bradford Love, RECRUITING ASSISTANT.EXPLORATION DRILLER [address] [place] [address] Building Equipment Inspector Internal Medicine 04/05/24 Elma Fuchs RECRUITING ASSISTANT.PHYSICIAN ANESTHESIOLOGIST [address] [facility] [place] [address] Building Equipment Inspector Internal Medicine 07/20/24 Pattern Cleaner Relationship Specialty Start Date End Date Ruddy Cooper MD [address] [facility] [place] [address] PCP - General 02/16/02 Sid Storm MD [address] [place] [address] [place] [address] Physician Radiation Oncology 02/21/20 Vlad Velasquez MD [address] [place] [address] Home Care Provider Orthopedics 08/08/20 Rigoberto Chase APRN.PHYSICIAN ANESTHESIOLOGIST [address] [address] Referring Orthopedics 08/08/20 Bradford Love APRN.EXPLORATION DRILLER [address] [facility] [place] [address] Building Equipment Inspector Internal Medicine 04/05/24 Elma Fuchs RECRUITING ASSISTANT.PHYSICIAN ANESTHESIOLOGIST [address] [facility] [place] [address] Building Equipment Inspector Internal Medicine 07/20/24 Pattern Cleaner Relationship Specialty Start Date End Date Ruddy Cooper MD [address] [facility] [place] [address] PCP - General 02/16/02 Sid Storm MD [address] [address] Physician Radiation Oncology 02/21/20 Vlad Velasquez MD [address] [place] [address] Home Care Provider Orthopedics 08/08/20 Rigoberto Chase, RECRUITING ASSISTANT.PHYSICIAN ANESTHESIOLOGIST [address] [place] [address] Referring Orthopedics 08/08/20 Bradford Love, RECRUITING ASSISTANT.EXPLORATION DRILLER [address] [place] [address] Building Equipment Inspector Internal Medicine 04/05/24 Elma Fuchs RECRUITING ASSISTANT.PHYSICIAN ANESTHESIOLOGIST [address] [place] [address] Building Equipment Inspector Internal Medicine 07/20/24 Pattern Cleaner Relationship Specialty Start Date End Date Rudyd Cooper MD [address] [place] [address] PCP - General 02/16/02 Sid Storm MD [address] [place] [address] Physician Radiation Oncology 02/21/20 Vlad Velasquez MD [address] [place] [address] Home Care Provider Orthopedics 08/08/20 Rigoberto Chase, RECRUITING ASSISTANT.PHYSICIAN ANESTHESIOLOGIST [address] [place] [address] Referring Orthopedics 08/08/20 Bradford Love, RECRUITING ASSISTANT.EXPLORATION DRILLER [address] [place] [address] Building Equipment Inspector Internal Medicine 04/05/24 Elma Fuchs APRN.PHYSICIAN ANESTHESIOLOGIST [address] [place] [address] Building Equipment Inspector Internal Medicine 07/20/24 Pattern Cleaner Relationship Specialty Start Date End Date Ruddy Cooper MD [address] [place] [address] PCP - General 02/16/02 Sid Storm MD [address], [place] 24[address]21 Physician Radiation Oncology 02/21/20 Vlad Velasquez MD [address] [place] [address] Home Care Provider Orthopedics 08/08/20 Rigoberto Chase APRN.PHYSICIAN ANESTHESIOLOGIST [address] [address] Referring Orthopedics 08/08/20 Bradford Love APRN.EXPLORATION DRILLER [address] [place] [address] Building Equipment Inspector Internal Medicine 04/05/24 Elma Fuchs APRN.PHYSICIAN ANESTHESIOLOGIST [address] [place] [address] Building Equipment Inspector Internal Medicine 04/05/24 07/16/24 Elma Fuchs APRN.PHYSICIAN ANESTHESIOLOGIST [address] [place] [address] Building Equipment Inspector Internal Medicine 07/20/24 Pattern Cleaner Relationship Specialty Start Date End Date Ruddy Cooper MD [address] [place] [address] PCP - General 02/16/02 Sid Storm MD [address] [place], [place] [address] Physician Radiation Oncology 02/21/20 Vlad Velasquez MD [address] [place] [address] Home Care Provider Orthopedics 08/08/20 Rigoberto Chase, RECRUITING ASSISTANT.PHYSICIAN ANESTHESIOLOGIST [address] [place] [address] Referring Orthopedics 08/08/20 Bradford Love RECRUITING ASSISTANT.EXPLORATION DRILLER [address] [place], [place] 330701 Building Equipment Inspector Internal Medicine 04/05/24 Elma Fuchs, RECRUITING ASSISTANT.PHYSICIAN ANESTHESIOLOGIST [address] [place], [place] 240131 Building Equipment Inspector Internal Medicine 07/20/24 Lamar De Leon, RN [address] [place], [place] [id number] Primary Care Enrollment Processor Internal Medicine 09/01/24 Pattern Cleaner Relationship Specialty Start Date End Date Ruddy Cooper MD [address] [place], [place] 287461 PCP - General 02/16/02 Sid Storm MD [address] [place] [address] Physician Radiation Oncology 02/21/20 lVad Velasquez MD [address] [place] [address] Home Care Provider Orthopedics 08/08/20 Rigoberto Chase APRN.PHYSICIAN ANESTHESIOLOGIST [address] [place] [address] Referring Orthopedics 08/08/20 Bradford Love, SHAHID.EXPLORATION DRILLER [address] [place] [address] Building Equipment Inspector Internal Medicine 04/05/24 Elma Fuchs RECRUITING ASSISTANT.PHYSICIAN ANESTHESIOLOGIST [address] [place] [address] Building Equipment Inspector Internal Medicine 07/20/24 Lamar De Leon, RN [address] [place] [address] Primary Care Enrollment Processor Internal Medicine 09/01/24 Pattern Cleaner Relationship Specialty Start Date End Date Ruddy Cooper MD [address] [place] [address] PCP - General 02/16/02 Sid Storm MD [address] [place] [address] Physician Radiation Oncology 02/21/20 Vlad Velasquez MD [address] [place] [address] Home Care Provider Orthopedics 08/08/20 Rigoberto Chase, SHAHID.PHYSICIAN ANESTHESIOLOGIST [address] [place] [address] Referring Orthopedics 08/08/20 Bradford Love, SHAHID.EXPLORATION DRILLER [address] [place] [address] Building Equipment Inspector Internal Medicine 04/05/24 Elma Fuchs APRN.PHYSICIAN ANESTHESIOLOGIST [address] [place] [address] Building Equipment Inspector Internal Medicine 07/20/24 Lamar De Leon RN [address] [place], [place] [id number] Primary Care Enrollment Processor Internal Medicine 09/01/24 Pattern Cleaner Relationship Specialty Start Date End Date Ruddy Cooper MD [address] [place] [address] PCP - General 02/16/02 Sid Storm MD [address], [place] 229181 Physician Radiation Oncology 02/21/20 Vlad Velasquez MD [address] [place] [address] Home Care Provider Orthopedics 08/08/20 Rigoberto Chase, RECRUITING ASSISTANT.PHYSICIAN ANESTHESIOLOGIST [address] [phone] Referring Orthopedics 08/08/20 Bradford Love RECRUITING ASSISTANT.EXPLORATION DRILLER [address] [place] [address] Building Equipment Inspector Internal Medicine 04/05/24 Elma Fuchs, RECRUITING ASSISTANT.PHYSICIAN ANESTHESIOLOGIST [address] [place] [address] Building Equipment Inspector Internal Medicine 07/20/24 Lamar De Leon RN [address] [place] [address] Primary Care Enrollment Processor Internal Medicine 09/01/24 Pattern Cleaner Relationship Specialty Start Date End Date Ruddy Cooper MD [address] [place], [place] 004511 PCP - General 02/16/02 Sid Storm MD [address], [place] 074091 Physician Radiation Oncology 02/21/20 Vlad Velasquez MD [address] [place] [address] Home Care Provider Orthopedics 08/08/20 Rigoberto Chase, RECRUITING ASSISTANT.PHYSICIAN ANESTHESIOLOGIST [address] [phone] Referring Orthopedics 08/08/20 Bradford Love, RECRUITING ASSISTANT.EXPLORATION DRILLER [address] [place], [place] 479301 Building Equipment Inspector Internal Medicine 04/05/24 Elma Fuchs, RECRUITING ASSISTANT.PHYSICIAN ANESTHESIOLOGIST [address] [place], [place] 395261 Building Equipment Inspector Internal Medicine 07/20/24 Lamar De Leon, RN [address] [place], [place] [id number] Primary Care Enrollment Processor Internal Medicine 09/01/24 Team Status: Active Member [...] End: August 30, 2024 Dr. Veto Lynne , DO Other Provider Active Start: August 25, 2024 End: August 30, 2024 Team Status: Active Member Role Status Dates Dr. Ruddy Cooper MD Primary Care Provider Active Start: August 26, 2024 Dr. Hermes Salas , DO Emergency Provider Active Start: August 26, 2024 Dr. Isabel Michelle MD Admit Provider Active St art: August 26, 2024 Dr. Isabel Michelle MD Other Provider Active St art: August 26, 2024 Dr. Veto Lynne , DO Attending Provider Active Start: August 26, 2024 Dr. Veto Lynne DO Other Provider Active Start: August 26, 2024 Team Status: Active Member Role Status Dates Dr. Ruddy Cooper MD Primary Care Provider Active Start: August 27, 2024 Dr. Hermes Salas , DO Emergency Provider Active Start: August 27, 2024 Dr. Isabel Michelle MD Admit Provider Active St art: August 27, 2024 Dr. Isabel Michelle MD Other Provider Active St art: August 27, 2024 Dr. Veto Lynne , DO Attending Provider Active Start: August 27, 2024 Dr. Veto Lynne DO Other Provider Active Start: August 27, [...] art: August 28, 2024 Dr. Veto Lynne DO Attending Provider Active Start: August 28, 2024 Dr. Veto Lynne , DO Other Provider Active Start: August 28, 2024 Team Status: Active Member Role Status Dates Dr. Ruddy Cooper MD Primary Care Provider Active Start: August 29, 2024 Dr. Hermes Salas , DO Emergency Provider Active Start: August 29, 2024 Dr. Isabel Michelle MD Admit Provider Active St art: August 29, 2024 Dr. Isabel Michelle MD Other Provider Active St art: August 29, 2024 Dr. Veto Lynne , DO Attending Provider Active Start: August 29, 2024 Dr. Veto Lynne , DO Other Provider Active Start: August 29, 2024 Team Status: Active Member Role Status Dates Dr. Ruddy Cooper MD Primary Care Provider Active Start: August 30, 2024 Dr. Hermes Salas , DO Emergency Provider Active Start: August 30, 2024 Dr. Isabel Michelle MD Admit Provider Active St art: August 30, 2024 Dr. Isabel Michelle MD Other Provider Active St art: August 30, 2024 Dr. Jose Mariee , DO Attending Provider Active Start: August 30, 2024 Dr. Jose Mariee , DO Other Provider Active Star t: August 30, 2024 Dr. Veto Lynne , DO Other Provider Active Start: August 30, 2024 Team Status: Inactive Member Role Status Dates Dr. Ruddy Cooper MD Primary Care Provider Active Start: September 08, 2024 End: September 09, 2024 Dr. Yossi Heredia MD Emergency Provider Active S tart: September 08, 2024 End: September 09, 2024 Pattern Cleaner Relationship Specialty Start Date End Date Ruddy Cooper MD [address] [place] [address] PCP - General 02/16/02 Sid Storm MD [address], [place] 7306[address] Physician Radiation Oncology 02/21/20 Vlad Velasquez MD [address] [place] [address] Home Care Provider Orthopedics 08/08/20 Rigoberto Chase APRN.PHYSICIAN ANESTHESIOLOGIST [address] [address] Referring Orthopedics 08/08/20 Elma Fuchs APRN.PHYSICIAN ANESTHESIOLOGIST [address] [place] [address] Building Equipment Inspector Internal Medicine 07/20/24 Lamar De Leon, LAURITA [address] [place] [id number] Primary Care Enrollment Processor Internal Medicine 09/01/24 Bradford Love, RECRUITING ASSISTANT.EXPLORATION DRILLER [address] [place], [place] 104801 Building Equipment Inspector Internal Medicine 09/15/24 Pattern Cleaner Relationship Specialty Start Date End Date Ruddy Cooper MD [address] [place] [address] PCP - General 02/16/02 Sid Storm MD [address], [place] 724081 Physician Radiation Oncology 02/21/20 Vlad Velasquez MD [address] [place] [address] Home Care Provider Orthopedics 08/08/20 Rigoberto Chase, RECRUITING ASSISTANT.PHYSICIAN ANESTHESIOLOGIST [address] [facility], [address] [place] [address] [phone] Referring Orthopedics 08/08/20 Elma Fuchs, RECRUITING ASSISTANT.PHYSICIAN ANESTHESIOLOGIST [address] [place], [place] 315841 Building Equipment Inspector Internal Medicine 07/20/24 Bradford Love, RECRUITING ASSISTANT.EXPLORATION DRILLER [address] [place], [place] 630281 Building Equipment Inspector Internal Medicine 09/15/24 Team Status: Inactive Member Role Status Dates Dr. Ruddy Cooper MD Primary Care Provider Active Start: September 08, 2024 End: September 09, 2024 Dr. Yossi Heredia MD Attending Provider Active S tart: September 08, 2024 End: September 09, 2024 Dr. Yossi Heredia MD Emergency Provider Active S tart: September 08, 2024 End: September 09, 2024 Team Status: Active Member Role Status Dates Dr. Ruddy Cooper MD Primary Care Provider Active Start: October 10, 2024 Dr. Jose Dodd DO Emergency Provider Active Start: October 10, 2024 Dr. Luis Baer MD Admit Provider Active Start: October 10, 2024 Dr. Luis Baer MD Attending Provider Active Start: October 10, 2024 Pattern Cleaner Relationship Specialty Start Date End Date Ruddy Cooper MD [address] [place], [place] 533631 PCP - General 02/16/02 Sid Storm MD [address], [place] 281121 Physician Radiation Oncology 02/21/20 Vlad Velasquez MD [address] [place] [id number] Home Care Provider Orthopedics 08/08/20 Rigoberto Chase, RECRUITING ASSISTANT.PHYSICIAN ANESTHESIOLOGIST [address] [phone] Referring Orthopedics 08/08/20 Bradford Love, RECRUITING ASSISTANT.EXPLORATION DRILLER [address] [place], [place] 298151 Building Equipment Inspector Internal Medicine 04/05/24 09/14/24 Elma Fuchs, RECRUITING ASSISTANT.PHYSICIAN ANESTHESIOLOGIST [address] [place], [place] [address]2625691 Building Equipment Inspector Internal Medicine 07/20/24 Lamar De Leon, RN [address] [place] [address] Primary Care Enrollment Processor Internal Medicine 09/01/24 09/29/24 Bradford Love, RECRUITING ASSISTANT.EXPLORATION DRILLER [address] [place] [address] Building Equipment Inspector Internal Medicine 09/15/24 Team Status: Inactive Member Role Status Dates Dr. Ruddy Cooper MD Primary Care Provider Active Start: October 10, 2024 End: October 12, 2024 Dr. Jose Dodd , Emergency Provider Active Start: October 10, 2024 End: October 12, 2024 Dr. Luis Baer MD Admit Provider Active Start: October 10, 2024 End: October 12, 2024 Dr. Luis Baer MD Attending Provider Active Start: October 10, 2024 End: October 12, 2024 Team Status: Active Member Role Status Dates Dr. Ruddy Cooper MD Primary Care Provider Active Start: October 10, 2024 Dr. Jose Dodd DO Emergency Provider Active Start: October 10, 2024 Dr. Luis Baer MD Admit Provider Active Start: October 10, 2024 Dr. Luis Baer MD Attending Provider Active Start: October 10, 2024 Dr. Luis Baer MD Other Provider Active Start: October 10, 2024 Team Status: Active Member Role Status Dates Dr. Ruddy Cooper MD Primary Care Provider Active Start: October 11, 2024 Dr. Jose Dodd DO Emergency Provider Active Start: October 11, 2024 Dr. Luis Baer MD Admit Provider Active Start: October 11, 2024 Dr. Luis Baer MD Attending Provider Active Start: October 11, 2024 Dr. Luis Baer MD Other Provider Active Start: October 11, 2024 Team Status: Active Member Role Status Dates Dr. Ruddy Cooper MD Primary Care Provider Active Start: October 12, 2024 Dr. Jose Dodd DO Emergency Provider Active Start: October 12, 2024 Dr. Luis Baer MD Admit Provider Active Start: October 12, 2024 Dr. Luis Baer MD Attending Provider Active Start: October 12, 2024 Dr. Luis Baer MD Other Provider Active Start: October 12, 2024 Pattern Cleaner Relationship Specialty Start Date End Date Ruddy Cooper MD [address] [place] [address] PCP - General 02/16/02 Sid Storm MD [address] [place] [address] Physician Radiation Oncology 02/21/20 Vlad Velasquez MD [address] [place] [address] Home Care Provider Orthopedics 08/08/20 Rigoberto Chase RECRUITING ASSISTANT.PHYSICIAN ANESTHESIOLOGIST [address] [phone] Referring Orthopedics 08/08/20 Elma Fuchs RECRUITING ASSISTANT.PHYSICIAN ANESTHESIOLOGIST [address] [place], [place] 580471 Building Equipment Inspector Internal Medicine 07/20/24 Bradford Love, RECRUITING ASSISTANT.EXPLORATION DRILLER [address] [place], [place] 152141 Building Equipment Inspector Internal Medicine 09/15/24 Mireya Thomas, topographical field assistant Enrollment Processor Education Services 10/13/24 Pattern Cleaner Relationship Specialty Start Date End Date Ruddy Cooper MD [address] [place], [place] 215141 PCP - General 02/16/02 Sid Storm MD [address] [place] [address] Physician Radiation Oncology 02/21/20 Vlad Velasquez MD [address] [place] [address] Home Care Provider Orthopedics 08/08/20 Rigoberto Chase APRN.PHYSICIAN ANESTHESIOLOGIST [address] [address] Referring Orthopedics 08/08/20 Elma Fuchs APRN.PHYSICIAN ANESTHESIOLOGIST [address] [place] [address] Building Equipment Inspector Internal Medicine 07/20/24 Bradford Love APRN.EXPLORATION DRILLER [address] [place] [address] Building Equipment Inspector Internal Medicine 09/15/24 Mireya Thomas RN Primary Care Enrollment Processor Education Services 10/13/24 Dea Dietz LSW [employer] Drilling Superintendent 10/14/24 Pattern Cleaner Relationship Specialty Start Date End Date Ruddy Cooper MD [address] [place] [address] PCP - General 02/16/02 Sid Storm MD [address] [place] [address] Physician Radiation Oncology 02/21/20 Vlad Velasquez MD [address] [place] [address] Home Care Provider Orthopedics 08/08/20 Rigoberto Chase APRN.PHYSICIAN ANESTHESIOLOGIST [address] [address] Referring Orthopedics 08/08/20 Elma Fuchs APRN.PHYSICIAN ANESTHESIOLOGIST [address] [place] [address] Building Equipment Inspector Internal Medicine 07/20/24 Bradford Love, RECRUITING ASSISTANT.EXPLORATION DRILLER [address] [place] [address] Building Equipment Inspector Internal Medicine 09/15/24 Mireya Thomas RN Primary Care Enrollment Processor Education Services 10/13/24 Dea Dietz LSW [employer] Drilling Superintendent 10/14/24 Pattern Cleaner Relationship Specialty Start Date End Date Ruddy Cooper MD [address] [place] [address] PCP - General 02/16/02 Sid Storm MD [address] [place] [address] Physician Radiation Oncology 02/21/20 Vlad Velasquez MD [address] [place] [address] Home Care Provider Orthopedics 08/08/20 Rigoberto Chase RECRUITING ASSISTANT.PHYSICIAN ANESTHESIOLOGIST [address] [address] Referring Orthopedics 08/08/20 Elma Fuchs RECRUITING ASSISTANT.PHYSICIAN ANESTHESIOLOGIST [address] [place], [place] [address]89611 Building Equipment Inspector Internal Medicine 07/20/24 Bradford Love, RECRUITING ASSISTANT.EXPLORATION DRILLER [address] [place] [address] Building Equipment Inspector Internal Medicine 09/15/24 Mireya Thomas RN Primary Care Enrollment Processor Education Services 10/13/24 Dea Dietz LSW [employer] Drilling Superintendent 10/14/24 Pattern Cleaner Relationship Specialty Start Date End Date Ruddy Cooper MD [address] [place], [place] 427481 PCP - General 02/16/02 Sid Storm MD [address] [place] [address] Physician Radiation Oncology 02/21/20 Vlad Velasquez MD [address] [place] [address] Home Care Provider Orthopedics 08/08/20 Rigoberto Chase APRN.PHYSICIAN ANESTHESIOLOGIST [address] [facility], [address] [place] [address] Referring Orthopedics 08/08/20 Elma Fuchs RECRUITING ASSISTANT.PHYSICIAN ANESTHESIOLOGIST [address] [place] [address] Building Equipment Inspector Internal Medicine 07/20/24 Bradford Love APRN.EXPLORATION DRILLER [address] [place], [place] 576981 Building Equipment Inspector Internal Medicine 09/15/24 Mireya Thomas, topographical field assistant Enrollment Processor Education Services 10/13/24 Dea Dietz LSW [employer] Drilling Superintendent 10/14/24 Pattern Cleaner Relationship Specialty Start Date End Date Ruddy Cooper MD [address] [place], [place] 662041 PCP - General 02/16/02 Sid Storm MD [address] [place] [address] Physician Radiation Oncology 02/21/20 Vlad Velasquez MD [address] [place] [address] Home Care Provider Orthopedics 08/08/20 Rigoberto Chase APRN.PHYSICIAN ANESTHESIOLOGIST [address] [facility], [address] [place] [address] Referring Orthopedics 08/08/20 Elma Fuchs RECRUITING ASSISTANT.PHYSICIAN ANESTHESIOLOGIST [address] [place] [address] Building Equipment Inspector Internal Medicine 07/20/24 Bradford Love, SHAHID.EXPLORATION DRILLER [address] [place], [place] 341851 Building Equipment Inspector Internal Medicine 09/15/24 Mireya Thomas, topographical field assistant Enrollment Processor Education Services 10/13/24 Dea Dietz LSW [employer] Drilling Superintendent 10/14/24 Team Status: Active Member Role Status Dates Dr. Ruddy Cooper MD Primary Care Provider Active Start: October 19, 2024 Dr. Mikel Bonilla DO Emergency Provider Active Start : October 19, 2024 Dr. Desiree Awan MD Admit Provider Active Star t: October 19, 2024 Dr. Desiree Awan MD Attending Provider Active Start: October 19, 2024 Dr. Desiree Awan MD Other Provider Active Star t: October 19, 2024 Goals (unrecognized section and content) Goals may [...] BE BASED ON THE PRIMARY CLINICAL RECORDS. [employer] [facility]. provides no warranty or guarantee of the accuracy or completeness of information in this document.
[2024-10-19 22:50] LABS: Ammonia < 10.0 umol/L (11-51)
[2024-10-19] MEDS: 0.9% Normal Saline (1000mL) 1,000 ML 100 ML IV (22:55)
[2024-10-19 23:17] LABS: Bedside Glucose 85 mg/dL (74-106)
[2024-10-20 03:00] VITALS: BP 128/72; PULSE 95; RESP 16; TEMP 37; O2SAT 98
[2024-10-20 05:39] LABS: Absolute Lymphocyte Count 1.59 X10^3/uL (0.83-4.51); Absolute Neutrophil Count 3.4 X10^3/uL (2.0-7.7); Basophil# 0.05 X10^3/uL; Basophil% 0.8 % (0-1); Eosinophil# 0.37 X10^3/uL; Eosinophils% 6.2 % (0-5); Hematocrit 36.3 % (37-47); Hemoglobin 11.6 g/dL (12.0-15.0); Lymphocyte # 1.59 X10^3/ul (0.83-4.51); Lymphocyte % 26.6 % (19-41); Mean Corpuscular Hgb 29.8 pg (27.0-32.0); Mean Corpuscular Volume 93.3 fL (81-99); Mean Platelet Vol. 8.4 fl (6.2-12.0); Monocyte# 0.51 X10^3/uL; Monocyte% 8.5 % (0-10); NRBC Flagged by Analyzer 0 % (0-5); Neutrophil # 3.43 X10^3/uL (2.7-7.7); Neutrophil % 57.4 % (47-70); Platelet Count 317 K/mm3 (150-450); RBC Distribution Width CV 12.5 % (11.6-14.6); RBC Distribution Width SD 42.8 fl (35.1-43.9); Red Blood Count 3.89 M/mm3 (4.2-5.4)
[2024-10-20 06:43] LABS: ALB/GLOB Ratio 1.4 RATIO (0.9-2.4); AST(SGOT) 24 U/L (<=31); Alanine Aminotransfer ALT/SGPT 17 U/L (<=34); Albumin, Serum 3.3 g/dL (3.4-4.8); Alkaline Phosphatase 40 U/L (35-104); Anion Gap 11 (5-15); BUN 20 mg/dL (4-19); Calcium,Total 8.7 mg/dL (7.6-11.0); Carbon Dioxide 22.1 mmol/L (21.0-32.0); Chloride 107 mmol/L (98-108); Creatinine, Serum 0.93 mg/dL (0.70-1.20); EST Glomerular Filtration Rate 63 (>60); Estimated Creatinine Clearance 41.85 ml/min (50-250); Globulin 2.4 g/dL (2.2-4.2); Glucose 186 mg/dL (70-99); Potassium 4.4 mmol/L (3.3-5.1); Protein, Total 5.7 g/dL (5.9-8.4); Sodium Level 140 mmol/L (133-145); Total Bilirubin 0.27 mg/dL (0.00-1.30)
[2024-10-20 06:58] LABS: Bedside Glucose 157 mg/dL (74-106)
[2024-10-20 09:00] VITALS: BP 123/61; PULSE 74; RESP 14; TEMP 37; O2SAT 98
[2024-10-20] MEDS: 0.9% Normal Saline (1000mL) 1,000 ML 100 ML IV (10:06)
[2024-10-20] MEDS: Aspirin 81 MG TAB.CHEW PO (10:06)
[2024-10-20 13:17] LABS: Bedside Glucose 122 mg/dL (74-106)
--- NOTE | 2024-10-20 14:06 | CASEMGMT ---
Social Work- ADRYAN collaborated with physical and occupational therapists, transfusion aide, and care management manager regarding discharge planning. ADRYAN called KEN Keith and left a voicemail to collaborate on care. Pt has a private duty caregiver that started assisting pt four days ago. dietetic aide assists pt 12-3pm and 7-9pm Mondays, Wednesdays, and Fridays, as well as every other weekend. dietetic aide has noticed a variability in physical function; at times being physically more independent, but on Friday noted that pt could not stand up independently. dietetic aide notes confusion at baseline. Pt has been reported to be unable to manage medications and has increasing needs with ADLs due to confusion/forgetfulness. Pt is oriented to self only at this time and unable to have appropriate discussions regarding discharge plans. ADRYAN called pt chet Stuart to coordinate discharge plans and left a voicemail. ADRYAN remains available to follow. THEA Mott
--- NOTE | 2024-10-20 15:06 | CASEMGMT ---
Social Work- ADRYAN spoke with pt dtr Sade regarding discharge planning. Sade reports that pt has had difficulty with ambulation at home and was surprised that pt was able to perform well with therapy. Sade reports that pt had trouble understanding pill organizer and had not been taking medications correctly until Friday when neighborhood aide began assisting pt. Sade reports that pt is on wait list for AL at [facility] and would be interested in referral for memory care there. Sade agreeable to speaking with Oma at [facility] regarding LTC EDUARDO. Sade reports that she has access to all of pt financials and could share information needed for determination. Sade reports that pt has some resources. ADRYAN discussed allowable items to spend down assets and discussed EDUARDO process. PHILIP notified of referral request. ADRYAN remains available to follow. ADRYAN received a call from KEN Keith, who reports that she spoke with Sade Friday regarding pt needing more care in the home. Sagar reports that she encouraged Sade to consider [facility] program and utilize private pay aides in the evenings and mornings. Sagar shared that she spoke to Sade about the potential need to pursue guardianship. ADRYAN received an email and phone call from Oma at [facility] sharing that pt has LTC coverage through [employer] plan. ADRYAN requested, if referral accepted, that [facility] run plan to determine if pt could admit under that benefit. ADRYAN remains available to follow for discharge planning needs. THEA Mott
[2024-10-20 15:15] VITALS: BP 122/73; PULSE 80; RESP 14; TEMP 37.2; O2SAT 98
--- NOTE | 2024-10-20 16:05 | CASEMGMT ---
FREEMAN Pt is unable to comprehend FREEMAN form. VM left for pts daughter (Sade) to review with her. Copy left in pts room. Will attempt again in the morning if no response from pts daughter. Sujata Toth DC Planning Asst.
--- NOTE | 2024-10-20 16:16 | CASEMGMT ---
LYDIA Spoke with patients daughter to complete FREEMAN form. FREEMAN form and its content were verbally explained and questions were answered to the best of my ability.? Daughter voiced understanding and signed FREEMAN form.? Patient provided a copy of signed FREEMAN form and original placed in patient's chart.? Patient had no further questions. Sujata Toth, Discharge Planning Asst
[2024-10-20 17:05] LABS: Bedside Glucose 119 mg/dL (74-106)
--- NOTE | 2024-10-20 17:54 | PCM.PN.HOSP ---
Reason for Visit Reason for Visit: Diagnoses Weakness (10/19/24) Subjective Subjective Patient was seen and examined today, the nurses stated that she was mildly agitated today, when I saw the patient she did not appear agitated however. I talked to the daughter at length on the phone I told the daughter it was my family and that the patient did have dementia. The daughter requested that she be given her nortriptyline at night for sleep-I told her I did not have a problem with this. She takes 150 mg at bedtime. Objective Data Objective Data Vital Signs: Vital Signs Temp Pulse Resp BP Pulse Ox O2 Del Method 98.9 F 80 14 122/73 H 98 Room Air 10/20/24 15:15 10/20/24 15:15 10/20/24 15:15 10/20/24 15:15 10/20/24 15:15 10/20/24 15:15 Oxygen Delivery Method Room Air Weight: 64.7 kg Body Mass Index (BMI) 27.8 Intake & Output: Intake and Output for Last 24 Hours 10/18/24 10/19/24 10/20/24 23:59 23:59 23:59 Intake Total 500 / 500 1000 / 1000 Balance 500 / 500 1000 / 1000 Lab / Micro Data 10/20/24 04:41 10/20/24 04:41 Labs: Laboratory Results - last 24 hr 10/19/24 13:40: Vitamin B12 725 10/19/24 14:15: Urine Opiates Screen NEGATIVE, U Buprenorphine Qual NEGATIVE, Ur Oxycodone Screen NEGATIVE, Urine Methadone Screen NEGATIVE, Urine Fentanyl Screen NEGATIVE, Ur Barbiturates Screen NEGATIVE, Ur Phencyclidine Scrn NEGATIVE, Ur Amphetamines Screen NEGATIVE, U Benzodiazepines Scrn NEGATIVE, Urine Cocaine Screen NEGATIVE, U Cannabinoids Screen NEGATIVE 10/19/24 22:17: Ammonia < 10.0 L 10/19/24 22:58: POC Glucose 85 10/20/24 04:41: WBC 6.0, RBC 3.89 L, Hgb 11.6 L, Hct 36.3 L, MCV 93.3, MCH 29.8, MCHC 32.0, RDW Std Deviation 42.8, RDW Coeff of Meño 12.5, Plt Count 317, MPV 8.4, Immature Gran % (Auto) 0.500, Neut % (Auto) 57.4, Lymph % (Auto) 26.6, Smith % (Auto) 8.5, Eos % (Auto) 6.2 H, Baso % (Auto) 0.8, Absolute Neuts (auto) 3.4, Absolute Lymphs (auto) 1.59, Nucleated RBC % 0, Sodium 140, Potassium 4.4, Chloride 107, Carbon Dioxide 22.1, Anion Gap 11, BUN 20 H, Creatinine 0.93, Estim Creat Clear Calc 41.85 L, Est GFR (MDRD) Non-Af 63, BUN/Creatinine Ratio 21.0 H, Glucose 186 H, Calcium 8.7, Total Bilirubin 0.27, AST 24, ALT 17, Alkaline Phosphatase 40, Total Protein 5.7 L, Albumin 3.3 L, Globulin 2.4, Albumin/Globulin Ratio 1.4, TSH 2.300 10/20/24 06:23: POC Glucose 157 H 10/20/24 12:37: POC Glucose 122 H 10/20/24 16:37: POC Glucose 119 H Physical Exam Const alert and no apparent distress Constitutional Narrative: Patient is confused but she is not agitated General Appearance: cooperative, well kempt and well developed Orientation / Consciousness: awake and oriented to person HEENT normocephalic, head/scalp atraumatic and moist oral mucous membranes Eyes PERRL, EOMs intact bilaterally and conjunctivae normal Neck supple, no JVD, thyroid normal and no carotid bruits General: trachea midline Resp normal respiratory effort, no retractions, no use of accessory muscles and clear to auscultation bilaterally Auscultation: Negative for rales, rhonchi or wheezes Cardio regular rate, regular rhythm, no murmurs, no rub and no gallops GI normal to inspection, nondistended, normoactive bowel sounds, soft to palpation, non-tender and non-distended Extremity no clubbing, cyanosis or edema Skin no rashes or lesions noted General Skin Exam: no breakdown Neuro CN's II-XII intact bilaterally, no focal motor deficits and no sensory deficits noted Neuro Narrative: Patient is confused, she is not agitated Sensorium / Orientation: awake, alert and oriented to person Speech: speech normal Psych Psych Narrative: Patient is confused, she is not agitated Assessment & Plan Assessment/Plan (1) Generalized weakness: PLAN: Plan 1. Acute on chronic debility-secondary to multiple medical problems including dementia and type 2 diabetes with neuropathy-PT and OT will continue to work with the patient, she will need placement in a custodial facility. I talked at length with the patient's daughter by phone deja-she is in [place]-I feel that the patient does have dementia. Patient's CODE STATUS will be a DNR CC arrest no intubation. The daughter who is her POA and I came to the agreement that it would not be in the patient's best interest to start her on medication for Alzheimer's disease. Patient also had an adverse effect from being on Seroquel previously-she became very lethargic on this medication. #2 type 2 diabetes-patient is on sliding scale insulin, I placed her back on metformin #3 essential hypertension-patient is not on losartan at this time, I will observe her blood pressure off this medication-she may not need this medication. Total clinical time spent by myself addressing the patient's medical issues, reviewing all of her data, and collaborating with patient's care team: 35 minutes Charges/Coding Visit Charges Inpatient E&M: 34644 Subs Hosp L2
[2024-10-20 22:12] VITALS: BP 158/83; PULSE 76; RESP 17; TEMP 36.4; O2SAT 100
[2024-10-20 23:24] LABS: Bedside Glucose 136 mg/dL (74-106)
[2024-10-21 05:45] VITALS: BP 148/81; PULSE 79; RESP 16; TEMP 36.6; O2SAT 99
[2024-10-21 06:25] LABS: Bedside Glucose 136 mg/dL (74-106)
[2024-10-21 07:45] VITALS: BP 162/85; PULSE 88; RESP 18; TEMP 36.3; O2SAT 100
[2024-10-21] MEDS: Aspirin 81 MG TAB.CHEW PO (07:52)
[2024-10-21] MEDS: metFORMIN HCl 500 MG Tablet PO (07:54)
[2024-10-21 11:30] LABS: Bedside Glucose 140 mg/dL (74-106)
--- NOTE | 2024-10-21 13:38 | CASEMGMT ---
Addendum entered by Vicky Lyles 10/21/24 16:41: ADRYAN collaborated with providers regarding LTC [employer]. ADRYAN requested [facility] begin LTC EDUARDO application. THEA Mott Addendum entered by Vicky Lyles 10/21/24 15:13: [facility] is reporting the following: The business office did talk to Sade for clarification on the policy and the LTC is for skilled services and does not include room & board. She will need precert from [facility]. ADRYAN notified [facility] of [facility] report. ADRYAN coordinated with PHILIP. THEA Mott Addendum entered by Vicky Lyles 10/21/24 15:01: ADRYAN received a call from Sade who states that she spoke with [facility] and confirmed that pt does have a LTC plan. Sade reports that 100 days are covered then there is additional co-pays. Sade was unable to share any additional information on plan. ADRYAN collaborated with PHILIP who reached out to [facility]. ADRYAN also collaborated with [facility]. ADRYAN remains available to follow. THEA Mott Original Note: Social Work- ADRYAN met with pt to check-in and discuss discharge planning. Pt remains confused and unable to speak in a linear,insightful manner regarding topics. Pt pleasant and cooperative in demeanor. Pt presented with full affect. Pt was observed to have frequent speech pause distribution in dialogue and disorganized speech patterns. Pt supervisory aide, Corinne, present in room. Corinne expressed to ADRYAN that based on her work with pt at this time, she feels pt needs more care than what she has been receiving at home. ADRYAN discussed plan to look into [facility] for LTC; pt expressed agreement with discharge plan to [facility], although reported that she does not feel she needs LTC. ADRYAN called pt dtr Sade to discuss discharge planning. Sade reports that she spoke with [facility] yesterday and was aware of the Human LTC coverage. Sade reports that she will call insurance and attempt to verify benefits, but reports that she asked [facility] to also verify. Sade is agreeable to TCC bed until it is determined if memory care is more appropriate and has an opening. PHILIP notified that [facility] can procedd with referral for TCC bed and requested LTC verification. ADRYAN remains available to follow. THEA Mott
--- NOTE | 2024-10-21 14:13 | CASEMGMT ---
Discharge Planning Referral sent to [facility]. Benefit verification sent to show skilled nursing coverage. Sujata Toth DC Planning Asst.
[2024-10-21 14:22] VITALS: BP 142/96; PULSE 82; RESP 16; TEMP 37.1; O2SAT 96
--- NOTE | 2024-10-21 17:11 | PN.HOSP_ITS ---
Reason for Visit Reason for Visit: Diagnoses Weakness (10/19/24) Subjective Subjective Patient was seen and examined today, she does not appear to be agitated. Objective Data Objective Data Vital Signs: Vital Signs Temp Pulse Resp BP Pulse Ox O2 Del Method 98.8 F 82 16 142/96 H 96 Room Air 10/21/24 14:22 10/21/24 14:22 10/21/24 14:22 10/21/24 14:22 10/21/24 14:22 10/21/24 14:22 Oxygen Delivery Method Room Air Weight: 64.7 kg Body Mass Index (BMI) 27.8 Intake & Output: Intake and Output for Last 24 Hours 10/19/24 10/20/24 10/21/24 23:59 23:59 23:59 Intake Total 500 / 500 1200 / 1200 1000 / 1000 Balance 500 / 500 1200 / 1200 1000 / 1000 Lab / Micro Data 10/20/24 04:41 10/20/24 04:41 Labs: Laboratory Results - last 24 hr 10/20/24 22:14: POC Glucose 136 H 10/21/24 06:04: POC Glucose 136 H 10/21/24 11:13: POC Glucose 140 H Physical Exam Narrative alert and no apparent distress Constitutional Narrative: Patient is confused but she is not agitated General Appearance: cooperative, well kempt and well developed Orientation / Consciousness: awake and oriented to person HEENT normocephalic, head/scalp atraumatic and moist oral mucous membranes Eyes PERRL, EOMs intact bilaterally and conjunctivae normal Neck supple, no JVD, thyroid normal and no carotid bruits General: trachea midline Resp normal respiratory effort, no retractions, no use of accessory muscles and clear to auscultation bilaterally Auscultation: Negative for rales, rhonchi or wheezes Cardio regular rate, regular rhythm, no murmurs, no rub and no gallops GI normal to inspection, nondistended, normoactive bowel sounds, soft to palpation, non-tender and non-distended Extremity no clubbing, cyanosis or edema Skin no rashes or lesions noted General Skin Exam: no breakdown Neuro CN's II-XII intact bilaterally, no focal motor deficits and no sensory deficits noted Neuro Narrative: Patient is confused, she is not agitated Sensorium / Orientation: awake, alert and oriented to person Speech: speech normal Psych Psych Narrative: Patient is confused, she is not agitated Assessment & Plan Assessment/Plan (1) Dementia without behavioral disturbance: (2) Generalized weakness: PLAN: Plan 1. Acute on chronic debility-secondary to multiple medical problems including dementia and type 2 diabetes with neuropathy-PT and OT will continue to work with the patient, she will need placement in a fdc facility. I talked at length with the patient's daughter by phone tonight-she is in [place]- I feel that the patient does have dementia. Patient's CODE STATUS will be a DNR CC arrest no intubation. The daughter who is her POA and I came to the agreement that it would not be in the patient's best interest to start her on medication for Alzheimer's disease. Patient also had an adverse effect from being on Seroquel previously-she became very lethargic on this medication. #2 type 2 diabetes-patient is on sliding scale insulin, I placed her back on metformin #3 essential hypertension-patient is not on losartan at this time, I will observe her blood pressure off this medication-she may not need this medication. #4 dementia without behavioral disturbances-complicates care, management, recovery, and prognosis Total clinical time spent by myself addressing the patient's medical issues, reviewing all of her data, and collaborating with patient's care team: 35 minutes Charges/Coding Visit Charges Inpatient E&M: 86318 Subs Hosp L2
[2024-10-21 20:20] VITALS: BP 177/87; PULSE 77; RESP 18; TEMP 36.4; O2SAT 99
[2024-10-21] MEDS: Nortriptyline 25 MG Capsule 150 MG PO (22:06)
[2024-10-22 05:17] VITALS: BP 131/79; PULSE 72; RESP 16; TEMP 36.1; O2SAT 98
--- NOTE | 2024-10-22 08:17 | CASEMGMT ---
Discharge Planning [facility] has accepted. SW updated. Sujata Toth DC Planning Asst.
[2024-10-22 08:28] VITALS: BP 145/77; PULSE 75; RESP 18; TEMP 37.1; O2SAT 100
[2024-10-22] MEDS: Aspirin 81 MG TAB.CHEW PO (08:32)
[2024-10-22] MEDS: metFORMIN HCl 500 MG Tablet PO (08:33)
--- NOTE | 2024-10-22 09:01 | CASEMGMT ---
Discharge Planning Updates sent to [facility] with request to submit for precert. Unit phone number given in event precert rec'd over the weekend. Benefit verification was sent to [facility] indicating that pts policy has ltc coverage. Per Kristin @ [facility], when she tried to verify coverage, she was told that she needed additional numbers that she didn't have access to. 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 This information was relayed to the . Sujata Toth DC Planning Asst.
[2024-10-22 09:30] VITALS: PULSE 70
--- NOTE | 2024-10-22 10:30 | CASEMGMT ---
Addendum entered by Vicky Lyles 10/22/24 16:20: ADRYAN spoke with Sade to coordinate following Sade discussion with [facility]. Pt has $137k to spend down prior to being eligible for EDUARDO. Sade expressed understanding of need for private pay if precert denied. Sade reports that she and sister will be here Friday. ADRYAN remains available to follow. THEA Mott Original Note: Social Work- ADRYAN spoke with pt dtr, Sade, who reports that she did speak with [facility] yesterday to discuss LTC policy. [facility] reports that LTC is actually a skilled service plan, not LTC. [facility] to submit for precert. Sade cautioned that it is likely due to pt ambulation distances that precert may be denied and LTC EDUARDO will still be necessary. [facility] to follow up with pt dtr to discuss LTC EDUARDO. ADRYAN and Sade discussed potential discharge timelines and scenarios. Sade requests transport be set up and private aide will meet pt at [facility] if possible. ADRYAN remains available to follow. Plan: [facility]; pend precert THEA Mott
[2024-10-22 11:20] LABS: Bedside Glucose 145 mg/dL (74-106)
[2024-10-22 14:57] VITALS: BP 120/76; PULSE 73; RESP 18; TEMP 36.8; O2SAT 99
--- NOTE | 2024-10-22 16:01 | CASEMGMT ---
Social Work - SNF/LTC insurance benefits Collaboration with Vicky SIDHU regarding patient's discharge planning and barriers with insurance: possible group home care benefits with [employer], with [facility] indicating patient has skilled benefits, and the daughter calling to get benefits but uncertain which benefit the daughter received. This keno writer/runner and Vicky agreed a call to [facility] directly will clear up any confusion, and questions the daughter may have. Called [facility]iah at . Spoke with Tavares - Reference ID for call #[id number] [employer] plan is a MCR PPO, effective 04.28.2019 with no end date - this plan is still active [employer] MCR is primary and no other insurance in place Renews by calendar year SNF benefit: Days 1-20, 10 dollar a day copay Days 21-100, 214 dollar a day copay Copays apply to max OOP of 5, 250 per year, there is no deductible 1062.11 dollars have been applied towards max OOP. Once max OOP is met, all copays are waived and SNF is covered at 100% up to the 100 days. LTC benefit: buttermaker helper care benefits are only available/active for members who have medicaid (so dual eligible [employer] MCR/EDUARDO) This patient does NOT have EDUARDO, ONLY MCR through [employer] Patient has NO group home care benefits with [employer]. If patient is not approved for skilled care under [employer], then options would be Medicaid pending if resources are limited or private pay if there are resources to spend down. Handoff provided via secure Backline messaging to Vicky SIDHU. Plan: SW remains actively involved in working out a discharge plan - looking at [facility], skilled LOC if approved by insurance - Refer to prior SW notes for details of discharge planning. -COSMO Batista
--- NOTE | 2024-10-22 17:19 | CASEMGMT ---
Social Work- In case of possible weekend discharge, green sheet, transport, HENS on chart for nursing to follow for final discharge arrangements/notifications to SNF, patient/family.? Plan: THEA Myles
--- NOTE | 2024-10-22 19:44 | PCM.PN.HOSP ---
Reason for Visit Reason for Visit: Diagnoses Unspecified dementia, unspecified severity, without behavioral disturbance, psychotic disturbance, mood disturbance, and anxiety (10/19/24) Weakness (10/19/24) Subjective Subjective Patient was seen and examined today, she states she wants to be discharged home, the daughter was contacted and she is the POA for the patient and she still wants the patient to go to an extended care facility. It may be necessary for the patient to go under intermediate care, family is aware of this. Objective Data Objective Data Vital Signs: Vital Signs Temp Pulse Resp BP Pulse Ox O2 Del Method 98.2 F 73 18 120/76 99 Room Air 10/22/24 14:57 10/22/24 14:57 10/22/24 14:57 10/22/24 14:57 10/22/24 14:57 10/22/24 14:57 Oxygen Delivery Method Room Air Weight: 64.7 kg Body Mass Index (BMI) 27.8 Intake & Output: Intake and Output for Last 24 Hours 10/20/24 10/21/24 10/22/24 23:59 23:59 23:59 Intake Total 1200 / 1200 1000 / 1000 Balance 1200 / 1200 1000 / 1000 Lab / Micro Data 10/20/24 04:41 10/20/24 04:41 Labs: Laboratory Results - last 24 hr 10/22/24 11:02: POC Glucose 145 H Physical Exam Narrative alert and no apparent distress Constitutional Narrative: Patient is confused but she is not agitated General Appearance: cooperative, well kempt and well developed Orientation / Consciousness: awake and oriented to person HEENT normocephalic, head/scalp atraumatic and moist oral mucous membranes Eyes PERRL, EOMs intact bilaterally and conjunctivae normal Neck supple, no JVD, thyroid normal and no carotid bruits General: trachea midline Resp normal respiratory effort, no retractions, no use of accessory muscles and clear to auscultation bilaterally Auscultation: Negative for rales, rhonchi or wheezes Cardio regular rate, regular rhythm, no murmurs, no rub and no gallops GI normal to inspection, nondistended, normoactive bowel sounds, soft to palpation, non-tender and non-distended Extremity no clubbing, cyanosis or edema Skin no rashes or lesions noted General Skin Exam: no breakdown Neuro CN's II-XII intact bilaterally, no focal motor deficits and no sensory deficits noted Neuro Narrative: Patient is confused, she is not agitated Sensorium / Orientation: awake, alert and oriented to person Speech: speech normal Psych Psych Narrative: Patient is confused, she is not agitated Assessment & Plan Assessment/Plan (1) Dementia without behavioral disturbance: (2) Generalized weakness: PLAN: Plan 1. Acute on chronic debility-secondary to multiple medical problems including dementia and type 2 diabetes with neuropathy-PT and OT will continue to work with the patient, again it may be necessary for the patient to go to a long-term facility under intermediate care. #2 type 2 diabetes-patient is on sliding scale insulin, he is on metformin #3 essential hypertension-patient is not on losartan at this time, I will observe her blood pressure off this medication-she may not need this medication. #4 dementia without behavioral disturbances-complicates care, management, recovery, and prognosis Total clinical time spent by myself addressing the patient's medical issues, reviewing all of her data, and collaborating with patient's care team: 35 minutes Charges/Coding Visit Charges Inpatient E&M: [id number] Subs Hosp L2
[2024-10-22 20:50] VITALS: BP 127/89; PULSE 89; RESP 18; TEMP 36.6; O2SAT 98
[2024-10-22] MEDS: Nortriptyline 25 MG Capsule 150 MG PO (21:06)
[2024-10-22 21:27] LABS: Bedside Glucose 106 mg/dL (74-106)
[2024-10-23 02:00] VITALS: BP 138/64; PULSE 72; RESP 16; TEMP 36.6; O2SAT 96
--- NOTE | 2024-10-23 09:20 | CASEMGMT ---
Social Work SW sent a message in [facility] reminding [facility] to call [phone] should they hear back today on pt's precert. PIPER Santana
[2024-10-23 10:31] VITALS: BP 112/81; PULSE 98; RESP 18; TEMP 36.3; O2SAT 98
[2024-10-23] MEDS: Aspirin 81 MG TAB.CHEW PO (10:32)
[2024-10-23] MEDS: metFORMIN HCl 500 MG Tablet PO (10:33)
--- NOTE | 2024-10-23 14:21 | PCM.PN.HOSP ---
Reason for Visit Reason for Visit: Diagnoses Unspecified dementia, unspecified severity, without behavioral disturbance, psychotic disturbance, mood disturbance, and anxiety (10/19/24) Weakness (10/19/24) Subjective Subjective Patient was seen and examined today, she remains confused, she thought I was the substation maintenance technician for the hospital when I came in her room. We are currently awaiting notification on the pre-CERT request for admission to the skilled facility, again because of the weekend we will not hear anything from the facility until Friday. Objective Data Objective Data Vital Signs: Vital Signs Temp Pulse Resp BP Pulse Ox O2 Del Method 97.3 F L 98 18 112/81 H 98 Room Air 10/23/24 10:31 10/23/24 10:31 10/23/24 10:31 10/23/24 10:31 10/23/24 10:31 10/23/24 10:31 Oxygen Delivery Method Room Air Weight: 64.7 kg Body Mass Index (BMI) 27.8 Intake & Output: Intake and Output for Last 24 Hours 10/21/24 10/22/24 10/23/24 23:59 23:59 23:59 Intake Total 1000 / 1000 Balance 1000 / 1000 Lab / Micro Data 10/20/24 04:41 10/20/24 04:41 Labs: Laboratory Results - last 24 hr 10/22/24 16:41: POC Glucose 106 Physical Exam Narrative alert and no apparent distress Constitutional Narrative: Patient is confused but she is not agitated General Appearance: cooperative, well kempt and well developed Orientation / Consciousness: awake and oriented to person HEENT normocephalic, head/scalp atraumatic and moist oral mucous membranes Eyes PERRL, EOMs intact bilaterally and conjunctivae normal Neck supple, no JVD, thyroid normal and no carotid bruits General: trachea midline Resp normal respiratory effort, no retractions, no use of accessory muscles and clear to auscultation bilaterally Auscultation: Negative for rales, rhonchi or wheezes Cardio regular rate, regular rhythm, no murmurs, no rub and no gallops GI normal to inspection, nondistended, normoactive bowel sounds, soft to palpation, non-tender and non-distended Extremity no clubbing, cyanosis or edema Skin no rashes or lesions noted General Skin Exam: no breakdown Neuro CN's II-XII intact bilaterally, no focal motor deficits and no sensory deficits noted Neuro Narrative: Patient is confused, she is not agitated Sensorium / Orientation: awake, alert and oriented to person Speech: speech normal Psych Psych Narrative: Patient is confused, she is not agitated Assessment & Plan Assessment/Plan (1) Dementia without behavioral disturbance: (2) Generalized weakness: PLAN: Plan 1. Acute on chronic debility-secondary to multiple medical problems including dementia and type 2 diabetes with neuropathy-PT and OT will continue to work with the patient, again it may be necessary for the patient to go to a assisted facility under intermediate care. #2 type 2 diabetes-patient is on sliding scale insulin, he is on metformin #3 essential hypertension-patient is not on losartan at this time, I will observe her blood pressure off this medication-she may not need this medication. #4 dementia without behavioral disturbances-complicates care, management, recovery, and prognosis Total clinical time spent by myself addressing the patient's medical issues, reviewing all of her data, and collaborating with patient's care team: 25 minutes Charges/Coding Visit Charges Inpatient E&M: [id number] [facility] Hosp L1
[2024-10-23 16:31] VITALS: BP 126/79; PULSE 62; RESP 16; TEMP 36.5; O2SAT 95
[2024-10-23 20:37] VITALS: BP 113/69; PULSE 74; RESP 16; TEMP 36.7; O2SAT 97
[2024-10-23] MEDS: Nortriptyline 25 MG Capsule 150 MG PO (20:45)
[2024-10-23 21:07] LABS: Bedside Glucose 146 mg/dL (74-106)
[2024-10-24 06:02] VITALS: BP 124/71; PULSE 80; RESP 16; TEMP 36.6; O2SAT 98
[2024-10-24] MEDS: Acetaminophen 325 MG Tablet 650 MG PO (06:03)
[2024-10-24] MEDS: Aspirin 81 MG TAB.CHEW PO (07:53)
[2024-10-24] MEDS: metFORMIN HCl 500 MG Tablet PO (07:53)
[2024-10-24 11:50] VITALS: BP 118/59; PULSE 75; RESP 18; TEMP 36.8; O2SAT 98
[2024-10-24 14:32] VITALS: BP 121/65; PULSE 76; RESP 19; TEMP 36.8; O2SAT 98
--- NOTE | 2024-10-24 15:43 | NURSING ---
Two Daughters here visiting pt. Wanted to take her outside via WC and get some fresh air. Daughter signed her out to go outside and both daughters will be with her.
[2024-10-24 16:23] LABS: Bedside Glucose 109 mg/dL (74-106)
--- NOTE | 2024-10-24 16:40 | PN.HOSP_ITS ---
Reason for Visit Reason for Visit: Diagnoses Unspecified dementia, unspecified severity, without behavioral disturbance, psychotic disturbance, mood disturbance, and anxiety (10/19/24) Weakness (10/19/24) Subjective Subjective Patient seen and examined today, she remains confused but not agitated. She does not appear in any distress. Objective Data Objective Data Vital Signs: Vital Signs Temp Pulse Resp BP Pulse Ox O2 Del Method 98.3 F 76 19 H 121/65 H 98 Room Air 10/24/24 14:32 10/24/24 14:32 10/24/24 14:32 10/24/24 14:32 10/24/24 14:32 10/24/24 14:32 Oxygen Delivery Method Room Air Weight: 64.7 kg Body Mass Index (BMI) 27.8 Lab / Micro Data 10/20/24 04:41 10/20/24 04:41 Labs: Laboratory Results - last 24 hr 10/23/24 20:43: POC Glucose 146 H 10/24/24 11:48: POC Glucose 109 H Physical Exam Narrative alert and no apparent distress Constitutional Narrative: Patient is confused but she is not agitated General Appearance: cooperative, well kempt and well developed Orientation / Consciousness: awake and oriented to person HEENT normocephalic, head/scalp atraumatic and moist oral mucous membranes Eyes PERRL, EOMs intact bilaterally and conjunctivae normal Neck supple, no JVD, thyroid normal and no carotid bruits General: trachea midline Resp normal respiratory effort, no retractions, no use of accessory muscles and clear to auscultation bilaterally Auscultation: Negative for rales, rhonchi or wheezes Cardio regular rate, regular rhythm, no murmurs, no rub and no gallops GI normal to inspection, nondistended, normoactive bowel sounds, soft to palpation, non-tender and non-distended Extremity no clubbing, cyanosis or edema Skin no rashes or lesions noted General Skin Exam: no breakdown Neuro CN's II-XII intact bilaterally, no focal motor deficits and no sensory deficits noted Neuro Narrative: Patient is confused, she is not agitated Sensorium / Orientation: awake, alert and oriented to person Speech: speech normal Psych Psych Narrative: Patient is confused, she is not agitated Assessment & Plan Assessment/Plan (1) Dementia without behavioral disturbance: (2) Generalized weakness: PLAN: Plan 1. Acute on chronic debility-secondary to multiple medical problems including dementia and type 2 diabetes with neuropathy-PT and OT will continue to work with the patient, again it may be necessary for the patient to go to a longterm facility under intermediate care. #2 type 2 diabetes-patient is on sliding scale insulin, she is on metformin #3 essential hypertension-patient is not on losartan at this time, I will add a small dose of losartan to her medications for proteinuria from her diabetes. #4 dementia without behavioral disturbances-complicates care, management, recovery, and prognosis Total clinical time spent by myself addressing the patient's medical issues, reviewing all of her data, and collaborating with patient's care team: 25 minutes Charges/Coding Visit Charges Inpatient E&M: 93956 Subs Hosp L2
[2024-10-24] MEDS: Insulin Lispro 100 UNIT/ML INSULN.PEN SC (17:50)
[2024-10-24 18:09] LABS: Bedside Glucose 160 mg/dL (74-106)
[2024-10-24 20:26] VITALS: BP 133/78; PULSE 77; RESP 17; TEMP 36.6; O2SAT 98
[2024-10-24] MEDS: Nortriptyline 25 MG Capsule 150 MG PO (20:27)
[2024-10-25 06:30] VITALS: BP 138/77; PULSE 81; RESP 16; TEMP 36.8; O2SAT 99
[2024-10-25 09:19] VITALS: BP 126/62; PULSE 89; RESP 18; TEMP 36.6; O2SAT 97
[2024-10-25] MEDS: Losartan Potassium 25 MG Tablet PO (09:24)
[2024-10-25] MEDS: metFORMIN HCl 500 MG Tablet PO (09:25)
[2024-10-25] MEDS: Aspirin 81 MG TAB.CHEW PO (09:25)
--- NOTE | 2024-10-25 13:08 | CASEMGMT ---
Social Work- ADRYAN received notice that precert was denied by insurance. ADRYAN spoke with pt dtr who would like the dr to consider [id number]. ADRYAN notified physician, who feels that, and has consistently documented that, pt is appropriate for intermediate level of care due to dementia. SW updated pt dtrs who are understanding and agreeable to private pay. ADRYAN updated pt and pt dtrs on plans to d/c to [facility] today, as physician feels that pt is medically ready for discharge. Pt and pt dtrs agreeable. DCA notified. ADRYAN remains available to follow. THEA Mott
--- NOTE | 2024-10-25 13:17 | PCM.TXEXTCAR ---
Diet Diet Order/Speech Therapy: INPATIENT Hospital Diet / Speech Therapy Order(s) 10/19/24 21:13 Diet: Regular - General Food consistency:: Regular Liquid Consistency:: Regular/Thin Dietary Modifications:: Consistent Carbohydrate Routine Orders/Code Status Code Status: DNRCC-A (No intubation) DC O2, CPAP, BIPAP needs Home O2 Discharge instructions: No Therapies Weight Bearing: Full weight bearing Problem/Diagnosis (1) Dementia without behavioral disturbance: Status: Acute Code(s): F03.90 - Unspecified dementia, unspecified severity, without behavioral disturbance, psychotic disturbance, mood disturbance, and anxiety (2) Generalized weakness: Status: Acute Code(s): R53.1 - Weakness Plan 1. Acute on chronic debility-secondary to multiple medical problems including dementia and type 2 diabetes with neuropathy-PT and OT will continue to work with the patient, again it may be necessary for the patient to go to a halfway facility under intermediate care. #2 type 2 diabetes-patient is on sliding scale insulin, she is on metformin #3 essential hypertension-patient is not on losartan at this time, I will add a small dose of losartan to her medications for proteinuria from her diabetes. #4 dementia without behavioral disturbances-complicates care, management, recovery, and prognosis Total clinical time spent by myself addressing the patient's medical issues, reviewing all of her data, and collaborating with patient's care team: 25 minutes Allergies/Procedures Done in Hospital Allergies codeine Adverse Reaction (Verified 09/08/24 22:11) Nausea fluoxetine HCl (From Prozac) Adverse Reaction (Verified 09/08/24 22:11) shivers morphine Adverse Reaction (Verified 09/08/24 22:11) Nausea Procedures: None Type of Care/Length of Stay Estimated LOS: More Than 30 Days Type of Care Needed: Intermediate Rehab Potential: Fair Prognosis: Fair Additional Orders/Day of Discharge H&P will serve as current which was dated: 10/19/24 Day of Discharge: 10/25/24 Discharge Plan Admission Admit Date/Time: 10/19/24 18:41 Primary Reason for Your Visit: General debility secondary to dementia Attending Provider: Fitz Vázquez Primary Care Provider: Radha Chang Consulting Providers: Desiree Awan Discharge Orders/Prescriptions Prescriptions: New acetaminophen 325 mg Tablet 650 mg PO Q6H PRN PRN (Reason: Pain 1-10 Or Fever >100.7) Qty: 0 0RF ibuprofen 600 mg Tablet 600 mg PO Q6H PRN PRN (Reason: Pain Score 1-10) Qty: 0 0RF Continued aspirin 81 mg Tablet 81 mg PO DAILY letrozole 2.5 mg tablet 2.5 mg PO DAILY nortriptyline 50 mg capsule 150 mg PO QHS meclizine [Antivert] 25 mg tablet,chewable 25 mg PO TID PRN (Reason: dizziness) Qty: 10 0RF Patient Comments: Per daughter, takes as needed. Rx Instructions: Use if having dizziness. losartan 25 mg tablet 25 mg PO DAILY Changed metformin 500 mg tablet 500 mg PO BID Qty: 1 0RF Discontinued cefdinir 300 mg capsule 300 mg PO BID Qty: 6 0RF Referrals / Follow Up: Radha Chang MD [Primary Care Provider] - Disposition Disposition (needs filled in before D/C Order can be placed): [facility]
--- NOTE | 2024-10-25 13:27 | DS.PCM_ITS ---
Providers Date of Admission: 10/19/24 Primary Care Physician: Dr. Radha Chang MD Reason For Visit: FALL GENERAL WEAKNESS Diagnosis Discharge Diagnosis (1) Dementia without behavioral disturbance: Status: Acute Code(s): F03.90 - Unspecified dementia, unspecified severity, without behavioral disturbance, psychotic disturbance, mood disturbance, and anxiety (2) Generalized weakness: Status: Acute Code(s): R53.1 - Weakness Plan 1. Acute on chronic debility-secondary to multiple medical problems including dementia and type 2 diabetes with neuropathy-PT and OT will continue to work with the patient, again it may be necessary for the patient to go to a [facility] facility under intermediate care. #2 type 2 diabetes-patient is on sliding scale insulin, she is on metformin #3 essential hypertension-patient is not on losartan at this time, I will add a small dose of losartan to her medications for proteinuria from her diabetes. #4 dementia without behavioral disturbances-complicates care, management, recovery, and prognosis Total clinical time spent by myself addressing the patient's medical issues, reviewing all of her data, and collaborating with patient's care team: 25 minutes Medications at Discharge Home Medications aspirin 81 mg tablet 81 mg PO DAILY heart health 02/02/21 letrozole 2.5 mg tablet 2.5 mg PO DAILY 08/25/24 nortriptyline 50 mg capsule 150 mg PO QHS 08/25/24 meclizine 25 mg chewable tablet (Antivert) 25 mg PO TID PRN dizziness #10 tabs 09/09/24 losartan 25 mg tablet 25 mg PO DAILY 10/10/24 acetaminophen 325 mg tablet 650 mg (2 x 325 mg) PO Q6H PRN PRN Pain 1-10 Or Fever >100.7 #0 tabs 10/25/24 ibuprofen 600 mg tablet 600 mg PO Q6H PRN PRN Pain Score 1-10 #0 tabs 10/25/24 metformin 500 mg tablet 500 mg PO BID diabetes mellitus #1 TAB 10/25/24 Hospital Course Operations None Procedures None Summary of Care Provided Minutes Spent on Discharge: 31 Hospital Course: This 79-year-old white female was seen in the emergency room at [facility] after being brought in by squad from home. The daughter of the patient called for a while-the daughter lives in [place], the patient lives alone and intermittently ambulates with a cane or walker if needed. 1 daughter lives in [place] and 1 lives in the [facility], patient stated that she was on the ground and had a hard time getting up without assistance. She stated she was only on the ground for about an hour, daughter called EMS for a well check and she was found on the ground in her home, the patient was confused. Patient denied any pain. Labs were performed, WBC was normal, hemoglobin was normal, chemistry profile was unremarkable, urinalysis was unremarkable. Chest x-ray showed no acute abnormality, brain CT showed no changes compared with prior exam and no acute abnormality. Patient was placed in observation status on [facility], she was seen by PT and OT, she remained confused during her hospitalization but was not aggressive or belligerent. It was the daughters wish that the patient go to an extended care facility, her insurance denied this and arranges were made for the patient to go to the facility under intermediate care. On 10/25/2024, patient was seen and examined:alert and no apparent distress Constitutional Narrative: Patient is confused but she is not agitated General Appearance: cooperative, well kempt and well developed Orientation / Consciousness: awake and oriented to person HEENT normocephalic, head/scalp atraumatic and moist oral mucous membranes Eyes PERRL, EOMs intact bilaterally and conjunctivae normal Neck supple, no JVD, thyroid normal and no carotid bruits General: trachea midline Resp normal respiratory effort, no retractions, no use of accessory muscles and clear to auscultation bilaterally Auscultation: Negative for rales, rhonchi or wheezes Cardio regular rate, regular rhythm, no murmurs, no rub and no gallops GI normal to inspection, nondistended, normoactive bowel sounds, soft to palpation, non-tender and non-distended Extremity no clubbing, cyanosis or edema Skin no rashes or lesions noted General Skin Exam: no breakdown Neuro CN's II-XII intact bilaterally, no focal motor deficits and no sensory deficits noted Neuro Narrative: Patient is confused, she is not agitated Sensorium / Orientation: awake, alert and oriented to person Speech: speech normal Psych Psych Narrative: Patient is confused, she is not agitated Patient was discharged to [facility] in [facility] on 10/25/2024 in stable condition Weight / BMI Weight Weight: 64.7 kg Body Mass Index (BMI) 27.8 ABG / Lab / Microbiology Data 10/20/24 04:41 10/20/24 04:41 Laboratory: Laboratory Results - last 24 hr 10/24/24 11:48: POC Glucose 109 H 10/24/24 17:42: POC Glucose 160 H D/C Instructions DC O2, CPAP, BIPAP Needs Home O2 Discharge instructions: No Meaningful Use Info Meaningful Use Meaningful Use Diagnoses (Choose all that apply): None applicable Ischemic Stroke Statin Dosing Therapy Reference: STATIN DOSE THERAPY REFERENCE: * Patients > 75 years receive moderate or high dose statin therapy. * Patients 75 years or YOUNGER should receive HIGH intensity statin dose unless contraindicated. You will be required to document reason for non-treatment if statin daily dose does not meet guidelines. HIGH DOSE STATIN THERAPY DAILY Atorvastatin > than or = to 40 mg Rosuvastatin > than or = to 20 mg Amlodipine + Atorvastatin > than or = to 2.5/40 mg Ezetimibe + Simvastatin 10/80 mg Simvastatin 80mg Discharge Plan Admission Admit Date/Time: 10/19/24 18:41 Primary Reason for Your Visit: General debility secondary to dementia Attending Provider: Fitz Vázquez Primary Care Provider: Radha Chang Consulting Providers: Desiree Awan Discharge Orders/Prescriptions Prescriptions: New acetaminophen 325 mg Tablet 650 mg PO Q6H PRN PRN (Reason: Pain 1-10 Or Fever >100.7) Qty: 0 0RF ibuprofen 600 mg Tablet 600 mg PO Q6H PRN PRN (Reason: Pain Score 1-10) Qty: 0 0RF Continued aspirin 81 mg Tablet 81 mg PO DAILY letrozole 2.5 mg tablet 2.5 mg PO DAILY nortriptyline 50 mg capsule 150 mg PO QHS meclizine [Antivert] 25 mg tablet,chewable 25 mg PO TID PRN (Reason: dizziness) Qty: 10 0RF Patient Comments: Per daughter, takes as needed. Rx Instructions: Use if having dizziness. losartan 25 mg tablet 25 mg PO DAILY Changed metformin 500 mg tablet 500 mg PO BID Qty: 1 0RF Discontinued cefdinir 300 mg capsule 300 mg PO BID Qty: 6 0RF Referrals / Follow Up: Radha Chang MD [Primary Care Provider] - Disposition Disposition (needs filled in before D/C Order can be placed): Long-Term Facility Charges/Coding Visit Charges Inpatient E&M: 99716 Disch Hosp >30min
--- NOTE | 2024-10-25 13:34 | PHA.DC.MR.R ---
Pharmacy [place] Med Reconciliation Pharmacy Service has performed discharge medication reconciliation for this patient. The patient's discharge medication list was reviewed for discrepancies and discrepancies were resolved. Medications at Discharge Home Medications aspirin 81 mg tablet 81 mg PO DAILY heart health 02/02/21 letrozole 2.5 mg tablet 2.5 mg PO DAILY 08/25/24 nortriptyline 50 mg capsule 150 mg PO QHS 08/25/24 meclizine 25 mg chewable tablet (Antivert) 25 mg PO TID PRN dizziness #10 tabs 09/09/24 losartan 25 mg tablet 25 mg PO DAILY 10/10/24 acetaminophen 325 mg tablet 650 mg (2 x 325 mg) PO Q6H PRN PRN Pain 1-10 Or Fever >100.7 #0 tabs 10/25/24 ibuprofen 600 mg tablet 600 mg PO Q6H PRN PRN Pain Score 1-10 #0 tabs 10/25/24 metformin 500 mg tablet 500 mg PO BID diabetes mellitus #1 TAB 10/25/24
--- NOTE | 2024-10-25 13:41 | CASEMGMT ---
Social Work Physician feel that pt is ready for discharge today.? HENS completed. SW met with pt & pt daughters and they are agreeable to discharge plan as stated above.? DCA and bedside nurse notified of discharge. Final arrangements and notifications to be completed by DCA. Disposition: [facility], intermediate level of care THEA Mott
--- NOTE | 2024-10-25 13:57 | CASEMGMT ---
Discharge Planning Discharge orders, signed med list, and transport time sent to [facility]. Physicians will transport pt by wheelchair at 3:30p. Nursing, SW, and pts daughter (Sade) updated. Sujata Toth DC Planning Asst
[2024-10-25 14:22] VITALS: BP 128/60; PULSE 75; RESP 18; TEMP 36.5; O2SAT 98
--- NOTE | 2024-10-25 14:32 | NURSING ---
Report called to Shelly at [facility] [phone]
== END 2024-10-25 15:30 | disposition intermediate care facility (04) ==
LOC: ED 13:51 → MS3 22:05
PROVIDERS: Admitting Provider Internal Medicine; Emergency Provider Emergency Medicine; PCP Internal Medicine; Visit Provider Internal Medicine
DX: E11.42 Type 2 diabetes mellitus with diabetic polyneuropathy (principal); F02.80 Dementia in other diseases classified elsewhere, unspecified severity, without behavioral disturbance, psychotic disturbance, mood disturbance, and anxiety; R53.1 Weakness; R06.02 Shortness of breath; E78.5 Hyperlipidemia, unspecified; I10 Essential (primary) hypertension; I44.0 Atrioventricular block, first degree; Z79.811 Long term (current) use of aromatase inhibitors; Z91.81 History of falling; K21.9 Gastro-esophageal reflux disease without esophagitis; Z79.899 Other long term (current) drug therapy; Z79.84 Long term (current) use of oral hypoglycemic drugs; Z79.82 Long term (current) use of aspirin
CPT/HCPCS: 36415; 70450; 71046; 80048; 80053; 80307; 81001; 82140; 82550; 82607; 82962; 84443; 85025; 93005; 96360; 96361; 97161; 97166; 97530; 97535; 99221; 99285; G0378

== ENCOUNTER → 2024-11-02 04:00 | Outpatient (REF) | payer MEDICARE, SELFPAY ==
[2024-11-02 06:39] LABS: Hematocrit 43.5 % (37-47); Hemoglobin 14.3 g/dL (12.0-15.0); Immature Granulocytes Count 0.030 X10^3/uL (0.0-0.0); Mean Corp Hgb Conc 32.9 g/dL (32-36); Mean Corpuscular Volume 92.8 fL (81-99); Mean Platelet Vol. 9.1 fl (6.2-12.0); NRBC Flagged by Analyzer 0 % (0-5); Platelet Count 298 K/mm3 (150-450); RBC Distribution Width CV 12.5 % (11.6-14.6); RBC Distribution Width SD 42.8 fl (35.1-43.9); Red Blood Count 4.69 M/mm3 (4.2-5.4); White Blood Count 8.0 K/mm3 (4.4-11.0)
[2024-11-02 06:58] LABS: AST(SGOT) 31 U/L (<=31); Alanine Aminotransfer ALT/SGPT 19 U/L (<=34); Albumin, Serum 3.9 g/dL (3.4-4.8); Alkaline Phosphatase 43 U/L (35-104); Anion Gap 12 (5-15); BUN 18 mg/dL (4-19); BUN/Creat Ratio 18.9 RATIO (10-20); Bilirubin, Direct 0.11 mg/dL (0.00-0.30); Calcium,Total 9.3 mg/dL (7.6-11.0); Carbon Dioxide 23.1 mmol/L (21.0-32.0); Chloride 106 mmol/L (98-108); Globulin 2.5 g/dL (2.2-4.2); Glucose 108 mg/dL (70-99); Potassium 4.3 mmol/L (3.3-5.1)
== END ==
LOC: OLS.WHLTSB 04:00
PROVIDERS: PCP Internal Medicine; Referring Provider Internal Medicine; Visit Provider Internal Medicine
DX: E11.40 Type 2 diabetes mellitus with diabetic neuropathy, unspecified (principal)
CPT/HCPCS: 36415; 80053; 82248; 83036; 85025

== ENCOUNTER → 2024-11-03 13:05 | Outpatient (REF) | payer MEDICARE, SELFPAY | LOC: OLS.WHLTSB 13:05 | PROVIDERS: PCP Internal Medicine; Visit Provider Internal Medicine | DX: N39.0 Urinary tract infection, site not specified (principal) | CPT/HCPCS: 87077; 87086; 87088; 87186 ==

== ENCOUNTER → 2024-11-27 | Outpatient (REF) | payer MEDICARE, SELFPAY ==
[2024-11-27 20:38] LABS: Color, Urine Yellow (Yellow); Glucose, Dipstick Normal (Normal); Ketone-Dipstick Negative (Negative); Leukocyte Esterase-Dipstick 500 /ul (Negative); Nitrite-Dipstick Negative (Negative); Occult Blood-Urine 10 /ul (Negative); Protein-Dipstick 30 mg/dl (Negative); Specific Gravity, Urine 1.020 (1.002-1.030); Urine Bilirubin Dipstick Negative (Negative)
== END ==
LOC: OLS.WHLTSB 16:30
PROVIDERS: Visit Provider Internal Medicine
DX: N39.0 Urinary tract infection, site not specified (principal)
CPT/HCPCS: 81002; 87086; 87088

== ENCOUNTER 2024-12-01 13:20 | Emergency (ER) | payer MEDICARE, SELFPAY ==
[2024-12-01 13:21] VITALS: BP 110/86; PULSE 88; RESP 16; TEMP 36.7; O2SAT 98; BMI 27.3
--- NOTE | 2024-12-01 13:39 | EKG12_ITS ---
Test Reason : Blood Pressure : */* mmHG Vent. Rate : 83 BPM Atrial Rate : 83 BPM P-R Int : 202 ms QRS Dur : 96 ms QT Int : 384 ms P-R-T Axes : 33 -25 43 degrees QTcB Int : 451 ms Normal sinus rhythm Normal ECG Confirmed by RAFAEL TAVERA, GOLDY ([id number]), state editor APURVA CAMEJO ([id number]) on 12/02/2024 9:25:37 AM Referred By: Confirmed By: GOLDY HALL MD
--- NOTE | 2024-12-01 13:39 | CT_ITS ---
PROCEDURE: BRAIN/HEAD WITHOUT CONTRAST 12/01/2024 REASON FOR EXAM: CHANGE IN MENTAL STATUS TECHNIQUE: BRAIN/HEAD WITHOUT CONTRAST Coronal and Sagittal reconstruction series were provided. One or more dose reduction techniques were used (e.g., Automated exposure control, adjustment of the mA and/or kV according to patient size, use of iterative reconstruction technique. RADIATION DOSE SUMMARY: CTDlvol: 47 mGy DLP: 907 mGycm COMPARISON: October 19, 2024 FINDINGS: Brain: Low-density is seen in the periventricular white matter and deep white matter of the frontal and parietal lobes particularly at the anterior horn of the left lateral ventricle. There is also some adjacent encephalomalacia near the watershed with some ex vacuo dilation of the anterior horn. Coil mass is seen near the cavernous sinus along with two aneurysm clips. 1 near the supraclinoid and another more left lateral towards the left MCA distribution. There is no evidence of hemorrhage, acute ischemia or mass. No extra-axial fluid collection, midline shift or mass effect. CSF Spaces: Moderate generalized cerebral atrophy Sinuses/Mastoids: Clear. Frontal sinuses are aplastic. Septal deviation to the left with small spur to the left. Bones: Left frontotemporal craniotomy. CT/Brain/Head without Contrast IMPRESSION: 1. No evidence of intracranial hemorrhage or acute ischemia. 2. Changes of chronic microvascular ischemia and volume loss. 3. Postsurgical changes. Reading Location: [id number]
--- NOTE | 2024-12-01 13:39 | EX.ED.VIS.PS ---
HPI HPI - Psych History of Present Illness Chief Complaint: Mental Health Detail of Chief Complaint: Sent in for psych evaluation and mental health clearance Informant: patient, EMS and SNF Narrative Narrative: Patient presents to the emergency department to be evaluated for mental health clearance. Patient with early onset dementia and currently at [facility]. She apparently keeps leaving the property. Apparently she has a friend that lives across the street in a trailer park. Patient denies falls or recent injury. She denies recent illness. She otherwise denies complaints. She denies auditory visual hallucinations. [facility] Medical History (Updated 12/01/24 @ 14:31 by David Deleon) Gastro-esophageal reflux disease without esophagitis Dysphagia, oropharyngeal phase Primary osteoarthritis, right hand Primary osteoarthritis, left hand Need for assistance with personal care Difficulty in walking, not elsewhere classified Muscle wasting and atrophy, not elsewhere classified, left lower leg Muscle wasting and atrophy, not elsewhere classified, right lower leg Unspecified dementia, unspecified severity, without behavioral disturbance, psychotic disturbance, mood disturbance, and anxiety Fall Generalized weakness Hoarseness History of stress test Anxiety Depression Migraines Orthostatic hypotension Normochromic normocytic anemia Diabetes mellitus type 2 in nonobese Hyponatremia Obstructive hydrocephalus IVH (intraventricular hemorrhage) Infiltrating ductal carcinoma of left breast HTN (hypertension) Brain aneurysm SAH (subarachnoid hemorrhage) Walking difficulty due to ankle and foot Hammer toe of right foot Tibialis posterior tendinopathy Posterior tibial tendinitis of right lower extremity Brain aneurysm GERD (gastroesophageal reflux disease) Osteoarthritis HLD (hyperlipidemia) Anxiety and depression HTN (hypertension) Home Medications ?Medication ?Instructions ?Recorded ?Last Taken ?Type aspirin 81 mg tablet 81 mg PO DAILY heart health 02/02/21 10/09/24 History letrozole 2.5 mg tablet 2.5 mg PO DAILY 08/25/24 10/10/24 History nortriptyline 50 mg capsule 150 mg PO QHS 08/25/24 10/09/24 History meclizine 25 mg chewable tablet 25 mg PO TID PRN dizziness #10 tabs 09/09/24 Unknown Rx (Antivert) losartan 25 mg tablet 25 mg PO DAILY 10/10/24 10/10/24 History acetaminophen 325 mg tablet 650 mg (2 x 325 mg) PO Q6H PRN PRN 10/25/24 Unknown Rx Pain 1-10 Or Fever >100.7 #0 tabs metformin 500 mg tablet 500 mg PO DAILY diabetes mellitus 12/01/24 Unknown History ondansetron 4 mg disintegrating 4 mg PO Q6H 12/01/24 Unknown History tablet Allergy/AdvReac Type Severity Reaction Status Date / Time codeine AdvReac Nausea Verified 12/01/24 13:23 fluoxetine HCl (From Prozac) AdvReac shivers Verified 12/01/24 13:23 morphine AdvReac Nausea Verified 12/01/24 13:23 Family History Mother Breast cancer Hypertension Alzheimers disease Aunt Breast cancer Father CAD (coronary artery disease) Sister Alzheimers disease Other Bleeding disorder Surgical History (Updated 12/01/24 @ 14:31 by David Deleon) Other specified postprocedural states History of appendectomy S/P coil embolization of cerebral aneurysm History of total knee arthroplasty Hx of craniotomy Cataract extraction status H/O laser iridotomy History of hysterectomy S/P breast lumpectomy S/P coil embolization of cerebral aneurysm Social History household members: none Smoking Status: Never smoker alcohol intake: never substance use type: does not use ROS ROS ED Review of Systems ROS Unobtainable: other Constitutional Constitutional ED: Reports lethargy; Denies chills, fever(s), sweats or weight loss Eyes Eyes: Denies blurry vision, change in vision or diplopia ENT ENT ED: Denies rhinorrhea or sore throat Cardiovascular Cardiovascular: Denies chest pain, orthopnea or racing heartbeat Respiratory/Chest Respiratory/Chest: Denies cough, dyspnea, dyspnea on exertion, orthopnea or sputum Gastrointestinal Gastrointestinal: Denies abdominal pain, diarrhea, nausea or vomiting Genitourinary Genitourinary ED: Denies dysuria, hematuria or urinary frequency Musculoskeletal Musculoskeletal: Denies arthralgias, back pain, myalgias or neck pain Integumentary Denies abscess, Abrasions or rash Neurologic Neurologic: Denies headache(s) or weakness Psychiatric Psychiatric: Denies anxiety, depression or suicidal thoughts Endocrine Endocrinology: Denies polydipsia, polyphagia or polyuria Hematologic/Lymphatic Hematologic/Lymphatic: Denies easy bleeding, easy bruising or lymphadenopathy Allergic/Immunologic Allergic/Immunologic ED: Denies mouth swelling, tongue swelling or urticaria EXAM Physical Exam Const Vital Signs: 12/01/24 13:21 12/01/24 14:20 12/01/24 15:00 Temperature 98.1 F Temperature Source Oral Pulse Rate 88 70 77 Respiratory Rate 16 14 14 Blood Pressure 110/86 H 118/70 112/65 Blood Pressure Mean 94 86 80 Pulse Ox 98 99 99 Oxygen Delivery Method Room Air Room Air Room Air 12/01/24 15:33 Temperature 97.9 F Temperature Source Pulse Rate 60 Respiratory Rate 14 Blood Pressure 107/80 Blood Pressure Mean 89 Pulse Ox 100 Oxygen Delivery Method Positive well nourished and well developed General Appearance ED: well developed and NAD HEENT Reports TM's clear and moist mucous membranes normocephalic and atraumatic; Negative for trauma or tenderness Tympanic Membrane ED: Yes TM's clear Eyes PERRL and EOMs intact bilaterally General Eye ED: Negative for pale conjunctiva or scleral icterus Neck no lymphadenopathy, supple and no JVD General: Negative for tenderness Chest Wall inspection of chest normal and palpation of chest normal Chest: Negative for tenderness Resp normal respiratory effort and clear to auscultation bilaterally Effort and Inspection: Negative for respiratory distress or pain with movement Auscultation: Negative for rhonchi, wheezes or diminished lung sounds Cardio regular rate, regular rhythm, S1 normal heart sound, S2 normal heart sound and no murmurs Peripheral Pulses: pulses 2+ throughout GI normal to inspection, nondistended, normoactive bowel sounds, soft to palpation, non-tender, non-distended and no masses Back/Spine no CVA tenderness and no thoracic nor lumbar tenderness Extremity normal to inspection General Extremety ED: Negative for edema General Extremity: Negative for edema Neuro oriented x3, CN's II-XII intact bilaterally, no sensory deficits noted and gait normal Sensorium / Orientation: awake, alert, oriented to person, oriented to place and oriented to time Motor Exam: strength 5/5 throughout and strength abnormal Psych mental status grossly normal Skin no rashes or lesions noted and no wounds MDM MDM MDM Narrative Medical decision making narrative: Patient presents for medical evaluation and clearance due to dementia and flight risk from current facility. Patient will need to be evaluated by hospice social worker and will need to arrange outpatient facility that can handle patient's condition. After hospice social worker discussed case with patient and hospice social worker at assisted it appears they will take her back as long as she is medically cleared given that she was eloped. CBC with differential obtained was unremarkable. Chemistries unremarkable. Alcohol was negative. Talk screen negative. CT scan of the brain without contrast unremarkable. Urinalysis without signs of infection. At this point she is medically cleared and can go back to the assisted. Lab Data Attestation: I reviewed the patient's lab results. Labs: Laboratory Results - last 24 hr 12/01/24 12/01/24 13:46 15:00 WBC 6.6 RBC 4.41 Hgb 13.1 Hct 39.6 MCV 89.8 MCH 29.7 MCHC 33.1 RDW Std Deviation 41.1 RDW Coeff of Meño 12.4 Plt Count 342 MPV 8.3 Immature Gran % (Auto) 0.500 Neut % (Auto) 64.7 Lymph % (Auto) 20.8 [place] % (Auto) 10.1 H Eos % (Auto) 3.3 Baso % (Auto) 0.6 Absolute Neuts (auto) 4.3 Absolute Lymphs (auto) 1.38 Nucleated RBC % 0 Sodium 137 Potassium 4.2 Chloride 103 Carbon Dioxide 18.3 L Anion Gap 16 H BUN 24 H Creatinine 1.01 Estim Creat Clear Calc 39.85 L Est GFR (MDRD) Non-Af 57 L BUN/Creatinine Ratio 23.8 H Glucose 93 Calcium 9.6 Total Bilirubin 0.43 AST 25 ALT 14 Alkaline Phosphatase 46 Total Protein 6.7 Albumin 3.9 Globulin 2.8 Albumin/Globulin Ratio 1.4 Urine Color Yellow Urine Clarity Clear Urine pH 6.0 Ur Specific [place] 1.020 Urine Protein 30 H Urine Glucose (UA) Normal Urine Ketones 5 H Urine Occult Blood Negative Urine Nitrite Negative Urine Bilirubin Negative Urine Urobilinogen Normal Ur Leukocyte Esterase 100 H Urine Opiates Screen NEGATIVE U Buprenorphine Qual NEGATIVE Ur Oxycodone Screen NEGATIVE Urine Methadone Screen NEGATIVE Urine Fentanyl Screen NEGATIVE Ur Barbiturates Screen NEGATIVE Ur Phencyclidine Scrn NEGATIVE Ur Amphetamines Screen NEGATIVE U Benzodiazepines Scrn NEGATIVE Urine Cocaine Screen NEGATIVE U Cannabinoids Screen NEGATIVE Ethyl Alcohol < 10.1 Radiography Diagnostic Testing: Clinical Impression(s) from Imaging Studies Brain CT 12/01/24 13:39 IMPRESSION: 1. No evidence of intracranial hemorrhage or acute ischemia. 2. Changes of chronic microvascular ischemia and volume loss. 3. Postsurgical changes. Reading Location: [facility] EKG Initial EKG: Attestation: I personally reviewed and interpreted this EKG as follows: Comments: Sinus rhythm with ventricular rate of 83 bpm with no acute ST segment changes Discharge Plan Triage Chief Complaint: Mental Health ED Provider: Dillon Loza Dx/Rx/DC Orders Clinical Impression: Dementia Instructions: ED Confusion Prescriptions: No Action aspirin 81 mg Tablet 81 mg PO DAILY acetaminophen 325 mg Tablet 650 mg PO Q6H PRN PRN (Reason: Pain 1-10 Or Fever >100.7) Qty: 0 0RF letrozole 2.5 mg tablet 2.5 mg PO DAILY nortriptyline 50 mg capsule 150 mg PO QHS meclizine [Antivert] 25 mg tablet,chewable 25 mg PO TID PRN (Reason: dizziness) Qty: 10 0RF Patient Comments: Per daughter, takes as needed. Rx Instructions: Use if having dizziness. losartan 25 mg tablet 25 mg PO DAILY ondansetron 4 mg tablet,disintegrating 4 mg PO Q6H metformin 500 mg tablet 500 mg PO DAILY Primary Care Provider: Radha Chang Referrals: Radha Chang MD [Primary Care Provider] - 3-5 Days Print Language: Swedish Disposition Disposition: Home, Self Care
[2024-12-01 13:51] LABS: Hematocrit 39.6 % (37-47); Hemoglobin 13.1 g/dL (12.0-15.0); Immature Granulocytes Count 0.030 X10^3/uL (0.0-0.0); Mean Corp Hgb Conc 33.1 g/dL (32-36); Mean Corpuscular Volume 89.8 fL (81-99); Mean Platelet Vol. 8.3 fl (6.2-12.0); NRBC Flagged by Analyzer 0 % (0-5); Platelet Count 342 K/mm3 (150-450); RBC Distribution Width CV 12.4 % (11.6-14.6); RBC Distribution Width SD 41.1 fl (35.1-43.9); Red Blood Count 4.41 M/mm3 (4.2-5.4); White Blood Count 6.6 K/mm3 (4.4-11.0)
[2024-12-01 14:12] LABS: AST(SGOT) 25 U/L (<=31); Alanine Aminotransfer ALT/SGPT 14 U/L (<=34); Albumin, Serum 3.9 g/dL (3.4-4.8); Alkaline Phosphatase 46 U/L (35-104); Anion Gap 16 (5-15); BUN 24 mg/dL (4-19); BUN/Creat Ratio 23.8 RATIO (10-20); Calcium,Total 9.6 mg/dL (7.6-11.0); Carbon Dioxide 18.3 mmol/L (21.0-32.0); Chloride 103 mmol/L (98-108); Estimated Creatinine Clearance 39.85 ml/min (50-250); Globulin 2.8 g/dL (2.2-4.2); Glucose 93 mg/dL (70-99); Potassium 4.2 mmol/L (3.3-5.1)
[2024-12-01 14:20] VITALS: BP 118/70; PULSE 70; RESP 14; O2SAT 99
[2024-12-01 14:49] LABS: Alcohol, Blood (Medical)-Serum < 10.1 mg/dL (<=10.0)
[2024-12-01 15:00] VITALS: BP 112/65; PULSE 77; RESP 14; O2SAT 99
[2024-12-01 15:06] LABS: Mucous, Urine 0 SEEN /hpf (<or=2+)
[2024-12-01 15:14] LABS: Color, Urine Yellow (Yellow); Glucose, Dipstick Normal (Normal); Ketone-Dipstick 5 mg/dl (Negative); Leukocyte Esterase-Dipstick 100 /ul (Negative); Nitrite-Dipstick Negative (Negative); Occult Blood-Urine Negative /ul (Negative); Protein-Dipstick 30 mg/dl (Negative); Specific Gravity, Urine 1.020 (1.002-1.030); Urine Bilirubin Dipstick Negative (Negative)
[2024-12-01 15:33] VITALS: BP 107/80; PULSE 60; RESP 14; TEMP 36.6; O2SAT 100
--- NOTE | 2024-12-01 15:36 | ED.RN ---
ATTEMPTED TO CALL REPORT TO [facility] WITH NO ANSWER AT THIS TIME
[2024-12-01 15:39] LABS: Barbiturate Urine NEGATIVE (< 200 ng/mL); Benzodiazepine Urine NEGATIVE (< 200 ng/mL); PCP Urine NEGATIVE (< 25 ng/mL); THC Urine NEGATIVE (< 50 ng/mL)
[2024-12-01 15:45] LABS: Red Blood Cells-Urine 0-5 SEEN /hpf (0-5)
[2024-12-01 15:46] LABS: Squamous Epithelial Cells - UA 0-5 SEEN /hpf (5-10)
[2024-12-01 16:00] VITALS: RESP 18; TEMP 36.2
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
--- NOTE | 2024-12-01 16:41 | ED.RN ---
REPORT GIVEN TO AMARJIT CANAS LPN. NO FURTHER QUESTIONS AT THIS TIME.
[2024-12-01 17:00] VITALS: BP 102/66; PULSE 97; RESP 14; O2SAT 99
--- NOTE | 2024-12-01 20:34 | ED.RN ---
Pt sitting in chair in doorway of room. Pt sticking finger in her throat in attempting to make herself vomit. Pt states she feels like she is going to vomit and pass out. Discussed with pt, pt voices frustration that she has been here for 8 hours. Attempted to assess, pt states leave me alone this hospital's service is terrible. Pt yelling out to visitors help me, get me out of here. This RN and security at bedside, attempted to redirect and provide information about delay, unsuccessful. Informed pt regarding delays, pt voices frustration with waiting.
== END 2024-12-01 22:22 | disposition skilled nursing facility (03) ==
PROVIDERS: Emergency Provider Emergency Medicine; PCP Internal Medicine; Visit Provider Emergency Medicine
DX: I10 Essential (primary) hypertension (principal); F02.80 Dementia in other diseases classified elsewhere, unspecified severity, without behavioral disturbance, psychotic disturbance, mood disturbance, and anxiety; E78.5 Hyperlipidemia, unspecified; Z79.82 Long term (current) use of aspirin; Z79.84 Long term (current) use of oral hypoglycemic drugs; Z79.899 Other long term (current) drug therapy
CPT/HCPCS: 70450; 80053; 80307; 81001; 82077; 85025; 93005; 99285

== ENCOUNTER 2024-12-24 16:44 | Emergency (ER) | payer MEDICARE, SELFPAY ==
[2024-12-24 16:46] VITALS: BP 107/79; PULSE 99; RESP 16; TEMP 37.2; O2SAT 99; BMI 26.8
--- NOTE | 2024-12-24 18:36 | EX.ED.DYSGE1 ---
HPI History of Present Illness Chief Complaint: Confusion Informant: patient and family Onset/Context/Timing Onset: Today Context: Gradual Onset Timing: Continuous Quality: Confusion Location: Generalized Worsened by: Nothing Relieved by: Nothing Narrative Narrative: Patient presents with confusion that was noticed today. Patient states she feels fine. Patient is unsure why she is here. Patient denies any fevers or chills. Patient denies nausea or vomiting. Patient states she recently completed a course of Macrobid for urinary tract infection. Patient denies any dysuria or hematuria. Patient denies any abdominal pain. Patient denies any neck or back pain. [facility] Medical History Gastro-esophageal reflux disease without esophagitis Dysphagia, oropharyngeal phase Primary osteoarthritis, right hand Primary osteoarthritis, left hand Need for assistance with personal care Difficulty in walking, not elsewhere classified Muscle wasting and atrophy, not elsewhere classified, left lower leg Muscle wasting and atrophy, not elsewhere classified, right lower leg Unspecified dementia, unspecified severity, without behavioral disturbance, psychotic disturbance, mood disturbance, and anxiety Fall Generalized weakness Hoarseness History of stress test Anxiety Depression Migraines Orthostatic hypotension Normochromic normocytic anemia Diabetes mellitus type 2 in nonobese Hyponatremia Obstructive hydrocephalus IVH (intraventricular hemorrhage) Infiltrating ductal carcinoma of left breast HTN (hypertension) Brain aneurysm SAH (subarachnoid hemorrhage) Walking difficulty due to ankle and foot Hammer toe of right foot Tibialis posterior tendinopathy Posterior tibial tendinitis of right lower extremity Brain aneurysm GERD (gastroesophageal reflux disease) Osteoarthritis HLD (hyperlipidemia) Anxiety and depression HTN (hypertension) Home Medications ?Medication ?Instructions ?Recorded ?Last Taken ?Type aspirin 81 mg tablet 81 mg PO DAILY heart health 02/02/21 10/09/24 History letrozole 2.5 mg tablet 2.5 mg PO DAILY 08/25/24 10/10/24 History nortriptyline 50 mg capsule 150 mg PO QHS 08/25/24 10/09/24 History meclizine 25 mg chewable tablet 25 mg PO TID PRN dizziness #10 tabs 09/09/24 Unknown Rx (Antivert) losartan 25 mg tablet 25 mg PO DAILY 10/10/24 10/10/24 History acetaminophen 325 mg tablet 650 mg (2 x 325 mg) PO Q6H PRN PRN 06/30/25 Unknown Rx Pain 1-10 Or Fever >100.7 #0 tabs metformin 500 mg tablet 500 mg PO DAILY diabetes mellitus 12/01/24 Unknown History ondansetron 4 mg disintegrating 4 mg PO Q6H 12/01/24 Unknown History tablet Allergy/AdvReac Type Severity Reaction Status Date / Time codeine AdvReac Nausea Verified 12/01/24 13:23 fluoxetine HCl (From Prozac) AdvReac shivers Verified 12/01/24 13:23 morphine AdvReac Nausea Verified 12/01/24 13:23 Family History Mother Breast cancer Hypertension Alzheimers disease Aunt Breast cancer Father CAD (coronary artery disease) Sister Alzheimers disease Other Bleeding disorder Surgical History Other specified postprocedural states History of appendectomy S/P coil embolization of cerebral aneurysm History of total knee arthroplasty Hx of craniotomy Cataract extraction status H/O laser iridotomy History of hysterectomy S/P breast lumpectomy S/P coil embolization of cerebral aneurysm Social History household members: none Smoking Status: Never smoker alcohol intake: never substance use type: does not use ROS ROS ED Constitutional Constitutional ED: Denies chills or fever(s) Eyes Eyes: Denies blurry vision or change in vision ENT ENT ED: Denies rhinorrhea or sore throat Cardiovascular Cardiovascular: Denies chest pain or palpitations Respiratory/Chest Respiratory/Chest: Denies cough or dyspnea Gastrointestinal Gastrointestinal: Denies nausea or vomiting Genitourinary Genitourinary ED: Denies dysuria or hematuria Musculoskeletal Musculoskeletal: Denies back pain or neck pain Integumentary Denies abscess or rash Neurologic Neurologic: Denies headache(s) or weakness Allergic/Immunologic Allergic/Immunologic ED: Denies mouth swelling or urticaria EXAM Physical Exam Const Vital Signs: 12/24/24 16:46 12/24/24 19:00 12/24/24 19:25 Temperature 98.9 F Temperature Source Oral Pulse Rate 99 83 Respiratory Rate 16 18 Blood Pressure 107/79 115/76 115/76 Blood Pressure Mean 88 89 89 Pulse Ox 99 100 Oxygen Delivery Method Room Air Room Air Positive well nourished and well developed General Appearance ED: well developed and NAD HEENT Reports moist mucous membranes Neck supple and no JVD Resp normal respiratory effort and clear to auscultation bilaterally Cardio regular rate and regular rhythm GI non-tender and non-distended Palpation: soft Extremity normal to inspection General Extremety ED: Negative for edema or tenderness General Extremity: Negative for edema Neuro oriented x3, CN's II-XII intact bilaterally and no sensory deficits noted Sensorium / Orientation: alert Motor Exam: strength 5/5 throughout Psych mental status grossly normal MDM MDM MDM Narrative Medical decision making narrative: Differential diagnosis includes urinary tract infection, electrolyte abnormality, dehydration, dementia, and viral illness. CBC will be obtained to assess for leukocytosis and anemia. Basic metabolic profile will be obtained to assess for electrolyte abnormality renal function. Urinalysis will be obtained to assess for urinary tract infection and hematuria. Urine culture will be obtained to assess for urinary tract infection. Lab Data Attestation: I reviewed the patient's lab results. Lab results narrative: CBC was reviewed and was within normal limits. Basic metabolic profile was reviewed and was essentially within normal limits. Urinalysis was reviewed. There is no evidence of urinary tract infection or hematuria. Labs: Laboratory Results - last 24 hr 12/24/24 12/24/24 18:58 19:02 WBC 7.2 RBC 4.69 Hgb 14.2 Hct 42.5 MCV 90.6 MCH 30.3 MCHC 33.4 RDW Std Deviation 42.1 RDW Coeff of Me[place] 12.9 Plt Count 384 MPV 8.4 Immature Gran % (Auto) 0.300 Neut % (Auto) 49.3 Lymph % (Auto) 35.8 [place] % (Auto) 9.1 Eos % (Auto) 4.7 Baso % (Auto) 0.8 Absolute Neuts (auto) 3.6 Absolute Lymphs (auto) 2.59 Nucleated RBC % 0 Sodium 139 Potassium 4.3 Chloride 102 Carbon Dioxide 23.7 Anion Gap 13 BUN 22 H Creatinine 0.89 Estim Creat Clear Calc 44.78 L Est GFR (MDRD) Non-Af 66 BUN/Creatinine Ratio 24.9 H Glucose 101 H Calcium 9.9 Urine Color Yellow Urine Clarity Cloudy Urine pH 6.5 Ur Specific [place] 1.020 Urine Protein 30 H Urine Glucose (UA) Normal Urine Ketones Negative Urine Occult Blood Negative Urine Nitrite Negative Urine Bilirubin Negative Urine Urobilinogen Normal Ur Leukocyte Esterase 100 H Urine RBC 0-5 SEEN Urine WBC 0-5 SEEN Ur Squamous Epith Cells 0-5 SEEN Calcium Oxalate Crystal 2+ Amorphous Sediment 2+ Urine Bacteria 1+ Urine Mucus 0 SEEN Treatment and Re-Evaluation :: Patient was given IV fluids. Patient was feeling better on reevaluation. Patient was advised of her findings. Patient was instructed to follow-up with her primary care physician in 5 to 7 days. Patient was instructed to return if worse in any way. Patient understood and was agreeable with the plan. All questions were answered. Discharge Plan Triage Chief Complaint: Confusion ED Provider: Jose Dodd Dx/Rx/DC Orders Clinical Impression: Confusion, Dementia without behavioral disturbance Instructions: ED Confusion Prescriptions: No Action aspirin 81 mg Tablet 81 mg PO DAILY acetaminophen 325 mg Tablet 650 mg PO Q6H PRN PRN (Reason: Pain 1-10 Or Fever >100.7) Qty: 0 0RF letrozole 2.5 mg tablet 2.5 mg PO DAILY nortriptyline 50 mg capsule 150 mg PO QHS meclizine [Antivert] 25 mg tablet,chewable 25 mg PO TID PRN (Reason: dizziness) Qty: 10 0RF Patient Comments: Per daughter, takes as needed. Rx Instructions: Use if having dizziness. losartan 25 mg tablet 25 mg PO DAILY ondansetron 4 mg tablet,disintegrating 4 mg PO Q6H metformin 500 mg tablet 500 mg PO DAILY Primary Care Provider: Radha Chang Referrals: Radha Chang MD [Primary Care Provider] - 5-7 Days Print Language: Arabic Disposition Disposition: Home, Self Care
[2024-12-24 19:00] VITALS: BP 115/76; PULSE 83; RESP 18; O2SAT 100
[2024-12-24 19:07] LABS: Mucous, Urine 0 SEEN /hpf (<or=2+)
[2024-12-24] MEDS: 0.9% Normal Saline (500mL Bag) 500 ML 1000 ML IV (19:20)
[2024-12-24 19:22] LABS: Hematocrit 42.5 % (37-47); Hemoglobin 14.2 g/dL (12.0-15.0); Immature Granulocytes Count 0.020 X10^3/uL (0.0-0.0); Mean Corp Hgb Conc 33.4 g/dL (32-36); Mean Corpuscular Volume 90.6 fL (81-99); Mean Platelet Vol. 8.4 fl (6.2-12.0); NRBC Flagged by Analyzer 0 % (0-5); Platelet Count 384 K/mm3 (150-450); RBC Distribution Width CV 12.9 % (11.6-14.6); RBC Distribution Width SD 42.1 fl (35.1-43.9); Red Blood Count 4.69 M/mm3 (4.2-5.4); White Blood Count 7.2 K/mm3 (4.4-11.0)
--- OUTSIDE RECORDS SUMMARY | 2024-12-24 19:22 | XMS RPT_ITS | CCD ---
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 rementOrdered By: William Mckoy on 11-27-2024 Specific gravity (U) [Rel density] 1.020 1.002-1.030 [facility] Urine urobilinogen measureme ntOrdered By: William Mckoy on 11-27-2024 Urobilinogen Ql (U) Normal mg/dl Normal [facility] Urine cultureOrdered By: Ravinder Mckoy on 11-03-2024 Bacteria identified Cx Nom (U) Escherichia coli Abnormal [facility] Absolute lymphocyte countOrd ered By: William Mckoy on 11-02-2024 Lymphocytes Auto (Unsp spec) [#/Vol] 1.25 10*3/uL 0.83-4.51 [facility] Absolute neutrophil countOrd ered By: William Mckoy on 11-02-2024 Neutrophils (Bld) [#/Vol] 5.7 10*3/uL 2.0-7.7 [facility] Anion gap in Serum or Plasma Ordered By: William Mckoy on 11-02-2024 Anion gap [Moles/Vol] 12 mmol/L 5-15 [facility] Automated lymphocyte count a s percentage of total leukocytesOrdered By: William Mckoy on 11-02-2024 Lymphocytes/100 WBC Auto (Unsp spec) 15.7 % Low 19-41 [facility] BUN/creatinine ratioOrdered By: William Mckoy on 11-02-2024 Urea nitrogen/Creatinine [Mass ratio] 18.9 mg/mg 10-20 [facility] Basophil percentageOrdered B y: William Mckoy on 11-02-2024 Basophils/100 WBC (Bld) 0.5 % 0-1 [facility] Bilirubin directOrdered By: William Mckoy on 11-02-2024 Bilirubin.direct [Mass/Vol] 0.11 mg/dL 0.00-0.30 [facility] Bilirubin, totalOrdered By: William Mckoy on 11-02-2024 Bilirubin [Mass/Vol] 0.46 mg/dL 0.00-1.30 [facility] Carbon dioxide, total [Moles /volume] in Central venous bloodOrdered By: William Mckoy on 11-02-2024 CO2 [Moles/Vol] 23.1 mmol/L 21.0-32.0 [facility] Chloride assayOrdered By: Rojas Mckoy on 11-02-2024 Chloride [Moles/Vol] 106 mmol/L 98-108 [facility] Eosinophil percentageOrdered By: William Mckoy on 11-02-2024 Eosinophils/100 WBC (Bld) 4.8 % 0-5 [facility] Erythrocyte distribution wid th ratioOrdered By: William Mckoy on 11-02-2024 Erythrocyte distribution width (RBC) [Ratio] 12.5 % 11.6-14.6 [facility] Erythrocyte distribution wid th standard deviationOrdered By: William Mckoy on 11-02-2024 Erythrocyte distribution width (RBC) [Ratio] 42.8 fl 35.1-43.9 [facility] Glomerular filtration rate ( GFR) estimation/1.73 sq m using serum, plasma, or whole bOrdered By: William Mckoy on 11-02-2024 GFR/1.73 sq M.predicted among non-blacks MDRD (S/P/Bld) [Vol rate/Area] 60 mL/min/{1.73_m2} >60 [facility] Comment on above: mL/min/1.73m2 CKD-EP I Creatinine Equation (2020) Hematocrit Auto (Bld) [Volum e fraction]Ordered By: William Mckoy on 11-02-2024 Hematocrit (Bld) [Volume fraction] 43.5 % 37-47 [facility] Hemoglobin A1c percentageOrd ered By: William Mckoy on 11-02-2024 HbA1c (Bld) [Mass fraction] 6.5 % High <5.7 [facility] Hemoglobin measurementOrdere d By: William Mckoy on 11-02-2024 Hemoglobin (Bld) [Mass/Vol] 14.3 g/dL 12.0-15.0 [facility] Immature granulocytes/100 WB C Auto (Bld)Ordered By: William Mckoy on 11-02-2024 Immature granulocytes/100 WBC (Bld) 0.400 % 0.0-0.9 [facility] Comment on above: IG% - Immature Granu locytes (promyelocytes, myelocytes and metamyelocytes) > 1% indicates that a LEFT SHIFT is Present. Laboratory - Chemistry and C hemistry - challengeOrdered By: William Mckoy on 11-02-2024 AST [Catalytic activity/Vol] 31 U/L <32 [facility] MCV (mean corpuscular volume ) determinationOrdered By: William Mckoy on 11-02-2024 MCV (RBC) [Entitic vol] 92.8 fL 81-99 [facility] Mean corpuscular hemoglobin (MCH) determinationOrdered By: William Mckoy on 11-02-2024 MCH (RBC) [Entitic mass] 30.5 pg 27.0-32.0 [facility] Mean corpuscular hemoglobin concentration (MCHC) determinationOrdered By: William Mckoy on 11-02-2024 MCHC (RBC) [Mass/Vol] 32.9 g/dL 32-36 [facility] Mean platelet volume determi nationOrdered By: William Mckoy on 11-02-2024 Platelet mean volume (Bld) [Entitic vol] 9.1 fL 6.2-12.0 [facility] Monocyte percentageOrdered B y: William Mckoy on 11-02-2024 Monocytes/100 WBC (Bld) 7.5 % 0-10 [facility] Neutrophil percentageOrdered By: William Mckoy on 11-02-2024 Neutrophils/100 WBC (Bld) 71.1 % High 47-70 [facility] No Panel InformationOrdered By: William Mckoy on 11-02-2024 31 U/L <32 [facility] Nucleated red blood cell per centageOrdered By: William Mckoy on 11-02-2024 Nucleated RBC/100 WBC (Bld) [Ratio] 0 % 0-5 [facility] Platelet countOrdered By: Rojas Mckoy on 11-02-2024 Platelets (Bld) [#/Vol] 298 10*3/uL 150-450 [facility] Potassium measurement (mass/ volume)Ordered By: William Mckoy on 11-02-2024 Potassium (Unsp spec) [Mass/Vol] 4.3 mmol/L 3.3-5.1 [facility] Comment on above: Hemolysis present, R esults could be affected. RBC Auto (Bld) [#/Vol]Ordere d By: William Mckoy on 11-02-2024 RBC (Bld) [#/Vol] 4.69 10*6/uL 4.2-5.4 [facility] Serum creatinine measurement (mass/volume)Ordered By: William Mckoy on 11-02-2024 Creatinine [Mass/Vol] 0.97 mg/dL 0.70-1.20 [facility] Serum globulin measurementOr dered By: William Mckoy on 11-02-2024 Globulin (S) [Mass/Vol] 2.5 g/dL 2.2-4.2 [facility] Serum glucose measurement (m ass/volume)Ordered By: William Mckoy on 11-02-2024 Glucose [Mass/Vol] 108 mg/dL High 70-99 [facility] Serum or plasma alanine sanders otransferase (ALT) measurementOrdered By: William Mckoy on 11-02-2024 ALT [Catalytic activity/Vol] 19 U/L <35 [facility] Serum or plasma albumin rodríguez urement (mass/volume)Ordered By: William Mckoy on 11-02-2024 Albumin [Mass/Vol] 3.9 g/dL 3.4-4.8 [facility] Serum or plasma albumin/glob ulin mass ratioOrdered By: William Mckoy on 11-02-2024 Albumin/Globulin [Mass ratio] 1.6 {ratio} 0.9-2.4 [facility] Serum or plasma alkaline justin sphatase measurementOrdered By: William Mckoy on 11-02-2024 ALP [Catalytic activity/Vol] 43 U/L 35-104 [facility] Serum or plasma calcium rodríguez urement (mass/volume)Ordered By: William Anthonyjaredpetty on 11-02-2024 Calcium [Mass/Vol] 9.3 mg/dL 7.6-11.0 [facility] Serum or plasma urea nitroge n measurement (mass/volume)Ordered By: William Anthonymina on 11-02-2024 Urea nitrogen [Mass/Vol] 18 mg/dL 4-19 [facility] Sodium levelOrdered By: Yessi cheatham Anthonymina on 11-02-2024 Sodium [Moles/Vol] 141 mmol/L 133-145 [facility] Total proteinOrdered By: Ravinder Mckoy on 11-02-2024 Protein [Mass/Vol] 6.3 g/dL 5.9-8.4 [facility] White blood cell (WBC) count Ordered By: William Anthonymina on 11-02-2024 WBC (Bld) [#/Vol] 8.0 10*3/uL 4.4-11.0 [facility] Bedside Glucoseon 10-24-2024 FINGERSTICK GLU 160 mg/dL High [address] [place] [address] Comment on above: Result Comment: SAMANTA GEMENT OF PATIENT CARE PER NURSING PROTOCOL Performed By: #### L 501.080 ####[facility] [address] [place], [place], [id number] FINGERSTICK GLU 109 mg/dL High [address] [place] [address] Comment on above: Result Comment: SAMANTA GEMENT OF PATIENT CARE PER NURSING PROTOCOL Performed By: #### L 501.080 ####[facility] [address] [place], [place], [id number] Gl[facility] at [facility] deOrdered By: Fitz Vázquez on 10-24-2024 Glucose [Mass/Vol] 160 mg/dL High [address] [place] [address] Comment on above: MANAGEMENT OF PATIEN T CARE PER NURSING PROTOCOL Bedside Glucoseon 10-23-2024 FINGERSTICK GLU 146 mg/dL High [address] [place] [address] Comment on above: Result Comment: SAMANTA GEMENT OF PATIENT CARE PER NURSING PROTOCOL Performed By: #### L 501.080 ####[facility] [address] [place], [address] Bedside Glucoseon 10-22-2024 FINGERSTICK GLU 106 mg/dL Normal 74-106 [facility] Comment on above: Result Comment: SAMANTA GEMENT OF PATIENT CARE PER NURSING PROTOCOL Performed By: #### L 501.080 ####[facility] [address] [place], [address] FINGERSTICK GLU 145 mg/dL High 74-106 [facility] Comment on above: Result Comment: SAMANTA GEMENT OF PATIENT CARE PER NURSING PROTOCOL Performed By: #### L 501.080 ####[facility] [address] [place], [address] Bedside Glucoseon 10-21-2024 FINGERSTICK GLU 140 mg/dL High 74-106 [facility] Comment on above: Result Comment: SAMANTA GEMENT OF PATIENT CARE PER NURSING PROTOCOL Performed By: #### L 501.080 ####[facility] [address] [place], [address] FINGERSTICK GLU 136 mg/dL High -106 [facility] Comment on above: Result Comment: SAMANTA GEMENT OF PATIENT CARE PER NURSING PROTOCOL Performed By: #### L 501.080 ####[facility] [address] [place], [address] Absolute lymphocyte countOrd ered By: Desiree Awan on 10-20-2024 Lymphocytes Auto (Unsp spec) [#/Vol] 1.59 10*3/uL 0.83-4.51 [facility] Absolute neutrophil countOrd ered By: Desiree Awan on 10-20-2024 Neutrophils (Bld) [#/Vol] 3.4 10*3/uL 2.0-7.7 [facility] Anion gap in Serum or Plasma Ordered By: Desiree Awan on 10-20-2024 Anion gap [Moles/Vol] 11 mmol/L 5-15 [facility] Automated lymphocyte count a s percentage of total leukocytesOrdered By: Desiree Awan on 10-20-2024 Lymphocytes/100 WBC Auto (Unsp spec) 26.6 % 19-41 [facility] BUN/creatinine ratioOrdered By: Desiree Awan on 10-20-2024 Urea nitrogen/Creatinine [Mass ratio] 21.0 mg/mg High 10-20 [facility] Basophil percentageOrdered B y: Desiree Awan on 10-20-2024 Basophils/100 WBC (Bld) 0.8 % 0-1 [facility] Bedside Glucoseon 10-20-2024 FINGERSTICK GLU 136 mg/dL High 74-106 [facility] Comment on above: Result Comment: SAMANTA GEMENT OF PATIENT CARE PER NURSING PROTOCOL Performed By: #### L 501.080 ####[facility] [address] [facility] [address] FINGERSTICK GLU 119 mg/dL High [facility]106 [facility] Comment on above: Result Comment: SAMANTA GEMENT OF PATIENT CARE PER NURSING PROTOCOL Performed By: #### L 501.080 ####[facility] [address] [place], [address] FINGERSTICK GLU 122 mg/dL High [facility]106 [facility] Comment on above: Result Comment: SAMANTA GEMENT OF PATIENT CARE PER NURSING PROTOCOL Performed By: #### L 501.080 ####[facility] [address] [place], [address] FINGERSTICK GLU 157 mg/dL High [address] Comment on above: Result Comment: SAMANTA GEMENT OF PATIENT CARE PER NURSING PROTOCOL Performed By: #### L 501.080 ####[facility] [address] [place], [address] Bilirubin, totalOrdered By: Desiree Awan on 10-20-2024 Bilirubin [Mass/Vol] 0.27 mg/dL 0.00-1.30 [facility] CBC W/Diff, Automatedon 09-27 Absolute Lymph 1.59 X10 3/uL Normal 0.83-4.51 [facility] Comment on above: Performed By: #### L 100.0100, L501.9520, L500.4050 ####[facility] [address] [place], [address] Absolute Neut 3.4 X10 3/uL Normal 2.0-7.7 [facility] Comment on above: Performed By: #### L 100.0100, L501.9520, L500.4050 ####[facility] [address] [place], [address] Basophils/100 WBC (Bld) 0.8 % Normal 0-1 [facility] Comment on above: Performed By: #### L 100.0100, L501.9520, L500.4050 ####[facility] [address] [place], [address] Eosinophils/100 WBC (Bld) 6.2 % High 0-5 [facility] Comment on above: Performed By: #### L 100.0100, L501.9520, L500.4050 ####[facility] [address] [place], [address] Erythrocyte distribution width (RBC) [Ratio] 12.5 % Normal 11.6-14.6 [facility] Comment on above: Performed By: #### L 100.0100, L501.9520, L500.4050 ####[facility] [address] [place], [address] Hematocrit (Bld) [Volume fraction] 36.3 % Low 37-47 [facility] Comment on above: Performed By: #### L 100.0100, L501.9520, L500.4050 ####[facility] [address] [place], [address] Hemoglobin (Bld) [Mass/Vol] 11.6 g/dL Low 12.0-15.0 [facility] Comment on above: Performed By: #### L 100.0100, L501.9520, L500.4050 ####[facility] [address] [place], [address] IG% 0.500 Normal 0.0-0.9 [facility] Comment on above: Result Comment: IG% - Immature Granulocytes (promyelocytes, myelocytes andmetamyelocytes) > 1% indicates that a LEFT SHIFT is Present. Performed By: #### L 100.0100, L501.9520, L500.4050 ####[facility] [address] [place], [address] Lymphocytes/100 WBC (Bld) 26.6 % Normal 19-41 [facility] Comment on above: Performed By: #### L 100.0100, L501.9520, L500.4050 ####[facility] [address] [place], [address] MCH (RBC) [Entitic mass] 29.8 pg Normal 27.0-32.0 [facility] Comment on above: Performed By: #### L 100.0100, L501.9520, L500.4050 ####[facility] [address] [place], [address] MCHC (RBC) [Mass/Vol] 32.0 g/dL Normal 32-36 [facility] Comment on above: Performed By: #### L 100.0100, L501.9520, L500.4050 ####[facility] [address] [place], [address] MCV (RBC) [Entitic vol] 93.3 fL Normal 81-99 [facility] Comment on above: Performed By: #### L 100.0100, L501.9520, L500.4050 ####[facility] [address] [place], [address] Monocytes/100 WBC (Bld) 8.5 % Normal 0-10 [facility] Comment on above: Performed By: #### L 100.0100, L501.9520, L500.4050 ####[facility] [address] [place], [address] Neutrophils/100 WBC (Bld) 57.4 % Normal 47-70 [facility] Comment on above: Performed By: #### L 100.0100, L501.9520, L500.4050 ####[facility] [address] [place], [address] Nucleated RBC (Bld) [#/Vol] 0 10*3/uL Normal 0-5 [facility] Comment on above: Performed By: #### L 100.0100, L501.9520, L500.4050 ####[facility] [address] [place], [address] Platelet mean volume (Bld) [Entitic vol] 8.4 fL Normal 6.2-12.0 [facility] Comment on above: Performed By: #### L 100.0100, L501.9520, L500.4050 ####[facility] [address] [place], [address] Platelets (Bld) [#/Vol] 317 10*3/uL Normal 150-450 [facility] Comment on above: Performed By: #### L 100.0100, L501.9520, L500.4050 ####[facility] [address] [place], [address] RBC (Bld) [#/Vol] 3.89 10*6/uL Low 4.2-5.4 [facility] Comment on above: Performed By: #### L 100.0100, L501.9520, L500.4050 ####[facility] [address] [place], [address] RDW SD 42.8 fl Normal 35.1-43.9 [facility] Comment on above: Performed By: #### L 100.0100, L501.9520, L500.4050 ####[facility] [address] [place], [address] WBC (Bld) [#/Vol] 6.0 10*3/uL Normal 4.4-11.0 [facility] Comment on above: Performed By: #### L 100.0100, L501.9520, L500.4050 ####[facility] [address] [place], [address] Carbon dioxide, total [Moles /volume] in Central venous bloodOrdered By: Desiree Awan on 10-20-2024 CO2 [Moles/Vol] 22.1 mmol/L 21.0-32.0 [facility] Chloride assayOrdered By: Horacio Awan on 10-20-2024 Chloride [Moles/Vol] 107 mmol/L 98-108 [facility] Comprehensive Metabolic Prof ilon 10-20-2024 Albumin [Mass/Vol] 3.3 g/dL Low 3.4-4.8 [facility] Comment on above: Performed By: #### L 100.0100, L501.9520, L500.4050 ####[facility] [address] [place], [address] Albumin/Globulin [Mass ratio] 1.4 {ratio} Normal 0.9-2.4 [facility] Comment on above: Performed By: #### L 100.0100, L501.9520, L500.4050 ####[facility] [address] [place], [address] ALK PHOS 40 U/L Normal 35-104 [facility] Comment on above: Performed By: #### L 100.0100, L501.9520, L500.4050 ####[facility] [address] [place], [address] ALT [Catalytic activity/Vol] 17 U/L Normal <=34 [facility] Comment on above: Performed By: #### L 100.0100, L501.9520, L500.4050 ####[facility] [address] [place], [address] AST [Catalytic activity/Vol] 24 U/L Normal <=31 [facility] Comment on above: Performed By: #### L 100.0100, L501.9520, L500.4050 ####[facility] [address] [place], [address] Bilirubin [Mass/Vol] 0.27 mg/dL Normal 0.00-1.30 [facility] Comment on above: Performed By: #### L 100.0100, L501.9520, L500.4050 ####[facility] [address] [place], [address] BUN/CRE 21.0 RATIO High 10-20 [facility] Comment on above: Performed By: #### L 100.0100, L501.9520, L500.4050 ####[facility] [address] [place], [address] Calcium [Mass/Vol] 8.7 mg/dL Normal 7.6-11.0 [facility] Comment on above: Performed By: #### L 100.0100, L501.9520, L500.4050 ####[facility] [address] [place], [address] Chloride [Moles/Vol] 107 mmol/L Normal 98-108 [facility] Comment on above: Performed By: #### L 100.0100, L501.9520, L500.4050 ####[facility] [address] [place], [address] CO2 [Moles/Vol] 22.1 mmol/L Normal 21.0-32.0 [facility] Comment on above: Performed By: #### L 100.0100, L501.9520, L500.4050 ####[facility] [address] [place], [address] Creatinine [Mass/Vol] 0.93 mg/dL Normal 0.70-1.20 [facility] Comment on above: Performed By: #### L 100.0100, L501.9520, L500.4050 ####[facility] [address] [place], [address] ECRCL 41.85 ml/min Low 50-250 [facility] Comment on above: Performed By: #### L 100.0100, L501.9520, L500.4050 ####[facility] [address] [place], [address] GAP 11 Normal 5-15 [facility] Comment on above: Performed By: #### L 100.0100, L501.9520, L500.4050 ####[facility] [address] [place], [address] GFR/1.73 sq M.predicted among non-blacks MDRD (S/P/Bld) [Vol rate/Area] 63 mL/min/{1.73_m2} Normal >60 [facility] [facility] Comment on above: Result Comment: mL/m in/1.73m2 CKD-EPI Creatinine Equation (2020) Performed By: #### L 100.0100, L501.9520, L500.4050 ####[facility] [address] [place], [address] Globulin (S) [Mass/Vol] 2.4 g/dL Normal 2.2-4.2 [facility] Comment on above: Performed By: #### L 100.0100, L501.9520, L500.4050 ####[facility] [address] [place], [address] Glucose [Mass/Vol] 186 mg/dL High 70-99 [facility] Comment on above: Performed By: #### L 100.0100, L501.9520, L500.4050 ####[facility] [address] [place], [address] Potassium [Moles/Vol] 4.4 mmol/L Normal 3.3-5.1 [facility] Comment on above: Performed By: #### L 100.0100, L501.9520, L500.4050 ####[facility] [address] [place], [address] Sodium [Moles/Vol] 140 mmol/L Normal 133-145 [facility] Comment on above: Performed By: #### L 100.0100, L501.9520, L500.4050 ####[facility] [address] [place], [address] T PROT 5.7 g/dL Low 5.9-8.4 [facility] Comment on above: Performed By: #### L 100.0100, L501.9520, L500.4050 ####[facility] [address] [place], [address] Urea nitrogen [Mass/Vol] 20 mg/dL High 4-19 [facility] Comment on above: Performed By: #### L 100.0100, L501.9520, L500.4050 ####[facility] [address] [place], [address] Eosinophil percentageOrdered By: Desiree Awan on 10-20-2024 Eosinophils/100 WBC (Bld) 6.2 % High 0-5 [facility] Erythrocyte distribution wid th ratioOrdered By: Desiree Awan on 10-20-2024 Erythrocyte distribution width (RBC) [Ratio] 12.5 % 11.6-14.6 [facility] Erythrocyte distribution wid th standard deviationOrdered By: Desiree Awan on 10-20-2024 Erythrocyte distribution width (RBC) [Ratio] 42.8 fl 35.1-43.9 [facility] Glomerular filtration rate ( GFR) estimation/1.73 sq m using serum, plasma, or whole bOrdered By: Desiree Awan on 10-20-2024 GFR/1.73 sq M.predicted among non-blacks MDRD (S/P/Bld) [Vol rate/Area] 63 mL/min/{1.73_m2} >60 [facility] Comment on above: mL/min/1.73m2 CKD-EP I Creatinine Equation (2020) Hematocrit Auto (Bld) [Volum e fraction]Ordered By: Desiree Awan on 10-20-2024 Hematocrit (Bld) [Volume fraction] 36.3 % Low 37-47 [facility] Hemoglobin measurementOrdere d By: Desiree Awan on 10-20-2024 Hemoglobin (Bld) [Mass/Vol] 11.6 g/dL Low 12.0-15.0 [facility] Immature granulocytes/100 WB C Auto (Bld)Ordered By: Desiree Awan on 10-20-2024 Immature granulocytes/100 WBC (Bld) 0.500 % 0.0-0.9 [facility] Comment on above: IG% - Immature Granu locytes (promyelocytes, myelocytes and metamyelocytes) > 1% indicates that a LEFT SHIFT is Present. Laboratory - Chemistry and C hemistry - challengeOrdered By: Desiree Awan on 10-20-2024 AST [Catalytic activity/Vol] 24 U/L <32 [facility] MCV (mean corpuscular volume ) determinationOrdered By: Desiree Awan on 10-20-2024 MCV (RBC) [Entitic vol] 93.3 fL 81-99 [facility] Mean corpuscular hemoglobin (MCH) determinationOrdered By: Desiree Awan on 10-20-2024 MCH (RBC) [Entitic mass] 29.8 pg 27.0-32.0 [facility] Mean corpuscular hemoglobin concentration (MCHC) determinationOrdered By: Desiree Awan on 10-20-2024 MCHC (RBC) [Mass/Vol] 32.0 g/dL 32-36 [facility] Mean platelet volume determi nationOrdered By: Desiree Awan on 10-20-2024 Platelet mean volume (Bld) [Entitic vol] 8.4 fL 6.2-12.0 [facility] Monocyte percentageOrdered B y: Desiree Awan on 10-20-2024 Monocytes/100 WBC (Bld) 8.5 % 0-10 [facility] Neutrophil percentageOrdered By: Desiree Awan on 10-20-2024 Neutrophils/100 WBC (Bld) 57.4 % 47-70 [facility] No Panel InformationOrdered By: Desiree Awan on 10-20-2024 24 U/L <32 [facility] Nucleated red blood cell per centageOrdered By: Desiree Awan on 10-20-2024 Nucleated RBC/100 WBC (Bld) [Ratio] 0 % 0-5 [facility] Platelet countOrdered By: Horacio Awan on 10-20-2024 Platelets (Bld) [#/Vol] 317 10*3/uL 150-450 [facility] Potassium measurement (mass/ volume)Ordered By: Desiree Awan on 10-20-2024 Potassium (Unsp spec) [Mass/Vol] 4.4 mmol/L 3.3-5.1 [facility] RBC Auto (Bld) [#/Vol]Ordere d By: Desiree Awan on 10-20-2024 RBC (Bld) [#/Vol] 3.89 10*6/uL Low 4.2-5.4 [facility] Serum creatinine measurement (mass/volume)Ordered By: Desiree Awan on 10-20-2024 Creatinine [Mass/Vol] 0.93 mg/dL 0.70-1.20 [facility] Serum globulin measurementOr dered By: Desiree Awan on 10-20-2024 Globulin (S) [Mass/Vol] 2.4 g/dL 2.2-4.2 [facility] Serum glucose measurement (m ass/volume)Ordered By: Desiree Awan on 10-20-2024 Glucose [Mass/Vol] 186 mg/dL High 70-99 [facility] Serum or plasma alanine sanders otransferase (ALT) measurementOrdered By: Desiree Awan on 10-20-2024 ALT [Catalytic activity/Vol] 17 U/L <35 [facility] Serum or plasma albumin rodríguez urement (mass/volume)Ordered By: Desiree Awan on 10-20-2024 Albumin [Mass/Vol] 3.3 g/dL Low 3.4-4.8 [facility] Serum or plasma albumin/glob ulin mass ratioOrdered By: Desiree Awan on 10-20-2024 Albumin/Globulin [Mass ratio] 1.4 {ratio} 0.9-2.4 [facility] Serum or plasma alkaline justin sphatase measurementOrdered By: Desiree Awan on 10-20-2024 ALP [Catalytic activity/Vol] 40 U/L 35-104 [facility] Serum or plasma calcium rodríguez urement (mass/volume)Ordered By: Desiree Awan on 10-20-2024 Calcium [Mass/Vol] 8.7 mg/dL 7.6-11.0 [facility] Serum or plasma urea nitroge n measurement (mass/volume)Ordered By: Desiree Awan on 10-20-2024 Urea nitrogen [Mass/Vol] 20 mg/dL High 4-19 [facility] Sodium levelOrdered By: Toribio Awan on 10-20-2024 Sodium [Moles/Vol] 140 mmol/L 133-145 [facility] TSH DL <= 0.005 mIU/L QnOrde red By: Desiree Awan on 10-20-2024 TSH Qn 2.300 uIU/mL 0.300-4.200 [facility] Thyroid Stim Hormone (TSH)on 10-20-2024 TSH 2.300 uIU/mL Normal 0.300-4.200 [facility] Comment on above: Performed By: #### L 100.0100, L501.9520, L500.4050 ####[facility] [address] [place], [place], [id number] Total proteinOrdered By: Daren Awan on 10-20-2024 Protein [Mass/Vol] 5.7 g/dL Low 5.9-8.4 [facility] White blood cell (WBC) count Ordered By: Desiree Awan on 10-20-2024 WBC (Bld) [#/Vol] 6.0 10*3/uL 4.4-11.0 [facility] 12 Lead EKGon 10-19-2024 12 Lead EKG Normal [facility] Absolute lymphocyte countOrd ered By: Mikel Bonilla on 10-19-2024 Lymphocytes Auto (Unsp spec) [#/Vol] 1.76 10*3/uL 0.83-4.51 [facility] Absolute neutrophil countOrd ered By: Mikel Bonilla on 10-19-2024 Neutrophils (Bld) [#/Vol] 6.7 10*3/uL 2.0-7.7 [facility] Ammoniaon 10-19-2024 Ammonia (P) [Mass/Vol] ug/dL Low 11-51 [facility] Comment on above: Performed By: #### L 503.5510, L503.0106 ####[facility] [address] [place], [place], [id number] Amorphous sediment detection in urine sediment by light microscopyOrdered By: Mikel Bonilla on 10-19-2024 Amorphous sediment LM Ql (Urine sed) 2+ [facility] Amphetamine detection with 1 000 ng/mL as cutoffOrdered By: Desiree Awan on 10-19-2024 Amphetamines Screen method >1000 ng/mL Ql (U) Negative < 200 ng/mL [facility] Anion gap in Serum or Plasma Ordered By: Mikel Bonilla on 10-19-2024 Anion gap [Moles/Vol] 12 mmol/L 5-15 [facility] Automated lymphocyte count a s percentage of total leukocytesOrdered By: Mikel Bonilla on 10-19-2024 Lymphocytes/100 WBC Auto (Unsp spec) 18.5 % Low 19-41 [facility] BUN/creatinine ratioOrdered By: Mikel Bonilla on 10-19-2024 Urea nitrogen/Creatinine [Mass ratio] 24.6 mg/mg High 10-20 [facility] Basic Metabolic Profile (BMP )on 10-19-2024 BUN/CRE 24.6 RATIO High 02-14 [facility] Comment on above: Performed By: #### L 501.3620, L100.0100, L500.2500 ####[facility] [address] [place], [place], [id number] Calcium [Mass/Vol] 9.7 mg/dL Normal 7.6-11.0 [facility] Comment on above: Performed By: #### L 501.3620, L100.0100, L500.2500 ####[facility] [address] [place], [address] Chloride [Moles/Vol] 105 mmol/L Normal 98-108 [facility] Comment on above: Performed By: #### L 501.3620, L100.0100, L500.2500 ####[facility] [address] [place], [address] CO2 [Moles/Vol] 23.7 mmol/L Normal 21.0-32.0 [facility] Comment on above: Performed By: #### L 501.3620, L100.0100, L500.2500 ####[facility] [address] [place], [address] Creatinine [Mass/Vol] 0.97 mg/dL Normal 0.70-1.20 [facility] Comment on above: Performed By: #### L 501.3620, L100.0100, L500.2500 ####[facility] [address] [place], [address] ECRCL 43.58 ml/min Low 50-250 [facility] Comment on above: Performed By: #### L 501.3620, L100.0100, L500.2500 ####[facility] [address] [place], [address] GAP 12 Normal 5-15 [facility] Comment on above: Performed By: #### L 501.3620, L100.0100, L500.2500 ####[facility] [address] [place], [address] GFR/1.73 sq M.predicted among non-blacks MDRD (S/P/Bld) [Vol rate/Area] 60 mL/min/{1.73_m2} Normal >60 [facility] Comment on above: Result Comment: mL/m in/1.73m2 CKD-EPI Creatinine Equation (2020) Performed By: #### L 501.3620, L100.0100, L500.2500 ####[facility] [address] [place], [address] Glucose [Mass/Vol] 109 mg/dL High 70-99 [facility] Comment on above: Performed By: #### L 501.3620, L100.0100, L500.2500 ####[facility] [address] [place], [address] Potassium [Moles/Vol] 4.3 mmol/L Normal 3.3-5.1 [facility] Comment on above: Result Comment: Hemo lysis present, Results??could be affected.?? Performed By: #### L 501.3620, L100.0100, L500.2500 ####[facility] [address] [place], [address] Sodium [Moles/Vol] 140 mmol/L Normal 133-145 [facility] Comment on above: Performed By: #### L 501.3620, L100.0100, L500.2500 ####[facility] [address] [place], [address] Urea nitrogen [Mass/Vol] 24 mg/dL High 4-19 [facility] Comment on above: Performed By: #### L 501.3620, L100.0100, L500.2500 ####[facility] [address] [place], [address] Basophil percentageOrdered B y: Mikel Le on 10-19-2024 Basophils/100 WBC (Bld) 0.5 % 0-1 [facility] Bedside Glucoseon 10-19-2024 FINGERSTICK GLU 85 mg/dL Normal 74-106 [facility] Comment on above: Result Comment: SAMANTA CHEEMA OF PATIENT CARE PER NURSING PROTOCOL Performed By: #### L 501.080 ####[facility] [address] [place], [address] Bilirubin Test strip Ql (U)O rdered By: Mikel Bonilla on 10-19-2024 Bilirubin Ql (U) Negative Negative [facility] Brain/Head without Contrasto n 10-19-2024 Brain/Head without Contrast Normal [facility] CBC W/Diff, Automatedon 09-27 Absolute Lymph 1.76 X10 3/uL Normal 0.83-4.51 [facility] Comment on above: Performed By: #### L 501.3620, L100.0100, L500.2500 ####[facility] [address] [place], [address] Absolute Neut 6.7 X10 3/uL Normal 2.0-7.7 [facility] Comment on above: Performed By: #### L 501.3620, L100.0100, L500.2500 ####[facility] [address] [place], [address] Basophils/100 WBC (Bld) 0.5 % Normal 0-1 [facility] Comment on above: Performed By: #### L 501.3620, L100.0100, L500.2500 ####[facility] [address] [place], [address] Eosinophils/100 WBC (Bld) 2.5 % Normal 0-5 [facility] Comment on above: Performed By: #### L 501.3620, L100.0100, L500.2500 ####[facility] [address] [place], [address] Erythrocyte distribution width (RBC) [Ratio] 12.2 % Normal 11.6-14.6 [facility] Comment on above: Performed By: #### L 501.3620, L100.0100, L500.2500 ####[facility] [address] [place], [address] Hematocrit (Bld) [Volume fraction] 40.6 % Normal 37-47 [facility] Comment on above: Performed By: #### L 501.3620, L100.0100, L500.2500 ####[facility] [address] [place], [address] Hemoglobin (Bld) [Mass/Vol] 13.3 g/dL Normal 12.0-15.0 [facility] Comment on above: Performed By: #### L 501.3620, L100.0100, L500.2500 ####[facility] [address] [place], [address] IG% 0.300 Normal 0.0-0.9 [facility] Comment on above: Result Comment: IG% - Immature Granulocytes (promyelocytes, myelocytes andmetamyelocytes) > 1% indicates that a LEFT SHIFT is Present. Performed By: #### L 501.3620, L100.0100, L500.2500 ####[facility] [address] [place], [address] Lymphocytes/100 WBC (Bld) 18.5 % Low 19-41 [facility] Comment on above: Performed By: #### L 501.3620, L100.0100, L500.2500 ####[facility] [address] [place], [address] MCH (RBC) [Entitic mass] 30.0 pg Normal 27.0-32.0 [facility] Comment on above: Performed By: #### L 501.3620, L100.0100, L500.2500 ####[facility] [address] [place], [address] MCHC (RBC) [Mass/Vol] 32.8 g/dL Normal 32-36 [facility] Comment on above: Performed By: #### L 501.3620, L100.0100, L500.2500 ####[facility] [address] [place], [address] MCV (RBC) [Entitic vol] 91.6 fL Normal 81-99 [facility] Comment on above: Performed By: #### L 501.3620, L100.0100, L500.2500 ####[facility] [address] [place], [address] Monocytes/100 WBC (Bld) 8.1 % Normal 0-10 [facility] Comment on above: Performed By: #### L 501.3620, L100.0100, L500.2500 ####[facility] [address] [place], [address] Neutrophils/100 WBC (Bld) 70.1 % High 47-70 [facility] Comment on above: Performed By: #### L 501.3620, L100.0100, L500.2500 ####[facility] [address] [place], [address] Nucleated RBC (Bld) [#/Vol] 0 10*3/uL Normal 0-5 [facility] Comment on above: Performed By: #### L 501.3620, L100.0100, L500.2500 ####[facility] [address] [place], [address] Platelet mean volume (Bld) [Entitic vol] 8.4 fL Normal 6.2-12.0 [facility] Comment on above: Performed By: #### L 501.3620, L100.0100, L500.2500 ####[facility] [address] [place], [address] Platelets (Bld) [#/Vol] 330 10*3/uL Normal 150-450 [facility] Comment on above: Performed By: #### L 501.3620, L100.0100, L500.2500 ####[facility] [address] [place], [address] RBC (Bld) [#/Vol] 4.43 10*6/uL Normal 4.2-5.4 [facility] Comment on above: Performed By: #### L 501.3620, L100.0100, L500.2500 ####[facility] [address] [place], [address] RDW SD 41.1 fl Normal 35.1-43.9 [facility] Comment on above: Performed By: #### L 501.3620, L100.0100, L500.2500 ####[facility] [address] [place], [address] WBC (Bld) [#/Vol] 9.5 10*3/uL Normal 4.4-11.0 [facility] Comment on above: Performed By: #### L 501.3620, L100.0100, L500.2500 ####[facility] [address] [place], [address] CPK Total, Creatine Kinaseon 10-19-2024 CPK TOTAL 91 U/L Normal 24-195 [facility] Comment on above: Performed By: #### L 501.3620, L100.0100, L500.2500 ####[facility] [address] [place], [address] Carbon dioxide, total [Moles /volume] in Central venous bloodOrdered By: Mikel Bonilla on 10-19-2024 CO2 [Moles/Vol] 23.7 mmol/L 21.0-32.0 [facility] Chest PA and Lateralon 10-19 Chest PA and Lateral Normal [facility] Chloride assayOrdered By: Nando Bonilla on 10-19-2024 Chloride [Moles/Vol] 105 mmol/L 98-108 [facility] Electrocardiogram reportOrde red By: Jone Fishman on 10-19-2024 EKG study [facility] [address] [place] [address] 12 Lead EKG 10/19/24 1345 MR#: [id number] Acct: [id number] Name: JUDI PITTMAN Rep #:[id number] : 1945 79 From: Jone Fishman MD [...] When compared with ECG of 10-Oct-2024 14:29, [place] interval has increased Confirmed by RAFAEL TAVERA, JONE ([id number]), script editor DONITA CARPENTER ([id number]) on 10/19/2024 1:56:09 PM Referred By: Confirmed By: JONE FISHMAN MD 10/19/24 1356 Date _ oJne Fishman MD CC: Dr. Ruddy Cooper MD; Dr. Mikel Bonilla, ~ Signed [facility] Other Phone: Emergency Department Summary on 10-19-2024 Emergency Department Summary Normal [facility] Eosinophil percentageOrdered By: Mikel Bonilla on 10-19-2024 Eosinophils/100 WBC (Bld) 2.5 % 0-5 [facility] Erythrocyte distribution wid th ratioOrdered By: Mikel Bonilla on 10-19-2024 Erythrocyte distribution width (RBC) [Ratio] 12.2 % 11.6-14.6 [facility] Erythrocyte distribution wid th standard deviationOrdered By: Mikel Bonilla on 10-19-2024 Erythrocyte distribution width (RBC) [Ratio] 41.1 fl 35.1-43.9 [facility] Glomerular filtration rate ( GFR) estimation/1.73 sq m using serum, plasma, or whole bOrdered By: Mikel Bonilla on 10-19-2024 GFR/1.73 sq M.predicted among non-blacks MDRD (S/P/Bld) [Vol rate/Area] 60 mL/min/{1.73_m2} >60 [facility] Comment on above: mL/min/1.73m2 CKD-EP I Creatinine Equation (2020) H AND P Exam - [facility] 10-19-2024 H&P Exam - Hospitalist Normal [facility] Hematocrit Auto (Bld) [Volum e fraction]Ordered By: Mikel Bonilla on 10-19-2024 Hematocrit (Bld) [Volume fraction] 40.6 % 37-47 [facility] Hemoglobin measurementOrdere d By: Mikel Bonilla on 10-19-2024 Hemoglobin (Bld) [Mass/Vol] 13.3 g/dL 12.0-15.0 [facility] Immature granulocytes/100 WB C Auto (Bld)Ordered By: Mikel Bonilla on 10-19-2024 Immature granulocytes/100 WBC (Bld) 0.300 % 0.0-0.9 [facility] Comment on above: IG% - Immature Granu locytes (promyelocytes, myelocytes and metamyelocytes) > 1% indicates that a LEFT SHIFT is Present. Ketones Test strip Ql (U)Ord ered By: Mikel Bonilla on 10-19-2024 Ketones Ql (U) 5 mg/dl High Negative [facility] MCV (mean corpuscular volume ) determinationOrdered By: Mikel Bonilla on 10-19-2024 MCV (RBC) [Entitic vol] 91.6 fL 81-99 [facility] Mean corpuscular hemoglobin (MCH) determinationOrdered By: Mikel Bonilla on 10-19-2024 MCH (RBC) [Entitic mass] 30.0 pg 27.0-32.0 [facility] Mean corpuscular hemoglobin concentration (MCHC) determinationOrdered By: Mikel Bonilla on 10-19-2024 MCHC (RBC) [Mass/Vol] 32.8 g/dL 32-36 [facility] Mean platelet volume determi nationOrdered By: Mikel Bonilla on 10-19-2024 Platelet mean volume (Bld) [Entitic vol] 8.4 fL 6.2-12.0 [facility] Microscopic analysis of urin e for red blood cells (RBC)Ordered By: Mikel Bonilla on 10-19-2024 Microscopic analysis of urine for red blood cells (RBC) 0-5 SEEN /hpf 0-5 [facility] Monocyte percentageOrdered B y: Mikel Bonilla on 10-19-2024 Monocytes/100 WBC (Bld) 8.1 % 0-10 [facility] Mucus LM Ql (Urine sed)Order ed By: Mikel Bonilla on 10-19-2024 Mucus Ql (Urine sed) 0 SEEN /hpf [facility] Neutrophil percentageOrdered By: Mikel Bonilla on 10-19-2024 Neutrophils/100 WBC (Bld) 70.1 % High 47-70 [facility] Nitrite Test strip Ql (U)Ord ered By: Mikel Bonilla on 10-19-2024 Nitrite Ql (U) Negative Negative [facility] No Panel InformationOrdered By: Desiree Awan on 10-19-2024 Urine Buprenorphine Qualitative Negative < 200 ng/mL [facility] Urine Oxycodone Screen Negative < 100 ng/mL [facility] Negative < 200 ng/mL [facility] Nucleated red blood cell per centageOrdered By: Mikel Bonilla on 10-19-2024 Nucleated RBC/100 WBC (Bld) [Ratio] 0 % 0-5 [facility] Platelet countOrdered By: Nando Bonilla on 10-19-2024 Platelets (Bld) [#/Vol] 330 10*3/uL 150-450 [facility] Potassium measurement (mass/ volume)Ordered By: Mikel Bonilla on 10-19-2024 Potassium (Unsp spec) [Mass/Vol] 4.3 mmol/L 3.3-5.1 [facility] Comment on above: Hemolysis present, R esults could be affected. Protein Test strip Ql (U)Ord ered By: Mikel Bonilla on 10-19-2024 Protein Ql (U) 15 mg/dl High Negative [facility] Quantitative urine opiates m easurementOrdered By: Desiree Awan on 10-19-2024 Opiates Ql (U) Negative < 300 ng/mL [facility] RBC Auto (Bld) [#/Vol]Ordere d By: Mikel Bonilla on 10-19-2024 RBC (Bld) [#/Vol] 4.43 10*6/uL 4.2-5.4 [facility] Screening urine fentanyl chacha surementOrdered By: Desiree Awan on 10-19-2024 fentaNYL Screen Ql (U) Negative [facility] Serum creatinine measurement (mass/volume)Ordered By: Mikel Bonilla on 10-19-2024 Creatinine [Mass/Vol] 0.97 mg/dL 0.70-1.20 [facility] Serum glucose measurement (m ass/volume)Ordered By: Mikel Bonilla on 10-19-2024 Glucose [Mass/Vol] 109 mg/dL High 70-99 [facility] Serum or plasma calcium rodríguez urement (mass/volume)Ordered By: Mikel Bonilla on 10-19-2024 Calcium [Mass/Vol] 9.7 mg/dL 7.6-11.0 [facility] Serum or plasma creatine kin ase activityOrdered By: Mikel Bonilla on 10-19-2024 CK [Catalytic activity/Vol] 91 U/L 24-195 [facility] Serum or plasma urea nitroge n measurement (mass/volume)Ordered By: Mikel Bonilla on 10-19-2024 Urea nitrogen [Mass/Vol] 24 mg/dL High 4-19 [facility] Sodium levelOrdered By: Mikel Bonilla on 10-19-2024 Sodium [Moles/Vol] 140 mmol/L 133-145 [facility] Squamous epithelial cells de tection in urine sediment by light microscopyOrdered By: Mikel Bonilla on 10-19-2024 Epithelial cells.squamous LM Ql (Urine sed) 0 SEEN /hpf 5-10 [facility] Urinalysis, Completeon 10-19 RBC 0-5 SEEN Normal 0-5 [facility] Comment on above: Order Comment: CLEAN CATCH Performed By: #### L 400.0001 ####[facility] [address] [place], [place], [id number] WBC 0-5 SEEN Normal 0-5 [facility] Comment on above: Order Comment: CLEAN CATCH Performed By: #### L 400.0001 ####[facility] [address] [place], [place], [id number] AMORPHOUS 2+ Normal [facility] Comment on above: Order Comment: CLEAN CATCH Performed By: #### L 400.0001 ####[facility] [address] [place], [address] BACTERIA 0 SEEN Normal None Seen [facility] Comment on above: Order Comment: CLEAN CATCH Performed By: #### L 400.0001 ####[facility] [address] [place], [address] EPI,SQUAMOUS 0 SEEN Normal 5-10 [facility] Comment on above: Order Comment: CLEAN CATCH Performed By: #### L 400.0001 ####[facility] [address] [place], [address] Mucus Ql (Urine sed) 0 SEEN Normal [facility] Comment on above: Order Comment: CLEAN CATCH Performed By: #### L 400.0001 ####[facility] [address] [place] [address] Urine Drug Screen (VISTA)on 10-19-2024 AMPHETAMINES Negative Normal <1000 ng/mL [facility] Comment on above: Performed By: #### L 505.5000 ####[facility] [address] [place] [id number] BARBITIURATES Negative Normal < 200 ng/mL [facility] Comment on above: Performed By: #### L 505.5000 ####[facility] [address] [place] [address] BENZODIAZIPINE Negative Normal < 200 ng/mL [facility] Comment on above: Performed By: #### L 505.5000 ####[facility] [address] [place] [address] BUP Ur Drug Scr Negative Normal < 200 ng/mL [facility] Comment on above: Performed By: #### L 505.5000 ####[facility] [address] [place] [id number] COCAINE Negative Normal < 300 ng/mL [facility] Comment on above: Performed By: #### L 505.5000 ####[facility] [address] [place] [address] Fentanyl Negative Normal [facility] Comment on above: Performed By: #### L 505.5000 ####[facility] [address] [facility] [address] METHADONE Negative Normal < 300 ng/mL [facility] Comment on above: Performed By: #### L 505.5000 ####[facility] [address] [facility] [address] OPIATES Negative Normal < 300 ng/mL [facility] Comment on above: Performed By: #### L 505.5000 ####[facility] [address] [place] [address] OXYCODONE Negative Normal < 100 ng/mL [facility] Comment on above: Performed By: #### L 505.5000 ####[facility] [address] [facility] [address] PCP Negative Normal < 25 ng/mL [facility] Comment on above: Performed By: #### L 505.5000 ####[facility] [address] [facility] [address] THC Negative Normal < 50 ng/mL [facility] Comment on above: Performed By: #### L 505.5000 ####[facility] [address] [place], [address] Urine benzodiazepine levelOr dered By: Desiree Awan on 10-19-2024 Benzodiazepines Ql (U) Negative < 200 ng/mL [facility] Urine clarityOrdered By: Sandro Bonilla on 10-19-2024 Clarity (U) Cloudy Clear [facility] Urine cocaine levelOrdered B y: Desiree Awan on 10-19-2024 Cocaine Ql (U) Negative < 300 ng/mL [facility] Urine color determinationOrd ered By: Mikel Bonilla on 10-19-2024 Color (U) Yellow Yellow [facility] Urine tyshg-1-koonwqnjqoconk abinol (THC) measurementOrdered By: Desiree Awan on 10-19-2024 Cannabinoids Screen Ql (U) Negative < 50 ng/mL [facility] Urine glucose detectionOrder ed By: Mikel Bonilla on 10-19-2024 Glucose Ql (U) Normal mg/dl Normal [facility] Urine leukocyte esterase det ection by dipstickOrdered By: Mikel Bonilla on 10-19-2024 Leukocyte esterase Test strip Ql (U) Negative Negative [facility] Urine pHOrdered By: Mikel Bonilla on 10-19-2024 pH (U) 7.0 [pH] 5.0 - 8.0 [facility] Urine phencyclidine (PCP) de tectionOrdered By: Desiree Awan on 10-19-2024 Phencyclidine Ql (U) Negative < 25 ng/mL [facility] Urine sediment bacteria coun t by microscopy (number/high power field)Ordered By: Mikel Bonilla on 10-19-2024 Bacteria LM.HPF (Urine sed) [#/Area] 0 /[HPF] None Seen [facility] Urine specific gravity measu rementOrdered By: Mikel Bonilla on 10-19-2024 Specific gravity (U) [Rel density] 1.015 1.002-1.030 [facility] Urine urobilinogen measureme ntOrdered By: Mikel Bonilla on 10-19-2024 Urobilinogen Ql (U) Normal mg/dl Normal [facility] Venous blood ammonia measure mentOrdered By: Desiree Awan on 10-19-2024 Venous blood ammonia measurement < 10.0 umol/L Low 11-51 [facility] Vitamin B12on 10-19-2024 Cobalamin (Vitamin B12) [Mass/Vol] 725 pg/mL Normal 180-914 [facility] Comment on above: Performed By: #### L 503.5510, L503.0106 ####[facility] [address] [place], [address] Vitamin B12 ser/plasOrdered By: Desiree Awan on 10-19-2024 Cobalamin (Vitamin B12) [Mass/Vol] 725 pg/mL 180-914 [facility] White blood cell (WBC) count Ordered By: Mikel Bonilla on 10-19-2024 WBC (Bld) [#/Vol] 9.5 10*3/uL 4.4-11.0 [facility] White blood cell countOrdere d By: Mikel Bonilla on 10-19-2024 White blood cell count 0-5 SEEN /hpf 0-5 [facility] Culture, Blood (WB)on 2024 CUB Blood cultures x2, from two different sites No growth in 5 days. Normal [facility] Comment on above: Performed By: #### M 200.1000 ####[facility] [address] [place], [address] Bedside Glucoseon 10-12-2024 FINGERSTICK GLU 128 mg/dL High 74-106 [facility] Comment on above: Result Comment: SAMANTA GEMENT OF PATIENT CARE PER NURSING PROTOCOL Performed By: #### L 501.080 ####[facility] [address] [place], [address] FINGERSTICK GLU 115 mg/dL High 74-106 [facility] Comment on above: Result Comment: SAMANTA GEMENT OF PATIENT CARE PER NURSING PROTOCOL Performed By: #### L 501.080 ####[facility] [address] [place], [address] Discharge Instructionon 09-[address] [facility] Electrocardiogram reportOrde red By: Jone Fishman on 10-12-2024 EKG study [facility] [address] [place] [address] 12 Lead EKG 10/10/24 1429 MR#: [id number] Acct: [id number] Name: JUDI PITTMAN Rep #:[id number] : 1945 79 From: Jone Fishman MD Attending Dr: Dr. Luis Baer MD Status: ADM IN Ordering Dr: Jose Dodd DO Date: 0 10/10/24 Location: [facility]3 Sex: F C Admitted: 10/10/24 Test Reason : CONFUSION Blood Pressure : */* mmHG Vent. Rate : 92 BPM Atrial Rate : 92 BPM P-R Int : 184 ms QRS Dur : 84 ms QT Int : 336 ms P-R-T Axes : 49 -29 54 degrees QTcB Int : 415 ms Normal sinus rhythm Normal ECG Confirmed by RAFAEL TAVERA, JONE ([id number]), script editor APURVA CAMEJO ([id number]) on 57:45:26 AM Referred By: Confirmed By: JONE FISHMAN MD 10/12/24 0745 Date _ Jone Fishman MD CC: Dr. Jose Dodd DO; Dr. Ruddy Cooper MD; Dr. Luis Baer MD~ Signed [facility] Other Phone: Glucose measurement at [facility] deOrdered By: Luis Baer on 10-12-2024 Glucose [Mass/Vol] 128 mg/dL High 74-106 [facility] Comment on above: MANAGEMENT OF PATIEN T CARE PER NURSING PROTOCOL Urine Cultureon 10-12-2024 URC Normal [facility] Comment on above: Performed By: #### M 100.2200 ####[facility] [address] [place], [address] Absolute lymphocyte countOrd ered By: Luis Baer on 10-11-2024 Lymphocytes Auto (Unsp spec) [#/Vol] 1.75 10*3/uL 0.83-4.51 [facility] Absolute neutrophil countOrd ered By: Luis Baer on 10-11-2024 Neutrophils (Bld) [#/Vol] 3.6 10*3/uL 2.0-7.7 [facility] Anion gap in Serum or Plasma Ordered By: Luis Baer on 10-11-2024 Anion gap [Moles/Vol] 12 mmol/L 5-15 [facility] Automated lymphocyte count a s percentage of total leukocytesOrdered By: Luis Baer on 10-11-2024 Lymphocytes/100 WBC Auto (Unsp spec) 28.2 % 19-41 [facility] BUN/creatinine ratioOrdered By: Luis Baer on 10-11-2024 Urea nitrogen/Creatinine [Mass ratio] 20.1 mg/mg High 10- [facility] Basic Metabolic Profile (BMP )on 10-11-2024 BUN/CRE 20.1 RATIO High - [facility] Comment on above: Performed By: #### L 100.0100, L500.2500 ####[facility] [address] [place], [address] Calcium [Mass/Vol] 8.3 mg/dL Normal 7.6-11.0 [facility] Comment on above: Performed By: #### L 100.0100, L500.2500 ####[facility] [address] [place], [address] Chloride [Moles/Vol] 107 mmol/L Normal 98-108 [facility] Comment on above: Performed By: #### L 100.0100, L500.2500 ####[facility] [address] [place], [address] CO2 [Moles/Vol] 20.5 mmol/L Low 21.0-32.0 [facility] Comment on above: Performed By: #### L 100.0100, L500.2500 ####[facility] [address] [place], [address] Creatinine [Mass/Vol] 0.81 mg/dL Normal 0.70-1.20 [facility] Comment on above: Performed By: #### L 100.0100, L500.2500 ####[facility] [address] [place], [address] ECRCL 52.16 ml/min Normal 50-250 [facility] Comment on above: Performed By: #### L 100.0100, L500.2500 ####[facility] [address] [place], [address] GAP 12 Normal 5-15 [facility] Comment on above: Performed By: #### L 100.0100, L500.2500 ####[facility] [address] [place], [address] GFR/1.73 sq M.predicted among non-blacks MDRD (S/P/Bld) [Vol rate/Area] 75 mL/min/{1.73_m2} Normal >60 [facility] Comment on above: Result Comment: mL/m in/1.73m2 CKD-EPI Creatinine Equation (2020) Performed By: #### L 100.0100, L500.2500 ####[facility] [address] [place], [address] Glucose [Mass/Vol] 113 mg/dL High 70-99 [facility] Comment on above: Performed By: #### L 100.0100, L500.2500 ####[facility] [address] [place], [address] Potassium [Moles/Vol] 4.3 mmol/L Normal 3.3-5.1 [facility] Comment on above: Performed By: #### L 100.0100, L500.2500 ####[facility] [address] [place], [address] Sodium [Moles/Vol] 139 mmol/L Normal 133-145 [facility] Comment on above: Performed By: #### L 100.0100, L500.2500 ####[facility] [address] [place], [address] Urea nitrogen [Mass/Vol] 16 mg/dL Normal 4-19 [facility] Comment on above: Performed By: #### L 100.0100, L500.2500 ####[facility] [address] [place], [address] Basophil percentageOrdered B y: Luis Baer on 10-11-2024 Basophils/100 WBC (Bld) 0.5 % 0-1 [facility] Bedside Glucoseon 10-11-2024 FINGERSTICK GLU 158 mg/dL High 74-106 [facility] Comment on above: Result Comment: SAMANTA GEMENT OF PATIENT CARE PER NURSING PROTOCOL Performed By: #### L 501.080 ####[facility] [address] [place], [address] FINGERSTICK GLU 100 mg/dL Normal 74-106 [facility] Comment on above: Result Comment: SAMANTA GEMENT OF PATIENT CARE PER NURSING PROTOCOL Performed By: #### L 501.080 ####[facility] [address] [place], [address] FINGERSTICK GLU 205 mg/dL High 74-106 [facility] Comment on above: Result Comment: SAMANTA GEMENT OF PATIENT CARE PER NURSING PROTOCOL Performed By: #### L 501.080 ####[facility] [address] [place], [address] FINGERSTICK GLU 113 mg/dL High 74-106 [facility] Comment on above: Result Comment: SAMANTA GEMENT OF PATIENT CARE PER NURSING PROTOCOL Performed By: #### L 501.080 ####[facility] [address] [place], [address] CBC W/Diff, Automatedon 06- Absolute Lymph 1.75 X10 3/uL Normal 0.83-4.51 [facility] Comment on above: Performed By: #### L 100.0100, L500.2500 ####[facility] [address] [place], [address] Absolute Neut 3.6 X10 3/uL Normal 2.0-7.7 [facility] Comment on above: Performed By: #### L 100.0100, L500.2500 ####[facility] [address] [place], [address] Basophils/100 WBC (Bld) 0.5 % Normal 0-1 [facility] Comment on above: Performed By: #### L 100.0100, L500.2500 ####[facility] [address] [place], [address] Eosinophils/100 WBC (Bld) 5.2 % High 0-5 [facility] Comment on above: Performed By: #### L 100.0100, L500.2500 ####[facility] [address] [place], [address] Erythrocyte distribution width (RBC) [Ratio] 12.0 % Normal 11.6-14.6 [facility] Comment on above: Performed By: #### L 100.0100, L500.2500 ####[facility] [address] [place], [address] Hematocrit (Bld) [Volume fraction] 36.5 % Low 37-47 [facility] Comment on above: Performed By: #### L 100.0100, L500.2500 ####[facility] [address] [place], [address] Hemoglobin (Bld) [Mass/Vol] 11.9 g/dL Low 12.0-15.0 [facility] Comment on above: Performed By: #### L 100.0100, L500.2500 ####[facility] [address] [place], [address] IG% 0.200 Normal 0.0-0.9 [facility] Comment on above: Result Comment: IG% - Immature Granulocytes (promyelocytes, myelocytes andmetamyelocytes) > 1% indicates that a LEFT SHIFT is Present. Performed By: #### L 100.0100, L500.2500 ####[facility] [address] [place], [address] Lymphocytes/100 WBC (Bld) 28.2 % Normal 19-41 [facility] Comment on above: Performed By: #### L 100.0100, L500.2500 ####[facility] [address] [place], [address] MCH (RBC) [Entitic mass] 30.1 pg Normal 27.0-32.0 [facility] Comment on above: Performed By: #### L 100.0100, L500.2500 ####[facility] [address] [place], [address] MCHC (RBC) [Mass/Vol] 32.6 g/dL Normal 32-36 [facility] Comment on above: Performed By: #### L 100.0100, L500.2500 ####[facility] [address] [place], [address] MCV (RBC) [Entitic vol] 92.2 fL Normal 81-99 [facility] Comment on above: Performed By: #### L 100.0100, L500.2500 ####[facility] [address] [place], [address] Monocytes/100 WBC (Bld) 8.5 % Normal 0-10 [facility] Comment on above: Performed By: #### L 100.0100, L500.2500 ####[facility] [address] [place], [address] Neutrophils/100 WBC (Bld) 57.4 % Normal 47-70 [facility] Comment on above: Performed By: #### L 100.0100, L500.2500 ####[facility] [address] [place], [address] Nucleated RBC (Bld) [#/Vol] 0 10*3/uL Normal 0-5 [facility] Comment on above: Performed By: #### L 100.0100, L500.2500 ####[facility] [address] [place], [address] Platelet mean volume (Bld) [Entitic vol] 8.3 fL Normal 6.2-12.0 [facility] Comment on above: Performed By: #### L 100.0100, L500.2500 ####[facility] [address] [place], [address] Platelets (Bld) [#/Vol] 284 10*3/uL Normal 150-450 [facility] Comment on above: Performed By: #### L 100.0100, L500.2500 ####[facility] [address] [place], [address] RBC (Bld) [#/Vol] 3.96 10*6/uL Low 4.2-5.4 [facility] Comment on above: Performed By: #### L 100.0100, L500.2500 ####[facility] [address] [place], [address] RDW SD 40.9 fl Normal 35.1-43.9 [facility] Comment on above: Performed By: #### L 100.0100, L500.2500 ####[facility] [address] [place], [address] WBC (Bld) [#/Vol] 6.2 10*3/uL Normal 4.4-11.0 [facility] Comment on above: Performed By: #### L 100.0100, L500.2500 ####[facility] [address] [place], [address] Carbon dioxide, total [Moles /volume] in Central venous bloodOrdered By: Luis Baer on 10-11-2024 CO2 [Moles/Vol] 20.5 mmol/L Low 21.0-32.0 [facility] Chloride assayOrdered By: Haley Baer on 10-11-2024 Chloride [Moles/Vol] 107 mmol/L 98-108 [facility] Eosinophil percentageOrdered By: Luis Baer on 10-11-2024 Eosinophils/100 WBC (Bld) 5.2 % High 0-5 [facility] Erythrocyte distribution wid th ratioOrdered By: Luis Baer on 10-11-2024 Erythrocyte distribution width (RBC) [Ratio] 12.0 % 11.6-14.6 [facility] Erythrocyte distribution wid th standard deviationOrdered By: Luis Baer on 10-11-2024 Erythrocyte distribution width (RBC) [Ratio] 40.9 fl 35.1-43.9 [facility] Glomerular filtration rate ( GFR) estimation/1.73 sq m using serum, plasma, or whole bOrdered By: Luis Baer on 10-11-2024 GFR/1.73 sq M.predicted among non-blacks MDRD (S/P/Bld) [Vol rate/Area] 75 mL/min/{1.73_m2} >60 [facility] Comment on above: mL/min/1.73m2 CKD-EP I Creatinine Equation (2020) Hematocrit Auto (Bld) [Volum e fraction]Ordered By: Luis Baer on 10-11-2024 Hematocrit (Bld) [Volume fraction] 36.5 % Low 37-47 [facility] Hemoglobin measurementOrdere d By: Luis Baer on 10-11-2024 Hemoglobin (Bld) [Mass/Vol] 11.9 g/dL Low 12.0-15.0 [facility] Immature granulocytes/100 WB C Auto (Bld)Ordered By: Luis Baer on 10-11-2024 Immature granulocytes/100 WBC (Bld) 0.200 % 0.0-0.9 [facility] Comment on above: IG% - Immature Granu locytes (promyelocytes, myelocytes and metamyelocytes) > 1% indicates that a LEFT SHIFT is Present. MCV (mean corpuscular volume ) determinationOrdered By: Luis Baer on 10-11-2024 MCV (RBC) [Entitic vol] 92.2 fL 81-99 [facility] Mean corpuscular hemoglobin (MCH) determinationOrdered By: Luis Baer on 10-11-2024 MCH (RBC) [Entitic mass] 30.1 pg 27.0-32.0 [facility] Mean corpuscular hemoglobin concentration (MCHC) determinationOrdered By: Luis Baer on 10-11-2024 MCHC (RBC) [Mass/Vol] 32.6 g/dL 32-36 [facility] Mean platelet volume determi nationOrdered By: Luis Baer on 10-11-2024 Platelet mean volume (Bld) [Entitic vol] 8.3 fL 6.2-12.0 [facility] Monocyte percentageOrdered B y: Luis Baer on 10-11-2024 Monocytes/100 WBC (Bld) 8.5 % 0-10 [facility] Neutrophil percentageOrdered By: Luis Baer on 10-11-2024 Neutrophils/100 WBC (Bld) 57.4 % 47-70 [facility] Nucleated red blood cell per centageOrdered By: Luis Baer on 10-11-2024 Nucleated RBC/100 WBC (Bld) [Ratio] 0 % 0-5 [facility] Platelet countOrdered By: Haley Baer on 10-11-2024 Platelets (Bld) [#/Vol] 284 10*3/uL 150-450 [facility] Potassium measurement (mass/ volume)Ordered By: Luis Baer on 10-11-2024 Potassium (Unsp spec) [Mass/Vol] 4.3 mmol/L 3.3-5.1 [facility] RBC Auto (Bld) [#/Vol]Ordere d By: Luis Baer on 10-11-2024 RBC (Bld) [#/Vol] 3.96 10*6/uL Low 4.2-5.4 [facility] Serum creatinine measurement (mass/volume)Ordered By: Luis Baer on 10-11-2024 Creatinine [Mass/Vol] 0.81 mg/dL 0.70-1.20 [facility] Serum glucose measurement (m ass/volume)Ordered By: Luis Baer on 10-11-2024 Glucose [Mass/Vol] 113 mg/dL High 70-99 [facility] Serum or plasma calcium rodríguez urement (mass/volume)Ordered By: Luis Baer on 10-11-2024 Calcium [Mass/Vol] 8.3 mg/dL 7.6-11.0 [facility] Serum or plasma urea nitroge n measurement (mass/volume)Ordered By: Luis Baer on 10-11-2024 Urea nitrogen [Mass/Vol] 16 mg/dL 4-19 [facility] Sodium levelOrdered By: Oliver Baer on 10-11-2024 Sodium [Moles/Vol] 139 mmol/L 133-145 [facility] White blood cell (WBC) count Ordered By: Luis Baer on 10-11-2024 WBC (Bld) [#/Vol] 6.2 10*3/uL 4.4-11.0 [facility] 12 Lead EKGon 10-10-2024 12 Lead EKG Normal [facility] Absolute lymphocyte countOrd ered By: Jose Dodd on 10-10-2024 Lymphocytes Auto (Unsp spec) [#/Vol] 1.47 10*3/uL 0.83-4.51 [facility] Absolute neutrophil countOrd ered By: Jose Dodd on 10-10-2024 Neutrophils (Bld) [#/Vol] 3.9 10*3/uL 2.0-7.7 [facility] Amorphous sediment detection in urine sediment by light microscopyOrdered By: Jose Dodd on 10-10-2024 Amorphous sediment LM Ql (Urine sed) 3+ [facility] Anion gap in Serum or Plasma Ordered By: Jose Dodd on 10-10-2024 Anion gap [Moles/Vol] 11 mmol/L 5-15 [facility] Automated lymphocyte count a s percentage of total leukocytesOrdered By: Jose Dodd on 10-10-2024 Lymphocytes/100 WBC Auto (Unsp spec) 23.5 % 19-41 [facility] BUN/creatinine ratioOrdered By: Jose Dodd on 10-10-2024 Urea nitrogen/Creatinine [Mass ratio] 19.9 mg/mg 10-20 [facility] Basic Metabolic Profile (BMP )on 10-10-2024 BUN/CRE 19.9 RATIO Normal - [facility] Comment on above: Performed By: #### L 500.2500, L100.0100, L503.6005 ####[facility] [address] [place], [address] Calcium [Mass/Vol] 9.1 mg/dL Normal 7.6-11.0 [facility] Comment on above: Performed By: #### L 500.2500, L100.0100, L503.6005 ####[facility] [address] [place], [address] Chloride [Moles/Vol] 103 mmol/L Normal 98-108 [facility] Comment on above: Performed By: #### L 500.2500, L100.0100, L503.6005 ####[facility] [address] [place], [address] CO2 [Moles/Vol] 22.2 mmol/L Normal 21.0-32.0 [facility] Comment on above: Performed By: #### L 500.2500, L100.0100, L503.6005 ####[facility] [address] [place], [address] Creatinine [Mass/Vol] 0.85 mg/dL Normal 0.70-1.20 [facility] Comment on above: Performed By: #### L 500.2500, L100.0100, L503.6005 ####[facility] [address] [place], [address] ECRCL 50.87 ml/min Normal 50-250 [facility] Comment on above: Performed By: #### L 500.2500, L100.0100, L503.6005 ####[facility] [address] [place], [address] GAP 11 Normal 5-15 [facility] Comment on above: Performed By: #### L 500.2500, L100.0100, L503.6005 ####[facility] [address] [place], [address] GFR/1.73 sq M.predicted among non-blacks MDRD (S/P/Bld) [Vol rate/Area] 70 mL/min/{1.73_m2} Normal >60 [facility] Comment on above: Result Comment: mL/m in/1.73m2 CKD-EPI Creatinine Equation (2020) Performed By: #### L 500.2500, L100.0100, L503.6005 ####[facility] [address] [place], [address] Glucose [Mass/Vol] 194 mg/dL High 70-99 [facility] Comment on above: Performed By: #### L 500.2500, L100.0100, L503.6005 ####[facility] [address] [place], [address] Potassium [Moles/Vol] 4.3 mmol/L Normal 3.3-5.1 [facility] Comment on above: Performed By: #### L 500.2500, L100.0100, L503.6005 ####[facility] [address] [place], [address] Sodium [Moles/Vol] 136 mmol/L Normal 133-145 [facility] Comment on above: Performed By: #### L 500.2500, L100.0100, L503.6005 ####[facility] [address] [place], [address] Urea nitrogen [Mass/Vol] 17 mg/dL Normal 4-19 [facility] Comment on above: Performed By: #### L 500.2500, L100.0100, L503.6005 ####[facility] [address] [place], [address] Basophil percentageOrdered B y: Jose Dodd on 10-10-2024 Basophils/100 WBC (Bld) 0.8 % 0-1 [facility] Bedside Glucoseon 10-10-2024 FINGERSTICK GLU 159 mg/dL High 74-106 [facility] Comment on above: Result Comment: SAMANTA CHEEMA OF PATIENT CARE PER NURSING PROTOCOL Performed By: #### L 501.080 ####[facility] [address] [place], [address] Bilirubin Test strip Ql (U)O rdered By: Jose Dodd on 10-10-2024 Bilirubin Ql (U) Negative Negative [facility] Blood cultureOrdered By: Tati Dodd on 10-10-2024 Bacteria identified Cx Nom (Bld) No growth in 5 days. [facility] Bacteria identified Cx Nom (Bld) No growth in 5 days. [facility] Brain/Head without Contrasto n 10-10-2024 Brain/Head without Contrast Normal [facility] CBC W/Diff, Automatedon 09-26 Absolute Lymph 1.47 X10 3/uL Normal 0.83-4.51 [facility] Comment on above: Performed By: #### L 500.2500, L100.0100, L503.6005 ####[facility] [address] [place], [address] Absolute Neut 3.9 X10 3/uL Normal 2.0-7.7 [facility] Comment on above: Performed By: #### L 500.2500, L100.0100, L503.6005 ####[facility] [address] [place], [address] Basophils/100 WBC (Bld) 0.8 % Normal 0-1 [facility] Comment on above: Performed By: #### L 500.2500, L100.0100, L503.6005 ####[facility] [address] [place], [address] Eosinophils/100 WBC (Bld) 3.8 % Normal 0-5 [facility] Comment on above: Performed By: #### L 500.2500, L100.0100, L503.6005 ####[facility] [address] [place], [address] Erythrocyte distribution width (RBC) [Ratio] 12.0 % Normal 11.6-14.6 [facility] Comment on above: Performed By: #### L 500.2500, L100.0100, L503.6005 ####[facility] [address] [place], [address] Hematocrit (Bld) [Volume fraction] 39.8 % Normal 37-47 [facility] Comment on above: Performed By: #### L 500.2500, L100.0100, L503.6005 ####[facility] [address] [place], [address] Hemoglobin (Bld) [Mass/Vol] 13.2 g/dL Normal 12.0-15.0 [facility] Comment on above: Performed By: #### L 500.2500, L100.0100, L503.6005 ####[facility] [address] [place], [address] IG% 0.300 Normal 0.0-0.9 [facility] Comment on above: Result Comment: IG% - Immature Granulocytes (promyelocytes, myelocytes andmetamyelocytes) > 1% indicates that a LEFT SHIFT is Present. Performed By: #### L 500.2500, L100.0100, L503.6005 ####[facility] [address] [place], [address] Lymphocytes/100 WBC (Bld) 23.5 % Normal 19-41 [facility] Comment on above: Performed By: #### L 500.2500, L100.0100, L503.6005 ####[facility] [address] [place], [address] MCH (RBC) [Entitic mass] 30.5 pg Normal 27.0-32.0 [facility] Comment on above: Performed By: #### L 500.2500, L100.0100, L503.6005 ####[facility] [address] [place], [address] MCHC (RBC) [Mass/Vol] 33.2 g/dL Normal 32-36 [facility] Comment on above: Performed By: #### L 500.2500, L100.0100, L503.6005 ####[facility] [address] [place], [address] MCV (RBC) [Entitic vol] 91.9 fL Normal 81-99 [facility] Comment on above: Performed By: #### L 500.2500, L100.0100, L503.6005 ####[facility] [address] [place], [address] Monocytes/100 WBC (Bld) 9.3 % Normal 0-10 [facility] Comment on above: Performed By: #### L 500.2500, L100.0100, L503.6005 ####[facility] [address] [place], [address] Neutrophils/100 WBC (Bld) 62.3 % Normal 47-70 [facility] Comment on above: Performed By: #### L 500.2500, L100.0100, L503.6005 ####[facility] [address] [place], [address] Nucleated RBC (Bld) [#/Vol] 0 10*3/uL Normal 0-5 [facility] Comment on above: Performed By: #### L 500.2500, L100.0100, L503.6005 ####[facility] [address] [place], [address] Platelet mean volume (Bld) [Entitic vol] 8.3 fL Normal 6.2-12.0 [facility] Comment on above: Performed By: #### L 500.2500, L100.0100, L503.6005 ####[facility] [address] [place], [address] Platelets (Bld) [#/Vol] 323 10*3/uL Normal 150-450 [facility] Comment on above: Performed By: #### L 500.2500, L100.0100, L503.6005 ####[facility] [address] [place], [address] RBC (Bld) [#/Vol] 4.33 10*6/uL Normal 4.2-5.4 [facility] Comment on above: Performed By: #### L 500.2500, L100.0100, L503.6005 ####[facility] [address] [place], [address] RDW SD 40.5 fl Normal 35.1-43.9 [facility] Comment on above: Performed By: #### L 500.2500, L100.0100, L503.6005 ####[facility] [address] [place], [address] WBC (Bld) [#/Vol] 6.3 10*3/uL Normal 4.4-11.0 [facility] Comment on above: Performed By: #### L 500.2500, L100.0100, L503.6005 ####[facility] [address] [place], [address] Carbon dioxide, total [Moles /volume] in Central venous bloodOrdered By: Jose Dodd on 10-10-2024 CO2 [Moles/Vol] 22.2 mmol/L 21.0-32.0 [facility] Chest PA and Lateralon 10-10 Chest PA and Lateral Normal [facility] Chloride assayOrdered By: Eusebia Dodd on 10-10-2024 Chloride [Moles/Vol] 103 mmol/L 98-108 [facility] Emergency Department Summary on 10-10-2024 Emergency Department Summary Normal [facility] Eosinophil percentageOrdered By: Jose Dodd on 10-10-2024 Eosinophils/100 WBC (Bld) 3.8 % 0-5 [facility] Erythrocyte distribution wid th ratioOrdered By: Jose Dodd on 10-10-2024 Erythrocyte distribution width (RBC) [Ratio] 12.0 % 11.6-14.6 [facility] Erythrocyte distribution wid th standard deviationOrdered By: Jose Dodd on 10-10-2024 Erythrocyte distribution width (RBC) [Ratio] 40.5 fl 35.1-43.9 [facility] Glomerular filtration rate ( GFR) estimation/1.73 sq m using serum, plasma, or whole bOrdered By: Jose Dodd on 10-10-2024 GFR/1.73 sq M.predicted among non-blacks MDRD (S/P/Bld) [Vol rate/Area] 70 mL/min/{1.73_m2} >60 [facility] Comment on above: mL/min/1.73m2 CKD-EP I Creatinine Equation (2020) H AND P Exam - [facility] 10-10-2024 H&P Exam - Hospitalist Normal [facility] Hematocrit Auto (Bld) [Volum e fraction]Ordered By: Jose Dodd on 10-10-2024 Hematocrit (Bld) [Volume fraction] 39.8 % 37-47 [facility] Hemoglobin measurementOrdere d By: Jose oDdd on 10-10-2024 Hemoglobin (Bld) [Mass/Vol] 13.2 g/dL 12.0-15.0 [facility] Immature granulocytes/100 WB C Auto (Bld)Ordered By: Jose Dodd on 10-10-2024 Immature granulocytes/100 WBC (Bld) 0.300 % 0.0-0.9 [facility] Comment on above: IG% - Immature Granu locytes (promyelocytes, myelocytes and metamyelocytes) > 1% indicates that a LEFT SHIFT is Present. Influenza virus A and B and SARS-CoV-2 (COVID-19) and Respiratory syncytial virus RNAOrdered By: Jose Dodd on 10-10-2024 SARS-CoV-2 (COVID-19) RNA DUSTIN+probe Ql (Unsp spec) [facility] Ketones Test strip Ql (U)Ord ered By: Jose Dodd on 10-10-2024 Ketones Ql (U) Negative Negative [facility] L499.0042on 10-10-2024 Trop T High Sen 15 ng/L High <=14 [facility] Comment on above: Performed By: #### L 499.0042 ####[facility] [address] [place], [address] L499.0043on 10-10-2024 Trop T High Sen 13 ng/L Normal <=14 [facility] Comment on above: Performed By: #### L 499.0043 ####[facility] [address] [place], [address] L501.4021on 10-10-2024 Trop T High Sen 15 ng/L High <=14 [facility] Comment on above: Performed By: #### L 501.4021 ####[facility] [address] [place], [address] Lactic Acidon 10-10-2024 Lactate [Moles/Vol] 1.5 mmol/L Normal 0.0-2.0 [facility] Comment on above: Performed By: #### L 503.6005 ####[facility] [address] [place], [address] Lactate [Moles/Vol] 2.6 mmol/L Invalid Interpretation Code 0.0-2.0 [facility] Comment on above: Order Comment: Y Result Comment: Crit ical Result(s) Called at: 1525 by: TO CORDERO??Results read back by same. Performed By: #### L 500.2500, L100.0100, L503.6005 ####[facility] [address] [place], [address] Lactic acid measurementOrder ed By: Jose Dodd on 10-10-2024 Lactate [Moles/Vol] 1.5 mmol/L 0.0-2.0 [facility] Lactate [Moles/Vol] 2.6 mmol/L High 0.0-2.0 [facility] Comment on above: Critical Result(s) C alled at: 1525 by: TO OLIVIER TO [facility] Results read back by same. M100.678on 10-10-2024 M100.678 Pending SARS-CoV-2 (COVID 19) Negative INFLUENZA A Negative INFLUENZA B Negative RSV PCR Negative Normal [facility] Comment on above: Performed By: #### M 100.678, L400.0001 ####[facility] [address] [place], [address] MCV (mean corpuscular volume ) determinationOrdered By: Jose Dodd on 10-10-2024 MCV (RBC) [Entitic vol] 91.9 fL 81-99 [facility] Mean corpuscular hemoglobin (MCH) determinationOrdered By: Jose Dodd on 10-10-2024 MCH (RBC) [Entitic mass] 30.5 pg 27.0-32.0 [facility] Mean corpuscular hemoglobin concentration (MCHC) determinationOrdered By: Jose Dodd on 10-10-2024 MCHC (RBC) [Mass/Vol] 33.2 g/dL 32-36 [facility] Mean platelet volume determi nationOrdered By: Jose Dodd on 10-10-2024 Platelet mean volume (Bld) [Entitic vol] 8.3 fL 6.2-12.0 [facility] Microscopic analysis of urin e for red blood cells (RBC)Ordered By: Jose Dodd on 10-10-2024 Microscopic analysis of urine for red blood cells (RBC) 0 SEEN /hpf 0-5 [facility] Monocyte percentageOrdered B y: Jose Dodd on 10-10-2024 Monocytes/100 WBC (Bld) 9.3 % 0-10 [facility] Mucus LM Ql (Urine sed)Order ed By: Jose Dodd on 10-10-2024 Mucus Ql (Urine sed) 0 SEEN /hpf [facility] Neutrophil percentageOrdered By: Jose Dodd on 10-10-2024 Neutrophils/100 WBC (Bld) 62.3 % 47-70 [facility] Nitrite Test strip Ql (U)Ord ered By: Jose Dodd on 10-10-2024 Nitrite Ql (U) Positive High Negative [facility] Nucleated red blood cell per centageOrdered By: Jose Dodd on 10-10-2024 Nucleated RBC/100 WBC (Bld) [Ratio] 0 % 0-5 [facility] Platelet countOrdered By: Eusebia Dodd on 10-10-2024 Platelets (Bld) [#/Vol] 323 10*3/uL 150-450 [facility] Potassium measurement (mass/ volume)Ordered By: Jose Dodd on 10-10-2024 Potassium (Unsp spec) [Mass/Vol] 4.3 mmol/L 3.3-5.1 [facility] Protein Test strip Ql (U)Ord ered By: Jose Dodd on 10-10-2024 Protein Ql (U) 15 mg/dl High Negative [facility] RBC Auto (Bld) [#/Vol]Ordere d By: Jose Dodd on 10-10-2024 RBC (Bld) [#/Vol] 4.33 10*6/uL 4.2-5.4 [facility] Serum creatinine measurement (mass/volume)Ordered By: Jose Dodd on 10-10-2024 Creatinine [Mass/Vol] 0.85 mg/dL 0.70-1.20 [facility] Serum glucose measurement (m ass/volume)Ordered By: Jose Dodd on 10-10-2024 Glucose [Mass/Vol] 194 mg/dL High 70-99 [facility] Serum or plasma calcium rodríguez urement (mass/volume)Ordered By: Jose Dodd on 10-10-2024 Calcium [Mass/Vol] 9.1 mg/dL 7.6-11.0 [facility] Serum or plasma urea nitroge n measurement (mass/volume)Ordered By: Jose Dodd on 10-10-2024 Urea nitrogen [Mass/Vol] 17 mg/dL 4-19 [facility] Sodium levelOrdered By: Jose Dodd on 10-10-2024 Sodium [Moles/Vol] 136 mmol/L 133-145 [facility] Squamous epithelial cells de tection in urine sediment by light microscopyOrdered By: Jose Dodd on 10-10-2024 Epithelial cells.squamous LM Ql (Urine sed) 0-5 SEEN /hpf 5-10 [facility] Troponin T.cardiac [Mass/vol ume] in Serum or Plasma by High sensitivity methodOrdered By: Jose Dodd on 10-10-2024 Troponin T.cardiac High sensitivity method [Mass/Vol] 13 ng/L <14 [facility] Troponin T.cardiac High sensitivity method [Mass/Vol] 15 ng/L High <14 [facility] Troponin T.cardiac High sensitivity method [Mass/Vol] 15 ng/L High <14 [facility] Urinalysis, Completeon 10-10 AMORPHOUS 3+ Normal [facility] Comment on above: Order Comment: CLEAN CATCH Performed By: #### M 100.678, L400.0001 ####[facility] [address] [place], [address] BACTERIA 4+ /hpf Normal None Seen [facility] Comment on above: Order Comment: CLEAN CATCH Performed By: #### M 100.678, L400.0001 ####[facility] [address] [place], [address] CAST,COARSE GR 0-5 SEEN Normal 0-5 /lpf [facility] Comment on above: Order Comment: CLEAN CATCH Performed By: #### M 100.678, L400.0001 ####[facility] [address] [place], [address] EPI,SQUAMOUS 0-5 SEEN Normal 5-10 [facility] Comment on above: Order Comment: CLEAN CATCH Performed By: #### M 100.678, L400.0001 ####[facility] [address] [place], [address] WBC 5-10 SEEN Normal 0-5 [facility] Comment on above: Order Comment: CLEAN CATCH Performed By: #### M 100.678, L400.0001 ####[facility] [address] [place], [address] Mucus Ql (Urine sed) 0 SEEN Normal [facility] Comment on above: Order Comment: CLEAN CATCH Performed By: #### M 100.678, L400.0001 ####[facility] [address] [place], [address] RBC 0 SEEN Normal 0-5 [facility] Comment on above: Order Comment: CLEAN CATCH Performed By: #### M 100.678, L400.0001 ####[facility] [address] [place], [address] Urine clarityOrdered By: Tati Dodd on 10-10-2024 Clarity (U) Cloudy Clear [facility] Urine coarse granular cast d etectionOrdered By: Jose Dodd on 10-10-2024 Coarse Granular Casts LM Ql (Urine sed) 0-5 SEEN /lpf 0-5 /lpf [facility] Urine color determinationOrd ered By: Jose Dodd on 10-10-2024 Color (U) Yellow Yellow [facility] Urine cultureOrdered By: Tati Dodd on 10-10-2024 Bacteria identified Cx Nom (U) Escherichia coli Abnormal [facility] Urine glucose detectionOrder ed By: Jose Dodd on 10-10-2024 Glucose Ql (U) Normal mg/dl Normal [facility] Urine leukocyte esterase det ection by dipstickOrdered By: Jose Dodd on 10-10-2024 Leukocyte esterase Test strip Ql (U) 100 /ul High Negative [facility] Urine pHOrdered By: Jose montes on 10-10-2024 pH (U) 7.0 [pH] 5.0 - 8.0 [facility] Urine sediment bacteria coun t by microscopy (number/high power field)Ordered By: Jose Dodd on 10-10-2024 Bacteria LM.HPF (Urine sed) [#/Area] 4 /[HPF] None Seen [facility] Urine specific gravity measu rementOrdered By: Jose Dodd on 10-10-2024 Specific gravity (U) [Rel density] 1.015 1.002-1.030 [facility] Urine urobilinogen measureme ntOrdered By: Jose Dodd on 10-10-2024 Urobilinogen Ql (U) Normal mg/dl Normal [facility] White blood cell (WBC) count Ordered By: Jose Dodd on 10-10-2024 WBC (Bld) [#/Vol] 6.3 10*3/uL 4.4-11.0 [facility] White blood cell countOrdere d By: Jose Dodd on 10-10-2024 White blood cell count 5-10 SEEN /hpf 0-5 [facility] Absolute lymphocyte countOrd ered By: Yossi Heredia on 09-08-2024 Lymphocytes Auto (Unsp spec) [#/Vol] 1.90 10*3/uL 0.83-4.51 [facility] Absolute neutrophil countOrd ered By: Yossi Heredia on 09-08-2024 Neutrophils (Bld) [#/Vol] 3.6 10*3/uL 2.0-7.7 [facility] Anion gap in Serum or Plasma Ordered By: Yossi Heredia on 09-08-2024 Anion gap [Moles/Vol] 13 mmol/L 09-09 [facility] Automated lymphocyte count a s percentage of total leukocytesOrdered By: Yossi Heredia on 09-08-2024 Lymphocytes/100 WBC Auto (Unsp spec) 29.8 % 19-41 [facility] BUN/creatinine ratioOrdered By: Yossi Heredia on 09-08-2024 Urea nitrogen/Creatinine [Mass ratio] 22.1 mg/mg High - [facility] Basic Metabolic Profile (BMP )on 09-08-2024 BUN/CRE 22.1 RATIO High 02-14 [facility] Comment on above: Performed By: #### L 100.0100, L500.2500 ####[facility] [address] [place], [place], [address] Calcium [Mass/Vol] 9.4 mg/dL Normal 7.6-11.0 [facility] Comment on above: Performed By: #### L 100.0100, L500.2500 ####[facility] [address] [place], [address] Chloride [Moles/Vol] 105 mmol/L Normal 98-108 [facility] Comment on above: Performed By: #### L 100.0100, L500.2500 ####[facility] [address] [place], [address] CO2 [Moles/Vol] 20.0 mmol/L Low 21.0-32.0 [facility] Comment on above: Performed By: #### L 100.0100, L500.2500 ####[facility] [address] [place], [address] Creatinine [Mass/Vol] 0.88 mg/dL Normal 0.70-1.20 [facility] Comment on above: Performed By: #### L 100.0100, L500.2500 ####[facility] [address] [place], [address] ECRCL 48.64 ml/min Low 50-250 [facility] Comment on above: Performed By: #### L 100.0100, L500.2500 ####[facility] [address] [place], [address] GAP 13 Normal 5-15 [facility] Comment on above: Performed By: #### L 100.0100, L500.2500 ####[facility] [address] [place], [address] GFR/1.73 sq M.predicted among non-blacks MDRD (S/P/Bld) [Vol rate/Area] 67 mL/min/{1.73_m2} Normal >60 [facility] Comment on above: Result Comment: mL/m in/1.73m2 CKD-EPI Creatinine Equation (2020) Performed By: #### L 100.0100, L500.2500 ####[facility] [address] [place], [address] Glucose [Mass/Vol] 119 mg/dL High 70-99 [facility] Comment on above: Performed By: #### L 100.0100, L500.2500 ####[facility] [address] [place], [address] Potassium [Moles/Vol] 4.6 mmol/L Normal 3.3-5.1 [facility] Comment on above: Result Comment: Hemo lysis present, Results??could be affected.?? Performed By: #### L 100.0100, L500.2500 ####[facility] [address] [place], [address] Sodium [Moles/Vol] 138 mmol/L Normal 133-145 [facility] Comment on above: Performed By: #### L 100.0100, L500.2500 ####[facility] [address] [place], [address] Urea nitrogen [Mass/Vol] 20 mg/dL High 4-19 [facility] Comment on above: Performed By: #### L 100.0100, L500.2500 ####[facility] [address] [place], [address] Basophil percentageOrdered B y: Yossi Heredia on 09-08-2024 Basophils/100 WBC (Bld) 1.1 % High 0-1 [facility] CBC W/Diff, Automatedon 08-26 Absolute Lymph 1.90 X10 3/uL Normal 0.83-4.51 [facility] Comment on above: Performed By: #### L 100.0100, L500.2500 ####[facility] [address] [place], [address] Absolute Neut 3.6 X10 3/uL Normal 2.0-7.7 [facility] Comment on above: Performed By: #### L 100.0100, L500.2500 ####[facility] [address] [place], [address] Basophils/100 WBC (Bld) 1.1 % High 0-1 [facility] Comment on above: Performed By: #### L 100.0100, L500.2500 ####[facility] [address] [place], [address] Eosinophils/100 WBC (Bld) 5.0 % Normal 0-5 [facility] Comment on above: Performed By: #### L 100.0100, L500.2500 ####[facility] [address] [place], [address] Erythrocyte distribution width (RBC) [Ratio] 12.4 % Normal 11.6-14.6 [facility] Comment on above: Performed By: #### L 100.0100, L500.2500 ####[facility] [address] [place], [address] Hematocrit (Bld) [Volume fraction] 39.3 % Normal 37-47 [facility] Comment on above: Performed By: #### L 100.0100, L500.2500 ####[facility] [address] [place], [address] Hemoglobin (Bld) [Mass/Vol] 13.0 g/dL Normal 12.0-15.0 [facility] Comment on above: Performed By: #### L 100.0100, L500.2500 ####[facility] [address] [place], [address] IG% 0.300 Normal 0.0-0.9 [facility] Comment on above: Result Comment: IG% - Immature Granulocytes (promyelocytes, myelocytes andmetamyelocytes) > 1% indicates that a LEFT SHIFT is Present. Performed By: #### L 100.0100, L500.2500 ####[facility] [address] [place], [address] Lymphocytes/100 WBC (Bld) 29.8 % Normal 19-41 [facility] Comment on above: Performed By: #### L 100.0100, L500.2500 ####[facility] [address] [place], [address] MCH (RBC) [Entitic mass] 30.3 pg Normal 27.0-32.0 [facility] Comment on above: Performed By: #### L 100.0100, L500.2500 ####[facility] [address] [place], [address] MCHC (RBC) [Mass/Vol] 33.1 g/dL Normal 32-36 [facility] Comment on above: Performed By: #### L 100.0100, L500.2500 ####[facility] [address] [place], [address] MCV (RBC) [Entitic vol] 91.6 fL Normal 81-99 [facility] Comment on above: Performed By: #### L 100.0100, L500.2500 ####[facility] [address] [place], [address] Monocytes/100 WBC (Bld) 7.8 % Normal 0-10 [facility] Comment on above: Performed By: #### L 100.0100, L500.2500 ####[facility] [address] [place], [address] Neutrophils/100 WBC (Bld) 56.0 % Normal 47-70 [facility] Comment on above: Performed By: #### L 100.0100, L500.2500 ####[facility] [address] [place], [address] Nucleated RBC (Bld) [#/Vol] 0 10*3/uL Normal 0-5 [facility] Comment on above: Performed By: #### L 100.0100, L500.2500 ####[facility] [address] [place], [address] Platelet mean volume (Bld) [Entitic vol] 8.8 fL Normal 6.2-12.0 [facility] Comment on above: Performed By: #### L 100.0100, L500.2500 ####[facility] [address] [place], [address] Platelets (Bld) [#/Vol] 347 10*3/uL Normal 150-450 [facility] Comment on above: Performed By: #### L 100.0100, L500.2500 ####[facility] [address] [place], [address] RBC (Bld) [#/Vol] 4.29 10*6/uL Normal 4.2-5.4 [facility] Comment on above: Performed By: #### L 100.0100, L500.2500 ####[facility] [address] [place], [address] RDW SD 41.1 fl Normal 35.1-43.9 [facility] Comment on above: Performed By: #### L 100.0100, L500.2500 ####[facility] [address] [place], [address] WBC (Bld) [#/Vol] 6.4 10*3/uL Normal 4.4-11.0 [facility] Comment on above: Performed By: #### L 100.0100, L500.2500 ####[facility] [address] [place], [address] Carbon dioxide, total [Moles /volume] in Central venous bloodOrdered By: Yossi Heredia on 09-08-2024 CO2 [Moles/Vol] 20.0 mmol/L Low 21.0-32.0 [facility] Chloride assayOrdered By: Elder Heredia on 09-08-2024 Chloride [Moles/Vol] 105 mmol/L 98-108 [facility] Emergency Department Summary on 09-08-2024 Emergency Department Summary Normal [facility] Eosinophil percentageOrdered By: Yossi Heredia on 09-08-2024 Eosinophils/100 WBC (Bld) 5.0 % 0-5 [facility] Erythrocyte distribution wid th ratioOrdered By: Yossi Heredia on 09-08-2024 Erythrocyte distribution width (RBC) [Ratio] 12.4 % 11.6-14.6 [facility] Erythrocyte distribution wid th standard deviationOrdered By: Yossi Heredia on 09-08-2024 Erythrocyte distribution width (RBC) [Ratio] 41.1 fl 35.1-43.9 [facility] Glomerular filtration rate ( GFR) estimation/1.73 sq m using serum, plasma, or whole bOrdered By: Yossi Heredia on 09-08-2024 GFR/1.73 sq M.predicted among non-blacks MDRD (S/P/Bld) [Vol rate/Area] 67 mL/min/{1.73_m2} >60 [facility] Comment on above: mL/min/1.73m2 CKD-EP I Creatinine Equation (2020) Hematocrit Auto (Bld) [Volum e fraction]Ordered By: Yossi Heredia on 09-08-2024 Hematocrit (Bld) [Volume fraction] 39.3 % 37-47 [facility] Hemoglobin measurementOrdere d By: Yossi Heredia on 09-08-2024 Hemoglobin (Bld) [Mass/Vol] 13.0 g/dL 12.0-15.0 [facility] Immature granulocytes/100 WB C Auto (Bld)Ordered By: Yossi Heredia on 09-08-2024 Immature granulocytes/100 WBC (Bld) 0.300 % 0.0-0.9 [facility] Comment on above: IG% - Immature Granu locytes (promyelocytes, myelocytes and metamyelocytes) > 1% indicates that a LEFT SHIFT is Present. MCV (mean corpuscular volume ) determinationOrdered By: Yossi Heredia on 09-08-2024 MCV (RBC) [Entitic vol] 91.6 fL 81-99 [facility] Mean corpuscular hemoglobin (MCH) determinationOrdered By: Yossi Heredia on 09-08-2024 MCH (RBC) [Entitic mass] 30.3 pg 27.0-32.0 [facility] Mean corpuscular hemoglobin concentration (MCHC) determinationOrdered By: Yossi Heredia on 09-08-2024 MCHC (RBC) [Mass/Vol] 33.1 g/dL 32-36 [facility] Mean platelet volume determi nationOrdered By: Yossi Heredia on 09-08-2024 Platelet mean volume (Bld) [Entitic vol] 8.8 fL 6.2-12.0 [facility] Monocyte percentageOrdered B y: Yossi Heredia on 09-08-2024 Monocytes/100 WBC (Bld) 7.8 % 0-10 [facility] Neutrophil percentageOrdered By: Yossi Heredia on 09-08-2024 Neutrophils/100 WBC (Bld) 56.0 % 47-70 [facility] Nucleated red blood cell per centageOrdered By: Yossi Heredia on 09-08-2024 Nucleated RBC/100 WBC (Bld) [Ratio] 0 % 0-5 [facility] Platelet countOrdered By: Elder Heredia on 09-08-2024 Platelets (Bld) [#/Vol] 347 10*3/uL 150-450 [facility] Potassium measurement (mass/ volume)Ordered By: Yossi Heredia on 09-08-2024 Potassium (Unsp spec) [Mass/Vol] 4.6 mmol/L 3.3-5.1 [facility] Comment on above: Hemolysis present, R esults could be affected. RBC Auto (Bld) [#/Vol]Ordere d By: Yossi Heredia on 09-08-2024 RBC (Bld) [#/Vol] 4.29 10*6/uL 4.2-5.4 [facility] Serum creatinine measurement (mass/volume)Ordered By: Yossi Heredia on 09-08-2024 Creatinine [Mass/Vol] 0.88 mg/dL 0.70-1.20 [facility] Serum glucose measurement (m ass/volume)Ordered By: Yossi Heredia on 09-08-2024 Glucose [Mass/Vol] 119 mg/dL High 70-99 [facility] Serum or plasma calcium rodríguez urement (mass/volume)Ordered By: Yossi Heredia on 09-08-2024 Calcium [Mass/Vol] 9.4 mg/dL 7.6-11.0 [facility] Serum or plasma urea nitroge n measurement (mass/volume)Ordered By: Yossi Heredia on 09-08-2024 Urea nitrogen [Mass/Vol] 20 mg/dL High 19 [facility] Sodium levelOrdered By: Yossi Heredia on 09-08-2024 Sodium [Moles/Vol] 138 mmol/L 133-145 [facility] White blood cell (WBC) count Ordered By: Yossi Heredia on 09-08-2024 WBC (Bld) [#/Vol] 6.4 10*3/uL 4.4-11.0 [facility] Anion gap in Serum or Plasma Ordered By: Veto Lynne on 08-30-2024 Anion gap [Moles/Vol] 12 mmol/L 5- [facility] BUN/creatinine ratioOrdered By: Veto Lynne on 08-30-2024 Urea nitrogen/Creatinine [Mass ratio] 25.5 mg/mg High 02-14 [facility] Basic Metabolic Profile (BMP )on 08-30-2024 BUN/CRE 25.5 RATIO High 02-14 [facility] Comment on above: Performed By: #### L 500.2500 ####[facility] [address] [place], [address] Calcium [Mass/Vol] 8.9 mg/dL Normal 7.6-11.0 [facility] Comment on above: Performed By: #### L 500.2500 ####[facility] [address] [place], [address] Chloride [Moles/Vol] 107 mmol/L Normal 98-108 [facility] Comment on above: Performed By: #### L 500.2500 ####[facility] [address] [place], [address] CO2 [Moles/Vol] 19.7 mmol/L Low 21.0-32.0 [facility] Comment on above: Performed By: #### L 500.2500 ####[facility] [address] [place], [address] Creatinine [Mass/Vol] 0.87 mg/dL Normal 0.70-1.20 [facility] Comment on above: Performed By: #### L 500.2500 ####[facility] [address] [place], [address] ECRCL 49.17 ml/min Low 50-250 [facility] Comment on above: Performed By: #### L 500.2500 ####[facility] [address] [place], [address] GAP 12 Normal 5-15 [facility] Comment on above: Performed By: #### L 500.2500 ####[facility] [address] [place], [address] GFR/1.73 sq M.predicted among non-blacks MDRD (S/P/Bld) [Vol rate/Area] 68 mL/min/{1.73_m2} Normal >60 [facility] Comment on above: Result Comment: mL/m in/1.73m2 CKD-EPI Creatinine Equation (2020) Performed By: #### L 500.2500 ####[facility] [address] [place], [address] Glucose [Mass/Vol] 132 mg/dL High 70-99 [facility] Comment on above: Performed By: #### L 500.2500 ####[facility] [address] [place], [address] Potassium [Moles/Vol] 4.2 mmol/L Normal 3.3-5.1 [facility] Comment on above: Performed By: #### L 500.2500 ####[facility] [address] [place], [address] Sodium [Moles/Vol] 138 mmol/L Normal 133-145 [facility] Comment on above: Performed By: #### L 500.2500 ####[facility] [address] [place], [address] Urea nitrogen [Mass/Vol] 22 mg/dL High 4-19 [facility] Comment on above: Performed By: #### L 500.2500 ####[facility] [address] [place], [address] CBC-Complete Blood Cnt No Di ffon 08-30-2024 Erythrocyte distribution width (RBC) [Ratio] 12.6 % Normal 11.6-14.6 [facility] Comment on above: Performed By: #### L 100.0500 ####[facility] [address] [place], [address] Hematocrit (Bld) [Volume fraction] 41.9 % Normal 37-47 [facility] Comment on above: Performed By: #### L 100.0500 ####[facility] [address] [place], [address] Hemoglobin (Bld) [Mass/Vol] 13.8 g/dL Normal 12.0-15.0 [facility] Comment on above: Performed By: #### L 100.0500 ####[facility] [address] [place], [address] MCH (RBC) [Entitic mass] 30.3 pg Normal 27.0-32.0 [facility] Comment on above: Performed By: #### L 100.0500 ####[facility] [address] [place], [address] MCHC (RBC) [Mass/Vol] 32.9 g/dL Normal 32-36 [facility] Comment on above: Performed By: #### L 100.0500 ####[facility] [address] [place], [address] MCV (RBC) [Entitic vol] 91.9 fL Normal 81-99 [facility] Comment on above: Performed By: #### L 100.0500 ####[facility] [address] [place], [address] Platelet mean volume (Bld) [Entitic vol] 8.2 fL Normal 6.2-12.0 [facility] Comment on above: Performed By: #### L 100.0500 ####[facility] [address] [place], [address] Platelets (Bld) [#/Vol] 325 10*3/uL Normal 150-450 [facility] Comment on above: Performed By: #### L 100.0500 ####[facility] [address] [place], [address] RBC (Bld) [#/Vol] 4.56 10*6/uL Normal 4.2-5.4 [facility] Comment on above: Performed By: #### L 100.0500 ####[facility] [address] [place], [address] RDW SD 42.5 fl Normal 35.1-43.9 [facility] Comment on above: Performed By: #### L 100.0500 ####[facility] [address] [place], [address] WBC (Bld) [#/Vol] 6.6 10*3/uL Normal 4.4-11.0 [facility] Comment on above: Performed By: #### L 100.0500 ####[facility] [address] [place], [address] Carbon dioxide, total [Moles /volume] in Central venous bloodOrdered By: Veto Lynne on 08-30-2024 CO2 [Moles/Vol] 19.7 mmol/L Low 21.0-32.0 [facility] Chloride assayOrdered By: Damion Lynne on 08-30-2024 Chloride [Moles/Vol] 107 mmol/L 98-108 [facility] Erythrocyte distribution wid th ratioOrdered By: Veto Lynne on 08-30-2024 Erythrocyte distribution width (RBC) [Ratio] 12.6 % 11.6-14.6 [facility] Erythrocyte distribution wid th standard deviationOrdered By: Veto Lynne on 08-30-2024 Erythrocyte distribution width (RBC) [Ratio] 42.5 fl 35.1-43.9 [facility] Glomerular filtration rate ( GFR) estimation/1.73 sq m using serum, plasma, or whole bOrdered By: Veto Lynne on 08-30-2024 GFR/1.73 sq M.predicted among non-blacks MDRD (S/P/Bld) [Vol rate/Area] 68 mL/min/{1.73_m2} >60 [facility] Comment on above: mL/min/1.73m2 CKD-EP I Creatinine Equation (2020) Hematocrit Auto (Bld) [Volum e fraction]Ordered By: Veto Lynne on 08-30-2024 Hematocrit (Bld) [Volume fraction] 41.9 % 37-47 [facility] Hemoglobin measurementOrdere d By: Veto Lynne on 08-30-2024 Hemoglobin (Bld) [Mass/Vol] 13.8 g/dL 12.0-15.0 [facility] MCV (mean corpuscular volume ) determinationOrdered By: Veto Lynne on 08-30-2024 MCV (RBC) [Entitic vol] 91.9 fL 81-99 [facility] Mean corpuscular hemoglobin (MCH) determinationOrdered By: Veto Lynne on 08-30-2024 MCH (RBC) [Entitic mass] 30.3 pg 27.0-32.0 [facility] Mean corpuscular hemoglobin concentration (MCHC) determinationOrdered By: Veto Lynne on 08-30-2024 MCHC (RBC) [Mass/Vol] 32.9 g/dL 32-36 [facility] Mean platelet volume determi nationOrdered By: Veto Lynne on 08-30-2024 Platelet mean volume (Bld) [Entitic vol] 8.2 fL 6.2-12.0 [facility] Platelet countOrdered By: Damion Lynne on 08-30-2024 Platelets (Bld) [#/Vol] 325 10*3/uL 150-450 [facility] Potassium measurement (mass/ volume)Ordered By: Veto Lynne on 08-30-2024 Potassium (Unsp spec) [Mass/Vol] 4.2 mmol/L 3.3-5.1 [facility] RBC Auto (Bld) [#/Vol]Ordere d By: Veto Lynne on 08-30-2024 RBC (Bld) [#/Vol] 4.56 10*6/uL 4.2-5.4 [facility] Serum creatinine measurement (mass/volume)Ordered By: Veto Lynne on 08-30-2024 Creatinine [Mass/Vol] 0.87 mg/dL 0.70-1.20 [facility] Serum glucose measurement (m ass/volume)Ordered By: Veto Lynne on 08-30-2024 Glucose [Mass/Vol] 132 mg/dL High 70-99 [facility] Serum or plasma calcium rodríguez urement (mass/volume)Ordered By: Veto Lynne on 08-30-2024 Calcium [Mass/Vol] 8.9 mg/dL 7.6-11.0 [facility] Serum or plasma urea nitroge n measurement (mass/volume)Ordered By: Veto Lynne on 08-30-2024 Urea nitrogen [Mass/Vol] 22 mg/dL High - [facility] Sodium levelOrdered By: Sarbjit Lynne on 08-30-2024 Sodium [Moles/Vol] 138 mmol/L 133-145 [facility] White blood cell (WBC) count Ordered By: Veto Lynne on 08-30-2024 WBC (Bld) [#/Vol] 6.6 10*3/uL 4.4-11.0 [facility] Basic Metabolic Profile (BMP )on 08-29-2024 BUN Normal - [facility] Comment on above: Result Comment: Kalia dumont via OM: Ordered Performed By: #### L 500.2500 ####[facility] [address] [place], [address] BUN/CRE Normal 10- [facility] Comment on above: Result Comment: Kalia dumont via OM: Ordered Performed By: #### L 500.2500 ####[facility] [address] [place], [address] Calcium Normal 7.6-11.0 [facility] Comment on above: Result Comment: Canc elled via OM: MD Ordered Performed By: #### L 500.2500 ####[facility] [address] [place], [address] CL Normal 98-108 [facility] Comment on above: Result Comment: Canc elled via OM: MD Ordered Performed By: #### L 500.2500 ####[facility] [address] [place], [address] CO2 Normal 21.0-32.0 [facility] Comment on above: Result Comment: Canc elled via OM: MD Ordered Performed By: #### L 500.2500 ####[facility] [address] [place], [address] CREAT,SERUM Normal 0.70-1.20 [facility] Comment on above: Result Comment: Canc elled via OM: MD Ordered Performed By: #### L 500.2500 ####[facility] [address] [place], [address] eGFR Normal >60 [facility] Comment on above: Result Comment: Canc elled via OM: MD Ordered Performed By: #### L 500.2500 ####[facility] [address] [place], [address] GAP Normal 5-15 [facility] Comment on above: Result Comment: Canc elled via OM: MD Ordered Performed By: #### L 500.2500 ####[facility] [address] [place], [address] GLU Normal 70-99 [facility] Comment on above: Result Comment: Canc elled via OM: MD Ordered Performed By: #### L 500.2500 ####[facility] [address] [place], [address] Potassium Normal 3.3-5.1 [facility] Comment on above: Result Comment: Canc elled via OM: MD Ordered Performed By: #### L 500.2500 ####[facility] [address] [place], [address] Basic Metabolic Profile (BMP) Normal 133-145 [facility] Comment on above: Result Comment: Canc elled via OM: MD Ordered Performed By: #### L 500.2500 ####[facility] [address] [place], [address] Bedside Glucoseon 08-29-2024 FINGERSTICK GLU 132 mg/dL High 74-106 [facility] Comment on above: Result Comment: SAMANTA GEMENT OF PATIENT CARE PER NURSING PROTOCOL Performed By: #### L 501.080 ####[facility] [address] [place], [address] FINGERSTICK GLU 131 mg/dL High 74-106 [facility] Comment on above: Result Comment: SAMANTA GEMENT OF PATIENT CARE PER NURSING PROTOCOL Performed By: #### L 501.080 ####[facility] [address] [place], [address] FINGERSTICK GLU 120 mg/dL High 74-106 [facility] Comment on above: Result Comment: SAMANTA GEMENT OF PATIENT CARE PER NURSING PROTOCOL Performed By: #### L 501.080 ####[facility] [address] [place], [address] CBC-Complete Blood Cnt No Di ffon 08-29-2024 HCT Normal 37-47 [facility] Comment on above: Result Comment: Canc elled via OM: MD Ordered Performed By: #### L 100.0500 ####[facility] [address] [place], [address] HGB Normal 12.0-15.0 [facility] Comment on above: Result Comment: Canc elled via OM: MD Ordered Performed By: #### L 100.0500 ####[facility] [address] [place], [address] MCH Normal 27.0-32.0 [facility] Comment on above: Result Comment: Canc elled via OM: MD Ordered Performed By: #### L 100.0500 ####[facility] [address] [place], [address] MCHC Normal 32-36 [facility] Comment on above: Result Comment: Canc elled via OM: MD Ordered Performed By: #### L 100.0500 ####[facility] [address] [place], [address] MCV Normal 81-99 [facility] Comment on above: Result Comment: Canc elled via OM: MD Ordered Performed By: #### L 100.0500 ####[facility] [address] [place], [address] PLT Normal 150-450 [facility] Comment on above: Result Comment: Canc elled via OM: MD Ordered Performed By: #### L 100.0500 ####[facility] [address] [place], [address] RBC Normal 4.2-5.4 [facility] Comment on above: Result Comment: Canc elled via OM: MD Ordered Performed By: #### L 100.0500 ####[facility] [address] [place], [address] RDW CV Normal 11.6-14.6 [facility] Comment on above: Result Comment: Canc elled via OM: MD Ordered Performed By: #### L 100.0500 ####[facility] [address] [place], [address] RDW SD Normal 35.1-43.9 [facility] Comment on above: Result Comment: Canc elled via OM: MD Ordered Performed By: #### L 100.0500 ####[facility] [address] [place], [address] WBC Normal 4.4-11.0 [facility] Comment on above: Result Comment: Canc elled via OM: Ordered Performed By: #### L 100.0500 ####[facility] [address] [place], [address] Gl[facility] at [facility] deOrdered By: Veto Lynne on 08-29-2024 Glucose [Mass/Vol] 132 mg/dL High 74-106 [facility] Comment on above: MANAGEMENT OF PATIEN T CARE PER NURSING PROTOCOL Basic Metabolic Profile (BMP )on 08-28-2024 BUN/CRE 17.3 RATIO Normal 10-20 [facility] Comment on above: Performed By: #### L 500.2500 ####[facility] [address] [place], [address] Calcium [Mass/Vol] 8.7 mg/dL Normal 7.6-11.0 [facility] Comment on above: Performed By: #### L 500.2500 ####[facility] [address] [place], [address] Chloride [Moles/Vol] 109 mmol/L High 98-108 [facility] Comment on above: Performed By: #### L 500.2500 ####[facility] [address] [place], [address] CO2 [Moles/Vol] 23.2 mmol/L Normal 21.0-32.0 [facility] Comment on above: Performed By: #### L 500.2500 ####[facility] [address] [place], [address] Creatinine [Mass/Vol] 0.87 mg/dL Normal 0.70-1.20 [facility] Comment on above: Performed By: #### L 500.2500 ####[facility] [address] [place], [address] ECRCL 48.93 ml/min Low 50-250 [facility] Comment on above: Performed By: #### L 500.2500 ####[facility] [address] [place], [address] GAP 8 Normal 5-15 [facility] Comment on above: Performed By: #### L 500.2500 ####[facility] [address] [place], [address] GFR/1.73 sq M.predicted among non-blacks MDRD (S/P/Bld) [Vol rate/Area] 68 mL/min/{1.73_m2} Normal >60 [facility] Comment on above: Result Comment: mL/m in/1.73m2 CKD-EPI Creatinine Equation (2020) Performed By: #### L 500.2500 ####[facility] [address] [place], [address] Glucose [Mass/Vol] 138 mg/dL High 70-99 [facility] Comment on above: Performed By: #### L 500.2500 ####[facility] [address] [place], [address] Potassium [Moles/Vol] 4.8 mmol/L Normal 3.3-5.1 [facility] Comment on above: Performed By: #### L 500.2500 ####[facility] [address] [place], [address] Sodium [Moles/Vol] 140 mmol/L Normal 133-145 [facility] Comment on above: Performed By: #### L 500.2500 ####[facility] [address] [place], [address] Urea nitrogen [Mass/Vol] 15 mg/dL Normal 4-19 [facility] Comment on above: Performed By: #### L 500.2500 ####[facility] [address] [place], [address] Bedside Glucoseon 08-28-2024 FINGERSTICK GLU 142 mg/dL High 74-106 [facility] Comment on above: Result Comment: SAMANTA GEMENT OF PATIENT CARE PER NURSING PROTOCOL Performed By: #### L 501.080 ####[facility] [address] [place], [address] FINGERSTICK GLU 151 mg/dL High 74-106 [facility] Comment on above: Result Comment: SAMANTA GEMENT OF PATIENT CARE PER NURSING PROTOCOL Performed By: #### L 501.080 ####[facility] [address] [place], [address] FINGERSTICK GLU 106 mg/dL Normal 74-106 [facility] Comment on above: Result Comment: SAMANTA GEMENT OF PATIENT CARE PER NURSING PROTOCOL Performed By: #### L 501.080 ####[facility] [address] [place], [address] FINGERSTICK GLU 121 mg/dL High 74-106 [facility] Comment on above: Result Comment: SAMANTA GEMENT OF PATIENT CARE PER NURSING PROTOCOL Performed By: #### L 501.080 ####[facility] [address] [place], [address] CBC-Complete [facility] Erythrocyte distribution width (RBC) [Ratio] 12.5 % Normal 11.6-14.6 [facility] Comment on above: Performed By: #### L 100.0500 ####[facility] [address] [place], [address] Hematocrit (Bld) [Volume fraction] 37.9 % Normal 37-47 [facility] Comment on above: Performed By: #### L 100.0500 ####[facility] [address] [place], [address] Hemoglobin (Bld) [Mass/Vol] 12.6 g/dL Normal 12.0-15.0 [facility] Comment on above: Performed By: #### L 100.0500 ####[facility] [address] [place], [address] MCH (RBC) [Entitic mass] 30.7 pg Normal 27.0-32.0 [facility] Comment on above: Performed By: #### L 100.0500 ####[facility] [address] [place], [address] MCHC (RBC) [Mass/Vol] 33.2 g/dL Normal 32-36 [facility] Comment on above: Performed By: #### L 100.0500 ####[facility] [address] [place], [address] MCV (RBC) [Entitic vol] 92.4 fL Normal 81-99 [facility] Comment on above: Performed By: #### L 100.0500 ####[facility] [address] [place], [address] Platelet mean volume (Bld) [Entitic vol] 8.2 fL Normal 6.2-12.0 [facility] Comment on above: Performed By: #### L 100.0500 ####[facility] [address] [place], [address] Platelets (Bld) [#/Vol] 274 10*3/uL Normal 150-450 [facility] Comment on above: Performed By: #### L 100.0500 ####[facility] [address] [place], [address] RBC (Bld) [#/Vol] 4.10 10*6/uL Low 4.2-5.4 [facility] Comment on above: Performed By: #### L 100.0500 ####[facility] [facility] [address] [place], [address] RDW SD 42.5 fl Normal 35.1-43.9 [facility] Comment on above: Performed By: #### L 100.0500 ####[facility] [address] [place], [address] WBC (Bld) [#/Vol] 5.8 10*3/uL Normal 4.4-11.0 [facility] Comment on above: Performed By: #### L 100.0500 ####[facility] [address] [place], [address] Urine Cultureon 08-28-2024 URC Normal [facility] Comment on above: Performed By: #### M 100.2200 ####[facility] [address] [place], [address] Basic Metabolic Profile (BMP )on 08-27-2024 BUN Normal 4-19 [facility] Comment on above: Result Comment: Canc elled via OM: MD Ordered Performed By: #### L 500.2500 ####[facility] [address] [place], [address] BUN/CRE Normal 10-20 [facility] Comment on above: Result Comment: Canc elled via OM: MD Ordered Performed By: #### L 500.2500 ####[facility] [address] [place], [address] Calcium Normal 7.6-11.0 [facility] Comment on above: Result Comment: Canc elled via OM: MD Ordered Performed By: #### L 500.2500 ####[facility] [address] [place], [address] CL Normal 98-108 [facility] Comment on above: Result Comment: Canc elled via OM: MD Ordered Performed By: #### L 500.2500 ####[facility] [address] [place], [address] CO2 Normal 21.0-32.0 [facility] Comment on above: Result Comment: Canc elled via OM: MD Ordered Performed By: #### L 500.2500 ####[facility] [address] [place], [address] CREAT,SERUM Normal 0.70-1.20 [facility] Comment on above: Result Comment: Canc elled via OM: MD Ordered Performed By: #### L 500.2500 ####[facility] [address] [place], [address] eGFR Normal >60 [facility] Comment on above: Result Comment: Canc elled via OM: MD Ordered Performed By: #### L 500.2500 ####[facility] [address] [place], [address] GAP Normal 5-15 [facility] Comment on above: Result Comment: Canc elled via OM: MD Ordered Performed By: #### L 500.2500 ####[facility] [address] [place], [address] GLU Normal 70-99 [facility] Comment on above: Result Comment: Canc elled via OM: MD Ordered Performed By: #### L 500.2500 ####[facility] [address] [place], [address] Potassium Normal 3.3-5.1 [facility] Comment on above: Result Comment: Canc elled via OM: MD Ordered Performed By: #### L 500.2500 ####[facility] [address] [place], [address] Basic Metabolic Profile (BMP) Normal 133-145 [facility] Comment on above: Result Comment: Canc elled via OM: MD Ordered Performed By: #### L 500.2500 ####[facility] [address] [place], [address] Bedside Glucoseon 08-27-2024 FINGERSTICK GLU 119 mg/dL High 74-106 [facility] Comment on above: Result Comment: SAMANTA CHEEMA OF PATIENT CARE PER NURSING PROTOCOL Performed By: #### L 501.080 ####[facility] [address] [place], [address] FINGERSTICK GLU 168 mg/dL High 74-106 [facility] Comment on above: Result Comment: SAMANTA GEMENT OF PATIENT CARE PER NURSING PROTOCOL Performed By: #### L 501.080 ####[facility] [address] [place], [address] FINGERSTICK GLU 138 mg/dL High 74-106 [facility] Comment on above: Result Comment: SAMANTA GEMENT OF PATIENT CARE PER NURSING PROTOCOL Performed By: #### L 501.080 ####[facility] [address] [place], [address] FINGERSTICK GLU 125 mg/dL High 74-106 [facility] Comment on above: Result Comment: SAMANTA GEMENT OF PATIENT CARE PER NURSING PROTOCOL Performed By: #### L 501.080 ####[facility] [address] [place], [address] CBC-Complete Blood Cnt No Di ffon 08-27-2024 HCT Normal 37-47 [facility] Comment on above: Result Comment: Canc elled via OM: MD Ordered Performed By: #### L 100.0500 ####[facility] [address] [place], [address] HGB Normal 12.0-15.0 [facility] Comment on above: Result Comment: Canc elled via OM: MD Ordered Performed By: #### L 100.0500 ####[facility] [address] [place], [address] MCH Normal 27.0-32.0 [facility] Comment on above: Result Comment: Canc elled via OM: MD Ordered Performed By: #### L 100.0500 ####[facility] [address] [place], [address] MCHC Normal 32-36 [facility] Comment on above: Result Comment: Canc elled via OM: MD Ordered Performed By: #### L 100.0500 ####[facility] [address] [place], [address] MCV Normal 81-99 [facility] Comment on above: Result Comment: Canc elled via OM: MD Ordered Performed By: #### L 100.0500 ####[facility] [address] [place], [address] PLT Normal 150-450 [facility] Comment on above: Result Comment: Canc elled via OM: MD Ordered Performed By: #### L 100.0500 ####[facility] [address] [place], [address] RBC Normal 4.2-5.4 [facility] Comment on above: Result Comment: Canc elled via OM: MD Ordered Performed By: #### L 100.0500 ####[facility] [address] [place], [address] RDW CV Normal 11.6-14.6 [facility] Comment on above: Result Comment: Canc elled via OM: MD Ordered Performed By: #### L 100.0500 ####[facility] [address] [place], [address] RDW SD Normal 35.1-43.9 [facility] Comment on above: Result Comment: Canc elled via OM: MD Ordered Performed By: #### L 100.0500 ####[facility] [address] [place], [address] WBC Normal 4.4-11.0 [facility] Comment on above: Result Comment: Canc elled via OM: MD Ordered Performed By: #### L 100.0500 ####[facility] [address] [place], [address] Absolute lymphocyte countOrd ered By: Isabel Michelle on 08-26-2024 Lymphocytes Auto (Unsp spec) [#/Vol] 1.46 10*3/uL 0.83-4.51 [facility] Absolute neutrophil countOrd ered By: Viviana on 08-26-2024 Neutrophils (Bld) [#/Vol] 3.6 10*3/uL 2.0-7.7 [facility] Automated lymphocyte count a s percentage of total leukocytesOrdered By: Viviana on 08-26-2024 Lymphocytes/100 WBC Auto (Unsp spec) 23.8 % 19-41 [facility] Basophil percentageOrdered B y: on 08-26-2024 Basophils/100 WBC (Bld) 0.8 % 0-1 [facility] Bedside Glucoseon 08-26-2024 FINGERSTICK GLU 167 mg/dL High [facility]106 [facility] Comment on above: Result Comment: SAMANTA GEMENT OF PATIENT CARE PER NURSING PROTOCOL Performed By: #### L 501.080 ####[facility] [address] [facility] [address] FINGERSTICK GLU 116 mg/dL High [address] [place] [address] Comment on above: Result Comment: SAMANTA GEMENT OF PATIENT CARE PER NURSING PROTOCOL Performed By: #### L 501.080 ####[facility] [address] [facility] [address] FINGERSTICK GLU 145 mg/dL High [address] [place] [address] Comment on above: Result Comment: SAMANTA GEMENT OF PATIENT CARE PER NURSING PROTOCOL Performed By: #### L 501.080 ####[facility] [address] [facility] [address] FINGERSTICK GLU 126 mg/dL High [address] [place] [address] Comment on above: Result Comment: SAMANTA GEMENT OF PATIENT CARE PER NURSING PROTOCOL Performed By: #### L 501.080 ####[facility] [address] [facility] [address] Bilirubin, totalOrdered By: Isabel Michelle on 08-26-2024 Bilirubin [Mass/Vol] 0.34 mg/dL 0.00-1.30 [facility] CBC W/Diff, Automatedon 05-0 -2024 Absolute Lymph 1.46 X10 3/uL Normal 0.83-4.51 [facility] Comment on above: Performed By: #### L 100.0100, L500.4050 ####[facility] [address] [place], [address] Absolute Neut 3.6 X10 3/uL Normal 2.0-7.7 [facility] Comment on above: Performed By: #### L 100.0100, L500.4050 ####[facility] [address] [place], [address] Basophils/100 WBC (Bld) 0.8 % Normal 0-1 [facility] Comment on above: Performed By: #### L 100.0100, L500.4050 ####[facility] [address] [place], [address] Eosinophils/100 WBC (Bld) 7.0 % High 0-5 [facility] Comment on above: Performed By: #### L 100.0100, L500.4050 ####[facility] [address] [place], [address] Erythrocyte distribution width (RBC) [Ratio] 12.5 % Normal 11.6-14.6 [facility] Comment on above: Performed By: #### L 100.0100, L500.4050 ####[facility] [address] [place], [address] Hematocrit (Bld) [Volume fraction] 34.6 % Low 37-47 [facility] Comment on above: Performed By: #### L 100.0100, L500.4050 ####[facility] [address] [place], [address] Hemoglobin (Bld) [Mass/Vol] 11.6 g/dL Low 12.0-15.0 [facility] Comment on above: Performed By: #### L 100.0100, L500.4050 ####[facility] [address] [place], [address] IG% 0.500 Normal 0.0-0.9 [facility] Comment on above: Result Comment: IG% - Immature Granulocytes (promyelocytes, myelocytes andmetamyelocytes) > 1% indicates that a LEFT SHIFT is Present. Performed By: #### L 100.0100, L500.4050 ####[facility] [address] [place], [address] Lymphocytes/100 WBC (Bld) 23.8 % Normal 19-41 [facility] Comment on above: Performed By: #### L 100.0100, L500.4050 ####[facility] [address] [place], [address] MCH (RBC) [Entitic mass] 30.6 pg Normal 27.0-32.0 [facility] Comment on above: Performed By: #### L 100.0100, L500.4050 ####[facility] [address] [place], [address] MCHC (RBC) [Mass/Vol] 33.5 g/dL Normal 32-36 [facility] Comment on above: Performed By: #### L 100.0100, L500.4050 ####[facility] [address] [place], [address] MCV (RBC) [Entitic vol] 91.3 fL Normal 81-99 [facility] Comment on above: Performed By: #### L 100.0100, L500.4050 ####[facility] [address] [place], [address] Monocytes/100 WBC (Bld) 9.3 % Normal 0-10 [facility] Comment on above: Performed By: #### L 100.0100, L500.4050 ####[facility] [address] [place], [address] Neutrophils/100 WBC (Bld) 58.6 % Normal 47-70 [facility] Comment on above: Performed By: #### L 100.0100, L500.4050 ####[facility] [address] [place], [address] Nucleated RBC (Bld) [#/Vol] 0 10*3/uL Normal 0-5 [facility] Comment on above: Performed By: #### L 100.0100, L500.4050 ####[facility] [address] [place], [address] Platelet mean volume (Bld) [Entitic vol] 8.1 fL Normal 6.2-12.0 [facility] Comment on above: Performed By: #### L 100.0100, L500.4050 ####[facility] [address] [place], [address] Platelets (Bld) [#/Vol] 279 10*3/uL Normal 150-450 [facility] Comment on above: Performed By: #### L 100.0100, L500.4050 ####[facility] [address] [place], [address] RBC (Bld) [#/Vol] 3.79 10*6/uL Low 4.2-5.4 [facility] Comment on above: Performed By: #### L 100.0100, L500.4050 ####[facility] [address] [place], [address] RDW SD 41.5 fl Normal 35.1-43.9 [facility] Comment on above: Performed By: #### L 100.0100, L500.4050 ####[facility] [address] [place], [address] WBC (Bld) [#/Vol] 6.1 10*3/uL Normal 4.4-11.0 [facility] Comment on above: Performed By: #### L 100.0100, L500.4050 ####[facility] [address] [place], [address] CPK Total, Creatine Kinaseon 08-26-2024 CPK TOTAL 150 U/L Normal 24-195 [facility] Comment on above: Order Comment: *ADD ON- WG6//M N O* Performed By: #### L 501.3620 ####[facility] [address] [place], [address] Comprehensive Metabolic Prof ilon 08-26-2024 Albumin [Mass/Vol] 3.2 g/dL Low 3.4-4.8 [facility] Comment on above: Performed By: #### L 100.0100, L500.4050 ####[facility] [address] [place], [address] Albumin/Globulin [Mass ratio] 1.3 {ratio} Normal 0.9-2.4 [facility] Comment on above: Performed By: #### L 100.0100, L500.4050 ####[facility] [address] [place], [address] ALK PHOS 38 U/L Normal 35-104 [facility] Comment on above: Performed By: #### L 100.0100, L500.4050 ####[facility] [address] [place], [address] ALT [Catalytic activity/Vol] 16 U/L Normal <=34 [facility] Comment on above: Performed By: #### L 100.0100, L500.4050 ####[facility] [address] [place], [address] AST [Catalytic activity/Vol] 27 U/L Normal <=31 [facility] Comment on above: Performed By: #### L 100.0100, L500.4050 ####[facility] [address] [place], [address] Bilirubin [Mass/Vol] 0.34 mg/dL Normal 0.00-1.30 [facility] Comment on above: Performed By: #### L 100.0100, L500.4050 ####[facility] [address] [place], [address] BUN/CRE 24.4 RATIO High 10-20 [facility] Comment on above: Performed By: #### L 100.0100, L500.4050 ####[facility] [address] [place], [address] Calcium [Mass/Vol] 8.4 mg/dL Normal 7.6-11.0 [facility] Comment on above: Performed By: #### L 100.0100, L500.4050 ####[facility] [address] [place], [address] Chloride [Moles/Vol] 106 mmol/L Normal 98-108 [facility] Comment on above: Performed By: #### L 100.0100, L500.4050 ####[facility] [address] [place], [address] CO2 [Moles/Vol] 20.8 mmol/L Low 21.0-32.0 [facility] Comment on above: Performed By: #### L 100.0100, L500.4050 ####[facility] [address] [place], [address] Creatinine [Mass/Vol] 1.00 mg/dL Normal 0.70-1.20 [facility] Comment on above: Performed By: #### L 100.0100, L500.4050 ####[facility] [address] [place], [address] ECRCL 42.72 ml/min Low 50-250 [facility] Comment on above: Performed By: #### L 100.0100, L500.4050 ####[facility] [address] [place], [address] GAP 10 Normal 5-15 [facility] Comment on above: Performed By: #### L 100.0100, L500.4050 ####[facility] [address] [place], [address] GFR/1.73 sq M.predicted among non-blacks MDRD (S/P/Bld) [Vol rate/Area] 58 mL/min/{1.73_m2} Low >60 [facility] Comment on above: Result Comment: mL/m in/1.73m2 CKD-EPI Creatinine Equation (2020) Performed By: #### L 100.0100, L500.4050 ####[facility] [address] [place], [address] Globulin (S) [Mass/Vol] 2.4 g/dL Normal 2.2-4.2 [facility] Comment on above: Performed By: #### L 100.0100, L500.4050 ####[facility] [address] [place], [address] Glucose [Mass/Vol] 116 mg/dL High 70-99 [facility] Comment on above: Performed By: #### L 100.0100, L500.4050 ####[facility] [address] [place], [address] Potassium [Moles/Vol] 3.9 mmol/L Normal 3.3-5.1 [facility] Comment on above: Performed By: #### L 100.0100, L500.4050 ####[facility] [address] [place], [address] Sodium [Moles/Vol] 137 mmol/L Normal 133-145 [facility] Comment on above: Performed By: #### L 100.0100, L500.4050 ####[facility] [address] [place], [address] T PROT 5.6 g/dL Low 5.9-8.4 [facility] Comment on above: Performed By: #### L 100.0100, L500.4050 ####[facility] [address] [place], [address] Urea nitrogen [Mass/Vol] 24 mg/dL High 4-19 [facility] Comment on above: Performed By: #### L 100.0100, L500.4050 ####[facility] [address] [place], [address] Eosinophil percentageOrdered By: Viviana on 08-26-2024 Eosinophils/100 WBC (Bld) 7.0 % High 0-5 [facility] Immature granulocytes/100 WB C Auto (Bld)Ordered By: Viviana on 08-26-2024 Immature granulocytes/100 WBC (Bld) 0.500 % 0.0-0.9 [facility] Comment on above: IG% - Immature Granu locytes (promyelocytes, myelocytes and metamyelocytes) > 1% indicates that a LEFT SHIFT is Present. Laboratory - Chemistry and C hemistry - challengeOrdered By: Viviana on 08-26-2024 AST [Catalytic activity/Vol] 27 U/L <32 [facility] Monocyte percentageOrdered B y: on 08-26-2024 Monocytes/100 WBC (Bld) 9.3 % 0-10 [facility] Neutrophil percentageOrdered By: on 08-26-2024 Neutrophils/100 WBC (Bld) 58.6 % 47-70 [facility] No Panel InformationOrdered By: Viviana on 08-26-2024 27 U/L <32 [facility] Nucleated red blood cell per centageOrdered By: on 08-26-2024 Nucleated RBC/100 WBC (Bld) [Ratio] 0 % 0-5 [facility] Serum globulin measurementOr dered By: Isabel Michelle on 08-26-2024 Globulin (S) [Mass/Vol] 2.4 g/dL 2.2-4.2 [facility] Serum or plasma alanine sanders otransferase (ALT) measurementOrdered By: Isabel Michelle on 08-26-2024 ALT [Catalytic activity/Vol] 16 U/L <35 [facility] Serum or plasma albumin rodríguez urement (mass/volume)Ordered By: Isabel Michelle on 08-26-2024 Albumin [Mass/Vol] 3.2 g/dL Low 3.4-4.8 [facility] Serum or plasma albumin/glob ulin mass ratioOrdered By: [facility] Viviana on 08-26-2024 Albumin/Globulin [Mass ratio] 1.3 {ratio} 0.9-2.4 [facility] Serum or plasma alkaline justin sphatase measurementOrdered By: Isabel Michelle on 08-26-2024 ALP [Catalytic activity/Vol] 38 U/L 35-104 [facility] Total proteinOrdered By: Corinna Michelle on 08-26-2024 Protein [Mass/Vol] 5.6 g/dL Low 5.9-8.4 [facility] 12 Lead EKGon 08-25-2024 12 Lead EKG Normal [facility] Activated partial thrombopla stin time (aPTT) in platelet poor plasma by coagulation aOrdered By: Hermes Salas on 08-25-2024 aPTT Coag (PPP) [Time] 25.4 s 24.1-36.2 [facility] Basic Metabolic Profile (BMP )on 08-25-2024 BUN/CRE 23.0 RATIO High 10-20 [facility] Comment on above: Performed By: #### L 300.4310, L500.3400, L500.2500, L100.0100, L300.3900 ####[facility] [address] [place], [place], [address] Calcium [Mass/Vol] 9.9 mg/dL Normal 7.6-11.0 [facility] Comment on above: Performed By: #### L 300.4310, L500.3400, L500.2500, L100.0100, L300.3900 ####[facility] [address] [place], [address] Chloride [Moles/Vol] 101 mmol/L Normal 98-108 [facility] Comment on above: Performed By: #### L 300.4310, L500.3400, L500.2500, L100.0100, L300.3900 ####[facility] [address] [place], [address] CO2 [Moles/Vol] 23.5 mmol/L Normal 21.0-32.0 [facility] Comment on above: Performed By: #### L 300.4310, L500.3400, L500.2500, L100.0100, L300.3900 ####[facility] [address] [place], [address] Creatinine [Mass/Vol] 1.25 mg/dL High 0.70-1.20 [facility] Comment on above: Performed By: #### L 300.4310, L500.3400, L500.2500, L100.0100, L300.3900 ####[facility] [address] [place], [address] ECRCL 34.38 ml/min Low 50-250 [facility] Comment on above: Performed By: #### L 300.4310, L500.3400, L500.2500, L100.0100, L300.3900 ####[facility] [address] [place], [address] GAP 14 Normal 5-15 [facility] Comment on above: Performed By: #### L 300.4310, L500.3400, L500.2500, L100.0100, L300.3900 ####[facility] [address] [place], [address] GFR/1.73 sq M.predicted among non-blacks MDRD (S/P/Bld) [Vol rate/Area] 44 mL/min/{1.73_m2} Low >60 [facility] Comment on above: Result Comment: mL/m in/1.73m2 CKD-EPI Creatinine Equation (2020) Performed By: #### L 300.4310, L500.3400, L500.2500, L100.0100, L300.3900 ####[facility] [address] [place], [address] Glucose [Mass/Vol] 89 mg/dL Normal 70-99 [facility] Comment on above: Performed By: #### L 300.4310, L500.3400, L500.2500, L100.0100, L300.3900 ####[facility] [address] [place], [address] Potassium [Moles/Vol] 4.7 mmol/L Normal 3.3-5.1 [facility] Comment on above: Result Comment: Hemo lysis present, Results??could be affected.?? Performed By: #### L 300.4310, L500.3400, L500.2500, L100.0100, L300.3900 ####[facility] [address] [place], [address] Sodium [Moles/Vol] 138 mmol/L Normal 133-145 [facility] Comment on above: Performed By: #### L 300.4310, L500.3400, L500.2500, L100.0100, L300.3900 ####[facility] [address] [place], [address] Urea nitrogen [Mass/Vol] 29 mg/dL High 4-19 [facility] Comment on above: Performed By: #### L 300.4310, L500.3400, L500.2500, L100.0100, L300.3900 ####[facility] [address] [place], [address] Bilirubin Test strip Ql (U)O rdered By: Hermes Salas on 08-25-2024 Bilirubin Ql (U) Negative Negative [facility] Bilirubin directOrdered By: Hermes Salas on 08-25-2024 Bilirubin.direct [Mass/Vol] 0.13 mg/dL 0.00-0.30 [facility] Comment on above: Hemolysis present, R esults could be affected. Brain/Head without Contrasto n 08-25-2024 Brain/Head without Contrast Normal [facility] CBC W/Diff, Automatedon --2024 Absolute Lymph 2.25 X10 3/uL Normal 0.83-4.51 [facility] Comment on above: Performed By: #### L 300.4310, L500.3400, L500.2500, L100.0100, L300.3900 ####[facility] [address] [place], [address] Absolute Neut 7.2 X10 3/uL Normal 2.0-7.7 [facility] Comment on above: Performed By: #### L 300.4310, L500.3400, L500.2500, L100.0100, L300.3900 ####[facility] [address] [place], [address] Basophils/100 WBC (Bld) 0.6 % Normal 0-1 [facility] Comment on above: Performed By: #### L 300.4310, L500.3400, L500.2500, L100.0100, L300.3900 ####[facility] [address] [place], [address] Eosinophils/100 WBC (Bld) 3.4 % Normal 0-5 [facility] Comment on above: Performed By: #### L 300.4310, L500.3400, L500.2500, L100.0100, L300.3900 ####[facility] [address] [place], [address] Erythrocyte distribution width (RBC) [Ratio] 12.4 % Normal 11.6-14.6 [facility] Comment on above: Performed By: #### L 300.4310, L500.3400, L500.2500, L100.0100, L300.3900 ####[facility] [address] [place], [address] Hematocrit (Bld) [Volume fraction] 39.4 % Normal 37-47 [facility] Comment on above: Performed By: #### L 300.4310, L500.3400, L500.2500, L100.0100, L300.3900 ####[facility] [address] [place], [address] Hemoglobin (Bld) [Mass/Vol] 13.3 g/dL Normal 12.0-15.0 [facility] Comment on above: Performed By: #### L 300.4310, L500.3400, L500.2500, L100.0100, L300.3900 ####[facility] [address] [place], [address] IG% 0.500 Normal 0.0-0.9 [facility] Comment on above: Result Comment: IG% - Immature Granulocytes (promyelocytes, myelocytes andmetamyelocytes) > 1% indicates that a LEFT SHIFT is Present. Performed By: #### L 300.4310, L500.3400, L500.2500, L100.0100, L300.3900 ####[facility] [address] [place], [address] Lymphocytes/100 WBC (Bld) 20.8 % Normal 19-41 [facility] Comment on above: Performed By: #### L 300.4310, L500.3400, L500.2500, L100.0100, L300.3900 ####[facility] [address] [place], [address] MCH (RBC) [Entitic mass] 30.8 pg Normal 27.0-32.0 [facility] Comment on above: Performed By: #### L 300.4310, L500.3400, L500.2500, L100.0100, L300.3900 ####[facility] [address] [place], [address] MCHC (RBC) [Mass/Vol] 33.8 g/dL Normal 32-36 [facility] Comment on above: Performed By: #### L 300.4310, L500.3400, L500.2500, L100.0100, L300.3900 ####[facility] [address] [place], [address] MCV (RBC) [Entitic vol] 91.2 fL Normal 81-99 [facility] Comment on above: Performed By: #### L 300.4310, L500.3400, L500.2500, L100.0100, L300.3900 ####[facility] [address] [place], [address] Monocytes/100 WBC (Bld) 8.2 % Normal 0-10 [facility] Comment on above: Performed By: #### L 300.4310, L500.3400, L500.2500, L100.0100, L300.3900 ####[facility] [address] [place], [address] Neutrophils/100 WBC (Bld) 66.5 % Normal 47-70 [facility] Comment on above: Performed By: #### L 300.4310, L500.3400, L500.2500, L100.0100, L300.3900 ####[facility] [address] [place], [address] Nucleated RBC (Bld) [#/Vol] 0 10*3/uL Normal 0-5 [facility] Comment on above: Performed By: #### L 300.4310, L500.3400, L500.2500, L100.0100, L300.3900 ####[facility] [address] [place], [address] Platelet mean volume (Bld) [Entitic vol] 8.8 fL Normal 6.2-12.0 [facility] Comment on above: Performed By: #### L 300.4310, L500.3400, L500.2500, L100.0100, L300.3900 ####[facility] [address] [place], [address] Platelets (Bld) [#/Vol] 341 10*3/uL Normal 150-450 [facility] Comment on above: Performed By: #### L 300.4310, L500.3400, L500.2500, L100.0100, L300.3900 ####[facility] [address] [place], [address] RBC (Bld) [#/Vol] 4.32 10*6/uL Normal 4.2-5.4 [facility] Comment on above: Performed By: #### L 300.4310, L500.3400, L500.2500, L100.0100, L300.3900 ####[facility] [address] [place], [address] RDW SD 41.2 fl Normal 35.1-43.9 [facility] Comment on above: Performed By: #### L 300.4310, L500.3400, L500.2500, L100.0100, L300.3900 ####[facility] [address] [place], [address] WBC (Bld) [#/Vol] 10.8 10*3/uL Normal 4.4-11.0 [facility] Comment on above: Performed By: #### L 300.4310, L500.3400, L500.2500, L100.0100, L300.3900 ####[facility] [address] [place], [address] CT Chest, Abd, Pel w/Contras ton 08-25-2024 CT Chest, Abd, Pel w/Contrast Normal [facility] Emergency Department Summary on 08-25-2024 Emergency Department Summary Normal [facility] H AND P Exam - Hospitaliston 08-25-2024 H&P Exam - Hospitalist Normal [facility] normalized rat io (INR) calculationOrdered By: Hermes Salas on 08-25-2024 INR Coag (Bld) [Relative time] 1.0 {INR} [facility] Ketones Test strip Ql (U)Ord ered By: Hermes Salas on 08-25-2024 Ketones Ql (U) 5 mg/dl High Negative [facility] Liver Profileon 08-25-2024 Albumin [Mass/Vol] 3.9 g/dL Normal 3.4-4.8 [facility] Comment on above: Performed By: #### L 300.4310, L500.3400, L500.2500, L100.0100, L300.3900 ####[facility] [address] [place], [address] ALK PHOS 46 U/L Normal 35-104 [facility] Comment on above: Performed By: #### L 300.4310, L500.3400, L500.2500, L100.0100, L300.3900 ####[facility] [address] [place], [address] ALT [Catalytic activity/Vol] 19 U/L Normal <=34 [facility] Comment on above: Performed By: #### L 300.4310, L500.3400, L500.2500, L100.0100, L300.3900 ####[facility] [address] [place], [address] AST [Catalytic activity/Vol] 38 U/L High <=31 [facility] Comment on above: Result Comment: Hemo lysis present, Results??could be affected.?? Performed By: #### L 300.4310, L500.3400, L500.2500, L100.0100, L300.3900 ####[facility] [address] [place], [address] Bilirubin [Mass/Vol] 0.50 mg/dL Normal 0.00-1.30 [facility] Comment on above: Performed By: #### L 300.4310, L500.3400, L500.2500, L100.0100, L300.3900 ####[facility] [address] [place], [address] Bilirubin.direct [Mass/Vol] 0.13 mg/dL Normal 0.00-0.30 [facility] Comment on above: Result Comment: Hemo lysis present, Results??could be affected.?? Performed By: #### L 300.4310, L500.3400, L500.2500, L100.0100, L300.3900 ####[facility] [address] [place], [address] Globulin (S) [Mass/Vol] 3.0 g/dL Normal 2.2-4.2 [facility] Comment on above: Performed By: #### L 300.4310, L500.3400, L500.2500, L100.0100, L300.3900 ####[facility] [address] [place], [address] T PROT 6.9 g/dL Normal 5.9-8.4 [facility] Comment on above: Performed By: #### L 300.4310, L500.3400, L500.2500, L100.0100, L300.3900 ####[facility] [address] [place], [address] Microscopic analysis of urin e for red blood cells (RBC)Ordered By: Hermes Salas on 08-25-2024 Microscopic analysis of urine for red blood cells (RBC) 0-5 SEEN /hpf 0-5 [facility] Mucus LM Ql (Urine sed)Order ed By: Hermes Salas on 08-25-2024 Mucus Ql (Urine sed) 0 SEEN /hpf [facility] Nitrite Test strip Ql (U)Ord ered By: Hermes Salas on 08-25-2024 Nitrite Ql (U) Negative Negative [facility] Partial Thromboplast Timeon 08-25-2024 aPTT Coag (Bld) [Time] 25.4 s Normal 24.1-36.2 [facility] Comment on above: Performed By: #### L 300.4310, L500.3400, L500.2500, L100.0100, L300.3900 ####[facility] [address] [place], [address] Protein Test strip Ql (U)Ord ered By: Hermes Salas on 08-25-2024 Protein Ql (U) TNP [facility] Comment on above: Test not performed Protein, Urine (Random)on Protein (U) [Mass/Vol] 16.1 mg/dL High 0.0-12.0 [facility] Comment on above: Performed By: #### L 501.1930 ####[facility] [address] [place], [address] Prothrombin Time w/INRon INR Coag (PPP) [Relative time] 1.0 {INR} Normal [facility] Comment on above: Performed By: #### L 300.4310, L500.3400, L500.2500, L100.0100, L300.3900 ####[facility] [address] [place], [address] PT Coag (PPP) [Time] 13.8 s Normal 11.7-14.9 [facility] Comment on above: Performed By: #### L 300.4310, L500.3400, L500.2500, L100.0100, L300.3900 ####[facility] [address] [place], [address] Prothrombin timeOrdered By: Hermes Salas on 08-25-2024 PT Coag (PPP) [Time] 13.8 s 11.7-14.9 [facility] Serum or plasma creatine kin ase activityOrdered By: Isabel Michelle on 08-25-2024 CK [Catalytic activity/Vol] 150 U/L 24-195 [facility] Spine Cervical without Contr ason 08-25-2024 Spine Cervical without Contras Normal [facility] Squamous epithelial cells de tection in urine sediment by light microscopyOrdered By: Hermes Salas on 08-25-2024 Epithelial cells.squamous LM Ql (Urine sed) 0-5 SEEN /hpf 5-10 [facility] Urinalysis, Completeon 08-25 BACTERIA RARE Normal None Seen [facility] Comment on above: Order Comment: CLEAN CATCH Performed By: #### L 400.0001 ####[facility] [address] [place], [address] EPI,SQUAMOUS 0-5 SEEN Normal 5-10 [facility] Comment on above: Order Comment: CLEAN CATCH Performed By: #### L 400.0001 ####[facility] [address] [place], [address] RBC 0-5 SEEN Normal 0-5 [facility] Comment on above: Order Comment: CLEAN CATCH Performed By: #### L 400.0001 ####[facility] [address] [place], [address] WBC 10-25 SEEN Normal 0-5 [facility] Comment on above: Order Comment: CLEAN CATCH Performed By: #### L 400.0001 ####[facility] [address] [place], [address] Mucus Ql (Urine sed) 0 SEEN Normal [facility] Comment on above: Order Comment: CLEAN CATCH Performed By: #### L 400.0001 ####[facility] [address] [place], [address] Urine clarityOrdered By: Yann Salas on 08-25-2024 Clarity (U) Cloudy Clear [facility] Urine color determinationOrd ered By: Hermes Salas on 08-25-2024 Color (U) Yellow Yellow [facility] Urine cultureOrdered By: Yann Salas on 08-25-2024 Bacteria identified Cx Nom (U) Proteus mirabilis Abnormal [facility] Urine glucose detectionOrder ed By: Hermes Salas on 08-25-2024 Glucose Ql (U) Normal mg/dl Normal [facility] Urine leukocyte esterase det ection by dipstickOrdered By: Hermes Salas on 08-25-2024 Leukocyte esterase Test strip Ql (U) 500 /ul High Negative [facility] Urine pHOrdered By: Hermes harris on 08-25-2024 pH (U) 7.0 [pH] 5.0 - 8.0 [facility] Urine protein measurement (m ass/volume)Ordered By: Hermes Salas on 08-25-2024 Protein (U) [Mass/Vol] 16.1 mg/dL High 0.0-12.0 [facility] Urine sediment bacteria coun t by microscopy (number/high power field)Ordered By: Hermes Salas on 08-25-2024 Bacteria LM.HPF (Urine sed) [#/Area] RARE /hpf None Seen [facility] Urine specific gravity measu rementOrdered By: Hermes Salas on 08-25-2024 Specific gravity (U) [Rel density] 1.005 1.002-1.030 [facility] Urine urobilinogen measureme ntOrdered By: Hermes Salas on 08-25-2024 Urobilinogen Ql (U) Normal mg/dl Normal [facility] White blood cell countOrdere d By: Hermes Salas on 08-25-2024 White blood cell count 10-25 SEEN /hpf 0-5 [facility] COPPER BLOODOrdered By: Ashish Cervantes on 08-18-2024 Copper [Mass/Vol] 111 ug/dL 80 - 155 ug/dL [facility] Comment on above: This test was cuca flores, and its performance characteristics determined by the [facility] Department of Pathology and Laboratory Medicine. It has not been cleared or approved by the FDA. The [facility] Department of Pathology and Laboratory Medicine is regulated under CLIA as qualified to perform high-complexity testing. This test is used for clinical purposes. It should not be regarded as investigational or for research. Interpretation and review of laboratory results Normal [facility] CBC W Auto Differential pane l (Bld)on 08-17-2024 Basophils (Bld) [#/Vol] 0.04 10*3/uL [facility] Basophils/100 WBC (Bld) 0.6 % C [facility] Differential cell count method Nom (Bld) Auto [facility] Eosinophils (Bld) [#/Vol] 0.27 10*3/uL [facility] Eosinophils/100 WBC (Bld) 4.2 % [facility] Erythrocyte distribution width (RBC) [Ratio] 12.5 % 11.5 - 15.0 % [facility] Hematocrit (Bld) [Volume fraction] 40.7 % 36.0 - 46.0 % [facility] Hemoglobin (Bld) [Mass/Vol] 13.6 g/dL 11.5 - 15.5 g/dL [facility] Immature granulocytes (Bld) [#/Vol] 0.03 10*3/uL [facility] Immature granulocytes/100 WBC (Bld) 0.5 % [facility] Interpretation and review of laboratory results Abnormal [facility] Lymphocytes (Bld) [#/Vol] 1.6 10*3/uL [facility] Lymphocytes/100 WBC (Bld) 25 % [facility] MCH (RBC) [Entitic mass] 30.6 pg 26.0 - 34.0 pg [facility] MCHC (RBC) [Mass/Vol] 33.4 g/dL 30.5 - 36.0 g/dL [facility] MCV (RBC) [Entitic vol] 91.7 fL 80.0 - 100.0 fL [facility] Monocytes (Bld) [#/Vol] 0.51 10*3/uL [facility] Monocytes/100 WBC (Bld) 8 % C [facility] Neutrophils (Bld) [#/Vol] 3.94 10*3/uL [facility] Neutrophils/100 WBC (Bld) 61.7 % [facility] Nucleated RBC (Bld) [#/Vol] [facility] Nucleated RBC/100 WBC (Bld) [Ratio] 0 % /100 WBC [facility] Platelet mean volume (Bld) [Entitic vol] 8.3 fL Low 9.0 - 12.7 fL [facility] Platelets (Bld) [#/Vol] 361 10*3/uL [facility] RBC (Bld) [#/Vol] 4.44 10*6/uL 3.90 - 5.2 0 m/uL [facility] WBC (Bld) [#/Vol] 6.39 10*3/uL [facility] CERULOPLASMINon 08-17-2024 Ceruloplasmin [Mass/Vol] 27 mg/dL 16 - 45 mg/dL [facility] Ceruloplasmin [Mass/Vol]on 0 08-17-2024 Interpretation and review of laboratory results Normal [facility] Comprehensive metabolic 2000 panelOrdered By: Ariana Louis on 08-17-2024 Albumin [Mass/Vol] 4 g/dL 3.9 - 4.9 g/dL [facility] ALP [Catalytic activity/Vol] 52 U/L 34 - 123 U/L [facility] ALT [Catalytic activity/Vol] 18 U/L 7 - 38 U/L [facility] Anion gap [Moles/Vol] 10 mmol/L 8 - 15 mmol/L [facility] AST [Catalytic activity/Vol] 21 U/L 13 - 35 U/L [facility] Bilirubin [Mass/Vol] 0.4 mg/dL 0.2 - 1 .3 mg/dL [facility] Calcium [Mass/Vol] 10.5 mg/dL High 8.5 - 10. 2 mg/dL [facility] Chloride [Moles/Vol] 101 mmol/L 98 - 10 7 mmol/L [facility] CO2 [Moles/Vol] 27 mmol/L 22 - 30 mmol/L [facility] Creatinine [Mass/Vol] 0.96 mg/dL 0.58 - 0.96 mg/dL [facility] GFR/1.73 sq M.predicted among non-blacks MDRD (S/P/Bld) [Vol rate/Area] 61 mL/min/{1.73_m2} - PINF [facility] Comment on above: Estimated Glomerular Filtration [...] 156 mg/dL High 74 - 99 mg/dL [facility] Comment on above: The [place] Di[employer] Association (ADA) provides guidance for [...] Standards of Medical Care in Diabetes 2016, [place] [employer]. Diabetes Care. 2016.39(Suppl 1). Interpretation and review of laboratory results Abnormal [facility] Potassium [Moles/Vol] 4.7 mmol/L 3.7 - 5.1 mmol/L [facility] Protein [Mass/Vol] 6.8 g/dL 6.3 - 8.0 g/dL [facility] Sodium [Moles/Vol] 138 mmol/L 136 - 144 mmol/L [facility] Urea nitrogen [Mass/Vol] 21 mg/dL 7 - 21 mg/dL [facility] FOLATE, SERUMon 08-17-2024 Folate [Mass/Vol] ng/mL 4.7 - PINF ng/mL [facility] Comment on above: A result of > 20 ng/ mL is not necessarily indicative of a pathologic or treatable condition: it reflects a limitation of the test methodology. Assay reference range: 4.8 to 24.2 ng/mL. Suitable for detection of folate deficiency. Reference: Folate III (Folate III) [package insert V 1.0 Jamaican]. [facility], [place], [place]: February 2015. No Panel Informationon 08-17 Interpretation and review of laboratory results Normal [facility] THYROID STIMULATING HORMONEo n 08-17-2024 TSH Qn 3.41 m[IU]/L [facility] Urinalysis complete panel (U )on 08-17-2024 Bacteria LM.HPF (Urine sed) [#/Area] Negative Negative /HPF [facility] Bilirubin Ql (U) Negative Negative [facility] Clarity (Unsp spec) Turbid Abnormal Clear [facility] Color (U) Yellow Yellow [facility] Epithelial cells LM.HPF (Urine sed) [#/Area] None Seen /HPF [facility] Glucose Test strip (U) [Mass/Vol] Negative Negative [facility] Hemoglobin Ql (U) Negative Negative [facility] Hyaline casts (Urine sed) [#/Area] 1-3 /LPF Abnormal 0 /LPF [facility] Interpretation and review of laboratory results Abnormal [facility] Ketones Ql (U) Negative Negative [facility] Leukocyte esterase Test strip Ql (U) Negative Negative [facility] Nitrite Ql (U) Negative Negative [facility] pH (U) 7.5 [pH] NINF - 8.5 [facility] Protein (U) [Mass/Vol] Trace Abnormal Negative [facility] RBC LM.HPF (Urine sed) [#/Area] 0-2 /HPF 0-2 /HPF [facility] Specific gravity (U) [Rel density] 1.021 1.005 - 1.030 [facility] Urobilinogen Ql (U) 0.2 EU/dL 0.2-1.0 EU/dL [facility] WBC LM.HPF (Urine sed) [#/Area] 0-5 /HPF 0-5 /HPF [facility] This test was developed and its performance characteristics determined by [facility] [place] ([facility]). It has not been cleared or approved by the FDA. [facility] is regulated under CLIA as qualified to perform high-complexity testing. This test is used for clinical purposes. It should not be regarded as investigational or for research. [facility] VITAMIN B12 W/REFLEXon 08-17 Cobalamin (Vitamin B12) [Mass/Vol] 760 pg/mL 232 - 1245 pg/mL [facility] Interpretation and review of laboratory results Normal [facility] UA DIP, URINE (POC)on 2024 BILIRUBIN UA (POCT) Negative Negative [facility] CLARITY UA (POCT) Cloudy [facility] COLOR UA (POCT) Yellow [facility] GLUCOSE UA (POCT) Negative Negative mg/dL [facility] Hemoglobin Ql (U) Negative Negative [facility] Interpretation and review of laboratory results Abnormal [facility] KETONE UA (POCT) Negative Negative mg/dL [facility] LEUKOCYTES UA (POCT) Trace Abnormal Negative [facility] NITRITE UA (POCT) Positive Abnormal Negative [facility] PH UA (POCT) 6 4.5 - 8.0 [facility] Protein Ql (U) Negative Negative mg/dL [facility] SPECIFIC GRAVITY UA (POCT) <=1.005 Abnormal 1.005 - 1.030 [facility] UROBILINOGEN UA (POCT) 0.2 Margie l E.U./dL [facility] Location:[address], [place], [place], [id number] [place] [address] POINT OF CARE [facility] Cerv Spine 2 or 3 Viewson Cerv Spine 2 or 3 Views Normal W [facility] Emergency Department Summary on 02-27-2024 Emergency Department Summary Normal [facility] DBT Breast - bilateral scree josephgotroy 01-07-2024 IMPRESSION: BENIGN There is no mammographic evidence of malignancy. A 1 year screening mammogram is recommended. Monica snider/nate:01/07/2024 21:09:08 Oil Changer(s): RT Bacilio(R)(M), [facility] letter sent: Normal over 40 Mammogram BI-RADS: [...] Health, Family Medicine, and Medical/Surgical Oncology, the [facility] has carefully reviewed the data and [...] their providers when to stop screening mammograms. Watch Manufacturing Supervisor: Nate Transcribe Date/Time: Jan 06 2024 12:53P Dictated by: MONICA SAUNDERS MD This examination was interpreted and the report reviewed and electronically signed by: MONICA SAUNDERS MD on Jan 07 2024 9:09PM [facility] DIVISION OF RADIOLOGY * * *Final Report* * * DATE OF EXAM: Jan 06 2024 1:40PM W 0582 - WILLIE SCREENING W AVNI / PROCEDURE REASON: Screening mammogram for breast cancer * * * * Physician Interpretation * * * * RESULT: #[id number] - WILLIE SCREENING W AVNI BILATERAL DIGITAL [...] made to exams dated: 01/03/2023 mammogram - [facility], [facility] and 07/24/2022 mammogram - [facility]. There are scattered areas of fibroglandular density. There are benign post operative findings in both breasts. No significant masses, calcifications, or other findings are seen in either breast. There has been no significant interval change. DIVISION OF RADIOLOGY Provider, [facility] - 01/07/2024 * * *Final Report* * * DATE OF EXAM: Jan 06 2024 1:40PM W 0582 - WILLIE SCREENING W AVNI / PROCEDURE REASON: Screening mammogram for breast cancer * * * * Physician Interpretation * * * * RESULT: #[id number] - WILLIE SCREENING W AVNI BILATERAL DIGITAL [...] made to exams dated: 01/03/2023 mammogram - [facility], [facility] and 07/24/2022 mammogram - [facility]. There are scattered areas of fibroglandular density. There are benign post operative findings in both breasts. No significant masses, calcifications, or other findings are seen in either breast. There has been no significant interval change. IMPRESSION IMPRESSION: BENIGN There is no mammographic evidence of malignancy. A 1 year screening mammogram is recommended. Monica snider/nate:01/07/2024 21:09:08 Oil Changer(s): RT Bacilio(R)(M), [facility] letter sent: Normal over 40 Mammogram BI-RADS: [...] Health, Family Medicine, and Medical/Surgical Oncology, the [facility] has carefully reviewed the data and [...] their providers when to stop screening mammograms. Watch Manufacturing Supervisor: aNte Transcribe Date/Time: Jan 06 2024 12:53P Dictated by: MONICA SAUNDERS MD This examination was interpreted and the report reviewed and electronically signed by: MONICA SAUNDERS MD on Jan 07 2024 9:09PM [facility] DBT Breast - bilateral scree ningOrdered By: Ccf Provider on 01-07-2024 [facility] DBT Breast - bilateral danielae suzy 01-06-2024 Radiology Study observation (narrative) [facility] No Panel Informationon 10-13 IMPRESSION: NO EVIDENCE OF ACUTE FRACTURE INVOLVING THE LEFT ANKLE OR FOOT. SIGNIFICANT SOFT TISSUE SWELLING. STABLE POSTOPERATIVE HARDWARE DESCRIBED. INCREASE IN EROSIVE FINDINGS INVOLVING THE PROXIMAL INTERPHALANGEAL JOINT OF THE SECOND AND THIRD DIGITS. DEGENERATIVE CHANGES ELSEWHERE, INVOLVING MULTIPLE INTERPHALANGEAL JOINTS, HAVE MILDLY PROGRESSED. FINDINGS MAY BE SECONDARY TO EROSIVE ARTHRITIS. INFECTION IS NOT EXCLUDED.. [employer] Supervisor: JOHNY Transcribe Date/Time: Oct 14 2023 1:15P Dictated by : ANTHONY NYE MD This examination was interpreted and the report reviewed and electronically signed by: ANTHONY NYE MD on Oct 14 2023 1:20PM EST DIVISION OF RADIOLOGY Radiology Study observation (narrative) [facility] No Panel InformationOrdered By: Ccf Provider on 10-14-2023 [facility] XR Ankle - left AP and [...] of acute fracture. DIVISION OF RADIOLOGY Provider, Joel Villagran - 10/14/2023 * * *Final Report* * [...] TO EROSIVE ARTHRITIS. INFECTION IS NOT EXCLUDED.. [employer] Supervisor: JOHNY Transcribe Date/Time: Oct 14 2023 1:15P Dictated by : ANTHONY NYE MD This examination was interpreted and the report reviewed and electronically signed by: ANTHONY NYE MD on Oct 14 2023 1:20PM [facility] XR Foot - left AP and [...] of acute fracture. DIVISION OF RADIOLOGY Provider, [facility] - 10/14/2023 * * *Final Report* * [...] TO EROSIVE ARTHRITIS. INFECTION IS NOT EXCLUDED.. Watch Manufacturing Supervisor: JOHNY Transcribe Date/Time: Oct 14 2023 1:15P Dictated by : ANTHONY NYE MD This examination was interpreted and the report reviewed and electronically signed by: ANTHONY NYE MD on Oct 14 2023 1:20PM EST [facility] MRA BRAIN WO/W IVCONon 02-27 [facility] DBT Breast - bilateral diagn ostic for implanton 01-03-2023 * * *Final Report* * * DATE OF EXAM: Jan 03 2023 1:17PM [facility] 0627 - WILLIE DIAG W AVNI CHRISTOPHER / PROCEDURE REASON: multiple diagnoses * * * * Physician Interpretation * * * * RESULT: #[id number] - [facility] [employer] RT #[id number] - WILLIE DIAG W AVNI CHRISTOPHER BILATERAL DIGITAL DIAGNOSTIC [...] made to exams dated: 07/24/2022 mammogram - [facility], 11/29/2021 [facility] [...] in either breast. DIVISION [facility]OLOGY [facility] 01/03/2023 * * *Final Report* * * DATE OF EXAM: Jan 03 2023 1:17PM [facility] 0627 - WILLIE DIAG W AVNI CHRISTOPHER / PROCEDURE REASON: multiple diagnoses * * * * Physician Interpretation * * * * RESULT: #[id number] - [facility] [employer] RT #[id number] - [facility] DIAG W AVNI CHRISTOPHER BILATERAL [...] made to exams dated: 07/24/2022 mammogram - [facility], 11/29/2021 mammogram - [facility] [place], and 11/28/2020 mammogram - [facility]. There are scattered fibroglandular elements in both [...] made to exams dated: 07/24/2022 mammogram - [facility], 11/29/2021 mammogram - [facility] [place], and 11/28/2020 mammogram - [facility]. Real-time ultrasound of the right breast was [...] Health, Family Medicine, and Medical/Surgical Oncology, the [facility] has carefully reviewed the data and [...] their providers when to stop screening mammograms. Oil Changer(s): Samaria Sierra, RT(R)(M), [facility], [facility]; Apurva Kelley RT(R)(M), [facility], [facility] OVERALL STUDY BIRADS: 2 Benign finding Watch Manufacturing Supervisor: Nate Transcribe Date/Time: Jan 03 2023 12:19P Dictated by: ENRIKE BETTS MD This examination was interpreted and the report reviewed and electronically signed by: ENRIKE BETTS MD on Jan 03 2023 2:33PM EST [facility] No Panel InformationOrdered By: Ccf Provider on 01-03-2023 [facility] No Panel Informationon 01-03 Radiology Study observation (narrative) [facility] US Breast - right limitedon 01-03-2023 * * *Final Report* * * DATE OF EXAM: Jan 03 2023 1:48PM [facility] 0594 - [facility] [employer] [facility] RT / PROCEDURE REASON: multiple diagnoses * * * * Physician Interpretation * * * * RESULT: #[id number] - [facility] [employer] RT #[id number] - WILLIE DIAG W AVNI CHRISTOPHER BILATERAL DIGITAL DIAGNOSTIC [...] made to exams dated: 07/24/2022 mammogram - [facility], [facility]20[facility] There are scattered fibroglandular elements in both breasts. There is a post-surgical scar in the right breast at 6 o'clock middle depth. This is in the area of the reported palpable thickening at the 6:00 position. No other significant masses, calcifications, or other findings are seen in either breast. DIVISION OF RADIOLOGY Provider, [facility] - 01/03/2023 * * *Final Report* * * DATE OF EXAM: Jan 03 2023 1:48PM [facility] 0594 [facility] [employer] [facility] RT / PROCEDURE REASON: multiple diagnoses * * * * Physician Interpretation * * * * RESULT: #[id number] - [facility] [employer] RT #[id number] - [facility] DIAG W AVNI CHRISTOPHER BILATERAL [...] made to exams dated: 07/24/2022 mammogram - [facility], 11/29/2021 mammogram - [facility] [place], and 11/28/2020 mammogram - [facility]. There are scattered fibroglandular elements in both [...] made to exams dated: 07/24/2022 mammogram - [facility], 11/29/2021 mammogram - [facility] [place], and 11/28/2020 mammogram - [facility]. Real-time ultrasound of the right breast was [...] Health, Family Medicine, and Medical/Surgical Oncology, the [facility] has carefully reviewed the data and [...] their providers when to stop screening mammograms. Oil Changer(s): Samaria Sierra, RT(R)(M), [facility], [facility]; Apurva Kelley RT(R)(M), [facility], [facility] OVERALL STUDY BIRADS: 2 Benign finding Watch Manufacturing Supervisor: Nate Transcribe Date/Time: Jan 03 2023 12:19P Dictated by: ENRIKE BETTS MD This examination was interpreted and the report reviewed and electronically signed by: ENRIKE BETTS MD on Jan 03 2023 2:33PM EST [facility] WILLIE DIAG W AVNI LEFTon 07-24 [facility] MRA BRAIN WO/W IVCONon 02-18 [facility] WILLIE SCREENING W TOMOon 11-29 [facility] CBC panel Auto (Bld)on 10-17 Erythrocyte distribution width (RBC) [Ratio] 12.8 % 11.5 - 15.0 % [facility] Hematocrit (Bld) [Volume fraction] 43.9 % 36.0 - 46.0 % [facility] Hemoglobin (Bld) [Mass/Vol] 14.2 g/dL 11.5 - 15.5 g/dL [facility] MCH (RBC) [Entitic mass] 30.2 pg 26.0 - 34.0 pg [facility] MCHC (RBC) [Mass/Vol] 32.3 g/dL 30.5 - 36.0 g/dL [facility] MCV (RBC) [Entitic vol] 93.4 fL 80.0 - 100.0 fL [facility] Nucleated RBC (Bld) [#/Vol] <0.01 k/uL [facility] Platelet mean volume (Bld) [Entitic vol] 8.7 fL Low 9.0 - 12.7 fL [facility] Platelets (Bld) [#/Vol] 313 10*3/uL 150 - 400 k/uL [facility] RBC (Bld) [#/Vol] 4.70 10*6/uL 3.90 - 5.2 0 m/uL [facility] WBC (Bld) [#/Vol] 7.03 10*3/uL 3.70 - 11. 00 k/uL [facility] Comprehensive metabolic 2000 panelon 10-17-2021 Albumin [Mass/Vol] 4.2 g/dL 3.9 - 4.9 g/dL [facility] ALP [Catalytic activity/Vol] 51 U/L 34 - 123 U/L [facility] ALT [Catalytic activity/Vol] 20 U/L 7 - 38 U/L [facility] Anion gap [Moles/Vol] 15 mmol/L 9 - 18 mmol/L [facility] AST [Catalytic activity/Vol] 28 U/L 13 - 35 U/L [facility] Bilirubin [Mass/Vol] 0.4 mg/dL 0.2 - 1 .3 mg/dL [facility] Calcium [Mass/Vol] 10.3 mg/dL High 8.5 - 10. 2 mg/dL [facility] Chloride [Moles/Vol] 102 mmol/L 97 - 10 5 mmol/L [facility] CO2 [Moles/Vol] 22 mmol/L 22 - 30 mmol/L [facility] Creatinine [Mass/Vol] 0.83 mg/dL 0.58 - 0.96 mg/dL [facility] Estimated Glomerular Filtration Rate 74 mL/min/1.73m >=60 mL/min/1.73m [facility] Glucose [Mass/Vol] 151 mg/dL High 74 - 99 mg/dL [facility] Potassium [Moles/Vol] 5.0 mmol/L 3.7 - 5.1 mmol/L [facility] Protein [Mass/Vol] 7.1 g/dL 6.3 - 8.0 g/dL [facility] Sodium [Moles/Vol] 139 mmol/L 136 - 144 mmol/L [facility] Urea nitrogen [Mass/Vol] 19 mg/dL 7 - 21 mg/dL [facility] HbA1c (Bld)on 10-17-2021 Average glucose Estimated from glycated hemoglobin (Bld) [Mass/Vol] 140 mg/dL [facility] HbA1c (Bld) [Mass fraction] 6.5 % High 4.3 - 5.6 % [facility] LIPID PANEL, NONFASTINGon Cholesterol [Mass/Vol] 240 mg/dL High <200 mg/dL [facility] HDL Cholesterol, Nonfasting 39 mg/dL Low >39 mg/dL [facility] LDL Cholesterol, Nonfasting 148 mg/dL High <100 mg/dL [facility] LDL/HDL Ratio, Nonfasting 3.79 mg/dL High <2.54 mg/dL [facility] Non HDL Cholesterol, Nonfasting 201 mg/dL High <130 mg/dL [facility] Total Chol/HDL Ratio, Nonfasting 6.15 mg/dL High <5.10 mg/dL [facility] Triglycerides, Nonfasting 266 mg/dL High <150 mg/dL [facility] VLDL Cholesterol, Nonfasting 53 mg/dL High <30 mg/dL [facility] VITAMIN D 25 HYDROXYon 10-17 25-hydroxyvitamin D3 [Mass/Vol] 42.7 ng/mL 31.0 - 80.0 ng/mL [facility] XR ANKLE GENERAL 3V AP/LAT/O BL RIGHTon 10-08-2021 [facility] XR Ankle - right AP and Late ral and obliqueon 10-08-2021 IMPRESSION: 1. Postsurgical and remote posttraumatic changes, as described. 2.Inferior long screw transfixing the syndesmosis is fractured. Watch Manufacturing Supervisor: PSCB Transcribe Date/Time: Oct 08 2021 12:38P [...] spurring. [id number]_ USE_DIVISIO N OF RADIOLOGY Provider, [facility] - 10/08/2021 * * *Final Report* [...] long screw transfixing the syndesmosis is fractured. Watch Manufacturing Supervisor: JOHNY Transcribe Date/Time: Oct 08 2021 12:38P Dictated by : VETO BENAVIDES MD This examination was interpreted and the report reviewed and electronically signed by: VETO BENAVIDES MD on Oct 08 2021 12:41PM EST [facility] Radiology Study observation (narrative) [facility]ine [facility] XR Ankle - right AP and Late ral and obliqueOrdered By: Ccf Provider on 10-08-2021 [facility] Absolute lymphocyte counton 08-29-2021 Lymphocytes Auto (Unsp spec) [#/Vol] 1.10 10*3/uL 0.83-4.51 [facility] Work Phone: Basophil percentageon 2021 Basophils/100 WBC (Bld) 0.3 % 0-1 [facility] Work Phone: Chloride [Moles/Vol] 105 mmol/L 98-107 [facility] Work Phone: Eosinophils/100 WBC (Bld) 1.5 % 0-5 [facility] Work Phone: Glucose [Mass/Vol] 145 mg/dL 74-106 [facility] Work Phone: Comment on above: Fasting Glucose resu lt greater than or equal to 126 mg/dL suggests DIABETES MELLITUS per A.D.A. criteria. Neutrophils (Bld) [#/Vol] 4.8 10*3/uL 2.0-7.7 [facility] Work Phone: Neutrophils/100 WBC (Bld) 72.7 % 47-70 [facility] Work Phone: Potassium [Moles/Vol] 4.8 mmol/L 3.5-5.1 [facility] Work Phone: Comment on above: Moderate Hemolysis, Result may be falsely increased. Sodium [Moles/Vol] 138 mmol/L 136-145 [facility] Work Phone: WBC (Bld) [#/Vol] 6.6 10*3/uL 4.4-11.0 [facility] Work Phone: Basophil percentage 0 SEEN /hpf [facility] Work Phone: Bilirubin Test strip Ql (U)o n 08-29-2021 Bilirubin Ql (U) Negative Negative [facility] Work Phone: Blood erythrocytes count (nu mber/volume)on 08-29-2021 RBC (Bld) [#/Vol] 4.55 10*6/uL 4.2-5.4 [facility] Work Phone: Blood hemoglobin measurement (mass/volume)on 08-29-2021 Hemoglobin (Bld) [Mass/Vol] 13.9 g/dL 12.0-15.0 [facility] Work Phone: Blood lymphocytes/100 leukoc yteson 08-29-2021 Lymphocytes/100 WBC (Bld) 16.6 % 19-41 [facility] Work Phone: Blood monocytes/100 leukocyt eson 08-29-2021 Monocytes/100 WBC (Bld) 8.6 % 0-10 [facility] Work Phone: Blood platelet mean volumeon 08-29-2021 Platelet mean volume (Bld) [Entitic vol] 8.5 fL 6.2-12.0 [facility] Work Phone: Determination of erythrocyte mean corpuscular volume (MCV)on 08-29-2021 MCV (RBC) [Entitic vol] 87.5 fL 81-99 [facility] Work Phone: Hematocrit Auto (Bld) [Volum e fraction]on 08-29-2021 Hematocrit (Bld) [Volume fraction] 39.8 % 37-47 [facility] Work Phone: Ketones Test strip Ql (U)on 08-29-2021 Ketones Ql (U) Negative Negative [facility] Work Phone: Laboratory - Chemistry and C hemistry - challengeon 08-29-2021 CO2 [Moles/Vol] 27.0 mmol/L 21.0-32.0 [facility] Work Phone: Urea nitrogen/Creatinine [Mass ratio] 15.2 mg/mg 10-20 [facility] Work Phone: Laboratory - Hematology and Cell countson 08-29-2021 Erythrocyte distribution width (RBC) [Entitic vol] 40.8 fL 35.1-43.9 [facility] Work Phone: Erythrocyte distribution width (RBC) [Ratio] 12.7 % 11.6-14.6 [facility] Work Phone: Immature granulocytes/100 WBC (Bld) 0.300 % 0.0-0.9 [facility] Work Phone: Comment on above: IG% - Immature Granu locytes (promyelocytes, myelocytes and metamyelocytes) > 1% indicates that a LEFT SHIFT is Present. MCH (RBC) [Entitic mass] 30.5 pg 27.0-32.0 [facility] Work Phone: Nucleated RBC/100 WBC (Bld) [Ratio] 0 % 0-5 [facility] Work Phone: MCHC Auto (RBC) [Mass/Vol]on 08-29-2021 MCHC (RBC) [Mass/Vol] 34.9 g/dL 32-36 [facility] Work Phone: Mucus LM Ql (Urine sed)on Mucus Ql (Urine sed) 0 SEEN /hpf [facility] Work Phone: Nitrite Test strip Ql (U)on 08-29-2021 Nitrite Ql (U) Negative Negative [facility] Work Phone: No Panel Informationon 08-29 Estimated Creatinine Clearance Calc 38.29 ml/min [facility] Work Phone: Estimated GFR (MDRD) Amer 66 mL/min >60 [facility] Work Phone: Comment on above: GFR Calc Estimated GFR (MDRD) Non-Af Amer 54 mL/min >60 [facility] Work Phone: Comment on above: Non- GFR Calc Platelets bldon 08-29-2021 Platelets (Bld) [#/Vol] 324 10*3/uL 150-450 [facility] Work Phone: Protein Test strip Ql (U)on 08-29-2021 Protein Ql (U) Negative Negative [facility] Work Phone: Serum or plasma calcium rodríguez urement (mass/volume)on 08-29-2021 Calcium [Mass/Vol] 9.8 mg/dL 8.5-10.1 [facility] [place] [place] Work Phone: Serum or plasma creatinine m easurement (mass/volume)on 08-29-2021 Creatinine [Mass/Vol] 1.05 mg/dL 0.55-1.02 [facility] [place] [place] Work Phone: Comment on above: The validity of the calculated GFR & GFRAA in patients over 70 years has not been determined. Clinical correlation is essential. Serum or plasma urea nitroge n measurement (mass/volume)on 08-29-2021 Urea nitrogen [Mass/Vol] 16 mg/dL 7-18 [facility] Work Phone: Squamous epithelial cells de tection in urine sediment by light microscopyon 08-29-2021 Epithelial cells.squamous LM Ql (Urine sed) 0 SEEN /hpf [facility] Work Phone: Thin prep Papanicolaou smear with manual screeningon 08-29-2021 Thin prep Papanicolaou smear with manual screening 6 5-15 [facility] Work Phone: Urine blood detectionon 05-0 RBC Ql (U) 250 /ul Negative [facility] Work Phone: RBC Ql (U) 10-25 SEEN /hpf [facility] Work Phone: Urine clarityon 08-29-2021 Clarity (U) Cloudy Clear [facility] Work Phone: Urine color determinationon 08-29-2021 Color (U) Yellow Yellow [facility] Work Phone: Urine glucose detectionon Glucose Ql (U) Normal mg/dl Normal [facility] Work Phone: Urine leukocyte esterase det ection by dipstickon 08-29-2021 Leukocyte esterase Test strip Ql (U) 25 /ul Negative [facility] Work Phone: Urine pHon 08-29-2021 pH (U) 8.0 [pH] [facility] Work Phone: Urine sediment bacteria coun t by microscopy (number/high power field)on 08-29-2021 Bacteria LM.HPF (Urine sed) [#/Area] 1 /[HPF] None Seen [facility] Work Phone: Urine specific gravity measu rementon 08-29-2021 Specific gravity (U) [Rel density] 1.015 [facility] Work Phone: Urobilinogen Auto test strip Ql (U)on 08-29-2021 Urobilinogen Ql (U) Normal mg/dl Normal [facility] Work Phone: XR KNEE 3V AP/LAT/MERCHANT R [...] Moderate narrowing medial compartment IMPRESSION: Stable TKA Watch Manufacturing Supervisor: JOHNY Transcribe Date/Time: Aug 07 2021 1:41P Dictated by : MAR LOPEZ DO This examination was interpreted and the report reviewed and electronically signed by: MAR LOPEZ DO on Aug 07 2021 1:42PM EST [id number] Normal [facility] XR KNEE POST OP 3V AP/LAT/ME RCHANT RIGHTon 08-07-2021 [facility] MRA BRAIN WO/W IVCONon 07-03 MRA BRAIN WO/W IVCON * * *Final Report* * * DATE OF EXAM: Jul 03 2021 11:20AM [facility] 0273 - MRA BRAIN WO/W IVCON / 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 Nonruptured cerebral aneurysm. TECHNIQUE: Intracranial 3D [id number] MRA and post contrast T1 SPGR images [...] distal basilar at the junction of the utility person and left SCA. The residual portions of the aneurysm neck give rise to the bilateral P1 segments of the left SCA. Suboptimal evaluation of the left greater than right distal ICAs and the gabe (more content not included)... Normal [facility] CBC and Differentialon 03-14 Abs Baso 0.03 k/uL Normal <0.11 [facility] Comment on above: Performed By: #### C BCDIF, MG1, CMP ####[facility] [id number] [place] [address] Abs Navarro 0.68 k/uL Normal <0.87 [facility] Comment on above: Performed By: #### C BCDIF, MG1, CMP ####[facility] [address] [place] [address] Abs Neut 4.92 k/uL Normal 1.45-7.50 [facility] Comment on above: Performed By: #### C BCDIF, MG1, CMP ####[facility] [id number] [place] [address] Absolute nRBC <0.01 Normal <0.01 [facility] Comment on above: Performed By: #### C BCDIF, MG1, CMP ####[place] [address] Basophils/100 WBC (Bld) 0.4 % Normal [facility] Comment on above: Performed By: #### C BCDIF, MG1, CMP ####[facility] [id number] [place] [address] DTYPE Auto Diff Normal [facility] Comment on above: Performed By: #### C BCDIF, MG1, CMP ####[place] [address] Eosinophils (Bld) [#/Vol] 0.15 10*3/uL Normal <0.46 [facility] Comment on above: Performed By: #### C BCDIF, MG1, CMP ####[place] [address] Eosinophils/100 WBC (Bld) 2.1 % Normal [facility] Comment on above: Performed By: #### C BCDIF, MG1, CMP ####[place] [address] Erythrocyte distribution width (RBC) [Ratio] 12.4 % Normal 11.5-15.0 [facility] Comment on above: Performed By: #### C BCDIF, MG1, CMP ####[facility] [id number] [place] [address] Hematocrit (Bld) [Volume fraction] 42.2 % Normal 36.0-46.0 [facility] Comment on above: Performed By: #### STEFANIA QUIROZ, CMP ####[facility] [address] [place] [address] Hemoglobin (Bld) [Mass/Vol] 13.9 g/dL Normal 11.5-15.5 [facility] Comment on above: Performed By: #### STEFANIA QUIROZ, CMP ####[place] [address] Lymphocytes (Bld) [#/Vol] 1.41 10*3/uL Normal 1.00-4.00 [facility] Comment on above: Performed By: #### STEFANIA QUIROZ, CMP ####[place] [address] Lymphocytes/100 WBC (Bld) 19.6 % Normal [facility] Comment on above: Performed By: #### MG RICHIE1, CMP ####[place] [address] MCH 31.2 pG Normal 26.0-34.0 [facility] Comment on above: Performed By: #### STEFANIA QUIROZ, CMP ####[place] [address] MCHC (RBC) [Mass/Vol] 32.9 g/dL Normal 30.5-36.0 [facility] Comment on above: Performed By: #### Shruti REED MG1, CMP ####[place] [address] MCV (RBC) [Entitic vol] 94.6 fL Normal 80.0-100.0 [facility] Comment on above: Performed By: #### Shruti REED MG1, CMP ####[place] [address] Monocytes/100 WBC (Bld) 9.4 % Normal [facility] Comment on above: Performed By: #### MG RICHIE1, CMP ####[facility] [address] [place] [address] Neutrophils/100 WBC (Bld) 68.5 % Normal [facility] Comment on above: Performed By: #### STEFANIA QUIROZ, CMP ####[place] [address] NRBCs 0.0 /100 WBC Normal 0 [facility] Comment on above: Performed By: #### STEFANIA QUIROZ, CMP ####[facility] [address] [place] [address] Platelet mean volume (Bld) [Entitic vol] 8.6 fL Low 9.0-12.7 [facility] Comment on above: Performed By: #### STEFANIA QUIROZ, CMP ####[place] [address] Platelets (Bld) [#/Vol] 349 10*3/uL Normal 150-400 [facility] Comment on above: Performed By: #### STEFANIA QUIROZ, CMP ####[place] [address] RBC (Bld) [#/Vol] 4.46 10*6/uL Normal 3.90-5.20 [facility] Comment on above: Performed By: #### STEFANIA QUIROZ, CMP ####[place] [address] WBC (Bld) [#/Vol] 7.21 10*3/uL Normal 3.70-11.00 [facility] Comment on above: Performed By: #### MG RICHIE1, CMP ####[facility] [id number] [place] [address] CT ABD/PEL WO IVCONon 2020 CT ABD/PEL WO IVCON * * *Final Report* * * DATE OF EXAM: Mar 14 2021 4:19PM [facility] 0531 - CT ABD/PEL WO IVCON / [...] the right lower lobe suggestive of atelectasis. Fence Making Machine Operator (topogram) images: IMPRESSION: 1. No acute intra-abdominal/pelvic abnormalities are identified. 2. Diverticulosis. Watch Manufacturing Supervisor: JOHNY Transcribe Date/Time: Mar 14 2021 4:21P Dictated by : NORRIS HERNÁNDEZ MD This examination was interpreted and the report reviewed and electronically signed by: NORRIS HERNÁNDEZ MD on Mar 14 2021 4:33PM EST [id number] Normal [facility] CT CHEST W IVCON PEon 2020 CT CHEST W IVCON PE * * *Final Report* * * DATE OF EXAM: Mar 14 2021 3:01PM [facility] 0540 - CT CHEST W IVCON PE [...] No abnormality in the imaged upper abdomen. Fence Making Machine Operator (topogram) images: No additional findings. IMPRESSION: No CT evidence of pulmonary embolism. No acute chest pathology. Watch Manufacturing Supervisor: PSCElizabeth Transcribe Date/Time: Mar 14 2021 3:23P Dictated by : CANDE WEAVER MD This examination was interpreted and the report reviewed and electronically signed by: CANDE WEAVER MD on Mar 14 2021 3:30PM EST [id number] Normal [facility] Cepheid Bill only (EXCFR)on 03-14-2021 Cepheid Bill only (EXCFR) Billed for services performed Normal [facility] Comment on above: Performed By: #### C FRHAILE, EXCFR ####[facility] [id number] [place] [id number] Comp Metabolic Panelon 03-14 Albumin [Mass/Vol] 4.4 g/dL Normal 3.9-4.9 [facility] Comment on above: Performed By: #### C DEREK MG1, CMP ####[facility] [id number] [place] [address] ALP [Catalytic activity/Vol] 52 U/L Normal 34-123 [facility] Comment on above: Performed By: #### C BCMARTHAF MG1, CMP ####[facility] [id number] [place] [address] ALT [Catalytic activity/Vol] 27 U/L Normal 7-38 [facility] Comment on above: Performed By: #### C DEREK MG1, CMP ####[facility] [address] [place] [address] Anion gap [Moles/Vol] 15 mmol/L Normal 9-18 [facility] Comment on above: Performed By: #### C BCMARTHAF MG1, CMP ####[facility] [id number] [place] [address] AST [Catalytic activity/Vol] 27 U/L Normal 13-35 [facility] Comment on above: Performed By: #### C DEREK MG1, CMP ####[facility] [id number] [place] [address] Bilirubin [Mass/Vol] 0.4 mg/dL Normal 0.2-1.3 [facility] Comment on above: Performed By: #### C BCMARTHAF MG1, CMP ####[facility] [id number] [place] [address] Calcium [Mass/Vol] 10.0 mg/dL Normal 8.5-10.2 [facility] Comment on above: Performed By: #### C BCMARTHAF MG1, CMP ####[facility] [address] [place] [address] Chloride [Moles/Vol] 100 mmol/L Normal 97-105 [facility] Comment on above: Performed By: #### C BCDIF, MG1, CMP ####[facility] [address] [place] [address] CO2 [Moles/Vol] 23 mmol/L Normal 22-30 [facility] Comment on above: Performed By: #### C BCDIF, MG1, CMP ####[facility] [address] [place] [address] Creatinine [Mass/Vol] 0.73 mg/dL Normal 0.58-0.96 [facility] Comment on above: Performed By: #### C BCDIF, MG1, CMP ####[facility] [address] [place] [address] eGFR- Amer. >60 Normal [facility] Comment on above: Performed By: #### C BCDIF, MG1, CMP ####[facility] [address] [place] [address] eGFR-All Other Races >60 Normal [facility] Comment on above: Result Comment: eGFR [...] Performed By: #### C BCDIF, MG1, CMP ####[facility] [address] [place] [address] Glucose [Mass/Vol] 128 mg/dL High 74-99 [facility] Comment on above: Result Comment: The [place] Diabetes Association (ADA) provides guidance for cutoff [...] Standards of Medical Care in Diabetes 2016, [place] [employer] Association. Diabetes Care. 2016.39(Suppl 1). Performed By: #### C BCDIF, MG1, CMP ####[facility] [address] [place] [address] Potassium [Moles/Vol] 4.3 mmol/L Normal 3.7-5.1 [facility] Comment on above: Performed By: #### C BCDIF, MG1, CMP ####[facility] [address] [place] [address] Protein [Mass/Vol] 7.0 g/dL Normal 6.3-8.0 [facility] Comment on above: Performed By: #### C BCDIF, MG1, CMP ####[facility] [address] [place] [address] Sodium [Moles/Vol] 138 mmol/L Normal 136-144 [facility] Comment on above: Performed By: #### C BCDIF, MG1, CMP ####[facility] [address] [place] [address] Urea nitrogen [Mass/Vol] 18 mg/dL Normal 7-21 [facility] Comment on above: Performed By: #### C BCDIF, MG1, CMP ####[facility] [address] [place] [address] ED NOTEon 03-14-2021 ED NOTE HNO ID: [id number] Author: Luis M Ward RN Service: ? Author Type: Registered Nurse Type: ED Notes Filed: 03/14/2021 5:12 PM Note Text: Pt given discharge instructions, pt verbalized understanding and importance of follow up care, pt ambulatory at bedside, pt discharged without incident. [facility] ED NOTE HNO ID: [id number] Author: Corinne Conway RN Service: ? Author Type: Registered Nurse Type: ED Notes Filed: 03/14/2021 12:48 PM Note Text: Pt to ED with SOB for the last 6 days and elevated HR. Went to [facility] and sent to ED for evaluation. Denies pain. [facility] ED PROV NOTEon 03-14-2021 ED PROV NOTE HNO ID: [id number] Author: Ilia Montgomery MD Service: ? Author Type: Physician Type: ED Provider Notes Filed: 03/14/2021 10:33 PM Note Text: ED Continuation of Care Note March 14, 2021 3:41 PM Judi Pittman was endorsed to me by Dr. Saenz . The patient initially presented to the ED for Ms. Pittman is a 76 yo F presenting today [...] PM Ilia Montgomery MD 03/14/21 2233 Normal [facility] ED PROV NOTE HNO ID: [id number] Author: Vielka Saenz DO Service: Emergency Medicine Author Type: Physician Type: ED Provider Notes Filed: 03/19/2021 11:32 AM Note Text: ED Provider Note Patient Name: Judi Pittman SERVICE DATE: 03/14/21 History Patient presents with: [...] of breath. She has not taken any yicd-evv-ingaflg medications for symptoms. Her son took her [...] provided by: Medical records, relative and patient ultrasound technologist sonographer used: No PAST MEDICAL HISTORY Diagnosis Date [...] - OPEN TREATMENT,TRIMALLEOLAR ANKLE FRACTURE Right 05/29/2018 [facility] - PALMAR FASCIECTOMY Right 01/05/2019 Right 5th finger palmar fasciectomy - PICC LINE INSERT/CONSULT 01/23/2021 - PICC LINE INSERT/CONSULT 01/29/2021 - [place] ANESTH,REPAIR LO ABD HERNIA NOS - REMV [...] headaches. Physical (more content not included)... Normal [facility] EXCOVD, Flu A/B, RSV (On int erfaces 1102,1120)on 03-14-2021 Influenza A PCR Negative [facility] Comment on above: Performed By: #### C FRCEP, EXCFR ####[place] [address] Influenza B PCR Negative Normal [facility] Comment on above: Performed By: #### C FRCEP, EXCFR ####[place] [address] RSV PCR Negative Normal [facility] Comment on above: Result Comment: This test has been authorized by [facility] under an Emergency Use Authorization (EUA). Performed By: #### C FRCEP, EXCFR ####[place] [address] SARS-CoV-2 (COVID-19) RNA DUSTIN+probe Ql (Unsp spec) UPPER RESPIRATORY TRACT SWAB Normal [facility] Comment on above: Performed By: #### C FRCEP, EXCFR ####[place] [address] SARS-CoV-2 (COVID-19) RNA DUSTIN+probe Ql (Unsp spec) Negative for COVID19 (SARS CoV2) by RT-PCR or equivalent method. Normal Negative for COVID19 (SARS CoV2) by RT-PCR or equivalent method. [facility] Comment on above: Result Comment: This test has been authorized by [facility] under an Emergency Use Authorization (EUA). Performed By: #### C FRCEP, EXCFR ####[place] [address] Lipaseon 03-14-2021 Lipase [Catalytic activity/Vol] 54 U/L Normal 16-61 [facility] Comment on above: Performed By: #### L IPA ####[place] [address] Magnesiumon 03-14-2021 Magnesium [Mass/Vol] 2.1 mg/dL Normal 1.7-2.3 [facility] Comment on above: Performed By: #### C BCDIF, MG1, CMP ####[place] [address] NT Pro BNPon 03-14-2021 PRO B Natr Peptide <50 Normal <450 [facility] Comment on above: Performed By: #### N TBNP ####[place] [address] Troponin Ton 03-14-2021 Troponin T <0.010 Normal 0.000-0.029 [facility] Comment on above: Performed By: #### T NT ####[facility] [address] [place] [address] Urinalysison 03-14-2021 Bilirubin, Urine Negative Normal Negative [facility] Comment on above: Performed By: #### U A ####[facility] [address] [place] [address] Clarity (U) Clear Normal Clear [facility] Comment on above: Performed By: #### U A ####[facility] [address] [place] [address] Color (U) Yellow Normal Yellow [facility] Comment on above: Performed By: #### U A ####[place] [address] Comments SEE COMMENT Normal [facility] Comment on above: Result Comment: Best practice alert: to ensure optimal and accurate results, transfer urine specimens to an appropriate urine preservative tube. Performed By: #### U A ####[facility] [address] [place] [address] Glucose Ql (U) Negative Normal Negative [facility] Comment on above: Performed By: #### U A ####[place] [address] Hemoglobin/Blood,Ur Negative Normal Negative [facility] Comment on above: Performed By: #### U A ####[place] [address] Ketones Ql (U) Negative Normal Negative [facility] Comment on above: Performed By: #### U A ####[facility] [address] [place] [address] Leukest Negative Normal Negative [facility] Comment on above: Performed By: #### U A ####[place] [address] Nitrite Ql (U) Negative Normal Negative [facility] Comment on above: Performed By: #### U A ####[facility] [address] [place] [address] pH (U) 6.0 [pH] Normal 5.0-8.0 [facility] Comment on above: Performed By: #### U A ####[facility] [address] [place] [address] Protein, Urine Negative Normal Negative [facility] Comment on above: Performed By: #### U A ####[facility] [address] [place] [phone] Specific [place], Ur <=1.005 Normal 1.005-1.030 [facility] Comment on above: Performed By: #### U A ####[facility] [address] [place] [address] Urobilinogen Qn (U) 0.2 {Cuco'U}/dL Normal 0.2-1.0 [facility] Comment on above: Performed By: #### U A ####[facility] [address] [place] [address] APTTon 01-08-2021 aPTT Coag (Bld) [Time] 23.6 s Normal 23.0-32.4 [facility] Comment on above: Result Comment: Unfr [...] laboratory APTT reagent in use throughout the [facility]. Performed By: #### C BC, PT, PTT, BMP ####[facility] [address] [place] [phone] ASP/NATIVIDAD Resist Panelon 01-08 ADP Max Aggreg 17 % Max Low 65-93 [facility] Comment on above: Performed By: #### A SPCLP ####[place] [id number] [place], [place] [phone] Arach Max Aggreg 11 % Max Low 75-100 [facility] Comment on above: Performed By: #### A SPCLP ####[address] [phone] Interpretation (NOTE) Normal [facility] Comment on above: Result Comment: [...] percent. These parameters were developed at the [facility] [place] utilizing the assay and reagents performed on this patient's platelets. Ana M VELA. Trace Alberts. Manda VELA. Viviana UMAÑA. A prospective, blinded determination of the natural history of aspirin resistance among stable patients with cardiovascular disease. Journal of the [place] College of [employer]iology. 41(6):961-5, 2003. There is [...] medication history. Performed By: #### A SPCLP ####[facility] [address] [place], [place] [phone] Basic Metabolic Panlon 01-08 Anion gap [Moles/Vol] 9 mmol/L Normal 9-18 [facility] Comment on above: Performed By: #### C BC, PT, PTT, BMP ####[facility] [phone] Calcium [Mass/Vol] 9.4 mg/dL Normal 8.5-10.2 [facility] Comment on above: Performed By: #### C BC, PT, PTT, BMP ####[facility] [address] [place] [phone] Chloride [Moles/Vol] 100 mmol/L Normal 97-105 [facility] Comment on above: Performed By: #### C BC, PT, PTT, BMP ####[facility] O[address]jb4520 [phone] CO2 [Moles/Vol] 28 mmol/L Normal 22-30 [facility] Comment on above: Performed By: #### C BC, PT, PTT, BMP ####[facility] [address] Creatinine [Mass/Vol] 0.77 mg/dL Normal 0.58-0.96 [facility] Comment on above: Performed By: #### C BC, PT, PTT, BMP ####[facility] [address]zb[address] eGFR- Amer. >60 Normal [facility] Comment on above: Performed By: #### C BC, PT, PTT, BMP ####[facility] [address] eGFR-All Other Races >60 Normal [facility] Comment on above: Result Comment: eGFR [...] By: #### C BC, PT, PTT, BMP ####[facility] [address]rb[address] Glucose [Mass/Vol] 134 mg/dL High 74-99 [facility] Comment on above: Result Comment: The [place] Diabetes Association (ADA) provides guidance for cutoff [...] Standards of Medical Care in Diabetes 2016, [place] [employer]. Diabetes Care. 2016.39(Suppl 1). Performed By: #### C BC, PT, PTT, BMP ####[facility] [address] [place] [address] Potassium [Moles/Vol] 4.9 mmol/L Normal 3.7-5.1 [facility] Comment on above: Performed By: #### C BC, PT, PTT, BMP ####[facility] [address] [place] [address] Sodium [Moles/Vol] 137 mmol/L Normal 136-144 [facility] Comment on above: Performed By: #### C BC, PT, PTT, BMP ####[facility] [address] [place] [address] Urea nitrogen [Mass/Vol] 21 mg/dL Normal 7-21 [facility] Comment on above: Performed By: #### C BC, PT, PTT, BMP ####[facility] [address] [place] [address] CBCon 01-08-2021 Absolute nRBC <0.01 Normal <0.01 [facility] Comment on above: Performed By: #### C BC, PT, PTT, BMP ####[facility] [address] [place] [address] Erythrocyte distribution width (RBC) [Ratio] 13.2 % Normal 11.5-15.0 [facility] Comment on above: Performed By: #### C BC, PT, PTT, BMP ####[facility] [address] [place] [address] Hematocrit (Bld) [Volume fraction] 40.0 % Normal 36.0-46.0 [facility] Comment on above: Performed By: #### C BC, PT, PTT, BMP ####[facility] [address] [place] [address] Hemoglobin (Bld) [Mass/Vol] 12.8 g/dL Normal 11.5-15.5 [facility] Comment on above: Performed By: #### C BC, PT, PTT, BMP ####[facility] [address] [place] [address] MCH 30.5 pG Normal 26.0-34.0 [facility] Comment on above: Performed By: #### C BC, PT, PTT, BMP ####[facility] [address] [place] [address] MCHC (RBC) [Mass/Vol] 32.0 g/dL Normal 30.5-36.0 [facility] Comment on above: Performed By: #### C BC, PT, PTT, BMP ####[facility] [address]fy[address] [place] [address] MCV (RBC) [Entitic vol] 95.5 fL Normal 80.0-100.0 M [facility] Comment on above: Performed By: #### C BC, PT, PTT, BMP ####[facility] [address] [place] [address] Platelet mean volume (Bld) [Entitic vol] 8.4 fL Low 9.0-12.7 [facility] Comment on above: Performed By: #### C BC, PT, PTT, BMP ####[facility] [address] [place] [address] Platelets (Bld) [#/Vol] 297 10*3/uL Normal 150-400 [facility] Comment on above: Performed By: #### C BC, PT, PTT, BMP ####[facility] [address] [place] [address] RBC (Bld) [#/Vol] 4.19 10*6/uL Normal 3.90-5.20 [facility] Comment on above: Performed By: #### C BC, PT, PTT, BMP ####[facility] [address] [place] [address] WBC (Bld) [#/Vol] 5.23 10*3/uL Normal 3.70-11.00 [facility] Comment on above: Performed By: #### C BC, PT, PTT, BMP ####[facility] [address] [place] [address] HISTORY PHYSICALon HISTORY PHYSICAL HNO ID: [id number] Author: Gladis Bates APRN.CNP Service: ? Author Type: Nurse Practitioner Type: HANDP Filed: 01/08/2021 12:02 PM Note Text: HISTORY AND PHYSICAL EXAMINATION SERVICE DATE: 01/08/2021 SERVICE TIME: 10:57 AM PRIMARY CARE PHYSICIAN: Ruddy Cooper MD REASON FOR VISIT: Judi Pittman is a 75 year old female who is scheduled for PERCUTANEOUS TRANSCATHETER PERMANENT OCCLUSION OR EMBOLIZATION ANY METHOD CENTRAL NERVOUS SYSTEM at the request of Dr. Fitz Jones for consultation. My final recommendation will [...] fibrillation, CAD, chest pain, CHF, DVT/PE, recent NE and murmur/valvular heart disease. GI: Positive for: GERD (Occasional heartburn, Prilosec PRN) Negative for: abdominal pain, difficulty swallowing, diverticulitis, GI bleed <30 days, hepatitis, irritable bowel syndrome, inflammatory bowel disease, liver disease, nausea and vomiting. : Positive for: nocturia >1 time per night. Negative for: dysuria, frequent urination, hematuria, nephrolithiasis, renal failure, urgency and urinary tract infection. 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 Normal [facility] Protimeon 01-08-2021 PT INR 1.0 Normal 0.9-1.3 [facility] Comment on above: Result Comment: Analilia min K Antagonist (VKA) Therapeutic Range: INR 2 to 3 (Target INR of 2.5) Note: For patients treated with VKA drugs, such as warfarin, the [place] [employer]icians 2012 Guideline recommends [...] 2.5 to 3.5 (target INR of 3). Gutishtt GH, et al. Chest 2012, 141:7S-47S Hawk RA, et al. [facility] 2017, 70: 252-289 Performed By: #### C BC, PT, PTT, BMP ####[facility] [address] [place] [phone] PT Sec 10.2 sec Normal 9.7-13.0 [facility] Comment on above: Performed By: #### C BC, PT, PTT, BMP ####[facility] [address] [place] [phone] XR Chest PA and Lateralon IMPRESSION: No acute radiographic abnormality. Watch Manufacturing Supervisor: [facility] Transcribe Date/Time: Dec 25 2020 1:18P Dictated [...] soft tissues: Unremarkable. DIVISION OF RADIOLOGY Provider, Ccsylvester Villagran - 12/25/2020 * * *Final Report* * [...] Unremarkable. IMPRESSION IMPRESSION: No acute radiographic abnormality. Watch Manufacturing Supervisor: JOHNY Transcribe Date/Time: Dec 25 2020 1:18P Dictated by : ANTHONY NYE MD This examination was interpreted and the report reviewed and electronically signed by: ANTHONY NYE MD on Dec 25 2020 1:19PM [facility] Radiology Study observation (narrative) Aline caal [facility] XR Chest PA and LateralOrder ed By: Ccf Provider on 12-25-2020 [facility] Tahir 12-14-2020 CNPN Telephone (AGHOSP) JUDI PITTMAN ([id number]) 1945 F NFR Date Time Provider Department 12/14/20 DIANNE CHERRY [facility] During your visit today, we recorded the [...] RN - Fully Assessed 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 PRODUCTION RECOVERY OPERATOR(S): Anant Horton MD PROCEDURE: Diagnostic CervicoCerebral Angiography [...] SIGNATURE: Dianne Cherry MD PATIENT NAME: Judi Pittman DATE: December 06, 2020 TIME: 12:35 PM [id number] Normal [facility] NIL CAROTID CEREBRAL UNILATE RALon 12-06-2020 NIL CAROTID CEREBRAL UNILATERAL * * [...] END TIME: 12:22P{M ATTENDING: Dianne Cherry MD, PRODUCTION RECOVERY OPERATOR (FELLOW): Anant Horton MD The procedure was performed by the the doctor assistant, and the attending personally supervised the entire procedure. The attending performed the following procedural activities: Diagnostic cerebral angiogram. ANGIOGRAPHY MATERIALS: Diagnostic catheter: 5 Gabonese Vert Catheter Guidewire: 0.035 inch angled tapered [...] right common femoral artery utilizing a 4 Gabonese micropuncture set. A 5 Gabonese sheath was inserted and connected to heparinized [...] END TIME: 12:22P{M ATTENDING: Dianne Cherry MD, PRODUCTION RECOVERY OPERATOR (FELLOW): Anant Horton MD The procedure was performed by the the doctor assistant, and the attending personally supervised the entire procedure. The attending performed the following procedural activities: Diagnostic cerebral angiogram. ANGIOGRAPHY MATERIALS: Diagnostic catheter: 5 Gabonese Vert Catheter Guidewire: 0.035 inch angled tapered [...] right common femoral artery utilizing a 4 Gabonese micropuncture set. A 5 Gabonese sheath was inserted and connected to heparinized [...] included)... Normal [facility] NIL THOMPSON UNI EXT CAROTID H/No [...] END TIME: 12:22P{M ATTENDING: Dianne Cherry MD, PRODUCTION RECOVERY OPERATOR (FELLOW): Anant Horton MD The procedure was performed by the the doctor assistant, and the attending personally supervised the entire procedure. The attending performed the following procedural activities: Diagnostic cerebral angiogram. ANGIOGRAPHY MATERIALS: Diagnostic catheter: 5 Gabonese Vert Catheter Guidewire: 0.035 inch angled tapered [...] right common femoral artery utilizing a 4 Gabonese micropuncture set. A 5 Gabonese sheath was inserted and connected to heparinized [...] END TIME: 12:22P{M ATTENDING: Dianne Cherry MD, PRODUCTION RECOVERY OPERATOR (FELLOW): Anant Horton MD The procedure was performed by the the doctor assistant, and the attending personally supervised the entire procedure. The attending performed the following procedural activities: Diagnostic cerebral angiogram. ANGIOGRAPHY MATERIALS: Diagnostic catheter: 5 Gabonese Vert Catheter Guidewire: 0.035 inch angled tapered [...] right common femoral artery utilizing a 4 Gabonese micropuncture set. A 5 Gabonese sheath was inserted and connected to heparinized [...] DATE OF EXAM: Dec 06 2020 3:10PM [id number] 1026 - NIL VERT UNI - LEFT [...] END TIME: 12:22P{M ATTENDING: Dianne Cherry MD, PRODUCTION RECOVERY OPERATOR (FELLOW): Anant Horton MD The procedure was performed by the the doctor assistant, and the attending personally supervised the entire procedure. The attending performed the following procedural activities: Diagnostic cerebral angiogram. ANGIOGRAPHY MATERIALS: Diagnostic catheter: 5 Gabonese Vert Catheter Guidewire: 0.035 inch angled tapered [...] right common femoral artery utilizing a 4 Gabonese micropuncture set. A 5 Gabonese sheath was inserted and connected to heparinized [...] New RIGHT total knee arthroplasty without complication. 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 TECHNIQUE: Intracranial 3D [id number] MRA. 3D maximum intensity projection images were [...] is suspected within the visualized intracranial vasculature. Watch Manufacturing Supervisor: [facility] Transcribe Date/Time: Aug 02 2020 8:44A Dictated by : ADAM ROSE MD This examination was interpreted and the report reviewed and electronically signed by: ADAM ROSE MD on Aug 02 2020 9:02AM EST [id number] Normal [facility] XR Ankle - left AP and Later al and obliqueon 05-06-2020 IMPRESSION: Soft tissue swelling. No evidence of acute fracture. Watch Manufacturing Supervisor: JOHNY Transcribe Date/Time: May 06 2020 11:28A [...] healed fracture. - DIVISION OF RADIOLOGY Provider, [facility] - 05/06/2020 * * *Final Report* * [...] tissue swelling. No evidence of acute fracture. Watch Manufacturing Supervisor: JOHNY Transcribe Date/Time: May 06 2020 11:28A Dictated by : REINA COLLIER MD This examination was interpreted and the report reviewed and electronically signed by: REINA COLLIER MD on May 06 2020 11:29AM [facility] Radiology Study observation (narrative) Aline caal [facility] XR Ankle - left AP and Later al and obliqueOrdered By: Ccf Provider on 05-06-2020 [facility] Vital Signs Date Time Vital Sign Value Performing Clinician Facility 12-13-2024 12:09-0400 Body mass index (BMI) [Ratio] 24.41 kg/m2 Pritesh Angel MD Work Phone: [facility] 12-13-2024 12:09-0400 Body temperature 96.3 [degF] Pritesh Angel MD Work Phone: [facility] 12-13-2024 12:09-0400 Body weight 62.5 kg Pritesh Angel MD Work Phone: [facility] 12-13-2024 12:09-0400 Diastolic blood pressure 64 mm[Hg] Pritesh Angel MD Work Phone: [facility] 12-13-2024 12:09-0400 Heart rate 92 /min Pritesh Angel MD Work Phone: [facility] 12-13-2024 12:09-0400 Respiratory rate 12 /min Pritesh Angel MD Work Phone: [facility] 12-13-2024 12:09-0400 Systolic blood pressure 120 mm[Hg] Pritesh Angel MD Work Phone: [facility] 12-01-2024 17:00-0400 Diastolic blood pressure 66 mm[Hg] Dr. Ruddy Cooper MD Work Phone: [facility] 12-01-2024 17:00-0400 Heart rate 97 /min Dr. Ruddy Cooper MD Work Phone: [facility] 12-01-2024 17:00-0400 Respiratory rate 14 /min Dr. Ruddy Cooper MD Work Phone: [facility] 12-01-2024 17:00-0400 SaO2% (BldA) [Mass fraction] 99 % Dr. Ruddy Cooper MD Work Phone: [facility] 12-01-2024 17:00-0400 Systolic blood pressure 102 mm[Hg] Dr. Ruddy Cooper MD Work Phone: 5(599)410-648415 [place] [address] 12-01-2024 16:00-0400 Body temperature 97.1 [degF] Dr. Ruddy Cooper MD Work Phone: 7(805)512-912915 [place] [address] 12-01-2024 13:21-0400 Body height 154.[address] Ruddy Cooper MD Work Phone: 3(431)562-562315 [place] [address] 12-01-2024 13:21-0400 Body mass index (BMI) [Ratio] 27.3 kg/m2 Dr. Ruddy Cooper MD Work Phone: 3(343)412-942815 [place] [address] 12-01-2024 13:21-0400 Body weight 65.[address] Ruddy Cooper MD Work Phone: 3(155)487-617015 [place] [address] 10-25-2024 14:22-0400 Body temperature 97.7 [degF] Dr. Ruddy Cooper MD Work Phone: 2(239)712-339215 [place] [address] 10-25-2024 14:22-0400 Diastolic blood pressure 60 mm[Hg] Dr. Ruddy Cooper MD Work Phone: 2(309)960-812915 [place] [address] 10-25-2024 14:22-0400 Heart rate 75 /min Dr. Ruddy Cooper MD Work Phone: 3(947)136-966615 [place] [address] 10-25-2024 14:22-0400 Respiratory rate 18 /min Dr. Ruddy Cooper MD Work Phone: 3(942)033-039615 [place] [address] 10-25-2024 14:22-0400 SaO2% (BldA) [Mass fraction] 98 % Dr. Ruddy Cooper MD Work Phone: 7(680)037-575115 [place] [address] 10-25-2024 14:22-0400 Systolic blood pressure 128 mm[Hg] Dr. Ruddy Cooper MD Work Phone: 8(819)072-213715 [place] [address] 10-19-2024 21:14-0400 Body height 152.[address] Ruddy Cooper MD Work Phone: 9(718)799-905415 [place] [address] 10-19-2024 21:14-0400 Body mass index (BMI) [Ratio] 27.8 kg/m2 Dr. Ruddy Cooper MD Work Phone: 3(964)130-300315 [place] [address] 10-19-2024 21:14-0400 Body weight 64.[address] Ruddy Cooper MD Work Phone: 4(870)674-129715 [place] [address] 10-19-2024 20:17-0400 Body temperature 98.2 [degF] Dr. Ruddy Cooper MD Work Phone: 3(578)078-903315 [place] [address] 10-19-2024 20:17-0400 Diastolic blood pressure 92 mm[Hg] Dr. Ruddy Cooper MD Work Phone: 6(235)531-374015 [place] [address] 10-19-2024 20:17-0400 Heart rate 77 /min Dr. Ruddy Cooper MD Work Phone: 4(879)742-098415 [place] [address] 10-19-2024 20:17-0400 Respiratory rate 25 /min Dr. Ruddy Cooper MD Work Phone: 3(656)703-431915 [place] [address] 10-19-2024 20:17-0400 SaO2% (BldA) [Mass fraction] 100 % Dr. Ruddy Cooper MD Work Phone: 3(548)781-190015 [place] [address] 10-19-2024 20:17-0400 Systolic blood pressure 104 mm[Hg] Dr. Ruddy Cooper MD Work Phone: 3(923)851-405015 [place] [address] 10-19-2024 12:20-0400 Body height 160.[address] Ruddy Cooper MD Work Phone: 2(729)379-248215 [place] [address] 10-19-2024 12:20-0400 Body mass index (BMI) [Ratio] 25.7 kg/m2 Dr. Ruddy Cooper MD Work Phone: 9(192)880-587815 [place] [address] 10-19-2024 12:20-0400 Body weight 65.[address] Ruddy Cooper MD Work Phone: 1(282)749-167015 [place] [address] 10-12-2024 13:57-0400 Body temperature 97.9 [degF] Dr. Ruddy Cooper MD Work Phone: 6(186)965-827315 [place] [address] 10-12-2024 13:57-0400 Diastolic blood pressure 68 mm[Hg] Dr. Ruddy Cooper MD Work Phone: 6(924)045-894715 [place] [address] 10-12-2024 13:57-0400 Heart rate 82 /min Dr. Ruddy Cooper MD Work Phone: 6(407)022-838715 [place] [address] 10-12-2024 13:57-0400 Respiratory rate 16 /min Dr. Ruddy Cooper MD Work Phone: 2(381)687-818415 [place] [address] 10-12-2024 13:57-0400 SaO2% (BldA) [Mass fraction] 99 % Dr. Ruddy Cooper MD Work Phone: 4(127)539-011715 [place] [address] 10-12-2024 13:57-0400 Systolic blood pressure 142 mm[Hg] Dr. Ruddy Cooper MD Work Phone: 4(866)842-398215 [place] [address] 10-10-2024 18:57-0400 Body height 160.[address] Ruddy Cooper MD Work Phone: 4(444)996-539715 [place] [address] 10-10-2024 18:57-0400 Body mass index (BMI) [Ratio] 25.6 kg/m2 Dr. Ruddy Cooper MD Work Phone: 1(872)529-719815 [place] [address] 10-10-2024 18:57-0400 Body weight 65.[address] Ruddy Cooper MD Work Phone: 1(061)625-667815 [place] [address] 10-10-2024 17:00-0400 Body temperature 98.6 [degF] Dr. Ruddy Cooper MD Work Phone: 1(050)068-199615 [place] [address] 10-10-2024 17:00-0400 Diastolic blood pressure 71 mm[Hg] Dr. Ruddy Cooper MD Work Phone: 0(632)855-368615 [place] [address] 10-10-2024 17:00-0400 Heart rate 87 /min Dr. Ruddy Cooper MD Work Phone: 8(067)713-342115 [place] [address] 10-10-2024 17:00-0400 Respiratory rate 19 /min Dr. Ruddy Cooper MD Work Phone: 6(759)406-209615 [place] [address] 10-10-2024 17:00-0400 SaO2% (BldA) [Mass fraction] 96 % Dr. Ruddy Cooper MD Work Phone: 5(328)793-012015 [place] [address] 10-10-2024 17:00-0400 Systolic blood pressure 122 mm[Hg] Dr. Ruddy Cooper MD Work Phone: 6(643)138-243715 [place] [address] 10-10-2024 14:03-0400 Body height 160.[address] Ruddy Cooper MD Work Phone: 4(966)532-919915 [place] [address] 10-10-2024 14:03-0400 Body mass index (BMI) [Ratio] 26.9 kg/m2 Dr. Ruddy Cooper MD Work Phone: 2(395)556-383215 [place] [address] 10-10-2024 14:03-0400 Body weight 69.[address] Ruddy Cooper MD Work Phone: 1(872)952-028315 [place] [address] 09-09-2024 00:58-0400 Body temperature 98 [degF] Dr. Ruddy Cooper MD Work Phone: 7(298)279-607315 [place] [address] 09-09-2024 00:58-0400 Diastolic blood pressure 70 mm[Hg] Dr. Ruddy Cooper MD Work Phone: 4(551)733-446015 [place] [address] 09-09-2024 00:58-0400 Heart rate 78 /min Dr. Ruddy Cooper MD Work Phone: 0(280)017-161315 [place] [address] 09-09-2024 00:58-0400 Respiratory rate 20 /min Dr. Ruddy Cooper MD Work Phone: 3(013)615-608115 [place] [address] 09-09-2024 00:58-0400 SaO2% (BldA) [Mass fraction] 99 % Dr. Ruddy Cooper MD Work Phone: 8(671)377-048515 [place] [address] 09-09-2024 00:58-0400 Systolic blood pressure 117 mm[Hg] Dr. Ruddy Cooper MD Work Phone: [facility] 09-08-2024 22:11-0400 Body height 160.[address] Ruddy Cooper MD Work Phone: [facility] 09-08-2024 22:11-0400 Body mass index (BMI) [Ratio] 26.4 kg/m2 Dr. Ruddy Cooper MD Work Phone: [facility] 09-08-2024 22:11-0400 Body weight 67.[address] Ruddy Cooper MD Work Phone: [facility] 09-07-2024 13:42-0400 Diastolic blood pressure 65 mm[Hg] Bradford John SURGICAL SUPERVISOR.CLEANING VALIDATION CONSULTANT Work Phone: [facility] 09-07-2024 13:42-0400 Heart rate 91 /min Bradford John SURGICAL SUPERVISOR.CLEANING VALIDATION CONSULTANT Work Phone: [facility] 09-07-2024 13:42-0400 Systolic blood pressure 99 mm[Hg] Bradford John SURGICAL SUPERVISOR.CLEANING VALIDATION CONSULTANT Work Phone: [facility] 09-07-2024 13:39-0400 Body mass index (BMI) [Ratio] 26.13 kg/m2 Bradford John SURGICAL SUPERVISOR.CLEANING VALIDATION CONSULTANT Work Phone: [facility] 09-07-2024 13:39-0400 Body weight 66.9 kg Bradford John SURGICAL SUPERVISOR.CLEANING VALIDATION CONSULTANT Work Phone: [facility] 09-07-2024 13:39-0400 Respiratory rate 16 /min Bradford John SURGICAL SUPERVISOR.CLEANING VALIDATION CONSULTANT Work Phone: [facility] 08-30-2024 09:30-0400 Body temperature 97.9 [degF] Dr. Ruddy Cooper MD Work Phone: [facility] 08-30-2024 09:30-0400 Diastolic blood pressure 82 mm[Hg] Dr. Ruddy Cooper MD Work Phone: [facility] 08-30-2024 09:30-0400 Heart rate 95 /min Dr. Ruddy Cooper MD Work Phone: [facility] 08-30-2024 09:30-0400 Respiratory rate 17 /min Dr. Ruddy Cooper MD Work Phone: [facility] 08-30-2024 09:30-0400 SaO2% (BldA) [Mass fraction] 97 % Dr. Ruddy Cooper MD Work Phone: [facility] 08-30-2024 09:30-0400 Systolic blood pressure 134 mm[Hg] Dr. Ruddy Cooper MD Work Phone: [facility] 08-30-2024 06:00-0400 Body mass index (BMI) [Ratio] 26.4 kg/m2 Dr. Ruddy Cooper MD Work Phone: [facility] 08-30-2024 06:00-0400 Body weight 67.[address] Ruddy Cooper MD Work Phone: [facility] 08-16-2024 12:31-0400 Body mass index (BMI) [Ratio] 26.75 kg/m2 Khris Salinas MD Work Phone: [facility] 08-16-2024 12:31-0400 Body weight 68.49 kg Khris Salinas MD Work Phone: [facility] 08-16-2024 12:31-0400 Diastolic blood pressure 72 mm[Hg] Khris Salinas MD Work Phone: [facility] 08-16-2024 12:31-0400 Heart rate 97 /min Khris Salinas MD Work Phone: [facility] 08-16-2024 12:31-0400 Systolic blood pressure 113 mm[Hg] Khris Salinas MD Work Phone: [facility] 08-09-2024 13:00-0400 Body mass index (BMI) [Ratio] 26.87 kg/m2 Fitz Brown PA-C Work Phone: [facility] 08-09-2024 13:00-0400 Body temperature 98.49 [degF] Fitz Clutter PA-C Work Phone: [facility] 08-09-2024 13:00-0400 Body weight 68.8 kg Fitz Clutter PA-C Work Phone: [facility] 08-09-2024 13:00-0400 Diastolic blood pressure 80 mm[Hg] Fitz Clutter PA-C Work Phone: [facility] 08-09-2024 13:00-0400 Heart rate 72 /min Fitz Clutter PA-C Work Phone: [facility] 08-09-2024 13:00-0400 Respiratory rate 18 /min Fitz Clutter PA-C Work Phone: [facility] 08-09-2024 13:00-0400 Systolic blood pressure 126 mm[Hg] Fitz Clutter PA-C Work Phone: [facility] 06-21-2024 10:54-0500 Body mass index (BMI) [Ratio] 26.56 kg/m2 Bradford John SURGICAL SUPERVISOR.CLEANING VALIDATION CONSULTANT Work Phone: [facility] 06-21-2024 10:54-0500 Body weight 68 kg Bradford John SURGICAL SUPERVISOR.CLEANING VALIDATION CONSULTANT Work Phone: [facility] 06-21-2024 10:54-0500 Diastolic blood pressure 73 mm[Hg] Bradford John SURGICAL SUPERVISOR.CLEANING VALIDATION CONSULTANT Work Phone: [facility] 06-21-2024 10:54-0500 Heart rate 101 /min Bradford John SURGICAL SUPERVISOR.CLEANING VALIDATION CONSULTANT Work Phone: [facility] 06-21-2024 10:54-0500 Respiratory rate 16 /min Bradford John SURGICAL SUPERVISOR.CLEANING VALIDATION CONSULTANT Work Phone: [facility] 06-21-2024 10:54-0500 Systolic blood pressure 109 mm[Hg] Bradford John SURGICAL SUPERVISOR.CLEANING VALIDATION CONSULTANT Work Phone: [facility] 02-26-2024 12:39-0400 Body mass index (BMI) [Ratio] 26.4 kg/m2 Ruddy Cooper MD Work Phone: [facility] 02-26-2024 12:39-0400 Body weight 67.6 kg Ruddy Cooper MD Work Phone: [facility] 02-26-2024 12:39-0400 Diastolic blood pressure 78 mm[Hg] Ruddy Cooper MD Work Phone: [facility] 02-26-2024 12:39-0400 Heart rate 87 /min Ruddy Cooper MD Work Phone: [facility] 02-26-2024 12:39-0400 SaO2% (BldA) [Mass fraction] 97 % Ruddy Cooper MD Work Phone: [facility] 02-26-2024 12:39-0400 Systolic blood pressure 110 mm[Hg] Ruddy Cooper MD Work Phone: [facility] 02-25-2024 12:48-0400 Body mass index (BMI) [Ratio] 26.48 kg/m2 Jackson Perdomo SURGICAL SUPERVISOR.HSE MANAGER Work Phone: [facility] 02-25-2024 12:48-0400 Body temperature 97.3 [degF] Raphael Perdomo SURGICAL SUPERVISOR.HSE MANAGER Work Phone: [facility] 02-25-2024 12:48-0400 Body weight 67.8 kg Jackson Perdomo SURGICAL SUPERVISOR.HSE MANAGER Work Phone: [facility] 02-25-2024 12:48-0400 Diastolic blood pressure 80 mm[Hg] Raphael Perdomo SURGICAL SUPERVISOR.HSE MANAGER Work Phone: [facility] 02-25-2024 12:48-0400 Heart rate 99 /min Raphael Perdomo SURGICAL SUPERVISOR.HSE MANAGER Work Phone: [facility] 02-25-2024 12:48-0400 SaO2% (BldA) [Mass fraction] 96 % Jackson Perdomo SURGICAL SUPERVISOR.HSE MANAGER Work Phone: [facility] 02-25-2024 12:48-0400 Systolic blood pressure 120 mm[Hg] Raphael Riddleenter SURGICAL SUPERVISOR.HSE MANAGER Work Phone: [facility] 12-19-2023 11:05-0400 Body mass index (BMI) [Ratio] 26.44 kg/m2 Bradford John SURGICAL SUPERVISOR.CLEANING VALIDATION CONSULTANT Work Phone: [facility] 12-19-2023 11:05-0400 Body weight 67.7 kg Bradford John SURGICAL SUPERVISOR.CLEANING VALIDATION CONSULTANT Work Phone: [facility] 12-19-2023 11:05-0400 Diastolic blood pressure 71 mm[Hg] Bradford John SURGICAL SUPERVISOR.CLEANING VALIDATION CONSULTANT Work Phone: [facility] 12-19-2023 11:05-0400 Heart rate 87 /min Bradford John SURGICAL SUPERVISOR.CLEANING VALIDATION CONSULTANT Work Phone: [facility] 12-19-2023 11:05-0400 Respiratory rate 16 /min Bradford John SURGICAL SUPERVISOR.CLEANING VALIDATION CONSULTANT Work Phone: [facility] 12-19-2023 11:05-0400 Systolic blood pressure 118 mm[Hg] Bradford John SURGICAL SUPERVISOR.CLEANING VALIDATION CONSULTANT Work Phone: [facility] 12-10-2023 14:46-0400 Body mass index (BMI) [Ratio] 26.48 kg/m2 Ruddy Cooper MD Work Phone: [facility] 12-10-2023 14:46-0400 Body temperature 97.3 [degF] Ruddy Cooper MD Work Phone: [facility] 12-10-2023 14:46-0400 Body weight 67.8 kg Ruddy Cooper MD Work Phone: [facility] 12-10-2023 14:46-0400 Diastolic blood pressure 82 mm[Hg] Ruddy Cooper MD Work Phone: [facility] 12-10-2023 14:46-0400 Heart rate 72 /min Ruddy Cooper MD Work Phone: [facility] 12-10-2023 14:46-0400 Respiratory rate 16 /min Ruddy Cooper MD Work Phone: [facility] 12-10-2023 14:46-0400 SaO2% (BldA) [Mass fraction] 96 % Ruddy Cooper MD Work Phone: [facility] 12-10-2023 14:46-0400 Systolic blood pressure 126 mm[Hg] Ruddy Cooper MD Work Phone: [facility] 10-22-2023 12:00-0400 Heart rate 100 /min Charleen Johnson PT [facility] Comment on above: after walking 10-22-2023 12:00-0400 SaO2% (BldA) [Mass fraction] 99 % Charleen Johnson PT [facility] 10-20-2023 15:00-0400 SaO2% (BldA) [Mass fraction] 98 % Charleen Johnson PT [facility] 10-14-2023 12:00-0400 Body mass index (BMI) [Ratio] 26.56 kg/m2 Ruiz Serrato SURGICAL SUPERVISOR.HSE MANAGER Work Phone: [facility] 10-14-2023 12:00-0400 Body temperature 97.59 [degF] Ruiz Serrato SURGICAL SUPERVISOR.HSE MANAGER Work Phone: [facility] 10-14-2023 12:00-0400 Body weight 68 kg Ruiz Serrato SURGICAL SUPERVISOR.HSE MANAGER Work Phone: [facility] 10-14-2023 12:00-0400 Diastolic blood pressure 79 mm[Hg] Ruiz Serrato SURGICAL SUPERVISOR.HSE MANAGER Work Phone: [facility] 10-14-2023 12:00-0400 Heart rate 105 /min Ruiz Serrato SURGICAL SUPERVISOR.HSE MANAGER Work Phone: [facility] 10-14-2023 12:00-0400 Respiratory rate 18 /min Ruiz Serrato SURGICAL SUPERVISOR.HSE MANAGER Work Phone: [facility] 10-14-2023 12:00-0400 SaO2% (BldA) [Mass fraction] 100 % Ruiz Rojelio SURGICAL SUPERVISOR.HSE MANAGER Work Phone: [facility] 10-14-2023 12:00-0400 Systolic blood pressure 117 mm[Hg] Ruiz Floodbury SURGICAL SUPERVISOR.HSE MANAGER Work Phone: [facility] 09-10-2023 13:20-0400 Body mass index (BMI) [Ratio] 26.75 kg/m2 Raphael Riddleenter SURGICAL SUPERVISOR.HSE MANAGER Work Phone: [facility] 09-10-2023 13:20-0400 Body temperature 97.7 [degF] Raphael Riddleenter SURGICAL SUPERVISOR.HSE MANAGER Work Phone: [facility] 09-10-2023 13:20-0400 Body weight 68.49 kg Raphael Riddleenter SURGICAL SUPERVISOR.HSE MANAGER Work Phone: [facility] 09-10-2023 13:20-0400 Diastolic blood pressure 87 mm[Hg] Raphael Riddleenter SURGICAL SUPERVISOR.HSE MANAGER Work Phone: [facility] 09-10-2023 13:20-0400 Heart rate 100 /min Raphael Perdomo SURGICAL SUPERVISOR.HSE MANAGER Work Phone: [facility] 09-10-2023 13:20-0400 SaO2% (BldA) [Mass fraction] 96 % Raphael Riddleenter SURGICAL SUPERVISOR.HSE MANAGER Work Phone: [facility] 09-10-2023 13:20-0400 Systolic blood pressure 125 mm[Hg] Raphael Riddleenter SURGICAL SUPERVISOR.HSE MANAGER Work Phone: [facility] 09-08-2023 13:19-0400 Body mass index (BMI) [Ratio] 26.75 kg/m2 Bradfordcasey Alvarados SURGICAL SUPERVISOR.CLEANING VALIDATION CONSULTANT Work Phone: [facility] 09-08-2023 13:19-0400 Body weight 68.49 kg Bradfordcasey Alvarados SURGICAL SUPERVISOR.CLEANING VALIDATION CONSULTANT Work Phone: [facility] 09-08-2023 13:19-0400 Diastolic blood pressure 85 mm[Hg] Bradford John SURGICAL SUPERVISOR.CLEANING VALIDATION CONSULTANT Work Phone: [facility] 09-08-2023 13:19-0400 Heart rate 108 /min Bradford John SURGICAL SUPERVISOR.CLEANING VALIDATION CONSULTANT Work Phone: [facility] 09-08-2023 13:19-0400 Respiratory rate 16 /min Bradford John SURGICAL SUPERVISOR.CLEANING VALIDATION CONSULTANT Work Phone: [facility] 09-08-2023 13:19-0400 Systolic blood pressure 132 mm[Hg] Bradford John SURGICAL SUPERVISOR.CLEANING VALIDATION CONSULTANT Work Phone: [facility] 09-05-2023 16:38-0400 Body mass index (BMI) [Ratio] 26.75 kg/m2 Ruddy Cooper MD Work Phone: [facility] 09-05-2023 16:38-0400 Body temperature 97.9 [degF] Ruddy Cooper MD Work Phone: [facility] 09-05-2023 16:38-0400 Body weight 68.49 kg Ruddy Cooper MD Work Phone: [facility] 09-05-2023 16:38-0400 Diastolic blood pressure 72 mm[Hg] Ruddy Cooper MD Work Phone: [facility] 09-05-2023 16:38-0400 Heart rate 103 /min Ruddy Cooper MD Work Phone: [facility] 09-05-2023 16:38-0400 Respiratory rate 18 /min Ruddy Cooper MD Work Phone: [facility] 09-05-2023 16:38-0400 SaO2% (BldA) [Mass fraction] 99 % Ruddy Cooper MD Work Phone: [facility] 09-05-2023 16:38-0400 Systolic blood pressure 124 mm[Hg] Ruddy Cooper MD Work Phone: [facility] 05-26-2023 15:39-0500 Body weight 69.4 kg Ruddy Cooper MD Work Phone: [facility] 05-26-2023 15:39-0500 Diastolic blood pressure 80 mm[Hg] Ruddy Cooper MD Work Phone: [facility] 05-26-2023 15:39-0500 Heart rate 74 /min Ruddy Cooper MD Work Phone: [facility] 05-26-2023 15:39-0500 Respiratory rate 16 /min Ruddy Cooper MD Work Phone: [facility] 05-26-2023 15:39-0500 Systolic blood pressure 122 mm[Hg] Ruddy Cooper MD Work Phone: [facility] 04-03-2023 14:02-0500 Body temperature 97.39 [degF] Raphael Perdomo SURGICAL SUPERVISOR.HSE MANAGER Work Phone: [facility] 04-03-2023 14:02-0500 Body weight 68.95 kg Arphael Perdomo SURGICAL SUPERVISOR.HSE MANAGER Work Phone: [facility] 04-03-2023 14:02-0500 Diastolic blood pressure 76 mm[Hg] Raphael Perdomo SURGICAL SUPERVISOR.HSE MANAGER Work Phone: [facility] 04-03-2023 14:02-0500 Heart rate 77 /min Raphael Perdomo SURGICAL SUPERVISOR.HSE MANAGER Work Phone: [facility] 04-03-2023 14:02-0500 Systolic blood pressure 123 mm[Hg] Raphael Perdomo SURGICAL SUPERVISOR.HSE MANAGER Work Phone: [facility] 12-24-2022 09:18-0400 Body height 160 cm Sehela ROACHC Work Phone: [facility] 12-24-2022 09:18-0400 Body weight 66.68 kg Sheela VELA-C Work Phone: [facility] 10-18-2022 13:22-0400 Body weight 68.95 kg Bradford John SURGICAL SUPERVISOR.CLEANING VALIDATION CONSULTANT Work Phone: [facility] 10-18-2022 13:22-0400 Diastolic blood pressure 70 mm[Hg] Bradford John SURGICAL SUPERVISOR.CLEANING VALIDATION CONSULTANT Work Phone: [facility] 10-18-2022 13:22-0400 Heart rate 96 /min Bradford John SURGICAL SUPERVISOR.CLEANING VALIDATION CONSULTANT Work Phone: [facility] 10-18-2022 13:22-0400 Respiratory rate 16 /min Bradford John SURGICAL SUPERVISOR.CLEANING VALIDATION CONSULTANT Work Phone: [facility] 10-18-2022 13:22-0400 Systolic blood pressure 114 mm[Hg] Bradford John SURGICAL SUPERVISOR.CLEANING VALIDATION CONSULTANT Work Phone: [facility] 06-27-2022 11:17-0500 Body weight 66.22 kg Bradford John SURGICAL SUPERVISOR.CLEANING VALIDATION CONSULTANT Work Phone: [facility] 06-27-2022 11:17-0500 Diastolic blood pressure 70 mm[Hg] Bradford John SURGICAL SUPERVISOR.CLEANING VALIDATION CONSULTANT Work Phone: [facility] 06-27-2022 11:17-0500 Heart rate 97 /min Bradford John SURGICAL SUPERVISOR.CLEANING VALIDATION CONSULTANT Work Phone: [facility] 06-27-2022 11:17-0500 Respiratory rate 16 /min Bradford John SURGICAL SUPERVISOR.CLEANING VALIDATION CONSULTANT Work Phone: [facility] 06-27-2022 11:17-0500 SaO2% (BldA) [Mass fraction] 97 % Bradford John SURGICAL SUPERVISOR.CLEANING VALIDATION CONSULTANT Work Phone: [facility] 06-27-2022 11:17-0500 Systolic blood pressure 110 mm[Hg] Bradford John SURGICAL SUPERVISOR.CLEANING VALIDATION CONSULTANT Work Phone: [facility] 05-24-2022 12:38-0500 Body height 160.7 cm Jackson Perdomo SURGICAL SUPERVISOR.HSE MANAGER Work Phone: [facility] 05-24-2022 12:38-0500 Body temperature 97 [degF] Raphael Perdomo SURGICAL SUPERVISOR.HSE MANAGER Work Phone: [facility] 05-24-2022 12:38-0500 Body weight 65.32 kg Raphael Perdomo SURGICAL SUPERVISOR.HSE MANAGER Work Phone: [facility] 05-24-2022 12:38-0500 Diastolic blood pressure 71 mm[Hg] Raphael Perdomo SURGICAL SUPERVISOR.HSE MANAGER Work Phone: [facility] 05-24-2022 12:38-0500 Heart rate 106 /min Raphael Perdomo SURGICAL SUPERVISOR.HSE MANAGER Work Phone: [facility] 05-24-2022 12:38-0500 Systolic blood pressure 104 mm[Hg] Raphael Perdomo SURGICAL SUPERVISOR.HSE MANAGER Work Phone: [facility] 04-18-2022 11:00-0500 Body temperature 97.11 [degF] Treatment Wstr Work Phone: [facility] 04-18-2022 11:00-0500 Diastolic blood pressure 69 mm[Hg] Treatment Wstr Work Phone: [facility] 04-18-2022 11:00-0500 Heart rate 100 /min Treatment Wstr Work Phone: [facility] 04-18-2022 11:00-0500 Systolic blood pressure 118 mm[Hg] Treatment Wstr Work Phone: [facility] 03-28-2022 13:50-0500 Body weight 63.5 kg Bradford John SURGICAL SUPERVISOR.CLEANING VALIDATION CONSULTANT Work Phone: [facility] 03-28-2022 13:50-0500 Diastolic blood pressure 68 mm[Hg] Bradford John SURGICAL SUPERVISOR.CLEANING VALIDATION CONSULTANT Work Phone: [facility] 03-28-2022 13:50-0500 Heart rate 106 /min Bradford John SURGICAL SUPERVISOR.CLEANING VALIDATION CONSULTANT Work Phone: [facility] 03-28-2022 13:50-0500 Respiratory rate 16 /min Bradford John SURGICAL SUPERVISOR.CLEANING VALIDATION CONSULTANT Work Phone: [facility] 03-28-2022 13:50-0500 SaO2% (BldA) [Mass fraction] 100 % Bradford John SURGICAL SUPERVISOR.CLEANING VALIDATION CONSULTANT Work Phone: [facility] 03-28-2022 13:50-0500 Systolic blood pressure 104 mm[Hg] Bradford John SURGICAL SUPERVISOR.CLEANING VALIDATION CONSULTANT Work Phone: [facility] 11-29-2021 09:35-0400 Body height 161.3 cm Sheela Celeste PA-C Work Phone: [facility] 11-29-2021 09:35-0400 Body weight 63.5 kg Sheela Booker PA-C Work Phone: [facility] 11-21-2021 13:25-0400 Body height 162 cm Raphael Perdomo SURGICAL SUPERVISOR.HSE MANAGER Work Phone: [facility] 11-21-2021 13:25-0400 Body temperature 97.81 [degF] Jackson Perdomo SURGICAL SUPERVISOR.HSE MANAGER Work Phone: [facility] 11-21-2021 13:25-0400 Body weight 63.5 kg Raphael Perdomo SURGICAL SUPERVISOR.HSE MANAGER Work Phone: [facility] 11-21-2021 13:25-0400 Diastolic blood pressure 81 mm[Hg] Jackson Perdomo SURGICAL SUPERVISOR.HSE MANAGER Work Phone: [facility] 11-21-2021 13:25-0400 Heart rate 106 /min Jackson Perdomo SURGICAL SUPERVISOR.HSE MANAGER Work Phone: [facility] 11-21-2021 13:25-0400 SaO2% (BldA) [Mass fraction] 96 % Raphael Perdomo SURGICAL SUPERVISOR.HSE MANAGER Work Phone: [facility] 11-21-2021 13:25-0400 Systolic blood pressure 121 mm[Hg] Raphael Perdomo SURGICAL SUPERVISOR.HSE MANAGER Work Phone: [facility] 10-23-2021 11:00-0400 Body temperature 97 [degF] Treatment Wstr Work Phone: [facility] 10-23-2021 11:00-0400 Diastolic blood pressure 66 mm[Hg] Treatment Wstr Work Phone: [facility] 10-23-2021 11:00-0400 Heart rate 94 /min Treatment Wstr Work Phone: [facility] 10-23-2021 11:00-0400 Respiratory rate 16 /min Treatment Wstr Work Phone: [facility] 10-23-2021 11:00-0400 SaO2% (BldA) [Mass fraction] 99 % Treatment Wstr Work Phone: [facility] 10-23-2021 11:00-0400 Systolic blood pressure 116 mm[Hg] Treatment Wstr Work Phone: [facility] 10-17-2021 09:14-0400 Body weight 63.05 kg Ruddy Cooper MD Work Phone: [facility] 10-17-2021 09:14-0400 Diastolic blood pressure 64 mm[Hg] Ruddy Cooper MD Work Phone: [facility] 10-17-2021 09:14-0400 Heart rate 90 /min Ruddy Cooper MD Work Phone: [facility] 10-17-2021 09:14-0400 SaO2% (BldA) [Mass fraction] 100 % Ruddy Cooper MD Work Phone: [facility] 10-17-2021 09:14-0400 Systolic blood pressure 122 mm[Hg] Ruddy Cooper MD Work Phone: [facility] 10-08-2021 12:10-0400 Body temperature 97.3 [degF] Ruiz Serrato SURGICAL SUPERVISOR.HSE MANAGER Work Phone: [facility] 10-08-2021 12:10-0400 Body weight 63.78 kg Ruiz Serrato SURGICAL SUPERVISOR.HSE MANAGER Work Phone: [facility] 10-08-2021 12:10-0400 Diastolic blood pressure 70 mm[Hg] Ruiz Pendlebailee SURGICAL SUPERVISOR.HSE MANAGER Work Phone: [facility] 10-08-2021 12:10-0400 Heart rate 103 /min Ruiz Serrato SURGICAL SUPERVISOR.HSE MANAGER Work Phone: [facility] 10-08-2021 12:10-0400 Respiratory rate 20 /min Ruiz Pendlondon SURGICAL SUPERVISOR.HSE MANAGER Work Phone: [facility] 10-08-2021 12:10-0400 SaO2% (BldA) [Mass fraction] 99 % Ruiz Rojelio SURGICAL SUPERVISOR.HSE MANAGER Work Phone: [facility] 10-08-2021 12:10-0400 Systolic blood pressure 96 mm[Hg] Ruiz Rojelio SURGICAL SUPERVISOR.HSE MANAGER Work Phone: [facility] 08-31-2021 16:38-0400 Body temperature 97.7 [degF] [facility] Work Phone: 08-31-2021 16:38-0400 Diastolic blood pressure 81 mm[Hg] [facility] Work Phone: 08-31-2021 16:38-0400 Heart rate 83 /min [facility] Work Phone: 08-31-2021 16:38-0400 Respiratory rate 18 /min [facility] Work Phone: 08-31-2021 16:38-0400 SaO2% (BldA) [Mass fraction] 98 % [facility] Work Phone: 08-31-2021 16:38-0400 Systolic blood pressure 106 mm[Hg] [facility] Work Phone: 08-31-2021 13:17-0400 Body height 161.01 cm [facility] Work Phone: 08-31-2021 13:17-0400 Body mass index (BMI) [Ratio] 24.8 kg/m2 [facility] Work Phone: 08-31-2021 13:17-0400 Body weight 64.35 kg [facility] Work Phone: Encounters Encounter Date Encounter Type Care Provider Facility Start: 12-16-2024 End: 12-16-2024 Margoth Cooper MD Work Phone: [facility] [place] Comment on above: Results Start: 12-14-2024 End: 12-15-2024 Telephone encounter Ruddy Cooper MD Work Phone: [facility] [place] Comment on above: Follow for Start: 12-13-2024 End: 12-13-2024 Office outpatient visit 25 minutes Pritesh Angel MD Work Phone: [facility] [place] Comment on above: Urinary tract infect ion without hematuria, site unspecified (Primary Dx); Dementia with other behavioral disturbance, unspecified dementia severity, unspecified dementia type (HCC); Frequent falls Start: 12-13-2024 End: 12-13-2024 ambulatory PRITESH ANGEL Facility:[facility] Start: 12-01-2024 End: 12-01-[address] Ruddy Cooper MD Work Phone: -[facility] Start: 12-01-2024 End: 12-01-2024 Kathryn Grande NP-C -[facility] Work Phone: Start: 12-01-2024 End: 12-01-2024 Dr. Ruddy Cooper MD Work Phone: -Emergency Department Work Phone: Start: 12-01-2024 End: 12-01-2024 Emergency department patient visit Dr. Ruddy Cooper MD Work Phone: -Emergency Department Start: 11-27-2024 ambulatory William JOHNSON Fa cility:[facility] Start: 11-27-2024 [facility] Start: 11-03-2024 ambulatory William JOHNSON Fa cility:[facility] Start: [facility]-03-[facility] Start: 11-02-2024 [facility] Start: 11-02-2024 End: 11-02-2024 Social Work Dea Dietz [facility] Primary Care Social Work Start: 11-02-2024 [facility] Start: 11-01-2024 End: 11-01-2024 ambulatory Kathryn Juniorsandro ADVERTISING EXECUTIVE -[facility] Start: 11-01-2024 End: 11-01-2024 Patient encounter procedure Kathryn Grande ADVERTISING EXECUTIVE-C -[facility] Work Phone: Start: 10-26-2024 End: 10-26-2024 Telephone encounter Ruddy Cooper MD Work Phone: [facility] [place] Comment on above: Release Of Medical R ecords Start: 10-25-2024 Non-patient / Non-visit Dr. Gita Vázquez [facility] Work Phone: Start: 10-25-2024 Dr. Fitz mckinnon [facility] Work Phone: Start: 10-24-2024 Non-patient / Non-visit Dr. Gita Vázquez [facility] Work Phone: Start: 10-24-2024 Dr. Fitz mckinnon [facility] Work Phone: Start: 10-23-2024 Non-patient / Non-visit Dr. Gita Vázquez [facility] Work Phone: Start: 10-23-2024 Dr. Fitz mckinnon DO [facility] Work Phone: Start: 10-22-2024 Non-patient / Non-visit Dr. Gita Vázquez [facility] Work Phone: Start: 10-22-2024 Dr. Fitz mckinnon [facility] Work Phone: Start: 10-22-2024 End: 10-22-2024 Social Work Dea Dietz [facility] Primary Care Social Work Comment on above: Food insecurity (Monica tosha Dx); Encounter for screening involving social determinants of health (SDoH) Start: 10-21-2024 Non-patient / [facility] Start: 10-21-2024 Dr. Fitz mckinnon [facility] Work Phone: Start: 10-20-2024 Non-patient / Non-visit Dr. Gita Vázquez [facility] Work Phone: Start: 10-20-2024 Dr. Fitz mckinnon [facility] Work Phone: Start: 10-19-2024 Non-patient / Non-visit Dr. Desiree qiu MD -[place] [facility] Work Phone: Start: 10-19-2024 End: 10-25-2024 ambulatory Ruddy Cooper Facility:[facility] Start: 10-19-2024 End: 10-25-2024 Evaluation and management of inpatient Dr. Desiree Awan MD -Medical Surgical 3 Work Phone: Start: 10-19-2024 End: 10-25-[address] Ruddy Cooper MD Work Phone: [facility] Work Phone: Start: 10-19-2024 End: 10-25-2024 Dr. Fitz Vázquez DO -[facility] Surgical 3 Work Phone: Start: 10-19-2024 End: 10-19-2024 Coordination of care plan Dea [facility] Primary Care Social Work Comment on above: Needs assistance wit community resources (Primary Dx); Coordination of complex care Start: 10-18-2024 End: 10-19-2024 [facility] Comment on above: Social Work Food insecurity (Monica givens Dx); Encounter for screening involving social determinants of health (SDoH) Judi's appt Fri Patient Update Start: 10-14-2024 End: 10-18-2024 Social Work Dea [facility] Primary Care Social Work Comment on above: Food insecurity (Monica givens Dx); Encounter for screening involving social determinants of health (SDoH) Start: 10-13-2024 End: 10-15-2024 Patient Outreach Mireya Thomas RN [employer] Management Comment on above: Transition Of Care ( TCM Initial Outreach//Discharged 10/12/24 [place]) Initial phone contact for Transitional Care Management Patient Update Transition Of Care ( Inbound call ) Transition Of Care ( TCM Outreach) Started Weekly phone contact (Recurring) for Transitional Care Management Home Health Orders Start: 10-12-2024 Non-patient / Non-visit Dr. Haley Baer MD [facility] Work Phone: Start: 10-12-2024 Dr. Luis Baer MD [facility] Work Phone: Start: 10-11-2024 Non-patient / Non-visit Dr. Haley Baer MD [facility] Work Phone: Start: 10-11-2024 Dr. Luis Baer MD [facility] Work Phone: Start: 10-10-2024 Non-patient / Non-visit Dr. Haley Baer MD [facility] Work Phone: Start: 10-10-2024 ambulatory Ruddy Caal Talelle Facilit y:[facility] Start: 10-10-2024 End: 10-12-2024 Evaluation and management of inpatient Dr. Luis Baer MD -Medical Surgical 3 Work Phone: Start: 10-10-2024 End: 10-12-2024 Dr. Luis Baer MD -[facility] 3 Work Phone: Start: 10-02-2024 End: 10-05-2024 ambulatory Bradford John SURGICAL SUPERVISOR.CLEANING VALIDATION CONSULTANT Work Phone: [facility] [place] Comment on above: Judi Pittman'zev [birth year]ust [birth year] 3 visit Start: 09-22-2024 End: 09-22-2024 ambulatory Mary Ann Gustafson MA [email or web address] Start: 09-22-2024 End: 09-22-2024 Patient encounter procedure Mary Ann Gustafson MA [facility] [place] Comment on above: Population Health Na vigation Outreach ([facility] ) Start: 09-14-2024 End: 09-14-2024 ambulatory RAPHAEL PERDOMO Facility:[facility] Start: 09-08-2024 End: 09-09-2024 Dr. [facility] Start: 09-08-2024 End: 09-09-2024 Emergency department patient visit Dr. Ruddy Cooper MD Work Phone: -Emergency Department Work Phone: Start: 09-08-2024 End: 09-08-2024 Telephone encounter Salome Perez QUARRY EQUIPMENT OPERATOR Navigation Start: 09-07-2024 End: 09-07-2024 Office outpatient visit 25 minutes Bradford Alvarados SURGICAL SUPERVISOR.CLEANING VALIDATION CONSULTANT Work Phone: [facility] [place] Comment on above: Frequent falls (Prim gilberto Dx); Failure to thrive in adult; Dementia with other behavioral disturbance, unspecified dementia severity, unspecified dementia type (HCC); Primary hypertension; Urinary tract infection without hematuria, site unspecified; Type 2 diabetes mellitus with diabetic neuropathy, without long-term current use of insulin (HCC); 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) Start: 09-07-2024 End: 09-07-2024 ambulatory [facility] Facility:[facility] Start: 09-05-2024 End: 09-07-2024 ambulatory Ruddy Cooper MD Work Phone: [facility] [place] Comment on above: Judi's current ment al state Start: 09-01-2024 End: 09-01-2024 Patient Outreach Lamar De Leon RN Work Phone: Dry [employer] Operator Management Comment on above: Transition Of Care I nitial phone contact for Transitional Care Management Started Weekly phone contact (Recurring) for Transitional Care Management Start: 08-30-2024 Non-patient / Non-visit Dr. Jose Kemp [facility] Work Phone: Start: 08-30-2024 Dr. Jose Dinh [facility] Work Phone: Start: 08-29-2024 Non-patient / Non-visit Dr. Liu Kemp [facility] Work Phone: Start: 08-29-2024 Dr. Veto Lynne [facility] Work Phone: Start: 08-28-2024 Non-patient / [facility] Work Phone: Start: 08-28-2024 Dr. Veto Lynne [facility] Work Phone: Start: 08-27-2024 Non-patient / Non-visit Dr. Hatfield [facility] Work Phone: Start: 08-27-2024 Dr. Veto Lynne [facility] Work Phone: Start: 08-26-2024 End: 08-26-2024 Telephone encounter Raphael Perdomo APRN.CNP Work Phone: Hematology/Oncology Comment on above: Patient Update Start: 08-26-2024 Non-patient / Non-visit Dr. Hatfield [facility] Work Phone: Start: 08-26-2024 Dr. Veto Lynne [facility] Work Phone: Start: 08-25-2024 ambulatory Veto aranda:[facility] Start: 08-25-2024 End: 08-30-2024 Evaluation and management of inpatient Dr. Jose Mariee DO -Medical Surgical 3 Work Phone: Start: 08-25-2024 End: 08-30-2024 Dr. Jose Mariee DO [facility] 3 Work Phone: Start: 08-24-2024 End: 08-24-2024 ambulatory Khris Salinas MD Work Phone: Neurology Comment on above: Status of Judi's te st results Start: 08-19-2024 End: 08-24-2024 ambulatory Ruddy Cooper MD Work Phone: [facility] [place] Comment on above: Urine test Start: 08-17-2024 [...] KHRIS SALINAS Facility:[facility] Start: 08-11-2024 End: 08-11-2024 ambulatory Ruddy Cooper MD Work Phone: [facility] [place] Comment on above: Preventative UTI Barb trum Dose Start: 08-11-2024 End: 10-11-2024 Follow-up encounter Althea VELA Work Phone: [facility] Start: 08-09-2024 End: 08-09-2024 ambulatory Raphael Perdomo SURGICAL SUPERVISOR.HSE MANAGER Work Phone: Hematology/Oncology Comment on above: Judi Pittman appt. M ay 1 Start: 08-09-2024 End: 08-09-2024 Office outpatient new 30 minutes Fitz Brown PA-C Work Phone: [facility] Comment on above: Urinary frequency (P rimary Dx); Acute UTI Start: 08-08-2024 End: 08-09-2024 ambulatory Raphael Perdomo SURGICAL SUPERVISOR.HSE MANAGER Work Phone: Hematology/Oncology Comment on above: Judi Pittman 08/26/24 appt. Start: 08-03-2024 End: 08-03-2024 Telephone encounter Salome ESQUIVEL Navigation Start: 07-21-2024 End: 07-21-2024 Telephone encounter Fitz Jones MD Work Phone: [facility] Comment on above: Patient Question Start: 06-29-2024 End: 08-29-2024 Follow-up encounter Bradford John APRN.CLEANING VALIDATION CONSULTANT Work Phone: [facility] [place] Start: 06-25-2024 End: 06-28-2024 Telephone encounter Salome ESQUIVEL Navigation Start: 06-22-2024 End: 06-22-2024 ambulatory [facility] Facility:[facility] Start: 06-22-2024 End: 06-22-2024 Nursing evaluation of patient and report Norris Young RN Work Phone: Endocrinology Comment on above: Type 2 diabetes lona itus with diabetic neuropathy, without long-term current use of insulin (HCC) (Primary Dx) Start: 06-21-2024 End: 06-23-2024 Telephone encounter Bradford John APRN.CLEANING VALIDATION CONSULTANT Work Phone: Diabetic Education [facility] Comment on above: [facility] Start: 06-21-2024 End: 06-22-2024 ambulatory Bradford John APRN.CLEANING VALIDATION CONSULTANT Work Phone: [facility] [place] Comment on above: Question about my mo ther Judi Pittman Start: 06-21-2024 End: 06-21-2024 Office outpatient visit 25 minutes Bradford John APRN.CLEANING VALIDATION CONSULTANT Work Phone: [facility] [place] Comment on above: Primary hypertension (Primary Dx); Type 2 diabetes mellitus with diabetic neuropathy, without long-term current use of insulin (HCC); Arthritis of hand; Vitamin D deficiency; Encounter for screening mammogram for breast cancer Start: 06-18-2024 End: 06-18-2024 ambulatory BRADFORD JOHN Facility:[facility] Start: 03-15-2024 End: 03-15-2024 ambulatory [facility] Facility:[facility] Start: 03-02-2024 End: 03-02-2024 ambulatory Monae Ch RN Work Phone: Dry House Operator Management Start: 03-02-2024 End: 03-02-2024 Patient encounter procedure Monae Ch RN Work Phone: Dry House Operator Management Comment on above: JENNIFER MEMBRENO RN ( ED Utilization Review per request of payor/) Start: 02-27-2024 End: 02-27-2024 Emergency department patient visit Ruddy Cooper Facility:[facility] Start: 02-26-2024 End: 02-26-2024 ambulatory [facility] Facility:[facility] Start: 02-26-2024 End: 02-26-2024 Subsequent hospital visit by physician Xr [facility] Work Phone: Radiology Comment on above: Arthritis of hand [M 19.049] Start: 02-26-2024 End: 02-26-2024 [facility] Start: 02-26-2024 End: 02-26-2024 Office outpatient visit 25 minutes Ruddy Cooper MD Work Phone: [facility] [place] Comment on above: Arthritis of hand (P rimary Dx); Type 2 diabetes mellitus with diabetic neuropathy, without long-term current use of insulin (HCC); Dupuytren's contracture; Vitamin D deficiency; Encounter for long-term current use of medication Start: 02-25-2024 End: 02-25-2024 ambulatory Raphael Perdomo APRN.HSE MANAGER Work Phone: Hematology/Oncology Comment on above: Invasive ductal carc inoma of breast, left (HCC) (Primary Dx); Ductal carcinoma in situ (DCIS) of right breast Start: 02-25-2024 End: 02-25-2024 Patient encounter procedure Raphael Perdomo APRN.HSE MANAGER Work Phone: Hematology/Oncology Start: 02-11-2024 End: 02-17-2024 Telephone encounter Ruddy Cooper MD Work Phone: [facility] [place] Comment on above: Patient Question Start: 01-27-2024 End: 01-27-2024 ambulatory Charleen Johnson PT [facility] Comment on above: Complaints of leg we akness (Primary Dx); Gait difficulty Start: 01-20-2024 End: 01-20-2024 ambulatory Charleen O'Casper PT [facility] Comment on above: Complaints of leg we akness (Primary Dx); Gait difficulty Start: 01-13-2024 End: 01-13-2024 ambulatory Charleen O'Casper PT [place] [facility] Comment on above: Complaints of leg we akness (Primary Dx); Gait difficulty Start: 01-07-2024 End: 01-08-2024 Documentation procedure Mammography Coordinator [facility] Department Start: 01-07-2024 End: 01-08-2024 Letter encounter Mammography Coordinator [facility] Department Start: 01-07-2024 End: 01-08-2024 Telephone encounter Raphael Perdomo APRN.HSE MANAGER Work Phone: Hematology/Oncology Comment on above: Patient Update Start: 01-06-2024 End: 01-06-2024 ambulatory Charleen O'Casper PT [facility] Comment on above: Complaints of leg we akness (Primary Dx); Gait difficulty Start: 01-06-2024 End: 01-06-2024 Subsequent hospital visit by physician [facility] Comment on above: Screening mammogram for breast cancer [Z12.31] Start: 01-02-2024 End: 01-02-2024 ambulatory [facility] Facility:[facility] Start: 01-01-2024 End: 01-01-2024 Telephone encounter Wesly Sepulveda APRN.HSE MANAGER Work Phone: [facility] Comment on above: Appointment Orders Start: 12-22-2023 End: 12-24-2023 Telephone encounter Ruddy Cooper MD Work Phone: Family Medicine [place] Comment on above: requesting med alert rx Medication Problem Start: 12-19-2023 End: 12-19-2023 Telephone encounter Ruddy Cooper MD Work Phone: Internal Medicine [place] Comment on above: Patient Update Start: 12-19-2023 End: 12-19-2023 [facility] Facility:[facility] Start: 12-19-2023 End: 12-19-2023 Office outpatient visit 25 minutes Bradford John APRN.CLEANING VALIDATION CONSULTANT Work Phone: [facility] [place] Comment on above: Hypertension (Primar y Dx); Syncope, unspecified syncope type; Type 2 diabetes mellitus with diabetic neuropathy, without long-term current use of insulin (HCC); Screening for diabetic retinopathy; Encounter for immunization; Tinnitus of both ears; 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); Complaints of leg weakness Start: 12-16-2023 End: 12-16-2023 ambulatory Charleen O'Casper PT [facility] Comment on above: Complaints of leg we akness (Primary Dx); Gait difficulty Start: 12-10-2023 End: 12-10-2023 Patient encounter procedure Ruddy Cooper MD Work Phone: [facility] [place] Comment on above: Patient left without being seen (Primary Dx) Start: 12-08-2023 End: 12-08-2023 ambulatory Charleen O'Casper PT [facility] Comment on above: Complaints of leg we akness (Primary Dx); Gait difficulty Start: 11-26-2023 End: 11-26-2023 ambulatory Charleen O'Casper PT [facility] Comment on above: Complaints of leg we akness (Primary Dx); Gait difficulty Start: 11-25-2023 Refill Polo Caal O Work Phone: Hematology/Oncology Comment on above: Refill Request Start: 11-25-2023 Telephone encounter Bradford walker APRN.CLEANING VALIDATION CONSULTANT Work Phone: Family [facility] Comment on above: Medication Question Start: 11-24-2023 End: 11-24-2023 ambulatory Charleen O'Casper PT [facility] Comment on above: Complaints of leg we akness (Primary Dx); Gait difficulty Start: 11-19-2023 End: 11-19-2023 ambulatory Charleen O'Casper PT [facility] Comment on above: Complaints of leg we akness (Primary Dx); Gait difficulty Start: 11-17-2023 End: 11-17-2023 ambulatory Charleen O'Casper PT [facility] Comment on above: Complaints of leg we akness (Primary Dx); Gait difficulty Start: 11-10-2023 End: 11-10-2023 ambulatory Marissa Lobato LATIN PROFESSOR Work Phone: [facility] Comment on above: Complaints of leg we akness (Primary Dx); Gait difficulty Start: 11-06-2023 End: 11-06-2023 ambulatory Charleen O'Casper PT [facility] Comment on above: Complaints of leg we akness (Primary Dx); Gait difficulty Start: 11-03-2023 End: 11-03-2023 ambulatory Charleen O'Casper PT [facility] Comment on above: Complaints of leg we akness (Primary Dx); Gait difficulty Start: 10-29-2023 End: 10-29-2023 ambulatory Charleen O'Casper PT [facility] Comment on above: Complaints of leg we akness (Primary Dx); Gait difficulty Start: 10-27-2023 End: 10-27-2023 ambulatory Charleen O'Casper PT [facility] Comment on above: Complaints of leg we akness (Primary Dx); Gait difficulty Start: 10-22-2023 Telephone encounter Ruddy almeida MD Work Phone: [facility] [place] Comment on above: Concerned for pt-see note; Vomiting; Shortness of Breath Start: 10-22-2023 End: 10-22-2023 ambulatory Charleen O'Casper PT [facility] Comment on above: Complaints of leg we akness (Primary Dx); Gait difficulty Start: 10-20-2023 End: 10-20-2023 ambulatory Charleen O'Csaper PT [facility] Comment on above: Complaints of leg we akness (Primary Dx); Gait difficulty Start: 10-14-2023 End: 10-14-2023 Subsequent hospital visit by physician Patricia [facility] Work Phone: Radiology Comment on above: Acute left ankle daren n [M25.572] Start: 10-14-2023 End: 10-14-2023 Office outpatient visit 15 minutes Ruiz Serrato APRN.CNP Work Phone: [facility] Comment on above: Acute left ankle daren n (Primary Dx); Foot pain, left Start: 10-02-2023 Telephone encounter Ruddy almeida MD Work Phone: Internal Medicine [place] Comment on above: Results Start: 09-29-2023 End: 09-29-2023 ambulatory Charleen Johnson PT [place] [facility] Comment on above: Gait difficulty (Monica tosha Dx); Complaints of leg weakness Start: 09-26-2023 End: 09-26-2023 Subsequent hospital visit by physician [facility] ([facility]) Work Phone: Cat Scan Comment on above: History of abdominal surgery [Z98.890] Start: 09-15-2023 Refill Bradford John APRN.CLEANING VALIDATION CONSULTANT Work Phone: Internal Medicine [place] Comment on above: Refill Request Start: 09-10-2023 End: 09-10-2023 ambulatory Treatment Rm 13 [place] [facility] Work Phone: Hematology/Oncology Comment on above: Osteoporosis, unspec ified (Primary Dx) Invasive ductal carc inoma of breast, left (HCC) (Primary Dx); Ductal carcinoma in situ (DCIS) of right breast Start: 09-10-2023 End: 09-10-2023 Patient encounter procedure Raphael Perdomo APRN.HSE MANAGER Work Phone: Hematology/Oncology Start: 09-08-2023 End: 09-08-2023 Office outpatient visit 25 minutes Bradford John APRN.CLEANING VALIDATION CONSULTANT Work Phone: [facility] [place] Comment on above: Screening for diabet ic [...] Ruddy almeida MD Work Phone: [facility] [place] Comment on above: results Start: 05-26-2023 End: 05-26-2023 Office outpatient visit 40 minutes Ruddy Cooper MD Work Phone: Internal Medicine [place] Comment on above: Peripheral arterial disease (HCC) (Primary Dx); Primary hypertension; Type 2 diabetes mellitus with diabetic neuropathy, without long-term current use of insulin (HCC); Tinnitus of both ears; Vitamin D deficiency; Mixed hyperlipidemia; Muscle cramping Start: 04-03-2023 End: 04-03-2023 ambulatory Raphael Perdomo SURGICAL SUPERVISOR.HSE MANAGER Work Phone: Hematology/Oncology Comment on above: Invasive ductal carc inoma of breast, left (HCC) (Primary Dx); Ductal carcinoma in situ (DCIS) of right breast Start: 04-03-2023 End: 04-03-2023 Patient encounter procedure Raphael Perdomo APRN.HSE MANAGER Work Phone: [facility] Start: 03-11-2023 Telephone encounter Fitz simmons MD Work Phone: Endovascular Center Comment on above: Results Start: 02-27-2023 End: 02-27-2023 Subsequent hospital visit by physician Mri [facility] W[facility] (I-Stat/1.5t) Work Phone: Radiology Comment on above: Intracranial aneurys m [I67.1] Start: 02-26-2023 Telephone encounter Ruddy almeida MD Work Phone: Internal Medicine [place] Comment on above: Appointment Start: 01-03-2023 End: 01-03-2023 Subsequent hospital visit by physician Diagnostic Mammo [facility] Stro Mammography Comment on above: Bilateral fibrocysti c breast changes [N60.11, N60.12] Start: 12-24-2022 End: 12-24-2022 Patient encounter procedure Sheela Celeste PA-C Work Phone: Breast Center Comment on above: Bilateral fibrocysti c breast [...] Orders Only Sheela Celeste PA-C Work Phone: Breast Center Comment on above: Screening breast exa mination (Primary Dx) Start: 11-29-2022 E-mail encounter karen madrid caregiver [facility] Provider [facility] Start: 11-29-2022 Follow-up encounter Ccf Provider [facility] Comment on above: Follow up Start: 11-27-2022 Telephone encounter Raphael draper SURGICAL SUPERVISOR.HSE MANAGER Work Phone: Hematology/Oncology Comment on above: Medication Problem Start: 11-22-2022 Telephone encounter Bradford walker SURGICAL SUPERVISOR.CLEANING VALIDATION CONSULTANT Work Phone: Internal [facility] [place] Comment on above: Results Start: 10-18-2022 End: 10-18-2022 Office outpatient visit 15 minutes Bradford John SURGICAL SUPERVISOR.CLEANING VALIDATION CONSULTANT Work Phone: Internal Medicine [place] Comment on above: Primary hypertension (Primary Dx); Encounter for immunization; Need for shingles vaccine; History of extraction of renal calculus; History of hydronephrosis Start: 10-10-2022 Telephone encounter Raphael draper SURGICAL SUPERVISOR.HSE MANAGER Work Phone: Hematology/Oncology Comment on above: Patient Update Start: 09-30-2022 Telephone encounter Ruddy almeida MD Work Phone: Internal [facility] [place] Comment on above: Patient Question Start: 09-04-2022 Refill Ruddy brothers MD Work Phone: Family Medicine [place] Comment on above: Refill Request Start: 08-28-2022 Refill Ruddy brothers MD Work Phone: [facility] [place] Start: 08-06-2022 Refill Ruddy brothers MD Work Phone: Internal Medicine [place] Comment on above: Refill Request Start: 07-24-2022 Documentation procedure Mammog estela Coordinator [facility] Start: 07-24-2022 Letter encounter Mammography Coordinator [facility] Department Start: 07-24-2022 End: 07-24-2022 Subsequent hospital visit by physician Diagnostic Mammo [facility] Mammogram Start: 06-27-2022 End: 06-27-2022 Office outpatient visit 25 minutes Bradford John APRN.CLEANING VALIDATION CONSULTANT Work Phone: Internal Medicine [place] Comment on above: Type 2 diabetes lona itus with diabetic neuropathy, without long-term current use of insulin (HCC) (Primary Dx); Vitamin D deficiency; Insomnia, unspecified type Start: 05-24-2022 End: 05-24-2022 ambulatory Raphael Perdomo APRN.HSE MANAGER Work Phone: Hematology/Oncology Comment on above: Invasive ductal carc inoma of breast, left (HCC) (Primary Dx); Ductal carcinoma in situ (DCIS) of right breast Start: 05-24-2022 End: 05-24-2022 Patient encounter procedure Raphael Perdomo APRN.HSE MANAGER Work Phone: [place] [facility] Start: 04-24-2022 Refill Ruddy brothers MD Work Phone: [facility] [place] Comment on above: Refill Request Start: 04-18-2022 End: 04-18-2022 ambulatory Treatment Rm 11 [place] [facility] Work Phone: Hematology/Oncology Comment on above: Osteoporosis, unspec ified (Primary Dx) Start: 03-29-2022 Telephone encounter Raphael draper APRN.HSE MANAGER Work Phone: Hematology/Oncology Comment on above: Appointment Start: 03-28-2022 End: 03-28-2022 Office outpatient visit 25 minutes Bradford John APRN.CLEANING VALIDATION CONSULTANT Work Phone: Internal Medicine [place] Comment on above: Preop exam for inter nal medicine (Primary Dx); Type 2 diabetes mellitus with diabetic neuropathy, without long-term current use of insulin (HCC); Need for shingles vaccine; Encounter for immunization; Screening for diabetic retinopathy; Vitamin D deficiency Start: 03-28-2022 End: 03-28-2022 Patient encounter status Bradford John APRN.CLEANING VALIDATION CONSULTANT Work Phone: [facility] [place] Start: 03-01-2022 Orders Only Fitz Jones MD Work Phone: Endovascular Center Comment on above: Intracranial aneurys m (Primary Dx); Nonruptured cerebral aneurysm Start: 02-18-2022 End: 02-18-2022 Subsequent hospital visit by physician Mri [facility] (I-Stat/1.5t) Work Phone: Radiology Comment on above: 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] Start: 01-14-2022 Telephone encounter Monae Muhammad RN (R n) Breast Center Comment on above: Transformer Builder - O ther (Sending records to [facility]) Start: 01-07-2022 Telephone encounter Michael collins MD Work Phone: Plastic Surgery Comment on above: Patient Question (Horacio dupree called and had question about inplants after radiation.) Start: 12-19-2021 End: 12-19-2021 ambulatory Julianne Saab PT Work Phone: [facility] Comment on above: 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) Start: 12-17-2021 End: 12-17-2021 ambulatory Julianne Saab PT Work Phone: [facility] Comment on above: 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) Start: 12-16-2021 Orders Only Ruddy brothers MD Work Phone: Internal Medicine [place] Comment on above: Vitamin D deficiency (Primary Dx); Type 2 diabetes mellitus with diabetic neuropathy, without long-term current use of insulin (HCC); Generalized anxiety disorder; Mixed hyperlipidemia Start: 12-13-2021 Telephone encounter Fitz simmons MD Work Phone: Cerebrovascular Center Comment on above: Patient Question Start: 12-12-2021 End: 12-12-2021 ambulatory Julianne Saab PT Work Phone: [facility] Comment on above: 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) Start: 12-10-2021 End: 12-10-2021 ambulatory Julianne Saab PT Work Phone: [facility] Comment on above: 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) Start: 12-05-2021 End: 12-05-2021 ambulatory Nunu Sukh LATIN PROFESSOR Work Phone: [facility] Comment on above: 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) Start: 12-05-2021 Telephone encounter Fitz simmons MD Work Phone: [facility] Comment on above: Medical Clearance (R eceived fax request for surgical clearance from [facility] - scanned into mktg) Start: 12-04-2021 Refill Raphael cuevas APRN.HSE MANAGER Work Phone: Hematology/Oncology Comment on above: Refill Request Start: 12-03-2021 End: 12-03-2021 ambulatory Nunu Sukh LATIN PROFESSOR Work Phone: [facility] Comment on above: 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) Start: 12-03-2021 E-mail encounter fro m caregiver Monae Mccormack RN [facility] Start: 11-29-2021 Documentation procedure Mammog estela Coordinator [facility] Start: 11-29-2021 Letter encounter Mammography Coordinator [facility] Department Start: 11-29-2021 End: 11-29-2021 Subsequent hospital visit by physician Screen Mammo [facility] Start: 11-29-2021 End: 11-29-2021 Patient encounter procedure Sheela Celeste PA-C Work Phone: Breast Center Comment on above: Bilateral fibrocysti c breast changes (Primary Dx); Personal history of breast cancer; S/P bilateral breast lumpectomy; Use of anastrozole; Encounter for screening mammogram for malignant neoplasm of breast Start: 11-28-2021 End: 11-28-2021 ambulatory Julianne Saab PT Work Phone: [facility] Comment on above: 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) Start: 11-26-2021 End: 11-26-2021 ambulatory Julianne Saab PT Work Phone: [facility] Comment on above: 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) Start: 11-22-2021 End: 11-22-2021 ambulatory Julianne Saab PT Work Phone: [facility] Comment on above: 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) Start: 11-21-2021 End: 11-21-2021 ambulatory Raphaelpravin Perdomo SURGICAL SUPERVISOR.HSE MANAGER Work Phone: Hematology/Oncology Comment on above: Invasive ductal carc inoma of breast, left (HCC) (Primary Dx); Ductal carcinoma in situ (DCIS) of right breast Start: 11-21-2021 End: 11-21-2021 Patient encounter procedure Raphael Perdomo SURGICAL SUPERVISOR.HSE MANAGER Work Phone: [facility] Start: 11-19-2021 End: 11-19-2021 ambulatory Julianne Asab PT Work Phone: [facility] Comment on above: 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) Start: 11-15-2021 End: 11-15-2021 ambulatory Julianne Saab PT Work Phone: [facility] Comment on above: 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) Start: 11-13-2021 End: 11-13-2021 ambulatory Julianne Saab PT Work Phone: [facility] Comment on above: 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) Start: 10-31-2021 End: 10-31-2021 ambulatory Julianne Saab PT Work Phone: [facility] Comment on above: 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) Start: 10-23-2021 End: 10-23-2021 ambulatory Treatment Rm 12 [facility] Work Phone: Hematology/Oncology Comment on above: Osteoporosis, unspec ified (Primary Dx) Start: 10-17-2021 End: 10-17-2021 Office outpatient visit 25 minutes Ruddy Cooper MD Work Phone: Internal Medicine [place] Comment on above: Insomnia, unspecifie d type (Primary Dx); Anxiety; Vitamin D deficiency; Type 2 diabetes mellitus with diabetic neuropathy, without long-term current use of insulin (HCC); Encounter for long-term current use of medication; Malignant neoplasm of nipple of left breast in female, unspecified estrogen receptor status (HCC) Start: 10-08-2021 End: 10-08-2021 Subsequent hospital visit by physician Patricia [facility] Work Phone: Radiology Comment on above: Acute right ankle pa in [M25.571] Start: 10-08-2021 End: 10-08-2021 Patient encounter procedure Ruiz Serrato APRN.CNP Work Phone: [place] [facility] Comment on above: Acute right ankle pa in (Primary Dx) Start: 09-05-2021 Refill Ruddy brothers MD Work Phone: Internal Medicine [place] Comment on above: Refill Request Start: 08-29-2021 End: 08-31-2021 [facility] Start: 08-07-2021 End: 08-07-2021 Subsequent hospital visit by physician Radio General Lurdes Macias Work Phone: Radiology Comment on above: Right knee pain, uns pecified chronicity [M25.561] Start: 08-06-2021 Telephone encounter Candelario woodward MD Work Phone: Orthopaedics Comment on above: Appointment (constru ction ) Start: 12-25-2020 End: 12-25-2020 Subsequent hospital visit by physician Patricia [facility] [place] Work Phone: Radiology Comment on above: Cough [R05] Start: 05-06-2020 End: 05-06-2020 Subsequent hospital visit by physician Patricia [facility] Work Phone: Radiology Comment on above: Acute left ankle daren n [M25.572] Procedures Date Procedure Procedure Detail Performing Clinician Start: 12-13-2024 Urnls dip stick/tabl et rgnt auto w/o microscopy [facility] Provider Start: 12-01-2024 Benzodiazepine measurement, urine Dr. Ruddy Cooper MD Work Phone: Start: 12-01-2024 Cocaine measurement, urine Dr. Ruddy Cooper MD Work Phone: Start: 12-01-2024 Methadone measuremen t, urine Dr. Ruddy Cooper MD Work Phone: Start: 12-01-[address] Ruddy Cooper MD Work Phone: Start: 12-01-2024 Urine microscopy: re d cells Dr. Ruddy Cooper MD Work Phone: Start: 12-01-[address] Ruddy Cooper MD Work Phone: Start: 12-01-2024 Urnls dip stick/tabl et reagent auto microscopy Dr. Ruddy Cooper MD Work Phone: Start: 12-01-2024 Blood count smear mc rscp w/mnl difrntl wbc count Dr. Ruddy Cooper MD Work Phone: Start: 12-01-[address] Ruddy Cooper MD Work Phone: Start: 12-01-2024 Mean corpuscular hemoglobin concentration determination Dr. Ruddy Cooper MD Work Phone: Start: 12-01-2024 Nucleated red blood cell count procedure Dr. Ruddy Cooper MD Work Phone: Start: 12-01-2024 Platelet mean volume determination Dr. Ruddy Cooper MD Work Phone: Start: 12-01-2024 CT of head without contrast Dr. Ruddy Cooper MD Work Phone: Start: 11-27-2024 Urnls dip stick/tabl et reagent auto microscopy Kathryn Grande ADVERTISING EXECUTIVE-C Work Phone: Start: 11-27-2024 Urine culture Kathryn don ADVERTISING EXECUTIVE-C Work Phone: Start: 11-03-[address] Ruddy Cooper MD Work Phone: Start: 11-02-2024 Blood count smear mc rscp w/mnl difrntl wbc count Dr. Ruddy Cooper MD Work Phone: Start: 11-02-2024 Mean corpuscular hemoglobin concentration determination Dr. Ruddy Cooper MD Work Phone: Start: 11-02-2024 Nucleated red blood cell count procedure Dr. Ruddy Cooper MD Work Phone: Start: 11-02-2024 Platelet mean volume determination Dr. Ruddy Cooper MD Work Phone: Start: 10-20-2024 Blood count smear mc rscp w/mnl difrntl wbc count Dr. Ruddy Cooper MD Work Phone: Start: 10-20-[address] Ruddy Cooper MD Work Phone: Start: 10-20-2024 Mean corpuscular hemoglobin concentration determination Dr. Ruddy Cooper MD Work Phone: Start: 10-20-2024 Nucleated red blood cell count procedure Dr. Ruddy Cooper MD Work Phone: Start: 10-20-2024 Platelet mean volume determination Dr. Ruddy Cooper MD Work Phone: Start: 10-19-[address] Ruddy Cooper MD Work Phone: Start: 10-19-2024 Benzodiazepine measurement, urine Dr. Ruddy Cooper MD Work Phone: Start: 10-19-2024 Cocaine measurement, urine Dr. Ruddy Cooper MD Work Phone: Start: 10-19-2024 Methadone measuremen t, urine Dr. Ruddy Cooper MD Work Phone: Start: 10-19-[address] Ruddy Cooepr MD Work Phone: Start: 10-19-2024 Urine microscopy: re d cells Dr. Ruddy Cooper MD Work Phone: Start: 10-19-[address] Ruddy Cooper MD Work Phone: Start: 10-19-2024 Urnls dip stick/tabl et reagent auto microscopy Dr. Ruddy Cooper MD Work Phone: Start: 10-19-2024 CT of head without contrast Dr. Ruddy Cooper MD Work Phone: Start: 10-19-[address] Ruddy Cooper MD Work Phone: Start: 10-19-2024 X-ray of chest, PA a nd lateral views Dr. Ruddy Cooper MD Work Phone: Start: 10-11-2024 Blood count smear mc rscp w/mnl difrntl wbc count Dr. Ruddy Cooper MD Work Phone: Start: 10-11-[address] Ruddy Cooper MD Work Phone: Start: 10-11-2024 Mean corpuscular hemoglobin concentration determination Dr. Ruddy Cooper MD Work Phone: Start: 10-11-2024 Nucleated red blood cell count procedure Dr. Ruddy Cooper MD Work Phone: Start: 10-11-2024 Platelet mean volume determination Dr. Ruddy Cooper MD Work Phone: Start: 10-10-[address] Ericka Cooper MD Work Phone: Start: 10-10-2024 Urine microscopy: re d cells Dr. Ruddy Cooper MD Work Phone: Start: [...] Ruddy Cooper MD Work Phone: Start: 10-10-2024 Dr. Ruddy thomas MD Work Phone: Start: 09-08-2024 Blood count smear mc rscp w/mnl difrntl wbc count Dr. Ruddy Cooper MD Work Phone: Start: 09-08-[address] Ruddy Cooper MD Work Phone: Start: 09-08-2024 Mean corpuscular hemoglobin concentration determination Dr. Ruddy Cooper MD Work Phone: Start: 09-08-2024 Nucleated red blood cell count procedure Dr. Ruddy Cooper MD Work Phone: Start: 09-08-2024 Platelet mean volume determination Dr. Ruddy Cooper MD Work Phone: Start: 08-30-[address] Ruddy Cooper MD Work Phone: Start: 08-30-2024 Mean corpuscular hemoglobin concentration determination Dr. Ruddy Cooper MD Work Phone: Start: 08-30-2024 Platelet mean volume determination Dr. Ruddy Cooper MD Work Phone: Start: 08-26-2024 Blood count smear mc rscp w/mnl difrntl wbc count Dr. Ruddy Cooper MD Work Phone: Start: 08-26-2024 Nucleated red blood cell count procedure Dr. Ruddy Cooper MD Work Phone: Start: 08-25-2024 Urine microscopy: re d cells Dr. Ruddy Cooper MD Work Phone: Start: 08-25-2024 Urnls dip stick/tabl et reagent auto microscopy Dr. Ruddy Cooper MD Work Phone: Start: 08-25-2024 Calculation of international normalized ratio Dr. Ruddy Cooper MD Work Phone: Start: [...] et rgnt auto w/o microscopy Charleen Alejandre SURGICAL SUPERVISOR.HSE MANAGER Work Phone: Start: 01-06-2024 Screening digital br east tomosynthesis bi [facility] SURGICAL SUPERVISOR.CLEANING VALIDATION CONSULTANT Work Phone: Start: 10-14-2023 Radex ankle complete minimum 3 views Ruiz Serrato SURGICAL SUPERVISOR.HSE MANAGER Work Phone: Start: 02-27-2023 Mra head w/o & w/con trast material Adeline Mares SURGICAL SUPERVISOR.HSE MANAGER Work Phone: Start: 01-03-2023 Us breast uni real t jordana with image limited Sheela Celeste PA-C Work Phone: Start: 01-03-2023 Digital breast tomosynthesis bilateral Sheelatiffanie Celeste PA-C Work Phone: Start: 07-24-2022 Digital breast tomosynthesis unilateral [facility] Provider Start: 02-18-2022 Mra head w/o & w/con trast material Gamaliel Alexys SURGICAL SUPERVISOR.HSE MANAGER Work Phone: Start: 11-29-2021 WILLIE SCREENING W AVNI Er ikmaite Celeste PA-C Work Phone: Start: 10-08-2021 Radex ankle complete minimum 3 views Ruiz Serrato SURGICAL SUPERVISOR.HSE MANAGER Work Phone: Start: 08-31-2021 Extracorporeal shock wave lithotripsy Start: 08-30-2021 End: 08-30-2021 Viral antigen assay Start: 08-30-2021 Diagnostic radiograp hy of abdomen Start: 08-29-2021 CT of abdomen and pe lvis without contrast Start: 08-07-2021 Radiologic examinati on knee 3 views Rigoberto Chase SURGICAL SUPERVISOR.HSE MANAGER Work Phone: Start: 12-25-2020 Radiologic exam ches t 2 views Vivi Pedroza SURGICAL SUPERVISOR.HSE MANAGER Work Phone: Start: 05-06-2020 Radex ankle complete minimum 3 views Marbin Burgess MD Work Phone: Start: 08-18-2017 Colonoscopy Candelario woodward MD Work Phone: Start: 08-13-2017 Colonoscopy Julianne Hernandezri son PT Work Phone: H/O: surgery History of extra ction of renal calculus Bradford John SURGICAL SUPERVISOR.CLEANING VALIDATION CONSULTANT Work Phone: H/O: surgery History of abdom inal surgery Bradford John SURGICAL SUPERVISOR.CLEANING VALIDATION CONSULTANT Work Phone: H/O: surgery History of abdom [...] Treatment Date Care Activity Detail Author Start: 12-13-2025 Annual PCP Team Chronic Disease Visit Annual PCP Team Chronic Disease Visit [facility] Start: 09-14-2025 BP Controlled (<130/80) BP Controlled (<130/80) [facility] Start: 09-07-2025 BP Controlled (<130/80) BP Controlled (<130/80) [facility] Start: 08-17-2025 Hepatitis B screening Urine Albumin:Creatinine Ratio [facility] Start: 08-17-2025 Hepatitis B surface antibody level LDL Cholesterol [facility] Start: 08-16-2025 BP Controlled (<130/80) BP Controlled (<130/80) [facility] Start: 06-21-2025 BP Controlled (<130/80) BP Controlled (<130/80) [facility] Start: 03-16-2025 End: 03-16-2025 ambulatory 03/16/2025 1:00 PM EST Visit (SP) Office Hematology/Oncology [address] [place], [place] [id number] Raphael Perdomo APRN.HSE MANAGER [address] [place] [address] 6 MTH OV* Hematology/Oncology Comment on above: 6 MTH OV* Start: 03-08-2025 End: 03-08-2025 Patient encounter procedure 03/08/2025 1:00 PM EST Office Visit NEUROLOGY [address] [place], [place] [id number] Melani Zuniga, SURGICAL SUPERVISOR.HSE MANAGER [address] [place] [address] Residual Aneurysm NEUROLOGY Comment on above: Residual Aneurysm Start: 03-01-2025 End: 03-01-2025 Patient encounter procedure 03/01/2025 1:00 PM EST Appointment [facility] [address] [facility] [place] [address] Dx: 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] Cat Scan Comment on above: Dx: 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 ] Start: 02-25-2025 Annual PCP Team Chronic Disease Visit Annual PCP Team Chronic Disease Visit [facility] Start: 02-25-2025 BP Controlled (<130/80) BP Controlled (<130/80) [facility] Start: 01-24-2025 End: 01-24-2025 Patient encounter procedure 01/24/2025 2:00 PM EDT Office Visit Internal Medicine [place] [address] [place] [address] Bradford John APRN.CLEANING VALIDATION CONSULTANT [address] [place] [address] 6 MTH Medicare Wellness Internal Medicine [place] Comment on above: 6 MTH Medicare Wellness Start: 01-06-2025 End: 01-06-2025 Patient encounter procedure Mammogram Comment on above: Encounter for screening mammogram for br east cancer [Z12.31] Dx: 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, unspecified dementia severity, unspecified dementia type (HCC) [F03.918]; Frequent falls [R29.6]; Failure to thrive in adult [R62.7] Start: 12-27-2024 Influenza vaccination [facility] Start: 12-18-2024 BP Controlled (<130/80) BP Controlled (<130/80) [facility] Start: 12-16-2024 Hemoglobin A1c measurement HbA1C [facility] Start: 12-11-2024 Glaucoma screening Dilated Retinal Exam [facility] Start: 12-09-2024 Annual PCP Team Chronic Disease Visit Annual PCP Team Chronic Disease Visit [facility] Start: 12-06-2024 End: 12-06-2024 Patient encounter procedure 12/06/2024 1:00 PM EDT Office Visit Internal Medicine [place] [address] [place] [address] Bradford John APRN.CLEANING VALIDATION CONSULTANT [address] [place] [address] 2024 Medicare Wellness Z00.00/HCC Gap Closure [facility] [place] Comment on above: 2024 Medicare Wellness Z00.00/HCC Gap Cl osure Start: 12-01-2024 End: 12-01-2024 [facility] Start: 11-25-2024 End: 11-25-2024 Patient encounter procedure 11/25/2024 1:30 PM EDT Office Visit Geriatrics [address] [place] [address] Zabrina Bartlett MD [address] [place] [address] Dementia with other behavioral disturbance, unspecified dementia [...] PM EDT Appointment Radiology [address] [place] [id number] BONE DENSITY Radiology Comment on above: BONE DENSITY Start: 11-10-2024 End: 11-10-2024 Patient encounter procedure 11/10/2024 1:15 PM EDT Office Visit Endocrinology [address] [place] [address] Naty Cho APRN.HSE MANAGER [address] [place] [address] diabetes Endocrinology Comment on above: diabetes Start: 11-04-2024 Screening for osteoporosis Bone Density Screening [facility] Start: 10-27-2024 End: 10-27-2024 Patient encounter procedure 10/27/2024 10:30 AM EDT Office Visit Geriatrics [address] [place] [address] Zabrina Bartlett MD [address] [place] [address] Dementia with other behavioral disturbance, unspecified dementia severity, unspecified dementia type (HCC) [F03.918]; Frequent falls [R29.6]; Failure to thrive in adult [R62.7] Geriatrics Comment on above: Dementia with other behavioral disturban ce, unspecified dementia severity, unspecified dementia type (HCC) [F03.918]; Frequent falls [R29.6]; Failure to thrive in adult [R62.7] Start: 10-25-2024 Influenza vaccination Influenza Vaccine (#1) [place] [facility] Comment on above: Postponed from 12/28/2023 (Declined at t his time) Start: 10-25-2024 Patient discharge [facility] Start: 10-20-2024 [facility] Start: 10-19-2024 Application of intermittent pneumatic compression device [facility] Start: 10-19-2024 Following clinical pathway protocol [facility] Start: 10-19-2024 Assessment of risk of venous thromboembolism [facility] Start: 10-19-2024 Care regimes management [facility] Start: 10-19-2024 Insertion of catheter into peripheral vein [facility] Start: 10-19-2024 Notification of physician [facility] Start: 10-19-2024 Providing care according to standard [facility] Start: 10-19-2024 Provision of activity privileges [facility] Start: 10-19-2024 Referral to occupational therapist [facility] Start: 10-19-2024 Referral to service [facility] Start: 10-19-2024 End: 10-19-2024 [facility] Start: 10-19-2024 Verification routine [facility] Start: 10-19-2024 Admission procedure [facility] Start: 10-19-2024 Hospital admission, emergency, from emergency room, medical nature [facility] Start: 10-19-2024 End: 01-18-2025 Urinalysis complete panel - Urine URINALYSIS (WITH MICROSCOPIC) WITH CULTURE IF INDICATED Lab Routine UTI symptoms Expected: 10/19/2024, Expires: 01/18/2025 [facility] Work Phone: Comment on above: Expected: 10/19/2024, Expires: Start: 10-19-2024 [facility] Start: 10-19-2024 End: 10-19-2024 Patient encounter procedure 10/19/2024 10:40 AM EDT Office Visit [facility] [place] [address] [place] [address] Bradford John, SURGICAL SUPERVISOR.CLEANING VALIDATION CONSULTANT [address] [place] [address] [facility] UTI/confusion [facility] [place] Comment on above: [facility] UTI/confusion Start: 10-18-2024 End: 10-18-2024 Patient encounter procedure 10/18/2024 11:40 AM EDT Office Visit [facility] [place] [address] [place] [address] Bradford John, SURGICAL SUPERVISOR.CLEANING VALIDATION CONSULTANT [address] [place], [place] [address] [facility] UTI/confusion [facility] [place] Comment on above: [facility] UTI/confusion Start: 10-14-2024 End: 10-14-2024 Patient encounter procedure 10/14/2024 1:30 PM EDT Office Visit Geriatrics [address] [place], [place] [id number] Zabrina Bartlett MD [address] [place], [place] [address] Dementia with other behavioral disturbance, unspecified dementia severity, unspecified dementia type (HCC) [F03.918]; Frequent falls [R29.6]; Failure to thrive in adult [R62.7] Geriatrics Comment on above: Dementia with other behavioral disturban ce, unspecified dementia severity, unspecified dementia type (HCC) [F03.918]; Frequent falls [R29.6]; Failure to thrive in adult [R62.7] Start: 10-13-2024 BP Controlled (<130/80) BP Controlled (<130/80) [facility] Start: 10-12-2024 Referral to service [facility] Start: 10-12-2024 Patient discharge [facility] Start: 10-11-2024 [facility] Start: 10-10-2024 Following clinical pathway protocol [facility] Start: 10-10-2024 Ambulation without limitation [facility] Start: 10-10-2024 Assessment of risk of venous thromboembolism [facility] Start: 10-10-2024 Care regimes management [facility] Start: 10-10-2024 Insertion of catheter into peripheral vein [facility] Start: 10-10-2024 Notification of physician [facility] Start: 10-10-2024 Providing care according to standard [facility] Start: 10-10-2024 End: 10-10-2024 [facility] Start: 10-10-2024 Hospital admission, emergency, from emergency room, medical nature [facility] Start: 10-10-2024 Verification routine [facility] Start: 10-10-2024 Admission procedure [facility] Start: 10-10-2024 End: 10-10-2024 [facility] Start: 10-10-2024 [facility] Start: 10-10-2024 Bacteria identified in Blood by Culture Blood Culture [facility] Start: 10-10-2024 Bacteria identified in Urine by Culture Urine Culture [facility] Start: 09-14-2024 End: 09-14-2024 ambulatory 09/14/2024 1:00 PM EDT Visit (SP) Office Hematology/Oncology [address] [place] [address] Raphael Perdomo APRN.HSE MANAGER [address] [place] [address] 6 MO OV Hematology/Oncology Comment on above: 6 MO OV Start: 09-13-2024 End: 09-13-2024 Patient encounter procedure [facility] [place] Comment on above: 3mo follow up Start: 09-09-2024 [facility] Start: 09-07-2024 End: 12-07-2024 Urinalysis complete panel - Urine URINALYSIS (WITH MICROSCOPIC) WITH CULTURE IF INDICATED Lab Routine Urinary tract infection without hematuria, site unspecified Expected: 09/07/2024, Expires: 12/07/2024 [facility] Comment on above: Expected: 09/07/2024, Expires: Start: 09-06-2024 End: 09-06-2024 Patient encounter procedure 09/06/2024 2:20 PM EDT Office Visit Internal Medicine [place] [address] [place] [address] Ruddy Cooper MD [address] [place] [address] Hospital Follow Up/TCM eligible through 09/13/2024- [facility] [place] Comment on above: Hospital Follow Up/TCM eligible through 09/13/2024- [facility] Start: 09-04-2024 Annual PCP Team Chronic Disease Visit Annual PCP Team Chronic Disease Visit [facility] Start: 08-30-2024 Patient discharge [facility] Start: 08-30-2024 [facility] Start: 08-27-2024 [facility] Start: 08-26-2024 End: 08-26-2024 ambulatory 08/26/2024 11:30 AM EDT Visit (SP) Office Hematology/Oncology [address] [place] [address] Raphael Perdomo APRN.HSE MANAGER [address] [place] [address] 6 MO OV Hematology/Oncology Comment on above: 6 MO OV Start: 08-26-2024 Speech therapy assessment [facility] Start: 08-26-2024 Application of intermittent pneumatic compression device [facility] Start: 08-26-2024 Assessment of risk of venous thromboembolism [facility] Start: 08-26-2024 Care regimes management [facility] Start: 08-26-2024 Fall prevention [facility] Start: 08-26-2024 Insertion of catheter into peripheral vein [facility] Start: 08-26-2024 Introduction of urinary catheter [facility] Start: 08-26-2024 Measuring intake and output [facility] Start: 08-26-2024 Notification of physician [facility] Start: 08-26-2024 Providing care according to standard [facility] Start: 08-26-2024 Provision of activity privileges [facility] Start: 08-26-2024 Referral to occupational therapist [facility] Start: 08-26-2024 Referral to service [facility] Start: 08-26-2024 End: 08-26-2024 [facility] Start: 08-26-2024 Following clinical pathway protocol [facility] Start: 08-25-2024 Admission procedure [facility] Start: 08-25-2024 End: 08-25-2024 Patient encounter procedure 08/25/2024 1:30 PM EDT Office Visit Geriatrics [address] [place] [address] Zabrina Bartlett MD [address] [place] [address] Cognitive impairment [R41.89] Geriatrics Comment on above: Cognitive impairment [R41.89] Start: 08-16-2024 End: 11-15-2024 IMMUNOFIXATION SCREEN, SERUM IMMUNOFIXATION SCREEN, SERUM Lab Routine DM type 2 with diabetic peripheral neuropathy (HCC) Expected: 08/16/2024, Expires: 11/15/2024 [facility] Comment on above: Expected: 08/16/2024, Expires: Start: 08-16-2024 End: 11-15-2024 Methylmalonate [Moles/volume] in Serum or Plasma METHYLMALONIC ACID Lab Routine DM type 2 with diabetic peripheral neuropathy (HCC) Expected: 08/16/2024, Expires: 11/15/2024 [facility] Comment on above: Expected: 08/16/2024, Expires: Start: 08-16-2024 End: 11-15-2024 Pyridoxine [Mass/volume] in Serum or Plasma VITAMIN B6/PYRIDOXIN Lab Routine DM type 2 with diabetic peripheral neuropathy (HCC) Expected: 08/16/2024, Expires: 11/15/2024 [facility] Work Phone: Comment on above: Expected: 08/16/2024, Expires: Start: 08-16-2024 End: 08-16-2024 Patient encounter procedure 08/16/2024 1:00 PM EDT Office Visit Neurology [address] [place] [address] Khris Salinas MD [address] [place], [place] [id number] Severe neuropathy in bilateral upper and lower extremities Neurology Comment on above: Severe neuropathy in bilateral upper and lower extremities Start: 08-13-2024 End: 08-13-2024 Patient encounter procedure 08/13/2024 12:00 PM EDT Office Visit Neurology [address] [place] [address] Tone Guzman MD [address] [facility] [place] [id number] Severe neuropathy in bilateral upper and lower extremities Neurology Comment on above: Severe neuropathy in bilateral upper and lower extremities Start: 06-25-2024 Hepatitis B screening Urine Albumin:Creatinine Ratio [facility] Start: 06-25-2024 Hepatitis B surface antibody level LDL Cholesterol [facility] Start: 06-23-2024 End: 09-22-2024 CREATININE BLD CREATININE BLD Lab Routine Screening for nephropathy Expected: 06/23/2024, Expires: 09/22/2024 [facility] Comment on above: Expected: 06/23/2024, Expires: Start: 06-22-2024 End: 06-22-2024 Nursing evaluation of patient and report 06/22/2024 11:00 AM EST Nurse Visit Endocrinology [address] [place] [address] Norris Young, RN [address] [id number] Type 2 diabetes mellitus with diabetic neuropathy, [...] of insulin (HCC) Expected: 06/21/2024, Expires: 09/20/2024 [facility] Comment on above: Expected: 06/21/2024, Expires: Start: 06-21-2024 End: 09-20-2024 Microalbumin/Creatinine [Mass Ratio] in Urine ALBUMIN/CREATININE RATIO, URINE Lab Routine Type 2 diabetes mellitus with diabetic neuropathy, without long-term current use of insulin (HCC) Expected: 06/21/2024, Expires: 09/20/2024 [facility] Work Phone: Comment on above: Expected: 06/21/2024, Expires: Start: 06-20-2024 End: 09-19-2024 Hemoglobin A1c in Blood HEMOGLOBIN A1C Lab Routine Type 2 diabetes mellitus with diabetic neuropathy, without long-term current use of insulin (HCC) Expected: 06/20/2024 (Approximate), Expires: 09/19/2024 [facility] Comment on above: Expected: 06/20/2024 (Approximate), Expi res: 09/19/2024 Start: 06-14-2024 End: 06-14-2024 Patient encounter procedure 06/14/2024 11:00 AM EST Office Visit Internal Medicine [place] [address] [place] [address] Bradford John APRN.CLEANING VALIDATION CONSULTANT [address] [place] [address] 3 month follow up [facility] [place] Comment on above: 3 month follow up Start: 06-10-2024 Hemoglobin A1c measurement HbA1C [facility] Start: 05-26-2024 Annual PCP Team Chronic Disease Visit Annual PCP Team Chronic Disease Visit [facility] Start: 04-28-2024 Medicare Advantage Annual Wellness Visit Medicare Advantage Annual Wellness Visit [facility] Start: 04-03-2024 BP Controlled (<130/80) BP Controlled (<130/80) [facility] Start: 03-12-2024 End: 03-12-2024 Patient encounter procedure 03/12/2024 3:00 PM EST Office Visit Internal Medicine [place] [address] [facility] [place], [place] [id number] Ruddy Cooper MD [address] [facility], [place] [id number] 3 mo follow up [facility] [place] Comment on above: 3 mo follow up Start: 02-26-2024 End: 05-27-2024 25-hydroxyvitamin D3 [Mass/volume] in Serum or Plasma VITAMIN D 25 HYDROXY Lab Routine Vitamin D deficiency Expected: 02/26/2024, Expires: 05/27/2024 [facility] Comment on above: Expected: 02/26/2024, Expires: Start: 02-26-2024 End: 05-27-2024 EDGARDO BY IFA SCREEN EDGARDO BY IFA SCREEN Lab Routine Arthritis of hand Expected: 02/26/2024, Expires: 05/27/2024 [facility] Comment on above: Expected: 02/26/2024, Expires: Start: 02-26-2024 End: 05-27-2024 C reactive protein [Mass/volume] in Serum or Plasma C-REACTIVE PROTEIN Lab Routine Arthritis of hand Expected: 02/26/2024, Expires: 05/27/2024 [facility] Comment on above: Expected: 02/26/2024, Expires: Start: 02-26-2024 End: 05-27-2024 CBC W Auto Differential panel - Blood COMPLETE BLOOD COUNT AND DIFFERENTIAL Lab Routine Arthritis of hand Type 2 diabetes mellitus with diabetic neuropathy, without long-term current use of insulin (HCC) Encounter for long-term current use of medication Expected: 02/26/2024, Expires: 05/27/2024 [facility] Comment on above: Expected: 02/26/2024, Expires: Start: 02-26-2024 End: 05-27-2024 Comprehensive metabolic 2000 panel - Serum or Plasma COMPREHENSIVE METABOLIC PANEL Lab Routine Vitamin D deficiency Encounter for long-term current use of medication Expected: 02/26/2024, Expires: 05/27/2024 [facility] Comment on above: Expected: 02/26/2024, Expires: Start: 02-26-2024 End: 05-27-2024 Erythrocyte sedimentation rate SEDIMENTATION RATE, WESTERGREN Lab Routine Arthritis of hand Expected: 02/26/2024, Expires: 05/27/2024 [facility] Comment on above: Expected: 02/26/2024, Expires: Start: 02-26-2024 End: 05-27-2024 Hemoglobin A1c in Blood HEMOGLOBIN A1C Lab Routine Type 2 diabetes mellitus with diabetic neuropathy, without long-term current use of insulin (HCC) Expected: 02/26/2024, Expires: 05/27/2024 [facility] Comment on above: Expected: 02/26/2024, Expires: Start: 02-26-2024 End: 05-27-2024 Rheumatoid factor [Units/volume] in Serum or Plasma RHEUMATOID FACTOR Lab Routine Arthritis of hand Expected: 02/26/2024, Expires: 05/27/2024 [facility] Comment on above: Expected: 02/26/2024, Expires: Start: 02-26-2024 End: 02-26-2024 Patient encounter procedure 02/26/2024 12:20 PM EDT Office Visit Internal Medicine [place] [address] [place], [place] [address] Ruddy Cooper MD [address] [place] [address] 3 mo follow up [facility] [place] Comment on above: 3 mo follow up Start: 02-25-2024 Annual PCP Team Chronic Disease Visit Annual PCP Team Chronic Disease Visit [facility] Start: 02-25-2024 BP Controlled (<130/80) BP Controlled (<130/80) [facility] Start: 02-25-2024 End: 02-25-2024 ambulatory [place] [facility] Comment on above: lab 6 MO OV/LAB&ZOMETA T MARRY* Q6MO ZOMETA/LAB&OV E ARISTIDES/AUTH EXP 08/24/24* no later than 230 w/lab 6 MO OV* Start: 01-27-2024 End: 01-27-2024 ambulatory 01/27/2024 1:30 PM EDT OT/PT/Speech Visit [facility] [address] [place] [address] O'Casper, Charleen, PT Gait difficulty [R26.9] Complaints of leg weakness [R29.898] [facility] Comment on above: Gait difficulty [R26.9] Complaints of le g weakness [R29.898] Start: 01-20-2024 End: 01-20-2024 ambulatory 01/20/2024 1:30 PM EDT OT/PT/Speech Visit [facility] [address] [place] [address] O'Casper, Charleen, PT Gait difficulty [R26.9] Complaints of leg weakness [R29.898] [facility] Comment on above: Gait difficulty [R26.9] Complaints of le g weakness [R29.898] Start: 01-13-2024 End: 01-13-2024 ambulatory 01/13/2024 11:15 AM EDT OT/PT/Speech Visit [facility] [address] [place] [address] O'Casper, Charleen, PT Gait difficulty [R26.9] Complaints of leg weakness [R29.898] [facility] Comment on above: Gait difficulty [R26.9] Complaints of le g weakness [R29.898] Start: 01-06-2024 End: 01-06-2024 ambulatory 01/06/2024 1:30 PM EDT OT/PT/Speech Visit [facility] [address] [place] [address] O'Casper, Charleen, PT Gait difficulty [R26.9] Complaints of leg weakness [R29.898] [facility] Comment on above: Gait difficulty [R26.9] Complaints of le g weakness [R29.898] Start: 01-06-2024 End: 01-06-2024 Patient encounter procedure 01/06/2024 12:50 PM EDT Appointment Mammogram [address] [place] [address] [facility] Mammogram Comment on above: [facility] Start: 01-05-2024 End: 01-05-2024 Patient encounter procedure [facility] Comment on above: yearly follow up Start: 01-02-2024 End: 01-02-2024 Patient encounter procedure 01/02/2024 11:20 AM EDT Office Visit [facility]iology [address] [facility] [place] [address] Hypertension [I10] Cardiology Comment on above: Hypertension [I10] Start: 12-28-2023 Covid-19 Vaccine ( season) Covid-19 Vaccine () [facility] Start: 12-28-2023 Covid-19 Vaccine ( season) Covid-19 Vaccine () [facility] Start: 12-28-2023 Influenza vaccination [facility] Start: 12-15-2023 End: 12-15-2023 ambulatory 12/15/2023 2:45 PM EDT OT/PT/Speech Visit [facility] [address] [place] [address] Charleen Johnson, PT Gait difficulty [R26.9] Complaints of leg weakness [R29.898] [facility] Comment on above: Gait difficulty [R26.9] Complaints of le g weakness [R29.898] Start: 12-10-2023 End: 12-10-2023 Patient encounter procedure 12/10/2023 2:00 PM EDT Office Visit [facility] [place] [address] [place] [address] Ruddy Cooper MD [address] [place] [address] 3 mo follow up [facility] [place] Comment on above: 3 mo follow up Start: 12-09-2023 End: 03-09-2024 Hemoglobin A1c in Blood HEMOGLOBIN A1C Lab Routine Type 2 diabetes mellitus with diabetic neuropathy, without long-term current use of insulin (HCC) Expected: 12/09/2023 (Approximate), Expires: 03/09/2024 [facility] Comment on above: Expected: 12/09/2023 (Approximate), Expi res: 03/09/2024 Start: 11-26-2023 End: 11-26-2023 ambulatory 11/26/2023 12:00 PM EDT OT/PT/Speech Visit [facility] [address] [place] [address] O'CasperCharleen delgado, PT Gait difficulty [R26.9] Complaints of leg weakness [R29.898] [facility] Comment on above: Gait difficulty [R26.9] Complaints of le g weakness [R29.898] Start: 11-24-2023 End: 11-24-2023 ambulatory 11/24/2023 12:30 PM EDT OT/PT/Speech Visit [facility] [address] [place] [address] O'CasperCharleen delgado, PT Gait difficulty [R26.9] Complaints of leg weakness [R29.898] [facility] Comment on above: Gait difficulty [R26.9] Complaints of le g weakness [R29.898] Start: 11-19-2023 End: 11-19-2023 ambulatory 11/19/2023 12:45 PM EDT OT/PT/Speech Visit [facility] [address] [place] [address] O'CasperCharleen, PT Gait difficulty [R26.9] Complaints of leg weakness [R29.898] [facility] Comment on above: Gait difficulty [R26.9] Complaints of le g weakness [R29.898] Start: 11-17-2023 End: 11-17-2023 ambulatory 11/17/2023 12:30 PM EDT OT/PT/Speech Visit [facility] [address] [place] [address] O'Charleen Shirley, PT Gait difficulty [R26.9] Complaints of leg weakness [R29.898] [facility] Comment on above: Gait difficulty [R26.9] Complaints of le g weakness [R29.898] Start: 11-12-2023 End: 11-12-2023 ambulatory 11/12/2023 12:45 PM EDT OT/PT/Speech Visit [facility] [address] [place] [address] O'Charleen Shirley, PT Gait difficulty [R26.9] Complaints of leg weakness [R29.898] [facility] Comment on above: Gait difficulty [R26.9] Complaints of le g weakness [R29.898] Start: 11-10-2023 End: 11-10-2023 ambulatory 11/10/2023 12:30 PM EDT OT/PT/Speech Visit [facility] [address] [place] [address] KasMarissa whittington, LATIN PROFESSOR [address] [place] [address] Gait difficulty [R26.9] Complaints of leg weakness [R29.898] [facility] Comment on above: Gait difficulty [R26.9] Complaints of le g weakness [R29.898] Start: 11-06-2023 End: 11-06-2023 ambulatory 11/06/2023 11:00 AM EDT OT/PT/Speech Visit [facility] [address] [place] [address] O'Charleen Shirley, PT Gait difficulty [R26.9] Complaints of leg weakness [R29.898] [facility] Comment on above: Gait difficulty [R26.9] Complaints of le g weakness [R29.898] Start: 11-03-2023 End: 11-03-2023 ambulatory 11/03/2023 12:30 PM EDT OT/PT/Speech Visit [facility] [address] [place] [address] O'Casper, Charleen, PT Gait difficulty [R26.9] Complaints of leg weakness [R29.898] [facility] Comment on above: Gait difficulty [R26.9] Complaints of le g weakness [R29.898] Start: 10-29-2023 End: 10-29-2023 ambulatory 10/29/2023 1:30 PM EDT OT/PT/Speech Visit [facility] [address] [place] [address] O'Casper, Charleen, PT Gait difficulty [R26.9] Complaints of leg weakness [R29.898] [facility] Comment on above: Gait difficulty [R26.9] Complaints of le g weakness [R29.898] Start: 10-27-2023 End: 10-27-2023 ambulatory 10/27/2023 1:15 PM EDT OT/PT/Speech Visit [facility] [address] [place] [address] O'Casper, Charleen, PT Gait difficulty [R26.9] Complaints of leg weakness [R29.898] [facility] Comment on above: Gait difficulty [R26.9] Complaints of le g weakness [R29.898] Start: 10-26-2023 Influenza vaccination Influenza Vaccine (#1) [facility] Comment on above: Postponed from 12/27/2022 (Declined at t his time) Start: 10-22-2023 End: 10-22-2023 ambulatory 10/22/2023 12:45 PM EDT OT/PT/Speech Visit [facility] [address] [address] O'Casper, Charleen, PT Gait difficulty [R26.9] Complaints of leg weakness [R29.898] [facility] Comment on above: Gait difficulty [R26.9] Complaints of le g weakness [R29.898] Start: 10-20-2023 End: 10-20-2023 ambulatory 10/20/2023 3:30 PM EDT OT/PT/Speech Visit [facility] [address] [place] [address] O'CasperCharleen delgado, PT Gait difficulty [R26.9] Complaints of leg weakness [R29.898] [facility] Comment on above: Gait difficulty [R26.9] Complaints of le g weakness [R29.898] Start: 10-19-2023 ANNUAL PCP TEAM CHRONIC DISEASE VISIT ANNUAL PCP TEAM CHRONIC DISEASE VISIT [facility] Start: 10-19-2023 BP CONTROLLED (<130/80) BP CONTROLLED (<130/80) [facility] Start: 09-29-2023 End: 09-29-2023 ambulatory 09/29/2023 2:00 PM EDT OT/PT/Speech Visit [facility] [address] [place] [address] O'CasperCharleen delgado, PT Gait difficulty [R26.9] [facility] Comment on above: Gait difficulty [R26.9] Start: 09-26-2023 End: 09-26-2023 Patient encounter procedure [facility] Comment on above: History of abdominal surgery [Z98.890] Start: 09-23-2023 Hemoglobin A1c measurement HbA1C [facility] Start: 09-23-2023 End: 09-23-2023 Patient encounter procedure Cat Scan Comment on above: History of abdominal surgery [Z98.890] Start: 09-22-2023 Hemoglobin A1c measurement HbA1C [facility] Start: 09-22-2023 Hemoglobin A1c/Hemoglobin.total in Blood HbA1C [facility] Start: 09-10-2023 End: 09-10-2023 ambulatory [facility] Comment on above: lab 6 MO OV/LAB&ZOMETA T MARRY* Q6MO ZOMETA/LAB&OV E ARISTIDES/AUTH EXP 08/24/24* Start: 06-28-2023 BP CONTROLLED (<130/80) BP CONTROLLED (<130/80) [facility] Start: 06-25-2023 End: 09-24-2023 25-hydroxyvitamin D3 [Mass/volume] in Serum or Plasma VITAMIN D 25 HYDROXY Lab Routine Vitamin D deficiency Expected: 06/25/2023 (Approximate), Expires: 09/24/2023 [facility] Work Phone: Comment on above: Expected: 06/25/2023 (Approximate), Expi res: 09/24/2023 Start: 06-25-2023 End: 09-24-2023 ALBUMIN/CREAT RATIO RND UR ALBUMIN/CREAT RATIO RND UR Lab Routine Type 2 diabetes mellitus with diabetic neuropathy, without long-term current use of insulin (HCC) Expected: 06/25/2023 (Approximate), Expires: 09/24/2023 [facility] Work Phone: Comment on above: Expected: 06/25/2023 (Approximate), Expi res: 09/24/2023 Start: 06-25-2023 End: 09-24-2023 CBC panel - Blood by Automated count CBC Lab Routine Primary hypertension Expected: 06/25/2023 (Approximate), Expires: 09/24/2023 [facility] Work Phone: Comment on above: Expected: 06/25/2023 (Approximate), Expi res: 09/24/2023 Start: 06-25-2023 End: 09-24-2023 Comprehensive metabolic 2000 panel - Serum or Plasma COMP METABOLIC PANEL Lab Routine Primary hypertension Type 2 diabetes mellitus with diabetic neuropathy, without long-term current use of insulin (HCC) Expected: 06/25/2023 (Approximate), Expires: 09/24/2023 [facility] Work Phone: Comment on above: Expected: 06/25/2023 (Approximate), Expi res: 09/24/2023 Start: 06-25-2023 End: 09-24-2023 Hemoglobin A1c in Blood HGB A1C Lab Routine Type 2 diabetes mellitus with diabetic neuropathy, without long-term current use of insulin (HCC) Expected: 06/25/2023 (Approximate), Expires: 09/24/2023 [facility] Work Phone: Comment on above: Expected: 06/25/2023 (Approximate), Expi res: 09/24/2023 Start: 06-25-2023 End: 09-24-2023 Lipid 1996 panel - Serum or Plasma LIPID PANEL BASIC Lab Routine Mixed hyperlipidemia Expected: 06/25/2023 (Approximate), Expires: 09/24/2023 [facility] Work Phone: Comment on above: Expected: 06/25/2023 (Approximate), Expi res: 09/24/2023 Start: 05-24-2023 BP CONTROLLED (<130/80) BP CONTROLLED (<130/80) [facility] Start: 05-21-2023 Hemoglobin A1c/Hemoglobin.total in Blood HBA1C [facility] Start: 04-28-2023 Advance Directive Discussion Advance Directive Discussion [facility] Start: 03-29-2023 Hepatitis B screening URINE ALBUMIN:CREATININE RATIO [facility] Start: 03-28-2023 BP CONTROLLED (<130/80) BP CONTROLLED (<130/80) [facility] Start: 03-28-2023 COVID-19 VACCINE (4 - Booster for Pfizer series) COVID-19 VACCINE (4 - Booster for Pfizer series) [facility] Comment on above: Postponed from 01/10/2022 (Declined at t his time) Start: 03-28-2023 COVID-19 VACCINE (4 - Pfizer series) COVID-19 VACCINE (4 - Pfizer series) [facility] Comment on above: Postponed from 01/10/2022 (Declined at t his time) Start: 03-28-2023 Hepatitis B surface antibody level LDL CHOLESTEROL [facility] Start: 03-28-2023 Pneumococcal Vaccine: 65+ (2 - PCV) Pneumococcal Vaccine: 65+ (2 - PCV) [facility] Comment on above: Postponed from 05/04/2015 (Declined at t his time) Start: 03-28-2023 PNEUMOCOCCAL: 65+ (2 - PCV) PNEUMOCOCCAL: 65+ (2 - PCV) [facility] Comment on above: Postponed from 05/04/2015 (Declined at t his time) Start: 02-26-2023 End: 03-31-2023 Mra head w/o & w/contrast material MRA BRAIN WO/W IVCON Radiology Routine Intracranial aneurysm Expected: 02/26/2023 (Approximate), Expires: 03/31/2023 [facility] Work Phone: Comment on above: Expected: 02/26/2023 (Approximate), Expi res: 03/31/2023 Start: 12-27-2022 Covid-19 Vaccine () Covid-19 Vaccine () [facility] Start: 12-27-2022 Influenza vaccination [facility] Start: 10-26-2022 End: 06-27-2023 25-hydroxyvitamin D3 [Mass/volume] in Serum or Plasma VITAMIN D 25 HYDROXY Lab Routine Vitamin D deficiency Expected: 10/26/2022 (Approximate), Expires: 06/27/2023 [facility] Work Phone: Comment on above: Expected: 10/26/2022 (Approximate), Expi res: 06/27/2023 Start: 10-26-2022 End: 06-27-2023 CBC W Auto Differential panel - Blood CBC + DIFF Lab Routine Type 2 diabetes mellitus with diabetic neuropathy, without long-term current use of insulin (HCC) Insomnia, unspecified type Expected: 10/26/2022 (Approximate), Expires: 06/27/2023 [facility] Work Phone: Comment on above: Expected: 10/26/2022 (Approximate), Expi res: 06/27/2023 Start: 10-26-2022 End: 06-27-2023 Comprehensive metabolic 2000 panel - Serum or Plasma COMP METABOLIC PANEL Lab Routine Type 2 diabetes mellitus with diabetic neuropathy, without long-term current use of insulin (HCC) Insomnia, unspecified type Expected: 10/26/2022 (Approximate), Expires: 06/27/2023 [facility] Work Phone: Comment on above: Expected: 10/26/2022 (Approximate), Expi res: 06/27/2023 Start: 10-26-2022 End: 06-27-2023 Hemoglobin A1c in Blood HGB A1C Lab Routine Type 2 diabetes mellitus with diabetic neuropathy, without long-term current use of insulin (HCC) Expected: 10/26/2022 (Approximate), Expires: 06/27/2023 [facility] Work Phone: Comment on above: Expected: 10/26/2022 (Approximate), Expi res: 06/27/2023 Start: 10-25-2022 Influenza vaccination INFLUENZA (#1) [facility] Comment on above: Postponed from 12/27/2021 (Declined at t his time) Start: 10-17-2022 ANNUAL PCP TEAM CHRONIC DISEASE VISIT ANNUAL PCP TEAM CHRONIC DISEASE VISIT [facility] Start: 10-17-2022 BP CONTROLLED (<130/80) BP CONTROLLED (<130/80) [facility] Start: 10-17-2022 Hepatitis B surface antibody level LDL CHOLESTEROL [facility] Start: 10-08-2022 BP CONTROLLED (<130/80) BP CONTROLLED (<130/80) [facility] Start: 09-26-2022 Hemoglobin A1c/Hemoglobin.total in Blood HBA1C [facility] Start: 06-05-2022 BP CONTROLLED (<130/80) BP CONTROLLED (<130/80) [facility] Start: 04-29-2022 SHINGRIX VACCINE (1 of 2) SHINGRIX VACCINE (1 of 2) [facility] Comment on above: Postponed from 01/16/1996 (Insurance Cov erage) Start: 04-29-2022 Urine microalbumin profile DTAP,TDAP,TD (1 - Tdap) [facility] Comment on above: Postponed from 1965 (Insurance Cov erage) Start: 04-28-2022 ADVANCE DIRECTIVE DISCUSSION ADVANCE DIRECTIVE DISCUSSION [facility] Start: 04-18-2022 Hemoglobin A1c/Hemoglobin.total in Blood HBA1C [facility] Start: 04-10-2022 End: 06-10-2022 25-hydroxyvitamin D3 [Mass/volume] in Serum or Plasma VITAMIN D 25 HYDROXY Lab Routine Vitamin D deficiency Expected: 04/10/2022 (Approximate), Expires: 06/10/2022 [facility] Work Phone: Comment on above: Expected: 04/10/2022 (Approximate), Expi res: 06/10/2022 Start: 04-10-2022 End: 06-10-2022 Hemoglobin A1c in Blood HGB A1C Lab Routine Type 2 diabetes mellitus with diabetic neuropathy, without long-term current use of insulin (HCC) Expected: 04/10/2022 (Approximate), Expires: 06/10/2022 [facility] Work Phone: Comment on above: Expected: 04/10/2022 (Approximate), Expi res: 06/10/2022 Start: 04-10-2022 End: 06-10-2022 Lipid 1996 panel - Serum or Plasma LIPID PANEL BASIC Lab Routine Mixed hyperlipidemia Expected: 04/10/2022 (Approximate), Expires: 06/10/2022 [facility] Work Phone: Comment on above: Expected: 04/10/2022 (Approximate), Expi res: 06/10/2022 Start: 04-10-2022 End: 06-10-2022 LIPID PANEL, NONFASTING LIPID PANEL, NONFASTING Lab Routine Mixed hyperlipidemia Expected: 04/10/2022 (Approximate), Expires: 06/10/2022 [facility] Work Phone: Comment on above: Expected: 04/10/2022 (Approximate), Expi res: 06/10/2022 Start: 03-29-2022 ANNUAL PCP TEAM CHRONIC DISEASE VISIT ANNUAL PCP TEAM CHRONIC DISEASE VISIT [facility] Start: 03-28-2022 End: 05-28-2022 25-hydroxyvitamin D3 [Mass/volume] in Serum or Plasma [facility] Work Phone: Comment on above: Expected: 03/28/2022, Expires: 3 Start: 03-28-2022 End: 05-28-2022 ALBUMIN/CREAT RATIO RND UR ALBUMIN/CREAT RATIO RND UR Lab Routine Type 2 diabetes mellitus with diabetic neuropathy, without long-term current use of insulin (HCC) Expected: 03/28/2022, Expires: 05/28/2022 [facility] Work Phone: Comment on above: Expected: 03/28/2022, Expires: 3 Start: 03-28-2022 End: 05-28-2022 CBC W Auto Differential panel - Blood [facility] Work Phone: Comment on above: Expected: 03/28/2022, Expires: 3 Start: 03-28-2022 End: 05-28-2022 Comprehensive metabolic 2000 panel - Serum or Plasma [facility] Work Phone: Comment on above: Expected: 03/28/2022, Expires: 3 Start: 03-28-2022 End: 05-28-2022 Hemoglobin A1c in Blood [facility] Work Phone: Comment on above: Expected: 03/28/2022, Expires: 3 Start: 03-28-2022 End: 05-28-2022 LIPID PANEL, NONFASTING [facility] Work Phone: Comment on above: Expected: 03/28/2022, Expires: 3 Start: 03-18-2022 COVID-19 VACCINE (4 - Booster for Pfizer series) COVID-19 VACCINE (4 - Booster for Pfizer series) [facility] Start: 02-15-2022 COVID-19 VACCINE (4 - Booster for Pfizer series) COVID-19 VACCINE (4 - Booster for Pfizer series) [facility] Start: 02-07-2022 COVID-19 VACCINE (4 - Booster for Pfizer series) COVID-19 VACCINE (4 - Booster for Pfizer series) [facility] Start: 01-25-2022 Hepatitis B screening URINE ALBUMIN:CREATININE RATIO [facility] Start: 01-17-2022 End: 03-19-2022 Basic metabolic 2000 panel - Serum or Plasma BASIC METABOLIC PNL Lab Routine Cerebral aneurysm Expected: 01/17/2022 (Approximate), Expires: 03/19/2022 [facility] Work Phone: Comment on above: Expected: 01/17/2022 (Approximate), Expi res: 03/19/2022 Start: 01-17-2022 End: 03-19-2022 CBC panel - Blood by Automated count CBC Lab Routine Cerebral aneurysm Expected: 01/17/2022 (Approximate), Expires: 03/19/2022 [facility] Work Phone: Comment on above: Expected: 01/17/2022 (Approximate), Expi res: 03/19/2022 Start: 01-10-2022 COVID-19 VACCINE (4 - Booster for Pfizer series) COVID-19 VACCINE (4 - Booster for Pfizer series) [facility] Start: 12-27-2021 Influenza vaccination INFLUENZA (#1) [facility] Start: 08-30-2021 Bacteria identified in Urine by Culture Urine Culture [facility] Work Phone: Start: 07-08-2021 Hemoglobin A1c/Hemoglobin.total in Blood HBA1C [facility] Start: 04-28-2021 ADVANCE DIRECTIVE DISCUSSION ADVANCE DIRECTIVE DISCUSSION [facility] Start: 04-06-2021 COVID-19 VACCINE (3 - Pfizer risk series) COVID-19 VACCINE (3 - Pfizer risk series) [facility] Start: 2021 RSV Vaccine (1 - 1-dose 75+ series) RSV Vaccine (1 - 1-dose 75+ series) [facility] Start: 08-18-2020 Colonoscopy COLONOSCOPY [facility] Start: 08-18-2020 COLORECTAL CANCER SCREENING COLORECTAL CANCER SCREENING [facility] Start: 08-13-2020 Colonoscopy COLONOSCOPY [facility] Start: 08-13-2020 COLORECTAL CANCER SCREENING COLORECTAL CANCER SCREENING [facility] Start: 11-12-2019 ANNUAL PCP TEAM CHRONIC DISEASE VISIT ANNUAL PCP TEAM CHRONIC DISEASE VISIT [facility] Start: 11-06-2019 Hepatitis B surface antibody level LDL CHOLESTEROL [facility] Start: 05-07-2018 FECAL OCCULT BLOOD FECAL OCCULT BLOOD [facility] Start: 05-04-2015 Pneumococcal Vaccine: 50+ (2 of 2 - PCV) Pneumococcal Vaccine: 50+ (2 of 2 - PCV) [facility] Start: 05-04-2015 Pneumococcal Vaccine: 65+ (2 - PCV) Pneumococcal Vaccine: 65+ (2 - PCV) [facility] Start: 05-04-2015 Pneumococcal Vaccine: 65+ (2 of 2 - PCV) Pneumococcal Vaccine: 65+ (2 of 2 - PCV) [facility] Start: 05-04-2015 PNEUMOCOCCAL: 65+ (2 - PCV) PNEUMOCOCCAL: 65+ (2 - PCV) [facility] Start: 2006 Hepatitis B Vaccine (1 of 3 - Risk 3-dose series) Hepatitis B Vaccine (1 of 3 - Risk 3-dose series) [facility] Start: 2006 RSV Vaccine (1 - 1-dose 60+ series) RSV Vaccine (1 - 1-dose 60+ series) [facility] Start: 01-16-1996 SHINGRIX VACCINE (1 of 2) SHINGRIX VACCINE (1 of 2) [facility] Start: 1991 COLOGUARD (FIT-DNA) COLOGUARD (FIT-DNA) [facility] Start: [address] COLONOGRAPHY [facility] Start: 1991 SIGMOIDOSCOPY SIGMOIDOSCOPY [facility] Start: 1965 SHINGRIX VACCINE (1 of 2) SHINGRIX VACCINE (1 of 2) [facility] Start: 1965 Urine microalbumin profile [facility] Start: 01-16-1964 BP CONTROLLED (<130/80) BP CONTROLLED (<130/80) [facility] Start: 01-16-1956 3 comp foot exam completed DIABETIC FOOT EXAM [facility] Start: 01-16-1956 Diabetic foot examination Diabetic Foot Exam [facility] Start: 01-16-1956 Glaucoma screening Dilated Retinal Exam [facility] Start: 01-16-1956 Hepatitis C antibody, confirmatory test DILATED RETINAL EXAM [facility] Amphetamines [Presen ce] in Urine by Screen method >1000 ng/mL [facility] Bacteria identified in Urine by Culture BACTERIAL CULTURE, URINE Microbiology Routine Acute UTI Ordered: 08/09/2024 [facility] Work Phone: Comment on above: Ordered: 08/09/2024 Bacteria identified in Urine by Culture BACTERIAL CULTURE, URINE Microbiology Routine Urinary tract infection without hematuria, site unspecified 12/13/2024 12:49 PM EDT [facility] Benzodiazepine measurement, urine [facility] Cocaine measurement, urine [facility] End: 10-07-2024 CT Abdomen and Pelvis WO contrast CT ABD/PEL WO IVCON Radiology Routine History of abdominal surgery Abdominal pain, chronic, generalized 1 Occurrences starting 09/08/2023 until 10/07/2024 [facility] Comment on above: 1 Occurrences starting 09/08/2023 until 10/07/2024 CT Abdomen and Pelvi s WO contrast CT ABD/PEL WO IVCON Radiology Routine History of abdominal surgery Abdominal pain, chronic, generalized 09/26/2023 11:51 AM EDT [facility] Work Phone: End: 07-23-2025 CTA Head Arteries W contrast IV CTA HEAD W IVCON Radiology Routine Nonruptured cerebral aneurysm 1 Occurrences starting 06/23/2024 until 07/23/2025 [facility] Work Phone: Comment on above: 1 Occurrences starting 06/23/2024 until 07/23/2025 End: 01-30-2025 DBT Breast - bilateral screening WILLIE SCREENING W AVNI Radiology Routine Screening mammogram for breast cancer 1 Occurrences starting 01/01/2024 until 01/30/2025 [facility] Work Phone: Comment on above: 1 Occurrences starting 01/01/2024 until 01/30/2025 End: 07-21-2025 DBT Breast - bilateral screening WILLIE SCREENING W AVNI Radiology Routine Encounter for screening mammogram for breast cancer 1 Occurrences starting 06/21/2024 until 07/21/2025 [facility] Comment on above: 1 Occurrences starting 06/21/2024 until 07/21/2025 End: 12-18-2024 Echocardiography ECHO Cardiology Routine Hypertension Syncope, unspecified syncope type 1 Occurrences starting 12/19/2023 until 12/18/2024 [facility] Work Phone: Comment on above: 1 Occurrences starting 12/19/2023 until 12/18/2024 fentaNYL [Presence] in Urine by Screen method [facility] Hemoglobin A1c/Hemoglobin.total in Blood [facility] IMMUNOFIXATION SCREE N, SERUM IMMUNOFIXATION SCREEN, SERUM Lab Routine DM type 2 with diabetic peripheral neuropathy (HCC) 08/17/2024 11:41 AM EDT [facility] IR CEREBRAL ARCH & T HREE VESSEL IR CEREBRAL ARCH & THREE VESSEL Radiology Routine Cerebral aneurysm Ordered: 12/03/2021 [facility] Work Phone: Comment on above: Ordered: 12/03/2021 End: 01-23-2024 WILLIE DIAGNOSTIC BILATERAL WILLIE DIAGNOSTIC BILATERAL Radiology Routine Bilateral fibrocystic breast changes Personal history of breast cancer S/P bilateral breast lumpectomy Mass of lower outer quadrant of right breast 1 Occurrences starting 12/24/2022 until 01/23/2024 [facility] Work Phone: Comment on above: 1 Occurrences starting 12/24/2022 until 01/23/2024 End: 01-22-2024 WILLIE SCREENING WILLIE SCREENING Radiology Routine Screening breast examination 1 Occurrences starting 12/23/2022 until 01/22/2024 [facility] Work Phone: Comment on above: 1 Occurrences starting 12/23/2022 until 01/22/2024 Methadone measuremen t, urine [facility] Methylmalonate [Moles/volume] in Serum or Plasma METHYLMALONIC ACID Lab Routine DM type 2 with diabetic peripheral neuropathy (HCC) 08/17/2024 11:41 AM EDT [facility] Patient Education [facility] Work Phone: Patient referral [facility] Work Phone: PFIZER-BIONTECH COVI D-19 VACCINE ( SEASON) AGE 12+ YR PFIZER-BIONTECH COVID-19 VACCINE ( SEASON) AGE 12+ YR Immunization/Injection Routine Encounter for immunization 1 Occurrences starting 09/08/2023 [facility] Comment on above: 1 Occurrences starting 09/08/2023 Phencyclidine [Prese nce] in Urine [facility] Pneumococcal vaccination PNEUMOC OCCAL VACCINE, 20 VALENT (PREVNAR 20) Immunization/Injection Routine Encounter for immunization 1 Occurrences starting 09/08/2023 [facility] Work Phone: Comment on above: 1 Occurrences starting 09/08/2023 Pyridoxine [Mass/vol ume] in Serum or Plasma VITAMIN B6/PYRIDOXIN Lab Routine DM type 2 with diabetic peripheral neuropathy (HCC) 08/17/2024 11:41 AM EDT [facility] Tdap vaccine 7 yrs/> im TDAP VAC CINE, AGE 7+ YR (ADACEL, BOOSTRIX) Immunization/Injection Routine Encounter for immunization 1 Occurrences starting 10/18/2022 [facility] Work Phone: Comment on above: 1 Occurrences starting 10/18/2022 Troponin T.cardiac [Mass/volume] in Serum or Plasma by High sensitivity method [facility] UA DIP B/O UA DIP B/O Lab R outine Urinary tract infection without hematuria, site unspecified Ordered: 12/13/2024 [facility] Work Phone: Comment on above: Ordered: 12/13/2024 UA DIP, URINE (POC) UA DIP, URIN E (POC) Lab Routine Dementia with other behavioral disturbance, unspecified dementia severity, unspecified dementia type (HCC) Ordered: 09/07/2024 [facility] Work Phone: Comment on above: Ordered: 09/07/2024 Urine cannabinoid measurement [facility] Urine culture [facility] Urine opiate measurement [facility] End: 01-23-2024 US BREAST LTD RIGHT US BREAST LTD RIGHT Radiology Routine Bilateral fibrocystic breast changes Personal history of breast cancer S/P bilateral breast lumpectomy Mass of lower outer quadrant of right breast 1 Occurrences starting 12/24/2022 until 01/23/2024 [facility] Work Phone: Comment on above: 1 Occurrences starting 12/24/2022 until 01/23/2024 End: 03-27-2025 XR Hand - bilateral PA and Lateral and Oblique XR HAND GENERAL 3V PA/LAT/OBL BILATERAL Radiology Routine Arthritis of hand 1 Occurrences starting 02/26/2024 until 03/27/2025 [facility] Work Phone: Comment on above: 1 Occurrences starting 02/26/2024 until 03/27/2025 XR Hand - bilateral PA and Lateral and Oblique XR HAND GENERAL 3V PA/LAT/OBL BILATERAL Radiology Routine Arthritis of hand 02/26/2024 1:51 PM EDT [facility] Immunizations Immunization Date Immunization Notes Care Provider John crowell 11-15-2021 COVID-19 original vaccine, age 12+ yr, monovalent (SYMIC [employer]ICAL - BALDERAS TOP) Ruddy Cooper MD Work Phone: [facility] 03-09-2021 COVID-19 vaccine, ag e 12+ yr ([employer]-BIONTSynerscope - PURPLE TOP) Candelario Douglas MD Work Phone: [facility] Work Phone: 02-13-2021 Covid (Pfizer) [facility] 01-30-2021 influenza, high-dose , quadrivalent vaccine (FLUZONE HIGH DOSE QUADRIVALENT) Candelario Douglas MD Work Phone: [facility] Work Phone: 01-30-2021 influenza virus vacc ine, unspecified formulation Ruddy Cooper MD Work Phone: [facility] 01-13-2019 influenza, high dose seasonal, preservative-free Candelario Douglas MD Work Phone: [facility] Work Phone: 02-12-2018 Seasonal trivalent influenza vaccine, adjuvanted, preservative free Candelario Douglas MD Work Phone: [facility] Work Phone: 05-04-2014 pneumococcal polysaccharide vaccine, 23 valent Ruddy Cooper MD Work Phone: [facility] Work Phone: 02-04-2014 influenza, seasonal, injectable, preservative free Candelario Douglas MD Work Phone: [facility] Work Phone: Payers Date Payer Category Payer Self-pay [id number] 2019 Medicare HU[employer]NA MEDICARE HU[employer]NA MEDICARE PPO [id number] 2019-Present [phone] [place] [address] PPO [id number] 2019 Medicare HUMANA MEDICARE HU[employer]NA MEDICARE PPO [id number] 2019-Present [phone] [address] [place] [address] PPO [id number] 2019 Medicare (Managed Care) MORIAH PEREYRA [id number] 2019 Medicare [id number] Unknown [id number] [id number]. 2.462 Unknown [id number] 2.16840.1.925449.3.579. 2.462 Unknown [id number] 2.16840.1.306015.3.579. 2.462 Unknown [id number] 2.16840.1.162190.3.579. 2.462 Unknown [id number] 2.16840.1.737895.3.579. 2.462 Unknown [id number] 2.16.840.1.106043.3.579. 2.462 Unknown [id number] 2.16.840.1.738821.3.579. 2.462 Unknown [id number] 2.16.840.1.367787.3.579. 2.462 Unknown [id number] 2.16840.1.010486.3.579. 2.462 Unknown [id number] 2.16.840.1.626988.3.579. 2.462 Unknown [id number] 2.16.840.1.108723.3.579. 2.462 Unknown [id number] 2.16.840.1.730104.3.579. 2.462 Unknown [id number] 2.16.840.1.181446.3.579. 2.462 Unknown [id number] 2.16840.1.265127.3.579. 2.462 Unknown [id number] 2.16840.1.137003.3.579. 2.462 Unknown [id number] 2.840.1.718569.3.579. 2.462 Unknown [id number] 2.840.1.554836.3.579. 2.462 Unknown [id number] 2.840.1.404654.3.579. 2.462 Unknown [id number] 2.840.1.996281.3.579. 2.462 Unknown [id number] 2.840.1.527016.3.579. 2.462 Unknown [id number] 2.16840.1.009616.3.579. 2.462 Unknown [id number] 2.16840.1.869590.3.579. 2.462 Unknown [id number] 2.840.1.789038.3.579. 2.462 Unknown [id number] 2.840.1.138825.3.579. 2.462 Unknown [id number] 2.840.1.944272.3.579. 2.462 Unknown [id number] 2.840.1.114276.3.579. 2.462 Unknown [id number] 2.840.1.238067.3.579. 2.462 Social History Date Type Detail Facility Start: 11-04-2013 End: 03-28-2022 Tobacco smoking status NHIS Never smoked tobacco [facility] Start: 06-11-2021 End: 09-14-2024 Alcohol intake Current non-drinker of alcohol (finding) [facility] Start: 1945 Sex Assigned At Not on file [facility] Start: 04-06-2020 End: 03-28-2022 Exposure to SARS-CoV-2 (event) Not sure [facility] Start: 08-29-2021 Tobacco smoking stat us NHIS Unknown if ever smoked [facility] Work Phone: Start: 05-27-2018 None [facility] Start: 05-27-2018 Alone [facility] Start: 05-14-2019 Non-smoker [facility] Start: 1945 Sex Assigned At Female W [facility] Start: 11-04-2013 End: 03-28-2022 Tobacco use and exposure Smokeless tobacco non-user [facility] Start: 10-03-2022 End: 10-18-2022 History of Social function [facility] Start: 10-03-2022 End: 10-18-2022 Tobacco use panel [facility] Start: 03-29-2012 Adult Depression Screening Assessment 0 [facility] Has the [employer], or [employer] threatened to shut off services in your home in past 12Mo No [facility] Medical Equipment Procedure Code Equipment Code [...] INTERNALBRACE 2.0 FDA Start: 05-14-2019 Osteotomy, calcaneus FDA Start: 05-14-2019 Osteotomy, calcaneus FDA Start: 05-14-2019 Osteotomy, calcaneus FDA Start: 05-14-2019 Osteotomy, calcaneus FDA Start: 05-14-2019 Osteotomy, calcaneus FDA Start: 05-14-2019 Osteotomy, calcaneus FDA Start: 05-14-2019 Osteotomy, calcaneus FDA Start: 05-14-2019 Osteotomy, calcaneus FDA Start: 05-14-2019 Osteotomy, calcaneus FDA Start: 05-14-2019 Osteotomy, calcaneus FDA Start: 05-14-2019 Osteotomy, calcaneus FDA Start: 05-14-2019 Osteotomy, calcaneus FDA Start: 05-14-2019 ORIF, ankle 3MM LOW [...] Locking Sc FDA Start: 05-29-2018 ORIF, ankle FDA Start: 05-29-2018 ORIF, ankle FDA Start: 05-29-2018 ORIF, ankle FDA Start: 05-29-2018 ORIF, ankle FDA Start: 05-29-2018 ORIF, ankle FDA Start: 05-29-2018 ORIF, ankle FDA Start: 05-29-2018 ORIF, ankle FDA Start: 05-29-2018 ORIF, ankle FDA Start: 05-29-2018 ORIF, ankle FDA Start: 05-29-2018 ORIF, ankle FDA Start: 05-29-2018 ORIF, ankle FDA Start: 05-29-2018 ORIF, ankle FDA Start: 05-29-2018 ORIF, ankle FDA Start: 05-29-2018 ORIF, ankle FDA Start: 05-29-2018 ORIF, ankle FDA Start: 05-29-2018 ORIF, ankle FDA Start: 05-29-2018 ORIF, ankle FDA Start: 05-29-2018 ORIF, ankle FDA Start: 05-29-2018 ORIF, ankle FDA Start: 05-29-2018 ORIF, ankle FDA Start: 05-29-2018 ORIF, ankle FDA Start: 05-29-2018 ORIF, ankle FDA Start: 05-29-2018 ORIF, ankle FDA Start: 05-29-2018 ORIF, ankle FDA Start: 05-29-2018 ORIF, ankle FDA Start: 05-29-2018 ORIF, ankle FDA Start: 05-29-2018 ORIF, ankle FDA Start: 05-29-2018 ORIF, ankle FDA Start: 05-29-2018 ORIF, ankle FDA Start: 05-29-2018 ORIF, ankle FDA Start: 05-29-2018 ORIF, ankle FDA Start: 05-29-2018 ORIF, ankle FDA Start: 05-29-2018 Lithotripsy, ESWL STENT,URETERAL PIGTAIL 6FRx26 FDA Start: 08-31-2021 Lithotripsy, ESWL STENT,URETERAL PIGTAIL 6FRx26 FDA Start: 08-31-2021 Lithotripsy, ESWL STENT,URETERAL PIGTAIL 6FRx26 FDA Start: 08-31-2021 Lithotripsy, ESWL STENT,URETERAL PIGTAIL 6FRx26 FDA Start: 08-31-2021 Lithotripsy, ESWL STENT,URETERAL PIGTAIL 6FRx26 FDA Start: 08-31-2021 Lithotripsy, ESWL STENT,URETERAL PIGTAIL 6FRx26 FDA Start: 08-31-2021 Lithotripsy, ESWL FDA Start: 08-31-2021 Lithotripsy, ESWL FDA Start: 08-31-2021 Web Sl 9mm X 4mm [id number] Start: 01-22-2021 Insert Triathlon 3 11mm Tibial Bearing Cruciate Retain Sterile Knee [id number] Start: 08-07-2020 Component Tritan ium 29mm Metal 9mm Patellar Asymmetric Knee - [id number] Start: 08-07-2020 Component Triath cedric 2 Pa Femoral Cruciate Retain Bead Knee Right - [id number] Start: 08-07-2020 Baseplate Triath fatimah 3 Tritanium 44mm 67mm Tibial Sterile Latex Free - [id number] Start: 08-07-2020 BRAIN ANEURYSM C OILS VARIOUS [...] PHYNOX ANEURYSM CLIP X2 FDA Start: 08-01-2005 FDA Start: 06-20-2004 FDA Start: 06-20-2004 FDA Start: 06-20-2004 FDA Start: 06-20-2004 FDA Start: 06-20-2004 FDA Start: 08-01-2005 FDA Start: 08-01-2005 FDA Start: 06-20-2004 FDA Start: 06-20-2004 FDA Start: 06-20-2004 FDA Start: 06-20-2004 FDA Start: 06-20-2004 FDA Start: 08-01-2005 FDA Start: 08-01-2005 Goals Date Patient Goal Desired Activity /State Functional Status Date Assessment Result Facility 10-25-2024 Functional status Chair [facility] Work Phone: 10-12-2024 Functional status Ambulates [facility] Work Phone: 08-30-2024 Functional status Chair [facility] Work Phone: 08-31-2021 Functional status Ambulates;Bath room Privilege [facility] Work Phone: 02-02-2021 Are you deaf, or do you have serious difficulty hearing No 02/02/2021 11:09 AM Corinne La RN No [facility] 02-02-2021 Are you blind, or do you have serious difficulty seeing, even when wearing glasses No 02/02/2021 11:09 AM Corinne La RN No [facility] 02-02-2021 Do you have serious difficulty walking or climbing stairs Yes 02/02/2021 11:09 AM Corinne La, LAURITA Yes [facility] 02-02-2021 Do you have difficul ty dressing or bathing Yes 02/02/2021 11:09 AM Corinne La RN Yes [facility] 02-02-2021 Because of a physica l, mental, or emotional condition, do you have difficulty doing errands alone such as visiting a physician's office or shopping Yes 02/02/2021 11:09 AM Corinne La RN Yes [facility] Mental Status Date Assessment Result Facility 10-25-2024 Cognitive function Voice/Name [facility] Work Phone: 10-25-2024 Cognitive function Impulsive [facility] Work Phone: 10-12-2024 Cognitive function Voice/Name [facility] Work Phone: 10-10-2024 Cognitive function Voice/Name [facility] Work Phone: 09-08-2024 Cognitive function Voice/Name [facility] Work Phone: 08-30-2024 Cognitive function Voice/Name [facility] Work Phone: 08-31-2021 Cognitive function Voice/Name [facility] Work Phone: 02-02-2021 Because of a physica l, mental, or emotional condition, do you have serious difficulty concentrating, remembering, or making decisions Yes 02/02/2021 11:09 AM Corinne La RN Yes [facility] Clinical Notes 05-06-2020 to 12-16-2024 Telephone Encounter - Pritesh Angel MD - 12/16/2024 11:03 AM EDTTelephone Encounter - Pritesh Angel MD - 12/16/2024 11:03 AM EDTPatient Instructions Note Date & Type Note Facility 12-16-2024 Telephone encount er Note The following approved medication requests have been transmitted electronically. Requested Prescriptions Signed Prescriptions Disp Refills nitrofurantoin monohydrate and macrocrystal (MACROBID) 100 mg capsule 10 capsule 0 Sig: Take 1 capsule by mouth two times a day for 5 days. Authorizing Provider: PRITESH ANGEL MD [facility] 12-16-2024 Miscellaneous Notes Formattin g of this note is different from the original. The following approved medication requests have been transmitted electronically. Requested Prescriptions Signed Prescriptions Disp Refills nitrofurantoin monohydrate and macrocrystal (MACROBID) 100 mg capsule 10 capsule 0 Sig: Take 1 capsule by mouth two times a day for 5 days. Authorizing Provider: PRITESH ANGEL MD Sade Michelle (patients POA) called back asking to please send UTI Rx to [facility] in [place] because they deliver medication to her home (Not [place]) Please advise documented in this encounter [facility] 12-16-2024 Telephone encount er Note Sade Michelle (patients POA) called back asking to please send UTI Rx to [facility] in [place] because they deliver medication to her home (Not [place]) Please advise [facility] 12-15-2024 Telephone encount er Note Called and left a detailed voicemail notifying Corinne OLIVERA with [facility] of providers message. Clinic phone number was left in case she had any questions. Apurva Vasquez RN [facility] 12-15-2024 Miscellaneous Notes Formattin g of this note might be different from the original. Called and left a detailed voicemail notifying Corinne OLIVERA with [facility] of providers message. Clinic phone number was left in case she had any questions. Apurva Vasquez RN PCP agrees and will follow Spring Rojas APRN.DESIRAE Corinne OLIVERA with [facility] called in to see if provider would follow for SN/PT/OT. Please call and advise. She report VM is a secure line, so you can leave a message. Apurva Vasquez RN documented in this encounter [facility] 12-15-2024 Telephone encount er Note PCP agrees and will follow Spring Rojas APRN.HSE MANAGER [facility] Work Phone: 12-14-2024 Telephone encount er Note Corinne OLIVERA with [facility] called in to see if provider would follow for SN/PT/OT. Please call and advise. She report VM is a secure line, so you can leave a message. Apurva Vasquez RN [facility] 12-13-2024 Instructions Pritesh Angel MD - 12/13/2024 12:[address] BARTLETT FOR GERIATRIC EVALUATION. DO NOT DRIVE. DO NOT BUY A CAR UNTIL EVALUATION BY DR. BARTLETT. FOLLOW UP WITH YOUR FAMILY DOCTOR. documented in this encounter [facility] 12-13-2024 History of Presen t illness Narrative Subjective Judi Pittman is a 79 year old female. Patient presents with: UTI Judi indicated she had lower abdomina pain for 2 days, similar to when she had a urinary tract infection. She needed this tested so she can have a letter indicating she is healthy enough to buy a car. She was in the ER 12/03/24 for acute mental status change. She was in [facility] at the time. She did not like living there and left a few days ago. She was living by herself. Someone helped call a cab for her to come here. She has been diagnosed with dementia. Geriatric consult for November 24 was cancelled. She mentioned falling on the way to see a friend in [facility], which is a trailer park across [place]. ACTIVE PROBLEM LIST Reactive Depression Generalized Anxiety [...] Debility Complaints of Leg Weakness Gait Difficulty Dementia (Hcc) Current Outpatient Medications Medication Sig losartan (COZAAR) 25 mg tablet Take 1 tablet by mouth once daily. nortriptyline (PAMELOR) 50 mg capsule Take 2 capsules by mouth daily at bedtime. metFORMIN (GLUCOPHAGE) 500 mg tablet Take 1 [...] medications for this visit. Review of Systems Constitutional: Negative for chills and fever. Respiratory: Negative for shortness of breath. Gastrointestinal: Positive for nausea. Negative for constipation, diarrhea and vomiting. Genitourinary: Positive for dysuria and pelvic pain. Negative for difficulty urinating, vaginal bleeding and vaginal discharge. Musculoskeletal: Positive for gait problem. Objective BP 120/64 (BP Site: Right Arm, BP Position: Sitting, BP Cuff Size: Large Adult) Pulse 92 Temp (!) 35.7 C (96.3 F) (Temporal) Resp 12 Wt 62.5 kg (137 lb 12.6 oz) BMI 24.41 kg/m Physical Exam Constitutional: General: She is not in acute distress. Appearance: She is not ill-appearing. Cardiovascular: Rate and Rhythm: Normal rate and regular rhythm. Pulmonary: Breath sounds: Normal breath sounds. Abdominal: General: There is no distension. Palpations: Abdomen is soft. Tenderness: There is abdominal tenderness in the suprapubic area. There is no right CVA tenderness, left CVA tenderness, guarding or rebound. Musculoskeletal: Right lower leg: No edema. Left lower leg: No edema. Neurological: General: No focal deficit present. Mental Status: She is alert. She is disoriented. Comments: Moving all extremities. On wheelchair. Using a cane. Oriented to person, place, and year only. Psychiatric: Attention and Perception: Attention normal. Mood and Affect: Mood normal. Speech: Speech is tangential. Cognition and Memory: Cognition is impaired. She exhibits impaired recent memory. ASSESSMENT/PLAN: 1. Urinary tract infection without hematuria, site unspecified - ICD9: 599.0, ICD10: N39.0 (primary diagnosis) acute - Send urine for culture - UA DIP B/O - BACTERIAL CULTURE, URINE 2. Dementia with other behavioral disturbance, unspecified dementia severity, unspecified dementia type (HCC) - ICD9: 294.21, ICD10: F03.918 - Reschedule with Geriatrics. - Do not drive. Do not buy a car until evaluated further. 3. Frequent falls - ICD9: V15.88, ICD10: R29.6 - Fall precautions. She indicated having a walker at home. She felt safe at home and had a medical alert button on. Pritesh Angel MD documented in this encounter [facility] 12-01-2024 Discharge summary Note Date/Time December 01, 2024 3:48pm [facility] Medical Records Department [address] [place] [address] Emergency Department Summary 12/01/24 MR#: [id number] Acct: [id number] Name: JUDI PITTMAN Rep #:[id number] : 1945 79 From: Dillon Loza DO PCP: Dr. Ruddy Cooper MD Status:RE G ER Location: ED HPI HPI - Psych History of Present Illness Chief Complaint: Mental Health Detail of Chief Complaint: Sent in for psych evaluation and mental health clearance Informant: patient, EMS and SNF Narrative Narrative: Patient presents to the emergency department to be evaluated for mental health clearance. Patient with early onset dementia and currently at [facility]. She apparently keeps leaving the property. Apparently she has a friendthat lives across the street in a trailer park. Patient denies falls or recent injury. She denies recent illness. She otherwise denies complaints. She denies auditory visual hallucinations. [facility] Medical History (Updated 12/01/24 @ 14:31 by David Deleon) Gastro-esophageal reflux disease without esophagitis Dysphagia, oropharyngeal phase Primary osteoarthritis, right hand Primary osteoarthritis, left hand Need for assistance with personal care Difficulty in walking, not elsewhere classified Muscle wasting and atrophy, not elsewhere classified, left lower leg Muscle wasting and atrophy, not elsewhere classified, right lower leg Unspecified dementia, unspecified severity, without behavioral disturbance, psychotic disturbance, mood disturbance, and anxiety Fall Generalized weakness Hoarseness History of stress test Anxiety Depression Migraines Orthostatic hypotension Normochromic normocytic anemia Diabetes mellitus type 2 [...] tablet 2.5 mg PO DAILY 08/25/24 History nortriptyline 50 mg capsule 150 mg PO QHS 08/25/24 History meclizine 25 mg chewable tablet 25 mg PO TID PRN dizzi ness #10 tabs 09/09/24 Unknown Rx (Antivert) losartan 25 mg tablet 25 mg PO DAILY 10/10/2409/26 History acetaminophen 325 mg tablet 650 mg (2 x 325 mg) PO Q6H PRN PRN 10/25/24 Unknown Rx Pain 1-10 Or Fever >100.7 #0 tabs metformin 500 mg tablet 500 mg PO DAILY diabetes joy litus 12/01/24 Unknown History ondansetron 4 mg disintegrating 4 mg PO Q6H 12/01/24 U nknown History tablet Allergy/AdvReac Type Severity Reaction Status Date / Time codeine AdvReac Nausea Verified 12/01/24 13:23 fluoxetine HCl (From Prozac) AdvReac shivers Verified 12/01/24 13:23 morphine AdvReac Nausea Verified 12/01/24 13:23 Family History Mother Breast cancer Hypertension Alzheimers disease Aunt Breast cancer Father CAD (coronary artery disease) Sister Alzheimers disease Other Bleeding disorder Surgical History (Updated 12/01/24 @ 14:31 by David Deleon) Other specified postprocedural states History of appendectomy S/P coil embolization of cerebral aneurysm History of total knee arthroplasty Hx of craniotomy Cataract extraction status H/O laser iridotomy History of hysterectomy S/P breast lumpectomy S/P coil embolization of cerebral aneurysm Social History household members: none Smoking Status: Never smoker alcohol intake: never substance use type: does not use ROS ROS ED Review of Systems ROS Unobtainable: other Constitutional Constitutional ED: Reports lethargy; Denies chills, fever(s), sweats or weight loss Eyes Eyes: Denies blurry vision, change in vision or diplopia ENT ENT ED: Denies rhinorrhea or sore throat Cardiovascular Cardiovascular: Denies chest pain, orthopnea or racing heartbeat Respiratory/Chest Respiratory/Chest: Denies cough, dyspnea, dyspnea on exertion, orthopnea or sputum Gastrointestinal Gastrointestinal: Denies abdominal pain, diarrhea, nausea or vomiting Genitourinary Genitourinary ED: Denies dysuria, hematuria or urinary frequency Musculoskeletal Musculoskeletal: Denies arthralgias, back pain, myalgias or neck pain Integumentary Denies abscess, Abrasions or rash Neurologic Neurologic: Denies headache(s) or weakness Psychiatric Psychiatric: Denies anxiety, depression or suicidal thoughts Endocrine Endocrinology: Denies polydipsia, polyphagia or polyuria Hematologic/Lymphatic Hematologic/Lymphatic: Denies easy bleeding, easy bruising or lymphadenopathy Allergic/Immunologic Allergic/Immunologic ED: Denies mouth swelling, tongue swelling or urticaria EXAM Physical Exam Const Vital Signs: 12/01/24 13:21 12/01/24 14:20 12/01/24 15:00 Temperature 98.1 F Temperature Source Oral Pulse Rate 88 70 77 Respiratory Rate 16 14 14 Blood Pressure 110/86 H 118/70 112/65 Blood Pressure Mean 94 86 80 Pulse Ox 98 99 99 Oxygen Delivery Method Room Air Room Air Room Air 12/01/24 15:33 Temperature 97.9 F Temperature Source Pulse Rate 60 Respiratory Rate 14 Blood Pressure 107/80 Blood Pressure Mean 89 Pulse Ox 100 Oxygen Delivery Method Positive well nourished and well developed General Appearance ED: well developed and NAD HEENT Reports TM's clear and moist mucous membranes normocephalic and atraumatic; Negative for trauma or tenderness Tympanic Membrane ED: Yes TM's clear Eyes PERRL and EOMs intact bilaterally General Eye ED: Negative for pale conjunctiva or scleral icterus Neck no lymphadenopathy, supple and no JVD General: Negative for tenderness Chest Wall inspection of chest normal and palpation of chest normal Chest: Negative for tenderness Resp normal respiratory effort and clear to auscultation bilaterally Effort and Inspection: Negative for respiratory distress or pain with movement Auscultation: Negative for rhonchi, wheezes or diminished lung sounds Cardio regular rate, regular rhythm, S1 normal heart sound, S2 normal heart sound and no murmurs Peripheral Pulses: pulses 2+ throughout GI normal to inspection, nondistended, normoactive bowel sounds, soft to palpation,non-tender, non-distended and no masses Back/Spine no CVA tenderness and no thoracic nor lumbar tenderness Extremity normal to inspection General Extremety ED: Negative for edema General Extremity: Negative for edema Neuro oriented x3, CN's II-XII intact bilaterally, no sensory deficits noted and gait normal Sensorium / Orientation: awake, alert, oriented to person, oriented to place andoriented to time Motor Exam: strength 5/5 throughout and strength abnormal Psych mental status grossly normal Skin no rashes or lesions noted and no wounds MDM MDM MDM Narrative Medical decision making narrative: Patient presents for medical evaluation and clearance due to dementia and flightrisk from current facility. Patient will need to be evaluated by vp digital marketing social media and crm and will need to arrange outpatient facility that can handle patient's condition. After vp digital marketing social media and crm discussed case with patient [facility] [place] it appears they will take her back as long as she is medically cleared given that she was eloped. CBC with differential obtained was unremarkable. Chemistries unremarkable. Alcohol was negative. Talk screen negative. CT scan of the brain without contrast unremarkable. Urinalysis without signs of infection. At this point she is medically cleared and can go back to the intermediate. Lab Data Attestation: I reviewed the patient's lab results. Labs: Laboratory Results - last 24 hr 12/01/24 12/01/24 13:46 15:00 WBC 6.6 RBC 4.41 Hgb 13.1 Hct 39.6 MCV 89.8 MCH 29.7 MCHC 33.1 RDW Std Deviation 41.1 RDW Coeff of Meño 12.4 Plt Count 342 MPV 8.3 Immature Gran % (Auto) 0.500 Neut % (Auto) 64.7 Lymph % (Auto) 20.8 Navarro % (Auto) 10.1 H Eos % (Auto) 3.3 Baso % (Auto) 0.6 Absolute Neuts (auto) 4.3 Absolute Lymphs (auto) 1.38 Nucleated RBC % 0 Sodium 137 Potassium 4.2 Chloride 103 Carbon Dioxide 18.3 L Anion Gap 16 H BUN 24 H Creatinine 1.01 Estim Creat Clear Calc 39.85 L Est GFR (MDRD) Non-Af 57 L BUN/Creatinine Ratio 23.8 H Glucose 93 Calcium 9.6 Total Bilirubin 0.43 AST 25 ALT 14 Alkaline Phosphatase 46 Total Protein 6.7 Albumin 3.9 Globulin 2.8 Albumin/Globulin Ratio 1.4 Urine Color Yellow Urine Clarity Clear Urine pH 6.0 Ur Specific [place] 1.020 Urine Protein 30 H Urine Glucose (UA) Normal Urine Ketones 5 H Urine Occult Blood Negative Urine Nitrite Negative Urine Bilirubin Negative Urine Urobilinogen Normal Ur Leukocyte Esterase 100 H Urine Opiates Screen NEGATIVE U Buprenorphine Qual NEGATIVE Ur Oxycodone Screen NEGATIVE Urine Methadone Screen NEGATIVE Urine Fentanyl Screen NEGATIVE Ur Barbiturates Screen NEGATIVE Ur Phencyclidine Scrn NEGATIVE Ur Amphetamines Screen NEGATIVE U Benzodiazepines Scrn NEGATIVE Urine Cocaine Screen NEGATIVE U Cannabinoids Screen NEGATIVE Ethyl Alcohol < 10.1 Radiography Diagnostic Testing: Clinical Impression(s) from Imaging Studies Brain CT 12/01/24 13:39 IMPRESSION: 1. No evidence of intracranial hemorrhage or acute ischemia. 2. Changes of chronic microvascular ischemia and volume loss. 3. Postsurgical changes. Reading Location: [facility] EK Initial EKG: Attestation: I personally reviewed and interpreted this EKG as follows: Comments: Sinus rhythm with ventricular rate of 83 bpm with no acute ST segment changes Discharge Plan Triage Chief Complaint: Mental Health ED Provider: Dillon Loza Dx/Rx/DC Orders Clinical Impression: Dementia Instructions: ED Confusion Prescriptions: No Action aspirin 81 mg Tablet 81 mg PO DAILY acetaminophen 325 mg Tablet 650 mg PO Q6H PRN PRN (Reason: Pain 1-10 Or Fever >100.7) Qty: 0 0RF letrozole 2.5 mg tablet 2.5 mg PO DAILY nortriptyline 50 mg capsule 150 mg PO QHS meclizine [Antivert] 25 mg tablet,chewable 25 mg PO TID PRN (Reason: dizziness) Qty: 10 0RF Patient Comments: Per daughter, takes as needed. Rx Instructions: Use if having dizziness. losartan 25 mg tablet 25 mg PO DAILY ondansetron 4 mg tablet,disintegrating 4 mg PO Q6H metformin 500 mg tablet 500 mg PO DAILY Primary Care Provider: Ruddy Cooper Referrals: Ruddy Cooper MD [Primary Care Provider] - 3-5 Days Print Language: Jamaican Disposition Disposition: Home, Self Care What to do if you have Problems For any increased pain, shortness of breath, bleeding, nausea or vomiting, chestpain, or any unexpected problems, contact your Primary Care Provider. Call [facility] ([phone]) or report to the closest Emergency Room. Call 911 if necessary. 12/01/24 1548 <Electronically signed by Dillon Loza DO> Cosigner Signature (if applicable): CC: Dr. Ruddy Cooper MD ~ Signed [facility] Work Phone: [phone] [facility]07-08-2025 History of Present illness Narrative* Dea Dietz LSW - 11/02/2024 3:50 PM EDT Value Based Social Work Progress Note Provider Action / FYI PCP Action none Date of Service: 11/02/2024 Patient identified by name/: Yes- via Telephone Referral Source: Referral Patient Outreach: Follow Up Mode of Outreach: Phone Call Response Time: 11-02-2024 Narrative: Follow up call to patient re food insecurity as was earlier stated by patient several weeks ago. Call to patient today who is currently placed in assisted living. Also spoke to dtr who states they are not sure if this will become a permanent placement. At any rate, dtr denies there was ever food insecurity, stating patient is very confused. Patient currently not in need of Social Work services. Interventions: Advocacy Assessment Discharge from PCSW panel THEA Meier November 02, 2024 3:50 PM [facility] Tele[facility] encounter Note * Telephone Encounter - Poornima Zavala RN - 10/26/2024 4:02 PM EDT Demetra with [facility] calls to report that they are working with patient on admission to their facility. Family is wanting to admit tomorrow. Demetra requesting most recent OV notes, demographics, medication list, and problem list. Faxed to [phone] per request. Poornima Zavala RN [facility]07-01-2025 Miscellaneous Notes* Telephone Encounter - Poornima Zavala RN - 10/26/2024 4:02 PM EDT Demetra with [facility] calls to report that they are working with patient on admission to their facility. Family is wanting to admit tomorrow. Demetra requesting most recent OV notes, demographics, medication list, and problem list. Faxed to [phone] per request. Poornima Zavala RN [facility] Consult note Author Kaya Thrasher [facility] Note Date/Time October 25, 2024 3:30 pm [facility] Medical Records Department [address] [place] [address] Counseling Note - Pharmacy 10/25/24 1334 MR#: [id number] Acct: [id number] Name: JUDI PITTMAN Rep #:[id number] : 1945 79 From: Kaya Thrasher PCP: Dr. Ruddy Cooper MD Status:TERRELL Quintero Location: [place] [address] Med Reconciliation Pharmacy Service has performed discharge medication reconciliation for this patient. The patient's discharge medication list was reviewed for discrepancies and discrepancies were resolved. Medications at Discharge Home Medications aspirin 81 mg tablet 81 mg PO DAILY heart health 02/02/21 letrozole 2.5 mg tablet 2.5 mg PO DAILY 08/25/24 nortriptyline 50 mg capsule 150 mg PO QHS 08/25/24 meclizine 25 mg chewable tablet (Antivert) 25 mg PO TID PRN dizziness #10 tabs 09/09/24 losartan 25 mg tablet 25 mg PO DAILY 10/10/24 acetaminophen 325 mg tablet 650 mg (2 x 325 mg) PO Q6H PRN PRN Pain 1-10 Or Fever >100.7 #0 tabs 10/25/24 ibuprofen 600 mg tablet 600 mg PO Q6H PRN PRN Pain Score 1-10 #0 tabs 10/25/24 metformin 500 mg tablet 500 mg PO BID diabetes mellitus #1 TAB 10/25/24 10/25/24 1334 <Electronically signed by Kaya Thrasher> Date _ Kaya Thrasher Cosigner Signature (if applicable): Date ____ CC: ~ Signed [facility] Work Phone: 1(203) 591-601406-30-2025 Discharge summary Author [facility] Note Date/Time October 25, 2024 1:32 pm [facility] Medical Records Department [address] [place] [address] Discharge Summary 10/25/24 1327 MR#: [id number] Acct: [id number] Name: JUDI PITTMAN Rep #:[id number] : 1945 79 From: Fitz Vázquez DO PCP: Dr. Ruddy Cooper MD Status:TERRELL HERRING Location: [place] [id number] Providers Date of Admission: 10/19/24 Primary Care Physician: Dr. Ruddy Cooper MD Reason For Visit: FALL GENERAL WEAKNESS Diagnosis Discharge Diagnosis (1) Dementia without behavioral disturbance: Status: Acute Code(s): F03.90 - Unspecified dementia, unspecified severity, without behavioral disturbance, psychotic disturbance, mood disturbance, and anxiety (2) Generalized weakness: Status: Acute Code(s): R53.1 - Weakness Plan 1. Acute on chronic debility-secondary to multiple medical problems including dementia and type 2 diabetes with neuropathy-PT and OT will continue to work with the patient, again it may be necessary for the patient to go to a half-way facility under intermediate care. #2 type 2 diabetes-patient is on sliding scale insulin, she is on metformin #3 essential hypertension-patient is not on losartan at this time, I will add a small dose of losartan to her medications for proteinuria from her diabetes. #4 dementia without behavioral disturbances-complicates care, management, recovery, and prognosis Total clinical time spent by myself addressing the patient's medical issues, reviewing all of her data, and collaborating with patient's care team: 25 minutes Medications at Discharge Home Medications aspirin 81 mg tablet 81 mg PO DAILY [facility] 02/02/21 letrozole 2.5 mg tablet 2.5 mg PO DAILY 08/25/24 nortriptyline 50 mg capsule 150 mg PO QHS 08/25/24 meclizine 25 mg chewable tablet (Antivert) 25 mg PO TID PRN dizziness #10 tabs 09/09/24 losartan 25 mg tablet 25 mg PO DAILY 10/10/24 acetaminophen 325 mg tablet 650 mg (2 x 325 mg) PO Q6H PRN PRN Pain 1-10 Or Fever >100.7 #0 tabs 10/25/24 ibuprofen 600 mg tablet 600 mg PO Q6H PRN PRN Pain Score 1-10 #0 tabs 10/25/24 metformin 500 mg tablet 500 mg PO BID diabetes mellitus #1 TAB 10/25/24 Hospital Course Operations None Procedures None Summary of Care Provided Minutes Spent on Discharge: 31 Hospital Course: This 79-year-old white female was seen in the emergency room at [facility] after being brought in by squad from home. The daughter of the patient called for a while-the daughter lives in [place], the patient lives alone and intermittently ambulates with a cane or walker if needed. 1 daughter lives in [place] and 1 lives in the [facility], patient stated that she was on the ground and had a hard time getting up without assistance. She stated she was only on the ground for about an hour, daughter called EMS for a well check and she was found on the ground in her home, the patient was confused. Patient denied any pain. Labs were performed, WBC was normal, hemoglobin was normal, chemistry profile was unremarkable, urinalysis was unremarkable. Chest x-ray showed no acute abnormality, brain CT showed no changes compared with prior examand no acute abnormality. Patient was placed in observation status on [facility], she was seen by PT and OT, she remained confused during her hospitalization but was not aggressive or belligerent. It was the daughters wish that the patient go to an extended care facility, her insurance denied this and arranges were made for the patient to go to the facility under intermediate care. On 10/25/2024, patient was seen and examined:alert and no apparent distress Constitutional Narrative: Patient is confused but she is not agitated General Appearance: cooperative, well kempt and well developed Orientation / Consciousness: awake and oriented to person HEENT normocephalic, head/scalp atraumatic and moist oral mucous membranes Eyes PERRL, EOMs intact bilaterally and conjunctivae normal Neck supple, no JVD, thyroid normal and no carotid bruits General: trachea midline Resp normal respiratory effort, no retractions, no use of accessory muscles and clearto auscultation bilaterally Auscultation: Negative for rales, rhonchi or wheezes Cardio regular rate, regular rhythm, no murmurs, no rub and no gallops GI normal to inspection, nondistended, normoactive bowel sounds, soft to palpation,non-tender and non-distended Extremity no clubbing, cyanosis or edema Skin no rashes or lesions noted General Skin Exam: no breakdown Neuro CN's II-XII intact bilaterally, no focal motor deficits and no sensory deficits noted Neuro Narrative: Patient is confused, she is not agitated Sensorium / Orientation: awake, alert and oriented to person Speech: speech normal Psych Psych Narrative: Patient is confused, she is not agitated Patient was discharged to [facility] in [facility] on 10/25/2024in stable condition Weight / BMI Weight Weight: 64.7 kg Body Mass Index (BMI) 27.8 ABG / Lab / Microbiology Data 10/20/24 04:41 10/20/24 04:41 Laboratory: Laboratory Results - last 24 hr 10/24/24 11:48: POC Glucose 109 H 10/24/24 17:42: POC Glucose 160 H D/C Instructions DC O2, CPAP, BIPAP Needs [...] Simvastatin 80mg Discharge Plan Admission Admit Date/Time: 10/19/24 18:41 Primary Reason for Your Visit: General debility secondary to dementia Attending Provider: Fitz Vázquez Primary Care Provider: Ruddy Cooper Consulting Providers: Desiree Awan Discharge Orders/Prescriptions Prescriptions: New acetaminophen 325 mg Tablet 650 mg PO Q6H PRN PRN (Reason: Pain 1-10 Or Fever >100.7) Qty: 0 0RF ibuprofen 600 mg Tablet 600 mg PO Q6H PRN PRN (Reason: Pain Score 1-10) Qty: 0 0RF Continued aspirin 81 mg Tablet 81 mg PO DAILY letrozole 2.5 mg tablet 2.5 mg PO DAILY nortriptyline 50 mg capsule 150 mg PO QHS meclizine [Antivert] 25 mg tablet,chewable 25 mg PO TID PRN (Reason: dizziness) Qty: 10 0RF Patient Comments: Per daughter, takes as needed. Rx Instructions: Use if having dizziness. losartan 25 mg tablet 25 mg PO DAILY Changed metformin 500 mg tablet 500 mg PO BID Qty: 1 0RF Discontinued cefdinir 300 mg capsule 300 mg PO BID Qty: 6 0RF Referrals / Follow Up: Ruddy Cooper MD [Primary Care Provider] - Disposition Disposition (needs filled in before D/C Order can be placed): [facility] Charges/Coding Visit Charges Inpatient E&M: 27580 Disch Hosp >30min 10/25/24 1332 <Electronically signed by Fitz Vázquez DO> Cosigner Signature (if applicable): CC: Dr. Ruddy Cooper MD; Dr. Fitz Vázquez DO~ Signed [facility] Work Phone: 1(138) 743-721806-30-2025 Consult note [facility] Medical Records Department [address] [place] [address] Counseling Note - Pharmacy 10/25/24 1334 MR#: [id number] Acct: [id number] Name: JUDI PITTMAN Rep #:[id number] : 1945 79 From: Kaya Thrasher PCP: Dr. Ruddy Cooper MD Status:TERRELL HERRING Y Location: [place] [address] Med Reconciliation Pharmacy Service has performed discharge medication reconciliation for this patient. The patient's discharge medication list was reviewed for discrepancies and discrepancies were resolved. Medications at Discharge Home Medications aspirin 81 mg tablet 81 mg PO DAILY heart health 02/02/21 letrozole 2.5 mg tablet 2.5 mg PO DAILY 08/25/24 nortriptyline 50 mg capsule 150 mg PO QHS 08/25/24 meclizine 25 mg chewable tablet (Antivert) 25 mg PO TID PRN dizziness #10 tabs 09/09/24 losartan 25 mg tablet 25 mg PO DAILY 10/10/24 acetaminophen 325 mg tablet 650 mg (2 x 325 mg) PO Q6H PRN PRN Pain 1-10 Or Fever >100.7 #0 tabs10/25/24 ibuprofen 600 mg tablet 600 mg PO Q6H PRN PRN Pain Score 1-10 #0 tabs 10/25/24 metformin 500 mg tablet 500 mg PO BID diabetes mellitus #1 TAB 10/25/24 10/25/24 1334 Date _ Kaya Phillip Signature (if applicable): Date CC: ~ Signed [facility]06-30-2025 Discharge summary Author Fitz Vázquez [facility] Note Date/Time October 25, 2024 1:27 pm [facility] Medical Records Department [address] [facility] [place] [address] Transfer to [facility] MR#: [id number] Acct: [id number] Name: JUDI PITTMAN Chevy Rep #:[id number] : 1945 79 From: Fitz Vázquez DO PCP: Dr. Ruddy Cooper MD Status:TERRELL HERRING Certification of patient admission REQUIRED AT TIME OF ADMISSION. I CERTIFY THAT POST-HOSPITAL ECF SERVICES ARE REQUIRED TO BE GIVEN ON AN IN-PATIENT BASIS BECAUSE OF THE ABOVE NAMED PATIENT'S NEED FOR JAIL CARE ON A CONTINUING BASIS FOR THE CONDITION(S) FOR WHICH HE/SHE WAS RECEIVING IN-PATIENT HOSPITAL SERVICES PRIOR TO HIS/HER TRANSFER TO THE [facility]. 10/25/24 1327<Electronically signed by Fitz Vázquez DO> Diet Diet Order/Speech Therapy: INPATIENT Hospital Diet / Speech Therapy Order(s) 10/19/24 21:13 Diet: Regular - General Food consistency:: Regular Liquid Consistency:: Regular/Thin Dietary Modifications:: Consistent Carbohydrate Routine Orders/Code Status Code Status: DNRCC-A (No intubation) DC O2, CPAP, BIPAP needs Home O2 Discharge instructions: No Therapies Weight Bearing: Full weight bearing Problem/Diagnosis (1) Dementia without behavioral disturbance: Status: Acute Code(s): F03.90 - Unspecified dementia, unspecified severity, without behavioral disturbance, psychotic disturbance, mood disturbance, and anxiety (2) Generalized weakness: Status: Acute Code(s): R53.1 - Weakness Plan 1. Acute on chronic debility-secondary to multiple medical problems including dementia and type 2 diabetes with neuropathy-PT and OT will continue to work with the patient, again it may be necessary for the patient to go to a half-way facility under intermediate care. #2 type 2 diabetes-patient is on sliding scale insulin, she is on metformin #3 essential hypertension-patient is not on losartan at this time, I will add a small dose of losartan to her medications for proteinuria from her diabetes. #4 dementia without behavioral disturbances-complicates care, management, recovery, and prognosis Total clinical time spent by myself addressing the patient's medical issues, reviewing all of her data, and collaborating with patient's care team: 25 minutes Allergies/Procedures Done in Hospital Allergies codeine Adverse Reaction (Verified 09/08/24 22:11) Nausea fluoxetine HCl (From Prozac) Adverse Reaction (Verified 09/08/24 22:11) shivers morphine Adverse Reaction (Verified 09/08/24 22:11) Nausea Procedures: None Type of Care/Length of Stay Estimated LOS: More Than 30 Days Type of Care Needed: Intermediate Rehab Potential: Fair Prognosis: Fair Additional Orders/Day of Discharge H&P will serve as current which was dated: 10/19/24 Day of Discharge: 10/25/24 Discharge Plan Admission Admit Date/Time: 10/19/24 18:41 Primary Reason for Your Visit: General debility secondary to dementia Attending Provider: Fitz Vázquez Primary Care Provider: Ruddy Cooper Consulting Providers: Desiree Awan Discharge Orders/Prescriptions Prescriptions: New acetaminophen 325 mg Tablet 650 mg PO Q6H PRN PRN (Reason: Pain 1-10 Or Fever >100.7) Qty: 0 0RF ibuprofen 600 mg Tablet 600 mg PO Q6H PRN PRN (Reason: Pain Score 1-10) Qty: 0 0RF Continued aspirin 81 mg Tablet 81 mg PO DAILY letrozole 2.5 mg tablet 2.5 mg PO DAILY nortriptyline 50 mg capsule 150 mg PO QHS meclizine [Antivert] 25 mg tablet,chewable 25 mg PO TID PRN (Reason: dizziness) Qty: 10 0RF Patient Comments: Per daughter, takes as needed. Rx Instructions: Use if having dizziness. losartan 25 mg tablet 25 mg PO DAILY Changed metformin 500 mg tablet 500 mg PO BID Qty: 1 0RF Discontinued cefdinir 300 mg capsule 300 mg PO BID Qty: 6 0RF Referrals / Follow Up: Ruddy Cooper MD [Primary Care Provider] - Disposition Disposition (needs filled in before D/C Order can be placed): [facility] 10/25/24 1327 <Electronically signed by Fitz Vázquez DO> Cosigner Signature (if applicable): CC: Dr. Ruddy Cooper MD; Dr. Desiree Awan MD ~ [facility] Work Phone: 1(653) 332-205206-30-2025 Discharge summary [facility] Medical Records Department [address] [place] [id number] Discharge Summary 10/25/24 1327 MR#: [id number] Acct: [id number] Name: JUDI PITTMAN Rep #:[id number] : 1945 79 From: Fitz Vázquez DO PCP: Dr. Ruddy Cooper MD Status:TERRELL HERRING [id number] Prov[facility] Date of Admission: 10/19/24 Primary Care Physician: Dr. Ruddy Cooper MD Reason For Visit: FALL GENERAL WEAKNESS Diagnosis Discharge Diagnosis (1) Dementia without behavioral disturbance: Status: Acute Code(s): F03.90 - Unspecified dementia, unspecified severity, without behavioral disturbance, psychotic disturbance, mood disturbance, and anxiety (2) Generalized weakness: Status: Acute Code(s): R53.1 - Weakness Plan 1. Acute on chronic debility-secondary to multiple medical problems including dementia and type 2 diabetes with neuropathy-PT and OT will continue to work with the patient, again it may be necessary for the patient to go to a half-way facility under intermediate care. #2 type 2 diabetes-patient is on sliding scale insulin, she is on metformin #3 essential hypertension-patient is not on losartan at this time, I will add a small dose of losartan to her medications for proteinuria from her diabetes. #4 dementia without behavioral disturbances-complicates care, management, recovery, and prognosis Total clinical time spent by myself addressing the patient's medical issues, reviewing all of her data, and collaborating with patient's care team: 25 minutes Medications at Discharge Home Medications aspirin 81 mg tablet 81 mg PO DAILY heart health 02/02/21 letrozole 2.5 mg tablet 2.5 mg PO DAILY 08/25/24 nortriptyline 50 mg capsule 150 mg PO QHS 08/25/24 meclizine 25 mg chewable tablet (Antivert) 25 mg PO TID PRN dizziness #10 tabs 09/09/24 losartan 25 mg tablet 25 mg PO DAILY 10/10/24 acetaminophen 325 mg tablet 650 mg (2 x 325 mg) PO Q6H PRN PRN Pain 1-10 Or Fever >100.7 #0 tabs10/25/24 ibuprofen 600 mg tablet 600 mg PO Q6H PRN PRN Pain Score 1-10 #0 tabs 10/25/24 metformin 500 mg tablet 500 mg PO BID diabetes mellitus #1 TAB 10/25/24 Hospital Course Operations None Procedures None Summary of Care Provided Minutes Spent on Discharge: 31 Hospital Course: This 79-year-old white female was seen in the emergency room at [facility] after being brought in by squad from home. The daughter of the patient called for a while-the daughter livesin [place], the patient lives alone and intermittently ambulates with a cane or walker if needed. 1daughter lives in [place] and 1 lives in the [facility], patient stated that she was on the ground and had a hard time getting up without assistance. She stated she was only on the ground for about anhour, daughter called EMS for a well check and she was found on the ground in her home, the patientwas confused. Patient denied any pain. Labs were performed, WBC was normal, hemoglobin was normal, chemistry profile was unremarkable, urinalysis was unremarkable. Chest x-ray showed no acute abnormality, brain CT showed no changes compared with prior examand no acute abnormality. Patient was placed in observation status on [facility], she was seen by PT and OT, she remained confused during her hospitalization but was not aggressive or belligerent. It was the daughters wish that the patient go to an extended care facility, her insurance denied this and arranges were made for the patient to [facility] care. On 10/25/2024, patient was seen and examined:alert and no apparent distress Constitutional Narrative: Patient is confused but she is not agitated General Appearance: cooperative, well kempt and well developed Orientation / Consciousness: awake and oriented to person HEENT normocephalic, head/scalp atraumatic and moist oral mucous membranes Eyes PERRL, EOMs intact bilaterally and conjunctivae normal Neck supple, no JVD, thyroid normal and no carotid bruits General: trachea midline Resp normal respiratory effort, no retractions, no use of accessory muscles and clearto auscultation bilaterally Auscultation: Negative for rales, rhonchi or wheezes Cardio regular rate, regular rhythm, no murmurs, no rub and no gallops GI normal to inspection, nondistended, normoactive bowel sounds, soft to palpation,non-tender and non-distended Extremity no clubbing, cyanosis or edema Skin no rashes or lesions noted General Skin Exam: no breakdown Neuro CN's II-XII intact bilaterally, no focal motor deficits and no sensory deficits noted Neuro Narrative: Patient is confused, she is not agitated Sensorium / Orientation: awake, alert and oriented to person Speech: speech normal Psych Psych Narrative: Patient is confused, she is not agitated Patient was discharged to [facility] in [facility] on 10/25/2024in stable condition Weight / BMI Weight Weight: 64.7 kg Body Mass Index (BMI) 27.8 ABG / Lab / Microbiology Data 10/20/24 04:41 10/20/24 04:41 Laboratory: Laboratory Results - last 24 hr 10/24/24 11:48: POC Glucose 109 H 10/24/24 17:42: POC Glucose 160 H D/C Instructions DC O2, CPAP, BIPAP Needs [...] Simvastatin 80mg Discharge Plan Admission Admit Date/Time: 10/19/24 18:41 Primary Reason for Your Visit: General debility secondary to dementia Attending Provider: Fitz Vázquez Primary Care Provider: Ruddy Cooper Consulting Providers: Desiree Awan Discharge Orders/Prescriptions Prescriptions: New acetaminophen 325 mg Tablet 650 mg PO Q6H PRN PRN (Reason: Pain 1-10 Or Fever >100.7) Qty: 0 0RF ibuprofen 600 mg Tablet 600 mg PO Q6H PRN PRN (Reason: Pain Score 1-10) Qty: 0 0RF Continued aspirin 81 mg Tablet 81 mg PO DAILY letrozole 2.5 mg tablet 2.5 mg PO DAILY nortriptyline 50 mg capsule 150 mg PO QHS meclizine [Antivert] 25 mg tablet,chewable 25 mg PO TID PRN (Reason: dizziness) Qty: 10 0RF Patient Comments: Per daughter, takes as needed. Rx Instructions: Use if having dizziness. losartan 25 mg tablet 25 mg PO DAILY Changed metformin 500 mg tablet 500 mg PO BID Qty: 1 0RF Discontinued cefdinir 300 mg capsule 300 mg PO BID Qty: 6 0RF Referrals / Follow Up: Ruddy Cooper MD [Primary Care Provider] - Disposition Disposition (needs filled in before D/C Order can be placed): [facility] Charges/Coding Visit Charges Inpatient E&M: 40129 Disch Hosp >30min 10/25/24 1332 Cosigner Signature (if applicable): CC: Dr. Ruddy Cooper MD; Dr. Fitz Vázquez DO~ Signed [facility]06-30-2025 Discharge summary [facility] Medical Records Department [address] [place] [address] Transfer to [facility] MR#: [id number] Acct: [id number] Name: JUDI PITTMAN Rep #:[id number] : 1945 79 From: Fitz Vázquez DO PCP: Dr. Ruddy Cooepr MD Status:TERRELL HERRING Certification of patient admission REQUIRED AT TIME OF ADMISSION. I CERTIFY THAT POST-HOSPITAL ECF SERVICES ARE REQUIRED TO BE GIVEN ON AN IN-PATIENT BASIS BECAUSE OF THE ABOVE NAMED PATIENT'S NEED FOR JAIL CARE ON A CONTINUING BASIS FOR THE CONDITION(S) FOR WHICH HE/SHE WAS RECEIVING IN-PATIENT HOSPITAL SERVICES PRIOR TO HIS/HER TRANSFER TO THE F. 10/25/24 1327 Diet Diet Order/Speech Therapy: INPATIENT Hospital Diet / Speech Therapy Order(s) 10/19/24 21:13 Diet: Regular - General Food consistency:: Regular Liquid Consistency:: Regular/Thin Dietary Modifications:: Consistent Carbohydrate Routine Orders/Code Status Code Status: DNRCC-A (No intubation) DC O2, CPAP, BIPAP needs Home O2 Discharge instructions: No Therapies Weight Bearing: Full weight bearing Problem/Diagnosis (1) Dementia without behavioral disturbance: Status: Acute Code(s): F03.90 - Unspecified dementia, unspecified severity, without behavioral disturbance, psychotic disturbance, mood disturbance, and anxiety (2) Generalized weakness: Status: Acute Code(s): R53.1 - Weakness Plan 1. Acute on chronic debility-secondary to multiple medical problems including dementia and type 2 diabetes with neuropathy-PT and OT will continue to work with the patient, again it may be necessary for the patient to go to a half-way facility under intermediate care. #2 type 2 diabetes-patient is on sliding scale insulin, she is on metformin #3 essential hypertension-patient is not on losartan at this time, I will add a small dose of losartan to her medications for proteinuria from her diabetes. #4 dementia without behavioral disturbances-complicates care, management, recovery, and prognosis Total clinical time spent by myself addressing the patient's medical issues, reviewing all of her data, and collaborating with patient's care team: 25 minutes Allergies/Procedures Done in Hospital Allergies codeine Adverse Reaction (Verified 09/08/24 22:11) Nausea fluoxetine HCl (From Prozac) Adverse Reaction (Verified 09/08/24 22:11) shivers morphine Adverse Reaction (Verified 09/08/24 22:11) Nausea Procedures: None Type of Care/Length of Stay Estimated LOS: More Than 30 Days Type of Care Needed: Intermediate Rehab Potential: Fair Prognosis: Fair Additional Orders/Day of Discharge H&P will serve as current which was dated: 10/19/24 Day of Discharge: 10/25/24 Discharge Plan Admission Admit Date/Time: 10/19/24 18:41 Primary Reason for Your Visit: General debility secondary to dementia Attending Provider: Fitz Vázquez Primary Care Provider: Ruddy Cooper Consulting Providers: Desiree Awan Discharge Orders/Prescriptions Prescriptions: New acetaminophen 325 mg Tablet 650 mg PO Q6H PRN PRN (Reason: Pain 1-10 Or Fever >100.7) Qty: 0 0RF ibuprofen 600 mg Tablet 600 mg PO Q6H PRN PRN (Reason: Pain Score 1-10) Qty: 0 0RF Continued aspirin 81 mg Tablet 81 mg PO DAILY letrozole 2.5 mg tablet 2.5 mg PO DAILY nortriptyline 50 mg capsule 150 mg PO QHS meclizine [Antivert] 25 mg tablet,chewable 25 mg PO TID PRN (Reason: dizziness) Qty: 10 0RF Patient Comments: Per daughter, takes as needed. Rx Instructions: Use if having dizziness. losartan 25 mg tablet 25 mg PO DAILY Changed metformin 500 mg tablet 500 mg PO BID Qty: 1 0RF Discontinued cefdinir 300 mg capsule 300 mg PO BID Qty: 6 0RF Referrals / Follow Up: Ruddy Cooper MD [Primary Care Provider] - Disposition Disposition (needs filled in before D/C Order can be placed[facility] 10/25/24 1327 Cosigner Signature (if applicable): CC: Dr. Ruddy Cooper MD; Dr. Desiree Awan MD ~ [facility]06-30-2025 [facility]06-29-2025 Progress note Author Fitz Vázquez [facility] Note Date/Time October 24, 2024 4:43 pm [facility] Medical Records Department [address] [place] [address] Progress Note - Hospitalist 10/24/24 1640 MR#: [id number] Acct: [id number] Name: JUDI PITTMAN Rep #:[id number] : 1945 79 From: Fitz Vázquez DO PCP: Dr. Ruddy Cooper MD Status:AD M NEVAEH Location: [place] [address] Reason for Visit Reason for Visit: Diagnoses Unspecified dementia, unspecified severity, without behavioral disturbance, psychotic disturbance, mood disturbance, and anxiety (10/19/24) Weakness (10/19/24) Subjective Subjective Patient seen and examined today, she remains confused but not agitated. She does not appear in any distress. Objective Data Objective Data Vital Signs: Vital Signs Temp Pulse Resp BP Pulse Ox O2 Del Method 98.3 F 76 19 H 121/65 H 98 Room Air 10/24/24 14:32 10/24/24 14:32 10/24/24 14:32 10/24/24 14:32 10/24/24 14:32 10/24/24 14:32 Oxygen Delivery Method Room Air Weight: 64.7 kg Body Mass Index (BMI) 27.8 Lab / Micro Data 10/20/24 04:41 10/20/24 04:41 Labs: Laboratory Results - last 24 hr 10/23/24 20:43: POC Glucose 146 H 10/24/24 11:48: POC Glucose 109 H Physical Exam Narrative alert and no apparent distress Constitutional Narrative: Patient is confused but she is not agitated General Appearance: cooperative, well kempt and well developed Orientation / Consciousness: awake and oriented to person HEENT normocephalic, head/scalp atraumatic and moist oral mucous membranes Eyes PERRL, EOMs intact bilaterally and conjunctivae normal Neck supple, no JVD, thyroid normal and no carotid bruits General: trachea midline Resp normal respiratory effort, no retractions, no use of accessory muscles and clearto auscultation bilaterally Auscultation: Negative for rales, rhonchi or wheezes Cardio regular rate, regular rhythm, no murmurs, no rub and no gallops GI normal to inspection, nondistended, normoactive bowel sounds, soft to palpation,non-tender and non-distended Extremity no clubbing, cyanosis or edema Skin no rashes or lesions noted General Skin Exam: no breakdown Neuro CN's II-XII intact bilaterally, no focal motor deficits and no sensory deficits noted Neuro Narrative: Patient is confused, she is not agitated Sensorium / Orientation: awake, alert and oriented to person Speech: speech normal Psych Psych Narrative: Patient is confused, she is not agitated Assessment & Plan Assessment/Plan (1) Dementia without behavioral disturbance: (2) Generalized weakness: PLAN: Plan 1. Acute on chronic debility-secondary to multiple medical problems including dementia and type 2 diabetes with neuropathy-PT and OT will continue to work with the patient, again it may be necessary for the patient to go to a half-way facility under intermediate care. #2 type 2 diabetes-patient is on sliding scale insulin, she is on metformin #3 essential hypertension-patient is not on losartan at this time, I will add a small dose of losartan to her medications for proteinuria from her diabetes. #4 dementia without behavioral disturbances-complicates care, management, recovery, and prognosis Total clinical time spent by myself addressing the patient's medical issues, reviewing all of her data, and collaborating with patient's care team: 25 minutes Charges/Coding Visit Charges Inpatient E&M: 56075 Subs Hosp L2 10/24/24 1643 <Electronically signed by Fitz Vázquez DO> Cosigner Signature (if applicable): CC: ~ Signed [facility] Work Phone: 1(731) 618-686506-29-2025 Progress note [facility] Medical Records Department [address] [place] [address] Progress Note - Hospitalist 10/24/24 1640 MR#: [id number] Acct: [id number] Name: JUDI PITTMAN Rep #:[id number] : 1945 79 From: Fitz Vázquez DO PCP: Dr. Ruddy Cooper MD Status:TERRELL HERRING [facility] Reason for Visit Reason for Visit: Diagnoses Unspecified dementia, unspecified severity, without behavioral disturbance, psychotic disturbance, mood disturbance, and anxiety (10/19/24) Weakness (10/19/24) Subjective Subjective Patient seen and examined today, she remains confused but not agitated. She does not appear in any distress. Objective Data Objective Data Vital Signs: Vital Signs Temp Pulse Resp BP Pulse Ox O2 Del Method 98.3 F 76 19 H 121/65 H 98 Room Air 10/24/24 14:32 10/24/24 14:32 10/24/24 14:32 10/24/24 14:32 10/24/24 14:32 10/24/24 14:32 Oxygen Delivery Method Room Air Weight: 64.7 kg Body Mass Index (BMI) 27.8 Lab / Micro Data 10/20/24 04:41 10/20/24 04:41 Labs: Laboratory Results - last 24 hr 10/23/24 20:43: POC Glucose 146 H 10/24/24 11:48: POC Glucose 109 H Physical Exam Narrative alert and no apparent distress Constitutional Narrative: Patient is confused but she is not agitated General Appearance: cooperative, well kempt and well developed Orientation / Consciousness: awake and oriented to person HEENT normocephalic, head/scalp atraumatic and moist oral mucous membranes Eyes PERRL, EOMs intact bilaterally and conjunctivae normal Neck supple, no JVD, thyroid normal and no carotid bruits General: trachea midline Resp normal respiratory effort, no retractions, no use of accessory muscles and clearto auscultation bilaterally Auscultation: Negative for rales, rhonchi or wheezes Cardio regular rate, regular rhythm, no murmurs, no rub and no gallops GI normal to inspection, nondistended, normoactive bowel sounds, soft to palpation,non-tender and non-distended Extremity no clubbing, cyanosis or edema Skin no rashes or lesions noted General Skin Exam: no breakdown Neuro CN's II-XII intact bilaterally, no focal motor deficits and no sensory deficits noted Neuro Narrative: Patient is confused, she is not agitated Sensorium / Orientation: awake, alert and oriented to person Speech: speech normal Psych Psych Narrative: Patient is confused, she is not agitated Assessment & Plan Assessment/Plan (1) Dementia without behavioral disturbance: (2) Generalized weakness: PLAN: Plan 1. Acute on chronic debility-secondary to multiple medical problems including dementia and type 2 diabetes with neuropathy-PT and OT will continue to work with the patient, again it may be necessary for the patient to go to a half-way facility under intermediate care. #2 type 2 diabetes-patient is on sliding scale insulin, she is on metformin #3 essential hypertension-patient is not on losartan at this time, I will add a small dose of losartan to her medications for proteinuria from her diabetes. #4 dementia without behavioral disturbances-complicates care, management, recovery, and prognosis Total clinical time spent by myself addressing the patient's medical issues, reviewing all of her data, and collaborating with patient's care team: 25 minutes Charges/Coding Visit Charges Inpatient E&M: 23425 Subs Hosp L2 10/24/24 1645 Cosigner Signature (if applicable): CC: ~ Signed [facility]06-28-2025 Progress note Author [facility] Note Date/Time October 23, 2024 2:23 pm [facility] Medical Records Department [address] [place] [address] Progress Note - Hospitalist 10/23/24 1421 MR#: [id number] Acct: [id number] Name: JUDI PITTMAN Rep #:[id number] : 1945 79 From: Fitz Vázquez DO PCP: Dr. Ruddy Cooper MD Status:AD M NEVAEH Location: [place] [address] Reason for Visit Reason for Visit: Diagnoses Unspecified dementia, unspecified severity, without behavioral disturbance, psychotic disturbance, mood disturbance, and anxiety (10/19/24) Weakness (10/19/24) Subjective Subjective Patient was seen and examined today, she remains confused, she thought I was themaintenance person for the hospital when I came in her room. We are currently awaiting notification on the pre-CERT request for admission to the skilled facility, again because of the weekend we will not hear anything from the facility until Friday. Objective Data Objective Data Vital Signs: Vital Signs Temp Pulse Resp BP Pulse Ox O2 Del Method 97.3 F L 98 18 112/81 H 98 Room Air 10/23/24 10:31 10/23/24 10:31 10/23/24 10:31 10/23/24 10:31 10/23/24 10:31 10/23/24 10:31 Oxygen Delivery Method Room Air Weight: 64.7 kg Body Mass Index (BMI) 27.8 Intake & Output: Intake and Output for Last 24 Hours 10/21/24 10/22/24 10/23/24 23:59 23:59 23:59 Intake Total 1000 / 1000 Balance 1000 / 1000 Lab / Micro Data 10/20/24 04:41 10/20/24 04:41 Labs: Laboratory Results - last 24 hr 10/22/24 16:41: POC Glucose 106 Physical Exam Narrative alert and no apparent distress Constitutional Narrative: Patient is confused but she is not agitated General Appearance: cooperative, well kempt and well developed Orientation / Consciousness: awake and oriented to person HEENT normocephalic, head/scalp atraumatic and moist oral mucous membranes Eyes PERRL, EOMs intact bilaterally and conjunctivae normal Neck supple, no JVD, thyroid normal and no carotid bruits General: trachea midline Resp normal respiratory effort, no retractions, no use of accessory muscles and clearto auscultation bilaterally Auscultation: Negative for rales, rhonchi or wheezes Cardio regular rate, regular rhythm, no murmurs, no rub and no gallops GI normal to inspection, nondistended, normoactive bowel sounds, soft to palpation,non-tender and non-distended Extremity no clubbing, cyanosis or edema Skin no rashes or lesions noted General Skin Exam: no breakdown Neuro CN's II-XII intact bilaterally, no focal motor deficits and no sensory deficits noted Neuro Narrative: Patient is confused, she is not agitated Sensorium / Orientation: awake, alert and oriented to person Speech: speech normal Psych Psych Narrative: Patient is confused, she is not agitated Assessment & Plan Assessment/Plan (1) Dementia without behavioral disturbance: (2) Generalized weakness: PLAN: Plan 1. Acute on chronic debility-secondary to multiple medical problems including dementia and type 2 diabetes with neuropathy-PT and OT will continue to work with the patient, again it may be necessary for the patient to go to a half-way facility under intermediate care. #2 type 2 diabetes-patient is on sliding scale insulin, he is on metformin #3 essential hypertension-patient is not on losartan at this time, I will observe her blood pressure off this medication-she may not need this medication. #4 dementia without behavioral disturbances-complicates care, management, recovery, and prognosis Total clinical time spent by myself addressing the patient's medical issues, reviewing all of her data, and collaborating with patient's care team: 25 minutes Charges/Coding Visit Charges Inpatient E&M: 82459 Subs Hosp L1 10/23/24 1423 <Electronically signed by Fitz Vázquez DO> Cosigner Signature (if applicable): CC: ~ Signed [facility] Work Phone: 1(397) 171-667006-28-2025 Progress note [facility] Medical Records Department [address] [place] [address] Progress Note - Hospitalist 10/23/24 1421 MR#: [id number] Acct: [id number] Name: JUDI PITTMAN Rep #:[id number] : 1945 79 From: Fitz Vázquez DO PCP: Dr. Ruddy Cooper MD Status:AD M NEVAEH [facility] Reason for Visit Reason for Visit: Diagnoses Unspecified dementia, unspecified severity, without behavioral disturbance, psychotic disturbance, mood disturbance, and anxiety (10/19/24) Weakness (10/19/24) Subjective Subjective Patient was seen and examined today, she remains confused, she thought I was themaintenance person for the hospital when I came in her room. We are currently awaiting notification on the pre-CERT request for admission to the skilled facility, again because of the weekend we will not hear anything from the facility until Friday. Objective Data Objective Data Vital Signs: Vital Signs Temp Pulse Resp BP Pulse Ox O2 Del Method 97.3 F L 98 18 112/81 H 98 Room Air 10/23/24 10:31 10/23/24 10:31 10/23/24 10:31 10/23/24 10:31 10/23/24 10:31 10/23/24 10:31 Oxygen Delivery Method Room Air Weight: 64.7 kg Body Mass Index (BMI) 27.8 Intake & Output: Intake and Output for Last 24 Hours 10/21/24 10/22/24 10/23/24 23:59 23:59 23:59 Intake Total 1000 / 1000 Balance 1000 / 1000 Lab / Micro Data 10/20/24 04:41 10/20/24 04:41 Labs: Laboratory Results - last 24 hr 10/22/24 16:41: POC Glucose 106 Physical Exam Narrative alert and no apparent distress Constitutional Narrative: Patient is confused but she is not agitated General Appearance: cooperative, well kempt and well developed Orientation / Consciousness: awake and oriented to person HEENT normocephalic, head/scalp atraumatic and moist oral mucous membranes Eyes PERRL, EOMs intact bilaterally and conjunctivae normal Neck supple, no JVD, thyroid normal and no carotid bruits General: trachea midline Resp normal respiratory effort, no retractions, no use of accessory muscles and clearto auscultation bilaterally Auscultation: Negative for rales, rhonchi or wheezes Cardio regular rate, regular rhythm, no murmurs, no rub and no gallops GI normal to inspection, nondistended, normoactive bowel sounds, soft to palpation,non-tender and non-distended Extremity no clubbing, cyanosis or edema Skin no rashes or lesions noted General Skin Exam: no breakdown Neuro CN's II-XII intact bilaterally, no focal motor deficits and no sensory deficits noted Neuro Narrative: Patient is confused, she is not agitated Sensorium / Orientation: awake, alert and oriented to person Speech: speech normal Psych Psych Narrative: Patient is confused, she is not agitated Assessment & Plan Assessment/Plan (1) Dementia without behavioral disturbance: (2) Generalized weakness: PLAN: Plan 1. Acute on chronic debility-secondary to multiple medical problems including dementia and type 2 diabetes with neuropathy-PT and OT will continue to work with the patient, again it may be necessary for the patient to go to a half-way facility under intermediate care. #2 type 2 diabetes-patient is on sliding scale insulin, he is on metformin #3 essential hypertension-patient is not on losartan at this time, I will observe her blood pressure off this medication-she may not need this medication. #4 dementia without behavioral disturbances-complicates care, management, recovery, and prognosis Total clinical time spent by myself addressing the patient's medical issues, reviewing all of her data, and collaborating with patient's care team: 25 minutes Charges/Coding Visit Charges Inpatient E&M: 11289 [facility] Hosp L1 10/23/24 1423 Cosigner Signature (if applicable): CC: ~ Signed [facility]06-27-2025 Progress note Author Fitz Vázquez [facility] Note Date/Time October 22, 2024 7:47 pm [facility] Medical Records Department [address] [place] [address] Progress Note - Hospitalist 10/22/241943 MR#: [id number] Acct: [id number] Name: JUDI PITTMAN Rep #:[id number] : 1945 79 From: Fitz Vázquez DO PCP: Dr. Ruddy Cooper MD Status:AD M NEVAEH Location: [place] [address]604-1 Reason for Visit Reason for Visit: Diagnoses Unspecified dementia, unspecified severity, without behavioral disturbance, psychotic disturbance, mood disturbance, and anxiety (10/19/24) Weakness (10/19/24) Subjective Subjective Patient was seen and examined today, she states she wants to be discharged home,the daughter was contacted and she is the POA for the patient and she still wants the patient to go to an extended care facility. It may be necessary for the patient to go under intermediate care, family is aware of this. Objective Data Objective Data Vital Signs: Vital Signs Temp Pulse Resp BP Pulse Ox O2 Del Method 98.2 F 73 18 120/76 99 Room Air 10/22/24 14:57 10/22/24 14:57 10/22/24 14:57 10/22/24 14:57 10/22/24 14:57 10/22/24 14:57 Oxygen Delivery Method Room Air Weight: 64.7 kg Body Mass Index (BMI) 27.8 Intake & Output: Intake and Output for Last 24 Hours 10/20/24 10/21/24 10/22/24 23:59 23:59 23:59 Intake Total 1200 / 1200 1000 / 1000 Balance 1200 / 1200 1000 / 1000 Lab / Micro Data 10/20/24 04:41 10/20/24 04:41 Labs: Laboratory Results - last 24 hr 10/22/24 11:02: POC Glucose 145 H Physical Exam Narrative alert and no apparent distress Constitutional Narrative: Patient is confused but she is not agitated General Appearance: cooperative, well kempt and well developed Orientation / Consciousness: awake and oriented to person HEENT normocephalic, head/scalp atraumatic and moist oral mucous membranes Eyes PERRL, EOMs intact bilaterally and conjunctivae normal Neck supple, no JVD, thyroid normal and no carotid bruits General: trachea midline Resp normal respiratory effort, no retractions, no use of accessory muscles and clearto auscultation bilaterally Auscultation: Negative for rales, rhonchi or wheezes Cardio regular rate, regular rhythm, no murmurs, no rub and no gallops GI normal to inspection, nondistended, normoactive bowel sounds, soft to palpation,non-tender and non-distended Extremity no clubbing, cyanosis or edema Skin no rashes or lesions noted General Skin Exam: no breakdown Neuro CN's II-XII intact bilaterally, no focal motor deficits and no sensory deficits noted Neuro Narrative: Patient is confused, she is not agitated Sensorium / Orientation: awake, alert and oriented to person Speech: speech normal Psych Psych Narrative: Patient is confused, she is not agitated Assessment & Plan Assessment/Plan (1) Dementia without behavioral disturbance: (2) Generalized weakness: PLAN: Plan 1. Acute on chronic debility-secondary to multiple medical problems including dementia and type 2 diabetes with neuropathy-PT and OT will continue to work with the patient, again it may be necessary for the patient to go to a half-way facility under intermediate care. #2 type 2 diabetes-patient is on sliding scale insulin, he is on metformin #3 essential hypertension-patient is not on losartan at this time, I will observe her blood pressure off this medication-she may not need this medication. #4 dementia without behavioral disturbances-complicates care, management, recovery, and prognosis Total clinical time spent by myself addressing the patient's medical issues, reviewing all of her data, and collaborating with patient's care team: 35 minutes Charges/Coding Visit Charges Inpatient E&M: 72739 Subs Hosp L2 10/22/241946 <Electronically signed by Fitz Vázquez DO> Cosigner Signature (if applicable): CC: ~ Signed [facility] Work Phone: 1(405) 872-266006-27-2025 Progress note [facility] Medical Records Department [address] [place] [address] Progress Note - Hospitalist 10/22/241943 MR#: [id number] Acct: [id number] Name: JUDI PITTMAN Rep #:[id number] : 1945 79 From: Fitz Vázquez DO PCP: Dr. Ruddy Cooper MD Status:AD M [facility] Location: [place] [address]-1 Reason for Visit Reason for Visit: Diagnoses Unspecified dementia, unspecified severity, without behavioral disturbance, psychotic disturbance, mood disturbance, and anxiety (10/19/24) Weakness (10/19/24) Subjective Subjective Patient was seen and examined today, she states she wants to be discharged home,the daughter was contacted and she is the POA for the patient and she still wants the patient to go to an [facility]. It may be necessary for the patient to go under intermediate care, family is aware of this. Objective Data Objective Data Vital Signs: Vital Signs Temp Pulse Resp BP Pulse Ox O2 Del Method 98.2 F 73 18 120/76 99 Room Air 10/22/24 14:57 10/22/24 14:57 10/22/24 14:57 10/22/24 14:57 10/22/24 14:57 10/22/24 14:57 Oxygen Delivery Method Room Air Weight: 64.7 kg Body Mass Index (BMI) 27.8 Intake & Output: Intake and Output for Last 24 Hours 10/20/24 10/21/24 10/22/24 23:59 23:59 23:59 Intake Total 1200 / 1200 1000 / 1000 Balance 1200 / 1200 1000 / 1000 Lab / Micro Data 10/20/24 04:41 10/20/24 04:41 Labs: Laboratory Results - last 24 hr 10/22/24 11:02: POC Glucose 145 H Physical Exam Narrative alert and no apparent distress Constitutional Narrative: Patient is confused but she is not agitated General Appearance: cooperative, well kempt and well developed Orientation / Consciousness: awake and oriented to person HEENT normocephalic, head/scalp atraumatic and moist oral mucous membranes Eyes PERRL, EOMs intact bilaterally and conjunctivae normal Neck supple, no JVD, thyroid normal and no carotid bruits General: trachea midline Resp normal respiratory effort, no retractions, no use of accessory muscles and clearto auscultation bilaterally Auscultation: Negative for rales, rhonchi or wheezes Cardio regular rate, regular rhythm, no murmurs, no rub and no gallops GI normal to inspection, nondistended, normoactive bowel sounds, soft to palpation,non-tender and non-distended Extremity no clubbing, cyanosis or edema Skin no rashes or lesions noted General Skin Exam: no breakdown Neuro CN's II-XII intact bilaterally, no focal motor deficits and no sensory deficits noted Neuro Narrative: Patient is confused, she is not agitated Sensorium / Orientation: awake, alert and oriented to person Speech: speech normal Psych Psych Narrative: Patient is confused, she is not agitated Assessment & Plan Assessment/Plan (1) Dementia without behavioral disturbance: (2) Generalized weakness: PLAN: Plan 1. Acute on chronic debility-secondary to multiple medical problems including dementia and type 2 diabetes with neuropathy-PT and OT will continue to work with the patient, again it may be necessary for the patient to go to a half-way facility under intermediate care. #2 type 2 diabetes-patient is on sliding scale insulin, he is on metformin #3 essential hypertension-patient is not on losartan at this time, I will observe her blood pressure off this medication-she may not need this medication. #4 dementia without behavioral disturbances-complicates care, management, recovery, and prognosis Total clinical time spent by myself addressing the patient's medical issues, reviewing all of her data, and collaborating with patient's care team: 35 minutes Charges/Coding Visit Charges Inpatient E&M: 18329 Subs Hosp L2 10/22/241946 Cosigner Signature (if applicable): CC: ~ Signed [facility]06-27-2025 History of Present illness Narrative* Mirela DeaTHEA farias - 10/22/2024 1:46 PM EDT Value Based Social Work Progress Note Provider Action / FYI PCP Action none Date of Service: 10/22/2024 Patient identified by name/: Yes- via Telephone Referral Source: Referral Patient Outreach: Initial and Follow Up Mode of Outreach: Phone Call Response Time: Contact made Patient Needs: Transportation - Family transports patient Food Insecurity-Resource eligibility limitations SDOH screening Assessment: Payor Social supports Patient functional ability Cognitive status Existing community support Action Taken: Supportive listening Patient denies any needs at this time, reports she has enough food each month, is no longer drivingbecause her children prefer she doesn't. She denies any personal care needs and anticipates she will have home care when discharged home later today. Patient states she cannot talk, as she is gettingready to return home. Advised I can call her next week once home. Is Patient ready for discharge? No Follow-up Plan [next steps] Medium [15-30 days] Narrative: Follow up call to patient to further discuss any need for food resources, as was prior indicated. Patient reports she is currently in the hospital, but is being d/c home today shortly and that she cannot talk on the phone. She does however deny food insecurity, states she does her own shopping once transported there. She is no longer driving, as her children have decided. She reports she anticipates home care when discharged home. She was in a hurry to get off the call. I have offered to call her back next week to which she is agreeable. Interventions: Advocacy Assessment Follow up, will again call patient next week once home. THEA Meier October 22, 2024 1:50 PM [facility] Progress note Author Fitz Vázquez [facility] Note Date/Time October 21, 2024 5:12 pm [facility] Medical Records Department [address] [place] [address] Progress Note - Hospitalist 10/21/24 1711 MR#: [id number] Acct: [id number] Name: JUDI PITTMAN Rep #:[id number] : 1945 79 From: Fitz Vázquez DO PCP: Dr. Ruddy Cooper MD Status:[facility] Location: [place] [address] Reason for Visit Reason for Visit: Diagnoses Weakness (10/19/24) Subjective Subjective Patient was seen and examined today, she does not appear to be agitated. Objective Data Objective Data Vital Signs: Vital Signs Temp Pulse Resp BP Pulse Ox O2 Del Method 98.8 F 82 16 142/96 H 96 Room Air 10/21/24 14:22 10/21/24 14:22 10/21/24 14:22 10/21/24 14:22 10/21/24 14:22 10/21/24 14:22 Oxygen Delivery Method Room Air Weight: 64.7 kg Body Mass Index (BMI) 27.8 Intake & Output: Intake and Output for Last 24 Hours 10/19/24 10/20/24 10/21/24 23:59 23:59 23:59 Intake Total 500 / 500 1200 / 1200 1000 / 1000 Balance 500 / 500 1200 / 1200 1000 / 1000 Lab / Micro Data 10/20/24 04:41 10/20/24 04:41 Labs: Laboratory Results - last 24 hr 10/20/24 22:14: POC Glucose 136 H 10/21/24 06:04: POC Glucose 136 H 10/21/24 11:13: POC Glucose 140 H Physical Exam Narrative alert and no apparent distress Constitutional Narrative: Patient is confused but she is not agitated General Appearance: cooperative, well kempt and well developed Orientation / Consciousness: awake and oriented to person HEENT normocephalic, head/scalp atraumatic and moist oral mucous membranes Eyes PERRL, EOMs intact bilaterally and conjunctivae normal Neck supple, no JVD, thyroid normal and no carotid bruits General: trachea midline Resp normal respiratory effort, no retractions, no use of accessory muscles and clearto auscultation bilaterally Auscultation: Negative for rales, rhonchi or wheezes Cardio regular rate, regular rhythm, no murmurs, no rub and no gallops GI normal to inspection, nondistended, normoactive bowel sounds, soft to palpation,non-tender and non-distended Extremity no clubbing, cyanosis or edema Skin no rashes or lesions noted General Skin Exam: no breakdown Neuro CN's II-XII intact bilaterally, no focal motor deficits and no sensory deficits noted Neuro Narrative: Patient is confused, she is not agitated Sensorium / Orientation: awake, alert and oriented to person Speech: speech normal Psych Psych Narrative: Patient is confused, she is not agitated Assessment & Plan Assessment/Plan (1) Dementia without behavioral disturbance: (2) Generalized weakness: PLAN: Plan 1. Acute on chronic debility-secondary to multiple medical problems including dementia and type 2 diabetes with neuropathy-PT and OT will continue to work with the patient, she will need placement in a half-way facility. I talked at length with the patient's daughter by phone deja-she is in [place]-I feel that the patient does have dementia. Patient's CODE STATUS will be a DNRCC arrest no intubation. The daughter who is her POA and I came to the agreement that it would not be in the patient's best interest to start her on medication for Alzheimer's disease. Patient also had an adverse effect from being on Seroquel previously-she became very lethargic on this medication. #2 type 2 diabetes-patient is on sliding scale insulin, I placed her back on metformin #3 essential hypertension-patient is not on losartan at this time, I will observe her blood pressure off this medication-she may not need this medication. #4 dementia without behavioral disturbances-complicates care, management, recovery, and prognosis Total clinical time spent by myself addressing the patient's medical issues, reviewing all of her data, and collaborating with patient's care team: 35 minutes Charges/Coding Visit Charges Inpatient E&M: 41321 Subs Hosp L2 10/21/241711 <Electronically signed by Fitz Vázquez DO> Cosigner Signature (if applicable): CC: ~ Signed [facility] Work Phone: 1(224) 102-537106-26-2025 Progress note [facility] Medical Records Department [address] [place] [id number] Progress Note - Hospitalist 10/21/241710 MR#: [id number] Acct: [id number] Name: JUDI PITTMAN Rep #:[id number] : 1945 79 From: Fitz Vázquez DO PCP: Dr. Ruddy Cooper MD Status:[facility] Location: [place] [id number] Reason for Visit Reason for Visit: Diagnoses Weakness (10/19/24) Subjective Subjective Patient was seen and examined today, she does not appear to be agitated. Objective Data Objective Data Vital Signs: Vital Signs Temp Pulse Resp BP Pulse Ox O2 Del Method 98.8 F 82 16 142/96 H 96 Room Air 10/21/24 14:22 10/21/24 14:22 10/21/24 14:22 10/21/24 14:22 10/21/24 14:22 10/21/24 14:22 Oxygen Delivery Method Room Air Weight: 64.7 kg Body Mass Index (BMI) 27.8 Intake & Output: Intake and Output for Last 24 Hours 10/19/24 10/20/24 10/21/24 23:59 23:59 23:59 Intake Total 500 / 500 1200 / 1200 1000 / 1000 Balance 500 / 500 1200 / 1200 1000 / 1000 Lab / Micro Data 10/20/24 04:41 10/20/24 04:41 Labs: Laboratory Results - last 24 hr 10/20/24 22:14: POC Glucose 136 H 10/21/24 06:04: POC Glucose 136 H 10/21/24 11:13: POC Glucose 140 H Physical Exam Narrative alert and no apparent distress Constitutional Narrative: Patient is confused but she is not agitated General Appearance: cooperative, well kempt and well developed Orientation / Consciousness: awake and oriented to person HEENT normocephalic, head/scalp atraumatic and moist oral mucous membranes Eyes PERRL, EOMs intact bilaterally and conjunctivae normal Neck supple, no JVD, thyroid normal and no carotid bruits General: trachea midline Resp normal respiratory effort, no retractions, no use of accessory muscles and clearto auscultation bilaterally Auscultation: Negative for rales, rhonchi or wheezes Cardio regular rate, regular rhythm, no murmurs, no rub and no gallops GI normal to inspection, nondistended, normoactive bowel sounds, soft to palpation,non-tender and non-distended Extremity no clubbing, cyanosis or edema Skin no rashes or lesions noted General Skin Exam: no breakdown Neuro CN's II-XII intact bilaterally, no focal motor deficits and no sensory deficits noted Neuro Narrative: Patient is confused, she is not agitated Sensorium / Orientation: awake, alert and oriented to person Speech: speech normal Psych Psych Narrative: Patient is confused, she is not agitated Assessment & Plan Assessment/Plan (1) Dementia without behavioral disturbance: (2) Generalized weakness: PLAN: Plan 1. Acute on chronic debility-secondary to multiple medical problems including dementia and type 2 diabetes with neuropathy-PT and OT will continue to work with the patient, she will need placement evelia half-way facility. I talked at length with the patient's daughter by phone deja-she is in [place]-I feel that the patient does have dementia. Patient's CODE STATUS will be a DNRCC arrest no intubation. The daughter who is her POA and I came to the agreement that it would not be in the patient's best interest to start her on medication for Alzheimer's disease. Patient also had an adverse effect from being on Seroquel previously-she became very lethargic on this medication. #2 type 2 diabetes-patient is on sliding scale insulin, I placed her back on metformin #3 essential hypertension-patient is not on losartan at this time, I will observe her blood pressure off this medication-she may not need this medication. #4 dementia without behavioral disturbances-complicates care, management, recovery, and prognosis Total clinical time spent by myself addressing the patient's medical issues, reviewing all of her data, and collaborating with patient's care team: 35 minutes Charges/Coding Visit Charges Inpatient E&M: 29894 Subs Hosp L2 10/21/24 1712 Cosigner Signature (if applicable): CC: ~ Signed [facility]06-26-2025 Discharge summary Author Mikel Bonilla [facility] Note Date/Time October 21, 2024 7:20 am [facility] Medical Records Department [address] [place] [address] Emergency Department Summary 10/19/24 MR#: [id number] Acct: [id number] Name: JUDI PITTMAN Rep #:[id number] : 1945 79 From: Mikel Perera PCP: Dr. Ruddy Cooper MD Status[facility] <Dr. Mikel Bonilla DO - Last Filed: 10/21/24 07:20> History of Present Illness Chief Complaint: Fall Informant: patient and family Narrative Narrative: Patient brought in by EMS from home. Daughter, Sade called for a well check who is in [place]. She is currently on the phone during my evaluation. Patientlives alone intermittently ambulates with cane as a walker if needed. Daughters1 in [place] 1 in the [facility]. Patient reports she was on the ground had a hard time getting up. She states she is only on the ground for an hour. Daughter reports she tried calling her since yesterday evening nobody picked up,she called EMS for well check. Reported she was found on the ground. Patient is more confused. Patient denies any pain. She denies cough vomiting diarrhea or urinary symptoms. However daughter reports that her recent similar event with confusion and found to have a UTI. When she was discharged unclear if she finished her antibiotics. She confirms she is not acting her normal self. During discussion patient discussing events with Dameon Hogue. Prior similar symptoms: Yes PFSH <Dr. Mikel Bonilla DO - Last Filed: 10/21/24 07:20> [facility] Medical History Orthostatic hypotension Hoarseness History of [...] substance use type: does not use ROS <Dr. Mikel Bonilla DO - Last Filed: 10/21/24 07:20> ROS ED Constitutional Constitutional ED: Denies chills, fever(s) or sweats Cardiovascular Cardiovascular: Denies chest pain Respiratory/Chest Respiratory/Chest: Denies cough Gastrointestinal Gastrointestinal: Denies abdominal pain, diarrhea, nausea or vomiting Genitourinary Genitourinary ED: Denies dysuria, hematuria or urinary frequency Musculoskeletal Musculoskeletal: Denies back pain, extremity pain or neck pain Integumentary Denies rash or wounds Neurologic Neurologic: Reports weakness; Denies headache(s) or paresthesias EXAM <Dr. Mikel Bonilla DO - Last Filed: 10/21/24 07:20> Physical Exam Const Vital Signs: 10/19/24 12:20 10/19/24 12:28 10/19/24 [...] Air Room Air Room Air 10/19/24 17:00 10/19/24 18:00 10/19/24 19:00 Temperature 98.7 F 97.8 F Temperature Source Oral Oral Pulse Rate 79 88 91 Respiratory Rate 24 H 18 18 Respiratory Effort Blood Pressure 162/80 H 153/77 H 143/125 H Blood Pressure Mean 107 102 131 Pulse Ox 100 99 100 Oxygen Delivery Method Room Air Room Air Positive well nourished and well developed General Appearance ED: well developed and NAD HEENT Reports moist mucous membranes normocephalic and atraumatic Eyes General Eye ED: Yes normal appearance of both eyes Neck full ROM Chest Wall Chest: Negative for tenderness Resp normal respiratory effort and normal air movement Effort and Inspection: symmetric chest movement; Negative for respiratory distress Cardio regular rate, regular rhythm and no murmurs Peripheral Pulses: pulses 2+ throughout GI normal to inspection, nondistended, normoactive bowel sounds and non-tender Palpation: Negative for guarding or rebound tenderness present Extremity normal to inspection General Extremety ED: Negative for edema or tenderness General Extremity: Negative for edema Neuro oriented x3 and no sensory deficits noted Neuro Narrative: Patient was alert person place and year however she was slow to respond. Sensorium / Orientation: awake and alert Skin no rashes or lesions noted and no wounds <Dr. Rachele Brian, DO - Last Filed: 10/19/24 20:35> Physical Exam Const Vital Signs: 10/19/24 12:20 10/19/24 12:28 10/19/24 [...] Air Room Air Room Air 10/19/24 17:00 10/19/24 18:00 10/19/24 19:00 Temperature 98.7 F 97.8 F Temperature Source Oral Oral Pulse Rate 79 88 91 Respiratory Rate 24 H 18 18 Respiratory Effort Blood Pressure 162/80 H 153/77 H 143/125 H Blood Pressure Mean 107 102 131 Pulse Ox 100 99 100 Oxygen Delivery Method Room Air Room Air MDM <Dr. Mikel Bonilla, DO - Last Filed: 10/21/24 07:20> MDM MDM Narrative Medical decision making narrative: Interventions / MDM: Differential diagnosis: Encephalopathy, fall, weakness Diagnosis considered but do not suspect: Intracranial hemorrhage however CT negative. Pneumonia however x-ray negative. UTI however urine negative. My EKG interpretation: Sinus rhythm of 83, no ST changes. First-degree AV block. Imaging independently reviewed and interpreted by myself: CT brain: No acute process. Chest x-ray no acute process. External documents reviewed: Admission October 10 to for UTI encephalopathy. Test considered but not ordered:N/A ED course: Vital stable nontoxic no signs of injury. There seem to be confusionon exam with recent UTI. Laboratory studies chest x-ray CT brain and urine ordered for evaluation. Patient CT brain negative chest x-ray negative. Labs normal white count normal electrolytes. Urine macrocytic returned negative for leukocytes and nitrites, pending micro. CPK pending. Vitals remained stable. Patient signed out to oncoming physician for disposition plans. Re-evaluation: stable Disposition discussed with patient/family/significant other: Patient Case discussed with consulting clinician: N/A This note was generated with [employer] dictation software. It may contain incorrectwords, spelling, and punctuation that were not noted in checking the note beforesigning. Lab Data Labs: Laboratory Results - last 24 hr 10/19/24 10/19/24 13:40 14:15 WBC 9.5 RBC 4.43 Hgb 13.3 Hct 40.6 MCV 91.6 MCH 30.0 MCHC 32.8 RDW Std Deviation 41.1 RDW Coeff of Meño 12.2 Plt Count 330 MPV 8.4 Immature Gran % (Auto) 0.300 Neut % (Auto) 70.1 H Lymph % (Auto) 18.5 L Navarro % (Auto) 8.1 Eos % (Auto) 2.5 Baso % (Auto) 0.5 Absolute Neuts (auto) 6.7 Absolute Lymphs (auto) 1.76 Nucleated RBC % 0 Sodium 140 Potassium 4.3 Chloride 105 Carbon Dioxide 23.7 Anion Gap 12 BUN 24 H Creatinine 0.97 Estim Creat Clear Calc 43.58 L Est GFR (MDRD) Non-Af 60 BUN/Creatinine Ratio 24.6 H Glucose 109 H Calcium 9.7 Total Creatine Kinase 91 Urine Color Yellow Urine Clarity Cloudy Urine pH 7.0 Ur Specific [place] 1.015 Urine Protein 15 H Urine Glucose (UA) Normal Urine Ketones 5 H Urine Occult Blood Negative Urine Nitrite Negative Urine Bilirubin Negative Urine Urobilinogen Normal Ur Leukocyte Esterase Negative Urine RBC 0-5 SEEN Urine WBC 0-5 SEEN Ur Squamous Epith Cells 0 SEEN Amorphous Sediment 2+ Urine Bacteria 0 SEEN Urine Mucus 0 SEEN Radiography Diagnostic Testing: Clinical Impression(s) from Imaging Studies Chest X-Ray 10/19/24 13:30 IMPRESSION: No acute abnormality is seen. Calcified right-sided pleural plaques. Reading Location: [id number] Brain CT 10/19/24 13:50 IMPRESSION: NO SIGNIFICANT CHANGE SINCE THE PRIOR EXAM no acute abnormality is seen. Reading Location: [facility] Treatment and Re-Evaluation :: Snehal?patient signed out to me pending CPK. This is normal. Urinalysis is notconsistent with infection. Patient will be admitted for debility and fall. Case discussed with hospitalist, Dr. Awan. <Dr. Rachele Brian, DO - Last Filed: 10/19/24 20:35> [facility] Lab Data Labs: Laboratory Results - last 24 hr 10/19/24 10/19/24 13:40 14:15 WBC 9.5 RBC 4.43 Hgb 13.3 Hct 40.6 MCV 91.6 MCH 30.0 MCHC 32.8 RDW Std Deviation 41.1 RDW Coeff of Meño 12.2 Plt Count 330 MPV 8.4 Immature Gran % (Auto) 0.300 Neut % (Auto) 70.1 H Lymph % (Auto) 18.5 L Navarro % (Auto) 8.1 Eos % (Auto) 2.5 Baso % (Auto) 0.5 Absolute Neuts (auto) 6.7 Absolute Lymphs (auto) 1.76 Nucleated RBC % 0 Sodium 140 Potassium 4.3 Chloride 105 Carbon Dioxide 23.7 Anion Gap 12 BUN 24 H Creatinine 0.97 Estim Creat Clear Calc 43.58 L Est GFR (MDRD) Non-Af 60 BUN/Creatinine Ratio 24.6 H Glucose 109 H Calcium 9.7 Total Creatine Kinase 91 Urine Color Yellow Urine Clarity Cloudy Urine pH 7.0 Ur Specific [place] 1.015 Urine Protein 15 H Urine Glucose (UA) Normal Urine Ketones 5 H Urine Occult Blood Negative Urine Nitrite Negative Urine Bilirubin Negative Urine Urobilinogen Normal Ur Leukocyte Esterase Negative Urine RBC 0-5 SEEN Urine WBC 0-5 SEEN Ur Squamous Epith Cells 0 SEEN Amorphous Sediment 2+ Urine Bacteria 0 SEEN Urine Mucus 0 SEEN Radiography Diagnostic Testing: Clinical Impression(s) from Imaging Studies Chest X-Ray 10/19/24 13:30 IMPRESSION: No acute abnormality is seen. Calcified right-sided pleural plaques. Reading Location: [facility] Brain CT 10/19/24 13:50 IMPRESSION: NO SIGNIFICANT CHANGE SINCE THE PRIOR EXAM no acute abnormality is seen. Reading Location: [facility] Treatment [facility] Re-Evaluation :: Willie?patient signed out to me pending CPK. This is normal. Urinalysis is not consistent with infection. Patient will be admitted for debility and fall. Case discussed with hospitalist, Dr. Awan. Discharge Plan Dx/Rx/DC Orders Clinical Impression: Generalized weakness, Confusion, Fall Disposition Disposition: Acute Care Hospital [facility] Discharge Date/Time: 10/19/24 20:36 What to do if you have Problems For any increased pain, shortness of breath, bleeding, nausea or vomiting, chestpain, or any unexpected problems, contact your Primary Care Provider. Call [facility] ([phone]) or report to the closest Emergency Room. Call 911 if necessary. 10/21/24 0720 <Electronically signed by Mikel Perera> Cosigner Signature (if applicable): 10/19/242034 <Electronically signed by Rachele Brian DO> CC: Dr. Ruddy Cooper MD ~ Signed [facility] Work Phone: 1(512) 513-628006-26-2025 Discharge summary [facility] Medical Records Department [address] [place] [address] Emergency Department Summary 10/19/24 MR#: [id number] Acct: [id number] Name: JUDI PITTMAN Rep #:[id number] : 1945 79 From: Mikel Perera PCP: Dr. Ruddy Cooper MD Status:AD M [facility] Location: [place] [address] HPI History of Present Illness Chief Complaint: Fall Informant: patient and family Narrative Narrative: Patient brought in by EMS from home. Daughter, Sade called for a well check who is in [place]. She is currently on the phone during my evaluation. Patientlives alone intermittently ambulates with cane as a walker if needed. Daughters1 in [place] 1 in the [facility]. Patient reports she was on the ground had a hard time getting up. She states she is only on the ground for an hour. Daughter reports she tried calling her since yesterday evening nobody picked up,she called EMS for well check. Reported she was found on the ground. Patient is more confused. Patient denies any pain. She denies cough vomiting diarrhea or urinary symptoms. However daughter reports that her recent similar event with confusion and found to have a UTI. When she was discharged unclear if she finished her antibiotics.She confirms she is not acting her normal self. During discussion patient discussing events with Dameon Hogue. Prior similar symptoms: Yes PFSH PFSH Medical History Orthostatic hypotension [...] Constitutional Constitutional ED: Denies chills, fever(s) or sweats Cardiovascular Cardiovascular: Denies chest pain Respiratory/Chest Respiratory/Chest: Denies cough Gastrointestinal Gastrointestinal: Denies abdominal pain, diarrhea, nausea or vomiting Genitourinary Genitourinary ED: Denies dysuria, hematuria or urinary frequency Musculoskeletal Musculoskeletal: Denies back pain, extremity pain or neck pain Integumentary Denies rash or wounds Neurologic Neurologic: Reports weakness; Denies headache(s) or paresthesias EXAM Physical Exam Const Vital Signs: 10/19/24 12:20 10/19/24 12:28 10/19/24 [...] Air Room Air Room Air 10/19/24 17:00 10/19/24 18:00 10/19/24 19:00 Temperature 98.7 F 97.8 F Temperature Source Oral Oral Pulse Rate 79 88 91 Respiratory Rate 24 H 18 18 Respiratory Effort Blood Pressure 162/80 H 153/77 H 143/125 H Blood Pressure Mean 107 102 131 Pulse Ox 100 99 100 Oxygen Delivery Method Room Air Room Air Positive well nourished and well developed General Appearance ED: well developed and NAD HEENT Reports moist mucous membranes normocephalic and atraumatic Eyes General Eye ED: Yes normal appearance of both eyes Neck full ROM Chest Wall Chest: Negative for tenderness Resp normal respiratory effort and normal air movement Effort and Inspection: symmetric chest movement; Negative for respiratory distress Cardio regular rate, regular rhythm and no murmurs Peripheral Pulses: pulses 2+ throughout GI normal to inspection, nondistended, normoactive bowel sounds and non-tender Palpation: Negative for guarding or rebound tenderness present Extremity normal to inspection General Extremety ED: Negative for edema or tenderness General Extremity: Negative for edema Neuro oriented x3 and no sensory deficits noted Neuro Narrative: Patient was alert person place and year however she was slow to respond. Sensorium / Orientation: awake and alert Skin no rashes or lesions noted and no wounds Physical Exam Const Vital Signs: 10/19/24 12:20 10/19/24 12:28 10/19/24 [...] Air Room Air Room Air 10/19/24 17:00 10/19/24 18:00 10/19/24 19:00 Temperature 98.7 F 97.8 F Temperature Source Oral Oral Pulse Rate 79 88 91 Respiratory Rate 24 H 18 18 Respiratory Effort Blood Pressure 162/80 H 153/77 H 143/125 H Blood Pressure Mean 107 102 131 Pulse Ox 100 99 100 Oxygen Delivery Method Room Air Room Air MDM MDM MDM Narrative Medical decision making narrative: Interventions / MDM: Differential diagnosis: Encephalopathy, fall, weakness Diagnosis considered but do not suspect: Intracranial hemorrhage however CT negative. Pneumonia however x-ray negative. UTI however urine negative. My EKG interpretation: Sinus rhythm of 83, no ST changes. First-degree AV block. Imaging independently reviewed and interpreted by myself: CT brain: No acute process. Chest x-ray no acute process. External documents reviewed: Admission October 10 for UTI encephalopathy. Test considered but not ordered:N/A ED course: Vital stable nontoxic no signs of injury. There seem to be confusionon exam with recent UTI. Laboratory studies chest x-ray CT brain and urine ordered for evaluation. Patient CT brain negative chest x-ray negative. Labs normal white count normal electrolytes. Urine macrocytic returned negative for leukocytes and nitrites, pending micro. CPK pending. Vitals remained stable. Patient signed out to oncoming physician for disposition plans. Re-evaluation: stable Disposition discussed with patient/family/significant other: Patient Case discussed with consulting clinician: N/A This note was generated with [employer] dictation software. It may contain incorrectwords, spelling, and punctuation that were not noted in checking the note beforesigning. Lab Data Labs: Laboratory Results - last 24 hr 10/19/24 10/19/24 13:40 14:15 WBC 9.5 RBC 4.43 Hgb 13.3 Hct 40.6 MCV 91.6 MCH 30.0 MCHC 32.8 RDW Std Deviation 41.1 RDW Coeff of Meño 12.2 Plt Count 330 MPV 8.4 Immature Gran % (Auto) 0.300 Neut % (Auto) 70.1 H Lymph % (Auto) 18.5 L Navarro % (Auto) 8.1 Eos % (Auto) 2.5 Baso % (Auto) 0.5 Absolute Neuts (auto) 6.7 Absolute Lymphs (auto) 1.76 Nucleated RBC % 0 Sodium 140 Potassium 4.3 Chloride 105 Carbon Dioxide 23.7 Anion Gap 12 BUN 24 H Creatinine 0.97 Estim Creat Clear Calc 43.58 L Est GFR (MDRD) Non-Af 60 BUN/Creatinine Ratio 24.6 H Glucose 109 H Calcium 9.7 Total Creatine Kinase 91 Urine Color Yellow Urine Clarity Cloudy Urine pH 7.0 Ur Specific [place] 1.015 Urine Protein 15 H Urine Glucose (UA) Normal Urine Ketones 5 H Urine Occult Blood Negative Urine Nitrite Negative Urine Bilirubin Negative Urine Urobilinogen Normal Ur Leukocyte Esterase Negative Urine RBC 0-5 SEEN Urine WBC 0-5 SEEN Ur Squamous Epith Cells 0 SEEN Amorphous Sediment 2+ Urine Bacteria 0 SEEN Urine Mucus 0 SEEN Radiography Diagnostic Testing: Clinical Impression(s) from Imaging Studies Chest X-Ray 10/19/24 13:30 IMPRESSION: No acute abnormality is seen. Calcified right-sided pleural plaques. Reading Location: [id number] Brain CT 10/19/24 13:50 IMPRESSION: NO SIGNIFICANT CHANGE SINCE THE PRIOR EXAM no acute abnormality is seen. Reading Location: [id number] Treatment and Re-Evaluation :: Mauriciowilliam?patient signed out to me pending CPK. This is normal. Urinalysis is notconsistent with infection. Patient will be admitted for debility and fall. Case discussed with hospitalist, Dr. Awan. [facility] Lab Data Labs: Laboratory Results - last 24 hr 10/19/24 10/19/24 13:40 14:15 WBC 9.5 RBC 4.43 Hgb 13.3 Hct 40.6 MCV 91.6 MCH 30.0 MCHC 32.8 RDW Std Deviation 41.1 RDW Coeff of Meño 12.2 Plt Count 330 MPV 8.4 Immature Gran % (Auto) 0.300 Neut % (Auto) 70.1 H Lymph % (Auto) 18.5 L Navarro % (Auto) 8.1 Eos % (Auto) 2.5 Baso % (Auto) 0.5 Absolute Neuts (auto) 6.7 Absolute Lymphs (auto) 1.76 Nucleated RBC % 0 Sodium 140 Potassium 4.3 Chloride 105 Carbon Dioxide 23.7 Anion Gap 12 BUN 24 H Creatinine 0.97 Estim Creat Clear Calc 43.58 L Est GFR (MDRD) Non-Af 60 BUN/Creatinine Ratio 24.6 H Glucose 109 H Calcium 9.7 Total Creatine Kinase 91 Urine Color Yellow Urine Clarity Cloudy Urine pH 7.0 Ur Specific [place] 1.015 Urine Protein 15 H Urine Glucose (UA) Normal Urine Ketones 5 H Urine Occult Blood Negative Urine Nitrite Negative Urine Bilirubin Negative Urine Urobilinogen Normal Ur Leukocyte Esterase Negative Urine RBC 0-5 SEEN Urine WBC 0-5 SEEN Ur Squamous Epith Cells 0 SEEN Amorphous Sediment 2+ Urine Bacteria 0 SEEN Urine Mucus 0 SEEN Radiography Diagnostic Testing: Clinical Impression(s) from Imaging Studies Chest X-Ray 10/19/24 13:30 IMPRESSION: No acute abnormality is seen. Calcified right-sided pleural plaques. Reading Location: [id number] Brain CT 10/19/24 13:50 IMPRESSION: NO SIGNIFICANT CHANGE SINCE THE PRIOR EXAM no acute abnormality is seen. Reading Location: [facility] Treatment and Re-Evaluation :: Willie?patient signed out to me pending CPK. This is normal. Urinalysis is not consistent with infection. Patient will be admitted for debility and fall. Case discussed with hospitalist, Dr. Awan. Discharge Plan Dx/Rx/DC Orders Clinical Impression: Generalized weakness, Confusion, Fall Disposition Disposition: Acute Care Hospital [facility] Discharge Date/Time: 10/19/24 20:36 What to do if you have Problems For any increased pain, shortness of breath, bleeding, nausea or vomiting, chestpain, or any unexpected problems, contact your Primary Care Provider. Call [facility] ([phone]) or report tothe closest Emergency Room. Call 911 if necessary. 10/21/24719 Cosigner Signature (if applicable): 10/19/242034 CC: Dr. Ruddy Cooper MD ~ Signed [facility]06-25-2025 Progress note Author Fitz Vázquez [facility] Note Date/Time October 20, 2024 6:11 pm [facility] Medical Records Department [address] [place] [address] Progress Note - Hospitalist 10/20/24 3833 MR#: [id number] Acct: [id number] Name: JUDI PITTMAN Rep #:[id number] : 1945 79 From: Fitz Vázquez DO PCP: Dr. Ruddy Cooper MD Status:TERRELL HERRING Location: [facility] [place] [id number] Reason for Visit Reason for Visit: Diagnoses Weakness (10/19/24) Subjective Subjective Patient was seen and examined today, the nurses stated that she was mildly agitated today, when I saw the patient she did not appear agitated however. I talked to the daughter at length on the phone I told the daughter it was my family and that the patient did have dementia. The daughter requested that she be given her nortriptyline at night for sleep-I told her I did not have a problem with this. She takes 150 mg at bedtime. Objective Data Objective Data Vital Signs: Vital Signs Temp Pulse Resp BP Pulse Ox O2 Del Method 98.9 F 80 14 122/73 H 98 Room Air 10/20/24 15:15 10/20/24 15:15 10/20/24 15:15 10/20/24 15:15 10/20/24 15:15 10/20/24 15:15 Oxygen Delivery Method Room Air Weight: 64.7 kg Body Mass Index (BMI) 27.8 Intake & Output: Intake and Output for Last 24 Hours 10/18/24 10/19/24 10/20/24 23:59 23:59 23:59 Intake Total 500 / 500 1000 / 1000 Balance 500 / 500 1000 / 1000 Lab / Micro Data 10/20/24 04:41 10/20/24 04:41 Labs: Laboratory Results - last 24 hr 10/19/24 13:40: Vitamin B12 725 10/19/24 14:15: Urine Opiates Screen NEGATIVE, U Buprenorphine Qual NEGATIVE, UrOxycodone Screen NEGATIVE, Urine Methadone Screen NEGATIVE, Urine Fentanyl Screen NEGATIVE, Ur Barbiturates Screen NEGATIVE, Ur Phencyclidine Scrn NEGATIVE, Ur Amphetamines Screen NEGATIVE, U Benzodiazepines Scrn NEGATIVE, Urine Cocaine Screen NEGATIVE, U Cannabinoids Screen NEGATIVE 10/19/24 22:17: Ammonia < 10.0 L 10/19/24 22:58: POC Glucose 85 10/20/24 04:41: WBC 6.0, RBC 3.89 L, Hgb 11.6 L, Hct 36.3 L, MCV 93.3, MCH 29.8,MCHC 32.0, RDW Std Deviation 42.8, RDW Coeff of Meño 12.5, Plt Count 317, MPV 8.4, Immature Gran % (Auto) 0.500, Neut % (Auto) 57.4, Lymph % (Auto) 26.6, Navarro% (Auto) 8.5, Eos % (Auto) 6.2 H, Baso % (Auto) 0.8, Absolute Neuts (auto) 3.4, Absolute Lymphs (auto) 1.59, Nucleated RBC % 0, Sodium 140, Potassium 4.4, Chloride 107, Carbon Dioxide 22.1, Anion Gap 11, BUN 20 H, Creatinine 0.93, Estim Creat Clear Calc 41.85 L, Est GFR (MDRD) Non-Af 63, BUN/Creatinine Ratio 21.0 H, Glucose 186 H, Calcium 8.7, Total Bilirubin 0.27, AST 24, ALT 17, Alkaline Phosphatase 40, Total Protein 5.7 L, Albumin 3.3 L, Globulin 2.4, Albumin/Globulin Ratio 1.4, TSH 2.300 10/20/24 06:23: POC Glucose 157 H 10/20/24 12:37: POC Glucose 122 H 10/20/24 16:37: POC Glucose 119 H Physical Exam Const alert and no apparent distress Constitutional Narrative: Patient is confused but she is not agitated General Appearance: cooperative, well kempt and well developed Orientation / Consciousness: awake and oriented to person HEENT normocephalic, head/scalp atraumatic and moist oral mucous membranes Eyes PERRL, EOMs intact bilaterally and conjunctivae normal Neck supple, no JVD, thyroid normal and no carotid bruits General: trachea midline Resp normal respiratory effort, no retractions, no use of accessory muscles and clearto auscultation bilaterally Auscultation: Negative for rales, rhonchi or wheezes Cardio regular rate, regular rhythm, no murmurs, no rub and no gallops GI normal to inspection, nondistended, normoactive bowel sounds, soft to palpation,non-tender and non-distended Extremity no clubbing, cyanosis or edema Skin no rashes or lesions noted General Skin Exam: no breakdown Neuro CN's II-XII intact bilaterally, no focal motor deficits and no sensory deficits noted Neuro Narrative: Patient is confused, she is not agitated Sensorium / Orientation: awake, alert and oriented to person Speech: speech normal Psych Psych Narrative: Patient is confused, she is not agitated Assessment & Plan Assessment/Plan (1) Generalized weakness: PLAN: Plan 1. Acute on chronic debility-secondary to multiple medical problems including dementia and type 2 diabetes with neuropathy-PT and OT will continue to work with the patient, she will need placement in a half-way facility. I talked at length with the patient's daughter by phone deja-she is in [place]-I feel that the patient does have dementia. Patient's CODE STATUS will be a DNRCC arrest no intubation. The daughter who is her POA and I came to the agreement that it would not be in the patient's best interest to start her on medication for Alzheimer's disease. Patient also had an adverse effect from being on Seroquel previously-she became very lethargic on this medication. #2 type 2 diabetes-patient is on sliding scale insulin, I placed her back on metformin #3 essential hypertension-patient is not on losartan at this time, I will observe her blood pressure off this medication-she may not need this medication. Total clinical time spent by myself addressing the patient's medical issues, reviewing all of her data, and collaborating with patient's care team: 35 minutes Charges/Coding Visit Charges Inpatient E&M: 06975 Subs Hosp L2 10/20/24 1811 <Electronically signed by Fitz Vázquez DO> Cosigner Signature (if applicable): CC: ~ Signed [facility] Work Phone: 1(311) 412-657606-25-2025 Progress note [facility] Medical Records Department [address] [place] [address] Progress Note - Hospitalist 10/20/24 1754 MR#: [id number] Acct: [id number] Name: JUDI PITTMAN Rep #:[id number] : 1945 79 From: Fitz Vázquez DO PCP: Dr. Ruddy Cooper MD Status:TERRELL HERRING Location: [place] [id number] Reason for Visit Reason for Visit: Diagnoses Weakness (10/19/24) Subjective Subjective Patient was seen and examined today, the nurses stated that she was mildly agitated today, when I saw the patient she did not appear agitated however. I talked to the daughter at length on the phone I told the daughter it was my family and that the patient did have dementia. The daughter requested that she be given her nortriptyline at night for sleep-I told her I did not have a problem with this. She takes 150 mg at bedtime. Objective Data Objective Data Vital Signs: Vital Signs Temp Pulse Resp BP Pulse Ox O2 Del Method 98.9 F 80 14 122/73 H 98 Room Air 10/20/24 15:15 10/20/24 15:15 10/20/24 15:15 10/20/24 15:15 10/20/24 15:15 10/20/24 15:15 Oxygen Delivery Method Room Air Weight: 64.7 kg Body Mass Index (BMI) 27.8 Intake & Output: Intake and Output for Last 24 Hours 10/18/24 10/19/24 10/20/24 23:59 23:59 23:59 Intake Total 500 / 500 1000 / 1000 Balance 500 / 500 1000 / 1000 Lab / Micro Data 10/20/24 04:41 10/20/24 04:41 Labs: Laboratory Results - last 24 hr 10/19/24 13:40: Vitamin B12 725 10/19/24 14:15: Urine Opiates Screen NEGATIVE, U Buprenorphine Qual NEGATIVE, UrOxycodone Screen NEGATIVE, Urine Methadone Screen NEGATIVE, Urine Fentanyl Screen NEGATIVE, Ur Barbiturates Screen NEGATIVE, Ur Phencyclidine Scrn NEGATIVE, Ur Amphetamines Screen NEGATIVE, U Benzodiazepines Scrn NEGATIVE, Urine Cocaine Screen NEGATIVE, U Cannabinoids Screen NEGATIVE 10/19/24 22:17: Ammonia < 10.0 L 10/19/24 22:58: POC Glucose 85 10/20/24 04:41: WBC 6.0, RBC 3.89 L, Hgb 11.6 L, Hct 36.3 L, MCV 93.3, MCH 29.8,MCHC 32.0, RDW Std Deviation 42.8, RDW Coeff of Meño 12.5, Plt Count 317, MPV 8.4, Immature Gran % (Auto) 0.500, Neut % (Auto) 57.4, Lymph % (Auto) 26.6, Navarro% (Auto) 8.5, Eos % (Auto) 6.2 H, Baso % (Auto) 0.8, Absolute Neuts (auto) 3.4, Absolute Lymphs (auto) 1.59, Nucleated RBC % 0, Sodium 140, Potassium 4.4, Chloride 107, Carbon Dioxide 22.1, Anion Gap 11, BUN 20 H, Creatinine 0.93, Estim Creat Clear Calc 41.85 L,Est GFR (MDRD) Non-Af 63, BUN/Creatinine Ratio 21.0 H, Glucose 186 H, Calcium 8.7, Total Bilirubin 0.27, AST 24, ALT 17, Alkaline Phosphatase 40, Total Protein 5.7 L, Albumin 3.3 L, Globulin 2.4, Albu min/Globulin Ratio 1.4, TSH 2.300 10/20/24 06:23: POC Glucose 157 H 10/20/24 12:37: POC Glucose 122 H 10/20/24 16:37: POC Glucose 119 H Physical Exam Const alert and no apparent distress Constitutional Narrative: Patient is confused but she is not agitated General Appearance: cooperative, well kempt and well developed Orientation / Consciousness: awake and oriented to person HEENT normocephalic, head/scalp atraumatic and moist oral mucous membranes Eyes PERRL, EOMs intact bilaterally and conjunctivae normal Neck supple, no JVD, thyroid normal and no carotid bruits General: trachea midline Resp normal respiratory effort, no retractions, no use of accessory muscles and clearto auscultation bilaterally Auscultation: Negative for rales, rhonchi or wheezes Cardio regular rate, regular rhythm, no murmurs, no rub and no gallops GI normal to inspection, nondistended, normoactive bowel sounds, soft to palpation,non-tender and non-distended Extremity no clubbing, cyanosis or edema Skin no rashes or lesions noted General Skin Exam: no breakdown Neuro CN's II-XII intact bilaterally, no focal motor deficits and no sensory deficits noted Neuro Narrative: Patient is confused, she is not agitated Sensorium / Orientation: awake, alert and oriented to person Speech: speech normal Psych Psych Narrative: Patient is confused, she is not agitated Assessment & Plan Assessment/Plan (1) Generalized weakness: PLAN: Plan 1. Acute on chronic debility-secondary to multiple medical problems including dementia and type 2 diabetes with neuropathy-PT and OT will continue to work with the patient, she will need placement [facility] half-way facility. I talked at length with the patient's daughter by phone deja-she is in [place]-I feel that the patient does have dementia. Patient's CODE STATUS will be a DNRCC arrest no intubation. The daughter who is her POA and I came to the agreement that it would not be in the patient's best interest to start her on medication for Alzheimer's disease. Patient also had an adverse effect from being on Seroquel previously-she became very lethargic on this medication. #2 type 2 diabetes-patient is on sliding scale insulin, I placed her back on metformin #3 essential hypertension-patient is not on losartan at this time, I will observe her blood pressure off this medication-she may not need this medication. Total clinical time spent by myself addressing the patient's medical issues, reviewing all of her data, and collaborating with patient's care team: 35 minutes Charges/Coding Visit Charges Inpatient E&M: 64379 Subs Hosp L2 10/20/24 1811 Cosigner Signature (if applicable): CC: ~ Signed [facility]06-24-2025 History and physical note Author Desiree Awan [facility] Note Date/Time October 19, 2024 7:23 pm [facility] Medical Records Department [address] [place] [address] H&P Exam - Hospitalist 10/19/24 1841 MR#: [id number] Acct: [id number] Name: JUDI PITTMAN Rep #:[id number] : 1945 79 From: Desiree Awan MD PCP: Dr. Ruddy Cooper MD Status:TERRELL HERRING Location: [facility] [place] UK417-2 HPI - General General Date of Admission: 10/19/24 Date of Service: 10/19/24 Chief Complaint: Generalized weakness HPI Narrative JUDI PITTMAN, is a 79-year-old female with history of diabetes, hypertension, anxiety presented [facility] ED 10/19/2024 due to weakness after a fall. Her daughter Sade called for a well check because she lives in [place] and was unable to get hold of [...] denies any other new or acute complaints [facility] Medical History Orthostatic hypotension Hoarseness History of [...] 70.1 H, Lymph % (Auto) 18.5 L, Navarro % (Auto) 8.1, Eos % (Auto) 2.5, [...] Clarity Cloudy, Urine pH 7.0, Ur Specific [place] 1.015, Urine Protein 15 H, Urine Glucose [...] seen. Calcified right-sided pleural plaques. Reading Location: [id number] Brain CT 10/19/24 13:50 IMPRESSION: NO SIGNIFICANT CHANGE SINCE THE PRIOR EXAM no acute abnormality is seen. Reading Location: [id number] Assessment & Plan Assessment/Plan (1) Generalized weakness: [...] Awan MD Charges/Coding Visit Charges Inpatient E&M: 90006 Init Hosp L2 10/19/241922 <Electronically signed by Desiree Awan MD> Cosigner Signature (if applicable): CC: Dr. Ruddy Cooper MD; Dr. Desiree Awan MD~ Signed [facility] Work Phone: 1(508) 276-225206-24-2025 History and physical note [facility] Medical Records Department [address] [place] [id number] H&P Exam - Hospitalist 10/19/24 1841 MR#: [id number] Acct: [id number] Name: JUDI PITTMAN Rep #:[id number] : 1945 79 From: Desiree Awan MD PCP: Dr. Ruddy Cooper MD Status:AD M NEVAEH Location: [facility] [place] UQ236-6 HPI - General General Date of Admission: 10/19/24 Date of Service: 10/19/24 Chief Complaint: Generalized weakness HPI Narrative JUDI PITTMAN, is a 79-year-old female with history of diabetes, hypertension, anxiety presented [facility] ED 10/19/2024 due to weakness after a fall. Her daughter Sade called for a well check because she lives in [place] and was unable to get hold of her mother. Patient lives alone and ambulates with cane or walker if needed. Today she was on the ground and had a hard time gettin g up and notes she was on the [...] denies any other new or acute complaints [facility] Medical History Orthostatic hypotension Hoarseness History of [...] 70.1 H, Lymph % (Auto) 18.5 L, Navarro % (Auto) 8.1, Eos % (Auto) 2.5, [...] Clarity Cloudy, Urine pH 7.0, Ur Specific [place] 1.015, Urine Protein 15 H, Urine Glucose (UA) Normal, Urine Ketones 5 H, Urine Occult Blood Negative, UrineNitrite Negative, Urine Bilirubin Negative, Urine Urobilinogen Normal, Ur Leukocyte Esterase Negative, Urine RBC 0-5 SEEN, Urine WBC 0-5 SEEN, Ur Squamous Epith Cells 0 SEEN, Amorphous Sediment 2+, Urine Bacteria 0 SEEN, Urine Mucus 0 SEEN Imaging Radiology Impression Chest X-Ray 10/19/24 13:30 IMPRESSION: No acute abnormality is seen. Calcified right-sided pleural plaques. Reading Location: [facility] Brain CT 10/19/24 13:50 IMPRESSION: NO SIGNIFICANT CHANGE SINCE THE PRIOR EXAM no acute abnormality is seen. Reading Location: [facility] Assessment & Plan Assessment/Plan (1) Generalized weakness: PLAN: Plan # Generalized weakness, ?confusion - Patient is able to answer orientation questions but does seem a little bit confused, is very poorhistorian - Hold nortriptyline - Unclear if patient [...] meet criteria for JUDSON) patient will be givenIV fluids and will hold losartan at this time - Will add as needed in the interim #DVT ppx: SCDs Desiree Awan MD Charges/Coding Visit Charges Inpatient E&M: 68721 Init Hosp L2 10/19/241922 Cosigner Signature (if applicable): CC: Dr. Ruddy Cooper MD; Dr. Desiree Awan MD~ Signed [facility]06-24-2025 Radiology Diagnostic study note [facility] Imaging Services [address] [place], [place] [address] Brain/Head without Contrast MR#: [id number] Acct: [id number] Name: JUDI PITTMAN Rep #: [id number] : 1945 F 79 From: Vladimir Huston MD PCP: Dr. 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 Ipsilateral dilatation ofthe left frontal horn in keeping with atrophy. This is unchanged. Sinuses/Mastoids: Minimal mucosal thickening of the right maxillary sinus. Bones: Prior left craniotomy. CT/Brain/Head without Contrast IMPRESSION: NO SIGNIFICANT CHANGE SINCE THE PRIOR EXAM no acute abnormality is seen. Reading Location: [facility] CC: Dr. Ruddy Cooper MD; Dr. Mikel Bonilla DO ~ Watch Manufacturing Supervisor: Signed [facility]06-24-2025 Radiology Diagnostic study note [facility] Imaging Services [address] [place] [id number] Chest PA and Lateral MR#: [id number] Acct: [id number] Name: JUDI PITTMAN Rep #: [id number] : 1945 F 79 From: Vladimir Huston MD PCP: Dr. Ruddy Cooper MD Status: RE G ER Study:Chest PA and Lateral Date of Exam: 10/19/24 Exam# [id number] Ordering Dr: Mikel Bonilla DO PROCEDURE: CHEST [...] seen. Calcified right-sided pleural plaques. Reading Location: [facility] CC: Dr. Ruddy Cooper MD; Dr. Mikel Bonilla DO ~ Watch Manufacturing Supervisor: Signed [facility]06-24-2025 Telephone encounter Note* Telephone Encounter - Marylin Camacho LPN - 10/19/2024 1:49 PM EDT Pt's daughter calls back. Reports pt went to ER. Marylin Camacho LPN [facility]06-24-2025 Miscellaneous Notes* Telephone Encounter - Marylin Camacho LPN - 10/19/2024 1:49 PM EDT Pt's daughter calls back. Reports pt went to ER. Marylin Camacho LPN * Telephone Encounter - Marylin Camacho LPN - 10/19/2024 1:25 PM EDT Lakshmi with HH calls to report pt is in the ER. Marylin Camacho LPN * Telephone Encounter - Bradford John APRN.CNS - 10/19/2024 1:05 PM EDT Noted. Order in. Recommendations as previously advised. * Telephone Encounter - Brigette Casanova MA - 10/19/2024 12:24 PM EDT Left message for daughter to call back. Per our vp digital marketing social media and crm Dea Dietz has left many messages for daughter and has not called her back or replied to [employer] but did read message on 10/18. Tried calling daughter again but rang and than phone went to [employer]. Called Lakshmi and she advised was there yesterday and tried to get urine but patient could not go for40 minutes. Lakshmi does not feel that patient has UTI just thinks normal alzheimer's. RACHID Stover through [facility] was there for assessment and Lakshmi will have her call us to let us know if updateon area aging coming? Please place order for urine and fax to [phone] Brigette Casanova MA * Telephone Encounter - Bradford John APRN.CNS - 10/19/2024 11:30 AM EDT [address] place an order however if she only brings in urine to the lab this can take some time for results to come back. This does not address problems with medication administration confusion or food insecurity. If she would like sooner / same day turnaround to check for UTI recommend she come into the office or be seen in [facility] today. Perhaps her caregiver could help with this. Otherwise recommend ER as previously noted. * Telephone Encounter - Paola Duff LPN - 10/19/2024 11:21 AM EDT Spoke with patients daughter. She states she does not want to send patient to the hospital without making sure that she does not have a UTI. She states that she has already has been talking with the vp digital marketing social media and crm at the hospital and she is aware of the situation. Daughter is asking if an order be placed to rule out UTI. She states patient for some reason won't give urine sample when in the facility so is asking if caregiver can stop by an fish bait picker container for her to do at home. Please advise * Telephone Encounter - Bradford John APRN.CNS - 10/19/2024 10:32 AM EDT As it is noted that Judi Pittman could not be reached by phone and there is concern for confusion, UTI and medication administration problems as well as food insecurity I believe our best recommendation is for her to go to the ER today. My understanding is that she has assistance from 12-2 today with a caregiver, would endorse the caregiver taking her to the ER. Would be beneficial to see social work in the ER if possible due to the above concerns and failure to thrive in the community, confusion, concern for UTI, medication administration problems and food insecurity. Please reach out to daughter/ local caregiver. * Telephone Encounter - Brigette Casanova MA - 10/19/2024 9:41 AM EDT Spoke to daughter she advised that they are trying to get patient placed for assisted living but [facility] wait list so far been 6 months waiting. Daughter not sure what else she can do and does feel dangerous or patient to be living alone. Patient appointment today had to be canceled because she would not answer phone call from daughter to tell her to get ready. Daughter thinks patient still has UTI and needs repeat urine done. Offered appointment but aid is only there from 03-29. Asking if order can be put in and aid can grab urine collection kit from lab and bring back? HH does not come till and in past patient can never give sample in office. Please advise if we can do culture or if maybe best go back to ER and see it vp digital marketing social media and crm consult can be done and admission through hospital? Brigette Casanova MA * Telephone Encounter - Bradford John APRN.CNS - 10/19/2024 7:12 AM EDT noted, do we know what family plans are for this? * Telephone Encounter - Angélica Parkinson RN - 10/18/2024 4:12 PM EDT Lakshmi from [facility] HH calls and states that she was out to see patient today. Daughter who lives in [place] was wanting her to check patient urine for UTI again because of patient's confusion. Patient hasnot urinary symptoms or complaints. Lakshmi states that she thinks patient is not safe to live by herself. Patient is not taking her medications correctly. Nursing had set up weeks work of medication in a pill organizer last week. Patient did not take any of the medication. Patient continued to have her pill bottles sitting out on table. Patient was unsure on whether or not she had taken her medication.Patient was prescribed 6 tablets of Cefdinir at discharge from hospital. Daughter thinks that patient took medications all at once when she got home from hospital. Patient also was sitting in living room. Patient had used coffee table to get up from chair. Her walker was in kitchen far away from where patient was sitting. Lakshmi wanted provider to be aware of this since patient has appointment tomorrow. 10/19/2024. Angélica Parkinson RN documented in [facility] Telephone encounter Note * Telephone Encounter - Marylin Camacho LPN - 10/19/2024 1:25 PM EDT Lakshmi with HH calls to report pt is in the ER. Marylin Camacho LPN [facility]06-[facility] Telephone encounter Note* Telephone Encounter - Bradford John APRN.CNS - 10/19/2024 1:05 PM EDT Noted. Order in. Recommendations as previously advised. [facility] Telephone encounter Note* Telephone Encounter - Brigette Casanova MA - 10/19/2024 12:24 PM EDT Left message for daughter to call back. Per our vp digital marketing social media and crm Dea Dietz has left many messages for daughter and has not called her back or replied to Simperiumhart but did read message on 10/18. Tried calling daughter again but rang and than phone went to [employer]. Called Lakshmi and she advised was there yesterday and tried to get urine but patient could not go for40 minutes. Lakshmi does not feel that patient has UTI just thinks normal alzheimer's. RACHID Stover through [facility] was there for assessment and Lakshmi will have her call us to let us know if updateon area aging coming? Please place order for urine and fax to [phone] Brigette Casanova MA [facility]06-[facility] History of Present illness Narrative* Dea Dietz LSW - 10/19/2024 11:57 AM EDT Value Based Social Work Progress Note Provider [...] 19, 2024 11:58 AM documented in this encounterOhio Valley Hospital06-24-2025 Telephone encounter Note * Telephone Encounter - Bradford John APRN.CNS - 10/19/2024 11:30 [address] ED[address] an order however if she only brings in urine to the lab this can take some time for results to come back. This does not address problems with medication administration confusion or food insecurity. If she would like sooner / same day turnaround to check for UTI recommend she come into the office or be seen in [facility] today. Perhaps her caregiver could help with this. Otherwise recommend ER as previously noted. [facility] Telephone encounter Note* Telephone Encounter - Paola Duff LPN - 10/19/2024 11:21 AM EDT Spoke with patients daughter. She states she does not want to send patient to the hospital without making sure that she does not have a UTI. She states that she has already has been talking with the vp digital marketing social media and crm at the hospital and she is aware of the situation. Daughter is asking if an order be placed to rule out UTI. She states patient for some reason won't give urine sample when in the facility so is asking if caregiver can stop by an fish bait picker container for her to do at home. Please advise [facility] Telephone encounter Note* Telephone Encounter - Bradford John APRN.CNS - 10/19/2024 10:32 AM EDT As it is noted that Judi Pittman could not be reached by phone and there is concern for confusion, UTI and medication administration problems as well as food insecurity I believe our best recommendation is for her to go to the ER today. My understanding is that she has assistance from 12-2 today with a caregiver, would endorse the caregiver taking her to the ER. Would be beneficial to see social work in the ER if possible due to the above concerns and failure to thrive in the community, confusion, concern for UTI, medication administration problems and food insecurity. Please reach out to daughter/ local caregiver. [facility] Telephone encounter Note* Telephone Encounter - Brigette Casanova MA - 10/19/2024 9:41 AM EDT Spoke to daughter she advised that they are trying to get patient placed for assisted living but brittany wait list so far been 6 months waiting. Daughter not sure what else she can do and does feel dangerous or patient to be living alone. Patient appointment today had to be canceled because she would not answer phone call from daughter to tell her to get ready. Daughter thinks patient still has UTI and needs repeat urine done. Offered appointment but aid is only there from 03-29. Asking if order can be put in and aid can grab urine collection kit from lab and bring back? HH does not come till and in past patient can never give sample in office. Please advise if we can do culture or if maybe best go back to ER and see it vp digital marketing social media and crm consult can be done and admission through hospital? Brigette Casanova MA [facility] Telephone encounter Note* Telephone Encounter - Brigette Casanova MA - 10/19/2024 9:32 AM EDT See phone note Brigette Casanova MA [facility]-24-[facility] Miscellaneous Notes* Telephone Encounter - Brigette Casanova MA - 10/19/2024 9:32 AM EDT See phone note Brigette Casanova MA documented in this encounterOhio [facility] Hospital06-24-2025 Telephone encounter Note * Telephone Encounter - Bradford John APRN.CNS - 10/19/2024 7:12 AM EDT noted, do we know what family plans are for this? [facility] Telephone encounter Note* Telephone Encounter - Angélica Parkinson RN - 10/18/2024 4:12 PM EDT Lakshmi from [facility] calls and states that she was out to see patient today. Daughter who lives in [place] was wanting her to check patient urine for UTI again because of patient's confusion. Patient hasnot urinary symptoms or complaints. Lakshmi states that she thinks patient is not safe to live by herself. Patient is not taking her medications correctly. Nursing had set up weeks work of medication in a pill organizer last week. Patient did not take any of the medication. Patient continued to have her pill bottles sitting out on table. Patient was unsure on whether or not she had taken her medication.Patient was prescribed 6 tablets of Cefdinir at discharge from hospital. Daughter thinks that patient took medications all at once when she got home from hospital. Patient also was sitting in living room. Patient had used coffee table to get up from chair. Her walker was in kitchen far away from where patient was sitting. Lakshmi wanted provider to be aware of this since patient has appointment tomorrow. 10/19/2024. Angélica Parkinson RN [facility] Telephone encounter Note* Telephone Encounter - Dea Dietz LSW - 10/18/2024 11:30 AM EDT Attmpted to reach patient via phone and My chart to discuss food insecurity. Will continue attemptsto reach THEA Meier [facility]06-23-2025 Miscellaneous Notes* Telephone Encounter - Dea Dietz LSW - 10/18/2024 11:30 AM EDT Attmpted to reach patient via phone and My chart to discuss food insecurity. Will continue attemptsto reach THEA Meier documented in this encounterOhio Valley Hospital06-23-2025 History of Present illness Narrative* Dea Dietz LSW - 10/18/2024 11:28 AM EDT Value Based Social Work Progress Note Provider Action / FYI PCP Action none Date of Service: 10/18/2024 Patient identified by name/: Yes- via Telephone Referral Source: Pursue ([facility]) Referral Patient Outreach: Initial Mode of Outreach: Phone Call Response Time: Unable to reach (2nd Attempt) Left message by: unable to leave VM, Messages are full. Will attempt to reach via Naldohart and call again tomorrow. THEA Meier October 18, 2024 11:29 AM documented in this encounterOhio Valley Hospital06-20-2025 Telephone encounter Note * Telephone Encounter - Bradford John APRN.CNS - 10/15/2024 4:56 PM EDT Noted, [place] [facility]06-20-20[facility] Miscellaneous Notes* Telephone Encounter - Bradford John APRN.CNS - 10/15/2024 4:56 PM EDT [place]ed, [place] * Telephone Encounter - Angélica Parkinson RN - 10/14/2024 1:01 PM EDT To calling from [facility] to report plan of care for patient and half-way will visit patient2 times a week for 2 weeks and 1 time a week for 1 week. Patient was put on Seroquel 25 mg daily at bedtime while in hospital in August. Patient also still hasAlprazolam 0.25 mg as needed at bedtime that was prescribed by Bradford burnett while back in home. Please review and Advise, Angélica Parkinson RN documented in this encounterOhio Valley Hospital06-20-2025 Telephone encounter Note * Telephone Encounter - Paola Duff LPN - 10/15/2024 11:05 AM EDT No answer. Left providers message and ask to call with any questions or concerns [facility]06-20-[facility] Miscellaneous Notes* Telephone Encounter - Paola Duff LPN - 10/15/2024 11:05 AM EDT No answer. 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 Dx of UTI. Shelly asking if provider will approve and follow patient for orders? Call Shelly at [phone] Christa Sandoval, RN documented in this encounterOhio Valley Hospital06-19-2025 Telephone encounter Note * Telephone Encounter - Bradford John APRN.CNS - 10/14/2024 5:04 PM EDT [facility] Telephone encounter Note* Telephone Encounter - Angélica Parkinson, LAURITA - 10/14/2024 1:01 PM EDT To calling from [facility] to report plan of care for patient and half-way will visit patient2 times a week for 2 weeks and 1 time a week for 1 week. Patient was put on Seroquel 25 mg daily at bedtime while in hospital in August. Patient also still hasAlprazolam 0.25 mg as needed at bedtime that was prescribed by Bradford burnett while back in home. Please review and Advise, Angélica Parkinson RN [facility]-19-2025 History of Present illness Narrative* Dea Dietz LSW - 10/14/2024 10:27 AM EDT Value Based Social Work Progress Note Provider Action / FYI PCP Action none Date of Service: 10/14/2024 Patient identified by name/: Yes- via Telephone Referral Source: Pursue ([facility]) Referral Patient Outreach: Initial Mode of Outreach: [...] 14, 2024 10:30 AM documented in this encounterOhio Valley Hospital06-18-2025 Telephone encounter Note * Telephone Encounter - Christa Sandoval RN - 10/13/2024 3:14 PM EDT Shelly calling from [facility] and [facility] pt discharged from [facility] on 10/12/24 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 Dx of UTI. Shelly asking if provider will approve and follow patient for orders? Call Shelly at [phone] Christa Sandoval RN [facility]06-18-[facility]25 History of Present illness Narrative* Mireya Thomas RN - 10/13/2024 2:39 PM EDT Transition Care Management (TCM) Initial Outreach Received call from pt dtr Sade Called Sade back to explain purpose of TCM outreach. Sade manages pt's appts Confirmed HHC coming today and that medications were given to pt at discharge but pt cannot find. Provided Sade w/ H@H number as well Encouraged use of triage line/return to ER for new/worsening symptoms documented in this encounterOhio Valley Hospital06-18-2025 History of Present illness Narrative* Nyla Hobbs RN - 10/13/2024 2:15 PM EDT Value Based Care Management Inbound Call Provider Action / FYI: PCC - Please call patient's daughter Sade back. Patient was confused by call earlier and daughterwould like call back to review discharge. Call Sade at [phone]. Thank you! Date of Call: 10/13/2024 Time [...] Action Taken / Plan Routed to Patient's Cripple Worker Nyla Hobbs RN October 13, 2024 2:16 PM documented in this encounterOhio Valley Hospital06-18-2025 Telephone encounter Note * Telephone Encounter - Corinne Ryan RN - 10/13/2024 2:08 PM EDT Daughter returning a call for Mireya Thomas RN. Patient not present on phone, RN conferenced to Nyla, career coach to take message for Mireya. [facility]-18-[facility] Miscellaneous Notes* Telephone Encounter - Corinne Ryan RN - 10/13/2024 2:08 PM EDT Daughter returning a call for Mireya Thomas RN. Patient not present on phone, RN conferenced to Nyla career coach to take message for Mireya. documented in this encounterOhio Valley Hospital06-18-2025 History of Present illness Narrative* Mireya Thomas RN - 10/13/2024 1:53 PM EDT Transition Care Management (TCM) Initial Outreach Social Work Update / Actionable Items Pt interested in learning about food resources. Thank you, Haritha BHATIA TCM Home Visit Referral Source of Stratification: [facility] Hospital Admission Status: Discharged Readmission Risk Score: N/A, OON Patient meets program referral criteria: No Patient does not qualify for High Risk TCM Home Visit program due to: Readmission Risk Score does not meet criteria Disposition: Patient does not qualify for [facility], will provide TCM outreach follow-up for 30-days Patient Source: Abx-fs-Wjenegf (OON) Discharge Outreach Summary: Doing pretty good, until this morning Woke up late, threw up twice this morning Believes she was nauseated in the hospital 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, a friend will do after she gets off work H@H number provided PCP appt 10/18/24 Dtr arranged for [facility] 2-3x/ week per pt Patient discharged from [place] Discharge date: 10/12/24 Admitted for: AMS w/ UTI Readmission Risk: N/A, OON Value-Based Contract: Moriah OLIVERA Contact: Contact made with patient: Yes Hi, my name is Mireya Thomas RN and I am calling from the [facility] on behalf of your Primary Care [...] appropriate pool: Medicare ACM Social Work Pool [[id number]] - Moriah SOTO MA Follow-Up Appointment: [Appointment / TCM Follow-up within 14 days] I would like to help you schedule a hospital follow-up virtual or telephone visit with your PCP. This is a great way for you to connect with your provider to ensure you have safely transitioned home.If you are agreeable, I will send your request to a housekeeping lead who will contact and assist you with [...] 13, 2024 1:54 PM documented in this encounterOhio Valley Hospital06-17-2025 Discharge summary Author Luis Baer [facility] Note Date/Time October 12, 2024 2:08 pm [facility] Medical Records Department [address] [place] [address] Discharge Summary 10/12/24 1359 MR#: [id number] Acct: [id number] Name: JUDI PITTMAN Rep #:[id number] : 1945 79 From: Luis newton MD PCP: Dr. Ruddy Cooper MD Status:AD M IN [facility] Prov[facility] Date of Admission: 10/10/24 Primary Care [...] Discharge: 34 Hospital Course: Per HPI: JUDI PITTMAN, is a 79 F who presents to [...] admission she was confused, she thought it [id number] but she knew who she was and [...] am (THIS APPOINTMENT WILL BE WITH PREMA JOHN ) Disposition Disposition (needs filled in before D/C Order can be placed): Home, Self Care Charges/Coding Visit Charges Inpatient E&M: 11157 Disch Hosp >30min 10/12/24 1408 <Electronically signed by Luis Baer MD> Cosigner Signature (if applicable): CC: Dr. Ruddy Cooper MD; Dr. Luis Baer MD~ Signed [facility] Work Phone: 1(458) 120-754506-17-2025 Consult note [facility] Medical Records Department [address] [place] [address] Counseling Note - Pharmacy 10/12/24 1456 MR#: [id number] Acct: [id number] Name: JUDI PITTMAN Rep #:[id number] : 1945 79 From: Kaya Thrasher PCP: Dr. Ruddy Cooper MD Status:AD M IN [facility] [address] [facility] Counseling Pharmacy Service has performed discharge medication [...] caps 10/12/24 10/12/24 1456 Date _ Kaya Farfanigner Signature (if applicable): Date CC: ~ Signed [facility]06-17-2025 Discharge summary Author Luis Baer [facility] Note Date/Time October 12, 2024 1:14 pm [facility] Medical Records Department [address] [place] [address] Instructions for Home/Discharge Instructions 10/12/24 1254 MR#: [id number] Acct: [id number] Name: JUDI PITTMAN Rep #:[id number] : 1945 79 From: Luis newton MD [...] CC: Dr. Ruddy Cooper MD ~ Signed [facility] Work Phone: [phone]) 163-225706-17-2025 Discharge summary [facility] Medical Records Department [address] [place] [address] Discharge Summary 10/12/24 1359 MR#: [id number] Acct: [id number] Name: JUDI PITTMAN Rep #:[id number] : 1945 79 From: Luis newton MD PCP: Dr. Ruddy Cooper MD Status:AD IN [facility] Providers Date of Admission: 10/10/24 Primary Care [...] Discharge: 34 Hospital Course: Per HPI: JUDI PITTMAN, is a 79 F who presents to [...] admission she was confused, she thought it [id number] but she knew who she was and [...] am (THIS APPOINTMENT WILL BE WITH PREMA JOHN ) Disposition Disposition (needs filled in before D/C Order can be placed): Home, Self Care Charges/Coding Visit Charges Inpatient E&M: 57814 Disch Hosp >30min 10/12/24 1408 Cosigner Signature (if applicable): CC: Dr. Ruddy Cooper MD; Dr. Luis Baer MD~ Signed [facility]06-17-2025 [facility] Discharge summary [facility] Medical Records Department [address] [place] [address] Instructions for Home/Discharge Instructions 10/12/24 1254 MR#: [id number] Acct: [id number] Name: JUDI PITTMAN Rep #:[id number] : 1945 79 From: Luis newton MD [...] CC: Dr. Ruddy Cooper MD ~ Signed [facility]06-16-2025 Progress note Author Luis Baer [facility] Note Date/Time October 11, 2024 9:58 am [facility] Medical Records Department [address] [place] [address] Progress Note - Hospitalist 10/11/24 0956 MR#: [id number] Acct: [id number] Name: JUDI PITTMAN Rep #:[id number] : 1945 79 From: Luis newton MD PCP: Dr. Ruddy Cooper MD Status:AD M IN Location: MS3 GI050-3 Subjective Subjective Doing well today, seems little [...] % (Auto) 62.3, Lymph % (Auto) 23.5, Navarro % (Auto) 9.3, Eos % (Auto) 3.8, [...] Clarity Cloudy, Urine pH 7.0, Ur Specific [place] 1.015, Urine Protein 15 H, Urine Glucose [...] % (Auto) 57.4, Lymph % (Auto) 28.2, Navarro% (Auto) 8.5, Eos % (Auto) 5.2 H, [...] Catch Urine Culture - Preliminary GNR lactose assurance auditor 10/10/24 15:20 Mucosa - Nose SARS-CoV-2, Influenza & RSV (PCR) - Final Radiography Diagnostic Testing: Radiology Impression Brain CT 10/10/24 14:21 IMPRESSION: No acute intracranial finding. Stable postoperative changes as described. Reading Location: [facility] Chest X-Ray 10/10/24 15:05 IMPRESSION: NO ACUTE FINDINGS. Reading Location: [facility] Physical Exam Narrative General: Alert, Oriented x3, [...] DVT: Lovenox Charges/Coding Visit Charges Inpatient E&M: 32983 Subs Hosp L2 10/11/24957 <Electronically signed by Luis Baer MD> Cosigner Signature (if applicable): CC: ~ Signed [facility] Work Phone: 1(620) 302-139406-16-2025 Progress note [facility] Medical Records Department [address] [place] [address] Progress Note - Hospitalist 10/11/2456 MR#: [id number] Acct: [id number] Name: JUDI PITTMAN Rep #:[id number] : 1945 79 From: Luis newton MD PCP: Dr. Ruddy Cooper MD Status:AD M IN Location: MS3 PN745-2 Subjective Subjective Doing well today, seems little [...] % (Auto) 62.3, Lymph % (Auto) 23.5, Navarro % (Auto) 9.3, Eos % (Auto) 3.8, [...] Clarity Cloudy, Urine pH 7.0, Ur Specific [place] 1.015, Urine Protein 15 H, Urine Glucose (UA) Normal, Urine Ketones Negative, Urine Occult Blood Negative, Urine Nitrite Positive H, Urine Bilirubin Negative, Urine Urobilinogen Normal, Ur Leukocyte [id number] H, Urine RBC 0 SEEN, Urine WBC [...] % (Auto) 57.4, Lymph % (Auto) 28.2, Navarro% (Auto) 8.5, Eos % (Auto) 5.2 H, [...] Catch Urine Culture - Preliminary GNR lactose assurance auditor 10/10/24 15:20 Mucosa - Nose SARS-CoV-2, Influenza & RSV (PCR) - Final Radiography Diagnostic Testing: Radiology Impression Brain CT 10/10/24 14:21 IMPRESSION: No acute intracranial finding. Stable postoperative changes as described. Reading Location: [facility] Chest X-Ray 10/10/24 15:05 IMPRESSION: NO ACUTE FINDINGS. Reading Location: [facility] Physical Exam Narrative General: Alert, Oriented x3, [...] DVT: Lovenox Charges/Coding Visit Charges Inpatient E&M: 37257 [facility] Hosp L2 10/11/24 0958 Cosigner Signature (if applicable): CC: ~ Signed [facility]06-16-2025 Discharge summary Author Jose Dodd [facility] Note Date/Time October 10, 2024 10:3 5pm [facility] Medical Records Department [address] [place] [address] Emergency Department Summary 10/10/24 MR#: [id number] Acct: [id number] Name: JUDI PITTMAN Rep #:[id number] : 1945 79 From: Jose Abdullahi PCP: Dr. Ruddy Cooper MD Status:AD M IN Location: [facility] XK208-9 HPI History of Present Illness Chief Complaint: [...] is September. Patient thinks it is 1974. [facility] Medical History Orthostatic hypotension Hoarseness History [...] % (Auto) 62.3 Lymph % (Auto) 23.5 Navarro % (Auto) 9.3 Eos % (Auto) 3.8 [...] Clarity Cloudy Urine pH 7.0 Ur Specific [place] 1.015 Urine Protein 15 H Urine Glucose [...] Stable postoperative changes as described. Reading Location: [facility] Chest X-Ray 10/10/24 15:05 IMPRESSION: NO ACUTE FINDINGS. Reading Location: [facility] CT scan of the brain was obtained. [...] sinus rhythm with a rate of 92. KS interval, QRS interval, and QTc intervals were [...] MD [Primary Care Provider] - Print Language: Jamaican Disposition Disposition: Acute Care Hospital [facility] What to do if you have Problems For any increased pain, shortness of breath, bleeding, nausea or vomiting, chestpain, or any unexpected problems, contact your Primary Care Provider. Call [facility] ([phone]) or report to the closest Emergency Room. Call 911 if necessary. 10/10/242234 <Electronically signed by Jose Dodd DO> Cosigner Signature (if applicable): CC: Dr. Ruddy Cooper MD ~ Signed [facility] Work Phone: 1(641) 627-657006-15-2025 Discharge summary [facility] Medical Records Department [address] [place] [address] Emergency Department Summary 10/10/24 MR#: [id number] Acct: [id number] Name: JUDI PITTMAN Rep #:[id number] : 1945 79 From: Jose Abdullahi PCP: Dr. Ruddy Cooper MD Status:AD M IN Location: [place] 652604-1 HPI History of Present Illness Chief Complaint: [...] and Friday. Patient thinks it is 1974. [facility] Medical History Orthostatic hypotension Hoarseness History [...] % (Auto) 62.3 Lymph % (Auto) 23.5 Navarro % (Auto) 9.3 Eos % (Auto) 3.8 [...] Clarity Cloudy Urine pH 7.0 Ur Specific [place] 1.015 Urine Protein 15 H Urine Glucose [...] Stable postoperative changes as described. Reading Location: [facility] Chest X-Ray 10/10/24 15:05 IMPRESSION: NO ACUTE FINDINGS. Reading Location: [facility] CT scan of the brain was obtained. [...] anormal sinus rhythm with arate of 92. KS interval, QRS interval, and QTc intervals were [...] MD [Primary Care Provider] - Print Language: Jamaican Disposition Disposition: Acute Care Hospital [facility] What to do if you have Problems For any increased pain, shortness of breath, bleeding, nausea or vomiting, chestpain, or any unexpected problems, contact your Primary Care Provider. Call Doctors Registry ([phone]) or report tothe closest Emergency Room. Call 911 if necessary. 10/10/242234 Cosigner Signature (if applicable): CC: Dr. Ruddy Cooper MD ~ Signed [facility]06-15-2025 History and physical note Author Luis Baer [facility] Note Date/Time October 10, 2024 6:42 pm [facility] Medical Records Department [address] [facility] [place] [address] H&P Exam - Hospitalist 10/10/24 1640 MR#: [id number] Acct: [id number] Name: JUDI PITTMAN Rep #:[id number] : 1945 79 From: Luis newton MD PCP: Dr. Ruddy Cooper MD Status:AD M IN Location: [place] [address]-1 HPI - General General Date of Admission: 10/10/24 HPI Narrative JUDI PITTMAN, is a 79 F who presents to [...] dose of Rocephin in the emergency room. [facility] Medical History Orthostatic hypotension Hoarseness History of [...] % (Auto) 62.3, Lymph % (Auto) 23.5, Navarro % (Auto) 9.3, Eos % (Auto) 3.8, [...] Clarity Cloudy, Urine pH 7.0, Ur Specific [place] 1.015, Urine Protein 15 H, Urine Glucose [...] Stable postoperative changes as described. Reading Location: [facility] Chest X-Ray 10/10/24 15:05 IMPRESSION: NO ACUTE FINDINGS. Reading Location: [facility] Assessment & Plan Assessment/Plan (1) Urinary tract [...] with colleagues Charges/Coding Visit Charges Inpatient E&M: 62306 Init Hosp L3 10/10/24 1842 <Electronically signed by Luis Baer MD> Cosigner Signature (if applicable): CC: Dr. Ruddy Cooper MD; Dr. Luis Baer MD~ Signed [facility] Work Phone: 1(721) 511-993006-15-2025 History and physical note [facility] Medical Records Department [address] [place] [address] H&P Exam - Hospitalist 10/10/24 1640 MR#: [id number] Acct: [id number] Name: JUDI PITTMAN Chevy Rep #:[id number] : 1945 79 From: Luis newton MD PCP: Dr. Ruddy Cooper MD Status:AD M IN Location: MS3 [id number] HPI - General General Date of Admission: 10/10/24 HPI Narrative JUDI PITTMAN, is a 79 F who presents to [...] dose of Rocephin in the emergency room. [facility] Medical History Orthostatic hypotension Hoarseness History of [...] % (Auto) 62.3, Lymph % (Auto) 23.5, Navarro % (Auto) 9.3, Eos % (Auto) 3.8, [...] Clarity Cloudy, Urine pH 7.0, Ur Specific [place] 1.015, Urine Protein 15 H, Urine Glucose (UA) Normal, Urine Ketones Negative, Urine Occult Blood Negative, Urine Nitrite Positive H, Urine Bilirubin Negative, Urine Urobilinogen Normal, Ur Leukocyte [id number] H, Urine RBC 0 SEEN, Urine WBC 5-10 SEEN, Ur Squamous Epith Cells 0-5 SEEN, Amorphous Sediment 3+, Urine Bacteria 4+, Coarse Granular Casts 0-5 SEEN, Urine Mucus 0 SEEN Micro: Microbiology 10/10/24 15:20 Mucosa - Nose SARS-CoV-2, Influenza & RSV (PCR) - Final Imaging Radiology Impression Brain CT 10/10/24 14:21 IMPRESSION: No acute intracranial finding. Stable postoperative changes as described. Reading Location: [facility] Chest X-Ray 10/10/24 15:05 IMPRESSION: NO ACUTE FINDINGS. Reading Location: [facility] Assessment & Plan Assessment/Plan (1) Urinary tract [...] with colleagues Charges/Coding Visit Charges Inpatient E&M: 00722 Init Hosp L3 10/10/24 1842 Cosigner Signature (if applicable): CC: Dr. Ruddy Cooper MD; Dr. Luis Baer MD~ Signed [facility]06-15-2025 Radiology Diagnostic study note [facility] Imaging Services [address] [place] [address] Chest PA and Lateral MR#: [id number] Acct: [id number] Name: JUDI PITTMAN Rep #: [id number] : 1945 F 79 From: Tess Hoskins MD PCP: Dr. Ruddy Cooper MD Status: RE G ER Study:Chest PA and Lateral Date of Exam: 10/10/24 Exam# [id number] Ordering Dr: Jose Dodd DO PROCEDURE: CHEST [...] Lateral IMPRESSION: NO ACUTE FINDINGS. Reading Location: [facility] CC: Dr. Jose Dodd DO; Dr. Ruddy Cooper MD ~ Watch Manufacturing Supervisor: Signed [facility]06-15-2025 Radiology Diagnostic study note [facility] Imaging Services [address] [place] [address] [id number] Brain/Head without Contrast MR#: [id number] Acct: [id number] Name: JUDI PITTMAN Rep #: [id number] : 1945 F 79 From: Tess Hoskins MD PCP: Dr. Ruddy Cooper MD Status: RE ER Study:Brain/Head without Contrast Date of Exa m: 10/10/24 Exam# [id number] Ordering Dr: Jose Dodd DO EXAM: BRAIN/HEAD [...] Stable postoperative changes as described. Reading Location: [id number] CC: Dr. Jose Dodd DO; Dr. Ruddy Cooper MD ~ Watch Manufacturing Supervisor: Signed [facility]06-10-2025 Telephone encounter Note* Telephone Encounter - Brigette Casanova MA - 10/05/2024 8:35 AM EDT Called daughter and went over SW note on 09/08 where she gave info for CC assessment. Advised if info taken misplaced can call [facility] and they can provide information on that since we do not order these Brigette Casanova MA [facility]06-10-2025 Miscellaneous Notes* Telephone Encounter - Brigette Casanova MA - 10/05/2024 8:35 AM EDT Called daughter and went over SW note on 09/08 where she gave info for CC assessment. Advised if info taken misplaced can call [facility] and they can provide information on that since we do not order these Brigette Casanova MA documented in this encounterOhio Valley Hospital05-28-2025 History of Present illness Narrative* Mary Ann Castellon MA - 09/22/2024 2:30 PM EDT POPULATION HEALTH NAVIGATION OUTREACH Action/FYI Patient calling in asking to speak with Bradford John CNP or for her cell number to call her directly. Advised patient I do not have direct contact information for HSE MANAGER but can get a message over to her.Asked patient if there was something I could help with. Patient with questions about recent medication dose change. States received new Rx at last OV for Losartan 25 mg. Asking if she is supposed to take both the 50 mg and 25 mg together or just one of them. Upon chart review HSE MANAGER decreased Losartan as BP readings have been [...] 22, 2024 2:30 PM documented in this encounterOhio Valley Hospital05-15-2025 Discharge summary [facility] Medical Records Department [address] [place] [address] Emergency Department Summary 09/08/24 MR#: [id number] Acct: [id number] Name: JUDI PITTMAN Rep #:[id number] : 1945 79 From: Yossi Heredia MD [...] similar symptoms: Yes Recent Illness/Hospitalization: Yes PFSH [facility] Medical History Orthostatic hypotension Hoarseness History of [...] all 4 extremities. 5 out of 5 community outreach specialist strength. Dorsi plantarflexion intact. No drift. [...] % (Auto) 56.0 Lymph % (Auto) 29.8 Navarro % (Auto) 7.8 Eos % (Auto) 5.0 [...] dizziness. Return if feeling worse. Print Language: Jamaican Disposition Disposition: Home, Self Care What to do if you have Problems For any increased pain, shortness of breath, bleeding, nausea or vomiting, chestpain, or any unexpected problems, contact your Primary Care Provider. Call [facility] ([phone]) or report tothe closest Emergency Room. Call 911 if necessary. 09/09/24 0048 Cosigner Signature (if applicable): CC: Dr. Ruddy Cooper MD ~ Signed [facility]05-14-2025 Discharge summary Author Yossi Heredia [facility] Note Date/Time September 09, 2024 12:48 am [facility] Medical Records Department [address] [place] [address] Emergency Department Summary 09/08/24 MR#: [id number] Acct: [id number] Name: JUDI PITTMAN Rep #:[id number] : 1945 79 From: Yossi Heredia MD [...] Prior similar symptoms: Yes Recent [facility] Medical History Orthostatic hypotension Hoarseness History of [...] all 4 extremities. 5 out of 5 community outreach specialist strength. Dorsi plantarflexion intact. No drift. [...] % (Auto) 56.0 Lymph % (Auto) 29.8 Navarro % (Auto) 7.8 Eos % (Auto) 5.0 [...] dizziness. Return if feeling worse. Print Language: Jamaican Disposition Disposition: Home, Self Care What to do if you have Problems For any increased pain, shortness of breath, bleeding, nausea or vomiting, chestpain, or any unexpected problems, contact your Primary Care Provider. Call [facility] ([phone]) or report to the closest Emergency Room. Call 911 if necessary. 09/09/24 0048 <Electronically signed by Yossi Heredia MD> Cosigner Signature (if applicable): CC: Dr. Ruddy Cooper MD ~ Signed [facility] Work Phone: 1(798) 314-467505-14-2025 Telephone encounter Note* Telephone Encounter - Salome Perez MSW - 09/08/2024 11:03 AM EDT Rachid left patient message to call Sw back. Sw also reached out to patient daughter Sade. Sade notes that when patient was last in the hospital insurance would not cover for patient to go to rehab. Sade also notes that patient has not been open to going to fpc care center. Discussed Care Patrol-Shelly,Long Term Advisor as an option for patient to reach out to in regards to home care, memory care, fpc care planning. Sade and RACHID also discussed [facility] and [facility] as options for [...] to Jonathon Rudolph to discuss care options. [facility]05-14-2025 Miscellaneous Notes* Telephone Encounter - Salome Perez MSW - 09/08/2024 11:03 AM EDT Rachid left patient message to call Rachid back. Rachid also reached out to patient daughter Sade. Sade notes that when patient was last in the hospital insurance would not cover for patient to go to rehab. Sade also notes that patient has not been open to going to fpc care center. Discussed [facility]-Shelly,Long Term Advisor as an option for patient to reach out to in regards to home care, memory care, fpc care planning. Sade and SW also discussed [facility] and [facility] as options for [...] to discuss care options. documented in this encounterOhio Valley Hospital05-13-2025 Telephone encounter Note * Telephone Encounter - Ruddy Cooper MD - 09/07/2024 3:15 PM EDT Appointment Friday was canceled and rescheduled with Bradford today--patient seen. [facility]05-13-2025 Miscellaneous Notes* Telephone Encounter - Ruddy Cooper MD - 09/07/2024 3:15 PM EDT Appointment Friday was canceled and rescheduled with Bradford today--patient seen. * Telephone Encounter - Jeanne Iverson MA - 09/06/2024 7:52 AM EDT See pt's Daughter, Sade's update regarding pt. Pt has Hospital f/u appt scheduled today with you. Jeanne Iverson MA documented in this encounterCleveland [id number] Instructions* Patient Instructions* Bradford John APRN.CNS - 09/07/2024 2:31 PM EDT I recommend staying with someone for a while for now due to your frequent falls and possible memoryproblems. [facility]. Stop taking losartan 50 mg and start taking losartan 25 mg daily. Do not start or resume taking the quetiapine (the Q medication) until you have been evaluated by a heel painter per your preference. A driving evaluation has been ordered to assess your ability to drive safely; please follow up to schedule this evaluation. Do not drive until you have completed this evaluation. Please set up an appointment with Dr. Bartlett for neuropsychiatric testing and a review of your medications to address memory concerns. Consider discussing with social work possible support options to help prevent falls and ensure yoursafety at home. documented in this encounterOhio Valley Hospital05-13-2025 History of Present illness Narrative* Bradford John APRN.CNS - 09/07/2024 1:47 PM EDT SUBJECTIVE: Diabetic Foot Exam Never done DTaP,Tdap,Td Vaccine(1 - Tdap) Never done Shingrix Vaccine(1 of 2) Never done Pneumococcal Vaccine: 50+(2 of 2 - PCV) due on 05/04/2015 RSV Vaccine(1 - 1-dose 75+ series) Never done HPI Judi Pittman is a 79 year old female. PMH [...] Neuropathy, Without Long-Term Current Use of Insulin ([facility]) History of Cva (Cerebrovascular Accident) Dyspepsia Closed [...] discharge follow-up visit. She was seen at [facility] August 25 through August 30, 2024 for [...] the patient's daughter who is power of side framer to review her current status. Daughter notes [...] was being considered by her daughter, jamil POMaite. She declined home health care at discharge. Presents today noting that she drove to her appointment today. Wanted her daughter Pierce to listen in on phone for visit which was done. Living situation: reports living at home alone Assistance: son comes over whenever she needs him, lives in [place]. She also has a friendwith a multimedia authoring specialist job that cn come over to help at times Falls: report none since discharge Tushar Pittman is local son. Eve. . No complaints [...] discharge. - Living alone; son lives in [place], but Judi prefers to stay at her [...] Abs Lymph 1.00 - 4.00 k/uL 2.34 Navarro% % 8.6 Abs Navarro <0.87 k/uL 0.71 Eosin% % 3.3 Abs [...] been taken; familyexpressed concerns about the medication.Judi Pittman prefers to not take at this time - Referred to Dr. Bartlett, a heel painter, for further evaluation and management of dementia and behavioral disturbances. Declined to schedule at this time. - Discussed the importance of having someone stay with the patient temporarily to monitor for fallsand ensure safety. - Recommended holding off on quetiapine until evaluation by heel painter. - Advised family to consider assisted living or home care services to ensure patient safety. Judi Pittman declined [facility] at this time 3. Failure to [...] dosage by half; new prescription sent to [facility].. 5. Urinary tract infection without hematuria, [...] driving at this time for her safety. [facility] appointments and home health care as well [...] Level: 4 - Moderate documented in this encounterOhio Valley Hospital05-12-2025 Telephone encounter Note * Telephone Encounter - Jeanne Iverson MA - 09/06/2024 7:52 AM EDT See pt's Daughter, Sade's update regarding pt. Pt has Hospital f/u appt scheduled today with you. Jeanne Iverson MA [facility]05-07-2025 History of Present illness Narrative* Lamar [...] with PCP --END CALL documented in this encounter[address]07-2025 History of Present illness Narrative* Jocelyn Hudson MA - 09/01/2024 9:38 AM EDT POPULATION HEALTH NAVIGATION OUTREACH Action/FYI Community Monitoring Navigation Pool/TCM TCM eligible through 09/13/2024 Pt discharged from [facility] on 08/30/2024 Admitted for: Fall, Failure [...] Scheduled Hematology Patient reports going to outside [facility] for Dilated Retinal Exam Reason for [...] Medium risk 10-14% Specialty Scheduling 09/06/2024 in [facility] with RUDDY COOPER - Hospital Follow Up/TCM eligible through 09/13/2024- HCC Gap Closure , Pt discharged from [facility] on 08/30/2024, Admitted for: Fall, Failure tothrive , Highest Readmission Risk Score: N/A 09/14/2024 in [facility] with RAPHAEL PERDOMO - 6 MO OV 12/06/2024 in [facility] with BRADFORD JOHN - 2024 Medicare Wellness Z00.00/HCC Gap Closure 01/06/2025 in [facility] with [facility] - Encounter for screening mammogram for breast cancer [Z12.31] 03/01/[address] [facility] [address] CT [facility] (I-STAT) - Dx: Nonruptured cerebral aneurysm [...] 01, 2024 9:38 AM * Lamar De Leon, LAURITA - 09/01/2024 9:01 AM EDT Transition Care Management (TCM) Initial Outreach PCP Update / Actionable Items Pharmacy Update / Actionable Items [facility] Admitted for falls and failure to thrive [...] TCM Home Visit Referral Source of Stratification: [facility] Hospital Admission Status: Discharged Readmission Risk Score: na Patient's zip code: Is zip code within program service area: Patient meets program referral criteria: No Patient does not qualify for High Risk TCM Home Visit program due to: Readmission Risk Score does not meet criteria Disposition: Patient does not qualify for HRTIC, will provide TCM outreach follow-up for 30-days Patient Source: [facility] ([facility]) Discharge Outreach Summary: Feels much better at home. [place] she did not get quality care at [facility] Offered emotional support Pt lives alone and daughters are out of state. Denies falls, dizziness, light headedness, CP, SOB Pt has a toe deformity and it catches on things and she feels that is why she has falls Recommended wearing shoes while ambulating and remove throw rugs Eating and drinking. Per pt she was not discharged with [facility]. Pt unsure of medications since discharge. Agreed to pharm Routed Recommended if any new or worsening symptoms contact PCP or H@H Patient discharged from [place] [facility] Discharge date: 08/30/24 Admitted for: Fall, Failure to thrive Readmission Risk: n/a Value-Based Contract: Moriah OLIVERA Contact: Contact made with patient: Yes Hi, my name is Lamar De Leon RN and I am calling from the [facility] on behalf of your Primary Care [...] further. Routed to RX 4C Medication Question ([id number]) and indicate in Pharmacy Box Medication Review: [...] I will send your request to a housekeeping lead who will contact and assist you with [...] 01, 2024 9:03 AM documented in this encounterOhio Valley Hospital05-05-2025 [facility]05-01-2025 Telephone encounter Note* Telephone Encounter - Raphael Perdomo APRN.CNP - 08/26/2024 8:22 AM EDT Noted. Sorry to hear that. Raphael Perdomo APRN.CNP [facility]05-01-2025 Miscellaneous Notes* Telephone Encounter - Raphael Perdomo APRN.CNP - 08/26/2024 8:22 AM EDT Noted. Sorry to hear that. Raphael Perdomo APRN.CNP * Telephone Encounter - Isha Kaur - 08/26/2024 8:12 AM EDT Patient's daughter called to cancel 08/26 appointment with Raphael due to falling last night. [facility]. Isha Kaur documented in this encounterOhio Valley Hospital05-01-2025 Telephone encounter Note * Telephone Encounter - Isha Kaur - 08/26/2024 8:12 AM EDT Patient's daughter called to cancel 08/26 appointment with Raphael due to falling last night. [facility] the hospital [facility]. Isha Kaur [facility]05-01-2025 Evaluation note* Diagnosis Onset Date Resolution Status Admit Date Adult failure to thrive resolved A pril 2024 11:50pm Multiple falls resolved July 11:50pm Physical debility resolved July 292024 11:50pm [facility] Work Phone: 1(627) 994-783205-01-2025 Evaluation note* Diagnosis Onset Date Resolution Status Admit Date Adult failure to thrive resolved A pril 2024 11:50pm Multiple falls resolved July 11:50pm Physical debility resolved July 292024 11:50pm Confusion acute October 10 4:33pm Lactic acidosis acute September 4:33pm Urinary tract infection acute J une 2024 4:33pm [facility] Work Phone: 1(865) 331-513505-01-2025 Evaluation note* Diagnosis Onset Date Resolution Status Admit Date Adult failure to thrive resolved A pril 2024 11:50pm Multiple falls resolved July 11:50pm Physical debility resolved July 292024 11:50pm Confusion acute October 10 4:33pm Lactic acidosis acute September 4:33pm Urinary tract infection acute J une 2024 4:33pm Generalized weakness acute October 19, 2024 7:08pm [facility] Work Phone: 1(234) 474-696905-01-2025 Evaluation note* Diagnosis Onset Date Resolution Status Admit Date Adult failure to thrive resolved A pril 2024 11:50pm Multiple falls resolved July 11:50pm Physical debility resolved July 292024 11:50pm Confusion acute October 10 4:33pm Lactic acidosis acute September 4:33pm Urinary tract infection resolved J une 2024 4:33pm Confusion acute October 19 6:41pm Dementia without behavioral disturbance acute October 19, 2024 6:41pm Fall acute October 19 6:41pm Generalized weakness acute October 19, 2024 6:41pm [facility] Work Phone: 1(864) 380-669505-01-2025 Evaluation note* Diagnosis Onset Date Resolution Status Admit Date Adult failure to thrive resolved A pril 2024 11:50pm Multiple falls resolved July 11:50pm Physical debility resolved July 292024 11:50pm Confusion acute October 10 4:33pm Lactic acidosis acute September 4:33pm Urinary tract infection resolved J [facility] 2024 4:33pm Confusion acute October 19 6:41pm Dementia without behavioral disturbance acute October 19, 2024 6:41pm Fall inactive October 19 6:41pm Generalized weakness inactive October 19, 2024 6:41pm [facility] Work Phone: 1(485) 589-649404-29-2025 Telephone encounter Note* Telephone Encounter - Sarah Bain RN - 08/24/2024 12:58 PM EDT Daughter inquiring about lab results. Lipid panel with multiple elevated values. Have you received any outside charts for her. I have not seen anything, but someone else could have put on your desk without putting in an encounter. [facility]04-29-2025 Miscellaneous Notes* Telephone Encounter - Sarah Bain RN - 08/24/2024 12:58 PM EDT Daughter inquiring about lab results. Lipid panel with multiple elevated values. Have you received any outside charts for her. I have not seen anything, but someone else could have put on your desk without putting in an encounter. documented in this encounterOhio Valley Hospital04-29-2025 Telephone encounter Note * Telephone Encounter - Elma Fuchs APRN.CNP - 08/24/2024 7:29 AM EDT See results message [facility]04-29-2025 Miscellaneous Notes* Telephone Encounter - Elma Fuchs APRN.CNP - 08/24/2024 7:29 AM EDT See results message documented in this encounterOhio Valley Hospital04-22-2025 Telephone encounter Note * Telephone Encounter [...] Lamar Sierra August 17, 2024 4:47 PM [facility]04-22-2025 Miscellaneous Notes* Telephone Encounter - Lamar [...] 17, 2024 4:47 PM documented in this encounterOhio Valley Hospital04-22-2025 Telephone encounter Note * Telephone Encounter - Bradford John APRN.CNS - 08/17/2024 11:22 AM EDT ok [facility]04-22-2025 Miscellaneous Notes* Telephone Encounter - Bradford John APRN.CNS - 08/17/2024 11:22 AM EDT ok * Telephone Encounter - Joanna Templeton LPN - 08/17/2024 11:17 AM EDT [facility] calling, patient is there for blood work. Requesting a urine test, she had one done a week ago for UTI, is requesting a repeat lab to see if it has cleared up. Please review and advise. documented in this encounterOhio Valley Hospital04-22-2025 Telephone encounter Note * Telephone Encounter - Joanna Templeton LPN - 08/17/2024 11:17 AM EDT [facility] calling, patient is there for blood work. Requesting a urine test, she had one done a week ago for UTI, is requesting a repeat lab to see if it has cleared up. Please review and advise. [facility]04-21-2025 Instructions* Patient Instructions* Khris Salinas MD - 08/16/2024 1:28 PM EDT Complete a fasting blood test tomorrow morning at a local [facility] facility in [place] (plan for an 8-10 hour fast before the test) to help assess potential contributors to your neuropathy. Sign the release form provided by our team so we can obtain your recent EMG report from Dr. Mcguire at [facility] (from July 20) for review. Try to avoid leaning on your elbows--especially when sitting in your recliner--to reduce pressure on your ulnar nerve and help lessen hand weakness. Consider purchasing slip-on sneakers (such as those from [employer] or [employer]) that are designed for easier entry and better support to improve mobility. documented in this encounterOhio Valley Hospital04-21-2025 History of Present illness Narrative* Khris Salinas MD - 08/16/2024 12:46 PM EDT [facility] New Patient Evaluation Consulting Provider: Melani Zuniga [address] [facility] [address] Individuals who were included in, or assisted with the encounter were: Judi Chevy Toya Salinas MD Chief Complaint/Issues: Judi Pittman is a 79 year old female seen in the [facility] for: Neuropathy HPI: Judi [...] take regular pa in medication but uses dmtv-zmr-hokymle pain relievers as needed, particularly at night to aid sleep. 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 She retired about five to six years ago. She does not endorse significantneck pain, reporting it occurs about once a month. She was recently evaluated by Dr. Mcguire at the [facility], who performed an EMG and [...] help. [place] [facility] but has neighbors nearby. Her medical history is significant for diabetes, diagnosed a few months ago, with an A1c of 6.8% [id number]. She also has a history of four aneurysms, the first of which was coiled in 2003 at the [facility]. She underwent additional procedures in 2004 [...] 5 5 Wrist extension 5 5 Finger flexion/community outreach specialist 5 5 Finger pollicis longus 4+ [...] - Recent EMG performed on 07/20 at [facility]; will obtain records for review. - Diabetes mellitus type 2 is a known contributing factor; A1c has improved over time. - Ordered comprehensive fasting blood work to evaluate for additional causes of neuropathy, including vitamin deficiencies and autoimmune processes. - Advised patient to present to any [facility] facility for blood draw after an [...] lesions. - Referral to Dr. Zapata in [place] or [place] for further evaluation and management if needed. Recording using Post-i software for draft documentation of the visit was discussed with the patient/authorized sales representative door to door; all questions welcomed and answered. 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 ([facility]) Primary Osteoarthritis of Right Knee Status Post Right Knee Replacement Type 2 Diabetes Mellitus With Diabetic Neuropathy, Without Long-Term Current Use of Insulin ([facility]) History of Cva (Cerebrovascular Accident) Dyspepsia Closed [...] Right OPEN TREATMENT,TRIMALLEOLAR ANKLE FRACTURE Right 05/29/2018 [facility] PICC LINE INSERT/CONSULT 01/23/2021 PICC LINE [...] 6.5 (H) 4.3 - 5.6 % Final [place] Diabetes Association guidelines indicate that patients with HgbA1c in the range 5.7-6.4% are at increased risk for development of diabetes, and intervention by lifestyle modification may be beneficial. HgbA1c greater or equal to 6.5% is considered diagnostic of diabetes. Estimated Average Glucose 06/18/2024 140 mg/dL Final eAG: (Estimated average glucose) is a calculated value from HgbA1c and is sales representative door to door of the average blood glucose level in the last 2-3 month period. Outside Data/Labs: I spent a total of 60 minutes on the date of the service which included preparing to see the patient, frca-jk-bvhm patient care, completing clinical documentation, obtaining and/or reviewing separately obtained history, performing a medically appropriate examination, counseling and educating the pat ient/family/caregiver, and ordering medications, tests, or procedures. Khris Salinas MD * Khris Salinas MD - 08/16/2024 12:41 PM EDT [facility] New Patient Evaluation Consulting Provider: Melani Zuniga [id number] [facility] [address] Individuals who were included in, or assisted with the encounter were: Judi Reece Toya Salinas MD Chief Complaint/Issues: Judi Pittman is a 79 year old female seen in the [facility] for: Neuropathy HPI: Judi is a [...] take regular pa in medication but uses jjrt-aod-mcxxktx pain relievers as needed, particularly at night to aid sleep. 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 She retired about five to six years ago. She does not endorse significantneck pain, reporting it occurs about once a month. She was recently evaluated by Dr. Mcguire at the [facility], who performed an EMG and [...] months ago, with an A1c of 6.8% [id number]. She also has a history of four aneurysms, the first of which was coiled in 2003 at the [facility]. She underwent additional procedures in 2004 [...] - Recent EMG performed on 07/20 at [facility]; will obtain records for review. - Diabetes mellitus type 2 is a known contributing factor; A1c has improved over time. - Ordered comprehensive fasting blood work to evaluate for additional causes of neuropathy, including vitamin deficiencies and autoimmune processes. - Advised patient to present to any [facility] facility for blood draw after an [...] lesions. - Referral to Dr. Zapata in [place] or [place] for further evaluation and management if needed. Recording using Post-i software for draft documentation of the visit was discussed with the patient/authorized sales representative door to door; all questions welcomed and answered. Patient/authorized sales representative door to door agreed to proceed Data Review Objective Current [...] Right OPEN TREATMENT,TRIMALLEOLAR ANKLE FRACTURE Right 05/29/2018 [facility] PICC LINE INSERT/CONSULT 01/23/2021 PICC LINE [...] 6.5 (H) 4.3 - 5.6 % Final [place] Diabetes Association guidelines indicate that patients with HgbA1c in the range 5.7-6.4% are at increased risk for development of diabetes, and intervention by lifestyle modification may be beneficial. HgbA1c greater or equal to 6.5% is considered diagnostic of diabetes. Estimated Average Glucose 06/18/2024 140 mg/dL Final eAG: (Estimated average glucose) is a calculated value from HgbA1c and is sales representative door to door of the average blood glucose level in the last 2-3 month period. Outside Data/Labs: I spent a total of 60 minutes on the date of the service which included preparing to see the patient, krjb-ki-hoxh patient care, completing clinical documentation, obtaining and/or reviewing separately obtained history, performing a medically appropriate examination, counseling and educating the pat ient/family/caregiver, and ordering medications, tests, or procedures. Khris Salinas MD documented in this encounterOhio Valley Hospital04-14-2025 History of Present illness Narrative* Fitz Brown PA-C - 08/09/2024 1:08 PM EDT This note was created using discoapiriter. Subjective Judi Pittman is a 79 year old female. Patient [...] options: gregg Brown PA-C documented in this encounterOhio Valley Hospital04-08-2025 Telephone encounter Note * Telephone Encounter - Salome Perez MSW - 08/03/2024 1:50 PM EDT Patient daughter Sade called and asked about local social service support agencies for older adults. Sw noted [facility] Older Adult resource guide. Discussed [employer] for in home assessmentto see what needs someone has and if they qualify for Passport/Caregiver Support program. Sw also noted [employer], [employer], and [employer]. Sade thanked this Sw for information and noted that she would review local [place] for older adult service agency information. [facility]04-08-[facility] Miscellaneous Notes* Telephone Encounter - Salome Perez MSW - 08/03/2024 1:50 PM EDT Patient daughter Sade called and asked about local social service support agencies for older adults. Sw noted [facility] Older Adult resource guide. Discussed [employer] for in home assessmentto see what needs someone has and if they qualify for Passport/Caregiver Support program. Sw also noted [employer], [employer], and [employer] [facility] [employer]. Sade thanked this Sw for information and noted that she would review local [place] for older adult service agency information. documented in this encounterOhio Valley Hospital03-26-2025 Telephone encounter Note * Telephone Encounter - Winnie Khanna RN - 07/21/2024 4:31 PM EDT Returned Sade, patient's daughter phone call. Informed that a consult was placed with general neurology. Patient appreciated phone call and the assistance. LAURITA Zhou [place] [address]-26-2025 Miscellaneous Notes* Telephone Encounter - Winnie Khanna RN - 07/21/2024 4:31 PM EDT Returned Sade, patient's daughter phone call. Informed that a consult was placed with general neurology. Patient appreciated phone call and the assistance. Winnie RN * Telephone Encounter - Saurabh Nam - 07/21/2024 1:35 PM EDT CV PHONE Name of caller : Sade Relationship to patient : Son/Daughter If not self Will need patient permission to release results or disclose health information with called documented in fyi. Patient identified by Name and Date of . ( Judi Pittman, 1945). Yes Number to return call [phone] Reason for Call: Patient Question/Update: Patient's daughter calling because patient she has severeneuropathy in feet and hands and wants to know the best provider recommendation. Asking for a call back at [phone] Thank you calling [facility]. You will receive a return call within 48hours ( or 2 business days if close to the weekend). If you feel that this is an urgent issue and needs immediate attention, it is recommended that you contact your primary care provider office or proceed to your nearest Urgent Care Center of Emergency Room ED for evaluation/treatment. documented in this encounterOhio Valley Hospital03-26-2025 Telephone encounter Note * Telephone Encounter - Saurabh Nam - 07/21/2024 1:35 PM EDT CV PHONE Name of caller : Sade Relationship to patient : Son/Daughter If not self Will need patient permission to release results or disclose health information with called documented in fyi. Patient identified by Name and Date of . ( Judi Pittman, 1945). 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 Asking for a call back at [phone] Thank you calling [facility]. You will receive a return call within 48hours ( or 2 business days if close to the weekend). If you feel that this is an urgent issue and needs immediate attention, it is recommended that you contact your primary care provider office or proceed to your nearest Urgent Care Center [facility] Emergency Room ED for evaluation/treatment. [facility] Progress note* Result Encounter Note - Bradford John APRN.CNS - 06/29/2024 9:24 AM EST A1c improved [facility]03-04-2025 Miscellaneous Notes* Result Encounter Note - Bradford John APRN.CNS - 06/29/2024 9:24 AM EST A1c improved documented in this encounterOhio Valley Hospital02-28-2025 Telephone encounter Note * Telephone Encounter - Salome Perez MSW - 06/25/2024 9:28 AM EST Rachid spoke with patient in regards to social work referral for home care and home health aides teacher options. Sw noted that she has [facility] Older Adult resource guide that has information such as home care and home health aides teacher, home delivered meals, assisted living information. Rachid also has flyers for [facility], [employer] that Rachid can mail to patient home as well. Patient noted would be helpful to have information and know what services are available in the community. [facility]02-28-[facility] Miscellaneous Notes* Telephone Encounter - Salome Perez MSW - 06/25/2024 9:28 AM EST Sw spoke with patient in regards to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 Valley Hospital08-27-2024 Telephone encounter Note * Telephone Encounter - Salome Perez MSW - 12/23/2023 1:56 PM EDT Rachid called and spoke with patient daughter Sade. Rachid noted that she has not found Medicare to pay for medical alert button. Medicaid often times will if someone is on Passport/Medicaid Waiver program. Rachid noted [facility] has listing of medical alert button options. Rachid provided daughter with [facility] AAA number [phone] to call and see about medical alert button listing. Sade thanked Rachid for the call and notes that she will reach out to [facility]. [facility]08-27-[facility] Telephone encounter Note* Telephone Encounter - Malu Calhoun RN - 12/23/2023 9:53 AM EDT Care Coordination Triage Note [facility] Situation: Patient reports Other emesis, falls, lightheadedness [...] Calhoun RN December 23, 2023 9:53 AM [facility]08-27-[facility] Telephone encounter Note* Telephone Encounter - Birgit Gonzalez LPN - 12/23/2023 9:50 AM EDT Daughter notified and routing this to RACHID Mcmahon to call daughter to give help on how to order and where to go for this. Birgit Gonzalez LPN [facility]08-26-2024 Telephone encounter Note* Telephone Encounter - [...] starting any new medications. Caryn Hernandez LPN [facility]08-26-2024 Telephone encounter Note* Telephone Encounter - Liliane Alcantara - 12/22/2023 12:45 PM EDT Patient called stating that she quit taking Aromasin 8 days ago due to vomiting. She read that she is to take the medication the same time every day and states she was not. She is asking if this is possibly what was making her sick. [facility] Work Phone: 1(706) 841-117708-26-2024 Telephone encounter Note* Telephone Encounter - Bradford John APRN.CNS - 12/22/2023 12:26 PM EDT Do not think these are covered but she can try. Order in. [facility]08-26-2024 Telephone encounter Note* Telephone Encounter - [...] this. Please advise daughter. Birgit Gonzalez LPN [facility]08-23-2024 Telephone encounter Note* Telephone Encounter - Bradford John APRN.CNS - 12/19/2023 11:03 AM EDT note below. [facility] Miscellaneous Notes* Telephone Encounter - Bradford Jhon APRN.CNS - 12/19/2023 11:03 AM EDT note [...] advise, Angélica Parkinson RN documented in this encounterOhio Valley Hospital08-23-2024 History of Present illness Narrative* Bradford John APRN.CNS - 12/19/2023 11:00 AM EDT SUBJECTIVE: Diabetic Foot Exam Never done DTaP,Tdap,Td Vaccine(1 - Tdap) Never done Shingrix Vaccine(1 of 2) Never done RSV Vaccine(1 - 1-dose 60+ series) Never done Pneumococcal Vaccine: 65+(2 of 2 - PCV) due on 05/04/2015 Covid-19 Vaccine(2022- season) due on 12/27/2022 HPI Judi Pittman is a 78 year old female. PMH [...] Neuropathy, Without Long-Term Current Use of Insulin ([facility]) History of Cva (Cerebrovascular Accident) Dyspepsia Closed [...] management and a possible life alert. Judi Pittman relates 2 falls in the recent past. [...] oncology providers know. She is followed by [facility] hematology oncology for breast cancer. Has been [...] daily. (Patient not taking: Reported on 09/05/2023) [id number] (GLUCOSAMINE CHONDROITIN PLUS) [id number] mg cap Take 1 capsule by mouth [...] Abs Lymph 1.00 - 4.00 k/uL 1.60 Navarro% % 8.3 Abs Navarro <0.87 k/uL 0.63 Eosin% % 2.8 Abs [...] V80.2, ICD10: Z13.5 She is followed by [facility]. 5. Encounter for immunization - ICD9: V03.89, [...] life alert or similar. Message sent via [employer]. Keep appointment with PCP in February. Will route chart to hematology oncology so they are aware not currently taking Aromasin. Bradford John APRN.CLEANING VALIDATION CONSULTANT Medical Decision Making: Problems: Moderate: New problem with uncertain prognosis and 2+ stable chronic illnesses Data: Unique test result(s) reviewed: 3+ Unique test(s) ordered: 1 Risk: Moderate: Drug management Medical Decision Making Level: 4 - Moderate documented in this encounterOhio Valley Hospital08-23-2024 Telephone encounter Note * Telephone Encounter [...] Please review and advise, Angélica Parkinson RN [facility]08-20-2024 History of Present illness Narrative* Charleen Johnson, PT - 12/16/2023 5:49 PM EDT Images from the original note were not included. Episode Visit Count: 14 Therapist That Will Accept/Oversee The Plan Of Care: Charleen Johnson Start of Care Date: 09/29/23 Onset Date: 01/22/21 Plan of Care Certification Date: 12/16/23 Next Certification Due Date: 01/27/24 REHABILITATION AND SPORTS THERAPY PHYSICAL THERAPY PROGRESS REPORT PLAN OF CARE UPDATE: Assessment: Judi Pittman demonstrates improvements in stair negotiation. She has [...] decreased fall risk. -- MET, 11 reps [place] in home exercise program including cardiovascular exercise. Patient will demonstrate independent and proper use of assisstive device to allow for improved walking quality and safety therefore reducing the risk of falls. -- MET Patient Goals: amb in her neighborhood or at the [facility] center with AD for 10-15 minutes -- MET NEW GOAL 11/03/23 score -- PARTIALLY MET Patient Goals: improve confidence with stair negociation using x1 HR and SC with or without reciprocal pattern. Planned Interventions, Frequency, and Duration: 1x/week, 6 weeks Total Number of Visits Planned: 6 Patient to be seen for Gait Training (81774), Self-usp management (51534), Therapeutic activities (28488), Manual therapy (10801), Neuromuscular re- education (53181), Therapeutic exercise (06735) PLAN FOR NEXT VISIT: amb in // [...] 1748 Session Stop Time : 1828 Charleen Johnson PT documented in this encounterOhio Valley Hospital08-12-2024 History of Present illness Narrative* Charleen Johnson, PT - 12/08/2023 12:29 PM EDT Episode Visit Count: 13 Therapist That Will Accept/Oversee The Plan Of Care: Charleen Johnson Start of Care Date: 09/29/23 Onset Date: 01/22/21 Plan of Care Certification Date: 11/26/23 Next Certification Due Date: 12/15/23 REHABILITATION AND SPORTS THERAPY PHYSICAL THERAPY TREATMENT NOTE ASSESSMENT: Judi Pittman tolerated the session with decreased symptoms. She [...] 1222 Session Stop Time : 1300 Charleen Johnson PT documented in this encounterOhio Valley Hospital07-31-2024 History of Present illness Narrative* Charleen Johnson PT - 11/26/2023 11:47 AM EDT Images from the original note were not included. Episode Visit Count: 12 Therapist That Will Accept/Oversee The Plan Of Care: Charleen AbdullahiMiguelCasper Start of Care Date: 09/29/23 Onset Date: 01/22/21 Plan of Care Certification Date: 11/26/23 Next Certification Due Date: 12/15/23 REHABILITATION AND SPORTS THERAPY PHYSICAL THERAPY PROGRESS REPORT PLAN OF CARE UPDATE: Assessment: Judi Pittman demonstrates improvements in rising from a chair, [...] decreased fall risk. -- MET, 11 reps [place] in home exercise program including cardiovascular exercise. Patient will demonstrate independent and proper use of assisstive device to allow for improved walking quality and safety therefore reducing the risk of falls. -- MET Patient Goals: amb in her neighborhood or at the [facility] center with AD for 10-15 minutes -- MET NEW GOAL 11/03/23 score -- PROGRESSING Patient Goals: improve confidence with stair negociation using x1 HR and SC with or without reciprocal pattern. Planned Interventions, Frequency, and Duration: 2x/week, 3 weeks Total Number of Visits Planned: 6 Patient to be seen for Gait Training (95140), Self-usp management (77686), Therapeutic activities (31014), Manual therapy (13998), Neuromuscular re- education (81548), Therapeutic exercise (77286) PLAN FOR NEXT VISIT: Pt. requests to [...] 1144 Session Stop Time : 1224 Charleen Johnson PT documented in this encounterOhio Valley Hospital07-30-2024 Telephone encounter Note * Telephone Encounter - Christa Sandoval RN - 11/25/2023 4:05 PM EDT Patient returned call and given provider's message below. Patient states she will try the nortriptyline 100 gm at bedtime. Zaid Sandoval RN [facility]07-30-2024 Miscellaneous Notes* Telephone Encounter - Christa Sandoval RN - 11/25/2023 4:05 PM EDT Patient returned call and given provider's message below. Patient states she will try the nortriptyline 100 gm at bedtime. Zaid Sandoval RN * Telephone Encounter - Joanna Templeton LPN - 11/25/2023 12:09 PM EDT Left message for patient to return call * Telephone Encounter - Bradford John APRN.VIOLETTE - 11/25/2023 11:46 AM EDT If she [...] advise. Marylin Camacho LPN documented in this encounterOhio Valley Hospital07-30-2024 Telephone encounter Note * Telephone Encounter - Joanna Templeton LPN - 11/25/2023 12:09 PM EDT Left message for patient to return call [facility]07-30-2024 Telephone encounter Note* Telephone Encounter - Bradford John APRN.CLEANING VALIDATION CONSULTANT - 11/25/2023 11:46 AM EDT If she is feeling well with the nortriptyline 75 mg we can try increasing to 100 mg at bedtime. Sheshould let us know if she does not feel well with the change and return back to 75 mg dosing. [facility]07-30-2024 Telephone encounter Note* Telephone Encounter - Marylin Camacho LPN - 11/25/2023 10:16 AM EDT Last OV: 09/08/23 Pt reports provider increased nortriptyline to 75 mg and that has helped her hands some. Pt is asking if medication can be increased to 100 mg to see if that would help more. Please review and advise. Marylin Camacho LPN [facility]07-29-2024 History of Present illness Narrative* Charleen Johnson, PT - 11/24/2023 12:17 PM EDT Episode Visit Count: 11 Therapist That Will Accept/Oversee The Plan Of Care: Charleen Johnson Start of Care Date: 09/29/23 Onset Date: 01/22/21 Plan of Care Certification Date: 11/03/23 Next Certification Due Date: 12/15/23 REHABILITATION AND SPORTS THERAPY PHYSICAL THERAPY TREATMENT NOTE ASSESSMENT: Judi Pittman tolerated the session with decreased symptoms. She demonstrated difficulty with LE BOSU ball taps with x1 UE support using SC. She had no trouble and reported this exercisefeeling easy with the // bar support. The patient will continue to benefit from ongoing skilled physical therapy to progress toward set goals. PLAN FOR NEXT VISIT: [facility] stepping, consider obstacle course SUBJECTIVE: Denies falls. Denies pain. Presents with SC Patient Goals: amb in her neighborhood or at the [facility] center with AD for 10-15 minutes Functional [...] 1213 Session Stop Time : 1253 Charleen Johnson PT documented in this encounterOhio Valley Hospital07-24-2024 History of Present illness Narrative* Charleen Johnson, PT - 11/19/2023 12:43 PM EDT Episode Visit Count: 10 Therapist That Will Accept/Oversee The Plan Of Care: Charleen Johnson Start of Care Date: 09/29/23 Onset Date: 01/22/21 Plan of Care Certification Date: 11/03/23 Next Certification Due Date: 12/15/23 REHABILITATION AND SPORTS THERAPY PHYSICAL THERAPY TREATMENT NOTE ASSESSMENT: Judi Pittman tolerated the session with fatigue and decreased [...] and gait belt. Patient education as noted. Nathanieling Therapeutic Exercise Treatment Minutes: 5 Neuromuscular Re-Education Treatment Minutes: 35 Skilled Treatment Time Minutes (timed and untimed codes): 40 Total Session Time (minutes): 40 Session Start Time : 1240 Session Stop Time : 1320 Charleen Johnson PT documented in this encounterOhio Valley Hospital07-22-2024 History of Present illness Narrative* Charleen Johnson PT - 11/17/2023 12:16 PM EDT Episode Visit Count: 9 Therapist That Will Accept/Oversee The Plan Of Care: Charleen Johnson Start of Care Date: 09/29/23 Onset Date: 01/22/21 Plan of Care Certification Date: 11/03/23 Next Certification Due Date: 12/15/23 REHABILITATION AND SPORTS THERAPY PHYSICAL THERAPY TREATMENT NOTE ASSESSMENT: Judi Pittman tolerated the session with no issues. She [...] amb in her neighborhood or at the [facility] center with AD for 10-15 minutes Functional [...] and tactile cueing. Patient education as noted. Self-Halfway Management: 1: discussed that fear of falling [...] 1220 Session Stop Time : 1300 Charleen Johnson PT documented in this encounterOhio Valley Hospital07-15-2024 History of Present illness Narrative* Jin Arellano, PT - 11/10/2023 12:31 PM EDT Episode Visit Count: 8 Therapist That Will Accept/Oversee The Plan Of Care: Charleen Johnson Start of Care Date: 09/29/23 Onset Date: 01/22/21 Plan of Care Certification Date: 11/03/23 Next Certification Due Date: 12/15/23 Patient Identified by Name and Date of : Yes REHABILITATION AND SPORTS THERAPY PHYSICAL THERAPY TREATMENT NOTE ASSESSMENT: uJdi Pittman tolerated the session with fatigue and expected [...] ARA Ba, PT, DPT. documented in this encounterOhio Valley Hospital07-11-2024 History of Present illness Narrative* Charleen Johnson, PT - 11/06/2023 10:58 AM EDT Episode Visit Count: 7 Therapist That Will Accept/Oversee The Plan Of Care: Charleen Johnson Start of Care Date: 09/29/23 Onset Date: 01/22/21 Plan of Care Certification Date: 11/03/23 Next Certification Due Date: 12/15/23 REHABILITATION AND SPORTS THERAPY PHYSICAL THERAPY TREATMENT NOTE ASSESSMENT: Judi Pittman tolerated the session with fatigue. She demonstrated [...] 1100 Session Stop Time : 1140 Charleen Johnson, PT documented in this encounterOhio Valley Hospital07-08-2024 History of Present illness Narrative* Charleen Johnson, PT - 11/03/2023 12:35 PM EDT Images from the original note were not included. Episode Visit Count: 6 Therapist That Will Accept/Oversee The Plan Of Care: Charleen Johnson Start of Care Date: 09/29/23 Onset Date: 01/22/21 Plan of Care Certification Date: 11/03/23 Next Certification Due Date: 12/15/23 REHABILITATION AND SPORTS THERAPY PHYSICAL THERAPY PROGRESS REPORT PLAN OF CARE UPDATE: Assessment: Judi Pittman demonstrates improvements in rising from a chair, [...] decreased fall risk. -- PROGRESSING, 9 reps [place] in home exercise program including cardiovascular exercise. [...] Patient to be seen for Gait Training (68723), Self-usp management (39572), Therapeutic activities (75427), Manual therapy (49606), Neuromuscular re- education (45031), Therapeutic exercise (96725) PLAN FOR NEXT VISIT: continue stepping over [...] amb in her neighborhood or at the [facility] with AD for 10-15 minutes Functional [...] 1230 Session Stop Time : 1308 Charleen Johnson PT documented in this encounterOhio Valley Hospital07-03-2024 History of Present illness Narrative* Charleen Johnson, PT - 10/29/2023 1:30 PM EDT Episode Visit Count: 5 Therapist That Will Accept/Oversee The Plan Of Care: Charleen Johnson Start of Care Date: 09/29/23 Onset Date: 01/22/21 Plan of Care Certification Date: 09/29/23 Next Certification Due Date: 11/03/23 REHABILITATION AND SPORTS THERAPY PHYSICAL THERAPY TREATMENT NOTE ASSESSMENT: Judi Pittman tolerated the session with fatigue. She demonstrated [...] amb in her neighborhood or at the [facility] with AD for 10-15 minutes Functional [...] 6x6 obstacles with SC 6x 20' with GARNETTER and SC (attempted with just SC and [...] 1322 Session Stop Time : 1400 Charleen Johnson PT documented in this encounterOhio Valley Hospital07-01-2024 History of Present illness Narrative* Charleen Johnson, PT - 10/27/2023 1:13 PM EDT Episode Visit Count: 4 Therapist That Will Accept/Oversee The Plan Of Care: Charleen Johnson Start of Care Date: 09/29/23 Onset Date: 01/22/21 Plan of Care Certification Date: 09/29/23 Next Certification Due Date: 11/03/23 REHABILITATION AND SPORTS THERAPY PHYSICAL THERAPY TREATMENT NOTE ASSESSMENT: Judi Pittman tolerated the session with fatigue. She demonstrated [...] 1313 Session Stop Time : 1351 Charleen Johnson PT documented in this encounterOhio Valley Hospital06-27-2024 Telephone encounter Note * Telephone Encounter [...] nap I've been fine. Paty Jason RN [facility]06-27-[facility] Miscellaneous Notes* Telephone Encounter - Paty [...] yesterday after nap I've been fine. Paty Jason, RN * Telephone Encounter - Kathryn Leavitt, LAURITA - 10/23/2023 2:17 PM EDT Attempted x [...] on pt. Sade states she lives in [place] but her brother lives in [place]. Sade will continue to try and call [...] today, 10/22/2023 for PT appointment with charleen Johnson due to SOB patient appointment was cancelled. [...] car. Christie Deleon LPN documented in this encounterOhio Valley Hospital06-27-2024 Telephone encounter Note * Telephone Encounter [...] on pt. Sade states she lives in [place] but her brother lives in [place]. Sade will continue to try and call her mother and contact her brother. She will call us back or have the pt call us. Explained to daughter that we can have the police go do a welfare check on her. She states she will get back to us. [facility]06-[facility] Telephone encounter Note* Telephone Encounter - Christie Deleon LPN - 10/22/2023 2:06 PM EDT Patient present to office today, 10/22/2023 for PT appointment with charleen Johnson due to SOB patient appointment was cancelled. [...] Patient walk to car. Christie Deleon LPN [facility] Work Phone: [phone] History of Present illness Narrative* Charleen Johnson, PT - 10/22/2023 12:24 PM EDT Pt. reports she feels very SOB upon entering clinic. Presents without SC. Carries a heavy bag. [id number] and instructed to take a seated rest. [...] and continues to refuse for PT or OFFICE MACHINES WIRER to call for assistance or medical attention. PT explains the concern with pt.Driving herself home and the possibility that she would have difficulty getting into her house safely. OFFICE MACHINES WIRER and PT assist pt. to w/c. Charleen Johnson PT, DPT documented in this encounterOhio Valley Hospital06-24-2024 History of Present illness Narrative* Charleen Johnson, PT - 10/20/2023 3:54 PM EDT Program_ID:[id number] Access Code: [email or web address] URL: [email or web address] Date: 10-20-2023 Prepared By: Charleen Johnson Program Notes Exercises - Seated Transversus Abdominis Bracing with PLB - 1 x daily - 7 x weekly - 4 sets - 10 reps * Charleen Johnson PT - 10/20/2023 3:16 PM EDT Episode Visit Count: 2 Therapist That Will Accept/Oversee The Plan Of Care: Charleen Johnson Start of Care Date: 09/29/23 Onset Date: 01/22/21 Plan of Care Certification Date: 09/29/23 Next Certification Due Date: 11/03/23 REHABILITATION AND SPORTS THERAPY PHYSICAL THERAPY TREATMENT NOTE ASSESSMENT: Judi Pittman tolerated the session with fatigue. She demonstrated [...] amb in her neighborhood or at the [facility] with AD for 10-15 minutes Pain: [...] % TREATMENT: Therapeutic Exercise: 1: *Access Code: [email or web address] URL: [email or web address] Date: 10/20/2023 Prepared by: Charleen Santos [...] belt and SC. Patient education as noted. Self-Halfway Management: 1: discussed at length the importance [...] 1516 Session Stop Time : 1556 Charleen Johnson PT documented in this encounterOhio Valley Hospital06-18-2024 History of Present illness Narrative* Angella Murray RT(R) - 10/14/2023 12:30 PM EDT Radiology Service Progress Note PATIENT NAME: Judi Pittman DATE OF SERVICE: October 14, 2023 TIME: [...] PATIENT PRESENTS WITH AN IMPLANTABLE OR ATTACHED LEAD MAN OVER ALL DIES IN PATTERN SHOP: No RADIOLOGY DEPARTMENT: General X-ray: Exam(s) Completed: Lower Extremity X- Ray(s): Ankle, Left and Foot, Left PERIPHERAL IV DATA: Not applicable SIGNED BY: RT Marco(R) October 14, 2023 12:15 PM documented in this encounterOhio Valley Hospital06-18-2024 History of Present illness Narrative* Ruiz Serrato, SHAHID.HSE MANAGER - 10/14/2023 12:05 PM EDT Subjective HPI [...] Right OPEN TREATMENT,TRIMALLEOLAR ANKLE FRACTURE Right 05/29/2018 [facility] PICC LINE INSERT/CONSULT 01/23/2021 PICC LINE [...] Take 81 mg by mouth once daily. oleu-obfls-nq2-fak-gcf-aptj-st (GLUCOSAMINE CHONDROITIN PLUS) [id number] mg cap Take 1 capsule by mouth [...] of care. This note was generated using [employer] software. It may contain errors in wording, punctuation, or spelling. Ruiz Serrato APRN.HSE MANAGER documented in this encounterOhio Valley Hospital06-18-2024 Telephone encounter Note * Telephone Encounter - Paola Duff LPN - 10/14/2023 7:26 AM EDT Encounter routed to PSS to assist patient in scheduling. [facility]06-[facility] Miscellaneous Notes* Telephone Encounter - Paola [...] pt. Please send in new orders to [facility]. Birgit Gonzalez LPN * Telephone [...] on CT abd/pel results. documented in this encounterOhio Valley Hospital06-17-2024 Telephone encounter Note * Telephone Encounter - Ruddy Cooper MD - 10/13/2023 4:56 PM EDT Filed order for PT [facility]06-14-[facility] Telephone encounter Note* Telephone Encounter - Birgit Gonzalez LPN - 10/10/2023 9:31 AM EDT No orders showing for the PSRs to schedule pt. Please send in new orders to [facility]. Birgit Gonzalez LPN [facility]06-13-20[facility] Telephone encounter Note* Telephone Encounter - Ruddy Cooper MD - 10/09/2023 5:14 PM EDT Patient already has a PT order according to [facility]. Does she need another order? [facility]06-[facility] Telephone encounter Note* Telephone Encounter - Paola Duff LPN - 10/03/2023 11:15 AM EDT Patient notified of providers message and verbalized understanding. Patient would like to pursue PT. Please place order [facility] Telephone encounter Note* Telephone Encounter - [...] Consider Physical therapy for evaluation and treatment. [facility] Telephone encounter Note* Telephone Encounter - Genia Ackerman RN - 10/02/2023 4:28 PM EDT Patient asking pcp to review and advise on CT abd/pel results. [facility]06-03-[facility] History of Present illness Narrative* Charleen Johnson, PT - 09/29/2023 2:19 PM EDT Program_ID:[id number] Access Code: [email or web address] URL: [email or web address] Date: 09-29-2023 Prepared By: Charleen Johnson Program Notes Exercises - Seated Heel Toe Raises - 2-3 x daily - 7 x weekly - 4 sets - 10 reps - Proper Sit to Stand Technique - 2-3 x daily - 7 x weekly - 3 sets - 5 reps - Seated Long Arc Quad - 2-3 x daily - 7 x weekly - 4 sets - 10 reps * Charleen Johnson, PT - 09/29/2023 1:53 PM EDT Episode Visit Count: 1 Therapist That Will Accept/Oversee The Plan Of Care: Charleen Johnson Start of Care Date: 09/29/23 Onset Date: 01/22/21 Plan of Care Certification Date: 09/29/23 Next Certification Due Date: 11/03/23 Patient Identified by Name and Date of : Yes REHABILITATION AND SPORTS THERAPY PHYSICAL THERAPY EVALUATION PLAN OF CARE: Assessment: Judi Pittman presents with diagnosis of gait difficulty and [...] more repetitions to reflect decreased fall risk. [place] in home exercise program including cardiovascular exercise. [...] Planned: 12 Planned Treatment Interventions: Gait Training (46668), Self-usp management (57133), Therapeutic activities (07797), Manual therapy (36539), Neuromuscular re-education (11150), Therapeutic exercise (84585) PLAN FOR NEXT VISIT: DGI and step [...] Demonstration TREATMENT: PT Treatment Interventions: Therapeutic Exercise, Self-Halfway Management Evaluation Therapeutic Exercise: 1: *Access Code: [email or web address] URL: [email or web address] Date: 09/29/2023 Prepared by: Charleen Santos [...] and function . Patient education as noted. Self-Halfway Management: 1: suggestd use of cane 2: [...] 1348 Session Stop Time : 1433 Charleen Johnson PT documented in this encounterOhio Valley Hospital05-31-2024 History of Present illness Narrative* Nelly Pacheco RT(R) - 09/26/2023 11:20 AM EDT Radiology Service Progress Note PATIENT NAME: Judi Pittman DATE OF SERVICE: September 26, 2023 TIME: [...] PATIENT PRESENTS WITH AN IMPLANTABLE OR ATTACHED LEAD MAN OVER ALL DIES IN PATTERN SHOP: No RADIOLOGY DEPARTMENT: CT; Exam(s) Completed: Abdomen/Pelvis PERIPHERAL IV DATA: Not applicable SIGNED BY: RT Julianna(R) September 26, 2023 4:16 PM documented in this encounterOhio Valley Hospital05-20-2024 Miscellaneous Notes* Telephone Encounter - Bradford John APRN.CNS - 09/15/2023 2:45 PM EDT ok [...] lisinopril from her list. documented in this encounterOhio Valley Hospital05-20-2024 Telephone encounter Note * Telephone Encounter - Bradford John APRN.CNS - 09/15/2023 2:45 PM EDT ok [facility] Telephone encounter Note* Telephone Encounter - [...] and please remove lisinopril from her list. [facility] History of Present illness Narrative* Raphael Perdomo, SHAHID.HSE MANAGER - 09/10/2023 1:26 PM EDT Chief Complaint Patient presents with: Established Patient HPI: Judi Pittman is a 78 year old female who [...] strongly ER+ in 99% of cells, strongly KS+ in 99% of cells, and HER2-negative (0 by IHC). Stereotactic biopsy of the right breast with clip placement performed 12/29/19 showed rare atypical intraductal epithelial cells. She was taking estrogen as Estrace. (Stopped November 2019). On 01/28/20 Ms. Pittman underwent excision of the right breast lesion [...] started this yet. Her BS today is [id number]. Appetite:Eh. Wt. stable. Energy level:Fair. Denies fevers [...] re- excision. It's ER positive (99%, strong), KS positive (99%, strong) and Her2/maria a 0. [...] visit. Raphael Perdomo APRN.CNP documented in this encounterOhio Valley Hospital05-13-2024 Instructions* Patient Instructions* Bradford John APRN.CNS - 09/08/2023 1:45 PM EDT Make [...] diarrhea with this medication. documented in this encounterOhio Valley Hospital05-13-2024 History of Present illness Narrative* Bradford John APRN.CNS - 09/08/2023 1:20 PM EDT SUBJECTIVE: Dilated Retinal Exam Never done Diabetic Foot Exam Never done DTaP,Tdap,Td Vaccine(1 - Tdap) Never done Shingrix Vaccine(1 of 2) Never done RSV Vaccine(1 - 1-dose 60+ series) Never done Pneumococcal Vaccine: 65+(2 of 2 - PCV) due on 05/04/2015 Covid-19 Vaccine(2022-24 season) due on 12/27/2022 Advance Directive Discussion due on 04/28/2023 HPI Judi Pittman is a 78 year old female. PMH [...] surgery was a tummy tuck completed at [facility] in [place]. She is followed by [facility] hematology oncology for breast cancer, last seen [...] Take 81 mg by mouth once daily. vjeq-rpauz-ey9-wsc-jar-lgip-st (GLUCOSAMINE CHONDROITIN PLUS) [id number] mg cap Take 1 capsule by mouth [...] score (Natividad DK, et al., 2019) is: 43.9% Values used [...] PNEUMOCOCCAL VACCINE, 20 VALENT (PREVNAR 20) - [employer] COVID-19 VACCINE (2022- SEASON) AGE 12+ YR [...] vomiting or diarrhea with this medication. Bradford John APRN.CLEANING VALIDATION CONSULTANT Medical Decision Making: Problems: Moderate: New problem with uncertain prognosis and 2+ stable chronic illnesses Data: Unique test(s) ordered: 1 Risk: Moderate: Drug management Medical Decision Making Level: 4 - Moderate documented in this encounterOhio Valley Hospital02-16-2024 Miscellaneous Notes* Telephone Encounter - Genia [...] pt. Birgit Gonzalez LPN documented in this encounterOhio Valley Hospital01-29-2024 Instructions* Patient Instructions* Ruddy Cooper MD - 05/26/2023 4:55 PM EST Topical magnesium and oral magnesium can help with muscle cramping. Theraworx is one of the brands. Avoid bending from the back--bend from hips so not shortening the abdominal muscles. Do stretching exercises for abdominal muscles. documented in this encounterOhio Valley Hospital01-29-2024 History of Present illness Narrative* Ruddy Cooper MD - 05/26/2023 4:06 PM EST This note was created using [employer]. Subjective Judi Pittman is a 78 year old female. Patient presents with: 3 mo follow up SUBJECTIVE: Judi Pittman is a 78 year old year old [...] Take 100 mcg by mouth once daily. swbi-vxmln-xk8-amt-lva-iedb-st (GLUCOSAMINE CHONDROITIN PLUS) [id number] mg cap Take 1 capsule by mouth [...] the date of the service which included [id number]-fxhg patient care, completing clinical documentation, obtaining and/or reviewing separately obtained history, performing a medically appropriate examination, counseling and educating the patient/family/caregiver, ordering medications, tests, or procedures, independently interpreting results (not separately reported), and communicating results to the patient/family/caregiver. Ruddy Cooper MD documented in this encounterOhio Valley Hospital12-07-2023 History of Present illness Narrative* Sarah Lloyd LPN - 04/03/2023 2:04 PM EST Est. Pt. Discuss recent labs 6 month F/U Sarah Lloyd LPN * Raphael Perdomo APRN.HSE MANAGER - 04/03/2023 1:45 PM EST Chief Complaint Patient presents with: Established Patient HPI: Judi Pittman is a 78 year old female who [...] strongly ER+ in 99% of cells, strongly KS+ in 99% of cells, and HER2-negative (0 by IHC). Stereotactic biopsy of the right breast with clip placement performed 12/29/19 showed rare atypical intraductal epithelial cells. She was taking estrogen as Estrace. (Stopped November 2019). On 01/28/20 Ms. Pittman underwent excision of the right breast lesion [...] re- excision. It's ER positive (99%, strong), KS positive (99%, strong) and Her2/maria a 0. [...] visit. Raphael Perdomo APRN.DESIRAE documented in this encounterOhio Valley Hospital11-14-2023 Miscellaneous Notes* Telephone Encounter - Melani [...] point. Melani Zuniga RN documented in this encounterOhio Valley Hospital11-02-2023 History of Present illness Narrative* Julianne Longoria RT(R) - 02/27/2023 11:20 AM EDT Radiology [...] gauge. RADIOLOGY DEPARTMENT: MR; Exam(s) Completed: Head: [facility] MRA SIGNATURE: RT Bridget(R) PATIENT NAME: Judi Pittman DATE: February 27, 2023 TIME: 12:12 PM documented in this encounterOhio Valley Hospital11-01-2023 Miscellaneous Notes* Telephone Encounter - Beronica Navarro - 02/26/2023 10:29 AM EDT Patient scheduled. Closing encounter. * Telephone Encounter - Kiana Mcpherson LPN - 02/26/2023 10:18 AM EDT Detailed message left for patient to call office need to scheduled the next two 3 month follow up appointments with Dr. Cooper. documented in this encounterOhio Valley Hospital09-08-2023 NoteIMPRESSION: INCOMPLETE: NEEDS ADDITIONAL IMAGING EVALUATION [...] made to exams dated: 07/24/2022 mammogram - [facility], [facility]20[facility], and [facility]28[facility]2020 [facility] - [facility]. Real-time ultrasound of the right breast was [...] Health, Family Medicine, and Medical/Surgical Oncology, the [facility] has carefully reviewed the data and [...] their providers when to stop screening mammograms. Oil Changer(s): Samaria Sierra, RT(R)(M), [facility], [facility]; Apurva Kelley, RT(R)(M), [facility], [facility] OVERALL STUDY BIRADS: 2 Benign finding Watch Manufacturing Supervisor: Nate Transcribe Date/Time: Jan 03 2023 12:19P Dictated by: ENRIKE BETTS MD This examination was interpreted and the report reviewed and electronically signed by: ENRIKE BETTS MD on Jan 03 2023 2:33PM [facility] DIVISION OF [id number] NoteIMPRESSION: INCOMPLETE: NEEDS ADDITIONAL IMAGING EVALUATION The [...] made to exams dated: 07/24/2022 mammogram - [facility], 11/29/2021 [facility], and 11/28/2020 [facility] - [facility] [...] Health, Family Medicine, and Medical/Surgical Oncology, the [facility] has carefully reviewed the data and [...] their providers when to stop screening mammograms. Oil Changer(s): Samaria Sierra RT(R)(M), [facility], [facility]; RT Miriam(R)(M), [facility], [facility] OVERALL STUDY BIRADS: 2 Benign finding Watch Manufacturing Supervisor: Nate Transcribe Date/Time: Jan 03 2023 12:19P Dictated by: ENRIKE BETTS MD This examination was interpreted and the report reviewed and electronically signed by: ENRIKE BETTS MD on Jan 03 2023 2:33PM [facility] DIVISION OF [id number] History of Present illness Narrative* Apurva Kelley Tech - 01/03/2023 1:00 PM EDT Radiology Service Progress Note PATIENT NAME: Judi Pittman DATE OF SERVICE: January 03, 2023 TIME: [...] 03, 2023 1:18 PM documented in this encounterOhio Valley Hospital08-29-2023 History of Present illness Narrative* Sheela Celeste PA-C - 12/24/2022 9:30 AM EDT MEDICAL BREAST PATIENT NAME: Judi Pittman HISTORY of PRESENT ILLNESS: Judi Pittman is a 77 year old year old postmenopausal female who [facility] [place] today for follow up. 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 12/29/2019 she went on to a [...] did not receive adjuvant chemotherapy. 03/01/2020: Judi Pittman's Common Hereditary Cancers Panel through [employer] was negative for a deleterious mutation. A [...] Right OPEN TREATMENT,TRIMALLEOLAR ANKLE FRACTURE Right 05/29/2018 [facility] PICC LINE INSERT/CONSULT 01/23/2021 PICC LINE [...] Take 1 capsule by mouth once daily. wdlt-tqwrc-ux1-wen-kyw-lwpz-st (GLUCOSAMINE CHONDROITIN PLUS) [id number] mg cap Take 1 capsule by mouth [...] on for same day imaging at [facility] [place] today and therefore her imaging will be scheduled at the soonest available appointment. There are scattered fibroglandular densities. Assessment IMPRESSION/PLAN: Judi Pittman is a 77 year old year old [...] location preference, she will be scheduled in [place] for first available diagnostic imaging appointment. If imaging is negative/benign, she will follow up with Raphael Perdomo 02/2023 asscheduled. She will then be seen by Wesly Sepulveda (at [facility]) in one year for her annual exam. She will call me in the interim should she have any questions or concerns. I spent a total of 35 minutes on the date of the service which included preparing to see the patient, kcma-or-jowe patient care, completing clinical documentation, performing a medically appropriate examination, counseling and educating the patient/family/caregiver, and ordering medications, tests,or procedures. Sheela Celeste PA-C Medical Breast Specialist CC: Ruddy Cooper [address] [place] [address] documented in this encounterOhio Valley Hospital08-29-2023 Instructions* Patient Instructions* Lisbet Landry LPN [...] TP53, CDH1, STK11, PALB2, CHEK2, BRAIN) Per [facility] High Risk Care Path recommendations, screening [...] 10% of all breast cancers in the are due to inherited genetic mutations. BRCA [...] male breast cancer you are of Ashkenazi Gnosticist descent HEALTHY LIFESTYLE MANAGEMENT (per NCCN Guidelines [...] include but are not limited to: [facility] Comprehensive Breast Cancer Program - my.[facility].org/services/aelzdn-rqsgsc-zoxgebs [facility] - komennesumitio.org [employer] [employer] - cancer.org SONI Breast Cancer Foundations - jdbcfoundation.org FORCE - facingourrisk.org [place] - brightpink.org Young Survival Coalition - youngsurvival.org 4th Lul - 4thangel.org [facility] - touchedbycancer.org ([place] and [place]) [facility] - theMeilimeitorycenter.org ([place] area) [facility] [place] - yellowbrickplace.org ([place] area) [facility] - stewartscaringplace.org ([place] area) If you would like to compliment one of our caregivers you encountered today, you may do so at [email or web address]. Thank you ! documented in this encounterOhio Valley Hospital08-29-2023 Nurse Note* Lisbet Landry LPN - 12/24/2022 9:17 AM EDT Last mammogram on: 11/29/2021 Results: See Report Is the patient active on [employer] Yes Electronically Signed By: Lisbet Landry LPN [...] Right OPEN TREATMENT,TRIMALLEOLAR ANKLE FRACTURE Right 05/29/2018 [facility] PICC LINE INSERT/CONSULT 01/23/2021 PICC LINE INSERT/CONSULT 01/29/2021 REMV CATARACT EXTRACAP,INSERT LENS Bilateral SHX CRANIOTOMY Left 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 Bahena Social History Tobacco Use Smoking status: Never Smokeless tobacco: Never Vaping Use Vaping Use: Never used Substance Use Topics Alcohol use: No Drug use: Never documented in this encounterOhio Valley Hospital08-28-2023 Miscellaneous Notes* Telephone Encounter - Melani Zuniga RN - 12/23/2022 9:53 AM EDT Mychart unread. Will send letter. Melani Zuniga RN documented in this encounterOhio Valley Hospital08-10-2023 Miscellaneous Notes* Telephone Encounter - Kay Madden RN - 12/05/2022 4:06 PM EDT Spoke with patient, she is aware of Rx. Questions answered. 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 documented in this encounterOhio Valley Hospital08-01-2023 Miscellaneous Notes* Telephone Encounter - Marylin Camacho LPN - 11/26/2022 9:24 AM EDT Pt notified of results and provider message. Pt voiced understanding. Marylin Camacho LPN * Telephone Encounter - Paty Jaosn, RN - 11/25/2022 4:00 PM EDT Spoke [...] CALL OFFICE. * Telephone Encounter - Bradford John APRN.CNS - 11/22/2022 3:59 PM EDT Please [...] Lymph 1.00 - 4.00 k/uL 1.77 1.60 Navarro% % 8.8 8.3 Abs Navarro <0.87 k/uL 0.86 0.63 Eosin% % 2.0 [...] ng/mL 28.2 (L) 43.4 documented in this encounterOhio Valley Hospital06-23-2023 History of Present illness Narrative* Bradford John APRN.CNS - 10/18/2022 1:20 PM EDT SUBJECTIVE: DILATED RETINAL EXAM Never done DIABETIC FOOT EXAM Never done DTAP,TDAP,TD(1 - Tdap) Never done SHINGRIX VACCINE(1 of 2) Never done ADVANCE DIRECTIVE DISCUSSION due on 04/28/2022 HBA1C due on 09/26/2022 HPI Judi Pittman is a 77 year old female. PMH [...] from previous visits: She was admitted to [facility] neurosurgery service for recurrent left SCA aneurysm, subarachnoid hemorrhage January 22 through February 02, 2021. She was admitted to [facility] February 02 through February 27, 2021. Past [...] at the inpatient acute rehab unit at [facility] on February 02, 2021. On arrival [...] appointments with [facility] endovascular neurology and [facility] hematology oncology.She was also advised to follow-up with Dr. Cooper following discharge from [facility]. Seen in [facility] emergency department yesterday for abdominal discomfort and tachycardia, worsening breathing issues. CT completed of chest and abdomen negative for PE no acute process in abdomen CBC and CMPwere in acceptable range. Urinalysis negative. COVID-19 testing negative. She was discharged home with reassurance and advised close follow-up. Presents today with her son and significant other. Was at half-way for about 5 days and discharge. 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 Status post partial mastectomy and Austin to left breast irradiation. 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 Surgeon: Dr. Erik Courtney Location: [facility] orthopedic [facility] Anesthesia: General Pre-op visit or labs: Outpatient. No lab work, states no anesthesia visit. CP: no SOB: no Functional capacity: stable, able to take 2 [address] of stair and walk a flat surface without chest pain or shortness of breath on exertion. 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 Has been seen by Dr. Jones neurosurgery regarding known residual aneurysm. MRA was completed 2021. He recommended an MRA in 1 year. Presents today with concern regarding lisinopril as possible because of prior kidney stone. No current flank or back pain. She was seen by Dr. Maki at [facility] August 2021 for hydronephrosis with renal and [...] Take 1 capsule by mouth once daily. qqqn-qfquc-oi5-ray-kui-pdgv-st (GLUCOSAMINE CHONDROITIN PLUS) [id number] mg cap Take 1 capsule by mouth [...] following reasons: The patient has a prior NE or stroke diagnosis Component Latest Ref Rng [...] Abs Lymph 1.00 - 4.00 k/uL 1.77 Navarro% % 8.8 Abs Navarro <0.87 k/uL 0.86 Eosin% % 2.0 Abs [...] Ruddy Cooper MD with labs prior Bradford John APRN.CLEANING VALIDATION CONSULTANT Medical Decision Making: Problems: Low: Stable chronic illness Risk: Moderate: Drug management Medical Decision Making Level: 3 - Low documented in this encounterOhio Valley Hospital06-22-2023 Miscellaneous Notes* Telephone Encounter - Paty [...] EDT Looks like had calcium oxalate stones ([facility] stone analysis). Check [employer] to see if [...] Patient uses [facility] documented in this encounterOhio Valley Hospital06-16-2023 Miscellaneous Notes* Telephone Encounter - Maryam [...] a new med. And wants sent to [facility] pharmacy. Sarah Samuel LPN * Telephone Encounter - Raphael Perdomo APRN.DESIRAE - 10/10/2022 12:33 PM EDT Would she be willing to try a different medication? Raphael Perdomo APRN.HSE MANAGER * Telephone Encounter - Cheryl Winchester RN [...] to resume this medication. documented in this encounterOhio Valley Hospital05-10-2023 Miscellaneous Notes* Telephone Encounter - Nicole [...] Thank you. Denisse Murray documented in this encounterOhio Valley Hospital05-03-2023 Miscellaneous Notes* Telephone Encounter - Jhoana Tian LPN - 08/28/2022 11:54 AM EDT Patient is going to call [facility]'s pharmacy, she has refils on Lisinopril & [...] Thank you. Denisse Murray documented in this encounterOhio Valley Hospital04-11-2023 Miscellaneous Notes* Telephone Encounter - Angélica Parkinson RN - 08/06/2022 11:54 AM EDT Last Office Visit: 06/27/2022 Future Office Visit: 11/22/2022 Requested Prescriptions Pending Prescriptions Disp Refills lisinopril (ZESTRIL) 10 mg tablet 90 tablet 3 Sig: Take 1 tablet by mouth once daily. Date of Last Labs: 03/28/2022 documented in this encounterOhio Valley Hospital03-29-2023 Miscellaneous Notes* Letter - Mammography Coordinator - 07/24/2022 11:39 AM EDT July 25, 2022 PID: [id number] Judi Pittman [address] [place] [address] Dear Ms. Pittman, We are pleased to inform you that [...] report will be [facility] as part of your permanent medical record and are available for your continuing care. Thank you for allowing us to help in meeting your health care needs. Sincerely, Dr. Godinez Interpreting Radiologist [facility] (Normal-Clinical Evaluation) documented in this encounterOhio Valley Hospital03-29-2023 History of Present illness Narrative* Paola Peng, RT(R) - 07/24/2022 11:30 AM EDT Radiology Service Progress Note PATIENT NAME: Judi Pittman DATE OF SERVICE: July 24, 2022 TIME: [...] 24, 2022 11:14 AM documented in this encounterOhio Valley Hospital03-02-2023 History of Present illness Narrative* Bradford John APRN.CLEANING VALIDATION CONSULTANT - 06/27/2022 11:39 AM EST SUBJECTIVE: DILATED RETINAL EXAM Never done DIABETIC FOOT EXAM Never done DTAP,TDAP,TD(1 - Tdap) Never done SHINGRIX VACCINE(1 of 2) Never done ADVANCE DIRECTIVE DISCUSSION due on 04/28/2022 HPI Judi Pittman is a 77 year old female. PMH [...] from previous visits: She was admitted to [facility] neurosurgery service for recurrent left SCA aneurysm, subarachnoid hemorrhage January 22 through February 02, 2021. She was admitted to [facility] February 02 through February 27, 2021. Past [...] at the inpatient acute rehab unit at [facility] on February 02, 2021. On arrival [...] appointments with [facility] endovascular neurology and [facility] hematology oncology.She was also advised to follow-up with Dr. Cooper following discharge from [facility]. Seen in [facility] emergency department yesterday for abdominal discomfort and tachycardia, worsening breathing issues. CT completed of chest and abdomen negative for PE no acute process in abdomen CBC and CMPwere in acceptable range. Urinalysis negative. COVID-19 testing negative. She was discharged home with reassurance and advised close follow-up. Presents today with her son and significant other. Was at half-way for about 5 days and discharge. 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 Status post partial mastectomy and Austin to left breast irradiation. 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 Surgeon: Dr. Erik Courtney Location: [facility] orthopedic [facility] Anesthesia: General Pre-op visit or labs: Outpatient. No lab work, states no anesthesia visit. CP: no SOB: no Functional capacity: stable, able to take [address] stair and walk a flat surface without chest pain or shortness of breath on exertion. 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 [...] Take 1 capsule by mouth once daily. kzwy-yngbd-fk7-thr-ubl-lbwe-st (GLUCOSAMINE CHONDROITIN PLUS) [id number] mg cap Take 1 capsule by mouth [...] following reasons: The patient has a prior NE or stroke diagnosis Component Latest Ref Rng [...] Abs Lymph 1.00 - 4.00 k/uL 1.77 Navarro% % 8.8 Abs Navarro <0.87 k/uL 0.86 Eosin% % 2.0 Abs [...] Ruddy Cooper MD with labs prior Bradford John APRN.CNS Medical Decision Making: Problems: Moderate: 2+ stable chronic illnesses Data: Unique test(s) ordered: 3+ Risk: Moderate: Drug management Medical Decision Making Level: 4 - Moderate documented in this encounterOhio Valley Hospital01-27-2023 History of Present illness Narrative* Raphael Perdomo APRN.HSE MANAGER - 05/24/2022 12:54 PM EST Chief Complaint Patient presents with: Established Patient HPI: Judi Pittman is a 77 year old female who [...] strongly ER+ in 99% of cells, strongly KS+ in 99% of cells, and HER2-negative (0 by IHC). Stereotactic biopsy of the right breast with clip placement performed 12/29/19 showed rare atypical intraductal epithelial cells. She was taking estrogen as Estrace. (Stopped November 2019). On 01/28/20 Ms. Pittman underwent excision of the right breast lesion [...] re- excision. It's ER positive (99%, strong), KS positive (99%, strong) and Her2/maria a 0. [...] visit. Raphael Perdomo APRN.DESIRAE documented in this encounterOhio Valley Hospital12-29-2022 Miscellaneous Notes* Telephone Encounter - Birgit [...] Please let patient know. documented in this encounterOhio Valley Hospital12-05-2022 Miscellaneous Notes* Telephone Encounter - To Sierra - 04/01/2022 11:07 AM EST Spoke with patient and rescheduled date per her request. * Telephone Encounter - Raphael Perdomo APRN.CNP - 04/01/2022 9:51 AM EST Please move it out once she has recovered. Thank you. Raphael Perdomo APRN.DESIRAE * Telephone Encounter - To Sierra - 04/01/2022 8:45 AM EST Scheduled for [...] Please advise the patient. documented in this encounterOhio Valley Hospital12-01-2022 Instructions* Patient Instructions* Bradford John APRN.CNS - 03/28/2022 2:36 PM EST Check preop lab work today. Follow your surgeons instructions regarding surgery. Increase nortriptyline from 25 mg to 50 mg daily Take two 25 mg daily at bedtime until gone Then take one 50 mg tablet at bedtime documented in this encounterOhio Valley Hospital12-01-2022 History of Present illness Narrative* Bradford John APRN.CNS - 03/28/2022 2:00 PM EST SUBJECTIVE: [...] ALBUMIN:CREATININE RATIO due on 01/25/2022 HPI Judi Pittman is a 77 year old female. PMH [...] Neuropathy, Without Long-Term Current Use of Insulin ([facility]) History of Cva (Cerebrovascular Accident) Dyspepsia Closed [...] from previous visit: She was admitted to [facility] neurosurgery service for recurrent left SCA aneurysm, subarachnoid hemorrhage January 22 through February 02, 2021. She was admitted to [facility] February 02 through February 27, 2021. Past [...] at the inpatient acute rehab unit at [facility] on February 02, 2021. On arrival [...] home with scheduled appointments with [facility] neurology and [facility] hematology oncology.She was also advised to follow-up with Dr. Cooper following discharge from [facility]. Seen in [facility] emergency department yesterday for abdominal discomfort and tachycardia, worsening breathing issues. CT completed of chest and abdomen negative for PE no acute process in abdomen CBC and CMPwere in acceptable range. Urinalysis negative. COVID-19 testing negative. She was discharged home with reassurance and advised close follow-up. Presents today with her son and significant other. Was at half-way for about 5 days and discharge. 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 Status post partial mastectomy and Austin to left breast irradiation. 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 Surgeon: Dr. Erik Courtney Location: [facility] Anesthesia: General Pre-op visit or labs: Outpatient. No lab work, states no anesthesia visit. CP: no SOB: no Functional capacity: stable, able to take [address] and walk a flat surface without chest pain or shortness of breath on exertion. 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 Age Group: [...] A & D ORAL) Take by mouth. omec-yimyn-wn5-xcv-dve-jjvz-st (GLUCOSAMINE CHONDROITIN PLUS) [id number] mg cap Take 1 capsule by mouth [...] at bedtime 3 mo follow up Bradford John APRN.CLEANING VALIDATION CONSULTANT 6 mo follow up MD Bradford Quiroz APRN.CLEANING VALIDATION CONSULTANT Medical Decision Making: Problems: Moderate: 2+ stable chronic illnesses Data: Unique test(s) ordered: 3+ Risk: Moderate: Drug management and Decision on elective major surgery w/o risk factors Medical Decision Making Level: 4 - Moderate documented in this encounterOhio Valley Hospital10-24-2022 History of Present illness Narrative* Julianne [...] 24gauge. RADIOLOGY DEPARTMENT: MR; Exam(s) Completed: Head: [facility] MRA SIGNATURE: RT Bridget(Huy) PATIENT NAME: Judi Pittman DATE: February 18, 2022 TIME: 12:21 PM documented in this encounterOhio Valley Hospital09-19-2022 Miscellaneous Notes* Telephone Encounter - Monae Muhammad RN - 01/14/2022 1:00 PM EDT [facility] informed me that they had not received everything. In fact, they have nothing. I have printed the last few years plus the imaging reports for the past 10 years. I am going to fax them to [facility]. [phone] * Telephone Encounter - Monae Muhammad RN - 01/14/2022 10:42 AM EDT Spoke with patient who has concerns about getting imaging and reports from us to [facility]. She is going there for a 2nd opinion. I called [facility], Dr. Courtney, to see if they had received everything. However, I had to leave a voicemail. I told them to follow up with me if they did not receive. documented in this encounterOhio Valley Hospital09-12-2022 Miscellaneous Notes* Telephone Encounter - Abiola Deleon - 01/07/2022 8:41 AM EDT Patient called and asked if she had radiation for breast cancer could she still have inplants put in? She would like a call back to further discuss. documented in this encounterOhio Valley Hospital08-25-2022 History of Present illness Narrative* Julianne [...] CARE PLAN OF CARE UPDATE: Assessment: Judi Pittmna is discontinued from Physical Therapy services due to maximal benefit.. Patient was seen for 13 visits from Start of Care Date: 10/31/21 to 12/20/2021 and treatment included: Therapeutic exercise, Neuromuscular re-education, Self-usp management, and Patient/Family/Car egiver Education. Goals for Episode of Care: created on 10/31/21 through 01/09/22 updated 12/19/21 Improve right LE alignment for gait pattern / partially achieved [place] in home exercise program.. achieved Patient will [...] 40 Julianne Saab PT documented in this encounterOhio Valley Hospital08-22-2022 History of Present illness Narrative* Julianne [...] THERAPY PHYSICAL THERAPY TREATMENT NOTE ASSESSMENT: Judi Pittman tolerated the session with no issues. She [...] 41 Julianne Saab PT documented in this encounterOhio Valley Hospital08-19-2022 Miscellaneous Notes* Telephone Encounter - Melani [...] Name and Date of . ( Judi Pittman, 1945). Yes Number to return call Reason for Call : Patient is calling regarding her Angiogram. She is inquiring about whether the pins in her foot once she has her surgery will be a issue for the test. Patient also is wondering if it is necessary for her to get Angio. Thank you calling [facility] [place]. You will receive a return call within 48hours ( or 2 business days if close to the weekend). If you feel that this is an urgent issue and needs immediate attention, it is recommended that you contact your primary care provider office or proceed to your nearest Urgent Care Center of Emergency Room ED for evaluation/treatment. documented in this encounterOhio Valley Hospital08-18-2022 Miscellaneous Notes* Telephone Encounter - Melani Zuniga RN - 12/13/2021 1:52 PM EDT Faxed. Melani Zuniga RN * Telephone Encounter - Melani Zuniga RN - 12/05/2021 3:39 PM EDT Forwarded to Dr. Jones for signature. Melani Zuniga RN documented in this encounterOhio Valley Hospital08-17-2022 History of Present illness Narrative* Julianne [...] THERAPY PHYSICAL THERAPY TREATMENT NOTE ASSESSMENT: Judi Pittman tolerated the session with no issues. She [...] 38 Julianne Saab PT documented in this encounterOhio Valley Hospital08-15-2022 History of Present illness Narrative* Julianne [...] THERAPY PHYSICAL THERAPY TREATMENT NOTE ASSESSMENT: Judi Pittman tolerated the session with no issues. She [...] 35 Julianne Saab PT documented in this encounterOhio Valley Hospital08-10-2022 History of Present illness Narrative* Charleen Johnson, PT - 12/05/2021 2:55 PM EDT Episode Visit Count: 9 Therapist That Will Oversee The Plan Of Care: Julianne Saab Start of Care Date: 10/31/21 Onset Date: 09/26/21 Plan of Care Certification Date: 10/31/21 Next Certification Due Date: 01/09/22 Patient Identified by Name and Date of : Yes REHABILITATION AND SPORTS THERAPY PHYSICAL THERAPY TREATMENT NOTE ASSESSMENT: Judi Pittman tolerated the session with fatigue. She demonstrated [...] 12 Total Treatment Time Minutes (timed/untimed): 35 Nunu Luz, LATIN PROFESSOR Charleen Johnson PT documented in this encounterOhio Valley Hospital08-09-2022 Miscellaneous Notes* Telephone Encounter - Jake Carias MD - 12/04/2021 12:57 PM EDT Patient's request for medication is as follows Requested Prescriptions Signed Prescriptions Disp Refills anastrozole (ARIMIDEX) 1 mg tablet 90 tablet 3 Sig: Take 1 tablet by mouth once daily. Authorizing Provider: JAKE CARIAS Order entered - please phone pharmacy and notify patient. Jake Carias MD * Telephone Encounter - Christa Elizabeth [...] and advise. Christa Sierra documented in this encounterOhio Valley Hospital08-08-2022 Miscellaneous Notes* Telephone Encounter - Monae Mccormack RN - 12/03/2021 2:22 PM EDT Images from the original note were not included. Patient Angiogram Instructions Diagnostic Angiogram Instructions for your procedure on 01/25/22 Prior to Procedure Complete Labs as ordered-- may do at local facility - If labs not completed at a [facility] please fax to: [phone] - You do not need to fast before your labs Set-up a reliable recycling collections driver to bring you and take you home after your procedure. Day Before Procedure If you have not received a phone call with your arrival time by the day before your procedure, please call [phone]. Night Before procedure No eating any solid [...] OF PROCEDURE Procedure will be completed at [address] Angiogram Details What is an angiogram? [...] office. Nights and weekends, you can call [phone] or and ask for the neurosurgery resident confidential investigator for more urgent questions. If you have [...] Sincerely, Your Cerebrovascular Team documented in this encounterOhio Valley Hospital08-08-2022 History of Present illness Narrative* Monae Mccormack RN - 12/03/2021 1:34 PM EDT Schedule 1 yr f/u cerebral angiogram w/Dr Zaragoza or covering physician -- see orders and surgical request. documented in this encounterOhio Valley Hospital08-08-2022 History of Present illness Narrative* Charleen Johnson, PT - 12/03/2021 1:26 PM EDT Episode Visit Count: 8 Therapist That Will Oversee The Plan Of Care: Julianne Saab Start of Care Date: 10/31/21 Onset Date: 09/26/21 Plan of Care Certification Date: 10/31/21 Next Certification Due Date: 01/09/22 Patient Identified by Name and Date of : Yes REHABILITATION AND SPORTS THERAPY PHYSICAL THERAPY TREATMENT NOTE ASSESSMENT: Judi Pittman tolerated the session with no issues. She [...] 40 ARA Frazier PT documented in this encounterOhio Valley Hospital08-04-2022 Miscellaneous Notes* Letter - Mammography Coordinator - 11/29/2021 4:34 PM EDT November 29, 2021 PID: [id number] Judi Pittman [address] [place] [address] Dear Ms. Pittman, We are pleased to inform you that [...] report will be kept [facility] as part of your permanent medical record and are available for your continuing care. Thank you for allowing us to help in meeting your health care needs. Sincerely, Dr. Parker Interpreting Radiologist [facility] (Normal over 40) documented in this encounterOhio Valley Hospital08-04-2022 History of Present illness Narrative* Mindi Lieberman - 11/29/2021 10:10 AM EDT Radiology Service Progress Note PATIENT NAME: Judi Pittman DATE OF SERVICE: November 29, 2021 TIME: [...] 29, 2021 10:59 AM documented in this encounterOhio Valley Hospital08-04-2022 Instructions* Patient Instructions* Monae Muhammad RN [...] breast cancer, and a history of Ashkenazi Gnosticist ancestry. Breast pain is very common and usually is not a sign of cancer, but should be evaluated by a breastspecialist. For comfort, simply reducing caffeine (coffee, tea, chocolate, energy drinks, sodas) inyour diet can provide relief. A properly fitted bra can also be helpful in reducing breast pain. Ifthose two measures do not provide relief, taking Evening Lamar Oil 1000mg capsules twice a day for [...] [email or web address]. Thank you ! 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 Bahena Social History Tobacco Use Smoking status: Never Smoker Smokeless tobacco: Never Used Vaping Use Vaping Use: Never used Substance Use Topics Alcohol use: No Drug use: Never documented in this encounterOhio Valley Hospital08-04-2022 History of Present illness Narrative* Sheela Celeste PA-C - 11/29/2021 9:00 AM EDT MEDICAL BREAST PATIENT NAME: Judi Pittman REFERRAL: She is referred by Dr. Tasha Lim for an opinion regarding survivorship care. My final recommendations will be communicated back to the requesting physician by the way of the shared medical record, fax, or via US Mail. HISTORY of PRESENT ILLNESS: Judi Pittman is a 76 year old year old postmenopausal female who presents to the [facility] [place] today to establish care. 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 12/29/2019 she went on to a [...] is planned for 5-10 years. 03/01/2020: Judi Pittman's Common Hereditary Cancers Panel through [employer] was negative for a deleterious mutation. A [...] Right OPEN TREATMENT,TRIMALLEOLAR ANKLE FRACTURE Right 05/29/2018 [facility] PICC LINE INSERT/CONSULT 01/23/2021 PICC LINE [...] Take 1 tablet by mouth once daily. bcrj-hhvwa-zn0-puc-gte-ystr-st (GLUCOSAMINE CHONDROITIN PLUS) [id number] mg cap Take 1 capsule by mouth [...] are scattered fibroglandular densities. Assessment IMPRESSION/PLAN: Judi Pittman is a 76 year old year old [...] which included preparing to see the patient, [id number] patient care, completing clinical documentation, performing a medically appropriate examination, counseling and educating the patient/family/caregiver and ordering medications,tests, or procedures. Sheela Celeste PA-C Medical Breast Specialist CC: Tasha Schaeffer [phone] [facility] [id number] [address] [place] [address] documented in this encounterOhio Valley Hospital08-03-2022 History of Present illness Narrative* Julianne Hernandezrison, PT - 11/28/2021 3:42 PM EDT Episode Visit Count: 7 Therapist That Will Oversee The Plan Of Care: Julianne Saab Start of Care Date: 10/31/21 Onset Date: 09/26/21 Plan of Care Certification Date: 10/31/21 Next Certification Due Date: 01/09/22 Patient Identified by Name and Date of : Yes REHABILITATION AND SPORTS THERAPY PHYSICAL THERAPY TREATMENT NOTE ASSESSMENT: Judi Pittman tolerated the session with no issues. She [...] 35 Julianne Saab PT documented in this encounterOhio Valley Hospital08-01-2022 History of Present illness Narrative* Julianne [...] THERAPY PHYSICAL THERAPY TREATMENT NOTE ASSESSMENT: Judi Pittman tolerated the session with no issues. She [...] 31 Julianne Saab PT documented in this encounterOhio Valley Hospital07-28-2022 History of Present illness Narrative* Julianne [...] THERAPY PHYSICAL THERAPY TREATMENT NOTE ASSESSMENT: Judi Pittman tolerated the session with continued trouble with [...] is willing to see neurologist with the [facility] Pain: OBJECTIVE MEASURES WITH LEVEL OF [...] 30 Julianne Saab PT documented in this encounterOhio Valley Hospital07-27-2022 History of Present illness Narrative* Raphael Perdomo APRN.HSE MANAGER - 11/21/2021 1:21 PM EDT Chief Complaint Patient presents with: Established Patient HPI: Judi Pittman is a 76 year old female who [...] strongly ER+ in 99% of cells, strongly KS+ in 99% of cells, and HER2-negative (0 by IHC). Stereotactic biopsy of the right breast with clip placement performed 12/29/19 showed rare atypical intraductal epithelial cells. She was taking estrogen as Estrace. (Stopped November 2019). On 01/28/20 Ms. Pittman underwent excision of the right breast lesion [...] re- excision. It's ER positive (99%, strong), KS positive (99%, strong) and Her2/maria a 0. [...] visit. Raphael Perdomo APRN.DESIRAE documented in this encounterOhio Valley Hospital07-26-2022 History of Present illness Narrative* Julianne [...] THERAPY PHYSICAL THERAPY TREATMENT NOTE ASSESSMENT: Judi Pittman tolerated the session with no issues. She [...] 30 Julianne Saab PT documented in this encounterOhio Valley Hospital07-21-2022 History of Present illness Narrative* Julianne [...] THERAPY PHYSICAL THERAPY TREATMENT NOTE ASSESSMENT: Judi Pittman tolerated the session with no issues. She [...] 30 Julianne Saab PT documented in this encounterOhio Valley Hospital07-19-2022 History of Present illness Narrative* Julianne [...] THERAPY PHYSICAL THERAPY TREATMENT NOTE ASSESSMENT: Judi Pittman tolerated the session with no issues. She [...] 40 Julianne Saab PT documented in this encounterOhio Valley Hospital07-06-2022 History of Present illness Narrative* Julianne [...] THERAPY EVALUATION PLAN OF CARE: Assessment: Judi Pittman presents with diagnosis of right post. tibialias [...] Improve right LE alignment for gait pattern [place] in home exercise program. Patient will increase [...] Planned: 12 Planned Treatment Interventions: Therapeutic exercise (14691);Neuromuscular re- education (02366);Self-usp management (01902);Patient/Family/Caregiver Education;Gait Training (84769);Therapeuticactivities (83224);Manual therapy (01864) PLAN FOR NEXT VISIT: Will add ankle circles , gait in parallel bars to improve hip and knee control Patient demonstrates good understanding of plan of care and treatment. The above goals and plan of care were discussed and agreed upon by patient/family. SUBJECTIVE: Judi Pittman is a 76 year old female seen [...] aneurysm (has neuropathy) Relevant History Preferred Language: Jamaican Employment: Retired Recreation / Current Exercise: none [...] 45 Julianne Saab PT documented in this encounterOhio Valley Hospital07-06-2022 History of Past illness Narrative* Problem [...] of this encounter (statuses as of 12/20/2021) [facility] illness Narrative* Problem [...] of this encounter (statuses as of 12/22/2021) [facility] Past illness Narrative* Problem [...] of this encounter (statuses as of 01/07/2022) [facility] Past [facility] Narrative* Problem [...] of this encounter (statuses as of 01/14/2022) [facility] Past illness Narrative* Problem [...] of this encounter (statuses as of 03/01/2022) [facility] Past [facility] Narrative* Problem [...] of this encounter (statuses as of 03/03/2022) [facility] Past illness Narrative* Problem [...] of this encounter (statuses as of 03/28/2022) [facility] Past [facility] Narrative* Problem [...] of this encounter (statuses as of 04/01/2022) [facility] Past [facility] Narrative* Problem [...] of this encounter (statuses as of 04/19/2022) [facility] Narrative* Problem [...] of this encounter (statuses as of 05/01/2022) [facility] Narrative* Problem [...] of this encounter (statuses as of 05/24/2022) [facility] Narrative* Problem [...] of this encounter (statuses as of 06/28/2022) [facility] Narrative* Problem [...] of this encounter (statuses as of 07/26/2022) [facility] Narrative* Problem [...] of this encounter (statuses as of 08/06/2022) [facility] Narrative* Problem [...] of this encounter (statuses as of 08/28/2022) [facility] Narrative* Problem [...] of this encounter (statuses as of 09/05/2022) [facility] Narrative* Problem [...] of this encounter (statuses as of 10/11/2022) [facility] Narrative* Problem [...] of this encounter (statuses as of 10/17/2022) [facility] Narrative* Problem [...] of this encounter (statuses as of 10/18/2022) [facility] Narrative* Problem [...] of this encounter (statuses as of 11/26/2022) [facility] Narrative* Problem [...] of this encounter (statuses as of 12/06/2022) [facility] Narrative* Problem [...] of this encounter (statuses as of 12/23/2022) [facility] Past [facility] Narrative* Problem [...] 10/21/2014 Localized superficial swelling, mass, or lump 06/22/1910/21/2014 Degenerative skin disorder 05/13/2008 0 10/21/2014 DERMATOSES [...] of this encounter (statuses as of 12/23/2022) [facility] Narrative* Problem [...] of this encounter (statuses as of 12/24/2022) [facility] Narrative* Problem [...] of this encounter (statuses as of 12/25/2022) [facility] Narrative* Problem [...] of this encounter (statuses as of 02/26/2023) [facility] Narrative* Problem [...] of this encounter (statuses as of 03/02/2023) [facility] Narrative* Problem [...] of this encounter (statuses as of 03/02/2023) [facility] Narrative* Problem [...] of this encounter (statuses as of 03/04/2023) [facility] Narrative* Problem [...] of this encounter (statuses as of 03/11/2023) [facility] Narrative* Problem [...] of this encounter (statuses as of 04/04/2023) [facility] Narrative* Problem [...] of this encounter (statuses as of 06/13/2023) [facility] Narrative* Problem [...] of this encounter (statuses as of 06/13/2023) [facility] of Present illness Narrative* Ruddy Cooper MD - 10/17/2021 9:00 AM EDT This note was created using discoapiriter. Subjective Judi Pittman is a 76 year old female. Patient presents with: F/U 6 months SUBJECTIVE: Judi Pittman is a 76 year old year old lady here today for 6 month follow up appointment for review of medical conditions. Going to [facility] for her right ankle after issues with failed hardware (broken screws). [place] need left foot addressed for problems after surgery for hammertoe. Will see for first appointment next Friday. Decided to go to [facility] for breast cancer treatment. Discussed bad experience had with breast biopsy in [place]. Noted severe dry heaving when had the [...] Take 1 tablet by mouth once daily. ealr-qzdvx-zh0-ote-fhc-rilb-st (GLUCOSAMINE CHONDROITIN PLUS) [id number] mg cap Take 1 capsule by mouth [...] Abs Lymph 1.00 - 4.00 k/uL 1.41 Navarro% % 9.4 Abs Navarro <0.87 k/uL 0.68 Eosin% % 2.1 Abs [...] PANEL - CBC 6. Breast cancer--following at [facility], Ruddy Cooper MD documented in this encounterOhio Valley Hospital06-13-2022 History of Present illness Narrative* Ruiz Serrato, SHAHID.HSE MANAGER - 10/08/2021 12:11 PM EDT Images from [...] after initial surgery. Surgery was performed at [facility]. Presents today due to concerns thather hardware [...] Right OPEN TREATMENT,TRIMALLEOLAR ANKLE FRACTURE Right 05/29/2018 [facility] PICC LINE INSERT/CONSULT 01/23/2021 PICC LINE [...] Take 1 tablet by mouth once daily. dbve-jzbrc-cc3-klw-ztz-hhsx-st (GLUCOSAMINE CHONDROITIN PLUS) [id number] mg cap Take 1 capsule by mouth [...] initial surgery. Patient will be scheduled with [facility] foot [facility] ankle. Appointment scheduled. We will follow-up with orthopedic doctor as scheduled. Follow-up with PCP did discuss ongoing neuropathy. Red flags for prompt reevaluation discussed. Supportive therapies discussed. Patient verbalized understanding agrees with plan of care. Ruiz Serrato APRN.DESIRAE documented in this encounterOhio Valley Hospital05-11-2022 Miscellaneous Notes* Telephone Encounter - Carolina [...] you. Carolina Don LPN documented in this encounterOhio Valley Hospital04-12-2022 NoteHNO ID: [id number] Author: GAMALIEL Best) Service: Radiology Author Type: Technologist Type: Progress Notes Filed: 08/07/2021 1:09 PM Note Text: Radiology Service Progress Note PATIENT NAME: Judi Pittman DATE OF SERVICE: August 07, 2021 TIME: [...] IV DATA: Not applicable SIGNED BY: RT Estephania(Huy) August 07, 2021 1:09 [facility] [id number] History of Present illness Narrative* GAMALIEL Best) - 08/07/2021 1:55 PM EDT Radiology Service Progress Note PATIENT NAME: Judi Pittman DATE OF SERVICE: August 07, 2021 TIME: [...] 07, 2021 1:09 PM documented in this encounterOhio Valley Hospital04-11-2022 Miscellaneous Notes* Telephone Encounter - Jocelyn Zhou - 08/06/2021 1:17 PM EDT Left VM to leave early due to construction on [address] documented in this encounterOhio Valley Hospital03-08-2022 NoteHNO ID: [id number] Author: RT Andrea(Huy) Service: Radiology Author Type: [...] Coil SIGNATURE: RT Andrea(R) PATIENT NAME: Judi Pittman DATE: July 03, 2021 TIME: 10:45 [facility] [id number] History of Past illness Narrative* Problem Noted [...] of this encounter (statuses as of 10/23/2021) [facility] Narrative* Problem [...] of this encounter (statuses as of 10/31/2021) [facility] Narrative* Problem [...] of this encounter (statuses as of 11/13/2021) [facility] Narrative* Problem [...] of this encounter (statuses as of 11/15/2021) [facility] illness Narrative* Problem [...] of this encounter (statuses as of 11/20/2021) [facility] illness Narrative* Problem [...] of this encounter (statuses as of 11/22/2021) [facility] Narrative* Problem [...] of this encounter (statuses as of 11/23/2021) [facility] Narrative* Problem [...] of this encounter (statuses as of 11/26/2021) [facility] Narrative* Problem [...] of this encounter (statuses as of 11/28/2021) [facility] Past illness Narrative* Problem [...] of this encounter (statuses as of 11/29/2021) [facility] Narrative* Problem [...] of this encounter (statuses as of 11/30/2021) [facility] Narrative* Problem [...] of this encounter (statuses as of 12/01/2021) [facility] Narrative* Problem [...] of this encounter (statuses as of 12/03/2021) [facility] Narrative* Problem [...] of this encounter (statuses as of 12/03/2021) [facility] illness Narrative* Problem [...] of this encounter (statuses as of 12/03/2021) [facility] Narrative* Problem [...] of this encounter (statuses as of 12/05/2021) [facility] illness Narrative* Problem [...] of this encounter (statuses as of 12/10/2021) [facility] Narrative* Problem [...] of this encounter (statuses as of 12/12/2021) [facility] Past illness Narrative* Problem [...] of this encounter (statuses as of 12/13/2021) [place] [id number] History of Past illness Narrative* Problem Noted [...] of this encounter (statuses as of 12/14/2021) [facility] Narrative* Problem [...] of this encounter (statuses as of 12/17/2021) [facility] of Past illness Narrative* Problem [...] of this encounter (statuses as of 08/06/2021) [facility] Past illness Narrative* Problem [...] of this encounter (statuses as of 08/08/2021) [facility] Past illness Narrative* Problem [...] of this encounter (statuses as of 09/06/2021) [facility] of Past [facility] Narrative* Problem [...] of this encounter (statuses as of 10/08/2021) [facility] of Present illness Narrative* Denisse Cuevas RT(R) - 12/25/2020 1:10 PM EDT Radiology Service Progress Note PATIENT NAME: Judi Pittman DATE OF SERVICE: December 25, 2020 TIME: [...] 25, 2020 1:03 PM documented in this encounterOhio Valley Hospital05-11-2021 NoteHNO ID: [id number] Author: RT Frieda(Huy) Service: ? Author Type: Workers Compensation Claims Analyst Type: Progress Notes Filed: 09/05/2020 12:14 PM Note Text: Radiology Service Progress Note PATIENT NAME: Judi Pittman DATE OF SERVICE: September 05, 2020 TIME: [...] BY: RT Frieda(R) September 05, 2020 12:12 PMAvita Health [id number] NoteHNO ID: [id number] Author: Mindi Pereira (Rt) Service: Radiology Author Type: Workers Compensation Claims Analyst Type: Progress Notes Filed: 08/01/2020 3:12 PM Note Text: Radiology Service Progress Note PATIENT NAME: Judi Pittman DATE OF SERVICE: August 01, 2020 TIME: [...] Yes RADIOLOGY DEPARTMENT: MR; Exam(s) Completed: Head: [facility] MRA PERIPHERAL IV DATA: Not applicable SIGNED BY: RT ISRRAEL August 01, 2020 3:12 [facility]01-09-2021 History of Present illness Narrative* Angella Murray (Rt), Tech - 05/06/2020 11:20 AM EST Radiology Service Progress Note PATIENT NAME: Judi Pittman DATE OF SERVICE: May 06, 2020 TIME: [...] 06, 2020 11:13 AM documented in this encounterSt. [facility] Hospitallt note Author Kaya Thrasher [facility] Note Date/Time October 12, 2024 3:57 pm [facility] Medical Records Department [address] [place] [address] Counseling Note - Pharmacy 10/12/24 9176 MR#: [id number] Acct: [id number] Name: JUDI PITTMAN Rep #:[id number] : 1945 79 From: Kaya Thrasher PCP: Dr. Ruddy Cooper MD Status:AD M IN Location: [facility] [place] [id number] [facility] Counseling Pharmacy Service has performed discharge medication [...] Signature (if applicable): Date CC: ~ Signed [facility] Work Phone: Evaluation note* Diagnosis Right knee pain, unspecified chronicity documented in this encounter [facility]* Diagnosis Onset Date Resolution Status Bacteria in urine acute Creatinine elevation acute Hydronephrosis with urinary obstruction due to ureteral calculus acute [facility] Work Phone: Evaluation note* Diagnosis Acute right ankle pain- Primary [facility] Osteoporosis, unspecified- Primary [facility]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 [facility]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 [facility]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 [facility]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 [facility]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 [facility] Diagnosis Invasive ductal carcinoma of breast, 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 [facility]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 [facility]* Diagnosis Bilateral fibrocystic breast changes- Primary Personal history of breast cancer Personal history of malignant neoplasm of breast S/P bilateral breast lumpectomy Other postprocedural status Use of anastrozole Use of aromatase inhibitors Encounter for screening mammogram for malignant neoplasm of breast Other screening mammogram [facility] Diagnosis Encounter for screening mammogram for breast cancer Bilateral fibrocystic breast changes Personal history of breast cancer Personal history of malignant neoplasm of breast S/P bilateral breast lumpectomy Other postprocedural status Encounter for screening mammogram for malignant neoplasm of breast Other screening mammogram documented [facility] this encounter [facility]*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 documented in this encounter [facility]* Diagnosis Cerebral aneurysm- Primary Cerebral aneurysm, nonruptured documented in this encounter [facility]*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 documented in this encounter [facility]*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 documented in this encounter [facility]*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 Cerebral aneurysm Cerebral aneurysm, nonruptured documented in this encounter [facility]* Diagnosis Vitamin D deficiency- Primary Unspecified vitamin D deficiency Type 2 diabetes mellitus with diabetic neuropathy, without long-term current use of insulin ([facility]) Generalized anxiety disorder Mixed hyperlipidemia documented in this encounter [facility]*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 documented in this encounter [facility]*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 documented in this encounter [facility]* Diagnosis Insomnia, unspecified type- Primary Anxiety Anxiety state, unspecified Vitamin D deficiency Unspecified vitamin D deficiency Type 2 diabetes mellitus with diabetic neuropathy, without long-term current use of insulin (HCC) Encounter for long-term current use of medication Malignant neoplasm of nipple of left breast in female, unspecified estrogen receptor status ([facility]) documented in this encounter [facility]* Diagnosis Intracranial aneurysm- Primary Cerebral aneurysm, nonruptured Nonruptured cerebral aneurysm Cerebral aneurysm, nonruptured documented in this encounter [facility]* Diagnosis Preop exam for internal medicine- [...] vitamin D deficiency documented in this encounter [facility]* Diagnosis Osteoporosis, unspecified- Primary documented in this encounter [facility]* Diagnosis Invasive ductal carcinoma of breast, 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 documented [facility] this encounter [facility]* Diagnosis Type 2 diabetes mellitus with diabetic neuropathy, without long-term current use of insulin (HCC)- Primary Vitamin D deficiency Unspecified vitamin D deficiency Insomnia, unspecified type [facility]* Diagnosis Primary hypertension- Primary Unspecified essential hypertension Encounter for immunization Need for other specified prophylactic vaccination against single bacterial disease Need for shingles vaccine Need for prophylactic vaccination and inoculation against other viral diseases History of extraction of renal calculus Other postprocedural status History of hydronephrosis Personal history of other disorder of urinary system [facility] Diagnosis Screening breast examination- Primary Breast screening, unspecified [facility] Diagnosis Bilateral fibrocystic breast changes- Primary Personal history of breast cancer Personal history of malignant neoplasm of breast S/P bilateral breast lumpectomy Other postprocedural status Use of anastrozole Use of aromatase inhibitors Encounter for screening mammogram for malignant neoplasm of breast Other screening mammogram Mass of lower outer quadrant of right breast [facility]* Diagnosis Screening breast examination Breast screening, unspecified [facility] Diagnosis Nonruptured cerebral aneurysm Cerebral aneurysm, nonruptured [facility] Diagnosis Intracranial aneurysm Cerebral aneurysm, nonruptured [facility]* Diagnosis Invasive ductal carcinoma of breast, 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 [facility]* Diagnosis Peripheral arterial disease (HCC)- Primary Peripheral vascular disease, unspecified Primary hypertension Unspecified essential hypertension Type 2 diabetes mellitus with diabetic neuropathy, without long-term current use of insulin (HCC) Tinnitus of both ears Unspecified tinnitus Vitamin D deficiency Unspecified vitamin D deficiency Mixed hyperlipidemia Muscle cramping Cramp of limb [facility] Diagnosis Screening for diabetic retinopathy- Primary [...] referable to limbs [facility]* Diagnosis Osteoporosis, unspecified- Primary [facility] Diagnosis History of abdominal surgery Other postprocedural status Abdominal pain, chronic, generalized Abdominal pain, generalized [facility]* Diagnosis Gait difficulty- Primary Abnormality of gait Complaints of leg weakness Other musculoskeletal symptoms referable to limbs [facility] Diagnosis Patient left without being seen- Primary Surgical or other procedure not carried out because of patient's decision [facility] Diagnosis Acute left ankle pain- Primary Foot pain, left Pain in limb Acute left ankle pain Foot pain, left Pain in limb [facility] Diagnosis Complaints of leg weakness- Primary Other musculoskeletal symptoms referable to limbs Gait difficulty Abnormality of gait [facility] Diagnosis Complaints of leg weakness- Primary Other musculoskeletal symptoms referable to limbs Gait difficulty Abnormality of gait documented [facility] Diagnosis Complaints of leg weakness- Primary Other musculoskeletal symptoms referable to limbs Gait difficulty Abnormality of gait documented [facility] Diagnosis Complaints of leg weakness- Primary Other musculoskeletal symptoms referable to limbs Gait difficulty Abnormality of gait [facility] Diagnosis Complaints of leg weakness- Primary Other musculoskeletal symptoms referable to limbs Gait difficulty Abnormality of gait [facility] Diagnosis Complaints of leg weakness- Primary Other musculoskeletal symptoms referable to limbs Gait difficulty Abnormality of gait documented [facility] Diagnosis Complaints of leg weakness- Primary Other musculoskeletal symptoms referable to limbs Gait difficulty Abnormality of gait documented [facility] Diagnosis Complaints of leg weakness- Primary Other musculoskeletal symptoms referable to limbs Gait difficulty Abnormality of gait [facility] Diagnosis Complaints of leg weakness- Primary Other musculoskeletal symptoms referable to limbs Gait difficulty Abnormality of gait documented [facility] this [facility]* Diagnosis Generalized abdominal pain- Primary Abdominal pain, generalized History of abdominal surgery Other postprocedural status documented [facility] Diagnosis Complaints of leg weakness- Primary Other musculoskeletal symptoms referable to limbs Gait difficulty Abnormality of gait [facility]* Diagnosis Type 2 diabetes mellitus with diabetic neuropathy, without long-term current use of insulin (HCC) 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) documented [facility]* Diagnosis Invasive ductal carcinoma of breast, left (HCC) documented [facility]* Diagnosis Complaints of leg weakness- Primary Other musculoskeletal symptoms referable to limbs Gait difficulty Abnormality of gait documented [facility] Diagnosis Pre-operative examination- Primary Preoperative examination, [...] Abnormality of gait [facility]* Diagnosis Pre-operative examination- Primary Preoperative examination, [...] current use of insulin ([facility]) 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) [...] referable to limbs [facility] Pre-operative examination- Primary Preoperative [...] of gait [facility] Diagnosis Pre-operative examination- Primary Preoperative examination, [...] cancer- Primary [facility] Diagnosis Pre-operative examination- Primary Preoperative examination, [...] current use of insulin ([facility]) 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) Generalized anxiety disorder Acute left ankle pain Foot pain, left Pain in limb [facility] Diagnosis Pre-operative examination- Primary Preoperative [...] current use of insulin ([facility]) 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) Generalized anxiety disorder Complaints of leg weakness- Primary Other musculoskeletal symptoms referable to limbs Gait difficulty Abnormality of gait [facility] Diagnosis Pre-operative examination- Primary Preoperative examination, [...] for breast cancer documented [facility]* Diagnosis Pre-operative examination- Primary Preoperative examination, [...] of gait [facility] Diagnosis Pre-operative examination- Primary Preoperative examination, [...] of right breast [facility] Diagnosis Pre-operative examination- Primary Preoperative examination, [...] current use of insulin ([facility]) 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) Generalized anxiety disorder Complaints of leg weakness- Primary Other musculoskeletal symptoms referable to limbs Gait difficulty Abnormality of gait [facility] Diagnosis Pre-operative examination- Primary Preoperative [...] hemorrhage) ([facility])- Primary Subarachnoid hemorrhage SAH (subarachnoid hemorrhage) ([facility]) Subarachnoid hemorrhage Dysphagia, oropharyngeal Dysphagia, oropharyngeal phase Generalized anxiety disorder Essential hypertension Unspecified essential hypertension Respiratory insufficiency Other dyspnea and respiratory abnormality Type 2 diabetes mellitus without complication, without long-term current use of insulin ([facility]) 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) [...] ankle pain [facility] Diagnosis Pre-operative examination- Primary Preoperative examination, [...] of patient's decision [facility] Diagnosis Pre-operative examination- Primary Preoperative examination, [...] current use of insulin ([facility]) Infiltrating ductal carcinoma of left breast ([facility]) Generalized anxiety disorder [facility] Diagnosis Pre-operative examination- Primary Preoperative examination, [...] current use of insulin ([facility]) Infiltrating ductal carcinoma of left breast ([facility]) Generalized anxiety disorder [facility] Diagnosis Pre-operative examination- Primary Preoperative examination, [...] left breast (HCC) [facility] Diagnosis Pre-operative examination- Primary Preoperative [...] of right breast [facility] Diagnosis Pre-operative examination- Primary Preoperative examination, [...] use of medication [facility] Diagnosis Pre-operative examination- Primary Preoperative examination, [...] current use of insulin ([facility]) 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) Generalized anxiety disorder Arthritis of hand Unspecified arthropathy, hand [facility] Diagnosis Pre-operative examination- Primary Preoperative [...] breast cancer [facility]* Diagnosis Pre-operative examination- Primary Preoperative [...] insulin (HCC)- Primary [facility] Diagnosis Pre-operative examination- Primary Preoperative examination, [...] long-term current use of insulin ([facility])- Primary [facility]* Diagnosis Pre-operative examination- Primary Preoperative examination, [...] Screening for nephropathy documented [facility]* Diagnosis Pre-operative examination- Primary Preoperative examination, [...] site not specified [facility]* Diagnosis Pre-operative examination- Primary Preoperative examination, [...] DM type 2 with diabetic peripheral neuropathy ([facility])- Primary Type II or unspecified type diabetes mellitus with neurological manifestations, not stated as uncontrolled Disease related peripheral neuropathy Other specified idiopathic peripheral neuropathy Cerebral aneurysm (HCC) Cerebral aneurysm, nonruptured Lesions of both ulnar nerves [facility] Diagnosis Pre-operative examination- Primary Preoperative [...] unspecified- Primary [facility] Diagnosis Pre-operative examination- Primary Preoperative examination, [...] of insulin (HCC) [facility]* Diagnosis Pre-operative examination- Primary Preoperative examination, [...] left breast (HCC) [facility] Diagnosis Pre-operative examination- Primary Preoperative [...] of health ([facility]) [facility]* Diagnosis Pre-operative examination- Primary Preoperative [...] of health ([facility]) [facility]* Diagnosis Pre-operative examination- Primary Preoperative [...] of complex care [facility] Diagnosis Pre-operative examination- Primary Preoperative [...] of left breast (HCC) Generalized anxiety disorder UTI symptoms- Primary Other symptoms involving urinary system documented [facility]No assessment [facility] Work Phone: Evaluation note* Diagnosis Pre-operative examination- Primary Preoperative examination, [...] tract infection without hematuria, site unspecified- Primary Dementia with other behavioral disturbance, unspecified dementia severity, unspecified dementia type ([facility]) Frequent falls Personal history of fall [facility] [...] disorder Urinary tract infection without hematuria, site unspecified [facility] Author Desiree Awan [facility] Note Date/Time October 19, 2024 7:23 pm [facility] Medical Records Department [address] [place] [address] H&P Exam - Hospitalist 10/19/24 1841 MR#: [id number] Acct: [id number] Name: PITTMANJUDI VICENTE Chevy Rep #:[id number] : 1945 79 From: Desiree Awan MD PCP: Dr. Ruddy Cooper MD Status:[place] [facility] Location: [facility] [place] [id number] HPI - General General Date of Admission: 10/19/24 Date of Service: 10/19/24 Chief Complaint: Generalized weakness HPI Narrative JUDI PITTMAN, is a 79-year-old female with history of diabetes, hypertension, anxiety presented [facility] ED 10/19/2024 due to weakness after a fall. Her daughter Sade called for a well check because she lives in [place] and was unable to get hold of [...] denies any other new or acute complaints [facility] Medical History Orthostatic hypotension Hoarseness History of [...] 70.1 H, Lymph % (Auto) 18.5 L, [place] % (Auto) 8.1, Eos % (Auto) 2.5, [...] Clarity Cloudy, Urine pH 7.0, Ur Specific [place] 1.015, Urine Protein 15 H, Urine Glucose [...] seen. Calcified right-sided pleural plaques. Reading Location: [id number] Brain CT 10/19/24 13:50 IMPRESSION: NO SIGNIFICANT CHANGE SINCE THE PRIOR EXAM no acute abnormality is seen. Reading Location: [id number] Assessment & Plan Assessment/Plan (1) Generalized weakness: [...] Awan MD Charges/Coding Visit Charges Inpatient E&M: 78089 Init Hosp L2 10/19/241922 <Electronically signed by Desiree Awan MD> Cosigner Signature (if applicable): CC: Dr. Ruddy Cooper MD; Dr. Desiree Awan MD~ Signed [facility] Work Phone: Hospital Discharge instructions Additional Instructions Follow-up with your doctor to ensure you are improving. Antivert for dizziness. Return if feeling worse.[facility] Work Phone: Reason for referral (narrative)* Diagnostic Procedure Only (Routine) - Closed Specialty Diagnoses / Procedures Referred By Contac t Referred To Contact XR IMAGING Diagnoses Right knee pain, unspecified chronicity Procedures XR KNEE POST OP 3V AP/LAT/MERCHANT RIGHT RADIOLOGIC EXAMINATION KNEE 3 VIEWS Rigoberto Chase APRN.HSE MANAGER [address] [address] Xr Imaging Referral ID Status Reason Start Date Expiration Date V isits Requested Visits Authorized [id number] Closed Auto-Generate d Referral 07/18/2021 08/16/2022 1 1 [facility] for referral (narrative)* Diagnostic Procedure Only (Urgent) - Closed Specialty Diagnoses / Procedures Referred By Contac t Referred To Contact XR IMAGING Diagnoses Acute right ankle pain Procedures XR ANKLE GENERAL 3V AP/LAT/OBL RIGHT RADEX ANKLE COMPLETE MINIMUM 3 VIEWS Ruiz Serrato APRN.HSE MANAGER [address] [place] [address] Xr Imaging Referral ID Status Reason Start Date Expiration Date V isits Requested Visits Authorized [id number] Closed Auto-Generate d Referral 10/08/2021 11/07/2022 1 1 [facility] for referral (narrative)* Diagnostic Procedure Only (Routine) - Authorized Specialty Diagnoses / Procedures Referred By George t Referred To Contact BR IMAGING Diagnoses Screening breast examination Procedures WILLIE SCREENING SCREENING MAMMOGRAPHY BI 2-VIEW BREAST INC CAD Sheela Celeste PA-C [address] [address] Br Imaging [address] [place] [address] Referral ID Status Reason Start Date Expiration Date Visits Requested Visits Authorized [id number] Authorized Auto-Generat ed Referral 12/23/2022 01/22/2024 1 1 [facility] for referral (narrative)* Diagnostic Procedure Only (Routine) - Pending Review Specialty Diagnoses / Procedures Referred By George mckeon Referred To Contact BR IMAGING Diagnoses Bilateral fibrocystic breast changes Personal history of breast cancer S/P bilateral breast lumpectomy Mass of lower outer quadrant of right breast Procedures US BREAST LTD RIGHT US BREAST UNI REAL TIME WITH IMAGE LIMITED Sheela Celeste PA-C [address] [place] [address] Br Imaging [address] [place] [address] Referral ID Status Reason Start Date Expiration Date Visits Requested Visits Authorized [id number] Pending Review Auto-Generat ed Referral 12/24/2022 01/23/2024 [...] COMPUTER-AIDED DETCJ BI Sheela Celeste PA-C [address] [address] Br Imaging [address] [place] [address] Referral ID Status Reason Start Date Expiration Date Visits Requested Visits Authorized [id number] Authorized Auto-Generat ed Referral 12/24/2022 01/23/2024 1 1 [facility] for referral (narrative)* Diagnostic Procedure Only (Routine) - Closed Specialty Diagnoses / Procedures Referred By Contac t Referred To Contact MR IMAGING Diagnoses Intracranial aneurysm Procedures MRA BRAIN WO/W IVCON MRA; HEAD W & WO CONTRAST Adeline Mares, SURGICAL SUPERVISOR.HSE MANAGER [address] [place] [address] [place] [address] Referral ID Status Reason Start Date Expiration Date Visits Re quested Visits Authorized [id number] Closed 02/27/2023 03/29/2023 1 1 [facility] for referral (narrative)* Diagnostic Procedure Only (Routine) - Authorized Specialty Diagnoses / Procedures Referred By Contac t Referred To Contact BR IMAGING Diagnoses Screening mammogram for breast cancer Procedures WILLIE SCREENING W AVNI SCREENING DIGITAL BREAST TOMOSYNTHESIS BI SCREENING MAMMOGRAPHY BI 2-VIEW BREAST INC Bradford Walters SURGICAL SUPERVISOR.CLEANING VALIDATION CONSULTANT [address] [place] [address] Br Imaging [address] [place] [address] Referral ID Status Reason Start Date Expiration Date Visits Requested Visits Authorized [id number] Authorized Auto-Generat ed Referral 01/01/2024 01/30/2025 1 1 [facility] for referral (narrative)* Diagnostic Procedure Only (Urgent) - Closed Specialty Diagnoses / Procedures Referred By Contac t Referred To Contact XR IMAGING Diagnoses Acute left ankle pain Foot pain, left Procedures XR FOOT GENERAL 3V AP/LAT/OBL LEFT RADEX FOOT COMPLETE MINIMUM 3 VIEWS Ruiz Serrato SURGICAL SUPERVISOR.HSE MANAGER [address] [place] [address] [place] [address] Referral ID Status Reason Start Date Expiration Date V isits Requested Visits Authorized [id number] Closed Auto-Generate d Referral 10/14/2023 11/12/2024 1 1 * Diagnostic Procedure Only (Urgent) - Closed Specialty Diagnoses / Procedures Referred By Contac t Referred To Contact XR IMAGING Diagnoses Acute left ankle pain Foot pain, left Procedures XR ANKLE GENERAL 3V AP/LAT/OBL LEFT RADEX ANKLE COMPLETE MINIMUM 3 VIEWS Ruiz Serrato APRN.HSE MANAGER [address] [place] [address] [place] [address] Referral ID Status Reason Start Date Expiration Date V isits Requested Visits Authorized [id number] Closed Auto-Generate d Referral 10/14/2023 11/12/2024 1 1 [facility] for referral (narrative)* Diagnostic Procedure Only (Routine) - Closed Specialty Diagnoses / Procedures Referred By Contac t Referred To Contact BR IMAGING Diagnoses Screening mammogram for breast cancer Procedures WILLIE SCREENING W AVNI SCREENING DIGITAL BREAST TOMOSYNTHESIS BI SCREENING MAMMOGRAPHY BI 2-VIEW BREAST INC Bradford Walters APRN.CLEANING VALIDATION CONSULTANT [address] [place] [address] Br Imaging [address] [place] [address] Referral ID Status Reason Start Date Expiration Date V isits Requested Visits Authorized [id number] Closed Auto-Generate d Referral 01/01/2024 01/30/2025 1 1 [facility] for referral (narrative)* Diagnostic Procedure Only (Routine) - Closed Specialty Diagnoses / Procedures Referred By Contac t Referred To Contact BR IMAGING Diagnoses Bilateral fibrocystic breast changes Personal history of breast cancer S/P bilateral breast lumpectomy Mass of lower outer quadrant of right breast Procedures US BREAST LTD RIGHT US BREAST UNI REAL TIME WITH IMAGE LIMITED Sheela Celeste PA-C [address] [address] Br Imaging [address] [place] [address] Referral ID Status Reason Start Date Expiration Date V isits Requested Visits Authorized [id number] Closed Auto-Generate d Referral 12/24/2022 01/23/2024 1 1 [facility] for referral (narrative)* Diagnostic Procedure Only (Urgent) - Closed Specialty Diagnoses / Procedures Referred By Contac t Referred To Contact XR IMAGING Diagnoses Acute right ankle pain Procedures XR ANKLE GENERAL 3V AP/LAT/OBL RIGHT RADEX ANKLE COMPLETE MINIMUM 3 VIEWS Ruiz Serrato APRN.HSE MANAGER [address] [place] [address] Xr Imaging [facility] Referral ID Status Reason Start Date Expiration Date V isits Requested Visits Authorized [id number] Closed Auto-Generate d Referral 10/08/2021 11/07/2022 1 1 [facility] for referral (narrative)* Diagnostic Procedure Only (Routine) - Closed Specialty Diagnoses / Procedures Referred By Contac t Referred To Contact XR IMAGING Diagnoses Arthritis of hand Procedures XR HAND GENERAL 3V PA/LAT/OBL BILATERAL RADEX HAND MINIMUM 3 VIEWS Ruddy Cooper MD [address] [place] [address] Xr Imaging [facility]95 Referral ID Status Reason Start Date Expiration Date V isits Requested Visits Authorized [id number] Closed Auto-Generate d Referral 02/26/2024 03/27/2025 1 1 [facility] for referral (narrative)No reason for referral information [facility] Work Phone: Reason for visit Narrative* Diagnostic Procedure Only (Routine) - Authorized Specialty Diagnoses / Procedures Referred By Contac t Referred To Contact BR IMAGING Diagnoses Screening breast examination Procedures WILLIE SCREENING SCREENING MAMMOGRAPHY BI 2-VIEW BREAST INC Sheela Tejada PA-C [address] [place] [address] Br Imaging [address] [place] [address] Referral ID Status Reason Start Date Expiration Date Visits Requested Visits Authorized [id number] Authorized Auto-Generat ed Referral 12/23/2022 01/22/2024 1 1 [facility] for visit Narrative* Diagnostic Procedure Only (Routine) - Closed Specialty Diagnoses / Procedures Referred By Contac t Referred To Contact MR IMAGING Diagnoses Intracranial aneurysm Procedures MRA BRAIN WO/W IVCON MRA; HEAD W & WO CONTRAST Adeline Mares, SURGICAL SUPERVISOR.HSE MANAGER [address] [place] [address] [place] [address] Referral ID Status Reason Start Date Expiration Date Visits Re quested Visits Authorized [id number] Closed 02/27/2023 03/29/2023 1 1 [facility] for visit Narrative* Diagnostic Procedure Only (Routine) - Closed Specialty Diagnoses / Procedures Referred By Contac t Referred To Contact CT IMAGING Diagnoses History of abdominal surgery Abdominal pain, chronic, generalized Procedures CT ABD/PEL WO IVCON CT ABD & PELVIS W/O CONTRAST Bradford John, SURGICAL SUPERVISOR.CLEANING VALIDATION CONSULTANT [address] [place] [address] Ct Imaging [facility]95 Referral ID Status Reason Start Date Expiration Date V isits Requested Visits Authorized [id number] Closed Auto-Generate d Referral 09/23/2023 10/23/2023 2 1 [facility] for visit Narrative* Diagnostic Procedure Only (Urgent) - Closed Specialty Diagnoses / Procedures Referred By Contac t Referred To Contact XR IMAGING Diagnoses Acute left ankle pain Foot pain, left Procedures XR FOOT GENERAL 3V AP/LAT/OBL LEFT RADEX FOOT COMPLETE MINIMUM 3 VIEWS Ruiz Serrato, SURGICAL SUPERVISOR.HSE MANAGER [address] [place] [address] [place] [address] Referral ID Status Reason Start Date Expiration Date V isits Requested Visits Authorized [id number] Closed Auto-Generate d Referral 10/14/2023 11/12/2024 1 1 [facility] for visit Narrative* Diagnostic Procedure Only (Routine) - Closed Specialty Diagnoses / Procedures Referred By Contac t Referred To Contact BR IMAGING Diagnoses Screening mammogram for breast cancer Procedures WILLIE SCREENING W AVNI SCREENING DIGITAL BREAST TOMOSYNTHESIS BI SCREENING MAMMOGRAPHY BI 2-VIEW BREAST INC CAD Bradford John, SURGICAL SUPERVISOR.CLEANING VALIDATION CONSULTANT [address] [place] [address] Br Imaging [address] [place] [address] Referral ID Status Reason Start Date Expiration Date V isits Requested Visits Authorized [id number] Closed Auto-Generate d Referral 01/01/2024 01/30/2025 1 1 [facility] for visit Narrative* Diagnostic Procedure Only (Urgent) - Closed Specialty Diagnoses / Procedures Referred By Carolac t Referred To Contact XR IMAGING Diagnoses Acute right ankle pain Procedures XR ANKLE GENERAL 3V AP/LAT/OBL RIGHT RADEX ANKLE COMPLETE MINIMUM 3 VIEWS Ruiz Serrato, SURGICAL SUPERVISOR.HSE MANAGER [address] [place] [address] [place] [address] Referral ID Status Reason Start Date Expiration Date V isits Requested Visits Authorized [id number] Closed Auto-Generate d Referral 10/08/2021 11/07/2022 1 1 [facility] for visit Narrative* Diagnostic Procedure Only (Routine) - Closed Specialty Diagnoses / Procedures Referred By Contac t Referred To Contact XR IMAGING Diagnoses Arthritis of hand Procedures XR HAND GENERAL 3V PA/LAT/OBL BILATERAL RADEX HAND MINIMUM 3 VIEWS Ruddy Cooper MD [address] [place] [address] [place] [address] Referral ID Status Reason Start Date Expiration Date V isits Requested Visits Authorized [id number] Closed Auto-Generate d Referral 02/26/2024 03/27/2025 1 1 [facility] Summary Purpose Family History No Family History Records Found Relationship Condition Age at Onset Recorded Date/T jordana Not Specified Hemorrhagic disorder Unknown mother Malignant neoplasm of breast Unknown Hypertension Unknown Alzheimer's disease Unknown aunt Malignant neoplasm of breast Unknown father Coronary artery disease Unknown sister Alzheimer's disease Unknown Advance Directives No Advanced Directives Records FoundDocuments on File Type Date Recorded 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 Yes August 26, 2024 12:16am Do you have a Healthcare Power of Gunner Mate? Yes September 08, 2024 10:13pm Advance Directives Yes July 06 016 10:32am Advance Directive Response Recorded Date/ Time Do you have a Healthcare Pow er of Gunner Mate? Yes August 26, 2024 12:16am Do you have a Healthcare Pow er of Gunner Mate? Yes September 08, 2024 10:13pm Do you have a Healthcare Pow er of Gunner Mate? Yes October 10, 2024 2:08pm Name of Medical Power of Gunner Mate Sade White- Daughter October 10, 2024 2:08pm Advance Directives Yes July 06 016 10:32am Advance Directive Response Recorded Date/ Time Do you have a Healthcare Pow er of Gunner Mate? Yes August 26, 2024 12:16am Do you have a Healthcare Pow er of Gunner Mate? Yes September 08, 2024 10:13pm Do you have a Healthcare Pow er of Gunner Mate? Yes October 10, 2024 6:57pm Name of Medical Power of Gunner Mate Sade fuchs October 10, 2024 6:57pm Advance Directives Yes July 06 10:32am Advance Directive Response Recorded Date/ Time Do you have a Healthcare Pow er of Gunner Mate? Yes October 19, 2024 12:24pm Name of Medical Power of Gunner Mate Sade White October 19, 2024 12:24pm Do you have a Healthcare Pow er of Gunner Mate? Yes August 26, 2024 12:16am Do you have a Healthcare Pow er of Gunner Mate? Yes September 08, 2024 10:13pm Do you have a Healthcare Pow er of Gunner Mate? Yes October 10, 2024 6:57pm Name of Medical Power of Gunner Mate Sade Mary Ellen fuchs October 10, 2024 6:57pm Advance Directives Yes July 06 10:32am Advance Directive Response Recorded Date/ Time Do you have a Healthcare Pow er of Gunner Mate? Yes October 19, 2024 9:14pm Name of Medical Power of Gunner Mate Sade White October 19, 2024 12:24pm Do you have a Healthcare Pow er of Gunner Mate? Yes August 26, 2024 12:16am Do you have a Healthcare Pow er of Gunner Mate? Yes September 08, 2024 10:13pm Do you have a Healthcare Pow er of Gunner Mate? Yes October 10, 2024 6:57pm Name of Medical Power of Gunner Mate Sade fuchs October 10, 2024 6:57pm Advance Directives Yes July 06 10:32am Advance Directive Response Recorded Date/ Time Do you have a Healthcare Pow er of Gunner Mate? Yes October 19, 2024 9:14pm Name of Medical Power of Gunner Mate Sade White October 19, 2024 12:24pm Do you have a Healthcare Pow er of Gunner Mate? Yes August 26, 2024 12:16am Do you have a Healthcare Pow er of Gunner Mate? Yes September 08, 2024 10:13pm Do you have a Healthcare Pow er of Gunner Mate? Yes October 10, 2024 6:57pm Name of Medical Power of Gunner Mate Sade fuchs October 10, 2024 6:57pm Do you have a Healthcare Pow er of Gunner Mate? Yes December 01, 2024 2:32pm Advance Directives Yes July 06 10:32am Chief [...] Generalized weakness October 19, 2024 7:0 8pm Chief Complaint Admit Date SERIAL FALLS ADULT [...] pm FALL GENERAL WEAKNESS October 19, 2024 6: 41pm FALL GENERAL WEAKNESS October 19, 2024 7: 08pm FALL GENERAL WEAKNESS October 20, 2024 5: 54pm FALL GENERAL WEAKNESS October 21, 2024 5: 11pm FALL GENERAL WEAKNESS October 22, 2024 7: 44pm FALL GENERAL WEAKNESS October 23, 2024 2: 21pm FALL GENERAL WEAKNESS October 24, 2024 4: 40pm FALL GENERAL WEAKNESS October 25, 2024 1: 17pm Reason for Visit Admit Date Adult failure to thrive August 25, 2024 11:50pm Multiple falls August 25, 2024 11: 50pm Physical debility August 25, 2024 11: 50pm Confusion October 10, 2024 4:33 pm Lactic acidosis October 10, 2024 4:33 pm Urinary tract infection October 10, 2024 4:33pm Confusion October 19, 2024 6:41 pm Dementia without behavioral disturbance October 19, 2024 6:41pm Fall October 19, 2024 6:41 pm Generalized weakness October 19, 2024 6:4 1pm Chief Complaint Admit Date SERIAL FALLS ADULT [...] pm FALL GENERAL WEAKNESS October 19, 2024 6: 41pm FALL GENERAL WEAKNESS October 19, 2024 7: 08pm FALL GENERAL WEAKNESS October 20, 2024 5: 54pm FALL GENERAL WEAKNESS October 21, 2024 5: 11pm FALL GENERAL WEAKNESS October 22, 2024 7: 44pm FALL GENERAL WEAKNESS October 23, 2024 2: 21pm FALL GENERAL WEAKNESS October 24, 2024 4: 40pm FALL GENERAL WEAKNESS October 25, 2024 1: 17pm JAIL LAB WORK November 02, 2024 4:0 0am Chief Complaint Admit Date SERIAL FALLS ADULT [...] pm FALL GENERAL WEAKNESS October 19, 2024 6: 41pm FALL GENERAL WEAKNESS October 19, 2024 7: 08pm FALL GENERAL WEAKNESS October 20, 2024 5: 54pm FALL GENERAL WEAKNESS October 21, 2024 5: 11pm FALL GENERAL WEAKNESS October 22, 2024 7: 44pm FALL GENERAL WEAKNESS October 23, 2024 2: 21pm FALL GENERAL WEAKNESS October 24, 2024 4: 40pm FALL GENERAL WEAKNESS October 25, 2024 1: 17pm JAIL LAB WORK November 02, 2024 4:0 0am LABWORK November 03, 2024 1:05p m mental health December 01, 2024 1:2 0pm Chief Complaint Admit Date Admission H&P exam November 01, 2024 7:02p m Chief Complaint Admit Date SERIAL FALLS ADULT [...] pm FALL GENERAL WEAKNESS October 19, 2024 6: 41pm FALL GENERAL WEAKNESS October 19, 2024 7: 08pm FALL GENERAL WEAKNESS October 20, 2024 5: 54pm FALL GENERAL WEAKNESS October 21, 2024 5: 11pm FALL GENERAL WEAKNESS October 22, 2024 7: 44pm FALL GENERAL WEAKNESS October 23, 2024 2: 21pm FALL GENERAL WEAKNESS October 24, 2024 4: 40pm FALL GENERAL WEAKNESS October 25, 2024 1: 17pm JAIL LAB WORK November 02, 2024 4:0 0am LABWORK November 03, 2024 1:05p m mental health December 01, 2024 1:2 0pm NEW CONCERN December 01, 2024 5:1 5pm Medications Administered Section Inactive Administered Medications - [...] THERAPEUTIC EXERCISES RE, EA 15 MIN. Pt [facility] [address] [place] [address] [facility] [place] [address] [place] [address] Referral ID Status Reason Start Date Expiration Date Visits Requested Visits Authorized [id number] Pending Review PCP Requested Referral Auto-Generate d Referral 10/31/2021 01/29/2022 1 1 Specialty Diagnoses / Procedures Referred By Contac t Referred To Contact MR IMAGING Diagnoses Intracranial aneurysm Procedures MRA BRAIN WO/W IVCON MRA; HEAD W & WO CONTRAST Adeline Mares, SURGICAL SUPERVISOR.HSE MANAGER [address] [place] [address] Mr Imaging Referral ID Status Reason Start Date Expiration Date Visits Requested Visits Authorized [id number] Pending Review Auto-Generat ed Referral 02/26/2023 03/31/2023 1 1 Specialty Diagnoses / Procedures Referred By Contac t Referred To Contact MR IMAGING Diagnoses Nonruptured cerebral aneurysm Procedures MRA BRAIN WO/W IVCON MRA; HEAD W & WO CONTRAST Gamaliel Reardon, SURGICAL SUPERVISOR.HSE MANAGER [address] [place] [address] [place] [address] Referral ID Status Reason Start Date Expiration Date V isits Requested Visits Authorized [id number] Closed Auto-Generate d Referral 02/18/2022 03/20/2022 1 1 Specialty Diagnoses / Procedures Referred By Contac t Referred To Contact [facility] Diagnoses Gait difficulty Complaints of leg weakness Procedures CONSULT TO PHYSICAL THERAPY PHYSICAL THERAPY EVALUATION HIGH COMPLEX 45 MINS Bradford John, SURGICAL SUPERVISOR.CLEANING VALIDATION CONSULTANT [address] [place] [address] [facility] [address] [place] [address] Referral ID Status Reason Start Date Expiration Date Visits Requested Visits Authorized [id number] Pending Review Auto-Generat ed Referral 09/08/2023 09/07/2024 1 1 Specialty Diagnoses / Procedures Referred By Contac t Referred To Contact CT IMAGING Diagnoses History of abdominal surgery Abdominal pain, chronic, generalized Procedures CT ABD/PEL WO IVCON CT ABD & PELVIS W/O CONTRAST Bradford John, SURGICAL SUPERVISOR.CLEANING VALIDATION CONSULTANT [address] [place] [address] [place] [address] Referral ID Status Reason Start Date Expiration Date Visits Requested Visits Authorized [id number] Pending Review Auto-Generat ed Referral 09/08/2023 10/07/2024 1 1 Specialty Diagnoses / Procedures Referred By Contac t Referred To Contact Ophthalmology Diagnoses Screening for diabetic retinopathy Procedures CONSULT TO OPHTHALMOLOGY OFFICE/OUTPATIENT [facility] 60 MINUTES Bradford John, SURGICAL SUPERVISOR.CLEANING VALIDATION CONSULTANT [address] [place] [address] Referral ID Status Reason Start Date Expiration Date Visits Requested Visits Authorized [id number] Authorized PCP Requested Referral 09/08/2023 09/07/2024 1 1 Specialty Diagnoses / Procedures Referred By Contac t Referred To Contact [facility] Diagnoses Gait difficulty Complaints of leg weakness Procedures PT REHAB FOLLOW UP ORDER THERAPEUTIC EXERCISES RE, EA 15 MIN. Charleen Johnson, PT [facility] [address] [place] [address] Referral ID Status Reason Start Date Expiration Date Visits Requested Visits Authorized [id number] Pending Review PCP Requested Referral Auto-Generate d Referral 09/29/2023 12/28/2023 1 1 Specialty Diagnoses / Procedures Referred By Contac t Referred To Contact Podiatry Diagnoses Acute left ankle pain Foot pain, left Procedures CONSULT TO PODIATRY OFFICE/OUTPATIENT [facility] 60 MINUTES Ruiz Serrato, SURGICAL SUPERVISOR.HSE MANAGER [address] [place] [address] Referral ID Status Reason Start Date Expiration Date Visits Requested Visits Authorized [id number] Authorized PCP Requested Referral 10/14/2023 10/13/2024 1 1 Specialty Diagnoses / Procedures Referred By Contac t Referred To Contact XR IMAGING Diagnoses Acute left ankle pain Foot pain, left Procedures XR FOOT GENERAL 3V AP/LAT/OBL LEFT RADEX FOOT COMPLETE MINIMUM 3 VIEWS Ruiz Serrato, SURGICAL SUPERVISOR.HSE MANAGER [address] [place] [address] [place] [address] Referral ID Status Reason Start Date Expiration Date V isits Requested Visits Authorized [id number] Closed Auto-Generate d Referral 10/14/2023 11/12/2024 1 1 Specialty Diagnoses / Procedures Referred By Contac t Referred To Contact XR IMAGING Diagnoses Acute left ankle pain Foot pain, left Procedures XR ANKLE GENERAL 3V AP/LAT/OBL LEFT RADEX ANKLE COMPLETE MINIMUM 3 VIEWS Ruiz Serrato, SURGICAL SUPERVISOR.HSE MANAGER [address] [place] [address] Xr Imaging [place] [address] Referral ID Status Reason Start Date Expiration Date V isits Requested Visits Authorized [id number] Closed Auto-Generate d Referral 10/14/2023 11/12/2024 1 1 Specialty Diagnoses / Procedures Referred By Contac t Referred To Contact [facility] Diagnoses Generalized abdominal pain History of abdominal surgery Procedures CONSULT TO PHYSICAL THERAPY PHYSICAL THERAPY EVALUATION HIGH COMPLEX 45 MINS Ruddy Cooper MD [address] [place] [address] [facility] [place] [address] [place], [place] [id number] Referral ID Status Reason Start Date Expiration Date Visits Requested Visits Authorized [id number] Pending Review Auto-Generat ed Referral 10/13/2023 10/12/2024 1 1 Specialty Diagnoses / Procedures Referred By Contac t Referred To Contact [facility] Diagnoses Complaints of leg weakness Gait difficulty Procedures PT REHAB FOLLOW UP ORDER THERAPEUTIC EXERCISES RE, EA 15 MIN. Charleen Johnson, PT [facility] [address] [place] [address] Referral ID Status Reason Start Date Expiration Date Visits Requested Visits Authorized [id number] New Request PCP Requested Referral Auto-Generate d Referral 11/26/2023 02/24/2024 1 1 Referral ID Status Reason Start Date Expiration Date Visits Requested Visits Authorized [id number] New Request PCP Requested Referral Auto-Generate d Referral 12/16/2023 03/15/2024 1 1 Specialty Diagnoses / Procedures Referred By Contac t Referred To Contact Ent - Otolaryngology Diagnoses Tinnitus of both ears Procedures CONSULT TO ENT OFFICE/OUTPATIENT NEW [facility]IGH [facility]DM 60 MINUTES Bradford John, SURGICAL SUPERVISOR.CLEANING VALIDATION CONSULTANT [address] [place] [address] Referral ID Status Reason Start Date Expiration Date Visits Requested Visits Authorized [id number] Authorized PCP Requested Referral 12/19/2023 12/18/2024 1 1 Specialty Diagnoses / Procedures Referred By Contac t Referred To Contact [facility] Diagnoses Hypertension Syncope, unspecified syncope type Procedures ECHO ECHO TTHRC R-T 2D W/WOM-MODE COMPL SPEC&COLR D JohnBradford, SURGICAL SUPERVISOR.CLEANING VALIDATION CONSULTANT [address] [place] [address] [facility] [place] [address] [place] [address] Referral ID Status Reason Start Date Expiration Date Visits Requested Visits Authorized [id number] Pending Review Auto-Generat ed Referral 12/19/2023 12/18/2024 1 1 Additional Source Comments INFORMATION SOURCE (unrecogn ized section and content) DATE CREATED AUTHOR 12/16/2020 [facility] DATE CREATED AUTHOR AUTHOR'S ORGANIZ ATION 08/08/2021 [facility] DATE CREATED AUTHOR AUTHOR'S ORGANIZ ATION 12/15/2024 [facility] DATE CREATED AUTHOR AUTHOR'S ORGANIZ ATION 12/16/2024 [facility] Source Comments (unrecognize d section and content) In the event this informatio n is protected by the Federal Confidentiality of Alcohol and Drug Abuse Patient Records regulations: The Federal rules restrict any use of the information to criminally investigate or prosecute any alcohol or drug abuse patient.[facility] the event this information is protected by the Federal Confidentiality of Alcohol and Drug Abuse Patient Records regulations: The Federal rules restrict any use of the information to criminally investigate or prosecute any alcohol or drug abuse patient.[facility] HospitalIn the event this information is protected by the Federal Confidentiality of Alcohol and Drug Abuse Patient Records regulations: The Federal rules restrict any use of the information to criminally investigate or prosecute any alcohol or drug abuse patient.[facility] HospitalIn the event this information is protected by the Federal Confidentiality of Alcohol and Drug Abuse Patient Records regulations: The Federal rules restrict any use of the information to criminally investigate or prosecute any alcohol or drug abuse patient.[facility] HospitalIn the event this information is protected by the Federal Confidentiality of Alcohol and Drug Abuse Patient Records regulations: The Federal rules restrict any use of the information to criminally investigate or prosecute any alcohol or drug abuse patient.[facility] HospitalIn the event this information is protected by the Federal Confidentiality of Alcohol and Drug Abuse Patient Records regulations: The Federal rules restrict any use of the information to criminally investigate or prosecute any alcohol or drug abuse patient.[facility] HospitalIn the event this information is protected by the Federal Confidentiality of Alcohol and Drug Abuse Patient Records regulations: The Federal rules restrict any use of the information to criminally investigate or prosecute any alcohol or drug abuse patient.[facility] HospitalIn the event this information is protected by the Federal Confidentiality of Alcohol and Drug Abuse Patient Records regulations: The Federal rules restrict any use of the information to criminally investigate or prosecute any alcohol or drug abuse patient.[facility] HospitalIn the event this information is protected by the Federal Confidentiality of Alcohol and Drug Abuse Patient Records regulations: The Federal rules restrict any use of the information to criminally investigate or prosecute any alcohol or drug abuse patient.[facility] HospitalIn the event this information is protected by the Federal Confidentiality of Alcohol and Drug Abuse Patient Records regulations: The Federal rules restrict any use of the information to criminally investigate or prosecute any alcohol or drug abuse patient.[facility] HospitalIn the event this information is protected by the Federal Confidentiality of Alcohol and Drug Abuse Patient Records regulations: The Federal rules restrict any use of the information to criminally investigate or prosecute any alcohol or drug abuse patient.[facility] HospitalIn the event this information is protected by the Federal Confidentiality of Alcohol and Drug Abuse Patient Records regulations: The Federal rules restrict any use of the information to criminally investigate or prosecute any alcohol or drug abuse patient.[facility] HospitalIn the event this information is protected by the Federal Confidentiality of Alcohol and Drug Abuse Patient Records regulations: The Federal rules restrict any use of the information to criminally investigate or prosecute any alcohol or drug abuse patient.[facility] HospitalIn the event this information is protected by the Federal Confidentiality of Alcohol and Drug Abuse Patient Records regulations: The Federal rules restrict any use of the information to criminally investigate or prosecute any alcohol or drug abuse patient.[facility] HospitalIn the event this information is protected by the Federal Confidentiality of Alcohol and Drug Abuse Patient Records regulations: The Federal rules restrict any use of the information to criminally investigate or prosecute any alcohol or drug abuse patient.[facility] HospitalIn the event this information is protected by the Federal Confidentiality of Alcohol and Drug Abuse Patient Records regulations: The Federal rules restrict any use of the information to criminally investigate or prosecute any alcohol or drug abuse patient.[facility] HospitalIn the event this information is protected by the Federal Confidentiality of Alcohol and Drug Abuse Patient Records regulations: The Federal rules restrict any use of the information to criminally investigate or prosecute any alcohol or drug abuse patient.[facility] HospitalIn the event this information is protected by the Federal Confidentiality of Alcohol and Drug Abuse Patient Records regulations: The Federal rules restrict any use of the information to criminally investigate or prosecute any alcohol or drug abuse patient.[facility] HospitalIn the event this information is protected by the Federal Confidentiality of Alcohol and Drug Abuse Patient Records regulations: The Federal rules restrict any use of the information to criminally investigate or prosecute any alcohol or drug abuse patient.[facility] HospitalIn the event this information is protected by the Federal Confidentiality of Alcohol and Drug Abuse Patient Records regulations: The Federal rules restrict any use of the information to criminally investigate or prosecute any alcohol or drug abuse patient.[facility] HospitalIn the event this information is protected by the Federal Confidentiality of Alcohol and Drug Abuse Patient Records regulations: The Federal rules restrict any use of the information to criminally investigate or prosecute any alcohol or drug abuse patient.[facility] HospitalIn the event this information is protected by the Federal Confidentiality of Alcohol and Drug Abuse Patient Records regulations: The Federal rules restrict any use of the information to criminally investigate or prosecute any alcohol or drug abuse patient.[facility] HospitalIn the event this information is protected by the Federal Confidentiality of Alcohol and Drug Abuse Patient Records regulations: The Federal rules restrict any use of the information to criminally investigate or prosecute any alcohol or drug abuse patient.[facility] HospitalIn the event this information is protected by the Federal Confidentiality of Alcohol and Drug Abuse Patient Records regulations: The Federal rules restrict any use of the information to criminally investigate or prosecute any alcohol or drug abuse patient.[facility]In the event this information is protected by the Federal Confidentiality of Alcohol and Drug Abuse Patient Records regulations: The Federal rules restrict any use of the information to criminally investigate or prosecute any alcohol or drug abuse patient.[facility] HospitalIn the event this information is protected by the Federal Confidentiality of Alcohol and Drug Abuse Patient Records regulations: The Federal rules restrict any use of the information to criminally investigate or prosecute any alcohol or drug abuse patient.[facility] HospitalIn the event this information is protected by the Federal Confidentiality of Alcohol and Drug Abuse Patient Records regulations: The Federal rules restrict any use of the information to criminally investigate or prosecute any alcohol or drug abuse patient.[facility] HospitalIn the event this information is protected by the Federal Confidentiality of Alcohol and Drug Abuse Patient Records regulations: The Federal rules restrict any use of the information to criminally investigate or prosecute any alcohol or drug abuse patient.[facility] HospitalIn the event this information is protected by the Federal Confidentiality of Alcohol and Drug Abuse Patient Records regulations: The Federal rules restrict any use of the information to criminally investigate or prosecute any alcohol or drug abuse patient.[facility] HospitalIn the event this information is protected by the Federal Confidentiality of Alcohol and Drug Abuse Patient Records regulations: The Federal rules restrict any use of the information to criminally investigate or prosecute any alcohol or drug abuse patient.[facility] HospitalIn the event this information is protected by the Federal Confidentiality of Alcohol and Drug Abuse Patient Records regulations: The Federal rules restrict any use of the information to criminally investigate or prosecute any alcohol or drug abuse patient.[facility]In the event this information is protected by the Federal Confidentiality of Alcohol and Drug Abuse Patient Records regulations: The Federal rules restrict any use of the information to criminally investigate or prosecute any alcohol or drug abuse patient.[facility] HospitalIn the event this information is protected by the Federal Confidentiality of Alcohol and Drug Abuse Patient Records regulations: The Federal rules restrict any use of the information to criminally investigate or prosecute any alcohol or drug abuse patient.[facility] HospitalIn the event this information is protected by the Federal Confidentiality of Alcohol and Drug Abuse Patient Records regulations: The Federal rules restrict any use of the information to criminally investigate or prosecute any alcohol or drug abuse patient.[facility] HospitalIn the event this information is protected by the Federal Confidentiality of Alcohol and Drug Abuse Patient Records regulations: The Federal rules restrict any use of the information to criminally investigate or prosecute any alcohol or drug abuse patient.[facility]In the event this information is protected by the Federal Confidentiality of Alcohol and Drug Abuse Patient Records regulations: The Federal rules restrict any use of the information to criminally investigate or prosecute any alcohol or drug abuse patient.[facility] HospitalIn the event this information is protected by the Federal Confidentiality of Alcohol and Drug Abuse Patient Records regulations: The Federal rules restrict any use of the information to criminally investigate or prosecute any alcohol or drug abuse patient.[facility]In the event this information is protected by the Federal Confidentiality of Alcohol and Drug Abuse Patient Records regulations: The Federal rules restrict any use of the information to criminally investigate or prosecute any alcohol or drug abuse patient.[facility] HospitalIn the event this information is protected by the Federal Confidentiality of Alcohol and Drug Abuse Patient Records regulations: The Federal rules restrict any use of the information to criminally investigate or prosecute any alcohol or drug abuse patient.[facility]In the event this information is protected by the Federal Confidentiality of Alcohol and Drug Abuse Patient Records regulations: The Federal rules restrict any use of the information to criminally investigate or prosecute any alcohol or drug abuse patient.[facility] HospitalIn the event this information is protected by the Federal Confidentiality of Alcohol and Drug Abuse Patient Records regulations: The Federal rules restrict any use of the information to criminally investigate or prosecute any alcohol or drug abuse patient.[facility] HospitalIn the event this information is protected by the Federal Confidentiality of Alcohol and Drug Abuse Patient Records regulations: The Federal rules restrict any use of the information to criminally investigate or prosecute any alcohol or drug abuse patient.[facility] HospitalIn the event this information is protected by the Federal Confidentiality of Alcohol and Drug Abuse Patient Records regulations: The Federal rules restrict any use of the information to criminally investigate or prosecute any alcohol or drug abuse patient.[facility] HospitalIn the event this information is protected by the Federal Confidentiality of Alcohol and Drug Abuse Patient Records regulations: The Federal rules restrict any use of the information to criminally investigate or prosecute any alcohol or drug abuse patient.[facility] HospitalIn the event this information is protected by the Federal Confidentiality of Alcohol and Drug Abuse Patient Records regulations: The Federal rules restrict any use of the information to criminally investigate or prosecute any alcohol or drug abuse patient.[facility]In the event this information is protected by the Federal Confidentiality of Alcohol and Drug Abuse Patient Records regulations: The Federal rules restrict any use of the information to criminally investigate or prosecute any alcohol or drug abuse patient.[facility]In the event this information is protected by the Federal Confidentiality of Alcohol and Drug Abuse Patient Records regulations: The Federal rules restrict any use of the information to criminally investigate or prosecute any alcohol or drug abuse patient.[facility] HospitalIn the event this information is protected by the Federal Confidentiality of Alcohol and Drug Abuse Patient Records regulations: The Federal rules restrict any use of the information to criminally investigate or prosecute any alcohol or drug abuse patient.[facility] HospitalIn the event this information is protected by the Federal Confidentiality of Alcohol and Drug Abuse Patient Records regulations: The Federal rules restrict any use of the information to criminally investigate or prosecute any alcohol or drug abuse patient.[facility] HospitalIn the event this information is protected by the Federal Confidentiality of Alcohol and Drug Abuse Patient Records regulations: The Federal rules restrict any use of the information to criminally investigate or prosecute any alcohol or drug abuse patient.[facility]In the event this information is protected by the Federal Confidentiality of Alcohol and Drug Abuse Patient Records regulations: The Federal rules restrict any use of the information to criminally investigate or prosecute any alcohol or drug abuse patient.[facility] HospitalIn the event this information is protected by the Federal Confidentiality of Alcohol and Drug Abuse Patient Records regulations: The Federal rules restrict any use of the information to criminally investigate or prosecute any alcohol or drug abuse patient.[facility] HospitalIn the event this information is protected by the Federal Confidentiality of Alcohol and Drug Abuse Patient Records regulations: The Federal rules restrict any use of the information to criminally investigate or prosecute any alcohol or drug abuse patient.[facility] HospitalIn the event this information is protected by the Federal Confidentiality of Alcohol and Drug Abuse Patient Records regulations: The Federal rules restrict any use of the information to criminally investigate or prosecute any alcohol or drug abuse patient.[facility]In the event this information is protected by the Federal Confidentiality of Alcohol and Drug Abuse Patient Records regulations: The Federal rules restrict any use of the information to criminally investigate or prosecute any alcohol or drug abuse patient.[facility]In the event this information is protected by the Federal Confidentiality of Alcohol and Drug Abuse Patient Records regulations: The Federal rules restrict any use of the information to criminally investigate or prosecute any alcohol or drug abuse patient.[facility]In the event this information is protected by the Federal Confidentiality of Alcohol and Drug Abuse Patient Records regulations: The Federal rules restrict any use of the information to criminally investigate or prosecute any alcohol or drug abuse patient.[facility]In the event this information is protected by the Federal Confidentiality of Alcohol and Drug Abuse Patient Records regulations: The Federal rules restrict any use of the information to criminally investigate or prosecute any alcohol or drug abuse patient.[facility]In the event this information is protected by the Federal Confidentiality of Alcohol and Drug Abuse Patient Records regulations: The Federal rules restrict any use of the information to criminally investigate or prosecute any alcohol or drug abuse patient.[facility]In the event this information is protected by the Federal Confidentiality of Alcohol and Drug Abuse Patient Records regulations: The Federal rules restrict any use of the information to criminally investigate or prosecute any alcohol or drug abuse patient.[facility]In the event this information is protected by the Federal Confidentiality of Alcohol and Drug Abuse Patient Records regulations: The Federal rules restrict any use of the information to criminally investigate or prosecute any alcohol or drug abuse patient.[facility]In the event this information is protected by the Federal Confidentiality of Alcohol and Drug Abuse Patient Records regulations: The Federal rules restrict any use of the information to criminally investigate or prosecute any alcohol or drug abuse patient.[facility]In the event this information is protected by the Federal Confidentiality of Alcohol and Drug Abuse Patient Records regulations: The Federal rules restrict any use of the information to criminally investigate or prosecute any alcohol or drug abuse patient.[facility]In the event this information is protected by the Federal Confidentiality of Alcohol and Drug Abuse Patient Records regulations: The Federal rules restrict any use of the information to criminally investigate or prosecute any alcohol or drug abuse patient.[facility]In the event this information is protected by the Federal Confidentiality of Alcohol and Drug Abuse Patient Records regulations: The Federal rules restrict any use of the information to criminally investigate or prosecute any alcohol or drug abuse patient.[facility]In the event this information is protected by the Federal Confidentiality of Alcohol and Drug Abuse Patient Records regulations: The Federal rules restrict any use of the information to criminally investigate or prosecute any alcohol or drug abuse patient.[facility]In the event this information is protected by the Federal Confidentiality of Alcohol and Drug Abuse Patient Records regulations: The Federal rules restrict any use of the information to criminally investigate or prosecute any alcohol or drug abuse patient.[facility]In the event this information is protected by the Federal Confidentiality of Alcohol and Drug Abuse Patient Records regulations: The Federal rules restrict any use of the information to criminally investigate or prosecute any alcohol or drug abuse patient.[facility]In the event this information is protected by the Federal Confidentiality of Alcohol and Drug Abuse Patient Records regulations: The Federal rules restrict any use of the information to criminally investigate or prosecute any alcohol or drug abuse patient.[facility]In the event this information is protected by the Federal Confidentiality of Alcohol and Drug Abuse Patient Records regulations: The Federal rules restrict any use of the information to criminally investigate or prosecute any alcohol or drug abuse patient.[facility]In the event this information is protected by the Federal Confidentiality of Alcohol and Drug Abuse Patient Records regulations: The Federal rules restrict any use of the information to criminally investigate or prosecute any alcohol or drug abuse patient.[facility]In the event this information is protected by the Federal Confidentiality of Alcohol and Drug Abuse Patient Records regulations: The Federal rules restrict any use of the information to criminally investigate or prosecute any alcohol or drug abuse patient.[facility]In the event this information is protected by the Federal Confidentiality of Alcohol and Drug Abuse Patient Records regulations: The Federal rules restrict any use of the information to criminally investigate or prosecute any alcohol or drug abuse patient.[facility]In the event this information is protected by the Federal Confidentiality of Alcohol and Drug Abuse Patient Records regulations: The Federal rules restrict any use of the information to criminally investigate or prosecute any alcohol or drug abuse patient.[facility]In the event this information is protected by the Federal Confidentiality of Alcohol and Drug Abuse Patient Records regulations: The Federal rules restrict any use of the information to criminally investigate or prosecute any alcohol or drug abuse patient.[facility]In the event this information is protected by the Federal Confidentiality of Alcohol and Drug Abuse Patient Records regulations: The Federal rules restrict any use of the information to criminally investigate or prosecute any alcohol or drug abuse patient.[facility]In the event this information is protected by the Federal Confidentiality of Alcohol and Drug Abuse Patient Records regulations: The Federal rules restrict any use of the information to criminally investigate or prosecute any alcohol or drug abuse patient.[facility]In the event this information is protected by the Federal Confidentiality of Alcohol and Drug Abuse Patient Records regulations: The Federal rules restrict any use of the information to criminally investigate or prosecute any alcohol or drug abuse patient.[facility]In the event this information is protected by the Federal Confidentiality of Alcohol and Drug Abuse Patient Records regulations: The Federal rules restrict any use of the information to criminally investigate or prosecute any alcohol or drug abuse patient.[facility]In the event this information is protected by the Federal Confidentiality of Alcohol and Drug Abuse Patient Records regulations: The Federal rules restrict any use of the information to criminally investigate or prosecute any alcohol or drug abuse patient.[facility]In the event this information is protected by the Federal Confidentiality of Alcohol and Drug Abuse Patient Records regulations: The Federal rules restrict any use of the information to criminally investigate or prosecute any alcohol or drug abuse patient.[facility]In the event this information is protected by the Federal Confidentiality of Alcohol and Drug Abuse Patient Records regulations: The Federal rules restrict any use of the information to criminally investigate or prosecute any alcohol or drug abuse patient.[facility]In the event this information is protected by the Federal Confidentiality of Alcohol and Drug Abuse Patient Records regulations: The Federal rules restrict any use of the information to criminally investigate or prosecute any alcohol or drug abuse patient.[facility]In the event this information is protected by the Federal Confidentiality of Alcohol and Drug Abuse Patient Records regulations: The Federal rules restrict any use of the information to criminally investigate or prosecute any alcohol or drug abuse patient.[facility]In the event this information is protected by the Federal Confidentiality of Alcohol and Drug Abuse Patient Records regulations: The Federal rules restrict any use of the information to criminally investigate or prosecute any alcohol or drug abuse patient.[facility]In the event this information is protected by the Federal Confidentiality of Alcohol and Drug Abuse Patient Records regulations: The Federal rules restrict any use of the information to criminally investigate or prosecute any alcohol or drug abuse patient.[facility]In the event this information is protected by the Federal Confidentiality of Alcohol and Drug Abuse Patient Records regulations: The Federal rules restrict any use of the information to criminally investigate or prosecute any alcohol or drug abuse patient.[facility]In the event this information is protected by the Federal Confidentiality of Alcohol and Drug Abuse Patient Records regulations: The Federal rules restrict any use of the information to criminally investigate or prosecute any alcohol or drug abuse patient.[facility]In the event this information is protected by the Federal Confidentiality of Alcohol and Drug Abuse Patient Records regulations: The Federal rules restrict any use of the information to criminally investigate or prosecute any alcohol or drug abuse patient.[facility]In the event this information is protected by the Federal Confidentiality of Alcohol and Drug Abuse Patient Records regulations: The Federal rules restrict any use of the information to criminally investigate or prosecute any alcohol or drug abuse patient.[facility]In the event this information is protected by the Federal Confidentiality of Alcohol and Drug Abuse Patient Records regulations: The Federal rules restrict any use of the information to criminally investigate or prosecute any alcohol or drug abuse patient.[facility]In the event this information is protected by the Federal Confidentiality of Alcohol and Drug Abuse Patient Records regulations: The Federal rules restrict any use of the information to criminally investigate or prosecute any alcohol or drug abuse patient.[facility]In the event this information is protected by the Federal Confidentiality of Alcohol and Drug Abuse Patient Records regulations: The Federal rules restrict any use of the information to criminally investigate or prosecute any alcohol or drug abuse patient.[facility]In the event this information is protected by the Federal Confidentiality of Alcohol and Drug Abuse Patient Records regulations: The Federal rules restrict any use of the information to criminally investigate or prosecute any alcohol or drug abuse patient.[facility]In the event this information is protected by the Federal Confidentiality of Alcohol and Drug Abuse Patient Records regulations: The Federal rules restrict any use of the information to criminally investigate or prosecute any alcohol or drug abuse patient.[facility]In the event this information is protected by the Federal Confidentiality of Alcohol and Drug Abuse Patient Records regulations: The Federal rules restrict any use of the information to criminally investigate or prosecute any alcohol or drug abuse patient.[facility]In the event this information is protected by the Federal Confidentiality of Alcohol and Drug Abuse Patient Records regulations: The Federal rules restrict any use of the information to criminally investigate or prosecute any alcohol or drug abuse patient.[facility]In the event this information is protected by the Federal Confidentiality of Alcohol and Drug Abuse Patient Records regulations: The Federal rules restrict any use of the information to criminally investigate or prosecute any alcohol or drug abuse patient.[facility]In the event this information is protected by the Federal Confidentiality of Alcohol and Drug Abuse Patient Records regulations: The Federal rules restrict any use of the information to criminally investigate or prosecute any alcohol or drug abuse patient.[facility]In the event this information is protected by the Federal Confidentiality of Alcohol and Drug Abuse Patient Records regulations: The Federal rules restrict any use of the information to criminally investigate or prosecute any alcohol or drug abuse patient.[facility]In the event this information is protected by the Federal Confidentiality of Alcohol and Drug Abuse Patient Records regulations: The Federal rules restrict any use of the information to criminally investigate or prosecute any alcohol or drug abuse patient.[facility]In the event this information is protected by the Federal Confidentiality of Alcohol and Drug Abuse Patient Records regulations: The Federal rules restrict any use of the information to criminally investigate or prosecute any alcohol or drug abuse patient.[facility]In the event this information is protected by the Federal Confidentiality of Alcohol and Drug Abuse Patient Records regulations: The Federal rules restrict any use of the information to criminally investigate or prosecute any alcohol or drug abuse patient.[facility]In the event this information is protected by the Federal Confidentiality of Alcohol and Drug Abuse Patient Records regulations: The Federal rules restrict any use of the information to criminally investigate or prosecute any alcohol or drug abuse patient.[facility]In the event this information is protected by the Federal Confidentiality of Alcohol and Drug Abuse Patient Records regulations: The Federal rules restrict any use of the information to criminally investigate or prosecute any alcohol or drug abuse patient.[facility]In the event this information is protected by the Federal Confidentiality of Alcohol and Drug Abuse Patient Records regulations: The Federal rules restrict any use of the information to criminally investigate or prosecute any alcohol or drug abuse patient.[facility]In the event this information is protected by the Federal Confidentiality of Alcohol and Drug Abuse Patient Records regulations: The Federal rules restrict any use of the information to criminally investigate or prosecute any alcohol or drug abuse patient.[facility]In the event this information is protected by the Federal Confidentiality of Alcohol and Drug Abuse Patient Records regulations: The Federal rules restrict any use of the information to criminally investigate or prosecute any alcohol or drug abuse patient.[facility]In the event this information is protected by the Federal Confidentiality of Alcohol and Drug Abuse Patient Records regulations: The Federal rules restrict any use of the information to criminally investigate or prosecute any alcohol or drug abuse patient.[facility]In the event this information is protected by the Federal Confidentiality of Alcohol and Drug Abuse Patient Records regulations: The Federal rules restrict any use of the information to criminally investigate or prosecute any alcohol or drug abuse patient.[facility] HospitalIn the event this information is protected by the Federal Confidentiality of Alcohol and Drug Abuse Patient Records regulations: The Federal rules restrict any use of the information to criminally investigate or prosecute any alcohol or drug abuse patient.[facility] HospitalIn the event this information is protected by the Federal Confidentiality of Alcohol and Drug Abuse Patient Records regulations: The Federal rules restrict any use of the information to criminally investigate or prosecute any alcohol or drug abuse patient.[facility] HospitalIn the event this information is protected by the Federal Confidentiality of Alcohol and Drug Abuse Patient Records regulations: The Federal rules restrict any use of the information to criminally investigate or prosecute any alcohol or drug abuse patient.[facility] HospitalIn the event this information is protected by the Federal Confidentiality of Alcohol and Drug Abuse Patient Records regulations: The Federal rules restrict any use of the information to criminally investigate or prosecute any alcohol or drug abuse patient.[facility] HospitalIn the event this information is protected by the Federal Confidentiality of Alcohol and Drug Abuse Patient Records regulations: The Federal rules restrict any use of the information to criminally investigate or prosecute any alcohol or drug abuse patient.[facility] HospitalIn the event this information is protected by the Federal Confidentiality of Alcohol and Drug Abuse Patient Records regulations: The Federal rules restrict any use of the information to criminally investigate or prosecute any alcohol or drug abuse patient.[facility] HospitalIn the event this information is protected by the Federal Confidentiality of Alcohol and Drug Abuse Patient Records regulations: The Federal rules restrict any use of the information to criminally investigate or prosecute any alcohol or drug abuse patient.[facility] HospitalIn the event this information is protected by the Federal Confidentiality of Alcohol and Drug Abuse Patient Records regulations: The Federal rules restrict any use of the information to criminally investigate or prosecute any alcohol or drug abuse patient.[facility] HospitalIn the event this information is protected by the Federal Confidentiality of Alcohol and Drug Abuse Patient Records regulations: The Federal rules restrict any use of the information to criminally investigate or prosecute any alcohol or drug abuse patient.[facility] HospitalIn the event this information is protected by the Federal Confidentiality of Alcohol and Drug Abuse Patient Records regulations: The Federal rules restrict any use of the information to criminally investigate or prosecute any alcohol or drug abuse patient.[facility] HospitalIn the event this information is protected by the Federal Confidentiality of Alcohol and Drug Abuse Patient Records regulations: The Federal rules restrict any use of the information to criminally investigate or prosecute any alcohol or drug abuse patient.[facility] HospitalIn the event this information is protected by the Federal Confidentiality of Alcohol and Drug Abuse Patient Records regulations: The Federal rules restrict any use of the information to criminally investigate or prosecute any alcohol or drug abuse patient.[facility] HospitalIn the event this information is protected by the Federal Confidentiality of Alcohol and Drug Abuse Patient Records regulations: The Federal rules restrict any use of the information to criminally investigate or prosecute any alcohol or drug abuse patient.[facility] HospitalIn the event this information is protected by the Federal Confidentiality of Alcohol and Drug Abuse Patient Records regulations: The Federal rules restrict any use of the information to criminally investigate or prosecute any alcohol or drug abuse patient.[facility] HospitalIn the event this information is protected by the Federal Confidentiality of Alcohol and Drug Abuse Patient Records regulations: The Federal rules restrict any use of the information to criminally investigate or prosecute any alcohol or drug abuse patient.[facility] HospitalIn the event this information is protected by the Federal Confidentiality of Alcohol and Drug Abuse Patient Records regulations: The Federal rules restrict any use of the information to criminally investigate or prosecute any alcohol or drug abuse patient.[facility] HospitalIn the event this information is protected by the Federal Confidentiality of Alcohol and Drug Abuse Patient Records regulations: The Federal rules restrict any use of the information to criminally investigate or prosecute any alcohol or drug abuse patient.[facility] HospitalIn the event this information is protected by the Federal Confidentiality of Alcohol and Drug Abuse Patient Records regulations: The Federal rules restrict any use of the information to criminally investigate or prosecute any alcohol or drug abuse patient.[facility] HospitalIn the event this information is protected by the Federal Confidentiality of Alcohol and Drug Abuse Patient Records regulations: The Federal rules restrict any use of the information to criminally investigate or prosecute any alcohol or drug abuse patient.[facility] HospitalIn the event this information is protected by the Federal Confidentiality of Alcohol and Drug Abuse Patient Records regulations: The Federal rules restrict any use of the information to criminally investigate or prosecute any alcohol or drug abuse patient.[facility] HospitalIn the event this information is protected by the Federal Confidentiality of Alcohol and Drug Abuse Patient Records regulations: The Federal rules restrict any use of the information to criminally investigate or prosecute any alcohol or drug abuse patient.[facility] HospitalIn the event this information is protected by the Federal Confidentiality of Alcohol and Drug Abuse Patient Records regulations: The Federal rules restrict any use of the information to criminally investigate or prosecute any alcohol or drug abuse patient.[facility] HospitalIn the event this information is protected by the Federal Confidentiality of Alcohol and Drug Abuse Patient Records regulations: The Federal rules restrict any use of the information to criminally investigate or prosecute any alcohol or drug abuse patient.[facility] HospitalIn the event this information is protected by the Federal Confidentiality of Alcohol and Drug Abuse Patient Records regulations: The Federal rules restrict any use of the information to criminally investigate or prosecute any alcohol or drug abuse patient.[facility] HospitalIn the event this information is protected by the Federal Confidentiality of Alcohol and Drug Abuse Patient Records regulations: The Federal rules restrict any use of the information to criminally investigate or prosecute any alcohol or drug abuse patient.[facility] HospitalIn the event this information is protected by the Federal Confidentiality of Alcohol and Drug Abuse Patient Records regulations: The Federal rules restrict any use of the information to criminally investigate or prosecute any alcohol or drug abuse patient.[facility] HospitalIn the event this information is protected by the Federal Confidentiality of Alcohol and Drug Abuse Patient Records regulations: The Federal rules restrict any use of the information to criminally investigate or prosecute any alcohol or drug abuse patient.[facility] HospitalIn the event this information is protected by the Federal Confidentiality of Alcohol and Drug Abuse Patient Records regulations: The Federal rules restrict any use of the information to criminally investigate or prosecute any alcohol or drug abuse patient.[facility] HospitalIn the event this information is protected by the Federal Confidentiality of Alcohol and Drug Abuse Patient Records regulations: The Federal rules restrict any use of the information to criminally investigate or prosecute any alcohol or drug abuse patient.[facility] HospitalIn the event this information is protected by the Federal Confidentiality of Alcohol and Drug Abuse Patient Records regulations: The Federal rules restrict any use of the information to criminally investigate or prosecute any alcohol or drug abuse patient.[facility] HospitalIn the event this information is protected by the Federal Confidentiality of Alcohol and Drug Abuse Patient Records regulations: The Federal rules restrict any use of the information to criminally investigate or prosecute any alcohol or drug abuse patient.[facility] HospitalIn the event this information is protected by the Federal Confidentiality of Alcohol and Drug Abuse Patient Records regulations: The Federal rules restrict any use of the information to criminally investigate or prosecute any alcohol or drug abuse patient.[facility] HospitalIn the event this information is protected by the Federal Confidentiality of Alcohol and Drug Abuse Patient Records regulations: The Federal rules restrict any use of the information to criminally investigate or prosecute any alcohol or drug abuse patient.[facility] HospitalIn the event this information is protected by the Federal Confidentiality of Alcohol and Drug Abuse Patient Records regulations: The Federal rules restrict any use of the information to criminally investigate or prosecute any alcohol or drug abuse patient.[facility] HospitalIn the event this information is protected by the Federal Confidentiality of Alcohol and Drug Abuse Patient Records regulations: The Federal rules restrict any use of the information to criminally investigate or prosecute any alcohol or drug abuse patient.[facility] HospitalIn the event this information is protected by the Federal Confidentiality of Alcohol and Drug Abuse Patient Records regulations: The Federal rules restrict any use of the information to criminally investigate or prosecute any alcohol or drug abuse patient.[facility] HospitalIn the event this information is protected by the Federal Confidentiality of Alcohol and Drug Abuse Patient Records regulations: The Federal rules restrict any use of the information to criminally investigate or prosecute any alcohol or drug abuse patient.[facility] HospitalIn the event this information is protected by the Federal Confidentiality of Alcohol and Drug Abuse Patient Records regulations: The Federal rules restrict any use of the information to criminally investigate or prosecute any alcohol or drug abuse patient.[facility] HospitalIn the event this information is protected by the Federal Confidentiality of Alcohol and Drug Abuse Patient Records regulations: The Federal rules restrict any use of the information to criminally investigate or prosecute any alcohol or drug abuse patient.[facility] HospitalIn the event this information is protected by the Federal Confidentiality of Alcohol and Drug Abuse Patient Records regulations: The Federal rules restrict any use of the information to criminally investigate or prosecute any alcohol or drug abuse patient.[facility] HospitalIn the event this information is protected by the Federal Confidentiality of Alcohol and Drug Abuse Patient Records regulations: The Federal rules restrict any use of the information to criminally investigate or prosecute any alcohol or drug abuse patient.[facility] HospitalIn the event this information is protected by the Federal Confidentiality of Alcohol and Drug Abuse Patient Records regulations: The Federal rules restrict any use of the information to criminally investigate or prosecute any alcohol or drug abuse patient.[facility] HospitalIn the event this information is protected by the Federal Confidentiality of Alcohol and Drug Abuse Patient Records regulations: The Federal rules restrict any use of the information to criminally investigate or prosecute any alcohol or drug abuse patient.[facility] HospitalIn the event this information is protected by the Federal Confidentiality of Alcohol and Drug Abuse Patient Records regulations: The Federal rules restrict any use of the information to criminally investigate or prosecute any alcohol or drug abuse patient.[facility] HospitalIn the event this information is protected by the Federal Confidentiality of Alcohol and Drug Abuse Patient Records regulations: The Federal rules restrict any use of the information to criminally investigate or prosecute any alcohol or drug abuse patient.[facility] Reason for Visit (unrecogniz ed section and content) Reason Comments Physical Therapy Specialty Diagnoses / Procedures Referred By George t Referred To Contact [facility] Diagnoses Gait difficulty Complaints of leg weakness Procedures PT REHAB FOLLOW UP ORDER THERAPEUTIC EXERCISES RE, EA 15 MIN. Bradford John, SURGICAL SUPERVISOR.CLEANING VALIDATION CONSULTANT [address] [place] [address] [facility] [address] [address] Referral ID Status Reason Start Date Expiration Date Visits Requested Visits Authorized [id number] Authorized PCP Requested Referral Auto-Generate d Referral [...] EA 15 MIN. 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 Reason Comments Right Knee Pain Knee Replacement Specialty Diagnoses / Procedures Referred By Contac t Referred To Contact XR IMAGING Diagnoses Right knee pain, unspecified chronicity Procedures XR KNEE POST OP 3V AP/LAT/MERCHANT RIGHT RADIOLOGIC EXAMINATION KNEE 3 VIEWS Rigoberto Chase, SURGICAL SUPERVISOR.HSE MANAGER [address] [address] Xr Imaging Referral ID Status Reason Start Date Expiration Date V isits Requested Visits Authorized [id number] Closed Auto-Generate d Referral 07/18/2021 08/16/2022 1 [...] INJECTION, ZOLEDRONIC ACID, 1 MG Raphael Perdomo, SURGICAL SUPERVISOR.HSE MANAGER [address] [place] [address] [facility] [address] [place] [address] Referral ID Status Reason Start Date Expiration Date V isits Requested Visits Authorized [id number] Authorized 11/17/2020 05/17/2022 3 3 Reason Comments PT Eval Patient Education Specialty Diagnoses / Procedures Referred By Contac t Referred To Contact Physical Therapy / PHYSICAL THERAPY Diagnoses Posterior tibial tendinitis, right leg INSUFFICIENCY OF RIGHT POSTERIOR TIBIAL TENDON (m76.821) Procedures PHYSICAL THERAPY EVALUATION HIGH COMPLEX 45 MINS NEW RS PT ORTH Salome Guerrier MD [address] [place] [address] Julianne Saab, PT [address] [place] [address] Referral ID Status Reason Start Date Expiration Date Visits Re quested Visits Authorized [id number] Closed 10/22/2021 04/27/2022 1 1 Specialty Diagnoses / Procedures Referred By Contac t Referred To Contact Physical Therapy / PHYSICAL THERAPY Diagnoses Posterior tibial tendinitis, right leg INSUFFICIENCY OF RIGHT POSTERIOR TIBIAL TENDON (m76.821) Procedures PHYSICAL THERAPY EVALUATION HIGH COMPLEX 45 MINS NEW RS PT ORTH Salome Guerrier MD [address] [place] [address] Julianne Saab, PT [address] [place] [address] Reason Comments Established Patient Reason Comments Yearly [...] BREAST INC CAD Sheela Celeste PA-C [address] [place] [address] [facility] [address] [place] [address] Referral ID Status Reason Start Date Expiration Date V isits Requested Visits Authorized [id number] Closed Auto-Generate d Referral 11/29/2021 12/29/2022 1 1 Reason Comments Medical Clearance Received fax request for surgical clearance from [facility] - scanned into Epic Reason Comments Patient Question Reason Comments F/U 6 months Reason Comments Patient Question Patient called and h ad question about inplants after radiation. 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 [facility] Reason Onset Date Comments Refill Request 12/04/2021 Reason Comments Pre-Op Exam Reason Comments Appointment Specialty Diagnoses / Procedures Referred By [facility] Referred To Contact Diagnoses Osteoporosis, unspecified Malignant neoplasm of unspecified site of left female breast Procedures INJECTION, ZOLEDRONIC ACID, 1 MG Raphael Perdomo, SURGICAL SUPERVISOR.HSE MANAGER [address] [place] [address] [facility] [address] [place] [address] Referral ID Status Reason Start Date Expiration Date V isits Requested Visits Authorized [id number] Authorized 11/17/2020 05/17/2022 4 4 Reason Onset [...] HEAD W & WO CONTRAST Gamaliel Reardon, SURGICAL SUPERVISOR.HSE MANAGER [address] [place] [address] [place] [address] Referral ID Status Reason Start Date Expiration Date V isits Requested Visits Authorized [id number] Closed Auto-Generate d Referral 02/18/2022 03/20/2022 1 1 Reason Comments 3 mo follow up Reason Comments results Reason Comments F/U 3 Month Referral ID Status Reason Start Date Expiration Date V isits Requested Visits Authorized [id number] Authorized 11/17/2020 08/24/2024 10 10 Reason Comments Refill Request Reason Comments Radiology CT Specialty Diagnoses / Procedures Referred By Contac t Referred To Contact CT IMAGING Diagnoses History of abdominal surgery Abdominal pain, chronic, generalized Procedures CT ABD/PEL WO IVCON CT ABD & PELVIS W/O CONTRAST Bradford John, SURGICAL SUPERVISOR.CLEANING VALIDATION CONSULTANT [address] [place] [address] [place] [address] Referral ID Status Reason Start Date Expiration Date V isits Requested Visits Authorized [id number] Closed Auto-Generate d Referral 09/23/2023 10/23/2023 2 1 Reason Comments PT Eval Specialty Diagnoses / Procedures Referred By Contac t Referred To Contact [facility] Diagnoses Gait difficulty Complaints of leg weakness Procedures CONSULT TO PHYSICAL THERAPY PHYSICAL THERAPY EVALUATION HIGH COMPLEX 45 MINS Bradford John, SURGICAL SUPERVISOR.CLEANING VALIDATION CONSULTANT [address] [place] [address] [facility] [address] [address] Referral ID Status Reason Start Date Expiration Date V isits Requested Visits Authorized [id number] Closed Auto-Generate d Referral 04/28/2023 04/27/2024 1 1 Reason Comments F/U 3 Month Reason Comments Fall Has swelling in Left ankle, foot, bruising down leg, d/t hx pt has no feeling knee down Reason Comments Concerned for pt-see note Vomiting Shortness of Breath Referral ID Status Reason Start Date Expiration Date V isits Requested Visits Authorized [id number] Closed PCP Requested Referral Auto-Generated Referral 10/01/2023 01/26/2024 8 8 Reason Comments Results Reason Comments Medication Question Reason Comments PT Progress Note Specialty Diagnoses / Procedures Referred By Contac t Referred To Contact [facility] Diagnoses Gait difficulty Complaints of leg weakness Procedures PT REHAB FOLLOW UP ORDER THERAPEUTIC EXERCISES RE, EA 15 MIN. Bradford John, SURGICAL SUPERVISOR.CLEANING VALIDATION CONSULTANT [address] [place] [address] [facility] [address] [address] Specialty Diagnoses / Procedures Referred By Contac t Referred To Contact [facility] Diagnoses Complaints of leg weakness Gait difficulty Procedures PT REHAB FOLLOW UP ORDER THERAPEUTIC EXERCISES RE, EA 15 MIN. Bradford John, SHAHID.CLEANING VALIDATION CONSULTANT [address] [place] [address] [facility] [address] [address] Referral ID Status Reason Start Date Expiration Date Visits Requested Visits Authorized [id number] Authorized PCP Requested Referral Auto-Generate d Referral 11/27/2023 02/27/2024 8 8 Specialty Diagnoses / Procedures Referred By Contac t Referred To Contact [facility] Diagnoses Complaints of leg weakness Gait difficulty Procedures PT REHAB FOLLOW UP ORDER THERAPEUTIC EXERCISES RE, EA 15 MIN. Bradford John APRN.CLEANING VALIDATION CONSULTANT [address] [place] [address] [address] Reason Comments Medicare Wellness Exam Reason Comments [...] MAMMOGRAPHY COMPUTER-AIDED DETCJ BI Sheela Celeste PA-C [address] [place] [address] [facility] [address] [place] [id number] Referral ID Status Reason Start Date Expiration Date V isits Requested Visits Authorized [id number] Closed Auto-Generate d Referral 12/24/2022 01/23/2024 1 [...] aneurysm (HCC) Procedures CONSULT TO NEUROLOGY OFFICE/OUTPATIENT [facility] 60 MINUTES Melani Zuniga, SURGICAL SUPERVISOR.HSE MANAGER [address] [place] [address] Phone: tel: fax: Referral ID Status Reason Start Date Expiration Date V isits Requested Visits Authorized [id number] Closed PCP Requested Referral 07/22/2024 07/21/2025 1 1 Reason Onset Date Comments Refill Request 08/17/2024 Reason Onset Date Comments Transition Of Care 09/01/2024 Reason Comments Hospital Follow Up Reason Onset Date Comments Population Health Navigation Outreach 09/22/2024 Healthy at Home - [facility] Reason Onset Date Comments Transition Of Care 10/13/2024 TCM Initial O utreachDischarged 10/12/24 [place] Reason Onset Date Comments Transition Of Care 10/13/2024 Inbound call Reason Onset Date Comments Transition Of Care 10/13/2024 TCM Outreach Reason Comments Ambulatory Social Work Food resources Reason Comments Home Health Orders Reason Comments Ambulatory Social Work Food insecurity Reason Comments Ambulatory Social Work Care concerns Reason Comments Ambulatory Social Work Screen for food i nsecurity Reason Comments Release Of Medical Records Reason Comments Ambulatory Social Work Reason Comments UTI Reason Comments Follow for HH Reason Onset Date Comments Results 12/16/2024 Care Teams (unrecognized sec tion and content) Laundry Technician Relationship Specialty Start Date End Date Ruddy Cooper MD [address] [place], [place] [id number] PCP - General 02/16/02 Sid Storm MD, MD [address] [place], [place] [id number] Physician Radiation Oncology 02/21/20 Vlad Velasquez MD [address] [facility] [place] [address] Home Care Physician Orthopedics 08/08/20 Rigoberto Chase APRN.HSE MANAGER [address] [id number] Referring Orthopedics 08/08/20 Jaimee Bernard, PT [address] [place], [place] [id number] Automatic Grinding Machine Operator Post Acute Care 08/08/20 Laundry Technician Relationship Specialty Start Date End Date Ruddy Cooper MD [address] [place] [address] PCP - General 02/16/02 Sid Storm MD, [address] [place] [address] Physician Radiation Oncology 02/21/20 Vlad Velasquez MD [address] [facility] [address] Home Care Physician Orthopedics 08/08/20 Rigoberto Chase, SHAHID.HSE MANAGER [address] [place] [address] Referring Orthopedics 08/08/20 Jaimee Bernard, PT [address] [place] [address] Automatic Grinding Machine Operator Post Acute Care 08/08/20 Laundry Technician Relationship Specialty Start Date End Date Ruddy Cooper MD [address] [place] [address] PCP - General 02/16/02 Sid Storm MD, [address] [place] [address] Physician Radiation Oncology 02/21/20 Vlad Velasquez MD [address] [place] [address] Home Care Physician Orthopedics 08/08/20 Rigoberto Cahse, SURGICAL SUPERVISOR.HSE MANAGER [address] [place] [address] Referring Orthopedics 08/08/20 Jaimee Bernard, PT [address] [place] [address] Automatic Grinding Machine Operator Post Acute Care 08/08/20 Laundry Technician Relationship Specialty Start Date End Date Ruddy Cooper MD [address] [place] [address] PCP - General 02/16/02 Sid Storm MD, [address] [place] [address] Physician Radiation Oncology 02/21/20 Vlad Velasquez MD [address] [facility] [place] [address] Home Care Physician Orthopedics 08/08/20 Rigoberto Chase, SURGICAL SUPERVISOR.HSE MANAGER [address] [place] [address] Referring Orthopedics 08/08/20 Jaimee Bernard, PT [address] [place] [address] Automatic Grinding Machine Operator Post Acute Care 08/08/20 Laundry Technician Relationship Specialty Start Date End Date Ruddy Cooper MD [address] [place] [address] PCP - General 02/16/02 Sid Storm MD, [address] [place] [address] Physician Radiation Oncology 02/21/20 Vlad Velasquez MD [address] [place] [address] Home Care Physician Orthopedics 08/08/20 Rigoberto Chase, SURGICAL SUPERVISOR.HSE MANAGER [address] [place] [address] Referring Orthopedics 08/08/20 Jaimee Bernard, PT [address] [place] [address] Automatic Grinding Machine Operator Post Acute Care 08/08/20 Laundry Technician Relationship Specialty Start Date End Date Ruddy Cooper MD [address] [place] [address] PCP - General 02/16/02 Sid Storm MD, [address] [place] [address] Physician Radiation Oncology 02/21/20 Vlad Velasquez MD [address] [place] [address] Home Care Physician Orthopedics 08/08/20 Rigoberto Chase, SURGICAL SUPERVISOR.HSE MANAGER [address] [place] [address] Referring Orthopedics 08/08/20 Jaimee Bernard, PT [address] [place] [address] Automatic Grinding Machine Operator Post Acute Care 08/08/20 Laundry Technician Relationship Specialty Start Date End Date Ruddy Cooper MD [address] [place] [address] PCP - General 02/16/02 Sid Storm MD, [address] [place] [address] Physician Radiation Oncology 02/21/20 Vlad Velasquez MD [address] [place] [address] Home Care Physician Orthopedics 08/08/20 Rigoberto Chase, SURGICAL SUPERVISOR.[address] [address] Referring Orthopedics 08/08/20 Jaimee Bernard, PT [address] [place] [address] Automatic Grinding Machine Operator Post Acute Care 08/08/20 Laundry Technician Relationship Specialty Start Date End Date Ruddy Cooper MD [address] [place] [address] PCP - General 02/16/02 Sid Storm MD, [address] [place] [address] Physician Radiation Oncology 02/21/20 Vlad Velasquez MD [address] [facility] [place] [address] Home Care Physician Orthopedics 08/08/20 Rigoberto Chase, SURGICAL SUPERVISOR.[address] [address] Referring Orthopedics 08/08/20 Jaimee Bernard, PT [address] [place] [address] Automatic Grinding Machine Operator Post Acute Care 08/08/20 Laundry Technician Relationship Specialty Start Date End Date Ruddy Cooper MD [address] [place] [address] PCP - General 02/16/02 Sid Storm MD, [address] [place] [address] Physician Radiation Oncology 02/21/20 Vlad Velasquez MD [address] [place] [address] Home Care Physician Orthopedics 08/08/20 Rigoberto Chase, SURGICAL SUPERVISOR.[address], [address] [place] [address] Referring Orthopedics 08/08/20 Jaimee Bernard, PT [address] [place] [address] Automatic Grinding Machine Operator Post Acute Care 08/08/20 Laundry Technician Relationship Specialty Start Date End Date Ruddy Cooper MD [address] [place] [address] PCP - General 02/16/02 Sid Storm MD, [address] [place] [address] Physician Radiation Oncology 02/21/20 Vlad Velasquez MD [address] [facility] [place] [address] Home Care Physician Orthopedics 08/08/20 Rigoberto Chase, SHAHID.[address] [address] Referring Orthopedics 08/08/20 Jaimee Bernard, PT [address] [place] [address] Automatic Grinding Machine Operator Post Acute Care 08/08/20 Laundry Technician Relationship Specialty Start Date End Date Ruddy Cooper MD [address] [place] [address] PCP - General 02/16/02 Sid Storm MD, [address] [place] [address] Physician Radiation Oncology 02/21/20 Vlad Velasquez MD [address]10 [facility] [place] [address] Home Care Physician Orthopedics 08/08/20 Rigoberto Chase, SHAHID.[address] [address] Referring Orthopedics 08/08/20 Jaimee Bernard, PT [address] [place] [address] Automatic Grinding Machine Operator Post Acute Care 08/08/20 Laundry Technician Relationship Specialty Start Date End Date Ruddy Cooper MD [address] [place] [address] PCP - General 02/16/02 Sid Storm MD, [address] [place] [address] Physician Radiation Oncology 02/21/20 Vlad Velasquez MD [address] [place] [address] Home Care Physician Orthopedics 08/08/20 Rigoberto Chase APRN.HSE MANAGER [address] [place] [address] Referring Orthopedics 08/08/20 Jaimee Bernard, PT [address] [place] [address] Automatic Grinding Machine Operator Post Acute Care 08/08/20 Laundry Technician Relationship Specialty Start Date End Date Ruddy Cooper MD [address] [place] [address] PCP - General 02/16/02 iSd Storm MD, [address] [place] [address] Physician Radiation Oncology 02/21/20 Vlad Velasquez MD [address] [place] [address] Home Care Physician Orthopedics 08/08/20 Rigoberto Chase, SURGICAL SUPERVISOR.HSE MANAGER [address] [place] [address] Referring Orthopedics 08/08/20 Jaimee Bernard, PT [address] [place] [address] Automatic Grinding Machine Operator Post Acute Care 08/08/20 Laundry Technician Relationship Specialty Start Date End Date Ruddy Cooper MD [address] [place] [address] PCP - General 02/16/02 Sid Storm MD, [address] [place] [address] Physician Radiation Oncology 02/21/20 Vlad Velasquez MD [address] [place] [address] Home Care Physician Orthopedics 08/08/20 Rigoberto Chase APRN.HSE MANAGER [address] [place] [address] Referring Orthopedics 08/08/20 Jaimee Bernard, PT [address] [place] [address] Automatic Grinding Machine Operator Post Acute Care 08/08/20 Laundry Technician Relationship Specialty Start Date End Date Ruddy Cooper MD [address] [place] [address] PCP - General 02/16/02 Sid Storm MD, [address] [place] [address] Physician Radiation Oncology 02/21/20 Vlad Velasquez MD [address] [place] [address] Home Care Physician Orthopedics 08/08/20 Rigoberto Chase, SURGICAL SUPERVISOR.HSE MANAGER [address] [place] [address] Referring Orthopedics 08/08/20 Jaimee Bernard, PT [address] [place] [address] Automatic Grinding Machine Operator Post Acute Care 08/08/20 Laundry Technician Relationship Specialty Start Date End Date Ruddy Cooper MD [address] [place] [address] PCP - General 02/16/02 Sid Storm MD, [address] [place] [address] Physician Radiation Oncology 02/21/20 Vlad Velasquez MD [address] [place] [address] Home Care Physician Orthopedics 08/08/20 Rigoberto Chase, SURGICAL SUPERVISOR.HSE MANAGER [address] [place] [address] Referring Orthopedics 08/08/20 Jaimee Bernard, PT [address] [place] [address] Automatic Grinding Machine Operator Post Acute Care 08/08/20 Laundry Technician Relationship Specialty Start Date End Date Ruddy Cooper MD [address] [place] [address] PCP - General 02/16/02 Sid Storm MD, [address] [place] [address] Physician Radiation Oncology 02/21/20 Vlad Velasquez MD [address] [place] [address] Home Care Physician Orthopedics 08/08/20 Rigoberto Chase, SHAHID.HSE MANAGER [address] [place] [address] Referring Orthopedics 08/08/20 Jaimee Bernard, PT [address] [place] [address] Automatic Grinding Machine Operator Post Acute Care 08/08/20 Laundry Technician Relationship Specialty Start Date End Date Ruddy Cooper MD [address] [place] [address] PCP - General 02/16/02 Sid Storm MD, [address] [place] [address] Physician Radiation Oncology 02/21/20 Vlad Velasquez MD [address] [place] [address] Home Care Provider Orthopedics 08/08/20 Rigoberto Chase APRN.HSE MANAGER [address] [place] [address] Referring Orthopedics 08/08/20 Jaimee Bernard, PT [address] [place], [place] [phone] Automatic Grinding Machine Operator Post Acute Care 08/08/20 Laundry Technician Relationship Specialty Start Date End Date Ruddy Cooper MD [address] [place] [address] PCP - General 02/16/02 Sid Storm MD, [address] [place] [address] Physician Radiation Oncology 02/21/20 Vlad Velasquez MD [address] [place] [address] Home Care Provider Orthopedics 08/08/20 Rigoberto Chase, SURGICAL SUPERVISOR.HSE MANAGER [address] [place] [address] Referring Orthopedics 08/08/20 Jaimee Bernard, PT [address] [place] [address] Automatic Grinding Machine Operator Post Acute Care 08/08/20 Laundry Technician Relationship Specialty Start Date End Date Ruddy Cooper MD [address] [place] [address] PCP - General 02/16/02 Sid Storm MD, [address] [place] [address] Physician Radiation Oncology 02/21/20 Vlad Velasquez MD [address] [place] [address] Home Care Provider Orthopedics 08/08/20 Rigoberto Chase, SURGICAL SUPERVISOR.HSE MANAGER [address] [place] [address] Referring Orthopedics 08/08/20 Jaimee Bernard, PT [address] [place] [address] Automatic Grinding Machine Operator Post Acute Care 08/08/20 Laundry Technician Relationship Specialty Start Date End Date Ruddy Cooper MD [address] [place] [address] PCP - General 02/16/02 Sid Storm MD, [address] [facility] [place] [address] Physician Radiation Oncology 02/21/20 Vlad Velasquez MD [address] [place] [address] Home Care Provider Orthopedics 08/08/20 Rigoberto Chase, SURGICAL SUPERVISOR.HSE MANAGER [address] [place] [address] Referring Orthopedics 08/08/20 Jaimee Bernard, PT [address] [place] [address] Automatic Grinding Machine Operator Post Acute Care 08/08/20 Laundry Technician Relationship Specialty Start Date End Date Ruddy Cooper MD [address] [place] [address] PCP - General 02/16/02 Sid Storm MD, [address] [place] [address] Physician Radiation Oncology 02/21/20 Vlad Velasquez MD [address] [place] [address] Home Care Provider Orthopedics 08/08/20 Rigoberto Chase, SURGICAL SUPERVISOR.HSE MANAGER [address] [place] [address] Referring Orthopedics 08/08/20 Jaimee Bernard, PT [address] [place] [address] Automatic Grinding Machine Operator Post Acute Care 08/08/20 Laundry Technician Relationship Specialty Start Date End Date Ruddy Cooper MD [address] [place] [address] PCP - General 02/16/02 Sid Storm MD, [address] [facility] [place] [address] Physician Radiation Oncology 02/21/20 Vlad Velasquez MD [address] [facility] [place] [address] Home Care Provider Orthopedics 08/08/20 Rigoberto Chase, SURGICAL SUPERVISOR.[address] [address] Referring Orthopedics 08/08/20 Jaimee Bernard, PT [address] [place] [address] Automatic Grinding Machine Operator Post Acute Care 08/08/20 Laundry Technician Relationship Specialty Start Date End Date Ruddy Cooper MD [address] [place] [address] PCP - General 02/16/02 Sid Storm MD, [address] [place] [address] Physician Radiation Oncology 02/21/20 Vlad Velasquez MD [address] [facility] [place] [address] Home Care Provider Orthopedics 08/08/20 Rigoberto Chase, SURGICAL SUPERVISOR.[address] [address] Referring Orthopedics 08/08/20 Jaimee Bernard, PT [address] [place] [address] Automatic Grinding Machine Operator Post Acute Care 08/08/20 Laundry Technician Relationship Specialty Start Date End Date Ruddy Cooper MD [address] [place] [address] PCP - General 02/16/02 Sid Storm MD, [address] [facility] [place] [address] Physician Radiation Oncology 02/21/20 Vlad Velasquez MD [address] [facility] [place] [address] Home Care Provider Orthopedics 08/08/20 Rigoberto Chase APRN.[address] [address] Referring Orthopedics 08/08/20 Jaimee Bernard, PT [address] [place] [address] Automatic Grinding Machine Operator Post Acute Care 08/08/20 Laundry Technician Relationship Specialty Start Date End Date Ruddy Cooper MD [address] [place] [address] PCP - General 02/16/02 Sid Storm MD, [address] [place] [address] Physician Radiation Oncology 02/21/20 Vlad Velasquez MD [address] [facility] [address] Home Care Provider Orthopedics 08/08/20 Rigoberto Chase APRN.[address] [address] Referring Orthopedics 08/08/20 Jaimee Bernard, PT [address] [place] [address] Automatic Grinding Machine Operator Post Acute Care 08/08/20 Laundry Technician Relationship Specialty Start Date End Date Ruddy Cooper MD [address] [place] [address] PCP - General 02/16/02 Sid Storm MD, [address] [place] [address] Physician Radiation Oncology 02/21/20 Vlad Velasquez MD [address] [place] [address] Home Care Provider Orthopedics 08/08/20 Rigoberto Chase, SHAHID.HSE MANAGER [address] [place] [address] Referring Orthopedics 08/08/20 Jaimee Bernard, PT [address] [place] [address] Automatic Grinding Machine Operator Post Acute Care 08/08/20 Laundry Technician Relationship Specialty Start Date End Date Ruddy Cooper MD [address] [place] [address] PCP - General 02/16/02 Sid Storm MD, [address] [place] [address] Physician Radiation Oncology 02/21/20 Vlad Velasquez MD [address] [facility] [address] Home Care Provider Orthopedics 08/08/20 Rigoberto Chase, SURGICAL SUPERVISOR.HSE MANAGER [address] [place] [address] Referring Orthopedics 08/08/20 Jaimee Bernard, PT [address] [place] [address] Automatic Grinding Machine Operator Post Acute Care 08/08/20 Laundry Technician Relationship Specialty Start Date End Date Ruddy Cooper MD [address] [place] [address] PCP - General 02/16/02 Sid Storm MD, [address] [place] [address] Physician Radiation Oncology 02/21/20 Vlad Velasquez MD [address] [facility] [place] [address] Home Care Provider Orthopedics 08/08/20 Rigoberto Chase APRN.HSE MANAGER [address] [place] [address] Referring Orthopedics 08/08/20 Jaimee Bernard, PT [address] [place] [address] Automatic Grinding Machine Operator Post Acute Care 08/08/20 Laundry Technician Relationship Specialty Start Date End Date Ruddy Cooper MD [address] [place], [place] 696591 PCP - General 02/16/02 Sid Storm MD, [address] [place], [place] [address] Physician Radiation Oncology 02/21/20 Vlad Velasquez MD [address] [place] [address] Home Care Provider Orthopedics 08/08/20 Rigoberto Chase APRN.HSE MANAGER [address] [place] [address] Referring Orthopedics 08/08/20 Jaimee Bernard, PT [address] [place] [address] Automatic Grinding Machine Operator Post Acute Care 08/08/20 Laundry Technician Relationship Specialty Start Date End Date Ruddy Cooper MD [address] [place] [address] PCP - General 02/16/02 Sid Storm MD, [address] [place], [place] [address] Physician Radiation Oncology 02/21/20 Vlad Velasquez MD [address] [place] [address] Home Care Provider Orthopedics 08/08/20 Rigoberto Chase APRN.HSE MANAGER [address] [place] [address] 10568 Referring Orthopedics 08/08/20 Jaimee Bernard, PT [address] [place] [address] Automatic Grinding Machine Operator Post Acute Care 08/08/20 Laundry Technician Relationship Specialty Start Date End Date Ruddy Cooper MD [address] [place], [place] 508681 PCP - General 02/16/02 Sid Storm MD, [address], [place] 556991 Physician Radiation Oncology 02/21/20 Vlad Velasquez MD [address] [place] [address] Home Care Provider Orthopedics 08/08/20 Rigoberto Chase, SURGICAL SUPERVISOR.HSE MANAGER [address] [place] [address] Referring Orthopedics 08/08/20 Laundry Technician Relationship Specialty Start Date End Date Ruddy Cooper MD [address] [place], [place] 747871 PCP - General 02/16/02 Sid Storm MD, [address] [place] [address] Physician Radiation Oncology 02/21/20 Vlad Velasquez MD [address] [place] [address] Home Care Provider Orthopedics 08/08/20 Rigoberto Chase APRN.HSE MANAGER [address] [place] [address]49 Referring Orthopedics 08/08/20 Laundry Technician Relationship Specialty Start Date End Date Ruddy Cooper MD [address] [place] [address] PCP - General 02/16/02 Sid Storm MD, [address] [place] [address] Physician Radiation Oncology 02/21/20 Vlad Velasquez MD [address] [place] [address] Home Care Provider Orthopedics 08/08/20 Rigoberto Chase SURGICAL SUPERVISOR.HSE MANAGER [address] [place] [address] 12733 Referring Orthopedics 08/08/20 Laundry Technician Relationship Specialty Start Date End Date Ruddy Cooper MD [address] [place] [address] PCP - General 02/16/02 Sid Storm MD, [address] [place] [address] Physician Radiation Oncology 02/21/20 Vlad Velasquez MD [address] [place] [address] Home Care Provider Orthopedics 08/08/20 Rigoberto Chase SURGICAL SUPERVISOR.HSE MANAGER [address] [place] [address] 21871 Referring Orthopedics 08/08/20 Laundry Technician Relationship Specialty Start Date End Date Ruddy Cooper MD [address] [place] [address] PCP - General 02/16/02 Sid Storm MD, [address] [place] [address] Physician Radiation Oncology 02/21/20 Vlad Velasquez MD [address] [place] [address] Home Care Provider Orthopedics 08/08/20 Rigoberto Chase, SURGICAL SUPERVISOR.HSE MANAGER [address] [place] [address] Referring Orthopedics 08/08/20 Laundry Technician Relationship Specialty Start Date End Date Ruddy Cooper MD [address] [place] [address] PCP - General 02/16/02 Sid Storm MD, [address] [place] [address] Physician Radiation Oncology 02/21/20 Vlad Velasquez MD [address] [place] [address] Home Care Provider Orthopedics 08/08/20 Rigoberto Chase, SURGICAL SUPERVISOR.HSE MANAGER [address] [place] [address] 11786 Referring Orthopedics 08/08/20 Laundry Technician Relationship Specialty Start Date End Date Ruddy Cooper MD [address] [place] [address] PCP - General 02/16/02 Sid Storm MD, [address] [place] [address] Physician Radiation Oncology 02/21/20 Vlad Velasquez MD [address] [place] [address] Home Care Provider Orthopedics 08/08/20 Rigoberto Chase APRN.HSE MANAGER [address] [place] [address]51 Referring Orthopedics 08/08/20 Jaimee Bernard, PT [address] [place] [address] Automatic Grinding Machine Operator Post Acute Care 08/08/20 11/25/22 Laundry Technician Relationship Specialty Start Date End Date Ruddy Cooper MD [address] [place], [place] 522071 PCP - General 02/16/02 Sid Storm MD, [address] [place], [place] 283731 Physician Radiation Oncology 02/21/20 Vlad Velasquez MD [address] [place] [address] Home Care Provider Orthopedics 08/08/20 Rigoberto Chase APRN.HSE MANAGER [address] [place] [address] 61889 Referring Orthopedics 08/08/20 Jaimee Bernard, PT [address] [place] [address] Automatic Grinding Machine Operator Post Acute Care 08/08/20 11/25/22 Laundry Technician Relationship Specialty Start Date End Date Ruddy Cooper MD [address] [place], [place] 327[address]91 PCP - General 02/16/02 Sid Storm MD, [address] [place] [address] Physician Radiation Oncology 02/21/20 Vlad Velasquez MD [address] [place] [address] Home Care Provider Orthopedics 08/08/20 Rigoberto Chase, SURGICAL SUPERVISOR.HSE MANAGER [address] [place] [address] 12566 Referring Orthopedics 08/08/20 Laundry Technician Relationship Specialty Start Date End Date Ruddy Cooper MD [address] [place], [place] 702141 PCP - General 02/16/02 Sid Storm MD, [address] [place] [address] Physician Radiation Oncology 02/21/20 Vlad Velasquez MD [address] [place] [address] Home Care Provider Orthopedics 08/08/20 Rigoberto Chase, SURGICAL SUPERVISOR.HSE MANAGER [address] [place] [address] 78624 Referring Orthopedics 08/08/20 Laundry Technician Relationship Specialty Start Date End Date Ruddy Cooper MD [address] [place], [place] 812931 PCP - General 02/16/02 Sid Storm MD, [address] [facility] [place] [address] Physician Radiation Oncology 02/21/20 Vlad Velasquez MD [address] [place] [address] Home Care Provider Orthopedics 08/08/20 Rigoberto Chase APRN.HSE MANAGER [address] [place] [address] 19064 Referring Orthopedics 08/08/20 Laundry Technician Relationship Specialty Start Date End Date Ruddy Cooper MD [address] [place] [address] PCP - General 02/16/02 Sid Storm MD [address] [place] [address] Physician Radiation Oncology 02/21/20 Vlad Velasquez MD [address] [place] [address] Home Care Provider Orthopedics 08/08/20 Rigoberto Chase APRN.HSE MANAGER [address] [place] [address] 35540 Referring Orthopedics 08/08/20 Laundry Technician Relationship Specialty Start Date End Date Ruddy Cooper MD [address] [place] [address] PCP - General 02/16/02 Sid Storm MD [address] [place] [address] Physician Radiation Oncology 02/21/20 Vlad Velasquez MD [address] [place] [address] Home Care Provider Orthopedics 08/08/20 Rigoberto Chase APRN.HSE MANAGER [address] [place] [address] 41738 Referring Orthopedics 08/08/20 Laundry Technician Relationship Specialty Start Date End Date Ruddy Cooper MD [address] [place], [place] 754581 PCP - General 02/16/02 Sid Storm MD [address] [place], [place] 236312 [phone] Physician Radiation Oncology 02/21/20 Vlad Velasquez MD [address] [place] [address] Home Care Provider Orthopedics 08/08/20 Rigoberto Chase APRN.HSE MANAGER [address] [place] [address] 28387 Referring Orthopedics 08/08/20 Laundry Technician Relationship Specialty Start Date End Date Ruddy Cooper MD [address] [place] [address] PCP - General 02/16/02 Sid Storm MD [address] [place] [address] Physician Radiation Oncology 02/21/20 Vlad Velasquez MD [address] [place] [address] Home Care Provider Orthopedics 08/08/20 Rigoberto Chase APRN.HSE MANAGER [address] [place] [address] 62510 Referring Orthopedics 08/08/20 Laundry Technician Relationship Specialty Start Date End Date Ruddy Cooper MD [address] [place] [address] PCP - General 02/16/02 Sid Storm MD [address] [facility] [address] Physician Radiation Oncology 02/21/20 Vlad Velasquez MD [address] [place] [address] Home Care Provider Orthopedics 08/08/20 Rigoberto Chase APRN.HSE MANAGER [address] [place] [address]80 Referring Orthopedics 08/08/20 Laundry Technician Relationship Specialty Start Date End Date Ruddy Cooper MD [address] [place] [address] PCP - General 02/16/02 Sid Storm MD [address] [place] [address] Physician Radiation Oncology 02/21/20 Vlad Velasquez MD [address] [place] [address] Home Care Provider Orthopedics 08/08/20 Rigoberto Chase APRN.HSE MANAGER [address] [place] [address] [phone] Referring Orthopedics 08/08/20 Laundry Technician Relationship Specialty Start Date End Date Ruddy Cooper MD [address] [place] [address] PCP - General 02/16/02 Sid Storm MD [address] [facility] [place] [address] Physician Radiation Oncology 02/21/20 Vlad Velasquez MD [address] [place] [address] Home Care Provider Orthopedics 08/08/20 Rigoberto Chase, SURGICAL SUPERVISOR.HSE MANAGER [address] [place] [address] Referring Orthopedics 08/08/20 Laundry Technician Relationship Specialty Start Date End Date Ruddy Cooper MD [address] [place] [address] PCP - General 02/16/02 Sid Storm MD [address] [facility] [place] [address] Physician Radiation Oncology 02/21/20 Vlad Velasquez MD [address] [place] [address] Home Care Provider Orthopedics 08/08/20 Rigoberto Chase, SURGICAL SUPERVISOR.HSE MANAGER [address] [place] [address]711 Referring Orthopedics 08/08/20 Laundry Technician Relationship Specialty Start Date End Date Ruddy Cooper MD [address] [place] [address] PCP - General 02/16/02 iSd Storm MD [address] [facility] [place] [address] Physician Radiation Oncology 02/21/20 Vlad Velasquez MD [address] [place] [address] Home Care Provider Orthopedics 08/08/20 Rigoberto Chase APRN.HSE MANAGER [address] [place] [address] 20826 Referring Orthopedics 08/08/20 Laundry Technician Relationship Specialty Start Date End Date Ruddy Cooper MD [address] [place] [address] PCP - General 02/16/02 Sid Storm MD [address] [place] [address] Physician Radiation Oncology 02/21/20 Vlad Velasquez MD [address] [place] [address] Home Care Provider Orthopedics 08/08/20 Rigoberto Chase, SURGICAL SUPERVISOR.HSE MANAGER [address] [place] [address] 16612 Referring Orthopedics 08/08/20 Laundry Technician Relationship Specialty Start Date End Date Ruddy Cooper MD [address] [place] [address] PCP - General 02/16/02 Sid Storm MD [address] [place] [address] Physician Radiation Oncology 02/21/20 Vlad Velasquez MD [address] [place] [address] Home Care Provider Orthopedics 08/08/20 Rigoberto Chase APRN.HSE MANAGER [address] [place] [address] 66228 Referring Orthopedics 08/08/20 Laundry Technician Relationship Specialty Start Date End Date Ruddy Cooper MD [address] [place] [address] PCP - General 02/16/02 Sid Storm MD [address] [place] [address] Physician Radiation Oncology 02/21/20 Vlad Velasquez MD [address] [place] [address] Home Care Provider Orthopedics 08/08/20 Rigoberto Chase APRN.HSE MANAGER [address] [place] [address] 86442 Referring Orthopedics 08/08/20 Laundry Technician Relationship Specialty Start Date End Date Ruddy Cooper MD [facility] [place] [address] PCP - General 02/16/02 Sid Storm MD [address] [place] [address] Physician Radiation Oncology 02/21/20 Vlad Velasquez MD [address] [place] [address] Home Care Provider Orthopedics 08/08/20 Rigoberto Chase APRN.HSE MANAGER [address] [place] [address] [phone] Referring Orthopedics 08/08/20 Laundry Technician Relationship Specialty Start Date End Date Ruddy Cooper MD [address] [place] [address] PCP - General 02/16/02 Sid Storm MD [address] [place] [address] Physician Radiation Oncology 02/21/20 Vlad Velasquez MD [address] [place] [address] Home Care Provider Orthopedics 08/08/20 Rigoberto Chase, SURGICAL SUPERVISOR.HSE MANAGER [address] [place] [address] [phone] Referring Orthopedics 08/08/20 Laundry Technician Relationship Specialty Start Date End Date Ruddy Cooper MD [address] [place] [address] PCP - General 02/16/02 iSd Storm MD [address] [place] [address] Physician Radiation Oncology 02/21/20 Vlad Velasquez MD [address] [place] [address] Home Care Provider Orthopedics 08/08/20 Rigoberto Chase, SURGICAL SUPERVISOR.HSE MANAGER [address] [place] [address] 01170 Referring Orthopedics 08/08/20 Laundry Technician Relationship Specialty Start Date End Date Ruddy Cooper MD [address] [place] [address] PCP - General 02/16/02 Sid Storm MD [address] [place] [address] Physician Radiation Oncology 02/21/20 Vlad Velasquez MD [address] [place] [address] Home Care Provider Orthopedics 08/08/20 Rigoberto Chase APRN.HSE MANAGER [address] [place] [address] [phone] Referring Orthopedics 08/08/20 Laundry Technician Relationship Specialty Start Date End Date Ruddy Cooper MD [address] [place] [address] PCP - General 02/16/02 Sid Storm MD [address] [place] [address] Physician Radiation Oncology 02/21/20 Vlad Velasquez MD [address] [place] [address] Home Care Provider Orthopedics 08/08/20 Rigoberto Chase, SURGICAL SUPERVISOR.HSE MANAGER [address] [place] [address] 16179 Referring Orthopedics 08/08/20 Laundry Technician Relationship Specialty Start Date End Date Ruddy Cooper MD [address] [place] [address] PCP - General 02/16/02 Sid Storm MD [address] [place] [address] Physician Radiation Oncology 02/21/20 Vlad Velasquez MD [address] [place] [address] Home Care Provider Orthopedics 08/08/20 Rigoberto Chase APRN.HSE MANAGER [address] [place] [address] [phone] Referring Orthopedics 08/08/20 Laundry Technician Relationship Specialty Start Date End Date Ruddy Cooper MD [address] [place] [address] PCP - General 02/16/02 Sid Storm MD [address] [place] [address] Physician Radiation Oncology 02/21/20 Vlad Velasquez MD [address] [place] [address] Home Care Provider Orthopedics 08/08/20 Rigoberto Chase, SURGICAL SUPERVISOR.HSE MANAGER [address] [place] [address] 98829 Referring Orthopedics 08/08/20 Laundry Technician Relationship Specialty Start Date End Date Ruddy Cooper MD [address] [place] [address] PCP - General 02/16/02 Sid Storm MD [address] [place] [address] Physician Radiation Oncology 02/21/20 Vlad Velasquez MD [address] [facility] [place] [address] Home Care Provider Orthopedics 08/08/20 Rigoberto Chase, SURGICAL SUPERVISOR.HSE MANAGER [address] [place] [address] [phone] Referring Orthopedics 08/08/20 Laundry Technician Relationship Specialty Start Date End Date Ruddy Cooper MD [address] [place] [address] PCP - General 02/16/02 Sid Storm MD [address] [place] [address] Physician Radiation Oncology 02/21/20 Vlad Velasquez MD [address] [place] [address] Home Care Provider Orthopedics 08/08/20 Rigoberto Chase SURGICAL SUPERVISOR.HSE MANAGER [address] [place] [address] 07868 Referring Orthopedics 08/08/20 Laundry Technician Relationship Specialty Start Date End Date Ruddy Cooper MD [address] [place] [address] PCP - General 02/16/02 Sid Storm MD [address] [place] [address] Physician Radiation Oncology 02/21/20 Vlad Velasquez MD [address] [place] [address] Home Care Provider Orthopedics 08/08/20 Rigoberto Chase SURGICAL SUPERVISOR.HSE MANAGER [address] [place] [address] 39663 Referring Orthopedics 08/08/20 Laundry Technician Relationship Specialty Start Date End Date Ruddy Cooper MD [address] [place], [place] 856141 PCP - General 02/16/02 Sid Storm MD [address] [place] [address] Physician Radiation Oncology 02/21/20 Vlad Velasquez MD [address] [place] [address] Home Care Provider Orthopedics 08/08/20 Rigoberto Chase, SURGICAL SUPERVISOR.HSE MANAGER [address] [place] [address] 06818 Referring Orthopedics 08/08/20 Laundry Technician Relationship Specialty Start Date End Date Ruddy Cooper MD [address] [place] [address] PCP - General 02/16/02 Sid Storm MD [address] [place] [address] Physician Radiation Oncology 02/21/20 Vlad Velasquez MD [address] [place] [address] Home Care Provider Orthopedics 08/08/20 Rigoberto Chase, SURGICAL SUPERVISOR.HSE MANAGER [address] [place] [address] 98561 Referring Orthopedics 08/08/20 Laundry Technician Relationship Specialty Start Date End Date Ruddy Cooper MD [address] [place] [address] PCP - General 02/16/02 Sid Storm MD [address] [place] [address] Physician Radiation Oncology 02/21/20 Vlad Velasquez MD [address] [place] [address] Home Care Provider Orthopedics 08/08/20 Rigoberto Chase APRN.HSE MANAGER [address] [place] [address] 82369 Referring Orthopedics 08/08/20 Laundry Technician Relationship Specialty Start Date End Date Ruddy Cooper MD [address] [place] [place] [address] PCP - General 02/16/02 Sid Storm MD [address] [place] [address] Physician Radiation Oncology 02/21/20 Vlad Velasquez MD [address] [place] [address] Home Care Provider Orthopedics 08/08/20 Rigoberto Chase APRN.HSE MANAGER [address] [place] [address] 07745 Referring Orthopedics 08/08/20 Laundry Technician Relationship Specialty Start Date End Date Ruddy Cooper MD [address] [place] [place] [address] PCP - General 02/16/02 Sid Storm MD [address] [place] [address] Physician Radiation Oncology 02/21/20 Vlad Velasquez MD [address] [place] [address] Home Care Provider Orthopedics 08/08/20 Rigoberto Chase APRN.HSE MANAGER [address] [place] [address] 11556 Referring Orthopedics 08/08/20 Laundry Technician Relationship Specialty Start Date End Date Ruddy Cooper MD [address] [place], [place] 330091 PCP - General 02/16/02 Sid Storm MD [address] [place], [place] 990368 [phone] Physician Radiation Oncology 02/21/20 Vlad Velasquez MD [address] [place] [address] Home Care Provider Orthopedics 08/08/20 Rigoberto Chase APRN.HSE MANAGER [address] [place] [address] 05266 Referring Orthopedics 08/08/20 Laundry Technician Relationship Specialty Start Date End Date Ruddy Cooper MD [address] [place] [address] PCP - General 02/16/02 Sid Storm MD [address] [place] [address] Physician Radiation Oncology 02/21/20 Vlad Velasquez MD [address] [place] [address] Home Care Provider Orthopedics 08/08/20 Rigoberto Chase APRN.HSE MANAGER [address] [place] [address] 54441 Referring Orthopedics 08/08/20 Laundry Technician Relationship Specialty Start Date End Date Ruddy Cooper MD [address] [place] [address] PCP - General 02/16/02 Sid Storm MD [address] [facility] [address] Physician Radiation Oncology 02/21/20 Vlad Velasquez MD [address] [place] [address] Home Care Provider Orthopedics 08/08/20 Rigoberto Chase APRN.HSE MANAGER [address] [place] [address] 66742 Referring Orthopedics 08/08/20 Laundry Technician Relationship Specialty Start Date End Date Ruddy Cooper MD [address] [place] [address] PCP - General 02/16/02 Sid Storm MD [address] [place] [address] Physician Radiation Oncology 02/21/20 Vlad Velasquez MD [address] [place] [address] Home Care Provider Orthopedics 08/08/20 Rigoberto Chase APRN.HSE MANAGER [address] [place] [address] [phone] Referring Orthopedics 08/08/20 Laundry Technician Relationship Specialty Start Date End Date Ruddy Cooper MD [address] [place] [address] PCP - General 02/16/02 Sid Storm MD [address] [facility] [place] [address] Physician Radiation Oncology 02/21/20 Vlad Velasquez MD [address] [place] [address] Home Care Provider Orthopedics 08/08/20 Rigoberto Chase, SURGICAL SUPERVISOR.HSE MANAGER [address] [place] [address] 12365 Referring Orthopedics 08/08/20 Laundry Technician Relationship Specialty Start Date End Date Ruddy Cooper MD [address] [place] [address] PCP - General 02/16/02 Sid Storm MD [address] [facility] [place] [address] Physician Radiation Oncology 02/21/20 Vlad Velasquez MD [address] [place] [address] Home Care Provider Orthopedics 08/08/20 Rigoberto Chase, SURGICAL SUPERVISOR.HSE MANAGER [address] [place] [address] 98651 Referring Orthopedics 08/08/20 Laundry Technician Relationship Specialty Start Date End Date Ruddy Cooper MD [address] [place] [address] PCP - General 02/16/02 Sid Storm MD [address] [facility] [place] [address] Physician Radiation Oncology 02/21/20 Vlad Velasquez MD [address] [place] [address] Home Care Provider Orthopedics 08/08/20 Rigoberto Chase APRN.HSE MANAGER [address] [place] [address] 84141 Referring Orthopedics 08/08/20 Laundry Technician Relationship Specialty Start Date End Date Ruddy Cooper MD [address] [place], [place] 786291 PCP - General 02/16/02 Sid Storm MD [address] [place] [address] Physician Radiation Oncology 02/21/20 Vlad Velasquez MD [address] [place] [address] Home Care Provider Orthopedics 08/08/20 Rigoberto Chase APRN.HSE MANAGER [address] [place] [address] 65304 Referring Orthopedics 08/08/20 Jaimee Bernard, PT [address] [place], [place] [phone] Automatic Grinding Machine Operator Post Acute Care 08/08/20 11/25/22 Laundry Technician Relationship Specialty Start Date End Date Ruddy Cooper MD [address] [place], [place] 801961 PCP - General 02/16/02 Sid Storm MD [address] [place], [place] 832262 [phone] Physician Radiation Oncology 02/21/20 Vlad Velasquez MD [address] [place] [address] Home Care Provider Orthopedics 08/08/20 Rigoberto Chase APRN.HSE MANAGER [address] [place] [address] 43255 Referring Orthopedics 08/08/20 Jaimee Bernard, PT [address] [place] [address] Automatic Grinding Machine Operator Post Acute Care 08/08/20 11/25/22 Laundry Technician Relationship Specialty Start Date End Date Ruddy Cooper MD [address] [place], [place] 252891 PCP - General 02/16/02 Sid Storm MD [address] [place] [address] Physician Radiation Oncology 02/21/20 Laundry Technician Relationship Specialty Start Date End Date Ruddy Cooper MD [address] [place] [address] PCP - General 02/16/02 Sid Storm MD [address] [place] [address] Physician Radiation Oncology 02/21/20 Vlad Velasquez MD [address] [place] [address] Home Care Provider Orthopedics 08/08/20 Rigoberto Chase APRN.HSE MANAGER [address] [place] [address] 34748 Referring Orthopedics 08/08/20 Laundry Technician Relationship Specialty Start Date End Date Ruddy Cooper MD [address] [place] [address] PCP - General 02/16/02 Sid Storm MD [address] [place] [address] Physician Radiation Oncology 02/21/20 Vlad Velasquez MD [address] [place] [address] Home Care Provider Orthopedics 08/08/20 Rigoberto Chase SURGICAL SUPERVISOR.HSE MANAGER [address] [place] [address] 91654 Referring Orthopedics 08/08/20 Laundry Technician Relationship Specialty Start Date End Date Ruddy Cooper MD [address] [place] [address] PCP - General 02/16/02 Sid Storm MD [address] [place] [address] Physician Radiation Oncology 02/21/20 Vlad Velasquez MD [address] [place] [address] Home Care Provider Orthopedics 08/08/20 Rigoberto Chase, SURGICAL SUPERVISOR.HSE MANAGER [address] [place] [address] 41319 Referring Orthopedics 08/08/20 Laundry Technician Relationship Specialty Start Date End Date Ruddy Cooper MD [address] [place] [address] PCP - General 02/16/02 Sid Storm MD [address] [place] [address] Physician Radiation Oncology 02/21/20 Vlad Velasquez MD [address] [place] [address] Home Care Provider Orthopedics 08/08/20 Rigoberto Chase SURGICAL SUPERVISOR.HSE MANAGER [address] [place] [address] [phone] Referring Orthopedics 08/08/20 Laundry Technician Relationship Specialty Start Date End Date Ruddy Cooper MD [facility] [place] [address] PCP - General 02/16/02 Sid Storm MD [address] [place] [address] Physician Radiation Oncology 02/21/20 Vlad Velasquez MD [address] [place] [address] Home Care Provider Orthopedics 08/08/20 Rigoberto Chase SURGICAL SUPERVISOR.HSE MANAGER [address] [place] [address] 24763 Referring Orthopedics 08/08/20 Bradford John SURGICAL SUPERVISOR.CLEANING VALIDATION CONSULTANT [facility] [place] [address] Sales Expert Internal Medicine 04/05/24 Elma Fuchs SURGICAL SUPERVISOR.HSE MANAGER [facility] [place] [address] Sales Expert Internal Medicine 04/05/24 Laundry Technician Relationship Specialty Start Date End Date Ruddy Cooper MD [address] [place] [address] PCP - General 02/16/02 Sid Storm MD [address] [place] [address] Physician Radiation Oncology 02/21/20 Vlad Velasquez MD [address] [place] [address] Home Care Provider Orthopedics 08/08/20 Rigoberto Chase, SURGICAL SUPERVISOR.HSE MANAGER [address] [place] [address] [phone] Referring Orthopedics 08/08/20 Bradford John SURGICAL SUPERVISOR.CLEANING VALIDATION CONSULTANT [address] [place] [address] [phone] Sales Expert Internal Medicine 04/05/24 Elma Fuchs SURGICAL SUPERVISOR.HSE MANAGER [address] [place] [address] [phone] Sales Expert Internal Medicine 04/05/24 Laundry Technician Relationship Specialty Start Date End Date Ruddy Cooper MD [address] [place] [address] 95568 PCP - General 02/16/02 Sid Storm MD [address] [place] [address] Physician Radiation Oncology 02/21/20 Vlad Velasquez MD [address] [place] [address] Home Care Provider Orthopedics 08/08/20 Rigoberto Chase, SURGICAL SUPERVISOR.HSE MANAGER [address] [place] [address] [phone] Referring Orthopedics 08/08/20 Bradford John SURGICAL SUPERVISOR.CLEANING VALIDATION CONSULTANT [address] [place] [address] Sales Expert Internal Medicine 04/05/24 Elma Fuchs SURGICAL SUPERVISOR.HSE MANAGER [address] [place] [address] [phone] Sales Expert Internal Medicine 04/05/24 Laundry Technician Relationship Specialty Start Date End Date Ruddy Cooper MD [address] [place] [address] PCP - General 02/16/02 Sid Storm MD [address] [place] [address] Physician Radiation Oncology 02/21/20 Vlad Velasquez MD [address] [place] [address] Home Care Provider Orthopedics 08/08/20 Rigoberto Chase SURGICAL SUPERVISOR.HSE MANAGER [address] [place] [address] 14457 Referring Orthopedics 08/08/20 Bradford John SURGICAL SUPERVISOR.CLEANING VALIDATION CONSULTANT [address] [place] [address] Sales Expert Internal Medicine 04/05/24 Elma Fuhcs SURGICAL SUPERVISOR.HSE MANAGER [address] [place] [address] Sales Expert Internal Medicine 04/05/24 Laundry Technician Relationship Specialty Start Date End Date Ruddy Cooper MD [address] [place] [address] PCP - General 02/16/02 Sid Storm MD [address] [address] Physician Radiation Oncology 02/21/20 Vlad Velasquez MD [address] [place] [address] Home Care Provider Orthopedics 08/08/20 Rigoberto Chase SURGICAL SUPERVISOR.HSE MANAGER [address] [place] [address] [phone] Referring Orthopedics 08/08/20 Bradford John SURGICAL SUPERVISOR.CLEANING VALIDATION CONSULTANT [address] [place] [address] Sales Expert Internal Medicine 04/05/24 Elma Fuchs SURGICAL SUPERVISOR.HSE MANAGER [address] [place] [address] Sales Expert Internal Medicine 04/05/24 Laundry Technician Relationship Specialty Start Date End Date Ruddy Cooper MD [address] [place] [address] PCP - General 02/16/02 Sid Storm MD [address] [place] [address] Physician Radiation Oncology 02/21/20 Vlad Velasquez MD [address] [place] [address] Home Care Provider Orthopedics 08/08/20 Rigoberto Chase SURGICAL SUPERVISOR.HSE MANAGER [address] [place] [address] 97374 Referring Orthopedics 08/08/20 Bradford John SURGICAL SUPERVISOR.CLEANING VALIDATION CONSULTANT [address] [place] [address] Sales Expert Internal Medicine 04/05/24 Elma Fuchs SURGICAL SUPERVISOR.HSE MANAGER [address] [place] [address] Sales Expert Internal Medicine 04/05/24 Laundry Technician Relationship Specialty Start Date End Date Ruddy Cooper MD [address] [place] [address] PCP - General 02/16/02 Sid Storm MD [address] [place] [address] Physician Radiation Oncology 02/21/20 Vlad Velasquez MD [address] [place] [address] Home Care Provider Orthopedics 08/08/20 Rigoberto Chase SURGICAL SUPERVISOR.HSE MANAGER [address] [facility], [address] [place] [address] [phone] Referring Orthopedics 08/08/20 Bradford John SURGICAL SUPERVISOR.CLEANING VALIDATION CONSULTANT [address] [place] [address] Sales Expert Internal Medicine 04/05/24 Elma Fuchs SURGICAL SUPERVISOR.HSE MANAGER [address] [place] [address] Sales Expert Internal Medicine 07/20/24 Laundry Technician Relationship Specialty Start Date End Date Ruddy Cooper MD [address] [facility] [place] [address] PCP - General 02/16/02 Sid Storm MD [address] [place] [address] Physician Radiation Oncology 02/21/20 Vlad Velasquez MD [address] [place] [address] Home Care Provider Orthopedics 08/08/20 Rigoberto Chase, SURGICAL SUPERVISOR.HSE MANAGER [address] [place] [address] 08852 Referring Orthopedics 08/08/20 Bradford John SURGICAL SUPERVISOR.CLEANING VALIDATION CONSULTANT [address] [place] [address] Sales Expert Internal Medicine 04/05/24 Elma Fuchs SURGICAL SUPERVISOR.HSE MANAGER [address] [place] [address] Sales Expert Internal Medicine 07/20/24 Laundry Technician Relationship Specialty Start Date End Date Ruddy Cooper MD [address] [place] [address] PCP - General 02/16/02 Sid Storm MD [address] [address] Physician Radiation Oncology 02/21/20 Vlad Velasquez MD [address] [place] [address] Home Care Provider Orthopedics 08/08/20 Rigoberto Chase SURGICAL SUPERVISOR.HSE MANAGER [address] [place] [address] 56922 Referring Orthopedics 08/08/20 Bradford John SURGICAL SUPERVISOR.CLEANING VALIDATION CONSULTANT [address] [place] [address] Sales Expert Internal Medicine 04/05/24 Elma Fuchs SURGICAL SUPERVISOR.HSE MANAGER [address] [facility] [place] [address] Sales Expert Internal Medicine 07/20/24 Laundry Technician Relationship Specialty Start Date End Date Ruddy Cooper MD [address] [place] [address] PCP - General 02/16/02 Sid Storm MD [address] [place] [address] Physician Radiation Oncology 02/21/20 Vlad Velasquez MD [address] [place] [address] Home Care Provider Orthopedics 08/08/20 Rigoberto Chase SURGICAL SUPERVISOR.HSE MANAGER [address] [phone] Referring Orthopedics 08/08/20 Bradford John SURGICAL SUPERVISOR.CLEANING VALIDATION CONSULTANT [address] [place] [address] Sales Expert Internal Medicine 04/05/24 Elma Fuchs SURGICAL SUPERVISOR.HSE MANAGER [address] [place] [address] Sales Expert Internal Medicine 07/20/24 Laundry Technician Relationship Specialty Start Date End Date Ruddy Cooper MD [address] [place] [address] PCP - General 02/16/02 Sid Storm MD [address] [facility] [place] [address] Physician Radiation Oncology 02/21/20 Vlad Velasquez MD [address] [place] [address] Home Care Provider Orthopedics 08/08/20 Rigoberto Chase, SURGICAL SUPERVISOR.HSE MANAGER [address] [place] [address] [phone] Referring Orthopedics 08/08/20 Bradford John SURGICAL SUPERVISOR.CLEANING VALIDATION CONSULTANT [address] [place] [address] Sales Expert Internal Medicine 04/05/24 Elma Fuchs SURGICAL SUPERVISOR.HSE MANAGER [address] [place] [address] Sales Expert Internal Medicine 07/20/24 Laundry Technician Relationship Specialty Start Date End Date Ruddy Cooper MD [address] [place] [address] PCP - General 02/16/02 Sid Storm MD [address] [address] Physician Radiation Oncology 02/21/20 Vlad Velasquez MD [address] [place] [address] Home Care Provider Orthopedics 08/08/20 Rigoberto Chase, SURGICAL SUPERVISOR.HSE MANAGER [address] [place] [address], [place] [address] Referring Orthopedics 08/08/20 Bradford John SURGICAL SUPERVISOR.CLEANING VALIDATION CONSULTANT [address] [place] [address] Sales Expert Internal Medicine 04/05/24 Elma Fuchs SURGICAL SUPERVISOR.HSE MANAGER [address] [place] [address] Sales Expert Internal Medicine 07/20/24 Laundry Technician Relationship Specialty Start Date End Date Ruddy Cooper MD [address] [place] [address] PCP - General 02/16/02 Sid Storm MD [address] [place] [address] Physician Radiation Oncology 02/21/20 Vlad Velasquez MD [address] [place] [address] Home Care Provider Orthopedics 08/08/20 Rigoberto Chase SURGICAL SUPERVISOR.HSE MANAGER [address] [place] [address] 00292 Referring Orthopedics 08/08/20 Bradford John, SURGICAL SUPERVISOR.CLEANING VALIDATION CONSULTANT [address] [place] [address] Sales Expert Internal Medicine 04/05/24 Elma Fuchs SURGICAL SUPERVISOR.HSE MANAGER [address] [place] [address] Sales Expert Internal Medicine 07/20/24 Laundry Technician Relationship Specialty Start Date End Date Ruddy Cooper MD [address] [place] [address] PCP - General 02/16/02 Sid Storm MD [address] [address] Physician Radiation Oncology 02/21/20 Vlad Velasquez MD [address] [place] [address] Home Care Provider Orthopedics 08/08/20 Rigoberto Chase APRN.HSE MANAGER [address] [place] [address] 51947 Referring Orthopedics 08/08/20 Bradford John APRN.CLEANING VALIDATION CONSULTANT [address] [place] [address] Sales Expert Internal Medicine 04/05/24 Elma Fuchs SURGICAL SUPERVISOR.HSE MANAGER [address] [place] [address] Sales Expert Internal Medicine 07/20/24 Laundry Technician Relationship Specialty Start Date End Date Ruddy Cooper MD [address] [place] [address] PCP - General 02/16/02 Sid Storm MD [address] [place] [address] Physician Radiation Oncology 02/21/20 Vlad Velasquez MD [address] [place] [address] Home Care Provider Orthopedics 08/08/20 Rigoberto Chase SURGICAL SUPERVISOR.HSE MANAGER [address] [place] [address] [phone] Referring Orthopedics 08/08/20 Bradford John SURGICAL SUPERVISOR.CLEANING VALIDATION CONSULTANT [address] [place] [address] Sales Expert Internal Medicine 04/05/24 Elma Fuchs SURGICAL SUPERVISOR.HSE MANAGER [address] [place] [address] Sales Expert Internal Medicine 07/20/24 Laundry Technician Relationship Specialty Start Date End Date Ruddy Cooper MD [address] [place] [address] PCP - General 02/16/02 Sid Storm MD [address] [place] [address] Physician Radiation Oncology 02/21/20 Vlad Velasquez MD [address] [facility] [address] Home Care Provider Orthopedics 08/08/20 Rigoberto Chase SURGICAL SUPERVISOR.HSE MANAGER [address] [place] [address] 94062 Referring Orthopedics 08/08/20 Bradford John SURGICAL SUPERVISOR.CLEANING VALIDATION CONSULTANT [address] [place] [address] Sales Expert Internal Medicine 04/05/24 Elma Fuchs SURGICAL SUPERVISOR.HSE MANAGER [address] [place] [address] Sales Expert Internal Medicine 07/20/24 Laundry Technician Relationship Specialty Start Date End Date Ruddy Cooper MD [address] [place] [address] PCP - General 02/16/02 Sid Storm MD [address] [place] [address] Physician Radiation Oncology 02/21/20 Vlad Velasquez MD [address] [place] [address] Home Care Provider Orthopedics 08/08/20 Rigoberto Chase APRN.HSE MANAGER [address] [place] [address] [phone] Referring Orthopedics 08/08/20 Bradford John SURGICAL SUPERVISOR.CLEANING VALIDATION CONSULTANT [address] [place] [address] Sales Expert Internal Medicine 04/05/24 Elma Fuchs SURGICAL SUPERVISOR.HSE MANAGER [address] [place] [address] Sales Expert Internal Medicine 04/05/24 07/16/24 Elma Fuchs SURGICAL SUPERVISOR.HSE MANAGER [address] [place] [address] Sales Expert Internal Medicine 07/20/24 Laundry Technician Relationship Specialty Start Date End Date Ruddy Cooper MD [address] [place] [address] PCP - General 02/16/02 Sid Storm MD [address] [place] [address] Physician Radiation Oncology 02/21/20 Vlad Velasquez MD [address] [facility] [place] [address] Home Care Provider Orthopedics 08/08/20 Rigoberto Chase APRN.HSE MANAGER [address] [place] [address] 83884 Referring Orthopedics 08/08/20 Bradford John APRN.CLEANING VALIDATION CONSULTANT [address] [place], [place] 465531 Sales Expert Internal Medicine 04/05/24 Elma Fuchs APRN.HSE MANAGER [address] [place], [place] 745151 Sales Expert Internal Medicine 07/20/24 Lamar De Leon, LAURITA [address] [place], [place] [id number] Primary Care Ink Maker Internal Medicine 09/01/24 Laundry Technician Relationship Specialty Start Date End Date Ruddy Cooper MD [address] [place] [address] PCP - General 02/16/02 Sid Storm MD [address] [place], [place] [id number] Physician Radiation Oncology 02/21/20 Vlad Velasquez MD [address] [place] [address] Home Care Provider Orthopedics 08/08/20 Rigoberto Chase APRN.HSE MANAGER [address] [place] [address] Referring Orthopedics 08/08/20 Bradford John APRN.CLEANING VALIDATION CONSULTANT [address] [place] [address] Sales Expert Internal Medicine 04/05/24 Elma Fuchs APRN.HSE MANAGER [address] [place] [address] Sales Expert Internal Medicine 07/20/24 Lamar De Leon RN [address] [place], [place] [id number] Primary Care Ink Maker Internal Medicine 09/01/24 Laundry Technician Relationship Specialty Start Date End Date Ruddy Cooper MD [address] [place] [address] PCP - General 02/16/02 Sid Storm MD [address] [place], [place] 943541 Physician Radiation Oncology 02/21/20 Vlad Velasquez MD [address] [place] [address] Home Care Provider Orthopedics 08/08/20 Rigoberto Chase, SURGICAL SUPERVISOR.HSE MANAGER [address] [place] [address], [address] [place] [address] [phone] Referring Orthopedics 08/08/20 Bradford John SURGICAL SUPERVISOR.CLEANING VALIDATION CONSULTANT [address] [place], [place] 743821 Sales Expert Internal Medicine 04/05/24 Elma Fuchs SURGICAL SUPERVISOR.HSE MANAGER [address] [place] [address] Sales Expert Internal Medicine 07/20/24 Lamar De Leon RN [address] [place] [address] Primary Care Ink Maker Internal Medicine 09/01/24 Laundry Technician Relationship Specialty Start Date End Date Ruddy Cooper MD [address] [place], [place] 030281 PCP - General 02/16/02 Sid Storm MD [address] [place], [place] 782071 Physician Radiation Oncology 02/21/20 lVad Velasquez MD [address] [place] [address] Home Care Provider Orthopedics 08/08/20 Rigoberto Chase SURGICAL SUPERVISOR.HSE MANAGER [address] [address] Referring Orthopedics 08/08/20 Bradford John SURGICAL SUPERVISOR.CLEANING VALIDATION CONSULTANT [address] [place] [address] Sales Expert Internal Medicine 04/05/24 Elma Fuchs SURGICAL SUPERVISOR.HSE MANAGER [address] [place] [address] Sales Expert Internal Medicine 07/20/24 Lamar De Leon, LAURITA [address] [place] [address] Primary Care Ink Maker Internal Medicine 09/01/24 Laundry Technician Relationship Specialty Start Date End Date Ruddy Cooper MD [address] [place], [place] 067011 PCP - General 02/16/02 Sid Storm MD [address] [facility] [place] [place] [address] Physician Radiation Oncology 02/21/20 Vlad Velasquez MD [address] [place] [address] Home Care Provider Orthopedics 08/08/20 Rigoberto Chase APRN.HSE MANAGER [address] [address] Referring Orthopedics 08/08/20 Bradford John APRN.CLEANING VALIDATION CONSULTANT [address] [place], [place] 598181 Sales Expert Internal Medicine 04/05/24 Elma Fuchs APRN.HSE MANAGER [address] [place], [place] 650491 Sales Expert Internal Medicine 07/20/24 Lamar De Leon, LAURITA [address] [place], [place] [id number] Primary Care Ink Maker Internal Medicine 09/01/24 Team Status: Active Member [...] Start: August 26, 2024 Dr. Veto Lynne , DO Other Provider Active Start: August 26, [...] Start: August 28, 2024 Dr. Veto Lynne DO Other Provider Active Start: August 28, [...] September 08, 2024 End: September 09, 2024 Laundry Technician Relationship Specialty Start Date End Date Ruddy Cooper MD [address] [place], [place] 575821 PCP - General 02/16/02 Sid Storm MD [address] [place], [place] [id number] Physician Radiation Oncology 02/21/20 Vlad Velasquez MD [address] [place] [address] Home Care Provider Orthopedics 08/08/20 Rigoberto Chase SURGICAL SUPERVISOR.HSE MANAGER [address] [address] Referring Orthopedics 08/08/20 Elma Fuchs SURGICAL SUPERVISOR.HSE MANAGER [address] [place], [place] 239121 Sales Expert Internal Medicine 07/20/24 Lamar De Leon, LAURITA [address] [place] [address] Primary Care Ink Maker Internal Medicine 09/01/24 Bradford John, SURGICAL SUPERVISOR.CLEANING VALIDATION CONSULTANT [address] [place], [place] [id number] Sales Expert Internal Medicine 09/15/24 Laundry Technician Relationship Specialty Start Date End Date Ruddy Cooper MD [address] [place] [address] PCP - General 02/16/02 Sid Storm MD [address] [place], [place] 648131 Physician Radiation Oncology 02/21/20 Vlad Velasquez MD [address] [place] [address] Home Care Provider Orthopedics 08/08/20 Rigoberto Chase SURGICAL SUPERVISOR.HSE MANAGER [address] [facility], [address] [place] [address] Referring Orthopedics 08/08/20 Elma Fuchs SURGICAL SUPERVISOR.HSE MANAGER [address] [place] [address] Sales Expert Internal Medicine 07/20/24 Bradford John, SURGICAL SUPERVISOR.CLEANING VALIDATION CONSULTANT [address] [place], [place] 479961 Sales Expert Internal Medicine 09/15/24 Team Status: Inactive Member [...] Attending Provider Active Start: October 10, 2024 Laundry Technician Relationship Specialty Start Date End Date Ruddy Cooper MD [address] [place] [address] PCP - General 02/16/02 Sid Storm MD [address] [place], [place] 256401 Physician Radiation Oncology 02/21/20 Vlad Velasquez MD [address] [place] [address] Home Care Provider Orthopedics 08/08/20 Rigoberto Chase SURGICAL SUPERVISOR.HSE MANAGER [address] [phone] Referring Orthopedics 08/08/20 Bradford John, SURGICAL SUPERVISOR.CLEANING VALIDATION CONSULTANT [address] [place] [address] Sales Expert Internal Medicine 04/05/24 09/14/24 Elma Fuchs, SURGICAL SUPERVISOR.HSE MANAGER [address] [place], [place] 259691 Sales Expert Internal Medicine 07/20/24 Lamar De Leon, LAURITA [address] [place] [address] Primary Care Ink Maker Internal Medicine 09/01/24 09/29/24 Bradford John, SURGICAL SUPERVISOR.CLEANING VALIDATION CONSULTANT [address] [place], [place] 712021 Sales Expert Internal Medicine 09/15/24 Team Status: Inactive Member Role Status Dates Dr. Ruddy Cooper MD Primary Care Provider Active Start: October 10, 2024 End: October 12, 2024 Dr. Jose Dodd DO [...] Other Provider Active Start: October 12, 2024 Laundry Technician Relationship Specialty Start Date End Date Ruddy Cooper MD [address] [place] [address] PCP - General 02/16/02 Sid Sotrm MD [address] [place] [address] Physician Radiation Oncology 02/21/20 Vlad Velasquez MD [address] [place] [address] Home Care Provider Orthopedics 08/08/20 Rigoberto Chase SURGICAL SUPERVISOR.HSE MANAGER [address] [place] [address] Referring Orthopedics 08/08/20 Elma Fuchs SURGICAL SUPERVISOR.HSE MANAGER [address] [place] [address] Sales Expert Internal Medicine 07/20/24 Bradford John APRN.CLEANING VALIDATION CONSULTANT [address] [place] [address] Sales Expert Internal Medicine 09/15/24 Mireya Thomas, emission technician [employer] 10/13/24 Laundry Technician Relationship Specialty Start Date End Date Ruddy Cooper MD [address] [place] [address] PCP - General 02/16/02 Sid Storm MD [address] [place] [address] Physician Radiation Oncology 02/21/20 Vlad Velasquez MD [address] [place] [address] Home Care Provider Orthopedics 08/08/20 Rigoberto Chase SURGICAL SUPERVISOR.HSE MANAGER [address] [place] [address] Referring Orthopedics 08/08/20 Elma Fuchs APRN.HSE MANAGER [address] [place] [address] Sales Expert Internal Medicine 07/20/24 Bradford John APRN.CLEANING VALIDATION CONSULTANT [address] [place] [address] Sales Expert Internal Medicine 09/15/24 Mireya Thomas, emission technician [employer] 10/13/24 Dea Dietz LSW [place] Waste Machine Operator 10/14/24 Laundry Technician Relationship Specialty Start Date End Date Ruddy Cooper MD [address] [place] [address] PCP - General 02/16/02 Sid Storm MD [address] [place], [place] 968321 Physician Radiation Oncology 02/21/20 Vlad Velasquez MD [address] [place] [address] Home Care Provider Orthopedics 08/08/20 Rigoberto Chsae APRN.HSE MANAGER [address] [place] [address] Referring Orthopedics 08/08/20 Elma Fuchs APRN.HSE MANAGER [address] [place], [place] 681671 Sales Expert Internal Medicine 07/20/24 Bradford John, SURGICAL SUPERVISOR.CLEANING VALIDATION CONSULTANT [address] [place], [place] 345871 Sales Expert Internal Medicine 09/15/24 Mireya Thomas RN Primary Care [employer] 10/13/24 Dea Dietz LSW [employer] Waste Machine Operator 10/14/24 Laundry Technician Relationship Specialty Start Date End Date Ruddy Cooper MD [address] [place], [place] 188621 PCP - General 02/16/02 Sid Storm MD [address] [place], [place] 732391 Physician Radiation Oncology 02/21/20 Vlad Velasquez MD [address] [facility] [address] Home Care Provider Orthopedics 08/08/20 Rigoberto Chase SURGICAL SUPERVISOR.HSE MANAGER [address] [place] [address] Referring Orthopedics 08/08/20 Elma Fuchs SURGICAL SUPERVISOR.HSE MANAGER [address] [place], [place] 960881 Sales Expert Internal Medicine 07/20/24 Bradford John, SURGICAL SUPERVISOR.CLEANING VALIDATION CONSULTANT [address] [place] [address] Sales Expert Internal Medicine 09/15/24 Mireya Thomas RN Primary Care [employer] 10/13/24 Dea Dietz LSW [employer] Waste Machine Operator 10/14/24 Laundry Technician Relationship Specialty Start Date End Date Ruddy Cooper MD [address] [place], [place] 799961 PCP - General 02/16/02 Sid Storm MD [address] [place] [address] Physician Radiation Oncology 02/21/20 Vlad Velasquez MD [address] [place] [address] Home Care Provider Orthopedics 08/08/20 Rigoberto Chase, SURGICAL SUPERVISOR.HSE MANAGER [address] [place] [address] Referring Orthopedics 08/08/20 Elma Fuchs SURGICAL SUPERVISOR.HSE MANAGER [address] [place] [address] Sales Expert Internal Medicine 07/20/24 Bradford John APRN.CLEANING VALIDATION CONSULTANT [address] [place] [address] Sales Expert Internal Medicine 09/15/24 Mireya Thomas, emission technician [employer] 10/13/24 Dea Dietz LSW [place] Waste Machine Operator 10/14/24 Laundry Technician Relationship Specialty Start Date End Date Ruddy Cooper MD [address] [place] [address] PCP - General 02/16/02 Sid Storm MD [address] [place] [address] Physician Radiation Oncology 02/21/20 Vlad Velasquez MD [address] [place] [address] Home Care Provider Orthopedics 08/08/20 Rigoberto Chase, SURGICAL SUPERVISOR.HSE MANAGER [address] [place] [address] Referring Orthopedics 08/08/20 Elma Fuchs SURGICAL SUPERVISOR.HSE MANAGER [address] [place], [place] 642241 Sales Expert Internal Medicine 07/20/24 Bradford John APRN.CLEANING VALIDATION CONSULTANT [address] [place], [place] 738551 Sales Expert Internal Medicine 09/15/24 Mireya Thomas, emission technician [employer] 10/13/24 Dea Dietz LSW [employer] Waste Machine Operator 10/14/24 Team Status: Active Member Role Status [...] Provider Active Star t: October 19, 2024 Laundry Technician Relationship Specialty Start Date End Date Ruddy Cooper MD [address] [place] [address] PCP - General 02/16/02 Sid Storm MD [address] [place], [place] 342181 Physician Radiation Oncology 02/21/20 Vlad Velasquez MD [address] [place] [address] Home Care Provider Orthopedics 08/08/20 Rigoberto Chase APRN.HSE MANAGER [address] [facility], [address] [place] [address] Referring Orthopedics 08/08/20 Elma Fuchs SURGICAL SUPERVISOR.HSE MANAGER [address] [place] [address] Sales Expert Internal Medicine 07/20/24 Bradford John, SHAHID.CLEANING VALIDATION CONSULTANT [address] [place], [place] 846111 Sales Expert Internal Medicine 09/15/24 Mireya Thomas, emission technician [employer] 10/13/24 Dea Dietz LSW [employer] Waste Machine Operator 10/14/24 Laundry Technician Relationship Specialty Start Date End Date Ruddy Cooper MD [address] [place] [address] PCP - General 02/16/02 Sid Storm MD [address] [place], [place] 407061 Physician Radiation Oncology 02/21/20 Vlad Velasquez MD [address] [place] [address] Home Care Provider Orthopedics 08/08/20 Rigoberto Chase SURGICAL SUPERVISOR.HSE MANAGER [address] [address] Referring Orthopedics 08/08/20 Elma Fuchs SURGICAL SUPERVISOR.HSE MANAGER [address] [place], [place] 060181 Sales Expert Internal Medicine 07/20/24 Bradford John, SURGICAL SUPERVISOR.CLEANING VALIDATION CONSULTANT [address] [place] [address] Sales Expert Internal Medicine 09/15/24 Dea Dietz LSW [employer] Waste Machine Operator 10/14/24 Team Status: Active Member Role/Relationship Status Dates Dr. Ruddy Cooper MD Primary Care Provider Active Team Status: Inactive Member Role/Relationship Status Dates Dr. Ruddy Cooper MD Primary Care Provider Active Start: August 25, 2024 End: August 30, 2024 Dr. Hermes Salas , Emergency Provider Active Start: August 25, 2024 End: August 30, 2024 Dr. Isabel Michelle MD Admit Provider Active St art: August 25, 2024 End: August 30, 2024 Dr. Isabel Michelle MD Other Provider Active St art: August 25, 2024 End: August 30, 2024 Dr. Jose Mariee , Attending Provider Active Start: August 25, 2024 End: August 30, 2024 Dr. Veto Lynne DO Other Provider Active Start: August 25, 2024 End: August 30, 2024 Team Status: Active Member Role/Relationship Status Dates Dr. Ruddy Cooper MD Primary Care Provider Active Start: August 26, 2024 Dr. Hermes Salas DO Emergency Provider Active Start: August 26, 2024 Dr. Isabel Michelle MD Admit Provider Active St art: August 26, 2024 Dr. Isabel Michelle MD Other Provider Active St art: August 26, 2024 Dr. Veto Lynne , Attending Provider Active Start: August 26, 2024 Dr. Veto Lynne , Other Provider Active Start: August 26, 2024 Team Status: Active Member Role/Relationship Status Dates Dr. Ruddy Cooper MD Primary Care Provider Active Start: August 27, 2024 Dr. Hermes Salas DO Emergency Provider Active Start: August 27, 2024 Dr. Isabel Michelle MD Admit Provider Active St art: August 27, 2024 Dr. Isabel Michelle MD Other Provider Active St art: August 27, 2024 Dr. Veto Lynne DO Attending Provider Active Start: August 27, 2024 Dr. Veto Lynne , DO Other Provider Active Start: August 27, 2024 Team Status: Active Member Role/Relationship Status Dates Dr. Ruddy Cooper MD Primary Care Provider Active Start: August 28, 2024 Dr. Hermes Salas DO Emergency Provider Active Start: August 28, 2024 Dr. Isabel Michelle MD Admit Provider Active St art: August 28, 2024 Dr. Isabel Michelle MD Other Provider Active St art: August 28, 2024 Dr. Veto Lynne DO Attending Provider Active Start: August 28, 2024 Dr. Veto Lynne DO Other Provider Active Start: August 28, 2024 Team Status: Active Member Role/Relationship Status Dates Dr. Ruddy Cooper MD Primary [...] Start: August 29, 2024 Dr. Veto Lynne DO Other Provider Active Start: August 29, 2024 Team Status: Active Member Role/Relationship Status Dates Dr. Ruddy Cooper MD Primary Care Provider Active Start: August 30, 2024 Dr. Hermes Salas , DO Emergency Provider Active Start: August 30, 2024 Dr. Isabel Michelle MD Admit Provider Active St art: August 30, 2024 Dr. Isabel Michelle MD Other Provider Active St art: August 30, 2024 Dr. Jose Mariee DO Attending Provider Active Start: August 30, 2024 Dr. Jose Mariee , DO Other Provider Active Star t: August 30, 2024 Dr. Veto Lynne DO Other Provider Active Start: August 30, 2024 Team Status: Inactive Member Role/Relationship Status Dates Dr. Ruddy Cooper MD Primary Care Provider Active Start: September 08, 2024 End: September 09, 2024 Dr. Yossi Heredia MD Attending Provider Active S tart: September 08, 2024 End: September 09, 2024 Dr. Yossi Heredia MD Emergency Provider Active S tart: September 08, 2024 End: September 09, 2024 Team Status: Inactive Member Role/Relationship Status Dates Dr. Ruddy Cooper MD Primary [...] October 12, 2024 Team Status: Active Member Role/Relationship Status Dates Dr. Ruddy Cooper MD Primary Care Provider Active Start: October 10, 2024 Dr. Jose Dodd DO Emergency Provider Active Start: October 10, 2024 Dr. Luis Baer MD Admit Provider Active Start: October 10, 2024 Dr. Luis Baer MD Attending Provider Active Start: October 10, 2024 Dr. Luis Baer MD Other Provider Active Start: October 10, 2024 Team Status: Active Member Role/Relationship Status Dates Dr. Ruddy Cooper MD Primary Care Provider Active Start: October 11, 2024 Dr. Jose Dodd DO Emergency Provider Active Start: October 11, 2024 Dr. Luis Baer MD Admit Provider Active Start: October 11, 2024 Dr. Luis Baer MD Attending Provider Active Start: October 11, 2024 Dr. Luis Baer MD Other Provider Active Start: October 11, 2024 Team Status: Active Member Role/Relationship Status Dates Dr. Ruddy Cooper MD Primary Care Provider Active Start: October 12, 2024 Dr. Jose Dodd DO Emergency Provider Active Start: October 12, 2024 Dr. Luis Baer MD Admit Provider Active Start: October 12, 2024 Dr. Luis Baer MD Attending Provider Active Start: October 12, 2024 Dr. Luis Baer MD Other Provider Active Start: October 12, 2024 Team Status: Inactive Member Role/Relationship Status Dates Dr. Ruddy Cooper MD Primary Care Provider Active Start: October 19, 2024 End: October 25, 2024 Dr. Mikel Bonilla DO Emergency Provider Active Start : October 19, 2024 End: October 25, 2024 Dr. Desiree Awan MD Admit Provider Active Star t: October 19, 2024 End: October 25, 2024 Dr. Desiree Awan MD Other Provider Active Star t: October 19, 2024 End: October 25, 2024 Dr. Fitz Vázquez DO Attending Provider Active Start: October 19, 2024 End: October 25, 2024 Team Status: Active Member Role/Relationship Status Dates Dr. Ruddy Cooper MD Primary Care Provider Active Start: October 19, 2024 Dr. Mikel Bonilla DO Emergency Provider Active Start : October 19, 2024 Dr. Desiree Awan MD Admit Provider Active Star t: October 19, 2024 Dr. Desiree Awan MD Attending Provider Active Start: October 19, 2024 Dr. Desiree Awan MD Other Provider Active Star t: October 19, 2024 Team Status: Active Member Role/Relationship Status Dates Dr. Ruddy Cooper MD Primary Care Provider Active Start: October 20, 2024 Dr. Mikel Bonilla DO Emergency Provider Active Start : October 20, 2024 Dr. Desiree Awan MD Admit Provider Active Star t: October 20, 2024 Dr. Desiree Awan MD Other Provider Active Star t: October 20, 2024 Dr. Fitz Vázquez DO Attending Provider Active Start: October 20, 2024 Dr. Fitz Vázquez DO Other Provider Active S tart: October 20, 2024 Team Status: Active Member Role/Relationship Status Dates Dr. Ruddy Cooper MD Primary Care Provider Active Start: October 21, 2024 Dr. Mikel Bonilla DO Emergency Provider Active Start : October 21, 2024 Dr. Desiree Awan MD Admit Provider Active Star t: October 21, 2024 Dr. Desiree Awan MD Other Provider Active Star t: October 21, 2024 Dr. Fitz Vázquez DO Attending Provider Active Start: October 21, 2024 Dr. Fitz Vázquez DO Other Provider Active S tart: October 21, 2024 Team Status: Active Member Role/Relationship Status Dates Dr. Ruddy Cooper MD Primary Care Provider Active Start: October 22, 2024 Dr. Mikel Bonilla DO Emergency Provider Active Start : October 22, 2024 Dr. Desiree Awan MD Admit Provider Active Star t: October 22, 2024 Dr. Desiree Awan MD Other Provider Active Star t: October 22, 2024 Dr. Fitz Vázquez DO Attending Provider Active Start: October 22, 2024 Dr. Fitz Vázquez DO Other Provider Active S tart: October 22, 2024 Team Status: Active Member Role/Relationship Status Dates Dr. Ruddy Cooper MD Primary Care Provider Active Start: October 23, 2024 Dr. Mikel Bonilla DO Emergency Provider Active Start : October 23, 2024 Dr. Desiree Awan MD Admit Provider Active Star t: October 23, 2024 Dr. Desiree Awan MD Other Provider Active Star t: October 23, 2024 Dr. Fitz Vázquez DO Attending Provider Active Start: October 23, 2024 Dr. Fitz Vázquez DO Other Provider Active S tart: October 23, 2024 Team Status: Active Member Role/Relationship Status Dates Dr. Ruddy Cooper MD Primary Care Provider Active Start: October 24, 2024 Dr. Mikel Bonilla DO Emergency Provider Active Start : October 24, 2024 Dr. Desiree Awan MD Admit Provider Active Star t: October 24, 2024 Dr. Desiree Awan MD Other Provider Active Star t: October 24, 2024 Dr. Fitz Vázquez DO Attending Provider Active Start: October 24, 2024 Dr. Fitz Vázquez DO Other Provider Active S tart: October 24, 2024 Team Status: Active Member Role/Relationship Status Dates Dr. Ruddy Cooper MD Primary Care Provider Active Start: October 25, 2024 Dr. Mikel Bonilla DO Emergency Provider Active Start : October 25, 2024 Dr. Desiree Awan MD Admit Provider Active Star t: October 25, 2024 Dr. Desiree Awan MD Other Provider Active Star t: October 25, 2024 Dr. Fitz Vázquez DO Attending Provider Active Start: October 25, 2024 Dr. Fitz Vázquez DO Other Provider Active S tart: October 25, 2024 Laundry Technician Relationship Specialty Start Date End Date Ruddy Cooper MD [address] [place] [address] PCP - General 02/16/02 Sid Storm MD [address] [address] Physician Radiation Oncology 02/21/20 Vlad Velasquez MD [address] [place] [address] Home Care Provider Orthopedics 08/08/20 Rigoberto Chase SURGICAL SUPERVISOR.HSE MANAGER [address] [facility], [address] [place] [address] Referring Orthopedics 08/08/20 Elma Fuchs SURGICAL SUPERVISOR.HSE MANAGER [address] [place] [address] Sales Expert Internal Medicine 07/20/24 Bradford John, SURGICAL SUPERVISOR.CLEANING VALIDATION CONSULTANT [address] [place] [address] Sales Expert Internal Medicine 09/15/24 Dea Dietz LSW [employer] Waste Machine Operator 10/14/24 Team Status: Active Member Role/Relationship Status Dates Dr. Ruddy Cooper MD Primary Care Provider Active Start: November 02, 2024 William JOHNSON MD Attending Provider Active Start: November 02, 2024 William JOHNSON MD Referring Provider Active Start: November 02, 2024 Laundry Technician Relationship Specialty Start Date End Date Ruddy Cooper MD [address] [place] [address] PCP - General 02/16/02 Sid Storm MD [address] [place] [address] Physician Radiation Oncology 02/21/20 Vlad Velasquez MD [address] [place] [address] Home Care Provider Orthopedics 08/08/20 Rigoberto Chase SURGICAL SUPERVISOR.HSE MANAGER [address] [address] Referring Orthopedics 08/08/20 Elma Fuchs SURGICAL SUPERVISOR.HSE MANAGER [address] [place], [place] [address]01 Sales Expert Internal Medicine 07/20/24 Bradford John, SURGICAL SUPERVISOR.CLEANING VALIDATION CONSULTANT [address] [place], [place] [id number] Sales Expert Internal Medicine 09/15/24 Team Status: Active Member Role/Relationship Status Dates Dr. Ruddy Cooper MD Primary Care Provider Active Start: November 03, 2024 William JOHNSON MD Attending Provider Active Start: November 03, 2024 Team Status: Inactive Member Role/Relationship Status Dates Dr. Ruddy Cooper MD Primary Care Provider Active Start: December 01, 2024 End: December 01, 2024 Dr. Dillon Loza DO Emergency Provider Active S tart: December 01, 2024 End: December 01, 2024 Team Status: Inactive Member Role/Relationship Status Dates Kathryn Grande ADVERTISING EXECUTIVE, ADVERTISING EXECUTIVE-C Attending Provider Active Start: November 01, 2024 End: November 01, 2024 Team Status: Active Member Role/Relationship Status Dates William JOHNSON MD Attending Provider Active Start: November 27, 2024 Laundry Technician Relationship Specialty Start Date End Date Ruddy Cooper MD [address] [place], [place] [id number] PCP - General 02/16/02 Sid Storm MD [address] [place], [place] [id number] Physician Radiation Oncology 02/21/20 Vlad Velasquez MD [address] [place] [address] Home Care Provider Orthopedics 08/08/20 Rigoberto Chase APRN.HSE MANAGER [address] [facility], [address] [place] [address] Referring Orthopedics 08/08/20 Elma Fuchs APRN.HSE MANAGER [address] [place], [place] [id number] Sales Expert Internal Medicine 07/20/24 Bradford John APRN.CLEANING VALIDATION CONSULTANT [address] [place], [place] 630581 Sales Expert Internal Medicine 09/15/24 Team Status: Inactive Member Role/Relationship Status Dates Dr. Ruddy Cooper MD Primary Care Provider Active Start: December 01, 2024 End: December 01, 2024 Dr. Dillon Loza DO Attending Provider Active S tart: December 01, 2024 End: December 01, 2024 Dr. Dillon Loza DO Emergency Provider Active S tart: December 01, 2024 End: December 01, 2024 Team Status: Inactive Member Role/Relationship Status Dates Dr. Ruddy Cooper MD Primary Care Provider Active Start: December 01, 2024 End: December 01, 2024 Kathryn Grande ADVERTISING EXECUTIVE, ADVERTISING EXECUTIVE-C Attending Provider Active Start: December 01, 2024 End: December 01, 2024 Laundry Technician Relationship Specialty Start Date End Date Ruddy Cooper MD [address] [place], [place] [id number] PCP - General 02/16/02 Sid Storm MD [address] [place], [place] [id number] Physician Radiation Oncology 02/21/20 Vlad Velasquez MD [address] [place] [place] [address] Home Care Provider Orthopedics 08/08/20 Rigoberto Chase APRN.HSE MANAGER [address] [place] [id number] Referring Orthopedics 08/08/20 Elma Fuchs APRN.HSE MANAGER [address] [place] [address] Sales Expert Internal Medicine 07/20/24 Bradford John APRN.CLEANING VALIDATION CONSULTANT [address] [place] [address] Sales Expert Internal Medicine 09/15/24 Laundry Technician Relationship Specialty Start Date End Date Ruddy Cooper MD [address] [place] [address] PCP - General 02/16/02 Sid Storm MD [address] [place] [address] Physician Radiation Oncology 02/21/20 Vlad Velasquez MD [address] [place] [place] [address] Home Care Provider Orthopedics 08/08/20 Rigoberto Chase APRN.HSE MANAGER [address] [place] [id number] Referring Orthopedics 08/08/20 Elma Fuchs APRN.HSE MANAGER [address] [place] [address] Sales Expert Internal Medicine 07/20/24 Bradford John APRN.CLEANING VALIDATION CONSULTANT [address] [place] [address] Sales Expert Internal Medicine 09/15/24 Goals (unrecognized section and content) Goals may be documented in a n alternate sectionGoals may be documented in an alternate section FOR RECORDS PERTAINING TO PATIENTS [...] BE BASED ON THE PRIMARY CLINICAL RECORDS. [employer] provides no warranty or guarantee of the accuracy or completeness of information in this document.
[2024-12-24 19:25] VITALS: BP 115/76
[2024-12-24 19:42] LABS: Anion Gap 13 (5-15); BUN 22 mg/dL (4-19); BUN/Creat Ratio 24.9 RATIO (10-20); Calcium,Total 9.9 mg/dL (7.6-11.0); Carbon Dioxide 23.7 mmol/L (21.0-32.0); Chloride 102 mmol/L (98-108); Estimated Creatinine Clearance 44.78 ml/min (50-250); Glucose 101 mg/dL (70-99); Potassium 4.3 mmol/L (3.3-5.1)
[2024-12-24 19:53] LABS: Color, Urine Yellow (Yellow); Glucose, Dipstick Normal (Normal); Ketone-Dipstick Negative (Negative); Leukocyte Esterase-Dipstick 100 /ul (Negative); Nitrite-Dipstick Negative (Negative); Occult Blood-Urine Negative /ul (Negative); Protein-Dipstick 30 mg/dl (Negative); Specific Gravity, Urine 1.020 (1.002-1.030); Urine Bilirubin Dipstick Negative (Negative)
[2024-12-24 20:40] LABS: Calcium Oxalate Crystals Ur 2+ /hpf (<or=2+)
[2024-12-24 20:41] LABS: Red Blood Cells-Urine 0-5 SEEN /hpf (0-5); Squamous Epithelial Cells - UA 0-5 SEEN /hpf (5-10)
--- NOTE | 2024-12-24 20:45 | CM.ED ---
Social Work Brian was brought into the ED by police due to patient being at a downtown bank and showing confusion. commercial loan officer attempted to contact someone to help patient and get her home but was unsuccessful so he brought to ED for evaluation. ADRYAN met with patient and patients friend Desiree. Patient presented alert and oriented, knew the month, day, current location and the President. Patient also recalled todays events with accuracy. Patients friend Desiree states that she calls patient daily and tries to get to her home 1 - 2 days a week. Desiree states that she helps patient with light housekeeping such as folding clothes, taking out trash and making the bed. Desiree states that patient gets her own groceries, cooks her meals, picks up the condo and does dishes most of the time. Patient reports that she has been using [employer] to get around [place] and to the stores that she wants to go to. Desiree stated that having someone come to the home a few hours a week may be helpful for patient. ADRYAN spoke with patients daughter Sade and asked about a HH aide, daughter stated that she has attempted to provide patient one in the past and patient kicked her out of her home. Patient denies any needs at this time. Apoorva Guzman, TREE SPECIALIST, FRET SAW OPERATOR
[2024-12-24 21:28] VITALS: BP 141/99; PULSE 90; RESP 18; TEMP 36.6; O2SAT 99
== END 2024-12-24 21:50 | disposition home or self-care (01) ==
PROVIDERS: Emergency Provider Emergency Medicine; PCP Internal Medicine; Visit Provider Emergency Medicine
DX: R41.0 Disorientation, unspecified (principal); F02.80 Dementia in other diseases classified elsewhere, unspecified severity, without behavioral disturbance, psychotic disturbance, mood disturbance, and anxiety; I10 Essential (primary) hypertension; Z90.710 Acquired absence of both cervix and uterus; E78.5 Hyperlipidemia, unspecified; Z79.82 Long term (current) use of aspirin; Z79.899 Other long term (current) drug therapy; Z90.49 Acquired absence of other specified parts of digestive tract; Z96.659 Presence of unspecified artificial knee joint; Z98.49 Cataract extraction status, unspecified eye
CPT/HCPCS: 80048; 81001; 85025; 87086; 87088; 99282; A4216

== ENCOUNTER 2025-03-11 13:30 | Outpatient (RCR) | payer MEDICARE, SELFPAY ==
--- NOTE | 2025-01-27 15:53 | HP.PTEVAL_ITS ---
Patient's Visit Information Visit Information Visit Information: QUINCY KRAUSE is a 80 year old F referred to Physical Therapy by Dr. Zabrina Meyer MD with a diagnosis of cognitive impairment. Date of Evaluation: 01/27/25 Physical Therapist: Jose Miller, DPT, OCS, CSCS Visit Plan Frequency: 2x /Week Duration: 4-6 Weeks Plan: 2x/week for 4-6 weeks... IE HEP balance HO review, eeducate on neuropathy and modifiable factors of balance, balance safety and brianne to emily cane 100% of time. treat with instruction in and progression of ankle strength, balance and wt shift and proprioceptive ex, general LE strength and postural strength adn progress to safe and I home program to subhash with pics. Subjective Subjective: Saw Dr. Wilder's office and sent for PT due to not walking normal. Pt tends to waddle and take short steps and afraid of falling. Fell a month ago, one of many, and sometimes catches toe. Typically uses cane out and about, at home sometimes if she is outside, not really in the house but holds onto furniture. No spinning, numb from knees down maybe due to standing too much. Has DM, found out late 6 months ago. Lgs been numb for years. No back problems. Sleep is OK but loses due to stress. Not employed, reetired 2017 from [employer]. Spends day: straightening up house, hang out with sister who helps her at home. Balance and weakness keep her from heavy activity. Had brain surgery for brain anyeurysms fixing. Hobbies: walking around. basic ADLs dressing , bathroom I, shower I. memory and cognition down since last surgery anyerism 2 yrs ago. One small step at home. Needs to walk to ramp to get mail and wants to get up off floor. Objective Objective: Oriented: name, BD, day, Place yes. Walks with short steps and lacking weight shift, neurologic avoidance of push off B. R foot turned out, obvious weakness in ankles. Transfer chair I with UE , unable without. Bed transfer I. Steps hard adn weak but able with two rails. Poor balance. Cane is defintiely appropriate for safety and needed . hip strength 3/5 and only gets to neutral extension. knee strength 3+ and HS too tight to get knee straight seated. ankles DF 3-, PF 3-, inv 3-, eversion 3- Sensation B LE mid hernandez down hard to feel even firm touch B. reflexes 1/3 patella dn 0/3 achilles reciprocal toe and heel tap is poor. Balance/Special Test Scores Functional Gait Assessment Score: 13 % Disability: 56.6700 Lower Extremity Functional Score: 33 TUG Test Time Seconds: 16 30 Second Chair Rise Test Seconds: 9 Goals Goal 1:: 2030 FGA to diminish fall risk Goal Time Frame: 4-6 Weeks Goal 2:: I appropriate HEP to limit future problems with sedentarism Goal Time Frame: 4-6 Weeks Goal 3:: Get up off floor with UE without problms I Goal Time Frame: 4-6 Weeks Goal 4:: Pt feel 50% better in overall mobility adn strength Goal Time Frame: 4-6 Weeks Goal 5:: LEFS score 45 Goal Time Frame: 4-6 Weeks Rehabilitation Potential Physical Therapy Diagnosis: Overall balance deficits with neuropathy, weakness and sedentarism being the culprit. Rehabilitation Potential: Questionable Anticipated Interventions Patient/Client Instruction: Educate patient on: Condition and Plan of Care For the Purpose of:: To improve nutrient delivery to tissue, To improve muscle performance and motor function, To increase tolerance to activity /condition/position and To improve ability of physical actions for home/community/work/leisure Therapeutic Exercise to Include: Strength training, Balance training, Postural training and Gait and locomotor training For the Purpose of:: To improve muscle performance and motor function, To increase tolerance to activity/condition/position, To improve ability of physical actions for home/community/work/leisure, To improve gait and locomotor functions, To improve health of tissue and To improve safety Text: Thank you for the opportunity to evaluate your patient. For Medicare and Medicare HMO plans, please review the plan of care and approve it. It will need to be FAXED BACK to us at [phone] for Medicare purposes. For Medicare only, by signing this I certify the plan of care. Please let me know if there are questions or concerns regarding this plan of care. Physician Si gnature: Date:
--- NOTE | 2025-05-20 10:37 | HP.PT.NRP ---
Patient Information Patient Information: QUINCY KRAUSE was seen in my office for initial evaluation on 01/27/25. The following Plan of Care was established for this patient: POC Established Initial Frequency: 2x /Week Initial Duration: 4-6 Weeks Anticipated Interventions Patient/Client Instruction: Educate patient on: Condition and Plan of Care For the Purpose of:: To improve nutrient delivery to tissue, To improve muscle performance and motor function, To increase tolerance to activity/condition/position and To improve ability of physical actions for home/community/work/leisure Therapeutic Exercise to Include: Strength training, Balance training, Postural training and Gait and locomotor training For the Purpose of:: To improve muscle performance and motor function, To increase tolerance to activity/condition/position, To improve ability of physical actions for home/community/work/leisure, To improve gait and locomotor functions, To improve health of tissue and To improve safety Last Seen Last Seen: This patient was last seen in our office 03/11/25. Pertinent comments regarding their Physical therapy will appear below: Pt seen 12 visits of POC and had 3 more left but did not attend. At this point, it has been over 2 months and I will discontinue from my care. At this point I will be discontinuing this patient from physical therapy. I would be happy to see this patient again in the future if found appropriate by the physician. Thank you! Jose Miller, DPT, OCS, CSCS Balance/Gait/Functional tests Balance/Special Test Scores Functional Gait Assessment Score: 19 % Disability: 36.6700 Lower Extremity Functional Score: 27 TUG Test Time Seconds: 16 Tug Test: <20 sec.=mostly independent 30 Second Chair Rise Test Seconds: 9
== END 2025-03-11 19:00 | disposition home or self-care (01) ==
LOC: PT 13:30
PROVIDERS: PCP Internal Medicine; Referring Provider Internal Medicine; Visit Provider Internal Medicine
DX: G31.84 Mild cognitive impairment of uncertain or unknown etiology (principal)
CPT/HCPCS: 97110; 97163; 97530